=== PATIENT | male | born 1945 | race Caucasian/White ===

== ENCOUNTER 2023-01-08 10:28 | Outpatient (OUT) | payer MEDICARE, SELFPAY ==
--- NOTE | 2023-01-08 11:05 | P.CN_ITS ---
Consult Note: HPI Data of Consult Patient: known to practice within the last 3 years Requesting Physician: HUBERT LOPEZ NP Primary Care Provider: Shaikh Dotty MD Consult Narrative Narrative: Vasyl Broussard a pleasant 77 year old male presents for follow up on chronic low back pain, today pain is 2/10. Patient is following with [facility] Neurosurgery for back pain and is pending MRI. Patient has been taking lyrica 75mg q day, norco 5/325 2-3 times a day PRN for pain, and baclofen 10mg PRN HS. cc:: CC: HUBERT LOPEZ NP Review of Systems ROS Status of ROS 10 or more systems reviewed and unremarkable except as noted in history and below Exam Constitutional Common normals: no apparent distress, average body habitus, oriented x3, healthy appearing, alert and well nourished General appearance: cooperative HENHI Common normals: normocephalic Head and scalp: normocephalic Mouth: oral and palatal mucosa normal Eye Common normals: PERRL Pupil: PERRL Neck & C-Spine Common normals: full ROM General: normal visual inspection Chest Common normals: inspection of chest normal Respiratory Common normals: normal respiratory effort, no retractions and no use of accessory muscles Back & Pelvis Common normals: thoracic and lumbar spine normal to inspection Thoracic spine/upper back: normal to inspection and thoracic ROM normal Lumbar spine/lower back: normal to inspection, ROM limited, pain with ROM and straight leg raise negative bilaterally Other: diffuse low back pain without radiculopathy, facet loading bilaterally causes discomfort. no tenderness to PSIS or SIJ joints upon palpation. Extremity Common normals: normal to inspection, full ROM, normal capillary refill, no clubbing, cyanosis or edema, no calf tenderness and no pedal edema Other: patient reports intermittent claudication, known history Neuro Common normals: oriented x3, CN's II-XII intact bilaterally, moves all extremities, no focal motor deficits, no sensory deficits noted, deep tendon reflexes 2+ bilaterally and gait normal Sensorium/orientation: alert Motor exam: strength 5/5 throughout and no movement abnormalities noted Psych Common normals: mental status grossly normal, thought process normal, cooperative, affect normal, speech normal and activity/motor behavior normal Appearance: grossly normal Speech: normal speech Thought process: normal thought process Assessment and Plan Assessment and Plan (1) Lumbar spondylosis: (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 I feel these medications are improving the patient's quality of life and allow them to tolerate activities of daily living as well as participate in recreational activity.? The patient does not report intolerable side effects. The patient is NOT opioid naive and non-pharmacologic and non-opioid treatment has failed to significantly relieve the patient's pain and improve functionality. The patient has a diagnosis that is related to a somatic or visceral pain etiology. ? ?? I reviewed with the patient the potential risks and side effects with the use of? opioid medications including but not limited to respiratory depression,? sedation, and even . I verified the patient has access to naloxone should? these effects occur. I advised the patient to avoid the use of any other? sedation substances including alcohol, THC, and benzodiazepines while? taking opioid medications due to the risk of compounding side effects and? detrimental outcomes. I reviewed the PUBLIC HEALTH PROFESSOR, pain treatment agreement, urine? drug screen, and opioid start talking forms. The patient was advised to let? their family know they had Naloxone in case they would need to administer? the medication.? ?? A drug screen was completed within the last year, and no aberrancies were noted regarding their use of controlled substances. The patient understands they are subject to the terms and conditions of the pain contract that they have signed. ? ?? I have checked an OARRS report on this patient today and there are no aberrancies noted in the prescribing history.? (3) Medication management: (4) Muscle spasm: Plan continue follow up with [facility] change lyrica to 75mg BID, evaluate blood work and patient response to medication at next visit (has tried gabapentin with success in the past) continue norco 5/325 BID-TID PRN pain nalaxone discussed, previously prescribed continue baclofen 10mg prn HS f/u in one month
== END 2023-01-08 10:29 | disposition home or self-care (01) ==
PROVIDERS: PCP Internal Medicine; Visit Provider Nurse Practitioner
DX: M47.816 Spondylosis without myelopathy or radiculopathy, lumbar region (principal); Z79.891 Long term (current) use of opiate analgesic
CPT/HCPCS: G0463

== ENCOUNTER 2023-02-05 12:47 | Outpatient (OUT) | payer MEDICARE, SELFPAY ==
--- NOTE | 2023-02-05 13:15 | P.CN_ITS ---
Consult Note: HPI Data of Consult Patient: known to practice within the last 3 years Requesting Physician: Jennie Ferrera NP Primary Care Provider: Shaikh Dotty MD Consult Narrative Narrative: Vasyl Broussard a pleasant 77 year old male presents for follow up on chronic low back pain, today pain is 3/10. Patient is following with [facility] for back pain and is pending MRI. Patient did not do well with increase of lyrica 75mg BID, caused dizziness and fogginess. Patient continues to have moderate to severe intermittent pain, norco works well for this. cc:: CC: Jennie Ferrera NP Review of Systems ROS Status of ROS 10 or more systems reviewed and unremarkable except as noted in history and below Musculoskeletal Reports: back pain Exam Constitutional Documenting provider has reviewed patient's vital signs: yes Common normals: no apparent distress, oriented x3, healthy appearing, alert and well nourished General appearance: cooperative HENMT Common normals: normocephalic, hearing grossly normal bilaterally and moist oral mucous membranes Head and scalp: normocephalic Eye Common normals: PERRL Pupil: PERRL Neck & C-Spine Common normals: full ROM General: normal visual inspection Chest Common normals: inspection of chest normal Respiratory Common normals: normal respiratory effort, no retractions and no use of accessory muscles Back & Pelvis Lumbar spine/lower back: ROM limited, pain with ROM and straight leg raise negative bilaterally Extremity Common normals: normal to inspection and full ROM Neuro Common normals: oriented x3, CN's II-XII intact bilaterally, moves all extremities, no focal motor deficits, no sensory deficits noted and deep tendon reflexes 2+ bilaterally Sensorium/orientation: alert Gait (neuro): antalgic Motor exam: strength 5/5 throughout and no movement abnormalities noted Other: intermittent numbness burning to BLE. Psych Common normals: mental status grossly normal, thought process normal, cooperative, affect normal, speech normal and activity/motor behavior normal Speech: normal speech Thought process: normal thought process Results Additional Findings Additional findings: I have checked an OARRS report on this patient today and there are no aberrancies noted in the prescribing history.?? A drug screen was completed and reviewed within the last year, and if there has not been a drug screen completed we ordered one today to monitor higher risk, state monitored pain medication use. As part of providing excellent, safe, comprehensive care, the following was completed at our patient's visit: 1. A medication reconciliation and review to ensure accurate knowledge of current/active medications, including asking our patients to inform us about any [id number] medications or herbal remedies/nutritional supplements/alternative remedies. 2. A review to specifically ensure our patients have had annual screening for: elevated body mass index (BMI), tobacco use, screening for depression, and screening for unhealthy alcohol use. When screening is concerning, patients are provided with education and the specific recommendation to discuss the concerning health issue and treatment options with their primary care provider. 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
== END 2023-02-05 12:48 | disposition home or self-care (01) ==
PROVIDERS: PCP Internal Medicine; Visit Provider Nurse Practitioner
DX: M47.816 Spondylosis without myelopathy or radiculopathy, lumbar region (principal); M62.838 Other muscle spasm; Z79.891 Long term (current) use of opiate analgesic; N18.9 Chronic kidney disease, unspecified; M79.2 Neuralgia and neuritis, unspecified
CPT/HCPCS: G0463

== ENCOUNTER 2023-03-18 13:15 | Outpatient (OUT) | payer MEDICARE, SELFPAY ==
--- NOTE | 2023-03-18 14:13 | P.CN_ITS ---
Consult Note: HPI Data of Consult Patient: known to practice within the last 3 years Requesting Physician: Jennie Ferrera NP Primary Care Provider: Shaikh Dotty MD Consult Narrative Narrative: Vasyl Broussard a pleasant 77 year old male presents for follow up on chronic low back pain and bilateral hip, today pain is 3/10. Patient is following with [facility] for back pain. Patient has been tolerating gabapentin 100mg QD well without side effects, noticing mild improvement in pain. cc:: CC: Jennie Ferrera NP Review of Systems ROS Status of ROS 10 or more systems reviewed and unremarkable except as noted in history and below Musculoskeletal Reports: back pain and joint pain Meds Home Medications and Allergies Home Medications Medication Instructions Recorded Confirmed Type amlodipine 10 mg tablet 10 mg PO DAILY 02/05/23 02/05/23 History aspirin 81 mg capsule 81 mg PO DAILY 02/05/23 02/05/23 History atenolol 50 mg tablet 50 mg PO DAILY 02/05/23 02/05/23 History baclofen 10 mg tablet 10 mg PO DAILY 02/05/23 02/05/23 History ezetimibe 10 mg tablet 10 mg PO DAILY 02/05/23 02/05/23 History gabapentin 100 mg capsule 100 mg PO DAILY #30 caps 02/05/23 Rx hydrocodone 7.5 mg-acetaminophen 1 tab PO TID PRN pain #90 tabs 02/05/23 Rx 325 mg tablet pregabalin 75 mg capsule (Lyrica) 75 mg PO TID 02/05/23 02/05/23 History terazosin 10 mg capsule 10 mg PO DAILY 02/05/23 02/05/23 History hydrocodone 7.5 mg-acetaminophen 1 tab PO TID PRN pain #90 tabs 03/09/23 Rx 325 mg tablet Allergies Allergy/AdvReac Type Severity Reaction Status Date / Time No Known Drug Allergies Allergy Verified 02/05/23 13:58 Exam Constitutional Documenting provider has reviewed patient's vital signs: yes Common normals: no apparent distress, oriented x3, healthy appearing, alert and well nourished General appearance: cooperative HENMT Common normals: normocephalic, hearing grossly normal bilaterally and moist oral mucous membranes Head and scalp: normocephalic Eye Common normals: PERRL Pupil: PERRL Neck & C-Spine Common normals: full ROM General: normal visual inspection Chest Common normals: inspection of chest normal Respiratory Common normals: normal respiratory effort, no retractions and no use of accessory muscles Back & Pelvis Lumbar spine/lower back: ROM limited, pain with ROM and straight leg raise negative bilaterally Extremity Common normals: normal to inspection and full ROM Left lower extremity: hip joint (pain with external rotation) Neuro Common normals: oriented x3, CN's II-XII intact bilaterally, moves all extremities, no focal motor deficits, no sensory deficits noted and deep tendon reflexes 2+ bilaterally Sensorium/orientation: alert Gait (neuro): antalgic Motor exam: strength 5/5 throughout and no movement abnormalities noted Other: intermittent numbness burning to BLE. 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
== END 2023-03-18 13:16 | disposition home or self-care (01) ==
LOC: PM 13:24
PROVIDERS: PCP Internal Medicine; Visit Provider Nurse Practitioner
DX: M47.896 Other spondylosis, lumbar region (principal); R25.2 Cramp and spasm; Z79.891 Long term (current) use of opiate analgesic; M79.2 Neuralgia and neuritis, unspecified; N28.9 Disorder of kidney and ureter, unspecified
CPT/HCPCS: G0463

== ENCOUNTER 2023-04-22 13:17 | Outpatient (OUT) | payer MEDICARE, SELFPAY ==
--- NOTE | 2023-04-22 13:55 | P.CN_ITS ---
Consult Note: HPI Data of Consult Patient: known to practice within the last 3 years Requesting Physician: Jennie Ferrera NP Primary Care Provider: Shaikh Dotty MD Consult Narrative Narrative: Vasyl Broussard a pleasant 77 year old male presents for follow up on chronic low back pain and bilateral hip, today pain is 6/10. Patient is following with [facility] Neurosurgery for back pain. Patient has been tolerating gabapentin 100mg QD well without side effects, noticing mild improvement in pain, had dizziness with 200mg. cc:: CC: Jennie Ferrera NP Review of Systems ROS Status of ROS 10 or more systems reviewed and unremarkable except as noted in history and below Musculoskeletal Reports: back pain and joint pain Meds Home Medications and Allergies Home Medications Medication Instructions Recorded Confirmed Type amlodipine 10 mg tablet 10 mg PO DAILY 02/05/23 02/05/23 History aspirin 81 mg capsule 81 mg PO DAILY 02/05/23 02/05/23 History atenolol 50 mg tablet 50 mg PO DAILY 02/05/23 02/05/23 History baclofen 10 mg tablet 10 mg PO DAILY 02/05/23 02/05/23 History ezetimibe 10 mg tablet 10 mg PO DAILY 02/05/23 02/05/23 History gabapentin 100 mg capsule 100 mg PO DAILY #30 caps 02/05/23 Rx hydrocodone 7.5 mg-acetaminophen 1 tab PO TID PRN pain #90 tabs 02/05/23 Rx 325 mg tablet pregabalin 75 mg capsule (Lyrica) 75 mg PO TID 02/05/23 02/05/23 History terazosin 10 mg capsule 10 mg PO DAILY 02/05/23 02/05/23 History hydrocodone 7.5 mg-acetaminophen 1 tab PO TID PRN pain #90 tabs 03/09/23 Rx 325 mg tablet hydrocodone 7.5 mg-acetaminophen 1 tab PO TID PRN pain #90 tabs 04/07/23 Rx 325 mg tablet Allergies Allergy/AdvReac Type Severity Reaction Status Date / Time No Known Drug Allergies Allergy Verified 02/05/23 13:58 Exam Constitutional Documenting provider has reviewed patient's vital signs: yes Common normals: no apparent distress, oriented x3, healthy appearing, alert and well nourished General appearance: cooperative HENMT Common normals: normocephalic, hearing grossly normal bilaterally and moist oral mucous membranes Head and scalp: normocephalic Eye Common normals: PERRL Pupil: PERRL Neck & C-Spine Common normals: full ROM General: normal visual inspection Chest Common normals: inspection of chest normal Respiratory Common normals: normal respiratory effort, no retractions and no use of accessory muscles Back & Pelvis Lumbar spine/lower back: ROM limited, pain with ROM and straight leg raise negative bilaterally Extremity Common normals: normal to inspection and full ROM Left lower extremity: hip joint (pain with external rotation) Neuro Common normals: oriented x3, CN's II-XII intact bilaterally, moves all extremities, no focal motor deficits, no sensory deficits noted and deep tendon reflexes 2+ bilaterally Sensorium/orientation: alert Gait (neuro): antalgic Motor exam: strength 5/5 throughout and no movement abnormalities noted Other: intermittent numbness burning to BLE. Psych Common normals: mental status grossly normal, thought process normal, cooperative, affect normal, speech normal and activity/motor behavior normal Speech: normal speech Thought process: normal thought process Results Additional Findings Additional findings: I have checked an OARRS report on this patient today and there are no aberrancies noted in the prescribing history.?? A drug screen was completed and reviewed within the last year, and if there has not been a drug screen completed we ordered one today to monitor higher risk, state monitored pain medication use. As part of providing excellent, safe, comprehensive care, the following was completed at our patient's visit: 1. A medication reconciliation and review to ensure accurate knowledge of curr ent/active medications, including asking our patients to inform us about any [id number] medications or herbal remedies/nutritional supplements/alternative remedies. 2. A review to specifically ensure our patients have had annual screening for: elevated body mass index (BMI), tobacco use, screening for depression, and screening for unhealthy alcohol use. When screening is concerning, patients are provided with education and the specific recommendation to discuss the concerning health issue and treatment options with their primary care provider. 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 The patient does not report intolerable side effects. The patient is NOT opioid naive and non-pharmacologic and non-opioid treatment has failed to significantly relieve the patient's pain and improve functionality. The patient has a diagnosis that is related to a somatic or visceral pain etiology. ? ?? I reviewed with the patient the potential risks and side effects with the use of? opioid medications including but not limited to respiratory depression,? sedation, and even . I verified the patient has access to naloxone should? these effects occur. I advised the patient to avoid the use of any other? sedation substances including alcohol, THC, and benzodiazepines while? taking opioid medications due to the risk of compounding side effects and? detrimental outcomes. I reviewed the CORPORATE LAW SPECIALIST, pain treatment agreement, urine? drug screen, and opioid start talking forms. The patient was advised to let? their family know they had Naloxone in case they would need to administer? the medication.? ?? A drug screen was completed within the last year, and no aberrancies were noted regarding their use of controlled substances. The patient understands they are s ubject to the terms and conditions of the pain contract that they have signed. ? ?? I have checked an OARRS report on this patient today and there are no aberrancies noted in the prescribing history.? Plan continue current medications patient looking for NS for back surgery f/u 3 months for medication management
== END 2023-04-22 13:18 | disposition home or self-care (01) ==
LOC: PM 13:18
PROVIDERS: PCP Internal Medicine; Visit Provider Nurse Practitioner
DX: M48.061 Spinal stenosis, lumbar region without neurogenic claudication (principal); N18.9 Chronic kidney disease, unspecified; M47.816 Spondylosis without myelopathy or radiculopathy, lumbar region; Z79.891 Long term (current) use of opiate analgesic
CPT/HCPCS: G0463

== ENCOUNTER 2023-04-29 13:26 | Outpatient (OUT) | payer MEDICARE, SELFPAY | END 2023-04-29 14:00 | disposition home or self-care (01) | LOC: LAB 13:28 | PROVIDERS: PCP Internal Medicine; Visit Provider Physician Assistant | DX: R35.1 Nocturia (principal) | CPT/HCPCS: 36415; 80051 ==

== ENCOUNTER 2023-05-04 12:04 | Outpatient (OUT) | payer MEDICARE, SELFPAY ==
[2023-05-04 12:25] LABS: Anion Gap 14.9; Carbon Dioxide 23.6 mmol/L (21.0-32.0); Chloride 105 mmol/L (98-107); Potassium 4.5 mmol/L (3.5-5.1); Sodium 139 mmol/L (136-145)
== END 2023-05-04 12:05 | disposition home or self-care (01) ==
LOC: LAB 12:04
PROVIDERS: PCP Internal Medicine; Visit Provider Physician Assistant
DX: R35.1 Nocturia (principal)
CPT/HCPCS: 36415; 80051

== ENCOUNTER 2023-05-19 08:48 | Outpatient (OUT) | payer MEDICARE, SELFPAY ==
[2023-05-19 10:24] LABS: Cholesterol 158 mg/dL (<=200); HDL Cholesterol 40 mg/dL (40-60); LDL Cholesterol Calculated 96.4 mg/dL; Triglycerides 108 mg/dL (<=150); VLDL CHOLESTEROL 21.6 mg/dL
== END 2023-05-19 08:49 | disposition home or self-care (01) ==
LOC: LAB 08:48
PROVIDERS: PCP Internal Medicine; Visit Provider Internal Medicine
DX: R00.1 Bradycardia, unspecified (principal); E78.5 Hyperlipidemia, unspecified
CPT/HCPCS: 36415; 80061; 84443

== ENCOUNTER 2023-05-19 08:49 | Outpatient (OUT) | payer MEDICARE, SELFPAY ==
[2023-05-19 10:11] LABS: Anion Gap 16.8; Carbon Dioxide 21.9 mmol/L (21.0-32.0); Chloride 105 mmol/L (98-107); Potassium 4.7 mmol/L (3.5-5.1); Sodium 139 mmol/L (136-145)
== END 2023-05-19 08:50 | disposition home or self-care (01) ==
LOC: LAB 08:50
PROVIDERS: PCP Internal Medicine; Visit Provider Physician Assistant
DX: R35.1 Nocturia (principal)
CPT/HCPCS: 36415; 80051; 80061; 84443

== ENCOUNTER 2023-07-29 13:18 | Outpatient (OUT) | payer MEDICARE, SELFPAY ==
--- NOTE | 2023-07-29 13:52 | P.CN_ITS ---
Consult Note: HPI Data of Consult Patient: known to practice within the last 3 years Requesting Physician: Jennie Ferrera NP Primary Care Provider: Shaikh Dotty MD Consult Narrative Reason for consult: f/u Narrative: Dexter Broussard a pleasant 78 year old male presents for evaluation and management of chronic low back pain. Has noticed severe increase in pain over the last few weeks. Continues to f/u with NS, recent NS at [facility] Dr Reynolds. Patient reports he was not pleased with the care he received there and is following with Dr Watson next. I did review part of Dr Zavala note which suggests the patient should not have surgery as he is smoking, but may require lumbar fusion in the future, and that he has opioid induced hyperalgesia. Patient reporting pain today 10, does increase with activity, decreased with medications and sitting. Patient reports norco 7.5-325 TID PRN provides moderate pain relief without side effects, continues to find benefit from baclofen 10mg hs and gabapentin 100mg BID but cannot tolerate higher doses. Patient cannot take NSAIDs as he is on plavix, has failed to benefit from tylenol and PT in the past. cc:: CC: Jennie Ferrera NP Review of Systems ROS Status of ROS 10 or more systems reviewed and unremark able except as noted in history and below Musculoskeletal Reports: back pain Meds Home Medications and Allergies Home Medications Medication Instructions Recorded Confirmed Type amlodipine 10 mg tablet 10 mg PO DAILY 02/05/23 02/05/23 History aspirin 81 mg capsule 81 mg PO DAILY 02/05/23 02/05/23 History atenolol 50 mg tablet 50 mg PO DAILY 02/05/23 02/05/23 History baclofen 10 mg tablet 10 mg PO DAILY 02/05/23 02/05/23 History ezetimibe 10 mg tablet 10 mg PO DAILY 02/05/23 02/05/23 History gabapentin 100 mg capsule 100 mg PO DAILY #30 caps 02/05/23 Rx hydrocodone 7.5 mg-acetaminophen 1 tab PO TID PRN pain #90 tabs 02/05/23 Rx 325 mg tablet pregabalin 75 mg capsule (Lyrica) 75 mg PO TID 02/05/23 02/05/23 History terazosin 10 mg capsule 10 mg PO DAILY 02/05/23 02/05/23 History hydrocodone 7.5 mg-acetaminophen 1 tab PO TID PRN pain #90 tabs 03/09/23 Rx 325 mg tablet hydrocodone 7.5 mg-acetaminophen 1 tab PO TID PRN pain #90 tabs 04/07/23 Rx 325 mg tablet hydrocodone 7.5 mg-acetaminophen 1 tab PO TID PRN pain #90 tabs 05/07/23 Rx 325 mg tablet hydrocodone 7.5 mg-acetaminophen 1 tab PO TID PRN pain #90 tabs 06/04/23 Rx 325 mg tablet hydrocodone 7.5 mg-acetaminophen 1 tab PO TID PRN pain #90 tabs 07/08/23 Rx 325 mg tablet hydrocodone 7.5 mg-acetaminophen 1 tab PO TID PRN pain #90 tabs 07/09/23 Rx 325 mg tablet Allergies Allergy/AdvReac Type Severity Reaction Status Date / Time No Known Drug Allergies Allergy Verified 02/05/23 13:58 Exam Constitutional Documenting provider has reviewed patient's vital signs: yes Common normals: no apparent distress, oriented x3, healthy appearing, alert and well nourished General appearance: cooperative HENMT Common normals: normocephalic, hearing grossly normal bilaterally and moist oral mucous membranes Head and scalp: normocephalic Eye Common normals: PERRL Pupil: PERRL Neck & C-Spine Common normals: full ROM General: normal visual inspection Chest Common normals: inspection of chest normal Respiratory Common normals: normal respiratory effort, no retractions and no use of accessory muscles Back & Pelvis Lumbar spine/lower back: ROM limited, pain with ROM and straight leg raise positive right Extremity Common normals: normal to inspection and full ROM Left lower extremity: hip joint (pain with external rotation) Neuro Common normals: oriented x3, CN's II-XII intact bilaterally, moves all extremities, no focal motor deficits, no sensory deficits noted and deep tendon reflexes 2+ bilaterally Sensorium/orientation: alert Gait (neuro): antalgic Motor exam: strength 5/5 throughout and no movement abnormalities noted Other: intermittent numbness burning to BLE. Psych Common normals: mental status grossly normal, thought process normal, cooperative, affect normal, speech normal and activity/motor behavior normal Speech: normal speech Thought process: normal thought process Results Additional Findings Additional findings: I have checked an [place] report on this patient today and there are no aberrancies noted in the prescribing history.?? A drug screen was completed and reviewed within the last year, and if there has not been a drug screen completed we ordered one today to monitor higher risk, state monitored pain medication use. As part of providing excellent, safe, comprehensive care, the following was completed at our patient's visit: 1. A medication reconciliation and review to ensure accurate knowledge of current/active medications, including asking our patients to inform us about any [id number] medications or herbal remedies/nutritional supplements/alternative remedies. 2. A review to specifically ensure our patients have had annual screening for: elevated body mass index (BMI), tobacco use, screening for depression, and screening for unhealthy alcohol use. When screening is concerning, patients are provided with education and the specific recommendation to discuss the concerning health issue and treatment options with their primary care provider. 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 The patient does not report intolerable side effects. The patient is NOT opioid naive and non-pharmacologic and non-opioid treatment has failed to significantly relieve the patient's pain and improve functionality. The patient has a diagnosis that is related to a somatic or visceral pain etiology. ? ?? I reviewed with the patient the potential risks and side effects with the use of? opioid medications including but not limited to respiratory depression,? sedation, and even . I verified the patient has access to naloxone should? these effects occur. I advised the patient to avoid the use of any other? sedation substances including alcohol, THC, and benzodiazepines while? taking opioid medications due to the risk of compounding side effects and? detrimental outcomes. I reviewed the DENTISTRY TEACHER, pain treatment agreement, urine? drug screen, and opioid start talking forms. The patient was advised to let? their family know they had Naloxone in case they would need to administer? the medication.? ?? A drug screen was completed within the last year, and no aberrancies were noted regarding their use of controlled substances. The patient understands they are subject to the terms and conditions of the pain contract that they have signed. ? ?? I have checked an [place]AR[place] report on this patient today and there are no aberrancies noted in the prescribing history.? Plan Patient does not have opioid induced hyperalgesia, continues to find functional improvement and ability to complete housework, complete ADLs, walk and get out of the house with the aid of his medications. Prior to current dose of medications his fox was 60%, now he ranges between 50-54% and reports improvement in VAS. 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 Smoking cessation discussed.
== END 2023-07-29 13:19 | disposition home or self-care (01) ==
LOC: PM 13:19
PROVIDERS: PCP Internal Medicine; Visit Provider Nurse Practitioner
DX: M48.062 Spinal stenosis, lumbar region with neurogenic claudication (principal); N18.9 Chronic kidney disease, unspecified; M47.816 Spondylosis without myelopathy or radiculopathy, lumbar region; Z79.891 Long term (current) use of opiate analgesic
CPT/HCPCS: G0463

== ENCOUNTER 2023-08-10 10:43 | Day surgery (SDC) | payer MEDICARE, SELFPAY ==
--- OUTSIDE RECORDS SUMMARY | 2023-08-10 10:56 | XMS_ITS | CCD ---
Author Name Unknown Address [address] [place] [address] Organization [facility] Care Team Providers Care Beer Cooler Name Role Phone Sterling Vizcaino Primary Care Physician [phone] [place] Unavailable Dotty MAK, [facility] Primary Care Provider Barbara Johnston MD Unavailable DOTTY [facility] Primary Care Physician [phone] Dotty MAK [facility] Primary Care Provider Barbara Johnston MD Unavailable Constance Beverly Unavailable Unavailable Dotty MAK [facility] Primary Care Provider Barbara Johnston MD Unavailable [phone] Constance Beverly Unavailable Unavailable MD Dotty [facility] Primary Care Provider MD Zeinab Justice Attending Provider [phone] MD Lyla Nazario Attending Provider LAKSHMIPATHY ., NARENDRANATH Attending Kiera vailable LAKSHMIPATHY ., NARENDRANATH Admitting Kiera vailable JOHN .HUBERT Consulting Unavailable [facility] Primary Care Unavailable KRISTEN ., DR HOSEA Davison Admitting Unavailable LOPEZ MENJIVAR Consulting Unavailable KRISTEN ., DR HOSEA Davison Attending Unavailable [facility] Primary Care Unavailable KRISTEN ., DR HOSEA Davison Admitting Unavailable KRISTEN ., DR HOSEA Davison Consulting Unavailable [facility] Primary Care Unavailable OLIVA ., DR HOSEA Davison Attending Unavailable FAWDED, [facility] H Consulting Unavailable HOBBS ., LOPEZ Consulting Unavailable OLIVA ., DR HOSEA Davison Attending Unavailable OLIVA ., DR HOSEA Davison Admitting [facility] Primary Care Unavailable OLIVA ., DR HOSEA Davison Consulting Unavailable OLIVA ., DR HOSEA Davison Admitting Unavailable OLIVA ., DR HOSEA Davison Consulting [facility] Primary Care Unavailable OLIVA ., DR HOSEA Davison Attending Unavailable [facility]WD[facility], [facility] H Consulting Unavailable JUNGERMANN, JONATHAN Consulting Unavailable HOBBS ., LOPEZ Consulting Unavailable OLIVA ., DR HOSEA Davison Admitting [facility] Primary Care Unavailable OLIVA ., DR HOSEA Davison Attending Unavailable HOBBS ., LOPEZ Consulting Unavailable OLIVA ., DR HOSEA Davison Attending Unavailable OLIVA ., DR HOSEA Davison Admitting [facility] Primary Care Unavailable OLIVA ., DR HOSEA Davison Attending Unavailable OLIVA ., DR HOSEA Davison Admitting [facility] Primary Care Unavailable OLIVA ., DR HOSEA Davison Consulting Unavailable HOBBS ., LOPEZ Consulting Unavailable OLIVA ., DR HOSEA Davison Attending Unavailable OLIVA ., DR HOSEA Davison Admitting [facility] Primary Care Unavailable OLIVA ., DR HOSEA Davison Admitting [facility] Primary Care Unavailable OLIVA ., DR HOSEA Davison Attending Unavailable OLIVA ., DR HOSEA Davison Admitting Unavailable OLIVA ., DR HOSEA Davison Consulting [facility] Primary Care Unavailable OLIVA ., DR HOSEA Davison Attending Unavailable [facility], [facility] Primary Care Unavailable JOHNSTON ., DR JIMENEZ Consulting Unavailable JOHNSTON ., DR JIMENEZ Attending Unavailable JOHNSTON ., DR JIMENEZ Admitting Unavailable VIVIAN, THEO Consulting Unavailable VIVIAN, THEO Attending Unavailable VIVIAN, THEO Admitting Unavailable [facility], [facility] Primary Care Unavailable RUT KIRBY Attending Unavailable RUT KIRBY Admitting [facility]available [facility] H Primary Care Unavailable MD Justice Storm Primary Care Provider [phone] MD Justice Storm Other Provider ABE Ferrera Attending Provider [phone] Anesthesiologist, Temporary Attending Provider U prabhu GarciaBonnie groves Unavailable MD Lyla Nazario Attending Provider MD Jose Martin Mchugh Attending Provider MD Theo Park Attending Provider Jose Martin Mchugh Unavailable MD Dotty [facility] Primary Care Provider Anesthesiologist, Temporary Attending Provider U MD Lyla Carvalho Attending Provider MD Jose Martin Mchugh Attending Provider [phone] MD Theo Park Attending Provider MD Dotty [facility] Primary Care Provider [phone] MD Justice Storm Attending Provider FAWWAD, [facility] Primary Care Unavailable Hyun NAZARIO Attending [facility]available [facility] Primary Care Unavailable [facility] Primary Care Unavailable [facility] Primary Care Unavailable Hyun NAZARIO Attending Unavailable [facility] Primary Care Unavailable [facility] Primary Care Unavailable [facility] Primary Care Unavailable JOSE NICHOLS Attending Unavailable Hyun NAZARIO Referring Unavailable [facility], [facility] Primary Care Unavailable BHUMIKA BETTS Attending Unavailable Dotty MAK [facility] Primary Care Provider Theo Park Admitting Unavailable Theo Park Attending [facility]available [facility] Primary Care Unavailable Jose Martin Mchugh Admitting Unavailabl e Fawwad, Carreon Primary Care Unavailable Jose Martin Mchugh Attending Unavailabl e [place], [facility] Primary Care Unavailable FaShaikh almonte Attending Unavailable [facility] Admitting Unavailable [place], [facility] Primary Care Unavailable Ramirez Grayson Admitting Unavailable Ramirez Grayson Attending Unavailable Anesthesiologist, Temporary Admitting Unav ailable Anesthesiologist, Temporary Attending Unav ailable [facility] Unavailable Lyla Nazario Admitting Unavailable Lyla Nazario Attending Unavailable [facility] Unavailable [facility] Primary Care Unavailable Langenberg, Jose Martin T Admitting Unavailabl e Langenberg, Jose Martin T Attending Unavailabl e [facility] Consulting Unavailable [facility] Unavailable Iban, Jennie E Admitting Unavailable Iban, Jennie E Attending Unavailable [facility] Unavailable Langenberg, Jose Martin T Admitting Unavailabl e Langenberg, Jose Martin T Attending Unavailabl e [facility] Unavailable Langenberg, Jose Martin T Admitting Unavailabl e Langenberg, Jose Mratin T Attending Unavailabl JOSE Laws Referring Unavailable [facility] Care Unavailable KODI REYNOLDS Attending Unavailable [facility] MD [facility] Provider CHAIM GRAYSON Referring Unavailable [facility] Care Unavailable AYADCHAIM MENDEZ S Referring Unavailable [facility] Care Unavailable AYAD CHAIM S Referring Unavailable [facility] Care Unavailable [facility] Attending Unavailable [facility] Attending Unavailable [facility] Referring Unavailable AYAD CHAIM S Attending Unavailable [facility] Unavailable AYAD, CHAIM S Referring Unavailable AYAD, CHAIM S Referring Unavailable [facility] Unavailable BRITNICLAIRE SHRESTHA Admitting Unavailable BRITNICLAIRE SHRESTHA Attending Unavailable BRITNI, CLAIRE E Admitting Unavailable BRITNI, CLAIRE E Attending Unavailable BRITNI, CLAIRE E Attending Unavailable [facility] Unavailable Barbara JOHNSTON Attending Unavailable BRITNICLAIRE SHRESTHA Attending Unavailable [facility] Care Unavailable BRITNI, CLAIRE E Attending Unavailable [facility] Primary Care Unavailable BRITNI, CLAIRE E Attending Unavailable BRITNI, CLAIRE E Attending Unavailable Allergies Allergy Classification Reported Allergen(s) Allergy Type Date of Onset Reaction(s) Facility (9 sources) ezetimibe; Translations: [ezetimibe] Drug Allergy 3 GI intolerance, Nausea/vomiting [facility] (5 sources) HMG-CoA reductase inhibitor; Translations: [TIMVTOJ-DAN-ER A REDUCTASE INHIBITORS] Drug Intolerance 3 Other [facility] Work Phone: Medications Current Medications Medication Drug Class(es) Dates Sig (Normalized) Sig (Original) acetaminophen 325 mg / HYDROcodone bitartrate 7.5 mg oral tablet (20 sources) Opioid Agonist Start: 01-08-2023 End: 05-19-2023 take 1 tablet by mouth three times daily Hydrocodone-Aceta minophen Active 1 TAB PO Three times daily February 05, 2023 11:00pm Start: 11-09-2021 HYDROcodone-ac etaminophen (NORCO) 5-325 mg per tablet Start: 11-09-2021 End: 02-06-2023 take 1 tablet by mouth twice daily Hydrocodone-Acetaminophen Discontinued 1 TAB PO Twice daily November 21, 2021 11:00pm February 06, 2023 10:57am Start: 03-22-2021 [place] 5/325 Ta b Oral, q6hr, Refill(s) 0 Start Date: 03/22/21 Status: Ordered Start: 03-22-2021 [place] 5/325 Ta b Oral, q6hr, Refill(s) 0 Start Date: 03/22/21 Status: Ordered take 1 tablet by leslie th every six hours as needed [place] 5-325 MG 1 tablet as needed Orally every 6 hrs Active Comment on above: TAKE 1 TABLET BY LESLIE TH TWICE DAILY NEEDED FOR LUMBAR RADICULOPATHY TAKE 1 TABLET BY LESLIE TH THREE TIMES DAILY NEEDED MUST LAST 30 DAYS amLODIPine 10 mg oral tablet (20 sources) Dihydropyridine Calcium Channel Miroslava Start: 1 take 1 mg by mouth once daily amLODIPine 5 mg Tab mg tab(s), Oral, Daily, Refills(s) 0 Start Date: 03/22/21 Status: Ordered Start: 03-22-2021 End: 08-31-2023 take 1 tablet by mouth once daily amLODIPine (Norvasc) 10 mg tablet Take 1 tablet (10 mg) by mouth once daily. 0 06/02/2023 08/31/2023 Active Comment on above: amlodipine 10 mg tab let amoxicillin 500 mg oral capsule (2 sources) Penicillin-class Antibacterial Start: 3 take 1 capsule by mouth every eight hours Amoxicillin 500 MG 1 capsule Orally every 8 hrs for 5 day(s) Mar, Active aspirin 81 mg delayed release oral tablet (20 sources) Platelet Aggregation Inhibitor, Nonsteroidal Anti-inflammatory Drug Start: 3 take 1 tablet by mouth once daily Aspirin (Aspir-81) 81 mg Tablet,Delayed Release (Dr/Ec) Active 81 MG PO Daily February 05, 2023 11:00pm Start: 03-22-2021 take 1 mg by mouth e very four hours aspirin 81 mg oral capsule mg cap(s), Oral, q4hr, Refills(s) 0 Start Date: 03/22/21 Status: Ordered Start: 03-22-2021 aspirin 81 mg cap Take by mouth. 0 03/22/2021 Active take 1 tablet by leslie th once daily Aspirin 81 81 MG 1 tablet Orally Once a day Active Comment on above: Take by mouth. ciprofloxacin 500 mg oral tablet (1 source) Quinolone Antimicrobial Start: 05-13-20 End: 05-27-20 take 1 tablet by mouth twice daily ciprofloxacin HCl (CIPRO) 500 mg tablet Take 1 tablet by mouth twice daily for 14 days. 20 tablet 0 05/13/2022 05/27/2022 Active Comment on above: Take 1 tablet by leslie th twice daily for 14 days. clopidogrel 75 mg oral tablet (9 sources) P2Y12 Platelet Inhibitor Start: 03-23-20 take 1 tablet by mouth once daily clopidogrel (Plavix) 75 mg tablet Take 1 tablet (75 mg) by mouth once daily. 0 04/21/2023 Active Clopidogrel Bisu lfate Active desmopressin acetate 0.1 mg oral tablet (5 sources) Vasopressin Analog, Factor VIII Activator Start: 05-05-2023 take 1 tablet by mouth once daily at bedtime desmopressin (DDAVP) 0.1 mg tablet Take 1 tablet (100 mcg) by mouth once daily at bedtime. 0 05/05/2023 Active Start: 04-21-2023 End: 05-01-2023 take 0.5 tablet by mouth at bedtime desmopressin 0.1 mg oral tablet 0.05 mg = 0.5 tab(s), Oral, As Directed, take a half tab at bedtime, X 10 day(s), # 5 tab(s), Refills(s) 0, Pharmacy: [facility] [id number], 178, cm, 04/21/23 8:36:00 EST, Height/Length Dosing, 92, kg, 04/21/23 8:36:00 EST, Weight Dosing Start Date: 04/21/23 Stop Date: 05/01/23 Status: Ordered diazePAM 5 mg oral tablet (3 sources) Benzodiazepine Start: 03-03-2022 End: 03-15-2022 diazePAM (VALIUM) 5 mg tablet Indications: Malignant neoplasm of prostate (HCC) Take 1 tablet by mouth as directed for 12 days. Take 1 tablet by mouth one hour prior to procedure. 12 tablet 0 03/03/2022 03/15/2022 Active Comment on above: Take 1 tablet by leslie as directed for 12 days. Take 1 tablet by mouth one hour prior to procedure. ergocalciferol 1.25 mg oral capsule (6 sources) Provitamin D2 Compound Start: 03-10-2023 take 1 capsule by mouth every week Ergocalciferol 1.25 MG (27308 UT) 1 capsule Orally Q week for 90 days Mar, Active take 1 capsule by mouth every we ek ergocalciferol (Vitamin D-2) 1.25 MG (07429 UT) capsule Take 1 capsule (1,250 mcg) by mouth 1 (one) time per week. 0 Active ezetimibe 10 mg oral tablet (2 sources) Dietary Cholesterol Absorption Inhibitor Start: 03-25-2021 take 1 mg by mouth once daily ezetimibe 10 mg Tab mg tab(s), Oral, Daily, Refills(s) 0 Start Date: 03/25/21 Status: Ordered gabapentin 100 mg oral capsule (17 sources) Anti-epileptic Agent Start: 02-06-2023 take 1 capsule by mouth once daily at bedtime gabapentin (Neurontin) 100 mg capsule Take 1 capsule (100 mg) by mouth once daily at bedtime. 0 02/11/2023 Active Start: 02-06-2023 take 1 mg by mouth once daily Gabapentin Active MG PO Daily February 06, 2023 12:00am hydroCHLOROthiazide 12.5 mg / lisinopril 20 mg oral tablet (2 sources) Thiazide Diuretic, Angiotensin Converting Enzyme Inhibitor Start: 03-22-2021 take 1 tablet by mouth once daily hydrochlorothiazide-lisinopril 12.5 mg-20 mg Tab tab(s), Oral, Daily, Refill(s) 0 Start Date: 03/22/21 Status: Ordered iv contrast (will be provided with radiology test) (3 sources) Start: 01-06-2023 End: 01-07-2023 iv contrast (will be provide d with radiology test) Indications: Spinal stenosis of lumbar region, unspecified whether neurogenic claudication present MRI LSP Inject, intravenously, once for 1 dose. No IV access, insert saline lock prior to the beginning of sedation, infusion, injection of imaging exam. Discontinue saline lock post exam. If Pt. has a central line or IVAD, may access for administration according to line specific nursing protocol. Once exam is complete flush line and de-access according to line specific nursing protocol in the MR contrast administration guidelines link. 1 Each 0 01/06/2023 01/07/2023 Active Start: 11-21-2022 End: 11-22-2022 iv contrast (will be provide d with radiology test) MRI LSP Inject, intravenously, once for 1 dose. No IV access, insert saline lock prior to the beginning of sedation, infusion, injection of imaging exam. Discontinue saline lock post exam. If Pt. has a central line or IVAD, may access for administration according to line specific nursing protocol. Once exam is complete flush line and de-access according to line specific nursing protocol in the MR contrast administration guidelines link. 1 Each 0 11/21/2022 11/22/2022 Active Start: 11-19-2022 End: 11-20-2022 iv contrast (will be provide d with radiology test) MRI LSP Inject, intravenously, once for 1 dose. No IV access, insert saline lock prior to the beginning of sedation, infusion, injection of imaging exam. Discontinue saline lock post exam. If Pt. has a central line or IVAD, may access for administration according to line specific nursing protocol. Once exam is complete flush line and de-access according to line specific nursing protocol in the MR contrast administration guidelines link. 1 Each 0 11/19/2022 11/20/2022 Active Comment on above: MRI LSP Inject, intr avenously, once for 1 dose. No IV access, insert saline lock prior to the beginning of sedation, infusion, injection of imaging exam. Discontinue saline lock post exam. If Pt. has a central line or IVAD, may access for administration according to line specific nursing protocol. Once exam is complete flush line and de-access according to line specific nursing protocol in the MR contrast administration guidelines link. montelukast 10 mg oral tablet (2 sources) Leukotriene Receptor Antagonist Start: take 1 mg by mouth once daily montelukast 10 mg Tab mg tab(s), Oral, Daily, Refills(s) 0 Start Date: 03/25/21 Status: Ordered Oxybutinin XL 5mg (4 sources) Oxybutinin XL 5m g ONCE A DAY Active Oxybutinin XL 5m g Active oxybutynin chloride 5 mg oral tablet (9 sources) Cholinergic Muscarinic Antagonist Start: 02-11-2023 take 2 tablets by mouth at bedtime oxybutynin 5 mg Tab 10 mg = 2 tab(s), Oral, Bedtime, # 60 tab(s), Refills(s) 3, Pharmacy: [facility] [id number], 178, cm, 02/11/23 14:50:00 EDT, Height/Length Dosing, 92, kg, 02/11/23 14:50:00 EDT, Weight Dosing Start Date: 02/11/23 Status: Ordered Start: 02-06-2023 take 5 mg by mouth o nce daily at bedtime Oxybutynin Chloride Active 5 MG PO Daily at bedtime February 05, 2023 11:00pm Start: 12-03-2022 take 1 tablet by leslie th at bedtime oxybutynin 5 mg Tab 5 mg = 1 tab(s), Oral, Bedtime, # 30 tab(s), Refills(s) 2, Pharmacy: [facility] [id number], 178, cm, 12/03/22 15:00:00 EDT, Height/Length Dosing, 93, kg, 12/03/22 15:00:00 EDT, Weight Dosing Start Date: 12/03/22 Status: Ordered pravastatin sodium 40 mg oral tablet (20 sources) HMG-CoA Reductase Inhibitor Start: 03-23-2023 take 1 tablet by mouth once daily at bedtime pravastatin (Pravachol) 40 mg tablet Take 1 tablet (40 mg) by mouth once daily at bedtime. 0 04/21/2023 Active Start: 03-22-2021 End: 03-23-2023 pravastatin (PRAVACHOL) 10 m g tablet pravastatin 10 mg tablet 0 03/22/2021 Active Comment on above: pravastatin 10 mg ta blet sildenafil 50 mg oral tablet (5 sources) Phosphodiesterase 5 Inhibitor Start: 04-21-20 sildenafil (Viagra) 50 mg tablet Take 1 tablet (50 mg) by mouth if needed. 0 04/21/2023 Active valsartan 80 mg oral tablet (3 sources) Angiotensin 2 Receptor Miroslava Start: 06-04-19 End: 06-03-19 take 1 tablet by mouth once daily valsartan (Diovan) 80 mg tablet Indications: Hypertension, unspecified type Take 1 tablet (80 mg) by mouth once daily. 30 tablet 11 06/04/2023 06/03/2024 Active vitamin B12 (2 sources) Vitamin B12 Start: 03-22-20 Vitamin B12 Refills(s) 0 Start Date: 03/22/21 Status: Ordered Vitamin D2 50,000 intl units (1.25 mg) oral capsule (2 sources) Start: 04-21-20 take 1 capsule by mouth every week Vitamin D2 50,000 intl units (1.25 mg) oral capsule International_Unit cap(s), Oral, qWeek Start Date: 04/21/23 Status: Ordered Completed/Discontinued Medications Medication Drug Class(es) Dates Sig (Normalized) Sig (Original) atenolol 50 mg oral tablet (20 sources) beta-Adrenergic Miroslava Start: 03-22-2021 atenolol (TENORMIN) 50 mg tablet atenolol 50 mg tablet 0 03/22/2021 Active Comment on above: atenolol 50 mg table t baclofen 10 mg oral tablet (20 sources) gamma-Aminobutyric Acid-ergic Agonist Start: 11-04-2021 baclofen (LIORESAL) 10 mg tablet baclofen 10 mg tablet 0 11/04/2021 Active Start: 11-04-2021 take 1 mg by mouth t hree times daily baclofen 10 mg Tab mg tab(s), Oral, TID, Refills(s) 0 Start Date: 11/04/21 Status: Ordered Comment on above: baclofen 10 mg table t ergocalciferol, vitamin D2, (VITAMIN D2 ORAL) (2 sources) ergocalciferol, vitamin D2, (VITAMIN D2 ORAL) Take by mouth. 0 Active Comment on above: Take by mouth. lisinopril 20 mg oral tablet (20 sources) Angiotensin Converting Enzyme Inhibitor Start: 03-25-2021 lisinopril (ZESTRIL, PRINIVIL) 20 mg tablet q 24 HR. 0 03/25/2021 Active Start: 03-25-2021 End: 06-04-2023 take 1 tablet by mouth once daily lisinopril 20 mg tablet Take 1 tablet (20 mg) by mouth once daily. 0 12/03/2022 06/04/2023 Discontinued (Other) Comment on above: q 24 HR. pregabalin 75 mg oral capsule (20 sources) Start: 01-08-2023 take 1 capsule by mouth once daily at bedtime pregabalin (LYRICA) 75 mg capsule Take 1 capsule by mouth once daily. At bedtime. 0 01/08/2023 Active Start: 11-22-2021 End: 05-19-2023 take 50 mg by mouth twice daily Pregabalin Discontinue d 50 MG PO Twice daily November 21, 2021 11:00pm February 06, 2023 10:58am Start: 11-04-2021 take 1 capsule by mo ut twice daily Lyrica 25 mg Cap 25 mg = 1 cap(s), Oral, BID, # 60 cap(s), Refills(s) 0 Start Date: 11/04/21 Status: Ordered Comment on above: Take 50 mg by mouth twice daily. Take 1 capsule by mo uth once daily. At bedtime. Take 50 mg by mouth two times a day. regadenoson (Lexiscan) injection 0.4 mg (2 sources) Start: 06-18-2023 End: 06-18-2023 regadenoson (Lexiscan) injection 0.4 mg terazosin 10 mg oral capsule (20 sources) alpha-Adrenergic Miroslava Start: 10-04-2021 Terazosin HCl (HYTRIN) 10 mg capsule Start: 03-22-2021 take 1 mg by mouth o nce daily at bedtime terazosin 2 mg Cap mg cap(s), Oral, Once a day (at bedtime), Refills(s) 0 Start Date: 03/22/21 Status: Ordered Problems Active Problems Problem Classification Problem Date Documented Date Episodic/Chronic Abdominal hernia (9 sources) Umbilical hernia; Translations: [Umbilical hernia without obstruction or gangrene] Onset: 06-04-1903-25-2021 Episodic Acute cerebrovascular disease (3 sources) Cerebrovascular accident; Translations: [Cerebral infarction, unspecified] Onset: 06-04-1906-04-2023 Chronic Anxiety disorders (9 sources) Anxiety; Translations: [Anxiety disorder, unspecified] Onset: 06-04-1903-22-2021 Chronic Cancer of prostate (20 sources) Malignant neoplasm of prostate; Translations: [Malignant tumor of prostate] Onset: 11-05-19 Chronic Cancer of prostate (4 sources) History of malignant neoplasm of prostate; Translations: [Personal history of malignant neoplasm of prostate] Onset: 04-27-20 Episodic Cardiac dysrhythmias (3 sources) Bradycardia; Translations: [Bradycardia, unspecified] Onset: 04-27-2006-04-2023 Episodic Chronic kidney disease (19 sources) Chronic kidney disease stage 3; Translations: [Stage 3 chronic kidney disease] Onset: 11-20-19 23 11-19-2022 Chronic Chronic kidney disease (6 sources) Chronic kidney disease; Translations: [Chronic kidney disease, stage III (moderate)] Onset: 10-25-19 Resolved : 10-25-19 Coronary atherosclerosis and other heart disease (3 sources) History of myocardial infarction; Translations: [Old myocardial infarction] Onset: 06-04-19 24 06-04-2023 Chronic Coronary atherosclerosis and other heart disease (2 sources) Coronary atherosclerosis and other heart disease; Translations: [Atherosclerosis of [place] arteries of extremities with intermittent claudication, bilateral legs] Onset: 03-23-20 Disorders of lipid metabolism (20 sources) Hyperlipidemia; Translations: [Dyslipidemia] Onset: 10-25-19 Resolved : 10-25-1903-22-2021 Chronic Essential hypertension (15 sources) Hypertensive disorder; Translations: [Essential (primary) hypertension] Onset: 01-10-2003-22-2021 Chronic Genitourinary symptoms and ill-defined conditions (20 sources) Nocturia; Translations: [Nocturia] Onset: 11-05-19 Episodic Hyperplasia of prostate (20 sources) Benign prostatic hypertrophy with outflow obstruction; Translations: [Benign prostatic hyperplasia with lower urinary tract symptoms] Onset: 11-05-19 Chronic Hypertension with complications and secondary hypertension (11 sources) Chronic kidney disease due to hypertension; Translations: [Hypertensive chronic kidney disease with stage 1 through stage 4 chronic kidney disease, or unspecified chronic kidney disease] Onset: 10-25-19 Resolved : 10-25-19 Chronic Inflammatory conditions of male genital organs (9 sources) Chronic prostatitis; Translations: [Chronic prostatitis] Onset: 06-04-1905-13-2021 Chronic Inflammatory conditions of male genital organs (6 sources) Prostatitis 03-25-2021 Episodic Nephritis; nephrosis; renal sclerosis (3 sources) 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; Translations: [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] Onset: 06-04-1906-04-2023 Chronic Nonspecific chest pain (8 sources) Chest discomfort; Translations: [Other chest pain] Onset: 06-04-1906-04-2023 Episodic Other acquired deformities (1 source) Lumbar spondylolisthesis; Translations: [Spondylolisthesis, lumbar region] 06-12-2023 Episodic Other acquired deformities (1 source) Spondylolisthesis, lumbar region; Translations: [Spondylolisthesis of lumbar region] Onset: 06-12-19 Episodic Other aftercare (1 source) Encounter for surgical aftercare following surgery on the circulatory system Episodic Other and ill-defined heart disease (9 sources) Heart disease; Translations: [Heart disease, unspecified] Onset: 06-04-1903-22-2021 Chronic Other circulatory disease (4 sources) Disorder of carotid artery; Translations: [Disorder of arteries and arterioles, unspecified] Onset: 06-04-1906-04-2023 Chronic Other circulatory disease (4 sources) Disorder of arteries and arterioles, unspecified; Translations: [Disorder of arteries and arterioles, unspecified (CMS/HCC)] Onset: 06-04-19 Chronic Other diseases of kidney and ureters (4 sources) Secondary hyperparathyroidism; Translations: [Secondary hyperparathyroidism of renal origin] Chronic Other diseases of kidney and ureters (4 sources) Secondary hyperparathyroidism of renal origin; Translations: [SEC HYPERPARATHYROIDISM RENAL ORIGN] Onset: 10-25-19 Resolved : 10-25-19 Chronic Other diseases of kidney and ureters (1 source) Urinary tract obstruction; Translations: [Other obstructive and reflux uropathy] Onset: 11-05-19 Episodic Other diseases of kidney and ureters (9 sources) Kidney disease; Translations: [Disorder of kidney and ureter, unspecified] Onset: 06-04-1903-22-2021 Episodic Other male genital disorders (6 sources) Male erectile dysfunction, unspecified; Translations: [Erectile dysfunction] Onset: 04-21-20 Chronic Other nervous system disorders (9 sources) Chronic pain syndrome; Translations: [Chronic pain syndrome] Onset: 06-04-1903-22-2021 Chronic Other nervous system disorders (1 source) Other chronic pain; Translations: [OTHER CHRONIC PAIN] Onset: 02-15-20 Chronic Peripheral and visceral atherosclerosis (16 sources) Peripheral vascular disease, unspecified; Translations: [Peripheral vascular disease, unspecified] Onset: 06-04-1902-16-2023 Chronic Residual codes; unclassified (1 source) Other specified postprocedural states Episodic Residual codes; unclassified (1 source) Family history of ischemic heart disease and other diseases of the circulatory system Episodic Spondylosis; intervertebral disc disorders; other back problems (12 sources) Spondylosis without myelopathy or radiculopathy, lumbar region; Translations: [Other intervertebral disc degeneration, lumbar region] Onset: 01-24-20 Chronic Spondylosis; intervertebral disc disorders; other back problems (9 sources) Spinal stenosis, lumbar region without neurogenic claudication; Translations: [Intervertebral disc disorders with radiculopathy, lumbar region] Onset: 01-25-20 Episodic Substance-related disorders (12 sources) Smoker; Translations: [Nicotine dependence, unspecified, uncomplicated] Onset: 06-04-1903-22-2021 Chronic Comment on above: Added secondary to d ocumentation in Social History. Unclassified (6 sources) Finding of sensation of bladder 03-25-2021 Unclassified (4 sources) LOW BACK PAIN, UNSPECIFIED; Translations: [LOW BACK PAIN, UNSPECIFIED] Onset: 12-14-19 Unclassified (1 source) CONTACT W/AND (SUSP) EXPOS COVID-19; Translations: [CONTACT W/AND (SUSP) EXPOS COVID-19] Onset: 02-10-20 22 Unclassified (1 source) CHRN KIDNEY DISEASE STG 3 UNSP; Translations: [CHRN KIDNEY DISEASE STG 3 UNSP] Onset: 02-01-20 22 Unclassified (1 source) Bradycardia, unspecified; Translations: [Bradycardia, unspecified] Onset: 05-21-20 23 Unclassified (1 source) Occlusion and stenosis of bilateral carotid arteries; Translations: [Occlusion and stenosis of bilateral carotid arteries] Onset: 03-04-20 23 Unclassified (1 source) Spinal stenosis, lumbar region without neurogenic claudication; Translations: [Spinal stenosis, lumbar region without neurogenic claudication] Onset: 02-21-20 23 Urinary tract infections (12 sources) Urinary tract infectious disease; Translations: [Urinary tract infection, site not specified] Onset: 10-29-19 Episodic Past or Other Problems Problem Classification Problem Date Documented Da te Episodic/Chronic Other connective tissue disease (4 sources) Other muscle spasm; Translations: [OTHER MUSCLE SPASM] Onset: 03-13-2022 Episodic Unclassified (1 source) LOW BACK PAIN, UNSPECIFIED; Translations: [LOW BACK PAIN, UNSPECIFIED] Onset: 12-12-2021 Unclassified (3 sources) Onset: 06-04-2023 06-04-2023 Results Test Name Value Interpretation Reference Range Facility C Urineon 07-11-2023 Bacteria identified Cx Nom (U) Microbiology PROCEDURE: Urine Culture [R1] SOURCE: U Random BODY SITE: COLLECTED DATE/TIME: 07/07/2023 09:50 EST RECEIVED DATE/TIME: 07/07/2023 19:09 EST START DATE/TIME: 07/07/2023 19:09 EST FREE TEXT SOURCE: CLAIRE JAMES PA-C, PA-C, JENNIFER E FINAL REPORTS Final Report [] Verified Date/Time: 07/11/2023 11:11 EST 25,000 cfu/ml Staphylococcus aureus SUSCEPTIBILITY RESULTS _ LEGEND: S=Susceptible, N/R=Not Reported, Blank=Data not available, or drug not advisable or tested, I=Intermediate, ESBL=Extended spectrum beta-lactamase, R=Resistant, TFG=Thymidine-dependent strain, CATRINA=Beta-lactamase positive, ROSLYN=mcg/m;(mg/L), S*=Predicted susceptible interp, R*=Predicted resistant interp SA Antibiotic ROSLYN Dilutn ROSLYN Interp Amoxicillin/ <=4/2 S Clavulanate Ampicillin <=2 CATRINA Ampicillin/ <=8/4 S Sulbactam Cefazolin <=8 S Ceftaroline <=0.5 S Ciprofloxacin 2 I Daptomycin <=1 S Gentamicin <=4 S Levofloxacin <=1 S Linezolid <=2 S Nitrofurantoin <=32 S Oxacillin <=0.25 S Penicillin 0.12 CATRINA Rifampin <=1 S Tetracycline <=4 S Trimethoprim/ <=0.5/9.5 S Sulfa Vancomycin 1 S Performing Locations R1: This test was performed at: [facility], [address] [place] [address], [id number] , , [facility] Comment on above: Performed By: #### 2 [id number] ####[id number] [place] [address] Consultation Noteon 07-08-19 24 Consultation Note [id number] Normal [facility] Lab Reportson 07-08-2023 Lab Reports [id number] Normal [facility] Patient Educationon 07-07-19 24 Patient Education Urology Urinary Frequency, Adult Urinary frequency means urinating more often than usual. You may urinate every 1?2 hours even though you drink a normal amount of fluid and do not have a bladder infection or condition. Although you urinate more often than normal, the total amount of urine produced in a day is normal. With urinary frequency, you may have an urgent need to urinate often. The stress and anxiety of needing to find a bathroom quickly can make this urge worse. This condition may go away on its own, or you may need treatment at home. Home treatment may include bladder training, exercises, taking medicines, or making changes to your diet. Follow these instructions at home: Bladder health Your health care provider will tell you what to do to improve bladder health. You may be told to: ? Keep a bladder diary. Keep track of: ? What you eat and drink. ? How often you urinate. ? How much you urinate. ? Follow a bladder training program. This may include: ? Learning to delay going to the bathroom. ? Double urinating, also called voiding. This helps if you are not completely emptying your bladder. ? Scheduled voiding. ? Do Kegel exercises. Kegel exercises strengthen the muscles that help control urination, which may help the condition. Eating and drinking Follow instructions from your health care provider about eating or drinking restrictions. You may be told to: ? Avoid caffeine. ? Drink fewer fluids, especially alcohol. ? Avoid drinking in the evening. ? Avoid foods or drinks that may irritate the bladder. These include coffee, tea, soda, artificial sweeteners, citrus, tomato-based foods, and chocolate. ? Eat foods that help prevent or treat constipation. Constipation can make urinary frequency worse. You may need to take these actions to prevent or treat constipation: ? Drink enough fluid to keep your urine pale yellow. ? Take faqi-vic-zjlrvpr or prescription medicines. ? Eat foods that are high in fiber, such as beans, whole grains, and fresh fruits and vegetables. ? Limit foods that are high in fat and processed sugars, such as fried or sweet foods. General instructions ? Take tcqd-ate-qgtkoww and prescription medicines only as told by your health care provider. ? Keep all follow-up visits. This is important. Contact a health care provider if: ? You start urinating more often. ? You feel pain or irritation when you urinate. ? You notice blood in your urine. ? Your urine looks cloudy. ? You develop a fever. ? You begin vomiting. Get help right away if: ? You are unable to urinate. Summary ? Urinary frequency means urinating more often than usual. With urinary frequency, you may urinate every 1?2 hours even though you drink a normal amount of fluid and do not have a bladder infection or other bladder condition. ? Your health care provider may recommend that you keep a bladder diary, follow a bladder training program, or make dietary changes. ? If told by your health care provider, do Kegel exercises to strengthen the muscles that help control urination. ? Take krwy-dzh-jxpgfbc and prescription medicines only as told by your health care provider. ? Contact a health care provider if your symptoms do not improve or get worse. This information is not intended to replace advice given to you by your health care provider. Make sure you discuss any questions you have with your health care provider. Document Revised: 12/21/2020 Document Reviewed: 12/21/2020 [employer]acking Patient Education ? 2022 [employer]. [facility] Urology Office/Clinic Noteon 07-07-2023 Urology Office/Clinic Note Chief Complaint 2 month F/U HPI Staff PRW pt 2m to stopping Oxybutynin & beginning Desmopressin 0.05mg qhs for Nocturia. Additional DX: UTI Sx, ED, Prostate Cancer & BPH. Pt was also started on Sildenafil 50mg PRN for ED. S/P TRUS/BX done 04/23/21, TURP done 06/06/21, prostate MRI 11/26/21 and EBRT 03/18/22-04/23/22. PSA 0.43 done 05/12/23, Dr. Nazario checking PSA. Pt. last seen Dr. Nazario 05/20/23. Pt. states Sildenafil is not working. C&S at time of last encounter *15k Staphylococcus aureus Tx'd w/Keflex Electrolytes 05/04/23 Na WNL so desmopressin was increased to 0.1mg qhs Repeat electrolytes 05/19/23 (Na still WNL) Dysuria: Pt. states having some discomfort with urination Incomplete bladder emptying: no Hematuria: UA shows trace today Frequency: every 3 hours Urgency: yes Nocturia: 4-5x's Stream: good stream Post void dripping: no Wearing pads/ Depends: no Urge incontinence: very rarely Stress incontinence: no Incontinence without Sensory Awareness: no Abdominal pain: no Flank pain: occasionally flank pain, Pt. not sure if the pain is from his kidneys or just back pain. History of Present Illness staff HPI reviewed and agree. Review of Systems PHQ Score Initial Depression Screen Score: 0 SCORE no fever, chills, malaise, myalgia. no rash/lesions. no chest pain, palpitations, or SOB. no abdominal pain, nausea, vomiting. no unilateral calf swelling, redness, pain Physical Exam Vitals & Measurements HT: 70 in HT: 178 cm WT: 92 kg WT: 202.4 lb BMI: 29.04 General: nontoxic, NAD Mouth: moist mucosa Lungs: normal respiratory effort Cardio: regular rate, good distal perfusion Abdomen: nondistended, no suprapubic distention or tenderness, no CVA tenderness Neurologic: Grossly normal Skin: No rashes or suspicious lesions Assessment/Plan PRW pt 03/23/23 - BUN 35, Cr 2.03, eGFR 33.144 1. Nocturia (R35.1: Nocturia) PVR (cc): 04/21/23 - 17 S/p TURP 06/06/21. Had initial sx improvement but did not last. Hx of EBRT. No current sleep apnea sx, but does report hx snoring/waking gasping for air a few yrs ago but reports this has stopped. Avoids bladder irritants prior to bedtime. Stops fluids at 7-8pm. Denies leg edema during the day. Failed Terazosin and Oxybutynin. Pt was started on DDAVP 0.05mg qhs last visit. Na 139 (wnl) drawn 05/19/23 so DDAVP was increased to 0.1mg qhs. Repeat NA 05/19/23 wnl. Pt states he thinks he noticed improvement when he first starting taking med for maybe a few days. No longer noticing improvement. Pt states he has been limiting fluids prior to bedtime. Stops coffee late afternoon, has a small glass of juice w dinner and a small glass of water w meds before bed. States he is not getting any sleep. Still getting up 5x per night. Low volume voids. -D/c DDAVP -Begin Detrol IR 2mg, 2 tabs qhs, sent to pharm on file -Follow up with Dr. Johnston in 3 months. 2. Erectile dysfunction (N52.9: Male erectile dysfunction, unspecified) KAILYN 1 which is unchanged. States sxs have worsened over the last few years. Has tried Viagra in the past but d/c due to expense. Denies hx of MIs. Not on Nitro. Pt has not been told he isn't healthy enough for exercise/sex. Pt was started on Sildenafil 50mg prn last visit. Reports he tried 1 tab without improvement then another time tried 2 tabs (100mg) without improvement. Discussed alternative oral ED meds such as Cialis. Wishes to try. -D/c Sildenafil -Begin Cialis 20mg prn, sent to pharm on file -Do not exceed 20mg within 48 hours 3. History of prostate cancer (Z85.46: Personal history of malignant neoplasm of prostate) PSA: 04/17/21 - 9.95 11/04/21 - 3.73 05/09/22 - 2.81 11/17/22 - 0.50 05/11/23 - 0.43 Neg TRUS/bx done 04/23/21 due to hard nodule at R base to mid. S/p TURP 06/06/21 - G7 (3+4), GG2. Prostate MRI 11/26/21 - suggestive of developing extraprostatic extension EBRT 03/18/22 - 04/23/22. Last saw Dr. Nazario 05/2023 and continues to follow with rad onc every 6 months. 4. BPH with urinary obstruction (N40.1: Benign prostatic hyperplasia with lower urinary tract symptoms) S/p TURP 06/06/21. IPSS 14. Not currently taking any prostate meds. See #1. 5. History of UTI (Z87.440: Personal history of urinary (tract) infections) UCx: Mar 2023 - 100k staph tx'd by nephro w amox Apr 2023 - 15k Staphylococcus aureus, tx'd w/Keflex UA today shows trace blood and small leuks. States his urine is foul smelling and dark colored. Will send for culture due to pt being concerned of a UTI. However I'm not convinced this is contributing to his sx as he's had 2 rounds of abx w/o sx change. Follow-up With When Contact Information [facility], Barbara Warner, [address] [place] [address]- Additional Instructions: 3 mos Patient Education Urinary Frequency, Adult Documentation recorded by the scribe Tabitha Saenz accurately reflects the services(s) I performed and decisions made (more content not included)... Normal [facility] Comment on above: Result Comment: Elec tronically Signed By: CLAIRE JAMES PA-C\.br\Date and Time Signed: 07/07/23 10:08 EST\.br\Electronically Co-Signed By: Tabitha Saenz\.br\Date and Time Co-Signed: 07/07/23 09:50 EST NUCLEAR STRESS TESTon 2023 NUCLEAR STRESS TEST Interpreted By: Inge Dickerson and Beal Gina STUDY: MYOCARDIAL PERFUSION STRESS TEST WITH LEXISCAN Performing facility: [facility], [address] [place] [address], [address], [address] Provider: Sylvester Grayson DO, [facility] PCP: Dr. Agus STORM Supervising provider: Inge Dickerson MD INDICATION: HTN, Bilateral Carotid, Chest Pain HISTORY: Gender: M; Age: 77 y/o ; Height: HT 177.8 cm cm; Weight: WT 89.812 kg kg. CAD; High Cholesterol; Abnormal EKG; RBBB Previous OK; Family HX CAD; Chest Pain; COPD; PAD, CVA, Carotid Disease, CKD Currently smoking. Cardiac catheterization. PTCA 1990s RCA. COMPARISON: No comparison. ACCESSION NUMBER(S): [id number] ORDERING CLINICIAN: CHAIM GRAYSON TECHNIQUE: ONE DAY protocol. Stress injection: Date:06/18/23, 33.1 mCi of Myoview IV 20 seconds after rapid injection of Lexiscan. Rest injection: Date: 06/18/23, 10 mCi of Myoview IV at rest. The patient had a rapid injection of 0.4 mg of Lexiscan IV over 10 seconds. Imaging was performed by gated tomographic technique. Reason for Lexiscan: PVD? STRESS TEST DATA: Resting heart rate was 86 BPM. Resting blood pressure was 154/94 mmHg. Peak blood pressure was 144/82 mmHg. Peak heart rate was 111 BPM. TEST TERMINATED DUE TO: Protocol completed FINDINGS: STRESS TEST RESULTS: Resting electrocardiogram revealed normal sinus rhythm. There were no significant ischemic ECG changes or dysrhythmias. The patient did not have chest pains/symptoms during procedure. There was a normal recovery phase. IMAGING RESULTS: Image quality was good. Rest and stress tomographic images were reviewed and revealed normal perfusion without evidence of ischemia, myocardial infarction, or left ventricular dilatation with stress. Overall left ventricular systolic function appeared to be normal without regional wall motion abnormalities. Ejection fraction was 58%. TID is 1.01 and is normal. There were no evidence of attenuation artifact. IMPRESSION: Normal Lexiscan Myoview cardiac perfusion stress test. No evidence of ischemia or myocardial infarction by perfusion imaging. Normal left ventricular systolic function, ejection fraction 58%. No previous study available for comparison. Signed by: Inge Dickerson 06/19/2023 11:20 AM Dictation workstation: [id number] [facility] CNOVon 06-12-2023 CNOV Office Visit (SPSLUH ) -- YESENIA BROUSSARD ([id number]) 1945 M Date Time Provider Department 06/12/23 11:00 AM KODI REYNOLDS SPSLU During your visit today, we recorded the following information about you: Weight Height 88.9 kg 1.778 m eBrt Alvarado 06/14/2023 4:36 PM Signed Pt has been identified by name and birthdate: Yes Allergies reviewed: Yes Medication - prescribed and OTC reviewed and updated: Yes Latex allergy: no. Have you had a recent problem with pain? Yes LOCATION: Lower back Pain/ Bilateral hip PAIN SCALE: 6 on a scale of 0-10 PAIN CHARACTER: pressure DURATION: (How long have you had the pain?) 10 years FREQUENCY: (How often does the pain occur?) occurs constantly AGGRAVATING FACTORS: activity, standing, walking, and mornings ALLEVIATING FACTORS: resting and application of heat Medications: See medication reconciliation list in [facility] MEDICATIONS: Hydrocodone, Gabapentin 2017 back surgery with a 50-70% relieve PT done 2021 How is your appetite?: normal Do you feel safe in the home? Yes Do you have concerns about falling or have you fallen in the past year? No Do you have difficulty performing or completing routine daily living activities? No Kodi Desai MD 06/14/2023 4:36 PM Signed SPINE SURGERY NEW PATIENT This is an in-person visit. PCP: Shaikh Dotty MD REFERRING PROVIDER: Gerber ALBA SUBJECTIVE HISTORY OF PRESENT ILLNESS: Yesenia Broussard is a 77 year old male presenting with spouse. CHIEF COMPLAINT: Back and leg pain, no radicular leg pain, inability to ambulate far distances PRECIPITATING EVENT: None DURATION OF SYMPTOMS: Greater Than 1 Year Is a very pleasant 77-year-old male who recently moved from [place] to [place]. He reports longstanding history of back and leg pain. He currently is smoking multiple packs per day, he is on narcotics 3 times a day per pain management. He was evaluated via video visit by an outside hospital surgeon and offered an anterior lumbar interbody fusion followed by posterior instrumentation. He presents today for my surgical opinion. Of note patient did have a prior L4-5 decompression in 2018. He reports an inability to ambulate far distances before he needs to stop and sit down. He reports that he was diagnosed with vascular claudication and recently underwent femoral bypass with significant improvement in his bilateral lower extremity sensation and heaviness with ambulation. At today's encounter he currently denies any significant left leg pain at rest, with prolonged ambulation he continues to report bilateral gluteal heaviness. Back and leg pain, Back pain > leg pain, R>L DERMATOMAL DISTRIBUTION: L4, L5 AMBULATORY STATUS: Independent Community Distances ANTIPLATELET OR ANTICOAGULATION STATUS: No PREVIOUS CONSERVATIVE TREATMENTS: Nsaids Narcotics PT HEP PREVIOUS SPINAL SURGERY: L4/5 decompression, 2018 ACTIVE PROBLEM LIST Prostate Cancer (Hcc) Stage 3 Chronic Kidney Disease (Hcc) PAST MEDICAL HISTORY Diagnosis Date Claustrophobia HTN (hypertension) Hypercholesterolemia PAST SURGICAL HISTORY Procedure Laterality Date CAROTID ENDARTERECTOMY CC CORONARY STENT PAST SURGICAL HISTORY OF diverticulitis-colon resection PAST SURGICAL HISTORY OF L5 decompression REPAIR OF SHOULDER Bilateral TRANSURETHRAL ELEC-SURG PROSTATECTOM FAMILY HISTORY Problem Relation Age of Onset Ovarian cancer Sister Social History Tobacco Use Smoking status: Every Day Packs/day: 1.00 Years: 60.00 Additional pack years: 0.00 Total pack years: 60.00 Types: Cigarettes Smokeless tobacco: Never Tobacco comments: 2 ppd x 20 yrs, 1 ppd x 40 yrs Substance Use Topics Alcohol use: Not Currently Drug use: Never ALLERGIES No Known Allergies MEDICATIONS: ergocalciferol, vitamin D2, (VITAMIN D2 ORAL) Take by mouth. pregabalin (LYRICA) 75 mg capsule Take 1 capsule by mouth once daily. At bedtime. Terazosin HCl (HYTRIN) 10 mg capsule aspirin 81 mg cap Take by mouth. pravastatin (PRAVACHOL) 10 mg tablet pravastatin 10 mg tablet atenolol (TENORMIN) 50 mg tablet atenolol 50 mg tablet (Patient not taking: Reported on 05/19/2023) lisinopril (ZESTRIL, PRINIVIL) 20 mg tablet q 24 HR. HYDROcodone-acetaminophen (NORCO) 5-325 mg per tablet amLODIPine (NORVASC) 10 mg tablet amlodipine 10 mg tablet baclofen (LIORESAL) 10 mg tablet baclofen 10 mg tablet REVIEW OF SYSTEMS: All are negative except those stated in the History of Present illness. Patient Entered Questionnaires Spine Questions 01/17/2023 06/10/2023 Pain Location: Lower back Lower back Pain Duration: More than 5 years - Pain over last 6 months: Every day or nearly every day in the past 6 months - Symptoms from neck/cervical spine: No Yes Employment Status: Retired Retired Involved in law suit/legal clai (more content not included)... Normal [facility] Alanine Aminotransferaseon 0 06-10-2023 ALT [Catalytic activity/Vol] 15 U/L Normal 7-52 [facility] Comment on above: Performed By: #### L IPID, AST, BMP, ALT ####[id number] [facility] Aspartate Amino Transferaseo n 06-10-2023 AST [Catalytic activity/Vol] 15 U/L Normal 13-39 [facility] Comment on above: Performed By: #### L IPID, AST, BMP, ALT ####[address] Basic Metabolic Panelon 06-01 Anion gap [Moles/Vol] 11.2 mmol/L Normal 6.0-15.0 [facility] Comment on above: Performed By: #### L IPID, AST, BMP, ALT ####[address] Calcium [Mass/Vol] 9.3 mg/dL Normal 8.6-10.3 [facility] Comment on above: Performed By: #### L IPID, AST, BMP, ALT ####[address] Chloride [Moles/Vol] 108 mmol/L High 98-107 [facility] Comment on above: Performed By: #### L IPID, AST, BMP, ALT ####[address] CO2 [Moles/Vol] 25.4 mmol/L Normal 21.0-31.0 [facility] Comment on above: Performed By: #### L IPID, AST, BMP, ALT ####[address] Creatinine [Mass/Vol] 1.58 mg/dL High 0.70-1.30 [facility] Comment on above: Performed By: #### L IPID, AST, BMP, ALT ####[address] GFR/1.73 sq M.predicted MDRD (S/P/Bld) [Vol rate/Area] 44.772 mL/min/{1.73_m2} [facility] Comment on above: Performed By: #### L IPID, AST, BMP, ALT ####[address] [place] [address] [facility] Glucose [Mass/Vol] 109 mg/dL High 70-100 [facility] Comment on above: Result Comment: [facility] Glucose Reference Range is dependent on time and content of last meal. Glucose of more than 200 mg/dL in a nonstressed, ambulatory subject supports the diagnosis of Diabetes Mellitus. ADA recommended reference range Performed By: #### L IPID, AST, BMP, ALT ####[address] [place] [address] [facility] Potassium [Moles/Vol] 4.6 mmol/L Normal 3.5-5.1 [facility] Comment on above: Performed By: #### L IPID, AST, BMP, ALT ####[address] [address] [facility] Sodium [Moles/Vol] 140 mmol/L Normal 136-145 [facility] Comment on above: Performed By: #### L IPID, AST, BMP, ALT ####[address] [address] [facility] Urea nitrogen [Mass/Vol] 23 mg/dL Normal 7-25 [facility] Comment on above: Performed By: #### L IPID, AST, BMP, ALT ####[address] [address] [facility] Lipid Panelon 06-10-2023 Cholesterol [Mass/Vol] 139 mg/dL Low 140-200 [facility] Comment on above: Result Comment: Chol less than 200 mg/dl low risk Chol 201-239 mg/dl borderline risk Chol 240 mg/dl and greater high risk Performed By: #### L IPID, AST, BMP, ALT ####[id number] [facility] Cholesterol in HDL [Mass/Vol] 36 mg/dL Normal 23-92 [facility] Comment on above: Result Comment: HDL CHOL ATP-III CLASSIFICATION Cardiovascular Risk HDL > or equal to 60 mg/dL LOW HDL < 40 mg/dL HIGH Performed By: #### L IPID, AST, BMP, ALT ####[id number] [facility] Cholesterol.total/Chol esterol in HDL [Mass ratio] 3.9 {ratio} Normal <5.0 [facility] Comment on above: Result Comment: PERF ORMED BY: [facility] [address] [place] [address] PATHOLOGIST WIG COMBER ANA HURT M.D. Performed By: #### L IPID, AST, BMP, ALT ####[address] [id number] [facility] LDL Cholesterol,Calculated 76 mg/dL Normal 0-100 [facility] Comment on above: Result Comment: LDL ATP III CLASSIFICATION LDL less than 100 mg/dL Optimal LDL 100-129 mg/dL Near or above optimal LDL 130-159 mg/dL Borderline high LDL 160-189 mg/dL High LDL greater than 189 mg/dL Very high Performed By: #### L IPID, AST, BMP, ALT ####[id number] [facility] Triglyceride w/Reflex 134 mg/dL Normal 0-149 [facility] Comment on above: Result Comment: TRIG ATP III CLASSIFICATION TRIG less than 150 mg/dL Normal TRIG 150-199 mg/dL Borderline high TRIG 200-500 mg/dL High TRIG greater than 500 mg/dL Very high Standard traceable to the Center for Disease Conrtrol and Prevention (CDC) test method. Performed By: #### L IPID, AST, BMP, ALT ####[address] [id number] [facility] VLDL CHOLESTEROL 26 mg/dL Normal [facility] Comment on above: Performed By: #### L IPID, AST, BMP, ALT ####[address] [id number] [facility] ECG 12 Leadon 06-04-2023 Sinus rhythm, right bundle branch block, left axis deviation, abnormal ECG [facility] Work Phone: Lab Reportson 05-26-2023 Lab Reports [id number] Normal [facility] ECG 12 lead ECGon 05-21-2023 ECG 12 lead ECG [facility] [place] [address] Electrocardiograph Report Signed Patient: Yesenia Broussard MR#: [id number] : 1945 Acct:[id number] Age/Sex: 77 / M ADM Date: 05/21/23 Loc: Room: Type: [facility] Attending Dr: Shaikh Dotty MAK Ordering Provider: Shaikh Dotty MD Date of Service: 05/21/23/ ECG/ECG 12 lead ECG: see order Copies to: Test Reason : Blood Pressure : / mmHG Vent. Rate : 081 BPM Atrial Rate : 081 BPM P-R Int : 148 ms QRS Dur : 138 ms QT Int : 378 ms P-R-T Axes : 042 -62 055 degrees QTc Int : 439 ms Normal sinus rhythm Right bundle branch block Left anterior fascicular block Bifascicular block Septal infarct , age undetermined Abnormal ECG Confirmed by DEANN MAK [id number] on 05/21/2023 5:04:18 PM Referred By: Electronically Signed By:BARBARA CASTELLANOS MD [facility] Transcribed By: MUS Signed By Chaim Castellanos MD 05/21/23 1704 [facility] 05-20-2023 STEPH Telephone (HEMASA) -- YESENIA BROUSSARD ([id number]) 1945 M Date Time Provider Department 05/20/23 CONSTANCE DURAND During your visit today, we recorded the following information about you: Constance Durand LSW 05/20/2023 3:13 PM Signed Patient Declined Social Work Assessment SOCIAL WORK FOLLOW UP NOTE: [facility] Date of service:05/20/23 TOPICS ADDRESSED: [employer] report PLAN: Continue follow up as needed F/U APPOINTMENT: PRN Assigned SW listed in Care Team tab: Yes Patient appears on the [employer] PRO report for a PHQ-9 score of 11. Questionnaire was completed on 05/19/23. SW called and spoke with the Patient's Nena on the phone. Nena reports that the Patient has persistent pain that contributes to his depressive mood. Nena denied that the Patient is experiencing any SI/HI. Nena is hopeful that the spine physician Dr. Nichols will help to address the ongoing pain. SW encouraged Nena to have the Patient reach out if additional psychosocial support is needed. SW will remain available and will follow up as appropriate. ASHER Lange-S Allergies As of Date: 05/20/2023 (No Known Allergies) Date Reviewed: 05/19/2023 Reviewed by: Diane Parada LPN - Fully Assessed Prescriptions as of 05/20/2023 - ergocalciferol, vitamin D2, (VITAMIN D2 ORAL) Take by mouth. - pregabalin (LYRICA) 75 mg capsule Take 1 capsule by mouth once daily. At bedtime. - Terazosin HCl (HYTRIN) 10 mg capsule - aspirin 81 mg cap Take by mouth. - pravastatin (PRAVACHOL) 10 mg tablet pravastatin 10 mg tablet - atenolol (TENORMIN) 50 mg tablet atenolol 50 mg tablet - lisinopril (ZESTRIL, PRINIVIL) 20 mg tablet q 24 HR. - HYDROcodone-acetaminophen (NORCO) 5-325 mg per tablet - amLODIPine (NORVASC) 10 mg tablet amlodipine 10 mg tablet - baclofen (LIORESAL) 10 mg tablet baclofen 10 mg tablet Problem List As Of Date 05/20/2023 Noted Resolved Prostate cancer (HCC) [C61] 11/18/2022 Stage 3 chronic kidney disease (HCC) [N18.30] 11/19/2022 Encounter Status:Closed by CONSTANCE DURAND on 05/20/23 [facility] CNOVon 05-19-2023 CNOV Office Visit (RADTSA ) -- YESENIA BROUSSARD ([id number]) 1945 M Date Time Provider Department 05/19/23 1:45 PM Hyun NAZARIO During your visit today, we recorded the following information about you: Temperature Pulse Respiration Blood pressure 98.4 degrees 83/minute 16/minute 135/78 Weight 89.9 kg Diane Parada LPN 05/28/2023 3:05 PM Signed AUA= 12 Hyun Nazario MD 05/28/2023 3:05 PM Signed Radiation Oncology - Follow Up Note PATIENT NAME: Yesenia Broussard PATIENT DIAGNOSIS: Prostate adenocarcinoma, initial PSA 9.95, biopsy [place] score 3 + 4 = 7 (grade group 2), clinical stage T1b, N0, M0, stage IIB [T1-T2, N0, M0, PSA <20, GG 2] (AJCC 8th ed.), s/p TURP. Prostate cancer (C61), 2019 NCCN Risk Group: Unfavorable Intermediate Risk Group RADIATION SUMMARY: DATES OF TREATMENT: 03/18/2022- 04/23/2022 AREA TREATED: Pelvis and Prostate DELIVERED DOSE: Area: pelvis/ prostate 7000 cGy in 28 fractions, 2 Arcs, IMRT, 10 MV with daily CBCT TOTAL: 7000 cGy in 28 fractions ELAPSED TIME: 36 days. INTERVAL HISTORY: Doing well. Denies any new problems or concerns. Bladder function much improved. PSA HISTORY: PSA (ng/mL) Date Value 05/11/2023 0.43 11/17/2022 0.50 PSA. (no units) Date Value 05/09/2022 2.810 ALLERGIES No Known Allergies ergocalciferol, vitamin D2, (VITAMIN D2 ORAL) Take by mouth. pregabalin (LYRICA) 75 mg capsule Take 1 capsule by mouth once daily. At bedtime. HYDROcodone-Acetaminophen (NORCO) 7.5-325 mg per tablet TAKE 1 TABLET BY MOUTH THREE TIMES DAILY NEEDED MUST LAST 30 DAYS Terazosin HCl (HYTRIN) 10 mg capsule aspirin 81 mg cap Take by mouth. pravastatin (PRAVACHOL) 10 mg tablet pravastatin 10 mg tablet lisinopril (ZESTRIL, PRINIVIL) 20 mg tablet q 24 HR. HYDROcodone-acetaminophen (NORCO) 5-325 mg per tablet amLODIPine (NORVASC) 10 mg tablet amlodipine 10 mg tablet baclofen (LIORESAL) 10 mg tablet baclofen 10 mg tablet pregabalin (LYRICA) 50 mg capsule Take 50 mg by mouth two times a day. atenolol (TENORMIN) 50 mg tablet atenolol 50 mg tablet (Patient not taking: Reported on 05/19/2023) REVIEW OF SYSTEMS: D/N = 5-6/2-4 Hematuria: none Dysuria: none Incontinence: Yes Urgency: mild Catheter use: none Medications to aid urination: y - Total AUA Score: 12 Bowel movement frequency: 1/day Bowel movement quality: normal Blood per rectum: none PHYSICAL EXAM: BP 135/78 Pulse 83 Temp 36.9 ?C (98.4 ?F) Resp 16 Wt 89.9 kg (198 lb 3.1 oz) SpO2 97% BMI 29.06 kg/m? KPS: 90 General Appearance: Alert and oriented. No acute distress. Rectal exam is deferred. ASSESSMENT/PLAN: Prostate adenocarcinoma, initial PSA 9.95, biopsy [place] score 3 + 4 = 7 (grade group 2), clinical stage T1b, N0, M0, stage IIB [T1-T2, N0, M0, PSA <20, GG 2] (AJCC 8th ed.), s/p definitive radiation completed April 2022. 1. Prostate cancer. Patient is doing well with a durable PSA response. He has continued follow-up with urology. Otherwise plan to see patient back in 6 months repeat PSA. 2. Spinal stenosis, lumbar spine. Will help coordinate neurosurgical referral for patient. Signed by: Hyun Nazario MD cc: Shaikh Dotty [address] [place] [id number] Allergies As of Date: 05/19/2023 (No Known Allergies) Date Reviewed: 05/19/2023 Reviewed by: Diane Parada LPN - Fully Assessed Reason for Visit: Prostate Cancer [590] Primary Visit Diagnosis:History of prostate cancer [Z85.46] Other Visit Diagnoses:Back pain, unspecified back location, unspecified back pain laterality, unspecified chronicity [M54.9] Lumbar radiculopathy [M54.16] Order(s):PSA/PROSTSPECAG DIAG [SQPSA] Order #: [id number] FUTURE CONSULT TO NEUROSURGERY [19990607] Order #: [id number]: 1 FUTURE Prescriptions as of 05/28/2023 - ergocalciferol, vitamin D2, (VITAMIN D2 ORAL) Take by mouth. - pregabalin (LYRICA) 75 mg capsule Take 1 capsule by mouth once daily. At bedtime. - Terazosin HCl (HYTRIN) 10 mg capsule - aspirin 81 mg cap Take by mouth. - pravastatin (PRAVACHOL) 10 mg tablet pravastatin 10 mg tablet - atenolol (TENORMIN) 50 mg tablet atenolol 50 mg tablet - lisinopril (ZESTRIL, PRINIVIL) 20 mg tablet q 24 HR. - HYDROcodone-acetaminophen (NORCO) 5-325 mg per tablet - amLODIPine (NORVASC) 10 mg tablet amlodipine 10 mg tablet - baclofen (LIORESAL) 10 mg tablet baclofen 10 mg tablet Problem List As Of Date 05/19/2023 Noted Resolved Prostate cancer (HCC) [C61] 11/18/2022 Stage 3 chronic kidney disease (HCC) [N18.30] 11/19/2022 Visit Notes: >> Diane Parada LPN Tue May 19, 2023 1:44 PM Status: Signed AUA= 12 Medications Discontinued During This Encounter Prescriptions - pregabalin (LYRICA) 50 mg capsule (Discontinued) Take 50 mg by mouth two times a day. (more content not included)... Normal [facility] Rena 05-19-2023 STEPH Telephone ([facility]) -- YESENIA BROUSSARD ([id number]) 1945 M Date Time Provider Department 05/19/23 Hyun NAZARIO During your visit today, we recorded the following information about you: Criselda Castle 05/19/2023 2:11 PM Signed Neelam when order is signed can you please send records to Dr Marvin at [facility] thank you! Facesheet in your box Diane Parada LPN 05/20/2023 9:10 [address] Mrs[address] Broussard called stating they contacted one of Dexter's previous physicians at [facility] spine clinic and he will arrange for Dexter to see [facility] neurosurgeon. Please cancel the referral to [facility] neurosurgeon per patient request. MEHNAZ [facility] Center[facility] 05/20/2023 9:15 AM Signed Criselda- records were not sent, so we shouldn't have to call and cancel. Allergies As of Date: 05/19/2023 (No Known Allergies) Date Reviewed: 05/19/2023 Reviewed by: Diane Parada LPN - Fully Assessed Reason for Visit: Appointment Confirmation [0587] Prescriptions as of 05/20/2023 - ergocalciferol, vitamin D2, (VITAMIN D2 ORAL) Take by mouth. - pregabalin (LYRICA) 75 mg capsule Take 1 capsule by mouth once daily. At bedtime. - Terazosin HCl (HYTRIN) 10 mg capsule - aspirin 81 mg cap Take by mouth. - pravastatin (PRAVACHOL) 10 mg tablet pravastatin 10 mg tablet - atenolol (TENORMIN) 50 mg tablet atenolol 50 mg tablet - lisinopril (ZESTRIL, PRINIVIL) 20 mg tablet q 24 HR. - HYDROcodone-acetaminophen (NORCO) 5-325 mg per tablet - amLODIPine (NORVASC) 10 mg tablet amlodipine 10 mg tablet - baclofen (LIORESAL) 10 mg tablet baclofen 10 mg tablet Problem List As Of Date 05/19/2023 Noted Resolved Prostate cancer (HCC) [C61] 11/18/2022 Stage 3 chronic kidney disease (HCC) [N18.30] 11/19/2022 Encounter Status:Closed by CRISELDA CASTLE on 05/20/23 Normal [facility] Lab Reportson 05-18-2023 Lab Reports [id number]#1.00TIFF Normal [facility] Lab Reports [id number]#1.00TIFF Normal [facility] Lab Reports [id number]#1.00TIFF Normal [facility] PSA SerPl-mCncon 05-11-2023 Prostate specific Ag [Mass/Vol] 0.43 ng/mL Normal <2.60 [facility] Comment on above: Order Comment: Speci men Type: BLOOD SPECIMENOrdering Facility: [facility] Address: [address] [place] [address] Result Comment: Tota l PSA test methodology used is the Electrochemiluminescence Immunoassay by [employer]. Total PSA values by differing methodologies cannot be interchanged. Performed By: #### 2 [id number] ####[facility] LABCL[facility] [id number] [place] [address] [place] Physician Orderon 05-06-2023 Physician Order [id number]#1.00TIFF Normal [facility] C Urineon 04-25-2023 Bacteria identified Cx Nom (U) Microbiology PROCEDURE: Urine Culture [R1] SOURCE: U Random BODY SITE: COLLECTED DATE/TIME: 04/21/2023 09:29 EST RECEIVED DATE/TIME: 04/21/2023 17:59 EST START DATE/TIME: 04/21/2023 18:00 EST FREE TEXT SOURCE: CLAIRE JAMES PA-C, PA-C, JENNIFER E FINAL REPORTS Final Report [] Verified Date/Time: 04/25/2023 09:40 EST 15,000 cfu/ml Staphylococcus aureus 500 cfu/ml Mixed skin contaminants SUSCEPTIBILITY RESULTS _ LEGEND: S=Susceptible, N/R=Not Reported, Blank=Data not available, or drug not advisable or tested, I=Intermediate, ESBL=Extended spectrum beta-lactamase, R=Resistant, TFG=Thymidine-dependent strain, CATRINA=Beta-lactamase positive, ROSLYN=mcg/m;(mg/L), S*=Predicted susceptible interp, R*=Predicted resistant interp SA Antibiotic ROSLYN Dilutn ROSLYN Interp Amoxicillin/ <=4/2 S Clavulanate Ampicillin <=2 N/R Ampicillin/ <=8/4 S Sulbactam Cefazolin <=8 S Ceftaroline <=0.5 S Ciprofloxacin 2 I Daptomycin <=1 S Gentamicin <=4 S Levofloxacin <=1 S Linezolid <=2 S Nitrofurantoin <=32 S Oxacillin <=0.25 S Penicillin <=0.03 S Rifampin <=1 S Tetracycline <=4 S Trimethoprim/ <=0.5/9.5 S Sulfa Vancomycin 1 S Performing Locations R1: This test was performed at: [facility], [address] [place] [address], [address] , , [facility] Comment on above: Performed By: #### 2 [id number] ####[id number] [place] [address] Screens 04-22-2023 Screens [id number]#1.00TIFF [facility] Screens [id number]#1.00TIFF [facility] Ambulatory Visit Summaryon 1 06-21-2022 Ambulatory Visit Summary YESENIA BROUSSARD :1945 Visit Date:04/21/2023 Ambulatory Visit Instructions Your Diagnosis Nocturia UTI symptoms Erectile dysfunction Prostate cancer BPH with urinary obstruction Tests Performed Urnls Dip Stick Auto w/o Microscopy POC [id number] Your Care Team Attending Physician - CLAIRE JAMES PA-C Primary Care Physician - DOTTY MAK, CARREON This Is Your Medications List oxybutynin (oxybutynin 5 mg Tab) Contact prescribing physician if questions or concerns acetaminophen-hydrocodone ([place] 5/325 Tab) amlodipine (amLODIPine 5 mg Tab) aspirin (aspirin 81 mg oral capsule) atenolol (atenolol 50 mg Tab) baclofen (baclofen 10 mg Tab) clopidogrel (clopidogrel 75 mg Tab) ergocalciferol (Vitamin D2 50,000 intl units (1.25 mg) oral capsule) gabapentin (gabapentin 100 mg Cap) lisinopril (lisinopril 20 mg Tab) pravastatin (pravastatin 10 mg Tab) pravastatin (pravastatin 40 mg Tab) Procedures Performed Mixed beam EBRT (external beam radiation therapy) (04/23/2022), Transurethral resection of prostate (06/06/2021), Cataracts, Colonoscopy, Endarterectomy, Procedure on back. Discharge Vitals Heart Rate (Peripheral) 76 Respiratory Rate 16 Blood Pressure 151/86 Height 70 in Height 178 cm Weight 202.4 lb Weight 92 kg BMI 29.04 What to do next Scheduled Follow-Up Appointments Thursday 9:00 AM EST With: CLAIRE JAMES PA-C Where: [facility] Patient Educationon 04-21-20 Patient Education Urology Erectile Dysfunction Erectile dysfunction (ED) is the inability to get or keep an erection in order to have sexual intercourse. ED is considered a symptom of an underlying disorder and is not considered a disease. ED may include: ? Inability to get an erection. ? Lack of enough hardness of the erection to allow penetration. ? Loss of erection before sex is finished. What are the causes? This condition may be caused by: ? Physical causes, such as: ? Artery problems. This may include heart disease, high blood pressure, atherosclerosis, and diabetes. ? Hormonal problems, such as low testosterone. ? Obesity. ? Nerve problems. This may include back or pelvic injuries, multiple sclerosis, Parkinson's disease, spinal cord injury, and stroke. ? Certain medicines, such as: ? Pain relievers. ? Antidepressants. ? Blood pressure medicines and water pills (diuretics). ? Cancer medicines. ? Antihistamines. ? Muscle relaxants. ? Lifestyle factors, such as: ? Use of drugs such as marijuana, cocaine, or opioids. ? Excessive use of alcohol. ? Smoking. ? Lack of physical activity or exercise. ? Psychological causes, such as: ? Anxiety or stress. ? Sadness or depression. ? Exhaustion. ? Fear about sexual performance. ? Guilt. What are the signs or symptoms? Symptoms of this condition include: ? Inability to get an erection. ? Lack of enough hardness of the erection to allow penetration. ? Loss of the erection before sex is finished. ? Sometimes having normal erections, but with frequent unsatisfactory episodes. ? Low sexual satisfaction in either partner due to erection problems. ? A curved penis occurring with erection. The curve may cause pain, or the penis may be too curved to allow for intercourse. ? Never having nighttime or morning erections. How is this diagnosed? This condition is often diagnosed by: ? Performing a physical exam to find other diseases or specific problems with the penis. ? Asking you detailed questions about the problem. ? Doing tests, such as: ? Blood tests to check for diabetes mellitus or high cholesterol, or to measure hormone levels. ? Other tests to check for underlying health conditions. ? An ultrasound exam to check for scarring. ? A test to check blood flow to the penis. ? Doing a sleep study at home to measure nighttime erections. How is this treated? This condition may be treated by: ? Medicines, such as: ? Medicine taken by mouth to help you achieve an erection (oral medicine). ? Hormone replacement therapy to replace low testosterone levels. ? Medicine that is injected into the penis. Your health care provider may instruct you how to give yourself these injections at home. ? Medicine that is delivered with a short applicator tube. The tube is inserted into the opening at the tip of the penis, which is the opening of the urethra. A tiny pellet of medicine is put in the urethra. The pellet dissolves and enhances erectile function. This is also called MUSE (medicated urethral system for erections) therapy. ? Vacuum pump. This is a pump with a ring on it. The pump and ring are placed on the penis and used to create pressure that helps the penis become erect. ? Penile implant surgery. In this procedure, you may receive: ? An inflatable implant. This consists of cylinders, a pump, and a reservoir. The cylinders can be inflated with a fluid that helps to create an erection, and they can be deflated after intercourse. ? A semi-rigid implant. This consists of two silicone rubber rods. The rods provide some rigidity. They are also flexible, so the penis can both curve downward in its normal position and become straight for sexual intercourse. ? Blood vessel surgery to improve blood flow to the penis. During this procedure, a blood vessel from a different part of the body is placed into the penis to allow blood to flow around (bypass) damaged or blocked blood vessels. ? Lifestyle changes, such as exercising more, losing weight, and quitting smoking. Follow these instructions at home: Medicines ? Take lhdy-edh-vbvrlme and prescription medicines only as told by your health care provider. Do not increase the dosage without first discussing it with your health care provider. ? If you are using self-injections, do injections as directed by your health care provider. Make sure you avoid any veins that are on the surface of the penis. After giving an injection, apply pressure to the injection site for 5 minutes. ? Talk to your health care provider about how to prevent headaches while taking ED medicines. These medicines may cause a sudden headache due to the increase in blood flow in your body. General instructions ? Exercise regularly, as directed by your health care provider. Work with your health care provider to lose weight, if needed. ? Do not use any products that contain nicotine or tobacco. These products include cig (more content not included)... Normal [facility] Urology Office/Clinic Noteon 04-21-2023 Urology Office/Clinic Note Chief Complaint 2 month F/U178 HPI Staff Pt here for a 2 month F/U to stopping Terazosin therapy & possibly doubling Oxybutynin qhs. Pt. states no big changes since changing to Oxybutynin. Pt. states still getting up at night multiple times. PVR 17mL Last OV was 02/11/23 Previous DX; Nocturia* Taking Terazosin 10 mg per last encounter if no change in sx stay off this med but if sx worsen than restart it, *Oxybutynin 5 mg QHS Prostate cancer Pt. had a neg TRUS/bx in 04/21 due to a hard nodule at rt. base to mid. S/p TURP 06/06/21, G7 (3+4), grade group 2. 39/104 chips involved. 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 Saw Dr Nazario 12/16/21. Decided on EBRT. Pt received radiation 03/18/22 - 04/23/22. Continues to follow w their office.*No recent rad onc note found on Tink or Monogram BPH *No BPH meds at this time* Saw nephrology 03/09/23, had UA done which showed 100mg/dL protein, 5-9 RBC, and innumerable WBC, and UCx showed >100k Staph aureus. 03/23/23 - BUN 35, Cr 2.03, eGFR 33.144 Dysuria: Pt. states having just a little burning with urination Incomplete bladder emptying: no Hematuria: UA shows trace today Frequency: every 2 hours Urgency: at night Nocturia: at least 5x's Stream: good stream, Pt. states occasionally will have hesitancy. Post void dripping: no Wearing pads/ Depends: no Urge incontinence: no Stress incontinence: no Incontinence without Sensory Awareness: no Abdominal pain: no Flank pain: Pt. states he always has back pain History of Present Illness staff HPI reviewed and agree. Review of Systems PHQ Score Initial Depression Screen Score: 0 SCORE no fever, chills, malaise, myalgia. no rash/lesions. no chest pain, palpitations, or SOB. no abdominal pain, nausea, vomiting. no unilateral calf swelling, redness, pain Physical Exam Vitals & Measurements HR: 76(Peripheral) RR: 16 BP: 151/86 HT: 70 in HT: 178 cm WT: 92 kg WT: 202.4 lb BMI: 29.04 General: nontoxic, NAD Mouth: moist mucosa Lungs: normal respiratory effort Cardio: regular rate, good distal perfusion Abdomen: nondistended, no suprapubic distention or tenderness, no CVA tenderness Neurologic: Grossly normal Skin: No rashes or suspicious lesions Assessment/Plan Dr. Johnston pt 03/23/23 - BUN 35, Cr 2.03, eGFR 33.144 1. Nocturia (R35.1: Nocturia) S/p TURP 06/06/21. Had initial sx improvement but did not last. Hx of EBRT. No current sleep apnea sx, but does report hx snoring/waking gasping for air a few yrs ago but reports this has stopped. Avoids bladder irritants prior to bedtime. Stops fluids at 7-8pm. Denies leg edema during the day. Stopped Terazosin 10mg at prior OV, no worsening sx. Increased Oxybutynin to 10mg qhs at prior OV. PVR today 17cc. Still gets up 5x/night, with urge to void. States he has a fair voided volume. Admits he does perform double void maneuvers on occasion to empty at night. Discussed alternative medication option - DDAVP- and risks/benefits/SEs. Advised pt electrolytes would need to be checked after a week on the med. If levels are wnl, will increase dosage and follow up in 6-8wks. -Begin desmopressin 0.05mg qhs. Rx sent to [facility] in [place]. -Check electrolytes in 1 wk after starting med. If wnl, will increase dosage to 0.1mg qhs and recheck electrolytes 1 wk later. As long as ok will maintain this dose until f/u. 2. UTI symptoms (R39.9: Unspecified symptoms and signs involving the genitourinary system) UA 03/09/23 - 5-9 RBC, innumerable WBC. UCx 03/09/23 - >100k Staphylococcus aureus. UA today shows trace-intact blood and small leuks. Has burning with urination. Will send urine for culture. Advised pt to increase fluid intake. -Urine sample sent for C&S. Abx to be sent if cx is positive. 3. Erectile dysfunction (N52.9: Male erectile dysfunction, unspecified) KAILYN 1. States sxs have worsened over the last few years. Has tried Viagra in the past but d/c due to expense. Denies hx of MIs. Not on Nitro. Pt has not been told he isn't healthy enough for exercise/sex. Discussed options for ED, including oral medications, erection pumps, MUSE intraurethral pellet, intracorporal injection therapy, and surgical options. Pt would like to try another oral medication. Discussed the medication side effects, and the patient will monitor closely for these, as well as for symptom improvement. If severe side effects occur, the medication should be stopped and the office notified. -Begin Sildenafil 50mg prn. Rx sent to [facility] in [place]. 4. Prostate cancer (C61: Malignant neoplasm of prostate) Neg TRUS/bx done 04/23/21 due to hard nodule at R base to mid. S/p TURP 06/06/21 - G7 (3+4), GG2. Prostate MRI 11/26/21 - suggestive of developing extraprostatic extension EBRT 03/18/22 - 04/23/22. Last saw Dr. Nazario 11/18/22 and continues to follow with rad onc. PSA 04/17/21 - 9.95 11/04/21 - 3.73 05/09/22 - 2.81 11/17/22 - 0.50 5. BPH with urinary obstruction (N4 (more content not included)... Normal [facility] Comment on above: Result Comment: Elec tronically Signed By: CLAIRE JAMES PA-C\.br\Date and Time Signed: 04/21/23 09:33 EST\.br\Electronically Co-Signed By: Rosario Byrne\.br\Date and Time Co-Signed: 04/21/23 09:14 EST US ankle/arm indiceson 04-16 US ankle/arm indices [facility] [place] [address] [place] [address] Ultrasound Report Signed Patient: Yesenia Broussard MR#: [id number] : 1945 Acct:[id number] Age/Sex: 77 / M ADM Date: 04/16/23 Loc: [facility] Room: Type: [facility] Attending Dr: Jose Martin Mchugh MD Ordering Provider: Jose Martin Mcuhgh MD Date of Service: 04/16/23 US/US ankle/arm indices: I70.213 Copies to: Jose Martin Mchugh MD LOWER EXTREMITY SEGMENTAL ARTERIAL DOPSCAN (PVR) INDICATION: New post procedure baseline study for the left lower extremity after intervention. PROCEDURE: Right arm blood pressure is 149 , left is 160 . Pressures of the right leg are 171 at the ankle using the posterior tibial artery and 146 at the ankle using the dorsalis pedis artery with ankle-brachial index of 0.91 1.07 . Pressures of the left leg are 152 at the ankle using the posterior tibial artery and 131 at the ankle using the dorsalis pedis artery with ankle-brachial index of 0.82 0.95 . Wave forms by plethysmography are multiphasic, bilaterally. 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 A significant improvement was identified after intervention. Prior left lower extremity PERI was 0.56. Impression dictated by: Jose Martin Mchugh MD04/16/2023 1:28 PM Dictation Location: [place] [address] Tech: Torrie Enid Transcribed By: LUCY 04/16/23 1328 Dictated By: Jose Martin Mchugh MD 04/16/23 1327 Signed By: 04/16/23 1328 [facility] Blood Urea Nitrogenon 2022 Urea nitrogen [Mass/Vol] 35 mg/dL High 7-25 [facility] Comment on above: Performed By: #### B JUNE CREAT ####[facility] [place] [id number] [facility] Creatinineon 03-23-2023 Creatinine [Mass/Vol] 2.03 mg/dL High 0.70-1.30 [facility] Comment on above: Performed By: #### B JUNE CREAT ####[facility] [place] [address] [facility] Creatinine Clr Calc Pharmacy 34.29 [facility] Comment on above: Result Comment: PERF ORMED BY: [facility] [address] [place] [id number] PATHOLOGIST WIG COMBER ANA HURT M.D. Performed By: #### B UN, CREAT ####[facility] [address] [place] [id number] [place] GFR/1.73 sq M.predicted MDRD (S/P/Bld) [Vol rate/Area] 33.144 mL/min/{1.73_m2} Normal [facility] Comment on above: Performed By: #### B UN, CREAT ####[facility] [address] [place] [id number] [facility] Creatinine [Mass/volume] in Serum or PlasmaOrdered By: Jose Martin Mchugh on 03-23-2023 Creatinine [Mass/Vol] 2.03 mg/dL 0.70-1.30 [facility] No Panel InformationOrdered By: Jose Martin Mchugh on 03-23-2023 Estimated GFR (CKD-EPI) 33.144 mL/Min [facility] Creatinine Clearance (Chem 34.29 [facility] Urea nitrogen [Mass/volume] in Serum or PlasmaOrdered By: Jose Martin Mchugh on 03-23-2023 Urea nitrogen [Mass/Vol] 35 mg/dL 7- [facility] Albumin [Mass/volume] in Ser um or Plasma by Bromocresol green (BCG) dye binding methoOrdered By: Theo Park on 03-09-2023 Albumin BCG dye [Mass/Vol] 4.1 g/dL 3.5-5.7 [facility] Automated erythrocytes count in urine sediment (number/area)Ordered By: Theo Park on 03-09-2023 RBC Auto (Urine sed) [#/Area] 5-9 [HPF] 0-4 [facility] Automated leukocytes count i n urine sediment (number/area)Ordered By: Theo Park on 03-09-2023 WBC Auto (Urine sed) [#/Area] Innumerable [HPF] 0-4 [facility] Bilirubin Test strip Ql (U)O rdered By: Theo Park on 03-09-2023 Bilirubin Ql (U) Negative Negative [facility] Calcium [Mass/volume] in Ser um or PlasmaOrdered By: Theo Park on 03-09-2023 Calcium [Mass/Vol] 9.3 mg/dL 8.6-10.3 [facility] Carbon dioxide, total [Moles /volume] in Serum or PlasmaOrdered By: Theo Park on 03-09-2023 CO2 [Moles/Vol] 26.4 mmol/L 21.0-31.0 [facility] Chloride [Moles/volume] in S jaime or PlasmaOrdered By: Theo Park on 03-09-2023 Chloride [Moles/Vol] 104 mmol/L 98-107 [facility] Color Auto (U)Ordered By: Ab bola Park on 03-09-2023 Color (U) Yellow Yellow [facility] Creatinine [Mass/volume] in Serum or PlasmaOrdered By: Theo Park on 03-09-2023 Creatinine [Mass/Vol] 1.83 mg/dL 0.70-1.30 [facility] Creatinine [Mass/volume] in UrineOrdered By: Theo Park on 03-09-2023 Creatinine (U) [Mass/Vol] 162.0 mg/dL 14.0-26.0 [facility] Dipstick and Microscopicon 1 Appearance (U) Cloudy Critically abnormal Clear [facility] Comment on above: Order Comment: Reaso n for Exam Chronic kidney disease, stage III (moderate);Charly tyron sergio w cr Name Collection Type:: Clean-Voided Midstream Performed By: #### C UU, RENAL, PTH, ADDONUAPLUS, [id number], URIC, PROCRERAT, MG #### [facility] [address] [place] [address] [place] Bacteria,Urine None Seen Normal None Seen [facility] Comment on above: Order Comment: Reaso n for Exam Chronic kidney disease, stage III (moderate);Charly tyron kid w cr Name Collection Type:: Clean-Voided Midstream Performed By: #### C UU, RENAL, PTH, ADDONUAPLUS, [id number], URIC, PROCRERAT, MG #### [facility] [address] [place] [id number] [place] Bilirubin,Urine Negative Normal Negative [facility] Comment on above: Order Comment: Reaso n for Exam Chronic kidney disease, stage III (moderate);Charly palomo cr Name Collection Type:: Clean-Voided Midstream Performed By: #### C UU, RENAL, PTH, ADDONUAPLUS, [id number], URIC, PROCRERAT, MG #### [facility] [address] [place] [id number] [place] Color (U) Yellow Normal Yellow [facility] Comment on above: Order Comment: Reaso n for Exam Chronic kidney disease, stage III (moderate);Charly palomo cr Name Collection Type:: Clean-Voided Midstream Performed By: #### C UU, RENAL, PTH, ADDONUAPLUS, [id number], URIC, PROCRERAT, MG #### [facility] [address] Glucose Ql (U) Normal Normal Normal [facility] Comment on above: Order Comment: Reaso n for Exam Chronic kidney disease, stage III (moderate);Charly palomo cr Name Collection Type:: Clean-Voided Midstream Performed By: #### C UU, RENAL, PTH, ADDONUAPLUS, [id number], URIC, PROCRERAT, MG #### [facility] [address] [place] [address] [place] Hyaline Casts,Urine None Seen Normal 0-8 [facility] Comment on above: Order Comment: Reaso n for Exam Chronic kidney disease, stage III (moderate);Charly palomo cr Name Collection Type:: Clean-Voided Midstream Result Comment: PERF ORMED BY: [place] [address] PATHOLOGIST WIG COMBER ANA HURT M.D. Performed By: #### C UU, RENAL, PTH, ADDONUAPLUS, [id number], URIC, PROCRERAT, MG #### [facility] [address] [place] [address] [place] Ketones Ql (U) Negative Normal Negative [facility] Comment on above: Order Comment: Reaso n for Exam Chronic kidney disease, stage III (moderate);Charly palomo cr Name Collection Type:: Clean-Voided Midstream Performed By: #### C UU, RENAL, PTH, ADDONUAPLUS, [id number], URIC, PROCRERAT, MG #### [address] Leukocyte esterase Test strip Ql (U) 4+ High Negative [facility] Comment on above: Order Comment: Reaso n for Exam Chronic kidney disease, stage III (moderate);Charly palomo cr Name Collection Type:: Clean-Voided Midstream Performed By: #### C UU, RENAL, PTH, ADDONUAPLUS, [id number], URIC, PROCRERAT, MG #### [facility] [address] [place] [address] Nitrite,Urine Negative Normal Negative [facility] Comment on above: Order Comment: Reaso n for Exam Chronic kidney disease, stage III (moderate);Charly palomo cr Name Collection Type:: Clean-Voided Midstream Performed By: #### C UU, RENAL, PTH, ADDONUAPLUS, [id number], URIC, PROCRERAT, MG #### [address] Occult Blood,Urine 1+ High Negative [facility] Comment on above: Order Comment: Reaso n for Exam Chronic kidney disease, stage III (moderate);Charly plaomo cr Name Collection Type:: Clean-Voided Midstream Performed By: #### C UU, RENAL, PTH, ADDONUAPLUS, [id number], URIC, PROCRERAT, MG #### [address] pH (U) 5.5 [pH] Normal 5.0-9.0 [facility] Comment on above: Order Comment: Reaso n for Exam Chronic kidney disease, stage III (moderate);Charly palomo cr Name Collection Type:: Clean-Voided Midstream Performed By: #### C UU, RENAL, PTH, ADDONUAPLUS, [id number], URIC, PROCRERAT, MG #### [address] Protein (U) [Mass/Vol] 100 mg/dL High Negative [facility] Comment on above: Order Comment: Reaso n for Exam Chronic kidney disease, stage III (moderate);Charly palomo cr Name Collection Type:: Clean-Voided Midstream Performed By: #### C UU, RENAL, PTH, ADDONUAPLUS, [id number], URIC, PROCRERAT, MG #### [facility] [address] RBC,Urine 5-9 High 0-4 [facility] Comment on above: Order Comment: Reaso n for Exam Chronic kidney disease, stage III (moderate);Charly palomo cr Name Collection Type:: Clean-Voided Midstream Performed By: #### C UU, RENAL, PTH, ADDONUAPLUS, [id number], URIC, PROCRERAT, MG #### [facility] [address] [place] [address] Specificy [place],Urine 1.018 Normal 1.001-1.03 0 [facility] Comment on above: Order Comment: Reaso n for Exam Chronic kidney disease, stage III (moderate);Charly palomo cr Name Collection Type:: Clean-Voided Midstream Performed By: #### C UU, RENAL, PTH, ADDONUAPLUS, [id number], URIC, PROCRERAT, MG #### [facility] [address] [place] [address] Squamous Epithelial Cell,Urine None Seen Normal 0-2 [facility] Comment on above: Order Comment: Reaso n for Exam Chronic kidney disease, stage III (moderate);Charly palomo cr Name Collection Type:: Clean-Voided Midstream Performed By: #### C UU, RENAL, PTH, ADDONUAPLUS, [id number], URIC, PROCRERAT, MG #### [facility] [address] [place] [address] Urobilinogen,Urine Normal Normal Normal [facility] Comment on above: Order Comment: Reaso n for Exam Chronic kidney disease, stage III (moderate);Charly hill w cr Name Collection Type:: Clean-Voided Midstream Performed By: #### C UU, RENAL, PTH, ADDONUAPLUS, [id number], URIC, PROCRERAT, MG #### [facility] [address] [place] [id number] [place] WBC,Urine Innumerable High 0-4 [facility] Comment on above: Order Comment: Reaso n for Exam Chronic kidney disease, stage III (moderate);Charly hill w cr Name Collection Type:: Clean-Voided Midstream Performed By: #### C UU, RENAL, PTH, ADDONUAPLUS, [id number], URIC, PROCRERAT, MG #### [facility] [address] [place] [id number] [place] Glucose [Mass/volume] in Ser um or PlasmaOrdered By: Theo Park on 03-09-2023 Glucose [Mass/Vol] 126 mg/dL 70-100 [facility] Comment on above: ADA recommended refe rence rangeRandom Glucose Reference Range is dependent on time and content of last meal. Glucose of more than 200 mg/dL in a nonstressed, ambulatory subject supports the diagnosis of Diabetes Mellitus. Ketones Auto test strip (U) [Mass/Vol]Ordered By: Theo Park on 03-09-2023 Ketones (U) [Mass/Vol] Negative Negative [facility] - UrinalysisOrder ed By: Theo Park on 03-09-2023 Hyaline casts LM Ql (Urine sed) None seen [LPF] 0-8 [facility] Magnesiumon 03-09-2023 Magnesium [Mass/Vol] 2.2 mg/dL Normal 1.9-2.7 [facility] Comment on above: Order Comment: Reaso n for Exam Chronic kidney disease, stage III (moderate);Charly tyron kid w cr Performed By: #### C UU, RENAL, PTH, ADDONUAPLUS, [id number], URIC, PROCRERAT, MG #### [facility] [address] [place] [id number] [place] Magnesium [Mass/volume] in S jaime or PlasmaOrdered By: Theo Park on 03-09-2023 Magnesium [Mass/Vol] 2.2 mg/dL 1.9-2.7 [facility] Nitrite Test strip Ql (U)Ord ered By: Theo Park on 03-09-2023 Nitrite Ql (U) Negative Negative [facility] No Panel InformationOrdered By: Theo Park on 03-09-2023 Estimated GFR (CKD-EPI) 37.537 mL/Min [facility] Creatinine Clearance (Chem N/A [facility] Parathyrin.intact [Mass/volu me] in Serum or PlasmaOrdered By: Theo Park on 03-09-2023 Parathyrin.intact [Mass/Vol] 128.0 pg/mL [facility] Parathyroid Hormone Intacton 03-09-2023 Parathyroid Hormone Intact 128.0 pg/mL High [facility] Comment on above: Order Comment: Reaso n for Exam Chronic kidney disease, stage III (moderate);Charly hy kid w cr Result Comment: PERF ORMED BY: [place] [address] PATHOLOGIST WIG COMBER ANA HURT M.D. Performed By: #### C UU, RENAL, PTH, ADDONUAPLUS, [id number], URIC, PROCRERAT, MG #### [address] Phosphate [Mass/volume] in S jaime or PlasmaOrdered By: Theo Park on 03-09-2023 Phosphate [Mass/Vol] 4.1 mg/dL 3.7-7.2 [facility] Potassium [Moles/volume] in Serum or PlasmaOrdered By: Theo Park on 03-09-2023 Potassium [Moles/Vol] 4.7 mmol/L 3.5-5.1 [facility] Protein Auto test strip (U) [Mass/Vol]Ordered By: Theo Park on 03-09-2023 Protein (U) [Mass/Vol] 100 mg/dL Negative [facility] Protein Creat Ratio Ur [place] mon 03-09-2023 Creatinine, Urine (Random) 162.0 mg/dL High 14.0-26.0 [facility] Comment on above: Order Comment: Reaso n for Exam Chronic kidney disease, stage III (moderate);Charly hy kid w cr Performed By: #### C UU, RENAL, PTH, ADDONUAPLUS, [id number], URIC, PROCRERAT, MG #### [facility] [address] Protein (U) [Mass/Vol] 104 mg/dL High 0-9 [facility] Comment on above: Order Comment: Reaso n for Exam Chronic kidney disease, stage III (moderate);Charly hy kid w cr Performed By: #### C UU, RENAL, PTH, ADDONUAPLUS, [id number], URIC, PROCRERAT, MG #### [facility] [address] Urine Protein/Creatinine Ratio 642 mg/g{Cre} High 0-200 [facility] Comment on above: Order Comment: Reaso n for Exam Chronic kidney disease, stage III (moderate);Charly hy kid w cr Result Comment: PERF ORMED BY: [place] [address] PATHOLOGIST WIG COMBER ANA HURT M.D. Performed By: #### C UU, RENAL, PTH, ADDONUAPLUS, [id number], URIC, PROCRERAT, MG #### [facility] [address] [place] [address] Protein [Mass/volume] in Uri neOrdered By: Theo Park on 03-09-2023 Protein (U) [Mass/Vol] 104 mg/dL 0-9 [facility] Renal Function Panelon 03-09 Albumin [Mass/Vol] 4.1 g/dL Normal 3.5-5.7 [facility] Comment on above: Order Comment: Reaso n for Exam Chronic kidney disease, stage III (moderate);Charly hy kid w cr Performed By: #### C UU, RENAL, PTH, ADDONUAPLUS, [id number], URIC, PROCRERAT, MG #### [facility] [address] Anion gap [Moles/Vol] 10.3 mmol/L Normal 6.0-15.0 [facility] Comment on above: Order Comment: Reaso n for Exam Chronic kidney disease, stage III (moderate);Charly hy kid w cr Performed By: #### C UU, RENAL, PTH, ADDONUAPLUS, [id number], URIC, PROCRERAT, MG #### [facility] [address] [place] [id number] [facility] Calcium [Mass/Vol] 9.3 mg/dL Normal 8.6-10.3 [facility] Comment on above: Order Comment: Reaso n for Exam Chronic kidney disease, stage III (moderate);Charly hy kid w cr Performed By: #### C UU, RENAL, PTH, ADDONUAPLUS, [id number], URIC, PROCRERAT, MG #### [facility] [address] [place] [id number] [facility] Chloride [Moles/Vol] 104 mmol/L Normal 98-107 [facility] Comment on above: Order Comment: Reaso n for Exam Chronic kidney disease, stage III (moderate);Charly hy kid w cr Performed By: #### C UU, RENAL, PTH, ADDONUAPLUS, [id number], URIC, PROCRERAT, MG #### [facility] [address] [place], [place] [id number] [facility] CO2 [Moles/Vol] 26.4 mmol/L Normal 21.0-31.0 [facility] Comment on above: Order Comment: Reaso n for Exam Chronic kidney disease, stage III (moderate);Charly hy kid w cr Performed By: #### C UU, RENAL, PTH, ADDONUAPLUS, [id number], URIC, PROCRERAT, MG #### [facility] [address] [place] [id number] [place] Creatinine [Mass/Vol] 1.83 mg/dL High 0.70-1.30 [facility] Comment on above: Order Comment: Reaso n for Exam Chronic kidney disease, stage III (moderate);Charly hy kid w cr Performed By: #### C UU, RENAL, PTH, ADDONUAPLUS, [id number], URIC, PROCRERAT, MG #### [facility] [address] GFR/1.73 sq M.predicted MDRD (S/P/Bld) [Vol rate/Area] 37.537 mL/min/{1.73_m2} Normal [facility] Comment on above: Order Comment: Reaso n for Exam Chronic kidney disease, stage III (moderate);Charly hy kid w cr Performed By: #### C UU, RENAL, PTH, ADDONUAPLUS, [id number], URIC, PROCRERAT, MG #### [facility] [address] Glucose [Mass/Vol] 126 mg/dL High 70-100 [facility] Comment on above: Order Comment: Reaso n for Exam Chronic kidney disease, stage III (moderate);Charly tyron kid w cr Result Comment: [facility] Glucose Reference Range is dependent on time and content of last meal. Glucose of more than 200 mg/dL in a nonstressed, ambulatory subject supports the diagnosis of Diabetes Mellitus. ADA recommended reference range Performed By: #### C UU, RENAL, PTH, ADDONUAPLUS, [id number], URIC, PROCRERAT, MG #### [facility] [address] Phosphate [Mass/Vol] 4.1 mg/dL Normal 3.7-7.2 [facility] Comment on above: Order Comment: Reaso n for Exam Chronic kidney disease, stage III (moderate);Charly tyron kid w cr Performed By: #### C UU, RENAL, PTH, ADDONUAPLUS, [id number], URIC, PROCRERAT, MG #### [facility] [address] Potassium [Moles/Vol] 4.7 mmol/L Normal 3.5-5.1 [facility] Comment on above: Order Comment: Reaso n for Exam Chronic kidney disease, stage III (moderate);Charly hy kid w cr Performed By: #### C UU, RENAL, PTH, ADDONUAPLUS, [id number], URIC, PROCRERAT, MG #### [facility] [address] Sodium [Moles/Vol] 136 mmol/L Normal 136-145 [facility] Comment on above: Order Comment: Reaso n for Exam Chronic kidney disease, stage III (moderate);Charly hy kid w cr Performed By: #### C UU, RENAL, PTH, ADDONUAPLUS, [id number], URIC, PROCRERAT, MG #### [facility] [address] Urea nitrogen [Mass/Vol] 30 mg/dL High 7-25 [facility] Comment on above: Order Comment: Reaso n for Exam Chronic kidney disease, stage III (moderate);Charly hy kid w cr Performed By: #### C UU, RENAL, PTH, ADDONUAPLUS, [id number], URIC, PROCRERAT, MG #### [facility] [address] Serum or plasma anion gap de terminationOrdered By: Theo Park on 03-09-2023 Anion gap [Moles/Vol] 10.3 mmol/L 6.0-15.0 [facility] Sodium [Moles/volume] in Ser um or PlasmaOrdered By: Theo Park on 03-09-2023 Sodium [Moles/Vol] 136 mmol/L 136-145 [facility] Specific gravity Auto test s trip (U) [Rel density]Ordered By: Theo Park on 03-09-2023 Specific gravity (U) [Rel density] 1.018 1.001-1.03 0 [facility] Squamous epithelial cells de tection in urine sediment by light microscopyOrdered By: Theo Park on 03-09-2023 Epithelial cells.squamous LM Ql (Urine sed) None seen [HPF] 0-2 [facility] Urate [Mass/volume] in Serum or PlasmaOrdered By: Theo Park on 03-09-2023 Urate [Mass/Vol] 7.1 mg/dL 4.4-7.6 [facility] Urea nitrogen [Mass/volume] in Serum or PlasmaOrdered By: Theo Park on 03-09-2023 Urea nitrogen [Mass/Vol] 30 mg/dL 7-25 [facility] Uric Acidon 03-09-2023 Urate [Mass/Vol] 7.1 mg/dL Normal 4.4-7.6 [facility] Comment on above: Order Comment: Reaso n for Exam Chronic kidney disease, stage III (moderate);Charly hy kid w cr Performed By: #### C UU, RENAL, PTH, ADDONUAPLUS, [id number], URIC, PROCRERAT, MG #### [facility] [address] Urine Cultureon 03-09-2023 Bacteria identified Cx Nom (U) ORGANISM: Staphylococcus aureus (O:STAAUR) [place] Count >100,000 Aerobic ROSLYN Charge (PCMIC38) SUSCEPTIBILITY ORGANISM: O:STAAUR ANTIBIOTIC INTERPRETATION ROSLYN Ceftaroline S <0.5 Ciprofloxacin I 2 Daptomycin S <0.5 Levofloxacin S <1 Linezolid S 2 Nitrofurantoin S <32 Oxacillin S <0.25 Penicillin S <0.03 Tetracycline S <4 Trimethoprim/Sulfamethoxaz ole S <0.5 Vancomycin S 1 S = SUSCEPTIBLE I = INTERMEDIATE R = RESISTANT BLANK = DATA NOT AVAILABLE, OR DRUG NOT ADVISABLE OR TESTED R* = RESISTANCE DUE TO EXTENDED SPECTRUM BETA-LACTAMASES ESBL = EXTENDED SPECTRUM BETA-LACTAMASE TFG = THYMIDINE-DEPENDENT STRAIN CATRINA = BETA-LACTAMASE POSITIVE IB = INDUCIBLE BETA-LACTAMASE. APPEARS IN PLACE OF 'S' WITH SPECIES KNOWN TO POSSESS INDUCIBLE BETA-LACTAMASES. POTENTIALLY THEY MAY BECOME RESISTANT TO ALL B-LACTAM DRUGS. PERFORMED BY: [facility] [address] [place] [address] PATHOLOGIST WIG COMBER ANA HURT M.D. Normal [facility] Comment on above: Performed By: #### C UU, RENAL, PTH, ADDONUAPLUS, [id number], URIC, PROCRERAT, MG ####[facility] [id number] [place] [address] [facility] Urine bacteria detection by automated methodOrdered By: Theo Park on 03-09-2023 Bacteria Auto Ql (U) None seen None Seen [facility] Urine clarity by refractomet ry automatedOrdered By: Theo Park on 03-09-2023 Clarity Refractometry automated (U) Cloudy Clear [facility] Urine culture routineOrdered By: Theo Park on 03-09-2023 Bacteria identified Cx Nom (U) Staphylococcus aureus [facility] Bacteria identified Cx Nom (U) Staphylococcus aureus [facility] Urine glucose measurement by automated test strip (mass/volume)Ordered By: Theo Park on 03-09-2023 Glucose Auto test strip (U) [Mass/Vol] Normal mg/dL Normal [facility] Urine hemoglobin detection b y automated test stripOrdered By: Theo Park on 03-09-2023 Hemoglobin Auto test strip Ql (U) 1+ Negative [facility] Urine leukocyte esterase det ection by automated test stripOrdered By: Theo Park on 03-09-2023 Leukocyte esterase Auto test strip Ql (U) 4+ Negative [facility] Urine protein/creatinine rat ioOrdered By: Theo Park on 03-09-2023 Protein/Creatinine (U) [Ratio] 642 mg/g{Cre} 0-200 [facility] Urobilinogen Auto test strip (U) [Mass/Vol]Ordered By: Theo Park on 03-09-2023 Urobilinogen (U) [Mass/Vol] Normal mg/dL Normal [facility] Vitamin D 25 Hydroxy Totalon 03-09-2023 Vitamin D 25 Hydroxy Total 18.9 ng/mL Low 30-100 [facility] Comment on above: Order Comment: Reaso n for Exam Chronic kidney disease, stage III (moderate);Charly hy kid w cr Result Comment: [place] MIN D STATUS 25([place])VITAMIN D RANGE (ng/mL) Deficient <20 Insufficient 20 to <30 Sufficient 30 to 100 Reference: Grecia MF,Wayne NC, John RIVERS, et al. Evaluation,treatment, and prevention of vitamin D deficiency; an Endocrine Society clinical practice guideline. JCEM. 2010; 96(7):191-. PERFORMED BY: [place] [address] PATHOLOGIST WIG COMBER ANA HURT M.D. Performed By: #### C UU, RENAL, PTH, ADDONUAPLUS, [id number], URIC, PROCRERAT, MG ####[facility] [id number] Vitamin D+Metabolites [Mass/ volume] in Serum or PlasmaOrdered By: Theo Park on 03-09-2023 Vitamin D+Metabolites [Mass/Vol] 18.9 ng/mL 30-100 [facility] Comment on above: VITAMIN D STATUS 25( [place])VITAMIN D RANGE (ng/mL) Deficient <20 Insufficient 20 to <30Sufficient 30 to 100Reference: Grecia MF,Wayne PALMER, John RIVERS, et al. Evaluation,treatment, and prevention of vitamin D deficiency; an Endocrine Society clinical practice guideline. JCEM. 2010; 96(7):1911-30. pH Auto test strip (U)Ordere d By: Theo Park on 03-09-2023 pH (U) 5.5 [pH] 5.0-9.0 [facility] US art pvr/post Kaleb 023 US art pvr/post LE [facility] [place] [address] Ultrasound Report Signed Patient: Yesenia Broussard MR#: [id number] 238 : 1945 Acct:[id number] Age/Sex: 77 / M ADM Date: 03/05/23 Loc: Room: Type: [facility] Attending Dr: Jose Martin Mchugh MD Ordering Provider: Jose Martin Mchugh MD Date of Service: 03/05/23 US/US art pvr/post LE: I65.23, I70.213 Copies to: Jose Martin Mchugh MD LOWER EXTREMITY SEGMENTAL ARTERIAL DOPSCAN (PVR) INDICATION: Peripheral vascular disease with claudication PROCEDURE: Right arm blood pressure is 157 mmHg in the left arm blood pressure is 166 mmHg. Pressures throughout the right lower extremity are 194th the high thigh, 177 at the low thigh, 162 at the calf, 152 at the ankle in the posterior tibial 143 mmHg at the ankle in the dorsalis pedis giving an ankle-brachial index of 0.92. Pressures of the left lower extremity are 176 at the high thigh, 134th the low thigh, 114 at the calf, 93 mmHg at the ankle in the posterior tibial and 83 mmHg at the ankle in the dorsalis pedis. This gives a left ankle-brachial index of 0.56. There is mild blunting of the waveforms in the right lower extremity by plethysmography. There is moderate blunting of the left lower extremity waveforms by plethysmography. Patient was then walked on a treadmill was able to walk 7 minutes total. Symptoms in the left leg again at 3 minutes. At 6 minutes there was bilateral lower extremity discomfort. The right ankle- brachial index is diminished from 0.92, 0.76 after exercise. The left ankle-brachial index diminished from 0.56-0.34 after exercise. US/US art pvr/post LE IMPRESSION: Mild peripheral vascular occlusive disease in the right lower extremity at rest. The hemodynamic response after exercise suggests the likelihood of vasculogenic claudication. Moderately severe peripheral vascular occlusive disease in the left lower extremity at rest. There is also hemodynamic response with exercise suggesting the likelihood of vasculogenic claudication. Impression dictated by: Sean Vick M.D.03/06/2023 2:55 PM Dictation Location: [place] [address] Tech: Torrie Enid Transcribed By: LUCY 03/06/23 145 Dictated By: Sean Vick MD 03/06/231451 Signed By: 03/06/23 145 Normal [facility] US carotid doppler BIon 10-0 US carotid doppler [facility] [address] [place] [address] [place] [address] Ultrasound Report Signed Patient: Yesenia Broussard MR#: [id number] 238 : 1945 Acct:[id number] Age/Sex: 77 / M ADM Date: 03/04/23 Loc: Room: Type: [facility] Attending Dr: Jose Martin Mchugh MD Ordering Provider: Jose Martin Mchugh MD Date of Service: 03/04/23 US/US carotid doppler BI: I65.23,I70.213 Copies to: Jose Martin Mchugh MD CAROTID DUPLEX INDICATION: Known carotid occlusive disease status post bilateral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 to surgery then weaned off after surgery - helped, no s/e Therapies PT 2021 for 5-6 visits - made his pain worse, especially crab walk with band around his legs Prior spine interventions: -Lumbar procedures with Pain Management [facility] Dr. Oliva. -RFA ordered following MBB #2 01/07/22 BL L2, L3, L4, L5 MBB - 95% relief same day 12/17/21 BL L2, L3, L4, L5 MBB - 90% relief x 1 hour, then 50% for a few hours -Lumbar injections in [place] prior to surgery. Had at least a few injections, including RFA, LESI, SIJ, he remembers one of the injections helping. Prior spine surgery: L4-5 Previously treated by: -Pain Management at [facility] in [place], [place], Dr. Barbara Farias on 07/07/22 virtual visit. Noted MRI shows L4-5 spondylolisthesis with severe facet arthropathy, severe left subarticular and foraminal stenosis, s/p right sided decompression, there is also right sided disc collapse and severe foraminal stenosis at L5-S1. Offered L4-S1 ALIF with posterior L4-S1 robotic assisted fusion. PMH: CKD 3 PAD - has had testing outside including what sounds like PVR and US, sees outside Cardiology On ASA 81mg h/o cancer: Prostate cancer s/p definitive radiation, TURP, follows rad-onc, Onc, AND Urology, monitoring PSA. PSH: See below Social: Home life: Moved to [place] 2020. Litigation: No Workers' Compensation: No YELLOW AND BLUE FLAGS No-Neg Attitude; Back Pain is Disabling No-Avoiding Activity (f (more content not included)... Normal [facility] Auth for Release of Medical Recordson 01-15-2023 Auth for Release of Medical Records [id number] Normal [facility] Rena 01-15-2023 CNPN Telephone (4CQ) -- HELENAYESENIA R ([id number]) 1945 M Date Time Provider Department 01/15/23 JOSE NICHOLS 4CQ During your visit today, we recorded the following information about you: Paul Cat 01/15/2023 12:17 PM Signed Yesenia Broussard is calling Jose Nichols DO today Patient spouse called in stating they were unable to get Lumbar MRI done prior to Thursday appt. The facility they are going to scheduled them for 03/17/23. Spouse is asking if they should still come in on Thursday. Please advise and call patient back. No chief complaint on file. Patient has been identified by name and birthdate. Duration of symptoms: N/A Person calling: self Call patient at: at home [phone] (home) [phone] (cell) Was an appointment scheduled: No Closing statement: Results or non-symptom based questions: Thank you for calling [facility], your call will be returned within the next business day. Julianna Pozo, RN 01/15/2023 3:01 PM Signed Forwarding to provider for review. New NI patient. Julianna Yuan, MEHNAZ 01/16/2023 8:29 AM Signed Jose Nichols DO You 14 hours ago (5:29 PM) It looks like there is an MRI lumbar from last year, so I guess we could base our discussion off that for now, unless he had back surgery since then. Just let him know that we will likely need a follow up after the new MRI. Thanks Julianna Yuan, RN 01/16/2023 8:29 AM Signed Left message on [employer] for patient to call office back or to read [employer] message. Allergies As of Date: 01/15/2023 (No Known Allergies) Date Reviewed: 11/19/2022 Reviewed by: Bhumika Betts APRN.CELL GENETICIST - Fully Assessed Reason for Visit: Orders [681] Appointment [186] Prescriptions as of 01/19/2023 - Terazosin HCl (HYTRIN) 10 mg capsule - aspirin 81 mg cap Take by mouth. - pravastatin (PRAVACHOL) 10 mg tablet pravastatin 10 mg tablet - atenolol (TENORMIN) 50 mg tablet atenolol 50 mg tablet - lisinopril (ZESTRIL, PRINIVIL) 20 mg tablet q 24 HR. - HYDROcodone-acetaminophen (NORCO) 5-325 mg per tablet TAKE 1 TABLET BY MOUTH TWICE DAILY NEEDED FOR LUMBAR RADICULOPATHY - amLODIPine (NORVASC) 10 mg tablet amlodipine 10 mg tablet - baclofen (LIORESAL) 10 mg tablet baclofen 10 mg tablet - pregabalin (LYRICA) 50 mg capsule Take 50 mg by mouth twice daily. Problem List As Of Date 01/15/2023 Noted Resolved Prostate cancer (HCC) [C61] 11/18/2022 Stage 3 chronic kidney disease (HCC) [N18.30] 11/19/2022 Encounter Status:Closed by JULIANNA YUAN on 01/19/23 Normal [facility] Alanine aminotransferase [En zymatic activity/volume] in Serum or PlasmaOrdered By: Shaikh Dotty on 01-09-2023 ALT [Catalytic activity/Vol] 12 U/L 7-52 [facility] Albumin [Mass/volume] in Ser um or Plasma by Bromocresol green (BCG) dye binding methoOrdered By: Shaikh Dotty on 01-09-2023 Albumin BCG dye [Mass/Vol] 4.2 g/dL 3.5-5.7 [facility] Alkaline phosphatase [Enzyma tic activity/volume] in Serum or PlasmaOrdered By: Shaikh Dotty on 01-09-2023 ALP [Catalytic activity/Vol] 66 U/L 34-104 [facility] Aspartate aminotransferase [ Enzymatic activity/volume] in Serum or PlasmaOrdered By: Shaikh Dotty on 01-09-2023 AST [Catalytic activity/Vol] 13 U/L 13-39 [facility] Basophils Auto (Bld) [#/Vol] Ordered By: Shaikh Dotty on 01-09-2023 Basophils (Bld) [#/Vol] 0.0 10*3/uL 0.0-0.2 [facility] Basophils/100 WBC Auto (Bld) Ordered By: Shaikh Dotty on 01-09-2023 Basophils/100 WBC (Bld) 0.5 % . [facility] Bilirubin.total [Mass/volume ] in Serum or PlasmaOrdered By: Shaikh Dotty on 01-09-2023 Bilirubin [Mass/Vol] 0.3 mg/dL 0.3-1.0 [facility] Calcium [Mass/volume] in Ser um or PlasmaOrdered By: Shaikh Dotty on 01-09-2023 Calcium [Mass/Vol] 9.2 mg/dL 8.6-10.3 [facility] Carbon dioxide, total [Moles /volume] in Serum or PlasmaOrdered By: Shaikh Dotty on 01-09-2023 CO2 [Moles/Vol] 26.1 mmol/L 21.0-31.0 [facility] Chloride [Moles/volume] in S jaime or PlasmaOrdered By: Shaikh Dotty on 01-09-2023 Chloride [Moles/Vol] 109 mmol/L 98-107 [facility] Cholesterol [Mass/volume] in Serum or PlasmaOrdered By: Shaikh Dotty on 01-09-2023 Cholesterol [Mass/Vol] 178 mg/dL 140-200 [facility] Comment on above: Chol less than 200 m g/dl low riskChol 201-239 mg/dl borderline riskChol 240 mg/dl and greater high risk Cholesterol in LDL Calc [Mas s/Vol]Ordered By: Shaikh Dotty on 01-09-2023 Cholesterol in LDL [Mass/Vol] 115 mg/dL 0-100 [facility] Comment on above: LDL ATP III CLASSIFI CATIONLDL less than 100 mg/dL OptimalLDL 100-129 mg/dL Near or above optimalLDL 130-159 mg/dL Borderline highLDL 160-189 mg/dL HighLDL greater than 189 mg/dL Very high Cholesterol in VLDL Calc [Ma ss/Vol]Ordered By: Shaikh Dotty on 01-09-2023 Cholesterol in VLDL [Mass/Vol] 32 mg/dL [facility] Complete Blood Count Auto Di ffon 01-09-2023 Basophils (Bld) [#/Vol] 0.0 10*3/uL Normal 0.0-0.2 [facility] Comment on above: Result Comment: PERF ORMED BY: [facility] [address] [place] [address] PATHOLOGIST WIG COMBER ANA HURT M.D. Performed By: #### L IPID, CBC ####[place] [id number] [place] [id number] [facility] Basophils/100 WBC (Bld) 0.5 % Normal . [facility] Comment on above: Performed By: #### L IPID, CBC ####[place] [id number] [place] [id number] [facility] Eosinophils (Bld) [#/Vol] 0.2 10*3/uL Normal 0.0-0.45 [facility] Comment on above: Performed By: #### L IPID, CBC ####[place] [id number] [facility] Eosinophils/100 WBC (Bld) 3.9 % Normal . [facility] Comment on above: Performed By: #### L IPID, CBC ####[place] [id number] [facility] Erythrocyte distribution width (RBC) [Ratio] 14.6 % Normal 12.0-14.8 [facility] Comment on above: Performed By: #### L IPID, CBC ####[place] [id number] [facility] Hematocrit (Bld) [Volume fraction] 40.3 % Normal 38.8-50.0 [facility] Comment on above: Performed By: #### L IPID, CBC ####[place] [id number] [facility] Hemoglobin (Bld) [Mass/Vol] 13.3 g/dL Normal 13.0-17.0 [facility] Comment on above: Performed By: #### L IPID, CBC ####[address] Lymphocytes (Bld) [#/Vol] 1.1 10*3/uL Normal 1.00-4.8 [facility] Comment on above: Performed By: #### L IPID, CBC ####[address] Lymphocytes/100 WBC (Bld) 19.3 % Normal . [facility] Comment on above: Performed By: #### L IPID, CBC ####[address] MCH (RBC) [Entitic mass] 30.0 pg Normal 27.5-35.2 [facility] Comment on above: Performed By: #### L IPID, CBC ####[address] MCV (RBC) [Entitic vol] 91.2 fL Normal 83.5-101 [facility] Comment on above: Performed By: #### L IPID, CBC ####[address] Mean Corpuscular HGB Conc 32.9 g/dL Normal 32.5-35.6 [facility] Comment on above: Performed By: #### L IPID, CBC ####[address] Monocytes (Bld) [#/Vol] 0.5 10*3/uL Normal 0.0-0.8 [facility] Comment on above: Performed By: #### L IPID, CBC ####[address] Monocytes/100 WBC (Bld) 8.7 % Normal . [facility] Comment on above: Performed By: #### L IPID, CBC ####[address] Neutrophils (Bld) [#/Vol] 3.8 10*3/uL Normal 1.8-7.7 [facility] Comment on above: Performed By: #### L IPID, CBC ####[address] Neutrophils/100 WBC (Bld) 67.6 % Normal . [facility] Comment on above: Performed By: #### L IPID, CBC ####[address] NRBC% 0.1 /100{WBC} Normal 0-0.5 [facility] Comment on above: Performed By: #### L IPID, CBC ####[address] Platelet mean volume (Bld) [Entitic vol] 9.7 fL Normal 6.6-10.1 [facility] Comment on above: Performed By: #### L IPID, CBC ####[address] Platelets (Bld) [#/Vol] 173 10*3/uL Normal 150-450 [facility] Comment on above: Performed By: #### L IPID, CBC ####[address] RBC (Bld) [#/Vol] 4.42 10*6/uL Normal 3.90-5.60 [facility] Comment on above: Performed By: #### L IPID, CBC ####[address] WBC (Bld) [#/Vol] 5.6 10*3/uL Normal 4.1-10.5 [facility] Comment on above: Performed By: #### L IPID, CBC ####[address] Comprehensive Metabolic Pane ata 01-09-2023 Albumin [Mass/Vol] 4.2 g/dL Normal 3.5-5.7 [facility] Comment on above: Order Comment: PT FA STED 12 HOURS Performed By: #### C MP ####[place] [id number] [place] [address] [facility] Albumin/Globulin [Mass ratio] 1.6 {ratio} Normal [facility] Comment on above: Order Comment: PT FA STED 12 HOURS Performed By: #### C MP ####[place] [address] [place] [address] [facility] ALP [Catalytic activity/Vol] 66 U/L Normal 34-104 [facility] Comment on above: Order Comment: PT FA STED 12 HOURS Result Comment: PERF ORMED BY: [facility] [address] [place] [id number] PATHOLOGIST WIG COMBER ANA HURT M.D. Performed By: #### C MP ####[address] [address] [facility] ALT [Catalytic activity/Vol] 12 U/L Normal 7-52 [facility] Comment on above: Order Comment: PT FA STED 12 HOURS Performed By: #### C MP ####[place] [address] [place] [address] [facility] Anion gap [Moles/Vol] 9.8 mmol/L Normal 6.0-15.0 [facility] Comment on above: Order Comment: PT FA STED 12 HOURS Performed By: #### C MP ####[address] [address] [facility] AST [Catalytic activity/Vol] 13 U/L Normal 13-39 [facility] Comment on above: Order Comment: PT FA STED 12 HOURS Performed By: #### C MP ####[place] [address] [place] [address] [facility] Bilirubin [Mass/Vol] 0.3 mg/dL Normal 0.3-1.0 [facility] Comment on above: Order Comment: PT FA STED 12 HOURS Performed By: #### C MP ####[place] [address] [place] [address] [facility] Calcium [Mass/Vol] 9.2 mg/dL Normal 8.6-10.3 [facility] Comment on above: Order Comment: PT FA STED 12 HOURS Performed By: #### C MP ####[place] [address] [place] [address] [facility] Chloride [Moles/Vol] 109 mmol/L High 98-107 [facility] Comment on above: Order Comment: PT FA STED 12 HOURS Performed By: #### C MP ####[address] [address] [facility] CO2 [Moles/Vol] 26.1 mmol/L Normal 21.0-31.0 [facility] Comment on above: Order Comment: PT FA STED 12 HOURS Performed By: #### C MP ####[place] [id number] [facility] Creatinine [Mass/Vol] 1.80 mg/dL High 0.70-1.30 [facility] Comment on above: Order Comment: PT FA STED 12 HOURS Performed By: #### C MP ####[place] [id number] [facility] GFR/1.73 sq M.predicted MDRD (S/P/Bld) [Vol rate/Area] 38.289 mL/min/{1.73_m2} [facility] Comment on above: Order Comment: PT FA STED 12 HOURS Performed By: #### C MP ####[place] [id number] [facility] Globulin (S) [Mass/Vol] 2.7 g/dL [facility] Comment on above: Order Comment: PT FA STED 12 HOURS Performed By: #### C MP ####[place] [id number] [facility] Glucose [Mass/Vol] 114 mg/dL High 70-100 [facility] Comment on above: Order Comment: PT FA STED 12 HOURS Result Comment: [place] om Glucose Reference Range is dependent on time and content of last meal. Glucose of more than 200 mg/dL in a nonstressed, ambulatory subject supports the diagnosis of Diabetes Mellitus. ADA recommended reference range Performed By: #### C MP ####[place] [id number] [facility] Potassium [Moles/Vol] 4.9 mmol/L Normal 3.5-5.1 [facility] Comment on above: Order Comment: PT FA STED 12 HOURS Performed By: #### C MP ####[address] [address] [place] [address] [facility] Protein [Mass/Vol] 6.9 g/dL Normal 6.4-8.9 [facility] Comment on above: Order Comment: PT FA STED 12 HOURS Performed By: #### C MP ####[address] [address] [place] [address] [facility] Sodium [Moles/Vol] 140 mmol/L Normal 136-145 [facility] Comment on above: Order Comment: PT FA STED 12 HOURS Performed By: #### C MP ####[address] [address] [facility] Urea nitrogen [Mass/Vol] 34 mg/dL High 7-25 [facility] Comment on above: Order Comment: PT FA STED 12 HOURS Performed By: #### C MP ####[address] [address] [facility] Creatinine [Mass/volume] in Serum or PlasmaOrdered By: Shaikh Dotty on 01-09-2023 Creatinine [Mass/Vol] 1.80 mg/dL 0.70-1.30 [facility] Eosinophils Auto (Bld) [#/Vo l]Ordered By: Shaikh Dotty on 01-09-2023 Eosinophils (Bld) [#/Vol] 0.2 10*3/uL 0.0-0.45 [facility] Eosinophils/100 WBC Auto (Bl d)Ordered By: Shaikh Dotty on 01-09-2023 Eosinophils/100 WBC (Bld) 3.9 % . [facility] Erythrocyte distribution wid th Auto (RBC) [Ratio]Ordered By: Shaikh Dotty on 01-09-2023 Erythrocyte distribution width (RBC) [Ratio] 14.6 % 12.0-14.8 [facility] Globulin Calc (S) [Mass/Vol] Ordered By: Shaikh Dotty on 01-09-2023 Globulin (S) [Mass/Vol] 2.7 g/dL [facility] Glucose [Mass/volume] in Ser um or PlasmaOrdered By: Shaikh Dotty on 01-09-2023 Glucose [Mass/Vol] 114 mg/dL 70-100 [facility] Comment on above: ADA recommended refe rence rangeRandom Glucose Reference Range is dependent on time and content of last meal. Glucose of more than 200 mg/dL in a nonstressed, ambulatory subject supports the diagnosis of Diabetes Mellitus. Hematocrit Auto (Bld) [Volum e fraction]Ordered By: Shaikh Dotty on 01-09-2023 Hematocrit (Bld) [Volume fraction] 40.3 % 38.8-50.0 [facility] Hemoglobin [Mass/volume] in BloodOrdered By: Shaikh Dotty on 01-09-2023 Hemoglobin (Bld) [Mass/Vol] 13.3 g/dL 13.0-17.0 [facility] Leukocytes [#/volume] correc diana for nucleated erythrocytes in Blood by Automated counOrdered By: Shaikh Dotty on 01-09-2023 WBC corrected for nucl RBC Auto (Bld) [#/Vol] 5.6 10*3/uL 4.1-10.5 [facility] Lipid Panelon 01-09-2023 Cholesterol [Mass/Vol] 178 mg/dL Normal 140-200 [facility] Comment on above: Order Comment: PT FA STED 12 HOURS Result Comment: Chol less than 200 mg/dl low risk Chol 201-239 mg/dl borderline risk Chol 240 mg/dl and greater high risk Performed By: #### L IPID, CBC ####[facility] [id number] [id number] [facility] Cholesterol in HDL [Mass/Vol] 31 mg/dL Normal 23-92 [facility] Comment on above: Order Comment: PT FA STED 12 HOURS Result Comment: HDL CHOL ATP-III CLASSIFICATION Cardiovascular Risk HDL > or equal to 60 mg/dL LOW HDL < 40 mg/dL HIGH Performed By: #### L IPID, CBC ####[facility] Cholesterol.total/Chol esterol in HDL [Mass ratio] 5.7 {ratio} Normal <5.0 [facility] Comment on above: Order Comment: PT FA STED 12 HOURS Result Comment: PERF ORMED BY: [facility] [address] [place] [address] PATHOLOGIST WIG COMBER ANA HURT M.D. Performed By: #### L IPID, CBC ####[place] [address] LDL Cholesterol,Calculated 115 mg/dL High 0-100 [facility] Comment on above: Order Comment: PT FA STED 12 HOURS Result Comment: LDL ATP III CLASSIFICATION LDL less than 100 mg/dL Optimal LDL 100-129 mg/dL Near or above optimal LDL 130-159 mg/dL Borderline high LDL 160-189 mg/dL High LDL greater than 189 mg/dL Very high Performed By: #### L IPID, CBC ####[address] Triglyceride w/Reflex 162 mg/dL High 0-149 [facility] Comment on above: Order Comment: PT FA STED 12 HOURS Result Comment: TRIG ATP III CLASSIFICATION TRIG less than 150 mg/dL Normal TRIG 150-199 mg/dL Borderline high TRIG 200-500 mg/dL High TRIG greater than 500 mg/dL Very high Standard traceable to the Center for Disease Conrtrol and Prevention (CDC) test method. Performed By: #### L IPID, CBC ####[address] VLDL CHOLESTEROL 32 mg/dL Normal [facility] Comment on above: Order Comment: PT FA STED 12 HOURS Performed By: #### L IPID, CBC ####[address] Lymphocytes Auto (Bld) [#/Vo l]Ordered By: Shaikh Dotty on 01-09-2023 Lymphocytes (Bld) [#/Vol] 1.1 10*3/uL 1.00-4.8 [facility] Lymphocytes/100 WBC Auto (Bl d)Ordered By: Shaikh Dotty on 01-09-2023 Lymphocytes/100 WBC (Bld) 19.3 % . [facility] MCH Auto (RBC) [Entitic mass ]Ordered By: Shaikh Dotty on 01-09-2023 MCH (RBC) [Entitic mass] 30.0 pg 27.5-35.2 [facility] MCHC Auto (RBC) [Mass/Vol]Or dered By: Shaikh Dotty on 01-09-2023 MCHC (RBC) [Mass/Vol] 32.9 g/dL 32.5-35.6 [facility] MCV Auto (RBC) [Entitic vol] Ordered By: Shaikh Dotty on 01-09-2023 MCV (RBC) [Entitic vol] 91.2 fL 83.5-101 [facility] Monocytes Auto (Bld) [#/Vol] Ordered By: Shaikh Dotty on 01-09-2023 Monocytes (Bld) [#/Vol] 0.5 10*3/uL 0.0-0.8 [facility] Monocytes/100 WBC Auto (Bld) Ordered By: Shaikh Dotty on 01-09-2023 Monocytes/100 WBC (Bld) 8.7 % . [facility] Neutrophils Auto (Bld) [#/Vo l]Ordered By: Shaikh Dotty on 01-09-2023 Neutrophils (Bld) [#/Vol] 3.8 10*3/uL 1.8-7.7 [facility] Neutrophils/100 WBC Auto (Bl d)Ordered By: Shaikh Dotty on 01-09-2023 Neutrophils/100 WBC (Bld) 67.6 % . [facility] No Panel InformationOrdered By: Shaikh Dotty on 01-09-2023 Estimated GFR (CKD-EPI) 38.289 mL/Min [facility] Creatinine Clearance (Chem N/A [facility] Nucleated erythrocytes [Pres ence] in Blood by Automated countOrdered By: Shaikh Dotty on 01-09-2023 Nucleated RBC Auto Ql (Bld) 0.1 /100{WBC} 0-0.5 [facility] Platelet mean volume Auto (B ld) [Entitic vol]Ordered By: Shaikh Dotty on 01-09-2023 Platelet mean volume (Bld) [Entitic vol] 9.7 fL 6.6-10.1 [facility] Platelets Auto (Bld) [#/Vol] Ordered By: Shaikh Dotty on 01-09-2023 Platelets (Bld) [#/Vol] 173 10*3/uL 150-450 [facility] Potassium [Moles/volume] in Serum or PlasmaOrdered By: Shaikh Dotty on 01-09-2023 Potassium [Moles/Vol] 4.9 mmol/L 3.5-5.1 [facility] Protein [Mass/volume] in Ser um or PlasmaOrdered By: Shaikh Dotty on 01-09-2023 Protein [Mass/Vol] 6.9 g/dL 6.4-8.9 [facility] RBC Auto (Bld) [#/Vol]Ordere d By: Shaikh Dotty on 01-09-2023 RBC (Bld) [#/Vol] 4.42 10*6/uL 3.90-5.60 [facility] Serum or plasma albumin/glob ulin mass ratioOrdered By: Shaikh Dotty on 01-09-2023 Albumin/Globulin [Mass ratio] 1.6 {ratio} [facility] Serum or plasma anion gap de terminationOrdered By: Shaikh Dotty on 01-09-2023 Anion gap [Moles/Vol] 9.8 mmol/L 6.0-15.0 [facility] Serum or plasma high density lipoprotein (HDL) cholesterol measurementOrdered By: Shaikh Dotty on 01-09-2023 Cholesterol in HDL [Mass/Vol] 31 mg/dL 23-92 [facility] Comment on above: HDL CHOL ATP-III CLA SSIFICATION Cardiovascular RiskHDL > or equal to 60 mg/dL LOWHDL < 40 mg/dL HIGH Serum or plasma total choles terol/high density lipoprotein (HDL) cholesterol mass ratOrdered By: Shaikh Dotty on 01-09-2023 Cholesterol.total/Chol esterol in HDL [Mass ratio] 5.7 {ratio} <5.0 [facility] Sodium [Moles/volume] in Ser um or PlasmaOrdered By: Shaikh Dotty on 01-09-2023 Sodium [Moles/Vol] 140 mmol/L 136-145 [facility] Triglyceride [Mass/volume] i n Serum or PlasmaOrdered By: Shaikh Dotty on 01-09-2023 Triglyceride [Mass/Vol] 162 mg/dL 0-149 [facility] Comment on above: TRIG ATP III CLASSIF ICATIONTRIG less than 150 mg/dL NormalTRIG 150-199 mg/dL Borderline highTRIG 200-500 mg/dL High TRIG greater than 500 mg/dL Very highStandard traceable to the Center for Disease Conrtrol and Prevention (CDC) test method. Urea nitrogen [Mass/volume] in Serum or PlasmaOrdered By: Shaikh Dotty on 01-09-2023 Urea nitrogen [Mass/Vol] 34 mg/dL 7-25 [facility] WBC Auto (Bld) [#/Vol]Ordere d By: Shaikh Dotty on 01-09-2023 WBC (Bld) [#/Vol] 5.6 10*3/uL 4.1-10.5 [facility] CNPNon 01-06-2023 CNPN Telephone (RADTSA) -- YESENIA BROUSSARD ([id number]) 1945 M Date Time Provider Department 01/06/23 Hyun NAZARIO During your visit today, we recorded the following information about you: Livier Barrera RN 01/06/2023 8:17 AM Signed Please sign pended new order for Lumbar Spine MRI as it needs to state that it needs to be done with anesthesia. Thank you Livier Barrera RN Allergies As of Date: 01/06/2023 (No Known Allergies) Date Reviewed: 11/19/2022 Reviewed by: Bhumika Betts APRN.CELL GENETICIST - Fully Assessed Reason for Visit: Orders [681] Primary Visit Diagnosis:Spinal stenosis of lumbar region, unspecified whether neurogenic claudication present [M48.061] Order(s):MRI LUMBAR SPINE WO/W IVCON [[id number]] Order #: [id number] FUTURE iv contrast (will be provided with radiology test)MRI LSP Inject, intravenously, once for 1 dose. No IV access, insert saline lock prior to the beginning of sedation, infusion, injection of imaging exam. Discontinue saline lock post exam. If Pt. has a central line or IVAD, may access for administration according to line specific nursing protocol. Once exam is complete flush line and de-access according to line specific nursing protocol in the MR contrast administration guidelines link.Disp: 1 EachRfl: 0 Prescriptions as of 01/06/2023 - iv contrast (will be provided with radiology test) MRI LSP Inject, intravenously, once for 1 dose. No IV access, insert saline lock prior to the beginning of sedation, infusion, injection of imaging exam. Discontinue saline lock post exam. If Pt. has a central line or IVAD, may access for administration according to line specific nursing protocol. Once exam is complete flush line and de-access according to line specific nursing protocol in the MR contrast administration guidelines link. - Terazosin HCl (HYTRIN) 10 mg capsule - aspirin 81 mg cap Take by mouth. - pravastatin (PRAVACHOL) 10 mg tablet pravastatin 10 mg tablet - atenolol (TENORMIN) 50 mg tablet atenolol 50 mg tablet - lisinopril (ZESTRIL, PRINIVIL) 20 mg tablet q 24 HR. - HYDROcodone-acetaminophen (NORCO) 5-325 mg per tablet TAKE 1 TABLET BY MOUTH TWICE DAILY NEEDED FOR LUMBAR RADICULOPATHY - amLODIPine (NORVASC) 10 mg tablet amlodipine 10 mg tablet - baclofen (LIORESAL) 10 mg tablet baclofen 10 mg tablet - pregabalin (LYRICA) 50 mg capsule Take 50 mg by mouth twice daily. Problem List As Of Date 01/06/2023 Noted Resolved Prostate cancer (HCC) [C61] 11/18/2022 Stage 3 chronic kidney disease (HCC) [N18.30] 11/19/2022 Prescriptions ordered this encounter Disp Refills Start End IV CONTRAST (RADIOLOGY PROCEDURE) 1 Ea* 0 01/06/2023 01/07/2023 Class: In Office Sig: MRI LSP Inject, intravenously, once for 1 dose. No IV access, insert saline lock prior to the beginning of sedation, infusion, injection of imaging exam. Discontinue saline lock post exam. If Pt. has a central line or IVAD, may access for administration according to line specific nursing protocol. Once exam is complete flush line and de-access according to line specific nursing protocol in the MR contrast administration guidelines link. Encounter Status:Closed by Hyun NAZARIO on 01/06/23 [facility] Rena 01-05-2023 STEPH Telephone (IRRFV) -- YESENIA BROUSSARD ([id number]) 1945 M Date Time Provider Department 01/05/23 EVELYN CHAMBERLAIN IRRFV During your visit today, we recorded the following information about you: Evelyn Chamberlain RN 01/05/2023 5:05 PM Signed Spoke to patient's . Explained differences between anxiolysis and full anesthesia. Per patient's , patient needs full anesthesia-will not tolerate procedure with anxiolysis alone. Communicated to office that new order needs to be placed for MRI with anesthesia, and will need to be scheduled at [facility]. Allergies As of Date: 01/05/2023 (No Known Allergies) Date Reviewed: 11/19/2022 Reviewed by: Bhumika Betts APRN.CELL GENETICIST - Fully Assessed Reason for Visit: Patient Question [4154] Appointment [186] Prescriptions as of 01/05/2023 - Terazosin HCl (HYTRIN) 10 mg capsule - aspirin 81 mg cap Take by mouth. - pravastatin (PRAVACHOL) 10 mg tablet pravastatin 10 mg tablet - atenolol (TENORMIN) 50 mg tablet atenolol 50 mg tablet - lisinopril (ZESTRIL, PRINIVIL) 20 mg tablet q 24 HR. - HYDROcodone-acetaminophen (NORCO) 5-325 mg per tablet TAKE 1 TABLET BY MOUTH TWICE DAILY NEEDED FOR LUMBAR RADICULOPATHY - amLODIPine (NORVASC) 10 mg tablet amlodipine 10 mg tablet - baclofen (LIORESAL) 10 mg tablet baclofen 10 mg tablet - pregabalin (LYRICA) 50 mg capsule Take 50 mg by mouth twice daily. Problem List As Of Date 01/05/2023 Noted Resolved Prostate cancer (HCC) [C61] 11/18/2022 Stage 3 chronic kidney disease (HCC) [N18.30] 11/19/2022 Encounter Status:Closed by EVELYN CHAMBERLAIN on 01/05/23 [facility] Consultation Noteon 12-11-19 Consultation Note [id number]#[id number]:127 [facility] Lab Reportson 12-10-2022 Lab Reports [id number]#[id number]:127 [facility] Screenson 12-04-2022 Screens [id number]#[id number]:127 [facility] Screens [id number]:127 [facility] Ambulatory Visit Summaryon 0 12-03-2022 Ambulatory Visit Summary YESENIA BROUSSARD :1945 Visit Date:12/03/2022 Ambulatory Visit Instructions Your Diagnosis Recurrent UTI Prostate cancer BPH with urinary obstruction Nocturia Your Care Team Attending Physician - CLAIRE JAMES PA-C Primary Care Physician - SHAIKH STORM This Is Your Medications List Contact prescribing physician if questions or concerns acetaminophen-hydrocodone ([place] 5/325 Tab) amlodipine (amLODIPine 5 mg Tab) aspirin (aspirin 81 mg oral capsule) atenolol (atenolol 50 mg Tab) baclofen (baclofen 10 mg Tab) lisinopril (lisinopril 20 mg Tab) pravastatin (pravastatin 10 mg Tab) pregabalin (Lyrica 25 mg Cap) terazosin (terazosin 10 mg Cap) Procedures Performed Mixed beam EBRT (external beam radiation therapy) (04/23/2022), Transurethral resection of prostate (06/06/2021), Cataracts, Colonoscopy, Endarterectomy, Procedure on back. Discharge Vitals Heart Rate (Peripheral) 69 Respiratory Rate 16 Blood Pressure 138/76 Height 178 cm Height 70 in Weight 93 kg Weight 204.6 lb BMI 29.35 What to do next Scheduled Follow-Up Appointments Thursday 9:15 AM EDT With: CLAIRE JAMES PA-C Where: [facility] Patient Educationon 12-04-19 Patient Education Urology Urinary Frequency, Adult Urinary frequency means urinating more often than usual. You may urinate every 1?2 hours even though you drink a normal amount of fluid and do not have a bladder infection or condition. Although you urinate more often than normal, the total amount of urine produced in a day is normal. With urinary frequency, you may have an urgent need to urinate often. The stress and anxiety of needing to find a bathroom quickly can make this urge worse. This condition may go away on its own, or you may need treatment at home. Home treatment may include bladder training, exercises, taking medicines, or making changes to your diet. Follow these instructions at home: Bladder health Your health care provider will tell you what to do to improve bladder health. You may be told to: ? Keep a bladder diary. Keep track of: ? What you eat and drink. ? How often you urinate. ? How much you urinate. ? Follow a bladder training program. This may include: ? Learning to delay going to the bathroom. ? Double urinating, also called voiding. This helps if you are not completely emptying your bladder. ? Scheduled voiding. ? Do Kegel exercises. Kegel exercises strengthen the muscles that help control urination, which may help the condition. Eating and drinking Follow instructions from your health care provider about eating or drinking restrictions. You may be told to: ? Avoid caffeine. ? Drink fewer fluids, especially alcohol. ? Avoid drinking in the evening. ? Avoid foods or drinks that may irritate the bladder. These include coffee, tea, soda, artificial sweeteners, citrus, tomato-based foods, and chocolate. ? Eat foods that help prevent or treat constipation. Constipation can make urinary frequency worse. You may need to take these actions to prevent or treat constipation: ? Drink enough fluid to keep your urine pale yellow. ? Take mlkl-ovb-qlaqtsh or prescription medicines. ? Eat foods that are high in fiber, such as beans, whole grains, and fresh fruits and vegetables. ? Limit foods that are high in fat and processed sugars, such as fried or sweet foods. General instructions ? Take rkvd-pek-lrtvmfc and prescription medicines only as told by your health care provider. ? Keep all follow-up visits. This is important. Contact a health care provider if: ? You start urinating more often. ? You feel pain or irritation when you urinate. ? You notice blood in your urine. ? Your urine looks cloudy. ? You develop a fever. ? You begin vomiting. Get help right away if: ? You are unable to urinate. Summary ? Urinary frequency means urinating more often than usual. With urinary frequency, you may urinate every 1?2 hours even though you drink a normal amount of fluid and do not have a bladder infection or other bladder condition. ? Your health care provider may recommend that you keep a bladder diary, follow a bladder training program, or make dietary changes. ? If told by your health care provider, do Kegel exercises to strengthen the muscles that help control urination. ? Take wcxn-jdl-zxwwqsc and prescription medicines only as told by your health care provider. ? Contact a health care provider if your symptoms do not improve or get worse. This information is not intended to replace advice given to you by your health care provider. Make sure you discuss any questions you have with your health care provider. Document Revised: 12/21/2020 Document Reviewed: 12/21/2020 [employer] Patient Education ? 2022 [employer] [facility] Urology Office/Clinic Noteon 12-03-2022 Urology Office/Clinic Note Chief Complaint 1yr follow up HPI Staff PRW pt Last seen in our office 12/06/21 due to Prostate Cancer, BPH & Nocturia. Referred to Dr Nazario for Radiation consult. *Terazosin 10mg QD therapy. Per last encounter, 2mg QD, pt states one of his providers raised dosage to 10mg. Saw Dr Nazario 12/16/21. Decided on EBRT. EBRT completed 04/23/22 NEG C&S 10/28/22- ordered by PCP due to frequency PSA 11/17/22- 0.50 IPSS 15 KAILYN 0 Increased frequency. Day and night. Night time is more bothersome. 4-7x/night. For the past couple of yrs. 10mg Terazosin did help for the first 1-2wks. Then returned. Now taking 2mg & 10mg, Still getting up at least 4x/night. Occasional pain during urination. Only at the start of stream. Feels empty most of the time, occasional has double voids if he sits for a while. Denies loss of bladder control. Denies complications after radiation. Is concerned with getting up at night. PVR 61ml History of Present Illness staff HPI reviewed and agree. Review of Systems PHQ Score Initial Depression Screen Score: 0 no fever, chills, malaise, myalgia. no rash/lesions. no chest pain, palpitations, or SOB. no abdominal pain, nausea, vomiting. no unilateral calf swelling, redness, pain Physical Exam Vitals & Measurements HR: 69(Peripheral) RR: 16 BP: 138/76 HT: 70 in HT: 178 cm WT: 93 kg WT: 204.6 lb BMI: 29.35 General: nontoxic, NAD Mouth: moist mucosa Lungs: normal respiratory effort Cardio: regular rate, good distal perfusion Abdomen: nondistended, no suprapubic distention or tenderness, no CVA tenderness Neurologic: Grossly normal Skin: No rashes or suspicious lesions Assessment/Plan 1. Nocturia (R35.1: Nocturia) S/p TURP 06/06/21. S/p EBRT 03/22-04/22. IPSS 15, QoL 3. most bothersome sx is nocturia x4-7. chronic exhaustion. had initial improvement in sx following TURP. then seemed to not last. had initial improvement w Terazosin 10mg. then seemed to wear off. added 2mg Terazosin and same thing - initial improvement then seemed to wear off/not help any more. Will continue the alpha miroslava for now - Terazosin 10mg and 2mg QD - bc I don't want to change too many things at once. Discussed medication management including anticholinergics and Myrbetriq. Myrbetriq is often preferable due to lower side effect profile, but most insurances don't cover it without trying anticholinergics first. Therefore we will start with Oxybutynin. Pt will start with lowest daily dose and slowly titrate up as pt tolerates. I explained the most common side effects are dry mouth, dry eyes, and constipation. We discussed OTC options to help with these side effects. Pt will stop medication and call office if side effects become intolerable. We did discuss that there is a documented potential side effect of mental status changes/confusion in the elderly, but that this risk is quite low. Pt and I agree that potential benefit outweigh risk at this time. Sent to pharmacy on file. Discussed the medication side effects, and the patient will monitor closely for these, as well as for symptom improvement. If severe side effects occur, the medication should be stopped and the office notified. If does well on anticholinergic, we can try weaning down/off the alpha miroslava. -continue terazosin 10mg + 2mg daily -start oxybutynin 5mg IR qhs -return 4-6wks to reassess 2. Prostate cancer (C61: Malignant neoplasm of prostate) Pt. had a neg TRUS/bx in 04/21 due to a hard nodule at rt. base to mid. S/p TURP 06/06/21, G7 (3+4), grade group 2. 39/104 chips involved. 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 Saw Dr Nazario 12/16/21. Decided on EBRT. Pt received radiation 03/18/22 - 04/23/22. Continues to follow w their office. PSA 04/17/21 - 9.95 11/04/21 - 3.73 05/09/22 - 2.81 11/17/22 - 0.50 3. BPH with urinary obstruction (N40.1: Benign prostatic hyperplasia with lower urinary tract symptoms) s/p TURP TURP 06/06/21. see #1. Orders: oxybutynin, 5 mg = 1 tab(s), Oral, Bedtime, # 30 tab(s), Refills(s) 2, Pharmacy: [id number], 178, cm, 12/03/22 15:00:00 EDT, Height/Length Dosing, 93, kg, 12/03/22 15:00:00 EDT, Weight Dosing Measure Post Void residual urine and/or bladder capacity by US- non-imaging [id number] Follow-up With When Contact Information CLAIRE JAMES PA-C, URL In 5 weeks [address] [place] [address] Additional Instructions: Patient Education Urinary Frequency, Adult Documentation recorded by the scribelbert Lincoln accurately reflects the services(s) I performed and decisions made by me. Authenticated by Claire James PA-C on 12/03/2022 16:29:26. I, Ave [place], personally scribed for Claire James PA-C on 12/03/2022 15:37:14. . Problem List/Past Medical History Ongoing Anxiety BPH with urinary obstruction Chronic pain disorder Chronic prostatitis Feel (more content not included)... Normal [facility] Comment on above: Result Comment: Elec tronically Signed By: CLAIRE JAMES PA-C\.br\Date and Time Signed: 12/03/22 16:29 EDT\.br\Electronically Co-Signed By: Ave Lincoln\.br\Date and Time Co-Signed: 12/03/22 15:37 EDT CNOVon 11-18-2022 CNOV Office Visit (RADTSA ) -- YESENIA BROUSSARD ([id number]) 1945 Date Time Provider Department 11/18/22 1:15 PM Hyun NAZARIO During your visit today, we recorded the following information about you: Temperature Pulse Respiration Blood pressure 98.7 degrees 56/minute 18/minute 112/54 Weight 92.5 kg Hyun Jose Nazario MD 11/19/2022 9:23 AM Signed Radiation Oncology - Follow Up Note PATIENT NAME: Yesenia Broussard PATIENT DIAGNOSIS: Prostate adenocarcinoma, initial PSA 9.95, biopsy [place] score 3 + 4 = 7 (grade group 2), clinical stage T1b, N0, M0, stage IIB [T1-T2, N0, M0, PSA <20, GG 2] (AJCC 8th ed.), s/p TURP. Prostate cancer (C61), 2019 NCCN Risk Group: Unfavorable Intermediate Risk Group RADIATION SUMMARY: DATES OF TREATMENT: 03/18/2022- 04/23/2022 AREA TREATED: Pelvis and Prostate DELIVERED DOSE: Area: pelvis/ prostate 7000 cGy in 28 fractions, 2 Arcs, IMRT, 10 MV with daily CBCT TOTAL: 7000 cGy in 28 fractions ELAPSED TIME: 36 days. INTERVAL HISTORY: Overall doing fairly well. Is having some continued issues with nocturia. Denies any obstructive issues. Less frequency issues during the day. Also having continued lower back pain with radicular component to both legs. PSA HISTORY: PSA (ng/mL) Date Value 11/17/2022 0.50 PSA. (no units) Date Value 05/09/2022 2.810 ALLERGIES No Known Allergies Terazosin HCl (HYTRIN) 10 mg capsule aspirin 81 mg cap Take by mouth. pravastatin (PRAVACHOL) 10 mg tablet pravastatin 10 mg tablet atenolol (TENORMIN) 50 mg tablet atenolol 50 mg tablet lisinopril (ZESTRIL, PRINIVIL) 20 mg tablet q 24 HR. HYDROcodone-acetaminophen (NORCO) 5-325 mg per tablet TAKE 1 TABLET BY MOUTH TWICE DAILY NEEDED FOR LUMBAR RADICULOPATHY amLODIPine (NORVASC) 10 mg tablet amlodipine 10 mg tablet baclofen (LIORESAL) 10 mg tablet baclofen 10 mg tablet pregabalin (LYRICA) 50 mg capsule Take 50 mg by mouth twice daily. REVIEW OF SYSTEMS: D/N = 5-6/2-4 Hematuria: none Dysuria: none Incontinence: Yes Urgency: mild Catheter use: none Medications to aid urination: y - Total AUA Score: 27 Bowel movement frequency: 1/day Bowel movement quality: normal Blood per rectum: none PHYSICAL EXAM: BP 112/54 Pulse (!) 56 Temp 37.1 ?C (98.7 ?F) Resp 18 Wt 92.5 kg (204 lb) SpO2 96% BMI 29.91 kg/m? KPS: 90 General Appearance: Alert and oriented. No acute distress. Rectal exam is deferred. ASSESSMENT/PLAN: Prostate adenocarcinoma, initial PSA 9.95, biopsy [place] score 3 + 4 = 7 (grade group 2), clinical stage T1b, N0, M0, stage IIB [T1-T2, N0, M0, PSA <20, GG 2] (AJCC 8th ed.), s/p definitive radiation completed April 2022. 1. Prostate cancer doing well with excellent PSA response. He is having continued urgency related symptoms. He has continued follow-up with urology. Otherwise plan to see patient back in 6 months repeat PSA. 2. Spinal stenosis, lumbar spine. Patient told by family members physician that he needs to be evaluated by neurosurgery. Consult and repeat MRI order placed. Signed by: Hyun Nazario MD cc: Shaikh [address] [place] [address] Livier Barrera RN 11/19/2022 9:23 AM Signed AUA 21 Livier Barrera RN Allergies As of Date: 11/18/2022 (No Known Allergies) Date Reviewed: 05/13/2022 Reviewed by: Diane Parada LPN - Fully Assessed Reason for Visit: Prostate Cancer [590] Primary Visit Diagnosis:History of prostate cancer [Z85.46] Other Visit Diagnoses:Spinal arthritis [M47.819] Spinal stenosis of lumbar region, unspecified whether neurogenic claudication present [M48.061] Order(s):PSA/PROSTSPECAG DIAG [SQPSA] Order #: [id number] FUTURE CONSULT TO NEUROSURGERY [[id number]] Order #: [id number]: 1 FUTURE MRI LUMBAR SPINE WO/W IVCON [[id number]] Order #: [id number] FUTURE iv contrast (will be provided with radiology test)MRI LSP Inject, intravenously, once for 1 dose. No IV access, insert saline lock prior to the beginning of sedation, infusion, injection of imaging exam. Discontinue saline lock post exam. If Pt. has a central line or IVAD, may access for administration according to line specific nursing protocol. Once exam is complete flush line and de-access according to line specific nursing protocol in the MR contrast administration guidelines link.Disp: 1 EachRfl: 0 Prescriptions as of 11/19/2022 - iv contrast (will be provided with radiology test) MRI LSP Inject, intravenously, once for 1 dose. No IV access, insert saline lock prior to the beginning of sedation, infusion, injection of imaging exam. Discontinue saline lock post exam. If Pt. has a central line or IVAD, may access for administration according to line specific nursing protocol. Once exam is complete flush line and de-access according to line specific nu (more content not included)... Normal [facility] CNOVSPon 11-18-2022 CNOVSP Visit (SP) Office (H EMASA) -- YESENIA BROUSSARD ([id number]) 1945 M Date Time Provider Department 11/18/22 1:30 PM BHUMIKA BETTS During your visit today, we recorded the following information about you: Nadja Guardado 11/18/2022 2:34 PM Signed Clinical questionnaires incomplete due to Patient was roomed by provider Bhumika Betts APRN.CNP 11/19/2022 12:26 PM Signed Yesenia Broussard was seen and examined by Dr. Nazario. Overall, he is doing well. He complains of frequent urination mainly during the night. He plans to follow-up with his urologist regarding this concern. He denies any problems with his bowels. No diarrhea or constipation. He denies any unusual pain. Patient was given treatment summary and survivorship care plan for prostate cancer. Bhumika Tani, [employer]ER [employer]ETICIST Allergies As of Date: 11/18/2022 (No Known Allergies) Date Reviewed: 05/13/2022 Reviewed by: Diane Parada LPN - Fully Assessed Visit Diagnoses:Prostate cancer (HCC) [C61] Stage 3 chronic kidney disease, unspecified whether stage 3a or 3b CKD (HCC) [N18.30] Prescriptions as of 11/19/2022 - iv contrast (will be provided with radiology test) MRI LSP Inject, intravenously, once for 1 dose. No IV access, insert saline lock prior to the beginning of sedation, infusion, injection of imaging exam. Discontinue saline lock post exam. If Pt. has a central line or IVAD, may access for administration according to line specific nursing protocol. Once exam is complete flush line and de-access according to line specific nursing protocol in the MR contrast administration guidelines link. - Terazosin HCl (HYTRIN) 10 mg capsule - aspirin 81 mg cap Take by mouth. - pravastatin (PRAVACHOL) 10 mg tablet pravastatin 10 mg tablet - atenolol (TENORMIN) 50 mg tablet atenolol 50 mg tablet - lisinopril (ZESTRIL, PRINIVIL) 20 mg tablet q 24 HR. - HYDROcodone-acetaminophen (NORCO) 5-325 mg per tablet TAKE 1 TABLET BY MOUTH TWICE DAILY NEEDED FOR LUMBAR RADICULOPATHY - amLODIPine (NORVASC) 10 mg tablet amlodipine 10 mg tablet - baclofen (LIORESAL) 10 mg tablet baclofen 10 mg tablet - pregabalin (LYRICA) 50 mg capsule Take 50 mg by mouth twice daily. Problem List As Of Date 11/18/2022 Noted Resolved Prostate cancer (HCC) [C61] 11/18/2022 Visit Notes: >> Nadja Gonzalez Nov 18, 2022 2:34 PM Status: Signed Clinical questionnaires incomplete due to Patient was roomed by provider Encounter Status:Closed by BHUMIKA BETTS on 11/19/22 [facility] Rena 11-18-2022 CNPN Telephone (NCCAP) -- YESENIA BROUSSARD ([id number]) 1945 M Date Time Provider Department 11/18/22 Hyun NAZARIO During your visit today, we recorded the following information about you: Kadi Cotton 11/18/2022 2:21 PM Signed Per [facility] Neurosurgery, a more recent MRI is required before scheduling the patient to be seen. They are requesting new MRI orders to be placed before completing consult. Kadi Cotton 11/19/2022 9:38 AM Signed Contacted patient to schedule MRI AND was informed by that patient is extremely claustrophobic AND needs sedation in order for MRI to be completed. This can only be completed at [facility] Main AND orders must be revised to reflect such. Thanks, Kadi Cotton 11/21/2022 11:36 AM Signed Patient has been scheduled AND notified of appointment. Kadi Cotton Allergies As of Date: 11/18/2022 (No Known Allergies) Date Reviewed: 05/13/2022 Reviewed by: Diane Parada LPN - Fully Assessed Reason for Visit: Referral Information [4063] Primary Visit Diagnosis:Spinal stenosis of lumbar region without neurogenic claudication [M48.061] Order(s):MRI LUMBAR SPINE WO/W IVCON [[id number]] Order #: [id number] FUTURE iv contrast (will be provided with radiology test)MRI LSP Inject, intravenously, once for 1 dose. No IV access, insert saline lock prior to the beginning of sedation, infusion, injection of imaging exam. Discontinue saline lock post exam. If Pt. has a central line or IVAD, may access for administration according to line specific nursing protocol. Once exam is complete flush line and de-access according to line specific nursing protocol in the MR contrast administration guidelines link.Disp: 1 EachRfl: 0 Prescriptions as of 11/21/2022 - iv contrast (will be provided with radiology test) MRI LSP Inject, intravenously, once for 1 dose. No IV access, insert saline lock prior to the beginning of sedation, infusion, injection of imaging exam. Discontinue saline lock post exam. If Pt. has a central line or IVAD, may access for administration according to line specific nursing protocol. Once exam is complete flush line and de-access according to line specific nursing protocol in the MR contrast administration guidelines link. - Terazosin HCl (HYTRIN) 10 mg capsule - aspirin 81 mg cap Take by mouth. - pravastatin (PRAVACHOL) 10 mg tablet pravastatin 10 mg tablet - atenolol (TENORMIN) 50 mg tablet atenolol 50 mg tablet - lisinopril (ZESTRIL, PRINIVIL) 20 mg tablet q 24 HR. - HYDROcodone-acetaminophen (NORCO) 5-325 mg per tablet TAKE 1 TABLET BY MOUTH TWICE DAILY NEEDED FOR LUMBAR RADICULOPATHY - amLODIPine (NORVASC) 10 mg tablet amlodipine 10 mg tablet - baclofen (LIORESAL) 10 mg tablet baclofen 10 mg tablet - pregabalin (LYRICA) 50 mg capsule Take 50 mg by mouth twice daily. Problem List As Of Date 11/18/2022 Noted Resolved Prostate cancer (HCC) [C61] 11/18/2022 Prescriptions ordered this encounter Disp Refills Start End IV CONTRAST (RADIOLOGY PROCEDURE) 1 Ea* 0 11/21/2022 11/22/2022 Class: In Office Sig: MRI LSP Inject, intravenously, once for 1 dose. No IV access, insert saline lock prior to the beginning of sedation, infusion, injection of imaging exam. Discontinue saline lock post exam. If Pt. has a central line or IVAD, may access for administration according to line specific nursing protocol. Once exam is complete flush line and de-access according to line specific nursing protocol in the MR contrast administration guidelines link. Encounter Status:Closed by Hyun NAZARIO on 11/21/22 Normal [facility] PSA SerPl-mCncon 11-17-2022 Prostate specific Ag [Mass/Vol] 0.50 ng/mL Normal <2.60 [facility] Comment on above: Order Comment: Speci men Type: BLOOD SPECIMENOrdering Facility: [facility] Address: [address] [place] [id number] Result Comment: Tota l PSA test methodology used is the Electrochemiluminescence Immunoassay by [employer]. Total PSA values by differing methodologies cannot be interchanged. Performed By: #### 2 857-1 ####[facility] LABCLIA [id number] [place] [address] [place] Lab Reportson 10-29-2022 Lab Reports [id number]:127 Normal Kun [facility] CULTURE URINEon 10-28-2022 CULTURE URINE Culture Observations : LIGHT GROWTH OF MIXED SKIN DANIELLE. NO POTENTIAL PATHOGENS SEEN. Normal [facility] Comment on above: Performed By: #### U RCX #### [facility] Laboratory [address] [address] [address] Leighann Chase 06-10-2022 CNPN Telephone (HEMASA) -- YESENIA BROUSSARD ([id number]) 1945 M Date Time Provider Department 06/10/22 CONSTANCE DURAND During your visit today, we recorded the following information about you: STEPHANIE Lange 06/10/2022 3:33 PM Signed SOCIAL WORK FOLLOW UP NOTE: [facility] Date of service:06/10/22 Yesenia Broussard is being seen for a follow up social work visit. Today's visit includes: spouse TOPICS ADDRESSED: finances PLAN: Communicate pertinent medical/psychosocial information to Cancer Center team and Continue follow up as needed Assigned KAROLINE listed in Care Team tab: Yes Patient's Nena called in with questions about a bill received from [facility]. Nena called the Customer Service line, but waited on hold with no assistance. KAROLINE contacted ONELIA Bhandari with this request. KAROLINE will remain available and will follow up as appropriate. ASHER Lange-Laney Allergies As of Date: 06/10/2022 (No Known Allergies) Date Reviewed: 05/13/2022 Reviewed by: Diane Parada LPN - Fully Assessed Reason for Visit: Social Work Services [507] Prescriptions as of 06/10/2022 - Terazosin HCl (HYTRIN) 10 mg capsule - aspirin 81 mg cap Take by mouth. - pravastatin (PRAVACHOL) 10 mg tablet pravastatin 10 mg tablet - atenolol (TENORMIN) 50 mg tablet atenolol 50 mg tablet - lisinopril (ZESTRIL, PRINIVIL) 20 mg tablet q 24 HR. - HYDROcodone-acetaminophen (NORCO) 5-325 mg per tablet TAKE 1 TABLET BY MOUTH TWICE DAILY NEEDED FOR LUMBAR RADICULOPATHY - amLODIPine (NORVASC) 10 mg tablet amlodipine 10 mg tablet - baclofen (LIORESAL) 10 mg tablet baclofen 10 mg tablet - pregabalin (LYRICA) 50 mg capsule Take 50 mg by mouth twice daily. Problem List As Of Date: 06/10/2022 (None) Encounter Status:Closed by CONSTANCE DURAND on 06/10/22 [facility] Rena 06-06-2022 [facility] YESENIA BROUSSARD ([id number]) 1945 M Date Time Provider Department 06/06/22 CONSTANCE DURAND During your visit today, we recorded the following information about you: STEPHANIE Lange 06/09/2022 9:43 AM Addendum SOCIAL WORK FOLLOW UP NOTE: [facility] Date of service:06/06/22 Yesenia Broussard is being seen for a follow up social work visit. Today's visit includes: spouse TOPICS ADDRESSED: community resources PLAN: Continue follow up as needed Assigned SW listed in Care Team tab: Yes Patient's Nena called in and left a VM. SW returned the call and left her a VM. Awaiting a call back. ASHER Lange-Laney Allergies As of Date: 06/06/2022 (No Known Allergies) Date Reviewed: 05/13/2022 Reviewed by: Diane Parada LPN - Fully Assessed Reason for Visit: Social Work Services [507] Prescriptions as of 06/09/2022 - Terazosin HCl (HYTRIN) 10 mg capsule - aspirin 81 mg cap Take by mouth. - pravastatin (PRAVACHOL) 10 mg tablet pravastatin 10 mg tablet - atenolol (TENORMIN) 50 mg tablet atenolol 50 mg tablet - lisinopril (ZESTRIL, PRINIVIL) 20 mg tablet q 24 HR. - HYDROcodone-acetaminophen (NORCO) 5-325 mg per tablet TAKE 1 TABLET BY MOUTH TWICE DAILY NEEDED FOR LUMBAR RADICULOPATHY - amLODIPine (NORVASC) 10 mg tablet amlodipine 10 mg tablet - baclofen (LIORESAL) 10 mg tablet baclofen 10 mg tablet - pregabalin (LYRICA) 50 mg capsule Take 50 mg by mouth twice daily. Problem List As Of Date: 06/06/2022 (None) Encounter Status:Closed by CONSTANCE DURAND on 06/09/22 Normal [facility] Bacteria Ur Culton 3 Bacteria identified Cx Nom (U) ORGANISM ID: 1 <10,000 CFU/ml Mixed microbiota No further workup. Mixed microbiota can be due to???urine???contamination with skin bacteria at time of collection or presence of a long-term urinary catheter. If a new culture is needed, please consider re-education of the patient on proper midstream collection technique or straight catheterization for???urine???collection. Normal [facility] Comment on above: Performed By: #### 6 30-4 ####[facility] LABCLIA [id number] [address] [place] OF [facility] CNOVon 06-05-2022 CNOV Office Visit (RADTSA ) -- YESENIA BROUSSARD ([id number]) 1945 M Date Time Provider Department 06/05/22 1:00 PM LAB/PORT RADT EVITA PATTON During your visit today, we recorded the following information about you: Kelly Hector 06/05/2022 12:41 PM Signed Back office UA test performed. Results entered in [employer] and doctor notified. Kelly Hector MA Allergies As of Date: 06/05/2022 (No Known Allergies) Date Reviewed: 05/13/2022 Reviewed by: Diane Parada LPN - Fully Assessed Primary Visit Diagnosis:Urinary tract infection without hematuria, site unspecified [N39.0] Prescriptions as of 06/05/2022 - Terazosin HCl (HYTRIN) 10 mg capsule - aspirin 81 mg cap Take by mouth. - pravastatin (PRAVACHOL) 10 mg tablet pravastatin 10 mg tablet - atenolol (TENORMIN) 50 mg tablet atenolol 50 mg tablet - lisinopril (ZESTRIL, PRINIVIL) 20 mg tablet q 24 HR. - HYDROcodone-acetaminophen (NORCO) 5-325 mg per tablet TAKE 1 TABLET BY MOUTH TWICE DAILY NEEDED FOR LUMBAR RADICULOPATHY - amLODIPine (NORVASC) 10 mg tablet amlodipine 10 mg tablet - baclofen (LIORESAL) 10 mg tablet baclofen 10 mg tablet - pregabalin (LYRICA) 50 mg capsule Take 50 mg by mouth twice daily. Problem List As Of Date: 06/05/2022 (None) Visit Notes: >> Kelly Hector [facility] Jun 05, 2022 12:40 PM Status: Signed Back office UA test performed. Results entered in [employer] and doctor notified. Kelly Hector MA Encounter Status:Closed by KELLY HECTOR on 06/05/22 Normal [facility] No Panel InformationOrdered By: Hyun Nazario on 05-09-2022 Prostate Specific Antigen Total 2.810 ng/mL 0.000-4.00 0 [facility] Basophils Auto (Bld) [#/Vol] Ordered By: Zeinab Justice on 04-23-2022 Basophils (Bld) [#/Vol] 0.0 10*3/uL 0.0-0.2 [facility] Basophils/100 WBC Auto (Bld) Ordered By: Zeinab Justice on 04-23-2022 Basophils/100 WBC (Bld) 0.5 % . [facility] Body fluid albumin measureme nt (mass/volume)Ordered By: Zeinab Justice on 04-23-2022 Albumin (Body fld) [Mass/Vol] 3.6 g/dL 3.2-5.5 [facility] Creatinine and Glomerular fi ltration rate.predicted panel (S/P/Bld)Ordered By: Zeinab Justice on 04-23-2022 Creatinine [Mass/Vol] 1.65 mg/dL 0.64-1.27 [facility] Eosinophils Auto (Bld) [#/Vo l]Ordered By: Zeinab Justice on 04-23-2022 Eosinophils (Bld) [#/Vol] 0.2 10*3/uL 0.0-0.45 [facility] Eosinophils/100 WBC Auto (Bl d)Ordered By: Zeinab Justice on 04-23-2022 Eosinophils/100 WBC (Bld) 3.4 % . [facility] Erythrocyte distribution wid th Auto (RBC) [Ratio]Ordered By: Zeinab Justice on 04-23-2022 Erythrocyte distribution width (RBC) [Ratio] 15.0 % 12.0-14.8 [facility] Estimated glomerular filtrat ion rate (GFR) non- AmericanOrdered By: Zeinab Justice on 04-23-2022 GFR/1.73 sq M.predicted among non-blacks MDRD (S/P/Bld) [Vol rate/Area] 41 mL/Min [facility] Globulin Calc (S) [Mass/Vol] Ordered By: Zeinab Justice on 04-23-2022 Globulin (S) [Mass/Vol] 2.6 g/dL [facility] Hematocrit Auto (Bld) [Volum e fraction]Ordered By: Zeinab Justice on 04-23-2022 Hematocrit (Bld) [Volume fraction] 38.0 % 38.8-50.0 [facility] Hemoglobin [Mass/volume] in BloodOrdered By: Zeinab Justice on 04-23-2022 Hemoglobin (Bld) [Mass/Vol] 12.3 g/dL 13.0-17.0 [facility] Laboratory - Hematology and Cell countsOrdered By: Zeinab Justice on 04-23-2022 Nucleated RBC/100 WBC (Bld) [Ratio] 0.2 % 0-0.5 [facility] Leukocytes [#/volume] in Blo od by Automated countOrdered By: Zeinab Justice on 04-23-2022 WBC (Bld) [#/Vol] 5.3 10*3/uL 4.5-11.0 [facility] Lymphocytes Auto (Bld) [#/Vo l]Ordered By: Zeinab Justice on 04-23-2022 Lymphocytes (Bld) [#/Vol] 0.9 10*3/uL 1.00-4.8 [facility] Lymphocytes/100 WBC Auto (Bl d)Ordered By: Zeinab Justice on 04-23-2022 Lymphocytes/100 WBC (Bld) 17.1 % . [facility] MCH Auto (RBC) [Entitic mass ]Ordered By: Zeinab Justice on 04-23-2022 MCH (RBC) [Entitic mass] 30.6 pg 27.5-35.2 [facility] MCHC Auto (RBC) [Mass/Vol]Or dered By: Zeinab Justice on 04-23-2022 MCHC (RBC) [Mass/Vol] 32.4 g/dL 32.5-35.6 [facility] MCV Auto (RBC) [Entitic vol] Ordered By: Zeinab Justice on 04-23-2022 MCV (RBC) [Entitic vol] 94.4 fL 83.5-101 [facility] Monocytes Auto (Bld) [#/Vol] Ordered By: Zeinab Justice on 04-23-2022 Monocytes (Bld) [#/Vol] 0.6 10*3/uL 0.0-0.8 [facility] Monocytes/100 WBC Auto (Bld) Ordered By: Zeinab Justice on 04-23-2022 Monocytes/100 WBC (Bld) 10.5 % . [facility] Neutrophils Auto (Bld) [#/Vo l]Ordered By: Zeinab Justice on 04-23-2022 Neutrophils (Bld) [#/Vol] 3.6 10*3/uL 1.8-7.7 [facility] Neutrophils/100 WBC Auto (Bl d)Ordered By: Zeinab Justice on 04-23-2022 Neutrophils/100 WBC (Bld) 68.5 % . [facility] No Panel InformationOrdered By: Zeinab Justice on 04-23-2022 Estimated GFR () 49 mL/Min [facility] Comment on above: GFR estimated refere nce range: According to KDOQI guidelines, <60 ml/min/1.73m2 is sufficient to diagnose a patient with chronic kidney disease. Pharmacy Creatinine Clearance (Chem N/A [facility] Platelet mean volume Auto (B ld) [Entitic vol]Ordered By: Zeinab Justice on 04-23-2022 Platelet mean volume (Bld) [Entitic vol] 9.7 fL 6.6-10.1 [facility] Platelets Auto (Bld) [#/Vol] Ordered By: Zeinab Justice on 04-23-2022 Platelets (Bld) [#/Vol] 170 10*3/uL 150-450 [facility] Protein [Mass/volume] in Ser um or PlasmaOrdered By: Zeinab Justice on 04-23-2022 Protein [Mass/Vol] 6.2 g/dL 6.1-7.9 [facility] RBC Auto (Bld) [#/Vol]Ordere d By: Zeinab Justice on 04-23-2022 RBC (Bld) [#/Vol] 4.02 10*6/uL 3.90-5.60 [facility] Serum or plasma alanine cadet otransferase measurement without P-5'-P (enzymatic activiOrdered By: Zeinab Justice on 04-23-2022 ALT No additional P-5'-P [Catalytic activity/Vol] 19 U/L 10-60 [facility] Serum or plasma albumin/glob ulin mass ratioOrdered By: Zeinab Justice on 04-23-2022 Albumin/Globulin [Mass ratio] 1.4 {ratio} [facility] Serum or plasma alkaline crispin sphatase measurement (enzymatic activity/volume)Ordered By: Zeinab Justice on 04-23-2022 ALP [Catalytic activity/Vol] 51 U/L 32-92 [facility] Serum or plasma anion gap de terminationOrdered By: Zeinab Justice on 04-23-2022 Anion gap [Moles/Vol] 13.2 mmol/L 6.0-15.0 [facility] Serum or plasma aspartate am inotransferase measurement (enzymatic activity/volume)Ordered By: Zeinab Justice on 04-23-2022 AST [Catalytic activity/Vol] 18 U/L 10-42 [facility] Serum or plasma calcium jose antonio urement (mass/volume)Ordered By: Zeinab Justice on 04-23-2022 Calcium [Mass/Vol] 8.8 mg/dL 8.2-10.2 [facility] Serum or plasma chloride doreen surement (moles/volume)Ordered By: Zeinab Justice on 04-23-2022 Chloride [Moles/Vol] 104 mmol/L 95-114 [facility] Serum or plasma glucose jose antonio urement (mass/volume)Ordered By: Zeinab Justice on 04-23-2022 Glucose [Mass/Vol] 98 mg/dL 70-100 [facility] Comment on above: ADA recommended refe rence rangeRandom Glucose Reference Range is dependent on time and content of last meal. Glucose of more than 200 mg/dL in a nonstressed, ambulatory subject supports the diagnosis of Diabetes Mellitus. Serum or plasma potassium me asurement (moles/volume)Ordered By: Zeinab Justice on 04-23-2022 Potassium [Moles/Vol] 4.6 mmol/L 3.5-5.1 [facility] Serum or plasma sodium measu rement (moles/volume)Ordered By: Zeinab Justice on 04-23-2022 Sodium [Moles/Vol] 136 mmol/L 136-146 [facility] Serum or plasma total biliru bin measurement (mass/volume)Ordered By: Zeinab Justice on 04-23-2022 Bilirubin [Mass/Vol] 0.5 mg/dL 0.3-1.2 [facility] Serum or plasma total carbon dioxide measurement (moles/volume)Ordered By: Zeinab Justice on 04-23-2022 CO2 [Moles/Vol] 23.4 mmol/L 22.0-30.0 [facility] Serum or plasma urea nitroge n measurement (mass/volume)Ordered By: Zeinab Pao on 04-23-2022 Urea nitrogen [Mass/Vol] 22 mg/dL 02-21 [facility] CBC W Auto Differential pane l (Bld)on 03-27-2022 Basophils (Bld) [#/Vol] <0.11 k/uL [facility] Basophils/100 WBC (Bld) 0.3 % [facility] Differential cell count method Nom (Bld) Auto [facility] Eosinophils (Bld) [#/Vol] 0.25 10*3/uL <0.46 k/uL [facility] Eosinophils/100 WBC (Bld) 3.2 % [facility] Erythrocyte distribution width (RBC) [Ratio] 14.3 % 11.5 - 15.0 % [facility] Hematocrit (Bld) [Volume fraction] 39.3 % 39.0 - 51.0 % [facility] Hemoglobin (Bld) [Mass/Vol] 12.8 g/dL Low 13.0 - 17.0 g/dL [facility] Immature granulocytes (Bld) [#/Vol] 0.03 10*3/uL <0.10 k/uL [facility] Immature granulocytes/100 WBC (Bld) 0.4 % [facility] Lymphocytes (Bld) [#/Vol] 1.53 10*3/uL 1.00 - 4.00 k/uL [facility] Lymphocytes/100 WBC (Bld) 19.8 % [facility] MCH (RBC) [Entitic mass] 31.4 pg 26.0 - 34.0 pg [facility] MCHC (RBC) [Mass/Vol] 32.6 g/dL 30.5 - 36.0 g/dL [facility] MCV (RBC) [Entitic vol] 96.6 fL 80.0 - 100.0 fL [facility] Monocytes (Bld) [#/Vol] 0.67 10*3/uL <0.87 k/uL [facility] Monocytes/100 WBC (Bld) 8.7 % [facility] Neutrophils (Bld) [#/Vol] 5.21 10*3/uL 1.45 - 7.50 k/uL [facility] Neutrophils/100 WBC (Bld) 67.6 % [facility] Nucleated RBC (Bld) [#/Vol] <0.01 k/uL [facility] Nucleated RBC/100 WBC (Bld) [Ratio] 0.0 /100 WBC [facility] Platelet mean volume (Bld) [Entitic vol] 11.2 fL 9.0 - 12.7 fL [facility] Platelets (Bld) [#/Vol] 183 10*3/uL 150 - 400 k/uL [facility] RBC (Bld) [#/Vol] 4.07 10*6/uL Low 4.20 - 6.00 m/uL [facility] WBC (Bld) [#/Vol] 7.71 10*3/uL 3.70 - 11.00 k/uL [facility] CHEMISTRYOrdered By: SYSTEM SYSTEM on 02-13-2022 Albumin [Mass/Vol] 4.0 g/dL Normal 3.3 - 5.0 gm/dL [facility] Albumin/Globulin [Mass ratio] 1.2 {ratio} Normal 1.1 - 2.2 [facility] ALP [Catalytic activity/Vol] 52 [iU]/d Normal 21 - 98 Int._Unit/ L [facility] ALT No additional P-5'-P [Catalytic activity/Vol] 15 [iU]/d Normal 6 - 46 Int._Unit/ L [facility] Anion gap [Moles/Vol] 10 mmol/L Normal 6 - 16 mEq/L [facility] AST [Catalytic activity/Vol] 17 [iU]/d Normal 5 - 43 Int._Unit/ L [facility] Bilirubin [Mass/Vol] 0.3 mg/dL Normal 0.0 - 1 .1 mg/dL [facility] Calcium [Mass/Vol] 9.1 mg/dL Normal 8.9 - 11. 1 mg/dL [facility] Chloride [Moles/Vol] 107 mmol/L Normal 101 - 1 11 mmol/L [facility] CO2 [Moles/Vol] 25 mmol/L Normal 21 - 31 mmol/L [facility] Creatinine [Mass/Vol] 1.8 mg/dL High 0.5 - 1.3 mg/dL [facility] GFR/1.73 sq M.predicted among blacks MDRD (S/P/Bld) [Vol rate/Area] 45 mL/min/1.73 m2 Low >=59mL/min /1.73 m2 [facility] Chem S GFR/1.73 sq M.predicted among non-blacks MDRD (S/P/Bld) [Vol rate/Area] 37 mL/min/1.73 m2 Low >=59mL/min /1.73 m2 [facility] Chem S Globulin (S) [Mass/Vol] 3.3 g/dL Normal 1.4 - 4.0 gm/dL [facility] Glucose [Mass/Vol] 95 mg/dL Normal 55 - 199 mg/dL [facility] Potassium [Moles/Vol] 4.5 mmol/L Normal 3.5 - 5.3 mmol/L [facility] Protein [Mass/Vol] 7.3 g/dL Normal 6.0 - 7.8 gm/dL [facility] Sodium [Moles/Vol] 137 mmol/L Normal 135 - 145 mmol/L [facility] Urea nitrogen [Mass/Vol] 27 mg/dL High 5 - 21 mg/dL [facility] Remisol Urea nitrogen/Creatinine [Mass ratio] 15 mg/mg Normal 10 - 20 [facility] Remisol HEMATOLOGYOrdered By: SYSTEM SYSTEM on 02-13-2022 Basophils/100 WBC (Bld) 0.9 % Normal 0.0 - 2.0 % [facility] HemeAutoSS Basophils/Leukocytes Auto (Bld) [Pure # fraction] 0.1 E9/L Normal 0.0 - 0.2 E9/L [facility] HemeAutoSS Eosinophils/100 WBC (Bld) 2.9 % Normal 0.0 - 8.0 % [facility] HemeAutoSS Eosinophils/Leukocytes Auto (Bld) [Pure # fraction] 0.2 E9/L Normal 0.0 - 0.5 E9/L [facility]eAutoSS Lymphocytes/100 WBC (Bld) 23.0 % Normal 14.0 - 50.0 % [facility] HemeAutoSS Lymphocytes/Leukocytes Auto (Bld) [Pure # fraction] 1.6 E9/L Normal 1.0 - 4.0 E9/L [facility] HemeAutoSS Monocytes/100 WBC (Bld) 9.4 % Normal 4.0 - 14.0 % [facility] HemeAutoSS Monocytes/Leukocytes Auto (Bld) [Pure # fraction] 0.6 E9/L Normal 0.2 - 1.0 E9/L [facility] HemeAutoSS Neutrophils/100 WBC (Bld) 63.8 % Normal 36.0 - 75.0 % [facility] HemeAutoSS Neutrophils/Leukocytes Auto (Bld) [Pure # fraction] 4.4 E9/L Normal 2.0 - 7.5 E9/L [facility] HemeAutoSS HEMATOLOGYOrdered By: Makenzie Winchester on 02-13-2022 Erythrocyte distribution width (RBC) [Ratio] 15.0 % High 10.9 - 14.2 % [facility] HemeAutoSS Hematocrit (Bld) [Volume fraction] 40.2 % Normal 37.7 - 49.0 % [facility] HemeAutoSS Hemoglobin (Bld) [Mass/Vol] 13.2 g/dL Low 13.5 - 17.5 gm/dL [facility] HemeAutoSS MCH (RBC) [Entitic mass] 30.2 pg Normal 27.0 - 34.0 pg [facility] HemeAutoSS MCHC (RBC) [Mass/Vol] 32.9 g/dL Normal 31.4 - 36.0 gm/dL [facility] HemeAutoSS MCV (RBC) [Entitic vol] 91.6 fL Normal 80.0 - 100.0 fL [facility]eAutoSS Platelet mean volume (Bld) [Entitic vol] 9.8 fL Normal 6.4 - 10.8 fL [facility] HemeAutoSS Platelets (Bld) [#/Vol] 197.0 E9/L Normal 150.0 - 500.0 E9/L [facility]eAutoSS RBC (Bld) [#/Vol] 4.4 E12/L Normal 4.3 - 5.9 E12/L [facility] HemeAutoSS WBC corrected for nucl RBC Auto (Bld) [#/Vol] 6.9 E9/L Normal 4.0 - 11.0 E9/L [facility] HemeAutoSS Covid-19 PCR ([facility])on SARS-CoV-2 (COVID-19) RNA WENCESLAO+probe Ql (Unsp spec) Not detected Normal NOT DETECTED [facility] Comment on above: Result Comment: This test is not yet approved or cleared by the [place] FDA. When there are no FDA-approved or cleared tests available, and other criteria are met, FDA can make tests available under an emergency access mechanism called an Emergency Use Authorization (EUA). The EUA for this test is supported by the Manager Oncology of Health and Human Service's (HHS's) declaration that circumstances exist to justify the emergency use of in vitro diagnostics for the detection and/or diagnosis of the virus that causes COVID-19. This EUA will remain in effect (meaning this test can be used) for the duration of the COVID-19 declaration justifying emergency of IVDs, unless it is terminated or revoked by FDA (after which the test may no longer be used). When diagnostic testing is negative, the possibility of a false negative should be considered in the context of a patient's recent exposures and the presence of clinical signs and symptoms consistent with SARS-CoV-2. Performed By: #### C VDTBH #### [facility] [address] [place] [address] Dr. Leighann Santana PTH INTACTon 01-31-2022 PTH, Intact 35 pg/mL Normal 15-65 [facility] Comment on above: Performed By: #### P THINT #### [facility] [address] [address] [address] Leighann Santana VIT D 25-OH LABCORPon 2021 Vitamin D, 25-Hydroxy 26.2 ng/mL Critically low 30.0-100.0 [facility] Comment on above: Result Comment: [place] min D deficiency has been defined by the Mobile of Medicine and an Endocrine Society practice guideline as a level of serum 25-OH vitamin D less than 20 ng/mL (1,2). The Endocrine Society went on to further define vitamin D insufficiency as a level between 21 and 29 ng/mL (2). 1. IOM (Mobile of Medicine). 2010. Dietary reference intakes for calcium and D. [place]: The National Academies Press. 2. Grecia MF, Wayne PALMER, John RIVERS, et al. Evaluation, treatment, and prevention of vitamin D deficiency: an Endocrine Society clinical practice guideline. JCEM. 2010; 96(7):1911-30. Performed By: #### V ITADLC #### [facility] [address] [address] [address] Leighann Santana HEMOGRAM AND PLATELon 2021 Hematocrit (Bld) [Volume fraction] 39.3 % Critically low 42.0-54.0 [facility] Comment on above: Performed By: #### H H ####[facility] [address] [address]Dr. Leighann Santana Hemoglobin (Bld) [Mass/Vol] 12.5 g/dL Critically low 14.0-18.0 [facility] Comment on above: Performed By: #### H H ####[facility] [address] [address]DrSusan Santana MCH (RBC) [Entitic mass] 30.2 pg Normal 25.9-34.0 [facility] Comment on above: Performed By: #### H H ####[facility] [address] [place], [place] [address]DrSusan Santana MCHC (RBC) [Mass/Vol] 31.8 g/dL Normal 29.9-35.2 [facility] Comment on above: Performed By: #### H H ####[facility] [address] [place], [place] [address]Dr. Leighann Santana MCV (RBC) [Entitic vol] 94.9 fL Critically high 80.0-94.0 [facility] Comment on above: Performed By: #### H H ####[facility] [address] [place], [place] [address]DrSusan Santana PLT 191 103/ul Normal 150-450 [facility] Comment on above: Performed By: #### H H ####[facility] [address] [address]DrSusan Santana RBC 4.14 106/ul Critically low 4.70-6.10 [facility] Comment on above: Performed By: #### H H ####[facility] [address] [address]DrSusan Santana WBC 7.3 103/ul Normal 4.0-11.0 [facility] Comment on above: Performed By: #### H H ####[facility] [address] [address]Dr. Leighann Santana MAGNESIUMon 01-30-2022 Magnesium [Mass/Vol] 1.9 mg/dL Normal 1.8-2.4 [facility] Comment on above: Performed By: #### R ENAL, MG, URIC ####[facility] [address] [place], [place] [address]Dr. Leighann Santana RENAL FUNCTION PANELon 01-30 Albumin [Mass/Vol] 3.4 g/dL Normal 3.4-5.0 [facility] Comment on above: Performed By: #### R ENAL, MG, URIC ####[facility] [address] [place], [place] [address]Dr. Leighann Santana Calcium [Mass/Vol] 8.7 mg/dL Normal 8.5-10.1 [facility] Comment on above: Performed By: #### R ENAL, MG, URIC ####[facility] [address] [place], [place] [address]Dr. Leighann Santana Chloride [Moles/Vol] 105 mmol/L Normal 98-107 [facility] Comment on above: Performed By: #### R ENAL, MG, URIC ####[facility] [address] [place], [place] [address]Dr. Leighann Santana CO2 [Moles/Vol] 26.5 mmol/L Normal 21.0-32.0 [facility] Comment on above: Performed By: #### R ENAL, MG, URIC ####[facility] [address] [address]Dr. Leighann Santana Creatinine [Mass/Vol] 1.77 mg/dL Critically high 0.70-1.30 [facility] Comment on above: Performed By: #### R ENAL, MG, URIC ####[facility] [address] [address]Dr. Leighann Santana EGFR-AF TRISTANIAN 46 mL/min/1.73m2 Critically low >=60 [facility] Comment on above: Performed By: #### R ENAL, MG, URIC ####[facility] [address] [id number]. Leighann Santana EGFR-NON AF TRISTANIAN 38 mL/min/1.73m2 Critically low >=60 [facility] Comment on above: Performed By: #### R ENAL, MG, URIC ####[facility] [address] [id number]. Leighann Santana Glucose [Mass/Vol] 136 mg/dL Critically high 74-106 [facility] Comment on above: Performed By: #### R ENAL, MG, URIC ####[facility] [address] [address]Dr. Leighann Santana Phosphate [Mass/Vol] 3.6 mg/dL Normal 2.6-4.7 [facility] Comment on above: Performed By: #### R ENAL, MG, URIC ####[facility] [address] [address]Dr. Leighann Santana Potassium [Moles/Vol] 4.5 mmol/L Normal 3.5-5.1 [facility] Comment on above: Performed By: #### R ENAL, MG, URIC ####[facility] [address] [address]Dr. Leighann Santana Sodium [Moles/Vol] 140 mmol/L Normal 136-145 [facility] Comment on above: Performed By: #### R ENAL, MG, URIC ####[facility] [address] [address]Dr. Leighann Santana Urea nitrogen [Mass/Vol] 25.0 mg/dL Critically high 7.0-18.0 [facility] Comment on above: Performed By: #### R ENAL, MG, URIC ####[facility] [address] [address]Dr. Leighann Santana UA RANDOM W/MICROSCOPICon BACTERIA SMALL Abnormal NONE SEEN [facility] Comment on above: Performed By: #### U AMIC #### [facility] [address] [address] [address] Leighann Santana Bilirubin Ql (U) Negative Normal NEGATIVE [facility] Comment on above: Performed By: #### U AMIC #### [facility] [address] [address] [address] Leighann Santana CAST NONE SEEN Normal NONE SEEN [facility] Comment on above: Performed By: #### U AMIC #### [facility] [address] [address] [address] Leighann Santana Clarity (U) CLEAR Normal CLEAR [facility] Comment on above: Performed By: #### U AMIC #### [facility] [address] [address] [address] Leighann Santana Color (U) LT. YELLOW Normal YELLOW [facility] Comment on above: Performed By: #### U AMIC #### [facility] [address] [place] [address] Dr. Leighann Santana Crystals LM Nom (Urine sed) NONE SEEN Normal NONE SEEN [facility] Comment on above: Performed By: #### U AMIC #### [facility] [address] [address] [address] Leighann Santana Epithelial cells LM Ql (Urine sed) FEW Abnormal NONE SEEN /RARE [facility] Comment on above: Performed By: #### U AMIC #### [facility] [address] [address] [address] Leighann Santana Glucose Ql (U) Negative Normal NEGATIVE [facility] Comment on above: Performed By: #### U AMIC #### [facility] [address] [address] [address] Leighann Santana Hemoglobin Ql (U) TRACE-INTACT Abnormal NEGATIVE [facility] Comment on above: Performed By: #### U AMIC #### [facility] [address] [address] [address] Leighann Santana Ketones Ql (U) Negative Normal NEGATIVE [facility] Comment on above: Performed By: #### U AMIC #### [facility] [address] [address] [address] Leighann Santana LEUKOCYTES MODERATE Abnormal NEGATIVE [facility] Comment on above: Performed By: #### U AMIC #### [facility] [address] [address] [address] Leighann Santana MUCOUS NONE SEEN Normal NONE SEEN [facility] Comment on above: Performed By: #### U AMIC #### [facility] [address] [address] [address] Leighann Santana Nitrite Ql (U) Positive Abnormal NEGATIVE [facility] Comment on above: Performed By: #### U AMIC #### [facility] [address] [address] [address] Leighann Santana pH (U) 5.5 [pH] Normal 5-9 [facility] Comment on above: Performed By: #### U AMIC #### [facility] [address] [place] [address] Dr. Leighann Santana RBC 2-5 Abnormal 0-2 [facility] Comment on above: Performed By: #### U AMIC #### [facility] [address] [place] [address] Dr. Leighann Santana SPEC GRAVITY >=1.030 Abnormal 1.005-<=1. 025 [facility] Comment on above: Performed By: #### U AMIC #### [facility] [address] [address] [address] Leighann Santana UA PROTEIN 30 mg/dl Abnormal NEGATIVE/ TRACE [facility] Comment on above: Performed By: #### U AMIC #### [facility] [address] [place] [address] Dr. Leighann Santana Urobilinogen Qn (U) 0.2 {Jing'U}/dL Normal 0.2 - 1. 0 [facility] Comment on above: Performed By: #### U AMIC #### [facility] [address] [place] [address] Dr. Leighann Santana WBC 10-20 Abnormal NONE SEEN [facility] Comment on above: Performed By: #### U AMIC #### [facility] [address] [place] [address] Dr. Leighann Santana URIC ACID SERUMon 01-30-2022 Urate [Mass/Vol] 6.5 mg/dL Normal 3.5-7.2 [facility] Comment on above: Performed By: #### R ENAL, MG, URIC ####[facility] [address] [place], [place] [address]IxDr. Leighann Santana URINE T PROTEIN CREAT RATIOo n 01-30-2022 Protein (U) [Mass/Vol] 73.2 mg/dL Critically high <=12.0 [facility] Comment on above: Performed By: #### U RTPCR #### [facility] [address] [place], [place] [address] Dr. Leighann Santana UR PROT CREAT RAT 0.42 Normal [facility] Comment on above: Performed By: #### U RTPCR #### [facility] [address] [place], [place] [address] Dr. Leighann Santana URINE CREAT 175.21 mg/dL Normal 20.00-300. 00 [facility] Comment on above: Performed By: #### U RTPCR #### [facility] [address] [place], [place] [address] Dr. Leighann Santana SURGICAL PATH REPORTon 06-11 SURGICAL PATH REPORT [facility] Department of Pathology [address] [place], [place] [id number] Name: YESENIA BROUSSARD : 1945 [facility] [id number] Number: Gender: Male Location: 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 COMMENT: Intradepartmental consultation was obtained with diagnostic concurrence. CANCER CASE SUMMARY SPECIMEN Procedure Transurethral resection of the prostate (TURP) TUMOR Histologic Type Acinar adenocarcinoma Histologic Grade Grade Grade group 2 (Nicola Score 3 + 4 = 7) Percentage of Pattern 4 6 - 10% Intraductal Carcinoma (IDC) Not identified Cribriform Glands Not identified Print Date/ 06/11/2021 16:16 EST Number: Time: [facility] Department of Pathology [address] [place] [id number] Name: YESENIA BROUSSARD : 1945 [facility] [id number] Number: Gender: Male Location: [facility] Admit 75 years Attending BARBARA JOHNSTON Age: Provider: Ordering BARBARA JOHNSTON Provider: Consulting: Surgical Pathology Report ACCESSION: COLLECTED DATE/TIME: RECEIVED DATE/TIME: PATHOLOGIST: [id number] 06/06/2021 16:30 EST 06/07/2021 11:15 EST QUINN MAK, KATYA Final Diagnosis TUMOR QUANTITATION Tumor Quantitation For TURP Specimens Estimated Percentage of Prostate Involved by Tumor 21 - 30% Number of Positive Chips: Approximately 39 Total Number of Chips: Approximately 104 Periprostatic Fat Invasion Not identified Lymphovascular Invasion Not identified ADDITIONAL FINDINGS Additional Findings Nodular prostatic hyperplasia KATYA BALL PATHOLOGIST (Electronic Signature) Date Verified 06/11/2021 TS Clinical Data PRE-OP DIAGNOSIS: Not specified POST-OP DIAGNOSIS: Enlarged prostate with obstruction PROCEDURES: Cysto, TURP SPECIMEN: Prostate tissue / Surgical outpatient Print Date/ 06/11/2021 16:16 EST Number: Time: [facility] Department of Pathology [address] [place] [phone] Name: YESENIA BROUSSARD : 1945 [facility] [id number] Number: Gender: Male Location: [facility] Admit 75 years Attending BARBARA JOHNSTON Age: Provider: Ordering BARBARA JOHNSTON Provider: Consulting: Surgical Pathology Report ACCESSION: COLLECTED DATE/TIME: RECEIVED DATE/TIME: PATHOLOGIST: [id number] 06/06/2021 16:30 EST 06/07/2021 11:15 EST QUINN MAK, [facility] Gross Description Labeled prostate tissue. Received in formalin are multiple hemicylindrical segments of khan- pink firm, but pliable tissue. The segments have an aggregate weight of 12 grams and measure in aggregate 7.8 x 6.4 x 2.0 cm. There are calculi present amongst the tissue segment. The specimen is entirely submitted in twelve cassettes. MP/ww 06/07/2021 Tissue pathology report for: [facility], [address] [place] [address]; PATHOLOGY SERVICES PROVIDED BY [employer], Georgina Goodman (CLIA #[id number]) in cooperation with [facility] [place] at [address] [place] [address] (CLIA #[id number]) Codes CPT CODE: 30070 Print Date/ 06/11/2021 16:16 EST Number: Time: Normal [facility] [place] Comment on above: Performed By: #### [id number] #### [facility] Services [address] [place], [place] [id number] [employer]ensional Art Instructor: Gigi Peters MD Vital Signs Date Time Vital Sign Value Performing Clinician Facility 06-18-2023 13:11-0500 Diastolic blood pressure 94 mm[Hg] Tram 1 [facility] 06-18-2023 13:11-0500 Heart rate 86 /min Tram [address] [facility] 06-18-2023 13:11-0500 Systolic blood pressure 154 mm[Hg] Tram 1 [facility] 06-12-2023 11:11-0500 Body height 177.8 cm Kodi Reynolds MD Work Phone: [facility] 06-12-2023 [id number] Body weight 88.91 kg Kodi Reynolds MD Work Phone: [facility] 06-04-2023 10:19-0500 Diastolic blood pressure 84 mm[Hg] Chaim Grayson DO Work Phone: [facility] 06-04-2023 10:19-0500 Systolic blood pressure 154 mm[Hg] Chaim Grayson DO Work Phone: [facility] 06-04-2023 10:18-0500 Body height 177.8 cm Chaim Grayson DO Work Phone: [facility] 06-04-2023 10:18-0500 Body mass index (BMI) [Ratio] 28.41 kg/m2 Chaim Grayson DO Work Phone: [facility] 06-04-2023 10:18-0500 Body weight 89.81 kg Chaim Grayson DO Work Phone: [facility] 06-04-2023 10:18-0500 Heart rate 83 /min Chaim Grayson DO Work Phone: [facility] 04-21-2023 09:05-0500 Diastolic blood pressure 86 mm[Hg] CLAIRE JAMES [facility] 04-21-2023 09:05-0500 Heart rate 76 /min CLAIRE JAMES [facility] 04-21-2023 09:05-0500 Mean blood pressure 108 mm[Hg] CLAIRE BRITNI [facility] 04-21-2023 09:05-0500 Systolic blood pressure 151 mm[Hg] CLAIRE BRITNI [facility] 04-21-2023 08:20-0500 Blood Pressure Location CLAIRE BRITNI [facility] 04-21-2023 08:20-0500 Diastolic blood pressure 84 mm[Hg] CLAIRE BRITNI [facility] 04-21-2023 08:20-0500 Heart rate 79 /min CLAIRE BRITNI [facility] 04-21-2023 08:20-0500 Respiratory rate 16 /min CLAIRE BRITNI [facility] 04-21-2023 08:20-0500 Systolic blood pressure 153 mm[Hg] CLAIRE BRITNI [facility] 04-16-2023 11:30-0500 Body height 177.8 cm Jose Martin Mchugh Other [employer] Other 04-16-2023 11:30-0500 Body mass index (BMI) [Ratio] 28.26 kg/m2 Jose Martin Mchugh Other [employer] Other 04-16-2023 11:30-0500 Body temperature 97.8 [degF] Jose Martin Mchugh Other [employer] Other 04-16-2023 11:30-0500 Body weight 89.36 kg Jose Martin Jeison Other [employer] Other 04-16-2023 11:30-0500 Diastolic blood pressure 62 mm[Hg] Jose Martin Jeison Other [employer] Other 04-16-2023 11:30-0500 SaO2% (BldA) [Mass fraction] 97 % Jose Martin Rosariozaira Other [employer] Other 04-16-2023 11:30-0500 Systolic blood pressure 120 mm[Hg] Jose Martin Jeison Other [employer] Other 03-23-2023 12:55-0400 Diastolic blood pressure 78 mm[Hg] MD Shaikh Storm Work Phone: [facility] 03-23-2023 12:55-0400 Heart rate 54 /min MD Shaikh Storm Work Phone: [facility] 03-23-2023 12:55-0400 Respiratory rate 16 /min MD Shaikh Storm Work Phone: [facility] 03-23-2023 12:55-0400 SaO2% (BldA) [Mass fraction] 95 % MD Shaikh Storm Work Phone: [facility] 03-23-2023 12:55-0400 Systolic blood pressure 145 mm[Hg] MD Shaikh Storm Work Phone: [facility] 03-23-2023 09:48-0400 Inhaled oxygen flow rate 4 L/min MD Shaikh Storm Work Phone: [facility] 03-23-2023 07:22-0400 Body height 177.8 cm MD Shaikh Storm Work Phone: [facility] 03-23-2023 07:22-0400 Body weight 89.35 kg MD Shaikh Storm Work Phone: [facility] 03-12-2023 08:30-0400 Body height 177.8 cm Jose Martin Mchugh Other [employer] Other 03-12-2023 08:30-0400 Body mass index (BMI) [Ratio] 28.26 kg/m2 Jose Martin Mchugh Other [employer] Other 03-12-2023 08:30-0400 Body temperature 97.5 [degF] Jose Martin Mchugh Other [employer] Other 03-12-2023 08:30-0400 Body weight 89.36 kg Jose Martin Mchugh Other [employer] Other 03-12-2023 08:30-0400 Diastolic blood pressure 68 mm[Hg] Jose Martin Mchugh Other [employer] Other 03-12-2023 08:30-0400 SaO2% (BldA) [Mass fraction] 97 % Jose Martin Mchugh Other [employer] Other 03-12-2023 08:30-0400 Systolic blood pressure 128 mm[Hg] Jose Martin Mchugh Other [employer] Other 02-20-2023 11:15-0400 Diastolic blood pressure 63 mm[Hg] MD Shaikh Storm Work Phone: [facility] 02-20-2023 11:15-0400 Heart rate 45 /min MD Shaikh Storm Work Phone: [facility] 02-20-2023 11:15-0400 Respiratory rate 18 /min MD Shaikh Storm Work Phone: [facility] 02-20-2023 11:15-0400 SaO2% (BldA) [Mass fraction] 95 % MD Shaikh Storm Work Phone: [facility] 02-20-2023 11:15-0400 Systolic blood pressure 123 mm[Hg] MD Shaikh Storm Work Phone: [facility] 02-20-2023 11:07-0400 Body height 177.8 cm MD Shaikh Storm Work Phone: [facility] [facility] 11:07-0400 Body mass index (BMI) [Ratio] 29 kg/m2 MD Shaikh Storm Work Phone: [facility] 02-20-2023 11:07-0400 Body weight 92 kg MD Shaikh Storm Work Phone: [facility] 02-20-2023 07:53-0400 Body temperature 98 [degF] MD Shaikh Storm Work Phone: [facility] 02-18-2023 11:30-0400 Body height 177.8 cm Bonnie Tan Other [employer] Other 02-18-2023 11:30-0400 Body mass index (BMI) [Ratio] 29.12 kg/m2 Bonnie Tan Other [employer] Other 02-18-2023 11:30-0400 Body temperature 97.8 [degF] Bonnie Tan Other [employer] Other 02-18-2023 11:30-0400 Body weight 92.08 kg Bonnie Tan Other [employer] Other 02-18-2023 11:30-0400 Diastolic blood pressure 76 mm[Hg] Bonnie Tan Other [employer] Other 02-18-2023 11:30-0400 SaO2% (BldA) [Mass fraction] 97 % Bonnie Tan Other [employer] Other 02-18-2023 11:30-0400 Systolic blood pressure 126 mm[Hg] Bonnie Tan Other [employer] Other 02-11-2023 14:48-0400 Blood Pressure Location CLAIRE BRITNI [facility] 02-11-2023 14:48-0400 Diastolic blood pressure 74 mm[Hg] CLAIRE BRITNI [facility] 02-11-2023 14:48-0400 Heart rate 80 /min CLAIRE BRITNI [facility] 02-11-2023 14:48-0400 Respiratory rate 16 /min CLAIRE BRITNI [facility] 02-11-2023 14:48-0400 Systolic blood pressure 130 mm[Hg] CLAIRE BRITNI [facility] 01-19-2023 13:04-0400 Body weight 92.63 kg Jose Nichols DO Work Phone: [facility] 01-19-2023 13:04-0400 Diastolic blood pressure 58 mm[Hg] Jose Nichols DO Work Phone: [facility] 01-19-2023 13:04-0400 Heart rate 48 /min Jose Nichols DO Work Phone: [facility] 01-19-2023 13:04-0400 Systolic blood pressure 122 mm[Hg] Jose Nichols DO Work Phone: [facility] 12-03-2022 14:57-0400 Blood Pressure Location CLAIRE BRITNI [facility] 12-03-2022 14:57-0400 Diastolic blood pressure 76 mm[Hg] CLAIRE BRITNI [facility] 12-03-2022 14:57-0400 Heart rate 69 /min CLAIRE BRITNI [facility] 12-03-2022 14:57-0400 Respiratory rate 16 /min CLAIRE BRITNI [facility] 12-03-2022 14:57-0400 Systolic blood pressure 138 mm[Hg] CLAIRE BRITNI [facility] 11-18-2022 13:29-0400 Body temperature 98.71 [degF] SRAVANTHI Nazario MD Work Phone: [facility] 11-18-2022 13:29-0400 Body weight 92.53 kg SRAVANTHI Nazario MD Work Phone: [facility] 11-18-2022 13:29-0400 Diastolic blood pressure 54 mm[Hg] SRAVANTHI Nazario MD Work Phone: [facility] 11-18-2022 13:29-0400 Heart rate 56 /min SRAVANTHI Nazario MD Work Phone: [facility] 11-18-2022 13:29-0400 Respiratory rate 18 /min SRAVANTHI Nazario MD Work Phone: [facility] 11-18-2022 13:29-0400 SaO2% (BldA) [Mass fraction] 96 % SRAVANTHI Nazario MD Work Phone: [facility] 11-18-2022 13:29-0400 Systolic blood pressure 112 mm[Hg] SRAVANTHI Nazario MD Work Phone: [facility] 04-21-2022 15:30-0500 Body temperature 96.69 [degF] SRAVANTHI Nazario MD Work Phone: [facility] 04-21-2022 15:30-0500 Body weight 95.71 kg SRAVANTHI Nazario MD Work Phone: [facility] 04-21-2022 15:30-0500 Diastolic blood pressure 70 mm[Hg] SRAVANTHI Nazario MD Work Phone: [facility] 04-21-2022 15:30-0500 Heart rate 58 /min SRAVANTHI Nazario MD Work Phone: [facility] 04-21-2022 15:30-0500 Respiratory rate 18 /min SRAVANTHI Nazario MD Work Phone: [facility] 04-21-2022 15:30-0500 SaO2% (BldA) [Mass fraction] 98 % SRAVANTHI Nazario MD Work Phone: [facility] 04-21-2022 15:30-0500 Systolic blood pressure 154 mm[Hg] SRAVANTHI Nazario MD Work Phone: [facility] 04-14-2022 15:04-0500 Body temperature 97.59 [degF] SRAVANTHI Nazario MD Work Phone: [facility] 04-14-2022 15:04-0500 Body weight 93.44 kg SRAVANTHI Nazario MD Work Phone: [facility] 04-14-2022 15:04-0500 Diastolic blood pressure 68 mm[Hg] SRAVANTHI Nazario MD Work Phone: [facility] 04-14-2022 15:04-0500 Heart rate 64 /min SRAVANTHI Nazario MD Work Phone: [facility] 04-14-2022 15:04-0500 Respiratory rate 16 /min SRAVANTHI Nazario MD Work Phone: [facility] 04-14-2022 15:04-0500 SaO2% (BldA) [Mass fraction] 97 % SRAVANTHI Nazario MD Work Phone: [facility] 04-14-2022 15:04-0500 Systolic blood pressure 128 mm[Hg] SRAVANTHI Nazario MD Work Phone: [facility] 04-07-2022 11:01-0500 Body temperature 97.39 [degF] SRAVANTHI Nazario MD Work Phone: [facility] 04-07-2022 11:01-0500 Body weight 94.35 kg SRAVANTHI Nazario MD Work Phone: [facility] 04-07-2022 11:01-0500 Diastolic blood pressure 63 mm[Hg] SRAVANTHI Nazario MD Work Phone: [facility] 04-07-2022 11:01-0500 Heart rate 55 /min SRAVANTHI Nazario MD Work Phone: [facility] 04-07-2022 11:01-0500 Respiratory rate 18 /min SRAVANTHI Nazario MD Work Phone: [facility] 04-07-2022 11:01-0500 SaO2% (BldA) [Mass fraction] 98 % SRAVANTHI Nazario MD Work Phone: [facility] 04-07-2022 11:01-0500 Systolic blood pressure 138 mm[Hg] SRAVANTHI Nazario MD Work Phone: [facility] 03-31-2022 15:33-0400 Body temperature 96.69 [degF] SRAVANTHI Nazario MD Work Phone: [facility] 03-31-2022 15:33-0400 Body weight 94.8 kg SRAVANTHI Nazario MD Work Phone: [facility] 03-31-2022 15:33-0400 Diastolic blood pressure 72 mm[Hg] SRAVANTHI Nazario MD Work Phone: [facility] 03-31-2022 15:33-0400 Heart rate 54 /min SRAVANTHI Nazario MD Work Phone: [facility] 03-31-2022 15:33-0400 Respiratory rate 18 /min SRAVANTHI Nazario MD Work Phone: [facility] 03-31-2022 15:33-0400 SaO2% (BldA) [Mass fraction] 97 % SRAVANTHI Nazario MD Work Phone: [facility] 03-31-2022 15:33-0400 Systolic blood pressure 145 mm[Hg] SRAVANTHI Nazario MD Work Phone: [facility] 03-24-2022 16:03-0400 Body temperature 98.01 [degF] SRAVANTHI Nazario MD Work Phone: [facility] 03-24-2022 16:03-0400 Body weight 93.44 kg SRAVANTHI Nazario MD Work Phone: [facility] 03-24-2022 16:03-0400 Diastolic blood pressure 65 mm[Hg] SRAVANTHI Nazario MD Work Phone: [facility] 03-24-2022 16:03-0400 Heart rate 50 /min SRAVANTHI Nazario MD Work Phone: [facility] 03-24-2022 16:03-0400 Respiratory rate 16 /min SRAVANTHI Nazario MD Work Phone: [facility] 03-24-2022 16:03-0400 SaO2% (BldA) [Mass fraction] 100 % SRAVANTHI Nazario MD Work Phone: [facility] 03-24-2022 16:03-0400 Systolic blood pressure 141 mm[Hg] SRAVANTHI Nazario MD Work Phone: [facility] 03-18-2022 11:52-0400 Body temperature 97.9 [degF] SRAVANTHI Nazario MD Work Phone: [facility] 03-18-2022 11:52-0400 Body weight 93.44 kg SRAVANTHI Nazario MD Work Phone: [facility] 03-18-2022 11:52-0400 Diastolic blood pressure 71 mm[Hg] SRAVANTHI Nazario MD Work Phone: [facility] 03-18-2022 11:52-0400 Heart rate 56 /min SRAVANTHI Nazario MD Work Phone: [facility] 03-18-2022 11:52-0400 Respiratory rate 16 /min SRAVANTHI Nazario MD Work Phone: [facility] 03-18-2022 11:52-0400 SaO2% (BldA) [Mass fraction] 96 % SRAVANTHI Nazario MD Work Phone: [facility] 03-18-2022 11:52-0400 Systolic blood pressure 115 mm[Hg] SRAVANTHI Nazario MD Work Phone: [facility] 12-10-2021 09:19-0400 Body height 175.9 cm SRAVANTHI Nazario MD Work Phone: [facility] 12-10-2021 09:19-0400 Body temperature 98.71 [degF] SRAVANTHI Nazario MD Work Phone: [facility] 12-10-2021 09:19-0400 Body weight 94.35 kg SRAVANTHI Nazario MD Work Phone: [facility] 12-10-2021 09:19-0400 Diastolic blood pressure 68 mm[Hg] SRAVANTHI Nazario MD Work Phone: [facility] 12-10-2021 09:19-0400 Heart rate 51 /min SRAVANTHI Nazario MD Work Phone: [facility] 12-10-2021 09:19-0400 Respiratory rate 16 /min SRAVANTHI Nazario MD Work Phone: [facility] 12-10-2021 09:19-0400 SaO2% (BldA) [Mass fraction] 97 % SRAVANTHI Nazario MD Work Phone: [facility] 12-10-2021 09:19-0400 Systolic blood pressure 116 mm[Hg] SRAVANTHI Nazario MD Work Phone: [facility] 11-04-2021 09:48-0400 Blood Pressure Location Barbara JOHNSTON [facility] 11-04-2021 09:48-0400 Diastolic blood pressure 61 mm[Hg] Barbara JOHNSTON [facility] 11-04-2021 09:48-0400 Heart rate 52 /min Barbara JOHNSTON [facility] 11-04-2021 09:48-0400 Systolic blood pressure 123 mm[Hg] Barbara JOHNSTON [facility] 10-24-2021 16:40-0400 Body height 177.8 cm Theo Vivian Other [employer] Other 10-24-2021 16:40-0400 Body mass index (BMI) [Ratio] 29.01 kg/m2 Theo Vivian Other [employer] Other 10-24-2021 16:40-0400 Body temperature 98 [degF] Theo Vivian Other [employer] Other 10-24-2021 16:40-0400 Body weight 91.72 kg Theo Vivian Other [employer] Other 10-24-2021 16:40-0400 Diastolic blood pressure 72 mm[Hg] Theo Vivian Other [employer] Other 10-24-2021 16:40-0400 Respiratory rate 18 /min Theo Vivian Other [employer] Other 10-24-2021 16:40-0400 SaO2% (BldA) [Mass fraction] 96 % Theo Vivian Other [employer] Other 10-24-2021 16:40-0400 Systolic blood pressure 130 mm[Hg] Theo Vivian Other [employer] Other Encounters Encounter Date Encounter Type Care Provider Facility Start: 07-08-2023 End: 07-08-2023 ambulatory [facility] Ambulatory Start: 07-07-2023 End: 07-08-2023 ambulatory CLAIRE JAMES Facility:[facility] Start: 06-29-2023 End: 06-29-2023 ambulatory SHAIKH DOTTY Not Available Start: 06-18-2023 End: 06-19-2023 ambulatory [facility] Start: 06-18-2023 End: 06-18-2023 Subsequent hospital visit by physician Tram Jama Stress Room 1 [facility] Start: 06-12-2023 End: 06-13-2023 ambulatory JOSE NICHOLS Facility:[facility] Start: 06-12-2023 End: 06-12-2023 Office outpatient new 45 minutes Kodi Reynolds MD Work Phone: [employer] Comment on above: Spondylolisthesis of lumbar region (Primary Dx) Start: 06-10-2023 End: 06-10-2023 ambulatory Shaikh Dotty Facility:[facility] Start: 06-04-2023 End: 06-04-2023 ambulatory [facility] Ambulatory Start: 06-04-2023 End: 06-04-2023 Office consultation new/estab patient 80 min [facility] DO Work Phone: [facility] Comment on above: Hypertension, unspec ified type; Stage 3 chronic kidney disease, unspecified whether stage 3a or 3b CKD ([facility]/HCC); Mixed hyperlipidemia; Bilateral carotid artery disease, unspecified type ([facility]); Smoker; Chest pressure Start: 05-21-2023 End: 05-21-2023 ambulatory Shaikh Dotty Facility:[facility] Start: 05-21-2023 End: 05-21-2023 ambulatory MD Shaikh Storm Work Phone: [facility] Work Phone: Start: 05-21-2023 End: 05-21-2023 Patient encounter procedure MD Shaikh Storm Work Phone: [facility]-Electrodiagnostic s Work Phone: Start: 05-19-2023 End: 05-20-2023 ambulatory Hyun NAZARIO Facility:[facility] Start: 05-19-2023 Telephone encounter Hyun [facility] MD [facility] Comment on above: Appointment Confirma tion Start: 05-18-2023 ambulatory Jose Hyun Cuevas gentry DO Work Phone: [facility] Start: 05-18-2023 Patient encounter procedure Josefloyd Nichols DO Work Phone: [facility] Comment on above: Consultation with a surgeon Start: 05-11-2023 End: 05-11-2023 ambulatory SHAIKH DOTTY Facility:[facility] Start: 04-27-2023 End: 04-27-2023 ambulatory SHAIKH DOTTY Not Available Start: 04-21-2023 End: 04-22-2023 ambulatory CLAIRE JAMES Facility:[facility] Start: 04-21-2023 End: 04-22-2023 ambulatory CLAIRE JAMES Facility: [place] Start: 04-21-2023 End: 04-21-2023 Lab Drop off CLAIRE JAMES [facility] Start: 04-21-2023 End: 04-21-2023 Patient encounter procedure CLAIRE E BRITNI [facility] [place] Start: 04-16-2023 Office outpatient vi sit 15 minutes Jose Martin Mchugh [facility] Vascular Surgery Start: 04-16-2023 End: 04-16-2023 ambulatory MD Shaikh Storm Work Phone: [employer] Other Start: 04-16-2023 End: 04-16-2023 Patient encounter procedure MD Shaikh Storm Work Phone: [facility]-Ultrasound [facility] Vascular Start: 03-23-2023 End: 03-23-2023 ambulatory Shaikh Dotty Facility:[facility] Start: 03-23-2023 End: 03-23-2023 Admission to same day surgery center MD Shaikh Storm Work Phone: [facility]-Interventional Radiology Work Phone: Start: 03-23-2023 End: 03-23-2023 ambulatory MD Shaikh Storm Work Phone: [facility] Work Phone: Start: 03-12-2023 End: 03-12-2023 ambulatory Jose Martin Mchugh Other [employer] Other Start: 03-12-2023 Office outpatient vi sit 25 minutes Jose Martin Mchugh [facility] Vascular Surgery Start: 03-12-2023 Telephone encounter Theo Park [facility] Nephrology Start: 03-09-2023 End: 03-09-2023 ambulatory Theo Vivian Facility:[facility] Start: 03-09-2023 End: 03-09-2023 ambulatory MD Shaikh Storm Work Phone: [facility] Work Phone: Start: 03-09-2023 End: 03-09-2023 Patient encounter procedure MD Shaikh Storm Work Phone: [facility]-Lab [facility] [place] Work Phone: Start: 03-05-2023 End: 03-05-2023 ambulatory Shaikh Dotty Facility:[facility] Start: 03-05-2023 End: 03-05-2023 ambulatory MD Shaikh Storm Work Phone: [facility] Work Phone: Start: 03-05-2023 End: 03-05-2023 Patient encounter procedure MD Shaikh Storm Work Phone: [facility]-Ultrasound [facility] [place] Work Phone: Start: 03-04-2023 End: 03-04-2023 ambulatory Shaikh Dotty Facility:[facility] Start: 03-04-2023 End: 03-04-2023 ambulatory MD Shaikh Storm Work Phone: [facility] Work Phone: Start: 03-04-2023 End: 03-04-2023 Patient encounter procedure MD Shaikh Storm Work Phone: [facility]-Ultrasound [facility] [place] Work Phone: Start: 02-20-2023 End: 02-20-2023 ambulatory Lyla Nazario Facility:[facility] Start: 02-20-2023 End: 02-20-2023 Admission to same day surgery center MD Shaikh Storm Work Phone: [facility]-Surgery Center [facility] [place] Start: 02-18-2023 End: 02-18-2023 ambulatory Bonnie Tan Other [place] [employer] Other Start: 02-18-2023 Office outpatient ne w 60 minutes Bonnie Tan [facility] Vascular Surgery Start: 02-11-2023 End: 02-12-2023 ambulatory CLAIRE STEPHENSRY Facility:[facility] Start: 02-11-2023 End: 02-11-2023 Patient encounter procedure CLAIRE JAMES [facility] Start: 02-06-2023 End: 02-06-2023 ambulatory Temporary Anesthesiologist Facility:[facility] Start: 02-06-2023 End: 02-06-2023 ambulatory MD Shaikh Storm Work Phone: [facility] Work Phone: Start: 02-06-2023 End: 02-06-2023 Departed Referred MD Shaikh Storm Work Phone: [facility]-Ngc-Dytyavzl Testing Work Phone: Start: 02-06-2023 End: 02-06-2023 Patient encounter procedure MD Shaikh Storm Work Phone: [facility] Zss-Dtl-Odqwvvxq Testing Work Phone: Start: 01-20-2023 Telephone encounter Constance BROWN H ematology/Oncology Comment on above: Social Work Services Start: 01-19-2023 End: 01-19-2023 ambulatory SHAIKH DOTTY Facility:[facility] Start: 01-19-2023 End: 01-19-2023 Patient encounter procedure Jose Nichols DO Work Phone: [facility] Comment on above: Spinal stenosis, 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); Foraminal stenosis of lumbar region; Peripheral artery disease (HCC); Prostate cancer (HCC) Start: 01-15-2023 Telephone encounter Jose Nichols DO Work Phone: [address] [place] [address] Comment on above: Orders; Appointment Start: 01-09-2023 End: 01-09-2023 ambulatory Shaikh Dotty Facility:[facility] Start: 01-09-2023 End: 01-09-2023 ambulatory MD Shaikh Storm Work Phone: [facility] Work Phone: Start: 01-09-2023 End: 01-09-2023 Patient encounter procedure MD Shaikh Storm Work Phone: [facility]-Lab [facility] [place] Work Phone: Start: 01-06-2023 Telephone encounter Hyun Nazario MD Work Phone: Radiation Oncology Comment on above: Orders Start: 01-06-2023 ambulatory CLAIRE Elbert BRITNI Facili ty:[facility] Start: 01-05-2023 Telephone encounter Evelyn Chamberlain RN [facility] INTERVENTIONAL RADIOLOGY Comment on above: Patient Question; Ap pointment Start: 12-03-2022 End: 12-04-2022 ambulatory CLAIRE Elbert JAMES Facility:[facility] Start: 12-03-2022 End: 12-03-2022 Patient encounter procedure [facility] Start: 11-18-2022 End: 11-18-2022 ambulatory SHAIKH DOTTY Facility:[facility] Start: 11-18-2022 Telephone encounter Hyun Nazario MD Work Phone: [facility] Comment on above: Referral Information Start: 11-18-2022 End: 11-18-2022 ambulatory Bhumika Betts APRN.CNP Work Phone: Hematology/Oncology Comment on above: Prostate cancer (HCC ); Stage 3 chronic kidney disease, unspecified whether stage 3a or 3b CKD (HCC) Start: 11-18-2022 End: 11-18-2022 Patient encounter procedure Hyun Nazario MD Work Phone: Radiation Oncology Comment on above: History of prostate cancer (Primary Dx); Spinal arthritis; Spinal stenosis of lumbar region, unspecified whether neurogenic claudication present Start: 11-17-2022 End: 11-17-2022 ambulatory CARREON DOTTY Facility:[facility] Start: 10-28-2022 End: 10-29-2022 ambulatory CARREON H DOTTY Facility: Start: 10-09-2022 End: 10-10-2022 ambulatory ARTICHARLESJACEY WINSTONODILIAEDENILSON . Facility:[facility] Start: 07-15-2022 ambulatory RUT Gonzaleschilo ty:[facility] Start: 06-06-2022 Telephone encounter Constance BROWN H ematology/Oncology Comment on above: Social Work Services Start: 06-05-2022 End: 06-05-2022 ambulatory SHAIKH DOTTY Facility:[facility] Start: 06-05-2022 End: 06-05-2022 Patient encounter procedure Lab/Port Donnie Jama Work Phone: Radiation Oncology Comment on above: Urinary tract infect ion without hematuria, site unspecified (Primary Dx) Start: 05-15-2022 Telephone encounter Hyun Nazario MD Work Phone: Radiation Oncology Comment on above: Results; Appointment Start: 05-15-2022 End: 05-16-[address] HOSEA OLIVA . Facility: Start: 05-09-2022 End: 05-09-2022 ambulatory MD Shaikh Storm Work Phone: [facility] Work Phone: Start: 05-09-2022 End: 05-09-2022 Patient encounter procedure MD Shaikh Storm Work Phone: [facility]-Lab [facility] [place] Start: 04-30-2022 Social Work Constance BROWN Hematolo gy/Oncology Start: 04-23-2022 End: 04-23-2022 ambulatory MD Shaikh Storm Work Phone: [facility] Work Phone: Start: 04-23-2022 End: 04-23-2022 Patient encounter procedure MD Shaikh Storm Work Phone: [facility] [place] Start: 04-23-2022 Radiation Oncology Note G Mahamed Nazario MD Work Phone: Radiation Oncology Comment on above: Completion Note Start: 04-21-2022 End: 04-21-2022 Patient encounter procedure Hyun Nazario MD Work Phone: Radiation Oncology Comment on above: Malignant neoplasm o f prostate (HCC) (Primary Dx) Start: 04-14-2022 End: 04-14-2022 Patient encounter procedure Hyun Nazario MD Work Phone: Radiation Oncology Comment on above: Malignant neoplasm o f prostate (HCC) (Primary Dx) Start: 04-07-2022 End: 04-07-2022 Patient encounter procedure Hyun Nazario MD Work Phone: Radiation Oncology Comment on above: Malignant neoplasm o f prostate (HCC) (Primary Dx) Start: 03-31-2022 End: 03-31-2022 Social Work Constance Durand GRADUATE RN Hematology/Oncology Comment on above: Malignant neoplasm o f prostate (HCC) (Primary Dx) Start: 03-27-2022 End: 03-27-2022 Patient encounter procedure Lab/Port Donnie Jama Work Phone: Radiation Oncology Comment on above: Malignant neoplasm o f prostate (HCC) Start: 03-24-2022 End: 03-24-2022 Patient encounter procedure Hyun Nazario MD Work Phone: Radiation Oncology Comment on above: Malignant neoplasm o f prostate (HCC) (Primary Dx) Start: 03-18-2022 Telephone encounter Hyun Nazario MD Work Phone: Radiation Oncology Comment on above: Orders Start: 03-18-2022 End: 03-18-2022 Patient encounter procedure Hyun Nazario MD Work Phone: Radiation Oncology Comment on above: Malignant neoplasm o f prostate (HCC) (Primary Dx) Start: 03-13-2022 End: 03-14-[address] HOSEA OLIVA . Facility:[facility] Start: 03-12-2022 Patient encounter procedure Hyun Jose Nazario MD Work Phone: [facility] Start: 03-12-2022 Radiation Oncology Note G Mahamed Nazario MD Work Phone: Radiation Oncology Comment on above: Treatment Planning Start: 03-12-2022 Social Work Constance Durand GRADUATE RN Hematolo gy/Oncology Start: 03-04-2022 Telephone encounter Constance BROOKSW H ematology/Oncology Comment on above: Social Work Services Start: 03-03-2022 End: 03-03-2022 Patient encounter procedure Hyun Jose Nazario MD Work Phone: Radiation Oncology Comment on above: Malignant neoplasm o f prostate (HCC) (Primary Dx) Start: 02-25-2022 Telephone encounter Hyun Jose Nazario MD Work Phone: Radiation Oncology Comment on above: Patient Update; Appo intment Start: 02-13-2022 ambulatory Facility:[id number] Start: 02-13-2022 End: 02-13-2022 Patient encounter procedure Zeinab Justice [facility] Start: 02-11-2022 End: 02-11-[address] HOSEA OLIVA . Facility:[facility] Start: 02-09-2022 Encounter for preprocedural laboratory examination DR HOSEA OLIVA . [facility] Start: 02-07-2022 Telephone encounter Hyun Nazario MD Work Phone: Radiation Oncology Comment on above: Patient Update Start: 02-07-2022 End: 02-08-[address] HOSEA OLIVA . Facility:[facility] Start: 02-07-2022 End: 02-08-2022 Encounter for preprocedural laboratory examination DR HOSEA OLIVA . Facility:[facility] Start: 01-31-[address] HOSEA OLIVA . Faci lity:[facility] Start: 01-30-2022 End: 01-31-2022 ambulatory THEO PARK Facility:[facility] Start: 01-23-2022 End: 01-24-2022 ambulatory LOPEZ HOBBS . Facility:[facility] Start: 01-07-2022 End: 01-07-[address] HOSEA OLIVA . Facility:[facility] Start: 12-26-2021 End: 12-27-2021 ambulatory LOPEZ HOBBS . Facility:[facility] Start: 12-18-2021 Telephone encounter Huyn Nazario MD Work Phone: Radiation Oncology Comment on above: Patient Update Start: 12-17-2021 End: 12-17-[address] HOSEA OLIVA . Facility:[facility] Start: 12-12-2021 End: 12-13-2021 ambulatory LOPEZ HOBBS . Facility:[facility] Start: 12-10-2021 End: 12-10-2021 Patient encounter procedure Hyun Nazario MD Work Phone: Radiation Oncology Comment on above: Malignant neoplasm o f prostate (HCC) (Primary Dx) Start: 11-04-2021 End: 11-04-2021 Patient encounter procedure Barbara JOHNSTON [facility] Start: 10-24-2021 End: 10-24-2021 ambulatory Theo Vivian Other [employer] Other Start: 10-24-2021 Office outpatient ne w 45 minutes Theo Vivian [facility] Procedures Date Procedure Procedure Detail Performing Clinician Start: 07-08-2023 FOLLOW UP IN CARDIOLOGY CHAIM GRAYSON Start: 06-18-2023 NUCLEAR STRESS TEST NGOZI MARLOW AYAD Start: 06-18-2023 Cv strs tst xers&/or rx cont ecg trcg only Chaim Grayson DO Work Phone: Start: 06-04-2023 ECG 12-LEAD CHAIM REYES Start: 06-04-2023 Ecg routine ecg w/le ast 12 lds w/i&r Chaim Grayson DO Work Phone: Start: 04-16-2023 Ankle brachial press ure index MD Shaikh Storm Work Phone: Start: 03-23-2023 Lower limb angiography MD Shaikh Storm Work Phone: Start: 03-09-2023 Urine culture MD Shaikh Storm Work Phone: Start: 03-05-2023 Pulse volume recorde r plethysmography MD Shaikh Storm Work Phone: Start: 03-04-2023 Doppler ultrasonogra phy of bilateral carotid arteries MD Shaikh Storm Work Phone: Start: 02-20-2023 XR pre/post mri xray MD Shaikh Storm Work Phone: Start: 02-20-2023 OR CAT/MRI W/ IV SED ATION (Not Applicable) MD Shaikh Storm Work Phone: Start: 02-20-2023 MRI of lumbar spine with contrast MD Shaikh Storm Work Phone: Start: 04-23-2022 Mixed beam external beam radiation therapy CLAIRE JAMES Start: 03-27-2022 Blood count complete auto&auto difrntl wbc G Jose Nazario MD Work Phone: Start: 06-06-2021 Transurethral prostatectomy Barbara JOHNSTON Bilateral cataracts (disorder) CLAIRE JAMES Colonoscopy Barbara JOHNSTON Endarterectomy CLAIRE Robins Procedure on back Barbara ROWE Plan of Treatment Date Care Activity Detail Author Start: 06-10-2026 Diabetes Screening Diabetes Screening [facility] Start: 06-10-2024 Creatinine measurement Serum Creatinine [facility] Start: 09-18-2023 ambulatory Ambulatory Facility:[facility] Start: 08-18-2023 End: 08-18-2023 Patient encounter procedure 08/18/2023 11:10 AM EDT Office Visit [facility] [address] [place] [address] Chaim Grayson DO [address] [place] [address] [facility] Start: 07-08-2023 End: 07-08-2023 Clinical Support 07/08/2023 10:30 AM EST Clinical Support [facility] [address] [place] [id number] [facility] Start: 06-04-2023 End: 06-04-2024 Alanine aminotransferase [Enzymatic activity/volume] in Serum or Plasma by With P-5'-P Alanine Aminotransferase Lab Routine Hypertension, unspecified type Bilateral carotid artery disease, unspecified type (CMS/HCC) Expected: 06/04/2023 (Approximate), Expires: 06/04/2024 [facility] Work Phone: Comment on above: Expected: 06/04/2023 (Approximate), Expi res: 06/04/2024 Start: 06-04-2023 End: 06-04-2024 Aspartate aminotransferase [Enzymatic activity/volume] in Serum or Plasma by With P-5'-P Aspartate Aminotransferase Lab Routine Hypertension, unspecified type Bilateral carotid artery disease, unspecified type (CMS/HCC) Expected: 06/04/2023 (Approximate), Expires: 06/04/2024 [facility] Work Phone: Comment on above: Expected: 06/04/2023 (Approximate), Expi res: 06/04/2024 Start: 06-04-2023 End: 06-04-2024 Basic metabolic 2000 panel - Serum or Plasma Basic Metabolic Panel Lab Routine Hypertension, unspecified type Mixed hyperlipidemia Expected: 06/04/2023 (Approximate), Expires: 06/04/2024 [facility] Work Phone: Comment on above: Expected: 06/04/2023 (Approximate), Expi res: 06/04/2024 Start: 06-04-2023 End: 06-04-2024 Lipid 1996 panel - Serum or Plasma Lipid Panel Lab Routine Mixed hyperlipidemia Expected: 06/04/2023 (Approximate), Expires: 06/04/2024 [facility] Work Phone: Comment on above: Expected: 06/04/2023 (Approximate), Expi res: 06/04/2024 Start: 06-04-2023 End: 06-04-2025 NM Heart Perfusion W stress and W radionuclide IV Nuclear Stress Test Cardiac Nuclear Medicine Routine Hypertension, unspecified type Bilateral carotid artery disease, unspecified type (CMS/HCC) Chest pressure Expected: 06/04/2023 (Approximate), Expires: 06/04/2025 [facility] Service Area Work Phone: Comment on above: Expected: 06/04/2023 (Approximate), Expi res: 06/04/2025 Start: 06-01-2023 Advance Directive Discussion Advance Directive Discussion [facility] Start: 06-01-2023 Depression Assessment Depression Assessment [facility] Start: 05-20-2023 End: 07-20-2023 Prostate specific Ag [Mass/volume] in Serum or Plasma PSA/PROSTSPECAG DIAG Lab Routine History of prostate cancer Expected: 05/20/2023, Expires: 07/20/2023 [facility] Work Phone: Comment on above: Expected: 05/20/2023, Expires: Start: 03-27-2023 Complete blood count Hemoglobin/Hematocrit [facility] Start: 03-27-2023 HEMOGLOBIN/HEMATOCRIT HEMOGLOBIN/HEMATOCRIT [facility] Start: 03-23-2023 [facility] Start: 03-09-2023 Bacteria identified in Urine by Culture [facility] Start: 03-05-2023 Pulse volume recorder plethysmography [facility] Start: 02-20-2023 End: 02-20-2023 [facility] Start: 01-30-2023 Covid-19 Vaccine ( season) Covid-19 Vaccine () [facility] Start: 01-30-2023 Influenza vaccination [facility] Start: 06-03-2022 End: 08-03-2022 Bacteria identified in Urine by Culture URINE CULTURE Microbiology Routine Hematuria, unspecified type Malignant neoplasm of prostate (HCC) Expected: 06/03/2022 (Approximate), Expires: 08/03/2022 [facility] Work Phone: Comment on above: Expected: 06/03/2022 (Approximate), Expi res: 08/03/2022 Start: 06-03-2022 End: 08-03-2022 UA DIP B/O UA DIP B/O Lab Routine Hematuria, unspecified type Malignant neoplasm of prostate (HCC) Expected: 06/03/2022 (Approximate), Expires: 08/03/2022 [facility] Work Phone: Comment on above: Expected: 06/03/2022 (Approximate), Expi res: 08/03/2022 Start: 06-01-2022 ADVANCE DIRECTIVE DISCUSSION ADVANCE DIRECTIVE DISCUSSION [facility] Start: 06-01-2022 DEPRESSION ASSESSMENT DEPRESSION ASSESSMENT [facility] Start: 04-21-2022 End: 06-21-2022 Prostate specific Ag [Mass/volume] in Serum or Plasma PSA/PROSTSPECAG DIAG Lab Routine Malignant neoplasm of prostate (HCC) Expected: 04/21/2022, Expires: 06/21/2022 [facility] Work Phone: Comment on above: Expected: 04/21/2022, Expires: 3 Start: 03-27-2022 End: 03-18-2023 CBC W Auto Differential panel - Blood CBC + DIFF Lab Routine Malignant neoplasm of prostate (HCC) Expected: 03/27/2022, Expires: 03/18/2023 [facility] Work Phone: Comment on above: Expected: 03/27/2022, Expires: 3 Start: 01-30-2022 Influenza vaccination INFLUENZA (#1) [facility] Start: 06-01-2021 ADVANCE DIRECTIVE DISCUSSION ADVANCE DIRECTIVE DISCUSSION [facility] Start: 06-01-2021 DEPRESSION ASSESSMENT DEPRESSION ASSESSMENT [facility] Start: 12-23-2020 COVID-19 VACCINE (3 - Booster for Moderna series) COVID-19 VACCINE (3 - Booster for Moderna series) [facility] Start: 04-22-2021 COVID-19 VACCINE (3 - Booster for Moderna series) COVID-19 VACCINE (3 - Booster for Moderna series) [facility] Start: 09-20-2020 COVID-19 VACCINE (3 - Moderna series) COVID-19 VACCINE (3 - Moderna series) [facility] Start: 09-20-2020 COVID-19 VACCINE (4 - Booster) COVID-19 VACCINE (4 - Booster) [facility] Start: 09-20-2020 COVID-19 Vaccine (4 - Moderna series) COVID-19 Vaccine (4 - Moderna series) [facility] Start: 2005 RSV Vaccine (1 - 1-dose 60+ series) RSV Vaccine (1 - 1-dose 60+ series) [facility] Start: 1995 Influenza vaccination LUNG CANCER SCREENING [facility] Start: 1995 Screening for malignant neoplasm of lung Lung Cancer Screening [facility] Start: 1995 SHINGRIX VACCINE (1 of 2) SHINGRIX VACCINE (1 of 2) [facility] Start: 1995 Zoster Vaccines (1 of 2) Zoster Vaccines (1 of 2) [facility] Start: 1990 DIABETES SCREEN DIABETES SCREEN [facility] Start: 1990 Diabetes Screening Diabetes Screening [facility] Start: 1967 DTaP/Tdap/Td Vaccines (1 - Tdap) DTaP/Tdap/Td Vaccines (1 - Tdap) [facility] Start: 1964 Urine microalbumin profile [facility] Start: 1963 ANNUAL PCP TEAM CHRONIC DISEASE VISIT ANNUAL PCP TEAM CHRONIC DISEASE VISIT [facility] Start: 1963 Creatinine measurement Serum Creatinine [facility] Start: 1963 HEPATITIS C SCREENING HEPATITIS C SCREENING [facility] Start: 1963 Hepatitis C screening Hepatitis C Screening [facility] Start: 1963 SERUM CREATININE SERUM CREATININE [facility] Start: 1957 Adult depression screening assessment DEPRESSION SCREENING [facility] Start: 1951 Pneumococcal Vaccine: 65+ (1 - PCV) Pneumococcal Vaccine: 65+ (1 - PCV) [facility] Start: 1951 Pneumococcal Vaccine: 65+ (1 of 2 - PCV) Pneumococcal Vaccine: 65+ (1 of 2 - PCV) [facility] Start: 1951 Pneumococcal Vaccine: 65+ Years (1 - PCV) Pneumococcal Vaccine: 65+ Years (1 - PCV) [facility] Start: 1951 PNEUMOCOCCAL: 65+ (1 - PCV) PNEUMOCOCCAL: 65+ (1 - PCV) [facility] Start: 1945 Lipid panel Lipid Panel [facility] Start: 1945 Medicare Annual Wellness Visit Medicare Annual Wellness Visit (AWV) [facility] CT SIM PLANNING RADI ATION ONCOLOGY CT SIM PLANNING RADIATION ONCOLOGY Radiology Routine Malignant neoplasm of prostate (HCC) Ordered: 03/03/2022 [facility] Work Phone: Comment on above: Ordered: 03/03/2022 End: 12-19-2023 Mri spinal canal lumbar w/o & w/contr matrl MRI LUMBAR SPINE WO/W IVCON Radiology Routine Spinal stenosis of lumbar region, unspecified whether neurogenic claudication present 1 Occurrences starting 11/19/2022 until 12/19/2023 [facility] Work Phone: Comment on above: 1 Occurrences starting 11/19/2022 until 12/19/2023 End: 12-21-2023 Mri spinal canal lumbar w/o & w/contr matrl MRI LUMBAR SPINE WO/W IVCON Radiology Routine Spinal stenosis of lumbar region without neurogenic claudication 1 Occurrences starting 11/21/2022 until 12/21/2023 [facility] Work Phone: Comment on above: 1 Occurrences starting 11/21/2022 until 12/21/2023 End: 02-05-2024 Mri spinal canal lumbar w/o & w/contr matrl MRI LUMBAR SPINE WO/W IVCON Radiology Routine Spinal stenosis of lumbar region, unspecified whether neurogenic claudication present 1 Occurrences starting 01/06/2023 until 02/05/2024 [facility] Work Phone: Comment on above: 1 Occurrences starting 01/06/2023 until 02/05/2024 Patient Education [facility] Work Phone: Patient referral [facility] Work Phone: [facility] Immunizations Immunization Date Immunization Notes Care Provider Shubham adkins 07-26-2020 SARS-CoV-2 (COVID-19 ) mRNA-1273 vaccine Barbara JOHNSTON [facility] 06-28-2020 SARS-CoV-2 (COVID-19 ) mRNA-1273 vaccine Barbara JOHNSTON [facility] 06-25-2020 COVID-19 mRNA-1273 (Moderna) MD Shaikh Storm Work Phone: [facility] NEGATED: Highlighted row has not occurred!04-21-2023 influenza virus vaccine, unspecified formulation CLAIRE BRITNI [facility] Payers Date Payer Category Payer Unknown [id number] 2022 Private Health Insurance HUMANA HUMANA HMOX [id number] 2022-Present [address] [place], [place] [address] [id number] 2021 Medicare HUMANA MEDICARE HUMANA GOLD PLUS [id number] 2021-Present [phone] [place] [address] HMO [id number] 2021 Medicare [id number] 1959 Private Health Insurance [id number] 2.16.840.1.054357.19 1959 Self-pay [id number] 1945 Unknown [id number] 2.16.840.1.391528.3.579.2 .356 1945 Unknown [id number] 2.16.840.1.299101.3.579.2 .593 1945 Unknown [id number] 2.16.840.1.440311.3.579.2 .593 1945 Unknown [id number] 2.16.840.1.228840.3.579.2 .593 1945 Unknown [id number] 2.16.840.1.904162.3.579.2 .593 1945 Unknown [id number] 2.16.840.1.519374.3.579.2 .593 1945 Unknown [id number] 2.16.840.1.184260.3.579.2 .593 1945 Unknown [id number] 2.16.840.1.426625.3.579.2 .593 1945 Unknown [id number] 2.16.840.1.540538.3.579.2 .593 1945 Unknown [id number] 2.16.840.1.722011.3.579.2 .593 1945 Unknown [id number] 2.16.840.1.154690.3.579.2 .593 1945 Unknown [id number] 2.16.840.1.717001.3.579.2 .593 1945 Unknown [id number] 2.16.840.1.469201.3.579.2 .593 1945 Unknown [id number] 2.16.840.1.046076.3.579.2 .593 1945 Unknown [id number] 2.16.840.1.412901.3.579.2 .593 1945 Unknown [id number] 2.16.840.1.193270.3.579.2 .1246 1945 Unknown [id number] 2.16.840.1.713863.3.579.2 .1246 1945 Unknown [id number] 2.16.840.1.728896.3.579.2 .1246 1945 Unknown [id number] 2.16.840.1.946183.3.579.2 .1246 1945 Unknown [id number] 2.16.840.1.028585.3.579.2 .1246 1945 Unknown [id number] 2.16.840.1.300891.3.579.2 .1259 1945 Unknown [id number] 2.16.840.1.156094.3.579.2 .1259 1945 Unknown [id number] 2.16.840.1.493982.3.579.2 .1244 1945 Unknown [id number] 2.16.840.1.076618.3.579.2 .1244 1945 Unknown [id number] 2.16.840.1.087364.3.579.2 .727 1945 Unknown [id number] 2.16.840.1.365255.3.579.2 .727 1945 Unknown [id number] 2.16.840.1.655733.3.579.2 .727 1945 Unknown [id number] 2.16.840.1.487675.3.579.2 .727 1945 Unknown [id number] 2.16.840.1.922697.3.579.2 .727 1945 Unknown [id number] 2.16.840.1.289260.3.579.2 .727 1945 Unknown [id number] 2.16.840.1.622294.3.579.2 .727 1945 Unknown [id number] 2.16.840.1.859242.3.579.2 .727 Unknown [id number] 2.16.840.1.789577.3.579.2 .531 Unknown [id number] 2.16.840.1.931773.3.579.2 .531 Unknown [id number] 2.16.840.1.375485.3.579.2 .531 Unknown [id number] 2.16.840.1.401855.3.579.2 .531 Unknown [id number] 2.16.840.1.593785.3.579.2 .531 Unknown [id number] 2.16.840.1.015051.3.579.2 .531 Unknown [id number] 2.16.840.1.624218.3.579.2 .531 Unknown [id number] 2.16.840.1.898239.3.579.2 .531 Unknown [id number] 2.16.840.1.150773.3.579.2 .531 Unknown [id number] 2.16.840.1.345645.3.579.2 .531 Social History Date Type Detail Facility Start: 11-04-2021 End: 04-21-2023 Tobacco smoking status Heavy tobacco smoker (finding) [employer] Other Start: 11-26-2021 End: 03-23-2023 Tobacco smoking status Smoker (finding) [facility] Start: 05-13-2022 End: 06-04-2023 Sex Assigned At Male [employer] Other Start: 12-10-2021 End: 06-04-2023 Tobacco smoking status NHIS Smokes tobacco daily [facility] Start: 12-10-2021 End: 06-04-2023 Cigarettes smoked current (pack per day) - Reported 1 [facility] Start: 12-10-2021 End: 06-04-2023 Tobacco use and exposure Smokeless tobacco non-user [facility] Start: 12-10-2021 End: 06-04-2023 Alcohol intake Ex-drinker (finding) [facility] Start: 12-10-2021 End: 03-18-2022 Tobacco Comment 2 ppd x 20 yrs, 1 ppd x 40 yrs [facility] Start: 1945 Sex Assigned At Not on file [facility] Start: 11-30-2021 End: 06-18-2023 Exposure to SARS-CoV-2 (event) Not sure [facility] History of tobacco use Cigarette Smoker [facility] Start: 1945 Sex Assigned At Male [facility] Tobacco smoking status Never [facility] Start: 01-15-2023 Gender identity Identifies as male gender (finding) [facility] Start: 01-15-2023 Sexual orientation Heterosexual (finding) [facility] Start: 06-04-2023 Tobacco Comment Trying to quit [facility] Work Phone: Medical Equipment Procedure Code Equipment Code Equipment Origin al Text Equipment Identifier Dates Angiogram, lower extremity, left Multiple peripheral artery stent, bare-metal [id number] [facility] Start: 03-23-2023 Goals Date Patient Goal Desired Activity /State Functional Status Date Assessment Result Facility 04-21-2023 Functional Status N/A [facility] 02-11-2023 Functional Status N/A [facility] 12-03-2022 Functional Status N/A [facility] Clinical Notes 10-24-2021 to 06-14-2023 Kodi Reynolds MD - 06/14/2023 4:23 PM Reba HarperBert - 06/12/2023 11:03 AM Ever Grayson DO - 06/04/2023 9:50 AM ESTPatient Instructions Note Date & Type Note Facility 06-14-2023 Note HNO ID: [id number] Author: KODI REYNOLDS MD Service: ? Author Type: Physician Type: Progress Notes Filed: 06/14/2023 16:36 Note Text: SPINE SURGERY NEW PATIENT This is an in-person visit. PCP: Shaikh Dotty MD REFERRING PROVIDER: Gerber ALBA SUBJECTIVE HISTORY OF PRESENT ILLNESS: Yesenia Broussard is a 77 year old male presenting with spouse. CHIEF COMPLAINT: Back and leg pain, no radicular leg pain, inability to ambulate far distances PRECIPITATING EVENT: None DURATION OF SYMPTOMS: Greater Than 1 Year Is a very pleasant 77-year-old male who recently moved from [place] to [place]. He reports longstanding history of back and leg pain. He currently is smoking multiple packs per day, he is on narcotics 3 times a day per pain management. He was evaluated via video visit by an outside hospital surgeon and offered an anterior lumbar interbody fusion followed by posterior instrumentation. He presents today for my surgical opinion. Of note patient did have a prior L4-5 decompression in 2018. He reports an inability to ambulate far distances before he needs to stop and sit down. He reports that he was diagnosed with vascular claudication and recently underwent femoral bypass with significant improvement in his bilateral lower extremity sensation and heaviness with ambulation. At today's encounter he currently denies any significant left leg pain at rest, with prolonged ambulation he continues to report bilateral gluteal heaviness. Back and leg pain, Back pain > leg pain, R>L DERMATOMAL DISTRIBUTION: L4, L5 AMBULATORY STATUS: Independent Community Distances ANTIPLATELET OR ANTICOAGULATION STATUS: No PREVIOUS CONSERVATIVE TREATMENTS: Nsaids Narcotics PT HEP PREVIOUS SPINAL SURGERY: L4/5 decompression, 2018 ACTIVE PROBLEM LIST Prostate Cancer (Hcc) Stage 3 Chronic Kidney Disease (Hcc) PAST MEDICAL HISTORY Diagnosis Date Claustrophobia HTN (hypertension) Hypercholesterolemia PAST SURGICAL HISTORY Procedure Laterality Date CAROTID ENDARTERECTOMY CC CORONARY STENT PAST SURGICAL HISTORY OF diverticulitis-colon resection PAST SURGICAL HISTORY OF L5 decompression REPAIR OF SHOULDER Bilateral TRANSURETHRAL ELEC-SURG PROSTATECTOM FAMILY HISTORY Problem Relation Age of Onset Ovarian cancer Sister Social History Tobacco Use Smoking status: Every Day Packs/day: 1.00 Years: 60.00 Additional pack years: 0.00 Total pack years: 60.00 Types: Cigarettes Smokeless tobacco: Never Tobacco comments: 2 ppd x 20 yrs, 1 ppd x 40 yrs Substance Use Topics Alcohol use: Not Currently Drug use: Never ALLERGIES No Known Allergies MEDICATIONS: ergocalciferol, vitamin D2, (VITAMIN D2 ORAL) Take by mouth. pregabalin (LYRICA) 75 mg capsule Take 1 capsule by mouth once daily. At bedtime. Terazosin HCl (HYTRIN) 10 mg capsule aspirin 81 mg cap Take by mouth. pravastatin (PRAVACHOL) 10 mg tablet pravastatin 10 mg tablet atenolol (TENORMIN) 50 mg tablet atenolol 50 mg tablet (Patient not taking: Reported on 05/19/2023) lisinopril (ZESTRIL, PRINIVIL) 20 mg tablet q 24 HR. HYDROcodone-acetaminophen (NORCO) 5-325 mg per tablet amLODIPine (NORVASC) 10 mg tablet amlodipine 10 mg tablet baclofen (LIORESAL) 10 mg tablet baclofen 10 mg tablet REVIEW OF SYSTEMS: All are negative except those stated in the History of Present illness. Patient Entered Questionnaires Spine Questions 01/17/2023 06/10/2023 Pain Location: Lower back Lower back Pain Duration: More than 5 years - Pain over last 6 months: Every day or nearly every day in the past 6 months - Symptoms from neck/cervical spine: No Yes Employment Status: Retired Retired Involved in law suit/legal claim: No - Spine Red Flags 01/17/2023 Any type of cancer: Yes Unexplained fever: No Bowel or bladder disfunction: No Unintentional weight loss: No Osteoporosis: No Neck Questionnaires 06/10/2023 Benzel Modified ESTELA Score 15 (A lower score indicates increased pain and issues.) PROMIS Score Percentiles Physical Health 01/17/2023 06/10/2023 Physical Function Percentile 4 8 Sleep Percentile 34 14 Fatigue Percentile 2 12 Pain Interference Percentile 1 4 PROMIS SOCIAL ROLE SCORE 01/17/2023 06/10/2023 Social Role Satisfaction Percentile 3 14 PROMIS Global Health Scale 11/18/2022 11/18/2022 05/19/2023 Physical Health Percentile 66 66 41 Mental Health Percentile 43 43 13 Percentiles provide an indication of how the patient's score ranks in relation to the general population. Higher percentile rankings indicate better function/quality of life. 50th percentile is the average of the general population and indicates half of respondents had a worse score. Depression Screening: PHQ-9 01/17/2023 05/19/2023 06/10/2023 Score 15 11 7 PHQ-9 Self-harm Question 01/17/2023 05/19/2023 06/10/2023 Thoughts that you would be better off , or of hurting yourself in some way 0 0 0 PHQ- (more content not included)... [facility] 06-14-2023 History of Present illness Narrative SPINE SURGERY NEW PATIENT This is an in-person visit. PCP: Shaikh Dotty MD REFERRING PROVIDER: Gerber ALBA SUBJECTIVE HISTORY OF PRESENT ILLNESS: Yesenia Broussard is a 77 year old male presenting with spouse. CHIEF COMPLAINT: Back and leg pain, no radicular leg pain, inability to ambulate far distances PRECIPITATING EVENT: None DURATION OF SYMPTOMS: Greater Than 1 Year Is a very pleasant 77-year-old male who recently moved from [place] to [place]. He reports longstanding history of back and leg pain. He currently is smoking multiple packs per day, he is on narcotics 3 times a day per pain management. He was evaluated via video visit by an outside hospital surgeon and offered an anterior lumbar interbody fusion followed by posterior instrumentation. He presents today for my surgical opinion. Of note patient did have a prior L4-5 decompression in 2018. He reports an inability to ambulate far distances before he needs to stop and sit down. He reports that he was diagnosed with vascular claudication and recently underwent femoral bypass with significant improvement in his bilateral lower extremity sensation and heaviness with ambulation. At today's encounter he currently denies any significant left leg pain at rest, with prolonged ambulation he continues to report bilateral gluteal heaviness. Back and leg pain, Back pain > leg pain, R>L DERMATOMAL DISTRIBUTION: L4, L5 AMBULATORY STATUS: Independent Community Distances ANTIPLATELET OR ANTICOAGULATION STATUS: No PREVIOUS CONSERVATIVE TREATMENTS: Nsaids Narcotics PT HEP PREVIOUS SPINAL SURGERY: L4/5 decompression, 2018 ACTIVE PROBLEM LIST Prostate Cancer (Hcc) Stage 3 Chronic Kidney Disease (Hcc) PAST MEDICAL HISTORY Diagnosis Date Claustrophobia HTN (hypertension) Hypercholesterolemia PAST SURGICAL HISTORY Procedure Laterality Date CAROTID ENDARTERECTOMY CC CORONARY STENT PAST SURGICAL HISTORY OF diverticulitis-colon resection PAST SURGICAL HISTORY OF L5 decompression REPAIR OF SHOULDER Bilateral TRANSURETHRAL ELEC-SURG PROSTATECTOM FAMILY HISTORY Problem Relation Age of Onset Ovarian cancer Sister Social History Tobacco Use Smoking status: Every Day Packs/day: 1.00 Years: 60.00 Additional pack years: 0.00 Total pack years: 60.00 Types: Cigarettes Smokeless tobacco: Never Tobacco comments: 2 ppd x 20 yrs, 1 ppd x 40 yrs Substance Use Topics Alcohol use: Not Currently Drug use: Never ALLERGIES No Known Allergies MEDICATIONS: ergocalciferol, vitamin D2, (VITAMIN D2 ORAL) Take by mouth. pregabalin (LYRICA) 75 mg capsule Take 1 capsule by mouth once daily. At bedtime. Terazosin HCl (HYTRIN) 10 mg capsule aspirin 81 mg cap Take by mouth. pravastatin (PRAVACHOL) 10 mg tablet pravastatin 10 mg tablet atenolol (TENORMIN) 50 mg tablet atenolol 50 mg tablet (Patient not taking: Reported on 05/19/2023) lisinopril (ZESTRIL, PRINIVIL) 20 mg tablet q 24 HR. HYDROcodone-acetaminophen (NORCO) 5-325 mg per tablet amLODIPine (NORVASC) 10 mg tablet amlodipine 10 mg tablet baclofen (LIORESAL) 10 mg tablet baclofen 10 mg tablet REVIEW OF SYSTEMS: All are negative except those stated in the History of Present illness. Patient Entered Questionnaires Spine Questions 01/17/2023 06/10/2023 Pain Location: Lower back Lower back Pain Duration: More than 5 years - Pain over last 6 months: Every day or nearly every day in the past 6 months - Symptoms from neck/cervical spine: No Yes Employment Status: Retired Retired Involved in law suit/legal claim: No - Spine Red Flags 01/17/2023 Any type of cancer: Yes Unexplained fever: No Bowel or bladder disfunction: No Unintentional weight loss: No Osteoporosis: No Neck Questionnaires 06/10/2023 Benzel Modified ESTELA Score 15 (A lower score indicates increased pain and issues.) PROMIS Score Percentiles Physical Health 01/17/2023 06/10/2023 Physical Function Percentile 4 8 Sleep Percentile 34 14 Fatigue Percentile 2 12 Pain Interference Percentile 1 4 PROMIS SOCIAL ROLE SCORE 01/17/2023 06/10/2023 Social Role Satisfaction Percentile 3 14 PROMIS Global Health Scale 11/18/2022 11/18/2022 05/19/2023 Physical Health Percentile 66 66 41 Mental Health Percentile 43 43 13 Percentiles provide an indication of how the patient's score ranks in relation to the general population. Higher percentile rankings indicate better function/quality of life. 50th percentile is the average of the general population and indicates half of respondents had a worse score. Depression Screening: PHQ-9 01/17/2023 05/19/2023 06/10/2023 Score 15 11 7 PHQ-9 Self-harm Question 01/17/2023 05/19/2023 06/10/2023 Thoughts that you would be better off , or of hurting yourself in some way 0 0 0 PHQ-9 Self-Harm (Item 9) response options: 0 Not at all 1 Several days 2 More than half the days 3 Nearly every day PHQ-9 Levels: 0-4 No to mild depression 5-9 Mild depression 10-14 Moderate depression 15-19 Moderately severe depression 20-27 Severe depression OBJECTIVE: PHYSICAL EXAM Ht 177.8 cm (5' 10 ) Wt 88.9 kg (196 lb) BMI 28.12 kg/m Spine Exam Drain(s): none Incision: well healed Neck No obvious deformity, normal ROM Back No stepoffs/deformities. No tenderness or instability to palpation along spinous processes or paravertebral musculature Upper Extremities UE BICEPS TRICEPS DELTS Wrist Ext Wrist Flex Display Designer Outside HI R 5 5 5 5 5 5 5 L 5 5 5 5 5 5 5 Sensation to light touch intact to bilateral upper extremities +2 radial pulse Right: Triceps, Biceps, Brachial normoreflexic Left: Triceps, Biceps, Brachial normoreflexic Leon's: negative bilaterally Lower Extremities LE Hip Flex Knee Flex Knee Extend Plantarflex Dorsiflex EHL R 5 5 5 5 5 5 L 5 5 5 5 5 5 Sensation intact to light tough in bilateral lower extremities in spn, dpn, sural, saphenous, and tibial nerves. Right: Patellar, Ankle normoreflexic Left: Patellar, Ankle normoreflexic Clonus: 1 beat bilaterally Toe walk ABLE Heel Walk able Tandem able Ambulatory status: independent NEURO TESTS: DATA REVIEW [facility] records independently reviewed MRI with Grade 1 L4/5 spondy with L>R foraminal stenosis Moderate central canal stenosis at this level, L3/4 with Right sided facet cyst L5/S1 with Right sided L5 foraminal stenosis Xrays lumbar with preserved lumbar lordosis and disc space collapse at L4/5 and L5/S1 ASSESSMENT/PLAN (M43.16) Spondylolisthesis of lumbar region (primary encounter diagnosis) Yesenia Broussard will continue with medical management of his/her condition. 1. Long discussion was had with Dexter and his regarding his exam, imaging, and complaints. We discussed that at this point I do not feel that he is optimized for any potential surgery. We discussed that currently his smoking would need to be stopped completely as I believe he may require a lumbar fusion due to his current alignment. 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 Given his smoking in conjunction with his narcotic use, I will see him back in 3 months for repeat examination. In the meantime I encouraged Dexter to continue with a home exercise program to optimize him for a likely surgical intervention in the future. If we decide upon a surgery, he will need to undergo CT lumbar to evaluate for osseus structures given his prior decompression. 2. Follow up: Following above Imaging Ordered: None The majority of the visit was spent counseling and/or coordinating care for the patient. The patient was counseled regarding lumbar stenosis with neurogenic claudication. Total face to face time was 30 minutes. SIGNATURE: Kodi Reynolds MD PATIENT NAME: Yesenia Broussard DATE: June 14, 2023 TIME: 4:23 PM PAGER: Pt has been identified by name and birthdate: Yes Allergies reviewed: Yes Medication - prescribed and OTC reviewed and updated: Yes Latex allergy: no. Have you had a recent problem with pain? Yes LOCATION: Lower back Pain/ Bilateral hip PAIN SCALE: 6 on a scale of 0-10 PAIN CHARACTER: pressure DURATION: (How long have you had the pain?) 10 years FREQUENCY: (How often does the pain occur?) occurs constantly AGGRAVATING FACTORS: activity, standing, walking, and mornings ALLEVIATING FACTORS: resting and application of heat Medications: See medication reconciliation list in EpicCare MEDICATIONS: Hydrocodone, Gabapentin 2018 back surgery with a 50-70% relieve PT done 2021 How is your appetite?: normal Do you feel safe in the home? Yes Do you have concerns about falling or have you fallen in the past year? No Do you have difficulty performing or completing routine daily living activities? No Bert Harper documented in this encounter [facility] 06-12-2023 Note HNO ID: [id number] Author: ?, ?, ? Service: ? Author Type: ? Type: Progress Notes Filed: 06/14/2023 16:36 Note Text: Pt has been identified by name and birthdate: Yes Allergies reviewed: Yes Medication - prescribed and OTC reviewed and updated: Yes Latex allergy: no. Have you had a recent problem with pain? Yes LOCATION: Lower back Pain/ Bilateral hip PAIN SCALE: 6 on a scale of 0-10 PAIN CHARACTER: pressure DURATION: (How long have you had the pain?) 10 years FREQUENCY: (How often does the pain occur?) occurs constantly AGGRAVATING FACTORS: activity, standing, walking, and mornings ALLEVIATING FACTORS: resting and application of heat Medications: See medication reconciliation list in EpicCare MEDICATIONS: Hydrocodone, Gabapentin 2018 back surgery with a 50-70% relieve PT done 2021 How is your appetite?: normal Do you feel safe in the home? Yes Do you have concerns about falling or have you fallen in the past year? No Do you have difficulty performing or completing routine daily living activities? No Bert Harper [facility] 06-04-2023 History of Present illness Narrative Cardiology Consultation- New Consult Reason for referral: 77-year-old gentleman seen in cardiology consultation at the request of primary care physician Dr. Storm, for further evaluation regarding chest discomfort. Patient moved from [place] to the local area approximately 2 years ago. He has a history of previous inferior OK in the mid with revascularization of the RCA in [place] followed by stroke with subsequent bilateral carotid revascularizations. He also has peripheral vascular disease with recent left lower extremity revascularization with Dr. Mchugh with a overall clinically successful result. He now has resting and exertional chest discomfort however he notes that approximately 3-4 times in the last year, not routinely. Comorbidities noted for hypertension, ongoing tobacco use (he is actively trying to quit), hyperlipidemia, presumed COPD Today's ECG reveals sinus rhythm with right bundle branch block, left axis. We have counseled him today extensively on smoking cessation, maintaining appropriate GDMT as reviewed, we will proceed with Lexiscan stress imaging to further assess for ischemia given his risk factors and previous OK and revascularization on follow-up thereafterwards HPI: Yesenia Renteria is a 77 y.o. male Past Medical History: He has a past medical history of Abnormal ECG (05-20-2023), Cancer ([facility]) (07/07/2021), Chronic kidney disease, Coronary artery disease, Hypertension, Myocardial infarction ([facility]) (10/30/1996), and Stroke ([facility]) (01/31/12). Surgical History: He has a past surgical history that includes Coronary stent placement (1996); Carotid stent (Mar 2012); and Vein Surgery (Mar 2023). Family History: Family History Problem Relation Name Age of Onset Heart attack Mother Cynthia Elliott Social History: Social History Tobacco Use Smoking status: Every Day Packs/day: 0.50 Years: 60.00 Additional pack years: 0.00 Total pack years: 30.00 Types: Cigarettes Smokeless tobacco: Never Tobacco comments: Trying to quit Substance Use Topics Alcohol use: Not Currently Allergies: Ezetimibe and Tsmrlsn-iwe-dsg reductase inhibitors Current Medications: Current Outpatient Medications: amLODIPine (Norvasc) 10 mg tablet, Take 1 tablet (10 mg) by mouth once daily., Disp: , Rfl: clopidogrel (Plavix) 75 mg tablet, Take 1 tablet (75 mg) by mouth once daily., Disp: , Rfl: desmopressin (DDAVP) 0.1 mg tablet, Take 1 tablet (100 mcg) by mouth once daily at bedtime., Disp: , Rfl: gabapentin (Neurontin) 100 mg capsule, Take 1 capsule (100 mg) by mouth once daily at bedtime., Disp: , Rfl: lisinopril 20 mg tablet, Take 1 tablet (20 mg) by mouth once daily., Disp: , Rfl: pravastatin (Pravachol) 40 mg tablet, Take 1 tablet (40 mg) by mouth once daily at bedtime., Disp: , Rfl: sildenafil (Viagra) 50 mg tablet, Take 1 tablet (50 mg) by mouth if needed., Disp: , Rfl: aspirin 81 mg EC tablet, Take 1 tablet (81 mg) by mouth once daily., Disp: , Rfl: baclofen (Lioresal) 10 mg tablet, Take 1 tablet (10 mg) by mouth once daily at bedtime., Disp: , Rfl: ergocalciferol (Vitamin D-2) 1.25 MG (83444 UT) capsule, Take 1 capsule (1,250 mcg) by mouth 1 (one) time per week., Disp: , Rfl: HYDROcodone-acetaminophen ([place]) 7.5-325 mg tablet, Take 1 tablet by mouth 3 times a day as needed., Disp: , Rfl: Vitals: Visit Vitals BP 154/84 (BP Location: Left arm, Patient Position: Sitting) Pulse 83 Ht 1.778 m (5' 10 ) Wt 89.8 kg (198 lb) BMI 28.41 kg/m Smoking Status Every Day BSA 2.11 m EKG done in office today Review of Systems Cardiovascular: Positive for chest pain. All other systems reviewed and are negative. Objective Physical Exam Constitutional: Appearance: Normal appearance. He is normal weight. HENT: Nose: Nose normal. Neck: Vascular: No carotid bruit. Cardiovascular: Rate and Rhythm: Normal rate. Pulses: Normal pulses. Heart sounds: Normal heart sounds. Pulmonary: Effort: Pulmonary effort is normal. Abdominal: General: Bowel sounds are normal. Palpations: Abdomen is soft. Genitourinary: Rectum: Normal. Musculoskeletal: General: Normal range of motion. Cervical back: Normal range of motion. Right lower leg: No edema. Left lower leg: No edema. Skin: General: Skin is warm and dry. Neurological: General: No focal deficit present. Mental Status: He is alert. Psychiatric: Mood and Affect: Mood normal. Behavior: Behavior normal. Thought Content: Thought content normal. Judgment: Judgment normal. Assessment and Plan: No diagnosis found. Scribe Attestation By signing my name below, I, Martin Guadarrama LPN attest that this documentation has been prepared under the direction and in the presence of Chaim Grayson DO. documented in this encounter [facility] Work Phone: 06-04-2023 Instructions Yunier Mathur MA - 06/04/2023 9:50 AM EST Please bring all medicines, vitamins, and herbal supplements with you when you come to the office. Prescriptions will not be filled unless you are compliant with your follow up appointments or have a follow up appointment scheduled as per instruction of your physician. Refills should be requested at the time of your visit. documented in this encounter [facility] Work Phone: 06-04-2023 Evaluation note Diagnosis Hypertension, unspecified type Stage 3 chronic kidney disease, unspecified whether stage 3a or 3b CKD (CMS/HCC) Mixed hyperlipidemia Bilateral carotid artery disease, unspecified type (CMS/HCC) Smoker Tobacco use disorder Chest pressure Other chest pain documented in this encounter [facility] Work Phone: [phone]) 630-634612-20-2023 Miscellaneous Notes* Telephone Encounter - Claire Koroma - 05/20/2023 9:14 AM EST Criselda- records were not sent, so we shouldn't have to call and cancel. * Telephone Encounter - Diane Parada LPN - 05/20/2023 9:08 AM EST Mrs. Broussard called stating they contacted one of Dexter's previous physicians at [facility] spine clinic and he will arrange for Dexter to see [facility] neurosurgeon. Please cancel the referral to [facility] neurosurgeon perpatient request. Diane Parada RN * Telephone Encounter - Criselda Castle - 05/19/2023 2:11 PM EST Neelam when order is signed can you please send records to Dr Marvin at [facility] thank you! Facesheet in your box [facility] NoteHNO ID: [id number] Author: Hyun Nazario MD Service: ? Author Type: Physician Type: Progress Notes Filed: 05/28/2023 3:05 PM Note Text: Radiation Oncology - Follow Up Note PATIENT NAME: Yesenia Broussard PATIENT DIAGNOSIS: Prostate adenocarcinoma, initial PSA 9.95, biopsy Nicola score 3 + 4 = 7 (grade group 2), clinical stage T1b, N0, M0, stage IIB [T1-T2, N0, M0, PSA <20, GG 2] (AJCC 8th ed.), s/p TURP. Prostate cancer (C61), 2019 NCCN Risk Group: Unfavorable Intermediate Risk Group RADIATION SUMMARY: DATES OF TREATMENT: 03/18/2022- 04/23/2022 AREA TREATED: Pelvis and Prostate DELIVERED DOSE: Area: pelvis/ prostate 7000 cGy in 28 fractions, 2 Arcs, IMRT, 10 MV with daily CBCT TOTAL: 7000 cGy in 28 fractions ELAPSED TIME: 36 days. INTERVAL HISTORY: Doing well. Denies any new problems or concerns. Bladder function much improved. PSA HISTORY: PSA (ng/mL) Date Value 05/11/2023 0.43 11/17/2022 0.50 PSA. (no units) Date Value 05/09/2022 2.810 ALLERGIES No Known Allergies ergocalciferol, vitamin D2, (VITAMIN D2 ORAL) Take by mouth. pregabalin (LYRICA) 75 mg capsule Take 1 capsule by mouth once daily. At bedtime. HYDROcodone-Acetaminophen (NORCO) 7.5-325 mg per tablet TAKE 1 TABLET BY MOUTH THREE TIMES DAILY NEEDED MUST LAST 30 DAYS Terazosin HCl (HYTRIN) 10 mg capsule aspirin 81 mg cap Take by mouth. pravastatin (PRAVACHOL) 10 mg tablet pravastatin 10 mg tablet lisinopril (ZESTRIL, PRINIVIL) 20 mg tablet q 24 HR. HYDROcodone-acetaminophen (NORCO) 5-325 mg per tablet amLODIPine (NORVASC) 10 mg tablet amlodipine 10 mg tablet baclofen (LIORESAL) 10 mg tablet baclofen 10 mg tablet pregabalin (LYRICA) 50 mg capsule Take 50 mg by mouth two times a day. atenolol (TENORMIN) 50 mg tablet atenolol 50 mg tablet (Patient not taking: Reported on 05/19/2023) REVIEW OF SYSTEMS: D/N = 5-6/2-4 Hematuria: none Dysuria: none Incontinence: Yes Urgency: mild Catheter use: none Medications to aid urination: y - Total AUA Score: 12 Bowel movement frequency: 1/day Bowel movement quality: normal Blood per rectum: none PHYSICAL EXAM: BP 135/78 Pulse 83 Temp 36.9 ?C (98.4 ?F) Resp 16 Wt 89.9 kg (198 lb 3.1 oz) SpO2 97% BMI 29.06 kg/m? KPS: 90 General Appearance: Alert and oriented. No acute distress. Rectal exam is deferred. ASSESSMENT/PLAN: Prostate adenocarcinoma, initial PSA 9.95, biopsy [place] score 3 + 4 = 7 (grade group 2), clinical stage T1b, N0, M0, stage IIB [T1-T2, N0, M0, PSA <20, GG 2] (AJCC 8th ed.), s/p definitive radiation completed April 2022. 1. Prostate cancer. Patient is doing well with a durable PSA response. He has continued follow-up with urology. Otherwise plan to see patient back in 6 months repeat PSA. 2. Spinal stenosis, lumbar spine. Will help coordinate neurosurgical referral for patient. Signed by: Hyun Nazario MD cc: Shaikh Dotty [address] [place] [address] [facility] Miscellaneous Notes* Telephone Encounter - Julianna Yuan RN - 05/19/2023 10:45 AM EST Patient is requesting referral to Surgeon. He looks like had MRI of Lumbar spine on 02/20/2023 but no images in system. We do have report. [facility] Discharge instructions Patient Education 04/21/2023 09:12:49 Erectile Dysfunction Erectile Dysfunction Erectile dysfunction (ED) is the inability to get or keep an erection in order to have sexual intercourse. ED is considered a symptom of an underlying disorder and is not considered a disease. ED mayinclude: Inability to get an erection. Lack of enough hardness of the erection to allow penetration. Loss of erection before sex is finished. What are the causes? This condition may be caused by: Physical causes, such as: ?Artery problems. This may include heart disease, high blood pressure, atherosclerosis, and diabetes. ?Hormonal problems, such as low testosterone. ?Obesity. ?Nerve problems. This may include back or pelvic injuries, multiple sclerosis, Parkinson's disease,spinal cord injury, and stroke. Certain medicines, such as: ?Pain relievers. ?Antidepressants. ?Blood pressure medicines and water pills (diuretics). ?Cancer medicines. ?Antihistamines. ?Muscle relaxants. Lifestyle factors, such as: ?Use of drugs such as marijuana, cocaine, or opioids. ?Excessive use of alcohol. ?Smoking. ?Lack of physical activity or exercise. Psychological causes, such as: ?Anxiety or stress. ?Sadness or depression. ?Exhaustion. ?Fear about sexual performance. ?Guilt. What are the signs or symptoms? Symptoms of this condition include: Inability to get an erection. Lack of enough hardness of the erection to allow penetration. Loss of the erection before sex is finished. Sometimes having normal erections, but with frequent unsatisfactory episodes. Low sexual satisfaction in either partner due to erection problems. A curved penis occurring with erection. The curve may cause pain, or the penis may be too curved toallow for intercourse. Never having nighttime or morning erections. How is this diagnosed? This condition is often diagnosed by: Performing a physical exam to find other diseases or specific problems with the penis. Asking you detailed questions about the problem. Doing tests, such as: ?Blood tests to check for diabetes mellitus or high cholesterol, or to measure hormone levels. ?Other tests to check for underlying health conditions. ?An ultrasound exam to check for scarring. ?A test to check blood flow to the penis. Doing a sleep study at home to measure nighttime erections. How is this treated? This condition may be treated by: Medicines, such as: ?Medicine taken by mouth to help you achieve an erection (oral medicine). ?Hormone replacement therapy to replace low testosterone levels. ?Medicine that is injected into the penis. Your health care provider may instruct you how to give yourself these injections at home. ?Medicine that is delivered with a short applicator tube. The tube is inserted into the opening at the tip of the penis, which is the opening of the urethra. A tiny pellet of medicine is put in the urethra. The pellet dissolves and enhances erectile function. This is also called MUSE (medicated urethral system for erections) therapy. Vacuum pump. This is a pump with a ring on it. The pump and ring are placed on the penis and used to create pressure that helps the penis become erect. Penile implant surgery. In this procedure, you may receive: ?An inflatable implant. This consists of cylinders, a pump, and a reservoir. The cylinders can be inflated with a fluid that helps to create an erection, and they can be deflated after intercourse. ?A semi-rigid implant. This consists of two silicone rubber rods. The rods provide some rigidity. They are also flexible, so the penis can both curve downward in its normal position and become straight for sexual intercourse. Blood vessel surgery to improve blood flow to the penis. During this procedure, a blood vessel froma different part of the body is placed into the penis to allow blood to flow around (bypass) damaged or blocked blood vessels. Lifestyle changes, such as exercising more, losing weight, and quitting smoking. Follow these instructions at home: Medicines Take [id number]-[id number] and prescription medicines only as told by your health care provider. Do not increase the dosage without first discussing it with your health care provider. If you are using self-injections, do injections as directed by your health care provider. Make sureyou avoid any veins that are on the surface of the penis. After giving an injection, apply pressureto the injection site for 5 minutes. Talk to your health care provider about how to prevent headaches while taking ED medicines. These medicines may cause a sudden headache due to the increase in blood flow in your body. General instructions Exercise regularly, as directed by your health care provider. Work with your health care provider to lose weight, if needed. Do not use any products that contain nicotine or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 options: 0 Not at all 1 Several days 2 More than half the days 3 Nearly every day PHQ-9 Levels: 0-4 No - mild depression 5-9 Mild depression 10-14 Moderate depression 15-19 Moderately severe depression 20-27 Severe depression ACTIVE PROBLEM LIST Prostate Cancer (Hcc) Stage 3 Chronic Kidney Disease (Hcc) PAST MEDICAL HISTORY Diagnosis Date Claustrophobia HTN (hypertension) Hypercholesterolemia PAST SURGICAL HISTORY Procedure Laterality Date CAROTID ENDARTERECTOMY CC CORONARY STENT PAST SURGICAL HISTORY OF diverticulitis-colon resection PAST SURGICAL HISTORY OF L5 decompression REPAIR OF SHOULDER Bilateral TRANSURETHRAL ELEC-SURG PROSTATECTOM Social History Tobacco Use Smoking status: Every Day Packs/day: 1.00 Years: 60.00 Additional pack years: 0.00 Total pack years: 60.00 Types: Cigarettes Smokeless tobacco: Never Tobacco comments: 2 ppd x 20 yrs, 1 ppd x 40 yrs Substance Use Topics Alcohol use: Not Currently Drug use: Never FAMILY HISTORY Problem Relation Age of Onset Ovarian cancer Sister ALLERGIES No Known Allergies CURRENT MEDICATIONS: Terazosin HCl (HYTRIN) 10 mg capsule aspirin 81 mg cap Take by mouth. pravastatin (PRAVACHOL) 10 mg tablet pravastatin 10 mg tablet atenolol (TENORMIN) 50 mg tablet atenolol 50 mg tablet lisinopril (ZESTRIL, PRINIVIL) 20 mg tablet q 24 HR. HYDROcodone-acetaminophen (NORCO) 5-325 mg per tablet TAKE 1 TABLET BY MOUTH TWICE DAILY NEEDED FOR LUMBAR RADICULOPATHY amLODIPine (NORVASC) 10 mg tablet amlodipine 10 mg tablet baclofen (LIORESAL) 10 mg tablet baclofen 10 mg tablet pregabalin (LYRICA) 50 mg capsule Take 50 mg by mouth twice daily. REVIEW OF SYSTEMS: 14 systems reviewed and otherwise negative unless mentioned above. OBJECTIVE: PHYSICAL EXAM BP 122/58 Pulse (!) 48 Wt 92.6 kg (204 lb 3.2 oz) BMI 29.94 kg/m GENERAL APPEARANCE: Well nourished, well developed, and no apparent distress. NEURO PSYCH: Patient oriented to person, place, and time. Mood pleasant. Benign affect. CARDIOVASCULAR: Palpable pulses. No edema noted. RESPIRATORY: non-labored breathing, no grunting/flaring/retractions SKIN: Head, neck, trunk, and extremities dry, intact and without lesions. MUSCULOSKELETAL VISUAL INSPECTION Posture: normal posture and alignment PALPATION: tenderness to palpation midline lumbar around L3 to L4 region SPINE ROM: LUMBAR ROM: Flexion to lower legs without pain; Extension limited with pain; Rotation WFL without pain. MUSCLE BULK: Normal and symmetrical in the upper & lower extremities. MUSCLE TONE: Normal. MOTOR: 5/5 bilateral LE hip flexion, knee flexion, knee extension, ankle dorsiflexion, plantarflexion, EHL. SENSORY: sensation intact to light touch BLE REFLEXES: 3+ bilateral patella; 2+ left achilles, trace on right; 2+ right medial hamstring, trace on left. LONG TRACT SIGNS: No clonus. GAIT: Non-antalgic. Able to stand on toes and heels. Able to perform tandem gait. PERIPHERAL JOINT ROM: HIP ROM: Full ROM Without Pain STRAIGHT LEG TEST: negative bilateral Hip: Negative KAUSHIK, FADIR SI joint: Negative Barbara Data Review: All images/reports listed below were personally reviewed by me unless otherwise indicated. [facility] records independently reviewed Imaging and outside records independently reviewed 11/26/21 MRI lumbar spine wo [facility]: The bones of the lumbar spine are in anatomic alignment. There is preservation of vertebral body heights. There is mild disc height loss with disc desiccation at L3-4, L4-5, L5-S1. The marrow signal is within normal limits. The conus terminates at T12-L1. No epidural or paraspinous fluid collectionappreciated. T12-L1 and L1-L2: There is a normal disc, central canal and neural foramen. L2-3: Broad-based disc bulge with facet hypertrophy. There is mild spinal canal narrowing with mildbilateral neuroforaminal narrowing. L3-4: Circumferential disc bulge with facet hypertrophy and a left-sided facet effusion. There is moderate narrowing of the spinal canal with moderate bilateral neuroforaminal narrowing. L4-5: Circumferential disc bulge with left greater than right facet hypertrophy. There is moderate spinal canal stenosis. There is mild mass effect on the traversing left L5 nerve roots. There is severe left and moderate right neural foraminal narrowing with mass effect on the exiting left L4 nerveroot. L5-S1: There is a circumferential disc bulge with facet hypertrophy and small bilateral facet effusions. There is mild spinal canal narrowing with severe right and mild left neuroforaminal narrowing.There is mass effect on the exiting right L5 nerve root. 11/26/21 MRI prostate w/wo contrast, [facility]: Bones: No suspicious bony lesion. Normal appearing sacrum/coccyx per my review. ASSESSMENT/PLAN DIAGNOSIS: M48.062 Spinal stenosis, lumbar region with neurogenic claudication (primary encounter diagnosis) M48.061 Foraminal stenosis of lumbar region I73.9 Peripheral artery disease (HCC) C61 Prostate cancer (HCC) ASSESSMENT: Yesenia Broussard is a 77 year old male with PMH of L4-5 surgery, Prostate Cancer s/p TURP and radiation, PAD, CKD 3, presenting with chronic pain located midline and bilateral low back andradiates to bilateral buttocks and bilateral calves, but skips the thighs. Ambulation is severely limited by pain. MRI lumbar spine shows severe right L5-S1 foraminal stenosis, moderate L>R L4-5 foraminal stenosis with severe lateral recess narrowing on the right, L3-4 moderate canal stenosis, severe Left L4-5 facet hypertrophy. Patient's symptoms certainly seem claudicant and could be relatedto stenosis in the lumbar spine, however, he also has h/o PAD that could be contributing. Patient should f/u Cardiology/Vascular to determine if need for interventions on BLE in regard to PAD prior to pursuing any surgery on the lumbar spine. LESI could be considered when patient prefers. Follow upas needed. PLAN: 1) Imaging/Diagnostic Studies: -MRI lumbar images and findings reviewed with patient. -Imaging reviewed as above. 2) Therapy/Rehabilitation: -Activities and exercise as tolerated. 3) Pharmacological Management: -Patient is on Lyrica, but is following with his Pain Management provider and considering switch back to Gabapentin, which seems reasonable given prior success. 4) Spine/MSK Interventions: -Can consider lumbar epidural injection when patient is ready - would likely try Bilateral L4 TFESI, with another option being L3-4 or L5-S1 ILESI. 5) Consultations: -Recommend follow up Cardiology/Vascular regarding PAD and whether treatment is recommended for thelower extremities. 6) Follow -up: -As needed. -Patient instructed to call/seek urgent medical care with worsening of symptoms or change of neurological status. 7) Future treatment considerations: -Can refer patient to Spine Surgery when he is ready to seek consultation. He will need an updated MRI lumbar spine prior to consultation, but he also needs full sedation for the MRI d/t claustrophobia. Agree with MRI with contrast per Oncology order, to r/o metastasis. SIGNATURE: Jose Nichols DO PATIENT NAME: Yesenia Broussard DATE: January 19, 2023 TIME: 12:50 PM documented in this encounterAdena Health System08-18-2023 Miscellaneous Notes* Telephone Encounter - Julianna Yuan RN - 01/16/2023 8:13 AM EDT Left message on [employer] for patient to call office back or to read [employer] message. * Telephone Encounter - Julianna Yuan RN - 01/16/2023 8:13 AM EDT Images from the original note were not included. Jose Nichols DO You 14 hours ago (5:29 PM) It looks like there is an MRI lumbar from last year, so I guess we could base our discussion off that for now, unless he had back surgery since then. Just let him know that we will likely need a follow up after the new MRI. Thanks * Telephone Encounter - Julianna Yuan RN - 01/15/2023 3:01 PM EDT Forwarding to provider for review. New NI patient. * Telephone Encounter - Paul Cat - 01/15/2023 12:12 PM EDT Yesenia Broussard is calling Jose Nichols DO today Patient spouse called in stating they were unable to get Lumbar MRI done prior to Thursday appt. The facility they are going to scheduled them for 03/17/23. Spouse is asking if they should still come in on Thursday. Please advise and call patient back. No chief complaint on file. Patient has been identified by name and birthdate. Duration of symptoms: N/A Person calling: self Call patient at: at home [phone] (home) [phone] (cell) Was an appointment scheduled: No Closing statement: Results or non-symptom based questions: Thank you for calling [facility], your call will be returned within the next business day. Paul Cat documented in this encounterAdena Health System08-08-2023 Miscellaneous Notes* Telephone Encounter - Livier Barrera RN - 01/06/2023 8:13 AM EDT Please sign pended new order for Lumbar Spine MRI as it needs to state that it needs to be done with anesthesia. Thank you Livier Barrera RN documented in this encounterAdena Health System08-07-2023 Miscellaneous Notes* Telephone Encounter - Evelyn Chamberlain RN - 01/05/2023 4:52 PM EDT Spoke to patient's . Explained differences between anxiolysis and full anesthesia. Per patient's , patient needs full anesthesia-will not tolerate procedure with anxiolysis alone. Communicated to office that new order needs to be placed for MRI with anesthesia, and will need to be scheduled at [facility]. documented in this encounterAdena Health System07-05-2023 Hospital Discharge instructions Patient Education 12/03/2022 15:36:37 Urinary Frequency, Adult Urinary Frequency, Adult Urinary frequency means urinating more often than usual. You may urinate every 1 2 hours even though you drink a normal amount of fluid and do not have a bladder infection or condition. Although you urinate more often than normal, the total amount of urine produced in a day is normal. With urinary frequency, you may have an urgent need to urinate often. The stress and anxiety of needing to find a bathroom quickly can make this urge worse. This condition may go away on its own, or you may need treatment at home. Home treatment may include bladder training, exercises, taking medicines, or making changes to your diet. Follow these instructions at home: Bladder health Your health care provider will tell you what to do to improve bladder health. You may be told to: Keep a bladder diary. Keep track of: ?What you eat and drink. ?How often you urinate. ?How much you urinate. Follow a bladder training program. This may include: ?Learning to delay going to the bathroom. ?Double urinating, also called voiding. This helps if you are not completely emptying your bladder. ?Scheduled voiding. Do Kegel exercises. Kegel exercises strengthen the muscles that help control urination, which may help the condition. Eating and drinking Follow instructions from your health care provider about eating or drinking restrictions. You may be told to: Avoid caffeine. Drink fewer fluids, especially alcohol. Avoid drinking in the evening. Avoid foods or drinks that may irritate the bladder. These include coffee, tea, soda, artificial sweeteners, citrus, tomato-based foods, and chocolate. Eat foods that help prevent or treat constipation. Constipation can make urinary frequency worse. You may need to take these actions to prevent or treat constipation: ?Drink enough fluid to keep your urine pale yellow. ?Take sbvs-ign-voikihw or prescription medicines. ?Eat foods that are high in fiber, such as beans, whole grains, and fresh fruits and vegetables. ?Limit foods that are high in fat and processed sugars, such as fried or sweet foods. General instructions Take tsrf-fxh-fogjbub and prescription medicines only as told by your health care provider. Keep all follow-up visits. This is important. Contact a health care provider if: You start urinating more often. You feel pain or irritation when you urinate. You notice blood in your urine. Your urine looks cloudy. You develop a fever. You begin vomiting. Get help right away if: You are unable to urinate. Summary Urinary frequency means urinating more often than usual. With urinary frequency, you may urinate every 1 2 hours even though you drink a normal amount of fluid and do not have a bladder infection or other bladder condition. Your health care provider may recommend that you keep a bladder diary, follow a bladder training program, or make dietary changes. If told by your health care provider, do Kegel exercises to strengthen the muscles that help control urination. Take dkai-nmn-sradzlb and prescription medicines only as told by your health care provider. Contact a health care provider if your symptoms do not improve or get worse. This information is not intended to replace advice given to you by your health care provider. Make sure you discuss any questions you have with your health care provider. Document Revised: 12/21/2020 Document Reviewed: 12/21/2020 [employer] Patient Education 2022 [employer]. Follow Up Care 10/28/2022 10:11:31 With:BRITNI ENCINAS, CLAIRE Boswell, URL Address: [address] [place] [address] When:Within 5 Week(s) [facility] 06-23-2023 Miscellaneous Notes* Telephone Encounter - Kadi Cotton - 11/21/2022 11:36 AM EDT Patient has been scheduled & notified of appointment. Kadi Cotton * Telephone Encounter - Kadi Cotton - 11/19/2022 9:35 AM EDT Contacted patient to schedule MRI & was informed by that patient is extremely claustrophobic & needs sedation in order for MRI to be completed. This can only be completed at [facility] Main & orders must be revised to reflect such. Thanks, Kadi Cotton * Telephone Encounter - Kadi Cotton - 11/18/2022 2:17 PM EDT Per [facility] Neurosurgery, a more recent MRI is required before scheduling the patient to be seen. They are requesting new MRI orders to be placed before completing consult. Kadi Cotton documented in this encounterAdena Health System06-21-2023 NoteHNO ID: [id number] Author: Bhumika Betts APRN.CNP Service: ? Author Type: Nurse Practitioner Type: Progress Notes Filed: 11/19/2022 12:26 PM Note Text: Yesenia Broussard was seen and examined by Dr. Nazario. Overall, he is doing well. He complains of frequent urination mainly during the night. He plans to follow-up with his urologist regarding this concern. He denies any problems with his bowels. No diarrhea or constipation. He denies any unusual pain. Patient was given treatment summary and survivorship care plan for prostate cancer. Bhumika Betts APRN.CNPUniversity Hospitals Portage [facility]06-21-2023 History of Present illness Narrative* Bhumika Betts APRN.CNP - 11/19/2022 12:22 PM EDT Yesenia Broussard was seen and examined by Dr. Nazario. Overall, he is doing well. He complains of frequent urination mainly during the night. He plans to follow- up with his urologist regarding this concern. He denies any problems with his bowels. No diarrhea or constipation. He denies any unusual pain. Patient was given treatment summary and survivorship care plan for prostate cancer. Bhumika Betts APRN.CNP documented in this encounterAdena Health System06-21-2023 Evaluation note* Diagnosis Prostate cancer (HCC) Malignant neoplasm of prostate Stage 3 chronic kidney disease, unspecified whether stage 3a or 3b CKD (HCC) documented in this encounter [facility]23 NoteHNO ID: [id number] Author: Hyun Nazario MD Service: ? Author Type: Physician Type: Progress Notes Filed: 11/19/2022 9:23 AM Note Text: Radiation Oncology - Follow Up Note PATIENT NAME: Yesenia Broussard PATIENT DIAGNOSIS: Prostate adenocarcinoma, initial PSA 9.95, biopsy [place] score 3 + 4 = 7 (grade group 2), clinical stage T1b, N0, M0, stage IIB [T1-T2, N0, M0, PSA <20, GG 2] (AJCC 8th ed.), s/p TURP. Prostate cancer (C61), 2019 NCCN Risk Group: Unfavorable Intermediate Risk Group RADIATION SUMMARY: DATES OF TREATMENT: 03/18/2022- 04/23/2022 AREA TREATED: Pelvis and Prostate DELIVERED DOSE: Area: pelvis/ prostate 7000 cGy in 28 fractions, 2 Arcs, IMRT, 10 MV with daily CBCT TOTAL: 7000 cGy in 28 fractions ELAPSED TIME: 36 days. INTERVAL HISTORY: Overall doing fairly well. Is having some continued issues with nocturia. Denies any obstructive issues. Less frequency issues during the day. Also having continued lower back pain with radicular component to both legs. PSA HISTORY: PSA (ng/mL) Date Value 11/17/2022 0.50 PSA. (no units) Date Value 05/09/2022 2.810 ALLERGIES No Known Allergies Terazosin HCl (HYTRIN) 10 mg capsule aspirin 81 mg cap Take by mouth. pravastatin (PRAVACHOL) 10 mg tablet pravastatin 10 mg tablet atenolol (TENORMIN) 50 mg tablet atenolol 50 mg tablet lisinopril (ZESTRIL, PRINIVIL) 20 mg tablet q 24 HR. HYDROcodone-acetaminophen (NORCO) 5-325 mg per tablet TAKE 1 TABLET BY MOUTH TWICE DAILY NEEDED FOR LUMBAR RADICULOPATHY amLODIPine (NORVASC) 10 mg tablet amlodipine 10 mg tablet baclofen (LIORESAL) 10 mg tablet baclofen 10 mg tablet pregabalin (LYRICA) 50 mg capsule Take 50 mg by mouth twice daily. REVIEW OF SYSTEMS: D/N = 5-6/2-4 Hematuria: none Dysuria: none Incontinence: Yes Urgency: mild Catheter use: none Medications to aid urination: y - Total AUA Score: 27 Bowel movement frequency: 1/day Bowel movement quality: normal Blood per rectum: none PHYSICAL EXAM: BP 112/54 Pulse (!) 56 Temp 37.1 ?C (98.7 ?F) Resp 18 Wt 92.5 kg (204 lb) SpO2 96% BMI 29.91 kg/m? KPS: 90 General Appearance: Alert and oriented. No acute distress. Rectal exam is deferred. ASSESSMENT/PLAN: Prostate adenocarcinoma, initial PSA 9.95, biopsy [place] score 3 + 4 = 7 (grade group 2), clinical stage T1b, N0, M0, stage IIB [T1-T2, N0, M0, PSA <20, GG 2] (AJCC 8th ed.), s/p definitive radiation completed April 2022. 1. Prostate cancer doing well with excellent PSA response. He is having continued urgency related symptoms. He has continued follow-up with urology. Otherwise plan to see patient back in 6 months repeat PSA. 2. Spinal stenosis, lumbar spine. Patient told by family members physician that he needs to be evaluated by neurosurgery. Consult and repeat MRI order placed. Signed by: Hyun Nazario MD cc: Shaikh Dotty [address] [place] [address] XpidxlnozUniversity [facility]als [facility]06-20-2023 Nurse Note* Nadja Guardado - 11/18/2022 2:34 PM EDT Clinical questionnaires incomplete due to Patient was roomed by provider documented in this encounterAdena Health System06-20-2023 Nurse Note* Livier Barrera RN - 11/18/2022 1:32 PM EDT AUA 21 Livier Barrera RN documented in this encounterAdena Health System06-20-2023 History of Present illness Narrative* Hyun Nazario MD - 11/18/2022 1:15 PM EDT Radiation Oncology - Follow Up Note PATIENT NAME: Yesenia Broussard PATIENT DIAGNOSIS: Prostate adenocarcinoma, initial PSA 9.95, biopsy Nicola score 3 + 4 = 7 (grade group 2), clinical stage T1b, N0, M0, stage IIB [T1-T2, N0, M0, PSA <20, GG 2] (AJCC 8th ed.), s/p TURP. Prostate cancer (C61), 2019 NCCN Risk Group: Unfavorable Intermediate Risk Group RADIATION SUMMARY: DATES OF TREATMENT: 03/18/2022- 04/23/2022 AREA TREATED: Pelvis and Prostate DELIVERED DOSE: Area: pelvis/ prostate 7000 cGy in 28 fractions, 2 Arcs, IMRT, 10 MV with daily CBCT TOTAL: 7000 cGy in 28 fractions ELAPSED TIME: 36 days. INTERVAL HISTORY: Overall doing fairly well. Is having some continued issues with nocturia. Denies any obstructive issues. Less frequency issues during the day. Also having continued lower back pain with radicular component to both legs. PSA HISTORY: PSA (ng/mL) Date Value 11/17/2022 0.50 PSA. (no units) Date Value 05/09/2022 2.810 ALLERGIES No Known Allergies Terazosin HCl (HYTRIN) 10 mg capsule aspirin 81 mg cap Take by mouth. pravastatin (PRAVACHOL) 10 mg tablet pravastatin 10 mg tablet atenolol (TENORMIN) 50 mg tablet atenolol 50 mg tablet lisinopril (ZESTRIL, PRINIVIL) 20 mg tablet q 24 HR. HYDROcodone-acetaminophen (NORCO) 5-325 mg per tablet TAKE 1 TABLET BY MOUTH TWICE DAILY NEEDED FOR LUMBAR RADICULOPATHY amLODIPine (NORVASC) 10 mg tablet amlodipine 10 mg tablet baclofen (LIORESAL) 10 mg tablet baclofen 10 mg tablet pregabalin (LYRICA) 50 mg capsule Take 50 mg by mouth twice daily. REVIEW OF SYSTEMS: D/N = 5-6/2-4 Hematuria: none Dysuria: none Incontinence: Yes Urgency: mild Catheter use: none Medications to aid urination: y - Total AUA Score: 27 Bowel movement frequency: 1/day Bowel movement quality: normal Blood per rectum: none PHYSICAL EXAM: BP 112/54 Pulse (!) 56 Temp 37.1 C (98.7 F) Resp 18 Wt 92.5 kg (204 lb) SpO2 96% BMI 29.91 kg/m KPS: 90 General Appearance: Alert and oriented. No acute distress. Rectal exam is deferred. ASSESSMENT/PLAN: Prostate adenocarcinoma, initial PSA 9.95, biopsy Nicola score 3 + 4 = 7 (grade group 2), clinical stage T1b, N0, M0, stage IIB [T1-T2, N0, M0, PSA <20, GG 2] (AJCC 8th ed.), s/pdefinitive radiation completed April 2022. 1. Prostate cancer doing well with excellent PSA response. He is having continued urgency related symptoms. He has continued follow-up with urology. Otherwise plan to see patient back in 6 months repeat PSA. 2. Spinal stenosis, lumbar spine. Patient told by family members physician that he needs to be evaluated by neurosurgery. Consult and repeat MRI order placed. Signed by: Hyun Nazario MD cc: Shaikh Dotty [address] [address] documented in this encounterAdena Health System01-06-2023 Miscellaneous Notes* Telephone Encounter - STEPHANIE Lange - 06/06/2022 2:32 PM EST SOCIAL WORK FOLLOW UP NOTE: [facility] Date of service:06/06/22 Yesenia Broussard is being seen for a follow up social work visit. Today's visit includes: spouse TOPICS ADDRESSED: community resources PLAN: Continue follow up as needed Assigned SW listed in Care Team tab: Yes Patient's Nena called in and left a VM. SW returned the call and left her a VM. Awaiting a call back. JENNIE Lange documented in this encounterAdena Health System01-05-2023 Nurse Note* Kelly Hector - 06/05/2022 12:40 PM EST Back office UA test performed. Results entered in [employer] and doctor notified. Kelly Hector MA documented in this encounterAdena Health System12-15-2022 Miscellaneous Notes* Telephone Encounter - Diane Parada LPN - 05/15/2022 1:51 PM EST Nena, pt's , notified to have Dexter complete the Cipro prescription and have urine rechecked in 2-3 weeks. Call transferred to [facility] to schedule lab appt. Dr. Nazario, please sign pended lab orders. Diane Parada LPN documented in this encounterAdena Health System12-15-2022 NoteCONSULTATION CONSULTATION DATE: 05/15/2022 HISTORY OF PRESENT ILLNESS: This is a pleasant, 76-year-old gentleman who returns to the clinic for a three month follow up for chronic lower back pain. He rates his pain as 2/10 now at rest. Chronically, his pain is usually between 6 and 8. He has had lumbar radiofrequency ablation in January of this year, which he feels has been non-helpful. He has also received a lumbar epidural steroid injection approximately a year ago with minimal relief. The patient feels that the pain is a lot deeper. He states when he feels the need to have a bowel movement that his pain is greater. After he goes to the restroom, the pain dissipates. The patient states he has a son who lives in [place] with the same symptoms and gained relief after seeing a specialist and having surgery. Medications include Lyrica 75 mg t.i.d., [place] 5/325 t.i.d. and baclofen 10 mg q.h.s. He does have a history of prostate CA and just completed five weeks of radiation. His most recent PSA showed improvement. He does have a six month follow up with Oncology. Patient's REVIEW OF SYSTEMS / PAST MEDICAL HISTORY / ALLERGIES and IMAGES have been reviewed and noted in the chart. PHYSICAL EXAM: VITAL SIGNS: Blood pressure is 111/62. Heart rate is 65. Temperature is 97.8. He is 5'10 , weighs 96 kg. GENERAL APPEARANCE: Pleasant, appropriate, no acute distress. FOCUSED EXAM - BACK: Range of motion is functional in lateral rotation and flexion/extension. Bilateral paravertebral muscles are taut. No reproduction of spinal axial pain along the lower lumbar facet of L2, L3 and L4, L5. Jose's point is non-tender with negative FABERs and compression tests. MUSCULOSKELETAL: Motor is intact, 4/5 bilaterally. Patient walks unassisted with no vasomotor weakness. NEUROLOGICALLY: Diffuse polyneuropathy bilateral hands and feet diffusely. Patellar and Achilles reflexes are +1. DIAGNOSIS: Lumbar spondylosis, lumbar degenerative disc disease, lumbar spinal canal stenosis. PLAN: The patient and are going to spend three months in [place] with his son in early July and he wishes to see the specialist out there. I told him we would continue to medically manage him, which he does agree to. Patient will call the office for an appointment upon return from [place].[facility] [phone] History of Present illness Narrative* STEPHANIE Lange - 04/30/2022 3:01 PM EST SOCIAL WORK FOLLOW UP NOTE: [facility] Date of service:04/30/22 TOPICS ADDRESSED: community resources PLAN: Continue follow up as needed Assigned SW listed in Care Team tab: Yes SW completed and faxed a mileage reimbursement log to [facility] for the month of April 2022. JENNIE Lange documented in this encounterAdena Health System11-23-2022 History of Present illness Narrative* Hyun Nazario MD - 04/23/2022 12:00 AM EST [facility] Radiation Oncology Department RADIATION ONCOLOGY - COMPLETION NOTE PATIENT: YESENIA BROUSSARD: 1945 DATES OF TREATMENT: 03/18/2022- 04/23/2022 DIAGNOSIS: Prostate adenocarcinoma, initial PSA 9.95, biopsy [place] score 3 + 4 = 7 (grade group 2), clinical stage T1b, N0, M0, stage IIB [T1-T2, N0, M0, PSA <20, GG 2] (AJCC 8th ed.), s/p TURP. Prostate cancer (C61), 2019 NCCN Risk Group: Unfavorable Intermediate Risk Group AREA TREATED: Pelvis and Prostate DELIVERED DOSE: Area: pelvis/ prostate 7000 cGy in 28 fractions, 2 Arcs, IMRT, 10 MV with daily CBCT TOTAL: 7000cGy in 28 fractions ELAPSED TIME: 36 days. CLINICAL SUMMARY: The patient tolerated radiation with mild radiation related diarrhea, cystitis and fatigue. No other issues. The patient was able to complete treatment as intended without break interruption or modification of prescription plan. The disease response will be assessed in clinic. Thepatient will be seen again in 2 weeks for post radiation follow-up. Staff Physician Jose Nazario M.D. / LILIAT :35 PM documented in this encounterAdena Health System11-21-2022 History of Present illness Narrative* Hyun Nazario MD - 04/21/2022 3:23 PM EST g Radiation Oncology - On Treatment Review (OTR) Note PATIENT NAME: Yesenia Broussard PATIENT DIAGNOSIS: Prostate adenocarcinoma, initial PSA 9.95, biopsy [place] score 3 + 4 = 7 (grade group 2), clinical stage T1b, N0, M0, stage IIB [T1-T2, N0, M0, PSA <20, GG 2] (AJCC 8th ed.), s/p TURP. Prostate cancer (C61), 2019 NCCN Risk Group: Unfavorable Intermediate Risk Group COURSE: definitive Current dose: 6500 cGy in 26 fx Planned dose: 7000 cGy in 28 fx SUBJECTIVE: Doing well. PHYSICAL EXAM: 04/21/22 1530 BP: 154/70 Pulse: (!) 58 Resp: 18 Temp: (!) 35.9 C (96.7 F) SpO2: 98% Weight: 95.7 kg (211 lb) KPS: 100 General Appearance: Alert and oriented. No acute distress. IMAGING/LAB RESULTS: Hemoglobin (g/dL) Date Value 03/27/2022 12.8 Hematocrit (%) Date Value 03/27/2022 39.3 WBC (k/uL) Date Value 03/27/2022 7.71 Platelet Count (k/uL) Date Value 03/27/2022 183 TOXICITY ASSESSMENT (CTC v4.0): Fatigue:grade 0 - No symptoms Radiation Dermatitis: grade 0 - No symptoms Diarrhea:grade 0 - No symptoms Proctitis: grade 0 - No symptoms Urinary frequency: grade 1 Dysuria: grade 1 Urinary incontinence: grade 0 (No symptoms) Urinary retention: grade 0 - No symptoms Treatment chart checked: Yes Patient treatment site reviewed and verified:Yes Port films reviewed and current:Yes Medications started: None ASSESSMENT/PLAN: Chart and imaging reviewed. Continue radiation as outlined. He will finish this week. Follow up care discussed and arranged after completion of treatment. Hyun Nazario MD documented in this encounterAdena Health System11-14-2022 History of Present illness Narrative* Hyun Nazario MD - 04/14/2022 3:05 PM EST Radiation Oncology - On Treatment Review (OTR) Note PATIENT NAME: Yesenia Broussard PATIENT DIAGNOSIS: Prostate adenocarcinoma, initial PSA 9.95, biopsy Nicola score 3 + 4 = 7 (grade group 2), clinical stage T1b, N0, M0, stage IIB [T1-T2, N0, M0, PSA <20, GG 2] (AJCC 8th ed.), s/p TURP. Prostate cancer (C61), 2019 NCCN Risk Group: Unfavorable Intermediate Risk Group COURSE: definitive Current dose: 5000 cGy in 20 x Planned dose: 7000 cGy in 28 fx SUBJECTIVE: Doing well. Symptoms stable. PHYSICAL EXAM: 04/14/22 1504 BP: 128/68 Pulse: 64 Resp: 16 Temp: 36.4 C (97.6 F) SpO2: 97% Weight: 93.4 kg (206 lb) KPS: 100 General Appearance: Alert and oriented. No acute distress. IMAGING/LAB RESULTS: Hemoglobin (g/dL) Date Value 03/27/2022 12.8 Hematocrit (%) Date Value 03/27/2022 39.3 WBC (k/uL) Date Value 03/27/2022 7.71 Platelet Count (k/uL) Date Value 03/27/2022 183 TOXICITY ASSESSMENT (CTC v4.0): Fatigue:grade 0 - No symptoms Radiation Dermatitis: grade 0 - No symptoms Diarrhea:grade 0 - No symptoms Proctitis: grade 0 - No symptoms Urinary frequency: grade 1 Dysuria: grade 1 Urinary incontinence: grade 0 (No symptoms) Urinary retention: grade 0 - No symptoms Treatment chart checked: Yes Patient treatment site reviewed and verified:Yes Port films reviewed and current:Yes Medications started: None ASSESSMENT/PLAN: Chart and imaging reviewed. Continue radiation as outlined. Hyun Nazario MD documented in this encounterAdena Health System11-07-2022 History of Present illness Narrative* Hyun Nazario MD - 04/07/2022 11:03 AM EST Radiation Oncology - On Treatment Review (OTR) Note PATIENT NAME: Yesenia Broussard PATIENT DIAGNOSIS: Prostate adenocarcinoma, initial PSA 9.95, biopsy [place] score 3 + 4 = 7 (grade group 2), clinical stage T1b, N0, M0, stage IIB [T1-T2, N0, M0, PSA <20, GG 2] (AJCC 8th ed.), s/p TURP. Prostate cancer (C61), 2019 NCCN Risk Group: Unfavorable Intermediate Risk Group COURSE: definitive Current dose: 3750 cGy in 15 fx Planned dose: 7000 cGy in 28 fx SUBJECTIVE: Having some mild dysuria mostly in the morning both at the start and end of his voiding. No hematuria. No fever. PHYSICAL EXAM: 04/07/22 1101 BP: 138/63 Pulse: (!) 55 Resp: 18 Temp: 36.3 C (97.4 F) SpO2: 98% Weight: 94.3 kg (208 lb) KPS: 100 General Appearance: Alert and oriented. No acute distress. IMAGING/LAB RESULTS: Hemoglobin (g/dL) Date Value 03/27/2022 12.8 Hematocrit (%) Date Value 03/27/2022 39.3 WBC (k/uL) Date Value 03/27/2022 7.71 Platelet Count (k/uL) Date Value 03/27/2022 183 TOXICITY ASSESSMENT (CTC v4.0): Fatigue:grade 0 - No symptoms Radiation Dermatitis: grade 0 - No symptoms Diarrhea:grade 0 - No symptoms Proctitis: grade 0 - No symptoms Urinary frequency: grade 0 - No symptoms Dysuria: grade 1 Urinary incontinence: grade 0 (No symptoms) Urinary retention: grade 0 - No symptoms Treatment chart checked: Yes Patient treatment site reviewed and verified:Yes Port films reviewed and current:Yes Medications started: None ASSESSMENT/PLAN: Patient doing well. Chart and imaging reviewed. Continue radiation as outlined. Hyun Nazario MD documented in this encounterAdena Health System10-31-2022 History of Present illness Narrative* Hyun Nazario MD - 03/31/2022 3:29 PM EDT Radiation Oncology - On Treatment Review (OTR) Note PATIENT NAME: Yesenia Broussard PATIENT DIAGNOSIS: Prostate adenocarcinoma, initial PSA 9.95, biopsy Nicola score 3 + 4 = 7 (grade group 2), clinical stage T1b, N0, M0, stage IIB [T1-T2, N0, M0, PSA <20, GG 2] (AJCC 8th ed.), s/p TURP. Prostate cancer (C61), 2019 NCCN Risk Group: Unfavorable Intermediate Risk Group COURSE: definitive Current dose: 2500 cGy in 10 fx Planned dose: 7000 cGy in 28 fx SUBJECTIVE: Doing well no new issues. PHYSICAL EXAM: 03/31/22 1533 BP: 145/72 Pulse: (!) 54 Resp: 18 Temp: (!) 35.9 C (96.7 F) SpO2: 97% Weight: 94.8 kg (209 lb) KPS: 100 General Appearance: Alert and oriented. No acute distress. IMAGING/LAB RESULTS: Hemoglobin (g/dL) Date Value 03/27/2022 12.8 Hematocrit (%) Date Value 03/27/2022 39.3 WBC (k/uL) Date Value 03/27/2022 7.71 Platelet Count (k/uL) Date Value 03/27/2022 183 TOXICITY ASSESSMENT (CTC v4.0): Fatigue:grade 0 - No symptoms Radiation Dermatitis: grade 0 - No symptoms Diarrhea:grade 0 - No symptoms Proctitis: grade 0 - No symptoms Urinary frequency: grade 0 - No symptoms Dysuria: grade 1 Urinary incontinence: grade 0 (No symptoms) Urinary retention: grade 0 - No symptoms Treatment chart checked: Yes Patient treatment site reviewed and verified:Yes Port films reviewed and current:Yes Medications started: None ASSESSMENT/PLAN: Patient doing well. Chart and imaging reviewed. Continue radiation as outlined. Hyun Nazario MD documented in this encounterAdena Health System10-31-2022 History of Present illness Narrative* STEPHANIE Lange - 03/31/2022 9:35 AM EDT SOCIAL WORK FOLLOW UP NOTE: [facility]CER CENTER Date of service:03/21/22 TOPICS ADDRESSED: community resources PLAN: Continue follow up as needed Assigned SW listed in Care Team tab: Yes SW completed and faxed a mileage reimbursement form on the Patient's behalf to [facility] for the month of March 2022. ASHER Lange-Laney documented in this encounterAdena Health System10-27-2022 Nurse Note* Livier Barrera RN - 03/27/2022 3:10 PM EDT Yesenia Broussard presents in office today for: Lab Draw only . Ordering Provider: Jose Nazario M.D. Test (s) ordered: CBC Method for obtaining blood: Phlebotomy was performed, accessing right antecubital vein. Needle removed intact. Dressing secured. Patient denies discomfort, dizziness, light-headedness or weakness and left the department without assist. Livier Barrera RN documented in this encounterAdena Health System10-24-2022 History of Present illness Narrative* G Jose Nazario MD - 03/24/2022 4:00 PM EDT Radiation Oncology - On Treatment Review (OTR) Note PATIENT NAME: Yesenia Broussard PATIENT DIAGNOSIS: Prostate adenocarcinoma, initial PSA 9.95, biopsy Nicola score 3 + 4 = 7 (grade group 2), clinical stage T1b, N0, M0, stage IIB [T1-T2, N0, M0, PSA <20, GG 2] (AJCC 8th ed.), s/p TURP. Prostate cancer (C61), 2019 NCCN Risk Group: Unfavorable Intermediate Risk Group COURSE: definitive Current dose: 1250 cGy in 5 fx Planned dose: 7000 cGy in 28 fx SUBJECTIVE: Mild dysuria no other issues. PHYSICAL EXAM: 03/24/22 1603 BP: 141/65 Pulse: (!) 50 Resp: 16 Temp: 36.7 C (98 F) SpO2: 100% Weight: 93.4 kg (206 lb) KPS: 100 General Appearance: Alert and oriented. No acute distress. IMAGING/LAB RESULTS: None TOXICITY ASSESSMENT (CTC v4.0): Fatigue:grade 0 - No symptoms Radiation Dermatitis: grade 0 - No symptoms Diarrhea:grade 0 - No symptoms Proctitis: grade 0 - No symptoms Urinary frequency: grade 0 - No symptoms Dysuria: grade 1 Urinary incontinence: grade 0 (No symptoms) Urinary retention: grade 0 - No symptoms Treatment chart checked: Yes Patient treatment site reviewed and verified:Yes Port films reviewed and current:Yes Medications started: None ASSESSMENT/PLAN: Patient doing well. Chart and imaging reviewed. Continue radiation as outlined. Hyun Nazario MD documented in this encounterAdena Health System10-18-2022 History of Present illness Narrative* Hyun Nazario MD - 03/18/2022 3:58 PM EDT Radiation Oncology - On Treatment Review (OTR) Note PATIENT NAME: Yesenia Broussard PATIENT DIAGNOSIS: Prostate adenocarcinoma, initial PSA 9.95, biopsy [place] score 3 + 4 = 7 (grade group 2), clinical stage T1b, N0, M0, stage IIB [T1-T2, N0, M0, PSA <20, GG 2] (AJCC 8th ed.), s/p TURP. Prostate cancer (C61), 2019 NCCN Risk Group: Unfavorable Intermediate Risk Group COURSE: definitive Current dose: 250 cGy in 1 fx Planned dose: 7000 cGy in 28 fx SUBJECTIVE: RADIATION SUMMARY: PHYSICAL EXAM: KPS: 100 General Appearance: Alert and oriented. No acute distress. IMAGING/LAB RESULTS: None TOXICITY ASSESSMENT (CTC v4.0): Fatigue:grade 0 - No symptoms Radiation Dermatitis: grade 0 - No symptoms Diarrhea:grade 0 - No symptoms Proctitis: grade 0 - No symptoms Urinary frequency: grade 0 - No symptoms Dysuria: grade 0 - No symptoms Urinary incontinence: grade 0 (No symptoms) Urinary retention: grade 0 - No symptoms Treatment chart checked: Yes Patient treatment site reviewed and verified:Yes Port films reviewed and current:Yes Medications started: None ASSESSMENT/PLAN: Patient starting radiation today. Plan of care and expectations again reviewed. Plan, MU calculations and qa report reviewed. Initial imaging including cone beam ct and verification reviewed and approved. First treatment given. Continue radiation as prescribed. Hyun Nazario MD documented in this encounterAdena Health System10-18-2022 Miscellaneous Notes* Telephone Encounter - Diane Parada LPN - 03/18/2022 8:31 AM EDT CBC order the second week during radiation is pending your approval. Diane Parada LPN documented in this encounterAdena Health System10-13-2022 NoteCONSULTATION PROCEDURE DATE: 03/13/2022 PREOPERATIVE DIAGNOSIS: Bilateral lumbar spasms. POSTOPERATIVE DIAGNOSIS: Bilateral lumbar spasms. PROCEDURE: Bilateral lumbar trigger point injections. Subsequent to obtaining informed consent, the patient was placed in the upright standing, forward flexion position. Alcohol prep was used to sterilize the site in two locations. A 25 gauge needle with 0.125% Marcaine and 50 mg of Kenalog for a total dose of 2.5 cc in each location was injected. Needle was placed inside the trigger zone. Negative heme. Medication injected in a fan-like pattern. Patient tolerated the procedure well with no overt complications.[facility] [id number] NoteCONSULTATION CONSULTATION DATE: 03/13/2022 HISTORY OF PRESENT ILLNESS: This is a very pleasant, 76-year-old gentleman returning to the clinic status post bilateral RFA of L2, L3 and L4, L5 completed on 02/11/2022. The patient states he got minimal relief and is experiencing 6/10 pain today. He states prolonged standing, bending and physical activity aggravate his pain. He feels a diffuse tightness across his belt line. He is complaining of some allodynia to his mid buttock area. He does state that the pain to his lower back does improve after he has a bowel movement. His current medications include Lyrica 75 mg t.i.d., [place] 5/325 t.i. d., baclofen 10 mg q.h.s. The patient does have prostate CA and will be starting a radiation/chemo regimen very soon. He denies any vasomotor weakness at this time. Patient's REVIEW OF SYSTEMS / PAST MEDICAL HISTORY / ALLERGIES and IMAGES have been reviewed and they are noted on the chart. PHYSICAL EXAM: VITAL SIGNS: Blood pressure 133/77. Heart rate is 43. Temperature is 97.7. He is 5'10 and weighs 95 kg. GENERAL IMPRESSION: Pleasant, appropriate, no acute distress, but uncomfortable sitting in the chair. FOCUSED EXAM - BACK: Range of motion is guarded in lateral rotation and flexion/extension. Paravertebral muscles are spasmodic bilaterally with trigger points identified. Positive jump response upon compression of those trigger points. Jose's point mildly tender bilaterally with pain radiating to the left groin. FABERs mildly positive. MUSCULOSKELETAL: Motor is intact, 4/5 bilaterally. Does not use assistive device to ambulate. Muscle tone is good with minimal muscle atrophy noted. NEUROLOGICAL: Allodynia noted to mid buttock area. Radicular sensory is intact. DIAGNOSIS: Bilateral lumbar spasms, lumbar spondylosis, lumbar degenerative disc disease and prostate cancer. PLAN: The patient will receive bilateral trigger point injections in the office today, which he does consent to. I did recommend seated stretches which were demonstrated for him, in addition to a menthol heat rub and heat application. We will follow him up in six weeks' time to re-evaluate his symptomatology. He does describe a sacral type of pain that would most likely benefit from a pudendal nerve block or a caudal epidural steroid injection; however, we will hold off on these procedures due to his pending cancer treatments. Patient agrees with the plan of care and will return in six weeks' time.[facility] [id number] History of Present illness Narrative* STEPHANIE Lange - 03/12/2022 4:25 PM EDT SOCIAL WORK FOLLOW UP NOTE: CANCER CENTER Date of service:03/12 22 Yesenia Broussard is being seen for a follow up social work visit. Today's visit includes: spouse and patient TOPICS ADDRESSED: community resources and mileage reimbursement Assigned SW listed in Care Team tab: Yes SW met with Patient and to review services offered through [facility]. Patient completed an intake application. SW will help with the monthly mileage reimbursement logs. Patient and expressed concerns about future bills with [facility]. SW encouraged them to call this SW with questions or concerns and this SW will help direct their concerns to the appropriate departments. SW will remain available and will follow up as appropriate. JENNIE Lange documented in this encounterAdena Health System10-12-2022 History of Present illness Narrative* Hyun Nazario MD - 03/12/2022 12:00 AM EDT YESENIA BROUSSARD [id number] 03/12/2022 [facility] Department of Radiation Oncology Treatment Planning Note For reasons stated in the consult note, Yesenia Broussard is a candidate for radiation therapy. Based on review and interpretation of the relevant diagnostic studies together with the exam findings, Yesenia Broussard was simulated on 03/12/2022 at which time the target volume and/or requisite dunlap were de lineated, as indicated in the simulation note, to be treated according to the prescription. The treatment target and organs at risk were contoured on the simulation scan using the fused MRI. After reviewing multiple treatment plans with dosimetry, the best plan was approved to deliver the prescribed course of radiation to the target area using inverse planning to allow for the best isodose distribution, treating to the 97.5% isodose line with 10MV and 2 dunlap. Custom MLC asym jaws forIMRT were the treatment devices used to shape/modify the beams. Limiting dose to normal tissue was confirmed upon review of the calculated dose volume histogram. IMRT planning was used because it best met the dose/volume constraints for the organs at risk for this patient, better than what could be achieved using conventional or 3D planning. The specific doserequirements for the PTV, organs at risk and dose-volume histograms are contained in this treatmentplan and/or elsewhere in the medical record. A completed summary of this plan dated 03/17/22 incorporated herein by reference includes dose, beam arrangements, energy, blocking, isodose distribution, and/or ports and DVH. Electronically Signed Jose Nazario M.D. 21:57 PM documented in this encounterAdena Health System10-04-2022 Miscellaneous Notes* Telephone Encounter - STEPHANIE Lange - 03/04/2022 3:28 PM EDT SOCIAL WORK FOLLOW UP NOTE: CANCER CENTER Date of service:03/04/22 Yesenia Broussard is being seen for a follow up social work visit. Today's visit includes: spouse TOPICS ADDRESSED: finances PLAN: Continue follow up as needed and Referral to community resource Assigned SW listed in Care Team tab: Yes SW received a referral from MEHNAZ Arteaga to contact this Patient's regarding financial concerns with upcoming treatment. SW called and spoke with Nena (Patient's ). Nena mentioned that she and the Patient live on a fixed income. Primary concern is the cost of radiation treatments. SW shared that there are options for financial toxicity concerns. SW encouraged to maintain contact with this SW if/when F medical bills arrive. SW also talked about community services that offer financial support ([facility]) for mileage reimbursement. is agreeable to meet with this SW after the Patient's next appointment on 03/12/22. was appreciative of the call. SW will remain available and will follow up as appropriate. JENNIE Lange documented in this encounterAdena Health System10-03-2022 History of Present illness Narrative* Hyun Nazario MD - 03/03/2022 10:42 AM EDT Unable to complete simulation due to anxiety related to claustrophobia. Prescription for Valium given. We will reschedule. documented in this encounterAdena Health System09-27-2022 Miscellaneous Notes* Telephone Encounter - Criselda Mcpherson Sec - 02/25/2022 2:09 PM EDT Patient is scheduled for Thursday patient could not come any other day due to being out of town at the end of the week 8:00AM thursday * Telephone Encounter - Criselda Mcpherson Sec - 02/25/2022 9:23 AM EDT Called patient and left message to r's appointment * Telephone Encounter - Diane Parada LPN - 02/25/2022 9:17 AM EDT Nena, pt's , left a message stating Dexter isn't going to make it in for his SIM today. He had cataract surgery yesterday and isn't feeling well. She is planning to take him to the eye doctor this a.m. Criselda: Will you please call and reschedule SIM? Thanks Diane Parada LPN documented in this encounterAdena Health System09-12-2022 Miscellaneous Notes* Telephone Encounter - Livier Cook - 02/10/2022 1:25 PM EDT Patient is scheduled and aware of his appt on 02/25/22 for sim * Telephone Encounter - Maddy Waite - 02/07/2022 10:22 AM EDT Pt called with dates. He is having his ablation on Feb 11 and he is now scheduled for cataract surgery on 02/24 with the other eye 2 weeks later. She didn't know if having his cataract surgery would affect his treatment or not. I told her I would let you know the dates and give her a call back withwhen you would like to SIM him. Thanks Maddy Waite MA documented in this encounterAdena Health System08-25-2022 NoteCONSULTATION CONSULTATION DATE: 01/23/2022 HISTORY OF PRESENT ILLNESS: This is a very pleasant, 76-year-old gentleman returning to the clinic status post #2 bilateral MBB of L2, L3 and L4, L5 completed on 01/07/2022. This afforded him 95% relief for one day. This is the most relief the patient has had since the beginning of his chronic pain. He felt well enough that [place]. Sitting on the bleachers and walking that distance aggravated his pain, and the pain became very bad that he needed help getting out of the seat. His pain is shooting down both legs at this time. Activities that aggravate his pain are standing, walking, sitting, stairs, ADLs and physical activity. He currently does not use any heat or ice. Medications include baclofen 10 mg q.h.s., [place] 5/325 t.i.d., Lyrica 75 mg b.i.d. Patient's REVIEW OF SYSTEMS / PAST MEDICAL HISTORY / ALLERGIES and IMAGES have been reviewed and they are noted on the chart. PHYSICAL EXAM: VITAL SIGNS: Blood pressure 122/88, heart rate is 61. Temperature is 98. He is 5'10 , weighs 94.3 kg. GENERAL APPEARANCE: Pleasant, appropriate, in no acute distress sitting in the chair. is present. FOCUSED EXAM - BACK: Range of motion is guarded in lateral rotation and flexion/extension. Reproduction of spinal axial pain noted to direct compression along the posterior elements of the lumbar facets of L2, L3 and L4, L5. Fullness is felt at the facets, which is indicative of facet arthropathy, lumbar spondylosis. Paravertebral muscles are taut but non-spasmodic. Patient has radicular pain bilateral lower extremities to anterolateral aspect to the ankles. MUSCULOSKELETAL: Motor is intact, 4/5 bilaterally. Patient walks with a stable gait, does not use any assistive device. Muscle tone is adequate. NEUROLOGICAL: Blunted bilateral patellar and Achilles reflexes. Radicular along the L4-L5 dermatomes bilaterally to the level of the ankle. IMPRESSION: Lumbar spondylosis, lumbar degenerative disc disease, lumbar radiculitis and spinal axial lower back pain. PLAN: We will progress forward with bilateral radiofrequency ablation of L2, L3 and L4, L5 with sedation. A refill for his Lyrica 75 mg b.i.d. will be sent to the pharmacy. Education was given regarding the use of a menthol heat rub such as Icy Hot or Biofreeze, in addition to a heat pad. He was instructed to do this twice a day, morning and evening. We discussed stretches. Patient states unable to participate in stretching as it aggravates his pain and increases his pain level. Nutrition and vitamin importance was discussed as well. Patient agrees with the plan of care and would like to move forward. He will be followed up in the clinic post procedure.[facility] [id number] Miscellaneous Notes* Telephone Encounter - Diane Parada LPN - 12/30/2021 10:23 AM EDT Nena called back stating Dexter's procedure for his back is not scheduled at this time, they are waiting for insurance approval. She will call the office to schedule a SIM once the appt's for his back injection and ablation are scheduled. Diane Parada LPN * Telephone Encounter - Diane Parada LPN - 12/30/2021 9:10 AM EDT I left a message for Nena to call the office. Diane Parada LPN * Telephone Encounter - Hyun Nazario MD - 12/30/2021 7:36 AM EDT Ok to wait * Telephone Encounter - Diane Parada LPN - 12/26/2021 10:20 AM EDT I left a message for Mrs. Broussard stating Dr. Nazario is out of the office until Thursday and we haven't forgotten about her previous phone message. Diane Parada LPN * Telephone Encounter - Diane Parada LPN - 12/18/2021 11:59 AM EDT Nena, pt's , called to notify Dr. Nazario that Dexter is receiving steroid injections for his back. He received an injection 12/17/21 and is expected to receive one in about 2-3 weeks. He will then have an ablation. He should complete his treatments for his back end of December or early January. Dexter would like to wait until these treatments are complete to start radiation if Dr. Nazario is in agreement. Please advise. Diane Parada LPN documented in this encounterA[facility]07-28-2022 NoteCONSULTATION CONSULTATION DATE: 12/26/2021 HISTORY OF PRESENT ILLNESS: This is a very pleasant and active, 76-year-old gentleman, returning to the clinic status post #1 bilateral MBB of L2, L3 and L4, L5, completed on 12/17/2021. The patient received 90% relief for one hour and then 50% relief for a few hours following. The following day, after the procedure, he had worsening pain than before the procedure. That has since calmed down. His medications include baclofen 10 mg q.h.s., [place] 5/325 t.i.d. and Lyrica 50 mg b.i.d. The Lyrica was new as of his last appointment in October, and the patient has felt some relief. He does have a burning sensation behind his knees and radiating pain from mid lower back to hips and below the knee. Activities such as lifting, bending, stairs, ADLs, pushing and pulling aggravate his pain. Sitting, the use of heat and lying down decrease his pain. Patient's REVIEW OF SYSTEMS / PAST MEDICAL HISTORY / ALLERGIES and IMAGES have been reviewed and they are noted on the chart. PHYSICAL EXAM: VITAL SIGNS: Blood pressure is 112/64. Heart rate is 82. Temperature is 97.8. He is 5'10 and weighs 93.1 kg. GENERAL APPEARANCE: No acute distress, pleasant, appropriate. is present. FOCUSED EXAM - BACK: Range of motion is guarded in lateral rotation and flexion/extension. Paravertebral muscles are non-spasmodic. Reproduction of patient's spinal axial pain noted to direct compression along the posterior elements of the lumbar facets that does not radiate below the knee. Fullness is palpated through the facets which is concurrent with facet arthropathy, lumbar spondylosis. Jose's point is non-tender bilaterally. MUSCULOSKELETAL: Motor is intact, 4/5 bilaterally. There is some muscle atrophy to bilateral lower extremities. Patient walks with a stable gait. Does not use assistive device. NEUROLOGICAL: Diffuse neuropathic pathology down bilateral lower extremities. Blunted patellar and Achilles reflexes. IMPRESSION: Lumbar spondylosis, lumbar degenerative disc, lumbar radiculitis and spinal axial lower back pain. PLAN: We will proceed to gain authorization for #2 bilateral MBB of L2, L3 and L4, L5. The patient was encouraged to add magnesium glycinate 400 mg q.h.s. to his current vitamin regimen. Patient will be followed up in the office post procedure, and he is in agreement to this.[facility] [id number] Nurse Note* Diane Parada LPN - 12/10/2021 9:20 AM EDT AUA= 10 documented in this encounterAdena Health System07-12-2022 History of Present illness Narrative* Hyun Nazario MD - 12/10/2021 9:00 AM EDT Radiation Oncology - Prostate Cancer New Patient/Consult Note PATIENT NAME: Yesenia Broussard PATIENT REQUESTING PROVIDER: Dr. Johnston DIAGNOSIS: 76 year old male with prostate adenocarcinoma, initial PSA 9.95, biopsy Nicola score 3 + 4 = 7 (grade group 2), clinical stage T1b, N0, M0, stage IIB [T1-T2, N0, M0, PSA <20, GG 2] (AJCC 8th ed.), s/p TURP. HPI: 76 year old male with prostate adenocarcinoma who presents for an opinion regarding the role of radiation therapy in the management of the patient's disease. Final recommendations will be communicated back to the requesting physician by way of the shared medical record, or letter to requestingphysician via US mail. The patient was diagnosed with prostate cancer and comes in today to discuss treatment options. Patient presented with obstructive symptoms and suspicious area on exam within the right aspect of the prostate. PSA 04/17/2021 9.95. Transrectal ultrasound-guided biopsy in April 2021 without evidence of malignancy. Because of obstructive symptoms he underwent TURP on 06/06/2021. Pathology demonstrating adenocarcinoma, [place] 7 (3+4), involving 21 to 30% of submitted tissue. No evidence of intraductal component, or LVI. 6 to 10% percentage of [place] pattern 4 Repeat PSA 11/04/2021 3.73. MRI prostate as noted below. Patient otherwise doing well. He does describe ongoing moderate obstructive and frequency related symptoms. He is here today to discuss potential radiation options. Staging Studies: Multi parametric MRI 11/26/2021 : 43 cc gland, BPH changes status post TURP. In the area of the anterior fibromuscular stroma at the level of the prostate base focal area of T2 hypointensity with restricted diffusion and low ADC value measuring 1.8 x 0.8 cm. Bulging of the capsule in this region suggests developing extraprostatic extension. Seminal vesicles unremarkable. Neurovascular bundles unremarkable. No evidence of lymphadenopathy. No suspicious bony findings. The patient reports the following pertinent history: Urinary frequency (D/N): 4-5/3+ Dysuria: No Incontinence: 1- No pads Hematuria: No - Total AUA Score: 10 Bowel Movement Frequency: 1/day Bowel Movement Quality: Normal Blood per Rectum: No Last Colonoscopy: y, Androgen Deprivation: No Prior Radiation Therapy, Collagen Vascular Disease, or Inflammatory Bowel Disease: No Currently on Anticoagulation: No History of Hip Replacement: No History of Prior TURP: No ALLERGIES No Known Allergies Terazosin HCl (HYTRIN) 10 mg capsule aspirin 81 mg cap Take by mouth. pravastatin (PRAVACHOL) 10 mg tablet pravastatin 10 mg tablet atenolol (TENORMIN) 50 mg tablet atenolol 50 mg tablet lisinopril (ZESTRIL, PRINIVIL) 20 mg tablet q 24 HR. HYDROcodone-acetaminophen (NORCO) 5-325 mg per tablet TAKE 1 TABLET BY MOUTH TWICE DAILY NEEDED FOR LUMBAR RADICULOPATHY amLODIPine (NORVASC) 10 mg tablet amlodipine 10 mg tablet baclofen (LIORESAL) 10 mg tablet baclofen 10 mg tablet pregabalin (LYRICA) 50 mg capsule Take 50 mg by mouth twice daily. PAST MEDICAL HISTORY Diagnosis Date HTN (hypertension) Hypercholesterolemia PAST SURGICAL HISTORY Procedure Laterality Date CAROTID ENDARTERECTOMY CC CORONARY STENT PAST SURGICAL HISTORY OF diverticulitis-colon resection PAST SURGICAL HISTORY OF L5 decompression REPAIR OF SHOULDER Bilateral TRANSURETHRAL ELEC-SURG PROSTATECTOM FAMILY HISTORY Problem Relation Age of Onset Ovarian cancer Sister Social History Tobacco Use Smoking status: Current Every Day Smoker Packs/day: 1.00 Years: 60.00 Pack years: 60.00 Smokeless tobacco: Never Used Tobacco comment: 2 ppd x 20 yrs, 1 ppd x 40 yrs Substance Use Topics Alcohol use: Not Currently Drug use: Never REVIEW OF SYSTEMS: GENERAL: feeling well without fatigue, no recent change in weight NECK: denies swelling or pain in neck RESPIRATORY: no cough, no wheezing or shortness of breath CARDIOVASCULAR: no chest pain, no palpitations MUSCULOSKELETAL: Having back pain mainly surgical intervention has follow-up within the next several weeks. SKIN: no rash NEURO: no numbness or paresthesias and no weakness of the extremities As noted in HPI PHYSICAL EXAM: VS: BP 116/68 Pulse (!) 51 Temp 37.1 C (98.7 F) Resp 16 Ht 175.9 cm (5' 9.25 ) Wt 94.3 kg(208 lb) SpO2 97% BMI 30.49 kg/m KARNOFSKY PERFORMANCE STATUS: 100 General Appearance: Alert and oriented. No acute distress. HEENT: NCAT. Sclera anicteric. PERRL. EOMI. Neck: Normal ROM. No palpable cervical or supraclavicular adenopathy. Chest: No respiratory distress. Lungs clear to auscultation bilaterally. Heart: Regular rate and rhythm. Abdomen: Soft. Nontender. Nondistended. Musculoskeletal: No edema. Normal ROM in extremities. No bone or spine tenderness. Neuro: Speech fluent. Gait normal. No focal deficits. Skin: No rashes noted Lymphatics: No palpable lymphadenopathy. GENITOURINARY: Deferred exam RECTAL: Deferred exam RADIOLOGY/LABORATORY DATA: see HPI ASSESSMENT/PLAN: Prostate adenocarcinoma, initial PSA 9.95, biopsy [place] score 3 + 4 = 7 (grade group 2), clinical stage T1b, N0, M0, stage IIB [T1-T2, N0, M0, PSA <20, GG 2] (AJCC 8th ed.), s/pTURP. Prostate cancer (C61), 2019 NCCN Risk Group: Unfavorable Intermediate Risk Group Clinical State: Localized Cancer - New Diagnosis Patient has a localized adenocarcinoma prostate diagnosed after TURP. He does have evidence of a lesion on MRI with possible extracapsular extension. I do feel definitive treatment is warranted. Discussed with patient potential options of management. Patient is not interested in surgical approach. Patient is interested in definitive treatment and wants to pursue radiation approach. We discussed radiation options at length including brachytherapy, external beam therapy, combination external beamwith brachytherapy boost given his unfavorable intermediate risk presentation. In review of the MRII do have concerns regarding the TURP defect which may influence brachytherapy dosimetry especiallywith lesion seen on MRI which may be technically difficult to fully cover with seed since the lesion is such close proximity to the bladder and TURP defect. This can be further reviewed with volume study. After long discussion of options including potential acute and long-term risks of treatment patient wants to pursue external beam treatment. Treatment to include limited pelvic field followed by prostate boost using IMRT and cone beam CT image guidance. Patient does have ongoing significant back issues and may need surgery for this, will await further discussion pending neurosurgical evaluation. Signed by: Hyun Nazario MD cc: Shaikh Dotty [id number] [id number] Barbara Johnston [id number] [place] [id number] documented in this encounterAdena [facility] System06-06-2022 Evaluation + Plan note Diagnostic Tests Pending * PSA Total 11/04/21 [facility] 06-06-2022 Hospital Discharge instructions Patient Education 11/04/2021 10:40:41 Calorie Counting for Weight Loss Calorie Counting for Weight Loss Calories are units of energy. Your body needs a certain amount of calories from food to keep you going throughout the day. When you eat more calories than your body needs, your body stores the extra calories as fat. When you eat fewer calories than your body needs, your body berman fat to get the energy it needs. Calorie counting means keeping track of how many calories you eat and drink each day. Calorie counting can be helpful if you need to lose weight. If you make sure to eat fewer calories than your bodyneeds, you should lose weight. Ask your health care provider what a healthy weight is for you. For calorie counting to work, you will need to eat the right number of calories in a day in order to lose a healthy amount of weight per week. A dietitian can help you determine how many calories youneed in a day and will give you suggestions on how to reach your calorie goal. A healthy amount of weight to lose per week is usually 1 2 lb (0.5 0.9 kg). This usually means thatyour daily calorie intake should be reduced by 500 750 calories. Eating 1,200 1,500 calories per day can help most women lose weight. Eating 1,500 1,800 calories per day can help most men lose weight. What is my plan? My goal is to have calories per day. If I have this many calories per day, I should lose around pounds per week. What do I need to know about calorie counting? In order to meet your daily calorie goal, you will need to: Find out how many calories are in each food you would like to eat. Try to do this before you eat. Decide how much of the food you plan to eat. Write down what you ate and how many calories it had. Doing this is called keeping a food log. To successfully lose weight, it is important to balance calorie counting with a healthy lifestyle that includes regular activity. Aim for 150 minutes of moderate exercise (such as walking) or 75 minutes of vigorous exercise (such as running) each week. Where do I find calorie information? The number of calories in a food can be found on a Nutrition Facts label. If a food does not have aNutrition Facts label, try to look up the calories online or ask your dietitian for help. Remember that calories are listed per serving. If you choose to have more than one serving of a food, you will have to multiply the calories per serving by the amount of servings you plan to eat. Forexample, the label on a package of bread might say that a serving size is 1 slice and that there are 90 calories in a serving. If you eat 1 slice, you will have eaten 90 calories. If you eat 2 slices, you will have eaten 180 calories. How do I keep a food log? Immediately after each meal, record the following information in your food log: What you ate. Don't forget to include toppings, sauces, and other extras on the food. How much you ate. This can be measured in cups, ounces, or number of items. How many calories each food and drink had. The total number of calories in the meal. Keep your food log near you, such as in a small notebook in your pocket, or use a mobile saulo or website. Some programs will calculate calories for you and show you how many calories you have left forthe day to meet your goal. What are some calorie counting tips? Use your calories on foods and drinks that will fill you up and not leave you hungry: ?Some examples of foods that fill you up are nuts and nut butters, vegetables, lean proteins, and high-fiber foods like whole grains. High-fiber foods are foods with more than 5 g fiber per serving. ?Drinks such as sodas, specialty coffee drinks, alcohol, and juices have a lot of calories, yet do not fill you up. Eat nutritious foods and avoid empty calories. Empty calories are calories you get from foods or beverages that do not have many vitamins or protein, such as candy, sweets, and soda. It is better to have a nutritious high-calorie food (such as an avocado) than a food with few nutrients (such as a bag of chips). Know how many calories are in the foods you eat most often. This will help you calculate calorie counts faster. Pay attention to calories in drinks. Low-calorie drinks include water and unsweetened drinks. Pay attention to nutrition labels for low fat or fat free foods. These foods sometimes have thesame amount of calories or more calories than the full fat versions. They also often have added sugar, starch, or salt, to make up for flavor that was removed with the fat. Find a way of tracking calories that works for you. Get creative. Try different apps or programs ifwriting down calories does not work for you. What are some portion control tips? Know how many calories are in a serving. This will help you know how many servings of a certain food you can have. Use a measuring cup to measure serving sizes. You could also try weighing out portions on a kitchenscale. With time, you will be able to estimate serving sizes for some foods. Take some time to put servings of different foods on your favorite plates, bowls, and cups so you know what a serving looks like. Try not to eat straight from a bag or box. Doing this can lead to overeating. Put the amount you would like to eat in a cup or on a plate to make sure you are eating the right portion. Use smaller plates, glasses, and bowls to prevent overeating. Try not to multitask (for example, watch TV or use your computer) while eating. If it is time to eat, sit down at a table and enjoy your food. This will help you to know when you are full. It will also help you to be aware of what you are eating and how much you are eating. What are tips for following this plan? Reading food labels Check the calorie count compared to the serving size. The serving size may be smaller than what youare used to eating. Check the source of the calories. Make sure the food you are eating is high in vitamins and proteinand low in saturated and trans fats. Shopping Read nutrition labels while you shop. This will help you make healthy decisions before you decide to purchase your food. Make a grocery list and stick to it. Cooking Try to cook your favorite foods in a healthier way. For example, try baking instead of frying. Use low-fat dairy products. Meal planning Use more fruits and vegetables. Half of your plate should be fruits and vegetables. Include lean proteins like poultry and fish. How do I count calories when eating out? Ask for smaller portion sizes. Consider sharing an entree and sides instead of getting your own entree. If you get your own entree, eat only half. Ask for a box at the beginning of your meal and put the rest of your entree in it so you are not tempted to eat it. If calories are listed on the menu, choose the lower calorie options. Choose dishes that include vegetables, fruits, whole grains, low-fat dairy products, and lean protein. Choose items that are boiled, broiled, grilled, or steamed. Stay away from items that are buttered,battered, fried, or served with cream sauce. Items labeled crispy are usually fried, unless stated otherwise. Choose water, low-fat milk, unsweetened iced tea, or other drinks without added sugar. If you want an alcoholic beverage, choose a lower calorie option such as a glass of wine or light beer. Ask for dressings, sauces, and syrups on the side. These are usually high in calories, so you should limit the amount you eat. If you want a salad, choose a garden salad and ask for grilled meats. Avoid extra toppings like simon, cheese, or fried items. Ask for the dressing on the side, or ask for olive oil and vinegar or lemon to use as dressing. Estimate how many servings of a food you are given. For example, a serving of cooked rice is cup orabout the size of half a baseball. Knowing serving sizes will help you be aware of how much food you are eating at restaurants. The list below tells you how big or small some common portion sizes arebased on everyday objects: ?1 oz 4 stacked dice. ?3 oz 1 deck of cards. ?1 tsp 1 . ?1 Tbsp a ping-pong ball. ?2 Tbsp 1 ping-pong ball. ? cup baseball. ?1 cup 1 baseball. Summary Calorie counting means keeping track of how many calories you eat and drink each day. If you eat fewer calories than your body needs, you should lose weight. A healthy amount of weight to lose per week is usually 1 2 lb (0.5 0.9 kg). This usually means reducing your daily calorie intake by 500 750 calories. The number of calories in a food can be found on a Nutrition Facts label. If a food does not have aNutrition Facts label, try to look up the calories online or ask your dietitian for help. Use your calories on foods and drinks that will fill you up, and not on foods and drinks that will leave you hungry. Use smaller plates, glasses, and bowls to prevent overeating. This information is not intended to replace advice given to you by your health care provider. Make sure you discuss any questions you have with your health care provider. Document Released: 05/18/2006 Document Revised: 02/04/2019 Document Reviewed: 04/17/2017 [employer] Patient Education 2020 [employer] 11/04/2021 10:39:39 Benign Prostatic Hyperplasia Benign Prostatic Hyperplasia Benign prostatic hyperplasia (BPH) is an enlarged prostate gland that is caused by the normal agingprocess and not by cancer. The prostate is a walnut-sized gland that is involved in the production of semen. It is located in front of the rectum and below the bladder. The bladder stores urine and the urethra is the tube that carries the urine out of the body. The prostate may get bigger as a man gets older. An enlarged prostate can press on the urethra. This can make it harder to pass urine. The build-up of urine in the bladder can cause infection. Back pressure and infection may progress to bladder damage and kidney (renal) failure. What are the causes? This condition is part of a normal aging process. However, not all men develop problems from this condition. If the prostate enlarges away from the urethra, urine flow will not be blocked. If it enlarges toward the urethra and compresses it, there will be problems passing urine. What increases the risk? This condition is more likely to develop in men over the age of 50 years. What are the signs or symptoms? Symptoms of this condition include: Getting up often during the night to urinate. Needing to urinate frequently during the day. Difficulty starting urine flow. Decrease in size and strength of your urine stream. Leaking (dribbling) after urinating. Inability to pass urine. This needs immediate treatment. Inability to completely empty your bladder. Pain when you pass urine. This is more common if there is also an infection. Urinary tract infection (UTI). How is this diagnosed? This condition is diagnosed based on your medical history, a physical exam, and your symptoms. Tests will also be done, such as: A post-void bladder scan. This measures any amount of urine that may remain in your bladder after you finish urinating. A digital rectal exam. In a rectal exam, your health care provider checks your prostate by putting a lubricated, gloved finger into your rectum to feel the back of your prostate gland. This exam detects the size of your gland and any abnormal lumps or growths. An exam of your urine (urinalysis). A prostate specific antigen (PSA) screening. This is a blood test used to screen for prostate cancer. An ultrasound. This test uses sound waves to electronically produce a picture of your prostate gland. Your health care provider may refer you to a specialist in kidney and prostate diseases (urologist). How is this treated? Once symptoms begin, your health care provider will monitor your condition (active surveillance or watchful waiting). Treatment for this condition will depend on the severity of your condition. Treatment may include: Observation and yearly exams. This may be the only treatment needed if your condition and symptoms are mild. Medicines to relieve your symptoms, including: ?Medicines to shrink the prostate. ?Medicines to relax the muscle of the prostate. Surgery in severe cases. Surgery may include: ?Prostatectomy. In this procedure, the prostate tissue is removed completely through an open incision or with a laparoscope or robotics. ?Transurethral resection of the prostate (TURP). In this procedure, a tool is inserted through the opening at the tip of the penis (urethra). It is used to cut away tissue of the inner core of the prostate. The pieces are removed through the same opening of the penis. This removes the blockage. ?Transurethral incision (TUIP). In this procedure, small cuts are made in the prostate. This lessens the prostate's pressure on the urethra. ?Transurethral microwave thermotherapy (TUMT). This procedure uses microwaves to create heat. The heat destroys and removes a small amount of prostate tissue. ?Transurethral needle ablation (TUNA). This procedure uses radio frequencies to destroy and remove a small amount of prostate tissue. ?Interstitial laser coagulation (ILC). This procedure uses a laser to destroy and remove a small amount of prostate tissue. ?Transurethral electrovaporization (TUVP). This procedure uses electrodes to destroy and remove a small amount of prostate tissue. ?Prostatic urethral lift. This procedure inserts an implant to push the lobes of the prostate away from the urethra. Follow these instructions at home: Take [id number] and prescription medicines only as told by your health care provider. Monitor your symptoms for any changes. Contact your health care provider with any changes. Avoid drinking large amounts of liquid before going to bed or out in public. Avoid or reduce how much caffeine or alcohol you drink. Give yourself time when you urinate. Keep all follow-up visits as told by your health care provider. This is important. Contact a health care provider if: You have unexplained back pain. Your symptoms do not get better with treatment. You develop side effects from the medicine you are taking. Your urine becomes very dark or has a bad smell. Your lower abdomen becomes distended and you have trouble passing your urine. Get help right away if: You have a fever or chills. You suddenly cannot urinate. You feel lightheaded, or very dizzy, or you faint. There are large amounts of blood or clots in the urine. Your urinary problems become hard to manage. You develop moderate to severe low back or flank pain. The flank is the side of your body between the ribs and the hip. These symptoms may represent a serious problem that is an emergency. Do not wait to see if the symptoms will go away. Get medical help right away. Call your local emergency services (911 in the [place] Do not drive yourself to the hospital. Summary Benign prostatic hyperplasia (BPH) is an enlarged prostate that is caused by the normal aging process and not by cancer. An enlarged prostate can press on the urethra. This can make it hard to pass urine. This condition is part of a normal aging process and is more likely to develop in men over the age of 50 years. Get help right away if you suddenly cannot urinate. This information is not intended to replace advice given to you by your health care provider. Make sure you discuss any questions you have with your health care provider. Document Released: 05/18/2006 Document Revised: 04/12/2019 Document Reviewed: 06/22/2017 [employer] Patient Education 2020 [employer]. 11/04/2021 10:39:34 Prostate Cancer Prostate Cancer The prostate is a walnut-sized gland that is involved in the production of semen. It is located below a man's bladder, in front of the rectum. Prostate cancer is the abnormal growth of cells in the prostate gland. What are the causes? The exact cause of this condition is not known. What increases the risk? This condition is more likely to develop in men who: Are older than age 65. Are -[place]. Are obese. Have a family history of prostate cancer. Have a family history of breast cancer. What are the signs or symptoms? Symptoms of this condition include: A need to urinate often. Weak or interrupted flow of urine. Trouble starting or stopping urination. Inability to urinate. Pain or burning during urination. Painful ejaculation. Blood in urine or semen. Persistent pain or discomfort in the lower back, lower abdomen, hips, or upper thighs. Trouble getting an erection. Trouble emptying the bladder all the way. How is this diagnosed? This condition can be diagnosed with: A digital rectal exam. For this exam, a health care provider inserts a gloved finger into the rectum to feel the prostate gland. A blood test called a prostate-specific antigen (PSA) test. An imaging test called transrectal ultrasonography. A procedure in which a sample of tissue is taken from the prostate and examined under a microscope (prostate biopsy). Once the condition is diagnosed, tests will be done to determine how far the cancer has spread. This is called staging the cancer. Staging may involve imaging tests, such as: A bone scan. A CT scan. A PET scan. An MRI. The stages of prostate cancer are as follows: Stage I. At this stage, the cancer is found in the prostate only. The cancer is not visible on imaging tests and it is usually found by accident, such as during a prostate surgery. Stage II. At this stage, the cancer is more advanced than it is in stage I, but the cancer has not spread outside the prostate. Stage III. At this stage, the cancer has spread beyond the outer layer of the prostate to nearby tissues. The cancer may be found in the seminal vesicles, which are near the bladder and the prostate. Stage IV. At this stage, the cancer has spread other parts of the body, such as the lymph nodes, bones, bladder, rectum, liver, or lungs. How is this treated? Treatment for this condition depends on several factors, including the stage of the cancer, your age, personal preferences, and your overall health. Talk with your health care provider about treatment options that are recommended for you. Common treatments include: Observation for early stage prostate cancer (active surveillance). This involves having exams, blood tests, and in some cases, more biopsies. For some men, this is the only treatment needed. Surgery. Types of surgeries include: ?Open surgery. In this surgery, a larger incision is made to remove the prostate. ?A laparoscopic prostatectomy. This is a surgery to remove the prostate and lymph nodes through several, small incisions. It is often referred to as a minimally invasive surgery. ?A robotic prostatectomy. This is a surgery to remove the prostate and lymph nodes with the help ofa robotic arm that is controlled by a computer. ?Orchiectomy. This is a surgery to remove the testicles. ?Cryosurgery. This is a surgery to freeze and destroy cancer cells. Radiation treatment. Types of radiation treatment include: ?External beam radiation. This type aims beams of radiation from outside the body at the prostate to destroy cancerous cells. ?Brachytherapy. This type uses radioactive needles, seeds, wires, or tubes that are implanted into the prostate gland. Like external beam radiation, brachytherapy destroys cancerous cells. An advantage is that this type of radiation limits the damage to surrounding tissue and has fewer side effects. High-intensity, focused ultrasonography. This treatment destroys cancer cells by delivering high-energy ultrasound waves to the cancerous cells. Chemotherapy medicines. This treatment kills cancer cells or stops them from multiplying. Hormone treatment. This treatment involves taking medicines that act on one of the male hormones (testosterone): ?By stopping your body from producing testosterone. ?By blocking testosterone from reaching cancer cells. Follow these instructions at home: Take umil-amd-tuqcgod and prescription medicines only as told by your health care provider. Maintain a healthy diet. Get plenty of sleep. Consider joining a support group for men who have prostate cancer. Meeting with a support group mayhelp you learn to cope with the stress of having cancer. Keep all follow-up visits as told by your health care provider. This is important. If you have to go to the hospital, notify your cancer specialist (oncologist). Treatment for prostate cancer may affect sexual function. Continue to have intimate moments with your partner. This may include touching, holding, hugging, and caressing. Contact a health care provider if: You have trouble urinating. You have blood in your urine. You have pain in your hips, back, or chest. Get help right away if: You have weakness or numbness in your legs. You cannot control urination or your bowel movements (incontinence). You have trouble breathing. You have sudden chest pain. You have chills or a fever. Summary The prostate is a walnut-sized gland that is involved in the production of semen. It is located below a man's bladder, in front of the rectum. Prostate cancer is the abnormal growth of cells in the prostate gland. Treatment for this condition depends on several factors, including the stage of the cancer, your age, personal preferences, and your overall health. Talk with your health care provider about treatment options that are recommended for you. Consider joining a support group for men who have prostate cancer. Meeting with a support group mayhelp you learn to cope with the stress of having cancer. This information is not intended to replace advice given to you by your health care provider. Make sure you discuss any questions you have with your health care provider. Document Released: 05/18/2006 Document Revised: 04/30/2018 Document Reviewed: 01/26/2017 [employer] Patient Education 2020 [employer]. Follow Up Care 07/01/2021 09:43:21 With:PRESTON MAK, Barbara Warner, URL Address: [facility] [address] [place] [address]- [phone] When: Unknown Comments:Will schedule MRI of prostate w/wo and Perineal prostate biopsy. [facility] 05-26-2022 Evaluation note* Encounter Date Diagnosis Assessment Notes Treatment Notes Treatment Clinical Notes September, Chronic kidney disea se, stage III (moderate) (ICD-10 - N18.30) Thanks for referring Mr. Broussard to our office for an evaluation and management of CKD. As you know he has a longstanding hypertension and atherosclerotic disease including CAD and PAD. 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 His most recent serum creatinine is 1.5 mg/dL. I have ordered a UA and UPCR to evaluate for hematuria and proteinuria. I have ordered a renal ultrasound to evaluate for renal anatomy. I discussed with him the importance of good HTN control to slow down the progression of CKD. 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 He appears to be euvolemic. Continue current hypertensive medication. September, Secondary hyperparathyroidism (ICD-10 - N25.81) Calcium within normal limit. We will check PTH and vitamin D. September, Dyslipidemia (ICD-10 - E78.5) Continue statins. Monitor LFTs and lipid profile periodically. [employer] Other Evaluation + Plan note Future Appointments Appointment Date:01/06/2023 09:15:00 AM Scheduled Provider:CLAIRE JAMES PA-C Location:[facility] Appointment Type:URO Office Visit [facility] evaluation + Plan note Future Appointments Appointment Date:04/21/2023 08:30:00 AM Scheduled Provider:CLAIRE JAMES PA-C Location:[facility] Appointment Type:URO Office Visit [facility] evaluation + Plan note Future Appointments Appointment Date:07/07/2023 09:00:00 AM Scheduled Provider:CLAIRE JAMES PA-C Location:[facility] Appointment Type:URO Office Visit Diagnostic Tests Pending * Electrolyte Panel 04/21/23 [facility] evaluation + Plan note Future Appointments Appointment Date:07/07/2023 09:00:00 AM Scheduled Provider:CLAIRE JAMES PA-C Location:[facility] Appointment Type:URO Office Visit Diagnostic Tests Pending * Urine Culture 04/21/23 [facility] note* Diagnosis Malignant neoplasm of prostate (HCC)- Primary Malignant neoplasm of prostate [facility] Diagnosis Malignant neoplasm of prostate (HCC)- Primary Malignant neoplasm of prostate [facility]* Diagnosis Malignant neoplasm of prostate (HCC)- Primary Malignant neoplasm of prostate [facility]* Diagnosis Malignant neoplasm of prostate (HCC)- Primary Malignant neoplasm of prostate [facility]* Diagnosis Malignant neoplasm of prostate (HCC) Malignant neoplasm of prostate [facility]* Diagnosis Malignant neoplasm of prostate (HCC)- Primary Malignant neoplasm of prostate [facility]* Diagnosis Malignant neoplasm of prostate (HCC)- Primary Malignant neoplasm of prostate [facility]* Diagnosis Malignant neoplasm of prostate (HCC)- Primary Malignant neoplasm of prostate [facility] noteNo assessment information availableHenry [facility] Work Phone: Evaluation note* Diagnosis Hematuria, unspecified type- Primary Malignant neoplasm of prostate (HCC) Malignant neoplasm of prostate [facility]* Diagnosis Urinary tract infection without hematuria, site unspecified- Primary [facility]* Diagnosis History of prostate cancer- Primary Personal history of malignant neoplasm of prostate Spinal arthritis Spondylosis of unspecified site without mention of myelopathy Spinal stenosis of lumbar region, unspecified whether neurogenic claudication present [facility]* Diagnosis Spinal stenosis of lumbar region without neurogenic claudication- Primary Spinal stenosis, lumbar region, without neurogenic claudication documented in this encounter [facility] note* Diagnosis Spinal stenosis of lumbar region, unspecified whether neurogenic claudication present- Primary documented in this encounter [facility] note* Diagnosis Spinal stenosis, lumbar region with neurogenic claudication- Primary Foraminal stenosis of lumbar region Spinal stenosis, lumbar region, without neurogenic claudication Peripheral artery disease (HCC) Peripheral vascular disease, unspecified Prostate cancer (HCC) Malignant neoplasm of prostate documented in this encounter [facility] noteNo InformationNort [employer] Other Evaluation note* Diagnosis Spinal stenosis, lumbar region with neurogenic claudication- Primary Foraminal stenosis of lumbar region Spinal stenosis, lumbar region, without neurogenic claudication documented in this encounter [facility] note* Diagnosis Spondylolisthesis of lumbar region- Primary Acquired spondylolisthesis documented in this encounter [facility] general Narrative - Reported* Type Description Date Medical History CKD (CHRONIC KIDNEY DISEASE) STA GE III Medical History CLAUDICATION Medical History HYPERLIPIDEMIA Medical History BPH Medical History ANXIETY Medical History CORONARY ATHEROSCLEROSIS Medical History PERIPHERAL ARTERIAL DISEASE Medical History HYPERTENSION Medical History PROSTATE CANCER Surgical History BILATERAL CAROTID ENDARTERECTOM Y 2011 Surgical History CORONARY STENT IN [facility] Surgical History PROSTATE SURGERY Hospitalization History SEE ABOVE [employer] Other History general Narrative - Reported* Type Description Date Medical History CKD (CHRONIC KIDNEY DISEASE) STA GE III Medical History CLAUDICATION Medical History HYPERLIPIDEMIA Medical History BPH Medical History ANXIETY Medical History CORONARY ATHEROSCLEROSIS Medical History PERIPHERAL ARTERIAL DISEASE Medical History HYPERTENSION Medical History PROSTATE CANCER Surgical History BILATERAL CAROTID ENDARTERECTOM Y 2011 Surgical History CORONARY STENT IN [facility] Surgical History PROSTATE SURGERY Surgical History ANGIOPLASTY LT 03/2023 Hospitalization History SEE ABOVE [employer] Other Hospital course Narrative No data available for this section [facility] Discharge instructions No data available for this section [facility] No data available for this section [facility] ([facility]ative[facility] Consultation (Routine) - Authorized Specialty Diagnoses / Procedures Referred By Contac t Referred To Contact Cardiology Diagnoses Hypertension, unspecified type Mixed hyperlipidemia Bilateral carotid artery disease, unspecified type (CMS/HCC) Procedures Follow Up In Cardiology Chaim Grayson DO [address] [facility] [address], [address] [address] Chaim Grayson DO [address] [facility] [address], [address] [address] Referral ID Status Reason Start Date Expiration Date V isits Requested Visits Authorized [id number] Authorized 06/04/2023 06/03/2024 1 1 * Cardiovascular (Routine) - Pending Review Specialty Diagnoses / Procedures Referred By Contac t Referred To Contact Diagnoses Mixed hyperlipidemia Bilateral carotid artery disease, unspecified type (CMS/HCC) Procedures ECG 12 Lead Chaim Grayson DO [address] [place] [address] 2, [place] [id number] Referral ID Status Reason Start Date Expiration Date V isits Requested Visits Authorized [id number] Pending Review 06/04/2023 06/03/2024 1 1 * Consultation (Routine) - Authorized Specialty Diagnoses / Procedures Referred By Contac t Referred To Contact Cardiology Diagnoses Hypertension, unspecified type Bilateral carotid artery disease, unspecified type (CMS/HCC) Procedures Follow Up In Cardiology Chaim Grayson [address] [place] [address] 2, [address] [address] Referral ID Status Reason Start Date Expiration Date V isits Requested Visits Authorized [id number] Authorized 06/04/2023 06/03/2024 1 1 * Cardiac Stress Testing (Routine) - Pending Review Specialty Diagnoses / Procedures Referred By Contac t Referred To Contact Radiology Diagnoses Hypertension, unspecified type Bilateral carotid artery disease, unspecified type (CMS/HCC) Chest pressure Procedures Nuclear Stress Test CHG MYOCARDIAL SPECT MULTIPLE STUDIES CHG MYOCARDIAL SPECT SINGLE STUDY AT REST OR STRESS Chaim Grayson DO [address] [facility] [address], [address] [place] [address] Referral ID Status Reason Start Date Expiration Date V isits Requested Visits Authorized [id number] Pending Review 06/04/2023 06/03/2024 5 5 [facility] Work Phone: Summary Purpose Family History No Family History Records Found Relationship Condition Age at Onset Recorded Date/T ydui father Parkinson's disease Unknown Diabetes mellitus Unknown Not Specified Heart disease Unknown Advance Directives No Advanced Directives Records Found Advance Directive Response Recorded Date/ Time Advance Directives No April 12:23pm Advance Directive Response Recorded Date/ Time Advance Directives No April 1:23pm Chief Complaint and Reason for Visit Chief Complaint H25.12 Chief Complaint H25.12 C61 Chief Complaint medication monitorin g Chief Complaint medication monitorin g M48.061 Chief Complaint medication monitorin g M48.061 M48.061 i65.23 i70.213 Chief Complaint medication monitorin g M48.061 M48.061 i65.23 i70.213 i65.23 i70.213 Chief Complaint medication monitorin g M48.061 M48.061 i65.23 i70.213 i65.23 i70.213 N18.30 I12.9 N25.81 E78.5 Chief Complaint medication monitorin g M48.061 M48.061 i65.23 i70.213 i65.23 i70.213 N18.30 I12.9 N25.81 E78.5 PVD Chief Complaint M48.061 M48.061 i65.23 i70.213 i65.23 i70.213 N18.30 I12.9 N25.81 E78.5 PVD i70.213 Chief Complaint i65.23 i70.213 i65.23 i70.213 N18.30 I12.9 N25.81 E78.5 PVD i70.213 R00.1 Reason for Referral Specialty Diagnoses / Procedures Referred By Contac t Referred To Contact [employer] Diagnoses Spondylolisthesis of lumbar region Procedures CONSULT TO [facility] (CHRONIC PAIN) OFFICE/OUTPATIENT [facility] 60 MINUTES Kodi Reynolds MD [address] [place] [address] Referral ID Status Reason Start Date Expiration Date Visits Requested Visits Authorized [id number] Pending Review PCP Requested Referral 06/12/2023 06/11/2024 1 1 Specialty Diagnoses / Procedures Referred By Contac t Referred To Contact Diagnoses Spinal stenosis, lumbar region with neurogenic claudication Foraminal stenosis of lumbar region Procedures CONSULT TO SPINE SURGERY OFFICE/OUTPATIENT [facility] 60-74 MINUTES Jose Nichols DO [address] [place] [id number] Referral ID Status Reason Start Date Expiration Date Visits Requested Visits Authorized [id number] Pending Review PCP Requested Referral 05/18/2024 1 1 Specialty Diagnoses / Procedures Referred By Contac t Referred To Contact MR IMAGING Diagnoses Spinal stenosis of lumbar region, unspecified whether neurogenic claudication present Procedures MRI LUMBAR SPINE WO/W IVCON MRI SPINAL CANAL LUMBAR W/O & W/CONTR MATRL Hyun Nazario MD [address] [place] [address] [place] [address] Mr Imaging Referral ID Status Reason Start Date Expiration Date Visits Requested Visits Authorized [id number] Pending Review Auto-Generat ed Referral 11/19/2022 12/19/2023 1 1 Specialty Diagnoses / Procedures Referred By Contac t Referred To Contact Neurosurgery Diagnoses Spinal arthritis Procedures CONSULT TO NEUROSURGERY OFFICE/OUTPATIENT [facility] 60-74 MINUTES Hyun Nazario MD [address] [place] [address] Referral ID Status Reason Start Date Expiration Date Visits Requested Visits Authorized [id number] Pending Review PCP Requested Referral 11/18/2022 11/18/2023 1 1 Additional Source Comments (unrecognized sect ion and content) No Status Records FoundNo Status Records FoundNo Status Records FoundNo Status Records FoundNo Status Records FoundNo Status Records FoundNo Status Records FoundNo Status Records FoundNo Status Records FoundNo Status Records FoundNo Status Records Found INFORMATION SOURCE (unrecogn ized section and content) DATE CREATED AUTHOR 06/12/2021 [facility] DATE CREATED AUTHOR AUTHOR'S ORGANIZ ATION 03/27/2022 [facility] DATE CREATED AUTHOR AUTHOR'S ORGANIZ ATION 11/07/2022 [facility] DATE CREATED AUTHOR AUTHOR'S ORGANIZ ATION 01/06/2023 [facility] DATE CREATED AUTHOR AUTHOR'S ORGANIZ ATION 05/30/2023 [facility] DATE CREATED AUTHOR AUTHOR'S ORGANIZ ATION 06/15/2023 [facility] DATE CREATED AUTHOR AUTHOR'S ORGANIZ ATION 06/16/2023 [facility] DATE CREATED AUTHOR AUTHOR'S ORGANIZ ATION 06/29/2023 [facility] DATE CREATED AUTHOR AUTHOR'S ORGANIZ ATION 06/29/2023 [facility] DATE CREATED AUTHOR AUTHOR'S ORGANIZ ATION 07/13/2023 [facility] DATE CREATED AUTHOR AUTHOR'S ORGANIZ ATION 07/14/[address] [facility] REASON FOR VISIT (unrecogniz ed section and content) Reason Comments Consult Reason Comments Patient Update Reason Comments Patient Update Appointment Reason Onset Date Comments Simulation Request Form 03/03/2022 Reason Comments Social Work Services Reason Comments Orders Reason Comments Radiotherapy On-treatment Visit Reason Comments Phlebotomy Reason Comments Results Appointment Reason Comments Prostate Cancer Reason Comments Referral Information Reason Comments Patient Question Appointment Reason Comments Orders Reason Comments Orders Appointment Reason Comments New Patient Low Back Pain Specialty Diagnoses / Procedures Referred By Contac t Referred To Contact Neurosurgery Diagnoses Spinal arthritis Procedures CONSULT TO NEUROSURGERY OFFICE/OUTPATIENT NEW HIGH MDM 60-74 MINUTES Hyun Nazario MD [address] [place] [address] [place] [address] Referral ID Status Reason Start Date Expiration Date Visits Requested Visits Authorized [id number] Pending Review PCP Requested Referral 11/18/2022 11/18/2023 1 1 Reason Comments Appointment Confirmation Reason Comments Establish Care [facility] pvd HTN abn e kg Specialty Diagnoses / Procedures Referred By Contac t Referred To Contact Diagnoses Mixed hyperlipidemia Bilateral carotid artery disease, unspecified type (CMS/HCC) Procedures ECG 12 Lead Chaim Grayson, [address] [facility], [address] [place] [address] Referral ID Status Reason Start Date Expiration Date V isits Requested Visits Authorized [id number] Pending Review 06/04/2023 06/03/2024 1 1 Reason Comments Low Back Pain New Patient Evaluation New Patient Specialty Diagnoses / Procedures Referred By Contac t Referred To Contact Radiology Diagnoses Hypertension, unspecified type Bilateral carotid artery disease, unspecified type (CMS/HCC) Chest pressure Procedures Nuclear Stress Test CHG MYOCARDIAL SPECT MULTIPLE STUDIES CHG MYOCARDIAL SPECT SINGLE STUDY AT REST OR STRESS Chaim Grayson, [address] [facility], [address] [place] [address] Referral ID Status Reason Start Date Expiration Date V isits Requested Visits Authorized [id number] Authorized 06/04/2023 06/03/2024 5 5 Source Comments (unrecognize d section and content) In the event this informatio n is protected by the Federal Confidentiality of Alcohol and Drug Abuse Patient Records regulations: The Federal rules restrict any use of the information to criminally investigate or prosecute any alcohol or drug abuse patient.[facility] System[facility] the event this information is protected by the Federal Confidentiality of Alcohol and Drug Abuse Patient Records regulations: The Federal rules restrict any use of the information to criminally investigate or prosecute any alcohol or drug abuse patient.[facility] SystemIn the event this information is protected by the Federal Confidentiality of Alcohol and Drug Abuse Patient Records regulations: The Federal rules restrict any use of the information to criminally investigate or prosecute any alcohol or drug abuse patient.[facility] SystemIn the event this information is protected by the Federal Confidentiality of Alcohol and Drug Abuse Patient Records regulations: The Federal rules restrict any use of the information to criminally investigate or prosecute any alcohol or drug abuse patient.[facility] SystemIn the event this information is protected by the Federal Confidentiality of Alcohol and Drug Abuse Patient Records regulations: The Federal rules restrict any use of the information to criminally investigate or prosecute any alcohol or drug abuse patient.[facility] SystemIn the event this information is protected by the Federal Confidentiality of Alcohol and Drug Abuse Patient Records regulations: The Federal rules restrict any use of the information to criminally investigate or prosecute any alcohol or drug abuse patient.[facility] SystemIn the event this information is protected by the Federal Confidentiality of Alcohol and Drug Abuse Patient Records regulations: The Federal rules restrict any use of the information to criminally investigate or prosecute any alcohol or drug abuse patient.[facility] SystemIn the event this information is protected by the Federal Confidentiality of Alcohol and Drug Abuse Patient Records regulations: The Federal rules restrict any use of the information to criminally investigate or prosecute any alcohol or drug abuse patient.[facility] SystemIn the event this information is protected by the Federal Confidentiality of Alcohol and Drug Abuse Patient Records regulations: The Federal rules restrict any use of the information to criminally investigate or prosecute any alcohol or drug abuse patient.[facility] SystemIn the event this information is protected by the Federal Confidentiality of Alcohol and Drug Abuse Patient Records regulations: The Federal rules restrict any use of the information to criminally investigate or prosecute any alcohol or drug abuse patient.[facility] SystemIn the event this information is protected by the Federal Confidentiality of Alcohol and Drug Abuse Patient Records regulations: The Federal rules restrict any use of the information to criminally investigate or prosecute any alcohol or drug abuse patient.[facility] SystemIn the event this information is protected by the Federal Confidentiality of Alcohol and Drug Abuse Patient Records regulations: The Federal rules restrict any use of the information to criminally investigate or prosecute any alcohol or drug abuse patient.[facility] SystemIn the event this information is protected by the Federal Confidentiality of Alcohol and Drug Abuse Patient Records regulations: The Federal rules restrict any use of the information to criminally investigate or prosecute any alcohol or drug abuse patient.[facility] SystemIn the event this information is protected by the Federal Confidentiality of Alcohol and Drug Abuse Patient Records regulations: The Federal rules restrict any use of the information to criminally investigate or prosecute any alcohol or drug abuse patient.[facility] SystemIn the event this information is protected by the Federal Confidentiality of Alcohol and Drug Abuse Patient Records regulations: The Federal rules restrict any use of the information to criminally investigate or prosecute any alcohol or drug abuse patient.[facility] SystemIn the event this information is protected by the Federal Confidentiality of Alcohol and Drug Abuse Patient Records regulations: The Federal rules restrict any use of the information to criminally investigate or prosecute any alcohol or drug abuse patient.[facility] SystemIn the event this information is protected by the Federal Confidentiality of Alcohol and Drug Abuse Patient Records regulations: The Federal rules restrict any use of the information to criminally investigate or prosecute any alcohol or drug abuse patient.[facility] SystemIn the event this information is protected by the Federal Confidentiality of Alcohol and Drug Abuse Patient Records regulations: The Federal rules restrict any use of the information to criminally investigate or prosecute any alcohol or drug abuse patient.[facility] SystemIn the event this information is protected by the Federal Confidentiality of Alcohol and Drug Abuse Patient Records regulations: The Federal rules restrict any use of the information to criminally investigate or prosecute any alcohol or drug abuse patient.[facility] SystemIn the event this information is protected by the Federal Confidentiality of Alcohol and Drug Abuse Patient Records regulations: The Federal rules restrict any use of the information to criminally investigate or prosecute any alcohol or drug abuse patient.[facility] SystemIn the event this information is protected by the Federal Confidentiality of Alcohol and Drug Abuse Patient Records regulations: The Federal rules restrict any use of the information to criminally investigate or prosecute any alcohol or drug abuse patient.[facility] SystemIn the event this information is protected by the Federal Confidentiality of Alcohol and Drug Abuse Patient Records regulations: The Federal rules restrict any use of the information to criminally investigate or prosecute any alcohol or drug abuse patient.[facility] SystemIn the event this information is protected by the Federal Confidentiality of Alcohol and Drug Abuse Patient Records regulations: The Federal rules restrict any use of the information to criminally investigate or prosecute any alcohol or drug abuse patient.[facility] SystemIn the event this information is protected by the Federal Confidentiality of Alcohol and Drug Abuse Patient Records regulations: The Federal rules restrict any use of the information to criminally investigate or prosecute any alcohol or drug abuse patient.[facility] SystemIn the event this information is protected by the Federal Confidentiality of Alcohol and Drug Abuse Patient Records regulations: The Federal rules restrict any use of the information to criminally investigate or prosecute any alcohol or drug abuse patient.[facility] SystemIn the event this information is protected by the Federal Confidentiality of Alcohol and Drug Abuse Patient Records regulations: The Federal rules restrict any use of the information to criminally investigate or prosecute any alcohol or drug abuse patient.[facility] SystemIn the event this information is protected by the Federal Confidentiality of Alcohol and Drug Abuse Patient Records regulations: The Federal rules restrict any use of the information to criminally investigate or prosecute any alcohol or drug abuse patient.[facility] SystemIn the event this information is protected by the Federal Confidentiality of Alcohol and Drug Abuse Patient Records regulations: The Federal rules restrict any use of the information to criminally investigate or prosecute any alcohol or drug abuse patient.[facility] SystemIn the event this information is protected by the Federal Confidentiality of Alcohol and Drug Abuse Patient Records regulations: The Federal rules restrict any use of the information to criminally investigate or prosecute any alcohol or drug abuse patient.[facility] SystemIn the event this information is protected by the Federal Confidentiality of Alcohol and Drug Abuse Patient Records regulations: The Federal rules restrict any use of the information to criminally investigate or prosecute any alcohol or drug abuse patient.[facility] SystemIn the event this information is protected by the Federal Confidentiality of Alcohol and Drug Abuse Patient Records regulations: The Federal rules restrict any use of the information to criminally investigate or prosecute any alcohol or drug abuse patient.[facility] SystemIn the event this information is protected by the Federal Confidentiality of Alcohol and Drug Abuse Patient Records regulations: The Federal rules restrict any use of the information to criminally investigate or prosecute any alcohol or drug abuse patient.[facility] SystemIn the event this information is protected by the Federal Confidentiality of Alcohol and Drug Abuse Patient Records regulations: The Federal rules restrict any use of the information to criminally investigate or prosecute any alcohol or drug abuse patient.[facility] Care Teams (unrecognized sec tion and content) Team Status: Active Member Role Status Dates Shaikh Dotty MD Primary Care Provider Active Team Status: Inactive Member Role Status Dates Shaikh Dotty MD Primary Care Provider, Other Provid er Active Jennie Ferrera , VALENTIN-C Attending Provider Active Beer Cooler Relationship Specialty Start Date End Date Shaikh Storm MD [address] [place] [address] PCP - General Primary Care 12/06/21 Barbara Johnston MD [address] [place], [place] [id number] Referring Urology 12/06/21 Beer Cooler Relationship Specialty Start Date End Date Shaikh Storm MD [address] [address] PCP - General Primary Care 12/06/21 Barbara Johnston MD [address] [place] [address] Referring Urology 12/06/21 Beer Cooler Relationship Specialty Start Date End Date Shaikh Storm MD [address] [address] PCP - General Primary Care 12/06/21 Barbara Johnston MD [address] [place] [address] Referring Urology 12/06/21 Beer Cooler Relationship Specialty Start Date End Date Shaikh Storm MD [address] [address] PCP - General Primary Care 12/06/21 Barbara Johnston MD [address] [place] [address] Referring Urology 12/06/21 Beer Cooler Relationship Specialty Start Date End Date Shaikh Storm MD [address] [address] PCP - General Primary Care 12/06/21 Barbara Johnston MD [address] [place] [address] Referring Urology 12/06/21 Constance Durand LSW Truckload Owner Operator 03/04/22 Beer Cooler Relationship Specialty Start Date End Date Shaikh Storm MD [address] [address] PCP - General Primary Care 12/06/21 Barbara Johnston MD [address] [place] [address] Referring Urology 12/06/21 Constance Durand LSW Truckload Owner Operator 03/04/22 Beer Cooler Relationship Specialty Start Date End Date Shaikh Storm MD [address] [address] PCP - General Primary Care 12/06/21 Barbara Johnston MD [address] [place] [address] Referring Urology 12/06/21 Constance Durand LSW Truckload Owner Operator 03/04/22 Beer Cooler Relationship Specialty Start Date End Date Shaikh Storm MD [address] [address] PCP - General Primary Care 12/06/21 Barbara Johnston MD [address] [place] [address] Referring Urology 12/06/21 Constance Durand LSW Truckload Owner Operator 03/04/22 Beer Cooler Relationship Specialty Start Date End Date Shaikh Storm MD [address] [place] [address] PCP - General Primary Care 12/06/21 Barbara Johnston MD [address] [place] [address] Referring Urology 12/06/21 Constance Durand LSW Truckload Owner Operator 03/04/22 Beer Cooler Relationship Specialty Start Date End Date Shaikh Storm MD [address] [place] [address] PCP - General Primary Care 12/06/21 Barbara Johnston MD [address] [place] [address] Referring Urology 12/06/21 Constance Durand [facility] Truckload Owner Operator 03/04/22 Beer Cooler Relationship Specialty Start Date End Date Shaikh Storm MD [address] [address] PCP - General Primary Care 12/06/21 Barbara Johnston MD [address] [place] [address] Referring Urology 12/06/21 Constance Durand LSW Truckload Owner Operator 03/04/22 Beer Cooler Relationship Specialty Start Date End Date Shaikh Storm MD [address] [place] [address] PCP - General Primary Care 12/06/21 Barbara Johnston MD [address] [place] [address] Referring Urology 12/06/21 Constance Durand LSW Truckload Owner Operator 03/04/22 Beer Cooler Relationship Specialty Start Date End Date Shaikh Storm MD [address] [place] [address] PCP - General Primary Care 12/06/21 Barbara Johnston MD [address] [place] [address] Referring Urology 12/06/21 Constance Durand LSW Truckload Owner Operator 03/04/22 Beer Cooler Relationship Specialty Start Date End Date Shaikh Storm MD [address] [place] [address] PCP - General Primary Care 12/06/21 Barbara Johnston MD [address] [place] [address] Referring Urology 12/06/21 Constance Durand LSW Truckload Owner Operator 03/04/22 Beer Cooler Relationship Specialty Start Date End Date Shaikh Storm MD [address] [place] [address] PCP - General Primary Care 12/06/21 Barbara Johnston MD [address] [place] [address] Referring Urology 12/06/21 Constance Durand LSW Truckload Owner Operator 03/04/22 Team Status: Inactive Member Role Status Dates Shaikh Dotty MD Primary Care Provider Active Zeinab Justice MD Attending Provider Active Beer Cooler Relationship Specialty Start Date End Date Shaikh Storm MD [address] [address] PCP - General Primary Care 12/06/21 Barbara Johnston MD [address] [place], [place] [id number] Referring Urology 12/06/21 Constance Durand LSW Truckload Owner Operator 03/04/22 Team Status: Inactive Member Role Status Shaikh Dotty MD Primary Care Provider Active Lyla aNzario MD Attending Provider Active Beer Cooler Relationship Specialty Start Date End Date Shaikh Storm MD [address] [address] PCP - General Primary Care 12/06/21 Barbara Johnston MD [address] [place] [address] Referring Urology 12/06/21 Constance Durand LSW Truckload Owner Operator 03/04/22 Beer Cooler Relationship Specialty Start Date End Date Shaikh Storm MD [address] [address] PCP - General Primary Care 12/06/21 Barbara Johnston MD [address] [place] [address] Referring Urology 12/06/21 Constance Durand LSW Truckload Owner Operator 03/04/22 Beer Cooler Relationship Specialty Start Date End Date Shaikh Storm MD [address] [address] PCP - General Primary Care 12/06/21 Barbara Johnston MD [address] [place] [address] Referring Urology 12/06/21 Constance Durand LSW Truckload Owner Operator 03/04/22 Beer Cooler Relationship Specialty Start Date End Date Shaikh Storm MD [address] [address] PCP - General Primary Care 12/06/21 Barbara Johnston MD [address] [place] [address] Referring Urology 12/06/21 Constance Durand, [facility] Truckload Owner Operator 03/04/22 Beer Cooler Relationship Specialty Start Date End Date Shaikh Storm MD [address] [address] PCP - General Primary Care 12/06/21 Barbara Johnston MD [address] [place] [address] Referring Urology 12/06/21 Constance Durand, [facility] Truckload Owner Operator 03/04/22 Beer Cooler Relationship Specialty Start Date End Date Shaikh Storm MD [address] [address] PCP - General Primary Care 12/06/21 Barbara Johnston MD [address] [place] [address] Referring Urology 12/06/21 Con[facility]and[facility] Truck[facility] Owner Operator 03/04/22 Beer Cooler Relationship Specialty Start Date End Date Shaikh Storm MD [address] [address] PCP - General Primary Care 12/06/21 Barbara Johnston MD [address] [place], [place] [id number] Referring Urology 12/06/21 Constance Durand, GRADUATE RN Truckload Owner Operator 03/04/22 Beer Cooler Relationship Specialty Start Date End Date Shaikh Storm MD [address] [place] [place] [address] PCP - General Primary Care 12/06/21 Barbara Johnston MD [address] [place] [address] Referring Urology 12/06/21 Constance Durand LSW Truckload Owner Operator 03/04/22 Beer Cooler Relationship Specialty Start Date End Date Shaikh Storm MD [address] [place] [address] PCP - General Primary Care 12/06/21 Barbara Johnston MD [address] [place] [address] Referring Urology 12/06/21 Constance Durand, GRADUATE RN Truckload Owner Operator 03/04/22 Team Status: Inactive Member Role Status Dates Shaikh Dotty MD Primary Care Provider Active Temporary Anesthesiologist Attending Provider Active Beer Cooler Relationship Specialty Start Date End Date Shaikh Storm MD [address] [place] [address] PCP - General Primary Care 12/06/21 Barbara Johnston MD [address] [place] [address] Referring Urology 12/06/21 Constance Durand, GRADUATE RN Truckload Owner Operator 03/04/22 Team Status: Inactive Member Role Status Dates Shaikh Dotty MD Primary Care Provider Active Jose Martin Mchugh MD Attending Provider Active Team Status: Inactive Member Role Status Dates Shaikh Dotty MD Primary Care Provider Active Theo Park MD Attending Provider Active Beer Cooler Relationship Specialty Start Date End Date Shaikh Storm MD [address] [place] [place] [address] PCP - General Primary Care 12/06/21 Barbara Johnston MD [address] [place] [address] Referring Urology 12/06/21 Constance Durand LSW Truckload Owner Operator 03/04/22 Beer Cooler Relationship Specialty Start Date End Date Shaikh Storm MD [address] [place] [address] PCP - General Primary Care 12/06/21 Barbara Johnston MD [address] [place] [address] Referring Urology 12/06/21 Constance Durand LSW Truckload Owner Operator 03/04/22 Team Status: Inactive Member Role Status Dates Shaikh Dotty MD Primary Care Provider, Attending Pr ovider Active Beer Cooler Relationship Specialty Start Date End Date Shaikh Storm MD [address] [place] [address] PCP - General Internal Medicine 06/04/23 Beer Cooler Relationship Specialty Start Date End Date Shaikh Storm MD [address] [place] [address] PCP - General Primary Care 12/06/21 Barbara Johnston MD [address] [place] [address] Referring Urology 12/06/21 Constance Durand LSW Truckload Owner Operator 03/04/22 Beer Cooler Relationship Specialty Start Date End Date Shaikh Storm MD [address] [place] [address] PCP - General Internal Medicine 06/04/23 Beer Cooler Relationship Specialty Start Date End Date Shaikh Storm MD [address] [place] [address] PCP - General Internal Medicine 06/04/23 Goals (unrecognized section and content) Goals may be documented in a n alternate section FOR RECORDS PERTAINING TO PATIENTS WHO ARE OR HAVE BEEN ENROLLED IN A CHEMICAL DEPENDENCY/SUBSTANCEABUSE PROGRAM, SOME INFORMATION MAY BE OMITTED. This clinical summary was aggregated from multiple sources. Caution should be exercised in using it in the provision of clinical care. This summary normalizes information from multiple sources, and as a consequence, information in this document may materially change the coding, format and clinical context of patient data. In addition, data may be omitted in some cases. CLINICAL DECISIONS SHOULD BE BASED ON THE PRIMARY CLINICAL RECORDS. [facility]. provides no warranty or guarantee of the accuracy or completeness of information in this document.
[2023-08-10 11:16] VITALS: BP 155/87; PULSE 104; RESP 16; TEMP 37.3; O2SAT 97
[2023-08-10 11:36] VITALS: BP 170/84; PULSE 102; RESP 18; O2SAT 97
[2023-08-10 11:37] VITALS: BP 180/90; PULSE 108; RESP 18; O2SAT 97
--- NOTE | 2023-08-10 11:40 | P.ON_ITS ---
Date of procedure: 08/10/23 Pre-op diagnosis: Lumbar stenosis with neurogenic claudication Post-op diagnosis: same as pre-op Procedure: Procedure: Right L4-5, L5-S1 transforaminal epidural steroid injection Medications: Bupivacaine 0.25% 2cc, lidocaine 2% 1cc, kenalog 80mg The patient was seen and examined in the preoperative holding area.? Informed consent was obtained and placed on the chart.? Patient was brought to the medical procedure unit and placed in the prone position where a timeout was completed verifying the correct patient, procedure site, position, and planned special equipment using sterile aseptic technique.? Under direct fluoroscopic visualization a 25-gauge Quincke tipped spinal needle was advanced to the designated neural foramen where contrast dye was injected to show adequate spread.? The needle was inserted at level right L4-5. There was no evidence of vascular or adverse uptake.? Epidural spread was appreciated.? The above- mentioned injectate was then placed in a 1.5 mL aliquot preceded by negative aspiration.? The needle was removed. The needle was inserted and the procedure repeated at level right L5-S1.? The surgery site was covered.? Patient was taken to the postprocedural recovery area and monitored for an appropriate length of time before found suitable for discharge in the accompaniment of a responsible adult. Anesthesia: Local Surgeon: Adalid Will Pathology: none sent Condition: stable Disposition: no change
[2023-08-10] MEDS: 0.9 % SODIUM CHLORIDE 10 ML INJ (11:41)
[2023-08-10] MEDS: BUPIVACAINE HCL 0.25% PF 25 MG/10 ML VIAL INJ (11:41)
[2023-08-10] MEDS: IOHEXOL 240 MG/ML - 10 ML VIAL 24 MG INJ (11:42)
[2023-08-10] MEDS: TRIAMCINOLONE ACETONIDE 40 MG/ML VIAL 80 MG INJ (11:42)
[2023-08-10] MEDS: LIDOCAINE HCL 2% PF 100 MG/5 ML VIAL 3 ML INJ (11:42)
== END 2023-08-10 11:43 | disposition home or self-care (01) ==
PROVIDERS: PCP Internal Medicine; Visit Provider Anesthesiology
DX: M48.062 Spinal stenosis, lumbar region with neurogenic claudication (principal)
CPT/HCPCS: 64483; 64484; Q9966

== ENCOUNTER 2023-08-19 10:54 | Outpatient (OUT) | payer MEDICARE, SELFPAY ==
--- OUTSIDE RECORDS SUMMARY | 2023-08-19 11:07 | XMS_ITS | CCD ---
Author Organization [facility] Care Team Providers Care Oil Painter Name Role Phone Sterling Vizcaino Primary Care Physician [phone] Theo Thakkar Unavailable Dotty MAK [facility] Primary Care Provider Barbara Johnston MD Unavailable DOTTY [facility] Primary Care Physician [phone] Dotty MAK [facility] Primary Care Provider Barbara Johnston MD Unavailable [phone] Constance Beverly Unavailable Unavailable Dotty MAK [facility] Primary Care Provider Barbara Johnston MD Unavailable Constance Beverly Unavailable Unavailable MD Dotty [facility] Primary Care Provider MD Zeinab Justice Attending Provider MD Lyla Nazario Attending Provider LAKSHMIPATHY ., NARENDRANATH Attending Kiera vailable LAKSHMIPATHY ., NARENDRANATH Admitting Kiera vailable HALKER .HUBERT Consulting Unavailable [facility] Primary Care Unavailable OLIVA ., DR HOSEA Davison Admitting Unavailable HOBBS ., LOPEZ Consulting Unavailable OLIVA ., DR HOSEA Davison Attending Unavailable [facility] Primary Care Unavailable OLIVA ., DR HOSEA Davison Admitting Unavailable OLIVA ., DR HOSEA Davison Consulting Unavailable [facility] Primary Care Unavailable KRISTEN ., DR HOSEA Davison Attending Unavailable [facility] Consulting Unavailable HOBBS ., LOPEZ Consulting Unavailable OLIVA ., DR HOSEA Davison Attending Unavailable OLIVA ., DR HOSEA Davison Admitting Unavailable [facility] Primary Care Unavailable OLIVA ., DR HOSEA Davison Consulting Unavailable OLIVA ., DR HOSEA Davison Admitting Unavailable OLIVA ., DR HOSEA Davison Consulting Unavailable [facility], [facility] Primary Care Unavailable OLIVA ., DR HOSEA Davison Attending Unavailable [facility], [facility] Consulting Unavailable JONATHAN MARTIN Consulting Unavailable HOBBS ., LOPEZ Consulting Unavailable OLIVA ., DR HOSEA Davison Admitting Unavailable [facility], [facility] Primary Care Unavailable OLIVA ., DR HOSEA Davison Attending Unavailable HOBBS ., LOPEZ Consulting Unavailable OLIVA ., DR HOSEA aDvison Attending Unavailable OLIVA ., DR HOSEA Davison Admitting [facility]available [facility], [facility] Primary Care Unavailable OLIVA ., DR HOSEA Davison Attending Unavailable OLIVA ., DR HOSEA Davison Admitting Unavailable [facility], [facility] Primary Care Unavailable OLIVA ., DR HOSEA Davison Consulting Unavailable HOBBS ., LOPEZ Consulting Unavailable OLIVA ., DR HOSEA Davison Attending Unavailable OLIVA ., DR HOSEA Davison Admitting Unavailable [facility], [facility] Primary Care Unavailable OLIVA ., DR HOSEA Davison Admitting Unavailable [facility], [facility] Primary Care Unavailable OLIVA ., DR HOSEA Davison Attending Unavailable OLIVA ., DR HOSEA Davison Admitting Unavailable OLIVA ., DR HOSEA Davison Consulting [facility], [facility] Primary Care Unavailable OLIVA ., DR HOSEA Davison Attending Unavailable [facility], [facility] Primary Care Unavailable JOHNSTON ., DR JIMENEZ Consulting Unavailable JOHNSTON ., DR JIMENEZ Attending Unavailable JOHNSTON ., DR JIMENEZ Admitting Unavailable VIVIAN, THEO Consulting Unavailable VIVIANTHEO Attending Unavailable VIVIAN, THEO Admitting Unavailable [facility], [facility] Primary Care Unavailable RUT KIRBY Attending Unavailable RUT KIRBY Admitting Unavailable [facility], [facility] Primary Care Unavailable MD Justice Storm Primary Care Provider MD Justice Storm Other Provider ABE Ferrera Attending Provider [phone] Anesthesiologist, Temporary Attending Provider U prabhu Bonnie Tan Unavailable MD Lyla Nazario Attending Provider MD Jose Martin Mchugh Attending Provider MD Theo Thakkar Attending Provider Jose Martin Mchugh Unavailable MD Dotty [facility] Primary Care Provider Anesthesiologist, Temporary Attending Provider U MD Lyla Carvalho Attending Provider MD Jose Martin Mchugh Attending Provider [phone] MD Theo Thakkar Attending Provider [phone] MD Dotty [facility] Primary Care Provider [phone] MD Dotty [facility] Attending Provider [facility], [facility] Primary Care Unavailable Genoveva NAZARIO Attending Unavailable [facility], [facility] Primary Care Unavailable [facility], [facility] Primary Care Unavailable [facility], [facility] Primary Care Unavailable Genoveva NAZARIO Attending Unavailable [facility] Primary Care Unavailable [facility], [facility] Primary Care Unavailable [facility], [facility] Primary Care Unavailable JOSE NICHOLS Attending Unavailable Genoveva NAZARIO Referring Unavailable [facility], [facility] Primary Care Unavailable BHUMIKA BETTS Attending Unavailable Dotty MAK, [facility] Primary Care Provider Theo Thakkar Admitting Unavailable Theo Thakkar Attending Unavailable [facility], [facility] Primary Care Unavailable Jose Martin Mchugh Admitting Unavailabl e Fawad, [facility] Primary Care Unavailable Jose Martin Mchugh Attending Unavailabl e [place], [facility] Primary Care [facility]available [facility] Attending Unavailable [facility], [facility] Admitting Unavailable [facility], [facility] Primary Care Unavailable Stacia Grayson Admitting Unavailable Stacia Grayson Attending Unavailable Anesthesiologist, Temporary Admitting Unav ailable Anesthesiologist, Temporary Attending Unav ailable [facility] Primary Care Unavailable Lyla Nazario Admitting Unavailable Lyla Nazario Attending Unavailable [facility] Care Unavailable [facility] Care Unavailable Langenberg, Jose Martin T Admitting Unavailabl e Langenberg, Jose Martin T Attending Unavailabl e [facility] Consulting Unavailable [facility] Primary Care Unavailable Iban, Jennie E Admitting Unavailable Iban, Jennie E Attending Unavailable [facility] Primary Care Unavailable Langenberg, Jose Martin T Admitting Unavailabl e Langenberg, Jose Martin T Attending Unavailabl e [facility] Care Unavailable Langenberg, Jose Martin T Admitting Unavailabl e Langenberg, Jose Martin T Attending Unavailabl e JOSE NICHOLS Referring Unavailable [facility] Care Unavailable KODI REYNOLDS Attending Unavailable staciacabooker MAK, [facility] Provider [phone] CHAIM GRAYSON S Referring Unavailable [facility] Care Unavailable KENAN, CHAIM S Referring Unavailable [facility] Care Unavailable KENAN, CHAIM S Referring Unavailable [facility] Care Unavailable [facility] Attending Unavailable [facility] Attending Unavailable [facility] Referring Unavailable KENAN CHAIM S Attending Unavailable [facility] Care Unavailable KENAN, CHAIM S Referring Unavailable KENAN CHAIM S Referring Unavailable [facility] Care Unavailable BRITNIEARNEST SHRESTHAFER E Admitting Unavailable BRITNI CLAIRE E Attending Unavailable BRITNI, CLAIRE E Admitting Unavailable BRITNI, CLAIRE E Attending Unavailable BRITNICLAIRE SHRESTHA E Attending Unavailable [facility] Care Unavailable Barbara JOHNSTON Attending Unavailable BRITNICLAIRE SHRESTHA E Attending Unavailable [facility] Care Unavailable BRITNI, CLAIRE E Attending Unavailable [facility] Primary Care Unavailable BRITNI, CLAIRE E Attending Unavailable BRITNI, CLAIRE E Attending Unavailable Nicolette MAK, Adalid Powers Attending Unavailable Shaikh Storm MD Primary Care Provider [phone] Allergies Allergy Classification Reported Allergen(s) Allergy Type Date of Onset Reaction(s) Facility (10 sources) ezetimibe; Translations: [ezetimibe] Drug Allergy 3 GI intolerance, Nausea/vomiting [facility] (6 sources) HMG-CoA reductase inhibitor; Translations: [[id number] A REDUCTASE INHIBITORS] Drug Intolerance 3 Other [facility] Work Phone: Medications Current Medications Medication Drug [...] 11:00pm February 06, 2023 10:57am Start: 03-22-2021 [place] 5/325 Ta b Oral, q6hr, Refill(s) 0 Start Date: 03/22/21 Status: Ordered Start: 03-22-2021 [place] 5/325 Ta b Oral, q6hr, Refill(s) 0 Start Date: 03/22/21 Status: Ordered take 1 tablet by leslie th every six hours as needed [place] 5-325 MG 1 tablet as needed Orally [...] mg) by mouth once daily. 0 06/02/2023 08/18/2023 Discontinued (Therapy completed) Comment on above: amlodipine 10 mg tab let amoxicillin 500 mg oral capsule (2 sources) Penicillin-class Antibacterial Start: 3 take 1 capsule by mouth every eight hours Amoxicillin 500 MG 1 capsule Orally every 8 hrs for 5 day(s) Mar, Active aspirin 81 mg delayed release oral tablet (20 sources) Platelet Aggregation Inhibitor, Nonsteroidal Anti-inflammatory Drug Start: take 1 tablet by mouth once daily [...] 14 days. clopidogrel 75 mg oral tablet (11 sources) P2Y12 Platelet Inhibitor Start: 03-23-20 End: 08-18-19 take 1 tablet by mouth once daily clopidogrel (Plavix) 75 mg tablet Indications: Bilateral carotid artery disease, unspecified type (CMS/HCC) Take 1 tablet (75 mg) by mouth once daily. 90 tablet 3 08/18/2023 08/17/2024 Active Clopidogrel Bisu lfate Active desmopressin acetate 0.1 mg oral tablet (6 sources) Vasopressin Analog, Factor VIII Activator Start: [...] day(s), # 5 tab(s), Refills(s) 0, Pharmacy: [id number], 178, cm, 04/21/23 8:36:00 EST, Height/Length [...] to procedure. ergocalciferol 1.25 mg oral capsule (7 sources) Provitamin D2 Compound Start: 03-10-2023 take 1 capsule by mouth every week Ergocalciferol 1.25 MG (35785 UT) 1 capsule Orally Q week for 90 days Mar, Active take 1 capsule by mouth every we ek ergocalciferol (Vitamin D-2) 1.25 MG (99711 UT) capsule Take 1 capsule (1,250 mcg) by mouth 1 (one) time per week. 0 Active ezetimibe 10 mg oral tablet (2 sources) Dietary Cholesterol Absorption Inhibitor Start: 03-25-2021 take 1 mg by mouth once daily ezetimibe 10 mg Tab mg tab(s), Oral, Daily, Refills(s) 0 Start Date: 03/25/21 Status: Ordered gabapentin 100 mg oral capsule (18 sources) Anti-epileptic Agent Start: 02-11-2023 take 1 capsule by mouth twice daily gabapentin (Neurontin) 100 mg capsule Take 1 capsule (100 mg) by mouth 2 times a day. 0 02/11/2023 Active Start: 02-06-2023 take 1 capsule by [facility] once daily at bedtime gabapentin (Neurontin) 100 [...] tablet (2 sources) Leukotriene Receptor Antagonist Start: 03-25-20 take 1 mg by mouth once daily montelukast 10 mg Tab mg tab(s), Oral, Daily, Refills(s) 0 Start Date: 03/25/21 Status: Ordered nitroglycerin 0.4 mg sublingual tablet (1 source) Nitrate Vasodilator Start: 08-18-19 End: 08-18-19 nitroglycerin (Nitrostat) 0.4 mg SL tablet Indications: Chest pain, unspecified type Place 1 tablet (0.4 mg) under the tongue every 5 minutes if needed for chest pain. May repeat dose every 5 minutes for up to 3 doses total. 100 tablet 11 08/18/2023 08/17/2024 Active Oxybutinin XL 5mg (4 sources) Oxybutinin XL 5m g ONCE A DAY Active Oxybutinin XL 5m g Active oxybutynin chloride 5 mg oral tablet (9 sources) Cholinergic Muscarinic Antagonist Start: 02-11-2023 take 2 tablets by mouth at bedtime oxybutynin 5 mg Tab 10 mg = 2 tab(s), Oral, Bedtime, # 60 tab(s), Refills(s) 3, Pharmacy: [id number], 178, cm, 02/11/23 14:50:00 EDT, Height/Length [...] Bedtime, # 30 tab(s), Refills(s) 2, Pharmacy: [id number], 178, cm, 12/03/22 15:00:00 EDT, Height/Length Dosing, 93, kg, 12/03/22 15:00:00 EDT, Weight Dosing Start Date: 12/03/22 Status: Ordered pravastatin sodium 40 mg oral tablet (20 sources) HMG-CoA Reductase Inhibitor Start: 03-23-2023 End: 08-17-2024 take 1 tablet by mouth once daily at bedtime pravastatin (Pravachol) 40 mg tablet Indications: Mixed hyperlipidemia , Bilateral carotid artery disease, unspecified type (CMS/HCC) Take 1 tablet (40 mg) by mouth once daily at bedtime. 90 tablet 3 08/18/2023 08/17/2024 Active Start: 03-22-2021 End: 03-23-2023 pravastatin (PRAVACHOL) 10 m g tablet pravastatin 10 mg tablet 0 03/22/2021 Active Comment on above: pravastatin 10 mg ta blet sildenafil 50 mg oral tablet (6 sources) Phosphodiesterase 5 Inhibitor Start: 04-21-20 23 sildenafil (Viagra) 50 mg tablet Take 1 tablet (50 mg) by mouth if needed. 0 04/21/2023 Active valsartan 80 mg oral tablet (5 sources) Angiotensin 2 Receptor Miroslava Start: 06-04-19 End: 08-18-19 take 1 tablet by mouth once daily valsartan (Diovan) 80 mg tablet Indications: Hypertension, unspecified type Take 1 tablet (80 mg) by mouth once daily. 30 tablet 11 08/18/2023 08/17/2024 Active vitamin B12 (2 sources) Vitamin B12 [...] Start: 11-04-2021 take 1 capsule by mo uth twice daily Lyrica 25 mg Cap 25 [...] 10 mg oral capsule (20 sources) alpha-Adrenergic Miorslava Start: 10-04-2021 Terazosin HCl (HYTRIN) 10 mg capsule Start: 03-22-2021 take 1 mg by mouth o nce daily at bedtime terazosin 2 mg Cap mg cap(s), Oral, Once a day (at bedtime), Refills(s) 0 Start Date: 03/22/21 Status: Ordered Problems Active Problems Problem Classification Problem Date Documented Date Episodic/Chronic Abdominal hernia (10 sources) Umbilical hernia; Translations: [Umbilical hernia without obstruction or gangrene] Onset: 06-04-19 24 03-25-2021 Episodic Acute cerebrovascular disease (4 sources) Cerebrovascular accident; Translations: [Cerebral infarction, unspecified] Onset: 06-04-19 24 06-04-2023 Chronic Anxiety disorders (10 sources) Anxiety; Translations: [Anxiety disorder, unspecified] Onset: 06-04-19 24 03-22-2021 Chronic Cancer of prostate (20 sources) Malignant neoplasm of prostate; Translations: [Malignant tumor of prostate] Onset: 11-05-19 Chronic Chronic kidney disease (20 sources) Chronic kidney disease stage 3; Translations: [Stage 3 chronic kidney disease] Onset: 11-20-19 23 11-19-2022 Chronic Chronic kidney disease (6 sources) Chronic kidney disease; Translations: [Chronic kidney disease, stage III (moderate)] Onset: 10-25-19 Resolved : 10-25-19 Coronary atherosclerosis and other heart disease (7 sources) History of myocardial infarction; Translations: [Old myocardial infarction] Onset: 06-04-1906-04-2023 Chronic Coronary atherosclerosis and other heart disease (2 sources) Coronary atherosclerosis and other heart disease; Translations: [Atherosclerosis of hopi arteries of extremities with intermittent claudication, bilateral legs] Onset: 03-23-20 Disorders of lipid metabolism (20 sources) Hyperlipidemia; Translations: [Dyslipidemia] Onset: 10-25-19 Resolved : 10-25-1903-22-2021 Chronic Essential hypertension (17 sources) Hypertensive disorder; Translations: [Essential (primary) hypertension] [...] Chronic Inflammatory conditions of male genital organs (10 sources) Chronic prostatitis; Translations: [Chronic prostatitis] Onset: 06-04-1905-13-2021 Chronic Inflammatory conditions of male genital organs (6 sources) Prostatitis 03-25-2021 Episodic Nephritis; nephrosis; renal sclerosis (4 sources) 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; Translations: [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] Onset: 06-04-19 24 06-04-2023 Chronic Nonspecific chest pain (10 sources) Chest discomfort; Translations: [Other chest pain] Onset: 06-04-19 24 06-04-2023 Episodic Other acquired deformities (1 source) Lumbar spondylolisthesis; Translations: [Spondylolisthesis, lumbar region] 06-12-2023 Episodic Other acquired deformities (1 source) Spondylolisthesis, lumbar region; Translations: [Spondylolisthesis of lumbar region] Onset: 06-12-19 Episodic Other aftercare (1 source) Encounter for surgical aftercare following surgery on the circulatory system Episodic Other and ill-defined heart disease (10 sources) Heart disease; Translations: [Heart disease, unspecified] Onset: 06-04-1903-22-2021 Chronic Other circulatory disease (6 sources) Disorder of carotid artery; Translations: [Disorder of arteries and arterioles, unspecified] Onset: 06-04-1906-04-2023 Chronic Other circulatory disease (4 sources) Disorder of arteries and arterioles, unspecified; Translations: [Disorder of arteries and arterioles, unspecified ([facility])] Onset: 06-04-19 Chronic Other diseases of kidney [...] Episodic Other diseases of kidney and ureters (10 sources) Kidney disease; Translations: [Disorder of kidney and ureter, unspecified] Onset: 06-04-1903-22-2021 Episodic Other male genital disorders (7 sources) Male erectile dysfunction, unspecified; Translations: [Erectile dysfunction] Onset: 04-21-20 Chronic Other nervous system disorders (10 sources) Chronic pain syndrome; Translations: [Chronic pain syndrome] Onset: 06-04-1903-22-2021 Chronic Other nervous system disorders (1 source) Other chronic pain; Translations: [OTHER CHRONIC PAIN] Onset: 02-15-20 Chronic Other nutritional; endocrine; and metabolic disorders (2 sources) Overweight in adulthood with body mass index of 25 or more but less than 30; Translations: [Body mass index (BMI) 28.0-28.9, adult] Onset: 08-18-19 24 08-18-2023 Episodic Peripheral and visceral atherosclerosis (18 sources) Peripheral vascular disease, unspecified; Translations: [Peripheral [...] lumbar region] Onset: 01-25-20 Episodic Substance-related disorders (14 sources) Smoker; Translations: [Nicotine dependence, unspecified, uncomplicated] Onset: 06-04-1903-22-2021 Chronic Comment on above: Added secondary to d ocumentation in Social History. Unclassified (6 sources) Finding of sensation of bladder 03-25-2021 Unclassified (4 sources) LOW BACK PAIN, UNSPECIFIED; Translations: [LOW BACK PAIN, UNSPECIFIED] Onset: 12-14-19 Unclassified (1 source) CONTACT W/AND (SUSP) EXPOS COVID-19; Translations: [CONTACT W/AND (SUSP) EXPOS COVID-19] Onset: 02-10-20 Unclassified (1 source) CHRN KIDNEY DISEASE STG 3 UNSP; Translations: [CHRN KIDNEY DISEASE STG 3 UNSP] Onset: 02-01-20 Unclassified (1 source) Bradycardia, unspecified; Translations: [Bradycardia, unspecified] Onset: 05-21-20 23 Unclassified (1 source) Occlusion and stenosis of bilateral carotid arteries; Translations: [Occlusion and stenosis of bilateral carotid arteries] Onset: 03-04-20 Unclassified (1 source) Spinal stenosis, lumbar region without neurogenic claudication; Translations: [Spinal stenosis, lumbar region without neurogenic claudication] Onset: 02-21-20 Urinary tract infections (13 sources) Urinary tract infectious disease; Translations: [Urinary tract infection, site not specified] Onset: 10-29-19 Episodic Past or Other Problems Problem Classification Problem Date Documented Da te Episodic/Chronic Cancer of prostate (5 sources) History of malignant neoplasm of prostate; Translations: [Personal history of malignant neoplasm of prostate] Onset: 04-27-2023 Episodic Cardiac dysrhythmias (4 sources) Bradycardia; Translations: [Bradycardia, unspecified] Onset: 04-27-2023 06-04-2023 Episodic Other connective tissue disease (4 sources) Other muscle spasm; Translations: [OTHER MUSCLE SPASM] Onset: 03-13-2022 Episodic Unclassified (1 source) LOW BACK PAIN, UNSPECIFIED; Translations: [LOW BACK PAIN, UNSPECIFIED] Onset: 12-12-2021 Unclassified (4 sources) Onset: 06-04-2023 Resolved: 08-18-2023 06-04-2023 Results Test Name Value Interpretation Reference Range Facility ECG 12 Leadon 08-18-2023 Normal sinus rhythm, right bundle branch block and left anterior fascicular block consistent with bifascicular block, abnormal ECG [facility] Work Phone: S Urineon 07-11-2023 Bacteria identified Cx Nom (U) Microbiology PROCEDURE: Urine Culture [R1] SOURCE: U Random BODY SITE: COLLECTED DATE/TIME: 07/07/2023 09:50 EST RECEIVED DATE/TIME: 07/07/2023 19:09 EST START DATE/TIME: 07/07/2023 19:09 EST FREE TEXT SOURCE: CLAIRE JAMES PA-C, PA-C, CLAIRE Boswell FINAL REPORTS Final Report [] Verified Date/Time: [...] Locations R1: This test was performed at: [facility], [address] [place] [address], [facility]- , , [facility] Comment on above: Performed By: #### [id number] ####[facility] [address] [place] [address] Consultation Noteon 07-08-19 Consultation Note [id number] [facility] Lab Reportson 07-08-2023 Lab Reports [id number] [facility] Patient Educationon 07-07-19 24 Patient Education Urology [...] keep your urine pale yellow. ? Take wcbq-ndx-okducmc or prescription medicines. ? Eat foods that are high in fiber, such as beans, whole grains, and fresh fruits and vegetables. ? Limit foods that are high in fat and processed sugars, such as fried or sweet foods. General instructions ? Take qavk-wyy-qwlluuw and prescription medicines only as told by [...] muscles that help control urination. ? Take tann-lpx-xyyqncd and prescription medicines only as told by your health care provider. ? Contact a health care provider if your symptoms do not improve or get worse. This information is not intended to replace advice given to you by your health care provider. Make sure you discuss any questions you have with your health care provider. Document Revised: 12/21/2020 Document Reviewed: 12/21/2020 [employer] Patient Education ? 2022 [employer]. [facility] Urology Office/Clinic Noteon 07-07-2023 Urology Office/Clinic Note [...] Information PRESTON MAK, Barbara Warner, URL [address] [place] [address]- Additional Instructions: 3 mos Patient Education Urinary Frequency, Adult Documentation recorded by the martin Saenz accurately reflects the services(s) I performed and decisions made (more content not included)... Normal [facility] Comment on above: Result Comment: Elec tronically Signed By: CLAIRE JAMES PA-C\.br\Date and Time Signed: 07/07/23 10:08 EST\.br\Electronically Co-Signed By: Tabitha Saenz.br\Date and Time Co-Signed: 07/07/23 09:50 EST NUCLEAR STRESS TESTon 2023 NUCLEAR STRESS TEST Interpreted By: Inge Dickerson and Beal Gina STUDY: MYOCARDIAL PERFUSION STRESS TEST WITH LEXISCAN Performing facility: [facility], [address] [place] [address], [address] Provider: Sylvester Grayson DO, [facility] PCP: Dr. Agus STORM Supervising provider: Inge Dickerson MD INDICATION: HTN, Bilateral Carotid, Chest Pain HISTORY: Gender: M; Age: 77 y/o ; Height: HT 177.8 cm cm; Weight: WT 89.812 kg kg. 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 Cardiac catheterization. PTCA 1990s RCA. COMPARISON: No comparison. ACCESSION NUMBER(S): [id number] ORDERING CLINICIAN: CHAIM GRAYSON TECHNIQUE: ONE DAY [...] Inge Dickerson 06/19/2023 11:20 AM Dictation workstation: [id number] [facility] CNOVon 06-12-2023 CNOV Office Visit (SPSLU ) -- YESENIA BROUSSARD ([id number]) 1945 M Date Time Provider Department 06/12/23 11:00 AM KODI REYNOLDS [facility] During your visit today, we recorded the following information about you: Weight Height 88.9 kg 1.778 m Bert Alvarado 06/14/2023 4:36 PM Signed Pt has [...] heat Medications: See medication reconciliation list in [facility] MEDICATIONS: Hydrocodone, Gabapentin 2017 back surgery with [...] pleasant 77-year-old male who recently moved from [place] to [place]. He reports longstanding history of back and [...] suit/legal clai (more content not included)... Normal [facility] Alanine Aminotransferaseon 0 06-10-2023 ALT [Catalytic activity/Vol] 15 U/L Normal 7-52 [facility] Comment on above: Performed By: #### L IPID, AST, BMP, ALT ####[facility] [id number] [address] Aspartate Amino Transferaseo n 06-10-2023 AST [Catalytic activity/Vol] 15 U/L Normal 13-39 [facility] Comment on above: Performed By: #### L IPID, AST, BMP, ALT ####[facility] [id number] [address] Basic Metabolic Panelon 06-01 Anion gap [Moles/Vol] 11.2 mmol/L Normal 6.0-15.0 [facility] Comment on above: Performed By: #### L IPID, AST, BMP, ALT ####[place] [place] [address] [facility] Calcium [Mass/Vol] 9.3 mg/dL Normal 8.6-10.3 [facility] Comment on above: Performed By: #### L IPID, AST, BMP, ALT ####[address] [place] [address] [facility] Chloride [Moles/Vol] 108 mmol/L High 98-107 [facility] Comment on above: Performed By: #### L IPID, AST, BMP, ALT ####[place] [id number] [facility] CO2 [Moles/Vol] 25.4 mmol/L Normal 21.0-31.0 [facility] Comment on above: Performed By: #### L IPID, AST, BMP, ALT ####[place] [id number] [facility] Creatinine [Mass/Vol] 1.58 mg/dL High 0.70-1.30 [facility] Comment on above: Performed By: #### L IPID, AST, BMP, ALT ####[place] [address] [place] GFR/1.73 sq M.predicted MDRD (S/P/Bld) [Vol rate/Area] 44.772 mL/min/{1.73_m2} Normal [facility] Comment on above: Performed By: #### L IPID, AST, BMP, ALT ####[place] [id number] [facility] Glucose [Mass/Vol] 109 mg/dL High 70-100 [facility] Comment on above: Result Comment: [place] Glucose Reference Range is dependent on time and content of last meal. Glucose of more than 200 mg/dL in a nonstressed, ambulatory subject supports the diagnosis of Diabetes Mellitus. ADA recommended reference range Performed By: #### L IPID, AST, BMP, ALT ####[place] [id number] [place] Potassium [Moles/Vol] 4.6 mmol/L Normal 3.5-5.1 [facility] Comment on above: Performed By: #### L IPID, AST, BMP, ALT ####[address] Sodium [Moles/Vol] 140 mmol/L Normal 136-145 [facility] Comment on above: Performed By: #### L IPID, AST, BMP, ALT ####[address] Urea nitrogen [Mass/Vol] 23 mg/dL Normal 7-25 [facility] Comment on above: Performed By: #### L IPID, AST, BMP, ALT ####[address] Lipid Panelon 06-10-2023 Cholesterol [Mass/Vol] 139 mg/dL Low 140-200 [facility] Comment on above: Result Comment: Chol less than 200 mg/dl low risk Chol 201-239 mg/dl borderline risk Chol 240 mg/dl and greater high risk Performed By: #### L IPID, AST, BMP, ALT ####[address] Cholesterol in HDL [Mass/Vol] 36 mg/dL Normal 23-92 [facility] Comment on above: Result Comment: HDL CHOL ATP-III CLASSIFICATION Cardiovascular Risk HDL > or equal to 60 mg/dL LOW HDL < 40 mg/dL HIGH Performed By: #### L IPID, AST, BMP, ALT ####[address] Cholesterol.total/Chol esterol in HDL [Mass ratio] 3.9 {ratio} Normal <5.0 [facility] Comment on above: Result Comment: PERF ORMED BY: [facility] [address] [place] [address] PATHOLOGIST PLANNER CHIEF ANA HURT M.D. Performed By: #### L IPID, AST, BMP, ALT ####[address] LDL Cholesterol,Calculated 76 mg/dL Normal 0-100 [facility] Comment on above: Result Comment: LDL ATP III CLASSIFICATION LDL less than 100 mg/dL Optimal LDL 100-129 mg/dL Near or above optimal LDL 130-159 mg/dL Borderline high LDL 160-189 mg/dL High LDL greater than 189 mg/dL Very high Performed By: #### L IPID, AST, BMP, ALT ####[facility] [address] [place] [address] [facility] Triglyceride w/Reflex 134 mg/dL Normal 0-149 [facility] Comment on above: Result Comment: TRIG ATP III CLASSIFICATION TRIG less than 150 mg/dL Normal TRIG 150-199 mg/dL Borderline high TRIG 200-500 mg/dL High TRIG greater than 500 mg/dL Very high Standard traceable to the Center for Disease Conrtrol and Prevention (CDC) test method. Performed By: #### L IPID, AST, BMP, ALT ####[address] [place] [address] [facility] VLDL CHOLESTEROL 26 mg/dL Normal [facility] Comment on above: Performed By: #### L IPID, AST, BMP, ALT ####[facility] [place] [address] [facility] ECG 12 Leadon 06-04-2023 Sinus rhythm, right bundle branch block, left axis deviation, abnormal ECG [facility] Work Phone: Lab Reportson 05-26-2023 Lab Reports [id number]#1.00TIFF Normal [facility] ECG 12 lead ECGon 05-21-2023 ECG 12 lead ECG [facility] [address] [place] [address] [place] [address] Electrocardiograph Report Signed Patient: Yesenia Broussard MR#: [id number] : 1945 Acct:[id number] Age/Sex: 77 / M ADM Date: 05/21/23 Loc: Room: Type: [facility] Attending Dr: Shaikh Dotty MAK Ordering [...] undetermined Abnormal ECG Confirmed by DEANN MAK [id number] on 05/21/2023 5:04:18 PM Referred By: Electronically Signed By:BARBARA CASTELLANOS MD [facility] Transcribed By: MUS Signed By Chaim Castellanos MD 05/21/23 1704 [facility] 05-20-2023 CNPN Telephone (HEMASA) -- YESENIA BROUSSARD ([id number]) 1945 M Date Time Provider Department 05/20/23 CONSTANCE DURAND During your visit today, we recorded the following information about you: Constance Durand LSW 05/20/2023 3:13 PM Signed Patient Declined Social Work Assessment SOCIAL WORK FOLLOW UP NOTE: [facility] Date of service:05/20/23 TOPICS ADDRESSED: [employer] PRO report PLAN: Continue follow up as needed F/U APPOINTMENT: PRN Assigned SW listed in Care Team tab: Yes Patient appears on the [employer] PRO report for a PHQ-9 score of 11. Questionnaire was completed on 05/19/23. KAROLINE called and spoke with the Patient's Nena [...] Encounter Status:Closed by CONSTANCE DURAND on 05/20/23 [facility] CNOVon 05-19-2023 CNOV Office Visit (MIRELATSA ) -- YESENIA BROUSSARD ([id number]) 1945 M Date Time Provider Department 05/19/23 1:45 PM Genoveva NAZARIO During your visit today, we recorded the following information about you: Temperature Pulse Respiration Blood pressure 98.4 degrees 83/minute 16/minute 135/78 Weight 89.9 kg Diane Parada LPN 05/28/2023 3:05 PM Signed AUA= 12 Genoveva Nazario MD 05/28/2023 3:05 PM Signed Radiation Oncology - Follow Up Note PATIENT NAME: Yesenia Broussard PATIENT DIAGNOSIS: Prostate adenocarcinoma, initial PSA 9.95, biopsy Garrett score 3 + 4 = 7 (grade [...] ASSESSMENT/PLAN: Prostate adenocarcinoma, initial PSA 9.95, biopsy Garrett score 3 + 4 = 7 (grade [...] coordinate neurosurgical referral for patient. Signed by: Genoveva Nazario MD cc: Shaikh Dotty [facility] [place] [address] Allergies As of Date: 05/19/2023 (No Known Allergies) Date Reviewed: 05/19/2023 Reviewed by: Diane Parada LPN - Fully Assessed Reason for Visit: Prostate Cancer [590] Primary Visit Diagnosis:History of prostate cancer [Z85.46] Other Visit Diagnoses:Back pain, unspecified back location, unspecified back pain laterality, unspecified chronicity [M54.9] Lumbar radiculopathy [M54.16] Order(s):PSA/PROSTSPECAG DIAG [SQPSA] Order #: [id number] FUTURE CONSULT TO NEUROSURGERY [19990607] Order #: [id number]: 1 FUTURE Prescriptions as of 05/28/2023 - [...] a day. (more content not included)... Normal [facility] Rena 05-19-2023 [facility] YESENIA BROUSSARD ([id number]) 1945 M Date Time Provider Department 05/19/23 Genoveva NAZARIO During your visit today, we recorded the following information about you: Criselda Castle 05/19/2023 2:11 PM Signed Neelam when order is signed can you please send records to Dr Marvin at [facility] thank you! Facesheet in your box Diane Parada LPN 05/20/2023 9:10 [address] Mrs. Broussard called stating they contacted one of Dexter's previous physicians at [facility] spine clinic and he will arrange for Dexter to see [facility] neurosurgeon. Please cancel the referral to [facility] neurosurgeon per patient request. MEHNAZ Alexander Jennifer L 05/20/2023 9:15 AM Signed Criselda- records were not sent, so we shouldn't have to call and cancel. Allergies As of Date: 05/19/2023 (No Known Allergies) Date Reviewed: 05/19/2023 Reviewed by: Diane Parada LPN - Fully Assessed Reason for Visit: Appointment Confirmation [3505] Prescriptions as of 05/20/2023 - ergocalciferol, vitamin [...] Status:Closed by CRISELDA CASTLE on 05/20/23 Normal [facility] Lab Reportson 05-18-2023 Lab Reports [id number]#1.00TIFF Normal [facility] Lab Reports [id number]#1.00TIFF Normal [facility] Lab Reports [id number]#1.00TIFF Normal [facility] PSA Banneron 05-11-2023 Prostate specific Ag [Mass/Vol] 0.43 ng/mL Normal <2.60 [facility] Comment on above: Order Comment: Speci men Type: BLOOD SPECIMENOrdering Facility: [facility] Address: [address] [place] [address] Result Comment: Azael scott PSA test methodology used is the Electrochemiluminescence Immunoassay by [employer]. Total PSA values by differing methodologies cannot be interchanged. Performed By: #### 2 857-1 ####[facility] LABCLIA [id number] [address] [place] [address] [place] Physician Orderon 05-06-2023 Physician Order [id number]#1.00TIFF Normal [facility] C Urineon 04-25-2023 Bacteria identified Cx Nom (U) Microbiology PROCEDURE: Urine Culture [R1] SOURCE: U Random BODY SITE: COLLECTED DATE/TIME: 04/21/2023 09:29 EST RECEIVED DATE/TIME: 04/21/2023 17:59 EST START DATE/TIME: 04/21/2023 18:00 EST FREE TEXT SOURCE: CLAIRE JAMES PA-C, PA-C, CLAIRE Boswell FINAL REPORTS Final Report [] Verified Date/Time: [...] Locations R1: This test was performed at: [facility], [address] [place] [address], [facility]- , , [facility] Comment on above: Performed By: #### 2 [id number] ####[place] [address] [facility] 04-22-2023 Screens [id number]#1.00TIFF [facility] Screens [id number]#1.00TIFF [facility] Ambulatory Visit Summaryon 1 06-21-2022 Ambulatory Visit Summary YESENIA BROUSSARD :1945 Visit Date:04/21/2023 Ambulatory Visit Instructions Your Diagnosis Nocturia UTI symptoms Erectile dysfunction Prostate cancer BPH with urinary obstruction Tests Performed Urnls Dip Stick Auto w/o Microscopy POC 65086 Your Care Team Attending Physician - CLAIRE JAMES PA-C Primary Care Physician - DOTTY MAK, CARREON This Is Your Medications List oxybutynin (oxybutynin 5 mg Tab) Contact prescribing physician if questions or concerns acetaminophen-hydrocodone ([place] 5/325 Tab) amlodipine (amLODIPine 5 mg Tab) [...] CLAIRE JAMES PA-C Where: [facility] Patient Educationon 04-21-20 Patient Education Urology Erectile [...] these instructions at home: Medicines ? Take drdy-qnz-srjfmiz and prescription medicines only as told by [...] include cig (more content not included)... Normal [facility] Urology Office/Clinic Noteon 04-21-2023 Urology Office/Clinic Note [...] office.*No recent rad onc note found on [facility] or [facility] BPH *No BPH meds at this time* [...] -Begin desmopressin 0.05mg qhs. Rx sent to in [place]. -Check electrolytes in 1 wk after starting [...] -Begin Sildenafil 50mg prn. Rx sent to in [place]. 4. Prostate cancer (C61: Malignant neoplasm of [...] obstruction (N4 (more content not included)... Normal [facility] Comment on above: Result Comment: Elec tronically Signed By: CLAIRE JAMES PA-C\.br\Date and Time Signed: 04/21/23 09:33 EST\.br\Electronically Co-Signed By: Rosario Byrne\.br\Date and Time Co-Signed: 04/21/23 09:14 EST US ankle/arm indiceson 04-16 US ankle/arm indices [facility] [place] [address] Ultrasound Report Signed Patient: Yesenia Broussard MR#: [id number] : 1945 Acct:[id number] Age/Sex: 77 / M ADM Date: 04/16/23 Loc: [facility] Room: Type: [facility] Attending Dr: Jose Martin Mchugh MD Ordering Provider: Jose Martin Mchugh MD Date of Service: 04/16/23 US/US ankle/arm [...] Martin Mchugh MD04/16/2023 1:28 PM Dictation Location: [place] [address] Tech: Torrie Rossi Transcribed By: LUCY 04/16/231327 Dictated By: Jose Martin Mchugh MD 04/16/231326 Signed By: 04/16/231327 [facility] Blood Urea Nitrogenon 2022 Urea nitrogen [Mass/Vol] 35 mg/dL High 7-25 [facility] Comment on above: Performed By: #### B UN, CREAT ####[place] [place] [id number] [facility] Creatinineon 03-23-2023 Creatinine [Mass/Vol] 2.03 mg/dL High 0.70-1.30 [facility] Comment on above: Performed By: #### B UN, CREAT ####[address] [address] [facility] Creatinine Clr Calc Pharmacy 34.29 [facility] Comment on above: Result Comment: PERF ORMED BY: [facility] [address] [place] [id number] PATHOLOGIST PLANNER CHIEF ANA HURT M.D. Performed By: #### B UN, CREAT ####[address] [place] [address] [place] GFR/1.73 sq M.predicted MDRD (S/P/Bld) [Vol rate/Area] 33.144 mL/min/{1.73_m2} [facility] Comment on above: Performed By: #### B UN, CREAT ####[place] [id number] [place] Creatinine [Mass/volume] in Serum or PlasmaOrdered By: Jose Martin Mchugh on 03-23-2023 Creatinine [Mass/Vol] 2.03 mg/dL 0.70-1.30 [facility] No Panel InformationOrdered By: Jose Martin Mchugh on 03-23-2023 Estimated GFR (CKD-EPI) 33.144 mL/Min [facility] Creatinine Clearance (Chem 34.29 [facility] Urea nitrogen [Mass/volume] in Serum or PlasmaOrdered By: Jose Martin Mchugh on 03-23-2023 Urea nitrogen [Mass/Vol] 35 mg/dL 7 [facility] Albumin [Mass/volume] in Ser um or Plasma by Bromocresol green (BCG) dye binding methoOrdered By: Theo Thakkar on 03-09-2023 Albumin BCG dye [Mass/Vol] 4.1 g/dL 3.5-5.7 [facility] Automated erythrocytes count in urine sediment (number/area)Ordered By: Theo Thakkar on 03-09-2023 RBC Auto (Urine sed) [#/Area] 5-9 [HPF] 0-4 [facility] Automated leukocytes count i n urine sediment (number/area)Ordered By: Theo Thakkar on 03-09-2023 WBC Auto (Urine sed) [#/Area] Innumerable [HPF] 0-4 [facility] Bilirubin Test strip Ql (U)O rdered By: Theo Thakkar on 03-09-2023 Bilirubin Ql (U) Negative Negative [facility] Calcium [Mass/volume] in Ser um or PlasmaOrdered By: Theo Thakkar on 03-09-2023 Calcium [Mass/Vol] 9.3 mg/dL 8.6-10.3 [facility] Carbon dioxide, total [Moles /volume] in Serum or PlasmaOrdered By: Theo Thakkar on 03-09-2023 CO2 [Moles/Vol] 26.4 mmol/L 21.0-31.0 [facility] Chloride [Moles/volume] in S jaime or PlasmaOrdered By: Theo Thakkar on 03-09-2023 Chloride [Moles/Vol] 104 mmol/L 98-107 [facility] Color Auto (U)Ordered By: Ab bola Thakkar on 03-09-2023 Color (U) Yellow Yellow [facility] Creatinine [Mass/volume] in Serum or PlasmaOrdered By: Theo Thakkar on 03-09-2023 Creatinine [Mass/Vol] 1.83 mg/dL 0.70-1.30 [facility] Creatinine [Mass/volume] in UrineOrdered By: Theo Thakkar on 03-09-2023 Creatinine (U) [Mass/Vol] 162.0 mg/dL 14.0-26.0 [facility] Dipstick and Microscopicon 1 Appearance (U) Cloudy Critically abnormal Clear [facility] Comment on above: Order Comment: Reaso n for Exam Chronic kidney disease, stage III (moderate);Charly tyron hill w cr Name Collection Type:: Clean-Voided Midstream Performed By: #### C UU, RENAL, PTH, ADDONUAPLUS, [id number], URIC, PROCRERAT, MG #### [facility] [address] [place] [address] [place] Bacteria,Urine None Seen Normal None Seen [facility] Comment on above: Order Comment: Reaso n for Exam Chronic kidney disease, stage III (moderate);Charly hill w cr Name Collection Type:: Clean-Voided Midstream Performed By: #### C UU, RENAL, PTH, ADDONUAPLUS, [id number], URIC, PROCRERAT, MG #### [facility] [address] [place] [id number] [place] Bilirubin,Urine Negative Normal Negative [facility] Comment on above: Order Comment: Reaso n for Exam Chronic kidney disease, stage III (moderate);Charly tyron kid w cr Name Collection Type:: Clean-Voided Midstream Performed By: #### C UU, RENAL, PTH, ADDONUAPLUS, [id number], URIC, PROCRERAT, MG #### [facility] [address] [place] [id number] [place] Color (U) Yellow Normal Yellow [facility] Comment on above: Order Comment: Reaso n for Exam Chronic kidney disease, stage III (moderate);Charly tyron kid w cr Name Collection Type:: Clean-Voided Midstream Performed By: #### C UU, RENAL, PTH, ADDONUAPLUS, [id number], URIC, PROCRERAT, MG #### [facility] [address] [place] [address] Glucose Ql (U) Normal Normal Normal [facility] Comment on above: Order Comment: Reaso n for Exam Chronic kidney disease, stage III (moderate);Charly palma Name Collection Type:: Clean-Voided Midstream Performed By: #### C UU, RENAL, PTH, ADDONUAPLUS, [id number], URIC, PROCRERAT, MG #### [facility] [address] [place] [address] Hyaline Casts,Urine None Seen Normal 0-8 [facility] Comment on above: Order Comment: Reaso n for Exam Chronic kidney disease, stage III (moderate);Charly palma Name Collection Type:: Clean-Voided Midstream Result Comment: PERF ORMED BY: [place] [address] PATHOLOGIST PLANNER CHIEF ANA HURT M.D. Performed By: #### C UU, RENAL, PTH, ADDONUAPLUS, [id number], URIC, PROCRERAT, MG #### [facility] [address] [place] [address] Ketones Ql (U) Negative Normal Negative [facility] Comment on above: Order Comment: Reaso n for Exam Chronic kidney disease, stage III (moderate);Charly palomo cr Name Collection Type:: Clean-Voided Midstream Performed By: #### C UU, RENAL, PTH, ADDONUAPLUS, [id number], URIC, PROCRERAT, MG #### [facility] [address] [place] [address] Leukocyte esterase Test strip Ql (U) 4+ High Negative [facility] Comment on above: Order Comment: Reaso n for Exam Chronic kidney disease, stage III (moderate);Charly palomo cr Name Collection Type:: Clean-Voided Midstream Performed By: #### C UU, RENAL, PTH, ADDONUAPLUS, [id number], URIC, PROCRERAT, MG #### [facility] [address] Nitrite,Urine Negative Normal Negative [facility] Comment on above: Order Comment: Reaso n for Exam Chronic kidney disease, stage III (moderate);Charly palomo cr Name Collection Type:: Clean-Voided Midstream Performed By: #### C UU, RENAL, PTH, ADDONUAPLUS, [id number], URIC, PROCRERAT, MG #### [address] Occult Blood,Urine 1+ High Negative [facility] Comment on above: Order Comment: Reaso n for Exam Chronic kidney disease, stage III (moderate);Charly palomo cr Name Collection Type:: Clean-Voided Midstream Performed By: #### C UU, RENAL, PTH, ADDONUAPLUS, [id number], URIC, PROCRERAT, MG #### [address] pH (U) 5.5 [pH] Normal 5.0-9.0 [facility] Comment on above: Order Comment: Reaso n for Exam Chronic kidney disease, stage III (moderate);Charly palomo cr Name Collection Type:: Clean-Voided Midstream Performed By: #### C UU, RENAL, PTH, ADDONUAPLUS, [id number], URIC, PROCRERAT, MG #### [address] Protein (U) [Mass/Vol] 100 mg/dL High Negative [facility] Comment on above: Order Comment: Reaso n for Exam Chronic kidney disease, stage III (moderate);Charly palomo cr Name Collection Type:: Clean-Voided Midstream Performed By: #### C UU, RENAL, PTH, ADDONUAPLUS, [id number], URIC, PROCRERAT, MG #### [address] RBC,Urine 5-9 High 0-4 [facility] Comment on above: Order Comment: Reaso n for Exam Chronic kidney disease, stage III (moderate);Charly palomo cr Name Collection Type:: Clean-Voided Midstream Performed By: #### C UU, RENAL, PTH, ADDONUAPLUS, [id number], URIC, PROCRERAT, MG #### [facility] [address] [place] [address] Specificy [place],Urine 1.018 Normal 1.001-1.03 0 [facility] Comment on above: Order Comment: Reaso n for Exam Chronic kidney disease, stage III (moderate);Charly palomo cr Name Collection Type:: Clean-Voided Midstream Performed By: #### C UU, RENAL, PTH, ADDONUAPLUS, [id number], URIC, PROCRERAT, MG #### [facility] [address] [place] [address] Squamous Epithelial Cell,Urine None Seen Normal 0-2 [facility] Comment on above: Order Comment: Reaso n for Exam Chronic kidney disease, stage III (moderate);Charly palomo cr Name Collection Type:: Clean-Voided Midstream Performed By: #### C UU, RENAL, PTH, ADDONUAPLUS, [id number], URIC, PROCRERAT, MG #### [facility] [address] [place] [address] Urobilinogen,Urine Normal Normal Normal [facility] Comment on above: Order Comment: Reaso n for Exam Chronic kidney disease, stage III (moderate);Charly palomo cr Name Collection Type:: Clean-Voided Midstream Performed By: #### C UU, RENAL, PTH, ADDONUAPLUS, [id number], URIC, PROCRERAT, MG #### [facility] [address] [place] [address] WBC,Urine Innumerable High 0-4 [facility] Comment on above: Order Comment: Reaso n for Exam Chronic kidney disease, stage III (moderate);Charly palomo cr Name Collection Type:: Clean-Voided Midstream Performed By: #### C UU, RENAL, PTH, ADDONUAPLUS, [id number], URIC, PROCRERAT, MG #### [facility] [address] [place] [id number] [facility] Glucose [Mass/volume] in Ser um or PlasmaOrdered By: Theo Thakkar on 03-09-2023 Glucose [Mass/Vol] 126 mg/dL 70-100 [facility] Comment on above: ADA recommended refe rence rangeRandom Glucose Reference Range is dependent on time and content of last meal. Glucose of more than 200 mg/dL in a nonstressed, ambulatory subject supports the diagnosis of Diabetes Mellitus. Ketones Auto test strip (U) [Mass/Vol]Ordered By: Theo Thakkar on 03-09-2023 Ketones (U) [Mass/Vol] Negative Negative [facility] Laboratory - UrinalysisOrder ed By: Theo Thakkar on 03-09-2023 Hyaline casts LM Ql (Urine sed) None seen [LPF] 0-8 [facility] Magnesiumon 03-09-2023 Magnesium [Mass/Vol] 2.2 mg/dL Normal 1.9-2.7 [facility] Comment on above: Order Comment: Reaso n for Exam Chronic kidney disease, stage III (moderate);Charly hy kid w cr Performed By: #### C UU, RENAL, PTH, ADDONUAPLUS, [id number], URIC, PROCRERAT, MG #### [facility] [address] [id number] [facility] Magnesium [Mass/volume] in S jaime or PlasmaOrdered By: Theo Thakkar on 03-09-2023 Magnesium [Mass/Vol] 2.2 mg/dL 1.9-2.7 [facility] Nitrite Test strip Ql (U)Ord ered By: Theo Thakkar on 03-09-2023 Nitrite Ql (U) Negative Negative [facility] No Panel InformationOrdered By: Theo Thakkar on 03-09-2023 Estimated GFR (CKD-EPI) 37.537 mL/Min [facility] Creatinine Clearance (Chem N/A [facility] Parathyrin.intact [Mass/volu me] in Serum or PlasmaOrdered By: Theo Thakkar on 03-09-2023 Parathyrin.intact [Mass/Vol] 128.0 pg/mL [facility] Parathyroid Hormone Intacton 03-09-2023 Parathyroid Hormone Intact 128.0 pg/mL High [facility] Comment on above: Order Comment: Reaso n for Exam Chronic kidney disease, stage III (moderate);Charly hy kid w cr Result Comment: PERF ORMED BY: [place] [address] PATHOLOGIST PLANNER CHIEF ANA HURT M.D. Performed By: #### C UU, RENAL, PTH, ADDONUAPLUS, [id number], URIC, PROCRERAT, MG #### [facility] [address] [place] [address] [place] Phosphate [Mass/volume] in S jaime or PlasmaOrdered By: Theo Thakkar on 03-09-2023 Phosphate [Mass/Vol] 4.1 mg/dL 3.7-7.2 [facility] Potassium [Moles/volume] in Serum or PlasmaOrdered By: Theo Thakkar on 03-09-2023 Potassium [Moles/Vol] 4.7 mmol/L 3.5-5.1 [facility] Protein Auto test strip (U) [Mass/Vol]Ordered By: Theo Thakkar on 03-09-2023 Protein (U) [Mass/Vol] 100 mg/dL Negative [facility] Protein Creat Ratio Ur Rando mon 03-09-2023 Creatinine, Urine (Random) 162.0 mg/dL High 14.0-26.0 [facility] Comment on above: Order Comment: Reaso n for Exam Chronic kidney disease, stage III (moderate);Charly hy kid w cr Performed By: #### C UU, RENAL, PTH, ADDONUAPLUS, [id number], URIC, PROCRERAT, MG #### [facility] [address] [place] [address] [place] Protein (U) [Mass/Vol] 104 mg/dL High 0-9 [facility] Comment on above: Order Comment: Reaso n for Exam Chronic kidney disease, stage III (moderate);Charly hy kid w cr Performed By: #### C UU, RENAL, PTH, ADDONUAPLUS, [id number], URIC, PROCRERAT, MG #### [facility] [address] Urine Protein/Creatinine Ratio 642 mg/g{Cre} High 0-200 [facility] Comment on above: Order Comment: Reaso n for Exam Chronic kidney disease, stage III (moderate);Charly hy kid w cr Result Comment: PERF ORMED BY: [place] [address] PATHOLOGIST PLANNER CHIEF ANA HURT M.D. Performed By: #### C UU, RENAL, PTH, ADDONUAPLUS, [id number], URIC, PROCRERAT, MG #### [facility] [address] Protein [Mass/volume] in Uri neOrdered By: Theo Thakkar on 03-09-2023 Protein (U) [Mass/Vol] 104 mg/dL 0-9 [facility] Renal Function Panelon 03-09 Albumin [Mass/Vol] 4.1 g/dL Normal 3.5-5.7 [facility] Comment on above: Order Comment: Reaso n for Exam Chronic kidney disease, stage III (moderate);Charly hy kid w cr Performed By: #### C UU, RENAL, PTH, ADDONUAPLUS, [id number], URIC, PROCRERAT, MG #### [facility] [address] [place] [address] Anion gap [Moles/Vol] 10.3 mmol/L Normal 6.0-15.0 [facility] Comment on above: Order Comment: Reaso n for Exam Chronic kidney disease, stage III (moderate);Charly hy kid w cr Performed By: #### C UU, RENAL, PTH, ADDONUAPLUS, [id number], URIC, PROCRERAT, MG #### [facility] [address] [id number] [facility] Calcium [Mass/Vol] 9.3 mg/dL Normal 8.6-10.3 [facility] Comment on above: Order Comment: Reaso n for Exam Chronic kidney disease, stage III (moderate);Charly hy kid w cr Performed By: #### C UU, RENAL, PTH, ADDONUAPLUS, [id number], URIC, PROCRERAT, MG #### [facility] [address] [id number] [facility] Chloride [Moles/Vol] 104 mmol/L Normal 98-107 [facility] Comment on above: Order Comment: Reaso n for Exam Chronic kidney disease, stage III (moderate);Charly hy kid w cr Performed By: #### C UU, RENAL, PTH, ADDONUAPLUS, [id number], URIC, PROCRERAT, MG #### [facility] [address] [id number] [facility] CO2 [Moles/Vol] 26.4 mmol/L Normal 21.0-31.0 [facility] Comment on above: Order Comment: Reaso n for Exam Chronic kidney disease, stage III (moderate);Charly hy kid w cr Performed By: #### C UU, RENAL, PTH, ADDONUAPLUS, [id number], URIC, PROCRERAT, MG #### [facility] [address] [place] [address] Creatinine [Mass/Vol] 1.83 mg/dL High 0.70-1.30 [facility] Comment on above: Order Comment: Reaso n for Exam Chronic kidney disease, stage III (moderate);Charly hy kid w cr Performed By: #### C UU, RENAL, PTH, ADDONUAPLUS, [id number], URIC, PROCRERAT, MG #### [facility] [address] [place] [address] [place] GFR/1.73 sq M.predicted MDRD (S/P/Bld) [Vol rate/Area] 37.537 mL/min/{1.73_m2} Normal [facility] Comment on above: Order Comment: Reaso n for Exam Chronic kidney disease, stage III (moderate);Charly hy kid w cr Performed By: #### C UU, RENAL, PTH, ADDONUAPLUS, [id number], URIC, PROCRERAT, MG #### [facility] [address] [id number] [facility] Glucose [Mass/Vol] 126 mg/dL High 70-100 [facility] Comment on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 ####[facility] [address] [place] [address] [facility] LDL Cholesterol,Calculated 115 mg/dL High 0-100 [facility] Comment on above: Order Comment: PT FA STED 12 HOURS Result Comment: LDL ATP III CLASSIFICATION LDL less than 100 mg/dL Optimal LDL 100-129 mg/dL Near or above optimal LDL 130-159 mg/dL Borderline high LDL 160-189 mg/dL High LDL greater than 189 mg/dL Very high Performed By: #### L IPID, CBC ####[facility] [address] Triglyceride w/Reflex 162 mg/dL High 0-149 [facility] Comment on above: Order Comment: PT FA STED 12 HOURS Result Comment: TRIG ATP III CLASSIFICATION TRIG less than 150 mg/dL Normal TRIG 150-199 mg/dL Borderline high TRIG 200-500 mg/dL High TRIG greater than 500 mg/dL Very high Standard traceable to the Center for Disease Conrtrol and Prevention (CDC) test method. Performed By: #### L IPID, CBC ####[facility] [address] VLDL CHOLESTEROL 32 mg/dL Normal [facility] Comment on above: Order Comment: PT FA STED 12 HOURS Performed By: #### L IPID, CBC ####[facility] [address] Lymphocytes Auto (Bld) [#/Vo l]Ordered By: Shaikh Dotty on 01-09-2023 Lymphocytes (Bld) [#/Vol] 1.1 10*3/uL 1.00-4.8 [facility] Lymphocytes/100 WBC Auto (Bl d)Ordered By: Shaikh Dotty on 01-09-2023 Lymphocytes/100 WBC (Bld) 19.3 % . [facility] MCH Auto (RBC) [Entitic mass ]Ordered By: Shaikh Dotty on 01-09-2023 MCH (RBC) [Entitic mass] 30.0 pg 27.5-35.2 [facility] MCHC Auto (RBC) [Mass/Vol]Or dered By: Shaikh Dotty on 01-09-2023 MCHC (RBC) [Mass/Vol] 32.9 g/dL 32.5-35.6 [facility] MCV Auto (RBC) [Entitic vol] Ordered By: Shaikh Dotty on 01-09-2023 MCV (RBC) [Entitic vol] 91.2 fL 83.5-101 [facility] Monocytes Auto (Bld) [#/Vol] Ordered By: Shaikh Dotty on 01-09-2023 Monocytes (Bld) [#/Vol] 0.5 10*3/uL 0.0-0.8 [facility] Monocytes/100 WBC Auto (Bld) Ordered By: Shaikh Dotty on 01-09-2023 Monocytes/100 WBC (Bld) 8.7 % . [facility] Neutrophils Auto (Bld) [#/Vo l]Ordered By: Shaikh Dotty on 01-09-2023 Neutrophils (Bld) [#/Vol] 3.8 10*3/uL 1.8-7.7 [facility] Neutrophils/100 WBC Auto (Bl d)Ordered By: Shaikh Dotty on 01-09-2023 Neutrophils/100 WBC (Bld) 67.6 % . [facility] No Panel InformationOrdered By: Shaikh Dotty on 01-09-2023 Estimated GFR (CKD-EPI) 38.289 mL/Min [facility] Creatinine Clearance (Chem N/A [facility] Nucleated erythrocytes [Pres ence] in Blood by Automated countOrdered By: Shaikh Dotty on 01-09-2023 Nucleated RBC Auto Ql (Bld) 0.1 /100{WBC} 0-0.5 [facility] Platelet mean volume Auto (B ld) [Entitic vol]Ordered By: Shaikh Dotty on 01-09-2023 Platelet mean volume (Bld) [Entitic vol] 9.7 fL 6.6-10.1 [facility] Platelets Auto (Bld) [#/Vol] Ordered By: Shaikh Dotty on 01-09-2023 Platelets (Bld) [#/Vol] 173 10*3/uL 150-450 [facility] Potassium [Moles/volume] in Serum or PlasmaOrdered By: Shaikh Dotty on 01-09-2023 Potassium [Moles/Vol] 4.9 mmol/L 3.5-5.1 [facility] Protein [Mass/volume] in Ser um or PlasmaOrdered By: Shaikh Dotty on 01-09-2023 Protein [Mass/Vol] 6.9 g/dL 6.4-8.9 [facility] RBC Auto (Bld) [#/Vol]Ordere d By: Shaikh Dotty on 01-09-2023 RBC (Bld) [#/Vol] 4.42 10*6/uL 3.90-5.60 [facility] Serum or plasma albumin/glob ulin mass ratioOrdered By: Shaikh Dotty on 01-09-2023 Albumin/Globulin [Mass ratio] 1.6 {ratio} [facility] Serum or plasma anion gap de terminationOrdered By: Shaikh Dotty on 01-09-2023 Anion gap [Moles/Vol] 9.8 mmol/L 6.0-15.0 [facility] Serum or plasma high density lipoprotein (HDL) cholesterol measurementOrdered By: Shaikh Dotty on 01-09-2023 Cholesterol in HDL [Mass/Vol] 31 mg/dL 23-92 [facility] Comment on above: HDL CHOL ATP-III CLA SSIFICATION Cardiovascular RiskHDL > or equal to 60 mg/dL LOWHDL < 40 mg/dL HIGH Serum or plasma total choles terol/high density lipoprotein (HDL) cholesterol mass ratOrdered By: Shaikh Dotty on 01-09-2023 Cholesterol.total/Chol esterol in HDL [Mass ratio] 5.7 {ratio} <5.0 [facility] Sodium [Moles/volume] in Ser um or PlasmaOrdered By: Shaikh Dotty on 01-09-2023 Sodium [Moles/Vol] 140 mmol/L 136-145 [facility] Triglyceride [Mass/volume] i n Serum or PlasmaOrdered By: Shaikh Dotty on 01-09-2023 Triglyceride [Mass/Vol] 162 mg/dL 0-149 [facility] Comment on above: TRIG ATP III CLASSIF ICATIONTRIG less than 150 mg/dL NormalTRIG 150-199 mg/dL Borderline highTRIG 200-500 mg/dL High TRIG greater than 500 mg/dL Very highStandard traceable to the Center for Disease Conrtrol and Prevention (CDC) test method. Urea nitrogen [Mass/volume] in Serum or PlasmaOrdered By: Shaikh Dotty on 01-09-2023 Urea nitrogen [Mass/Vol] 34 mg/dL 7- [facility] WBC Auto (Bld) [#/Vol]Ordere d By: Shaikh Dotty on 01-09-2023 WBC (Bld) [#/Vol] 5.6 10*3/uL 4.1-10.5 [facility] CNPNon 01-06-2023 CNPN Telephone (RADTSA) -- YESENIA BROUSSARD ([id number]) 1945 M Date Time Provider Department 01/06/23 Genoveva NAZARIO During your visit today, we recorded the following information about you: Livier Barrera RN 01/06/2023 8:17 AM Signed Please sign pended new order for Lumbar Spine MRI as it needs to state that it needs to be done with anesthesia. Thank you Livier Barrera RN Allergies As of Date: 01/06/2023 (No Known Allergies) Date Reviewed: 11/19/2022 Reviewed by: Bhumika Betts, KEMI.CARE TECHNICIAN - Fully Assessed Reason for Visit: Orders [681] Primary Visit Diagnosis:Spinal stenosis of lumbar region, unspecified whether neurogenic claudication present [M48.061] Order(s):MRI LUMBAR SPINE WO/W IVCON [[id number]] Order #: [id number] FUTURE iv contrast (will be provided with [...] contrast administration guidelines link. Encounter Status:Closed by Genoveva [facility]23 [facility] (IRRFV[facility] -- BOBOYESENIA ([id number]) 1945 M Date Time Provider Department 01/05/23 EVELYN CHAMBERLAIN IRRFV During your visit today, we recorded the following information about you: Evelyn Chamberlain, RN 01/05/2023 5:05 PM Signed Spoke to patient's . Explained differences between anxiolysis and full anesthesia. Per patient's , patient needs full anesthesia-will not tolerate procedure with anxiolysis alone. Communicated to office that new order needs to be placed for MRI with anesthesia, and will need to be scheduled at [facility]. Allergies As of Date: 01/05/2023 (No Known Allergies) Date Reviewed: 11/19/2022 Reviewed by: Bhumika Betts APRN.CARE TECHNICIAN - Fully Assessed Reason for Visit: Patient Question [1487] Appointment [186] Prescriptions as of 01/05/2023 - [...] Encounter Status:Closed by EVELYN CHAMBERLAIN on 01/05/23 [facility] Consultation Noteon 12-11-19 Consultation Note [id number]#[id number]:127 [facility] Lab Reportson 12-10-2022 Lab Reports [id number]#1.00CD:127 [facility] Screenson 12-04-2022 Screens [id number]#1.00CD:127 [facility] Screens [id number]#1.00CD:127 [facility] Ambulatory Visit Summaryon 0 12-03-2022 Ambulatory Visit Summary YESENIA BROUSSARD :1945 Visit Date:12/03/2022 Ambulatory Visit Instructions Your Diagnosis Recurrent UTI Prostate cancer BPH with urinary obstruction Nocturia Your Care Team Attending Physician - CLAIRE JAMES PA-C Primary Care Physician - SHAIKH STORM This Is Your Medications List Contact prescribing physician if questions or concerns acetaminophen-hydrocodone ([place] 5/325 Tab) amlodipine (amLODIPine 5 mg Tab) [...] CLAIRE JAMES PA-C Where: [facility] [place] Normal [facility] Patient Educationon 12-04-19 23 Patient Education Urology Urinary Frequency, Adult Urinary [...] keep your urine pale yellow. ? Take dnzh-lsi-dhvfxwe or prescription medicines. ? Eat foods that are high in fiber, such as beans, whole grains, and fresh fruits and vegetables. ? Limit foods that are high in fat and processed sugars, such as fried or sweet foods. General instructions ? Take lzcp-wrv-eturytb and prescription medicines only as told by [...] muscles that help control urination. ? Take ltip-qbs-achwvnn and prescription medicines only as told by your health care provider. ? Contact a health care provider if your symptoms do not improve or get worse. This information is not intended to replace advice given to you by your health care provider. Make sure you discuss any questions you have with your health care provider. Document Revised: 12/21/2020 Document Reviewed: 12/21/2020 [employer] Patient Education ? 2022 [employer]. Normal [facility] Urology Office/Clinic Noteon 12-03-2022 Urology Office/Clinic Note [...] Bedtime, # 30 tab(s), Refills(s) 2, Pharmacy: [facility], 178, cm, 12/03/22 15:00:00 EDT, Height/Length Dosing, 93, kg, 12/03/22 15:00:00 EDT, Weight Dosing Measure Post Void residual urine and/or bladder capacity by US- non-imaging [id number] Follow-up With When Contact Information BRITNI ENCINAS, CLAIRE Boswell, URL In 5 weeks [address] [place] [address] Additional Instructions: Patient Education Urinary Frequency, Adult [...] prostatitis Feel (more content not included)... Normal [facility] Comment on above: Result Comment: Elec tronically Signed By: CLAIRE JAMES PA-C\.br\Date and Time Signed: 12/03/22 16:29 EDT\.br\Electronically Co-Signed By: [address].br\Date and Time Co-Signed: 12/03/22 15:37 EDT CNOVon 11-18-2022 CNOV Office Visit (RADTSA ) -- YESENIA BROUSSARD ([id number]) 1945 M Date Time Provider Department 11/18/22 1:15 PM Genoveva NAZARIO During your visit today, we recorded the following information about you: Temperature Pulse Respiration Blood pressure 98.7 degrees 56/minute 18/minute 112/54 Weight 92.5 kg Genoveva Nazario MD 11/19/2022 9:23 AM Signed Radiation [...] and repeat MRI order placed. 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 Normal [facility] CNOVSPon 11-18-2022 CNOVSP Visit (SP) Office (H EMASA) -- BOBOYESENIA Timmy ([id number]) 1945 M Date Time Provider Department 11/18/22 1:30 PM BHUMIKA BETTS During your visit today, we recorded the following information about you: Nadja Guardado 11/18/2022 2:34 PM Signed Clinical questionnaires incomplete due to Patient was roomed by provider Bhumika Betts APRN.CARE TECHNICIAN 11/19/2022 12:26 PM Signed Yesenia Broussard was [...] care plan for prostate cancer. Bhumika Betts APRN.CARE TECHNICIAN Allergies As of Date: 11/18/2022 (No Known [...] Encounter Status:Closed by BHUMIKA BETTS on 11/19/22 [facility] 11-18-2022 [facility] -- YESENIA BROUSSARD ([id number]) 1945 M Date Time Provider Department 11/18/22 Genoveva NAZARIO During your visit today, we recorded the following information about you: Kadi Cotton 11/18/2022 2:21 PM Signed Per [facility], a more recent MRI is required before scheduling the patient to be seen. They are requesting new MRI orders to be placed before completing consult. Kadi Cotton 11/19/2022 9:38 AM Signed Contacted patient to schedule MRI AND was informed by that patient is extremely claustrophobic AND needs sedation in order for MRI to be completed. This can only be completed at [facility] Main AND orders must be revised [...] claudication [M48.061] Order(s):MRI LUMBAR SPINE WO/W IVCON [[id number]] Order #: [id number] FUTURE iv contrast (will be provided with [...] contrast administration guidelines link. Encounter Status:Closed by Genoveva NAZARIO on 11/21/22 Normal [facility] PSA SerPl-mCncon 11-17-2022 Prostate specific Ag [Mass/Vol] 0.50 ng/mL Normal <2.60 [facility] Comment on above: Order Comment: Speci men Type: BLOOD SPECIMENOrdering Facility: [facility] Address: [address] [place] [address] Result Comment: Azael tyler PSA test methodology used is the Electrochemiluminescence Immunoassay by [employer]. Total PSA values by differing methodologies cannot be interchanged. Performed By: #### 2 857-1 ####[facility] LABCLIA [id number] [place] [address] [place] Lab Reportson 10-29-2022 Lab Reports [id number]#1.00CD:127 Normal [facility] CULTURE URINEon 10-28-2022 CULTURE URINE Culture Observations : LIGHT GROWTH OF MIXED SKIN DANIELLE. NO POTENTIAL PATHOGENS SEEN. Normal [facility] Comment on above: Performed By: #### U RCX #### [facility] [address] [place] [address] Dr. Leighann Chase 06-10-2022 [place] Telephone (HEMASA) -- YESENIA BROUSSARD ([id number]) 1945 M Date Time Provider Department 06/10/22 [...] and Continue follow up as needed Assigned SW listed in Care Team tab: Yes Patient's Nena called in with questions about a bill received from [facility]. Nena called the Customer Service line, but waited on hold with no assistance. KAROLINE contacted ONELIA Bhandari with this request. SW will remain available and will follow up as appropriate. ASHER Lange-S Allergies As of Date: 06/10/2022 (No Known [...] Encounter Status:Closed by CONSTANCE DURAND on 06/10/22 [facility] 06-06-2022 CNPN Telephone (HEMASA) -- YESENIA BROUSSARD ([id number]) 1945 M Date Time Provider Department 06/06/22 [...] Status:Closed by CONSTANCE DURAND on 06/09/22 Normal [facility] Bacteria Ur Culton 3 Bacteria identified Cx Nom (U) ORGANISM ID: 1 <10,000 CFU/ml Mixed microbiota No further workup. Mixed microbiota can be due to???urine???contamination with skin bacteria at time of collection or presence of a long-term urinary catheter. If a new culture is needed, please consider re-education of the patient on proper midstream collection technique or straight catheterization for???urine???collection. Normal [facility] Comment on above: Performed By: #### 6 30-4 ####[facility] LABCLIA [id number] [address] CNOVon 06-05-2022 CNOV Office Visit (RADTSA ) -- YESENIA BROUSSARD ([id number]) 1945 M Date Time Provider Department 06/05/22 1:00 PM LAB/PORT RADT EVITA RADTSA During your visit today, we recorded the following information about you: Kelly Hector 06/05/2022 12:41 PM Signed Back office UA test performed. Results entered in Ganos and doctor notified. Kelly Hector MA Allergies [...] 06/05/2022 (None) Visit Notes: >> Kelly Hector [facility] Jun 05, 2022 12:40 PM Status: Signed Back office UA test performed. Results entered in Ganos and doctor notified. Kelly Hector MA Encounter Status:Closed by KELLY HECTOR on 06/05/22 Normal [facility] No Panel InformationOrdered By: Genoveva Nazario on 05-09-2022 Prostate Specific Antigen Total 2.810 ng/mL 0.000-4.00 0 [facility] Basophils Auto (Bld) [#/Vol] Ordered By: Zeinab Justice on 04-23-2022 Basophils (Bld) [#/Vol] 0.0 10*3/uL 0.0-0.2 [facility] Basophils/100 WBC Auto (Bld) Ordered By: Zeinab Justice on 04-23-2022 Basophils/100 WBC (Bld) 0.5 % . [facility] Body fluid albumin measureme nt (mass/volume)Ordered By: Zeinab Justice on 04-23-2022 Albumin (Body fld) [Mass/Vol] 3.6 g/dL 3.2-5.5 [facility] Creatinine and Glomerular fi ltration rate.predicted panel (S/P/Bld)Ordered By: Zeinab Justice on 04-23-2022 Creatinine [Mass/Vol] 1.65 mg/dL 0.64-1.27 [facility] Eosinophils Auto (Bld) [#/Vo l]Ordered By: Zeinab Justice on 04-23-2022 Eosinophils (Bld) [#/Vol] 0.2 10*3/uL 0.0-0.45 [facility] Eosinophils/100 WBC Auto (Bl d)Ordered By: Zeinab Justice on 04-23-2022 Eosinophils/100 WBC (Bld) 3.4 % . [facility] Erythrocyte distribution wid th Auto (RBC) [Ratio]Ordered By: Zeinab Justice on 04-23-2022 Erythrocyte distribution width (RBC) [Ratio] 15.0 % 12.0-14.8 [facility] Estimated glomerular filtrat ion rate (GFR) non- AmericanOrdered By: Zeinab Justice on 04-23-2022 GFR/1.73 sq M.predicted among non-blacks MDRD (S/P/Bld) [Vol rate/Area] 41 mL/Min [facility] Globulin Calc (S) [Mass/Vol] Ordered By: Zeinab Justice on 04-23-2022 Globulin (S) [Mass/Vol] 2.6 g/dL [facility] Hematocrit Auto (Bld) [Volum e fraction]Ordered By: Zeinab Justice on 04-23-2022 Hematocrit (Bld) [Volume fraction] 38.0 % 38.8-50.0 [facility] Hemoglobin [Mass/volume] in BloodOrdered By: Zeinab Justice on 04-23-2022 Hemoglobin (Bld) [Mass/Vol] 12.3 g/dL 13.0-17.0 [facility] Laboratory - Hematology and Cell countsOrdered By: Zeinab Justice on 04-23-2022 Nucleated RBC/100 WBC (Bld) [Ratio] 0.2 % 0-0.5 [facility] Leukocytes [#/volume] in Blo od by Automated countOrdered By: Zeinab Justice on 04-23-2022 WBC (Bld) [#/Vol] 5.3 10*3/uL 4.5-11.0 [facility] Lymphocytes Auto (Bld) [#/Vo l]Ordered By: Zeinab Justice on 04-23-2022 Lymphocytes (Bld) [#/Vol] 0.9 10*3/uL 1.00-4.8 [facility] Lymphocytes/100 WBC Auto (Bl d)Ordered By: Zeinab Justice on 04-23-2022 Lymphocytes/100 WBC (Bld) 17.1 % . [facility] MCH Auto (RBC) [Entitic mass ]Ordered By: Zeinab Justice on 04-23-2022 MCH (RBC) [Entitic mass] 30.6 pg 27.5-35.2 [facility] MCHC Auto (RBC) [Mass/Vol]Or dered By: Zeinab Justice on 04-23-2022 MCHC (RBC) [Mass/Vol] 32.4 g/dL 32.5-35.6 [facility] MCV Auto (RBC) [Entitic vol] Ordered By: Zeinab Justice on 04-23-2022 MCV (RBC) [Entitic vol] 94.4 fL 83.5-101 [facility] Monocytes Auto (Bld) [#/Vol] Ordered By: Zeinab Justice on 04-23-2022 Monocytes (Bld) [#/Vol] 0.6 10*3/uL 0.0-0.8 [facility] Monocytes/100 WBC Auto (Bld) Ordered By: Zeinab Justice on 04-23-2022 Monocytes/100 WBC (Bld) 10.5 % . [facility] Neutrophils Auto (Bld) [#/Vo l]Ordered By: Zeinab Justice on 04-23-2022 Neutrophils (Bld) [#/Vol] 3.6 10*3/uL 1.8-7.7 [facility] Neutrophils/100 WBC Auto (Bl d)Ordered By: Zeinab Justice on 04-23-2022 Neutrophils/100 WBC (Bld) 68.5 % . [facility] No Panel InformationOrdered By: Zeinab Justice on 04-23-2022 Estimated GFR () 49 mL/Min [facility] Comment on above: GFR estimated refere nce range: According to KDOQI guidelines, <60 ml/min/1.73m2 is sufficient to diagnose a patient with chronic kidney disease. Pharmacy Creatinine Clearance (Chem N/A [facility] Platelet mean volume Auto (B ld) [Entitic vol]Ordered By: Zeinab Justice on 04-23-2022 Platelet mean volume (Bld) [Entitic vol] 9.7 fL 6.6-10.1 [facility] Platelets Auto (Bld) [#/Vol] Ordered By: Zeinab Justice on 04-23-2022 Platelets (Bld) [#/Vol] 170 10*3/uL 150-450 [facility] Protein [Mass/volume] in Ser um or PlasmaOrdered By: Zeinab Justice on 04-23-2022 Protein [Mass/Vol] 6.2 g/dL 6.1-7.9 [facility] RBC Auto (Bld) [#/Vol]Ordere d By: Zeinab Justice on 04-23-2022 RBC (Bld) [#/Vol] 4.02 10*6/uL 3.90-5.60 [facility] Serum or plasma alanine cadet otransferase measurement without P-5'-P (enzymatic activiOrdered By: Zeinab Justice on 04-23-2022 ALT No additional P-5'-P [Catalytic activity/Vol] 19 U/L 10-60 [facility] Serum or plasma albumin/glob ulin mass ratioOrdered By: Zeinab Justice on 04-23-2022 Albumin/Globulin [Mass ratio] 1.4 {ratio} [facility] Serum or plasma alkaline crispin sphatase measurement (enzymatic activity/volume)Ordered By: Zeinab Justice on 04-23-2022 ALP [Catalytic activity/Vol] 51 U/L 32-92 [facility] Serum or plasma anion gap de terminationOrdered By: Zeinab Justice on 04-23-2022 Anion gap [Moles/Vol] 13.2 mmol/L 6.0-15.0 [facility] Serum or plasma aspartate am inotransferase measurement (enzymatic activity/volume)Ordered By: Zeinab Justice on 04-23-2022 AST [Catalytic activity/Vol] 18 U/L 10-42 [facility] Serum or plasma calcium jose antonio urement (mass/volume)Ordered By: Zeinab Justice on 04-23-2022 Calcium [Mass/Vol] 8.8 mg/dL 8.2-10.2 [facility] Serum or plasma chloride doreen surement (moles/volume)Ordered By: Zeinab Justice on 04-23-2022 Chloride [Moles/Vol] 104 mmol/L 95-114 [facility] Serum or plasma glucose jose antonio urement (mass/volume)Ordered By: Zeinab Justice on 04-23-2022 Glucose [Mass/Vol] 98 mg/dL 70-100 [facility] Comment on above: ADA recommended refe rence rangeRandom Glucose Reference Range is dependent on time and content of last meal. Glucose of more than 200 mg/dL in a nonstressed, ambulatory subject supports the diagnosis of Diabetes Mellitus. Serum or plasma potassium me asurement (moles/volume)Ordered By: Zeinab Justice on 04-23-2022 Potassium [Moles/Vol] 4.6 mmol/L 3.5-5.1 [facility] Serum or plasma sodium measu rement (moles/volume)Ordered By: Zeinab Justice on 04-23-2022 Sodium [Moles/Vol] 136 mmol/L 136-146 [facility] Serum or plasma total biliru bin measurement (mass/volume)Ordered By: Zeinab Justice on 04-23-2022 Bilirubin [Mass/Vol] 0.5 mg/dL 0.3-1.2 [facility] Serum or plasma total carbon dioxide measurement (moles/volume)Ordered By: Zeinab Justice on 04-23-2022 CO2 [Moles/Vol] 23.4 mmol/L 22.0-30.0 [facility] Serum or plasma urea nitroge n measurement (mass/volume)Ordered By: Zeinab Justice on 04-23-2022 Urea nitrogen [Mass/Vol] 22 mg/dL 02-21 [facility] CBC W Auto Differential pane l (Bld)on 03-27-2022 Basophils (Bld) [#/Vol] <0.11 k/uL [facility] Basophils/100 WBC (Bld) 0.3 % [facility] Differential cell count method Nom (Bld) Auto [facility] Eosinophils (Bld) [#/Vol] 0.25 10*3/uL <0.46 k/uL [facility] Eosinophils/100 WBC (Bld) 3.2 % [facility] Erythrocyte distribution width (RBC) [Ratio] 14.3 % 11.5 - 15.0 % [facility] Hematocrit (Bld) [Volume fraction] 39.3 % 39.0 - 51.0 % [facility] Hemoglobin (Bld) [Mass/Vol] 12.8 g/dL Low 13.0 - 17.0 g/dL [facility] Immature granulocytes (Bld) [#/Vol] 0.03 10*3/uL <0.10 k/uL [facility] Immature granulocytes/100 WBC (Bld) 0.4 % [facility] Lymphocytes (Bld) [#/Vol] 1.53 10*3/uL 1.00 - 4.00 k/uL [facility] Lymphocytes/100 WBC (Bld) 19.8 % [facility] MCH (RBC) [Entitic mass] 31.4 pg 26.0 - 34.0 pg [facility] MCHC (RBC) [Mass/Vol] 32.6 g/dL 30.5 - 36.0 g/dL [facility] MCV (RBC) [Entitic vol] 96.6 fL 80.0 - 100.0 fL [facility] Monocytes (Bld) [#/Vol] 0.67 10*3/uL <0.87 k/uL [facility] Monocytes/100 WBC (Bld) 8.7 % [facility] Neutrophils (Bld) [#/Vol] 5.21 10*3/uL 1.45 - 7.50 k/uL [facility] Neutrophils/100 WBC (Bld) 67.6 % [facility] Nucleated RBC (Bld) [#/Vol] <0.01 k/uL [facility] Nucleated RBC/100 WBC (Bld) [Ratio] 0.0 /100 WBC [facility] Platelet mean volume (Bld) [Entitic vol] 11.2 fL 9.0 - 12.7 fL [facility] Platelets (Bld) [#/Vol] 183 10*3/uL 150 - 400 k/uL [facility] RBC (Bld) [#/Vol] 4.07 10*6/uL Low 4.20 - 6.00 m/uL [facility] WBC (Bld) [#/Vol] 7.71 10*3/uL 3.70 - 11.00 k/uL [facility] CHEMISTRYOrdered By: SYSTEM SYSTEM on 02-13-2022 Albumin [Mass/Vol] 4.0 g/dL Normal 3.3 - 5.0 gm/dL [facility] Remisol Albumin/Globulin [Mass ratio] 1.2 {ratio} Normal [...] 45 mL/min/1.73 m2 Low >=59mL/min /1.73 m2 [facility] Chem S GFR/1.73 sq M.predicted among non-blacks MDRD (S/P/Bld) [Vol rate/Area] 37 mL/min/1.73 m2 Low >=59mL/min /1.73 m2 [facility] Chem S Globulin (S) [Mass/Vol] 3.3 g/dL Normal 1.4 - 4.0 gm/dL [facility] Remisol Glucose [Mass/Vol] 95 mg/dL Normal 55 - 199 mg/dL [facility] Remisol Potassium [Moles/Vol] 4.5 mmol/L Normal 3.5 - 5.3 mmol/L [facility] Remisol Protein [Mass/Vol] 7.3 g/dL Normal 6.0 - 7.8 gm/dL [facility] Sodium [Moles/Vol] 137 mmol/L Normal 135 - 145 mmol/L [facility] Remisol Urea nitrogen [Mass/Vol] 27 mg/dL High [...] - 11.0 E9/L [facility] HemeAutoSS Cov[facility]-19 PCR [facility]on SARS-CoV-2 (COVID-19) RNA WENCESLAO+probe Ql (Unsp spec) Not detected Normal NOT DETECTED [facility] Comment on above: Result Comment: This test is not yet approved or cleared by the [place] FDA. When there are no FDA-approved or cleared tests available, and other criteria are met, FDA can make tests available under an emergency access mechanism called an Emergency Use Authorization (EUA). The EUA for this test is supported by the [place] of Health and Human Service's (HHS's) declaration [...] SARS-CoV-2. Performed By: #### C VDTBH #### [facility] [address] [address] [address] Leighann Santana PTH INTACTon 01-31-2022 PTH, Intact 35 pg/mL Normal 15-65 [facility] Comment on above: Performed By: #### P THINT #### [facility] [address] [address] [address] Leighann Santana VIT D 25-OH LABCORPon 2021 Vitamin D, 25-Hydroxy 26.2 ng/mL Critically low 30.0-100.0 [facility] Comment on above: Result Comment: [place] min D deficiency has been defined by the [place] of Medicine and an Endocrine Society practice guideline as a level of serum 25-OH vitamin D less than 20 ng/mL (1,2). The Endocrine Society went on to further define vitamin D insufficiency as a level between 21 and 29 ng/mL (2). 1. IOM ([place] of Medicine). 2010. Dietary reference intakes for calcium and D. [place]: The National Academies Press. 2. Grecia MF, [place], John RIVERS, et al. Evaluation, treatment, and prevention of vitamin D deficiency: an Endocrine Society clinical practice guideline. JCEM. 2010; 96(7):1911-30. Performed By: #### V ITADLC #### [facility] [address] [address] [address] Leighann Santana HEMOGRAM AND PLATELon 2021 Hematocrit (Bld) [Volume fraction] 39.3 % Critically low 42.0-54.0 [facility] Comment on above: Performed By: #### H H ####[facility] [address] [address]Dr. Leighann Santana Hemoglobin (Bld) [Mass/Vol] 12.5 g/dL Critically low 14.0-18.0 [facility] Comment on above: Performed By: #### H H ####[facility] [address] [address]Dr. Leighann Santana MCH (RBC) [Entitic mass] 30.2 pg Normal 25.9-34.0 [facility] Comment on above: Performed By: #### H H ####[facility] [address] [address]Dr. Leighann Santana MCHC (RBC) [Mass/Vol] 31.8 g/dL Normal 29.9-35.2 [facility] Comment on above: Performed By: #### H H ####[facility] [address] [address]Dr. Leighann Santana MCV (RBC) [Entitic vol] 94.9 fL Critically high 80.0-94.0 [facility] Comment on above: Performed By: #### H H ####[facility] [address] [address]Dr. Leighann Santana PLT 191 103/ul Normal 150-450 [facility] Comment on above: Performed By: #### H H ####[facility] [address] [address]Dr. Leighann Santana RBC 4.14 106/ul Critically low 4.70-6.10 [facility] Comment on above: Performed By: #### H H ####[facility] [address] [address]Dr. Leighann Santana WBC 7.3 103/ul Normal 4.0-11.0 [facility] Comment on above: Performed By: #### H H ####[facility] [address] [address]Dr. Leighann Santana MAGNESIUMon 01-30-2022 Magnesium [Mass/Vol] 1.9 mg/dL Normal 1.8-2.4 [facility] Comment on above: Performed By: #### R ENAL, MG, URIC ####[facility] [address] [address]Dr. Leighann Santana RENAL FUNCTION PANELon 01-30 Albumin [Mass/Vol] 3.4 g/dL Normal 3.4-5.0 [facility] Comment on above: Performed By: #### R ENAL, MG, URIC ####[facility] [address] [address]Dr. Leighann Santana Calcium [Mass/Vol] 8.7 mg/dL Normal 8.5-10.1 [facility] Comment on above: Performed By: #### R ENAL, MG, URIC ####[facility] [address] [address]Dr. Leighann Santana Chloride [Moles/Vol] 105 mmol/L Normal 98-107 [facility] Comment on above: Performed By: #### R ENAL, MG, URIC ####[facility] [address] [place], [place] [address]Dr. Leighann Santana CO2 [Moles/Vol] 26.5 mmol/L Normal 21.0-32.0 [facility] Comment on above: Performed By: #### R ENAL, MG, URIC ####[facility] [address] [place], [place] [address]Dr. Leighann Santana Creatinine [Mass/Vol] 1.77 mg/dL Critically high 0.70-1.30 [facility] Comment on above: Performed By: #### R ENAL, MG, URIC ####[facility] [address] [place], [place] [address]Dr. Leighann Santana EGFR-AF UKRAINIAN 46 mL/min/1.73m2 Critically low >=60 [facility] Comment on above: Performed By: #### R ENAL, MG, URIC ####[facility] [address] [place], [place] [address]Dr. Leighann Santana EGFR-NON AF UKRAINIAN 38 mL/min/1.73m2 Critically low >=60 [facility] Comment on above: Performed By: #### R ENAL, MG, URIC ####[facility] [address] [place], [place] [address]Dr. Leighann Santana Glucose [Mass/Vol] 136 mg/dL Critically high 74-106 [facility] Comment on above: Performed By: #### R ENAL, MG, URIC ####[facility] [address] [place], [place] [id number]. Leighann Santana Phosphate [Mass/Vol] 3.6 mg/dL Normal 2.6-4.7 [facility] Comment on above: Performed By: #### R ENAL, MG, URIC ####[facility] [address] [address]Dr. Leighann Santana Potassium [Moles/Vol] 4.5 mmol/L Normal 3.5-5.1 [facility] Comment on above: Performed By: #### R ENAL, MG, URIC ####[facility] [address] [address]Dr. Leighann Santana Sodium [Moles/Vol] 140 mmol/L Normal 136-145 [facility] Comment on above: Performed By: #### R ENAL, MG, URIC ####[facility] [address] [address]Dr. Leighann Santana Urea nitrogen [Mass/Vol] 25.0 mg/dL Critically high 7.0-18.0 [facility] Comment on above: Performed By: #### R ENAL, MG, URIC ####[facility] [address] [address]Dr. Leighann Santana UA RANDOM W/MICROSCOPICon BACTERIA SMALL Abnormal NONE SEEN [facility] Comment on above: Performed By: #### U AMIC #### [facility] [address] [place] [address] Dr. Leighann Santana Bilirubin Ql (U) Negative Normal NEGATIVE [facility] Comment on above: Performed By: #### U AMIC #### [facility] [address] [address] [address] Leighann Santana CAST NONE SEEN Normal NONE SEEN [facility] Comment on above: Performed By: #### U AMIC #### [facility] [address] [place] [address] Dr. Leighann Santana Clarity (U) CLEAR Normal CLEAR [facility] Comment on above: Performed By: #### U AMIC #### [facility] [address] [place] [address] Dr. Leighann Santana Color (U) LT. YELLOW Normal YELLOW [facility] Comment on above: Performed By: #### U AMIC #### [facility] [address] [address] [address] Leighann Santana Crystals LM Nom (Urine sed) NONE SEEN Normal NONE SEEN [facility] Comment on above: Performed By: #### U AMIC #### [facility] [address] [address] [address] Leighann Santana Epithelial cells LM Ql (Urine sed) FEW Abnormal NONE SEEN /RARE [facility] Comment on above: Performed By: #### U AMIC #### [facility] [address] [address] [address] Leighann Santana Glucose Ql (U) Negative Normal NEGATIVE [facility] Comment on above: Performed By: #### U AMIC #### [facility] [address] [place] [address] Dr. Leighann Santana Hemoglobin Ql (U) TRACE-INTACT Abnormal NEGATIVE [facility] Comment on above: Performed By: #### U AMIC #### [facility] [address] [address] [address] Leighann Santana Ketones Ql (U) Negative Normal NEGATIVE [facility] Comment on above: Performed By: #### U AMIC #### [facility] [address] [address] [address] Leighann Santana LEUKOCYTES MODERATE Abnormal NEGATIVE [facility] Comment on above: Performed By: #### U AMIC #### [facility] [address] [address] [address] Leighann Santana MUCOUS NONE SEEN Normal NONE SEEN [facility] Comment on above: Performed By: #### U AMIC #### [facility] [address] [address] [address] Leighann Santana Nitrite Ql (U) Positive Abnormal NEGATIVE [facility] Comment on above: Performed By: #### U AMIC #### [facility] [address] [address] [address] Leighann Santana pH (U) 5.5 [pH] Normal 5-9 [facility] Comment on above: Performed By: #### U AMIC #### [facility] [address] [address] [address] Leighann Santana RBC 2-5 Abnormal 0-2 [facility] Comment on above: Performed By: #### U AMIC #### [facility] [address] [address] [address] Leighann Santana SPEC GRAVITY >=1.030 Abnormal 1.005-<=1. 025 [facility] Comment on above: Performed By: #### U AMIC #### [facility] [address] [address] [address] Leighann Santana UA PROTEIN 30 mg/dl Abnormal NEGATIVE/ TRACE [facility] Comment on above: Performed By: #### U AMIC #### [facility] [address] [place] [address] Dr. Leighann Santana Urobilinogen Qn (U) 0.2 {Jing'U}/dL Normal 0.2 - 1. 0 [facility] Comment on above: Performed By: #### U AMIC #### [facility] [address] [place] [address] Dr. Leighann Santana WBC 10-20 Abnormal NONE SEEN [facility] Comment on above: Performed By: #### U AMIC #### [facility] [address] [place] [address] Dr. Leighann Santana URIC ACID SERUMon 01-30-2022 Urate [Mass/Vol] 6.5 mg/dL Normal 3.5-7.2 [facility] Comment on above: Performed By: #### R ENAL, MG, URIC ####[facility] [address] [address]Dr. Leighann Santana URINE T PROTEIN CREAT RATIOo n 01-30-2022 Protein (U) [Mass/Vol] 73.2 mg/dL Critically high <=12.0 [facility] Comment on above: Performed By: #### U RTPCR #### [facility] [address] [place] [address] Dr. Leighann Santana UR PROT CREAT RAT 0.42 Normal [facility] Comment on above: Performed By: #### U RTPCR #### [facility] [address] [address] [address] Leighann Santana URINE CREAT 175.21 mg/dL Normal 20.00-300. 00 [facility] Comment on above: Performed By: #### U RTPCR #### [facility] [address] [address] [address] Leighann Santana SURGICAL PATH REPORTon 06-11 SURGICAL PATH REPORT [facility] Department of Pathology [address] [place] [id number] Name: YESENIA BROUSSARD : 1945 [facility] [id number] Number: Gender: Male Location: [facility] Admit 75 years Attending BARBARA JOHNSTON Age: Provider: Ordering BARBARA JOHNSTON Provider: Consulting: Surgical Pathology Report ACCESSION: COLLECTED DATE/TIME: RECEIVED DATE/TIME: PATHOLOGIST: [id number] 06/06/2021 16:30 EST 06/07/2021 11:15 EST QUINN MAK, [facility] Final Diagnosis Report for THE WHITT, [place] PROSTATE TISSUE; TURP: - PROSTATIC ACINAR [...] Not identified Cribriform Glands Not identified Print Date06/11/2021 16:16 EST Number: Time: [facility] Department of Pathology [address] [place] [id number] Name: YESENIA BROUSSARD : 1945 [facility] [id number] Number: Gender: Male Location: [facility] Admit 75 years Attending BARBARA JOHNSTON Age: Provider: Ordering BARBARA JOHNSTON Provider: Consulting: Surgical Pathology Report ACCESSION: COLLECTED DATE/TIME: RECEIVED DATE/TIME: PATHOLOGIST: [id number] 06/06/2021 16:30 EST 06/07/2021 11:15 EST KATYA BALL MD Final Diagnosis TUMOR QUANTITATION Tumor Quantitation For [...] Print Date/ 06/11/2021 16:16 EST Number: Time: [facility] Department of Pathology [address] [place] [address] Name: YESENIA BROUSSARD : 1945 [facility] [id number] Number: Gender: Male Location: [facility] Admit 75 years Attending BARBARA JOHNSTON Age: Provider: Ordering BARBARA JOHNSTON Provider: Consulting: Surgical Pathology Report ACCESSION: COLLECTED DATE/TIME: RECEIVED DATE/TIME: PATHOLOGIST: [id number] 06/06/2021 16:30 EST 06/07/2021 11:15 EST QUINN MAK, [facility] Gross Description Labeled prostate tissue. Received in formalin are multiple hemicylindrical segments of khan- pink firm, but pliable tissue. The segments have an aggregate weight of 12 grams and measure in aggregate 7.8 x 6.4 x 2.0 cm. There are calculi present amongst the tissue segment. The specimen is entirely submitted in twelve cassettes. MP/ww 06/07/2021 Tissue pathology report for: [facility], [address] [place] [address]; PATHOLOGY SERVICES PROVIDED BY [employer] (CLIA #[id number]) in cooperation with [facility] at [address] [place] [address] (CLIA #[id number]) Codes CPT CODE: 19895 Print Date06/11/2021 16:16 EST Number: Time: Normal [facility] Comment on above: Performed By: #### [id number] #### [facility] [address] [place], [place] [id number] Astronautical Engineer: Gigi Peters MD Vital Signs Date Time Vital Sign Value Performing Clinician Facility 08-18-2023 12:12-0400 Diastolic blood pressure 60 mm[Hg] Chaim Grayson DO Work Phone: [facility] 08-18-2023 12:12-0400 Systolic blood pressure 138 mm[Hg] Chaim Grayson DO Work Phone: [facility] 08-18-2023 11:52-0400 Body height 177.8 cm Chaim Grayson DO Work Phone: [facility] 08-18-2023 11:52-0400 Body mass index (BMI) [Ratio] 28.12 kg/m2 Chaim Grayson DO Work Phone: [facility] 08-18-2023 11:52-0400 Body weight 88.91 kg Chaim Grayson DO Work Phone: [facility] 08-18-2023 11:52-0400 Heart rate 80 /min Chaim Grayson DO Work Phone: [facility] 06-18-2023 13:11-0500 Diastolic blood pressure 94 mm[Hg] [address] 06-18-2023 13:11-0500 Heart rate 86 /min [address] 06-18-2023 13:11-0500 Systolic blood pressure 154 mm[Hg] [address] 06-12-2023 11:11-0500 Body height 177.8 cm Kodi Reynolds MD Work Phone: [facility] 06-12-2023 11:11-0500 Body weight 88.91 kg Kodi Reynolds MD Work Phone: [facility] 06-04-2023 10:19-0500 Diastolic blood pressure 84 mm[Hg] Chaim Grayson DO Work Phone: [facility] 06-04-2023 10:19-0500 Systolic blood pressure 154 mm[Hg] Chaim Grayson DO Work Phone: [facility] 06-04-2023 10:18-0500 Body height 177.8 cm Chaim Grayson DO Work Phone: [facility] 06-04-2023 10:18-0500 Body mass index (BMI) [Ratio] 28.41 kg/m2 Chaim Grayson DO Work Phone: [facility] 06-04-2023 10:18-0500 Body weight 89.81 kg Chaim Grayson DO Work Phone: [facility] 06-04-2023 10:18-0500 Heart rate 83 /min Chaim Grayson DO Work Phone: [facility] 04-21-2023 09:05-0500 Diastolic blood pressure 86 mm[Hg] CLAIRE BRITNI [facility] 04-21-2023 09:05-0500 Heart rate 76 /min CLAIRE BRITNI [facility] 04-21-2023 09:05-0500 Mean blood pressure 108 mm[Hg] CLAIRE BRITNI [facility] 04-21-2023 09:05-0500 Systolic blood pressure 151 mm[Hg] CLAIRE BRITNI [facility] 04-21-2023 08:20-0500 Blood Pressure Location CLAIRE BRITNI [facility] 04-21-2023 08:20-0500 Diastolic blood pressure 84 mm[Hg] CLAIRE BRITNI [facility] 04-21-2023 08:20-0500 Heart rate 79 /min CLAIRE BRITNI [facility] 04-21-2023 08:20-0500 Respiratory rate 16 /min CLAIRE BRITNI [facility] 04-21-2023 08:20-0500 Systolic blood pressure 153 mm[Hg] CLAIRE BRITNI [facility] 04-16-2023 11:30-0500 Body height 177.8 cm Jose Martin Mchugh Other [employer] Other 04-16-2023 11:30-0500 Body mass index (BMI) [Ratio] 28.26 kg/m2 Jose Martin Jeison Other [employer] Other 04-16-2023 11:30-0500 Body temperature 97.8 [degF] Jose Martin Jeison Other [employer] Other 04-16-2023 11:30-0500 Body weight 89.36 kg Jose Martin Jeison Other [employer] Other 04-16-2023 11:30-0500 Diastolic blood pressure 62 mm[Hg] Jose Martin Jeison Other [employer] Other 04-16-2023 11:30-0500 SaO2% (BldA) [Mass fraction] 97 % Jose Martin Jeison Other [employer] Other 04-16-2023 11:30-0500 Systolic blood pressure 120 mm[Hg] Jose Martin Jeison Other [employer] Other 03-23-2023 12:55-0400 Diastolic blood pressure 78 mm[Hg] MD Shaikh Storm Work Phone: [facility] 03-23-2023 12:55-0400 Heart rate 54 /min MD Shaikh Storm Work Phone: [facility] 03-23-2023 12:55-0400 Respiratory rate 16 /min MD Shaikh Storm Work Phone: [facility] 03-23-2023 12:55-0400 SaO2% (BldA) [Mass fraction] 95 % MD Shaikh Storm Work Phone: [facility] 03-23-2023 12:55-0400 Systolic blood pressure 145 mm[Hg] MD Shaikh Storm Work Phone: [facility] 03-23-2023 09:48-0400 Inhaled oxygen flow rate 4 L/min MD Shaikh Storm Work Phone: [facility] 03-23-2023 07:22-0400 Body height 177.8 cm MD Shaikh Storm Work Phone: [facility] 03-23-2023 07:22-0400 Body weight 89.35 kg MD Shaikh Storm Work Phone: [facility] 03-12-2023 08:30-0400 Body height 177.8 cm Jose Martin Mchugh Other [employer] Other 03-12-2023 08:30-0400 Body mass index (BMI) [Ratio] 28.26 kg/m2 Jose Martin Mchugh Other [employer] Other 03-12-2023 08:30-0400 Body temperature 97.5 [degF] Jose Martin Mchugh Other [employer] Other 03-12-2023 08:30-0400 Body weight 89.36 kg Jose Martin Mchugh Other [employer] Other 03-12-2023 08:30-0400 Diastolic blood pressure 68 mm[Hg] Jose Martin Mchugh Other [employer] Other 03-12-2023 08:30-0400 SaO2% (BldA) [Mass fraction] 97 % Jose Martin Mchugh Other [employer] Other 03-12-2023 08:30-0400 Systolic blood pressure 128 mm[Hg] Jose Martin Mchugh Other [employer] Other 02-20-2023 11:15-0400 Diastolic blood pressure 63 mm[Hg] MD Shaikh Storm Work Phone: [facility] 02-20-2023 11:15-0400 Heart rate 45 /min MD Shaikh Storm Work Phone: [facility] 02-20-2023 11:15-0400 Respiratory rate 18 /min MD Shaikh Storm Work Phone: [facility] 02-20-2023 11:15-0400 SaO2% (BldA) [Mass fraction] 95 % MD Shaikh Storm Work Phone: [facility] 02-20-2023 11:15-0400 Systolic blood pressure 123 mm[Hg] MD Shaikh Storm Work Phone: [facility] 02-20-2023 11:07-0400 Body height 177.8 cm MD Shaikh Storm Work Phone: [facility] 02-20-2023 11:07-0400 Body mass index (BMI) [Ratio] 29 kg/m2 MD Shaikh Storm Work Phone: [facility] 02-20-2023 11:07-0400 Body weight 92 kg MD Shaikh Storm Work Phone: [facility] 02-20-2023 07:53-0400 Body temperature 98 [degF] MD Shaikh Storm Work Phone: [facility] 02-18-2023 11:30-0400 Body height 177.8 cm Bonnie Tan Other [employer] Other 02-18-2023 11:30-0400 Body mass index (BMI) [Ratio] 29.12 kg/m2 Bonnie Tan Other [employer] Other 02-18-2023 11:30-0400 Body temperature 97.8 [degF] Bonnie Tan Other [employer] Other 02-18-2023 11:30-0400 Body weight 92.08 kg Bonnie Tan Other [employer] Other 02-18-2023 11:30-0400 Diastolic blood pressure 76 mm[Hg] Bonnie Tan Other [employer] Other 02-18-2023 11:30-0400 SaO2% (BldA) [Mass fraction] 97 % Bonnie Tan Other [employer] Other 02-18-2023 11:30-0400 Systolic blood pressure 126 mm[Hg] Bonnie Tan Other [employer] Other 02-11-2023 14:48-0400 Blood Pressure Location CLAIRE BRITNI [facility] 02-11-2023 14:48-0400 Diastolic blood pressure 74 mm[Hg] CLAIRE BRITNI [facility] 02-11-2023 14:48-0400 Heart rate 80 /min CLAIRE BRITNI [facility] 02-11-2023 14:48-0400 Respiratory rate 16 /min CLAIRE BRITNI [facility] 02-11-2023 14:48-0400 Systolic blood pressure 130 mm[Hg] CLAIRE BRITNI [facility] 01-19-2023 13:04-0400 Body weight 92.63 kg Jose Nichols DO Work Phone: [facility] 01-19-2023 13:04-0400 Diastolic blood pressure 58 mm[Hg] Jose Nichols DO Work Phone: [facility] 01-19-2023 13:04-0400 Heart rate 48 /min Jose Nichols DO Work Phone: [facility] 01-19-2023 13:04-0400 Systolic blood pressure 122 mm[Hg] Jose Nichols DO Work Phone: [facility] 12-03-2022 14:57-0400 Blood Pressure Location CLAIRE BRITIN [facility] 12-03-2022 14:57-0400 Diastolic blood pressure 76 mm[Hg] CLAIRE BRITNI [facility] 12-03-2022 14:57-0400 Heart rate 69 /min CLAIRE BRITNI [facility] 12-03-2022 14:57-0400 Respiratory rate 16 /min CLAIRE BRITNI [facility] 12-03-2022 14:57-0400 Systolic blood pressure 138 mm[Hg] CLAIRE BRITNI [facility] 11-18-2022 13:29-0400 Body temperature 98.71 [degF] SRAVANTHI Nazario MD Work Phone: [facility] 11-18-2022 13:29-0400 Body weight 92.53 kg SRAVANTHI Nazario MD Work Phone: [facility] 11-18-2022 13:29-0400 Diastolic blood pressure 54 mm[Hg] SRAVANTHI Nazario MD Work Phone: [facility] 11-18-2022 13:29-0400 Heart rate 56 /min SRAVANTHI Nazario MD Work Phone: [facility] 11-18-2022 13:29-0400 Respiratory rate 18 /min SRAVANTHI Nazario MD Work Phone: [facility] 11-18-2022 13:29-0400 SaO2% (BldA) [Mass fraction] 96 % SRAVANTHI Nazario MD Work Phone: [facility] 11-18-2022 13:29-0400 Systolic blood pressure 112 mm[Hg] SRAVANTHI Nazario MD Work Phone: [facility] 04-21-2022 15:30-0500 Body temperature 96.69 [degF] SRAVANTHI Nazario MD Work Phone: [facility] 04-21-2022 15:30-0500 Body weight 95.71 kg SRAVANTHI Nazario MD Work Phone: [facility] 04-21-2022 15:30-0500 Diastolic blood pressure 70 mm[Hg] SRAVANTHI Nazario MD Work Phone: [facility] 04-21-2022 15:30-0500 Heart rate 58 /min SRAVANTHI Nazario MD Work Phone: [facility] 04-21-2022 15:30-0500 Respiratory rate 18 /min SRAVANTHI Nazario MD Work Phone: [facility] 04-21-2022 15:30-0500 SaO2% (BldA) [Mass fraction] 98 % SRAVANTHI Nazario MD Work Phone: [facility] 04-21-2022 15:30-0500 Systolic blood pressure 154 mm[Hg] SRAVANTHI Nazario MD Work Phone: [facility] 04-14-2022 15:04-0500 Body temperature 97.59 [degF] SRAVANTHI Nazario MD Work Phone: [facility] 04-14-2022 15:04-0500 Body weight 93.44 kg SRAVANTHI Nazario MD Work Phone: [facility] 04-14-2022 15:04-0500 Diastolic blood pressure 68 mm[Hg] SRAVANTHI Nazario MD Work Phone: [facility] 04-14-2022 15:04-0500 Heart rate 64 /min SRAVANTHI Nazario MD Work Phone: [facility] 04-14-2022 15:04-0500 Respiratory rate 16 /min SRAVANTHI Nazario MD Work Phone: [facility] 04-14-2022 15:04-0500 SaO2% (BldA) [Mass fraction] 97 % SRAVANTHI Nazario MD Work Phone: [facility] 04-14-2022 15:04-0500 Systolic blood pressure 128 mm[Hg] SRAVANTHI Nazario MD Work Phone: [facility] 04-07-2022 11:01-0500 Body temperature 97.39 [degF] SRAVANTHI Nazario MD Work Phone: [facility] 04-07-2022 11:01-0500 Body weight 94.35 kg SRAVANTHI Nazario MD Work Phone: [facility] 04-07-2022 11:01-0500 Diastolic blood pressure 63 mm[Hg] SRAVANTHI Nazario MD Work Phone: [facility] 04-07-2022 11:01-0500 Heart rate 55 /min SRAVANTHI Nazario MD Work Phone: [facility] 04-07-2022 11:01-0500 Respiratory rate 18 /min SRAVANTHI Nazario MD Work Phone: [facility] 04-07-2022 11:01-0500 SaO2% (BldA) [Mass fraction] 98 % SRAVANTHI Nazario MD Work Phone: [facility] 04-07-2022 11:01-0500 Systolic blood pressure 138 mm[Hg] SRAVANTHI Nazario MD Work Phone: [facility] 03-31-2022 15:33-0400 Body temperature 96.69 [degF] SRAVANTHI Nazario MD Work Phone: [facility] 03-31-2022 15:33-0400 Body weight 94.8 kg SRAVANTHI Nazario MD Work Phone: [facility] 03-31-2022 15:33-0400 Diastolic blood pressure 72 mm[Hg] SRAVANTHI Nazario MD Work Phone: [facility] 03-31-2022 15:33-0400 Heart rate 54 /min SRAVANTHI Nazario MD Work Phone: [facility] 03-31-2022 15:33-0400 Respiratory rate 18 /min SRAVANTHI Nazario MD Work Phone: [facility] 03-31-2022 15:33-0400 SaO2% (BldA) [Mass fraction] 97 % SRAVANTHI Nazario MD Work Phone: [facility] 03-31-2022 15:33-0400 Systolic blood pressure 145 mm[Hg] SRAVANTHI Nazario MD Work Phone: [facility] 03-24-2022 16:03-0400 Body temperature 98.01 [degF] SRAVANTHI Nazario MD Work Phone: [facility] 03-24-2022 16:03-0400 Body weight 93.44 kg SRAVANTHI Nazario MD Work Phone: [facility] 03-24-2022 16:03-0400 Diastolic blood pressure 65 mm[Hg] SRAVANTHI Nazario MD Work Phone: [facility] 03-24-2022 16:03-0400 Heart rate 50 /min SRAVANTHI Nazario MD Work Phone: [facility] 03-24-2022 16:03-0400 Respiratory rate 16 /min SRAVANTHI Nazario MD Work Phone: [facility] 03-24-2022 16:03-0400 SaO2% (BldA) [Mass fraction] 100 % SRAVANTHI Nazario MD Work Phone: [facility] 03-24-2022 16:03-0400 Systolic blood pressure 141 mm[Hg] SRAVANTHI Nazario MD Work Phone: [facility] 03-18-2022 11:52-0400 Body temperature 97.9 [degF] SRAVANTHI Nazario MD Work Phone: [facility] 03-18-2022 11:52-0400 Body weight 93.44 kg SRAVANTHI Nazario MD Work Phone: [facility] 03-18-2022 11:52-0400 Diastolic blood pressure 71 mm[Hg] SRAVANTHI Nazario MD Work Phone: [facility] 03-18-2022 11:52-0400 Heart rate 56 /min SRAVANTHI Nazario MD Work Phone: [facility] 03-18-2022 11:52-0400 Respiratory rate 16 /min SRAVANTHI Nazario MD Work Phone: [facility] 03-18-2022 11:52-0400 SaO2% (BldA) [Mass fraction] 96 % SRAVANTHI Nazario MD Work Phone: [facility] 03-18-2022 11:52-0400 Systolic blood pressure 115 mm[Hg] SRAVANTHI Nazario MD Work Phone: [facility] 12-10-2021 09:19-0400 Body height 175.9 cm SRAVANTHI Nazario MD Work Phone: [facility] 12-10-2021 09:19-0400 Body temperature 98.71 [degF] SRAVANTHI Nazario MD Work Phone: [facility] 12-10-2021 09:19-0400 Body weight 94.35 kg SRAVANTHI Nazario MD Work Phone: [facility] 12-10-2021 09:19-0400 Diastolic blood pressure 68 mm[Hg] SRAVANTHI Nazario MD Work Phone: [facility] 12-10-2021 09:19-0400 Heart rate 51 /min SRAVANTHI Nazario MD Work Phone: [facility] 12-10-2021 09:19-0400 Respiratory rate 16 /min SRAVANTHI Nazario MD Work Phone: [facility] 12-10-2021 09:19-0400 SaO2% (BldA) [Mass fraction] 97 % SRAVANTHI Nazario MD Work Phone: [facility] 12-10-2021 09:19-0400 Systolic blood pressure 116 mm[Hg] SRAVANTHI Nazario MD Work Phone: [facility] 11-04-2021 09:48-0400 Blood Pressure Location Barbaraterry JOHNSTON [facility] 11-04-2021 09:48-0400 Diastolic blood pressure 61 mm[Hg] Barbara JOHNSTON [facility] 11-04-2021 09:48-0400 Heart rate 52 /min Barbaraterry JOHNSTON [facility] 11-04-2021 09:48-0400 Systolic blood pressure 123 mm[Hg] Barbaraterry JOHNSTON [facility] 10-24-2021 16:40-0400 Body height 177.8 cm Theo Vivian Other [employer] Other 10-24-2021 16:40-0400 Body mass index (BMI) [Ratio] 29.01 kg/m2 Theo Vivian Other [employer] Other 10-24-2021 16:40-0400 Body temperature 98 [degF] Theo Vivian Other [employer] Other 10-24-2021 16:40-0400 Body weight 91.72 kg Theo Vivian Other [employer] Other 10-24-2021 16:40-0400 Diastolic blood pressure 72 mm[Hg] Theo Vivian Other [employer] Other 10-24-2021 16:40-0400 Respiratory rate 18 /min Theo Vivian Other [employer] Other 10-24-2021 16:40-0400 SaO2% (BldA) [Mass fraction] 96 % Theo Vivian Other [employer] Other 10-24-2021 16:40-0400 Systolic blood pressure 130 mm[Hg] Theo Vivian Other [employer] Other Encounters Encounter Date Encounter Type Care Provider Facility Start: 08-18-2023 End: 08-18-2023 Office outpatient visit 25 minutes Chaim Austindon DO Work Phone: [facility] Comment on above: Hypertension, unspec ified type; Mixed hyperlipidemia; Bilateral carotid artery disease, unspecified type (CMS/HCC); History of MA (myocardial infarction); BMI 28.0-28.9,adult; ASHD (arteriosclerotic heart disease); PVD (peripheral vascular disease) ([facility]); Smoker; Chest pain, unspecified type Start: 08-10-2023 End: 08-11-2023 ambulatory Adalid Will MD Facility: [facility] Start: 07-08-2023 End: 07-08-2023 ambulatory [facility] Ambulatory Start: 07-07-2023 End: 07-08-2023 ambulatory CLAIRE JAMES Facility:[facility] Start: 06-29-2023 End: 06-29-2023 ambulatory CARREON DOTTY Not Available Start: 06-18-2023 End: 06-19-2023 ambulatory [facility] Start: 06-18-2023 End: 06-18-2023 Subsequent hospital visit by physician Tram Jama Stress Room [facility] Start: 06-12-2023 End: 06-13-2023 ambulatory JOSE NICHOLS Facility:[facility] Start: 06-12-2023 End: 06-12-2023 Office outpatient new 45 minutes Kodi Reynolds MD Work Phone: [facility] Comment on above: Spondylolisthesis of lumbar region (Primary Dx) Start: 06-10-2023 End: 06-10-2023 ambulatory Shaikh Dotty Facility:[facility] Start: 06-04-2023 End: 06-04-2023 ambulatory [facility] Ambulatory Start: 06-04-2023 End: 06-04-2023 Office consultation new/estab patient 80 min [facility] DO Work Phone: [facility] Comment on above: Hypertension, unspec ified type; Stage 3 chronic kidney disease, unspecified whether stage 3a or 3b CKD (CMS/HCC); Mixed hyperlipidemia; Bilateral carotid artery disease, unspecified type (CMS/HCC); Smoker; Chest pressure Start: 05-21-2023 End: 05-21-2023 ambulatory Shaikh Dotty Facility:[facility] Start: 05-21-2023 End: 05-21-2023 ambulatory MD Shaikh Storm Work Phone: [facility] Work Phone: Start: 05-21-2023 End: 05-21-2023 Patient encounter procedure MD Shaikh Storm Work Phone: [facility]-Electrodiagnostic s Work Phone: Start: 05-19-2023 End: 05-20-2023 ambulatory Genoveva NAZARIO Facility:[facility] Start: 05-19-2023 Telephone encounter G Jose [facility] MD [facility] Comment on above: Appointment Confirma tion Start: 05-18-2023 ambulatory Jose rinaldi DO Work Phone: [facility] Start: 05-18-2023 Patient encounter procedure Jose Nichols DO Work Phone: [facility] Comment on above: Consultation with a surgeon Start: 05-11-2023 End: 05-11-2023 ambulatory SHAIKH DOTTY Facility:[facility] Start: 04-27-2023 End: 04-27-2023 ambulatory SHAIKH DOTTY Not Available Start: 04-21-2023 End: 04-22-2023 ambulatory CLAIRE JAMES Facility:[facility] Start: 04-21-2023 End: 04-22-2023 ambulatory CLAIRE JAMES Facility:[facility] Start: 04-21-2023 End: 04-21-2023 Lab Drop off CLAIRE JAMES [facility] Start: 04-21-2023 End: 04-21-2023 Patient encounter procedure CLAIRE JAMES [facility] Start: 04-16-2023 Office outpatient vi sit 15 minutes Jose Martin Mchugh [facility] Vascular Surgery Start: 04-16-2023 End: 04-16-2023 ambulatory MD Shaikh Storm Work Phone: [facility] [employer] Other Start: 04-16-2023 End: 04-16-2023 Patient encounter procedure MD Shaikh Storm Work Phone: [facility]Ultrasound [facility] Vascular Start: 03-23-2023 End: 03-23-2023 ambulatory Shaikh Dotty Facility:[facility] Start: 03-23-2023 End: 03-23-2023 Admission to same day surgery center MD Shaikh Storm Work Phone: [facility]-Interventional Radiology Work Phone: Start: 03-23-2023 End: 03-23-2023 ambulatory MD Shaikh Storm Work Phone: [facility] Work Phone: Start: 03-12-2023 End: 03-12-2023 ambulatory Jose Martin Mchugh Other [facility] [employer] Other Start: 03-12-2023 Office outpatient vi sit 25 minutes Jose Martin Mchugh [facility] Vascular Surgery Start: 03-12-2023 Telephone encounter Theo Thakkar [facility] Nephrology Start: 03-09-2023 End: 03-09-2023 ambulatory Theo Thakkar Facility:[facility] Start: 03-09-2023 End: 03-09-2023 ambulatory MD Shaikh Storm Work Phone: [facility] Work Phone: Start: 03-09-2023 End: 03-09-2023 Patient encounter procedure MD Shaikh Storm Work Phone: [facility] [place] Work Phone: Start: 03-05-2023 End: 03-05-2023 ambulatory Shaikh Dotty Facility:[facility] Start: 03-05-2023 End: 03-05-2023 ambulatory MD Shaikh Storm Work Phone: [facility] Work Phone: Start: 03-05-2023 End: 03-05-2023 Patient encounter procedure MD Shaikh Storm Work Phone: [facility]tras[facility] [place] Work Phone: Start: 03-04-2023 End: 03-04-2023 ambulatory Shaikh Dotty Facility:[facility] Start: 03-04-2023 End: 03-04-2023 ambulatory MD Shaikh Storm Work Phone: [facility] Work Phone: Start: 03-04-2023 End: 03-04-2023 Patient encounter procedure MD Shaikh Storm Work Phone: [facility] [place] Work Phone: Start: 02-20-2023 End: 02-20-2023 ambulatory Lyla Nazario Facility:[facility] Start: 02-20-2023 End: 02-20-2023 Admission to same day surgery center MD Shaikh Storm Work Phone: [facility]Surgery Center [place] Start: 02-18-2023 End: 02-18-2023 ambulatory Bonnie Tan Other [employer] Other Start: 02-18-2023 Office outpatient ne w 60 minutes Bonnie Tan [facility] Vascular Surgery Start: 02-11-2023 End: 02-12-2023 ambulatory CLAIRE JAMES Facility:[facility] Start: 02-11-2023 End: 02-11-2023 Patient encounter procedure CLAIRE JAMES [facility] Start: 02-06-2023 End: 02-06-2023 ambulatory Temporary Anesthesiologist Facility:[facility] Start: 02-06-2023 End: 02-06-2023 ambulatory MD Shaikh Storm Work Phone: [facility] Work Phone: Start: 02-06-2023 End: 02-06-2023 Departed Referred MD Shaikh Storm Work Phone: [facility] [facility] Work Phone: Start: 02-06-2023 End: 02-06-2023 Patient encounter procedure MD Shaikh Storm Work Phone: [facility] [facility] Work Phone: Start: 01-20-2023 Telephone encounter Constance Durand [employer] H ematology/Oncology Comment on above: Social Work Services Start: 01-19-2023 End: 01-19-2023 ambulatory SHAIKH DOTTY Facility:[facility] Start: 01-19-2023 End: 01-19-2023 Patient encounter procedure Jose Nichols DO Work Phone: [facility] Comment on above: Spinal stenosis, 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); Foraminal stenosis of lumbar region; Peripheral artery disease (HCC); Prostate cancer (HCC) Start: 01-15-2023 Telephone encounter Jose Nichols DO Work Phone: [address] [place] [address] Comment on above: Orders; Appointment Start: 01-09-2023 End: 01-09-2023 ambulatory Shaikh Fernandalolybooker Facility:[facility] Start: 01-09-2023 End: 01-09-2023 ambulatory MD Shaikh Storm Work Phone: [facility] Work Phone: Start: 01-09-2023 End: 01-09-2023 Patient encounter procedure MD Shaikh Storm Work Phone: [facility] [place] Work Phone: Start: 01-06-2023 Telephone encounter Genoveva Nazario MD Work Phone: Radiation Oncology Comment on above: Orders Start: 01-06-2023 ambulatory CLAIRE Gonzalesi ty:TRISTIN Arias Start: 01-05-2023 Telephone encounter Evelyn Chamberlain RN [facility] Comment on above: Patient Question; Ap pointment Start: 12-03-2022 End: 12-04-2022 ambulatory CLAIRE JAMES Facility:[facility] Start: 12-03-2022 End: 12-03-2022 Patient encounter procedure CLAIRE Elbert STEPHENSRY [facility] Start: 11-18-2022 End: 11-18-2022 ambulatory SHAIKH DOTTY Facility:[facility] Start: 11-18-2022 Telephone encounter Genoveva Nazario MD Work Phone: [facility] Comment on above: Referral Information Start: 11-18-2022 End: 11-18-2022 ambulatory Bhumika Betts APRN.CNP Work Phone: Hematology/Oncology Comment on above: Prostate cancer (HCC ); Stage 3 chronic kidney disease, unspecified whether stage 3a or 3b CKD (HCC) Start: 11-18-2022 End: 11-18-2022 Patient encounter procedure Genoveva Nazario MD Work Phone: Radiation Oncology Comment on above: History of prostate cancer (Primary Dx); Spinal arthritis; Spinal stenosis of lumbar region, unspecified whether neurogenic claudication present Start: 11-17-2022 End: 11-17-2022 ambulatory [facility] Start: 10-28-2022 End: 10-29-2022 ambulatory [facility] Facility: Start: 10-09-2022 End: 10-10-2022 ambulatory ALBERTO LAKALFMIPATHY . Facility: Start: 07-15-2022 ambulatory RUT Avila ty:H1 Start: 06-06-2022 [facility] Comment on above: Social Work Services Start: 06-05-2022 End: 06-05-2022 ambulatory [facility] Facility:[facility] Start: 06-05-2022 End: 06-05-2022 Patient encounter procedure Lab/[facility] Work Phone: Radiation Oncology Comment on above: Urinary tract infect ion without hematuria, site unspecified (Primary Dx) Start: 05-15-2022 Telephone encounter Genoveva Nazario MD Work Phone: Radiation Oncology Comment on above: Results; Appointment Start: 05-15-2022 End: 05-16-[address] HOSEA OLIVA . Facility: Start: 05-09-2022 End: 05-09-2022 ambulatory MD Shaikh Storm Work Phone: [facility] Work Phone: Start: 05-09-2022 End: 05-09-2022 Patient encounter procedure MD Shaikh Storm Work Phone: [facility] [place] Start: 04-30-2022 Social Work Constance BROWN Hematolo gy/Oncology Start: 04-23-2022 End: 04-23-2022 ambulatory MD Shaikh Storm Work Phone: [facility] Work Phone: Start: 04-23-2022 End: 04-23-2022 Patient encounter procedure MD Shaikh Storm Work Phone: [facility] [place] Start: 04-23-2022 Radiation Oncology Note G Mahamed Nazario MD Work Phone: Radiation Oncology Comment on above: Completion Note Start: 04-21-2022 End: 04-21-2022 Patient encounter procedure Genoveva Nazario MD Work Phone: Radiation Oncology Comment on above: Malignant neoplasm o f prostate (HCC) (Primary Dx) Start: 04-14-2022 End: 04-14-2022 Patient encounter procedure Genoveva Nazario MD Work Phone: Radiation Oncology Comment on above: Malignant neoplasm o f prostate (HCC) (Primary Dx) Start: 04-07-2022 End: 04-07-2022 Patient encounter procedure Genoveva Nazario MD Work Phone: Radiation Oncology Comment on above: Malignant neoplasm o f prostate (HCC) (Primary Dx) Start: 03-31-2022 End: 03-31-2022 Social Work Constance BROWN Hematology/Oncology Comment on above: Malignant neoplasm o f prostate (HCC) (Primary Dx) Start: 03-27-2022 End: 03-27-2022 Patient encounter procedure Lab/[facility] Work Phone: Radiation Oncology Comment on above: Malignant neoplasm o f prostate (HCC) Start: 03-24-2022 End: 03-24-2022 Patient encounter procedure Genoveva Nazario MD Work Phone: Radiation Oncology Comment on above: Malignant neoplasm o f prostate (HCC) (Primary Dx) Start: 03-18-2022 Telephone encounter Genoveva Nazario MD Work Phone: Radiation Oncology Comment on above: Orders Start: 03-18-2022 End: 03-18-2022 Patient encounter procedure Genoveva Nazario MD Work Phone: Radiation Oncology Comment on above: Malignant neoplasm o f prostate (HCC) (Primary Dx) Start: 03-13-2022 End: 03-14-[address] HOSEA OLIVA . Facility: Start: 03-12-2022 Patient encounter procedure Genoveva Nazario MD Work Phone: [employer] Start: 03-12-2022 Radiation Oncology Note Genoveva Nazario MD Work Phone: Radiation Oncology Comment on above: Treatment Planning Start: 03-12-2022 Social Work Constance BROOKSW Hematolo gy/Oncology Start: 03-04-2022 Telephone encounter Constance BROOKSW H ematology/Oncology Comment on above: Social Work Services Start: 03-03-2022 End: 03-03-2022 Patient encounter procedure Genoveva Nazario MD Work Phone: Radiation Oncology Comment on above: Malignant neoplasm o f prostate (HCC) (Primary Dx) Start: 02-25-2022 Telephone encounter Genoveva Nazario MD Work Phone: Radiation Oncology Comment on above: Patient Update; Appo intment Start: 02-13-2022 ambulatory Facility:1 [id number] Start: 02-13-2022 End: 02-13-2022 Patient encounter procedure Zeinab Justice [facility] Start: 02-11-2022 End: 02-11-[address] HOSEA OLIVA . Facility:[facility] Start: 02-09-2022 Encounter for preprocedural laboratory examination DR HOSEA OLIVA . [facility] Start: 02-07-2022 Telephone encounter Genoveva Nazario MD Work Phone: Radiation Oncology Comment on above: Patient Update Start: 02-07-2022 End: 02-08-[address] HOSEA OLIVA . Facility:[facility] Start: 02-07-2022 End: 02-08-2022 Encounter for preprocedural laboratory examination DR HOSEA OLIVA . Facility:[facility] Start: 01-31-[address] HOSEA OLIVA . Faci lity:[facility]1 Start: 01-30-2022 End: 01-31-2022 ambulatory THEO VIVIAN Facility:[facility] Start: 01-23-2022 End: 01-24-2022 ambulatory LOPEZ HOBBS . Facility:[facility] Start: 01-07-2022 End: 01-07-[address] HOSEA OLIVA . Facility:[facility] Start: 12-26-2021 End: 12-27-2021 ambulatory LOPEZ HOBBS . Facility:[facility] Start: 12-18-2021 Telephone encounter Genoveva Nazario MD Work Phone: Radiation Oncology Comment on above: Patient Update Start: 12-17-2021 End: 12-17-[address] HOSEA OLIVA . Facility:[facility] Start: 12-12-2021 End: 12-13-2021 ambulatory LOPEZ HOBBS . Facility:[facility] Start: 12-10-2021 End: 12-10-2021 Patient encounter procedure Genoveva Nazario MD Work Phone: Radiation Oncology Comment on above: Malignant neoplasm o f prostate (HCC) (Primary Dx) Start: 11-04-2021 End: 11-04-2021 Patient encounter procedure Barbara JOHNSTON [facility] Start: 10-24-2021 End: 10-24-2021 ambulatory Theo Vivian Other [facility] [employer] Other Start: 10-24-2021 Office outpatient ne w 45 minutes Theo Vivian [facility] Procedures Date Procedure Procedure Detail Performing Clinician Start: 08-18-2023 Ecg routine ecg w/le ast 12 lds w/i&r Chaim Grayson DO Work Phone: Start: 07-08-2023 FOLLOW UP IN CARDIOLOGY CHAIM GRAYSON Start: 06-18-2023 NUCLEAR STRESS TEST NGOZI GRAYSON Start: 06-18-2023 Cv strs tst xers&/or rx [...] Endarterectomy CLAIRE Robins Procedure on back Barbara DAVE ROWE Plan of Treatment Date Care Activity Detail Author Start: 06-10-2026 Diabetes Screening Diabetes Screening [facility] Start: 08-18-2024 End: 08-18-2024 Patient encounter procedure 08/18/2024 10:00 AM EDT Office Visit [facility] [address] [place] [phone] Chaim Garyson DO [address] [place] [address] [facility] Start: 06-10-2024 Creatinine measurement Serum Creatinine [facility] Start: 09-18-2023 ambulatory Ambulatory Facility:[facility] Start: 08-18-2023 End: 08-18-2023 Patient encounter procedure 08/18/2023 11:10 AM EDT Office Visit [facility] [address] [place] [phone] Chaim Grayson DO [address] [place] [address] [facility] Start: 07-08-2023 End: 07-08-2023 Clinical Support 07/08/2023 10:30 AM EST Clinical Support [facility] [address] [phone] [facility] Start: 06-04-2023 End: 06-04-2024 Alanine aminotransferase [Enzymatic activity/volume] in Serum or Plasma by With P-5'-P Alanine Aminotransferase Lab Routine Hypertension, unspecified type Bilateral carotid artery disease, unspecified type (CMS/HCC) Expected: 06/04/2023 (Approximate), Expires: 06/04/2024 [facility] Work Phone: Comment on above: Expected: 06/04/2023 (Approximate), Expi res: 06/04/2024 Start: 06-04-2023 End: 06-04-2024 Aspartate aminotransferase [Enzymatic activity/volume] in Serum or Plasma by With P-5'-P Aspartate Aminotransferase Lab Routine Hypertension, unspecified type Bilateral carotid artery disease, unspecified type (CMS/HCC) Expected: 06/04/2023 (Approximate), Expires: 06/04/2024 [facility] Work Phone: Comment on above: Expected: 06/04/2023 (Approximate), Expi res: 06/04/2024 Start: 06-04-2023 End: 06-04-2024 Basic metabolic 2000 panel - Serum or Plasma Basic Metabolic Panel Lab Routine Hypertension, unspecified type Mixed hyperlipidemia Expected: 06/04/2023 (Approximate), Expires: 06/04/2024 [facility] Work Phone: Comment on above: Expected: 06/04/2023 (Approximate), Expi res: 06/04/2024 Start: 06-04-2023 End: 06-04-2024 Lipid 1996 panel - Serum or Plasma Lipid Panel Lab Routine Mixed hyperlipidemia Expected: 06/04/2023 (Approximate), Expires: 06/04/2024 [facility] Work Phone: Comment on above: Expected: 06/04/2023 (Approximate), Expi res: 06/04/2024 Start: 06-04-2023 End: 06-04-2025 NM Heart Perfusion W stress and W radionuclide IV Nuclear Stress Test Cardiac Nuclear Medicine Routine Hypertension, unspecified type Bilateral carotid artery disease, unspecified type (CMS/HCC) Chest pressure Expected: 06/04/2023 (Approximate), Expires: 06/04/2025 [facility] Service Area Work Phone: Comment on above: Expected: 06/04/2023 (Approximate), Expi res: 06/04/2025 Start: 06-01-2023 Advance Directive Discussion Advance Directive Discussion [facility] Start: 06-01-2023 Depression Assessment Depression Assessment [facility] Start: 05-20-2023 End: 07-20-2023 Prostate specific Ag [Mass/volume] in Serum or Plasma PSA/PROSTSPECAG DIAG Lab Routine History of prostate cancer Expected: 05/20/2023, Expires: 07/20/2023 [facility] Work Phone: Comment on above: Expected: 05/20/2023, Expires: Start: 03-27-2023 Complete blood count Hemoglobin/Hematocrit [facility] Start: 03-27-2023 HEMOGLOBIN/HEMATOCRIT HEMOGLOBIN/HEMATOCRIT [facility] Start: 03-23-2023 [facility] Start: 03-09-2023 Bacteria identified in Urine by Culture [facility] Start: 03-05-2023 Pulse volume recorder plethysmography [facility] Start: 02-20-2023 End: 02-20-2023 [facility] Start: 01-30-2023 Covid-19 Vaccine ( season) Covid-19 Vaccine () [facility] Start: 01-30-2023 Influenza vaccination [facility] Start: 06-03-2022 End: 08-03-2022 Bacteria identified in Urine by Culture URINE CULTURE Microbiology Routine Hematuria, unspecified type Malignant neoplasm of prostate (HCC) Expected: 06/03/2022 (Approximate), Expires: 08/03/2022 [facility] Work Phone: Comment on above: Expected: 06/03/2022 (Approximate), Expi res: 08/03/2022 Start: 06-03-2022 End: 08-03-2022 UA DIP B/O UA DIP B/O Lab Routine Hematuria, unspecified type Malignant neoplasm of prostate (HCC) Expected: 06/03/2022 (Approximate), Expires: 08/03/2022 [facility] Work Phone: Comment on above: Expected: 06/03/2022 (Approximate), Expi res: 08/03/2022 Start: 06-01-2022 ADVANCE DIRECTIVE DISCUSSION ADVANCE DIRECTIVE DISCUSSION [facility] Start: 06-01-2022 DEPRESSION ASSESSMENT DEPRESSION ASSESSMENT [facility] Start: 04-21-2022 End: 06-21-2022 Prostate specific Ag [Mass/volume] in Serum or Plasma PSA/PROSTSPECAG DIAG Lab Routine Malignant neoplasm of prostate (HCC) Expected: 04/21/2022, Expires: 06/21/2022 [facility] Work Phone: Comment on above: Expected: 04/21/2022, Expires: 3 Start: 03-27-2022 End: 03-18-2023 CBC W Auto Differential panel - Blood CBC + DIFF Lab Routine Malignant neoplasm of prostate (HCC) Expected: 03/27/2022, Expires: 03/18/2023 [facility] Work Phone: Comment on above: Expected: 03/27/2022, Expires: 3 Start: 01-30-2022 Influenza vaccination INFLUENZA (#1) [facility] Start: 06-01-2021 ADVANCE DIRECTIVE DISCUSSION ADVANCE DIRECTIVE DISCUSSION [facility] Start: 06-01-2021 DEPRESSION ASSESSMENT DEPRESSION ASSESSMENT [facility] Start: 12-23-2020 COVID-19 VACCINE (3 - Booster for Moderna series) COVID-19 VACCINE (3 - Booster for Moderna series) [facility] Start: 09-20-2020 COVID-19 VACCINE (3 - Booster for Moderna series) COVID-19 VACCINE (3 - Booster for Moderna series) [facility] Start: 09-20-2020 COVID-19 VACCINE (3 - Moderna series) COVID-19 VACCINE (3 - Moderna series) [facility] Start: 09-20-2020 COVID-19 VACCINE (4 - Booster) COVID-19 VACCINE (4 - Booster) [facility] Start: 09-20-2020 COVID-19 Vaccine (4 - Moderna series) COVID-19 Vaccine (4 - Moderna series) [facility] Start: 2005 RSV Vaccine (1 - 1-dose 60+ series) RSV Vaccine (1 - 1-dose 60+ series) [facility] Start: 1995 Influenza vaccination LUNG CANCER SCREENING [facility] Start: 1995 Screening for malignant neoplasm of lung Lung Cancer Screening [facility] Start: 1995 SHINGRIX VACCINE (1 of 2) SHINGRIX VACCINE (1 of 2) [facility] Start: 1995 Zoster Vaccines (1 of 2) Zoster Vaccines (1 of 2) [facility] Start: 1990 DIABETES SCREEN DIABETES SCREEN [facility] Start: 1990 Diabetes Screening Diabetes Screening [facility] Start: 1967 DTaP/Tdap/Td Vaccines (1 - Tdap) DTaP/Tdap/Td Vaccines (1 - Tdap) [facility] Start: 1964 Urine microalbumin profile [facility] Start: 1963 ANNUAL PCP TEAM CHRONIC DISEASE VISIT ANNUAL PCP TEAM CHRONIC DISEASE VISIT [facility] Start: 1963 Creatinine measurement Serum Creatinine [facility] Start: 1963 HEPATITIS C SCREENING HEPATITIS C SCREENING [facility] Start: 1963 Hepatitis C screening Hepatitis C Screening [facility] Start: 1963 SERUM CREATININE SERUM CREATININE [facility] Start: 1957 Adult depression screening assessment DEPRESSION SCREENING [facility] Start: 1951 Pneumococcal Vaccine: 65+ (1 - PCV) Pneumococcal Vaccine: 65+ (1 - PCV) [facility] Start: 1951 Pneumococcal Vaccine: 65+ (1 of 2 - PCV) Pneumococcal Vaccine: 65+ (1 of 2 - PCV) [facility] Start: 1951 Pneumococcal Vaccine: 65+ Years (1 - PCV) Pneumococcal Vaccine: 65+ Years (1 - PCV) [facility] Start: 1951 PNEUMOCOCCAL: 65+ (1 - PCV) PNEUMOCOCCAL: 65+ (1 - PCV) [facility] Start: 1945 Lipid panel Lipid Panel [facility] Start: 1945 Medicare Annual Wellness Visit Medicare Annual Wellness Visit (AWV) [facility] CT SIM PLANNING RADI ATION ONCOLOGY CT SIM PLANNING RADIATION ONCOLOGY Radiology Routine Malignant neoplasm of prostate (HCC) Ordered: 03/03/2022 [facility] Work Phone: Comment on above: Ordered: 03/03/2022 End: 12-19-2023 Mri spinal canal lumbar w/o & w/contr matrl MRI LUMBAR SPINE WO/W IVCON Radiology Routine Spinal stenosis of lumbar region, unspecified whether neurogenic claudication present 1 Occurrences starting 11/19/2022 until 12/19/2023 [facility] Work Phone: Comment on above: 1 Occurrences starting 11/19/2022 until 12/19/2023 End: 12-21-2023 Mri spinal canal lumbar w/o & w/contr matrl MRI LUMBAR SPINE WO/W IVCON Radiology Routine Spinal stenosis of lumbar region without neurogenic claudication 1 Occurrences starting 11/21/2022 until 12/21/2023 [facility] Work Phone: Comment on above: 1 Occurrences starting 11/21/2022 until 12/21/2023 End: 02-05-2024 Mri spinal canal lumbar w/o & w/contr matrl MRI LUMBAR SPINE WO/W IVCON Radiology Routine Spinal stenosis of lumbar region, unspecified whether neurogenic claudication present 1 Occurrences starting 01/06/2023 until 02/05/2024 [facility] Work Phone: Comment on above: 1 Occurrences starting 01/06/2023 until 02/05/2024 Patient Education [facility] Work Phone: Patient referral [facility] Work Phone: [facility] Immunizations Immunization Date Immunization Notes Care Provider Fernanda adkins 07-26-2020 SARS-CoV-2 (COVID-19 ) [id number] vaccine Barbara JOHNSTON [facility] 06-28-2020 SARS-CoV-2 (COVID-19 ) mRNA-1273 vaccine Barbara JOHNSTON [facility] 06-25-2020 COVID-19 mRNA-1273 (Moderna) MD Shaikh Storm Work Phone: [facility] NEGATED: Highlighted row has not occurred!04-21-2023 influenza virus vaccine, unspecified formulation CLAIRE BRITNI [facility] Payers Date Payer Category Payer Unknown [id number] 2022 Private Health Insurance [id number] 2021 Medicare HUMANA MEDICARE HUMANA GOLD PLUS [id number] 2021-Present [id number] [place] [phone] O [id number] .[id number] 2021 Medicare [id number] 1959 Private Health Insurance [id number] 2.16.840.1.687034.19 1959 Self-pay [id number] 1945 Unknown [id number] 2.16.840.1.221078.3.579.2 .356 1945 Unknown [id number] 2.16.840.1.440624.3.579.2 .593 1945 Unknown [id number] 2.16.840.1.929425.3.579.2 .593 1945 Unknown [id number] 2.16.840.1.387117.3.579.2 .593 1945 Unknown [id number] 2.16.840.1.295916.3.579.2 .593 1945 Unknown [id number] 2.16.840.1.871801.3.579.2 .593 1945 Unknown [id number] 2.16.840.1.287547.3.579.2 .593 1945 Unknown [id number] 2.16.840.1.537117.3.579.2 .593 1945 Unknown [id number] 2.16.840.1.381533.3.579.2 .593 1945 Unknown [id number] 2.16.840.1.764488.3.579.2 .593 1945 Unknown [id number] 2.16.840.1.310875.3.579.2 .593 1945 Unknown [id number] 2.16.840.1.266574.3.579.2 .593 1945 Unknown [id number] 2.16.840.1.932112.3.579.2 .593 1945 Unknown [id number] 2.16.840.1.290463.3.579.2 .593 1945 Unknown [id number] 2.16.840.1.123478.3.579.2 .593 1945 Unknown [id number] 2.16.840.1.794715.3.579.2 .1246 1945 Unknown [id number] 2.16.840.1.601149.3.579.2 .1246 1945 Unknown [id number] 2.16.840.1.174427.3.579.2 .1246 1945 Unknown [id number] 2.16.840.1.764983.3.579.2 .1246 1945 Unknown [id number] 2.16.840.1.706448.3.579.2 .1246 1945 Unknown [id number] 2.16.840.1.444520.3.579.2 .1259 1945 Unknown [id number] 2.16.840.1.339278.3.579.2 .1259 1945 Unknown [id number] 2.16.840.1.664924.3.579.2 .124 1945 Unknown [id number] 2.16.840.1.235631.3.579.2 .124 1945 Unknown [id number] 2.16.840.1.032181.3.579.2 .1945 Unknown [id number] 2.16.840.1.590550.3.579.2 .1945 Unknown [id number] 2.16.840.1.386214.3.579.2 .1945 Unknown [id number] 2.16.840.1.222506.3.579.2 .1945 Unknown [id number] 2.16.840.1.785902.3.579.2 .1945 Unknown [id number] 2.16.840.1.924951.3.579.2 .72 1945 Unknown [id number]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 Nazario M.D. / DELIA :35 PM documented in this encounterHolzer Hospital11-21-2022 History of Present illness Narrative* Genoveva Nazario MD - 04/21/2022 3:23 PM EST genoveva Radiation Oncology - On Treatment Review (OTR) [...] discussed and arranged after completion of treatment. Genoveva Nazario MD documented in this encounterHolzer Hospital11-14-2022 History of Present illness Narrative* Genoveva Nazario MD - 04/14/2022 3:05 PM EST Radiation Oncology - On Treatment Review (OTR) Note PATIENT NAME: Yesenia Broussard PATIENT DIAGNOSIS: Prostate adenocarcinoma, initial PSA 9.95, biopsy Garrett score 3 + 4 = 7 (grade [...] and imaging reviewed. Continue radiation as outlined. Genoveva Nazario MD documented in this encounterHolzer Hospital11-07-2022 History of Present illness Narrative* Genoveva Nazario MD - 04/07/2022 11:03 AM EST [...] and imaging reviewed. Continue radiation as outlined. Genoveva Nazario MD documented in this encounterHolzer Hospital10-31-2022 History of Present illness Narrative* Genoveva Nazario MD - 03/31/2022 3:29 PM EDT [...] and imaging reviewed. Continue radiation as outlined. Genoveva Nazario MD documented in this [facility]10-31-2022 History of Present illness Narrative* STEPHANIE Lange - 03/31/2022 9:35 AM EDT SOCIAL WORK FOLLOW UP NOTE: [facility] Date of service:03/21/22 TOPICS ADDRESSED: community resources PLAN: Continue follow up as needed Assigned SW listed in Care Team tab: Yes SW completed and faxed a mileage reimbursement form on the Patient's behalf to [facility] for the month of March 2022. JENNIE Lange documented in this [facility]10-27-2022 Nurse Note* Livier Barrera RN - 03/27/2022 [...] assist. Livier Barrera RN documented in this [facility]10-24-2022 History of Present illness Narrative* Genoveva Nazario MD - 03/24/2022 4:00 PM EDT [...] and imaging reviewed. Continue radiation as outlined. Genoveva Nazario MD documented in this encounterHolzer Hospital10-18-2022 History of Present illness Narrative* Genoveva Nazario MD - 03/18/2022 3:58 PM EDT Radiation Oncology - On Treatment Review (OTR) Note PATIENT NAME: Yesenia Broussard PATIENT DIAGNOSIS: Prostate adenocarcinoma, initial PSA 9.95, biopsy Garrett score 3 + 4 = 7 (grade [...] First treatment given. Continue radiation as prescribed. Gneoveva Nazario MD documented in this encounterHolzer Hospital10-18-2022 Miscellaneous Notes* Telephone Encounter - Dinae Parada LPN - 03/18/2022 8:31 AM EDT CBC order the second week during radiation is pending your approval. Diane Parada LPN documented in this encounterHolzer Hospital10-13-2022 NoteCONSULTATION PROCEDURE DATE: 03/13/2022 PREOPERATIVE DIAGNOSIS: Bilateral [...] the procedure well with no overt complications.[facility] [id number] NoteCONSULTATION CONSULTATION DATE: 03/13/2022 HISTORY OF PRESENT [...] current medications include Lyrica 75 mg t.i.d., [place] 5/325 t.i. d., baclofen 10 mg q.h.s. [...] and will return in six weeks' time.[facility] [id number] History of Present illness Narrative* STEPHANIE Lange [...] as appropriate. JENNIE Lange documented in this encounterHolzer Hospital10-12-2022 History of Present illness Narrative* G Jose Nazario MD - 03/12/2022 12:00 AM EDT YESENIA BROUSSARD [id number] 03/12/2022 [facility] Department of Radiation Oncology Treatment Planning [...] Nazario M.D. 21:57 PM documented in this encounterHolzer Hospital10-04-2022 Miscellaneous Notes* Telephone Encounter - STEPHANIE Lange [...] to maintain contact with this SW if/when [facility] medical bills arrive. SW also talked about community services that offer financial support ([facility] [facility]) for mileage reimbursement. is agreeable to meet with this SW after the Patient's next appointment on 03/12/22. was appreciative of the call. SW will remain available and will follow up as appropriate. JENNIE Lange documented in this encounterHolzer Hospital10-03-2022 History of Present illness Narrative* Genoveva Nazario MD - 03/03/2022 10:42 AM EDT Unable to complete simulation due to anxiety related to claustrophobia. Prescription for Valium given. We will reschedule. documented in this encounterHolzer Hospital09-27-2022 Miscellaneous Notes* Telephone Encounter - Criselda Mcpherson Sec - 02/25/2022 2:09 PM EDT Patient is scheduled for Thursday patient could not come any other day due to being out of town at the end of the week 8:00AM sim thursday * Telephone Encounter - Criselda Haas - 02/25/2022 9:23 AM EDT Called patient and left message to r's appointment * Telephone Encounter - Diane Parada LPN - 02/25/2022 9:17 AM EDT Nena, pt's , left a message stating Dexter isn't going to make it in for his SIM today. He had cataract surgery yesterday and isn't feeling well. She is planning to take him to the eye doctor this a.mSusan Robles: Will you please call and reschedule SIM? Thanks Diane Parada LPN documented in this encounterHolzer Hospital09-12-2022 Miscellaneous Notes* Telephone Encounter - Livier Cook [...] Thanks Maddy Waite MA documented in this encounterHolzer Hospital08-25-2022 NoteCONSULTATION CONSULTATION DATE: 01/23/2022 HISTORY OF PRESENT [...] well enough that he went to the [employer] to watch a tractor pull. Sitting on [...] ice. Medications include baclofen 10 mg q.h.s., [place] 5/325 t.i.d., Lyrica 75 mg b.i.d. Patient's [...] followed up in the clinic post procedure.[facility] [id number] Miscellaneous Notes* Telephone Encounter - Diane Parada [...] Diane Parada LPN * Telephone Encounter - Genoveva Nazario MD - 12/30/2021 7:36 AM EDT [...] , called to notify Dr. Nazario that Dextre is receiving steroid injections for his back. [...] advise. Diane Parada LPN documented in this encounterHolzer Hospital07-28-2022 NoteCONSULTATION CONSULTATION DATE: 12/26/2021 HISTORY OF PRESENT [...] His medications include baclofen 10 mg q.h.s., [place] 5/325 t.i.d. and Lyrica 50 mg b.i.d. [...] and he is in agreement to this.[facility] [id number] Nurse Note* Diane Parada LPN - 12/10/2021 9:20 AM EDT AUA= 10 documented in this encounterHolzer Hospital07-12-2022 History of Present illness Narrative* Genoveva Nazario MD - 12/10/2021 9:00 AM EDT [...] underwent TURP on 06/06/2021. Pathology demonstrating adenocarcinoma, Nicola 7 (3+4), involving 21 to 30% of submitted tissue. No evidence of intraductal component, or LVI. 6 to 10% percentage of Garrett pattern 4 Repeat PSA 11/04/2021 3.73. MRI [...] ASSESSMENT/PLAN: Prostate adenocarcinoma, initial PSA 9.95, biopsy Garrett score 3 + 4 = 7 (grade [...] further discussion pending neurosurgical evaluation. Signed by: Genoveva Nazario MD cc: Shaikh Dotty [address] [address] Barbara Johnston [address] [facility] [address] documented in this encounterHolzer Hospital06-06-2022 Evaluation + Plan note Diagnostic Tests Pending * PSA Total 11/04/21 [facility] 06-06-2022 Hospital Discharge instructions Patient Education [...] 05/18/2006 Document Revised: 02/04/2019 Document Reviewed: 04/17/2017 [employer] Patient Education 2020 [employer]. 11/04/2021 10:39:39 Benign Prostatic Hyperplasia Benign Prostatic [...] urethra. Follow these instructions at home: Take zxon-vbc-iwhfbnt and prescription medicines only as told by [...] 05/18/2006 Document Revised: 04/12/2019 Document Reviewed: 06/22/2017 [employer] Patient Education 2020 [employer]. 11/04/2021 10:39:34 Prostate Cancer Prostate Cancer The [...] who: Are older than age 65. Are -Dominican. Are obese. Have a family history of [...] cells. Follow these instructions at home: Take hlgo-vso-tmtrocc and prescription medicines only as told by [...] 05/18/2006 Document Revised: 04/30/2018 Document Reviewed: 01/26/2017 [employer] Patient Education [employer]. Follow Up Care 07/01/2021 09:43:21 With:PRESTON MAK, Barbara Warner, URL Address: [facility] [address], [place] [address]- [phone] When: Unknown Comments:Will schedule MRI of prostate w/wo and Perineal prostate biopsy. [facility] 05-26-2022 Evaluation note* Encounter Date Diagnosis [...] statins. Monitor LFTs and lipid profile periodically. [employer] Other Evaluation + Plan note Future Appointments Appointment Date:01/06/2023 09:15:00 AM Scheduled Provider:CLAIRE JAMES PA-C Location:[facility] Appointment Type:URO Office Visit [facility] evaluation + Plan note Future Appointments Appointment Date:04/21/2023 08:30:00 AM Scheduled Provider:CLAIRE JAMES PA-C Location:[facility] Appointment Type:URO Office Visit [facility] evaluation + Plan note Future Appointments Appointment Date:07/07/2023 09:00:00 AM Scheduled Provider:CLAIRE JMAES PA-C Location:[facility] Appointment Type:URO Office Visit Diagnostic Tests Pending * Electrolyte Panel 04/21/23 [facility] evaluation + Plan note Future Appointments Appointment Date:07/07/2023 09:00:00 AM Scheduled Provider:CLAIRE JAMES PA-C Location:[facility] Appointment Type:URO Office Visit Diagnostic Tests Pending * Urine Culture 04/21/23 [facility] note* Diagnosis Malignant neoplasm of prostate (HCC)- Primary Malignant neoplasm of prostate [facility] Malignant neoplasm of prostate (HCC)- Primary Malignant neoplasm of prostate [facility] Diagnosis Malignant neoplasm of prostate (HCC)- Primary Malignant neoplasm of prostate [facility]* Diagnosis Malignant neoplasm of prostate (HCC)- Primary Malignant neoplasm of prostate [facility]* Diagnosis Malignant neoplasm of prostate (HCC) Malignant neoplasm of prostate [facility]* Diagnosis Malignant neoplasm of prostate (HCC)- Primary Malignant neoplasm of prostate [facility]* Diagnosis Malignant neoplasm of prostate (HCC)- Primary Malignant neoplasm of prostate [facility]* Diagnosis Malignant neoplasm of prostate (HCC)- Primary Malignant neoplasm of prostate [facility] noteNo assessment information availableAdams County Regional [facility] Work Phone: Evaluation note* Diagnosis Hematuria, unspecified type- Primary Malignant neoplasm of prostate (HCC) Malignant neoplasm of prostate documented in this encounter [facility] note* Diagnosis Urinary tract infection without hematuria, site unspecified- Primary documented in this encounter [facility] note* Diagnosis History of prostate cancer- Primary Personal history of malignant neoplasm of prostate Spinal arthritis Spondylosis of unspecified site without mention of myelopathy Spinal stenosis of lumbar region, unspecified whether neurogenic claudication present documented in this encounter [facility] note* Diagnosis Spinal stenosis of lumbar region without neurogenic claudication- Primary Spinal stenosis, lumbar region, without neurogenic claudication documented in this encounter [facility] note* Diagnosis Spinal stenosis of lumbar region, unspecified whether neurogenic claudication present- Primary documented in this encounter [facility] note* Diagnosis Spinal stenosis, lumbar region with neurogenic claudication- Primary Foraminal stenosis of lumbar region Spinal stenosis, lumbar region, without neurogenic claudication Peripheral artery disease (HCC) Peripheral vascular disease, unspecified Prostate cancer (HCC) Malignant neoplasm of prostate documented in this encounter [facility] noteNo InformationNort [employer] Other Evaluation note* Diagnosis Spinal stenosis, lumbar region with neurogenic claudication- Primary Foraminal stenosis of lumbar region Spinal stenosis, lumbar region, without neurogenic claudication documented in this encounter [facility] note* Diagnosis Spondylolisthesis of lumbar region- Primary Acquired spondylolisthesis documented in this encounter [facility] note* Diagnosis Hypertension, unspecified type Mixed hyperlipidemia Bilateral carotid artery disease, unspecified type (CMS/HCC) History of MA (myocardial infarction) Old myocardial infarction BMI 28.0-28.9,adult ASHD (arteriosclerotic heart disease) Coronary atherosclerosis of unspecified type of vessel, hopi or graft PVD (peripheral vascular disease) (CMS/HCC) Unspecified peripheral vascular disease Smoker Tobacco use disorder Chest pain, unspecified type documented in this encounter [facility] Work Phone: History general Narrative - Reported* Type Description Date Medical History CKD (CHRONIC KIDNEY DISEASE) STA GE III Medical History CLAUDICATION Medical History HYPERLIPIDEMIA Medical History BPH Medical History ANXIETY Medical History CORONARY ATHEROSCLEROSIS Medical History PERIPHERAL ARTERIAL DISEASE Medical History HYPERTENSION Medical History PROSTATE CANCER Surgical History BILATERAL CAROTID ENDARTERECTOM 2011 Surgical History CORONARY STENT IN [facility] Surgical History PROSTATE SURGERY Hospitalization History SEE ABOVE [employer] Other History general Narrative - Reported* Type [...] ANGIOPLASTY LT 03/2023 Hospitalization History SEE ABOVE [employer] Other Hospital course Narrative No data available for this section [facility] Discharge instructions No data available for this section [facility] No data available for this section [facility] CenterReason for referral (narrative)* Consultation (Routine) - Authorized Specialty Diagnoses / Procedures Referred By Contac t Referred To Contact Cardiology Diagnoses Hypertension, unspecified type Mixed hyperlipidemia Bilateral carotid artery disease, unspecified type (CMS/HCC) Procedures Follow Up In Cardiology Chaim Grasyon DO [address] [facility] [address], [address] [address] Chaim Grayson DO [address] [facility], [address] [place] [address] Referral ID Status Reason Start Date Expiration Date V isits Requested Visits Authorized [id number] Authorized 06/04/2023 06/03/2024 1 1 * Cardiovascular (Routine) - Pending Review Specialty Diagnoses / Procedures Referred By Contac t Referred To Contact Diagnoses Mixed hyperlipidemia Bilateral carotid artery disease, unspecified type (CMS/HCC) Procedures ECG 12 Lead Chaim Grayson DO [facility] [facility], [address] [address] Referral ID Status Reason Start Date Expiration Date V isits Requested Visits Authorized [id number] Pending Review 06/04/2023 06/03/2024 1 1 * Consultation (Routine) - Authorized Specialty Diagnoses / Procedures Referred By Contdemario staton Referred To Contact Cardiology Diagnoses Hypertension, unspecified type Bilateral carotid artery disease, unspecified type (CMS/HCC) Procedures Follow Up In Cardiology Chaim Grayson DO [address] [facility] [address], [address] [address] Referral ID Status Reason Start Date Expiration Date V isits Requested Visits Authorized [id number] Authorized 06/04/2023 06/03/2024 1 1 * Cardiac Stress Testing (Routine) - Pending Review Specialty Diagnoses / Procedures Referred By Renata staton Referred To Contact Radiology Diagnoses Hypertension, unspecified type Bilateral carotid artery disease, unspecified type (CMS/HCC) Chest pressure Procedures Nuclear Stress Test CHG MYOCARDIAL SPECT MULTIPLE STUDIES CHG MYOCARDIAL SPECT SINGLE STUDY AT REST OR STRESS Chaim Grayson DO [address] [facility] [address], [address] [address] Referral ID Status Reason Start Date Expiration Date V isits Requested Visits Authorized [id number] Pending Review 06/04/2023 06/03/2024 5 5 [facility] Work Phone: Summary Purpose Family History Relationship Condition Age at Onset Recorded Date/T yudi father Parkinson's disease Unknown Diabetes mellitus Unknown Not Specified Heart disease Unknown Advance Directives Advance Directive Response Recorded Date/ Time Advance [...] By Contac t Referred To Contact Diagnoses Bilateral carotid artery disease, unspecified type ([facility]) History of MA (myocardial infarction) ASHD (arteriosclerotic heart disease) PVD (peripheral vascular disease) ([facility]) Chest pain, unspecified type Procedures ECG 12 Lead Chaim Grayson, [place] [address], [address] [address] Referral ID Status Reason Start Date Expiration Date V isits Requested Visits Authorized [id number] Authorized 08/18/2023 08/17/2024 1 1 Specialty Diagnoses / Procedures Referred By Contac t Referred To Contact Cardiology Diagnoses Bilateral carotid artery disease, unspecified type ([facility]) Procedures Follow Up In Cardiology Chaim Grayson, [address], [address] [address] Chaim Grayson, [address], [address] [address] Referral ID Status Reason Start Date Expiration Date V isits Requested Visits Authorized [id number] Authorized 08/18/2023 08/17/2024 1 1 Specialty Diagnoses / Procedures Referred By Contac t Referred To Contact [facility] [place] Diagnoses Spondylolisthesis of lumbar region Procedures CONSULT TO [facility] ([facility]IC PAIN) OFFICE/OUTPATIENT [facility] 60 MINUTES Kodi Reynolds MD [address] [place] [address] Referral ID Status Reason Start Date Expiration Date Visits Requested Visits Authorized [id number] Pending Review PCP Requested Referral 06/12/2023 06/11/2024 1 1 Specialty Diagnoses / Procedures Referred By Contac t Referred To Contact Diagnoses Spinal stenosis, lumbar region with neurogenic claudication Foraminal stenosis of lumbar region Procedures CONSULT TO SPINE SURGERY OFFICE/OUTPATIENT [facility] 60-74 MINUTES Jose Nichols DO [address] [place] [address] Referral ID Status Reason Start Date Expiration Date Visits Requested Visits Authorized [id number] Pending Review PCP Requested Referral 05/18/2024 1 1 Specialty Diagnoses / Procedures Referred By Contac t Referred To Contact MR IMAGING Diagnoses Spinal stenosis of lumbar region, unspecified whether neurogenic claudication present Procedures MRI LUMBAR SPINE WO/W IVCON MRI SPINAL CANAL LUMBAR W/O & W/CONTR MATRL Genoveva Nazario MD [address] [place] [address] Mr Imaging Referral ID Status Reason Start Date Expiration Date Visits Requested Visits Authorized [id number] Pending Review Auto-Generat ed Referral 11/19/2022 12/19/2023 1 1 Specialty Diagnoses / Procedures Referred By Contac t Referred To Contact Neurosurgery Diagnoses Spinal arthritis Procedures CONSULT TO NEUROSURGERY OFFICE/OUTPATIENT [facility] 60-74 MINUTES Genoveva Nazario MD [address] [place] [address] Referral ID Status Reason Start Date Expiration Date Visits Requested Visits Authorized [id number] Pending Review PCP Requested Referral 11/18/2022 11/18/2023 [...] section and content) DATE CREATED AUTHOR 06/12/2021 [facility] DATE CREATED AUTHOR AUTHOR'S ORGANIZ ATION 03/27/2022 [facility] ical Center DATE CREATED AUTHOR AUTHOR'S ORGANIZ ATION 11/07/2022 [facility] DATE CREATED AUTHOR AUTHOR'S ORGANIZ ATION 01/06/2023 [facility] DATE CREATED AUTHOR AUTHOR'S ORGANIZ ATION 05/30/2023 [facility] DATE CREATED AUTHOR AUTHOR'S ORGANIZ ATION 06/15/2023 [facility] DATE CREATED AUTHOR AUTHOR'S ORGANIZ ATION 06/16/2023 [facility] DATE CREATED AUTHOR AUTHOR'S ORGANIZ ATION 06/29/2023 [facility] DATE CREATED AUTHOR AUTHOR'S ORGANIZ ATION 06/29/2023 [facility] EPIC DATE CREATED AUTHOR AUTHOR'S ORGANIZ ATION 07/13/2023 [facility] DATE CREATED AUTHOR AUTHOR'S ORGANIZ ATION 07/14/[address] [facility] DATE CREATED AUTHOR AUTHOR'S ORGANIZ ATION 08/17/2023 [facility] REASON FOR VISIT (unrecogniz ed section [...] Spinal arthritis Procedures CONSULT TO NEUROSURGERY OFFICE/OUTPATIENT [facility] 60-74 MINUTES Genoveva Nazario MD [address] [place] [address] [place] [address] Referral ID Status Reason Start Date Expiration Date Visits Requested Visits Authorized [id number] Pending Review PCP Requested Referral 11/18/2022 11/18/2023 1 1 Reason Comments Appointment Confirmation Reason Comments Establish Care [place] pvd HTN abn e kg Specialty Diagnoses / Procedures Referred By Contac t Referred To Contact Diagnoses Mixed hyperlipidemia Bilateral carotid artery disease, unspecified type (CMS/HCC) Procedures ECG 12 Lead Chaim Grayson, [address] [place] [address] [address], [place] [phone] Referral ID Status Reason Start Date Expiration Date V isits Requested Visits Authorized [id number] Pending Review 06/04/2023 06/03/2024 1 1 Reason Comments Low Back Pain New Patient Evaluation New Patient Specialty Diagnoses / Procedures Referred By Contac t Referred To Contact Radiology Diagnoses Hypertension, unspecified type Bilateral carotid artery disease, unspecified type (CMS/HCC) Chest pressure Procedures Nuclear Stress Test CHG MYOCARDIAL SPECT MULTIPLE STUDIES CHG MYOCARDIAL SPECT SINGLE STUDY AT REST OR STRESS Chaim Grayson, [address] [place] [address] 2, [place] [id number] Referral ID Status Reason Start Date Expiration Date V isits Requested Visits Authorized [id number] Authorized 06/04/2023 06/03/2024 5 5 Reason Comments Follow-up 1yr Specialty Diagnoses / Procedures Referred By Contac t Referred To Contact Cardiology Diagnoses Hypertension, unspecified type Mixed hyperlipidemia Bilateral carotid artery disease, unspecified type (CMS/HCC) Procedures Follow Up In Cardiology Chaim Grayson, [address] [place] [address] 2, [place] [phone] Chaim Grayson, [address], [place] [phone] Referral ID Status Reason Start Date Expiration Date V isits Requested Visits Authorized [id number] Authorized 06/04/2023 06/03/2024 1 1 Source Comments (unrecognize d section and content) In the event this informatio n is protected by the Federal Confidentiality of Alcohol and Drug Abuse Patient Records regulations: The Federal rules restrict any use of the information to criminally investigate or prosecute any alcohol or drug abuse patient.[facility] HospitalIn the event this information is protected by the Federal Confidentiality of Alcohol and Drug Abuse Patient Records regulations: The Federal rules restrict any use of the information to criminally investigate or prosecute any alcohol or drug abuse patient.[facility] HospitalIn the event this information is protected by the Federal Confidentiality of Alcohol and Drug Abuse Patient Records regulations: The Federal rules restrict any use of the information to criminally investigate or prosecute any alcohol or drug abuse patient.[facility] HospitalIn the event this information is protected by the Federal Confidentiality of Alcohol and Drug Abuse Patient Records regulations: The Federal rules restrict any use of the information to criminally investigate or prosecute any alcohol or drug abuse patient.[facility] HospitalIn the event this information is protected by the Federal Confidentiality of Alcohol and Drug Abuse Patient Records regulations: The Federal rules restrict any use of the information to criminally investigate or prosecute any alcohol or drug abuse patient.[facility] HospitalIn the event this information is protected by the Federal Confidentiality of Alcohol and Drug Abuse Patient Records regulations: The Federal rules restrict any use of the information to criminally investigate or prosecute any alcohol or drug abuse patient.[facility] HospitalIn the event this information is protected by the Federal Confidentiality of Alcohol and Drug Abuse Patient Records regulations: The Federal rules restrict any use of the information to criminally investigate or prosecute any alcohol or drug abuse patient.[facility] HospitalIn the event this information is protected by the Federal Confidentiality of Alcohol and Drug Abuse Patient Records regulations: The Federal rules restrict any use of the information to criminally investigate or prosecute any alcohol or drug abuse patient.[facility] HospitalIn the event this information is protected by the Federal Confidentiality of Alcohol and Drug Abuse Patient Records regulations: The Federal rules restrict any use of the information to criminally investigate or prosecute any alcohol or drug abuse patient.[facility] HospitalIn the event this information is protected by the Federal Confidentiality of Alcohol and Drug Abuse Patient Records regulations: The Federal rules restrict any use of the information to criminally investigate or prosecute any alcohol or drug abuse patient.[facility] HospitalIn the event this information is protected by the Federal Confidentiality of Alcohol and Drug Abuse Patient Records regulations: The Federal rules restrict any use of the information to criminally investigate or prosecute any alcohol or drug abuse patient.[facility] HospitalIn the event this information is protected by the Federal Confidentiality of Alcohol and Drug Abuse Patient Records regulations: The Federal rules restrict any use of the information to criminally investigate or prosecute any alcohol or drug abuse patient.[facility] HospitalIn the event this information is protected by the Federal Confidentiality of Alcohol and Drug Abuse Patient Records regulations: The Federal rules restrict any use of the information to criminally investigate or prosecute any alcohol or drug abuse patient.[facility] HospitalIn the event this information is protected by the Federal Confidentiality of Alcohol and Drug Abuse Patient Records regulations: The Federal rules restrict any use of the information to criminally investigate or prosecute any alcohol or drug abuse patient.[facility] HospitalIn the event this information is protected by the Federal Confidentiality of Alcohol and Drug Abuse Patient Records regulations: The Federal rules restrict any use of the information to criminally investigate or prosecute any alcohol or drug abuse patient.[facility] HospitalIn the event this information is protected by the Federal Confidentiality of Alcohol and Drug Abuse Patient Records regulations: The Federal rules restrict any use of the information to criminally investigate or prosecute any alcohol or drug abuse patient.[facility] HospitalIn the event this information is protected by the Federal Confidentiality of Alcohol and Drug Abuse Patient Records regulations: The Federal rules restrict any use of the information to criminally investigate or prosecute any alcohol or drug abuse patient.[facility] HospitalIn the event this information is protected by the Federal Confidentiality of Alcohol and Drug Abuse Patient Records regulations: The Federal rules restrict any use of the information to criminally investigate or prosecute any alcohol or drug abuse patient.[facility] HospitalIn the event this information is protected by the Federal Confidentiality of Alcohol and Drug Abuse Patient Records regulations: The Federal rules restrict any use of the information to criminally investigate or prosecute any alcohol or drug abuse patient.[facility] HospitalIn the event this information is protected by the Federal Confidentiality of Alcohol and Drug Abuse Patient Records regulations: The Federal rules restrict any use of the information to criminally investigate or prosecute any alcohol or drug abuse patient.[facility] HospitalIn the event this information is protected by the Federal Confidentiality of Alcohol and Drug Abuse Patient Records regulations: The Federal rules restrict any use of the information to criminally investigate or prosecute any alcohol or drug abuse patient.[facility] HospitalIn the event this information is protected by the Federal Confidentiality of Alcohol and Drug Abuse Patient Records regulations: The Federal rules restrict any use of the information to criminally investigate or prosecute any alcohol or drug abuse patient.[facility] HospitalIn the event this information is protected by the Federal Confidentiality of Alcohol and Drug Abuse Patient Records regulations: The Federal rules restrict any use of the information to criminally investigate or prosecute any alcohol or drug abuse patient.[facility] HospitalIn the event this information is protected by the Federal Confidentiality of Alcohol and Drug Abuse Patient Records regulations: The Federal rules restrict any use of the information to criminally investigate or prosecute any alcohol or drug abuse patient.[facility] HospitalIn the event this information is protected by the Federal Confidentiality of Alcohol and Drug Abuse Patient Records regulations: The Federal rules restrict any use of the information to criminally investigate or prosecute any alcohol or drug abuse patient.[facility] HospitalIn the event this information is protected by the Federal Confidentiality of Alcohol and Drug Abuse Patient Records regulations: The Federal rules restrict any use of the information to criminally investigate or prosecute any alcohol or drug abuse patient.[facility] HospitalIn the event this information is protected by the Federal Confidentiality of Alcohol and Drug Abuse Patient Records regulations: The Federal rules restrict any use of the information to criminally investigate or prosecute any alcohol or drug abuse patient.[facility] HospitalIn the event this information is protected by the Federal Confidentiality of Alcohol and Drug Abuse Patient Records regulations: The Federal rules restrict any use of the information to criminally investigate or prosecute any alcohol or drug abuse patient.[facility] HospitalIn the event this information is protected by the Federal Confidentiality of Alcohol and Drug Abuse Patient Records regulations: The Federal rules restrict any use of the information to criminally investigate or prosecute any alcohol or drug abuse patient.[facility] HospitalIn the event this information is protected by the Federal Confidentiality of Alcohol and Drug Abuse Patient Records regulations: The Federal rules restrict any use of the information to criminally investigate or prosecute any alcohol or drug abuse patient.[facility] HospitalIn the event this information is protected by the Federal Confidentiality of Alcohol and Drug Abuse Patient Records regulations: The Federal rules restrict any use of the information to criminally investigate or prosecute any alcohol or drug abuse patient.[facility] HospitalIn the event this information is protected by the Federal Confidentiality of Alcohol and Drug Abuse Patient Records regulations: The Federal rules restrict any use of the information to criminally investigate or prosecute any alcohol or drug abuse patient.[facility] HospitalIn the event this information is protected by the Federal Confidentiality of Alcohol and Drug Abuse Patient Records regulations: The Federal rules restrict any use of the information to criminally investigate or prosecute any alcohol or drug abuse patient.[facility] Care Teams (unrecognized sec tion and content) Team Status: Active Member Role Status Dates Shaikh Dotty MD Primary Care Provider Active Team Status: Inactive Member Role Status Dates Shaikh Dotty MD Primary Care Provider, Other Provid er Active Jennie Ferrera , VALENTIN-C Attending Provider Active Oil Painter Relationship Specialty Start Date End Date Shaikh Storm MD [address] [place] [address] PCP - General Primary Care 12/06/21 Barbara Johnston MD [address] [place] [address] Referring Urology 12/06/21 Oil Painter Relationship Specialty Start Date End Date Shaikh Storm MD [address] [place] [address] PCP - General Primary Care 12/06/21 Barbara Johnston MD [address] [place] [address] Referring Urology 12/06/21 Oil Painter Relationship Specialty Start Date End Date Shaikh Storm MD [address] [address] PCP - General Primary Care 12/06/21 Barbara Johnston MD [address] [place] [address] Referring Urology 12/06/21 Oil Painter Relationship Specialty Start Date End Date Shaikh Storm MD [address] [place] [address] PCP - General Primary Care 12/06/21 Barbara Johnston MD [address] [place] [address] Referring Urology 12/06/21 Oil Painter Relationship Specialty Start Date End Date Shaikh Storm MD [address] [address] PCP - General Primary Care 12/06/21 Barbara Johnston MD [address] [place] [address] Referring Urology 12/06/21 Constance Durand LSW [employer] 03/04/22 Oil Painter Relationship Specialty Start Date End Date Shaikh Storm MD [address] [address] PCP - General Primary Care 12/06/21 Barbara Johnston MD [address] [place] [address] Referring Urology 12/06/21 Constance Durand LSW [employer] 03/04/22 Oil Painter Relationship Specialty Start Date End Date Shaikh Storm MD [address] [place] [address] PCP - General Primary Care 12/06/21 Barbara Johnston MD [address] [place] [address] Referring Urology 12/06/21 Constance Durand LSW [employer] 03/04/22 Oil Painter Relationship Specialty Start Date End Date Shaikh Storm MD [address] [place] [address] PCP - General Primary Care 12/06/21 Barbara Johnston MD [address] [place] [address] Referring Urology 12/06/21 Constance Durand LSW [employer] 03/04/22 Oil Painter Relationship Specialty Start Date End Date Shaikh Storm MD [address] [address] PCP - General Primary Care 12/06/21 Barbara Johnston MD [address] [place] [address] Referring Urology 12/06/21 Constance Durand LSW [employer] 03/04/22 Oil Painter Relationship Specialty Start Date End Date Shaikh Storm MD [address] [place] [address] PCP - General Primary Care 12/06/21 Barbara Johnston MD [address] [place] [address] Referring Urology 12/06/21 Constance Durand LSW [employer] 03/04/22 Oil Painter Relationship Specialty Start Date End Date Shaikh Storm MD [address] [place] [address] PCP - General Primary Care 12/06/21 Barbara Johnston MD [address] [place] [address] Referring Urology 12/06/21 Constance Durand LSW [employer] 03/04/22 Oil Painter Relationship Specialty Start Date End Date Shaikh Storm MD [address] [place] [address] PCP - General Primary Care 12/06/21 Barbara Johnston MD [address] [place] [address] Referring Urology 12/06/21 Constance Druand LSW [employer] 03/04/22 Oil Painter Relationship Specialty Start Date End Date Shaikh Storm MD [address] [address] PCP - General Primary Care 12/06/21 Barbara Johnston MD [address] [place] [address] Referring Urology 12/06/21 Constance Durand LSW [employer] 03/04/22 Oil Painter Relationship Specialty Start Date End Date Shaikh Storm MD [address] [place] [address] PCP - General Primary Care 12/06/21 Barbara Johnston MD [address] [place] [address] Referring Urology 12/06/21 Constance Durand LSW [employer] 03/04/22 Oil Painter Relationship Specialty Start Date End Date Shaikh Storm MD [address] [address] PCP - General Primary Care 12/06/21 Barbara Johnston MD [address] [place] [address] Referring Urology 12/06/21 Constance Durand, [facility] [employer] 03/04/22 Team Status: Inactive Member Role Status Dates Shaikh Dotty MD Primary Care Provider Active Zeinab Justice MD Attending Provider Active Oil Painter Relationship Specialty Start Date End Date Shaikh Storm MD [address] [address] PCP - General Primary Care 12/06/21 Barbara Johnston MD [address] [place], [place] [address] Referring Urology 12/06/21 Constance Durand, [facility] [employer] 03/04/22 Team Status: Inactive Member Role Status Dates Shaikh Dotty MD Primary Care Provider Active Lyla Nazario MD Attending Provider Active Oil Painter Relationship Specialty Start Date End Date Shaikh Storm MD [address] [address] PCP - General Primary Care 12/06/21 Barbara Johnston MD [address] [place] [address] Referring Urology 12/06/21 Constance Durand [facility] [employer] 03/04/22 Oil Painter Relationship Specialty Start Date End Date Shaikh Storm MD [address] [address] PCP - General Primary Care 12/06/21 Barbara Johnston MD [address] [place] [address] Referring Urology 12/06/21 Constance Durand LSW [employer] 03/04/22 Oil Painter Relationship Specialty Start Date End Date Shaikh Storm MD [address] [address] PCP - General Primary Care 12/06/21 Barbara Johnston MD [address] [place] [address] Referring Urology 12/06/21 Constance Durand LSW [employer] 03/04/22 Oil Painter Relationship Specialty Start Date End Date Shaikh Storm MD [address] [place] [address] PCP - General Primary Care 12/06/21 Barbara Johnston MD [address] [place] [address] Referring Urology 12/06/21 Constance Durand LSW [employer] 03/04/22 Oil Painter Relationship Specialty Start Date End Date Shaikh Storm MD [address] [place] [address] PCP - General Primary Care 12/06/21 Barbara Johnston MD [address] [place] [address] Referring Urology 12/06/21 Constance Durand LSW [employer] 03/04/22 Oil Painter Relationship Specialty Start Date End Date Shaikh Storm MD [address] [address] PCP - General Primary Care 12/06/21 Barbara Johnston MD [address] [place] [address] Referring Urology 12/06/21 Constance Durand LSW [employer] 03/04/22 Oil Painter Relationship Specialty Start Date End Date Shaikh Storm MD [address] [address] PCP - General Primary Care 12/06/21 Barbara Johnston MD [address] [place] [address] Referring Urology 12/06/21 Constance Durand LSW [employer] 03/04/22 Oil Painter Relationship Specialty Start Date End Date Shaikh Storm MD [address] [address] PCP - General Primary Care 12/06/21 Barbara Johnston MD [address] [place] [address] Referring Urology 12/06/21 Constance Durand LSW [employer] 03/04/22 Oil Painter Relationship Specialty Start Date End Date Shaikh Storm MD [address] [place] [address] PCP - General Primary Care 12/06/21 Barbara Johnston MD [address] [place] [address] Referring Urology 12/06/21 Constance Durand LSW [employer] 03/04/22 Team Status: Inactive Member Role Status Steven Storm MD Primary Care Provider Active Temporary Anesthesiologist Attending Provider Active Oil Painter Relationship Specialty Start Date End Date Shaikh Storm MD [address] [place] [address] PCP - General Primary Care 12/06/21 Barbara Johnston MD [address] [place] [address] Referring Urology 12/06/21 Constance Durand LSW [employer] 03/04/22 Team Status: Inactive Member Role Status Dates Shaikh Dotty MD Primary Care Provider Active Jose Martin Mchugh MD Attending Provider Active Team Status: Inactive Member Role Status Dates Shaikh Dotty MD Primary Care Provider Active Theo Thakkar MD Attending Provider Active Oil Painter Relationship Specialty Start Date End Date Shaikh Storm MD [address] [place] [address] PCP - General Primary Care 12/06/21 Barbara Johnston MD [address] [place] [address] Referring Urology 12/06/21 Constance Durand LSW [employer] 03/04/22 Oil Painter Relationship Specialty Start Date End Date Shaikh Storm MD [address] [place] [address] PCP - General Primary Care 12/06/21 Barbara Johnston MD [address] [place] [address] Referring Urology 12/06/21 Constance Durand LSW [employer] 03/04/22 Team Status: Inactive Member Role Status Dates Shaikh Dotty MD Primary Care Provider, Attending Pr ovider Active Oil Painter Relationship Specialty Start Date End Date Shaikh Storm MD [address] [place] [address] PCP - General Internal Medicine 06/04/23 Oil Painter Relationship Specialty Start Date End Date Shaikh Storm MD [address] [place] [address] PCP - General Primary Care 12/06/21 Barbara Johnston MD [address] [place] [address] Referring Urology 12/06/21 Constance Durand LSW [employer] 03/04/22 Oil Painter Relationship Specialty Start Date End Date Shaikh Storm MD [address] [place] [address] PCP - General Internal Medicine 06/04/23 Oil Painter Relationship Specialty Start Date End Date Shaikh Storm MD [address] [place] [address] PCP - General Internal Medicine 06/04/23 Oil Painter Relationship Specialty Start Date End Date Shaikh Storm MD PCP - General Internal Medicine 06/04/23 Goals [...] BE BASED ON THE PRIMARY CLINICAL RECORDS. [facility]. provides no warranty or guarantee of the accuracy or completeness of information in this document.
--- NOTE | 2023-08-19 11:08 | PM.CN ---
Consult Note: HPI Data of Consult Patient: known to practice within the last 3 years Requesting Physician: Jennie Ferrera NP Primary Care Provider: Shaikh Dotty MD Consult Narrative Reason for consult: f/u Narrative: Dexter Broussard a pleasant 78 year old male presents for evaluation and management of chronic low back pain. Patient reporting pain today 2/10 up to 9/10, does increase with activity, decreased with medications and sitting. Patient reports norco 7.5-325 TID PRN provides moderate pain relief without side effects, continues to find benefit from baclofen 10mg hs and gabapentin 100mg HS but cannot tolerate higher doses. Patient cannot take NSAIDs as he is on plavix, has failed to benefit from tylenol and PT in the past. Patient recently underwent right L4-5 L5-S1 TFESI with 85% improvement in pain and functional ability. CUCA improved to 38% today. cc:: CC: Jennie Ferrera NP Review of Systems ROS Status of ROS 10 or more systems reviewed and unremarkable except as noted in history and below PFSH [facility] Medical History (Updated 08/19/23 @ 11:19 by Jennie Ferrera NP) History of stress test ?Z92.89 - Personal history of other medical treatment (ICD-10) Osteoarthritis ?M19.90 - Unspecified osteoarthritis, unspecified site (ICD-10) Hearing deficit ?H91.90 - Unspecified hearing loss, unspecified ear (ICD-10) Stroke ?I63.9 - Cerebral infarction, unspecified (ICD-10) Prostate cancer ?C61 - Malignant neoplasm of prostate (ICD-10) Enlarged prostate ?N40.0 - Benign prostatic hyperplasia without lower urinary tract symptoms (ICD-10) Kidney disease ?N28.9 - Disorder of kidney and ureter, unspecified (ICD-10) Surgical History (Updated 08/04/23 @ 13:34 by Krysta Yu RN) H/O endarterectomy ?Z98.890 - Other specified postprocedural states (ICD-10) History of bowel resection ?Z90.49 - Acquired absence of other specified parts of digestive tract (ICD-10) History of exploratory laparotomy ?Z98.890 - Other specified postprocedural states (ICD-10) History of lumbar discectomy ?Z98.890 - Other specified postprocedural states (ICD-10) History of heart artery stent ?Z95.5 - Presence of coronary angioplasty implant and graft (ICD-10) Meds Home Medications and Allergies Home Medications ?Medication ?Instructions ?Recorded ?Confirmed ?Type amlodipine 10 mg tablet 10 mg PO DAILY 02/05/23 08/10/23 History aspirin 81 mg capsule 81 mg PO DAILY 02/05/23 08/10/23 History baclofen 10 mg tablet 10 mg PO DAILY 02/05/23 08/10/23 History ezetimibe 10 mg tablet 10 mg PO DAILY 02/05/23 08/10/23 History gabapentin 100 mg capsule 100 mg PO DAILY #30 caps 02/05/23 08/10/23 Rx hydrocodone 7.5 mg-acetaminophen 1 tab PO TID PRN pain #90 tabs 03/09/23 08/10/23 Rx 325 mg tablet VITAMIN D 50,000U 07/30/23 History clopidogrel 75 mg tablet (Plavix) 75 mg PO DAILY 07/30/23 08/10/23 History desmopressin 0.1 mg tablet 0.1 mg PO QDAY 07/30/23 08/10/23 History lisinopril 20 mg tablet 20 mg PO DAILY 07/30/23 08/10/23 History pravastatin 40 mg tablet 40 mg PO DAILY 07/30/23 08/10/23 History hydrocodone 7.5 mg-acetaminophen 1 tab PO TID PRN pain #90 tabs 08/07/23 08/10/23 Rx 325 mg tablet Allergies Allergy/AdvReac Type Severity Reaction Status Date / Time No Known Drug Allergies Allergy Verified 08/10/23 11:17 Exam Constitutional Documenting provider has reviewed patient's vital signs: yes Common normals: no apparent distress, oriented x3, healthy appearing, alert and well nourished General appearance: cooperative [facility] Common normals: normocephalic, hearing grossly normal bilaterally and moist oral mucous membranes Head and scalp: normocephalic Eye Common normals: PERRL Pupil: PERRL Neck & C-Spine Common normals: full ROM General: normal visual inspection Chest Common normals: inspection of chest normal Respiratory Common normals: normal respiratory effort, no retractions and no use of accessory muscles Back & Pelvis Lumbar spine/lower back: ROM limited, pain with ROM and straight leg raise negative bilaterally Extremity Common normals: normal to inspection and full ROM Left lower extremity: hip joint (pain with external rotation) Neuro Common normals: oriented x3, CN's II-XII intact bilaterally, moves all extremities, no focal motor deficits, no sensory deficits noted and deep tendon reflexes 2+ bilaterally Sensorium/orientation: alert Gait (neuro): antalgic Motor exam: strength 5/5 throughout and no movement abnormalities noted Other: intermittent numbness burning to BLE. Psych Common normals: mental status grossly normal, thought process normal, cooperative, affect normal, speech normal and activity/motor behavior normal Speech: normal speech Thought process: normal thought process Results Additional Findings Additional findings: If on a controlled substance or opioids, I have checked an [place] report on this patient and there are no aberrancies noted in the prescribing history.??If on a controlled substance or opioid a drug screen was completed and reviewed within the last year, and if there has not been a drug screen completed we ordered one today to monitor higher risk, state monitored pain medication use. As part of providing excellent, safe, comprehensive care, the following was completed at our patient's visit: 1. A medication reconciliation and review to ensure accurate knowledge of current/active medications, including asking our patients to inform us about any [id number] medications or herbal remedies/nutritional supplements/alternative remedies. 2. A review to specifically ensure our patients have had annual screening for screening for depression, screening for tobacco use, and screening for unhealthy alcohol use. For concerning screenings had a discussion with the patient, provided patient education, and recommended follow-up with primary care provider when appropriate. If patient noted with a risk of falling, they received education on strength, gait, and balance training to prevent future risk of falling. 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 The patient does not report intolerable side effects. The patient is NOT opioid naive and non-pharmacologic and non-opioid treatment has failed to significantly relieve the patient's pain and improve functionality. The patient has a diagnosis that is related to a somatic or visceral pain etiology. ? ?? I reviewed with the patient the potential risks and side effects with the use of? opioid medications including but not limited to respiratory depression,? sedation, and even . I verified the patient has access to naloxone should? these effects occur. I advised the patient to avoid the use of any other? sedation substances including alcohol, THC, and benzodiazepines while? taking opioid medications due to the risk of compounding side effects and? detrimental outcomes. I reviewed the FACING CUTTING MACHINE OPERATOR, pain treatment agreement, urine? drug screen, and opioid start talking forms. The patient was advised to let? their family know they had Naloxone in case they would need to administer? the medication.? ?? A drug screen was completed within the last year, and no aberrancies were noted regarding their use of controlled substances. The patient understands they are subject to the terms and conditions of the pain contract that they have signed. ? ?? I have checked an [place] report on this patient today and there are no aberrancies noted in the prescribing history.? (5) Lumbar radiculopathy: Plan continue medications as tolerated, cannot tolerate higher dose of gabapentin due to drowsiness max dose 100mg HS. continues to utilize norco 7.5-325mg BID-TID PRN moderate to severe pain with great funcitonal improvement and moderate pain relief without side effects f/u with Dr Shirley NORMAN f/u 2 weeks after injection, consider SCS in the future if he does not have surgery or is not a candidate. Smoking cessation discussed.
== END 2023-08-19 10:55 | disposition home or self-care (01) ==
LOC: PM 10:55
PROVIDERS: PCP Internal Medicine; Visit Provider Nurse Practitioner
DX: M48.062 Spinal stenosis, lumbar region with neurogenic claudication (principal); N18.9 Chronic kidney disease, unspecified; M47.816 Spondylosis without myelopathy or radiculopathy, lumbar region; Z79.891 Long term (current) use of opiate analgesic; M54.16 Radiculopathy, lumbar region
CPT/HCPCS: G0463

== ENCOUNTER 2024-01-14 10:31 | Outpatient (OUT) | payer MEDICARE, SELFPAY ==
--- OUTSIDE RECORDS SUMMARY | 2024-01-14 10:42 | XMS_ITS | CCD ---
Author Organization [facility] Care Team Providers Care Proposal Editor Name Role Phone Sterling Vizcaino Primary Care Physician Theo Thakkar Unavailable Dotty MAK [facility] Primary Care Provider Barbara Johnston MD Unavailable [phone] YAHAIRA STORMIKH Primary Care Physician Dotty MAK [facility] Primary Care Provider Barbara Johnston MD Unavailable Constance Beverly Unavailable Unavailable Dotty MAK [facility] Primary Care Provider Barbara Johnston MD R Unavailable Constance Beverly Unavailable Unavailable MD Dotty [facility] Primary Care Provider MD Zeinab Justice Attending Provider MD Lyla Nazario Attending Provider LAKSHMIPATHY ., NARENDRANATH Attending Kiera vailable LAKSHMIPATHY ., NARENDRANATH Admitting Kiera vailable HALKER .HUBERT Consulting Unavailable [facility] Primary Care Unavailable OLIVA ., DR HOSEA Davison Admitting Unavailable HOBBS .BERNIE Consulting Unavailable OLIVA ., DR HOSEA Davison Attending Unavailable [facility] Primary Care Unavailable OLIVA ., DR HOSEA Davison Admitting Unavailable OLIVA ., DR HOSEA Davison Consulting Unavailable [facility] Primary Care Unavailable OLIVA ., DR HOSEA Davison Attending Unavailable [facility] Consulting Unavailable HOBBS ., BERNIE Consulting Unavailable OLIVA ., DR HOSEA Davison Attending Unavailable OLIVA ., DR HOSEA Davison Admitting [facility] Care Unavailable OLIVA ., DR HOSEA Davison Consulting Unavailable OLIVA ., DR HOSEA Davison Admitting Unavailable OLIVA ., DR HOSEA Davison Consulting [facility] Primary Care Unavailable OLIVA ., DR HOSEA Davison Attending Unavailable [facility], [facility] Consulting Unavailable JONATHAN MARTIN Consulting Unavailable HOBBS ., BERNIE Consulting Unavailable OLIVA ., DR HOSEA Davison Admitting [facility] Primary Care Unavailable OLIVA ., DR HOSEA Davison Attending Unavailable HOBBS ., BERNIE Consulting Unavailable OLIVA ., DR HOSEA Davison Attending Unavailable OLIVA ., DR HOSEA Davison Admitting [facility] Primary Care Unavailable OLIVA ., DR HOSEA Davison Attending Unavailable OLIVA ., DR HOSEA Davison Admitting [facility] Primary Care Unavailable OLIVA ., DR HOSEA Davison Consulting Unavailable HOBBS ., BERNIE Consulting Unavailable OLIVA ., DR HOSEA Davison Attending Unavailable OLIVA ., DR HOSEA Davison Admitting [facility] Primary Care Unavailable OLIVA ., DR HOSEA Davison Admitting [facility] Primary Care Unavailable OLIVA ., DR HOSEA Davison Attending Unavailable OLIVA ., DR HOSEA Davison Admitting Unavailable OLIVA ., DR HOSEA Davison Consulting [facility] Primary Care Unavailable OILVA ., DR HOSEA Davison Attending Unavailable [facility] Primary Care Unavailable JOHNSTON ., DR JIMENEZ Consulting Unavailable JOHNSTON ., DR JIMENEZ Attending Unavailable JOHNSTON ., DR JIMENEZ Admitting Unavailable VIVIANTHEO Consulting Unavailable VIVIANTHEO Attending Unavailable VIVIAN, THEO Admitting Unavailable [facility] Primary Care Unavailable RUT KIRBY Attending Unavailable RUT KIRBY Admitting [facility]available [facility] Primary Care Unavailable MD Justice Storm Primary Care Provider [phone] MD Justice Storm Other Provider ABE Ferrera Attending Provider Anesthesiologist, Temporary Attending Provider U Abdi Augustineie Unavailable MD Lyla Nazario Attending Provider MD Jose Martin Mchugh Attending Provider [phone] MD Theo Thakkar Attending Provider Jose Martin Mchugh Unavailable MD Dotty [facility] Primary Care Provider Anesthesiologist, Temporary Attending Provider U MD Lyla Carvalho Attending Provider MD Jose Martin Mchugh Attending Provider MD Theo Thakkar Attending Provider [phone] MD Dotty [facility] Primary Care Provider MD Justice Storm Attending Provider Dotty MAK [facility] Primary Care Provider JOSE NICHOLS Referring Unavailable [facility] Primary Care Unavailable KODI REYNOLDS Attending Unavailable Dotty MAK [facility] Primary Care Provider CHAIM GRAYSON Referring Unavailable [facility] Primary Care Unavailable CHAIM GRAYSON Referring Unavailable [facility] Primary Care Unavailable CHAIM GRAYSON Referring Unavailable [facility] Primary Care Unavailable Nicolette MAK, Adalid Powers Attending Unavailable Dotty MAK [facility] Primary Care Provider SHAIKH STORM Attending Unavailable FERNANDAMARIA ISABEL CARREON Attending Unavailable [facility] Referring Unavailable SHAIK STORMH Attending Unavailable CLAIRE JAMES Attending Unavailable CLAIRE JAMES Admitting Unavailable CLAIRE JAMES [facility]ending [facility] Primary Care Unavailable CLAIRE JAMES Attending Unavailable [facility], [facility] Primary Care Unavailable Barbara JOHNSTON Attending Unavailable CLAIRE JAMES Attending Unavailable CLAIRE JAMES Attending Unavailable CLAIRE JAMES Attending Unavailable [facility] Primary Care Unavailable Barbara JOHNSTON Attending Unavailable CLAIRE JAMES Attending Unavailable CLAIRE JAMES Admitting Unavailable MD Dotty [facility] Primary Care Provider MD Justice Storm Attending Provider MD Barbara Johnston Referring Provider CHAIM GRAYSON Attending Unavailable [facility] Primary Care Unavailable CHAIM GRAYSON Referring Unavailable CHAIM GRAYSON Referring Unavailable [facility] Primary Care Unavailable CHAIM GRAYSON Attending Unavailable CHAIM GRAYSON Referring Unavailable [facility] Care Unavailable Lyla Nazario Admitting Unavailable Lyla Nazario Attending Unavailable [facility] Primary Care Unavailable Theo Thakkar Admitting Unavailable Theo Thakkar Attending Unavailable [facility] Primary Care Unavailable Jose Martin Mchugh Attending Unavailabl e Jose Martin Mchugh Admitting [facility]abl e [facility] Unavailable Jennie Ferrera Admitting Unavailable Jennie Ferrera Attending Unavailable [facility] Consulting Unavailable [facility] Primary Care Unavailable [facility] Primary Care Unavailable [facility] Admitting Unavailable [facility] Attending Unavailable Ramirez Grayson Admitting Unavailable Ramirez Grayson Attending Unavailable [facility] Primary Care Unavailable Barbara Johnston Referring Unavailable [facility] Primary Care Unavailable [facility] Admitting Unavailable [facility] Attending Unavailable Jose Martin Mchugh Attending Unavailabl e LangJose Martin meneses Admitting [facility] Un[facility] Jose Martin Mchugh Admitting Unavailabl e LangJose Martin meneses Attending [facility]availabl e [facility] Unavailable Langzaira, Jose Martin T Admitting Unavailabl e Langzaira, Jose Martin Staton Attending [facility]availabl e [facility] Unavailable [facility] Primary Care Unavailable Anesthesiologist, Temporary Admitting Unav ailable Anesthesiologist, Temporary Attending Unav ailable Jose Martin Mchugh Attending UnavailJose Martin Siddiqui Admitting [facility]availabl e [facility] Un[facility] Dotty [facility]K [facility] Primary [facility] Provider [facility] Unavailable Genoveva NAZARIO Referring Unavailable JOSE NICHOLS Attending Unavailable Genoveva NAZARIO Attending Unavailable Genoveva NAZARIO Referring Unavailable [facility] Care [facility] Primary Care Unavailable Genoveva NAZARIO Attending [facility]available [facility] Unavailable MADERA, VASILE Admitting Unavailable MADERA, VASILE Attending Unavailable MADERA, VASILE Referring Unavailable MADERA, VASILE Referring Unavailable MADERA, VASILE Referring Unavailable MADERA, VASILE Referring Unavailable MADERA, VASILE Referring Unavailable MADERA, VASILE Referring Unavailable MADERA, VASILE Attending Unavailable OVITT, JOELLEN Attending Unavailable MADERA, VASILE Attending Unavailable OVITT, JOELLEN Attending Unavailable Allergies Allergy Classification Reported Allergen(s) Allergy Type Date of Onset Reaction(s) Facility (13 sources) ezetimibe; Translations: [EZETIMIBE] Drug Allergy 3 GI intolerance, Nausea/vomiting [facility] (7 sources) HMG-CoA reductase inhibitor; Translations: [[id number] REDUCTASE INHIBITORS] Drug Intolerance 3 Other [facility] Work Phone: (1 source) ALLERGIES NOT ON FILE; Translations: [ALLERGIES NOT ON FILE] Propensity to adverse reactions (disorder) [facility] Repository Medications Current Medications Medication Drug Class(es) Dates Sig (Normalized) Sig (Original) acetaminophen 325 mg / HYDROcodone bitartrate 7.5 mg oral tablet (20 sources) Opioid Agonist Start: 01-08-2023 End: 05-19-2023 take 1 tablet by mouth three times daily Hydrocodone-Aceta minophen Active 1 TAB PO Three times daily February 06, 2023 12:00am Start: 11-09-2021 End: 12-15-2023 HYDROcodone-acetaminophen (N ORCO) 5-325 mg per tablet Start: 11-09-2021 End: 02-06-2023 take 1 tablet by mouth twice daily Hydrocodone-Acetaminophen Discontinued 1 TAB PO Twice daily November 22, 2021 12:00am February 06, 2023 11:57am Start: 03-22-2021 [place] 5/325 Ta b Oral, q6hr, Refill(s) 0 Start Date: 03/22/21 Status: Ordered Start: 03-22-2021 [place] 5/325 Ta b Oral, q6hr, Refill(s) 0 Start Date: 03/22/21 Status: Ordered take 1 tablet by leslie th every six hours as needed [place] 5-325 MG 1 tablet as needed Orally [...] 03/22/21 Status: Ordered Start: 03-22-2021 End: 08-31-2023 amLODIPine (NORVASC) 10 mg t ablet amlodipine 10 mg tablet 0 03/22/2021 Active Comment on above: amlodipine 10 mg [...] (Dr/Ec) Active 81 MG PO Daily February 06, 2023 12:00am Start: 03-22-2021 take 1 mg by mouth [...] Active Comment on above: Take by mouth. baclofen 10 mg oral tablet (20 sources) gamma-Aminobutyric Acid-ergic Agonist Start: 11-04-2021 baclofen (LIORESAL) 10 mg tablet baclofen 10 mg tablet 0 11/04/2021 Active Start: 11-04-2021 take 1 mg by mouth t hree times daily baclofen 10 mg Tab mg tab(s), Oral, TID, Refills(s) 0 Start Date: 11/04/21 Status: Ordered Comment on above: baclofen 10 mg table t ciprofloxacin 500 mg oral tablet (1 source) Quinolone Antimicrobial Start: 05-13-20 End: 05-27-20 take 1 tablet by mouth twice daily ciprofloxacin HCl (CIPRO) 500 mg tablet Take 1 tablet by mouth twice daily for 14 days. 20 tablet 0 05/13/2022 05/27/2022 Active Comment on above: Take 1 tablet by leslie twice daily for 14 days. clopidogrel 75 mg oral tablet (14 sources) P2Y12 Platelet Inhibitor Start: 03-23-20 End: 08-18-19 take 75 mg by mouth once daily Clopidogrel Active 75 MG PO Daily 90 180 March 23, 2023 12:00am Clopidogrel Bisu lfate Active Cranberry preparation (1 source) Non-Standardized Food Allergenic Extract, Non-Standardized Plant Allergenic Extract Start: 09-18-2023 Azo cranberry Refill(s) 0 Start Date: 09/18/23 Status: Ordered desmopressin acetate 0.1 mg oral tablet (6 [...] day(s), # 5 tab(s), Refills(s) 0, Pharmacy: [id number], 178, cm, 04/21/23 8:36:00 EST, Height/Length [...] Comment on above: Take 1 tablet by [facility] as directed for 12 days. Take 1 tablet by mouth one hour prior to procedure. ergocalciferol 1.25 mg oral capsule (11 sources) Provitamin D2 Compound Start: 09-15-2023 End: 09-15-2023 take 84719 [IU] by mouth every week Ergocalciferol (Vitamin D2) Active 01979 UNIT PO Once a week September 15, 2023 5:43pm Start: 03-10-2023 take 1 capsule by mo ut every week Ergocalciferol 1.25 MG (61099 UT) 1 capsule Orally Q week for 90 days Mar, Active take 1 capsule by mo uth every week ergocalciferol (Vitamin D-2) 1.25 MG (93813 UT) capsule Take 1 capsule (1,250 mcg) by mouth 1 (one) time per week. 0 Active ergocalciferol, vitamin D2, (VITAMIN D2 ORAL) (3 sources) ergocalciferol, vitamin D2, (VITAMIN D2 ORAL) Take by mouth. 0 Active Comment on above: Take by mouth. ezetimibe 10 mg oral tablet (2 sources) Dietary Cholesterol Absorption Inhibitor Start: 03-25-20 take 1 mg by mouth once daily ezetimibe 10 mg Tab mg tab(s), Oral, Daily, Refills(s) 0 Start Date: 03/25/21 Status: Ordered gabapentin 100 mg oral capsule (20 sources) Anti-epileptic Agent Start: 02-12-20 gabapentin 100 mg Cap Refills(s) 0 Start Date: 02/11/23 Status: Ordered Start: 02-06-2023 take 100 mg by mouth once wilfrid y Gabapentin Active 100 MG PO Daily February 06, 2023 12:00am Start: 02-06-2023 take 1 mg by mouth [...] Status: Ordered nitroglycerin 0.4 mg sublingual tablet (2 sources) Nitrate Vasodilator Start: 09-18-19 nitroglycerin 0.4 mg sublingual Tab Refills(s) 0 Start Date: 09/18/23 Status: Ordered Start: 08-18-2023 End: 08-17-2024 nitroglycerin (Nitrostat) 0. 4 mg SL tablet Indications: Chest pain, unspecified type Place 1 tablet (0.4 mg) under the tongue every 5 minutes if needed for chest pain. May repeat dose every 5 minutes for up to 3 doses total. 100 tablet 08/18/2023 08/17/2024 Active omeprazole 40 mg delayed release oral capsule (1 source) Proton Pump Inhibitor Start: 10-15-2023 take 40 mg by mouth once daily Omeprazole Active 40 MG PO Daily October 15, 2023 12:00am Oxybutinin XL 5mg (4 sources) Oxybutinin XL 5m g ONCE A DAY Active Oxybutinin XL 5m g Active oxybutynin chloride 5 mg oral tablet (11 sources) Cholinergic Muscarinic Antagonist Start: 02-11-2023 take 2 tablets by mouth at bedtime oxybutynin 5 mg Tab 10 mg = 2 tab(s), Oral, Bedtime, # 60 tab(s), Refills(s) 3, Pharmacy: [id number], 178, cm, 02/11/23 14:50:00 EDT, Height/Length Dosing, 92, kg, 02/11/23 14:50:00 EDT, Weight Dosing Start Date: 02/11/23 Status: Ordered Start: 02-06-2023 End: 10-15-2023 take 5 mg by mouth once daily at bedtime Oxybutynin Chloride Discontinued 5 MG PO Daily at bedtime February 06, 2023 12:00am October 15, 2023 9:17am Start: 12-03-2022 take 1 tablet by leslie th at bedtime oxybutynin 5 mg Tab 5 mg = 1 tab(s), Oral, Bedtime, # 30 tab(s), Refills(s) 2, Pharmacy: [id number], 178, cm, 12/03/22 15:00:00 EDT, Height/Length Dosing, 93, kg, 12/03/22 15:00:00 EDT, Weight Dosing Start Date: 12/03/22 Status: Ordered oxyCODONE hydrochloride 5 mg oral tablet (1 source) Opioid Agonist Start: 12-02-2023 take 1 tablet by mouth every six hours as needed oxyCODONE IR (ROXICODONE) 5 mg immediate release tablet TAKE 1 TO 2 TABLETS BY MOUTH EVERY 6 HOURS NEEDED for up to 7 (SEVEN) days 0 12/02/2023 Active pravastatin sodium 40 mg oral tablet (20 sources) HMG-CoA Reductase Inhibitor Start: 03-23-2023 End: 08-17-2024 take 40 mg by mouth once daily in the evening Pravastatin Active 40 MG PO Every evening 90 180 March 23, 2023 12:00am Start: 03-22-2021 End: 03-23-2023 pravastatin (PRAVACHOL) 10 m g tablet pravastatin 10 mg tablet 0 03/22/2021 Active Comment on above: pravastatin 10 mg ta blet sildenafil 50 mg oral tablet (6 sources) Phosphodiesterase 5 Inhibitor Start: 04-21-20 sildenafil (Viagra) 50 mg tablet Take 1 tablet (50 mg) by mouth if needed. 0 04/21/2023 Active tadalafil 20 mg oral tablet (1 source) Phosphodiesterase 5 Inhibitor Start: 07-07-19 Cialis 20 mg Tab 20 mg = 1 tab(s), Oral, As Directed, Do not exceed 20mg within 48 hours., # 30 tab(s), Refills(s) 1, Pharmacy: [id number], 178, cm, 07/07/23 9:25:00 EST, Height/Length Dosing, 92, kg, 07/07/23 9:25:00 EST, Weight Dosing Start Date: 07/07/23 Status: Ordered valsartan 80 mg oral tablet (7 sources) Angiotensin 2 Receptor Miroslava Start: 06-04-19 End: 08-18-19 take 80 mg by mouth once daily Valsartan Active 80 MG PO Daily October 15, 2023 12:00am vitamin B12 (2 sources) Vitamin B12 Start: 03-22-20 Vitamin B12 Refills(s) 0 Start Date: 03/22/21 Status: Ordered Vitamin D2 50,000 intl units (1.25 mg) oral capsule (3 sources) Start: 04-21-20 take 1 capsule by mouth every week Vitamin D2 50,000 intl units (1.25 mg) oral capsule International_Unit cap(s), Oral, qWeek Start Date: 04/21/23 Status: Ordered Completed/Discontinued Medications Medication Drug Class(es) Dates Sig (Normalized) Sig (Original) atenolol 50 mg oral tablet (20 sources) beta-Adrenergic Miroslava Start: 03-22-2021 End: 12-15-2023 atenolol (TENORMIN) 50 mg tablet Comment on above: atenolol 50 mg table t lisinopril 20 mg oral tablet (20 sources) Angiotensin Converting Enzyme Inhibitor Start: 03-25-2021 End: 12-15-2023 lisinopril (ZESTRIL, PRINIVIL) 20 mg tablet q 24 HR. 0 03/25/2021 12/15/2023 Discontinued (Discontinued by another Health Care Provider) Start: 03-25-2021 End: 10-15-2023 take 20 mg by mouth once daily Lisinopril Discontinued 20 MG PO Daily November 22, 2021 12:00am October 15, 2023 9:17am Comment on above: q 24 HR. pregabalin 75 mg oral capsule (20 sources) Start: 01-08-2023 End: 12-15-2023 take 1 capsule by mouth once daily at bedtime pregabalin (LYRICA) 75 mg capsule Take 1 capsule by mouth once daily. At bedtime. 0 01/08/2023 12/15/2023 Discontinued (Discontinued by another Health Care Provider) Start: 11-22-2021 End: 05-19-2023 take 50 mg by mouth twice daily Pregabalin Discontinue d 50 MG PO Twice daily November 22, 2021 12:00am February 06, 2023 11:58am Start: 11-04-2021 take 1 capsule by mo [...] capsule (20 sources) alpha-Adrenergic Miroslava Start: 10-04-2021 End: 12-15-2023 Terazosin HCl (HYTRIN) 10 mg capsule Start: 03-22-2021 take 1 mg by mouth o nce daily at bedtime terazosin 2 mg Cap mg cap(s), Oral, Once a day (at bedtime), Refills(s) 0 Start Date: 03/22/21 Status: Ordered Problems Active Problems Problem Classification Problem Date Documented Date Episodic/Chronic Abdominal hernia (11 sources) Umbilical hernia; Translations: [Umbilical hernia without obstruction or gangrene] Onset: 06-04-19 24 03-25-2021 Episodic Acute cerebrovascular disease (4 sources) Cerebrovascular accident; Translations: [Cerebral infarction, unspecified] Onset: 06-04-19 24 06-04-2023 Chronic Anxiety disorders (11 sources) Anxiety; Translations: [Anxiety disorder, unspecified] Onset: 06-04-19 24 03-22-2021 Chronic Cancer of prostate (20 sources) Malignant neoplasm of prostate; Translations: [Malignant tumor of prostate] Onset: 11-05-19 Chronic Cancer of prostate (7 sources) History of malignant neoplasm of prostate; Translations: [Personal history of malignant neoplasm of prostate] Onset: 04-27-20 Episodic Chronic kidney disease (20 sources) Chronic kidney disease stage 3; Translations: [Stage 3 chronic kidney disease] Onset: 11-20-1911-19-2022 Chronic Chronic kidney disease (6 sources) Chronic kidney disease; Translations: [Chronic kidney disease, stage III (moderate)] Onset: 10-25-19 Resolved : 10-25-19 Coronary atherosclerosis and other heart disease (11 sources) History of myocardial infarction; Translations: [Old myocardial infarction] Onset: 06-04-1906-04-2023 Chronic Coronary atherosclerosis and other heart disease (2 sources) Coronary atherosclerosis and other heart disease; Translations: [Atherosclerosis of saxman arteries of extremities with intermittent claudication, bilateral legs] Onset: 03-23-20 Disorders of lipid metabolism (20 sources) Hyperlipidemia; Translations: [Dyslipidemia] Onset: 10-25-19 Resolved : 10-25-1903-22-2021 Chronic Essential hypertension (18 sources) Hypertensive disorder; Translations: [Essential (primary) hypertension] [...] Chronic Inflammatory conditions of male genital organs (11 sources) Chronic prostatitis; Translations: [Chronic prostatitis] Onset: 06-04-1905-13-2021 Chronic Inflammatory conditions of male genital organs (7 sources) Prostatitis 03-25-2021 Episodic Nephritis; nephrosis; renal sclerosis (4 sources) 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; Translations: [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] Onset: 06-04-1906-04-2023 Chronic Nonspecific chest pain (12 sources) Chest discomfort; Translations: [Other chest pain] Onset: 06-04-1906-04-2023 Episodic Occlusion or stenosis of precerebral arteries (2 sources) Occlusion and stenosis of unspecified carotid artery; Translations: [Occlusion and stenosis of unspecified carotid artery] Onset: 11-05-19 Chronic Other acquired deformities (1 source) Lumbar spondylolisthesis; Translations: [Spondylolisthesis, lumbar region] 06-12-2023 Episodic Other acquired deformities (1 source) Spondylolisthesis, lumbar region; Translations: [Spondylolisthesis of lumbar region] Onset: 06-12-19 Episodic Other aftercare (1 source) Encounter for surgical aftercare following surgery on the circulatory system Episodic Other aftercare (2 sources) senior living (current) use of anticoagulants; Translations: [intermediate project manager (current) use of anticoagulants] Onset: 11-05-19 Episodic Other and ill-defined heart disease (11 sources) Heart disease; Translations: [Heart disease, unspecified] Onset: 06-04-1903-22-2021 Chronic Other circulatory disease (6 sources) Disorder of carotid artery; Translations: [Disorder of arteries and arterioles, unspecified] Onset: 06-04-1906-04-2023 Chronic Other circulatory disease (4 sources) Disorder of arteries and arterioles, unspecified; Translations: [Disorder of arteries and arterioles, unspecified (CMS/HCC)] Onset: 06-04-19 Chronic Other connective tissue disease (6 sources) Other muscle spasm; Translations: [OTHER MUSCLE SPASM] Onset: 03-13-20 Episodic Other connective tissue disease (2 sources) Other bursal cyst, other site; Translations: [Other bursal cyst, other site] Onset: 11-17-19 Episodic Other diseases of kidney and ureters (4 [...] Episodic Other diseases of kidney and ureters (11 sources) Kidney disease; Translations: [Disorder of kidney and ureter, unspecified] Onset: 06-04-1903-22-2021 Episodic Other male genital disorders (9 sources) Male erectile dysfunction, unspecified; Translations: [Erectile dysfunction] Onset: 04-21-20 Chronic Other nervous system disorders (11 sources) Chronic pain syndrome; Translations: [Chronic pain syndrome] Onset: 06-04-1903-22-2021 Chronic Other nervous system disorders (1 source) Other chronic pain; Translations: [OTHER CHRONIC PAIN] Onset: 02-15-20 Chronic Other nervous system disorders (2 sources) Other acute postprocedural pain; Translations: [Other acute postprocedural pain] Onset: 11-17-19 Episodic Other nutritional; endocrine; and metabolic disorders (2 sources) Overweight in adulthood with body mass index of 25 or more but less than 30; Translations: [Body mass index (BMI) 28.0-28.9, adult] Onset: 08-18-1908-18-2023 Episodic Other nutritional; endocrine; and metabolic disorders (2 sources) Body mass index (BMI) 28.0-28.9, adult; Translations: [Body mass index (BMI) 28.0-28.9, adult] Onset: 08-18-19 Episodic Peripheral and visceral atherosclerosis (20 sources) Peripheral vascular disease, unspecified; Translations: [Peripheral vascular disease, unspecified] Onset: 06-04-1902-16-2023 Chronic Residual codes; unclassified (1 source) Other specified postprocedural states Episodic Residual codes; unclassified (1 source) Family history of ischemic heart disease and other diseases of the circulatory system Episodic Residual codes; unclassified (2 sources) Pain, unspecified; Translations: [Pain, unspecified] Onset: 11-17-19 Episodic Spondylosis; intervertebral disc disorders; other back problems (12 sources) Spondylosis without myelopathy or radiculopathy, lumbar region; Translations: [Other intervertebral disc degeneration, lumbar region] Onset: 01-24-20 Chronic Spondylosis; intervertebral disc disorders; other back problems (11 sources) Spinal stenosis, lumbar region without neurogenic claudication; Translations: [Intervertebral disc disorders with radiculopathy, lumbar region] Onset: 01-25-20 22 Episodic Substance-related disorders (17 sources) Smoker; Translations: [Nicotine dependence, unspecified, uncomplicated] Onset: 06-04-19 24 03-22-2021 Chronic Comment on above: Added secondary to d ocumentation in Social History. Unclassified (7 sources) Finding of sensation of bladder 03-25-2021 Unclassified (4 sources) LOW BACK PAIN, UNSPECIFIED; Translations: [LOW BACK PAIN, UNSPECIFIED] Onset: 12-14-19 22 Unclassified (1 source) CONTACT W/AND (SUSP) EXPOS [...] region without neurogenic claudication] Onset: 02-21-20 23 Unclassified (2 sources) Post-op; Translations: [Post-op] Onset: 01-12-20 24 Unclassified (2 sources) Pre-op Exam; Translations: [Pre-op Exam] Onset: 11-05-19 24 Unclassified (2 sources) Consult; Translations: [Consult] Onset: 09-02-19 24 Urinary tract infections (14 sources) Urinary tract infectious disease; Translations: [Urinary tract infection, site not specified] Onset: 10-29-19 Episodic Past or Other Problems Problem Classification Problem Date Documented Da te Episodic/Chronic Cardiac dysrhythmias (4 sources) Bradycardia; Translations: [Bradycardia, unspecified] Onset: 04-27-2023 06-04-2023 Episodic Unclassified (1 source) LOW BACK PAIN, UNSPECIFIED; Translations: [LOW BACK PAIN, UNSPECIFIED] Onset: 12-12-2021 Unclassified (4 sources) Onset: 06-04-2023 Resolved: 08-18-2023 06-04-2023 Results Test Name Value Interpretation Reference Range Facility Office Visiton 01-12-2024 Follow-up visit [id number] Dianne Broussard mandeep 1945 M Date Provider Department Center 01/12/2024 JOELLEN STANTON [facility] SURG Second Fl Family History Problem Relation Age of Onset Hypertension Mother Diabetes Father Family Status - Relation Status Age at Mother Father Level of Service:05764 [place] POSTOP FOLLOW UP VISIT RELATED TO ORIGINAL PX Reason for Visit and Comments: Post-op [483] - Patient is here for a 4-[address] madera [facility] CNOVon 12-15-2023 CNOV Office Visit (RADTSA ) -- YESENIA BROUSSARD ([id number]) 1945 M Date Time Provider Department 12/15/23 2:30 PM Genoveva NAZARIO During your visit today, we recorded the following information about you: Temperature Pulse Respiration Blood pressure 97.8 degrees 86/minute 16/minute 137/76 Weight 86.9 kg Genoveva Nazario MD 12/22/2023 8:57 AM Signed Radiation Oncology - Follow Up Note PATIENT NAME: Yesenia Broussard PATIENT DIAGNOSIS: Prostate adenocarcinoma, initial PSA 9.95, biopsy Bastrop score 3 + 4 = 7 (grade [...] well. Denies any new problems or concerns. PSA HISTORY: PSA (ng/mL) Date Value 12/10/2023 0.43 05/11/2023 0.43 11/17/2022 0.50 PSA. (no units) Date Value 05/09/2022 2.810 ALLERGIES No Known Allergies oxyCODONE IR (ROXICODONE) 5 mg immediate release tablet TAKE 1 TO 2 TABLETS BY MOUTH EVERY 6 HOURS NEEDED for up to 7 (SEVEN) days ergocalciferol, vitamin D2, (VITAMIN D2 ORAL) Take by mouth. aspirin 81 mg cap Take by mouth. pravastatin (PRAVACHOL) 10 mg tablet pravastatin 10 mg tablet amLODIPine (NORVASC) 10 mg tablet amlodipine 10 mg tablet baclofen (LIORESAL) 10 mg tablet baclofen 10 mg tablet REVIEW OF SYSTEMS: D/N = 5-6/2-4 Hematuria: none Dysuria: none Incontinence: Yes Urgency: mild Catheter use: none Medications to aid urination: y - Total AUA Score: 13 Bowel movement frequency: 1/day Bowel movement quality: normal Blood per rectum: none PHYSICAL EXAM: BP 137/76 Pulse 86 Temp 36.6 ?C (97.8 ?F) Resp 16 Wt 86.9 kg (191 lb 9.3 oz) SpO2 98% BMI 27.49 kg/m? KPS: 90 General Appearance: Alert and oriented. No acute distress. Rectal exam is deferred. ASSESSMENT/PLAN: Prostate adenocarcinoma, initial PSA 9.95, biopsy Bastrop score 3 + 4 = 7 (grade group 2), clinical stage T1b, N0, M0, stage IIB [T1-T2, N0, M0, PSA <20, GG 2] (AJCC 8th ed.), s/p definitive radiation completed April 2022. 1. Prostate cancer. Patient is doing well stable and low PSA plan to see patient back in 1 year with repeat PSA. 2. Spinal stenosis, lumbar spine. Follows with neurosurgery Signed by: Genoveva Nazario MD cc: Shaikh Dotty [address] [place] [place] [address] Diane Parada LPN 12/22/2023 8:57 AM Signed AUA= 13 Referring Provider: Genoveva NAZARIO [[id number]] Allergies As of Date: 12/15/2023 (No Known Allergies) Date Reviewed: 12/15/2023 Reviewed by: Diane Parada LPN - Fully Assessed Reason for Visit: Prostate Cancer [590] Primary Visit Diagnosis:Prostate cancer (HCC) [C61] Other Visit Diagnosis:Stage 3 chronic kidney disease, unspecified whether stage 3a or 3b CKD (HCC) [N18.30] Order(s):PROSTATE-SPECIFIC ANTIGEN DIAGNOSTIC [SQPSA] Order #: [id number] FUTURE Prescriptions as of 12/22/2023 - oxyCODONE IR (ROXICODONE) 5 mg immediate release tablet TAKE 1 TO 2 TABLETS BY MOUTH EVERY 6 HOURS NEEDED for up to 7 (SEVEN) days - ergocalciferol, vitamin D2, (VITAMIN D2 ORAL) Take by mouth. - aspirin 81 mg cap Take by mouth. - pravastatin (PRAVACHOL) 10 mg tablet pravastatin 10 mg tablet - amLODIPine (NORVASC) 10 mg tablet amlodipine 10 mg tablet - baclofen (LIORESAL) 10 mg tablet baclofen 10 mg tablet Problem List As Of Date 12/15/2023 Noted Resolved Prostate cancer (HCC) [C61] 11/18/2022 Stage 3 chronic kidney disease (HCC) [N18.30] 11/19/2022 Visit Notes: >> Diane Parada LPN Tue Dec 15, 2023 2:36 PM Status: Signed AUA= 13 Medications Discontinued During This Encounter Prescriptions - Terazosin HCl (HYTRIN) 10 mg capsule (Discontinued) - pregabalin (LYRICA) 75 mg capsule (Discontinued) Take 1 capsule by mouth once daily. At bedtime. - lisinopril (ZESTRIL, PRINIVIL) 20 mg tablet (Discontinued) q 24 HR. - HYDROcodone-acetaminophen (NORCO) 5-325 mg per tablet (Discontinued) - atenolol (TENORMIN) 50 mg tablet (Discontinued) Disposition: Return in about 1 year (around 12/14/2024). Follow-up and Disposition History for Encounter Date Provider Department Center 12/15/2023 [id number] NAZARIO RADTSNikunj Jama Encounter Status:Closed by Genoveva NAZARIO on 12/22/23 Normal [facility] PSA SerPl-mCncon 12-10-2023 Prostate specific Ag [Mass/Vol] 0.43 ng/mL Normal <2.60 [facility] Comment on above: Order Comment: Speci men Type: BLOOD SPECIMEN Ordering Facility: [facility] Address: [address] [place] [address] Result Comment: Tota l PSA test methodology used is the Electrochemiluminescence Immunoassay by [employer]. Total PSA values by differing methodologies cannot be interchanged. Performed By: #### 2 857-1 #### [facility] CLIA [id number] [address] [place], [place] [address]K [address] OF [facility] Office Visiton 12-02-2023 Follow-up visit [id number] BoboDianne 1945 M Date Provider Department Center 12/02/2023 VASILE DOMINGUEZ ONC DCC Family History Problem Relation Age of Onset Hypertension Mother Diabetes Father Family Status - Relation Status Age at Mother Father Level of Service:78660 [place] POSTOP FOLLOW UP VISIT RELATED TO ORIGINAL PX Reason for Visit and Comments: Post-op [483] Normal [facility] BASIC METABOLIC PANELon 10-30 Anion gap [Moles/Vol] 12 mmol/L Normal 7-20 [facility] Comment on above: Performed By: #### L AB15 #### [facility] (BEAKER) [address] [place] [address] Calcium [Mass/Vol] 9.3 mg/dL Normal 8.6-10.3 [facility] Comment on above: Performed By: #### L AB15 #### [facility] (BEInboundWriter) [address] [place] [address] Chloride [Moles/Vol] 104 mmol/L Normal 98-107 [facility] Comment on above: Performed By: #### L AB15 #### [facility] (BEAKER) [address] [place] [address] CO2 [Moles/Vol] 23 mmol/L Normal 21-[address] [facility] Comment on above: Performed By: #### L AB15 #### [facility] ([facility]) [address] [place] [address] Creatinine [Mass/Vol] 1.51 mg/dL High 0.70-1.30 [facility] Comment on above: Performed By: #### L AB15 #### [facility] ([facility]) [address] [place] [address] GLOMERULAR FILTRATION RATE ML/MIN/1.73 SQ M.PREDICTED 47.0 mL/min/1.73m*2 Low >60.0 [facility] Comment on above: Result Comment: The [facility]???s estimated glomerular filtration rate (eGFR) will no longer include consideration of race in its calculation. The National Kidney Foundation???s eGFR Task Force developed new recommendations for the estimation of the glomerular filtration rate in the [place] They recommend immediate implementation of the new equation refit without the race variable in all laboratories because the calculation does not include race. In addition to not including race in the calculation and reporting, it included diversity in its development, and has acceptable performance characteristics and potential consequences that do not disproportionately affect any one group of individuals. Performed By: #### L AB15 #### [facility] ([facility]) [address] [place] [address] Glucose [Mass/Vol] 128 mg/dL High 70-100 [facility] Comment on above: Performed By: #### L AB15 #### [facility] ([facility]) [address] [place] [address] Potassium [Moles/Vol] 4.6 mmol/L Normal 3.5-5.1 [facility] Comment on above: Performed By: #### L AB15 #### [facility] ([facility]) [address] [place] [address] Sodium [Moles/Vol] 134 mmol/L Low 136-145 [facility] Comment on above: Performed By: #### L AB15 #### [facility] (BEAKER) [address] [place] [address] Urea nitrogen [Mass/Vol] 25 mg/dL Normal 7-25 [facility] Comment on above: Performed By: #### L AB15 #### [facility] [address] [place] [address] UREA NITROGEN/CREATININE (MASS RATIO) IN SER/PLAS 16.6 Normal [facility] Comment on above: Performed By: #### L AB15 #### [facility] ([facility] [address] [place] [address] CBCon 11-18-2023 Erythrocyte distribution width (RBC) [Ratio] 13.4 % Normal 11.5-15.0 [facility] Comment on above: Performed By: #### L [id number] #### [facility] ([facility]) [address] [place] [address] ERYTHROCYTE MEAN CORPUSCULAR HEMOGLOBIN CONCENTRATION (G/DL) BY AUTOMATED 33.3 g/dL Normal 32.0-35.0 [facility] Comment on above: Performed By: #### L [id number] #### [facility] ([facility]) [address] [place] [address] Hematocrit (Bld) [Volume fraction] 35.1 % Low 39.0-55.0 [facility] Comment on above: Performed By: #### L [id number] #### [facility] [address] [place] [address] Hemoglobin (Bld) [Mass/Vol] 11.7 g/dL Low 13.0-17.0 [facility] Comment on above: Performed By: #### L [id number] #### [facility] [address] [place] [address] MCH (RBC) [Entitic mass] 30.5 pg Normal 27.0-33.0 [facility] Comment on above: Performed By: #### L [id number] #### [facility] [address] [place] [address] MCV (RBC) [Entitic vol] 91.6 fL Normal 82.0-98.0 [facility] Comment on above: Performed By: #### L [id number] #### [facility] ([facility]) [address] [place] [address] PLATELETS (10*3/UL) IN BLOOD AUTOMATED COUNT 270 10*3/uL Normal 150-400 [facility] Comment on above: Performed By: #### L [id number] #### [facility] ([facility]) [address] [place] [address] RBC (Bld) [#/Vol] 3.83 10*6/uL Low 4.20-5.70 [facility] Comment on above: Performed By: #### L [id number] #### [facility] ([facility]) [address] [place] [address] WBC (Bld) [#/Vol] 14.40 10*3/uL High 4.00-10.60 [facility] Comment on above: Performed By: #### L [id number] #### [facility] ([facility]) [address] [place] [address] DSon 11-18-2023 DS Admission Admitted 11/17/2023 for Synovial cyst of lumbar facet joint Discharge 11/18/2023 Discharge Diagnosis S/P lumbar laminectomy Principal diagnosis for admission: Lumbar stenosis, lumbar radiculopathy, lumbar synovial cyst Discharge Disposition Home or Self Care () Discharge Medications Your medication list START taking these medications Instructions Last Dose Given Next Dose Due acetaminophen 325 mg tablet Commonly known as: Tylenol Take 2 tablets (650 mg) by mouth every 8 (eight) hours. Use this three times a day for at least the first 2 weeks post-op to help with pain control - you can buy over the counter oxyCODONE 5 mg immediate release tablet Commonly known as: Roxicodone Take 1-2 tablets (5-10 mg) by mouth every 6 (six) hours if needed (for post-op pain (not controlled by tylenol or ibuprofen)) for up to 7 days. tiZANidine 2 mg tablet Commonly known as: Zanaflex Take 1 tablet (2 mg) by mouth every 6 (six) hours if needed for muscle spasms. CHANGE how you take these medications Instructions Last Dose Given Next Dose Due aspirin 81 mg capsule What changed: how much to take when to take this additional instructions Take 81 mg by mouth in the morning. Restart on Thursday11/22/2023 clopidogrel 75 mg tablet Commonly known as: Plavix What changed: additional instructions Take 1 tablet (75 mg) by mouth in the morning. Restart on Thursday11/22/2023 CONTINUE taking these medications Instructions Last Dose Given Next Dose Due amLODIPine 10 mg tablet Commonly known as: Norvasc baclofen 10 mg tablet Commonly known as: Lioresal ergocalciferol 1.25 MG (04732 Units) capsule Commonly known as: Vitamin D-2 gabapentin 100 mg capsule Commonly known as: Neurontin pravastatin 10 mg tablet Commonly known as: Pravachol valsartan 80 mg tablet Commonly known as: Diovan varenicline 0.5 mg tablet Commonly known as: Chantix STOP taking these medications HYDROcodone-acetaminophen 7.5-325 mg tablet Commonly known as: [place] Where to Get Your Medications These medications were sent to [id number] - [place], [place] - [address] [facility] [address] [place] [address] oxyCODONE 5 mg immediate release tablet tiZANidine 2 mg tablet Information about where to get these medications is not yet available Ask your nurse or doctor about these medications acetaminophen 325 mg tablet aspirin 81 mg capsule clopidogrel 75 mg tablet Activity Normal activity as tolerated, You should be up and walking - at least in the house - three times per day, You should avoid heavy lifting > 10 pounds for about a month , Try to limit bending, twisting and lifting, You can shower - it is OK for water to run over the wound, Do not take a tub bath, or get into hot tub/swimming pool for about a month post-op, You should not drive while taking post-op narcotics for pain, FU with either Joellen Benítez CNP or Dr. Madera in about 2 weeks, Call [phone] (Joellen) or [phone] (Dr. Madera) if not already scheduled, Vasile Madera MD Diet Continue on the same type of diet and foods as you were eating before your admission. Drink plenty of water. Allergies Ezetimibe and Kwnxwtr-puj-rlu reductase inhibitors Hospital Course Patient was admitted for routine post-op care after multi-level lumbar surgery. He had pain that was initially treated with IV and oral pain medication and transitioned to primarily oral pain medication. He was doing well on POD#1 and appropriate for discharge home. Pertinent Physical Exam At Time of Discharge Physical Exam Awake, alert Oriented CN intact Speech, cognition intact Motor intact Sensory intact Ambulated well with therapy Wound c/d/i Lab Results Labs Reviewed BASIC METABOLIC PANEL - Abnormal Result Value Sodium 134 (*) Potassium 4.6 Chloride 104 CO2 23 BUN 25 Creatinine 1.51 (*) Glucose 128 (*) Calcium 9.3 Anion Gap 12 eGFR 47.0 (*) BUN/Creatinine Ratio 16.6 CBC - Abnormal Auto WBC 14.40 (*) RBC 3.83 (*) Hemoglobin 11.7 (*) Hematocrit 35.1 (*) MCV 91.6 MCH 30.5 MCHC 33.3 RDW 13.4 Platelets 270 POCT GLUCOSE METER UNSOLICITED RESULTS - Normal Glucose POC 80 Narrative: Waived Testing in the ED is performed under the ED CLIA certificate #[id number]. Nutrition Screen Issues Requiring Follow-Up none Outpatient Follow-Up No future appointments. Test Results Pending At Discharge Vasile Madera MD [facility] 30on 11-17-2023 30 The patient is Moder ately Stable - Low risk of patient condition declining or worsening The patient's goals for the shift include pain control The clinical goals for the shift include comfort Problem: Pain - Adult Goal: Verbalizes/displays adequate comfort level or baseline comfort level Outcome: Progressing Problem: Safety - Adult Goal: Free from fall injury Outcome: Progressing Normal [facility] HPon 11-17-2023 HP H&P reviewed. The santiago contreras was examined and there are no changes to the H&P. Bilateral lumbar decompression - for synovial cyst and for lateral recess stenosis. Vasile Madera MD [facility] OPNOTEon 11-17-2023 OPNOTE Date: 11/17/2023 Loca tion: [facility] OR Name: Yesenia Broussard, : 1945, Diagnosis Pre-op Diagnosis * Synovial cyst of lumbar facet joint [M71.38] * Lumbar stenosis with neurogenic claudication [M48.062] Post-op Diagnosis * Synovial cyst of lumbar facet joint [M71.38] * Lumbar stenosis with neurogenic claudication [M48.062] Procedures L3-L4 Synovial Cyst Resection, Left L4-L5 Lateral Recess Decompression, and [address] - [place] [facility] FACETECTOMY & FORAMOTOMY 1 VRT SGM LUMBAR L5 Foraminal Decompression 22376 - [place] FACETECTOMY&FORAMOT 1 VRT SGM EA ADDL SGM [place] BX/EXC ISPI JUAN JOSE IDRL XMED LUMBAR [51007] Right side L3 hemilaminectomy and resection of epidural lesion other than neoplasm (synovial cyst) Left side L4 hemilaminotomy and partial resection of the medial and lateral facet with foraminotomy for decompression of lateral recess stenosis (compressing the L5 nerve) Right side L5 hemilaminotomy and partial resection of the medial and lateral facet for decompression of lateral recess stenosis (compressing the S1 nerve) Surgeons * Vasile Madera - Primary Procedure Summary Anesthesia: General ASA: III Estimated Blood Loss: Minimal Total IV Fluids: 1000 mL Drains: * None in log * Staff: Chandelier Maker: Kd Lagos RN Relief Scrub: Silke Henry CST Scrub Person: Breanne White CST Pbx Inspector: Bernie Jimenes RN Indications: Yesenia Broussard is an 78 y.o. male who is having surgery for lumbar synovial cyst, lumbar stenosis, neurogenic claudication. Findings: synovial cyst at the right L3-4 area Lateral recess stenosis on the left at L4-5 and right at L5-s1 - there was more severe facet hypertrophy on the left side at L4-5 Complications: None; patient tolerated the procedure well. Disposition: PACU - hemodynamically stable. Condition: stable Specimens Collected: No specimens collected during this procedure. Attending Attestation: I was present and scrubbed for the entire procedure. Vasile Madera [facility] OPNOTE L3-L4 Synovial Cyst Resection, Left L4-L5 Lateral Recess Decompression, and (B), L5 Foraminal Decompression (R) Operative Note Date: 11/17/2023 Location: [facility] OR Name: Yesenia Broussard, : 1945, Diagnosis Pre-op Diagnosis * Synovial cyst of lumbar facet joint [M71.38] * Lumbar stenosis with neurogenic claudication [M48.062] Post-op Diagnosis * Synovial cyst of lumbar facet joint [M71.38] * Lumbar stenosis with neurogenic claudication [M48.062] Procedures L3-L4 Synovial Cyst Resection, Left L4-L5 Lateral Recess Decompression, and [address]2870 - [place] [facility] FACETECTOMY & FORAMOTOMY 1 VRT SGM LUMBAR L5 Foraminal Decompression 59893 - [place] FACETECTOMY&FORAMOT 1 VRT SGM EA ADDL SGM [place] BX/EXC ISPI JUAN JOSE IDRL XMED LUMBAR [59038] Right side L3 hemilaminectomy and resection of epidural lesion other than neoplasm (synovial cyst) Left side L4 hemilaminotomy and partial resection of the medial and lateral facet with foraminotomy for decompression of lateral recess stenosis (compressing the L5 nerve) Right side L5 hemilaminotomy and partial resection of the medial and lateral facet for decompression of lateral recess stenosis (compressing the S1 nerve) Surgeons * Vasile Madera - Primary Procedure Summary Anesthesia: General ASA: III Estimated Blood Loss: Minimal Total IV Fluids: 1000 mL Drains: * None in log * Staff: Chandelier Maker: Kd Lagos RN Relief Scrub: Silke Henry CST Scrub Person: Breanne White CST Pbx Inspector: Bernie Jimenes RN Indications: Yesenia Broussard is an 78 y.o. male who is having surgery for lumbar synovial cyst, lumbar stenosis, neurogenic claudication. Procedure Details: The patient was seen in the preoperative area. The risks, benefits, complications, treatment options, non-operative alternatives, expected recovery and outcomes were discussed with the patient. The possibilities of reaction to medication, pulmonary aspiration, injury to surrounding structures, bleeding, recurrent infection, the need for additional procedures, failure to diagnose a condition, and creating a complication requiring transfusion or operation were discussed with the patient. The patient concurred with the proposed plan, giving informed consent. The site of surgery was properly noted/marked if necessary per policy. The patient has been actively warmed in preoperative area. Preoperative antibiotics have been ordered and given within 1 hours of incision. Venous thrombosis prophylaxis are not indicated. Findings: stenosis (lateral recess) at L4-5 (L) and L5-S1 (R) and synovial cyst (R side) at L3-4 Complications: None; patient tolerated the procedure well. Disposition: PACU - hemodynamically stable. Condition: stable Vasile Caryeder Service: Neurosurgery Attending: Vasile Madera MD Date: 11/17/2023 Preop diagnosis: Multi-level neural compression with bilateral radiculopathy - lateral recess stenosis on the left side at L4-5 (from severe facet hypertrophy) and right side at L5-S1 (from ligament hypertrophy and facet hypertrophy) and right side juxta-facet cyst (synovial cyst) at L3-4 with neural compression and radiculopathy Postop diagnosis: Same Procedure: Right side L3 hemilaminectomy and resection of epidural lesion other than neoplasm (synovial cyst) Left side L4 hemilaminotomy and partial resection of the medial and lateral facet with foraminotomy for decompression of lateral recess stenosis (compressing the L5 nerve) Right side L5 hemilaminotomy and partial resection of the medial and lateral facet for decompression of lateral recess stenosis (compressing the S1 nerve) Anesthesia: General tracheal Estimated blood loss: 40 ml Complications: none Condition: good Postop disposition: Recovery room Indication procedure: Patient has lumbar neural compression - multi-level and bilateral with bilateral radiculopathy. Failed conservative therapy. I counseled the patient about the risks and benefits of diskectomy and they voiced understanding wished to proceed. Operative report in detail: After obtaining written informed consent for the procedure the patient was brought to the operating room kept on the stretcher for induction of anesthesia. After induction general anesthesia intubation the patient was gently rolled in the prone position on the open Robert table. All bony prominences were padded. There was no pressure on the eyes nose or chin. Arms were on arm boards with padding. Feet were on pillows on top of the half table take tension off the back and legs. The patient's back was marked and then prepped and draped in usual sterile fashion. The preoperative time-out completed. Perioperative IV direct prophylactic therapy was instilled. Local anesthetic was instilled at the expected incision site. The midline skin incision was created with a 10 blade scalpel. The subcutaneous tissues divided with Bovie (more content not included)... [facility] POCT GLUCOSE METER UNSOLICIT ED RESULTSon 11-17-2023 Glucose [Mass/Vol] 80 mg/dL Normal 70-105 Poly mor[facility] Comment on above: Order Comment: Wadavion d Testing in the ED is performed under the ED CLIA certificate #[id number]. Result Comment: epaw low Performed By: #### L [id number] ####[facility] (BEAKER)[address] [place] [address] Orders Onlyon 11-13-2023 Orders Only [id number] Dianne Broussard ld 1945 M Date Provider Department Center 11/13/2023 IMAN BURNETTE [facility] Family History Problem Relation Age of Onset Hypertension Mother Diabetes Father Family Status - Relation Status Age at Mother Father Normal [facility] Orders Onlyon 11-10-2023 Orders Only [id number] Dianne Broussard ld 1945 M Date Provider Department Center 11/10/2023 TOM AGUIAR [facility] C Family History Problem Relation Age of Onset Hypertension Mother Diabetes Father Family Status - Relation Status Age at Mother Father Normal [facility] [id number] 11-06-2023 [id number] SURGERY DATE:11/16 Medications to take Morning of surgery:norco Medications to hold Morning of surgery: all am meds Hold plavix 7 days and asa 5 days prior to per Vascular. Medications to hold 5-7 days prior to surgery: NSAIDs: Vitamins and Supplements: IF YOU ARE GOING HOME AFTER YOUR SURGERY OR PROCEDURE, FOR YOUR SAFETY, YOUR SURGERY WILL BE CANCELLED IF BOTH OF THE FOLLOWING ARE NOT AVAILABLE: An adult medical delivery driver over the age of 18, that can receive information about your care after surgery, and drive you home. A responsible adult to stay with you for 24 hours in case of an emergency. Can be same as above. The highest risk of complications is within the first 24 hours after sedation/anesthesia. Nothing to eat or drink after midnight the night before surgery. This includes gum, candy, mints, and lozenges. No alcohol, marijuana, or tobacco products including vaping for 24 hours. Please brush your teeth; don't swallow the toothpaste or water. If you use dentures, wear them but do not use paste. Please leave any other removable dental hardware at home. Do not put in contact lenses. Do not wear perfume, make-up, nail iraqi, or lotions on the day of your surgery or procedure. Follow skin-prep/wipe instructions as below if required. Bring with you: *Insurance card *Photo ID *Medication list *Co-pay for visit/prescriptions If applicable: *Rescue inhalers *Green bracelet from lab *CPAP or BiPAP machine, if staying overnight *Any braces, splints, or equipment ordered preoperatively *Remote controls for implanted devices Leave at home: *Purse/Wallet/Bernal- unless needed for co-pay *Cell phone (can leave with family/friend or place in locker if needed) *Jewelry (including piercings and wedding bands) *If not possible, ask the person who is waiting with you to keep them Children under the age of 12 will not be allowed into patient care areas. We will call you between 3pm and 4pm the day before your surgery to give you an arrival time. If you do not receive this call, have any questions, or need to make any changes, please call [phone]. Notify your surgeon if you develop any illness such as a cold, cough, fever, sore throat or vomiting between now and your surgery. Thank you for entrusting us with your care. [facility] Surgical Services Team Normal [facility] APTTon 11-05-2023 ACTIVATED PARTIAL THROMBOPLASTIN TIME IN PPP BY COAGULATION ASSAY 24.3 Seconds Low 25.0-35.0 [facility] Comment on above: Result Comment: Clin ical significance of the APTT is questionable in the presence of heparin. Performed By: #### L [id number] ####[facility] LAB (BEAKER)[address] [place] [address] BASIC METABOLIC PANELon Anion gap [Moles/Vol] 14 mmol/L Normal 7-20 [facility] Comment on above: Performed By: #### L [id number] #### [facility] (BEAKER) [address] [place] [address] Calcium [Mass/Vol] 9.6 mg/dL Normal 8.6-10.3 [facility] Comment on above: Performed By: #### L [id number] #### [facility] [address] [place] [address] Chloride [Moles/Vol] 105 mmol/L Normal 98-107 [facility] Comment on above: Performed By: #### L [id number] #### [facility] ([facility]) [address] [place] [address] CO2 [Moles/Vol] 23 mmol/L Normal 21-[address] [facility] Comment on above: Performed By: #### L [id number] #### [facility] ([facility]) [address] [place] [address] Creatinine [Mass/Vol] 1.93 mg/dL High 0.70-1.30 [facility] Comment on above: Performed By: #### L [id number] #### [facility] ([facility]) [address] [place] [address] GLOMERULAR FILTRATION RATE ML/MIN/1.73 SQ M.PREDICTED 35.0 mL/min/1.73m*2 Low >60.0 [facility] Comment on above: Result Comment: The [facility]???s estimated glomerular filtration rate (eGFR) will no longer include consideration of race in its calculation. The National Kidney Foundation???s eGFR Task Force developed new recommendations for the estimation of the glomerular filtration rate in the [place] They recommend immediate implementation of the new equation refit without the race variable in all laboratories because the calculation does not include race. In addition to not including race in the calculation and reporting, it included diversity in its development, and has acceptable performance characteristics and potential consequences that do not disproportionately affect any one group of individuals. Performed By: #### L [id number] #### [facility] [address] [place] [address] Glucose [Mass/Vol] 102 mg/dL High 70-100 [facility] Comment on above: Performed By: #### L [id number] #### [facility] (BEAKER) [address] [place] [address] Potassium [Moles/Vol] 4.8 mmol/L Normal 3.5-5.1 [facility] Comment on above: Performed By: #### L [id number] #### [facility] ([facility]) [address] [place] [address] Sodium [Moles/Vol] 137 mmol/L Normal 136-145 [facility] Comment on above: Performed By: #### L [id number] #### [facility] ([facility]) [address] [place] [address] Urea nitrogen [Mass/Vol] 30 mg/dL High 7-25 [facility] Comment on above: Performed By: #### L [id number] #### [facility] ([facility]) [address] [place] [address] UREA NITROGEN/CREATININE (MASS RATIO) IN SER/PLAS 15.5 Normal [facility] Comment on above: Performed By: #### L [id number] #### [facility] ([facility]) [address] [place] [address] CBC WITH AUTO DIFFERENTIALon 11-05-2023 Basophils (Bld) [#/Vol] 0.03 10*3/uL Normal 0.00-0.20 [facility] Comment on above: Performed By: #### L [id number] #### [facility] ([facility]) [address] [place] [address] Basophils/100 WBC (Bld) 0.3 % Normal 0.0-1.0 [facility] Comment on above: Performed By: #### L [id number] #### [facility] ([facility]) [address] [place] [address] Eosinophils (Bld) [#/Vol] 0.13 10*3/uL Normal 0.00-0.50 [facility] Comment on above: Performed By: #### L [id number] #### [facility] ([facility]) [address] [place] [address] Eosinophils/100 WBC (Bld) 1.3 % Normal 0.0-6.0 [facility] Comment on above: Performed By: #### L [id number] #### [facility] ([facility]) [address] [place] [address] Erythrocyte distribution width (RBC) [Ratio] 13.7 % Normal 11.5-15.0 [facility] Comment on above: Performed By: #### L [id number] #### [facility] ([facility]) [address] [place] [address] ERYTHROCYTE MEAN CORPUSCULAR HEMOGLOBIN CONCENTRATION (G/DL) BY AUTOMATED 32.0 g/dL Normal 32.0-35.0 [facility] Comment on above: Performed By: #### L [id number] #### [facility] ([facility]) [address] [address] Hematocrit (Bld) [Volume fraction] 40.9 % Normal 39.0-55.0 [facility] Comment on above: Performed By: #### L [id number] #### [facility] ([facility]) [address] [place] [address] Hemoglobin (Bld) [Mass/Vol] 13.1 g/dL Normal 13.0-17.0 [facility] Comment on above: Performed By: #### L [id number] #### [facility] ([facility]) [address] [place] [address] Immature granulocytes (Bld) [#/Vol] 0.03 10*3/uL Normal 0.00-0.20 [facility] Comment on above: Performed By: #### L [id number] #### [facility] [address] [place] [address] Immature granulocytes/100 WBC (Bld) 0.3 % Normal 0.0-1.0 [facility] Comment on above: Performed By: #### L [id number] #### [facility] (BEAKER) [address] [place] [address] Lymphocytes (Bld) [#/Vol] 1.12 10*3/uL Low 1.20-4.00 [facility] Comment on above: Performed By: #### L [id number] #### [facility] [address] [place] [address] Lymphocytes/100 WBC (Bld) 11.2 % Low 20.0-45.0 [facility] Comment on above: Performed By: #### L [id number] #### [facility] ([facility]) [address] [place] [address] MCH (RBC) [Entitic mass] 29.8 pg Normal 27.0-33.0 [facility] Comment on above: Performed By: #### L [id number] #### [facility] ([facility]) [address] [place] [address] MCV (RBC) [Entitic vol] 93.2 fL Normal 82.0-98.0 [facility] Comment on above: Performed By: #### L [id number] #### [facility] [address] [place] [address] Monocytes (Bld) [#/Vol] 0.85 10*3/uL Normal 0.10-1.00 [facility] Comment on above: Performed By: #### L [id number] #### [facility] [address] [place] [address] Monocytes/100 WBC (Bld) 8.5 % Normal 5.0-12.0 [facility] Comment on above: Performed By: #### L [id number] #### [facility] [address] [place] [address] Neutrophils (Bld) [#/Vol] 7.85 10*3/uL High 1.60-7.60 [facility] Comment on above: Performed By: #### L [id number] #### [facility] (BEAKER) [address] [place] [address] Neutrophils/100 WBC (Bld) 78.4 % High 40.0-72.0 [facility] Comment on above: Performed By: #### L [id number] #### [facility] (BEAKER) [address] [place] [address] NRBC (PER 100 WBCS) BY AUTOMATED COUNT 0.0 % Normal 0 [facility] Comment on above: Performed By: #### L [id number] #### [facility] [address] [place] [address] PLATELETS (10*3/UL) IN BLOOD AUTOMATED COUNT 321 10*3/uL Normal 150-400 [facility] Comment on above: Performed By: #### L [id number] #### [facility] [address] [place] [address] RBC (Bld) [#/Vol] 4.39 10*6/uL Normal 4.20-5.70 [facility] Comment on above: Performed By: #### L [id number] #### [facility] ([facility]) [address] [place] [address] WBC (Bld) [#/Vol] 10.01 10*3/uL Normal 4.00-10.60 [facility] Comment on above: Performed By: #### L [id number] #### [facility] [address] [place] [address] Consulton 11-05-2023 Consult [id number] Dianne Broussard 1945 M Date Provider Department Center 11/05/2023 JOELLEN STANTON [facility] SURG Second Fl Family History Problem Relation Age of Onset Hypertension Mother Diabetes Father Family Status - Relation Status Age at Mother Father Level of Service:63781 [place] OFFICE/OUTPATIENT ESTABLISHED MOD MDM 30 MIN Reason for Visit and Comments: Pre-op Exam [[id number]] - pre op sugery 11/16 L3-4 synovial cyst resection, L4-5 left side lateral recess decompression and right side L5 foraminal decompression Normal [facility] HPon 11-05-2023 HP SUBJECTIVE: Chief complaint: Preoperative visit for resection of right L3-L4 synovial cyst, decompression of left L4-L5 lateral recess, right L5 foraminotomy scheduled for 11/17/[address] [place]. History of present illness: Reports chronic low back pain and bilateral hip pain for many years that does not vary with time of day. Worse with activity. Better with sitting and rest. He does have slight numbness and tingling in his right foot, though he largely denies leg pain. He does have chronic urinary urgency and nocturia due to previous prostate disease. He denies bowel incontinence. He has had previous back surgery in 2019. He saw pain management and is taking [place], which helps some. Did physical therapy in the past. reports they were given clearance to stop Plavix prior to surgery, though they were told they were to continue aspirin. Review of systems: Constitutional: Denies fever, chills. Head: Denies headaches. Eyes: Denies vision change. Reports occasional Ears: Denies change in hearing. Nose/throat: Denies dysphagia. Cardiovascular: Denies chest pain. Respiratory: Denies cough, shortness of breath. Extremities: Denies edema. Genitourinary: Denies incontinence or retention. Reports urinary urgency and nocturia. Gastrointestinal: Denies bowel incontinence. Neurologic: Denies weakness, reports numbness, tingling. Denies unsteady gait, falls. Musculoskeletal: Reports back pain. Skin: Denies rashes, wounds, open sores. Past Medical History: Diagnosis Date Adverse effect of anesthesia 2013 Trouble controlling PB - drops very low Coronary artery disease 2013 Dental disease partial denture Diverticulitis Diverticulitis of colon Diverticulosis Hypertension 1996 Kidney disease Myocardial infarction ([facility]) 1996 PONV (postoperative nausea and vomiting) Prostate cancer ([facility]) PVD (peripheral vascular disease) ([facility]) PVD (peripheral vascular disease) ([facility]) left leg stent Stroke ([facility]) 2012 Past Surgical History: Procedure Laterality Date ANGIOPLASTY 2022 BOWEL RESECTION 1985 CAROTID ENDARTERECTOMY 2013 COLON SURGERY 1985 CORONARY STENT PLACEMENT 1996 EYE SURGERY 2021 SHOULDER SURGERY Bilateral 1979 and 1989 SPINAL CORD DECOMPRESSION TRANSURETHRAL RESECTION OF PROSTATE 2021 Social History Tobacco Use Smoking status: Every Day Packs/day: 0.50 Years: 60.00 Additional pack years: 0.00 Total pack years: 30.00 Types: Cigarettes Passive exposure: Past Smokeless tobacco: Never Substance Use Topics Alcohol use: Not Currently Comment: Have not drank for years Drug use: Never Family History Problem Relation Name Age of Onset Hypertension Mother Cynthia Elliott Diabetes Father Javier Broussard OBJECTIVE: Medications: amLODIPine aspirin capsule baclofen clopidogrel ergocalciferol gabapentin HYDROcodone-acetaminophen pravastatin valsartan varenicline Current Outpatient Medications: amLODIPine (Norvasc) 10 mg tablet, Take 1 tablet by mouth in the morning., Disp: , Rfl: aspirin 81 mg capsule, Take by mouth., Disp: , Rfl: baclofen (Lioresal) 10 mg tablet, Take 10 mg by mouth at bedtime., Disp: , Rfl: clopidogrel (Plavix) 75 mg tablet, Take 75 mg by mouth in the morning., Disp: , Rfl: ergocalciferol (Vitamin D-2) 1.25 MG (20030 Units) capsule, Take 1,250 mcg by mouth 1 (one) time per week., Disp: , Rfl: gabapentin (Neurontin) 100 mg capsule, Take 100 mg by mouth at bedtime., Disp: , Rfl: HYDROcodone-acetaminophen ([place]ton) 7.5-325 mg tablet, TAKE 1 TABLET BY MOUTH THREE TIMES DAILY NEEDED FOR PAIN MUST LAST 30 DAYS, Disp: , Rfl: valsartan (Diovan) 80 mg tablet, Take 80 mg by mouth in the morning., Disp: , Rfl: varenicline (Chantix) 0.5 mg tablet, Take 0.5 mg by mouth in the morning and at bedtime. Take with full glass of water., Disp: , Rfl: pravastatin (Pravachol) 10 mg tablet, Take 10 mg by mouth at bedtime., Disp: , Rfl: Allergies: Allergies Allergen Reactions Ezetimibe GI intolerance Other reaction(s): Nausea/vomiting Mzromff-Vfq-Kjo Reductase Inhibitors Other Muscle/Joint Pain Other Reaction(s): lipitor Exam: Vitals reviewed: No intake/output data recorded. No intake/output data recorded. Accompanied by today. Constitutional: In no apparent distress. Cardiovascular: Heart sounds regular rate and rhythm without appreciable murmur. Chest: Lung sounds clear to auscultation bilaterally. Respirations regular and nonlabored. Abdomen: Soft, nontender, nondistended. Extremities without edema. Skin warm and dry without pallor. Neuro: GCS 15/15. Attention and memory intact. No dysarthria or aphasia. Sensation: Intact to light touch C5-T1 and L2-S1 dermatomes bilaterally. Musculoskeletal: Deltoid 5/5 bilaterally. Triceps 5/5 bilaterally. Biceps 5/5 bilaterally. Finger flexors 5/5 bilaterally. Finger extensors 5/5 bilaterally. Hip flexor (more content not included)... Normal [facility] Labon 11-05-2023 Lab [id number] Dianne Broussard 1945 M Date Provider Department [place] 11/05/20232244-[facility] OPD LAB RESOURCE [facility] OPD [facility] C Family History Problem Relation Age of Onset Hypertension Mother Diabetes Father Family Status - Relation Status Age at Mother Father Normal [facility] MRSA/MSSA DNA NASALon 2023 MRSA DNA Negative Normal Negative [facility] Comment on above: Order Comment: Testi ng methodology is an automated qualitative in vitro diagnostic test for the directdetection and differentiation of Staphylococcus aureus (SA) DNA and methicillin-resistant Staphylococcus aureus (MRSA) DNA from nasal swabs in patients at risk for nasal colonization. The test utilizes real-time polymerase chain reaction (PCR) for the amplification of MRSA/SA DNA and fluorogenic target-specific hybridization probes for the detection of the amplified DNA. A negative result does not preclude nasal colonization. Performed By: #### L [id number] ####[facility] (BEAKER)[address] [place] [address] MSSA DNA Negative Normal Negative [facility] Comment on above: Order Comment: Testi ng methodology is an automated qualitative in vitro diagnostic test for the directdetection and differentiation of Staphylococcus aureus (SA) DNA and methicillin-resistant Staphylococcus aureus (MRSA) DNA from nasal swabs in patients at risk for nasal colonization. The test utilizes real-time polymerase chain reaction (PCR) for the amplification of MRSA/SA DNA and fluorogenic target-specific hybridization probes for the detection of the amplified DNA. A negative result does not preclude nasal colonization. Performed By: #### L [id number] ####[facility] (BEAKER)[address] [place] [address] PROTIME-INRon 11-05-2023 INR IN PPP BY COAGULATION ASSAY 1.01 Normal 0.90-1.10 [facility] Comment on above: Result Comment: ACCC P RECOMMENDED INR FOR WARFARIN THERAPY CONDITION INR PROPHYLAXIS OF VENOUS THROMBOSIS 2-3 (HIGH-RISK SURGERY) TREATMENT OF VENOUS THROMBOSIS 2-3 TREATMENT OF PULMONARY EMBOLISM 2-3 PREVENTION OF SYSTEMIC EMBOLISM: 2-3 ACUTE MYOCARDIAL INFARCTION TISSUE HEART VALVES VALVULAR HEART DISEASE ATRIAL FIBRILLATION RECURRENT SYSTEMIC EMBOLISM MECHANICAL HEART VALVE 2.5-3.5 FROM: ORAL ANTICOAGULANTS. MECHANISM OF ACTION, CLINICAL EFFECTIVENESS, AND OPTIMAL THERAPEUTIC RANGE. CHEST 1995;108:231S-246S. Performed By: #### L [id number] #### [facility] (BEAKER) [address] [place] [address] PROTHROMBIN TIME (PT) IN PPP BY COAGULATION ASSAY 13.3 Seconds Normal 12.3-14.8 [facility] Comment on above: Performed By: #### L [id number] #### [facility] (BEAKER) [address] [place] [address] TYPE AND SCREENon 11-05-2023 AB SCREEN Negative Normal [facility] Comment on above: Performed By: #### L [id number] #### [facility] BLOOD BANK , ABO group Nom (Bld) A Normal [facility] Comment on above: Performed By: #### L [id number] #### [facility] BLOOD BANK , RH TYPE IN BLOOD Positive Normal [facility] Comment on above: Performed By: #### L [id number] #### [facility] BLOOD BANK , US ankle/arm indiceson 10-22 US ankle/[place] [address] Ultrasound Report Signed Patient: Yesenia Broussard MR#: [id number] : 1945 Acct:[id number] Age/Sex: 78 / M ADM Date: 10/15/23 Loc: [facility] Room: Type: [facility] CLI Attending Dr: Jose Martin Mchugh MD Ordering Provider: Jose Martin Mchugh MD Date of Service: 10/15/23 US/US ankle/arm indices: I70.213 Copies to: Jose Martin Mchugh MD LOWER EXTREMITY SEGMENTAL ARTERIAL DOPSCAN (PVR) INDICATION: Surveillance study after prior leg stents. PROCEDURE: Right arm blood pressure is 146 , left is 155 . Pressures at the right ankle are 161 using the posterior tibial artery, and 151 using the dorsalis pedis artery with ankle-brachial index of 1.04 0.97 . Pressures at the left ankle are 155 using the posterior tibial artery, and 141 with ankle-brachial index of 1.00 0.91 . Wave forms by plethysmography are normal. US/US ankle/arm indices IMPRESSION: NO HEMODYNAMICALLY SIGNIFICANT PERIPHERAL VASCULAR OCCLUSIVE DISEASE AT REST IN EITHER LOWER EXTREMITY. Impression dictated by: Jose Martin Mchugh MD10/23/2023 12:10 PM Dictation Location: [place] [address] Tech: Torrie Rossi Transcribed By: LUCY 10/23/23 1210 Dictated By: Jose Martin Mchugh MD 10/23/23 1210 Signed By: 10/23/23 1210 Normal [facility] Lab Reportson 10-05-2023 Lab Reports [id number] Normal [facility] A1C with Estimated Average G franklin 10-01-2023 Glucose [Mass/Vol] 128 mg/dL Normal [facility] Comment on above: Result Comment: PERF ORMED BY: [place] [address] PATHOLOGIST DIAPER MACHINE TENDER ANA HURT M.D. Performed By: #### L IPID, CBC #### [address] HbA1c (Bld) [Mass fraction] 6.1 % High 4.3-5.6 [facility] Comment on above: Result Comment: Incr eased risk for diabetes: 5.7 - 6.4 diabetes: >6.4 glycemic control for adults with diabetes: <7.0 Performed By: #### L IPID, CBC #### [facility] [address] Alanine aminotransferase [En zymatic activity/volume] in Serum or PlasmaOrdered By: Shaikh Dotty on 10-01-2023 ALT [Catalytic activity/Vol] 13 U/L 7-52 [facility] Albumin [Mass/volume] in Ser um or Plasma by Bromocresol green (BCG) dye binding methoOrdered By: Shaikh Dotty on 10-01-2023 Albumin BCG dye [Mass/Vol] 4.2 g/dL 3.5-5.7 [facility] Alkaline phosphatase [Enzyma tic activity/volume] in Serum or PlasmaOrdered By: Shaikh Dotty on 10-01-2023 ALP [Catalytic activity/Vol] 58 U/L 34-104 [facility] Aspartate aminotransferase [ Enzymatic activity/volume] in Serum or PlasmaOrdered By: Shaikh Dotty on 10-01-2023 AST [Catalytic activity/Vol] 13 U/L 13-39 [facility] Basophils Auto (Bld) [#/Vol] Ordered By: Shaikh Dotty on 10-01-2023 Basophils (Bld) [#/Vol] 0.0 10*3/uL 0.0-0.2 [facility] Basophils/100 WBC Auto (Bld) Ordered By: Shaikh Dotty on 10-01-2023 Basophils/100 WBC (Bld) 0.4 % . [facility] Bilirubin.total [Mass/volume ] in Serum or PlasmaOrdered By: Shaikh Dotty on 10-01-2023 Bilirubin [Mass/Vol] 0.3 mg/dL 0.3-1.0 [facility] Calcium [Mass/volume] in Ser um or PlasmaOrdered By: Shaikh Dotty on 10-01-2023 Calcium [Mass/Vol] 9.4 mg/dL 8.6-10.3 [facility] Carbon dioxide, total [Moles /volume] in Serum or PlasmaOrdered By: Shaikh Dotty on 10-01-2023 CO2 [Moles/Vol] 27.0 mmol/L 21.0-31.0 [facility] Chloride [Moles/volume] in S jaime or PlasmaOrdered By: Shaikh Dotty on 10-01-2023 Chloride [Moles/Vol] 108 mmol/L 98-107 [facility] Cholesterol [Mass/volume] in Serum or PlasmaOrdered By: Shaikh Dotty on 10-01-2023 Cholesterol [Mass/Vol] 135 mg/dL 140-200 [facility] Comment on above: Chol less than 200 m g/dl low riskChol 201-239 mg/dl borderline riskChol 240 mg/dl and greater high risk Cholesterol in LDL Calc [Mas s/Vol]Ordered By: Shaikh Dotty on 10-01-2023 Cholesterol in LDL [Mass/Vol] 81 mg/dL 0-100 [facility] Comment on above: LDL ATP III CLASSIFI CATIONLDL less than 100 mg/dL OptimalLDL 100-129 mg/dL Near or above optimalLDL 130-159 mg/dL Borderline highLDL 160-189 mg/dL HighLDL greater than 189 mg/dL Very high Cholesterol in VLDL Calc [Ma ss/Vol]Ordered By: Shaikh Dotty on 10-01-2023 Cholesterol in VLDL [Mass/Vol] 16 mg/dL [facility] Complete Blood Count Auto Di ffon 10-01-2023 Basophils (Bld) [#/Vol] 0.0 10*3/uL Normal 0.0-0.2 [facility] Comment on above: Result Comment: PERF ORMED BY: [place] [address] PATHOLOGIST DIAPER MACHINE TENDER ANA HURT M.D. Performed By: #### L IPID, CBC #### [address] Basophils/100 WBC (Bld) 0.4 % Normal . [facility] Comment on above: Performed By: #### L IPID, CBC #### [facility] [address] [place] [address] [place] Eosinophils (Bld) [#/Vol] 0.2 10*3/uL Normal 0.0-0.45 [facility] Comment on above: Performed By: #### L IPID, CBC #### [facility] [address] Eosinophils/100 WBC (Bld) 2.7 % Normal . [facility] Comment on above: Performed By: #### L IPID, CBC #### [address] Erythrocyte distribution width (RBC) [Ratio] 14.9 % High 12.0-14.8 [facility] Comment on above: Performed By: #### L IPID, CBC #### [address] Hematocrit (Bld) [Volume fraction] 37.2 % Low 38.8-50.0 [facility] Comment on above: Performed By: #### L IPID, CBC #### [address] Hemoglobin (Bld) [Mass/Vol] 12.3 g/dL Low 13.0-17.0 [facility] Comment on above: Performed By: #### L IPID, CBC #### [place] [address] [place] Lymphocytes (Bld) [#/Vol] 1.3 10*3/uL Normal 1.00-4.8 [facility] Comment on above: Performed By: #### L IPID, CBC #### [place] [address] [place] Lymphocytes/100 WBC (Bld) 16.1 % Normal . [facility] Comment on above: Performed By: #### L IPID, CBC #### [place] [address] [place] MCH (RBC) [Entitic mass] 30.5 pg Normal 27.5-35.2 [facility] Comment on above: Performed By: #### L IPID, CBC #### [address] MCV (RBC) [Entitic vol] 92.2 fL Normal 83.5-101 [facility] Comment on above: Performed By: #### L IPID, CBC #### [address] Mean Corpuscular HGB Conc 33.1 g/dL Normal 32.5-35.6 [facility] Comment on above: Performed By: #### L IPID, CBC #### [place] [address] [place] Monocytes (Bld) [#/Vol] 0.6 10*3/uL Normal 0.0-0.8 [facility] Comment on above: Performed By: #### L IPID, CBC #### [address] Monocytes/100 WBC (Bld) 7.6 % Normal . [facility] Comment on above: Performed By: #### L IPID, CBC #### [place] [address] [place] Neutrophils (Bld) [#/Vol] 6.1 10*3/uL Normal 1.8-7.7 [facility] Comment on above: Performed By: #### L IPID, CBC #### [address] Neutrophils/100 WBC (Bld) 73.2 % Normal . [facility] Comment on above: Performed By: #### L IPID, CBC #### [address] NRBC% 0.1 /100{WBC} Normal 0-0.5 [facility] Comment on above: Performed By: #### L IPID, CBC #### [address] Platelet mean volume (Bld) [Entitic vol] 8.7 fL Normal 6.6-10.1 [facility] Comment on above: Performed By: #### L IPID, CBC #### [address] Platelets (Bld) [#/Vol] 270 10*3/uL Normal 150-450 [facility] Comment on above: Performed By: #### L IPID, CBC #### [address] RBC (Bld) [#/Vol] 4.04 10*6/uL Normal 3.90-5.60 [facility] Comment on above: Performed By: #### L IPID, CBC #### [address] WBC (Bld) [#/Vol] 8.3 10*3/uL Normal 4.1-10.5 [facility] Comment on above: Performed By: #### L IPID, CBC #### [address] Comprehensive Metabolic Pane [facility] 10-01-2023 Albumin [Mass/Vol] 4.2 g/dL Normal 3.5-5.7 [facility] Comment on above: Performed By: #### L IPID, CBC #### [address] Albumin/Globulin [Mass ratio] 1.7 {ratio} Normal [facility] Comment on above: Performed By: #### L IPID, CBC #### [address] ALP [Catalytic activity/Vol] 58 U/L Normal 34-104 [facility] Comment on above: Performed By: #### L IPID, CBC #### [address] ALT [Catalytic activity/Vol] 13 U/L Normal 7-52 [facility] Comment on above: Performed By: #### L IPID, CBC #### [address] Anion gap [Moles/Vol] 9.9 mmol/L Normal 6.0-15.0 [facility] Comment on above: Performed By: #### L IPID, CBC #### [address] AST [Catalytic activity/Vol] 13 U/L Normal 13-39 [facility] Comment on above: Performed By: #### L IPID, CBC #### [facility] [address] Bilirubin [Mass/Vol] 0.3 mg/dL Normal 0.3-1.0 [facility] Comment on above: Performed By: #### L IPID, CBC #### [address] Calcium [Mass/Vol] 9.4 mg/dL Normal 8.6-10.3 [facility] Comment on above: Performed By: #### L IPID, CBC #### [address] Chloride [Moles/Vol] 108 mmol/L High 98-107 [facility] Comment on above: Performed By: #### L IPID, CBC #### [address] CO2 [Moles/Vol] 27.0 mmol/L Normal 21.0-31.0 [facility] Comment on above: Performed By: #### L IPID, CBC #### [address] Creatinine [Mass/Vol] 1.89 mg/dL High 0.70-1.30 [facility] Comment on above: Performed By: #### L IPID, CBC #### [place] [address] [place] GFR/1.73 sq M.predicted MDRD (S/P/Bld) [Vol rate/Area] 35.887 mL/min/{1.73_m2} Normal [facility] Comment on above: Performed By: #### L IPID, CBC #### [place] [address] [place] Globulin (S) [Mass/Vol] 2.5 g/dL Normal [facility] Comment on above: Performed By: #### L IPID, CBC #### [facility] [address] [place] [address] [place] Glucose [Mass/Vol] 115 mg/dL High 70-100 [facility] Comment on above: Result Comment: [place] Glucose Reference Range is dependent on time and content of last meal. Glucose of more than 200 mg/dL in a nonstressed, ambulatory subject supports the diagnosis of Diabetes Mellitus. ADA recommended reference range Performed By: #### L IPID, CBC #### [facility] [address] Potassium [Moles/Vol] 4.9 mmol/L Normal 3.5-5.1 [facility] Comment on above: Performed By: #### L IPID, CBC #### [address] Protein [Mass/Vol] 6.7 g/dL Normal 6.4-8.9 [facility] Comment on above: Performed By: #### L IPID, CBC #### [place] [address] [place] Sodium [Moles/Vol] 140 mmol/L Normal 136-145 [facility] Comment on above: Performed By: #### L IPID, CBC #### [facility] [address] Urea nitrogen [Mass/Vol] 33 mg/dL High 7-25 [facility] Comment on above: Performed By: #### L IPID, CBC #### [address] Creatinine [Mass/volume] in Serum or PlasmaOrdered By: Shaikh Dotty on 10-01-2023 Creatinine [Mass/Vol] 1.89 mg/dL 0.70-1.30 [facility] Creatinine [Mass/volume] in UrineOrdered By: Shaikh Dotty on 10-01-2023 Creatinine (U) [Mass/Vol] 164.0 mg/dL [facility] Comment on above: No reference range e stablished Creatinine, Urine (Random)on 10-01-2023 Creatinine, Urine (Random) 164.0 mg/dL Normal [facility] Comment on above: Result Comment: No r eference range established Performed By: #### L IPID, CBC #### [facility] [address] Eosinophils Auto (Bld) [#/Vo l]Ordered By: Shaikh Dotty on 10-01-2023 Eosinophils (Bld) [#/Vol] 0.2 10*3/uL 0.0-0.45 [facility] Eosinophils/100 WBC Auto (Bl d)Ordered By: Shaikh Dotty on 10-01-2023 Eosinophils/100 WBC (Bld) 2.7 % . [facility] Erythrocyte distribution wid th Auto (RBC) [Ratio]Ordered By: Shaikh Dotty on 10-01-2023 Erythrocyte distribution width (RBC) [Ratio] 14.9 % 12.0-14.8 [facility] Globulin Calc (S) [Mass/Vol] Ordered By: Shaikh Dotty on 10-01-2023 Globulin (S) [Mass/Vol] 2.5 g/dL [facility] Glucose [Mass/volume] in Ser um or PlasmaOrdered By: Shaikh Dotty on 10-01-2023 Glucose [Mass/Vol] 115 mg/dL 70-100 [facility] Comment on above: ADA recommended refe rence rangeRandom Glucose Reference Range is dependent on time and content of last meal. Glucose of more than 200 mg/dL in a nonstressed, ambulatory subject supports the diagnosis of Diabetes Mellitus. Glucose mean value [Mass/vol ume] in Blood Estimated from glycated hemoglobinOrdered By: Shaikh Dotty on 10-01-2023 Average glucose Estimated from glycated hemoglobin (Bld) [Mass/Vol] 128 mg/dL [facility] Hematocrit Auto (Bld) [Volum e fraction]Ordered By: Shaikh Dotty on 10-01-2023 Hematocrit (Bld) [Volume fraction] 37.2 % 38.8-50.0 [facility] Hemoglobin A1c percentageOrd ered By: Shaikh Dotty on 05-02-2024 HbA1c (Bld) [Mass fraction] 6.1 % 4.3-5.6 [facility] Comment on above: Increased risk for d iabetes: 5.7 - 6.4diabetes: >6.4glycemic control for adults with diabetes: <7.0 Hemoglobin [Mass/volume] in BloodOrdered By: Shaikh Dotty on 10-01-2023 Hemoglobin (Bld) [Mass/Vol] 12.3 g/dL 13.0-17.0 [facility] Leukocytes [#/volume] correc diana for nucleated erythrocytes in Blood by Automated counOrdered By: Shaikh Dotty on 10-01-2023 WBC corrected for nucl RBC Auto (Bld) [#/Vol] 8.3 10*3/uL 4.1-10.5 [facility] Lipid Panelon 10-01-2023 Cholesterol [Mass/Vol] 135 mg/dL Low 140-200 [facility] Comment on above: Result Comment: Chol less than 200 mg/dl low risk Chol 201-239 mg/dl borderline risk Chol 240 mg/dl and greater high risk Performed By: #### L IPID, CBC #### [facility] [address] [place] [id number] [place] Cholesterol in HDL [Mass/Vol] 38 mg/dL Normal 23-92 [facility] Comment on above: Result Comment: HDL CHOL ATP-III CLASSIFICATION Cardiovascular Risk HDL > or equal to 60 mg/dL LOW HDL < 40 mg/dL HIGH Performed By: #### L IPID, CBC #### [facility] [address] [place] [address] [place] Cholesterol.total/Chol esterol in HDL [Mass ratio] 3.6 {ratio} Normal <5.0 [facility] Comment on above: Performed By: #### L IPID, CBC #### [facility] [address] [place] [address] [place] LDL Cholesterol,Calculated 81 mg/dL Normal 0-100 [facility] Comment on above: Result Comment: LDL ATP III CLASSIFICATION LDL less than 100 mg/dL Optimal LDL 100-129 mg/dL Near or above optimal LDL 130-159 mg/dL Borderline high LDL 160-189 mg/dL High LDL greater than 189 mg/dL Very high Performed By: #### L IPID, CBC #### [facility] [address] Triglyceride w/Reflex 80 mg/dL Normal 0-149 [facility] Comment on above: Result Comment: TRIG ATP III CLASSIFICATION TRIG less than 150 mg/dL Normal TRIG 150-199 mg/dL Borderline high TRIG 200-500 mg/dL High TRIG greater than 500 mg/dL Very high Standard traceable to the Center for Disease Conrtrol and Prevention (CDC) test method. Performed By: #### L IPID, CBC #### [facility] [address] VLDL CHOLESTEROL 16 mg/dL Normal [facility] Comment on above: Performed By: #### L IPID, CBC #### [facility] [address] Lymphocytes Auto (Bld) [#/Vo l]Ordered By: Shaikh Dotty on 10-01-2023 Lymphocytes (Bld) [#/Vol] 1.3 10*3/uL 1.00-4.8 [facility] Lymphocytes/100 WBC Auto (Bl d)Ordered By: Shaikh Dotty on 10-01-2023 Lymphocytes/100 WBC (Bld) 16.1 % . [facility] MCH Auto (RBC) [Entitic mass ]Ordered By: Shaikh Dotty on 10-01-2023 MCH (RBC) [Entitic mass] 30.5 pg 27.5-35.2 [facility] MCHC Auto (RBC) [Mass/Vol]Or dered By: Shaikh Dotty on 10-01-2023 MCHC (RBC) [Mass/Vol] 33.1 g/dL 32.5-35.6 [facility] MCV Auto (RBC) [Entitic vol] Ordered By: Shaikh Dotty on 10-01-2023 MCV (RBC) [Entitic vol] 92.2 fL 83.5-101 [facility] Monocytes Auto (Bld) [#/Vol] Ordered By: Shaikh Dotty on 10-01-2023 Monocytes (Bld) [#/Vol] 0.6 10*3/uL 0.0-0.8 [facility] Monocytes/100 WBC Auto (Bld) Ordered By: Shaikh Dotty on 10-01-2023 Monocytes/100 WBC (Bld) 7.6 % . [facility] Neutrophils Auto (Bld) [#/Vo l]Ordered By: Shaikh Dotty on 10-01-2023 Neutrophils (Bld) [#/Vol] 6.1 10*3/uL 1.8-7.7 [facility] Neutrophils/100 WBC Auto (Bl d)Ordered By: Shaikh Dotty on 10-01-2023 Neutrophils/100 WBC (Bld) 73.2 % . [facility] No Panel InformationOrdered By: Shaikh Dotty on 10-01-2023 Estimated GFR (CKD-EPI) 35.887 mL/Min [facility] Creatinine Clearance (Chem N/A [facility] Nucleated erythrocytes [Pres ence] in Blood by Automated countOrdered By: Shaikh Dotty on 10-01-2023 Nucleated RBC Auto Ql (Bld) 0.1 /100{WBC} 0-0.5 [facility] Orders Onlyon 10-01-2023 Orders Only [id number] Dianne Broussard 1945 M Date Provider Department Center 10/01/2023 [facility] [place] ONC DCC Family History Problem Relation Age of Onset Hypertension Mother Diabetes Father Family Status - Relation Status Age at Mother Father Normal [facility] PSA Total (Not a Screen)on 0 10-01-2023 PSA Total (Not a Screen) 0.420 ng/mL Normal 0.000-4.00 0 [facility] Comment on above: Result Comment: Za benjamin tumor marker results determined by assays using different manufacturers or methods may not be comparable. [facility] retaining room cutter and method: [employer] DXI, CHEMILUMINESCENT IMMUNOASSAY. PERFORMED BY: [address] [address] PATHOLOGIST DIAPER MACHINE TENDER ANA HURT M.D. Performed By: #### L IPID, CBC #### [address] [place] [address] [facility] Platelet mean volume Auto (B ld) [Entitic vol]Ordered By: Shaikh Dotty on 10-01-2023 Platelet mean volume (Bld) [Entitic vol] 8.7 fL 6.6-10.1 [facility] Platelets Auto (Bld) [#/Vol] Ordered By: Shaikh Dotty on 10-01-2023 Platelets (Bld) [#/Vol] 270 10*3/uL 150-450 [facility] Potassium [Moles/volume] in Serum or PlasmaOrdered By: Shaikh Dotty on 10-01-2023 Potassium [Moles/Vol] 4.9 mmol/L 3.5-5.1 [facility] Prostate specific Ag [Mass/v olume] in Serum or PlasmaOrdered By: Barbara Johnston on 10-01-2023 Prostate specific Ag [Mass/Vol] 0.420 ng/mL 0.000-4.00 0 [facility] Comment on above: Serial tumor marker results determined by assays using different manufacturers or methods may not be comparable.[facility] retaining room cutter and method:[employer]ELY [employer] DXI, CHEMILUMINESCENT IMMUNOASSAY. Protein [Mass/volume] in Ser um or PlasmaOrdered By: Shaikh Dotty on 10-01-2023 Protein [Mass/Vol] 6.7 g/dL 6.4-8.9 [facility] Protein [Mass/volume] in Uri neOrdered By: Shaikh Dotty on 10-01-2023 Protein (U) [Mass/Vol] 124 mg/dL 0-9 [facility] RBC Auto (Bld) [#/Vol]Ordere d By: Shaikh Dotty on 10-01-2023 RBC (Bld) [#/Vol] 4.04 10*6/uL 3.90-5.60 [facility] Serum or plasma albumin/glob ulin mass ratioOrdered By: Shaikh Dotty on 10-01-2023 Albumin/Globulin [Mass ratio] 1.7 {ratio} [facility] Serum or plasma anion gap de terminationOrdered By: Shaikh Dotty on 10-01-2023 Anion gap [Moles/Vol] 9.9 mmol/L 6.0-15.0 [facility] Serum or plasma high density lipoprotein (HDL) cholesterol measurementOrdered By: Shaikh Dotty on 10-01-2023 Cholesterol in HDL [Mass/Vol] 38 mg/dL 23-92 [facility] Comment on above: HDL CHOL ATP-III CLA SSIFICATION Cardiovascular RiskHDL > or equal to 60 mg/dL LOWHDL < 40 mg/dL HIGH Serum or plasma total choles terol/high density lipoprotein (HDL) cholesterol mass ratOrdered By: Shaikh Dotty on 10-01-2023 Cholesterol.total/Chol esterol in HDL [Mass ratio] 3.6 {ratio} <5.0 [facility] Sodium [Moles/volume] in Ser um or PlasmaOrdered By: Shaikh Dotty on 10-01-2023 Sodium [Moles/Vol] 140 mmol/L 136-145 [facility] Thyroid Stim Hormone w/Rflxo n 10-01-2023 Thyroid Stim Hormone w/Rflx 1.61 u[iU]/mL Normal 0.45-5.33 [facility] Comment on above: Result Comment: PERF ORMED BY: [place] [address] PATHOLOGIST DIAPER MACHINE TENDER ANA HURT M.D. Performed By: #### L IPID, CBC #### [address] Thyrotropin [Units/volume] i n Serum or PlasmaOrdered By: Shaikh Dotty on 10-01-2023 TSH Qn 1.61 m[IU]/L 0.45-5.33 [facility] Total Protein, Urineon 09-30 Protein (U) [Mass/Vol] 124 mg/dL High 0-9 e [facility] Comment on above: Result Comment: PERF ORMED BY: [place] [address] PATHOLOGIST DIAPER MACHINE TENDER ANA HURT M.D. Performed By: #### L IPID, CBC #### [facility] [address] Triglyceride [Mass/volume] i n Serum or PlasmaOrdered By: Shaikh Dotty on 10-01-2023 Triglyceride [Mass/Vol] 80 mg/dL 0-149 [facility] Comment on above: TRIG ATP III CLASSIF ICATIONTRIG less than 150 mg/dL NormalTRIG 150-199 mg/dL Borderline highTRIG 200-500 mg/dL High TRIG greater than 500 mg/dL Very highStandard traceable to the Center for Disease Conrtrol and Prevention (CDC) test method. Urea nitrogen [Mass/volume] in Serum or PlasmaOrdered By: Shaikh Dotty on 10-01-2023 Urea nitrogen [Mass/Vol] 33 mg/dL 7-25 [facility] WBC Auto (Bld) [#/Vol]Ordere d By: Shaikh Dotty on 10-01-2023 WBC (Bld) [#/Vol] 8.3 10*3/uL 4.1-10.5 [facility] Ambulatory Visit Summaryon 0 09-18-2023 Ambulatory Visit Summary YESENIA BROUSSARD :1945 Visit Date:09/18/2023 Ambulatory Visit Instructions Your Diagnosis Nocturia Erectile dysfunction BPH with urinary obstruction History of prostate cancer History of UTI Your Care Team Attending Physician - Barbara JOHNSTON MD Primary Care Physician - DOTTY MAK, This Is Your Medications List tadalafil (Cialis 20 mg Tab) Contact prescribing physician if questions or concerns acetaminophen-hydrocodone ([place] 5/325 Tab) amlodipine (amLODIPine 5 mg Tab) aspirin (aspirin 81 mg oral capsule) baclofen (baclofen 10 mg Tab) clopidogrel (clopidogrel 75 mg Tab) cranberry (Azo cranberry) ergocalciferol (Vitamin D2 50,000 intl units (1.25 mg) oral capsule) gabapentin (gabapentin 100 mg Cap) nitroglycerin (nitroglycerin 0.4 mg sublingual Tab) pravastatin (pravastatin 10 mg Tab) pravastatin (pravastatin 40 mg Tab) valsartan (valsartan 80 mg Tab) [Image Removed: STOP]Stop taking these medications desmopressin (desmopressin 0.1 mg oral tablet) Procedures Performed Mixed beam EBRT (external beam radiation therapy) (04/23/2022), Transurethral resection of prostate (06/06/2021), Cystoscopy (04/23/2021), Transrectal biopsy of prostate using ultrasound guidance (04/23/2021), Cataracts, Colonoscopy, Endarterectomy, Procedure on back. Discharge Vitals Heart Rate (Peripheral) 76 Respiratory Rate 16 Blood Pressure 128/81 Height 178 cm Height 70 in Weight 92 kg Weight 202.4 lb BMI 29.04 What to do next You Need to Schedule the Following Appointments Follow Up with PRESTON MAK, GLO Ortega When: Where: [address] [place] [address]- Medications What How Much When Instructions Unchanged tadalafil (Cialis 20 mg Tab) 1 Tablets By Mouth As Directed Do not exceed 20mg within 48 hours. Unchanged acetaminophen-hydrocodone ([place] 5/ 325 Tab) By Mouth Every 6 hours Contact prescribing physician if questions or concerns Unchanged amlodipine (amLODIPine 5 mg Tab) By Mouth Every day Contact prescribing physician if questions or concerns Unchanged aspirin (aspirin 81 mg oral capsule) By Mouth Every 4 hours Contact prescribing physician if questions or concerns Unchanged baclofen (baclofen 10 mg Tab) By Mouth 3 times a day Contact prescribing physician if questions or concerns Unchanged clopidogrel (clopidogrel 75 mg Tab) 1 Tablets Contact prescribing physician if questions or concerns Unchanged cranberry (Azo cranberry) Contact prescribing physician if questions or concerns Unchanged ergocalciferol (Vitamin D2 50,000 intl units (1.25 mg) oral capsule) By Mouth Every week Contact prescribing physician if questions or concerns Unchanged gabapentin (gabapentin 100 mg Cap) Contact prescribing physician if questions or concerns Unchanged nitroglycerin (nitroglycerin 0.4 mg sublingual Tab) Contact prescribing physician if questions or concerns Unchanged pravastatin (pravastatin 10 mg Tab) By Mouth Every day Contact prescribing physician if questions or concerns Unchanged pravastatin (pravastatin 40 mg Tab) Contact prescribing physician if questions or concerns Unchanged valsartan (valsartan 80 mg Tab) Contact prescribing physician if questions or concerns What When Comments Stop Taking desmopressin (desmopressin 0.1 mg oral tablet) Allergies ezetimibe Problems Ongoing - Any problem that you are currently receiving treatment for. Anxiety BPH with urinary obstruction Chronic pain disorder Chronic prostatitis Erectile dysfunction Feeling of incomplete bladder emptying Gross hematuria Heart disease History of prostate cancer History of UTI HLD (hyperlipidemia) Hypertension Kidney disease Nocturia Prostate cancer Prostate nodule Prostatitis Recurrent UTI Smoker Umbilical hernia UTI symptoms Patient Survey You may receive a survey via text or e-mail asking about your office visit. Please share your experience with us by completing your survey. We appreciate your feedback and thank you for choosing us for your care. Education Materials Urinary Frequency, Adult Urinary frequency means urinating [...] be told to: ? Keep a bladder diary (more content not included)... Normal [facility] Patient Educationon 09-18-19 Patient Education Urology Urinary Frequency, Adult Urinary [...] keep your urine pale yellow. ? Take pigt-qbj-orzmvvb or prescription medicines. ? Eat foods that are high in fiber, such as beans, whole grains, and fresh fruits and vegetables. ? Limit foods that are high in fat and processed sugars, such as fried or sweet foods. General instructions ? Take npwi-joc-qseaehd and prescription medicines only as told by [...] muscles that help control urination. ? Take uppc-ppz-rdvhnym and prescription medicines only as told by your health care provider. ? Contact a health care provider if your symptoms do not improve or get worse. This information is not intended to replace advice given to you by your health care provider. Make sure you discuss any questions you have with your health care provider. Document Revised: 12/21/2020 Document Reviewed: 12/21/2020 [employer] Patient Education ? 2022 GREE. Lonny [facility] Urology Office/Clinic Noteon 09-18-2023 Urology Office/Clinic Note Chief Complaint 3m to med change HPI Staff 2 month f/u to med change by CHEN Dx: nocturia, ED, hx of prostate cancer (EBRT 03/08/22- 04/23/22), BPH with urinary obstruction (TURP 06/06/21) and hx of UTI D/c Sildenafil at last OV and began Cialis 20mg PRN and also d/c DDAVP at last OV and began Detrol IR 2mg 2 tabs qhs PT took Detrol for a few days, then experienced bone pain & nausea. Stopped the Detrol & went back to DDAVP. Taking 1 tab @ bedtime. Still getting up 4-6x/night due to urge to void. Occasional small voids at that time. Tried Cialis. States it does not work. Mostly concerned with getting up at night. Pt stated he was unable to provide urine specimen at this time. History of Present Illness Tests reviewed: reviewed UA I have reviewed the previous health record information and history for this patient from Dr. Johnston and Neelam James PA-C. I have reviewed and verified the staff HPI to be accurate for this encounter. There have been no associated fever, chills, flank pain, or blood in the urine. Denies any urinary infections since last encounter. Review of Systems PHQ Score Initial Depression Screen Score: 0 SCORE ROS - Provider Constitutional: denies weight loss, denies hot flashes. Eyes: denies eye problems. Gastrointestinal: denies nausea, denies vomiting. Cardiovascular: denies chest pain or angina. Integumentary: no dryness Musculoskeletal: denies musculoskeletal symptoms. ENMT: denies otolaryngeal symptoms. Respiratory: no shortness of breath. Heme/Lymph: denies easy bleeding tendency, denies easy bruising tendency. Psychiatric: no confusion, no anxiety. Genitourinary: See HPI. Physical Exam Vitals & Measurements HR: 76(Peripheral) RR: 16 BP: 128/81 HT: 70 in HT: 178 cm WT: 92 kg WT: 202.4 lb BMI: 29.04 General Appearance: alert, no distress, well nourished, well developed male. Assessment/Plan Last seen by CHEN 07/07/23. 1. Nocturia (R35.1: Nocturia) PVR (cc): 04/21/23 [...] during the day. Failed Terazosin and Oxybutynin. Experienced bone pain and nausea with Detrol. Started on Detrol IR 2mg, 2 tabs qhs. Pt took Detrol for a few days, then experienced SEs. Stopped the Detrol & went back to DDAVP. Taking 1 tab @ bedtime. Still getting up 4-6x per night. Not certain as to what is causing him to wake up. Reports he is not getting any sleep. Pt states he has not had a sleep study done to rule out sleep apnea. Also reports he is on the list to be scheduled for back surgery. Getting up during the night could be caused due to back pain or sleep apnea, not necessarily due to the urge to void. Advised pt to d/c DDAVP and to address other health problems first. -Follow up in 6 mos 2. Erectile dysfunction (N52.9: Male erectile dysfunction, unspecified) KAILYN 1 which is unchanged. Not filled out today. States sxs have worsened over the last few years. Has tried Viagra in the past but d/c due to expense. Denies hx of MIs. Not on Nitro. Pt has not been told he isn't healthy enough for exercise/sex. Failed Sildenafil. Started on Cialis 20mg prn last visit. Reports it is not helping. 3. BPH with urinary obstruction (N40.1: Benign prostatic hyperplasia with lower urinary tract symptoms) S/p TURP 06/06/21. Prior IPSS 14. Not currently taking any prostate meds. See #1. 4. History of prostate cancer (Z85.46: Personal history of malignant neoplasm of prostate) PSA: 04/17/21 - 9.95 11/04/21 - 3.73 12/09/22 - 2.81 11/17/22 - 0.50 05/11/23 - 0.43 Neg TRUS/bx done 04/23/21 due to hard nodule at R base to mid. TURP 06/06/21 - G7 (3+4), GG2. Prostate MRI 11/26/21 - suggestive of developing extraprostatic extension EBRT 03/18/22 - 04/23/22. Last saw Dr. Nazario 05/2023 and continues to follow with rad onc every 6 months. -PSA in 6 mos 5. History of UTI (Z87.440: Personal history of urinary (tract) infections) UCx: Mar 2023 - 100k staph tx'd by nephro w amox Apr 2023 - 15k Staphylococcus aureus, tx'd w/Keflex 07/07/23 - 25k Staphylococcus aureus, tx'd w/ Bactrim UA today shows small blood and large leuks. Follow-up With When Contact Information PRESTON MAK, Barbara Warner, [address] [place] [address]- Additional Instructions: 6 mos w/ PSA Patient Education Urinary Frequency, Adult I, Tabitha Saenz, personally scribed for Dr. Johnston on 09/18/2023 11:55:58. . Documentation recorded by the scribe, Tabitha Saenz, accurately reflects the services(s) I performed and decisions made by me. Authenticated by Dr. Johnston on 09/18/2023 11:59:13. Problem List/Past Medical History Ongoing Anxiety BPH with (more content not included)... Normal [facility] Comment on above: Result Comment: Elec tronically Signed By: Barbara JOHNSTON MD\.br\Date and Time Signed: 09/18/23 11:59 EDT\.br\Electronically Co-Signed By: Tabitha Saenz\.br\Date and Time Co-Signed: 09/18/23 11:56 EDT Orders Onlyon 09-03-2023 Orders Only [id number] Dianne Broussard ld 1945 M Date Provider Department Center 09/03/2023 [id number], HISTORICAL Renees DCC Family History Problem Relation Age of Onset Hypertension Mother Diabetes Father Family Status - Relation Status Age at Mother Father Normal [facility] Office Visiton 09-02-2023 Follow-up visit [id number] Dianne Broussard ld 1945 M Date Provider Department Center 09/02/2023 VASILE DOMINGUEZ ONC [facility] Family History Problem Relation Age of Onset Hypertension Mother Diabetes Father Family Status - Relation Status Age at Mother Father Level of Service:44157 [place] OFFICE/OUTPATIENT NEW MODERATE MDM 45 MINUTES Reason for Visit and Comments: Consult [484] - Low back pain consult Normal [facility] Orders Onlyon 08-28-2023 Orders Only [id number] Dianne Broussard ld 1945 M Date Provider Department Center 08/28/2023 VASILE DOMINGUEZ ONC [facility] No family history on file Normal [facility] ECG 12 Leadon 08-18-2023 Normal sinus rhythm, right bundle branch block and left anterior fascicular block consistent with bifascicular block, abnormal ECG [facility] Work Phone: T Urineon 07-11-2023 Bacteria identified Cx Nom (U) [...] Locations R1: This test was performed at: [facility], [address] [place] [address], [address]- , , [facility] Comment on above: Performed By: #### 2 [id number] ####[facility] [address] [place] [address] Consultation Noteon 07-08-19 Consultation Note [id number]#1.00TIFF [facility] Lab Reportson 07-08-2023 Lab Reports [id number]#1.00TIFF [facility] Patient Educationon 07-07-19 Patient Education Urology Urinary Frequency, Adult Urinary [...] keep your urine pale yellow. ? Take uucp-pae-ftlengh or prescription medicines. ? Eat foods that are high in fiber, such as beans, whole grains, and fresh fruits and vegetables. ? Limit foods that are high in fat and processed sugars, such as fried or sweet foods. General instructions ? Take hqmx-ywc-babdqfn and prescription medicines only as told by [...] muscles that help control urination. ? Take uekj-gmm-bzcsuaf and prescription medicines only as told by your health care provider. ? Contact a health care provider if your symptoms do not improve or get worse. This information is not intended to replace advice given to you by your health care provider. Make sure you discuss any questions you have with your health care provider. Document Revised: 12/21/2020 Document Reviewed: 12/21/2020 [employer] Patient Education ? 2022 GREE. Normal [facility] Urology Office/Clinic Noteon 07-07-2023 Urology Office/Clinic Note [...] Information PRESTON MAK, Barbara Warner, [address] [place] [address]- Additional Instructions: 3 mos Patient Education Urinary Frequency, Adult Documentation recorded by the scribe Tabitha Saenz accurately reflects the services(s) I performed and decisions made (more content not included)... Normal [facility] Comment on above: Result Comment: Elec tronically Signed By: CLAIRE JAMES PA-C\.br\Date and Time Signed: 07/07/23 10:08 EST\.br\Electronically Co-Signed By: Tabitha Saenz\.br\Date and Time Co-Signed: 07/07/23 09:50 EST NUCLEAR STRESS TESTon 2023 NUCLEAR STRESS TEST Interpreted By: Inge Dickerson and Beal Gina STUDY: MYOCARDIAL PERFUSION STRESS TEST WITH LEXISCAN Performing facility: [facility], [address] [place] [address], [address], [place] [id number] [facility] Provider: Sylvester Grayson DO, [facility] PCP: Dr. Agus STORM Supervising provider: Inge Dickerson MD INDICATION: HTN, Bilateral Carotid, Chest Pain HISTORY: Gender: M; Age: 77 y/o ; Height: HT 177.8 cm cm; Weight: WT 89.812 kg kg. CAD; High Cholesterol; Abnormal EKG; RBBB Previous OR; Family HX CAD; Chest Pain; COPD; PAD, CVA, Carotid Disease, CKD Currently smoking. Cardiac catheterization. PTCA 1990s RCA. COMPARISON: No comparison. ACCESSION NUMBER(S): [id number] ORDERING CLINICIAN: CHAIM GRAYSON TECHNIQUE: ONE DAY [...] Inge Dickerson 06/19/2023 11:20 AM Dictation workstation: [id number] [facility] CNOVon 06-12-2023 CNOV Office Visit (SPSLU ) -- YESENIA BROUSSARD ([id number]) 1945 M Date Time Provider Department 06/12/23 [...] heat Medications: See medication reconciliation list in [facility] MEDICATIONS: Hydrocodone, Gabapentin 2017 back surgery with [...] pleasant 77-year-old male who recently moved from [place] to [place]. He reports longstanding history of back and [...] suit/legal clai (more content not included)... Normal [facility] Alanine Aminotransferaseon 0 06-10-2023 ALT [Catalytic activity/Vol] 15 U/L Normal 7-52 [facility] Comment on above: Performed By: #### L IPID, CBC #### [facility] [address] Aspartate Amino Transferaseo n 06-10-2023 AST [Catalytic activity/Vol] 15 U/L Normal 13-39 [facility] Comment on above: Performed By: #### L IPID, CBC #### [facility] [address] [place] [id number] [facility] Basic Metabolic Panelon 06-01 Anion gap [Moles/Vol] 11.2 mmol/L Normal 6.0-15.0 [facility] Comment on above: Performed By: #### L IPID, CBC #### [facility] [address] [place] [address] [place] Calcium [Mass/Vol] 9.3 mg/dL Normal 8.6-10.3 [facility] Comment on above: Performed By: #### L IPID, CBC #### [place] [address] [place] Chloride [Moles/Vol] 108 mmol/L High 98-107 [facility] Comment on above: Performed By: #### L IPID, CBC #### [address] CO2 [Moles/Vol] 25.4 mmol/L Normal 21.0-31.0 [facility] Comment on above: Performed By: #### L IPID, CBC #### [place] [address] [place] Creatinine [Mass/Vol] 1.58 mg/dL High 0.70-1.30 [facility] Comment on above: Performed By: #### L IPID, CBC #### [place] [address] [place] GFR/1.73 sq M.predicted MDRD (S/P/Bld) [Vol rate/Area] 44.772 mL/min/{1.73_m2} Normal [facility] Comment on above: Performed By: #### L IPID, CBC #### [place] [address] [place] Glucose [Mass/Vol] 109 mg/dL High 70-100 [facility] Comment on above: Result Comment: [place] Glucose Reference Range is dependent on time and content of last meal. Glucose of more than 200 mg/dL in a nonstressed, ambulatory subject supports the diagnosis of Diabetes Mellitus. ADA recommended reference range Performed By: #### L IPID, CBC #### [place] [address] [place] Potassium [Moles/Vol] 4.6 mmol/L Normal 3.5-5.1 [facility] Comment on above: Performed By: #### L IPID, CBC #### [address] Sodium [Moles/Vol] 140 mmol/L Normal 136-145 [facility] Comment on above: Performed By: #### L IPID, CBC #### [address] Urea nitrogen [Mass/Vol] 23 mg/dL Normal 7-25 [facility] Comment on above: Performed By: #### L IPID, CBC #### [address] Lipid Panelon 06-10-2023 Cholesterol [Mass/Vol] 139 mg/dL Low 140-200 [facility] Comment on above: Result Comment: Chol less than 200 mg/dl low risk Chol 201-239 mg/dl borderline risk Chol 240 mg/dl and greater high risk Performed By: #### L IPID, CBC #### [address] Cholesterol in HDL [Mass/Vol] 36 mg/dL Normal 23-92 [facility] Comment on above: Result Comment: HDL CHOL ATP-III CLASSIFICATION Cardiovascular Risk HDL > or equal to 60 mg/dL LOW HDL < 40 mg/dL HIGH Performed By: #### L IPID, CBC #### [address] Cholesterol.total/Chol esterol in HDL [Mass ratio] 3.9 {ratio} Normal <5.0 [facility] Comment on above: Result Comment: PERF ORMED BY: [place] [address] PATHOLOGIST DIAPER MACHINE TENDER ANA HURT M.D. Performed By: #### L IPID, CBC #### [address] LDL Cholesterol,Calculated 76 mg/dL Normal 0-100 [facility] Comment on above: Result Comment: LDL ATP III CLASSIFICATION LDL less than 100 mg/dL Optimal LDL 100-129 mg/dL Near or above optimal LDL 130-159 mg/dL Borderline high LDL 160-189 mg/dL High LDL greater than 189 mg/dL Very high Performed By: #### L IPID, CBC #### [facility] [address] Triglyceride w/Reflex 134 mg/dL Normal 0-149 [facility] Comment on above: Result Comment: TRIG ATP III CLASSIFICATION TRIG less than 150 mg/dL Normal TRIG 150-199 mg/dL Borderline high TRIG 200-500 mg/dL High TRIG greater than 500 mg/dL Very high Standard traceable to the Center for Disease Conrtrol and Prevention (CDC) test method. Performed By: #### L IPID, CBC #### [facility] [address] VLDL CHOLESTEROL 26 mg/dL Normal [facility] Comment on above: Performed By: #### L IPID, CBC #### [address] ECG 12 Leadon 06-04-2023 Sinus rhythm, right bundle branch block, left axis deviation, abnormal ECG [facility] Work Phone: Lab Reportson 05-26-2023 Lab Reports [id number]#1.00TIFF Normal [facility] ECG 12 lead ECGon 05-21-2023 ECG 12 lead ECG [facility] [place] [address] [place] [address] Electrocardiograph Report Signed Patient: Yesenia Broussard MR#: [id number] 238 : 1945 Acct:[id number] Age/Sex: 77 / M ADM Date: 05/21/23 Loc: Room: Type: [facility] Attending Dr: Shaikh Dotty MAK Ordering Provider: [...] undetermined Abnormal ECG Confirmed by DEANN [facility]K [facility] ([id number]) on 05/21/2023 5:04:18 PM Referred By: Electronically Signed By:BARBARA CASTELLANOS MD [facility] Transcribed By: MUS Signed By Chaim Castellanos MD 05/21/23 1705 Normal [facility] 05-20-2023 CNPN Telephone (HEMASA) -- YESENIA BROUSSARD ([id number]) 1945 M Date Time Provider Department 05/20/23 CONSTANCE DURAND During your visit today, we recorded the following information about you: Constance Durand LSW 05/20/2023 3:13 PM Signed Patient Declined Social Work Assessment SOCIAL WORK FOLLOW UP NOTE: [facility] Date of service:05/20/23 TOPICS ADDRESSED: [place] PRO report PLAN: Continue follow up as [...] will help to address the ongoing pain. KAROLINE encouraged Nena to have the Patient reach out if additional psychosocial support is needed. SW will remain available and will follow up as appropriate. ASHER Lange-Laney Allergies As of Date: 05/20/2023 (No Known [...] Encounter Status:Closed by CONSTANCE DURAND on 05/20/23 [facility] 05-19-2023 CNOV Office Visit (RADTSA ) -- BOBOYESENIA Warner ([id number]) 1945 M Date Time Provider Department 05/19/23 [...] ASSESSMENT/PLAN: Prostate adenocarcinoma, initial PSA 9.95, biopsy Bastrop score 3 + 4 = 7 (grade [...] MD cc: Shaikh Dotty [address] [place] [address] Allergies As of Date: 05/19/2023 (No Known Allergies) Date Reviewed: 05/19/2023 Reviewed by: Diane Parada LPN - Fully Assessed Reason for Visit: Prostate Cancer [590] Primary Visit Diagnosis:History of prostate cancer [Z85.46] Other Visit Diagnoses:Back pain, unspecified back location, unspecified back pain laterality, unspecified chronicity [M54.9] Lumbar radiculopathy [M54.16] Order(s):PSA/PROSTSPECAG DIAG [SQPSA] Order #: [id number] FUTURE CONSULT TO NEUROSURGERY [19990607] Order #: [id number]: 1 FUTURE Prescriptions as of 05/28/2023 - [...] a day. (more content not included)... Normal [facility] 05-19-2023 [facility] -- YESENIA BROUSSARD ([id number]) 1945 M Date Time Provider Department 05/19/23 Genoveva NAZARIO During your visit today, we recorded the following information about you: Criselda Castle 05/19/2023 2:11 PM Signed Neelam when order is signed can you please send records to Dr Marvin at [facility] thank you! Facesheet in your box Diane Parada LPN 05/20/2023 9:10 [address] Mrs[address] Broussard called stating they contacted one of Dexter's previous physicians at [facility] spine clinic and he will arrange for Dexter to see [facility] neurosurgeon. Please cancel the referral to [facility] neurosurgeon per patient request. MEHNAZ Alexander Jennifer [...] Status:Closed by CRISELDA CASTLE on 05/20/23 Normal [facility] Lab Reportson 05-18-2023 Lab Reports [id number]#1.00TIFF Normal [facility] Lab Reports [id number]#1.00TIFF Normal [facility] Lab Reports [id number]#1.00TIFF Normal [facility] PSA [facility] Prostate specific Ag [Mass/Vol] 0.43 ng/mL Normal <2.60 [facility] Comment on above: Order Comment: Speci men Type: BLOOD SPECIMEN Ordering Facility: [facility] Address: [facility] [place] [address] Result Comment: Tota l PSA test methodology used is the Electrochemiluminescence Immunoassay by [employer]. Total PSA values by differing methodologies cannot be interchanged. Performed By: #### 2 [id number] #### [facility] CLIA [id number] [address] [facility] [place] [address] [place] Physician Orderon 05-06-2023 Physician Order [id number]#1.00TIFF [facility] C Urineon 04-25-2023 Bacteria identified Cx Nom (U) Microbiology PROCEDURE: Urine Culture [R1] SOURCE: U Random BODY SITE: COLLECTED DATE/TIME: 04/21/2023 09:29 EST RECEIVED DATE/TIME: 04/21/2023 17:59 EST START DATE/TIME: 04/21/2023 18:00 EST FREE TEXT SOURCE: CLARIE JAMES PA-C, PA-C, CLAIRE Boswell FINAL REPORTS [...] Locations R1: This test was performed at: [facility], [address] [place] [address], [facility]- , , [facility] Comment on above: Performed By: #### 2 [id number] ####[place] [address] [place] 04-22-2023 Screens [id number]#1.00TIFF [facility] Screens [id number]#1.00TIFF [facility] Ambulatory Visit Summaryon 1 06-21-2022 Ambulatory Visit Summary BOBO YESENIA R :1945 Visit Date:04/21/2023 Ambulatory Visit Instructions Your Diagnosis Nocturia UTI symptoms Erectile dysfunction Prostate cancer BPH with urinary obstruction Tests Performed Urnls Dip Stick Auto w/o Microscopy POC [id number] Your Care Team Attending Physician - BRITNI ENCINAS, CLAIRE Boswell Primary Care Physician - DOTTY MAK, CARREON This Is Your Medications List oxybutynin (oxybutynin 5 mg Tab) Contact prescribing physician if questions or concerns acetaminophen-hydrocodone ([place] 5/325 Tab) amlodipine (amLODIPine 5 mg Tab) [...] CLAIRE JAMES PA-C Where: [facility] Patient Educationon 04-21-20 Patient Education [...] these instructions at home: Medicines ? Take keuh-vcn-pwopmia and prescription medicines only as told by [...] include cig (more content not included)... Normal [facility] Urology Office/Clinic Noteon 04-21-2023 Urology Office/Clinic Note Chief Complaint 2 month F/U178 [facility] Staff Pt here for a 2 month [...] office.*No recent rad onc note found on [employer] or [employer] BPH *No BPH meds at this time* [...] 0.05mg qhs. Rx sent to [facility] in [place]. -Check electrolytes in 1 wk after starting [...] Sildenafil 50mg prn. Rx sent to in [place]. 4. Prostate cancer (C61: Malignant neoplasm of [...] obstruction (N4 (more content not included)... Normal [facility] Comment on above: Result Comment: Elec tronically Signed By: CLAIRE JAMES PA-C\.br\Date and Time Signed: 04/21/23 09:33 EST\.br\Electronically Co-Signed By: Rosario Byrne\.br\Date and Time Co-Signed: 04/21/23 09:14 EST US ankle/arm indiceson 04-16 US ankle/arm indices [facility] [place] [address] Ultrasound Report Signed Patient: Yesenia Broussard MR#: [id number] : 1945 Acct:[id number] Age/Sex: 77 / M ADM Date: 04/16/23 Loc: [facility] Room: Type: [facility] Attending Dr: Jose Martin Mchugh MD Ordering [...] Martin Mchugh MD04/16/2023 1:28 PM Dictation Location: [place] [address] Tech: Torrie Rossi Transcribed By: [facility] 04/16/23 132 Dictated By: Jose Martin Mchugh MD 04/16/231326 Signed By: 04/16/23 132 Normal [facility] Blood Urea Nitrogenon 2022 Urea nitrogen [Mass/Vol] 35 mg/dL High 7-25 [facility] Comment on above: Performed By: #### L IPID, CBC #### [place] [address] [place] Creatinineon 03-23-2023 Creatinine [Mass/Vol] 2.03 mg/dL High 0.70-1.30 [facility] Comment on above: Performed By: #### L IPID, CBC #### [place] [address] [place] Creatinine Clr Calc Pharmacy 34.29 Normal [facility] Comment on above: Result Comment: PERF ORMED BY: [place] [address] PATHOLOGIST DIAPER MACHINE TENDER ANA HURT M.D. Performed By: #### L IPID, CBC #### [place] [address] [place] GFR/1.73 sq M.predicted MDRD (S/P/Bld) [Vol rate/Area] 33.144 mL/min/{1.73_m2} Normal [facility] Comment on above: Performed By: #### L IPID, CBC #### [place] [address] [place] Creatinine [Mass/volume] in Serum or PlasmaOrdered By: Jose Martin Mchugh on 03-23-2023 Creatinine [Mass/Vol] 2.03 mg/dL 0.70-1.30 [facility] No Panel InformationOrdered By: Jose Martin Mchugh on 03-23-2023 Estimated GFR (CKD-EPI) 33.144 mL/Min [facility] Creatinine Clearance (Chem 34.29 [facility] Urea nitrogen [Mass/volume] in Serum or PlasmaOrdered By: Jose Martin Mchugh on 03-23-2023 Urea nitrogen [Mass/Vol] 35 mg/dL 7-25 [facility] Albumin [Mass/volume] in Ser um or Plasma by Bromocresol green (BCG) dye binding methoOrdered By: Theo Thakkar on 03-09-2023 Albumin BCG dye [Mass/Vol] 4.1 g/dL 3.5-5.7 [facility] Automated erythrocytes count in urine sediment (number/area)Ordered By: Theo Thakkar on 03-09-2023 RBC Auto (Urine sed) [#/Area] 5-9 [HPF] 0-4 [facility] Automated leukocytes count i n urine sediment (number/area)Ordered By: Theo Thakkar on 03-09-2023 WBC Auto (Urine sed) [#/Area] Innumerable [HPF] 0-4 [facility] Bilirubin Test strip Ql (U)O rdered By: Theo Thakkar on 03-09-2023 Bilirubin Ql (U) Negative Negative [facility] Calcium [Mass/volume] in Ser um or PlasmaOrdered By: Theo Thakkar on 03-09-2023 Calcium [Mass/Vol] 9.3 mg/dL 8.6-10.3 [facility] Carbon dioxide, total [Moles /volume] in Serum or PlasmaOrdered By: Theo Thakkar on 03-09-2023 CO2 [Moles/Vol] 26.4 mmol/L 21.0-31.0 [facility] Chloride [Moles/volume] in S jaime or PlasmaOrdered By: Theo Thakkar on 03-09-2023 Chloride [Moles/Vol] 104 mmol/L 98-107 [facility] Color Auto (U)Ordered By: Ab bola Thakkar on 03-09-2023 Color (U) Yellow Yellow [facility] Creatinine [Mass/volume] in Serum or PlasmaOrdered By: Theo Thakkar on 03-09-2023 Creatinine [Mass/Vol] 1.83 mg/dL 0.70-1.30 [facility] Creatinine [Mass/volume] in UrineOrdered By: Theo Thakkar on 03-09-2023 Creatinine (U) [Mass/Vol] 162.0 mg/dL 14.0-26.0 [facility] Dipstick and Microscopicon 1 Appearance (U) Cloudy Critically abnormal Clear [facility] Comment on above: Order Comment: Reaso n for Exam Chronic kidney disease, stage III (moderate);Charly hill w cr Name Collection Type:: Clean-Voided Midstream Performed By: #### P TH, RENAL, CUU, MG, PROCRERAT, URIC, [id number], ADDONUAPLUS #### [facility] [address] [place] [address] Bacteria,Urine None Seen Normal None Seen [facility] Comment on above: Order Comment: Reaso n for Exam Chronic kidney disease, stage III (moderate);Charly hill w cr Name Collection Type:: Clean-Voided Midstream Performed By: #### P TH, RENAL, CUU, MG, PROCRERAT, URIC, [id number], ADDONUAPLUS #### [facility] [address] [place] [address] Bilirubin,Urine Negative Normal Negative [facility] Comment on above: Order Comment: Reaso n for Exam Chronic kidney disease, stage III (moderate);Charly hill w cr Name Collection Type:: Clean-Voided Midstream Performed By: #### P TH, RENAL, CUU, MG, PROCRERAT, URIC, [id number], ADDONUAPLUS #### [facility] [address] [place], [place] [id number] [place] Color (U) Yellow Normal Yellow [facility] Comment on above: Order Comment: Reaso n for Exam Chronic kidney disease, stage III (moderate);Charly hill w cr Name Collection Type:: Clean-Voided Midstream Performed By: #### P TH, RENAL, CUU, MG, PROCRERAT, URIC, [id number], ADDONUAPLUS #### [facility] [address] Glucose Ql (U) Normal Normal Normal [facility] Comment on above: Order Comment: Reaso n for Exam Chronic kidney disease, stage III (moderate);Charly hill w cr Name Collection Type:: Clean-Voided Midstream Performed By: #### P TH, RENAL, CUU, MG, PROCRERAT, URIC, [id number], ADDONUAPLUS #### [address] Hyaline Casts,Urine None Seen Normal 0-8 [facility] Comment on above: Order Comment: Reaso n for Exam Chronic kidney disease, stage III (moderate);Charly hill w cr Name Collection Type:: Clean-Voided Midstream Result Comment: PERF ORMED BY: [place] [address] PATHOLOGIST DIAPER MACHINE TENDER ANA HURT M.D. Performed By: #### P TH, RENAL, CUU, MG, PROCRERAT, URIC, [id number], ADDONUAPLUS #### [address] Ketones Ql (U) Negative Normal Negative [facility] Comment on above: Order Comment: Reaso n for Exam Chronic kidney disease, stage III (moderate);Charly hill w cr Name Collection Type:: Clean-Voided Midstream Performed By: #### P TH, RENAL, CUU, MG, PROCRERAT, URIC, [id number], ADDONUAPLUS #### [address] Leukocyte esterase Test strip Ql (U) 4+ High Negative [facility] Comment on above: Order Comment: Reaso n for Exam Chronic kidney disease, stage III (moderate);Charly hill w cr Name Collection Type:: Clean-Voided Midstream Performed By: #### P TH, RENAL, CUU, MG, PROCRERAT, URIC, [id number], ADDONUAPLUS #### [address] Nitrite,Urine Negative Normal Negative [facility] Comment on above: Order Comment: Reaso n for Exam Chronic kidney disease, stage III (moderate);Charly tyron hill w cr Name Collection Type:: Clean-Voided Midstream Performed By: #### P TH, RENAL, CUU, MG, PROCRERAT, URIC, [id number], ADDONUAPLUS #### [address] Occult Blood,Urine 1+ High Negative [facility] Comment on above: Order Comment: Reaso n for Exam Chronic kidney disease, stage III (moderate);Charly tyron hill w cr Name Collection Type:: Clean-Voided Midstream Performed By: #### P TH, RENAL, CUU, MG, PROCRERAT, URIC, [id number], ADDONUAPLUS #### [address] pH (U) 5.5 [pH] Normal 5.0-9.0 [facility] Comment on above: Order Comment: Reaso n for Exam Chronic kidney disease, stage III (moderate);Charly hill w cr Name Collection Type:: Clean-Voided Midstream Performed By: #### P TH, RENAL, CUU, MG, PROCRERAT, URIC, [id number], ADDONUAPLUS #### [address] Protein (U) [Mass/Vol] 100 mg/dL High Negative e [facility] Comment on above: Order Comment: Reaso n for Exam Chronic kidney disease, stage III (moderate);Charly hill w cr Name Collection Type:: Clean-Voided Midstream Performed By: #### P TH, RENAL, CUU, MG, PROCRERAT, URIC, [id number], ADDONUAPLUS #### [address] RBC,Urine 5-9 High 0-4 [facility] Comment on above: Order Comment: Reaso n for Exam Chronic kidney disease, stage III (moderate);Charly tyron kid w cr Name Collection Type:: Clean-Voided Midstream Performed By: #### P TH, RENAL, CUU, MG, PROCRERAT, URIC, [id number], ADDONUAPLUS #### [address] Specificy [place],Urine 1.018 Normal 1.001-1.03 0 [facility] Comment on above: Order Comment: Reaso n for Exam Chronic kidney disease, stage III (moderate);Charly hy kid w cr Name Collection Type:: Clean-Voided Midstream Performed By: #### P TH, RENAL, CUU, MG, PROCRERAT, URIC, [id number], ADDONUAPLUS #### [address] Squamous Epithelial Cell,Urine None Seen Normal 0-2 [facility] Comment on above: Order Comment: Reaso n for Exam Chronic kidney disease, stage III (moderate);Charly hy kid w cr Name Collection Type:: Clean-Voided Midstream Performed By: #### P TH, RENAL, CUU, MG, PROCRERAT, URIC, [id number], ADDONUAPLUS #### [facility] [address] [place] [address] Urobilinogen,Urine Normal Normal Normal [facility] Comment on above: Order Comment: Reaso n for Exam Chronic kidney disease, stage III (moderate);Charly hy kid w cr Name Collection Type:: Clean-Voided Midstream Performed By: #### P TH, RENAL, CUU, MG, PROCRERAT, URIC, [id number], ADDONUAPLUS #### [address] WBC,Urine Innumerable High 0-4 [facility] Comment on above: Order Comment: Reaso n for Exam Chronic kidney disease, stage III (moderate);Charly hy kid w cr Name Collection Type:: Clean-Voided Midstream Performed By: #### P TH, RENAL, CUU, MG, PROCRERAT, URIC, [id number], ADDONUAPLUS #### [facility] [address] [place], [place] [id number] [facility] Glucose [Mass/volume] in Ser um or PlasmaOrdered By: Theo Thakkar on 03-09-2023 Glucose [Mass/Vol] 126 mg/dL 70-100 [facility] Comment on above: ADA recommended refe rence rangeRandom Glucose Reference Range is dependent on time and content of last meal. Glucose of more than 200 mg/dL in a nonstressed, ambulatory subject supports the diagnosis of Diabetes Mellitus. Ketones Auto test strip (U) [Mass/Vol]Ordered By: Theo Thakkar on 03-09-2023 Ketones (U) [Mass/Vol] Negative Negative [facility] - UrinalysisOrder ed By: Theo Thakkar on 03-09-2023 Hyaline casts LM Ql (Urine sed) None seen [LPF] 0-8 [facility] Magnesiumon 03-09-2023 Magnesium [Mass/Vol] 2.2 mg/dL Normal 1.9-2.7 [facility] Comment on above: Order Comment: Reaso n for Exam Chronic kidney disease, stage III (moderate);Charly palomo cr Performed By: #### P TH, RENAL, CUU, MG, PROCRERAT, URIC, [id number], ADDONUAPLUS #### [facility] [address] Magnesium [Mass/volume] in S jaime or PlasmaOrdered By: Theo Thakkar on 03-09-2023 Magnesium [Mass/Vol] 2.2 mg/dL 1.9-2.7 [facility] Nitrite Test strip Ql (U)Ord ered By: Theo Thakkar on 03-09-2023 Nitrite Ql (U) Negative Negative [facility] No Panel InformationOrdered By: Theo Thakkar on 03-09-2023 Estimated GFR (CKD-EPI) 37.537 mL/Min [facility] Creatinine Clearance (Chem N/A [facility] Parathyrin.intact [Mass/volu me] in Serum or PlasmaOrdered By: Theo Thakkar on 03-09-2023 Parathyrin.intact [Mass/Vol] 128.0 pg/mL [facility] Parathyroid Hormone Intacton 03-09-2023 Parathyroid Hormone Intact 128.0 pg/mL High [facility] Comment on above: Order Comment: Reaso n for Exam Chronic kidney disease, stage III (moderate);Charly palomo cr Result Comment: PERF ORMED BY: [place] [address] PATHOLOGIST DIAPER MACHINE TENDER ANA HURT M.D. Performed By: #### P TH, RENAL, CUU, MG, PROCRERAT, URIC, [id number], ADDONUAPLUS #### [facility] [address] Phosphate [Mass/volume] in S jaime or PlasmaOrdered By: Theo Thakkar on 03-09-2023 Phosphate [Mass/Vol] 4.1 mg/dL 3.7-7.2 [facility] Potassium [Moles/volume] in Serum or PlasmaOrdered By: Theo Thakkar on 03-09-2023 Potassium [Moles/Vol] 4.7 mmol/L 3.5-5.1 [facility] Protein Auto test strip (U) [Mass/Vol]Ordered By: Theo Thakkar on 03-09-2023 Protein (U) [Mass/Vol] 100 mg/dL Negative [facility] Protein Creat Ratio Ur Rando mon 03-09-2023 Creatinine, Urine (Random) 162.0 mg/dL High 14.0-26.0 [facility] Comment on above: Order Comment: Reaso n for Exam Chronic kidney disease, stage III (moderate);Charly hy kid w cr Performed By: #### P TH, RENAL, CUU, MG, PROCRERAT, URIC, [id number], ADDONUAPLUS #### [facility] [address] [place] [id number] [facility] Protein (U) [Mass/Vol] 104 mg/dL High 0-9 [facility] Comment on above: Order Comment: Reaso n for Exam Chronic kidney disease, stage III (moderate);Charly hy kid w cr Performed By: #### P TH, RENAL, CUU, MG, PROCRERAT, URIC, [id number], ADDONUAPLUS #### [facility] [address] [place] [address] [facility] Urine Protein/Creatinine Ratio 642 mg/g{Cre} High 0-200 [facility] Comment on above: Order Comment: Reaso n for Exam Chronic kidney disease, stage III (moderate);Charly hy kid w cr Result Comment: PERF ORMED BY: [place] [address] PATHOLOGIST DIAPER MACHINE TENDER ANA HURT M.D. Performed By: #### P TH, RENAL, CUU, MG, PROCRERAT, URIC, [id number], ADDONUAPLUS #### [facility] [address] [place] [address] Protein [Mass/volume] in Uri neOrdered By: Theo Thakkar on 03-09-2023 Protein (U) [Mass/Vol] 104 mg/dL 0-9 [facility] Renal Function Panelon 03-09 Albumin [Mass/Vol] 4.1 g/dL Normal 3.5-5.7 [facility] Comment on above: Order Comment: Reaso n for Exam Chronic kidney disease, stage III (moderate);Charly hy kid w cr Performed By: #### P TH, RENAL, CUU, MG, PROCRERAT, URIC, [id number], ADDONUAPLUS #### [facility] [address] [place] [address] Anion gap [Moles/Vol] 10.3 mmol/L Normal 6.0-15.0 [facility] Comment on above: Order Comment: Reaso n for Exam Chronic kidney disease, stage III (moderate);Charly hy kid w cr Performed By: #### P TH, RENAL, CUU, MG, PROCRERAT, URIC, [id number], ADDONUAPLUS #### [facility] [address] [place] [address] Calcium [Mass/Vol] 9.3 mg/dL Normal 8.6-10.3 [facility] Comment on above: Order Comment: Reaso n for Exam Chronic kidney disease, stage III (moderate);Charly hy kid w cr Performed By: #### P TH, RENAL, CUU, MG, PROCRERAT, URIC, [id number], ADDONUAPLUS #### [facility] [address] Chloride [Moles/Vol] 104 mmol/L Normal 98-107 [facility] Comment on above: Order Comment: Reaso n for Exam Chronic kidney disease, stage III (moderate);Charly hy kid w cr Performed By: #### P TH, RENAL, CUU, MG, PROCRERAT, URIC, [id number], ADDONUAPLUS #### [facility] [address] [place], [place] [id number] [facility] CO2 [Moles/Vol] 26.4 mmol/L Normal 21.0-31.0 [facility] Comment on above: Order Comment: Reaso n for Exam Chronic kidney disease, stage III (moderate);Charly hy kid w cr Performed By: #### P TH, RENAL, CUU, MG, PROCRERAT, URIC, [id number], ADDONUAPLUS #### [facility] [address] [place], [place] [id number] [facility] Creatinine [Mass/Vol] 1.83 mg/dL High 0.70-1.30 [facility] Comment on above: Order Comment: Reaso n for Exam Chronic kidney disease, stage III (moderate);Charly hy kid w cr Performed By: #### P TH, RENAL, CUU, MG, PROCRERAT, URIC, [id number], ADDONUAPLUS #### [facility] [address] [place] [address] GFR/1.73 sq M.predicted MDRD (S/P/Bld) [Vol rate/Area] 37.537 mL/min/{1.73_m2} Normal [facility] Comment on above: Order Comment: Reaso n for Exam Chronic kidney disease, stage III (moderate);Charly hy kid w cr Performed By: #### P TH, RENAL, CUU, MG, PROCRERAT, URIC, [id number], ADDONUAPLUS #### [facility] [address] [place], [place] [id number] [facility] Glucose [Mass/Vol] 126 mg/dL High 70-100 [facility] Comment on above: Order Comment: Reaso n for Exam Chronic kidney disease, stage III (moderate);Charly hy kid w cr Result Comment: [place] Glucose Reference Range is dependent on time and content of last meal. Glucose of more than 200 mg/dL in a nonstressed, ambulatory subject supports the diagnosis of Diabetes Mellitus. ADA recommended reference range Performed By: #### P TH, RENAL, CUU, MG, PROCRERAT, URIC, [id number], ADDONUAPLUS #### [facility] [address] Phosphate [Mass/Vol] 4.1 mg/dL Normal 3.7-7.2 [facility] Comment on above: Order Comment: Reaso n for Exam Chronic kidney disease, stage III (moderate);Charly hy kid w cr Performed By: #### P TH, RENAL, CUU, MG, PROCRERAT, URIC, [id number], ADDONUAPLUS #### [address] Potassium [Moles/Vol] 4.7 mmol/L Normal 3.5-5.1 [facility] Comment on above: Order Comment: Reaso n for Exam Chronic kidney disease, stage III (moderate);Charly hy kid w cr Performed By: #### P TH, RENAL, CUU, MG, PROCRERAT, URIC, [id number], ADDONUAPLUS #### [address] Sodium [Moles/Vol] 136 mmol/L Normal 136-145 [facility] Comment on above: Order Comment: Reaso n for Exam Chronic kidney disease, stage III (moderate);Charly hy kid w cr Performed By: #### P TH, RENAL, CUU, MG, PROCRERAT, URIC, [id number], ADDONUAPLUS #### [facility] [address] [place] [address] [place] Urea nitrogen [Mass/Vol] 30 mg/dL High 7-25 [facility] Comment on above: Order Comment: Reaso n for Exam Chronic kidney disease, stage III (moderate);Charly hy kid w cr Performed By: #### P TH, RENAL, CUU, MG, PROCRERAT, URIC, [id number], ADDONUAPLUS #### [address] [place] [address] [place] Serum or plasma anion gap de terminationOrdered By: Theo Joycer on 03-09-2023 Anion gap [Moles/Vol] 10.3 mmol/L 6.0-15.0 [facility] Sodium [Moles/volume] in Ser um or PlasmaOrdered By: Theo Vivian on 03-09-2023 Sodium [Moles/Vol] 136 mmol/L 136-145 [facility] Specific gravity Auto test s trip (U) [Rel density]Ordered By: Theo Joycer on 03-09-2023 Specific gravity (U) [Rel density] 1.018 1.001-1.03 0 [facility] Squamous epithelial cells de tection in urine sediment by light microscopyOrdered By: Theo Thakkar on 03-09-2023 Epithelial cells.squamous LM Ql (Urine sed) None seen [HPF] 0-2 [facility] Urate [Mass/volume] in Serum or PlasmaOrdered By: Theo Thakkar on 03-09-2023 Urate [Mass/Vol] 7.1 mg/dL 4.4-7.6 [facility] Urea nitrogen [Mass/volume] in Serum or PlasmaOrdered By: Theo Joycer on 03-09-2023 Urea nitrogen [Mass/Vol] 30 mg/dL 7-25 [facility] Uric Acidon 03-09-2023 Urate [Mass/Vol] 7.1 mg/dL Normal 4.4-7.6 [facility] Comment on above: Order Comment: Reaso n for Exam Chronic kidney disease, stage III (moderate);Charly hy kid w cr Performed By: #### P TH, RENAL, CUU, MG, PROCRERAT, URIC, [id number], ADDONUAPLUS #### [facility] [address] Urine Cultureon 03-09-2023 Bacteria identified Cx Nom (U) ORGANISM: Staphylococcus aureus (O:STAAUR) [place] Count >100,000 Aerobic ROSLYN Charge (PCMIC38) SUSCEPTIBILITY [...] RESISTANT TO ALL B-LACTAM DRUGS. PERFORMED BY: [place] [address] PATHOLOGIST DIAPER MACHINE TENDER ANA HURT M.D. Normal [facility] Comment on above: Performed By: #### L IPID, CBC #### [address] Urine bacteria detection by automated methodOrdered By: Theo Thakkar on 03-09-2023 Bacteria Auto Ql (U) None seen None Seen [facility] Urine clarity by refractomet ry automatedOrdered By: Theo Thakkar on 03-09-2023 Clarity Refractometry automated (U) Cloudy Clear [facility] Urine culture routineOrdered By: Theo Thakkar on 03-09-2023 Bacteria identified Cx Nom (U) Staphylococcus aureus [facility] Bacteria identified Cx Nom (U) Staphylococcus aureus [facility] Urine glucose measurement by automated test strip (mass/volume)Ordered By: Theo Thakkar on 03-09-2023 Glucose Auto test strip (U) [Mass/Vol] Normal mg/dL Normal [facility] Urine hemoglobin detection b y automated test stripOrdered By: Theo Thakkar on 03-09-2023 Hemoglobin Auto test strip Ql (U) 1+ Negative [facility] Urine leukocyte esterase det ection by automated test stripOrdered By: Theo Thakkar on 03-09-2023 Leukocyte esterase Auto test strip Ql (U) 4+ Negative [facility] Urine protein/creatinine rat ioOrdered By: Theo Thakkar on 03-09-2023 Protein/Creatinine (U) [Ratio] 642 mg/g{Cre} 0-200 [facility] Urobilinogen Auto test strip (U) [Mass/Vol]Ordered By: Theo Thakkar on 03-09-2023 Urobilinogen (U) [Mass/Vol] Normal mg/dL Normal [facility] Vitamin D 25 Hydroxy Totalon 03-09-2023 Vitamin D 25 Hydroxy Total 18.9 ng/mL Low 30-100 [facility] Comment on above: Order Comment: Reaso n for Exam Chronic kidney disease, stage III (moderate);Charly hy kid w cr Result Comment: [place] MIN D STATUS 25([place])VITAMIN D RANGE (ng/mL) Deficient <20 Insufficient 20 to <30 Sufficient 30 to 100 Reference: Wayne Patterson, John RIVERS, et al. Evaluation,treatment, and prevention of vitamin D deficiency; an Endocrine Society clinical practice guideline. JCEM. 2010; 96(7):1911-30. PERFORMED BY: [place] [address] PATHOLOGIST DIAPER MACHINE TENDER ANA HURT M.D. Performed By: #### P TH, RENAL, CUU, MG, PROCRERAT, URIC, [id number], ADDONUAPLUS #### [address] Vitamin D+Metabolites [Mass/ volume] in Serum or PlasmaOrdered By: Theo Thakkar on 03-09-2023 Vitamin D+Metabolites [Mass/Vol] 18.9 ng/mL 30-100 [facility] Comment on above: VITAMIN D STATUS 25( [place])VITAMIN D RANGE (ng/mL) Deficient <20 Insufficient 20 to <30Sufficient 30 to 100Reference: Wayne Patterson, John RIVERS, et al. Evaluation,treatment, and prevention of vitamin D deficiency; an Endocrine Society clinical practice guideline. JCEM. 2010; 96(7):1911-30. pH Auto test strip (U)Ordere d By: Theo Thakkar on 03-09-2023 pH (U) 5.5 [pH] 5.0-9.0 [facility] US art pvr/post Kaleb 023 US art pvr/post LE [facility] [place] [address] Ultrasound Report Signed Patient: Yesenia Broussard MR#: [id number] 238 : 1945 Acct:[id number] Age/Sex: 77 / M ADM Date: 03/05/23 Loc: Room: Type: [facility] Attending Dr: Jose Martin Mchugh MD Ordering [...] Sean Vick M.D.03/06/2023 2:55 PM Dictation Location: [place] [address] Tech: Torrie Enid Transcribed By: LUCY 03/06/231454 Dictated By: Sean Vick MD 03/06/231451 Signed By: 03/06/231454 Normal [facility] US carotid doppler BIon 10-0 US carotid doppler BI [facility] [place] [address] [place] [address] Ultrasound Report Signed Patient: Yesenia Broussard MR#: [id number] 238 : 1945 Acct:[id number] Age/Sex: 77 / M ADM Date: 03/04/23 Loc: Room: Type: [facility] Attending Dr: Jose Martin Mchugh MD Ordering [...] Sean Vick M.D.03/04/2023 1:55 PM Dictation Location: [place] [address] Tech: Joellen Brooks Transcribed By: LUCY 03/04/23 1355 Dictated By: Sean Vick MD 03/04/23 1352 Signed By: 03/04/23 1355 Normal [facility] XR pre/post mri xrayon 02-20 XR pre/post mri xray [facility] [place] [address] MRI Report Signed Patient: Yesenia Broussard MR#: [id number] 238 : 1945 Acct:[id number] Age/Sex: 77 / M ADM Date: 02/20/23 Loc: [place] Room: Type: [facility] Attending Dr: Lyla Nazario MD Copies to: Genoveva Nazario MD Ordering Provider: Genoveva Nazario MD Date of Service: 02/20/23 MR/MR lumbar spine wo/w con: [id number] ([id number]) XR/XR pre/post mri xray: LSP MR lumbar [...] Ty Womack M.D.02/20/2023 2:24 PM Dictation Location: [place] [id number] Transcribed By: [facility] 02/20/23 1424 Dictated By: Ty Womack II, MD 02/20/23 1414 Signed By: 02/20/23 1424 Normal [facility] Ambulatory Visit Summaryon 0 02-11-2023 Ambulatory Visit Summary BOBODEXTERYESENIA R :1945 Visit Date:02/11/2023 Ambulatory Visit Instructions Your Diagnosis Nocturia Prostate cancer BPH with urinary obstruction Your Care Team Attending Physician - CLAIRE JAMES PA-C Primary Care Physician - DOTTY MAK, This Is Your Medications List oxybutynin (oxybutynin 5 mg Tab) Contact prescribing physician if questions or concerns acetaminophen-hydrocodone ([place] 5/325 Tab) amlodipine (amLODIPine 5 mg Tab) [...] CLAIRE JAMES PA-C Where: [facility] Patient Educationon 02-12-20 Patient Education Urology Benign [...] Follow these instructions at home: ? Take shsd-lgm-eqakeii and prescription medicines only as told by [...] the medicine (more content not included)... Normal [facility] Urology Office/Clinic Noteon 02-11-2023 Urology Office/Clinic Note [...] ENCINAS, CLAIRE Boswell, URL In 8 weeks [address] [place] [address] Additional Instructions: Patient Education Benign Prostatic Hyperplasia [...] Cap lisinopril 20 mg Tab, Oral, Daily [place] 5/325 Tab, Oral, q6hr oxybutynin 5 mg [...] Not G (more content not included)... Normal [facility] Comment on above: Result Comment: Elec tronically Signed By: CLAIRE JAMES PA-C\.br\Date and Time Signed: 02/11/23 15:56 EDT\.br\Electronically Co-Signed By: Ave Lincoln\.br\Date and Time Co-Signed: 02/11/23 15:19 EDT CNPNon 01-20-2023 STEPH Telephone (HEMASA) -- YESENIA BROUSSARD ([id number]) 1945 M Date Time Provider Department 01/20/23 [...] NA External: N/A Follow up appointment with KAROLINE in: PRN Assigned SW listed in Care Team tab: Yes Patient appears on the PRO Taussig SW Report for a PHQ-9 score of [...] appropriate. ASHER Lange-Laney Allergies As of Date: 01/20/2023 (No Known [...] Encounter Status:Closed by CONSTANCE DURAND on 01/20/23 [facility] CNOVon 01-19-2023 CNOV [facility] -- YESENIA BROUSSARD ([id number]) 1945 M Date Time Provider Department 01/19/23 1:00 PM JOSE NICHOLS During your visit today, we recorded the following information about you: Pulse Blood pressure Weight 48/minute 122/58 92.6 kg Jose Nichols DO 02/16/2023 2:27 AM Signed [facility] - Medical Spine Initial [...] lumbar decompression and partial discectomy L4-5 at [facility] [place] . Now follows with Pain Management in [place], [place]. Received opinion from his son's spine surgeon Dr. Farias in [place]. After review of imaging he was offered L4-S1 ALIF with posterior L4-S1 robotic assisted fusion. Since they do not live in [place] he was recommended to seek consultation at [facility]. Pain is located midline and bilateral low [...] spine interventions: -Lumbar procedures with Pain Management [facility] Dr. Oliva. -RFA ordered following MBB #2 01/07/22 BL L2, L3, L4, L5 MBB - 95% relief same day 12/17/21 BL L2, L3, L4, L5 MBB - 90% relief x 1 hour, then 50% for a few hours -Lumbar injections in [place] prior to surgery. Had at least a few injections, including RFA, LESI, SIJ, he remembers one of the injections helping. Prior spine surgery: L4-5 Previously treated by: -Pain Management at [facility] in [place], [place], Dr. Barbara Farias on 07/07/22 virtual [...] See below Social: Home life: Moved to [place] 2020. Litigation: No Workers' Compensation: No YELLOW AND BLUE FLAGS No-Neg Attitude; Back Pain is Disabling No-Avoiding Activity (f (more content not included)... Normal [facility] Auth for Release of Medical Records 01-15-2023 Auth for Release of Medical Records [id number] Normal [facility] 01-15-2023 CNPN Telephone (4CQ) -- YESENIA BROUSSARD ([id number]) 1945 M Date Time Provider Department 01/15/23 [...] calling: self Call patient at: at home [phone] (home) [phone] (cell) Was an appointment scheduled: No Closing statement: Results or non-symptom based questions: Thank you for calling [facility], your call will be returned within the next business day. Julianna Pozo RN 01/15/2023 3:01 PM Signed Forwarding to provider for review. New NI patient. Julianna Yuan RN 01/16/2023 8:29 AM Signed Jose Nichols, DO You 14 hours ago (5:29 PM) It looks like there is an MRI lumbar from last year, so I guess we could base our discussion off that for now, unless he had back surgery since then. Just let him know that we will likely need a follow up after the new MRI. Thanks Julianna uYan RN 01/16/2023 8:29 AM Signed Left message on [employer] for patient to call office back or to read PLUQ message. Allergies As of Date: 01/15/2023 (No Known Allergies) Date Reviewed: 11/19/2022 Reviewed by: Elizabeth Freire APRN.EMISSION SPECIALIST - Fully Assessed Reason for Visit: Orders [...] Status:Closed by JULIANNA YUAN on 01/19/23 Normal [facility] Alanine aminotransferase [En zymatic activity/volume] in Serum or PlasmaOrdered By: Shaikh Dotty on 01-09-2023 ALT [Catalytic activity/Vol] 12 U/L 7-52 [facility] Albumin [Mass/volume] in Ser um or Plasma by Bromocresol green (BCG) dye binding methoOrdered By: Shaikh Dotty on 01-09-2023 Albumin BCG dye [Mass/Vol] 4.2 g/dL 3.5-5.7 [facility] Alkaline phosphatase [Enzyma tic activity/volume] in Serum or PlasmaOrdered By: Shaikh Dotty on 01-09-2023 ALP [Catalytic activity/Vol] 66 U/L 34-104 [facility] Aspartate aminotransferase [ Enzymatic activity/volume] in Serum or PlasmaOrdered By: Shaikh Dotty on 01-09-2023 AST [Catalytic activity/Vol] 13 U/L 13-39 [facility] Basophils Auto (Bld) [#/Vol] Ordered By: Shaikh Dotty on 01-09-2023 Basophils (Bld) [#/Vol] 0.0 10*3/uL 0.0-0.2 [facility] Basophils/100 WBC Auto (Bld) Ordered By: Shaikh Dotty on 01-09-2023 Basophils/100 WBC (Bld) 0.5 % . [facility] Bilirubin.total [Mass/volume ] in Serum or PlasmaOrdered By: Shaikh Dotty on 01-09-2023 Bilirubin [Mass/Vol] 0.3 mg/dL 0.3-1.0 [facility] Calcium [Mass/volume] in Ser um or PlasmaOrdered By: Shaikh Dotty on 01-09-2023 Calcium [Mass/Vol] 9.2 mg/dL 8.6-10.3 [facility] Carbon dioxide, total [Moles /volume] in Serum or PlasmaOrdered By: Shaikh Dotty on 01-09-2023 CO2 [Moles/Vol] 26.1 mmol/L 21.0-31.0 [facility] Chloride [Moles/volume] in S jaime or PlasmaOrdered By: Shaikh Dotty on 01-09-2023 Chloride [Moles/Vol] 109 mmol/L 98-107 [facility] Cholesterol [Mass/volume] in Serum or PlasmaOrdered By: Shaikh Dotty on 01-09-2023 Cholesterol [Mass/Vol] 178 mg/dL 140-200 [facility] Comment on above: Chol less than 200 m g/dl low riskChol 201-239 mg/dl borderline riskChol 240 mg/dl and greater high risk Cholesterol in LDL Calc [Mas s/Vol]Ordered By: Shaikh Dotty on 01-09-2023 Cholesterol in LDL [Mass/Vol] 115 mg/dL 0-100 [facility] Comment on above: LDL ATP III CLASSIFI CATIONLDL less than 100 mg/dL OptimalLDL 100-129 mg/dL Near or above optimalLDL 130-159 mg/dL Borderline highLDL 160-189 mg/dL HighLDL greater than 189 mg/dL Very high Cholesterol in VLDL Calc [Ma ss/Vol]Ordered By: Shaikh Dotty on 01-09-2023 Cholesterol in VLDL [Mass/Vol] 32 mg/dL [facility] Complete Blood Count Auto Di ffon 01-09-2023 Basophils (Bld) [#/Vol] 0.0 10*3/uL Normal 0.0-0.2 [facility] Comment on above: Result Comment: PERF ORMED BY: [place] [address] PATHOLOGIST DIAPER MACHINE TENDER ANA HURT M.D. Performed By: #### L IPID, CBC #### [facility] [address] [place] [address] [place] Basophils/100 WBC (Bld) 0.5 % Normal . [facility] Comment on above: Performed By: #### L IPID, CBC #### [facility] [address] [place] [address] [place] Eosinophils (Bld) [#/Vol] 0.2 10*3/uL Normal 0.0-0.45 [facility] Comment on above: Performed By: #### L IPID, CBC #### [address] Eosinophils/100 WBC (Bld) 3.9 % Normal . [facility] Comment on above: Performed By: #### L IPID, CBC #### [address] Erythrocyte distribution width (RBC) [Ratio] 14.6 % Normal 12.0-14.8 [facility] Comment on above: Performed By: #### L IPID, CBC #### [address] Hematocrit (Bld) [Volume fraction] 40.3 % Normal 38.8-50.0 [facility] Comment on above: Performed By: #### L IPID, CBC #### [address] Hemoglobin (Bld) [Mass/Vol] 13.3 g/dL Normal 13.0-17.0 [facility] Comment on above: Performed By: #### L IPID, CBC #### [address] Lymphocytes (Bld) [#/Vol] 1.1 10*3/uL Normal 1.00-4.8 [facility] Comment on above: Performed By: #### L IPID, CBC #### [place] [address] [place] Lymphocytes/100 WBC (Bld) 19.3 % Normal . [facility] Comment on above: Performed By: #### L IPID, CBC #### [address] MCH (RBC) [Entitic mass] 30.0 pg Normal 27.5-35.2 [facility] Comment on above: Performed By: #### L IPID, CBC #### [address] MCV (RBC) [Entitic vol] 91.2 fL Normal 83.5-101 [facility] Comment on above: Performed By: #### L IPID, CBC #### [facility] [address] Mean Corpuscular HGB Conc 32.9 g/dL Normal 32.5-35.6 [facility] Comment on above: Performed By: #### L IPID, CBC #### [facility] [address] [place] [address] [place] Monocytes (Bld) [#/Vol] 0.5 10*3/uL Normal 0.0-0.8 [facility] Comment on above: Performed By: #### L IPID, CBC #### [address] Monocytes/100 WBC (Bld) 8.7 % Normal . [facility] Comment on above: Performed By: #### L IPID, CBC #### [address] Neutrophils (Bld) [#/Vol] 3.8 10*3/uL Normal 1.8-7.7 [facility] Comment on above: Performed By: #### L IPID, CBC #### [place] [address] [place] Neutrophils/100 WBC (Bld) 67.6 % Normal . [facility] Comment on above: Performed By: #### L IPID, CBC #### [place] [address] [place] NRBC% 0.1 /100{WBC} Normal 0-0.5 [facility] Comment on above: Performed By: #### L IPID, CBC #### [place] [address] [place] Platelet mean volume (Bld) [Entitic vol] 9.7 fL Normal 6.6-10.1 [facility] Comment on above: Performed By: #### L IPID, CBC #### [place] [address] [place] Platelets (Bld) [#/Vol] 173 10*3/uL Normal 150-450 [facility] Comment on above: Performed By: #### L IPID, CBC #### [address] RBC (Bld) [#/Vol] 4.42 10*6/uL Normal 3.90-5.60 [facility] Comment on above: Performed By: #### L IPID, CBC #### [address] WBC (Bld) [#/Vol] 5.6 10*3/uL Normal 4.1-10.5 [facility] Comment on above: Performed By: #### L IPID, CBC #### [address] Comprehensive Metabolic Pane [facility] 01-09-2023 Albumin [Mass/Vol] 4.2 g/dL Normal 3.5-5.7 [facility] Comment on above: Order Comment: PT FA STED 12 HOURS Performed By: #### L IPID, CBC #### [address] Albumin/Globulin [Mass ratio] 1.6 {ratio} Normal [facility] Comment on above: Order Comment: PT FA STED 12 HOURS Performed By: #### L IPID, CBC #### [address] ALP [Catalytic activity/Vol] 66 U/L Normal 34-104 [facility] Comment on above: Order Comment: PT FA STED 12 HOURS Result Comment: PERF ORMED BY: [place] [address] PATHOLOGIST DIAPER MACHINE TENDER ANA HURT M.D. Performed By: #### L IPID, CBC #### [address] ALT [Catalytic activity/Vol] 12 U/L Normal 7-52 [facility] Comment on above: Order Comment: PT FA STED 12 HOURS Performed By: #### L IPID, CBC #### [address] Anion gap [Moles/Vol] 9.8 mmol/L Normal 6.0-15.0 [facility] Comment on above: Order Comment: PT FA STED 12 HOURS Performed By: #### L IPID, CBC #### [facility] [address] AST [Catalytic activity/Vol] 13 U/L Normal 13-39 [facility] Comment on above: Order Comment: PT FA STED 12 HOURS Performed By: #### L IPID, CBC #### [facility] [address] [place] [address] [place] Bilirubin [Mass/Vol] 0.3 mg/dL Normal 0.3-1.0 [facility] Comment on above: Order Comment: PT FA STED 12 HOURS Performed By: #### L IPID, CBC #### [facility] [address] [place] [address] [place] Calcium [Mass/Vol] 9.2 mg/dL Normal 8.6-10.3 [facility] Comment on above: Order Comment: PT FA STED 12 HOURS Performed By: #### L IPID, CBC #### [facility] [address] [place] [address] [place] Chloride [Moles/Vol] 109 mmol/L High 98-107 [facility] Comment on above: Order Comment: PT FA STED 12 HOURS Performed By: #### L IPID, CBC #### [facility] [address] [place] [address] [place] CO2 [Moles/Vol] 26.1 mmol/L Normal 21.0-31.0 [facility] Comment on above: Order Comment: PT FA STED 12 HOURS Performed By: #### L IPID, CBC #### [facility] [address] [place] [address] [place] Creatinine [Mass/Vol] 1.80 mg/dL High 0.70-1.30 [facility] Comment on above: Order Comment: PT FA STED 12 HOURS Performed By: #### L IPID, CBC #### [facility] [address] [place] [address] [place] GFR/1.73 sq M.predicted MDRD (S/P/Bld) [Vol rate/Area] 38.289 mL/min/{1.73_m2} Normal [facility] Comment on above: Order Comment: PT FA STED 12 HOURS Performed By: #### L IPID, CBC #### [facility] [address] [place] [address] [place] Globulin (S) [Mass/Vol] 2.7 g/dL Normal [facility] Comment on above: Order Comment: PT FA STED 12 HOURS Performed By: #### L IPID, CBC #### [facility] [address] [place] [address] [place] Glucose [Mass/Vol] 114 mg/dL High 70-100 [facility] Comment on above: Order Comment: PT FA STED 12 HOURS Result Comment: [place] om Glucose Reference Range is dependent on time and content of last meal. Glucose of more than 200 mg/dL in a nonstressed, ambulatory subject supports the diagnosis of Diabetes Mellitus. ADA recommended reference range Performed By: #### L IPID, CBC #### [facility] [address] [place] [address] [place] Potassium [Moles/Vol] 4.9 mmol/L Normal 3.5-5.1 [facility] Comment on above: Order Comment: PT FA STED 12 HOURS Performed By: #### L IPID, CBC #### [facility] [address] [place] [address] [place] Protein [Mass/Vol] 6.9 g/dL Normal 6.4-8.9 [facility] Comment on above: Order Comment: PT FA STED 12 HOURS Performed By: #### L IPID, CBC #### [facility] [address] [place] [address] [place] Sodium [Moles/Vol] 140 mmol/L Normal 136-145 [facility] Comment on above: Order Comment: PT FA STED 12 HOURS Performed By: #### L IPID, CBC #### [facility] [address] [place] [address] [place] Urea nitrogen [Mass/Vol] 34 mg/dL High 7-25 [facility] Comment on above: Order Comment: PT FA STED 12 HOURS Performed By: #### L IPID, CBC #### [facility] [address] Creatinine [Mass/volume] in Serum or PlasmaOrdered By: Shaikh Dotty on 01-09-2023 Creatinine [Mass/Vol] 1.80 mg/dL 0.70-1.30 [facility] Eosinophils Auto (Bld) [#/Vo l]Ordered By: Shaikh Dotty on 01-09-2023 Eosinophils (Bld) [#/Vol] 0.2 10*3/uL 0.0-0.45 [facility] Eosinophils/100 WBC Auto (Bl d)Ordered By: Shaikh Dotty on 01-09-2023 Eosinophils/100 WBC (Bld) 3.9 % . [facility] Erythrocyte distribution wid th Auto (RBC) [Ratio]Ordered By: Shaikh Dotty on 01-09-2023 Erythrocyte distribution width (RBC) [Ratio] 14.6 % 12.0-14.8 [facility] Globulin Calc (S) [Mass/Vol] Ordered By: Shaikh Dotty on 01-09-2023 Globulin (S) [Mass/Vol] 2.7 g/dL [facility] Glucose [Mass/volume] in Ser um or PlasmaOrdered By: Shaikh Dotty on 01-09-2023 Glucose [Mass/Vol] 114 mg/dL 70-100 [facility] Comment on above: ADA recommended refe rence rangeRandom Glucose Reference Range is dependent on time and content of last meal. Glucose of more than 200 mg/dL in a nonstressed, ambulatory subject supports the diagnosis of Diabetes Mellitus. Hematocrit Auto (Bld) [Volum e fraction]Ordered By: Shaikh Dotty on 01-09-2023 Hematocrit (Bld) [Volume fraction] 40.3 % 38.8-50.0 [facility] Hemoglobin [Mass/volume] in BloodOrdered By: Shaikh Dotty on 01-09-2023 Hemoglobin (Bld) [Mass/Vol] 13.3 g/dL 13.0-17.0 [facility] Leukocytes [#/volume] correc diana for nucleated erythrocytes in Blood by Automated counOrdered By: Shaikh Dotty on 01-09-2023 WBC corrected for nucl RBC Auto (Bld) [#/Vol] 5.6 10*3/uL 4.1-10.5 [facility] Lipid Panelon 01-09-2023 Cholesterol [Mass/Vol] 178 mg/dL Normal 140-200 [facility] Comment on above: Order Comment: PT FA STED 12 HOURS Result Comment: Chol less than 200 mg/dl low risk Chol 201-239 mg/dl borderline risk Chol 240 mg/dl and greater high risk Performed By: #### L IPID, CBC #### [facility] [address] [place] [id number] [place] Cholesterol in HDL [Mass/Vol] 31 mg/dL Normal 23-92 [facility] Comment on above: Order Comment: PT FA STED 12 HOURS Result Comment: HDL CHOL ATP-III CLASSIFICATION Cardiovascular Risk HDL > or equal to 60 mg/dL LOW HDL < 40 mg/dL HIGH Performed By: #### L IPID, CBC #### [facility] [address] [place] [address] [place] Cholesterol.total/Chol esterol in HDL [Mass ratio] 5.7 {ratio} Normal <5.0 [facility] Comment on above: Order Comment: PT FA STED 12 HOURS Result Comment: PERF ORMED BY: [place] [address] PATHOLOGIST DIAPER MACHINE TENDER ANA HURT M.D. Performed By: #### L IPID, CBC #### [facility] [address] [place] [id number] [place] LDL Cholesterol,Calculated 115 mg/dL High 0-100 [facility] Comment on above: Order Comment: PT FA STED 12 HOURS Result Comment: LDL ATP III CLASSIFICATION LDL less than 100 mg/dL Optimal LDL 100-129 mg/dL Near or above optimal LDL 130-159 mg/dL Borderline high LDL 160-189 mg/dL High LDL greater than 189 mg/dL Very high Performed By: #### L IPID, CBC #### [facility] [address] [place] [id number] [place] Triglyceride w/Reflex 162 mg/dL High 0-149 [facility] Comment on above: Order Comment: PT FA STED 12 HOURS Result Comment: TRIG ATP III CLASSIFICATION TRIG less than 150 mg/dL Normal TRIG 150-199 mg/dL Borderline high TRIG 200-500 mg/dL High TRIG greater than 500 mg/dL Very high Standard traceable to the Center for Disease Conrtrol and Prevention (CDC) test method. Performed By: #### L IPID, CBC #### [facility] [address] VLDL CHOLESTEROL 32 mg/dL Normal [facility] Comment on above: Order Comment: PT FA STED 12 HOURS Performed By: #### L IPID, CBC #### [facility] [address] Lymphocytes Auto (Bld) [#/Vo l]Ordered By: Shaikh Dotty on 01-09-2023 Lymphocytes (Bld) [#/Vol] 1.1 10*3/uL 1.00-4.8 [facility] Lymphocytes/100 WBC Auto (Bl d)Ordered By: Shaikh Dotty on 01-09-2023 Lymphocytes/100 WBC (Bld) 19.3 % . [facility] MCH Auto (RBC) [Entitic mass ]Ordered By: Shaikh Dotty on 01-09-2023 MCH (RBC) [Entitic mass] 30.0 pg 27.5-35.2 [facility] MCHC Auto (RBC) [Mass/Vol]Or dered By: Shaikh Dotty on 01-09-2023 MCHC (RBC) [Mass/Vol] 32.9 g/dL 32.5-35.6 [facility] MCV Auto (RBC) [Entitic vol] Ordered By: Shaikh Dotty on 01-09-2023 MCV (RBC) [Entitic vol] 91.2 fL 83.5-101 [facility] Monocytes Auto (Bld) [#/Vol] Ordered By: Shaikh Dotty on 01-09-2023 Monocytes (Bld) [#/Vol] 0.5 10*3/uL 0.0-0.8 [facility] Monocytes/100 WBC Auto (Bld) Ordered By: Shaikh Dotty on 01-09-2023 Monocytes/100 WBC (Bld) 8.7 % . [facility] Neutrophils Auto (Bld) [#/Vo l]Ordered By: Shaikh Dotty on 01-09-2023 Neutrophils (Bld) [#/Vol] 3.8 10*3/uL 1.8-7.7 [facility] Neutrophils/100 WBC Auto (Bl d)Ordered By: Shaikh Dotty on 01-09-2023 Neutrophils/100 WBC (Bld) 67.6 % . [facility] No Panel InformationOrdered By: Shaikh Dotty on 01-09-2023 Estimated GFR (CKD-EPI) 38.289 mL/Min [facility] Creatinine Clearance (Chem N/A [facility] Nucleated erythrocytes [Pres ence] in Blood by Automated countOrdered By: Shaikh Dotty on 01-09-2023 Nucleated RBC Auto Ql (Bld) 0.1 /100{WBC} 0-0.5 [facility] Platelet mean volume Auto (B ld) [Entitic vol]Ordered By: Shaikh Dotty on 01-09-2023 Platelet mean volume (Bld) [Entitic vol] 9.7 fL 6.6-10.1 [facility] Platelets Auto (Bld) [#/Vol] Ordered By: Shaikh Dotty on 01-09-2023 Platelets (Bld) [#/Vol] 173 10*3/uL 150-450 [facility] Potassium [Moles/volume] in Serum or PlasmaOrdered By: Shaikh Dotty on 01-09-2023 Potassium [Moles/Vol] 4.9 mmol/L 3.5-5.1 [facility] Protein [Mass/volume] in Ser um or PlasmaOrdered By: Shaikh Dotty on 01-09-2023 Protein [Mass/Vol] 6.9 g/dL 6.4-8.9 [facility] RBC Auto (Bld) [#/Vol]Ordere d By: Shaikh Dotty on 01-09-2023 RBC (Bld) [#/Vol] 4.42 10*6/uL 3.90-5.60 [facility] Serum or plasma albumin/glob ulin mass ratioOrdered By: Shaikh Dotty on 01-09-2023 Albumin/Globulin [Mass ratio] 1.6 {ratio} [facility] Serum or plasma anion gap de terminationOrdered By: Shaikh Dotty on 01-09-2023 Anion gap [Moles/Vol] 9.8 mmol/L 6.0-15.0 [facility] Serum or plasma high density lipoprotein (HDL) cholesterol measurementOrdered By: Shaikh Dotty on 01-09-2023 Cholesterol in HDL [Mass/Vol] 31 mg/dL 23- [facility] Comment on above: HDL CHOL ATP-III CLA SSIFICATION Cardiovascular RiskHDL > or equal to 60 mg/dL LOWHDL < 40 mg/dL HIGH Serum or plasma total choles terol/high density lipoprotein (HDL) cholesterol mass ratOrdered By: Shaikh Dotty on 01-09-2023 Cholesterol.total/Chol esterol in HDL [Mass ratio] 5.7 {ratio} <5.0 [facility] Sodium [Moles/volume] in Ser um or PlasmaOrdered By: Shaikh Dotty on 01-09-2023 Sodium [Moles/Vol] 140 mmol/L 136-145 [facility] Triglyceride [Mass/volume] i n Serum or PlasmaOrdered By: Shaikh Dotty on 01-09-2023 Triglyceride [Mass/Vol] 162 mg/dL 0-149 [facility] Comment on above: TRIG ATP III CLASSIF ICATIONTRIG less than 150 mg/dL NormalTRIG 150-199 mg/dL Borderline highTRIG 200-500 mg/dL High TRIG greater than 500 mg/dL Very highStandard traceable to the Center for Disease Conrtrol and Prevention (CDC) test method. Urea nitrogen [Mass/volume] in Serum or PlasmaOrdered By: Shaikh Dotty on 01-09-2023 Urea nitrogen [Mass/Vol] 34 mg/dL 7- [facility] WBC Auto (Bld) [#/Vol]Ordere d By: Dotty on 01-09-2023 WBC (Bld) [#/Vol] 5.6 10*3/uL 4.1-10.5 [facility] CNPJayne 01-06-2023 CNPN Telephone (RADTSA) -- BOBOYESENIA R ([id number]) 1945 M Date Time Provider Department 01/06/23 [...] Known Allergies) Date Reviewed: 11/19/2022 Reviewed by: Elizabeth Freire APRN.[facility] - Fully Assessed Reason for Visit: Orders [681] Primary Visit Diagnosis:Spinal stenosis of lumbar region, unspecified whether neurogenic claudication present [M48.061] Order(s):MRI LUMBAR SPINE WO/W IVCON [[id number]] Order #: [id number] FUTURE iv contrast (will be provided with [...] Encounter Status:Closed by Genoveva NAZARIO on 01/06/23 [facility] Rena 01-05-2023 STEPH Telephone (IRRFV) -- YESENIA BROUSSARD ([id number]) 1945 M Date Time Provider Department 01/05/23 [...] will need to be scheduled at [facility] [place]. Allergies As of Date: 01/05/2023 (No Known Allergies) Date Reviewed: 11/19/2022 Reviewed by: Elizabeth Freire APRN.[facility] - Fully Assessed Reason for Visit: Patient Question [2847] Appointment [186] Prescriptions as of 01/05/2023 - [...] Encounter Status:Closed by EVELYN CHAMBERLAIN on 01/05/23 [facility] Consultation Noteon 12-11-19 Consultation Note [id number]#[id number]:127 Normal [facility] Lab Reportson 12-10-2022 Lab Reports [id number]#[id number]:127 Normal [facility] Screenson 12-04-2022 Screens [id number]#[id number]:127 [facility] Screens [id number]#[id number]:127 [facility] Ambulatory Visit Summaryon 0 12-03-2022 Ambulatory Visit Summary YESENIA BROUSSARD :1945 Visit Date:12/03/2022 Ambulatory Visit Instructions Your Diagnosis Recurrent UTI Prostate cancer BPH with urinary obstruction Nocturia Your Care Team Attending Physician - CLAIRE JAMES PA-C Primary Care Physician - SHAIKH STORM This Is Your Medications List Contact prescribing physician if questions or concerns acetaminophen-hydrocodone ([place] 5/325 Tab) amlodipine (amLODIPine 5 mg Tab) [...] CLAIRE JAMES PA-C Where: [facility] Patient Educationon 12-04-19 23 Patient Education Urology [...] keep your urine pale yellow. ? Take vifs-uyx-shktity or prescription medicines. ? Eat foods that are high in fiber, such as beans, whole grains, and fresh fruits and vegetables. ? Limit foods that are high in fat and processed sugars, such as fried or sweet foods. General instructions ? Take bcih-bag-zfinums and prescription medicines only as told by [...] muscles that help control urination. ? Take fqor-gut-hwgcieg and prescription medicines only as told by your health care provider. ? Contact a health care provider if your symptoms do not improve or get worse. This information is not intended to replace advice given to you by your health care provider. Make sure you discuss any questions you have with your health care provider. Document Revised: 12/21/2020 Document Reviewed: 12/21/2020 [employer] Patient Education ? 2022 GREE. [facility] Office/Clinic Noteon 12-03-2022 Urology Office/Clinic Note [...] Bedtime, # 30 tab(s), Refills(s) 2, Pharmacy: [facility], 178, cm, 12/03/22 15:00:00 EDT, Height/Length Dosing, 93, kg, 12/03/22 15:00:00 EDT, Weight Dosing Measure Post Void residual urine and/or bladder capacity by US- non-imaging [id number] Follow-up With When Contact Information CLAIRE JAMES PA-C, URL In 5 weeks [address] [place] [address] Additional Instructions: Patient Education Urinary Frequency, Adult Documentation recorded by the scrlea Lincoln accurately reflects the services(s) I performed and decisions made by me. Authenticated by Claire James PA-C on 12/03/2022 16:29:26. Ave Yanez, personally scribed for Claire James PA-C on 12/03/2022 15:37:14. . Problem List/Past Medical History Ongoing Anxiety BPH with urinary obstruction Chronic pain disorder Chronic prostatitis Feel (more content not included)... Normal [facility] Comment on above: Result Comment: Elec tronically Signed By: CLAIRE JAMES PA-C\.br\Date and Time Signed: 12/03/22 16:29 EDT\.br\Electronically Co-Signed By: Ave Lincoln\.br\Date and Time Co-Signed: 12/03/22 15:37 EDT Lab Reportson 10-29-2022 Lab Reports [id number]#[id number]:127 Normal [facility] CULTURE URINEon 10-28-2022 CULTURE URINE Culture Observations : LIGHT GROWTH OF MIXED SKIN DANIELLE. NO POTENTIAL PATHOGENS SEEN. Normal [facility] Comment on above: Performed By: #### U RCX #### [facility] [address] [place] [address] Dr. Leighann Santana No Panel InformationOrdered By: Genoveva Nazario on 05-09-2022 Prostate Specific Antigen Total 2.810 ng/mL 0.000-4.00 0 [facility] Basophils Auto (Bld) [#/Vol] Ordered By: Zeinab Justice on 04-23-2022 Basophils (Bld) [#/Vol] 0.0 10*3/uL 0.0-0.2 [facility] Basophils/100 WBC Auto (Bld) Ordered By: Zeinab Justice on 04-23-2022 Basophils/100 WBC (Bld) 0.5 % . [facility] Body fluid albumin measureme nt (mass/volume)Ordered By: Zeinab Justice on 04-23-2022 Albumin (Body fld) [Mass/Vol] 3.6 g/dL 3.2-5.5 [facility] Creatinine and Glomerular fi ltration rate.predicted panel (S/P/Bld)Ordered By: Zeinab Justice on 04-23-2022 Creatinine [Mass/Vol] 1.65 mg/dL 0.64-1.27 [facility] Eosinophils Auto (Bld) [#/Vo l]Ordered By: Zeinab Justice on 04-23-2022 Eosinophils (Bld) [#/Vol] 0.2 10*3/uL 0.0-0.45 [facility] Eosinophils/100 WBC Auto (Bl d)Ordered By: Zeinab Justice on 04-23-2022 Eosinophils/100 WBC (Bld) 3.4 % . [facility] Erythrocyte distribution wid th Auto (RBC) [Ratio]Ordered By: Zeinab Justice on 04-23-2022 Erythrocyte distribution width (RBC) [Ratio] 15.0 % 12.0-14.8 [facility] Estimated glomerular filtrat ion rate (GFR) non- AmericanOrdered By: Zeinab Justice on 04-23-2022 GFR/1.73 sq M.predicted among non-blacks MDRD (S/P/Bld) [Vol rate/Area] 41 mL/Min [facility] Globulin Calc (S) [Mass/Vol] Ordered By: Zeinab Justice on 04-23-2022 Globulin (S) [Mass/Vol] 2.6 g/dL [facility] Hematocrit Auto (Bld) [Volum e fraction]Ordered By: Zeinab Justice on 04-23-2022 Hematocrit (Bld) [Volume fraction] 38.0 % 38.8-50.0 [facility] Hemoglobin [Mass/volume] in BloodOrdered By: Zeinab Justice on 04-23-2022 Hemoglobin (Bld) [Mass/Vol] 12.3 g/dL 13.0-17.0 [facility] Laboratory - Hematology and Cell countsOrdered By: Zeinab Justice on 04-23-2022 Nucleated RBC/100 WBC (Bld) [Ratio] 0.2 % 0-0.5 [facility] Leukocytes [#/volume] in Blo od by Automated countOrdered By: Zeinab Justice on 04-23-2022 WBC (Bld) [#/Vol] 5.3 10*3/uL 4.5-11.0 [facility] Lymphocytes Auto (Bld) [#/Vo l]Ordered By: Zeinab Justice on 04-23-2022 Lymphocytes (Bld) [#/Vol] 0.9 10*3/uL 1.00-4.8 [facility] Lymphocytes/100 WBC Auto (Bl d)Ordered By: Zeinab Justice on 04-23-2022 Lymphocytes/100 WBC (Bld) 17.1 % . [facility] MCH Auto (RBC) [Entitic mass ]Ordered By: Zeinab Justice on 04-23-2022 MCH (RBC) [Entitic mass] 30.6 pg 27.5-35.2 [facility] MCHC Auto (RBC) [Mass/Vol]Or dered By: Zeinab Justice on 04-23-2022 MCHC (RBC) [Mass/Vol] 32.4 g/dL 32.5-35.6 [facility] MCV Auto (RBC) [Entitic vol] Ordered By: Zeinab Justice on 04-23-2022 MCV (RBC) [Entitic vol] 94.4 fL 83.5-101 [facility] Monocytes Auto (Bld) [#/Vol] Ordered By: Zeinab Justice on 04-23-2022 Monocytes (Bld) [#/Vol] 0.6 10*3/uL 0.0-0.8 [facility] Monocytes/100 WBC Auto (Bld) Ordered By: Zeinab Justice on 04-23-2022 Monocytes/100 WBC (Bld) 10.5 % . [facility] Neutrophils Auto (Bld) [#/Vo l]Ordered By: Zeinab Justice on 04-23-2022 Neutrophils (Bld) [#/Vol] 3.6 10*3/uL 1.8-7.7 [facility] Neutrophils/100 WBC Auto (Bl d)Ordered By: Zeinab Justice on 04-23-2022 Neutrophils/100 WBC (Bld) 68.5 % . [facility] No Panel InformationOrdered By: Zeinab Justice on 04-23-2022 Estimated GFR () 49 mL/Min [facility] Comment on above: GFR estimated refere nce range: According to KDOQI guidelines, <60 ml/min/1.73m2 is sufficient to diagnose a patient with chronic kidney disease. Pharmacy Creatinine Clearance (Chem N/A [facility] Platelet mean volume Auto (B ld) [Entitic vol]Ordered By: Zeinab Justice on 04-23-2022 Platelet mean volume (Bld) [Entitic vol] 9.7 fL 6.6-10.1 [facility] Platelets Auto (Bld) [#/Vol] Ordered By: Zeinab Justice on 04-23-2022 Platelets (Bld) [#/Vol] 170 10*3/uL 150-450 [facility] Protein [Mass/volume] in Ser um or PlasmaOrdered By: Zeinab Justice on 04-23-2022 Protein [Mass/Vol] 6.2 g/dL 6.1-7.9 [facility] RBC Auto (Bld) [#/Vol]Ordere d By: Zeinab Justice on 04-23-2022 RBC (Bld) [#/Vol] 4.02 10*6/uL 3.90-5.60 [facility] Serum or plasma alanine cadet otransferase measurement without P-5'-P (enzymatic activiOrdered By: Zeinab Justice on 04-23-2022 ALT No additional P-5'-P [Catalytic activity/Vol] 19 U/L 10-60 [facility] Serum or plasma albumin/glob ulin mass ratioOrdered By: Zeinab Justice on 04-23-2022 Albumin/Globulin [Mass ratio] 1.4 {ratio} [facility] Serum or plasma alkaline crispin sphatase measurement (enzymatic activity/volume)Ordered By: Zeinab Justice on 04-23-2022 ALP [Catalytic activity/Vol] 51 U/L 32-92 [facility] Serum or plasma anion gap de terminationOrdered By: Zeinab Justice on 04-23-2022 Anion gap [Moles/Vol] 13.2 mmol/L 6.0-15.0 [facility] Serum or plasma aspartate am inotransferase measurement (enzymatic activity/volume)Ordered By: Zeinab Justice on 04-23-2022 AST [Catalytic activity/Vol] 18 U/L 10-42 [facility] Serum or plasma calcium jose antonio urement (mass/volume)Ordered By: Zeinab Justice on 04-23-2022 Calcium [Mass/Vol] 8.8 mg/dL 8.2-10.2 [facility] Serum or plasma chloride doreen surement (moles/volume)Ordered By: Zeinab Justice on 04-23-2022 Chloride [Moles/Vol] 104 mmol/L 95-114 [facility] Serum or plasma glucose jose antonio urement (mass/volume)Ordered By: Zeinab Justice on 04-23-2022 Glucose [Mass/Vol] 98 mg/dL 70-100 [facility] Comment on above: ADA recommended refe rence rangeRandom Glucose Reference Range is dependent on time and content of last meal. Glucose of more than 200 mg/dL in a nonstressed, ambulatory subject supports the diagnosis of Diabetes Mellitus. Serum or plasma potassium me asurement (moles/volume)Ordered By: Zeinab Justice on 04-23-2022 Potassium [Moles/Vol] 4.6 mmol/L 3.5-5.1 [facility] Serum or plasma sodium measu rement (moles/volume)Ordered By: Zeinab Justice on 04-23-2022 Sodium [Moles/Vol] 136 mmol/L 136-146 [facility] Serum or plasma total biliru bin measurement (mass/volume)Ordered By: Zeinab Justice on 04-23-2022 Bilirubin [Mass/Vol] 0.5 mg/dL 0.3-1.2 [facility] Serum or plasma total carbon dioxide measurement (moles/volume)Ordered By: Zeinab Justice on 04-23-2022 CO2 [Moles/Vol] 23.4 mmol/L 22.0-30.0 [facility] Serum or plasma urea nitroge n measurement (mass/volume)Ordered By: Zeinab Justice on 04-23-2022 Urea nitrogen [Mass/Vol] 22 mg/dL 02-21 [facility] CBC W Auto Differential pane l (Bld)on 03-27-2022 Basophils (Bld) [#/Vol] <0.11 k/uL [facility] Basophils/100 WBC (Bld) 0.3 % [facility] Differential cell count method Nom (Bld) Auto [facility] Eosinophils (Bld) [#/Vol] 0.25 10*3/uL <0.46 k/uL [facility] Eosinophils/100 WBC (Bld) 3.2 % [facility] Erythrocyte distribution width (RBC) [Ratio] 14.3 % 11.5 - 15.0 % [facility] Hematocrit (Bld) [Volume fraction] 39.3 % 39.0 - 51.0 % [facility] Hemoglobin (Bld) [Mass/Vol] 12.8 g/dL Low 13.0 - 17.0 g/dL [facility] Immature granulocytes (Bld) [#/Vol] 0.03 10*3/uL <0.10 k/uL [facility] Immature granulocytes/100 WBC (Bld) 0.4 % [facility] Lymphocytes (Bld) [#/Vol] 1.53 10*3/uL 1.00 - 4.00 k/uL [facility] Lymphocytes/100 WBC (Bld) 19.8 % [facility] MCH (RBC) [Entitic mass] 31.4 pg 26.0 - 34.0 pg [facility] MCHC (RBC) [Mass/Vol] 32.6 g/dL 30.5 - 36.0 g/dL [facility] MCV (RBC) [Entitic vol] 96.6 fL 80.0 - 100.0 fL [facility] Monocytes (Bld) [#/Vol] 0.67 10*3/uL <0.87 k/uL [facility] Monocytes/100 WBC (Bld) 8.7 % [facility] Neutrophils (Bld) [#/Vol] 5.21 10*3/uL 1.45 - 7.50 k/uL [facility] Neutrophils/100 WBC (Bld) 67.6 % [facility] Nucleated RBC (Bld) [#/Vol] <0.01 k/uL [facility] Nucleated RBC/100 WBC (Bld) [Ratio] 0.0 /100 WBC [facility] Platelet mean volume (Bld) [Entitic vol] 11.2 fL 9.0 - 12.7 fL [facility] Platelets (Bld) [#/Vol] 183 10*3/uL 150 - 400 k/uL [facility] RBC (Bld) [#/Vol] 4.07 10*6/uL Low 4.20 - 6.00 m/uL [facility] WBC (Bld) [#/Vol] 7.71 10*3/uL 3.70 - 11.00 k/uL [facility] CHEMISTRYOrdered By: SYSTEM SYSTEM on 02-13-2022 [...] - 11.0 E9/L [facility] HemeAutoSS [facility]on SARS-CoV-2 (COVID-19) RNA WENCESLAO+probe Ql (Unsp spec) Not detected Normal NOT DETECTED [facility] Comment on above: Result Comment: This test is not yet approved or cleared by the [place] FDA. When there are no FDA-approved or cleared tests available, and other criteria are met, FDA can make tests available under an emergency access mechanism called an Emergency Use Authorization (EUA). The EUA for this test is supported by the [employer] Professional of Health and Human Service's (HHS's) declaration [...] SARS-CoV-2. Performed By: #### C VDTBH #### [facility] [address] [address] [address] Leighann Santana PTH INTACTon 01-31-2022 PTH, Intact 35 pg/mL Normal 15-65 [facility] Comment on above: Performed By: #### P THINT #### [facility] [address] [address] [address] Leighann Santana VIT D 25-OH LABCORPon 2021 Vitamin D, 25-Hydroxy 26.2 ng/mL Critically low 30.0-100.0 [facility] Comment on above: Result Comment: [place] min D deficiency has been defined by the [place] of [employer] and an Endocrine Society practice guideline as a level of serum 25-OH vitamin D less than 20 ng/mL (1,2). The Endocrine Society went on to further define vitamin D insufficiency as a level between 21 and 29 ng/mL (2). 1. IOM ([place] of [employer]). 2010. Dietary reference intakes for calcium and D. [place]: The National Academies Press. 2. Grecia MF, [place], John RIVERS, et al. Evaluation, treatment, and prevention of vitamin D deficiency: an Endocrine Society clinical practice guideline. JCEM. 2010; 96(7):1911-30. Performed By: #### V ITADLC #### [facility] [address] [address] [address] Leighann Santana HEMOGRAM AND PLATELon 2021 Hematocrit (Bld) [Volume fraction] 39.3 % Critically low 42.0-54.0 [facility] Comment on above: Performed By: #### H H ####[facility] [address] [address]Dr. Leighann Santana Hemoglobin (Bld) [Mass/Vol] 12.5 g/dL Critically low 14.0-18.0 [facility] Comment on above: Performed By: #### H H ####[facility] [address] [address]Dr. Leighann Santana MCH (RBC) [Entitic mass] 30.2 pg Normal 25.9-34.0 [facility] Comment on above: Performed By: #### H H ####[facility] [address] [address]Dr. Leighann Santana MCHC (RBC) [Mass/Vol] 31.8 g/dL Normal 29.9-35.2 [facility] Comment on above: Performed By: #### H H ####[facility] [address] [address]Dr. Leighann Santana MCV (RBC) [Entitic vol] 94.9 fL Critically high 80.0-94.0 [facility] Comment on above: Performed By: #### H H ####[facility] [address] [address]Dr. Leighann Santana PLT 191 103/ul Normal 150-450 [facility] Comment on above: Performed By: #### H H ####[facility] [address] [address]Dr. Leighann Santana RBC 4.14 106/ul Critically low 4.70-6.10 [facility] Comment on above: Performed By: #### H H ####[facility] [address] [address]Dr. Leighann Santana WBC 7.3 103/ul Normal 4.0-11.0 [facility] Comment on above: Performed By: #### H H ####[facility] [address] [address]Dr. Leighann Santana MAGNESIUMon 01-30-2022 Magnesium [Mass/Vol] 1.9 mg/dL Normal 1.8-2.4 [facility] Comment on above: Performed By: #### R ENAL, MG, URIC ####[facility] [address] [address]Dr. Leighann Santana RENAL FUNCTION PANELon 01-30 Albumin [Mass/Vol] 3.4 g/dL Normal 3.4-5.0 [facility] Comment on above: Performed By: #### R ENAL, MG, URIC ####[facility] [address] [address]Dr. Leighann Santana Calcium [Mass/Vol] 8.7 mg/dL Normal 8.5-10.1 [facility] Comment on above: Performed By: #### R ENAL, MG, URIC ####[facility] [address] [address]Dr. Leighann Santana Chloride [Moles/Vol] 105 mmol/L Normal 98-107 [facility] Comment on above: Performed By: #### R ENAL, MG, URIC ####[facility] [address] [place], [place] [address]Dr. Leighann Santana CO2 [Moles/Vol] 26.5 mmol/L Normal 21.0-32.0 [facility] Comment on above: Performed By: #### R ENAL, MG, URIC ####[facility] [address] [place], [place] [address]Dr. Leighann Santana Creatinine [Mass/Vol] 1.77 mg/dL Critically high 0.70-1.30 [facility] Comment on above: Performed By: #### R ENAL, MG, URIC ####[facility] [address] [place], [place] [address]Dr. Leighann Santana EGFR-AF NEW ZEALANDER 46 mL/min/1.73m2 Critically low >=60 [facility] Comment on above: Performed By: #### R ENAL, MG, URIC ####[facility] [address] [place], [place] [address]Dr. Leighann Santana EGFR-NON AF [place]ANDER 38 mL/min/1.73m2 Critically low >=60 [facility] Comment on above: Performed By: #### R ENAL, MG, URIC ####[facility] [address] [place], [place] [address]Dr. Leighann Santana Glucose [Mass/Vol] 136 mg/dL Critically high 74-106 [facility] Comment on above: Performed By: #### R ENAL, MG, URIC ####[facility] [address] [place], [place] [id number]. Leighann Santana Phosphate [Mass/Vol] 3.6 mg/dL Normal 2.6-4.7 [facility] Comment on above: Performed By: #### R ENAL, MG, URIC ####[facility] [address] [address]Dr. Leighann Santana Potassium [Moles/Vol] 4.5 mmol/L Normal 3.5-5.1 [facility] Comment on above: Performed By: #### R ENAL, MG, URIC ####[facility] [address] [address]Dr. Leighann Santana Sodium [Moles/Vol] 140 mmol/L Normal 136-145 [facility] Comment on above: Performed By: #### R ENAL, MG, URIC ####[facility] [address] [address]Dr. Leighann Santana Urea nitrogen [Mass/Vol] 25.0 mg/dL Critically high 7.0-18.0 [facility] Comment on above: Performed By: #### R ENAL, MG, URIC ####[facility] [address] [address]Dr. Leighann Santana UA RANDOM W/MICROSCOPICon BACTERIA SMALL Abnormal NONE SEEN [facility] Comment on above: Performed By: #### U AMIC #### [facility] [address] [place] [address] Dr. Leighann Santana Bilirubin Ql (U) Negative Normal NEGATIVE [facility] Comment on above: Performed By: #### U AMIC #### [facility] [address] [address] [address] Leighann Santana CAST NONE SEEN Normal NONE SEEN [facility] Comment on above: Performed By: #### U AMIC #### [facility] [address] [place] [address] Dr. Leighann Santana Clarity (U) CLEAR Normal CLEAR [facility] Comment on above: Performed By: #### U AMIC #### [facility] [address] [place] [address] Dr. Leighann Santana Color (U) LT. YELLOW Normal YELLOW [facility] Comment on above: Performed By: #### U AMIC #### [facility] [address] [address] [address] Leighann Santana Crystals LM Nom (Urine sed) NONE SEEN Normal NONE SEEN [facility] Comment on above: Performed By: #### U AMIC #### [facility] [address] [address] [address] Leighann Santana Epithelial cells LM Ql (Urine sed) FEW Abnormal NONE SEEN /RARE [facility] Comment on above: Performed By: #### U AMIC #### [facility] [address] [address] [address] Leighann Santana Glucose Ql (U) Negative Normal NEGATIVE [facility] Comment on above: Performed By: #### U AMIC #### [facility] [address] [place] [address] Dr. Leighann Santana Hemoglobin Ql (U) TRACE-INTACT Abnormal NEGATIVE [facility] Comment on above: Performed By: #### U AMIC #### [facility] [address] [address] [address] Leighann Santana Ketones Ql (U) Negative Normal NEGATIVE [facility] Comment on above: Performed By: #### U AMIC #### [facility] [address] [address] [address] Leighann Santana LEUKOCYTES MODERATE Abnormal NEGATIVE [facility] Comment on above: Performed By: #### U AMIC #### [facility] [address] [address] [address] Leighann Santana MUCOUS NONE SEEN Normal NONE SEEN [facility] Comment on above: Performed By: #### U AMIC #### [facility] [address] [address] [address] Leighann Santana Nitrite Ql (U) Positive Abnormal NEGATIVE [facility] Comment on above: Performed By: #### U AMIC #### [facility] [address] [address] [address] Leighann Santana pH (U) 5.5 [pH] Normal 5-9 [facility] Comment on above: Performed By: #### U AMIC #### [facility] [address] [address] [address] Leighann Santana RBC 2-5 Abnormal 0-2 [facility] Comment on above: Performed By: #### U AMIC #### [facility] [address] [address] [address] Leighann Santana SPEC GRAVITY >=1.030 Abnormal 1.005-<=1. 025 [facility] Comment on above: Performed By: #### U AMIC #### [facility] [address] [address] [address] Leighann Santana UA PROTEIN 30 mg/dl Abnormal NEGATIVE/ TRACE [facility] Comment on above: Performed By: #### U AMIC #### [facility] [address] [place] [address] Dr. Leighann Santana Urobilinogen Qn (U) 0.2 {Jing'U}/dL Normal 0.2 - 1. 0 [facility] Comment on above: Performed By: #### U AMIC #### [facility] [address] [place] [address] Dr. Leighann Santana WBC 10-20 Abnormal NONE SEEN [facility] Comment on above: Performed By: #### U AMIC #### [facility] [address] [place] [address] Dr. Leighann Santana URIC ACID SERUMon 01-30-2022 Urate [Mass/Vol] 6.5 mg/dL Normal 3.5-7.2 [facility] Comment on above: Performed By: #### R ENAL, MG, URIC ####[facility] [address] [address]. Leighann Santana URINE T PROTEIN CREAT RATIOo n 01-30-2022 Protein (U) [Mass/Vol] 73.2 mg/dL Critically high <=12.0 [facility] Comment on above: Performed By: #### U RTPCR #### [facility] [address] [place] [address] Dr. Leighann Santana UR PROT CREAT RAT 0.42 Normal [facility] Comment on above: Performed By: #### U RTPCR #### [facility] [address] [address] [address] Leighann Santana URINE CREAT 175.21 mg/dL Normal 20.00-300. 00 [facility] Comment on above: Performed By: #### U RTPCR #### [facility] [address] [address] [address] Leighann Santana SURGICAL PATH REPORTon 06-11 SURGICAL PATH REPORT [facility] Department of Pathology [address] [place] [id number] Name: YESENIA BROUSSARD : 1945 Merged With [facility] [id number] Number: Gender: Male Location: [facility] Admit 75 years Attending BARBARA JOHNSTON Age: Provider: Ordering BARBARA JOHNSTON Provider: Consulting: Surgical Pathology Report ACCESSION: COLLECTED DATE/TIME: RECEIVED DATE/TIME: PATHOLOGIST: [id number] 06/06/2021 16:30 EST 06/07/2021 11:15 EST QUINN MAK, [facility] Final Diagnosis Report for THE [place], [place] PROSTATE TISSUE; TURP: - PROSTATIC ACINAR [...] identified Print Date06/11/2021 16:16 EST Number: Time: [facility] Department of Pathology [address] [place] [id number] Name: YESENIA BROUSSARD : 1945 Merged With [facility] [id number] Number: Gender: Male Location: [facility] Admit 75 years Attending BARBARA JOHNSTON Age: Provider: Ordering BARBARA JOHNSTON Provider: Consulting: Surgical Pathology Report ACCESSION: COLLECTED DATE/TIME: RECEIVED DATE/TIME: PATHOLOGIST: [id number] 06/06/2021 16:30 EST 06/07/2021 11:15 EST KATYA [...] Print Date/ 06/11/2021 16:16 EST Number: Time: [facility] Department of Pathology [address] [place] [address] Name: YESENIA BROUSSARD : 1945 Merged With [facility] [id number] Number: Gender: Male Location: [facility] Admit 75 years Attending BARBARA JOHNSTON Age: Provider: Ordering BARBARA JOHNSTON Provider: Consulting: Surgical Pathology Report ACCESSION: COLLECTED DATE/TIME: RECEIVED DATE/TIME: PATHOLOGIST: [id number] 06/06/2021 16:30 EST 06/07/2021 11:15 EST QUINN MAK, [facility] Gross Description Labeled prostate tissue. Received in formalin are multiple hemicylindrical segments of khan- pink firm, but pliable tissue. The segments have an aggregate weight of 12 grams and measure in aggregate 7.8 x 6.4 x 2.0 cm. There are calculi present amongst the tissue segment. The specimen is entirely submitted in twelve cassettes. MP/ww 06/07/2021 Tissue pathology report for: [facility], [address] [place] [address]; PATHOLOGY SERVICES PROVIDED BY [employer] (CLIA #[id number]) in cooperation with [facility] at [address] [place] [address] (CLIA #[id number]) Codes CPT CODE: 01943 Print Date06/11/2021 16:16 EST Number: Time: Normal [facility] Comment on above: Performed By: #### [id number] #### [facility] [address] [place], [place] [id number] Veneer Gluer: Gigi Peters MD Vital Signs Date Time Vital Sign Value Performing Clinician Facility 12-15-2023 14:33-0400 Body mass index (BMI) [Ratio] 27.49 kg/m2 SRAVANTHI Nazario MD Work Phone: [facility] 12-15-2023 14:33-0400 Body temperature 97.81 [degF] SRAVANTHI Nazario MD Work Phone: [facility] 12-15-2023 14:33-0400 Body weight 86.9 kg SRAVANTHI Nazario MD Work Phone: [facility] 12-15-2023 14:33-0400 Diastolic blood pressure 76 mm[Hg] SRAVANTHI Nazario MD Work Phone: [facility] 12-15-2023 14:33-0400 Heart rate 86 /min SRAVANTHI Nazario MD Work Phone: [facility] 12-15-2023 14:33-0400 Respiratory rate 16 /min SRAVANTHI Nazario MD Work Phone: [facility] 12-15-2023 14:33-0400 SaO2% (BldA) [Mass fraction] 98 % SRAVANTHI Nazario MD Work Phone: [facility] 12-15-2023 14:33-0400 Systolic blood pressure 137 mm[Hg] SRAVANTHI Nazario MD Work Phone: [facility] 10-15-2023 09:17-0400 Body height 177.8 cm MD Shaikh Storm Work Phone: [facility] 10-15-2023 09:17-0400 Body mass index (BMI) [Ratio] 28.1 kg/m2 MD Shaikh Storm Work Phone: [facility] 10-15-2023 09:17-0400 Body temperature 97.8 [degF] MD Shaikh Storm Work Phone: [facility] 10-15-2023 09:17-0400 Body weight 89 kg MD Shaikh Storm Work Phone: [facility] 10-15-2023 09:17-0400 Diastolic blood pressure 86 mm[Hg] MD Shaikh Storm Work Phone: [facility] 10-15-2023 09:17-0400 Heart rate 67 /min MD Shaikh Storm Work Phone: [facility] 10-15-2023 09:17-0400 Respiratory rate 16 /min MD Shaikh Storm Work Phone: [facility] 10-15-2023 09:17-0400 SaO2% (BldA) [Mass fraction] 94 % MD Shaikh Storm Work Phone: [facility] 10-15-2023 09:17-0400 Systolic blood pressure 128 mm[Hg] MD Shaikh Storm Work Phone: [facility] 09-18-2023 10:50-0400 Blood Pressure Location Barbara JOHNSTON [facility] 09-18-2023 10:50-0400 Diastolic blood pressure 81 mm[Hg] Barbaraterry JOHNSTON [facility] 09-18-2023 10:50-0400 Heart rate 76 /min Barbaraterry JOHNSTON [facility] 09-18-2023 10:50-0400 Respiratory rate 16 /min Barbaraterry JOHNSTON [facility] 09-18-2023 10:50-0400 Systolic blood pressure 128 mm[Hg] Barbara JOHNSTON [facility] 08-18-2023 12:12-0400 Diastolic blood pressure 60 mm[Hg] Chaim Grayson DO Work Phone: [facility] 08-18-2023 12:12-0400 Systolic blood pressure 138 mm[Hg] Chaim Grayson DO Work Phone: [facility] 08-18-2023 11:52-0400 Body height 177.8 cm Chaim Grayson DO Work Phone: [facility] 08-18-2023 11:52-0400 Body mass index (BMI) [Ratio] 28.12 kg/m2 Chaim Grayson DO Work Phone: [facility] 08-18-2023 11:52-0400 Body weight 88.91 kg Chaim Grayson DO Work Phone: [facility] 08-18-2023 11:52-0400 Heart rate 80 /min Chaim Grayson DO Work Phone: [facility] 06-18-2023 13:11-0500 Diastolic blood pressure 94 mm[Hg] Tram 1 [facility] 06-18-2023 13:11-0500 Heart rate 86 /min [address] 06-18-2023 13:11-0500 Systolic blood pressure 154 mm[Hg] [address] 06-12-2023 11:11-0500 Body height 177.8 cm Kodi Reynolds MD Work Phone: [facility] 06-12-2023 11:11-0500 Body weight 88.91 kg Kodi Reynolds MD Work Phone: [facility] 06-04-2023 10:19-0500 Diastolic blood pressure 84 mm[Hg] Chaim Grayson DO Work Phone: [facility] 06-04-2023 10:19-0500 Systolic blood pressure 154 mm[Hg] Chaim Grayson DO Work Phone: [facility] 06-04-2023 10:18-0500 Body height 177.8 cm Chaim Grayson DO Work Phone: [facility] 06-04-2023 10:18-0500 Body mass index (BMI) [Ratio] 28.41 kg/m2 Chaim Grayson DO Work Phone: [facility] 06-04-2023 10:18-0500 Body weight 89.81 kg Chaim Grayson DO Work Phone: [facility] 06-04-2023 10:18-0500 Heart rate 83 /min Chaim Grayson DO Work Phone: [facility] 04-21-2023 09:05-0500 Diastolic blood pressure 86 mm[Hg] CLAIRE JAMES [facility] 04-21-2023 09:05-0500 Heart rate 76 /min CLAIRE BRITNI [facility] 04-21-2023 09:05-0500 Mean blood pressure 108 mm[Hg] CLAIRE BRITNI [facility] 04-21-2023 09:05-0500 Systolic blood pressure 151 mm[Hg] CLAIRE BRITNI [facility] 04-21-2023 08:20-0500 Blood Pressure Location CLAIRE BRITNI [facility] 04-21-2023 08:20-0500 Diastolic blood pressure 84 mm[Hg] CLAIRE BRITNI [facility] 04-21-2023 08:20-0500 Heart rate 79 /min CLAIRE BRITNI [facility] 04-21-2023 08:20-0500 Respiratory rate 16 /min CLAIRE BRITNI [facility] 04-21-2023 08:20-0500 Systolic blood pressure 153 mm[Hg] CLAIRE BRITNI [facility] 04-16-2023 11:30-0500 Body height 177.8 cm Jose Martin Mchugh Other [employer] Other 04-16-2023 11:30-0500 Body mass index (BMI) [Ratio] 28.26 kg/m2 Jose Martin Mchugh Other [employer] Other 04-16-2023 11:30-0500 Body temperature 97.8 [degF] Jose Martin Rosariozaira Other [employer] Other 04-16-2023 11:30-0500 Body weight 89.36 kg Jose Martin Rosariozaira Other [employer] Other 04-16-2023 11:30-0500 Diastolic blood pressure 62 mm[Hg] Jose Martin Jeison Other [employer] Other 04-16-2023 11:30-0500 SaO2% (BldA) [Mass fraction] 97 % Jose Martin Rosariozaira Other [employer] Other 04-16-2023 11:30-0500 Systolic blood pressure 120 mm[Hg] Jose Martin Jeison Other [employer] Other 03-23-2023 12:55-0400 Diastolic blood pressure 78 mm[Hg] MD Shaikh Storm Work Phone: [facility] 03-23-2023 12:55-0400 Heart rate 54 /min MD Shaikh Storm Work Phone: [facility] 03-23-2023 12:55-0400 Respiratory rate 16 /min MD Shaikh Storm Work Phone: [facility] 03-23-2023 12:55-0400 SaO2% (BldA) [Mass fraction] 95 % MD Shaikh Storm Work Phone: [facility] 03-23-2023 12:55-0400 Systolic blood pressure 145 mm[Hg] MD Shaikh Storm Work Phone: [facility] 03-23-2023 09:48-0400 Inhaled oxygen flow rate 4 L/min MD Shaikh Storm Work Phone: [facility] 03-23-2023 07:22-0400 Body height 177.8 cm MD Shaikh Storm Work Phone: [facility] 03-23-2023 07:22-0400 Body weight 89.35 kg MD Shaikh Storm Work Phone: [facility] 03-12-2023 08:30-0400 Body height 177.8 cm Jose Martin Mchugh Other [employer] [facility] [employer] Other 03-12-2023 08:30-0400 Body mass index (BMI) [Ratio] 28.26 kg/m2 Jose Martin Mchugh Other [employer] Other 03-12-2023 08:30-0400 Body temperature 97.5 [degF] Jose Martin Mchugh Other [employer] Other 03-12-2023 08:30-0400 Body weight 89.36 kg Jose Martin Mchugh Other [employer] Other 03-12-2023 08:30-0400 Diastolic blood pressure 68 mm[Hg] Jose Martin Mchugh Other [employer] Other 03-12-2023 08:30-0400 SaO2% (BldA) [Mass fraction] 97 % Jose Martin Mchugh Other [employer] Other 03-12-2023 08:30-0400 Systolic blood pressure 128 mm[Hg] Jose Martin Mchugh Other [employer] Other 02-20-2023 11:15-0400 Diastolic blood pressure 63 mm[Hg] MD Shaikh Storm Work Phone: [facility] 02-20-2023 11:15-0400 Heart rate 45 /min MD Shaikh Storm Work Phone: [facility] 02-20-2023 11:15-0400 Respiratory rate 18 /min MD Shaikh Storm Work Phone: [facility] 02-20-2023 11:15-0400 SaO2% (BldA) [Mass fraction] 95 % MD Shaikh Storm Work Phone: [facility] 02-20-2023 11:15-0400 Systolic blood pressure 123 mm[Hg] MD Shaikh Storm Work Phone: [facility] 02-20-2023 11:07-0400 Body height 177.8 cm MD Shaikh Storm Work Phone: [facility] 02-20-2023 11:07-0400 Body mass index (BMI) [Ratio] 29 kg/m2 MD Shaikh Storm Work Phone: [facility] 02-20-2023 11:07-0400 Body weight 92 kg MD Shaikh Storm Work Phone: [facility] 02-20-2023 07:53-0400 Body temperature 98 [degF] MD Shaikh Storm Work Phone: [facility] 02-18-2023 11:30-0400 Body height 177.8 cm Bonnie Tan Other [employer] Other 02-18-2023 11:30-0400 Body mass index (BMI) [Ratio] 29.12 kg/m2 Bonnie Tan Other [employer] Other 02-18-2023 11:30-0400 Body temperature 97.8 [degF] Bonnie Tan Other [employer] Other 02-18-2023 11:30-0400 Body weight 92.08 kg Bonnie Tan Other [employer] Other 02-18-2023 11:30-0400 Diastolic blood pressure 76 mm[Hg] Bonnie Tan Other [employer] Other 02-18-2023 11:30-0400 SaO2% (BldA) [Mass fraction] 97 % Bonnie Tan Other [employer] Other 02-18-2023 11:30-0400 Systolic blood pressure 126 mm[Hg] Bonnie Tan Other [employer] Other 02-11-2023 14:48-0400 Blood Pressure Location CLAIRE BRITNI [facility] 02-11-2023 14:48-0400 Diastolic blood pressure 74 mm[Hg] CLAIRE BRITNI [facility] 02-11-2023 14:48-0400 Heart rate 80 /min CLAIRE BRITNI [facility] 02-11-2023 14:48-0400 Respiratory rate 16 /min CLAIRE BRITNI [facility] 02-11-2023 14:48-0400 Systolic blood pressure 130 mm[Hg] CLAIRE BRITNI [facility] 01-19-2023 13:04-0400 Body weight 92.63 kg Jose Nichols DO Work Phone: [facility] 01-19-2023 13:04-0400 Diastolic blood pressure 58 mm[Hg] Jose Nichols DO Work Phone: [facility] 01-19-2023 13:04-0400 Heart rate 48 /min Jose Nichols DO Work Phone: [facility] 01-19-2023 13:04-0400 Systolic blood pressure 122 mm[Hg] Jose Nichols DO Work Phone: [facility] 12-03-2022 14:57-0400 Blood Pressure Location CLAIRE STEPHENSRY [facility] 12-03-2022 14:57-0400 Diastolic blood pressure 76 mm[Hg] CLAIRE BRITNI [facility] 12-03-2022 14:57-0400 Heart rate 69 /min CLAIRE BRITNI [facility] 12-03-2022 14:57-0400 Respiratory rate 16 /min CLAIRE BRITNI [facility] 12-03-2022 14:57-0400 Systolic blood pressure 138 mm[Hg] CLAIRE BRITNI [facility] 11-18-2022 13:29-0400 Body temperature 98.71 [degF] SRAVANTHI Nazario MD Work Phone: [facility] 11-18-2022 13:29-0400 Body weight 92.53 kg SRAVANTHI Nazario MD Work Phone: [facility] 11-18-2022 13:29-0400 Diastolic blood pressure 54 mm[Hg] SRAVANTHI Nazario MD Work Phone: [facility] 11-18-2022 13:29-0400 Heart rate 56 /min SRAVANTHI Nazario MD Work Phone: [facility] 11-18-2022 13:29-0400 Respiratory rate 18 /min SRAVANTHI Nazario MD Work Phone: [facility] 11-18-2022 13:29-0400 SaO2% (BldA) [Mass fraction] 96 % SRAVANTHI Nazario MD Work Phone: [facility] 11-18-2022 13:29-0400 Systolic blood pressure 112 mm[Hg] SRAVANTHI Nazario MD Work Phone: [facility] 04-21-2022 15:30-0500 Body temperature 96.69 [degF] SRAVANTHI Nazario MD Work Phone: [facility] 04-21-2022 15:30-0500 Body weight 95.71 kg SRAVANTHI Nazario MD Work Phone: [facility] 04-21-2022 15:30-0500 Diastolic blood pressure 70 mm[Hg] SRAVANTHI Nazario MD Work Phone: [facility] 04-21-2022 15:30-0500 Heart rate 58 /min SRAVANTHI Nazario MD Work Phone: [facility] 04-21-2022 15:30-0500 Respiratory rate 18 /min SRAVANTHI Nazario MD Work Phone: [facility] 04-21-2022 15:30-0500 SaO2% (BldA) [Mass fraction] 98 % SRAVANTHI Nazario MD Work Phone: [facility] 04-21-2022 15:30-0500 Systolic blood pressure 154 mm[Hg] SRAVANTHI Nazario MD Work Phone: [facility] 04-14-2022 15:04-0500 Body temperature 97.59 [degF] SRAVANTHI Nazario MD Work Phone: [facility] 04-14-2022 15:04-0500 Body weight 93.44 kg SRAVANTHI Nazario MD Work Phone: [facility] 04-14-2022 15:04-0500 Diastolic blood pressure 68 mm[Hg] SRAVANTHI Nazario MD Work Phone: [facility] 04-14-2022 15:04-0500 Heart rate 64 /min SRAVANTHI Nazario MD Work Phone: [facility] 04-14-2022 15:04-0500 Respiratory rate 16 /min SRAVANTHI Nazario MD Work Phone: [facility] 04-14-2022 15:04-0500 SaO2% (BldA) [Mass fraction] 97 % SRAVANTHI Nazario MD Work Phone: [facility] 04-14-2022 15:04-0500 Systolic blood pressure 128 mm[Hg] SRAVANTHI Nazario MD Work Phone: [facility] 04-07-2022 11:01-0500 Body temperature 97.39 [degF] SRAVANTHI Nazario MD Work Phone: [facility] 04-07-2022 11:01-0500 Body weight 94.35 kg SRAVANTHI Nazario MD Work Phone: [facility] 04-07-2022 11:01-0500 Diastolic blood pressure 63 mm[Hg] SRAVANTHI Nazario MD Work Phone: [facility] 04-07-2022 11:01-0500 Heart rate 55 /min SRAVANTHI Nazario MD Work Phone: [facility] 04-07-2022 11:01-0500 Respiratory rate 18 /min SRAVANTHI Nazario MD Work Phone: [facility] 04-07-2022 11:01-0500 SaO2% (BldA) [Mass fraction] 98 % SRAVANTHI Nazario MD Work Phone: [facility] 04-07-2022 11:01-0500 Systolic blood pressure 138 mm[Hg] SRAVANTHI Nazario MD Work Phone: [facility] 03-31-2022 15:33-0400 Body temperature 96.69 [degF] SRAVANTHI Nazario MD Work Phone: [facility] 03-31-2022 15:33-0400 Body weight 94.8 kg SRAVANTHI Nazario MD Work Phone: [facility] 03-31-2022 15:33-0400 Diastolic blood pressure 72 mm[Hg] SRAVANTHI Nazario MD Work Phone: [facility] 03-31-2022 15:33-0400 Heart rate 54 /min SRAVANTHI Nazario MD Work Phone: [facility] 03-31-2022 15:33-0400 Respiratory rate 18 /min SRAVANTHI Nazario MD Work Phone: [facility] 03-31-2022 15:33-0400 SaO2% (BldA) [Mass fraction] 97 % SRAVANTHI Nazario MD Work Phone: [facility] 03-31-2022 15:33-0400 Systolic blood pressure 145 mm[Hg] SRAVANTHI Nazario MD Work Phone: [facility] 03-24-2022 16:03-0400 Body temperature 98.01 [degF] SRAVANTHI Nazario MD Work Phone: [facility] 03-24-2022 16:03-0400 Body weight 93.44 kg SRAVANTHI Nazario MD Work Phone: [facility] 03-24-2022 16:03-0400 Diastolic blood pressure 65 mm[Hg] SRAVANTHI Nazario MD Work Phone: [facility] 03-24-2022 16:03-0400 Heart rate 50 /min SRAVANTHI Nazario MD Work Phone: [facility] 03-24-2022 16:03-0400 Respiratory rate 16 /min SRAVANTHI Nazario MD Work Phone: [facility] 03-24-2022 16:03-0400 SaO2% (BldA) [Mass fraction] 100 % SRAVANTHI Nazario MD Work Phone: [facility] 03-24-2022 16:03-0400 Systolic blood pressure 141 mm[Hg] SRAVANTHI Nazario MD Work Phone: [facility] 03-18-2022 11:52-0400 Body temperature 97.9 [degF] SRAVANTHI Nazario MD Work Phone: [facility] 03-18-2022 11:52-0400 Body weight 93.44 kg SRAVANTHI Nazario MD Work Phone: [facility] 03-18-2022 11:52-0400 Diastolic blood pressure 71 mm[Hg] SRAVANTHI Nazario MD Work Phone: [facility] 03-18-2022 11:52-0400 Heart rate 56 /min SRAVANTHI Nazario MD Work Phone: [facility] 03-18-2022 11:52-0400 Respiratory rate 16 /min SRAVANTHI Nazario MD Work Phone: [facility] 03-18-2022 11:52-0400 SaO2% (BldA) [Mass fraction] 96 % SRAVANTHI Nazario MD Work Phone: [facility] 03-18-2022 11:52-0400 Systolic blood pressure 115 mm[Hg] SRAVANTHI Nazario MD Work Phone: [facility] 12-10-2021 09:19-0400 Body height 175.9 cm SRAVANTHI Nazario MD Work Phone: [facility] 12-10-2021 09:19-0400 Body temperature 98.71 [degF] SRAVANTHI Nazario MD Work Phone: [facility] 12-10-2021 09:19-0400 Body weight 94.35 kg SRAVANTHI Nazario MD Work Phone: [facility] 12-10-2021 09:19-0400 Diastolic blood pressure 68 mm[Hg] SRAVANTHI Nazario MD Work Phone: [facility] 12-10-2021 09:19-0400 Heart rate 51 /min SRAVANTHI Nazario MD Work Phone: [facility] 12-10-2021 09:19-0400 Respiratory rate 16 /min SRAVANTHI Nazario MD Work Phone: [facility] 12-10-2021 09:19-0400 SaO2% (BldA) [Mass fraction] 97 % SRAVANTHI Nazario MD Work Phone: [facility] 12-10-2021 09:19-0400 Systolic blood pressure 116 mm[Hg] SRAVANTHI Nazario MD Work Phone: [facility] 11-04-2021 09:48-0400 Blood Pressure Location Barbara JOHNSTON [facility] 11-04-2021 09:48-0400 Diastolic blood pressure 61 mm[Hg] Barbara JOHNSTON [facility] 11-04-2021 09:48-0400 Heart rate 52 /min Barbara JOHNSTON [facility] 11-04-2021 09:48-0400 Systolic blood pressure 123 mm[Hg] Barbara JOHNSTON [facility] 10-24-2021 16:40-0400 Body height 177.8 cm Theo Vivian Other [employer] Other 10-24-2021 16:40-0400 Body mass index (BMI) [Ratio] 29.01 kg/m2 Theo Vivian Other [employer] Other 10-24-2021 16:40-0400 Body temperature 98 [degF] Theo Vivian Other [employer] Other 10-24-2021 16:40-0400 Body weight 91.72 kg Theo Vivian Other [employer] Other 10-24-2021 16:40-0400 Diastolic blood pressure 72 mm[Hg] Theo Vivian Other [employer] Other 10-24-2021 16:40-0400 Respiratory rate 18 /min Theo Vivian Other [employer] Other 10-24-2021 16:40-0400 SaO2% (BldA) [Mass fraction] 96 % Theo Vivian Other [employer] Other 10-24-2021 16:40-0400 Systolic blood pressure 130 mm[Hg] Theo Vivian Other [employer] Other Encounters Encounter Date Encounter Type Care Provider Facility Start: 04-01-2024 ambulatory Barbara Avila ty:TRISTIN Arias Start: 01-12-2024 End: 01-12-2024 ambulatory JOELLEN BENÍTEZ [facility] Start: 12-15-2023 End: 12-15-2023 ambulatory Genoveva NAZARIO Facility:[facility] Start: 12-15-2023 End: 12-15-2023 Patient encounter procedure Genoveva Nazario MD Work Phone: [facility] Comment on above: Prostate cancer (HCC ) (Primary Dx); Stage 3 chronic kidney disease, unspecified whether stage 3a or 3b CKD (HCC) Start: 12-10-2023 End: 12-10-2023 ambulatory SHAIKH DOTTY Facility:[facility] Start: 12-02-2023 End: 12-02-2023 ambulatory VASILE [facility] Start: 11-17-2023 End: 11-17-2023 Evaluation and management of inpatient [facility] Start: 11-17-2023 End: 11-18-2023 Evaluation and management of inpatient [facility]ILE [facility] Start: 11-05-2023 End: 11-05-2023 Encounter for other preprocedural examination VASILE MADERA [facility] Start: 11-05-2023 End: 11-05-2023 ambulatory VASILE [facility] Start: 10-15-2023 End: 10-15-2023 ambulatory Jose Martin Mchugh Facility:[facility] Start: 10-15-2023 End: 10-15-2023 Patient encounter procedure MD Shaikh Storm Work Phone: [facility] Work Phone: Start: 10-01-2023 End: 10-01-2023 ambulatory Barbara Johnston Facility:[facility] Start: 10-01-2023 End: 10-01-2023 ambulatory MD Shaikh Storm Work Phone: [facility] Work Phone: Start: 10-01-2023 End: 10-01-2023 Patient encounter procedure MD Shaikh Storm Work Phone: [facility] [place] Work Phone: Start: 09-28-2023 End: 09-28-2023 ambulatory SHAIKH DOTTY Not Available Start: 09-18-2023 End: 09-19-2023 ambulatory Barbara JOHNSTON Facility:[facility] Start: 09-18-2023 End: 09-18-2023 Patient encounter procedure Barbara JOHNSTON [facility] Start: 09-15-2023 Non-patient / Non-visit MD Yahaira Storm Work Phone: [facility] Work Phone: Start: 09-03-2023 End: 09-03-2023 ambulatory VASILE [facility] Start: 09-03-2023 End: 09-03-2023 ambulatory [facility] Start: 09-02-2023 End: 09-02-2023 ambulatory [facility] Start: 08-18-2023 End: 08-18-2023 ambulatory [facility] Start: 08-18-2023 End: 08-18-2023 ambulatory [facility] Start: 08-18-2023 End: 08-18-2023 Office outpatient visit 25 minutes Chaim [facility] Work Phone: [facility] Comment on above: Hypertension, unspec ified type; Mixed hyperlipidemia; Bilateral carotid artery disease, unspecified type ([facility]/HCC); History of OR (myocardial infarction); BMI 28.0-28.9,adult; ASHD (arteriosclerotic heart disease); PVD (peripheral vascular disease) ([facility]); Smoker; Chest pain, unspecified type Start: 08-10-2023 End: 08-11-2023 ambulatory Adalid Will MD Facility:[facility] Start: 07-08-2023 End: 07-08-2023 ambulatory [facility] Ambulatory Start: 07-07-2023 End: 07-08-2023 ambulatory CLAIRE JAMES [facility] Start: 06-29-2023 End: 06-29-2023 ambulatory SHAIKH DOTTY Not Available Start: 06-18-2023 End: 06-19-2023 ambulatory [facility] Start: 06-18-2023 End: 06-18-2023 Subsequent hospital visit by physician Tram Jama Stress Room 1 [facility] Start: 06-12-2023 End: 06-13-2023 ambulatory JOSE NICHOLS Facility:[facility] Start: 06-12-2023 End: 06-12-2023 Office outpatient new 45 minutes Kodi Reynolds MD Work Phone: [facility] [place] Comment on above: Spondylolisthesis of lumbar region (Primary Dx) Start: 06-10-2023 End: 06-10-2023 ambulatory Ramirez Ladarius Grayson Facility:[facility] Start: 06-04-2023 End: 06-04-2023 ambulatory CHAIM GRAYSON [facility] Ambulatory Start: 06-04-2023 End: 06-04-2023 Office consultation new/estab patient 80 min Chaim Grayson DO Work Phone: [facility] Comment on above: Hypertension, unspec ified type; Stage 3 chronic kidney disease, unspecified whether stage 3a or 3b CKD (CMS/HCC); Mixed hyperlipidemia; Bilateral carotid artery disease, unspecified type ([facility]/HCC); Smoker; Chest pressure Start: 05-21-2023 End: 05-21-2023 ambulatory Shaikh Dotty Facility:[facility] Start: 05-21-2023 End: 05-21-2023 ambulatory MD Shaikh Storm Work Phone: [facility] Work Phone: Start: 05-21-2023 End: 05-21-2023 Patient encounter procedure MD Shaikh Storm Work Phone: [facility]-Electrodiagnostics Work Phone: Start: 05-19-2023 Telephone encounter Genoveva Nazario MD Work Phone: Cancer [facility] Comment on above: Appointment Confirma tion Start: 05-19-2023 End: 05-20-2023 ambulatory SHAIKH DOTTY Facility:[facility] Start: 05-18-2023 ambulatory Jose rinaldi DO Work Phone: [facility] Start: 05-18-2023 Patient encounter procedure Jose Nichols DO Work Phone: Spine Medicine Comment on above: Consultation with a surgeon Start: 05-11-2023 End: 05-11-2023 ambulatory CARREON DOTTY Facility:[facility] Start: 04-27-2023 End: 04-27-2023 ambulatory CARREON DOTTY Not Available Start: 04-21-2023 End: 04-22-2023 ambulatory CLAIRE JAMES Facility[facility] Start: 04-21-2023 End: 04-22-2023 ambulatory CLAIRE STEPHENSRY Facility:[facility] Start: 04-21-2023 End: 04-21-2023 Lab Drop off CLAIRE JAMES [facility] Start: 04-21-2023 End: 04-21-2023 Patient encounter procedure CLAIRE JAMES [facility] [place] Start: 04-16-2023 Office outpatient vi sit 15 minutes Jose Martin Mchugh [facility] Vascular Surgery Start: 04-16-2023 End: 04-16-2023 ambulatory MD Shaikh Storm Work Phone: [employer] Other Start: 04-16-2023 End: 04-16-2023 Patient encounter procedure MD Shaikh Storm Work Phone: [facility]-Ultrasound [facility] Vascular Start: 03-23-2023 End: 03-23-2023 ambulatory Jose Martin Mchugh Facility:[facility] Start: 03-23-2023 End: 03-23-2023 Admission to same day surgery center MD Shaikh Storm Work Phone: [facility]-Interventional Radiology Work Phone: Start: 03-23-2023 End: 03-23-2023 ambulatory MD Shaikh Storm Work Phone: [facility] Work Phone: Start: 03-12-2023 End: 03-12-2023 ambulatory Jose Martin Mchugh Other [employer] Other Start: 03-12-2023 Office outpatient vi sit 25 minutes Jose Martin Mchugh [facility] Vascular Surgery Start: 03-12-2023 Telephone encounter Theo Vivian [facility] Start: 03-09-2023 End: 03-09-2023 ambulatory Theo Vivian Facility:[facility] Start: 03-09-2023 End: 03-09-2023 ambulatory MD Shaikh Storm Work Phone: [facility] Work Phone: Start: 03-09-2023 End: 03-09-2023 Patient encounter procedure MD Shaikh Storm Work Phone: [facility] [place] Work Phone: Start: 03-05-2023 End: 03-05-2023 ambulatory Jose Martin Mchugh Facility:[facility] Start: 03-05-2023 End: 03-05-2023 ambulatory MD Shaikh Storm Work Phone: [facility] Work Phone: Start: 03-05-2023 End: 03-05-2023 Patient encounter procedure MD Shaikh Storm Work Phone: [facility] [place] Work Phone: Start: 03-04-2023 End: 03-04-2023 ambulatory Jose Martin Mchugh Facility:[facility] Start: 03-04-2023 End: 03-04-2023 ambulatory MD Shaikh Storm Work Phone: [facility] Work Phone: Start: 03-04-2023 End: 03-04-2023 Patient encounter procedure MD Shaikh Storm Work Phone: [facility] [place] Work Phone: Start: 02-20-2023 End: 02-20-2023 ambulatory Lyla Nazario Facility:[facility] Start: 02-20-2023 End: 02-20-2023 Admission to same day surgery center MD Shaikh Storm Work Phone: [facility]gery [facility] [place] Start: 02-18-2023 End: 02-18-2023 ambulatory Bonnie Tan Other [facility] Other Start: 02-18-2023 Office outpatient ne w 60 minutes Bonnie Johnbennett [facility] Vascular Surgery Start: 02-11-2023 End: 02-12-2023 ambulatory CLAIRE JAMES Facility:[facility] Start: 02-11-2023 End: 02-11-2023 Patient encounter procedure CLAIRE JAMES [facility] Start: 02-06-2023 End: 02-06-2023 ambulatory Shaikh Dotty Facility:[facility] Start: 02-06-2023 End: 02-06-2023 ambulatory MD Shaikh Storm Work Phone: [facility] Work Phone: Start: 02-06-2023 End: 02-06-2023 Departed Referred MD Shaikh Storm Work Phone: [facility] Loc-Yns-Uklnzv[facility] Testing Work Phone: Start: 02-06-2023 End: 02-06-2023 Patient encounter procedure MD Shaikh Storm Work Phone: [facility] Wtt-Wkn-Fzsqauos Testing Work Phone: Start: 01-20-2023 Telephone encounter Constance BROWN H ematology/Oncology Comment on above: Social Work Services Start: 01-19-2023 End: 01-19-2023 ambulatory SHAIKH DOTTY Facility:[facility] Start: 01-19-2023 End: 01-19-2023 Patient encounter procedure Jose Nichols DO Work Phone: Spine Medicine Comment on above: Spinal stenosis, 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); Foraminal stenosis of lumbar region; Peripheral artery disease (HCC); Prostate cancer (HCC) Start: 01-15-2023 Telephone encounter Jose Nichols DO Work Phone: [address] [place] [address] Comment on above: Orders; Appointment Start: 01-09-2023 End: 01-09-2023 ambulatory Jennie Ferrera Facility:[facility] Start: 01-09-2023 End: 01-09-2023 ambulatory MD Shaikh Storm Work Phone: [facility] Work Phone: Start: 01-09-2023 End: 01-09-2023 Patient encounter procedure MD Shaikh Storm Work Phone: [facility] [place] Work Phone: Start: 01-06-2023 Telephone encounter Genoveva Nazario MD Work Phone: Radiation Oncology Comment on above: Orders Start: 01-06-2023 ambulatory CLAIRE JAMES Facili ty:[facility] [place] Start: 01-05-2023 Telephone encounter Evelyn Chamberlain RN [facility] INTERVENTIONAL RADIOLOGY Comment on above: Patient Question; Ap pointment Start: 12-03-2022 End: 12-04-2022 ambulatory CLAIRE JAMES [facility] Start: 12-03-2022 End: 12-03-2022 Patient encounter procedure [facility] Start: 11-18-2022 Telephone encounter Genoveva Nazario MD Work Phone: Cancer [facility] Comment on above: Referral Information Start: 11-18-2022 End: 11-18-2022 ambulatory Elizabeth Freire APRN.CNP Work Phone: Hematology/Oncology Comment on above: Prostate cancer (HCC ); Stage 3 chronic kidney disease, unspecified whether stage 3a or 3b CKD (HCC) Start: 11-18-2022 End: 11-18-2022 Patient encounter procedure Genoveva Nazario MD Work Phone: Radiation Oncology Comment on above: History of prostate cancer (Primary Dx); Spinal arthritis; Spinal stenosis of lumbar region, unspecified whether neurogenic claudication present Start: 10-28-2022 End: 10-29-2022 ambulatory SHAIKH Geri STORM Facility:[facility] Start: 10-09-2022 End: 10-10-2022 ambulatory ALBERTO DE SANTIAGO . Facility:[facility] Start: 07-15-2022 ambulatory RUT SAUNDRAANISAKARINA Margarita ty:[facility] Start: 06-06-2022 Telephone encounter Constance BROWN H ematology/Oncology Comment on above: Social Work Services Start: 06-05-2022 End: 06-05-2022 Patient encounter procedure Lab/Port Donnie Jama Work Phone: Radiation Oncology Comment on above: Urinary tract infect ion without hematuria, site unspecified (Primary Dx) Start: 05-15-2022 Telephone encounter Genoveva Nazario MD Work Phone: Radiation Oncology Comment on above: Results; Appointment Start: 05-15-2022 End: 05-16-[address] HOSEA OLIVA . Facility: Start: 05-09-2022 End: 05-09-2022 ambulatory MD Shaikh Storm Work Phone: [facility] Work Phone: Start: 05-09-2022 End: 05-09-2022 Patient encounter procedure MD Shaikh tSorm Work Phone: [facility] [place] Start: 04-30-2022 Social Work Constance BROWN Hematolo gy/Oncology Start: 04-23-2022 End: 04-23-2022 ambulatory MD Shaikh Storm Work Phone: [facility] Work Phone: Start: 04-23-2022 End: 04-23-2022 Patient encounter procedure MD Shaikh Storm Work Phone: [facility] [place] Start: 04-23-2022 Radiation Oncology Note Genoveva Nazario MD Work [...] 03-31-2022 End: 03-31-2022 Social Work Constance Durand R&D ENGINEER Hematology/Oncology Comment on above: Malignant neoplasm o f prostate (HCC) (Primary Dx) Start: 03-27-2022 End: 03-27-2022 Patient encounter procedure Lab/[facility] Don[facility]i Jama Work Phone: Radiation Oncology Comment on [...] encounter procedure Genoveva Nazario MD Work Phone: [place] Start: 03-12-2022 Radiation Oncology Note G Mahamed Nazario MD Work Phone: Radiation Oncology Comment on above: Treatment Planning Start: 03-12-2022 Social Work Constance Ladarius R&D ENGINEER Hematolo gy/Oncology Start: 03-04-2022 Telephone encounter Constance BROOKSW H ematology/Oncology Comment on above: Social Work Services Start: 03-03-2022 End: 03-03-2022 Patient encounter procedure Genoveva Nazario MD Work Phone: Radiation Oncology Comment on above: Malignant neoplasm o f prostate (HCC) (Primary Dx) Start: 02-25-2022 Telephone encounter Genoveva Jose Nazario MD Work Phone: Radiation Oncology Comment on above: Patient Update; Appo intment Start: 02-13-2022 ambulatory Facility:1 [id number] Start: 02-13-2022 End: 02-13-2022 Patient encounter procedure Zeinab Y Reshma [facility] Start: 02-11-2022 End: 02-11-[address] HOSEA OLIVA . Facility:[facility] Start: 02-09-2022 Encounter for preprocedural laboratory examination DR HOSEA OLIVA . [facility] Start: 02-07-2022 Telephone encounter Genoveva Nazario MD Work Phone: Radiation Oncology Comment on above: Patient Update Start: 02-07-2022 End: 02-08-[address] HOSEA OLIVA . Facility:[facility] Start: 02-07-2022 End: 02-08-2022 Encounter for preprocedural laboratory examination DR HOSEA OLIVA . Facility:[facility] Start: 01-31-[address] HOSEA OLIVA . Faci lity:[facility] Start: 01-30-2022 End: 01-31-2022 ambulatory THEO VIVIAN Facility:[facility] Start: 01-23-2022 End: 01-24-2022 ambulatory BERNIE HOBBS . Facility:[facility] Start: 01-07-2022 End: 08-09-[address] HOSEA OLIVA . Facility:[facility] Start: 12-26-2021 End: 12-27-2021 ambulatory BERNIE HOBBS . Facility:[facility] Start: 12-18-2021 Telephone encounter Genoveva Jose Nazario MD Work Phone: Radiation Oncology Comment on above: Patient Update Start: 12-17-2021 End: 12-17-[address] HOSEA OLIVA . Facility:[facility] Start: 12-12-2021 End: 12-13-2021 ambulatory BERNIE HOBBS . Facility:[facility] Start: 12-10-2021 End: 12-10-2021 Patient encounter procedure Genoveva Nazario MD Work Phone: Radiation Oncology Comment on above: Malignant neoplasm o f prostate (HCC) (Primary Dx) Start: 11-04-2021 End: 11-04-2021 Patient encounter procedure Barbara JOHNSTON [facility] Start: 10-24-2021 End: 10-24-2021 ambulatory Theo Vivian Other [employer] Other Start: 10-24-2021 Office outpatient ne w 45 minutes Theo Vivian [facility] Nephrology Rene Procedures Date Procedure Procedure Detail Performing Clinician Start: 08-18-2023 ECG 12-LEAD CHAIM REYES Start: 08-18-2023 FOLLOW UP IN CARDIOLOGY CHAIM GRAYSON Start: 08-18-2023 Ecg routine ecg w/le ast [...] Phone: Start: 06-06-2021 Transurethral prostatectomy Barbara JOHNSTON Start: 04-23-2021 Transrectal biopsy o f prostate using ultrasound guidance Barbara JOHNSTON Start: 04-23-2021 Transurethral cystoscopy Barbara JOHNSTON Bilateral cataracts (disorder) CLAIRE JMAES Colonoscopy Barbara JOHNSTON Endarterectomy CLAIRE Robins Procedure on back Barbara ROWE Plan of Treatment Date Care Activity Detail Author Start: 11-17-2026 Diabetes Screening Diabetes Screening [facility] Start: 06-10-2026 Diabetes Screening Diabetes Screening [facility] Start: 12-14-2024 End: 03-15-2025 Prostate specific Ag [Mass/volume] in Serum or Plasma PROSTATE-SPECIFIC ANTIGEN DIAGNOSTIC Lab Routine Prostate cancer (HCC) Expected: 12/14/2024, Expires: 03/15/2025 [facility] Work Phone: Comment on above: Expected: 12/14/2024, Expires: Start: 12-13-2024 End: 12-13-2024 Patient encounter procedure 12/13/2024 1:15 PM EDT Office Visit Radiation Oncology [address] [place] [address] Genoveva Nazario MD [address] [place] [address] [place] [address] 1 yr rv Radiation Oncology Comment on above: 1 yr rv Start: 12-06-2024 End: 12-06-2024 Patient encounter procedure 12/06/2024 1:00 PM EDT Office Visit [facility] [address] [place] [address] Lab [facility] Comment on above: Lab Start: 11-17-2024 Complete blood count Hemoglobin/Hematocrit [facility] Start: 11-17-2024 Creatinine measurement Serum Creatinine [facility] Start: 08-18-2024 End: 08-18-2024 Patient encounter procedure 08/18/2024 10:00 AM EDT Office Visit [facility] [address] [place] [address] Chaim Grayson DO [address] [place] [address] [facility] Start: 06-10-2024 Creatinine measurement Serum Creatinine [facility] Start: 01-31-2024 Influenza vaccination Influenza Vaccine (#1) [facility] Start: 10-15-2023 Ankle brachial pressure index [facility] Start: 08-18-2023 End: 08-18-2023 Patient encounter procedure 08/18/2023 11:10 AM EDT Office Visit [facility] [address] [place] [id number] Chaim Grayson DO [address] [place] [address] [facility] Start: 07-08-2023 End: 07-08-2023 Clinical Support 07/08/2023 10:30 AM EST Clinical Support [facility] [address] [place] [address] [facility] Start: 06-04-2023 End: 06-04-2024 Alanine aminotransferase [Enzymatic activity/volume] in Serum or Plasma by With P-5'-P Alanine Aminotransferase Lab Routine Hypertension, unspecified type Bilateral carotid artery disease, unspecified type (CMS/HCC) Expected: 06/04/2023 (Approximate), Expires: 06/04/2024 [facility] Work Phone: Comment on above: Expected: 06/04/2023 (Approximate), Expi res: 06/04/2024 Start: 06-04-2023 End: 06-04-2024 Aspartate aminotransferase [Enzymatic activity/volume] in Serum or Plasma by With P-5'-P Aspartate Aminotransferase Lab Routine Hypertension, unspecified type Bilateral carotid artery disease, unspecified type (CMS/HCC) Expected: 06/04/2023 (Approximate), Expires: 06/04/2024 [facility] Work Phone: Comment on above: Expected: 06/04/2023 (Approximate), Expi res: 06/04/2024 Start: 06-04-2023 End: 06-04-2024 Basic metabolic 2000 panel - Serum or Plasma Basic Metabolic Panel Lab Routine Hypertension, unspecified type Mixed hyperlipidemia Expected: 06/04/2023 (Approximate), Expires: 06/04/2024 [facility] Work Phone: Comment on above: Expected: 06/04/2023 (Approximate), Expi res: 06/04/2024 Start: 06-04-2023 End: 06-04-2024 Lipid 1996 panel - Serum or Plasma Lipid Panel Lab Routine Mixed hyperlipidemia Expected: 06/04/2023 (Approximate), Expires: 06/04/2024 [facility] Work Phone: Comment on above: Expected: [...] 06-01-2023 Advance Directive Discussion Advance Directive Discussion [facility] Start: 06-01-2023 Behavioral Health Screening Behavioral Health Screening [facility] Start: 06-01-2023 Depression Assessment Depression Assessment [facility] Start: 05-20-2023 End: 07-20-2023 Prostate specific Ag [Mass/volume] in Serum or Plasma PSA/PROSTSPECAG DIAG Lab Routine History of prostate cancer Expected: 05/20/2023, Expires: 07/20/2023 [facility] Work Phone: Comment on above: Expected: 05/20/2023, Expires: Start: 03-27-2023 Complete blood count Hemoglobin/Hematocrit [facility] Start: 03-27-2023 HEMOGLOBIN/HEMATOCRIT HEMOGLOBIN/HEMATOCRIT [facility] Start: 03-23-2023 [facility] Start: 03-09-2023 Bacteria identified in Urine by Culture [facility] Start: 03-05-2023 Pulse volume recorder plethysmography [facility] Start: 02-20-2023 End: 02-20-2023 [facility] Start: 01-30-2023 Covid-19 Vaccine (3 - 2023-24 season) Covid-19 Vaccine () [facility] Start: 01-30-2023 Influenza vaccination [facility] Start: 06-03-2022 End: 08-03-2022 Bacteria identified in Urine by Culture URINE CULTURE Microbiology Routine Hematuria, unspecified type Malignant neoplasm of prostate (HCC) Expected: 06/03/2022 (Approximate), Expires: 08/03/2022 [facility] Work Phone: Comment on above: Expected: 06/03/2022 (Approximate), Expi res: 08/03/2022 Start: 06-03-2022 End: 08-03-2022 UA DIP B/O UA DIP B/O Lab Routine Hematuria, unspecified type Malignant neoplasm of prostate (HCC) Expected: 06/03/2022 (Approximate), Expires: 08/03/2022 [facility] Work Phone: Comment on above: Expected: 06/03/2022 (Approximate), Expi res: 08/03/2022 Start: 06-01-2022 ADVANCE DIRECTIVE DISCUSSION ADVANCE DIRECTIVE DISCUSSION [facility] Start: 06-01-2022 DEPRESSION ASSESSMENT DEPRESSION ASSESSMENT [facility] Start: 04-21-2022 End: 06-21-2022 Prostate specific Ag [Mass/volume] in Serum or Plasma PSA/PROSTSPECAG DIAG Lab Routine Malignant neoplasm of prostate (HCC) Expected: 04/21/2022, Expires: 06/21/2022 [facility] Work Phone: Comment on above: Expected: 04/21/2022, Expires: 3 Start: 03-27-2022 End: 03-18-2023 CBC W Auto Differential panel - Blood CBC + DIFF Lab Routine Malignant neoplasm of prostate (HCC) Expected: 03/27/2022, Expires: 03/18/2023 [facility] Work Phone: Comment on above: Expected: 03/27/2022, Expires: 3 Start: 01-30-2022 Influenza vaccination INFLUENZA (#1) [facility] Start: 06-01-2021 ADVANCE DIRECTIVE DISCUSSION ADVANCE DIRECTIVE DISCUSSION [facility] Start: 06-01-2021 DEPRESSION ASSESSMENT DEPRESSION ASSESSMENT [facility] Start: 12-23-2020 COVID-19 VACCINE (3 - Booster for Moderna series) COVID-19 VACCINE (3 - Booster for Moderna series) [facility] Start: 09-20-2020 COVID-19 VACCINE (3 - Booster for Moderna series) COVID-19 VACCINE (3 - Booster for Moderna series) [facility] Start: 09-20-2020 COVID-19 VACCINE (3 - Moderna series) COVID-19 VACCINE (3 - Moderna series) [facility] Start: 09-20-2020 COVID-19 VACCINE (4 - Booster) COVID-19 VACCINE (4 - Booster) [facility] Start: 09-20-2020 COVID-19 Vaccine (4 - Moderna series) COVID-19 Vaccine (4 - Moderna series) [facility] Start: 2005 RSV Vaccine (1 - 1-dose 60+ series) RSV Vaccine (1 - 1-dose 60+ series) [facility] Start: 1995 Influenza vaccination LUNG CANCER SCREENING [facility] Start: 1995 Screening for malignant neoplasm of lung Lung Cancer Screening [facility] Start: 1995 SHINGRIX VACCINE (1 of 2) SHINGRIX VACCINE (1 of 2) [facility] Start: 1995 Zoster Vaccines (1 of 2) Zoster Vaccines (1 of 2) [facility] Start: 1990 DIABETES SCREEN DIABETES SCREEN [facility] Start: 1990 Diabetes Screening Diabetes Screening [facility] Start: 1967 DTaP/Tdap/Td Vaccines (1 - Tdap) DTaP/Tdap/Td Vaccines (1 - Tdap) [facility] Start: 1964 Urine microalbumin profile [facility] Start: 1963 ANNUAL PCP TEAM CHRONIC DISEASE VISIT ANNUAL PCP TEAM CHRONIC DISEASE VISIT [facility] Start: 1963 Creatinine measurement Serum Creatinine [facility] Start: 1963 HEPATITIS C SCREENING HEPATITIS C SCREENING [facility] Start: 1963 Hepatitis C screening Hepatitis C Screening [facility] Start: 1963 SERUM CREATININE SERUM CREATININE [facility] Start: 1957 Adult depression screening assessment DEPRESSION SCREENING [facility] Start: 1951 Pneumococcal Vaccine: 65+ (1 - PCV) Pneumococcal Vaccine: 65+ (1 - PCV) [facility] Start: 1951 Pneumococcal Vaccine: 65+ (1 of 2 - PCV) Pneumococcal Vaccine: 65+ (1 of 2 - PCV) [facility] Start: 1951 Pneumococcal Vaccine: 65+ Years (1 - PCV) Pneumococcal Vaccine: 65+ Years (1 - PCV) [facility] Start: 1951 PNEUMOCOCCAL: 65+ (1 - PCV) PNEUMOCOCCAL: 65+ (1 - PCV) [facility] Start: 1945 Lipid panel Lipid Panel [facility] Start: 1945 Medicare Annual Wellness Visit Medicare Annual Wellness Visit (AWV) [facility] CT SIM PLANNING RADI ATION ONCOLOGY CT SIM PLANNING RADIATION ONCOLOGY Radiology Routine Malignant neoplasm of prostate (HCC) Ordered: 03/03/2022 [facility] Work Phone: Comment on above: Ordered: 03/03/2022 End: 12-19-2023 Mri spinal canal lumbar w/o & w/contr matrl MRI LUMBAR SPINE WO/W IVCON Radiology Routine Spinal stenosis of lumbar region, unspecified whether neurogenic claudication present 1 Occurrences starting 11/19/2022 until 12/19/2023 [facility] Work Phone: Comment on above: 1 Occurrences starting 11/19/2022 until 12/19/2023 End: 12-21-2023 Mri spinal canal lumbar w/o & w/contr matrl MRI LUMBAR SPINE WO/W IVCON Radiology Routine Spinal stenosis of lumbar region without neurogenic claudication 1 Occurrences starting 11/21/2022 until 12/21/2023 [facility] Work Phone: Comment on above: 1 Occurrences starting 11/21/2022 until 12/21/2023 End: 02-05-2024 Mri spinal canal lumbar w/o & w/contr matrl MRI LUMBAR SPINE WO/W IVCON Radiology Routine Spinal stenosis of lumbar region, unspecified whether neurogenic claudication present 1 Occurrences starting 01/06/2023 until 02/05/2024 [facility] Work Phone: Comment on above: 1 Occurrences starting 01/06/2023 until 02/05/2024 Patient Education [facility] Work Phone: Patient referral [facility] Work Phone: [facility] Immunizations Immunization Date Immunization Notes Care Provider Fa jed 07-26-2020 SARS-CoV-2 (COVID-19 ) mRNA-1273 vaccine Barbara JOHNSTON [facility] 06-28-2020 SARS-CoV-2 (COVID-19 ) mRNA-1273 vaccine Barbara JOHNSTON [facility] 06-25-2020 COVID-19 mRNA-1273 (Moderna) MD Shaikh Storm Work Phone: [facility] NEGATED: Highlighted row has not occurred!04-21-2023 influenza virus vaccine, unspecified formulation CLAIRE JAMES [facility] Payers Date Payer Category Payer Unknown [id number] 2022 Private Health Insurance [id number] 2021 Medicare HUMANA MEDICARE HUMANA GOLD PLUS [id number] 2021-[facility] [phone] [place] [id number] O [id number] .[id number] 2021 Medicare [id number]. [id number] .[id number] 1959 Private Health Insurance [id number] 2.16.840.1.023475.19 1959 Self-pay [id number] 1945 Unknown [id number] 2.16.840.1.778474.3.579.2 .356 1945 Unknown [id number] 2.16.840.1.202627.3.579.2 .593 1945 Unknown [id number] 2.16.840.1.144412.3.579.2 .593 1945 Unknown [id number] 2.16.840.1.845356.3.579.2 .593 1945 Unknown [id number] 2.16.840.1.192046.3.579.2 .593 1945 Unknown [id number] 2.16.840.1.355727.3.579.2 .593 1945 Unknown [id number] 2.16.840.1.522344.3.579.2 .593 1945 Unknown [id number] 2.16.840.1.500935.3.579.2 .593 1945 Unknown [id number] 2.16.840.1.028714.3.579.2 .593 1945 Unknown [id number] 2.16.840.1.928349.3.579.2 .593 1945 Unknown [id number] 2.16.840.1.920504.3.579.2 .593 1945 Unknown [id number] 2.16.840.1.591439.3.579.2 .593 1945 Unknown [id number] 2.16.840.1.824378.3.579.2 .593 1945 Unknown [id number] 2.16.840.1.674155.3.579.2 .593 1945 Unknown [id number] 2.16.840.1.187609.3.579.2 .593 1945 Unknown [id number] 2.16.840.1.151407.3.579.2 .1246 1945 Unknown [id number] 2.16.840.1.775482.3.579.2 .1246 1945 Unknown [id number] 2.16.840.1.791007.3.579.2 .1246 1945 Unknown [id number] 2.16.840.1.493240.3.579.2 .1246 1945 Unknown [id number] 2.16.840.1.582621.3.579.2 .1246 1945 Unknown [id number] 2.16.840.1.525013.3.579.2 .196 1945 Unknown [id number] 2.16.840.1.131041.3.579.2 .1259 1945 Unknown [id number] 2.16.840.1.517578.3.579.2 .1259 1945 Unknown [id number] 2.16.840.1.316716.3.579.2 .1259 1945 Unknown [id number] 2.16.840.1.155291.3.579.2 .727 1945 Unknown [id number] 2.16.840.1.956293.3.579.2 .727 1945 Unknown [id number] 2.16.840.1.752358.3.579.2 .727 1945 Unknown [id number] 2.16.840.1.834569.3.579.2 .727 1945 Unknown [id number] 2.16.840.1.105045.3.579.2 .727 1945 Unknown [id number] 2.16.840.1.319735.3.579.2 .727 1945 Unknown [id number] 2.16.840.1.658974.3.579.2 .72 1945 Unknown [id number] 2.16.840.1.141115.3.579.2 .72 1945 Unknown [id number] 2.16.840.1.215538.3.579.2 .1945 Unknown [id number] 2.16.840.1.779077.3.579.2 .1244 1945 Unknown [id number] 2.16.840.1.746643.3.579.2 .124 1945 Unknown [id number] 2.16.840.1.580059.3.579.2 .1244 Unknown [id number] 2.16.840.1.309394.3.579.2 .531 Unknown [id number] 2.16.840.1.157072.3.579.2 .531 Unknown [id number] 2.16.840.1.828572.3.579.2 .531 Unknown [id number] 2.16.840.1.302837.3.579.2 .531 Unknown [id number] 2.16.840.1.481783.3.579.2 .531 Unknown [id number] 2.16.840.1.328449.3.579.2 .531 Unknown [id number] 2.16.840.1.954444.3.579.2 .531 Unknown [id number] 2.16.840.1.180985.3.579.2 .531 Unknown [id number] 2.16.840.1.196072.3.579.2 .531 Unknown [id number] 2.16.840.1.592107.3.579.2 .531 Unknown [id number] 2.16.840.1.745132.3.579.2 .531 Unknown [id number] 2.16.840.1.348992.3.579.2 .531 Social History Date Type Detail Facility Start: 11-04-2021 End: 09-18-2023 Tobacco smoking status Heavy tobacco smoker (finding) [facility] Start: 11-26-2021 End: 03-23-2023 Tobacco smoking status Smoker (finding) [facility] Start: 05-13-2022 End: 11-18-2022 Sex Assigned At Male [facility] Other Start: 12-10-2021 End: 03-18-2022 Tobacco smoking status NHIS Smokes tobacco daily [facility] Start: 12-10-2021 End: 11-18-2022 Cigarettes smoked current (pack per day) - Reported 1 [facility] Start: 12-10-2021 End: 03-18-2022 Tobacco use and exposure Smokeless tobacco non-user [facility] Start: 12-10-2021 End: 12-15-2023 Alcohol intake Ex-drinker (finding) [facility] Start: 12-10-2021 End: 03-18-2022 Tobacco Comment 2 ppd x 20 yrs, 1 ppd x 40 yrs [facility] Start: 1945 Sex Assigned At Not on file [facility] Start: 11-30-2021 End: 08-18-2023 Exposure to SARS-CoV-2 (event) Not sure [facility] History of tobacco use Cigarette Smoker [facility] Start: 1945 Sex Assigned At Male [facility] Tobacco smoking status Never [facility] Start: 01-15-2023 Gender identity Identifies as male gender (finding) [facility] Start: 01-15-2023 Sexual orientation Heterosexual (finding) [facility] Start: 06-04-2023 Tobacco Comment Trying to quit [facility] Work Phone: Medical Equipment Procedure Code Equipment Code Equipment Origin al Text Equipment Identifier Dates Angiogram, lower extremity, left Multiple peripheral artery stent, bare-metal [id number] [facility] Start: 03-23-2023 Goals Date Patient Goal Desired Activity /State Functional Status Date Assessment Result Facility 09-18-2023 Functional Status N/A [facility] 04-21-2023 Functional Status N/A [facility] 02-11-2023 Functional Status N/A [facility] 12-03-2022 Functional Status N/A [facility] Clinical Notes 10-24-2021 to 01-12-2024 Note Date & Type Note Facility 01-12-2024 Note SUBJECTIVE: Chief complaint: Postoperative visit status post right L3 hemilaminectomy with resection of synovial cyst, left L4 hemilaminectomy and partial medial and lateral facetectomy with foraminotomy, right L5 hemilaminotomy and partial medial and lateral facetectomy on 11/17/[address] Madera.. History of present illness: Reports from a back standpoint, he has been doing very well. He denies back or leg pain, weakness, paresthesias. Denies falls or imbalance. He does have chronic urinary urgency and nocturia due to previous prostate disease; this is unchanged. He denies bowel incontinence or bowel changes. He does report that he would like to stop taking his [place] and his gabapentin. He was on [place] 5/325 for many years per pain management. Dose was increased to [place] 7.5 325 recently due to his increased back symptoms. Just taking gabapentin once per day. He does state that when he does not take his [place] often enough, he seems to have a weird sensation in his bilateral forearms, hands, calves, feet that abates once he takes the medication. He has recently had some poor sleep because of the symptoms. Has not addressed this with his pain management provider. Review of systems: As in HPI. Past Medical History: Diagnosis Date Adverse effect of anesthesia 2013 Trouble controlling PB - drops very low Coronary artery disease 2012 Dental disease partial denture Diverticulitis Diverticulitis of colon Diverticulosis Hypertension 1996 Kidney disease Myocardial infarction (CMS/HCC) 1996 PONV (postoperative nausea and vomiting) Prostate cancer (CMS/HCC) PVD (peripheral vascular disease) (CMS/HCC) PVD (peripheral vascular disease) (CMS/HCC) left leg stent Stroke (CMS/HCC) 2012 Past Surgical History: Procedure Laterality Date ANGIOPLASTY 2022 BOWEL RESECTION 1985 CAROTID ENDARTERECTOMY 2013 COLON SURGERY 1985 CORONARY STENT PLACEMENT 1996 EYE SURGERY 2021 LUMBAR LAMINECTOMY 11/17/2023 right L3 hemilaminectomy with resection of synovial cyst, left L4 hemilaminectomy and partial medial and lateral facetectomy with foraminotomy, right L5 hemilaminotomy and partial medial and lateral facetectomy on 11/17/[address] Madera. SHOULDER SURGERY Bilateral 1979 and 1989 SPINAL CORD DECOMPRESSION TRANSURETHRAL RESECTION OF PROSTATE 2021 Social History Tobacco Use Smoking status: Every Day Packs/day: 0.25 Years: 60.00 Additional pack years: 0.00 Total pack years: 15.00 Types: Cigarettes Passive exposure: Past Smokeless tobacco: Never Vaping Use Vaping Use: Never used Substance Use Topics Alcohol use: Not Currently Comment: Have not drank for years Drug use: Never Family History Problem Relation Name Age of Onset Hypertension Mother Cynthia Elliott Diabetes Father Javier Broussard OBJECTIVE: Medications: acetaminophen amLODIPine aspirin capsule baclofen ergocalciferol gabapentin HYDROcodone-acetaminophen nitroglycerin omeprazole pravastatin valsartan varenicline Current Outpatient Medications: acetaminophen (Tylenol) 325 mg tablet, Take 2 tablets (650 mg) by mouth every 8 (eight) hours. Use this three times a day for at least the first 2 weeks post-op to help with pain control - you can buy over the counter, Disp: 30 tablet, Rfl: 0 amLODIPine (Norvasc) 10 mg tablet, Take 1 tablet by mouth in the morning., Disp: , Rfl: aspirin 81 mg capsule, Take 81 mg by mouth in the morning. Restart on Thursday11/22/2023, Disp: 30 capsule, Rfl: 0 baclofen (Lioresal) 10 mg tablet, Take 10 mg by mouth at bedtime., Disp: , Rfl: ergocalciferol (Vitamin D-2) 1.25 MG (97031 Units) capsule, Take 1,250 mcg by mouth 1 (one) time per week., Disp: , Rfl: gabapentin (Neurontin) 100 mg capsule, Take 100 mg by mouth at bedtime., Disp: , Rfl: HYDROcodone-acetaminophen ([place]) 7.5-325 mg tablet, 1 tablet., Disp: , Rfl: nitroglycerin (Nitrostat) 0.4 mg SL tablet, Refills(s) 0, Disp: , Rfl: omeprazole (PriLOSEC) [address] capsule, TAKE 1 CAPSULE BY MOUTH IN THE MORNING BEFORE MEALS DO NOT CRUSH OR CHEW, Disp: , Rfl: pravastatin (Pravachol) 10 mg tablet, Take 10 mg by mouth at bedtime., Disp: , Rfl: valsartan (Diovan) 80 mg tablet, Take 80 mg by mouth in the morning., Disp: , Rfl: varenicline (Chantix) 0.5 mg tablet, Take 0.5 mg by mouth in the morning and at bedtime. Take with full glass of water., Disp: , Rfl: tiZANidine (Zanaflex) 2 mg tablet, Take 1 tablet (2 mg) by mouth every 6 (six) hours if needed for muscle spasms., Disp: 60 tablet, Rfl: 1 Allergies: Allergies Allergen Reactions Ezetimibe GI intolerance Other reaction(s): Nausea/vomiting Jeeapjg-Yej-Oks Reductase Inhibitors Other Muscle/Joint Pain Other Reaction(s): lipitor Exam: Vitals reviewed: Temp: [36.6 ???C (97.8 ???F)] 36.6 ???C (97.8 ???F) Heart Rate: [76] 76 BP: (146)/(73) 146/73 No intake/output data recorded. No intake/outpu (more content not included)... [facility] 12-22-2023 Evaluation note Diagnosis Prostate cancer (HCC)- Primary Malignant neoplasm of prostate Stage 3 chronic kidney disease, unspecified whether stage 3a or 3b CKD (HCC) documented in this encounter [facility]07-16-2024 Nurse Note* Diane Parada LPN - 12/15/2023 2:36 PM EDT AUA= 13 [facility]07-16-2024 Nurse Note* Diane Parada LPN - 12/15/2023 2:36 PM EDT AUA= 13 [facility] History of Present illness Narrative* Genoveva Nazario MD - 12/15/2023 2:30 PM EDT Radiation Oncology - Follow Up Note PATIENT NAME: Yesenia Broussard PATIENT DIAGNOSIS: Prostate adenocarcinoma, initial PSA 9.95, biopsy [place] score 3 + 4 = 7 (grade [...] well. Denies any new problems or concerns. PSA HISTORY: PSA (ng/mL) Date Value 12/10/2023 0.43 05/11/2023 0.43 11/17/2022 0.50 PSA. (no units) Date Value 05/09/2022 2.810 ALLERGIES No Known Allergies oxyCODONE IR (ROXICODONE) 5 mg immediate release tablet TAKE 1 TO 2 TABLETS BY MOUTH EVERY 6 HOURS NEEDED for up to 7 (SEVEN) days ergocalciferol, vitamin D2, (VITAMIN D2 ORAL) Take by mouth. aspirin 81 mg cap Take by mouth. pravastatin (PRAVACHOL) 10 mg tablet pravastatin 10 mg tablet amLODIPine (NORVASC) 10 mg tablet amlodipine 10 mg tablet baclofen (LIORESAL) 10 mg tablet baclofen 10 mg tablet REVIEW OF SYSTEMS: D/N = 5-6/2-4 Hematuria: none Dysuria: none Incontinence: Yes Urgency: mild Catheter use: none Medications to aid urination: y - Total AUA Score: 13 Bowel movement frequency: 1/day Bowel movement quality: normal Blood per rectum: none PHYSICAL EXAM: BP 137/76 Pulse 86 Temp 36.6 C (97.8 F) Resp 16 Wt 86.9 kg (191 lb 9.3 oz) SpO2 98% BMI27.49 kg/m KPS: 90 General Appearance: Alert and oriented. No acute distress. Rectal exam is deferred. ASSESSMENT/PLAN: Prostate adenocarcinoma, initial PSA 9.95, biopsy Nicola score 3 + 4 = 7 (grade group 2), clinical stage T1b, N0, M0, stage IIB [T1-T2, N0, M0, PSA <20, GG 2] (AJCC 8th ed.), s/pdefinitive radiation completed April 2022. 1. Prostate cancer. Patient is doing well stable and low PSA plan to see patient back in 1 year with repeat PSA. 2. Spinal stenosis, lumbar spine. Follows with neurosurgery Signed by: Genoveva Nazario MD cc: Shaikh Dotty [address] [place] [id number] [facility] NoteHNO ID: [id number] Author: Genoveva NAZARIO MD Service: ? Author Type: Physician Type: Progress Notes Filed: 12/22/2023 08:57 Note Text: Radiation Oncology - Follow Up Note PATIENT NAME: Yesenia Broussard PATIENT DIAGNOSIS: Prostate adenocarcinoma, initial PSA 9.95, biopsy [place] score 3 + 4 = 7 (grade [...] well. Denies any new problems or concerns. PSA HISTORY: PSA (ng/mL) Date Value 12/10/2023 0.43 05/11/2023 0.43 11/17/2022 0.50 PSA. (no units) Date Value 05/09/2022 2.810 ALLERGIES No Known Allergies oxyCODONE IR (ROXICODONE) 5 mg immediate release tablet TAKE 1 TO 2 TABLETS BY MOUTH EVERY 6 HOURS NEEDED for up to 7 (SEVEN) days ergocalciferol, vitamin D2, (VITAMIN D2 ORAL) Take by mouth. aspirin 81 mg cap Take by mouth. pravastatin (PRAVACHOL) 10 mg tablet pravastatin 10 mg tablet amLODIPine (NORVASC) 10 mg tablet amlodipine 10 mg tablet baclofen (LIORESAL) 10 mg tablet baclofen 10 mg tablet REVIEW OF SYSTEMS: D/N = 5-6/2-4 Hematuria: none Dysuria: none Incontinence: Yes Urgency: mild Catheter use: none Medications to aid urination: y - Total AUA Score: 13 Bowel movement frequency: 1/day Bowel movement quality: normal Blood per rectum: none PHYSICAL EXAM: BP 137/76 Pulse 86 Temp 36.6 ?C (97.8 ?F) Resp 16 Wt 86.9 kg (191 lb 9.3 oz) SpO2 98% BMI 27.49 kg/m? KPS: 90 General Appearance: Alert and oriented. No acute distress. Rectal exam is deferred. ASSESSMENT/PLAN: Prostate adenocarcinoma, initial PSA 9.95, biopsy Nicola score 3 + 4 = 7 (grade group 2), clinical stage T1b, N0, M0, stage IIB [T1-T2, N0, M0, PSA <20, GG 2] (AJCC 8th ed.), s/p definitive radiation completed April 2022. 1. Prostate cancer. Patient is doing well stable and low PSA plan to see patient back in 1 year with repeat PSA. 2. Spinal stenosis, lumbar spine. Follows with neurosurgery Signed by: Genoveva Nazario MD cc: Shaikh Dotty [address] [place] [address] [facility] NoteIn person visit Chief complaint: follow up from multi-level lumbar decompressive operations [place] 78 y/o male - had multi-level surgeries - for synovial cyst, subarticular stenosis, etc He had surgery L3-S1 - synovial cyst at one level and lateral recess/foraminal stenosis the other He thinks the surgery helped some thus far His hips feel better His surgery was 11/17/2023 Right side L3 hemilaminectomy and resection of epidural lesion other than neoplasm (synovial cyst) Left side L4 hemilaminotomy and partial resection of the medial and lateral facet with foraminotomy for decompression of lateral recess stenosis (compressing the L5 nerve) Right side L5 hemilaminotomy and partial resection of the medial and lateral facet for decompression of lateral recess stenosis (compressing the S1 nerve) He has had some constipation The pain can be worse with that He takes some hydrocodone He doesn't think it is helping that much He takes tylenol - he takes about 6 extra strength over the day No ibuprofen - he has kidney disease too He takes the tizanidine ROS: As above Past Medical History: Diagnosis Date Adverse effect of anesthesia 2013 Trouble controlling PB - drops very low Coronary artery disease 2012 Dental disease partial denture Diverticulitis Diverticulitis of colon Diverticulosis Hypertension 1996 Kidney disease Myocardial infarction (CMS/HCC) 1996 PONV (postoperative nausea and vomiting) Prostate cancer (CMS/HCC) PVD (peripheral vascular disease) (CMS/HCC) PVD (peripheral vascular disease) (CMS/HCC) left leg stent Stroke (CMS/HCC) 2012 Past Surgical History: Procedure Laterality Date ANGIOPLASTY 2022 BOWEL RESECTION 1985 CAROTID ENDARTERECTOMY 2013 COLON SURGERY 1985 CORONARY STENT PLACEMENT 1996 EYE SURGERY 2021 SHOULDER SURGERY Bilateral 1979 and 1989 SPINAL CORD DECOMPRESSION TRANSURETHRAL RESECTION OF PROSTATE 2021 Current Outpatient Medications on File Prior to Visit Medication Sig Dispense Refill acetaminophen (Tylenol) 325 mg tablet Take 2 tablets (650 mg) by mouth every 8 (eight) hours. Use this three times a day for at least the first 2 weeks post-op to help with pain control - you can buy over the counter 30 tablet 0 amLODIPine (Norvasc) 10 mg tablet Take 1 tablet by mouth in the morning. aspirin 81 mg capsule Take 81 mg by mouth in the morning. Restart on Thursday11/22/2023 30 capsule 0 baclofen (Lioresal) 10 mg tablet Take 10 mg by mouth at bedtime. clopidogrel (Plavix) 75 mg tablet Take 1 tablet (75 mg) by mouth in the morning. Restart on Thursday11/22/2023 30 tablet 0 ergocalciferol (Vitamin D-2) 1.25 MG (05320 Units) capsule Take 1,250 mcg by mouth 1 (one) time per week. gabapentin (Neurontin) 100 mg capsule Take 100 mg by mouth at bedtime. HYDROcodone-acetaminophen ([place]) 7.5-325 mg tablet 1 tablet. nitroglycerin (Nitrostat) 0.4 mg SL tablet Refills(s) 0 omeprazole (PriLOSEC) [address] capsule TAKE 1 CAPSULE BY MOUTH IN THE MORNING BEFORE MEALS DO NOT CRUSH OR CHEW pravastatin (Pravachol) 10 mg tablet Take 10 mg by mouth at bedtime. valsartan (Diovan) 80 mg tablet Take 80 mg by mouth in the morning. varenicline (Chantix) 0.5 mg tablet Take 0.5 mg by mouth in the morning and at bedtime. Take with full glass of water. No current facility-administered medications on file prior to visit. Allergies Allergen Reactions Ezetimibe GI intolerance Other reaction(s): Nausea/vomiting Sojagdc-Und-Uel Reductase Inhibitors Other Muscle/Joint Pain Other Reaction(s): lipitor Exam; Vss Cooperative Nc/at Well developed, well nourished Mood/affect Motor intact Sensory intact Ambulatory CN, speech, cognition intact Wound c/d/I No issue with healing Ambulatory No new films for review today. A/P: 78 y/o male - s/p multi-level lumbar decompressive surgery for stenosis and synovial cyst. He is making appropriate progress in the early post-op period. FU 4-6 with either me or [facility]ellen [facility] Note Occupational Therapy Occupational Therapy Evaluation Patient Name: Yesenia Broussard : 1945 Today's Date: 11/18/2023 Discharge Recommendation: Home with Assist 78 y/o M admitted s/p resection of right L3-L4 synovial cyst, decompression of bilateral L4-L5 lateral recess, and right L5 foraminal decompression on 11/17/23. Initiated session with pt supine in bed. Pt completed supine to sit, sit to stand, functional mobility to hallway, half the length of hallway, to room, to toilet, standing urination at toilet, toilet transfer, to chair, stand to sit, adjustment of socks, and ROM/MMT. Concluded session with pt seated in chair with call light in reach. RN approved pt for OOB activity this date and pt agreeable. Time In: 842 Time Out: 906 General Subjective: Pt pleasant and cooperative Family/Caregiver Present: No Patient Active Problem List Diagnosis Lumbar stenosis with neurogenic claudication Synovial cyst of lumbar facet joint Lumbar radiculopathy Age-related nuclear cataract of left eye Nuclear senile cataract Anxiety Atherosclerotic heart disease of [place] coronary artery without angina pectoris BPH with urinary obstruction Bradycardia BMI 28.0-28.9,adult Chest pressure Chronic low back pain Chronic pain disorder Chronic prostatitis Elevated random blood glucose level Gastroesophageal reflux disease without esophagitis Feeling of incomplete bladder emptying Erectile dysfunction Gross hematuria H/O prostate cancer Carotid artery disease (CMS/HCC) CVA (cerebral vascular accident) (CMS/HCC) Heart disease Hypertension PAD (peripheral artery disease) (CMS/HCC) Peripheral vascular disease (CMS/HCC) History of OR (myocardial infarction) HLD (hyperlipidemia) Intermittent claudication (CMS/HCC) Kidney disease 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) Prostate cancer (CMS/HCC) Nocturia Prostate nodule Recurrent UTI Stage 3 chronic kidney disease (CMS/HCC) Tobacco abuse Smoker Umbilical hernia Unintentional weight change UTI symptoms S/P lumbar laminectomy Past Medical History: Diagnosis Date Adverse effect of anesthesia 2013 Trouble controlling PB - drops very low Coronary artery disease 2012 Dental disease partial denture Diverticulitis Diverticulitis of colon Diverticulosis Hypertension 1996 Kidney disease Myocardial infarction (CMS/HCC) 1996 PONV (postoperative nausea and vomiting) Prostate cancer (CMS/HCC) PVD (peripheral vascular disease) (CMS/HCC) PVD (peripheral vascular disease) (CMS/HCC) left leg stent Stroke (CMS/HCC) 2012 Past Surgical History: Procedure Laterality Date ANGIOPLASTY 2022 BOWEL RESECTION 1986 CAROTID ENDARTERECTOMY 2013 COLON SURGERY 1986 CORONARY STENT PLACEMENT 1996 EYE SURGERY 2021 SHOULDER SURGERY Bilateral 1979 and 1989 SPINAL CORD DECOMPRESSION TRANSURETHRAL RESECTION OF PROSTATE 2021 Precautions Precautions Medical Precautions: IV, no bending lifting or twisting Pain Pain Assessment Pain Assessment: 0-10 Pain Score: 3 Pain Type: Surgical pain Pain Location: Back Pain Orientation: Lower Cognition Cognition Overall Cognitive Status: Within Functional Limits General Assessment General Assessment Hearing: EKWOK Home Living Home Living Type of Home: House Lives With: Spouse Home Adaptive Equipment: None Home Layout: Two level, Bed/bath upstairs (pt reports house is two story story, his entire living space is located on second floor but once he is up the stairs, he is able to stay on second floor) Home Access: Stairs to enter with rails Entrance Stairs-Number of Steps: f/f Bathroom Shower/Tub: Tub/shower unit (pt reports tub is shallow, indicates approximately 12 inch step over) Bathroom Toilet: Standard (pt reports that toilet actually appears lower than standard height) Bathroom Equipment: Grab bars in shower, Hand-held shower, Shower chair with back (pt initially denies having shower chair, later reports he does have one but does not use it - unsure if with back or no back) Prior Level of Function Prior Function Level of [place]: Independent with ADLs and functional transfers, Independent with homemaking with ambulation (drives) Prior Functional Mobility: Independent without device Receives Help From: Family Prior IADLs Static Sitting Balance Static Sitting Balance Static Sitting-Balance Support: No upper extremity supported, Feet supported Static Sitting-Level of Assistance: Independent Dynamic Sitting Balance Dynamic Sitting Balance Dynamic Sitting-Balance Support: No upper extremity supported, Feet supported Dynamic Sitting-Balance: Forward lean, Reaching for objects Dynamic Sitting Balance-Level of Assistance: Independent Static Standing Balance Static Standing Balance Static Standing-Balance Support: No upper extremity supporte (more content not included)...[facility] NotePhysical Therapy Evaluation Patient Name: Yesenia Broussard Today's Date: 11/18/2023 Admit Date: 11/17/2023 Time In: 0843 Time Out: 0910 Total Time: 27 minutes Discharge Recommendation: home History of present illness Yesenia Broussard is a 78 y.o. male referred to acute care PT for evaluation following lumbar laminectomy per Dr Madera om 11/17/2023. Activity: per RN, ok to see patient and advance as tolerated. Patient agreeable to therapy. At end of session patient with call light in reach and resting comfortably in chair. Co Al with OT completed this date to minimize pain and prevent duplication of questions Subjective: Mr Broussard is awake alert and oriented, he notes he had some pain issues over noight but is feeling better this am, he notes he just received a muscle relaxer and it seems to be helping. At the time of eval pt noted central LBP at 2-3/10 PMH/PSH per chart Patient Active Problem List Diagnosis Lumbar stenosis with neurogenic claudication Synovial cyst of lumbar facet joint Lumbar radiculopathy Age-related nuclear cataract of left eye Nuclear senile cataract Anxiety Atherosclerotic heart disease of saxman coronary artery without angina pectoris BPH with urinary obstruction Bradycardia BMI 28.0-28.9,adult Chest pressure Chronic low back pain Chronic pain disorder Chronic prostatitis Elevated random blood glucose level Gastroesophageal reflux disease without esophagitis Feeling of incomplete bladder emptying Erectile dysfunction Gross hematuria H/O prostate cancer Carotid artery disease (CMS/HCC) CVA (cerebral vascular accident) (CMS/HCC) Heart disease Hypertension PAD (peripheral artery disease) (CMS/HCC) Peripheral vascular disease (CMS/HCC) History of OR (myocardial infarction) HLD (hyperlipidemia) Intermittent claudication (CMS/HCC) Kidney disease 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) Prostate cancer (CMS/HCC) Nocturia Prostate nodule Recurrent UTI Stage 3 chronic kidney disease (CMS/HCC) Tobacco abuse Smoker Umbilical hernia Unintentional weight change UTI symptoms S/P lumbar laminectomy Past Medical History: Diagnosis Date Adverse effect of anesthesia 2013 Trouble controlling PB - drops very low Coronary artery disease 2013 Dental disease partial denture Diverticulitis Diverticulitis of colon Diverticulosis Hypertension 1996 Kidney disease Myocardial infarction (CMS/HCC) 1996 PONV (postoperative nausea and vomiting) Prostate cancer (CMS/HCC) PVD (peripheral vascular disease) (CMS/HCC) PVD (peripheral vascular disease) (CMS/HCC) left leg stent Stroke (CMS/HCC) 2012 Past Surgical History: Procedure Laterality Date ANGIOPLASTY 2022 BOWEL RESECTION 1985 CAROTID ENDARTERECTOMY 2013 COLON SURGERY 1985 CORONARY STENT PLACEMENT 1996 EYE SURGERY 2021 SHOULDER SURGERY Bilateral 1979 and 1989 SPINAL CORD DECOMPRESSION TRANSURETHRAL RESECTION OF PROSTATE 2021 Prior level of function Gait: ambulates independent without device. Vision: glasses. Hearing: hard of hearing. ADLs: independent with bathing, dressing, cooking, cleaning. Transportation: drives. Occupation: retired. Home set-up Patient lives with spouse in a 2 story home with FF of steps to enter with ángel handrail. Bedroom location: upstairs. Bathroom location: pt has full flight up to his entire living area, bathroom is on main level of living area Support system . Adaptive Equipment None needed Pain 2-3/10 pain central lbp, no c/o LE pain with mobility . Orientation Patient alert and oriented x4.. Precautions IV, no bending/lifting/twisting. Objective assessment Bed mobility Supine to sit: independent with head of bed flat and no use of bed rails.. Transfers Sit to stand: independent Stand to sit: independent Bed to chair: independent Gait Patient ambulates 500 feet with no assistive device with independent. Gait deviations include: slightly fwd flexed posture Stairs 4 steps with rail independent , step over step . Endurance No issues with household mobility . Balance Sitting static: good Sitting dynamic good Standing static: good Standing dynamic: good Posture Sitting: patient sits with normal posture. Standing:slightly fwd flexed posture in standing ROM UE ROM: nt. LE ROM: wfls noted with mobility , hips not taken to end rom this date due to lumbar surgery Strength Functional strength: see bed mobility and transfer comments above. Core strength: nt. UE strength: nt. LE strength: Good LE stability and function with walking and stairs Ángel ankle DF and eversion strength wnls Sensation nt. Skin Integrity Incision covered with dressing , no excessive drainage noted through dressing Treatment Today: Pt given education about no bending, lifting twisting , pt advised to a (more content not included)...[facility]06-18-2024 Note Patient: Yesenia Broussard Procedure Summary Date: 11/17/23 Room / Location: [facility] OPERATING ROOM 02 / [facility] Operating Room Anesthesia Start: 921 Anesthesia Stop: 1126 Procedures: L3-L4 Synovial Cyst Resection, Left L4-L5 Lateral Recess Decompression, and (Bilateral) L5 Foraminal Decompression (Right) Diagnosis: Synovial cyst of lumbar facet joint Lumbar stenosis with neurogenic claudication (lumbar synovial cyst, lumbar stenosis, neurogenic claudication) Surgeons: Vasile Madera MD Responsible Provider: Augusto Estrada MD Anesthesia Type: general ASA Status: 3 Anesthesia Type: general Vitals Value Taken Time BP 155/98 11/17/23 1202 Temp 36.2 ???C (97.2 ???F) 11/17/23 1125 Pulse 70 11/17/23 1212 Resp 19 11/17/23 1212 SpO2 99 % 11/17/23 1212 Vitals shown include unvalidated device data. Anesthesia Post Evaluation Patient location during evaluation: PACU Patient participation: complete - patient participated Level of consciousness: awake and alert Pain score: 6 Pain management: adequate Cardiovascular status: acceptable Respiratory status: acceptable Hydration status: acceptable Patient is hemodynamically stable and is able to be discharged from PACU per anesthesia protocol. No notable events documented.[facility]06-18-2024 Note Peripheral IV Date/Time: 11/17/2023 10:25 AM Inserted by: French Coffman MD Placement Needle size: 18 G Laterality: left Location: hand Local anesthetic: GA. Site prep: alcohol Technique: anatomical landmarks Attempts: 1[facility] NoteAirway Date/Time: 11/17/2023 9:33 AM Urgency: elective Airway not difficult General Information and Staff Patient location during procedure: OR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 [facility]: Bones: No suspicious bony lesion. Normal appearing [...] 2023 TIME: 12:50 PM documented in this encounterMercy Hospital08-18-2023 Miscellaneous Notes* Telephone Encounter - Julianna Yuan RN - 01/16/2023 8:13 AM EDT Left message on voicemail for patient to call office back or to read PLUQ message. * Telephone Encounter - Julianna Yuan RN - 01/16/2023 8:13 AM EDT Images from the original note were not included. Jose Nichols, DO You 14 hours ago (5:29 PM) [...] calling: self Call patient at: at home [phone] (home) [phone] (cell) Was an appointment scheduled: No Closing statement: Results or non-symptom based questions: [facility], your call will be returned within the next business day. Paul Cat documented in this encounterMercy Hospital08-08-2023 Miscellaneous Notes* Telephone Encounter - Livier Barrera RN - 01/06/2023 8:13 AM EDT Please sign pended new order for Lumbar Spine MRI as it needs to state that it needs to be done with anesthesia. Thank you Livier Barrera RN documented in this encounterMercy Hospital08-07-2023 Miscellaneous Notes* Telephone Encounter - Evelyn Chamberlain RN - 01/05/2023 4:52 PM EDT Spoke to patient's . Explained differences between anxiolysis and full anesthesia. Per patient's , patient needs full anesthesia-will not tolerate procedure with anxiolysis alone. Communicated to office that new order needs to be placed for MRI with anesthesia, and will need to be scheduled at [facility]. documented in this encounterMercy Hospital07-05-2023 Hospital Discharge instructions Patient Education 12/03/2022 [...] to keep your urine pale yellow. ?Take lswn-kjh-ohpjcmw or prescription medicines. ?Eat foods that are high in fiber, such as beans, whole grains, and fresh fruits and vegetables. ?Limit foods that are high in fat and processed sugars, such as fried or sweet foods. General instructions Take ixzl-fey-frxqyqz and prescription medicines only as told by [...] the muscles that help control urination. Take tjyz-awo-dthgtcw and prescription medicines only as told by your health care provider. Contact a health care provider if your symptoms do not improve or get worse. This information is not intended to replace advice given to you by your health care provider. Make sure you discuss any questions you have with your health care provider. Document Revised: 12/21/2020 Document Reviewed: 12/21/2020 [employer] Patient Education 2022 GREE. Follow Up Care 10/28/2022 10:11:31 With:BRITNI ENCINAS, CLAIRE Boswell, URL Address: [address] [place] [address] When:Within 5 Week(s) [facility] 06-23-2023 Miscellaneous Notes* Telephone Encounter - Kadi [...] completed. This can only be completed at [facility] Main & orders must be revised to reflect such. Thanks, Kadi Cotton * Telephone Encounter - Kadi Cotton - 11/18/2022 2:17 PM EDT Per [facility] Neurosurgery, a more recent MRI is required before scheduling the patient to be seen. They are requesting new MRI orders to be placed before completing consult. Kadi Cotton documented in this encounterMercy Hospital06-21-2023 History of Present illness Narrative* Elizabeth Freire APRN.CNP - 11/19/2022 12:22 PM EDT Yesenia [...] and survivorship care plan for prostate cancer. Elizabeth Freire APRN.CNP documented in this encounterMercy Hospital06-21-2023 Evaluation note* Diagnosis Prostate cancer (HCC) Malignant neoplasm of prostate Stage 3 chronic kidney disease, unspecified whether stage 3a or 3b CKD (HCC) documented in this encounter [facility] Note* Nadja Guardado - 11/18/2022 2:34 PM EDT Clinical questionnaires incomplete due to Patient was roomed by provider documented in this encounterMercy Hospital06-20-2023 Nurse Note* Livier Barrera RN - 11/18/2022 1:32 PM EDT AUA 21 Livier Barrera RN documented in this encounterMercy Hospital06-20-2023 History of Present illness Narrative* G Jose Nazario MD - 11/18/2022 1:15 PM EDT Radiation Oncology - Follow Up Note PATIENT NAME: Yesenia Broussard PATIENT DIAGNOSIS: Prostate adenocarcinoma, initial PSA 9.95, biopsy Bastrop score 3 + 4 = 7 (grade [...] ASSESSMENT/PLAN: Prostate adenocarcinoma, initial PSA 9.95, biopsy Bastrop score 3 + 4 = 7 (grade [...] by: Genoveva Nazario MD cc: Shaikh Dotty [address] [place] [address] documented in this encounterMercy Hospital01-06-2023 Miscellaneous Notes* Telephone Encounter - STEPHANIE [...] call back. JENNIE Lange documented in this encounterMercy Hospital01-05-2023 Nurse Note* Kelly Hector - 06/05/2022 12:40 PM EST Back office UA test performed. Results entered in [email or web address] and doctor notified. Kelly Hector MA documented in this encounterMercy Hospital12-15-2022 Miscellaneous Notes* Telephone Encounter - Diane Parada LPN - 05/15/2022 1:51 PM EST Nena, pt's , notified to have Dexter complete the Cipro prescription and have urine rechecked in 2-3 weeks. Call transferred to [facility] to schedule lab appt. Dr. Nazario, please sign pended lab orders. Diane Parada LPN documented in this encounterMercy Hospital12-15-2022 NoteCONSULTATION CONSULTATION DATE: 05/15/2022 HISTORY OF [...] he has a son who lives in [place] with the same symptoms and gained relief after seeing a specialist and having surgery. Medications include Lyrica 75 mg t.i.d., Covington 5/325 t.i.d. and baclofen 10 mg q.h.s. [...] are going to spend three months in [place] with his son in early July and he wishes to see the specialist out there. I told him we would continue to medically manage him, which he does agree to. Patient will call the office for an appointment upon return from [place].[facility] [id number] History of Present illness Narrative* STEPHANIE Lange - 04/30/2022 3:01 PM EST SOCIAL WORK FOLLOW UP NOTE: CANCER CENTER Date of service:04/30/22 TOPICS ADDRESSED: community resources PLAN: Continue follow up as needed Assigned SW listed in Care Team tab: Yes SW completed and faxed a mileage reimbursement log to [facility] for the month of April 2022. JENNIE Lange documented in this encounterMercy Hospital11-23-2022 History of Present illness Narrative* Genoveva Nazario MD - 04/23/2022 12:00 AM EST [facility] Radiation Oncology Department RADIATION ONCOLOGY - COMPLETION NOTE PATIENT: YESENIA BROUSSARD: 1945 DATES OF TREATMENT: 03/18/2022- 04/23/2022 DIAGNOSIS: Prostate adenocarcinoma, initial PSA 9.95, biopsy Bastrop score 3 + 4 = 7 (grade [...] Staff Physician Jose Nazario M.D. / DELIA 23:35 PM documented in this encounterMercy Hospital11-21-2022 History of Present illness Narrative* Genoveva Nazario MD - 04/21/2022 3:23 PM EST genoveva Radiation Oncology - On Treatment Review (OTR) Note PATIENT NAME: Yesenia Broussard PATIENT DIAGNOSIS: Prostate adenocarcinoma, initial PSA 9.95, biopsy Bastrop score 3 + 4 = 7 (grade [...] treatment. Genoveva Nazario MD documented in this encounterMercy Hospital11-14-2022 History of Present illness Narrative* Genoveva [...] outlined. Genoveva Nazario MD documented in this encounterMercy Hospital11-07-2022 History of Present illness Narrative* Genoveva [...] outlined. Genoveva Nazario MD documented in this encounterMercy Hospital10-31-2022 History of Present illness Narrative* Genoveva [...] outlined. Genoveva Nazario MD documented in this encounterMercy Hospital10-31-2022 History of Present illness Narrative* STEPHANIE [...] March 2022. JENNIE Lange documented in this encounterMercy Hospital10-27-2022 Nurse Note* Livier Barrera RN - 03/27/2022 3:10 PM EDT Yesenia Broussard presents in office today for: Lab Draw only . Ordering Provider: Jose Nazario M.D. Test (s) ordered: CBC Method for obtaining blood: Phlebotomy was performed, accessing right antecubital vein. Needle removed intact. Dressing secured. Patient denies discomfort, dizziness, light-headedness or weakness and left the department without assist. Livier Barrera, RN documented in this encounterMercy Hospital10-24-2022 History of Present illness Narrative* Genoveva [...] outlined. Genoveva Nazario MD documented in this encounterMercy Hospital10-18-2022 History of Present illness Narrative* Genoveva [...] First treatment given. Continue radiation as prescribed. Genoveva Nazario MD documented in this encounterMercy Hospital10-18-2022 Miscellaneous Notes* Telephone Encounter - Diane Parada LPN - 03/18/2022 8:31 AM EDT CBC order the second week during radiation is pending your approval. Diane Parada LPN documented in this encounterMercy Hospital10-13-2022 NoteCONSULTATION PROCEDURE DATE: 03/13/2022 PREOPERATIVE DIAGNOSIS: [...] the procedure well with no overt complications.[facility] [id number] NoteCONSULTATION CONSULTATION DATE: 03/13/2022 HISTORY OF PRESENT [...] current medications include Lyrica 75 mg t.i.d., Covington 5/325 t.i. d., baclofen 10 mg q.h.s. [...] and will return in six weeks' time.[facility] [id number] History of Present illness Narrative* STEPHANIE Lange [...] as appropriate. JENNIE Lange documented in this encounterMercy Hospital10-12-2022 History of Present illness Narrative* Genoveva Nazario MD - 03/12/2022 12:00 AM EDT YESENIA BROUSSARD [id number] 03/12/2022 [facility] Department of Radiation Oncology Treatment Planning [...] and [facility]. Electronically Signed Jose Nazario M.D. :57 PM documented in this encounterMercy Hospital10-04-2022 Miscellaneous Notes* Telephone Encounter - STEPHANIE Lange - 03/04/2022 3:28 PM EDT SOCIAL WORK FOLLOW UP NOTE: CANCER CENTER Date of service:03/04/22 Yesenia Warner Broussard is being seen for a follow up social work visit. Today's visit includes: spouse TOPICS ADDRESSED: finances PLAN: Continue follow up as needed and Referral to community resource Assigned KAROLINE listed in Care Team tab: Yes SW received a referral from MEHNAZ Arteaga to contact this Patient's regarding financial concerns with upcoming treatment. KAROLINE called and spoke with Nena (Patient's ). Nena mentioned that she and the Patient live on a fixed income. Primary concern is the cost of radiation treatments. KAROLINE shared that there are options for financial [...] as appropriate. JENNIE Lange documented in this encounterMercy Hospital10-03-2022 History of Present illness Narrative* Genoveva Nazario MD - 03/03/2022 10:42 AM EDT Unable to complete simulation due to anxiety related to claustrophobia. Prescription for Valium given. We will reschedule. documented in this encounterMercy Hospital09-27-2022 Miscellaneous Notes* Telephone Encounter - Criselda [...] Thanks Diane Parada LPN documented in this encounterMercy Hospital09-12-2022 Miscellaneous Notes* Telephone Encounter - Livier [...] Thanks Maddy Waite MA documented in this encounterMercy Hospital08-25-2022 NoteCONSULTATION CONSULTATION DATE: 01/23/2022 HISTORY OF [...] ice. Medications include baclofen 10 mg q.h.s., Covington 5/325 t.i.d., Lyrica 75 mg b.i.d. Patient's [...] followed up in the clinic post procedure.[facility] HospitalSlcwulld03-11-6984 Miscellaneous Notes* Telephone Encounter - Diane Parada [...] advise. Diane Parada LPN documented in this encounterMercy Hospital07-28-2022 NoteCONSULTATION CONSULTATION DATE: 12/26/2021 HISTORY OF [...] His medications include baclofen 10 mg q.h.s., C[place]ton 5/325 t.i.d. and Lyrica 50 mg b.i.d. [...] and he is in agreement to this.[facility] HospitalVqzooopo94-12-8621 Nurse Note* Diane Parada LPN - 12/10/2021 9:20 AM EDT AUA= 10 documented in this encounterMercy Hospital07-12-2022 History of Present illness Narrative* G Jose Nazario MD - 12/10/2021 9:00 AM EDT Radiation Oncology - Prostate Cancer New Patient/Consult Note PATIENT NAME: Yesenia Broussard PATIENT REQUESTING PROVIDER: Dr. Johnston DIAGNOSIS: 76 year old male with prostate adenocarcinoma, initial PSA 9.95, biopsy Bastrop score 3 + 4 = 7 (grade [...] underwent TURP on 06/06/2021. Pathology demonstrating adenocarcinoma, Bastrop 7 (3+4), involving 21 to 30% of submitted tissue. No evidence of intraductal component, or LVI. 6 to 10% percentage of Bastrop pattern 4 Repeat PSA 11/04/2021 3.73. MRI [...] ASSESSMENT/PLAN: Prostate adenocarcinoma, initial PSA 9.95, biopsy Bastrop score 3 + 4 = 7 (grade [...] MD cc: Shaikh Dotty [address] [place] [address] Barbara Warner Johnston [address] [place] [address] documented in this encounterMercy Hospital06-06-2022 Evaluation + Plan note Diagnostic Tests Pending * PSA Total 11/04/21 [facility] 06-06-2022 Hospital Discharge instructions Patient Education 11/04/2021 [...] 05/18/2006 Document Revised: 02/04/2019 Document Reviewed: 04/17/2017 [employer] Patient Education 2020 GREE. 11/04/2021 10:39:39 Benign Prostatic Hyperplasia Benign Prostatic [...] urethra. Follow these instructions at home: Take tbxh-iyk-zuybmbc and prescription medicines only as told by [...] 05/18/2006 Document Revised: 04/12/2019 Document Reviewed: 06/22/2017 [employer] Patient Education 2020 GREE. 11/04/2021 10:39:34 Prostate Cancer Prostate Cancer The [...] who: Are older than age 65. Are -Swazi. Are obese. Have a family history of [...] cells. Follow these instructions at home: Take pvvu-tyg-clrsldl and prescription medicines only as told by [...] 05/18/2006 Document Revised: 04/30/2018 Document Reviewed: 01/26/2017 [employer] Patient Education 2020 GREE. Follow Up Care 07/01/2021 09:43:21 With:PRESTON MAK, Barbara Warner, URL Address: [facility] [address] [place] [address] [phone] When: Unknown Comments:Will schedule MRI of prostate w/wo and Perineal prostate biopsy. [facility] 05-26-2022 Evaluation note* Encounter Date Diagnosis Assessment [...] statins. Monitor LFTs and lipid profile periodically. [facility] Other Evaluation + Plan note Future Appointments Appointment Date:01/06/2023 09:15:00 AM Scheduled Provider:CLAIRE JAMES PA-C Location:[facility] Appointment Type:URO Office Visit [facility] evaluation + Plan note Future Appointments Appointment Date:04/21/2023 08:30:00 AM Scheduled Provider:CLAIRE JAMES PA-C Location:[facility] Appointment Type:URO Office Visit [facility] evaluation + Plan note Future Appointments Appointment Date:07/07/2023 09:00:00 AM Scheduled Provider:CLAIRE JAMES PA-C Location:[facility] Appointment Type:URO Office Visit Diagnostic Tests Pending * Electrolyte Panel 04/21/23 [facility] evaluation + Plan note Future Appointments Appointment Date:07/07/2023 09:00:00 AM Scheduled Provider:CLAIRE JAMES PA-C Location:[facility] Appointment Type:URO Office Visit Diagnostic Tests Pending * [facility] Future Appointments Appointment Date:04/01/2024 10:45:00 AM Scheduled Provider:Barbara JOHNSTON MD Location:[facility] Appointment Type:URO Office Visit Diagnostic Tests Pending * PSA Total 12/31/23 [facility] evaluation note* Diagnosis Malignant neoplasm of prostate (HCC)- [...] [facility] noteNo assessment information availableRegency Hospital [facility] Work Phone: Evaluation note* Diagnosis Hematuria, unspecified type- Primary Malignant neoplasm of prostate (HCC) Malignant neoplasm of prostate documented [facility]* Diagnosis Urinary tract infection without hematuria, site unspecified- Primary documented in this encounter [facility]* Diagnosis History of prostate cancer- Primary Personal history of malignant neoplasm of prostate Spinal arthritis Spondylosis of unspecified site without mention of myelopathy Spinal stenosis of lumbar region, unspecified whether neurogenic claudication present documented [facility]* Diagnosis Spinal stenosis of lumbar region without neurogenic claudication- Primary Spinal stenosis, lumbar region, without neurogenic claudication [facility] Diagnosis Spinal stenosis of lumbar region, unspecified whether neurogenic claudication present- Primary documented [facility]* Diagnosis Spinal stenosis, lumbar region with neurogenic claudication- Primary Foraminal stenosis of lumbar region Spinal stenosis, lumbar region, without neurogenic claudication Peripheral artery disease (HCC) Peripheral vascular disease, unspecified Prostate cancer (HCC) Malignant neoplasm of prostate [facility] InformationNortEn[facility] Pre[facility] Other Evaluation note* Diagnosis Spinal stenosis, lumbar region with neurogenic claudication- Primary Foraminal stenosis of lumbar region Spinal stenosis, lumbar region, without neurogenic claudication documented in this encounter [facility] note* Diagnosis Spondylolisthesis of lumbar region- Primary Acquired spondylolisthesis documented in this encounter [facility] note* Diagnosis Hypertension, unspecified type Mixed hyperlipidemia Bilateral carotid artery disease, unspecified type ([facility]) History of OR (myocardial infarction) Old myocardial infarction BMI 28.0-28.9,adult ASHD (arteriosclerotic heart disease) Coronary atherosclerosis of unspecified type of vessel, saxman or graft PVD (peripheral vascular disease) ([facility]) Unspecified peripheral vascular disease Smoker Tobacco use disorder Chest pain, unspecified type documented in this encounter [facility] Work Phone: Evaluation note* Diagnosis Onset Date Resolution Status Current every day smoker acu te PAD (peripheral artery disease) [facility] Work Phone: Hisogby general Narrative - Reported* Type Description Date [...] History PROSTATE SURGERY Hospitalization History SEE ABOVE [facility]ociety Other Hisvzor general Narrative - Reported* Type Description Date [...] ANGIOPLASTY LT 03/2023 Hospitalization History SEE ABOVE [facility] Other Hospital course Narrative No data available for this section [facility] Discharge instructions No data available for this section [facility] No data available for this section [facility] HospitalReason for referral (narrative)* Consultation (Routine) - Authorized Specialty Diagnoses / Procedures Referred By Contac t Referred To Contact Cardiology Diagnoses Hypertension, unspecified type Mixed hyperlipidemia Bilateral carotid artery disease, unspecified type (CMS/HCC) Procedures Follow Up In Cardiology Chaim Grayson, DO [address] [facility] 2, [address] [address] Chaim Grayson, DO [address] [place] [address] Referral ID Status Reason Start Date Expiration Date V isits Requested Visits Authorized [id number] Authorized 06/04/2023 06/03/2024 1 1 * Cardiovascular (Routine) - Pending Review Specialty Diagnoses / Procedures Referred By Contac t Referred To Contact Diagnoses Mixed hyperlipidemia Bilateral carotid artery disease, unspecified type (CMS/HCC) Procedures ECG 12 Lead Chaim Grayson DO [address] [facility] 2, [address] [address] Referral ID Status Reason Start Date Expiration Date V isits Requested Visits Authorized [id number] Pending Review 06/04/2023 06/03/2024 1 1 * Consultation (Routine) - Authorized Specialty Diagnoses / Procedures Referred By Contac t Referred To Contact Cardiology Diagnoses Hypertension, unspecified type Bilateral carotid artery disease, unspecified type (CMS/HCC) Procedures Follow Up In Cardiology Chaim Grayson, [address] [facility] 2, [address] [address] Referral ID Status Reason Start Date Expiration Date V isits Requested Visits Authorized [id number] Authorized 06/04/2023 06/03/2024 1 1 * Cardiac Stress Testing (Routine) - Pending Review Specialty Diagnoses / Procedures Referred By Renata staton Referred To Contact Radiology Diagnoses Hypertension, unspecified type Bilateral carotid artery disease, unspecified type (CMS/HCC) Chest pressure Procedures Nuclear Stress Test CHG MYOCARDIAL SPECT MULTIPLE STUDIES CHG MYOCARDIAL SPECT SINGLE STUDY AT REST OR STRESS Chaim Grayson DO [address] [facility] [address], [address] [address] Referral ID Status Reason Start Date Expiration Date V isits Requested Visits Authorized [id number] Pending Review 06/04/2023 06/03/2024 5 5 [facility] Work Phone: Summary Purpose Family History No Family History Records Found Relationship Condition Age at Onset Recorded Date/T yudi father Parkinson's disease Unknown Diabetes mellitus Unknown Not Specified Heart disease Unknown Relationship Condition Age at Onset Recorded Date/T yudi father Parkinson's disease Unknown Diabetes mellitus Unknown Not Specified Heart disease Unknown father Unknown Parkinson's disease Unknown Not Specified Hypertension Unknown Heart disease Unknown Family history of mental disorder Unknown Unknown natural son Heart disease Unknown Advance Directives No Advanced [...] N18.30 I12.9 N25.81 E78.5 PVD i70.213 R00.1 Chief Complaint Amb Documentation I25.10 I10 N18.31 E78.2 R73.09 R68.89 Z85.46 Chief Complaint Amb Documentation I25.10 I10 N18.31 E78.2 R73.09 R68.89 Z85.46 6 MO F/U; PERI'S BOTH LEGS 11A Reason for Visit Current every day juliette riddle PAD (peripheral artery disease) Reason for Referral Specialty Diagnoses / Procedures Referred By Contac t Referred To Contact Diagnoses Bilateral carotid artery disease, unspecified type ([facility]) History of OR (myocardial infarction) ASHD (arteriosclerotic heart disease) PVD (peripheral vascular disease) ([facility]) Chest pain, unspecified type Procedures ECG 12 Lead Chaim Grayson [address], [place] [id number] Referral ID Status Reason Start Date Expiration Date V isits Requested Visits Authorized [id number] Authorized 08/18/2023 08/17/2024 1 1 Specialty Diagnoses / Procedures Referred By Contac t Referred To Contact Cardiology Diagnoses Bilateral carotid artery disease, unspecified type ([facility]) Procedures Follow Up In Cardiology Chaim Grayson DO [address] [place] [address] 2, [address] [address] Chaim Grayson, [address] [place] [address] 2, [address] [address] Referral ID Status Reason Start Date Expiration Date V isits Requested Visits Authorized [id number] Authorized 08/18/2023 08/17/2024 1 1 Specialty Diagnoses / Procedures Referred By Contac t Referred To Contact Spine Bad Axe Diagnoses Spondylolisthesis of lumbar region Procedures CONSULT TO [facility] ([facility]IN) OFFICE/OUTPATIENT [facility] 60 MINUTES Kodi Reynolds MD [address] [place] [address] Referral ID Status Reason Start Date Expiration Date Visits Requested Visits Authorized [id number] Pending Review PCP Requested Referral 06/12/2023 06/11/2024 1 1 Specialty Diagnoses / Procedures Referred By Contac t Referred To Contact Diagnoses Spinal stenosis, lumbar region with neurogenic claudication Foraminal stenosis of lumbar region Procedures CONSULT TO SPINE SURGERY OFFICE/OUTPATIENT [facility] 60-74 MINUTES Jose Nichols DO [address] [place] [address] Referral ID Status Reason Start Date Expiration Date Visits Requested Visits Authorized [id number] Pending Review PCP Requested Referral 05/18/2024 1 1 Specialty Diagnoses / Procedures Referred By Contac t Referred To Contact MR IMAGING Diagnoses Spinal stenosis of lumbar region, unspecified whether neurogenic claudication present Procedures MRI LUMBAR SPINE WO/W IVCON MRI SPINAL CANAL LUMBAR W/O & W/CONTR MATRL Genoveva Nazario MD [address] [place] [address] Mr Imaging Referral ID Status Reason Start Date Expiration Date Visits Requested Visits Authorized [id number] Pending Review Auto-Generat ed Referral 11/19/2022 12/19/2023 1 1 Specialty Diagnoses / Procedures Referred By Contac t Referred To Contact Neurosurgery Diagnoses Spinal arthritis Procedures CONSULT TO NEUROSURGERY OFFICE/OUTPATIENT [facility] 60-74 MINUTES Genoveva Nazario MD [address] [place] [address] Referral ID Status Reason Start Date Expiration Date Visits Requested Visits Authorized [id number] Pending Review PCP Requested Referral 11/18/2022 11/18/2023 [...] section and content) DATE CREATED AUTHOR 06/12/2021 [facility] DATE CREATED AUTHOR AUTHOR'S ORGANIZ ATION 03/27/2022 [facility] DATE CREATED AUTHOR AUTHOR'S ORGANIZ ATION 11/07/2022 [facility] DATE CREATED AUTHOR AUTHOR'S ORGANIZ ATION 01/06/2023 [facility] DATE CREATED AUTHOR AUTHOR'S ORGANIZ ATION 06/16/2023 [facility] DATE CREATED AUTHOR AUTHOR'S ORGANIZ ATION 06/29/2023 [facility] DATE CREATED AUTHOR AUTHOR'S ORGANIZ ATION 08/17/2023 [facility] DATE CREATED AUTHOR AUTHOR'S ORGANIZ ATION 09/28/2023 [facility] EPIC DATE CREATED AUTHOR AUTHOR'S ORGANIZ ATION 10/05/2023 [facility] DATE CREATED AUTHOR AUTHOR'S ORGANIZ ATION 10/21/2023 [facility] DATE CREATED AUTHOR AUTHOR'S ORGANIZ ATION 10/27/2023 [facility] DATE CREATED AUTHOR AUTHOR'S ORGANIZ ATION 12/24/2023 [facility] DATE CREATED AUTHOR AUTHOR'S ORGANIZ ATION 01/14/2024 [facility] REASON FOR VISIT (unrecogniz ed section and [...] Pain Specialty Diagnoses / Procedures Referred By Contdemario t Referred To Contact Neurosurgery Diagnoses Spinal arthritis Procedures CONSULT TO NEUROSURGERY OFFICE/OUTPATIENT NEW HIGH MDM 60-74 MINUTES Genoveva Nazario MD [address] [place] [address] [place] [address] Referral ID Status Reason Start Date Expiration Date Visits Requested Visits Authorized [id number] Pending Review PCP Requested Referral 11/18/2022 11/18/2023 1 1 Reason Comments Appointment Confirmation Reason Comments Establish Care Fawwad pvd HTN abn e kg Specialty Diagnoses / Procedures Referred By Contac t Referred To Contact Diagnoses Mixed hyperlipidemia Bilateral carotid artery disease, unspecified type (CMS/HCC) Procedures ECG 12 Lead Chaim Grayson, [address] [place] [address] 2, [address] [address] Referral ID Status Reason Start Date Expiration Date V isits Requested Visits Authorized [id number] Pending Review 06/04/2023 06/03/2024 1 1 Reason Comments Low Back Pain New Patient Evaluation New Patient Specialty Diagnoses / Procedures Referred By Contac t Referred To Contact Radiology Diagnoses Hypertension, unspecified type Bilateral carotid artery disease, unspecified type (CMS/HCC) Chest pressure Procedures Nuclear Stress Test CHG MYOCARDIAL SPECT MULTIPLE STUDIES CHG MYOCARDIAL SPECT SINGLE STUDY AT REST OR STRESS Chaim Grayson, [address], [place] [id number] Referral ID Status Reason Start Date Expiration Date V isits Requested Visits Authorized [id number] Authorized 06/04/2023 06/03/2024 5 5 Reason Comments Follow-up 1yr Specialty Diagnoses / Procedures Referred By Contac t Referred To Contact Cardiology Diagnoses Hypertension, unspecified type Mixed hyperlipidemia Bilateral carotid artery disease, unspecified type (CMS/HCC) Procedures Follow Up In Cardiology Chaim Grayson, [address] [place] [address] 2, [place] [id number] Chaim Grayson, [address], [address] [address] Referral ID Status Reason Start Date Expiration Date V isits Requested Visits Authorized [id number] Authorized 06/04/2023 06/03/2024 1 1 Reason Comments Prostate Cancer Source Comments (unrecognize d section and content) In the event this informatio n is protected by the Federal Confidentiality of Alcohol and Drug Abuse Patient Records regulations: The Federal rules restrict any use of the information to criminally investigate or prosecute any alcohol or drug abuse patient.[facility] the event this information is protected by the Federal Confidentiality of Alcohol and Drug Abuse Patient Records regulations: The Federal rules restrict any use of the information to criminally investigate or prosecute any alcohol or drug abuse patient.[facility] HospitalIn the event this information is protected by the Federal Confidentiality of Alcohol and Drug Abuse Patient Records regulations: The Federal rules restrict any use of the information to criminally investigate or prosecute any alcohol or drug abuse patient.[facility] HospitalIn the event this information is protected by the Federal Confidentiality of Alcohol and Drug Abuse Patient Records regulations: The Federal rules restrict any use of the information to criminally investigate or prosecute any alcohol or drug abuse patient.[facility] HospitalIn the event this information is protected by the Federal Confidentiality of Alcohol and Drug Abuse Patient Records regulations: The Federal rules restrict any use of the information to criminally investigate or prosecute any alcohol or drug abuse patient.[facility] HospitalIn the event this information is protected by the Federal Confidentiality of Alcohol and Drug Abuse Patient Records regulations: The Federal rules restrict any use of the information to criminally investigate or prosecute any alcohol or drug abuse patient.[facility] HospitalIn the event this information is protected by the Federal Confidentiality of Alcohol and Drug Abuse Patient Records regulations: The Federal rules restrict any use of the information to criminally investigate or prosecute any alcohol or drug abuse patient.[facility] HospitalIn the event this information is protected by the Federal Confidentiality of Alcohol and Drug Abuse Patient Records regulations: The Federal rules restrict any use of the information to criminally investigate or prosecute any alcohol or drug abuse patient.[facility] HospitalIn the event this information is protected by the Federal Confidentiality of Alcohol and Drug Abuse Patient Records regulations: The Federal rules restrict any use of the information to criminally investigate or prosecute any alcohol or drug abuse patient.[facility] HospitalIn the event this information is protected by the Federal Confidentiality of Alcohol and Drug Abuse Patient Records regulations: The Federal rules restrict any use of the information to criminally investigate or prosecute any alcohol or drug abuse patient.[facility] HospitalIn the event this information is protected by the Federal Confidentiality of Alcohol and Drug Abuse Patient Records regulations: The Federal rules restrict any use of the information to criminally investigate or prosecute any alcohol or drug abuse patient.[facility] HospitalIn the event this information is protected by the Federal Confidentiality of Alcohol and Drug Abuse Patient Records regulations: The Federal rules restrict any use of the information to criminally investigate or prosecute any alcohol or drug abuse patient.[facility] HospitalIn the event this information is protected by the Federal Confidentiality of Alcohol and Drug Abuse Patient Records regulations: The Federal rules restrict any use of the information to criminally investigate or prosecute any alcohol or drug abuse patient.[facility] HospitalIn the event this information is protected by the Federal Confidentiality of Alcohol and Drug Abuse Patient Records regulations: The Federal rules restrict any use of the information to criminally investigate or prosecute any alcohol or drug abuse patient.[facility] HospitalIn the event this information is protected by the Federal Confidentiality of Alcohol and Drug Abuse Patient Records regulations: The Federal rules restrict any use of the information to criminally investigate or prosecute any alcohol or drug abuse patient.[facility] HospitalIn the event this information is protected by the Federal Confidentiality of Alcohol and Drug Abuse Patient Records regulations: The Federal rules restrict any use of the information to criminally investigate or prosecute any alcohol or drug abuse patient.[facility] HospitalIn the event this information is protected by the Federal Confidentiality of Alcohol and Drug Abuse Patient Records regulations: The Federal rules restrict any use of the information to criminally investigate or prosecute any alcohol or drug abuse patient.[facility] HospitalIn the event this information is protected by the Federal Confidentiality of Alcohol and Drug Abuse Patient Records regulations: The Federal rules restrict any use of the information to criminally investigate or prosecute any alcohol or drug abuse patient.[facility] HospitalIn the event this information is protected by the Federal Confidentiality of Alcohol and Drug Abuse Patient Records regulations: The Federal rules restrict any use of the information to criminally investigate or prosecute any alcohol or drug abuse patient.[facility] HospitalIn the event this information is protected by the Federal Confidentiality of Alcohol and Drug Abuse Patient Records regulations: The Federal rules restrict any use of the information to criminally investigate or prosecute any alcohol or drug abuse patient.[facility] HospitalIn the event this information is protected by the Federal Confidentiality of Alcohol and Drug Abuse Patient Records regulations: The Federal rules restrict any use of the information to criminally investigate or prosecute any alcohol or drug abuse patient.[facility] HospitalIn the event this information is protected by the Federal Confidentiality of Alcohol and Drug Abuse Patient Records regulations: The Federal rules restrict any use of the information to criminally investigate or prosecute any alcohol or drug abuse patient.[facility] HospitalIn the event this information is protected by the Federal Confidentiality of Alcohol and Drug Abuse Patient Records regulations: The Federal rules restrict any use of the information to criminally investigate or prosecute any alcohol or drug abuse patient.[facility] HospitalIn the event this information is protected by the Federal Confidentiality of Alcohol and Drug Abuse Patient Records regulations: The Federal rules restrict any use of the information to criminally investigate or prosecute any alcohol or drug abuse patient.[facility] HospitalIn the event this information is protected by the Federal Confidentiality of Alcohol and Drug Abuse Patient Records regulations: The Federal rules restrict any use of the information to criminally investigate or prosecute any alcohol or drug abuse patient.[facility] HospitalIn the event this information is protected by the Federal Confidentiality of Alcohol and Drug Abuse Patient Records regulations: The Federal rules restrict any use of the information to criminally investigate or prosecute any alcohol or drug abuse patient.[facility] HospitalIn the event this information is protected by the Federal Confidentiality of Alcohol and Drug Abuse Patient Records regulations: The Federal rules restrict any use of the information to criminally investigate or prosecute any alcohol or drug abuse patient.[facility] HospitalIn the event this information is protected by the Federal Confidentiality of Alcohol and Drug Abuse Patient Records regulations: The Federal rules restrict any use of the information to criminally investigate or prosecute any alcohol or drug abuse patient.[facility] HospitalIn the event this information is protected by the Federal Confidentiality of Alcohol and Drug Abuse Patient Records regulations: The Federal rules restrict any use of the information to criminally investigate or prosecute any alcohol or drug abuse patient.[facility] HospitalIn the event this information is protected by the Federal Confidentiality of Alcohol and Drug Abuse Patient Records regulations: The Federal rules restrict any use of the information to criminally investigate or prosecute any alcohol or drug abuse patient.[facility] HospitalIn the event this information is protected by the Federal Confidentiality of Alcohol and Drug Abuse Patient Records regulations: The Federal rules restrict any use of the information to criminally investigate or prosecute any alcohol or drug abuse patient.[facility] HospitalIn the event this information is protected by the Federal Confidentiality of Alcohol and Drug Abuse Patient Records regulations: The Federal rules restrict any use of the information to criminally investigate or prosecute any alcohol or drug abuse patient.[facility] HospitalIn the event this information is protected by the Federal Confidentiality of Alcohol and Drug Abuse Patient Records regulations: The Federal rules restrict any use of the information to criminally investigate or prosecute any alcohol or drug abuse patient.[facility] HospitalIn the event this information is protected by the Federal Confidentiality of Alcohol and Drug Abuse Patient Records regulations: The Federal rules restrict any use of the information to criminally investigate or prosecute any alcohol or drug abuse patient.[facility] Care Teams (unrecognized sec tion and content) Team Status: Active Member Role Status Dates Shaikh Dotty MD Primary Care Provider Active Team Status: Active Member Role Status Dates Shaikh Dotty MD Primary Care Provider Active Start: September 15, 2023 Nicki Sierra CMA Attending Provider Active St art: September 15, 2023 Team Status: Inactive Member Role Status Dates Shaikh Dotty MD Primary Care Provide r, Attending Provider Active Start: October 01, 2023 End: October 01, 2023 Barbara Johnston MD Referring Provider Active St art: October 01, 2023 End: October 01, 2023 Team Status: Inactive Member Role Status Dates Shaikh Dotty MD Primary Care Provider, Other Provid er Active Jennie Ferrera NP-C Attending Provider Active Proposal Editor Relationship Specialty Start Date End Date Shaikh Storm MD [address] [place] [address] PCP - General Primary Care 12/06/21 Barbara Johnston MD [address] [place] [address] Referring Urology 12/06/21 Proposal Editor Relationship Specialty Start Date End Date Shaikh Storm MD [address] [place] [address] PCP - General Primary Care 12/06/21 Barbara Johnston MD [address] [place] [address] Referring Urology 12/06/21 Proposal Editor Relationship Specialty Start Date End Date Shaikh Storm MD [address] [place] [address] PCP - General Primary Care 12/06/21 Barbara Johnston MD [address] [place] [address] Referring Urology 12/06/21 Proposal Editor Relationship Specialty Start Date End Date Shaikh Storm MD [address] [place] [address] PCP - General Primary Care 12/06/21 Barbara Johnston MD [address] [place] [address] Referring Urology 12/06/21 Proposal Editor Relationship Specialty Start Date End Date Shaikh Storm MD [address] [place] [address] PCP - General Primary Care 12/06/21 Barbara Johnston MD [address] [place] [address] Referring Urology 12/06/21 Constance Durand, [facility] Procurement Officer 03/04/22 Proposal Editor Relationship Specialty Start Date End Date Shaikh Storm MD [address] [place] [place] [address] PCP - General Primary Care 12/06/21 Barbara Johnston MD [address] [place] [address] Referring Urology 12/06/21 Constance Durand, [facility] Procurement Officer 03/04/22 Proposal Editor Relationship Specialty Start Date End Date Shaikh Storm MD [address] [place] [address] PCP - General Primary Care 12/06/21 Barbara Johnston MD [address] [place] [address] Referring Urology 12/06/21 Constance Durand, [facility] Procurement Officer 03/04/22 Proposal Editor Relationship Specialty Start Date End Date Shaikh Storm MD [address] [place] [address] PCP - General Primary Care 12/06/21 Barbara Johnston MD [address] [place] [address] Referring Urology 12/06/21 Constance Durand, [facility] Procurement Officer 03/04/22 Proposal Editor Relationship Specialty Start Date End Date Shaikh Storm MD [address] [place] [place] [address] PCP - General Primary Care 12/06/21 Barbara Johnston MD [address] [place] [address] Referring Urology 12/06/21 Constance Durand, [facility] Procurement Officer 03/04/22 Proposal Editor Relationship Specialty Start Date End Date Shaikh Storm MD [address] [place] [address] PCP - General Primary Care 12/06/21 Barbara Johnston MD [address] [place] [address] Referring Urology 12/06/21 Constance Durand, [facility] Procurement Officer 03/04/22 Proposal Editor Relationship Specialty Start Date End Date Shaikh Storm MD [address] [place] [address] PCP - General Primary Care 12/06/21 Barbara Johnston MD [address] [place] [address] Referring Urology 12/06/21 Constance Durand, [facility] Procurement Officer 03/04/22 Proposal Editor Relationship Specialty Start Date End Date Shaikh Storm MD [address] [address] PCP - General Primary Care 12/06/21 Barbara Johnston MD [address] [place] [address] Referring Urology 12/06/21 Constance Durand, [facility] Procurement Officer 03/04/22 Proposal Editor Relationship Specialty Start Date End Date Shaikh Storm MD [address] [address] PCP - General Primary Care 12/06/21 Barbara Johnston MD [address] [place] [address] Referring Urology 12/06/21 Constance Durand, [facility] Procurement Officer 03/04/22 Proposal Editor Relationship Specialty Start Date End Date Shaikh Storm MD [address] [address] PCP - General Primary Care 12/06/21 Barbara Johnston MD [address] [place] [address] Referring Urology 12/06/21 Constance Durand, [facility] Procurement Officer 03/04/22 Proposal Editor Relationship Specialty Start Date End Date Shaikh Storm MD [address] [address] PCP - General Primary Care 12/06/21 Barbara Johnston MD [address] [place] [address] Referring Urology 12/06/21 Constance Durand [facility] Procurement Officer 03/04/22 Team Status: Inactive Member Role Status Dates Shaikh Dotty MD Primary Care Provider Active Zeinab Justice MD Attending Provider Active Proposal Editor Relationship Specialty Start Date End Date Shaikh Storm MD [address] [place] [address] PCP - General Primary Care 12/06/21 Barbara Johnston MD [address] [place] [address] Referring Urology 12/06/21 Constance Durand LSW Procurement Officer 03/04/22 Team Status: Inactive Member Role Status Dates Shaikh Dotty MD Primary Care Provider Active Lyla Nazario MD Attending Provider Active Proposal Editor Relationship Specialty Start Date End Date Shaikh Storm MD [address] [place] [address] PCP - General Primary Care 12/06/21 Barbara Johnston MD [address] [place] [address] Referring Urology 12/06/21 Constance Durand LSW Procurement Officer 03/04/22 Proposal Editor Relationship Specialty Start Date End Date Shaikh Storm MD [address] [place] [address] PCP - General Primary Care 12/06/21 Barbara Johnston MD [address] [place] [address] Referring Urology 12/06/21 Constance Durand LSW Procurement Officer 03/04/22 Proposal Editor Relationship Specialty Start Date End Date Shaikh Storm MD [address] [place] [address] PCP - General Primary Care 12/06/21 Barbara Johnston MD [address] [place] [address] Referring Urology 12/06/21 Constance Durand LSW Procurement Officer 03/04/22 Proposal Editor Relationship Specialty Start Date End Date Shaikh Storm MD [address] [place] [address] PCP - General Primary Care 12/06/21 Barbara Johnston MD [address] [place] [address] Referring Urology 12/06/21 Constance Durand, R[employer]D ENGINEER Procurement Officer 03/04/22 Proposal Editor Relationship Specialty Start Date End Date Shaikh Storm MD [address] [place] [address] PCP - General Primary Care 12/06/21 Barbara Johnston MD [address] [place] [address] Referring Urology 12/06/21 Constance Durand, R&D ENGINEER Procurement Officer 03/04/22 Proposal Editor Relationship Specialty Start Date End Date Shaikh Storm MD [address] [place] [address] PCP - General Primary Care 12/06/21 Barbara Johnston MD [address] [place] [address] Referring Urology 12/06/21 Constance Durand LSW Procurement Officer 03/04/22 Proposal Editor Relationship Specialty Start Date End Date Shaikh Storm MD [address] [address] PCP - General Primary Care 12/06/21 Barbara Johnston MD [address] [place] [address] Referring Urology 12/06/21 Constance Durand, R&D ENGINEER Procurement Officer 03/04/22 Proposal Editor Relationship Specialty Start Date End Date Shaikh Storm MD [address] [place] [address] PCP - General Primary Care 12/06/21 Barbara Johnston MD [address] [place] [address] Referring Urology 12/06/21 Constance Durand LSW Procurement Officer 03/04/22 Proposal Editor Relationship Specialty Start Date End Date Shaikh Storm MD [address] [place] [address] PCP - General Primary Care 12/06/21 Barbara Johnston MD [address] [place] [address] Referring Urology 12/06/21 Constance Durand LSW Procurement Officer 03/04/22 Team Status: Inactive Member Role Status Dates Shaikh Dotty MD Primary Care Provider Active Temporary Anesthesiologist Attending Provider Active Proposal Editor Relationship Specialty Start Date End Date Shaikh Storm MD [address] [place] [address] PCP - General Primary Care 12/06/21 Barbara Johnston MD [address] [place] [address] Referring Urology 12/06/21 Contsance Durand LSW Procurement Officer 03/04/22 Team Status: Inactive Member Role Status Dates Shaikh Dotty MD Primary Care Provider Active Jose Martin Mchugh MD Attending Provider Active Team Status: Inactive Member Role Status Dates Shaikh Dotty MD Primary Care Provider Active Theo Thakkar MD Attending Provider Active Proposal Editor Relationship Specialty Start Date End Date Shaikh Storm MD [address] [place] [address] PCP - General Primary Care 12/06/21 Barbara Johnston MD [address] [place] [address] Referring Urology 12/06/21 Constance Durand, R&D ENGINEER Procurement Officer 03/04/22 Proposal Editor Relationship Specialty Start Date End Date Shaikh Storm MD [address] [place] [address] PCP - General Primary Care 12/06/21 Barbara Johnston MD [address] [place] [address] Referring Urology 12/06/21 Constance Durand, R&D ENGINEER Procurement Officer 03/04/22 Team Status: Inactive Member Role Status Dates Shaikh Dotty MD Primary Care Provider, Attending Pr ovider Active Proposal Editor Relationship Specialty Start Date End Date Shaikh Storm MD [address] [place] [address] PCP - General Internal Medicine 06/04/23 Proposal Editor Relationship Specialty Start Date End Date Shaikh Storm MD [address] [place] [address] PCP - General Primary Care 12/06/21 Barbara Johnston MD [address] [place] [address] Referring Urology 12/06/21 Constance Durand, R&D ENGINEER Procurement Officer 03/04/22 Proposal Editor Relationship Specialty Start Date End Date Shaikh tSorm MD [address] [place] [address] PCP - General Internal Medicine 06/04/23 Proposal Editor Relationship Specialty Start Date End Date Shaikh Storm MD [address] [place] [address] PCP - General Internal Medicine 06/04/23 Proposal Editor Relationship Specialty Start Date End Date Shaikh Storm MD PCP - General Internal Medicine 06/04/23 Team Status: Inactive Member Role Status Dates Shaikh Dotty MD Primary Care Provider Active Start: October 15, 2023 End: October 15, 2023 Bonnie Tan NP-C Attending Provider Active Start: October 15, 2023 End: October 15, 2023 Proposal Editor Relationship Specialty Start Date End Date Shaikh Storm MD [address] [place] [address] PCP - General Primary Care 12/06/21 Barbara Johnston MD [address] [place] [address] Referring Urology 12/06/21 Constance Durand LSW Procurement Officer 03/04/22 Goals (unrecognized section and content) Goals may [...] BE BASED ON THE PRIMARY CLINICAL RECORDS. [facility]. provides no warranty or guarantee of the accuracy or completeness of information in this document.
--- NOTE | 2024-01-14 11:39 | P.CN_ITS ---
Consult Note: HPI Data of Consult Patient: known to practice within the last 3 years Requesting Physician: Jennie Ferrera NP Primary Care Provider: Shaikh Dotty MD Consult Narrative Reason for consult: f/u Narrative: Dexter Broussard a pleasant 78 year old male presents for evaluation and management of chronic low back pain. Patient reporting pain today 1/10 up to 5/10, does increase with activity, decreased with medications and sitting. Patient reports norco 7.5-325 TID PRN provides moderate pain relief without side effects he has been trying to wean down but is having side effects, continues to find benefit from baclofen 10mg hs and gabapentin 100mg . Patient cannot take NSAIDs as he is on plavix, has failed to benefit from tylenol and PT in the past. Patient underwent lumbar surgery 11/16 with significant improvement ongoing, will f/u with surgeon 6 months post op. Patient would like to discuss weaning off of norco. cc:: CC: Jennie Ferrera NP Review of Systems ROS Status of ROS 10 or more systems reviewed and unremark able except as noted in history and below Musculoskeletal Reports: back pain PFSH PFSH Medical History (Updated 08/19/23 @ 11:19 by Jennie Ferrera NP) History of stress test ?Z92.89 - Personal history of other medical treatment (ICD-10) Osteoarthritis ?M19.90 - Unspecified osteoarthritis, unspecified site (ICD-10) Hearing deficit ?H91.90 - Unspecified hearing loss, unspecified ear (ICD-10) Stroke ?I63.9 - Cerebral infarction, unspecified (ICD-10) Prostate cancer ?C61 - Malignant neoplasm of prostate (ICD-10) Enlarged prostate ?N40.0 - Benign prostatic hyperplasia without lower urinary tract symptoms (ICD-10) Kidney disease ?N28.9 - Disorder of kidney and ureter, unspecified (ICD-10) Surgical History H/O endarterectomy ?Z98.890 - Other specified postprocedural states (ICD-10) History of bowel resection ?Z90.49 - Acquired absence of other specified parts of digestive tract (ICD- 10) History of exploratory laparotomy ?Z98.890 - Other specified postprocedural states (ICD-10) History of lumbar discectomy ?Z98.890 - Other specified postprocedural states (ICD-10) History of heart artery stent ?Z95.5 - Presence of coronary angioplasty implant and graft (ICD-10) Meds Home Medications and Allergies Home Medications ?Medication ?Instructions ?Recorded ?Confirmed ?Type amlodipine 10 mg tablet 10 mg PO DAILY 02/05/23 08/10/23 History aspirin 81 mg capsule 81 mg PO DAILY 02/05/23 08/10/23 History baclofen 10 mg tablet 10 mg PO DAILY 02/05/23 08/10/23 History ezetimibe 10 mg tablet 10 mg PO DAILY 02/05/23 08/10/23 History gabapentin 100 mg capsule 100 mg PO DAILY #30 caps 02/05/23 08/10/23 Rx hydrocodone 7.5 mg-acetaminophen 1 tab PO TID PRN pain #90 tabs 03/09/23 08/10/23 Rx 325 mg tablet VITAMIN D 50,000U 07/30/23 History clopidogrel 75 mg tablet (Plavix) 75 mg PO DAILY 07/30/23 08/10/23 History desmopressin 0.1 mg tablet 0.1 mg PO QDAY 07/30/23 08/10/23 History lisinopril 20 mg tablet 20 mg PO DAILY 07/30/23 08/10/23 History pravastatin 40 mg tablet 40 mg PO DAILY 07/30/23 08/10/23 History hydrocodone 7.5 mg-acetaminophen 1 tab PO TID PRN pain #90 tabs 08/07/23 08/10/23 Rx 325 mg tablet hydrocodone 7.5 mg-acetaminophen 1 tab PO TID PRN pain #90 tabs 09/08/23 Rx 325 mg tablet hydrocodone 7.5 mg-acetaminophen 1 tab PO TID PRN pain #90 tabs 10/08/23 Rx 325 mg tablet hydrocodone 7.5 mg-acetaminophen 1 tab PO TID PRN pain #90 tabs 11/11/23 Rx 325 mg tablet Allergies Allergy/AdvReac Type Severity Reaction Status Date / Time No Known Drug Allergies Allergy Verified 08/10/23 11:17 Exam Constitutional Documenting provider has reviewed patient's vital signs: yes Common normals: no apparent distress, oriented x3, healthy appearing, alert and well nourished General appearance: cooperative HENMT Common normals: normocephalic, hearing grossly normal bilaterally and moist oral mucous membranes Head and scalp: normocephalic Eye Common normals: PERRL Pupil: PERRL Neck & C-Spine Common normals: full ROM General: normal visual inspection Chest Common normals: inspection of chest normal Respiratory Common normals: normal respiratory effort, no retractions and no use of accessory muscles Back & Pelvis Lumbar spine/lower back: lumbar ROM normal, ROM limited and straight leg raise negative bilaterally Sacroiliac joints: SI joints normal Extremity Common normals: full ROM and no joint enlargement Neuro Common normals: oriented x3, CN's II-XII intact bilaterally, moves all extremities, no focal motor deficits, no sensory deficits noted and deep tendon reflexes 2+ bilaterally Sensorium/orientation: alert Motor exam: strength 5/5 throughout and no movement abnormalities noted Psych Common normals: mental status grossly normal, thought process normal, cooperative, affect normal, speech normal and activity/motor behavior normal Speech: normal speech Thought process: normal thought process Results Additional Findings Additional findings: If on a controlled substance or opioids, I have checked an [place] report on this patient and there are no aberrancies noted in the prescribing history.??If on a controlled substance or opioid a drug screen was completed and reviewed within the last year, and if there has not been a drug screen completed we ordered one today to monitor higher risk, state monitored pain medication use. As part of providing excellent, safe, comprehensive care, the following was completed at our patient's visit: 1. A medication reconciliation and review to ensure accurate knowledge of current/active medications, including asking our patients to inform us about any [id number] medications or herbal remedies/nutritional supplements/alternative remedies. 2. A review to specifically ensure our patients have had annual screening for screening for depression, screening for tobacco use, and screening for unhealthy alcohol use. For concerning screenings had a discussion with the patient, provided patient education, and recommended follow-up with primary care provider when appropriate. If patient noted with a risk of falling, they received education on strength, gait, and balance training to prevent future risk of falling. 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 The patient does not report intolerable side effects. The patient is NOT opioid naive and non-pharmacologic and non-opioid treatment has failed to significantly relieve the patient's pain and improve functionality. The patient has a diagnosis that is related to a somatic or visceral pain etiology. ? ?? I reviewed with the patient the potential risks and side effects with the use of? opioid medications including but not limited to respiratory depression,? sedation, and even . I verified the patient has access to naloxone should? these effects occur. I advised the patient to avoid the use of any other? sedation substances including alcohol, THC, and benzodiazepines while? taking opioid medications due to the risk of compounding side effects and? detrimental outcomes. I reviewed the PSYCHOLOGIST EXPERIMENTAL, pain treatment agreement, urine? drug screen, and opioid start talking forms. The patient was advised to let? their family know they had Naloxone in case they would need to administer? the medication.? ?? A drug screen was completed within the last year, and no aberrancies were noted regarding their use of controlled substances. The patient understands they are subject to the terms and conditions of the pain contract that they have signed. ? ?? I have checked an [place] report on this patient today and there are no aberrancies noted in the prescribing history.? (5) Lumbar radiculopathy: Plan decrease norco 5-325mg TID PRN moderate to severe pain 65 tabs a month, at this time provide patient with a 2 week supply with 32 tabs as he will be leaving [place] early january to go to [place] for 3+ months. His goal is to wean off of the hydrocodone-acetaminophen. Patient to wean as tolerated encouraged to utilize gabapentin 100mg BID more frequently to assit in weaning continue HEP as tolerated f/u 3-4 months, sooner if needed
== END 2024-01-14 10:32 | disposition home or self-care (01) ==
PROVIDERS: PCP Internal Medicine; Visit Provider Nurse Practitioner
DX: M48.062 Spinal stenosis, lumbar region with neurogenic claudication (principal); N18.9 Chronic kidney disease, unspecified; M47.816 Spondylosis without myelopathy or radiculopathy, lumbar region; Z79.891 Long term (current) use of opiate analgesic; M54.16 Radiculopathy, lumbar region
CPT/HCPCS: G0463

== ENCOUNTER 2024-03-30 09:45 | Outpatient (OUT) | payer MEDICARE, SELFPAY ==
--- NOTE | 2024-03-30 10:39 | P.CN_ITS ---
Consult Note: HPI Data of Consult Patient: known to practice within the last 3 years Requesting Physician: Jennie Ferrera NP Primary Care Provider: Shaikh Dotty MD Consult Narrative Reason for consult: f/u Narrative: Dexter Broussard a pleasant 78 year old male presents for evaluation and management of chronic low back pain, new onset numbness tingling to BUE and BLE post-op. Patient reporting pain today 1/10 up to 5/10, does increase with activity, decreased with medications and sitting. Patient reports norco 5-325 QD-BID PRN provides moderate pain relief without side effects he has been trying to wean down. utilizing gabapentin 100mg hs, could not tolerate higher doses. Patient cannot take NSAIDs as he is on plavix, has failed to benefit from tylenol and PT in the past. Patient underwent lumbar surgery 11/16 with significant improvement ongoing, will f/u with surgeon in april. Patients biggest complaint is numbness and tingling to BUE and BLE post-op. The only thing that helps that pain is the hydrocodone-acetaminophen. cc:: CC: Jennie Ferrera NP Review of Systems ROS Status of ROS 10 or more systems reviewed and unremark able except as noted in history and below Musculoskeletal Reports: back pain and extremity pain PFSH PFSH Medical History (Updated 03/30/24 @ 10:43 by Jennie Ferrera NP) History of stress test ?Z92.89 - Personal history of other medical treatment (ICD-10) Osteoarthritis ?M19.90 - Unspecified osteoarthritis, unspecified site (ICD-10) Hearing deficit ?H91.90 - Unspecified hearing loss, unspecified ear (ICD-10) Stroke ?I63.9 - Cerebral infarction, unspecified (ICD-10) Prostate cancer ?C61 - Malignant neoplasm of prostate (ICD-10) Enlarged prostate ?N40.0 - Benign prostatic hyperplasia without lower urinary tract symptoms (ICD-10) Kidney disease ?N28.9 - Disorder of kidney and ureter, unspecified (ICD-10) Surgical History H/O endarterectomy ?Z98.890 - Other specified postprocedural states (ICD-10) History of bowel resection ?Z90.49 - Acquired absence of other specified parts of digestive tract (ICD- 10) History of exploratory laparotomy ?Z98.890 - Other specified postprocedural states (ICD-10) History of lumbar discectomy ?Z98.890 - Other specified postprocedural states (ICD-10) History of heart artery stent ?Z95.5 - Presence of coronary angioplasty implant and graft (ICD-10) Meds Home Medications and Allergies Home Medications ?Medication ?Instructions ?Recorded ?Confirmed ?Type amlodipine 10 mg tablet 10 mg PO DAILY 02/05/23 08/10/23 History aspirin 81 mg capsule 81 mg PO DAILY 02/05/23 08/10/23 History baclofen 10 mg tablet 10 mg PO DAILY 02/05/23 08/10/23 History ezetimibe 10 mg tablet 10 mg PO DAILY 02/05/23 08/10/23 History gabapentin 100 mg capsule 100 mg PO DAILY #30 caps 02/05/23 08/10/23 Rx hydrocodone 7.5 mg-acetaminophen 1 tab PO TID PRN pain #90 tabs 03/09/23 08/10/23 Rx 325 mg tablet VITAMIN D 50,000U 07/30/23 History clopidogrel 75 mg tablet (Plavix) 75 mg PO DAILY 07/30/23 08/10/23 History desmopressin 0.1 mg tablet 0.1 mg PO QDAY 07/30/23 08/10/23 History lisinopril 20 mg tablet 20 mg PO DAILY 07/30/23 08/10/23 History pravastatin 40 mg tablet 40 mg PO DAILY 07/30/23 08/10/23 History hydrocodone 7.5 mg-acetaminophen 1 tab PO TID PRN pain #90 tabs 08/07/23 08/10/23 Rx 325 mg tablet hydrocodone 7.5 mg-acetaminophen 1 tab PO TID PRN pain #90 tabs 09/08/23 Rx 325 mg tablet hydrocodone 7.5 mg-acetaminophen 1 tab PO TID PRN pain #90 tabs 10/08/23 Rx 325 mg tablet hydrocodone 7.5 mg-acetaminophen 1 tab PO TID PRN pain #90 tabs 11/11/23 Rx 325 mg tablet gabapentin 100 mg capsule 100 mg PO BID #180 caps 01/14/24 Rx hydrocodone 5 mg-acetaminophen 325 See Rx Instructions .Route 01/14/24 Rx mg tablet .COMPLEX PRN pain #32 tabs hydrocodone 5 mg-acetaminophen 325 See Rx Instructions .Route 01/28/24 Rx mg tablet .COMPLEX PRN pain #90 tabs hydrocodone 5 mg-acetaminophen 325 See Rx Instructions .Route 03/18/24 Rx mg tablet .COMPLEX PRN pain #90 tabs hydrocodone 5 mg-acetaminophen 325 See Rx Instructions .Route 03/21/24 Rx mg tablet .COMPLEX PRN pain #90 tabs Allergies Allergy/AdvReac Type Severity Reaction Status Date / Time No Known Drug Allergies Allergy Verified 08/10/23 11:17 Exam Constitutional Documenting provider has reviewed patient's vital signs: yes Common normals: no apparent distress, oriented x3, healthy appearing, alert and well nourished General appearance: cooperative HENMT Common normals: normocephalic, hearing grossly normal bilaterally and moist oral mucous membranes Head and scalp: normocephalic Eye Common normals: PERRL Pupil: PERRL Neck & C-Spine Common normals: full ROM General: normal visual inspection Cervical spine: cervical ROM normal; no pain with cervical ROM Other: negative spurlings sensation intact BUE Chest Common normals: inspection of chest normal Respiratory Common normals: normal respiratory effort, no retractions and no use of accessory muscles Back & Pelvis Lumbar spine/lower back: lumbar ROM normal and straight leg raise negative bilaterally; no pain with ROM Sacroiliac joints: SI joints normal Extremity Common normals: full ROM and no joint enlargement Neuro Common normals: oriented x3, CN's II-XII intact bilaterally, moves all extremities, no focal motor deficits, no sensory deficits noted and deep tendon reflexes 2+ bilaterally Sensorium/orientation: alert Motor exam: strength 5/5 throughout and no movement abnormalities noted Other: numbness and tingling to BUE from elbows to wrists, sensation intact numbness and tingling intermittent from below knee to ankles wrapping around the whole leg Psych Common normals: mental status grossly normal, thought process normal, cooperative, affect normal, speech normal and activity/motor behavior normal Speech: normal speech Thought process: normal thought process Results Additional Findings Additional findings: If on a controlled substance or opioids, I have checked an [place] report on this patient and there are no aberrancies noted in the prescribing history.??If on a controlled substance or opioid a drug screen was completed and reviewed within the last year, and if there has not been a drug screen completed we ordered one today to monitor higher risk, state monitored pain medication use. As part of providing excellent, safe, comprehensive care, the following was completed at our patient's visit: 1. A medication reconciliation and review to ensure accurate knowledge of current/active medications, including asking our patients to inform us about any [id number] medications or herbal remedies/nutritional supplements/alternative remedies. 2. A review to specifically ensure our patients have had annual screening for screening for depression, screening for tobacco use, and screening for unhealthy alcohol use. For concerning screenings had a discussion with the patient, provided patient education, and recommended follow-up with primary care provider when appropriate. If patient noted with a risk of falling, they received education on strength, gait, and balance training to prevent future risk of falling. 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
== END 2024-03-30 09:46 | disposition home or self-care (01) ==
LOC: PM 09:46
PROVIDERS: PCP Internal Medicine; Visit Provider Nurse Practitioner
DX: R20.2 Paresthesia of skin (principal); M47.816 Spondylosis without myelopathy or radiculopathy, lumbar region; Z79.891 Long term (current) use of opiate analgesic; M54.16 Radiculopathy, lumbar region
CPT/HCPCS: G0463

== ENCOUNTER 2024-06-29 10:04 | Outpatient (OUT) | payer MEDICARE, SELFPAY ==
--- NOTE | 2024-06-29 10:37 | PM.CN ---
Consult Note: HPI Data of Consult Patient: known to practice within the last 3 years Requesting Physician: Jennie Ferrera NP Primary Care Provider: Shaikh Dotty MD Consult Narrative Reason for consult: f/u Narrative: Dexter Broussard a pleasant 79 year old male presents for evaluation and management of chronic low back pain, new onset numbness tingling to BUE and BLE post-op. Patient reporting pain today 1/10 up to 6/10, does increase with activity, decreased with medications and sitting. Patient reports norco 5-325 QD-BID PRN provides moderate pain relief without side effects he has been trying to wean down. no longer utilizing gabapentin as it was not helping and he could not tolerate higher doses. Patient cannot take NSAIDs as he is on plavix, has failed to benefit from tylenol and PT in the past. pt reports hes doing well overall with the help of his current medication regimen. CUCA 36%. cc:: CC: Jennie Ferrera NP Review of Systems ROS Status of ROS 10 or more systems reviewed and unremarkable except as noted in history and below Musculoskeletal Reports: back pain and extremity pain PFSH PFSH Medical History (Updated 06/29/24 @ 10:38 by Jennie Ferrera NP) History of stress test ?Z92.89 - Personal history of other medical treatment (ICD-10) Osteoarthritis ?M19.90 - Unspecified osteoarthritis, unspecified site (ICD-10) Hearing deficit ?H91.90 - Unspecified hearing loss, unspecified ear (ICD-10) Stroke ?I63.9 - Cerebral infarction, unspecified (ICD-10) Prostate cancer ?C61 - Malignant neoplasm of prostate (ICD-10) Enlarged prostate ?N40.0 - Benign prostatic hyperplasia without lower urinary tract symptoms (ICD-10) Kidney disease ?N28.9 - Disorder of kidney and ureter, unspecified (ICD-10) Surgical History H/O endarterectomy ?Z98.890 - Other specified postprocedural states (ICD-10) History of bowel resection ?Z90.49 - Acquired absence of other specified parts of digestive tract (ICD-10) History of exploratory laparotomy ?Z98.890 - Other specified postprocedural states (ICD-10) History of lumbar discectomy ?Z98.890 - Other specified postprocedural states (ICD-10) History of heart artery stent ?Z95.5 - Presence of coronary angioplasty implant and graft (ICD-10) Meds Home Medications and Allergies Home Medications ?Medication ?Instructions ?Recorded ?Confirmed ?Type amlodipine 10 mg tablet 10 mg PO DAILY 02/05/23 08/10/23 History aspirin 81 mg capsule 81 mg PO DAILY 02/05/23 08/10/23 History baclofen 10 mg tablet 10 mg PO DAILY 02/05/23 08/10/23 History ezetimibe 10 mg tablet 10 mg PO DAILY 02/05/23 08/10/23 History gabapentin 100 mg capsule 100 mg PO DAILY #30 caps 02/05/23 08/10/23 Rx hydrocodone 7.5 mg-acetaminophen 1 tab PO TID PRN pain #90 tabs 03/09/23 08/10/23 Rx 325 mg tablet VITAMIN D 50,000U 07/30/23 History clopidogrel 75 mg tablet (Plavix) 75 mg PO DAILY 07/30/23 08/10/23 History desmopressin 0.1 mg tablet 0.1 mg PO QDAY 07/30/23 08/10/23 History lisinopril 20 mg tablet 20 mg PO DAILY 07/30/23 08/10/23 History pravastatin 40 mg tablet 40 mg PO DAILY 07/30/23 08/10/23 History hydrocodone 7.5 mg-acetaminophen 1 tab PO TID PRN pain #90 tabs 08/07/23 08/10/23 Rx 325 mg tablet hydrocodone 7.5 mg-acetaminophen 1 tab PO TID PRN pain #90 tabs 09/08/23 Rx 325 mg tablet hydrocodone 7.5 mg-acetaminophen 1 tab PO TID PRN pain #90 tabs 10/08/23 Rx 325 mg tablet hydrocodone 7.5 mg-acetaminophen 1 tab PO TID PRN pain #90 tabs 11/11/23 Rx 325 mg tablet gabapentin 100 mg capsule 100 mg PO BID #180 caps 01/14/24 Rx hydrocodone 5 mg-acetaminophen 325 See Rx Instructions .Route 01/14/24 Rx mg tablet .COMPLEX PRN pain #32 tabs hydrocodone 5 mg-acetaminophen 325 See Rx Instructions .Route 01/28/24 Rx mg tablet .COMPLEX PRN pain #90 tabs hydrocodone 5 mg-acetaminophen 325 See Rx Instructions .Route 03/18/24 Rx mg tablet .COMPLEX PRN pain #90 tabs hydrocodone 5 mg-acetaminophen 325 See Rx Instructions .Route 03/21/24 Rx mg tablet .COMPLEX PRN pain #90 tabs hydrocodone 5 mg-acetaminophen 325 1 tab PO BID PRN pain #60 tabs 04/22/24 Rx mg tablet hydrocodone 5 mg-acetaminophen 325 1 tab PO BID PRN pain #60 tabs 05/26/24 Rx mg tablet naloxone 4 mg/actuation nasal 4 mg intranasal Q2M PRN opioid 05/26/24 Rx spray (Narcan) overdose #2 ea hydrocodone 5 mg-acetaminophen 325 1 tab PO BID PRN pain #60 tabs 06/27/24 Rx mg tablet Allergies Allergy/AdvReac Type Severity Reaction Status Date / Time No Known Drug Allergies Allergy Verified 08/10/23 11:17 Exam Constitutional Documenting provider has reviewed patient's vital signs: yes Common normals: no apparent distress, oriented x3, healthy appearing, alert and well nourished General appearance: cooperative HENMT Common normals: normocephalic, hearing grossly normal bilaterally and moist oral mucous membranes Head and scalp: normocephalic Eye Common normals: PERRL Pupil: PERRL Neck & C-Spine Common normals: full ROM General: normal visual inspection Cervical spine: cervical ROM normal; no pain with cervical ROM Other: negative spurlings sensation intact BUE Chest Common normals: inspection of chest normal Respiratory Common normals: normal respiratory effort, no retractions and no use of accessory muscles Back & Pelvis Lumbar spine/lower back: lumbar ROM normal and straight leg raise negative bilaterally; no pain with ROM Sacroiliac joints: SI joints normal Extremity Common normals: full ROM and no joint enlargement Neuro Common normals: oriented x3, CN's II-XII intact bilaterally, moves all extremities, no focal motor deficits, no sensory deficits noted and deep tendon reflexes 2+ bilaterally Sensorium/orientation: alert Motor exam: strength 5/5 throughout and no movement abnormalities noted Other: numbness and tingling to BUE from elbows to wrists, sensation intact numbness and tingling intermittent from below knee to ankles wrapping around the whole leg Psych Common normals: mental status grossly normal, thought process normal, cooperative, affect normal, speech normal and activity/motor behavior normal Speech: normal speech Thought process: normal thought process Results Additional Findings Additional findings: If on a controlled substance or opioids, I have checked an [place] report on this patient and there are no aberrancies noted in the prescribing history.??If on a controlled substance or opioid a drug screen was completed and reviewed within the last year, and if there has not been a drug screen completed we ordered one today to monitor higher risk, state monitored pain medication use. As part of providing excellent, safe, comprehensive care, the following was completed at our patient's visit: 1. A medication reconciliation and review to ensure accurate knowledge of current/active medications, including asking our patients to inform us about any [id number] medications or herbal remedies/nutritional supplements/alternative remedies. 2. A review to specifically ensure our patients have had annual screening for screening for depression, screening for tobacco use, and screening for unhealthy alcohol use. For concerning screenings had a discussion with the patient, provided patient education, and recommended follow-up with primary care provider when appropriate. If patient noted with a risk of falling, they received education on strength, gait, and balance training to prevent future risk of falling. Portions of this note may have been carried over from the previous visit and updated as appropriate. Please note this office utilizes paper charting in addition to the electronic medical record. A list of current medications, vitals, and PMH is available there as the clinical staff outside of myself do not have access to [employer] charting during the clinic day operations. As part of providing quality comprehensive care the current medications, vitals, and PMH were reviewed in the paper chart. 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 The patient does not report intolerable side effects. The patient is NOT opioid naive and non-pharmacologic and non-opioid treatment has failed to significantly relieve the patient's pain and improve functionality. The patient has a diagnosis that is related to a somatic or visceral pain etiology. ? ?? I reviewed with the patient the potential risks and side effects with the use of? opioid medications including but not limited to respiratory depression,? sedation, and even . Within the last 12 months I have verified the patient has access to naloxone should? these effects occur. The patient was advised to let? their family know they had Naloxone in case they would need to administer? the medication. I advised the patient to avoid the use of any other? sedation substances including alcohol, THC, and benzodiazepines while? taking opioid medications due to the risk of compounding side effects and? detrimental outcomes. within the last 12 months I have reviewed the [employer] FINISH[employer]PER[employer], pain treatment agreement and urine drug screen.? ?? A drug screen was completed within the last year, and no aberrancies were noted regarding their use of controlled substances. The patient understands they are subject to the terms and conditions of the pain contract that they have signed. ? ?? I have checked an [place] report on this patient today and there are no aberrancies noted in the prescribing history.? Plan defer further medications or interventions at this time as pain is well controlled continue current medications, risks vs benefits reviewed continue HEP as tolerated f/u 3 months, sooner if needed
== END 2024-06-29 10:05 | disposition home or self-care (01) ==
LOC: PM 10:04
PROVIDERS: PCP Internal Medicine; Visit Provider Nurse Practitioner
DX: M96.1 Postlaminectomy syndrome, not elsewhere classified (principal); Z79.891 Long term (current) use of opiate analgesic
CPT/HCPCS: G0463

== ENCOUNTER 2024-09-21 10:21 | Outpatient (OUT) | payer MEDICARE, SELFPAY ==
--- NOTE | 2024-09-21 11:13 | P.CN_ITS ---
Consult Note: HPI Data of Consult Patient: known to practice within the last 3 years Requesting Physician: Jennie Ferrera NP Primary Care Provider: Shaikh Dotty MD Consult Narrative Reason for consult: f/u Narrative: Dexter Broussard a pleasant 79 year old male presents for evaluation and management of chronic low back pain, new onset numbness tingling to BUE and BLE post-op. Patient reporting pain today 2/10 up to 6/10, does increase with activity, decreased with medications and sitting. Patient reports norco 5-325mg BID with moderate relief without side effects. no longer utilizing gabapentin as it was not helping and he could not tolerate higher doses. Patient cannot take NSAIDs as he is on plavix, has failed to benefit from tylenol and PT in the past. pt reports hes doing well overall with the help of his current medication regimen. CUCA 36%. cc:: CC: Jennie Ferrera NP Review of Systems ROS Status of ROS 10 or more systems reviewed and unremark able except as noted in history and below Musculoskeletal Reports: back pain and extremity pain PFSH PFSH Medical History (Updated 06/29/24 @ 10:38 by Jennie Ferrera NP) History of stress test ?Z92.89 - Personal history of other medical treatment (ICD-10) Osteoarthritis ?M19.90 - Unspecified osteoarthritis, unspecified site (ICD-10) Hearing deficit ?H91.90 - Unspecified hearing loss, unspecified ear (ICD-10) Stroke ?I63.9 - Cerebral infarction, unspecified (ICD-10) Prostate cancer ?C61 - Malignant neoplasm of prostate (ICD-10) Enlarged prostate ?N40.0 - Benign prostatic hyperplasia without lower urinary tract symptoms (ICD-10) Kidney disease ?N28.9 - Disorder of kidney and ureter, unspecified (ICD-10) Surgical History H/O endarterectomy ?Z98.890 - Other specified postprocedural states (ICD-10) History of bowel resection ?Z90.49 - Acquired absence of other specified parts of digestive tract (ICD- 10) History of exploratory laparotomy ?Z98.890 - Other specified postprocedural states (ICD-10) History of lumbar discectomy ?Z98.890 - Other specified postprocedural states (ICD-10) History of heart artery stent ?Z95.5 - Presence of coronary angioplasty implant and graft (ICD-10) Meds Home Medications and Allergies Home Medications ?Medication ?Instructions ?Recorded ?Confirmed ?Type amlodipine 10 mg tablet 10 mg PO DAILY 02/05/23 09/21/24 History aspirin 81 mg capsule 81 mg PO DAILY 02/05/23 09/21/24 History VITAMIN D 50,000U 07/30/23 History clopidogrel 75 mg tablet (Plavix) 75 mg PO DAILY 07/30/23 09/21/24 History pravastatin 40 mg tablet 40 mg PO DAILY 07/30/23 09/21/24 History hydrocodone 5 mg-acetaminophen 325 See Rx Instructions .Route 01/14/24 Rx mg tablet .COMPLEX PRN pain #32 tabs hydrocodone 5 mg-acetaminophen 325 See Rx Instructions .Route 01/28/24 Rx mg tablet .COMPLEX PRN pain #90 tabs hydrocodone 5 mg-acetaminophen 325 See Rx Instructions .Route 03/18/24 Rx mg tablet .COMPLEX PRN pain #90 tabs hydrocodone 5 mg-acetaminophen 325 See Rx Instructions .Route 03/21/24 Rx mg tablet .COMPLEX PRN pain #90 tabs hydrocodone 5 mg-acetaminophen 325 1 tab PO BID PRN pain #60 tabs 04/22/24 Rx mg tablet hydrocodone 5 mg-acetaminophen 325 1 tab PO BID PRN pain #60 tabs 05/26/24 09/21/24 Rx mg tablet naloxone 4 mg/actuation nasal 4 mg intranasal Q2M PRN opioid 05/26/24 Rx spray (Narcan) overdose #2 ea hydrocodone 5 mg-acetaminophen 325 1 tab PO BID PRN pain #60 tabs 06/27/24 Rx mg tablet hydrocodone 5 mg-acetaminophen 325 1 tab PO BID PRN pain #60 tabs 07/25/24 Rx mg tablet hydrocodone 5 mg-acetaminophen 325 1 tab PO BID PRN pain #60 tabs 08/25/24 Rx mg tablet valsartan 80 mg tablet 80 mg PO DAILY 09/21/24 09/21/24 History Allergies Allergy/AdvReac Type Severity Reaction Status Date / Time No Known Drug Allergies Allergy Verified 08/10/23 11:17 Exam Constitutional Documenting provider has reviewed patient's vital signs: yes Common normals: no apparent distress, oriented x3, healthy appearing, alert and well nourished General appearance: cooperative [facility] Common normals: normocephalic, hearing grossly normal bilaterally and moist oral mucous membranes Head and scalp: normocephalic Eye Common normals: PERRL Pupil: PERRL Neck & C-Spine Common normals: full ROM General: normal visual inspection Cervical spine: cervical ROM normal; no pain with cervical ROM Other: negative spurlings sensation intact BUE Chest Common normals: inspection of chest normal Respiratory Common normals: normal respiratory effort, no retractions and no use of ac cessory muscles Back & Pelvis Lumbar spine/lower back: lumbar ROM normal and straight leg raise negative bilaterally; no pain with ROM Sacroiliac joints: SI joints normal Extremity Common normals: full ROM and no joint enlargement Neuro Common normals: oriented x3, CN's II-XII intact bilaterally, moves all extremities, no focal motor deficits, no sensory deficits noted and deep tendon reflexes 2+ bilaterally Sensorium/orientation: alert Motor exam: strength 5/5 throughout and no movement abnormalities noted Other: numbness and tingling to BUE from elbows to wrists, sensation intact numbness and tingling intermittent from below knee to ankles wrapping around the whole leg Psych Common normals: mental status grossly normal, thought process normal, cooperative, affect normal, speech normal and activity/motor behavior normal Speech: normal speech Thought process: normal thought process Results Additional Findings Additional findings: If on a controlled substance or opioids, I have checked an OARRS report on this patient and there are no aberrancies noted in the prescribing history.??If on a controlled substance or opioid a drug screen was completed and reviewed within the last year, and if there has not been a drug screen completed we ordered one today to monitor higher risk, state monitored pain medication use. As part of providing excellent, safe, comprehensive care, the following was completed at our patient's visit: 1. A medication reconciliation and review to ensure accurate knowledge of current/active medications, including asking our patients to inform us about any [id number] medications or herbal remedies/nutritional supplements/alternative remedies. 2. A review to specifically ensure our patients have had annual screening for screening for depression, screening for tobacco use, and screening for unhealthy alcohol use. For concerning screenings had a discussion with the patient, provided patient education, and recommended follow-up with primary care provider when appropriate. If patient noted with a risk of falling, they received education on strength, gait, and balance training to prevent future risk of falling. Portions of this note may have been carried over from the previous visit and updated as appropriate. Please note this office utilizes paper charting in addition to the electronic medical record. A list of current medications, vitals, and PMH is available there as the clinical staff outside of myself do not have access to [employer] charting during the clinic day operations. As part of providing quality comprehensive care the current medications, vitals, and PMH were reviewed in the paper chart. 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 The patient does not report intolerable side effects. The patient is NOT opioid naive and non-pharmacologic and non-opioid treatment has failed to significantly relieve the patient's pain and improve functionalit y. The patient has a diagnosis that is related to a somatic or visceral pain etiology. ? ?? I reviewed with the patient the potential risks and side effects with the use of? opioid medications including but not limited to respiratory depression,? sedation, and even . Within the last 12 months I have verified the patient has access to naloxone should? these effects occur. The patient was advised to let? their family know they had Naloxone in case they would need to administer? the medication. I advised the patient to avoid the use of any other? sedation substances including alcohol, THC, and benzodiazepines while? taking opioid medications due to the risk of compounding side effects and? detrimental outcomes. within the last 12 months I have reviewed the SENIOR VICE PRESIDENT AND CHIEF INFORMATION OFFICER, pain treatment agreement and urine drug screen.? ?? A drug screen was completed within the last year, and no aberrancies were noted regarding their use of controlled substances. The patient understands they are subject to the terms and conditions of the pain contract that they have signed. ? ?? I have checked an OARRS report on this patient today and there are no aberrancies noted in the prescribing history.? Plan defer further medications or interventions at this time as pain is well controlled pt is traveling to [place] for 6 weeks will be gone 10/05-october, as discussed today will increase hydrocodone-acetaminophen 5-325mg BID-TID PRN moderate to severe pain 90 tabs to last at least 30 days. will decrease to BID PRN moderate to severe pain 60 tabs end of october/beginning of November continue HEP as tolerated f/u 3 months, sooner if needed
== END 2024-09-21 10:22 ==
LOC: PM 10:24
PROVIDERS: PCP Internal Medicine; Visit Provider Nurse Practitioner
DX: M96.1 Postlaminectomy syndrome, not elsewhere classified (principal); Z79.891 Long term (current) use of opiate analgesic
CPT/HCPCS: G0463

== ENCOUNTER 2025-01-04 13:41 | Outpatient (OUT) | payer MEDICARE, SELFPAY ==
--- OUTSIDE RECORDS SUMMARY | 2025-01-04 13:43 | XMS_ITS ---
Author Organization [facility] Address [address] [place], [place] [id number] Care Team Providers Care Lodge Officer Name Role Phone Shaikh AUBREE Storm Primary Care Provider [phone] Ronaldo Alaniz MD Unavailable [phone] Constance Durand Unavailable Unavailable Active Problems Problem Noted Date Diagnosed Date Stage 3 chronic kidney disease 11/19/2022 Prostate cancer 11/18/2022 Current Treatment and Therapy Plans No current plan information found. Past Treatment and Therapy Plans No past plan information found. Treatment Summaries Prostate cancer (HCC)* Treatment Summary and Survivorship Care Plan for Prostate Cancer Provided by: Elizabeth Freire APRN.CNP General Information Patient Name: Vasyl Broussard Patient : 1945 Patient phone: Email: No e-mail address on record Health Care Providers Primary Care Provider: Dr. Shaikh Storm Urologic Surgeon: Dr. Ronaldo Alaniz Radiation Oncologist: Dr. Lyla Raza Other Providers: Elizabeth Freire APRN.CNP Treatment Summary Diagnosis Cancer Type: Adenocarcinoma of the Prostate Location: See Handout Diagnosis Date (year): June 06, 2021 Histology Subtype: Prostate Cancer Stage:IIB; Clinical stage T1b, N0, M0 Barling Score: 3+4=7 PSA at Diagnosis: 9.95 Clinical Trial: No Treatment Completed Surgery: Yes Surgery Date(s) (year): June 06, 2021 Surgical procedure/location/findings: Transrectal ultrasound guided biopsy; See pathology report; Adenocarcinoma of the Prostate External beam radiation: Yes Prostate and Pelvis: Yes: End Date (year): April 23, 2022 (March 18, 2022 through April) RADIATION SUMMARY: DATES OF TREATMENT: 03/18/2022- 04/23/2022 AREA TREATED: Pelvis and Prostate DELIVERED DOSE: Area: pelvis/ prostate 7000 cGy in 28 fractions, 2 Arcs, IMRT, 10 MV with daily CBCT TOTAL: 7000 cGy in 28 fractions ELAPSED TIME: 36 days. Brachytherapy to prostate: No Systemic Therapy (chemotherapy, hormonal therapy, other): No Presistent symptoms or side effects at completion of treatment: Yes: Frequent urination - Worse at night Follow-up Care Plan Schedule of clinical visits Coordinating Provider When/How often Dr. Lyla Raza Every 6 months x2 years, then once yearly. Dr. Ronaldo Alaniz Per Dr. Alaniz Cancer surveillance or other recommended related tests Coordinating Provider Test How Often Dr. Lyla Raza PSA (Prostate Specific Antigen) Every 6 months x2 years, then once yearly. Dr. Ronaldo Alaniz PSA (Prostate Specific Antigen) Per Dr. Corbin Storm Per Dr. Storm Per Dr. Storm Please continue to see your primary care provider for all general health care recommended for a (man) (women) your age, including cancer screening tests. Any symptoms should be brought to the attention of your provider: 1. Anything that represents a brand new symptom; 2. Anything that represents a persistent symptom; 3. Anything you are worried about that might be related to the cancer coming back. Possible late- and long-term effects that someone with this type of cancer and treatment may experience: Erectile dysfunction, Incontinence, Painful urination, Rectal pain, Shortening of the penis, Skin irritation or darkening, Sterility, Tirdness, Trouble voiding or passing uring (urinary retention), and Urinary frequency Cancer survivors may experience issues with the areas listed below. If you have any concerns in these or other areas, please speak with your doctors or nurses to find out how you can get help with them: anxiety or depression , emotional or mental health, fatigue, fertility, financial advice or assistance, insurance, memory or concentration loss, parenting, physicial functioning, school/work, and sexual functioning A number of lifestyle/behaviors can affect your ongoing health, including the risk for the cancer coming back or developing another cancer. Discuss these recommendations with your doctor or nurse: alcohol use, diet, management of medications, management of other illnesses, physical activity, sun screen use, tobacco use/cessation, and weight management (loss/gain) Resources you may be interested in: www.cancer.net [employer].com Rn Lpn Cna Circular Knife Cutter Machine Art Therapy Support Groups- Contact Rn Lpn Cna for dates and times. Prepared by: Elizabeth Freire APRN.MARKETING OPERATIONS CONSULTANT Delivered on: November 18, 2022 - This Survivorship Care Plan is a cancer treatment summary and follow-up plan is provided to you to keep with your health care records and to share with your primary care provider. - This summary is a brief record of major aspects of your cancer treatment. You can share your copywith any of your doctors or nurses. However, this is not a detailed or comprehensive record of yourcare.
--- OUTSIDE RECORDS SUMMARY | 2025-01-04 13:43 | XMS_ITS | Encounter Summary ---
Author Organization [facility] Address [address] [place] [address] Care Team Providers Care Dinker Name Role Phone Brian Avalos MD Primary Care Provider [phone] Kayley Ward MANAGER MOTOR Unavailable [phone] Reason for Visit * Reason Comments Med Refill Encounter Details Date Type Department Care Team (Late st Contact Info) Description 12/09/2024 Refill [facility] [address] [place] [address] Qian Son NP [address] [place] [id number] Primary hypertension Social History Tobacco Use Types Packs/Day Years Used Date Smoking Tobacco: Every Day Cigarettes 0.3 65 Passive Smoke Exposure: Current Smokeless Tobacco: Never Comments:Pt down to 4 per da y, required to quit smoking before back surgery could be done. Alcohol Use Standard Drinks/Week Comments Not Currently 0 (1 standard drink = 0.6 oz pur e alcohol) former B1300 Health Literacy Answer Date Recor ded How often do you need to hav e someone help you when you read instructions, pamphlets, or other written material from your doctor or pharmacy? Never 01/20/2024 Social Connection and Isolation Panel [NHANES] A nswer Date Recorded In a typical week, how many times do you talk on the phone with family, friends, or neighbors? Patient declined 01/20/2024 How often do you get togethe r with friends or relatives? Patient declined 01/20/2024 How often do you attend latter-day or gnosticism serv ices? Patient declined 01/20/2024 Do you belong to any clubs o r organizations such as latter-day groups, unions, fraternal or athletic groups, or school groups? Patient declined 01/20/2024 How often do you attend meet ings of the clubs or organizations you belong to? Patient declined 01/20/2024 Are you , , di vorced, , never , or living with a partner? Patient declined 01/20/2024 AUDIT-C Answer Date Recorded Q1: How often do you have a drink containing alcohol? Never 01/20/2024 Q2: How many drinks containi ng alcohol do you have on a typical day when you are drinking? Patient does not drink Q3: How often do you have si x or more drinks on one occasion? Never 01/20/2024 Overall Financial Resource Strain (CARDIA) Answe r Date Recorded How hard is it for you to pa y for the very basics like food, housing, medical care, and heating? Patient declined 01/20/2024 PHQ-2 Answer Date Recorded Patient Health Questionnaire-2 Score 0 01/20/2024 Exercise Vital Sign Answer Date Recorde d On average, how many days pe r week do you engage in moderate to strenuous exercise (like a brisk walk)? Patient declined On average, how many minutes do you engage in exercise at this level? Patient declined 01/20/2024 Hunger Vital Sign Answer Date Recorded Within the past 12 months, y ou worried that your food would run out before you got the money to buy more. Patient declined Within the past 12 months, t he food you bought just didn't last and you didn't have money to get more. Patient declined PRAPARE - Transportation Answer Date Re corded In the past 12 months, has l ack of transportation kept you from medical appointments or from getting medications? No 12/31 In the past 12 months, has l ack of transportation kept you from meetings, work, or from getting things needed for daily living? No 01/20/2024 Housing Stability Vital Sign Answer Reginald e Recorded In the last 12 months, was t here a time when you were not able to pay the mortgage or rent on time? No 01/20/2024 Number of Times Moved in the Last Year Not on fi le 01/20/2024 At [facility] time [facility] the [facility] were you homeless or living in a senior living (including now)? No 01/20/2024 Sex and Gender Information Value Date Recorded Sex Assigned at Not on file Legal Sex Male 11:33 PM EDT Gender Identity Not on file Sexual Orientation Not on file documented as of this encounter Miscellaneous Notes * Telephone Encounter - Qian Son NP - 12/09/2024 12:33 PM EDT Please schedule the patient an appt [place] documented in this encounter Plan of Treatment Not on file documented as of this encounter Visit Diagnoses Diagnosis Primary hypertension Unspecified essential hypertension documented in this encounter Additional Health Concerns Assessment Noted Time PHQ-9 Depression Total Score: 5 12/08/19 24 11:00 AM EDT documented as of this encounter Care Teams Dinker Relationship Specialty Start Date End Date Brian Avalos MD [address] [place] [address] PCP - General Family Medicine 01/12/24 Kayley Ward NP [address] [place] [address] Nurse Practitioner Family Medicine 01/12/24 documented as of this encounter
--- OUTSIDE RECORDS SUMMARY | 2025-01-04 13:43 | XMS_ITS | Encounter Summary ---
Author Organization [facility] Address [address] [place] [address] Care Team Providers Care Bone Drier Operator Name Role Phone Shaikh AUBREE Storm Primary Care Provider [phone] Brian Avalos MD Primary Care Provider [phone] Kayley Ward NP Unavailable [phone] Encounter Details Date Type Department Care Team (Late st Contact Info) Description 12/09/2023 Orders Only [facility] [address] [place] [address] Cornel Ravi MD [address] [place] [address] Social History Tobacco Use Types Packs/Day Years Used Date Smoking Tobacco: Every Day Cigarettes 0.3 65 Passive Smoke Exposure: Current Smokeless Tobacco: Never Comments:Pt down to 4 per da y, required to quit smoking before back surgery could be done. Alcohol Use Standard Drinks/Week Comments Not Currently 0 (1 standard drink = 0.6 oz pur e alcohol) former PHQ-2 Answer Date Recorded Patient Health Questionnaire-2 Score 2 12/08/2023 Sex and Gender Information Value Date Recorded Sex Assigned at Not on file Legal Sex Male 11:33 PM EDT Gender Identity Not on file Sexual Orientation Not on file documented as of this encounter Plan of Treatment Not on file documented as of this encounter Visit Diagnoses Not on filedocumented in this encounter Additional Health Concerns Assessment Noted Time PHQ-9 Depression Total Score: 5 12/08/19 24 11:00 AM EDT documented as of this encounter Care Teams Bone Drier Operator Relationship Specialty Start Date End Date Shaikh Storm MD [address] [place] [phone] PCP - General Internal Medicine 09/28/23 01/11/24 Brian Avalos MD [address] [place] [phone] PCP - General Family Medicine 01/12/24 Kayley Ward NP [address] [place] [phone] Nurse Practitioner Family Medicine 01/12/24 documented as of this encounter
--- OUTSIDE RECORDS SUMMARY | 2025-01-04 13:43 | XMS_ITS | Encounter Summary ---
Author Organization [facility] Address [address] [place] [address] Care Team Providers Care Facility Supervisor Name Role Phone Brian Avalos MD Primary Care Provider [phone] Kayley Ward PRINT PRESS OPERATOR Unavailable [phone] Encounter Details Date Type Department Care Team (Late st Contact Info) Description 04/11/2024 Orders Only [facility] [address] [place] [phone] Kayley Ward NP Social History Tobacco Use Types Packs/Day Years [...] declined 01/20/2024 How often do you attend sabianism or taoism serv ices? Patient declined 01/20/2024 Do you belong to any clubs o r organizations such as sabianism groups, unions, fraternal or athletic groups, or [...] any time in the past 12 m onths, were you homeless or living in a long-term (including now)? No 01/20/2024 Sex and Gender Information Value Date Recorded Sex Assigned at Not on file Legal Sex Male 11:33 PM EDT Gender Identity Not on file Sexual Orientation Not on file documented as of this encounter Plan of Treatment Not on file documented as of this encounter Procedures Procedure Name Priority Date/Time Associated Diagnosis Comments SCANNED LABS Routine 04/11/2024 3:25 PM EST SCANNED LABS Routine 04/11/2024 9:23 AM EST documented in this encounter Results * SCANNED LABS (04/11/2024 3:25 PM EST) Kayley Ward PRINT PRESS OPERATOR LAB CHG PERFORMABLES Fin al Result * SCANNED LABS (04/11/2024 9:23 AM EST) Kayley Ward PRINT PRESS OPERATOR LAB CHG PERFORMABLES Fin al Result documented in this encounter Visit Diagnoses Not on filedocumented in this encounter Additional Health Concerns Assessment Noted Time PHQ-9 Depression Total Score: 5 12/08/19 24 11:00 AM EDT documented as of this encounter Care Teams Facility Supervisor Relationship Specialty Start Date End Date Brian Avalos MD [address] [place] [address] PCP - General Family Medicine 01/12/24 Kayley Ward NP [address] [place] [address] Nurse Practitioner Family Medicine 01/12/24 documented as of this encounter
--- OUTSIDE RECORDS SUMMARY | 2025-01-04 13:43 | XMS_ITS | Encounter Summary ---
Author Organization [facility] Address [address] [place] [address] Care Team Providers Care Water Plumber Name Role Phone Brian Avalos MD Primary Care Provider [phone] Kayley Ward BOTTOM PRECIPITATOR OPERATOR Unavailable [phone] Encounter Details Date Type Department Care Team (Late st Contact Info) Description 08/10/2024 Orders Only [facility] [address] [place] [phone] Claire James MD [address] [place] [address] Social History Tobacco Use Types Packs/Day Years [...] declined 01/20/2024 How often do you attend uatsdin or latter day serv ices? Patient declined 01/20/2024 Do you belong to any clubs o r organizations such as uatsdin groups, unions, fraternal or athletic groups, or [...] any time in the past 12 m [facility], were you homeless or living in a retirement (including now)? No 01/20/2024 Sex and Gender Information Value Date Recorded Sex Assigned at Not on file Legal Sex Male 11:33 PM EDT Gender Identity Not on file Sexual Orientation Not on file documented as of this encounter Plan of Treatment Not on file documented as of this encounter Procedures Procedure Name Priority Date/Time Associated Diagnosis Comments SCANNED LABS Routine 08/10/2024 9:36 AM EDT documented in this encounter Results * SCANNED LABS (08/10/2024 9:36 AM EDT) us Claire James MD LAB CHG PERFORMABLES Final Res ult documented in this encounter Visit Diagnoses Not on filedocumented in this encounter Additional Health Concerns Assessment Noted Time PHQ-9 Depression Total Score: 5 12/08/19 24 11:00 AM EDT documented as of this encounter Care Teams Water Plumber Relationship Specialty Start Date End Date Brian Avalos MD [address] [place] [address] PCP - General Family Medicine 01/12/24 Kayley Ward NP [address] [place] [address] Nurse Practitioner Family Medicine 01/12/24 documented as of this encounter
--- OUTSIDE RECORDS SUMMARY | 2025-01-04 13:43 | XMS_ITS | Encounter Summary ---
Author Organization [facility] Address [address] [place] [address] Care Team Providers Care Museum Educator Name Role Phone Brian Avalos MD Primary Care Provider [phone] Kayley Ward CARPENTER WOODEN TANK ERECTING Unavailable [phone] Encounter Details Date Type Department Care Team (Late st Contact Info) Description 08/25/2024 Orders Only [facility] [address] [place] [phone] Cherie William NP [address] [place] [address] Social History Tobacco Use Types Packs/Day Years [...] declined 01/20/2024 How often do you attend confucianism or shinto serv ices? Patient declined 01/20/2024 Do you belong to any clubs o r organizations such as confucianism groups, unions, fraternal or athletic groups, or [...] any time in the past 12 m [facility], were you homeless or living in a mcc (including now)? No 01/20/2024 Sex and Gender Information Value Date Recorded Sex Assigned at Not on file Legal Sex Male 11:33 PM EDT Gender Identity Not on file Sexual Orientation Not on file documented as of this encounter Plan of Treatment Not on file documented as of this encounter Procedures Procedure Name Priority Date/Time Associated Diagnosis Comments SCANNED LABS Routine 08/25/2024 9:23 AM EDT documented in this encounter Results * SCANNED LABS (08/25/2024 9:23 AM EDT) Cherie William NP LAB CHG PERFORMABLES Final Resu lt documented in this encounter Visit Diagnoses Not on filedocumented in this encounter Additional Health Concerns Assessment Noted Time PHQ-9 Depression Total Score: 5 12/08/19 24 11:00 AM EDT documented as of this encounter Care Teams Museum Educator Relationship Specialty Start Date End Date Brian Avalos MD [address] [place] [address] PCP - General Family Medicine 01/12/24 Kayley Ward NP [address] [place] [address] Nurse Practitioner Family Medicine 01/12/24 documented as of this encounter
--- OUTSIDE RECORDS SUMMARY | 2025-01-04 13:43 | XMS_ITS | Encounter Summary ---
Author Organization [facility] Address [address] [place] [address] Care Team Providers Care Ribbon Blockmaker Name Role Phone Brian Avalos MD Primary Care Provider [phone] Kayley Ward CAR RENTAL MANAGER Unavailable [phone] Encounter Details Date Type Department Care Team (Late st Contact Info) Description 08/15/2024 Orders Only [facility] [address] [place] [phone] Claire James MD [address] [place] [address] Social History Tobacco Use Types Packs/Day Years [...] declined 01/20/2024 How often do you attend gnosticism or baptist serv ices? Patient declined 01/20/2024 Do you belong to any clubs o r organizations such as gnosticism groups, unions, fraternal or athletic groups, or [...] any time in the past [address] [facility], were you homeless or living in a longterm (including now)? No 01/20/2024 Sex and Gender Information Value Date Recorded Sex Assigned at Not on file Legal Sex Male 11:33 PM EDT Gender Identity Not on file Sexual Orientation Not on file documented as of this encounter Plan of Treatment Not on file documented as of this encounter Procedures Procedure Name Priority Date/Time Associated Diagnosis Comments SCANNED LABS Routine 08/15/2024 1:54 PM EDT documented in this encounter Results * SCANNED LABS (08/15/2024 1:54 PM EDT) us Claire James MD LAB CHG PERFORMABLES Final Res ult documented in this encounter Visit Diagnoses Not on filedocumented in this encounter Additional Health Concerns Assessment Noted Time PHQ-9 Depression Total Score: 5 12/08/19 24 11:00 AM EDT documented as of this encounter Care Teams Ribbon Blockmaker Relationship Specialty Start Date End Date Brian Avalos MD [address] [place] [address] PCP - General Family Medicine 01/12/24 Kayley Ward NP [address] [place] [address] Nurse Practitioner Family Medicine 01/12/24 documented as of this encounter
--- OUTSIDE RECORDS SUMMARY | 2025-01-04 13:43 | XMS_ITS | Clinical Summary ---
Author Organization [facility] Address [address] [place] [address] Care Team Providers Care Die Maker Bench Stamping Name Role Phone Brian Avalos MD Primary Care Provider [phone] Kayley Ward UNDERGROUND SUPERVISOR Unavailable [phone] Allergies Active Allergy Reactions Criticality Noted Date Comments Ezetimibe GI intolerance 04/27/2023 Statins Other Medium 03/30/2023 Muscle/Joint Pain Other Reaction(s): Other Muscle/Joint Pain Other Reaction(s): lipitor Medications pravastatin (Pravachol) 40 MG tablet Take 40 mg by mouth at bedtime. Active ergocalciferol (Vitamin D-2) 1.25 MG (03270 UT) capsule Take 1.25 mg by mouth 1 (one) time per week. Active ASPIRIN 81 MG chewable tablet Chew 81 mg in the morning. Active clopidogrel (Plavix) 75 MG tablet Take 75 mg by mouth in the morning. 3 Active valsartan (Diovan) 80 MG tablet Take 80 mg by mouth in the morning. 4 Active acetaminophen (Tylenol) 325 MG tablet Take 650 mg by mouth every 8 (eight) hours 4 Active amLODIPine (Norvasc) 10 MG tabletIndication s:Primary hypertension Take 1 tablet (10 mg) by mouth in the morning. 90 tablet 5 025 Active amLODIPine (Norvasc) 10 MG tabletIndication s:Primary hypertension Take 1 tablet (10 mg) by mouth in the morning. 90 tablet 04/14 025 Discontinued Active Problems Problem Noted Date Diagnosed Date Age-related nuclear cataract of left eye 024 Nuclear senile cataract 09/28/2023 Elevated random blood glucose level 09/28/2023 Assessment & Plan (09/28/2023 9:46 AM EDT): Elevated random blood glucose levels when he had labs earlier this year. Check A1C. Unintentional weight change 09/28/2023 Assessment & Plan (09/28/2023 9:45 AM EDT): Weight loss of 7 lbs in 3 months. Reports feeling tired. Check TSH. Gastroesophageal reflux disease without esophagi tis 09/28/2023 Assessment & Plan (01/20/2024 6:53 PM EDT): Taking Omeprazole 40mg Reports he is doing very well. Denies complaints. Assessment & Plan (09/28/2023 9:47 AM EDT): Reports metallic taste in mouth, early satiety and mild abdominal discomfort. Trial of Omerpazole. Follow up in 2 months. Lumbar radiculopathy 09/02/2023 Lumbar stenosis with neurogenic claudication 07/2023 Assessment & Plan (07/13/2024 1:50 PM EST): Following with Pain Management for Lumbar Stenosis. Recently reduced dosage of Jefferson. Feels symptoms are well controlled. Continue current regimen as directed by PM. Assessment & Plan (12/08/2023 11:52 AM EDT): S/p lumbar surgery. Well healed surgical scars. Pain is well controlled Assessment & Plan (09/28/2023 9:45 AM EDT): Recommended surgery by NS. He is planning to go ahead with it. Pain is persistent, unchanged. Synovial cyst of lumbar facet joint 09/02/2023 Coronary artery disease invo lving [place] coronary artery of [place] heart without angina pectoris 06/29/2023 Assessment & Plan (01/20/2024 6:42 PM EDT): Follows Cardiology Lipid panel done in 09/2023- looked great. Continue Pravastatin as ordered. Assessment & Plan (12/08/2023 11:50 AM EDT): S/p PCI years ago. Nuclear stress 2022 - normal C/w ASA, plavix and statin Assessment & Plan (09/28/2023 9:44 AM EDT): S/p PCI years ago. Nuclear stress 2022 - normal C/w ASA, plavix and statin Assessment & Plan (06/29/2023 7:03 PM EST): S/p PCI in 1989. Normal nuclear stress test. No CP, SOB, palpitations. On ASA, plavix and statin. Atenolol discontinued due to bradycardia. 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 Is down to 0.5ppd currently. Patient counseled on smoking/tobacco cessation. Patient educated on harmful effects of smoking cigarettes/tobacco including increased risk of cardiovascular diseases, chronic lung disease and multiple cancers. Patient was educated and informed of different behavioral and therapeutic interventions that can help with smoking/tobacco use. Patient's questions/concerns were addressed and answered related to therapeutic options. Patient was offered help and encouraged to reach out to provider if/when they are ready to quit. Assessment & Plan (06/29/2023 7:05 PM EST): He is using Nicotine patches currently. Trying to quite smoking. Will call in Chantix for the patient. Patient counseled on smoking/tobacco cessation. Patient educated on harmful effects of smoking cigarettes/tobacco including increased risk of cardiovascular diseases, chronic lung disease and multiple cancers. Patient was educated and informed of different behavioral and therapeutic interventions that can help with smoking/tobacco use. Patient's questions/concerns were addressed and answered related to therapeutic options. Patient was offered help and encouraged to reach out to provider if/when they are ready to quit. A total of over 3 minutes and up to 10 minutes were spent on Smoking/Tobacco use counseling. Chronic bilateral low back pain with bilateral s ciatica 06/29/2023 Assessment & Plan (06/29/2023 7:14 PM EST): Chronic LBP with claudication on ambulation. His symptoms were presumed to be multifactorial and claudication resulting from vascular insufficiency along with neurological claudication. His left LE pain has sig improved since vascular surgery in 03/23. He continues to exp pain in low back, with radiation to b/l hips on prolonged ambulation. Patient is on Jefferson for chronic pain. He was evaluated by NS at [facility] and it seemed like they were concerned about possible opioid induced hyperalgesia. Patient has been trying to wean himself off of Jefferson but if he does not use it atleast 2 times a day, he is very uncomfortable. Patient has given us no reason to suspect abuse, overuse or misuse of narcotics and never asks for early refills. He is trying to quit smoking and down to half pack a day of cigarettes daily. MRI with Grade 1 L4/5 spondy with L>R foraminal stenosis Moderate central canal stenosis at this level, L3/4 with Right sided facet cyst L5/S1 with Right sided L5 foraminal stenosis Will refer to NS at [facility]. CVA (cerebral vascular accident) 06/04/2023 Assessment & Plan (06/29/2023 6:57 PM EST): Prior hx of ischemic CVA. No residual deficit. On ASA, statin. Carotid artery disease 06/04/2023 PAD (peripheral artery disease) 06/04/2023 Assessment & Plan (09/28/2023 9:43 AM EDT): On ASA, Plavix and statin. [place] [facility] [place] Leg pain has improved and is doing well Heart disease 06/04/2023 BPH (benign prostatic hyperplasia) 06/04/2023 History of MA (myocardial infarction) 06/04/2023 HLD (hyperlipidemia) 04/27/2023 Assessment & Plan (07/13/2024 1:50 PM EST): Currently taking Prvastatin 40mg Denies any myalgias. Continue current regimen. Assessment & Plan (04/21/2024 11:42 AM EST): Currently taking Prvastatin 40mg Denies any myalgias. Continue current regimen. Assessment & Plan (09/28/2023 9:46 AM EDT): On pravastatin Check lipid panel . Assessment & Plan (06/29/2023 7:07 PM EST): Lipid panel 05/23 - LDL at goal. C/w pravastatin Assessment & Plan (04/27/2023 12:01 PM EST): Recently started on Pravastatin by Vascular surgery. Check Lipid Panel in one month. Hypertension 04/27/2023 Assessment & Plan (07/13/2024 1:50 PM EST): Currently taking amlodipine, valsartan. Follows with Cardiology Does not check BP at home; Denies orthostatic changes, dizziness, cough, shortness of breath, swelling in extremities. Continue current regimen. Given BP log, advised pt to record BP and bring log back with them to next visit. Assessment & Plan (04/21/2024 11:42 AM EST): Currently taking amlodipine, valsartan. Follows with Cardiology Does not check BP at home; Denies orthostatic changes, dizziness, cough, shortness of breath, swelling in extremities. Continue current regimen. Given BP log, advised pt to record BP and bring log back with them to next visit. Assessment & Plan (01/20/2024 6:38 PM EDT): Taking Amlodipine and Valsartan Denies orthostatic changes Continue amlodipine and valsartan Assessment & Plan (09/28/2023 9:44 AM EDT): C/w amlodipine. At goal. Monitor. Assessment & Plan (06/29/2023 7:02 PM EST): BP well controlled. On average less than 130/90. Tolerating Anti hypertensive w/o adverse effects. Denies lightheadedness, dizziness, syncope, presyncope. Patient encouraged to continue with home BP monitoring and call office if he experiences orthostatic symptoms or persistently elevated BP. On amlodipine and valsartan. Assessment & Plan (04/27/2023 11:59 AM EST): Well controlled on current regimen. Has noted lately that his HR is sometimes in the low 40,50 range while on atenolol. At the same he has noticed fatigue too. Discontinue Atenolol. Monitor BP at home w.o it. Will order an EKG to r/o heart block, TSH. Peripheral vascular disease 04/27/2023 Assessment & Plan (06/29/2023 7:01 PM EST): Recent revascularization 03/23 - with excellent results and improved LLE pain. On ASA, plavix and statin. No ulcers/rest pain Assessment & Plan (04/27/2023 12:00 PM EST): S/p revascularization, percutaneous and stent placed last month in March. Doing well. No active complaints to offer Follows up with Dr Justin. H/O prostate cancer 04/27/2023 Assessment & Plan (06/29/2023 7:06 PM EST): S/p radiation for it. PSA Normal 04/[address] Alaniz and Oncology. Bradycardia 04/27/2023 Assessment & Plan (04/27/2023 12:03 PM EST): Reports bradycardia with fatigue and HR in low 40s sometimes. He has been skipping atenolol every now and then because of it. Will discontinue Atenolol Check TSH, EKG Prostate cancer 04/27/2023 Stage 3 chronic kidney disease 11/19/2022 Assessment & Plan (07/13/2024 1:50 PM EST): Follows with Nephrology- Dr. Thakkar Most Recent eGFR: 47 Creatinine: 1.51 Avoid nephrotoxic agents. Monitor closely. Assessment & Plan (04/21/2024 11:43 AM EST): Follows with Nephrology. Avoid nephrotoxic agents. Monitor closely. Assessment & Plan (01/20/2024 6:45 PM EDT): Follows Nephrology Dr. Thakkar CKD stage 3. Continue to monitor and avoid nephrotoxic agents. Assessment & Plan (12/08/2023 11:50 AM EDT): Stable. Monitor. Assessment & Plan (09/28/2023 9:44 AM EDT): Stable. Check labs Assessment & Plan (06/29/2023 7:03 PM EST): Stable. Due to HTN. Monitor. Assessment & Plan (04/27/2023 12:01 PM EST): CKD 3, due to HTN. Monitor. Cr stable, no change C.w treatment for HTN. Follows Dr Thakkar for CKD. Resolved Problems Problem Noted Date Diagnosed Date Resolved Date Peripheral arterial disease 04/27/2023 04/27/2023 Encounters Date Type Department Care Team Description 12/09/2024 Refill [facility] [address] [place] [address] Qian Son NP Primary hypertension from Last 3 Months Immunizations Immunization Administration Dates Next Due Moderna SARS-CoV-2 Vaccination 06/25/2020 Family History Medical History Relation Name Comments Diabetes Father Heart disease Mother Relation Name Status Comments Father Mother cataract surger y Social History Tobacco Use Types Packs/Day Years Used Date Smoking Tobacco: Every Day Cigarettes 0.3 65 Passive Smoke Exposure: Current Smokeless Tobacco: Never Tobacco Cessation:Ready to Q uit: Not Asked; Counseling Given: Not Answered Comments:Pt down to 4 per day, required to quit smoking before back surgery [...] declined 01/20/2024 How often do you attend taoist or adventist serv ices? Patient declined 01/20/2024 Do you belong to any clubs o r organizations such as taoist groups, unions, fraThermoCeramix or athletic groups, or school groups? Patient [...] any time in the past 12 m [facility], were you homeless or living in a penitentiary (including now)? No 01/20/2024 Sex and Gender Information Value Date Recorded Sex Assigned at Not on file Legal Sex Male 11:33 PM EDT Gender Identity Not on file Sexual Orientation Not on file Last Filed Vital Signs Vital Sign Reading Time Taken Comments Blood Pressure 136/70 07/13/2024 1:16 PM EST Pulse 94 07/13/2024 1:16 PM EST Temperature 36.5 C (97.7 F) 07/13/2024 1:16 PM EST Respiratory Rate 16 07/13/2024 1:16 PM EST Oxygen Saturation 94% 07/13/2024 1:16 PM EST Inhaled Oxygen Concentration - - Weight 91.2 kg (201 lb) 07/13/2024 1:16 PM EST Height 177.8 cm (5' 10 ) 07/13/2024 1:16 PM EST Body Mass Index 28.84 07/13/2024 1:16 PM EST Plan of Treatment Health Maintenance Due Date Last Done Comments Pneumococcal Vaccine: 65+ Ye ars (1 of 2 - PCV) 1964 Medicare Annual Wellness (AWV) 12/07/2024 12/08/2023 , 12/08/2023 Influenza Vaccine (#1) 2025 Insurance [employer] Care Teams Die Maker Bench Stamping Relationship Specialty Start Date End Date Brian Avalos MD [address] [place] [address] PCP - General Family Medicine 01/12/24 Kayley Ward NP [address] [place] [address] Nurse Practitioner Family Medicine 01/12/24
--- OUTSIDE RECORDS SUMMARY | 2025-01-04 13:43 | XMS_ITS | Clinical Summary ---
Author Organization [facility] Address [facility] [id number] [address] [place] [address] Care Team Providers Care Police Magistrate Name Role Phone Unavailable Primary Care Provider Unavailabl e Social History Tobacco Use Types Packs/Day Years Used Date Smoking Tobacco: Never Assessed Comments Unknown Sex and Gender Information Value Date Recorded Sex Assigned at Not on file Legal Sex Female 2:14 PM EST Gender Identity Not on file Sexual Orientation Not on file Plan of Treatment Health Maintenance Due Date Last Done Comments Depression Screening 1957 Tobacco Screening 1957 DTaP,Tdap and Td Vaccines (1 - Tdap) 1964 Zoster (Shingles) Vaccine (1 of 2) 1995 Fall Risk Screening 2010 Influenza Vaccine 01/30/2025 Medical Devices Not on file Insurance [facility] MEDICARE
--- OUTSIDE RECORDS SUMMARY | 2025-01-04 13:43 | XMS_ITS | Encounter Summary ---
Author Organization [facility] Address [address] [place] [address] Care Team Providers Care Bumper Machine Operator Name Role Phone Brian Avalos MD Primary Care Provider [phone] Kayley Ward ORE WASHER Unavailable [phone] Encounter Details Date Type Department Care Team (Late st Contact Info) Description 08/09/2024 Orders Only [facility] [address] [place] [phone] Claire James MD [address] [place] [address] Social History Tobacco Use Types Packs/Day Years [...] How often do you attend uatsdin or yazidism serv ices? Patient declined 01/20/2024 Do you [...] any time in the past 12 m [facility], were you homeless or living in a residential (including now)? No 01/20/2024 Sex and Gender Information Value Date Recorded Sex Assigned at Not on file Legal Sex Male 11:33 PM EDT Gender Identity Not on file Sexual Orientation Not on file documented as of this encounter Plan of Treatment Not on file documented as of this encounter Procedures Procedure Name Priority Date/Time Associated Diagnosis Comments SCANNED LABS Routine 08/09/2024 1:41 PM EDT documented in this encounter Results * SCANNED LABS (08/09/2024 1:41 PM EDT) us Claire James MD LAB CHG PERFORMABLES Final Res ult documented in this encounter Visit Diagnoses Not on filedocumented in this encounter Additional Health Concerns Assessment Noted Time PHQ-9 Depression Total Score: 5 12/08/19 24 11:00 AM EDT documented as of this encounter Care Teams Bumper Machine Operator Relationship Specialty Start Date End Date Brian Avalos MD [address] [place] [address] PCP - General Family Medicine 01/12/24 Kayley Ward NP [address] [place] [address] Nurse Practitioner Family Medicine 01/12/24 documented as of this encounter
--- OUTSIDE RECORDS SUMMARY | 2025-01-04 13:43 | XMS_ITS | Encounter Summary ---
Author Organization [facility] Address [address] [place] [address] Care Team Providers Care Child Care Sitter Name Role Phone Brian Avalos MD Primary Care Provider [phone] Kayley Ward FOSTER PARENT Unavailable [phone] Encounter Details Date Type Department Care Team (Late st Contact Info) Description 09/05/2024 Orders Only [facility] [address] [place] [phone] Claire James MD [address] [place] [address] Social History Tobacco Use Types Packs/Day Years [...] declined 01/20/2024 How often do you attend caodaism or religion serv ices? Patient declined 01/20/2024 Do you belong to any clubs o r organizations such as caodaism groups, unions, fraternal or athletic groups, or [...] any time in the past 12 m [facility], were you homeless or living in [...] Date/Time Associated Diagnosis Comments SCANNED LABS Routine 09/05/2024 2:35 PM EDT documented in this encounter Results * SCANNED LABS (09/05/2024 2:35 PM EDT) us Claire James MD LAB CHG PERFORMABLES Final Res ult documented in this encounter Visit Diagnoses Not on filedocumented in this encounter Additional Health Concerns Assessment Noted Time PHQ-9 Depression Total Score: 5 12/08/19 24 11:00 AM EDT documented as of this encounter Care Teams Child Care Sitter Relationship Specialty Start Date End Date Brian Avalos MD [address] [place] [address] PCP - General Family Medicine 01/12/24 Kayley Ward NP [address] [place] [address] Nurse Practitioner Family Medicine 01/12/24 documented as of this encounter
--- OUTSIDE RECORDS SUMMARY | 2025-01-04 13:44 | XMS_ITS | Clinical Summary ---
Author Organization [facility] Address [address] [place] [address] Phone Care Team Providers Care Coke Handling Supervisor Name Role Phone Shaikh AUBREE Storm Primary Care Provider [phone] Allergies Active Allergy Reactions Criticality Noted Date Comments Ezetimibe GI intolerance,Nausea/vo miting High 04/27/2023 Fgebazc-Eop-Emy Reductase Inhibitors Other Medium 03/30/2023 Muscle/Joint Pain Medications aspirin 81 mg EC tablet Take 1 tablet (81 mg) by mouth once daily. Active ergocalciferol (Vitamin D-2) 1.25 MG (90247 UT) capsule Take 1 capsule (1,250 mcg) by mouth 1 (one) time per week. Active HYDROcodone-acet aminophen ([place]) 7.5-325 mg tablet Take 1 tablet by mouth 3 times a day as needed. Active nitroglycerin (Nitrostat) 0.4 mg SL tabletIndication s:Chest pain, unspecified type Place 1 tablet (0.4 mg) under the tongue every 5 minutes if needed for chest pain. May repeat dose every 5 minutes for up to 3 doses total. 100 tablet 11 08/18/2023 Active amLODIPine (Norvasc) 10 mg tablet Take 1 tablet (10 mg) by mouth once daily in the morning. Take before meals. 05/31/2024 Active clopidogrel (Plavix) 75 mg tablet Take 1 tablet (75 mg) by mouth once daily. 07/09/2024 Active pravastatin (Pravachol) 40 mg tabletIndication s:Mixed hyperlipidemia,B ilateral carotid artery disease, unspecified type Take 1 tablet (40 mg) by mouth once daily at bedtime. 90 tablet 3 09/23/2024 09/24/19 26 Active valsartan (Diovan) 80 mg tabletIndication s:Hypertension, unspecified type Take 1 tablet (80 mg) by mouth once daily. 90 tablet 3 10/06/2024 10/07/19 26 Active Active Problems Problem Noted Date Diagnosed Date BMI 28.0-28.9,adult 08/18/2023 Assessment & Plan (08/30/2024 1:10 PM EDT): Reviewed the merits of healthy lifestyle choices on overall cardiovascular health. 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 Nocturia 06/04/2023 Prostate nodule 06/04/2023 Recurrent UTI 06/04/2023 Umbilical hernia 06/04/2023 UTI symptoms 06/04/2023 Carotid artery disease 06/04/2023 Assessment & Plan (08/30/2024 1:10 PM EDT): Bilateral carotid endarterectomy Managed by local vascular team Chest pressure 06/04/2023 PVD (peripheral vascular disease) 06/04/2023 Assessment & Plan (08/30/2024 1:10 PM EDT): 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 Continued every day tobacco use. Have reviewed the negative cardiovascular impact of nicotine. Continues to decline pharmacological assistance. Bradycardia 04/27/2023 Overview (06/04/2023): Last Assessment & Plan: Reports bradycardia with fatigue and HR in low 40s sometimes. He has been skipping atenolol every now and then because of it. Will discontinue Atenolol Check TSH, EKG H/O prostate cancer 04/27/2023 HLD (hyperlipidemia) 04/27/2023 Overview (06/04/2023): Last Assessment & Plan: Recently started on Pravastatin by Vascular surgery. Check Lipid Panel in one month. Assessment & Plan (08/30/2024 1:09 PM EDT): Moderate intensity statin September 2023 LDL 81, HDL 38 Hypertension 04/27/2023 Overview (06/04/2023): Last Assessment & Plan: Well controlled on current regimen. Has noted lately that his HR is sometimes in the low 40,50 range while on atenolol. At the same he has noticed fatigue too. Discontinue Atenolol. Monitor BP at home w.o it. Will order an EKG to r/o heart block, TSH. Assessment & Plan (08/30/2024 1:09 PM EDT): Optimal in office Prostate cancer (Multi) 04/27/2023 Chronic kidney disease, stage 3b (Multi) 023 Overview (06/04/2023): Last Assessment & Plan: CKD 3, due to HTN. Monitor. Cr stable, no change C.w treatment for HTN. Follows Dr Thakkar for CKD. Assessment & Plan (08/30/2024 1:10 PM EDT): Follows routinely with nephrology September 2024 creatinine 1.7 Resolved Problems Problem Noted Date Diagnosed Date Resolved Date Heart disease 06/04/2023 08/30/2024 Encounters Date Type Department Care Team Description 10/05/2024 Refill [facility] [address] [facility] [address] [place] [address] Chaim Grayson DO Hypertension, unspecified type from Last 3 Months Immunizations Immunization Administration Dates Next Due Moderna SARS-CoV-2 Vaccination 06/25/2020 Family History Medical History Relation Name Comments No Known Problems Father Heart attack Mother Cynthia Elliott Relation Name Status Comments Father Mother Cynthia Elliott Social History Tobacco Use Types Packs/Day Years Used Date Smoking Tobacco: Every Day Cigarettes 0.5 60 Smokeless Tobacco: Never Tobacco Cessation:Ready to Q uit: No; Counseling Given: Yes Comments:Trying to quit Alcohol Use Standard Drinks/Week Comments Never 0 (1 standard drink = 0.6 oz pur e alcohol) Sex and Gender Information Value Date Recorded Sex Assigned at Male 06/09/2023 3:20 PM EST Legal Sex Male 4:46 PM EST Gender Identity Male 06/09/2023 3:20 PM EST Sexual Orientation Straight 06/09/2023 3: 20 PM EST Last Filed Vital Signs Vital Sign Reading Time Taken Comments Blood Pressure 136/68 08/30/2024 11:30 AM EDT Pulse 84 08/30/2024 11:16 AM EDT Temperature - - Respiratory Rate - - Oxygen Saturation - - Inhaled Oxygen Concentration - - Weight 90.3 kg (199 lb) 08/30/2024 11:16 AM EDT Height 177.8 cm (5' 10 ) 08/30/2024 11:16 AM EDT Body Mass Index 28.55 08/30/2024 11:16 AM EDT Plan of Treatment Upcoming Encounters Date Type Department Care Team (Late st Contact Info) Description 08/30/2025 10:00 AM EDT Office Visit [facility] [address] [facility] [address] [place] [address] Chaim Grayson DO [address] [facility] [address] [place] [address] Health Maintenance Due Date Last Done Comments Lipid Panel 1945 Medicare Annual Wellness Vis it (AWV) 1945 Hepatitis C Screening 1963 CKD: Urine Protein Screening 1964 Pneumococcal Vaccine (1 of 2 - PCV) 1964 DTaP/Tdap/Td Vaccines (1 - Tdap) 1967 Lung Cancer Screening 1995 Zoster Vaccines (1 of 2) 1995 RSV High Risk: (Elderly (60+ ) or Population) (1 - 1-dose 75+ series) 2020 COVID-19 Vaccine (3 - 2023-2 5 season) 2024 07/26/2020, 06/25/2020 Influenza Vaccine (#1) 2025 HIB Vaccines Aged Out No longer eligi ble based on patient's age to complete this topic HPV Vaccines Aged Out No longer eligi ble based on patient's age to complete this topic Hepatitis A Vaccines Aged Out No long er eligible based on patient's age to complete this topic Hepatitis B Vaccines Aged Out No long er eligible based on patient's age to complete this topic IPV Vaccines Aged Out No longer eligi ble based on patient's age to complete this topic Meningococcal Vaccine Aged Out No ata sumanth eligible based on patient's age to complete this topic Rotavirus Vaccines Aged Out No longer eligible based on patient's age to complete this topic Insurance [employer] Care Teams Coke Handling Supervisor Relationship Specialty Start Date End Date Shaikh Storm MD PCP - General Internal Medicine 06/04/23
--- OUTSIDE RECORDS SUMMARY | 2025-01-04 13:44 | XMS_ITS | Encounter Summary ---
Author Organization [facility] Address [address] [place] [address] Care Team Providers Care Grain Distributor Name Role Phone Shaikh AURBEE Storm Primary Care Provider Brian Avalos MD Primary Care Provider [phone] Kayley Ward NP Unavailable [phone] Encounter Details Date Type Department Care Team (Late st Contact Info) Description 10/02/2023 Orders Only [facility] [address] [place] [id number] Shaikh Storm MD [address] [place] [address] Social History Tobacco Use Types Packs/Day Years [...] Answer Date Recorded Patient Health Questionnaire-2 Score 6 09/28/2023 Sex and Gender Information Value Date Recorded Sex Assigned at Not on file Legal Sex Male 11:33 PM EDT Gender Identity Not on file Sexual Orientation Not on file documented as of this encounter Plan of Treatment Not on file documented as of this encounter Procedures Procedure Name Priority Date/Time Associated Diagnosis Comments HEMOGLOBIN A1C Routine 10/01/2023 9:43 AM EDT documented in this encounter Results * Hemoglobin A1c (10/01/2023 9:43 AM EDT) Blood Venous blood specimen / Unknown Shaikh Dotty MAK LAB BLOOD ORDERABLES Final Resu lt documented in this encounter Visit Diagnoses Not on filedocumented in this encounter Additional Health Concerns Assessment Noted Time PHQ-9 Depression Total Score: 13 024 9:17 AM EDT documented as of this encounter Care Teams Grain Distributor Relationship Specialty Start Date End Date Shaikh Storm MD [address] [place] [address] PCP - General Internal Medicine 09/28/23 01/11/24 Brian Avalos MD [address] [place] [address] PCP - General Family Medicine 01/12/24 Kayley Ward NP [address] [place] [address] Nurse Practitioner Family Medicine 01/12/24 documented as of this encounter
--- OUTSIDE RECORDS SUMMARY | 2025-01-04 13:44 | XMS_ITS | Encounter Summary ---
Author Organization [facility] Address [address] [place] [address] Care Team Providers Care Ed Case Manager Name Role Phone Shaikh AUBREE Storm Primary Care Provider Shaikh AUBREE Storm Primary Care Provider [phone] Brian Avalos MD Primary Care Provider Kayley Ward NP Unavailable [phone] Encounter Details Date Type Department Care Team (Late st Contact Info) Description 05/12/2023 Orders Only [facility] [address] [place] [address] Claire James MD [address] [place], [place] [address] Social History Tobacco Use Types Packs/Day Years Used Date Smoking Tobacco: Every Day Cigarettes 0.3 65 Smokeless Tobacco: Never Comments:Thinking about quit ting Alcohol Use Standard Drinks/Week Comments Not Currently 0 (1 standard drink = 0.6 oz pur e alcohol) former Sex and Gender Information Value Date Recorded Sex Assigned at Not on file Legal Sex Male 11:33 PM EDT Gender Identity Not on file Sexual Orientation Not on file documented as of this encounter Plan of Treatment Not on file documented as of this encounter Procedures Procedure Name Priority Date/Time Associated Diagnosis Comments MISCELLANEOUS LAB TEST Routine 04/21/2023 2:31 PM EST documented in this encounter Results * - Miscellaneous Test (04/21/2023 2:31 PM EST) us Claire James MD LAB BLOOD ORDERABLES Final Res ult documented in this encounter Visit Diagnoses Not on filedocumented in this encounter Care Teams Ed Case Manager Relationship Specialty Start Date End Date Shaikh Storm MD PCP - General Internal Medicine 06/01/22 09/27/23 Shaikh Storm MD [address] [place] [address] PCP - General Internal Medicine 09/28/23 01/11/24 Brian Avalos MD [address] [place] [address] PCP - General Family Medicine 01/12/24 Kayley Ward NP [address] [place] [address] Nurse Practitioner Family Medicine 01/12/24 documented as of this encounter
--- OUTSIDE RECORDS SUMMARY | 2025-01-04 13:44 | XMS_ITS | Encounter Summary ---
Author Organization [facility] Address [address] [place] [address] Phone Care Team Providers Care Dice Table Person Name Role Phone Shaikh AUBREE Storm Primary Care Provider [phone] Encounter Details Date Type Department Care Team (Late st Contact Info) Description 03/09/2023 Scanned Document [facility] [address] [place] [phone] Scanning, Generic Provider Social History Tobacco Use Types Packs/Day Years Used Date Smoking Tobacco: Never Assessed Sex and Gender Information Value Date Recorded Sex Assigned at Male 06/09/2023 3:20 PM EST Legal Sex Male 4:46 PM EST Gender Identity Male 06/09/2023 3:20 PM EST Sexual Orientation Straight 06/09/2023 3: 20 PM EST documented as of this encounter Plan of Treatment Upcoming Encounters Date Type Department Care Team (Late st Contact Info) Description 08/30/2025 10:00 AM EDT Office Visit [facility] [address] [facility] [address] [place] [address] Chaim Grayson DO [address] [facility] [address] [place], [place] [phone] documented as of this encounter Visit Diagnoses Not on filedocumented in this encounter Care Teams Dice Table Person Relationship Specialty Start Date End Date Shaikh Storm MD PCP - General Internal Medicine 06/04/23 documented as of this encounter
--- OUTSIDE RECORDS SUMMARY | 2025-01-04 13:44 | XMS_ITS | Encounter Summary ---
Author Organization [facility] Address [address] [place] [address] Phone Care Team Providers Care Chief Port Director Name Role Phone Shaikh AUBREE Storm Primary Care Provider [phone] Encounter Details Date Type Department Care Team (Late st Contact Info) Description 04/16/2023 Scanned Document [facility] [address] [place] [phone] Scanning, Generic Provider Social History Tobacco Use [...] Description 08/30/2025 10:00 AM EDT Office Visit [facility] [address] [facility] [address] [place] [address] Chaim Grayson DO [address] [facility] [address] [place], [place] [phone] Scheduled Orders Name Type Priority Associated Diagnoses Orde r Schedule ULTRASOUND - ONBASE SCAN Imaging Ordered: 04/16/2023 documented as of this encounter Visit Diagnoses Not on filedocumented in this encounter Care Teams Chief Port Director Relationship Specialty Start Date End Date Shaikh Storm MD PCP - General Internal Medicine 06/04/23 documented as of this encounter
--- OUTSIDE RECORDS SUMMARY | 2025-01-04 13:44 | XMS_ITS | Encounter Summary ---
Author Organization [facility] Address [address] [place] [address] Phone Care Team Providers Care Instrument Sterilizer Name Role Phone Shaikh AUBREE Storm Primary Care Provider [phone] Encounter Details Date Type Department Care Team (Late st Contact Info) Description 08/10/2024 Scanned Document [facility] [address] [place] [phone] Scanning, Generic Provider Social History Tobacco Use Types Packs/Day Years Used Date Smoking Tobacco: Every Day Cigarettes 0.5 60 Smokeless Tobacco: Never Comments:Trying to quit Alcohol Use Standard Drinks/Week Comments Not Currently [...] Description 08/30/2025 10:00 AM EDT Office Visit [facility] [address] [facility] [address] [place] [address] Chaim Grayson DO [address] [facility] [address] [place] [address] documented as of this encounter Visit Diagnoses Not on filedocumented in this encounter Additional Health Concerns Assessment Noted Time A fall risk assessment has been complete d for the patient 08/18/2023 11:52 AM EDT documented as of this encounter Care Teams Instrument Sterilizer Relationship Specialty Start Date End Date Shaikh Storm MD PCP - General Internal Medicine 06/04/23 documented as of this encounter
--- OUTSIDE RECORDS SUMMARY | 2025-01-04 13:44 | XMS_ITS | Encounter Summary ---
Author Organization [facility] Address [address] [place] [address] Phone Care Team Providers Care Upsetter Helper Name Role Phone Shaikh AUBREE Storm Primary Care Provider [phone] Encounter Details Date Type Department Care Team (Late st Contact Info) Description 05/27/2023 Scanned Document [facility] [address] [place] [address] Scanning, Generic Provider Social History Tobacco Use [...] Description 08/30/2025 10:00 AM EDT Office Visit [facility] [address] [facility] [address] [place] [address] Chaim Grayson DO [address] [facility] [address] [place], [place] [address] documented as of this encounter Visit Diagnoses Not on filedocumented in this encounter Care Teams Upsetter Helper Relationship Specialty Start Date End Date Shaikh Storm MD PCP - General Internal Medicine 06/04/23 documented as of this encounter
--- OUTSIDE RECORDS SUMMARY | 2025-01-04 13:44 | XMS_ITS | Encounter Summary ---
Author Organization [facility] Address [address] [place] [address] Care Team Providers Care Curing Press Operator Name Role Phone Shaikh AUBREE Storm Primary Care Provider [phone] Ronaldo Alaniz MD Unavailable [phone] Constance Durand Unavailable Unavailable Source Comments In the event this information is protected by the Federal Confidentiality of Alcohol and Drug AbusePatient Records regulations: The Federal rules restrict any use of the information to criminally investigate or prosecute any alcohol or drug abuse patient.[facility] Encounter Details Date Type Department Care Team (Late st Contact Info) Description 11/29/2024 Patient Msg Radiation Oncology [address] [place] [address] Hyun Raza MD [address] [place] [address] Appointment Cancellation Request Social History Tobacco Use Types Packs/Day Years Used Date Smoking Tobacco: Every Day Cigarettes 1 60 Smokeless Tobacco: Never Comments:2 ppd x 20 yrs, 1 p pd x 40 yrs Alcohol Use Standard Drinks/Week Comments Not Currently 0 (1 standard drink = 0.6 oz pur e alcohol) PHQ-2 Answer Date Recorded PHQ-2 score 2 12/14/2023 Area Deprivation Index Answer Date Emigdio rded National Score (1-100), lower number is lower ri sk 61 11/18/2022 State Score (1-10), lower number is lower risk 4 11/18/2022 Data from: https://www.neighborhoodatlas.medicine.[facility]/. Last address used for calculation [address] 11/18/2022 Sex and Gender Information Value Date Recorded Sex Assigned at Male 01/15/2023 11:44 AM EDT Legal Sex Male 11:51 AM EDT Gender Identity Male 01/15/2023 11:44 AM EDT Sexual Orientation Straight 01/15/2023 11 :44 AM EDT documented as of this encounter Plan of Treatment Upcoming Encounters Date Type Department Care Team (Late st Contact Info) Description 01/18/2025 9:45 AM EDT Office Visit Radiation Oncology [address] [place] [address] [place] [address] Hyun Raza MD [address] [place] [address] [place] [address] 1 yr rv documented as of this encounter Visit Diagnoses Not on filedocumented in this encounter Care Teams Curing Press Operator Relationship Specialty Start Date End Date Shaikh Storm MD [address] [place] [address] PCP - General Primary Care 12/06/21 Ronaldo Alaniz MD [address] [place] [address] Referring Urology 12/06/21 Constance Durand LSW Mobile Practice Lead 03/04/22 documented as of this encounter
--- OUTSIDE RECORDS SUMMARY | 2025-01-04 13:44 | XMS_ITS | Encounter Summary ---
Author Organization [facility] Address [address] [place] [address] Care Team Providers Care Used Car Salesperson Name Role Phone Shaikh AUBREE Storm Primary Care Provider [phone] Ronaldo Alaniz MD Unavailable [phone] Constance Durand Unavailable Unavailable Source Comments In the event this information is protected by the Federal Confidentiality of Alcohol and Drug AbusePatient Records regulations: The Federal rules restrict any use of the information to criminally investigate or prosecute any alcohol or drug abuse patient.[facility] Encounter Details Date Type Department Care Team (Late st Contact Info) Description 11/29/2024 Patient Msg Radiation Oncology [address] [facility] [address] Hyun Raza MD [address] [place] [address] Appointment Cancellation Request Social History Tobacco [...] is lower risk 4 11/18/2022 Data from: https://www.neighborhoodatlas.medicine.[facility]/. Last address used for calculation [address] [...] 9:45 AM EDT Office Visit Radiation Oncology [address] [place] [address] [place] [address] Hyun Raza MD [address] [place] [address] [place] [address] 1 yr rv documented as of this encounter Visit Diagnoses Not on filedocumented in this encounter Care Teams Used Car Salesperson Relationship Specialty Start Date End Date Shaikh Storm MD [address] [place] [address] PCP - General Primary Care 12/06/21 Ronaldo Alaniz MD [address] [place] [address] Referring Urology 12/06/21 Constance Durand LSW Commercial Sheet Metal Foreman 03/04/22 documented as of this encounter
--- OUTSIDE RECORDS SUMMARY | 2025-01-04 13:44 | XMS_ITS | Encounter Summary ---
Author Organization [facility] Address [address] [place] [address] Care Team Providers Care Magnetic Prospector Name Role Phone Shaikh AUBREE Storm Primary Care Provider [phone] Shaikh AUBREE Storm Primary Care Provider Brian Avalos MD Primary Care Provider [phone] Kayley Ward NP Unavailable Encounter Details Date Type Department Care Team (Late st Contact Info) Description 05/21/2023 External Result Encounter [facility] External Department Unsolicited Shaikh Storm MD [address] [place] [address] Social History Tobacco Use Types Packs/Day Years [...] Procedure Name Priority Date/Time Associated Diagnosis Comments ECG 12-LEAD 05/21/2023 11:42 AM EST documented in this encounter Results * ECG 12 lead (05/21/2023 11:42 AM EST) 05/21/2023 11:4 2 AM [facility] - 05/22/2023 11:09 AM [place] [id number] Electrocardiograph Report Signed Patient: Vasyl Broussard MR#: [id number] : 1945 Acct:[id number] Age/Sex: 77 / M ADM Date: 05/21/23 Loc: EL Room: Type: REG CLI Attending Dr: Shaikh Dotty MAK Ordering Provider: [...] undetermined Abnormal ECG Confirmed by DEANN [facility] ([id number] on 05/21/2023 5:04:18 PM Referred By: Electronically Signed By:BARBARA ZACARIAS MD [facility] Transcribed By: MUS Signed By Chaim Zacarias MD 05/21/23 1704 Procedure Note Gabrielle Zacarias MD - 05/22/2023 [place] [id number] Electrocardiograph Report Signed Patient: Vasyl Broussard RMR#: [id number] : 6Acct:[id number] Age/Sex: 77 / MADM Date: 05/21/23 Loc: EL Room:Type: REG CLI Attending Dr: Shaikh Dotty MAK Ordering Provider: [...] undetermined Abnormal ECG Confirmed by DEANN MAK FACBARBARA Newman ([id number]) on 05/21/2023 5:04:18 PM Referred By: Electronically Signed By:BARBARA ZACARIAS MD, FACC Transcribed By: MUS Signed By Chaim Zacarias MD 05/21/23 0019 us Shaikh Dotty MAK ECG ORDERABLES Final Result [facility] [address] [place] [address], documented in this encounter Visit Diagnoses Not on filedocumented in this encounter Care Teams Magnetic Prospector Relationship Specialty Start Date End Date Shaikh Storm MD PCP - General Internal Medicine 06/01/22 09/27/23 Shaikh Storm MD [address] [place] [address] PCP - General Internal Medicine 09/28/23 01/11/24 Brian Avalos MD [address] [place] [address] PCP - General Family Medicine 01/12/24 Kayley Ward NP [address] [place] [address] Nurse Practitioner Family Medicine 01/12/24 documented as of this encounter
--- OUTSIDE RECORDS SUMMARY | 2025-01-04 13:44 | XMS_ITS | Encounter Summary ---
Author Organization [facility] Address [address] [place] [address] Care Team Providers Care Odd Job Worker Name Role Phone Shaikh AUBREE Storm Primary Care Provider [phone] Brian Avalos MD Primary Care Provider [phone] Kayley Ward NP Unavailable [phone] Encounter Details Date Type Department Care Team (Late st Contact Info) Description 10/01/2023 Orders Only [facility] [address] [place] [address] Shaikh Storm MD [address] [place] [address] Social History Tobacco Use Types Packs/Day Years [...] Date/Time Associated Diagnosis Comments SCANNED LABS Routine 10/01/2023 2:21 PM EDT SCANNED LABS Routine 10/01/2023 2:06 PM EDT documented in this encounter Results * SCANNED LABS (10/01/2023 2:21 PM EDT) us Shaikh Dotty [facility] CHG PERFORMABLES Final Resu lt * SCANNED LABS (10/01/2023 2:06 PM EDT) us Shaikh Dotty [facility] CHG PERFORMABLES Final Resu lt documented in this encounter Visit Diagnoses Not on filedocumented in this encounter Additional Health Concerns Assessment Noted Time PHQ-9 Depression Total Score: 13 024 9:17 AM EDT documented as of this encounter Care Teams Odd Job Worker Relationship Specialty Start Date End Date Shaikh Storm MD [address] [place] [address] PCP - General Internal Medicine 09/28/23 01/11/24 Brian Avalos MD [address] [place] [address] PCP - General Family Medicine 01/12/24 Kayley Ward NP [address] [place] [address] Nurse Practitioner Family Medicine 01/12/24 documented as of this encounter
--- OUTSIDE RECORDS SUMMARY | 2025-01-04 13:44 | XMS_ITS | Encounter Summary ---
Author Organization [facility] Address [address] [place] [address] Phone Care Team Providers Care Pressure Testing Technician Name Role Phone Shaikh AUBREE Storm Primary Care Provider [phone] Encounter Details Date Type Department Care Team (Late st Contact Info) Description 03/23/2023 Scanned Document [facility] [address] [place] [phone] Scanning, Generic Provider Social History Tobacco Use [...] Description 08/30/2025 10:00 AM EDT Office Visit [facility] [address] [facility] [address] [place] [address] Chaim Grayson DO [address] [place], [place] [id number] documented as of this encounter Visit Diagnoses Not on filedocumented in this encounter Care Teams Pressure Testing Technician Relationship Specialty Start Date End Date Shaikh Storm MD PCP - General Internal Medicine 06/04/23 documented as of this encounter
--- OUTSIDE RECORDS SUMMARY | 2025-01-04 13:44 | XMS_ITS | Encounter Summary ---
Author Organization [facility] Address [address] [place] [address] Care Team Providers Care Group Director Experience Name Role Phone Shaikh AUBREE Storm Primary Care Provider Shaikh AUBREE Storm Primary Care Provider Brian Avalos MD Primary Care Provider Kayley Ward NP Unavailable [phone] Encounter Details Date Type Department Care Team (Late st Contact Info) Description 08/03/2023 Orders Only [facility] [address] [place] [address] Shaikh Storm MD [address] [place] [address] Social History Tobacco Use Types Packs/Day Years [...] Date Recorded Patient Health Questionnaire-2 Score 0 06/29/2023 Sex and Gender Information Value Date Recorded Sex Assigned at Not on file Legal Sex Male 11:33 PM EDT Gender Identity Not on file Sexual Orientation Not on file documented as of this encounter Plan of Treatment Not on file documented as of this encounter Procedures Procedure Name Priority Date/Time Associated Diagnosis Comments CULTURE, URINE, ROUTINE Routine 07/07/2023 1:09 PM EST documented in this encounter Results * Urine culture (07/07/2023 1:09 PM EST) Urine Urine specimen obtained by clean catch procedure / Unknown Shaikh Dotty [facility]Y [facility] Final Result documented in this encounter Visit Diagnoses Not on filedocumented in this encounter Care Teams Group Director Experience Relationship Specialty Start Date End Date Shaikh Storm MD PCP - General Internal Medicine 06/01/22 09/27/23 Shaikh Storm MD [address] [place] [address] PCP - General Internal Medicine 09/28/23 01/11/24 Brian Avalos MD [address] [place] [address] PCP - General Family Medicine 01/12/24 Kayley Ward NP [address] [place] [address] Nurse Practitioner Family Medicine 01/12/24 documented as of this encounter
--- OUTSIDE RECORDS SUMMARY | 2025-01-04 13:44 | XMS_ITS | Encounter Summary ---
Author Organization [facility] Address [address] [place] [id number] Phone Care Team Providers Care Hand Heel Seat Fitter Name Role Phone Shaikh AUBREE Storm Primary Care Provider [phone] Encounter Details Date Type Department Care Team (Late st Contact Info) Description 01/14/2023 Scanned Document [facility] [address] [place] [address] Conversion, Onbase Social History Tobacco Use Types Packs/Day Years [...] Office Visit [facility] [address] [facility] [address] [place] [address] Chaim Grayson DO [address] [facility] [address] [place] [address] documented as of this encounter Visit Diagnoses Not on filedocumented in this encounter Care Teams Hand Heel Seat Fitter Relationship Specialty Start Date End Date Shaikh Storm MD PCP - General Internal Medicine 06/04/23 documented as of this encounter
--- OUTSIDE RECORDS SUMMARY | 2025-01-04 13:44 | XMS_ITS | Clinical Summary ---
Author Organization [facility] Address [address] [place], [place] [address] Care Team Providers Care Insurance Claims Specialist Name Role Phone Shaikh AUBREE Storm Primary Care Provider [phone] Ronaldo Alaniz MD Unavailable [phone] Constance Durand Unavailable Unavailable Allergies No known active allergies Medications aspirin 81 mg cap Take by mouth. 1 Active pravastatin (PRAVACHOL) 10 mg tablet pravastatin 10 mg tablet 1 Active amLODIPine (NORVASC) 10 mg tablet amlodipine 10 mg tablet 1 Active baclofen (LIORESAL) 10 mg tablet baclofen 10 mg tablet 2 Active ergocalciferol, vitamin D2, (VITAMIN D2 ORAL) Take by mouth. Activ e oxyCODONE IR (ROXICODONE) 5 mg immediate release tablet TAKE 1 TO 2 TABLETS BY MOUTH EVERY 6 HOURS NEEDED for up to 7 (SEVEN) days 4 Active Active Problems Problem Noted Date Diagnosed Date Stage 3 chronic kidney disease 11/19/2022 Prostate cancer 11/18/2022 Encounters Date Type Department Care Team Description 11/29/2024 Patient Msg Radiation Oncology [address] [place] [address] Hyun Raza MD Appointment Cancellation Request 11/29/2024 Patient Msg Radiation Oncology [address] [place] [address] [phone] Hyun Raza MD Appointment Cancellation Request 11/29/2024 Patient Msg Radiation Oncology [address] [facility] [place] [address] Hyun Raza MD Appointment Cancellation Request from Last 3 Months Immunizations Immunization Administration Dates Next Due COVID-19 original vaccine, f ull dose, monovalent (MODERNA) 07/26/2020,06/28/2020 Family History Medical History Relation Comments Ovarian cancer Sister Relation Status Comments Sister Social History Tobacco Use Types Packs/Day Years Used Date Smoking Tobacco: Every Day Cigarettes 1 60 Smokeless Tobacco: Never Tobacco Cessation:Ready to Q uit: Not Asked; Counseling Given: Not Answered Comments:2 ppd x 20 yrs, 1 ppd x 40 yrs Alcohol Use Standard Drinks/Week Comments Not Currently 0 (1 standard drink = 0.6 oz pur e alcohol) PHQ-2 Answer Date Recorded PHQ-2 score 2 12/14/2023 Area Deprivation Index Answer Date Emigdio rded National Score (1-100), lower number is lower ri sk 61 11/18/2022 State Score (1-10), lower number is lower risk 4 11/18/2022 Data from: https://www.neighborhoodatlas.medicine[facility]/. Last address used for calculation [address] 11/18/2022 Sex and Gender Information Value Date Recorded Sex Assigned at Male 01/15/2023 11:44 AM EDT Legal Sex Male 11:51 AM EDT Gender Identity Male 01/15/2023 11:44 AM EDT Sexual Orientation Straight 01/15/2023 11 :44 AM EDT Last Filed Vital Signs Vital Sign Reading Time Taken Comments Blood Pressure 137/76 12/15/2023 2:33 PM EDT Pulse 86 12/15/2023 2:33 PM EDT Temperature 36.6 C (97.8 F) 12/15/2023 2:33 PM EDT Respiratory Rate 16 12/15/2023 2:33 PM EDT Oxygen Saturation 98% 12/15/2023 2:33 PM EDT Inhaled Oxygen Concentration - - Weight 86.9 kg (191 lb 9.3 oz) 12/15/2023 2:33 P M EDT Height 177.8 cm (5' 10 ) 06/12/2023 11:11 AM EST Body Mass Index 27.49 06/12/2023 11:11 AM EST Plan of Treatment Upcoming Encounters Date Type Department Care Team (Late st Contact Info) Description 01/18/2025 9:45 AM EDT Office Visit Radiation Oncology [address] [place] [address] Hyun Raza MD [address] [place] [address] 1 yr rv Health Maintenance Due Date Last Done Comments Annual PCP Team Chronic Dise ase Visit 1963 Anxiety Screening 1963 Depression Screening 1963 DTaP,Tdap,Td Vaccine (1 - Tdap) 1964 Pneumococcal Vaccine: 50+ (1 of 2 - PCV) 1964 Shingrix Vaccine (1 of 2) 1995 RSV Vaccine (1 - 1-dose 75+ series) 2020 Advance Directive Discussion 06/01/2024 Medicare Advantage Annual We llness Visit 06/01/2024 Serum Creatinine 11/17/2024 11/18/2023, 10/2023, 10/01/2023, Additional history exists Influenza Vaccine (#1) 2025 Diabetes Screening 11/17/2026 11/18/2023, 0 11/05/2023, 10/01/2023, Additional history exists Insurance [employer] Care Teams Insurance Claims Specialist Relationship Specialty Start Date End Date Shaikh Storm MD [address] [place] [address] PCP - General Primary Care 12/06/21 Ronaldo Alaniz MD [address] [place] [address] Referring Urology 12/06/21 Constance Durand LSW Mid Teacher 03/04/22
--- OUTSIDE RECORDS SUMMARY | 2025-01-04 13:44 | XMS_ITS | Encounter Summary ---
Author Organization [facility] Address [address] [place] [address] Care Team Providers Care Flight Superintendent Name Role Phone Shaikh AUBREE Storm Primary Care Provider [phone] Ronaldo Alaniz MD Unavailable [phone] Constance Durand Unavailable Unavailable Source Comments In the event this information is protected by the Federal Confidentiality of Alcohol and Drug AbusePatient Records regulations: The Federal rules restrict any use of the information to criminally investigate or prosecute any alcohol or drug abuse patient.[facility] Encounter Details Date Type Department Care Team (Late st Contact Info) Description 11/29/2024 Patient Msg Radiation Oncology [address] [facility] [place] [address] Hyun Raza MD [address] [place] [address] Appointment Cancellation Request Social History Tobacco [...] is lower risk 4 11/18/2022 Data from: https://www.neighborhoodatlas.medicine.[facility]/. Last address used for calculation [address] [...] 9:45 AM EDT Office Visit Radiation Oncology [address] [place] [address] [place] [address] Hyun Raza MD [address] [place] [address] [place] [address] 1 yr rv documented as of this encounter Visit Diagnoses Not on filedocumented in this encounter Care Teams Flight Superintendent Relationship Specialty Start Date End Date Shaikh Storm MD [address] [place] [address] PCP - General Primary Care 12/06/21 Ronaldo Alaniz MD [address] [place] [address] Referring Urology 12/06/21 Constance Durand LSW Residential Supervisor 03/04/22 documented as of this encounter
--- OUTSIDE RECORDS SUMMARY | 2025-01-04 13:44 | XMS_ITS | Encounter Summary ---
Author Organization [facility] Address [address] [place] [address] Phone Care Team Providers Care Anode Worker Name Role Phone Shaikh AUBREE Storm Primary Care Provider [phone] Encounter Details Date Type Department Care Team (Late st Contact Info) Description 05/21/2023 Scanned Document [facility] [address] [place] [phone] Scanning, Generic Provider Social History Tobacco Use [...] Description 08/30/2025 10:00 AM EDT Office Visit [facility] [address] [facility] [address] [place] [address] Chaim Grayson DO [address] [facility] [address] [place], [place] [phone] documented as of this encounter Visit Diagnoses Not on filedocumented in this encounter Care Teams Anode Worker Relationship Specialty Start Date End Date Shaikh Storm MD PCP - General Internal Medicine 06/04/23 documented as of this encounter
--- OUTSIDE RECORDS SUMMARY | 2025-01-04 13:44 | XMS_ITS | Clinical Summary ---
Author Organization [facility] Address [address] [place] [place] [address] Care Team Providers Care Stratigraphy Teacher Name Role Phone Shaikh AUBREE Storm Primary Care Provider [phone] Allergies Active Allergy Reactions Criticality Noted Date Comments Ezetimibe GI intolerance High 04/27/2023 Other reaction(s): Nausea/vomiting Phsibls-Anf-Vrg Reductase Inhibitors Other Medium 03/30/2023 Muscle/Joint Pain Other Reaction(s): lipitor Medications valsartan (Diovan) 80 mg tablet Take 80 mg by mouth in the morning. 06/04/2023 Active pravastatin (Pravachol) 10 mg tablet Take 10 mg by mouth at bedtime. 06/27/2023 Active amLODIPine (Norvasc) 10 mg tablet Take 1 tablet by mouth in the morning. 03/22/2021 Active baclofen (Lioresal) 10 mg tablet Take 10 mg by mouth at bedtime. 08/17/2023 Active ergocalciferol (Vitamin D-2) 1.25 MG (80433 Units) capsule Take 1,250 mcg by mouth 1 (one) time per week. Active varenicline (Chantix) 0.5 mg tablet Take 0.5 mg by mouth in the morning and at bedtime. Take with full glass of water. Active aspirin 81 mg capsuleIndicati ons:PAD (peripheral artery disease) Take 81 mg by mouth in the morning. Restart on Thursday11/22/2023 30 capsule 11/18/2023 Active nitroglycerin (Nitrostat) 0.4 mg SL tablet Refills(s) 0 09/18/2023 Active HYDROcodone-nat taminophen (Ganado) 7.5-325 mg tablet 1 tablet. 02/06/2023 Active omeprazole (PriLOSEC) [address] capsule TAKE 1 CAPSULE BY MOUTH IN THE MORNING BEFORE MEALS DO NOT CRUSH OR CHEW 11/26/2023 Active clopidogrel (Plavix) 75 mg tablet Take 1 tablet by mouth in the morning. 07/09/2024 Active Active Problems Problem Noted Date Diagnosed Date S/P lumbar laminectomy 11/17/2023 Age-related nuclear cataract of left eye 024 Nuclear senile cataract 09/28/2023 Elevated random blood glucose level 09/28/2023 Overview (11/05/2023): Last Assessment & Plan: Elevated random blood glucose levels when he had labs earlier this year. Check A1C. Gastroesophageal reflux disease without esophagi tis 09/28/2023 Overview (11/05/2023): Last Assessment & Plan: Reports metallic taste in mouth, early satiety and mild abdominal discomfort. Trial of Omerpazole. Follow up in 2 months. Unintentional weight change 09/28/2023 Overview (11/05/2023): Last Assessment & Plan: Weight loss of 7 lbs in 3 months. Reports feeling tired. Check TSH. Lumbar stenosis with neurogenic claudication 07/2023 Overview (11/05/2023): Last Assessment & Plan: Recommended surgery by NS. He is planning to go ahead with it. Pain is persistent, unchanged. 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 Nuclear stress 2022 - normal C/w ASA, plavix and statin Chronic low back pain 06/29/2023 Overview (11/05/2023): Last Assessment & Plan: Chronic LBP with claudication on ambulation. His symptoms were presumed to be multifactorial and claudication resulting from vascular insufficiency along with neurological claudication. His left LE pain has sig improved since vascular surgery in 03/23. He continues to exp pain in low back, with radiation to b/l hips on prolonged ambulation. Patient is on Ganado for chronic pain. He was evaluated by NS at [facility] and it seemed like they were concerned about possible opioid induced hyperalgesia. Patient has been trying to wean himself off of Ganado but if he does not use it [...] foraminal stenosis Will refer to NS at [facility]. Tobacco abuse 06/29/2023 Overview (11/05/2023): Last Assessment & Plan: He is using Nicotine patches currently. Trying to quite smoking. Will call in [email or web address] for the patient. Patient counseled on smoking/tobacco [...] minutes were spent on Smoking/Tobacco use counseling. Anxiety 06/04/2023 BPH with urinary obstruction 06/04/2023 Chest pressure 06/04/2023 Chronic pain disorder 06/04/2023 Chronic prostatitis 06/04/2023 Feeling of incomplete bladder emptying Erectile dysfunction 06/04/2023 Gross hematuria 06/04/2023 Carotid artery disease 06/04/2023 CVA (cerebral vascular accident) 06/04/2023 Overview (11/05/2023): Last Assessment & Plan: Prior hx of ischemic CVA. No residual deficit. On ASA, statin. Heart disease 06/04/2023 PAD (peripheral artery disease) 06/04/2023 Overview (11/05/2023): Last Assessment & Plan: On ASA, Plavix and statin. Left leg revascularization 2022 at [facility]. 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 He has been skipping atenolol every now and then because of it. Will discontinue Atenolol Check TSH, EKG Last Assessment & Plan: Reports bradycardia with fatigue and HR in low 40s sometimes. He has been skipping atenolol every now and then because of it. Will discontinue Atenolol Check TSH, EKG H/O prostate cancer 04/27/2023 Overview (11/05/2023): Last Assessment & Plan: S/p radiation for it. PSA Normal 04/[address] Alaniz and Oncology. Hypertension 04/27/2023 Overview (11/05/2023): Last Assessment & Plan: Well controlled on current regimen. Has noted lately that his HR is sometimes in the low 40,50 range while on atenolol. At the same he has noticed fatigue too. Discontinue Atenolol. Monitor BP at home w.o it. Will order an EKG to r/o heart block, TSH. Last Assessment & Plan: C/w amlodipine. At goal. Monitor. Peripheral vascular disease 04/27/2023 Overview (11/05/2023): Last Assessment & Plan: Recent revascularization 03/23 - with excellent results and improved LLE pain. On ASA, plavix and statin. No ulcers/rest pain HLD (hyperlipidemia) 04/27/2023 Overview (11/05/2023): Last Assessment & Plan: Recently started on Pravastatin by Vascular surgery. Check Lipid Panel in one month. Last Assessment & Plan: On pravastatin Check lipid panel . Stage 3 chronic kidney disease 11/19/2022 Overview (11/05/2023): Last Assessment & Plan: CKD 3, due to HTN. Monitor. Cr stable, no change C.w treatment for HTN. Follows Dr Thakkar for CKD. Last Assessment & Plan: Stable. Check labs Prostate cancer 11/18/2022 Intermittent claudication 03/04/2021 Family History Medical History Relation Name Comments Diabetes Father Javier Broussard Hypertension Mother Cynthia Elliott Relation Name Status Comments Father Javier Broussard Mother Cynthia Elliott Social History Tobacco Use Types Packs/Day Years Used Date Smoking Tobacco: Every Day Cigarettes 0.3 60 Passive Smoke Exposure: Past Smokeless Tobacco: Never Alcohol Use Standard Drinks/Week Comments Not Currently 0 (1 standard drink = 0.6 oz pur e alcohol) Have not drank for years [facility] Utilities Answer Date Recorded In the past 12 months has th e [employer], gas, oil, or water [employer] threatened to shut off services in your home? No 01/12/2024 Humiliation, Afraid, Rape, and Kick questionnair e Answer Date Recorded Within the last year, have y ou been afraid of your partner or ex-partner? No 01/12/2024 Emotionally Abused Not on file 01/12/2024 Physically Abused Not on file 01/12/2024 Sexually Abused Not on file 01/12/2024 Overall Financial Resource Strain (CARDIA) Answe r Date Recorded How hard is it for you to pa y for the very basics like food, housing, medical care, and heating? Not hard at all 01/12/2024 PHQ-2 Answer Date Recorded Patient Health Questionnaire-2 Score 0 08/18/2024 Transportation Answer Date Recorded In the past 12 months, has l ack of transportation kept you from medical appointments or from getting medications? No 01/12/2024 Lack of Transportation (Non-Medical) Not on file 01/12/2024 Housing Stability Vital Sign Answer Reginald e Recorded Unable to Pay for Housing in the Last Year Not o n file 01/12/2024 Number of Places Lived in the Last Year Not on f ile 01/12/2024 In the last 12 months, was t here a time when you did not have a steady place to sleep or slept in a fpc (including now)? No 01/12/2024 Hunger Vital Sign Answer Date Recorded Within the past 12 months, y ou worried that your food would run out before you got the money to buy more. Never true 01/12/20 24 Ran Out of Food in the Last Year Not on file 01/12/2024 Sex and Gender Information Value Date Recorded Sex Assigned at Male 09/02/2023 10:58 AM EDT Legal Sex Male 12:39 AM EDT Gender Identity Male 09/02/2023 10:58 AM EDT Sexual Orientation Heterosexual or Straight 07/2023 10:58 AM EDT Last Filed Vital Signs Vital Sign Reading Time Taken Comments Blood Pressure 132/73 08/18/2024 2:10 PM EDT Pulse 79 08/18/2024 2:10 PM EDT Temperature 36.6 C (97.8 F) 01/12/2024 1:09 PM EDT Respiratory Rate 18 11/18/2023 7:01 AM EDT Oxygen Saturation 97% 08/18/2024 2:10 PM EDT Inhaled Oxygen Concentration - - Weight 90.7 kg (200 lb) 08/18/2024 2:10 PM EDT Height 177.8 cm (5' 10 ) 08/18/2024 2:10 PM EDT Body Mass Index 28.7 08/18/2024 2:10 PM EDT Plan of Treatment Health Maintenance Due Date Last Done Comments Medicare Annual Wellness (AWV) 1945 Pneumococcal Vaccine: 50+ Years (1 of 2 - PCV) 1964 Adult Tetanus 1967 Zoster Vaccines (1 of 2) 1995 COVID-19 Vaccine (2023-2 5 season) 2024 07/26/2020, 06/28/2020 Influenza Vaccine (#1) 2025 Depression Screening 08/18/2025 08/18/2024 Fall Risk Screening 08/18/2025 08/18/2024 HIB Vaccines Aged Out No longer eligi ble based on patient's age to complete this topic HPV Vaccines Aged Out No longer eligi ble based on patient's age to complete this topic IPV Vaccines Aged Out No longer eligi ble based on patient's age to complete this topic Meningococcal B Vaccine Aged Out No l onger eligible based on patient's age to complete this topic Meningococcal Vaccine Aged Out No ata sumanth eligible based on patient's age to complete this topic Rotavirus Vaccines Aged Out No longer eligible based on patient's age to complete this topic Insurance [employer] Advance Directives * Full Code (Latest Code Status on File) Date Activated Date Inactivated Comments 11/17/2023 12:45 PM 11/18/2023 2:28 PM Care Teams Stratigraphy Teacher Relationship Specialty Start Date End Date Shaikh Storm MD PCP - General Family Medicine 09/02/23
--- OUTSIDE RECORDS SUMMARY | 2025-01-04 13:44 | XMS_ITS | Encounter Summary ---
Author Organization [facility] Address [address] [place] [address] Care Team Providers Care Ivory Carver Name Role Phone Shaikh AUBREE Malik Primary Care Provider Shaikh AUBREE Malik Primary Care Provider [phone] Brian Avalos MD Primary Care Provider [phone] Kayley Ward NP Unavailable Encounter Details Date Type Department Care Team (Late st Contact Info) Description 06/18/2023 Clinisync Result Encounter [facility] External Department Unsolicited Provider, Generic External Data Social History Tobacco Use Types Packs/Day Years [...] Procedure Name Priority Date/Time Associated Diagnosis Comments NUCLEAR STRESS TEST EXERCISE (CARD) 06/18/2023 12:00 PM EST documented in this encounter Results * NUCLEAR STRESS TEST EXERCISE (CARD) (06/18/2023 12:00 PM EST) Anatomical Region Laterality Modality Radiographic Evangelina ging 06/18/2023 12:0 0 PM EST Narrative 06/19/2023 11:20 AM EST Interpreted By: Inge Dickerson and Beal Gina STUDY: MYOCARDIAL PERFUSION STRESS TEST WITH LEXISCAN Performing facility: [facility], [address] [place] [address], [address], [place] [address] [facility] Provider: Sylvester Grayson DO, [facility] PCP: Dr. Agus MALIK Supervising provider: Inge Dickerson MD INDICATION: HTN, Bilateral Carotid, Chest Pain HISTORY: Gender: M; Age: 77 y/o ; Height: HT 177.8 cm cm; Weight: WT 89.812 kg kg. CAD; High Cholesterol; Abnormal EKG; RBBB Previous PA; Family HX CAD; Chest Pain; COPD; PAD, CVA, Carotid Disease, CKD Currently smoking. Cardiac catheterization. PTCA 1990s RCA. COMPARISON: No comparison. ACCESSION NUMBER(S): [id number] ORDERING CLINICIAN: VANDANA GRAYSON TECHNIQUE: ONE DAY protocol. Stress injection: [...] Inge Dickerson 06/19/2023 11:20 AM Dictation workstation: [id number] Procedure Note Radiology, Radiologist, - 06/19/2023 Interpreted By: Inge Dickerson and Beal Gina STUDY: MYOCARDIAL PERFUSION STRESS TEST WITH LEXISCAN Performing facility: [facility], [address] [place] [address], [address], [address] Provider: Sylvester Grayson DO, [facility] PCP: Dr. Agus MALIK Supervising provider: Inge Dickerson MD INDICATION: HTN, Bilateral Carotid, Chest Pain HISTORY: Gender: M; Age: 77 y/o ; Height: HT 177.8 cm cm; Weight: WT 89.812 kg kg. CAD; High Cholesterol; Abnormal EKG; RBBB Previous PA; Family HX CAD; Chest Pain; COPD; PAD, CVA, Carotid Disease, CKD Currently smoking. Cardiac catheterization. PTCA 1990s RCA. COMPARISON: No comparison. ACCESSION NUMBER(S): [id number] ORDERING CLINICIAN: VANDANA GRAYSON TECHNIQUE: ONE DAY protocol. Stress injection: [...] Inge Dickerson 06/19/2023 11:20 AM Dictation workstation: [id number] us Generic External Data Provider IMG XR PROCEDURES Final Result documented in this encounter Visit Diagnoses Not on filedocumented in this encounter Care Teams Ivory Carver Relationship Specialty Start Date End Date Shaikh Malik MD PCP - General Internal Medicine 06/01/22 09/27/23 Shaikh Malik MD [address] [place] [address] PCP - General Internal Medicine 09/28/23 01/11/24 Brian Avalos MD [address] [place] [address] PCP - General Family Medicine 01/12/24 Kayley Ward NP [address] [place] [address] Nurse Practitioner Family Medicine 01/12/24 documented as of this encounter
--- OUTSIDE RECORDS SUMMARY | 2025-01-04 13:44 | XMS_ITS | Encounter Summary ---
Author Organization [facility] Address [address] [place] [address] Care Team Providers Care Director Of Manufacturing Name Role Phone Shaikh AUBREE Storm Primary Care Provider Shaikh AUBREE Storm Primary Care Provider Brian Avalos MD Primary Care Provider [phone] Kayley Ward NP Unavailable [phone] Encounter Details Date Type Department Care Team (Late st Contact Info) Description 07/29/2023 Orders Only [facility] [address] [place] [address] Shaikh Storm MD [address] [place] [address] Social History Tobacco Use Types Packs/Day Years [...] Diagnosis Comments CULTURE, URINE, ROUTINE Routine 07/07/2023 10:04 AM EST documented in this encounter Results * Urine culture (07/07/2023 10:04 AM EST) Urine Urine specimen obtained by clean catch procedure / Unknown Shaikh Dotty [facility] Final Result documented in this encounter Visit Diagnoses Not on filedocumented in this encounter Care Teams Director Of Manufacturing Relationship Specialty Start Date End Date Shaikh Storm MD PCP - General Internal Medicine 06/01/22 09/27/23 Shaikh Storm MD [address] [place] [address] PCP - General Internal Medicine 09/28/23 01/11/24 Brian Avalos MD [address] [place] [address] PCP - General Family Medicine 01/12/24 Kayley Ward NP [address] [place] [address] Nurse Practitioner Family Medicine 01/12/24 documented as of this encounter
--- OUTSIDE RECORDS SUMMARY | 2025-01-04 13:44 | XMS_ITS | Encounter Summary ---
Author Organization [facility] Address [address] [place] [address] Phone Care Team Providers Care Technical Agronomist Name Role Phone Shaikh AUBREE Storm Primary Care Provider [phone] Encounter Details Date Type Department Care Team (Late st Contact Info) Description 10/15/2023 Scanned Document [facility] [address] [place] [phone] Scanning, Generic Provider Social History Tobacco Use [...] Description 08/30/2025 10:00 AM EDT Office Visit [facility] [address] [place] [address] Chaim Grayson DO [address] [place] [address] Scheduled Orders Name Type Priority Associated Diagnoses Orde r Schedule Ultrasound- OnBase Scan Imaging O rdered: 10/15/2023 documented as of this encounter Visit Diagnoses Not on filedocumented in this encounter Additional Health Concerns Assessment Noted Time A fall risk assessment has been complete d for the patient 08/18/2023 11:52 AM EDT documented as of this encounter Care Teams Technical Agronomist Relationship Specialty Start Date End Date Shaikh Storm MD PCP - General Internal Medicine 06/04/23 documented as of this encounter
--- NOTE | 2025-01-04 14:21 | PM.CN ---
Consult Note: HPI Data of Consult Patient: known to practice within the last 3 years Requesting Physician: Jennie Ferrera NP Primary Care Provider: Shaikh Dotty MD Consult Narrative Reason for consult: f/u Narrative: Dexter Broussard a pleasant 79 year old male presents for evaluation and management of chronic low back pain, new onset numbness tingling to BUE and BLE post-op. Patient reporting pain today 3/10 up to 6/10, does increase with activity, decreased with medications and sitting. Patient reports norco 5-325mg BID with moderate relief without side effects. no longer utilizing gabapentin as it was not helping and he could not tolerate higher doses. Patient cannot take NSAIDs as he is on plavix, has failed to benefit from tylenol and PT in the past. p cc:: CC: Jennie Ferrera NP Review of Systems ROS Status of ROS 10 or more systems reviewed and unremarkable except as noted in history and below Musculoskeletal Reports: back pain and extremity pain PFSH PFSH Medical History (Updated 01/04/25 @ 14:22 by Jennie Ferrera NP) History of stress test ?Z92.89 - Personal history of other medical treatment (ICD-10) Osteoarthritis ?M19.90 - Unspecified osteoarthritis, unspecified site (ICD-10) Hearing deficit ?H91.90 - Unspecified hearing loss, unspecified ear (ICD-10) Stroke ?I63.9 - Cerebral infarction, unspecified (ICD-10) Prostate cancer ?C61 - Malignant neoplasm of prostate (ICD-10) Enlarged prostate ?N40.0 - Benign prostatic hyperplasia without lower urinary tract symptoms (ICD-10) Kidney disease ?N28.9 - Disorder of kidney and ureter, unspecified (ICD-10) Surgical History H/O endarterectomy ?Z98.890 - Other specified postprocedural states (ICD-10) History of bowel resection ?Z90.49 - Acquired absence of other specified parts of digestive tract (ICD-10) History of exploratory laparotomy ?Z98.890 - Other specified postprocedural states (ICD-10) History of lumbar discectomy ?Z98.890 - Other specified postprocedural states (ICD-10) History of heart artery stent ?Z95.5 - Presence of coronary angioplasty implant and graft (ICD-10) Meds Home Medications and Allergies Home Medications ?Medication ?Instructions ?Recorded ?Confirmed ?Type amlodipine 10 mg tablet 10 mg PO DAILY 02/05/23 09/21/24 History aspirin 81 mg capsule 81 mg PO DAILY 02/05/23 09/21/24 History VITAMIN D 50,000U 07/30/23 History clopidogrel 75 mg tablet (Plavix) 75 mg PO DAILY 07/30/23 09/21/24 History pravastatin 40 mg tablet 40 mg PO DAILY 07/30/23 09/21/24 History hydrocodone 5 mg-acetaminophen 325 1 tab PO BID PRN pain #60 tabs 05/26/24 09/21/24 Rx mg tablet naloxone 4 mg/actuation nasal 4 mg intranasal Q2M PRN opioid 05/26/24 Rx spray (Narcan) overdose #2 ea hydrocodone 5 mg-acetaminophen 325 1 tab PO BID PRN pain #18 tabs 09/21/24 Rx mg tablet valsartan 80 mg tablet 80 mg PO DAILY 09/21/24 09/21/24 History hydrocodone 5 mg-acetaminophen 325 1 tab PO TID PRN pain #90 tabs 09/27/24 Rx mg tablet Allergies Allergy/AdvReac Type Severity Reaction Status Date / Time No Known Drug Allergies Allergy Verified 08/10/23 11:17 Exam Constitutional Documenting provider has reviewed patient's vital signs: yes Common normals: no apparent distress, oriented x3, healthy appearing, alert and well nourished General appearance: cooperative HENWY Common normals: normocephalic, hearing grossly normal bilaterally and moist oral mucous membranes Head and scalp: normocephalic Eye Common normals: PERRL Pupil: PERRL Neck & C-Spine Common normals: full ROM General: normal visual inspection Cervical spine: cervical ROM normal; no pain with cervical ROM Other: negative spurlings sensation intact BUE Chest Common normals: inspection of chest normal Respiratory Common normals: normal respiratory effort, no retractions and no use of accessory muscles Back & Pelvis Lumbar spine/lower back: lumbar ROM normal and straight leg raise negative bilaterally; no pain with ROM Sacroiliac joints: SI joints normal Other: increased pain with standing and walking, improves significantly with forward flexion and upon sitting Extremity Common normals: full ROM and no joint enlargement Neuro Common normals: oriented x3 Sensorium/orientation: alert Motor exam: strength 5/5 throughout and no movement abnormalities noted Other: numbness and tingling to BUE from elbows to wrists, sensation intact numbness and tingling intermittent from below knee to ankles wrapping around the whole leg Psych Common normals: mental status grossly normal, thought process normal, cooperative, affect normal, speech normal and activity/motor behavior normal Speech: normal speech Thought process: normal thought process Results Additional Findings Additional findings: If on a controlled substance or opioids, I have checked an OARRS report on this patient and there are no aberrancies noted in the prescribing history.??If on a controlled substance or opioid a drug screen was completed and reviewed within the last year, and if there has not been a drug screen completed we ordered one today to monitor higher risk, state monitored pain medication use. As part of providing excellent, safe, comprehensive care, the following was completed at our patient's visit: 1. A medication reconciliation and review to ensure accurate knowledge of current/active medications, including asking our patients to inform us about any [id number] medications or herbal remedies/nutritional supplements/alternative remedies. 2. A review to specifically ensure our patients have had annual screening for screening for depression, screening for tobacco use, and screening for unhealthy alcohol use. For concerning screenings had a discussion with the patient, provided patient education, and recommended follow-up with primary care provider when appropriate. If patient noted with a risk of falling, they received education on strength, gait, and balance training to prevent future risk of falling. Portions of this note may have been carried over from the previous visit and updated as appropriate. Please note this office utilizes paper charting in addition to the electronic medical record. A list of current medications, vitals, and PMH is available there as the clinical staff outside of myself do not have access to [employer] charting during the clinic day operations. As part of providing quality comprehensive care the current medications, vitals, and PMH were reviewed in the paper chart. 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 The patient does not report intolerable side effects. The patient is NOT opioid naive and non-pharmacologic and non-opioid treatment has failed to significantly relieve the patient's pain and improve functionality. The patient has a diagnosis that is related to a somatic or visceral pain etiology. ? ?? I reviewed with the patient the potential risks and side effects with the use of? opioid medications including but not limited to respiratory depression,? sedation, and even . Within the last 12 months I have verified the patient has access to naloxone should? these effects occur. The patient was advised to let? their family know they had Naloxone in case they would need to administer? the medication. I advised the patient to avoid the use of any other? sedation substances including alcohol, THC, and benzodiazepines while? taking opioid medications due to the risk of compounding side effects and? detrimental outcomes. within the last 12 months I have reviewed the STREET SWEEPER, pain treatment agreement and urine drug screen.? ?? A drug screen was completed within the last year, and no aberrancies were noted regarding their use of controlled substances. The patient understands they are subject to the terms and conditions of the pain contract that they have signed. ? ?? I have checked an OARRS report on this patient today and there are no aberrancies noted in the prescribing history.? Plan briefly discussed spinal cord stim trial/implant, handout provided refill/continue hydorocone acetaminophen 5-325mg BID PRN moderate to severe pain continue HEP as tolerated f/u 1 month to evaluate medication response
== END 2025-01-04 13:42 | disposition home or self-care (01) ==
LOC: PM 13:42
PROVIDERS: PCP Internal Medicine; Visit Provider Nurse Practitioner
DX: M48.062 Spinal stenosis, lumbar region with neurogenic claudication (principal); M96.1 Postlaminectomy syndrome, not elsewhere classified; Z79.891 Long term (current) use of opiate analgesic
CPT/HCPCS: G0463

== ENCOUNTER 2025-02-08 12:55 | Outpatient (OUT) | payer MEDICARE, SELFPAY ==
--- OUTSIDE RECORDS SUMMARY | 2025-02-08 12:57 | XMS_ITS | Encounter Summary ---
Author Organization [facility] Address [address] [place] [address] Phone Care Team Providers Care Tool Chaser Name Role Phone Shaikh AUBREE Storm Primary Care Provider [phone] Encounter Details Date Type Department Care Team (Late st Contact Info) Description 05/21/2023 Scanned Document [facility] [address] [place] [phone] Scanning, Generic Provider Social History Tobacco Use [...] Office Visit [facility] [address] [place] [address] Chaim Grayson DO [address] [place], [place] [phone] documented as of this encounter Visit Diagnoses Not on filedocumented in this encounter Care Teams Tool Chaser Relationship Specialty Start Date End Date Shaikh Storm MD PCP - General Internal Medicine 06/04/23 documented as of this encounter
--- OUTSIDE RECORDS SUMMARY | 2025-02-08 12:57 | XMS_ITS | Encounter Summary ---
Author Organization [facility] Address [address] [place] [address] Care Team Providers Care Air Transportation Provider Name Role Phone Shaikh AUBREE Storm Primary Care Provider [phone] Ronaldo Alaniz MD Unavailable [phone] Constance Durand Unavailable Unavailable Source Comments In the event this information is protected by the Federal Confidentiality of Alcohol and Drug AbusePatient Records regulations: The Federal rules restrict any use of the information to criminally investigate or prosecute any alcohol or drug abuse patient.[facility] Encounter Details Date Type Department Care Team (Late st Contact Info) Description 11/29/2024 Patient Msg Radiation Oncology [address] [place] [address] Hyun Raza MD [address] [address] Appointment Cancellation Request Social History Tobacco [...] is lower risk 4 11/18/2022 Data from: https://www.neighborhoodatlas.medicine.[facility]/. Last address used for calculation [...] Care Team (Late st Contact Info) Description 04/20/2025 9:45 AM EST Office Visit Radiation Oncology [address] [facility] [facility] [place] [address] Hyun Raza MD [address] [place] [address] [place] [address] 3 month follow up documented as of this encounter Visit Diagnoses Not on filedocumented in this encounter Care Teams Air Transportation Provider Relationship Specialty Start Date End Date Shaikh Storm MD [address] [place] [address] PCP - General Primary Care 12/06/21 Ronaldo Alaniz MD [address] [place] [address] Referring Urology 12/06/21 Constance Durand LSW Cotton Feeder 03/04/22 documented as of this encounter
--- OUTSIDE RECORDS SUMMARY | 2025-02-08 12:57 | XMS_ITS | Encounter Summary ---
Author Organization [facility] Address [address] [place] [address] Care Team Providers Care Senior Developer Name Role Phone Shaikh AUBREE Storm Primary Care Provider Shaikh AUBREE Storm Primary Care Provider Brian Avalos MD Primary Care Provider [phone] Kayley Ward NP Unavailable Encounter Details Date Type Department Care Team (Late st Contact Info) Description 05/21/2023 External Result Encounter [facility] External Department Unsolicited Shaikh Storm MD [address] [place] [address] Social History Tobacco Use Types Packs/Day Years [...] 11:42 AM EST) 05/21/2023 11:4 2 AM [facility] - 05/22/2023 11:09 AM [place] [id number] Electrocardiograph Report Signed Patient: Vasyl Broussard MR#: [id number] : 1945 Acct:[id number] Age/Sex: 77 / M ADM Date: 05/21/23 [...] undetermined Abnormal ECG Confirmed by DEANN MAK [facility] ([id number]) on 05/21/2023 5:04:18 PM Referred By: Electronically Signed By:BARBARA ZACARIAS MD [facility] Transcribed By: MUS Signed By Chaim Zacarias MD 05/21/23 1704 Procedure Note Gabrielle Zacarias MD - 05/22/2023 [place] [id number] Electrocardiograph Report Signed Patient: Vasyl Broussard RMR#: [id number] : 6Acct:[id number] Age/Sex: 77 / MADM Date: 05/21/23 Loc: [...] [facility]ACC Transcribed By: MUS Signed By Chaim Zacarais MD 05/21/23 1687 us Shaikh Dotty MAK ECG ORDERABLES Final Result [facility] [address] [place] [address], documented in this encounter Visit Diagnoses Not on filedocumented in this encounter Care Teams Senior Developer Relationship Specialty Start Date End Date Shaikh Storm MD PCP - General Internal Medicine 06/01/22 09/27/23 Shaikh Storm MD [address] [place] [address] PCP - General Internal Medicine 09/28/23 01/11/24 Brian Avalos MD [address] [place] [address] PCP - General Family Medicine 01/12/24 Kayley Ward NP [address] [place] [address] Nurse Practitioner Family Medicine 01/12/24 documented as of this encounter
--- OUTSIDE RECORDS SUMMARY | 2025-02-08 12:57 | XMS_ITS | Encounter Summary ---
Author Organization [facility] Address [address] [place] [address] Phone Care Team Providers Care Chainstitch Zipper Setter Name Role Phone Shaikh AUBREE Storm Primary Care Provider [phone] Encounter Details Date Type Department Care Team (Late st Contact Info) Description 10/15/2023 Scanned Document [facility] [address] [place] [address] [place] [phone] Scanning, Generic Provider Social History Tobacco Use [...] Description 08/30/2025 10:00 AM EDT Office Visit [facility] [address] [facility] [address] [facility] [address] [place] [address] Chaim Grayson DO [address] [facility] [address] [place] [address] Scheduled Orders Name Type Priority Associated Diagnoses Orde r Schedule Ultrasound- OnBase Scan Imaging O rdered: 10/15/2023 documented as of this encounter Visit Diagnoses Not on filedocumented in this encounter Additional Health Concerns Assessment Noted Time A fall risk assessment has been complete d for the patient 08/18/2023 11:52 AM EDT documented as of this encounter Care Teams Chainstitch Zipper Setter Relationship Specialty Start Date End Date Shaikh Storm MD PCP - General Internal Medicine 06/04/23 documented as of this encounter
--- OUTSIDE RECORDS SUMMARY | 2025-02-08 12:57 | XMS_ITS | Encounter Summary ---
Author Organization [facility] Address [address] [place] [address] Care Team Providers Care Foreclosure Home Inspector Name Role Phone Brian Avalos MD Primary Care Provider Kayley Ward DATA MANAGER Unavailable Encounter Details Date Type Department Care Team (Late st Contact Info) Description 08/09/2024 Orders Only [facility] [address] [place] [address] Claire James MD [address] [place] [address] Social History Tobacco Use Types Packs/Day Years [...] declined 01/20/2024 How often do you attend rastafarian or taoist serv ices? Patient declined 01/20/2024 Do you belong to any clubs o r organizations such as rastafarian groups, unions, fraternal or athletic groups, or [...] any time in the past 12 m [facility], were you homeless or living in a [...] documented as of this encounter Care Teams Foreclosure Home Inspector Relationship Specialty Start Date End Date Brian Avalos MD PCP - General Family Medicine 01/12/24 Kayley Ward NP Nurse Practitioner Family Medicine 01/12/24 documented as of this encounter
--- OUTSIDE RECORDS SUMMARY | 2025-02-08 12:57 | XMS_ITS | Encounter Summary ---
Author Organization [facility] Address [address] [place] [address] Care Team Providers Care Manager Bar Name Role Phone Brian Avalos MD Primary Care Provider Kayley Ward NP Unavailable Encounter Details Date Type Department Care Team (Late st Contact Info) Description 04/11/2024 Orders Only [facility] [address] [facility] [address] Kalyey Ward NP Social History Tobacco Use Types [...] declined 01/20/2024 How often do you attend presybeterian or buddhism serv ices? Patient declined 01/20/2024 Do you belong to any clubs o r organizations such as presybeterian groups, unions, fraternal or athletic groups, or [...] any time in the past 12 m [facility], were you homeless or living in a halfway (including now)? No 01/20/2024 Sex and Gender [...] LABS (04/11/2024 3:25 PM EST) Kayley Ward CABLE PULLER LAB CHG PERFORMABLES Fin al Result * SCANNED LABS (04/11/2024 9:23 AM EST) Kayley Ward CABLE PULLER LAB CHG PERFORMABLES Fin al Result documented in this encounter Visit Diagnoses Not on filedocumented in this encounter Additional Health Concerns Assessment Noted Time PHQ-9 Depression Total Score: 5 12/08/19 24 11:00 AM EDT documented as of this encounter Care Teams Manager Bar Relationship Specialty Start Date End Date Brian Avalos MD PCP - General Family Medicine 01/12/24 Kayley Ward NP Nurse Practitioner Family Medicine 01/12/24 documented as of this encounter
--- OUTSIDE RECORDS SUMMARY | 2025-02-08 12:57 | XMS_ITS ---
Author Organization [facility] Address [address] [place], [place] [address] Care Team Providers Care Assembler Finger Buffs Name Role Phone Shaikh AUBREE Storm Primary Care Provider [phone] Ronaldo Alaniz MD Unavailable [phone] Constance Durand Unavailable Unavailable Active Problems Problem [...] Cancer Stage:IIB; Clinical stage T1b, N0, M0 Nicola Score: 3+4=7 PSA at Diagnosis: 9.95 Clinical [...] you may be interested in: [email or web address] [employer] Ceiling Cleaner Art Therapy Support Groups- Contact [employer] for dates and times. Prepared by: Elizabeth Freire APRN.PRISON KEEPER Delivered on: November 18, 2022 - This [...]
--- OUTSIDE RECORDS SUMMARY | 2025-02-08 12:57 | XMS_ITS | Encounter Summary ---
Author Organization [facility] Address [address] [place] [address] Care Team Providers Care Carpet Measurer Name Role Phone Brian Avalos MD Primary Care Provider [phone] Kayley Ward ROOFING SUPERVISOR Unavailable Reason for Visit * Reason Comments Med Refill Encounter Details Date Type Department Care Team (Late st Contact Info) Description 12/09/2024 Refill [facility] [address] [facility] [address] Qian Son NP [address] [place] [address] Primary hypertension Social History Tobacco Use Types [...] declined 01/20/2024 How often do you attend alevism or restorationism serv ices? Patient declined 01/20/2024 Do you belong to any clubs o r organizations such as alevism groups, unions, fraternal or athletic groups, or [...] any time in the past 12 m [facility], were you homeless or living [...] documented as of this encounter Care Teams Carpet Measurer Relationship Specialty Start Date End Date Brian Avalos MD PCP - General Family Medicine 01/12/24 Kayley Ward NP Nurse Practitioner Family Medicine 01/12/24 documented as of this encounter
--- OUTSIDE RECORDS SUMMARY | 2025-02-08 12:57 | XMS_ITS | Encounter Summary ---
Author Organization [facility] Address [address] [place] [address] Care Team Providers Care Community Service Representative Name Role Phone Brian Avalos MD Primary Care Provider [phone] Kayley Ward LOCKSTITCH LINING SETTER Unavailable Encounter Details Date Type Department Care Team (Late st Contact Info) Description 08/24/2024 Orders Only [facility] [address] [facility] [place] [address] Cherie William NP [address] [place] [address] Social History Tobacco Use Types [...] declined 01/20/2024 How often do you attend bahai or holiness serv ices? Patient declined 01/20/2024 Do you belong to any clubs o r organizations such as bahai groups, unions, fraternal or athletic groups, or [...] any time in the past 12 m [facility], were you homeless or living in a fpc (including now)? No 01/20/2024 Sex and Gender Information Value Date Recorded Sex Assigned at Not on file Legal Sex Male 11:33 PM EDT Gender Identity Not on file Sexual Orientation Not on file documented as of this encounter Plan of Treatment Not on file documented as of this encounter Procedures Procedure Name Priority Date/Time Associated Diagnosis Comments SCANNED LABS Routine 08/24/2024 10:52 AM EDT documented in this encounter Results * SCANNED LABS (08/24/2024 10:52 AM EDT) Cherie William NP LAB CHG PERFORMABLES Final Resu lt documented in this encounter Visit Diagnoses Not on filedocumented in this encounter Additional Health Concerns Assessment Noted Time PHQ-9 Depression Total Score: 5 12/08/19 24 11:00 AM EDT documented as of this encounter Care Teams Community Service Representative Relationship Specialty Start Date End Date Brian Avalos MD PCP - General Family Medicine 01/12/24 Kayley Ward NP Nurse Practitioner Family Medicine 01/12/24 documented as of this encounter
--- OUTSIDE RECORDS SUMMARY | 2025-02-08 12:57 | XMS_ITS | Clinical Summary ---
Author Organization [facility] Address [id number] [address] [place] [address] Care Team Providers Care Medical Numerical Control Operator Name Role Phone Unavailable Primary Care Provider [...] 01/30/2025 Medical Devices Not on file Insurance [facility]IC[facility]
--- OUTSIDE RECORDS SUMMARY | 2025-02-08 12:57 | XMS_ITS | Encounter Summary ---
Author Organization [facility] Address [address] [place] [address] Phone Care Team Providers Care Tactical Response Group Officer Name Role Phone Shaikh AUBREE Storm Primary Care Provider [phone] Encounter Details Date Type Department Care Team (Late st Contact Info) Description 04/16/2023 Scanned Document [facility] [address] [place] [address] Scanning, Generic Provider Social History Tobacco Use [...] Description 08/30/2025 10:00 AM EDT Office Visit [facility] [address] [place] [address] Chaim Grayson DO [address] [place], [place] [id number] Scheduled Orders Name Type Priority Associated Diagnoses Orde r Schedule ULTRASOUND - ONBASE SCAN Imaging Ordered: 04/16/2023 documented as of this encounter Visit Diagnoses Not on filedocumented in this encounter Care Teams Tactical Response Group Officer Relationship Specialty Start Date End Date Shaikh Storm MD PCP - General Internal Medicine 06/04/23 documented as of this encounter
--- OUTSIDE RECORDS SUMMARY | 2025-02-08 12:57 | XMS_ITS | Clinical Summary ---
Author Organization [facility] Address [address] [place] [address] Care Team Providers Care Supervisor Rice Milling Name Role Phone Brian Avalos MD Primary Care Provider [phone] Kayley Ward LACROSSE COACH Unavailable [phone] Allergies Active Allergy Reactions Criticality Noted Date Comments Ezetimibe GI intolerance 04/27/2023 Statins Other Medium 03/30/2023 Muscle/Joint Pain Other Reaction(s): Other Muscle/Joint Pain Other Reaction(s): lipitor Medications pravastatin (Pravachol) 40 MG tablet Take 40 mg by mouth at bedtime. Active ergocalciferol (Vitamin D-2) 1.25 MG (10133 UT) capsule Take 1.25 mg by mouth 1 (one) time per week. Active ASPIRIN 81 MG chewable tablet Chew 81 mg in the morning. Active clopidogrel (Plavix) 75 MG tablet Take 75 mg by mouth in the morning. 04/21/2023 Active valsartan (Diovan) 80 MG tablet Take 80 mg by mouth in the morning. 06/04/2023 Active acetaminophen (Tylenol) 325 MG tablet Take 650 mg by mouth every 8 (eight) hours 11/18/2023 Active amLODIPine (Norvasc) 10 MG tabletIndications :Primary hypertension Take 1 tablet (10 mg) by mouth in the morning. 90 tablet 12/09/2024 03/09/20 25 Active Active Problems Problem Noted Date Diagnosed [...] for Lumbar Stenosis. Recently reduced dosage of [place]. Feels symptoms are well controlled. Continue current [...] joint 09/02/2023 Coronary artery disease invo lving grayling coronary artery of grayling heart without angina pectoris 06/29/2023 Assessment & [...] hips on prolonged ambulation. Patient is on [place] for chronic pain. He was evaluated by NS at [facility] and it seemed like they were concerned about possible opioid induced hyperalgesia. Patient has been trying to wean himself off of [place] but if he does not use it [...] foraminal stenosis Will refer to NS at [facility]. CVA (cerebral vascular accident) 06/04/2023 Assessment & Plan (06/29/2023 6:57 PM EST): Prior hx of ischemic CVA. No residual deficit. On ASA, statin. Carotid artery disease 06/04/2023 PAD (peripheral artery disease) 06/04/2023 Assessment & Plan (09/28/2023 9:43 AM EDT): On ASA, Plavix and statin. Left leg revascularization 2022 at [facility]. Leg pain has improved and is doing well Heart disease 06/04/2023 BPH (benign prostatic hyperplasia) 06/04/2023 History of AK (myocardial infarction) 06/04/2023 HLD (hyperlipidemia) 04/27/2023 Assessment [...] Encounters Date Type Department Care Team Description 01/12/2025 Clinisync Result Encounter [facility] External Department Unsolicited Provider, Generic External Data 12/09/2024 Refill [facility] [address] [place] [address] Qian Son NP Primary hypertension from Last [...] declined 01/20/2024 How often do you attend congregation or pentecostal serv ices? Patient declined 01/20/2024 Do you belong to any clubs o r organizations such as congregation groups, unions, fraternal or athletic groups, or [...] any time in the past 12 m [facility], were you homeless or [...] 12/08/2023 , 12/08/2023 Influenza Vaccine (#1) 2025 Procedures Procedure Name Priority Date/Time Associated Diagnosis Comments [facility] PSA SERPL-MCNC Routine 01/12/2025 11 :43 AM EDT from Last 3 Months Results * [facility] PSA SERPL-MCNC (01/12/2025 11:43 AM EDT) [facility] PSA SERPL-MCNC 1.56 <2.60 ng/mL [facility] Comment:Total PSA test metho dology used is the Electrochemiluminescence Immunoassay by [facility]. Total PSA values by differing methodologies cannot be interchanged. 01/12/2025 11:4 3 AM EDT 01/12/2025 2:35 PM EDT Narrative DOLORES - 01/12/2025 10:52 PM EDT Specimen Type: BLOOD SPECIMEN Ordering Facility: [facility] Address: [address] [place] [address] Original Ordering Provider: Hyun NAZARIO us Generic External Data Provider DOLORES F inal Result DOLORES [facility] [address] [facility] [address] [place] [address] from Last 3 Months Insurance [address] [id number] [place] [employer] Care Teams Supervisor Rice Milling Relationship Specialty Start Date End Date Brian Avalos MD PCP - General Family Medicine 01/12/24 Kayley Ward NP Nurse Practitioner Family Medicine 01/12/24
--- OUTSIDE RECORDS SUMMARY | 2025-02-08 12:57 | XMS_ITS | Encounter Summary ---
Author Organization [facility] Address [address] [place] [address] Care Team Providers Care Rubber Production Machine Operator Name Role Phone Shaikh AUBREE Storm Primary Care Provider [phone] Brian Avalos MD Primary Care Provider [phone] Kayley Ward NP Unavailable [phone] Encounter Details Date Type Department Care Team (Late st Contact Info) Description 12/09/2023 Orders Only [facility] [address] [place] [address] Cornel Ravi MD [address] [place] [address] Social History Tobacco Use Types [...] Time PHQ-9 Depression Total Score: 5 12/08/19 11:00 AM EDT documented as of this encounter Care Teams Rubber Production Machine Operator Relationship Specialty Start Date End Date Shaikh Storm MD [address] [place] [address] PCP - General Internal Medicine 09/28/23 01/11/24 Brian Avalos MD [address] [place] [address] PCP - General Family Medicine 01/12/24 Kayley Ward NP [address] [place] [address] Nurse Practitioner Family Medicine 01/12/24 documented as of this encounter
--- OUTSIDE RECORDS SUMMARY | 2025-02-08 12:57 | XMS_ITS | Encounter Summary ---
Author Organization [facility] Address [address] [place] [id number] Phone Care Team Providers Care Gun Stock Checker Name Role Phone Shaikh AUBREE Storm Primary Care Provider [phone] Encounter Details Date Type Department Care Team (Late st Contact Info) Description 01/14/2023 Scanned Document [facility] [address] [place] [address] Conversion, Onbase Social History Tobacco Use Types [...] Description 08/30/2025 10:00 AM EDT Office Visit [place] [address] [place] [address] Chaim Grayson DO [address] [place] [address] documented as of this encounter Visit Diagnoses Not on filedocumented in this encounter Care Teams Gun Stock Checker Relationship Specialty Start Date End Date Shaikh Storm MD PCP - General Internal Medicine 06/04/23 documented as of this encounter
--- OUTSIDE RECORDS SUMMARY | 2025-02-08 12:57 | XMS_ITS | Encounter Summary ---
Author Organization [facility] Address [address] [place] [address] Phone Care Team Providers Care Mother Repairer Name Role Phone Shaikh AUBREE Storm Primary Care Provider [phone] Encounter Details Date Type Department Care Team (Late st Contact Info) Description 08/10/2024 Scanned Document [facility] [address] [place] [address] Scanning, Generic Provider Social History Tobacco Use [...] Description 08/30/2025 10:00 AM EDT Office Visit [facility] [address] [place] [address] Chaim Grayson DO [address] [place] [address] documented as of this encounter Visit Diagnoses Not on filedocumented in this encounter Additional Health Concerns Assessment Noted Time A fall risk assessment has been complete d for the patient 08/18/2023 11:52 AM EDT documented as of this encounter Care Teams Mother Repairer Relationship Specialty Start Date End Date Shaikh Storm MD PCP - General Internal Medicine 06/04/23 documented as of this encounter
--- OUTSIDE RECORDS SUMMARY | 2025-02-08 12:57 | XMS_ITS | Encounter Summary ---
Author Organization [facility] Address [address] [place] [address] Care Team Providers Care Ophthalmic Dispenser Name Role Phone Brian Avalos MD Primary Care Provider [phone] Kayley Ward CLAIMS PROCESSOR Unavailable [phone] Encounter Details Date Type Department Care Team (Late st Contact Info) Description 08/25/2024 Orders Only [facility] [address] [facility] [place] [address] Cherie William NP [address] [place] [address] Social History Tobacco Use Types [...] declined 01/20/2024 How often do you attend religious or islam serv ices? Patient declined 01/20/2024 Do you belong to any clubs o r organizations such as religious groups, unions, fraternal or athletic groups, or [...] any time in the past 12 m [facility], were you homeless or living in a custodial (including now)? No 01/20/2024 Sex and Gender [...] documented as of this encounter Care Teams Ophthalmic Dispenser Relationship Specialty Start Date End Date Brian Avalos MD PCP - General Family Medicine 01/12/24 Kayley Ward NP Nurse Practitioner Family Medicine 01/12/24 documented as of this encounter
--- OUTSIDE RECORDS SUMMARY | 2025-02-08 12:57 | XMS_ITS | Encounter Summary ---
Author Organization [facility] Address [address] [place] [address] Care Team Providers Care Tooling Supervisor Name Role Phone Shaikh AUBREE Storm Primary Care Provider [phone] Ronaldo Alaniz MD Unavailable [phone] Constance Durand Unavailable Unavailable Source Comments In the event this information is protected by the Federal Confidentiality of Alcohol and Drug AbusePatient Records regulations: The Federal rules restrict any use of the information to criminally investigate or prosecute any alcohol or drug abuse patient.[facility] Encounter Details Date Type Department Care Team (Late st Contact Info) Description 11/29/2024 Patient Msg Radiation Oncology [address] [place] [address] Hyun Raza MD [address] [place] [address] Appointment Cancellation Request Social History Tobacco [...] is lower risk 4 11/18/2022 Data from: https://www.neighborhoodatlas.medicine.[facility]/. Last address used for calculation [address] [...] AM EST Office Visit Radiation Oncology [address] [facility] [place] [address] Hyun Raza MD [address] [place] [address] [place] [address] 3 month follow up documented as of this encounter Visit Diagnoses Not on filedocumented in this encounter Care Teams Tooling Supervisor Relationship Specialty Start Date End Date Shaikh Storm MD [address] [place] [address] PCP - General Primary Care 12/06/21 Ronaldo Alaniz MD [address] [place] [address] Referring Urology 12/06/21 Constance Durand LSW Analytical Consultant 03/04/22 documented as of this encounter
--- OUTSIDE RECORDS SUMMARY | 2025-02-08 12:57 | XMS_ITS | Clinical Summary ---
Author Organization [facility] Address [address] [place] [address] Phone Care Team Providers Care Skin Care Technician Name Role Phone Shaikh AUBREE Storm Primary Care Provider [phone] Allergies Active Allergy Reactions Criticality Noted Date Comments Ezetimibe GI intolerance,Nausea/vo miting High 04/27/2023 Vyruhgt-Qyn-Gxl Reductase Inhibitors Other Medium 03/30/2023 Muscle/Joint Pain Medications aspirin 81 mg EC tablet Take 1 tablet (81 mg) by mouth once daily. Active ergocalciferol (Vitamin D-2) 1.25 MG (60071 UT) capsule Take 1 capsule (1,250 mcg) by mouth 1 (one) time per week. 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 Follows routinely with vascular Denies claudication History of [place] (myocardial infarction) 06/04/2023 CVA (cerebral vascular accident) [...] Date Resolved Date Heart disease 06/04/2023 08/30/2024 Immunizations Immunization Administration Dates Next Due Moderna [...] Description 08/30/2025 10:00 AM EDT Office Visit [facility] [address] [place] [address] Chaim Grayson DO [address] [facility] [address] [place] [address] Health Maintenance Due Date Last Done Comments [...] 75+ series) 2020 COVID-19 Vaccine (3 - 2024-2 6 season) 2025 07/26/2020, 06/25/2020 Influenza Vaccine (#1) 2025 HIB [...] patient's age to complete this topic Insurance [place] [employer] [place] [employer] Care Teams Skin Care Technician Relationship Specialty Start Date End Date Shaikh Storm MD PCP - General Internal Medicine 06/04/23
--- OUTSIDE RECORDS SUMMARY | 2025-02-08 12:57 | XMS_ITS | Encounter Summary ---
Author Organization [facility] Address [address] [place] [address] Care Team Providers Care Control Clerk Auditing Name Role Phone Shaikh AUBREE Storm Primary Care Provider Brian Avalos MD Primary Care Provider [phone] Kayley Ward NP Unavailable [phone] Encounter Details Date Type Department Care Team (Late st Contact Info) Description 10/02/2023 Orders Only [facility] [address] [place] [address] Shaikh Storm MD [address] [place] [address] Social History Tobacco Use Types Packs/Day Years [...] documented as of this encounter Care Teams Control Clerk Auditing Relationship Specialty Start Date End Date Shaikh Storm MD [address] [place] [address] PCP - General Internal Medicine 09/28/23 01/11/24 Brian Avalos MD [address] [place] [address] PCP - General Family Medicine 01/12/24 Kayley Ward NP [address] [place] [address] Nurse Practitioner Family Medicine 01/12/24 documented as of this encounter
--- OUTSIDE RECORDS SUMMARY | 2025-02-08 12:57 | XMS_ITS | Encounter Summary ---
Author Organization [facility] Address [address] [place] [address] Care Team Providers Care Necktie Turner Name Role Phone Shaikh AUBREE Storm Primary Care Provider Shaikh AUBREE Storm Primary Care Provider Brian Avalos MD Primary Care Provider [phone] Kayley Ward NP Unavailable [phone] Encounter Details Date Type Department Care Team (Late st Contact Info) Description 05/12/2023 Orders Only [facility] [address] [address] Claire James MD [address] [place] [address] Social History Tobacco Use Types Packs/Day Years [...] on filedocumented in this encounter Care Teams Necktie Turner Relationship Specialty Start Date End Date Shaikh Storm MD PCP - General Internal Medicine 06/01/22 09/27/23 Shaikh Storm MD [address] [place] [address] PCP - General Internal Medicine 09/28/23 01/11/24 Brian Avalos MD [address] [place] [address] PCP - General Family Medicine 01/12/24 Kayley Ward NP [address] [place] [address] Nurse Practitioner Family Medicine 01/12/24 documented as of this encounter
--- OUTSIDE RECORDS SUMMARY | 2025-02-08 12:57 | XMS_ITS | Encounter Summary ---
Author Organization [facility] Address [address] [place] [address] Phone Care Team Providers Care Spragger Name Role Phone Shaikh AUBREE Storm Primary Care Provider [phone] Encounter Details Date Type Department Care Team (Late st Contact Info) Description 05/27/2023 Scanned Document [facility] [address] [place] [address] Scanning, Generic Provider Social History Tobacco Use [...] Description 08/30/2025 10:00 AM EDT Office Visit [facility] [address] [facility] [address] [place] [address] Chaim Grayson DO [address] [place], [place] [address] documented as of this encounter Visit Diagnoses Not on filedocumented in this encounter Care Teams Spragger Relationship Specialty Start Date End Date Shaikh Storm MD PCP - General Internal Medicine 06/04/23 documented as of this encounter
--- OUTSIDE RECORDS SUMMARY | 2025-02-08 12:57 | XMS_ITS | Encounter Summary ---
Author Organization [facility] Address [address] [place] [address] [place] [address] Care Team Providers Care Motor Tester Name Role Phone Brian Avalos MD Primary Care Provider [phone] Kayley Ward EXPLOSIVE MAN Unavailable [phone] Encounter Details Date Type Department Care Team (Late st Contact Info) Description 08/15/2024 Orders Only [facility] [address] [address] Claire James MD [address] [place] [address] Social History Tobacco Use Types Packs/Day Years [...] declined 01/20/2024 How often do you attend protestant or jew serv ices? Patient declined 01/20/2024 Do you belong to any clubs o r organizations such as protestant groups, unions, fraternal or athletic groups, or [...] any time in the past 12 m [facility], were you homeless or living in a care home (including now)? No 01/20/2024 Sex and Gender [...] documented as of this encounter Care Teams Motor Tester Relationship Specialty Start Date End Date Brian Avalos MD PCP - General Family Medicine 01/12/24 Kayley Ward NP Nurse Practitioner Family Medicine 01/12/24 documented as of this encounter
--- OUTSIDE RECORDS SUMMARY | 2025-02-08 12:57 | XMS_ITS | Encounter Summary ---
Author Organization [facility] Address [address] [place] [address] Care Team Providers Care Veterinary Laboratory Diagnostician Name Role Phone Shaikh AUBREE Storm Primary Care Provider [phone] Brian Avalos MD Primary Care Provider [phone] Kayley Ward NP Unavailable [phone] Encounter Details Date Type Department Care Team (Late st Contact Info) Description 10/01/2023 Orders Only [facility] [address] [place] [address] Shaikh Storm MD [address] [place] [address] Social History Tobacco Use Types Packs/Day Years [...] documented as of this encounter Care Teams Veterinary Laboratory Diagnostician Relationship Specialty Start Date End Date Shaikh Storm MD [address] [place] [address] PCP - General Internal Medicine 09/28/23 01/11/24 Brian Avalos MD [address] [place] [address] PCP - General Family Medicine 01/12/24 Kayley Ward NP [address] [place] [address] Nurse Practitioner Family Medicine 01/12/24 documented as of this encounter
--- OUTSIDE RECORDS SUMMARY | 2025-02-08 12:57 | XMS_ITS | Clinical Summary ---
Author Organization [facility] Address [address] [place], [place] [id number] Care Team Providers Care Advisory Services Associate Name Role Phone Shaikh AUBREE Storm Primary Care Provider [phone] Ronaldo Alaniz MD Unavailable [phone] Constance Durand Unavailable Unavailable Allergies No known active allergies Medications aspirin 81 mg cap Take by mouth. 1 Active pravastatin (PRAVACHOL) 10 mg tablet pravastatin 10 mg tablet 1 Active amLODIPine (NORVASC) 10 mg tablet amlodipine 10 mg tablet 1 Active ergocalciferol , vitamin D2, (VITAMIN D2 ORAL) Take by mouth. Activ e HYDROcodone-ac etaminophen (NORCO) 5-325 mg per tablet Take 1 tablet by mouth two times a day as needed for pain. Active clopidogrel (PLAVIX) 75 mg tablet Take 75 mg by mouth once daily. Active lisinopril (ZESTRIL) 20 mg tablet Take 1 tablet by mouth once daily. 1 Active pregabalin (LYRICA) 50 mg capsule Take 1 capsule by mouth two times a day. Active baclofen (LIORESAL) 10 mg tablet baclofen 10 mg tablet 2 01/19/20 25 Discontin ued(Disco ntinued by Patient) oxyCODONE IR (ROXICODONE) 5 mg immediate release tablet TAKE 1 TO 2 TABLETS BY MOUTH EVERY 6 HOURS NEEDED for up to 7 (SEVEN) days 4 01/19/20 Discontin ued(Disco ntinued by Patient) Active Problems Problem Noted Date Diagnosed Date Stage 3 chronic kidney disease 11/19/2022 Prostate cancer 11/18/2022 Encounters Date Type Department Care Team Description 01/18/2025 9:45 AM EDT Office Visit Radiation Oncology [address] [place] [address] [place] [address] Hyun Raza MD Cancer of prostate w/med recur risk (T2b-c or [place] 7 or PSA 10-20) (HCC) (Primary Dx) 01/18/2025 Travel 01/11/2025 Travel 11/29/2024 Patient Msg Radiation Oncology [address] [place] [place] [address] Hyun Raza MD Appointment Cancellation Request 11/29/2024 Patient Msg Radiation Oncology [address] [place] [place] [address] Hyun Raza MD Appointment Cancellation Request 11/29/2024 Patient Msg Radiation Oncology [address] [place] [place] [address] Hyun Raza MD Appointment Cancellation Request from [...] PHQ-2 Answer Date Recorded PHQ-2 score 2 01/16/2025 Area Deprivation Index Answer Date Emigdio rded National Score (1-100), lower number is lower ri sk 61 11/18/2022 State Score (1-10), lower number is lower risk 4 11/18/2022 Data from: https://www.neighborhoodatlas.medicine.[facility]/. Last address used for calculation [address] 11/18/2022 Sex and Gender Information Value Date Recorded Sex Assigned at Male 01/15/2023 11:44 AM EDT Legal Sex Male 11:51 AM EDT Gender Identity Male 01/15/2023 11:44 AM EDT Sexual Orientation Straight 01/15/2023 11 :44 AM EDT Last Filed Vital Signs Vital Sign Reading Time Taken Comments Blood Pressure 150/75 01/18/2025 9:27 AM EDT Pulse 92 01/18/2025 9:27 AM EDT Temperature 37 C (98.6 F) 01/18/2025 9:27 AM EDT Respiratory Rate 16 01/18/2025 9:27 AM EDT Oxygen Saturation 96% 01/18/2025 9:27 AM EDT Inhaled Oxygen Concentration - - Weight 88.5 kg (195 lb 1.7 oz) 01/18/2025 9:27 A M EDT Height 177.8 cm (5' 10 ) 01/18/2025 9:27 AM EDT Body Mass Index 27.99 01/18/2025 9:27 AM EDT Plan of Treatment Upcoming Encounters Date Type Department Care Team (Late st Contact Info) Description 04/20/2025 9:45 AM EST Office Visit Radiation Oncology [address] [place] [place] [address] Hyun Raza MD [address] [place] [address] 3 month follow up Health Maintenance Due Date Last Done Comments [...] 11/18/2023, 0 11/05/2023, 10/01/2023, Additional history exists Procedures Procedure Name Priority Date/Time Associated Diagnosis Comments PSA/PROSTSPECAG DIAG Routine 01/12/2025 11:43 AM EDT Prostate cancer (HCC) from Last 3 Months Results * PROSTATE-SPECIFIC ANTIGEN DIAGNOSTIC (01/12/2025 11:43 AM EDT) PSA 1.56 <2.60 ng/mL 01/12/2025 10:52 PM EDT [facility] Comment:Total PSA test metho dology used is the Electrochemiluminescence Immunoassay by [employer]. Total PSA values by differing methodologies cannot be interchanged. Blood BLOOD SPECIMEN / Unknown Venipuncture / Unknown 01/12/2025 11:43 AM EDT 01/12/2025 11:43 AM EDT us G Jose Raza MD LABORATORY Final Resul t [facility] [address] [address], from Last 3 Months Insurance [employer] Care Teams Advisory Services Associate Relationship Specialty Start Date End Date Shaikh Storm MD [facility] [address] [place] [address] PCP - General Primary Care 12/06/21 Ronaldo Alaniz MD [address] [place] [address] Referring Urology 12/06/21 Constance Durand LSW Pet Store Merchandiser 03/04/22
--- OUTSIDE RECORDS SUMMARY | 2025-02-08 12:57 | XMS_ITS | Encounter Summary ---
Author Organization [facility] Address [address] [place] [address] Care Team Providers Care Assisted Living Manager Name Role Phone Brian Avalos MD Primary Care Provider [phone] Kayley Ward AUTOMOTIVE PAINTER Unavailable [phone] Encounter Details Date Type Department Care Team (Late st Contact Info) Description 08/10/2024 Orders Only [facility] [address] [facility] [place] [address] Claire James MD [address] [place] [address] Social History Tobacco Use Types Packs/Day Years [...] declined 01/20/2024 How often do you attend restoration or scientology serv ices? Patient declined 01/20/2024 Do you belong to any clubs o r organizations such as restoration groups, unions, fraternal or athletic groups, or [...] any time in the past 12 m [facility], were you homeless or living in a group home (including now)? No 01/20/2024 Sex and [...] documented as of this encounter Care Teams Assisted Living Manager Relationship Specialty Start Date End Date Brian Avalos MD PCP - General Family Medicine 01/12/24 Kayley Ward NP Nurse Practitioner Family Medicine 01/12/24 documented as of this encounter
--- OUTSIDE RECORDS SUMMARY | 2025-02-08 12:57 | XMS_ITS | Encounter Summary ---
Author Organization [facility] Address [address] [place] [address] Care Team Providers Care Medical Record Specialist Name Role Phone Shaikh AUBREE Mailk Primary Care Provider [phone] Shaikh AUBREE Malik Primary Care Provider rBian Avalos MD Primary Care Provider [phone] Kayley Ward NP Unavailable [phone] Encounter Details Date Type Department Care Team [...] PERFUSION STRESS TEST WITH LEXISCAN Performing facility: [facility], [address] [place] [address], [address], [place] [address] [facility] Provider: Sylvester Grayson DO, [facility] PCP: Dr. Agus MALIK Supervising provider: Inge Dickerson MD INDICATION: HTN, Bilateral Carotid, Chest Pain HISTORY: Gender: M; Age: 77 y/o ; Height: HT 177.8 cm cm; Weight: WT 89.812 kg kg. CAD; High Cholesterol; Abnormal EKG; RBBB Previous TX; Family HX CAD; Chest Pain; COPD; PAD, CVA, Carotid Disease, CKD Currently smoking. Cardiac catheterization. PTCA 1990s RCA. COMPARISON: No comparison. ACCESSION NUMBER(S): [id number] ORDERING CLINICIAN: VANDANA GRAYSON TECHNIQUE: ONE DAY [...] Inge Dickerson 06/19/2023 11:20 AM Dictation workstation: [id number] Procedure Note Radiology, Radiologist, - 06/19/2023 Interpreted By: Inge Dickerson and Beal Gina STUDY: MYOCARDIAL PERFUSION STRESS TEST WITH LEXISCAN Performing facility: [facility], [address] [place] [address], [address], [address] Provider: Sylvester Grayson DO, [facility] PCP: Dr. Agus MALIK Supervising provider: Inge Dickreson MD INDICATION: HTN, Bilateral Carotid, Chest Pain HISTORY: Gender: M; Age: 77 y/o ; Height: HT 177.8 cm cm; Weight: WT 89.812 kg kg. CAD; High Cholesterol; Abnormal EKG; RBBB Previous [place]; Family HX CAD; Chest Pain; COPD; PAD, CVA, Carotid Disease, CKD Currently smoking. Cardiac catheterization. PTCA 1990s RCA. COMPARISON: No comparison. ACCESSION NUMBER(S): [id number] ORDERING CLINICIAN: VANDANA GRAYSON TECHNIQUE: ONE DAY [...] Inge Dickerson 06/19/2023 11:20 AM Dictation workstation: [id number] us Generic External Data Provider IMG XR PROCEDURES Final Result documented in this encounter Visit Diagnoses Not on filedocumented in this encounter Care Teams Medical Record Specialist Relationship Specialty Start Date End Date Shaikh Malik MD PCP - General Internal Medicine 06/01/22 09/27/23 Shaikh Malik MD [address] [place] [address] PCP - General Internal Medicine 09/28/23 01/11/24 Brian Avalos MD [address] [place] [address] PCP - General Family Medicine 01/12/24 Kayley Ward NP [address] [place] [address] Nurse Practitioner Family Medicine 01/12/24 documented as of this encounter
--- OUTSIDE RECORDS SUMMARY | 2025-02-08 12:57 | XMS_ITS | Encounter Summary ---
Author Organization [facility] Address [address] [place] [address] Care Team Providers Care Curriculum And Assessment Coordinator Name Role Phone Shaikh AUBREE Storm Primary Care Provider [phone] Ronaldo Alaniz MD Unavailable [phone] Constance Durand Unavailable Unavailable Source Comments In the event this information is protected by the Federal Confidentiality of Alcohol and Drug AbusePatient Records regulations: The Federal rules restrict any use of the information to criminally investigate or prosecute any alcohol or drug abuse patient.[facility] Encounter Details Date Type Department Care Team (Late st Contact Info) Description 11/29/2024 Patient Msg Radiation Oncology [address] [place] [address] Hyun Raza MD [address] [place] [address] Appointment Cancellation Request Social History Tobacco [...] is lower risk 4 11/18/2022 Data from: https://www.neighborhoodatlas.medicine.[facility] [place]/. Last address used for calculation [address] [...] AM EST Office Visit Radiation Oncology [address] [facility] [place] [address] Hyun Raza MD [address] [place] [address] [place] [address] 3 month follow up documented as of this encounter Visit Diagnoses Not on filedocumented in this encounter Care Teams Curriculum And Assessment Coordinator Relationship Specialty Start Date End Date Shaikh Storm MD [address] [place] [address] PCP - General Primary Care 12/06/21 Ronaldo Alaniz MD [address] [place] [address] Referring Urology 12/06/21 Constance Durand LSW Cv Rn 03/04/22 documented as of this encounter
--- OUTSIDE RECORDS SUMMARY | 2025-02-08 12:57 | XMS_ITS | Encounter Summary ---
Author Organization [facility] Address [address] [place] [address] Phone Care Team Providers Care Trust Mail Clerk Name Role Phone Shaikh AUBREE Storm Primary Care Provider [phone] Encounter Details Date Type Department Care Team (Late st Contact Info) Description 03/23/2023 Scanned Document [facility] [address] [place] [address] Scanning, Generic Provider Social History Tobacco Use [...] Description 08/30/2025 10:00 AM EDT Office Visit [facility] [address] [place] [address] Chaim Grayson DO [address] [place], [place] [address] documented as of this encounter Visit Diagnoses Not on filedocumented in this encounter Care Teams Trust Mail Clerk Relationship Specialty Start Date End Date Shaikh Storm MD PCP - General Internal Medicine 06/04/23 documented as of this encounter
--- OUTSIDE RECORDS SUMMARY | 2025-02-08 12:57 | XMS_ITS | Encounter Summary ---
Author Organization [facility] Address [address] [facility] [place] [address] Care Team Providers Care Personal Care Aide Name Role Phone Shaikh AUBREE Storm Primary Care Provider [phone] Shaikh AUBREE Storm Primary Care Provider [phone] Brian Avalos MD Primary Care Provider Kayley Ward NP Unavailable [phone] Encounter Details Date Type Department Care Team (Late st Contact Info) Description 08/03/2023 Orders Only [facility] [address] [place] [address] Shaikh Storm MD [address] [place] [address] Social History Tobacco Use Types Packs/Day Years [...] Unknown Shaikh Dotty MAK LAB MICROBIOLOGY - [facility] Final Result documented in this encounter Visit Diagnoses Not on filedocumented in this encounter Care Teams Personal Care Aide Relationship Specialty Start Date End Date Shaikh Storm MD PCP - General Internal Medicine 06/01/22 09/27/23 Shaikh Storm MD [address] [place] [address] PCP - General Internal Medicine 09/28/23 01/11/24 Brian Avalos MD [address] [place] [address] PCP - General Family Medicine 01/12/24 Kayley Ward NP [address] [place] [address] Nurse Practitioner Family Medicine 01/12/24 documented as of this encounter
--- OUTSIDE RECORDS SUMMARY | 2025-02-08 12:57 | XMS_ITS | Clinical Summary ---
Author Organization [facility] Address [address] [place] [address] Care Team Providers Care Wool Dyer Name Role Phone Shaikh AUBREE Storm Primary Care Provider [phone] Allergies Active Allergy Reactions Criticality Noted Date Comments Ezetimibe GI intolerance High 04/27/2023 Other reaction(s): Nausea/vomiting Nflbwjn-Zuw-Lzq Reductase Inhibitors Other Medium 03/30/2023 Muscle/Joint Pain [...] 08/17/2023 Active ergocalciferol (Vitamin D-2) 1.25 MG (37795 Units) capsule Take 1,250 mcg by mouth [...] tablet Refills(s) 0 09/18/2023 Active HYDROcodone-nat taminophen ([place]) 7.5-325 mg tablet 1 tablet. 02/06/2023 Active [...] 28.0-28.9,adult 08/18/2023 Atherosclerotic heart diseas e of [place] coronary artery without angina pectoris 06/29/2023 Overview [...] hips on prolonged ambulation. Patient is on [place] for chronic pain. He was evaluated by NS at [facility] and it seemed like they were concerned about possible opioid induced hyperalgesia. Patient has been trying to wean himself off of [place] but if he does not use it [...] foraminal stenosis Will refer to NS at [facility]. Tobacco abuse 06/29/2023 Overview (11/05/2023): Last Assessment & Plan: He is using Nicotine patches currently. Trying to quite smoking. Will call in [employer] for the patient. Patient counseled on smoking/tobacco [...] and statin. Left leg revascularization 2022 at [facility]. Leg pain has improved and is doing well History of PA (myocardial infarction) 06/04/2023 Kidney disease 06/04/2023 Kidney [...] e alcohol) Have not drank for years [facility] Utilities Answer Date Recorded In the past 12 months has th e [employer], gas, oil, or water Learnerator threatened to shut off services in your [...] place to sleep or slept in a long term (including now)? No 01/12/2024 Hunger Vital Sign [...] Vaccines (1 of 2) 1995 COVID-19 Vaccine (3 - 2024-2 6 season) 2025 07/26/2020, 06/28/2020 Influenza Vaccine (#1) 2025 Depression [...] 12:45 PM 11/18/2023 2:28 PM Care Teams Wool Dyer Relationship Specialty Start Date End Date Shaikh Storm MD PCP - General Family Medicine 09/02/23
--- OUTSIDE RECORDS SUMMARY | 2025-02-08 12:57 | XMS_ITS | Encounter Summary ---
Author Organization [facility] Address [address] [facility] [place] [address] Care Team Providers Care Wire Tinner Name Role Phone Shaikh AUBREE Storm Primary Care Provider Shaikh AUBREE Storm Primary Care Provider Brian Avalos MD Primary Care Provider Kayley Ward NP Unavailable Encounter Details Date Type Department Care Team (Late st Contact Info) Description 07/29/2023 Orders Only [facility] [address] [place] [address] Shaikh Storm MD [address] [place] [address] Social History Tobacco Use Types Packs/Day Years [...] Unknown Shaikh Dotty MAK LAB MICROBIOLOGY - [facility] Final Result documented in this encounter Visit Diagnoses Not on filedocumented in this encounter Care Teams Wire Tinner Relationship Specialty Start Date End Date Shaikh Storm MD PCP - General Internal Medicine 06/01/22 09/27/23 Shaikh Storm MD [address] [place] [address] PCP - General Internal Medicine 09/28/23 01/11/24 Brian Avalos MD [address] [place] [address] PCP - General Family Medicine 01/12/24 Kayley Ward NP [address] [place] [address] Nurse Practitioner Family Medicine 01/12/24 documented as of this encounter
--- OUTSIDE RECORDS SUMMARY | 2025-02-08 12:57 | XMS_ITS | Encounter Summary ---
Author Organization [facility] Address [address] [place] [address] Care Team Providers Care Data Virtualization Consultant Name Role Phone Brian Avalos MD Primary Care Provider [phone] Kayley Ward MARINE ENGINEERING PROFESSOR Unavailable [phone] Encounter Details Date Type Department Care Team (Late st Contact Info) Description 09/05/2024 Orders Only [facility] [address] [facility] [place] [address] lCaire James MD [address] [place] [address] Social History Tobacco Use Types Packs/Day Years [...] declined 01/20/2024 How often do you attend jain or presybeterian serv ices? Patient declined 01/20/2024 Do you belong to any clubs o r organizations such as jain groups, unions, fraternal or athletic groups, or [...] in the past 12 m [facility], were you homeless or living in a chcf (including now)? No 01/20/2024 Sex and Gender [...] documented as of this encounter Care Teams Data Virtualization Consultant Relationship Specialty Start Date End Date Brian Avalos MD PCP - General Family Medicine 01/12/24 Kayley Ward NP Nurse Practitioner Family Medicine 01/12/24 documented as of this encounter
--- OUTSIDE RECORDS SUMMARY | 2025-02-08 12:57 | XMS_ITS | Encounter Summary ---
Author Organization [facility] Address [address] [place] [address] Phone Care Team Providers Care Pump Service Supervisor Name Role Phone Shaikh AUBREE Storm Primary Care Provider [phone] Encounter Details Date Type Department Care Team (Late st Contact Info) Description 03/09/2023 Scanned Document [facility] [address] [place] [address] Scanning, Generic Provider Social History Tobacco Use [...] Description 08/30/2025 10:00 AM EDT Office Visit [facility] [address] [place] [address] Chaim Grayson DO [address] [place], [place] [address] documented as of this encounter Visit Diagnoses Not on filedocumented in this encounter Care Teams Pump Service Supervisor Relationship Specialty Start Date End Date Shaikh Storm MD PCP - General Internal Medicine 06/04/23 documented as of this encounter
--- OUTSIDE RECORDS SUMMARY | 2025-02-08 13:20 | XMS_ITS | CCD ---
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 Name Role Phone Sterling Vizcaino Primary Care Physician Theo Thakkar Unavailable Dotty MAK [facility] Primary Care Provider Barbara Johnston MD Unavailable [phone] YAHAIRA STORMIKH Primary Care Physician Dotty MAK [facility] Primary Care Provider Barbara Johnston MD Unavailable Constance Beverly Unavailable Unavailable Dotty MAK [facility] Primary Care Provider Barbara Johnston MD Unavailable Constance Beverly Unavailable Unavailable MD Dotty [facility] Primary Care Provider MD Zeinab Justice Attending Provider [phone] MD Lyla Nazario Attending Provider LAKSHMIPATHY ., NARENDRANATH Attending Kiera vailable LAKSHMIPATHY ., NARENDRANATH Admitting Kiera vailable JOHN .HUBERT Consulting [facility] Primary Care Unavailable KRISTEN ., DR HOSEA Davison Admitting Unavailable ANJEL .BERNIE Consulting Unavailable KRISTEN ., DR HOSEA Davison Attending Unavailable [facility] Primary Care Unavailable OLIVA ., DR HOSEA Davison Admitting Unavailable OLIVA ., DR HOSEA Davison Consulting Unavailable [facility] Primary Care Unavailable KRISTEN ., DR HOSEA Davison Attending Unavailable [facility] Consulting Unavailable HOBBS ., BERNIE Consulting Unavailable OLIVA ., DR HOSEA Davison Attending Unavailable OLIVA ., DR HOSEA Davison Admitting [facility] Primary Care Unavailable OLIVA ., DR HOSEA Davison Consulting Unavailable OLIVA ., DR HOSEA Davison Admitting Unavailable OLIVA ., DR HOSEA Davison Consulting Un[facility] Primary Care Unavailable OLIVA ., DR HOSEA Davison Attending Unavailable [facility], [facility] Consulting Unavailable JONATHAN MARTIN Consulting Unavailable HOBBS ., BERNIE Consulting Unavailable OLIVA ., DR HOSEA Davison Admitting Unavailable [facility], [facility] Primary Care Unavailable OLIVA ., DR HOSEA Davison Attending Unavailable HOBBS ., BERNIE Consulting Unavailable OLIVA ., DR HOSEA Davison Attending Unavailable OLIVA ., DR HOSEA Davison Admitting [facility] Primary Care Unavailable OLIVA ., DR HOSEA Davison Attending Unavailable OLIVA ., DR HOSEA Davison Admitting [facility] Primary Care Unavailable OLIVA ., DR HOSEA Davison Consulting Unavailable HOBBS ., BERNIE Consulting Unavailable OLIVA ., DR HOSEA Davison Attending Unavailable OLIVA ., DR HOSEA Davison Admitting [facility] Primary Care Unavailable OLIVA ., DR HOSEA Davison Admitting Unavailable [facility] Primary Care Unavailable OLIVA ., DR HOSEA Davison Attending Unavailable OLIVA ., DR HOSEA Davison Admitting Unavailable OLIVA ., DR HOSEA Davison Consulting Un[facility] Primary Care Unavailable OLIVA ., DR HOSEA Davison Attending Unavailable [facility], [facility] Primary Care Unavailable JOHNSTON ., DR JIMENEZ Consulting Unavailable JOHNSTON ., DR JIMENEZ Attending Unavailable JOHNSTON ., DR JIMENEZ Admitting Unavailable VIVIAN, THEO Consulting Unavailable VIVIANNIXONUL Attending Unavailable VIVIAN, THEO Admitting Unavailable [facility] Primary Care Unavailable RUT KIRBY Attending Unavailable RUT KIRBY Admitting Unavailable [facility] Primary Care Unavailable MD Justice Storm Primary Care Provider MD Justice Storm Other Provider ABE Ferrera Attending Provider Anesthesiologist, Temporary Attending Provider U prabhu Bonnie Tan Unavailable MD Lyla Nazario Attending Provider MD Jose Martin Mchugh Attending Provider MD Theo Thakkar Attending Provider Jose Martin Mchugh Unavailable [phone] MD Dotty [facility] Primary Care Provider Anesthesiologist, Temporary Attending Provider U MD Lyla Carvalho Attending Provider MD Jose Martin Mchugh Attending Provider MD Theo Thakkar Attending Provider [phone] MD Yahaira Stormikh Primary Care Provider MD Justice Storm Attending Provider Dotty MAK [facility] Primary Care Provider JOSE NICHOLS Referring Unavailable [facility] Primary Care Unavailable KODI REYNOLDS Attending Unavailable [facility] Provider CHAIM GRAYSON Referring Unavailable [facility] Care Unavailable CHAIM GRAYSON Referring Unavailable [facility] Primary Care Unavailable CHAIM GRAYSON Referring Unavailable [facility] Primary Care Unavailable Nicolette MAK, Adalid Powers Attending Unavailable Dotty MAK [facility] Primary Care Provider MD Yahaira Stormikh Primary Care Provider MD Justiec Storm Attending Provider MD Barbara Johnston Referring Provider Yahaira Storm MDikh Primary Care Provider NO FAMILY, PHYSICIAN Primary Care Provider Unava ilMD Theo Grigsby Attending Provider [phone] [facility] Primary Care P hysician Barbraa JOHNSTON Attending Unavailable [facility] Unavailabl e BRITNI, CLAIRE E Admitting Unavailable BRITNI, CLAIRE E Attending Unavailable BRITNI, CLAIRE E Admitting Unavailable BRITNI, CLAIRE E Attending Unavailable Galthao, Karime Stone Admitting Unavailable Galthao, Karime Stone Attending Unavailable [facility] Unavailabl e Barbara JOHNSTON Attending Unavailable BRITNI, CLAIRE E Attending Unavailable Galthao, Karime Stone Attending Unavailable [facility] Unavailabl elbert Avalos MD, Brian Primary Care Provider [phone] Ed VP RHEUMATOLOGY, Nasir Unavailable [phone] Brian Avalos MD Primary Care Provider [phone] Farooq Quezada PA-C Emergency Provider NASIR WARD Attending Unavailabl SHAIKH Schmidt Attending Unavailable SHAIKH STORM Attending Unavailable NASIR WARD Attending Unavailabl e NASIR WARD Attending Unavailabl AMBROSIO Galvan Primary Care Physician [phone] Brian Avalos MD Primary Care Provider Farooq Quezada PA-C Emergency Provider Theo Thakkar MD Attending Provider [phone] Barbara JOHNSTON Attending Unavailable [facility] Unavailabl e BRITNI, CLAIRE E Attending Unavailable [facility] BRITNI, CLAIRE E Admitting Unavailable BRITNI, CLAIRE E Attending Unavailable VASILE MADERA Attending Unavailable MADERA, VASILE Referring Unavailable MADERA, VASILE Referring Unavailable MADERA, VASILE Referring Unavailable MADERA, VASILE Referring Unavailable MADERA, VASILE Referring Unavailable OVITT, JOELLEN Attending Unavailable MADERA, VASILE Admitting Unavailable MADERA, VASILE Attending Unavailable OVITT, JOELLEN Attending Unavailable MADERA, VASILE Attending Unavailable JOELLEN BENÍTEZ Attending Unavailable Cherie William Attending Unavailable Cherie William Admitting Unavailable Barbara JOHNSTON Attending Unavailable Dotty MAK, [facility] Primary Care Provider CLAIRE JAMES Attending Unavailable CLAIRE JAMES Admitting Unavailable JOSE HECTOR Attending Unavailable CHAIM GRAYSON Referring Unavailable FER[facility]NDAMARIA ISABEL [facility] Primary Care Unavailable Ed HANSON, Nasir Unavailable [phone] HUANG JAMES Attending Unavailab Barbara Lynn MD Unavailable Hyun NAZARIO Attending Unavailable DOTTY [facility] Primary Care Unavailable Hyun NAZARIO Referring Unavailable DOTTY CARREON Primary Care Unavailable Farooq Quezada Admitting Unavailable NadshahzadrBrian Primary Care Unavailable Farooq Quezada Attending Unavailable Brian Avalos Primary Care Unavailable Vivian Theo Admitting Unavailable VivianTheo Attending Unavailable NO FAMILY, PHYSICIAN Primary Care Unavailable Vivian Theo Attending Unavailable Vivian, Theo Admitting Unavailable Allergies Allergy Classification Reported Allergen(s) Allergy Type Date of Onset Reaction(s) Facility (20 sources) ezetimibe; Translations: [EZETIMIBE] Drug Allergy 3 GI intolerance, Nausea/vomiting [facility] (8 sources) HMG-CoA reductase inhibitor; Translations: [[id number] A REDUCTASE INHIBITORS] Drug Intolerance 3 Other [facility] Work Phone: (13 sources) HMG-CoA reductase inhibitor Drug Intolerance 3 Other [facility] Healthcare Medications Current Medications Medication Drug Class(es) Dates Sig (Normalized) Sig (Original) acetaminophen 325 mg oral tablet (12 sources) Start: 11-18-2023 take 2 tablets by mouth every eight hours acetaminophen (Tylenol) 325 MG tablet Take 650 mg by mouth every 8 (eight) hours 11/18/2023 Active acetaminophen 325 mg / HYDROcodone bitartrate 5 mg oral tablet (20 sources) Opioid Agonist Start: 02-29-2024 take 1 tablet by mouth once daily as needed Hydrocodone-Acetami nophen 5-325 mg tablet Active 1 TAB PO Daily as needed February 29, 2024 12:00am Start: 01-14-2024 End: 07-13-2024 HYDROcodone-acetaminophen (N orco) 5-325 MG tablet TAKE 1 TABLET BY MOUTH 2 TO 3 TIMES A DAY FOR 14 DAYS 01/14/2024 07/13/2024 Discontinued Start: 01-08-2023 End: 02-29-2024 take 1 tablet by mouth three times daily as needed for pain Hydrocodone-Acetaminophen 7.5-325 mg tab let Discontinued 1 TAB PO Three times daily as needed for Pain February 06, 2023 12:00am February 29, 2024 11:39am Start: 11-09-2021 End: 02-06-2023 take 1 tablet by mouth twice daily as needed for pain Hydrocodone-Acetaminophen 5-325 mg table t Discontinued 1 TAB PO Twice daily as needed for Pain November 22, 2021 12:00am February 06, 2023 11:57am Start: 11-09-2021 End: 12-15-2023 HYDROcodone-acetaminophen (N ORCO) 5-325 mg per tablet 11/09/2021 12/15/2023 Discontinued (Discontinued by another Health Care Provider) Start: 03-22-2021 take 1 tablet by leslie th every six hours [place] 5/325 Tab Oral, q6hr, Refill(s) 0 Start Date: 03/22/21 Status: Ordered Repeat number: 1 Start: 03-22-2021 [place] 5/325 Ta b Oral, q6hr, Refill(s) 0 Start Date: 03/22/21 Status: Ordered Start: 03-22-2021 [place] 5/325 Ta b Oral, q6hr, Refill(s) 0 Start Date: 03/22/21 Status: Ordered take 1 tablet by leslie th every six hours as needed [place] 5-325 MG 1 tablet as needed Orally every 6 hrs Active Comment on above: TAKE 1 TABLET BY LESLIE TH TWICE DAILY NEEDED FOR LUMBAR RADICULOPATHY TAKE 1 TABLET BY LESLIE TH THREE TIMES DAILY NEEDED MUST LAST 30 DAYS amLODIPine 10 mg oral tablet (20 sources) Dihydropyridine Calcium Channel Jimy Start: take 1 mg by mouth once daily amLODIPine 5 mg Tab mg tab(s), Oral, Daily, Refills(s) 0 Start Date: 03/22/21 Status: Ordered Start: 03-22-2021 End: 03-09-2025 amLODIPine (NORVASC) 10 mg t ablet amlodipine 10 mg tablet 03/22/2021 Active Comment on above: amlodipine 10 [...] Refills(s) 0 Start Date: 03/22/21 Status: Ordered Repeat number: 1 Start: 03-22-2021 aspirin 81 mg cap Take by mouth. 03/22/2021 Active ASPIRIN 81 MG ch ewable tablet Chew 81 mg in the morning. Active take 1 tablet by leslie th once daily Aspirin 81 81 MG 1 tablet Orally Once a day Active Comment on above: Take by mouth. cephalexin 500 mg oral capsule (1 source) Cephalosporin Antibacterial Start: 08-09-19 End: 08-16-19 take 1 capsule by mouth every twelve hours Keflex 500 mg Cap 500 mg = 1 cap(s), Oral, q12hr, X 7 day(s), # 14 cap(s), Refills(s) 0, Pharmacy: [facility]/pharmacy #[id number], 178, cm, 08/08/24 12:38:00 EDT, Height/Length Dosing, 90.4, kg, 08/08/24 12:38:00 EDT, Weight Dosing Start Date: 08/08/24 Stop Date: 08/15/24 Status: Ordered ciprofloxacin 500 mg oral tablet (1 source) Quinolone Antimicrobial Start: 05-13-20 End: 05-27-20 take 1 tablet by mouth twice daily ciprofloxacin HCl (CIPRO) 500 mg tablet Take 1 tablet by mouth twice daily for 14 days. 20 tablet 0 05/13/2022 05/27/2022 Active Comment on above: Take 1 tablet by leslie th twice daily for 14 days. clopidogrel 75 mg oral tablet (20 sources) P2Y12 Platelet Inhibitor Start: 03-23-20 End: 08-18-19 take 1 tablet by mouth in the morning clopidogrel (Plavix) 75 MG tablet Take 75 mg by mouth in the morning. 04/21/2023 Active Clopidogrel Bisu lfate Active Cranberry preparation (4 sources) Non-Standardized Food Allergenic Extract, Non-Standardized Plant Allergenic Extract Start: 09-18-2023 Azo cranberry Refill(s) 0 Start Date: 09/18/23 Status: Ordered desmopressin acetate 0.1 mg oral tablet (7 sources) Vasopressin Analog, Factor VIII Activator Start: 05-05-2023 End: 08-30-2024 take 1 tablet by mouth once daily at bedtime desmopressin (DDAVP) 0.1 mg tablet Take 1 tablet (100 mcg) by mouth once daily at bedtime. 05/05/2023 08/30/2024 Discontinued (Therapy completed) Start: 04-21-2023 End: 05-01-2023 take 0.5 tablet by mouth at bedtime desmopressin 0.1 mg oral tablet 0.05 mg = 0.5 tab(s), Oral, As Directed, take a half tab at bedtime, X 10 day(s), # 5 tab(s), Refills(s) 0, Pharmacy: [facility] #[id number], 178, cm, 04/21/23 8:36:00 EST, Height/Length [...] by mouth one hour prior to procedure. doxycycline hyclate 100 mg oral capsule (6 sources) Tetracycline-class Drug Start: 04-07-2024 End: 04-14-2024 take 1 capsule by mouth twice daily doxycycline hyclate 100 mg Cap 100 mg = 1 cap(s), Oral, BID, X 7 day(s), # 14 cap(s), Refills(s) 0, Pharmacy: [facility] #[id number], 178, cm, 09/18/23 10:55:00 EDT, Height/Length Dosing, 92, kg, 09/18/23 10:55:00 EDT, Weight Dosing Start Date: 04/07/24 Stop Date: 04/14/24 Status: Ordered Start: 02-29-2024 End: 08-15-2024 take 1 tablet by mouth twice daily Doxycycline Hyclate 100 mg tablet Discontinued 100 MG PO Twice daily February 29, 2024 12:00am August 15, 2024 10:38am Ergocalciferol (20 sources) Provitamin D2 Compound Start: 03-11-2024 take 1 capsule by mouth every week Ergocalciferol (Vitamin D2) 1,250 mcg (50,000 unit) capsule Active 0 .ROUTE .COMPLEX March 11, 2024 10:14am TAKE 1 CAPSULE BY MOUTH ONCE A WEEK Start: 03-11-2024 take 1 capsule by [facility] every week Ergocalciferol (Vitamin D2) 1,250 mcg (50,000 unit) capsule Active 0 .ROUTE .COMPLEX March 11, 2024 9:14am TAKE 1 CAPSULE BY MOUTH ONCE A WEEK Start: 09-15-2023 End: 03-11-2024 Ergocalciferol (Vitamin D2) 1,250 mcg (50,000 unit) capsule Discontinued [id number] UNIT PO Once a week September 15, 2023 5:43pm March 11, 2024 10:15am Start: 09-15-2023 End: 09-15-2023 take 01945 [IU] by mouth every week Ergocalciferol (Vitamin D2) Active [id number] UNIT PO Once a week September 15, 2023 5:43pm Start: 03-10-2023 take 1 capsule by mo [facility] every week Ergocalciferol 1.25 MG (54452 UT) 1 capsule Orally Q week for 90 days Mar, Active take 1 capsule by mo uth every week ergocalciferol (Vitamin D-2) 1.25 MG (00862 UT) capsule Take 1 capsule (1,250 mcg) by mouth 1 (one) time per week. Active ergocalciferol, vitamin D2, (VITAMIN D2 ORAL) (4 sources) ergocalciferol, vitamin D2, (VITAMIN D2 ORAL) Take by mouth. Active ergocalciferol, vitamin D2, (VITAMIN D2 ORAL) Take by mouth. 0 Active Comment on above: Take by mouth. ezetimibe 10 mg oral tablet (2 sources) Dietary Cholesterol Absorption Inhibitor Start: 1 take 1 mg by mouth once daily ezetimibe 10 mg Tab mg tab(s), Oral, Daily, Refills(s) 0 Start Date: 03/25/21 Status: Ordered gabapentin 100 mg oral capsule (20 sources) Anti-epileptic Agent Start: 3 End: 5 take 1 capsule by mouth twice daily gabapentin (Neurontin) 100 mg capsule Take 1 capsule (100 mg) by mouth 2 times a day. 02/11/2023 08/30/2024 Discontinued (Therapy completed) Start: 02-06-2023 End: 08-15-2024 take 1 capsule by mouth once daily Gabapentin 100 mg Capsule Discontinued 100 MG PO Daily February 06, 2023 12:00am August 15, 2024 10:38am Start: 02-06-2023 take 1 mg by mouth [...] in the MR contrast administration guidelines link. lisinopril 20 mg oral tablet (20 sources) Angiotensin Converting Enzyme Inhibitor Start: 03-25-2021 End: 12-15-2023 lisinopril (ZESTRIL, PRINIVIL) 20 mg tablet q 24 HR. 03/25/2021 12/15/2023 Discontinued (Discontinued by another Health Care Provider) Start: 03-25-2021 End: 10-15-2023 take 1 tablet by mouth once daily lisinopril (ZESTRIL) 20 mg tablet Take 1 tablet by mouth once daily. 03/25/2021 Active Comment on above: q 24 HR. montelukast 10 mg oral tablet (2 sources) Leukotriene Receptor Antagonist Start: take 1 mg by mouth once daily montelukast 10 mg Tab mg tab(s), Oral, Daily, Refills(s) 0 Start Date: 03/25/21 Status: Ordered nitroglycerin 0.4 mg sublingual tablet (10 sources) Nitrate Vasodilator Start: nitroglycerin 0.4 mg sublingual Tab Refills(s) 0 Start Date: 09/18/23 Status: Ordered Repeat number: 1 Start: 08-18-2023 End: 08-17-2024 nitroglycerin (Nitrostat) 0. 4 mg SL tablet Indications: Chest pain, unspecified type Place 1 tablet (0.4 mg) under the tongue every 5 minutes if needed for chest pain. May repeat dose every 5 minutes for up to 3 doses total. 100 tablet 11 08/18/2023 Active Oxybutinin XL 5mg (4 sources) Oxybutinin XL 5m g ONCE A DAY Active Oxybutinin XL 5m g Active oxybutynin chloride 5 mg oral tablet (16 sources) Cholinergic Muscarinic Antagonist Start: 02-11-2023 take 2 tablets by mouth at bedtime oxybutynin 5 mg Tab 10 mg = 2 tab(s), Oral, Bedtime, # 60 tab(s), Refills(s) 3, Pharmacy: [facility] #[id number], 178, cm, 02/11/23 14:50:00 EDT, Height/Length Dosing, 92, kg, 02/11/23 14:50:00 EDT, Weight Dosing Start Date: 02/11/23 Status: Ordered Start: 02-06-2023 End: 10-15-2023 take 1 tablet by mouth once daily at bedtime Oxybutynin Chloride 5 mg Tablet Discontinued 5 MG PO Daily at bedtime February 06, 2023 12:00am October 15, 2023 9:17am Start: 12-03-2022 take 1 tablet by leslie th at bedtime oxybutynin 5 mg Tab 5 mg = 1 tab(s), Oral, Bedtime, # 30 tab(s), Refills(s) 2, Pharmacy: [facility] #[id number], 178, cm, 12/03/22 15:00:00 EDT, Height/Length Dosing, 93, kg, 12/03/22 15:00:00 EDT, Weight Dosing Start Date: 12/03/22 Status: Ordered pravastatin sodium 40 mg oral tablet (20 sources) HMG-CoA Reductase Inhibitor Start: 03-23-2023 End: 08-17-2024 pravastatin 40 mg Tab Refills(s) 0 Start Date: 04/21/23 Status: Ordered Repeat number: 1 Start: 03-22-2021 End: 03-23-2023 pravastatin (PRAVACHOL) 10 m g tablet pravastatin 10 mg tablet 03/22/2021 Active Comment on above: pravastatin 10 mg ta blet sildenafil 50 mg oral tablet (7 sources) Phosphodiesterase 5 Inhibitor Start: 04-21-20 End: 08-31-19 sildenafil (Viagra) 50 mg tablet Take 1 tablet (50 mg) by mouth if needed. 04/21/2023 08/30/2024 Discontinued (Therapy completed) tadalafil 20 mg oral tablet (4 sources) Phosphodiesterase 5 Inhibitor Start: 07-07-19 Cialis 20 mg Tab 20 mg = 1 tab(s), Oral, As Directed, Do not exceed 20mg within 48 hours., # 30 tab(s), Refills(s) 1, Pharmacy: [facility] #[id number], 178, cm, 07/07/23 9:25:00 EST, Height/Length Dosing, 92, kg, 07/07/23 9:25:00 EST, Weight Dosing Start Date: 07/07/23 Status: Ordered valsartan 80 mg oral tablet (20 sources) Angiotensin 2 Receptor Jimy Start: 06-04-19 End: 08-18-19 take 1 tablet by mouth in the morning valsartan (Diovan) 80 MG tablet Take 80 mg by mouth in the morning. 06/04/2023 Active varenicline 1 mg oral tablet (10 sources) Partial Cholinergic Nicotinic Agonist Start: 10-22-19 End: 04-21-20 take 1 tablet by mouth once daily Varenicline Tartrate, Starter, (Chantix Starting Mickey) 0.5 MG X 11 & 1 MG X 42 tablet therapy pack Indications: Tobacco abuse Take 1 tablet by mouth Daily 53 each 01/20/2024 02/19/2024 Active Varenicline (Chantix Starting Month Box) 0.5 mg (11)- 1 mg (42) tablets,dose pack (1 source) Start: 02-29-20 take 1 tablet by mouth once Varenicline (Chantix Starting Month Box) 0.5 mg (11)- 1 mg (42) tablets,dose pack Active 0 PO per package directions February 29, 2024 12:00am PO PER PKG DIR vitamin B12 (2 sources) Vitamin B12 Start: 03-22-20 Vitamin B12 Refills(s) 0 Start Date: 03/22/21 Status: Ordered Vitamin D2 50,000 intl units (1.25 mg) oral capsule (9 sources) Start: 04-21-20 take 1 capsule by mouth every week Vitamin D2 50,000 intl units (1.25 mg) oral capsule International_Unit cap(s), Oral, qWeek Start Date: 04/21/23 Status: Ordered Repeat number: 1 Start: 04-21-2023 take 1 capsule by [facility] every week Vitamin D2 50,000 intl units (1.25 mg) oral capsule International_Unit cap(s), Oral, qWeek Start Date: 04/21/23 Status: Ordered Completed/Discontinued Medications Medication Drug Class(es) Dates Sig (Normalized) Sig (Original) atenolol 50 mg oral tablet (20 sources) beta-Adrenergic Jimy Start: 03-22-2021 End: 12-15-2023 take 1 tablet by mouth once daily Atenolol 50 mg tablet Discontinued 50 MG PO Daily November 22, 2021 12:00am October 15, 2023 9:17am Comment on above: atenolol 50 mg table t baclofen 10 mg oral tablet (20 sources) gamma-Aminobutyri c Acid-ergic Agonist Start: 11-04-2021 End: 01-18-2025 baclofen (LIORESAL) 10 mg tablet baclofen 10 mg tablet 11/04/2021 01/18/2025 Discontinued (Discontinued by Patient) Start: 11-04-2021 End: 07-13-2024 take 1 mg by mouth three times daily baclofen 10 mg Tab mg tab(s), Oral, TID, Refills(s) 0 Start Date: 11/04/21 Status: Ordered Comment on above: baclofen 10 mg table t ofloxacin 3 mg/ml ophthalmic solution (3 sources) Quinolone Antimicrobial Start: 07-14-19 End: 08-16-19 take 0.3 drop(s) into the eye(s) every six hours Ofloxacin 0.3 % drops Discontinued 2 DROPS EYE-LEFT Every 6 hours July 14, 2024 1:00am August 15, 2024 10:38am 2 drps Left Eye; omeprazole 40 mg delayed release oral capsule (14 sources) Proton Pump Inhibitor Start: 09-28-19 End: 04-21-20 take 1 capsule by mouth once daily Omeprazole 40 mg capsule,delayed release(DR/EC) Discontinued 40 MG PO Daily October 15, 2023 12:00am February 29, 2024 11:41am oxyCODONE hydrochloride 5 mg oral tablet (9 sources) Opioid Agonist Start: 12-02-19 End: 01-19-20 take 1 tablet by mouth every six hours as needed oxyCODONE IR (ROXICODONE) 5 mg immediate release tablet TAKE 1 TO 2 TABLETS BY MOUTH EVERY 6 HOURS NEEDED for up to 7 (SEVEN) days 12/02/2023 01/18/2025 Discontinued (Discontinued by Patient) pregabalin 75 mg oral capsule (20 sources) Start: 01-09-20 End: 12-15-19 take 1 capsule by mouth once daily at bedtime pregabalin (LYRICA) 75 mg capsule Take 1 capsule by mouth once daily. At bedtime. 0 01/08/2023 12/15/2023 Discontinued (Discontinued by another Health Care Provider) Start: 11-22-2021 End: 05-19-2023 take 1 capsule by mouth twice daily Pregabalin 50 mg capsule Discontinued 50 MG PO Twice daily November 22, 2021 12:00am February 06, 2023 11:58am Start: 11-04-2021 take 1 capsule by mo [facility] twice daily Lyrica 25 mg Cap 25 mg = 1 cap(s), Oral, BID, # 60 cap(s), Refills(s) 0 Start Date: 11/04/21 Status: Ordered Comment on above: Take 50 mg by mouth twice daily. Take 1 capsule by mo [facility] once daily. At bedtime. Take 50 mg by mouth two times a day. regadenoson (Lexiscan) injection 0.4 mg (2 sources) Start: 06-18-2023 End: 06-18-2023 regadenoson (Lexiscan) injection 0.4 mg terazosin 10 mg oral capsule (20 sources) alpha-Adrenergic Jimy Start: 10-04-2021 End: 12-15-2023 take 1 capsule by mouth once daily at bedtime Terazosin 10 mg capsule Discontinued 10 MG PO Daily at bedtime November 22, 2021 12:00am October 15, 2023 9:17am Start: 03-22-2021 take 1 mg by mouth o nce daily at bedtime terazosin 2 mg Cap mg cap(s), Oral, Once a day (at bedtime), Refills(s) 0 Start Date: 03/22/21 Status: Ordered Varenicline Tartrate (Chantix Starting Month Box) 0.5 mg (11)- 1 mg (42) tablets,dose pack (3 sources) Start: 02-29-2024 End: 08-15-2024 take 1 tablet by mouth once Varenicline Tartrate (Chantix Starting Box) 0.5 mg (11)- 1 mg (42) tablets,dose pack Discontinued 0 PO per package directions February 29, 2024 12:00am August 15, 2024 10:38am PO PER PKG DIR Start: 02-29-2024 take 1 tablet by mouth once Va renicline Tartrate (Chantix Starting Box) 0.5 mg (11)- 1 mg (42) tablets,dose pack Active 0 PO per package directions February 29, 2024 12:00am PO PER PKG DIR Start: 02-29-2024 take 1 tablet by mouth once Va renicline Tartrate (Chantix Starting Month Box) 0.5 mg (11)- 1 mg (42) tablets,dose pack Active 0 PO per package directions February 28, 2024 11:00pm PO PER PKG DIR Problems Active Problems Problem Classification Problem Date Documented Date Episodic/Chronic Abdominal hernia (18 sources) Umbilical hernia; Translations: [Umbilical hernia without obstruction or gangrene] Onset: 06-04-1903-25-2021 Episodic Acute cerebrovascular disease (18 sources) Cerebrovascular accident; Translations: [Cerebral infarction, unspecified] Onset: 06-04-1906-04-2023 Chronic Anxiety disorders (18 sources) Anxiety; Translations: [Anxiety disorder, unspecified] Onset: 06-04-1903-22-2021 Chronic Cancer of prostate (20 sources) Malignant neoplasm of prostate; Translations: [Malignant tumor of prostate] Onset: 11-05-19 Chronic Cataract (20 sources) Age-related nuclear cataract of left eye; Translations: [Age-related nuclear cataract, left eye] Onset: 09-28-1909-28-2023 Chronic Chronic kidney disease (20 sources) Chronic kidney disease stage 3; Translations: [Stage 3 chronic kidney disease] Onset: 11-20-19 23 11-19-2022 Chronic Chronic kidney disease (6 sources) Chronic kidney disease; Translations: [Chronic kidney disease, stage III (moderate)] Onset: 10-25-19 Resolved : 10-25-19 Coronary atherosclerosis and other heart disease (20 sources) History of myocardial infarction; Translations: [Old myocardial infarction] Onset: 06-04-1906-04-2023 Chronic Deficiency and other anemia (1 source) Anemia in chronic kidney disease; Translations: [Anemia in chronic kidney disease] Onset: 08-11-19 Chronic Disorders of lipid metabolism (20 sources) Hyperlipidemia; Translations: [Dyslipidemia] Onset: 10-25-19 Resolved : 10-25-1903-22-2021 Chronic Esophageal disorders (15 sources) Gastroesophageal reflux disease without esophagitis; Translations: [Gastro-esophageal reflux disease without esophagitis] Onset: 09-28-19 24 09-28-2023 Chronic Essential hypertension (20 sources) Hypertensive disorder; Translations: [Essential (primary) hypertension] Onset: 04-27-20 23 03-22-2021 Chronic Genitourinary symptoms and ill-defined conditions (20 sources) Nocturia; Translations: [Nocturia] Onset: 11-05-19 Episodic Hyperplasia of prostate (20 sources) Benign prostatic hypertrophy with outflow obstruction; Translations: [Benign prostatic hyperplasia with lower urinary tract symptoms] Onset: 11-05-19 Chronic Hypertension with complications and secondary hypertension (17 sources) Chronic kidney disease due to hypertension; Translations: [Hypertensive chronic kidney disease with stage 1 through stage 4 chronic kidney disease, or unspecified chronic kidney disease] Onset: 10-25-19 Resolved : 10-25-19 Chronic Inflammatory conditions of male genital organs (18 sources) Chronic prostatitis; Translations: [Chronic prostatitis] Onset: 06-04-1905-13-2021 Chronic Inflammatory conditions of male genital organs (13 sources) Prostatitis 03-25-2021 Episodic Nephritis; nephrosis; renal sclerosis (5 sources) 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; Translations: [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] Onset: 06-04-1906-04-2023 Chronic Occlusion or stenosis of precerebral arteries (2 sources) Occlusion and stenosis of unspecified carotid artery; Translations: [Occlusion and stenosis of unspecified carotid artery] Onset: 11-05-19 Chronic Open wounds of head; neck; and trunk (3 sources) Laceration of left cornea; Translations: [Ocular laceration without prolapse or loss of intraocular tissue, left eye, initial encounter] 07-14-2024 Episodic Other acquired deformities (1 source) Lumbar spondylolisthesis; Translations: [Spondylolisthesis, lumbar region] 06-12-2023 Episodic Other acquired deformities (1 source) Spondylolisthesis, lumbar region; Translations: [Spondylolisthesis of lumbar region] Onset: 06-12-19 Episodic Other aftercare (1 source) Encounter for surgical aftercare following surgery on the circulatory system Episodic Other and ill-defined heart disease (20 sources) Heart disease; Translations: [Heart disease, unspecified] Onset: 06-04-19 Resolved : 08-31-1903-22-2021 Chronic Other circulatory disease (20 sources) Disorder of carotid artery; Translations: [Disorder of arteries and arterioles, unspecified] Onset: 06-04-1906-04-2023 Chronic Other circulatory disease (4 sources) Disorder of arteries and arterioles, unspecified; Translations: [Disorder of arteries and arterioles, unspecified (CMS/HCC)] Onset: 06-04-19 Chronic Other diseases of kidney and ureters (8 sources) Secondary hyperparathyroidism; Translations: [Secondary hyperparathyroidism of renal origin] 02-29-2024 Chronic Other diseases of kidney and ureters (6 sources) Secondary hyperparathyroidism of renal origin; Translations: [Secondary hyperparathyroidism (of renal origin)] Onset: 10-25-19 Resolved : 10-25-19 Chronic Other diseases of kidney and ureters (1 source) Urinary tract obstruction; Translations: [Other obstructive and reflux uropathy] Onset: 11-05-19 Episodic Other diseases of kidney and ureters (18 sources) Kidney disease; Translations: [Disorder of kidney and ureter, unspecified] Onset: 06-04-1903-22-2021 Episodic Other male genital disorders (17 sources) Male erectile dysfunction, unspecified; Translations: [Erectile dysfunction] Onset: 04-21-20 Chronic Other nervous system disorders (18 sources) Chronic pain syndrome; Translations: [Chronic pain syndrome] Onset: 06-04-1903-22-2021 Chronic Other nervous system disorders (1 source) Other chronic pain; Translations: [OTHER CHRONIC PAIN] Onset: 02-15-20 Chronic Other nutritional; endocrine; and metabolic disorders (4 sources) Overweight in adulthood with body mass [...] unspecified; Translations: [Peripheral vascular disease, unspecified] Onset: 04-27-20 Resolved : 04-27-2002-16-2023 Chronic Residual codes; unclassified (1 source) Other specified postprocedural states Episodic Residual codes; unclassified (1 source) Family history of ischemic heart disease and other diseases of the circulatory system Episodic Spondylosis; intervertebral disc disorders; other back problems (11 sources) Spondylosis without myelopathy or radiculopathy, lumbar region; Translations: [Other intervertebral disc degeneration, lumbar region] Onset: 01-24-20 22 Chronic Substance-related disorders (20 sources) Smoker; Translations: [Nicotine dependence, unspecified, uncomplicated] Onset: 06-04-1903-22-2021 Chronic Comment on above: Added secondary to d ocumentation in Social History. Unclassified (13 sources) Finding of sensation of bladder 03-25-2021 Unclassified (4 sources) LOW BACK PAIN, UNSPECIFIED; Translations: [LOW BACK PAIN, UNSPECIFIED] Onset: 12-14-19 Unclassified (1 source) CONTACT W/AND (SUSP) EXPOS COVID-19; Translations: [CONTACT W/AND (SUSP) EXPOS COVID-19] Onset: 02-10-20 Unclassified (1 source) CHRN KIDNEY DISEASE STG 3 UNSP; Translations: [CHRN KIDNEY DISEASE STG 3 UNSP] Onset: 02-01-20 22 Unclassified (2 sources) Post-op; Translations: [Post-op] Onset: 01-12-20 24 Unclassified (2 sources) Pre-op Exam; Translations: [Pre-op Exam] Onset: 11-05-19 24 Unclassified (2 sources) Consult; Translations: [Consult] Onset: 09-02-19 24 Unclassified (1 source) Foreign body sensation, unspecified; Translations: [Foreign body sensation, unspecified] Onset: 07-14-19 25 Urinary tract infections (20 sources) Urinary tract infectious disease; Translations: [Urinary tract infection, site not specified] Onset: 10-29-19 Episodic Past or Other Problems Problem Classification Problem Date Documented Date Episodic/Chronic Cancer of prostate (20 sources) History of malignant neoplasm of prostate; Translations: [Personal history of malignant neoplasm of prostate] Onset: 04-27-2023 Episodic Cardiac dysrhythmias (18 sources) Bradycardia; Translations: [Bradycardia, unspecified] Onset: 04-27-2023 06-04-2023 Episodic Diabetes mellitus without complication (13 sources) High glucose level in blood; Translations: [Hyperglycemia, unspecified] Onset: 09-28-2023 09-28-2023 Episodic Mood disorders (13 sources) Mood disorders Onset: 12-08-2023 12-08-2023 Nonspecific chest pain (9 sources) Chest discomfort; Translations: [Other chest pain] Onset: 06-04-2023 06-04-2023 Episodic Other aftercare (2 sources) rn long term care (current) use of anticoagulants; Translations: [shelter (current) use of anticoagulants] Onset: 11-05-2023 Episodic Other connective tissue disease (6 sources) Other muscle spasm; Translations: [OTHER MUSCLE SPASM] Onset: 03-13-2022 Episodic Other connective tissue disease (13 sources) Synovial cyst of lumbar spine; Translations: [Other bursal cyst, other site] Onset: 09-02-2023 09-28-2023 Episodic Other connective tissue disease (2 sources) Other bursal cyst, other site; Translations: [Other bursal cyst, other site] Onset: 11-17-2023 Episodic Other nervous system disorders (2 sources) Other acute postprocedural pain; Translations: [Other acute postprocedural pain] Onset: 11-17-2023 Episodic Residual codes; unclassified (15 sources) Tobacco user; Translations: [Tobacco use] Onset: 06-29-2023 06-29-2023 Episodic Residual codes; unclassified (13 sources) Weight change finding; Translations: [Other general symptoms and signs] Onset: 09-28-2023 09-28-2023 Episodic Residual codes; unclassified (2 sources) Pain, unspecified; Translations: [Pain, unspecified] Onset: 11-17-2023 Episodic Spondylosis; intervertebral disc disorders; other back problems (20 sources) Spinal stenosis, lumbar region without neurogenic claudication; Translations: [Intervertebral disc disorders with radiculopathy, lumbar region] Onset: 01-24-2022 Episodic Unclassified (1 source) LOW BACK PAIN, UNSPECIFIED; Translations: [LOW BACK PAIN, UNSPECIFIED] Onset: 12-12-2021 Unclassified (5 sources) Onset: 06-04-2023 Resolved: 08-30-2024 06-04-2023 Results Test Name Value Interpretation Reference Range Facility [facility] 01-18-2025 OV Office Visit ([facility] ) -- YESENIA BROUSSARD ([id number]) 1945 M Date Time Provider Department 01/18/25 9:45 AM Hyun NAZARIO During your visit today, we recorded the following information about you: Temperature Pulse Respiration Blood pressure 98.6 degrees 92/minute 16/minute 150/75 Weight Height 88.5 kg 1.778 m Kelly Hector MA 01/18/2025 9:49 AM Signed AUA=6 Hyun Nazario MD 01/18/2025 9:49 AM Signed Radiation Oncology - Follow Up Note PATIENT NAME: Yesenia Broussard PATIENT DIAGNOSIS: Prostate adenocarcinoma, initial PSA 9.95, biopsy [place] score 3 + 4 = 7 (grade [...] TIME: 36 days. INTERVAL HISTORY: Doing well. Started taking Azo for increased nocturia, currently without significant with notable improvement. He denies dysuria. Denies fever. Denies abdominal pain. No bowel related issues. PSA HISTORY: PSA (ng/mL) Date Value 01/12/2025 1.56 12/10/2023 0.43 05/11/2023 0.43 11/17/2022 0.50 PSA. (no units) Date Value 05/09/2022 2.810 ALLERGIES No Known Allergies HYDROcodone-acetaminophen (NORCO) 5-325 mg per tablet Take 1 tablet by mouth two times a day as needed for pain. clopidogrel (PLAVIX) 75 mg tablet Take 75 mg by mouth once daily. lisinopril (ZESTRIL) 20 mg tablet Take 1 tablet by mouth once daily. pregabalin (LYRICA) 50 mg capsule Take 1 capsule by mouth two times a day. ergocalciferol, vitamin D2, (VITAMIN D2 ORAL) Take by mouth. aspirin 81 mg cap Take by mouth. pravastatin (PRAVACHOL) 10 mg tablet pravastatin 10 mg tablet amLODIPine (NORVASC) 10 mg tablet amlodipine 10 mg tablet REVIEW OF SYSTEMS: D/N = 5-6/2-4 Hematuria: none Dysuria: none Incontinence: Yes Urgency: mild Catheter use: none Medications to aid urination: y - Total AUA Score: 6 Bowel movement frequency: 1/day Bowel movement quality: normal Blood per rectum: none PHYSICAL EXAM: BP 150/75 (BP Site: Left Arm, BP Position: Sitting, BP Cuff Size: Regular Adult) Pulse 92 Temp 37 ?C (98.6 ?F) (Temporal) Resp 16 Ht 177.8 cm (5' 10 ) Wt 88.5 kg (195 lb 1.7 oz) SpO2 96% BMI 27.99 kg/m? KPS: 90 General Appearance: Alert and oriented. No acute distress. Rectal exam is deferred. ASSESSMENT/PLAN: Prostate adenocarcinoma, initial PSA 9.95, biopsy [place] score 3 + 4 = 7 (grade group 2), clinical stage T1b, N0, M0, stage IIB [T1-T2, N0, M0, PSA <20, GG 2] (AJCC 8th ed.), s/p definitive radiation completed April 2022. 1. Prostate cancer. Clinically doing well. He has had a slight rise in PSA. Unclear significance. Recommend rechecking in 1 to 3 months. Should it continue to climb consider repeat imaging. 2. Spinal stenosis, lumbar spine. Follows with neurosurgery Signed by: Hyun Nazario MD cc: Shaikh Dotty [address] [place] [address] Allergies As of Date: 01/18/2025 (No Known Allergies) Date Reviewed: 01/18/2025 Reviewed by: Kelly Hector MA - Fully Assessed Reason for Visit: Prostate Cancer [590] Cmt: Follow up Primary Visit Diagnosis:Cancer of prostate w/med recur risk (T2b-c or Nicola 7 or PSA 10-20) (HCC) [C61] Order(s):PROSTATE-SPECIFIC ANTIGEN DIAGNOSTIC [SQPSA] Order #: [id number] FUTURE Prescriptions as of 01/18/2025 - HYDROcodone-acetaminophen (NORCO) 5-325 mg per tablet Take 1 tablet by mouth two times a day as needed for pain. - clopidogrel (PLAVIX) 75 mg tablet Take 75 mg by mouth once daily. - lisinopril (ZESTRIL) 20 mg tablet Take 1 tablet by mouth once daily. - pregabalin (LYRICA) 50 mg capsule Take 1 capsule by mouth two times a day. - ergocalciferol, vitamin D2, (VITAMIN D2 ORAL) Take by mouth. - aspirin 81 mg cap Take by mouth. - pravastatin (PRAVACHOL) 10 mg tablet pravastatin 10 mg tablet - amLODIPine (NORVASC) 10 mg tablet amlodipine 10 mg tablet Problem List As Of Date 01/18/2025 Noted Resolved Prostate cancer (HCC) [C61] 11/18/2022 Stage 3 chronic kidney disease (HCC) [N18.30] 11/19/2022 Medications Discontinued During This Encounter Prescriptions - baclofen (LIORESAL) 10 mg tablet (Discontinued) baclofen 10 mg tablet - oxyCODONE IR (ROXICODONE) 5 mg immediate release tablet (Discontinued) TAKE 1 TO 2 TABLETS BY MOUTH EVERY 6 HOURS NEEDED for up to 7 (SEVEN) days Level of Service: OFFICE/OUTPATIENT ESTABLISHED LOW MDM 20 MIN [88969] Additional E/M codes: VISIT CPLX INHERENT EANDM ASSOC WITH MED * (more content not included)... Normal [facility] PSA SERPL-MCNCon 025 [facility] PSA SERPL-MCNC 1.56 ng/mL NINF - 2.60 ng/mL [facility] Comment on above: Total PSA test metho dology used is the Electrochemiluminescence Immunoassay by [employer]. Total PSA values by differing methodologies cannot be interchanged. Specimen Type: BLOOD SPECIMEN Ordering Facility: [facility] Address: [address] [place] [id number] Original [facility]ing [facility]: [facility]con 01-12-2025 Prostate specific Ag [Mass/Vol] 1.56 ng/mL Normal <2.60 [facility] Comment on above: Order Comment: Speci men Type: BLOOD SPECIMEN Ordering Facility: [facility] Address: [address] [place] [address] Result Comment: Azael l PSA test methodology used is the Electrochemiluminescence Immunoassay by [employer]. Total PSA values by differing methodologies cannot be interchanged. Performed By: #### 2 [id number] #### [facility] CLIA [id number] [address] [place] [address] [place] [address] [place] Reminderson 11-08-2024 Reminders Reminders From: Bhavana Banks To: EU - Recalls [place]; Sent: 08/29/2024 16:30:35 EDT Show up: 09/29/2024 16:30:00 EDT Subject: Ct scan/ Cysto Reminder/Recall Patient needs Ct scan and Cysto in October/November 2024 (CHEN) Pt office visit scheduled 04/2025 Normal [facility] Urine Cytology ([facility])on 0 09-02-2024 Microscopic exam Cytology (U) [Interp] Diagnosis Info Invalid Interpretation Code [facility] Comment on above: Result Comment: A:Ur ine,Urine:Voided Interpretation - Adequate cellularity for evaluation. CPT 45680 MicroScopic Description - Adequacy - Gross Description Site ID:A color Yellow fixative Alcohol Specimen designated Urine received in alcohol preservative and labeled with the patient???s name, consists of 70ml clear yellow fluid. Electronically signed by : on: 09/02/2024 13:57:41 Performed By: #### 1 [id number] #### [facility] [address] [place] [address] Ambulatory Visit Summaryon 0 08-29-2024 Ambulatory Visit Summary Ambulatory Visit Summary BOBO YESENIA R :1945 Visit Date:08/29/2024 Ambulatory Visit Instructions Your Diagnosis Gross hematuria Your Care Team Attending Physician - CLAIRE JAMES PA-C Primary Care Physician - AMBROSIO SCALES CNP This Is Your Medications List acetaminophen-hydrocodone ([place] 5/325 Tab) amlodipine (amLODIPine 10 mg Tab) aspirin (aspirin 81 mg oral capsule) clopidogrel (clopidogrel 75 mg Tab) ergocalciferol (Vitamin D2 50,000 intl units (1.25 mg) oral capsule) nitroglycerin (nitroglycerin 0.4 mg sublingual Tab) pravastatin (pravastatin 40 mg Tab) valsartan (valsartan 80 mg Tab) Procedures Performed Procedure on back (10/2023), Mixed beam EBRT (external beam radiation therapy) (04/23/2022), Transurethral resection of prostate (06/06/2021), Cystoscopy (04/23/2021), Transrectal biopsy of prostate using ultrasound guidance (04/23/2021), Cataracts, Colonoscopy, Endarterectomy. Discharge Vitals Temperature (Temporal Artery) 37 ???C Heart Rate (Peripheral) 71 Respiratory Rate 18 Blood Pressure 137/86 Height 178 cm Height 70 in Weight 90 kg Weight 198.416 lb BMI 28.41 What to do next Scheduled Follow-Up Appointments Thursday 10:15 AM EST With: PRESTON MAK, Barbara Warner Where: [facility] [address] You Need to Schedule the Following Appointments Follow Up with [facility] [place] When: Comments: For procedure as scheduled. Where: Medications What How Much When Instructions Unchanged acetaminophen-hydrocodone ([place] 5/ 325 Tab) By Mouth Every 6 hours Unchanged amlodipine (amLODIPine 10 mg Tab) 1 Tablets Unchanged aspirin (aspirin 81 mg oral capsule) By Mouth Every 4 hours Unchanged clopidogrel (clopidogrel 75 mg Tab) 1 Tablets Unchanged ergocalciferol (Vitamin D2 50,000 intl units (1.25 mg) oral capsule) By Mouth Every week Unchanged nitroglycerin (nitroglycerin 0.4 mg sublingual Tab) Unchanged pravastatin (pravastatin 40 mg Tab) Unchanged valsartan (valsartan 80 mg Tab) Allergies ezetimibe Problems Ongoing - Any problem that you are currently receiving treatment for. Anxiety BPH with urinary obstruction Chronic pain disorder Chronic prostatitis Erectile dysfunction Feeling of incomplete bladder emptying Gross hematuria Heart disease History of prostate cancer History of UTI HLD (hyperlipidemia) Hypertension Kidney disease Nocturia Prostate cancer Prostate nodule Prostatitis Recurrent UTI Smoker Umbilical hernia UTI (urinary tract infection) UTI symptoms Patient Survey You may receive a survey via text or e-mail asking about your office visit. Please share your experience with us by completing your survey. We appreciate your feedback and thank you for choosing us for your care. Education Materials Hematuria, Adult Hematuria is blood in the urine. Blood may be visible in the urine, or it may be identified with a test. This condition can be caused by infections of the bladder, urethra, kidney, or prostate. Other possible causes include: ??? Kidney stones. ??? Cancer of the urinary tract. ??? Too much calcium in the urine. ??? Conditions that are passed from parent to child (inherited conditions). ??? Exercise that requires a lot of energy. Infections can usually be treated with medicine, and a kidney stone usually will pass through your urine. If neither of these is the cause of your hematuria, more tests may be needed to identify the cause of your symptoms. It is very important to tell your health care provider about any blood in your urine, even if it is painless or the blood stops without treatment. Blood in the urine, when it happens and then stops and then happens again, can be a symptom of a very serious condition, including cancer. There is no pain in the initial stages of many urinary cancers. Follow these instructions at home: Medicines ??? Take uovx-hbr-oohghlf and prescription medicines only as told by your health care provider. ??? If you were prescribed an antibiotic medicine, take it as told by your health care provider. Do not stop taking the antibiotic even if you start to feel better. Eating and drinking ??? Drink enough fluid to keep your urine pale yellow. It is recommended that you drink 3???4 quarts (2.8???3.8 L) a day. If you have been diagnosed with an infection, drinking cranberry juice in addition to large amounts of water is recommended. ??? Avoid caffeine, tea, and carbonated beverages. These tend to irritate the bladder. ??? Avoid alcohol because it may irritate the prostate (in males). General instructions ??? If you have been diagnosed with a kidney stone, follow your health care provider's instructions about straining your urine to (more content not included)... Normal [facility] Urine Cytology ([facility])on 0 08-29-2024 Method of Extraction Voided Normal [facility] Comment on above: Performed By: #### 1 [id number] #### [facility] [address] [place] [address] Number of Jars 1 Invalid Interpretation Code [facility] Comment on above: Performed By: #### 1 [id number] #### [facility] [address] [place] [address] Specimen Urine Normal [facility] Comment on above: Performed By: #### 1 [id number] #### [facility] [address] [place] [address] Type of Service Technical Only Normal [facility] Comment on above: Performed By: #### 1 [id number] #### [facility] [address] [place] [address] Urology Office/Clinic Noteon 08-29-2024 Urology Office/Clinic Note Urology Office/Clinic Note Chief Complaint gross hematuria HPI Staff Pt states that he has been much better since taking the Keflex 500 BID for 7 days after last OV. Dx: Gross hematuria Positive culture on 08/08/24 for 10,000 cfu/ml Staphylococcus species Pt denies any more gross hematuria since the antibiotics. He has no urinary complaints at this time. Review of Systems PHQ Score Initial Depression Screen Score: 0 SCORE no fever, chills, malaise, myalgia. no abdominal pain, nausea, vomiting. Physical Exam Vitals & Measurements T: 37 ???C(Temporal Artery) HR: 71(Peripheral) RR: 18 BP: 137/86 HT: 70 in HT: 178 cm WT: 198.416 lb WT: 90 kg BMI: 28.41 General: nontoxic, NAD Assessment/Plan hx of prostate cancer (EBRT 2021), BPH with urinary obstruction (TURP 06/06/21) 1. Gross hematuria (R31.0: Gross hematuria) 08/08/24: He says about 2 weeks ago, he saw small amounts of blood on and off, but it was not constantly. He says he has been having a light burning sensation x2 weeks. This morning, pt felt as if he could not urinate, like he had a blockage . When he tried to push urine out, he passed something , thinks it may have been a blood clot. He then began urinating bright red blood. Sample IO is strawberry red. Able to see through it. Small clots noted. PVR - 149mL IPSS 14 QOL 6. Likely secondary to UTI. Will send urine for C&S. Start empiric Keflex x 7d. CKD stage 3 so will avoid Cipro/Bactrim. If Cx neg, will need hematuria eval. TODAY: Cx did not show infection to explain the gross hematuria. Therefore we will need to complete hematuria eval. Discussed options. The patient is aware that a distinct etiology of the hematuria may not be clear upon conclusion of the workup. Will initiate hematuria workup to include upper urinary tract imaging (CTU if renal function allows, otherwise CT w/o con), as well as evaluation of the urinary cells with urine cytology and possible a FISH test. A cystoscopy will be scheduled to rule out lower urinary tract pathology. The rationale for this workup has been discussed, and all questions have been answered. The risks and benefits for cystoscopy have been discussed. The risks include bleeding, infection, and irritation of the bladder and urinary channel, among others. The patient, after being informed of procedural details and after questions have been answered, wishes to proceed. Full informed consent has been obtained. Will order Local anesthesia. *Pt willing to proceed but would like to hold off x 3 mos. I explained if cytology comes back abnl or he develops recurrent hematuria then would strongly recommend sooner. Ordered: E&M of Est. Patient Moderate 30-39 Min 19172 Urine Cytology ([facility]) Urnls Dip Stick Auto w/o Microscopy POC [id number] Follow-up With When Contact Information [facility] Additional Instructions: For procedure as scheduled. Patient Education Hematuria, Adult Problem List/Past Medical History Ongoing Anxiety BPH with urinary obstruction Chronic pain disorder Chronic prostatitis Erectile dysfunction Feeling of incomplete bladder emptying Gross hematuria Heart disease History of prostate cancer History of UTI HLD (hyperlipidemia) Hypertension Kidney disease Nocturia Prostate cancer Prostate nodule Prostatitis Recurrent UTI Smoker Umbilical hernia UTI (urinary tract infection) UTI symptoms Historical No qualifying data Procedure/Surgical History Procedure on back (10/2023), Mixed beam EBRT (external beam radiation therapy) (04/23/2022), Transurethral resection of prostate (06/06/2021), Cystoscopy (04/23/2021), Transrectal biopsy of prostate using ultrasound guidance (04/23/2021), Cataracts, Colonoscopy, Endarterectomy. Medications amLODIPine 10 mg Tab, 10 mg= 1 tab(s) aspirin 81 mg oral capsule, Oral, q4hr clopidogrel 75 mg Tab, 75 mg= 1 tab(s) nitroglycerin 0.4 mg sublingual Tab [place] 5/325 Tab, Oral, q6hr pravastatin 40 mg Tab valsartan 80 mg Tab Vitamin D2 50,000 intl units (1.25 mg) oral capsule, Oral, qWeek Allergies ezetimibe Social History Alcohol Past. Beer. 1-2 times per week., 04/15/2024 Substance Abuse Never., 04/15/2024 Tobacco 10 or more cigarettes (1/2 pack or more)/day in last 30 days Tobacco Use:. Never Smokeless Tobacco Use:. Cigarettes, Ready to change: No. Yes, 08/29/2024 Family History Alcoholism: Mother. Heart disease: Mother. Immunizations Vaccine Date Status Comments influenza virus vaccine, inactivated - Not Given Patient Refuses influenza virus vaccine, inactivated - Not Given Temporary contraindication - reschedule SARS-CoV-2 (COVID-19) mRNA-1273 vaccine 07/26/2020 Recorded SARS-CoV-2 (COVID-19) mRNA-1273 vaccine 06/28/2020 Recorded SARS-CoV-2 (COVID-19) mRNA-1273 vaccine 06/25/2020 Recorded Lab Results Ambulatory Point of Care Results Bilirubin Urine Dipstick: Negative (08/29/24 11:52:00) Blood U (more content not included)... Normal [facility] Comment on above: Result Comment: Elec tronically Signed By: CLAIRE JAMES PA-C\.da\Date and Time Signed: 08/29/24 14:09 EDT C Urineon 08-25-2024 Bacteria identified Cx Nom (U) Microbiology PROCEDURE: Urine Culture [R1] SOURCE: U CleanCatch BODY SITE: COLLECTED DATE/TIME: 08/22/2024 16:34 EDT RECEIVED DATE/TIME: 08/23/2024 17:54 EDT START DATE/TIME: 08/23/2024 17:54 EDT FREE TEXT SOURCE: Stewart CLINICAL APPLICATION SPECIALIST, CONTRACT IMPLEMENTATION ANALYST-C, Orfabienne CLINICAL APPLICATION SPECIALIST, CONTRACT IMPLEMENTATION ANALYST-C, Cherie X Cherie X FINAL REPORTS Final Report [] Verified Date/Time: 08/25/2024 07:02 EDT 100 cfu/ml Mixed skin contaminants Performing Locations R1: This test was performed at: [facility], [address] [place] [address], [id number] , , [facility] Comment on above: Performed By: #### 2 [id number] #### [facility] [address] [place] [id number] Ambulatory Visit Summaryon 0 08-22-2024 Ambulatory Visit Summary Ambulatory Visit Summary BOBO YESENIA R :1945 Visit Date:08/22/2024 Ambulatory Visit Instructions Your Care Team Attending Physician - Barbara JOHNSTON MD Primary Care Physician - AMBROSIO SCALES CNP This Is Your Medications List acetaminophen-hydrocodone ([place] 5/325 Tab) amlodipine (amLODIPine 10 mg Tab) aspirin (aspirin 81 mg oral capsule) clopidogrel (clopidogrel 75 mg Tab) ergocalciferol (Vitamin D2 50,000 intl units (1.25 mg) oral capsule) nitroglycerin (nitroglycerin 0.4 mg sublingual Tab) pravastatin (pravastatin 40 mg Tab) valsartan (valsartan 80 mg Tab) Procedures Performed Procedure on back (10/2023), Mixed beam EBRT (external beam radiation therapy) (04/23/2022), Transurethral resection of prostate (06/06/2021), Cystoscopy (04/23/2021), Transrectal biopsy of prostate using ultrasound guidance (04/23/2021), Cataracts, Colonoscopy, Endarterectomy. What to do next Scheduled Follow-Up Appointments Thursday 10:15 AM EST With: Barbara JOHNSTON MD Where: [facility] [address] [place] [address]- Medications What How Much When Instructions Unchanged acetaminophen-hydrocodone ([place] 5/ 325 Tab) By Mouth Every 6 hours Unchanged amlodipine (amLODIPine 10 mg Tab) 1 Tablets Unchanged aspirin (aspirin 81 mg oral capsule) By Mouth Every 4 hours Unchanged clopidogrel (clopidogrel 75 mg Tab) 1 Tablets Unchanged ergocalciferol (Vitamin D2 50,000 intl units (1.25 mg) oral capsule) By Mouth Every week Unchanged nitroglycerin (nitroglycerin 0.4 mg sublingual Tab) Unchanged pravastatin (pravastatin 40 mg Tab) Unchanged valsartan (valsartan 80 mg Tab) Allergies ezetimibe Problems Ongoing - Any problem that you are currently receiving treatment for. Anxiety BPH with urinary obstruction Chronic pain disorder Chronic prostatitis Erectile dysfunction Feeling of incomplete bladder emptying Gross hematuria Heart disease History of prostate cancer History of UTI HLD (hyperlipidemia) Hypertension Kidney disease Nocturia Prostate cancer Prostate nodule Prostatitis Recurrent UTI Smoker Umbilical hernia UTI (urinary tract infection) UTI symptoms Patient Survey You may receive a survey via text or e-mail asking about your office visit. Please share your experience with us by completing your survey. We appreciate your feedback and thank you for choosing us for your care. Normal [facility] Follow-Upon 08-18-2024 Follow-Up [id number] Dianne Broussard 1945 M Date Provider Department Center 08/18/2024 JOELLEN STANTON [facility] Second Fl Family History Problem Relation Age of Onset Hypertension Mother Diabetes Father Family Status - Relation Status Age at Mother Father Level of Service:[id number] ID OFFICE/OUTPATIENT ESTABLISHED LOW MDM 20 MIN Reason for Visit and Comments: Follow-up [[id number]] Normal [facility] C Urineon 08-12-2024 Bacteria identified Cx Nom (U) Microbiology PROCEDURE: Urine Culture [R1] SOURCE: U Random BODY SITE: COLLECTED DATE/TIME: 08/08/2024 13:00 EDT RECEIVED DATE/TIME: 08/08/2024 17:47 EDT START DATE/TIME: 08/08/2024 17:47 EDT FREE TEXT SOURCE: CLAIRE JAMES PA-C, PA-C, JENNIFER E FINAL REPORTS Final Report [] Verified Date/Time: 08/12/2024 11:28 EDT 10,000 cfu/ml Staphylococcus aureus SUSCEPTIBILITY RESULTS _ LEGEND: S=Susceptible, N/R=Not Reported, Blank=Data not available, or drug not advisable or tested, I=Intermediate, ESBL=Extended spectrum beta-lactamase, R=Resistant, TFG=Thymidine-dependent strain, CATRINA=Beta-lactamase positive, ROSLYN=mcg/m;(mg/L), S*=Predicted susceptible interp, R*=Predicted resistant interp SA Antibiotic ROSLYN Dilutn ROSLYN Interp Amoxicillin/ <=4/2 S Clavulanate Ampicillin/ <=8/4 S Sulbactam Cefazolin <=8 S Ceftaroline <=0.5 S Ciprofloxacin 2 I Daptomycin <=1 S Gentamicin <=4 S Levofloxacin <=1 S Linezolid <=2 S Nitrofurantoin <=32 S Oxacillin 1 S Penicillin <=0.03 S Rifampin <=1 S Tetracycline <=4 S Trimethoprim/ <=0.5/9.5 S Sulfa Vancomycin 1 S Performing Locations R1: This test was performed at: [facility], [address] [place] [address], [id number]- , [place], [facility] Comment on above: Performed By: #### 2 [id number] #### [facility] [address] [place] [address], [place] [address] Albumin [Mass/volume] in Ser um or Plasma by Bromocresol green (BCG) dye binding methoOrdered By: Theo Thakkar on 08-10-2024 Albumin BCG dye [Mass/Vol] Albumin [Mass/volume] in Serum or Plasma by Bromocresol green (BCG) dye binding metho 3.5-5.7 [facility] Appearance of UrineOrdered B y: Theo Thakkar on 08-10-2024 Appearance (U) Urine appearance Clear [facility] Bacteria [Presence] in Urine by AutomatedOrdered By: Theo Thakkar on 08-10-2024 Bacteria Auto Ql (U) Bacteria [Presence] in Urine by Automated None Seen [facility] Bilirubin Test strip Ql (U)O rdered By: Theo Thakkar on 08-10-2024 Bilirubin Ql (U) Bilirubin.total [Pre sence] in Urine by Test strip Negative [facility] Calcium [Mass/volume] in Ser um or PlasmaOrdered By: Theo Thakkar on 08-10-2024 Calcium [Mass/Vol] Calcium [Mass/volume ] in Serum or Plasma 8.6-10.3 [facility] Carbon dioxide, total [Moles /volume] in Serum or PlasmaOrdered By: Theo Thakkar on 08-10-2024 CO2 [Moles/Vol] Carbon dioxide, tota l [Moles/volume] in Serum or Plasma 21.0-31.0 [facility] Chloride [Moles/volume] in S jaime or PlasmaOrdered By: Theo Thakkar on 08-10-2024 Chloride [Moles/Vol] Chloride [Moles/vol ume] in Serum or Plasma 98-107 [facility] Color Auto (U)Ordered By: Ab bola Thakkar on 08-10-2024 Color (U) Color of Urine by Auto Yellow [facility] Creatinine [Mass/volume] in Serum or PlasmaOrdered By: Theo Thakkar on 08-10-2024 Creatinine [Mass/Vol] Creatinine [Mass/v olume] in Serum or Plasma High 0.70-1.30 [facility] Creatinine [Mass/volume] in UrineOrdered By: Theo Thakkar on 08-10-2024 Creatinine (U) [Mass/Vol] Creatinine [Mass/volume] in Urine [facility] Comment on above: No reference range e stablished Dipstick and Microscopicon 0 08-10-2024 Appearance (U) Clear Normal Clear [facility] Comment on above: Order Comment: Name Collection Type:: Clean-Voided Midstream Performed By: #### P TH, RENAL, MG, [id number], URIC, CBCNO, JAVIER, FE and TIBC #### [facility] [address] Bacteria,Urine None Seen Normal None Seen [facility] Comment on above: Order Comment: Name Collection Type:: Clean-Voided Midstream Performed By: #### P TH, RENAL, MG, [id number], URIC, CBCNO, JAVIER, FE and TIBC #### [address] Bilirubin,Urine Negative Normal Negative [facility] Comment on above: Order Comment: Name Collection Type:: Clean-Voided Midstream Performed By: #### P TH, RENAL, MG, [id number], URIC, CBCNO, JAVIER, FE and TIBC #### [facility] [address] [place] [address] Color (U) Light-Yellow Normal Yellow [facility] Comment on above: Order Comment: Name Collection Type:: Clean-Voided Midstream Performed By: #### P TH, RENAL, MG, [id number], URIC, CBCNO, JAVIER, FE and TIBC #### [address] Glucose Ql (U) Normal Normal Normal [facility] Comment on above: Order Comment: Name Collection Type:: Clean-Voided Midstream Performed By: #### P TH, RENAL, MG, [id number], URIC, CBCNO, JAVIER, FE and TIBC #### [address] Hyaline Casts,Urine 0-8 Normal 0-8 [facility] Comment on above: Order Comment: Name Collection Type:: Clean-Voided Midstream Performed By: #### P TH, RENAL, MG, [id number], URIC, CBCNO, JAVIER, FE and TIBC #### [address] Ketones Ql (U) Negative Normal Negative [facility] Comment on above: Order Comment: Name Collection Type:: Clean-Voided Midstream Performed By: #### P TH, RENAL, MG, [id number], URIC, CBCNO, JAVIER, FE and TIBC #### [address] Leukocyte esterase Test strip Ql (U) 2+ High Negative [facility] Comment on above: Order Comment: Name Collection Type:: Clean-Voided Midstream Performed By: #### P TH, RENAL, MG, [id number], URIC, CBCNO, JAVIER, FE and TIBC #### [address] Mucus,Urine Rare Normal [facility] Comment on above: Order Comment: Name Collection Type:: Clean-Voided Midstream Result Comment: PERF ORMED BY: [place] [address] PATHOLOGIST PROFILER OPERATOR ROS GUNDERSON M.D. Performed By: #### P TH, RENAL, MG, [id number], URIC, CBCNO, JAVIER, FE and TIBC #### [address] Nitrite,Urine Negative Normal Negative [facility] Comment on above: Order Comment: Name Collection Type:: Clean-Voided Midstream Performed By: #### P TH, RENAL, MG, [id number], URIC, CBCNO, JAVIER, FE and TIBC #### [address] Occult Blood,Urine 1+ High Negative [facility] Comment on above: Order Comment: Name Collection Type:: Clean-Voided Midstream Performed By: #### P TH, RENAL, MG, [id number], URIC, CBCNO, JAVIER, FE and TIBC #### [facility] [address] pH (U) 6.0 [pH] Normal 5.0-9.0 [facility] Comment on above: Order Comment: Name Collection Type:: Clean-Voided Midstream Performed By: #### P TH, RENAL, MG, [id number], URIC, CBCNO, JAVIER, FE and TIBC #### [address] Protein (U) [Mass/Vol] 50 mg/dL High Negative [facility] Comment on above: Order Comment: Name Collection Type:: Clean-Voided Midstream Performed By: #### P TH, RENAL, MG, [id number], URIC, CBCNO, JAVIER, FE and TIBC #### [address] RBC,Urine 5-9 High 0-4 [facility] Comment on above: Order Comment: Name Collection Type:: Clean-Voided Midstream Performed By: #### P TH, RENAL, MG, [id number], URIC, CBCNO, JAVIER, FE and TIBC #### [address] Specificy [place],Urine 1.016 Normal 1.001-1.03 0 [facility] Comment on above: Order Comment: Name Collection Type:: Clean-Voided Midstream Performed By: #### P TH, RENAL, MG, [id number], URIC, CBCNO, JAVIER, FE and TIBC #### [address] Urobilinogen,Urine Normal Normal Normal [facility] Comment on above: Order Comment: Name Collection Type:: Clean-Voided Midstream Performed By: #### P TH, RENAL, MG, [id number], URIC, CBCNO, JAVIER, FE and TIBC #### [address] WBC CL[place], Urine Occasional High None Seen [facility] Comment on above: Order Comment: Name Collection Type:: Clean-Voided Midstream Performed By: #### P TH, RENAL, MG, [id number], URIC, CBCNO, JAVIER, FE and TIBC #### [facility] [address] WBC,Urine 20-49 High 0-4 [facility] Comment on above: Order Comment: Name Collection Type:: Clean-Voided Midstream Performed By: #### P TH, RENAL, MG, [id number], URIC, CBCNO, JAVIER, FE and TIBC #### [facility] [address] Epithelial cells.squamous [# /area] in Urine sediment by Automated countOrdered By: Theo Vivian on 08-10-2024 Epithelial cells.squamous Auto (Urine sed) [#/Area] Epithelial cells.squamous [#/area] in Urine sediment by Automated count [facility] Erythrocyte distribution wid th Auto (RBC) [Ratio]Ordered By: Theo Vivian on 08-10-2024 Erythrocyte distribution width (RBC) [Ratio] Erythrocyte distribution width [Ratio] by Automated count High 12.0-14.8 [facility] Erythrocytes [#/area] in Uri ne sediment by Automated countOrdered By: Theo Vivian on 08-10-2024 RBC Auto (Urine sed) [#/Area] Erythrocytes [#/area] in Urine sediment by Automated count High 0-4 [facility] Ferritinon 08-10-2024 Ferritin [Mass/Vol] 14.0 ng/mL Low 23.9-336.2 [facility] Comment on above: Performed By: #### P TH, RENAL, MG, [id number], URIC, CBCNO, JAVIER, FE and TIBC #### [facility] [address] [place] [address] Ferritin [Mass/volume] in Se rum or PlasmaOrdered By: Theo Vivian on 08-10-2024 Ferritin [Mass/Vol] Ferritin [Mass/volum e] in Serum or Plasma Low 23.9-336.2 [facility] Glucose [Mass/volume] in Ser um or PlasmaOrdered By: Theo Vivian on 08-10-2024 Glucose [Mass/Vol] Glucose [Mass/volume ] in Serum or Plasma High 70-100 [facility] Comment on above: ADA recommended refe rence rangeRandom Glucose Reference Range is dependent on time and content of last meal. Glucose of more than 200 mg/dL in a nonstressed, ambulatory subject supports the diagnosis of Diabetes Mellitus. Glucose [Mass/volume] in Uri ne by Test stripOrdered By: Theo Thakkar on 08-10-2024 Glucose Test strip (U) [Mass/Vol] Glucose [Mass/volume] in Urine by Test strip Normal [facility] Hematocrit Auto (Bld) [Volum e fraction]Ordered By: Theo Thakkar on 08-10-2024 Hematocrit (Bld) [Volume fraction] Hematocrit [Volume Fraction] of Blood by Automated count 38.8-50.0 [facility] Hemoglobin Test strip Ql (U) Ordered By: Theo Thakkar on 08-10-2024 Hemoglobin Ql (U) Hemoglobin [Presence ] in Urine by Test strip High Negative [facility] Hemoglobin [Mass/volume] in BloodOrdered By: Theo Thakkar on 08-10-2024 Hemoglobin (Bld) [Mass/Vol] Hemoglobin [Mass/volume] in Blood 13.0-17.0 [facility] Hemogram CBC Without Diffon 08-10-2024 Erythrocyte distribution width (RBC) [Ratio] 15.8 % High 12.0-14.8 [facility] Comment on above: Performed By: #### P TH, RENAL, MG, [id number], URIC, CBCNO, JAVIER, FE and TIBC #### [facility] [address] Hematocrit (Bld) [Volume fraction] 39.2 % Normal 38.8-50.0 [facility] Comment on above: Performed By: #### P TH, RENAL, MG, [id number], URIC, CBCNO, JAVIER, FE and TIBC #### [facility] [address] Hemoglobin (Bld) [Mass/Vol] 13.0 g/dL Normal 13.0-17.0 [facility] Comment on above: Performed By: #### P TH, RENAL, MG, [id number], URIC, CBCNO, JAVIER, FE and TIBC #### [address] MCH (RBC) [Entitic mass] 29.9 pg Normal 27.5-35.2 [facility] Comment on above: Performed By: #### P TH, RENAL, MG, [id number], URIC, CBCNO, JAVIER, FE and TIBC #### [address] MCV (RBC) [Entitic vol] 90.3 fL Normal 83.5-101 [facility] Comment on above: Performed By: #### P TH, RENAL, MG, [id number], URIC, CBCNO, JAVIER, FE and TIBC #### [address] Mean Corpuscular HGB Conc 33.1 g/dL Normal 32.5-35.6 [facility] Comment on above: Performed By: #### P TH, RENAL, MG, [id number], URIC, CBCNO, JAVIER, FE and TIBC #### [address] Platelet mean volume (Bld) [Entitic vol] 8.9 fL Normal 6.6-10.1 [facility] Comment on above: Result Comment: PERF ORMED BY: [place] [address] PATHOLOGIST PROFILER OPERATOR ROS GUNDERSON M.D. Performed By: #### P TH, RENAL, MG, [id number], URIC, CBCNO, JAVIER, FE and TIBC #### [address] Platelets (Bld) [#/Vol] 293 10*3/uL Normal 150-450 [facility] Comment on above: Performed By: #### P TH, RENAL, MG, [id number], URIC, CBCNO, JAVIER, FE and TIBC #### [address] RBC (Bld) [#/Vol] 4.34 10*6/uL Normal 3.90-5.60 [facility] Comment on above: Performed By: #### P TH, RENAL, MG, [id number], URIC, CBCNO, JAVIER, FE and TIBC #### [facility] [address] WBC (Bld) [#/Vol] 6.9 10*3/uL Normal 4.1-10.5 [facility] Comment on above: Performed By: #### P TH, RENAL, MG, [id number], URIC, CBCNO, JAVIER, FE and TIBC #### [facility] [address] Hyaline casts [#/area] in Ur ine sediment by Automated countOrdered By: Theo Thakkar on 08-10-2024 Hyaline casts Auto (Urine sed) [#/Area] Hyaline casts [#/area] in Urine sediment by Automated count 0-8 [facility] Iron [Mass/volume] in Serum or PlasmaOrdered By: Theo Thakkar on 08-10-2024 Iron [Mass/Vol] Iron [Mass/volume] i n Serum or Plasma 50-212 [facility] Iron and TIBC Profileon 07-30 % Iron Saturation 19.9 % Low 20-50 [facility] Comment on above: Performed By: #### P TH, RENAL, MG, [id number], URIC, CBCNO, JAVIER, FE and TIBC #### [facility] [address] Iron [Mass/Vol] 87 ug/dL Normal 50-212 [facility] Comment on above: Performed By: #### P TH, RENAL, MG, [id number], URIC, CBCNO, JAVIER, FE and TIBC #### [facility] [address] Total Iron Binding Capacity 438 ug/dL Normal 255-450 [facility] Comment on above: Performed By: #### P TH, RENAL, MG, [id number], URIC, CBCNO, JAVIER, FE and TIBC #### [address] Transferrin [Mass/Vol] 313 mg/dL Normal 203-362 [facility] Comment on above: Performed By: #### P TH, RENAL, MG, [id number], URIC, CBCNO, JAVIER, FE and TIBC #### [facility] [address] Ketones Test strip Ql (U)Ord ered By: Theo Thakkar on 08-10-2024 Ketones Ql (U) Ketones [Presence] i n Urine by Test strip Negative [facility] Leukocyte clumps [Presence] in Urine by AutomatedOrdered By: Theo Thakkar on 08-10-2024 Leukocyte clumps Auto Ql (U) Leukocyte clumps [Presence] in Urine by Automated High None Seen [facility] Leukocyte esterase [Presence ] in Urine by Test stripOrdered By: Theo Thakkar on 08-10-2024 Leukocyte esterase Test strip Ql (U) Leukocyte esterase [Presence] in Urine by Test strip High Negative [facility] Leukocytes [#/area] in Urine sediment by Automated countOrdered By: Theo Thakkar on 08-10-2024 WBC Auto (Urine sed) [#/Area] Leukocytes [#/area] in Urine sediment by Automated count High 0-4 [facility] Leukocytes [#/volume] correc diana for nucleated erythrocytes in Blood by Automated counOrdered By: Theo Thakkar on 08-10-2024 WBC corrected for nucl RBC Auto (Bld) [#/Vol] Leukocytes [#/volume] corrected for nucleated erythrocytes in Blood by Automated coun 4.1-10.5 [facility] MCH Auto (RBC) [Entitic mass ]Ordered By: Theo Thakkar on 08-10-2024 MCH (RBC) [Entitic mass] MCH [Entitic mass] by Automated count 27.5-35.2 [facility] MCHC Auto (RBC) [Mass/Vol]Or dered By: Theo Thakkar on 08-10-2024 MCHC (RBC) [Mass/Vol] MCHC [Mass/volume] by Automated count 32.5-35.6 [facility] MCV Auto (RBC) [Entitic vol] Ordered By: Theo Thakkar on 08-10-2024 MCV (RBC) [Entitic vol] MCV [Entitic volume] by Automated count 83.5-101 [facility] Magnesiumon 08-10-2024 Magnesium [Mass/Vol] 2.1 mg/dL Normal 1.9-2.7 [facility] Comment on above: Performed By: #### P TH, RENAL, MG, [id number], URIC, CBCNO, JAVIER, FE and TIBC #### [facility] [address] Magnesium [Mass/volume] in S jaime or PlasmaOrdered By: Theo Thakkar on 08-10-2024 Magnesium [Mass/Vol] Magnesium [Mass/vol ume] in Serum or Plasma 1.9-2.7 [facility] Mucus [Presence] in Urine by AutomatedOrdered By: Theo Thakkar on 08-10-2024 Mucus Auto Ql (U) Mucus [Presence] in Urine by Automated [facility] Nitrite Test strip Ql (U)Ord ered By: Theo Thakkar on 08-10-2024 Nitrite Ql (U) Nitrite [Presence] i n Urine by Test strip Negative [facility] No Panel InformationOrdered By: Theo Thakkar on 08-10-2024 Estimated GFR (CKD-EPI) 39.659 mL/Min [facility] Creatinine Clearance (Chem N/A [facility] Parathyrin.intact [Mass/volu me] in Serum or PlasmaOrdered By: Theo Thakkar on 08-10-2024 Parathyrin.intact [Mass/Vol] Parathyrin.intact [Mass/volume] in Serum or Plasma High [facility] Parathyroid Hormone Int[place]on 08-10-2024 Parathyroid Hormone Intact 96.1 pg/mL High [facility] Comment on above: Result Comment: PERF ORMED BY: [facility] [address] [facility] [place] [id number] PATHOLOGIST PROFILER OPERATOR ROS GUNDERSON M.D. Performed By: #### P TH, RENAL, MG, [id number], URIC, CBCNO, JAVIER, FE and TIBC #### [facility] [address] [place] [id number] [facility] Phosphate [Mass/volume] in S jaime or PlasmaOrdered By: Theo Thakkar on 08-10-2024 Phosphate [Mass/Vol] Phosphate [Mass/vol ume] in Serum or Plasma 2.5-4.5 [facility] Platelet mean volume Auto (B ld) [Entitic vol]Ordered By: Theo Thakkar on 08-10-2024 Platelet mean volume (Bld) [Entitic vol] Platelet mean volume [Entitic volume] in Blood by Automated count 6.6-10.1 [facility] Platelets Auto (Bld) [#/Vol] Ordered By: Theo Thakkar on 08-10-2024 Platelets (Bld) [#/Vol] Platelets [#/volume] in Blood by Automated count 150-450 [facility] Potassium [Moles/volume] in Serum or PlasmaOrdered By: Theo Thakkar on 08-10-2024 Potassium [Moles/Vol] Potassium [Moles/v olume] in Serum or Plasma 3.5-5.1 [facility] Protein Creat Ratio Ur Rando mon 08-10-2024 Creatinine, Urine (Random) 114.00 mg/dL Normal [facility] Comment on above: Result Comment: No r eference range established Performed By: #### P TH, RENAL, MG, [id number], URIC, CBCNO, JAVIER, FE and TIBC #### [facility] [address] [place] [id number] [facility] Protein (U) [Mass/Vol] 81 mg/dL High 0-9 [facility] Comment on above: Performed By: #### P TH, RENAL, MG, [id number], URIC, CBCNO, JAVIER, FE and TIBC #### [facility] [address] [place] [id number] [facility] Urine Protein/Creatinine Ratio 711 mg/g{Cre} High 0-200 [facility] Comment on above: Result Comment: PERF ORMED BY: [place] [address] PATHOLOGIST PROFILER OPERATOR ROS GUNDERSON M.D. Performed By: #### P TH, RENAL, MG, [id number], URIC, CBCNO, JAVIER, FE and TIBC #### [facility] [address] Protein Test strip (U) [Mass /Vol]Ordered By: Theo Thakkar on 08-10-2024 Protein (U) [Mass/Vol] Protein [Mass/vol ume] in Urine by Test strip High Negative [facility] Protein [Mass/volume] in Uri neOrdered By: Theo Thakkar on 08-10-2024 Protein (U) [Mass/Vol] Protein [Mass/vol ume] in Urine High 0-9 [facility] RBC Auto (Bld) [#/Vol]Ordere d By: Theo Thakkar on 08-10-2024 RBC (Bld) [#/Vol] Erythrocytes [#/volu me] in Blood by Automated count 3.90-5.60 [facility] Renal Function Panelon 08-10 Albumin [Mass/Vol] 4.3 g/dL Normal 3.5-5.7 [facility] Comment on above: Performed By: #### P TH, RENAL, MG, [id number], URIC, CBCNO, JAVIER, FE and TIBC #### [facility] [address] Anion gap [Moles/Vol] 9.2 mmol/L Normal 6.0-15.0 [facility] Comment on above: Performed By: #### P TH, RENAL, MG, [id number], URIC, CBCNO, JAVIER, FE and TIBC #### [facility] [address] Calcium [Mass/Vol] 9.2 mg/dL Normal 8.6-10.3 [facility] Comment on above: Performed By: #### P TH, RENAL, MG, [id number], URIC, CBCNO, JAVIER, FE and TIBC #### [facility] [address] Chloride [Moles/Vol] 106 mmol/L Normal 98-107 [facility] Comment on above: Performed By: #### P TH, RENAL, MG, [id number], URIC, CBCNO, JAVIER, FE and TIBC #### [address] CO2 [Moles/Vol] 27.7 mmol/L Normal 21.0-31.0 [facility] Comment on above: Performed By: #### P TH, RENAL, MG, [id number], URIC, CBCNO, JAVIER, FE and TIBC #### [address] Creatinine [Mass/Vol] 1.73 mg/dL High 0.70-1.30 [facility] Comment on above: Performed By: #### P TH, RENAL, MG, [id number], URIC, CBCNO, JAVIER, FE and TIBC #### [address] Estimated GFR 39.659 mL/Min Normal [facility] Comment on above: Performed By: #### P TH, RENAL, MG, [id number], URIC, CBCNO, JAVIER, FE and TIBC #### [address] Glucose [Mass/Vol] 119 mg/dL High 70-100 [facility] Comment on above: Result Comment: [facility] Glucose Reference Range is dependent on time and content of last meal. Glucose of more than 200 mg/dL in a nonstressed, ambulatory subject supports the diagnosis of Diabetes Mellitus. ADA recommended reference range Performed By: #### P TH, RENAL, MG, [id number], URIC, CBCNO, JAVIER, FE and TIBC #### [address] Phosphate [Mass/Vol] 3.4 mg/dL Normal 2.5-4.5 [facility] Comment on above: Performed By: #### P TH, RENAL, MG, [id number], URIC, CBCNO, JAVIER, FE and TIBC #### [address] Potassium [Moles/Vol] 4.9 mmol/L Normal 3.5-5.1 [facility] Comment on above: Performed By: #### P TH, RENAL, MG, [id number], URIC, CBCNO, JAVIER, FE and TIBC #### [facility] [address] Sodium [Moles/Vol] 138 mmol/L Normal 136-145 [facility] Comment on above: Performed By: #### P TH, RENAL, MG, [id number], URIC, CBCNO, JAVIER, FE and TIBC #### [facility] [address] Urea nitrogen [Mass/Vol] 24 mg/dL Normal 7-25 [facility] Comment on above: Performed By: #### P TH, RENAL, MG, [id number], URIC, CBCNO, JAVIER, FE and TIBC #### [facility] [address] Serum or plasma anion gap de terminationOrdered By: Theo Thakkar on 08-10-2024 Anion gap [Moles/Vol] Serum or plasma an ion gap determination 6.0-15.0 [facility] Serum or plasma iron binding capacity measurement (mass/volume)Ordered By: Theo Thakkar on 08-10-2024 Iron binding capacity [Mass/Vol] Iron binding capacity [Mass/volume] in Serum or Plasma 255-450 [facility] Serum or plasma iron saturat ion measurement (mass fraction)Ordered By: Theo Thakkar on 08-10-2024 Iron saturation [Mass fraction] Iron saturation [Mass Fraction] in Serum or Plasma Low 20-50 [facility] Sodium [Moles/volume] in Ser um or PlasmaOrdered By: Theo Vivian on 08-10-2024 Sodium [Moles/Vol] Sodium [Moles/volume ] in Serum or Plasma 136-145 [facility] Specific gravity Test strip (U) [Rel density]Ordered By: Theo Thakkar on 08-10-2024 Specific gravity (U) [Rel density] Specific gravity of Urine by Test strip 1.001-1.03 0 [facility] Transferrin [Mass/volume] in Serum or PlasmaOrdered By: Theo Thakkar on 08-10-2024 Transferrin [Mass/Vol] Transferrin [Mass /volume] in Serum or Plasma 203-362 [facility] Urate [Mass/volume] in Serum or PlasmaOrdered By: Theo Vivian on 08-10-2024 Urate [Mass/Vol] Urate [Mass/volume] in Serum or Plasma 4.4-7.6 [facility] Urea nitrogen [Mass/volume] in Serum or PlasmaOrdered By: Theo Vivian on 08-10-2024 Urea nitrogen [Mass/Vol] Urea nitrogen [Mass/volume] in Serum or Plasma 7-25 [facility] Uric Acidon 08-10-2024 Urate [Mass/Vol] 6.2 mg/dL Normal 4.4-7.6 [facility] Comment on above: Performed By: #### P TH, RENAL, MG, [id number], URIC, CBCNO, JAVIER, FE and TIBC #### [facility] [address] Urine Cultureon 08-10-2024 Bacteria identified Cx Nom (U) No Growth 2 Days PERFORMED BY: [place] [address] PATHOLOGIST PROFILER OPERATOR ROS GUNDERSON M.D. Normal [facility] Comment on above: Performed By: #### P TH, RENAL, MG, [id number], URIC, CBCNO, JAVIER, FE and TIBC #### [facility] [address] [place] [address] Urine cultureOrdered By: Abd ul Vivian on 08-10-2024 Bacteria identified Cx Nom (U) Urine culture [facility] Urine protein/creatinine rat ioOrdered By: Theo Vivian on 08-10-2024 Protein/Creatinine (U) [Ratio] Urine protein/creatinine ratio High 0-200 [facility] Urobilinogen Test strip (U) [Mass/Vol]Ordered By: Theo Vivian on 08-10-2024 Urobilinogen (U) [Mass/Vol] Urobilinogen [Mass/volume] in Urine by Test strip Normal [facility] Vitamin D 25 Hydroxy Totalon 08-10-2024 Vitamin D 25 Hydroxy Total 51.2 ng/mL Normal 30-100 [facility] Comment on above: Result Comment: [place] MIN D STATUS 25([place])VITAMIN D RANGE (ng/mL) Deficient <20 Insufficient 20 to <30 Sufficient 30 to 100 Reference: Wayne Patterson, John VILLEGAS et al. Evaluation,treatment, and prevention of vitamin D deficiency; an Endocrine Society clinical practice guideline. JCEM. 2010; 96(7):1911-30. PERFORMED BY: [facility] [address] [place] [address] PATHOLOGIST PROFILER OPERATOR ROS GUNDERSON M.D. Performed By: #### P TH, RENAL, MG, [id number], URIC, CBCNO, JAVIER, FE and TIBC #### [facility] [address] Vitamin D+Metabolites [Mass/ volume] in Serum or PlasmaOrdered By: Theo Thakkar on 08-10-2024 Vitamin D+Metabolites [Mass/Vol] Vitamin D+Metabolites [Mass/volume] in Serum or Plasma 30-100 [facility] Comment on above: VITAMIN D STATUS 25( [place])VITAMIN D RANGE (ng/mL) Deficient <20 Insufficient 20 to <30Sufficient 30 to 100Reference: Wayne Patterson, John VILLEGAS, et al. Evaluation,treatment, and prevention of vitamin D deficiency; an Endocrine Society clinical practice guideline. JCEM. 2010; 96(7):1911-30. pH Test strip (U)Ordered By: Theo Thakkar on 08-10-2024 pH (U) pH of Urine by Test strip 5.0-9.0 [facility] Urology Office/Clinic Noteon 08-08-2024 Urology Office/Clinic Note Urology Office/Clinic Note Chief Complaint gross hematuria HPI Staff 79 year old male patient here for gross hematuria. He says about 2 weeks ago, he saw small amounts of blood on and off, but it was not constantly. He says he has been having a light burning sensation x2 weeks. Denies abdominal pain, does say he has pain on either side of his back, unsure if it is around his flank area. This morning, pt felt as if he could not urinate, like he had a blockage . When he tried to push urine out, he passed something , thinks it may have been a blood clot. He then began urinating bright red blood. Sample IO is strawberry red. Able to see through it. Small clots noted. PVR - 149mL IPSS 14 QOL 6. 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 No pain w/ BM. No blood in stool. No discharge, odor. No perineal pain/pressure, scrotal pain, or suprapubic pain. Physical Exam Vitals & Measurements HR: 94(Peripheral) RR: 18 BP: 126/56 HT: 70 in HT: 178 cm WT: 90.4 kg WT: 199.298 lb BMI: 28.53 General: nontoxic, NAD Mouth: moist mucosa Lungs: normal respiratory effort Cardio: regular rate, good distal perfusion Abdomen: nondistended, no suprapubic distention or tenderness, no CVA tenderness Neurologic: Grossly normal Skin: No rashes or suspicious lesions Assessment/Plan 1. Gross hematuria (R31.0: Gross hematuria) Likely secondary to UTI. Will send urine for C&S. Start empiric Keflex x 7d. CKD stage 3 so will avoid Cipro/Bactrim. Risks/benefits/side effects discussed. Call if sx do not resolve as expected. ER for fever, myalgia, vomiting, flank pain. Ok to continue anticoags for now but if bleeding worsens will need to consider holding. Markedly increase fluids. If develops sx of clot retention can call office during day and I can try to irrigate him. Otherwise if overnight, ER. If Cx neg, will need hematuria eval. Ordered: cephalexin, 500 mg = 1 cap(s), Oral, q12hr, X 7 day(s), # 14 cap(s), Refills(s) 0, Pharmacy: [facility]/pharmacy #[id number], 178, cm, 08/08/24 12:38:00 EDT, Height/Length Dosing, 90.4, kg, 08/08/24 12:38:00 EDT, Weight Dosing 40599 Measure Post Void residual urine and/or bladder capacity by US- non-imaging Body Mass Index (BMI) documented 3008F Current tobacco smoker 1034F Depression Screening Negative 3352F E&M of Est. Patient Moderate 30-39 Min 28936 Influenza immunization status assessed 1030F Medication list documented in medical record 1159F Most recent diastolic blood pressure <80 mm Hg 3078F Patient screen for fall risk: no falls in last year or 1 fall with no injury in last year 1101F Review of all meds by a prescribing practitioner or clinical pharmacist documented in EHR 1160F Systolic BP <130 mm Hg (Most Recent) 3074F Urine Culture Urnls Dip Stick Auto w/o Microscopy POC 93253 Orders: tadalafil, 20 mg = 1 tab(s), Oral, As Directed, Do not exceed 20mg within 48 hours., # 30 tab(s), Refills(s) 1, Pharmacy: [facility] #[id number], 178, cm, 07/07/23 9:25:00 EST, Height/Length Dosing, 92, kg, 07/07/23 9:25:00 EST, Weight Dosing Follow-up With When Contact Information [facility] Additional Instructions: Only if needed/new problems arise. No scheduled appointment indicated at this time. Patient Education Hematuria, Adult Problem List/Past Medical History Ongoing Anxiety BPH with urinary obstruction Chronic pain disorder Chronic prostatitis Erectile dysfunction Feeling of incomplete bladder emptying Gross hematuria Heart disease History of prostate cancer History of UTI HLD (hyperlipidemia) Hypertension Kidney disease Nocturia Prostate cancer Prostate nodule Prostatitis Recurrent UTI Smoker Umbilical hernia UTI (urinary tract infection) UTI symptoms Historical No qualifying data Procedure/Surgical History Procedure on back (10/2023), Mixed beam EBRT (external beam radiation therapy) (04/23/2022), Transurethral resection of prostate (06/06/2021), Cystoscopy (04/23/2021), Transrectal biopsy of prostate using ultrasound guidance (04/23/2021), Cataracts, Colonoscopy, Endarterectomy. Medications amLODIPine 10 mg Tab, 10 mg= 1 tab(s) aspirin 81 mg oral capsule, Oral, q4hr clopidogrel 75 mg Tab, 75 mg= 1 tab(s) Keflex 500 mg Cap, 500 mg= 1 cap(s), Oral, q12hr nitroglycerin 0.4 mg sublingual Tab [place] 5/325 Tab, Oral, q6hr pravastatin 40 mg Tab valsartan 80 mg Tab Vitamin D2 50,000 intl units (1.25 mg) oral capsule, Oral, qWeek Allergies ezetimibe Social History Alcohol Past. Beer. 1-2 times per week., 04/15/2024 Substance Abuse Never., 04/15/2024 Tobacco 10 or more cigarettes (1/2 pack or more)/day in last 30 days Tobacco Use:. Never Smokeless Tobacco Use:. Cigarettes, Yes, 08/08/2024 F (more content not included)... [facility] Comment on above: Result Comment: Elec tronically Signed By: CLAIRE JAMES PA-C\.br\Date and Time Signed: 08/08/24 13:51 EDT Ambulatory Visit Summaryon 1 06-18-2023 Ambulatory Visit Summary Ambulatory Visit Summary BOBOYESENIA Timmy :1945 Visit Date:04/18/2024 Ambulatory Visit Instructions Your Diagnosis History of prostate cancer Recurrent UTI BPH with urinary obstruction Nocturia Erectile dysfunction Your Care Team Attending Physician - PRESTON MAK, Barbara Warner Primary Care Physician - ED, MS. NASIR MAHONEY This Is Your Medications List tadalafil (Cialis 20 mg Tab) Contact prescribing physician if questions or concerns acetaminophen-hydrocodone ([place] 5/325 Tab) amlodipine (amLODIPine 10 mg Tab) aspirin (aspirin 81 mg oral capsule) clopidogrel (clopidogrel 75 mg Tab) cranberry (Azo cranberry) ergocalciferol (Vitamin D2 50,000 intl units (1.25 mg) oral capsule) nitroglycerin (nitroglycerin 0.4 mg sublingual Tab) pravastatin (pravastatin 40 mg Tab) valsartan (valsartan 80 mg Tab) Procedures Performed Procedure on back (10/2023), Mixed beam EBRT (external beam radiation therapy) (04/23/2022), Transurethral resection of prostate (06/06/2021), Cystoscopy (04/23/2021), Transrectal biopsy of prostate using ultrasound guidance (04/23/2021), Cataracts, Colonoscopy, Endarterectomy. Discharge Vitals Temperature (Temporal Artery) 37 ???C Heart Rate (Peripheral) 95 Respiratory Rate 16 Blood Pressure 122/85 Height 178 cm Height 70 in Weight 91.1 kg Weight 200.841 lb BMI 28.75 What to do next Scheduled Follow-Up Appointments Thursday 10:15 AM EST With: Barbara JOHNSTON MD Where: [facility] [address] [place] [address]- You Need to Schedule the Following Appointments Follow Up with Barbara JOHNSTON MD, URL When: Comments: 1 yr w/ PSA Where: [facility] [address], [place] [address]- [phone] Medications What How Much When Instructions Unchanged tadalafil (Cialis 20 mg Tab) 1 Tablets By Mouth As Directed Do not exceed 20mg within 48 hours. Unchanged acetaminophen-hydrocodone ([place] 5/ 325 Tab) By Mouth Every 6 hours Contact prescribing physician if questions or concerns Unchanged amlodipine (amLODIPine 10 mg Tab) 1 Tablets Contact prescribing physician [...] Contact prescribing physician if questions or concerns Allergies ezetimibe Problems Ongoing - Any problem that you are currently receiving treatment for. Anxiety BPH with urinary obstruction Chronic pain disorder Chronic prostatitis Erectile dysfunction Feeling of incomplete bladder emptying Gross hematuria Heart disease History of prostate cancer History of UTI HLD (hyperlipidemia) Hypertension Kidney disease Nocturia Prostate cancer Prostate nodule Prostatitis Recurrent UTI Smoker Umbilical hernia UTI (urinary tract infection) UTI symptoms Patient Survey You may receive a survey via text or e-mail asking about your office visit. Please share your experience with us by completing your survey. We appreciate your feedback and thank you for choosing us for your care. Education Materials Urinary Tract Infection, Adult A urinary tract infection (UTI) is an infection of any part of the urinary tract. The urinary tract includes the kidneys, ureters, bladder, and urethra. These organs make, store, and get rid of urine in the body. An upper UTI affects the ureters and kidneys. A lower UTI affects the bladder and urethra. What are the causes? Most urinary tract infections are caused by bacteria in your genital area around your urethra, where urine leaves your body. These bacteria grow and cause inflammation of your urinary tract. What increases the risk? You are more likely to develop this condition if: ??? You have a urinary catheter that stays in place. ??? You are not able to control when you urinate or have a bowel movement (incontinence). ??? You are female and you: ? Use a spermicide or diaphragm for control. ? Have low estrogen levels. ? Are . ??? You have certain genes that increase your risk. ??? You are sexually active. ??? You take antibiotic medicines. ??? You villegas (more content not included)... 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), nocturia and ED PSA: 04/17/21 - 9.95 11/04/21 - 3.73 05/09/22 - 2.81 11/17/22 - 0.50 05/11/23 - 0.43 10/01/23 - 0.42 12/10/23 - 0.43 Dysuria: denies Incomplete bladder emptying: denies Hematuria: denies Frequency: 3-4 hours Urgency: denies Nocturia: 1-2x Stream: good steady Leaking: if he holds it too long but very little Post void dripping: denies Wearing pads/ Depends: denies Urge incontinence: denies Stress incontinence: denies Incontinence without Sensory Awareness: denies Abdominal pain: denies Flank pain: denies Sexual complaints: denies History of Present Illness Tests reviewed: reviewed UA, ucx I have reviewed the previous health record information and history for this patient from Dr. Johnston. I have reviewed and verified the staff HPI to be accurate for this encounter. Review of Systems PHQ Score Initial Depression Screen Score: 2 SCORE ROS - Provider Constitutional: denies weight [...] See HPI. Physical Exam Vitals & Measurements T: 37 ???C(Temporal Artery) HR: 95(Peripheral) RR: 16 BP: 122/85 HT: 70 in HT: 178 cm WT: 91.1 kg WT: 200.841 lb BMI: 28.75 General Appearance: alert, no distress, well nourished, well developed male. Assessment/Plan 1. History of prostate cancer (Z85.46: Personal history of malignant neoplasm of prostate) PSA: 04/17/21 - 9.95 11/04/21 - 3.73 05/09/22 - 2.81 11/17/22 - 0.50 05/11/23 - 0.43 10/01/23 - 0.42 12/10/23 - 0.43 Neg TRUS/bx done 04/23/21 due to hard nodule at R base to mid. TURP 06/06/21 - G7 (3+4), GG2. Prostate MRI 11/26/21 - suggestive of developing extraprostatic extension EBRT 03/18/22 - 04/23/22. Last saw rad onc 11/2023 and now follows annually vs q6mos. PSA remains stable. Will continue to monitor. -F/u in 1 yr w/ PSA 2. Recurrent UTI (N39.0: Urinary tract infection, site not specified) UCx Mar 2023 - 100k staph tx'd by nephro w amox Apr 2023 - 15k Staphylococcus aureus, tx'd w/Keflex 07/07/23 - 25k Staphylococcus aureus, tx'd w/ Bactrim 04/07/24 - 30k Staph aureus, tx'd w/ doxycycline bid x7 days. UA today shows trace leuks. Finished recent abx course. No longer experiencing odorous urine. Also drank baking soda with water and had sx relief. Takes cranberry pills daily. Admits he has limited fluid intake. Recommended pt to increase fluid intake to improve urination and thus prevent infections. -Increase fluid intake -Cont taking cranberry pills 3. BPH with urinary obstruction (N40.1: Benign prostatic hyperplasia with lower urinary tract symptoms) S/p TURP 06/06/21. Not currently taking any prostate meds. Good stream. Not voicing any urinary habit complaints. 4. Nocturia (R35.1: Nocturia) PVR (cc): 04/21/23 - 17 S/p TURP 06/06/21. Had initial sx improvement but did not last. Hx of EBRT. Failed Terazosin and Oxybutynin. Experienced bone pain and nausea with Detrol. Stopped DDAVP at prior OV due to nocturia being related to back or sleep apnea vs urge to void. Getting up 1-2x/night (was 4-6x). Not very bothersome. 5. Erectile dysfunction (N52.9: Male erectile dysfunction, unspecified) Has tried Viagra in the past but d/c due to expense. Denies hx of MIs. Not on Nitro. Pt has not been told he isn't healthy enough for exercise/sex. Taking Cialis 20mg prn. No concerns. Follow-up With When Contact Information PRESTON MAK, Barbara Warner, URL [facility] [address], [place] [address]- [phone] Additional Instructions: 1 yr w/ PSA Patient Education Urinary Tract Infection, Adult I, Rosario Byrne, personally scribed for Dr. Johnston on 04/18/2024 12:09:55. . Documentation recorded by the scribe, Rosario Byrne, accurately reflects the services(s) I performed and decisions made by me. Authenticated by Dr. Johnston on 04/18/2024 12:11:29. Problem List/Past Medical History Ongoing Anxiety BPH with urinary obstruction Chronic pain disorder Chronic prostatitis Erectile dysfunction Feeling of incomplete bladder emptying Gross hematuria Heart disease History of prostate cancer History of UTI HLD (hyperlipidemia) Hypertension Kidney disease Nocturia Prostate cancer Prostate nodule Prostatitis Recurrent UTI Smoker Umbilical hernia UTI (urinary tract infection) UTI (more content not included)... Normal [facility] Comment on above: Result Comment: Elec tronically Signed By: Barbara JOHNSTON MD\.br\Date and Time Signed: 04/18/24 12:11 EST\.br\Electronically Co-Signed By: Rosario Byrne\.br\Date and Time Co-Signed: 04/18/24 12:10 EST C Urineon 04-10-2024 Bacteria identified Cx Nom (U) Microbiology PROCEDURE: Urine Culture [R1] SOURCE: U Random BODY SITE: COLLECTED DATE/TIME: 04/07/2024 14:25 EST RECEIVED DATE/TIME: 04/07/2024 19:36 EST START DATE/TIME: 04/07/2024 19:36 EST FREE TEXT SOURCE: Karime Bee, Karime Stone FINAL REPORTS Final Report [] Verified Date/Time: 04/10/2024 15:11 EST 30,000 cfu/ml Staphylococcus aureus SUSCEPTIBILITY RESULTS _ LEGEND: S=Susceptible, N/R=Not Reported, Blank=Data not available, or drug not advisable or tested, I=Intermediate, ESBL=Extended spectrum beta-lactamase, R=Resistant, TFG=Thymidine-dependent strain, CATRINA=Beta-lactamase positive, ROSLNY=mcg/m;(mg/L), S*=Predicted susceptible interp, R*=Predicted resistant interp SA Antibiotic ROSLYN Dilutn ROSLYN Interp Amoxicillin/ <=4/2 S Clavulanate Ampicillin/ <=8/4 S Sulbactam Cefazolin <=8 S Ceftaroline <=0.5 S Ciprofloxacin 2 I Daptomycin <=1 S Gentamicin <=4 S Levofloxacin <=1 S Linezolid <=2 S Nitrofurantoin <=32 S Oxacillin <=0.25 S Penicillin <=0.03 S Rifampin <=1 S Tetracycline <=4 S Trimethoprim/ <=0.5/9.5 S Sulfa Vancomycin 1 S Performing Locations R1: This test was performed at: [facility], [address] [place] [address], [id number] , , Normal [facility] Comment on above: Performed By: #### 2 [id number] #### [facility] [address] [place] [id number] Albumin [Mass/volume] in Ser um or Plasma by Bromocresol green (BCG) dye binding methoOrdered By: Theo Thakkar on 02-25-2024 Albumin BCG dye [Mass/Vol] 4.2 g/dL 3.5-5.7 [facility] Bacteria [Presence] in Urine by AutomatedOrdered By: Theo Thakkar on 02-25-2024 Bacteria Auto Ql (U) None seen [HPF] None Seen [facility] Bilirubin Test strip Ql (U)O rdered By: Theo Thakkar on 02-25-2024 Bilirubin Ql (U) Negative Negative [facility] Calcium [Mass/volume] in Ser um or PlasmaOrdered By: Theo Thakkar on 02-25-2024 Calcium [Mass/Vol] 9.4 mg/dL Normal 8.6-10.3 [facility] Comment on above: Order Comment: Reaso n for Exam Chronic kidney disease, stage III (moderate);Charly hy kid w cr Performed By: #### P TH, RENAL, MG, [id number], URIC, CBCNO, JAVIER, FE and TIBC #### [facility] [address] Carbon dioxide, total [Moles /volume] in Serum or PlasmaOrdered By: Theo Vivian on 02-25-2024 CO2 [Moles/Vol] 24.9 mmol/L Normal 21.0-31.0 [facility] Comment on above: Order Comment: Reaso n for Exam Chronic kidney disease, stage III (moderate);Charly hy kid w cr Performed By: #### P TH, RENAL, MG, [id number], URIC, CBCNO, JAVIER, FE and TIBC #### [facility] [address] [place] [address] [place] Chloride [Moles/volume] in S jaime or PlasmaOrdered By: Theo Vivian on 02-25-2024 Chloride [Moles/Vol] 105 mmol/L Normal 98-107 [facility] Comment on above: Order Comment: Reaso n for Exam Chronic kidney disease, stage III (moderate);Charly hy kid w cr Performed By: #### P TH, RENAL, MG, [id number], URIC, CBCNO, JAVIER, FE and TIBC #### [facility] [address] [place] [address] Color of Urine by AutoOrdere d By: Theo Joycer on 02-25-2024 Color (U) Yellow Normal Yellow [facility] Comment on above: Order Comment: Reaso n for Exam Chronic kidney disease, stage III (moderate);Charly hy kid w cr Name Collection Type:: Clean-Voided Midstream Performed By: #### P TH, RENAL, MG, [id number], URIC, CBCNO, JAVIER, FE and TIBC #### [facility] [address] [place], [place] [id number] [place] Creatinine [Mass/volume] in Serum or PlasmaOrdered By: Theo Vivian on 02-25-2024 Creatinine [Mass/Vol] 1.67 mg/dL High 0.70-1.30 [facility] Comment on above: Order Comment: Reaso n for Exam Chronic kidney disease, stage III (moderate);Charly hy kid w cr Performed By: #### P TH, RENAL, MG, [id number], URIC, CBCNO, JAVIER, FE and TIBC #### [facility] [address] Creatinine [Mass/volume] in UrineOrdered By: Theo Thakkar on 02-25-2024 Creatinine (U) [Mass/Vol] 173.00 mg/dL [facility] Comment on above: No reference range e stablished Dipstick and Microscopicon 0 02-25-2024 Bacteria,Urine None Seen Normal None Seen [facility] Comment on above: Order Comment: Reaso n for Exam Chronic kidney disease, stage III (moderate);Charly hy kid w cr Name Collection Type:: Clean-Voided Midstream Performed By: #### P TH, RENAL, MG, [id number], URIC, CBCNO, JAVIER, FE and TIBC #### [facility] [address] Bilirubin,Urine Negative Normal Negative [facility] Comment on above: Order Comment: Reaso n for Exam Chronic kidney disease, stage III (moderate);Charly hy kid w cr Name Collection Type:: Clean-Voided Midstream Performed By: #### P TH, RENAL, MG, [id number], URIC, CBCNO, JAVIER, FE and TIBC #### [facility] [address] Glucose Ql (U) Normal Normal Normal [facility] Comment on above: Order Comment: Reaso n for Exam Chronic kidney disease, stage III (moderate);Charly hy kid w cr Name Collection Type:: Clean-Voided Midstream Performed By: #### P TH, RENAL, MG, [id number], URIC, CBCNO, JAVIER, FE and TIBC #### [facility] [address] [place] [id number] [facility] Granular Casts, Urine 5-9 High None Seen [facility] Comment on above: Order Comment: Reaso n for Exam Chronic kidney disease, stage III (moderate);Charly hy kid w cr Name Collection Type:: Clean-Voided Midstream Performed By: #### P TH, RENAL, MG, [id number], URIC, CBCNO, JAVIER, FE and TIBC #### [address] Hyaline Casts,Urine 20-49 High 0-8 [facility] Comment on above: Order Comment: Reaso n for Exam Chronic kidney disease, stage III (moderate);Charly palomo cr Name Collection Type:: Clean-Voided Midstream Performed By: #### P TH, RENAL, MG, [id number], URIC, CBCNO, JAVIER, FE and TIBC #### [address] Mucus,Urine Rare Normal [facility] Comment on above: Order Comment: Reaso n for Exam Chronic kidney disease, stage III (moderate);Charly palomo cr Name Collection Type:: Clean-Voided Midstream Result Comment: PERF ORMED BY: [place] [address] PATHOLOGIST PROFILER OPERATOR ANA HURT M.D. Performed By: #### P TH, RENAL, MG, [id number], URIC, CBCNO, JAVIER, FE and TIBC #### [address] Nitrite,Urine Negative Normal Negative [facility] Comment on above: Order Comment: Reaso n for Exam Chronic kidney disease, stage III (moderate);Charly palomo cr Name Collection Type:: Clean-Voided Midstream Performed By: #### P TH, RENAL, MG, [id number], URIC, CBCNO, JAVIER, FE and TIBC #### [address] Occult Blood,Urine 1+ High Negative [facility] Comment on above: Order Comment: Reaso n for Exam Chronic kidney disease, stage III (moderate);Charly hill w cr Name Collection Type:: Clean-Voided Midstream Performed By: #### P TH, RENAL, MG, [id number], URIC, CBCNO, JAVIER, FE and TIBC #### [address] [address] [place] RBC,Urine 10-19 High 0-4 [facility] Comment on above: Order Comment: Reaso n for Exam Chronic kidney disease, stage III (moderate);Charly hill w cr Name Collection Type:: Clean-Voided Midstream Performed By: #### P TH, RENAL, MG, [id number], URIC, CBCNO, JAVIER, FE and TIBC #### [facility] [address] [place] [address] Specificy [place],Urine 1.018 Normal 1.001-1.03 0 [facility] Comment on above: Order Comment: Reaso n for Exam Chronic kidney disease, stage III (moderate);Charly tyron hill w cr Name Collection Type:: Clean-Voided Midstream Performed By: #### P TH, RENAL, MG, [id number], URIC, CBCNO, JAVIER, FE and TIBC #### [facility] [address] [place] [address] Squamous Epithelial Cell,Urine 1-2 Normal 0-2 [facility] Comment on above: Order Comment: Reaso n for Exam Chronic kidney disease, stage III (moderate);Charly hill w cr Name Collection Type:: Clean-Voided Midstream Performed By: #### P TH, RENAL, MG, [id number], URIC, CBCNO, JAVIER, FE and TIBC #### [facility] [address] [place] [address] Urobilinogen,Urine Normal Normal Normal [facility] Comment on above: Order Comment: Reaso n for Exam Chronic kidney disease, stage III (moderate);Charly hill w cr Name Collection Type:: Clean-Voided Midstream Performed By: #### P TH, RENAL, MG, [id number], URIC, CBCNO, JAVIER, FE and TIBC #### [facility] [address] [place] [address] WBC CLUMP, Urine Many High None Seen [facility] Comment on above: Order Comment: Reaso n for Exam Chronic kidney disease, stage III (moderate);Charly tyron kid w cr Name Collection Type:: Clean-Voided Midstream Performed By: #### P TH, RENAL, MG, [id number], URIC, CBCNO, JAVIER, FE and TIBC #### [facility] [address] WBC,Urine Innumerable High 0-4 [facility] Comment on above: Order Comment: Reaso n for Exam Chronic kidney disease, stage III (moderate);Charly hy kid w cr Name Collection Type:: Clean-Voided Midstream Performed By: #### P TH, RENAL, MG, [id number], URIC, CBCNO, JAVIER, FE and TIBC #### [facility] [address] Epithelial cells.squamous [# /area] in Urine sediment by Automated countOrdered By: Theo Vivian on 02-25-2024 Epithelial cells.squamous Auto (Urine sed) [#/Area] 1-2 [HPF] 0-2 [facility] Erythrocyte distribution wid th [Ratio] by Automated countOrdered By: Theo Vivian on 02-25-2024 Erythrocyte distribution width (RBC) [Ratio] 15.0 % High 12.0-14.8 [facility] Comment on above: Order Comment: Reaso n for Exam Chronic kidney disease, stage III (moderate);Charly hy kid w cr Performed By: #### C BCNO #### [address] Erythrocytes [#/area] in Uri ne sediment by Automated countOrdered By: Theo Vivian on 02-25-2024 RBC Auto (Urine sed) [#/Area] 10-19 [HPF] High 0-4 [facility] Erythrocytes [#/volume] in B lood by Automated countOrdered By: Theo Vivian on 02-25-2024 RBC (Bld) [#/Vol] 4.02 10*6/uL Normal 3.90-5.60 [facility] Comment on above: Order Comment: Reaso n for Exam Chronic kidney disease, stage III (moderate);Charly hy kid w cr Performed By: #### C BCNO #### [facility] [address] [place] [address] [place] Glucose [Mass/volume] in Ser um or PlasmaOrdered By: Theo Vivian on 02-25-2024 Glucose [Mass/Vol] 95 mg/dL Normal 70-100 [facility] Comment on above: ADA recommended refe rence rangeRandom Glucose Reference Range is dependent on time and content of last meal. Glucose of more than 200 mg/dL in a nonstressed, ambulatory subject supports the diagnosis of Diabetes Mellitus. Order Comment: Reaso n for Exam Chronic kidney disease, stage III (moderate);Charly hill w cr Result Comment: [place] om Glucose Reference Range is dependent on time and content of last meal. Glucose of more than 200 mg/dL in a nonstressed, ambulatory subject supports the diagnosis of Diabetes Mellitus. ADA recommended reference range Performed By: #### P TH, RENAL, MG, [id number], URIC, CBCNO, JAVIER, FE and TIBC #### [facility] [address] Glucose [Mass/volume] in Uri ne by Test stripOrdered By: Theo Thakkar on 02-25-2024 Glucose Test strip (U) [Mass/Vol] Normal mg/dL Normal [facility] Granular casts [#/area] in U rine by Computer assisted methodOrdered By: Theo Thakkar on 02-25-2024 Granular casts Computer assisted (U) [#/Area] 5-9 [LPF] High None Seen [facility] Hematocrit [Volume Fraction] of Blood by Automated countOrdered By: Theo Thakkar on 02-25-2024 Hematocrit (Bld) [Volume fraction] 34.7 % Low 38.8-50.0 [facility] Comment on above: Order Comment: Reaso n for Exam Chronic kidney disease, stage III (moderate);Charly hill w cr Performed By: #### C BCNO #### [facility] [address] Hemoglobin Test strip Ql (U) Ordered By: Theo Thakkar on 02-25-2024 Hemoglobin Ql (U) 1+ High Negative [facility] Hemoglobin [Mass/volume] in BloodOrdered By: Theo Thakkar on 02-25-2024 Hemoglobin (Bld) [Mass/Vol] 11.4 g/dL Low 13.0-17.0 [facility] Comment on above: Order Comment: Reaso n for Exam Chronic kidney disease, stage III (moderate);Charly hill w cr Performed By: #### C BCNO #### [address] Hemogram CBC Without Diffon 02-25-2024 Mean Corpuscular HGB Conc 32.9 g/dL Normal 32.5-35.6 [facility] Comment on above: Order Comment: Reaso n for Exam Chronic kidney disease, stage III (moderate);Charly palomo cr Performed By: #### C BCNO #### [address] WBC (Bld) [#/Vol] 6.9 10*3/uL Normal 4.1-10.5 [facility] Comment on above: Order Comment: Reaso n for Exam Chronic kidney disease, stage III (moderate);Charly palomo cr Performed By: #### C BCNO #### [address] Hyaline casts [#/area] in Ur ine sediment by Automated countOrdered By: Theo Thakkar on 02-25-2024 Hyaline casts Auto (Urine sed) [#/Area] 20-49 [LPF] High 0-8 [facility] Ketones [Presence] in Urine by Test stripOrdered By: Theo Thakkar on 02-25-2024 Ketones Ql (U) Negative Normal Negative [facility] Comment on above: Order Comment: Reaso n for Exam Chronic kidney disease, stage III (moderate);Charly palomo cr Name Collection Type:: Clean-Voided Midstream Performed By: #### P TH, RENAL, MG, [id number], URIC, CBCNO, JAVIER, FE and TIBC #### [facility] [address] [place] [address] Leukocyte clumps [Presence] in Urine by AutomatedOrdered By: Theo Thakkar on 02-25-2024 Leukocyte clumps Auto Ql (U) Many [LPF] High None Seen [facility] Leukocyte esterase [Presence ] in Urine by Test stripOrdered By: Theo Thakkar on 02-25-2024 Leukocyte esterase Test strip Ql (U) 4+ High Negative [facility] Comment on above: Order Comment: Reaso n for Exam Chronic kidney disease, stage III (moderate);Charly hy kid w cr Name Collection Type:: Clean-Voided Midstream Performed By: #### P TH, RENAL, MG, [id number], URIC, CBCNO, JAVIER, FE and TIBC #### [facility] [address] Leukocytes [#/area] in Urine sediment by Automated countOrdered By: Theo Thakkar on 02-25-2024 WBC Auto (Urine sed) [#/Area] Innumerable [HPF] High 0-4 [facility] Leukocytes [#/volume] correc diana for nucleated erythrocytes in Blood by Automated counOrdered By: Theo Thakkar on 02-25-2024 WBC corrected for nucl RBC Auto (Bld) [#/Vol] 6.9 10*3/uL 4.1-10.5 [facility] MCH [Entitic mass] by Automa diana countOrdered By: Theo Thakkar on 02-25-2024 MCH (RBC) [Entitic mass] 28.4 pg Normal 27.5-35.2 [facility] Comment on above: Order Comment: Reaso n for Exam Chronic kidney disease, stage III (moderate);Charly hy kid w cr Performed By: #### C BCNO #### [facility] [address] MCHC Auto (RBC) [Mass/Vol]Or dered By: Theo Thakkar on 02-25-2024 MCHC (RBC) [Mass/Vol] 32.9 g/dL 32.5-35.6 [facility] MCV [Entitic volume] by Auto mated countOrdered By: Theo Thakkar on 02-25-2024 MCV (RBC) [Entitic vol] 86.3 fL Normal 83.5-101 [facility] Comment on above: Order Comment: Reaso n for Exam Chronic kidney disease, stage III (moderate);Charly hy kid w cr Performed By: #### C BCNO #### [facility] [address] [place] [address] [place] Magnesium [Mass/volume] in S jaime or PlasmaOrdered By: Theo Thakkar on 02-25-2024 Magnesium [Mass/Vol] 2.2 mg/dL Normal 1.9-2.7 [facility] Comment on above: Order Comment: Reaso n for Exam Chronic kidney disease, stage III (moderate);Charly hy kid w cr Performed By: #### P TH, RENAL, MG, [id number], URIC, CBCNO, JAVIER, FE and TIBC #### [facility] [address] [place] [id number] [facility] Mucus [Presence] in Urine by AutomatedOrdered By: Theo Thakkar on 02-25-2024 Mucus Auto Ql (U) Rare [LPF] [facility] Nitrite Test strip Ql (U)Ord ered By: Theo Thakkar on 02-25-2024 Nitrite Ql (U) Negative Negative [facility] No Panel InformationOrdered By: Theo Thakkar on 02-25-2024 Estimated GFR (CKD-EPI) 41.634 mL/Min [facility] Creatinine Clearance (Chem N/A [facility] Parathyrin.intact [Mass/volu me] in Serum or PlasmaOrdered By: Theo Thakkar on 02-25-2024 Parathyrin.intact [Mass/Vol] 97.8 pg/mL High 12-88 [facility] Parathyroid Hormone Intacton 02-25-2024 Parathyroid Hormone Intact 97.8 pg/mL High 12 [facility] Comment on above: Order Comment: Reaso n for Exam Chronic kidney disease, stage III (moderate);Charly tyron kid w cr Result Comment: PERF ORMED BY: [facility] [address] [facility] [address] PATHOLOGIST PROFILER OPERATOR ANA HURT M.D. Performed By: #### P TH, RENAL, MG, [id number], URIC, CBCNO, JAVIER, FE and TIBC #### [facility] [address] [place] [id number] [place] Phosphate [Mass/volume] in S jaime or PlasmaOrdered By: Theo Thakkar on 02-25-2024 Phosphate [Mass/Vol] 3.6 mg/dL Normal 2.5-4.5 [facility] Comment on above: Order Comment: Reaso n for Exam Chronic kidney disease, stage III (moderate);Charly hy kid w cr Performed By: #### P TH, RENAL, MG, [id number], URIC, CBCNO, JAVIER, FE and TIBC #### [facility] [address] [place] [address] [place] Platelet mean volume [Entiti c volume] in Blood by Automated countOrdered By: Theo Thakkar on 02-25-2024 Platelet mean volume (Bld) [Entitic vol] 8.9 fL Normal 6.6-10.1 [facility] Comment on above: Order Comment: Reaso n for Exam Chronic kidney disease, stage III (moderate);Charly hy kid w cr Result Comment: PERF ORMED BY: [place] [address] PATHOLOGIST PROFILER OPERATOR ANA HURT M.D. Performed By: #### C BCNO #### [facility] [address] [place] [address] [place] Platelets [#/volume] in Bloo d by Automated countOrdered By: Theo Thakkar on 02-25-2024 Platelets (Bld) [#/Vol] 305 10*3/uL Normal 150-450 [facility] Comment on above: Order Comment: Reaso n for Exam Chronic kidney disease, stage III (moderate);Charly hy kid w cr Performed By: #### C BCNO #### [facility] [address] [place] [address] [place] Potassium [Moles/volume] in Serum or PlasmaOrdered By: Theo Thakkar on 02-25-2024 Potassium [Moles/Vol] 4.8 mmol/L Normal 3.5-5.1 [facility] Comment on above: Order Comment: Reaso n for Exam Chronic kidney disease, stage III (moderate);Charly hy kid w cr Performed By: #### P TH, RENAL, MG, [id number], URIC, CBCNO, JAVIER, FE and TIBC #### [address] Protein Creat Ratio Ur Rando mon 02-25-2024 Creatinine, Urine (Random) 173.00 mg/dL Normal [facility] Comment on above: Order Comment: Reaso n for Exam Chronic kidney disease, stage III (moderate);Charly hy kid w cr Result Comment: No r eference range established Performed By: #### P ROCRERAT #### [address] Urine Protein/Creatinine Ratio 786 mg/g{Cre} High 0-200 [facility] Comment on above: Order Comment: Reaso n for Exam Chronic kidney disease, stage III (moderate);Charly hy kid w cr Result Comment: PERF ORMED BY: [place] [address] PATHOLOGIST PROFILER OPERATOR ANA HURT M.D. Performed By: #### P ROCRERAT #### [address] Protein [Mass/volume] in Uri neOrdered By: Theo Vivian on 02-25-2024 Protein (U) [Mass/Vol] 136 mg/dL High 0-9 [facility] Comment on above: Order Comment: Reaso n for Exam Chronic kidney disease, stage III (moderate);Charly hy kid w cr Performed By: #### P ROCRERAT #### [place] [address] [place] Protein [Mass/volume] in Uri ne by Test stripOrdered By: Theo Vivian on 02-25-2024 Protein (U) [Mass/Vol] 100 mg/dL High Negative [facility] Comment on above: Order Comment: Reaso n for Exam Chronic kidney disease, stage III (moderate);Charly hy kid w cr Name Collection Type:: Clean-Voided Midstream Performed By: #### P TH, RENAL, MG, [id number], URIC, CBCNO, JAVIER, FE and TIBC #### [address] Renal Function Panelon 02-24 Albumin [Mass/Vol] 4.2 g/dL Normal 3.5-5.7 [facility] Comment on above: Order Comment: Reaso n for Exam Chronic kidney disease, stage III (moderate);Charly hy kid w cr Performed By: #### P TH, RENAL, MG, [id number], URIC, CBCNO, JAVIER, FE and TIBC #### [facility] [address] [place] [id number] [facility] GFR/1.73 sq M.predicted MDRD (S/P/Bld) [Vol rate/Area] 41.634 mL/min/{1.73_m2} Normal [facility] Comment on above: Order Comment: Reaso n for Exam Chronic kidney disease, stage III (moderate);Charly hy kid w cr Performed By: #### P TH, RENAL, MG, [id number], URIC, CBCNO, JAVIER, FE and TIBC #### [facility] [address] [place] [id number] [facility] Serum or plasma anion gap de terminationOrdered By: Theo Thakkar on 02-25-2024 Anion gap [Moles/Vol] 11.9 mmol/L Normal 6.0-15.0 [facility] Comment on above: Order Comment: Reaso n for Exam Chronic kidney disease, stage III (moderate);Charly hy kid w cr Performed By: #### P TH, RENAL, MG, [id number], URIC, CBCNO, JAVIER, FE and TIBC #### [facility] [address] [place] [address] [place] Sodium [Moles/volume] in Ser um or PlasmaOrdered By: Theo Joycer on 02-25-2024 Sodium [Moles/Vol] 137 mmol/L Normal 136-145 [facility] Comment on above: Order Comment: Reaso n for Exam Chronic kidney disease, stage III (moderate);Charly hy kid w cr Performed By: #### P TH, RENAL, MG, [id number], URIC, CBCNO, JAVIER, FE and TIBC #### [facility] [address] [place] [id number] [place] Specific gravity Test strip (U) [Rel density]Ordered By: Theo Thakkar on 02-25-2024 Specific gravity (U) [Rel density] 1.018 1.001-1.03 0 [facility] Urate [Mass/volume] in Serum or PlasmaOrdered By: Theo Thakkar on 02-25-2024 Urate [Mass/Vol] 5.7 mg/dL Normal 4.4-7.6 [facility] Comment on above: Order Comment: Reaso n for Exam Chronic kidney disease, stage III (moderate);Charly w cr Performed By: #### P TH, RENAL, MG, [id number], URIC, CBCNO, JAVIER, FE and TIBC #### [facility] [address] [place] [address] [place] Urea nitrogen [Mass/volume] in Serum or PlasmaOrdered By: Theo Thakkar on 02-25-2024 Urea nitrogen [Mass/Vol] 23 mg/dL Normal 7-25 [facility] Comment on above: Order Comment: Reaso n for Exam Chronic kidney disease, stage III (moderate); kid w cr Performed By: #### P TH, RENAL, MG, [id number], URIC, CBCNO, JAVIER, FE and TIBC #### [facility] [address] [place] [address] [place] Urine Cultureon 02-25-2024 Bacteria identified Cx Nom (U) ORGANISM: Staphylococcus aureus (O:STAAUR) [place] Count >100,000 Aerobic ROSLYN Charge (PCMIC38) SUSCEPTIBILITY [...] RESISTANT TO ALL B-LACTAM DRUGS. PERFORMED BY: [place] [address] PATHOLOGIST PROFILER OPERATOR ANA HURT M.D. Normal [facility] Comment on above: Performed By: #### P TH, RENAL, MG, [id number], URIC, CBCNO, JAVIER, FE and TIBC #### [facility] [address] Urine appearanceOrdered By: Theo Thakkar on 02-25-2024 Appearance (U) Cloudy Critically abnormal Clear [facility] Comment on above: Order Comment: Reaso n for Exam Chronic kidney disease, stage III (moderate);Charly palma Name Collection Type:: Clean-Voided Midstream Performed By: #### P TH, RENAL, MG, [id number], URIC, CBCNO, JAVIER, FE and TIBC #### [facility] [address] Urine culture routineOrdered By: Theo Thakkar on 02-25-2024 Bacteria identified Cx Nom (U) Staphylococcus aureus Abnormal [facility] Urine protein/creatinine rat ioOrdered By: Theo Thakkar on 02-25-2024 Protein/Creatinine (U) [Ratio] 786 mg/g{Cre} High 0-200 [facility] Urobilinogen Test strip (U) [Mass/Vol]Ordered By: Theo Thakkar on 02-25-2024 Urobilinogen (U) [Mass/Vol] Normal mg/dL Normal [facility] Vitamin D 25 Hydroxy Totalon 02-25-2024 Vitamin D 25 Hydroxy Total 60.3 ng/mL Normal 30-100 [facility] Comment on above: Order Comment: Reaso n for Exam Chronic kidney disease, stage III (moderate);Charly palomo cr Result Comment: [place] MIN D STATUS 25([place])VITAMIN D RANGE (ng/mL) Deficient <20 Insufficient 20 to <30 Sufficient 30 to 100 Reference: Wayne Patterson, John VILLEGAS, et al. Evaluation,treatment, and prevention of vitamin D deficiency; an Endocrine Society clinical practice guideline. JCEM. 2010; 96(7):191-. PERFORMED BY: [place] [address] PATHOLOGIST PROFILER OPERATOR ANA HURT M.D. Performed By: #### P TH, RENAL, MG, [id number], URIC, CBCNO, JAVIER, FE and TIBC #### [facility] [address] [place] [id number] [facility] Vitamin D+Metabolites [Mass/ volume] in Serum or PlasmaOrdered By: Theo Thakkar on 02-25-2024 Vitamin D+Metabolites [Mass/Vol] 60.3 ng/mL 30-100 [facility] Comment on above: VITAMIN D STATUS 25( [place])VITAMIN D RANGE (ng/mL) Deficient <20 Insufficient 20 to <30Sufficient 30 to 100Reference: Wayne Patterson, John VILLEGAS, et al. Evaluation,treatment, and prevention of vitamin D deficiency; an Endocrine Society clinical practice guideline. JCEM. 2010; 96(7):1911-. pH of Urine by Test stripOrd ered By: Theo Thakkar on 02-25-2024 pH (U) 6.0 [pH] Normal 5.0-9.0 [facility] Comment on above: Order Comment: Neftalio n for Exam Chronic kidney disease, stage III (moderate);Charly tyron kid w cr Name Collection Type:: Clean-Voided Midstream Performed By: #### P TH, RENAL, MG, [id number], URIC, CBCNO, JAVIER, FE and TIBC #### [facility] [address] [place] [id number] [facility] Office Visiton 01-12-2024 Follow-up visit [id number] Dianne Broussard 1945 M Date Provider Department Center 01/12/2024 JOELLEN STANTON [facility] Second Fl Family History Problem Relation Age of Onset Hypertension Mother Diabetes Father Family Status - Relation Status Age at Mother Father Level of Service:08227 ID POSTOP FOLLOW UP VISIT RELATED TO ORIGINAL PX Reason for Visit and Comments: Post-op [483] - Patient is here for a 4-[address] madera [facility] Office Visiton 12-02-2023 Follow-up visit [id number] Dianne Broussard ld 1945 M Date Provider Department Center 12/02/2023 426-VASILE MADERA ONC DCC Family History Problem Relation Age of Onset Hypertension Mother Diabetes Father Family Status - Relation Status Age at Mother Father Level of Service:02430 ID POSTOP FOLLOW UP VISIT RELATED TO ORIGINAL PX Reason for Visit and Comments: Post-op [483] Normal [facility] BASIC METABOLIC PANELon 10-30 Anion gap [Moles/Vol] 12 mmol/L Normal 7-20 [facility] Comment on above: Performed By: #### L [id number] #### [facility] ([facility]) [address] [place] [address] Calcium [Mass/Vol] 9.3 mg/dL Normal 8.6-10.3 [facility] Comment on above: Performed By: #### L [id number] #### [facility] ([facility]) [address] [place] [address] Chloride [Moles/Vol] 104 mmol/L Normal 98-107 [facility] Comment on above: Performed By: #### L [id number] #### [facility] ([facility]) [address] [place] [address] CO2 [Moles/Vol] 23 mmol/L Normal 21-31 [facility] Comment on above: Performed By: #### L [id number] #### [facility] ([facility]) [address] [place] [address] Creatinine [Mass/Vol] 1.51 mg/dL High 0.70-1.30 [facility] Comment on above: Performed By: #### L [id number] #### [facility] ([facility]) [address] [place] [address] GLOMERULAR FILTRATION RATE ML/MIN/1.73 SQ M.PREDICTED 47.0 mL/min/1.73m*2 Low >60.0 [facility] Comment on above: Result Comment: [facility]???s estimated glomerular filtration rate (eGFR) will [...] group of individuals. Performed By: #### L [id number] #### [facility] ([facility]) [address] [place] [address] Glucose [Mass/Vol] 128 mg/dL High 70-100 [facility] Comment on above: Performed By: #### L [id number] #### [facility] ([facility]) [address] [place] [address] Potassium [Moles/Vol] 4.6 mmol/L Normal 3.5-5.1 [facility] Comment on above: Performed By: #### L [id number] #### [facility] ([facility]) [address] [place] [address] Sodium [Moles/Vol] 134 mmol/L Low 136-145 [facility] Comment on above: Performed By: #### L [id number] #### [facility] ([facility]) [address] [place] [address] Urea nitrogen [Mass/Vol] 25 mg/dL Normal 7-25 [facility] Comment on above: Performed By: #### L [id number] #### [facility] ([facility]) [address] [place] [address] UREA NITROGEN/CREATININE (MASS RATIO) IN SER/PLAS 16.6 Normal [facility] Comment on above: Performed By: #### L [id number] #### [facility] ([facility]) [address] [place] [address] CBCon 11-18-2023 Erythrocyte distribution width (RBC) [Ratio] 13.4 % Normal 11.5-15.0 [facility] Comment on above: Performed By: #### L [id number] #### [facility] ([facility]) [address] [place] [address] ERYTHROCYTE MEAN CORPUSCULAR HEMOGLOBIN CONCENTRATION (G/DL) BY AUTOMATED 33.3 g/dL Normal 32.0-35.0 [facility] Comment on above: Performed By: #### L [id number] #### [facility] ([facility]) [address] [place] [address] Hematocrit (Bld) [Volume fraction] 35.1 % Low 39.0-55.0 [facility] Comment on above: Performed By: #### L [id number] #### [facility] ([facility]) [address] [place] [address] Hemoglobin (Bld) [Mass/Vol] 11.7 g/dL Low 13.0-17.0 [facility] Comment on above: Performed By: #### L [id number] #### [facility] ([facility]) [address] [place] [address] MCH (RBC) [Entitic mass] 30.5 pg Normal 27.0-33.0 [facility] Comment on above: Performed By: #### L [id number] #### [facility] ([facility]) [address] [place] [address] MCV (RBC) [Entitic vol] 91.6 fL Normal 82.0-98.0 [facility] Comment on above: Performed By: #### L [id number] #### [facility] ([facility]) [address] [place] [address] PLATELETS (10*3/UL) IN BLOOD AUTOMATED COUNT 270 10*3/uL Normal 150-400 [facility] Comment on above: Performed By: #### L [id number] #### [facility] ([facility]) [address] [place] [address] RBC (Bld) [#/Vol] 3.83 10*6/uL Low 4.20-5.70 [facility] Comment on above: Performed By: #### L [id number] #### [facility] ([facility]) [address] [place] [address] WBC (Bld) [#/Vol] 14.40 10*3/uL High 4.00-10.60 [facility] Comment on above: Performed By: #### L [id number] #### [facility] ([facility]) [address] [place] [address] DSon 11-18-2023 DS Admission Admitted 11/17/2023 for [...] Commonly known as: Lioresal ergocalciferol 1.25 MG (17602 Units) capsule Commonly known as: Vitamin D-2 gabapentin 100 mg capsule Commonly known as: Neurontin pravastatin 10 mg tablet Commonly known as: Pravachol valsartan 80 mg tablet Commonly known as: Diovan varenicline 0.5 mg tablet Commonly known as: Chantix STOP taking these medications HYDROcodone-acetaminophen 7.5-325 mg tablet Commonly known as: [place] Where to Get Your Medications These medications were sent to [facility] - [place], [place] - [address] [place] [address] oxyCODONE 5 mg immediate release tablet tiZANidine [...] Dr. Madera in about 2 weeks, Call [phone] (Joellen) or [phone] (Dr. Madera) if not already scheduled, Vasile Madera MD Diet Continue on the same type of diet and foods as you were eating before your admission. Drink plenty of water. Allergies Ezetimibe and Ffbicvi-agp-mkh reductase inhibitors Hospital Course Patient was admitted [...] is performed under the ED CLIA certificate #[id number]. Nutrition Screen Issues Requiring Follow-Up none Outpatient Follow-Up No future appointments. Test Results Pending At Discharge Vasile Madera MD [facility] 30on 11-17-2023 30 The patient is Moder ately Stable - Low risk of patient condition declining or worsening The patient's goals for the shift include pain control The clinical goals for the shift include comfort Problem: Pain - Adult Goal: Verbalizes/displays adequate comfort level or baseline comfort level Outcome: Progressing Problem: Safety - Adult Goal: Free from fall injury Outcome: Progressing Normal [facility] HPon 11-17-2023 HP H&P reviewed. The santiago contreras was examined and there are no changes to the H&P. Bilateral lumbar decompression - for synovial cyst and for lateral recess stenosis. Vasile Madera MD [facility] OPNOTEon 11-17-2023 OPNOTE Date: 11/17/2023 Loca tion: [facility] Name: Yesenia Broussard, : 1945, Diagnosis Pre-op Diagnosis * Synovial cyst of lumbar facet joint [M71.38] * Lumbar stenosis with neurogenic claudication [M48.062] Post-op Diagnosis * Synovial cyst of lumbar facet joint [M71.38] * Lumbar stenosis with neurogenic claudication [M48.062] Procedures L3-L4 Synovial Cyst Resection, Left L4-L5 Lateral Recess Decompression, and 88709 - ID LANDEROS FACETECTOMY & FORAMOTOMY 1 VRT SGM LUMBAR L5 Foraminal Decompression 30936 - ID LANDEROS FACETECTOMY&FORAMOT 1 VRT SGM EA ADDL SGM ID LANDEROS BX/EXC ISPI JUAN JOSE IDRL XMED LUMBAR [92108] Right side L3 hemilaminectomy and resection of [...] Drains: * None in log * Staff: Academic Support Director: Kd Lagos RN Relief Scrub: Silke Henry CST Scrub Person: Breanne White CST Box Order Person: Bernie Jimenes RN Indications: Yesenia Broussard is [...] scrubbed for the entire procedure. Vasile Madera [facility] OPNOTE L3-L4 Synovial Cyst Resection, Left L4-L5 Lateral Recess Decompression, and (B), L5 Foraminal Decompression (R) Operative Note Date: 11/17/2023 Location: [facility] Name: Yesenia Broussard, : 1945, Diagnosis Pre-op Diagnosis * Synovial cyst of lumbar facet joint [M71.38] * Lumbar stenosis with neurogenic claudication [M48.062] Post-op Diagnosis * Synovial cyst of lumbar facet joint [M71.38] * Lumbar stenosis with neurogenic claudication [M48.062] Procedures L3-L4 Synovial Cyst Resection, Left L4-L5 Lateral Recess Decompression, and 77735 - ID LANDEROS FACETECTOMY & FORAMOTOMY 1 VRT SGM LUMBAR L5 Foraminal Decompression 07357 - ID LANDEROS FACETECTOMY&FORAMOT 1 VRT SGM EA ADDL SGM ID LANDEROS BX/EXC ISPI JUAN JOSE IDRL XMED LUMBAR [49479] Right side L3 hemilaminectomy and resection of [...] Drains: * None in log * Staff: Academic Support Director: Kd Lagos RN Relief Scrub: Silke Henry CST Scrub Person: Breanne White BILLING CHECKER Box Order Person: Bernie Jimenes RN Indications: Yesenia Broussard is [...] PACU - hemodynamically stable. Condition: stable Vasile Madera Service: Neurosurgery Attending: Vasile Madera MD Date: [...] divided with Bovie (more content not included)... Normal [facility] POCT GLUCOSE METER UNSOLICIT ED RESULTSon 11-17-2023 Glucose [Mass/Vol] 80 mg/dL Normal 70-105 [facility] Comment on above: Order Comment: Waive d Testing in the ED is performed under the ED CLIA certificate #[id number]. Result Comment: epaw low Performed By: #### L [id number] #### [facility] ([facility]) [address] [place] [address] Orders Onlyon 11-13-2023 Orders Only [id number] Dianne Broussard ld 1945 M Date Provider Department Center 11/13/2023 ErnaCarminaIMAN SANDERS [facility] Family History Problem Relation Age of Onset Hypertension Mother Diabetes Father Family Status - Relation Status Age at Mother Father Normal [facility] Orders Onlyon 11-10-2023 Orders Only [id number] Dianne Broussard ld 1945 M Date Provider Department Center 11/10/2023 TOM AGUIAR [facility] Family History Problem Relation Age of Onset Hypertension Mother Diabetes Father Family Status - Relation Status Age at Mother Father Normal [facility] [id number] 11-06-2023 [id number] SURGERY DATE:11/16 Medications to take Morning of [...] THE FOLLOWING ARE NOT AVAILABLE: An adult limo driver over the age of 18, that [...] lenses. Do not wear perfume, make-up, nail yemeni, or lotions on the day of your [...] need to make any changes, please call [phone]. Notify your surgeon if you develop any illness such as a cold, cough, fever, sore throat or vomiting between now and your surgery. Thank you for entrusting us with your care. [facility] Surgical Services Team Normal [facility] APTTon 11-05-2023 ACTIVATED PARTIAL THROMBOPLASTIN TIME IN PPP BY COAGULATION ASSAY 24.3 Seconds Low 25.0-35.0 [facility] Comment on above: Result Comment: Clin ical significance of the APTT is questionable in the presence of heparin. Performed By: #### L [id number] #### [facility] ([facility]) [address] [place] [address] BASIC METABOLIC PANELon 06 Anion gap [Moles/Vol] 14 mmol/L Normal 7-20 [facility] Comment on above: Performed By: #### L [id number] #### [facility] ([facility]) [address] [place] [address] Calcium [Mass/Vol] 9.6 mg/dL Normal 8.6-10.3 [facility] Comment on above: Performed By: #### L [id number] #### [facility] ([facility]) [address] [place] [address] Chloride [Moles/Vol] 105 mmol/L Normal 98-107 [facility] Comment on above: Performed By: #### L [id number] #### [facility] ([facility]) [address] [place] [address] CO2 [Moles/Vol] 23 mmol/L Normal 21-31 [facility] Comment on above: Performed By: #### L [id number] #### [facility] ([facility]) [address] [place] [address] Creatinine [Mass/Vol] 1.93 mg/dL High 0.70-1.30 [facility] Comment on above: Performed By: #### L [id number] #### [facility] ([facility]) [address] [place] [address] GLOMERULAR FILTRATION RATE ML/MIN/1.73 SQ M.PREDICTED 35.0 mL/min/1.73m*2 Low >60.0 [facility] Comment on above: Result Comment: [facility]???s estimated glomerular filtration rate (eGFR) will [...] group of individuals. Performed By: #### L [id number] #### [facility] ([facility]) [address] [place] [address] Glucose [Mass/Vol] 102 mg/dL High 70-100 [facility] Comment on above: Performed By: #### L [id number] #### [facility] ([facility]) [address] [place] [address] Potassium [Moles/Vol] 4.8 mmol/L Normal 3.5-5.1 [facility] Comment on above: Performed By: #### L [id number] #### [facility] ([facility]) [address] [place] [address] Sodium [Moles/Vol] 137 mmol/L Normal 136-145 [facility] Comment on above: Performed By: #### L [id number] #### [facility] ([facility]) [address] [place] [address] Urea nitrogen [Mass/Vol] 30 mg/dL High 7-25 [facility] Comment on above: Performed By: #### L [id number] #### [facility] ([facility]) [address] [place] [address] UREA NITROGEN/CREATININE (MASS RATIO) IN SER/PLAS 15.5 Normal [facility] Comment on above: Performed By: #### L [id number] #### [facility] ([facility]) [address] [place] [address] CBC WITH AUTO DIFFERENTIALon 11-05-2023 Basophils (Bld) [#/Vol] 0.03 10*3/uL Normal 0.00-0.20 [facility] Comment on above: Performed By: #### L [id number] #### [facility] ([facility]) [address] [place] [address] Basophils/100 WBC (Bld) 0.3 % Normal 0.0-1.0 [facility] Comment on above: Performed By: #### L [id number] #### [facility] ([facility]) [address] [place] [address] Eosinophils (Bld) [#/Vol] 0.13 10*3/uL Normal 0.00-0.50 [facility] Comment on above: Performed By: #### L [id number] #### [facility] ([facility]) [address] [place] [address] Eosinophils/100 WBC (Bld) 1.3 % Normal 0.0-6.0 [facility] Comment on above: Performed By: #### L [id number] #### [facility] ([facility]) [address] [place] [address] Erythrocyte distribution width (RBC) [Ratio] 13.7 % Normal 11.5-15.0 [facility] Comment on above: Performed By: #### L [id number] #### [facility] ([facility]) [address] [place] [address] ERYTHROCYTE MEAN CORPUSCULAR HEMOGLOBIN CONCENTRATION (G/DL) BY AUTOMATED 32.0 g/dL Normal 32.0-35.0 [facility] Comment on above: Performed By: #### L [id number] #### [facility] ([facility]) [address] [place] [address] Hematocrit (Bld) [Volume fraction] 40.9 % Normal 39.0-55.0 [facility] Comment on above: Performed By: #### L [id number] #### [facility] ([facility]) [address] [place] [address] Hemoglobin (Bld) [Mass/Vol] 13.1 g/dL Normal 13.0-17.0 [facility] Comment on above: Performed By: #### L [id number] #### [facility] ([facility]) [address] [address] Immature granulocytes (Bld) [#/Vol] 0.03 10*3/uL Normal 0.00-0.20 [facility] Comment on above: Performed By: #### L [id number] #### [facility] ([facility]) [address] [place] [address] Immature granulocytes/100 WBC (Bld) 0.3 % Normal 0.0-1.0 [facility] Comment on above: Performed By: #### L [id number] #### [facility] ([facility]) [address] [place] [address] Lymphocytes (Bld) [#/Vol] 1.12 10*3/uL Low 1.20-4.00 [facility] Comment on above: Performed By: #### L [id number] #### [facility] ([facility]) [address] [place] [address] Lymphocytes/100 WBC (Bld) 11.2 % Low 20.0-45.0 [facility] Comment on above: Performed By: #### L [id number] #### [facility] ([facility]) [address] [place] [address] MCH (RBC) [Entitic mass] 29.8 pg Normal 27.0-33.0 [facility] Comment on above: Performed By: #### L [id number] #### [facility] ([facility]) [address] [place] [address] MCV (RBC) [Entitic vol] 93.2 fL Normal 82.0-98.0 [facility] Comment on above: Performed By: #### L [id number] #### [facility] ([facility]) [address] [place] [address] Monocytes (Bld) [#/Vol] 0.85 10*3/uL Normal 0.10-1.00 [facility] Comment on above: Performed By: #### L [id number] #### [facility] ([facility]) [address] [place] [address] Monocytes/100 WBC (Bld) 8.5 % Normal 5.0-12.0 [facility] Comment on above: Performed By: #### L [id number] #### [facility] ([facility]) [address] [place] [address] Neutrophils (Bld) [#/Vol] 7.85 10*3/uL High 1.60-7.60 [facility] Comment on above: Performed By: #### L [id number] #### [facility] ([facility]) [address] [place] [address] Neutrophils/100 WBC (Bld) 78.4 % High 40.0-72.0 [facility] Comment on above: Performed By: #### L [id number] #### [facility] ([facility]) [address] [place] [address] NRBC (PER 100 WBCS) BY AUTOMATED COUNT 0.0 % Normal 0 [facility] Comment on above: Performed By: #### L [id number] #### [facility] ([facility]) [address] [place] [address] PLATELETS (10*3/UL) IN BLOOD AUTOMATED COUNT 321 10*3/uL Normal 150-400 [facility] Comment on above: Performed By: #### L [id number] #### [facility] ([facility]) [address] [place] [address] RBC (Bld) [#/Vol] 4.39 10*6/uL Normal 4.20-5.70 [facility] Comment on above: Performed By: #### L [id number] #### [facility] ([facility]) [address] [place] [address] WBC (Bld) [#/Vol] 10.01 10*3/uL Normal 4.00-10.60 [facility] Comment on above: Performed By: #### L [id number] #### [facility] ([facility]) [address] [place] [address] Consulton 11-05-2023 Consult [id number] Dianne Broussard 1945 M Date Provider Department Center 11/05/2023 JOELLEN STANTON [facility] Second Fl Family History Problem Relation Age of Onset Hypertension Mother Diabetes Father Family Status - Relation Status Age at Mother Father Level of Service:67013 ID OFFICE/OUTPATIENT ESTABLISHED MOD MDM 30 MIN Reason for Visit and Comments: Pre-op Exam [[id number]] - pre op sugery 11/16 L3-4 synovial cyst resection, L4-5 left side lateral recess decompression and right side L5 foraminal decompression Normal [facility] HPon 11-05-2023 HP SUBJECTIVE: Chief complaint: [...] He saw pain management and is taking [place], which helps some. Did physical therapy in [...] vascular disease) (CMS/HCC) left leg stent Stroke ([facility]) 2012 Past Surgical History: Procedure Laterality Date [...] , Rfl: ergocalciferol (Vitamin D-2) 1.25 MG (93465 Units) capsule, Take 1,250 mcg by mouth 1 (one) time per week., Disp: , Rfl: gabapentin (Neurontin) 100 mg capsule, Take 100 mg by mouth at bedtime., Disp: , Rfl: HYDROcodone-acetaminophen (Alexandria) 7.5-325 mg tablet, TAKE 1 TABLET BY [...] Reactions Ezetimibe GI intolerance Other reaction(s): Nausea/vomiting Ngyyrdj-Uws-Voy Reductase Inhibitors Other Muscle/Joint Pain Other Reaction(s): [...] Hip flexor (more content not included)... [facility] Labon 11-05-2023 Lab [id number] Dianne Broussard 1945 Date Provider Department [place] 11/05/20232244-[facility] OPD LAB RESOURCE [facility]PD [facility] C Family History Problem Relation Age of Onset Hypertension Mother Diabetes Father Family Status - Relation Status Age at Mother Father [facility] MRSA/MSSA DNA NASALon 2023 MRSA DNA Negative Normal Negative [facility] Comment on above: Order Comment: Testi [...] preclude nasal colonization. Performed By: #### L [id number] #### [facility] (BEAKER) [address] [place] [address] MSSA DNA Negative Normal Negative [facility] Comment on above: Order Comment: Testi [...] preclude nasal colonization. Performed By: #### L [id number] #### [facility] ([facility]) [address] [place] [address] PROTIME-INRon 11-05-2023 INR IN PPP BY COAGULATION ASSAY 1.01 Normal 0.90-1.10 [facility] Comment on above: Result Comment: ACCC [...] 1995;108:[id number]-246S. Performed By: #### L [id number] #### [facility] ([facility]) [address] [place] [address] PROTHROMBIN TIME (PT) IN PPP BY COAGULATION ASSAY 13.3 Seconds Normal 12.3-14.8 [facility] Comment on above: Performed By: #### L [id number] #### [facility] ([facility]) [address] [place] [address] TYPE AND SCREENon 11-05-2023 AB SCREEN Negative Normal [facility] Comment on above: Performed By: #### L [id number] #### [facility] ([facility]) [address] [place] [address] ABO group Nom (Bld) A Normal [facility] Comment on above: Performed By: #### L [id number] #### [facility] ([facility]) [address] [place] [address] RH TYPE IN BLOOD Positive Normal [facility] Comment on above: Performed By: #### L [id number] #### [facility] ([facility]) [address] [place] [address] Lab Reportson 10-04-2023 Lab Reports [id number] [facility] Alanine aminotransferase [En zymatic activity/volume] in Serum or PlasmaOrdered By: Shaikh Dotty on 10-01-2023 ALT [Catalytic activity/Vol] 13 U/L 7-52 [facility] Albumin [Mass/volume] in Ser um or Plasma by Bromocresol green (BCG) dye binding methoOrdered By: Shaikh Dotty on 10-01-2023 Albumin BCG dye [Mass/Vol] 4.2 g/dL 3.5-5.7 [facility] Alkaline phosphatase [Enzyma tic activity/volume] in Serum or PlasmaOrdered By: Shaikh Dotty on 10-01-2023 ALP [Catalytic activity/Vol] 58 U/L 34-104 [facility] Aspartate aminotransferase [ Enzymatic activity/volume] in Serum or PlasmaOrdered By: Shaikh Dotty on 10-01-2023 AST [Catalytic activity/Vol] 13 U/L 13-39 [facility] Basophils Auto (Bld) [#/Vol] Ordered By: Shaikh Dotty on 10-01-2023 Basophils (Bld) [#/Vol] 0.0 10*3/uL 0.0-0.2 [facility] Basophils/100 WBC Auto (Bld) Ordered By: Shaikh Dotty on 10-01-2023 Basophils/100 WBC (Bld) 0.4 % . [facility] Bilirubin.total [Mass/volume ] in Serum or PlasmaOrdered By: Shaikh Dotty on 10-01-2023 Bilirubin [Mass/Vol] 0.3 mg/dL 0.3-1.0 [facility] Calcium [Mass/volume] in Ser um or PlasmaOrdered By: Shaikh Dotty on 10-01-2023 Calcium [Mass/Vol] 9.4 mg/dL 8.6-10.3 [facility] Carbon dioxide, total [Moles /volume] in Serum or PlasmaOrdered By: Shaikh Dotty on 10-01-2023 CO2 [Moles/Vol] 27.0 mmol/L 21.0-31.0 [facility] Chloride [Moles/volume] in S jaime or PlasmaOrdered By: Shaikh Dotty on 10-01-2023 Chloride [Moles/Vol] 108 mmol/L 98-107 [facility] Cholesterol [Mass/volume] in Serum or PlasmaOrdered By: Shaikh Dotty on 10-01-2023 Cholesterol [Mass/Vol] 135 mg/dL 140-200 [facility] Comment on above: Chol less than 200 m g/dl low riskChol 201-239 mg/dl borderline riskChol 240 mg/dl and greater high risk Cholesterol in LDL Calc [Mas s/Vol]Ordered By: Shaikh Dotty on 10-01-2023 Cholesterol in LDL [Mass/Vol] 81 mg/dL 0-100 [facility] Comment on above: LDL ATP III CLASSIFI CATIONLDL less than 100 mg/dL OptimalLDL 100-129 mg/dL Near or above optimalLDL 130-159 mg/dL Borderline highLDL 160-189 mg/dL HighLDL greater than 189 mg/dL Very high Cholesterol in VLDL Calc [Ma ss/Vol]Ordered By: Shaikh Dotty on 10-01-2023 Cholesterol in VLDL [Mass/Vol] 16 mg/dL [facility] Creatinine [Mass/volume] in Serum or PlasmaOrdered By: Shaikh Dotty on 10-01-2023 Creatinine [Mass/Vol] 1.89 mg/dL 0.70-1.30 [facility] Creatinine [Mass/volume] in UrineOrdered By: Shaikh Dotty on 10-01-2023 Creatinine (U) [Mass/Vol] 164.0 mg/dL [facility] Comment on above: No reference range e stablished Eosinophils Auto (Bld) [#/Vo l]Ordered By: Shaikh Dotty on 10-01-2023 Eosinophils (Bld) [#/Vol] 0.2 10*3/uL 0.0-0.45 [facility] Eosinophils/100 WBC Auto (Bl d)Ordered By: Shaikh Dotty on 10-01-2023 Eosinophils/100 WBC (Bld) 2.7 % . [facility] Erythrocyte distribution wid th Auto (RBC) [Ratio]Ordered By: Shaikh Dotty on 10-01-2023 Erythrocyte distribution width (RBC) [Ratio] 14.9 % 12.0-14.8 [facility] Globulin Calc (S) [Mass/Vol] Ordered By: Shaikh Dotty on 10-01-2023 Globulin (S) [Mass/Vol] 2.5 g/dL [facility] Glucose [Mass/volume] in Ser um or PlasmaOrdered By: Shaikh Dotty on 10-01-2023 Glucose [Mass/Vol] 115 mg/dL 70-100 [facility] Comment on above: ADA recommended refe rence rangeRandom Glucose Reference Range is dependent on time and content of last meal. Glucose of more than 200 mg/dL in a nonstressed, ambulatory subject supports the diagnosis of Diabetes Mellitus. Glucose mean value [Mass/vol ume] in Blood Estimated from glycated hemoglobinOrdered By: Shaikh Dotty on 10-01-2023 Average glucose Estimated from glycated hemoglobin (Bld) [Mass/Vol] 128 mg/dL [facility] Hematocrit Auto (Bld) [Volum e fraction]Ordered By: Shaikh Dotty on 10-01-2023 Hematocrit (Bld) [Volume fraction] 37.2 % 38.8-50.0 [facility] Hemoglobin A1c percentageOrd ered By: Shaikh Dotty on 10-01-2023 HbA1c (Bld) [Mass fraction] 6.1 % 4.3-5.6 [facility] Comment on above: Increased risk for d iabetes: 5.7 - 6.4diabetes: >6.4glycemic control for adults with diabetes: <7.0 Hemoglobin [Mass/volume] in BloodOrdered By: Shaikh Dotty on 10-01-2023 Hemoglobin (Bld) [Mass/Vol] 12.3 g/dL 13.0-17.0 [facility] Leukocytes [#/volume] correc diana for nucleated erythrocytes in Blood by Automated counOrdered By: Shaikh Dotty on 10-01-2023 WBC corrected for nucl RBC Auto (Bld) [#/Vol] 8.3 10*3/uL 4.1-10.5 [facility] Lymphocytes Auto (Bld) [#/Vo l]Ordered By: Shaikh oDtty on 10-01-2023 Lymphocytes (Bld) [#/Vol] 1.3 10*3/uL 1.00-4.8 [facility] Lymphocytes/100 WBC Auto (Bl d)Ordered By: Shaikh Dotty on 10-01-2023 Lymphocytes/100 WBC (Bld) 16.1 % . [facility] MCH Auto (RBC) [Entitic mass ]Ordered By: Shaikh Dotty on 10-01-2023 MCH (RBC) [Entitic mass] 30.5 pg 27.5-35.2 [facility] MCHC Auto (RBC) [Mass/Vol]Or dered By: Shaikh Dotty on 10-01-2023 MCHC (RBC) [Mass/Vol] 33.1 g/dL 32.5-35.6 [facility] MCV Auto (RBC) [Entitic vol] Ordered By: Shaikh Dotty on 10-01-2023 MCV (RBC) [Entitic vol] 92.2 fL 83.5-101 [facility] Monocytes Auto (Bld) [#/Vol] Ordered By: Shaikh Dotty on 10-01-2023 Monocytes (Bld) [#/Vol] 0.6 10*3/uL 0.0-0.8 [facility] Monocytes/100 WBC Auto (Bld) Ordered By: Shaikh Dotty on 10-01-2023 Monocytes/100 WBC (Bld) 7.6 % . [facility] Neutrophils Auto (Bld) [#/Vo l]Ordered By: Shaikh Dotty on 10-01-2023 Neutrophils (Bld) [#/Vol] 6.1 10*3/uL 1.8-7.7 [facility] Neutrophils/100 WBC Auto (Bl d)Ordered By: Shaikh Dotty on 10-01-2023 Neutrophils/100 WBC (Bld) 73.2 % . [facility] No Panel InformationOrdered By: Shaikh Dotty on 10-01-2023 Estimated GFR (CKD-EPI) 35.887 mL/Min [facility] Creatinine Clearance (Chem N/A [facility] Nucleated erythrocytes [Pres ence] in Blood by Automated countOrdered By: Shaikh Dotty on 10-01-2023 Nucleated RBC Auto Ql (Bld) 0.1 /100{WBC} 0-0.5 [facility] Orders Onlyon 10-01-2023 Orders Only [id number] Dianne Broussard ld 1945 M Date Provider Department Center 10/01/2023 DONOVAN M[place] ONC DCC Family History Problem Relation Age of Onset Hypertension Mother Diabetes Father Family Status - Relation Status Age at Mother Father [facility] Platelet mean volume Auto (B ld) [Entitic vol]Ordered By: Shaikh Dotty on 10-01-2023 Platelet mean volume (Bld) [Entitic vol] 8.7 fL 6.6-10.1 [facility] Platelets Auto (Bld) [#/Vol] Ordered By: Shaikh Dotty on 10-01-2023 Platelets (Bld) [#/Vol] 270 10*3/uL 150-450 [facility] Potassium [Moles/volume] in Serum or PlasmaOrdered By: Shaikh Dotty on 10-01-2023 Potassium [Moles/Vol] 4.9 mmol/L 3.5-5.1 [facility] Prostate specific Ag [Mass/v olume] in Serum or PlasmaOrdered By: Barbara Johnston on 10-01-2023 Prostate specific Ag [Mass/Vol] 0.420 ng/mL 0.000-4.00 0 [facility] Comment on above: Serial tumor marker results determined by assays using different manufacturers or methods may not be comparable.[facility] 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 Protein [Mass/volume] in Ser um or PlasmaOrdered By: Shaikh Dotty on 10-01-2023 Protein [Mass/Vol] 6.7 g/dL 6.4-8.9 [facility] Protein [Mass/volume] in Uri neOrdered By: Shaikh Dotty on 10-01-2023 Protein (U) [Mass/Vol] 124 mg/dL 0-9 [facility] RBC Auto (Bld) [#/Vol]Ordere d By: Shaikh Dotty on 10-01-2023 RBC (Bld) [#/Vol] 4.04 10*6/uL 3.90-5.60 [facility] Serum or plasma albumin/glob ulin mass ratioOrdered By: Shaikh Dotty on 10-01-2023 Albumin/Globulin [Mass ratio] 1.7 {ratio} [facility] Serum or plasma anion gap de terminationOrdered By: Shaikh Dotty on 10-01-2023 Anion gap [Moles/Vol] 9.9 mmol/L 6.0-15.0 [facility] Serum or plasma high density lipoprotein (HDL) cholesterol measurementOrdered By: Shaikh Dotty on 10-01-2023 Cholesterol in HDL [Mass/Vol] 38 mg/dL 23-92 [facility] Comment on above: HDL CHOL ATP-III CLA SSIFICATION Cardiovascular RiskHDL > or equal to 60 mg/dL LOWHDL < 40 mg/dL HIGH Serum or plasma total choles terol/high density lipoprotein (HDL) cholesterol mass ratOrdered By: Shaikh Dotty on 10-01-2023 Cholesterol.total/Chol esterol in HDL [Mass ratio] 3.6 {ratio} <5.0 [facility] Sodium [Moles/volume] in Ser um or PlasmaOrdered By: Shaikh Dotty on 10-01-2023 Sodium [Moles/Vol] 140 mmol/L 136-145 [facility] Thyrotropin [Units/volume] i n Serum or PlasmaOrdered By: Shaikh Dotty on 10-01-2023 TSH Qn 1.61 m[IU]/L 0.45-5.33 [facility] Triglyceride [Mass/volume] i n Serum or PlasmaOrdered By: Shaikh Dotty on 10-01-2023 Triglyceride [Mass/Vol] 80 mg/dL 0-149 [facility] Comment on above: TRIG ATP III CLASSIF ICATIONTRIG less than 150 mg/dL NormalTRIG 150-199 mg/dL Borderline highTRIG 200-500 mg/dL High TRIG greater than 500 mg/dL Very highStandard traceable to the Center for Disease Conrtrol and Prevention (CDC) test method. Urea nitrogen [Mass/volume] in Serum or PlasmaOrdered By: Shaikh Dotty on 10-01-2023 Urea nitrogen [Mass/Vol] 33 mg/dL 7-25 [facility] WBC Auto (Bld) [#/Vol]Ordere d By: Shaikh Dotty on 10-01-2023 WBC (Bld) [#/Vol] 8.3 10*3/uL 4.1-10.5 [facility] Ambulatory Visit Summaryon 0 09-18-2023 Ambulatory Visit [...] prescribing physician if questions or concerns acetaminophen-hydrocodone (Alexand[place] 5/325 Tab) amlodipine (amLODIPine 5 mg Tab) [...] Following Appointments Follow Up with PRESTON MAK, Barbara Warner, URL When: Where: [address] [place] [address]- Medications What How Much When Instructions Unchanged tadalafil (Cialis 20 mg Tab) 1 Tablets By Mouth As Directed Do not exceed 20mg within 48 hours. Unchanged acetaminophen-hydrocodone (Alexandria 5/ 325 Tab) By Mouth Every 6 [...] bladder diary (more content not included)... [facility] Patient Educationon 09-18-19 Patient Education Urology Urinary [...] keep your urine pale yellow. ? Take mtgn-akq-toesljl or prescription medicines. ? Eat foods that are high in fiber, such as beans, whole grains, and fresh fruits and vegetables. ? Limit foods that are high in fat and processed sugars, such as fried or sweet foods. General instructions ? Take gvou-ndy-sxwrcsl and prescription medicines only as told by [...] muscles that help control urination. ? Take xjzl-clg-gxpbjfx and prescription medicines only as told by your health care provider. ? Contact a health care provider if your symptoms do not improve or get worse. This information is not intended to replace advice given to you by your health care provider. Make sure you discuss any questions you have with your health care provider. Document Revised: 12/21/2020 Document Reviewed: 12/21/2020 [employer] Patient Education ? 2022 [employer]. [facility] Urology Office/Clinic Noteon 09-18-2023 Urology Office/Clinic Note [...] Information PRESTON MAK, Barbara Warner, URL [address] [place] [address]- Additional Instructions: 6 mos w/ PSA Patient Education Urinary Frequency, Adult I, Tabitha Saenz, personally scribed for Dr. Johnston on 09/18/2023 11:55:58. . Documentation recorded by the scribeTabitha, accurately reflects the services(s) I performed and decisions made by me. Authenticated by Dr. Johnston on 09/18/2023 11:59:13. Problem List/Past Medical History Ongoing Anxiety BPH with (more content not included)... [facility] Comment on above: Result Comment: Elec tronically Signed By: Barbara JOHNSTON MD\.br\Date and Time Signed: 09/18/23 11:59 EDT\.br\Electronically Co-Signed By: Tabitha Saenz\.br\Date and Time Co-Signed: 09/18/23 11:56 EDT Orders Onlyon 09-03-2023 Orders Only [id number] BroussardDianne mandeep 1945 M Date Provider Department Center 09/03/2023 [id number], HISTORICAL Renees [facility] Family History Problem Relation Age of Onset Hypertension Mother Diabetes Father Family Status - Relation Status Age at Mother Father [facility] Office Visiton 09-02-2023 Follow-up visit [id number] BoboDexterlonny kaufman 1945 M Date Provider Department Center 09/02/2023 426-VASILE MADERA [facility] ONC [facility] Family History Problem Relation Age of Onset Hypertension Mother Diabetes Father Family Status - Relation Status Age at Mother Father Level of Service:[id number] ID OFFICE/OUTPATIENT NEW MODERATE MDM 45 MINUTES Reason for Visit and Comments: Consult [484] - Low back pain consult [facility] Orders Onlyon 08-28-2023 Orders Only [id number] BoboDianne ld 1945 M Date Provider Department Center 08/28/2023 VASILE DOMINGUEZ [facility] ONC DCC No family history on file [facility] ECG 12 Leadon 08-18-2023 Normal sinus rhythm, right bundle branch block and left anterior fascicular block consistent with bifascicular block, abnormal ECG [facility] Work Phone: N Urineon 07-11-2023 Bacteria identified Cx Nom (U) [...] Locations R1: This test was performed at: [facility], [address] [place] [address], [facility]- , , [facility] Comment on above: Performed By: #### 2 [id number] ####[facility] [address] [place] [address] Consultation Noteon 07-08-19 Consultation Note [id number]#1.00TIFF [facility] Lab Reportson 07-08-2023 Lab Reports [id number]#1.00TIFF [facility] Patient Educationon 07-07-19 24 Patient Education [...] keep your urine pale yellow. ? Take nslq-ggz-enrwffw or prescription medicines. ? Eat foods that are high in fiber, such as beans, whole grains, and fresh fruits and vegetables. ? Limit foods that are high in fat and processed sugars, such as fried or sweet foods. General instructions ? Take pfpo-zke-vqftlyk and prescription medicines only as told by [...] muscles that help control urination. ? Take tjhi-aft-wkydnfi and prescription medicines only as told by your health care provider. ? Contact a health care provider if your symptoms do not improve or get worse. This information is not intended to replace advice given to you by your health care provider. Make sure you discuss any questions you have with your health care provider. Document Revised: 12/21/2020 Document Reviewed: 12/21/2020 [employer] Patient Education ? 2022 [employer]. Lonny Tristan [facility] Urology Office/Clinic Noteon 07-07-2023 Urology Office/Clinic [...] Contact Information PRESTON MAK, Barbara Warner, URL [address] [place] [address]- Additional Instructions: 3 mos Patient Education Urinary Frequency, Adult Documentation recorded by the scribe Tabitha Saenz accurately reflects the services(s) I performed and decisions made (more content not included)... [facility] Comment on above: Result Comment: Elec tronically Signed By: CLAIRE JAMES PA-C\.br\Date and Time Signed: 07/07/23 10:08 EST\.br\Electronically Co-Signed By: Tabitha Saenz.br\Date and Time Co-Signed: 07/07/23 09:50 EST NUCLEAR STRESS TESTon 2023 NUCLEAR STRESS TEST Interpreted By: Inge Dickerson and Beal Gina STUDY: MYOCARDIAL PERFUSION STRESS TEST WITH LEXISCAN Performing facility: [facility], [address] [place] [address], [address], [place] [address] [facility] Provider: Syl[facility] Grayson DO[facility] PCP: Dr. Agus STORM Supervising provider: Inge Dickerson MD INDICATION: HTN, Bilateral Carotid, Chest Pain HISTORY: Gender: M; Age: 77 y/o ; Height: HT 177.8 cm cm; Weight: WT 89.812 kg kg. CAD; High Cholesterol; Abnormal EKG; RBBB Previous SC; Family HX CAD; Chest Pain; COPD; PAD, CVA, Carotid Disease, CKD Currently smoking. Cardiac catheterization. PTCA 1990s RCA. COMPARISON: No comparison. ACCESSION NUMBER(S): [id number] ORDERING CLINICIAN: CHAIM GRAYSON TECHNIQUE: ONE DAY [...] Inge Dickerson 06/19/2023 11:20 AM Dictation workstation: [id number] [facility] CNOVon 06-12-2023 CNOV Office Visit (SPSLUH ) -- YESENIA BROUSSARD ([id number]) 1945 M Date Time Provider Department 06/12/23 11:00 AM [facility] During your visit today, we recorded the [...] heat Medications: See medication reconciliation list in [facility] MEDICATIONS: Hydrocodone, Gabapentin 2018 back surgery with [...] pleasant 77-year-old male who recently moved from [place] to [place]. He reports longstanding history of back and [...] law suit/legal clai (more content not included)... [facility] ECG 12 Leadon 06-04-2023 Sinus rhythm, right bundle branch block, left axis deviation, abnormal ECG [facility] Work Phone: Lab Reportson 05-26-2023 Lab Reports [id number]#1.00TIFF [facility] Lab Reportson 05-18-2023 Lab Reports [id number]#1.00TIFF [facility] Physician Orderon 05-06-2023 Physician Order [id number]#1.00TIFF [facility] C Urineon 04-25-2023 Bacteria identified Cx [...] Locations R1: This test was performed at: [facility], [address] [place] [address], [address] , , [facility] Comment on above: Performed By: #### 2 [id number] ####[facility] [address] [place] [address] [place] 04-22-2023 Screens [id number]#1.00TIFF [facility] Screens [id number]#1.00TIFF [facility] Ambulatory Visit Summaryon 1 06-21-2022 Ambulatory Visit Summary YESENIA BROUSSARD :1945 Visit Date:04/21/2023 Ambulatory Visit Instructions Your Diagnosis Nocturia UTI symptoms Erectile dysfunction Prostate cancer BPH with urinary obstruction Tests Performed Urnls Dip Stick Auto w/o Microscopy POC [id number] Your Care Team Attending Physician - CLAIRE JAMES PA-C Primary Care Physician - SHAIK STORM MDH This Is Your Medications List oxybutynin (oxybutynin 5 mg Tab) Contact prescribing physician if questions or concerns acetaminophen-hydrocodone ([place]and[place] 5/325 Tab) amlodipine (amLODIPine 5 mg Tab) [...] CLAIRE JAMES PA-C Where: [facility] Patient Educationon 04-21-20 Patient Education [...] these instructions at home: Medicines ? Take zdwb-obi-lomtvyq and prescription medicines only as told by [...] include cig (more content not included)... Normal Tristan [facility] Urology Office/Clinic Noteon 04-21-2023 Urology Office/Clinic Note [...] office.*No recent rad onc note found on [employer] or [employer] BPH *No BPH meds at this time* [...] 0.05mg qhs. Rx sent to [facility] [place]. -Check electrolytes in 1 wk after starting [...] 50mg prn. Rx sent to [facility] [place]. 4. Prostate cancer (C61: Malignant neoplasm of [...] obstruction (N4 (more content not included)... [facility] Comment on above: Result Comment: Elec tronically Signed By: CLAIRE JAMES PA-C\.br\Date and Time Signed: 04/21/23 09:33 EST\.br\Electronically Co-Signed By: Rosario Byrne\.br\Date and Time Co-Signed: 04/21/23 09:14 EST Creatinine [Mass/volume] in Serum or PlasmaOrdered By: Jose Martin Mchugh on 03-23-2023 Creatinine [Mass/Vol] 2.03 mg/dL 0.70-1.30 [facility] No Panel InformationOrdered By: Jose Martin Mchugh on 03-23-2023 Estimated GFR (CKD-EPI) 33.144 mL/Min [facility] Creatinine Clearance (Chem 34.29 [facility] Urea nitrogen [Mass/volume] in Serum or PlasmaOrdered By: Jose Martin Mchugh on 03-23-2023 Urea nitrogen [Mass/Vol] 35 mg/dL 7 [facility] Albumin [Mass/volume] in Ser um or Plasma by Bromocresol green (BCG) dye binding methoOrdered By: Theo Thakkar on 03-09-2023 Albumin BCG dye [Mass/Vol] 4.1 g/dL 3.5-5.7 [facility] Automated erythrocytes count in urine sediment (number/area)Ordered By: Theo Thakkar on 03-09-2023 RBC Auto (Urine sed) [#/Area] 5-9 [HPF] 0-4 [facility] Automated leukocytes count i n urine sediment (number/area)Ordered By: Theo Thakkar on 03-09-2023 WBC Auto (Urine sed) [#/Area] Innumerable [HPF] 0-4 [facility] Bilirubin Test strip Ql (U)O rdered By: Theo Thakkar on 03-09-2023 Bilirubin Ql (U) Negative Negative [facility] Calcium [Mass/volume] in Ser um or PlasmaOrdered By: Theo Thakkar on 03-09-2023 Calcium [Mass/Vol] 9.3 mg/dL 8.6-10.3 [facility] Carbon dioxide, total [Moles /volume] in Serum or PlasmaOrdered By: Theo Thakkar on 03-09-2023 CO2 [Moles/Vol] 26.4 mmol/L 21.0-31.0 [facility] Chloride [Moles/volume] in S jaime or PlasmaOrdered By: Theo Thakkar on 03-09-2023 Chloride [Moles/Vol] 104 mmol/L 98-107 [facility] Color Auto (U)Ordered By: Ab bola Thakkar on 03-09-2023 Color (U) Yellow Yellow [facility] Creatinine [Mass/volume] in Serum or PlasmaOrdered By: Theo Thakkar on 03-09-2023 Creatinine [Mass/Vol] 1.83 mg/dL 0.70-1.30 [facility] Creatinine [Mass/volume] in UrineOrdered By: Theo Thakkar on 03-09-2023 Creatinine (U) [Mass/Vol] 162.0 mg/dL 14.0-26.0 [facility] Glucose [Mass/volume] in Ser um or PlasmaOrdered By: Theo Thakkar on 03-09-2023 Glucose [Mass/Vol] 126 mg/dL 70-100 [facility] Comment on above: ADA recommended refe rence rangeRandom Glucose Reference Range is dependent on time and content of last meal. Glucose of more than 200 mg/dL in a nonstressed, ambulatory subject supports the diagnosis of Diabetes Mellitus. Ketones Auto test strip (U) [Mass/Vol]Ordered By: Theo Thakkar on 03-09-2023 Ketones (U) [Mass/Vol] Negative Negative [facility] Laboratory - UrinalysisOrder ed By: Theo Thakkar on 03-09-2023 Hyaline casts LM Ql (Urine sed) None seen [LPF] 0-8 [facility] Magnesium [Mass/volume] in S jaime or PlasmaOrdered By: Theo Thakkar on 03-09-2023 Magnesium [Mass/Vol] 2.2 mg/dL 1.9-2.7 [facility] Nitrite Test strip Ql (U)Ord ered By: Theo Thakkar on 03-09-2023 Nitrite Ql (U) Negative Negative [facility] No Panel InformationOrdered By: Theo Thakkar on 03-09-2023 Estimated GFR (CKD-EPI) 37.537 mL/Min [facility] Creatinine Clearance (Chem N/A [facility] Parathyrin.intact [Mass/volu me] in Serum or PlasmaOrdered By: Theo Thakkar on 03-09-2023 Parathyrin.intact [Mass/Vol] 128.0 pg/mL 12-88 [facility] Phosphate [Mass/volume] in S jaime or PlasmaOrdered By: Theo Thakkar on 03-09-2023 Phosphate [Mass/Vol] 4.1 mg/dL 3.7-7.2 [facility] Potassium [Moles/volume] in Serum or PlasmaOrdered By: Theo Thakkar on 03-09-2023 Potassium [Moles/Vol] 4.7 mmol/L 3.5-5.1 [facility] Protein Auto test strip (U) [Mass/Vol]Ordered By: Theo Thakkar on 03-09-2023 Protein (U) [Mass/Vol] 100 mg/dL Negative Fi [facility] Protein [Mass/volume] in Uri neOrdered By: Theo Thakkar on 03-09-2023 Protein (U) [Mass/Vol] 104 mg/dL 0-9 [facility] Serum or plasma anion gap de terminationOrdered By: Theo Thakkar on 03-09-2023 Anion gap [Moles/Vol] 10.3 mmol/L 6.0-15.0 [facility] Sodium [Moles/volume] in Ser um or PlasmaOrdered By: Theo Thakkar on 03-09-2023 Sodium [Moles/Vol] 136 mmol/L 136-145 [facility] Specific gravity Auto test s trip (U) [Rel density]Ordered By: Theo Thakkar on 03-09-2023 Specific gravity (U) [Rel density] 1.018 1.001-1.03 0 [facility] Squamous epithelial cells de tection in urine sediment by light microscopyOrdered By: Theo Thakkar on 03-09-2023 Epithelial cells.squamous LM Ql (Urine sed) None seen [HPF] 0-2 [facility] Urate [Mass/volume] in Serum or PlasmaOrdered By: Theo Thakkar on 03-09-2023 Urate [Mass/Vol] 7.1 mg/dL 4.4-7.6 [facility] [place] [facility] Urea nitrogen [Mass/volume] in Serum or PlasmaOrdered By: Theo Thakkar on 03-09-2023 Urea nitrogen [Mass/Vol] 30 mg/dL 7-25 [facility] Urine bacteria detection by automated methodOrdered By: Theo Thakkar on 03-09-2023 Bacteria Auto Ql (U) None seen None Seen [facility] Urine clarity by refractomet ry automatedOrdered By: Theo Thakkar on 03-09-2023 Clarity Refractometry automated (U) Cloudy Clear [facility] Urine culture routineOrdered By: Theo Thakkar on 03-09-2023 Bacteria identified Cx Nom (U) Staphylococcus aureus [facility] Bacteria identified Cx Nom (U) Staphylococcus aureus [facility] Urine glucose measurement by automated test strip (mass/volume)Ordered By: Theo Thakkar on 03-09-2023 Glucose Auto test strip (U) [Mass/Vol] Normal mg/dL Normal [facility] Urine hemoglobin detection b y automated test stripOrdered By: Theo Thakkra on 03-09-2023 Hemoglobin Auto test strip Ql (U) 1+ Negative [facility] Urine leukocyte esterase det ection by automated test stripOrdered By: Theo Thakkar on 03-09-2023 Leukocyte esterase Auto test strip Ql (U) 4+ Negative [facility] Urine protein/creatinine rat ioOrdered By: Theo Thakkar on 03-09-2023 Protein/Creatinine (U) [Ratio] 642 mg/g{Cre} 0-200 [facility] Urobilinogen Auto test strip (U) [Mass/Vol]Ordered By: Theo Thakkar on 03-09-2023 Urobilinogen (U) [Mass/Vol] Normal mg/dL Normal [facility] Vitamin D+Metabolites [Mass/ volume] in Serum or PlasmaOrdered By: Theo Thakkar on 03-09-2023 Vitamin D+Metabolites [Mass/Vol] 18.9 ng/mL 30-100 [facility] Comment on above: VITAMIN D STATUS 25( [place])VITAMIN D RANGE (ng/mL) Deficient <20 Insufficient 20 to <30Sufficient 30 to 100Reference: Grecia MF,Wayne NC, John VILLEGAS, et al. Evaluation,treatment, and prevention of vitamin D deficiency; an Endocrine Society clinical practice guideline. JCEM. 2010; 96(7):1911-30. pH Auto test strip (U)Ordere d By: Theo Thakkar on 03-09-2023 pH (U) 5.5 [pH] 5.0-9.0 [facility] Alanine aminotransferase [En zymatic activity/volume] in Serum or PlasmaOrdered By: Shaikh Dotty on 01-09-2023 ALT [Catalytic activity/Vol] 12 U/L 7-52 [facility] Albumin [Mass/volume] in Ser um or Plasma by Bromocresol green (BCG) dye binding methoOrdered By: Shaikh Dotty on 01-09-2023 Albumin BCG dye [Mass/Vol] 4.2 g/dL 3.5-5.7 [facility] Alkaline phosphatase [Enzyma tic activity/volume] in Serum or PlasmaOrdered By: Shaikh Dotty on 01-09-2023 ALP [Catalytic activity/Vol] 66 U/L 34-104 [facility] Aspartate aminotransferase [ Enzymatic activity/volume] in Serum or PlasmaOrdered By: Shaikh Dotty on 01-09-2023 AST [Catalytic activity/Vol] 13 U/L 13-39 [facility] Basophils Auto (Bld) [#/Vol] Ordered By: Shaikh Dotty on 01-09-2023 Basophils (Bld) [#/Vol] 0.0 10*3/uL 0.0-0.2 [facility] Basophils/100 WBC Auto (Bld) Ordered By: Shaikh Dotty on 01-09-2023 Basophils/100 WBC (Bld) 0.5 % . [facility] Bilirubin.total [Mass/volume ] in Serum or PlasmaOrdered By: Shaikh Dotty on 01-09-2023 Bilirubin [Mass/Vol] 0.3 mg/dL 0.3-1.0 [facility] Calcium [Mass/volume] in Ser um or PlasmaOrdered By: Shaikh Dotty on 01-09-2023 Calcium [Mass/Vol] 9.2 mg/dL 8.6-10.3 [facility] Carbon dioxide, total [Moles /volume] in Serum or PlasmaOrdered By: Shaikh Dotty on 01-09-2023 CO2 [Moles/Vol] 26.1 mmol/L 21.0-31.0 [facility] [place] [facility] Chloride [Moles/volume] in S jaime or PlasmaOrdered By: Shaikh Dotty on 01-09-2023 Chloride [Moles/Vol] 109 mmol/L 98-107 [facility] Cholesterol [Mass/volume] in Serum or PlasmaOrdered By: Shaikh Dotty on 01-09-2023 Cholesterol [Mass/Vol] 178 mg/dL 140-200 [facility] Comment on above: Chol less than 200 m g/dl low riskChol 201-239 mg/dl borderline riskChol 240 mg/dl and greater high risk Cholesterol in LDL Calc [Mas s/Vol]Ordered By: Shaikh Dotty on 01-09-2023 Cholesterol in LDL [Mass/Vol] 115 mg/dL 0-100 [facility] Comment on above: LDL ATP III CLASSIFI CATIONLDL less than 100 mg/dL OptimalLDL 100-129 mg/dL Near or above optimalLDL 130-159 mg/dL Borderline highLDL 160-189 mg/dL HighLDL greater than 189 mg/dL Very high Cholesterol in VLDL Calc [Ma ss/Vol]Ordered By: Shaikh Dotty on 01-09-2023 Cholesterol in VLDL [Mass/Vol] 32 mg/dL [facility] Creatinine [Mass/volume] in Serum or PlasmaOrdered By: Shaikh Dotty on 01-09-2023 Creatinine [Mass/Vol] 1.80 mg/dL 0.70-1.30 [facility] Eosinophils Auto (Bld) [#/Vo l]Ordered By: Shaikh Dotty on 01-09-2023 Eosinophils (Bld) [#/Vol] 0.2 10*3/uL 0.0-0.45 [facility] Eosinophils/100 WBC Auto (Bl d)Ordered By: Shaikh Dotty on 01-09-2023 Eosinophils/100 WBC (Bld) 3.9 % . [facility] Erythrocyte distribution wid th Auto (RBC) [Ratio]Ordered By: Shaikh Dotty on 01-09-2023 Erythrocyte distribution width (RBC) [Ratio] 14.6 % 12.0-14.8 [facility] Globulin Calc (S) [Mass/Vol] Ordered By: Shaikh Dotty on 01-09-2023 Globulin (S) [Mass/Vol] 2.7 g/dL [facility] Glucose [Mass/volume] in Ser um or PlasmaOrdered By: Shaikh Dotty on 01-09-2023 Glucose [Mass/Vol] 114 mg/dL 70-100 [facility] Comment on above: ADA recommended refe rence rangeRandom Glucose Reference Range is dependent on time and content of last meal. Glucose of more than 200 mg/dL in a nonstressed, ambulatory subject supports the diagnosis of Diabetes Mellitus. Hematocrit Auto (Bld) [Volum e fraction]Ordered By: Shaikh Dotty on 01-09-2023 Hematocrit (Bld) [Volume fraction] 40.3 % 38.8-50.0 [facility] Hemoglobin [Mass/volume] in BloodOrdered By: Shaikh Dotty on 01-09-2023 Hemoglobin (Bld) [Mass/Vol] 13.3 g/dL 13.0-17.0 [facility] Leukocytes [#/volume] correc diana for nucleated erythrocytes in Blood by Automated counOrdered By: Shaikh Dotty on 01-09-2023 WBC corrected for nucl RBC Auto (Bld) [#/Vol] 5.6 10*3/uL 4.1-10.5 [facility] Lymphocytes Auto (Bld) [#/Vo l]Ordered By: Shaikh Dotty on 01-09-2023 Lymphocytes (Bld) [#/Vol] 1.1 10*3/uL 1.00-4.8 [facility] Lymphocytes/100 WBC Auto (Bl d)Ordered By: Shaikh Dotty on 01-09-2023 Lymphocytes/100 WBC (Bld) 19.3 % . [facility] MCH Auto (RBC) [Entitic mass ]Ordered By: Shaikh Dotty on 01-09-2023 MCH (RBC) [Entitic mass] 30.0 pg 27.5-35.2 [facility] MCHC Auto (RBC) [Mass/Vol]Or dered By: Shaikh Dotyt on 01-09-2023 MCHC (RBC) [Mass/Vol] 32.9 g/dL 32.5-35.6 [facility] MCV Auto (RBC) [Entitic vol] Ordered By: Shaikh Dotty on 01-09-2023 MCV (RBC) [Entitic vol] 91.2 fL 83.5-101 [facility] Monocytes Auto (Bld) [#/Vol] Ordered By: Shaikh Dotty on 01-09-2023 Monocytes (Bld) [#/Vol] 0.5 10*3/uL 0.0-0.8 [facility] Monocytes/100 WBC Auto (Bld) Ordered By: Shaikh Dotty on 01-09-2023 Monocytes/100 WBC (Bld) 8.7 % . [facility] Neutrophils Auto (Bld) [#/Vo l]Ordered By: Shaikh Dotty on 01-09-2023 Neutrophils (Bld) [#/Vol] 3.8 10*3/uL 1.8-7.7 [facility] Neutrophils/100 WBC Auto (Bl d)Ordered By: Shaikh Dotty on 01-09-2023 Neutrophils/100 WBC (Bld) 67.6 % . [facility] No Panel InformationOrdered By: Shaikh Dotty on 01-09-2023 Estimated GFR (CKD-EPI) 38.289 mL/Min [facility] Creatinine Clearance (Chem N/A [facility] Nucleated erythrocytes [Pres ence] in Blood by Automated countOrdered By: Shaikh Dotty on 01-09-2023 Nucleated RBC Auto Ql (Bld) 0.1 /100{WBC} 0-0.5 [facility] Platelet mean volume Auto (B ld) [Entitic vol]Ordered By: Shaikh Dotty on 01-09-2023 Platelet mean volume (Bld) [Entitic vol] 9.7 fL 6.6-10.1 [facility] Platelets Auto (Bld) [#/Vol] Ordered By: Shaikh Dotty on 01-09-2023 Platelets (Bld) [#/Vol] 173 10*3/uL 150-450 [facility] Potassium [Moles/volume] in Serum or PlasmaOrdered By: Shaikh Dotty on 01-09-2023 Potassium [Moles/Vol] 4.9 mmol/L 3.5-5.1 [facility] Protein [Mass/volume] in Ser um or PlasmaOrdered By: Shaikh Dotty on 01-09-2023 Protein [Mass/Vol] 6.9 g/dL 6.4-8.9 [facility] RBC Auto (Bld) [#/Vol]Ordere d By: Shaikh Dotty on 01-09-2023 RBC (Bld) [#/Vol] 4.42 10*6/uL 3.90-5.60 [facility] Serum or plasma albumin/glob ulin mass ratioOrdered By: Shaikh Dotty on 01-09-2023 Albumin/Globulin [Mass ratio] 1.6 {ratio} [facility] Serum or plasma anion gap de terminationOrdered By: Shaikh Dotty on 01-09-2023 Anion gap [Moles/Vol] 9.8 mmol/L 6.0-15.0 [facility] Serum or plasma high density lipoprotein (HDL) cholesterol measurementOrdered By: Shaikh Dotty on 01-09-2023 Cholesterol in HDL [Mass/Vol] 31 mg/dL 23-92 [facility] Comment on above: HDL CHOL ATP-III CLA SSIFICATION Cardiovascular RiskHDL > or equal to 60 mg/dL LOWHDL < 40 mg/dL HIGH Serum or plasma total choles terol/high density lipoprotein (HDL) cholesterol mass ratOrdered By: Shaikh Dotty on 01-09-2023 Cholesterol.total/Chol esterol in HDL [Mass ratio] 5.7 {ratio} <5.0 [facility] Sodium [Moles/volume] in Ser um or PlasmaOrdered By: Shaikh Dotty on 01-09-2023 Sodium [Moles/Vol] 140 mmol/L 136-145 [facility] Triglyceride [Mass/volume] i n Serum or PlasmaOrdered By: Shaikh Dotty on 01-09-2023 Triglyceride [Mass/Vol] 162 mg/dL 0-149 [facility] Comment on above: TRIG ATP III CLASSIF ICATIONTRIG less than 150 mg/dL NormalTRIG 150-199 mg/dL Borderline highTRIG 200-500 mg/dL High TRIG greater than 500 mg/dL Very highStandard traceable to the Center for Disease Conrtrol and Prevention (CDC) test method. Urea nitrogen [Mass/volume] in Serum or PlasmaOrdered By: Shaikh Dotty on 01-09-2023 Urea nitrogen [Mass/Vol] 34 mg/dL 7 [facility] WBC Auto (Bld) [#/Vol]Ordere d By: Shaikh Dotty on 01-09-2023 WBC (Bld) [#/Vol] 5.6 10*3/uL 4.1-10.5 [facility] CNPJayne 01-05-2023 CNPN Telephone (IRRFV) -- YESENIA BROUSSARD ([id number]) 1945 M Date Time Provider Department 01/05/23 EVELYN CHAMBERLAIN IRR During your visit today, we recorded the [...] will need to be scheduled at [facility]. Allergies As of Date: 01/05/2023 (No Known Allergies) Date Reviewed: 11/19/2022 Reviewed by: Elizabeth Freire APRN.PHP PROGRAMMER - Fully Assessed Reason for Visit: Patient Question [3137] Appointment [186] Prescriptions as of 01/05/2023 - [...] Encounter Status:Closed by EVELYN CHAMBERLAIN on 01/05/23 Normal [facility] CULTURE URINEon 10-28-2022 CULTURE URINE Culture Observations : LIGHT GROWTH OF MIXED SKIN DANIELLE. NO POTENTIAL PATHOGENS SEEN. Normal [facility] Comment on above: Performed By: #### U RCX #### [facility] [address] [address] [address] Leighann Santnaa No Panel InformationOrdered By: Hyun Nazario on 05-09-2022 Prostate Specific Antigen Total 2.810 ng/mL 0.000-4.00 0 [facility] Basophils Auto (Bld) [#/Vol] Ordered By: Zeinab Justice on 04-23-2022 Basophils (Bld) [#/Vol] 0.0 10*3/uL 0.0-0.2 [facility] Basophils/100 WBC Auto (Bld) Ordered By: Zeinab Justice on 04-23-2022 Basophils/100 WBC (Bld) 0.5 % . [facility] Body fluid albumin measureme nt (mass/volume)Ordered By: Zeinab Justice on 04-23-2022 Albumin (Body fld) [Mass/Vol] 3.6 g/dL 3.2-5.5 [facility] Creatinine and Glomerular fi ltration rate.predicted panel (S/P/Bld)Ordered By: Zeinab Justice on 04-23-2022 Creatinine [Mass/Vol] 1.65 mg/dL 0.64-1.27 [facility] Eosinophils Auto (Bld) [#/Vo l]Ordered By: Zeinab Justice on 04-23-2022 Eosinophils (Bld) [#/Vol] 0.2 10*3/uL 0.0-0.45 [facility] Eosinophils/100 WBC Auto (Bl d)Ordered By: Zeinab Justice on 04-23-2022 Eosinophils/100 WBC (Bld) 3.4 % . [facility] Erythrocyte distribution wid th Auto (RBC) [Ratio]Ordered By: Zeinab Justice on 04-23-2022 Erythrocyte distribution width (RBC) [Ratio] 15.0 % 12.0-14.8 [facility] Estimated glomerular filtrat ion rate (GFR) non- AmericanOrdered By: Zeinab Justice on 04-23-2022 GFR/1.73 sq M.predicted among non-blacks MDRD (S/P/Bld) [Vol rate/Area] 41 mL/Min [facility] Globulin Calc (S) [Mass/Vol] Ordered By: Zeinab Justice on 04-23-2022 Globulin (S) [Mass/Vol] 2.6 g/dL [facility] Hematocrit Auto (Bld) [Volum e fraction]Ordered By: Zeinab Justice on 04-23-2022 Hematocrit (Bld) [Volume fraction] 38.0 % 38.8-50.0 [facility] Hemoglobin [Mass/volume] in BloodOrdered By: Zeinab Justice on 04-23-2022 Hemoglobin (Bld) [Mass/Vol] 12.3 g/dL 13.0-17.0 [facility] Laboratory - Hematology and Cell countsOrdered By: Zeinab Justice on 04-23-2022 Nucleated RBC/100 WBC (Bld) [Ratio] 0.2 % 0-0.5 [facility] Leukocytes [#/volume] in Blo od by Automated countOrdered By: Zeinab Justice on 04-23-2022 WBC (Bld) [#/Vol] 5.3 10*3/uL 4.5-11.0 [facility] Lymphocytes Auto (Bld) [#/Vo l]Ordered By: Zeinab Justice on 04-23-2022 Lymphocytes (Bld) [#/Vol] 0.9 10*3/uL 1.00-4.8 [facility] Lymphocytes/100 WBC Auto (Bl d)Ordered By: Zeinab Justice on 04-23-2022 Lymphocytes/100 WBC (Bld) 17.1 % . [facility] MCH Auto (RBC) [Entitic mass ]Ordered By: Zeinab Justice on 04-23-2022 MCH (RBC) [Entitic mass] 30.6 pg 27.5-35.2 [facility] MCHC Auto (RBC) [Mass/Vol]Or dered By: Zeinab Justice on 04-23-2022 MCHC (RBC) [Mass/Vol] 32.4 g/dL 32.5-35.6 [facility] MCV Auto (RBC) [Entitic vol] Ordered By: Zeinab Justice on 04-23-2022 MCV (RBC) [Entitic vol] 94.4 fL 83.5-101 [facility] Monocytes Auto (Bld) [#/Vol] Ordered By: Zeinab Justice on 04-23-2022 Monocytes (Bld) [#/Vol] 0.6 10*3/uL 0.0-0.8 [facility] Monocytes/100 WBC Auto (Bld) Ordered By: Zeinab Justice on 04-23-2022 Monocytes/100 WBC (Bld) 10.5 % . [facility] Neutrophils Auto (Bld) [#/Vo l]Ordered By: Zeinab Justice on 04-23-2022 Neutrophils (Bld) [#/Vol] 3.6 10*3/uL 1.8-7.7 [facility] Neutrophils/100 WBC Auto (Bl d)Ordered By: Zeinab Justice on 04-23-2022 Neutrophils/100 WBC (Bld) 68.5 % . [facility] No Panel InformationOrdered By: Zeinab Justice on 04-23-2022 Estimated GFR () 49 mL/Min [facility] Comment on above: GFR estimated refere nce range: According to KDOQI guidelines, <60 ml/min/1.73m2 is sufficient to diagnose a patient with chronic kidney disease. Pharmacy Creatinine Clearance (Chem N/A [facility] Platelet mean volume Auto (B ld) [Entitic vol]Ordered By: Zeinab Justice on 04-23-2022 Platelet mean volume (Bld) [Entitic vol] 9.7 fL 6.6-10.1 [facility] Platelets Auto (Bld) [#/Vol] Ordered By: Zeinab Justice on 04-23-2022 Platelets (Bld) [#/Vol] 170 10*3/uL 150-450 [facility] Protein [Mass/volume] in Ser um or PlasmaOrdered By: Zeinab Justice on 04-23-2022 Protein [Mass/Vol] 6.2 g/dL 6.1-7.9 [facility] RBC Auto (Bld) [#/Vol]Ordere d By: Zeinab Justice on 04-23-2022 RBC (Bld) [#/Vol] 4.02 10*6/uL 3.90-5.60 [facility] Serum or plasma alanine cadet otransferase measurement without P-5'-P (enzymatic activiOrdered By: Zeinab Justice on 04-23-2022 ALT No additional P-5'-P [Catalytic activity/Vol] 19 U/L [facility] Serum or plasma albumin/glob ulin mass ratioOrdered By: Zeinab Justice on 04-23-2022 Albumin/Globulin [Mass ratio] 1.4 {ratio} [facility] Serum or plasma alkaline crispin sphatase measurement (enzymatic activity/volume)Ordered By: Zeinab Justice on 04-23-2022 ALP [Catalytic activity/Vol] 51 U/L 32-92 [facility] Serum or plasma anion gap de terminationOrdered By: Zeinab Justice on 04-23-2022 Anion gap [Moles/Vol] 13.2 mmol/L 6.0-15.0 [facility] Serum or plasma aspartate am inotransferase measurement (enzymatic activity/volume)Ordered By: Zeinab Justice on 04-23-2022 AST [Catalytic activity/Vol] 18 U/L 1042 [facility] Serum or plasma calcium jose antonio urement (mass/volume)Ordered By: Zeinab Justice on 04-23-2022 Calcium [Mass/Vol] 8.8 mg/dL 8.2-10.2 [facility] Serum or plasma chloride doreen surement (moles/volume)Ordered By: Zeinab Justice on 04-23-2022 Chloride [Moles/Vol] 104 mmol/L 95-114 [facility] Serum or plasma glucose jose antonio urement (mass/volume)Ordered By: Zeinab Justice on 04-23-2022 Glucose [Mass/Vol] 98 mg/dL 70-100 [facility] Comment on above: ADA recommended refe rence rangeRandom Glucose Reference Range is dependent on time and content of last meal. Glucose of more than 200 mg/dL in a nonstressed, ambulatory subject supports the diagnosis of Diabetes Mellitus. Serum or plasma potassium me asurement (moles/volume)Ordered By: Zeinab Justice on 04-23-2022 Potassium [Moles/Vol] 4.6 mmol/L 3.5-5.1 [facility] Serum or plasma sodium measu rement (moles/volume)Ordered By: Zeinab Justice on 04-23-2022 Sodium [Moles/Vol] 136 mmol/L 136-146 [facility] Serum or plasma total biliru bin measurement (mass/volume)Ordered By: Zeinab Justice on 04-23-2022 Bilirubin [Mass/Vol] 0.5 mg/dL 0.3-1.2 [facility] Serum or plasma total carbon dioxide measurement (moles/volume)Ordered By: Zeinab Justice on 04-23-2022 CO2 [Moles/Vol] 23.4 mmol/L 22.0-30.0 [facility] [place] [facility] Serum or plasma urea nitroge n measurement (mass/volume)Ordered By: Zeinab Justice on 04-23-2022 Urea nitrogen [Mass/Vol] 22 mg/dL 02-21 [facility] CBC W Auto Differential pane l (Bld)on 03-27-2022 Basophils (Bld) [#/Vol] <0.11 k/uL [facility] Basophils/100 WBC (Bld) 0.3 % [facility] Differential cell count method Nom (Bld) Auto [facility] Eosinophils (Bld) [#/Vol] 0.25 10*3/uL <0.46 k/uL [facility] Eosinophils/100 WBC (Bld) 3.2 % [facility] Erythrocyte distribution width (RBC) [Ratio] 14.3 % 11.5 - 15.0 % [facility] Hematocrit (Bld) [Volume fraction] 39.3 % 39.0 - 51.0 % [facility] Hemoglobin (Bld) [Mass/Vol] 12.8 g/dL Low 13.0 - 17.0 g/dL [facility] Immature granulocytes (Bld) [#/Vol] 0.03 10*3/uL <0.10 k/uL [facility] Immature granulocytes/100 WBC (Bld) 0.4 % [facility] Lymphocytes (Bld) [#/Vol] 1.53 10*3/uL 1.00 - 4.00 k/uL [facility] Lymphocytes/100 WBC (Bld) 19.8 % [facility] MCH (RBC) [Entitic mass] 31.4 pg 26.0 - 34.0 pg [facility] MCHC (RBC) [Mass/Vol] 32.6 g/dL 30.5 - 36.0 g/dL [facility] MCV (RBC) [Entitic vol] 96.6 fL 80.0 - 100.0 fL [facility] Monocytes (Bld) [#/Vol] 0.67 10*3/uL <0.87 k/uL [facility] Monocytes/100 WBC (Bld) 8.7 % [facility] Neutrophils (Bld) [#/Vol] 5.21 10*3/uL 1.45 - 7.50 k/uL [facility] Neutrophils/100 WBC (Bld) 67.6 % [facility] Nucleated RBC (Bld) [#/Vol] <0.01 k/uL [facility] Nucleated RBC/100 WBC (Bld) [Ratio] 0.0 /100 WBC [facility] Platelet mean volume (Bld) [Entitic vol] 11.2 fL 9.0 - 12.7 fL [facility] Platelets (Bld) [#/Vol] 183 10*3/uL 150 - 400 k/uL [facility] RBC (Bld) [#/Vol] 4.07 10*6/uL Low 4.20 - 6.00 m/uL [facility] WBC (Bld) [#/Vol] 7.71 10*3/uL 3.70 - 11.00 k/uL [facility] CHEMISTRYOrdered By: SYSTEM SYSTEM on 02-13-2022 Albumin [...] 37 mL/min/1.73 m2 Low >=59mL/min /1.73 m2 FT Chem S Globulin (S) [Mass/Vol] 3.3 g/dL [...] - 11.0 E9/L [facility] HemeAutoSS Covid-19 PCR ([facility])on SARS-CoV-2 (COVID-19) RNA WENCESLAO+probe Ql (Unsp spec) Not detected Normal NOT DETECTED [facility] Comment on above: Result Comment: This test is not yet approved or cleared by the [place] FDA. When there are no FDA-approved or cleared tests available, and other criteria are met, FDA can make tests available under an emergency access mechanism called an Emergency Use Authorization (EUA). The EUA for this test is supported by the [place] of Health and Human Service's (HHS's) declaration [...] SARS-CoV-2. Performed By: #### C VDTBH #### [facility] [address], [place] [address] Dr. Leighann Santana PTH INTACTon 01-31-2022 PTH, Intact 35 pg/mL Normal 15-65 [facility] Comment on above: Performed By: #### P THINT #### [facility] [id number] Leighann Santana VIT D 25-[place] [facility] 2021 Vitamin D, 25-Hydroxy 26.2 ng/mL Critically low 30.0-100.0 [facility] Comment on above: Result Comment: [place] min D deficiency has been defined by the [place] of [employer] and an Endocrine Society practice guideline as a level of serum 25-OH vitamin D less than 20 ng/mL (1,2). The Endocrine Society went on to further define vitamin D insufficiency as a level between 21 and 29 ng/mL (2). 1. IOM ([place] of [employer]). 2010. Dietary reference intakes for calcium and D. [place]: The National Academies Press. 2. Grecia KAM, Wayne PALMER, John VILLEGAS, et al. Evaluation, treatment, and prevention of vitamin D deficiency: an Endocrine Society clinical practice guideline. JCEM. 2010; 96(7):1911-30. Performed By: #### V ITADLC #### [facility] [id number] Leighann Santana HEMOGRAM AND PLATELon 2021 Hematocrit (Bld) [Volume fraction] 39.3 % Critically low 42.0-54.0 [facility] Comment on above: Performed By: #### H H ####[facility] [address] [place], [place] [address]Dr. Leighann Santana Hemoglobin (Bld) [Mass/Vol] 12.5 g/dL Critically low 14.0-18.0 [facility] Comment on above: Performed By: #### H H ####[facility] [address] [address]Dr. Leighann Santana MCH (RBC) [Entitic mass] 30.2 pg Normal 25.9-34.0 [facility] Comment on above: Performed By: #### H H ####[facility] [address] [address]Dr. Leighann Santana MCHC (RBC) [Mass/Vol] 31.8 g/dL Normal 29.9-35.2 [facility] Comment on above: Performed By: #### H H ####[facility] [address] [address]Dr. Leighann Santana MCV (RBC) [Entitic vol] 94.9 fL Critically high 80.0-94.0 [facility] Comment on above: Performed By: #### H H ####[facility] [address] [address]Dr. Leighann Santana PLT 191 103/ul Normal 150-450 [facility] Comment on above: Performed By: #### H H ####[facility] [address] [place], [place] [address]Dr. Leighann Santana RBC 4.14 106/ul Critically low 4.70-6.10 [facility] Comment on above: Performed By: #### H H ####[facility] [address] [address]Dr. Leighann Santana WBC 7.3 103/ul Normal 4.0-11.0 [facility] Comment on above: Performed By: #### H H ####[facility] [address] [address]Dr. Leighann Santana MAGNESIUMon 01-30-2022 Magnesium [Mass/Vol] 1.9 mg/dL Normal 1.8-2.4 [facility] Comment on above: Performed By: #### R ENAL, MG, URIC ####[facility] [address] [address]Dr. Leighann Max RENAL FUNCTION PANELon 01-30 Albumin [Mass/Vol] 3.4 g/dL Normal 3.4-5.0 [facility] Comment on above: Performed By: #### R ENAL, MG, URIC ####[facility] [address] [address]Dr. Leighann Santana Calcium [Mass/Vol] 8.7 mg/dL Normal 8.5-10.1 [facility] Comment on above: Performed By: #### R ENAL, MG, URIC ####[facility] [address] [address]Dr. Leighann Santana Chloride [Moles/Vol] 105 mmol/L Normal 98-107 [facility] Comment on above: Performed By: #### R ENAL, MG, URIC ####[facility] [address] [place], [place] [address]Dr. Leighann Santana CO2 [Moles/Vol] 26.5 mmol/L Normal 21.0-32.0 [facility] Comment on above: Performed By: #### R ENAL, MG, URIC ####[facility] [address] [place], [place] [address]Dr. Leighann Santana Creatinine [Mass/Vol] 1.77 mg/dL Critically high 0.70-1.30 [facility] Comment on above: Performed By: #### R ENAL, MG, URIC ####[facility] [address] [place], [place] [address]Dr. Leighann Santana EGFR-AF GUYANESE 46 mL/min/1.73m2 Critically low >=60 [facility] Comment on above: Performed By: #### R ENAL, MG, URIC ####[facility] [address] [place], [place] [address]Dr. Leighann Santana EGFR-NON AF GUYANESE 38 mL/min/1.73m2 Critically low >=60 [facility] Comment on above: Performed By: #### R ENAL, MG, URIC ####[facility] [address] [address]Dr. Leighann Santana Glucose [Mass/Vol] 136 mg/dL Critically high 74-106 [facility] Comment on above: Performed By: #### R ENAL, MG, URIC ####[facility] [address] [address]Dr. Leighann Santana Phosphate [Mass/Vol] 3.6 mg/dL Normal 2.6-4.7 [facility] Comment on above: Performed By: #### R ENAL, MG, URIC ####[facility] [address] [address]Dr. Leighann Santana Potassium [Moles/Vol] 4.5 mmol/L Normal 3.5-5.1 [facility] Comment on above: Performed By: #### R ENAL, MG, URIC ####[facility] [address] [address]Dr. Leighann Santana Sodium [Moles/Vol] 140 mmol/L Normal 136-145 [facility] Comment on above: Performed By: #### R ENAL, MG, URIC ####[facility] [address] [address]DrSusan Santana Urea nitrogen [Mass/Vol] 25.0 mg/dL Critically high 7.0-18.0 [facility] Comment on above: Performed By: #### R ENAL, MG, URIC ####[facility] [address] [address]DrSusan Santana UA RANDOM W/MICROSCOPICon BACTERIA SMALL Abnormal NONE SEEN [facility] Comment on above: Performed By: #### U AMIC #### [facility] [address] [place] [address] Dr. Leighann Santana Bilirubin Ql (U) Negative Normal NEGATIVE [facility] Comment on above: Performed By: #### U AMIC #### [facility] [address] [address] [address] Leighann Santana CAST NONE SEEN Normal NONE SEEN [facility] Comment on above: Performed By: #### U AMIC #### [facility] [address] [place] [address] Dr. Leighann Santana Clarity (U) CLEAR Normal CLEAR [facility] Comment on above: Performed By: #### U AMIC #### [facility] [address] [address] [address] Leighann Santana Color (U) LT. YELLOW Normal YELLOW [facility] Comment on above: Performed By: #### U AMIC #### [facility] [address] [address] [address] Leighann Santana Crystals LM Nom (Urine sed) NONE SEEN Normal NONE SEEN [facility] Comment on above: Performed By: #### U AMIC #### [facility] [address] [address] [address] Leighann Santana Epithelial cells LM Ql (Urine sed) FEW Abnormal NONE SEEN /RARE [facility] Comment on above: Performed By: #### U AMIC #### [facility] [address] [place] [address] Dr. Leighann Santana Glucose Ql (U) Negative Normal NEGATIVE [facility] Comment on above: Performed By: #### U AMIC #### [facility] [address] [address] [address] Leighann Santana Hemoglobin Ql (U) TRACE-INTACT Abnormal NEGATIVE [facility] Comment on above: Performed By: #### U AMIC #### [facility] [address] [place] [address] Dr. Leighann Santana Ketones Ql (U) Negative Normal NEGATIVE [facility] Comment on above: Performed By: #### U AMIC #### [facility] [address] [address] [address] Leighann Santana LEUKOCYTES MODERATE Abnormal NEGATIVE [facility] Comment on above: Performed By: #### U AMIC #### [facility] [address] [address] [address] Leighann Santana MUCOUS NONE SEEN Normal NONE SEEN [facility] Comment on above: Performed By: #### U AMIC #### [facility] [address] [place] [address] Dr. Leighann Santana Nitrite Ql (U) Positive Abnormal NEGATIVE [facility] Comment on above: Performed By: #### U AMIC #### [facility] [address] [place] [address] Dr. Leighann Santana pH (U) 5.5 [pH] Normal 5-9 [facility] Comment on above: Performed By: #### U AMIC #### [facility] [address] [place] [address] Dr. Leighann Santana RBC 2-5 Abnormal 0-2 [facility] Comment on above: Performed By: #### U AMIC #### [facility] [address] [place] [address] Dr. Leighann Santana SPEC GRAVITY >=1.030 Abnormal 1.005-<=1. 025 [facility] Comment on above: Performed By: #### U AMIC #### [facility] [address] [place] [address] Dr. Leighann Santana UA PROTEIN 30 mg/dl Abnormal NEGATIVE/ TRACE [facility] Comment on above: Performed By: #### U AMIC #### [facility] [address] [place] [address] Dr. Leighann Santana Urobilinogen Qn (U) 0.2 {Jing'U}/dL Normal 0.2 - 1. 0 [facility] Comment on above: Performed By: #### U AMIC #### [facility] [address] [place] [address] Dr. Leighann Santana WBC 10-20 Abnormal NONE SEEN [facility] Comment on above: Performed By: #### U AMIC #### [facility] [address] [place] [address] Dr. Leighann Santana URIC ACID SERUMon 01-30-2022 Urate [Mass/Vol] 6.5 mg/dL Normal 3.5-7.2 [facility] Comment on above: Performed By: #### R ENAL, MG, URIC ####[facility] [address] [address]Dr. Leighann Santana URINE T PROTEIN CREAT RATIOo n 01-30-2022 Protein (U) [Mass/Vol] 73.2 mg/dL Critically high <=12.0 [facility] Comment on above: Performed By: #### U RTPCR #### [facility] [address] [address] [address] Leighann Santana UR PROT CREAT RAT 0.42 Normal [facility] Comment on above: Performed By: #### U RTPCR #### [facility] [address] [address] [address] Leighann Santana URINE CREAT 175.21 mg/dL Normal 20.00-300. 00 [facility] Comment on above: Performed By: #### U RTPCR #### [facility] [address] [address] [address] Leighann Santana SURGICAL PATH REPORTon 06-11 SURGICAL PATH REPORT [facility] Department of Pathology [address] [place] [id number] Name: YESENIA BROUSSARD : 1945 [facility] [id number] Number: Gender: Male Location: [facility] Admit 75 years Attending BARBARA JOHNSTON Age: Provider: Ordering BARBARA JOHNSTON Provider: Consulting: Surgical Pathology Report ACCESSION: COLLECTED DATE/TIME: RECEIVED DATE/TIME: PATHOLOGIST: [id number] 06/06/2021 16:30 EST 06/07/2021 11:15 EST QUINN MAK, [facility] Final Diagnosis Report for [facility], [place] PROSTATE TISSUE; TURP: - PROSTATIC ACINAR ADENOCARCINOMA, 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 COMMENT: Intradepartmental consultation was obtained with diagnostic concurrence. CANCER CASE SUMMARY SPECIMEN Procedure Transurethral resection of the prostate (TURP) TUMOR Histologic Type Acinar adenocarcinoma Histologic Grade Grade Grade group 2 ([place] Score 3 + 4 = 7) Percentage of Pattern 4 6 - 10% Intraductal Carcinoma (IDC) Not identified Cribriform Glands Not identified Print Date/ 06/11/2021 16:16 EST Number: Time: [facility] Department of Pathology [address] [place] [address] Name: YESENIA BROUSSARD : 1945 [employer] [id number] Number: Gender: Male Location: [facility] Admit 75 years Attending BARBARA JOHNSTON Age: Provider: Ordering BARBARA JOHNSTON Provider: Consulting: Surgical Pathology Report ACCESSION: COLLECTED DATE/TIME: RECEIVED DATE/TIME: PATHOLOGIST: [id number] 06/06/2021 16:30 EST 06/07/2021 11:15 EST QUINN [...] Print Date/ 06/11/2021 16:16 EST Number: Time: [facility] Department of Pathology [address] [place] [address] Name: YESENIA BROUSSARD : 1945 [employer] [id number] Number: Gender: Male Location: [facility] Admit 75 years Attending BARBARA JOHNSTON Age: Provider: Ordering BARBARA JOHNSTON Provider: Consulting: Surgical Pathology Report ACCESSION: COLLECTED DATE/TIME: RECEIVED DATE/TIME: PATHOLOGIST: [id number] 06/06/2021 16:30 EST 06/07/2021 11:15 EST QUINN MAK, [facility] Gross Description Labeled prostate tissue. Received in formalin are multiple hemicylindrical segments of khan- pink firm, but pliable tissue. The segments have an aggregate weight of 12 grams and measure in aggregate 7.8 x 6.4 x 2.0 cm. There are calculi present amongst the tissue segment. The specimen is entirely submitted in twelve cassettes. MP/ww 06/07/2021 Tissue pathology report for: [facility], [address] [place] [address]; PATHOLOGY SERVICES PROVIDED BY [employer] (CLIA #[id number]) in cooperation with [facility] at [address] [place] [address] (CLIA #[id number]) Codes CPT CODE: 28721 Print Date/ 06/11/2021 16:16 EST Number: Time: Normal [facility] Comment on above: Performed By: #### [id number] #### [facility] [address] [place] [address] [employer]: Gigi Peters MD Vital Signs Date Time Vital Sign Value Performing Clinician Facility 01-18-2025 09:270400 Body height 177.8 cm SRAVANTHI Nazario MD Work Phone: [facility] 01-18-2025 09:27-0400 Body mass index (BMI) [Ratio] 27.99 kg/m2 SRAVANTHI Nazario MD Work Phone: [facility] 01-18-2025 09:27-0400 Body temperature 98.6 [degF] SRAVANTHI Nazario MD Work Phone: [facility] 01-18-2025 09:27-0400 Body weight 88.5 kg SRAVANTHI Nazario MD Work Phone: [facility] 01-18-2025 09:27-0400 Diastolic blood pressure 75 mm[Hg] SRAVANTHI Nazario MD Work Phone: [facility] 01-18-2025 09:27-0400 Heart rate 92 /min SRAVANTHI Nazario MD Work Phone: [facility] 01-18-2025 09:27-0400 Respiratory rate 16 /min SRAVANTHI Nazario MD Work Phone: [facility] 01-18-2025 09:27-0400 SaO2% (BldA) [Mass fraction] 96 % SRAVANTHI Nazario MD Work Phone: [facility] 01-18-2025 09:27-0400 Systolic blood pressure 150 mm[Hg] SRAVANTHI Nazario MD Work Phone: [facility] 08-30-2024 11:30-0400 Diastolic blood pressure 68 mm[Hg] Jose Hector CLINICAL APPLICATION SPECIALIST-PHP PROGRAMMER Work Phone: [facility] 08-30-2024 11:30-0400 Systolic blood pressure 136 mm[Hg] Jose Hector CLINICAL APPLICATION SPECIALIST-PHP PROGRAMMER Work Phone: [facility] 08-30-2024 11:16-0400 Body height 177.8 cm Jose Hector CLINICAL APPLICATION SPECIALIST-PHP PROGRAMMER Work Phone: [facility] 08-30-2024 11:16-0400 Body mass index (BMI) [Ratio] 28.55 kg/m2 Jose Hector CLINICAL APPLICATION SPECIALIST-PHP PROGRAMMER Work Phone: [facility] 08-30-2024 11:16-0400 Body weight 90.27 kg Jose Hector CLINICAL APPLICATION SPECIALIST-PHP PROGRAMMER Work Phone: [facility] 08-30-2024 11:16-0400 Heart rate 84 /min Jose Hector CLINICAL APPLICATION SPECIALIST-PHP PROGRAMMER Work Phone: [facility] 08-15-2024 10:39-0400 Body height 177.8 cm Brian Avalos MD Work Phone: [facility] 08-15-2024 10:39-0400 Body mass index (BMI) [Ratio] 28.4 kg/m2 Brian Avalos MD Work Phone: [facility] 08-15-2024 10:39-0400 Body temperature 97.8 [degF] Brian Avalos MD Work Phone: [facility] 08-15-2024 10:39-0400 Body weight 89.92 kg Brian Avalos MD Work Phone: [facility] 08-15-2024 10:39-0400 Diastolic blood pressure 74 mm[Hg] Brian Avalos MD Work Phone: [facility] 08-15-2024 10:39-0400 Heart rate 85 /min Brian Avalos MD Work Phone: [facility] 08-15-2024 10:39-0400 Respiratory rate 16 /min Brian Avalos MD Work Phone: [facility] 08-15-2024 10:39-0400 SaO2% (BldA) [Mass fraction] 98 % Brian Avalos MD Work Phone: [facility] 08-15-2024 10:39-0400 Systolic blood pressure 123 mm[Hg] Brian Avalos MD Work Phone: [facility] 07-14-2024 11:14-0500 Body height 177.8 cm Brian Avalos MD Work Phone: [facility] 07-14-2024 11:14-0500 Body temperature 98 [degF] Brian Avalos MD Work Phone: [facility] 07-14-2024 11:14-0500 Body weight 89 kg Brian Avalos MD Work Phone: [facility] 07-14-2024 11:14-0500 Diastolic blood pressure 90 mm[Hg] Brian Avalos MD Work Phone: [facility] 07-14-2024 11:14-0500 Heart rate 101 /min Brian Avalos MD Work Phone: [facility] 07-14-2024 11:14-0500 Respiratory rate 18 /min Brian Avalos MD Work Phone: [facility] 07-14-2024 11:14-0500 SaO2% (BldA) [Mass fraction] 96 % Brian Avalos MD Work Phone: [facility] 07-14-2024 11:14-0500 Systolic blood pressure 178 mm[Hg] Brian Avalos MD Work Phone: [facility] 07-13-2024 13:16-0500 Body height 177.8 cm Nasir Ward VP RHEUMATOLOGY Work Phone: [facility] 07-13-2024 13:16-0500 Body mass index (BMI) [Ratio] 28.84 kg/m2 Nasir Ward VP RHEUMATOLOGY Work Phone: [facility] 07-13-2024 13:16-0500 Body temperature 97.7 [degF] Nasir Ward VP RHEUMATOLOGY Work Phone: [facility] 07-13-2024 13:16-0500 Body weight 91.17 kg Nasir Ward VP RHEUMATOLOGY Work Phone: [facility] 07-13-2024 13:16-0500 Diastolic blood pressure 70 mm[Hg] Nasir Ward VP RHEUMATOLOGY Work Phone: [facility] 07-13-2024 13:16-0500 Heart rate 94 /min Nasir Ward VP RHEUMATOLOGY Work Phone: [facility] 07-13-2024 13:16-0500 Respiratory rate 16 /min Nasir Ward VP RHEUMATOLOGY Work Phone: [facility] 07-13-2024 13:16-0500 SaO2% (BldA) [Mass fraction] 94 % Nasir Ward VP RHEUMATOLOGY Work Phone: [facility] 07-13-2024 13:16-0500 Systolic blood pressure 136 mm[Hg] Nasir Ward VP RHEUMATOLOGY Work Phone: [facility] 04-21-2024 11:12-0500 Body height 177.8 cm Nasir Ward VP RHEUMATOLOGY Work Phone: [facility] 04-21-2024 11:12-0500 Body mass index (BMI) [Ratio] 27.86 kg/m2 Nasir Ward VP RHEUMATOLOGY Work Phone: [facility] 04-21-2024 11:12-0500 Body temperature 96.3 [degF] Nasir Ward VP RHEUMATOLOGY Work Phone: [facility] 04-21-2024 11:12-0500 Body weight 88.09 kg Nasir Ward VP RHEUMATOLOGY Work Phone: [facility] 04-21-2024 11:12-0500 Diastolic blood pressure 68 mm[Hg] Nasir Ward VP RHEUMATOLOGY Work Phone: [facility] 04-21-2024 11:12-0500 Heart rate 93 /min Nasir Ward VP RHEUMATOLOGY Work Phone: [facility] 04-21-2024 11:12-0500 Respiratory rate 16 /min Nasir Ward VP RHEUMATOLOGY Work Phone: [facility] 04-21-2024 11:12-0500 SaO2% (BldA) [Mass fraction] 93 % Nasir Ward VP RHEUMATOLOGY Work Phone: [facility] 04-21-2024 11:12-0500 Systolic blood pressure 128 mm[Hg] Nasir Ward VP RHEUMATOLOGY Work Phone: [facility] 04-18-2024 11:31-0500 Blood Pressure Location Barbara JOHNSTON [facility] 04-18-2024 11:31-0500 Body temperature 98.6 [degF] Barbara JOHNSTON [facility] 04-18-2024 11:31-0500 Diastolic blood pressure 85 mm[Hg] Barbara JOHNSTON [facility] 04-18-2024 11:31-0500 Heart rate 95 /min Barbara JOHNSTON [facility] 04-18-2024 11:31-0500 Respiratory rate 16 /min Barbara JOHNSTON [facility] 04-18-2024 11:31-0500 Systolic blood pressure 122 mm[Hg] Barbara JOHNSTON [facility] 02-29-2024 08:28-0400 Body height 177.8 cm PHYSICIAN NO [facility] 02-29-2024 08:28-0400 Body mass index (BMI) [Ratio] 27.4 kg/m2 PHYSICIAN NO [facility] 02-29-2024 08:28-0400 Body temperature 97.8 [degF] PHYSICIAN NO [facility] 02-29-2024 08:28-0400 Body weight 86.86 kg PHYSICIAN NO [facility] 02-29-2024 08:28-0400 Diastolic blood pressure 84 mm[Hg] PHYSICIAN NO [facility] 02-29-2024 08:28-0400 Heart rate 98 /min PHYSICIAN NO [facility] 02-29-2024 08:28-0400 Respiratory rate 16 /min PHYSICIAN NO [facility] 02-29-2024 08:28-0400 SaO2% (BldA) [Mass fraction] 99 % PHYSICIAN NO [facility] 02-29-2024 08:28-0400 Systolic blood pressure 129 mm[Hg] PHYSICIAN NO [facility] 01-20-2024 17:46-0400 Body height 177.8 cm Nasir Ward VP RHEUMATOLOGY Work Phone: [facility] 01-20-2024 17:46-0400 Body mass index (BMI) [Ratio] 27.55 kg/m2 Nasir Ward VP RHEUMATOLOGY Work Phone: [facility] 01-20-2024 17:46-0400 Body temperature 98.49 [degF] Nasir Ward VP RHEUMATOLOGY Work Phone: [facility] 01-20-2024 17:46-0400 Body weight 87.09 kg Nasir Ward VP RHEUMATOLOGY Work Phone: [facility] 01-20-2024 17:46-0400 Diastolic blood pressure 70 mm[Hg] Nasir Ward VP RHEUMATOLOGY Work Phone: [facility] 01-20-2024 17:46-0400 Heart rate 76 /min Nasir Ward VP RHEUMATOLOGY Work Phone: [facility] Comment on above: 97% O2 01-20-2024 17:46-0400 Systolic blood pressure 130 mm[Hg] Nasir Ward VP RHEUMATOLOGY Work Phone: [facility] 12-15-2023 14:33-0400 Body mass index (BMI) [Ratio] 27.49 kg/m2 SRAVANTHI Nazario MD Work Phone: [facility] 12-15-2023 14:33-0400 Body temperature 97.81 [degF] SRAVANTHI Nazario MD Work Phone: [facility] 12-15-2023 14:33-0400 Body weight 86.9 kg SRAVANTHI Nazario MD Work Phone: [place] [address]-16-2024 14:33-0400 Diastolic blood pressure 76 mm[Hg] SRAVANTHI Nazario MD Work Phone: [facility] 12-15-2023 14:33-0400 Heart rate 86 /min SRAVANTHI Nazario MD Work Phone: [facility] 12-15-2023 14:33-0400 Respiratory rate 16 /min SRAVANTHI Nazario MD Work Phone: [facility] 12-15-2023 14:33-0400 SaO2% (BldA) [Mass fraction] 98 % SRAVANTHI Nazario MD Work Phone: [facility] 12-15-2023 14:33-0400 Systolic blood pressure 137 mm[Hg] SRAVANTHI Nazario MD Work Phone: [facility] 10-15-2023 09:17-0400 Body height 177.8 cm MD Shaikh Storm Work Phone: [facility] 10-15-2023 09:17-0400 Body mass index (BMI) [Ratio] 28.1 kg/m2 MD Shaikh Storm Work Phone: [facility] 10-15-2023 09:17-0400 Body temperature 97.8 [degF] MD Shaikh Storm Work Phone: [facility] 10-15-2023 09:17-0400 Body weight 89 kg MD Shaikh Storm Work Phone: [facility] 10-15-2023 09:17-0400 Diastolic blood pressure 86 mm[Hg] MD Shaikh Storm Work Phone: [facility] 10-15-2023 09:17-0400 Heart rate 67 /min MD Shaikh Storm Work Phone: [facility] 10-15-2023 09:17-0400 Respiratory rate 16 /min MD Shaikh Storm Work Phone: [facility] 10-15-2023 09:17-0400 SaO2% (BldA) [Mass fraction] 94 % MD Shaikh Storm Work Phone: [facility] 10-15-2023 09:17-0400 Systolic blood pressure 128 mm[Hg] MD Shaikh Storm Work Phone: [facility] 09-18-2023 10:50-0400 Blood Pressure Location Barbara JOHNSTON [facility] 09-18-2023 10:50-0400 Diastolic blood pressure 81 mm[Hg] Barbaraterry JOHNSTON [facility] 09-18-2023 10:50-0400 Heart rate 76 /min Barbaraterry JOHNSTON [facility] 09-18-2023 10:50-0400 Respiratory rate 16 /min Barbaraterry JOHNSTON [facility] 09-18-2023 10:50-0400 Systolic blood pressure 128 mm[Hg] Barbara JOHNSTON [facility] 08-18-2023 12:12-0400 Diastolic blood pressure 60 mm[Hg] Chaim Grayson DO Work Phone: [facility] 08-18-2023 12:12-0400 Systolic blood pressure 138 mm[Hg] Chaim Grayson DO Work Phone: [facility] 08-18-2023 11:52-0400 Body height 177.8 cm Chaim Grayson DO Work Phone: [facility] 08-18-2023 11:52-0400 Body mass index (BMI) [Ratio] 28.12 kg/m2 Chaim Grayson DO Work Phone: [facility] 08-18-2023 11:52-0400 Body weight 88.91 kg Chaim Grayson DO Work Phone: [facility] 08-18-2023 11:52-0400 Heart rate 80 /min Chaim Grayson DO Work Phone: [facility] 06-18-2023 13:11-0500 Diastolic blood pressure 94 mm[Hg] Tram 1 [facility] 06-18-2023 13:11-0500 Heart rate 86 /min Tram 1 [facility] 06-18-2023 13:11-0500 Systolic blood pressure 154 mm[Hg] Tram 1 [facility] 06-12-2023 11:11-0500 Body height 177.8 cm Kodi Reynolds MD Work Phone: [facility] 06-12-2023 11:11-0500 Body weight 88.91 kg Kodi Reynolds MD Work Phone: [facility] 06-04-2023 10:19-0500 Diastolic blood pressure 84 mm[Hg] Chaim Grayson DO Work Phone: [facility] 06-04-2023 10:19-0500 Systolic blood pressure 154 mm[Hg] Chaim Grayson DO Work Phone: [facility] 06-04-2023 10:18-0500 Body height 177.8 cm Chaim Grayson DO Work Phone: [facility] 06-04-2023 10:18-0500 Body mass index (BMI) [Ratio] 28.41 kg/m2 Chaim Grayson DO Work Phone: [facility] 06-04-2023 10:18-0500 Body weight 89.81 kg Chaim Grayson DO Work Phone: [facility] 06-04-2023 10:18-0500 Heart rate 83 /min Chaim Grayson DO Work Phone: [facility] 04-21-2023 09:05-0500 Diastolic blood pressure 86 mm[Hg] CLAIRE JAMES [facility] 04-21-2023 09:05-0500 Heart rate 76 /min CLAIRE BRITNI [facility] 04-21-2023 09:05-0500 Mean blood pressure 108 mm[Hg] CLAIRE BRITNI [facility] 04-21-2023 09:05-0500 Systolic blood pressure 151 mm[Hg] CLAIRE BRITNI [facility] 04-21-2023 08:20-0500 Blood Pressure Location CLAIRE BRITNI [facility] 04-21-2023 08:20-0500 Diastolic blood pressure 84 mm[Hg] CLAIRE BRITNI [facility] 04-21-2023 08:20-0500 Heart rate 79 /min CLAIRE BRITNI [facility] 04-21-2023 08:20-0500 Respiratory rate 16 /min CLAIRE BRITNI [facility] 04-21-2023 08:20-0500 Systolic blood pressure 153 mm[Hg] CLAIRE BRITNI [facility] 04-16-2023 11:30-0500 Body height 177.8 cm Jose Martin Mchugh Other [employer] Other 04-16-2023 11:30-0500 Body mass index (BMI) [Ratio] 28.26 kg/m2 Jose Martin Mchugh Other [employer] Other 04-16-2023 11:30-0500 Body temperature 97.8 [degF] Jose Martin Rosariozaira Other [employer] Other 04-16-2023 11:30-0500 Body weight 89.36 kg Jose Martin Rosariozaira Other [employer] Other 04-16-2023 11:30-0500 Diastolic blood pressure 62 mm[Hg] Jose Martin Jeison Other [employer] Other 04-16-2023 11:30-0500 SaO2% (BldA) [Mass fraction] 97 % Jose Martin Jeison Other [employer] Other 04-16-2023 11:30-0500 Systolic blood pressure 120 mm[Hg] Jose Martin Jeison Other [employer] Other 03-23-2023 12:55-0400 Diastolic blood pressure 78 mm[Hg] MD Shaikh Storm Work Phone: [facility] 03-23-2023 12:55-0400 Heart rate 54 /min MD Shaikh Storm Work Phone: [facility] 03-23-2023 12:55-0400 Respiratory rate 16 /min MD Shaikh Storm Work Phone: [facility] 03-23-2023 12:55-0400 SaO2% (BldA) [Mass fraction] 95 % MD Shaikh Storm Work Phone: [facility] 03-23-2023 12:55-0400 Systolic blood pressure 145 mm[Hg] MD Shaikh Storm Work Phone: [facility] 03-23-2023 09:48-0400 Inhaled oxygen flow rate 4 L/min MD Shaikh Storm Work Phone: [facility] 03-23-2023 07:22-0400 Body height 177.8 cm MD Shaikh Storm Work Phone: [facility] 03-23-2023 07:22-0400 Body weight 89.35 kg MD Shaikh Storm Work Phone: [facility] 03-12-2023 08:30-0400 Body height 177.8 cm Jose Martin Mchugh Other [facility] [employer] Other 03-12-2023 08:30-0400 Body mass index (BMI) [Ratio] 28.26 kg/m2 Jose Martin Mchugh Other [employer] Other 03-12-2023 08:30-0400 Body temperature 97.5 [degF] Jose Martin Mchugh Other [employer] Other 03-12-2023 08:30-0400 Body weight 89.36 kg Jose Martin Mchugh Other [employer] Other 03-12-2023 08:30-0400 Diastolic blood pressure 68 mm[Hg] Jose Martin Mchugh Other [employer] Other 03-12-2023 08:30-0400 SaO2% (BldA) [Mass fraction] 97 % Jose Martin Mchugh Other [employer] Other 03-12-2023 08:30-0400 Systolic blood pressure 128 mm[Hg] Jose Martin Mchugh Other [employer] Other 02-20-2023 11:15-0400 Diastolic blood pressure 63 mm[Hg] MD Shaikh Storm Work Phone: [facility] 02-20-2023 11:15-0400 Heart rate 45 /min MD Shaikh Storm Work Phone: [facility] 02-20-2023 11:15-0400 Respiratory rate 18 /min MD Shaikh Storm Work Phone: [facility] 02-20-2023 11:15-0400 SaO2% (BldA) [Mass fraction] 95 % MD Shaikh Storm Work Phone: [facility] 02-20-2023 11:15-0400 Systolic blood pressure 123 mm[Hg] MD Shaikh Storm Work Phone: [facility] 02-20-2023 11:07-0400 Body height 177.8 cm MD Shaikh Storm Work Phone: [facility] 02-20-2023 11:07-0400 Body mass index (BMI) [Ratio] 29 kg/m2 MD Shaikh Storm Work Phone: [facility] 02-20-2023 11:07-0400 Body weight 92 kg MD Shaikh Storm Work Phone: [facility] 02-20-2023 07:53-0400 Body temperature 98 [degF] MD Shaikh Storm Work Phone: [facility] 02-18-2023 11:30-0400 Body height 177.8 cm Bonnie Tan Other [employer] Other 02-18-2023 11:30-0400 Body mass index (BMI) [Ratio] 29.12 kg/m2 Bonnie Tan Other [employer] Other 02-18-2023 11:30-0400 Body temperature 97.8 [degF] Bonnie Tan Other [employer] Other 02-18-2023 11:30-0400 Body weight 92.08 kg Bonnie Tan Other [employer] Other 02-18-2023 11:30-0400 Diastolic blood pressure 76 mm[Hg] Bonnie Tan Other [employer] Other 02-18-2023 11:30-0400 SaO2% (BldA) [Mass fraction] 97 % Bonnie Tan Other [employer] Other 02-18-2023 11:30-0400 Systolic blood pressure 126 mm[Hg] Bonnie Tan Other [employer] Other 02-11-2023 14:48-0400 Blood Pressure Location CLAIRE BRITNI [facility] 02-11-2023 14:48-0400 Diastolic blood pressure 74 mm[Hg] CLAIRE BRITNI [facility] 02-11-2023 14:48-0400 Heart rate 80 /min CLAIRE BRITNI [facility] 02-11-2023 14:48-0400 Respiratory rate 16 /min CLAIRE BRITNI [facility] 02-11-2023 14:48-0400 Systolic blood pressure 130 mm[Hg] CLAIRE BRITNI [facility] 01-19-2023 13:04-0400 Body weight 92.63 kg Jose Nichols DO Work Phone: [facility] 01-19-2023 13:04-0400 Diastolic blood pressure 58 mm[Hg] Jose Nichols DO Work Phone: [facility] 01-19-2023 13:04-0400 Heart rate 48 /min Jose Nichols DO Work Phone: [facility] 01-19-2023 13:04-0400 Systolic blood pressure 122 mm[Hg] Jose Nichols DO Work Phone: [facility] 12-03-2022 14:57-0400 Blood Pressure Location CLAIREPRABHAKAR STEPHENSRY [facility] 12-03-2022 14:57-0400 Diastolic blood pressure 76 mm[Hg] CLAIRE BRITNI [facility] 12-03-2022 14:57-0400 Heart rate 69 /min CLAIRE BRITNI [facility] 12-03-2022 14:57-0400 Respiratory rate 16 /min CLAIRE BRITNI [facility] 12-03-2022 14:57-0400 Systolic blood pressure 138 mm[Hg] CLAIRE BRITNI [facility] 11-18-2022 13:29-0400 Body temperature 98.71 [degF] SRAVANTHI Nazario MD Work Phone: [facility] 11-18-2022 13:29-0400 Body weight 92.53 kg SRAVANTHI Nazario MD Work Phone: [facility] 11-18-2022 13:29-0400 Diastolic blood pressure 54 mm[Hg] SRAVANTHI Nazario MD Work Phone: [facility] 11-18-2022 13:29-0400 Heart rate 56 /min SRAVANTHI Nazario MD Work Phone: [facility] 11-18-2022 13:29-0400 Respiratory rate 18 /min SRAVANTHI Nazario MD Work Phone: [facility] 11-18-2022 13:29-0400 SaO2% (BldA) [Mass fraction] 96 % SRAVANTHI Nazario MD Work Phone: [facility] 11-18-2022 13:29-0400 Systolic blood pressure 112 mm[Hg] SRAVANTHI Nazario MD Work Phone: [facility] 04-21-2022 15:30-0500 Body temperature 96.69 [degF] SRAVANTHI Nazario MD Work Phone: [facility] 04-21-2022 15:30-0500 Body weight 95.71 kg SRAVANTHI Nazario MD Work Phone: [facility] 04-21-2022 15:30-0500 Diastolic blood pressure 70 mm[Hg] SRAVANTHI Nazario MD Work Phone: [facility] 04-21-2022 15:30-0500 Heart rate 58 /min SRAVANTHI Nazario MD Work Phone: [facility] 04-21-2022 15:30-0500 Respiratory rate 18 /min SRAVANTHI Nazario MD Work Phone: [facility] 04-21-2022 15:30-0500 SaO2% (BldA) [Mass fraction] 98 % SRAVANTHI Nazario MD Work Phone: [facility] 04-21-2022 15:30-0500 Systolic blood pressure 154 mm[Hg] SRAVANTHI Nazario MD Work Phone: [facility] 04-14-2022 15:04-0500 Body temperature 97.59 [degF] SRAVANTHI Nazario MD Work Phone: [facility] 04-14-2022 15:04-0500 Body weight 93.44 kg SRAVANTHI Nazario MD Work Phone: [facility] 04-14-2022 15:04-0500 Diastolic blood pressure 68 mm[Hg] SRAVANTHI Nazario MD Work Phone: [facility] 04-14-2022 15:04-0500 Heart rate 64 /min SRAVANTHI Nazario MD Work Phone: [facility] 04-14-2022 15:04-0500 Respiratory rate 16 /min SRAVANTHI Nazario MD Work Phone: [facility] 04-14-2022 15:04-0500 SaO2% (BldA) [Mass fraction] 97 % SRAVANTHI Nazario MD Work Phone: [facility] 04-14-2022 15:04-0500 Systolic blood pressure 128 mm[Hg] SRAVANTHI Nazario MD Work Phone: [facility] 04-07-2022 11:01-0500 Body temperature 97.39 [degF] SRAVANTHI Nazario MD Work Phone: [facility] 04-07-2022 11:01-0500 Body weight 94.35 kg SRAVANTHI Nazario MD Work Phone: [facility] 04-07-2022 11:01-0500 Diastolic blood pressure 63 mm[Hg] SRAVANTHI Nazario MD Work Phone: [facility] 04-07-2022 11:01-0500 Heart rate 55 /min SRAVANTHI Nazario MD Work Phone: [facility] 04-07-2022 11:01-0500 Respiratory rate 18 /min SRAVANTHI Nazario MD Work Phone: [facility] 04-07-2022 11:01-0500 SaO2% (BldA) [Mass fraction] 98 % SRAVANTHI Nazario MD Work Phone: [facility] 04-07-2022 11:01-0500 Systolic blood pressure 138 mm[Hg] SRAVANTHI Nazario MD Work Phone: [facility] 03-31-2022 15:33-0400 Body temperature 96.69 [degF] SRAVANTHI Nazario MD Work Phone: [facility] 03-31-2022 15:33-0400 Body weight 94.8 kg SRAVANTHI Nazario MD Work Phone: [facility] 03-31-2022 15:33-0400 Diastolic blood pressure 72 mm[Hg] SRAVANTHI Nazario MD Work Phone: [facility] 03-31-2022 15:33-0400 Heart rate 54 /min SRAVANTHI Nazario MD Work Phone: [facility] 03-31-2022 15:33-0400 Respiratory rate 18 /min SRAVANTHI Nazario MD Work Phone: [facility] 03-31-2022 15:33-0400 SaO2% (BldA) [Mass fraction] 97 % SRAVANTHI Nazario MD Work Phone: [facility] 03-31-2022 15:33-0400 Systolic blood pressure 145 mm[Hg] SRAVANTHI Nazario MD Work Phone: [facility] 03-24-2022 16:03-0400 Body temperature 98.01 [degF] SRAVANTHI Nazario MD Work Phone: [facility] 03-24-2022 16:03-0400 Body weight 93.44 kg SRAVANTHI Nazario MD Work Phone: [facility] 03-24-2022 16:03-0400 Diastolic blood pressure 65 mm[Hg] SRAVANTHI Nazario MD Work Phone: [facility] 03-24-2022 16:03-0400 Heart rate 50 /min SRAVANTHI Nazario MD Work Phone: [facility] 03-24-2022 16:03-0400 Respiratory rate 16 /min SRAVANTHI Nazario MD Work Phone: [facility] 03-24-2022 16:03-0400 SaO2% (BldA) [Mass fraction] 100 % SRAVANTHI Nazario MD Work Phone: [facility] 03-24-2022 16:03-0400 Systolic blood pressure 141 mm[Hg] SRAVANTHI Nazario MD Work Phone: [facility] 03-18-2022 11:52-0400 Body temperature 97.9 [degF] SRAVANTHI Nazario MD Work Phone: [facility] 03-18-2022 11:52-0400 Body weight 93.44 kg SRAVANTHI Nazario MD Work Phone: [facility] 03-18-2022 11:52-0400 Diastolic blood pressure 71 mm[Hg] SRAVANTHI Nazario MD Work Phone: [facility] 03-18-2022 11:52-0400 Heart rate 56 /min SRAVANTHI Nazario MD Work Phone: [facility] 03-18-2022 11:52-0400 Respiratory rate 16 /min SRAVANTHI Nazario MD Work Phone: [facility] 03-18-2022 11:52-0400 SaO2% (BldA) [Mass fraction] 96 % SRAVANTHI Nazario MD Work Phone: [facility] 03-18-2022 11:52-0400 Systolic blood pressure 115 mm[Hg] SRAVANTHI Nazario MD Work Phone: [facility] 12-10-2021 09:19-0400 Body height 175.9 cm SRAVANTHI Nazario MD Work Phone: [facility] 12-10-2021 09:19-0400 Body temperature 98.71 [degF] SRAVANTHI Nazario MD Work Phone: [facility] 12-10-2021 09:19-0400 Body weight 94.35 kg SRAVANTHI Nazario MD Work Phone: [facility] 12-10-2021 09:19-0400 Diastolic blood pressure 68 mm[Hg] SRAVANTHI Nazario MD Work Phone: [facility] 12-10-2021 09:19-0400 Heart rate 51 /min SRAVANTHI Nazario MD Work Phone: [facility] 12-10-2021 09:19-0400 Respiratory rate 16 /min SRAVANTHI Nazario MD Work Phone: [facility] 12-10-2021 09:19-0400 SaO2% (BldA) [Mass fraction] 97 % NA Luz Marina MAK Work Phone: [facility] 12-10-2021 09:19-0400 Systolic blood pressure 116 mm[Hg] NA Luz Marina MAK Work Phone: [facility] 11-04-2021 09:48-0400 Blood Pressure Location Barbara JOHNSTON [facility] 11-04-2021 09:48-0400 Diastolic blood pressure 61 mm[Hg] Barbara JOHNSTON [facility] 11-04-2021 09:48-0400 Heart rate 52 /min Barbara JOHNSTON [facility] 11-04-2021 09:48-0400 Systolic blood pressure 123 mm[Hg] Barbara JOHNSTON [facility] 10-24-2021 16:40-0400 Body height 177.8 cm Theo Vivian Other [employer] Other 10-24-2021 16:40-0400 Body mass index (BMI) [Ratio] 29.01 kg/m2 Theo Vivian Other [employer] Other 10-24-2021 16:40-0400 Body temperature 98 [degF] Theo Vivian Other [employer] Other 05-26-2022 16:40-0400 Body weight 91.72 kg Theo Vivian Other [employer] Other 10-24-2021 16:40-0400 Diastolic blood pressure 72 mm[Hg] Theo Vivian Other [employer] Other 10-24-2021 16:40-0400 Respiratory rate 18 /min Theo Vivian Other [employer] Other 10-24-2021 16:40-0400 SaO2% (BldA) [Mass fraction] 96 % Theo Vivian Other [employer] Other 10-24-2021 16:40-0400 Systolic blood pressure 130 mm[Hg] Theo Vivian Other [employer] Other Encounters Encounter Date Encounter Type Care Provider Facility Start: 01-18-2025 End: 01-18-2025 Office outpatient visit 15 minutes Hyun Nazario MD Work Phone: [facility] Comment on above: Cancer of prostate w /med recur risk (T2b-c or [place] 7 or PSA 10-20) (HCC) (Primary Dx) Start: 01-18-2025 End: 01-18-2025 ambulatory Hyun NAZARIO Facility:[facility] Start: 01-12-2025 End: 01-12-2025 Clinisync Result Encounter Generic External Data Provider [facility] External Department Unsolicited Start: 01-12-2025 End: 01-12-2025 Clinisync Result Encounter Generic External Data Provider [facility] External Department Unsolicited Start: 01-12-2025 End: 01-12-2025 ambulatory Hyun NAZARIO Facility:[facility] Start: 09-12-2024 End: 09-12-2024 Eliseo Avalos MD Work Phone: [facility] Comment on above: Primary hypertension (CMS/HCC) Start: 08-30-2024 End: 08-30-2024 ambulatory JOES Wood [facility] Start: 08-30-2024 End: 08-30-2024 Office outpatient visit 15 minutes Jose Wood Hector CLINICAL APPLICATION SPECIALIST-PHP PROGRAMMER Work Phone: [facility] Comment on above: Mixed hyperlipidemia (Primary Dx); Bilateral carotid artery disease, unspecified type; Hypertension, unspecified type; BMI 28.0-28.9,adult; Smoker; Prostate cancer (Multi); Chronic kidney disease, stage 3b (Multi); ASHD (arteriosclerotic heart disease); PVD (peripheral vascular disease) ([facility]-HCC) Start: 08-29-2024 End: 08-30-2024 ambulatory CLAIRE JAMES Facility[facility] Start: 08-29-2024 End: 08-30-2024 Lab Drop off CLAIRE JAMES [facility] Start: 08-29-2024 End: 08-29-2024 ambulatory PAPat JAMES Facility: [facility] Start: 08-22-2024 End: 08-23-2024 ambulatory Cherie X Orzech Facility:[facility] Start: 08-22-2024 End: 08-23-2024 Lab Drop off Cherie X Orzech [facility] Start: 08-22-2024 End: 08-22-2024 ambulatory Barbara JOHNSTON Facility:[facility] Start: 08-18-2024 End: 08-18-2024 ambulatory JOELLEN TY [facility] Start: 08-15-2024 End: 08-15-2024 ambulatory Brian Avalos MD Work Phone: [facility] Work Phone: Start: 08-15-2024 End: 08-15-2024 Patient encounter procedure Brian Avalos MD Work Phone: [facility] Work Phone: Start: 08-10-2024 End: 08-10-2024 Patient encounter procedure Brian Avalos MD Work Phone: [facility] [place] Work Phone: Start: 08-10-2024 End: 08-10-2024 ambulatory Brian Avalos MD Work Phone: [facility] Work Phone: Start: 08-08-2024 End: 08-08-2024 Lab Drop off CLAIRE JAMES [facility] Start: 08-08-2024 End: 08-08-2024 ambulatory CLAIRE JAMES Facility:[facility] Start: 07-14-2024 End: 07-14-2024 Emergency department patient visit Brian Avalos MD Work Phone: [facility]-Emergency Room Work Phone: Start: 07-13-2024 End: 07-13-2024 Bamboo flowsheet Nasir Ward VP RHEUMATOLOGY Work Phone: [facility] Start: 07-13-2024 End: 07-13-2024 Bamboo flowsheet Nasir Ward VP RHEUMATOLOGY Work Phone: [facility] Start: 07-13-2024 End: 07-13-2024 Office outpatient visit 15 minutes Nasir Ward VP RHEUMATOLOGY Work Phone: [facility] Comment on above: Stage 3a chronic kid joe disease (HCC) (CMS/HCC) (Primary Dx); Lumbar stenosis with neurogenic claudication; Mixed hyperlipidemia (CMS/HCC); Primary hypertension (CMS/HCC) Start: 07-13-2024 End: 07-13-2024 ambulatory NASIR WARD Not Available Start: 04-21-2024 End: 04-21-2024 Bamboo flowsheet Nasir Ward VP RHEUMATOLOGY Work Phone: [facility] Start: 04-21-2024 End: 04-21-2024 Bamboo flowsheet Nasir Ward VP RHEUMATOLOGY Work Phone: [facility] Start: 04-21-2024 End: 04-21-2024 Office outpatient visit 15 minutes Nasir Ward VP RHEUMATOLOGY Work Phone: [facility] Comment on above: Mixed hyperlipidemia (CMS/HCC) (Primary Dx); Primary hypertension (CMS/HCC); Stage 3a chronic kidney disease (HCC) (CMS/HCC) Start: 04-21-2024 End: 04-21-2024 ambulatory NASIR WARD Not Available Start: 04-18-2024 End: 04-18-2024 ambulatory Barbara JOHNSTON Facility:[facility] Start: 04-18-2024 End: 04-18-2024 Patient encounter procedure Barbara JOHNSTON [facility] Start: 04-07-2024 End: 04-07-2024 Lab Drop off Karime Gunderson [facility] Start: 04-07-2024 End: 04-07-2024 ambulatory Karime J Galea Facility:[facility] Start: 04-07-2024 End: 04-07-2024 Patient encounter procedure Karime J Galea [facility] Start: 02-29-2024 End: 02-29-2024 ambulatory PHYSICIAN NO [facility] Work Phone: Start: 02-29-2024 End: 02-29-2024 Patient encounter procedure PHYSICIAN NO [facility] Work Phone: Start: 02-25-2024 End: 02-25-2024 Patient encounter procedure PHYSICIAN NO [facility] [place] Work Phone: Start: 02-25-2024 End: 02-25-2024 ambulatory PHYSICIAN AKIRA WHATLEY [facility] Work Phone: Start: 02-18-2024 End: 02-18-2024 Refill Sugar Wellington MA [facility] Comment on above: Primary hypertension (CMS/HCC) Start: 02-02-2024 End: 02-02-2024 Refill Sugar Wellington MA [facility] Comment on above: Primary hypertension (CMS/HCC) Start: 01-20-2024 End: 01-20-2024 Office outpatient visit 25 minutes Nasir Ward VP RHEUMATOLOGY Work Phone: [facility] Comment on above: Primary hypertension (CMS/HCC) (Primary Dx); Coronary artery disease involving [place] coronary artery of [place] heart without angina pectoris (CMS/HCC); Stage 3a chronic kidney disease (HCC) (CMS/HCC); Gastroesophageal reflux disease without esophagitis; Tobacco abuse; Prostate cancer (CMS/HCC); Benign prostatic hyperplasia with lower urinary tract symptoms, symptom details unspecified Start: 01-20-2024 End: 01-20-2024 ambulatory NASIR WARD Not Available Start: 01-20-2024 End: 01-20-2024 Bamboo flowsheet Nasir Ward VP RHEUMATOLOGY Work Phone: [facility] Start: 01-20-2024 End: 01-20-2024 Bamboo flowsheet Nasir Ward VP RHEUMATOLOGY Work Phone: [facility] Start: 01-12-2024 End: 01-12-2024 ambulatory [facility] Start: 12-15-2023 End: 12-15-2023 Patient encounter procedure Hyun Nazario MD Work Phone: Radiation Oncology Comment on above: Prostate cancer (HCC ) (Primary Dx); Stage 3 chronic kidney disease, unspecified whether stage 3a or 3b CKD (HCC) Start: 12-08-2023 End: 12-08-2023 ambulatory SHAIKH DOTTY Not Available Start: 12-02-2023 End: 12-02-2023 ambulatory [facility] Start: 11-17-2023 End: 11-17-2023 Evaluation and management of inpatient [facility] Start: 11-17-2023 End: 11-18-2023 Evaluation and management of inpatient [facility] Start: 11-05-2023 End: 11-05-2023 Encounter for other preprocedural examination [facility] Start: 11-05-2023 End: 11-05-2023 ambulatory [facility] Start: 10-15-2023 End: 10-15-2023 Patient encounter procedure MD Shaikh Storm Work Phone: [facility] Vascular Surgery Work Phone: Start: 10-01-2023 End: 10-01-2023 ambulatory MD Shaikh Storm Work Phone: [facility] Work Phone: Start: 10-01-2023 End: 10-01-2023 Patient encounter procedure MD Shaikh Storm Work Phone: [facility] [place] Work Phone: Start: 09-28-2023 End: 09-28-2023 ambulatory SHAIKH DOTTY Not Available Start: 09-18-2023 End: 09-18-2023 ambulatory Barbara JOHNSTON Facility:[facility] Start: 09-18-2023 End: 09-18-2023 Patient encounter procedure Barbara JOHNSTON [facility] Start: 09-15-2023 Non-patient / Non-visit MD Yahaira Storm Work Phone: [facility] Work Phone: Start: 09-03-2023 End: 09-03-2023 ambulatory [facility] Start: 09-03-2023 End: 09-03-2023 ambulatory [facility] Start: 09-02-2023 End: 09-02-2023 ambulatory [facility] Start: 08-18-2023 End: 08-18-2023 Office outpatient visit 25 minutes Chaim Grayson DO Work Phone: [facility] Comment on above: Hypertension, unspec ified type; Mixed hyperlipidemia; Bilateral carotid artery disease, unspecified type (CMS/HCC); History of SC (myocardial infarction); BMI 28.0-28.9,adult; ASHD (arteriosclerotic heart disease); PVD (peripheral vascular disease) (CMS/HCC); Smoker; Chest pain, unspecified type Start: 08-10-2023 End: 08-11-2023 ambulatory Adalid Will MD Facility: [facility] Start: 07-07-2023 End: 07-07-2023 ambulatory CLAIRE JAMES Facility[facility] Start: 06-18-2023 End: 06-19-2023 ambulatory [facility] Start: 06-18-2023 End: 06-18-2023 Subsequent hospital visit by physician Tram Jama Stress Room 1 [facility] Start: 06-12-2023 End: 06-13-2023 ambulatory JOSE NICHOLS Facility:[facility] Start: 06-12-2023 End: 06-12-2023 Office outpatient new 45 minutes Kodi Reynolds MD Work Phone: [facility] [place] Comment on above: Spondylolisthesis of lumbar region (Primary Dx) Start: 06-04-2023 End: 06-04-2023 Office consultation new/estab patient 80 min Chaim Grayson DO Work Phone: [facility] Comment on above: Hypertension, unspec ified type; Stage 3 chronic kidney disease, unspecified whether stage 3a or 3b CKD (CMS/HCC); Mixed hyperlipidemia; Bilateral carotid artery disease, unspecified type (CMS/HCC); Smoker; Chest pressure Start: 05-21-2023 End: 05-21-2023 ambulatory MD Shaikh Storm Work Phone: [facility] Work Phone: Start: 05-21-2023 End: 05-21-2023 Patient encounter procedure MD Shaikh Storm Work Phone: [facility]-Electrodiagnostics Work Phone: Start: 05-19-2023 Telephone encounter G Jose Nazario MD [facility] Phone[facility] Comment on above: Appointment Confirma tion Start: 05-18-2023 ambulatory Jose rinaldi DO Work Phone: [facility] Start: 05-18-2023 Patient encounter procedure Jose Nichols DO Work Phone: Spine Medicine Comment on above: Consultation with a surgeon Start: 04-21-2023 End: 04-21-2023 ambulatory CLAIRE JAMES Facility:[facility] Start: 04-21-2023 End: 04-21-2023 Lab Drop off CLAIRE JAMES [facility] Start: 04-21-2023 End: 04-21-2023 Patient encounter procedure CLAIRE JAMES [facility] Start: 04-16-2023 Office outpatient vi sit 15 minutes Jose Martin Mchugh [facility] Vascular Surgery Start: 04-16-2023 End: 04-16-2023 ambulatory MD Shaikh Storm Work Phone: [facility] [employer] Other Start: 04-16-2023 End: 04-16-2023 Patient encounter procedure MD Shaikh Storm Work Phone: [facility]-Ultrasound [facility] Start: 03-23-2023 End: 03-23-2023 Admission to same day surgery center MD Shaikh Storm Work Phone: [facility]-Interventional Radiology Work Phone: Start: 03-23-2023 End: 03-23-2023 ambulatory MD Shaikh Storm Work Phone: [facility] Work Phone: Start: 03-12-2023 End: 03-12-2023 ambulatory Jose Martin Mchugh Other [facility] [employer] Other Start: 03-12-2023 Office outpatient vi sit 25 minutes Jose Martin Mchugh [facility] Vascular Surgery Start: 03-12-2023 Telephone encounter Theo Thakkar [facility] Nephrology Start: 03-09-2023 End: 03-09-2023 ambulatory MD Shaikh Storm Work Phone: [facility] Work Phone: Start: 03-09-2023 End: 03-09-2023 Patient encounter procedure MD Shaikh Storm Work Phone: [facility]-Lab [facility] [place] Work Phone: Start: 03-05-2023 End: 03-05-2023 ambulatory MD Shaikh Storm Work Phone: [facility] Work Phone: Start: 03-05-2023 End: 03-05-2023 Patient encounter procedure MD Shaikh Storm Work Phone: [facility]-Ultrasound [facility] [place] Work Phone: Start: 03-04-2023 End: 03-04-2023 ambulatory MD Shaikh Storm Work Phone: [facility] Work Phone: Start: 03-04-2023 End: 03-04-2023 Patient encounter procedure MD Shaikh Storm Work Phone: [facility]-Ultrasound [facility] [place] Work Phone: Start: 02-20-2023 End: 02-20-2023 Admission to same day surgery center MD Shaikh Storm Work Phone: [facility]Surgery Center [facility] [place] Start: 02-18-2023 End: 02-18-2023 ambulatory Bonnie Tan Other [facility] [employer] Other Start: 02-18-2023 Office outpatient ne w 60 minutes Bonnie Tan [facility] Vascular Surgery Start: 02-11-2023 End: 02-11-2023 Patient encounter procedure CLAIRE JAMES [facility] Start: 02-06-2023 End: 02-06-2023 ambulatory MD Shaikh Storm Work Phone: [facility] Work Phone: Start: 02-06-2023 End: 02-06-2023 Departed Referred MD Shaikh Storm Work Phone: [facility] Dfq-Fdc-Etruzyep Testing Work Phone: Start: 02-06-2023 End: 02-06-2023 Patient encounter procedure MD Shaikh Storm Work Phone: [facility] Cpv-Tpv-Zgaoqyjn Testing Work Phone: Start: 01-20-2023 Telephone encounter Constance BROWN H ematology/Oncology Comment on above: Social Work Services Start: 01-19-2023 End: 01-19-2023 Patient encounter procedure Jose Nichols DO Work Phone: Spine Medicine Comment on above: Spinal stenosis, 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); Foraminal stenosis of lumbar region; Peripheral artery disease (HCC); Prostate cancer (HCC) Start: 01-15-2023 Telephone encounter Jose Nichols DO Work Phone: [address] [place] [address] Comment on above: Orders; Appointment Start: 01-09-2023 End: 01-09-2023 ambulatory MD Shaikh Storm Work Phone: [facility] Work Phone: Start: 01-09-2023 End: 01-09-2023 Patient encounter procedure MD Shaikh Storm Work Phone: [facility]-Lab [facility] [place] Work Phone: Start: 01-06-2023 Telephone encounter Hyun Nazario MD Work Phone: Radiation Oncology Comment on above: Orders Start: 01-05-2023 Telephone encounter Evelyn Chamberlain RN [facility] INTERVENTIONAL RADIOLOGY Comment on above: Patient Question; Ap pointment Start: 12-03-2022 End: 12-03-2022 Patient encounter procedure CLAIRE JAMES [facility] Start: 11-18-2022 Telephone encounter Hyun Nazario MD Work Phone: [facility] Comment on above: Referral Information [...] SHAIKH Geri STORM Facility:[facility] Start: 10-09-2022 End: 05-12-2023 ambulatory ALBERTO VALLEY . Facility:[facility] Start: 07-15-2022 ambulatory RUT Avila ty:[facility] Start: 06-06-2022 Telephone encounter Constance BROWN [...] End: 05-16-[address] HOSEA OLIVA . Facility:[facility] Start: 05-09-2022 End: 05-09-2022 ambulatory MD Shaikh Storm Work Phone: [facility] Work Phone: Start: 05-09-2022 End: 05-09-2022 Patient encounter procedure MD Shaikh Storm Work Phone: [facility]-Lab [facility] [place] Start: 04-30-2022 Social Work Constance BROWN Hematolo gy/Oncology Start: 04-23-2022 End: 04-23-2022 ambulatory MD Shaikh Storm Work Phone: [facility] Work Phone: Start: 04-23-2022 End: 04-23-2022 Patient encounter procedure MD Shaikh Storm Work Phone: [facility]-Lab [facility] [place] Start: 04-23-2022 Radiation Oncology Note G Mahamed [...] 03-31-2022 End: 03-31-2022 Social Work Constance Durand [facility] Hematology/Oncology Comment on above: Malignant neoplasm o f prostate (HCC) (Primary Dx) Start: 03-27-2022 End: 03-27-2022 Patient encounter procedure Lab/[facility] [place] Work Phone: Radiation Oncology Comment on above: [...] . Facility: Start: 03-12-2022 Patient encounter procedure Hyun Nazario MD Work Phone: [facility] Start: 03-12-2022 Radiation Oncology Note Hyun Nazario MD Work Phone: Radiation Oncology Comment on above: Treatment Planning Start: 03-12-2022 End: 03-12-2022 Social Work Constance BROOKSW Hematology/Oncology Start: 03-04-2022 Telephone encounter Constance BROOKSW H ematology/Oncology Comment on above: Social Work Services Start: 03-03-2022 End: 03-03-2022 Patient encounter procedure Hyun Nazario MD Work Phone: Radiation Oncology Comment on above: Malignant neoplasm o f prostate (HCC) (Primary Dx) Start: 02-25-2022 Telephone encounter Hyun Jose Nazario MD Work Phone: Radiation Oncology Comment on above: Patient Update; Appo intment Start: 02-13-2022 ambulatory Facility:1 [id number] Start: 02-13-2022 End: 02-13-2022 Patient encounter procedure Zeinab Justice [facility] Start: 02-11-2022 End: 02-11-[address] HOSEA OLIVA . Facility:[facility] Start: 02-09-2022 Encounter for preprocedural laboratory examination DR HOSEA OLIVA . [facility] Start: 02-07-2022 Telephone encounter Hyun Nazario MD [...] BERNIE HOBBS . Facility:[facility] Start: 01-07-2022 End: 01-07-[address] HOSEA OLIVA . Facility:[facility] Start: 12-26-2021 End: 12-27-2021 ambulatory BERNIE HOBBS . Facility:[facility] Start: 12-18-2021 Telephone encounter Hyun Nazario MD Work Phone: Radiation Oncology Comment on above: Patient Update Start: 12-17-2021 End: 12-17-[address] HOSEA OLIVA . Facility:[facility] Start: 12-12-2021 End: 12-13-2021 ambulatory BERNIE HOBBS . Facility:[facility] Start: 12-10-2021 End: 12-10-2021 Patient encounter procedure Hyun Jose Nazario MD Work Phone: Radiation Oncology Comment on above: Malignant neoplasm o f prostate (HCC) (Primary Dx) Start: 11-04-2021 End: 11-04-2021 Patient encounter procedure Barbaraterry JOHNSTON [facility] Start: 10-24-2021 End: 10-24-2021 ambulatory Theo Thakkar Other [employer] Other Start: 10-24-2021 Office outpatient ne w 45 minutes Theo Vivian [facility] Procedures Date Procedure Procedure Detail Performing Clinician Start: 01-12-2025 [facility] PSA SERPL[facility] Gene alvin External Data Provider Start: 08-18-2024 Follow-up visit Follow-up JOELLEN BENÍTEZ Start: 08-10-2024 Urine culture Brian doyle MD Work Phone: Start: 02-25-2024 Urine culture PHYSICIAN NO FAMILY Start: 10-31-2023 Procedure on back Wilner JOHNSTON Start: 08-18-2023 Ecg routine ecg w/le ast 12 lds w/i&r Chaim Grayson DO Work Phone: Start: 06-18-2023 NUCLEAR STRESS TEST NGOZI GRAYSON Start: 06-18-2023 Cv strs tst xers&/or rx cont ecg trcg only Chaim Grayson DO Work Phone: Start: 06-04-2023 Ecg routine ecg w/le ast [...] cystoscopy Barbara JOHNSTON Bilateral cataracts (disorder) CLAIRE JAMES Colonoscopy Barbara JOHNSTON Endarterectomy CLAIRE Robins Procedure on back Barbara ROWE Plan of Treatment Date Care Activity Detail Author Start: 11-17-2026 Diabetes Screening Diabetes Screening [facility] Start: 06-10-2026 Diabetes Screening Diabetes Screening [facility] Start: 08-30-2025 End: 08-30-2025 Patient encounter procedure 08/30/2025 10:00 AM EDT Office Visit [facility] [address] [place] [phone] Chaim Grayson DO [address] [place] [address] [facility] Start: 04-21-2025 ambulatory Ambulatory Facility:[facility] Start: 04-20-2025 End: 07-20-2025 Prostate specific Ag [Mass/volume] in Serum or Plasma PROSTATE-SPECIFIC ANTIGEN DIAGNOSTIC Lab Routine Cancer of prostate w/med recur risk (T2b-c or Nicola 7 or PSA 10-20) (HCC) Expected: 04/20/2025, Expires: 07/20/2025 [facility] Work Phone: Comment on above: Expected: 04/20/2025, Expires: Start: 04-20-2025 End: 04-20-2025 Patient encounter procedure 04/20/2025 9:45 AM EST Office Visit Radiation Oncology [address] [address] Hyun Nazario MD [address] [place] [address] 3 month follow up Radiation Oncology Comment on above: 3 month follow up Start: 01-30-2025 Influenza vaccination [facility] Start: 12-14-2024 End: 03-15-2025 Prostate specific Ag [Mass/volume] in Serum or Plasma PROSTATE-SPECIFIC ANTIGEN DIAGNOSTIC Lab Routine Prostate cancer (HCC) Expected: 12/14/2024, Expires: 03/15/2025 [facility] Work Phone: Comment on above: Expected: 12/14/2024, Expires: Start: 12-13-2024 End: 12-13-2024 Patient encounter procedure 12/13/2024 1:15 PM EDT Office Visit Radiation Oncology [address] [place] [address] Hyun Nazario MD [address] [place] [address] 1 yr rv Radiation Oncology Comment on above: 1 yr rv Start: 12-07-2024 Medicare Annual Wellness (AWV) Medicare Annual Wellness (AWV) [facility] Start: 12-06-2024 End: 12-06-2024 Patient encounter procedure 12/06/2024 1:00 PM EDT Office Visit [facility] [address] [place] [address] Lab [facility] Comment on above: Lab Start: 11-17-2024 Complete blood count Hemoglobin/Hematocrit [facility] Start: 11-17-2024 Creatinine measurement Serum Creatinine [facility] Start: 09-29-2024 End: 09-29-2024 Patient encounter procedure 09/29/2024 10:00 AM EDT Office Visit [facility] [address] [place] [phone] Nasir Ward NP [address] [place] [address] [facility] Start: 08-18-2024 End: 08-18-2024 Patient encounter procedure 08/18/2024 10:00 AM EDT Office Visit [facility] [address] [place] [phone] Chaim Grayson DO [address] [place] [address] [facility] Start: 08-10-2024 Bacteria identified in Urine by Culture Urine Culture [facility] Start: 08-10-2024 Urine culture [facility] Start: 07-13-2024 End: 07-13-2024 Patient encounter procedure [facility] Comment on above: Arrived Start: 06-10-2024 Creatinine measurement Serum Creatinine [facility] Start: 06-01-2024 Advance Directive Discussion Advance Directive Discussion [facility] Start: 06-01-2024 Medicare Advantage Annual Wellness Visit Medicare Advantage Annual Wellness Visit [facility] Start: 04-21-2024 End: 04-21-2024 Patient encounter procedure [facility] Comment on above: Arrived Start: 02-25-2024 Bacteria identified in Urine by Culture [facility] Start: 01-31-2024 Covid-19 Vaccine () Covid-19 Vaccine () [facility] Start: 01-31-2024 Influenza vaccination Influenza Vaccine (#1) 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 (CMS/HCC); Stage 3a chronic kidney disease (HCC) (CMS/HCC); Gastroesophageal reflux disease without esophagitis [facility] Comment on above: Primary hypertension (CMS/HCC) (Primary Dx); Coronary artery disease involving tazlina coronary artery of tazlina heart without angina pectoris (CMS/HCC); Stage 3a chronic kidney disease (HCC) (CMS/HCC); Gastroesophageal reflux disease without esophagitis Start: 10-15-2023 Ankle brachial pressure index [facility] Start: 08-18-2023 End: 08-18-2023 Patient encounter procedure 08/18/2023 11:10 AM EDT Office Visit [facility] [address] [place] [phone] Chaim Grayson DO [address] [place] [address] [facility] Start: 07-08-2023 End: 07-08-2023 Clinical Support 07/08/2023 10:30 AM EST Clinical Support [facility] [address] [facility] [place] [address] [facility] Start: 06-04-2023 End: 06-04-2024 Alanine aminotransferase [Enzymatic activity/volume] in Serum or Plasma by With P-5'-P Alanine Aminotransferase Lab Routine Hypertension, unspecified type Bilateral carotid artery disease, unspecified type (CMS/HCC) Expected: 06/04/2023 (Approximate), Expires: 06/04/2024 [facility] Work Phone: Comment on above: Expected: 06/04/2023 (Approximate), Expi res: 06/04/2024 Start: 06-04-2023 End: 06-04-2024 Aspartate aminotransferase [Enzymatic activity/volume] in Serum or Plasma by With P-5'-P Aspartate Aminotransferase Lab Routine Hypertension, unspecified type Bilateral carotid artery disease, unspecified type (CMS/HCC) Expected: 06/04/2023 (Approximate), Expires: 06/04/2024 [facility] Work Phone: Comment on above: Expected: 06/04/2023 (Approximate), Expi res: 06/04/2024 Start: 06-04-2023 End: 06-04-2024 Basic metabolic 2000 panel - Serum or Plasma Basic Metabolic Panel Lab Routine Hypertension, unspecified type Mixed hyperlipidemia Expected: 06/04/2023 (Approximate), Expires: 06/04/2024 [facility] Work Phone: Comment on above: Expected: 06/04/2023 (Approximate), Expi res: 06/04/2024 Start: 06-04-2023 End: 06-04-2024 Lipid 1996 panel - Serum or Plasma Lipid Panel Lab Routine Mixed hyperlipidemia Expected: 06/04/2023 (Approximate), Expires: 06/04/2024 [facility] Work Phone: Comment on above: Expected: 06/04/2023 (Approximate), Expi res: 06/04/2024 Start: 06-04-2023 End: 06-04-2025 NM Heart Perfusion W stress and W radionuclide IV Nuclear Stress Test Cardiac Nuclear Medicine Routine Hypertension, unspecified type Bilateral carotid artery disease, unspecified type (CMS/HCC) Chest pressure Expected: 06/04/2023 (Approximate), Expires: 06/04/[address] [facility] Service Area Work Phone: Comment on above: Expected: 06/04/2023 (Approximate), Expi res: 06/04/2025 Start: 06-01-2023 Advance Directive Discussion Advance Directive Discussion [facility] Start: 06-01-2023 Behavioral Health Screening Behavioral Health Screening [facility] Start: 06-01-2023 Depression Assessment Depression Assessment [facility] Start: 05-20-2023 End: 07-20-2023 Prostate specific Ag [Mass/volume] in Serum or Plasma PSA/PROSTSPECAG DIAG Lab Routine History of prostate cancer Expected: 05/20/2023, Expires: 07/20/2023 [facility] Work Phone: Comment on above: Expected: 05/20/2023, Expires: Start: 03-27-2023 Complete blood count Hemoglobin/Hematocrit [facility] Start: 03-27-2023 HEMOGLOBIN/HEMATOCRIT HEMOGLOBIN/HEMATOCRIT [facility] Start: 03-23-2023 [facility] Start: 03-09-2023 Bacteria identified in Urine by Culture [facility] Start: 03-05-2023 Pulse volume recorder plethysmography [facility] Start: 02-20-2023 End: 02-20-2023 [facility] Start: 01-30-2023 Covid-19 Vaccine ( season) Covid-19 Vaccine () [facility] Start: 01-30-2023 Influenza vaccination [facility] Start: 06-03-2022 End: 08-03-2022 Bacteria identified in Urine by Culture URINE CULTURE Microbiology Routine Hematuria, unspecified type Malignant neoplasm of prostate (HCC) Expected: 06/03/2022 (Approximate), Expires: 08/03/2022 [facility] Work Phone: Comment on above: Expected: 06/03/2022 (Approximate), Expi res: 08/03/2022 Start: 06-03-2022 End: 08-03-2022 UA DIP B/O UA DIP B/O Lab Routine Hematuria, unspecified type Malignant neoplasm of prostate (HCC) Expected: 06/03/2022 (Approximate), Expires: 08/03/2022 [facility] Work Phone: Comment on above: Expected: 06/03/2022 (Approximate), Expi res: 08/03/2022 Start: 06-01-2022 ADVANCE DIRECTIVE DISCUSSION ADVANCE DIRECTIVE DISCUSSION [facility] Start: 06-01-2022 DEPRESSION ASSESSMENT DEPRESSION ASSESSMENT [facility] Start: 04-21-2022 End: 06-21-2022 Prostate specific Ag [Mass/volume] in Serum or Plasma PSA/PROSTSPECAG DIAG Lab Routine Malignant neoplasm of prostate (HCC) Expected: 04/21/2022, Expires: 06/21/2022 [facility] Work Phone: Comment on above: Expected: 04/21/2022, Expires: 3 Start: 03-27-2022 End: 03-18-2023 CBC W Auto Differential panel - Blood CBC + DIFF Lab Routine Malignant neoplasm of prostate (HCC) Expected: 03/27/2022, Expires: 03/18/2023 [facility] Work Phone: Comment on above: Expected: 03/27/2022, Expires: 3 Start: 01-30-2022 Influenza vaccination INFLUENZA (#1) [facility] Start: 06-01-2021 ADVANCE DIRECTIVE DISCUSSION ADVANCE DIRECTIVE DISCUSSION [facility] Start: 06-01-2021 DEPRESSION ASSESSMENT DEPRESSION ASSESSMENT [facility] Start: 12-23-2020 COVID-19 VACCINE (3 - Booster for Moderna series) COVID-19 VACCINE (3 - Booster for Moderna series) [facility] Start: 09-20-2020 COVID-19 VACCINE (3 - Booster for Moderna series) COVID-19 VACCINE (3 - Booster for Moderna series) [facility] Start: 09-20-2020 COVID-19 VACCINE (3 - Moderna series) COVID-19 VACCINE (3 - Moderna series) [facility] Start: 09-20-2020 COVID-19 VACCINE (4 - Booster) COVID-19 VACCINE (4 - Booster) [facility] Start: 09-20-2020 COVID-19 Vaccine (4 - Moderna series) COVID-19 Vaccine (4 - Moderna series) [facility] Start: 2020 RSV High Risk: (Elderly (60+) or Population) (1 - 1-dose 75+ series) RSV High Risk: (Elderly (60+) or Population) (1 - 1-dose 75+ series) [facility] Start: 2020 RSV Vaccine (1 - 1-dose 75+ series) RSV Vaccine (1 - 1-dose 75+ series) [facility] Start: 2005 RSV Vaccine (1 - 1-dose 60+ series) RSV Vaccine (1 - 1-dose 60+ series) [facility] Start: 1995 Influenza vaccination LUNG CANCER SCREENING [facility] Start: 1995 Screening for malignant neoplasm of lung Lung Cancer Screening [facility] Start: 1995 SHINGRIX VACCINE (1 of 2) SHINGRIX VACCINE (1 of 2) [facility] Start: 1995 Zoster Vaccines (1 of 2) Zoster Vaccines (1 of 2) [facility] Start: 1990 DIABETES SCREEN DIABETES SCREEN [facility] Start: 1990 Diabetes Screening Diabetes Screening [facility] Start: 1967 DTaP/Tdap/Td Vaccines (1 - Tdap) DTaP/Tdap/Td Vaccines (1 - Tdap) [facility] Start: 1964 Pneumococcal vaccination Pneumococcal Vaccine (1 of 2 - PCV) [facility] Start: 1964 Pneumococcal Vaccine: 50+ (1 of 2 - PCV) Pneumococcal Vaccine: 50+ (1 of 2 - PCV) [facility] Start: 1964 Pneumococcal Vaccine: 65+ Years (1 of 2 - PCV) Pneumococcal Vaccine: 65+ Years (1 of 2 - PCV) [facility] Start: 1964 Urine microalbumin profile [facility] Start: 1964 Urine screening for protein CKD: Urine Protein Screening [facility] Start: 1963 ANNUAL PCP TEAM CHRONIC DISEASE VISIT ANNUAL PCP TEAM CHRONIC DISEASE VISIT [facility] Start: 1963 Anxiety Screening Anxiety Screening [facility] Start: 1963 Creatinine measurement Serum Creatinine [facility] Start: 1963 Depression Screening Depression Screening [facility] Start: 1963 HEPATITIS C SCREENING HEPATITIS C SCREENING [facility] Start: 1963 Hepatitis C screening Hepatitis C Screening [facility] Start: 1963 SERUM CREATININE SERUM CREATININE [facility] Start: 1957 Adult depression screening assessment DEPRESSION SCREENING [facility] Start: 1951 Pneumococcal Vaccine: 65+ (1 - PCV) Pneumococcal Vaccine: 65+ (1 - PCV) [facility] Start: 1951 Pneumococcal Vaccine: 65+ (1 of 2 - PCV) Pneumococcal Vaccine: 65+ (1 of 2 - PCV) [facility] Start: 1951 Pneumococcal Vaccine: 65+ Years (1 - PCV) Pneumococcal Vaccine: 65+ Years (1 - PCV) [facility] Start: 1951 Pneumococcal Vaccine: 65+ Years (1 of 2 - PCV) Pneumococcal Vaccine: 65+ Years (1 of 2 - PCV) [facility] Start: 1951 PNEUMOCOCCAL: 65+ (1 - PCV) PNEUMOCOCCAL: 65+ (1 - PCV) [facility] Start: 1945 Lipid panel Lipid Panel [facility] Start: 1945 Medicare Annual Wellness Visit Medicare Annual Wellness Visit (AWV) [facility] CBC W Auto Different ial panel - Blood CBC and differential Lab Routine Stage 3a chronic kidney disease (HCC) (CMS/HCC) Ordered: 07/13/2024 [facility] Work Phone: Comment on above: Ordered: 07/13/2024 Comprehensive metabo lic 2000 panel - Serum or Plasma Comprehensive metabolic panel Lab Routine Stage 3a chronic kidney disease (HCC) (CMS/HCC) Ordered: 07/13/2024 [facility] Comment on above: Ordered: 07/13/2024 CT SIM PLANNING RADI ATION ONCOLOGY CT SIM PLANNING RADIATION ONCOLOGY Radiology Routine Malignant neoplasm of prostate (HCC) Ordered: 03/03/2022 [facility] Work Phone: Comment on above: Ordered: 03/03/2022 End: 12-19-2023 Mri spinal canal lumbar w/o & w/contr matrl MRI LUMBAR SPINE WO/W IVCON Radiology Routine Spinal stenosis of lumbar region, unspecified whether neurogenic claudication present 1 Occurrences starting 11/19/2022 until 12/19/2023 [facility] Work Phone: Comment on above: 1 Occurrences starting 11/19/2022 until 12/19/2023 End: 12-21-2023 Mri spinal canal lumbar w/o & w/contr matrl MRI LUMBAR SPINE WO/W IVCON Radiology Routine Spinal stenosis of lumbar region without neurogenic claudication 1 Occurrences starting 11/21/2022 until 12/21/2023 [facility] Work Phone: Comment on above: 1 Occurrences starting 11/21/2022 until 12/21/2023 End: 02-05-2024 Mri spinal canal lumbar w/o & w/contr matrl MRI LUMBAR SPINE WO/W IVCON Radiology Routine Spinal stenosis of lumbar region, unspecified whether neurogenic claudication present 1 Occurrences starting 01/06/2023 until 02/05/2024 [facility] Work Phone: Comment on above: 1 Occurrences starting 01/06/2023 until 02/05/2024 Patient Education [facility] Work Phone: Patient referral [facility] Work Phone: Renal function 1999 panel - Serum or Plasma [facility] Renal function 1999 panel - Serum or Plasma [facility] [place] Immunizations Immunization Date Immunization Notes Care Provider Fernanda adkins 07-26-2020 SARS-CoV-2 (COVID-19 ) [id number] vaccine Barbara JOHNSTON [facility] 06-28-2020 SARS-CoV-2 (COVID-19 ) mRNA-1273 vaccine Barbara JOHNSTON [facility] 06-25-2020 COVID-19 mRNA-1273 (Moderna) MD Shaikh Storm Work Phone: [facility] NEGATED: Highlighted row has not occurred!04-21-2023 influenza virus vaccine, unspecified formulation CLAIRE JAMES [facility] Payers Date Payer Category Payer Unknown [id number] 2024 Unknown [id number] 2024 Unknown [id number] 2022 Medicare (Managed Care) 1.2. [id number]. [id number] 2022 Private Health Insurance [id number] .[id number]. [id number] 2021 Medicare HUMANA MEDICARE HUMANA GOLD PLUS [id number] 2021-Present [phone] [address] [address] [place] [address] O [id number] 1.2.840.396634.1.13.159.2. 7.3.728129.315 2021 Medicare [id number]. 1.13.159.2. [id number] 1959 Private Health Insurance [id number] 2.16.840.1.410468.19 1959 Self-pay [id number] 1945 Unknown [id number] 2.16.840.1.200611.3.579.2. 356 1945 Unknown [id number] 2.16.840.1.166854.3.579.2. 593 1945 Unknown [id number] 2.16.840.1.516251.3.579.2. 593 1945 Unknown [id number] 2.16.840.1.688426.3.579.2. 593 1945 Unknown [id number] 2.16.840.1.263278.3.579.2. 593 1945 Unknown [id number] 2.16.840.1.251185.3.579.2. 593 1945 Unknown [id number] 2.16.840.1.345601.3.579.2. 593 1945 Unknown [id number] 2.16.840.1.867420.3.579.2. 593 1945 Unknown [id number] 2.16.840.1.623772.3.579.2. 593 1945 Unknown [id number] 2.16.840.1.727083.3.579.2. 593 1945 Unknown [id number] 2.16.840.1.329173.3.579.2. 593 1945 Unknown [id number] 2.16.840.1.721912.3.579.2. 593 1945 Unknown [id number] 2.16.840.1.846392.3.579.2. 593 1945 Unknown [id number] 2.16.840.1.008333.3.579.2. 593 1945 Unknown [id number] 2.16.840.1.615169.3.579.2. 593 1945 Unknown [id number] 2.16.840.1.785048.3.579.2. 1246 1945 Unknown [id number] 2.16.840.1.611698.3.579.2. 1246 1945 Unknown [id number] 2.16.840.1.360511.3.579.2. 1246 1945 Unknown [id number] 2.16.840.1.699091.3.579.2. 1246 1945 Unknown [id number] 2.16.840.1.884064.3.579.2. 1246 1945 Unknown [id number] 2.16.840.1.466257.3.579.2. 196 1945 Unknown [id number] 2.16.840.1.429369.3.579.2. 727 1945 Unknown [id number] 2.16.840.1.415345.3.579.2. 727 1945 Unknown [id number] 2.16.840.1.201670.3.579.2. 727 1945 Unknown [id number] 2.16.840.1.383024.3.579.2. 727 1945 Unknown [id number] 2.16.840.1.696319.3.579.2. 727 1945 Unknown [id number] 2.16.840.1.235753.3.579.2. 727 1945 Unknown [id number] 2.16.840.1.802984.3.579.2. 727 1945 Unknown [id number] 2.16.840.1.550635.3.579.2. 1259 1945 Unknown [id number] 2.16.840.1.399009.3.579.2. 1259 1945 Unknown [id number] 2.16.840.1.121262.3.579.2. 1259 1945 Unknown [id number] 2.16.840.1.753566.3.579.2. 1259 1945 Unknown [id number] 2.16.840.1.338434.3.579.2. 1259 1945 Unknown [id number] 2.16.840.1.462298.3.579.2. 727 1945 Unknown [id number] 2.16.840.1.661567.3.579.2. 727 1945 Unknown [id number] 2.16.840.1.777240.3.579.2. 727 1945 Unknown [id number] 2.16.840.1.257424.3.579.2. 727 1945 Unknown [id number] 2.16.840.1.051373.3.579.2. 72 1945 Unknown [id number] 2.16.840.1.707342.3.579.2. 727 1945 Unknown [id number] 2.16.840.1.170601.3.579.2. 727 1945 Unknown [id number] 2.16.840.1.315105.3.579.2. 1244 1945 Unknown [id number] 2.16.840.1.723279.3.579.2. 727 Unknown HCAP/HFA/FAP Active [id number] Unknown [id number] 2.16.840.1.649241.3.579.2. 531 Unknown [id number] 2.16.840.1.010805.3.579.2. 531 Unknown [id number] 2.16.840.1.639039.3.579.2. 531 Social History Date Type Detail Facility Start: 11-04-2021 End: 08-29-2024 Tobacco smoking status Heavy tobacco smoker (finding) [facility] Other Start: 11-26-2021 End: 07-14-2024 Tobacco smoking status Smoker (finding) [facility] Start: 05-13-2022 End: 11-18-2022 Sex Assigned At Male ic[facility] [employer] [facility] Other Start: 12-10-2021 End: 03-18-2022 Tobacco smoking status NHIS Smokes tobacco daily [facility] Start: 12-10-2021 End: 11-18-2022 Cigarettes smoked current (pack per day) - Reported 1 [facility] Start: 12-10-2021 End: 03-18-2022 Tobacco use and exposure Smokeless tobacco non-user [facility] Start: 12-10-2021 End: 12-15-2023 Alcohol intake Ex-drinker (finding) [facility] Start: 12-10-2021 End: 03-18-2022 Tobacco Comment 2 ppd x 20 yrs, 1 ppd x 40 yrs [facility] Start: 1945 Sex Assigned At Not on file [facility] Start: 11-30-2021 End: 08-30-2024 Exposure to SARS-CoV-2 (event) Not sure [facility] History of tobacco use Cigarette Smoker [facility] Start: 1945 Sex Assigned At Male [facility] Start: 12-06-2021 Tobacco smoking status Never [facility] Start: 01-15-2023 Gender identity Identifies as male gender (finding) [facility] Start: 01-15-2023 Sexual orientation Heterosexual (finding) [facility] Start: 06-04-2023 Tobacco Comment Trying to quit [facility] Work Phone: History of tobacco use Passive smoker [facility] How often to you hav e a drink containing alcohol? Never [facility] In the past 12 month s, was there a time when you were not able to pay the mortgage or rent on time? No [facility] Start: 01-29-2024 Tobacco Comment Pt down to 4 per day, required to quit smoking before back surgery could be done. [facility] Start: 04-27-2023 Alcohol Comment former [facility] Start: 07-14-2024 End: 08-15-2024 Sex Male (finding) [facility] Sexual Orientation [facility] Start: 08-30-2024 Alcoholic beverage intake Lifetime non-drinker (finding) [facility] Work Phone: Medical Equipment Procedure Code Equipment Code Equipment Origin al Text Equipment Identifier Dates Angiogram, lower extremity, left Multiple peripheral artery stent, bare-metal [id number] [facility] Start: 03-23-2023 Goals Date Patient Goal Desired Activity /State Functional Status Date Assessment Result Facility 04-18-2024 Functional Status N/A [facility] 09-18-2023 Functional Status N/A [facility] 04-21-2023 Functional Status N/A [facility] 02-11-2023 Functional Status N/A [facility] 12-03-2022 Functional Status N/A [facility] Clinical Notes 10-24-2021 to 01-18-2025 Note Date & Type Note Facility 01-18-2025 Evaluation note Diagnosis Cancer of prostate w/med recur risk (T2b-c or Nicola 7 or PSA 10-20) (HCC)- Primary Malignant neoplasm of prostate documented in this encounter [facility]08-20-2025 History of Present illness Narrative* Hyun Nazario MD - 01/18/2025 9:45 AM EDT Radiation Oncology - Follow Up Note [...] TIME: 36 days. INTERVAL HISTORY: Doing well. Started taking Azo for increased nocturia, currently without significant with notable improvement. He denies dysuria. Denies fever. Denies abdominal pain. No bowel related issues. PSA HISTORY: PSA (ng/mL) Date Value 01/12/2025 1.56 12/10/2023 0.43 05/11/2023 0.43 11/17/2022 0.50 PSA. (no units) Date Value 05/09/2022 2.810 ALLERGIES No Known Allergies HYDROcodone-acetaminophen (NORCO) 5-325 mg per tablet Take 1 tablet by mouth two times a day as needed for pain. clopidogrel (PLAVIX) 75 mg tablet Take 75 mg by mouth once daily. lisinopril (ZESTRIL) 20 mg tablet Take 1 tablet by mouth once daily. pregabalin (LYRICA) 50 mg capsule Take 1 capsule by mouth two times a day. ergocalciferol, vitamin D2, (VITAMIN D2 ORAL) Take by mouth. aspirin 81 mg cap Take by mouth. pravastatin (PRAVACHOL) 10 mg tablet pravastatin 10 mg tablet amLODIPine (NORVASC) 10 mg tablet amlodipine 10 mg tablet REVIEW OF SYSTEMS: D/N = 5-6/2-4 Hematuria: none Dysuria: none Incontinence: Yes Urgency: mild Catheter use: none Medications to aid urination: y - Total AUA Score: 6 Bowel movement frequency: 1/day Bowel movement quality: normal Blood per rectum: none PHYSICAL EXAM: BP 150/75 (BP Site: Left Arm, BP Position: Sitting, BP Cuff Size: Regular Adult) Pulse 92 Temp 37 C (98.6 F) (Temporal) Resp 16 Ht 177.8 cm (5' 10 ) Wt 88.5 kg (195 lb 1.7 oz) SpO2 96% BMI 27.99 kg/m KPS: 90 General Appearance: Alert and oriented. No acute distress. Rectal exam is deferred. ASSESSMENT/PLAN: Prostate adenocarcinoma, initial PSA 9.95, biopsy [place] score 3 + 4 = 7 (grade group 2), clinical stage T1b, N0, M0, stage IIB [T1-T2, N0, M0, PSA <20, GG 2] (AJCC 8th ed.), s/pdefinitive radiation completed April 2022. 1. Prostate cancer. Clinically doing well. He has had a slight rise in PSA. Unclear significance. Recommend rechecking in 1 to 3 months. Should it continue to climb consider repeat imaging. 2. Spinal stenosis, lumbar spine. Follows with neurosurgery Signed by: Huyn Nazario MD cc: Shaikh Dotty [phone] [place] [address] * Kelly Hector MA - 01/18/2025 9:32 AM EDT AUA=6 [facility] NoteHNO ID: [id number] Author: Hyun NAZARIO MD Service: ? Author Type: Physician Type: Progress Notes Filed: 01/18/2025 09:49 Note Text: Radiation Oncology - Follow Up [...] TIME: 36 days. INTERVAL HISTORY: Doing well. Started taking Azo for increased nocturia, currently without significant with notable improvement. He denies dysuria. Denies fever. Denies abdominal pain. No bowel related issues. PSA HISTORY: PSA (ng/mL) Date Value 01/12/2025 1.56 12/10/2023 0.43 05/11/2023 0.43 11/17/2022 0.50 PSA. (no units) Date Value 05/09/2022 2.810 ALLERGIES No Known Allergies HYDROcodone-acetaminophen (NORCO) 5-325 mg per tablet Take 1 tablet by mouth two times a day as needed for pain. clopidogrel (PLAVIX) 75 mg tablet Take 75 mg by mouth once daily. lisinopril (ZESTRIL) 20 mg tablet Take 1 tablet by mouth once daily. pregabalin (LYRICA) 50 mg capsule Take 1 capsule by mouth two times a day. ergocalciferol, vitamin D2, (VITAMIN D2 ORAL) Take by mouth. aspirin 81 mg cap Take by mouth. pravastatin (PRAVACHOL) 10 mg tablet pravastatin 10 mg tablet amLODIPine (NORVASC) 10 mg tablet amlodipine 10 mg tablet REVIEW OF SYSTEMS: D/N = 5-6/2-4 Hematuria: none Dysuria: none Incontinence: Yes Urgency: mild Catheter use: none Medications to aid urination: y - Total AUA Score: 6 Bowel movement frequency: 1/day Bowel movement quality: normal Blood per rectum: none PHYSICAL EXAM: BP 150/75 (BP Site: Left Arm, BP Position: Sitting, BP Cuff Size: Regular Adult) Pulse 92 Temp 37 ?C (98.6 ?F) (Temporal) Resp 16 Ht 177.8 cm (5' 10 ) Wt 88.5 kg (195 lb 1.7 oz) SpO2 96% BMI 27.99 kg/m? KPS: 90 General Appearance: Alert and oriented. No acute distress. Rectal exam is deferred. ASSESSMENT/PLAN: Prostate adenocarcinoma, initial PSA 9.95, biopsy [place] score 3 + 4 = 7 (grade group 2), clinical stage T1b, N0, M0, stage IIB [T1-T2, N0, M0, PSA <20, GG 2] (AJCC 8th ed.), s/p definitive radiation completed April 2022. 1. Prostate cancer. Clinically doing well. He has had a slight rise in PSA. Unclear significance. Recommend rechecking in 1 to 3 months. Should it continue to climb consider repeat imaging. 2. Spinal stenosis, lumbar spine. Follows with neurosurgery Signed by: Hyun Nazario MD cc: Shaikh Dotty [phone] [place] [address] [facility] NoteHNO ID: [id number] Author: KELLY HECTOR MA Service: ? Author Type: Assistive Technology Trainer Type: Progress Notes Filed: 01/18/2025 09:49 Note Text: AUA=[address] [place], [place] 4221404-14-2025 Evaluation note* Diagnosis Primary hypertension (CMS/HCC)- Primary Unspecified essential hypertension Stage 3a chronic kidney disease (HCC) (CMS/HCC) Mixed hyperlipidemia (CMS/HCC) Mixed hyperlipidemia Claudication (CMS/HCC) Unspecified peripheral vascular disease Peripheral vascular disease (CMS/HCC) Unspecified peripheral vascular disease Bradycardia Other specified cardiac dysrhythmias Prostate cancer (CMS/HCC) Malignant neoplasm of prostate Peripheral vascular disease (CMS/HCC)- Primary Unspecified peripheral vascular disease Stage 3a chronic kidney disease (HCC) (CMS/HCC) Primary hypertension (CMS/HCC) Unspecified essential hypertension Cerebrovascular accident (CVA), unspecified mechanism (CMS/HCC) Tobacco abuse Tobacco use disorder Chronic kidney disease, stage 3b (N18.32) Peripheral vascular disease, unspecified (I73.9) Peripheral vascular disease, unspecified Malignant neoplasm of prostate (C61) Malignant neoplasm of prostate Coronary artery disease involving [place] coronary artery of [place] heart without angina pectoris (CMS/HCC) H/O prostate cancer Mixed hyperlipidemia (CMS/HCC) Mixed hyperlipidemia Chronic bilateral low back pain with bilateral sciatica Coronary artery disease involving [place] coronary artery of [place] heart without angina pectoris (CMS/HCC)- Primary PAD (peripheral artery disease) (CMS/HCC) Unspecified peripheral vascular disease Primary hypertension (CMS/HCC) Unspecified essential hypertension Stage 3a chronic kidney disease (HCC) (CMS/HCC) Lumbar stenosis with neurogenic claudication Mixed hyperlipidemia (CMS/HCC) Mixed hyperlipidemia Elevated random blood glucose level Unintentional weight change Gastroesophageal reflux disease without esophagitis Esophageal reflux Coronary artery disease involving [place] coronary artery of [place] heart without angina pectoris (CMS/HCC)- Primary Stage 3a chronic kidney disease (HCC) (CMS/HCC) Lumbar stenosis with neurogenic claudication Primary hypertension (CMS/HCC)- Primary Unspecified essential hypertension Coronary artery disease involving [place] coronary artery of [place] heart without angina pectoris (CMS/HCC) Stage 3a chronic kidney disease (HCC) (CMS/HCC) Gastroesophageal reflux disease without esophagitis Esophageal reflux Tobacco abuse Tobacco use disorder Prostate cancer (CMS/HCC) Malignant neoplasm of prostate Benign prostatic hyperplasia with lower urinary tract symptoms, symptom details unspecified Mixed hyperlipidemia (CMS/HCC)- Primary Mixed hyperlipidemia Primary hypertension (CMS/HCC) Unspecified essential hypertension Stage 3a chronic kidney disease (HCC) (CMS/HCC) Stage 3a chronic kidney disease (HCC) (CMS/HCC)- Primary Lumbar stenosis with neurogenic claudication Mixed hyperlipidemia (CMS/HCC) Mixed hyperlipidemia Primary hypertension (CMS/HCC) Unspecified essential hypertension Primary hypertension (CMS/HCC) Unspecified essential hypertension [id number] Evaluation + Plan note* Assessment & Plan Note - MIKKI Montejo - 08/30/2024 1:10 PM EDTAssociated Problem(s): Chronic kidney disease, stage 3b (Multi) Follows routinely with nephrology September 2024 creatinine 1.7 [facility] Work Phone: [phone]) 417-531504-01-2025 Evaluation + Plan note* Assessment & Plan Note - MIKKI Montejo - 08/30/2024 1:10 PM EDTAssociated Problem(s): BMI 28.0-28.9,adult Reviewed the merits of healthy lifestyle choices on overall cardiovascular health. 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) Follows routinely with nephrology September 2024 creatinine 1.7 * Assessment & Plan Note - MIKKI Montejo - 08/30/2024 1:10 PM EDT Associated Problem(s): BMI 28.0-28.9,adult Reviewed the merits of healthy lifestyle choices on overall cardiovascular health. 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 Follows routinely with vascular Denies claudication * Assessment & Plan Note - MIKKI Montejo - 08/30/2024 1:10 PM EDT Associated Problem(s): Carotid artery disease Bilateral carotid endarterectomy Managed by local vascular team * Assessment & Plan Note - MIKKI Montejo - 08/30/2024 1:09 PM EDT Associated Problem(s): Hypertension Optimal in office * Assessment & Plan Note - MIKKI Montejo - 08/30/2024 1:09 PM EDT Associated Problem(s): HLD (hyperlipidemia) Moderate intensity statin September 2023 LDL 81, HDL 38 * Assessment & Plan Note - MIKKI Montejo - 08/30/2024 1:09 PM EDT Associated Problem(s): ASHD (arteriosclerotic heart disease) Mid 90s Inferior STEMI in [place] Jun 2023 MPI No ischemia/no infarct TID ration 1.10 EF 58% Current daily activity > 4 METs without concerning symptoms * Assessment & Plan Note - MIKKI Montejo - 08/30/2024 11:27 AM EDT Associated Problem(s): Smoker Down to less than a pack per day In past: did have benefit nicoderm patches and chantix. Continued every day tobacco use. Have reviewed the negative cardiovascular impact of nicotine. Continues to decline pharmacological assistance. documented in this [facility] Work Phone: [phone]) 733-605204-01-2025 Evaluation + Plan note* Assessment & Plan Note - MIKKI Montejo - 08/30/2024 1:09 PM EDTAssociated Problem(s): Hypertension Optimal in office [facility] Work Phone: 1([phone]) 592-316004-01-2025 Evaluation + Plan note* Assessment & Plan Note - MIKKI Montejo - 08/30/2024 1:09 PM EDTAssociated Problem(s): HLD (hyperlipidemia) Moderate intensity statin September 2023 LDL 81, HDL 38 [facility] Work Phone: [phone]) 610-355104-01-2025 Evaluation + Plan note* Assessment & Plan Note - MIKKI Montejo - 08/30/2024 1:09 PM EDTAssociated Problem(s): ASHD (arteriosclerotic heart disease) Mid 90 Inferior STEMI in [place] Jun 2023 MPI No ischemia/no infarct TID ration 1.10 EF 58% Current daily activity > 4 METs without concerning symptoms [facility] Work Phone: [phone] 308-843104-01-2025 Evaluation + Plan note* Assessment & Plan Note - MIKKI Montejo - 08/30/2024 11:27 AM EDTAssociated Problem(s): Smoker Down to less than a pack per day In past: did have benefit nicoderm patches and chantix. Continued every day tobacco use. Have reviewed the negative cardiovascular impact of nicotine. Continues to decline pharmacological assistance. [facility] Work Phone: [phone]) 196-117204-01-2025 History of Present illness Narrative* Jose Hector CLINICAL APPLICATION SPECIALIST-PHP PROGRAMMER - 08/30/2024 11:00 AM EDT Chief Complaint I think I am doing pretty good Reason for Visit Annual follow-up Patient presents to the office today for outpatient follow-up for coronary artery disease and secondary prevention. Last evaluated in clinic by Dr. Grayson July 2023. Presents today ambulatory with steady gait. Accompanied by patient Patient denies any hospitalizations or significant changes to interval medical history since last office follow-up. He follows routinely with PCP and will be due for annual labs in spring 2024. He also sees urology,nephrology and vascular. Since last office visit he reports an uneventful back surgery without MACE. History of Present Illness Extremely pleasant 79-year-old gentleman who presents to the office with no voiced cardiovascular complaints. His activity is mostly limited due to back discomfort and trying to baby my back becauseof surgery -he is able to complete ADLs, he lives on the second floor and goes up and down stairs on a regular basis. He ambulated in from the parking lot without concerns. Is able to go to the grocery store. He is unable to recall his angina symptom but denies any exertional chest pain, has very minimal dyspnea when he goes up the stairs but feels this is how I been for a long time . No orthopnea or PND. Denies palpitations. Patient reports that overall has no complaint(s) of chest pain, chest pressure/discomfort, claudication, dyspnea, exertional chest pressure/discomfort, fatigue, irregular heart beat, and lower extremity edema Daily activity: > 4 METs Denies any change in exercise capacity or functional tolerance since last office visit. The importance of secondary prevention reviewed: HTN: Optimal HLD: Optimal DM: Denies Smoker: Unfortunately, continues to smoke and is not ready to quit. He has significantly reduced from 3 packs daily down to less than 1 pack daily. BMI: Reviewed the merits of healthy lifestyle choices on overall cardiovascular health. Discussed the dynamic nature of coronary artery disease and the importance of seeking medical attention if new symptoms arise. Review of Systems Cardiovascular: Negative for chest pain, dyspnea on exertion, irregular heartbeat, leg swelling, near-syncope, orthopnea, palpitations, paroxysmal nocturnal dyspnea and syncope. Visit Vitals BP 136/68 (BP Location: Right arm, Patient Position: Sitting) Pulse 84 Ht 1.778 m (5' 10 ) Wt 90.3 kg (199 lb) BMI 28.55 kg/m Smoking Status Every Day BSA 2.11 m Physical Exam Vitals and nursing note reviewed. Constitutional: Appearance: Normal appearance. Cardiovascular: Rate and Rhythm: Normal rate and regular rhythm. Heart sounds: Normal heart sounds. Pulmonary: Effort: Pulmonary effort is normal. Breath sounds: Normal breath sounds. Musculoskeletal: Cervical back: Full passive range of motion without pain. Right lower leg: No edema. Left lower leg: No edema. Skin: General: Skin is cool. Neurological: Mental Status: He is alert and oriented to person, place, and time. Psychiatric: Attention and Perception: Attention normal. Mood and Affect: Mood normal. Behavior: Behavior is cooperative. Allergies Allergen Reactions Ezetimibe GI intolerance and Nausea/vomiting Urgrnck-Vzd-Daj Reductase Inhibitors Other Muscle/Joint Pain Current Outpatient Medications Medication Instructions amLODIPine (NORVASC) 10 mg, Daily before breakfast aspirin 81 mg, Daily RT clopidogrel (Plavix) 75 mg tablet 1 tablet, Daily RT ergocalciferol (Vitamin D-2) 1.25 MG (19919 UT) capsule 1 capsule, Once Weekly HYDROcodone-acetaminophen (Alexandria) 7.5-325 mg tablet 1 tablet, 3 times daily PRN nitroglycerin (NITROSTAT) 0.4 mg, sublingual, Every 5 min PRN, May repeat dose every 5 minutes for up to 3 doses total. pravastatin (PRAVACHOL) 40 mg, oral, Nightly valsartan (DIOVAN) 80 mg, oral, Daily Assessment: Smoker Down to less than a pack per day In past: did have benefit nicoderm patches and chantix. Continued every day tobacco use. Have reviewed the negative cardiovascular impact of nicotine. Continues to decline pharmacological assistance. 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 Chronic kidney disease, stage 3b (Multi) Follows routinely with nephrology September 2024 creatinine 1.7 Plan: Through informed decision making process incorporating patients unique circumstances, the followingtreatment plan will be initiated: 1. Prescription drug management of cardiovascular medication for efficacy, adherence to treatment, side effect assessment and polypharmacy. Current treatment clinically warranted and to continue without modifications. 2. Return for follow-up; in the interim, contact the office if new symptoms arise. Dr. Grayson annual Discussed the dynamic nature of coronary artery disease and the importance of seeking medical attention if new symptoms arise. Jose Hector MSN, CLINICAL APPLICATION SPECIALIST-PHP PROGRAMMER, PMHNP-[facility] [place], [place] Please excuse any errors in grammar or translation related to this dictation. Voice recognition software was utilized to prepare this document. documented in this [facility] Work Phone: [phone] Instructions* Patient Instructions* MIKKI Montejo - 08/30/2024 11:00 AM EDT Please bring all medicines, vitamins, and herbal supplements with you when you come to the office. Prescriptions will not be filled unless you are compliant with your follow up appointments or have a follow up appointment scheduled as per instruction of your physician. Refills should be requested at the time of your visit. PLAN: Through informed decision making process incorporating patients unique circumstances, the followingtreatment plan will be initiated: 1. Prescription drug management of cardiovascular medication for efficacy, adherence to treatment, side effect assessment and polypharmacy. Current treatment clinically warranted and to continue without modifications. 2. Return for follow-up; in the interim, contact the office if new symptoms arise. Dr. Kenan wiggins You need to stop smoking. Though it is not easy, more than half of all adults smokers have quit. Weencourage you to write down all the reasons you should quit smoking and set a quit date for yourself. Ask us how we can help. You may also call 3-190-DEAL-NOW for free resources and assistance. documented in this [facility] Work Phone: [phone] NotePatient Education Urology Hematuria, Adult Hematuria is blood in the urine. Blood may be visible in the urine, or it may be identified with a test. This condition can be caused by infections of the bladder, urethra, kidney, or prostate. Otherpossible causes include: ??? Kidney stones. ??? Cancer of the urinary tract. ??? Too much calcium in the urine. ??? Conditions that are passed from parent to child (inherited conditions). ??? Exercise that requires a lot of energy. Infections can usually be treated with medicine, and a kidney stone usually will pass through your urine. If neither of these is the cause of your hematuria, more tests may be needed to identify the cause of your symptoms. It is very important to tell your health care provider about any blood in your urine, even if it ispainless or the blood stops without treatment. Blood in the urine, when it happens and then stops and then happens again, can be a symptom of a very serious condition, including cancer. There is no pain in the initial stages of many urinary cancers. Follow these instructions at home: Medicines ??? Take rcrc-gjg-djlvswa and prescription medicines only as told by your health care provider. ??? If you were prescribed an antibiotic medicine, take it as told by your health care provider. Donot stop taking the antibiotic even if you start to feel better. Eating and drinking ??? Drink enough fluid to keep your urine pale yellow. It is recommended that you drink 3?4 quarts (2.8?3.8 L) a day. If you have been diagnosed with an infection, drinking cranberry juice in addition to large amounts of water is recommended. ??? Avoid caffeine, tea, and carbonated beverages. These tend to irritate the bladder. ??? Avoid alcohol because it may irritate the prostate (in males). General instructions ??? If you have been diagnosed with a kidney stone, follow your health care provider's instructionsabout straining your urine to catch the stone. ??? Empty your bladder often. Avoid holding urine for long periods of time. ??? If you are female: ? After a bowel movement, wipe from front to back and use each piece of toilet paper only once. ? Empty your bladder before and after sex. ??? Pay attention to any changes in your symptoms. Tell your health care provider about any changesor any new symptoms. ??? It is up to you to get the results of any tests. Ask your health care provider, or the department that is doing the test, when your results will be ready. ??? Keep all follow-up visits. This is important. Contact a health care provider if: ??? You develop back pain. ??? You have a fever or chills. ??? You have nausea or vomiting. ??? Your symptoms do not improve after 3 days. ??? Your symptoms get worse. Get help right away if: ??? You develop severe vomiting and are unable to take medicine without vomiting. ??? You develop severe pain in your back or abdomen even though you are taking medicine. ??? You pass a large amount of blood in your urine. ??? You pass blood clots in your urine. ??? You feel very weak or like you might faint. ??? You faint. Summary ??? Hematuria is blood in the urine. It has many possible causes. ??? It is very important that you tell your health care provider about any blood in your urine, even if it is painless or the blood stops without treatment. ??? Take vakq-png-ocurxpb and prescription medicines only as told by your health care provider. ??? Drink enough fluid to keep your urine pale yellow. This information is not intended to replace advice given to you by your health care provider. Make sure you discuss any questions you have with your health care provider. Document Revised: 01/16/2021 Document Reviewed: 01/16/2021 [employer] Patient Education ? 2023 [employer] 08-18-2024 NoteSUBJECTIVE: Chief complaint: Return visit status post right L3 hemilaminectomy with resection of synovial cyst, left L4 hemilaminectomy and partial medial and lateral facetectomy with foraminotomy, right L5 hemilaminotomy and partial medial and lateral facetectomy on 11/17/[address] Madera.. History of present illness: Reports from a back standpoint, he has been doing very well. His back sometimes gets achy if he has been standing for too long, though is alleviated by rest. He denies leg pain, weakness, paresthesias. Denies falls or imbalance. He does have chronic urinary urgency and nocturia due to previous prostate disease; this is unchanged. He denies bowel incontinence or bowel changes. He has been able to decrease his dose of Alexandria, which he has been on for many years. He notes that when he tries to stop the Alexandria completely, he experiences increased pain in his bilateral hands and wrists as well as bilateral feet and ankles. He was able to stop his gabapentin. Continues to follow with pain management. Review of systems: As in HPI. Past Medical History: Diagnosis Date Adverse effect of anesthesia 2013 Trouble controlling PB - drops very low Coronary artery disease 2012 Dental disease partial denture Diverticulitis Diverticulitis of colon Diverticulosis Hypertension 1996 Kidney disease Myocardial infarction (CMS/HCC) 1996 PONV (postoperative nausea and vomiting) Prostate cancer (CMS/HCC) PVD (peripheral vascular disease) PVD (peripheral vascular disease) left leg stent Stroke (CMS/HCC) 2012 Past [...] History Tobacco Use Smoking status: Every Day Current packs/day: 0.25 Average packs/day: 0.3 packs/day for 60.0 years (15.0 ttl pk-yrs) Types: Cigarettes Passive exposure: Past Smokeless tobacco: Never Vaping Use Vaping status: Never Used Substance Use Topics Alcohol use: Not Currently Comment: Have not drank for years Drug use: Never Family History Problem Relation Name Age of Onset Hypertension Mother Cynthia Elliott Diabetes Father Javier Broussard OBJECTIVE: Medications: amLODIPine aspirin capsule baclofen clopidogrel ergocalciferol HYDROcodone-acetaminophen nitroglycerin omeprazole pravastatin valsartan varenicline tartrate Current Outpatient Medications: amLODIPine (Norvasc) 10 mg tablet, Take 1 tablet by mouth in the morning., Disp: , Rfl: aspirin 81 mg capsule, Take 81 mg by mouth in the morning. Restart on Thursday11/22/2023, Disp: 30 capsule, Rfl: 0 clopidogrel (Plavix) 75 mg tablet, Take 1 tablet by mouth in the morning., Disp: , Rfl: ergocalciferol (Vitamin D-2) 1.25 MG (72142 Units) capsule, Take 1,250 mcg by mouth 1 (one) time per week., Disp: , Rfl: HYDROcodone-acetaminophen (Alexandria) 7.5-325 mg tablet, 1 tablet., Disp: , Rfl: nitroglycerin (Nitrostat) 0.4 mg SL tablet, Refills(s) 0, Disp: , Rfl: pravastatin (Pravachol) 10 mg tablet, Take 10 mg by mouth at bedtime., Disp: , Rfl: valsartan (Diovan) 80 mg tablet, Take 80 mg by mouth in the morning., Disp: , Rfl: baclofen (Lioresal) 10 mg tablet, Take 10 mg by mouth at bedtime., Disp: , Rfl: omeprazole (PriLOSEC) [address] capsule, TAKE 1 CAPSULE BY MOUTH IN THE MORNING BEFORE MEALS DO NOT CRUSH OR CHEW, Disp: , Rfl: varenicline (Chantix) 0.5 mg tablet, Take 0.5 mg by mouth in the morning and at bedtime. Take with full glass of water., Disp: , Rfl: Allergies: Allergies Allergen Reactions Ezetimibe GI intolerance Other reaction(s): Nausea/vomiting Tcgwnsh-Dvq-Gyd Reductase Inhibitors Other Muscle/Joint Pain Other Reaction(s): lipitor Exam: Vitals reviewed: Heart Rate: [79] 79 BP: (132)/(73) 132/73 No intake/output data recorded. No intake/output data recorded. Exam reviewed and updated. Constitutional: In no apparent distress. Chest: Chest expansion symmetrical. Respirations regular and nonlabored. Extremities without edema. Skin warm and dry without pallor. Neuro: GCS 15/15. Attention and memory intact. No dysarthria or aphasia. Sensation: Intact to light touch C5-T1 and L2-S1 dermatomes bilaterally. Musculoskeletal: Hip flexors 5/5 bilaterally. Knee flexors and extensors 5/5 bilaterally. Ankle dorsal flexors 5/5 bilaterally. Ankle plantar flexors 5/5 bilaterally. Muscle tone without hyper or hypotonicity. Muscle bulk appropriate for age (more content not included)...[facility] 08-08-2024 NotePatient Education Urology Hematuria, Adult Hematuria is blood in the urine. Blood may be visible in the urine, or it may be identified with a test. This condition can be caused by infections of the bladder, urethra, kidney, or prostate. Otherpossible causes include: ??? Kidney stones. ??? Cancer of the urinary tract. ??? Too much calcium in the urine. ??? Conditions that are passed from parent to child (inherited conditions). ??? Exercise that requires a lot of energy. Infections can usually be treated with medicine, and a kidney stone usually will pass through your urine. If neither of these is the cause of your hematuria, more tests may be needed to identify the cause of your symptoms. It is very important to tell your health care provider about any blood in your urine, even if it ispainless or the blood stops without treatment. Blood in the urine, when it happens and then stops and then happens again, can be a symptom of a very serious condition, including cancer. There is no pain in the initial stages of many urinary cancers. Follow these instructions at home: Medicines ??? Take bdrm-ete-amjdvke and prescription medicines only as told by your health care provider. ??? If you were prescribed an antibiotic medicine, take it as told by your health care provider. Donot stop taking the antibiotic even if you start to feel better. Eating and drinking ??? Drink enough fluid to keep your urine pale yellow. It is recommended that you drink 3?4 quarts (2.8?3.8 L) a day. If you have been diagnosed with an infection, drinking cranberry juice in addition to large amounts of water is recommended. ??? Avoid caffeine, tea, and carbonated beverages. These tend to irritate the bladder. ??? Avoid alcohol because it may irritate the prostate (in males). General instructions ??? If you have been diagnosed with a kidney stone, follow your health care provider's instructionsabout straining your urine to catch the stone. ??? Empty your bladder often. Avoid holding urine for long periods of time. ??? If you are female: ? After a bowel movement, wipe from front to back and use each piece of toilet paper only once. ? Empty your bladder before and after sex. ??? Pay attention to any changes in your symptoms. Tell your health care provider about any changesor any new symptoms. ??? It is up to you to get the results of any tests. Ask your health care provider, or the department that is doing the test, when your results will be ready. ??? Keep all follow-up visits. This is important. Contact a health care provider if: ??? You develop back pain. ??? You have a fever or chills. ??? You have nausea or vomiting. ??? Your symptoms do not improve after 3 days. ??? Your symptoms get worse. Get help right away if: ??? You develop severe vomiting and are unable to take medicine without vomiting. ??? You develop severe pain in your back or abdomen even though you are taking medicine. ??? You pass a large amount of blood in your urine. ??? You pass blood clots in your urine. ??? You feel very weak or like you might faint. ??? You faint. Summary ??? Hematuria is blood in the urine. It has many possible causes. ??? It is very important that you tell your health care provider about any blood in your urine, even if it is painless or the blood stops without treatment. ??? Take pbfs-ymr-wabfxho and prescription medicines only as told by your health care provider. ??? Drink enough fluid to keep your urine pale yellow. This information is not intended to replace advice given to you by your health care provider. Make sure you discuss any questions you have with your health care provider. Document Revised: 01/16/2021 Document Reviewed: 01/16/2021 [employer] Patient Education ? 2023 [employer] 07-14-2024 Hospital Discharge instructions Additional Instructions Begin taking topical antibiotic as prescribed. Encourage you follow-up with your cook mess within 24 to 48 hours to ensure proper healing. It is very important that you follow up with your primary care provider in the next 2-3 days unless instructed to do otherwise. If you do not have a primary care provider, you can contact [facility] and ask about being established for primary care services. If you require specialist follow up, such as with an orthopedic physician, chief librarian work with blind, urologist, or other medical specialty, you should contact the specialty clinic as soon as possible to schedule a follow up appointment. If you are established with a specialist, you can contact your preferred physician for follow up. If you are not already established with the specialist you need, you may have contact information provided to you with these discharge instructions. If you are being prescribed medications, take exactly as prescribed. Antibiotics, if prescribed, should be taken until the entire course is completed. You should not have left over antibiotics. Continue to take any previously prescribed home medications unless instructed otherwise. If you are experiencing fever or mild to moderate pain, you should first take Tylenol or ibuprofen available psym-xtx-mayivgz. Medications, if prescribed to treat pain from the emergency department, are intended to provide relief for severe pain that is not relieved by other methods of pain relief, you should use these medications cautiously as many are known to cause sedation/sleepiness, increased risk for falls, and other effects such as constipation. If your symptoms worsen please return to the ED or if you have any other [facility] Phone: [phone] History of Present illness Narrative* Nasir Ward NP - 07/13/2024 1:50 PM ESTAssociated Problem(s): Hypertension (CMS/HCC) Currently taking amlodipine, valsartan. Follows with Cardiology Does not check BP at home; Denies orthostatic changes, dizziness, cough, shortness of breath, swelling in extremities. Continue current regimen. Given BP log, advised pt to record BP and bring log back with them to next visit. * Nasir Ward NP - 07/13/2024 1:50 PM ESTAssociated Problem(s): HLD (hyperlipidemia) (CMS/HCC) Currently taking Prvastatin 40mg Denies any myalgias. Continue current regimen. * Nasir Ward NP - 07/13/2024 1:50 PM ESTAssociated Problem(s): Stage 3 chronic kidney disease (HCC) (CMS/HCC) Follows with Nephrology- Dr. Thakkar Most Recent eGFR: 47 Creatinine: 1.51 Avoid nephrotoxic agents. Monitor closely. * Nasir Ward NP - 07/13/2024 1:50 PM ESTAssociated Problem(s): Lumbar stenosis with neurogenic claudication Following with Pain Management for Lumbar Stenosis. Recently reduced dosage of Alexandria. Feels symptoms are well controlled. Continue current regimen as directed by PM. * Nasir Ward NP - 07/13/2024 1:30 PM EST Images from the original note were not included. Subjective Patient ID: Yesenia Broussard is a 79 y.o. male who presents for Follow-up. HPI Specialists: Cardiology- Dr. Grayson Urology- Dr. Jhonston Nephrology- Dr. Thakkar Vascular- Dr. Mchugh HTN: Currently taking amlodipine, valsartan. Follows with Cardiology Does not check BP at home; Denies orthostatic changes, dizziness, cough, shortness of breath, swelling in extremities. Continue current regimen. Given BP log, advised pt to record BP and bring log back with them to next visit. HLD: Currently taking Prvastatin 40mg Denies any myalgias. Continue current regimen. Component Ref Range & Units 9 mo ago CHOLESTEROL 140 - 200 mg/dL 135 Low Comment: Chol less than 200 mg/dl low risk Chol 201-239 mg/dl borderline risk Chol 240 mg/dl and greater high risk HDL CHOLESTEROL 23 - 92 mg/dL 38 Comment: HDL CHOL ATP-III CLASSIFICATION Cardiovascular Risk HDL > or equal to 60 mg/dL LOW HDL < 40 mg/dL HIGH TRIGLYCERIDE W/REFLEX 0 - 149 mg/dL 80 Comment: TRIG ATP III CLASSIFICATION TRIG less than 150 mg/dL Normal TRIG 150-199 mg/dL Borderline high TRIG 200-500 mg/dL High TRIG greater than 500 mg/dL Very high Standard traceable to the Center for Disease Conrtrol and Prevention (CDC) test method. LDL CHOLESTEROL,CALCULATED 0 - 100 mg/dL 81 Comment: LDL ATP III CLASSIFICATION LDL less than 100 mg/dL Optimal LDL 100-129 mg/dL Near or above optimal LDL 130-159 mg/dL Borderline high LDL 160-189 mg/dL High LDL greater than 189 mg/dL Very high VLDL CHOLESTEROL mg/dL 16 CHOL/HDL RATIO <5.0 3.6 [facility] CKD: Follows with Nephrology- Dr. Thakkar Most Recent eGFR: 47 Creatinine: 1.51 Avoid nephrotoxic agents. Monitor closely. Following with Pain Management for Lumbar Stenosis. Recently reduced dosage of Alexandria. Feels symptoms are well controlled. Continue current regimen as directed by PM. Review of Systems Constitutional: Negative for activity change, appetite change, chills, diaphoresis, fatigue, fever and unexpected weight change. HENT: Negative for congestion, ear pain, rhinorrhea, sinus pressure, sinus pain, sneezing, sore throat, trouble swallowing and voice change. Eyes: Negative for visual disturbance. Respiratory: Negative for cough, chest tightness, shortness of breath and wheezing. Cardiovascular: Negative for chest pain, palpitations and leg swelling. Gastrointestinal: Negative for abdominal distention, abdominal pain, blood in stool, constipation, diarrhea and vomiting. Genitourinary: Negative for decreased urine volume, dysuria, flank pain, frequency, hematuria and urgency. Musculoskeletal: Negative for arthralgias, gait problem, joint swelling and myalgias. Skin: Negative for rash. Neurological: Negative for dizziness, tremors, syncope, weakness, light- headedness and headaches. Psychiatric/Behavioral: Negative for decreased concentration and suicidal ideas. The patient is notnervous/anxious. Hematological: Does not bruise/bleed easily. Endocrine: Negative for cold intolerance, heat intolerance, polydipsia, polyphagia and polyuria. Objective Physical Exam Vitals reviewed. Constitutional: Appearance: Normal appearance. HENT: Right Ear: Tympanic membrane normal. Left Ear: Tympanic membrane normal. Nose: Nose normal. Mouth/Throat: Mouth: Mucous membranes are moist. Pharynx: Oropharynx is clear. Eyes: Pupils: Pupils are equal, round, and reactive to light. Cardiovascular: Rate and Rhythm: Normal rate and regular rhythm. Pulses: Normal pulses. Heart sounds: Normal heart sounds. Pulmonary: Effort: Pulmonary effort is normal. Breath sounds: Normal breath sounds. Abdominal: General: Abdomen is flat. Bowel sounds are normal. Palpations: Abdomen is soft. Musculoskeletal: General: Normal range of motion. Skin: General: Skin is warm and dry. Capillary Refill: Capillary refill takes less than 2 seconds. Neurological: Mental Status: He is alert and oriented to person, place, and time. Assessment/Plan Problem List Items Addressed This Visit HLD (hyperlipidemia) (CMS/HCC) Currently taking Prvastatin 40mg Denies any myalgias. Continue current regimen. Hypertension (CMS/HCC) Currently taking amlodipine, valsartan. Follows with Cardiology Does not check BP at home; Denies orthostatic changes, dizziness, cough, shortness of breath, swelling in extremities. Continue current regimen. Given BP log, advised pt to record BP and bring log back with them to next visit. Stage 3 chronic kidney disease (HCC) (CMS/HCC) - Primary Follows with Nephrology- Dr. Thakkar Most Recent eGFR: 47 Creatinine: 1.51 Avoid nephrotoxic agents. Monitor closely. Relevant Orders CBC and differential Comprehensive metabolic panel Lumbar stenosis with neurogenic claudication Following with Pain Management for Lumbar Stenosis. Recently reduced dosage of [place]. Feels symptoms are well controlled. Continue current regimen as directed by PM. documented in this encounterCass Medical [id number] Evaluation note* Diagnosis Primary hypertension (CMS/HCC)- Primary Unspecified essential hypertension Stage 3a chronic kidney disease (HCC) (CMS/HCC) Mixed hyperlipidemia (CMS/HCC) Mixed hyperlipidemia Claudication (CMS/HCC) Unspecified peripheral vascular disease Peripheral vascular disease (CMS/HCC) Unspecified peripheral vascular disease Bradycardia Other specified cardiac dysrhythmias Prostate cancer (CMS/HCC) Malignant neoplasm of prostate Peripheral vascular disease (CMS/HCC)- Primary Unspecified peripheral vascular disease Stage 3a chronic kidney disease (HCC) (CMS/HCC) Primary hypertension (CMS/HCC) Unspecified essential hypertension Cerebrovascular accident (CVA), unspecified mechanism (CMS/HCC) Tobacco abuse Tobacco use disorder Chronic kidney disease, stage 3b (N18.32) Peripheral vascular disease, unspecified (I73.9) Peripheral vascular disease, unspecified Malignant neoplasm of prostate (C61) Malignant neoplasm of prostate Coronary artery disease involving tazlina coronary artery of tazlina heart without angina pectoris (CMS/HCC) H/O prostate cancer Mixed hyperlipidemia (CMS/HCC) Mixed hyperlipidemia Chronic bilateral low back pain with bilateral sciatica Coronary artery disease involving tazlina coronary artery of tazlina heart without angina pectoris (CMS/HCC)- Primary PAD (peripheral artery disease) (CMS/HCC) Unspecified peripheral vascular disease Primary hypertension (CMS/HCC) Unspecified essential hypertension Stage 3a chronic kidney disease (HCC) (CMS/HCC) Lumbar stenosis with neurogenic claudication Mixed hyperlipidemia (CMS/HCC) Mixed hyperlipidemia Elevated random blood glucose level Unintentional weight change Gastroesophageal reflux disease without esophagitis Esophageal reflux Coronary artery disease involving tazl[place] coronary artery of tazl[place] heart without angina pectoris (CMS/HCC)- Primary Stage 3a chronic kidney disease (HCC) (CMS/HCC) Lumbar stenosis with neurogenic claudication Primary hypertension (CMS/HCC)- Primary Unspecified essential hypertension Coronary artery disease involving tazlina coronary artery of tazlina heart without angina pectoris (CMS/HCC) Stage 3a chronic kidney disease (HCC) (CMS/HCC) Gastroesophageal reflux disease without esophagitis Esophageal reflux Tobacco abuse Tobacco use disorder Prostate cancer (CMS/HCC) Malignant neoplasm of prostate Benign prostatic hyperplasia with lower urinary tract symptoms, symptom details unspecified Mixed hyperlipidemia (CMS/HCC)- Primary Mixed hyperlipidemia Primary hypertension (CMS/HCC) Unspecified essential hypertension Stage 3a chronic kidney disease (HCC) (CMS/HCC) Stage 3a chronic kidney disease (HCC) (CMS/HCC)- Primary Lumbar stenosis with neurogenic claudication Mixed hyperlipidemia (CMS/HCC) Mixed hyperlipidemia Primary hypertension (CMS/HCC) Unspecified essential hypertension documented in this encounter [facility] [id number] History of Present illness Narrative* Nasir Ward NP - 04/21/2024 11:43 AM ESTAssociated Problem(s): Stage 3 chronic kidney disease (HCC) (CMS/HCC) Follows with Nephrology. Avoid nephrotoxic agents. Monitor closely. * Nasir Ward NP - 04/21/2024 11:42 AM ESTAssociated Problem(s): Hypertension (CMS/HCC) Currently taking amlodipine, valsartan. Follows with Cardiology Does not check BP at home; Denies orthostatic changes, dizziness, cough, shortness of breath, swelling in extremities. Continue current regimen. Given BP log, advised pt to record BP and bring log back with them to next visit. * Nasir Ward NP - 04/21/2024 11:42 AM ESTAssociated Problem(s): HLD (hyperlipidemia) (CMS/HCC) Currently taking Prvastatin 40mg Denies any myalgias. Continue current regimen. * Nasir Ward NP - 04/21/2024 11:30 AM EST Images from the original note were not included. Subjective Patient ID: Yesenia Broussard is a 78 y.o. male who presents for No chief complaint on file.. HPI Specialists: Cardiology- Dr. Grayson Urology- Dr. Johnston Nephrology- Dr. Thakkar Vascular- Dr. Mchugh HTN: Currently taking amlodipine, valsartan. Follows with Cardiology Does not check BP at home; Denies orthostatic changes, dizziness, cough, shortness of breath, swelling in extremities. Continue current regimen. Given BP log, advised pt to record BP and bring log back with them to next visit. HLD: Currently taking Prvastatin 40mg Denies any myalgias. Continue current regimen. Component Ref Range & Units 6 mo ago CHOLESTEROL 140 - 200 mg/dL 135 Low Comment: Chol less than 200 mg/dl low risk Chol 201-239 mg/dl borderline risk Chol 240 mg/dl and greater high risk HDL CHOLESTEROL 23 - 92 mg/dL 38 Comment: HDL CHOL ATP-III CLASSIFICATION Cardiovascular Risk HDL > or equal to 60 mg/dL LOW HDL < 40 mg/dL HIGH TRIGLYCERIDE W/REFLEX 0 - 149 mg/dL 80 Comment: TRIG ATP III CLASSIFICATION TRIG less than 150 mg/dL Normal TRIG 150-199 mg/dL Borderline high TRIG 200-500 mg/dL High TRIG greater than 500 mg/dL Very high Standard traceable to the Center for Disease Conrtrol and Prevention (CDC) test method. LDL CHOLESTEROL,CALCULATED 0 - 100 mg/dL 81 Comment: LDL ATP III CLASSIFICATION LDL less than 100 mg/dL Optimal LDL 100-129 mg/dL Near or above optimal LDL 130-159 mg/dL Borderline high LDL 160-189 mg/dL High LDL greater than 189 mg/dL Very high VLDL CHOLESTEROL mg/dL 16 CHOL/HDL RATIO <5.0 3.6 [facility] CKD: Follows with Nephrology. Avoid nephrotoxic agents. Monitor closely. Following with Pain Management for Lumbar Stenosis. Recently had surgery. Pt reports he recently had blood work done in January- nothing new in [place]. Will request labs from Dr. Thakkar. Review of Systems Constitutional: Negative for activity change, appetite change, chills, diaphoresis, fatigue, fever and unexpected weight change. HENT: Negative for congestion, ear pain, rhinorrhea, sinus pressure, sinus pain, sneezing, sore throat, trouble swallowing and voice change. Eyes: Negative for visual disturbance. Respiratory: Negative for cough, chest tightness, shortness of breath and wheezing. Cardiovascular: Negative for chest pain, palpitations and leg swelling. Gastrointestinal: Negative for abdominal distention, abdominal pain, blood in stool, constipation, diarrhea and vomiting. Genitourinary: Negative for decreased urine volume, dysuria, flank pain, frequency, hematuria and urgency. Musculoskeletal: Negative for arthralgias, gait problem, joint swelling and myalgias. Skin: Negative for rash. Neurological: Negative for dizziness, tremors, syncope, weakness, light- headedness and headaches. Psychiatric/Behavioral: Negative for decreased concentration and suicidal ideas. The patient is notnervous/anxious. Hematological: Does not bruise/bleed easily. Endocrine: Negative for cold intolerance, heat intolerance, polydipsia, polyphagia and polyuria. Objective Physical Exam Vitals reviewed. Constitutional: Appearance: Normal appearance. HENT: Head: Normocephalic and atraumatic. Right Ear: Tympanic membrane normal. Left Ear: Tympanic membrane normal. Nose: Nose normal. Mouth/Throat: Mouth: Mucous membranes are moist. Pharynx: Oropharynx is clear. Eyes: Pupils: Pupils are equal, round, and reactive to light. Cardiovascular: Rate and Rhythm: Normal rate and regular rhythm. Pulses: Normal pulses. Heart sounds: Normal heart sounds. Pulmonary: Effort: Pulmonary effort is normal. Breath sounds: Normal breath sounds. Abdominal: General: Abdomen is flat. Bowel sounds are normal. Palpations: Abdomen is soft. Musculoskeletal: General: Normal range of motion. Cervical back: Normal range of motion. Skin: General: Skin is warm and dry. Capillary Refill: Capillary refill takes less than 2 seconds. Neurological: General: No focal deficit present. Mental Status: He is alert and oriented to person, place, and time. Psychiatric: Mood and Affect: Mood normal. Behavior: Behavior normal. Assessment/Plan Problem List Items Addressed This Visit HLD (hyperlipidemia) ([facility]) - Primary Currently taking Prvastatin 40mg Denies any myalgias. Continue current regimen. Hypertension ([facility]) Currently taking amlodipine, valsartan. Follows with Cardiology Does not check BP at home; Denies orthostatic changes, dizziness, cough, shortness of breath, swelling in extremities. Continue current regimen. Given BP log, advised pt to record BP and bring log back with them to next visit. Stage 3 chronic kidney disease (HCC) ([facility]) Follows with Nephrology. Avoid nephrotoxic agents. Monitor closely. documented in this encounterCass Medical [id number] Hospital Discharge instructions Patient Education 04/18/2024 12:09:27 Urinary Tract Infection, Adult Urinary Tract Infection, Adult A urinary tract infection (UTI) is an infection of any part of the urinary tract. The urinary tractincludes the kidneys, ureters, bladder, and urethra. These organs make, store, and get rid of urinein the body. An upper UTI affects the ureters and kidneys. A lower UTI affects the bladder and urethra. What are the causes? Most urinary tract infections are caused by bacteria in your genital area around your urethra, where urine leaves your body. These bacteria grow and cause inflammation of your urinary tract. What increases the risk? You are more likely to develop this condition if: You have a urinary catheter that stays in place. You are not able to control when you urinate or have a bowel movement (incontinence). You are female and you: ?Use a spermicide or diaphragm for control. ?Have low estrogen levels. ?Are . You have certain genes that increase your risk. You are sexually active. You take antibiotic medicines. You have a condition that causes your flow of urine to slow down, such as: ?An enlarged prostate, if you are male. ?Blockage in your urethra. ?A kidney stone. ?A nerve condition that affects your bladder control (neurogenic bladder). ?Not getting enough to drink, or not urinating often. You have certain medical conditions, such as: ?Diabetes. ?A weak disease-fighting system (immunesystem). ?Sickle cell disease. ?Gout. ?Spinal cord injury. What are the signs or symptoms? Symptoms of this condition include: Needing to urinate right away (urgency). Frequent urination. This may include small amounts of urine each time you urinate. Pain or burning with urination. Blood in the urine. Urine that smells bad or unusual. Trouble urinating. Cloudy urine. Vaginal discharge, if you are female. Pain in the abdomen or the lower back. You may also have: Vomiting or a decreased appetite. Confusion. Irritability or tiredness. A fever or chills. Diarrhea. The first symptom in older adults may be confusion. In some cases, they may not have any symptoms until the infection has worsened. How is this diagnosed? This condition is diagnosed based on your medical history and a physical exam. You may also have other tests, including: Urine tests. Blood tests. Tests for STIs (sexually transmitted infections). If you have had more than one UTI, a cystoscopy or imaging studies may be done to determine the cause of the infections. How is this treated? Treatment for this condition includes: Antibiotic medicine. Rjsz-gxy-vcgunch medicines to treat discomfort. Drinking enough water to stay hydrated. If you have frequent infections or have other conditions such as a kidney stone, you may need to see a health care provider who specializes in the urinary tract (urologist). In rare cases, urinary tract infections can cause sepsis. Sepsis is a life- threatening condition that occurs when the body responds to an infection. Sepsis is treated in the hospital with IV antibiotics, fluids, and other medicines. Follow these instructions at home: Medicines Take usgp-bep-dorsptx and prescription medicines only as told by your health care provider. If you were prescribed an antibiotic medicine, take it as told by your health care provider. Do notstop using the antibiotic even if you start to feel better. General instructions Make sure you: ?Empty your bladder often and completely. Do not hold urine for long periods of time. ?Empty your bladder after sex. ?Wipe from front to back after urinating or having a bowel movement if you are female. Use each tissue only one time when you wipe. Drink enough fluid to keep your urine pale yellow. Keep all follow-up visits. This is important. Contact a health care provider if: Your symptoms do not get better after 1 2 days. Your symptoms go away and then return. Get help right away if: You have severe pain in your back or your lower abdomen. You have a fever or chills. You have nausea or vomiting. Summary A urinary tract infection (UTI) is an infection of any part of the urinary tract, which includes the kidneys, ureters, bladder, and urethra. Most urinary tract infections are caused by bacteria in your genital area. Treatment for this condition often includes antibiotic medicines. If you were prescribed an antibiotic medicine, take it as told by your health care provider. Do notstop using the antibiotic even if you start to feel better. Keep all follow-up visits. This is important. This information is not intended to replace advice given to you by your health care provider. Make sure you discuss any questions you have with your health care provider. Document Revised: 12/23/2020 Document Reviewed: 12/28/2020 [employer] Patient Education 2023 [employer]. Follow Up Care 09/18/2023 12:00:10 With:PRESTON MAK, Barbara Warner, URL Address: [facility] [address] [place] [address]- [phone] When: Unknown Comments:1 yr w/ GIA [facility] 11-18-2024 NotePatient Education Obstetrics and Gynecology Urinary Tract Infection, Adult A urinary tract infection (UTI) is an infection of any part of the urinary tract. The urinary tractincludes the kidneys, ureters, bladder, and urethra. These organs make, store, and get rid of urinein the body. An upper UTI affects the ureters and kidneys. A lower UTI affects the bladder and urethra. What are the causes? Most urinary tract infections are caused by bacteria in your genital area around your urethra, where urine leaves your body. These bacteria grow and cause inflammation of your urinary tract. What increases the risk? You are more likely to develop this condition if: ??? You have a urinary catheter that stays in place. ??? You are not able to control when you urinate or have a bowel movement (incontinence). ??? You are female and you: ? Use a spermicide or diaphragm for control. ? Have low estrogen levels. ? Are . ??? You have certain genes that increase your risk. ??? You are sexually active. ??? You take antibiotic medicines. ??? You have a condition that causes your flow of urine to slow down, such as: ? An enlarged prostate, if you are male. ? Blockage in your urethra. ? A kidney stone. ? A nerve condition that affects your bladder control (neurogenic bladder). ? Not getting enough to drink, or not urinating often. ??? You have certain medical conditions, such as: ? Diabetes. ? A weak disease-fighting system (immunesystem). ? Sickle cell disease. ? Gout. ? Spinal cord injury. What are the signs or symptoms? Symptoms of this condition include: ??? Needing to urinate right away (urgency). ??? Frequent urination. This may include small amounts of urine each time you urinate. ??? Pain or burning with urination. ??? Blood in the urine. ??? Urine that smells bad or unusual. ??? Trouble urinating. ??? Cloudy urine. ??? Vaginal discharge, if you are female. ??? Pain in the abdomen or the lower back. You may also have: ??? Vomiting or a decreased appetite. ??? Confusion. ??? Irritability or tiredness. ??? A fever or chills. ??? Diarrhea. The first symptom in older adults may be confusion. In some cases, they may not have any symptoms until the infection has worsened. How is this diagnosed? This condition is diagnosed based on your medical history and a physical exam. You may also have other tests, including: ??? Urine tests. ??? Blood tests. ??? Tests for STIs (sexually transmitted infections). If you have had more than one UTI, a cystoscopy or imaging studies may be done to determine the cause of the infections. How is this treated? Treatment for this condition includes: ??? Antibiotic medicine. ??? Tlzx-nwy-arehsyq medicines to treat discomfort. ??? Drinking enough water to stay hydrated. If you have frequent infections or have other conditions such as a kidney stone, you may need to see a health care provider who specializes in the urinary tract (urologist). In rare cases, urinary tract infections can cause sepsis. Sepsis is a life- threatening condition that occurs when the body responds to an infection. Sepsis is treated in the hospital with IV antibiotics, fluids, and other medicines. Follow these instructions at home: Medicines ??? Take ncxq-dmb-iulmqgv and prescription medicines only as told by your health care provider. ??? If you were prescribed an antibiotic medicine, take it as told by your health care provider. Donot stop using the antibiotic even if you start to feel better. General instructions ??? Make sure you: ? Empty your bladder often and completely. Do not hold urine for long periods of time. ? Empty your bladder after sex. ? Wipe from front to back after urinating or having a bowel movement if you are female. Use each tissue only one time when you wipe. ??? Drink enough fluid to keep your urine pale yellow. ??? Keep all follow-up visits. This is important. Contact a health care provider if: ??? Your symptoms do not get better after 1?2 days. ??? Your symptoms go away and then return. Get help right away if: ??? You have severe pain in your back or your lower abdomen. ??? You have a fever or chills. ??? You have nausea or vomiting. Summary ??? A urinary tract infection (UTI) is an infection of any part of the urinary tract, which includes the kidneys, ureters, bladder, and urethra. ??? Most urinary tract infections are caused by bacteria in your genital area. ??? Treatment for this condition often includes antibiotic medicines. ??? If you were prescribed an antibiotic medicine, take it as told by your health care provider. Donot stop using the antibiotic even if you start to feel better. ??? Keep all follow-up visits. This is important. This information is not intended to replace advice given to you by your health care provider. Make sure you di (more content not included)...[facility]09-19-2024 Telephone encounter Note* Telephone Encounter - Sugar Wellington MA - 02/18/2024 9:49 AM EDT [facility] [id number] Miscellaneous Notes* Telephone Encounter - Sugar Wellington MA - 02/18/2024 9:49 AM EDT Refill request from [facility] - documented in this encounterCass Medical [id number] Telephone encounter Note* Telephone Encounter - Sugar Wellington MA - 02/02/2024 11:29 AM EDT PT INTO OFFICE AND SAID ALL OTHER RXS WERE SENT IN FOR 90 DAY SUPPLIES BUT AMLODIPINE WASN'T SENT IN? CAN YOU SEND IN A 90 BEFORE THURSDAY THEY ARE LEAVING OUT OF STATE FOR THREE MONTHS. -SCR [facility] [id number] Miscellaneous Notes* Telephone Encounter - Sugar Wellington MA - 02/02/2024 11:29 AM EDT PT INTO OFFICE AND SAID ALL OTHER RXS WERE SENT IN FOR 90 DAY SUPPLIES BUT AMLODIPINE WASN'T SENT IN? CAN YOU SEND IN A 90DAY BEFORE THURSDAY THEY ARE LEAVING OUT OF STATE FOR THREE MONTHS. -SCR documented in this [facility]08-21-2024 History of Present illness Narrative* Nasir Ward NP - 01/20/2024 6:54 PM EDTAssociated Problem(s): Tobacco abuse Will Re-order Chantix for the patient. Is [...] provider if/when they are ready to quit. * Nasir Ward NP - 01/20/2024 6:53 PM EDTAssociated Problem(s): Gastroesophageal reflux disease without esophagitis Taking Omeprazole 40mg Reports he is doing very well. Denies complaints. * Nasir Ward NP - 01/20/2024 6:43 PM EDTAssociated Problem(s): Stage 3 chronic kidney disease (HCC) (CMS/HCC) Follows Nephrology Dr. Thakkar CKD stage 3. Continue to monitor and avoid nephrotoxic agents. * Nasir Ward NP - 01/20/2024 6:42 PM EDTAssociated Problem(s): Coronary artery disease involving tazl[place] coronary artery of t[place] heart with out angina pectoris (CMS/HCC) Follows Cardiology Lipid panel done in 09/2023- looked great. Continue Pravastatin as ordered. * Nasir Ward NP - 01/20/2024 6:38 PM EDTAssociated Problem(s): Hypertension (CMS/HCC) Taking Amlodipine and Valsartan Denies orthostatic changes Continue amlodipine and valsartan * Nsair Ward NP - 01/20/2024 6:00 PM EDT Images from the original note were not included. Subjective Patient ID: Yesenia Broussard is a 78 y.o. male who presents for Med Refill. HPI Labs done in October HTN: Amlodipine and Valsartan Denies orthostatic changes HLD: Taking 40mg Pravastatin Lipid panel below: Component Ref Range & Units 3 mo ago CHOLESTEROL 140 - 200 mg/dL 135 Low Comment: Chol less than 200 mg/dl low risk Chol 201-239 mg/dl borderline risk Chol 240 mg/dl and greater high risk HDL CHOLESTEROL 23 - 92 mg/dL 38 Comment: HDL CHOL ATP-III CLASSIFICATION Cardiovascular Risk HDL > or equal to 60 mg/dL LOW HDL < 40 mg/dL HIGH TRIGLYCERIDE W/REFLEX 0 - 149 mg/dL 80 Comment: TRIG ATP III CLASSIFICATION TRIG less than 150 mg/dL Normal TRIG 150-199 mg/dL Borderline high TRIG 200-500 mg/dL High TRIG greater than 500 mg/dL Very high Standard traceable to the Center for Disease Conrtrol and Prevention (CDC) test method. LDL CHOLESTEROL,CALCULATED 0 - 100 mg/dL 81 Comment: LDL ATP III CLASSIFICATION LDL less than 100 mg/dL Optimal LDL 100-129 mg/dL Near or above optimal LDL 130-159 mg/dL Borderline high LDL 160-189 mg/dL High LDL greater than 189 mg/dL Very high VLDL CHOLESTEROL mg/dL 16 CHOL/HDL RATIO <5.0 3.6 CAD: CKD: Follows Nephrology Sees pain management; Stopped oxycodone and hydrocodone; started on Gabapentin Bid Complains of waking frequently and not getting good sleep. Mostly due to the urge to urinate. Review of Systems Constitutional: Negative for activity change, appetite change, chills, diaphoresis, fatigue, fever and unexpected weight change. HENT: Negative for congestion, ear pain, rhinorrhea, sinus pressure, sinus pain, sneezing, sore throat, trouble swallowing and voice change. Eyes: Negative for visual disturbance. Respiratory: Negative for cough, chest tightness, shortness of breath and wheezing. Cardiovascular: Negative for chest pain, palpitations and leg swelling. Gastrointestinal: Negative for abdominal distention, abdominal pain, blood in stool, constipation, diarrhea and vomiting. Genitourinary: Positive for frequency. Negative for decreased urine volume, dysuria, flank pain, hematuria and urgency. Musculoskeletal: Positive for back pain. Negative for arthralgias, gait problem, joint swelling andmyalgias. Skin: Negative for rash. Neurological: Negative for dizziness, tremors, syncope, weakness, light- headedness and headaches. Psychiatric/Behavioral: Negative for decreased concentration and suicidal ideas. The patient is notnervous/anxious. Hematological: Does not bruise/bleed easily. Endocrine: Negative for cold intolerance, heat intolerance, polydipsia, polyphagia and polyuria. Objective Physical Exam Vitals reviewed. Constitutional: Appearance: Normal appearance. HENT: Head: Normocephalic and atraumatic. Right Ear: Tympanic membrane normal. Left Ear: Tympanic membrane normal. Nose: Nose normal. Mouth/Throat: Mouth: Mucous membranes are moist. Pharynx: Oropharynx is clear. Eyes: Pupils: Pupils are equal, round, and reactive to light. Cardiovascular: Rate and Rhythm: Normal rate and regular rhythm. Pulses: Normal pulses. Heart sounds: Normal heart sounds. Pulmonary: Effort: Pulmonary effort is normal. Breath sounds: Normal breath sounds. Abdominal: General: Abdomen is flat. Bowel sounds are normal. Palpations: Abdomen is soft. Musculoskeletal: General: Normal range of motion. Cervical back: Normal range of motion. Skin: General: Skin is warm and dry. Capillary Refill: Capillary refill takes less than 2 seconds. Neurological: General: No focal deficit present. Mental Status: He is alert and oriented to person, place, and time. Psychiatric: Mood and Affect: Mood normal. Behavior: Behavior normal. Assessment/Plan Problem List Items Addressed This Visit Hypertension ([facility]/HCC) - Primary Taking Amlodipine and Valsartan Denies orthostatic changes Continue amlodipine and valsartan Stage 3 chronic kidney disease (HCC) ([facility]/HCC) Follows Nephrology Dr. Thakkar CKD stage 3. Continue to monitor and avoid nephrotoxic agents. Coronary artery disease involving tazlina coronary artery of tazlina heart without angina pectoris ([facility]) Follows Cardiology Lipid panel done in 09/2023- looked great. Continue Pravastatin as ordered. Tobacco abuse Will Re-order Chantix for the patient. Is [...] provider if/when they are ready to quit. Gastroesophageal reflux disease without esophagitis Taking Omeprazole 40mg Reports he is doing very well. Denies complaints. documented in this [facility]08-21-2024 Instructions* Patient Instructions* Nasir Ward NP - 01/20/2024 6:00 PM EDT Referral sent to Dr. Bryant- Urology; They will call you! Call if you need anything! documented in this [facility]08-13-2024 NoteSUBJECTIVE: Chief complaint: Postoperative visit status post right [...] he would like to stop taking his Alexandria and his gabapentin. He was on Alexandria 5/325 for many years per pain management. Dose was increased to Alexandria 7.5 325 recently due to his increased back symptoms. Just taking gabapentin once per day. He does state that when he does not take his Alexandria often enough, he seems to have a [...] vascular disease) (CMS/HCC) left leg stent Stroke (CMS/[facility]) 2012 Past Surgical History: Procedure Laterality Date [...] , Rfl: ergocalciferol (Vitamin D-2) 1.25 MG (73994 Units) capsule, Take 1,250 mcg by mouth 1 (one) time per week., Disp: , Rfl: gabapentin (Neurontin) 100 mg capsule, Take 100 mg by mouth at bedtime., Disp: , Rfl: HYDROcodone-acetaminophen (Alexandria) 7.5-325 mg tablet, 1 tablet., Disp: , [...] Reactions Ezetimibe GI intolerance Other reaction(s): Nausea/vomiting Mgiasdp-Vlp-Php Reductase Inhibitors Other Muscle/Joint Pain Other Reaction(s): lipitor Exam: Vitals reviewed: Temp: [36.6 ???C (97.8 ???F)] 36.6 ???C (97.8 ???F) Heart Rate: [76] 76 BP: (146)/(73) 146/73 No intake/output data recorded. No intake/outpu (more content not included)...[facility]07-23-[facility] Evaluation note* Diagnosis Prostate cancer (HCC)- Primary Malignant neoplasm of prostate Stage 3 chronic kidney disease, unspecified whether stage 3a or 3b CKD (HCC) documented in this encounter [facility]07-16-2024 Nurse Note* Diane Parada LPN - 12/15/2023 2:36 PM EDT AUA= 13 [facility]07-16-2024 Nurse Note* Diane Parada LPN - 12/15/2023 2:36 PM EDT AUA= 13 documented in this encounterCleveland Clinic [facility]07-16-2024 History of Present illness Narrative* Hyun Nazario MD - 12/15/2023 2:30 PM EDT Radiation Oncology - Follow Up Note PATIENT NAME: Yesenia Broussard PATIENT DIAGNOSIS: Prostate adenocarcinoma, initial PSA 9.95, biopsy [place] score 3 + 4 = 7 (grade [...] ASSESSMENT/PLAN: Prostate adenocarcinoma, initial PSA 9.95, biopsy [place] score 3 + 4 = 7 (grade group 2), clinical stage T1b, N0, M0, stage IIB [T1-T2, N0, M0, PSA <20, GG 2] (AJCC 8th ed.), s/pdefinitive radiation completed April 2022. 1. Prostate cancer. Patient is doing well stable and low PSA plan to see patient back in 1 year with repeat PSA. 2. Spinal stenosis, lumbar spine. Follows with neurosurgery Signed by: Hyun Nazario MD cc: Shaikh Dotty [address] [place] [address] documented in this encounterCleveland Clinic Foundation07-03-2024 NoteIn person visit Chief complaint: follow up from multi-level lumbar decompressive operations TULUKSAK 78 y/o male - had multi-level surgeries [...] tablet 0 ergocalciferol (Vitamin D-2) 1.25 MG (11752 Units) capsule Take 1,250 mcg by mouth 1 (one) time per week. gabapentin (Neurontin) 100 mg capsule Take 100 mg by mouth at bedtime. HYDROcodone-acetaminophen (Alexandria) 7.5-325 mg tablet 1 tablet. nitroglycerin (Nitrostat) [...] Reactions Ezetimibe GI intolerance Other reaction(s): Nausea/vomiting Itzrbut-Bwq-Hme Reductase Inhibitors Other Muscle/Joint Pain Other Reaction(s): [...] 4-6 with either me or Joellen Madera MDGrant [facility]06-[facility] Note Occupational Therapy Occupational Therapy Evaluation [...] senile cataract Anxiety Atherosclerotic heart disease of tazlina coronary artery without angina pectoris BPH with urinary obstruction Bradycardia BMI 28.0-28.9,adult Chest pressure Chronic low back pain Chronic pain disorder Chronic prostatitis Elevated random blood glucose level Gastroesophageal reflux disease without esophagitis Feeling of incomplete bladder emptying Erectile dysfunction Gross hematuria H/O prostate cancer Carotid artery disease ([facility]/HCC) CVA (cerebral vascular accident) ([facility]/HCC) Heart disease Hypertension PAD (peripheral artery disease) ([facility]/HCC) Peripheral vascular disease ([facility]/HCC) History of SC (myocardial infarction) HLD (hyperlipidemia) Intermittent claudication ([facility]) Kidney disease 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) Prostate cancer ([facility]/HCC) Nocturia Prostate nodule Recurrent UTI Stage 3 chronic kidney disease ([facility]) Tobacco abuse Smoker Umbilical hernia Unintentional weight change UTI symptoms S/P lumbar laminectomy Past Medical History: Diagnosis Date Adverse effect of anesthesia 2013 Trouble controlling PB - drops very low Coronary artery disease 2013 Dental disease partial denture Diverticulitis Diverticulitis of colon Diverticulosis Hypertension 1996 Kidney disease Myocardial infarction ([facility]/HCC) 1996 PONV (postoperative nausea and vomiting) Prostate cancer ([facility]/HCC) PVD (peripheral vascular disease) ([facility]) PVD (peripheral vascular disease) ([facility]) left leg stent Stroke ([facility]) 2012 Past Surgical History: Procedure Laterality Date [...] Functional Limits General Assessment General Assessment Hearing: [place] [place] Home Living Home Living Type of Home: [...] Level of Function Prior Function Level of [place]: Independent with ADLs and functional transfers, Independent [...] No upper extremity supporte (more content not included)...[facility]-19-20[facility] NotePhysical Therapy Evaluation Patient Name: Yesenia rBoussard Today's Date: 11/18/2023 Admit Date: 11/17/2023 Time [...] reach and resting comfortably in chair. Co Eval with OT completed this date to minimize [...] senile cataract Anxiety Atherosclerotic heart disease of tazlina coronary artery without angina pectoris BPH with urinary obstruction Bradycardia BMI 28.0-28.9,adult Chest pressure Chronic low back pain Chronic pain disorder Chronic prostatitis Elevated random blood glucose level Gastroesophageal reflux disease without esophagitis Feeling of incomplete bladder emptying Erectile dysfunction Gross hematuria H/O prostate cancer Carotid artery disease ([facility]/HCC) CVA (cerebral vascular accident) ([facility]/HCC) Heart disease Hypertension PAD (peripheral artery disease) ([facility]/HCC) Peripheral vascular disease ([facility]) History of SC (myocardial infarction) HLD (hyperlipidemia) Intermittent claudication ([facility]/HCC) Kidney disease 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) Prostate cancer ([facility]/HCC) Nocturia Prostate nodule Recurrent UTI Stage 3 chronic kidney disease ([facility]) Tobacco abuse Smoker Umbilical hernia Unintentional weight change UTI symptoms S/P lumbar laminectomy Past Medical History: Diagnosis Date Adverse effect of anesthesia 2013 Trouble controlling PB - drops very low Coronary artery disease 2012 Dental disease partial denture Diverticulitis Diverticulitis of colon Diverticulosis Hypertension 1996 Kidney disease Myocardial infarction ([facility]/HCC) 1996 PONV (postoperative nausea and vomiting) Prostate cancer ([facility]/HCC) PVD (peripheral vascular disease) ([facility]) PVD (peripheral vascular disease) ([facility]) left leg stent Stroke ([facility]) 2012 Past Surgical History: Procedure Laterality Date [...] pt advised to a (more content not included)...[facility]06-18-2024 Note Patient: Yesenia Broussard Procedure Summary Date: 11/17/23 Room / Location: [facility] OPERATING [facility] 02 / [facility] Operating [facility] Anesthesia Start: 921 Anesthesia [...] PACU per anesthesia protocol. No notable events documented.[facility]06-18-2024 Note Peripheral IV Date/Time: 11/17/2023 10:25 AM Inserted by: French Coffman MD Placement Needle size: 18 G Laterality: left Location: hand Local anesthetic: GA. Site prep: alcohol Technique: anatomical landmarks [facility]s: 1Un[facility]24 NoteAirway Date/Time: 11/17/2023 9:33 AM Urgency: elective Airway not difficult General Information and Staff Patient location during procedure: OR Resident/FILTER PRESS TENDER HEAD/CAA: French Coffman MD Performed: resident/FILTER PRESS TENDER HEAD/CAA Indications and Patient Condition Indications for airway [...] (cm): 22 Number of attempts at approach: 1Un[facility]06-18-2024 NotePatient: Yesenia Broussard Procedure Information Date/Time: 11/17/23 0935 Procedures: L3-L4 Synovial Cyst Resection, Left L4-L5 Lateral Recess Decompression, and (Bilateral) Right L5 Foraminal Decompression (Bilateral) - C-arm, Prone on Robert Table Location: [facility] 02 / [facility] Operating Room Surgeons: Vasile Madera MD Relevant Problems Anesthesia (within normal limits) Cardio SC 10 years ago, one stent (+) 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 (+) CVA (cerebral vascular accident) ([facility]) Pulmonary Long standing tobacco use, COPD Clinical [...] patient. Plan discussed with resident. Additional Equipment RequestsGrant Hospital06-06-2024 Note SUBJECTIVE: Chief complaint: Preoperative visit [...] He saw pain management and is taking Alexandria, which helps some. Did physical therapy in [...] , Rfl: ergocalciferol (Vitamin D-2) 1.25 MG (73381 Units) capsule, Take 1,250 mcg by mouth 1 (one) time per week., Disp: , Rfl: gabapentin (Neurontin) 100 mg capsule, Take 100 mg by mouth at bedtime., Disp: , Rfl: HYDROcodone-acetaminophen (Alexandria) 7.5-325 mg tablet, TAKE 1 TABLET BY [...] Reactions Ezetimibe GI intolerance Other reaction(s): Nausea/vomiting Trwhvkz-Qbt-Ibb Reductase Inhibitors Other Muscle/Joint Pain Other Reaction(s): [...] 5/5 bilaterally. Hip flexor (more content not included)...[facility] 09-18-2023 Hospital Discharge instructions Patient Education [...] to keep your urine pale yellow. ?Take jkmc-mog-dgncyga or prescription medicines. ?Eat foods that are high in fiber, such as beans, whole grains, and fresh fruits and vegetables. ?Limit foods that are high in fat and processed sugars, such as fried or sweet foods. General instructions Take rmqz-shr-xsbcowy and prescription medicines only as told by [...] the muscles that help control urination. Take zmms-vvd-luerfzv and prescription medicines only as told by your health care provider. Contact a health care provider if your symptoms do not improve or get worse. This information is not intended to replace advice given to you by your health care provider. Make sure you discuss any questions you have with your health care provider. Document Revised: 12/21/2020 Document Reviewed: 12/21/2020 [employer] Patient Education 2022 [employer]. Follow Up Care 07/07/2023 09:49:12 With:PRESTON MAK, Barbara Warner, URL Address: [address] [place] [address] [place] [address]- When: Unknown [facility] 04-03-2024 NoteIn person visit Chief complaint: had stent put in his left leg - was having some pain in the right leg TULUKSAK: 78 y/o male He had some pain in the right leg His primary complaint is his back and hips He did have to have a stent in th left leg - for a vascular blockage The stent was done at [facility] His left leg was about 6 months [...] 2021 That was treated out by [facility] in [place] - Dr. Hernandez ROS: As above Past [...] - from about 2 packs per day. NOHEMY PRN MD Vasile Castro MDGrant Hospital 08-18-2023 History of Present illness Narrative* [...] his history are noted for prior inferior SC with revascularization of the RCA in [place] followed by bilateral carotid endarterectomies. More recently [...] normal. Judgment: Judgment normal. Allergies Ezetimibe and Owhqosr-nen-uki reductase inhibitors Current Medications Current Outpatient Medications: [...] , Rfl: ergocalciferol (Vitamin D-2) 1.25 MG (52425 UT) capsule, Take 1 capsule (1,250 mcg) by mouth 1 (one) time per week., Disp: , Rfl: gabapentin (Neurontin) 100 mg capsule, Take 1 capsule (100 mg) by mouth 2 times a day., Disp: , Rfl: HYDROcodone-acetaminophen (Alexandria) 7.5-325 mg tablet, Take 1 tablet by [...] Follow Up In Cardiology 4. History of SC (myocardial infarction) 5. BMI 28.0-28.9,adult 6. ASHD (arteriosclerotic heart disease) 7. PVD (peripheral vascular disease) (CMS/HCC) 8. Smoker 9. Chest pain, unspecified type Scribe Attestation By signing my name below, IJaky LPN, Scribelbert attest that this documentation has been [...] exam, discussion and plan. [facility] Work Phone: 1(799) 781-691903-19-2024 Instructions* Patient Instructions* Shahla Foster MA - [...] time of your visit. documented in this encounterS[facility] Work Phone: 1(663) 457-143501-14-2024 NoteHNO ID: [id number] Author: KODI REYNOLDS MD Service: ? Author [...] pleasant 77-year-old male who recently moved from [place] to [place]. He reports longstanding history of back and [...] 0 0 0 PHQ- (more content not included)...[facility] [id number] History of Present illness Narrative* Kodi Reynolds [...] pleasant 77-year-old male who recently moved from [place] to [place]. He reports longstanding history of back and [...] PT HEP PREVIOUS SPINAL SURGERY: L4/5 decompression, 2017 ACTIVE PROBLEM LIST Prostate Cancer (Hcc) Stage [...] BICEPS TRICEPS DELTS Wrist Ext Wrist Flex Outpatient Coder HI R 5 5 5 5 5 [...] activities? No Bert Harper documented in this encounterC[facility] Foundation01-12-2024 NoteHNO ID: [id number] Author: ?, ?, ? Service: ? Author [...] completing routine daily living activities? No Bert HarperWvumedicine [facility] Community [id number] History of Present illness Narrative * Chaim Grayson, DO - 06/04/2023 9:50 AM EST Cardiology Consultation- New Consult Reason for referral: 77-year-old gentleman seen in cardiology consultation at the request of primary care physician Dr. Storm, for further evaluation regarding chest discomfort. Patient moved from [place] to the local area approximately 2 years ago. He has a history of previous inferior SC in the mid with revascularization of the RCA in [place] followed by stroke with subsequent bilateral carotid [...] ischemia given his risk factors and previous SC and revascularization on follow-up thereafterwards HPI: Yesenia Renteria is a 77 y.o. male Past Medical History: He has a past medical history of Abnormal ECG (05-20-2023), Cancer ([facility]) (07/07/2021), Chronic kidney disease, Coronary artery disease, Hypertension, Myocardial infarction ([facility]) (10/30/1996), and Stroke ([facility]) (01/31/12). Surgical History: He has a past [...] Alcohol use: Not Currently Allergies: Ezetimibe and Gisdieg-wql-xmo reductase inhibitors Current Medications: Current Outpatient Medications: [...] , Rfl: ergocalciferol (Vitamin D-2) 1.25 MG (33766 UT) capsule, Take 1 capsule (1,250 mcg) by mouth 1 (one) time per week., Disp: , Rfl: HYDROcodone-acetaminophen (Alexandria) 7.5-325 mg tablet, Take 1 tablet by [...] of Kaya Grayson DO. documented in this encounterUnUniversity [facility] Work Phone: 1(226) 660-302901-04-2024 Instructions* Patient Instructions* Yunier Mathur MA - [...] time of your visit. documented in this encounterUnUniversity Hospitals [facility] Work Phone: 1(909) 567-154801-04-2024 Evaluation note* Diagnosis Hypertension, unspecified type Stage 3 chronic kidney disease, unspecified whether stage 3a or 3b CKD (CMS/HCC) Mixed hyperlipidemia Bilateral carotid artery disease, unspecified type (CMS/HCC) Smoker Tobacco use disorder Chest pressure Other chest pain documented in this encounter [facility] Work Phone: 1(560) 951-880312-20-2023 Miscellaneous Notes* Telephone Encounter - Claire Koroma - 05/20/2023 9:14 AM EST Margaret- records were not sent, so we shouldn't have to call and cancel. * Telephone Encounter - Diane Parada LPN - 05/20/2023 9:08 AM EST Mrs. Broussard called stating they contacted one of Dexter's previous physicians at [facility] spine clinic and he will arrange for Dexter to see [facility] neurosurgeon. Please cancel the referral to [facility] neuro[facility]geon perpatient request. Diane Parada RN * Telephone Encounter - Margaret Castle - 05/19/2023 2:11 PM EST Neelam when order is signed can you please send records to Dr Marvin at [facility] thank you! Facesheet in your box documented in this encounterCleveland Clinic Foundation12-19-2023 Miscellaneous Notes* Telephone Encounter - Julianna Yuan RN - 05/19/2023 10:45 AM EST Patient is requesting referral to Surgeon. He looks like had MRI of Lumbar spine on 02/20/2023 but no images in system. We do have report. documented in this encounterCleveland Clinic Foundation11-21-2023 Hospital Discharge instructions Patient Education 04/21/2023 09:12:49 [...] Follow these instructions at home: Medicines Take bmxx-jhg-yssyazx and prescription medicines only as told by [...] provider. Document Revised: 08/14/2021 Document Reviewed: 08/14/2021 [employer] Patient Education 2022 [employer]. Follow Up Care 02/11/2023 15:24:55 With:CLAIRE JAMES PA-C, URL Address: [address] [facility] [place] [address] [phone] When: Unknown [facility] 11-16-2023 Evaluation note* Encounter Date Diagnosis [...] in 6 months with repeat surveillance ABIs. [employer] Other 10-23-2023 [facility]* Encounter Date Diagnosis Assessment [...] will schedule this in the near future. [employer] Other 09-20-2023 Evaluation note* Encounter Date Diagnosis [...] once again all his questions were addressed. [employer] Other 09-13-2023 Hospital Discharge instructions Patient Education [...] urethra. Follow these instructions at home: Take fbmn-xwf-dbuekkx and prescription medicines only as told by [...] provider. Document Revised: 12/04/2021 Document Reviewed: 12/04/2021 [employer] Patient Education 2022 [employer]. Follow Up Care 01/05/2023 13:14:43 With:CLAIRE JAMES PA-C, URL Address: [address] [place] [place] [address] When:Within 8 Week(s) [facility] 08-22-2023 Miscellaneous Notes* Telephone Encounter - [...] Team tab: Yes Patient appears on the [employer] SW Report for a PHQ-9 score of [...] as appropriate. JENNIE Lange documented in this encounterCleveland Clinic Foundation08-21-2023 History of Present illness Narrative* Jose Nichols DO - 01/19/2023 12:49 PM EDT Images from the original note were not included. [facility] [...] lumbar decompression and partial discectomy L4-5 at [place] . Now follows with Pain Management in [place], [place]. Received opinion from his son's spine surgeon Dr. Farias in [place]. After review of imaging he was offered L4-S1 ALIF with posterior L4-S1 robotic assisted fusion. Since they do not live in [place] he was recommended to seek consultation at [facility]. Pain is located midline and bilateral low [...] spine interventions: -Lumbar procedures with Pain Management [facility] Dr. Oliva. -RFA ordered following MBB #2 01/07/22 BL L2, L3, L4, L5 MBB - 95% relief same day 12/17/21 BL L2, L3, L4, L5 MBB - 90% relief x 1 hour, then 50% for a few hours -Lumbar injections in [place] prior to surgery. Had at least a few injections, including RFA, LESI, SIJ, he remembers one of the injections helping. Prior spine surgery: L4-5 Previously treated by: -Pain Management at [facility] in [place], [place], Dr. Barbara Farias on 07/07/22 virtual [...] See below Social: Home life: Moved to [place] 2020. Litigation: No Workers' Compensation: No YELLOW [...] STRAIGHT LEG TEST: negative bilateral Hip: Negative KAUSIHK, CAREYIR SI joint: Negative Barbara Data Review: All images/reports listed below were personally reviewed by me unless otherwise indicated. [facility] records independently reviewed Imaging and outside records independently reviewed 11/26/21 MRI lumbar spine wo [facility]: The bones of the lumbar spine are [...] nerve root. 11/26/21 MRI prostate w/wo contrast, [facility]: Bones: No suspicious bony lesion. Normal [...] 2023 TIME: 12:50 PM documented in this encounterCleveland Clinic Foundation08-18-2023 Miscellaneous Notes* Telephone Encounter - Julianna Yuan RN - 01/16/2023 8:13 AM EDT Left message on voicemail for patient to call office back or to read [employer] message. * Telephone Encounter - Julianna Yuan [...] calling: self Call patient at: at home [phone] (home) [phone] (cell) Was an appointment scheduled: No Closing statement: Results or non-symptom based questions: Thank you for calling [facility], your call will be returned within the next business day. Paul Cat documented in this encounterCleveland Clinic Foundation08-08-2023 Miscellaneous Notes* Telephone Encounter - Lviier Barrera, MEHNAZ - 01/06/2023 8:13 AM EDT Please sign pended new order for Lumbar Spine MRI as it needs to state that it needs to be done with anesthesia. Thank you Livier Barrera RN documented in this encounterCleveland Clinic Foundation08-07-2023 Miscellaneous Notes* Telephone Encounter - Evelyn Chamberlain RN - 01/05/2023 4:52 PM EDT Spoke to patient's . Explained differences between anxiolysis and full anesthesia. Per patient's , patient needs full anesthesia-will not tolerate procedure with anxiolysis alone. Communicated to office that new order needs to be placed for MRI with anesthesia, and will need to be scheduled at [facility]. documented in this encounterCleveland Clinic Foundation07-05-2023 Hospital Discharge instructions Patient Education 12/03/2022 15:36:37 [...] to keep your urine pale yellow. ?Take idro-zve-dxeilaw or prescription medicines. ?Eat foods that are high in fiber, such as beans, whole grains, and fresh fruits and vegetables. ?Limit foods that are high in fat and processed sugars, such as fried or sweet foods. General instructions Take cnhx-frp-qdpvkae and prescription medicines only as told by [...] the muscles that help control urination. Take kgkc-yfn-jvmqlwz and prescription medicines only as told by your health care provider. Contact a health care provider if your symptoms do not improve or get worse. This information is not intended to replace advice given to you by your health care provider. Make sure you discuss any questions you have with your health care provider. Document Revised: 12/21/2020 Document Reviewed: 12/21/2020 [employer] Patient Education 2022 [employer]. Follow Up Care 10/28/2022 10:11:31 With:BRITNI ENCINAS, CLAIRE Boswell, URL Address: [address] [place] [address] When:Within 5 Week(s) [facility] 06-23-2023 Miscellaneous Notes* Telephone Encounter - [...] completed. This can only be completed at [facility] Main & orders must be revised to reflect such. Thanks, Kadi Cotton * Telephone Encounter - Kadi Cotton - 11/18/2022 2:17 PM EDT Per [facility] Neurosurgery, a more recent MRI is required before scheduling the patient to be seen. They are requesting new MRI orders to be placed before completing consult. Kadi Cotton documented in this encounterCleveland Clinic Foundation06-21-2023 History of Present illness Narrative* Elizabeth Freire [...] care plan for prostate cancer. Elizabeth Freire APRN.GILBERTO documented in this encounterCleveland Clinic Foundation06-21-2023 Evaluation note* Diagnosis Prostate cancer (HCC) Malignant neoplasm of prostate Stage 3 chronic kidney disease, unspecified whether stage 3a or 3b CKD (HCC) documented in this encounter [facility]06-20-2023 Nurse Note* Nadja Guardado - 11/18/2022 2:34 PM EDT Clinical questionnaires incomplete due to Patient was roomed by provider documented in this encounterCleveland Clinic Foundation06-20-2023 Nurse Note* Livier Barrera RN - 11/18/2022 1:32 PM EDT AUA 21 Livier Barrera RN documented in this encounterCleveland Clinic Foundation06-20-2023 History of Present illness Narrative* G Jose Nazario MD - 11/18/2022 1:15 PM EDT Radiation Oncology - Follow Up Note PATIENT NAME: Yesenia Broussard PATIENT DIAGNOSIS: Prostate adenocarcinoma, initial PSA 9.95, biopsy [place] score 3 + 4 = 7 (grade [...] ASSESSMENT/PLAN: Prostate adenocarcinoma, initial PSA 9.95, biopsy [place] score 3 + 4 = 7 (grade [...] by: Hyun Nazario MD cc: Shaikh Dotty [facility] [place] [address] documented in this encounterCleveland Clinic Foundation01-06-2023 Miscellaneous Notes* Telephone Encounter - STEPHANIE Lange [...] call back. JENNIE Lange documented in this encounterCleveland Clinic Foundation01-05-2023 Nurse Note* Kelly Hector - 06/05/2022 12:40 PM EST Back office UA test performed. Results entered in Quizrr and doctor notified. Kelly Hector MA documented in this encounterCleveland Clinic Foundation12-15-2022 Miscellaneous Notes* Telephone Encounter - Diane Parada LPN - 05/15/2022 1:51 PM EST Nena, pt's , notified to have Dexter complete the Cipro prescription and have urine rechecked in 2-3 weeks. Call transferred to [facility] to schedule lab appt. Dr. Nazario, please sign pended lab orders. Diane Parada LPN documented in this encounterCleveland Clinic Foundation12-15-2022 NoteCONSULTATION CONSULTATION DATE: 05/15/2022 HISTORY OF PRESENT [...] he has a son who lives in [place] with the same symptoms and gained relief after seeing a specialist and having surgery. Medications include Lyrica 75 mg t.i.d., [place] 5/325 t.i.d. and baclofen 10 mg q.h.s. [...] are going to spend three months in [place] with his son in early July and he wishes to see the specialist out there. I told him we would continue to medically manage him, which he does agree to. Patient will call the office for an appointment upon return from [place].[facility] [id number] History of Present illness Narrative* STEPHANIE Lange - 04/30/2022 3:01 PM EST SOCIAL WORK FOLLOW UP NOTE: [facility] Date of service:04/30/22 TOPICS ADDRESSED: community resources PLAN: Continue follow up as needed Assigned SW listed in Care Team tab: Yes SW completed and faxed a mileage reimbursement log to [facility] for the month of April 2022. JENNIE Lange documented in this encounterCleveland Clinic Foundation11-23-2022 History of Present illness Narrative* Hyun Nazario MD - 04/23/2022 12:00 AM EST [facility] Radiation Oncology Department RADIATION ONCOLOGY - COMPLETION NOTE PATIENT: YESENIA BROUSSARD: 1945 DATES OF TREATMENT: 03/18/2022- 04/23/2022 DIAGNOSIS: Prostate adenocarcinoma, initial PSA 9.95, biopsy [place] score 3 + 4 = 7 (grade [...] / DELIA :35 PM documented in this encounterCleveland Clinic Foundation11-21-2022 History of Present illness Narrative* Hyun Nazario MD - 04/21/2022 3:23 PM EST g Radiation Oncology - On Treatment Review (OTR) Note PATIENT NAME: Yesenia Broussard PATIENT DIAGNOSIS: Prostate adenocarcinoma, initial PSA 9.95, biopsy [place] score 3 + 4 = 7 (grade [...] treatment. Hyun Nazario MD documented in this encounterCleveland Clinic Foundation11-14-2022 History of Present illness Narrative* Hyun Nazario MD - 04/14/2022 3:05 PM EST Radiation Oncology - On Treatment Review (OTR) Note PATIENT NAME: Yesenia Broussard PATIENT DIAGNOSIS: Prostate adenocarcinoma, initial PSA 9.95, biopsy [place] score 3 + 4 = 7 (grade [...] outlined. Hyun Nazario MD documented in this encounterCleveland Clinic Foundation11-07-2022 History of Present illness Narrative* Hyun Nazario MD - 04/07/2022 11:03 AM EST Radiation Oncology - On Treatment Review (OTR) Note PATIENT NAME: Yesenia Broussard PATIENT DIAGNOSIS: Prostate adenocarcinoma, initial PSA 9.95, biopsy [place] score 3 + 4 = 7 (grade [...] outlined. Hyun Nazario MD documented in this encounterCleveland Clinic Foundation10-31-2022 History of Present illness Narrative* Hyun Nazario [...] outlined. Hyun Nazario MD documented in this encounterCleveland Clinic Foundation10-31-2022 History of Present illness Narrative* STEPHANIE Lange [...] March 2022. JENNIE Lange documented in this encounterCleveland Clinic Foundation10-27-2022 Nurse Note* Livier Barrera RN - 03/27/2022 [...] assist. Livier Barrera RN documented in this encounterCleveland Clinic Foundation10-24-2022 History of Present illness Narrative* Hyun Nazario MD - 03/24/2022 4:00 PM EDT Radiation Oncology - On Treatment Review (OTR) Note PATIENT NAME: Yesenia Broussard PATIENT DIAGNOSIS: Prostate adenocarcinoma, initial PSA 9.95, biopsy Nicola score 3 + 4 = 7 (grade group 2), clinical stage T1b, N0, M0, stage IIB [T1-T2, N0, M0, PSA <20, GG 2] (AJCC 8th ed.), s/p TURP. Prostate cancer (C61), 2018 NCCN Risk Group: Unfavorable Intermediate Risk Group [...] outlined. Hyun Nazario MD documented in this encounterCleveland Clinic Foundation10-18-2022 History of Present illness Narrative* Hyun Nazario [...] 8th ed.), s/p TURP. Prostate cancer (C61), 2018 NCCN Risk Group: Unfavorable Intermediate Risk Group [...] prescribed. Hyun Nazario MD documented in this encounterCleveland Clinic Foundation10-18-2022 Miscellaneous Notes* Telephone Encounter - Diane Parada LPN - 03/18/2022 8:31 AM EDT CBC order the second week during radiation is pending your approval. Diane Parada LPN documented in this encounterCleveland Clinic Foundation10-13-2022 NoteCONSULTATION PROCEDURE DATE: 03/13/2022 PREOPERATIVE DIAGNOSIS: Bilateral [...] the procedure well with no overt complications.[facility] [id number] NoteCONSULTATION CONSULTATION DATE: 03/13/2022 HISTORY OF PRESENT [...] current medications include Lyrica 75 mg t.i.d., [place] 5/325 t.i. d., baclofen 10 mg q.h.s. [...] and will return in six weeks' time.[facility] [id number] History of Present illness Narrative* STEPHANIE Lange [...] as appropriate. JENNIE Lange documented in this encounterCleveland Clinic Foundation10-12-2022 History of Present illness Narrative* Hyun Nazario MD - 03/12/2022 12:00 AM EDT YESENIA BROUSSARD [id number] 03/12/2022 [facility] Department of Radiation Oncology Treatment Planning [...] Nazario M.D. 21:57 PM documented in this encounterCleveland Clinic Foundation10-04-2022 Miscellaneous Notes* Telephone Encounter - STEPHANIE Lange [...] as appropriate. JENNIE Lange documented in this encounterCleveland Clinic Foundation10-03-2022 History of Present illness Narrative* Hyun Nazario MD - 03/03/2022 10:42 AM EDT Unable to complete simulation due to anxiety related to claustrophobia. Prescription for Valium given. We will reschedule. documented in this encounterCleveland Clinic Foundation09-27-2022 Miscellaneous Notes* Telephone Encounter - Margaret Haas - 02/25/2022 2:09 PM EDT Patient is scheduled for Thursday patient could not come any other day due to being out of town at the end of the week 8:00AM sim thursday * Telephone Encounter - Margaret Haas - 02/25/2022 9:23 AM EDT Called [...] him to the eye doctor this a.m. Margaret: Will you please call and reschedule SIM? Thanks Diane Parada LPN documented in this encounterCleveland Clinic Foundation09-12-2022 Miscellaneous Notes* Telephone Encounter - Livier Cook [...] Thanks Maddy Waite MA documented in this encounterCleveland Clinic Foundation08-25-2022 NoteCONSULTATION CONSULTATION DATE: 01/23/2022 HISTORY OF PRESENT [...] well enough [facility] [employer] [facility] [place]. Sitting on [...] ice. Medications include baclofen 10 mg q.h.s., [place] 5/325 t.i.d., Lyrica 75 mg b.i.d. Patient's [...] followed up in the clinic post procedure.[facility] [id number] Miscellaneous Notes* Telephone Encounter - Diane Parada [...] advise. Diane Parada LPN documented in this encounterCleveland Clinic Foundation07-28-2022 NoteCONSULTATION CONSULTATION DATE: 12/26/2021 HISTORY OF PRESENT [...] His medications include baclofen 10 mg q.h.s., [place] 5/325 t.i.d. and Lyrica 50 mg b.i.d. [...] and he is in agreement to this.[facility] [id number] Nurse Note* Diane Parada LPN - 12/10/2021 9:20 AM EDT AUA= 10 documented in this encounterCleveland Clinic Foundation07-12-2022 History of Present illness Narrative* Hyun Nazario MD - 12/10/2021 9:00 AM EDT Radiation Oncology - Prostate Cancer New Patient/Consult Note PATIENT NAME: Yesenia Broussard PATIENT REQUESTING PROVIDER: Dr. Johnston DIAGNOSIS: 76 year old male with prostate adenocarcinoma, initial PSA 9.95, biopsy [place] score 3 + 4 = 7 (grade [...] or LVI. 6 to 10% percentage of Nicola pattern 4 Repeat PSA 11/04/2021 3.73. MRI [...] MD cc: Shaikh Dotty [address] [place] [address] Barbara Johnston [address] [facility] [address] documented in this encounterCleveland Clinic Foundation06-06-2022 Evaluation + Plan note Diagnostic Tests Pending * PSA Total 11/04/[address] [facility] Hospital Discharge instructions Patient Education 11/04/2021 [...] 05/18/2006 Document Revised: 02/04/2019 Document Reviewed: 04/17/2017 [employer] Patient Education 2020 [employer]. 11/04/2021 10:39:39 Benign Prostatic Hyperplasia Benign Prostatic [...] urethra. Follow these instructions at home: Take ieql-goi-eoiyjpl and prescription medicines only as told by [...] 05/18/2006 Document Revised: 04/12/2019 Document Reviewed: 06/22/2017 [employer] Patient Education 2020 [employer] 11/04/2021 10:39:34 Prostate Cancer Prostate Cancer The [...] who: Are older than age 65. Are -Indonesian. Are obese. Have a family history of [...] cells. Follow these instructions at home: Take fiby-fbk-zimdpaa and prescription medicines only as told by [...] 05/18/2006 Document Revised: 04/30/2018 Document Reviewed: 01/26/2017 [employer] Patient Education [employer]. Follow Up Care 07/01/2021 09:43:21 With:PRESTON MAK, Barbara Warner, URL Address: [facility] [address] [place] [phone] When: Unknown Comments:Will schedule MRI of prostate w/wo and Perineal prostate biopsy. [facility] 05-26-2022 Evaluation note* Encounter Date Diagnosis [...] statins. Monitor LFTs and lipid profile periodically. [employer] Other Evaluation + Plan note Future Appointments Appointment Date:01/06/2023 09:15:00 AM Scheduled Provider:CLAIRE JAMES PA-C Location:[facility] Appointment Type:URO Office Visit [facility] evaluation + Plan note Future Appointments Appointment Date:04/21/2023 08:30:00 AM Scheduled Provider:CLAIRE JAMES PA-C Location:[facility] Appointment Type:URO Office Visit [facility] evaluation + Plan note Future Appointments Appointment Date:07/07/2023 09:00:00 AM Scheduled Provider:CLAIRE JAMES PA-C Location:[facility] Appointment Type:URO Office Visit Diagnostic Tests Pending * Electrolyte Panel 04/21/23 [facility] evaluation + Plan note Future Appointments Appointment Date:07/07/2023 09:00:00 AM Scheduled Provider:CLAIRE JAMES PA-C Location:[facility] Appointment Type:URO Office Visit Diagnostic Tests Pending * Urine Culture [facility]ments Appointment Date:04/01/2024 10:45:00 AM Scheduled Provider:Barbara JOHNSTON MD Location:[facility] Appointment Type:URO Office Visit Diagnostic Tests Pending * PSA Total 12/31/23 [facility] evaluation + Plan note Future Appointments Appointment Date:04/18/2024 12:45:00 PM Scheduled Provider:Barbara JOHNSTON MD Location:[facility] Appointment Type:URO Office Visit Diagnostic Tests Pending * Urine Culture 04/07/24 [facility] evaluation + Plan note Future Appointments Appointment Date:04/18/2024 12:45:00 PM Scheduled Provider:Barbara JOHNSTON MD Location:[facility] Appointment Type:URO Office Visit [facility] evaluation + Plan note Future Appointments Appointment Date:04/21/2025 10:15:00 AM Scheduled Provider:Barbara JOHNSTON MD Location:[facility] Appointment Type:URO Office Visit Diagnostic Tests Pending * PSA Total 04/18/24 [facility] evaluation + Plan note Future Appointments Appointment Date:04/21/2025 10:15:00 AM Scheduled Provider:Barbara JOHNSTON MD Location:[facility] Appointment Type:URO Office Visit Diagnostic Tests Pending * Urine Culture 08/08/24 [facility] evaluation + Plan note Future Appointments Appointment Date:04/21/2025 10:15:00 AM Scheduled Provider:Barbara JOHNSTON MD Location:[facility] Appointment Type:URO Office Visit Diagnostic Tests Pending * Urine Culture 08/22/24 [facility] evaluation + Plan note Future Appointments Appointment Date:04/21/2025 10:15:00 AM Scheduled Provider:Barbara JOHNSTON MD Location:[facility] Appointment Type:URO Office Visit Diagnostic Tests Pending * Urine Cytology ([facility]) 08/29/24 [facility] evaluation note* Diagnosis Malignant neoplasm of prostate (HCC)- Primary Malignant neoplasm of prostate documented in this encounter [facility]* Diagnosis Malignant neoplasm of prostate (HCC)- Primary Malignant neoplasm of prostate [facility] encounter [facility]* Diagnosis Malignant neoplasm of prostate (HCC)- Primary Malignant neoplasm of prostate [facility] encounter [facility]* Diagnosis Malignant neoplasm of prostate (HCC)- Primary Malignant neoplasm of prostate documented in this encounter [facility]* Diagnosis Malignant neoplasm of prostate (HCC) Malignant neoplasm of prostate documented in this encounter [facility] note* Diagnosis Malignant neoplasm of prostate (HCC)- Primary Malignant neoplasm of prostate documented in this encounter [facility] note* Diagnosis Malignant neoplasm of prostate (HCC)- Primary Malignant neoplasm of prostate documented in this encounter [facility] note* Diagnosis Malignant neoplasm of prostate (HCC)- Primary Malignant neoplasm of prostate documented in this encounter [facility] noteNo assessment information [facility] Work Phone: Evaluation note* Diagnosis Hematuria, unspecified type- Primary Malignant neoplasm of prostate (HCC) Malignant neoplasm of prostate documented in this encounter [facility] note* Diagnosis Urinary tract infection without hematuria, site unspecified- Primary documented in this encounter [facility] note* Diagnosis History of prostate cancer- Primary Personal history of malignant neoplasm of prostate Spinal arthritis Spondylosis of unspecified site without mention of myelopathy Spinal stenosis of lumbar region, unspecified whether neurogenic claudication present documented in this encounter [facility] note* Diagnosis Spinal stenosis of lumbar region without neurogenic claudication- Primary Spinal stenosis, lumbar region, without neurogenic claudication documented in this encounter [facility] note* Diagnosis Spinal stenosis of lumbar region, unspecified whether neurogenic claudication present- Primary documented in this encounter [facility] note* Diagnosis Spinal stenosis, lumbar region with neurogenic claudication- Primary [place]am[place] stenosis of lumbar region Spinal stenosis, lumbar region, without neurogenic claudication Peripheral artery disease (HCC) Peripheral vascular disease, unspecified Prostate cancer (HCC) Malignant neoplasm of prostate documented in this encounter [facility] noteNo InformationNomissouri baptist medical center [employer] Other Evaluation note* Diagnosis Spinal stenosis, lumbar region with neurogenic claudication- Primary [place] stenosis of lumbar region Spinal stenosis, lumbar region, without neurogenic claudication documented in this encounter [facility] note* Diagnosis Spondylolisthesis of lumbar region- Primary Acquired spondylolisthesis documented in this encounter [facility] note* Diagnosis Hypertension, unspecified type Mixed hyperlipidemia Bilateral carotid artery disease, unspecified type (CMS/HCC) History of SC (myocardial infarction) Old myocardial infarction BMI 28.0-28.9,adult ASHD (arteriosclerotic heart disease) Coronary atherosclerosis of unspecified type of vessel, [place] or graft PVD (peripheral vascular disease) (CMS/HCC) Unspecified peripheral vascular disease Smoker Tobacco use disorder Chest pain, unspecified type documented in this encounter [facility] Work Phone: Evaluation note* Diagnosis Onset Date Resolution Status Current every day smoker acu te PAD (peripheral artery disease) acute [facility] Work Phone: Evaluation note* Diagnosis Onset Date Resolution Status Anemia of renal disease acut e CKD (chronic kidney disease) stage 3, GFR 30-59 ml/min acute [id number] acute Secondary hyperparathyroidism acute UTI (urinary tract infection) [facility] Work Phone: Evaluation note* Diagnosis Primary hypertension (CMS/HCC)- Primary Unspecified essential hypertension Stage 3a chronic kidney disease (HCC) (CMS/HCC) Mixed hyperlipidemia (CMS/HCC) Mixed hyperlipidemia Claudication (CMS/[facility]) Unspecified peripheral vascular disease Peripheral vascular disease (CMS/HCC) Unspecified peripheral vascular disease Bradycardia Other specified cardiac dysrhythmias Prostate cancer (CMS/HCC) Malignant neoplasm of prostate Peripheral vascular disease (CMS/HCC)- Primary Unspecified peripheral vascular disease Stage 3a chronic kidney disease (HCC) (CMS/HCC) Primary hypertension (CMS/HCC) Unspecified essential hypertension Cerebrovascular accident (CVA), unspecified mechanism (CMS/HCC) Tobacco abuse Tobacco use disorder Chronic kidney disease, stage 3b (N18.32) Peripheral vascular disease, unspecified (I73.9) Peripheral vascular disease, unspecified Malignant neoplasm of prostate (C61) Malignant neoplasm of prostate Coronary artery disease involving t[place] coronary artery of t[place]ina heart without angina pectoris (CMS/HCC) H/O prostate cancer Mixed hyperlipidemia (CMS/HCC) Mixed hyperlipidemia Chronic bilateral low back pain with bilateral sciatica Coronary artery disease involving [place] coronary artery of t[place] heart without angina pectoris (CMS/HCC)- Primary PAD (peripheral artery disease) (CMS/HCC) Unspecified peripheral vascular disease Primary hypertension (CMS/HCC) Unspecified essential hypertension Stage 3a chronic kidney disease (HCC) (CMS/HCC) Lumbar stenosis with neurogenic claudication Mixed hyperlipidemia (CMS/HCC) Mixed hyperlipidemia Elevated random blood glucose level Unintentional weight change Gastroesophageal reflux disease without esophagitis Esophageal reflux Coronary artery disease involving t[place] coronary artery of t[place] heart without angina pectoris (CMS/HCC)- Primary Stage 3a chronic kidney disease (HCC) (CMS/HCC) Lumbar stenosis with neurogenic claudication Primary hypertension (CMS/HCC)- Primary Unspecified essential hypertension Coronary artery disease involving t[place] coronary artery of t[place] heart without angina pectoris (CMS/HCC) Stage 3a chronic kidney disease (HCC) (CMS/HCC) Gastroesophageal reflux disease without esophagitis Esophageal reflux Tobacco abuse Tobacco use disorder Prostate cancer (CMS/HCC) Malignant neoplasm of prostate Benign prostatic hyperplasia with lower urinary tract symptoms, symptom details unspecified Mixed hyperlipidemia (CMS/HCC)- Primary Mixed hyperlipidemia Primary hypertension (CMS/HCC) Unspecified essential hypertension Stage 3a chronic kidney disease (HCC) (CMS/HCC) documented in this encounter [facility] HealthcareEvaluation note* Diagnosis Primary hypertension (CMS/HCC)- Primary Unspecified essential hypertension Coronary artery disease involving t[place] coronary artery of t[place] heart without angina pectoris (CMS/HCC) Stage 3a chronic kidney disease (HCC) (CMS/HCC) Gastroesophageal reflux disease without esophagitis Esophageal reflux Tobacco abuse Tobacco use disorder Prostate cancer (CMS/HCC) Malignant neoplasm of prostate Benign prostatic hyperplasia with lower urinary tract symptoms, symptom details unspecified documented in this encounter [facility] HealthcareEvaluation note* Diagnosis Primary hypertension (CMS/HCC) Unspecified essential hypertension documented in this encounter [facility] HealthcareEvaluation note* Diagnosis Onset Date Resolution Status Admit Date Anemia of renal disease acute M 2024 10:35am CKD (chronic kidney disease) stage 3, GFR 30-59 ml/min acute August 15, 2024 10:35am Hypertensive chronic kidney disease with stage 1 through stage 4 chronic ki acute August 15, 2024 10:35am Microscopic hematuria acute Jul 10:35am Secondary hyperparathyroidism acute August 15, 2024 10:35am [facility] Work Phone: Evaluation note* Diagnosis Mixed hyperlipidemia- Primary Bilateral carotid artery disease, unspecified type Hypertension, unspecified type BMI 28.0-28.9,adult Smoker Tobacco use disorder Prostate cancer (Multi) Malignant neoplasm of prostate Chronic kidney disease, stage 3b (Multi) ASHD (arteriosclerotic heart disease) Coronary atherosclerosis of unspecified type of vessel, [place] or graft PVD (peripheral vascular disease) ([facility]) Unspecified peripheral vascular disease documented in this encounter [facility] Work Phone: Hisnxtc general Narrative - Reported* Type Description Date [...] History PROSTATE SURGERY Hospitalization History SEE ABOVE [facility] Other Hisrbpy general Narrative - Reported* Type Description Date [...] ANGIOPLASTY LT 03/2023 Hospitalization History SEE ABOVE [facility] Other Hospital course Narrative No data available for this section [facility] Hospital Discharge instructions No data available for this section [facility] data available for this section [facility] (narrative)* Consultation (Routine) - Authorized Specialty Diagnoses / Procedures Referred By Renata staton Referred To Contact Cardiology Diagnoses Hypertension, unspecified type Mixed hyperlipidemia Bilateral carotid artery disease, unspecified type (CMS/HCC) Procedures Follow Up In Cardiology Chaim Grayson DO [address] [address], [address] [address] Chaim Grayson DO [address] [facility] 2, [address] [address] Referral ID Status Reason Start Date Expiration Date V isits Requested Visits Authorized [id number] Authorized 06/04/2023 06/03/2024 1 1 * Cardiovascular (Routine) - Pending Review Specialty Diagnoses / Procedures Referred By Renata staton Referred To Contact Diagnoses Mixed hyperlipidemia Bilateral carotid artery disease, unspecified type (CMS/HCC) Procedures ECG 12 Lead Chaim Grayson [address] [facility] 2, [address] [place] [address] Referral ID Status Reason Start Date Expiration Date V isits Requested Visits Authorized [id number] Pending Review 06/04/2023 06/03/2024 1 1 * Consultation (Routine) - Authorized Specialty Diagnoses / Procedures Referred By Contac t Referred To Contact Cardiology Diagnoses Hypertension, unspecified type Bilateral carotid artery disease, unspecified type (CMS/HCC) Procedures Follow Up In Cardiology Chaim Grayson [address] [facility] 2, [address] [place] [address] Referral ID Status Reason Start Date Expiration Date V isits Requested Visits Authorized [id number] Authorized 06/04/2023 06/03/2024 1 1 * Cardiac Stress Testing (Routine) - Pending Review Specialty Diagnoses / Procedures Referred By Contac t Referred To Contact Radiology Diagnoses Hypertension, unspecified type Bilateral carotid artery disease, unspecified type (CMS/HCC) Chest pressure Procedures Nuclear Stress Test CHG MYOCARDIAL SPECT MULTIPLE STUDIES CHG MYOCARDIAL SPECT SINGLE STUDY AT REST OR STRESS Chaim GraysonDO [address] [facility] 2, [address] [place] [address] Referral ID Status Reason Start Date Expiration Date V isits Requested Visits Authorized [id number] Pending Review 06/04/2023 06/03/2024 5 5 [facility] Work Phone: Reason for referral (narrative)* Consultation (Routine) - Pending Review Specialty Diagnoses / Procedures Referred By Contac t Referred To Contact Urology Diagnoses Prostate cancer (CMS/HCC) Benign prostatic hyperplasia with lower urinary tract symptoms, symptom details unspecified Procedures ID OFFICE/OUTPATIENT NEW HIGH MDM 60 MINUTES Nasir Ward, VALENTIN [address] [place] [id number] Travis Bryant MD [address] [place] [address] Referral ID Status Reason Start Date Expiration Date Visits Requested Visits Authorized [id number] Pending Review Specialty Services Required 01/20/2024 07/18/2024 1 1 Scheduling Instructions Please include OV note from today and from Dr. Johnston office [facility] Summary Purpose Family History No Family History [...] Unknown Unknown natural son Heart disease Unknown Relationship Condition Age at Onset Recorded Date/T yudi father Parkinson's disease Unknown Diabetes mellitus Unknown mother Heart disease Unknown father Unknown Parkinson's disease Unknown mother Hypertension Unknown Heart disease Unknown Family history of mental disorder Unknown Unknown son Heart disease Unknown Advance Directives No [...] 11A Reason for Visit Current every day sm oker PAD (peripheral artery disease) Chief Complaint N18.30 I12.9 N25.81 E78.5 Chief Complaint N18.30 I12.9 N25.81 E78.5 RENAL 1 year follow up Reason for Visit Anemia of renal dise ase CKD (chronic kidney disease) stage 3, GFR 30-59 ml/min [id number] Secondary hyperparathyroidism UTI (urinary tract infection) Chief Complaint Admit Date L eye irritation July 14, 2024 10:56am Chief Complaint Admit Date L eye irritation July 14, 2024 10:56am N18.30 N18.9 D63.1 N25.81 I12.9 August 102024 10:28am Chief Complaint Admit Date L eye irritation July 14, 2024 10:56am N18.30 N18.9 D63.1 N25.81 I12.9 August 102024 10:28am RENAL 6 MONTH F/U August 15, 2024 10: 35am Reason for Visit Admit Date Anemia of renal disease August 15, 2024 10:35am CKD (chronic kidney disease) stage 3, GF R 30-59 ml/min August 15, 2024 10:35am Hypertensive chronic kidney disease with stage 1 through stage 4 chronic ki August 15, 2024 10:35am Microscopic hematuria March 17th, 2025 1 0:35am Secondary hyperparathyroidism July 10:35am Reason for Referral Specialty Diagnoses / Procedures Referred By Contac t Referred To Contact Diagnoses Bilateral carotid artery disease, unspecified type ([facility]) History of SC (myocardial infarction) ASHD (arteriosclerotic heart disease) PVD (peripheral vascular disease) ([facility]) Chest pain, unspecified type Procedures ECG 12 Lead Chaim Grayson, [address] [place] [address] 2, [address] [address] Referral ID Status Reason Start Date Expiration Date V isits Requested Visits Authorized [id number] Authorized 08/18/2023 08/17/2024 1 1 Specialty Diagnoses / Procedures Referred By Contac t Referred To Contact Cardiology Diagnoses Bilateral carotid artery disease, unspecified type ([facility]) Procedures Follow Up In Cardiology KenanChaim aguirre, [address] [place] [address] 2, [address] [address] Chaim Grayson, [address] [place] [address] 2, [address] [address] Referral ID Status Reason Start Date Expiration Date V isits Requested Visits Authorized [id number] Authorized 08/18/2023 08/17/2024 1 1 Specialty Diagnoses / Procedures Referred By Contac t Referred To Contact [facility] [place] Diagnoses Spondylolisthesis of lumbar region Procedures CONSULT TO [facility] (CHRONIC PAIN) OFFICE/OUTPATIENT [facility] 60 MINUTES Kodi Reynolds MD [address] [place], [place] [id number] Referral ID Status Reason Start Date Expiration Date Visits Requested Visits Authorized [id number] Pending Review PCP Requested Referral 06/12/2023 06/11/2024 1 1 Specialty Diagnoses / Procedures Referred By Contac t Referred To Contact Diagnoses Spinal stenosis, lumbar region with neurogenic claudication Foraminal stenosis of lumbar region Procedures CONSULT TO SPINE SURGERY OFFICE/OUTPATIENT [facility] 60-74 MINUTES Jose Nichols DO [address] [place] [address] Referral ID Status Reason Start Date Expiration Date Visits Requested Visits Authorized [id number] Pending Review PCP Requested Referral 05/18/2024 1 1 Specialty Diagnoses / Procedures Referred By Contac t Referred To Contact MR IMAGING Diagnoses Spinal stenosis of lumbar region, unspecified whether neurogenic claudication present Procedures MRI LUMBAR SPINE WO/W IVCON MRI SPINAL CANAL LUMBAR W/O & W/CONTR MATRL Hyun Nazario MD [address] [place] [address] [place] [address] Mr Imaging Referral ID Status Reason Start Date Expiration Date Visits Requested Visits Authorized [id number] Pending Review Auto-Generat ed Referral 11/19/2022 12/19/2023 1 1 Specialty Diagnoses / Procedures Referred By Contac t Referred To Contact Neurosurgery Diagnoses Spinal arthritis Procedures CONSULT TO NEUROSURGERY OFFICE/OUTPATIENT [facility] 60-74 MINUTES Hyun Nazario MD [address] [place] [address] [place] [address] Referral ID Status Reason Start Date Expiration Date Visits Requested Visits Authorized [id number] Pending Review PCP Requested Referral 11/18/2022 11/18/2023 [...] section and content) DATE CREATED AUTHOR 06/12/2021 [facility] DATE CREATED AUTHOR AUTHOR'S ORGANIZ ATION 03/27/2022 [facility] DATE CREATED AUTHOR AUTHOR'S ORGANIZ ATION 11/07/2022 [facility] DATE CREATED AUTHOR AUTHOR'S ORGANIZ ATION 01/06/2023 [facility] DATE CREATED AUTHOR AUTHOR'S ORGANIZ ATION 06/16/2023 [facility] DATE CREATED AUTHOR AUTHOR'S ORGANIZ ATION 06/29/2023 [facility] DATE CREATED AUTHOR AUTHOR'S ORGANIZ ATION 08/17/2023 [facility] DATE CREATED AUTHOR AUTHOR'S ORGANIZ ATION 04/11/2024 [facility] DATE CREATED AUTHOR AUTHOR'S ORGANIZ ATION 04/21/2024 [facility] DATE CREATED AUTHOR AUTHOR'S ORGANIZ ATION 07/15/2024 [facility] DATE CREATED AUTHOR AUTHOR'S ORGANIZ ATION 08/14/2024 [facility] DATE CREATED AUTHOR AUTHOR'S ORGANIZ ATION 08/15/2024 [facility] DATE CREATED AUTHOR AUTHOR'S ORGANIZ ATION 08/20/2024 [facility] DATE CREATED AUTHOR AUTHOR'S ORGANIZ ATION 08/26/2024 [facility] DATE CREATED AUTHOR AUTHOR'S ORGANIZ ATION 08/30/2024 [facility] DATE CREATED AUTHOR AUTHOR'S ORGANIZ ATION 09/02/2024 [facility] DATE CREATED AUTHOR AUTHOR'S ORGANIZ ATION 09/10/2024 [facility] DATE CREATED AUTHOR AUTHOR'S ORGANIZ ATION 11/09/2024 [facility] DATE CREATED AUTHOR AUTHOR'S ORGANIZ ATION 01/19/2025 [facility] DATE CREATED AUTHOR AUTHOR'S ORGANIZ ATION 02/05/2025 [facility] REASON FOR VISIT (unrecogniz ed section and [...] HIGH MDM 60-74 MINUTES Hyun Nazario MD [address] [place] [address] [place] [address] Referral ID Status Reason Start Date Expiration Date Visits Requested Visits Authorized [id number] Pending Review PCP Requested Referral 11/18/2022 11/18/2023 1 1 Reason Comments Appointment Confirmation Reason Comments Establish Care [place] pvd HTN abn e kg Specialty Diagnoses / Procedures Referred By Contac t Referred To Contact Diagnoses Mixed hyperlipidemia Bilateral carotid artery disease, unspecified type (CMS/HCC) Procedures ECG 12 Lead Chaim Grayson [address] [place] [address] [address], [address] [id number] Referral ID Status Reason Start Date Expiration Date V isits Requested Visits Authorized [id number] Pending Review 06/04/2023 06/03/2024 1 1 Reason Comments Low Back Pain New Patient Evaluation New Patient Specialty Diagnoses / Procedures Referred By Contac t Referred To Contact Radiology Diagnoses Hypertension, unspecified type Bilateral carotid artery disease, unspecified type (CMS/HCC) Chest pressure Procedures Nuclear Stress Test CHG MYOCARDIAL SPECT MULTIPLE STUDIES CHG MYOCARDIAL SPECT SINGLE STUDY AT REST OR STRESS Chaim Grayson, [address] [place] [address] 2, [address] [phone] Referral ID Status Reason Start Date Expiration Date V isits Requested Visits Authorized [id number] Authorized 06/04/2023 06/03/2024 5 5 Reason Comments Follow-up 1yr Specialty Diagnoses / Procedures Referred By Contac t Referred To Contact Cardiology Diagnoses Hypertension, unspecified type Mixed hyperlipidemia Bilateral carotid artery disease, unspecified type (CMS/HCC) Procedures Follow Up In Cardiology Chaim Grayson, [address] [place] [address] 2, [address] [id number] Chaim Grayson, [address] [place] [address] 2, [address] [address] Referral ID Status Reason Start Date Expiration Date V isits Requested Visits Authorized [id number] Authorized 06/04/2023 06/03/2024 1 1 Reason Comments Prostate Cancer Specialty Diagnoses / Procedures Referred By Contac t Referred To Contact Radiation Oncology / RADIATION ONCOLOGY Diagnoses Malignant neoplasm of prostate jeovany treating prostate Procedures SIMULATION EVITA IMRT 28fractions Hyun Nazario MD [address] [facility] [place] [address] Hyun Nazario MD [address] [facility] [place] [place] [address] Referral ID Status Reason Start Date Expiration Date Visits Re quested Visits Authorized [id number] Closed 02/25/2022 06/20/2022 29 29 Reason Comments Med Refill Reason Onset Date Comments Med Refill 02/02/2024 Reason Onset Date Comments Med Refill 02/18/2024 Reason Comments Follow-up Reason Comments Annual Exam 1y Follow up for Cor onary Artery Disease Specialty Diagnoses / Procedures Referred By Renata staton Referred To Contact Cardiology Diagnoses Bilateral carotid artery disease, unspecified type Procedures Follow Up In Cardiology Chaim Grayson, DO [address] [place] [address] [address], [address] [address] Phone: tel: fax: Chaim Grayson, DO [address] [facility] 2, [facility] [address] [place] [address] Phone: tel: fax: Referral ID Status Reason Start Date Expiration Date V isits Requested Visits Authorized [id number] Authorized 08/18/2023 08/17/2024 1 1 Reason Onset Date Comments Med Refill 09/12/2024 Reason Comments Prostate Cancer Follow up Source Comments (unrecognize d section and content) In the event this informatio n is protected by the Federal Confidentiality of Alcohol and Drug Abuse Patient Records regulations: The Federal rules restrict any use of the information to criminally investigate or prosecute any alcohol or drug abuse patient.[facility] FoundationIn the event this information is protected by the Federal Confidentiality of Alcohol and Drug Abuse Patient Records regulations: The Federal rules restrict any use of the information to criminally investigate or prosecute any alcohol or drug abuse patient.[facility] FoundationIn the event this information is protected by the Federal Confidentiality of Alcohol and Drug Abuse Patient Records regulations: The Federal rules restrict any use of the information to criminally investigate or prosecute any alcohol or drug abuse patient.[facility] FoundationIn the event this information is protected by the Federal Confidentiality of Alcohol and Drug Abuse Patient Records regulations: The Federal rules restrict any use of the information to criminally investigate or prosecute any alcohol or drug abuse patient.[facility] FoundationIn the event this information is protected by the Federal Confidentiality of Alcohol and Drug Abuse Patient Records regulations: The Federal rules restrict any use of the information to criminally investigate or prosecute any alcohol or drug abuse patient.[facility] FoundationIn the event this information is protected by the Federal Confidentiality of Alcohol and Drug Abuse Patient Records regulations: The Federal rules restrict any use of the information to criminally investigate or prosecute any alcohol or drug abuse patient.[facility] FoundationIn the event this information is protected by the Federal Confidentiality of Alcohol and Drug Abuse Patient Records regulations: The Federal rules restrict any use of the information to criminally investigate or prosecute any alcohol or drug abuse patient.[facility] FoundationIn the event this information is protected by the Federal Confidentiality of Alcohol and Drug Abuse Patient Records regulations: The Federal rules restrict any use of the information to criminally investigate or prosecute any alcohol or drug abuse patient.[facility] FoundationIn the event this information is protected by the Federal Confidentiality of Alcohol and Drug Abuse Patient Records regulations: The Federal rules restrict any use of the information to criminally investigate or prosecute any alcohol or drug abuse patient.[facility] FoundationIn the event this information is protected by the Federal Confidentiality of Alcohol and Drug Abuse Patient Records regulations: The Federal rules restrict any use of the information to criminally investigate or prosecute any alcohol or drug abuse patient.[facility] FoundationIn the event this information is protected by the Federal Confidentiality of Alcohol and Drug Abuse Patient Records regulations: The Federal rules restrict any use of the information to criminally investigate or prosecute any alcohol or drug abuse patient.[facility] FoundationIn the event this information is protected by the Federal Confidentiality of Alcohol and Drug Abuse Patient Records regulations: The Federal rules restrict any use of the information to criminally investigate or prosecute any alcohol or drug abuse patient.[facility] FoundationIn the event this information is protected by the Federal Confidentiality of Alcohol and Drug Abuse Patient Records regulations: The Federal rules restrict any use of the information to criminally investigate or prosecute any alcohol or drug abuse patient.[facility] FoundationIn the event this information is protected by the Federal Confidentiality of Alcohol and Drug Abuse Patient Records regulations: The Federal rules restrict any use of the information to criminally investigate or prosecute any alcohol or drug abuse patient.[facility] FoundationIn the event this information is protected by the Federal Confidentiality of Alcohol and Drug Abuse Patient Records regulations: The Federal rules restrict any use of the information to criminally investigate or prosecute any alcohol or drug abuse patient.[facility] FoundationIn the event this information is protected by the Federal Confidentiality of Alcohol and Drug Abuse Patient Records regulations: The Federal rules restrict any use of the information to criminally investigate or prosecute any alcohol or drug abuse patient.[facility] FoundationIn the event this information is protected by the Federal Confidentiality of Alcohol and Drug Abuse Patient Records regulations: The Federal rules restrict any use of the information to criminally investigate or prosecute any alcohol or drug abuse patient.[facility] FoundationIn the event this information is protected by the Federal Confidentiality of Alcohol and Drug Abuse Patient Records regulations: The Federal rules restrict any use of the information to criminally investigate or prosecute any alcohol or drug abuse patient.[facility] FoundationIn the event this information is protected by the Federal Confidentiality of Alcohol and Drug Abuse Patient Records regulations: The Federal rules restrict any use of the information to criminally investigate or prosecute any alcohol or drug abuse patient.[facility] FoundationIn the event this information is protected by the Federal Confidentiality of Alcohol and Drug Abuse Patient Records regulations: The Federal rules restrict any use of the information to criminally investigate or prosecute any alcohol or drug abuse patient.[facility] FoundationIn the event this information is protected by the Federal Confidentiality of Alcohol and Drug Abuse Patient Records regulations: The Federal rules restrict any use of the information to criminally investigate or prosecute any alcohol or drug abuse patient.[facility] the event this information is protected by the Federal Confidentiality of Alcohol and Drug Abuse Patient Records regulations: The Federal rules restrict any use of the information to criminally investigate or prosecute any alcohol or drug abuse patient.[facility] FoundationIn the event this information is protected by the Federal Confidentiality of Alcohol and Drug Abuse Patient Records regulations: The Federal rules restrict any use of the information to criminally investigate or prosecute any alcohol or drug abuse patient.[facility] FoundationIn the event this information is protected by the Federal Confidentiality of Alcohol and Drug Abuse Patient Records regulations: The Federal rules restrict any use of the information to criminally investigate or prosecute any alcohol or drug abuse patient.[facility] FoundationIn the event this information is protected by the Federal Confidentiality of Alcohol and Drug Abuse Patient Records regulations: The Federal rules restrict any use of the information to criminally investigate or prosecute any alcohol or drug abuse patient.[facility] FoundationIn the event this information is protected by the Federal Confidentiality of Alcohol and Drug Abuse Patient Records regulations: The Federal rules restrict any use of the information to criminally investigate or prosecute any alcohol or drug abuse patient.[facility] FoundationIn the event this information is protected by the Federal Confidentiality of Alcohol and Drug Abuse Patient Records regulations: The Federal rules restrict any use of the information to criminally investigate or prosecute any alcohol or drug abuse patient.[facility] FoundationIn the event this information is protected by the Federal Confidentiality of Alcohol and Drug Abuse Patient Records regulations: The Federal rules restrict any use of the information to criminally investigate or prosecute any alcohol or drug abuse patient.[facility] FoundationIn the event this information is protected by the Federal Confidentiality of Alcohol and Drug Abuse Patient Records regulations: The Federal rules restrict any use of the information to criminally investigate or prosecute any alcohol or drug abuse patient.[facility] FoundationIn the event this information is protected by the Federal Confidentiality of Alcohol and Drug Abuse Patient Records regulations: The Federal rules restrict any use of the information to criminally investigate or prosecute any alcohol or drug abuse patient.[facility] FoundationIn the event this information is protected by the Federal Confidentiality of Alcohol and Drug Abuse Patient Records regulations: The Federal rules restrict any use of the information to criminally investigate or prosecute any alcohol or drug abuse patient.[facility] FoundationIn the event this information is protected by the Federal Confidentiality of Alcohol and Drug Abuse Patient Records regulations: The Federal rules restrict any use of the information to criminally investigate or prosecute any alcohol or drug abuse patient.[facility] FoundationIn the event this information is protected by the Federal Confidentiality of Alcohol and Drug Abuse Patient Records regulations: The Federal rules restrict any use of the information to criminally investigate or prosecute any alcohol or drug abuse patient.[facility] FoundationIn the event this information is protected by the Federal Confidentiality of Alcohol and Drug Abuse Patient Records regulations: The Federal rules restrict any use of the information to criminally investigate or prosecute any alcohol or drug abuse patient.[facility] FoundationIn the event this information is protected by the Federal Confidentiality of Alcohol and Drug Abuse Patient Records regulations: The Federal rules restrict any use of the information to criminally investigate or prosecute any alcohol or drug abuse patient.[facility] FoundationIn the event this information is protected by the Federal Confidentiality of Alcohol and Drug Abuse Patient Records regulations: The Federal rules restrict any use of the information to criminally investigate or prosecute any alcohol or drug abuse patient.[facility] Care Teams (unrecognized sec tion and content) [...] Other Provid er Active Jennie Ferrera , VP RHEUMATOLOGY-C Attending Provider Active Crane Rigger Relationship Specialty Start Date End Date Shaikh Storm MD [address] [place] [address] PCP - General Primary Care 12/06/21 Barbara Johnston MD [address] [place], [place] [id number] Referring Urology 12/06/21 Crane Rigger Relationship Specialty Start Date End Date Shaikh Storm MD [address] [place] [address] PCP - General Primary Care 12/06/21 Barbara Johnston MD [address] [place] [address] Referring Urology 12/06/21 Crane Rigger Relationship Specialty Start Date End Date Shaikh Storm MD [address] [place] [address] PCP - General Primary Care 12/06/21 Barbara Johnston MD [address] [place] [address] Referring Urology 12/06/21 Crane Rigger Relationship Specialty Start Date End Date Shaikh Storm MD [address] [place] [address] PCP - General Primary Care 12/06/21 Barbara Johnston MD [address] [place] [address] Referring Urology 12/06/21 Crane Rigger Relationship Specialty Start Date End Date Shaikh Storm MD [address] [place] [address] PCP - General Primary Care 12/06/21 Barbara Johnston MD [address] [place] [address] Referring Urology 12/06/21 Constance Durand LSW Case Management Director 03/04/22 Crane Rigger Relationship Specialty Start Date End Date Shaikh Storm MD [address] [place] [address] PCP - General Primary Care 12/06/21 Barbara Johnston MD [address] [place] [address] Referring Urology 12/06/21 Constance Durand LSW Case Management Director 03/04/22 Crane Rigger Relationship Specialty Start Date End Date Shaikh Storm MD [address] [place] [address] PCP - General Primary Care 12/06/21 Barbara Johnston MD [address] [place] [address] Referring Urology 12/06/21 Constance Durand LSW Case Management Director 03/04/22 Crane Rigger Relationship Specialty Start Date End Date Shaikh Storm MD [address] [place] [address] PCP - General Primary Care 12/06/21 Barbara Johnston MD [address] [place] [address] Referring Urology 12/06/21 Constance Durand LSW Case Management Director 03/04/22 Crane Rigger Relationship Specialty Start Date End Date Shaikh Storm MD [address] [place] [address] PCP - General Primary Care 12/06/21 Barbara Johnston MD [address] [place] [address] Referring Urology 12/06/21 Constance Durand LSW Case Management Director 03/04/22 Crane Rigger Relationship Specialty Start Date End Date Shaikh Storm MD [address] [place] [address] PCP - General Primary Care 12/06/21 Barbara Johnston MD [address] [place] [address] Referring Urology 12/06/21 Constance Durand LSW Case Management Director 03/04/22 Crane Rigger Relationship Specialty Start Date End Date Shaikh Storm MD [address] [place] [address] PCP - General Primary Care 12/06/21 Barbara Johnston MD [address] [place] [address] Referring Urology 12/06/21 Constance Durand LSW Case Management Director 03/04/22 Crane Rigger Relationship Specialty Start Date End Date Shaikh Storm MD [address] [place] [address] PCP - General Primary Care 12/06/21 Barbara Johnston MD [address] [place] [address] Referring Urology 12/06/21 Constance Durand LSW Case Management Director 03/04/22 Crane Rigger Relationship Specialty Start Date End Date Shaikh Storm MD [address] [place] [address] PCP - General Primary Care 12/06/21 Barbara Johnston MD [address] [place] [address] Referring Urology 12/06/21 Constance Durnad LSW Case Management Director 03/04/22 Crane Rigger Relationship Specialty Start Date End Date Shaikh Storm MD [address] [place] [address] PCP - General Primary Care 12/06/21 Barbara Johnston MD [address] [place] [address] Referring Urology 12/06/21 Constance Durand LSW Case Management Director 03/04/22 Crane Rigger Relationship Specialty Start Date End Date Shaikh Storm MD [address] [place] [address] PCP - General Primary Care 12/06/21 Barbara Johnston MD [address] [place] [address] Referring Urology 12/06/21 Constance Durand LSW Case Management Director 03/04/22 Team Status: Inactive Member Role Status Dates Shaikh Dotty MD Primary Care Provider Active Zeinab Justice MD Attending Provider Active Crane Rigger Relationship Specialty Start Date End Date Shaikh Storm MD [address] [place] [address] PCP - General Primary Care 12/06/21 Barbara Johnston MD [address] [place], [place] [address] Referring Urology 12/06/21 Constance Durand LSW Case Management Director 03/04/22 Team Status: Inactive Member Role Status Dates Shaikh Dotty MD Primary Care Provider Active Lyla Nazario MD Attending Provider Active Crane Rigger Relationship Specialty Start Date End Date Shaikh Storm MD [address] [place] [address] PCP - General Primary Care 12/06/21 Barbara Johnston MD [address] [place] [address] Referring Urology 12/06/21 Constance Durand LSW Case Management Director 03/04/22 Crane Rigger Relationship Specialty Start Date End Date Shaikh Storm MD [address] [place] [address] PCP - General Primary Care 12/06/21 Barbara Johnston MD [address] [place] [address] Referring Urology 12/06/21 Constance Durand LSW Case Management Director 03/04/22 Crane Rigger Relationship Specialty Start Date End Date Shaikh Storm MD [address] [place] [address] PCP - General Primary Care 12/06/21 Barbara Johnston MD [address] [place] [address] Referring Urology 12/06/21 Constance Durand LSW Case Management Director 03/04/22 Crane Rigger Relationship Specialty Start Date End Date Shaikh Storm MD [address] [place] [address] PCP - General Primary Care 12/06/21 Barbara Johnston MD [address] [place] [address] Referring Urology 12/06/21 Constance Durand LSW Case Management Director 03/04/22 Crane Rigger Relationship Specialty Start Date End Date Shaikh Storm MD [address] [place] [address] PCP - General Primary Care 12/06/21 Barbara Johnston MD [address] [place] [address] Referring Urology 12/06/21 Constance Durand LSW Case Management Director 03/04/22 Crane Rigger Relationship Specialty Start Date End Date Shaikh Storm MD [address] [place] [address] PCP - General Primary Care 12/06/21 Barbara Johnston MD [address] [place] [address] Referring Urology 12/06/21 Constance Durand MIME ARTIST Case Management Director 03/04/22 Crane Rigger Relationship Specialty Start Date End Date Shaikh Storm MD [address] [place] [address] PCP - General Primary Care 12/06/21 Barbara Johnston MD [address] [place] [address] Referring Urology 12/06/21 Constance Durand, MIME ARTIST Case Management Director 03/04/22 Crane Rigger Relationship Specialty Start Date End Date Shaikh Storm MD [address] [place] [address] PCP - General Primary Care 12/06/21 Barbara Johnston MD [address] [place] [address] Referring Urology 12/06/21 Constance Durand, MIME ARTIST Case Management Director 03/04/22 Crane Rigger Relationship Specialty Start Date End Date Shaikh Storm MD [address] [place] [address] PCP - General Primary Care 12/06/21 Barbara Johnston MD [address] [place] [address] Referring Urology 12/06/21 Constance Durand, MIME ARTIST Case Management Director 03/04/22 Team Status: Inactive Member Role Status Dates Shaikh Dotty MD Primary Care Provider Active Temporary Anesthesiologist Attending Provider Active Crane Rigger Relationship Specialty Start Date End Date Shaikh Storm MD [address] [place] [address] PCP - General Primary Care 12/06/21 Barbara Johnston MD [address] [place] [address] Referring Urology 12/06/21 Constance Durand LSW Case Management Director 03/04/22 Team Status: Inactive Member Role Status Dates Shaikh Dotty MD Primary Care Provider Active Jose Martin Mchugh MD Attending Provider Active Team Status: Inactive Member Role Status Dates Shaikh Dotty MD Primary Care Provider Active Theo Thakkar MD Attending Provider Active Crane Rigger Relationship Specialty Start Date End Date Shaikh Storm MD [address] [place] [address] PCP - General Primary Care 12/06/21 Barbara Johnston MD [address] [place] [address] Referring Urology 12/06/21 Constance Durand LSW Case Management Director 03/04/22 Crane Rigger Relationship Specialty Start Date End Date Shaikh Storm MD [address] [place] [address] PCP - General Primary Care 12/06/21 Barbara Johnston MD [address] [place] [address] Referring Urology 12/06/21 Constance Durand LSW Case Management Director 03/04/22 Team Status: Inactive Member Role Status Dates Shaikh Dotty MD Primary Care Provider, Attending Pr ovider Active Crane Rigger Relationship Specialty Start Date End Date Shaikh Storm MD [address] [place] [address] PCP - General Internal Medicine 06/04/23 Crane Rigger Relationship Specialty Start Date End Date Shaikh Storm MD [address] [place] [address] PCP - General Primary Care 12/06/21 Barbara Johnston MD [address] [place] [address] Referring Urology 12/06/21 Constance Durand LSW Case Management Director 03/04/22 Crane Rigger Relationship Specialty Start Date End Date Shaikh Storm MD [address] [place] [address] PCP - General Internal Medicine 06/04/23 Crane Rigger Relationship Specialty Start Date End Date Shaikh Storm MD [address] [place] [address] PCP - General Internal Medicine 06/04/23 Crane Rigger Relationship Specialty Start Date End Date Shaikh Storm MD PCP - General Internal Medicine 06/04/23 Team Status: Inactive Member Role Status Dates Shaikh Dotty MD Primary Care Provider Active Start: October 15, 2023 End: October 15, 2023 Bonnie Tan NP-C Attending Provider Active Start: October 15, 2023 End: October 15, 2023 Crane Rigger Relationship Specialty Start Date End Date Shaikh Storm MD [address] [place] [address] PCP - General Primary Care 12/06/21 Barbara Johnston MD [address] [place] [address] Referring Urology 12/06/21 Constance Durand LSW Case Management Director 03/04/22 Crane Rigger Relationship Specialty Start Date End Date Shaikh Storm MD [address] [place] [address] PCP - General Primary Care 12/06/21 Barbara Johnston MD [address] [place] [address] Referring Urology 12/06/21 Constance Durand LSW Case Management Director 03/04/22 Team Status: Active Member Role Status Dates PHYSICIAN NO FAMILY Primary Care Provider Active Team Status: Inactive Member Role Status Dates PHYSICIAN NO FAMILY Primary Care Provider Active Start: February 25, 2024 End: February 25, 2024 Theo Thakkar MD Attending Provider Active Start : February 25, 2024 End: February 25, 2024 Team Status: Inactive Member Role Status Dates Theo Thakkar MD Attending Provider Active Start : February 29, 2024 End: February 29, 2024 PHYSICIAN NO FAMILY Primary Care Provider Active Start: February 29, 2024 End: February 29, 2024 Crane Rigger Relationship Specialty Start Date End Date Brian Avalos MD [address] [place] [address] PCP - General Family Medicine 01/12/24 Nasir Ward NP [address] [place] [address] Nurse Practitioner Family Medicine 01/12/24 Crane Rigger Relationship Specialty Start Date End Date Brian Avalos MD [address] [place], [place] [phone] PCP - General Family Medicine 01/12/24 Nasir Ward NP [address] [place], [place] [address] Nurse Practitioner Family Medicine 01/12/24 Crane Rigger Relationship Specialty Start Date End Date Brian Avalos MD [address] [place] [address] PCP - General Family Medicine 01/12/24 Nasir Ward NP [address] [place], [place] [address] Nurse Practitioner Family Medicine 01/12/24 Crane Rigger Relationship Specialty Start Date End Date Brian Avalos MD [address] [place] [address] PCP - General Family Medicine 01/12/24 Nasir Ward NP [address] [place], [place] [address] Nurse Practitioner Family Medicine 01/12/24 Crane Rigger Relationship Specialty Start Date End Date Brian Avalos MD [address] [place] [address] PCP - General Family Medicine 01/12/24 Nasir Ward NP [address] [place], [place] [address] Nurse Practitioner Family Medicine 01/12/24 Crane Rigger Relationship Specialty Start Date End Date Brian Avalos MD [address] [place] [address] PCP - General Family Medicine 01/12/24 Nasir Ward NP [address] [place] [address] Nurse Practitioner Family Medicine 01/12/24 Crane Rigger Relationship Specialty Start Date End Date Brian Avalos MD [address] [place] [address] PCP - General Family Medicine 01/12/24 Nasir Ward NP [address] [place] [address] Nurse Practitioner Family Medicine 01/12/24 Team Status: Active Member Role Status Dates Brian Avalos MD Primary Care Provider Active Team Status: Inactive Member Role Status Dates Brian Avalos MD Primary Care Provider Active S tart: July 14, 2024 End: July 14, 2024 Farooq Quezada PA-C Emergency Provider Active Start: July 14, 2024 End: July 14, 2024 Team Status: Inactive Member Role Status Dates Brian Avalos MD Primary Care Provider Active S tart: August 10, 2024 End: August 10, 2024 Theo Thakkar MD Attending Provider Active Start : August 10, 2024 End: August 10, 2024 Team Status: Inactive Member Role Status Dates Theo Thakkar MD Attending Provider Active Start : August 15, 2024 End: August 15, 2024 Brian Avalos MD Primary Care Provider Active S tart: August 15, 2024 End: August 15, 2024 Crane Rigger Relationship Specialty Start Date End Date Shaikh Storm MD PCP - General Internal Medicine 06/04/23 Crane Rigger Relationship Specialty Start Date End Date Brian Avalos MD [address] [place] [address] PCP - General Family Medicine 01/12/24 Nsair Ward NP [address] [place] [address] Nurse Practitioner Family Medicine 01/12/24 Crane Rigger Relationship Specialty Start Date End Date Brian Avalos MD [address] [place] [address] PCP - General Family Medicine 01/12/24 Nasir Ward NP [address] [place] [address] Nurse Practitioner Family Medicine 01/12/24 Crane Rigger Relationship Specialty Start Date End Date Shaikh Storm MD [address] [place] [address] PCP - General Primary Care 12/06/21 Barbara Johnston MD [address] [place] [address] Referring Urology 12/06/21 Constance Durand LSW Case Management Director 03/04/22 Goals (unrecognized section and content) Goals [...] BE BASED ON THE PRIMARY CLINICAL RECORDS. [facility]. provides no warranty or guarantee of the accuracy or completeness of information in this document.
--- NOTE | 2025-02-08 13:28 | PM.CN ---
Consult Note: HPI Data of Consult Patient: known to practice within the last 3 years Requesting Physician: Jennie Ferrera NP Primary Care Provider: Shaikh Dotty MD Consult Narrative Reason for consult: back pain Narrative: Vasyl Broussard a pleasant 79 year old male with chronic low back pain post L4/5 discectomy/laminectomy continues to endorse moderate to severe low back pain. Pt has failed to benefit from > 6 weeks of HEP, heat, ice, tylenol, and cannot take NSAIDs on plavix. Pain today 2/10 increasing to 10/10 with standing, walking, bending, weather changes, and activity. notes improvement with sleep, lying, and sitting. utilizing norco 5-325mg bid prn pain with benefit without side effects. did trial a flexeril from his the other night due to inability to sleep due to pain. cc:: CC: Jennie Ferrera NP Review of Systems ROS Musculoskeletal Reports: back pain, extremity pain and joint pain PFSH PFSH Medical History (Updated 01/04/25 @ 14:22 by Jennie Ferrera NP) History of stress test ?Z92.89 - Personal history of other medical treatment (ICD-10) Osteoarthritis ?M19.90 - Unspecified osteoarthritis, unspecified site (ICD-10) Hearing deficit ?H91.90 - Unspecified hearing loss, unspecified ear (ICD-10) Stroke ?I63.9 - Cerebral infarction, unspecified (ICD-10) Prostate cancer ?C61 - Malignant neoplasm of prostate (ICD-10) Enlarged prostate ?N40.0 - Benign prostatic hyperplasia without lower urinary tract symptoms (ICD-10) Kidney disease ?N28.9 - Disorder of kidney and ureter, unspecified (ICD-10) Surgical History H/O endarterectomy ?Z98.890 - Other specified postprocedural states (ICD-10) History of bowel resection ?Z90.49 - Acquired absence of other specified parts of digestive tract (ICD-10) History of exploratory laparotomy ?Z98.890 - Other specified postprocedural states (ICD-10) History of lumbar discectomy ?Z98.890 - Other specified postprocedural states (ICD-10) History of heart artery stent ?Z95.5 - Presence of coronary angioplasty implant and graft (ICD-10) Meds Home Medications and Allergies Home Medications ?Medication ?Instructions ?Recorded ?Confirmed ?Type amlodipine 10 mg tablet 10 mg PO DAILY 02/05/23 09/21/24 History aspirin 81 mg capsule 81 mg PO DAILY 02/05/23 09/21/24 History VITAMIN D 50,000U 07/30/23 History clopidogrel 75 mg tablet (Plavix) 75 mg PO DAILY 07/30/23 09/21/24 History pravastatin 40 mg tablet 40 mg PO DAILY 07/30/23 09/21/24 History hydrocodone 5 mg-acetaminophen 325 1 tab PO BID PRN pain #60 tabs 05/26/24 09/21/24 Rx mg tablet naloxone 4 mg/actuation nasal 4 mg intranasal Q2M PRN opioid 05/26/24 Rx spray (Narcan) overdose #2 ea hydrocodone 5 mg-acetaminophen 325 1 tab PO BID PRN pain #18 tabs 09/21/24 Rx mg tablet valsartan 80 mg tablet 80 mg PO DAILY 09/21/24 09/21/24 History hydrocodone 5 mg-acetaminophen 325 1 tab PO TID PRN pain #90 tabs 09/27/24 Rx mg tablet hydrocodone 5 mg-acetaminophen 325 1 tab PO BID PRN pain #60 tabs 01/04/25 Rx mg tablet hydrocodone 5 mg-acetaminophen 325 1 tab PO BID PRN pain #60 tabs 02/02/25 Rx mg tablet Allergies Allergy/AdvReac Type Severity Reaction Status Date / Time No Known Drug Allergies Allergy Verified 08/10/23 11:17 Exam Constitutional Documenting provider has reviewed patient's vital signs: yes Common normals: no apparent distress, oriented x3, healthy appearing, alert and well nourished General appearance: cooperative [facility] Common normals: normocephalic, hearing grossly normal bilaterally and moist oral mucous membranes Head and scalp: normocephalic Eye Common normals: PERRL Pupil: PERRL Neck & C-Spine Common normals: full ROM General: normal visual inspection Chest Common normals: inspection of chest normal Respiratory Common normals: normal respiratory effort, no retractions and no use of accessory muscles Back & Pelvis Lumbar spine/lower back: ROM limited, pain with ROM, straight leg raise positive right and straight leg raise positive left Other: strength 4/5 in BLE sensation intact BLE notes significant pain with standing and walking, as well as forward flexion. pain does improve significantly with sitting and lying Neuro Common normals: oriented x3 Sensorium/orientation: alert Psych Common normals: mental status grossly normal, thought process normal, cooperative, affect normal, speech normal and activity/motor behavior normal Speech: normal speech Thought process: normal thought process Results Additional Findings Additional findings: If on a controlled substance or opioids, I have checked an [place] report on this patient and there are no aberrancies noted in the prescribing history.??If on a controlled substance or opioid a drug screen was completed and reviewed within the last year, and if there has not been a drug screen completed we ordered one today to monitor higher risk, state monitored pain medication use. As part of providing excellent, safe, comprehensive care, the following was completed at our patient's visit: 1. A medication reconciliation and review to ensure accurate knowledge of current/active medications, including asking our patients to inform us about any [id number] medications or herbal remedies/nutritional supplements/alternative remedies. 2. A review to specifically ensure our patients have had annual screening for screening for depression, screening for tobacco use, and screening for unhealthy alcohol use. For concerning screenings had a discussion with the patient, provided patient education, and recommended follow-up with primary care provider when appropriate. If patient noted with a risk of falling, they received education on strength, gait, and balance training to prevent future risk of falling. Portions of this note may have been carried over from the previous visit and updated as appropriate. Please note this office utilizes paper charting in addition to the electronic medical record. A list of current medications, vitals, and PMH is available there as the clinical staff outside of myself do not have access to [employer] charting during the clinic day operations. As part of providing quality comprehensive care the current medications, vitals, and PMH were reviewed in the paper chart. 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 Patient has completed >6 weeks of guided home exercise program and/or formal physical therapy program without relief of their symptoms.? The Oswestry Disability Index was completed, and the patient scored a 46%.? update lumbar CT without contrast in consideration of NS consultation prior to scs trial for failed back syndrome, lumbar spondylosis, and lumbar stenosis with NC unresponsive to lumbar TFESIs and RFAs as well as conservative measures. pt will need 10mg po valium for CT due to severe PTSD and claustrophobia, defer lumbar MRI due to this risks vs benefits reviewed, start flexeril 10mg hs prn pain/spasms continue hydrocodone-acetaminophen 5-325mg bid prn moderate to severe pain update UDS today refer to NS for evaluation once lumbar CT complete f/u 3 months for medication management or once evaluated by NS
== END 2025-02-08 12:56 | disposition home or self-care (01) ==
LOC: PM 12:55
PROVIDERS: PCP Internal Medicine; Visit Provider Nurse Practitioner
DX: M96.1 Postlaminectomy syndrome, not elsewhere classified (principal); M48.062 Spinal stenosis, lumbar region with neurogenic claudication; M47.816 Spondylosis without myelopathy or radiculopathy, lumbar region; M62.838 Other muscle spasm; Z79.891 Long term (current) use of opiate analgesic
CPT/HCPCS: G0463

== ENCOUNTER 2025-02-13 10:41 | Outpatient (OUT) | payer MEDICARE, SELFPAY ==
--- OUTSIDE RECORDS SUMMARY | 2025-02-13 10:45 | XMS_ITS | Encounter Summary ---
Author Organization [facility] Address [address] [place] [address] Care Team Providers Care Transit Planner Name Role Phone Brian Avalos MD Primary Care Provider [phone] Kayley Ward POT LINER Unavailable Encounter Details Date Type Department Care Team (Late st Contact Info) Description 08/09/2024 Orders Only [facility] [address] [facility] [place] [address] Claire James MD [address] [place] [address] Social History Tobacco Use Types Packs/Day Years [...] declined 01/20/2024 How often do you attend jehovah's witness or taoism serv ices? Patient declined 01/20/2024 Do you belong to any clubs o r organizations such as jehovah's witness groups, unions, fraternal or athletic groups, or [...] any time in the past 12 m [facility], were you homeless or living in a assisted (including now)? No 01/20/2024 Sex and Gender [...] documented as of this encounter Care Teams Transit Planner Relationship Specialty Start Date End Date Brian Avalos MD PCP - General Family Medicine 01/12/24 Kayley Ward NP Nurse Practitioner Family Medicine 01/12/24 documented as of this encounter
--- OUTSIDE RECORDS SUMMARY | 2025-02-13 10:45 | XMS_ITS | Encounter Summary ---
Author Organization [facility] Address [address] [place] [address] Care Team Providers Care Instructional Writer Name Role Phone Brian Avalos MD Primary Care Provider [phone] Kayley Ward SHUTTLE VAN DRIVER Unavailable [phone] Encounter Details Date Type Department Care Team (Late st Contact Info) Description 08/15/2024 Orders Only [facility] [address] [place] [address] Claire James MD [address] [place] [address] Social History Tobacco Use Types Packs/Day Years [...] declined 01/20/2024 How often do you attend moravian or baptism serv ices? Patient declined 01/20/2024 Do you belong to any clubs o r organizations such as moravian groups, unions, fraternal or athletic groups, or [...] any time in the past 12 m [facility], were you homeless or living in a skilled nursing (including now)? No 01/20/2024 Sex and Gender [...] documented as of this encounter Care Teams Instructional Writer Relationship Specialty Start Date End Date Brian Avalos MD PCP - General Family Medicine 01/12/24 Kayley Ward NP Nurse Practitioner Family Medicine 01/12/24 documented as of this encounter
--- OUTSIDE RECORDS SUMMARY | 2025-02-13 10:45 | XMS_ITS | Encounter Summary ---
Author Organization [facility] Address [address] [place] [address] Care Team Providers Care Diamond Sizer And Grader Name Role Phone Brian Avalos MD Primary Care Provider [phone] Kayley Ward ICT SUPPORT ENGINEER Unavailable [phone] Encounter Details Date Type Department Care Team (Late st Contact Info) Description 09/05/2024 Orders Only [facility] [address] [facility] [place] [address] Claire James MD [address] [place] [address] Social History Tobacco Use Types Packs/Day Years [...] often do you attend jehovah's witness or yazidi serv ices? Patient declined 01/20/2024 Do you [...] time in the past 12 m [facility], were you homeless or living in a fdc (including now)? No 01/20/2024 Sex and Gender [...] documented as of this encounter Care Teams Diamond Sizer And Grader Relationship Specialty Start Date End Date Brian Avalos MD PCP - General Family Medicine 01/12/24 Kayley Ward NP Nurse Practitioner Family Medicine 01/12/24 documented as of this encounter
--- OUTSIDE RECORDS SUMMARY | 2025-02-13 10:45 | XMS_ITS ---
Author Organization [facility] Address [address] [place], [place] [address] Care Team Providers Care Director Marketing Name Role Phone Shaikh AUBREE Storm Primary Care Provider [phone] Ronaldo Alaniz MD Unavailable [phone] Constance Durand Unavailable Unavailable Active Problems Problem [...] you may be interested in: [email or web address] Clam Dredge Boat Captain Team Leader Surgery Art Therapy Support Groups- Contact Clam Dredge Boat Captain for dates and times. Prepared by: Elizabeth Freire APRN.OFFENSIVE COORDINATOR Delivered on: November 18, 2022 - This [...]
--- OUTSIDE RECORDS SUMMARY | 2025-02-13 10:45 | XMS_ITS | Encounter Summary ---
Author Organization [facility] Address [address] [place] [address] [place] [address] Care Team Providers Care Jewel Hole Finish Opener Name Role Phone Brian Avalos MD Primary Care Provider [phone] Kayley Ward [address] SQL DEVELOPER Unavailable [phone] Reason for Visit * Reason Comments Med Refill Encounter Details Date Type Department Care Team (Late st Contact Info) Description 12/09/2024 Refill [facility] [address] [place] [address] Qian Son NP [address] [place] [address] Primary hypertension Social History Tobacco Use Types [...] declined 01/20/2024 How often do you attend quaker or sabianist serv ices? Patient declined 01/20/2024 Do you belong to any clubs o r organizations such as quaker groups, unions, fraternal or athletic groups, or [...] were you homeless or living in a usp (including now)? No 01/20/2024 Sex and Gender [...] documented as of this encounter Care Teams Jewel Hole Finish Opener Relationship Specialty Start Date End Date Brian Avalos MD PCP - General Family Medicine 01/12/24 Kayley Ward NP Nurse Practitioner Family Medicine 01/12/24 documented as of this encounter
--- OUTSIDE RECORDS SUMMARY | 2025-02-13 10:45 | XMS_ITS | Encounter Summary ---
Author Organization [facility] Address [address] [facility] [place] [address] Care Team Providers Care Roller Skate Assembler Name Role Phone Shaikh AUBREE Storm Primary Care Provider [phone] Shaikh AUBREE Storm Primary Care Provider Brian Avalos MD Primary Care Provider [phone] Kayley Ward NP Unavailable [phone] Encounter Details Date Type Department Care Team (Late st Contact Info) Description 08/03/2023 Orders Only [facility] [address] [place] [address] Shaikh Storm MD [address] [place] [address] Social History Tobacco Use Types Packs/Day Years [...] Unknown Shaikh Dotty MAK LAB MICROBIOLOGY - [facility] Final Result documented in this encounter Visit Diagnoses Not on filedocumented in this encounter Care Teams Roller Skate Assembler Relationship Specialty Start Date End Date Shaikh Storm MD PCP - General Internal Medicine 06/01/22 09/27/23 Shaikh Storm MD [address] [place] [address] PCP - General Internal Medicine 09/28/23 01/11/24 Brian Avalos MD [address] [place] [address] PCP - General Family Medicine 01/12/24 Kayley Ward NP [address] [place] [address] Nurse Practitioner Family Medicine 01/12/24 documented as of this encounter
--- OUTSIDE RECORDS SUMMARY | 2025-02-13 10:45 | XMS_ITS | Clinical Summary ---
Author Organization [facility] Address [address] [place] [address] Care Team Providers Care Vertical Lathe Operator Name Role Phone Brian Avalos MD Primary Care Provider [phone] Kayley Ward BUSINESS CONTROLLER Unavailable [phone] Allergies Active Allergy Reactions Criticality Noted Date Comments Ezetimibe GI intolerance 04/27/2023 Statins Other Medium 03/30/2023 Muscle/Joint Pain Other Reaction(s): Other Muscle/Joint Pain Other Reaction(s): lipitor Medications pravastatin (Pravachol) 40 MG tablet Take 40 mg by mouth at bedtime. Active ergocalciferol (Vitamin D-2) 1.25 MG (58229 UT) capsule Take 1.25 mg by mouth [...] for Lumbar Stenosis. Recently reduced dosage of [place]. Feels symptoms are well controlled. Continue current [...] joint 09/02/2023 Coronary artery disease invo lving [place] coronary artery of [place] heart without angina pectoris 06/29/2023 Assessment & [...] hips on prolonged ambulation. Patient is on [place] for chronic pain. He was evaluated by NS at [facility] and it seemed like they were concerned about possible opioid induced hyperalgesia. Patient has been trying to wean himself off of [place] but if he does not use it [...] foraminal stenosis Will refer to NS at [facility]. CVA (cerebral vascular accident) 06/04/2023 Assessment & Plan (06/29/2023 6:57 PM EST): Prior hx of ischemic CVA. No residual deficit. On ASA, statin. Carotid artery disease 06/04/2023 PAD (peripheral artery disease) 06/04/2023 Assessment & Plan (09/28/2023 9:43 AM EDT): On ASA, Plavix and statin. Left leg revascularization 2022 at [facility]. Leg pain has improved and is doing well Heart disease 06/04/2023 BPH (benign prostatic hyperplasia) 06/04/2023 History of NV (myocardial infarction) 06/04/2023 HLD (hyperlipidemia) 04/27/2023 Assessment [...] Data 12/09/2024 Refill [facility] [address] [place] [address] Qian Son NP Primary hypertension from Last [...] declined 01/20/2024 How often do you attend mandaeism or sabianist serv ices? Patient declined 01/20/2024 Do you belong to any clubs o r organizations such as mandaeism groups, unions, fraternal or athletic groups, or [...] were you homeless or living in a long term (including now)? No 01/20/2024 Sex and Gender [...] EDT Specimen Type: BLOOD SPECIMEN Ordering Facility: [facility] Address: [address] [place] [address] Original Ordering Provider: Hyun NAZARIO us Generic External Data Provider DOLORES F inal Result DOLORES [facility] [address] [facility] [address] [place] [phone] from Last 3 Months Insurance [address] [id number] [employer] Care Teams Vertical Lathe Operator Relationship Specialty Start Date End Date Brian Avalos MD PCP - General Family Medicine 01/12/24 Kayley Ward NP Nurse Practitioner Family Medicine 01/12/24
--- OUTSIDE RECORDS SUMMARY | 2025-02-13 10:45 | XMS_ITS | Encounter Summary ---
Author Organization [facility] Address [address] [place] [address] Care Team Providers Care Wealth Management Manager Name Role Phone Brian Avalos MD Primary Care Provider [phone] Kayley Ward HAND POTTER Unavailable [phone] Encounter Details Date Type Department Care Team (Late st Contact Info) Description 08/25/2024 Orders Only [facility] [address] [facility] [place] [address] Cherie William NP [address] [place] [address] Social History Tobacco Use Types [...] declined 01/20/2024 How often do you attend sabianist or faith serv ices? Patient declined 01/20/2024 Do you belong to any clubs o r organizations such as sabianist groups, unions, fraternal or athletic groups, or [...] any time in the past 12 m [facility], were you homeless or living in a prison (including now)? No 01/20/2024 Sex and Gender [...] documented as of this encounter Care Teams Wealth Management Manager Relationship Specialty Start Date End Date Brian Avalos MD PCP - General Family Medicine 01/12/24 Kayley Ward NP Nurse Practitioner Family Medicine 01/12/24 documented as of this encounter
--- OUTSIDE RECORDS SUMMARY | 2025-02-13 10:45 | XMS_ITS | Encounter Summary ---
Author Organization [facility] Address [address] [place] [address] Care Team Providers Care Locomotive Crane Engineer Name Role Phone Brian Avalos MD Primary Care Provider [phone] Kayley Ward NP Unavailable [phone] Encounter Details Date Type Department Care Team (Late st Contact Info) Description 04/11/2024 Orders Only [facility] [address] [facility] [place] [address] Kayley Ward NP Social History Tobacco Use [...] declined 01/20/2024 How often do you attend zoroastrian or church serv ices? Patient declined 01/20/2024 Do you belong to any clubs o r organizations such as zoroastrian groups, unions, fraternal or athletic groups, or [...] any time in the past 12 m [facility], were you homeless or living in [...] LABS (04/11/2024 3:25 PM EST) Kayley Ward CHECK OUT CLERK LAB CHG PERFORMABLES Fin al Result * SCANNED LABS (04/11/2024 9:23 AM EST) Kayley Ward CHECK OUT CLERK LAB CHG PERFORMABLES Fin al Result documented in this encounter Visit Diagnoses Not on filedocumented in this encounter Additional Health Concerns Assessment Noted Time PHQ-9 Depression Total Score: 5 12/08/19 24 11:00 AM EDT documented as of this encounter Care Teams Locomotive Crane Engineer Relationship Specialty Start Date End Date Brian Avalos MD PCP - General Family Medicine 01/12/24 Kayley Ward NP Nurse Practitioner Family Medicine 01/12/24 documented as of this encounter
--- OUTSIDE RECORDS SUMMARY | 2025-02-13 10:45 | XMS_ITS | Encounter Summary ---
Author Organization [facility] Address [address] [place] [address] Care Team Providers Care Music Artist Name Role Phone Brian Avalos MD Primary Care Provider [phone] Kayley Ward CERTIFIED HISTOLOGIC TECHNICIAN Unavailable [phone] Encounter Details Date Type Department Care Team (Late st Contact Info) Description 08/24/2024 Orders Only [facility] [address] [facility] [address] [place] [address] Cherie William NP [address] [place] [address] Social History Tobacco Use Types [...] declined 01/20/2024 How often do you attend advent or sikhism serv ices? Patient declined 01/20/2024 Do you belong to any clubs o r organizations such as advent groups, unions, fraternal or athletic groups, or [...] any time in the past 12 m [facility], were you homeless or [...] documented as of this encounter Care Teams Music Artist Relationship Specialty Start Date End Date Brian Avalos MD PCP - General Family Medicine 01/12/24 Kayley Ward NP Nurse Practitioner Family Medicine 01/12/24 documented as of this encounter
--- OUTSIDE RECORDS SUMMARY | 2025-02-13 10:45 | XMS_ITS | Encounter Summary ---
Author Organization [facility] Address [address] [place] [address] Care Team Providers Care Sand Mixer Machine Name Role Phone Shaikh AUBREE Malik Primary Care Provider Shaikh AUBREE Malik Primary Care Provider Brian Avalos MD Primary Care Provider [phone] Kayley Ward NP Unavailable [phone] Encounter Details Date Type Department Care Team [...] PERFUSION STRESS TEST WITH LEXISCAN Performing facility: [facility], [address] [place] [address], [address], [place] [address] [facility] Provider: Sylvester Grayson DO, [facility] PCP: Dr. Agus MALIK Supervising provider: Inge Dickerson MD INDICATION: HTN, Bilateral Carotid, Chest Pain HISTORY: Gender: M; Age: 77 y/o ; Height: HT 177.8 cm cm; Weight: WT 89.812 kg kg. CAD; High Cholesterol; Abnormal EKG; RBBB Previous [place]; Family HX CAD; Chest Pain; COPD; PAD, CVA, Carotid Disease, CKD Currently smoking. Cardiac catheterization. PTCA 1990s RCA. COMPARISON: No comparison. ACCESSION NUMBER(S): [id number] ORDERING CLINICIAN: VANDANA GRAYSON TECHNIQUE: ONE DAY [...] Inge Dickerson 06/19/2023 11:20 AM Dictation workstation: [id number] Procedure Note Radiology, Radiologist, - 06/19/2023 Interpreted By: Inge Dickerson and Beal Gina STUDY: MYOCARDIAL PERFUSION STRESS TEST WITH LEXISCAN Performing facility: [facility], [address] [place] [address], [address], [address] Provider: Sylvester Grayson DO, [facility] PCP: Dr. Agus MALIK Supervising provider: Inge Dickerson MD INDICATION: HTN, Bilateral Carotid, Chest Pain HISTORY: Gender: M; Age: 77 y/o ; Height: HT 177.8 cm cm; Weight: WT 89.812 kg kg. CAD; High Cholesterol; Abnormal EKG; RBBB Previous [place]; Family HX CAD; Chest Pain; COPD; PAD, CVA, Carotid Disease, CKD Currently smoking. Cardiac catheterization. PTCA 1990s RCA. COMPARISON: No comparison. ACCESSION NUMBER(S): [id number] ORDERING CLINICIAN: VANDANA GRAYSON TECHNIQUE: ONE DAY [...] Inge Dickerson 06/19/2023 11:20 AM Dictation workstation: [id number] us Generic External Data Provider IMG XR PROCEDURES Final Result documented in this encounter Visit Diagnoses Not on filedocumented in this encounter Care Teams Sand Mixer Machine Relationship Specialty Start Date End Date Shaikh Malik MD PCP - General Internal Medicine 06/01/22 09/27/23 Shaikh Malik MD [address] [place] [address] PCP - General Internal Medicine 09/28/23 01/11/24 Brian Avalos MD [address] [place] [address] PCP - General Family Medicine 01/12/24 Kayley Ward NP [address] [place] [address] Nurse Practitioner Family Medicine 01/12/24 documented as of this encounter
--- OUTSIDE RECORDS SUMMARY | 2025-02-13 10:45 | XMS_ITS | Encounter Summary ---
Author Organization [facility] Address [address] [place] [address] Care Team Providers Care Rn Baby Name Role Phone Brian Avalos MD Primary Care Provider [phone] Kayley Ward ENVIRONMENTAL MAINTENANCE WORKER Unavailable [phone] Encounter Details Date Type Department Care Team (Late st Contact Info) Description 08/10/2024 Orders Only [facility] [address] [facility] [address] Claire James MD [address] [place] [address] Social History Tobacco Use Types Packs/Day Years [...] declined 01/20/2024 How often do you attend yazidi or amish serv ices? Patient declined 01/20/2024 Do you belong to any clubs o r organizations such as yazidi groups, unions, fraternal or athletic groups, or [...] time in the past 12 m [facility], were you homeless or living in [...] documented as of this encounter Care Teams Rn Baby Relationship Specialty Start Date End Date Brian Avalos MD PCP - General Family Medicine 01/12/24 Kayley Ward NP Nurse Practitioner Family Medicine 01/12/24 documented as of this encounter
--- OUTSIDE RECORDS SUMMARY | 2025-02-13 10:45 | XMS_ITS | Encounter Summary ---
Author Organization [facility] Address [address] [place] [address] Care Team Providers Care Aeronautical Engineering Technologist Name Role Phone Shaikh AUBREE Storm Primary Care Provider [phone] Brian Avalos MD Primary Care Provider [phone] Kayley Ward NP Unavailable [phone] Encounter Details Date Type Department Care Team (Late st Contact Info) Description 12/09/2023 Orders Only [facility] [address] [place] [address] Cornel Ravi MD [address] [place] [address] Social History Tobacco Use Types [...] documented as of this encounter Care Teams Aeronautical Engineering Technologist Relationship Specialty Start Date End Date Shaikh Storm MD [address] [place] [address] PCP - General Internal Medicine 09/28/23 01/11/24 Brian Avalos MD [address] [place] [address] PCP - General Family Medicine 01/12/24 Kayley Ward NP [address] [place] [address] Nurse Practitioner Family Medicine 01/12/24 documented as of this encounter
--- OUTSIDE RECORDS SUMMARY | 2025-02-13 10:45 | XMS_ITS | Clinical Summary ---
Author Organization [facility] Address [id number] [address] [place] [address] Care Team Providers Care Peat Shredder Tender Name Role Phone Unavailable Primary Care Provider [...] 01/30/2025 Medical Devices Not on file Insurance [facility]
--- OUTSIDE RECORDS SUMMARY | 2025-02-13 10:46 | XMS_ITS | Encounter Summary ---
Author Organization [facility] Address [address] [place] [address] Phone Care Team Providers Care Laborer Laboratory Name Role Phone Shaikh AUBREE Storm Primary Care Provider [phone] Encounter Details Date Type Department Care Team (Late st Contact Info) Description 05/27/2023 Scanned Document [facility] [address] [place] [id number] Scanning, Generic Provider Social History Tobacco Use [...] Description 08/30/2025 10:00 AM EDT Office Visit [facility] [address] [place] [address] Chaim Grayson DO [address] [place], [place] [id number] documented as of this encounter Visit Diagnoses Not on filedocumented in this encounter Care Teams Laborer Laboratory Relationship Specialty Start Date End Date Shaikh Storm MD PCP - General Internal Medicine 06/04/23 documented as of this encounter
--- OUTSIDE RECORDS SUMMARY | 2025-02-13 10:46 | XMS_ITS | Encounter Summary ---
Author Organization [facility] Address [address] [place] [address] Care Team Providers Care Commercial Development Manager Name Role Phone Shaikh AUBREE Storm Primary Care Provider [phone] Ronaldo Alaniz MD Unavailable [phone] Constance Durand Unavailable Unavailable Source Comments In the event this information is protected by the Federal Confidentiality of Alcohol and Drug AbusePatient Records regulations: The Federal rules restrict any use of the information to criminally investigate or prosecute any alcohol or drug abuse patient.[facility] Encounter Details Date Type Department Care Team (Late st Contact Info) Description 11/29/2024 Patient Msg Radiation Oncology [address] [place] [address] Hyun Raza MD [address] [place] [address] Appointment Cancellation Request Social History Tobacco [...] is lower risk 4 11/18/2022 Data from: https://www.neighborhoodatlas.medicine.[facility]/. Last address used for calculation [address] [...] AM EST Office Visit Radiation Oncology [address] [facility] [facility] [place] [address] Hyun Raza MD [address] [place] [address] [place] [address] 3 month follow up documented as of this encounter Visit Diagnoses Not on filedocumented in this encounter Care Teams Commercial Development Manager Relationship Specialty Start Date End Date Shaikh Storm MD [address] [place] [address] PCP - General Primary Care 12/06/21 Ronaldo Alaniz MD [address] [place] [address] Referring Urology 12/06/21 Constance Durand LSW Electrical Tester Battery 03/04/22 documented as of this encounter
--- OUTSIDE RECORDS SUMMARY | 2025-02-13 10:46 | XMS_ITS | Encounter Summary ---
Author Organization [facility] Address [address] [place] [address] Phone Care Team Providers Care Chicken Raiser Name Role Phone Shaikh AUBREE Storm Primary Care Provider [phone] Encounter Details Date Type Department Care Team (Late st Contact Info) Description 03/23/2023 Scanned Document [facility] [address] [place] [phone] Scanning, Generic Provider Social History Tobacco Use [...] 10:00 AM EDT Office Visit [facility] [address] [facility] [address] [place] [address] Chaim Grayson DO [address] [facility] [address] [place], [place] [phone] documented as of this encounter Visit Diagnoses Not on filedocumented in this encounter Care Teams Chicken Raiser Relationship Specialty Start Date End Date Shaikh Storm MD PCP - General Internal Medicine 06/04/23 documented as of this encounter
--- OUTSIDE RECORDS SUMMARY | 2025-02-13 10:46 | XMS_ITS | Encounter Summary ---
Author Organization [facility] Address [address] [place] [address] Care Team Providers Care Esthetics Instructor Name Role Phone Shaikh AUBREE Storm Primary Care Provider Shaikh AUBREE Storm Primary Care Provider Brian Avalos MD Primary Care Provider [phone] Kayley Ward NP Unavailable Encounter Details Date Type Department Care Team (Late st Contact Info) Description 05/12/2023 Orders Only [facility] [address] [place] [address] Claire James MD [address] [place] [address] Social History Tobacco Use Types Packs/Day Years [...] on filedocumented in this encounter Care Teams Esthetics Instructor Relationship Specialty Start Date End Date Shaikh Storm MD PCP - General Internal Medicine 06/01/22 09/27/23 Shaikh Storm MD [address] [place] [address] PCP - General Internal Medicine 09/28/23 01/11/24 Brian Avalos MD [address] [place] [address] PCP - General Family Medicine 01/12/24 Kayley Ward NP [address] [place] [address] Nurse Practitioner Family Medicine 01/12/24 documented as of this encounter
--- OUTSIDE RECORDS SUMMARY | 2025-02-13 10:46 | XMS_ITS | Encounter Summary ---
Author Organization [facility] Address [address] [place] [address] Care Team Providers Care Emerging Solutions Executive Name Role Phone Shaikh AUBREE Storm Primary Care Provider [phone] Ronaldo Alaniz MD Unavailable [phone] Constance Durand Unavailable Unavailable Source Comments In the event this information is protected by the Federal Confidentiality of Alcohol and Drug AbusePatient Records regulations: The Federal rules restrict any use of the information to criminally investigate or prosecute any alcohol or drug abuse patient.[facility] Encounter Details Date Type Department Care Team (Late st Contact Info) Description 11/29/2024 Patient Msg Radiation Oncology [address] [facility] [place] [address] Hyun Raza MD [address] [place] [address] Appointment Cancellation Request [...] is lower risk 4 11/18/2022 Data from: https://www.neighborhoodatlas.medicine.[facility]/. Last address used for calculation [address] [...] AM EST Office Visit Radiation Oncology [address] [facility] [place] [address] Hyun Raza MD [address] [place] [address] [place] [address] 3 month follow up documented as of this encounter Visit Diagnoses Not on filedocumented in this encounter Care Teams Emerging Solutions Executive Relationship Specialty Start Date End Date Shaikh Storm MD [address] [place] [address] PCP - General Primary Care 12/06/21 Ronaldo Alaniz MD [address] [place] [address] Referring Urology 12/06/21 Constance Durand LSW Manager Stars 03/04/22 documented as of this encounter
--- OUTSIDE RECORDS SUMMARY | 2025-02-13 10:46 | XMS_ITS | Encounter Summary ---
Author Organization [facility] Address [address] [place] [address] Care Team Providers Care Finance Admin Name Role Phone Shaikh AUBREE Storm Primary Care Provider [phone] Brian Avalos MD Primary Care Provider [phone] Kayley Ward NP Unavailable [phone] Encounter Details Date Type Department Care Team (Late st Contact Info) Description 10/01/2023 Orders Only [facility] [address] [place] [address] Shaikh Storm MD [address] [place] [address] Social History Tobacco Use Types Packs/Day Years [...] documented as of this encounter Care Teams Finance Admin Relationship Specialty Start Date End Date Shaikh Storm MD [address] [place] [address] PCP - General Internal Medicine 09/28/23 01/11/24 Brian Avalos MD [address] [place] [address] PCP - General Family Medicine 01/12/24 Kayley Ward NP [address] [place] [address] Nurse Practitioner Family Medicine 01/12/24 documented as of this encounter
--- OUTSIDE RECORDS SUMMARY | 2025-02-13 10:46 | XMS_ITS | Encounter Summary ---
Author Organization [facility] Address [address] [place] [address] Care Team Providers Care Exceptional Student Education Aide Name Role Phone Shaikh AUBREE Storm Primary Care Provider [phone] Ronaldo Alaniz MD Unavailable [phone] Constance Durand Unavailable Unavailable Source Comments In the event this information is protected by the Federal Confidentiality of Alcohol and Drug AbusePatient Records regulations: The Federal rules restrict any use of the information to criminally investigate or prosecute any alcohol or drug abuse patient.[facility] Encounter Details Date Type Department Care Team (Late st Contact Info) Description 11/29/2024 Patient Msg Radiation Oncology [address] [facility] [place] [address] Hyun Raza MD [address] [place] [address] Appointment Cancellation Request Social History Tobacco [...] is lower risk 4 11/18/2022 Data from: https://www.neighborhoodatlas.medicine.[facility]/. Last address used for calculation [...] AM EST Office Visit Radiation Oncology [address] [facility] [place] [address] Hyun Raza MD [address] [place] [address] [place] [address] 3 month follow up documented as of this encounter Visit Diagnoses Not on filedocumented in this encounter Care Teams Exceptional Student Education Aide Relationship Specialty Start Date End Date Shaikh Storm MD [address] [place] [address] PCP - General Primary Care 12/06/21 Ronaldo Alaniz MD [address] [place] [address] Referring Urology 12/06/21 Constance Durand LSW Police Lieutenant 03/04/22 documented as of this encounter
--- OUTSIDE RECORDS SUMMARY | 2025-02-13 10:46 | XMS_ITS | Encounter Summary ---
Author Organization [facility] Address [address] [facility] [place] [address] Care Team Providers Care Toll Test Worker Name Role Phone Shaikh AUBREE Storm Primary Care Provider [phone] Shaikh AUBREE Storm Primary Care Provider Brian Avalos MD Primary Care Provider Kayley Ward NP Unavailable [phone] Encounter Details Date Type Department Care Team (Late st Contact Info) Description 07/29/2023 Orders Only [facility] [address] [place] [address] Shaikh Storm MD [address] [place] [address] Social History Tobacco Use Types Packs/Day Years [...] Unknown Shaikh Dotty [facility] Final Result documented in this encounter Visit Diagnoses Not on filedocumented in this encounter Care Teams Toll Test Worker Relationship Specialty Start Date End Date Shaikh Storm MD PCP - General Internal Medicine 06/01/22 09/27/23 Shaikh Storm MD [address] [place] [address] PCP - General Internal Medicine 09/28/23 01/11/24 Brian Avalos MD [address] [place] [address] PCP - General Family Medicine 01/12/24 Kayley Ward NP [address] [place] [address] Nurse Practitioner Family Medicine 01/12/24 documented as of this encounter
--- OUTSIDE RECORDS SUMMARY | 2025-02-13 10:46 | XMS_ITS | Encounter Summary ---
Author Organization [facility] Address [address] [place] [address] Phone Care Team Providers Care Armed Security Officer Name Role Phone Shaikh AUBREE Storm Primary Care Provider [phone] Encounter Details Date Type Department Care Team (Late st Contact Info) Description 03/09/2023 Scanned Document [facility] [address] [place] [address] Scanning, Generic Provider Social History Tobacco Use [...] Description 08/30/2025 10:00 AM EDT Office Visit [facility] [address] [facility] [address] [place] [address] Chaim Grayson DO [address] [facility] [address] [place], [place] [address] documented as of this encounter Visit Diagnoses Not on filedocumented in this encounter Care Teams Armed Security Officer Relationship Specialty Start Date End Date Shaikh Storm MD PCP - General Internal Medicine 06/04/23 documented as of this encounter
--- OUTSIDE RECORDS SUMMARY | 2025-02-13 10:46 | XMS_ITS | Encounter Summary ---
Author Organization [facility] Address [address] [place] [address] Phone Care Team Providers Care Clay Products Glazer Name Role Phone Shaikh AUBREE Storm Primary Care Provider [phone] Encounter Details Date Type Department Care Team (Late st Contact Info) Description 08/10/2024 Scanned Document [facility] [address] [place] [address] Scanning, Generic Provider Social History Tobacco Use [...] Description 08/30/2025 10:00 AM EDT Office Visit [facility] [address] [facility] [address] [place] [address] Chaim Grayson DO [address] [facility] [address] [place] [address] documented as of this encounter Visit Diagnoses Not on filedocumented in this encounter Additional Health Concerns Assessment Noted Time A fall risk assessment has been complete d for the patient 08/18/2023 11:52 AM EDT documented as of this encounter Care Teams Clay Products Glazer Relationship Specialty Start Date End Date Shaikh Storm MD PCP - General Internal Medicine 06/04/23 documented as of this encounter
--- OUTSIDE RECORDS SUMMARY | 2025-02-13 10:46 | XMS_ITS | Clinical Summary ---
Author Organization [facility] Address [address] [place] [address] Care Team Providers Care Medical Sociologist Name Role Phone Shaikh AUBREE Storm Primary Care Provider [phone] Allergies Active Allergy Reactions Criticality Noted Date Comments Ezetimibe GI intolerance High 04/27/2023 Other reaction(s): Nausea/vomiting Ntxnwew-Ucr-Xuv Reductase Inhibitors Other Medium 03/30/2023 Muscle/Joint Pain [...] 08/17/2023 Active ergocalciferol (Vitamin D-2) 1.25 MG (20900 Units) capsule Take 1,250 mcg by mouth [...] tablet Refills(s) 0 09/18/2023 Active HYDROcodone-nat taminophen ([place]) 7.5-325 mg tablet 1 tablet. 02/06/2023 Active [...] 28.0-28.9,adult 08/18/2023 Atherosclerotic heart diseas e of [place] coronary artery without angina pectoris 06/29/2023 Overview [...] hips on prolonged ambulation. Patient is on [place] for chronic pain. He was evaluated by NS at [facility] and it seemed like they were concerned about possible opioid induced hyperalgesia. Patient has been trying to wean himself off of [place]ford but if he does not use it [...] foraminal stenosis Will refer to NS at [facility]. Tobacco abuse 06/29/2023 Overview (11/05/2023): Last Assessment & Plan: He is using Nicotine patches currently. Trying to quite smoking. Will call in [employer] for the patient. Patient counseled on smoking/tobacco [...] [place] [facility] Leg pain has improved and is doing well History of [place] (myocardial infarction) 06/04/2023 Kidney disease 06/04/2023 Kidney [...] e alcohol) Have not drank for years [facility] Utilities Answer Date Recorded In the past 12 months has th e [employer], gas, oil, or water [employer] threatened to shut off services in your [...] place to sleep or slept in a detention (including now)? No 01/12/2024 Hunger Vital Sign [...] 12:45 PM 11/18/2023 2:28 PM Care Teams Medical Sociologist Relationship Specialty Start Date End Date Shaikh Storm MD PCP - General Family Medicine 09/02/23
--- OUTSIDE RECORDS SUMMARY | 2025-02-13 10:46 | XMS_ITS | Clinical Summary ---
Author Organization [facility] Address [address] [place] [address] Phone Care Team Providers Care Thermal Cutting Machine Operator Name Role Phone Shaikh AUBREE Storm Primary Care Provider [phone] Allergies Active Allergy Reactions Criticality Noted Date Comments Ezetimibe GI intolerance,Nausea/vo miting High 04/27/2023 Doqygsf-Ioz-Nbh Reductase Inhibitors Other Medium 03/30/2023 Muscle/Joint Pain Medications aspirin 81 mg EC tablet Take 1 tablet (81 mg) by mouth once daily. Active ergocalciferol (Vitamin D-2) 1.25 MG (10040 UT) capsule Take 1 capsule (1,250 mcg) by mouth 1 (one) time per week. 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 MPI No ischemia/no infarct TID [...] (08/30/2024 1:10 PM EDT): Right lower extremity SUPERVISOR PLEATING/stenting Follows routinely with vascular Denies claudication History of [place] (myocardial infarction) 06/04/2023 CVA (cerebral vascular accident) [...] Description 08/30/2025 10:00 AM EDT Office Visit [facility] [address] [facility] [address] [place] [address] Chaim Grayson DO [address] [facility] [address] [place] [address] Health Maintenance Due Date Last Done Comments [...] patient's age to complete this topic Insurance [employer] Care Teams Thermal Cutting Machine Operator Relationship Specialty Start Date End Date Shaikh Storm MD PCP - General Internal Medicine 06/04/23
--- OUTSIDE RECORDS SUMMARY | 2025-02-13 10:46 | XMS_ITS | Encounter Summary ---
Author Organization [facility] Address [address] [place] [address] Care Team Providers Care Pilot Highway Patrol Name Role Phone Shaikh AUBREE Storm Primary Care Provider Brian Avalos MD Primary Care Provider [phone] Kayley Ward NP Unavailable [phone] Encounter Details Date Type Department Care Team (Late st Contact Info) Description 10/02/2023 Orders Only [facility] [address] [place] [address] Shaikh Storm MD [address] [place] [address] Social History Tobacco Use Types Packs/Day Years [...] documented as of this encounter Care Teams Pilot Highway Patrol Relationship Specialty Start Date End Date Shaikh Storm MD [address] [place] [address] PCP - General Internal Medicine 09/28/23 01/11/24 Brian Avalos MD [address] [place] [address] PCP - General Family Medicine 01/12/24 Kayley Ward NP [address] [place] [address] Nurse Practitioner Family Medicine 01/12/24 documented as of this encounter
--- OUTSIDE RECORDS SUMMARY | 2025-02-13 10:46 | XMS_ITS | Encounter Summary ---
Author Organization [facility] Address [address] [place] [phone] Phone Care Team Providers Care Volumetric Weigher Name Role Phone Shaikh AUBREE Storm Primary Care Provider [phone] Encounter Details Date Type Department Care Team (Late st Contact Info) Description 01/14/2023 Scanned Document [facility] [address] [place] [address] Conversion, Onbase Social History Tobacco Use Types [...] Description 08/30/2025 10:00 AM EDT Office Visit [place] [address] [facility] [address] [place] [address] Chaim Grayson DO [address] [facility] [address] [place] [address] documented as of this encounter Visit Diagnoses Not on filedocumented in this encounter Care Teams Volumetric Weigher Relationship Specialty Start Date End Date Shaikh Storm MD PCP - General Internal Medicine 06/04/23 documented as of this encounter
--- OUTSIDE RECORDS SUMMARY | 2025-02-13 10:46 | XMS_ITS | Encounter Summary ---
Author Organization [facility] Address [address] [place] [address] Phone Care Team Providers Care Clam Dredger Name Role Phone Shaikh AUBREE Storm Primary Care Provider [phone] Encounter Details Date Type Department Care Team (Late st Contact Info) Description 10/15/2023 Scanned Document [facility] [address] [place] [address] Scanning, Generic Provider Social History Tobacco Use [...] Description 08/30/2025 10:00 AM EDT Office Visit [facility] [address] [facility] [address] [place] [address] Chaim Grayson DO [address] [facility] [address] [place] [address] Scheduled Orders Name Type Priority Associated Diagnoses Orde r Schedule Ultrasound- OnBase Scan Imaging O rdered: 10/15/2023 documented as of this encounter Visit Diagnoses Not on filedocumented in this encounter Additional Health Concerns Assessment Noted Time A fall risk assessment has been complete d for the patient 08/18/2023 11:52 AM EDT documented as of this encounter Care Teams Clam Dredger Relationship Specialty Start Date End Date Shaikh Storm MD PCP - General Internal Medicine 06/04/23 documented as of this encounter
--- OUTSIDE RECORDS SUMMARY | 2025-02-13 10:46 | XMS_ITS | Encounter Summary ---
Author Organization [facility] Address [address] [place] [address] Care Team Providers Care Culinary Instructor Name Role Phone Shaikh AUBREE Storm Primary Care Provider Shaikh AUBREE Storm Primary Care Provider Brian Avalos MD Primary Care Provider Kayley Ward NP Unavailable [phone] Encounter Details Date Type Department Care Team (Late st Contact Info) Description 05/21/2023 External Result Encounter [facility] External Department Unsolicited Shaikh Storm MD [address] [place] [address] Social History Tobacco Use Types Packs/Day Years [...] 11:42 AM EST) 05/21/2023 11:4 2 AM [facility] - 05/22/2023 11:09 AM [place] [id number] Electrocardiograph Report Signed Patient: Vasyl Broussard MR#: [id number] : [id number] Acct:[id number] Age/Sex: 77 / M ADM Date: 05/21/23 [...] undetermined Abnormal ECG Confirmed by [facility] ([id number] on 05/21/2023 5:04:18 PM Referred By: Electronically Signed By:BARBARA ZACARIAS MD [facility] Transcribed By: MUS Signed By Chaim Zacarias MD 05/21/23 1704 Procedure Note Gabrielle Zacarias MD - 05/22/2023 [place] [id number] Electrocardiograph Report Signed Patient: Vasyl Broussard RMR#: [id number] : 6Acct:[id number] Age/Sex: 77 / MADM Date: 05/21/23 Loc: [...] MUS Signed By Chaim Zacarias MD 05/21/23 9221 us Shaikh Dotty MAK ECG ORDERABLES Final Result [facility] [address] [address], documented in this encounter Visit Diagnoses Not on filedocumented in this encounter Care Teams Culinary Instructor Relationship Specialty Start Date End Date Shaikh Storm MD PCP - General Internal Medicine 06/01/22 09/27/23 Shaikh Storm MD [address] [place] [address] PCP - General Internal Medicine 09/28/23 01/11/24 Brian Avalos MD [address] [place] [address] PCP - General Family Medicine 01/12/24 Kayley Ward NP [address] [place] [address] Nurse Practitioner Family Medicine 01/12/24 documented as of this encounter
--- OUTSIDE RECORDS SUMMARY | 2025-02-13 10:46 | XMS_ITS | Encounter Summary ---
Author Organization [facility] Address [address] [place] [address] Phone Care Team Providers Care Courtroom Deputy Name Role Phone Shaikh AUBREE Storm Primary Care Provider [phone] Encounter Details Date Type Department Care Team (Late st Contact Info) Description 05/21/2023 Scanned Document [facility] [address] [place] [address] Scanning, Generic Provider Social History Tobacco Use [...] EDT Office Visit [facility] [address] [facility] [address] [place] [address] Chaim Grayson DO [address] [facility] [address] [place], [place] [phone] documented as of this encounter Visit Diagnoses Not on filedocumented in this encounter Care Teams Courtroom Deputy Relationship Specialty Start Date End Date Shaikh Storm MD PCP - General Internal Medicine 06/04/23 documented as of this encounter
--- OUTSIDE RECORDS SUMMARY | 2025-02-13 10:46 | XMS_ITS | Encounter Summary ---
Author Organization [facility] Address [address] [place] [address] Phone Care Team Providers Care Technical Service Engineer Name Role Phone Shaikh AUBREE Storm Primary Care Provider [phone] Encounter Details Date Type Department Care Team (Late st Contact Info) Description 04/16/2023 Scanned Document [facility] [address] [place] [address] Scanning, Generic Provider Social History Tobacco Use [...] Description 08/30/2025 10:00 AM EDT Office Visit [facility] [address] [facility] [address] [place] [address] Chaim Grayson DO [address] [facility] [address] [place], [place] [address] Scheduled Orders Name Type Priority Associated Diagnoses Orde r Schedule ULTRASOUND - ONBASE SCAN Imaging Ordered: 04/16/2023 documented as of this encounter Visit Diagnoses Not on filedocumented in this encounter Care Teams Technical Service Engineer Relationship Specialty Start Date End Date Shaikh Storm MD PCP - General Internal Medicine 06/04/23 documented as of this encounter
--- OUTSIDE RECORDS SUMMARY | 2025-02-13 10:46 | XMS_ITS | Clinical Summary ---
Author Organization [facility] Address [address] [place], [place] [address] Care Team Providers Care Pastoral Worker Name Role Phone Shaikh AUBREE Storm Primary Care Provider [phone] Ronaldo Alaniz MD Unavailable [phone] Constance Durand Unavailable Unavailable Allergies No known [...] 9:45 AM EDT Office Visit Radiation Oncology [address] [place] [address] [place] [address] Hyun Raza MD Cancer of prostate w/med recur risk (T2b-c or [place] 7 or PSA 10-20) (HCC) (Primary Dx) 01/18/2025 Travel 01/11/2025 Travel 11/29/2024 Patient Msg Radiation Oncology [address] [place] [address] Hyun Raza MD Appointment Cancellation Request 11/29/2024 Patient Msg Radiation Oncology [address] [place] [address] Hyun Raza MD Appointment Cancellation Request 11/29/2024 Patient Msg Radiation Oncology [address] [place] [address] Hyun Raza MD Appointment Cancellation Request from [...] is lower risk 4 11/18/2022 Data from: https://www.[email or web address].medicine.[email or web address] Last address used for calculation 17[address] [...] AM EST Office Visit Radiation Oncology [address] [place] [address] Hyun Raza MD [address] [place] [address] 3 month follow up Health Maintenance Due [...] 1.56 <2.60 ng/mL 01/12/2025 10:52 PM EDT [facility] Comment:Total PSA test metho dology used is the Electrochemiluminescence Immunoassay by [employer]. Total PSA values by differing methodologies cannot be interchanged. Blood BLOOD SPECIMEN / Unknown Venipuncture / Unknown 01/12/2025 11:43 AM EDT 01/12/2025 11:43 AM EDT us G Jose Raza MD LABORATORY Final Resul t [facility] [address] [address], from Last 3 Months Insurance [employer] Care Teams Pastoral Worker Relationship Specialty Start Date End Date Shaikh Storm MD [facility] [place] [address] PCP - General Primary Care 12/06/21 Ronaldo Alaniz MD [address] [place] [address] Referring Urology 12/06/21 Constance Durand LSW [employer] 03/04/22
[2025-02-13 11:09] LABS: Hematocrit 39.3 % (42.0-54.0); Hemoglobin 12.9 g/dL (14.0-18.0); Mean Corpuscular HGB Conc 32.8 g/dL (29.9-35.2); Mean Corpuscular Hemoglobin 30.9 pg (25.9-34.0); Mean Corpuscular Volume 94.0 fL (80.0-94.0); Platelet Count 271 10^3/uL (150-450); Red Blood Count 4.18 10^6/uL (4.70-6.10); White Blood Count 8.0 10^3/uL (4.0-11.0)
[2025-02-13 11:32] LABS: Albumin Level 3.8 g/dL (3.4-5.0); Anion Gap 14.6; Blood Urea Nitrogen 28.0 mg/dL (7.0-18.0); Calcium 9.2 mg/dL (8.5-10.1); Carbon Dioxide 23.6 mmol/L (21.0-32.0); Chloride 106 mmol/L (98-107); Estimated GFR (African America 41 (>=60 mL/min/1.73m^2); Estimated GFR (Non-African Ame 34 (>=60 mL/min/1.73m^2); Glucose 105 mg/dL (74-106); Magnesium 2.0 mg/dL (1.8-2.4); Potassium 5.2 mmol/L (3.5-5.1); Sodium 139 mmol/L (136-145); Uric Acid 6.6 mg/dL (3.5-7.2)
[2025-02-13 12:10] LABS: Iron 80.0 ug/dL (65.0-175.0); Percent Iron Saturation 22.6 %; Total Iron Binding Capacity 354.0 ug/dL (250.0-450.0)
[2025-02-13 13:10] LABS: Ferritin 45.0 ng/mL (26.0-388.0)
[2025-02-13 13:20] LABS: Glucose Urine UA NEGATIVE (NEGATIVE)
[2025-02-13 13:32] LABS: Cast Seen? NONE SEEN #/LPF (NONE SEEN); Crystals Seen? None Seen #/HPF (None Seen)
[2025-02-13 14:46] LABS: Protein Creatinine Ratio Urine 0.69; Total Protein Urine Random 147.8 mg/dL (<=11.9)
== END 2025-02-13 10:42 | disposition home or self-care (01) ==
LOC: LAB 10:43
PROVIDERS: PCP Internal Medicine; Visit Provider Internal Medicine
DX: R31.29 Other microscopic hematuria (principal); N25.81 Secondary hyperparathyroidism of renal origin; I12.9 Hypertensive chronic kidney disease with stage 1 through stage 4 chronic kidney disease, or unspecified chronic kidney disease; N18.9 Chronic kidney disease, unspecified; D63.1 Anemia in chronic kidney disease; N18.30 Chronic kidney disease, stage 3 unspecified
CPT/HCPCS: 36415; 80069; 81001; 82306; 82570; 82728; 83540; 83550; 83735; 83970; 84156; 84550; 85027

== ENCOUNTER 2025-02-21 09:49 | Outpatient (OUT) | payer MEDICARE, SELFPAY ==
--- OUTSIDE RECORDS SUMMARY | 2025-02-21 09:52 | XMS_ITS | Encounter Summary ---
Author Organization [facility] Address [address] [place] [address] Care Team Providers Care Senior Director Finance Name Role Phone Brian Avalos MD Primary Care Provider Kayley Ward NP Unavailable Encounter Details Date Type Department Care Team (Late st Contact Info) Description 04/11/2024 Orders Only [facility] [address] [address] Kayley Ward NP Social History Tobacco Use [...] declined 01/20/2024 How often do you attend hoahaoism or shinto serv ices? Patient declined 01/20/2024 Do you belong to any clubs o r organizations such as hoahaoism groups, unions, fraternal or athletic groups, or [...] LABS (04/11/2024 3:25 PM EST) Kayley Ward IT APPLICATION DEVELOPMENT MANAGER LAB CHG PERFORMABLES Fin al Result * SCANNED LABS (04/11/2024 9:23 AM EST) Kayley Ward IT APPLICATION DEVELOPMENT MANAGER LAB CHG PERFORMABLES Fin al Result documented in this encounter Visit Diagnoses Not on filedocumented in this encounter Additional Health Concerns Assessment Noted Time PHQ-9 Depression Total Score: 5 12/08/19 24 11:00 AM EDT documented as of this encounter Care Teams Senior Director Finance Relationship Specialty Start Date End Date Brian Avalos MD PCP - General Family Medicine 01/12/24 Kayley Ward NP Nurse Practitioner Family Medicine 01/12/24 documented as of this encounter
--- OUTSIDE RECORDS SUMMARY | 2025-02-21 09:52 | XMS_ITS | Encounter Summary ---
Author Organization [facility] Address [address] [place] [address] Care Team Providers Care Electrical Maintenance Supervisor Name Role Phone Brian Avalos MD Primary Care Provider [phone] Kayley Ward DIVORCE ATTORNEY Unavailable [phone] Encounter Details Date Type Department Care Team (Late st Contact Info) Description 08/15/2024 Orders Only [facility] [address] [place] [address] Claire James MD [address] [place] [address] Social History Tobacco Use Types Packs/Day Years [...] declined 01/20/2024 How often do you attend shinto or synagogue serv ices? Patient declined 01/20/2024 Do you belong to any clubs o r organizations such as shinto groups, unions, fraternal or athletic groups, or [...] you homeless or living in a senior care (including now)? No 01/20/2024 Sex and Gender [...] documented as of this encounter Care Teams Electrical Maintenance Supervisor Relationship Specialty Start Date End Date Brian Avalos MD PCP - General Family Medicine 01/12/24 Kayley Ward NP Nurse Practitioner Family Medicine 01/12/24 documented as of this encounter
--- OUTSIDE RECORDS SUMMARY | 2025-02-21 09:52 | XMS_ITS | Clinical Summary ---
Author Organization [facility] Address [address] [place] [address] Care Team Providers Care Social Services Name Role Phone Shaikh AUBREE Storm Primary Care Provider [phone] Ronaldo Alaniz MD Unavailable [phone] Constance Durand Unavailable Unavailable Allergies No known active allergies Medications aspirin 81 mg cap Take by mouth. 1 Active pravastatin (PRAVACHOL) 10 mg tablet pravastatin 10 mg tablet 1 Active amLODIPine (NORVASC) 10 mg tablet amlodipine 10 mg tablet 1 Active ergocalciferol, vitamin D2, (VITAMIN D2 ORAL) Take by mouth. Activ e HYDROcodone-nat taminophen (NORCO) 5-325 mg per tablet Take 1 tablet by mouth two times a day as needed for pain. Active clopidogrel (PLAVIX) 75 mg tablet Take 75 mg by mouth once daily. Active lisinopril (ZESTRIL) 20 mg tablet Take 1 tablet by mouth once daily. 1 Active pregabalin (LYRICA) 50 mg capsule Take 1 capsule by mouth two times a day. Active Active Problems Problem Noted Date Diagnosed Date Stage 3 chronic kidney disease 11/19/2022 Prostate cancer 11/18/2022 Encounters Date Type Department Care Team Description 01/18/2025 9:45 AM EDT Office Visit Radiation Oncology [address] [place] [address] [place] [address] Hyun Raza MD Cancer of prostate w/med recur risk (T2b-c or [place] 7 or PSA 10-20) (HCC) (Primary Dx) 01/18/2025 Travel 01/11/2025 Travel 11/29/2024 Patient Msg Radiation Oncology [address] [place] [address] Hyun Raza MD Appointment Cancellation Request 11/29/2024 Patient Msg Radiation Oncology [address] [place] [address] Hyun Raza MD Appointment Cancellation Request 11/29/2024 Patient Msg Radiation Oncology [address] [place] [address] [place] [address] Hyun Raza MD Appointment Cancellation Request from [...] is lower risk 4 11/18/2022 Data from: https://www.neighborhoodatlas.medicine.[facility].edu/. Last address used for calculation [address] [...] AM EST Office Visit Radiation Oncology [address] [place] [address] Hyun Raza MD [address] [place] [address] 3 month follow up Health Maintenance Due [...] 1.56 <2.60 ng/mL 01/12/2025 10:52 PM EDT [facility] Comment:Total PSA test metho dology used is the Electrochemiluminescence Immunoassay by [employer]. Total PSA values by differing methodologies cannot be interchanged. Blood BLOOD SPECIMEN / Unknown Venipuncture / Unknown 01/12/2025 11:43 AM EDT 01/12/2025 11:43 AM EDT us G Jose Raza MD LABORATORY Final Resul t [facility] [address] [place] [address], [place] from Last 3 Months Insurance [employer] Care Teams Social Services Relationship Specialty Start Date End Date Shaikh Storm MD [address] [place] [address] PCP - General Primary Care 12/06/21 Ronaldo Alaniz MD [address] [address] Referring Urology 12/06/21 Constance Durand LSW Architectural Engineer 03/04/22
--- OUTSIDE RECORDS SUMMARY | 2025-02-21 09:52 | XMS_ITS | Encounter Summary ---
Author Organization [facility] Address [address] [place] [address] Care Team Providers Care Rear Admiral Name Role Phone Brian Avalos MD Primary Care Provider [phone] Kayley Ward ENVIRONMENTAL SERVICE AIDE Unavailable [phone] Reason for Visit * Reason Comments Med Refill Encounter Details Date Type Department Care Team (Late st Contact Info) Description 12/09/2024 Refill [facility] [address] [address] Qian Son NP [address] [place] [address] Primary hypertension Social History Tobacco Use Types [...] declined 01/20/2024 How often do you attend sikhism or confucianism serv ices? Patient declined 01/20/2024 Do you belong to any clubs o r organizations such as sikhism groups, unions, fraternal or athletic groups, or [...] No 01/20/2024 Housing Stability Vital Sign Answer Erginald e Recorded In the last 12 months, was t here a time when you were not able to pay the mortgage or rent on time? No 01/20/2024 Number of Times Moved in the Last Year Not on fi le 01/20/2024 At any time in the past 12 m [facility], were you homeless or living in a [...] documented as of this encounter Care Teams Rear Admiral Relationship Specialty Start Date End Date Brian Avalos MD PCP - General Family Medicine 01/12/24 Kayley Ward NP Nurse Practitioner Family Medicine 01/12/24 documented as of this encounter
--- OUTSIDE RECORDS SUMMARY | 2025-02-21 09:52 | XMS_ITS | Encounter Summary ---
Author Organization [facility] Address [address] [place] [address] Care Team Providers Care Blood Coordinator Name Role Phone Shaikh AUBREE Storm Primary Care Provider Shaikh AUBREE Storm Primary Care Provider Brian Avalos MD Primary Care Provider Kayley Ward NP Unavailable [phone] Encounter Details Date Type Department Care Team (Late st Contact Info) Description 05/12/2023 Orders Only [facility] [address] [address] Claire James MD [address] [place] [address] Social History Tobacco Use Types Packs/Day Years [...] on filedocumented in this encounter Care Teams Blood Coordinator Relationship Specialty Start Date End Date Shaikh Storm MD PCP - General Internal Medicine 06/01/22 09/27/23 Shaikh Storm MD [address] [place] [address] PCP - General Internal Medicine 09/28/23 01/11/24 Brian Avalos MD [address] [place] [address] PCP - General Family Medicine 01/12/24 Kayley Ward NP [address] [place] [address] Nurse Practitioner Family Medicine 01/12/24 documented as of this encounter
--- OUTSIDE RECORDS SUMMARY | 2025-02-21 09:52 | XMS_ITS | Encounter Summary ---
Author Organization [facility] Address [address] [place] [address] Care Team Providers Care Shirt Sewer Name Role Phone Brian Avalos MD Primary Care Provider [phone] Kayley Ward HOT WORT SETTLER Unavailable [phone] Encounter Details Date Type Department Care Team (Late st Contact Info) Description 08/09/2024 Orders Only [facility] [address] [place] [address] Claire James MD [address] [place] [address] Social History Tobacco Use Types Packs/Day Years [...] declined 01/20/2024 How often do you attend worship or yazidi serv ices? Patient declined 01/20/2024 Do you belong to any clubs o r organizations such as worship groups, unions, fraternal or athletic groups, or [...] time in the past [address] [facility], were you homeless or living in a nursing home (including now)? No 01/20/2024 Sex and [...] documented as of this encounter Care Teams Shirt Sewer Relationship Specialty Start Date End Date Brian Avalos MD PCP - General Family Medicine 01/12/24 Kayley Ward NP Nurse Practitioner Family Medicine 01/12/24 documented as of this encounter
--- OUTSIDE RECORDS SUMMARY | 2025-02-21 09:52 | XMS_ITS | Encounter Summary ---
Author Organization [facility] Address [address] [facility] [place] [address] Care Team Providers Care Plumbing Inspector Name Role Phone Shaikh AUBREE Storm Primary Care Provider Shaikh AUBREE Storm Primary Care Provider Brian Avalos MD Primary Care Provider [phone] Kayley Ward NP Unavailable [phone] Encounter Details Date Type Department Care Team (Late st Contact Info) Description 07/29/2023 Orders Only [facility] [address] [place] [address] Shaikh Storm MD [address] [place] [address] Social History Tobacco Use Types Packs/Day Years [...] on filedocumented in this encounter Care Teams Plumbing Inspector Relationship Specialty Start Date End Date Shaikh Storm MD PCP - General Internal Medicine 06/01/22 09/27/23 Shaikh Storm MD [address] [place] [address] PCP - General Internal Medicine 09/28/23 01/11/24 Brian Avalos MD [address] [place] [address] PCP - General Family Medicine 01/12/24 Kayley Ward NP [address] [place] [address] Nurse Practitioner Family Medicine 01/12/24 documented as of this encounter
--- OUTSIDE RECORDS SUMMARY | 2025-02-21 09:52 | XMS_ITS | Encounter Summary ---
Author Organization [facility] Address [address] [place] [address] Care Team Providers Care Steam Trap Worker Name Role Phone Brian Avalos MD Primary Care Provider Kayley Ward PLASTER FORM MAKER Unavailable [phone] Encounter Details Date Type Department Care Team (Late st Contact Info) Description 09/05/2024 Orders Only [facility] [address] [facility] [address] Claire James MD [address] [place] [address] Social History Tobacco Use Types Packs/Day Years [...] How often do you attend gnosticism or cheondoism serv ices? Patient declined 01/20/2024 Do you [...] any time in the past 12 m [facility], were you homeless or living in a detention (including now)? No 01/20/2024 Sex and Gender [...] documented as of this encounter Care Teams Steam Trap Worker Relationship Specialty Start Date End Date Brian Avalos MD PCP - General Family Medicine 01/12/24 Kayley Ward NP Nurse Practitioner Family Medicine 01/12/24 documented as of this encounter
--- OUTSIDE RECORDS SUMMARY | 2025-02-21 09:52 | XMS_ITS | Encounter Summary ---
Author Organization [facility] Address [address] [place] [address] Care Team Providers Care Home Care Consultant Name Role Phone Shaikh AUBREE Storm Primary Care Provider [phone] Brian Avalos MD Primary Care Provider [phone] Kayley Ward NP Unavailable [phone] Encounter Details Date Type Department Care Team (Late st Contact Info) Description 10/01/2023 Orders Only [facility] [address] [place] [address] Shaikh Storm MD [address] [place] [address] Social History Tobacco Use Types Packs/Day Years [...] documented as of this encounter Care Teams Home Care Consultant Relationship Specialty Start Date End Date Shaikh Storm MD [address] [place] [address] PCP - General Internal Medicine 09/28/23 01/11/24 Brian Avalos MD [address] [place] [address] PCP - General Family Medicine 01/12/24 Kayley Ward NP [address] [place] [address] Nurse Practitioner Family Medicine 01/12/24 documented as of this encounter
--- OUTSIDE RECORDS SUMMARY | 2025-02-21 09:52 | XMS_ITS | Encounter Summary ---
Author Organization [facility] Address [address] [place] [address] Care Team Providers Care Ski Molder Name Role Phone Brian Avalos MD Primary Care Provider [phone] Kayley Ward ENGINEERING ILLUSTRATOR Unavailable [phone] Encounter Details Date Type Department Care Team (Late st Contact Info) Description 08/25/2024 Orders Only [facility] [address] [facility] [address] Cherie William NP [address] [place] [address] Social History Tobacco Use Types [...] declined 01/20/2024 How often do you attend sikh or methodist serv ices? Patient declined 01/20/2024 Do you belong to any clubs o r organizations such as sikh groups, unions, fraternal or athletic groups, or [...] any time in the past 12 m [facility], were you homeless or [...] documented as of this encounter Care Teams Ski Molder Relationship Specialty Start Date End Date Brian Avalos MD PCP - General Family Medicine 01/12/24 Kayley Ward NP Nurse Practitioner Family Medicine 01/12/24 documented as of this encounter
--- OUTSIDE RECORDS SUMMARY | 2025-02-21 09:52 | XMS_ITS | Encounter Summary ---
Author Organization [facility] Address [address] [place] [address] Care Team Providers Care Regulatory Process Manager Name Role Phone Brian Avalos MD Primary Care Provider [phone] Kayley Ward EEG TECH Unavailable Encounter Details Date Type Department Care Team (Late st Contact Info) Description 08/10/2024 Orders Only [facility] [address] [facility] [address] Claire James MD [address] [place] [address] Social History Tobacco Use Types Packs/Day Years [...] declined 01/20/2024 How often do you attend restorationist or roman catholic serv ices? Patient declined 01/20/2024 Do you belong to any clubs o r organizations such as restorationist groups, unions, fraternal or athletic groups, or [...] any time in the past 12 m [facility], were you homeless or living [...] documented as of this encounter Care Teams Regulatory Process Manager Relationship Specialty Start Date End Date Brian Avalos MD PCP - General Family Medicine 01/12/24 Kayley Ward NP Nurse Practitioner Family Medicine 01/12/24 documented as of this encounter
--- OUTSIDE RECORDS SUMMARY | 2025-02-21 09:52 | XMS_ITS | Encounter Summary ---
Author Organization [facility] Address [address] [place] [address] Care Team Providers Care Revenue Investigator Name Role Phone Shaikh AUBREE Storm Primary Care Provider [phone] Brian Avalos MD Primary Care Provider [phone] Kayley Ward NP Unavailable [phone] Encounter Details Date Type Department Care Team (Late st Contact Info) Description 12/09/2023 Orders Only [facility] [address] [place] [address] Cornel Ravi MD [address] [place] [address] Social History Tobacco Use Types [...] documented as of this encounter Care Teams Revenue Investigator Relationship Specialty Start Date End Date Shaikh Storm MD [address] [place] [address] PCP - General Internal Medicine 09/28/23 01/11/24 Brian Avalos MD [address] [place] [address] PCP - General Family Medicine 01/12/24 Kayley Ward NP [address] [place] [address] Nurse Practitioner Family Medicine 01/12/24 documented as of this encounter
--- OUTSIDE RECORDS SUMMARY | 2025-02-21 09:52 | XMS_ITS | Clinical Summary ---
Author Organization [facility] Address [address] [facility] [place] [address] Care Team Providers Care Pet Caretaker Name Role Phone Brian Avalos MD Primary Care Provider [phone] Kayley Ward CAR CLEANING SUPERVISOR Unavailable Allergies Active Allergy Reactions Criticality Noted Date Comments Ezetimibe GI intolerance 04/27/2023 Statins Other Medium 03/30/2023 Muscle/Joint Pain Other Reaction(s): Other Muscle/Joint Pain Other Reaction(s): lipitor Medications pravastatin (Pravachol) 40 MG tablet Take 40 mg by mouth at bedtime. Active ergocalciferol (Vitamin D-2) 1.25 MG (77267 UT) capsule Take 1.25 mg by mouth [...] for Lumbar Stenosis. Recently reduced dosage of Ubly. Feels symptoms are well controlled. Continue current [...] joint 09/02/2023 Coronary artery disease invo lving [place] coronary artery of [place] heart without angina pectoris 06/29/2023 Assessment & [...] hips on prolonged ambulation. Patient is on Ubly for chronic pain. He was evaluated by NS at [facility] and it seemed like they were concerned about possible opioid induced hyperalgesia. Patient has been trying to wean himself off of Ubly but if he does not use it [...] foraminal stenosis Will refer to NS at [facility]. CVA (cerebral vascular accident) 06/04/2023 Assessment & Plan (06/29/2023 6:57 PM EST): Prior hx of ischemic CVA. No residual deficit. On ASA, statin. Carotid artery disease 06/04/2023 PAD (peripheral artery disease) 06/04/2023 Assessment & Plan (09/28/2023 9:43 AM EDT): On ASA, Plavix and statin. Left leg revascularization 2022 at [facility]. Leg pain has improved and is doing well Heart disease 06/04/2023 BPH (benign prostatic hyperplasia) 06/04/2023 History of AR (myocardial infarction) 06/04/2023 HLD (hyperlipidemia) 04/27/2023 Assessment [...] complaints to offer Follows up with Dr Jsutin. H/O prostate cancer 04/27/2023 Assessment & Plan [...] Encounters Date Type Department Care Team Description 02/13/2025 Clinisync Result Encounter NOMS External Department Unsolicited Provider, Generic External Data 01/12/2025 Clinisync Result Encounter NOMS External Department Unsolicited Provider, Generic External Data 12/09/2024 Refill [facility] [address] [place] [address] Qian Son NP Primary hypertension from Last [...] declined 01/20/2024 How often do you attend yarsanism or methodist serv ices? Patient declined 01/20/2024 Do you belong to any clubs o r organizations such as yarsanism groups, unions, fraternal or athletic groups, or [...] any time in the past 12 m [facility], were you homeless or living in [...] Procedure Name Priority Date/Time Associated Diagnosis Comments TBH URINE T PROTEIN CREAT RATIO Routine 02/13/2025 12:30 PM EDT [facility] URINALYSIS, WITH MICROSCOPIC Routine 02/13/2025 12:30 PM EDT [facility] PTH, INTRAOPERATIVE Routine 02/13/2025 10:59 AM EDT TBH VITAMIN D 25 [place] Routine 02/13/2025 1 0:59 AM EDT [facility] FERRITIN Routine 02/13/2025 10:59 AM EDT METRO IRON AND TIBC Routine 02/13/2025 1 0:59 AM EDT ALL MAGNESIUM Routine 02/13/2025 10:59 AM EDT ALL URIC ACID Routine 02/13/2025 10:59 AM EDT ALL RENAL FUNCTION PANEL Routine 02/13/2025 10:59 AM EDT [facility] CBC WITH PLATELET NO DIFFERENTIAL Routine 02/13/2025 10:59 AM EDT [facility] PSA SERPL-MCNC Routine 01/12/2025 11 :43 AM EDT from Last 3 Months Results * (ABNORMAL) TBH URINE T PROTEIN CREAT RATIO (02/13/2025 12:30 PM EDT) TOTAL PROTEIN URINE RANDOM 147.8(H) <=11.9 mg/dL TBH CREATININE URINE RANDOM 214.61 20.00 - 300.00 mg/dL TBH PROTEIN CREATININE RATIO URINE 0.69 TBH 02/13/2025 12:3 0 PM EDT 02/13/2025 12:45 PM EDT Narrative CLINISYNC - 02/13/2025 2:58 PM EDT us Generic External Data Provider CLINISYNC F inal Result CLINISYNC TB * (ABNORMAL) [facility] URINALYSIS, WITH MICROSCOPIC (02/13/2025 12:30 PM EDT) COLOR URINE LT. YELLOW YELLOW TBH CLARITY URINE SL CLOUDY CLEAR TBH SPECIFIC GRAVITY URINE 1.025 1.005 - 1.025 TBH PH URINE 5.5 5.0 - 9.0 TBH PROTEIN URINE 100(A) NEG/TRACE mg/dL TBH GLUCOSE URINE UA NEGATIVE NEGATIVE mg/dL TBH BILIRUBIN URINE SMALL(A) NEGATIVE TBH KETONES URINE TRACE(A) NEGATIVE mg/dL TBH BLOOD URINE TRACE-I NEGATIVE TBH NITRITE URINE NEGATIVE NEGATIVE TBH UROBILINOGEN URINE 0.2 0.2 - 1.0 EU/dL TBH LEUKOCYTE ESTERASE URINE LARGE(A) NEGATIVE TBH TBH WBC 50-75(A) NONE SEEN #/HPF TBH TBH RBC 0-2 0 - 2 #/HPF TBH BACTERIA URINE SMALL(A) NONE SEEN #/HPF TBH MUCUS URINE NONE SEEN NONE SEEN TBH SQUAMOUS EPITHELIAL CELL URINE RARE NONE/RARE #/LPF TBH CRYSTALS SEEN? None Seen None Seen #/HPF TBH CAST SEEN? NONE SEEN NONE SEEN #/LPF TBH 02/13/2025 12:3 0 PM EDT 02/13/2025 12:45 PM EDT Narrative CLINISYNC - 02/13/2025 1:32 PM EDT Generic External Data Provider DOLORES gonzalez Result Performing Organization Address [facility] de Phone Number DOLORES [facility] * TBH VITAMIN D 25 [place] (02/13/2025 10:59 AM EDT) VITAMIN D 43.3 ng/mL [facility] Comment: <20 ng/mL Vit D deficient 20-<30 ng/mL Vit D insufficient 30-100 ng/mL Vit D sufficient >100 ng/mL Potential Toxicity 02/13/2025 10:5 9 AM EDT 02/13/2025 11:03 AM EDT Narrative CLINISYNC - 02/13/2025 1:10 PM EDT Generic External Data Provider KEEGANISYNC F inal Result [facility] * METRO IRON AND TIBC (02/13/2025 10:59 AM EDT) TBH IRON 80.0 65.0 - 175.0 ug/dL TBH TBH TOTAL IRON BINDING CAPACITY 354.0 250.0 - 450.0 ug/dL TBH TBH PERCENT IRON SATURATION 22.6 % TBH 02/13/2025 10:5 9 AM EDT 02/13/2025 11:03 AM EDT Narrative CLINISYNC - 02/13/2025 12:10 PM EDT Generic External Data Provider CLINISYNC F inal Result Performing Organization Address City/[facility]/ZIP Co de Phone Number CLINISYNC TB * (ABNORMAL) [facility] PTH, INTRAOPERATIVE (02/13/2025 10:59 AM EDT) Pathologist [facility] PTH, INTACT 81(A) 15 - 65 pg/mL TBH Comment: Performed at: [address] [id number] Conveyor Man: Rojelio Nelson PhD, Phone: [phone] 02/13/2025 10:5 9 AM EDT 02/13/2025 11:03 AM EDT Narrative CLINISYNC - 02/14/2025 10:09 AM EDT Generic External Data Provider CLINISYNC F inal Result Performing Organization Address City/[facility]/ZIP Co de Phone Number CLINISYNC TBH * (ABNORMAL) [facility] CBC WITH PLATELET NO DIFFERENTIAL (02/13/2025 10:59 AM EDT) Pathologist [facility] TB WBC 8.0 4.0 - 11.0 10 3/uL TBH TBH RBC 4.18(L) 4.70 - 6.10 10 6/uL TBH TBH HGB 12.9(L) 14.0 - 18.0 g/dL TBH TBH HCT 39.3(L) 42.0 - 54.0 % TBH TBH MCV 94.0 80.0 - 94.0 fL TBH TBH MCH 30.9 25.9 - 34.0 pg TBH TBH MCHC 32.8 29.9 - 35.2 g/dL TBH TBH RDW 13.6 11.0 - 15.0 % TBH TBH PLT 271 150 - 450 10 3/uL TBH TBH MPV 10.3 9.5 - 13.5 fL TBH 02/13/2025 10:5 9 AM EDT 02/13/2025 11:03 AM EDT Narrative CLINISYNC - 02/13/2025 11:10 AM EDT Generic External Data Provider CLINISYNC F inal Result CLINISYNC TB * [facility] FERRITIN (02/13/2025 10:59 AM EDT) FERRITIN 45.0 26.0 - 388.0 ng/mL TBH 02/13/2025 10:5 9 AM EDT 02/13/2025 11:03 AM EDT Narrative CLINISYNC - 02/13/2025 1:10 PM EDT Generic External Data Provider CLINISYNC F inal Result Performing Organization Address [facility] Co de Phone Number CLINISYNC TB * ALL URIC ACID (02/13/2025 10:59 AM EDT) URIC ACID 6.6 3.5 - 7.2 mg/dL TBH 02/13/2025 10:5 9 AM EDT 02/13/2025 11:03 AM EDT Narrative CLINISYNC - 02/13/2025 11:39 AM EDT Generic External Data Provider CLINISYNC F inal Result Performing Organization Address City/[facility] Co de Phone Number CLINISYNC TB * (ABNORMAL) ALL RENAL FUNCTION PANEL (02/13/2025 10:59 AM EDT) SODIUM 139 136 - 145 mmol/L TBH POTASSIUM 5.2(H) 3.5 - 5.1 mmol/L TBH CHLORIDE 106 98 - 107 mmol/L TBH CARBON DIOXIDE 23.6 21.0 - 32.0 mmol/L TBH ANION GAP 14.6 TBH GLUCOSE 105 74 - 106 mg/dL TBH BLOOD UREA NITROGEN 28.0(H) 7.0 - 18.0 mg/dL TBH CREATININE 1.93(H) 0.70 - 1.30 mg/dL TBH TBH EGFR-AF BHUTANESE 41(L) >=60 mL/min/1.7 3m 2 TBH TBH EGFR-NON AF BHUTANESE 34(L) >=60 mL/min/1.7 3m 2 TBH BUN CREATININE RATIO 14.5 TBH CALCIUM 9.2 8.5 - 10.1 mg/dL TBH PHOSPHORUS 3.9 2.6 - 4.7 mg/dL TBH ALBUMIN LEVEL 3.8 3.4 - 5.0 g/dL TBH 02/13/2025 10:5 9 AM EDT 02/13/2025 11:03 AM EDT Narrative CLINISYNC - 02/13/2025 11:39 AM EDT Generic External Data Provider CLINISYNC F inal Result [facility] * ALL MAGNESIUM (02/13/2025 10:59 AM EDT) MAGNESIUM 2.0 1.8 - 2.4 mg/dL TB 02/13/2025 10:5 9 AM EDT 02/13/2025 11:03 AM EDT Narrative CLINISYNC - 02/13/2025 11:39 AM EDT Generic External Data Provider CLINISYNC F inal Result [facility] * [facility] PSA SERPL-MCNC (01/12/2025 11:43 AM EDT) [facility] PSA SERPL-MCNC 1.56 <2.60 ng/mL CCF Comment:Total PSA test metho dology used is the Electrochemiluminescence Immunoassay by [facility] [employer]. Total PSA values by differing methodologies cannot be interchanged. 01/12/2025 11:4 3 AM EDT 01/12/2025 2:35 PM EDT Narrative DOLORES - 01/12/2025 10:52 PM EDT Specimen Type: BLOOD SPECIMEN Ordering Facility: [facility] Address: [address] [place] [address] Original Ordering Provider: Hyun NAZARIO us Generic External Data Provider DOLORES F inal Result CLINISYNC [facility] [address] [facility] [address] [address] from Last 3 Months Insurance MEDICARE ADVANTAGE Care Teams Pet Caretaker Relationship Specialty Start Date End Date Brian Avalos MD PCP - General Family Medicine 01/12/24 Kayley Ward NP Nurse Practitioner Family Medicine 01/12/24
--- OUTSIDE RECORDS SUMMARY | 2025-02-21 09:52 | XMS_ITS | Encounter Summary ---
Author Organization [facility] Address [address] [place] [address] Phone Care Team Providers Care Business Supervisor Name Role Phone Shaikh AUBREE Storm Primary Care Provider [phone] Encounter Details Date Type Department Care Team (Late st Contact Info) Description 10/15/2023 Scanned Document [facility] [address] [place] [phone] Scanning, Generic Provider Social History Tobacco Use [...] Description 08/30/2025 10:00 AM EDT Office Visit [facility] [address] [facility] [address] [place] [phone] Chaim Grayson DO [address] [facility] [address] [place] [address] Scheduled Orders Name Type Priority Associated Diagnoses Orde r Schedule Ultrasound- OnBase Scan Imaging O rdered: 10/15/2023 documented as of this encounter Visit Diagnoses Not on filedocumented in this encounter Additional Health Concerns Assessment Noted Time A fall risk assessment has been complete d for the patient 08/18/2023 11:52 AM EDT documented as of this encounter Care Teams Business Supervisor Relationship Specialty Start Date End Date Shaikh Storm MD PCP - General Internal Medicine 06/04/23 documented as of this encounter
--- OUTSIDE RECORDS SUMMARY | 2025-02-21 09:52 | XMS_ITS | Encounter Summary ---
Author Organization [facility] Address [address] [place] [address] Care Team Providers Care Residential Sales Consultant Name Role Phone Brian Avalos MD Primary Care Provider [phone] Kayley Ward HELPDESK MANAGER Unavailable [phone] Encounter Details Date Type Department Care Team (Late st Contact Info) Description 08/24/2024 Orders Only [facility] [address] [place] [address] Cherie William NP [address] [place] [address] Social History Tobacco Use Types [...] declined 01/20/2024 How often do you attend synagogue or mandaeism serv ices? Patient declined 01/20/2024 Do you belong to any clubs o r organizations such as synagogue groups, unions, fraternal or athletic groups, or [...] time in the past 12 m [facility], were you homeless or living [...] documented as of this encounter Care Teams Residential Sales Consultant Relationship Specialty Start Date End Date Brian Avalos MD PCP - General Family Medicine 01/12/24 Kayley Ward NP Nurse Practitioner Family Medicine 01/12/24 documented as of this encounter
--- OUTSIDE RECORDS SUMMARY | 2025-02-21 09:52 | XMS_ITS | Encounter Summary ---
Author Organization [facility] Address [address] [place] [address] Care Team Providers Care Hog Driver Name Role Phone Shaikh AUBREE Storm Primary Care Provider Brian Avalos MD Primary Care Provider [phone] Kayley Ward NP Unavailable [phone] Encounter Details Date Type Department Care Team (Late st Contact Info) Description 10/02/2023 Orders Only [facility] [address] [place] [phone] Shaikh Storm MD [address] [place] [address] Social History Tobacco Use Types Packs/Day Years [...] documented as of this encounter Care Teams Hog Driver Relationship Specialty Start Date End Date Shaikh Storm MD [address] [place] [address] PCP - General Internal Medicine 09/28/23 01/11/24 Brian Avalos MD [address] [place] [address] PCP - General Family Medicine 01/12/24 Kayley Ward NP [address] [place] [address] Nurse Practitioner Family Medicine 01/12/24 documented as of this encounter
--- OUTSIDE RECORDS SUMMARY | 2025-02-21 09:52 | XMS_ITS | Encounter Summary ---
Author Organization [facility] Address [address] [place] [address] Care Team Providers Care Sixth Grade Teacher Name Role Phone Shaikh AUBREE Malik Primary Care Provider [phone] Shaikh AUBREE Malik Primary Care Provider Brian Avalos MD Primary Care Provider [phone] Kayley Ward NP Unavailable [phone] Encounter Details Date Type Department Care Team [...] PERFUSION STRESS TEST WITH LEXISCAN Performing facility: [facility], [address] [place] [address], [address], [place] [address] [facility] Provider: Sylvester Grayson DO, [facility] PCP: Dr. Agus MALIK Supervising provider: Inge Dickerson MD INDICATION: HTN, Bilateral Carotid, Chest Pain HISTORY: Gender: M; Age: 77 y/o ; Height: HT 177.8 cm cm; Weight: WT 89.812 kg kg. CAD; High Cholesterol; Abnormal EKG; RBBB Previous PR; Family HX CAD; Chest Pain; COPD; PAD, CVA, Carotid Disease, CKD Currently smoking. Cardiac catheterization. PTCA 1990s RCA. COMPARISON: No comparison. ACCESSION NUMBER(S): [id number] ORDERING CLINICIAN: VANDANA GRAYSON TECHNIQUE: ONE DAY [...] Inge Dickerson 06/19/2023 11:20 AM Dictation workstation: [id number] Procedure Note Radiology, Radiologist, - 06/19/2023 Interpreted By: Inge Dickerson and Beal Gina STUDY: MYOCARDIAL PERFUSION STRESS TEST WITH LEXISCAN Performing facility: [facility], [address] [place] [address], [address], [address] Provider: Sylvester Grayson DO, [facility] PCP: Dr. Agus MALIK Supervising provider: Inge Dickerson MD INDICATION: HTN, Bilateral Carotid, Chest Pain HISTORY: Gender: M; Age: 77 y/o ; Height: HT 177.8 cm cm; Weight: WT 89.812 kg kg. CAD; High Cholesterol; Abnormal EKG; RBBB Previous PR; Family HX CAD; Chest Pain; COPD; PAD, CVA, Carotid Disease, CKD Currently smoking. Cardiac catheterization. PTCA 1990s RCA. COMPARISON: No comparison. ACCESSION NUMBER(S): [id number] ORDERING CLINICIAN: VANDANA GRAYSON TECHNIQUE: ONE DAY [...] Inge Dickerson 06/19/2023 11:20 AM Dictation workstation: [id number] us Generic External Data Provider IMG XR PROCEDURES Final Result documented in this encounter Visit Diagnoses Not on filedocumented in this encounter Care Teams Sixth Grade Teacher Relationship Specialty Start Date End Date Shaikh Malik MD PCP - General Internal Medicine 06/01/22 09/27/23 Shaikh Malik MD [address] [place] [address] PCP - General Internal Medicine 09/28/23 01/11/24 Brian Avalos MD [address] [place] [address] PCP - General Family Medicine 01/12/24 Kayley Ward NP [address] [place] [address] Nurse Practitioner Family Medicine 01/12/24 documented as of this encounter
--- OUTSIDE RECORDS SUMMARY | 2025-02-21 09:52 | XMS_ITS | Clinical Summary ---
Author Organization [facility] Address [id number] [place] [address] Care Team Providers Care Wheel Inspector Name Role Phone Unavailable Primary Care Provider [...] 01/30/2025 Medical Devices Not on file Insurance [facility] MEDIC[facility]
--- OUTSIDE RECORDS SUMMARY | 2025-02-21 09:52 | XMS_ITS | Encounter Summary ---
Author Organization [facility] Address [address] [place] [address] Phone Care Team Providers Care Senior Engineering Associate Name Role Phone Shaikh AUBREE Storm Primary Care Provider [phone] Encounter Details Date Type Department Care Team (Late st Contact Info) Description 08/10/2024 Scanned Document [facility] [address] [place] [address] Scanning, Generic Provider Social History Tobacco Use [...] Description 08/30/2025 10:00 AM EDT Office Visit [facility] [address] [facility] [address] [place] [phone] Chaim Grayson DO [address] [facility] [address] [place] [address] documented as of this encounter Visit Diagnoses Not on filedocumented in this encounter Additional Health Concerns Assessment Noted Time A fall risk assessment has been complete d for the patient 08/18/2023 11:52 AM EDT documented as of this encounter Care Teams Senior Engineering Associate Relationship Specialty Start Date End Date Shaikh Storm MD PCP - General Internal Medicine 06/04/23 documented as of this encounter
--- OUTSIDE RECORDS SUMMARY | 2025-02-21 09:52 | XMS_ITS | Encounter Summary ---
Author Organization [facility] Address [address] [facility] [place] [address] Care Team Providers Care Senior Controls Technician Name Role Phone Shaikh AUBREE Storm Primary Care Provider Shaikh AUBREE Storm Primary Care Provider [phone] Brian Avalos MD Primary Care Provider Kayley Ward NP Unavailable [phone] Encounter Details Date Type Department Care Team (Late st Contact Info) Description 08/03/2023 Orders Only [facility] [address] [place] [address] Shaikh Storm MD [address] [place] [address] Social History Tobacco Use Types Packs/Day Years [...] Unknown Shaikh Dotty MAK LAB MICROBIOLOGY - [facility] Final Result documented in this encounter Visit Diagnoses Not on filedocumented in this encounter Care Teams Senior Controls Technician Relationship Specialty Start Date End Date Shaikh Storm MD PCP - General Internal Medicine 06/01/22 09/27/23 Shaikh Storm MD [address] [place] [address] PCP - General Internal Medicine 09/28/23 01/11/24 Brian Avalos MD [address] [place] [address] PCP - General Family Medicine 01/12/24 Kayley Ward NP [address] [place] [address] Nurse Practitioner Family Medicine 01/12/24 documented as of this encounter
--- OUTSIDE RECORDS SUMMARY | 2025-02-21 09:52 | XMS_ITS | Encounter Summary ---
Author Organization [facility] Address [address] [place] [address] Care Team Providers Care Traffic Control Technician Name Role Phone Shaikh AUBREE Storm Primary Care Provider [phone] Shaikh AUBREE Storm Primary Care Provider Brian Avalos MD Primary Care Provider Kayley Ward NP Unavailable [phone] Encounter Details Date Type Department Care Team (Late st Contact Info) Description 05/21/2023 External Result Encounter [facility] External Department Unsolicited Shaikh Storm MD [address] [place] [address] Social History Tobacco Use Types Packs/Day Years [...] 11:42 AM EST) 05/21/2023 11:4 2 AM [facility] - 05/22/2023 11:09 AM [place] [id number] Electrocardiograph Report Signed Patient: Vasyl Broussard MR#: [id number] : 1945 Acct:[id number] Age/Sex: 77 / M ADM Date: 05/21/23 [...] undetermined Abnormal ECG Confirmed by DEANN MAK [facility] ([id number]) on 05/21/2023 5:04:18 PM Referred By: Electronically Signed By:BARBARA ZACARIAS MD [facility] Transcribed By: MUS Signed By Chaim Zacarias MD 05/21/23 1704 Procedure Note Gabrielle Zacarias MD - 05/22/2023 [place] [id number] Electrocardiograph Report Signed Patient: Vasyl Broussard RMR#: [id number] : 6Acct:[id number] Age/Sex: 77 / MADM Date: 05/21/23 Loc: [...] MUS Signed By Chaim Zacarias MD 05/21/23 8207 us Shaikh Dotty MAK ECG ORDERABLES Final Result [facility] [address] [place] [address], documented in this encounter Visit Diagnoses Not on filedocumented in this encounter Care Teams Traffic Control Technician Relationship Specialty Start Date End Date Shaikh Storm MD PCP - General Internal Medicine 06/01/22 09/27/23 Shaikh Storm MD [address] [place] [address] PCP - General Internal Medicine 09/28/23 01/11/24 Brian Avalos MD [address] [place] [address] PCP - General Family Medicine 01/12/24 Kayley Ward NP [address] [place] [address] Nurse Practitioner Family Medicine 01/12/24 documented as of this encounter
--- OUTSIDE RECORDS SUMMARY | 2025-02-21 09:52 | XMS_ITS ---
Author Organization [facility] Address [address] [place], [place] [address] Care Team Providers Care Glass Forming Engineer Name Role Phone Shaikh AUBREE Storm Primary Care Provider [phone] Ronaldo Alaniz MD Unavailable [phone] Constance Durand Unavailable Unavailable Active Problems Problem [...] you may be interested in: [email or web address] Wedding Designer Lead Pl Sql Developer Art Therapy Support Groups- Contact Wedding Designer for dates and times. Prepared by: Elizabeth Freire APRN.CORD SPLICER Delivered on: November 18, 2022 - This [...]
--- NOTE | 2025-02-21 09:53 | CT_ITS ---
The [address] [address] Patient Name: YESENIA MALIK MRN: [id number] date: 1945 Sex: M Assigned Patient Location: CT Current Patient Location: CT Accession/Order Number: [id number] Exam Date: 02/21/2025 10:02 Report Date: 02/21/2025 11:31 At the request of: LOCO FARIAS NP Procedure: CT lumbar spine wo con CT LUMBAR SPINE WITHOUT CONTRAST WITH 3-D RECONSTRUCTIONS COMPARISON: MRI 02/20/2023 CLINICAL DATA: Chronic low back pain radiating to the right buttock. Previous surgery. Spiral axial unenhanced images were obtained through the lumbar spine. Sagittal, coronal and 3-D volume rendered reconstructions were reviewed. This CT exam was performed using one or more following dose reduction techniques: Automated exposure control, adjustment of the mA and/or kV according to patient size, or use of iterative reconstruction technique. There is slight dextroscoliotic curvature. Structures are osteopenic. No acute compression fractures are identified. There is still slight anterolisthesis of L3 on L4 and L4 and L5. There is mild disc space narrowing at L3-4, L4-5 and at the lumbosacral junction. Mild endplate spurring and moderate bilateral facet hypertrophy are present. There is a suspected right hemilaminotomy defect at L4 and possibly on the left at L5. Degenerative changes are seen SI joints, right greater than left. At L2-3, there is minor disco-osteophytic bulging toward the neural foramen where mild inferior foraminal encroachment is noted. At L3-4, there is disco-osteophytic bulging, greater through the neural foramen. There is mild thickening of ligamentum flavum along with facet hypertrophy. There is still at least moderate thecal sac effacement and moderate to severe narrowing of the neural foramen, right worse than left. At L4-5, disco-osteophytic bulging is present. There is ligamentous as well as facet hypertrophy. There is mild to moderate thecal sac effacement. There is moderate to severe bilateral foraminal encroachment, greater on the left. At the lumbosacral junction, there is disco-osteophytic bulging, greater at the neural foramen. There is no significant thecal sac effacement. There is moderate left and severe right foraminal impingement. No paraspinal soft tissue abnormalities are present. There is no contributory finding at the lower imaged lungs. There is moderate atherosclerotic disease as well as an ectatic aorta with maximum AP diameter of 3.1 cm. There are small cortical hypodensities at both kidneys that may be cysts. There is an exophytic slightly hyperdense nodule at the inferior pole of the left kidney that might be a hemorrhagic cyst. Sigmoid diverticular disease is visualized. There is also suggestion of a sigmoid anastomosis. Urinary bladder is poorly distended and the wall appears thickened. No ascites is seen. CT/CT lumbar spine wo con IMPRESSION: SLIGHT DEXTROSCOLIOTIC CURVATURE, POSTOPERATIVE AND DISCOVERTEBRAL DEGENERATIVE CHANGES WITH ASSOCIATED STENOSIS, DISCUSSED ABOVE. Impression dictated by: Lorelei Waite M.D. 02/21/2025 11:31 AM Dictation Location: [place] [address] Electronically authenticated by: [id number] Y Date: 02/21/2025 11:31
--- OUTSIDE RECORDS SUMMARY | 2025-02-21 09:53 | XMS_ITS | Encounter Summary ---
Author Organization [facility] Address [address] [place] [phone] Phone Care Team Providers Care Biological Science Technician Fish Name Role Phone Shaikh AUBREE Storm Primary Care Provider [phone] Encounter Details Date Type Department Care Team (Late st Contact Info) Description 01/14/2023 Scanned Document [facility] [address] [place] [address] Conversion, Onbase Social History Tobacco Use Types [...] Description 08/30/2025 10:00 AM EDT Office Visit [place] [id number] [facility] [address] [place] [address] Chaim Grayson DO [address] [place] [address] documented as of this encounter Visit Diagnoses Not on filedocumented in this encounter Care Teams Biological Science Technician Fish Relationship Specialty Start Date End Date Shaikh Storm MD PCP - General Internal Medicine 06/04/23 documented as of this encounter
--- OUTSIDE RECORDS SUMMARY | 2025-02-21 09:53 | XMS_ITS | Encounter Summary ---
Author Organization [facility] Address [address] [place] [address] Phone Care Team Providers Care Analog Ic Design Architect Name Role Phone Shaikh AUBREE Storm Primary Care Provider [phone] Encounter Details Date Type Department Care Team (Late st Contact Info) Description 04/16/2023 Scanned Document [facility] [address] [place] [phone] Scanning, Generic Provider Social History Tobacco Use [...] Description 08/30/2025 10:00 AM EDT Office Visit [facility] [address] [facility] [address] [place] [address] Chaim Grayson DO [address] [facility] [address] [place], [place] [id number] Scheduled Orders Name Type Priority Associated Diagnoses Orde r Schedule ULTRASOUND - ONBASE SCAN Imaging Ordered: 04/16/2023 documented as of this encounter Visit Diagnoses Not on filedocumented in this encounter Care Teams Analog Ic Design Architect Relationship Specialty Start Date End Date Shaikh Storm MD PCP - General Internal Medicine 06/04/23 documented as of this encounter
--- OUTSIDE RECORDS SUMMARY | 2025-02-21 09:53 | XMS_ITS | Encounter Summary ---
Author Organization [facility] Address [address] [place] [address] Phone Care Team Providers Care Resident Intern Name Role Phone Shaikh AUBREE Storm Primary Care Provider [phone] Encounter Details Date Type Department Care Team (Late st Contact Info) Description 03/09/2023 Scanned Document [facility] [address] [place] [phone] Scanning, Generic Provider Social History Tobacco Use [...] Description 08/30/2025 10:00 AM EDT Office Visit [facility] [address] [facility] [address] [place] [address] Chaim Grayson DO [address] [facility] [address] [place], [place] [phone] documented as of this encounter Visit Diagnoses Not on filedocumented in this encounter Care Teams Resident Intern Relationship Specialty Start Date End Date Shaikh Storm MD PCP - General Internal Medicine 06/04/23 documented as of this encounter
--- OUTSIDE RECORDS SUMMARY | 2025-02-21 09:53 | XMS_ITS | Encounter Summary ---
Author Organization [facility] Address [address] [place] [address] Care Team Providers Care Trial Management Associate Name Role Phone Shaikh AUBREE Storm Primary Care Provider Ronaldo Alaniz MD Unavailable [phone] Constance Durand Unavailable Unavailable Source Comments In the event this information is protected by the Federal Confidentiality of Alcohol and Drug AbusePatient Records regulations: The Federal rules restrict any use of the information to criminally investigate or prosecute any alcohol or drug abuse patient.[facility] Encounter Details Date Type Department Care Team (Late st Contact Info) Description 11/29/2024 Patient Msg Radiation Oncology [address] [facility] [place] [address] Hyun Raza MD [address] [place] [address] Appointment Cancellation Request Social History Tobacco [...] is lower risk 4 11/18/2022 Data from: https://www.neighborhoodatlas.medicine.[facility]/. Last address used for calculation [address] [...] AM EST Office Visit Radiation Oncology [address] [facility] [place] [address] Hyun Raza MD [address] [place] [address] [place] [address] 3 month follow up documented as of this encounter Visit Diagnoses Not on filedocumented in this encounter Care Teams Trial Management Associate Relationship Specialty Start Date End Date Shaikh Storm MD [address] [place] [address] PCP - General Primary Care 12/06/21 Ronaldo Alaniz MD [address] [place] [address] Referring Urology 12/06/21 Constance Durand LSW Knit Goods Mender 03/04/22 documented as of this encounter
--- OUTSIDE RECORDS SUMMARY | 2025-02-21 09:53 | XMS_ITS | Encounter Summary ---
Author Organization [facility] Address [address] [place] [address] Care Team Providers Care Business Unit Leader Name Role Phone Shaikh AUBREE Storm Primary Care Provider [phone] Ronaldo Alaniz MD Unavailable [phone] Constance Durand Unavailable Unavailable Source Comments In the event this information is protected by the Federal Confidentiality of Alcohol and Drug AbusePatient Records regulations: The Federal rules restrict any use of the information to criminally investigate or prosecute any alcohol or drug abuse patient.[facility] Encounter Details Date Type Department Care Team (Late st Contact Info) Description 11/29/2024 Patient Msg Radiation Oncology [address] [place] [address] Hyun Raza MD [address] [facility] [place] [address] Appointment Cancellation Request Social History Tobacco [...] is lower risk 4 11/18/2022 Data from: https://www.neighborhoodatlas.medicine.[facility]/. Last address used for calculation [...] EST Office Visit Radiation Oncology [address] [facility] [place] [address] Hyun Raza MD [address] [place] [address] [place] [address] 3 month follow up documented as of this encounter Visit Diagnoses Not on filedocumented in this encounter Care Teams Business Unit Leader Relationship Specialty Start Date End Date Shaikh Storm MD [address] [place] [address] PCP - General Primary Care 12/06/21 Ronaldo Alaniz MD [address] [place] [address] Referring Urology 12/06/21 Constance Durand LSW Synthetic Cloth Binding Cutter 03/04/22 documented as of this encounter
--- OUTSIDE RECORDS SUMMARY | 2025-02-21 09:53 | XMS_ITS | Encounter Summary ---
Author Organization [facility] Address [address] [place] [address] Phone Care Team Providers Care Auto Haulaway Driver Name Role Phone Shaikh AUBREE Storm Primary Care Provider [phone] Encounter Details Date Type Department Care Team (Late st Contact Info) Description 05/27/2023 Scanned Document [facility] [address] [place] [phone] Scanning, Generic Provider Social History Tobacco Use [...] Description 08/30/2025 10:00 AM EDT Office Visit [facility] [address] [facility] [address] [place] [address] Chaim Grayson DO [address] [facility] [address] [place], [place] [phone] documented as of this encounter Visit Diagnoses Not on filedocumented in this encounter Care Teams Auto Haulaway Driver Relationship Specialty Start Date End Date Shaikh Storm MD PCP - General Internal Medicine 06/04/23 documented as of this encounter
--- OUTSIDE RECORDS SUMMARY | 2025-02-21 09:53 | XMS_ITS | Encounter Summary ---
Author Organization [facility] Address [address] [place] [address] Care Team Providers Care Rotating Equipment Engineer Name Role Phone Brian Avalos MD Primary Care Provider [phone] Kayley Ward NECK BAND MAKER Unavailable [phone] Encounter Details Date Type Department Care Team (Late st Contact Info) Description 02/13/2025 Clinisync Result Encounter [facility] External [...] How often do you attend latter-day or sikhism serv ices? Patient declined 01/20/2024 [...] any time in the past 12 m [facility], were you homeless or living in a jail (including now)? No 01/20/2024 Sex and Gender [...] WITH MICROSCOPIC Routine 02/13/2025 12:30 PM EDT TBH VITAMIN D 25 [place] Routine 02/13/2025 1 0:59 AM EDT METRO IRON AND TIBC Routine 02/13/2025 1 0:59 AM EDT [facility] PTH, INTRAOPERATIVE Routine 02/13/2025 10:59 AM EDT [facility] CBC WITH PLATELET NO DIFFERENTIAL Routine 02/13/2025 10:59 AM EDT [facility] FERRITIN Routine 02/13/2025 10:59 AM EDT ALL URIC ACID Routine 02/13/2025 10:59 AM EDT ALL RENAL FUNCTION PANEL Routine 02/13/2025 10:59 AM EDT ALL MAGNESIUM Routine 02/13/2025 10:59 AM EDT documented in this encounter Results * (ABNORMAL) TB[facility] URINE T PROTEIN CREAT RATIO (02/13/2025 12:30 PM EDT) TOTAL PROTEIN URINE RANDOM 147.8(H) <=11.9 mg/dL TBH CREATININE URINE RANDOM 214.61 20.00 - 300.00 mg/dL TBH PROTEIN CREATININE RATIO URINE 0.69 TBH 02/13/2025 12:3 0 PM EDT 02/13/2025 12:45 PM EDT Narrative CLINISYNC - 02/13/2025 2:58 PM EDT Generic External Data Provider CLINISYNC F inal Result Performing Organization Address [facility] Co de Phone Number CLINMASOODNC TBH * (ABNORMAL) [facility] URINALYSIS, WITH MICROSCOPIC (02/13/2025 [...] 1:32 PM EDT Generic External Data Provider CLINISYNC F inal Result Performing Organization Address [facility]/ZIP Co de Phone Number CLINISYNC TB[facility] * (ABNORMAL) HP PTH, INTRAOPERATIVE (02/13/2025 10:59 AM EDT) PTH, INTACT 81(A) 15 - 65 pg/mL TBH Comment: Performed at: [address] [id number] Strip Polisher: Rojelio Nelson PhD, Phone: [phone] 02/13/2025 10:5 9 AM EDT 02/13/2025 11:03 AM EDT Narrative CLINISYNC - 02/14/2025 10:09 AM EDT Generic External Data Provider CLINISYNC F inal Result Performing Organization Address [facility] Co de Phone Number CLINISYNC TB[facility] * TBH VITAMIN D 25 [place] (02/13/2025 10:59 AM EDT) VITAMIN D 43.3 ng/mL TBH Comment: <20 ng/mL Vit D deficient 20-<30 ng/mL Vit D insufficient 30-100 ng/mL Vit D sufficient >100 ng/mL Potential Toxicity 02/13/2025 10:5 9 AM EDT 02/13/2025 11:03 AM EDT Narrative CLINISYNC - 02/13/2025 1:10 PM EDT Generic External Data Provider CLINISYNC F inal Result Performing Organization Address [facility] de Phone Number CLINISYNC TB * [facility] FERRITIN (02/13/2025 10:59 AM EDT) FERRITIN 45.0 26.0 - 388.0 ng/mL TBH 02/13/2025 10:5 9 AM EDT 02/13/2025 11:03 AM EDT Narrative CLINISYNC - 02/13/2025 1:10 PM EDT Generic External Data Provider CLINISYNC F inal Result Performing Organization Address [facility] de Phone Number CLINISYNC TB * METRO IRON AND TIBC (02/13/2025 10:59 AM EDT) TBH IRON 80.0 65.0 - 175.0 ug/dL TBH TBH TOTAL IRON BINDING CAPACITY 354.0 250.0 - 450.0 ug/dL TBH TBH PERCENT IRON SATURATION 22.6 % TBH 02/13/2025 10:5 9 AM EDT 02/13/2025 11:03 AM EDT Narrative CLINISYNC - 02/13/2025 12:10 PM EDT Generic External Data Provider CLINISYNC F inal Result Performing Organization Address [facility]/ZIP Co de Phone Number CLINISYNC [facility] * ALL MAGNESIUM (02/13/2025 10:59 AM EDT) MAGNESIUM 2.0 1.8 - 2.4 mg/dL TB 02/13/2025 10:5 9 AM EDT 02/13/2025 11:03 AM EDT Narrative CLINISYNC - 02/13/2025 11:39 AM EDT Generic External Data Provider CLINISYNC F inal Result Performing Organization Address [facility] de Phone Number CLINISYNC [facility] * ALL URIC ACID (02/13/2025 10:59 AM EDT) URIC ACID 6.6 3.5 - 7.2 mg/dL TB 02/13/2025 10:5 9 AM EDT 02/13/2025 11:03 AM EDT Narrative CLINISYNC - 02/13/2025 11:39 AM EDT Generic External Data Provider CLINISYNC F inal Result Performing Organization Address [facility] Co de Phone Number CLINISYNC [facility] * (ABNORMAL) ALL RENAL FUNCTION PANEL (02/13/2025 [...] 0.70 - 1.30 mg/dL TBH TBH EGFR-AF [place] 41(L) >=60 mL/min/1.7 3m 2 TBH TBH EGFR-NON AF [place] 34(L) >=60 mL/min/1.7 3m 2 TBH BUN CREATININE RATIO 14.5 TBH CALCIUM 9.2 8.5 - 10.1 mg/dL TBH PHOSPHORUS 3.9 2.6 - 4.7 mg/dL TBH ALBUMIN LEVEL 3.8 3.4 - 5.0 g/dL TBH 02/13/2025 10:5 9 AM EDT 02/13/2025 11:03 AM EDT Narrative CLINISYNC - 02/13/2025 11:39 AM EDT Generic External Data Provider DOLORES F lisa Result * (ABNORMAL) [facility] CBC WITH PLATELET NO DIFFERENTIAL (02/13/2025 10:59 AM EDT) TB WBC 8.0 4.0 - 11.0 10 3/uL TBH TBH RBC 4.18(L) 4.70 - 6.10 10 6/uL TBH TBH HGB 12.9(L) 14.0 - 18.0 g/dL TBH TBH HCT 39.3(L) 42.0 - 54.0 % TBH TBH MCV 94.0 80.0 - 94.0 fL TBH TB MCH 30.9 25.9 - 34.0 pg TBH TB MCHC 32.8 29.9 - 35.2 g/dL TBH TBH RDW 13.6 11.0 - 15.0 % TBH TBH PLT 271 150 - 450 10 3/uL TBH TBH MPV 10.3 9.5 - 13.5 fL TB 02/13/2025 10:5 9 AM EDT 02/13/2025 11:03 AM EDT Narrative CLINISYNC - 02/13/2025 11:10 AM EDT Generic External Data Provider CLINISYNC F inal Result CLINISYNC TBH documented in this encounter Visit Diagnoses Not on filedocumented in this encounter Additional Health Concerns Assessment Noted Time PHQ-9 Depression Total Score: 5 12/08/19 24 11:00 AM EDT documented as of this encounter Care Teams Rotating Equipment Engineer Relationship Specialty Start Date End Date Brian Avalos MD PCP - General Family Medicine 01/12/24 Kayley Ward NP Nurse Practitioner Family Medicine 01/12/24 documented as of this encounter
--- OUTSIDE RECORDS SUMMARY | 2025-02-21 09:53 | XMS_ITS | Encounter Summary ---
Author Organization [facility] Address [address] [place] [address] Phone Care Team Providers Care Channel Development Director Name Role Phone Shaikh AUBREE Storm Primary Care Provider [phone] Encounter Details Date Type Department Care Team (Late st Contact Info) Description 03/23/2023 Scanned Document [facility] [address] [place] [phone] Scanning, Generic Provider Social History Tobacco Use [...] Description 08/30/2025 10:00 AM EDT Office Visit [facility] [address] [facility] [address] [place] [address] Chaim Grayson DO [address] [facility] [address] [place], [place] [phone] documented as of this encounter Visit Diagnoses Not on filedocumented in this encounter Care Teams Channel Development Director Relationship Specialty Start Date End Date Shaikh Storm MD PCP - General Internal Medicine 06/04/23 documented as of this encounter
--- OUTSIDE RECORDS SUMMARY | 2025-02-21 09:53 | XMS_ITS | Encounter Summary ---
Author Organization [facility] Address [address] [place] [address] Phone Care Team Providers Care Rn Pain Management Name Role Phone Shaikh AUBREE Storm Primary Care Provider [phone] Encounter Details Date Type Department Care Team (Late st Contact Info) Description 05/21/2023 Scanned Document [facility] [address] [place] [phone] Scanning, Generic Provider Social History Tobacco Use [...] 08/30/2025 10:00 AM EDT Office Visit [facility] [address] [facility] [address] [place] [address] Chaim Grayson DO [address] [facility] [address] [place], [place] [phone] documented as of this encounter Visit Diagnoses Not on filedocumented in this encounter Care Teams Rn Pain Management Relationship Specialty Start Date End Date Shaikh Storm MD PCP - General Internal Medicine 06/04/23 documented as of this encounter
--- OUTSIDE RECORDS SUMMARY | 2025-02-21 09:53 | XMS_ITS | Encounter Summary ---
Author Organization [facility] Address [address] [place] [address] Care Team Providers Care Brim Pouncing Machine Operator Name Role Phone Shaikh AUBREE Storm Primary Care Provider [phone] Ronaldo Alaniz MD Unavailable [phone] Constance Durand Unavailable Unavailable Source Comments In the event this information is protected by the Federal Confidentiality of Alcohol and Drug AbusePatient Records regulations: The Federal rules restrict any use of the information to criminally investigate or prosecute any alcohol or drug abuse patient.[facility] Encounter Details Date Type Department Care Team (Late st Contact Info) Description 11/29/2024 Patient Msg Radiation Oncology [address] [facility] [place] [address] Hyun Raza MD [address] [place] [address] Appointment Cancellation Request Social History Tobacco [...] is lower risk 4 11/18/2022 Data from: https://www.neighborhoodatlas.medicine.[facility]/. Last address used for calculation [...] AM EST Office Visit Radiation Oncology [address] [facility] [place] [address] Hyun Raza MD [address] [place] [address] [place] [address] 3 month follow up documented as of this encounter Visit Diagnoses Not on filedocumented in this encounter Care Teams Brim Pouncing Machine Operator Relationship Specialty Start Date End Date Shaikh Storm MD [address] [place] [address] PCP - General Primary Care 12/06/21 Ronaldo Alaniz MD [address] [place] [address] Referring Urology 12/06/21 Constance Durand LSW Corner Former 03/04/22 documented as of this encounter
--- OUTSIDE RECORDS SUMMARY | 2025-02-21 09:53 | XMS_ITS | Clinical Summary ---
Author Organization [facility] Address [address] [place] [address] Phone Care Team Providers Care Glass Furnace Operator Name Role Phone Shaikh AUBREE Storm Primary Care Provider [phone] Allergies Active Allergy Reactions Criticality Noted Date Comments Ezetimibe GI intolerance,Nausea/vo miting High 04/27/2023 Aaxsaml-Fxw-Qbz Reductase Inhibitors Other Medium 03/30/2023 Muscle/Joint Pain Medications aspirin 81 mg EC tablet Take 1 tablet (81 mg) by mouth once daily. Active ergocalciferol (Vitamin D-2) 1.25 MG (31187 UT) capsule Take 1 capsule (1,250 mcg) by mouth 1 (one) time per week. 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 with vascular Denies claudication History of [place] (myocardial infarction) 06/04/2023 CVA (cerebral vascular accident) [...] Description 08/30/2025 10:00 AM EDT Office Visit [facility] [address] [facility] [address] [place] [address] Chaim Grayson DO [address] [facility] [address] [place] [address] Health Maintenance Due Date Last Done Comments [...] patient's age to complete this topic Insurance [employer] Care Teams Glass Furnace Operator Relationship Specialty Start Date End Date Shaikh Storm MD PCP - General Internal Medicine 06/04/23
--- OUTSIDE RECORDS SUMMARY | 2025-02-21 09:55 | XMS_ITS | CCD ---
Author Organization [facility] Care Team Providers Care Supervisor [place] Name Role Phone Sterling Vizcaino Primary Care Physician Theo Thakkar Unavailable Dotty MAK [facility] Primary Care Provider Barbara Johnston MD Unavailable [phone] DOTTY [facility] Primary Care Physician Dotty MAK [facility] Primary Care Provider Barbara Johnston MD Unavailable Constance Beverly Unavailable Unavailable Dotty MAK [facility] Primary Care Provider Barbara Johnston MD Unavailable Constance Beverly Unavailable Unavailable MD Dotty [facility] Primary Care Provider MD Zeinab Justice Attending Provider MD Lyla Nazario Attending Provider LAKSHMIPATHY ., NARENDRANATH Attending Kiera vailable LAKSHMIPATHY ., NARENDRANATH Admitting Kiera vailable HALKER ., HUBERT Consulting Unavailable [facility] Primary Care Unavailable OLIVA ., DR HOSEA Davison Admitting Unavailable HOBBS .BERNIE Consulting Unavailable OLIVA ., DR HOSEA Davison Attending Unavailable [facility] Primary Care Unavailable OLIVA ., DR HOSEA Davison Admitting Unavailable OLIVA ., DR HOSEA Davison Consulting Unavailable [facility] Primary Care Unavailable KRISTEN ., DR HOSEA Davison Attending Unavailable [facility] Consulting Unavailable HOBBS ., BERNIE Consulting Unavailable OLIVA ., DR HOSEA Davison Attending Unavailable OLIVA ., DR HOSEA Davison Admitting [facility]available [facility] Primary Care Unavailable OLIVA ., DR HOSEA Davison Consulting Unavailable OLIVA ., DR HOSEA Davison Admitting Unavailable OLIVA ., DR HOSEA Davison Consulting Unavailable [facility] Primary Care Unavailable OLIVA ., DR HOSEA Davison Attending Unavailable [facility], [facility] H Consulting Unavailable JONATHAN MARTIN Consulting Unavailable HOBBS ., BERNIE Consulting Unavailable OLIVA ., DR HOSEA Davison Admitting Unavailable [facility] Primary Care Unavailable OLIVA ., DR HOSEA Davison Attending Unavailable HOBBS ., BERNIE Consulting Unavailable OLIVA ., DR HOSEA Davison Attending Unavailable OLIVA ., DR HOSEA Davison Admitting Unavailable [facility] Primary Care Unavailable OLIVA ., DR HOSEA Davison Attending Unavailable OILVA ., DR HOSEA Davison Admitting Unavailable [facility] Primary Care Unavailable OLIVA ., DR HOSEA Davison Consulting Unavailable HOBBS ., BERNIE Consulting Unavailable OLIVA ., DR HOSEA Dvaison Attending Unavailable OLIVA ., DR HOSEA Davison Admitting Unavailable [facility] Primary Care Unavailable OLIVA ., DR HOSEA Davison Admitting Unavailable [facility] Primary Care Unavailable OLIVA ., DR HOSEA Davison Attending Unavailable OLIVA ., DR HOSEA Davison Admitting Unavailable OLIVA ., DR HOSEA Davison Consulting Unavailable [facility] Primary Care Unavailable OLIVA ., DR HOSEA Davison Attending Unavailable [facility] Primary Care Unavailable JOHNSTON ., DR JIMENEZ Consulting Unavailable JOHNSTON ., DR JIMENEZ Attending Unavailable JOHNSTON ., DR JIMENEZ Admitting Unavailable VIVIAN, THEO Consulting Unavailable VIVIANTHEO Attending Unavailable VIVIAN, THEO Admitting Unavailable [facility] Primary Care Unavailable RUT KIRBY Attending Unavailable RUT KIRBY Admitting Unavailable [facility] H Primary Care Unavailable MD Justice Storm Primary Care Provider MD Justice Storm Other Provider ABE Ferrera Attending Provider [phone] Anesthesiologist, Temporary Attending Provider U prabhu Tan, Bonnie Unavailable MD Lyla Nazario Attending Provider MD Jose Martin Mchugh Attending Provider MD Theo Thakkar Attending Provider Jose Martin Mchugh Unavailable MD Dotty [facility] Primary Care Provider Anesthesiologist, Temporary Attending Provider U MD Lyla Carvalho Attending Provider MD Jose Martin Mchugh Attending Provider MD Theo Thakkar Attending Provider MD Dotty [facility] Primary Care Provider MD Justice Storm Attending Provider Dotty MAK [facility] Primary Care Provider JOSE NICHOLS [facility] Primary Care Unavailable KODI REYNOLDS Attending Unavailable Dotty MAK [facility] Primary Care Provider CHAIM GRAYSON Referring [facility] Primary Care Unavailable CHAIM GRAYSON Referring [facility] Primary Care Unavailable CHAIM GRAYSON Referring Unavailable [facility] Primary Care Unavailable Nicolette MAK, Adalid Powers Attending Unavailable Yariel Storm MDikh Primary Care Provider MD Yariel Stormikh Primary Care Provider MD Justice Storm Attending Provider MD Barbara Johnston Referring Provider Yariel Storm MDikh Primary Care Provider NO FAMILY, PHYSICIAN Primary Care Provider Unava MD Theo Dill Attending Provider [phone] MS. NASIR WARD Primary Care P hysician Barbara JOHNSTON Attending Unavailable [facility] [place] Unavail[facility] e BRITNI, CLAIRE E Admitting Unavailable BRITNI, CLAIRE E Attending Unavailable BRITNI, CLAIRE E Admitting Unavailable BRITNI, CLAIRE E Attending Unavailable Galea, Karime Stone Admitting Unavailable Galea, Karime Stone Attending Unavailable [facility] [place] Unavailabl e Barbara JOHNSTON Attending Unavailable BRITNI, CLAIRE E Attending Unavailable Galea, Karime Stone Attending Unavailable [facility] [place] Unavailabl e Bailey MAK, Brian Primary Care Provider Ed INFORMATICS ANALYST, Nasir Unavailable Brian Avalos MD Primary Care Provider Farooq Quezada PA-C Emergency Provider [phone] NASIR WARD Attending Unavailabl SHAIKH Schmidt Attending Unavailable SHAIKH STORM Attending Unavailable NASIR WARD Attending Unavailabl e NASIR WARD Attending Unavailabl AMBROSIO Galvan Primary Care Physician [phone] Brian Avalos MD Primary Care Provider [phone] Farooq Quezada PA-C Emergency Provider Theo Thakkar MD Attending Provider Barbara JOHNSTON Attending Unavailable [facility] [place] Unavailabl e BRITNI, CLAIRE E Attending Unavailable [facility] [place] Unavailabl e BRITNI, CLAIRE E Admitting Unavailable BRITNI, CLAIRE E Attending Unavailable MADERA, VASILE Attending Unavailable MADERA, VASILE Referring Unavailable MADERA, VASILE Referring Unavailable MADERA, VASILE Referring Unavailable MADERA, VASILE Referring Unavailable MADERA, VASILE Referring Unavailable OVITT, JOELLEN Attending Unavailable MADERA, VASILE Admitting Unavailable MADERA, VASILE Attending Unavailable OVITT, JOELLEN Attending Unavailable MADERA, VASILE Attending Unavailable OVITT, JOELLEN Attending Unavailable Orfabienne Cherie X Attending Unavailable Stewart Cherie X Admitting Unavailable Barbara JOHNSTON Attending Unavailable Shaikh Storm MD Primary Care Provider CLAIRE JAMES Attending Unavailable CLAIRE JAMES Admitting Unavailable JOSE HECTOR Attending Unavailable CHAIM GRAYSON Referring [facility]available [facility] Primary Care Unavailable Ed INFORMATICS ANALYST, Nasir Unavailable HUANG JAMES Attending Unavailab Barbara Lynn MD Unavailable Hyun NAZARIO Attending Unavailable DOTTY CARREON Primary Care Unavailable Hyun NAZARIO Referring Unavailable DOTTY [facility] Primary Care Unavailable Farooq Quezada Admitting Unavailable Brian Avalos Primary Care Unavailable Farooq Quezada Attending Unavailable Brian Avalos Primary Care Unavailable Theo Thakkar Admitting Unavailable Theo Thakkar Attending Unavailable NO FAMILY, PHYSICIAN Primary Care Unavailable Theo Thakkar Attending Unavailable Theo Thakkar Admitting Unavailable Brian Avalos MD Primary Care Provider [phone] Ed INFORMATICS ANALYST, Nasir Unavailable [phone] Brian Avalos MD Primary Care Provider [phone] Theo Thakkar MD Attending Provider Allergies Allergy Classification Reported Allergen(s) Allergy Type Date of Onset Reaction(s) Facility (20 sources) ezetimibe; Translations: [EZETIMIBE] Drug Allergy 3 GI intolerance, Nausea/vomiting [facility] (8 sources) HMG-CoA reductase inhibitor; Translations: [[id number] A REDUCTASE INHIBITORS] Drug Intolerance 3 Other [facility] Work Phone: (14 sources) HMG-CoA reductase inhibitor Drug Intolerance 3 Other [facility] Healthcare Medications Current Medications Medication Drug Class(es) Dates Sig (Normalized) Sig (Original) acetaminophen 325 mg oral tablet (13 sources) Start: 11-18-2023 take 2 tablets by [...] Daily as needed February 29, 2024 12:00am Complies with drug therapy Start: 01-14-2024 End: 07-13-2024 HYDROcodone-acetaminophen (N orco) [...] tablet by leslie th every six hours Marion 5/325 Tab Oral, q6hr, Refill(s) 0 Start Date: 03/22/21 Status: Ordered Repeat number: 1 Start: 03-22-2021 Marion 5/325 Ta b Oral, q6hr, Refill(s) 0 Start Date: 03/22/21 Status: Ordered Start: 03-22-2021 Marion 5/325 Ta b Oral, q6hr, Refill(s) 0 Start Date: 03/22/21 Status: Ordered take 1 tablet by leslie th every six hours as needed Marion 5-325 MG 1 tablet as needed Orally every 6 hrs Active Comment on above: TAKE 1 TABLET BY LESLIE TH TWICE DAILY NEEDED FOR LUMBAR RADICULOPATHY TAKE 1 TABLET BY LESLIE TH THREE TIMES DAILY NEEDED MUST LAST 30 DAYS amLODIPine 10 mg oral tablet (20 sources) Dihydropyridine Calcium Channel Jimy Start: 1 take 1 mg by mouth once daily amLODIPine 5 mg Tab mg tab(s), Oral, Daily, Refills(s) 0 Start Date: 03/22/21 Status: Ordered Start: 03-22-2021 End: 03-09-2025 take 1 tablet by mouth once daily Amlodipine 10 mg tablet Active 10 MG PO Daily November 22, 2021 12:00am Complies with drug therapy Comment on above: amlodipine 10 mg tab [...] MG PO Daily February 06, 2023 12:00am Complies with drug therapy Start: 03-22-2021 take 1 mg by mouth [...] day(s), # 14 cap(s), Refills(s) 0, Pharmacy: [facility]/pharmacy #[id number], 178, cm, 08/08/24 12:38:00 [...] take 1 tablet by mouth once daily Clopidogrel 75 mg tablet Active 75 MG PO Daily 90 180 April 11, 2024 3:46pm Complies with drug therapy Clopidogrel Bisu lfate Active Cranberry preparation (4 [...] day(s), # 5 tab(s), Refills(s) 0, Pharmacy: [id number], 178, cm, 04/21/23 8:36:00 EST, Height/Length [...] Comment on above: [facility]. Take 1 tablet by mouth one hour prior to procedure. doxycycline hyclate 100 mg oral capsule (7 sources) Tetracycline-class Drug Start: 04-07-2024 End: 04-14-2024 take 1 capsule by mouth twice daily doxycycline hyclate 100 mg Cap 100 mg = 1 cap(s), Oral, BID, X 7 day(s), # 14 cap(s), Refills(s) 0, Pharmacy: [id number], 178, cm, 09/18/23 10:55:00 EDT, Height/Length Dosing, 92, kg, 09/18/23 10:55:00 EDT, Weight Dosing Start Date: 04/07/24 Stop Date: 04/14/24 Status: Ordered Start: 02-29-2024 End: 08-15-2024 take 1 tablet by mouth twice daily Doxycycline Hyclate 100 mg tablet Discontinued 100 MG PO Twice daily February 29, 2024 12:00am August 15, 2024 10:38am ergocalciferol 1.25 mg oral capsule (20 sources) Provitamin D2 Compound Start: 03-11-2024 End: 10-03-2024 take 1 capsule by mouth every week Ergocalciferol (Vitamin D2) 1,250 mcg (50,000 unit) capsule Active 0 .ROUTE .COMPLEX October 03, 2024 2:51pm TAKE 1 CAPSULE BY MOUTH ONCE A WEEK Complies with drug therapy Start: 03-11-2024 take 1 capsule by mo [facility] every week Ergocalciferol (Vitamin D2) 1,250 mcg (50,000 unit) capsule Active 0 .ROUTE .COMPLEX March 11, 2024 10:14am TAKE 1 CAPSULE BY MOUTH ONCE A WEEK Start: 03-11-2024 take 1 capsule by mo [facility] every week Ergocalciferol (Vitamin D2) 1,250 mcg (50,000 unit) capsule Active 0 .ROUTE .COMPLEX March 11, 2024 9:14am TAKE 1 CAPSULE BY MOUTH ONCE A WEEK Start: 09-15-2023 End: 03-11-2024 Ergocalciferol (Vitamin D2) 1,250 mcg (50,000 unit) capsule Discontinued 34155 UNIT PO Once a week September 15, 2023 5:43pm March 11, 2024 10:15am Start: 09-15-2023 End: 09-15-2023 take 07183 [IU] by mouth every week Ergocalciferol (Vitamin D2) Active 58509 UNIT PO Once a week September 15, 2023 5:43pm Start: 03-10-2023 take 1 capsule by mo uth every week Ergocalciferol 1.25 MG (45034 UT) 1 capsule Orally Q week for 90 days Mar, Active take 1 capsule by mo uth every week ergocalciferol (Vitamin D-2) 1.25 MG (68608 UT) capsule Take 1 capsule (1,250 mcg) by mouth 1 (one) time per week. Active ergocalciferol, vitamin D2, (VITAMIN D2 ORAL) (4 sources) ergocalciferol, vitamin D2, (VITAMIN D2 ORAL) Take by mouth. Active ergocalciferol, vitamin D2, (VITAMIN D2 ORAL) Take by mouth. 0 Active Comment on above: Take by mouth. ezetimibe 10 mg oral tablet (2 sources) Dietary Cholesterol Absorption Inhibitor Start: take 1 mg by mouth once daily ezetimibe 10 mg Tab mg tab(s), Oral, Daily, Refills(s) 0 Start Date: 03/25/21 Status: Ordered gabapentin 100 mg oral capsule (20 sources) Anti-epileptic Agent Start: End: take 1 capsule by mouth twice daily [...] Status: Ordered nitroglycerin 0.4 mg sublingual tablet (11 sources) Nitrate Vasodilator Start: 09-18-19 nitroglycerin 0.4 mg sublingual Tab Refills(s) 0 Start Date: 09/18/23 Status: Ordered Repeat number: 1 Start: 08-18-2023 End: 08-17-2024 Nitroglycerin 0.4 mg tablet, sublingual Active 0.4 MG SUBLINGUAL Q5M August 15, 2024 12:00am do not exceed 3 doses per episode Complies with drug therapy Oxybutinin XL 5mg (4 sources) Oxybutinin XL 5m g ONCE A DAY Active Oxybutinin XL 5m g Active oxybutynin chloride 5 mg oral tablet (17 sources) Cholinergic Muscarinic Antagonist Start: 02-11-2023 take 2 tablets by mouth at bedtime oxybutynin 5 mg Tab 10 mg = 2 tab(s), Oral, Bedtime, # 60 tab(s), Refills(s) 3, Pharmacy: [id number], 178, cm, 02/11/23 14:50:00 EDT, Height/Length [...] Bedtime, # 30 tab(s), Refills(s) 2, Pharmacy: [id number], 178, cm, 12/03/22 15:00:00 EDT, Height/Length Dosing, 93, kg, 12/03/22 15:00:00 EDT, Weight Dosing Start Date: 12/03/22 Status: Ordered pravastatin sodium 40 mg oral tablet (20 sources) HMG-CoA Reductase Inhibitor Start: 03-23-2023 End: 08-17-2024 take 1 tablet by mouth once daily in the evening Pravastatin 40 mg Tablet Active 40 MG PO Every evening 90 180 March 23, 2023 12:00am Complies with drug therapy Start: 03-22-2021 End: 03-23-2023 take 1 tablet by mouth once daily Pravastatin 10 mg tablet Discontinued 10 MG PO Daily November 22, 2021 12:00am March 23, 2023 10:03am Comment on above: pravastatin 10 mg ta [...] hours., # 30 tab(s), Refills(s) 1, Pharmacy: [id number], 178, cm, 07/07/23 9:25:00 EST, Height/Length Dosing, 92, kg, 07/07/23 9:25:00 EST, Weight Dosing Start Date: 07/07/23 Status: Ordered valsartan 80 mg oral tablet (20 sources) Angiotensin 2 Receptor Jimy Start: 06-04-19 End: 08-18-19 take 1 tablet by mouth once daily Valsartan 80 mg tablet Active 80 MG PO Daily October 15, 2023 12:00am Complies with drug therapy Varenicline (Chantix Starting Month Box) 0.5 mg [...] 1 Start: 04-21-2023 take 1 capsule by [facility] every week Vitamin D2 50,000 intl [...] c Acid-ergic Agonist Start: 11-04-2021 End: 01-18-2025 take 1 tablet by mouth once daily at bedtime Baclofen 10 mg tablet Discontinued 10 MG PO Daily at bedtime November 22, 2021 12:00am August 15, 2024 10:38am Start: 11-04-2021 End: 07-13-2024 take 1 mg by mouth three times daily baclofen 10 mg Tab mg tab(s), Oral, TID, Refills(s) 0 Start Date: 11/04/21 Status: Ordered Comment on above: baclofen 10 mg table t lisinopril 20 mg oral tablet (20 sources) Angiotensin Converting Enzyme Inhibitor Start: 03-25-2021 End: 12-15-2023 lisinopril (ZESTRIL, PRINIVIL) 20 mg tablet q 24 HR. 03/25/2021 12/15/2023 Discontinued (Discontinued by another Health Care Provider) Start: 03-25-2021 End: 10-15-2023 take 1 tablet by mouth once daily Lisinopril 20 mg tablet Discontinued 20 MG PO Daily November 22, 2021 12:00am October 15, 2023 9:17am Comment on above: q 24 HR. ofloxacin 3 mg/ml ophthalmic solution (4 sources) Quinolone Antimicrobial Start: End: take 0.3 drop(s) into the eye(s) every six hours Ofloxacin 0.3 % drops Discontinued 2 DROPS EYE-LEFT Every 6 hours July 14, 2024 1:00am August 15, 2024 10:38am 2 drps Left Eye; Start: 07-14-2024 End: 08-15-2024 take 0.3 drop(s) into the eye(s) every six hours Ofloxacin 0.3 % drops Discontinued 2 DROPS EYE-LEFT Every 6 hours July 14, 2024 1:00am August 15, 2024 10:38am 2 drps Left Eye; omeprazole 40 mg delayed release oral capsule (15 sources) Proton Pump Inhibitor Start: 09-28-2023 End: 04-21-2024 take 1 capsule by mouth once daily Omeprazole 40 mg capsule,delayed release(DR/EC) Discontinued 40 MG PO Daily October 15, 2023 12:00am February 29, 2024 11:41am oxyCODONE hydrochloride 5 mg oral tablet (9 sources) Opioid Agonist Start: 12-02-2023 End: 01-18-2025 take 1 tablet by mouth every six [...] twice daily. Take 1 capsule by mo ut once daily. At bedtime. Take 50 mg [...] Refills(s) 0 Start Date: 03/22/21 Status: Ordered varenicline 1 mg oral tablet (11 sources) Partial Cholinergic Nicotinic Agonist Start: 10-22-2023 End: 08-15-2024 take 1 tablet by mouth once Varenicline Tartrate (Chantix Starting Month Box) 0.5 mg (11)- 1 mg (42) tablets,dose pack Discontinued 0 PO per package directions February 29, 2024 12:00am August 15, 2024 10:38am PO PER PKG DIR Varenicline Tartrate (Chantix Starting Month Box) 0.5 [...] 06-04-19 24 03-25-2021 Episodic Acute cerebrovascular disease (19 sources) Cerebrovascular accident; Translations: [Cerebral infarction, unspecified] Onset: 06-04-19 24 06-04-2023 Chronic Anxiety disorders (18 sources) Anxiety; Translations: [Anxiety disorder, unspecified] Onset: 06-04-19 24 03-22-2021 Chronic Cancer of prostate (20 sources) Malignant neoplasm of prostate; Translations: [Malignant tumor of prostate] Onset: 11-05-19 Chronic Cataract (20 sources) Age-related nuclear cataract of left eye; Translations: [Age-related nuclear cataract, left eye] Onset: 09-28-19 24 09-28-2023 Chronic Chronic kidney disease (20 sources) Chronic kidney disease stage 3; Translations: [Stage 3 chronic kidney disease] Onset: 06-21-11-19-2022 Chronic Chronic kidney disease (6 sources) Chronic [...] 10-25-19 Resolved : 10-25-1903-22-2021 Chronic Esophageal disorders (16 sources) Gastroesophageal reflux disease without esophagitis; Translations: [Gastro-esophageal reflux disease without esophagitis] Onset: 09-28-1909-28-2023 Chronic Essential hypertension (20 sources) Hypertensive disorder; Translations: [Essential (primary) hypertension] Onset: 04-27-2003-22-2021 Chronic Genitourinary symptoms and ill-defined conditions (20 sources) Nocturia; Translations: [Nocturia] Onset: 11-05-19 Episodic Hyperplasia of prostate (20 sources) Benign prostatic hypertrophy with outflow obstruction; Translations: [Benign prostatic hyperplasia with lower urinary tract symptoms] Onset: 11-05-19 Chronic Hypertension with complications and secondary hypertension (19 sources) Chronic kidney disease due to hypertension; [...] Open wounds of head; neck; and trunk (4 sources) Laceration of left cornea; Translations: [Ocular [...] Chronic Other diseases of kidney and ureters (10 sources) Secondary hyperparathyroidism; Translations: [Secondary hyperparathyroidism of [...] 28.0-28.9, adult] Onset: 08-18-19 24 08-18-2023 Episodic Other nutritional; endocrine; and metabolic disorders (2 sources) Body mass index (BMI) 28.0-28.9, adult; Translations: [Body mass index (BMI) 28.0-28.9, adult] Onset: 08-18-19 Episodic Peripheral and visceral atherosclerosis (20 sources) Peripheral vascular disease, unspecified; Translations: [Peripheral vascular disease, unspecified] Onset: 04-27-20 Resolved : 04-27-20 23 02-16-2023 Chronic Residual codes; unclassified (1 source) Other specified postprocedural states Episodic Residual codes; unclassified (1 source) Family history of ischemic heart disease and other diseases of the circulatory system Episodic Spondylosis; intervertebral disc disorders; other back problems (11 sources) Spondylosis without myelopathy or radiculopathy, lumbar region; Translations: [Other intervertebral disc degeneration, lumbar region] Onset: 01-24-20 Chronic Substance-related disorders (20 sources) Smoker; Translations: [...] DISEASE STG 3 UNSP] Onset: 02-01-20 Unclassified (2 sources) Post-op; Translations: [Post-op] Onset: 01-12-20 24 Unclassified (2 sources) Pre-op Exam; Translations: [Pre-op Exam] Onset: 11-05-19 24 Unclassified (2 sources) Consult; Translations: [Consult] Onset: 09-02-19 24 Unclassified (1 source) Foreign body sensation, unspecified; Translations: [Foreign body sensation, unspecified] Onset: 07-14-19 Urinary tract infections (20 sources) Urinary tract infectious disease; Translations: [Urinary tract infection, site not specified] Onset: 10-29-19 Episodic Past or Other Problems Problem Classification Problem Date Documented Date Episodic/Chronic Cancer of prostate (20 sources) History of malignant neoplasm of prostate; Translations: [Personal history of malignant neoplasm of prostate] Onset: 04-27-2023 Episodic Cardiac dysrhythmias (19 sources) Bradycardia; Translations: [Bradycardia, unspecified] Onset: 04-27-2023 06-04-2023 Episodic Diabetes mellitus without complication (14 sources) High glucose level in blood; Translations: [Hyperglycemia, unspecified] Onset: 09-28-2023 09-28-2023 Episodic Mood disorders (14 sources) Mood disorders Onset: 12-08-2023 12-08-2023 Nonspecific chest pain (9 sources) Chest discomfort; Translations: [Other chest pain] Onset: 06-04-2023 06-04-2023 Episodic Other aftercare (2 sources) rn long term care (current) use of anticoagulants; Translations: [snf (current) use of anticoagulants] Onset: 11-05-2023 Episodic Other connective tissue disease (6 sources) Other muscle spasm; Translations: [OTHER MUSCLE SPASM] Onset: 03-13-2022 Episodic Other connective tissue disease (14 sources) Synovial cyst of lumbar spine; Translations: [Other bursal cyst, other site] Onset: 09-02-2023 09-28-2023 Episodic Other connective tissue disease (2 sources) Other bursal cyst, other site; Translations: [Other bursal cyst, other site] Onset: 11-17-2023 Episodic Other nervous system disorders (2 sources) Other acute postprocedural pain; Translations: [Other acute postprocedural pain] Onset: 11-17-2023 Episodic Residual codes; unclassified (16 sources) Tobacco user; Translations: [Tobacco use] Onset: 06-29-2023 06-29-2023 Episodic Residual codes; unclassified (14 sources) Weight change finding; Translations: [Other general [...] Test Name Value Interpretation Reference Range Facility Erythrocyte distribution wid th Auto (RBC) [Ratio]Ordered By: Theo Thakkar on 02-13-2025 Erythrocyte distribution width (RBC) [Ratio] 13.6 % 11.0-15.0 [facility] Glomerular filtration rate ( GFR) estimation in non- AmericanOrdered By: Theo Thakkar on 02-13-2025 GFR/1.73 sq M.predicted among non-blacks MDRD (S/P/Bld) [Vol rate/Area] 34 mL/min/{1.73_m2} Low >=60 mL/min/1.7 3m 2 [facility] CBC WITH PLATELET NO DI FFERENTIALon 02-13-2025 Erythrocyte distribution width (RBC) [Ratio] 13.6 % 11.0 - 15.0 % [facility] [facility] Hematocrit (Bld) [Volume fraction] 39.3 % Low 42.0 - 54.0 % [facility] Hemoglobin (Bld) [Mass/Vol] 12.9 g/dL Low 14.0 - 18.0 g/dL [facility] Interpretation and review of laboratory results Abnormal [facility] MCH (RBC) [Entitic mass] 30.9 pg 25.9 - 34.[address] [facility] MCHC (RBC) [Mass/Vol] 32.8 g/dL 29.9 - 35.2 g/dL [facility] MCV (RBC) [Entitic vol] 94 fL 80.0 - 94.[address] [facility] Platelet mean volume (Bld) [Entitic vol] 10.3 fL 9.5 - 13.[address] [facility] PLT [address] [facility] RBC 4.[address] [facility] WBC [address] [facility] CLINISYNC [facility] Hematocrit Auto (Bld) [Volum e fraction]Ordered By: Theo Thakkar on 02-13-2025 Hematocrit (Bld) [Volume fraction] 39.3 % Low 42.0-54.0 [facility] Hemoglobin [Mass/volume] in BloodOrdered By: Theo Thakkar on 02-13-2025 Hemoglobin (Bld) [Mass/Vol] 12.9 g/dL Low 14.0-18.0 [facility] Iron binding capacity [Mass/ volume] in Serum or PlasmaOrdered By: Theo Thakkar on 02-13-2025 Iron binding capacity [Mass/Vol] 354.0 ug/dL 250.0-450. 0 [facility] Iron saturation [Mass Fracti on] in Serum or PlasmaOrdered By: Theo Thakkar on 02-13-2025 Iron saturation [Mass fraction] 22.6 % [facility] Laboratory - Chemistry and C hemistry - challengeOrdered By: Theo Thakkar on 02-13-2025 Bilirubin Ql (U) SMALL Abnormal NEGATIVE [facility] Glucose (U) [Mass/Vol] Negative NEGATIVE [facility] Ketones Ql (U) TRACE mg/dL Abnormal NEGATIVE [facility] pH (U) 5.5 [pH] 5.0-9.0 [facility] Specific gravity (U) [Rel density] 1.025 1.005-1.02 5 [facility] Urobilinogen Qn (U) 0.2 {Jing'U}/dL 0.2-1.0 [facility] Albumin [Mass/Vol] 3.8 g/dL 3.4-5.0 [facility] Calcium [Mass/Vol] 9.2 mg/dL 8.5-10.1 [facility] Chloride [Moles/Vol] 106 mmol/L 98-107 [facility] CO2 [Moles/Vol] 23.6 mmol/L 21.0-32.0 [facility] Creatinine [Mass/Vol] 1.93 mg/dL High 0.70-1.30 [facility] Ferritin [Mass/Vol] 45.0 ng/mL 26.0-388.0 [facility] GFR/1.73 sq M.predicted MDRD (S/P/Bld) [Vol rate/Area] 41 mL/min/{1.73_m2} Low >=60 mL/min/1.7 3m 2 [facility] Glucose [Mass/Vol] 105 mg/dL 74-106 [facility] Iron [Mass/Vol] 80.0 ug/dL 65.0-175.0 [facility] Magnesium [Mass/Vol] 2.0 mg/dL 1.8-2.4 [facility] Potassium [Moles/Vol] 5.2 mmol/L High 3.5-5.1 [facility] Sodium [Moles/Vol] 139 mmol/L 136-145 [facility] Urate [Mass/Vol] 6.6 mg/dL 3.5-7.2 [facility] Urea nitrogen [Mass/Vol] 28.0 mg/dL High 7.0-18.0 [facility] Urea nitrogen/Creatinine [Mass ratio] 14.5 mg/mg [facility] - Specimen inform ationOrdered By: Theo Thakkar on 02-13-2025 Appearance (U) SL CLOUDY CLEAR [facility] Color (U) LT. YELLOW YELLOW [facility] - UrinalysisOrder ed By: Theo Thakkar on 02-13-2025 Leukocyte esterase Test strip Ql (U) LARGE Abnormal NEGATIVE [facility] Mucus Ql (Urine sed) NONE SEEN NONE SEEN [facility] Nitrite Ql (U) Negative NEGATIVE [facility] Protein (U) [Mass/Vol] 147.8 mg/dL High <=11.9 [facility] Protein Ql (U) 100 mg/dL Abnormal NEG/TRACE [facility] Leukocytes [#/volume] correc diana for nucleated erythrocytes in Blood by Automated counOrdered By: Theo Thakkar on 02-13-2025 WBC corrected for nucl RBC Auto (Bld) [#/Vol] 8.0 10 3/uL 4.0-11.0 [facility] MCH Auto (RBC) [Entitic mass ]Ordered By: Theo Thakkar on 02-13-2025 MCH (RBC) [Entitic mass] 30.9 pg 25.9-34.0 [facility] MCHC Auto (RBC) [Mass/Vol]Or dered By: Theo Thakkar on 02-13-2025 MCHC (RBC) [Mass/Vol] 32.8 g/dL 29.9-35.2 [facility] MCV Auto (RBC) [Entitic vol] Ordered By: Theo Thakkar on 02-13-2025 MCV (RBC) [Entitic vol] 94.0 fL 80.0-94.0 [facility] No Panel InformationOrdered By: Theo Thakkar on 02-13-2025 Urine Bacteria SMALL #/HPF Abnormal NONE SEEN [facility] Urine Occult Blood TRACE-I NEGATIVE [facility] Urine Other Casts NONE SEEN #/LPF NONE SEEN [facility] Urine Other Crystals None Seen #/HPF None Seen [facility] Urine Random Creatinine 214.61 mg/dL 20.00-300. 00 [facility] Urine RBC 0-2 #/HPF 0-2 [facility] Urine Squamous Epithelial Cells RARE #/LPF NONE/RARE [facility] Urine WBC 50-75 #/HPF Abnormal NONE SEEN [facility] 25-Hydroxy Vitamin D Total 43.3 ng/mL [facility] Comment on above: <20 ng/mL Vit D defi cient20-<30 ng/mL Vit D sjvsiazprcle18-731 ng/mL Vit D sufficient>100 ng/mL Potential Toxicity Parathyroid Hormone (Intact) 81 pg/mL Abnormal [facility] Comment on above: Performed at: [address] [id number] Director: Rojelio Nelson PhD, Phone: [phone] Phosphorus Level 3.9 mg/dL 2.6-4.7 [facility] Platelet mean volume Auto (B ld) [Entitic vol]Ordered By: Theo Thakkar on 02-13-2025 Platelet mean volume (Bld) [Entitic vol] 10.3 fL 9.5-13.5 [facility] Platelets Auto (Bld) [#/Vol] Ordered By: Theo Thakkar on 02-13-2025 Platelets (Bld) [#/Vol] 271 10 3/uL 150-450 [facility] RBC Auto (Bld) [#/Vol]Ordere d By: Theo Thakkar on 02-13-2025 RBC (Bld) [#/Vol] 4.18 10 6/uL Low 4.70-6.10 [facility] Serum or plasma anion gap de terminationOrdered By: Theo Thakkar on 02-13-2025 Anion gap [Moles/Vol] 14.6 mmol/L [facility] Urine protein/creatinine rat ioOrdered By: Theo Thakkar on 02-13-2025 Protein/Creatinine (U) [Ratio] 0.69 [facility] CNOVon 01-18-2025 CNOV Office Visit (RADTSA ) -- YESENIA BROUSSARD ([id number]) 1945 M Date Time Provider Department 01/18/25 [...] Hyun Nazario MD cc: Shaikh Dotty [address] [place] [address] Allergies As of Date: 01/18/2025 (No Known Allergies) Date Reviewed: 01/18/2025 Reviewed by: Kelly Hector MA - Fully Assessed Reason for Visit: Prostate Cancer [590] Cmt: Follow up Primary Visit Diagnosis:Cancer of prostate w/med recur risk (T2b-c or Nicola 7 or PSA 10-20) (HCC) [C61] Order(s):PROSTATE-SPECIFIC ANTIGEN DIAGNOSTIC [SQPSA] Order #: [id number] FUTURE Prescriptions as of 01/18/2025 - HYDROcodone-acetaminophen [...] Service: OFFICE/OUTPATIENT ESTABLISHED LOW MDM 20 MIN [59141] Additional E/M codes: VISIT CPLX INHERENT EANDM ASSOC WITH MED * (more content not included)... Normal [facility] PSA SERPL-MCNCon 025 [facility] PSA SERPL-MCNC 1.56 ng/mL NINF - 2.60 ng/mL [facility] Comment on above: Total PSA test metho dology used is the Electrochemiluminescence Immunoassay by [employer]. Total PSA values by differing methodologies cannot be interchanged. Specimen Type: BLOOD SPECIMEN Ordering Facility: [facility] Address: [address] [place] [address] Original Ordering Provider: Hyun NAZARIO [facility] PSA SerPl-mCncon 01-12-2025 Prostate specific Ag [Mass/Vol] 1.56 ng/mL Normal <2.60 [facility] Comment on above: Order Comment: Speci men Type: BLOOD SPECIMEN Ordering Facility: [facility] Address: [address] [place] [address] Result Comment: Tota l PSA test methodology used is the Electrochemiluminescence Immunoassay by [employer]. Total PSA values by differing methodologies cannot be interchanged. Performed By: #### 2 [id number] #### [facility] CLIA [id number] [address] [place] [address] [place] Reminderson 11-08-2024 Reminders Reminders From: Bhavana Banks To: EU - Recalls Johnston; Sent: 08/29/2024 16:30:35 EDT Show up: 09/29/2024 16:30:00 EDT Subject: Ct scan/ Cysto Reminder/Recall Patient needs Ct scan and Cysto in October/November 2024 (CHEN) Pt office visit scheduled 04/2025 Normal [facility] Urine Cytology ([facility])on 0 09-02-2024 Microscopic exam Cytology (U) [Interp] Diagnosis Info Invalid Interpretation Code [facility] Comment on above: Result Comment: A:Ur ine,Urine:Voided Interpretation - Adequate cellularity for evaluation. CPT 27483 MicroScopic Description - Adequacy - Gross Description Site ID:A color Yellow fixative Alcohol Specimen designated Urine received in alcohol preservative and labeled with the patient???s name, consists of 70ml clear yellow fluid. Electronically signed by : on: 09/02/2024 13:57:41 Performed By: #### 1 [id number] #### [facility] [address] [place] [address] Ambulatory Visit Summaryon 0 08-29-2024 Ambulatory Visit Summary Ambulatory Visit Summary BROUSSARDYESENIA Timmy :1945 Visit Date:08/29/2024 Ambulatory Visit Instructions Your Diagnosis Gross hematuria Your Care Team Attending Physician - CLAIRE JAMES PA-C Primary Care Physician - AMBROSIO SCALES CNP This Is Your Medications List acetaminophen-hydrocodone (Marion 5/325 Tab) amlodipine (amLODIPine 10 mg Tab) [...] Barbara JOHNSTON MD Where: [facility] [address] [place] [id number]- You Need to Schedule the Following Appointments Follow Up with [facility] Xenia When: Comments: For procedure as scheduled. Where: Medications What How Much When Instructions Unchanged acetaminophen-hydrocodone (Marion 5/ 325 Tab) By Mouth Every 6 [...] these instructions at home: Medicines ??? Take itxk-aow-gspkkeo and prescription medicines only as told by [...] urine to (more content not included)... Normal [facility] Urine Cytology ([facility])on 0 08-29-2024 Method of Extraction Voided Normal [facility] Comment on above: Performed By: #### 1 [id number] #### [facility] [address] [place] [id number] Number of Jars 1 Invalid Interpretation Code [facility] Comment on above: Performed By: #### 1 [id number] #### [facility] [address] [place] [id number] Specimen Urine Normal [facility] Comment on above: Performed By: #### 1 [id number] #### [facility] [address] [place] [address] Type of Service Technical Only Normal [facility] Comment on above: Performed By: #### 1 [id number] #### [facility] [address] [place] [address] Urology Office/Clinic Noteon 08-29-2024 Urology Office/Clinic Note [...] E&M of Est. Patient Moderate 30-39 Min 56970 Urine Cytology ([facility]) Urnls Dip Stick Auto w/o Microscopy POC [id number] Follow-up With When Contact Information [facility] Additional Instructions: For procedure as scheduled. Patient [...] 1 tab(s) nitroglycerin 0.4 mg sublingual Tab Marion 5/325 Tab, Oral, q6hr pravastatin 40 mg [...] 11:52:00) Blood U (more content not included)... [facility] Comment on above: Result Comment: Elec tronically Signed By: BRITNI ENCINAS, CLAIRE Boswell\.br\Date and Time Signed: 08/29/24 14:09 EDT C Urineon 08-25-2024 Bacteria identified Cx Nom (U) Microbiology PROCEDURE: Urine Culture [R1] SOURCE: U CleanCatch BODY SITE: COLLECTED DATE/TIME: 08/22/2024 16:34 EDT RECEIVED DATE/TIME: 08/23/2024 17:54 EDT START DATE/TIME: 08/23/2024 17:54 EDT FREE TEXT SOURCE: Stewart MCMULLEN, INTERACTIVE PROJECT MANAGER-C, Stewart MCMULLEN, INTERACTIVE PROJECT MANAGER-C, Cherie X Cherie X FINAL REPORTS Final Report [] Verified Date/Time: 08/25/2024 07:02 EDT 100 cfu/ml Mixed skin contaminants Performing Locations R1: This test was performed at: [facility], [address] [place] [address], [address] , [place], [facility] Comment on above: Performed By: #### 2 [id number] #### [facility] [address] [place] [id number] Ambulatory Visit Summaryon 0 08-22-2024 Ambulatory Visit Summary Ambulatory Visit Summary YESENIA BROUSSARD DOB:1945 Visit Date:08/22/2024 Ambulatory Visit Instructions Your Care Team Attending Physician - Barbara JOHNSTON MD Primary Care Physician - AMBROSIO SCALES CNP This Is Your Medications List acetaminophen-hydrocodone (Marion 5/325 Tab) amlodipine (amLODIPine 10 mg Tab) [...] MAK, Barbara Warner Where: [facility] [address] Medications What How Much When Instructions Unchanged acetaminophen-hydrocodone (Marion 5/ 325 Tab) By Mouth Every 6 [...] for choosing us for your care. Normal [facility] Follow-Upon 08-18-2024 Follow-Up [id number] Dianne Broussard ld 1945 M Date Provider Department Center 08/18/2024 JOELLEN STANTON [facility] SURG Second Fl Family History Problem Relation Age of Onset Hypertension Mother Diabetes Father Family Status - Relation Status Age at Mother Father Level of Service:89761 [place] OFFICE/OUTPATIENT ESTABLISHED LOW MDM 20 MIN Reason for Visit and Comments: Follow-up [296585] Normal [facility] C Urineon 08-12-2024 Bacteria identified Cx [...] This test was performed at: [facility], [address] [place] [address], [facility]- , [place], [facility] Comment on above: Performed By: #### 2 [id number] #### [facility] [address] [place] [address] Albumin [Mass/volume] in Ser um or Plasma by Bromocresol green (BCG) dye binding methoOrdered By: Theo Thakkar on 08-10-2024 Albumin BCG dye [Mass/Vol] Albumin [Mass/volume] in Serum or Plasma by Bromocresol green (BCG) dye binding metho 3.5-5.7 [facility] Appearance of UrineOrdered B y: Theo Thakkar on 08-10-2024 Appearance (U) Urine appearance Clear [facility] Bacteria [Presence] in Urine by AutomatedOrdered By: Theo Thakkar on 08-10-2024 Bacteria Auto Ql (U) Bacteria [Presence] in Urine by Automated None Seen [facility] Bilirubin Test strip Ql (U)O rdered By: Theo Thakkar on 08-10-2024 Bilirubin Ql (U) Bilirubin.total [Pre sence] in Urine by Test strip Negative [facility] Calcium [Mass/volume] in Ser um or PlasmaOrdered By: Theo Thakkar on 08-10-2024 Calcium [Mass/Vol] Calcium [Mass/volume ] in Serum or Plasma 8.6-10.3 [facility] Carbon dioxide, total [Moles /volume] in Serum or PlasmaOrdered By: Theo Thakkar on 08-10-2024 CO2 [Moles/Vol] Carbon dioxide, tota l [Moles/volume] in Serum or Plasma 21.0-31.0 [facility] Chloride [Moles/volume] in S jaime or PlasmaOrdered By: Theo Thakkar on 08-10-2024 Chloride [Moles/Vol] Chloride [Moles/vol ume] in Serum or Plasma 98-107 [facility] Color Auto (U)Ordered By: Ab bola Thakkar on 08-10-2024 Color (U) Color of Urine by [facility] Creatinine [Mass/volume] in Serum or PlasmaOrdered By: hTeo Thakkar on 08-10-2024 Creatinine [Mass/Vol] Creatinine [Mass/v olume] in Serum or Plasma High 0.70-1.30 [facility] Creatinine [Mass/volume] in UrineOrdered By: Theo Thakkar on 08-10-2024 Creatinine (U) [Mass/Vol] Creatinine [Mass/volume] in Urine [facility] Comment on above: No reference range e stablished Dipstick and Microscopicon 0 08-10-2024 Appearance (U) Clear Normal Clear [facility] Comment on above: Order Comment: Name Collection Type:: Clean-Voided Midstream Performed By: #### P TH, RENAL, MG, [id number], URIC, CBCNO, JAVIER, FE and TIBC #### [facility] [address] Bacteria,Urine None Seen Normal None Seen [facility] Comment on above: Order Comment: Name Collection Type:: Clean-Voided Midstream Performed By: #### P TH, RENAL, MG, [id number], URIC, CBCNO, JAVIER, FE and TIBC #### [address] Bilirubin,Urine Negative Normal Negative [facility] Comment on above: Order Comment: Name Collection Type:: Clean-Voided Midstream Performed By: #### P TH, RENAL, MG, [id number], URIC, CBCNO, JAVIER, FE and TIBC #### [address] Color (U) Light-Yellow Normal Yellow [facility] Comment on above: Order Comment: Name Collection Type:: Clean-Voided Midstream Performed By: #### P TH, RENAL, MG, [id number], URIC, CBCNO, JAVIER, FE and TIBC #### [address] Glucose Ql (U) Normal Normal Normal [facility] Comment on above: Order Comment: Name Collection Type:: Clean-Voided Midstream Performed By: #### P TH, RENAL, MG, [id number], URIC, CBCNO, JAVIER, FE and TIBC #### [address] Hyaline Casts,Urine 0-8 Normal 0-8 [facility] Comment on above: Order Comment: Name Collection Type:: Clean-Voided Midstream Performed By: #### P TH, RENAL, MG, [id number], URIC, CBCNO, JAVIER, FE and TIBC #### [address] Ketones Ql (U) Negative Normal Negative [facility] Comment on above: Order Comment: Name Collection Type:: Clean-Voided Midstream Performed By: #### P TH, RENAL, MG, [id number], URIC, CBCNO, JAVIER, FE and TIBC #### [address] Leukocyte esterase Test strip Ql (U) 2+ High Negative [facility] Comment on above: Order Comment: Name Collection Type:: Clean-Voided Midstream Performed By: #### P TH, RENAL, MG, [id number], URIC, CBCNO, JAVIER, FE and TIBC #### [address] Mucus,Urine Rare Normal [facility] Comment on above: Order Comment: Name Collection Type:: Clean-Voided Midstream Result Comment: PERF ORMED BY: [place] [address] PATHOLOGIST [employer] ROS GUNDERSON M.D. Performed By: #### P TH, RENAL, MG, [id number], URIC, CBCNO, JAVIER, FE and TIBC #### [address] Nitrite,Urine Negative Normal Negative [facility] Comment on above: Order Comment: Name Collection Type:: Clean-Voided Midstream Performed By: #### P TH, RENAL, MG, [id number], URIC, CBCNO, JAVIER, FE and TIBC #### [address] Occult Blood,Urine 1+ High Negative [facility] Comment on above: Order Comment: Name Collection Type:: Clean-Voided Midstream Performed By: #### P TH, RENAL, MG, [id number], URIC, CBCNO, JAVIER, FE and TIBC #### [address] pH (U) 6.0 [pH] Normal 5.0-9.0 [facility] Comment on above: Order Comment: Name Collection Type:: Clean-Voided Midstream Performed By: #### P TH, RENAL, MG, [id number], URIC, CBCNO, JAVIER, FE and TIBC #### [address] Protein (U) [Mass/Vol] 50 mg/dL High Negative e [facility] Comment on above: Order Comment: Name Collection Type:: Clean-Voided Midstream Performed By: #### P TH, RENAL, MG, [id number], URIC, CBCNO, JAVIER, FE and TIBC #### [address] RBC,Urine 5-9 High 0-4 [facility] Comment on above: Order Comment: Name Collection Type:: Clean-Voided Midstream Performed By: #### P TH, RENAL, MG, [id number], URIC, CBCNO, JAVIER, FE and TIBC #### [address] Specificy [place],Urine 1.016 Normal 1.001-1.03 0 [facility] Comment on above: Order Comment: Name Collection Type:: Clean-Voided Midstream Performed By: #### P TH, RENAL, MG, [id number], URIC, CBCNO, JAVIER, FE and TIBC #### [address] Urobilinogen,Urine Normal Normal Normal [facility] Comment on above: Order Comment: Name Collection Type:: Clean-Voided Midstream Performed By: #### P TH, RENAL, MG, [id number], URIC, CBCNO, JAVIER, FE and TIBC #### [address] WBC CLUMP, Urine Occasional High None Seen [facility] Comment on above: Order Comment: Name Collection Type:: Clean-Voided Midstream Performed By: #### P TH, RENAL, MG, [id number], URIC, CBCNO, JAVIER, FE and TIBC #### [address] WBC,Urine 20-49 High 0-4 [facility] Comment on above: Order Comment: Name Collection Type:: Clean-Voided Midstream Performed By: #### P TH, RENAL, MG, [id number], URIC, CBCNO, JAVIER, FE and TIBC #### [address] Epithelial cells.squamous [# /area] in Urine sediment by Automated countOrdered By: Theo Thakkar on 08-10-2024 Epithelial cells.squamous Auto (Urine sed) [#/Area] Epithelial cells.squamous [#/area] in Urine sediment by Automated count [facility] Erythrocyte distribution wid th Auto (RBC) [Ratio]Ordered By: Theo Thakkar on 08-10-2024 Erythrocyte distribution width (RBC) [Ratio] Erythrocyte distribution width [Ratio] by Automated count High 12.0-14.8 [facility] Erythrocytes [#/area] in Uri ne sediment by Automated countOrdered By: Theo Thakkar on 08-10-2024 RBC Auto (Urine sed) [#/Area] Erythrocytes [#/area] in Urine sediment by Automated count High 0-4 [facility] Ferritinon 08-10-2024 Ferritin [Mass/Vol] 14.0 ng/mL Low 23.9-336.2 [facility] Comment on above: Performed By: #### P TH, RENAL, MG, [id number], URIC, CBCNO, JAVIER, FE and TIBC #### [facility] [address] Ferritin [Mass/volume] in Se rum or PlasmaOrdered By: Theo Thakkar on 08-10-2024 Ferritin [Mass/Vol] Ferritin [Mass/volum e] in Serum or Plasma Low 23.9-336.2 [facility] Glucose [Mass/volume] in Ser um or PlasmaOrdered By: Theo Thakkar on 08-10-2024 Glucose [Mass/Vol] Glucose [Mass/volume ] in Serum or Plasma High 70-100 [facility] Comment on above: ADA recommended [...] [Mass/volume] in Urine by Test strip Normal [facility] Hematocrit Auto (Bld) [Volum e fraction]Ordered By: Theo Thakkar on 08-10-2024 Hematocrit (Bld) [Volume fraction] Hematocrit [Volume Fraction] of Blood by Automated count 38.8-50.0 [facility] Hemoglobin Test strip Ql (U) Ordered By: Theo Thakkar on 08-10-2024 Hemoglobin Ql (U) Hemoglobin [Presence ] in Urine by Test strip High Negative [facility] Hemoglobin [Mass/volume] in BloodOrdered By: Theo Thakkar on 08-10-2024 Hemoglobin (Bld) [Mass/Vol] Hemoglobin [Mass/volume] in Blood 13.0-17.0 [facility] Hemogram CBC Without Diffon 08-10-2024 Erythrocyte distribution width (RBC) [Ratio] 15.8 % High 12.0-14.8 [facility] Comment on above: Performed By: #### P TH, RENAL, MG, [id number], URIC, CBCNO, JAVIER, FE and TIBC #### [address] Hematocrit (Bld) [Volume fraction] 39.2 % Normal 38.8-50.0 [facility] Comment on above: Performed By: #### P TH, RENAL, MG, [id number], URIC, CBCNO, JAVIER, FE and TIBC #### [address] Hemoglobin (Bld) [Mass/Vol] 13.0 g/dL Normal 13.0-17.0 [facility] Comment on above: Performed By: #### P TH, RENAL, MG, [id number], URIC, CBCNO, JAVIER, FE and TIBC #### [address] MCH (RBC) [Entitic mass] 29.9 pg Normal 27.5-35.2 [facility] Comment on above: Performed By: #### P TH, RENAL, MG, [id number], URIC, CBCNO, JAVIER, FE and TIBC #### [address] MCV (RBC) [Entitic vol] 90.3 fL Normal 83.5-101 [facility] Comment on above: Performed By: #### P TH, RENAL, MG, [id number], URIC, CBCNO, JAVIER, FE and TIBC #### [address] Mean Corpuscular HGB Conc 33.1 g/dL Normal 32.5-35.6 [facility] Comment on above: Performed By: #### P TH, RENAL, MG, [id number], URIC, CBCNO, JAVIER, FE and TIBC #### [address] Platelet mean volume (Bld) [Entitic vol] 8.9 fL Normal 6.6-10.1 [facility] Comment on above: Result Comment: PERF ORMED BY: [place] [address] PATHOLOGIST [employer] ROS GUNDERSON M.D. Performed By: #### P TH, RENAL, MG, [id number], URIC, CBCNO, JAVIER, FE and TIBC #### [address] Platelets (Bld) [#/Vol] 293 10*3/uL Normal 150-450 [facility] Comment on above: Performed By: #### P TH, RENAL, MG, [id number], URIC, CBCNO, JAVIER, FE and TIBC #### [address] RBC (Bld) [#/Vol] 4.34 10*6/uL Normal 3.90-5.60 [facility] Comment on above: Performed By: #### P TH, RENAL, MG, [id number], URIC, CBCNO, JAVIER, FE and TIBC #### [address] WBC (Bld) [#/Vol] 6.9 10*3/uL Normal 4.1-10.5 [facility] Comment on above: Performed By: #### P TH, RENAL, MG, [id number], URIC, CBCNO, JAVIER, FE and TIBC #### [address] Hyaline casts [#/area] in Ur ine sediment by Automated countOrdered By: Theo Thakkar on 08-10-2024 Hyaline casts Auto (Urine sed) [#/Area] Hyaline casts [#/area] in Urine sediment by Automated count 0-8 [facility] Iron [Mass/volume] in Serum or PlasmaOrdered By: Theo Thakkar on 08-10-2024 Iron [Mass/Vol] Iron [Mass/volume] i n Serum or Plasma 50-212 [facility] Iron and TIBC Profileon 07-30 % Iron Saturation 19.9 % Low 20-50 [facility] Comment on above: Performed By: #### P TH, RENAL, MG, [id number], URIC, CBCNO, JAVIER, FE and TIBC #### [facility] [address] Iron [Mass/Vol] 87 ug/dL Normal 50-212 [facility] Comment on above: Performed By: #### P TH, RENAL, MG, [id number], URIC, CBCNO, JAVIER, FE and TIBC #### [facility] [address] Total Iron Binding Capacity 438 ug/dL Normal 255-450 [facility] Comment on above: Performed By: #### P TH, RENAL, MG, [id number], URIC, CBCNO, JAVIER, FE and TIBC #### [facility] [address] Transferrin [Mass/Vol] 313 mg/dL Normal 203-362 [facility] Comment on above: Performed By: #### P TH, RENAL, MG, [id number], URIC, CBCNO, JAVIER, FE and TIBC #### [facility] [address] Ketones Test strip Ql (U)Ord ered By: Theo Thakkar on 08-10-2024 Ketones Ql (U) Ketones [Presence] i n Urine by Test strip Negative [facility] Leukocyte clumps [Presence] in Urine by AutomatedOrdered By: Theo Thakkar on 08-10-2024 Leukocyte clumps Auto Ql (U) Leukocyte clumps [Presence] in Urine by Automated High None Seen [facility] Leukocyte esterase [Presence ] in Urine by Test stripOrdered By: Theo Thakkar on 08-10-2024 Leukocyte esterase Test strip Ql (U) Leukocyte esterase [Presence] in Urine by Test strip High Negative [facility] Leukocytes [#/area] in Urine sediment by Automated countOrdered By: Theo Thakkar on 08-10-2024 WBC Auto (Urine sed) [#/Area] Leukocytes [#/area] in Urine sediment by Automated count High 0-4 [facility] Leukocytes [#/volume] correc diana for nucleated erythrocytes in Blood by Automated counOrdered By: Theo Thakkar on 08-10-2024 WBC corrected for nucl RBC Auto (Bld) [#/Vol] Leukocytes [#/volume] corrected for nucleated erythrocytes in Blood by Automated coun 4.1-10.5 [facility] MCH Auto (RBC) [Entitic mass ]Ordered By: Theo Thakkar on 08-10-2024 MCH (RBC) [Entitic mass] MCH [Entitic mass] by Automated count 27.5-35.2 [facility] MCHC Auto (RBC) [Mass/Vol]Or dered By: Theo Thakkar on 08-10-2024 MCHC (RBC) [Mass/Vol] MCHC [Mass/volume] by Automated count 32.5-35.6 [facility] MCV Auto (RBC) [Entitic vol] Ordered By: Theo Thakkar on 08-10-2024 MCV (RBC) [Entitic vol] MCV [Entitic volume] by Automated count 83.5-101 [facility] Magnesiumon 08-10-2024 Magnesium [Mass/Vol] 2.1 mg/dL Normal 1.9-2.7 [facility] Comment on above: Performed By: #### P TH, RENAL, MG, [id number], URIC, CBCNO, JAVIER, FE and TIBC #### [facility] [address] Magnesium [Mass/volume] in S jaime or PlasmaOrdered By: Theo Thakkar on 08-10-2024 Magnesium [Mass/Vol] Magnesium [Mass/vol ume] in Serum or Plasma 1.9-2.7 [facility] Mucus [Presence] in Urine by AutomatedOrdered By: Theo Thakkar on 08-10-2024 Mucus Auto Ql (U) Mucus [Presence] in Urine by Automated [facility] Nitrite Test strip Ql (U)Ord ered By: Theo Thakkar on 08-10-2024 Nitrite Ql (U) Nitrite [Presence] i n Urine by Test strip Negative [facility] No Panel InformationOrdered By: Theo Thakkar on 08-10-2024 Estimated GFR (CKD-EPI) 39.659 mL/Min [facility] Creatinine Clearance (Chem N/A [facility] Parathyrin.intact [Mass/volu me] in Serum or PlasmaOrdered By: Theo Thakkar on 08-10-2024 Parathyrin.intact [Mass/Vol] Parathyrin.intact [Mass/volume] in Serum or Plasma High [facility] Parathyroid Hormone Intacton 08-10-2024 Parathyroid Hormone Intact 96.1 pg/mL High [facility] Comment on above: Result Comment: PERF ORMED BY: [place] [address] PATHOLOGIST [employer] ROS GUNDERSON M.D. Performed By: #### P TH, RENAL, MG, [id number], URIC, CBCNO, JAVIER, FE and TIBC #### [facility] [address] Phosphate [Mass/volume] in S jaime or PlasmaOrdered By: Theo Thakkar on 08-10-2024 Phosphate [Mass/Vol] Phosphate [Mass/vol ume] in Serum or Plasma 2.5-4.5 [facility] Platelet mean volume Auto (B ld) [Entitic vol]Ordered By: Theo Thakkar on 08-10-2024 Platelet mean volume (Bld) [Entitic vol] Platelet mean volume [Entitic volume] in Blood by Automated count 6.6-10.1 [facility] Platelets Auto (Bld) [#/Vol] Ordered By: Theo Thakkar on 08-10-2024 Platelets (Bld) [#/Vol] Platelets [#/volume] in Blood by Automated count 150-450 [facility] Potassium [Moles/volume] in Serum or PlasmaOrdered By: Theo Thakkar on 08-10-2024 Potassium [Moles/Vol] Potassium [Moles/v olume] in Serum or Plasma 3.5-5.1 [facility] Protein Creat Ratio Ur Rando mon 08-10-2024 Creatinine, Urine (Random) 114.00 mg/dL Normal [facility] Comment on above: Result Comment: No r eference range established Performed By: #### P TH, RENAL, MG, [id number], URIC, CBCNO, JAVIER, FE and TIBC #### [facility] [address] Protein (U) [Mass/Vol] 81 mg/dL High 0-9 Th e [facility] Comment on above: Performed By: #### P TH, RENAL, MG, [id number], URIC, CBCNO, JAVIER, FE and TIBC #### [facility] [address] Urine Protein/Creatinine Ratio 711 mg/g{Cre} High 0-200 [facility] Comment on above: Result Comment: PERF ORMED BY: [place] [address] PATHOLOGIST [employer] ROS GUNDERSON M.D. Performed By: #### P TH, RENAL, MG, [id number], URIC, CBCNO, JAVIER, FE and TIBC #### [facility] [address] [place] [address] Protein Test strip (U) [Mass /Vol]Ordered By: Theo Thakkar on 08-10-2024 Protein (U) [Mass/Vol] Protein [Mass/vol ume] in Urine by Test strip High Negative [facility] Protein [Mass/volume] in Uri neOrdered By: Theo Thakkar on 08-10-2024 Protein (U) [Mass/Vol] Protein [Mass/vol ume] in Urine High 0-9 [facility] RBC Auto (Bld) [#/Vol]Ordere d By: Theo Thakkar on 08-10-2024 RBC (Bld) [#/Vol] Erythrocytes [#/volu me] in Blood by Automated count 3.90-5.60 [facility] Renal Function Panelon 08-10 Albumin [Mass/Vol] 4.3 g/dL Normal 3.5-5.7 [facility] Comment on above: Performed By: #### P TH, RENAL, MG, [id number], URIC, CBCNO, JAVIER, FE and TIBC #### [address] Anion gap [Moles/Vol] 9.2 mmol/L Normal 6.0-15.0 [facility] Comment on above: Performed By: #### P TH, RENAL, MG, [id number], URIC, CBCNO, JAVIER, FE and TIBC #### [address] Calcium [Mass/Vol] 9.2 mg/dL Normal 8.6-10.3 [facility] Comment on above: Performed By: #### P TH, RENAL, MG, [id number], URIC, CBCNO, JAVIER, FE and TIBC #### [address] Chloride [Moles/Vol] 106 mmol/L Normal 98-107 [facility] Comment on above: Performed By: #### P TH, RENAL, MG, [id number], URIC, CBCNO, JAVIER, FE and TIBC #### [address] CO2 [Moles/Vol] 27.7 mmol/L Normal 21.0-31.0 [facility] Comment on above: Performed By: #### P TH, RENAL, MG, [id number], URIC, CBCNO, JAVIER, FE and TIBC #### [address] Creatinine [Mass/Vol] 1.73 mg/dL High 0.70-1.30 [facility] Comment on above: Performed By: #### P TH, RENAL, MG, [id number], URIC, CBCNO, JAVIER, FE and TIBC #### [address] Estimated GFR 39.659 mL/Min Normal [facility] Comment on above: Performed By: #### P TH, RENAL, MG, [id number], URIC, CBCNO, JAVIER, FE and TIBC #### [address] Glucose [Mass/Vol] 119 mg/dL High 70-100 [facility] Comment on above: Result Comment: [place] Glucose Reference Range is dependent on time and content of last meal. Glucose of more than 200 mg/dL in a nonstressed, ambulatory subject supports the diagnosis of Diabetes Mellitus. ADA recommended reference range Performed By: #### P TH, RENAL, MG, [id number], URIC, CBCNO, JAVIER, FE and TIBC #### [address] Phosphate [Mass/Vol] 3.4 mg/dL Normal 2.5-4.5 [facility] Comment on above: Performed By: #### P TH, RENAL, MG, [id number], URIC, CBCNO, JAVIER, FE and TIBC #### [address] Potassium [Moles/Vol] 4.9 mmol/L Normal 3.5-5.1 [facility] Comment on above: Performed By: #### P TH, RENAL, MG, [id number], URIC, CBCNO, JAVIER, FE and TIBC #### [address] Sodium [Moles/Vol] 138 mmol/L Normal 136-145 [facility] Comment on above: Performed By: #### P TH, RENAL, MG, [id number], URIC, CBCNO, JAVIER, FE and TIBC #### [address] Urea nitrogen [Mass/Vol] 24 mg/dL Normal 7-25 [facility] Comment on above: Performed By: #### P TH, RENAL, MG, [id number], URIC, CBCNO, JAVIER, FE and TIBC #### [place] [address] [facility] Serum or plasma anion gap de terminationOrdered By: Theo Thakkar on 08-10-2024 Anion gap [Moles/Vol] Serum or plasma an ion gap determination 6.0-15.0 [facility] Serum or plasma iron binding capacity measurement (mass/volume)Ordered By: Theo Thakkar on 08-10-2024 Iron binding capacity [Mass/Vol] Iron binding capacity [Mass/volume] in Serum or Plasma 255-450 [facility] Serum or plasma iron saturat ion measurement (mass fraction)Ordered By: Theo Thakkar on 08-10-2024 Iron saturation [Mass fraction] Iron saturation [Mass Fraction] in Serum or Plasma Low 20-50 [facility] Sodium [Moles/volume] in Ser um or PlasmaOrdered By: Theo Thakkar on 08-10-2024 Sodium [Moles/Vol] Sodium [Moles/volume ] in Serum or Plasma 136-145 [facility] Specific gravity Test strip (U) [Rel density]Ordered By: Theo Thakkar on 08-10-2024 Specific gravity (U) [Rel density] Specific gravity of Urine by Test strip 1.001-1.03 0 [facility] Transferrin [Mass/volume] in Serum or PlasmaOrdered By: Theo Thakkar on 08-10-2024 Transferrin [Mass/Vol] Transferrin [Mass /volume] in Serum or Plasma 203-362 [facility] Urate [Mass/volume] in Serum or PlasmaOrdered By: Theo Thakkar on 08-10-2024 Urate [Mass/Vol] Urate [Mass/volume] in Serum or Plasma 4.4-7.6 [facility] Urea nitrogen [Mass/volume] in Serum or PlasmaOrdered By: Theo Thakkar on 08-10-2024 Urea nitrogen [Mass/Vol] Urea nitrogen [Mass/volume] in Serum or Plasma 7-25 [facility] Uric Acidon 08-10-2024 Urate [Mass/Vol] 6.2 mg/dL Normal 4.4-7.6 [facility] Comment on above: Performed By: #### P TH, RENAL, MG, [id number], URIC, CBCNO, JAVIER, FE and TIBC #### [facility] [address] [place] [address] Urine Cultureon 08-10-2024 Bacteria identified Cx Nom (U) No Growth 2 Days PERFORMED BY: [place] [address] PATHOLOGIST [employer] ROS GUNDERSON M.D. Normal [facility] Comment on above: Performed By: #### P TH, RENAL, MG, [id number], URIC, CBCNO, JAVIER, FE and TIBC #### [address] Urine cultureOrdered By: Abd ul Vivian on 08-10-2024 Bacteria identified Cx Nom (U) Urine culture [facility] Urine protein/creatinine rat ioOrdered By: Theo Vivian on 08-10-2024 Protein/Creatinine (U) [Ratio] Urine protein/creatinine ratio High 0-200 [facility] Urobilinogen Test strip (U) [Mass/Vol]Ordered By: Theo Vivian on 08-10-2024 Urobilinogen (U) [Mass/Vol] Urobilinogen [Mass/volume] in Urine by Test strip Normal [facility] Vitamin D 25 Hydroxy Totalon 08-10-2024 Vitamin D 25 Hydroxy Total 51.2 ng/mL Normal 30-100 [facility] Comment on above: Result Comment: [place] MIN D STATUS 25(OH)VITAMIN D RANGE (ng/mL) Deficient <20 Insufficient 20 to <30 Sufficient 30 to 100 Reference: Grecia MF,Wayne NC, John VILLEGAS, et al. Evaluation,treatment, and prevention of vitamin D deficiency; an Endocrine Society clinical practice guideline. JCEM. 2010; 96(7):1911-30. PERFORMED BY: [place] [address] PATHOLOGIST [employer] ROS GUNDERSON M.D. Performed By: #### P TH, RENAL, MG, [id number], URIC, CBCNO, JAVIER, FE and TIBC #### [address] Vitamin D+Metabolites [Mass/ volume] in Serum or PlasmaOrdered By: Theo Thakkar on 08-10-2024 Vitamin D+Metabolites [Mass/Vol] Vitamin D+Metabolites [Mass/volume] in Serum or Plasma 30-100 [facility] Comment on above: VITAMIN D STATUS 25( [place])VITAMIN D RANGE (ng/mL) Deficient <20 Insufficient 20 to <30Sufficient 30 to 100Reference: Grecia MF,Wayne PALMER, John VILLEGAS, et al. Evaluation,treatment, and prevention of vitamin D deficiency; an Endocrine Society clinical practice guideline. JCEM. 2010; 96(7):1911-30. pH Test strip (U)Ordered By: Theo Thakkar on 08-10-2024 pH (U) pH of Urine by Test strip 5.0-9.0 [facility] Urology Office/Clinic Noteon 08-08-2024 Urology Office/Clinic [...] day(s), # 14 cap(s), Refills(s) 0, Pharmacy: [facility]/pharmacy #[id number], 178, cm, 08/08/24 12:38:00 EDT, Height/Length Dosing, 90.4, kg, 08/08/24 12:38:00 EDT, Weight Dosing 11186 Measure Post Void residual urine and/or bladder capacity by US- non-imaging Body Mass Index (BMI) documented 3008F Current tobacco smoker 1034F Depression Screening Negative 3352F E&M of Est. Patient Moderate 30-39 Min 45505 Influenza immunization status assessed 1030F Medication list [...] Urnls Dip Stick Auto w/o Microscopy POC [id number] Orders: tadalafil, 20 mg = 1 tab(s), Oral, As Directed, Do not exceed 20mg within 48 hours., # 30 tab(s), Refills(s) 1, Pharmacy: [facility] #[id number], 178, cm, 07/07/23 9:25:00 EST, Height/Length Dosing, 92, kg, 07/07/23 9:25:00 EST, Weight Dosing Follow-up With When Contact Information [facility] [place] Additional Instructions: Only if needed/new problems arise. [...] Oral, q12hr nitroglycerin 0.4 mg sublingual Tab Marion 5/325 Tab, Oral, q6hr pravastatin 40 mg [...] 08/08/2024 F (more content not included)... Normal [facility] Comment on above: Result Comment: Elec tronically Signed By: BRITNI ENCINAS, CLAIRE Kulkarni.br\Date and Time Signed: 08/08/24 13:51 EDT Ambulatory Visit Summaryon 1 06-18-2023 Ambulatory Visit Summary Ambulatory Visit Summary YESENIA BROUSSARD :1945 Visit Date:04/18/2024 Ambulatory Visit Instructions Your Diagnosis History of prostate cancer Recurrent UTI BPH with urinary obstruction Nocturia Erectile dysfunction Your Care Team Attending Physician - Barbara JOHNSTON MD Primary Care Physician - ED, MS. NASIR MAHONEY This Is Your Medications List tadalafil (Cialis 20 mg Tab) Contact prescribing physician if questions or concerns acetaminophen-hydrocodone (Marion 5/325 Tab) amlodipine (amLODIPine 10 mg Tab) [...] Barbara JOHNSTON MD Where: [facility] [address] [place] [address]- You Need to Schedule the Following Appointments Follow Up with Barbara JOHNSTON MD, URL When: Comments: 1 yr w/ PSA Where: [facility] [address] , [place] [address]- [phone] Medications What How Much When Instructions Unchanged tadalafil (Cialis 20 mg Tab) 1 Tablets By Mouth As Directed Do not exceed 20mg within 48 hours. Unchanged acetaminophen-hydrocodone (Marion 5/ 325 Tab) By Mouth Every 6 [...] You villegas (more content not included)... Normal [facility] Urology Office/Clinic Noteon 04-18-2024 Urology Office/Clinic Note [...] [facility] [address], [place] [address] [phone] Additional Instructions: 1 yr w/ PSA Patient [...] infection) UTI (more content not included)... Normal [facility] Comment on above: Result Comment: [...] DATE/TIME: 04/07/2024 19:36 EST FREE TEXT SOURCE: Jalyn BELTRAN, Karime BELTRAN, Karime Stone FINAL REPORTS Final Report [] [...] This test was performed at: [facility], [address] [place] [address], [id number]- , [place], Normal [facility] Comment on above: Performed By: #### 2 [id number] #### [facility] [address] [place] [id number] Albumin [Mass/volume] in Ser um or Plasma by Bromocresol green (BCG) dye binding methoOrdered By: Theo Thakkar on 02-25-2024 Albumin BCG dye [Mass/Vol] 4.2 g/dL 3.5-5.7 [facility] Bacteria [Presence] in Urine by AutomatedOrdered By: Theo Thakkar on 02-25-2024 Bacteria Auto Ql (U) None seen [HPF] None Seen [facility] Bilirubin Test strip Ql (U)O rdered By: Theo Thakkar on 02-25-2024 Bilirubin Ql (U) Negative Negative [facility] Calcium [Mass/volume] in Ser um or PlasmaOrdered By: Theo Thakkar on 02-25-2024 Calcium [Mass/Vol] 9.4 mg/dL Normal 8.6-10.3 [facility] Comment on above: Order Comment: Reaso n for Exam Chronic kidney disease, stage III (moderate);Charly hy kid w cr Performed By: #### P TH, RENAL, MG, [id number], URIC, CBCNO, JAVIER, FE and TIBC #### [facility] [address] [place] [address] [facility] Carbon dioxide, total [Moles /volume] in Serum or PlasmaOrdered By: Theo Thakkar on 02-25-2024 CO2 [Moles/Vol] 24.9 mmol/L Normal 21.0-31.0 [facility] Comment on above: Order Comment: Reaso n for Exam Chronic kidney disease, stage III (moderate);Charly kid w cr Performed By: #### P TH, RENAL, MG, [id number], URIC, CBCNO, JAVIER, FE and TIBC #### [facility] [address] [place] [id number] [place] Chloride [Moles/volume] in S jaime or PlasmaOrdered By: Theo Thakkar on 02-25-2024 Chloride [Moles/Vol] 105 mmol/L Normal 98-107 [facility] Comment on above: Order Comment: Reaso n for Exam Chronic kidney disease, stage III (moderate);Charly hy kid w cr Performed By: #### P TH, RENAL, MG, [id number], URIC, CBCNO, JAVIER, FE and TIBC #### [facility] [address] [place] [id number] [facility] Color of Urine by AutoOrdere d By: Theo Thakkar on 02-25-2024 Color (U) Yellow Normal Yellow [facility] Comment on above: Order Comment: Reaso n for Exam Chronic kidney disease, stage III (moderate);Charly hy kid w cr Name Collection Type:: Clean-Voided Midstream Performed By: #### P TH, RENAL, MG, [id number], URIC, CBCNO, JAVIER, FE and TIBC #### [facility] [address] [place] [id number] [place] Creatinine [Mass/volume] in Serum or PlasmaOrdered By: Theo Thakkar on 02-25-2024 Creatinine [Mass/Vol] 1.67 mg/dL High 0.70-1.30 [facility] Comment on above: Order Comment: Reaso n for Exam Chronic kidney disease, stage III (moderate);Charly hy kid w cr Performed By: #### P TH, RENAL, MG, [id number], URIC, CBCNO, JAVIER, FE and TIBC #### [facility] [address] [place] [phone] [facility] Creatinine [Mass/volume] in UrineOrdered By: Theo Thakkar on 02-25-2024 Creatinine (U) [Mass/Vol] 173.00 mg/dL [facility] Comment on above: No reference range e stablished Dipstick and Microscopicon 0 02-25-2024 Bacteria,Urine None Seen Normal None Seen [facility] Comment on above: Order Comment: Reaso n for Exam Chronic kidney disease, stage III (moderate);Charly hy kid w cr Name Collection Type:: Clean-Voided Midstream Performed By: #### P TH, RENAL, MG, [id number], URIC, CBCNO, JAVIER, FE and TIBC #### [facility] [address] Bilirubin,Urine Negative Normal Negative [facility] Comment on above: Order Comment: Reaso n for Exam Chronic kidney disease, stage III (moderate);Charly palomo cr Name Collection Type:: Clean-Voided Midstream Performed By: #### P TH, RENAL, MG, [id number], URIC, CBCNO, JAVIER, FE and TIBC #### [facility] [address] Glucose Ql (U) Normal Normal Normal [facility] Comment on above: Order Comment: Reaso n for Exam Chronic kidney disease, stage III (moderate);Charly palomo cr Name Collection Type:: Clean-Voided Midstream Performed By: #### P TH, RENAL, MG, [id number], URIC, CBCNO, JAVIER, FE and TIBC #### [facility] [address] [place] [address] Granular Casts, Urine 5-9 High None Seen [facility] Comment on above: Order Comment: Reaso n for Exam Chronic kidney disease, stage III (moderate);Charly palomo cr Name Collection Type:: Clean-Voided Midstream Performed By: #### P TH, RENAL, MG, [id number], URIC, CBCNO, JAVIER, FE and TIBC #### [facility] [address] [place] [address] Hyaline Casts,Urine 20-49 High 0-8 [facility] Comment on above: Order Comment: Reaso n for Exam Chronic kidney disease, stage III (moderate);Charly hill w cr Name Collection Type:: Clean-Voided Midstream Performed By: #### P TH, RENAL, MG, [id number], URIC, CBCNO, JAVIER, FE and TIBC #### [facility] [address] [place] [phone] [facility] Mucus,Urine Rare Normal [facility] Comment on above: Order Comment: Reaso n for Exam Chronic kidney disease, stage III (moderate);Charly palomo cr Name Collection Type:: Clean-Voided Midstream Result Comment: PERF ORMED BY: [place] [address] PATHOLOGIST [employer] ANA HURT M.D. Performed By: #### P TH, RENAL, MG, [id number], URIC, CBCNO, JAVIER, FE and TIBC #### [address] Nitrite,Urine Negative Normal Negative [facility] Comment on above: Order Comment: Reaso n for Exam Chronic kidney disease, stage III (moderate);Charly hill w cr Name Collection Type:: Clean-Voided Midstream Performed By: #### P TH, RENAL, MG, [id number], URIC, CBCNO, JAVIER, FE and TIBC #### [address] Occult Blood,Urine 1+ High Negative [facility] Comment on above: Order Comment: Reaso n for Exam Chronic kidney disease, stage III (moderate);Charly palomo cr Name Collection Type:: Clean-Voided Midstream Performed By: #### P TH, RENAL, MG, [id number], URIC, CBCNO, JAVIER, FE and TIBC #### [address] RBC,Urine 10-19 High 0-4 [facility] Comment on above: Order Comment: Reaso n for Exam Chronic kidney disease, stage III (moderate);Charly palomo cr Name Collection Type:: Clean-Voided Midstream Performed By: #### P TH, RENAL, MG, [id number], URIC, CBCNO, JAVIER, FE and TIBC #### [address] Specificy [place],Urine 1.018 Normal 1.001-1.03 0 [facility] Comment on above: Order Comment: Reaso n for Exam Chronic kidney disease, stage III (moderate);Charly hill w cr Name Collection Type:: Clean-Voided Midstream Performed By: #### P TH, RENAL, MG, [id number], URIC, CBCNO, JAVIER, FE and TIBC #### [facility] [address] Squamous Epithelial Cell,Urine 1-2 Normal 0-2 [facility] Comment on above: Order Comment: Reaso n for Exam Chronic kidney disease, stage III (moderate);Charly hill w cr Name Collection Type:: Clean-Voided Midstream Performed By: #### P TH, RENAL, MG, [id number], URIC, CBCNO, JAVIER, FE and TIBC #### [facility] [address] Urobilinogen,Urine Normal Normal Normal [facility] Comment on above: Order Comment: Reaso n for Exam Chronic kidney disease, stage III (moderate);Charly hill w cr Name Collection Type:: Clean-Voided Midstream Performed By: #### P TH, RENAL, MG, [id number], URIC, CBCNO, JAVIER, FE and TIBC #### [address] WBC CLUMP, Urine Many High None Seen [facility] Comment on above: Order Comment: Reaso n for Exam Chronic kidney disease, stage III (moderate);Charly hill w cr Name Collection Type:: Clean-Voided Midstream Performed By: #### P TH, RENAL, MG, [id number], URIC, CBCNO, JAVIER, FE and TIBC #### [address] WBC,Urine Innumerable High 0-4 [facility] Comment on above: Order Comment: Reaso n for Exam Chronic kidney disease, stage III (moderate);Charly hill w cr Name Collection Type:: Clean-Voided Midstream Performed By: #### P TH, RENAL, MG, [id number], URIC, CBCNO, JAVIER, FE and TIBC #### [address] Epithelial cells.squamous [# /area] in Urine sediment by Automated countOrdered By: Theo Thakkar on 02-25-2024 Epithelial cells.squamous Auto (Urine sed) [#/Area] 1-2 [HPF] 0-2 [facility] Erythrocyte distribution wid th [Ratio] by Automated countOrdered By: Theo Thakkar on 02-25-2024 Erythrocyte distribution width (RBC) [Ratio] 15.0 % High 12.0-14.8 [facility] Comment on above: Order Comment: Reaso n for Exam Chronic kidney disease, stage III (moderate);Charly hy kid w cr Performed By: #### C BCNO #### [facility] [address] Erythrocytes [#/area] in Uri ne sediment by Automated countOrdered By: Theo Thakkar on 02-25-2024 RBC Auto (Urine sed) [#/Area] 10-19 [HPF] High 0-4 [facility] Erythrocytes [#/volume] in B lood by Automated countOrdered By: Theo Thakkar on 02-25-2024 RBC (Bld) [#/Vol] 4.02 10*6/uL Normal 3.90-5.60 [facility] Comment on above: Order Comment: Reaso n for Exam Chronic kidney disease, stage III (moderate);Charly hy kid w cr Performed By: #### C BCNO #### [facility] [address] [place] [address] Glucose [Mass/volume] in Ser um or PlasmaOrdered By: Theo Thakkar on 02-25-2024 Glucose [Mass/Vol] 95 mg/dL Normal 70-100 [facility] Comment on above: ADA recommended refe rence rangeRandom Glucose Reference Range is dependent on time and content of last meal. Glucose of more than 200 mg/dL in a nonstressed, ambulatory subject supports the diagnosis of Diabetes Mellitus. Order Comment: Reaso n for Exam Chronic kidney disease, stage III (moderate);Charly hy kid w cr Result Comment: [place] om Glucose Reference Range is dependent on time and content of last meal. Glucose of more than 200 mg/dL in a nonstressed, ambulatory subject supports the diagnosis of Diabetes Mellitus. ADA recommended reference range Performed By: #### P TH, RENAL, MG, [id number], URIC, CBCNO, JAVIER, FE and TIBC #### [address] Glucose [Mass/volume] in Uri ne by Test stripOrdered By: Theo Thakkar on 02-25-2024 Glucose Test strip (U) [Mass/Vol] Normal mg/dL Normal [facility] Granular casts [#/area] in U rine by Computer assisted methodOrdered By: Theo Thakkar on 02-25-2024 Granular casts Computer assisted (U) [#/Area] 5-9 [LPF] High None Seen [facility] Hematocrit [Volume Fraction] of Blood by Automated countOrdered By: Theo Thakkar on 02-25-2024 Hematocrit (Bld) [Volume fraction] 34.7 % Low 38.8-50.0 [facility] Comment on above: Order Comment: Reaso n for Exam Chronic kidney disease, stage III (moderate);Charly hy kid w cr Performed By: #### C BCNO #### [address] Hemoglobin Test strip Ql (U) Ordered By: Theo Thakkar on 02-25-2024 Hemoglobin Ql (U) 1+ High Negative [facility] Hemoglobin [Mass/volume] in BloodOrdered By: Theo Thakkar on 02-25-2024 Hemoglobin (Bld) [Mass/Vol] 11.4 g/dL Low 13.0-17.0 [facility] Comment on above: Order Comment: Reaso n for Exam Chronic kidney disease, stage III (moderate);Charly hy kid w cr Performed By: #### C BCNO #### [address] Hemogram CBC Without Diffon 02-25-2024 Mean Corpuscular HGB Conc 32.9 g/dL Normal 32.5-35.6 [facility] Comment on above: Order Comment: Reaso n for Exam Chronic kidney disease, stage III (moderate);Charly hy kid w cr Performed By: #### C BCNO #### [address] WBC (Bld) [#/Vol] 6.9 10*3/uL Normal 4.1-10.5 [facility] Comment on above: Order Comment: Reaso n for Exam Chronic kidney disease, stage III (moderate);Charly palomo cr Performed By: #### C BCNO #### [facility] [address] [place] [address] [place] Hyaline casts [#/area] in Ur ine sediment by Automated countOrdered By: Theo Vivian on 02-25-2024 Hyaline casts Auto (Urine sed) [#/Area] 20-49 [LPF] High 0-8 [facility] Ketones [Presence] in Urine by Test stripOrdered By: Theo Vivian on 02-25-2024 Ketones Ql (U) Negative Normal Negative [facility] Comment on above: Order Comment: Reaso n for Exam Chronic kidney disease, stage III (moderate);Charly palomo cr Name Collection Type:: Clean-Voided Midstream Performed By: #### P TH, RENAL, MG, [id number], URIC, CBCNO, JAVIER, FE and TIBC #### [facility] [address] [place] [address] [place] Leukocyte clumps [Presence] in Urine by AutomatedOrdered By: Theo Vivian on 02-25-2024 Leukocyte clumps Auto Ql (U) Many [LPF] High None Seen [facility] Leukocyte esterase [Presence ] in Urine by Test stripOrdered By: Theo Vivian on 02-25-2024 Leukocyte esterase Test strip Ql (U) 4+ High Negative [facility] Comment on above: Order Comment: Reaso n for Exam Chronic kidney disease, stage III (moderate);Charly palomo cr Name Collection Type:: Clean-Voided Midstream Performed By: #### P TH, RENAL, MG, [id number], URIC, CBCNO, JAVIER, FE and TIBC #### [facility] [address] [place] [address] [place] Leukocytes [#/area] in Urine sediment by Automated countOrdered By: Theo Vivian on 02-25-2024 WBC Auto (Urine sed) [#/Area] Innumerable [HPF] High 0-4 [facility] Leukocytes [#/volume] correc diana for nucleated erythrocytes in Blood by Automated counOrdered By: Theo Thakkar on 02-25-2024 WBC corrected for nucl RBC Auto (Bld) [#/Vol] 6.9 10*3/uL 4.1-10.5 [facility] MCH [Entitic mass] by Automa diana countOrdered By: Theo Thakkar on 02-25-2024 MCH (RBC) [Entitic mass] 28.4 pg Normal 27.5-35.2 [facility] Comment on above: Order Comment: Reaso n for Exam Chronic kidney disease, stage III (moderate);Charly hy kid w cr Performed By: #### C BCNO #### [facility] [address] [place] [address] MCHC Auto (RBC) [Mass/Vol]Or dered By: Theo Thakkar on 02-25-2024 MCHC (RBC) [Mass/Vol] 32.9 g/dL 32.5-35.6 [facility] MCV [Entitic volume] by Auto mated countOrdered By: Theo Thakkar on 02-25-2024 MCV (RBC) [Entitic vol] 86.3 fL Normal 83.5-101 [facility] Comment on above: Order Comment: Reaso n for Exam Chronic kidney disease, stage III (moderate);Charly hy kid w cr Performed By: #### C BCNO #### [facility] [address] [place] [address] Magnesium [Mass/volume] in S jaime or PlasmaOrdered By: Theo Thakkar on 02-25-2024 Magnesium [Mass/Vol] 2.2 mg/dL Normal 1.9-2.7 [facility] Comment on above: Order Comment: Reaso n for Exam Chronic kidney disease, stage III (moderate);Charly hy kid w cr Performed By: #### P TH, RENAL, MG, [id number], URIC, CBCNO, JAVIER, FE and TIBC #### [facility] [address] [place] [address] Mucus [Presence] in Urine by AutomatedOrdered By: Theo Thakkar on 02-25-2024 Mucus Auto Ql (U) Rare [LPF] [facility] Nitrite Test strip Ql (U)Ord ered By: Theo Thakkar on 02-25-2024 Nitrite Ql (U) Negative Negative [facility] No Panel InformationOrdered By: Theo Thakkar on 02-25-2024 Estimated GFR (CKD-EPI) 41.634 mL/Min [facility] Creatinine Clearance (Chem N/A [facility] Parathyrin.intact [Mass/volu me] in Serum or PlasmaOrdered By: Theo Thakkar on 02-25-2024 Parathyrin.intact [Mass/Vol] 97.8 pg/mL High [facility] Parathyroid Hormone Intacton 02-25-2024 Parathyroid Hormone Intact 97.8 pg/mL High [facility] Comment on above: Order Comment: Reaso n for Exam Chronic kidney disease, stage III (moderate);Charly hill w cr Result Comment: PERF ORMED BY: [place] [address] PATHOLOGIST [employer] ANA HURT M.D. Performed By: #### P TH, RENAL, MG, [id number], URIC, CBCNO, JAVIER, FE and TIBC #### [facility] [address] Phosphate [Mass/volume] in S jaime or PlasmaOrdered By: Theo Thakkar on 02-25-2024 Phosphate [Mass/Vol] 3.6 mg/dL Normal 2.5-4.5 [facility] Comment on above: Order Comment: Reaso n for Exam Chronic kidney disease, stage III (moderate);Charly hy kid w cr Performed By: #### P TH, RENAL, MG, [id number], URIC, CBCNO, JAVIER, FE and TIBC #### [facility] [address] [place] [address] [place] Platelet mean volume [Entiti c volume] in Blood by Automated countOrdered By: Theo Thakkar on 02-25-2024 Platelet mean volume (Bld) [Entitic vol] 8.9 fL Normal 6.6-10.1 [facility] Comment on above: Order Comment: Reaso n for Exam Chronic kidney disease, stage III (moderate);Charly hy kid w cr Result Comment: PERF ORMED BY: [place] [address] PATHOLOGIST [employer] ANA HURT M.D. Performed By: #### C BCNO #### [facility] [address] [place] [address] Platelets [#/volume] in Bloo d by Automated countOrdered By: Theo Thakkar on 02-25-2024 Platelets (Bld) [#/Vol] 305 10*3/uL Normal 150-450 [facility] Comment on above: Order Comment: Reaso n for Exam Chronic kidney disease, stage III (moderate);Charly tyron kid w cr Performed By: #### C BCNO #### [address] Potassium [Moles/volume] in Serum or PlasmaOrdered By: Theo Thakkar on 02-25-2024 Potassium [Moles/Vol] 4.8 mmol/L Normal 3.5-5.1 [facility] Comment on above: Order Comment: Reaso n for Exam Chronic kidney disease, stage III (moderate);Charly hy kid w cr Performed By: #### P TH, RENAL, MG, [id number], URIC, CBCNO, JAVIER, FE and TIBC #### [address] Protein Creat Ratio Ur Rando mon 02-25-2024 Creatinine, Urine (Random) 173.00 mg/dL Normal [facility] Comment on above: Order Comment: Reaso n for Exam Chronic kidney disease, stage III (moderate);Charly hy kid w cr Result Comment: No r eference range established Performed By: #### P ROCRERAT #### [facility] [address] [place] [address] Urine Protein/Creatinine Ratio 786 mg/g{Cre} High 0-200 [facility] Comment on above: Order Comment: Reaso n for Exam Chronic kidney disease, stage III (moderate);Charly hy kid w cr Result Comment: PERF ORMED BY: [address] [place] [address] PATHOLOGIST [employer] ANA HURT M.D. Performed By: #### P ROCRERAT #### [place] [address] [place] Protein [Mass/volume] in Uri neOrdered By: Theo Vivian on 02-25-2024 Protein (U) [Mass/Vol] 136 mg/dL High 0-9 [facility] Comment on above: Order Comment: Reaso n for Exam Chronic kidney disease, stage III (moderate);Charly hy kid w cr Performed By: #### P ROCRERAT #### [place] [address] [place] Protein [Mass/volume] in Uri ne by Test stripOrdered By: Theo Vivian on 02-25-2024 Protein (U) [Mass/Vol] 100 mg/dL High Negative [facility] Comment on above: Order Comment: Reaso n for Exam Chronic kidney disease, stage III (moderate);Charly hy kid w cr Name Collection Type:: Clean-Voided Midstream Performed By: #### P TH, RENAL, MG, [id number], URIC, CBCNO, JAVIER, FE and TIBC #### [address] Renal Function Panelon 02-24 Albumin [Mass/Vol] 4.2 g/dL Normal 3.5-5.7 [facility] Comment on above: Order Comment: Reaso n for Exam Chronic kidney disease, stage III (moderate);Charly hy kid w cr Performed By: #### P TH, RENAL, MG, [id number], URIC, CBCNO, JAVIER, FE and TIBC #### [facility] [address] [place] [address] [place] GFR/1.73 sq M.predicted MDRD (S/P/Bld) [Vol rate/Area] 41.634 mL/min/{1.73_m2} Normal [facility] Comment on above: Order Comment: Reaso n for Exam Chronic kidney disease, stage III (moderate);Charly hy kid w cr Performed By: #### P TH, RENAL, MG, [id number], URIC, CBCNO, JAVIER, FE and TIBC #### [facility] [address] [place] [address] [place] Serum or plasma anion gap de terminationOrdered By: Theo Vivian on 02-25-2024 Anion gap [Moles/Vol] 11.9 mmol/L Normal 6.0-15.0 [facility] Comment on above: Order Comment: Reaso n for Exam Chronic kidney disease, stage III (moderate);Charly hy kid w cr Performed By: #### P TH, RENAL, MG, [id number], URIC, CBCNO, JAVIER, FE and TIBC #### [facility] [address] Sodium [Moles/volume] in Ser um or PlasmaOrdered By: Theo Vivian on 02-25-2024 Sodium [Moles/Vol] 137 mmol/L Normal 136-145 [facility] Comment on above: Order Comment: Reaso n for Exam Chronic kidney disease, stage III (moderate);Charly hy kid w cr Performed By: #### P TH, RENAL, MG, [id number], URIC, CBCNO, JAVIER, FE and TIBC #### [facility] [address] Specific gravity Test strip (U) [Rel density]Ordered By: Theo Joycer on 02-25-2024 Specific gravity (U) [Rel density] 1.018 1.001-1.03 0 [facility] Urate [Mass/volume] in Serum or PlasmaOrdered By: Theo Vivian on 02-25-2024 Urate [Mass/Vol] 5.7 mg/dL Normal 4.4-7.6 [facility] Comment on above: Order Comment: Reaso n for Exam Chronic kidney disease, stage III (moderate);Charly hy kid w cr Performed By: #### P TH, RENAL, MG, [id number], URIC, CBCNO, JAVIER, FE and TIBC #### [facility] [address] Urea nitrogen [Mass/volume] in Serum or PlasmaOrdered By: Theo Vivian on 02-25-2024 Urea nitrogen [Mass/Vol] 23 mg/dL Normal 7-25 [facility] Comment on above: Order Comment: Neftalio n for Exam Chronic kidney disease, stage III (moderate);Charly hill w cr Performed By: #### P TH, RENAL, MG, [id number], URIC, CBCNO, JAVIER, FE and TIBC #### [facility] [address] Urine Cultureon 02-25-2024 Bacteria identified Cx Nom (U) ORGANISM: Staphylococcus aureus (O:STAAUR) [place] Count >100,000 Aerobic ROSLYN Charge (PCMIC38) SUSCEPTIBILITY [...] RESISTANT TO ALL B-LACTAM DRUGS. PERFORMED BY: [place] [address] PATHOLOGIST [employer] ANA HURT M.D. Normal [facility] Comment on above: Performed By: #### P TH, RENAL, MG, [id number], URIC, CBCNO, JAVIER, FE and TIBC #### [facility] [address] [place] [id number] [facility] Urine appearanceOrdered By: Theo Thakkar on 02-25-2024 Appearance (U) Cloudy Critically abnormal Clear [facility] Comment on above: Order Comment: Reaso n for Exam Chronic kidney disease, stage III (moderate);Charly tyron kid w cr Name Collection Type:: Clean-Voided Midstream Performed By: #### P TH, RENAL, MG, [id number], URIC, CBCNO, JAVIER, FE and TIBC #### [facility] [address] [place] [id number] [facility] Urine culture routineOrdered By: Theo Vivian on 02-25-2024 Bacteria identified Cx Nom (U) Staphylococcus aureus Abnormal [facility] Urine protein/creatinine rat ioOrdered By: Theo Vivian on 02-25-2024 Protein/Creatinine (U) [Ratio] 786 mg/g{Cre} High 0-200 [facility] Urobilinogen Test strip (U) [Mass/Vol]Ordered By: Theo Herrmanndir on 02-25-2024 Urobilinogen (U) [Mass/Vol] Normal mg/dL Normal [facility] Vitamin D 25 Hydroxy Totalon 02-25-2024 Vitamin D 25 Hydroxy Total 60.3 ng/mL Normal 30-100 [facility] Comment on above: Order Comment: Reaso n for Exam Chronic kidney disease, stage III (moderate);Charly tyron kid w cr Result Comment: [place] MIN D STATUS 25([place])VITAMIN D RANGE (ng/mL) Deficient <20 Insufficient 20 to <30 Sufficient 30 to 100 Reference: Grecia MF,Wayne NC, John VILLEGAS, et al. Evaluation,treatment, and prevention of vitamin D deficiency; an Endocrine Society clinical practice guideline. JCEM. 2010; 96(7):1911-30. PERFORMED BY: [facility] [address] [place] [address] PATHOLOGIST [employer] ANA HURT M.D. Performed By: #### P TH, RENAL, MG, [id number], URIC, CBCNO, JAVIER, FE and TIBC #### [facility] [address] [place] [id number] [facility] Vitamin D+Metabolites [Mass/ volume] in Serum or PlasmaOrdered By: Theo Vivian on 02-25-2024 Vitamin D+Metabolites [Mass/Vol] 60.3 ng/mL 30-100 [facility] Comment on above: VITAMIN D STATUS 25( [place])VITAMIN D RANGE (ng/mL) Deficient <20 Insufficient 20 to <30Sufficient 30 to 100Reference: Grecia MF,Wayne PALMER, John VILLEGAS, et al. Evaluation,treatment, and prevention of vitamin D deficiency; an Endocrine Society clinical practice guideline. JCEM. 2010; 96(7):1911-30. pH of Urine by Test stripOrd ered By: Theo Thakkar on 02-25-2024 pH (U) 6.0 [pH] Normal 5.0-9.0 [facility] Comment on above: Order Comment: Theodore n for Exam Chronic kidney disease, stage III (moderate);Charly hill w cr Name Collection Type:: Clean-Voided Midstream Performed By: #### P TH, RENAL, MG, [id number], URIC, CBCNO, JAVIER, FE and TIBC #### [facility] [address] Office Visiton 01-12-2024 Follow-up visit [id number] BroussardDexterlonny kaufman 1945 M Date Provider Department Center 01/12/2024 JOELLEN STANTON [facility] SURG Second Ca Family History Problem Relation Age of Onset Hypertension Mother Diabetes Father Family Status - Relation Status Age at Mother Father Level of Service:91828 [place] POSTOP FOLLOW UP VISIT RELATED TO ORIGINAL PX Reason for Visit and Comments: Post-op [483] - Patient is here for a 4-[address] madera [facility] Office Visiton 12-02-2023 Follow-up visit [id number] BoboDianne ld 1945 M Date Provider Department Center 12/02/2023 426-VASILE MADERA DCC ONC DCC Family History Problem Relation Age of Onset Hypertension Mother Diabetes Father Family Status - Relation Status Age at Mother Father Level of Service:45900 [place] POSTOP FOLLOW UP VISIT RELATED TO ORIGINAL PX Reason for Visit and Comments: Post-op [483] Normal [facility] BASIC METABOLIC PANELon 06- Anion gap [Moles/Vol] 12 mmol/L Normal 7-20 [facility] Comment on above: Performed By: #### L [id number] #### [facility] ([facility]) [address] [place] [address] Calcium [Mass/Vol] 9.3 mg/dL Normal 8.6-10.3 [facility] Comment on above: Performed By: #### L [id number] #### [facility] ([facility]) [address] [place] [address] Chloride [Moles/Vol] 104 mmol/L Normal 98-107 [facility] Comment on above: Performed By: #### L [id number] #### [facility] ([facility]) [address] [place] [address] CO2 [Moles/Vol] 23 mmol/L Normal 21-31 [facility] Comment on above: Performed By: #### L [id number] #### [facility] ([facility]) [address] [place] [address] Creatinine [Mass/Vol] 1.51 mg/dL High 0.70-1.30 [facility] Comment on above: Performed By: #### L [id number] #### [facility] ([facility]) [address] [place] [address] GLOMERULAR FILTRATION RATE ML/MIN/1.73 SQ M.PREDICTED 47.0 mL/min/1.73m*2 Low >60.0 [facility] Comment on above: Result Comment: [facility]???s estimated glomerular filtration rate (eGFR) will [...] group of individuals. Performed By: #### L [id number] #### [facility]) [address] [place] [address] Glucose [Mass/Vol] 128 mg/dL High 70-100 [facility] Comment on above: Performed By: #### L [id number] #### [facility] [address] [place] [address] Potassium [Moles/Vol] 4.6 mmol/L Normal 3.5-5.1 [facility] Comment on above: Performed By: #### L [id number] #### [facility] [address] [place] [address] Sodium [Moles/Vol] 134 mmol/L Low 136-145 [facility] Comment on above: Performed By: #### L [id number] #### [facility] [address] [place] [address] Urea nitrogen [Mass/Vol] 25 mg/dL Normal 7-25 [facility] Comment on above: Performed By: #### L [id number] #### [facility] ([facility]) [address] [place] [address] UREA NITROGEN/CREATININE (MASS RATIO) IN SER/PLAS 16.6 Normal [facility] Comment on above: Performed By: #### L [id number] #### [facility] [address] [place] [address] CBCon 11-18-2023 Erythrocyte distribution width (RBC) [Ratio] 13.4 % Normal 11.5-15.0 [facility] Comment on above: Performed By: #### L [id number] #### [facility] [address] [place] [address] ERYTHROCYTE MEAN CORPUSCULAR HEMOGLOBIN CONCENTRATION (G/DL) BY AUTOMATED 33.3 g/dL Normal 32.0-35.0 [facility] Comment on above: Performed By: #### L [id number] #### [facility] ([facility]) [address] [place] [address] Hematocrit (Bld) [Volume fraction] 35.1 % Low 39.0-55.0 [facility] Comment on above: Performed By: #### L [id number] #### [facility] ([facility]) [address] [place] [address] Hemoglobin (Bld) [Mass/Vol] 11.7 g/dL Low 13.0-17.0 [facility] Comment on above: Performed By: #### L [id number] #### [facility] ([facility]) [address] [place] [address] MCH (RBC) [Entitic mass] 30.5 pg Normal 27.0-33.0 [facility] Comment on above: Performed By: #### L [id number] #### [facility] ([facility]) [address] [place] [address] MCV (RBC) [Entitic vol] 91.6 fL Normal 82.0-98.0 [facility] Comment on above: Performed By: #### L [id number] #### [facility] ([facility]) [address] [place] [address] PLATELETS (10*3/UL) IN BLOOD AUTOMATED COUNT 270 10*3/uL Normal 150-400 [facility] Comment on above: Performed By: #### L [id number] #### [facility] ([facility]) [address] [place] [address] RBC (Bld) [#/Vol] 3.83 10*6/uL Low 4.20-5.70 [facility] Comment on above: Performed By: #### L [id number] #### [facility] ([facility]) [address] [place] [address] WBC (Bld) [#/Vol] 14.40 10*3/uL High 4.00-10.60 [facility] Comment on above: Performed By: #### L [id number] #### [facility] [address] [place] [address] DSon 11-18-2023 DS Admission Admitted 11/17/2023 for [...] Commonly known as: Lioresal ergocalciferol 1.25 MG (25098 Units) capsule Commonly known as: Vitamin D-2 gabapentin 100 mg capsule Commonly known as: Neurontin pravastatin 10 mg tablet Commonly known as: Pravachol valsartan 80 mg tablet Commonly known as: Diovan varenicline 0.5 mg tablet Commonly known as: Chantix STOP taking these medications HYDROcodone-acetaminophen 7.5-325 mg tablet Commonly known as: Marion Where to Get Your Medications These medications were sent to [id number] - [place], [place] - [address] [place] [address] oxyCODONE 5 mg immediate release tablet tiZANidine [...] Dr. Madera in about 2 weeks, Call [phone] (Joellen) or [phone] (Dr. Madera) if not already scheduled, Vasile Madera MD Diet Continue on the same type of diet and foods as you were eating before your admission. Drink plenty of water. Allergies Ezetimibe and Wdprqpc-jak-kad reductase inhibitors Hospital Course Patient was admitted [...] is performed under the ED CLIA certificate #[id number]. Nutrition Screen Issues Requiring Follow-Up none Outpatient Follow-Up No future appointments. Test Results Pending At Discharge Vasile Madera MD [facility] 30on 11-17-2023 30 The patient is Moder ately Stable - Low risk of patient condition declining or worsening The patient's goals for the shift include pain control The clinical goals for the shift include comfort Problem: Pain - Adult Goal: Verbalizes/displays adequate comfort level or baseline comfort level Outcome: Progressing Problem: Safety - Adult Goal: Free from fall injury Outcome: Progressing Normal [facility] HPon 11-17-2023 HP H&P reviewed. The santiago contreras was examined and there are no changes to the H&P. Bilateral lumbar decompression - for synovial cyst and for lateral recess stenosis. 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] * Lumbar stenosis with neurogenic claudication [M48.062] Procedures L3-L4 Synovial Cyst Resection, Left L4-L5 Lateral Recess Decompression, and 22760 - NC LANDEROS FACETECTOMY & FORAMOTOMY 1 VRT SGM LUMBAR L5 Foraminal Decompression 76206 - NC LANDEROS FACETECTOMY&FORAMOT 1 VRT SGM EA ADDL SGM NC LANDEROS BX/EXC ISPI JUAN JOSE IDRL XMED LUMBAR [68345] Right side L3 hemilaminectomy and resection of [...] Drains: * None in log * Staff: Minibus Driver: Kd Lagos RN Relief Scrub: Silke Henry CST Scrub Person: Breanne Dahm, MAKE UP OPERATOR HELPER Supervisor Painting Department: Bernie Jimenes RN Indications: Yesenia Broussard is [...] scrubbed for the entire procedure. 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] * Lumbar stenosis with neurogenic claudication [M48.062] Procedures L3-L4 Synovial Cyst Resection, Left L4-L5 Lateral Recess Decompression, and 75325 - NC LANDEROS FACETECTOMY & FORAMOTOMY 1 VRT SGM LUMBAR L5 Foraminal Decompression 35217 - NC LANDEROS FACETECTOMY&FORAMOT 1 VRT SGM EA ADDL SGM NC LANDEROS BX/EXC ISPI JUAN JOSE IDRL XMED LUMBAR [87350] Right side L3 hemilaminectomy and resection of [...] Drains: * None in log * Staff: Minibus Driver: Kd Lagos RN Relief Scrub: Silke Henry CST Scrub Person: Breanne White CST Supervisor Painting Department: Bernie Jimenes RN Indications: Yesenia Broussard is [...] with Bovie (more content not included)... Normal [facility] POCT GLUCOSE METER UNSOLICIT ED RESULTSon 11-17-2023 Glucose [Mass/Vol] 80 mg/dL Normal 70-105 [facility] Comment on above: Order Comment: Waive d Testing in the ED is performed under the ED CLIA certificate #[id number]. Result Comment: epaw low Performed By: #### L [id number] #### [facility] ([facility]) [address] [place] [address] Orders Onlyon 11-13-2023 Orders Only [id number] Dianne Broussard ld 1945 M Date Provider Department Center 11/13/2023 IMAN BURNETTE [facility] Family History Problem Relation Age of Onset Hypertension Mother Diabetes Father Family Status - Relation Status Age at Mother Father Normal [facility] Orders Onlyon 11-10-2023 Orders Only [id number] Dianne Broussard ld 1945 M Date Provider Department Center 11/10/2023 TOM AGUIAR [facility] C Family History Problem Relation Age of Onset Hypertension Mother Diabetes Father Family Status - Relation Status Age at Mother Father Normal [facility] [id number] 11-06-2023 [id number] SURGERY DATE:11/16 Medications to take Morning of [...] THE FOLLOWING ARE NOT AVAILABLE: An adult tanker driver over the age of 18, that [...] lenses. Do not wear perfume, make-up, nail belarusian, or lotions on the day of your [...] need to make any changes, please call [phone]. Notify your surgeon if you develop any illness such as a cold, cough, fever, sore throat or vomiting between now and your surgery. Thank you for entrusting us with your care. [facility] Surgical Services Team Normal [facility] APTTon 11-05-2023 ACTIVATED PARTIAL THROMBOPLASTIN TIME IN PPP BY COAGULATION ASSAY 24.3 Seconds Low 25.0-35.0 [facility] Comment on above: Result Comment: Clin ical significance of the APTT is questionable in the presence of heparin. Performed By: #### L [id number] #### [facility] ([facility]) [address] [place] [address] BASIC METABOLIC PANELon Anion gap [Moles/Vol] 14 mmol/L Normal 7-20 [facility] Comment on above: Performed By: #### L [id number] #### [facility] ([facility]) [address] [place] [address] Calcium [Mass/Vol] 9.6 mg/dL Normal 8.6-10.3 [facility] Comment on above: Performed By: #### L [id number] #### [facility] ([facility]) [address] [place] [address] Chloride [Moles/Vol] 105 mmol/L Normal 98-107 [facility] Comment on above: Performed By: #### L [id number] #### [facility] ([facility]) [address] [place] [address] CO2 [Moles/Vol] 23 mmol/L Normal 21-31 [facility] Comment on above: Performed By: #### L [id number] #### [facility] ([facility]) [address] [place] [address] Creatinine [Mass/Vol] 1.93 mg/dL High 0.70-1.30 [facility] Comment on above: Performed By: #### L [id number] #### [facility] ([facility]) [address] [place] [address] GLOMERULAR FILTRATION RATE ML/MIN/1.73 SQ M.PREDICTED 35.0 mL/min/1.73m*2 Low >60.0 [facility] Comment on above: Result Comment: The [facility]???s estimated glomerular filtration rate (eGFR) will [...] group of individuals. Performed By: #### L [id number] #### [facility] ([facility]) [address] [place] [address] Glucose [Mass/Vol] 102 mg/dL High 70-100 [facility] Comment on above: Performed By: #### L [id number] #### [facility] ([facility]) [address] [place] [address] Potassium [Moles/Vol] 4.8 mmol/L Normal 3.5-5.1 [facility] Comment on above: Performed By: #### L [id number] #### [facility] ([facility]) [address] [place] [address] Sodium [Moles/Vol] 137 mmol/L Normal 136-145 [facility] Comment on above: Performed By: #### L [id number] #### [facility] ([facility]) [address] [place] [address] Urea nitrogen [Mass/Vol] 30 mg/dL High 7-25 [facility] Comment on above: Performed By: #### L [id number] #### [facility] ([facility]) [address] [place] [address] UREA NITROGEN/CREATININE (MASS RATIO) IN SER/PLAS 15.5 Normal [facility] Comment on above: Performed By: #### L [id number] #### [facility] ([facility]) [address] [place] [address] CBC WITH AUTO DIFFERENTIALon 11-05-2023 Basophils (Bld) [#/Vol] 0.03 10*3/uL Normal 0.00-0.20 [facility] Comment on above: Performed By: #### L [id number] #### [facility] ([facility]) [address] [place] [address] Basophils/100 WBC (Bld) 0.3 % Normal 0.0-1.0 [facility] Comment on above: Performed By: #### L [id number] #### [facility] ([facility]) [address] [place] [address] Eosinophils (Bld) [#/Vol] 0.13 10*3/uL Normal 0.00-0.50 [facility] Comment on above: Performed By: #### L [id number] #### [facility] [address] [place] [address] Eosinophils/100 WBC (Bld) 1.3 % Normal 0.0-6.0 [facility] Comment on above: Performed By: #### L [id number] #### [facility] [address] [place] [address] Erythrocyte distribution width (RBC) [Ratio] 13.7 % Normal 11.5-15.0 [facility] Comment on above: Performed By: #### L [id number] #### [facility] ([facility]) [address] [place] [address] ERYTHROCYTE MEAN CORPUSCULAR HEMOGLOBIN CONCENTRATION (G/DL) BY AUTOMATED 32.0 g/dL Normal 32.0-35.0 [facility] Comment on above: Performed By: #### L [id number] #### [facility] [address] [place] [address] Hematocrit (Bld) [Volume fraction] 40.9 % Normal 39.0-55.0 [facility] Comment on above: Performed By: #### L [id number] #### [facility] ([facility]) [address] [place] [address] Hemoglobin (Bld) [Mass/Vol] 13.1 g/dL Normal 13.0-17.0 [facility] Comment on above: Performed By: #### L [id number] #### [facility] [address] [place] [address] Immature granulocytes (Bld) [#/Vol] 0.03 10*3/uL Normal 0.00-0.20 [facility] Comment on above: Performed By: #### L [id number] #### [facility] ([facility]) [address] [place] [address] Immature granulocytes/100 WBC (Bld) 0.3 % Normal 0.0-1.0 [facility] Comment on above: Performed By: #### L [id number] #### [facility] ([facility]) [address] [place] [address] Lymphocytes (Bld) [#/Vol] 1.12 10*3/uL Low 1.20-4.00 [facility] Comment on above: Performed By: #### L [id number] #### [facility] ([facility]) [address] [place] [address] Lymphocytes/100 WBC (Bld) 11.2 % Low 20.0-45.0 [facility] Comment on above: Performed By: #### L [id number] #### [facility] ([facility]) [address] [place] [address] MCH (RBC) [Entitic mass] 29.8 pg Normal 27.0-33.0 [facility] Comment on above: Performed By: #### L [id number] #### [facility] [address] [place] [address] MCV (RBC) [Entitic vol] 93.2 fL Normal 82.0-98.0 [facility] Comment on above: Performed By: #### L [id number] #### [facility] [address] [place] [address] Monocytes (Bld) [#/Vol] 0.85 10*3/uL Normal 0.10-1.00 [facility] Comment on above: Performed By: #### L [id number] #### [facility] ([facility]) [address] [address] Monocytes/100 WBC (Bld) 8.5 % Normal 5.0-12.0 [facility] Comment on above: Performed By: #### L [id number] #### [facility] ([facility]) [address] [place] [address] Neutrophils (Bld) [#/Vol] 7.85 10*3/uL High 1.60-7.60 [facility] Comment on above: Performed By: #### L [id number] #### [facility] ([facility]) [address] [address] Neutrophils/100 WBC (Bld) 78.4 % High 40.0-72.0 [facility] Comment on above: Performed By: #### L [id number] #### [facility] ([facility]) [address] [address] NRBC (PER 100 WBCS) BY AUTOMATED COUNT 0.0 % Normal 0 [facility] Comment on above: Performed By: #### L [id number] #### [facility] ([facility]) [address] [address] PLATELETS (10*3/UL) IN BLOOD AUTOMATED COUNT 321 10*3/uL Normal 150-400 [facility] Comment on above: Performed By: #### L [id number] #### [facility] ([facility]) [address] [address] RBC (Bld) [#/Vol] 4.39 10*6/uL Normal 4.20-5.70 [facility] Comment on above: Performed By: #### L [id number] #### [facility] ([facility]) [address] [place] [address] WBC (Bld) [#/Vol] 10.01 10*3/uL Normal 4.00-10.60 [facility] Comment on above: Performed By: #### L [id number] #### [facility] ([facility]) [address] [place] [address] Consulton 11-05-2023 Consult [id number] Dianne Broussard 1945 M Date Provider Department Center 11/05/2023 JOELLEN STANTON [facility] SURG Second Fl Family History Problem Relation Age of Onset Hypertension Mother Diabetes Father Family Status - Relation Status Age at Mother Father Level of Service:18744 NC OFFICE/OUTPATIENT ESTABLISHED MOD MDM 30 MIN Reason for Visit and Comments: Pre-op Exam [[id number]] - pre op sugery 11/16 L3-4 synovial cyst resection, L4-5 left side lateral recess decompression and right side L5 foraminal decompression Normal [facility] HPon 11-05-2023 HP SUBJECTIVE: Chief complaint: [...] He saw pain management and is taking Marion, which helps some. Did physical therapy in [...] vascular disease) (CMS/HCC) left leg stent Stroke ([facility] 2012 Past Surgical History: Procedure [...] , Rfl: ergocalciferol (Vitamin D-2) 1.25 MG (77952 Units) capsule, Take 1,250 mcg by mouth 1 (one) time per week., Disp: , Rfl: gabapentin (Neurontin) 100 mg capsule, Take 100 mg by mouth at bedtime., Disp: , Rfl: HYDROcodone-acetaminophen (Marion) 7.5-325 mg tablet, TAKE 1 TABLET BY [...] Reactions Ezetimibe GI intolerance Other reaction(s): Nausea/vomiting Azsueck-Fat-Wzg Reductase Inhibitors Other Muscle/Joint Pain Other Reaction(s): [...] Hip flexor (more content not included)... Normal [facility] Labon 11-05-2023 Lab [id number] Dianne Broussard 1945 Date Provider Department Center 11/05/20235-[facility] OPD LAB RESOURCE [facility] OPD AL Medical C Family History Problem Relation Age of Onset Hypertension Mother Diabetes Father Family Status - Relation Status Age at Mother Father Normal [facility] MRSA/MSSA DNA NASALon 2023 MRSA DNA Negative Normal Negative [facility] Comment on above: Order Comment: Testi [...] preclude nasal colonization. Performed By: #### L [id number] #### [facility] ([facility]) [address] [place] [address] MSSA DNA Negative Normal Negative [facility] Comment on above: Order Comment: Amelia silva methodology is an automated qualitative in vitro [...] preclude nasal colonization. Performed By: #### L [id number] #### [facility] ([facility]) [address] [place] [address] PROTIME-INRon 11-05-2023 INR IN PPP BY COAGULATION ASSAY 1.01 Normal 0.90-1.10 [facility] Comment on above: Result Comment: ACCC [...] 1995;108:[id number]. Performed By: #### L [id number] #### [facility] ([facility]) [address] [place] [address] PROTHROMBIN TIME (PT) IN PPP BY COAGULATION ASSAY 13.3 Seconds Normal 12.3-14.8 [facility] Comment on above: Performed By: #### L [id number] #### [facility] ([facility]) [address] [place] [address] TYPE AND SCREENon 11-05-2023 AB SCREEN Negative Normal [facility] Comment on above: Performed By: #### L [id number] #### [facility] ([facility]) [address] [place] [address] ABO group Nom (Bld) A Normal [facility] Comment on above: Performed By: #### L [id number] #### [facility] ([facility]) [address] [place] [address] RH TYPE IN BLOOD Positive Normal [facility] Comment on above: Performed By: #### L [id number] #### [facility] ([facility]) [address] [place] [address] Lab Reportson 10-04-2023 Lab Reports [id number] Normal [facility] Alanine aminotransferase [En zymatic activity/volume] in Serum or PlasmaOrdered By: Shaikh Dotty on 10-01-2023 ALT [Catalytic activity/Vol] 13 U/L 7-52 [facility] Albumin [Mass/volume] in Ser um or Plasma by Bromocresol green (BCG) dye binding methoOrdered By: Shaikh Dotty on 10-01-2023 Albumin BCG dye [Mass/Vol] 4.2 g/dL 3.5-5.7 [facility] Alkaline phosphatase [Enzyma tic activity/volume] in Serum or PlasmaOrdered By: Shaikh Dotty on 10-01-2023 ALP [Catalytic activity/Vol] 58 U/L 34-104 [facility] Aspartate aminotransferase [ Enzymatic activity/volume] in Serum or PlasmaOrdered By: Shaikh Dotty on 10-01-2023 AST [Catalytic activity/Vol] 13 U/L 13-39 [facility] Basophils Auto (Bld) [#/Vol] Ordered By: Shaikh Dotty on 10-01-2023 Basophils (Bld) [#/Vol] 0.0 10*3/uL 0.0-0.2 [facility] Basophils/100 WBC Auto (Bld) Ordered By: Shaikh Dotty on 10-01-2023 Basophils/100 WBC (Bld) 0.4 % . [facility] Bilirubin.total [Mass/volume ] in Serum or PlasmaOrdered By: Shaikh Dotty on 10-01-2023 Bilirubin [Mass/Vol] 0.3 mg/dL 0.3-1.0 [facility] Calcium [Mass/volume] in Ser um or PlasmaOrdered By: Shaikh Dotty on 10-01-2023 Calcium [Mass/Vol] 9.4 mg/dL 8.6-10.3 [facility] Carbon dioxide, total [Moles /volume] in Serum or PlasmaOrdered By: Shaikh Dotty on 10-01-2023 CO2 [Moles/Vol] 27.0 mmol/L 21.0-31.0 [facility] Chloride [Moles/volume] in S jaime or PlasmaOrdered By: Shaikh Dotty on 10-01-2023 Chloride [Moles/Vol] 108 mmol/L 98-107 [facility] Cholesterol [Mass/volume] in Serum or PlasmaOrdered By: Shaikh Dotty on 10-01-2023 Cholesterol [Mass/Vol] 135 mg/dL 140-200 [facility] Comment on above: Chol less than 200 m g/dl low riskChol 201-239 mg/dl borderline riskChol 240 mg/dl and greater high risk Cholesterol in LDL Calc [Mas s/Vol]Ordered By: Shaikh Dotty on 10-01-2023 Cholesterol in LDL [Mass/Vol] 81 mg/dL 0-100 [facility] Comment on above: LDL ATP III CLASSIFI CATIONLDL less than 100 mg/dL OptimalLDL 100-129 mg/dL Near or above optimalLDL 130-159 mg/dL Borderline highLDL 160-189 mg/dL HighLDL greater than 189 mg/dL Very high Cholesterol in VLDL Calc [Ma ss/Vol]Ordered By: Shaikh Dotty on 10-01-2023 Cholesterol in VLDL [Mass/Vol] 16 mg/dL [facility] Creatinine [Mass/volume] in Serum or PlasmaOrdered By: Shaikh Dotty on 10-01-2023 Creatinine [Mass/Vol] 1.89 mg/dL 0.70-1.30 [facility] Creatinine [Mass/volume] in UrineOrdered By: Shaikh Dotty on 10-01-2023 Creatinine (U) [Mass/Vol] 164.0 mg/dL [facility] Comment on above: No reference range e stablished Eosinophils Auto (Bld) [#/Vo l]Ordered By: Shaikh Dotty on 10-01-2023 Eosinophils (Bld) [#/Vol] 0.2 10*3/uL 0.0-0.45 [facility] Eosinophils/100 WBC Auto (Bl d)Ordered By: Shaikh Dotty on 10-01-2023 Eosinophils/100 WBC (Bld) 2.7 % . [facility] Erythrocyte distribution wid th Auto (RBC) [Ratio]Ordered By: Shaikh Dotty on 10-01-2023 Erythrocyte distribution width (RBC) [Ratio] 14.9 % 12.0-14.8 [facility] Globulin Calc (S) [Mass/Vol] Ordered By: Shaikh Dotty on 10-01-2023 Globulin (S) [Mass/Vol] 2.5 g/dL [facility] Glucose [Mass/volume] in Ser um or PlasmaOrdered By: Shaikh Dotty on 10-01-2023 Glucose [Mass/Vol] 115 mg/dL 70-100 [facility] Comment on above: ADA recommended refe [...] from glycated hemoglobin (Bld) [Mass/Vol] 128 mg/dL [facility] Hematocrit Auto (Bld) [Volum e fraction]Ordered By: Shaikh Dotty on 10-01-2023 Hematocrit (Bld) [Volume fraction] 37.2 % 38.8-50.0 [facility] Hemoglobin A1c percentageOrd ered By: Shaikh Dotty on 10-01-2023 HbA1c (Bld) [Mass fraction] 6.1 % 4.3-5.6 [facility] Comment on above: Increased risk for d iabetes: 5.7 - 6.4diabetes: >6.4glycemic control for adults with diabetes: <7.0 Hemoglobin [Mass/volume] in BloodOrdered By: Shaikh Dotty on 10-01-2023 Hemoglobin (Bld) [Mass/Vol] 12.3 g/dL 13.0-17.0 [facility] Leukocytes [#/volume] correc diana for nucleated erythrocytes in Blood by Automated counOrdered By: Shaikh Dotty on 10-01-2023 WBC corrected for nucl RBC Auto (Bld) [#/Vol] 8.3 10*3/uL 4.1-10.5 [facility] Lymphocytes Auto (Bld) [#/Vo l]Ordered By: Shaikh Dotty on 10-01-2023 Lymphocytes (Bld) [#/Vol] 1.3 10*3/uL 1.00-4.8 [facility] Lymphocytes/100 WBC Auto (Bl d)Ordered By: Shaikh Dotty on 10-01-2023 Lymphocytes/100 WBC (Bld) 16.1 % . [facility] MCH Auto (RBC) [Entitic mass ]Ordered By: Shaikh Dotty on 10-01-2023 MCH (RBC) [Entitic mass] 30.5 pg 27.5-35.2 [facility] MCHC Auto (RBC) [Mass/Vol]Or dered By: Shaikh Dotty on 10-01-2023 MCHC (RBC) [Mass/Vol] 33.1 g/dL 32.5-35.6 [facility] MCV Auto (RBC) [Entitic vol] Ordered By: Shaikh Dotty on 10-01-2023 MCV (RBC) [Entitic vol] 92.2 fL 83.5-101 [facility] Monocytes Auto (Bld) [#/Vol] Ordered By: Shaikh Dotty on 10-01-2023 Monocytes (Bld) [#/Vol] 0.6 10*3/uL 0.0-0.8 [facility] Monocytes/100 WBC Auto (Bld) Ordered By: Shaikh Dotty on 10-01-2023 Monocytes/100 WBC (Bld) 7.6 % . [facility] Neutrophils Auto (Bld) [#/Vo l]Ordered By: Shaikh Dotty on 10-01-2023 Neutrophils (Bld) [#/Vol] 6.1 10*3/uL 1.8-7.7 [facility] Neutrophils/100 WBC Auto (Bl d)Ordered By: Shaikh Dotty on 10-01-2023 Neutrophils/100 WBC (Bld) 73.2 % . [facility] No Panel InformationOrdered By: Shaikh Dotty on 10-01-2023 Estimated GFR (CKD-EPI) 35.887 mL/Min [facility] Creatinine Clearance (Chem N/A [facility] Nucleated erythrocytes [Pres ence] in Blood by Automated countOrdered By: Shaikh Dotty on 10-01-2023 Nucleated RBC Auto Ql (Bld) 0.1 /100{WBC} 0-0.5 [facility] Orders Onlyon 10-01-2023 Orders Only [id number] Dianne Broussard ld 1945 M Date Provider Department Center 10/01/2023 DONOVAN MONTAGUE ONC DCC Family History Problem Relation Age of Onset Hypertension Mother Diabetes Father Family Status - Relation Status Age at Mother Father Normal [facility] Platelet mean volume Auto (B ld) [Entitic vol]Ordered By: Shaikh Dotty on 10-01-2023 Platelet mean volume (Bld) [Entitic vol] 8.7 fL 6.6-10.1 [facility] Platelets Auto (Bld) [#/Vol] Ordered By: Shaikh Dotty on 10-01-2023 Platelets (Bld) [#/Vol] 270 10*3/uL 150-450 [facility] Potassium [Moles/volume] in Serum or PlasmaOrdered By: Shaikh Dotty on 10-01-2023 Potassium [Moles/Vol] 4.9 mmol/L 3.5-5.1 [facility] Prostate specific Ag [Mass/v olume] in Serum or PlasmaOrdered By: Barbara Johnston on 10-01-2023 Prostate specific Ag [Mass/Vol] 0.420 ng/mL 0.000-4.00 0 [facility] Comment on above: Serial tumor marker results determined by assays using different manufacturers or methods may not be comparable.[facility] 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 Protein [Mass/volume] in Ser um or PlasmaOrdered By: Shaikh Dotty on 10-01-2023 Protein [Mass/Vol] 6.7 g/dL 6.4-8.9 [facility] Protein [Mass/volume] in Uri neOrdered By: Shaikh Dotty on 10-01-2023 Protein (U) [Mass/Vol] 124 mg/dL 0-9 [facility] RBC Auto (Bld) [#/Vol]Ordere d By: Shaikh Dotty on 10-01-2023 RBC (Bld) [#/Vol] 4.04 10*6/uL 3.90-5.60 [facility] Serum or plasma albumin/glob ulin mass ratioOrdered By: Shaikh Dotty on 10-01-2023 Albumin/Globulin [Mass ratio] 1.7 {ratio} [facility] Serum or plasma anion gap de terminationOrdered By: Shaikh Dotty on 10-01-2023 Anion gap [Moles/Vol] 9.9 mmol/L 6.0-15.0 [facility] Serum or plasma high density lipoprotein (HDL) cholesterol measurementOrdered By: Shaikh Dotty on 10-01-2023 Cholesterol in HDL [Mass/Vol] 38 mg/dL 23-92 [facility] Comment on above: HDL CHOL ATP-III CLA SSIFICATION Cardiovascular RiskHDL > or equal to 60 mg/dL LOWHDL < 40 mg/dL HIGH Serum or plasma total choles terol/high density lipoprotein (HDL) cholesterol mass ratOrdered By: Shaikh Dotty on 10-01-2023 Cholesterol.total/Chol esterol in HDL [Mass ratio] 3.6 {ratio} <5.0 [facility] Sodium [Moles/volume] in Ser um or PlasmaOrdered By: Shaikh Dotty on 10-01-2023 Sodium [Moles/Vol] 140 mmol/L 136-145 [facility] Thyrotropin [Units/volume] i n Serum or PlasmaOrdered By: Shaikh Dotty on 10-01-2023 TSH Qn 1.61 m[IU]/L 0.45-5.33 [facility] Triglyceride [Mass/volume] i n Serum or PlasmaOrdered By: Shaikh Dotty on 10-01-2023 Triglyceride [Mass/Vol] 80 mg/dL 0-149 [facility] Comment on above: TRIG ATP III CLASSIF ICATIONTRIG less than 150 mg/dL NormalTRIG 150-199 mg/dL Borderline highTRIG 200-500 mg/dL High TRIG greater than 500 mg/dL Very highStandard traceable to the Center for Disease Conrtrol and Prevention (CDC) test method. Urea nitrogen [Mass/volume] in Serum or PlasmaOrdered By: Shaikh Dotty on 10-01-2023 Urea nitrogen [Mass/Vol] 33 mg/dL 7-25 [facility] WBC Auto (Bld) [#/Vol]Ordere d By: Shaikh Dotty on 10-01-2023 WBC (Bld) [#/Vol] 8.3 10*3/uL 4.1-10.5 [facility] Ambulatory Visit Summaryon 0 09-18-2023 Ambulatory Visit Summary YESENIA BROUSSARD :1945 Visit Date:09/18/2023 Ambulatory Visit Instructions Your Diagnosis Nocturia Erectile dysfunction BPH with urinary obstruction History of prostate cancer History of UTI Your Care Team Attending Physician - PRESTON MAK, Barbara Warner Primary Care Physician - DOTTY MAK, CARREON This Is Your Medications List tadalafil (Cialis 20 mg Tab) Contact prescribing physician if questions or concerns acetaminophen-hydrocodone (Marion 5/325 Tab) amlodipine (amLODIPine 5 mg Tab) [...] with PRESTON MAK, GLO Ortega When: Where: [address] [place] [address]- Medications What How Much When Instructions Unchanged tadalafil (Cialis 20 mg Tab) 1 Tablets By Mouth As Directed Do not exceed 20mg within 48 hours. Unchanged acetaminophen-hydrocodone (Marion 5/ 325 Tab) By Mouth Every 6 [...] bladder diary (more content not included)... Normal [facility] Patient Educationon 09-18-19 24 Patient Education Urology Urinary Frequency, Adult [...] keep your urine pale yellow. ? Take inii-miz-ptkikkm or prescription medicines. ? Eat foods that are high in fiber, such as beans, whole grains, and fresh fruits and vegetables. ? Limit foods that are high in fat and processed sugars, such as fried or sweet foods. General instructions ? Take lpgs-zoc-inmabny and prescription medicines only as told by [...] muscles that help control urination. ? Take vbmf-oeo-hbwnckz and prescription medicines only as told by your health care provider. ? Contact a health care provider if your symptoms do not improve or get worse. This information is not intended to replace advice given to you by your health care provider. Make sure you discuss any questions you have with your health care provider. Document Revised: 12/21/2020 Document Reviewed: 12/21/2020 [employer] Patient Education ? 2022 [employer] [facility] Urology Office/Clinic Noteon 09-18-2023 Urology Office/Clinic [...] Contact Information PRESTON MAK, Barbara Warner, [address] [place] [address]- Additional Instructions: 6 mos w/ PSA Patient Education Urinary Frequency, Adult I, Tabitha Saenz, personally scribed for Dr. Johnston on 09/18/2023 11:55:58. . Documentation recorded by the scribe, Tabitha Saenz, accurately reflects the services(s) I performed and decisions made by me. Authenticated by Dr. Johnston on 09/18/2023 11:59:13. Problem List/Past Medical History Ongoing Anxiety BPH with (more content not included)... Normal [facility] Comment on above: Result Comment: Elec tronically Signed By: Barbara JOHNSTON MD\.br\Date and Time Signed: 09/18/23 11:59 EDT\.br\Electronically Co-Signed By: Tabitha Saenz\.br\Date and Time Co-Signed: 09/18/23 11:56 EDT Orders Onlyon 09-03-2023 Orders Only [id number] Dianne Broussard ld 1945 M Date Provider Department Center 09/03/2023 [id number], HISTORICAL Renees DCC Family History Problem Relation Age of Onset Hypertension Mother Diabetes Father Family Status - Relation Status Age at Mother Father Normal [facility] Office Visiton 09-02-2023 Follow-up visit [id number] Dianne Broussard mandeep 1945 M Date Provider Department Center 09/02/2023 VASILE DOMINGUEZ ONC MARVIN Family History Problem Relation Age of Onset Hypertension Mother Diabetes Father Family Status - Relation Status Age at Mother Father Level of Service:80951 NC OFFICE/OUTPATIENT NEW MODERATE MDM 45 MINUTES Reason for Visit and Comments: Consult [484] - Low back pain consult Normal [facility] Orders Onlyon 08-28-2023 Orders Only [id number] Dianne Broussard ld 1945 M Date Provider Department Center 08/28/2023 VASILE DOMINGUEZ ONC DCC No family history on file Normal [facility] ECG 12 Leadon 08-18-2023 Normal sinus rhythm, right bundle branch block and left anterior fascicular block consistent with bifascicular block, abnormal ECG [facility] Work Phone: S Urineon 07-11-2023 Bacteria identified Cx Nom (U) Microbiology PROCEDURE: Urine Culture [R1] SOURCE: U Random BODY SITE: COLLECTED DATE/TIME: 07/07/2023 09:50 EST RECEIVED DATE/TIME: 07/07/2023 19:09 EST START DATE/TIME: 07/07/2023 19:09 EST FREE TEXT SOURCE: BRITNI ENCINAS, CLAIRE RODRIGUEZ PA-C FINAL REPORTS Final Report [] Verified Date/Time: [...] Locations R1: This test was performed at: [facility], [address] [place] [address], [id number] , , Normal [facility] Comment on above: Performed By: #### [id number] ####[facility] [address] [facility] [facility] [place] [address] Consultation Noteon 07-08-19 Consultation Note [id number]#1.00TIFF [facility] Lab Reportson 07-08-2023 Lab Reports [id number]#[id number] [facility] Patient Educationon 07-07-19 Patient Education Urology [...] keep your urine pale yellow. ? Take xham-fvb-snxvfbs or prescription medicines. ? Eat foods that are high in fiber, such as beans, whole grains, and fresh fruits and vegetables. ? Limit foods that are high in fat and processed sugars, such as fried or sweet foods. General instructions ? Take sepe-rvm-ycndiie and prescription medicines only as told by [...] muscles that help control urination. ? Take pyxw-qtb-yhbrlxr and prescription medicines only as told by your health care provider. ? Contact a health care provider if your symptoms do not improve or get worse. This information is not intended to replace advice given to you by your health care provider. Make sure you discuss any questions you have with your health care provider. Document Revised: 12/21/2020 Document Reviewed: 12/21/2020 [employer] Patient Education ? 2022 [employer]. Normal [facility] Urology Office/Clinic Noteon 07-07-2023 Urology [...] Information PRESTON MAK, Barbara Warner, [address] [place] [address]- Additional Instructions: 3 mos Patient Education Urinary Frequency, Adult Documentation recorded by the scribe Tabitha Saenz accurately reflects the services(s) I performed and decisions made (more content not included)... Normal [facility] Comment on above: Result Comment: Elec tronically Signed By: CLAIRE JAMES PA-C\.br\Date and Time Signed: 07/07/23 10:08 EST\.br\Electronically Co-Signed By: Tabitha Saenz\.br\Date and Time Co-Signed: 07/07/23 09:50 EST NUCLEAR STRESS TESTon 2023 NUCLEAR STRESS TEST Interpreted By: Inge Dickerson and Beal Gina STUDY: MYOCARDIAL PERFUSION STRESS TEST WITH LEXISCAN Performing facility: [facility], [address] [place] [address], [address], [place] [address] [facility] Provider: Sylvester Grayson DO, [facility] PCP: Dr. Agus STORM Supervising provider: Inge Dickerson MD INDICATION: HTN, Bilateral Carotid, Chest Pain HISTORY: Gender: M; Age: 77 y/o ; Height: HT 177.8 cm cm; Weight: WT 89.812 kg kg. CAD; High Cholesterol; Abnormal EKG; RBBB Previous NE; Family HX CAD; Chest Pain; COPD; PAD, CVA, Carotid Disease, CKD Currently smoking. Cardiac catheterization. PTCA 1990s RCA. COMPARISON: No comparison. ACCESSION NUMBER(S): [id number] ORDERING CLINICIAN: CHAIM GRAYSON TECHNIQUE: ONE DAY [...] Inge Dickerson 06/19/2023 11:20 AM Dictation workstation: [id number] [facility] CNOVon 06-12-2023 CNOV Office Visit (SPSLUH ) -- YESENIA BROUSSARD ([id number]) 1945 Date Time Provider Department 06/12/23 11:00 AM [...] heat Medications: See medication reconciliation list in [facility] MEDICATIONS: Hydrocodone, Gabapentin 2017 back surgery [...] pleasant 77-year-old male who recently moved from [place] to [place]. He reports longstanding history of back and [...] suit/legal clai (more content not included)... Normal [facility] ECG 12 Leadon 06-04-2023 Sinus rhythm, right bundle branch block, left axis deviation, abnormal ECG [facility] Work Phone: Lab Reportson 05-26-2023 Lab Reports [id number]#1.00TIFF Normal [facility] Lab Reportson 05-18-2023 Lab Reports [id number]#1.00TIFF Normal [facility] Physician Orderon 05-06-2023 Physician Order [id number]#1.00TIFF [facility] C Urineon 04-25-2023 Bacteria identified Cx [...] Locations R1: This test was performed at: [facility], [address] [place] [address], [facility]- , , [facility] Comment on above: Performed By: #### [id number] ####[facility] [address] [place] [address] [facility] 04-22-2023 Screens [id number]#1.00TIFF [facility] Screens [id number]#1.00TIFF [facility] Ambulatory Visit Summaryon 1 06-21-2022 Ambulatory Visit Summary YESENIA BROUSSARD :1945 Visit Date:04/21/2023 Ambulatory Visit Instructions Your Diagnosis Nocturia UTI symptoms Erectile dysfunction Prostate cancer BPH with urinary obstruction Tests Performed Urnls Dip Stick Auto w/o Microscopy POC 70144 Your Care Team Attending Physician - CLAIRE JAMES PA-C Primary Care Physician - DOTTY MAK, [facility] This Is Your Medications List oxybutynin (oxybutynin 5 mg Tab) Contact prescribing physician if questions or concerns acetaminophen-hydrocodone (Marion 5/325 Tab) amlodipine (amLODIPine 5 mg Tab) [...] CLAIRE JAMES PA-C Where: [facility] Patient Educationon 04-21-20 Patient Education Urology [...] these instructions at home: Medicines ? Take bols-zhx-qzspnps and prescription medicines only as told by [...] include cig (more content not included)... Normal [facility] Urology Office/Clinic Noteon 04-21-2023 Urology [...] at rt. base to mid. S/p TURP 01/06/22, G7 (3+4), grade group 2. 39/104 chips involved. 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 Saw Dr Nazario 12/16/21. Decided on EBRT. Pt received radiation 03/18/22 - 04/23/22. Continues to follow w their office.*No recent rad onc note found on [employer] or [employer] BPH *No BPH meds at this time* [...] -Begin desmopressin 0.05mg qhs. Rx sent to [facility] in [place]. -Check electrolytes in 1 wk after starting [...] -Begin Sildenafil 50mg prn. Rx sent to [facility] in [place]. 4. Prostate cancer (C61: Malignant neoplasm of [...] obstruction (N4 (more content not included)... Normal [facility] Comment on above: Result Comment: Elec tronically Signed By: CLAIRE JAMES PA-C\.br\Date and Time Signed: 04/21/23 09:33 EST\.br\Electronically Co-Signed By: Rosario Byrne\.br\Date and Time Co-Signed: 04/21/23 09:14 EST Creatinine [Mass/volume] in Serum or PlasmaOrdered By: Jose Martin Mchugh on 03-23-2023 Creatinine [Mass/Vol] 2.03 mg/dL 0.70-1.30 [facility] No Panel InformationOrdered By: Jose Martin Mchugh on 03-23-2023 Estimated GFR (CKD-EPI) 33.144 mL/Min [facility] Creatinine Clearance (Chem 34.29 [facility] Urea nitrogen [Mass/volume] in Serum or PlasmaOrdered By: Jose Martin Mchugh on 03-23-2023 Urea nitrogen [Mass/Vol] 35 mg/dL 7-25 [facility] Albumin [Mass/volume] in Ser um or Plasma by Bromocresol green (BCG) dye binding methoOrdered By: Theo Thakkar on 03-09-2023 Albumin BCG dye [Mass/Vol] 4.1 g/dL 3.5-5.7 [facility] Automated erythrocytes count in urine sediment (number/area)Ordered By: Theo Thakkar on 03-09-2023 RBC Auto (Urine sed) [#/Area] 5-9 [HPF] 0-4 [facility] Automated leukocytes count i n urine sediment (number/area)Ordered By: Theo Thakkar on 03-09-2023 WBC Auto (Urine sed) [#/Area] Innumerable [HPF] 0-4 [facility] Bilirubin Test strip Ql (U)O rdered By: Theo Thakkar on 03-09-2023 Bilirubin Ql (U) Negative Negative [facility] Calcium [Mass/volume] in Ser um or PlasmaOrdered By: Theo Thakkar on 03-09-2023 Calcium [Mass/Vol] 9.3 mg/dL 8.6-10.3 [facility] Carbon dioxide, total [Moles /volume] in Serum or PlasmaOrdered By: Theo Thakkar on 03-09-2023 CO2 [Moles/Vol] 26.4 mmol/L 21.0-31.0 [facility] Chloride [Moles/volume] in S jaime or PlasmaOrdered By: Theo Thakkar on 03-09-2023 Chloride [Moles/Vol] 104 mmol/L 98-107 [facility] Color Auto (U)Ordered By: Ab bola Thakkar on 03-09-2023 Color (U) Yellow Yellow [facility] Creatinine [Mass/volume] in Serum or PlasmaOrdered By: Theo Thakkar on 03-09-2023 Creatinine [Mass/Vol] 1.83 mg/dL 0.70-1.30 [facility] Creatinine [Mass/volume] in UrineOrdered By: Theo Thakkar on 03-09-2023 Creatinine (U) [Mass/Vol] 162.0 mg/dL 14.0-26.0 [facility] Glucose [Mass/volume] in Ser um or PlasmaOrdered By: Theo Thakkar on 03-09-2023 Glucose [Mass/Vol] 126 mg/dL 70-100 [facility] Comment on above: ADA recommended refe rence rangeRandom Glucose Reference Range is dependent on time and content of last meal. Glucose of more than 200 mg/dL in a nonstressed, ambulatory subject supports the diagnosis of Diabetes Mellitus. Ketones Auto test strip (U) [Mass/Vol]Ordered By: Theo Thakkar on 03-09-2023 Ketones (U) [Mass/Vol] Negative Negative Fi [facility] - UrinalysisOrder ed By: Theo Thakkar on 03-09-2023 Hyaline casts LM Ql (Urine sed) None seen [LPF] 0-8 [facility] Magnesium [Mass/volume] in S jaime or PlasmaOrdered By: Theo Thakkar on 03-09-2023 Magnesium [Mass/Vol] 2.2 mg/dL 1.9-2.7 [facility] Nitrite Test strip Ql (U)Ord ered By: Theo Thakkar on 03-09-2023 Nitrite Ql (U) Negative Negative [facility] No Panel InformationOrdered By: Theo Thakkar on 03-09-2023 Estimated GFR (CKD-EPI) 37.537 mL/Min [facility] Creatinine Clearance (Chem N/A [facility] Parathyrin.intact [Mass/volu me] in Serum or PlasmaOrdered By: Theo Thakkar on 03-09-2023 Parathyrin.intact [Mass/Vol] 128.0 pg/mL 12-88 [facility] Phosphate [Mass/volume] in S jaime or PlasmaOrdered By: Theo Tahkkar on 03-09-2023 Phosphate [Mass/Vol] 4.1 mg/dL 3.7-7.2 [facility] Potassium [Moles/volume] in Serum or PlasmaOrdered By: Theo Thakkar on 03-09-2023 Potassium [Moles/Vol] 4.7 mmol/L 3.5-5.1 [facility] Protein Auto test strip (U) [Mass/Vol]Ordered By: Theo Thakkar on 03-09-2023 Protein (U) [Mass/Vol] 100 mg/dL Negative Fi [facility] Protein [Mass/volume] in Uri neOrdered By: Theo Thakkar on 03-09-2023 Protein (U) [Mass/Vol] 104 mg/dL 0-9 Fi [facility] Serum or plasma anion gap de terminationOrdered By: Theo Thakkar on 03-09-2023 Anion gap [Moles/Vol] 10.3 mmol/L 6.0-15.0 [facility] Sodium [Moles/volume] in Ser um or PlasmaOrdered By: Theo Thakkar on 03-09-2023 Sodium [Moles/Vol] 136 mmol/L 136-145 [facility] Specific gravity Auto test s trip (U) [Rel density]Ordered By: Theo Thakkar on 03-09-2023 Specific gravity (U) [Rel density] 1.018 1.001-1.03 0 [facility] Squamous epithelial cells de tection in urine sediment by light microscopyOrdered By: Theo Thakkar on 03-09-2023 Epithelial cells.squamous LM Ql (Urine sed) None seen [HPF] 0-2 [facility] Urate [Mass/volume] in Serum or PlasmaOrdered By: Theo Thakkar on 03-09-2023 Urate [Mass/Vol] 7.1 mg/dL 4.4-7.6 [facility] Urea nitrogen [Mass/volume] in Serum or PlasmaOrdered By: Theo Thakkar on 03-09-2023 Urea nitrogen [Mass/Vol] 30 mg/dL 7-25 [facility] Urine bacteria detection by automated methodOrdered By: Theo Thakkar on 03-09-2023 Bacteria Auto Ql (U) None seen None Seen [facility] Urine clarity by refractomet ry automatedOrdered By: Theo Thakkar on 03-09-2023 Clarity Refractometry automated (U) Cloudy Clear [facility] Urine culture routineOrdered By: Theo Thakkar on 03-09-2023 Bacteria identified Cx Nom (U) Staphylococcus aureus [facility] Bacteria identified Cx Nom (U) Staphylococcus aureus [facility] Urine glucose measurement by automated test strip (mass/volume)Ordered By: Theo Thakkar on 03-09-2023 Glucose Auto test strip (U) [Mass/Vol] Normal mg/dL Normal [facility] Urine hemoglobin detection b y automated test stripOrdered By: Theo Thakkar on 03-09-2023 Hemoglobin Auto test strip Ql (U) 1+ Negative [facility] Urine leukocyte esterase det ection by automated test stripOrdered By: Theo Thakkar on 03-09-2023 Leukocyte esterase Auto test strip Ql (U) 4+ Negative [facility] Urine protein/creatinine rat ioOrdered By: Theo Thakkar on 03-09-2023 Protein/Creatinine (U) [Ratio] 642 mg/g{Cre} 0-200 [facility] Urobilinogen Auto test strip (U) [Mass/Vol]Ordered By: Theo Thakkar on 03-09-2023 Urobilinogen (U) [Mass/Vol] Normal mg/dL Normal [facility] Vitamin D+Metabolites [Mass/ volume] in Serum or PlasmaOrdered By: Theo Thakkar on 03-09-2023 Vitamin D+Metabolites [Mass/Vol] 18.9 ng/mL 30-100 [facility] Comment on above: VITAMIN D STATUS 25( [place])VITAMIN D RANGE (ng/mL) Deficient <20 Insufficient 20 to <30Sufficient 30 to 100Reference: Grecia MF,Wayne PALMER, John VILLEGAS, et al. Evaluation,treatment, and prevention of vitamin D deficiency; an Endocrine Society clinical practice guideline. JCEM. 2010; 96(7):1911-30. pH Auto test strip (U)Ordere d By: Theo Thakkar on 03-09-2023 pH (U) 5.5 [pH] 5.0-9.0 [facility] Alanine aminotransferase [En zymatic activity/volume] in Serum or PlasmaOrdered By: Shaikh Dotty on 01-09-2023 ALT [Catalytic activity/Vol] 12 U/L 7-52 [facility] Albumin [Mass/volume] in Ser um or Plasma by Bromocresol green (BCG) dye binding methoOrdered By: Shaikh Dotty on 01-09-2023 Albumin BCG dye [Mass/Vol] 4.2 g/dL 3.5-5.7 [facility] Alkaline phosphatase [Enzyma tic activity/volume] in Serum or PlasmaOrdered By: Shaikh Dotty on 01-09-2023 ALP [Catalytic activity/Vol] 66 U/L 34-104 [facility] Aspartate aminotransferase [ Enzymatic activity/volume] in Serum or PlasmaOrdered By: Shaikh Dotty on 01-09-2023 AST [Catalytic activity/Vol] 13 U/L 13-39 [facility] Basophils Auto (Bld) [#/Vol] Ordered By: Shaikh Dotty on 01-09-2023 Basophils (Bld) [#/Vol] 0.0 10*3/uL 0.0-0.2 [facility] Basophils/100 WBC Auto (Bld) Ordered By: Shaikh Dotty on 01-09-2023 Basophils/100 WBC (Bld) 0.5 % . [facility] Bilirubin.total [Mass/volume ] in Serum or PlasmaOrdered By: Shaikh Dotty on 01-09-2023 Bilirubin [Mass/Vol] 0.3 mg/dL 0.3-1.0 [facility] Calcium [Mass/volume] in Ser um or PlasmaOrdered By: Shaikh Dotty on 01-09-2023 Calcium [Mass/Vol] 9.2 mg/dL 8.6-10.3 [facility] [facility] Carbon dioxide, total [Moles /volume] in Serum or PlasmaOrdered By: Shaikh Dotty on 01-09-2023 CO2 [Moles/Vol] 26.1 mmol/L 21.0-31.0 [facility] Chloride [Moles/volume] in S jaime or PlasmaOrdered By: Shaikh Dotty on 01-09-2023 Chloride [Moles/Vol] 109 mmol/L 98-107 [facility] Cholesterol [Mass/volume] in Serum or PlasmaOrdered By: Shaikh Dotty on 01-09-2023 Cholesterol [Mass/Vol] 178 mg/dL 140-200 [facility] Comment on above: Chol less than 200 m g/dl low riskChol 201-239 mg/dl borderline riskChol 240 mg/dl and greater high risk Cholesterol in LDL Calc [Mas s/Vol]Ordered By: Shaikh Dotty on 01-09-2023 Cholesterol in LDL [Mass/Vol] 115 mg/dL 0-100 [facility] Comment on above: LDL ATP III CLASSIFI CATIONLDL less than 100 mg/dL OptimalLDL 100-129 mg/dL Near or above optimalLDL 130-159 mg/dL Borderline highLDL 160-189 mg/dL HighLDL greater than 189 mg/dL Very high Cholesterol in VLDL Calc [Ma ss/Vol]Ordered By: Shaikh Dotty on 01-09-2023 Cholesterol in VLDL [Mass/Vol] 32 mg/dL [facility] Creatinine [Mass/volume] in Serum or PlasmaOrdered By: Shaikh Dotty on 01-09-2023 Creatinine [Mass/Vol] 1.80 mg/dL 0.70-1.30 [facility] Eosinophils Auto (Bld) [#/Vo l]Ordered By: Shaikh Dotty on 01-09-2023 Eosinophils (Bld) [#/Vol] 0.2 10*3/uL 0.0-0.45 [facility] Eosinophils/100 WBC Auto (Bl d)Ordered By: Shaikh Dotty on 01-09-2023 Eosinophils/100 WBC (Bld) 3.9 % . [facility] Erythrocyte distribution wid th Auto (RBC) [Ratio]Ordered By: Shaikh Dotty on 01-09-2023 Erythrocyte distribution width (RBC) [Ratio] 14.6 % 12.0-14.8 [facility] Globulin Calc (S) [Mass/Vol] Ordered By: Shaikh Dotty 01-09-2023 Globulin (S) [Mass/Vol] 2.7 g/dL [facility] Glucose [Mass/volume] in Ser um or PlasmaOrdered By: Shaikh Dotty on 01-09-2023 Glucose [Mass/Vol] 114 mg/dL 70-100 [facility] Comment on above: ADA recommended refe rence rangeRandom Glucose Reference Range is dependent on time and content of last meal. Glucose of more than 200 mg/dL in a nonstressed, ambulatory subject supports the diagnosis of Diabetes Mellitus. Hematocrit Auto (Bld) [Volum e fraction]Ordered By: Shaikh Dotty on 01-09-2023 Hematocrit (Bld) [Volume fraction] 40.3 % 38.8-50.0 [facility] Hemoglobin [Mass/volume] in BloodOrdered By: Shaikh Dotty 01-09-2023 Hemoglobin (Bld) [Mass/Vol] 13.3 g/dL 13.0-17.0 [facility] Leukocytes [#/volume] correc diana for nucleated erythrocytes in Blood by Automated counOrdered By: Shaikh Dotty on 01-09-2023 WBC corrected for nucl RBC Auto (Bld) [#/Vol] 5.6 10*3/uL 4.1-10.5 [facility] Lymphocytes Auto (Bld) [#/Vo l]Ordered By: Shaikh Dotty on 01-09-2023 Lymphocytes (Bld) [#/Vol] 1.1 10*3/uL 1.00-4.8 [facility] Lymphocytes/100 WBC Auto (Bl d)Ordered By: Shaikh Dotty on 01-09-2023 Lymphocytes/100 WBC (Bld) 19.3 % . [facility] MCH Auto (RBC) [Entitic mass ]Ordered By: Shaikh Dotty on 01-09-2023 MCH (RBC) [Entitic mass] 30.0 pg 27.5-35.2 [facility] MCHC Auto (RBC) [Mass/Vol]Or dered By: Shaikh Dotty on 01-09-2023 MCHC (RBC) [Mass/Vol] 32.9 g/dL 32.5-35.6 [facility] MCV Auto (RBC) [Entitic vol] Ordered By: Shaikh Dotty on 01-09-2023 MCV (RBC) [Entitic vol] 91.2 fL 83.5-101 [facility] Monocytes Auto (Bld) [#/Vol] Ordered By: Shaikh Dotty on 01-09-2023 Monocytes (Bld) [#/Vol] 0.5 10*3/uL 0.0-0.8 [facility] Monocytes/100 WBC Auto (Bld) Ordered By: Shaikh Dotty on 01-09-2023 Monocytes/100 WBC (Bld) 8.7 % . [facility] Neutrophils Auto (Bld) [#/Vo l]Ordered By: Shaikh Dotty on 01-09-2023 Neutrophils (Bld) [#/Vol] 3.8 10*3/uL 1.8-7.7 [facility] Neutrophils/100 WBC Auto (Bl d)Ordered By: Shaikh Dotty on 01-09-2023 Neutrophils/100 WBC (Bld) 67.6 % . [facility] No Panel InformationOrdered By: Shaikh Dotty on 01-09-2023 Estimated GFR (CKD-EPI) 38.289 mL/Min [facility] Creatinine Clearance (Chem N/A [facility] Nucleated erythrocytes [Pres ence] in Blood by Automated countOrdered By: Shaikh Dotty on 01-09-2023 Nucleated RBC Auto Ql (Bld) 0.1 /100{WBC} 0-0.5 [facility] Platelet mean volume Auto (B ld) [Entitic vol]Ordered By: Shaikh Dotty on 01-09-2023 Platelet mean volume (Bld) [Entitic vol] 9.7 fL 6.6-10.1 [facility] Platelets Auto (Bld) [#/Vol] Ordered By: Shaikh Dotty on 01-09-2023 Platelets (Bld) [#/Vol] 173 10*3/uL 150-450 [facility] Potassium [Moles/volume] in Serum or PlasmaOrdered By: Shaikh Dotty on 01-09-2023 Potassium [Moles/Vol] 4.9 mmol/L 3.5-5.1 [facility] Protein [Mass/volume] in Ser um or PlasmaOrdered By: Shaikh Dotty on 01-09-2023 Protein [Mass/Vol] 6.9 g/dL 6.4-8.9 [facility] RBC Auto (Bld) [#/Vol]Ordere d By: Shaikh Dotty on 01-09-2023 RBC (Bld) [#/Vol] 4.42 10*6/uL 3.90-5.60 [facility] Serum or plasma albumin/glob ulin mass ratioOrdered By: Shaikh Dotty on 01-09-2023 Albumin/Globulin [Mass ratio] 1.6 {ratio} [facility] Serum or plasma anion gap de terminationOrdered By: Shaikh Dotty on 01-09-2023 Anion gap [Moles/Vol] 9.8 mmol/L 6.0-15.0 [facility] Serum or plasma high density lipoprotein (HDL) cholesterol measurementOrdered By: Shaikh Dotty on 01-09-2023 Cholesterol in HDL [Mass/Vol] 31 mg/dL 23-92 [facility] Comment on above: HDL CHOL ATP-III CLA SSIFICATION Cardiovascular RiskHDL > or equal to 60 mg/dL LOWHDL < 40 mg/dL HIGH Serum or plasma total choles terol/high density lipoprotein (HDL) cholesterol mass ratOrdered By: Shaikh Dotty on 01-09-2023 Cholesterol.total/Chol esterol in HDL [Mass ratio] 5.7 {ratio} <5.0 [facility] Sodium [Moles/volume] in Ser um or PlasmaOrdered By: Shaikh Dotty on 01-09-2023 Sodium [Moles/Vol] 140 mmol/L 136-145 [facility] Triglyceride [Mass/volume] i n Serum or PlasmaOrdered By: Shaikh Dotty on 01-09-2023 Triglyceride [Mass/Vol] 162 mg/dL 0-149 [facility] Comment on above: TRIG ATP III CLASSIF ICATIONTRIG less than 150 mg/dL NormalTRIG 150-199 mg/dL Borderline highTRIG 200-500 mg/dL High TRIG greater than 500 mg/dL Very highStandard traceable to the Center for Disease Conrtrol and Prevention (CDC) test method. Urea nitrogen [Mass/volume] in Serum or PlasmaOrdered By: Shaikh Dotty on 01-09-2023 Urea nitrogen [Mass/Vol] 34 mg/dL 7-25 [facility] WBC Auto (Bld) [#/Vol]Ordere d By: Shaikh Dotty on 01-09-2023 WBC (Bld) [#/Vol] 5.6 10*3/uL 4.1-10.5 [facility] CNPNon 01-05-2023 CNPN Telephone (IRRFV) -- YESENIA BROUSSARD ([id number]) 1945 M Date Time Provider Department 01/05/23 [...] will need to be scheduled at [facility] [place]. Allergies As of Date: 01/05/2023 (No Known Allergies) Date Reviewed: 11/19/2022 Reviewed by: Elizabeth Freire APRN.[employer]ACHINE [employer]TER - Fully Assessed Reason for Visit: Patient Question [2967] Appointment [[id number]] Prescriptions as of 01/05/2023 - [...] Encounter Status:Closed by EVELYN CHAMBERLAIN on 01/05/23 [facility] URINEon 10-28-2022 CULTURE URINE Culture Observations : LIGHT GROWTH OF MIXED SKIN DANIELLE. NO POTENTIAL PATHOGENS SEEN. Normal [facility] Comment on above: Performed By: #### U RCX #### [facility] [address] [address] [address] Leighann Santana No Panel InformationOrdered By: Hyun Nazario on 05-09-2022 Prostate Specific Antigen Total 2.810 ng/mL 0.000-4.00 0 [facility] Basophils Auto (Bld) [#/Vol] Ordered By: Zeinab Justice on 04-23-2022 Basophils (Bld) [#/Vol] 0.0 10*3/uL 0.0-0.2 [facility] Basophils/100 WBC Auto (Bld) Ordered By: Zeinab Justice on 04-23-2022 Basophils/100 WBC (Bld) 0.5 % . [facility] Body fluid albumin measureme nt (mass/volume)Ordered By: Zeinab uJstice on 04-23-2022 Albumin (Body fld) [Mass/Vol] 3.6 g/dL 3.2-5.5 [facility] Creatinine and Glomerular fi ltration rate.predicted panel (S/P/Bld)Ordered By: Zeinab Justice on 04-23-2022 Creatinine [Mass/Vol] 1.65 mg/dL 0.64-1.27 [facility] Eosinophils Auto (Bld) [#/Vo l]Ordered By: Zeinab Justice on 04-23-2022 Eosinophils (Bld) [#/Vol] 0.2 10*3/uL 0.0-0.45 [facility] Eosinophils/100 WBC Auto (Bl d)Ordered By: Zeinab Justice on 04-23-2022 Eosinophils/100 WBC (Bld) 3.4 % . [facility] Erythrocyte distribution wid th Auto (RBC) [Ratio]Ordered By: Zeinab Justice on 04-23-2022 Erythrocyte distribution width (RBC) [Ratio] 15.0 % 12.0-14.8 [facility] Estimated glomerular filtrat ion rate (GFR) non- AmericanOrdered By: Zeinab Justice on 04-23-2022 GFR/1.73 sq M.predicted among non-blacks MDRD (S/P/Bld) [Vol rate/Area] 41 mL/Min [facility] Globulin Calc (S) [Mass/Vol] Ordered By: Zeinab Justice on 04-23-2022 Globulin (S) [Mass/Vol] 2.6 g/dL [facility] Hematocrit Auto (Bld) [Volum e fraction]Ordered By: Zeinab Justice on 04-23-2022 Hematocrit (Bld) [Volume fraction] 38.0 % 38.8-50.0 [facility] Hemoglobin [Mass/volume] in BloodOrdered By: Zeinab Justice on 04-23-2022 Hemoglobin (Bld) [Mass/Vol] 12.3 g/dL 13.0-17.0 [facility] - Hematology and Cell countsOrdered By: Zeinab Justice on 04-23-2022 Nucleated RBC/100 WBC (Bld) [Ratio] 0.2 % 0-0.5 [facility] Leukocytes [#/volume] in Blo od by Automated countOrdered By: Zeinab Justice on 04-23-2022 WBC (Bld) [#/Vol] 5.3 10*3/uL 4.5-11.0 [facility] Lymphocytes Auto (Bld) [#/Vo l]Ordered By: Zeinab Justice on 04-23-2022 Lymphocytes (Bld) [#/Vol] 0.9 10*3/uL 1.00-4.8 [facility] Lymphocytes/100 WBC Auto (Bl d)Ordered By: Zeinab Justice on 04-23-2022 Lymphocytes/100 WBC (Bld) 17.1 % . [facility] MCH Auto (RBC) [Entitic mass ]Ordered By: Zeinab Justice on 04-23-2022 MCH (RBC) [Entitic mass] 30.6 pg 27.5-35.2 [facility] MCHC Auto (RBC) [Mass/Vol]Or dered By: Zeinab Justice on 04-23-2022 MCHC (RBC) [Mass/Vol] 32.4 g/dL 32.5-35.6 [facility] MCV Auto (RBC) [Entitic vol] Ordered By: Zeinab Justice on 04-23-2022 MCV (RBC) [Entitic vol] 94.4 fL 83.5-101 [facility] Monocytes Auto (Bld) [#/Vol] Ordered By: Zeinab Justice on 04-23-2022 Monocytes (Bld) [#/Vol] 0.6 10*3/uL 0.0-0.8 [facility] Monocytes/100 WBC Auto (Bld) Ordered By: Zeinab Justice on 04-23-2022 Monocytes/100 WBC (Bld) 10.5 % . [facility] Neutrophils Auto (Bld) [#/Vo l]Ordered By: Zeinab Justice on 04-23-2022 Neutrophils (Bld) [#/Vol] 3.6 10*3/uL 1.8-7.7 [facility] Neutrophils/100 WBC Auto (Bl d)Ordered By: Zeinab Justice on 04-23-2022 Neutrophils/100 WBC (Bld) 68.5 % . [facility] No Panel InformationOrdered By: Zeinab Justice on 04-23-2022 Estimated GFR () 49 mL/Min [facility] Comment on above: GFR estimated refere nce range: According to KDOQI guidelines, <60 ml/min/1.73m2 is sufficient to diagnose a patient with chronic kidney disease. Pharmacy Creatinine Clearance (Chem N/A [facility] Platelet mean volume Auto (B ld) [Entitic vol]Ordered By: Zeinab Justice on 04-23-2022 Platelet mean volume (Bld) [Entitic vol] 9.7 fL 6.6-10.1 [facility] Platelets Auto (Bld) [#/Vol] Ordered By: Zeinab Justice on 04-23-2022 Platelets (Bld) [#/Vol] 170 10*3/uL 150-450 [facility] Protein [Mass/volume] in Ser um or PlasmaOrdered By: Zeinab Justice on 04-23-2022 Protein [Mass/Vol] 6.2 g/dL 6.1-7.9 [facility] RBC Auto (Bld) [#/Vol]Ordere d By: Zeinab Justice on 04-23-2022 RBC (Bld) [#/Vol] 4.02 10*6/uL 3.90-5.60 [facility] Serum or plasma alanine cadet otransferase measurement without P-5'-P (enzymatic activiOrdered By: Zeinab Justice on 04-23-2022 ALT No additional P-5'-P [Catalytic activity/Vol] 19 U/L 10-60 [facility] Serum or plasma albumin/glob ulin mass ratioOrdered By: Zeinab Justice on 04-23-2022 Albumin/Globulin [Mass ratio] 1.4 {ratio} [facility] Serum or plasma alkaline crispin sphatase measurement (enzymatic activity/volume)Ordered By: Zeinab Justice on 04-23-2022 ALP [Catalytic activity/Vol] 51 U/L 32-92 [facility] Serum or plasma anion gap de terminationOrdered By: Zeinab Justice on 04-23-2022 Anion gap [Moles/Vol] 13.2 mmol/L 6.0-15.0 [facility] Serum or plasma aspartate am inotransferase measurement (enzymatic activity/volume)Ordered By: Zeinab Justice on 04-23-2022 AST [Catalytic activity/Vol] 18 U/L 10-42 [facility] Serum or plasma calcium jose antonio urement (mass/volume)Ordered By: Zeinab Justice on 04-23-2022 Calcium [Mass/Vol] 8.8 mg/dL 8.2-10.2 [facility] Serum or plasma chloride doreen surement (moles/volume)Ordered By: Zeinab Justice on 04-23-2022 Chloride [Moles/Vol] 104 mmol/L 95-114 [facility] Serum or plasma glucose jose antonio urement (mass/volume)Ordered By: Zeinab Justice on 04-23-2022 Glucose [Mass/Vol] 98 mg/dL 70-100 [facility] Comment on above: ADA recommended refe rence rangeRandom Glucose Reference Range is dependent on time and content of last meal. Glucose of more than 200 mg/dL in a nonstressed, ambulatory subject supports the diagnosis of Diabetes Mellitus. Serum or plasma potassium me asurement (moles/volume)Ordered By: Zeinab Justice on 04-23-2022 Potassium [Moles/Vol] 4.6 mmol/L 3.5-5.1 [facility] Serum or plasma sodium measu rement (moles/volume)Ordered By: Zeinab Justice on 04-23-2022 Sodium [Moles/Vol] 136 mmol/L 136-146 [facility] Serum or plasma total biliru bin measurement (mass/volume)Ordered By: Zeinab Justice on 04-23-2022 Bilirubin [Mass/Vol] 0.5 mg/dL 0.3-1.2 [facility] Serum or plasma total carbon dioxide measurement (moles/volume)Ordered By: Zeinab Justice on 04-23-2022 CO2 [Moles/Vol] 23.4 mmol/L 22.0-30.0 [facility] Serum or plasma urea nitroge n measurement (mass/volume)Ordered By: Zeinab Justice on 04-23-2022 Urea nitrogen [Mass/Vol] 22 mg/dL 02-21 [facility] CBC W Auto Differential pane l (Bld)on 03-27-2022 Basophils (Bld) [#/Vol] <0.11 k/uL [facility] Basophils/100 WBC (Bld) 0.3 % [facility] Differential cell count method Nom (Bld) Auto [facility] Eosinophils (Bld) [#/Vol] 0.25 10*3/uL <0.46 k/uL [facility] Eosinophils/100 WBC (Bld) 3.2 % [facility] Erythrocyte distribution width (RBC) [Ratio] 14.3 % 11.5 - 15.0 % [facility] Hematocrit (Bld) [Volume fraction] 39.3 % 39.0 - 51.0 % [facility] Hemoglobin (Bld) [Mass/Vol] 12.8 g/dL Low 13.0 - 17.0 g/dL [facility] Immature granulocytes (Bld) [#/Vol] 0.03 10*3/uL <0.10 k/uL [facility] Immature granulocytes/100 WBC (Bld) 0.4 % [facility] Lymphocytes (Bld) [#/Vol] 1.53 10*3/uL 1.00 - 4.00 k/uL [facility] Lymphocytes/100 WBC (Bld) 19.8 % [facility] MCH (RBC) [Entitic mass] 31.4 pg 26.0 - 34.0 pg [facility] MCHC (RBC) [Mass/Vol] 32.6 g/dL 30.5 - 36.0 g/dL [facility] MCV (RBC) [Entitic vol] 96.6 fL 80.0 - 100.0 fL [facility] Monocytes (Bld) [#/Vol] 0.67 10*3/uL <0.87 k/uL [facility] Monocytes/100 WBC (Bld) 8.7 % [facility] Neutrophils (Bld) [#/Vol] 5.21 10*3/uL 1.45 - 7.50 k/uL [facility] Neutrophils/100 WBC (Bld) 67.6 % [facility] Nucleated RBC (Bld) [#/Vol] <0.01 k/uL [facility] Nucleated RBC/100 WBC (Bld) [Ratio] 0.0 /100 WBC [facility] Platelet mean volume (Bld) [Entitic vol] 11.2 fL 9.0 - 12.7 fL [facility] Platelets (Bld) [#/Vol] 183 10*3/uL 150 - 400 k/uL [facility] RBC (Bld) [#/Vol] 4.07 10*6/uL Low 4.20 - 6.00 m/uL [facility] WBC (Bld) [#/Vol] 7.71 10*3/uL 3.70 - 11.00 k/uL [facility] CHEMISTRYOrdered By: SYSTEM SYSTEM on 02-13-2022 Albumin [...] 10 mmol/L Normal 6 - 16 mEq/L [facility] AST [Catalytic activity/Vol] 17 [iU]/d Normal 5 - 43 Int._Unit/ L [facility] Bilirubin [Mass/Vol] 0.3 mg/dL Normal 0.0 - 1 .1 mg/dL [facility] Calcium [Mass/Vol] 9.1 mg/dL Normal 8.9 - 11. 1 mg/dL [facility] Chloride [Moles/Vol] 107 mmol/L Normal 101 - 1 11 mmol/L [facility] CO2 [Moles/Vol] 25 mmol/L Normal 21 - 31 mmol/L [facility] Creatinine [Mass/Vol] 1.8 mg/dL High 0.5 - 1.3 mg/dL [facility] GFR/1.73 sq M.predicted among blacks MDRD (S/P/Bld) [Vol rate/Area] 45 mL/min/1.73 m2 Low >=59mL/min /1.73 m2 [facility] Chem S GFR/1.73 sq M.predicted among non-blacks MDRD (S/P/Bld) [Vol rate/Area] 37 mL/min/1.73 m2 Low >=59mL/min /1.73 m2 [facility] Chem S Globulin (S) [Mass/Vol] 3.3 g/dL Normal 1.4 - 4.0 gm/dL [facility] Glucose [Mass/Vol] 95 mg/dL Normal 55 - 199 mg/dL [facility] Potassium [Moles/Vol] 4.5 mmol/L Normal 3.5 - 5.3 mmol/L [facility] Protein [Mass/Vol] 7.3 g/dL Normal 6.0 - 7.8 gm/dL [facility] Sodium [Moles/Vol] 137 mmol/L Normal 135 - 145 mmol/L [facility] Urea nitrogen [Mass/Vol] 27 mg/dL High 5 - 21 mg/dL [facility] Urea nitrogen/Creatinine [Mass ratio] 15 mg/mg [...] 197.0 E9/L Normal 150.0 - 500.0 E9/L [facility]eAutoSS RBC (Bld) [#/Vol] 4.4 E12/L Normal 4.3 - 5.9 E12/L [facility]eAuto[facility] WBC corrected for nucl RBC Auto (Bld) [#/Vol] 6.9 E9/L Normal 4.0 - 11.0 E9/L [facility] HemeAutoSS Covid-19 PCR (CVDTBH)on SARS-CoV-2 (COVID-19) RNA WENCESLAO+probe Ql (Unsp spec) Not detected Normal NOT DETECTED [facility] Comment on above: Result Comment: This test is not yet approved or cleared by the [place] FDA. When there are no FDA-approved or cleared tests available, and other criteria are met, FDA can make tests available under an emergency access mechanism called an Emergency Use Authorization (EUA). The EUA for this test is supported by the [place] W[place] of Health and Human Service's (HHS's) declaration [...] SARS-CoV-2. Performed By: #### C VDTBH #### [facility] [address] [place] [address] Dr. Leighann Santana PTH INTACTon 01-31-2022 PTH, Intact 35 pg/mL Normal 15-[address] [facility] Comment on above: Performed By: #### P THINT #### [facility] [address] [address] [address] Leighann Santana VIT D 25-OH LABCORPon 2021 Vitamin D, 25-Hydroxy 26.2 ng/mL Critically low 30.0-100.[address] [facility] Comment on above: Result Comment: [place] min D deficiency has been defined by the [place] of Medicine and an Endocrine Society practice guideline as a level of serum 25-OH vitamin D less than 20 ng/mL (1,2). The Endocrine Society went on to further define vitamin D insufficiency as a level between 21 and 29 ng/mL (2). 1. IOM ([place] of Medicine). 2010. Dietary reference intakes for calcium and D. [place]: The National Academies Press. 2. Grecia MF, Wayne PALMER, John VILLEGAS, et al. Evaluation, treatment, and prevention of vitamin D deficiency: an Endocrine Society clinical practice guideline. JCEM. 2010; 96(7):1911-30. Performed By: #### V ITADLC #### [facility] [address] [place], [place] [address] Dr. Leighann Santana HEMOGRAM AND PLATELon 2021 Hematocrit (Bld) [Volume fraction] 39.3 % Critically low 42.0-54.0 [facility] Comment on above: Performed By: #### H H ####[facility] [address] [id number] Santana Hemoglobin (Bld) [Mass/Vol] 12.5 g/dL Critically low 14.0-18.[address] [facility] Comment on above: Performed By: #### H H ####[facility] [address] [place], [place] [address]VxSusan Santana MCH (RBC) [Entitic mass] 30.2 pg Normal 25.9-34.[address] [facility] Comment on above: Performed By: #### H H ####[facility] [address] [place], [place] [address]KqSusan Santana MCHC (RBC) [Mass/Vol] 31.8 g/dL Normal 29.9-35.[address] [facility] Comment on above: Performed By: #### H H ####[facility] [address] [id number] Santana MCV (RBC) [Entitic vol] 94.9 fL Critically high 80.0-94.[address] [facility] Comment on above: Performed By: #### H H ####[facility] [address] [address]Dr. Leighann Santana PLT 191 103/ul Normal 150-[address] [facility] Comment on above: Performed By: #### H H ####[facility] [address] [address]Dr. Leighann Santana RBC 4.14 106/ul Critically low 4.70-6.[address] [facility] Comment on above: Performed By: #### H H ####[facility] [address] [address]Dr. Leighann Santana WBC 7.3 103/ul Normal 4.0-11.[address] [facility] Comment on above: Performed By: #### H H ####[facility] [address] [place], [place] [address]Dr. Leighann Santana MAGNESIUMon 01-30-2022 Magnesium [Mass/Vol] 1.9 mg/dL Normal 1.8-2.[address] [facility] Comment on above: Performed By: #### R ENAL, MG, URIC ####[facility] [address] [place], [place] [address]Dr. Leighann Santana RENAL FUNCTION PANELon 01-30 Albumin [Mass/Vol] 3.4 g/dL Normal 3.4-5.[address] [facility] Comment on above: Performed By: #### R ENAL, MG, URIC ####[facility] [address] [place], [place] [address]Dr. Leighann Santana Calcium [Mass/Vol] 8.7 mg/dL Normal 8.5-10.[address] [facility] Comment on above: Performed By: #### R ENAL, MG, URIC ####[facility] [address] [place], [place] [address]Dr. Leighann Santana Chloride [Moles/Vol] 105 mmol/L Normal 98-[address] [facility] Comment on above: Performed By: #### R ENAL, MG, URIC ####[facility] [address] [place], [place] [address]Dr. Leighann Santana CO2 [Moles/Vol] 26.5 mmol/L Normal 21.0-32.[address] [facility] Comment on above: Performed By: #### R ENAL, MG, URIC ####[facility] [address] [address]Dr. Leighann Santana Creatinine [Mass/Vol] 1.77 mg/dL Critically high 0.70-1.[address] [facility] Comment on above: Performed By: #### R ENAL, MG, URIC ####[facility] [address] [address]Dr. Leighann Max EGFR-AF HUNGARIAN 46 mL/min/1.73m2 Critically low >=[address] [facility] Comment on above: Performed By: #### R ENAL, MG, URIC ####[facility] [address] [address]Dr. Leighann Santana EGFR-NON AF HUNGARIAN 38 mL/min/1.73m2 Critically low >=[address] [facility] Comment on above: Performed By: #### R ENAL, MG, URIC ####[facility] [address] [address]Dr. Ghadaleon Santana Glucose [Mass/Vol] 136 mg/dL Critically high 74-106 [facility] Comment on above: Performed By: #### R ENAL, MG, URIC ####[facility] [address] [address]Dr. Leighann Max Phosphate [Mass/Vol] 3.6 mg/dL Normal 2.6-4.[address] [facility] Comment on above: Performed By: #### R ENAL, MG, URIC ####[facility] [address] [address]Dr. Leighann Santana Potassium [Moles/Vol] 4.5 mmol/L Normal 3.5-5.[address] [facility] Comment on above: Performed By: #### R ENAL, MG, URIC ####[facility] [address] [address]Dr. Ghadaleon Santana Sodium [Moles/Vol] 140 mmol/L Normal 136-[address] [facility] Comment on above: Performed By: #### R ENAL, MG, URIC ####[facility] [id number] [place] [id number]. Leighann Santana Urea nitrogen [Mass/Vol] 25.0 mg/dL Critically high 7.0-18.0 [facility] Comment on above: Performed By: #### R ENAL, MG, URIC ####[facility] [id number] [place] [id number]. Legihann Santana UA RANDOM W/MICROSCOPICon BACTERIA SMALL Abnormal NONE SEEN [facility] Center Comment on above: Performed By: #### U AMIC #### [facility] [address] [place] [address] Dr. Leighann Santana Bilirubin Ql (U) Negative Normal NEGATIVE [facility] Comment on above: Performed By: #### U AMIC #### [facility] [address] [place] [address] Dr. Leighann Santana CAST NONE SEEN Normal NONE SEEN [facility] Comment on above: Performed By: #### U AMIC #### [facility] [address] [place] [address] Dr. Leighann Santana Clarity (U) CLEAR Normal CLEAR [facility] Comment on above: Performed By: #### U AMIC #### [facility] [address] [place] [address] Dr. Leighann Santana Color (U) LT. YELLOW Normal YELLOW [facility] Comment on above: Performed By: #### U AMIC #### [facility] [address] [place] [address] Dr. Leighann Santana Crystals LM Nom (Urine sed) NONE SEEN Normal NONE SEEN [facility] Comment on above: Performed By: #### U AMIC #### [facility] [address] [place] [address] Dr. Leighann Santana Epithelial cells LM Ql (Urine sed) FEW Abnormal NONE SEEN /RARE [facility] Comment on above: Performed By: #### U AMIC #### [facility] [address] [place] [address] Dr. Leighann Santana Glucose Ql (U) Negative Normal NEGATIVE [facility] Comment on above: Performed By: #### U AMIC #### [facility] [address] [place] [address] Dr. Leighann Santana Hemoglobin Ql (U) TRACE-INTACT Abnormal NEGATIVE [facility] Comment on above: Performed By: #### U AMIC #### [facility] [address] [place] [address] Dr. Leighann Santana Ketones Ql (U) Negative Normal NEGATIVE [facility] Comment on above: Performed By: #### U AMIC #### [facility] [address] [address] [address] Leighann Santana LEUKOCYTES MODERATE Abnormal NEGATIVE [facility] Comment on above: Performed By: #### U AMIC #### [facility] [address] [place] [address] Dr. Leighann Santana MUCOUS NONE SEEN Normal NONE SEEN [facility] Comment on above: Performed By: #### U AMIC #### [facility] [address] [place] [address] Dr. Leighann Santana Nitrite Ql (U) Positive Abnormal NEGATIVE [facility] Comment on above: Performed By: #### U AMIC #### [facility] [address] [place] [address] Dr. Leighann Santana pH (U) 5.5 [pH] Normal 5-9 [facility] Comment on above: Performed By: #### U AMIC #### [facility] [address] [place] [address] Dr. Leighann Santana RBC 2-5 Abnormal 0-[address] [facility] Comment on above: Performed By: #### U AMIC #### [facility] [address] [place] [address] Dr. Leighann Santana SPEC GRAVITY >=1.030 Abnormal 1.005-<=1. 025 [facility] Comment on above: Performed By: #### U AMIC #### [facility] [address] [place] [address] Dr. Leighann Santana UA PROTEIN 30 mg/dl Abnormal NEGATIVE/ TRACE [facility] Comment on above: Performed By: #### U AMIC #### [facility] [address] [address] [address] Leighann Santana Urobilinogen Qn (U) 0.2 {Jing'U}/dL Normal 0.2 - 1. [address] [facility] Comment on above: Performed By: #### U AMIC #### [facility] [address] [address] [address] Leighann Santana WBC 10-20 Abnormal NONE SEEN [facility] Comment on above: Performed By: #### U AMIC #### [facility] [address] [address] [address] Leighann Santana URIC ACID SERUMon 01-30-2022 Urate [Mass/Vol] 6.5 mg/dL Normal 3.5-7.2 [facility] Comment on above: Performed By: #### R ENAL, MG, URIC ####[facility] [address] [address]Dr. Leighann Santana URINE T PROTEIN CREAT RATIOo n 01-30-2022 Protein (U) [Mass/Vol] 73.2 mg/dL Critically high <=12.0 [facility] Comment on above: Performed By: #### U RTPCR #### [facility] [address] [place] [address] Dr. Leighann Santana UR PROT CREAT RAT 0.[address] [facility] Comment on above: Performed By: #### U RTPCR #### [facility] [address] [address] [address] Leighann Santana URINE CREAT 175.21 mg/dL Normal 20.00-300. 00 [facility] Comment on above: Performed By: #### U RTPCR #### [facility] [address] [address] [address] Leighann Santana SURGICAL PATH REPORTon 06-11 SURGICAL PATH REPORT [facility] Department of Pathology [address] [id number] Name: BOBO YESENIA R : 1945 [facility] [id number] Number: Gender: Male Location: [facility] Admit 75 years Attending BARBARA JOHNSTON Age: Provider: Ordering BARBARA JOHNSTON Provider: Consulting: Surgical Pathology Report ACCESSION: COLLECTED DATE/TIME: RECEIVED DATE/TIME: PATHOLOGIST: [id number] 06/06/2021 16:30 EST 06/07/2021 11:15 EST KATYA BALL MD Final Diagnosis Report for [facility] [place] PROSTATE TISSUE; TURP: - PROSTATIC ACINAR [...] Print Date/ 06/11/2021 16:16 EST Number: Time: [facility] Department of Pathology [address] [place] [id number] Name: YESENIA BROUSSARD : 1945 [facility] [id number] Number: Gender: Male Location: [facility] Admit 75 years Attending BARBARA JOHNSTON Age: Provider: Ordering BARBARA JOHNSTON Provider: Consulting: Surgical Pathology Report ACCESSION: COLLECTED DATE/TIME: RECEIVED DATE/TIME: PATHOLOGIST: [id number] 06/06/2021 16:30 EST 06/07/2021 11:15 EST KATYA [...] Print Date/ 06/11/2021 16:16 EST Number: Time: [facility] Department of Pathology [address] [place] [id number] Name: YESENIA BROUSSARD : 1945 [facility] [id number] Number: Gender: Male Location: [facility] Admit 75 years Attending BARBARA JOHNSTON Age: Provider: Ordering BARBARA JOHNSTON Provider: Consulting: Surgical Pathology Report ACCESSION: COLLECTED DATE/TIME: RECEIVED DATE/TIME: PATHOLOGIST: [id number] 06/06/2021 16:30 EST 06/07/2021 11:15 EST QUINN MAK, KATYA Gross Description Labeled prostate tissue. Received in formalin are multiple hemicylindrical segments of khan- pink firm, but pliable tissue. The segments have an aggregate weight of 12 grams and measure in aggregate 7.8 x 6.4 x 2.0 cm. There are calculi present amongst the tissue segment. The specimen is entirely submitted in twelve cassettes. PJ/dakotah 06/07/2021 Tissue pathology report for: [facility], [address] [place] [address]; PATHOLOGY SERVICES PROVIDED BY [employer] (CLIA #[id number]) in cooperation with [facility] at [address] [place] [address] (CLIA #[id number]) Codes CPT CODE: 41128 Print Date06/11/2021 16:16 EST Number: Time: Normal [facility] Comment on above: Performed By: #### [id number] #### [facility] [id number] [id number] Medical Physics Researcher: Gigi Peters MD Vital Signs Date Time Vital Sign Value Performing Clinician Facility 02-20-2025 11:37-0400 Body height 177.8 cm Brian Avalos MD Work Phone: [facility] 02-20-2025 11:37-0400 Body mass index (BMI) [Ratio] 28.1 kg/m2 Brian Avalos MD Work Phone: [facility] 02-20-2025 11:37-0400 Body weight 89.01 kg Brian Avalos MD Work Phone: [facility] 02-20-2025 11:37-0400 Diastolic blood pressure 78 mm[Hg] Brian Avalos MD Work Phone: [facility] 02-20-2025 11:37-0400 Heart rate 75 /min Brian Avalos MD Work Phone: [facility] 02-20-2025 11:37-0400 Respiratory rate 18 /min Brian Avalos MD Work Phone: [facility] 02-20-2025 11:37-0400 SaO2% (BldA) [Mass fraction] 97 % Brian Avalos MD Work Phone: [facility] 02-20-2025 11:37-0400 Systolic blood pressure 138 mm[Hg] Brian Avalos MD Work Phone: [facility] 01-18-2025 09:27-0400 Body height 177.8 cm SRAVANTHI Nazario MD Work Phone: [facility] 01-18-2025 09:27-0400 Body mass index (BMI) [Ratio] 27.99 kg/m2 SRAVANTHI Nazario MD Work Phone: [facility] 01-18-2025 09:27-0400 Body temperature 98.6 [degF] SRAVANTHI Nazario MD Work Phone: [facility] 01-18-2025 09:27-0400 Body weight 88.5 kg SRAVANTHI Nazario MD Work Phone: [facility] 01-18-2025 09:27-0400 Diastolic blood pressure 75 mm[Hg] SRAVANTHI Nazario MD Work Phone: [facility] 01-18-2025 09:27-0400 Heart rate 92 /min SRAVANTHI Nazario MD Work Phone: [facility] 01-18-2025 09:27-0400 Respiratory rate 16 /min SRAVANTHI Nazario MD Work Phone: [facility] 01-18-2025 09:27-0400 SaO2% (BldA) [Mass fraction] 96 % SRAVANTHI Nazario MD Work Phone: [facility] 01-18-2025 09:27-0400 Systolic blood pressure 150 mm[Hg] SRAVANTHI Nazario MD Work Phone: [facility] 08-30-2024 11:30-0400 Diastolic blood pressure 68 mm[Hg] Jose Hector SPOTLIGHT OPERATOR-GRINDER MACHINE SETTER Work Phone: [facility] 08-30-2024 11:30-0400 Systolic blood pressure 136 mm[Hg] Jose Hector APRN-GRINDER MACHINE SETTER Work Phone: [facility] 08-30-2024 11:16-0400 Body height 177.8 cm Jose Hector SPOTLIGHT OPERATOR-GRINDER MACHINE SETTER Work Phone: [facility] 08-30-2024 11:16-0400 Body mass index (BMI) [Ratio] 28.55 kg/m2 Jose Hector SPOTLIGHT OPERATOR-GRINDER MACHINE SETTER Work Phone: [facility] 08-30-2024 11:16-0400 Body weight 90.27 kg Jose Hector SPOTLIGHT OPERATOR-GRINDER MACHINE SETTER Work Phone: [facility] 08-30-2024 11:16-0400 Heart rate 84 /min Jose Hector SPOTLIGHT OPERATOR-GRINDER MACHINE SETTER Work Phone: [facility] 08-15-2024 10:39-0400 Body height 177.8 cm Brian Avalos MD Work Phone: [facility] 08-15-2024 10:39-0400 Body mass index (BMI) [Ratio] 28.4 kg/m2 Brian Avalos MD Work Phone: [facility] 08-15-2024 10:39-0400 Body temperature 97.8 [degF] Brian Avalos MD Work Phone: [facility] 08-15-2024 10:39-0400 Body weight 89.92 kg Brian Avalos MD Work Phone: [facility] 08-15-2024 10:39-0400 Diastolic blood pressure 74 mm[Hg] Brian Avalos MD Work Phone: [facility] 08-15-2024 10:39-0400 Heart rate 85 /min Brian Avalos MD Work Phone: [facility] 08-15-2024 10:39-0400 Respiratory rate 16 /min Brian Avalos MD Work Phone: [facility] 08-15-2024 10:39-0400 SaO2% (BldA) [Mass fraction] 98 % Brian Avalos MD Work Phone: [facility] 08-15-2024 10:39-0400 Systolic blood pressure 123 mm[Hg] Brian Avalos MD Work Phone: [facility] 07-14-2024 11:14-0500 Body height 177.8 cm Brian Avalos MD Work Phone: [facility] 07-14-2024 11:14-0500 Body temperature 98 [degF] Brian Avalos MD Work Phone: [facility] 07-14-2024 11:14-0500 Body weight 89 kg Brian Avalos MD Work Phone: [facility] 07-14-2024 11:14-0500 Diastolic blood pressure 90 mm[Hg] Brian Avalos MD Work Phone: [facility] 07-14-2024 11:14-0500 Heart rate 101 /min Brian Avalos MD Work Phone: [facility] 07-14-2024 11:14-0500 Respiratory rate 18 /min Brian Avalos MD Work Phone: [facility] 07-14-2024 11:14-0500 SaO2% (BldA) [Mass fraction] 96 % Brian Avalos MD Work Phone: [facility] 07-14-2024 11:14-0500 Systolic blood pressure 178 mm[Hg] Brian Avalos MD Work Phone: [facility] 07-13-2024 13:16-0500 Body height 177.8 cm Nasir Gascapatrick INFORMATICS ANALYST Work Phone: [facility] 07-13-2024 13:16-0500 Body mass index (BMI) [Ratio] 28.84 kg/m2 Nasir Ward INFORMATICS ANALYST Work Phone: [facility] 07-13-2024 13:16-0500 Body temperature 97.7 [degF] Nasir Carterzpatrick INFORMATICS ANALYST Work Phone: [facility] 07-13-2024 13:16-0500 Body weight 91.17 kg Nasir Ward INFORMATICS ANALYST Work Phone: [facility] 07-13-2024 13:16-0500 Diastolic blood pressure 70 mm[Hg] Nasir Ward INFORMATICS ANALYST Work Phone: [facility] 07-13-2024 13:16-0500 Heart rate 94 /min Nasir Ward INFORMATICS ANALYST Work Phone: [facility] 07-13-2024 13:16-0500 Respiratory rate 16 /min Nasir Ward INFORMATICS ANALYST Work Phone: [facility] 07-13-2024 13:16-0500 SaO2% (BldA) [Mass fraction] 94 % Nasir Ward INFORMATICS ANALYST Work Phone: [facility] 07-13-2024 13:16-0500 Systolic blood pressure 136 mm[Hg] Nasir Ward INFORMATICS ANALYST Work Phone: [facility] 04-21-2024 11:12-0500 Body height 177.8 cm Nasir Ward INFORMATICS ANALYST Work Phone: [facility] 04-21-2024 11:12-0500 Body mass index (BMI) [Ratio] 27.86 kg/m2 Nasir Ward INFORMATICS ANALYST Work Phone: [facility] 04-21-2024 11:12-0500 Body temperature 96.3 [degF] Nasir Ward INFORMATICS ANALYST Work Phone: [facility] 04-21-2024 11:12-0500 Body weight 88.09 kg Nasir Ward INFORMATICS ANALYST Work Phone: [facility] 04-21-2024 11:12-0500 Diastolic blood pressure 68 mm[Hg] Nasir Ward INFORMATICS ANALYST Work Phone: [facility] 04-21-2024 11:12-0500 Heart rate 93 /min Nasir Ward INFORMATICS ANALYST Work Phone: [facility] 04-21-2024 11:12-0500 Respiratory rate 16 /min Nasir Ward INFORMATICS ANALYST Work Phone: [facility] 04-21-2024 11:12-0500 SaO2% (BldA) [Mass fraction] 93 % Nasir Ward INFORMATICS ANALYST Work Phone: [facility] 04-21-2024 11:12-0500 Systolic blood pressure 128 mm[Hg] Nasir Ward INFORMATICS ANALYST Work Phone: [facility] 04-18-2024 11:31-0500 Blood Pressure Location Barbara JOHNSTON [facility] 04-18-2024 11:31-0500 Body temperature 98.6 [degF] Barbara JOHNSTON [facility] 04-18-2024 11:31-0500 Diastolic blood pressure 85 mm[Hg] Barbara JOHNSTON [facility] 04-18-2024 11:31-0500 Heart rate 95 /min Barbara JOHNSTON [facility] 04-18-2024 11:31-0500 Respiratory rate 16 /min Barbara JOHNSTON [facility] 04-18-2024 11:31-0500 Systolic blood pressure 122 mm[Hg] Barbara JOHNSTON [facility] 02-29-2024 08:28-0400 Body height 177.8 cm PHYSICIAN [facility] 02-29-2024 08:28-0400 Body mass index (BMI) [Ratio] 27.4 kg/m2 PHYSICIAN NO [facility] 02-29-2024 08:28-0400 Body temperature 97.8 [degF] PHYSICIAN NO [facility] 02-29-2024 08:28-0400 Body weight 86.86 kg PHYSICIAN NO [facility] 02-29-2024 08:28-0400 Diastolic blood pressure 84 mm[Hg] PHYSICIAN NO [facility] 02-29-2024 08:28-0400 Heart rate 98 /min PHYSICIAN NO [facility] 02-29-2024 08:28-0400 Respiratory rate 16 /min PHYSICIAN NO [facility] 02-29-2024 08:28-0400 SaO2% (BldA) [Mass fraction] 99 % PHYSICIAN NO [facility] 02-29-2024 08:28-0400 Systolic blood pressure 129 mm[Hg] PHYSICIAN NO [facility] 01-20-2024 17:46-0400 Body height 177.8 cm Nasir Ward INFORMATICS ANALYST Work Phone: [facility] 01-20-2024 17:46-0400 Body mass index (BMI) [Ratio] 27.55 kg/m2 Nasir Ward INFORMATICS ANALYST Work Phone: [facility] 01-20-2024 17:46-0400 Body temperature 98.49 [degF] Nasir Ward INFORMATICS ANALYST Work Phone: [facility] 01-20-2024 17:46-0400 Body weight 87.09 kg Nasir Ward INFORMATICS ANALYST Work Phone: [facility] 01-20-2024 17:46-0400 Diastolic blood pressure 70 mm[Hg] Nasir Ward INFORMATICS ANALYST Work Phone: [facility] 01-20-2024 17:46-0400 Heart rate 76 /min Nasir Ward INFORMATICS ANALYST Work Phone: [facility] Comment on above: 97% O2 01-20-2024 17:46-0400 Systolic blood pressure 130 mm[Hg] Nasir Ward NP Work Phone: [facility] 12-15-2023 14:33-0400 Body mass index (BMI) [Ratio] 27.49 kg/m2 SRAVANTHI Nzaario MD Work Phone: [facility] 12-15-2023 14:33-0400 Body temperature 97.81 [degF] SRAVANTHI Nazario MD Work Phone: [facility] 12-15-2023 14:33-0400 Body weight 86.9 kg SRAVANTHI Nazario MD Work Phone: [facility] 12-15-2023 14:33-0400 Diastolic blood pressure 76 mm[Hg] SRAVANTHI Nazario MD Work Phone: [facility] 12-15-2023 14:33-0400 Heart rate 86 /min SRAVANTHI Nazario MD Work Phone: [facility] 12-15-2023 14:33-0400 Respiratory rate 16 /min SRAVANTHI Nazario MD Work Phone: [facility] 12-15-2023 14:33-0400 SaO2% (BldA) [Mass fraction] 98 % SRAVANTHI Nazario MD Work Phone: [facility] 12-15-2023 14:33-0400 Systolic blood pressure 137 mm[Hg] SRAVANTHI Nazario MD Work Phone: [facility] 10-15-2023 09:17-0400 Body height 177.8 cm MD Shaikh Storm Work Phone: [facility] 10-15-2023 09:17-0400 Body mass index (BMI) [Ratio] 28.1 kg/m2 MD Shaikh Storm Work Phone: [facility] 10-15-2023 09:17-0400 Body temperature 97.8 [degF] MD Shaikh Storm Work Phone: [facility] 10-15-2023 09:17-0400 Body weight 89 kg MD Shaikh Storm Work Phone: [facility] 10-15-2023 09:17-0400 Diastolic blood pressure 86 mm[Hg] MD Shaikh Storm Work Phone: [facility] 10-15-2023 09:17-0400 Heart rate 67 /min MD Shaikh Storm Work Phone: [facility] 10-15-2023 09:17-0400 Respiratory rate 16 /min MD Shaikh Storm Work Phone: [facility] 10-15-2023 09:17-0400 SaO2% (BldA) [Mass fraction] 94 % MD Shaikh Storm Work Phone: [facility] 10-15-2023 09:17-0400 Systolic blood pressure 128 mm[Hg] MD Shaikh Storm Work Phone: [facility] 09-18-2023 10:50-0400 Blood Pressure Location Barbara JOHNSTON [facility] 09-18-2023 10:50-0400 Diastolic blood pressure 81 mm[Hg] Barbara JOHNSTON [facility] 09-18-2023 10:50-0400 Heart rate 76 /min Barbara JOHNSTON [facility] 09-18-2023 10:50-0400 Respiratory rate 16 /min Barbara JOHNSTON [facility] 09-18-2023 10:50-0400 Systolic blood pressure 128 mm[Hg] Barbara JOHNSTON [facility] 08-18-2023 12:12-0400 Diastolic blood pressure 60 mm[Hg] Chaim Grayson DO Work Phone: [facility] 08-18-2023 12:12-0400 Systolic blood pressure 138 mm[Hg] Chaim Grayson DO Work Phone: [facility] 08-18-2023 11:52-0400 Body height 177.8 cm Chaim Grayson DO Work Phone: [facility] 08-18-2023 11:52-0400 Body mass index (BMI) [Ratio] 28.12 kg/m2 Chaim Grayson DO Work Phone: [facility] 08-18-2023 11:52-0400 Body weight 88.91 kg Chaim Kenan DO Work Phone: [facility] 08-18-2023 11:52-0400 Heart rate 80 /min Chaim Grayson DO Work Phone: [facility] 06-18-2023 13:11-0500 Diastolic blood pressure 94 mm[Hg] [address] 06-18-2023 13:11-0500 Heart rate 86 /min [address] 06-18-2023 13:11-0500 Systolic blood pressure 154 mm[Hg] [address] 06-12-2023 11:11-0500 Body height 177.8 cm Kodi Reynolds MD Work Phone: [facility] 06-12-2023 11:11-0500 Body weight 88.91 kg Kodi Reynolds MD Work Phone: [facility] 06-04-2023 10:19-0500 Diastolic blood pressure 84 mm[Hg] Chaim Grayson DO Work Phone: [facility] 06-04-2023 10:19-0500 Systolic blood pressure 154 mm[Hg] Chaim Grayson DO Work Phone: [facility] 06-04-2023 10:18-0500 Body height 177.8 cm Chaim Grayson DO Work Phone: [facility] 06-04-2023 10:18-0500 Body mass index (BMI) [Ratio] 28.41 kg/m2 Chaim Grayson DO Work Phone: [facility] 06-04-2023 10:18-0500 Body weight 89.81 kg Chaim Grayson DO Work Phone: [facility] 06-04-2023 10:18-0500 Heart rate 83 /min Chaim Grayson DO Work Phone: [facility] 04-21-2023 09:05-0500 Diastolic blood pressure 86 mm[Hg] CLAIRE BRITNI [facility] 04-21-2023 09:05-0500 Heart rate 76 /min CLAIRE BRITNI [facility] 04-21-2023 09:05-0500 Mean blood pressure 108 mm[Hg] CLAIRE BRITNI [facility] 04-21-2023 09:05-0500 Systolic blood pressure 151 mm[Hg] CLAIRE BRITNI [facility] 04-21-2023 08:20-0500 Blood Pressure Location CLAIRE BRITNI [facility] 04-21-2023 08:20-0500 Diastolic blood pressure 84 mm[Hg] CLAIRE BRITNI [facility] 04-21-2023 08:20-0500 Heart rate 79 /min CLAIRE BRITNI [facility] 04-21-2023 08:20-0500 Respiratory rate 16 /min CLAIRE BRITNI [facility] 04-21-2023 08:20-0500 Systolic blood pressure 153 mm[Hg] CLAIRE JAMES [facility] 04-16-2023 11:30-0500 Body height 177.8 cm Jose Martin Mchugh Other [employer] Other 04-16-2023 11:30-0500 Body mass index (BMI) [Ratio] 28.26 kg/m2 Jose Martin Mchugh Other [employer] Other 04-16-2023 11:30-0500 Body temperature 97.8 [degF] Jose Martin Mchugh Other [employer] Other 04-16-2023 11:30-0500 Body weight 89.36 kg Jose Martin Mchugh Other [employer] Other 04-16-2023 11:30-0500 Diastolic blood pressure 62 mm[Hg] Jose Martin Mchugh Other [employer] Other 04-16-2023 11:30-0500 SaO2% (BldA) [Mass fraction] 97 % Jose Martin Mchugh Other [employer] Other 04-16-2023 11:30-0500 Systolic blood pressure 120 mm[Hg] Jose Martin Mchugh Other [employer] Other 03-23-2023 12:55-0400 Diastolic blood pressure 78 mm[Hg] MD Shaikh Storm Work Phone: [facility] 03-23-2023 12:55-0400 Heart rate 54 /min MD Shaikh Storm Work Phone: [facility] 03-23-2023 12:55-0400 Respiratory rate 16 /min MD Shaikh Storm Work Phone: [facility] 03-23-2023 12:55-0400 SaO2% (BldA) [Mass fraction] 95 % MD Shaikh Storm Work Phone: [facility] 03-23-2023 12:55-0400 Systolic blood pressure 145 mm[Hg] MD Shaikh Storm Work Phone: [facility] 03-23-2023 09:48-0400 Inhaled oxygen flow rate 4 L/min MD Shaikh Storm Work Phone: [facility] 03-23-2023 07:22-0400 Body height 177.8 cm MD Shaikh Storm Work Phone: [facility] 03-23-2023 07:22-0400 Body weight 89.35 kg MD Shaikh Storm Work Phone: [facility] 03-12-2023 08:30-0400 Body height 177.8 cm Jose Martin Mchugh Other [employer] Other 03-12-2023 08:30-0400 Body mass index (BMI) [Ratio] 28.26 kg/m2 Jose Martin Mchugh Other [employer] Other 03-12-2023 08:30-0400 Body temperature 97.5 [degF] Jose Martin Mchugh Other [employer] Other 03-12-2023 08:30-0400 Body weight 89.36 kg Jose Martin Mchugh Other [employer] Other 03-12-2023 08:30-0400 Diastolic blood pressure 68 mm[Hg] Jose Martin Mchugh Other [employer] Other 03-12-2023 08:30-0400 SaO2% (BldA) [Mass fraction] 97 % Jose Martin Mchugh Other [facility] [employer] Other 03-12-2023 08:30-0400 Systolic blood pressure 128 mm[Hg] Jose Martin Mchugh Other [facility] [employer] Other 02-20-2023 11:15-0400 Diastolic blood pressure 63 mm[Hg] MD Shaikh Storm Work Phone: [facility] 02-20-2023 11:15-0400 Heart rate 45 /min MD Shaikh Storm Work Phone: [facility] 02-20-2023 11:15-0400 Respiratory rate 18 /min MD Shaikh Storm Work Phone: [facility] 02-20-2023 11:15-0400 SaO2% (BldA) [Mass fraction] 95 % MD Shaikh Storm Work Phone: [facility] 02-20-2023 11:15-0400 Systolic blood pressure 123 mm[Hg] MD Shaikh Storm Work Phone: [facility] 02-20-2023 11:07-0400 Body height 177.8 cm MD Shaikh Storm Work Phone: [facility] 02-20-2023 11:07-0400 Body mass index (BMI) [Ratio] 29 kg/m2 MD Shaikh Storm Work Phone: [facility] 02-20-2023 11:07-0400 Body weight 92 kg MD Shaikh Storm Work Phone: [facility] 02-20-2023 07:53-0400 Body temperature 98 [degF] MD Shaikh Storm Work Phone: [facility] 02-18-2023 11:30-0400 Body height 177.8 cm Bonnie Tan Other [facility] Other 02-18-2023 11:30-0400 Body mass index (BMI) [Ratio] 29.12 kg/m2 Bonnie Tan Other [facility] Other 02-18-2023 11:30-0400 Body temperature 97.8 [degF] Bonnie Tan Other [facility] Other 02-18-2023 11:30-0400 Body weight 92.08 kg Bonnie Tan Other [facility] Other 02-18-2023 11:30-0400 Diastolic blood pressure 76 mm[Hg] Bonnie Tan Other [facility] Other 02-18-2023 11:30-0400 SaO2% (BldA) [Mass fraction] 97 % Bonnie Tan Other [facility] Other 02-18-2023 11:30-0400 Systolic blood pressure 126 mm[Hg] Bonnie Johnbennett Other [facility] Other 02-11-2023 14:48-0400 Blood Pressure Location CLAIRE BRITNI [facility] 02-11-2023 14:48-0400 Diastolic blood pressure 74 mm[Hg] CLAIRE BRITNI [facility] 02-11-2023 14:48-0400 Heart rate 80 /min CLAIRE BRITNI [facility] 02-11-2023 14:48-0400 Respiratory rate 16 /min CLAIRE BRITNI [facility] 02-11-2023 14:48-0400 Systolic blood pressure 130 mm[Hg] CLAIRE BRITNI [facility] 01-19-2023 13:04-0400 Body weight 92.63 kg Jose Nichols DO Work Phone: [facility] 01-19-2023 13:04-0400 Diastolic blood pressure 58 mm[Hg] Jose Cuevasis DO Work Phone: [facility] 01-19-2023 13:04-0400 Heart rate 48 /min Jose Cuevasis DO Work Phone: [facility] 01-19-2023 13:04-0400 Systolic blood pressure 122 mm[Hg] Jose Cuevasis DO Work Phone: [facility] 12-03-2022 14:57-0400 Blood Pressure Location CLAIRE BRITNI [facility] 12-03-2022 14:57-0400 Diastolic blood pressure 76 mm[Hg] CLAIRE BRITNI [facility] 12-03-2022 14:57-0400 Heart rate 69 /min CLAIRE BRITNI [facility] 12-03-2022 14:57-0400 Respiratory rate 16 /min CLAIRE BRITNI [facility] 12-03-2022 14:57-0400 Systolic blood pressure 138 mm[Hg] CLAIRE BRITNI [facility] 11-18-2022 13:29-0400 Body temperature 98.71 [degF] SRAVANTHI Nazario MD Work Phone: [facility] 11-18-2022 13:29-0400 Body weight 92.53 kg SRAVANTHI Nazario MD Work Phone: [facility] 11-18-2022 13:29-0400 Diastolic blood pressure 54 mm[Hg] SRAVANTHI Nazario MD Work Phone: [facility] 11-18-2022 13:29-0400 Heart rate 56 /min SRAVANTHI Nazario MD Work Phone: [facility] 11-18-2022 13:29-0400 Respiratory rate 18 /min SRAVANTHI Nazario MD Work Phone: [facility] 11-18-2022 13:29-0400 SaO2% (BldA) [Mass fraction] 96 % SRAVANTHI Nazario MD Work Phone: [facility] 11-18-2022 13:29-0400 Systolic blood pressure 112 mm[Hg] SRAVANTHI Nazario MD Work Phone: [facility] 04-21-2022 15:30-0500 Body temperature 96.69 [degF] SRAVANTHI Nazario MD Work Phone: [facility] 04-21-2022 15:30-0500 Body weight 95.71 kg SRAVANTHI Nazario MD Work Phone: [facility] 04-21-2022 15:30-0500 Diastolic blood pressure 70 mm[Hg] SRAVANTHI Nazario MD Work Phone: [facility] 04-21-2022 15:30-0500 Heart rate 58 /min SRAVANTHI Nazario MD Work Phone: [facility] 04-21-2022 15:30-0500 Respiratory rate 18 /min SRAVANTHI Nazario MD Work Phone: [facility] 04-21-2022 15:30-0500 SaO2% (BldA) [Mass fraction] 98 % SRAVANTHI Nazario MD Work Phone: [facility] 04-21-2022 15:30-0500 Systolic blood pressure 154 mm[Hg] SRAVANTHI Nazario MD Work Phone: [facility] 04-14-2022 15:04-0500 Body temperature 97.59 [degF] SRAVANTHI Nazario MD Work Phone: [facility] 04-14-2022 15:04-0500 Body weight 93.44 kg SRAVANTHI Nazario MD Work Phone: [facility] 04-14-2022 15:04-0500 Diastolic blood pressure 68 mm[Hg] SRAVANTHI Nazario MD Work Phone: [facility] 04-14-2022 15:04-0500 Heart rate 64 /min SRAVANTHI Nazario MD Work Phone: [facility] 04-14-2022 15:04-0500 Respiratory rate 16 /min SRAVANTHI Nazario MD Work Phone: [facility] 04-14-2022 15:04-0500 SaO2% (BldA) [Mass fraction] 97 % SRAVANTHI Nazario MD Work Phone: [facility] 04-14-2022 15:04-0500 Systolic blood pressure 128 mm[Hg] SRAVANTHI Nazario MD Work Phone: [facility] 04-07-2022 11:01-0500 Body temperature 97.39 [degF] SRAVANTHI Nazario MD Work Phone: [facility] 04-07-2022 11:01-0500 Body weight 94.35 kg SRAVANTHI Nazario MD Work Phone: [facility] 04-07-2022 11:01-0500 Diastolic blood pressure 63 mm[Hg] SRAVANTHI Nazario MD Work Phone: [facility] 04-07-2022 11:01-0500 Heart rate 55 /min SRAVANTHI Nazario MD Work Phone: [facility] 04-07-2022 11:01-0500 Respiratory rate 18 /min SRAVANTHI Nazario MD Work Phone: [facility] 04-07-2022 11:01-0500 SaO2% (BldA) [Mass fraction] 98 % SRAVANTHI Nazario MD Work Phone: [facility] 04-07-2022 11:01-0500 Systolic blood pressure 138 mm[Hg] SRAVANTHI Nazario MD Work Phone: [facility] 03-31-2022 15:33-0400 Body temperature 96.69 [degF] SRAVANTHI Nazario MD Work Phone: [facility] 03-31-2022 15:33-0400 Body weight 94.8 kg SRAVANTHI Nazario MD Work Phone: [facility] 03-31-2022 15:33-0400 Diastolic blood pressure 72 mm[Hg] SRAVANTHI Nazario MD Work Phone: [facility] 03-31-2022 15:33-0400 Heart rate 54 /min SRAVANTHI Nazario MD Work Phone: [facility] 03-31-2022 15:33-0400 Respiratory rate 18 /min SRAVANTHI Nazario MD Work Phone: [facility] 03-31-2022 15:33-0400 SaO2% (BldA) [Mass fraction] 97 % SRAVANTHI Nazario MD Work Phone: [facility] 03-31-2022 15:33-0400 Systolic blood pressure 145 mm[Hg] SRAVANTHI Nazario MD Work Phone: [facility] 03-24-2022 16:03-0400 Body temperature 98.01 [degF] SRAVANTHI Nazario MD Work Phone: [facility] 03-24-2022 16:03-0400 Body weight 93.44 kg SRAVANTHI Nazario MD Work Phone: [facility] 03-24-2022 16:03-0400 Diastolic blood pressure 65 mm[Hg] SRAVANTHI Nazario MD Work Phone: [facility] 03-24-2022 16:03-0400 Heart rate 50 /min SRAVANTHI Nazario MD Work Phone: [facility] 03-24-2022 16:03-0400 Respiratory rate 16 /min SRAVANTHI Nazario MD Work Phone: [facility] 03-24-2022 16:03-0400 SaO2% (BldA) [Mass fraction] 100 % SRAVANTHI Nazario MD Work Phone: [facility] 03-24-2022 16:03-0400 Systolic blood pressure 141 mm[Hg] SRAVANTHI Nazario MD Work Phone: [facility] 03-18-2022 11:52-0400 Body temperature 97.9 [degF] SRAVANTHI Nazario MD Work Phone: [facility] 03-18-2022 11:52-0400 Body weight 93.44 kg SRAVANTHI Nazario MD Work Phone: [facility] 03-18-2022 11:52-0400 Diastolic blood pressure 71 mm[Hg] SRAVANTHI Nazario MD Work Phone: [facility] 03-18-2022 11:52-0400 Heart rate 56 /min SRAVANTHI Nazario MD Work Phone: [facility] 03-18-2022 11:52-0400 Respiratory rate 16 /min SRAVANTHI Nazario MD Work Phone: [facility] 03-18-2022 11:52-0400 SaO2% (BldA) [Mass fraction] 96 % SRAVANTHI Nazario MD Work Phone: [facility] 03-18-2022 11:52-0400 Systolic blood pressure 115 mm[Hg] SRAVANTHI Nazario MD Work Phone: [facility] 12-10-2021 09:19-0400 Body height 175.9 cm SRAVANTHI Nazario MD Work Phone: [facility] 12-10-2021 09:19-0400 Body temperature 98.71 [degF] SRAVANTHI Nazario MD Work Phone: [facility] 12-10-2021 09:19-0400 Body weight 94.35 kg SRAVANTHI Nazario MD Work Phone: [facility] 12-10-2021 09:19-0400 Diastolic blood pressure 68 mm[Hg] SRAVANTHI Nazario MD Work Phone: [facility] 12-10-2021 09:19-0400 Heart rate 51 /min SRAVANTHI Nazario MD Work Phone: [facility] 12-10-2021 09:19-0400 Respiratory rate 16 /min SRAVANTHI Nazario MD Work Phone: [facility] 12-10-2021 09:19-0400 SaO2% (BldA) [Mass fraction] 97 % SRAVANTHI Nazario MD Work Phone: [facility] 12-10-2021 09:19-0400 Systolic blood pressure 116 mm[Hg] SRAVANTHI Nazario MD Work Phone: [facility] 11-04-2021 09:48-0400 Blood Pressure Location Barbara JOHNSTON [facility] 11-04-2021 09:48-0400 Diastolic blood pressure 61 mm[Hg] Barbara JOHNSTON [facility] 11-04-2021 09:48-0400 Heart rate 52 /min Barbara JOHNSTON [facility] 11-04-2021 09:48-0400 Systolic blood pressure 123 mm[Hg] Barbara JOHNSTON [facility] 10-24-2021 16:40-0400 Body height 177.8 cm Theo Vivian Other [facility] Other 10-24-2021 16:40-0400 Body mass index (BMI) [Ratio] 29.01 kg/m2 Theo Vivian Other [facility] Other 10-24-2021 16:40-0400 Body temperature 98 [degF] Theo Vivian Other [facility] Other 10-24-2021 16:40-0400 Body weight 91.72 kg Theo Vivian Other [facility] Other 10-24-2021 16:40-0400 Diastolic blood pressure 72 mm[Hg] Theo Vivian Other [facility] Other 10-24-2021 16:40-0400 Respiratory rate 18 /min Theo Vivian Other [facility] Other 10-24-2021 16:40-0400 SaO2% (BldA) [Mass fraction] 96 % Theo Vivian Other [facility] Other 10-24-2021 16:40-0400 Systolic blood pressure 130 mm[Hg] Theo Vivian Other [facility] Other Encounters Encounter Date Encounter Type Care Provider Facility Start: 02-20-2025 End: 02-20-2025 ambulatory Brian Avalos MD Work Phone: [facility] Work Phone: Start: 02-20-2025 End: 02-20-2025 Patient encounter procedure Theo Thakkar MD -[facility] Work Phone: Start: 02-13-2025 End: 02-13-2025 Clinisync Result Encounter Generic External Data Provider [facility] External Department Unsolicited Start: 02-13-2025 End: 02-13-2025 Clinisync Result Encounter Generic External Data Provider [facility] External Department Unsolicited Start: 02-13-2025 Non-patient / Non-visit Theo Thakkar MD -[facility] Work Phone: Start: 01-18-2025 End: 01-18-2025 Office outpatient visit 15 minutes Hyun Nazario MD Work Phone: Radiation Oncology Comment on above: Cancer of prostate w /med recur risk (T2b-c or Nicola 7 or PSA 10-20) (HCC) (Primary Dx) Start: 01-18-2025 End: 01-18-2025 ambulatory Hyun NAAZRIO Facility:[facility] Start: 01-12-2025 End: 01-12-2025 Clinisync Result Encounter Generic External Data Provider [facility] External Department Unsolicited Start: 01-12-2025 End: 01-12-2025 Clinisync Result Encounter Generic External Data Provider [facility] External Department Unsolicited Start: 01-12-2025 End: 01-12-2025 ambulatory Hyun NAZARIO Facility:[facility] Start: 09-12-2024 End: 09-12-2024 Eliseo Avalos MD Work Phone: 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: [facility] Comment on above: Mixed hyperlipidemia (Primary Dx); Bilateral carotid artery disease, unspecified type; Hypertension, unspecified type; BMI 28.0-28.9,adult; Smoker; Prostate cancer (Multi); Chronic kidney disease, stage 3b (Multi); ASHD (arteriosclerotic heart disease); PVD (peripheral vascular disease) (CMS-HCC) Start: 08-29-2024 End: 08-30-2024 ambulatory CLAIRE JAMES Facility:[facility] Start: 08-29-2024 End: 08-30-2024 Lab Drop off CLAIRE JAMES [facility] Start: 08-29-2024 End: 08-29-2024 ambulatory PA-C CLAIRE JAMES Facility:[facility] Start: 08-22-2024 End: 08-23-2024 ambulatory Cherie X Orzech Facility:[facility] Start: 08-22-2024 End: 08-23-2024 Lab Drop off Cherie X Orzech [facility] Start: 08-22-2024 End: 08-22-2024 ambulatory Barbara R PRESTON Facility:[facility] Start: 08-18-2024 End: 08-18-20[facility] Start: 08-15-2024 End: 08-15-2024 ambulatory Brian Avalos MD Work Phone: [facility] Work Phone: Start: 08-15-2024 End: 08-15-2024 Patient encounter procedure Brian Avalos MD Work Phone: [facility] Work Phone: Start: 08-10-2024 End: 08-10-2024 Patient encounter procedure Brian Avalos MD Work Phone: [facility] [place] Work Phone: Start: 08-10-2024 End: 08-10-2024 ambulatory Brian Avalos MD Work Phone: [facility] Work Phone: Start: 08-08-2024 End: 08-08-2024 Lab Drop off CLAIRE JAMES [facility] Start: 08-08-2024 End: 08-08-2024 ambulatory CLAIRE Elbert BRITNI Facility:[facility] Start: 07-14-2024 End: 07-14-2024 Emergency department patient visit Brian Avalos MD Work Phone: [facility]-Emergency Room Work Phone: Start: 07-13-2024 End: 07-13-2024 Bamboo flowsheet Nasir Ward INFORMATICS ANALYST Work Phone: [facility] Start: 07-13-2024 End: 07-13-2024 Bamboo flowsheet Nasir Ward INFORMATICS ANALYST Work Phone: [facility] Start: 07-13-2024 End: 07-13-2024 Office outpatient visit 15 minutes Nasir Ward INFORMATICS ANALYST Work Phone: [facility] Comment on above: Stage 3a chronic kid joe disease (HCC) (CMS/HCC) (Primary Dx); Lumbar stenosis with neurogenic claudication; Mixed hyperlipidemia (CMS/HCC); Primary hypertension (CMS/HCC) Start: 07-13-2024 End: 07-13-2024 ambulatory NASIR WARD Not Available Start: 04-21-2024 End: 04-21-2024 Bamboo flowsheet Nasir Ward INFORMATICS ANALYST Work Phone: [facility] Start: 04-21-2024 End: 04-21-2024 Bamboo flowsheet Nasir Ward INFORMATICS ANALYST Work Phone: [facility] Start: 04-21-2024 End: 04-21-2024 Office outpatient visit 15 minutes Nasir Ward INFORMATICS ANALYST Work Phone: [facility] Comment on above: Mixed hyperlipidemia (CMS/HCC) (Primary Dx); Primary hypertension (CMS/HCC); Stage 3a chronic kidney disease (HCC) (CMS/HCC) Start: 04-21-2024 End: 04-21-2024 ambulatory NASIR WARD Not Available Start: 04-18-2024 End: 04-18-2024 ambulatory Barbara JOHNSTON Facility:[facility] Start: 04-18-2024 End: 04-18-2024 Patient encounter procedure Barbara Warner PRESTON [facility] Start: 04-07-2024 End: 04-07-2024 Lab Drop off Karime J Galea [facility] Start: 04-07-2024 End: 04-07-2024 ambulatory Karime J Galea Facility:[facility] Start: 04-07-2024 End: 04-07-2024 Patient encounter procedure Karime J Galea [facility] Start: 02-29-2024 End: 02-29-2024 ambulatory PHYSICIAN NO [facility] Work Phone: Start: 02-29-2024 End: 02-29-2024 Patient encounter procedure PHYSICIAN NO [facility] Nephrology [place] Work Phone: Start: 02-25-2024 End: 02-25-2024 Patient encounter procedure PHYSICIAN NO [facility] [place] Work Phone: Start: 02-25-2024 End: 02-25-2024 ambulatory PHYSICIAN NO [facility] Work Phone: Start: 02-18-2024 End: 02-18-2024 Refill Sugar ROSAS [facility] Comment on above: Primary hypertension (CMS/HCC) Start: 02-02-2024 End: 02-02-2024 Refill Sugar GILBERT [facility] Comment on above: Primary hypertension (CMS/HCC) Start: 01-20-2024 End: 01-20-2024 Office outpatient visit 25 minutes Nasir Ward INFORMATICS ANALYST Work Phone: [facility] Comment on above: Primary hypertension (CMS/HCC) (Primary Dx); Coronary artery disease involving greenville coronary artery of greenville heart without angina pectoris (CMS/HCC); Stage 3a chronic kidney disease (HCC) (CMS/HCC); Gastroesophageal reflux disease without esophagitis; Tobacco abuse; Prostate cancer (CMS/HCC); Benign prostatic hyperplasia with lower urinary tract symptoms, symptom details unspecified Start: 01-20-2024 End: 01-20-2024 ambulatory NASIR DOUGLASSTRICK Not Available Start: 01-20-2024 End: 01-20-2024 Bamboo flowsheet Nasir Duttonk INFORMATICS ANALYST Work Phone: [facility] Start: 01-20-2024 End: 01-20-2024 Bamboo flowsheet Nasir Douglasstrick INFORMATICS ANALYST Work Phone: [facility] Start: 01-12-2024 End: 01-12-2024 [facility] Start: 12-15-2023 End: 12-15-2023 Patient encounter procedure G oJse Nazario MD Work Phone: Radiation Oncology Comment on above: Prostate cancer (HCC ) (Primary Dx); Stage 3 chronic kidney disease, unspecified whether stage 3a or 3b CKD (HCC) Start: 12-08-2023 End: 12-08-2023 ambulatory SHAIKH DOTTY Not Available Start: 12-02-2023 End: 12-02-2023 ambulatory [facility] Start: 11-17-2023 End: 11-17-2023 Evaluation and management of inpatient [facility] Start: 11-17-2023 End: 11-18-2023 Evaluation and management of inpatient [facility] Start: 11-05-2023 End: 11-05-2023 Encounter for other preprocedural examination [facility] Start: 11-05-2023 End: 11-05-2023 ambulatory [facility] Start: 10-15-2023 End: 10-15-2023 Patient encounter procedure MD Shaikh Storm Work Phone: [facility] Physician [facility] Vascular Surgery Work Phone: Start: 10-01-2023 End: 10-01-2023 ambulatory MD Shaikh Storm Work Phone: [facility] Work Phone: Start: 10-01-2023 End: 10-01-2023 Patient encounter procedure MD Shaikh Storm Work Phone: [facility] [place] Work Phone: Start: 09-28-2023 End: 09-28-2023 ambulatory SHAIKH DOTTY Not Available Start: 09-18-2023 End: 09-18-2023 ambulatory Barbara JOHNSTON Facility:[facility] Start: 09-18-2023 End: 09-18-2023 Patient encounter procedure Barbara JOHNSTON [facility] Start: 09-15-2023 Non-patient / Non-visit MD Yariel Storm Work Phone: [facility] Physician [facility] Work Phone: Start: 09-03-2023 End: 09-03-2023 ambulatory [facility] Start: 09-03-2023 End: 09-03-2023 ambulatory [facility] Start: 09-02-2023 End: 09-02-2023 ambulatory [facility] Start: 08-18-2023 End: 08-18-2023 Office outpatient visit 25 minutes Chaim Grayson DO Work Phone: [facility] Comment on above: Hypertension, unspec ified type; Mixed hyperlipidemia; Bilateral carotid artery disease, unspecified type (CMS/HCC); History of NE (myocardial infarction); BMI 28.0-28.9,adult; ASHD (arteriosclerotic heart disease); PVD (peripheral vascular disease) (CMS/HCC); Smoker; Chest pain, unspecified type Start: 08-10-2023 End: 08-11-2023 ambulatory Adalid Will MD Facility:[facility] Start: 07-07-2023 End: 07-07-2023 ambulatory CLAIRE JAMES Facility:[facility] Start: 06-18-2023 End: 06-19-2023 ambulatory CHAIM GRAYSON [facility] Start: 06-18-2023 End: 06-18-2023 Subsequent hospital visit by physician Tram [facility] Start: 06-12-2023 End: 06-13-2023 ambulatory JOSE NICHOLS Facility:[facility] Start: 06-12-2023 End: 06-12-2023 Office outpatient new 45 minutes Kodi Reynolds MD Work Phone: [facility] [place] Comment on above: Spondylolisthesis of lumbar region (Primary Dx) Start: 06-04-2023 End: 06-04-2023 Office consultation new/estab patient 80 min [facility] Kenan DO Work Phone: [facility] Comment on above: Hypertension, unspec ified type; Stage 3 chronic kidney disease, unspecified whether stage 3a or 3b CKD ([facility]/HCC); Mixed hyperlipidemia; Bilateral carotid artery disease, unspecified type ([facility]); Smoker; Chest pressure Start: 05-21-2023 End: 05-21-2023 ambulatory MD Shaikh Storm Work Phone: [facility] Work Phone: Start: 05-21-2023 End: 05-21-2023 Patient encounter procedure MD Shaikh Storm Work Phone: [facility]-Electrodiagnostics Work Phone: Start: 05-19-2023 Telephone encounter Hyun Nazario MD Work Phone: [facility] Comment on above: Appointment Confirma tion Start: 05-18-2023 ambulatory Jose rinaldi DO Work Phone: [facility] Start: 05-18-2023 Patient encounter procedure Jose Nichols DO Work Phone: Spine Medicine Comment on above: Consultation with a surgeon Start: 04-21-2023 End: 04-21-2023 ambulatory CLAIREJAVIER JAMES Facility:[facility] Start: 04-21-2023 End: 04-21-2023 Lab Drop off CLAIRE JAMES [facility] Start: 04-21-2023 End: 04-21-2023 Patient encounter procedure CLAIRE JAMES [facility] Start: 04-16-2023 Office outpatient vi sit 15 minutes Jose Martin Mchugh [facility] Vascular Surgery Start: 04-16-2023 End: 04-16-2023 ambulatory MD Shaikh Storm Work Phone: [employer] Other Start: 04-16-2023 End: 04-16-2023 Patient encounter procedure MD Shaikh Storm Work Phone: [facility]-Ultrasound [facility] Start: 03-23-2023 End: 03-23-2023 Admission to same day surgery center MD Shaikh Storm Work Phone: [facility]-Interventional Radiology Work Phone: Start: 03-23-2023 End: 03-23-2023 ambulatory MD Shaikh Storm Work Phone: [facility] Work Phone: Start: 03-12-2023 End: 03-12-2023 ambulatory Jose Martin Mchugh Other [facility] Other Start: 03-12-2023 Office outpatient vi sit 25 minutes Jose Martin Mchugh [facility] Vascular Surgery Start: 03-12-2023 Telephone encounter Theo Thakkar [facility] Nephrology Start: 03-09-2023 End: 03-09-2023 ambulatory MD Shaikh Storm Work Phone: [facility] Work Phone: Start: 03-09-2023 End: 03-09-2023 Patient encounter procedure MD Shaikh Storm Work Phone: [facility] [place] Work Phone: Start: 03-05-2023 End: 03-05-2023 ambulatory MD Shaikh Storm Work Phone: [facility] Work Phone: Start: 03-05-2023 End: 03-05-2023 Patient encounter procedure MD Shaikh Storm Work Phone: [facility] [place] Work Phone: Start: 03-04-2023 End: 03-04-2023 ambulatory MD Shaikh Storm Work Phone: [facility] Work Phone: Start: 03-04-2023 End: 03-04-2023 Patient encounter procedure MD Shaikh Storm Work Phone: [facility] [place] Work Phone: Start: 02-20-2023 End: 02-20-2023 Admission to same day surgery center MD Shaikh Storm Work Phone: [facility]Surgery Center [facility] [place] Start: 02-18-2023 End: 02-18-2023 ambulatory Bonnie Tan Other [employer] Other Start: 02-18-2023 Office outpatient ne w 60 minutes Bonnie Tan [facility] Vascular Surgery Start: 02-11-2023 End: 02-11-2023 Patient encounter procedure CALIRE JAMES [facility] Start: 02-06-2023 End: 02-06-2023 ambulatory MD Shaikh Storm Work Phone: [facility] Work Phone: Start: 02-06-2023 End: 02-06-2023 Departed Referred MD Shaikh Storm Work Phone: [facility] [employer] Work Phone: Start: 02-06-2023 End: 02-06-2023 Patient encounter procedure MD Shaikh Storm Work Phone: [facility]Bqx[facility]Oqgkxkvn Testing Work Phone: Start: 01-20-2023 Telephone encounter Constance Durand WORKFORCE ADVISOR H ematology/Oncology Comment on above: Social Work Services Start: 01-19-2023 End: 01-19-2023 Patient encounter procedure Jose Nichols DO Work Phone: Spine Medicine Comment on above: Spinal stenosis, 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); Foraminal stenosis of lumbar region; Peripheral artery disease (HCC); Prostate cancer (HCC) Start: 01-15-2023 Telephone encounter Jose Nichols DO Work Phone: [address] [place] [address] Comment on above: Orders; Appointment Start: 01-09-2023 End: 01-09-2023 ambulatory MD Shaikh Storm Work Phone: [facility] Work Phone: Start: 01-09-2023 End: 01-09-2023 Patient encounter procedure MD Shaikh Storm Work Phone: [facility] [place] Work Phone: Start: 01-06-2023 Telephone encounter Hyun Nazario MD Work Phone: Radiation Oncology Comment on above: Orders Start: 01-05-2023 Telephone encounter Evelyn Chamberlain RN [facility]VENT[facility] RADIOLOG[facility] Comment on above: Patient Question; Ap pointment Start: 12-03-2022 End: 12-03-2022 Patient encounter procedure CLAIRE JAMES [facility] Start: 11-18-2022 Telephone encounter Hyun Nazario MD Work Phone: Cancer Appts Comment [...] claudication present Start: 10-28-2022 End: 10-29-2022 ambulatory Geri DOTTY Facility: Start: 10-09-2022 End: 10-10-2022 ambulatory ALBERTO MONTEROMIEDENILSON . Facility:H1 Start: 07-15-2022 ambulatory RUT Avila ty:H1 Start: 06-06-2022 Telephone encounter Constance Durand [facility] ematology/Oncology Comment on above: Social Work Services Start: 06-05-2022 End: 06-05-2022 Patient encounter procedure Lab/Port Donnie Jama Work Phone: Radiation Oncology Comment on above: Urinary tract infect ion without hematuria, site unspecified (Primary Dx) Start: 05-15-2022 Telephone encounter Hyun Nazario MD Work Phone: Radiation Oncology Comment on above: Results; Appointment Start: 05-15-2022 End: 05-16-[address] HOESA OLIVA . Facility: Start: 05-09-2022 End: 05-09-2022 ambulatory MD Shaikh Storm Work Phone: [facility] Work Phone: Start: 05-09-2022 End: 05-09-2022 Patient encounter procedure MD Shaikh Storm Work Phone: [facility] [place] Start: 04-30-2022 Social Work Constance BROWN Hematolo gy/Oncology Start: 04-23-2022 End: 04-23-2022 ambulatory MD Shaikh Storm Work Phone: [facility] Work Phone: Start: 04-23-2022 End: 04-23-2022 Patient encounter procedure MD Shaikh Storm Work Phone: [facility] [place] Start: 04-23-2022 Radiation Oncology Note G Mahamed [...] 03-27-2022 End: 03-27-2022 Patient encounter procedure Lab/Port Milest Xenia Work Phone: Radiation Oncology Comment on above: [...] encounter procedure Hyun Nazario MD Work Phone: [employer] Start: 03-12-2022 Radiation Oncology Note Hyun Nazario MD Work Phone: Radiation Oncology Comment on above: Treatment Planning Start: 03-12-2022 End: 03-12-2022 Social Work Constance BROWN Hematology/Oncology Start: 03-04-2022 Telephone encounter Constance BROWN H ematology/Oncology Comment on above: Social Work Services Start: 03-03-2022 End: 03-03-2022 Patient encounter procedure Huyn Nazario MD Work Phone: Radiation Oncology Comment on above: Malignant neoplasm o f prostate (HCC) (Primary Dx) Start: 02-25-2022 Telephone encounter Hyun Nazario MD Work Phone: Radiation Oncology Comment on above: Patient Update; Appo intment Start: 02-13-2022 ambulatory Facility:1 [id number] Start: 02-13-2022 End: 02-13-2022 Patient encounter procedure Zeinab Justice [facility] Start: 02-11-2022 End: 02-11-[address] HOSEA OLIVA . Facility:H1 Start: 02-09-2022 Encounter for preprocedural laboratory examination DR HOSEA OLIVA . [facility] Start: 02-07-2022 Telephone encounter Hyun [...] encounter procedure Barbara JOHNSTON [facility] Start: 10-24-2021 End: 10-24-2021 ambulatory Theo Vivian Other [facility] [employer] Other Start: 10-24-2021 Office outpatient ne w 45 minutes Theo Vivian [facility] Procedures Date Procedure Procedure Detail Performing Clinician Start: 02-13-2025 [facility] CBC WITH PLATEL ET NO DIFFERENTIAL Generic External Data Provider Start: 01-12-2025 [facility] PSA SERPL-[facility] Gene alvin External Data Provider Start: 08-18-2024 Follow-up visit Follow-up JOELLEN BENÍTEZ Start: 08-10-2024 Urine culture Brian doyle MD Work Phone: Start: 02-25-2024 Urine culture PHYSICIAN NO FAMILY Start: 10-31-2023 Procedure on back Patri cheryl JOHNSTON Start: 08-18-2023 Ecg routine ecg w/le ast 12 lds w/i&r Chaim Grayson DO Work Phone: Start: 06-18-2023 NUCLEAR STRESS TEST NGOZI GRAYSON Start: 06-18-2023 Cv strs tst xers&/or rx cont ecg trcg only Chaim Grayson [employer] Work Phone: Start: 06-04-2023 Ecg routine ecg w/le ast 12 lds w/i&r Chaim Garyson DO Work Phone: Start: 04-16-2023 Ankle brachial [...] Author Start: 11-17-2026 Diabetes Screening Diabetes Screening [facility] Start: 06-10-2026 Diabetes Screening Diabetes Screening [facility] Start: 08-30-2025 End: 08-30-2025 Patient encounter procedure 08/30/2025 10:00 AM EDT Office Visit [facility] [address] [place] [address] Chaim Grayson DO [address] [facility] [address] [place] [address] [facility] Start: 04-21-2025 ambulatory Ambulatory Facility:[facility] Start: 04-20-2025 End: 07-20-2025 Prostate specific Ag [Mass/volume] in Serum or Plasma PROSTATE-SPECIFIC ANTIGEN DIAGNOSTIC Lab Routine Cancer of prostate w/med recur risk (T2b-c or Nicola 7 or PSA 10-20) (HCC) Expected: 04/20/2025, Expires: 07/20/2025 [facility] Work Phone: Comment on above: Expected: 04/20/2025, Expires: Start: 04-20-2025 End: 04-20-2025 Patient encounter procedure 04/20/2025 9:45 AM EST Office Visit Radiation Oncology [address] [place] [address] [place] [address] Hyun Nazario MD [address] [place] [address] [place] [address] 3 month follow up Radiation Oncology Comment on above: 3 month follow up Start: 01-30-2025 Influenza vaccination [facility] Start: 12-14-2024 End: 03-15-2025 Prostate specific Ag [Mass/volume] in Serum or Plasma PROSTATE-SPECIFIC ANTIGEN DIAGNOSTIC Lab Routine Prostate cancer (HCC) Expected: 12/14/2024, Expires: 03/15/2025 [facility] Work Phone: Comment on above: Expected: 12/14/2024, Expires: Start: 12-13-2024 End: 12-13-2024 Patient encounter procedure 12/13/2024 1:15 PM EDT Office Visit Radiation Oncology [address] [facility] [place] [address] Hyun Nazario MD [address] [place] [address] [place] [address] 1 yr rv Radiation Oncology Comment on above: 1 yr rv Start: 12-07-2024 Medicare Annual Wellness (AWV) Medicare Annual Wellness (AWV) [facility] Start: 12-06-2024 End: 12-06-2024 Patient encounter procedure 12/06/2024 1:00 PM EDT Office Visit [facility] [address] [place] [address] [place] [address] [address] [facility] Comment on above: Lab Start: 11-17-2024 Complete blood count Hemoglobin/Hematocrit [facility] Start: 11-17-2024 Creatinine measurement Serum Creatinine [facility] Start: 09-29-2024 End: 09-29-2024 Patient encounter procedure 09/29/2024 10:00 AM EDT Office Visit [facility] [address] [place] [phone] Nasir Ward, VALENTIN [address] [place] [address] [facility] Start: 08-18-2024 End: 08-18-2024 Patient encounter procedure 08/18/2024 10:00 AM EDT Office Visit [facility] [address] [place] [id number] Chaim Grayson DO [address] [place] [address] [facility] Start: 08-10-2024 Bacteria identified in Urine by Culture Urine Culture [facility] Start: 08-10-2024 Urine culture [facility] Start: 07-13-2024 End: 07-13-2024 [facility] Comment on above: Arrived Start: 06-10-2024 Creatinine measurement Serum Creatinine [facility] Start: 06-01-2024 Advance Directive Discussion Advance Directive Discussion [facility] Start: 06-01-2024 Medicare Advantage Annual Wellness Visit Medicare Advantage Annual Wellness Visit [facility] Start: 04-21-2024 End: 04-21-2024 Patient encounter procedure [facility] Comment on above: Arrived Start: 02-25-2024 Bacteria identified in Urine by Culture [facility] Start: 01-31-2024 Covid-19 Vaccine () Covid-19 Vaccine () [facility] Start: 01-31-2024 Influenza vaccination Influ[facility] Start: 01-20-2024 End: 01-20-2024 Patient encounter procedure 01/20/2024 6:00 PM EDT Office Visit [facility] [address] [place] [address] Nasir Ward NP [address] [place] [address] Primary hypertension (CMS/HCC) (Primary Dx); Coronary artery disease involving greenville coronary artery of greenville heart without angina pectoris (CMS/HCC); Stage 3a chronic kidney disease (HCC) (CMS/HCC); Gastroesophageal reflux disease without esophagitis [facility] Comment on above: Primary hypertension (CMS/HCC) (Primary Dx); Coronary artery disease involving greenville coronary artery of greenville heart without angina pectoris (CMS/HCC); Stage 3a chronic kidney disease (HCC) (CMS/HCC); Gastroesophageal reflux disease without esophagitis Start: 10-15-2023 Ankle brachial pressure index [facility] Start: 08-18-2023 End: 08-18-2023 Patient encounter procedure 08/18/2023 11:10 AM EDT Office Visit [address] [place] [phone] Chaim Grayson DO [address] [facility] [address] [place] [address] [facility] Start: 07-08-2023 End: 07-08-2023 Clinical Support 07/08/2023 10:30 AM EST Clinical Support [address] [place] [id number] [facility] Start: 06-04-2023 End: 06-04-2024 Alanine aminotransferase [Enzymatic activity/volume] in Serum or Plasma by With P-5'-P Alanine Aminotransferase Lab Routine Hypertension, unspecified type Bilateral carotid artery disease, unspecified type (CMS/HCC) Expected: 06/04/2023 (Approximate), Expires: 06/04/2024 [facility] Work Phone: Comment on above: Expected: 06/04/2023 (Approximate), Expi res: 06/04/2024 Start: 06-04-2023 End: 06-04-2024 Aspartate aminotransferase [Enzymatic activity/volume] in Serum or Plasma by With P-5'-P Aspartate Aminotransferase Lab Routine Hypertension, unspecified type Bilateral carotid artery disease, unspecified type (CMS/HCC) Expected: 06/04/2023 (Approximate), Expires: 06/04/2024 [facility] Work Phone: Comment on above: Expected: 06/04/2023 (Approximate), Expi res: 06/04/2024 Start: 06-04-2023 End: 06-04-2024 Basic metabolic 2000 panel - Serum or Plasma Basic Metabolic Panel Lab Routine Hypertension, unspecified type Mixed hyperlipidemia Expected: 06/04/2023 (Approximate), Expires: 06/04/2024 [facility] Work Phone: Comment on above: Expected: 06/04/2023 (Approximate), Expi res: 06/04/2024 Start: 06-04-2023 End: 06-04-2024 Lipid 1996 panel - Serum or Plasma Lipid Panel Lab Routine Mixed hyperlipidemia Expected: 06/04/2023 (Approximate), Expires: 06/04/2024 [facility] Work Phone: Comment on above: Expected: 06/04/2023 (Approximate), Expi res: 06/04/2024 Start: 06-04-2023 End: 06-04-2025 NM Heart Perfusion W stress and W radionuclide IV Nuclear Stress Test Cardiac Nuclear Medicine Routine Hypertension, unspecified type Bilateral carotid artery disease, unspecified type (CMS/HCC) Chest pressure Expected: 06/04/2023 (Approximate), Expires: 06/04/2025 [facility] Service Area Work Phone: Comment on above: Expected: 06/04/2023 (Approximate), Expi res: 06/04/2025 Start: 06-01-2023 Advance Directive Discussion Advance Directive Discussion [facility] Start: 06-01-2023 Behavioral Health Screening Behavioral Health Screening [facility] Start: 06-01-2023 Depression Assessment Depression Assessment [facility] Start: 05-20-2023 End: 07-20-2023 Prostate specific Ag [Mass/volume] in Serum or Plasma PSA/PROSTSPECAG DIAG Lab Routine History of prostate cancer Expected: 05/20/2023, Expires: 07/20/2023 [facility] Work Phone: Comment on above: Expected: 05/20/2023, Expires: Start: 03-27-2023 Complete blood count Hemoglobin/Hematocrit [facility] Start: 03-27-2023 HEMOGLOBIN/HEMATOCRIT HEMOGLOBIN/HEMATOCRIT [facility] Start: 03-23-2023 [facility] Start: 03-09-2023 Bacteria identified in Urine by Culture [facility] Start: 03-05-2023 Pulse volume recorder plethysmography [facility] Start: 02-20-2023 End: 02-20-2023 [facility] Start: 01-30-2023 Covid-19 Vaccine (2022- season) Covid-19 Vaccine ( season) [facility] Start: 01-30-2023 Influenza vaccination [facility] Start: 06-03-2022 End: 08-03-2022 Bacteria identified in Urine by Culture URINE CULTURE Microbiology Routine Hematuria, unspecified type Malignant neoplasm of prostate (HCC) Expected: 06/03/2022 (Approximate), Expires: 08/03/2022 [facility] Work Phone: Comment on above: Expected: 06/03/2022 (Approximate), Expi res: 08/03/2022 Start: 06-03-2022 End: 08-03-2022 UA DIP B/O UA DIP B/O Lab Routine Hematuria, unspecified type Malignant neoplasm of prostate (HCC) Expected: 06/03/2022 (Approximate), Expires: 08/03/2022 [facility] Work Phone: Comment on above: Expected: 06/03/2022 (Approximate), Expi res: 08/03/2022 Start: 06-01-2022 ADVANCE DIRECTIVE DISCUSSION ADVANCE DIRECTIVE DISCUSSION [facility] Start: 06-01-2022 DEPRESSION ASSESSMENT DEPRESSION ASSESSMENT [facility] Start: 04-21-2022 End: 06-21-2022 Prostate specific Ag [Mass/volume] in Serum or Plasma PSA/PROSTSPECAG DIAG Lab Routine Malignant neoplasm of prostate (HCC) Expected: 04/21/2022, Expires: 06/21/2022 [facility] Work Phone: Comment on above: Expected: 04/21/2022, Expires: 3 Start: 03-27-2022 End: 03-18-2023 CBC W Auto Differential panel - Blood CBC + DIFF Lab Routine Malignant neoplasm of prostate (HCC) Expected: 03/27/2022, Expires: 03/18/2023 [facility] Work Phone: Comment on above: Expected: 03/27/2022, Expires: 3 Start: 01-30-2022 Influenza vaccination INFLUENZA (#1) [facility] Start: 06-01-2021 ADVANCE DIRECTIVE DISCUSSION ADVANCE DIRECTIVE DISCUSSION [facility] Start: 06-01-2021 DEPRESSION ASSESSMENT DEPRESSION ASSESSMENT [facility] Start: 12-23-2020 COVID-19 VACCINE (3 - Booster for Moderna series) COVID-19 VACCINE (3 - Booster for Moderna series) [facility] Start: 09-20-2020 COVID-19 VACCINE (3 - Booster for Moderna series) COVID-19 VACCINE (3 - Booster for Moderna series) [facility] Start: 09-20-2020 COVID-19 VACCINE (3 - Moderna series) COVID-19 VACCINE (3 - Moderna series) [facility] Start: 09-20-2020 COVID-19 VACCINE (4 - Booster) COVID-19 VACCINE (4 - Booster) [facility] Start: 09-20-2020 COVID-19 Vaccine (4 - Moderna series) COVID-19 Vaccine (4 - Moderna series) [facility] Start: 2020 RSV High Risk: (Elderly (60+) or Population) (1 - 1-dose 75+ series) RSV High Risk: (Elderly (60+) or Population) (1 - 1-dose 75+ series) [facility] Start: 2020 RSV Vaccine (1 - 1-dose 75+ series) RSV Vaccine (1 - 1-dose 75+ series) [facility] Start: 2005 RSV Vaccine (1 - 1-dose 60+ series) RSV Vaccine (1 - 1-dose 60+ series) [facility] Start: 1995 Influenza vaccination LUNG CANCER SCREENING [facility] Start: 1995 Screening for malignant neoplasm of lung Lung Cancer Screening [facility] Start: 1995 SHINGRIX VACCINE (1 of 2) SHINGRIX VACCINE (1 of 2) [facility] Start: 1995 Zoster Vaccines (1 of 2) Zoster Vaccines (1 of 2) [facility] Start: 1990 DIABETES SCREEN DIABETES SCREEN [facility] Start: 1990 Diabetes Screening Diabetes Screening [facility] Start: 1967 DTaP/Tdap/Td Vaccines (1 - Tdap) DTaP/Tdap/Td Vaccines (1 - Tdap) [facility] Start: 1964 Pneumococcal vaccination Pneumococcal Vaccine (1 of 2 - PCV) [facility] Start: 1964 Pneumococcal Vaccine: 50+ (1 of 2 - PCV) Pneumococcal Vaccine: 50+ (1 of 2 - PCV) [facility] Start: 1964 Pneumococcal Vaccine: 65+ Years (1 of 2 - PCV) Pneumococcal Vaccine: 65+ Years (1 of 2 - PCV) [facility] Start: 1964 Urine microalbumin profile [facility] Start: 1964 Urine screening for protein CKD: Urine Protein Screening [facility] Start: 1963 ANNUAL PCP TEAM CHRONIC DISEASE VISIT ANNUAL PCP TEAM CHRONIC DISEASE VISIT [facility] Start: 1963 Anxiety Screening Anxiety Screening [facility] Start: 1963 Creatinine measurement Serum Creatinine [facility] Start: 1963 Depression Screening Depression Screening [facility] Start: 1963 HEPATITIS C SCREENING HEPATITIS C SCREENING [facility] Start: 1963 Hepatitis C screening Hepatitis C Screening [facility] Start: 1963 SERUM CREATININE SERUM CREATININE [facility] Start: 1957 Adult depression screening assessment DEPRESSION SCREENING [facility] Start: 1951 Pneumococcal Vaccine: 65+ (1 - PCV) Pneumococcal Vaccine: 65+ (1 - PCV) [facility] Start: 1951 Pneumococcal Vaccine: 65+ (1 of 2 - PCV) Pneumococcal Vaccine: 65+ (1 of 2 - PCV) [facility] Start: 1951 Pneumococcal Vaccine: 65+ Years (1 - PCV) Pneumococcal Vaccine: 65+ Years (1 - PCV) [facility] Start: 1951 Pneumococcal Vaccine: 65+ Years (1 of 2 - PCV) Pneumococcal Vaccine: 65+ Years (1 of 2 - PCV) [facility] Start: 1951 PNEUMOCOCCAL: 65+ (1 - PCV) PNEUMOCOCCAL: 65+ (1 - PCV) [facility] Start: 1945 Lipid panel Lipid Panel [facility] Start: 1945 Medicare Annual Wellness Visit Medicare Annual Wellness Visit (AWV) [facility] CBC W Auto Different ial panel - Blood CBC and differential Lab Routine Stage 3a chronic kidney disease (HCC) (CMS/HCC) Ordered: 07/13/[address] [facility] Work Phone: Comment on above: Ordered: 07/13/2024 Comprehensive metabo lic 2000 panel - Serum or Plasma Comprehensive metabolic panel Lab Routine Stage 3a chronic kidney disease (HCC) (CMS/HCC) Ordered: 07/13/[address] [facility] Comment on above: Ordered: 07/13/2024 CT SIM PLANNING RADI ATION ONCOLOGY CT SIM PLANNING RADIATION ONCOLOGY Radiology Routine Malignant neoplasm of prostate (HCC) Ordered: 03/03/2022 [facility] Work Phone: Comment on above: Ordered: 03/03/2022 End: 12-19-2023 Mri spinal canal lumbar w/o & w/contr matrl MRI LUMBAR SPINE WO/W IVCON Radiology Routine Spinal stenosis of lumbar region, unspecified whether neurogenic claudication present 1 Occurrences starting 11/19/2022 until 12/19/2023 [facility] Work Phone: Comment on above: 1 Occurrences starting 11/19/2022 until 12/19/2023 End: 12-21-2023 Mri spinal canal lumbar w/o & w/contr matrl MRI LUMBAR SPINE WO/W IVCON Radiology Routine Spinal stenosis of lumbar region without neurogenic claudication 1 Occurrences starting 11/21/2022 until 12/21/2023 [facility] Work Phone: Comment on above: 1 Occurrences starting 11/21/2022 until 12/21/2023 End: 02-05-2024 Mri spinal canal lumbar w/o & w/contr matrl MRI LUMBAR SPINE WO/W IVCON Radiology Routine Spinal stenosis of lumbar region, unspecified whether neurogenic claudication present 1 Occurrences starting 01/06/2023 until 02/05/2024 [facility] Work Phone: Comment on above: 1 Occurrences starting 01/06/2023 until 02/05/2024 Patient Education [facility] Work Phone: Patient referral [facility] Work Phone: Renal function 2000 panel - Serum or Plasma [facility] Renal function 1999 panel - Serum or Plasma [facility] Renal function 1999 panel - Serum or Plasma [facility] Immunizations Immunization Date Immunization Notes Care Provider Fa jed 07-26-2020 SARS-CoV-2 (COVID-19 ) mRNA-1273 vaccine Barbara JOHNSTON [facility] 06-28-2020 SARS-CoV-2 (COVID-19 ) mRNA-1273 vaccine Barbara JOHNSTON [facility] 06-25-2020 COVID-19 mRNA-1273 (Moderna) MD Shaikh Storm Work Phone: [facility] NEGATED: Highlighted row has not occurred!04-21-2023 influenza virus vaccine, unspecified formulation CLAIRE JAMES [facility] Payers Date Payer Category Payer Unknown [id number] 2024 Unknown [id number] 2024 Unknown [id number] 2022 Medicare (Managed Care) 1.2. [id number] 2022 Private Health Insurance [id number] 2021 Medicare HUMANA MEDICARE HUMANA GOLD PLUS [id number] 2021-Present [phone] [address] [address] [place] [address] O [id number]. [id number] 2021 Medicare [id number]. [id number] 1959 Private Health Insurance [id number] 2.16.840.1.000925.19 1959 Self-pay [id number] 1945 Unknown [id number] 2.16.840.1.637290.3.579.2. 356 1945 Unknown [id number] 2.16.840.1.456887.3.579.2. 593 1945 Unknown [id number] 2.16.840.1.603294.3.579.2. 593 1945 Unknown [id number] 2.16.840.1.203226.3.579.2. 593 1945 Unknown [id number] 2.16.840.1.986567.3.579.2. 593 1945 Unknown [id number] 2.16.840.1.847142.3.579.2. 593 1945 Unknown [id number] 2.16.840.1.127391.3.579.2. 593 1945 Unknown [id number] 2.16.840.1.669081.3.579.2. 593 1945 Unknown [id number] 2.16.840.1.314911.3.579.2. 593 1945 Unknown [id number] 2.16.840.1.327949.3.579.2. 593 1945 Unknown [id number] 2.16.840.1.304280.3.579.2. 593 1945 Unknown [id number] 2.16.840.1.442365.3.579.2. 593 1945 Unknown [id number] 2.16.840.1.946865.3.579.2. 593 1945 Unknown [id number] 2.16.840.1.162239.3.579.2. 593 1945 Unknown [id number] 2.16.840.1.484997.3.579.2. 593 1945 Unknown [id number] 2.16.840.1.762779.3.579.2. 1246 1945 Unknown [id number] 2.16.840.1.442270.3.579.2. 1246 1945 Unknown [id number] 2.16.840.1.233474.3.579.2. 1246 1945 Unknown [id number] 2.16.840.1.241010.3.579.2. 1246 1945 Unknown [id number] 2.16.840.1.877985.3.579.2. 1246 1945 Unknown [id number] 2.16.840.1.889073.3.579.2. 196 1945 Unknown [id number] 2.16.840.1.495272.3.579.2. 727 1945 Unknown [id number] 2.16.840.1.253758.3.579.2. 727 1945 Unknown [id number] 2.16.840.1.244781.3.579.2. 727 1945 Unknown [id number] 2.16.840.1.620884.3.579.2. 727 1945 Unknown [id number] 2.16.840.1.559842.3.579.2. 72 1945 Unknown [id number] 2.16.840.1.964810.3.579.2. 727 1945 Unknown [id number] 2.16.840.1.345923.3.579.2. 727 1945 Unknown [id number] 2.16.840.1.704633.3.579.2. 1259 1945 Unknown [id number] 2.16.840.1.975793.3.579.2. 125 1945 Unknown [id number] 2.16.840.1.914317.3.579.2. 1259 1945 Unknown [id number] 2.16.840.1.706258.3.579.2. 1259 1945 Unknown [id number] 2.16.840.1.734462.3.579.2. 1259 1945 Unknown [id number] 2.16.840.1.259781.3.579.2. 72 1945 Unknown [id number] 2.16.840.1.840962.3.579.2. 727 1945 Unknown [id number] 2.16.840.1.868625.3.579.2. 727 1945 Unknown [id number] 2.16.840.1.195027.3.579.2. 727 1945 Unknown [id number] 2.16.840.1.889076.3.579.2. 727 1945 Unknown [id number] 2.16.840.1.283795.3.579.2. 727 1945 Unknown [id number] 2.16.840.1.498958.3.579.2. 727 1945 Unknown [id number] 2.16.840.1.494128.3.579.2. 1244 1945 Unknown [id number] 2.16.840.1.924753.3.579.2. 727 Unknown HCAP/HFA/FAP Active [id number] Unknown [id number] 2.16.840.1.683699.3.579.2. 531 Unknown [id number] 2.16.840.1.017361.3.579.2. 531 Unknown [id number] 2.16.840.1.606941.3.579.2. 531 Social History Date Type Detail Facility Start: 11-04-2021 End: 08-29-2024 Tobacco smoking status Heavy tobacco smoker (finding) [facility] Start: 11-26-2021 End: 07-14-2024 Tobacco smoking status Smoker (finding) [facility] Start: 05-13-2022 End: 01-20-2024 Sex Assigned At Male [facility] Start: 12-10-2021 End: 02-20-2025 Tobacco smoking status NHIS Smokes tobacco daily [facility] Start: 12-10-2021 End: 01-20-2024 Cigarettes smoked current (pack per day) - Reported 1 [facility] Start: 12-10-2021 End: 12-08-2023 Tobacco use and exposure Smokeless tobacco non-user [facility] Start: 12-10-2021 End: 07-13-2024 Alcohol intake Ex-drinker (finding) [facility] Start: 12-10-2021 End: 03-18-2022 Tobacco Comment 2 ppd x 20 yrs, 1 ppd x 40 yrs [facility] Start: 1945 Sex Assigned At Not on file [facility] Start: 11-30-2021 End: 08-30-2024 Exposure to SARS-CoV-2 (event) Not sure [facility] History of tobacco use Cigarette Smoker [facility] Start: 1945 Sex Assigned At Male [facility] Start: 12-06-2021 Tobacco smoking status Never [facility] Start: 01-15-2023 Gender identity Identifies as male gender (finding) [facility] Start: 01-15-2023 Sexual orientation Heterosexual (finding) [facility] Start: 06-04-2023 Tobacco Comment Trying to quit [facility] Work Phone: History of tobacco use Passive smoker [facility] How often to you hav e a drink containing alcohol? Never [facility] In the past 12 month s, was there a time when you were not able to pay the mortgage or rent on time? No [facility] Start: 06-29-2023 Tobacco Comment Pt down to 4 per day, required to quit smoking before back surgery could be done. [facility] Start: 04-27-2023 Alcohol Comment former [facility] Start: 07-14-2024 End: 08-15-2024 Sex Male (finding) [facility] Sexual Orientation [facility] Start: 08-30-2024 Alcoholic beverage intake Lifetime non-drinker (finding) [facility] Work Phone: Medical Equipment Procedure Code Equipment Code Equipment Origin al Text Equipment Identifier Dates Angiogram, lower extremity, left Multiple peripheral artery stent, bare-metal ([id number] [facility] Start: 03-23-2023 Goals Date Patient Goal Desired Activity /State Functional Status Date Assessment Result Facility 04-18-2024 Functional Status N/A [facility] 09-18-2023 Functional Status N/A [facility] 04-21-2023 Functional Status N/A [facility] 02-11-2023 Functional Status N/A [facility] 12-03-2022 Functional Status N/A [facility] Clinical Notes 10-24-2021 to 01-18-2025 Note Date & Type Note Facility 01-18-2025 Evaluation note Diagnosis Cancer of prostate w/med recur risk (T2b-c or Nicola 7 or PSA 10-20) (HCC)- Primary Malignant neoplasm of prostate documented in this encounter [facility]08-20-2025 History of Present illness Narrative* Hyun Nazario MD - 01/18/2025 9:45 AM EDT Radiation Oncology - Follow Up Note PATIENT NAME: Yesenia Broussard PATIENT DIAGNOSIS: Prostate adenocarcinoma, initial PSA 9.95, biopsy Oak [place] score 3 + 4 = 7 (grade [...] by: Hyun Nazario MD cc: Shaikh Dotty [facility] [place] [address] * Kelly Hector MA - 01/18/2025 9:32 AM EDT AUA=6 [facility]25 NoteHNO ID: [id number] Author: Hyun NAZARIO MD Service: ? Author [...] ASSESSMENT/PLAN: Prostate adenocarcinoma, initial PSA 9.95, biopsy [place] score 3 + 4 = 7 (grade [...] by: Hyun Nazario MD cc: Shaikh Dotty [address] [place] [address] [facility] NoteHNO ID: [id number] Author: KELLY HECTOR MA Service: ? Author Type: Knifeman Type: Progress Notes Filed: 01/18/2025 09:49 Note Text: AUA=[address] [place], [place] [address]2304-14-2025 Evaluation note* Diagnosis Primary hypertension (CMS/HCC)- Primary [...] neoplasm of prostate Coronary artery disease involving greenville coronary artery of greenville heart without angina pectoris (CMS/HCC) H/O prostate cancer Mixed hyperlipidemia (CMS/HCC) Mixed hyperlipidemia Chronic bilateral low back pain with bilateral sciatica Coronary artery disease involving greenville coronary artery of greenville heart without angina pectoris (CMS/HCC)- Primary PAD (peripheral artery disease) (CMS/HCC) Unspecified peripheral vascular disease Primary hypertension (CMS/HCC) Unspecified essential hypertension Stage 3a chronic kidney disease (HCC) (CMS/HCC) Lumbar stenosis with neurogenic claudication Mixed hyperlipidemia (CMS/HCC) Mixed hyperlipidemia Elevated random blood glucose level Unintentional weight change Gastroesophageal reflux disease without esophagitis Esophageal reflux Coronary artery disease involving greenville coronary artery of greenville heart without angina pectoris (CMS/HCC)- Primary Stage 3a chronic kidney disease (HCC) (CMS/HCC) Lumbar stenosis with neurogenic claudication Primary hypertension (CMS/HCC)- Primary Unspecified essential hypertension Coronary artery disease involving greenville coronary artery of greenville heart without angina pectoris (CMS/HCC) Stage 3a [...] Unspecified essential hypertension documented in this encounter [facility] LouisZwiergtbul41-19-8611 Evaluation + Plan note* Assessment & Plan Note - MIKKI Montejo - 08/30/2024 1:10 PM EDTAssociated Problem(s): Chronic kidney disease, stage 3b (Multi) Follows routinely with nephrology September 2024 creatinine 1.7 [facility] Work Phone: [phone]) 476-446904-01-2025 Evaluation + Plan note* Assessment & Plan Note - MIKKI Montejo - 08/30/2024 1:10 PM EDTAssociated Problem(s): BMI 28.0-28.9,adult Reviewed the merits of healthy lifestyle choices on overall cardiovascular health. 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 Follows routinely with vascular Denies claudication [facility] Work Phone: 1([phone]) 444-334004-01-2025 Evaluation + Plan note* Assessment & Plan Note - MIKKI Montejo - 08/30/2024 1:10 PM EDTAssociated Problem(s): Carotid artery disease Bilateral carotid endarterectomy Managed by local vascular team [facility] Work Phone: [phone]) 803-829304-01-2025 Miscellaneous Notes* Assessment & Plan Note - [...] EDT Associated Problem(s): PVD (peripheral vascular disease) ([facility]) 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 [facility]: [phone]) 506-867304-01-2025 Evaluation + Plan note* Assessment & Plan Note - MIKKI Montejo - 08/30/2024 1:09 PM EDTAssociated Problem(s): Hypertension Optimal in office [facility] Work Phone: [phone] Evaluation + Plan note* Assessment & Plan Note - MIKKI Montejo - 08/30/2024 1:09 PM EDTAssociated Problem(s): HLD (hyperlipidemia) Moderate intensity statin September 2023 LDL 81, HDL 38 [facility] Work Phone: [phone] Evaluation + Plan note* Assessment & Plan Note - MIKKI Montejo - 08/30/2024 1:09 PM EDTAssociated Problem(s): ASHD (arteriosclerotic heart disease) Mid 90 Inferior STEMI in [place] Jun 2023 MPI No ischemia/no infarct TID ration 1.10 EF 58% Current daily activity > 4 METs without concerning symptoms [facility] Work Phone: [phone] Evaluation + Plan note* Assessment & Plan Note - MIKKI Montejo - 08/30/2024 11:27 AM EDTAssociated Problem(s): Smoker Down to less than a pack per day In past: did have benefit nicoderm patches and chantix. Continued every day tobacco use. Have reviewed the negative cardiovascular impact of nicotine. Continues to decline pharmacological assistance. [facility] Work Phone: [phone] History of Present illness Narrative* MIKKI Montejo - 08/30/2024 11:00 AM EDT Chief Complaint [...] Allergen Reactions Ezetimibe GI intolerance and Nausea/vomiting Cxzwsal-Rjc-Cdk Reductase Inhibitors Other Muscle/Joint Pain Current Outpatient Medications Medication Instructions amLODIPine (NORVASC) 10 mg, Daily before breakfast aspirin 81 mg, Daily RT clopidogrel (Plavix) 75 mg tablet 1 tablet, Daily RT ergocalciferol (Vitamin D-2) 1.25 MG (80798 UT) capsule 1 capsule, Once Weekly HYDROcodone-acetaminophen (Marion) 7.5-325 mg tablet 1 tablet, 3 times [...] (arteriosclerotic heart disease) Mid Inferior STEMI in [place] Jun 2023 MPI No ischemia/no infarct TID ration 1.10 EF 58% Current daily activity > 4 METs without concerning symptoms HLD (hyperlipidemia) Moderate intensity statin September 2023 LDL 81, HDL 38 Hypertension Optimal in office Carotid artery disease Bilateral carotid endarterectomy Managed by local vascular team PVD (peripheral vascular disease) ([facility]) 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 Jose Hector MSN, SPOTLIGHT OPERATOR-GRINDER MACHINE SETTER, PMHNP-[facility] [place], [place] Please excuse any errors in grammar or translation related to this dictation. Voice recognition software was utilized to prepare this document. [facility]: [phone] Instructions* Patient Instructions* MIKKI Montejo - 08/30/2024 [...] if new symptoms arise. Dr. Grayson annual You need to stop smoking. Though it is not easy, more than half of all adults smokers have quit. Weencourage you to write down all the reasons you should quit smoking and set a quit date for yourself. Ask us how we can help. You may also call 6-747-JMDR-NOW for free resources and assistance. [facility] Work Phone: [phone]) 384-817503-31-2025 NotePatient Education Urology Hematuria, Adult Hematuria is [...] these instructions at home: Medicines ??? Take cqeu-kql-diluxpw and prescription medicines only as told by [...] the blood stops without treatment. ??? Take lzic-cjn-lehxxrj and prescription medicines only as told by your health care provider. ??? Drink enough fluid to keep your urine pale yellow. This information is not intended to replace advice given to you by your health care provider. Make sure you discuss any questions you have with your health care provider. Document Revised: 01/16/2021 Document Reviewed: 01/16/2021 [employer] Patient Education ? 2023 [employer] 08-18-2024 NoteSUBJECTIVE: Chief complaint: Return visit [...] been able to decrease his dose of Marion, which he has been on for many years. He notes that when he tries to stop the Marion completely, he experiences increased pain in his [...] , Rfl: ergocalciferol (Vitamin D-2) 1.25 MG (24126 Units) capsule, Take 1,250 mcg by mouth 1 (one) time per week., Disp: , Rfl: HYDROcodone-acetaminophen (Marion) 7.5-325 mg tablet, 1 tablet., Disp: , [...] Reactions Ezetimibe GI intolerance Other reaction(s): Nausea/vomiting Eqezziw-Iyd-Atn Reductase Inhibitors Other Muscle/Joint Pain Other Reaction(s): [...] bulk appropriate for age (more content not included)...[facility] 08-08-2024 NotePatient Education Urology Hematuria, Adult [...] these instructions at home: Medicines ??? Take zdaf-eig-swygzhs and prescription medicines only as told by [...] the blood stops without treatment. ??? Take veri-zth-zlhjvqx and prescription medicines only as told by your health care provider. ??? Drink enough fluid to keep your urine pale yellow. This information is not intended to replace advice given to you by your health care provider. Make sure you discuss any questions you have with your health care provider. Document Revised: 01/16/2021 Document Reviewed: 01/16/2021 [employer] Patient Education ? 2023 [employer] 07-14-2024 Hospital Discharge instructions Additional Instructions Begin taking topical antibiotic as prescribed. Encourage you follow-up with your mixing and molding machine operator within 24 to 48 hours to ensure proper healing. It is very important that you follow up with your primary care provider in the next 2-3 days unless instructed to do otherwise. If you do not have a primary care provider, you can contact [facility] and ask about being established for primary care services. If you require specialist follow up, such as with an orthopedic physician, wheel polisher, urologist, or other medical specialty, you should [...] should first take Tylenol or ibuprofen available mjan-vff-ycehxhn. Medications, if prescribed to treat pain from [...] ED or if you have any other [facility] Work Phone: [phone]) [phone] History of Present illness Narrative* Nasir Ward [...] for Lumbar Stenosis. Recently reduced dosage of Marion. Feels symptoms are well controlled. Continue current [...] CHOLESTEROL mg/dL 16 CHOL/HDL RATIO <5.0 3.6 [facility] CKD: Follows with Nephrology- Dr. Thakkar Most Recent eGFR: 47 Creatinine: 1.51 Avoid nephrotoxic agents. Monitor closely. Following with Pain Management for Lumbar Stenosis. Recently reduced dosage of Marion. Feels symptoms are well controlled. Continue current [...] for Lumbar Stenosis. Recently reduced dosage of Marion. Feels symptoms are well controlled. Continue current regimen as directed by PM. documented in this encounterTen[facility] LouisNjyqfscwhp98-37-1933 Evaluation note* Diagnosis Primary hypertension (CMS/HCC)- Primary [...] neoplasm of prostate Coronary artery disease involving greenville coronary artery of greenville heart without angina pectoris (CMS/HCC) H/O prostate cancer Mixed hyperlipidemia (CMS/HCC) Mixed hyperlipidemia Chronic bilateral low back pain with bilateral sciatica Coronary artery disease involving greenville coronary artery of greenville heart without angina pectoris (CMS/HCC)- Primary PAD (peripheral artery disease) (CMS/HCC) Unspecified peripheral vascular disease Primary hypertension (CMS/HCC) Unspecified essential hypertension Stage 3a chronic kidney disease (HCC) (CMS/HCC) Lumbar stenosis with neurogenic claudication Mixed hyperlipidemia (CMS/HCC) Mixed hyperlipidemia Elevated random blood glucose level Unintentional weight change Gastroesophageal reflux disease without esophagitis Esophageal reflux Coronary artery disease involving greenville coronary artery of greenville heart without angina pectoris (CMS/HCC)- Primary Stage 3a chronic kidney disease (HCC) (CMS/HCC) Lumbar stenosis with neurogenic claudication Primary hypertension (CMS/HCC)- Primary Unspecified essential hypertension Coronary artery disease involving greenville coronary artery of greenville heart without angina pectoris (CMS/HCC) Stage 3a [...] Unspecified essential hypertension documented in this encounter [facility] [id number] History of Present illness Narrative* Nasir Ward [...] note were not included. Subjective Patient ID: Yseenia Broussard is a 78 y.o. male who [...] CHOLESTEROL mg/dL 16 CHOL/HDL RATIO <5.0 3.6 [facility] CKD: Follows with Nephrology. Avoid nephrotoxic agents. Monitor closely. Following with Pain Management for Lumbar Stenosis. Recently had surgery. Pt reports he recently had blood work done in January- nothing new in [facility]. Will request labs from Dr. Thakkar. Review [...] List Items Addressed This Visit HLD (hyperlipidemia) ([facility]) - Primary Currently taking Prvastatin 40mg Denies any myalgias. Continue current regimen. Hypertension ([facility]) Currently taking amlodipine, valsartan. Follows with Cardiology Does not check BP at home; Denies orthostatic changes, dizziness, cough, shortness of breath, swelling in extremities. Continue current regimen. Given BP log, advised pt to record BP and bring log back with them to next visit. Stage 3 chronic kidney disease (HCC) ([facility]) Follows with Nephrology. Avoid nephrotoxic agents. Monitor closely. documented in this encounterTen[facility]. LouisIqhbstcvcx15-06-9002 Hospital Discharge instructions Patient Education 04/18/2024 12:09:27 [...] Treatment for this condition includes: Antibiotic medicine. Dklv-vck-bllmxvi medicines to treat discomfort. Drinking enough water [...] Follow these instructions at home: Medicines Take xfpx-xfy-miuciqz and prescription medicines only as told by [...] provider. Document Revised: 12/23/2020 Document Reviewed: 12/28/2020 [employer] Patient Education 2023 [employer]. Follow Up Care 09/18/2023 12:00:10 With:PRESTON MAK, Barbara Warner, URL Address: [facility] [address] [place] [address]- [phone] When: Unknown Comments:1 yr w/ GIA [facility] 11-18-2024 NotePatient Education Obstetrics and [...] this condition includes: ??? Antibiotic medicine. ??? Nvea-njh-uqrzztr medicines to treat discomfort. ??? Drinking enough [...] these instructions at home: Medicines ??? Take hogo-zgf-fslzixc and prescription medicines only as told by [...] Make sure you di (more content not included)...[facility]09-19-2024 Telephone encounter Note* Telephone Encounter - Sugar Wellington MA - 02/18/2024 9:49 AM EDT Refill request from [id number] Miscellaneous Notes* Telephone Encounter - Sugar Wellington MA - 02/18/2024 9:49 AM EDT Refill request from [facility] - documented in this encounterTen[address] [facility] LouisUttwjevokt86-71-6035 Telephone encounter Note* Telephone Encounter - Sugar Wellington MA - 02/02/2024 11:29 AM EDT PT INTO OFFICE AND SAID ALL OTHER RXS WERE SENT IN FOR 90 DAY SUPPLIES BUT AMLODIPINE WASN'T SENT IN? CAN YOU SEND IN A BEFORE THURSDAY THEY ARE LEAVING OUT OF STATE FOR THREE MONTHS. -SCR [facility] LouisXzcchisore16-90-8371 Miscellaneous Notes* Telephone Encounter - Sugar Wellington MA - 02/02/2024 11:29 AM EDT PT INTO OFFICE AND SAID ALL OTHER RXS WERE SENT IN FOR 90 DAY SUPPLIES BUT AMLODIPINE WASN'T SENT IN? CAN YOU SEND IN A BEFORE THURSDAY THEY ARE LEAVING OUT OF STATE FOR THREE MONTHS. -SCR documented in this encounterTen[facility]. LouisVsluspxmry27-07-5988 History of Present illness Narrative* Nasir Ward [...] PM EDTAssociated Problem(s): Coronary artery disease involving greenville coronary artery of greenville heart with out angina pectoris (CMS/HCC) Follows Cardiology Lipid panel done in 09/2023- looked great. Continue Pravastatin as ordered. * Nasir Ward NP - 01/20/2024 6:38 PM EDTAssociated Problem(s): Hypertension (CMS/HCC) Taking Amlodipine and Valsartan Denies orthostatic changes Continue amlodipine and valsartan * Nasir Ward NP - 01/20/2024 6:00 PM [...] Problem List Items Addressed This Visit Hypertension (CMS/HCC) - Primary Taking Amlodipine and Valsartan Denies orthostatic changes Continue amlodipine and valsartan Stage 3 chronic kidney disease (HCC) (CMS/HCC) Follows Nephrology Dr. Thakkar CKD stage 3. Continue to monitor and avoid nephrotoxic agents. Coronary artery disease involving greenville coronary artery of greenville heart without angina pectoris (CMS/HCC) Follows Cardiology Lipid panel [...] very well. Denies complaints. documented in this encounterTen[facility] St. LouisIrbzeolwkk97-30-3929 Instructions* Patient Instructions* Nasir Ward NP - 01/20/2024 6:00 PM EDT Referral sent to Dr. Bryant- Urology; They will call you! Call if you need anything! documented in this encounterTen[facility] St. LouisPivbclxyfd88-29-6880 NoteSUBJECTIVE: Chief complaint: Postoperative visit status post [...] he would like to stop taking his Marion and his gabapentin. He was on Marion 5/325 for many years per pain management. Dose was increased to Marion 7.5 325 recently due to his increased back symptoms. Just taking gabapentin once per day. He does state that when he does not take his Marion often enough, he seems to have a [...] Diverticulosis Hypertension 1996 Kidney disease Myocardial infarction ([facility]) 1996 PONV (postoperative nausea and [...] , Rfl: ergocalciferol (Vitamin D-2) 1.25 MG (85208 Units) capsule, Take 1,250 mcg by mouth 1 (one) time per week., Disp: , Rfl: gabapentin (Neurontin) 100 mg capsule, Take 100 mg by mouth at bedtime., Disp: , Rfl: HYDROcodone-acetaminophen (Marion) 7.5-325 mg tablet, 1 tablet., Disp: , [...] Reactions Ezetimibe GI intolerance Other reaction(s): Nausea/vomiting Mlrqtpb-Aob-Fav Reductase Inhibitors Other Muscle/Joint Pain Other Reaction(s): lipitor Exam: Vitals reviewed: Temp: [36.6 ???C (97.8 ???F)] 36.6 ???C (97.8 ???F) Heart Rate: [76] 76 BP: (146)/(73) 146/73 No intake/output data recorded. No intake/outpu (more content not included)...[facility]07-23-2024 Evaluation note* Diagnosis Prostate cancer (HCC)- Primary Malignant neoplasm of prostate Stage 3 chronic kidney disease, unspecified whether stage 3a or 3b CKD (HCC) documented in this encounter [facility]07-16-2024 Nurse Note* Diane Parada LPN - 12/15/2023 2:36 PM EDT AUA= 13 [facility]07-16-2024 Nurse Note* Diane Parada LPN - 12/15/2023 2:36 PM EDT AUA= 13 documented in [facility] encounter[facility] History of Present illness Narrative* Hyun Nazario MD - 12/15/2023 2:30 PM EDT Radiation Oncology - Follow Up Note PATIENT NAME: Yesenia Broussard PATIENT DIAGNOSIS: Prostate adenocarcinoma, initial PSA 9.95, biopsy Oak Ridge score 3 + 4 = 7 (grade [...] ASSESSMENT/PLAN: Prostate adenocarcinoma, initial PSA 9.95, biopsy Oak Ridge score 3 + 4 = 7 (grade [...] by: Hyun Nazario MD cc: Shaikh Dotty [facility] [place] [address] documented in this encounterUc Medical Center07-03-2024 NoteIn person visit Chief complaint: follow up from multi-level lumbar decompressive operations AKUTAN 78 y/o male - had multi-level surgeries [...] denture Diverticulitis Diverticulitis of colon Diverticulosis Hypertension 1997 Kidney disease Myocardial infarction (CMS/HCC) 1996 PONV [...] tablet 0 ergocalciferol (Vitamin D-2) 1.25 MG (67262 Units) capsule Take 1,250 mcg by mouth 1 (one) time per week. gabapentin (Neurontin) 100 mg capsule Take 100 mg by mouth at bedtime. HYDROcodone-acetaminophen (Marion) 7.5-325 mg tablet 1 tablet. nitroglycerin (Nitrostat) [...] Reactions Ezetimibe GI intolerance Other reaction(s): Nausea/vomiting Tjnvixw-Vkj-Agx Reductase Inhibitors Other Muscle/Joint Pain Other Reaction(s): [...] 4-6 with either me or Joellen [place] MDOhioHealth [facility]06-19-2024 Note Occupational Therapy Occupational Therapy Evaluation Patient Name: Yeesnia Broussard : 1945 Today's Date: 11/18/2023 Discharge [...] senile cataract Anxiety Atherosclerotic heart disease of [place] coronary artery without angina pectoris BPH with urinary obstruction Bradycardia BMI 28.0-28.9,adult Chest pressure Chronic low back pain Chronic pain disorder Chronic prostatitis Elevated random blood glucose level Gastroesophageal reflux disease without esophagitis Feeling of incomplete bladder emptying Erectile dysfunction Gross hematuria H/O prostate cancer Carotid artery disease (CMS/HCC) CVA (cerebral vascular accident) ([facility]/HCC) Heart disease Hypertension PAD (peripheral artery disease) ([facility]/HCC) Peripheral vascular disease ([facility]/HCC) History of NE (myocardial infarction) HLD (hyperlipidemia) Intermittent claudication ([facility]/HCC) Kidney disease 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) Prostate cancer ([facility]/HCC) Nocturia Prostate nodule Recurrent UTI Stage 3 chronic kidney disease ([facility]/HCC) Tobacco abuse Smoker Umbilical hernia Unintentional weight change UTI symptoms S/P lumbar laminectomy Past Medical History: Diagnosis Date Adverse effect of anesthesia 2013 Trouble controlling PB - drops very low Coronary artery disease 2012 Dental disease partial denture Diverticulitis Diverticulitis of colon Diverticulosis Hypertension 1996 Kidney disease Myocardial infarction ([facility]/HCC) 1996 PONV (postoperative nausea and vomiting) Prostate cancer ([facility]/HCC) PVD (peripheral vascular disease) ([facility]) PVD (peripheral vascular disease) ([facility]) left leg stent Stroke ([facility]) 2012 Past Surgical History: Procedure [...] Functional Limits General Assessment General Assessment Hearing: [facility] Home Living Home Living Type of Home: [...] Level of Function Prior Function Level of [place]: Independent with ADLs and functional transfers, Independent [...] No upper extremity supporte (more content not included)...[facility]06-19-2024 NotePhysical Therapy Evaluation Patient Name: Yesenia [...] senile cataract Anxiety Atherosclerotic heart disease of [place] coronary artery without angina pectoris BPH with [...] (CMS/HCC) Peripheral vascular disease (CMS/HCC) History of NE (myocardial infarction) HLD (hyperlipidemia) Intermittent claudication (CMS/HCC) [...] Prostate cancer (CMS/HCC) PVD (peripheral vascular disease) ([facility]/HCC) PVD (peripheral vascular disease) (CMS/HCC) left leg stent Stroke ([facility]/HCC) 2012 Past Surgical History: Procedure Laterality Date [...] pt advised to a (more content not included)...[facility]06-18-2024 Note Patient: Yesenia Broussard Procedure Summary Date: 11/17/23 Room / Location: [facility] OPERATING ROOM 02 / [facility] Operating Room Anesthesia Start: 921 Anesthesia [...] PACU per anesthesia protocol. No notable events documented.[facility]06-18-2024 Note Peripheral IV Date/Time: 11/17/2023 10:25 AM Inserted by: French Coffman MD Placement Needle size: 18 G Laterality: left Location: hand Local anesthetic: GA. Site prep: alcohol Technique: anatomical landmarks [facility]s: [facility]24 NoteAirway Date/Time: 11/17/2023 9:33 AM Urgency: elective Airway not difficult General Information and Staff Patient location during procedure: OR Resident/BUSINESS COMMUNICATIONS INSTRUCTOR/CAA: French Coffman MD Performed: resident/BUSINESS COMMUNICATIONS INSTRUCTOR/CAA Indications and Patient Condition Indications for airway [...] (cm): 22 Number of attempts at approach: 1[facility]06-18-2024 NotePatient: Yesenia Broussard Procedure Information Date/Time: 11/17/23 0935 Procedures: L3-L4 Synovial Cyst Resection, Left L4-L5 Lateral Recess Decompression, and (Bilateral) Right L5 Foraminal Decompression (Bilateral) - C-arm, Prone on Robert Table Location: [facility] OPERATING ROOM 02 / [facility] Operating [facility] Surgeons: Vasile [place] MD Relevant Problems Anesthesia (within normal limits) Cardio NE 10 years ago, one stent (+) Atherosclerotic heart disease of [place] coronary artery without angina pectoris (+) Carotid artery disease (CMS/HCC) (+) Hypertension (+) PAD (peripheral artery disease) ([facility]) Endo FBS 80 mg/dl GI (+) Gastroesophageal reflux disease without esophagitis /Renal (+) Kidney disease (+) 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 (+) CVA (cerebral vascular accident) ([facility]) Pulmonary Long standing tobacco use, [...] patient. Plan discussed with resident. Additional Equipment RequestsOhioHealth Grove City Methodist Hospital06-06-2024 Note SUBJECTIVE: Chief complaint: Preoperative visit [...] He saw pain management and is taking Marion, which helps some. Did physical therapy in [...] , Rfl: ergocalciferol (Vitamin D-2) 1.25 MG (61412 Units) capsule, Take 1,250 mcg by mouth 1 (one) time per week., Disp: , Rfl: gabapentin (Neurontin) 100 mg capsule, Take 100 mg by mouth at bedtime., Disp: , Rfl: HYDROcodone-acetaminophen (Marion) 7.5-325 mg tablet, TAKE 1 TABLET BY [...] Reactions Ezetimibe GI intolerance Other reaction(s): Nausea/vomiting Txtomab-Lzh-Zsh Reductase Inhibitors Other Muscle/Joint Pain Other Reaction(s): [...] 5/5 bilaterally. Hip flexor (more content not included)...[facility] 09-18-2023 Hospital Discharge instructions Patient Education [...] to keep your urine pale yellow. ?Take xvim-xqg-zjaesgr or prescription medicines. ?Eat foods that are high in fiber, such as beans, whole grains, and fresh fruits and vegetables. ?Limit foods that are high in fat and processed sugars, such as fried or sweet foods. General instructions Take vmpz-tmp-tautlqe and prescription medicines only as told by [...] the muscles that help control urination. Take ygsl-cqu-tedsfso and prescription medicines only as told by your health care provider. Contact a health care provider if your symptoms do not improve or get worse. This information is not intended to replace advice given to you by your health care provider. Make sure you discuss any questions you have with your health care provider. Document Revised: 12/21/2020 Document Reviewed: 12/21/2020 [employer] Patient Education 2022 unbound technologies. Follow Up Care 07/07/2023 09:49:12 With:PRESTON MAK, Barbara Warner, URL Address: [address] [place] [address]- When: Unknown [facility] 04-03-2024 NoteIn person visit Chief complaint: had stent put in his left leg - was having some pain in the right leg AKUTAN: 78 y/o male He had some pain in the right leg His primary complaint is his back and hips He did have to have a stent in th left leg - for a vascular blockage The stent was done at [facility] His left leg was about 6 [...] about 2021 That was treated out by [facility] in [place] - Dr. Hernandez ROS: As above Past Medical History: Diagnosis Date Kidney disease Prostate cancer ([facility]) PVD (peripheral vascular disease) ([facility]) No past surgical history on file. No [...] - from about 2 packs per day. MD Vasile Lao MDOhioHealth Grove City [facility] Hospital 08-18-2023 History of Present illness Narrative* [...] his history are noted for prior inferior NE with revascularization of the RCA in [place] followed by bilateral carotid endarterectomies. More recently [...] normal. Judgment: Judgment normal. Allergies Ezetimibe and Vwhdyne-rrp-ond reductase inhibitors Current Medications Current Outpatient Medications: [...] , Rfl: ergocalciferol (Vitamin D-2) 1.25 MG (02965 UT) capsule, Take 1 capsule (1,250 mcg) by mouth 1 (one) time per week., Disp: , Rfl: gabapentin (Neurontin) 100 mg capsule, Take 1 capsule (100 mg) by mouth 2 times a day., Disp: , Rfl: HYDROcodone-acetaminophen (Marion) 7.5-325 mg tablet, Take 1 tablet by [...] Follow Up In Cardiology 4. History of NE (myocardial infarction) 5. BMI 28.0-28.9,adult 6. ASHD [...] exam, discussion and plan. documented in this encounterSelect [facility] Work Phone: 1(310) 104-222703-19-2024 Instructions* Patient Instructions* Shahla Foster MA - [...] time of your visit. documented in this encounterSelect Medical Specialty [facility] Work Phone: 1(129) 285-760301-14-2024 NoteHNO ID: [id number] Author: KODI REYNOLDS MD Service: ? Author [...] pleasant 77-year-old male who recently moved from [place] to [place]. He reports longstanding history of back and [...] 0 0 0 PHQ- (more content not included)...[facility] [id number] History of Present illness Narrative* Kodi Reynolds [...] pleasant 77-year-old male who recently moved from [place] to [place]. 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 No Bert Harper documented in this encounterUc Medical Center01-12-2024 NoteHNO ID: [id number] Author: ?, ?, ? Service: ? Author [...] completing routine daily living activities? No Bert HarperOhiohealth Grady Memorial HospitalWyqrvdpb26-89-1378 History of Present illness Narrative * Chaim Grayson, DO - 06/04/2023 9:50 AM EST Cardiology Consultation- New Consult Reason for referral: 77-year-old gentleman seen in cardiology consultation at the request of primary care physician Dr. Storm, for further evaluation regarding chest discomfort. Patient moved from [place] to the local area approximately 2 years ago. He has a history of previous inferior NE in the mid with revascularization of the RCA in [place] followed by stroke with subsequent bilateral carotid [...] ischemia given his risk factors and previous NE and revascularization on follow-up thereafterwards HPI: Yesenia Renteria is a 77 y.o. male Past Medical History: He has a past medical history of Abnormal ECG (05-20-2023), Cancer ([facility]) (07/07/2021), Chronic kidney disease, Coronary artery disease, Hypertension, Myocardial infarction ([facility]) (10/30/1996), and Stroke ([facility]) (01/31/12). Surgical History: He has [...] Alcohol use: Not Currently Allergies: Ezetimibe and Dmirmeg-sdg-cgd reductase inhibitors Current Medications: Current Outpatient Medications: [...] , Rfl: ergocalciferol (Vitamin D-2) 1.25 MG (76141 UT) capsule, Take 1 capsule (1,250 mcg) by mouth 1 (one) time per week., Disp: , Rfl: HYDROcodone-acetaminophen (Marion) 7.5-325 mg tablet, Take 1 tablet by [...] By signing my name below, Mary Ellen Yanez LPN , Scribe attest that this documentation has been prepared under the direction and in the presence of Kaya Grayson DO. documented in this encounterSelect Medical [facility] Work Phone: 1(281) 555-717001-04-2024 Instructions* Patient Instructions* Yunier Mathur MA - [...] time of your visit. documented in this encounterSelect Medical [facility] Work Phone: 1(620) 236-750101-04-2024 Evaluation note* Diagnosis Hypertension, unspecified type Stage 3 chronic kidney disease, unspecified whether stage 3a or 3b CKD (CMS/HCC) Mixed hyperlipidemia Bilateral carotid artery disease, unspecified type (CMS/HCC) Smoker Tobacco use disorder Chest pressure Other chest pain documented in this encounter [facility] Work Phone: 1(942) 124-658012-20-2023 Miscellaneous Notes* Telephone Encounter - Claire Koroma - 05/20/2023 9:14 AM EST Margaret- records were not sent, so we shouldn't have to call and cancel. * Telephone Encounter - Diane Parada LPN - 05/20/2023 9:08 AM EST Mrs. Broussard called stating they contacted one of Dexter's previous physicians at [facility] spine clinic and he will arrange for Dexter to see [facility] neurosurgeon. Please cancel the referral to [facility] neurosurgeon perpatient request. Diane Parada RN * Telephone Encounter - Ky Haas, Margaret - 05/19/2023 2:11 PM EST Neelam when order is signed can you please send records to Dr Marvin at [facility] thank you! Facesheet in your box documented in this encounterUc Medical Center12-19-2023 Miscellaneous Notes* Telephone Encounter - Julianna Yuan RN - 05/19/2023 10:45 AM EST Patient is requesting referral to Surgeon. He looks like had MRI of Lumbar spine on 02/20/2023 but no images in system. We do have report. documented in this encounterUc Medical Center11-21-2023 Hospital Discharge instructions Patient Education 04/21/2023 09:12:49 [...] Follow these instructions at home: Medicines Take dgsf-sao-mvhhqrg and prescription medicines only as told by [...] provider. Document Revised: 08/14/2021 Document Reviewed: 08/14/2021 [employer] Patient Education 2022 unbound technologies. Follow Up Care 02/11/2023 15:24:55 With:BRITNI ENCINAS, CLAIRE Boswell, URL Address: [address] [facility] [place] [phone] When: Unknown [facility] Evaluation note* Encounter Date Diagnosis Assessment [...] in 6 months with repeat surveillance ABIs. [employer] Other 10-23-2023 [facility]* Encounter Date Diagnosis Assessment [...] will schedule this in the near future. [employer] Other 09-20-2023 Evaluation note* Encounter Date Diagnosis [...] once again all his questions were addressed. [employer] Other 09-13-2023 Hospital Discharge instructions Patient Education [...] urethra. Follow these instructions at home: Take ieoo-bmw-ynxahkg and prescription medicines only as told by [...] provider. Document Revised: 12/04/2021 Document Reviewed: 12/04/2021 [employer] Patient Education 2022 unbound technologies. Follow Up Care 01/05/2023 13:14:43 With:CLAIRE JAMES PA-C, URL Address: [address] [facility] [place] [address] When:Within 8 Week(s) [facility] 08-22-2023 Miscellaneous Notes* Telephone Encounter [...] as appropriate. JENNIE Lange documented in this encounterUc Medical Center08-21-2023 History of Present illness Narrative* Jose Nichols DO - 01/19/2023 12:49 PM EDT Images from the original note were not included. [facility] [place] [facility] [...] lumbar decompression and partial discectomy L4-5 at [facility] [place] . Now follows with Pain Management in [place], [place]. Received opinion from his son's spine surgeon Dr. Farias in [place]. After review of imaging he was offered L4-S1 ALIF with posterior L4-S1 robotic assisted fusion. Since they do not live in [place] he was recommended to seek consultation at [facility]. Pain is located midline and bilateral low [...] spine interventions: -Lumbar procedures with Pain Management [facility] Dr. Oliva. -RFA ordered following MBB #2 01/07/22 BL L2, L3, L4, L5 MBB - 95% relief same day 12/17/21 BL L2, L3, L4, L5 MBB - 90% relief x 1 hour, then 50% for a few hours -Lumbar injections in [place] prior to surgery. Had at least a few injections, including RFA, LESI, SIJ, he remembers one of the injections helping. Prior spine surgery: L4-5 Previously treated by: -Pain Management at [facility] in [place], [place], Dr. Barbara Farias on 07/07/22 virtual [...] See below Social: Home life: Moved to [place] 2020. Litigation: No Workers' Compensation: No YELLOW [...] independently reviewed 11/26/21 MRI lumbar spine wo [facility]: The bones of the lumbar spine [...] nerve root. 11/26/21 MRI prostate w/wo contrast, [facility]: Bones: No suspicious bony lesion. Normal appearing sacrum/coccyx per my review. ASSESSMENT/PLAN DIAGNOSIS: M48.062 Spinal stenosis, lumbar region with neurogenic claudication (primary encounter diagnosis) M48.061 Foraminal stenosis of lumbar region I73.9 Peripheral artery disease (HCC) C61 Prostate cancer (HCC) ASSESSMENT: Yesenia rBoussard is a 77 year old male with [...] 2023 TIME: 12:50 PM documented in this encounterUc Medical Center08-18-2023 Miscellaneous Notes* Telephone Encounter - Julianna Yuan RN - 01/16/2023 8:13 AM EDT Left message on [employer] for patient to call office back or to read [employer] message. * Telephone Encounter - Julianna Yuan [...] calling: self Call patient at: at home [phone] (home) [phone] (cell) Was an appointment scheduled: No Closing statement: Results or non-symptom based questions: Thank you for calling [facility], your call will be returned within the next business day. Paul Cat documented in this encounterUc Medical Center08-08-2023 Miscellaneous Notes* Telephone Encounter - Livier Barrera RN - 01/06/2023 8:13 AM EDT Please sign pended new order for Lumbar Spine MRI as it needs to state that it needs to be done with anesthesia. Thank you Livier Barrera RN documented in this encounterUc Medical Center08-07-2023 Miscellaneous Notes* Telephone Encounter - Evelyn Chamberlain RN - 01/05/2023 4:52 PM EDT Spoke to patient's . Explained differences between anxiolysis and full anesthesia. Per patient's , patient needs full anesthesia-will not tolerate procedure with anxiolysis alone. Communicated to office that new order needs to be placed for MRI with anesthesia, and will need to be scheduled at [facility]. documented in this encounterUc Medical Center07-05-2023 Hospital Discharge instructions Patient Education 12/03/2022 15:36:37 [...] to keep your urine pale yellow. ?Take nwfq-ptz-lyqxipf or prescription medicines. ?Eat foods that are high in fiber, such as beans, whole grains, and fresh fruits and vegetables. ?Limit foods that are high in fat and processed sugars, such as fried or sweet foods. General instructions Take reca-eyv-sxhmyvl and prescription medicines only as told by [...] the muscles that help control urination. Take tvkw-uqk-tiignsi and prescription medicines only as told by your health care provider. Contact a health care provider if your symptoms do not improve or get worse. This information is not intended to replace advice given to you by your health care provider. Make sure you discuss any questions you have with your health care provider. Document Revised: 12/21/2020 Document Reviewed: 12/21/2020 [employer] Patient Education 2022 unbound technologies. Follow Up Care 10/28/2022 10:11:31 With:BRITNI ENCINAS, CLAIRE Boswell, URL Address: [address] [place] [address] When:Within 5 Week(s) [facility] 06-23-2023 Miscellaneous Notes* Telephone Encounter [...] completed. This can only be completed at [facility] Main & orders must be revised to reflect such. Thanks, Kadi Cotton * Telephone Encounter - Kadi Cotton - 11/18/2022 2:17 PM EDT Per [facility] Neurosurgery, a more recent MRI is required before scheduling the patient to be seen. They are requesting new MRI orders to be placed before completing consult. Kadi Cotton documented in this encounterUc Medical Center06-21-2023 History of Present illness Narrative* Elizabeth Freire [...] cancer. Elizabeth Freire APRN.GILBERTO documented in this encounterUc Medical Center06-21-2023 Evaluation note* Diagnosis Prostate cancer (HCC) Malignant neoplasm of prostate Stage 3 chronic kidney disease, unspecified whether stage 3a or 3b CKD (HCC) documented in this encounter [facility] Nurse Note* Nadja Guardado - 11/18/2022 2:34 PM EDT Clinical questionnaires incomplete due to Patient was roomed by provider documented in this encounterUc Medical Center06-20-2023 Nurse Note* Livier Barrera RN - 11/18/2022 1:32 PM EDT AUA 21 Livier Barrera RN documented in this encounterUc Medical Center06-20-2023 History of Present illness Narrative* Hyun Nazario [...] ASSESSMENT/PLAN: Prostate adenocarcinoma, initial PSA 9.95, biopsy [place] score 3 + 4 = 7 (grade [...] Hyun Nazario MD cc: Shaikh Dot[address] [place] [address] documented in this encounterUc Medical Center01-06-2023 Miscellaneous Notes* Telephone Encounter - STEPHANIE Lange [...] call back. JENNIE Lange documented in this encounterUc Medical Center01-05-2023 Nurse Note* Kelly Hector - 06/05/2022 12:40 PM EST Back office UA test performed. Results entered in [employer] and doctor notified. Kelly Hector MA documented in this encounterUc Medical Center12-15-2022 Miscellaneous Notes* Telephone Encounter - Diane Parada LPN - 05/15/2022 1:51 PM EST Nena, pt's , notified to have Dexter complete the Cipro prescription and have urine rechecked in 2-3 weeks. Call transferred to [facility] to schedule lab appt. Dr. Nazario, please sign pended lab orders. Diane Parada LPN documented in this encounterUc Medical Center12-15-2022 NoteCONSULTATION CONSULTATION DATE: 05/15/2022 HISTORY OF PRESENT [...] he has a son who lives in [place] with the same symptoms and gained relief after seeing a specialist and having surgery. Medications include Lyrica 75 mg t.i.d., Marion 5/325 t.i.d. and baclofen 10 mg q.h.s. [...] are going to spend three months in [place] with his son in early July and he wishes to see the specialist out there. I told him we would continue to medically manage him, which he does agree to. Patient will call the office for an appointment upon return from [place].[facility] [id number] History of Present illness Narrative* STEPHANIE Lange - 04/30/2022 3:01 PM EST SOCIAL WORK FOLLOW UP NOTE: [facility] Date of service:04/30/22 TOPICS ADDRESSED: community resources PLAN: Continue follow up as needed Assigned SW listed in Care Team tab: Yes SW completed and faxed a mileage reimbursement log to [facility] for the month of April 2022. JENNIE Lange documented in this encounterUc Medical [facility] History of Present illness Narrative* Hyun Nazario MD - 04/23/2022 12:00 AM EST [facility] Radiation Oncology Department RADIATION ONCOLOGY - COMPLETION NOTE PATIENT: YESENIA BROUSSARD: 1945 DATES OF TREATMENT: 03/18/2022- 04/23/2022 DIAGNOSIS: Prostate adenocarcinoma, initial PSA 9.95, biopsy [place] score 3 + 4 = 7 (grade [...] / DELIA :35 PM documented [facility] History of Present illness Narrative* Hyun Nazario [...] treatment. Hyun Nazario MD documented in this encounterU[facility]11-14-2022 History of Present illness Narrative* Hyun Nazario MD - 04/14/2022 3:05 PM EST Radiation Oncology - On Treatment Review (OTR) Note PATIENT NAME: Yesenia Broussard PATIENT DIAGNOSIS: Prostate adenocarcinoma, initial PSA 9.95, biopsy [place] score 3 + 4 = 7 (grade [...] outlined. Hyun Nazario MD documented in this encounterUc [facility] Center11-07-2022 History of Present illness Narrative* Hyun Nazario [...] outlined. Hyun Nazario MD documented in this encounterU[facility] Center10-31-2022 History of Present illness Narrative* Hyun Nazario MD - 03/31/2022 3:29 PM EDT Radiation Oncology - On Treatment Review (OTR) Note PATIENT NAME: Yesenia Broussard PATIENT DIAGNOSIS: Prostate adenocarcinoma, initial PSA 9.95, biopsy [place] score 3 + 4 = 7 (grade [...] outlined. Hyun Nazario MD documented in this encounterUc [facility] Center10-31-2022 History of Present illness Narrative* STEPHANIE Lange [...] March 2022. JENNIE Lange documented in this encounterUc [facility] Center10-27-2022 Nurse Note* Livier Barrera RN - 03/27/2022 [...] assist. Livier Barrera RN documented in this encounterUc [facility] Center10-24-2022 History of Present illness Narrative* Hyun Nazario [...] outlined. Hyun Nazario MD documented in this encounterUc [facility] Center10-18-2022 History of Present illness Narrative* Hyun Nazario MD - 03/18/2022 3:58 PM EDT Radiation Oncology - On Treatment Review (OTR) Note PATIENT NAME: Yesenia Broussard PATIENT DIAGNOSIS: Prostate adenocarcinoma, initial PSA 9.95, biopsy [place] score 3 + 4 = 7 (grade [...] prescribed. Hyun Nazario MD documented in this encounterUc Medical Center10-18-2022 Miscellaneous Notes* Telephone Encounter - Diane Parada LPN - 03/18/2022 8:31 AM EDT CBC order the second week during radiation is pending your approval. Diane Parada LPN documented in this encounterUc Medical Center10-13-2022 NoteCONSULTATION PROCEDURE DATE: 03/13/2022 PREOPERATIVE DIAGNOSIS: Bilateral [...] the procedure well with no overt complications.[facility] [id number] NoteCONSULTATION CONSULTATION DATE: 03/13/2022 HISTORY OF PRESENT [...] current medications include Lyrica 75 mg t.i.d., Marion 5/325 t.i. d., baclofen 10 mg q.h.s. [...] and will return in six weeks' time.[facility] [id number] History of Present illness Narrative* STEPHANIE Lange - 03/12/2022 4:25 PM EDT SOCIAL WORK FOLLOW UP NOTE: [facility]ER CENTER Date of service:03/12 22 Yesenia Warner Bobo is being seen for a follow up [...] as appropriate. JENNIE Lange documented in this encounterUc Medical Center10-12-2022 History of Present illness Narrative* G Jose Nazario MD - 03/12/2022 12:00 AM EDT YESENIA BROUSSARD [id number] 03/12/2022 [facility] Department of Radiation Oncology Treatment Planning [...] Nazario M.D. 21:57 PM documented in this encounterUc Medical Center10-04-2022 Miscellaneous Notes* Telephone Encounter - STEPHANIE Lange [...] as appropriate. JENNIE Lange documented in this encounterUc Medical Center10-03-2022 History of Present illness Narrative* Hyun Nazario MD - 03/03/2022 10:42 AM EDT Unable to complete simulation due to anxiety related to claustrophobia. Prescription for Valium given. We will reschedule. documented in this encounterUc Medical Center09-27-2022 Miscellaneous Notes* Telephone Encounter - Margaret Mcpherson Sec - 02/25/2022 2:09 PM EDT [...] Thanks Diane Parada LPN documented in this encounterUc Medical Center09-12-2022 Miscellaneous Notes* Telephone Encounter - Livier Cook [...] Maddy Waite MA documented in this encounterCleveland [id number] NoteCONSULTATION CONSULTATION DATE: 01/23/2022 HISTORY OF PRESENT [...] well enough that he went to the [employer] to watch a tractor pull. Sitting on [...] ice. Medications include baclofen 10 mg q.h.s., Marion 5/325 t.i.d., Lyrica 75 mg b.i.d. Patient's [...] followed up in the clinic post procedure.[facility] [id number] Miscellaneous Notes* Telephone Encounter - Diane Parada [...] advise. Diane Parada LPN documented in this encounterUc Medical Center07-28-2022 NoteCONSULTATION CONSULTATION DATE: 12/26/2021 HISTORY OF PRESENT [...] His medications include baclofen 10 mg q.h.s., Marion 5/325 t.i.d. and Lyrica 50 mg b.i.d. [...] and he is in agreement to this.[facility] [id number] Nurse Note* Diane Parada LPN - 12/10/2021 9:20 AM EDT AUA= 10 documented in this encounterUc Medical Center07-12-2022 History of Present illness Narrative* Hyun Nazario MD - 12/10/2021 9:00 AM EDT Radiation Oncology - Prostate Cancer New Patient/Consult Note PATIENT NAME: Yesenia Broussard PATIENT REQUESTING PROVIDER: Dr. Johnston DIAGNOSIS: 76 year old male with prostate adenocarcinoma, initial PSA 9.95, biopsy [place] score 3 + 4 = 7 (grade [...] cc: Shaikh Dotty [address] [place] [address] Barbara Johnston [address] [facility] [address] documented in this encounterUc Medical Center06-06-2022 Evaluation + Plan note Diagnostic Tests Pending * PSA Total [facility]/04/21 [facility] Hospital Discharge instructions Patient Education 11/04/2021 [...] 05/18/2006 Document Revised: 02/04/2019 Document Reviewed: 04/17/2017 [employer] Patient Education 2020 [employer]. 11/04/2021 10:39:39 Benign Prostatic Hyperplasia Benign Prostatic [...] urethra. Follow these instructions at home: Take kmnh-isv-kxnwltq and prescription medicines only as told by [...] 05/18/2006 Document Revised: 04/12/2019 Document Reviewed: 06/22/2017 [employer] Patient Education 2020 [employer]. 11/04/2021 10:39:34 Prostate Cancer Prostate Cancer The [...] who: Are older than age 65. Are -[place]. Are obese. Have a family history of [...] cells. Follow these instructions at home: Take opfo-ayn-eefmkjt and prescription medicines only as told by [...] 05/18/2006 Document Revised: 04/30/2018 Document Reviewed: 01/26/2017 [employer] Patient Education [employer] - [employer]. [employer].. Follow Up Care 07/01/2021 09:43:21 With:PRESTON MAK, Barbara Warner, URL Address: [facility] [address], [place] [address]- [phone] When: Unknown Comments:Will schedule MRI of prostate w/wo and Perineal prostate biopsy. [facility] 05-26-2022 Evaluation note* Encounter Date [...] statins. Monitor LFTs and lipid profile periodically. [employer] Other Evaluation + Plan note Future Appointments Appointment Date:01/06/2023 09:15:00 AM Scheduled Provider:CLAIRE JAMES PA-C Location:[facility] Appointment Type:URO Office Visit [facility] evaluation + Plan note Future Appointments Appointment Date:04/21/2023 08:30:00 AM Scheduled Provider:CLAIRE JAMES PA-C Location:[facility] Appointment Type:URO Office Visit [facility] evaluation + Plan note Future Appointments Appointment Date:07/07/2023 09:00:00 AM Scheduled Provider:CLAIRE JAMES PA-C Location:[facility] Appointment Type:URO Office Visit Diagnostic Tests Pending * Electrolyte Panel 04/21/23 [facility] evaluation + Plan note Future Appointments Appointment Date:07/07/2023 09:00:00 AM Scheduled Provider:CLAIRE JAMES PA-C Location:[facility] Appointment Type:URO Office Visit Diagnostic Tests Pending * [facility]rine [facility] App[facility]ments Appointment Date:04/01/2024 10:45:00 AM Scheduled Provider:Barbara JOHNSTON MD Location:[facility] Appointment Type:URO Office Visit Diagnostic Tests Pending * PSA Total 12/31/23 [facility] evaluation + Plan note Future Appointments Appointment Date:04/18/2024 12:45:00 PM Scheduled Provider:Barbara JOHNSTON MD Location:[facility] Appointment Type:URO Office Visit Diagnostic Tests Pending * Urine Culture 04/07/24 [facility] Evaluation + Plan note Future Appointments Appointment Date:04/18/2024 12:45:00 PM Scheduled Provider:Barbara JOHNSTON MD Location:[facility] Appointment Type:URO Office Visit [facility] evaluation + Plan note Future Appointments Appointment Date:04/21/2025 10:15:00 AM Scheduled Provider:Barbara JOHNSTON MD Location:[facility] Appointment Type:URO Office Visit Diagnostic Tests Pending * PSA Total 04/18/24 [facility] evaluation + Plan note Future Appointments Appointment Date:04/21/2025 10:15:00 AM Scheduled Provider:Barbara JOHNSTON MD Location:[facility] Appointment Type:URO Office Visit Diagnostic Tests Pending * Urine Culture 08/08/24 [facility] evaluation + Plan note Future Appointments Appointment Date:04/21/2025 10:15:00 AM Scheduled Provider:Barbara JOHNSTON MD Location:[facility] Appointment Type:URO Office Visit Diagnostic Tests Pending * Urine Culture 08/22/24 [facility] evaluation + Plan note Future Appointments Appointment Date:04/21/2025 10:15:00 AM Scheduled Provider:Barbara JOHNSTON MD Location:[facility] Appointment Type:URO Office Visit Diagnostic Tests Pending * Urine Cytology ([facility]) 08/29/24 [facility] evaluation note* Diagnosis Malignant neoplasm of prostate [...] this encounter [facility] noteNo assessment information availableWadsworth-[facility] Work Phone: Evaluation note* Diagnosis Hematuria, unspecified type- Primary Malignant neoplasm of prostate (HCC) Malignant neoplasm of prostate documented in this encounter [facility] note* Diagnosis Urinary tract infection without hematuria, site unspecified- Primary documented in this encounter [facility] note* Diagnosis History of prostate cancer- Primary Personal history of malignant neoplasm of prostate Spinal arthritis Spondylosis of unspecified site without mention of myelopathy Spinal stenosis of lumbar region, unspecified whether neurogenic claudication present documented in this encounter [facility] note* Diagnosis Spinal stenosis of lumbar region without neurogenic claudication- Primary Spinal stenosis, lumbar region, without neurogenic claudication documented in this encounter [facility] note* Diagnosis Spinal stenosis of lumbar region, unspecified whether neurogenic claudication present- Primary documented in this encounter [facility] note* Diagnosis Spinal stenosis, lumbar region with neurogenic claudication- Primary Foraminal stenosis of lumbar region Spinal stenosis, lumbar region, without neurogenic claudication Peripheral artery disease (HCC) Peripheral vascular disease, unspecified Prostate cancer (HCC) Malignant neoplasm of prostate documented in this encounter [facility] noteNo [employer] [employer] Other Evaluation note* Diagnosis Spinal stenosis, lumbar region with neurogenic claudication- Primary Foraminal stenosis of lumbar region Spinal stenosis, lumbar region, without neurogenic claudication documented in this encounter [facility] note* Diagnosis Spondylolisthesis of lumbar region- Primary Acquired spondylolisthesis documented in this encounter [facility] note* Diagnosis Hypertension, unspecified type Mixed hyperlipidemia Bilateral carotid artery disease, unspecified type (CMS/HCC) History of NE (myocardial infarction) Old myocardial infarction BMI 28.0-28.9,adult ASHD (arteriosclerotic heart disease) Coronary atherosclerosis of unspecified type of vessel, green[place] or graft PVD (peripheral vascular disease) ([facility]/HCC) Unspecified peripheral vascular disease Smoker Tobacco use disorder Chest pain, unspecified type documented in this encounter [facility] Work Phone: Evaluation note* Diagnosis Onset Date Resolution Status Current every day smoker acu te PAD (peripheral artery disease) [facility] Work Phone: Evaluation note* Diagnosis Onset Date Resolution Status Anemia of renal disease acut e CKD (chronic kidney disease) stage 3, GFR 30-59 ml/min acute [id number] acute Secondary hyperparathyroidism acute UTI (urinary tract infection) acute [facility] Work Phone: Evaluation note* Diagnosis Primary hypertension [...] neoplasm of prostate Coronary artery disease involving greenville coronary artery of greenville heart without angina pectoris (CMS/HCC) H/O prostate cancer Mixed hyperlipidemia (CMS/HCC) Mixed hyperlipidemia Chronic bilateral low back pain with bilateral sciatica Coronary artery disease involving greenville coronary artery of greenville heart without angina pectoris (CMS/HCC)- Primary PAD (peripheral artery disease) (CMS/HCC) Unspecified peripheral vascular disease Primary hypertension (CMS/HCC) Unspecified essential hypertension Stage 3a chronic kidney disease (HCC) (CMS/HCC) Lumbar stenosis with neurogenic claudication Mixed hyperlipidemia ([facility]/HCC) Mixed hyperlipidemia Elevated random blood glucose level Unintentional weight change Gastroesophageal reflux disease without esophagitis Esophageal reflux Coronary artery disease involving greenville coronary artery of greenville heart without angina pectoris (CMS/HCC)- Primary Stage 3a chronic kidney disease (HCC) (CMS/HCC) Lumbar stenosis with neurogenic claudication Primary hypertension ([facility]/HCC)- Primary Unspecified essential hypertension Coronary artery disease involving greenville coronary artery of greenville heart without angina pectoris (CMS/HCC) Stage 3a [...] disease (HCC) (CMS/HCC) documented in this encounter [facility]* Diagnosis Primary hypertension (CMS/HCC)- Primary Unspecified essential hypertension Coronary artery disease involving greenville coronary artery of greenville heart without angina pectoris (CMS/HCC) Stage 3a chronic kidney disease (HCC) (CMS/HCC) Gastroesophageal reflux disease without esophagitis Esophageal reflux Tobacco abuse Tobacco use disorder Prostate cancer (CMS/HCC) Malignant neoplasm of prostate Benign prostatic hyperplasia with lower urinary tract symptoms, symptom details unspecified documented in this encounter [facility] HealthcareEvaluation note* Diagnosis Primary hypertension (CMS/HCC) Unspecified essential hypertension documented in this encounter [facility] HealthcareEvaluation note* Diagnosis Onset Date Resolution Status Admit Date Anemia of renal disease acute M arch 2024 10:35am CKD (chronic kidney disease) stage 3, GFR 30-59 ml/min acute August 15, 2024 10:35am Hypertensive chronic kidney disease with stage 1 through stage 4 chronic ki acute August 15, 2024 10:35am Microscopic hematuria acute Mar 2024 10:35am Secondary hyperparathyroidism acute August 15, 2024 10:35am [facility] Work Phone: Evaluation note* Diagnosis Mixed hyperlipidemia- Primary Bilateral carotid artery disease, unspecified type Hypertension, unspecified type BMI 28.0-28.9,adult Smoker Tobacco use disorder Prostate cancer (Multi) Malignant neoplasm of prostate Chronic kidney disease, stage 3b (Multi) ASHD (arteriosclerotic heart disease) Coronary atherosclerosis of unspecified type of vessel, [place] or graft PVD (peripheral vascular disease) ([facility]-HCC) Unspecified peripheral vascular disease documented in this encounter [facility] Work Phone: Evaluation note* Diagnosis Onset Date Resolution Status Admit Date Anemia of renal disease acute S eptember 2024 11:31am CKD (chronic kidney disease) stage 3, GFR 30-59 ml/min acute Septem 2024 11:31am Hypertensive chronic kidney disease with stage 1 through stage 4 chronic ki acute January 11:31am Microscopic hematuria acute Sep tember 2024 11:31am Secondary hyperparathyroidism acute February 20, 2025 11:31am [facility] Work Phone: [place] general Narrative - Reported* Type Description Date [...] History PROSTATE SURGERY Hospitalization History SEE ABOVE [employer] Other [facility] general Narrative - Reported* Type Description Date [...] ANGIOPLASTY LT 03/2023 Hospitalization History SEE ABOVE [employer] Other Hospital course Narrative No data available for this section [facility] Hospital Discharge instructions No data available for this section [facility] No data available for this section [facility] CenterReason for referral (narrative)* Consultation (Routine) - Authorized Specialty Diagnoses / Procedures Referred By Renata staton Referred To Contact Cardiology Diagnoses Hypertension, unspecified type Mixed hyperlipidemia Bilateral carotid artery disease, unspecified type (CMS/HCC) Procedures Follow Up In Cardiology Chaim Grayson DO [address] [place] [address], [address] [address] Chaim Grayson DO [address] [facility] [address], [address] [address] Referral ID Status Reason Start Date Expiration Date V isits Requested Visits Authorized [id number] Authorized 06/04/2023 06/03/2024 1 1 * Cardiovascular (Routine) - Pending Review Specialty Diagnoses / Procedures Referred By Renata staton Referred To Contact Diagnoses Mixed hyperlipidemia Bilateral carotid artery disease, unspecified type (CMS/HCC) Procedures ECG 12 Lead KenanChaim DO [place] [address] [facility] [address], [address] [place] [id number] Referral ID Status Reason Start Date Expiration Date V isits Requested Visits Authorized [id number] Pending Review 06/04/2023 06/03/2024 1 1 * Consultation (Routine) - Authorized Specialty Diagnoses / Procedures Referred By Contac t Referred To Contact Cardiology Diagnoses Hypertension, unspecified type Bilateral carotid artery disease, unspecified type (CMS/HCC) Procedures Follow Up In Cardiology Kenan Chaim Davison DO [address] [facility] [address], [address] [address] Referral ID Status Reason Start Date Expiration Date V isits Requested Visits Authorized [id number] Authorized 06/04/2023 06/03/2024 1 1 * Cardiac Stress Testing (Routine) - Pending Review Specialty Diagnoses / Procedures Referred By Contac t Referred To Contact Radiology Diagnoses Hypertension, unspecified type Bilateral carotid artery disease, unspecified type (CMS/HCC) Chest pressure Procedures Nuclear Stress Test CHG MYOCARDIAL SPECT MULTIPLE STUDIES CHG MYOCARDIAL SPECT SINGLE STUDY AT REST OR STRESS Chaim Grayson DO [address] [facility] [address], [address] [address] Referral ID Status Reason Start Date Expiration Date V isits Requested Visits Authorized [id number] Pending Review 06/04/2023 06/03/2024 5 5 [facility] Work Phone: Reason for referral (narrative)* Consultation (Routine) - Pending Review Specialty Diagnoses / Procedures Referred By Contac t Referred To Contact Urology Diagnoses Prostate cancer (CMS/HCC) Benign prostatic hyperplasia with lower urinary tract symptoms, symptom details unspecified Procedures NC OFFICE/OUTPATIENT NEW HIGH MDM 60 MINUTES Nasir Ward, VALENTIN [address] [facility] [place] [address] Travis Bryant MD [address] [place] [address] Referral ID Status Reason Start Date Expiration Date Visits Requested Visits Authorized [id number] Pending Review Specialty Services Required 01/20/2024 07/18/2024 1 1 Scheduling Instructions Please include OV note from today and from Dr. Johnston office VLADIMIR Allen for referral (narrative)No reason for referral information availableBl[facility] Work Phone: Summary Purpose Family History [...] Unknown son Heart disease Unknown Advance Directives Advance Directive [...] day juliette riddle PAD (peripheral artery disease) Chief Complaint N18.30 I12.9 N25.81 E78.5 Chief Complaint N18.30 I12.9 N25.81 E78.5 RENAL 1 year follow up Reason for Visit Anemia of renal dise ase CKD (chronic kidney disease) stage 3, GFR 30-59 ml/min [id number] Secondary hyperparathyroidism UTI (urinary tract infection) Chief [...] disease) stage 3, GF R 30-59 ml/min March 17th, 2025 10:35am Hypertensive chronic kidney disease with stage 1 through stage 4 chronic ki August 15, 2024 10:35am Microscopic hematuria August 15, 2024 1 0:35am Secondary hyperparathyroidism July 10:35am Chief Complaint Admit Date renal 6 month [...] 11:31am Secondary hyperparathyroidism February 20, 2025 11:31am Reason for Referral Specialty Diagnoses / Procedures Referred By Contac t Referred To Contact Diagnoses Bilateral carotid artery disease, unspecified type (CMS/HCC) History of NE (myocardial infarction) ASHD (arteriosclerotic heart disease) PVD (peripheral vascular disease) (CMS/HCC) Chest pain, unspecified type Procedures ECG 12 Lead Chaim Grayson DO [address] [place] [address] 2, [place] [id number] Referral ID Status Reason Start Date Expiration Date V isits Requested Visits Authorized [id number] Authorized 08/18/2023 08/17/2024 1 1 Specialty Diagnoses / Procedures Referred By Contac t Referred To Contact Cardiology Diagnoses Bilateral carotid artery disease, unspecified type (CMS/HCC) Procedures Follow Up In Cardiology Chaim Grayson DO [address] [place] [address] 2, [place] [id number] Chaim Grayson, DO [address] [place] [address] [address], [address] [address] Referral ID Status Reason Start Date Expiration Date V isits Requested Visits Authorized [id number] Authorized 08/18/2023 08/17/2024 1 1 Specialty Diagnoses / Procedures Referred By Contac t Referred To Contact Spine [place] Diagnoses Spondylolisthesis of lumbar region Procedures CONSULT TO [facility] (CHRON[facility] PAIN) OFFICE/OUTPATIENT [facility] 60 MINUTES Kodi Reynolds MD [address] [place] [id number] Referral ID Status Reason Start Date Expiration Date Visits Requested Visits Authorized [id number] Pending Review PCP Requested Referral 06/12/2023 06/11/2024 1 1 Specialty Diagnoses / Procedures Referred By Contac t Referred To Contact Diagnoses Spinal stenosis, lumbar region with neurogenic claudication Foraminal stenosis of lumbar region Procedures CONSULT TO SPINE SURGERY OFFICE/OUTPATIENT [facility] 60-74 MINUTES Jose Nichols DO [address] [place] [id number] Referral ID Status Reason Start Date Expiration Date Visits Requested Visits Authorized [id number] Pending Review PCP Requested Referral 05/18/2024 1 1 Specialty Diagnoses / Procedures Referred By Contac t Referred To Contact MR IMAGING Diagnoses Spinal stenosis of lumbar region, unspecified whether neurogenic claudication present Procedures MRI LUMBAR SPINE WO/W IVCON MRI SPINAL CANAL LUMBAR W/O & W/CONTR MATRL Hyun Nazario MD [address] [place] [address] Mr Imaging Referral ID Status Reason Start Date Expiration Date Visits Requested Visits Authorized [id number] Pending Review Auto-Generat ed Referral 11/19/2022 12/19/2023 1 1 Specialty Diagnoses / Procedures Referred By Contac t Referred To Contact Neurosurgery Diagnoses Spinal arthritis Procedures CONSULT TO NEUROSURGERY OFFICE/OUTPATIENT [facility] 60-74 MINUTES Hyun Nazario MD [address] [address] Referral ID Status Reason Start Date Expiration Date Visits Requested Visits Authorized [id number] Pending Review PCP Requested Referral 11/18/2022 11/18/2023 [...] section and content) DATE CREATED AUTHOR 06/12/2021 [facility] DATE CREATED AUTHOR AUTHOR'S ORGANIZ ATION 03/27/2022 [facility] DATE CREATED AUTHOR AUTHOR'S ORGANIZ ATION 11/07/2022 [facility] DATE CREATED AUTHOR AUTHOR'S ORGANIZ ATION 01/06/2023 [facility] DATE CREATED AUTHOR AUTHOR'S ORGANIZ ATION 06/16/2023 [facility] DATE CREATED AUTHOR AUTHOR'S ORGANIZ ATION 06/29/2023 [facility] DATE CREATED AUTHOR AUTHOR'S ORGANIZ ATION 08/17/2023 [facility] DATE CREATED AUTHOR AUTHOR'S ORGANIZ ATION 04/11/2024 [place] [facility] DATE CREATED AUTHOR AUTHOR'S ORGANIZ ATION 04/21/2024 Tristan [place] [facility] DATE CREATED AUTHOR AUTHOR'S ORGANIZ ATION 07/15/2024 [facility] DATE CREATED AUTHOR AUTHOR'S ORGANIZ ATION 08/14/2024 [place] [facility] DATE CREATED AUTHOR AUTHOR'S ORGANIZ ATION 08/15/2024 [place] [facility] DATE CREATED AUTHOR AUTHOR'S ORGANIZ ATION 08/20/2024 [facility] DATE CREATED AUTHOR AUTHOR'S ORGANIZ ATION 08/26/2024 Tristan [place] [facility] DATE CREATED AUTHOR AUTHOR'S ORGANIZ ATION 08/30/2024 Tristan [place] [facility] DATE CREATED AUTHOR AUTHOR'S ORGANIZ ATION 09/02/2024 [facility] DATE CREATED AUTHOR AUTHOR'S ORGANIZ ATION 09/10/2024 Tristan [place] [facility] DATE CREATED AUTHOR AUTHOR'S ORGANIZ ATION 11/09/2024 Tristan [place] [facility] DATE CREATED AUTHOR AUTHOR'S ORGANIZ ATION 01/19/2025 [facility] DATE CREATED AUTHOR AUTHOR'S ORGANIZ ATION 02/05/2025 [facility] REASON FOR VISIT (unrecogniz [...] HIGH MDM 60-74 MINUTES Hyun Nazario MD [address] [place] [address] [address] [place] [id number] Referral ID Status Reason Start Date Expiration Date Visits Requested Visits Authorized [id number] Pending Review PCP Requested Referral 11/18/2022 11/18/2023 1 1 Reason Comments Appointment Confirmation Reason Comments Establish Care Fawwad pvd HTN abn e kg Specialty Diagnoses / Procedures Referred By Contac t Referred To Contact Diagnoses Mixed hyperlipidemia Bilateral carotid artery disease, unspecified type (CMS/HCC) Procedures ECG 12 Lead Chaim Grayson DO [address] [facility] [address], [address] [address] Referral ID Status Reason Start Date Expiration Date V isits Requested Visits Authorized [id number] Pending Review 06/04/2023 06/03/2024 1 1 Reason Comments Low Back Pain New Patient Evaluation New Patient Specialty Diagnoses / Procedures Referred By Contac t Referred To Contact Radiology Diagnoses Hypertension, unspecified type Bilateral carotid artery disease, unspecified type (CMS/HCC) Chest pressure Procedures Nuclear Stress Test CHG MYOCARDIAL SPECT MULTIPLE STUDIES CHG MYOCARDIAL SPECT SINGLE STUDY AT REST OR STRESS Chaim Grayson DO [address] [facility] [address], [address] [place] [id number] Referral ID Status Reason Start Date Expiration Date V isits Requested Visits Authorized [id number] Authorized 06/04/2023 06/03/2024 5 5 Reason Comments Follow-up 1yr Specialty Diagnoses / Procedures Referred By Contac t Referred To Contact Cardiology Diagnoses Hypertension, unspecified type Mixed hyperlipidemia Bilateral carotid artery disease, unspecified type (CMS/HCC) Procedures Follow Up In Cardiology Chaim Grayson DO [address] [facility] [address], [address] [address] Chaim Grayson, [address] [place] [address] 2, [place] [id number] Referral ID Status Reason Start Date Expiration Date V isits Requested Visits Authorized [id number] Authorized 06/04/2023 06/03/2024 1 1 Reason Comments Prostate Cancer Specialty Diagnoses / Procedures Referred By [facility] Referred To Contact Radiation Oncology / RADIATION ONCOLOGY Diagnoses Malignant neoplasm of prostate jeovany treating prostate Procedures SIMULATION SACO IMRT 28fractions Hyun Nazario MD [address] [place] [address] Hyun Nazario MD [address] [place] [address] [address] [place] [id number] Referral ID Status Reason Start Date Expiration Date Visits Re quested Visits Authorized [id number] Closed 02/25/2022 06/20/2022 29 29 Reason Comments Med Refill Reason Onset Date Comments Med Refill 02/02/2024 Reason Onset Date Comments Med Refill 02/18/2024 Reason Comments Follow-up Reason Comments Annual Exam 1y Follow up for Cor onary Artery Disease Specialty Diagnoses / Procedures Referred By [facility] Referred To Contact Cardiology Diagnoses Bilateral carotid artery disease, unspecified type Procedures Follow Up In Cardiology Chaim Grayson, [address] [place] [address], [address] [address] Phone: tel: fax: Chaim Grayson, [address] [place] [address] 2, [address] [address] Phone: tel: fax: Referral ID Status Reason Start Date Expiration Date V isits Requested Visits Authorized [id number] Authorized 08/18/2023 08/17/2024 1 1 Reason Onset [...] or prosecute any alcohol or drug abuse patient.[facility] Center[facility] the event this information is protected by the Federal Confidentiality of Alcohol and Drug Abuse Patient Records regulations: The Federal rules restrict any use of the information to criminally investigate or prosecute any alcohol or drug abuse patient.[facility] CenterIn the event this information is protected by the Federal Confidentiality of Alcohol and Drug Abuse Patient Records regulations: The Federal rules restrict any use of the information to criminally investigate or prosecute any alcohol or drug abuse patient.[facility] CenterIn the event this information is protected by the Federal Confidentiality of Alcohol and Drug Abuse Patient Records regulations: The Federal rules restrict any use of the information to criminally investigate or prosecute any alcohol or drug abuse patient.[facility] CenterIn the event this information is protected by the Federal Confidentiality of Alcohol and Drug Abuse Patient Records regulations: The Federal rules restrict any use of the information to criminally investigate or prosecute any alcohol or drug abuse patient.[facility] CenterIn the event this information is protected by the Federal Confidentiality of Alcohol and Drug Abuse Patient Records regulations: The Federal rules restrict any use of the information to criminally investigate or prosecute any alcohol or drug abuse patient.[facility] CenterIn the event this information is protected by the Federal Confidentiality of Alcohol and Drug Abuse Patient Records regulations: The Federal rules restrict any use of the information to criminally investigate or prosecute any alcohol or drug abuse patient.[facility] CenterIn the event this information is protected by the Federal Confidentiality of Alcohol and Drug Abuse Patient Records regulations: The Federal rules restrict any use of the information to criminally investigate or prosecute any alcohol or drug abuse patient.[facility] CenterIn the event this information is protected by the Federal Confidentiality of Alcohol and Drug Abuse Patient Records regulations: The Federal rules restrict any use of the information to criminally investigate or prosecute any alcohol or drug abuse patient.[facility] CenterIn the event this information is protected by the Federal Confidentiality of Alcohol and Drug Abuse Patient Records regulations: The Federal rules restrict any use of the information to criminally investigate or prosecute any alcohol or drug abuse patient.[facility] CenterIn the event this information is protected by the Federal Confidentiality of Alcohol and Drug Abuse Patient Records regulations: The Federal rules restrict any use of the information to criminally investigate or prosecute any alcohol or drug abuse patient.[facility] CenterIn the event this information is protected by the Federal Confidentiality of Alcohol and Drug Abuse Patient Records regulations: The Federal rules restrict any use of the information to criminally investigate or prosecute any alcohol or drug abuse patient.[facility] CenterIn the event this information is protected by the Federal Confidentiality of Alcohol and Drug Abuse Patient Records regulations: The Federal rules restrict any use of the information to criminally investigate or prosecute any alcohol or drug abuse patient.[facility] CenterIn the event this information is protected by the Federal Confidentiality of Alcohol and Drug Abuse Patient Records regulations: The Federal rules restrict any use of the information to criminally investigate or prosecute any alcohol or drug abuse patient.[facility] CenterIn the event this information is protected by the Federal Confidentiality of Alcohol and Drug Abuse Patient Records regulations: The Federal rules restrict any use of the information to criminally investigate or prosecute any alcohol or drug abuse patient.[facility] CenterIn the event this information is protected by the Federal Confidentiality of Alcohol and Drug Abuse Patient Records regulations: The Federal rules restrict any use of the information to criminally investigate or prosecute any alcohol or drug abuse patient.[facility] CenterIn the event this information is protected by the Federal Confidentiality of Alcohol and Drug Abuse Patient Records regulations: The Federal rules restrict any use of the information to criminally investigate or prosecute any alcohol or drug abuse patient.[facility] CenterIn the event this information is protected by the Federal Confidentiality of Alcohol and Drug Abuse Patient Records regulations: The Federal rules restrict any use of the information to criminally investigate or prosecute any alcohol or drug abuse patient.[facility] CenterIn the event this information is protected by the Federal Confidentiality of Alcohol and Drug Abuse Patient Records regulations: The Federal rules restrict any use of the information to criminally investigate or prosecute any alcohol or drug abuse patient.[facility] CenterIn the event this information is protected by the Federal Confidentiality of Alcohol and Drug Abuse Patient Records regulations: The Federal rules restrict any use of the information to criminally investigate or prosecute any alcohol or drug abuse patient.[facility] CenterIn the event this information is protected by the Federal Confidentiality of Alcohol and Drug Abuse Patient Records regulations: The Federal rules restrict any use of the information to criminally investigate or prosecute any alcohol or drug abuse patient.[facility] CenterIn the event this information is protected by the Federal Confidentiality of Alcohol and Drug Abuse Patient Records regulations: The Federal rules restrict any use of the information to criminally investigate or prosecute any alcohol or drug abuse patient.[facility] CenterIn the event this information is protected by the Federal Confidentiality of Alcohol and Drug Abuse Patient Records regulations: The Federal rules restrict any use of the information to criminally investigate or prosecute any alcohol or drug abuse patient.[facility] CenterIn the event this information is protected by the Federal Confidentiality of Alcohol and Drug Abuse Patient Records regulations: The Federal rules restrict any use of the information to criminally investigate or prosecute any alcohol or drug abuse patient.[facility] CenterIn the event this information is protected by the Federal Confidentiality of Alcohol and Drug Abuse Patient Records regulations: The Federal rules restrict any use of the information to criminally investigate or prosecute any alcohol or drug abuse patient.[facility] CenterIn the event this information is protected by the Federal Confidentiality of Alcohol and Drug Abuse Patient Records regulations: The Federal rules restrict any use of the information to criminally investigate or prosecute any alcohol or drug abuse patient.[facility] CenterIn the event this information is protected by the Federal Confidentiality of Alcohol and Drug Abuse Patient Records regulations: The Federal rules restrict any use of the information to criminally investigate or prosecute any alcohol or drug abuse patient.[facility] CenterIn the event this information is protected by the Federal Confidentiality of Alcohol and Drug Abuse Patient Records regulations: The Federal rules restrict any use of the information to criminally investigate or prosecute any alcohol or drug abuse patient.[facility] CenterIn the event this information is protected by the Federal Confidentiality of Alcohol and Drug Abuse Patient Records regulations: The Federal rules restrict any use of the information to criminally investigate or prosecute any alcohol or drug abuse patient.[facility] CenterIn the event this information is protected by the Federal Confidentiality of Alcohol and Drug Abuse Patient Records regulations: The Federal rules restrict any use of the information to criminally investigate or prosecute any alcohol or drug abuse patient.[facility] CenterIn the event this information is protected by the Federal Confidentiality of Alcohol and Drug Abuse Patient Records regulations: The Federal rules restrict any use of the information to criminally investigate or prosecute any alcohol or drug abuse patient.[facility] CenterIn the event this information is protected by the Federal Confidentiality of Alcohol and Drug Abuse Patient Records regulations: The Federal rules restrict any use of the information to criminally investigate or prosecute any alcohol or drug abuse patient.[facility] CenterIn the event this information is protected by the Federal Confidentiality of Alcohol and Drug Abuse Patient Records regulations: The Federal rules restrict any use of the information to criminally investigate or prosecute any alcohol or drug abuse patient.[facility] CenterIn the event this information is protected by the Federal Confidentiality of Alcohol and Drug Abuse Patient Records regulations: The Federal rules restrict any use of the information to criminally investigate or prosecute any alcohol or drug abuse patient.[facility] CenterIn the event this information is protected by the Federal Confidentiality of Alcohol and Drug Abuse Patient Records regulations: The Federal rules restrict any use of the information to criminally investigate or prosecute any alcohol or drug abuse patient.[facility] CenterIn the event this information is protected by the Federal Confidentiality of Alcohol and Drug Abuse Patient Records regulations: The Federal rules restrict any use of the information to criminally investigate or prosecute any alcohol or drug abuse patient.[facility] Care Teams (unrecognized sec tion and content) Team Status: Active Member Role Status Dates Brian Avalos MD Primary Care Provider Active Team Status: Active Member Role Status Dates Brian Avalos MD Primary Care Provider Active S tart: February 13, 2025 Theo Thakkar MD Attending Provider Active Start : February 13, 2025 Team Status: Inactive Member Role Status Dates Brian Avalos MD Primary Care Provider Active S tart: February 20, 2025 End: February 20, 2025 Theo Thakkar MD Attending Provider Active Start : February 20, 2025 End: February 20, 2025 Team Status: Active Member Role Status Dates [...] Primary Care Provider, Other Provid er Active ABE Barnard Attending Provider Active Supervisor [employer] Relationship Specialty Start Date End Date Shaikh Storm MD [address] [place] [address] PCP - General Primary Care 12/06/21 Barbara Johnston MD [address] [place] [address] Referring Urology 12/06/21 Supervisor [employer] Relationship Specialty Start Date End Date Shaikh Storm MD [address] [place] [address] PCP - General Primary Care 12/06/21 Barbara Johnston MD [address] [place] [address] Referring Urology 12/06/21 Supervisor [employer] [place] Relationship Specialty Start Date End Date Shaikh Storm MD [address] [place] [address] PCP - General Primary Care 12/06/21 Barbara Johnston MD [address] [place] [address] Referring Urology 12/06/21 Supervisor [employer] Relationship Specialty Start Date End Date Shaikh Storm MD [address] [place] [address] PCP - General Primary Care 12/06/21 Barbara Johnston MD [address] [place] [address] Referring Urology 12/06/21 Supervisor [employer] Relationship Specialty Start Date End Date Shaikh Storm MD [address] [place] [address] PCP - General Primary Care 12/06/21 Barbara Johnston MD [address] [place] [address] Referring Urology 12/06/21 Constance Durand LSW Help Desk Assistant 03/04/22 Supervisor [employer] Relationship Specialty Start Date End Date Shaikh Storm MD [address] [place] [address] PCP - General Primary Care 12/06/21 Barbara Johnston MD [address] [place] [address] Referring Urology 12/06/21 Constance Durand LSW Help Desk Assistant 03/04/22 Supervisor [employer] Relationship Specialty Start Date End Date Shaikh Storm MD [address] [place] [address] PCP - General Primary Care 12/06/21 Barbara Johnston MD [address] [place] [address] Referring Urology 12/06/21 Constance Durand WORKFORCE ADVISOR Help Desk Assistant 03/04/22 Supervisor [employer] [place] Relationship Specialty Start Date End Date Shaikh Storm MD [address] [place] [address] PCP - General Primary Care 12/06/21 Barbara Johnston MD [address] [place] [address] Referring Urology 12/06/21 Constance Durand LSW Help Desk Assistant 03/04/22 Supervisor [employer] Relationship Specialty Start Date End Date Shaikh Storm MD [address] [place] [address] PCP - General Primary Care 12/06/21 Barbara Johnston MD [address] [place] [address] Referring Urology 12/06/21 Constance Durand LSW Help Desk Assistant 03/04/22 Supervisor [employer] Relationship Specialty Start Date End Date Shaikh Storm MD [address] [place] [address] PCP - General Primary Care 12/06/21 Barbara Johnston MD [address] [place] [address] Referring Urology 12/06/21 Constance Durand LSW Help Desk Assistant 03/04/22 Supervisor [employer] Relationship Specialty Start Date End Date Shaikh Storm MD [address] [place] [address] PCP - General Primary Care 12/06/21 Barbara Johnston MD [address] [place] [address] Referring Urology 12/06/21 Constance Durand WORKFORCE ADVISOR Help Desk Assistant 03/04/22 Supervisor [employer] Relationship Specialty Start Date End Date Shaikh Storm MD [address] [place] [address] PCP - General Primary Care 12/06/21 Barbara Johnston MD [address] [place] [address] Referring Urology 12/06/21 Constance Durand LSW Help Desk Assistant 03/04/22 Supervisor [employer] Relationship Specialty Start Date End Date Shaikh Storm MD [address] [place] [address] PCP - General Primary Care 12/06/21 Barbara Johnston MD [address] [place] [address] Referring Urology 12/06/21 Constance Durand LSW Help Desk Assistant 03/04/22 Supervisor [employer] Relationship Specialty Start Date End Date Shaikh Storm MD [address] [place] [address] PCP - General Primary Care 12/06/21 Barbara Johnston MD [address] [place] [address] Referring Urology 12/06/21 Constance Durand LSW Help Desk Assistant 03/04/22 Supervisor [employer] Relationship Specialty Start Date End Date Shaikh Storm MD [address] [place] [address] PCP - General Primary Care 12/06/21 Barbara Johnston MD [address] [place] [address] Referring Urology 12/06/21 Constance Durand LSW Help Desk Assistant 03/04/22 Team Status: Inactive Member Role Status Dates Shaikh Dotty MD Primary Care Provider Active Zeinab Justice MD Attending Provider Active Supervisor [employer] Relationship Specialty Start Date End Date Shaikh Storm MD [address] [place] [address] PCP - General Primary Care 12/06/21 Barbara Johnston MD [address] [place] [address] Referring Urology 12/06/21 Constance Durand LSW Help Desk Assistant 03/04/22 Team Status: Inactive Member Role Status Dates Shaikh Dotty MD Primary Care Provider Active Lyla Nazario MD Attending Provider Active Supervisor [employer] Relationship Specialty Start Date End Date Shaikh Storm MD [address] [place] [address] PCP - General Primary Care 12/06/21 Barbara Johnston MD [address] [place] [address] Referring Urology 12/06/21 Constance Durand, [facility] Help Desk Assistant 03/04/22 Supervisor [employer] Relationship Specialty Start Date End Date Shaikh Storm MD [address] [place] [address] PCP - General Primary Care 12/06/21 Barbara Johnston MD [address] [place] [address] Referring Urology 12/06/21 Constance Durand, [facility] Help Desk Assistant 03/04/22 Supervisor [employer] Relationship Specialty Start Date End Date Shaikh Storm MD [address] [place] [address] PCP - General Primary Care 12/06/21 Barbara Johnston MD [address] [place] [address] Referring Urology 12/06/21 Constance Durand, [facility] Help Desk Assistant 03/04/22 Supervisor [employer] Relationship Specialty Start Date End Date Shaikh Storm MD [address] [place] [address] PCP - General Primary Care 12/06/21 Barbara Johnston MD [address] [place] [address] Referring Urology 12/06/21 Constance Durand, [facility] Help Desk Assistant 03/04/22 Supervisor [employer] Relationship Specialty Start Date End Date Shaikh Storm MD [address] [place] [address] PCP - General Primary Care 12/06/21 Barbara Johnston MD [address] [place] [address] Referring Urology 12/06/21 Constance Durand, [facility] Help Desk Assistant 03/04/22 Supervisor [employer] Relationship Specialty Start Date End Date Shaikh Storm MD [address] [place] [address] PCP - General Primary Care 12/06/21 Barbara Johnston MD [address] [place] [address] Referring Urology 12/06/21 Constance Durand, [facility] Help Desk Assistant 03/04/22 Supervisor [employer] Relationship Specialty Start Date End Date Shaikh Storm MD [address] [place] [address] PCP - General Primary Care 12/06/21 Barbara Johnston MD [address] [place] [address] Referring Urology 12/06/21 Constance Durand, [facility] Help Desk Assistant 03/04/22 Supervisor [employer] Relationship Specialty Start Date End Date Shaikh Storm MD [address] [place] [address] PCP - General Primary Care 12/06/21 Barbara Johnston MD [address] [place] [address] Referring Urology 12/06/21 Constance Durand LSW Help Desk Assistant 03/04/22 Supervisor [employer] Relationship Specialty Start Date End Date Shaikh Storm MD [address] [place] [address] PCP - General Primary Care 12/06/21 Barbara Johnston MD [address] [place] [address] Referring Urology 12/06/21 Constance Durand LSW Help Desk Assistant 03/04/22 Team Status: Inactive Member Role Status Dates Shaikh Dotty MD Primary Care Provider Active Temporary Anesthesiologist Attending Provider Active Supervisor [employer] Relationship Specialty Start Date End Date Shaikh Storm MD [address] [place] [address] PCP - General Primary Care 12/06/21 Barbara Johnston MD [address] [place] [address] Referring Urology 12/06/21 Constance Durand LSW Help Desk Assistant 03/04/22 Team Status: Inactive Member Role Status Dates Shaikh Dotty MD Primary Care Provider Active Jose Martin Mchugh MD Attending Provider Active Team Status: Inactive Member Role Status Dates Shaikh Dotty MD Primary Care Provider Active Theo Thakkar MD Attending Provider Active Supervisor [employer] Relationship Specialty Start Date End Date Shaikh Storm MD [address] [place] [address] PCP - General Primary Care 12/06/21 Barbara Johnston MD [address] [place] [address] Referring Urology 12/06/21 Constance Durand LSW Help Desk Assistant 03/04/22 Supervisor [employer] Relationship Specialty Start Date End Date Shaikh Storm MD [address] [place] [address] PCP - General Primary Care 12/06/21 Barbara Johnston MD [address] [place] [address] Referring Urology 12/06/21 Constance Durand LSW Help Desk Assistant 03/04/22 Team Status: Inactive Member Role Status Steven Storm MD Primary Care Provider, Attending Pr ovider Active Supervisor [employer] Relationship Specialty Start Date End Date Shaikh Storm MD [address] [address] PCP - General Internal Medicine 06/04/23 Supervisor [employer] Relationship Specialty Start Date End Date Shaikh Storm MD [address] [address] PCP - General Primary Care 12/06/21 Barbara Johnston MD [address] [place] [address] Referring Urology 12/06/21 Constance Durand LSW Help Desk Assistant 03/04/22 Supervisor [employer] Relationship Specialty Start Date End Date Shaikh Storm MD [address] [address] PCP - General Internal Medicine 06/04/23 Supervisor [employer] Relationship Specialty Start Date End Date Shaikh Storm MD [address] [place] [address] PCP - General Internal Medicine 06/04/23 Supervisor [employer] Relationship Specialty Start Date End Date Shaikh Storm MD PCP - General Internal Medicine 06/04/23 Team Status: Inactive Member Role Status Dates Shaikh Dotty MD Primary Care Provider Active Start: October 15, 2023 End: October 15, 2023 Bonnie Tan NP-C Attending Provider Active Start: October 15, 2023 End: October 15, 2023 Supervisor [employer] Relationship Specialty Start Date End Date Shaikh Storm MD [address] [place] [address] PCP - General Primary Care 12/06/21 Barbara Johnston MD [address] [place] [address] Referring Urology 12/06/21 Constance Durand LSW Help Desk Assistant 03/04/22 Supervisor [employer] Relationship Specialty Start Date End Date Shaikh Storm MD [address] [place] [address] PCP - General Primary Care 12/06/21 Barbara Johnston MD [address] [place] [address] Referring Urology 12/06/21 Constance Durand LSW Help Desk Assistant 03/04/22 Team Status: Active Member Role Status [...] February 29, 2024 End: February 29, 2024 Supervisor [employer] Relationship Specialty Start Date End Date Brian Avalos MD [address] [place] [address] PCP - General Family Medicine 01/12/24 Nasir Ward NP [address] [place] [address] Nurse Practitioner Family Medicine 01/12/24 Supervisor [employer] Relationship Specialty Start Date End Date Brian Avalos MD [address] [place] [address] PCP - General Family Medicine 01/12/24 Nasir Ward NP [address] [place] [address] Nurse Practitioner Family Medicine 01/12/24 Supervisor [place] Relationship Specialty Start Date End Date Brian Avalos MD [address] [place] [address] PCP - General Family Medicine 01/12/24 Nasir Ward NP [address] [place] [place] [address] Nurse Practitioner Family Medicine 01/12/24 Supervisor [place] [place] Relationship Specialty Start Date End Date Brian Avalos MD [address] [place] [address] PCP - General Family Medicine 01/12/24 Nasir Ward NP [address] [place] [address] Nurse Practitioner Family Medicine 01/12/24 Supervisor [employer] Relationship Specialty Start Date End Date Brian Avalos MD [address] [place] [address] PCP - General Family Medicine 01/12/24 Nasir Ward NP [address] [place] [address] Nurse Practitioner Family Medicine 01/12/24 Supervisor [place] Relationship Specialty Start Date End Date Brian Avalos MD [address] [place] [address] PCP - General Family Medicine 01/12/24 Nasir Ward NP [address] [place] [address] Nurse Practitioner Family Medicine 01/12/24 Supervisor [place] [place] Relationship Specialty Start Date End Date Brian Avalos MD [address] [place], [place] [address] PCP - General Family Medicine 01/12/24 Nasir Ward NP [address] [place] [address] Nurse Practitioner Family Medicine 01/12/24 Team Status: [...] August 15, 2024 End: August 15, 2024 Supervisor [employer] Relationship Specialty Start Date End Date Shaikh Storm MD PCP - General Internal Medicine 06/04/23 Supervisor [place] Relationship Specialty Start Date End Date Brian Avalos MD [address] [place] [address] PCP - General Family Medicine 01/12/24 Nasir Ward NP [address] [place] [address] Nurse Practitioner Family Medicine 01/12/24 Supervisor [place] Relationship Specialty Start Date End Date Brian Avalos MD [address] [place] [address] PCP - General Family Medicine 01/12/24 Nasir Ward NP [address] [place] [address] Nurse Practitioner Family Medicine 01/12/24 Supervisor [place] Relationship Specialty Start Date End Date Shaikh Storm MD [address] [address] PCP - General Primary Care 12/06/21 Barbara Johnston MD [address] [address] Referring Urology 12/06/21 Constance Durand LSW Help Desk Assistant 03/04/22 Supervisor [place] Relationship Specialty Start Date End Date Brian Avalos MD PCP - General Family Medicine 01/12/24 Nasir Ward NP Nurse Practitioner Family Medicine 01/12/24 Team Status: Active Member Role Status Dates Brian Avalos MD Primary Care Provider Active S tart: February 13, 2025 Theo Thakkar MD Attending Provider Active Start : February 13, 2025 Team Status: Inactive Member Role Status Dates Brian Avalos MD Primary Care Provider Active S tart: February 20, 2025 End: February 20, 2025 Theo Thakkar MD Attending Provider Active Start : February 20, 2025 End: February 20, 2025 Goals (unrecognized section and content) Goals may [...] BE BASED ON THE PRIMARY CLINICAL RECORDS. [facility]. provides no warranty or guarantee of the accuracy or completeness of information in this document.
== END 2025-02-21 09:50 | disposition home or self-care (01) ==
LOC: CT 09:49
PROVIDERS: PCP Internal Medicine; Visit Provider Nurse Practitioner
DX: M48.062 Spinal stenosis, lumbar region with neurogenic claudication (principal); M51.369 Other intervertebral disc degeneration, lumbar region without mention of lumbar back pain or lower extremity pain
CPT/HCPCS: 72131; 76376

== ENCOUNTER 2025-03-02 13:17 | Outpatient (OUT) | payer MEDICARE, SELFPAY ==
--- OUTSIDE RECORDS SUMMARY | 2025-02-20 07:56 | XMS_ITS | Continuity of Care Document ---
Author Organization [facility] Address [address] [place] [address] Phone Care Team Providers Care Baker Helper Name Role Phone Brian Avalos MD Primary Care Provider [phone] Andre Thakkar Attending Provider [phone] Care Teams Patient Care Team Team Status: Active Member Role Status Dates Brian Avalos MD Primary Care Provider Active Patient Care Team Team Status: Active Member Role Status Dates Brian Avalos MD Primary Care Provider Active S tart: February 13, 2025 Theo Thakkar MD Attending Provider Active Start : February 13, 2025 Patient Care Team Team Status: Inactive Member Role Status Dates Brian Avalos MD Primary Care Provider Active S tart: February 20, 2025 End: February 20, 2025 Theo Thakkar MD Attending Provider Active Start : February 20, 2025 End: February 20, 2025 Chief Complaint and Reason for Visit Chief Complaint Admit Date renal 6 month f/u February 20, 2025 11:31am Reason for Visit Admit Date Anemia of renal disease February 20, 2025 11:31am CKD (chronic kidney disease) stage 3, GF R 30-59 ml/min February 20, 2025 11:31am Hypertensive chronic kidney disease with stage 1 through stage 4 chronic ki February 20, 2025 11:31am Microscopic hematuria February 20 11:31am Secondary hyperparathyroidism February 20, 2025 11:31am Allergies, Adverse Reactions, Alerts Allergen Type Severity Reaction Last Updated Verified Status ezetimibe Adverse Reaction Unknown Muscle Pain Septemb er 2024 8:35am Yes Active Social History Smoking Status Status Start Date End Date Date of Observa tion Smokes tobacco daily (finding) February 20, 2025 11:39am Observation Status Observation Response Date of Response Legal Sex Male (finding) Sex Assigned At Male [birth year] Family History Relationship Condition Age at Onset Recorded Date/T yudi father Parkinson's disease Unknown Diabetes mellitus Unknown mother Heart disease Unknown father Unknown Diabetes mellitus Unknown Parkinson's disease Unknown mother Hypertension Unknown Heart disease Unknown Family history of mental disorder Unknown Unknown son Heart disease Unknown Problems Active Problems Medical Problem Onset Date Status UTI (urinary tract infection) Unknown Ac tive Current every day smoker Unknown Active Secondary hyperparathyroidism Unknown Ac tive CKD (chronic kidney disease) stage 3, GFR 30-59 ml/min Unknown Active Hypertensive chronic kidney disease with stage 1 through stage 4 chronic kidney disease, or unspecified chronic kidney disease Unknown Active Microscopic hematuria Unknown Active PAD (peripheral artery disease) Unknown Active Anemia of renal disease Unknown Active Inactive/Resolved Problems Medical Problem Onset Date Status Corneal laceration of left eye Unknown R esolved Medications Medication Status Dose Units Route Directions Qty Days St art Date Stop Date End Date Instructions Adherence Ergocalcife rol (Vitamin D2) 1,250 mcg (50,000 unit) capsule Discont inued 0 .ROUTE .COMPLEX 14 Octobe r 2023 10:14a m October 03, 2024 2:51p m TAKE 1 CAPSULE BY MOUTH ONCE A WEEK Clopidogrel 75 mg tablet Active 75 MG PO Daily 90 180 Novemb er 2023 3:46pm Complies with drug therapy Ergocalcife rol (Vitamin D2) 1,250 mcg (50,000 unit) capsule Active 0 .ROUTE .COMPLEX October 03, 2024 2:51pm TAKE 1 CAPSULE BY MOUTH ONCE A WEEK Complies with drug therapy Hydrocodone -Acetaminop hen 5-325 mg tablet Discont inued 1 TAB PO Twice daily as needed for Pain November 22, 2021 12:00a m [facility] 2022 11:57 am Lisinopril 20 mg tablet Discont inued 20 MG PO Daily November 22, 2021 12:00a m October 15, 2023 9:17a m Pravastatin 10 mg tablet Discont inued 10 MG PO Daily November 22, 2021 12:00a m Octob er 2022 10:03 am Baclofen 10 mg tablet Discont inued 10 MG PO Daily at bedtime November 22, 2021 12:00a m August 15, 2024 10:38 am Amlodipine 10 mg tablet Active 10 MG PO Daily November 22, 2021 12:00a m Complies with drug therapy Terazosin 10 mg capsule Discont inued 10 MG PO Daily at bedtime November 22, 2021 12:00a m October 15, 2023 9:17a m Atenolol 50 mg tablet Discont inued 50 MG PO Daily November 22, 2021 12:00a m October 15, 2023 9:17a m Pregabalin 50 mg capsule Discont inued 50 MG PO Twice daily November 22, 2021 12:00a m Septe mber 2022 11:58 am Pravastatin 40 mg Tablet Active 40 MG PO Every evening 90 180 Octobe r 2022 12:00a m Complies with drug therapy Clopidogrel 75 mg Tablet Discont inued 75 MG PO Daily 90 180 Octobe r 2022 12:00a m [facility] 2023 3:46p m Hydrocodone -Acetaminop hen 7.5-325 mg tablet Discont inued 1 TAB PO Three times daily as needed for Pain 2022 12:00a m [facility] 2023 11:39 am Aspirin (Aspir-81) 81 mg Tablet,Radha yed Release (Dr/Ec) Active 81 MG PO Daily 2022 12:00a m Complies with drug therapy Gabapentin 100 mg Capsule Discont inued 100 MG PO Daily 2022 12:00a m August 15, 2024 10:38 am Oxybutynin Chloride 5 mg Tablet Discont inued 5 MG PO Daily at bedtime 2022 12:00a m October 15, 2023 9:17a m Ofloxacin 0.3 % drops Discont inued 2 DROPS EYE-LE FT Every 6 hours 2024 1:00am August 15, 2024 10:38 am 2 drps Left Eye; Hydrocodone -Acetaminop hen 5-325 mg tablet Active 1 TAB PO Daily as needed 2023 12:00a m Complies with drug therapy Varenicline Tartrate (Chantix Starting Month Box) 0.5 mg (11)- 1 mg (42) tablets,dos e pack Discont inued 0 PO per package directions 2023 12:00a m August 15, 2024 10:38 am PO PER PKG DIR Doxycycline Hyclate 100 mg tablet Discont inued 100 MG PO Twice daily 14 2023 12:00a m August 15, 2024 10:38 am Valsartan 80 mg tablet Active 80 MG PO Daily October 15, 2023 12:00a m Complies with drug therapy Omeprazole 40 mg capsule,del ayed release(DR/ EC) Discont inued 40 MG PO Daily October 15, 2023 12:00a m 2023 11:41 am Ergocalcife rol (Vitamin D2) 1,250 mcg (50,000 unit) capsule Discont inued 35569 UNIT PO Once a week September 15, 2023 12:00a m September 15, 2023 5:44p m Ergocalcife rol (Vitamin D2) 1,250 mcg (50,000 unit) capsule Discont inued 06886 UNIT PO Once a week September 15, 2023 5:43pm Octob er 2023 10:15 am Nitroglycer in 0.4 mg tablet, sublingual Active 0.4 MG SUBLIN GUAL Q5M August 15, 2024 12:00a m do not exceed 3 doses per episode Complies with drug therapy Immunizations Immunization Event Date Not Given Reason Dose Number 2Nd Pressman Lot Number Vaccine Information Statement (VIS) Detail Administration Location COVID-19 mRNA-1273 (Moderna) June 25, 2020 COVID-19 mRNA-1273 (Moderna) July 26, 2020 Medical Equipment Device Date Implanted Device Details Multiple peripheral artery stent, bare-metal March 23, 2023 GAURANG: [id number] Issuing Agency: [employer] Device Id: [id number] Expiration Date: 2025-08-23 Serial Number: [id number] Relevant Diagnostic Tests and/or Laboratory Data Laboratory Results Test Collection Date/Time Result Date/Time Result Interpretation Reference Range Result Comment Performing Site Parathyr oid Hormone (Intact) February 13, 2025 10:59am February 13, 2025 10:59am 81 pg/mL Abnormal (applies to non-numeric results) Performed at: - [facility] [id number] Director: Rojelio Nelson PhD, Phone: [phone] 25-[place] xy Vitamin D Total February 13, 2025 10:59am February 13, 2025 10:59am 43.3 ng/mL <20 ng/mL Vit D [id number] -<30 ng/mL Vit D insufficien t30-100 ng/mL Vit D sufficient> 100 ng/mL Potential Toxicity Ferritin February 13, 2025 10:59am February 13, 2025 10:59am 45.0 ng/mL 26.0-388.0 Iron Saturati on February 13, 2025 10:59am February 13, 2025 10:59am 22.6 % Magnesiu m Level February 13, 2025 10:59am February 13, 2025 10:59am 2.0 mg/dL 1.8-2.4 Uric Acid February 13, 2025 10:59am February 13, 2025 10:59am 6.6 mg/dL 3.5-7.2 Anion Gap February 13, 2025 10:59am February 13, 2025 10:59am 14.6 Hematocr it February 13, 2025 10:59am February 13, 2025 10:59am 39.3 % Below low normal 42.0-54.0 Urine Random Creatini ne February 13, 2025 12:30pm February 13, 2025 12:30pm 214.61 mg/dL 20.00-300. 00 Urine Other Casts February 13, 2025 12:30pm NONE SEEN #/LPF NONE SEEN Iron Level February 13, 2025 10:59am February 13, 2025 10:59am 80.0 ug/dL 65.0-175.0 Albumin February 13, 2025 10:59am February 13, 2025 10:59am 3.8 g/dL 3.4-5.0 Hemoglob in February 13, 2025 10:59am February 13, 2025 10:59am 12.9 g/dL Below low normal 14.0-18.0 Urine Protein/ Creatini ne Ratio February 13, 2025 12:30pm February 13, 2025 12:30pm 0.69 Urine Other Crystals February 13, 2025 12:30pm None Seen #/HPF None Seen Total Iron Binding Capacity February 13, 2025 10:59am February 13, 2025 10:59am 354.0 ug/dL 250.0-450. 0 BUN/Crea tinine Ratio February 13, 2025 10:59am February 13, 2025 10:59am 14.5 Mean Corpuscu lar Hemoglob in February 13, 2025 10:59am February 13, 2025 10:59am 30.9 pg 25.9-34.0 Urine Random Total Protein February 13, 2025 12:30pm February 13, 2025 12:30pm 147.8 mg/dL Above high normal <=11.9 Urine Bacteria February 13, 2025 12:30pm SMALL #/HPF Abnormal (applies to non-numeric results) NONE SEEN Blood Urea Nitrogen February 13, 2025 10:59am February 13, 2025 10:59am 28.0 mg/dL Above high normal 7.0-18.0 Mean Corpuscu lar Hemoglob in Concent February 13, 2025 10:59am February 13, 2025 10:59am 32.8 g/dL 29.9-35.2 Urine Bilirubi n February 13, 2025 12:30pm SMALL Abnormal (applies to non-numeric results) NEGATIVE Calcium Level February 13, 2025 10:59am February 13, 2025 10:59am 9.2 mg/dL 8.5-10.1 Mean Corpuscu lar Volume February 13, 2025 10:59am February 13, 2025 10:59am 94.0 fL 80.0-94.0 Urine Occult Blood February 13, 2025 12:30pm TRACE-I NEGATIVE Chloride Level February 13, 2025 10:59am February 13, 2025 10:59am 106 mmol/L 98-107 Mean Platelet Volume February 13, 2025 10:59am February 13, 2025 10:59am 10.3 fL 9.5-13.5 Urine Appearan ce February 13, 2025 12:30pm SL CLOUDY CLEAR Carbon Dioxide Level February 13, 2025 10:59am February 13, 2025 10:59am 23.6 mmol/L 21.0-32.0 Platelet Count February 13, 2025 10:59am February 13, 2025 10:59am 271 10 3/uL 150-450 Urine Color February 13, 2025 12:30pm LT. YELLOW YELLOW Creatini ne February 13, 2025 10:59am February 13, 2025 10:59am 1.93 mg/dL Above high normal 0.70-1.30 Red Blood Count February 13, 2025 10:59am February 13, 2025 10:59am 4.18 10 6/uL Below low normal 4.70-6.10 Urine Glucose (UA) February 13, 2025 12:30pm NEGATIVE mg/dL NEGATIVE Estimate d GFR ( ) February 13, 2025 10:59am February 13, 2025 10:59am 41 Below low normal >=60 mL/min/1.7 3m 2 Red Cell Distribu tion Width February 13, 2025 10:59am February 13, 2025 10:59am 13.6 % 11.0-15.0 Urine Ketones February 13, 2025 12:30pm TRACE mg/dL Abnormal (applies to non-numeric results) NEGATIVE Estimate d GFR (Non-Afr ican Nigerien February 13, 2025 10:59am February 13, 2025 10:59am 34 Below low normal >=60 mL/min/1.7 3m 2 Correcte d White Blood Count February 13, 2025 10:59am February 13, 2025 10:59am 8.0 10 3/uL 4.0-11.0 Urine Leukocyt e Esterase February 13, 2025 12:30pm LARGE Abnormal (applies to non-numeric results) NEGATIVE Glucose Level February 13, 2025 10:59am February 13, 2025 10:59am 105 mg/dL 74-106 Urine Mucus February 13, 2025 12:30pm NONE SEEN NONE SEEN [place]ass[place] m Level February 13, 2025 10:59am February 13, 2025 10:59am 5.2 mmol/L Above high normal 3.5-5.1 Urine Nitrite February 13, 2025 12:30pm NEGATIVE NEGATIVE Sodium Level February 13, 2025 10:59am February 13, 2025 10:59am 139 mmol/L 136-145 Urine pH February 13, 2025 12:30pm 5.5 5.0-9.0 Phosphor us Level February 13, 2025 10:59am February 13, 2025 10:59am 3.9 mg/dL 2.6-4.7 Urine Protein February 13, 2025 12:30pm 100 mg/dL Abnormal (applies to non-numeric results) NEG/TRACE Urine RBC February 13, 2025 12:30pm 0-2 #/HPF 0-2 Urine Specific [place] February 13, 2025 12:30pm 1.025 1.005-1.02 5 Urine Squamous Epitheli al Cells February 13, 2025 12:30pm RARE #/LPF NONE/RARE Urine Urobilin ogen February 13, 2025 12:30pm 0.2 EU/dL 0.2-1.0 Urine WBC February 13, 2025 12:30pm 50-75 #/HPF Abnormal (applies to non-numeric results) NONE SEEN Vital Signs Vital Reading Result Reference Range Collection Date/Time Height 70 [in_i] February 20, 2025 11:37am Weight 89.01 kg February 20, 2025 11:37am Heart Rate 75 /min 60-100 February 20, 2025 11:37am Respiratory rate 18 /min 12-24 January 312024 11:37am Oxygen saturation by Pulse oximetry 97 % 95-100 February 20, 2025 11:37am BP Systolic 138 mm[Hg] 100-140 February 20, 2025 11:37am BP Diastolic 78 mm[Hg] 60-100 February 20, 2025 11:37am BMI (Body Mass Index) 28.1 kg/m2 2024 11:37am Advance Directives Advance Directive Response Recorded Date/ Time Advance Directives No April 1:23pm Insurance Providers Guarantor Vasyl Broussard Address [address] [place] [phone] Contact Info. Home Phone: Payer Policy Id Subscriber's Name Subscriber Id Effectiv e Date Expiration Date [employer] DUANE DEGROOT [id number] Vasyl Broussard [id number] Encounters Encounter Location(s) Arrival/Admit Date Discharge/Depart Date Provider(s) Non-patient / Non-visit -[facility] February 13, 2025 10:59am Theo Thakkar MD Departed Physician/Prov ider Office Visit -[facility] February 20, 2025 11:31am February 20, 2025 11:55am Theo Thakkar MD Recent Diagnosis Onset Date Admit Date Anemia of renal disease Unknown Septembe r 2024 11:31am CKD (chronic kidney disease) stage 3, GFR 30-59 ml/min Unknown February 20, 2025 11:31am Hypertensive chronic kidney disease with stage 1 through stage 4 chronic ki Unknown February 20 11:31am Microscopic hematuria Unknown February 20, 2025 11:31am Secondary hyperparathyroidism Unknown Se ptember 2024 11:31am Assessments Diagnosis Onset Date Resolution Status Admit Date Anemia of renal disease acute S eptember 2024 11:31am CKD (chronic kidney disease) stage 3, GFR 30-59 ml/min acute Septem tawnya 2024 11:31am Hypertensive chronic kidney disease with stage 1 through stage 4 chronic ki acute January 11:31am Microscopic hematuria acute Sep tember 2024 11:31am Secondary hyperparathyroidism acute February 20, 2025 11:31am Plan of Treatment Author Theo Thakkar [facility] Authored February 20, 2025 8:34am He has a longstanding hypertension and atherosclerotic disease including CAD and PAD. 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 His baseline serum creatinine is 1.7 mg/dL. I discussed with him the importance of good HTN control to slow down the progression of CKD. His renal ultrasound showed left renal cysts and nephrolithiasis but no evidence of obstruction. Blood pressure is controlled and he appears to be euvolemic. Continue current dose of the antihypertensive medications. Advised him to monitor blood pressure at home and call office if stays above 140 over 90 mmHg. Hemoglobin is within the goal but has low iron. I have advised him to take oral Iron every other day. He has a second hyperparathyroidism due to the CKD but his calcium phosphorus and vitamin D are within the goal. Continue oral vitamin D. He has a prostate cancer and follows with the urology for surveillance. Future Tests Future scheduled test information is unavailable Pending Tests Test Name Ordered Date Scheduled Date Renal Function Panel February 20, 2025 11:48a m 6 Months Future Visits Future appointment information is unavailable Referrals to Other Providers Referral information is unavailable Future Procedures Procedure Name Ordered Date Scheduled Date Dipstick and Microscopic February 20, 2025 11 :48am 6 Months Hemogram CBC Without Diff February 20, 2025 1 1:48am 6 Months Iron and TIBC Profile February 20, 2025 11:48 am 6 Months Ferritin February 20, 2025 11:48am 6 M onths Magnesium February 20, 2025 11:48am 6 M onths Protein Creat Ratio Ur Random February 20 25 11:48am 6 Months Parathyroid Hormone Intact February 20, 2025 11:48am 6 Months Uric Acid February 20, 2025 11:48am 6 M onths Vitamin D 25 Hydroxy Total February 20, 2025 11:48am 6 Months Future Medications Future medication information is unavailable Patient Instructions Patient instructions are unavailable
--- OUTSIDE RECORDS SUMMARY | 2025-03-01 | XMS_ITS | Encounter Summary ---
Author Organization [facility] Address [address] [place] [address] Care Team Providers Care Batch Operator Name Role Phone Shaikh AUBREE Storm Primary Care Provider [phone] Encounter Details Date Type Department Care Team (Latest Contact Info) Description 03/01/2025 - 03/01/2025 11:59 PM EDT Hospital Encounter [facility] Radiology External Films [address] [place] [phone] Arrived Discharge Disposition: Home or Self Care () Social History Tobacco Use Types Packs/Day Years Used Date Smoking Tobacco: Every Day Cigarettes 0.3 60 Passive Smoke Exposure: Past Smokeless Tobacco: Never Alcohol Use Standard Drinks/Week Comments Not Currently 0 (1 standard drink = 0.6 oz pur e alcohol) Have not drank for years [facility] Utilities Answer Date Recorded In the past 12 months has [employer], gas, oil, or water [employer] threatened to shut off services in your [...] place to sleep or slept in a usp (including now)? No 01/12/2024 Hunger Vital Sign [...] Heterosexual or Straight 07/2023 10:58 AM EDT documented as of this encounter Medications at Time of Discharge amLODIPine (Norvasc) 10 mg tablet Take 1 tablet by mouth in the morning. 03/22/2021 aspirin 81 mg capsuleIndication s:PAD (peripheral artery disease) Take 81 mg by mouth in the morning. Restart on Thursday11/22/2023 30 capsule 11/18/2023 baclofen (Lioresal) 10 mg tablet Take 10 mg by mouth at bedtime. 08/17/2023 clopidogrel (Plavix) 75 mg tablet Take 1 tablet by mouth in the morning. 07/09/2024 ergocalciferol (Vitamin D-2) 1.25 MG (69477 Units) capsule Take 1,250 mcg by mouth 1 (one) time per week. HYDROcodone-aceta minophen ([place]) 7.5-325 mg tablet 1 tablet. 02/06/2023 nitroglycerin (Nitrostat) 0.4 mg SL tablet Refills(s) 0 09/18/2023 omeprazole (PriLOSEC) [address] capsule TAKE 1 CAPSULE BY MOUTH IN THE MORNING BEFORE MEALS DO NOT CRUSH OR CHEW 11/26/2023 pravastatin (Pravachol) 10 mg tablet Take 10 mg by mouth at bedtime. 06/27/2023 varenicline (Chantix) 0.5 mg tablet Take 0.5 mg by mouth in the morning and at bedtime. Take with full glass of water. documented as of this encounter Plan of Treatment Upcoming Encounters Date Type Department Care Team (Late st Contact Info) Description 03/15/2025 12:40 PM EDT Follow-Up Karon He [facility] [address] [place] [address] Vasile Watson MD [address] [facility] [place] [address] documented as of this encounter Procedures Procedure Name Priority Date/Time Associated Diagnosis Comments CT TRANSFER OF OUTSIDE FILMS Routine 03/01/2025 12:00 AM EDT documented in this encounter Results * CT transfer of outside films (03/01/2025 12:00 AM EDT) Narrative IMAGING - 03/01/2025 11:41 AM EDT This order has been auto-finalized and does not contain a result. Vasile Watson MD IMG CT PROCEDURES Final Resul t IMAGING documented in this encounter Visit Diagnoses Not on filedocumented in this encounter Care Teams Batch Operator Relationship Specialty Start Date End Date Shaikh Storm MD PCP - General Family Medicine 09/02/23 documented as of this encounter
--- OUTSIDE RECORDS SUMMARY | 2025-03-02 13:19 | XMS_ITS | Encounter Summary ---
Author Organization [facility] Address [address] [place] [address] [place] [address] Care Team Providers Care Clinical Orthoptist Name Role Phone Brian Avalos MD Primary Care Provider [phone] Kayley Ward PRODUCTION METAL SPRAYER Unavailable [phone] Encounter Details Date Type Department Care Team (Late st Contact Info) Description 08/24/2024 Orders Only [facility] [address] [facility] [place] [address] Cherie William NP [address] [place] [address] Social History Tobacco Use Types [...] How often do you attend mandaeism or taoist serv ices? Patient declined 01/20/2024 [...] documented as of this encounter Care Teams Clinical Orthoptist Relationship Specialty Start Date End Date Brian Avalos MD PCP - General Family Medicine 01/12/24 Kayley Ward NP Nurse Practitioner Family Medicine 01/12/24 documented as of this encounter
--- OUTSIDE RECORDS SUMMARY | 2025-03-02 13:19 | XMS_ITS | Encounter Summary ---
Author Organization [facility] Address [address] [place] [address] [place] [address] Care Team Providers Care Mine Engineering Manager Name Role Phone Brian Avalos MD Primary Care Provider [phone] Kayley Ward SENIOR NET WEB DEVELOPER Unavailable [phone] Reason for Visit * Reason Comments Med Refill Encounter Details Date Type Department Care Team (Late st Contact Info) Description 12/09/2024 Refill [facility] [address] [place] [address] Qian Son NP [address] [place] [address] Primary hypertension Social History Tobacco Use Types [...] declined 01/20/2024 How often do you attend anabaptist or tenriism serv ices? Patient declined 01/20/2024 Do you belong to any clubs o r organizations such as anabaptist groups, unions, fraternal or athletic groups, or [...] any time in the past 12 m [facility], were you homeless or living [...] documented as of this encounter Care Teams Mine Engineering Manager Relationship Specialty Start Date End Date Brian Avalos MD PCP - General Family Medicine 01/12/24 Kayley Ward NP Nurse Practitioner Family Medicine 01/12/24 documented as of this encounter
--- OUTSIDE RECORDS SUMMARY | 2025-03-02 13:19 | XMS_ITS | Encounter Summary ---
Author Organization [facility] Address [address] [place] [address] Care Team Providers Care Class B Truck Driver Name Role Phone Brian Avalos MD Primary Care Provider [phone] Kayley Ward TRANSFORMER BUILDER Unavailable [phone] Encounter Details Date Type Department Care Team (Late st Contact Info) Description 08/25/2024 Orders Only [facility] [address] [facility] [place] [address] Cherie William NP [address] [place] [address] Social History Tobacco Use Types [...] declined 01/20/2024 How often do you attend buddhism or jainism serv ices? Patient declined 01/20/2024 Do you belong to any clubs o r organizations such as buddhism groups, unions, fraternal or athletic groups, or [...] any time in the past 12 m [facility], were you homeless or living in a half-way (including now)? No 01/20/2024 Sex and Gender [...] documented as of this encounter Care Teams Class B Truck Driver Relationship Specialty Start Date End Date Brian Avalos MD PCP - General Family Medicine 01/12/24 Kayley Ward NP Nurse Practitioner Family Medicine 01/12/24 documented as of this encounter
--- OUTSIDE RECORDS SUMMARY | 2025-03-02 13:19 | XMS_ITS | Encounter Summary ---
Author Organization [facility] Address [address] [place] [address] Care Team Providers Care Weatherization Operations Manager Name Role Phone Brian Avalos MD Primary Care Provider [phone] Kayley Ward ART CONSULTANT Unavailable [phone] Encounter Details Date Type Department Care Team (Late st Contact Info) Description 09/05/2024 Orders Only [facility] [address] [place] [address] Claire James MD [address] [place] [address] Social History Tobacco Use Types Packs/Day Years [...] time in the past [address] [facility], were you homeless or living in [...] documented as of this encounter Care Teams Weatherization Operations Manager Relationship Specialty Start Date End Date Brian Avalos MD PCP - General Family Medicine 01/12/24 Kayley Ward NP Nurse Practitioner Family Medicine 01/12/24 documented as of this encounter
--- OUTSIDE RECORDS SUMMARY | 2025-03-02 13:19 | XMS_ITS | Encounter Summary ---
Author Organization [facility] Address [address] [place] [address] Phone Care Team Providers Care Engravings Polisher Name Role Phone Shaikh AUBREE Storm Primary Care Provider [phone] Encounter Details Date Type Department Care Team (Late st Contact Info) Description 10/15/2023 Scanned Document [facility] [address] [place] [phone] Scanning, Generic Provider Social History Tobacco Use [...] 08/30/2025 10:00 AM EDT Office Visit [facility] [address] [facility] [address] [place] [phone] Chaim Grayson DO [address] [facility] [address] [place] [address] Scheduled Orders Name Type Priority Associated Diagnoses Orde r Schedule Ultrasound- OnBase Scan Imaging O rdered: 10/15/2023 documented as of this encounter Visit Diagnoses Not on filedocumented in this encounter Additional Health Concerns Assessment Noted Time A fall risk assessment has been complete d for the patient 08/18/2023 11:52 AM EDT documented as of this encounter Care Teams Engravings Polisher Relationship Specialty Start Date End Date Shaikh Storm MD PCP - General Internal Medicine 06/04/23 documented as of this encounter
--- OUTSIDE RECORDS SUMMARY | 2025-03-02 13:19 | XMS_ITS | Clinical Summary ---
Author Organization [facility] Address [address] [place] [address] Care Team Providers Care Enamel Machine Operator Name Role Phone Brian Avalos MD Primary Care Provider [phone] Kayley Ward MARBLE WORKER Unavailable [phone] Allergies Active Allergy Reactions Criticality Noted Date Comments Ezetimibe GI intolerance 04/27/2023 Statins Other Medium 03/30/2023 Muscle/Joint Pain Other Reaction(s): Other Muscle/Joint Pain Other Reaction(s): lipitor Medications pravastatin (Pravachol) 40 MG tablet Take 40 mg by mouth at bedtime. Active ergocalciferol (Vitamin D-2) 1.25 MG (26879 UT) capsule Take 1.25 mg by mouth [...] for Lumbar Stenosis. Recently reduced dosage of [place]. Feels symptoms are well controlled. Continue current [...] joint 09/02/2023 Coronary artery disease invo lving nulato coronary artery of nulato heart without angina pectoris 06/29/2023 Assessment & [...] hips on prolonged ambulation. Patient is on [place] for chronic pain. He was evaluated by NS at [facility] and it seemed like they were concerned about possible opioid induced hyperalgesia. Patient has been trying to wean himself off of [place] but if he does not use it [...] foraminal stenosis Will refer to NS at [facility]. CVA (cerebral vascular accident) 06/04/2023 Assessment & Plan (06/29/2023 6:57 PM EST): Prior hx of ischemic CVA. No residual deficit. On ASA, statin. Carotid artery disease 06/04/2023 PAD (peripheral artery disease) 06/04/2023 Assessment & Plan (09/28/2023 9:43 AM EDT): On ASA, Plavix and statin. Left leg revascularization 2022 at [facility]. Leg pain has improved and is doing well Heart disease 06/04/2023 BPH (benign prostatic hyperplasia) 06/04/2023 History of ND (myocardial infarction) 06/04/2023 HLD (hyperlipidemia) 04/27/2023 Assessment [...] Encounters Date Type Department Care Team Description 02/21/2025 Clinisync Result Encounter NOMS External Department Unsolicited Provider, Generic External Data 02/13/2025 Clinisync Result Encounter NOMS External Department Unsolicited Provider, Generic External Data 01/12/2025 Clinisync Result Encounter [facility]OMS External Department Unsolicited Provider, Generic External Data 12/09/2024 Refill [facility] [address] [facility] [facility] [place] [address] Qian Son NP Primary hypertension from Last [...] How often do you attend quaker or hindu serv ices? Patient declined 01/20/2024 Do you [...] any time in the past 12 m [facility], were you homeless or living in [...] Date Last Done Comments Pneumococcal Vaccine: 65+ Years (1 of 2 - PCV) 965 Influenza Vaccine (#1) 2025 Procedures Procedure Name Priority Date/Time Associated Diagnosis Comments CT LUMBAR SPINE WO IV CONTRAST 02/21/2025 11:31 AM EDT [facility] URINE T PROTEIN CREAT RATIO Routine [...] EDT from Last 3 Months Results * CT lumbar spine wo IV contrast (02/21/2025 11:31 AM EDT) Anatomical Region Laterality Modality Spine, L-spine Computed Tomogra phy 02/21/2025 11:3 1 AM EDT Narrative 02/21/2025 11:34 [place] [address] CT Scan Report Signed Patient: YESENIA BROUSSARD MR#: [id number] : 1945 Acct:[id number] Age/Sex: 79 / M ADM Date: 02/21/25 Loc: CT Attending Dr: Loco Farias NP Ordering Physician: Loco Farias NP Date of Service: 02/21/25 Procedure(s): CT lumbar spine wo con Accession Number(s): [id number] cc: Shaikh Joanna Storm [address] [address] Patient Name: YESENIA BROUSSARD MRN: [facility]:[id number] date: 1945 Sex: M Assigned Patient Location: CT Current Patient Location: CT Accession/Order Number: [id number] Exam Date: 02/21/2025 10:02 Report Date: 02/21/2025 11:31 At the request of: LOCO FARIAS NP Procedure: CT lumbar spine wo con CT LUMBAR SPINE WITHOUT CONTRAST WITH 3-D RECONSTRUCTIONS COMPARISON: MRI 02/20/2023 CLINICAL DATA: Chronic low back pain radiating to the right buttock. Previous surgery. Spiral axial unenhanced images were obtained through the lumbar spine. Sagittal, coronal and 3-D volume rendered reconstructions were reviewed. This CT exam was performed using one or more following dose reduction techniques: Automated exposure control, adjustment of the mA and/or kV according to patient size, or use of iterative reconstruction technique. There is slight dextroscoliotic curvature. Structures are osteopenic. No acute compression fractures are identified. There is still slight anterolisthesis of L3 on L4 and L4 and L5. There is mild disc space narrowing at L3-4, L4-5 and at the lumbosacral junction. Mild endplate spurring and moderate bilateral facet hypertrophy are present. There is a suspected right hemilaminotomy defect at L4 and possibly on the left at L5. Degenerative changes are seen SI joints, right greater than left. At L2-3, there is minor disco-osteophytic bulging toward the neural foramen where mild inferior foraminal encroachment is noted. At L3-4, there is disco-osteophytic bulging, greater through the neural foramen. There is mild thickening of ligamentum flavum along with facet hypertrophy. There is still at least moderate thecal sac effacement and moderate to severe narrowing of the neural foramen, right worse than left. At L4-5, disco-osteophytic bulging is present. There is ligamentous as well as facet hypertrophy. There is mild to moderate thecal sac effacement. There is moderate to severe bilateral foraminal encroachment, greater on the left. At the lumbosacral junction, there is disco-osteophytic bulging, greater at the neural foramen. There is no significant thecal sac effacement. There is moderate left and severe right foraminal impingement. No paraspinal soft tissue abnormalities are present. There is no contributory finding at the lower imaged lungs. There is moderate atherosclerotic disease as well as an ectatic aorta with maximum AP diameter of 3.1 cm. There are small cortical hypodensities at both kidneys that may be cysts. There is an exophytic slightly hyperdense nodule at the inferior pole of the left kidney that might be a hemorrhagic cyst. Sigmoid diverticular disease is visualized. There is also suggestion of a sigmoid anastomosis. Urinary bladder is poorly distended and the wall appears thickened. No ascites is seen. CT/CT lumbar spine wo con IMPRESSION: SLIGHT DEXTROSCOLIOTIC CURVATURE, POSTOPERATIVE AND DISCOVERTEBRAL DEGENERATIVE CHANGES WITH ASSOCIATED STENOSIS, DISCUSSED ABOVE. Impression dictated by: Lorelei Waite M.D. 02/21/2025 11:31 AM Dictation Location: [place] [address] Electronically authenticated by: [id number] Y Date: 02/21/2025 11:31 Dictated By: Lorelei Waite M.D. Signed By: 02/21/25 1134 DD/ 1131 TD/TT: Transfer Clerk: Procedure Note Radiology, Radiologist, MD - 02/21/[address] [address] [address] Scan Report Signed Patient: YESENIA BROUSSARD R#: [id number] : 1945cct:[id number] Age/Sex: 79 / MADM Date: 02/21/25 Loc: CT Attending Dr: Loco Farias NP Ordering Physician: Loco Farias NP Date of Service: 02/21/25 Procedure(s): CT lumbar spine wo con Accession Number(s): [id number] cc: Shaikh Joanna Storm The [address] [address] Patient Name: YESENIA BROUSSARD MRN: [facility]:[id number] date: 1945 Sex: M Assigned Patient Location: CT Current Patient Location: CT Accession/Order Number: [id number] Exam Date: 02/21/2025 10:02 Report Date: 02/21/2025 11:31 At the request of: LOCO FARIAS NP Procedure: CT lumbar spine wo con CT LUMBAR SPINE WITHOUT CONTRAST WITH 3-D RECONSTRUCTIONS COMPARISON: MRI 02/20/2023 CLINICAL DATA: Chronic low back pain radiating to the right buttock.Previous surgery. Spiral axial unenhanced images were obtained through the lumbar spine. Sagittal, coronal and 3-D volume rendered reconstructions were reviewed.This CT exam was performed using one or more following dose reductiontechniques: Automated exposure control, adjustment of the mA and/or kV according to patient size, or use of iterative reconstruction technique. There is slight dextroscoliotic curvature. Structures are osteopenic. No acute compression fractures are identified. There is still slight anterolisthesis of L3 on L4 and L4 and L5. There is mild disc spacenarrowing at L3-4, L4-5 and at the lumbosacral junction. Mild endplate spurring and moderate bilateral facet hypertrophy are present. There is a suspectedright hemilaminotomy defect at L4 and possibly on the left at L5. Degenerative changes are seen SI joints, right greater than left. At L2-3, there is minor disco-osteophytic bulging toward the neuralforamen where mild inferior foraminal encroachment is noted. At L3-4, there is disco-osteophytic bulging, greater through the neural foramen. There is mild thickening of ligamentum flavum along with facet hypertrophy. There is still at least moderate thecal sac effacement and moderate to severe narrowing of the neural foramen, right worse than left. At L4-5, disco-osteophytic bulging is present. There is ligamentous aswell as facet hypertrophy. There is mild to moderate thecal sac effacement.There is moderate to severe bilateral foraminal encroachment, greater on theleft. At the lumbosacral junction, there is disco-osteophytic bulging, greaterat the neural foramen. There is no significant thecal sac effacement. Thereis moderate left and severe right foraminal impingement. No paraspinal soft tissue abnormalities are present. There is nocontributory finding at the lower imaged lungs. There is moderate atheroscleroticdisease as well as an ectatic aorta with maximum AP diameter of 3.1 cm. There are small cortical hypodensities at both kidneys that may be cysts. There isan exophytic slightly hyperdense nodule at the inferior pole of the leftkidney that might be a hemorrhagic cyst. Sigmoid diverticular disease isvisualized. There is also suggestion of a sigmoid anastomosis. Urinary bladder ispoorly distended and the wall appears thickened. No ascites is seen. CT/CT lumbar spine wo con IMPRESSION: SLIGHT DEXTROSCOLIOTIC CURVATURE, POSTOPERATIVE AND DISCOVERTEBRAL DEGENERATIVE CHANGES WITH ASSOCIATED STENOSIS, DISCUSSED ABOVE. Impression dictated by: Lorelei Waite M.D. 02/21/2025 11:31 AM Dictation Location: [place] [address] Electronically authenticated by: [id number] Y Date: 1:31 Dictated By: Lorelei Waite M.D. Signed By:02/21/25 1134 DD/ 1131 TD/TT: Transfer Clerk: Generic External Data Provider IMG CT PROCEDURES Final Result * (ABNORMAL) [facility] URINE T PROTEIN CREAT RATIO (02/13/2025 12:30 PM EDT) Pathologist [facility] TOTAL PROTEIN URINE RANDOM 147.8(H) <=11.9 mg/dL [facility] CREATININE URINE RANDOM 214.61 20.00 - 300.00 mg/dL [facility] PROTEIN CREATININE RATIO URINE 0.69 TBH 02/13/2025 12:3 0 PM EDT 02/13/2025 12:45 PM EDT Narrative CLINISYNC - 02/13/2025 2:58 PM EDT Generic External Data Provider DOLORES F inatyler Result CLINJESSICA TB * (ABNORMAL) [facility] URINALYSIS, WITH MICROSCOPIC [...] CLINISYNC F inal Result Performing Organization Address [facility]/ZIP Co de Phone Number DOLORES [facility] * [facility] VITAMIN D 25 [place] (02/13/2025 10:59 AM EDT) [facility] VITAMIN D 43.3 ng/mL [facility] Comment: <20 ng/mL Vit D deficient 20-<30 ng/mL Vit D insufficient 30-100 ng/mL Vit D sufficient >100 ng/mL Potential Toxicity 02/13/2025 10:5 9 AM EDT 02/13/2025 11:03 AM EDT Narrative CLINISYNC - 02/13/2025 1:10 PM EDT Generic External Data Provider [facility]NC F [facility]al [facility] METRO IRON AND TIBC (02/13/2025 10:59 AM EDT) [facility] TB IRON 80.0 65.0 - 175.0 ug/dL TBH TBH TOTAL IRON BINDING CAPACITY 354.0 250.0 - 450.0 ug/dL TBH TBH PERCENT IRON SATURATION 22.6 % [facility] 02/13/2025 10:5 9 AM EDT 02/13/2025 11:03 AM EDT Narrative CLINISYNC - 02/13/2025 12:10 PM EDT Generic External Data Provider CLINISYNC F inal Result Performing Organization Address City/[facility]/ZIP Co de Phone Number CLINISYNC TB * (ABNORMAL) [facility] PTH, INTRAOPERATIVE (02/13/2025 10:59 AM EDT) [facility] PTH, INTACT 81(A) 15 - 65 pg/mL [facility]H Comment: Performed at: [address] [id number] Optometric Coordinator: Rojelio Nelson PhD, Phone: [phone] 02/13/2025 10:5 9 AM EDT 02/13/2025 11:03 AM EDT Narrative CLINISYNC - 02/14/2025 10:09 AM EDT Generic External Data Provider CLINISYNC F inal Result Performing Organization Address City/[facility] Co de Phone Number CLINISYNC TBH * (ABNORMAL) [facility] CBC WITH PLATELET NO DIFFERENTIAL (02/13/2025 10:59 AM EDT) [facility] TB WBC 8.0 4.0 - 11.0 10 [...] CLINISYNC F inal Result Performing Organization Address [facility] Co de Phone Number CLINISYNC TB * ALL URIC ACID (02/13/2025 10:59 AM EDT) URIC ACID 6.6 3.5 - 7.2 mg/dL TBH 02/13/2025 10:5 9 AM EDT 02/13/2025 11:03 AM EDT Narrative CLINISYNC - 02/13/2025 11:39 AM EDT Generic External Data Provider CLINISYNC F inal Result Performing Organization Address City/[facility] Co de Phone Number CLINISYNC TB * [...] 0.70 - 1.30 mg/dL [facility] TBH EGFR-AF GUATEMALAN 41(L) >=60 mL/min/1.7 3m 2 TBH TBH EGFR-NON AF GUATEMALAN 34(L) >=60 mL/min/1.7 3m 2 TBH BUN CREATININE RATIO 14.5 TBH CALCIUM 9.2 8.5 - 10.1 mg/dL [facility] PHOSPHORUS 3.9 2.6 - 4.7 mg/dL [facility]H ALBUMIN LEVEL 3.8 3.4 - 5.0 g/dL [facility] 02/13/2025 10:5 9 AM EDT 02/13/2025 11:03 AM EDT Narrative CLINISYNC - 02/13/2025 11:39 AM EDT Generic External Data Provider CLINISYNC F inal Result CLINISYNC [facility] * ALL MAGNESIUM (02/13/2025 10:59 AM EDT) Pathologist [facility] MAGNESIUM 2.0 1.8 - 2.4 mg/dL TB 02/13/2025 10:5 9 AM EDT 02/13/2025 11:03 AM EDT Narrative CLINISYNC - 02/13/2025 11:39 AM EDT Generic External Data Provider CLINISYNC F inal Result CLINISYNC [facility] * [facility] PSA SERPL-[facility] (01/12/2025 11:43 AM EDT) [facility] PSA SERPL-[facility] 1.56 <2.60 ng/mL [facility] Comment:Total PSA test metho dology used is the Electrochemiluminescence Immunoassay by [employer] [facility] [employer]. Total PSA values by differing methodologies cannot be interchanged. 01/12/2025 11:4 3 AM EDT 01/12/2025 2:35 PM EDT Narrative DOLORES - 01/12/2025 10:52 PM EDT Specimen Type: BLOOD SPECIMEN Ordering Facility: [facility] Address: [address] [place], [place] [id number] Original Ordering Provider: Hyun NAZARIO us Generic External Data Provider DOLORES F inal Result CLINISYNC [facility] [address] [facility] [address] [place] [phone] from Last 3 Months Insurance [employer] Care Teams Enamel Machine Operator Relationship Specialty Start Date End Date Brian Avalos MD PCP - General Family Medicine 01/12/24 Kayley Ward NP Nurse Practitioner Family Medicine 01/12/24
--- OUTSIDE RECORDS SUMMARY | 2025-03-02 13:19 | XMS_ITS | Encounter Summary ---
Author Organization [facility] Address [address] [place] [address] Phone Care Team Providers Care Loan Counselor Name Role Phone Shaikh AUBREE Storm Primary Care Provider Encounter Details Date Type Department Care Team (Late st Contact Info) Description 08/10/2024 Scanned Document [facility] [address] [place] [id number] Scanning, Generic Provider Social History Tobacco Use [...] EDT Office Visit [facility] [address] [facility] [address] [place] [address] Chaim Grayson DO [address] [facility] [address] [place] [address] documented as of this encounter Visit Diagnoses Not on filedocumented in this encounter Additional Health Concerns Assessment Noted Time A fall risk assessment has been complete d for the patient 08/18/2023 11:52 AM EDT documented as of this encounter Care Teams Loan Counselor Relationship Specialty Start Date End Date Shaikh Storm MD PCP - General Internal Medicine 06/04/23 documented as of this encounter
--- OUTSIDE RECORDS SUMMARY | 2025-03-02 13:20 | XMS_ITS | Encounter Summary ---
Author Organization [facility] Address [address] [place] [address] Care Team Providers Care Platen Builder Up Name Role Phone Shaikh AUBREE Storm Primary Care Provider Shaikh AUBREE Storm Primary Care Provider Brian Avalos MD Primary Care Provider Kayley Ward NP Unavailable [phone] Encounter Details Date Type Department Care Team (Late st Contact Info) Description 05/21/2023 External Result Encounter [facility] External Department Unsolicited Shaikh Storm MD [address] [place] [address] Social History Tobacco Use Types Packs/Day Years [...] 11:42 AM EST) 05/21/2023 11:[address] [facility] - 05/22/2023 11:09 AM [place] [id number] Electrocardiograph Report Signed Patient: Vasyl Broussard MR#: [id number] : 1945 Acct:[id number] Age/Sex: 77 / M ADM Date: 05/21/23 [...] undetermined Abnormal ECG Confirmed by DEANN MAK [facility] ([id number]) on 05/21/2023 5:04:18 PM Referred By: Electronically Signed By:BARBARA ZACARIAS MD [facility] Transcribed By: MUS Signed By Chaim Zacarias MD 05/21/23 1704 Procedure Note Gabrielle Zacarias MD - 05/22/2023 [place] [id number] Electrocardiograph Report Signed Patient: Vasyl Broussard RMR#: [id number] : 6Acct:[id number] Age/Sex: 77 / MADM Date: 05/21/23 Loc: [...] , age undetermined Abnormal ECG Confirmed by BARBARA ZACARIAS MD, FACC ([id number]) on 05/21/2023 5:04:18 PM Referred By: Electronically Signed By:BARBARA ZACARIAS MD, FACC Transcribed By: MUS Signed By Chaim Zacarias MD 05/21/23 7863 us Shaikh Dotty MAK ECG ORDERABLES Final Result COUNTS INCLUDE 234 BEDS AT THE [facility] [address] [place] [address], documented in this encounter Visit Diagnoses Not on filedocumented in this encounter Care Teams Platen Builder Up Relationship Specialty Start Date End Date Shaikh Storm MD PCP - General Internal Medicine 06/01/22 09/27/23 Shaikh Storm MD PCP - General Internal Medicine 09/28/23 01/11/24 Brian Avalos MD PCP - General Family Medicine 01/12/24 Kayley Ward NP Nurse Practitioner Family Medicine 01/12/24 documented as of this encounter
--- OUTSIDE RECORDS SUMMARY | 2025-03-02 13:20 | XMS_ITS | Encounter Summary ---
Author Organization [facility] Address [address] [place] [address] Phone Care Team Providers Care Hospice Superintendent Name Role Phone Shaikh AUBREE Storm Primary Care Provider [phone] Encounter Details Date Type Department Care Team (Late st Contact Info) Description 05/27/2023 Scanned Document [facility] [address] [place] [phone] Scanning, Generic Provider Social History Tobacco Use [...] Description 08/30/2025 10:00 AM EDT Office Visit [facility] [address] [facility] [address] [place] [address] Chaim Grayson DO [address] [facility] [address] [place], [place] [id number] documented as of this encounter Visit Diagnoses Not on filedocumented in this encounter Care Teams Hospice Superintendent Relationship Specialty Start Date End Date Shaikh Storm MD PCP - General Internal Medicine 06/04/23 documented as of this encounter
--- OUTSIDE RECORDS SUMMARY | 2025-03-02 13:20 | XMS_ITS | Encounter Summary ---
Author Organization [facility] Address [address] [place] [address] Care Team Providers Care Chauffeur Name Role Phone Brian Avalos MD Primary Care Provider Kayley Ward NP Unavailable [phone] Encounter Details Date Type Department Care Team (Late st Contact Info) Description 04/11/2024 Orders Only [facility] [address] [facility] [address] Kayley Ward NP Social History Tobacco Use [...] declined 01/20/2024 How often do you attend muslim or faith serv ices? Patient declined 01/20/2024 Do you belong to any clubs o r organizations such as muslim groups, unions, fraternal or athletic groups, or [...] any time in the past 12 m [facility], were you homeless or living [...] LABS (04/11/2024 3:25 PM EST) Kayley Ward VACUUM CLOSING MACHINE OPERATOR LAB CHG PERFORMABLES Fin al Result * SCANNED LABS (04/11/2024 9:23 AM EST) Kayley Ward VACUUM CLOSING MACHINE OPERATOR LAB CHG PERFORMABLES Fin al Result documented in this encounter Visit Diagnoses Not on filedocumented in this encounter Additional Health Concerns Assessment Noted Time PHQ-9 Depression Total Score: 5 12/08/19 24 11:00 AM EDT documented as of this encounter Care Teams Chauffeur Relationship Specialty Start Date End Date Brian Avalos MD PCP - General Family Medicine 01/12/24 Kayley Ward NP Nurse Practitioner Family Medicine 01/12/24 documented as of this encounter
--- OUTSIDE RECORDS SUMMARY | 2025-03-02 13:20 | XMS_ITS | Encounter Summary ---
Author Organization [facility] Address [address] [place] [address] [place] [address] Care Team Providers Care Director Construction Services Name Role Phone Shaikh AUBREE Storm Primary Care Provider [phone] Brian Avalos MD Primary Care Provider [phone] Kayley Ward NP Unavailable [phone] Encounter Details Date Type Department Care Team (Late st Contact Info) Description 10/02/2023 Orders Only [facility] [address] [place] [address] Shaikh Storm MD [address] [place] [address] Social History Tobacco Use Types Packs/Day Years [...] documented as of this encounter Care Teams Director Construction Services Relationship Specialty Start Date End Date Shaikh Storm MD PCP - General Internal Medicine 09/28/23 01/11/24 Brian Avalos MD PCP - General Family Medicine 01/12/24 Kayley Ward NP Nurse Practitioner Family Medicine 01/12/24 documented as of this encounter
--- OUTSIDE RECORDS SUMMARY | 2025-03-02 13:20 | XMS_ITS | Encounter Summary ---
Author Organization [facility] Address [address] [facility] [place] [address] Care Team Providers Care Seed Core Operator Name Role Phone Shaikh AUBREE Storm Primary Care Provider [phone] Shaikh AUBREE Storm Primary Care Provider Brian Avalos MD Primary Care Provider Kayley Ward NP Unavailable [phone] Encounter Details Date Type Department Care Team (Late st Contact Info) Description 05/12/2023 Orders Only [facility] [address] [place] [address] Claire James MD [address] [place] [address] Social History Tobacco Use Types Packs/Day Years [...] on filedocumented in this encounter Care Teams Seed Core Operator Relationship Specialty Start Date End Date Shaikh Storm MD PCP - General Internal Medicine 06/01/22 09/27/23 Shaikh Storm MD PCP - General Internal Medicine 09/28/23 01/11/24 Brian Avalos MD PCP - General Family Medicine 01/12/24 Kayley Ward NP Nurse Practitioner Family Medicine 01/12/24 documented as of this encounter
--- OUTSIDE RECORDS SUMMARY | 2025-03-02 13:20 | XMS_ITS | Encounter Summary ---
Author Organization [facility] Address [address] [place] [address] Phone Care Team Providers Care Senior Hr Business Partner Name Role Phone Shaikh AUBREE Storm Primary Care Provider [phone] Encounter Details Date Type Department Care Team (Late st Contact Info) Description 04/16/2023 Scanned Document [facility] [address] [place] [address] Scanning, Generic Provider Social History Tobacco Use [...] Description 08/30/2025 10:00 AM EDT Office Visit [facility] [address] [place] [address] Chaim Grayson DO [address] [place], [place] [id number] Scheduled Orders Name Type Priority Associated Diagnoses Orde r Schedule ULTRASOUND - ONBASE SCAN Imaging Ordered: 04/16/2023 documented as of this encounter Visit Diagnoses Not on filedocumented in this encounter Care Teams Senior Hr Business Partner Relationship Specialty Start Date End Date Shaikh Storm MD PCP - General Internal Medicine 06/04/23 documented as of this encounter
--- OUTSIDE RECORDS SUMMARY | 2025-03-02 13:20 | XMS_ITS | Clinical Summary ---
Author Organization [facility] Address [id number] [address] [place] [address] Care Team Providers Care Customer Development Manager Name Role Phone Unavailable Primary Care Provider [...]
--- OUTSIDE RECORDS SUMMARY | 2025-03-02 13:20 | XMS_ITS | Encounter Summary ---
Author Organization [facility] Address [address] [place] [address] [place] [address] Care Team Providers Care Narrow Gauge Brakeman Name Role Phone Brian Avalos MD Primary Care Provider [phone] Kayley Ward MONITORING COORDINATOR Unavailable [phone] Encounter Details Date Type Department Care Team (Late st Contact Info) Description 08/09/2024 Orders Only [facility] [address] [place] [address] Claire James MD [address] [place] [address] Social History Tobacco Use Types Packs/Day Years [...] How often do you attend caodaism or yazidi serv ices? Patient declined 01/20/2024 [...] time in the past 12 m [facility], were you homeless or living in a [...] documented as of this encounter Care Teams Narrow Gauge Brakeman Relationship Specialty Start Date End Date Brian Avalos MD PCP - General Family Medicine 01/12/24 Kayley Ward NP Nurse Practitioner Family Medicine 01/12/24 documented as of this encounter
--- OUTSIDE RECORDS SUMMARY | 2025-03-02 13:20 | XMS_ITS | Encounter Summary ---
Author Organization [facility] Address [address] [facility] [place] [address] Care Team Providers Care Terminal Gauger Name Role Phone Shaikh AUBREE Storm Primary Care Provider [phone] Brian Avalos MD Primary Care Provider [phone] Kayley Ward NP Unavailable [phone] Encounter Details Date Type Department Care Team (Late st Contact Info) Description 10/01/2023 Orders Only [facility] [address] [place] [address] Shaikh Storm MD [address] [place] [address] Social History Tobacco Use Types Packs/Day Years [...] documented as of this encounter Care Teams Terminal Gauger Relationship Specialty Start Date End Date Shaikh Storm MD PCP - General Internal Medicine 09/28/23 01/11/24 Brian Avalos MD PCP - General Family Medicine 01/12/24 Kayley Ward NP Nurse Practitioner Family Medicine 01/12/24 documented as of this encounter
--- OUTSIDE RECORDS SUMMARY | 2025-03-02 13:20 | XMS_ITS | Clinical Summary ---
Author Organization [facility] Address [address] [place] [address] Phone Care Team Providers Care Terrazzo Mechanic Name Role Phone Shaikh AUBREE Storm Primary Care Provider [phone] Allergies Active Allergy Reactions Criticality Noted Date Comments Ezetimibe GI intolerance,Nausea/vo miting High 04/27/2023 Iyjaowa-Ujn-Mmw Reductase Inhibitors Other Medium 03/30/2023 Muscle/Joint Pain Medications aspirin 81 mg EC tablet Take 1 tablet (81 mg) by mouth once daily. Active ergocalciferol (Vitamin D-2) 1.25 MG (09212 UT) capsule Take 1 capsule (1,250 mcg) by mouth 1 (one) time per week. 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 MPI No ischemia/no infarct TID [...] (08/30/2024 1:10 PM EDT): Right lower extremity SPORTS BROADCASTER/stenting Follows routinely with vascular Denies claudication History of [place] (myocardial infarction) 06/04/2023 CVA (cerebral vascular accident) [...] Description 08/30/2025 10:00 AM EDT Office Visit [facility] [address] [place] [address] Chaim Grayson DO [address] [facility] [address] [place] [address] Health Maintenance Due Date Last Done Comments [...] patient's age to complete this topic Insurance [employer] Care Teams Terrazzo Mechanic Relationship Specialty Start Date End Date Shaikh Storm MD PCP - General Internal Medicine 06/04/23
--- OUTSIDE RECORDS SUMMARY | 2025-03-02 13:20 | XMS_ITS | Encounter Summary ---
Author Organization [facility] Address [address] [place] [address] Phone Care Team Providers Care Speech And Hearing Clinic Director Name Role Phone Shaikh AUBREE Storm Primary Care Provider [phone] Encounter Details Date Type Department Care Team (Late st Contact Info) Description 03/09/2023 Scanned Document [facility] [address] [place] [phone] Scanning, Generic Provider Social History Tobacco Use [...] Description 08/30/2025 10:00 AM EDT Office Visit [facility] [address] [facility] [address] [facility] [address] [place] [address] Chaim Grayson DO [address] [place], [place] [id number] documented as of this encounter Visit Diagnoses Not on filedocumented in this encounter Care Teams Speech And Hearing Clinic Director Relationship Specialty Start Date End Date Shaikh Storm MD PCP - General Internal Medicine 06/04/23 documented as of this encounter
--- OUTSIDE RECORDS SUMMARY | 2025-03-02 13:20 | XMS_ITS | Encounter Summary ---
Author Organization [facility] Address [address] [place] [address] Care Team Providers Care Risk Management Specialist Name Role Phone Brian Avalos MD Primary Care Provider [phone] Kayley Ward PULP DRIER Unavailable [phone] Encounter Details Date Type Department Care Team (Late st Contact Info) Description 08/10/2024 Orders Only [facility] [address] [place] [address] Claire James MD [address] [place] [address] Social History Tobacco Use Types Packs/Day Years [...] declined 01/20/2024 How often do you attend pentecostal or yazidism serv ices? Patient declined 01/20/2024 Do you belong to any clubs o r organizations such as pentecostal groups, unions, fraternal or athletic groups, or [...] documented as of this encounter Care Teams Risk Management Specialist Relationship Specialty Start Date End Date Brian Avalos MD PCP - General Family Medicine 01/12/24 Kayley Ward NP Nurse Practitioner Family Medicine 01/12/24 documented as of this encounter
--- OUTSIDE RECORDS SUMMARY | 2025-03-02 13:20 | XMS_ITS | Encounter Summary ---
Author Organization [facility] Address [address] [place] [address] Care Team Providers Care Animal Keeper Name Role Phone Brian Avalos MD Primary Care Provider [phone] Kayley Ward NAIL EXPERT Unavailable [phone] Encounter Details Date Type Department Care Team (Late st Contact Info) Description 02/21/2025 Clinisync Result Encounter [facility] External [...] declined 01/20/2024 How often do you attend orthodoxy or mandaeism serv ices? Patient declined 01/20/2024 Do you belong to any clubs o r organizations such as orthodoxy groups, unions, fraternal or athletic groups, or [...] any time in the past 12 m [facility], were you homeless or living in a intermediate (including now)? No 01/20/2024 Sex and Gender [...] WO IV CONTRAST 02/21/2025 11:31 AM EDT documented in this encounter Results * CT lumbar spine wo IV contrast (02/21/2025 11:31 AM EDT) Anatomical Region Laterality Modality Spine, L-spine Computed Tomogra phy 02/21/2025 11:3 1 AM EDT Narrative 02/21/2025 11:34 [place] [address] CT Scan Report Signed Patient: YESENIA BROUSSARD MR#: [id number] : 1945 Acct:[id number] Age/Sex: 79 / M ADM Date: 02/21/25 Loc: CT Attending Dr: Loco Farias NP Ordering Physician: Loco Farias NP Date of Service: 02/21/25 Procedure(s): CT lumbar spine wo con Accession Number(s): [id number] cc: Shaikh Joanna Storm [place] [address] Patient Name: YESENIA BROUSSARD MRN: [id number] date: 1945 Sex: M Assigned Patient Location: CT Current Patient Location: CT Accession/Order Number: [id number] Exam Date: 02/21/2025 10:02 Report Date: 02/21/2025 [...] Waite M.D. 02/21/2025 11:31 AM Dictation Location: [place] [address] Electronically authenticated by: [id number] Y Date: 02/21/2025 11:31 Dictated By: Lorelei Waite M.D. Signed By: 02/21/25 1134 DD/ 1131 TD/TT: Set Up Person: Procedure Note Radiology, Radiologist, MD - 02/21/2025 [place] [address] CT Scan Report Signed Patient: YESENIA BROUSSARD RMR#: [id number] : 1945cct:[id number] Age/Sex: 79 / MADM Date: 02/21/25 Loc: CT Attending Dr: Loco Farias NP Ordering Physician: Loco Farias NP Date of Service: 02/21/25 Procedure(s): CT lumbar spine wo con Accession Number(s): [id number] cc: Shaikh Joanna Storm [place] [address] Patient Name: YESENIA BROUSSARD MRN: [facility]:[id number] date: 1945 Sex: M Assigned Patient Location: CT Current Patient Location: CT Accession/Order Number: [id number] Exam Date: 02/21/2025 10:02 Report Date: 02/21/2025 [...] Waite M.D. 02/21/2025 11:31 AM Dictation Location: [place] [address] Electronically authenticated by: [id number] Y Date: 1:31 Dictated By: Lorelei Waite M.D. Signed By:02/21/25 1134 DD/ 1131 TD/TT: Set Up Person: us Generic External Data Provider IMG CT PROCEDURES Final Result documented in this encounter Visit Diagnoses Not on filedocumented in this encounter Additional Health Concerns Assessment Noted Time PHQ-9 Depression Total Score: 5 12/08/19 24 11:00 AM EDT documented as of this encounter Care Teams Animal Keeper Relationship Specialty Start Date End Date Brian Avalos MD PCP - General Family Medicine 01/12/24 Kayley Ward NP Nurse Practitioner Family Medicine 01/12/24 documented as of this encounter
--- OUTSIDE RECORDS SUMMARY | 2025-03-02 13:20 | XMS_ITS | Encounter Summary ---
Author Organization [facility] Address [address] [place] [address] Phone Care Team Providers Care Senior Wind Turbine Technician Name Role Phone Shaikh AUBREE Storm Primary Care Provider [phone] Encounter Details Date Type Department Care Team (Late st Contact Info) Description 05/21/2023 Scanned Document [facility] [address] [place] [phone] Scanning, Generic Provider Social History Tobacco Use [...] Office Visit [facility] [address] [place] [address] Chaim Grayson DO [address] [place], [place] [address] documented as of this encounter Visit Diagnoses Not on filedocumented in this encounter Care Teams Senior Wind Turbine Technician Relationship Specialty Start Date End Date Shaikh Storm MD PCP - General Internal Medicine 06/04/23 documented as of this encounter
--- OUTSIDE RECORDS SUMMARY | 2025-03-02 13:20 | XMS_ITS | Encounter Summary ---
Author Organization [facility] Address [address] [place] [address] Care Team Providers Care Manager Manufacturing Name Role Phone Brian Avalos MD Primary Care Provider [phone] Kayley Ward SOFT SUGAR SUPERVISOR Unavailable [phone] Encounter Details Date Type Department Care Team (Late st Contact Info) Description 08/15/2024 Orders Only [facility] [address] [facility] [place] [address] Claire James MD [address] [place] [address] Social History Tobacco Use Types Packs/Day Years [...] declined 01/20/2024 How often do you attend mu-ism or sabianism serv ices? Patient declined 01/20/2024 Do you belong to any clubs o r organizations such as mu-ism groups, unions, fraternal or athletic groups, or [...] any time in the past 12 m [facility], were you homeless or [...] as of this encounter Care Teams Manager Manufacturing Relationship Specialty Start Date End Date Brian Avalos MD PCP - General Family Medicine 01/12/24 Kayley Ward NP Nurse Practitioner Family Medicine 01/12/24 documented as of this encounter
--- OUTSIDE RECORDS SUMMARY | 2025-03-02 13:20 | XMS_ITS | Encounter Summary ---
Author Organization [facility] Address [address] [place] [address] Care Team Providers Care Spin Instructor Name Role Phone Shaikh AUBREE Storm Primary Care Provider [phone] Brian Avalos MD Primary Care Provider [phone] Kayley Ward NP Unavailable [phone] Encounter Details Date Type Department Care Team (Late st Contact Info) Description 12/09/2023 Orders Only [facility] [address] [place] [address] Cornel Ravi MD [address] [place] [address] Social History Tobacco Use Types [...] documented as of this encounter Care Teams Spin Instructor Relationship Specialty Start Date End Date Shaikh Storm MD PCP - General Internal Medicine 09/28/23 01/11/24 Brian Avalos MD PCP - General Family Medicine 01/12/24 Kayley Ward NP Nurse Practitioner Family Medicine 01/12/24 documented as of this encounter
--- OUTSIDE RECORDS SUMMARY | 2025-03-02 13:20 | XMS_ITS | Encounter Summary ---
Author Organization [facility] Address [address] [place] [address] Phone Care Team Providers Care Director Of Optimization Name Role Phone Shaikh AUBREE Storm Primary Care Provider [phone] Encounter Details Date Type Department Care Team (Late st Contact Info) Description 03/23/2023 Scanned Document [facility] [address] [place] [address] Scanning, Generic Provider Social History Tobacco Use [...] EDT Office Visit [facility] [address] [address] [place] [address] Chaim Grayson DO [address] [place], [place] [address] documented as of this encounter Visit Diagnoses Not on filedocumented in this encounter Care Teams Director Of Optimization Relationship Specialty Start Date End Date Shaikh Storm MD PCP - General Internal Medicine 06/04/23 documented as of this encounter
--- OUTSIDE RECORDS SUMMARY | 2025-03-02 13:20 | XMS_ITS | Clinical Summary ---
Author Organization [facility] Address [address] [place] [address] Care Team Providers Care Gas Welding Machine Operator Name Role Phone Shaikh AUBREE Storm Primary Care Provider [phone] Allergies Active Allergy Reactions Criticality Noted Date Comments Ezetimibe GI intolerance High 04/27/2023 Other reaction(s): Nausea/vomiting Uyippcz-Lma-Opw Reductase Inhibitors Other Medium 03/30/2023 Muscle/Joint Pain [...] 08/17/2023 Active ergocalciferol (Vitamin D-2) 1.25 MG (70429 Units) capsule Take 1,250 mcg by mouth [...] tablet Refills(s) 0 09/18/2023 Active HYDROcodone-nat taminophen ([place]) 7.5-325 mg tablet 1 tablet. 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 Patient is on [place] for chronic pain. He was evaluated by NS at [facility] and it seemed like they were concerned about possible opioid induced hyperalgesia. Patient has been trying to wean himself off of [place] but if he does not use [...] foraminal stenosis Will refer to NS at [facility]. Tobacco abuse 06/29/2023 Overview (11/05/2023): Last Assessment & Plan: He is using Nicotine patches currently. Trying to quite smoking. Will call in [employer] for the patient. Patient counseled on smoking/tobacco [...] [place] 20[place] [facility] Leg pain has improved and is doing well History of [place] (myocardial infarction) 06/04/2023 Kidney disease 06/04/2023 Kidney [...] labs Prostate cancer 11/18/2022 Intermittent claudication 03/04/2021 Encounters Date Type Department Care Team Description 03/01/2025 - 03/01/2025 11:59 PM EDT Hospital Encounter [facility] Radiology External Films [address] [place] [address] Arrived Discharge Disposition: Home or Self Care () from Last 3 Months Family History Medical History Relation Name Comments [...] e alcohol) Have not drank for years [facility] Utilities Answer Date Recorded In the past 12 months has th e electric, gas, oil, or water company threatened to shut off services in your [...] place to sleep or slept in a residential (including now)? No 01/12/2024 Hunger Vital Sign [...] 08/18/2024 2:10 PM EDT Plan of Treatment Upcoming Encounters Date Type Department Care Team (Late st Contact Info) Description 03/15/2025 12:40 PM EDT Follow-Up [facility] [address] [place] [address] Vasile Watson MD [address] [place] [address] Health Maintenance Due Date Last Done Comments [...] on patient's age to complete this topic Procedures Procedure Name Priority Date/Time Associated Diagnosis Comments CT TRANSFER OF OUTSIDE FILMS Routine 03/01/2025 12:00 AM EDT from Last 3 Months Results * CT transfer of outside films (03/01/2025 12:00 AM EDT) Narrative IMAGING - 03/01/2025 11:41 AM EDT This order has been auto-finalized and does not contain a result. us Vasile Watson MD IMG CT PROCEDURES Final Resul t IMAGING from Last 3 Months Insurance [employer] Advance Directives * Full Code (Latest Code Status on File) Date Activated Date Inactivated Comments 11/17/2023 12:45 PM 11/18/2023 2:28 PM Care Teams Gas Welding Machine Operator Relationship Specialty Start Date End Date Shaikh Storm MD PCP - General Family Medicine 09/02/23
--- OUTSIDE RECORDS SUMMARY | 2025-03-02 13:20 | XMS_ITS | Encounter Summary ---
Author Organization [facility] Address [address] [place] [address] Care Team Providers Care Hot Wort Settler Name Role Phone Shaikh AUBREE Storm Primary Care Provider Shaikh AUBREE Storm Primary Care Provider Brian Avalos MD Primary Care Provider Kayley Ward NP Unavailable Encounter Details Date Type Department Care Team (Late st Contact Info) Description 07/29/2023 Orders Only [facility] [address] [place] [address] Shaikh Storm MD [address] [place] [address] Social History Tobacco Use Types Packs/Day Years [...] Shaikh Dotty [facility]BIOLOGY - [facility] Final Result documented in this encounter Visit Diagnoses Not on filedocumented in this encounter Care Teams Hot Wort Settler Relationship Specialty Start Date End Date Shaikh Storm MD PCP - General Internal Medicine 06/01/22 09/27/23 Shaikh Storm MD PCP - General Internal Medicine 09/28/23 01/11/24 Brain Avalos MD PCP - General Family Medicine 01/12/24 Kayley Ward NP Nurse Practitioner Family Medicine 01/12/24 documented as of this encounter
--- OUTSIDE RECORDS SUMMARY | 2025-03-02 13:20 | XMS_ITS | Encounter Summary ---
Author Organization [facility] Address [address] [place] [address] Care Team Providers Care Enterprise Cloud Architect Name Role Phone Shaikh AUBREE Storm Primary Care Provider Shaikh AUBREE Storm Primary Care Provider Brian Avalos MD Primary Care Provider Kayley Ward NP Unavailable Encounter Details Date Type Department Care Team (Late st Contact Info) Description 08/03/2023 Orders Only [facility] [address] [place] [address] Shaikh Storm MD [address] [place] [address] Social History Tobacco Use Types Packs/Day Years [...] Unknown Shaikh Dotty MAK LAB MICROBIOLOGY - [facility] Final Result documented in this encounter Visit Diagnoses Not on filedocumented in this encounter Care Teams Enterprise Cloud Architect Relationship Specialty Start Date End Date Shaikh Storm MD PCP - General Internal Medicine 06/01/22 09/27/23 Shaikh Storm MD PCP - General Internal Medicine 09/28/23 01/11/24 Brian Avalos MD PCP - General Family Medicine 01/12/24 Kayley Ward NP Nurse Practitioner Family Medicine 01/12/24 documented as of this encounter
--- OUTSIDE RECORDS SUMMARY | 2025-03-02 13:20 | XMS_ITS | Encounter Summary ---
Author Organization [facility] Address [address] [place] [address] Phone Care Team Providers Care Senior Brand Manager Name Role Phone Shaikh AUBREE Storm Primary Care Provider [phone] Encounter Details Date Type Department Care Team (Late st Contact Info) Description 01/14/2023 Scanned Document [facility] [address] [place] [address] Conversion, Onbase Social History Tobacco Use Types [...] EDT Office Visit [facility] [address] [place] [address] Chaim Grayson DO [address] [place] [address] documented as of this encounter Visit Diagnoses Not on filedocumented in this encounter Care Teams Senior Brand Manager Relationship Specialty Start Date End Date Shaikh Storm MD PCP - General Internal Medicine 06/04/23 documented as of this encounter
--- OUTSIDE RECORDS SUMMARY | 2025-03-02 13:20 | XMS_ITS | Encounter Summary ---
Author Organization [facility] Address [address] [place] [address] Care Team Providers Care Counseling Aide Name Role Phone Shaikh AUBREE Malik Primary Care Provider Shaikh AUBREE Malik Primary Care Provider Brian Avalos MD Primary Care Provider [phone] Kayley Ward NP Unavailable [phone] Encounter Details Date Type Department Care Team [...] PERFUSION STRESS TEST WITH LEXISCAN Performing facility: [facility], [address] [place] [address], [address], [place] [address] [facility] Provider: Sylvester Grayson DO, [facility] PCP: Dr. Agus MALIK Supervising provider: Inge Dickerson MD INDICATION: HTN, Bilateral Carotid, Chest Pain HISTORY: Gender: M; Age: 77 y/o ; Height: HT 177.8 cm cm; Weight: WT 89.812 kg kg. CAD; High Cholesterol; Abnormal EKG; RBBB Previous [place]; Family HX CAD; Chest Pain; COPD; PAD, CVA, Carotid Disease, CKD Currently smoking. Cardiac catheterization. PTCA 1990s RCA. COMPARISON: No comparison. ACCESSION NUMBER(S): [id number] ORDERING CLINICIAN: VANDANA GRAYSON TECHNIQUE: ONE DAY [...] Inge Dickerson 06/19/2023 11:20 AM Dictation workstation: [id number] Procedure Note Radiology, Radiologist, - 06/19/2023 Interpreted By: Inge Dickerson and Beal Gina STUDY: MYOCARDIAL PERFUSION STRESS TEST WITH LEXISCAN Performing facility: [facility], [address] [place] [address], [address], [address] Provider: Sylvester Grayson DO, [facility] PCP: Dr. Agus MALIK Supervising provider: Inge Dickerson MD INDICATION: HTN, Bilateral Carotid, Chest Pain HISTORY: Gender: M; Age: 77 y/o ; Height: HT 177.8 cm cm; Weight: WT 89.812 kg kg. CAD; High Cholesterol; Abnormal EKG; RBBB Previous [place]; Family HX CAD; Chest Pain; COPD; PAD, CVA, Carotid Disease, CKD Currently smoking. Cardiac catheterization. PTCA 1990s RCA. COMPARISON: No comparison. ACCESSION NUMBER(S): [id number] ORDERING CLINICIAN: VANDANA GRAYSON TECHNIQUE: ONE DAY [...] Inge Dickerson 06/19/2023 11:20 AM Dictation workstation: [id number] us Generic External Data Provider IMG XR PROCEDURES Final Result documented in this encounter Visit Diagnoses Not on filedocumented in this encounter Care Teams Counseling Aide Relationship Specialty Start Date End Date Shaikh Malik MD PCP - General Internal Medicine 06/01/22 09/27/23 Shaikh Malik MD PCP - General Internal Medicine 09/28/23 01/11/24 Brian Avalos MD PCP - General Family Medicine 01/12/24 Kayley Ward NP Nurse Practitioner Family Medicine 01/12/24 documented as of this encounter
[2025-03-02 13:32] LABS: Estimated GFR (African America 36 (>=60 mL/min/1.73m^2); Estimated GFR (Non-African Ame 30 (>=60 mL/min/1.73m^2)
--- NOTE | 2025-03-02 14:08 | CT_ITS ---
The [address] [address] Patient Name: YESENIA MALIK MRN: [id number] date: 1945 Sex: M Assigned Patient Location: LAB Current Patient Location: CT Accession/Order Number: [id number] Exam Date: 03/02/2025 13:45 Report Date: 03/03/2025 13:48 At the request of: BARBARA JOHNSTON MD Procedure: CT abdomen pelvis wo/w con CT ABDOMEN AND PELVIS WITH AND WITHOUT INTRAVENOUS CONTRAST: CLINICAL HISTORY: Gross Hematuria, History Prostate Cancer COMPARISON: None TECHNIQUE: Spiral images were obtained through the abdomen and pelvis before and after the administration of intravenous contrast. This CT exam was performed using one or more following dose reduction techniques: Automated exposure control, adjustment of the mA and/or kV according to patient size, or use of iterative reconstruction technique. FINDINGS: Lung Bases: [No acute process.] Organs:Noncontrast images demonstrates no urinary tract calculus. Postcontrast images demonstrate multiple subcentimeter low attenuating lesions within both kidneys too small fracture characterization. Renal cysts are noted one of which demonstrates a likely hemorrhagic/proteinaceous component. No enhancing renal or collecting system mass. Opacified ureters appear unremarkable. Urinary bladder demonstrates asymmetrical wall thickening involving the left lateral wall. Prostate gland is normal in size. Liver images no enhancing mass. Gallbladder portal vein pancreas spleen and adrenal glands all appear unremarkable. Aorta appears normal in caliber.[ GI: Stomach is grossly unremarkable. Small bowel appears nondilated. Colonic diverticulosis. Postsurgical changes involving the sigmoid colon.[ Pelvis:[No lymphadenopathy is seen.] Peritoneum/Retroperitoneum:No free air or free fluid. Soft tissue nodule involving the right pararenal fat measuring 1.2 x 0.9 cm in greatest axial dimensions. No lymphadenopathy.[ Abd wall/Bones:Umbilical hernia containing uncomplicated colon. Osseous structures demonstrate degenerative change.[ CT/CT abdomen pelvis wo/w con IMPRESSION: No upper collecting system abnormalities seen to explain the patient's hematuria. Asymmetrical wall thickening involving the left lateral wall of the urinary bladder. Underlying malignancy cannot BE excluded and further evaluation with cystoscopy is suggested. Soft tissue nodule is seen involving the right retroperitoneum involving the right perirenal fat measuring 1.2 x 0.9 cm in greatest axial dimensions. CT follow-up is recommended in 3-6 months as this finding is nonspecific and developing sarcoma cannot BE excluded. Impression dictated by: Trever Felix Jr., D.O. 03/03/2025 1:48 PM Dictation Location: [place] [address] Electronically authenticated by: [id number] Y Date: 03/03/2025 13:48
--- OUTSIDE RECORDS SUMMARY | 2025-03-02 19:23 | XMS_ITS | CCD ---
Author Organization [facility] Care Team Providers Care Medical Staff Services Manager Name Role Phone Sterling Vizcaino Primary Care Physician [phone] Theo Thakkar Unavailable Dotty [facility] Primary Care Provider [phone] Barbara Johnston MD Unavailable [phone] YAHAIRA STORMIKH Primary Care Physician [phone] [facility] Primary Care Provider Barbara Johnston MD Unavailable Constance Beverly Unavailable Unavailable Dotty [facility] Primary Care Provider Barbara Johnston MD Unavailable Constance Beverly Unavailable Unavailable MD Dotty [facility] Primary Care Provider MD Zeinab Justice Attending Provider [phone] MD Lyla Nazario Attending Provider LAKSHMIPATHY ., NARENDRANATH Attending Kiera vailable LAKSHMIPATHY ., NARENDRANATH Admitting Kiera vailable HALKER .HUBERT Consulting Unavailable [facility] Primary Care Unavailable OLIVA ., DR HOSEA Davison Admitting Unavailable HOBBS .BERNIE Consulting Unavailable OLIVA ., DR HOSEA Davison Attending Unavailable [facility] Primary Care Unavailable OLIVA ., DR HOSEA Davison Admitting Unavailable OLIVA ., DR HOSEA Davison Consulting Unavailable [facility] Primary Care Unavailable OLIVA ., DR HOSEA Davison Attending Unavailable [facility] Consulting Unavailable HOBBS ., BERNIE Consulting Unavailable OLIVA ., DR HOSEA Davison Attending Unavailable OLIVA ., DR HOSEA Davison Admitting [facility]available [facility] Primary Care Unavailable OLIVA ., DR HOSEA Davison Consulting Unavailable OLIVA ., DR HOSEA Davison Admitting Unavailable OLIVA ., DR HOSEA Davison Consulting Unavailable [facility] Primary Care Unavailable OLIVA ., DR HOSEA Davison Attending Unavailable [facility] Consulting Unavailable JONATHAN MARTIN Consulting Unavailable HOBBS ., BERNIE Consulting Unavailable OLIVA ., DR HOSEA Davison Admitting [facility] Primary Care Unavailable OLIVA ., DR HOSEA Davison Attending Unavailable HOBBS ., BERNIE Consulting Unavailable OLIVA ., DR HOSEA Davison Attending Unavailable OLIVA ., DR HOSEA Davison Admitting Unavailable [facility] Primary Care Unavailable OLIVA ., DR HOSEA Davison Attending Unavailable OLIVA ., DR HOSEA Davison Admitting Unavailable [facility] Primary Care Unavailable OLIVA ., DR HOSEA Davison Consulting Unavailable HOBBS ., BERNIE Consulting Unavailable OLIVA ., DR HOSEA Davison Attending Unavailable OLIVA ., DR HOSEA Davison Admitting Unavailable [facility] Primary Care Unavailable OLIVA ., DR HOSEA Davison Admitting Unavailable [facility] Primary Care Unavailable OLIVA ., DR HOSEA Davison Attending Unavailable OLIVA ., DR HOSEA Davison Admitting Unavailable OLIVA ., DR HOSEA Davison Consulting Unavailable [facility] Primary Care Unavailable OLIVA ., DR HOSEA Davison Attending Unavailable [facility] Primary Care Unavailable JOHNSTON ., DR JIMENEZ Consulting Unavailable JOHNSTON ., DR JIMENEZ Attending Unavailable JOHNSTON ., DR JIMENEZ Admitting Unavailable VIVIANTHEO Consulting Unavailable VIVIANTHEO Attending Unavailable VIVIAN, THEO Admitting Unavailable [facility] Primary Care Unavailable RUT KIRBY Attending Unavailable RUT KIRBY Admitting Unavailable [facility] Primary Care Unavailable MD Justice Storm Primary Care Provider [phone] MD Justice Storm Other Provider ABE Ferrera Attending Provider Anesthesiologist, Temporary Attending Provider U Abdi Augustineie Unavailable MD Lyla Nazario Attending Provider MD Jose Martin Mchugh Attending Provider MD Theo Thakkar Attending Provider [phone] Jose Martin Mchugh Unavailable MD Yahaira Stormikh Primary Care Provider Anesthesiologist, Temporary Attending Provider U MD Lyla Carvalho Attending Provider MD Jose Martin Mchugh Attending Provider MD Theo Thakkar Attending Provider MD Dotty [facility] Primary Care Provider MD Justice Storm Attending Provider Dotty [facility] Primary Care Provider JOSE NICHOLS Referring [facility] Primary Care Unavailable KODI REYNOLDS Attending Unavailable Dotty [facility] Primary Care Provider CHAIM GRAYSON Referring Unavailable [facility] Primary Care Unavailable CHAIM GRAYSON Referring Unavailable [facility] Primary Care Unavailable CHAIM GRAYSON Referring Unavailable [facility] Primary Care Unavailable Nicolette MAK, Adalid Powers Attending Unavailable Dotty [facility] Primary Care Provider MD Yahaira Stormikh Primary Care Provider MD Justice Storm Attending Provider MD Barbara Johnston Referring Provider [phone] Yahaira Storm MDikh Primary Care Provider NO FAMILY, PHYSICIAN Primary Care Provider Unava MD Theo Dill Attending Provider MS. NASIR WARD Primary Care P hysician Barbara JOHNSTON Attending Unavailable [facility] Unavailabl e BRITNI, CLAIRE E Admitting Unavailable BRITNI, CLAIRE E Attending Unavailable BRITNI, CLAIRE E Admitting Unavailable BRITNI, CLAIRE E Attending Unavailable Galea, Karime J Admitting Unavailable Galea, Karime J Attending Unavailable [facility] Unavailabl e Barbara JOHNSTON Attending Unavailable BRITNI, CLAIRE E Attending Unavailable Galea, Karime J Attending Unavailable [facility]av[facility] e Bailey MAK, Brian Primary Care Provider [phone] Ed BOWLING FLOOR MANAGER, Nasir Unavailable Brian Avalos MD Primary Care Provider Farooq Quezada PA-C Emergency Provider NASIR WARD Attending Unavailabl SHAIKH Schmidt Attending Unavailable SHAIKH STORM Attending Unavailable NASIR WARD Attending Unavailabl e ED, NASIR Attending Unavailabl AMBROSIO Galvan Primary Care Physician Brian Avalos MD Primary Care Provider [phone] Farooq Quezada PA-C Emergency Provider Theo Thakkar MD Attending Provider MADERA, VASILE Attending Unavailable MADERA, VASILE Referring Unavailable MADERA, VASILE Referring Unavailable MADERA, VASILE Referring Unavailable MADERA, VASILE Referring Unavailable MADERA, VASILE Referring Unavailable OVITT, JOELLEN Attending Unavailable MADERA, VASILE Admitting Unavailable MADERA, VASILE Attending Unavailable OVITT, JOELLEN Attending Unavailable MADERA, VASILE Attending Unavailable OVITT, JOELLEN Attending Unavailable Orzech, Cherie X Attending Unavailable Orzech, Cherie X Admitting Unavailable BRITNI, CLAIRE E Attending Unavailable BRITNI, CLAIRE E Admitting Unavailable Barbara JOHNSTON Attending Unavailable Shaikh Storm MD Primary Care Provider CLAIRE JAMES Attending Unavailable CLAIRE JAMES Admitting Unavailable JOSE HECTOR Attending Unavailable CHAIM GRAYSON Referring Unavailable [facility] Unavailable Ed BOWLING FLOOR MANAGER, [facility] Unavailable Barbara Johnston MD Unavailable Hyun NAZARIO Attending Unavailable DOT[facility] Primary Care Unavailable Hyun NAZARIO Referring Unavailable YAHAIRA STORMIKH Primary Care Unavailable Farooq Quezada Admitting Unavailable Brian Avalos Primary Care Unavailable Farooq Quezada Attending Unavailable Bailey, Brian Primary Care Unavailable Vivian, Theo Admitting Unavailable Vivian, Theo Attending Unavailable NO FAMILY, PHYSICIAN Primary Care Unavailable Vivian, Theo Attending Unavailable Vivian, Theo Admitting Unavailable Brian Avalos MD Primary Care Provider Ed BOWLING FLOOR MANAGER, [facility] Unavailable Brian Avalos MD Primary Care Provider Vivian MAK, Theo Attending Provider [phone] Barbara JOHNSTON Attending Unavailable [facility] UnavailCLAIRE Powers Attending Unavailable [facility] UnavailCLAIRE Powers Attending Unavailable Allergies Allergy Classification Reported Allergen(s) Allergy Type Date of Onset Reaction(s) Facility (20 sources) ezetimibe; Translations: [EZETIMIBE] Drug Allergy 3 GI intolerance, Nausea/vomiting [facility] (8 sources) HMG-CoA reductase inhibitor; Translations: [[id number] A REDUCTASE INHIBITORS] Drug Intolerance 3 Other [facility] Work Phone: (15 sources) HMG-CoA reductase inhibitor Drug Intolerance 3 Other [facility] Healthcare Medications Current Medications Medication Drug Class(es) Dates Sig (Normalized) Sig (Original) acetaminophen 325 mg oral tablet (14 sources) Start: 11-18-2023 take 2 tablets by [...] tablet by leslie th every six hours Nicolaus 5/325 Tab Oral, q6hr, Refill(s) 0 Start Date: 03/22/21 Status: Ordered Repeat number: 1 Start: 03-22-2021 Nicolaus 5/325 Ta b Oral, q6hr, Refill(s) 0 Start Date: 03/22/21 Status: Ordered Start: 03-22-2021 Nicolaus 5/325 Ta b Oral, q6hr, Refill(s) 0 Start Date: 03/22/21 Status: Ordered take 1 tablet by leslie th every six hours as needed Nicolaus 5-325 MG 1 tablet as needed Orally [...] End: 03-09-2025 take 1 tablet by mouth in the morning amLODIPine (Norvasc) 10 MG tablet Indications: Primary hypertension Take 1 tablet (10 mg) by mouth in the morning. 90 tablet 12/09/2024 03/09/2025 Active Comment on above: amlodipine 10 mg [...] day(s), # 14 cap(s), Refills(s) 0, Pharmacy: [facility]/pharmacy #[id number], 178, cm, 08/08/24 12:38:00 EDT, Height/Length [...] day(s), # 5 tab(s), Refills(s) 0, Pharmacy: [facility] #72, 178, cm, 04/21/23 8:36:00 EST, Height/Length [...] on above: Take 1 tablet by [facility] directed for 12 days. Take 1 tablet by mouth one hour prior to procedure. doxycycline hyclate 100 mg oral capsule (7 sources) Tetracycline-class Drug Start: 04-07-2024 End: 04-14-2024 take 1 capsule by mouth twice daily doxycycline hyclate 100 mg Cap 100 mg = 1 cap(s), Oral, BID, X 7 day(s), # 14 cap(s), Refills(s) 0, Pharmacy: [facility] #72, 178, cm, 09/18/23 10:55:00 EDT, Height/Length [...] therapy Start: 03-11-2024 take 1 capsule by [facility] every week Ergocalciferol (Vitamin D2) 1,250 mcg (50,000 unit) capsule Active 0 .ROUTE .COMPLEX March 11, 2024 10:14am TAKE 1 CAPSULE BY MOUTH ONCE A WEEK Start: 03-11-2024 take 1 capsule by [facility] every week Ergocalciferol (Vitamin D2) 1,250 mcg (50,000 unit) capsule Active 0 .ROUTE .COMPLEX March 11, 2024 9:14am TAKE 1 CAPSULE BY MOUTH ONCE A WEEK Start: 09-15-2023 End: 03-11-2024 Ergocalciferol (Vitamin D2) 1,250 mcg (50,000 unit) capsule Discontinued 81255 UNIT PO Once a week September 15, 2023 5:43pm March 11, 2024 10:15am Start: 09-15-2023 End: 09-15-2023 take 94374 [IU] by mouth every week Ergocalciferol (Vitamin D2) Active 94936 UNIT PO Once a week September 15, 2023 5:43pm Start: 03-10-2023 take 1 capsule by mo uth every week Ergocalciferol 1.25 MG (95468 UT) 1 capsule Orally Q week for 90 days Mar, Active take 1 capsule by mo uth every week ergocalciferol (Vitamin D-2) 1.25 MG (44397 UT) capsule Take 1 capsule (1,250 mcg) [...] (20 sources) Anti-epileptic Agent Start: 3 End: take 1 capsule by mouth twice [...] Bedtime, # 60 tab(s), Refills(s) 3, Pharmacy: [facility] #[facility], 178, cm, 02/11/23 14:50:00 EDT, Height/Length [...] Bedtime, # 30 tab(s), Refills(s) 2, Pharmacy: [facility] #[facility], 178, cm, 12/03/22 15:00:00 EDT, Height/Length [...] hours., # 30 tab(s), Refills(s) 1, Pharmacy: [facility] #72, 178, cm, 07/07/23 9:25:00 EST, Height/Length Dosing, 92, kg, 07/07/23 9:25:00 EST, Weight Dosing Start Date: 07/07/23 Status: Ordered valsartan 80 mg oral tablet (20 sources) Angiotensin 2 Receptor Jimy Start: 06-04-19 End: 08-18-19 take 1 tablet by mouth in the morning valsartan (Diovan) 80 MG tablet Take 80 mg by mouth in the morning. 06/04/2023 Active Varenicline (Chantix Starting Month Box) 0.5 [...] 1 Start: 04-21-2023 take 1 capsule by [facility] week Vitamin D2 50,000 intl units [...] gangrene] Onset: 06-04-1903-25-2021 Episodic Acute cerebrovascular disease (20 sources) Cerebrovascular accident; Translations: [Cerebral infarction, unspecified] [...] 10-25-19 Resolved : 10-25-1903-22-2021 Chronic Esophageal disorders (17 sources) Gastroesophageal reflux disease without esophagitis; Translations: [...] tract infection, site not specified] Onset: 10-29-19 23 Episodic Past or Other Problems Problem Classification Problem Date Documented Date Episodic/Chronic Cancer of prostate (20 sources) History of malignant neoplasm of prostate; Translations: [Personal history of malignant neoplasm of prostate] Onset: 04-27-2023 Episodic Cardiac dysrhythmias (20 sources) Bradycardia; Translations: [Bradycardia, unspecified] Onset: 04-27-2023 06-04-2023 Episodic Diabetes mellitus without complication (15 sources) High glucose level in blood; Translations: [Hyperglycemia, unspecified] Onset: 09-28-2023 09-28-2023 Episodic Mood disorders (15 sources) Mood disorders Onset: 12-08-2023 12-08-2023 Nonspecific chest pain (9 sources) Chest discomfort; Translations: [Other chest pain] Onset: 06-04-2023 06-04-2023 Episodic Other aftercare (2 sources) 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; Translations: [half-way (current) use of anticoagulants] Onset: 11-05-2023 Episodic Other connective tissue disease (6 sources) Other muscle spasm; Translations: [OTHER MUSCLE SPASM] Onset: 03-13-2022 Episodic Other connective tissue disease (15 sources) Synovial cyst of lumbar spine; Translations: [Other bursal cyst, other site] Onset: 09-02-2023 09-28-2023 Episodic Other connective tissue disease (2 sources) Other bursal cyst, other site; Translations: [Other bursal cyst, other site] Onset: 11-17-2023 Episodic Other nervous system disorders (2 sources) Other acute postprocedural pain; Translations: [Other acute postprocedural pain] Onset: 11-17-2023 Episodic Residual codes; unclassified (17 sources) Tobacco user; Translations: [Tobacco use] Onset: 06-29-2023 06-29-2023 Episodic Residual codes; unclassified (15 sources) Weight change finding; Translations: [Other general [...] Test Name Value Interpretation Reference Range Facility CT Lumbar spine WO contrasto n 02-21-2025 [place] [address] CT Scan Report Signed Patient: YESENIA BROUSSARD MR#: [id number] : 1945 Acct:[id number] Age/Sex: 79 / M ADM Date: 02/21/25 Loc: CT Attending Dr: Loco Ferrera BOWLING FLOOR MANAGER Ordering Physician: Loco Ferrera NP Date of Service: 02/21/25 Procedure(s): CT lumbar spine wo con Accession Number(s): [id number] cc: Shaikh Joanna Storm [place] [id number] Patient Name: YEESNIA BROUSSARD MRN: [id number] date: 1945 Sex: M Assigned Patient Location: CT Current Patient Location: CT Accession/Order Number: [id number] Exam Date: 02/21/2025 10:02 Report Date: 02/21/2025 11:31 At the request of: LOCO FERRERA NP Procedure: CT lumbar spine wo con [...] Waite M.D. 02/21/2025 11:31 AM Dictation Location: [place] [address] Electronically authenticated by: [id number] Y Date: 02/21/2025 11:31 Dictated By: Lorelei Waite M.D. Signed By: 02/21/25 1134 DD/ 1131 (more content not included)... [facility] Radiology, Radiologi MD [place] - 02/21/2025 [place] [address] CT Scan Report Signed Patient: YESENIA BROUSSARD MR#: [id number] : 1945 Acct:[id number] Age/Sex: 79 / M ADM Date: 02/21/25 Loc: CT Attending Dr: Loco Ferrera NP Ordering Physician: Loco Ferrera NP Date of Service: 02/21/25 Procedure(s): CT lumbar spine wo con Accession Number(s): [id number] cc: Shaikh Joanna Storm [place] [id number] Patient Name: YESENIA BROUSSARD MRN: [facility]:[id number] date: 1945 Sex: M Assigned Patient Location: CT Current Patient Location: CT Accession/Order Number: [id number] Exam Date: 02/21/2025 10:02 Report Date: 02/21/2025 11:31 At the request of: LOCO FERRERA NP Procedure: CT lumbar spine wo con [...] Waite M.D. 02/21/2025 11:31 AM Dictation Location: [facility] Electronically authenticated by: [id number] Y Date: 02/21/2025 11:31 Dictated By: Lorelei Waite M.D. Signed By: 02/21/25 1134 DD/ 1131 TD/TT: English Instructor: VLADIMIR [facility] Radiology Study observation (narrative) [facility] CT Lumbar spine WO contrastO rdered By: Radiologist Radiology on 02-21-2025 [facility] Work Phone: [employer]erson 02-21-2025 Reminders Reminders From: Bhavana Banks To: EU - Recalls Johnston; Sent: 08/29/2024 16:30:35 EDT Show up: 09/29/2024 16:30:00 EDT Subject: Ct scan/ Cysto Reminder/Recall Patient needs Ct scan and Cysto in October/November 2024 ([facility]) Pt office visit scheduled 04/2025 Spoke to pts , he did not tell her that he was supposed to have a cysto. She stated she will schedule it and make sure he is there. He saw Dr. Nazario recently and PSA had gone up some. He had to go back in 6 months w psa. Pt had Ct [facility] done today [place] [facility] [place]. Not sure what was ordered. Report not available yet. Pt sched for 03/07/25 at [facility] for cysto Normal [facility] Erythrocyte distribution wid th Auto (RBC) [Ratio]Ordered By: Theo Thakkar on 02-13-2025 Erythrocyte distribution width (RBC) [Ratio] 13.6 % 11.0-15.0 [facility] Glomerular filtration rate ( GFR) estimation in non- AmericanOrdered By: Theo Thakkar on 02-13-2025 GFR/1.73 sq M.predicted among non-blacks MDRD (S/P/Bld) [Vol rate/Area] 34 mL/min/{1.73_m2} Low >=60 mL/min/1.7 3m 2 [facility] HMHP CBC WITH PLATELET NO DI FFERENTIALon 02-13-2025 Erythrocyte distribution width (RBC) [Ratio] 13.6 % 11.0 - 15.0 % [facility] Hematocrit (Bld) [Volume fraction] 39.3 % Low 42.0 - 54.0 % [facility] Hemoglobin (Bld) [Mass/Vol] 12.9 g/dL Low 14.0 - 18.0 g/dL [facility] Interpretation and review of laboratory results Abnormal [facility] MCH (RBC) [Entitic mass] 30.9 pg 25.9 - 34.0 pg [facility] MCHC (RBC) [Mass/Vol] 32.8 g/dL 29.9 - 35.2 g/dL [facility] MCV (RBC) [Entitic vol] 94 fL 80.0 - 94.0 fL [facility] Platelet mean volume (Bld) [Entitic vol] 10.3 fL 9.5 - 13.5 fL [facility] TBH PLT 271 [facility] TBH RBC 4.18 Low [facility] WBC 8 [facility] Hematocrit Auto (Bld) [Volum e fraction]Ordered By: Theo Thakkar on 02-13-2025 Hematocrit (Bld) [Volume fraction] 39.3 % Low 42.0-54.0 [facility] Hemoglobin [Mass/volume] in BloodOrdered By: Theo Thakkar on 02-13-2025 Hemoglobin (Bld) [Mass/Vol] 12.9 g/dL Low 14.0-18.0 [facility] Iron binding capacity [Mass/ volume] in Serum or PlasmaOrdered By: Theo Thakkar on 02-13-2025 Iron binding capacity [Mass/Vol] 354.0 ug/dL 250.0-450. 0 [facility] Iron saturation [Mass Fracti on] in Serum or PlasmaOrdered By: Theo Thakkar on 02-13-2025 Iron saturation [Mass fraction] 22.6 % [facility] Laboratory - Chemistry and C hemistry - challengeOrdered By: Theo Thakkar on 02-13-2025 Bilirubin Ql (U) SMALL Abnormal NEGATIVE [facility] Glucose (U) [Mass/Vol] Negative NEGATIVE [facility] Ketones Ql (U) TRACE mg/dL Abnormal NEGATIVE [facility] pH (U) 5.5 [pH] 5.0-9.0 [facility] Specific gravity (U) [Rel density] 1.025 1.005-1.02 5 [facility] Urobilinogen Qn (U) 0.2 {Jing'U}/dL 0.2-1.0 [facility] Albumin [Mass/Vol] 3.8 g/dL 3.4-5.0 [facility] Calcium [Mass/Vol] 9.2 mg/dL 8.5-10.1 [facility] Chloride [Moles/Vol] 106 mmol/L 98-107 [facility] CO2 [Moles/Vol] 23.6 mmol/L 21.0-32.[address] [facility] Creatinine [Mass/Vol] 1.93 mg/dL High 0.70-1.30 [facility] Ferritin [Mass/Vol] 45.0 ng/mL 26.0-388.0 [facility] GFR/1.73 sq M.predicted MDRD (S/P/Bld) [Vol rate/Area] 41 mL/min/{1.73_m2} Low >=60 mL/min/1.7 3m 2 [facility] Glucose [Mass/Vol] 105 mg/dL 74-106 [facility] Iron [Mass/Vol] 80.0 ug/dL 65.0-175.0 [facility] Magnesium [Mass/Vol] 2.0 mg/dL 1.8-2.4 [facility] Potassium [Moles/Vol] 5.2 mmol/L High 3.5-5.1 [facility] Sodium [Moles/Vol] 139 mmol/L 136-145 [facility] Urate [Mass/Vol] 6.6 mg/dL 3.5-7.[address] [facility] Urea nitrogen [Mass/Vol] 28.0 mg/dL High 7.0-18.0 [facility] Urea nitrogen/Creatinine [Mass ratio] 14.5 mg/mg [facility] Laboratory - Specimen inform ationOrdered By: Theo Thakkar on 02-13-2025 Appearance (U) SL CLOUDY CLEAR [facility] Color (U) LT. YELLOW YELLOW [facility] Laboratory - UrinalysisOrder ed By: Theo Thakkar on 02-13-2025 Leukocyte esterase Test strip Ql (U) LARGE Abnormal NEGATIVE [facility] Mucus Ql (Urine sed) NONE SEEN NONE SEEN [facility] Nitrite Ql (U) Negative NEGATIVE [facility] Protein (U) [Mass/Vol] 147.8 mg/dL High <=11.9 [facility] Protein Ql (U) 100 mg/dL Abnormal NEG/TRACE [facility] Leukocytes [#/volume] correc diana for nucleated erythrocytes in Blood by Automated counOrdered By: Theo Thakkar on 02-13-2025 WBC corrected for nucl RBC Auto (Bld) [#/Vol] 8.0 10 3/uL 4.0-11.0 [facility] MCH Auto (RBC) [Entitic mass ]Ordered By: Theo Thakkar on 02-13-2025 MCH (RBC) [Entitic mass] 30.9 pg 25.9-34.0 [facility] MCHC Auto (RBC) [Mass/Vol]Or dered By: Theo Thakkar on 02-13-2025 MCHC (RBC) [Mass/Vol] 32.8 g/dL 29.9-35.2 [facility] MCV Auto (RBC) [Entitic vol] Ordered By: Theo Thakkar on 02-13-2025 MCV (RBC) [Entitic vol] 94.0 fL 80.0-94.0 [facility] No Panel InformationOrdered By: Theo Thakkar on 02-13-2025 Urine Bacteria SMALL #/HPF Abnormal NONE SEEN [facility] Urine Occult Blood TRACE-I NEGATIVE [facility] Urine Other Casts NONE SEEN #/LPF NONE SEEN [facility] Urine Other Crystals None Seen #/HPF None Seen [facility] Urine Random Creatinine 214.61 mg/dL 20.00-300. 00 [facility] Urine RBC 0-2 #/HPF 0-2 [facility] Urine Squamous Epithelial Cells RARE #/LPF NONE/RARE [facility] Urine WBC 50-75 #/HPF Abnormal NONE SEEN [facility] 25-Hydroxy Vitamin D Total 43.3 ng/mL [facility] Comment on above: <20 ng/mL Vit D defi cient20-<30 ng/mL Vit D [id number] ng/mL Vit D sufficient>100 ng/mL Potential Toxicity Parathyroid Hormone (Intact) 81 pg/mL Abnormal [facility] Comment on above: Performed at: - L [employer] [address] [id number] Director: Rojelio Nelson PhD, Phone: [phone] Phosphorus Level 3.9 mg/dL 2.6-4.[address] [facility] Platelet mean volume Auto (B ld) [Entitic vol]Ordered By: Theo Thakkar on 02-13-2025 Platelet mean volume (Bld) [Entitic vol] 10.3 fL 9.5-13.5 [facility] Platelets Auto (Bld) [#/Vol] Ordered By: Theo Thakkar on 02-13-2025 Platelets (Bld) [#/Vol] 271 10 3/uL 150-450 [facility] RBC Auto (Bld) [#/Vol]Ordere d By: Theo Thakkar on 02-13-2025 RBC (Bld) [#/Vol] 4.18 10 6/uL Low 4.70-6.10 [facility] Serum or plasma anion gap de terminationOrdered By: Teho Thakkar on 02-13-2025 Anion gap [Moles/Vol] 14.6 mmol/L [facility] Urine protein/creatinine rat ioOrdered By: Theo Thakkar on 02-13-2025 Protein/Creatinine (U) [Ratio] 0.69 [facility] CNOVon 01-18-2025 CNOV Office Visit (RADTSA ) -- YESENIA [id number]) 1945 M Date Time Provider Department 01/18/25 9:45 AM Hyun NAZARIO During your visit today, we recorded the following information about you: Temperature Pulse Respiration Blood pressure 98.6 degrees 92/minute 16/minute 150/75 Weight Height 88.5 kg 1.778 m KrunalKelly MA 01/18/2025 9:49 AM Signed AUA=6 Hyun [...] ASSESSMENT/PLAN: Prostate adenocarcinoma, initial PSA 9.95, biopsy [place] score 3 + 4 = 7 (grade [...] Nazario MD cc: Shaikh Dotty [address] [place] [address] Allergies As of Date: 01/18/2025 (No Known Allergies) Date Reviewed: 01/18/2025 Reviewed by: Kelly Hector, TERESO - Fully Assessed Reason for Visit: Prostate Cancer [590] Cmt: Follow up Primary Visit Diagnosis:Cancer of prostate w/med recur risk (T2b-c or Nicola 7 or PSA 10-20) (HCC) [C61] Order(s):PROSTATE-SPECIFIC ANTIGEN DIAGNOSTIC [SQPSA] Order #: [id number] FUTURE Prescriptions as of 01/18/2025 - HYDROcodone-acetaminophen [...] days Level of Service: OFFICE/OUTPATIENT ESTABLISHED LOW [facility] 20 MIN [41333] Additional E/M codes: VISIT CPLX INHERENT EANDM ASSOC WITH MED * (more content not included)... Normal [facility] PSA SERPL-MCNCon 025 [facility] PSA SERPL-MCNC 1.56 ng/mL NINF - 2.60 ng/mL [facility] Comment on above: Total PSA test metho dology used is the Electrochemiluminescence Immunoassay by [employer]. Total PSA values by differing methodologies cannot be interchanged. Specimen Type: BLOOD SPECIMEN Ordering Facility: [facility] Address: [address] [place] [address] Original Ordering Provider: Hyun NAZARIO [facility] PSA SerPl-mCncon 01-12-2025 Prostate specific Ag [Mass/Vol] 1.56 ng/mL Normal <2.60 [facility] Comment on above: Order Comment: Speci men Type: BLOOD SPECIMEN Ordering Facility: [facility] Address: [address] [place], [place] [id number] Result Comment: Tota l PSA test methodology used is the Electrochemiluminescence Immunoassay by [employer]. Total PSA values by differing methodologies cannot be interchanged. Performed By: #### 2 [id number] #### [facility] CLIA [id number] [address] [place] [address] [place] Urine Cytology ([facility])on 0 09-02-2024 Microscopic exam Cytology (U) [Interp] Diagnosis Info Invalid Interpretation Code [facility] Comment on above: Result Comment: A:Ur ine,Urine:Voided Interpretation - Adequate cellularity for evaluation. CPT 24635 MicroScopic Description - Adequacy - Gross Description Site ID:A color Yellow fixative Alcohol Specimen designated Urine received in alcohol preservative and labeled with the patient???s name, consists of 70ml clear yellow fluid. Electronically signed by : on: 09/02/2024 13:57:41 Performed By: #### 1 [id number] #### [facility] [address] [place] [address] Ambulatory Visit Summaryon 0 08-29-2024 Ambulatory Visit Summary Ambulatory Visit Summary YESENIA BROUSSARD :1945 Visit Date:08/29/2024 Ambulatory Visit Instructions Your Diagnosis Gross hematuria Your Care Team Attending Physician - CLAIRE JAMES PA-C Primary Care Physician - AMBROSIO SCALES CNP This Is Your Medications List acetaminophen-hydrocodone (Nicolaus 5/325 Tab) amlodipine (amLODIPine 10 mg Tab) [...] Barbara JOHNSTON MD Where: [facility] [address] [place] [address]- You Need to Schedule the Following Appointments Follow Up with [facility] Xenia When: Comments: For procedure as scheduled. Where: Medications What How Much When Instructions Unchanged acetaminophen-hydrocodone (Nicolaus 5/ 325 Tab) By Mouth Every 6 [...] these instructions at home: Medicines ??? Take ijip-ikl-castwod and prescription medicines only as told by [...] urine to (more content not included)... Normal [facility] Urine Cytology ([facility])on 0 08-29-2024 Method of Extraction Voided Normal [facility] Comment on above: Performed By: #### 1 [id number] #### [facility] [address] [place] [address] Number of Jars 1 Invalid Interpretation Code [facility] Comment on above: Performed By: #### 1 [id number] #### [facility] [address] [place] [address] Specimen Urine Normal [facility] Comment on above: Performed By: #### 1 [id number] #### [facility] [address] [place] [address] Type of Service Technical Only Normal [facility] Comment on above: Performed By: #### 1 [id number] #### [facility] [address] [place] [address] Urology Office/Clinic Noteon 08-29-2024 Urology Office/Clinic Note [...] E&M of Est. Patient Moderate 30-39 Min 65079 Urine Cytology ([facility]) Urnls Dip Stick Auto w/o Microscopy POC [id number] Follow-up With When Contact Information [facility] Additional Instructions: For procedure as scheduled. Patient [...] 1 tab(s) nitroglycerin 0.4 mg sublingual Tab Nicolaus 5/325 Tab, Oral, q6hr pravastatin 40 mg [...] 11:52:00) Blood U (more content not included)... [facility] Comment on above: Result Comment: Elec tronically Signed By: CLAIRE JAMES PA-C\.br\Date and Time Signed: 08/29/24 14:09 EDT C Urineon 08-25-2024 Bacteria identified Cx Nom (U) Microbiology PROCEDURE: Urine Culture [R1] SOURCE: U CleanCatch BODY SITE: COLLECTED DATE/TIME: 08/22/2024 16:34 EDT RECEIVED DATE/TIME: 08/23/2024 17:54 EDT START DATE/TIME: 08/23/2024 17:54 EDT FREE TEXT SOURCE: NITESH William APRN-Trent, Stewart MCMULLEN, NITESH-C, Cherie X Cherie X FINAL REPORTS Final Report [] Verified Date/Time: 08/25/2024 07:02 EDT 100 cfu/ml Mixed skin contaminants Performing Locations R1: This test was performed at: [facility], [address] [place] [address], [phone] , [place], [facility] Comment on above: Performed By: #### 2 [id number] #### [facility] [address] [place] [id number] Ambulatory Visit Summaryon 0 08-22-2024 Ambulatory Visit Summary Ambulatory Visit Summary YESENIA BROUSSARD :1945 Visit Date:08/22/2024 Ambulatory Visit Instructions Your Care Team Attending Physician - Barbara JOHNSTON MD Primary Care Physician - AMBROSIO SCALES CNP This Is Your Medications List acetaminophen-hydrocodone (Nicolaus 5/325 Tab) amlodipine (amLODIPine 10 mg Tab) [...] Barbara JOHNSTON MD Where: [facility] [address] [address] Medications What How Much When Instructions Unchanged acetaminophen-hydrocodone (Nicolaus 5/ 325 Tab) By Mouth Every 6 [...] for choosing us for your care. Normal [facility] Follow-Upon 08-18-2024 Follow-Up [id number] Dianne Broussard mandeep 1945 M Date Provider Department Center 08/18/[address] [facility] SURG [place] Family History Problem Relation Age of Onset Hypertension Mother Diabetes Father Family Status - Relation Status Age at Mother Father Level of Service:69664 [place] OFFICE/OUTPATIENT ESTABLISHED LOW MDM 20 MIN Reason for Visit and Comments: Follow-up [834210] Normal [facility] C Urineon 08-12-2024 Bacteria identified Cx Nom (U) Microbiology PROCEDURE: Urine Culture [R1] SOURCE: U Random BODY SITE: COLLECTED DATE/TIME: 08/08/2024 13:00 EDT RECEIVED DATE/TIME: 08/08/2024 17:47 EDT START DATE/TIME: 08/08/2024 17:47 EDT FREE TEXT SOURCE: BRITNI ENCINAS, CLAIRE JAMES PA-C, CLAIRE Boswell FINAL REPORTS Final Report [...] Locations R1: This test was performed at: [facility], [address] [place] [address], [phone] , , [facility] Comment on above: Performed By: #### 2 [id number] #### [facility] [address] [place] [id number] Albumin [Mass/volume] in Ser um or Plasma by Bromocresol green (BCG) dye binding methoOrdered By: Theo Thakkar on 08-10-2024 Albumin BCG dye [Mass/Vol] Albumin [Mass/volume] in Serum or Plasma by Bromocresol green (BCG) dye binding metho 3.5-5.7 [facility] Appearance of UrineOrdered B y: Theo Thakkar on 08-10-2024 Appearance (U) Urine appearance Clear [facility] Bacteria [Presence] in Urine by AutomatedOrdered By: Theo Thakkar on 08-10-2024 Bacteria Auto Ql (U) Bacteria [Presence] in Urine by Automated None Seen [facility] Bilirubin Test strip Ql (U)O rdered By: Theo Thakkar on 08-10-2024 Bilirubin Ql (U) Bilirubin.total [Pre sence] in Urine by Test strip Negative [facility] Calcium [Mass/volume] in Ser um or PlasmaOrdered By: Theo Thakkar on 08-10-2024 Calcium [Mass/Vol] Calcium [Mass/volume ] in Serum or Plasma 8.6-10.3 [facility] Carbon dioxide, total [Moles /volume] in Serum or PlasmaOrdered By: Theo Thakkar on 08-10-2024 CO2 [Moles/Vol] Carbon dioxide, tota l [Moles/volume] in Serum or Plasma 21.0-31.0 [facility] Chloride [Moles/volume] in S jaime or PlasmaOrdered By: Theo Thakkar on 08-10-2024 Chloride [Moles/Vol] Chloride [Moles/vol ume] in Serum or Plasma 98-107 [facility] Color Auto (U)Ordered By: Ab bola Thakkar on 08-10-2024 Color (U) Color of Urine by Auto [facility] Creatinine [Mass/volume] in Serum or PlasmaOrdered By: Theo Thakkar on 08-10-2024 Creatinine [Mass/Vol] Creatinine [Mass/v olume] in Serum or Plasma High 0.70-1.30 [facility] Creatinine [Mass/volume] in UrineOrdered By: Theo Thakkar on 08-10-2024 Creatinine (U) [Mass/Vol] Creatinine [Mass/volume] in Urine [facility] Comment on above: No reference range e stablished Dipstick and Microscopicon 0 08-10-2024 Appearance (U) Clear Normal Clear [facility] Comment on above: Order Comment: Name Collection Type:: Clean-Voided Midstream Performed By: #### P TH, RENAL, MG, [id number], URIC, CBCNO, JAVIER, FE and TIBC #### [address] Bacteria,Urine None Seen Normal None Seen [facility] Comment on above: Order Comment: Name Collection Type:: Clean-Voided Midstream Performed By: #### P TH, RENAL, MG, [id number], URIC, CBCNO, JAVIER, FE and TIBC #### [address] Bilirubin,Urine Negative Normal Negative [facility] Comment on above: Order Comment: Name Collection Type:: Clean-Voided Midstream Performed By: #### P TH, RENAL, MG, [id number], URIC, CBCNO, JAVIER, FE and TIBC #### [address] Color (U) Light-Yellow Normal Yellow [facility] Comment on above: Order Comment: Name Collection Type:: Clean-Voided Midstream Performed By: #### P TH, RENAL, MG, [id number], URIC, CBCNO, JAVIER, FE and TIBC #### [address] Glucose Ql (U) Normal Normal Normal [facility] Comment on above: Order Comment: Name Collection Type:: Clean-Voided Midstream Performed By: #### P TH, RENAL, MG, [id number], URIC, CBCNO, JAVIER, FE and TIBC #### [address] Hyaline Casts,Urine 0-8 Normal 0-8 [facility] Comment on above: Order Comment: Name Collection Type:: Clean-Voided Midstream Performed By: #### P TH, RENAL, MG, [id number], URIC, CBCNO, JAVIER, FE and TIBC #### [address] Ketones Ql (U) Negative Normal Negative [facility] Comment on above: Order Comment: Name Collection Type:: Clean-Voided Midstream Performed By: #### P TH, RENAL, MG, [id number], URIC, CBCNO, JAVIER, FE and TIBC #### [address] Leukocyte esterase Test strip Ql (U) 2+ High Negative [facility] Comment on above: Order Comment: Name Collection Type:: Clean-Voided Midstream Performed By: #### P TH, RENAL, MG, [id number], URIC, CBCNO, JAVIER, FE and TIBC #### [address] Mucus,Urine Rare Normal [facility] Comment on above: Order Comment: Name Collection Type:: Clean-Voided Midstream Result Comment: PERF ORMED BY: [place] [id number] PATHOLOGIST PLASTIC STRAIGHTENING ROLL OPERATOR ROS GUNDERSON M.D. Performed By: #### P TH, RENAL, MG, [id number], URIC, CBCNO, JAVIER, FE and TIBC #### [address] Nitrite,Urine Negative Normal Negative [facility] Comment on above: Order Comment: Name Collection Type:: Clean-Voided Midstream Performed By: #### P TH, RENAL, MG, [id number], URIC, CBCNO, JAVIER, FE and TIBC #### [address] Occult Blood,Urine 1+ High Negative [facility] Comment on above: Order Comment: Name Collection Type:: Clean-Voided Midstream Performed By: #### P TH, RENAL, MG, [id number], URIC, CBCNO, JAVIER, FE and TIBC #### [address] pH (U) 6.0 [pH] Normal 5.0-9.0 [facility] Comment on above: Order Comment: Name Collection Type:: Clean-Voided Midstream Performed By: #### P TH, RENAL, MG, [id number], URIC, CBCNO, JAVIER, FE and TIBC #### [address] Protein (U) [Mass/Vol] 50 mg/dL High Negative e [facility] Comment on above: Order Comment: Name Collection Type:: Clean-Voided Midstream Performed By: #### P TH, RENAL, MG, [id number], URIC, CBCNO, JAVIER, FE and TIBC #### [address] RBC,Urine 5-9 High 0-4 [facility] Comment on above: Order Comment: Name Collection Type:: Clean-Voided Midstream Performed By: #### P TH, RENAL, MG, [id number], URIC, CBCNO, JAVIER, FE and TIBC #### [address] Specificy [place],Urine 1.016 Normal 1.001-1.03 0 [facility] Comment on above: Order Comment: Name Collection Type:: Clean-Voided Midstream Performed By: #### P TH, RENAL, MG, [id number], URIC, CBCNO, JAVIER, FE and TIBC #### [address] Urobilinogen,Urine Normal Normal Normal [facility] Comment on above: Order Comment: Name Collection Type:: Clean-Voided Midstream Performed By: #### P TH, RENAL, MG, [id number], URIC, CBCNO, JAVIER, FE and TIBC #### [address] WBC CLUMP, Urine Occasional High None Seen [facility] Comment on above: Order Comment: Name Collection Type:: Clean-Voided Midstream Performed By: #### P TH, RENAL, MG, [id number], URIC, CBCNO, JAVIER, FE and TIBC #### [address] WBC,Urine 20-49 High 0-4 [facility] Comment on above: Order Comment: Name Collection Type:: Clean-Voided Midstream Performed By: #### P TH, RENAL, MG, [id number], URIC, CBCNO, JAVIER, FE and TIBC #### [address] Epithelial cells.squamous [# /area] in Urine sediment by Automated countOrdered By: Theo Thakkar on 08-10-2024 Epithelial cells.squamous Auto (Urine sed) [#/Area] Epithelial cells.squamous [#/area] in Urine sediment by Automated count [facility] Erythrocyte distribution wid th Auto (RBC) [Ratio]Ordered By: Theo Thakkar on 08-10-2024 Erythrocyte distribution width (RBC) [Ratio] Erythrocyte distribution width [Ratio] by Automated count High 12.0-14.8 [facility] Erythrocytes [#/area] in Uri ne sediment by Automated countOrdered By: Theo Thakkar on 08-10-2024 RBC Auto (Urine sed) [#/Area] Erythrocytes [#/area] in Urine sediment by Automated count High 0-4 [facility] Ferritinon 08-10-2024 Ferritin [Mass/Vol] 14.0 ng/mL Low 23.9-336.2 [facility] Comment on above: Performed By: #### P TH, RENAL, MG, [id number], URIC, CBCNO, JAVIER, FE and TIBC #### [facility] [address] Ferritin [Mass/volume] in Se rum or PlasmaOrdered By: Theo Thakkar on 08-10-2024 Ferritin [Mass/Vol] Ferritin [Mass/volum e] in Serum or Plasma Low 23.9-336.2 [facility] Glucose [Mass/volume] in Ser um or PlasmaOrdered By: Theo Thakkar on 08-10-2024 Glucose [Mass/Vol] Glucose [Mass/volume ] in Serum or Plasma High 70-100 [facility] Comment on above: ADA recommended refe rence rangeRandom Glucose Reference Range is dependent on time and content of last meal. Glucose of more than 200 mg/dL in a nonstressed, ambulatory subject supports the diagnosis of Diabetes Mellitus. Glucose [Mass/volume] in Uri ne by Test stripOrdered By: Theo Thakkar on 08-10-2024 Glucose Test strip (U) [Mass/Vol] Glucose [Mass/volume] in Urine by Test strip Normal [facility] Hematocrit Auto (Bld) [Volum e fraction]Ordered By: Theo Thakkar on 08-10-2024 Hematocrit (Bld) [Volume fraction] Hematocrit [Volume Fraction] of Blood by Automated count 38.8-50.0 [facility] Hemoglobin Test strip Ql (U) Ordered By: Theo Thakkar on 08-10-2024 Hemoglobin Ql (U) Hemoglobin [Presence ] in Urine by Test strip High Negative [facility] Hemoglobin [Mass/volume] in BloodOrdered By: Theo Thakkar on 08-10-2024 Hemoglobin (Bld) [Mass/Vol] Hemoglobin [Mass/volume] in Blood 13.0-17.0 [facility] Hemogram CBC Without Diffon 08-10-2024 Erythrocyte distribution width (RBC) [Ratio] 15.8 % High 12.0-14.8 [facility] Comment on above: Performed By: #### P TH, RENAL, MG, [id number], URIC, CBCNO, JAVIER, FE and TIBC #### [address] Hematocrit (Bld) [Volume fraction] 39.2 % Normal 38.8-50.0 [facility] Comment on above: Performed By: #### P TH, RENAL, MG, [id number], URIC, CBCNO, JAIVER, FE and TIBC #### [address] Hemoglobin (Bld) [Mass/Vol] 13.0 g/dL Normal 13.0-17.0 [facility] Comment on above: Performed By: #### P TH, RENAL, MG, [id number], URIC, CBCNO, JAVIER, FE and TIBC #### [address] MCH (RBC) [Entitic mass] 29.9 pg Normal 27.5-35.2 [facility] Comment on above: Performed By: #### P TH, RENAL, MG, [id number], URIC, CBCNO, JAVIER, FE and TIBC #### [address] MCV (RBC) [Entitic vol] 90.3 fL Normal 83.5-101 [facility] Comment on above: Performed By: #### P TH, RENAL, MG, [id number], URIC, CBCNO, JAVIER, FE and TIBC #### [address] Mean Corpuscular HGB Conc 33.1 g/dL Normal 32.5-35.6 [facility] Comment on above: Performed By: #### P TH, RENAL, MG, [id number], URIC, CBCNO, JAVIER, FE and TIBC #### [address] Platelet mean volume (Bld) [Entitic vol] 8.9 fL Normal 6.6-10.1 [facility] Comment on above: Result Comment: PERF ORMED BY: [place] [id number] PATHOLOGIST PLASTIC STRAIGHTENING ROLL OPERATOR ROS GUNDERSON M.D. Performed By: #### P TH, RENAL, MG, [id number], URIC, CBCNO, JAVIER, FE and TIBC #### [address] Platelets (Bld) [#/Vol] 293 10*3/uL Normal 150-450 [facility] Comment on above: Performed By: #### P TH, RENAL, MG, [id number], URIC, CBCNO, JAVIER, FE and TIBC #### [address] RBC (Bld) [#/Vol] 4.34 10*6/uL Normal 3.90-5.60 [facility] Comment on above: Performed By: #### P TH, RENAL, MG, [id number], URIC, CBCNO, JAVIER, FE and TIBC #### [address] WBC (Bld) [#/Vol] 6.9 10*3/uL Normal 4.1-10.5 [facility] Comment on above: Performed By: #### P TH, RENAL, MG, [id number], URIC, CBCNO, JAVIER, FE and TIBC #### [address] Hyaline casts [#/area] in Ur ine sediment by Automated countOrdered By: Theo Thakkar on 08-10-2024 Hyaline casts Auto (Urine sed) [#/Area] Hyaline casts [#/area] in Urine sediment by Automated count 0-8 [facility] Iron [Mass/volume] in Serum or PlasmaOrdered By: Theo Thakkar on 08-10-2024 Iron [Mass/Vol] Iron [Mass/volume] i n Serum or Plasma 50-212 [facility] Iron and TIBC Profileon 07-30 % Iron Saturation 19.9 % Low 20-50 [facility] Comment on above: Performed By: #### P TH, RENAL, MG, [id number], URIC, CBCNO, JAVIER, FE and TIBC #### [facility] [address] Iron [Mass/Vol] 87 ug/dL Normal 50-212 [facility] Comment on above: Performed By: #### P TH, RENAL, MG, [id number], URIC, CBCNO, JAVIER, FE and TIBC #### [facility] [address] Total Iron Binding Capacity 438 ug/dL Normal 255-450 [facility] Comment on above: Performed By: #### P TH, RENAL, MG, [id number], URIC, CBCNO, JAVIER, FE and TIBC #### [facility] [address] Transferrin [Mass/Vol] 313 mg/dL Normal 203-362 [facility] Comment on above: Performed By: #### P TH, RENAL, MG, [id number], URIC, CBCNO, JAVIER, FE and TIBC #### [facility] [address] Ketones Test strip Ql (U)Ord ered By: Theo Thakkar on 08-10-2024 Ketones Ql (U) Ketones [Presence] i n Urine by Test strip Negative [facility] Leukocyte clumps [Presence] in Urine by AutomatedOrdered By: Theo Thakkar on 08-10-2024 Leukocyte clumps Auto Ql (U) Leukocyte clumps [Presence] in Urine by Automated High None Seen [facility] Leukocyte esterase [Presence ] in Urine by Test stripOrdered By: Theo Thakkar on 08-10-2024 Leukocyte esterase Test strip Ql (U) Leukocyte esterase [Presence] in Urine by Test strip High Negative [facility] Leukocytes [#/area] in Urine sediment by Automated countOrdered By: Theo Thakkar on 08-10-2024 WBC Auto (Urine sed) [#/Area] Leukocytes [#/area] in Urine sediment by Automated count High 0-4 [facility] Leukocytes [#/volume] correc diana for nucleated erythrocytes in Blood by Automated counOrdered By: Theo Thakkar on 08-10-2024 WBC corrected for nucl RBC Auto (Bld) [#/Vol] Leukocytes [#/volume] corrected for nucleated erythrocytes in Blood by Automated coun 4.1-10.5 [facility] MCH Auto (RBC) [Entitic mass ]Ordered By: Theo Thakkar on 08-10-2024 MCH (RBC) [Entitic mass] MCH [Entitic mass] by Automated count 27.5-35.2 [facility] MCHC Auto (RBC) [Mass/Vol]Or dered By: Theo Thakkar on 08-10-2024 MCHC (RBC) [Mass/Vol] MCHC [Mass/volume] by Automated count 32.5-35.6 [facility] MCV Auto (RBC) [Entitic vol] Ordered By: Theo Thakkar on 08-10-2024 MCV (RBC) [Entitic vol] MCV [Entitic volume] by Automated count 83.5-101 [facility] Magnesiumon 08-10-2024 Magnesium [Mass/Vol] 2.1 mg/dL Normal 1.9-2.7 [facility] Comment on above: Performed By: #### P TH, RENAL, MG, [id number], URIC, CBCNO, JAVIER, FE and TIBC #### [facility] [address] Magnesium [Mass/volume] in S jaime or PlasmaOrdered By: Theo Thakkar on 08-10-2024 Magnesium [Mass/Vol] Magnesium [Mass/vol ume] in Serum or Plasma 1.9-2.7 [facility] Mucus [Presence] in Urine by AutomatedOrdered By: Theo Thakkar on 08-10-2024 Mucus Auto Ql (U) Mucus [Presence] in Urine by Automated [facility] Nitrite Test strip Ql (U)Ord ered By: Theo Thakkar on 08-10-2024 Nitrite Ql (U) Nitrite [Presence] i n Urine by Test strip Negative [facility] No Panel InformationOrdered By: Theo Thakkar on 08-10-2024 Estimated GFR (CKD-EPI) 39.659 mL/Min [facility] Creatinine Clearance (Chem N/A [facility] Parathyrin.intact [Mass/volu me] in Serum or PlasmaOrdered By: Theo Thakkar on 08-10-2024 Parathyrin.intact [Mass/Vol] Parathyrin.intact [Mass/volume] in Serum or Plasma High 12- [facility] Parathyroid Hormone Intacton 08-10-2024 Parathyroid Hormone Intact 96.1 pg/mL High [facility] Comment on above: Result Comment: PERF ORMED BY: [place] [id number] PATHOLOGIST PLASTIC STRAIGHTENING ROLL OPERATOR ROS GUNDERSON M.D. Performed By: #### P TH, RENAL, MG, [id number], URIC, CBCNO, JAVIER, FE and TIBC #### [address] Phosphate [Mass/volume] in S jaime or PlasmaOrdered By: Theo Thakkar on 08-10-2024 Phosphate [Mass/Vol] Phosphate [Mass/vol ume] in Serum or Plasma 2.5-4.5 [facility] Platelet mean volume Auto (B ld) [Entitic vol]Ordered By: Theo Thakkar on 08-10-2024 Platelet mean volume (Bld) [Entitic vol] Platelet mean volume [Entitic volume] in Blood by Automated count 6.6-10.1 [facility] Platelets Auto (Bld) [#/Vol] Ordered By: Theo Thakkar on 08-10-2024 Platelets (Bld) [#/Vol] Platelets [#/volume] in Blood by Automated count 150-450 [facility] Potassium [Moles/volume] in Serum or PlasmaOrdered By: Theo Thakkar on 08-10-2024 Potassium [Moles/Vol] Potassium [Moles/v olume] in Serum or Plasma 3.5-5.1 [facility] Protein Creat Ratio Ur Rando mon 08-10-2024 Creatinine, Urine (Random) 114.00 mg/dL Normal [facility] Comment on above: Result Comment: No r eference range established Performed By: #### P TH, RENAL, MG, [id number], URIC, CBCNO, JAVIER, FE and TIBC #### [facility] [address] Protein (U) [Mass/Vol] 81 mg/dL High 0-9 [facility] Comment on above: Performed By: #### P TH, RENAL, MG, [id number], URIC, CBCNO, JAVIER, FE and TIBC #### [facility] [address] Urine Protein/Creatinine Ratio 711 mg/g{Cre} High 0-200 [facility] Comment on above: Result Comment: PERF ORMED BY: [place] [id number] PATHOLOGIST PLASTIC STRAIGHTENING ROLL OPERATOR ROS GUNDERSON M.D. Performed By: #### P TH, RENAL, MG, [id number], URIC, CBCNO, JAVIER, FE and TIBC #### [facility] [address] [place] [address] Protein Test strip (U) [Mass /Vol]Ordered By: Theo Thakkar on 08-10-2024 Protein (U) [Mass/Vol] Protein [Mass/vol ume] in Urine by Test strip High Negative [facility] Protein [Mass/volume] in Uri neOrdered By: Theo Thakkar on 08-10-2024 Protein (U) [Mass/Vol] Protein [Mass/vol ume] in Urine High 0-9 [facility] RBC Auto (Bld) [#/Vol]Ordere d By: Theo Thakkar on 08-10-2024 RBC (Bld) [#/Vol] Erythrocytes [#/volu me] in Blood by Automated count 3.90-5.60 [facility] Renal Function Panelon 08-10 Albumin [Mass/Vol] 4.3 g/dL Normal 3.5-5.7 [facility] Comment on above: Performed By: #### P TH, RENAL, MG, [id number], URIC, CBCNO, JAVIER, FE and TIBC #### [address] Anion gap [Moles/Vol] 9.2 mmol/L Normal 6.0-15.0 [facility] Comment on above: Performed By: #### P TH, RENAL, MG, [id number], URIC, CBCNO, JAVIER, FE and TIBC #### [address] Calcium [Mass/Vol] 9.2 mg/dL Normal 8.6-10.3 [facility] Comment on above: Performed By: #### P TH, RENAL, MG, [id number], URIC, CBCNO, JAVIER, FE and TIBC #### [address] Chloride [Moles/Vol] 106 mmol/L Normal 98-107 [facility] Comment on above: Performed By: #### P TH, RENAL, MG, [id number], URIC, CBCNO, JAVIER, FE and TIBC #### [address] CO2 [Moles/Vol] 27.7 mmol/L Normal 21.0-31.0 [facility] Comment on above: Performed By: #### P TH, RENAL, MG, [id number], URIC, CBCNO, JAVIER, FE and TIBC #### [address] Creatinine [Mass/Vol] 1.73 mg/dL High 0.70-1.30 [facility] Comment on above: Performed By: #### P TH, RENAL, MG, [id number], URIC, CBCNO, JAVIER, FE and TIBC #### [address] Estimated GFR 39.659 mL/Min Normal [facility] Comment on above: Performed By: #### P TH, RENAL, MG, [id number], URIC, CBCNO, JAVIER, FE and TIBC #### [address] Glucose [Mass/Vol] 119 mg/dL High 70-100 [facility] Comment on above: Result Comment: [facility] Glucose Reference Range is dependent on time and content of last meal. Glucose of more than 200 mg/dL in a nonstressed, ambulatory subject supports the diagnosis of Diabetes Mellitus. ADA recommended reference range Performed By: #### P TH, RENAL, MG, [id number], URIC, CBCNO, JAVIER, FE and TIBC #### [address] Phosphate [Mass/Vol] 3.4 mg/dL Normal 2.5-4.5 [facility] Comment on above: Performed By: #### P TH, RENAL, MG, [id number], URIC, CBCNO, JAVIER, FE and TIBC #### [address] Potassium [Moles/Vol] 4.9 mmol/L Normal 3.5-5.1 [facility] Comment on above: Performed By: #### P TH, RENAL, MG, [id number], URIC, CBCNO, JAVIER, FE and TIBC #### [address] Sodium [Moles/Vol] 138 mmol/L Normal 136-145 [facility] Comment on above: Performed By: #### P TH, RENAL, MG, [id number], URIC, CBCNO, JAVIER, FE and TIBC #### [address] Urea nitrogen [Mass/Vol] 24 mg/dL Normal 7-25 [facility] Comment on above: Performed By: #### P TH, RENAL, MG, [id number], URIC, CBCNO, JAVIER, FE and TIBC #### [facility] [address] Serum or plasma anion gap de terminationOrdered By: Theo Thakkar on 08-10-2024 Anion gap [Moles/Vol] Serum or plasma an ion gap determination 6.0-15.0 [facility] Serum or plasma iron binding capacity measurement (mass/volume)Ordered By: Theo Thakkar on 08-10-2024 Iron binding capacity [Mass/Vol] Iron binding capacity [Mass/volume] in Serum or Plasma 255-450 [facility] Serum or plasma iron saturat ion measurement (mass fraction)Ordered By: Theo Joycer on 08-10-2024 Iron saturation [Mass fraction] Iron saturation [Mass Fraction] in Serum or Plasma Low 20-50 [facility] Sodium [Moles/volume] in Ser um or PlasmaOrdered By: Theo Vivian on 08-10-2024 Sodium [Moles/Vol] Sodium [Moles/volume ] in Serum or Plasma 136-145 [facility] Specific gravity Test strip (U) [Rel density]Ordered By: Theo Thakkar on 08-10-2024 Specific gravity (U) [Rel density] Specific gravity of Urine by Test strip 1.001-1.03 0 [facility] Transferrin [Mass/volume] in Serum or PlasmaOrdered By: Theo Vivian on 08-10-2024 Transferrin [Mass/Vol] Transferrin [Mass /volume] in Serum or Plasma 203-362 [facility] Urate [Mass/volume] in Serum or PlasmaOrdered By: Theo Vivian on 08-10-2024 Urate [Mass/Vol] Urate [Mass/volume] in Serum or Plasma 4.4-7.6 [facility] Urea nitrogen [Mass/volume] in Serum or PlasmaOrdered By: Theo Vivian on 08-10-2024 Urea nitrogen [Mass/Vol] Urea nitrogen [Mass/volume] in Serum or Plasma 7-25 [facility] Uric Acidon 08-10-2024 Urate [Mass/Vol] 6.2 mg/dL Normal 4.4-7.6 [facility] Comment on above: Performed By: #### P TH, RENAL, MG, [id number], URIC, CBCNO, JAVIER, FE and TIBC #### [facility] [address] Urine Cultureon 08-10-2024 Bacteria identified Cx Nom (U) No Growth 2 Days PERFORMED BY: [place] [id number] PATHOLOGIST PLASTIC STRAIGHTENING ROLL OPERATOR ROS GUNDERSON M.D. Normal [facility] Comment on above: Performed By: #### P TH, RENAL, MG, [id number], URIC, CBCNO, JAVIER, FE and TIBC #### [facility] [address] Urine cultureOrdered By: Abd ul Vivian on 08-10-2024 Bacteria identified Cx Nom (U) Urine culture [facility] Urine protein/creatinine rat ioOrdered By: Theo Vivian on 08-10-2024 Protein/Creatinine (U) [Ratio] Urine protein/creatinine ratio High 0-200 [facility] Urobilinogen Test strip (U) [Mass/Vol]Ordered By: Theo Vivian on 08-10-2024 Urobilinogen (U) [Mass/Vol] Urobilinogen [Mass/volume] in Urine by Test strip Normal [facility] Vitamin D 25 Hydroxy Totalon 08-10-2024 Vitamin D 25 Hydroxy Total 51.2 ng/mL Normal 30-100 [facility] Comment on above: Result Comment: [place] MIN D STATUS 25(OH)VITAMIN D RANGE (ng/mL) Deficient <20 Insufficient 20 to <30 Sufficient 30 to 100 Reference: Grecia MF,Wayne NC, John VILLEGAS, et al. Evaluation,treatment, and prevention of vitamin D deficiency; an Endocrine Society clinical practice guideline. JCEM. 2010; 96(7):1911-30. PERFORMED BY: [place] [id number] PATHOLOGIST PLASTIC STRAIGHTENING ROLL OPERATOR ROS GUNDERSON M.D. Performed By: #### P TH, RENAL, MG, [id number], URIC, CBCNO, JAVIER, FE and TIBC #### [facility] [address] Vitamin D+Metabolites [Mass/ volume] in Serum or PlasmaOrdered By: Theo Thakkar on 08-10-2024 Vitamin D+Metabolites [Mass/Vol] Vitamin D+Metabolites [Mass/volume] in Serum or Plasma 30-100 [facility] Comment on above: VITAMIN D STATUS 25( [place])VITAMIN D RANGE (ng/mL) Deficient <20 Insufficient 20 to <30Sufficient 30 to 100Reference: Grecia MF,Wayne PALMER, John VILLEGAS, et al. Evaluation,treatment, and prevention of vitamin D deficiency; an Endocrine Society clinical practice guideline. JCEM. 2010; 96(7):1911-30. pH Test strip (U)Ordered By: Theo Thakkar on 08-10-2024 pH (U) pH of Urine by Test strip 5.0-9.0 [facility] Urology Office/Clinic Noteon 08-08-2024 Urology Office/Clinic Note [...] day(s), # 14 cap(s), Refills(s) 0, Pharmacy: [facility]/pharmacy #[id number], 178, cm, 08/08/24 12:38:00 EDT, Height/Length Dosing, 90.4, kg, 08/08/24 12:38:00 EDT, Weight Dosing 68333 Measure Post Void residual urine and/or bladder capacity by US- non-imaging Body Mass Index (BMI) documented 3008F Current tobacco smoker 1034F Depression Screening Negative 3352F E&M of Est. Patient Moderate 30-39 Min 10333 Influenza immunization status assessed 1030F Medication list [...] Urnls Dip Stick Auto w/o Microscopy POC 39838 Orders: tadalafil, 20 mg = 1 tab(s), Oral, As Directed, Do not exceed 20mg within 48 hours., # 30 tab(s), Refills(s) 1, Pharmacy: [facility] #[id number], 178, cm, 07/07/23 9:25:00 EST, Height/Length Dosing, 92, kg, 07/07/23 9:25:00 EST, Weight Dosing Follow-up With When Contact Information [facility] [place] Additional Instructions: Only if needed/new problems [...] Oral, q12hr nitroglycerin 0.4 mg sublingual Tab Nicolaus 5/325 Tab, Oral, q6hr pravastatin 40 mg [...] 08/08/2024 F (more content not included)... Normal [facility] Comment on above: Result Comment: Elec tronically Signed By: CLAIRE JAMES PA-C\Date and Time Signed: 08/08/24 13:51 EDT Ambulatory [...] prescribing physician if questions or concerns acetaminophen-hydrocodone (Nicolaus 5/325 Tab) amlodipine (amLODIPine 10 mg Tab) [...] Barbara JOHNSTON MD Where: [facility] [address] [place] [address]- You Need to Schedule the Following Appointments Follow Up with Barbara JOHNSTON MD, URL When: Comments: 1 yr w/ PSA Where: [facility] [address] , [place] [address]- [phone] Medications What How Much When Instructions Unchanged tadalafil (Cialis 20 mg Tab) 1 Tablets By Mouth As Directed Do not exceed 20mg within 48 hours. Unchanged acetaminophen-hydrocodone (Nicolaus 5/ 325 Tab) By Mouth Every 6 [...] villegas (more content not included)... Normal [facility] Urology Office/Clinic Noteon 04-18-2024 Urology Office/Clinic Note [...] No concerns. Follow-up With When Contact Information Barbara JOHNSTON MD, URL [facility] [address], [place] [phone] Additional Instructions: 1 yr w/ PSA Patient Education Urinary Tract Infection, Adult I, Rosario Byrne, personally scribed for Dr. Johnston on 04/18/2024 12:09:55. . Documentation recorded by the scribeRosario, accurately reflects the services(s) I performed and [...] infection) UTI (more content not included)... Normal [facility] Comment on above: Result Comment: Elec [...] Locations R1: This test was performed at: [facility], [address] [place] [address], [id number] , [place], Normal [facility] Comment on above: Performed By: #### [id number] #### [facility] [address] [place] [id number] Albumin [Mass/volume] in Ser um or Plasma by Bromocresol green (BCG) dye binding methoOrdered By: Theo Thakkar on 02-25-2024 Albumin BCG dye [Mass/Vol] 4.2 g/dL 3.5-5.7 [facility] Bacteria [Presence] in Urine by AutomatedOrdered By: Theo Thakkar on 02-25-2024 Bacteria Auto Ql (U) None seen [HPF] None Seen [facility] Bilirubin Test strip Ql (U)O rdered By: Theo Thakkar on 02-25-2024 Bilirubin Ql (U) Negative Negative [facility] Calcium [Mass/volume] in Ser um or PlasmaOrdered By: Theo Thakkar on 02-25-2024 Calcium [Mass/Vol] 9.4 mg/dL Normal 8.6-10.3 [facility] Comment on above: Order Comment: Reaso n for Exam Chronic kidney disease, stage III (moderate);Charly tyron kid w cr Performed By: #### P TH, RENAL, MG, [id number], URIC, CBCNO, JAVIER, FE and TIBC #### [facility] [address] Carbon dioxide, total [Moles /volume] in Serum or PlasmaOrdered By: Theo Thakkar on 02-25-2024 CO2 [Moles/Vol] 24.9 mmol/L Normal 21.0-31.[address] [facility] Comment on above: Order Comment: Reaso n for Exam Chronic kidney disease, stage III (moderate);Charly tyron kid w cr Performed By: #### P TH, RENAL, MG, [id number], URIC, CBCNO, JAVIER, FE and TIBC #### [facility] [address] [place] [id number] [place] Chloride [Moles/volume] in S jaime or PlasmaOrdered By: Theo Thakkar on 02-25-2024 Chloride [Moles/Vol] 105 mmol/L Normal 98-107 [facility] Comment on above: Order Comment: Reaso n for Exam Chronic kidney disease, stage III (moderate);Charly hy kid w cr Performed By: #### P TH, RENAL, MG, [id number], URIC, CBCNO, JAVIER, FE and TIBC #### [facility] [address] [place] [id number] [place] Color of Urine by AutoOrdere d By: Theo Thakkar on 02-25-2024 Color (U) Yellow Normal Yellow [facility] Comment on above: Order Comment: Reaso n for Exam Chronic kidney disease, stage III (moderate);Charly tyron kid w cr Name Collection Type:: Clean-Voided Midstream Performed By: #### P TH, RENAL, MG, [id number], URIC, CBCNO, JAVIER, FE and TIBC #### [facility] [address] [place] [id number] [place] Creatinine [Mass/volume] in Serum or PlasmaOrdered By: Theo Thakkar on 02-25-2024 Creatinine [Mass/Vol] 1.67 mg/dL High 0.70-1.30 [facility] Comment on above: Order Comment: Theodore n for Exam Chronic kidney disease, stage III (moderate);Charly hy kid w cr Performed By: #### P TH, RENAL, MG, [id number], URIC, CBCNO, JAVIER, FE and TIBC #### [facility] [address] [place] [id number] [place] Creatinine [Mass/volume] in UrineOrdered By: Theo Thakkar on 02-25-2024 Creatinine (U) [Mass/Vol] 173.00 mg/dL [facility] Comment on above: No reference range e stablished Dipstick and Microscopicon 0 02-25-2024 Bacteria,Urine None Seen Normal None Seen [facility] Comment on above: Order Comment: Reaso n for Exam Chronic kidney disease, stage III (moderate);Charly hill w cr Name Collection Type:: Clean-Voided Midstream Performed By: #### P TH, RENAL, MG, [id number], URIC, CBCNO, JAVIER, FE and TIBC #### [facility] [address] Bilirubin,Urine Negative Normal Negative [facility] Comment on above: Order Comment: Reaso n for Exam Chronic kidney disease, stage III (moderate);Charly hill w cr Name Collection Type:: Clean-Voided Midstream Performed By: #### P TH, RENAL, MG, [id number], URIC, CBCNO, JAVIER, FE and TIBC #### [facility] [address] Glucose Ql (U) Normal Normal Normal [facility] Comment on above: Order Comment: Reaso n for Exam Chronic kidney disease, stage III (moderate);Charly hill w cr Name Collection Type:: Clean-Voided Midstream Performed By: #### P TH, RENAL, MG, [id number], URIC, CBCNO, JAVIER, FE and TIBC #### [address] Granular Casts, Urine 5-9 High None Seen [facility] Comment on above: Order Comment: Reaso n for Exam Chronic kidney disease, stage III (moderate);Charly palomo cr Name Collection Type:: Clean-Voided Midstream Performed By: #### P TH, RENAL, MG, [id number], URIC, CBCNO, JAVIER, FE and TIBC #### [facility] [address] Hyaline Casts,Urine 20-49 High 0-8 [facility] Comment on above: Order Comment: Reaso n for Exam Chronic kidney disease, stage III (moderate);Charly hill w cr Name Collection Type:: Clean-Voided Midstream Performed By: #### P TH, RENAL, MG, [id number], URIC, CBCNO, JAVIER, FE and TIBC #### [facility] [address] Mucus,Urine Rare Normal [facility] Comment on above: Order Comment: Reaso n for Exam Chronic kidney disease, stage III (moderate);Charly hill w cr Name Collection Type:: Clean-Voided Midstream Result Comment: PERF ORMED BY: [place] [id number] PATHOLOGIST PLASTIC STRAIGHTENING ROLL OPERATOR ANA HURT M.D. Performed By: #### P TH, RENAL, MG, [id number], URIC, CBCNO, JAVIER, FE and TIBC #### [address] Nitrite,Urine Negative Normal Negative [facility] Comment on above: Order Comment: Reaso n for Exam Chronic kidney disease, stage III (moderate);Charly tyron kid w cr Name Collection Type:: Clean-Voided Midstream Performed By: #### P TH, RENAL, MG, [id number], URIC, CBCNO, JAVIER, FE and TIBC #### [address] Occult Blood,Urine 1+ High Negative [facility] Comment on above: Order Comment: Reaso n for Exam Chronic kidney disease, stage III (moderate);Charly hill w cr Name Collection Type:: Clean-Voided Midstream Performed By: #### P TH, RENAL, MG, [id number], URIC, CBCNO, JAVIER, FE and TIBC #### [address] RBC,Urine 10-19 High 0-4 [facility] Comment on above: Order Comment: Reaso n for Exam Chronic kidney disease, stage III (moderate);Charly tyron hill w cr Name Collection Type:: Clean-Voided Midstream Performed By: #### P TH, RENAL, MG, [id number], URIC, CBCNO, JAVIER, FE and TIBC #### [address] Specificy [place],Urine 1.018 Normal 1.001-1.03 0 [facility] Comment on above: Order Comment: Reaso n for Exam Chronic kidney disease, stage III (moderate);Charly hy kid w cr Name Collection Type:: Clean-Voided Midstream Performed By: #### P TH, RENAL, MG, [id number], URIC, CBCNO, JAVIER, FE and TIBC #### [facility] [address] Squamous Epithelial Cell,Urine 1-2 Normal 0-2 [facility] Comment on above: Order Comment: Reaso n for Exam Chronic kidney disease, stage III (moderate);Charly hill w cr Name Collection Type:: Clean-Voided Midstream Performed By: #### P TH, RENAL, MG, [id number], URIC, CBCNO, JAVIER, FE and TIBC #### [facility] [address] Urobilinogen,Urine Normal Normal Normal [facility] Comment on above: Order Comment: Reaso n for Exam Chronic kidney disease, stage III (moderate);Charly hill w cr Name Collection Type:: Clean-Voided Midstream Performed By: #### P TH, RENAL, MG, [id number], URIC, CBCNO, JAVIER, FE and TIBC #### [facility] [address] WBC CLUMP, Urine Many High None Seen [facility] Comment on above: Order Comment: Reaso n for Exam Chronic kidney disease, stage III (moderate);Charly hill w cr Name Collection Type:: Clean-Voided Midstream Performed By: #### P TH, RENAL, MG, [id number], URIC, CBCNO, JAVIER, FE and TIBC #### [facility] [address] [place] [address] [place] WBC,Urine Innumerable High 0-4 [facility] Comment on above: Order Comment: Reaso n for Exam Chronic kidney disease, stage III (moderate);Charly hill w cr Name Collection Type:: Clean-Voided Midstream Performed By: #### P TH, RENAL, MG, [id number], URIC, CBCNO, JAVIER, FE and TIBC #### [facility] [address] [place] [id number] [facility] Epithelial cells.squamous [# /area] in Urine sediment by Automated countOrdered By: Theo Thakkar on 02-25-2024 Epithelial cells.squamous Auto (Urine sed) [#/Area] 1-2 [HPF] 0-2 [facility] Erythrocyte distribution wid th [Ratio] by Automated countOrdered By: Theo Thakkar on 02-25-2024 Erythrocyte distribution width (RBC) [Ratio] 15.0 % High 12.0-14.8 [facility] Comment on above: Order Comment: Reaso n for Exam Chronic kidney disease, stage III (moderate);Charly ackerman sergio w cr Performed By: #### C BCNO #### [facility] [address] [place] [address] Erythrocytes [#/area] in Uri ne sediment by Automated countOrdered By: Theo Thakkar on 02-25-2024 RBC Auto (Urine sed) [#/Area] 10-19 [HPF] High 0-4 [facility] Erythrocytes [#/volume] in B lood by Automated countOrdered By: Theo Thakkar on 02-25-2024 RBC (Bld) [#/Vol] 4.02 10*6/uL Normal 3.90-5.60 [facility] Comment on above: Order Comment: Reaso n for Exam Chronic kidney disease, stage III (moderate);Charly hill w cr Performed By: #### C BCNO #### [facility] [address] [place] [address] Glucose [Mass/volume] in Ser um or PlasmaOrdered By: Theo Thakkar on 02-25-2024 Glucose [Mass/Vol] 95 mg/dL Normal 70-100 [facility] Comment on above: ADA recommended refe rence rangeRandom Glucose Reference Range is dependent on time and content of last meal. Glucose of more than 200 mg/dL in a nonstressed, ambulatory subject supports the diagnosis of Diabetes Mellitus. Order Comment: Reaso n for Exam Chronic kidney disease, stage III (moderate);Charly hill w cr Result Comment: [place] [facility] Glucose Reference Range is dependent on time and content of last meal. Glucose of more than 200 mg/dL in a nonstressed, ambulatory subject supports the diagnosis of Diabetes Mellitus. ADA recommended reference range Performed By: #### P TH, RENAL, MG, [id number], URIC, CBCNO, JAVIER, FE and TIBC #### [address] Glucose [Mass/volume] in Uri ne by Test stripOrdered By: Theo Thakkar on 02-25-2024 Glucose Test strip (U) [Mass/Vol] Normal mg/dL Normal [facility] Granular casts [#/area] in U rine by Computer assisted methodOrdered By: Theo Thakkar on 02-25-2024 Granular casts Computer assisted (U) [#/Area] 5-9 [LPF] High None Seen [facility] Hematocrit [Volume Fraction] of Blood by Automated countOrdered By: Theo Thakkar on 02-25-2024 Hematocrit (Bld) [Volume fraction] 34.7 % Low 38.8-50.0 [facility] Comment on above: Order Comment: Reaso n for Exam Chronic kidney disease, stage III (moderate);Charly hy kid w cr Performed By: #### C BCNO #### [address] Hemoglobin Test strip Ql (U) Ordered By: Theo Thakkar on 02-25-2024 Hemoglobin Ql (U) 1+ High Negative [facility] Hemoglobin [Mass/volume] in BloodOrdered By: Theo Thakkar on 02-25-2024 Hemoglobin (Bld) [Mass/Vol] 11.4 g/dL Low 13.0-17.0 [facility] Comment on above: Order Comment: Reaso n for Exam Chronic kidney disease, stage III (moderate);Charly hy kid w cr Performed By: #### C BCNO #### [address] Hemogram CBC Without Diffon 02-25-2024 Mean Corpuscular HGB Conc 32.9 g/dL Normal 32.5-35.6 [facility] Comment on above: Order Comment: Reaso n for Exam Chronic kidney disease, stage III (moderate);Charly hy kid w cr Performed By: #### C BCNO #### [address] WBC (Bld) [#/Vol] 6.9 10*3/uL Normal 4.1-10.5 [facility] Comment on above: Order Comment: Reaso n for Exam Chronic kidney disease, stage III (moderate);Charly palomo cr Performed By: #### C BCNO #### [facility] [address] [place] [address] [place] Hyaline casts [#/area] in Ur ine sediment by Automated countOrdered By: Theo Vivian on 02-25-2024 Hyaline casts Auto (Urine sed) [#/Area] 20-49 [LPF] High 0-8 [facility] Ketones [Presence] in Urine by Test stripOrdered By: Theo Vivian on 02-25-2024 Ketones Ql (U) Negative Normal Negative [facility] Comment on above: Order Comment: Reaso n for Exam Chronic kidney disease, stage III (moderate);Charly palomo cr Name Collection Type:: Clean-Voided Midstream Performed By: #### P TH, RENAL, MG, [id number], URIC, CBCNO, JAVIER, FE and TIBC #### [facility] [address] [place] [address] [place] Leukocyte clumps [Presence] in Urine by AutomatedOrdered By: Theo Vivian on 02-25-2024 Leukocyte clumps Auto Ql (U) Many [LPF] High None Seen [facility] Leukocyte esterase [Presence ] in Urine by Test stripOrdered By: Theo Vivian on 02-25-2024 Leukocyte esterase Test strip Ql (U) 4+ High Negative [facility] Comment on above: Order Comment: Reaso n for Exam Chronic kidney disease, stage III (moderate);Charly palomo cr Name Collection Type:: Clean-Voided Midstream Performed By: #### P TH, RENAL, MG, [id number], URIC, CBCNO, JAVIER, FE and TIBC #### [facility] [address] [id number] [place] Leukocytes [#/area] in Urine sediment by Automated countOrdered By: Theo Vivian on 02-25-2024 WBC Auto (Urine sed) [#/Area] Innumerable [HPF] High 0-4 [facility] Leukocytes [#/volume] correc diana for nucleated erythrocytes in Blood by Automated counOrdered By: Theo Thakkar on 02-25-2024 WBC corrected for nucl RBC Auto (Bld) [#/Vol] 6.9 10*3/uL 4.1-10.5 [facility] MCH [Entitic mass] by Automa diana countOrdered By: Theo Thakkar on 02-25-2024 MCH (RBC) [Entitic mass] 28.4 pg Normal 27.5-35.2 [facility] Comment on above: Order Comment: Reaso n for Exam Chronic kidney disease, stage III (moderate);Charly hy kid w cr Performed By: #### C BCNO #### [facility] [address] [place] [address] MCHC Auto (RBC) [Mass/Vol]Or dered By: Theo Thakkar on 02-25-2024 MCHC (RBC) [Mass/Vol] 32.9 g/dL 32.5-35.6 [facility] MCV [Entitic volume] by Auto mated countOrdered By: Theo Thakkar on 02-25-2024 MCV (RBC) [Entitic vol] 86.3 fL Normal 83.5-101 [facility] Comment on above: Order Comment: Reaso n for Exam Chronic kidney disease, stage III (moderate);Charly hy kid w cr Performed By: #### C BCNO #### [facility] [address] Magnesium [Mass/volume] in S jaime or PlasmaOrdered By: Theo Thakkar on 02-25-2024 Magnesium [Mass/Vol] 2.2 mg/dL Normal 1.9-2.7 [facility] Comment on above: Order Comment: Reaso n for Exam Chronic kidney disease, stage III (moderate);Charly hy kid w cr Performed By: #### P TH, RENAL, MG, [id number], URIC, CBCNO, JAVIER, FE and TIBC #### [facility] [address] Mucus [Presence] in Urine by AutomatedOrdered By: Theo Thakkar on 02-25-2024 Mucus Auto Ql (U) Rare [LPF] [facility] Nitrite Test strip Ql (U)Ord ered By: Theo Thakkar on 02-25-2024 Nitrite Ql (U) Negative Negative [facility] No Panel InformationOrdered By: Theo Thakkar on 02-25-2024 Estimated GFR (CKD-EPI) 41.634 mL/Min [facility] Creatinine Clearance (Chem N/A [facility] Parathyrin.intact [Mass/volu me] in Serum or PlasmaOrdered By: Theo Thakkar on 02-25-2024 Parathyrin.intact [Mass/Vol] 97.8 pg/mL High 12 [facility] Parathyroid Hormone Intacton 02-25-2024 Parathyroid Hormone Intact 97.8 pg/mL High [facility] Comment on above: Order Comment: Reaso n for Exam Chronic kidney disease, stage III (moderate);Charly [place] w cr Result Comment: PERF ORMED BY: [place] [id number] PATHOLOGIST PLASTIC STRAIGHTENING ROLL OPERATOR ANA HURT M.D. Performed By: #### P TH, RENAL, MG, [id number], URIC, CBCNO, JAVIER, FE and TIBC #### [facility] [address] [place] [address] Phosphate [Mass/volume] in S jaime or PlasmaOrdered By: Theo Thakkar on 02-25-2024 Phosphate [Mass/Vol] 3.6 mg/dL Normal 2.5-4.5 [facility] Comment on above: Order Comment: Reaso n for Exam Chronic kidney disease, stage III (moderate);Charly hy kid w cr Performed By: #### P TH, RENAL, MG, [id number], URIC, CBCNO, JAVIER, FE and TIBC #### [facility] [address] [place] [address] [place] Platelet mean volume [Entiti c volume] in Blood by Automated countOrdered By: Theo Thakkar on 02-25-2024 Platelet mean volume (Bld) [Entitic vol] 8.9 fL Normal 6.6-10.1 [facility] Comment on above: Order Comment: Reaso n for Exam Chronic kidney disease, stage III (moderate);Charly hy kid w cr Result Comment: PERF ORMED BY: [place] [address] PATHOLOGIST PLASTIC STRAIGHTENING ROLL OPERATOR ANA HURT M.D. Performed By: #### C BCNO #### [facility] [address] [place] [address] [place] Platelets [#/volume] in Bloo d by Automated countOrdered By: Theo Thakkar on 02-25-2024 Platelets (Bld) [#/Vol] 305 10*3/uL Normal 150-450 [facility] Comment on above: Order Comment: Reaso n for Exam Chronic kidney disease, stage III (moderate);Charly hy kid w cr Performed By: #### C BCNO #### [address] Potassium [Moles/volume] in Serum or PlasmaOrdered By: Theo Thakkar on 02-25-2024 Potassium [Moles/Vol] 4.8 mmol/L Normal 3.5-5.1 [facility] Comment on above: Order Comment: Reaso n for Exam Chronic kidney disease, stage III (moderate);Charly hy kid w cr Performed By: #### P TH, RENAL, MG, [id number], URIC, CBCNO, JAVIER, FE and TIBC #### [facility] [address] [place] [address] Protein Creat Ratio Ur Rando mon 02-25-2024 Creatinine, Urine (Random) 173.00 mg/dL Normal [facility] Comment on above: Order Comment: Reaso n for Exam Chronic kidney disease, stage III (moderate);Charly hy kid w cr Result Comment: No r eference range established Performed By: #### P ROCRERAT #### [address] Urine Protein/Creatinine Ratio 786 mg/g{Cre} High 0-200 [facility] Comment on above: Order Comment: Reaso n for Exam Chronic kidney disease, stage III (moderate);Charly hy kid w cr Result Comment: PERF ORMED BY: [place] [address] PATHOLOGIST PLASTIC STRAIGHTENING ROLL OPERATOR ANA HURT M.D. Performed By: #### P ROCRERAT #### [place] [address] [place] Protein [Mass/volume] in Uri neOrdered By: Theo Vivian on 02-25-2024 Protein (U) [Mass/Vol] 136 mg/dL High 0-9 [facility] Comment on above: Order Comment: Reaso n for Exam Chronic kidney disease, stage III (moderate);Charly hy kid w cr Performed By: #### P ROCRERAT #### [place] [address] [place] Protein [Mass/volume] in Uri ne by Test stripOrdered By: Theo Thakkar on 02-25-2024 Protein (U) [Mass/Vol] 100 mg/dL High Negative [facility] Comment on above: Order Comment: Reaso n for Exam Chronic kidney disease, stage III (moderate);Charly hy kid w cr Name Collection Type:: Clean-Voided Midstream Performed By: #### P TH, RENAL, MG, [id number], URIC, CBCNO, JAVIER, FE and TIBC #### [address] Renal Function Panelon 02-24 Albumin [Mass/Vol] 4.2 g/dL Normal 3.5-5.7 [facility] Comment on above: Order Comment: Reaso n for Exam Chronic kidney disease, stage III (moderate);Charly hy kid w cr Performed By: #### P TH, RENAL, MG, [id number], URIC, CBCNO, JAVIER, FE and TIBC #### [place] [address] [place] GFR/1.73 sq M.predicted MDRD (S/P/Bld) [Vol rate/Area] 41.634 mL/min/{1.73_m2} Normal [facility] Comment on above: Order Comment: Reaso n for Exam Chronic kidney disease, stage III (moderate);Charly hy kid w cr Performed By: #### P TH, RENAL, MG, [id number], URIC, CBCNO, JAVIER, FE and TIBC #### [facility] [address] Serum or plasma anion gap de terminationOrdered By: Theo Vivian on 02-25-2024 Anion gap [Moles/Vol] 11.9 mmol/L Normal 6.0-15.0 [facility] Comment on above: Order Comment: Reaso n for Exam Chronic kidney disease, stage III (moderate);Charly hy kid w cr Performed By: #### P TH, RENAL, MG, [id number], URIC, CBCNO, JAVIER, FE and TIBC #### [address] Sodium [Moles/volume] in Ser um or PlasmaOrdered By: Theo Vivian on 02-25-2024 Sodium [Moles/Vol] 137 mmol/L Normal 136-145 [facility] Comment on above: Order Comment: Reaso n for Exam Chronic kidney disease, stage III (moderate);Charly hy kid w cr Performed By: #### P TH, RENAL, MG, [id number], URIC, CBCNO, JAVIER, FE and TIBC #### [address] Specific gravity Test strip (U) [Rel density]Ordered By: Theo Vivian on 02-25-2024 Specific gravity (U) [Rel density] 1.018 1.001-1.03 0 [facility] Urate [Mass/volume] in Serum or PlasmaOrdered By: Theo Vivian on 02-25-2024 Urate [Mass/Vol] 5.7 mg/dL Normal 4.4-7.[address] [facility] Comment on above: Order Comment: Reaso n for Exam Chronic kidney disease, stage III (moderate);Charly hy kid w cr Performed By: #### P TH, RENAL, MG, [id number], URIC, CBCNO, JAVIER, FE and TIBC #### [facility] [address] Urea nitrogen [Mass/volume] in Serum or PlasmaOrdered By: Theo Thakkar on 02-25-2024 Urea nitrogen [Mass/Vol] 23 mg/dL Normal 12-23 [facility] Comment on above: Order Comment: Reaso n for Exam Chronic kidney disease, stage III (moderate);Charly hy kid w cr Performed By: #### P TH, RENAL, MG, [id number], URIC, CBCNO, JAVIER, FE and TIBC #### [facility] [address] Urine Cultureon 02-25-2024 Bacteria identified Cx Nom (U) ORGANISM: Staphylococcus aureus (O:STAAUR) [place] Count >100,000 Aerobic ROSLYN Charge (PCMIC38) SUSCEPTIBILITY [...] RESISTANT TO ALL B-LACTAM DRUGS. PERFORMED BY: [place] [address] PATHOLOGIST PLASTIC STRAIGHTENING ROLL OPERATOR ANA HURT M.D. Normal [facility] Comment on above: Performed By: #### P TH, RENAL, MG, [id number], URIC, CBCNO, JAVIER, FE and TIBC #### [facility] [address] Urine appearanceOrdered By: Theo Thakkar on 02-25-2024 Appearance (U) Cloudy Critically abnormal Clear [facility] Comment on above: Order Comment: Reaso n for Exam Chronic kidney disease, stage III (moderate);Charly [place] w cr Name Collection Type:: Clean-Voided Midstream Performed By: #### P TH, RENAL, MG, [id number], URIC, CBCNO, JAVIER, FE and TIBC #### [facility] [address] [place] [address] [facility] Urine culture routineOrdered By: Theo Thakkar on 02-25-2024 Bacteria identified Cx Nom (U) Staphylococcus aureus Abnormal [facility] Urine protein/creatinine rat ioOrdered By: Theo Thakkar on 02-25-2024 Protein/Creatinine (U) [Ratio] 786 mg/g{Cre} High 0-200 [facility] Urobilinogen Test strip (U) [Mass/Vol]Ordered By: Theo Thakkar on 02-25-2024 Urobilinogen (U) [Mass/Vol] Normal mg/dL Normal [facility] Vitamin D 25 Hydroxy Totalon 02-25-2024 Vitamin D 25 Hydroxy Total 60.3 ng/mL Normal 30-100 [facility] Comment on above: Order Comment: [...] practice guideline. JCEM. 2010; 96(7):1911-30. PERFORMED BY: [facility] [address] [place] [address] PATHOLOGIST PLASTIC STRAIGHTENING ROLL OPERATOR ANA HURT M.D. Performed By: #### P TH, RENAL, MG, [id number], URIC, CBCNO, JAVIER, FE and TIBC #### [facility] [address] [place] [address] [facility] Vitamin D+Metabolites [Mass/ volume] in Serum or PlasmaOrdered By: Theo Thakkar on 02-25-2024 Vitamin D+Metabolites [Mass/Vol] 60.3 ng/mL 30-100 [facility] Comment on above: VITAMIN D STATUS 25( [place])VITAMIN D RANGE (ng/mL) Deficient <20 Insufficient 20 to <30Sufficient 30 to 100Reference: Grecia MF,Wayne NC, John VILLEGAS, et al. Evaluation,treatment, and prevention of vitamin D deficiency; an Endocrine Society clinical practice guideline. JCEM. 2010; 96(7):1911-30. pH of Urine by Test stripOrd ered By: Theo Thakkar on 02-25-2024 pH (U) 6.0 [pH] Normal 5.0-9.0 [facility] Comment on above: Order Comment: Reaso n for Exam Chronic kidney disease, stage III (moderate);Charly hy kid w cr Name Collection Type:: Clean-Voided Midstream Performed By: #### P TH, RENAL, MG, [id number], URIC, CBCNO, JAVIER, FE and TIBC #### [facility] [address] Office Visiton 01-12-2024 Follow-up visit [id number] Dianne Broussard 1945 Date Provider Department Center 01/12/[address] [facility] SURG Second Fl Family History Problem Relation Age of Onset Hypertension Mother Diabetes Father Family Status - Relation Status Age at Mother Father Level of Service:17531 [place] POSTOP FOLLOW UP VISIT RELATED TO ORIGINAL PX Reason for Visit and Comments: Post-op [483] - Patient is here for a 4-[address] madera Normal [facility] Office Visiton 12-02-2023 Follow-up visit [id number] Dianne Broussard 1945 Date Provider Department Center 12/02/2023 Fabio-VASILE MADERA [facility] ONC DCC Family History Problem Relation Age of Onset Hypertension Mother Diabetes Father Family Status - Relation Status Age at Mother Father Level of Service:15474 [place] POSTOP FOLLOW UP VISIT RELATED TO ORIGINAL PX Reason for Visit and Comments: Post-op [483] Normal [facility] BASIC METABOLIC PANELon 06- Anion gap [Moles/Vol] 12 mmol/L Normal 7-20 [facility] Comment on above: Performed By: #### L [id number] #### [facility] [address] [place] [address] Calcium [Mass/Vol] 9.3 mg/dL Normal 8.6-10.3 [facility] Comment on above: Performed By: #### L [id number] #### [facility] ([facility]) [address] [place] [address] Chloride [Moles/Vol] 104 mmol/L Normal 98-107 [facility] Comment on above: Performed By: #### L [id number] #### [facility] [address] [place] [address] CO2 [Moles/Vol] 23 mmol/L Normal 21-31 [facility] Comment on above: Performed By: #### L [id number] #### [facility] ([facility]) [address] [place] [address] Creatinine [Mass/Vol] 1.51 mg/dL High 0.70-1.30 [facility] Comment on above: Performed By: #### L [id number] #### [facility] ([facility]) [address] [place] [address] GLOMERULAR FILTRATION RATE ML/MIN/1.73 SQ M.PREDICTED 47.0 mL/min/1.73m*2 Low >60.0 [facility] Comment on above: Result Comment: [facility]???s estimated glomerular filtration rate (eGFR) will no [...] group of individuals. Performed By: #### L [id number] #### [facility] ([facility]) [address] [place] [address] Glucose [Mass/Vol] 128 mg/dL High 70-100 [facility] Comment on above: Performed By: #### L [id number] #### [facility] ([facility]) [address] [place] [address] Potassium [Moles/Vol] 4.6 mmol/L Normal 3.5-5.1 [facility] Comment on above: Performed By: #### L [id number] #### [facility] ([facility]) [address] [place] [address] Sodium [Moles/Vol] 134 mmol/L Low 136-145 [facility] Comment on above: Performed By: #### L [id number] #### [facility] ([facility]) [address] [place] [address] Urea nitrogen [Mass/Vol] 25 mg/dL Normal 7-25 [facility] Comment on above: Performed By: #### L [id number] #### [facility] ([facility]) [address] [place] [address] UREA NITROGEN/CREATININE (MASS RATIO) IN SER/PLAS 16.6 Normal [facility] Comment on above: Performed By: #### L [id number] #### [facility] ([facility]) [address] [place] [address] CBCon 11-18-2023 Erythrocyte distribution width (RBC) [Ratio] 13.4 % Normal 11.5-15.0 [facility] Comment on above: Performed By: #### L [id number] #### [facility] ([facility]) [address] [place] [address] ERYTHROCYTE MEAN CORPUSCULAR HEMOGLOBIN CONCENTRATION (G/DL) BY AUTOMATED 33.3 g/dL Normal 32.0-35.0 [facility] Comment on above: Performed By: #### L [id number] #### [facility] ([facility]) [address] [place] [address] Hematocrit (Bld) [Volume fraction] 35.1 % Low 39.0-55.0 [facility] Comment on above: Performed By: #### L [id number] #### [facility] [address] [place] [address] Hemoglobin (Bld) [Mass/Vol] 11.7 g/dL Low 13.0-17.0 [facility] Comment on above: Performed By: #### L [id number] #### [facility] [address] [place] [address] MCH (RBC) [Entitic mass] 30.5 pg Normal 27.0-33.0 [facility] Comment on above: Performed By: #### L [id number] #### [facility] ([facility]) [address] [place] [address] MCV (RBC) [Entitic vol] 91.6 fL Normal 82.0-98.0 [facility] Comment on above: Performed By: #### L [id number] #### [facility] ([facility]) [address] [place] [address] PLATELETS (10*3/UL) IN BLOOD AUTOMATED COUNT 270 10*3/uL Normal 150-400 [facility] Comment on above: Performed By: #### L [id number] #### [facility] ([facility]) [address] [place] [address] RBC (Bld) [#/Vol] 3.83 10*6/uL Low 4.20-5.[address] [facility] Comment on above: Performed By: #### L [id number] #### [facility] ([facility]) [address] [place] [address] WBC (Bld) [#/Vol] 14.40 10*3/uL High 4.00-10.60 [facility] Comment on above: Performed By: #### L [id number] #### [facility] ([facility]) [address] [place] [address] DSon 11-18-2023 DS Admission Admitted 11/17/2023 for [...] Commonly known as: Lioresal ergocalciferol 1.25 MG (57678 Units) capsule Commonly known as: Vitamin D-2 gabapentin 100 mg capsule Commonly known as: Neurontin pravastatin 10 mg tablet Commonly known as: Pravachol valsartan 80 mg tablet Commonly known as: Diovan varenicline 0.5 mg tablet Commonly known as: Chantix STOP taking these medications HYDROcodone-acetaminophen 7.5-325 mg tablet Commonly known as: Nicolaus Where to Get Your Medications These medications were sent to [facility] - [place], [place] - [address] [place] [address] oxyCODONE 5 mg immediate release tablet tiZANidine [...] Dr. Madera in about 2 weeks, Call [phone] (Joellen) or [phone] (Dr. Madera) if not already scheduled, Vasile Madera MD Diet Continue on the same type of diet and foods as you were eating before your admission. Drink plenty of water. Allergies Ezetimibe and Szbicuc-njl-pxn reductase inhibitors Hospital Course Patient was admitted [...] is performed under the ED CLIA certificate #[id number]. Nutrition Screen Issues Requiring Follow-Up none Outpatient Follow-Up No future appointments. Test Results Pending At Discharge Vasile Madera MD [facility] 30on 11-17-2023 30 The patient is Moder ately Stable - Low risk of patient condition declining or worsening The patient's goals for the shift include pain control The clinical goals for the shift include comfort Problem: Pain - Adult Goal: Verbalizes/displays adequate comfort level or baseline comfort level Outcome: Progressing Problem: Safety - Adult Goal: Free from fall injury Outcome: Progressing Normal [facility] HPon 11-17-2023 HP H&P reviewed. The pa diane was examined and there are no changes to the H&P. Bilateral lumbar decompression - for synovial cyst and for lateral recess stenosis. Vasile Madera MD [facility] OPNOTEon 11-17-2023 OPNOTE Date: 11/17/2023 Loca tion: 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] * Lumbar stenosis with neurogenic claudication [M48.062] Procedures L3-L4 Synovial Cyst Resection, Left L4-L5 Lateral Recess Decompression, and 13279 - [place] L[place]ER[place] FACETECTOMY & FORAMOTOMY 1 VRT SGM LUMBAR L5 Foraminal Decompression 77035 - [place] FACETECTOMY&FORAMOT 1 VRT SGM EA ADDL SGM [place] BX/EXC ISPI JUAN JOSE IDRL XMED LUMBAR [79286] Right side L3 hemilaminectomy and resection of [...] Drains: * None in log * Staff: Rotary Rock Drilling Machine Operator: Kd Lagos RN Relief Scrub: Silke Henry, FELIX Scrub Person: Breanne White CST Public Relations Writer: Bernie Jimenes RN Indications: Yesenia Broussard is [...] scrubbed for the entire procedure. Vasile Madera [facility] OPNOTE L3-L4 Synovial Cyst Resection, Left L4-L5 Lateral Recess Decompression, and (B), L5 Foraminal Decompression (R) Operative Note Date: 11/17/2023 Location: 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] * Lumbar stenosis with neurogenic claudication [M48.062] Procedures L3-L4 Synovial Cyst Resection, Left L4-L5 Lateral Recess Decompression, and 56629 - [place] FACETECTOMY & FORAMOTOMY 1 VRT SGM LUMBAR L5 Foraminal Decompression 31828 - [place] FACETECTOMY&FORAMOT 1 VRT SGM EA ADDL SGM [place] BX/EXC ISPI JUAN JOSE IDRL XMED LUMBAR [23620] Right side L3 hemilaminectomy and resection of [...] Drains: * None in log * Staff: [employer] Rock Drilling Machine Operator: Kd Lagos RN Relief Scrub: Silke Henry CST Scrub Person: Breanne White CST Public Relations Writer: Bernie Jimenes RN Indications: Yesenia Broussard is [...] with Bovie (more content not included)... Normal [facility] POCT GLUCOSE METER UNSOLICIT ED RESULTSon 11-17-2023 Glucose [Mass/Vol] 80 mg/dL Normal 70-105 [facility] Comment on above: Order Comment: Waive d Testing in the ED is performed under the ED CLIA certificate #[id number]. Result Comment: epaw low Performed By: #### L [id number] #### [facility] ([facility]) [address] [place] [address] Orders Onlyon 11-13-2023 Orders Only [id number] Dianne Broussard ld 1945 M Date Provider Department Center 11/13/2023 IMAN BURNETTE [facility] Family History Problem Relation Age of Onset Hypertension Mother Diabetes Father Family Status - Relation Status Age at Mother Father [facility] Orders Onlyon 11-10-2023 Orders Only [id number] Dianne Broussard ld 1945 M Date Provider Department Center 11/10/2023 TOM AGUIAR [facility] C Family History Problem Relation Age of Onset Hypertension Mother Diabetes Father Family Status - Relation Status Age at Mother Father [facility] [id number] 11-06-2023 [id number] SURGERY DATE:11/16 Medications to take Morning of [...] THE FOLLOWING ARE NOT AVAILABLE: An adult commercial relief driver over the age of 18, that [...] lenses. Do not wear perfume, make-up, nail palestinian, or lotions on the day of your [...] need to make any changes, please call [phone]. Notify your surgeon if you develop any illness such as a cold, cough, fever, sore throat or vomiting between now and your surgery. Thank you for entrusting us with your care. [facility] Surgical Services Team Normal [facility] APTTon 11-05-2023 ACTIVATED PARTIAL THROMBOPLASTIN TIME IN PPP BY COAGULATION ASSAY 24.3 Seconds Low 25.0-35.0 [facility] Comment on above: Result Comment: Clin ical significance of the APTT is questionable in the presence of heparin. Performed By: #### L [id number] #### [facility] [address] [place] [address] BASIC METABOLIC PANELon Anion gap [Moles/Vol] 14 mmol/L Normal 7-20 [facility] Comment on above: Performed By: #### L [id number] #### [facility] ([facility]) [address] [place] [address] Calcium [Mass/Vol] 9.6 mg/dL Normal 8.6-10.3 [facility] Comment on above: Performed By: #### L [id number] #### [facility] ([facility]) [address] [place] [address] Chloride [Moles/Vol] 105 mmol/L Normal 98-107 [facility] Comment on above: Performed By: #### L [id number] #### [facility] ([facility]) [address] [place] [address] CO2 [Moles/Vol] 23 mmol/L Normal 21-31 [facility] Comment on above: Performed By: #### L [id number] #### [facility] ([facility]) [address] [place] [address] Creatinine [Mass/Vol] 1.93 mg/dL High 0.70-1.30 [facility] Comment on above: Performed By: #### L [id number] #### [facility] (BEAKER) [address] [place] [address] GLOMERULAR FILTRATION RATE ML/MIN/1.73 SQ M.PREDICTED 35.0 mL/min/1.73m*2 Low >60.0 [facility] Comment on above: Result Comment: The [facility]???s estimated glomerular filtration rate (eGFR) will no [...] group of individuals. Performed By: #### L [id number] #### [facility] ([facility]) [address] [place] [address] Glucose [Mass/Vol] 102 mg/dL High 70-100 [facility] Comment on above: Performed By: #### L [id number] #### [facility] ([facility]) [address] [place] [address] Potassium [Moles/Vol] 4.8 mmol/L Normal 3.5-5.1 [facility] Comment on above: Performed By: #### L [id number] #### [facility] ([facility]) [address] [place] [address] Sodium [Moles/Vol] 137 mmol/L Normal 136-145 [facility] Comment on above: Performed By: #### L [id number] #### [facility] ([facility]) [address] [place] [address] Urea nitrogen [Mass/Vol] 30 mg/dL High 7-25 [facility] Comment on above: Performed By: #### L [id number] #### [facility] ([facility]) [address] [place] [address] UREA NITROGEN/CREATININE (MASS RATIO) IN SER/PLAS 15.5 Normal [facility] Comment on above: Performed By: #### L [id number] #### [facility] ([facility]) [address] [place] [address] CBC WITH AUTO DIFFERENTIALon 11-05-2023 Basophils (Bld) [#/Vol] 0.03 10*3/uL Normal 0.00-0.20 [facility] Comment on above: Performed By: #### L [id number] #### [facility] (BEAKER) [address] [place] [address] Basophils/100 WBC (Bld) 0.3 % Normal 0.0-1.0 [facility] Comment on above: Performed By: #### L [id number] #### [facility] [address] [place] [address] Eosinophils (Bld) [#/Vol] 0.13 10*3/uL Normal 0.00-0.50 [facility] Comment on above: Performed By: #### L [id number] #### [facility] ([facility]) [address] [place] [address] Eosinophils/100 WBC (Bld) 1.3 % Normal 0.0-6.0 [facility] Comment on above: Performed By: #### L [id number] #### [facility] ([facility]) [address] [place] [address] Erythrocyte distribution width (RBC) [Ratio] 13.7 % Normal 11.5-15.0 [facility] Comment on above: Performed By: #### L [id number] #### [facility] ([facility]) [address] [place] [address] ERYTHROCYTE MEAN CORPUSCULAR HEMOGLOBIN CONCENTRATION (G/DL) BY AUTOMATED 32.0 g/dL Normal 32.0-35.0 [facility] Comment on above: Performed By: #### L [id number] #### [facility] [address] [place] [address] Hematocrit (Bld) [Volume fraction] 40.9 % Normal 39.0-55.0 [facility] Comment on above: Performed By: #### L [id number] #### [facility] [address] [place] [address] Hemoglobin (Bld) [Mass/Vol] 13.1 g/dL Normal 13.0-17.0 [facility] Comment on above: Performed By: #### L [id number] #### [facility] (BEAKER) [address] [place] [address] Immature granulocytes (Bld) [#/Vol] 0.03 10*3/uL Normal 0.00-0.20 [facility] Comment on above: Performed By: #### L [id number] #### [facility] (BEAKER) [address] [place] [address] Immature granulocytes/100 WBC (Bld) 0.3 % Normal 0.0-1.0 [facility] Comment on above: Performed By: #### L [id number] #### [facility] [address] [place] [address] Lymphocytes (Bld) [#/Vol] 1.12 10*3/uL Low 1.20-4.00 [facility] Comment on above: Performed By: #### L [id number] #### [facility] (BEAKER) [address] [place] [address] Lymphocytes/100 WBC (Bld) 11.2 % Low 20.0-45.0 [facility] Comment on above: Performed By: #### L [id number] #### [facility] (BEAKER) [address] [place] [address] MCH (RBC) [Entitic mass] 29.8 pg Normal 27.0-33.0 [facility] Comment on above: Performed By: #### L [id number] #### [facility] (BEAKER) [address] [place] [address] MCV (RBC) [Entitic vol] 93.2 fL Normal 82.0-98.0 [facility] Comment on above: Performed By: #### L [id number] #### [facility] (BEAKER) [address] [place] [address] Monocytes (Bld) [#/Vol] 0.85 10*3/uL Normal 0.10-1.00 [facility] Comment on above: Performed By: #### L [id number] #### [facility] ([facility]) [address] [place] [address] Monocytes/100 WBC (Bld) 8.5 % Normal 5.0-12.0 [facility] Comment on above: Performed By: #### L [id number] #### [facility] ([facility]) [address] [place] [address] Neutrophils (Bld) [#/Vol] 7.85 10*3/uL High 1.60-7.60 [facility] Comment on above: Performed By: #### L [id number] #### [facility] ([facility]) [address] [place] [address] Neutrophils/100 WBC (Bld) 78.4 % High 40.0-72.0 [facility] Comment on above: Performed By: #### L [id number] #### [facility] ([facility]) [address] [place] [address] NRBC (PER 100 WBCS) BY AUTOMATED COUNT 0.0 % Normal 0 [facility] Comment on above: Performed By: #### L [id number] #### [facility] ([facility]) [address] [place] [address] PLATELETS (10*3/UL) IN BLOOD AUTOMATED COUNT 321 10*3/uL Normal 150-400 [facility] Comment on above: Performed By: #### L [id number] #### [facility] ([facility]) [address] [place] [address] RBC (Bld) [#/Vol] 4.39 10*6/uL Normal 4.20-5.[address] [facility] Comment on above: Performed By: #### L [id number] #### [facility] [address] [place] [address] WBC (Bld) [#/Vol] 10.01 10*3/uL Normal 4.00-10.60 [facility] Comment on above: Performed By: #### L [id number] #### [facility] ([facility]) [address] [place] [address] Consulton 11-05-2023 Consult [id number] Dianne Broussard 1945 M Date Provider Department Center 11/05/2023 Cassia-JOELLEN BENÍTEZ [facility] SURG Second Fl Family History Problem Relation Age of Onset Hypertension Mother Diabetes Father Family Status - Relation Status Age at Mother Father Level of Service:39018 [place] OFFICE/OUTPATIENT ESTABLISHED MOD MDM 30 MIN Reason for Visit and Comments: Pre-op Exam [[id number]] - pre op sugery 11/16 L3-4 synovial cyst resection, L4-5 left side lateral recess decompression and right side L5 foraminal decompression Normal [facility] HPon 11-05-2023 HP SUBJECTIVE: Chief complaint: Preoperative [...] He saw pain management and is taking Nicolaus, which helps some. Did physical therapy in [...] , Rfl: ergocalciferol (Vitamin D-2) 1.25 MG (10804 Units) capsule, Take 1,250 mcg by mouth 1 (one) time per week., Disp: , Rfl: gabapentin (Neurontin) 100 mg capsule, Take 100 mg by mouth at bedtime., Disp: , Rfl: HYDROcodone-acetaminophen (Nicolaus) 7.5-325 mg tablet, TAKE 1 TABLET BY [...] Reactions Ezetimibe GI intolerance Other reaction(s): Nausea/vomiting Nkciamj-Adh-Huc Reductase Inhibitors Other Muscle/Joint Pain Other Reaction(s): [...] Hip flexor (more content not included)... Normal [facility] Labon 11-05-2023 Lab [id number] Dianne Broussard 1945 M Date Provider Department Center 11/05/2023 [address]-[facility] OPD LAB RESOURCE [facility] OPD NE Medical C Family History Problem Relation Age of Onset Hypertension Mother Diabetes Father Family Status - Relation Status Age at Mother Father Normal [facility] MRSA/MSSA DNA NASALon 2023 MRSA DNA Negative Normal Negative [facility] Comment on above: Order Comment: Testi ng [...] preclude nasal colonization. Performed By: #### L [id number] #### [facility] ([employer]) [address] [place] [address] MSSA DNA Negative Normal Negative [facility] Comment on above: Order Comment: Amelia ng methodology is an automated qualitative in [...] preclude nasal colonization. Performed By: #### L [id number] #### [facility] ([facility]) [address] [place] [address] PROTIME-INRon 11-05-2023 INR IN PPP BY COAGULATION ASSAY 1.01 Normal 0.90-1.10 [facility] Comment on above: Result Comment: ACCC P [...] 1995;108:[id number]. Performed By: #### L [id number] #### [facility] ([employer]) [address] [place] [address] PROTHROMBIN TIME (PT) IN PPP BY COAGULATION ASSAY 13.3 Seconds Normal 12.3-14.8 [facility] Comment on above: Performed By: #### L [id number] #### [facility] ([facility]) [address] [place] [address] TYPE AND SCREENon 11-05-2023 AB SCREEN Negative Normal [facility] Comment on above: Performed By: #### L [id number] #### [facility] [address] [place] [address] ABO group Nom (Bld) A Normal [facility] Comment on above: Performed By: #### L [id number] #### [facility] ([facility]) [address] [place] [address] RH TYPE IN BLOOD Positive Normal [facility] Comment on above: Performed By: #### L [id number] #### [facility] ([facility]) [address] [place] [address] Lab Reportson 10-04-2023 Lab Reports [id number] Normal [facility] Alanine aminotransferase [En zymatic activity/volume] in Serum or PlasmaOrdered By: Shaikh Dotty on 10-01-2023 ALT [Catalytic activity/Vol] 13 U/L 7-52 [facility] Albumin [Mass/volume] in Ser um or Plasma by Bromocresol green (BCG) dye binding methoOrdered By: Shaikh Dotty on 10-01-2023 Albumin BCG dye [Mass/Vol] 4.2 g/dL 3.5-5.7 [facility] Alkaline phosphatase [Enzyma tic activity/volume] in Serum or PlasmaOrdered By: Shaikh Dotty on 10-01-2023 ALP [Catalytic activity/Vol] 58 U/L 34-104 [facility] Aspartate aminotransferase [ Enzymatic activity/volume] in Serum or PlasmaOrdered By: Shaikh Dotty on 10-01-2023 AST [Catalytic activity/Vol] 13 U/L 13-39 [facility] Basophils Auto (Bld) [#/Vol] Ordered By: Shaikh Dotty on 10-01-2023 Basophils (Bld) [#/Vol] 0.0 10*3/uL 0.0-0.2 [facility] Basophils/100 WBC Auto (Bld) Ordered By: Shaikh Dotty on 10-01-2023 Basophils/100 WBC (Bld) 0.4 % . [facility] Bilirubin.total [Mass/volume ] in Serum or PlasmaOrdered By: Shaikh Dotty on 10-01-2023 Bilirubin [Mass/Vol] 0.3 mg/dL 0.3-1.0 [facility] Calcium [Mass/volume] in Ser um or PlasmaOrdered By: Shaikh Dotty on 10-01-2023 Calcium [Mass/Vol] 9.4 mg/dL 8.6-10.3 [facility] Carbon dioxide, total [Moles /volume] in Serum or PlasmaOrdered By: Shaikh Dotty on 10-01-2023 CO2 [Moles/Vol] 27.0 mmol/L 21.0-31.[address] [facility] Chloride [Moles/volume] in S jaime or PlasmaOrdered By: Shaikh Dotty on 10-01-2023 Chloride [Moles/Vol] 108 mmol/L 98-107 [facility] Cholesterol [Mass/volume] in Serum or PlasmaOrdered By: Shaikh Dotty on 10-01-2023 Cholesterol [Mass/Vol] 135 mg/dL 140-200 [facility] Comment on above: Chol less than 200 m g/dl low riskChol 201-239 mg/dl borderline riskChol 240 mg/dl and greater high risk Cholesterol in LDL Calc [Mas s/Vol]Ordered By: Shaikh Dotty on 10-01-2023 Cholesterol in LDL [Mass/Vol] 81 mg/dL 0-100 [facility] Comment on above: LDL ATP III CLASSIFI CATIONLDL less than 100 mg/dL OptimalLDL 100-129 mg/dL Near or above optimalLDL 130-159 mg/dL Borderline highLDL 160-189 mg/dL HighLDL greater than 189 mg/dL Very high Cholesterol in VLDL Calc [Ma ss/Vol]Ordered By: Shaikh Dotty on 10-01-2023 Cholesterol in VLDL [Mass/Vol] 16 mg/dL [facility] Creatinine [Mass/volume] in Serum or PlasmaOrdered By: Shaikh Dotty on 10-01-2023 Creatinine [Mass/Vol] 1.89 mg/dL 0.70-1.30 [facility] Creatinine [Mass/volume] in UrineOrdered By: Shaikh Dotty on 10-01-2023 Creatinine (U) [Mass/Vol] 164.0 mg/dL [facility] Comment on above: No reference range e stablished Eosinophils Auto (Bld) [#/Vo l]Ordered By: Shaikh Dotty on 10-01-2023 Eosinophils (Bld) [#/Vol] 0.2 10*3/uL 0.0-0.45 [facility] Eosinophils/100 WBC Auto (Bl d)Ordered By: Shaikh Dotty on 10-01-2023 Eosinophils/100 WBC (Bld) 2.7 % . [facility] Erythrocyte distribution wid th Auto (RBC) [Ratio]Ordered By: Shaikh Dotty on 10-01-2023 Erythrocyte distribution width (RBC) [Ratio] 14.9 % 12.0-14.8 [facility] Globulin Calc (S) [Mass/Vol] Ordered By: Shaikh Dotty on 10-01-2023 Globulin (S) [Mass/Vol] 2.5 g/dL [facility] Glucose [Mass/volume] in Ser um or PlasmaOrdered By: Shaikh Dotty on 10-01-2023 Glucose [Mass/Vol] 115 mg/dL 70-100 [facility] Comment on above: ADA recommended refe rence rangeRandom Glucose Reference Range is dependent on time and content of last meal. Glucose of more than 200 mg/dL in a nonstressed, ambulatory subject supports the diagnosis of Diabetes Mellitus. Glucose mean value [Mass/vol ume] in Blood Estimated from glycated hemoglobinOrdered By: Shaikh Dotty on 10-01-2023 Average glucose Estimated from glycated hemoglobin (Bld) [Mass/Vol] 128 mg/dL [facility] Hematocrit Auto (Bld) [Volum e fraction]Ordered By: Shaikh Dotty on 10-01-2023 Hematocrit (Bld) [Volume fraction] 37.2 % 38.8-50.0 [facility] Hemoglobin A1c percentageOrd ered By: Shaikh Dotty on 10-01-2023 HbA1c (Bld) [Mass fraction] 6.1 % 4.3-5.6 [facility] Comment on above: Increased risk for d iabetes: 5.7 - 6.4diabetes: >6.4glycemic control for adults with diabetes: <7.0 Hemoglobin [Mass/volume] in BloodOrdered By: Shaikh Dotty on 10-01-2023 Hemoglobin (Bld) [Mass/Vol] 12.3 g/dL 13.0-17.0 [facility] Leukocytes [#/volume] correc diana for nucleated erythrocytes in Blood by Automated counOrdered By: Shaikh Dotty on 10-01-2023 WBC corrected for nucl RBC Auto (Bld) [#/Vol] 8.3 10*3/uL 4.1-10.5 [facility] Lymphocytes Auto (Bld) [#/Vo l]Ordered By: Shaikh Dotty on 10-01-2023 Lymphocytes (Bld) [#/Vol] 1.3 10*3/uL 1.00-4.8 [facility] Lymphocytes/100 WBC Auto (Bl d)Ordered By: Shaikh Dotty on 10-01-2023 Lymphocytes/100 WBC (Bld) 16.1 % . [facility] MCH Auto (RBC) [Entitic mass ]Ordered By: Shaikh Dotty on 10-01-2023 MCH (RBC) [Entitic mass] 30.5 pg 27.5-35.2 [facility] MCHC Auto (RBC) [Mass/Vol]Or dered By: Shaikh Dotty on 10-01-2023 MCHC (RBC) [Mass/Vol] 33.1 g/dL 32.5-35.6 [facility] MCV Auto (RBC) [Entitic vol] Ordered By: Shaikh Dotty on 10-01-2023 MCV (RBC) [Entitic vol] 92.2 fL 83.5-101 [facility] Monocytes Auto (Bld) [#/Vol] Ordered By: Shaikh Dotty on 10-01-2023 Monocytes (Bld) [#/Vol] 0.6 10*3/uL 0.0-0.8 [facility] Monocytes/100 WBC Auto (Bld) Ordered By: Shaikh Dotty on 10-01-2023 Monocytes/100 WBC (Bld) 7.6 % . [facility] Neutrophils Auto (Bld) [#/Vo l]Ordered By: Shaikh Dotty on 10-01-2023 Neutrophils (Bld) [#/Vol] 6.1 10*3/uL 1.8-7.7 [facility] Neutrophils/100 WBC Auto (Bl d)Ordered By: Shaikh Dotty on 10-01-2023 Neutrophils/100 WBC (Bld) 73.2 % . [facility] No Panel InformationOrdered By: Shaikh Dotty on 10-01-2023 Estimated GFR (CKD-EPI) 35.887 mL/Min [facility] Creatinine Clearance (Chem N/A [facility] Nucleated erythrocytes [Pres ence] in Blood by Automated countOrdered By: Shaikh Dotty on 10-01-2023 Nucleated RBC Auto Ql (Bld) 0.1 /100{WBC} 0-0.5 [facility] Orders Onlyon 10-01-2023 Orders Only [id number] Dianne Broussard ld 1945 M Date Provider Department Center 10/01/2023 DONOVAN MONTAGUE ONC DCC Family History Problem Relation Age of Onset Hypertension Mother Diabetes Father Family Status - Relation Status Age at Mother Father Normal [facility] Platelet mean volume Auto (B ld) [Entitic vol]Ordered By: Shaikh Dotty on 10-01-2023 Platelet mean volume (Bld) [Entitic vol] 8.7 fL 6.6-10.1 [facility] Platelets Auto (Bld) [#/Vol] Ordered By: Shaikh Dotty on 10-01-2023 Platelets (Bld) [#/Vol] 270 10*3/uL 150-450 [facility] Potassium [Moles/volume] in Serum or PlasmaOrdered By: Shaikh Dotty on 10-01-2023 Potassium [Moles/Vol] 4.9 mmol/L 3.5-5.1 [facility] Prostate specific Ag [Mass/v olume] in Serum or PlasmaOrdered By: Barbara Johnston on 10-01-2023 Prostate specific Ag [Mass/Vol] 0.420 ng/mL 0.000-4.00 0 [facility] Comment on above: Serial tumor marker results determined by assays using different manufacturers or methods may not be comparable.[facility] book cleaner and method:compareit4me DXI, CHEMILUMINESCENT IMMUNOASSAY. Protein [Mass/volume] in Ser um or PlasmaOrdered By: Shaikh Dotty on 10-01-2023 Protein [Mass/Vol] 6.7 g/dL 6.4-8.9 [facility] Protein [Mass/volume] in Uri neOrdered By: Shaikh Dotty on 10-01-2023 Protein (U) [Mass/Vol] 124 mg/dL 0-9 [facility] RBC Auto (Bld) [#/Vol]Ordere d By: Shaikh Dotty on 10-01-2023 RBC (Bld) [#/Vol] 4.04 10*6/uL 3.90-5.60 [facility] Serum or plasma albumin/glob ulin mass ratioOrdered By: Shaikh Dotty on 10-01-2023 Albumin/Globulin [Mass ratio] 1.7 {ratio} [facility] Serum or plasma anion gap de terminationOrdered By: Shaikh Dotty on 10-01-2023 Anion gap [Moles/Vol] 9.9 mmol/L 6.0-15.0 [facility] Serum or plasma high density lipoprotein (HDL) cholesterol measurementOrdered By: Shaikh Dotty on 10-01-2023 Cholesterol in HDL [Mass/Vol] 38 mg/dL 23-92 [facility] Comment on above: HDL CHOL ATP-III CLA SSIFICATION Cardiovascular RiskHDL > or equal to 60 mg/dL LOWHDL < 40 mg/dL HIGH Serum or plasma total choles terol/high density lipoprotein (HDL) cholesterol mass ratOrdered By: Shaikh Dotty on 10-01-2023 Cholesterol.total/Chol esterol in HDL [Mass ratio] 3.6 {ratio} <5.0 [facility] Sodium [Moles/volume] in Ser um or PlasmaOrdered By: Shaikh Dotty on 10-01-2023 Sodium [Moles/Vol] 140 mmol/L 136-145 [facility] Thyrotropin [Units/volume] i n Serum or PlasmaOrdered By: Shaikh Dotty on 10-01-2023 TSH Qn 1.61 m[IU]/L 0.45-5.33 [facility] Triglyceride [Mass/volume] i n Serum or PlasmaOrdered By: Shaikh Dotty on 10-01-2023 Triglyceride [Mass/Vol] 80 mg/dL 0-149 [facility] Comment on above: TRIG ATP III CLASSIF ICATIONTRIG less than 150 mg/dL NormalTRIG 150-199 mg/dL Borderline highTRIG 200-500 mg/dL High TRIG greater than 500 mg/dL Very highStandard traceable to the Center for Disease Conrtrol and Prevention (CDC) test method. Urea nitrogen [Mass/volume] in Serum or PlasmaOrdered By: Shaikh Dotty on 10-01-2023 Urea nitrogen [Mass/Vol] 33 mg/dL 7-25 [facility] WBC Auto (Bld) [#/Vol]Ordere d By: Shaikh Dotty on 10-01-2023 WBC (Bld) [#/Vol] 8.3 10*3/uL 4.1-10.5 [facility] Ambulatory Visit Summaryon 0 09-18-2023 Ambulatory Visit Summary HELENA YESENIA R :1945 Visit Date:09/18/2023 Ambulatory Visit Instructions Your Diagnosis Nocturia Erectile dysfunction BPH with urinary obstruction History of prostate cancer History of UTI Your Care Team Attending Physician - Barbara JOHNSTON MD Primary Care Physician - DOTTY MAK, This Is Your Medications List tadalafil (Cialis 20 mg Tab) Contact prescribing physician if questions or concerns acetaminophen-hydrocodone (Nicolaus 5/325 Tab) amlodipine (amLODIPine 5 mg Tab) [...] PRESTON MAK, Barbara Warner, URL When: Where: [address] [place] [address]- Medications What How Much When Instructions Unchanged tadalafil (Cialis 20 mg Tab) 1 Tablets By Mouth As Directed Do not exceed 20mg within 48 hours. Unchanged acetaminophen-hydrocodone (Nicolaus 5/ 325 Tab) By Mouth Every 6 [...] bladder diary (more content not included)... Normal [facility] Patient Educationon 09-18-19 Patient Education Urology [...] keep your urine pale yellow. ? Take kwey-fmp-jmrwlze or prescription medicines. ? Eat foods that are high in fiber, such as beans, whole grains, and fresh fruits and vegetables. ? Limit foods that are high in fat and processed sugars, such as fried or sweet foods. General instructions ? Take fsfy-bjs-znwrmsf and prescription medicines only as told by [...] muscles that help control urination. ? Take mpna-edq-mivrdke and prescription medicines only as told by your health care provider. ? Contact a health care provider if your symptoms do not improve or get worse. This information is not intended to replace advice given to you by your health care provider. Make sure you discuss any questions you have with your health care provider. Document Revised: 12/21/2020 Document Reviewed: 12/21/2020 [employer] Patient Education ? 2022 [employer] [facility] Urology Office/Clinic Noteon 09-18-2023 Urology Office/Clinic Note [...] Contact Information PRESTON MAK, Barbara Warner, URL [address] [place] [address]- Additional Instructions: 6 mos w/ PSA Patient Education Urinary Frequency, Adult I, Tabitha Saenz, personally scribed for Dr. Johnston on 09/18/2023 11:55:58. . Documentation recorded by the scribe, Tabitha Saenz, accurately reflects the services(s) I performed and decisions made by me. Authenticated by Dr. Johnston on 09/18/2023 11:59:13. Problem List/Past Medical History Ongoing Anxiety BPH with (more content not included)... Normal [facility] Comment on above: Result Comment: Elec tronically Signed By: Barbara JOHNSTON MD\.br\Date and Time Signed: 09/18/23 11:59 EDT\.br\Electronically Co-Signed By: Tabitha Saenz.br\Date and Time Co-Signed: 09/18/23 11:56 EDT Orders Onlyon 09-03-2023 Orders Only [id number] Dianne Broussard ld 1945 M Date Provider Department Center 09/03/2023 [id number], HISTORICAL Renees DCC Family History Problem Relation Age of Onset Hypertension Mother Diabetes Father Family Status - Relation Status Age at Mother Father Normal [facility] Office Visiton 09-02-2023 Follow-up visit [id number] Dianne Broussard mandeep 1945 M Date Provider Department Center 09/02/2023 VASILE DOMINGUEZ ONC MARVIN Family History Problem Relation Age of Onset Hypertension Mother Diabetes Father Family Status - Relation Status Age at Mother Father Level of Service:36932 LA OFFICE/OUTPATIENT NEW MODERATE MDM 45 MINUTES Reason for Visit and Comments: Consult [[id number]] - Low back pain consult Normal [facility] Orders Onlyon 08-28-2023 Orders Only [id number] Dianne Broussard ld 1945 M Date Provider Department Center 08/28/2023 VASILE DOMINGUEZ ONC DCC No family history on file Normal [facility] ECG 12 Leadon 08-18-2023 Normal sinus rhythm, right bundle branch block and left anterior fascicular block consistent with bifascicular block, abnormal ECG [facility] Work Phone: M Urineon 07-11-2023 Bacteria identified Cx Nom (U) [...] ROSLYN=mcg/m;(mg/L), S*=Predicted susceptible interp, R*=Predicted resistant interp Antibiotic ROSLYN Dilutn ROSLYN Interp Amoxicillin/ <=4/2 S Clavulanate Ampicillin <=2 CATRINA Ampicillin/ <=8/4 S Sulbactam Cefazolin <=8 S Ceftaroline <=0.5 S Ciprofloxacin 2 I Daptomycin <=1 S Gentamicin <=4 S Levofloxacin <=1 S Linezolid <=2 S Nitrofurantoin <=32 S Oxacillin <=0.25 S Penicillin 0.12 CATRNIA Rifampin <=1 S Tetracycline <=4 S Trimethoprim/ <=0.5/9.5 S Sulfa Vancomycin 1 S Performing Locations R1: This test was performed at: [facility] [address] [place] [address], [address]- , [place], [facility] Comment on above: Performed By: #### 2 [id number] ####[facility] [id number] [place] [address] Consultation Noteon 07-08-19 Consultation Note [id number]#[id number] [facility] Lab Reportson 07-08-2023 Lab Reports [id number]#[id number] [facility] Patient Educationon 07-07-19 Patient Education Urology [...] keep your urine pale yellow. ? Take dcdq-hpw-xpswqgx or prescription medicines. ? Eat foods that are high in fiber, such as beans, whole grains, and fresh fruits and vegetables. ? Limit foods that are high in fat and processed sugars, such as fried or sweet foods. General instructions ? Take dhbn-oqu-esrvali and prescription medicines only as told by [...] muscles that help control urination. ? Take zsdy-roa-bpmrbgy and prescription medicines only as told by your health care provider. ? Contact a health care provider if your symptoms do not improve or get worse. This information is not intended to replace advice given to you by your health care provider. Make sure you discuss any questions you have with your health care provider. Document Revised: 12/21/2020 Document Reviewed: 12/21/2020 [employer] Patient Education ? 2022 [employer]. [facility] Urology Office/Clinic Noteon 07-07-2023 Urology Office/Clinic Note [...] Information PRESTON MAK, Barbara Warner, URL [address] [place] [address]- Additional Instructions: 3 mos Patient Education Urinary Frequency, Adult Documentation recorded by the scribe Tabitha Saenz accurately reflects the services(s) I performed and decisions made (more content not included)... [facility] Comment on above: Result Comment: Elec tronically Signed By: CLAIRE JAMES PA-C\.br\Date and Time Signed: 07/07/23 10:08 EST\.br\Electronically Co-Signed By: Tabitha Saenz\.br\Date and Time Co-Signed: 07/07/23 09:50 EST NUCLEAR STRESS TESTon 2023 NUCLEAR STRESS TEST Interpreted By: Inge Dickerson and Beal Gina STUDY: MYOCARDIAL PERFUSION STRESS TEST WITH LEXISCAN Performing facility: [facility], [address] [place] [address], [address], [place] [id number] [facility] Provider: Sylvester Grayson DO, [facility] PCP: Dr. Agus STORM Supervising provider: Inge Dickerson MD INDICATION: HTN, Bilateral Carotid, Chest Pain HISTORY: Gender: M; Age: 77 y/o ; Height: HT 177.8 cm cm; Weight: WT 89.812 kg kg. CAD; High Cholesterol; Abnormal EKG; RBBB Previous AL; Family HX CAD; Chest Pain; COPD; PAD, CVA, Carotid Disease, CKD Currently smoking. Cardiac catheterization. PTCA 1990s RCA. COMPARISON: No comparison. ACCESSION NUMBER(S): [id number] ORDERING CLINICIAN: CHAIM GRAYSON TECHNIQUE: ONE DAY [...] Inge Dickerson 06/19/2023 11:20 AM Dictation workstation: [id number] [facility] CNOVon 06-12-2023 CNOV Office Visit (SPSLUH ) -- YESENIA BROUSSARD ([id number]) 1945 M Date Time Provider Department 06/12/23 11:00 AM KODI REYNOLDS During your visit today, we recorded the [...] heat Medications: See medication reconciliation list in [facility] MEDICATIONS: Hydrocodone, Gabapentin 2017 back surgery [...] 77-year-old male who recently moved from [place] to [place]. He reports longstanding history of back and [...] law suit/legal clai (more content not included)... [facility] ECG 12 Leadon 06-04-2023 Sinus rhythm, right bundle branch block, left axis deviation, abnormal ECG [facility] Work Phone: Lab Reportson 05-26-2023 Lab Reports [id number]#[id number] [facility] Lab Reportson 05-18-2023 Lab Reports [id number]#[id number] [facility] Physician Orderon 05-06-2023 Physician Order [id number]#[id number] [facility] C Urineon 04-25-2023 Bacteria identified Cx Nom [...] Locations R1: This test was performed at: [facility], [address] [place] [address], [facility] , , [facility] Comment on above: Performed By: #### 2 [id number] ####[place] [address] [facility] 04-22-2023 Screens [id number]#[id number] [facility] Screens [id number]#[id number] [facility] Ambulatory Visit Summaryon 1 06-21-2022 Ambulatory Visit Summary YESENIA BROUSSARD :1945 Visit Date:04/21/2023 Ambulatory Visit Instructions Your Diagnosis Nocturia UTI symptoms Erectile dysfunction Prostate cancer BPH with urinary obstruction Tests Performed Urnls Dip Stick Auto w/o Microscopy POC [id number] Your Care Team Attending Physician - CLAIRE JAMES PA-C Primary Care Physician - SHAIKH STORM MD This Is Your Medications List oxybutynin (oxybutynin 5 mg Tab) Contact prescribing physician if questions or concerns acetaminophen-hydrocodone (Nicolaus 5/325 Tab) amlodipine (amLODIPine 5 mg Tab) [...] CLAIRE JAMES PA-C Where: [facility] Patient Educationon 04-21-20 Patient Education Urology [...] these instructions at home: Medicines ? Take wpbv-yux-oouyszh and prescription medicines only as told by [...] include cig (more content not included)... [facility] Urology Office/Clinic Noteon 04-21-2023 Urology Office/Clinic [...] office.*No recent rad onc [facility] BPH *No BPH meds at this time* [...] 0.05mg qhs. Rx sent to [facility] in [place]. -Check electrolytes in 1 wk after starting [...] 50mg prn. Rx sent to [facility] in [place]. 4. Prostate cancer (C61: Malignant neoplasm of [...] obstruction (N4 (more content not included)... [facility] Comment on above: Result Comment: Elec tronically Signed By: CLAIRE JAMES PA-C\.br\Date and Time Signed: 04/21/23 09:33 EST\.br\Electronically Co-Signed By: Rosario Byrne\.br\Date and Time Co-Signed: 04/21/23 09:14 EST Creatinine [Mass/volume] in Serum or PlasmaOrdered By: Jose Martin Mchugh on 03-23-2023 Creatinine [Mass/Vol] 2.03 mg/dL 0.70-1.30 [facility] No Panel InformationOrdered By: Jose Martin Mchugh on 03-23-2023 Estimated GFR (CKD-EPI) 33.144 mL/Min [facility] Creatinine Clearance (Chem 34.29 [facility] Urea nitrogen [Mass/volume] in Serum or PlasmaOrdered By: Jose Martin Mchugh on 03-23-2023 Urea nitrogen [Mass/Vol] 35 mg/dL 7-25 [facility] Albumin [Mass/volume] in Ser um or Plasma by Bromocresol green (BCG) dye binding methoOrdered By: Teho Thakkar on 03-09-2023 Albumin BCG dye [Mass/Vol] 4.1 g/dL 3.5-5.7 [facility] Automated erythrocytes count in urine sediment (number/area)Ordered By: Theo Thakkar on 03-09-2023 RBC Auto (Urine sed) [#/Area] 5-9 [HPF] 0-4 [facility] Automated leukocytes count i n urine sediment (number/area)Ordered By: Theo Thakkar on 03-09-2023 WBC Auto (Urine sed) [#/Area] Innumerable [HPF] 0-4 [facility] Bilirubin Test strip Ql (U)O rdered By: Theo Thakkar on 03-09-2023 Bilirubin Ql (U) Negative Negative [facility] Calcium [Mass/volume] in Ser um or PlasmaOrdered By: Theo Thakkar on 03-09-2023 Calcium [Mass/Vol] 9.3 mg/dL 8.6-10.3 [facility] Carbon dioxide, total [Moles /volume] in Serum or PlasmaOrdered By: Theo Thakkar on 03-09-2023 CO2 [Moles/Vol] 26.4 mmol/L 21.0-31.[address] [facility] Chloride [Moles/volume] in S jaime or PlasmaOrdered By: Theo Thakkar on 03-09-2023 Chloride [Moles/Vol] 104 mmol/L 98-107 [facility] Color Auto (U)Ordered By: Ab bola Thakkar on 03-09-2023 Color (U) Yellow Yellow [facility] Creatinine [Mass/volume] in Serum or PlasmaOrdered By: Theo Thakkar on 03-09-2023 Creatinine [Mass/Vol] 1.83 mg/dL 0.70-1.30 [facility] Creatinine [Mass/volume] in UrineOrdered By: Thoe Thakkar on 03-09-2023 Creatinine (U) [Mass/Vol] 162.0 mg/dL 14.0-26.0 [facility] Glucose [Mass/volume] in Ser um or PlasmaOrdered By: Theo Thakkar on 03-09-2023 Glucose [Mass/Vol] 126 mg/dL 70-100 [facility] Comment on above: ADA recommended refe rence rangeRandom Glucose Reference Range is dependent on time and content of last meal. Glucose of more than 200 mg/dL in a nonstressed, ambulatory subject supports the diagnosis of Diabetes Mellitus. Ketones Auto test strip (U) [Mass/Vol]Ordered By: Theo Thakkar on 03-09-2023 Ketones (U) [Mass/Vol] Negative Negative Fi [facility] - UrinalysisOrder ed By: Theo Thakkar on 03-09-2023 Hyaline casts LM Ql (Urine sed) None seen [LPF] 0-8 [facility] Magnesium [Mass/volume] in S jaime or PlasmaOrdered By: Theo Thakkar on 03-09-2023 Magnesium [Mass/Vol] 2.2 mg/dL 1.9-2.7 [facility] Nitrite Test strip Ql (U)Ord ered By: Theo Thakkar on 03-09-2023 Nitrite Ql (U) Negative Negative [facility] No Panel InformationOrdered By: Theo Thakkar on 03-09-2023 Estimated GFR (CKD-EPI) 37.537 mL/Min [facility] Creatinine Clearance (Chem N/A [facility] Parathyrin.intact [Mass/volu me] in Serum or PlasmaOrdered By: Theo Thakkar on 03-09-2023 Parathyrin.intact [Mass/Vol] 128.0 pg/mL 12-88 [facility] Phosphate [Mass/volume] in S jaime or PlasmaOrdered By: Theo Thakkar on 03-09-2023 Phosphate [Mass/Vol] 4.1 mg/dL 3.7-7.2 [facility] Potassium [Moles/volume] in Serum or PlasmaOrdered By: Thoe Thakkar on 03-09-2023 Potassium [Moles/Vol] 4.7 mmol/L 3.5-5.1 [facility] Protein Auto test strip (U) [Mass/Vol]Ordered By: Theo Thakkar on 03-09-2023 Protein (U) [Mass/Vol] 100 mg/dL Negative [facility] Protein [Mass/volume] in Uri neOrdered By: Theo Thakkar on 03-09-2023 Protein (U) [Mass/Vol] 104 mg/dL 0-9 [facility] Serum or plasma anion gap de terminationOrdered By: Theo Thakkar on 03-09-2023 Anion gap [Moles/Vol] 10.3 mmol/L 6.0-15.0 [facility] Sodium [Moles/volume] in Ser um or PlasmaOrdered By: Theo Thakkar on 03-09-2023 Sodium [Moles/Vol] 136 mmol/L 136-145 [facility] Specific gravity Auto test s trip (U) [Rel density]Ordered By: Theo Thakkar on 03-09-2023 Specific gravity (U) [Rel density] 1.018 1.001-1.03 0 [facility] Squamous epithelial cells de tection in urine sediment by light microscopyOrdered By: Theo Thakkar on 03-09-2023 Epithelial cells.squamous LM Ql (Urine sed) None seen [HPF] 0-2 [facility] Urate [Mass/volume] in Serum or PlasmaOrdered By: Theo Thakkar on 03-09-2023 Urate [Mass/Vol] 7.1 mg/dL 4.4-7.[address] [facility] Urea nitrogen [Mass/volume] in Serum or PlasmaOrdered By: Theo Thakkar on 03-09-2023 Urea nitrogen [Mass/Vol] 30 mg/dL 7-25 [facility] Urine bacteria detection by automated methodOrdered By: Theo Thakkar on 03-09-2023 Bacteria Auto Ql (U) None seen None Seen [facility] Urine clarity by refractomet ry automatedOrdered By: Theo Thakkar on 03-09-2023 Clarity Refractometry automated (U) Cloudy Clear [facility] Urine culture routineOrdered By: Theo Thakkar on 03-09-2023 Bacteria identified Cx Nom (U) Staphylococcus aureus [facility] Bacteria identified Cx Nom (U) Staphylococcus aureus [facility] Urine glucose measurement by automated test strip (mass/volume)Ordered By: Theo Thakkar on 03-09-2023 Glucose Auto test strip (U) [Mass/Vol] Normal mg/dL Normal [facility] Urine hemoglobin detection b y automated test stripOrdered By: Theo Thakkar on 03-09-2023 Hemoglobin Auto test strip Ql (U) 1+ Negative [facility] Urine leukocyte esterase det ection by automated test stripOrdered By: Theo Thakkar on 03-09-2023 Leukocyte esterase Auto test strip Ql (U) 4+ Negative [facility] Urine protein/creatinine rat ioOrdered By: Theo Thakkar on 03-09-2023 Protein/Creatinine (U) [Ratio] 642 mg/g{Cre} 0-200 [facility] Urobilinogen Auto test strip (U) [Mass/Vol]Ordered By: Theo Thakkar on 03-09-2023 Urobilinogen (U) [Mass/Vol] Normal mg/dL Normal [facility] Vitamin D+Metabolites [Mass/ volume] in Serum or PlasmaOrdered By: Theo Thakkar on 03-09-2023 Vitamin D+Metabolites [Mass/Vol] 18.9 ng/mL 30-100 [facility] Comment on above: VITAMIN D STATUS 25( [place])VITAMIN D RANGE (ng/mL) Deficient <20 Insufficient 20 to <30Sufficient 30 to 100Reference: Grecia MF,Wayne PALMER, John VILLEGAS, et al. Evaluation,treatment, and prevention of vitamin D deficiency; an Endocrine Society clinical practice guideline. JCEM. 2010; 96(7):1911-30. pH Auto test strip (U)Ordere d By: Theo Thakkar on 03-09-2023 pH (U) 5.5 [pH] 5.0-9.0 [facility] Alanine aminotransferase [En zymatic activity/volume] in Serum or PlasmaOrdered By: Shaikh Dotty on 01-09-2023 ALT [Catalytic activity/Vol] 12 U/L 7-52 [facility] Albumin [Mass/volume] in Ser um or Plasma by Bromocresol green (BCG) dye binding methoOrdered By: Shaikh Dotty on 01-09-2023 Albumin BCG dye [Mass/Vol] 4.2 g/dL 3.5-5.7 [facility] Alkaline phosphatase [Enzyma tic activity/volume] in Serum or PlasmaOrdered By: Shaikh Dotty on 01-09-2023 ALP [Catalytic activity/Vol] 66 U/L 34-104 [facility] Aspartate aminotransferase [ Enzymatic activity/volume] in Serum or PlasmaOrdered By: Shaikh Dotty on 01-09-2023 AST [Catalytic activity/Vol] 13 U/L 13-39 [facility] Basophils Auto (Bld) [#/Vol] Ordered By: Shaikh Dotty on 01-09-2023 Basophils (Bld) [#/Vol] 0.0 10*3/uL 0.0-0.2 [facility] Basophils/100 WBC Auto (Bld) Ordered By: Shaikh Dotty on 01-09-2023 Basophils/100 WBC (Bld) 0.5 % . [facility] Bilirubin.total [Mass/volume ] in Serum or PlasmaOrdered By: Shaikh Dotty on 01-09-2023 Bilirubin [Mass/Vol] 0.3 mg/dL 0.3-1.0 [facility] Calcium [Mass/volume] in Ser um or PlasmaOrdered By: Shaikh Dotty on 01-09-2023 Calcium [Mass/Vol] 9.2 mg/dL 8.6-10.3 [facility] Carbon dioxide, total [Moles /volume] in Serum or PlasmaOrdered By: Shaikh Dotty on 01-09-2023 CO2 [Moles/Vol] 26.1 mmol/L 21.0-31.[address] [facility] Chloride [Moles/volume] in S jaime or PlasmaOrdered By: Shaikh Dotty on 01-09-2023 Chloride [Moles/Vol] 109 mmol/L 98-107 [facility] Cholesterol [Mass/volume] in Serum or PlasmaOrdered By: Shaikh Dotty on 01-09-2023 Cholesterol [Mass/Vol] 178 mg/dL 140-200 [facility] Comment on above: Chol less than 200 m g/dl low riskChol 201-239 mg/dl borderline riskChol 240 mg/dl and greater high risk Cholesterol in LDL Calc [Mas s/Vol]Ordered By: Shaikh Dotty on 01-09-2023 Cholesterol in LDL [Mass/Vol] 115 mg/dL 0-100 [facility] Comment on above: LDL ATP III CLASSIFI CATIONLDL less than 100 mg/dL OptimalLDL 100-129 mg/dL Near or above optimalLDL 130-159 mg/dL Borderline highLDL 160-189 mg/dL HighLDL greater than 189 mg/dL Very high Cholesterol in VLDL Calc [Ma ss/Vol]Ordered By: Shaikh Dotty on 01-09-2023 Cholesterol in VLDL [Mass/Vol] 32 mg/dL [facility] Creatinine [Mass/volume] in Serum or PlasmaOrdered By: Shaikh Dotty on 01-09-2023 Creatinine [Mass/Vol] 1.80 mg/dL 0.70-1.30 [facility] Eosinophils Auto (Bld) [#/Vo l]Ordered By: Shaikh Dotty on 01-09-2023 Eosinophils (Bld) [#/Vol] 0.2 10*3/uL 0.0-0.45 [facility] Eosinophils/100 WBC Auto (Bl d)Ordered By: Shaikh Dotty on 01-09-2023 Eosinophils/100 WBC (Bld) 3.9 % . [facility] Erythrocyte distribution wid th Auto (RBC) [Ratio]Ordered By: Shaikh Dotty on 01-09-2023 Erythrocyte distribution width (RBC) [Ratio] 14.6 % 12.0-14.8 [facility] Globulin Calc (S) [Mass/Vol] Ordered By: Shaikh Dotty on 01-09-2023 Globulin (S) [Mass/Vol] 2.7 g/dL [facility] Glucose [Mass/volume] in Ser um or PlasmaOrdered By: Shaikh Dotty on 01-09-2023 Glucose [Mass/Vol] 114 mg/dL 70-100 [facility] Comment on above: ADA recommended refe rence rangeRandom Glucose Reference Range is dependent on time and content of last meal. Glucose of more than 200 mg/dL in a nonstressed, ambulatory subject supports the diagnosis of Diabetes Mellitus. Hematocrit Auto (Bld) [Volum e fraction]Ordered By: Shaikh Dotty on 01-09-2023 Hematocrit (Bld) [Volume fraction] 40.3 % 38.8-50.0 [facility] Hemoglobin [Mass/volume] in BloodOrdered By: Shaikh Dotty on 01-09-2023 Hemoglobin (Bld) [Mass/Vol] 13.3 g/dL 13.0-17.0 [facility] Leukocytes [#/volume] correc diana for nucleated erythrocytes in Blood by Automated counOrdered By: Shaikh Dotty on 01-09-2023 WBC corrected for nucl RBC Auto (Bld) [#/Vol] 5.6 10*3/uL 4.1-10.5 [facility] Lymphocytes Auto (Bld) [#/Vo l]Ordered By: Shaikh Dotty on 01-09-2023 Lymphocytes (Bld) [#/Vol] 1.1 10*3/uL 1.00-4.8 [facility] Lymphocytes/100 WBC Auto (Bl d)Ordered By: Shaikh Dotty on 01-09-2023 Lymphocytes/100 WBC (Bld) 19.3 % . [facility] MCH Auto (RBC) [Entitic mass ]Ordered By: Shaikh Dotty on 01-09-2023 MCH (RBC) [Entitic mass] 30.0 pg 27.5-35.2 [facility] MCHC Auto (RBC) [Mass/Vol]Or dered By: Shaikh Dotty on 01-09-2023 MCHC (RBC) [Mass/Vol] 32.9 g/dL 32.5-35.6 [facility] MCV Auto (RBC) [Entitic vol] Ordered By: Shaikh Dotty on 01-09-2023 MCV (RBC) [Entitic vol] 91.2 fL 83.5-101 [facility] Monocytes Auto (Bld) [#/Vol] Ordered By: Shaikh Dotty on 01-09-2023 Monocytes (Bld) [#/Vol] 0.5 10*3/uL 0.0-0.8 [facility] Monocytes/100 WBC Auto (Bld) Ordered By: Shaikh Dotty on 01-09-2023 Monocytes/100 WBC (Bld) 8.7 % . [facility] Neutrophils Auto (Bld) [#/Vo l]Ordered By: Shaikh Dotty on 01-09-2023 Neutrophils (Bld) [#/Vol] 3.8 10*3/uL 1.8-7.7 [facility] Neutrophils/100 WBC Auto (Bl d)Ordered By: Shaikh Dotty on 01-09-2023 Neutrophils/100 WBC (Bld) 67.6 % . [facility] No Panel InformationOrdered By: Shaikh Dotty on 01-09-2023 Estimated GFR (CKD-EPI) 38.289 mL/Min [facility] Creatinine Clearance (Chem N/A [facility] Nucleated erythrocytes [Pres ence] in Blood by Automated countOrdered By: Shaikh Dotty on 01-09-2023 Nucleated RBC Auto Ql (Bld) 0.1 /100{WBC} 0-0.5 [facility] Platelet mean volume Auto (B ld) [Entitic vol]Ordered By: Shaikh Dotty on 01-09-2023 Platelet mean volume (Bld) [Entitic vol] 9.7 fL 6.6-10.1 [facility] Platelets Auto (Bld) [#/Vol] Ordered By: Shaikh Dotty on 01-09-2023 Platelets (Bld) [#/Vol] 173 10*3/uL 150-450 [facility] Potassium [Moles/volume] in Serum or PlasmaOrdered By: Shaikh Dotty on 01-09-2023 Potassium [Moles/Vol] 4.9 mmol/L 3.5-5.1 [facility] Protein [Mass/volume] in Ser um or PlasmaOrdered By: Shaikh Dotty on 01-09-2023 Protein [Mass/Vol] 6.9 g/dL 6.4-8.9 [facility] RBC Auto (Bld) [#/Vol]Ordere d By: Shaikh Dotty on 01-09-2023 RBC (Bld) [#/Vol] 4.42 10*6/uL 3.90-5.60 [facility] Serum or plasma albumin/glob ulin mass ratioOrdered By: Shaikh Dotty on 01-09-2023 Albumin/Globulin [Mass ratio] 1.6 {ratio} [facility] Serum or plasma anion gap de terminationOrdered By: Shaikh Dotty on 01-09-2023 Anion gap [Moles/Vol] 9.8 mmol/L 6.0-15.0 [facility] Serum or plasma high density lipoprotein (HDL) cholesterol measurementOrdered By: Shaikh Dotty on 01-09-2023 Cholesterol in HDL [Mass/Vol] 31 mg/dL 23- [facility] Comment on above: HDL CHOL ATP-III CLA SSIFICATION Cardiovascular RiskHDL > or equal to 60 mg/dL LOWHDL < 40 mg/dL HIGH Serum or plasma total choles terol/high density lipoprotein (HDL) cholesterol mass ratOrdered By: Shaikh Dotty on 01-09-2023 Cholesterol.total/Chol esterol in HDL [Mass ratio] 5.7 {ratio} <5.0 [facility] Sodium [Moles/volume] in Ser um or PlasmaOrdered By: Shaikh Dotty on 01-09-2023 Sodium [Moles/Vol] 140 mmol/L 136-145 [facility] Triglyceride [Mass/volume] i n Serum or PlasmaOrdered By: Shaikh Dotty on 01-09-2023 Triglyceride [Mass/Vol] 162 mg/dL 0-149 [facility] Comment on above: TRIG ATP III CLASSIF ICATIONTRIG less than 150 mg/dL NormalTRIG 150-199 mg/dL Borderline highTRIG 200-500 mg/dL High TRIG greater than 500 mg/dL Very highStandard traceable to the Center for Disease Conrtrol and Prevention (CDC) test method. Urea nitrogen [Mass/volume] in Serum or PlasmaOrdered By: Shaikh Dotty on 01-09-2023 Urea nitrogen [Mass/Vol] 34 mg/dL 12-23 [facility] WBC Auto (Bld) [#/Vol]Ordere d By: Shaikh Dotty on 01-09-2023 WBC (Bld) [#/Vol] 5.6 10*3/uL 4.1-10.5 [facility] Rena 01-05-2023 CNPN Telephone (IRRFV) -- HELENAYESENIA ([id number]) 1945 M Date Time Provider Department 01/05/23 [...] will need to be scheduled at [facility]. Allergies As of Date: 01/05/2023 (No Known Allergies) Date Reviewed: 11/19/2022 Reviewed by: Elizabeth Freire APRN.POWERHOUSE ATTENDANT - Fully Assessed Reason for Visit: Patient Question [4517] Appointment [186] Prescriptions as of 01/05/2023 - [...] Status:Closed by EVELYN CHAMBERLAIN on 01/05/23 Normal [facility] CULTURE URINEon 10-28-2022 CULTURE URINE Culture Observations : LIGHT GROWTH OF MIXED SKIN DANIELLE. NO POTENTIAL PATHOGENS SEEN. Normal [facility] Comment on above: Performed By: #### U RCX #### [facility] [address] [place] [address] [address] Leighann Santana No Panel InformationOrdered By: Hyun Nazario on 05-09-2022 Prostate Specific Antigen Total 2.810 ng/mL 0.000-4.00 0 [facility] Basophils Auto (Bld) [#/Vol] Ordered By: Zeinab Justice on 04-23-2022 Basophils (Bld) [#/Vol] 0.0 10*3/uL 0.0-0.2 [facility] Basophils/100 WBC Auto (Bld) Ordered By: Zeinab Justice on 04-23-2022 Basophils/100 WBC (Bld) 0.5 % . [facility] Body fluid albumin measureme nt (mass/volume)Ordered By: Zeinab Justice on 04-23-2022 Albumin (Body fld) [Mass/Vol] 3.6 g/dL 3.2-5.5 [facility] Creatinine and Glomerular fi ltration rate.predicted panel (S/P/Bld)Ordered By: Zeinab Justice on 04-23-2022 Creatinine [Mass/Vol] 1.65 mg/dL 0.64-1.27 [facility] Eosinophils Auto (Bld) [#/Vo l]Ordered By: Zeinab Justice on 04-23-2022 Eosinophils (Bld) [#/Vol] 0.2 10*3/uL 0.0-0.45 [facility] Eosinophils/100 WBC Auto (Bl d)Ordered By: Zeinab Justice on 04-23-2022 Eosinophils/100 WBC (Bld) 3.4 % . [facility] Erythrocyte distribution wid th Auto (RBC) [Ratio]Ordered By: Zeinab Justice on 04-23-2022 Erythrocyte distribution width (RBC) [Ratio] 15.0 % 12.0-14.8 [facility] Estimated glomerular filtrat ion rate (GFR) non- AmericanOrdered By: Zeinab Justice on 04-23-2022 GFR/1.73 sq M.predicted among non-blacks MDRD (S/P/Bld) [Vol rate/Area] 41 mL/Min [facility] Globulin Calc (S) [Mass/Vol] Ordered By: Zeinab Justice on 04-23-2022 Globulin (S) [Mass/Vol] 2.6 g/dL [facility] Hematocrit Auto (Bld) [Volum e fraction]Ordered By: Zeinab Justice on 04-23-2022 Hematocrit (Bld) [Volume fraction] 38.0 % 38.8-50.0 [facility] Hemoglobin [Mass/volume] in BloodOrdered By: Zeinab Justice on 04-23-2022 Hemoglobin (Bld) [Mass/Vol] 12.3 g/dL 13.0-17.0 [facility] Laboratory - Hematology and Cell countsOrdered By: Zeinab Justice on 04-23-2022 Nucleated RBC/100 WBC (Bld) [Ratio] 0.2 % 0-0.5 [facility] Leukocytes [#/volume] in Blo od by Automated countOrdered By: Zeinab Justice on 04-23-2022 WBC (Bld) [#/Vol] 5.3 10*3/uL 4.5-11.0 [facility] Lymphocytes Auto (Bld) [#/Vo l]Ordered By: Zeinab Justice on 04-23-2022 Lymphocytes (Bld) [#/Vol] 0.9 10*3/uL 1.00-4.8 [facility] Lymphocytes/100 WBC Auto (Bl d)Ordered By: Zeinab Justice on 04-23-2022 Lymphocytes/100 WBC (Bld) 17.1 % . [facility] MCH Auto (RBC) [Entitic mass ]Ordered By: Zeinab Justice on 04-23-2022 MCH (RBC) [Entitic mass] 30.6 pg 27.5-35.2 [facility] MCHC Auto (RBC) [Mass/Vol]Or dered By: Zeinab Justice on 04-23-2022 MCHC (RBC) [Mass/Vol] 32.4 g/dL 32.5-35.6 [facility] MCV Auto (RBC) [Entitic vol] Ordered By: Zeinab Justice on 04-23-2022 MCV (RBC) [Entitic vol] 94.4 fL 83.5-101 [facility] Monocytes Auto (Bld) [#/Vol] Ordered By: Zeinab Justice on 04-23-2022 Monocytes (Bld) [#/Vol] 0.6 10*3/uL 0.0-0.8 [facility] Monocytes/100 WBC Auto (Bld) Ordered By: Zeinab Justice on 04-23-2022 Monocytes/100 WBC (Bld) 10.5 % . [facility] Neutrophils Auto (Bld) [#/Vo l]Ordered By: Zeinab Justice on 04-23-2022 Neutrophils (Bld) [#/Vol] 3.6 10*3/uL 1.8-7.7 [facility] Neutrophils/100 WBC Auto (Bl d)Ordered By: Zeinab Justice on 04-23-2022 Neutrophils/100 WBC (Bld) 68.5 % . [facility] No Panel InformationOrdered By: Zeinab Justice on 04-23-2022 Estimated GFR () 49 mL/Min [facility] Comment on above: GFR estimated refere nce range: According to KDOQI guidelines, <60 ml/min/1.73m2 is sufficient to diagnose a patient with chronic kidney disease. Pharmacy Creatinine Clearance (Chem N/A [facility] Platelet mean volume Auto (B ld) [Entitic vol]Ordered By: Zeinab Justice on 04-23-2022 Platelet mean volume (Bld) [Entitic vol] 9.7 fL 6.6-10.1 [facility] Platelets Auto (Bld) [#/Vol] Ordered By: Zeinab Justice on 04-23-2022 Platelets (Bld) [#/Vol] 170 10*3/uL 150-450 [facility] Protein [Mass/volume] in Ser um or PlasmaOrdered By: Zeinab Justice on 04-23-2022 Protein [Mass/Vol] 6.2 g/dL 6.1-7.9 [facility] RBC Auto (Bld) [#/Vol]Ordere d By: Zeinab Justice on 04-23-2022 RBC (Bld) [#/Vol] 4.02 10*6/uL 3.90-5.60 [facility] Serum or plasma alanine cadet otransferase measurement without P-5'-P (enzymatic activiOrdered By: Zeinab Justice on 04-23-2022 ALT No additional P-5'-P [Catalytic activity/Vol] 19 U/L 10-60 [facility] Serum or plasma albumin/glob ulin mass ratioOrdered By: Zeinab Justice on 04-23-2022 Albumin/Globulin [Mass ratio] 1.4 {ratio} [facility] Serum or plasma alkaline crispin sphatase measurement (enzymatic activity/volume)Ordered By: Zeinab Justice on 04-23-2022 ALP [Catalytic activity/Vol] 51 U/L 32-92 [facility] Serum or plasma anion gap de terminationOrdered By: Zeinab Justice on 04-23-2022 Anion gap [Moles/Vol] 13.2 mmol/L 6.0-15.0 [facility] Serum or plasma aspartate am inotransferase measurement (enzymatic activity/volume)Ordered By: Zeinab Justice on 04-23-2022 AST [Catalytic activity/Vol] 18 U/L 10-42 [facility] Serum or plasma calcium jose antonio urement (mass/volume)Ordered By: Zeinab Justice on 04-23-2022 Calcium [Mass/Vol] 8.8 mg/dL 8.2-10.2 [facility] Serum or plasma chloride doreen surement (moles/volume)Ordered By: Zeinab Justice on 04-23-2022 Chloride [Moles/Vol] 104 mmol/L 95-114 [facility] Serum or plasma glucose jose antonio urement (mass/volume)Ordered By: Zeinab Justice on 04-23-2022 Glucose [Mass/Vol] 98 mg/dL 70-100 [facility] Comment on above: ADA recommended refe rence rangeRandom Glucose Reference Range is dependent on time and content of last meal. Glucose of more than 200 mg/dL in a nonstressed, ambulatory subject supports the diagnosis of Diabetes Mellitus. Serum or plasma potassium me asurement (moles/volume)Ordered By: Zeinab Justice on 04-23-2022 Potassium [Moles/Vol] 4.6 mmol/L 3.5-5.1 [facility] Serum or plasma sodium measu rement (moles/volume)Ordered By: Zeinab Justice on 04-23-2022 Sodium [Moles/Vol] 136 mmol/L 136-146 [facility] Serum or plasma total biliru bin measurement (mass/volume)Ordered By: Zeinab Justice on 04-23-2022 Bilirubin [Mass/Vol] 0.5 mg/dL 0.3-1.2 [facility] Serum or plasma total carbon dioxide measurement (moles/volume)Ordered By: Zeinab Justice on 04-23-2022 CO2 [Moles/Vol] 23.4 mmol/L 22.0-30.[address] [facility] Serum or plasma urea nitroge n measurement (mass/volume)Ordered By: Zeinab Justice on 04-23-2022 Urea nitrogen [Mass/Vol] 22 mg/dL 02-21 [facility] CBC W Auto Differential pane l (Bld)on 03-27-2022 Basophils (Bld) [#/Vol] <0.11 k/uL [facility] Basophils/100 WBC (Bld) 0.3 % [facility] Differential cell count method Nom (Bld) Auto [facility] Eosinophils (Bld) [#/Vol] 0.25 10*3/uL <0.46 k/uL [facility] Eosinophils/100 WBC (Bld) 3.2 % [facility] Erythrocyte distribution width (RBC) [Ratio] 14.3 % 11.5 - 15.0 % [facility] Hematocrit (Bld) [Volume fraction] 39.3 % 39.0 - 51.0 % [facility] Hemoglobin (Bld) [Mass/Vol] 12.8 g/dL Low 13.0 - 17.0 g/dL [facility] Immature granulocytes (Bld) [#/Vol] 0.03 10*3/uL <0.10 k/uL [facility] Immature granulocytes/100 WBC (Bld) 0.4 % [facility] Lymphocytes (Bld) [#/Vol] 1.53 10*3/uL 1.00 - 4.00 k/uL [facility] Lymphocytes/100 WBC (Bld) 19.8 % [facility] MCH (RBC) [Entitic mass] 31.4 pg 26.0 - 34.0 pg [facility] MCHC (RBC) [Mass/Vol] 32.6 g/dL 30.5 - 36.0 g/dL [facility] MCV (RBC) [Entitic vol] 96.6 fL 80.0 - 100.0 fL [facility] Monocytes (Bld) [#/Vol] 0.67 10*3/uL <0.87 k/uL [facility] Monocytes/100 WBC (Bld) 8.7 % [facility] Neutrophils (Bld) [#/Vol] 5.21 10*3/uL 1.45 - 7.50 k/uL [facility] Neutrophils/100 WBC (Bld) 67.6 % [facility] Nucleated RBC (Bld) [#/Vol] <0.01 k/uL [facility] Nucleated RBC/100 WBC (Bld) [Ratio] 0.0 /100 WBC [facility] Platelet mean volume (Bld) [Entitic vol] 11.2 fL 9.0 - 12.7 fL [facility] Platelets (Bld) [#/Vol] 183 10*3/uL 150 - 400 k/uL [facility] RBC (Bld) [#/Vol] 4.07 10*6/uL Low 4.20 - 6.00 m/uL [facility] WBC (Bld) [#/Vol] 7.71 10*3/uL 3.70 - 11.00 k/uL [facility] CHEMISTRYOrdered By: SYSTEM SYSTEM on 02-13-2022 Albumin [Mass/Vol] 4.0 g/dL Normal 3.3 - 5.0 gm/dL [facility] Albumin/Globulin [Mass ratio] 1.2 {ratio} Normal 1.1 - 2.2 [facility] Remisol ALP [Catalytic activity/Vol] 52 [iU]/d Normal 21 - 98 Int._Unit/ L [facility] ALT No additional P-5'-P [Catalytic activity/Vol] [...] 45 mL/min/1.73 m2 Low >=59mL/min /1.73 m2 [facility] Chem S GFR/1.73 sq M.predicted among non-blacks MDRD (S/P/Bld) [Vol rate/Area] 37 mL/min/1.73 m2 Low >=59mL/min /1.73 m2 [facility] Chem S Globulin (S) [Mass/Vol] 3.3 g/dL [...] - 11.0 E9/L [facility] HemeAutoSS Covid-19 PCR (CVDTBH)on SARS-CoV-2 (COVID-19) RNA WENCESLAO+probe Ql (Unsp spec) Not detected Normal NOT DETECTED [facility] Comment on above: Result Comment: This test is not yet approved or cleared by the [place] FDA. When there are no FDA-approved or cleared tests available, and other criteria are met, FDA can make tests available under an emergency access mechanism called an Emergency Use Authorization (EUA). The EUA for this test is supported by the Data Modeling Specialist of Health and Human Service's (HHS's) declaration [...] SARS-CoV-2. Performed By: #### C VDTBH #### [facility] [address] [place] [address] Dr. Leighann Santana PTH INTACTon 01-31-2022 PTH, Intact 35 pg/mL Normal 15-65 [facility] Comment on above: Performed By: #### P THINT #### [facility] [id number] Leighann Santana VIT D 25-OH LABCORPon 2021 Vitamin D, 25-Hydroxy 26.2 ng/mL Critically low 30.0-100.0 [facility] Comment on above: Result Comment: [place] min D deficiency has been defined by the [place] of [employer] and an Endocrine Society practice guideline as a level of serum 25-OH vitamin D less than 20 ng/mL (1,2). The Endocrine Society went on to further define vitamin D insufficiency as a level between 21 and 29 ng/mL (2). 1. IOM ([place] of [employer]). 2010. Dietary reference intakes for calcium and D. [place]: The National Academies Press. 2. Grecia MF, [place], John VILLEGAS, et al. Evaluation, treatment, and prevention of vitamin D deficiency: an Endocrine Society clinical practice guideline. JCEM. 2010; 96(7):1911-30. Performed By: #### V ITADLC #### [facility] [address] [address] [address] Leighann Santana HEMOGRAM AND PLATELon 2021 Hematocrit (Bld) [Volume fraction] 39.3 % Critically low 42.0-54.0 [facility] Comment on above: Performed By: #### H H ####[facility] [address] [address]Dr. Leighann Santana Hemoglobin (Bld) [Mass/Vol] 12.5 g/dL Critically low 14.0-18.0 [facility] Comment on above: Performed By: #### H H ####[facility] [address] [id number]. Leighann Santana MCH (RBC) [Entitic mass] 30.2 pg Normal 25.9-34.0 [facility] Comment on above: Performed By: #### H H ####[facility] [address] [id number]. Leighann Santana MCHC (RBC) [Mass/Vol] 31.8 g/dL Normal 29.9-35.2 [facility] Comment on above: Performed By: #### H H ####[facility] [address] [id number]. Leighann Santana MCV (RBC) [Entitic vol] 94.9 fL Critically high 80.0-94.0 [facility] Comment on above: Performed By: #### H H ####[facility] [address] [address]Dr. Leighann Santana PLT 191 103/ul Normal 150-450 [facility] Comment on above: Performed By: #### H H ####[facility] [address] [address]Dr. Leighann Santana RBC 4.14 106/ul Critically low 4.70-6.10 [facility] Comment on above: Performed By: #### H H ####[facility] [address] [place], [place] [address]Dr. Leighann Santana WBC 7.3 103/ul Normal 4.0-11.0 [facility] Comment on above: Performed By: #### H H ####[facility] [address] [place], [place] [address]Dr. Leighann Santana MAGNESIUMon 01-30-2022 Magnesium [Mass/Vol] 1.9 mg/dL Normal 1.8-2.4 [facility] Comment on above: Performed By: #### R ENAL, MG, URIC ####[facility] [address] [address]Dr. Leighann Santana RENAL FUNCTION PANELon 01-30 Albumin [Mass/Vol] 3.4 g/dL Normal 3.4-5.0 [facility] Comment on above: Performed By: #### R ENAL, MG, URIC ####[facility] [address] [address]Dr. Leighann Santana Calcium [Mass/Vol] 8.7 mg/dL Normal 8.5-10.1 [facility] Comment on above: Performed By: #### R ENAL, MG, URIC ####[facility] [address] [address]Dr. Leighann Santana Chloride [Moles/Vol] 105 mmol/L Normal 98-107 [facility] Comment on above: Performed By: #### R ENAL, MG, URIC ####[facility] [address] [address]Dr. Leighann Santana CO2 [Moles/Vol] 26.5 mmol/L Normal 21.0-32.0 [facility] Comment on above: Performed By: #### R ENAL, MG, URIC ####[facility] [address] [place], [place] [address]Dr. Leighann Santana Creatinine [Mass/Vol] 1.77 mg/dL Critically high 0.70-1.30 [facility] Comment on above: Performed By: #### R ENAL, MG, URIC ####[facility] [address] [place], [place] [address]Dr. Leighann Santana EGFR-AF LAO 46 mL/min/1.73m2 Critically low >=60 [facility] Comment on above: Performed By: #### R ENAL, MG, URIC ####[facility] [address] [place], [place] [address]Dr. Leighann Santana EGFR-NON AF LAO 38 mL/min/1.73m2 Critically low >=60 [facility] Comment on above: Performed By: #### R ENAL, MG, URIC ####[facility] [address] [place], [place] [address]Dr. Leighann Santana Glucose [Mass/Vol] 136 mg/dL Critically high 74-106 [facility] Comment on above: Performed By: #### R ENAL, MG, URIC ####[facility] [address] [place], [place] [address]Dr. Leighann Santana Phosphate [Mass/Vol] 3.6 mg/dL Normal 2.6-4.7 [facility] Comment on above: Performed By: #### R ENAL, MG, URIC ####[facility] [address] [place], [place] [address]Dr. Leighann Santana Potassium [Moles/Vol] 4.5 mmol/L Normal 3.5-5.1 [facility] Comment on above: Performed By: #### R ENAL, MG, URIC ####[facility] [address] [address]Dr. Leighann Santana Sodium [Moles/Vol] 140 mmol/L Normal 136-145 [facility] Comment on above: Performed By: #### R ENAL, MG, URIC ####[facility] [address] [address]Dr. Leighann Santana Urea nitrogen [Mass/Vol] 25.0 mg/dL Critically high 7.0-18.0 [facility] Comment on above: Performed By: #### R ENAL, MG, URIC ####[facility] [address] [address]Dr. Leighann Santana UA RANDOM W/MICROSCOPICon BACTERIA SMALL Abnormal NONE SEEN [facility] Comment on above: Performed By: #### U AMIC #### [facility] [address] [place] [address] Dr. Leighann Santana Bilirubin Ql (U) Negative Normal NEGATIVE [facility] Comment on above: Performed By: #### U AMIC #### [facility] [address] [place] [address] Dr. Leighann Santana CAST NONE SEEN Normal NONE SEEN [facility] Comment on above: Performed By: #### U AMIC #### [facility] [address] [place] [address] Dr. Leighann Santana Clarity (U) CLEAR Normal CLEAR [facility] Comment on above: Performed By: #### U AMIC #### [facility] [address] [place] [address] Dr. Leighann Santana Color (U) LT. YELLOW Normal YELLOW [facility] Comment on above: Performed By: #### U AMIC #### [facility] [address] [address] [address] Leighann Santana Crystals LM Nom (Urine sed) NONE SEEN Normal NONE SEEN [facility] Comment on above: Performed By: #### U AMIC #### [facility] [address] [place] [address] Dr. Leighann Santana Epithelial cells LM Ql (Urine sed) FEW Abnormal NONE SEEN /RARE [facility] Comment on above: Performed By: #### U AMIC #### [facility] [address] [address] [address] Leighann Santana Glucose Ql (U) Negative Normal NEGATIVE [facility] Comment on above: Performed By: #### U AMIC #### [facility] [address] [address] [address] Leighann Santana Hemoglobin Ql (U) TRACE-INTACT Abnormal NEGATIVE [facility] Comment on above: Performed By: #### U AMIC #### [facility] [address] [address] [address] Leighann Santana Ketones Ql (U) Negative Normal NEGATIVE [facility] Comment on above: Performed By: #### U AMIC #### [facility] [address] [address] [address] Leighann Santana LEUKOCYTES MODERATE Abnormal NEGATIVE [facility] Comment on above: Performed By: #### U AMIC #### [facility] [address] [address] [address] Leighann Santana MUCOUS NONE SEEN Normal NONE SEEN [facility] Comment on above: Performed By: #### U AMIC #### [facility] [address] [address] [address] Leighann Santana Nitrite Ql (U) Positive Abnormal NEGATIVE [facility] Comment on above: Performed By: #### U AMIC #### [facility] [address] [place] [address] Dr. Leighann Santana pH (U) 5.5 [pH] Normal 5-9 [facility] Comment on above: Performed By: #### U AMIC #### [facility] [address] [address] [address] Leighann Santana RBC 2-5 Abnormal 0-2 [facility] Comment on above: Performed By: #### U AMIC #### [facility] [address] [place] [address] Dr. Leighann Santana SPEC GRAVITY >=1.030 Abnormal 1.005-<=1. 025 [facility] Comment on above: Performed By: #### U AMIC #### [facility] [address] [address] [address] Leighann Santana UA PROTEIN 30 mg/dl Abnormal NEGATIVE/ TRACE [facility] Comment on above: Performed By: #### U AMIC #### [facility] [address] [address] [address] Leighann Santana Urobilinogen Qn (U) 0.2 {Jing'U}/dL Normal 0.2 - 1. 0 [facility] Comment on above: Performed By: #### U AMIC #### [facility] [address] [address] [address] Leighann Santana WBC 10-20 Abnormal NONE SEEN [facility] Comment on above: Performed By: #### U AMIC #### [facility] [address] [address] [address] Leighann Santana URIC ACID SERUMon 01-30-2022 Urate [Mass/Vol] 6.5 mg/dL Normal 3.5-7.2 [facility] Comment on above: Performed By: #### R ENAL, MG, URIC ####[facility] [address] [address]Dr. Leighann Santana URINE T PROTEIN CREAT RATIOo n 01-30-2022 Protein (U) [Mass/Vol] 73.2 mg/dL Critically high <=12.0 [facility] Comment on above: Performed By: #### U RTPCR #### [facility] [address] [place] [address] Dr. Leighann Santana UR PROT CREAT RAT 0.42 Normal [facility] Comment on above: Performed By: #### U RTPCR #### [facility] [address] [place] [address] Dr. Leighann Santana URINE CREAT 175.21 mg/dL Normal 20.00-300. 00 [facility] Comment on above: Performed By: #### U RTPCR #### [facility] [address] [address] [address] Leighann Santana SURGICAL PATH REPORTon 06-11 SURGICAL PATH REPORT [facility] Department of Pathology [address] [place] [id number] Name: YESENIA BROUSSARD : 1945 [facility] [id number] Number: Gender: Male Location: [facility] Admit 75 years Attending BARBARA JOHNSTON Age: Provider: Ordering BARBARA JOHNSTON Provider: Consulting: Surgical Pathology Report ACCESSION: COLLECTED DATE/TIME: RECEIVED DATE/TIME: PATHOLOGIST: [id number] 06/06/2021 16:30 EST 06/07/2021 11:15 EST KATYA BALL MD Final Diagnosis Report for THE [place], [place] PROSTATE TISSUE; TURP: - PROSTATIC ACINAR ADENOCARCINOMA, 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 COMMENT: Intradepartmental consultation was obtained with diagnostic concurrence. CANCER CASE SUMMARY SPECIMEN Procedure Transurethral resection of the prostate (TURP) TUMOR Histologic Type Acinar adenocarcinoma Histologic Grade Grade Grade group 2 ([place] Score 3 + 4 = 7) Percentage of Pattern 4 6 - 10% Intraductal Carcinoma (IDC) Not identified Cribriform Glands Not identified Print Date06/11/2021 16:16 EST Number: Time: [facility] Department of Pathology [address] [place] [id number] Name: YESENIA BROUSSARD : 1945 [facility] [id number] Number: Gender: Male Location: [facility] Admit 75 years Attending BARBARA JOHNSTON Age: Provider: Ordering BARBARA JOHNSTON Provider: Consulting: Surgical Pathology Report ACCESSION: COLLECTED DATE/TIME: RECEIVED DATE/TIME: PATHOLOGIST: [id number] 06/06/2021 16:30 EST 06/07/2021 11:15 EST KATYA [...] 06/11/2021 16:16 EST Number: Time: [facility] Department of Pathology [address] [place], [place] [id number] Name: YESENIA BROUSSARD : 1945 [facility] [id number] Number: Gender: Male Location: [facility] Admit 75 years Attending BARBARA JOHNSTON Age: Provider: Ordering BARBARA JOHNSTON Provider: Consulting: Surgical Pathology Report ACCESSION: COLLECTED DATE/TIME: RECEIVED DATE/TIME: PATHOLOGIST: [id number] 06/06/2021 16:30 EST 06/07/2021 11:15 EST QUINN MAK, KATYA Gross Description Labeled prostate tissue. Received in formalin are multiple hemicylindrical segments of khan- pink firm, but pliable tissue. The segments have an aggregate weight of 12 grams and measure in aggregate 7.8 x 6.4 x 2.0 cm. There are calculi present amongst the tissue segment. The specimen is entirely submitted in twelve cassettes. MP/dakotah 06/07/2021 Tissue pathology report for: [facility], [address] [place] [address]; PATHOLOGY SERVICES PROVIDED BY [employer], [employer] (CLIA #[id number]) in cooperation with [facility] at [id number] [place] [id number] (CLIA #[id number]) Codes CPT CODE: 07573 Print Date06/11/2021 16:16 EST Number: Time: Normal [facility] Comment on above: Performed By: #### [id number] #### [facility] Services [address] [place] [address] Rn Surgical: Gigi Peters MD Vital Signs Date Time Vital Sign Value Performing Clinician Facility 02-20-2025 11:37-0400 Body height 177.8 cm Brian Avalos MD Work Phone: [facility] 02-20-2025 11:37-0400 Body mass index (BMI) [Ratio] 28.1 kg/m2 Brian Avalos MD Work Phone: [facility] 02-20-2025 11:37-0400 Body weight 89.01 kg Brian Avalos MD Work Phone: [facility] 02-20-2025 11:37-0400 Diastolic blood pressure 78 mm[Hg] Brian Avalos MD Work Phone: [facility] 02-20-2025 11:37-0400 Heart rate 75 /min Brian Avalos MD Work Phone: [facility] 02-20-2025 11:37-0400 Respiratory rate 18 /min Brian Avalos MD Work Phone: [facility] 02-20-2025 11:37-0400 SaO2% (BldA) [Mass fraction] 97 % Brian Avalos MD Work Phone: [facility] 02-20-2025 11:37-0400 Systolic blood pressure 138 mm[Hg] Brian Avalos MD Work Phone: [facility] 01-18-2025 09:27-0400 Body height 177.8 cm SRAVANTHI Nazario MD Work Phone: [facility] 01-18-2025 09:27-0400 Body mass index (BMI) [Ratio] 27.99 kg/m2 SRAVANTHI Nazario MD Work Phone: [facility] 01-18-2025 09:27-0400 Body temperature 98.6 [degF] SRAVANTHI Nazario MD Work Phone: [facility] 01-18-2025 09:27-0400 Body weight 88.5 kg SRAVANTHI Nazario MD Work Phone: [facility] 01-18-2025 09:27-0400 Diastolic blood pressure 75 mm[Hg] SRAVANTHI Nazario MD Work Phone: [facility] 01-18-2025 09:27-0400 Heart rate 92 /min SRAVANTHI Nazario MD Work Phone: [facility] 01-18-2025 09:27-0400 Respiratory rate 16 /min SRAVANTHI Nazario MD Work Phone: [facility] 01-18-2025 09:27-0400 SaO2% (BldA) [Mass fraction] 96 % SRAVANTHI Nazario MD Work Phone: [facility] 01-18-2025 09:27-0400 Systolic blood pressure 150 mm[Hg] SRAVANTHI Nazario MD Work Phone: [facility] 08-30-2024 11:30-0400 Diastolic blood pressure 68 mm[Hg] Jose Hector 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 Work Phone: [facility] 08-30-2024 11:30-0400 Systolic blood pressure 136 mm[Hg] Jose Hector 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 Work Phone: [facility] 08-30-2024 11:16-0400 Body height 177.8 cm Jose Hector 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 Work Phone: [facility] 08-30-2024 11:16-0400 Body mass index (BMI) [Ratio] 28.55 kg/m2 Jose Hector 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 Work Phone: [facility] 08-30-2024 11:16-0400 Body weight 90.27 kg Jose Hector 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 Work Phone: [facility] 08-30-2024 11:16-0400 Heart rate 84 /min Jose Hector 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 Work Phone: [facility] 08-15-2024 10:39-0400 Body height 177.8 cm Brian Avalos MD Work Phone: [facility] 08-15-2024 10:39-0400 Body mass index (BMI) [Ratio] 28.4 kg/m2 Brian Avalos MD Work Phone: [facility] 08-15-2024 10:39-0400 Body temperature 97.8 [degF] Brian Avalos MD Work Phone: [facility] 08-15-2024 10:39-0400 Body weight 89.92 kg Brian Avalos MD Work Phone: [facility] 08-15-2024 10:39-0400 Diastolic blood pressure 74 mm[Hg] Brian Avalos MD Work Phone: [facility] 08-15-2024 10:39-0400 Heart rate 85 /min Brian Avalos MD Work Phone: [facility] 08-15-2024 10:39-0400 Respiratory rate 16 /min Brian Avalos MD Work Phone: [facility] 08-15-2024 10:39-0400 SaO2% (BldA) [Mass fraction] 98 % Brian Avalos MD Work Phone: [facility] 08-15-2024 10:39-0400 Systolic blood pressure 123 mm[Hg] Brian Avalos MD Work Phone: [facility] 07-14-2024 11:14-0500 Body height 177.8 cm Brian Avalos MD Work Phone: [facility] 07-14-2024 11:14-0500 Body temperature 98 [degF] Brian Avalos MD Work Phone: [facility] 07-14-2024 11:14-0500 Body weight 89 kg Brian Avalos MD Work Phone: [facility] 07-14-2024 11:14-0500 Diastolic blood pressure 90 mm[Hg] Brian Avalos MD Work Phone: [facility] 07-14-2024 11:14-0500 Heart rate 101 /min Brian Avalos MD Work Phone: [facility] 07-14-2024 11:14-0500 Respiratory rate 18 /min Brian Avalos MD Work Phone: [facility] 07-14-2024 11:14-0500 SaO2% (BldA) [Mass fraction] 96 % Brian Avalos MD Work Phone: [facility] 07-14-2024 11:14-0500 Systolic blood pressure 178 mm[Hg] Brian Avalos MD Work Phone: [facility] 07-13-2024 13:16-0500 Body height 177.8 cm Nasir Ward NP Work Phone: [facility] 07-13-2024 13:16-0500 Body mass index (BMI) [Ratio] 28.84 kg/m2 Nasir Ward BOWLING FLOOR MANAGER Work Phone: [facility] 07-13-2024 13:16-0500 Body temperature 97.7 [degF] Nasir Ward BOWLING FLOOR MANAGER Work Phone: [facility] 07-13-2024 13:16-0500 Body weight 91.17 kg Nasir Ward BOWLING FLOOR MANAGER Work Phone: [facility] 07-13-2024 13:16-0500 Diastolic blood pressure 70 mm[Hg] Nasir Ward BOWLING FLOOR MANAGER Work Phone: [facility] 07-13-2024 13:16-0500 Heart rate 94 /min Nasir Ward BOWLING FLOOR MANAGER Work Phone: [facility] 07-13-2024 13:16-0500 Respiratory rate 16 /min Nasir Ward BOWLING FLOOR MANAGER Work Phone: [facility] 07-13-2024 13:16-0500 SaO2% (BldA) [Mass fraction] 94 % Nasir Ward BOWLING FLOOR MANAGER Work Phone: [facility] 07-13-2024 13:16-0500 Systolic blood pressure 136 mm[Hg] Nasir Ward BOWLING FLOOR MANAGER Work Phone: [facility] 04-21-2024 11:12-0500 Body height 177.8 cm Nasir Ward BOWLING FLOOR MANAGER Work Phone: [facility] 04-21-2024 11:12-0500 Body mass index (BMI) [Ratio] 27.86 kg/m2 Nasir Ward BOWLING FLOOR MANAGER Work Phone: [facility] 04-21-2024 11:12-0500 Body temperature 96.3 [degF] Nasir Ward BOWLING FLOOR MANAGER Work Phone: [facility] 04-21-2024 11:12-0500 Body weight 88.09 kg Nasir Ward BOWLING FLOOR MANAGER Work Phone: [facility] 04-21-2024 11:12-0500 Diastolic blood pressure 68 mm[Hg] Nasir Ward BOWLING FLOOR MANAGER Work Phone: [facility] 04-21-2024 11:12-0500 Heart rate 93 /min Nasir Ward BOWLING FLOOR MANAGER Work Phone: [facility] 04-21-2024 11:12-0500 Respiratory rate 16 /min Nasir Ward BOWLING FLOOR MANAGER Work Phone: [facility] 04-21-2024 11:12-0500 SaO2% (BldA) [Mass fraction] 93 % Nasir Ward BOWLING FLOOR MANAGER Work Phone: [facility] 04-21-2024 11:12-0500 Systolic blood pressure 128 mm[Hg] Nasir Ward BOWLING FLOOR MANAGER Work Phone: [facility] 04-18-2024 11:31-0500 Blood Pressure Location Barbara JOHNSTON [facility] 04-18-2024 11:31-0500 Body temperature 98.6 [degF] Barbara JOHNSTON [facility] 04-18-2024 11:31-0500 Diastolic blood pressure 85 mm[Hg] Barbara JOHNSTON [facility] 04-18-2024 11:31-0500 Heart rate 95 /min Barbara JOHNSTON [facility] 04-18-2024 11:31-0500 Respiratory rate 16 /min Barbara JOHNSTON [facility] 04-18-2024 11:31-0500 Systolic blood pressure 122 mm[Hg] Barbara JOHNSTON [facility] 02-29-2024 08:28-0400 Body height 177.8 cm [facility] 02-29-2024 08:28-0400 Body mass index (BMI) [Ratio] 27.4 kg/m2 PHYSICIAN NO [facility] 02-29-2024 08:28-0400 Body temperature 97.8 [degF] PHYSICIAN NO [facility] 02-29-2024 08:28-0400 Body weight 86.86 kg PHYSICIAN NO [facility] 02-29-2024 08:28-0400 Diastolic blood pressure 84 mm[Hg] PHYSICIAN NO [facility] 02-29-2024 08:28-0400 Heart rate 98 /min PHYSICIAN NO [facility] 02-29-2024 08:28-0400 Respiratory rate 16 /min PHYSICIAN NO [facility] 02-29-2024 08:28-0400 SaO2% (BldA) [Mass fraction] 99 % PHYSICIAN NO [facility] 02-29-2024 08:28-0400 Systolic blood pressure 129 mm[Hg] PHYSICIAN NO [facility] 01-20-2024 17:46-0400 Body height 177.8 cm Nasir Ward BOWLING FLOOR MANAGER Work Phone: [facility] 01-20-2024 17:46-0400 Body mass index (BMI) [Ratio] 27.55 kg/m2 Nasir Ward BOWLING FLOOR MANAGER Work Phone: [facility] 01-20-2024 17:46-0400 Body temperature 98.49 [degF] Nasir Ward BOWLING FLOOR MANAGER Work Phone: [facility] 01-20-2024 17:46-0400 Body weight 87.09 kg Nasir Ward BOWLING FLOOR MANAGER Work Phone: [facility] 01-20-2024 17:46-0400 Diastolic blood pressure 70 mm[Hg] Nasir Ward BOWLING FLOOR MANAGER Work Phone: [facility] 01-20-2024 17:46-0400 Heart rate 76 /min Nasir Ward BOWLING FLOOR MANAGER Work Phone: [facility] Comment on above: 97% O2 01-20-2024 17:46-0400 Systolic blood pressure 130 mm[Hg] Nasir Gascabarbara HANSON Work Phone: [facility] 12-15-2023 14:33-0400 Body mass index (BMI) [Ratio] 27.49 kg/m2 SRAVANTHI Nazario MD Work Phone: [facility] 12-15-2023 14:33-0400 Body temperature 97.81 [degF] SRAVANTHI Nazario MD Work Phone: [facility] 12-15-2023 14:33-0400 Body weight 86.9 kg SRAVANTHI Nazario MD Work Phone: [facility] 12-15-2023 14:33-0400 Diastolic blood pressure 76 mm[Hg] SRAVANTHI Nazario MD Work Phone: [facility] 12-15-2023 14:33-0400 Heart rate 86 /min SRAVANTHI Nazario MD Work Phone: [facility] 12-15-2023 14:33-0400 Respiratory rate 16 /min SRAVANTHI Nazario MD Work Phone: [facility] 12-15-2023 14:33-0400 SaO2% (BldA) [Mass fraction] 98 % SRAVANTHI Nazario MD Work Phone: [facility] 12-15-2023 14:33-0400 Systolic blood pressure 137 mm[Hg] SRAVANTHI Nazario MD Work Phone: [facility] 10-15-2023 09:17-0400 Body height 177.8 cm MD Shaikh Storm Work Phone: [facility] 10-15-2023 09:17-0400 Body mass index (BMI) [Ratio] 28.1 kg/m2 MD Shaikh Storm Work Phone: [facility] 10-15-2023 09:17-0400 Body temperature 97.8 [degF] MD Shaikh Storm Work Phone: [facility] 10-15-2023 09:17-0400 Body weight 89 kg MD Shaikh Storm Work Phone: [facility] 10-15-2023 09:17-0400 Diastolic blood pressure 86 mm[Hg] MD Shaikh Storm Work Phone: [facility] 10-15-2023 09:17-0400 Heart rate 67 /min MD Shaikh Storm Work Phone: [facility] 10-15-2023 09:17-0400 Respiratory rate 16 /min MD Shaikh Storm Work Phone: [facility] 10-15-2023 09:17-0400 SaO2% (BldA) [Mass fraction] 94 % MD Shaikh Storm Work Phone: [facility] 10-15-2023 09:17-0400 Systolic blood pressure 128 mm[Hg] MD Shaikh Storm Work Phone: [facility] 09-18-2023 10:50-0400 Blood Pressure Location Barbara JOHNSTON [facility] 09-18-2023 10:50-0400 Diastolic blood pressure 81 mm[Hg] Barbara JOHNSTON [facility] 09-18-2023 10:50-0400 Heart rate 76 /min Barbara JOHNSTON [facility] 09-18-2023 10:50-0400 Respiratory rate 16 /min Barbara JOHNSTON [facility] 09-18-2023 10:50-0400 Systolic blood pressure 128 mm[Hg] Barbara JOHNSTON [facility] 08-18-2023 12:12-0400 Diastolic blood pressure 60 mm[Hg] Chaim Grayson DO Work Phone: [facility] 08-18-2023 12:12-0400 Systolic blood pressure 138 mm[Hg] Chaim Grayson DO Work Phone: [facility] 08-18-2023 11:52-0400 Body height 177.8 cm Chaim Grayson DO Work Phone: [facility] 08-18-2023 11:52-0400 Body mass index (BMI) [Ratio] 28.12 kg/m2 Chaim Grayson DO Work Phone: [facility] 08-18-2023 11:52-0400 Body weight 88.91 kg Chaim Grayson DO Work Phone: [facility] 08-18-2023 11:52-0400 Heart rate 80 /min Chaim Grayson DO Work Phone: [facility] 06-18-2023 13:11-0500 Diastolic blood pressure 94 mm[Hg] [address] 06-18-2023 13:11-0500 Heart rate 86 /min [address] 06-18-2023 13:11-0500 Systolic blood pressure 154 mm[Hg] [address] 06-12-2023 11:11-0500 Body height 177.8 cm Kodi Reynolds MD Work Phone: [facility] 06-12-2023 11:11-0500 Body weight 88.91 kg Kodi Reynolds MD Work Phone: [facility] 06-04-2023 10:19-0500 Diastolic blood pressure 84 mm[Hg] Chaim Grayson DO Work Phone: [facility] 06-04-2023 10:19-0500 Systolic blood pressure 154 mm[Hg] Chaim Grayson DO Work Phone: [facility] 06-04-2023 10:18-0500 Body height 177.8 cm Chaim Grayson DO Work Phone: [facility] 06-04-2023 10:18-0500 Body mass index (BMI) [Ratio] 28.41 kg/m2 Chaim Grayson DO Work Phone: [facility] 06-04-2023 10:18-0500 Body weight 89.81 kg Chaim Grayson DO Work Phone: [facility] 06-04-2023 10:18-0500 Heart rate 83 /min Chaim Grayson DO Work Phone: [facility] 04-21-2023 09:05-0500 Diastolic blood pressure 86 mm[Hg] CLAIRE BRITNI [facility] 04-21-2023 09:05-0500 Heart rate 76 /min CLAIRE BRITNI [facility] 04-21-2023 09:05-0500 Mean blood pressure 108 mm[Hg] CLAIRE BRITNI [facility] 04-21-2023 09:05-0500 Systolic blood pressure 151 mm[Hg] CLAIRE BRITNI [facility] 04-21-2023 08:20-0500 Blood Pressure Location CLAIRE BRITNI [facility] 04-21-2023 08:20-0500 Diastolic blood pressure 84 mm[Hg] CLAIRE BRITNI [facility] 04-21-2023 08:20-0500 Heart rate 79 /min CLAIRE BRITNI [facility] 04-21-2023 08:20-0500 Respiratory rate 16 /min CLAIRE BRITNI [facility] 04-21-2023 08:20-0500 Systolic blood pressure 153 mm[Hg] CLAIRE JAMES [facility] 04-16-2023 11:30-0500 Body height 177.8 cm Jose Martin Mchugh Other [email or web address] Other 04-16-2023 11:30-0500 Body mass index (BMI) [Ratio] 28.26 kg/m2 Jose Martin Mchugh Other [email or web address] Other 04-16-2023 11:30-0500 Body temperature 97.8 [degF] Jose Martin Mchugh Other [email or web address] Other 04-16-2023 11:30-0500 Body weight 89.36 kg Jose Martin Mchugh Other [email or web address] Other 04-16-2023 11:30-0500 Diastolic blood pressure 62 mm[Hg] Jose Martin Mchugh Other [email or web address] Other 04-16-2023 11:30-0500 SaO2% (BldA) [Mass fraction] 97 % Jose Martin Mchugh Other [email or web address] Other 04-16-2023 11:30-0500 Systolic blood pressure 120 mm[Hg] Jose Martin Mchugh Other [email or web address] Other 03-23-2023 12:55-0400 Diastolic blood pressure 78 mm[Hg] MD Shaikh Storm Work Phone: [facility] 03-23-2023 12:55-0400 Heart rate 54 /min MD Shaikh Storm Work Phone: [facility] 03-23-2023 12:55-0400 Respiratory rate 16 /min MD Shaikh Storm Work Phone: [facility] 03-23-2023 12:55-0400 SaO2% (BldA) [Mass fraction] 95 % MD Shaikh Storm Work Phone: [facility] 03-23-2023 12:55-0400 Systolic blood pressure 145 mm[Hg] MD Shaikh Storm Work Phone: [facility] 03-23-2023 09:48-0400 Inhaled oxygen flow rate 4 L/min MD Shaikh Storm Work Phone: [facility] 03-23-2023 07:22-0400 Body height 177.8 cm MD Shaikh Storm Work Phone: [facility] 03-23-2023 07:22-0400 Body weight 89.35 kg MD Shaikh Storm Work Phone: [facility] 03-12-2023 08:30-0400 Body height 177.8 cm Jose Martin Mchugh Other [email or web address] Other 03-12-2023 08:30-0400 Body mass index (BMI) [Ratio] 28.26 kg/m2 Jose Martin Mchugh Other [email or web address] Other 03-12-2023 08:30-0400 Body temperature 97.5 [degF] Jose Martin Mchugh Other [email or web address] Other 03-12-2023 08:30-0400 Body weight 89.36 kg Jose Martin Mchugh Other [email or web address] Other 03-12-2023 08:30-0400 Diastolic blood pressure 68 mm[Hg] Jose Martin Rosariozaira Other [email or web address] Other 03-12-2023 08:30-0400 SaO2% (BldA) [Mass fraction] 97 % Jose Martin Rosariozaira Other [email or web address] Other 03-12-2023 08:30-0400 Systolic blood pressure 128 mm[Hg] Jose Martin Rosariozaira Other [email or web address] Other 02-20-2023 11:15-0400 Diastolic blood pressure 63 mm[Hg] MD Shaikh Storm Work Phone: [facility] 02-20-2023 11:15-0400 Heart rate 45 /min MD Shaikh Storm Work Phone: [facility] 02-20-2023 11:15-0400 Respiratory rate 18 /min MD Shaikh Storm Work Phone: [facility] 02-20-2023 11:15-0400 SaO2% (BldA) [Mass fraction] 95 % MD Shaikh Storm Work Phone: [facility] 02-20-2023 11:15-0400 Systolic blood pressure 123 mm[Hg] MD Shaikh Storm Work Phone: [facility] 02-20-2023 11:07-0400 Body height 177.8 cm MD Shaikh Storm Work Phone: [facility] 02-20-2023 11:07-0400 Body mass index (BMI) [Ratio] 29 kg/m2 MD Shaikh Storm Work Phone: [facility] 02-20-2023 11:07-0400 Body weight 92 kg MD Shaikh Storm Work Phone: [facility] 02-20-2023 07:53-0400 Body temperature 98 [degF] MD Shaikh Storm Work Phone: [facility] 02-18-2023 11:30-0400 Body height 177.8 cm Bonnie Johnbennett Other [email or web address] Other 02-18-2023 11:30-0400 Body mass index (BMI) [Ratio] 29.12 kg/m2 Bonnie Johnbennett Other [email or web address] Other 02-18-2023 11:30-0400 Body temperature 97.8 [degF] Bonnie Johnbennett Other [email or web address] Other 02-18-2023 11:30-0400 Body weight 92.08 kg Bonnie Johnbennett Other [email or web address] Other 02-18-2023 11:30-0400 Diastolic blood pressure 76 mm[Hg] Bonnie Johnbennett Other [email or web address] Other 02-18-2023 11:30-0400 SaO2% (BldA) [Mass fraction] 97 % Bonnie Johnbennett Other [email or web address] Other 02-18-2023 11:30-0400 Systolic blood pressure 126 mm[Hg] Bonniemaddie Tan Other [email or web address] Other 02-11-2023 14:48-0400 Blood Pressure Location CLAIRE JAMES [facility] 02-11-2023 14:48-0400 Diastolic blood pressure 74 mm[Hg] CLAIRE JAMES [facility] 02-11-2023 14:48-0400 Heart rate 80 /min CLAIRE BRITNI [facility] 02-11-2023 14:48-0400 Respiratory rate 16 /min CLAIRE BRITNI [facility] 02-11-2023 14:48-0400 Systolic blood pressure 130 mm[Hg] CLAIRE BRITNI [facility] 01-19-2023 13:04-0400 Body weight 92.63 kg Jose Mendis DO Work Phone: [facility] 01-19-2023 13:04-0400 Diastolic blood pressure 58 mm[Hg] Jose Mendis DO Work Phone: [facility] 01-19-2023 13:04-0400 Heart rate 48 /min Jose Mendis DO Work Phone: [facility] 01-19-2023 13:04-0400 Systolic blood pressure 122 mm[Hg] Jose Mendis DO Work Phone: [facility] 12-03-2022 14:57-0400 Blood Pressure Location CLAIRE BRITNI [facility] 12-03-2022 14:57-0400 Diastolic blood pressure 76 mm[Hg] CLAIRE BRITNI [facility] 12-03-2022 14:57-0400 Heart rate 69 /min CLAIRE BRITNI [facility] 12-03-2022 14:57-0400 Respiratory rate 16 /min CLAIRE BRITNI [facility] 12-03-2022 14:57-0400 Systolic blood pressure 138 mm[Hg] CLAIRE BRITNI [facility] 11-18-2022 13:29-0400 Body temperature 98.71 [degF] SRAVANTHI Nazario MD Work Phone: [facility] 11-18-2022 13:29-0400 Body weight 92.53 kg SRAVANTHI Nazario MD Work Phone: [facility] 11-18-2022 13:29-0400 Diastolic blood pressure 54 mm[Hg] SRAVANTHI Nazario MD Work Phone: [facility] 11-18-2022 13:29-0400 Heart rate 56 /min SRAVANTHI Nazario MD Work Phone: [facility] 11-18-2022 13:29-0400 Respiratory rate 18 /min SRAVANTHI Nazario MD Work Phone: [facility] 11-18-2022 13:29-0400 SaO2% (BldA) [Mass fraction] 96 % SRAVANTHI Nazario MD Work Phone: [facility] 11-18-2022 13:29-0400 Systolic blood pressure 112 mm[Hg] SRAVANTHI Nazario MD Work Phone: [facility] 04-21-2022 15:30-0500 Body temperature 96.69 [degF] SRAVANTHI Nazario MD Work Phone: [facility] 04-21-2022 15:30-0500 Body weight 95.71 kg SRAVANTHI Nazario MD Work Phone: [facility] 04-21-2022 15:30-0500 Diastolic blood pressure 70 mm[Hg] SRAVANTHI Nazario MD Work Phone: [facility] 04-21-2022 15:30-0500 Heart rate 58 /min SRAVANTHI Nazario MD Work Phone: [facility] 04-21-2022 15:30-0500 Respiratory rate 18 /min SRAVANTHI Nazario MD Work Phone: [facility] 04-21-2022 15:30-0500 SaO2% (BldA) [Mass fraction] 98 % SRAVANTHI Nazario MD Work Phone: [facility] 04-21-2022 15:30-0500 Systolic blood pressure 154 mm[Hg] SRAVANTHI Nazario MD Work Phone: [facility] 04-14-2022 15:04-0500 Body temperature 97.59 [degF] SRAVANTHI Nazario MD Work Phone: [facility] 04-14-2022 15:04-0500 Body weight 93.44 kg SRAVANTHI Nazario MD Work Phone: [facility] 04-14-2022 15:04-0500 Diastolic blood pressure 68 mm[Hg] SRAVANTHI Nazario MD Work Phone: [facility] 04-14-2022 15:04-0500 Heart rate 64 /min SRAVANTHI Nazario MD Work Phone: [facility] 04-14-2022 15:04-0500 Respiratory rate 16 /min SRAVANTHI Nazario MD Work Phone: [facility] 04-14-2022 15:04-0500 SaO2% (BldA) [Mass fraction] 97 % SRAVANTHI Nazario MD Work Phone: [facility] 04-14-2022 15:04-0500 Systolic blood pressure 128 mm[Hg] SRAVANTHI Nazario MD Work Phone: [facility] 04-07-2022 11:01-0500 Body temperature 97.39 [degF] SRAVANTHI Nazario MD Work Phone: [facility] 04-07-2022 11:01-0500 Body weight 94.35 kg SRAVANTHI Nazario MD Work Phone: [facility] 04-07-2022 11:01-0500 Diastolic blood pressure 63 mm[Hg] SRAVANTHI Nazario MD Work Phone: [facility] 04-07-2022 11:01-0500 Heart rate 55 /min SRAVANTHI Nazario MD Work Phone: [facility] 04-07-2022 11:01-0500 Respiratory rate 18 /min SRAVANTHI Nazario MD Work Phone: [facility] 04-07-2022 11:01-0500 SaO2% (BldA) [Mass fraction] 98 % SRAVANTHI Nazario MD Work Phone: [facility] 04-07-2022 11:01-0500 Systolic blood pressure 138 mm[Hg] SRAVANTHI Nazario MD Work Phone: [facility] 03-31-2022 15:33-0400 Body temperature 96.69 [degF] SRAVANTHI Nazario MD Work Phone: [facility] 03-31-2022 15:33-0400 Body weight 94.8 kg SRAVANTHI Nazario MD Work Phone: [facility] 03-31-2022 15:33-0400 Diastolic blood pressure 72 mm[Hg] SRAVANTHI Nazario MD Work Phone: [facility] 03-31-2022 15:33-0400 Heart rate 54 /min SRAVANTHI Nazario MD Work Phone: [facility] 03-31-2022 15:33-0400 Respiratory rate 18 /min SRAVANTHI Nazario MD Work Phone: [facility] 03-31-2022 15:33-0400 SaO2% (BldA) [Mass fraction] 97 % SRAVANTHI Nazario MD Work Phone: [facility] 03-31-2022 15:33-0400 Systolic blood pressure 145 mm[Hg] SRAVANTHI Nazario MD Work Phone: [facility] 03-24-2022 16:03-0400 Body temperature 98.01 [degF] SRAVANTHI Nazario MD Work Phone: [facility] 03-24-2022 16:03-0400 Body weight 93.44 kg SRAVANTHI Nazario MD Work Phone: [facility] 03-24-2022 16:03-0400 Diastolic blood pressure 65 mm[Hg] SRAVANTHI Nazario MD Work Phone: [facility] 03-24-2022 16:03-0400 Heart rate 50 /min SRAVANTHI Nazario MD Work Phone: [facility] 03-24-2022 16:03-0400 Respiratory rate 16 /min SRAVANTHI Nazario MD Work Phone: [facility] 03-24-2022 16:03-0400 SaO2% (BldA) [Mass fraction] 100 % SRAVANTHI Nazario MD Work Phone: [facility] 03-24-2022 16:03-0400 Systolic blood pressure 141 mm[Hg] SRAVANTHI Nazario MD Work Phone: [facility] 03-18-2022 11:52-0400 Body temperature 97.9 [degF] SRAVANTHI Nazario MD Work Phone: [facility] 03-18-2022 11:52-0400 Body weight 93.44 kg SRAVANTHI Nazario MD Work Phone: [facility] 03-18-2022 11:52-0400 Diastolic blood pressure 71 mm[Hg] SRAVANTHI Nazario MD Work Phone: [facility] 03-18-2022 11:52-0400 Heart rate 56 /min SRAVANTHI Nazario MD Work Phone: [facility] 03-18-2022 11:52-0400 Respiratory rate 16 /min SRAVANTHI Nazario MD Work Phone: [facility] 03-18-2022 11:52-0400 SaO2% (BldA) [Mass fraction] 96 % SRAVANTHI Nazario MD Work Phone: [facility] 03-18-2022 11:52-0400 Systolic blood pressure 115 mm[Hg] SRAVANTHI Nazario MD Work Phone: [facility] 12-10-2021 09:19-0400 Body height 175.9 cm SRAVANTHI Nazario MD Work Phone: [facility] 12-10-2021 09:19-0400 Body temperature 98.71 [degF] SRAVANTHI Nazario MD Work Phone: [facility] 12-10-2021 09:19-0400 Body weight 94.35 kg SRAVANTHI Nazario MD Work Phone: [facility] 12-10-2021 09:19-0400 Diastolic blood pressure 68 mm[Hg] SRAVANTHI Nazario MD Work Phone: [facility] 12-10-2021 09:19-0400 Heart rate 51 /min SRAVANTHI Nazario MD Work Phone: [facility] 12-10-2021 09:19-0400 Respiratory rate 16 /min SRAVANTHI Nazario MD Work Phone: [facility] 12-10-2021 09:19-0400 SaO2% (BldA) [Mass fraction] 97 % SRAVANTHI Nazario MD Work Phone: [facility] 12-10-2021 09:19-0400 Systolic blood pressure 116 mm[Hg] SRAVANTHI Nazario MD Work Phone: [facility] 11-04-2021 09:48-0400 Blood Pressure Location Barbara JOHNSTON [facility] 11-04-2021 09:48-0400 Diastolic blood pressure 61 mm[Hg] Barbara JOHNSTON [facility] 11-04-2021 09:48-0400 Heart rate 52 /min Barbara JOHNSTON [facility] 11-04-2021 09:48-0400 Systolic blood pressure 123 mm[Hg] Barbara JOHNSTON [facility] 10-24-2021 16:40-0400 Body height 177.8 cm Theo Vivian Other [email or web address] Other 10-24-2021 16:40-0400 Body mass index (BMI) [Ratio] 29.01 kg/m2 Theo Vivian Other [email or web address] Other 10-24-2021 16:40-0400 Body temperature 98 [degF] Theo Vivian Other [email or web address] Other 10-24-2021 16:40-0400 Body weight 91.72 kg Theo Vivian Other [email or web address] Other 10-24-2021 16:40-0400 Diastolic blood pressure 72 mm[Hg] Theo Vivian Other [email or web address] Other 10-24-2021 16:40-0400 Respiratory rate 18 /min Theo Vivian Other [employer] Other 10-24-2021 16:40-0400 SaO2% (BldA) [Mass fraction] 96 % Theo Vivian Other [employer] Other 10-24-2021 16:40-0400 Systolic blood pressure 130 mm[Hg] Theo Vivian Other [email or web address] Other Encounters Encounter Date Encounter Type Care Provider Facility Start: 02-21-2025 End: 02-21-2025 Clinisync Result Encounter Generic External Data Provider [facility] External Department Unsolicited Start: 02-21-2025 End: 02-21-2025 Clinisync Result Encounter Generic External Data Provider [facility] External Department Unsolicited Start: 02-20-2025 End: 02-20-2025 ambulatory Brian Avalos MD Work Phone: [facility] Work Phone: Start: 02-20-2025 End: 02-20-2025 Patient encounter procedure Theo Thakkar MD -[facility] Work Phone: Start: 02-13-2025 End: 02-13-2025 Clinisync Result Encounter Generic External Data Provider [facility] External Department Unsolicited Start: 02-13-2025 End: 02-13-2025 Clinisync Result Encounter Generic External Data Provider [facility] External Department Unsolicited Start: 02-13-2025 Non-patient / Non-visit Theo Thakkar MD -[facility] Work Phone: Start: 01-18-2025 End: 01-18-2025 Office outpatient visit 15 minutes G Jose Nazario MD Work Phone: Radiation Oncology Comment on above: Cancer of prostate w /med recur risk (T2b-c or [place] 7 or PSA 10-20) (HCC) (Primary Dx) Start: 01-18-2025 End: 01-18-2025 ambulatory Hyun NAZARIO Facility:[facility] Start: 01-12-2025 End: 01-12-2025 Clinisync Result Encounter Generic External Data Provider [facility] External Department Unsolicited Start: 01-12-2025 End: 01-12-2025 Clinisync Result Encounter Generic External Data Provider [facility] External Department Unsolicited Start: 01-12-2025 End: 01-12-2025 ambulatory Hyun NAZARIO Facility:[facility] Start: 09-12-2024 End: 09-12-2024 Refill Brian Avalos MD Work Phone: [facility] Comment on above: Primary hypertension (CMS/HCC) Start: 08-30-2024 End: 08-30-2024 ambulatory JOSE [facility] Amb[facility] Start: 08-30-2024 End: 08-30-2024 Office outpatient visit 15 minutes Jose [place] 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 Work Phone: [facility] Comment on above: Mixed hyperlipidemia (Primary Dx); Bilateral carotid artery disease, unspecified type; Hypertension, unspecified type; BMI 28.0-28.9,adult; Smoker; Prostate cancer (Multi); Chronic kidney disease, stage 3b (Multi); ASHD (arteriosclerotic heart disease); PVD (peripheral vascular disease) ([facility] Start: 08-29-2024 End: 08-30-2024 ambulatory CLAIRE JAMES Facility:[facility] Start: 08-29-2024 End: 08-30-2024 Lab Drop off CLAIRE JAMES [facility] Start: 08-29-2024 End: 08-29-2024 ambulatory CLAIRE JAMES Facility:[facility] Start: 08-22-2024 End: 08-23-2024 ambulatory Cherie X Orzech Facility:[facility] Start: 08-22-2024 End: 08-23-2024 Lab Drop off Cherie X Orzech [facility] Start: 08-22-2024 End: 08-22-2024 ambulatory Barbara JOHNSTON Facility:[facility] Start: 08-18-2024 End: 08-18-2024 ambulatory JOELLEN TY [facility] Start: 08-15-2024 End: 08-15-2024 ambulatory Brian Avalos MD Work Phone: [facility] Work Phone: Start: 08-15-2024 End: 08-15-2024 Patient encounter procedure Brian Avalos MD Work Phone: [facility] Work Phone: Start: 08-10-2024 End: 08-10-2024 Patient encounter procedure Brian Avalos MD Work Phone: [facility] [place] Work Phone: Start: 08-10-2024 End: 08-10-2024 ambulatory Brian Avalos MD Work Phone: [facility] Work Phone: Start: 08-08-2024 End: 08-08-2024 Lab Drop off CLAIRE JAMES [facility] Start: 08-08-2024 End: 08-08-2024 ambulatory CLAIRE JAMES Facility:[facility] Start: 07-14-2024 End: 07-14-2024 Emergency department patient visit Brian Avalos MD Work Phone: [facility] Work Phone: Start: 07-13-2024 End: 07-13-2024 Bamboo flowsheet Nasir Ward BOWLING FLOOR MANAGER Work Phone: [facility] Start: 07-13-2024 End: 07-13-2024 Bamboo flowsheet Nasir Ward BOWLING FLOOR MANAGER Work Phone: [facility] Start: 07-13-2024 End: 07-13-2024 Office outpatient visit 15 minutes Nasir Ward BOWLING FLOOR MANAGER Work Phone: [facility] Comment on above: Stage 3a chronic kid joe disease (HCC) ([facility]) (Primary Dx); Lumbar stenosis with neurogenic claudication; Mixed hyperlipidemia ([facility]); Primary hypertension ([facility]) Start: 07-13-2024 End: 07-13-2024 ambulatory NASIR WARD Not Available Start: 04-21-2024 End: 04-21-2024 Bamboo flowsheet Nasir Ward BOWLING FLOOR MANAGER Work Phone: [facility] Start: 04-21-2024 End: 04-21-2024 Bamboo flowsheet Nasir Ward BOWLING FLOOR MANAGER Work Phone: [facility] Start: 04-21-2024 End: 04-21-2024 Office outpatient visit 15 minutes Nasir Ward BOWLING FLOOR MANAGER Work Phone: [facility] Comment on above: Mixed hyperlipidemia (CMS/HCC) (Primary Dx); Primary hypertension (CMS/HCC); Stage 3a chronic kidney disease (HCC) (CMS/HCC) Start: 04-21-2024 End: 04-21-2024 ambulatory NASIR WARD Not Available Start: 04-18-2024 End: 04-18-2024 ambulatory Barbara JOHNSTON Facility:[facility] Start: 04-18-2024 End: 04-18-2024 Patient encounter procedure Barbara JOHNSTON [facility] Start: 04-07-2024 End: 04-07-2024 Lab Drop off Karime Gunderson [facility] Start: 04-07-2024 End: 04-07-2024 ambulatory Karime J Galea Facility:[facility] Start: 04-07-2024 End: 04-07-2024 Patient encounter procedure Karime J Galea [facility] Start: 02-29-2024 End: 02-29-2024 ambulatory PHYSICIAN NO [facility] Work Phone: Start: 02-29-2024 End: 02-29-2024 Patient encounter procedure PHYSICIAN NO [facility] Nephrology [place] Work Phone: Start: 02-25-2024 End: 02-25-2024 Patient encounter procedure PHYSICIAN NO [facility] [place] Work Phone: Start: 02-25-2024 End: 02-25-2024 ambulatory PHYSICIAN NO [facility] Work Phone: Start: 02-18-2024 End: 02-18-2024 Refill Saebel Wellington MA [facility] Comment on above: Primary hypertension (CMS/HCC) Start: 02-02-2024 End: 02-02-2024 Refill Sugar Wellington MA [facility] Comment on above: Primary hypertension (CMS/HCC) Start: 01-20-2024 End: 01-20-2024 Office outpatient visit 25 minutes Nasir Ward BOWLING FLOOR MANAGER Work Phone: [facility] Comment on above: Primary hypertension (CMS/HCC) (Primary Dx); Coronary artery disease involving [place] coronary artery of [place] heart without angina pectoris (CMS/HCC); Stage 3a chronic kidney disease (HCC) (CMS/HCC); Gastroesophageal reflux disease without esophagitis; Tobacco abuse; Prostate cancer (CMS/HCC); Benign prostatic hyperplasia with lower urinary tract symptoms, symptom details unspecified Start: 01-20-2024 End: 01-20-2024 ambulatory NASIR WARD Not Available Start: 01-20-2024 End: 01-20-2024 Bamboo flowsheet Nasir Lopeztrick BOWLING FLOOR MANAGER Work Phone: [facility] Start: 01-20-2024 End: 01-20-2024 Bamboo flowsheet Nasir Ward BOWLING FLOOR MANAGER Work Phone: [facility] Start: 01-12-2024 End: 01-12-2024 ambulatory JOELLEN [facility] Start: 12-15-2023 End: 12-15-2023 Patient encounter procedure G Jose Nazario MD Work Phone: Radiation Oncology Comment on above: Prostate cancer (HCC ) (Primary Dx); Stage 3 chronic kidney disease, unspecified whether stage 3a or 3b CKD (HCC) Start: 12-08-2023 End: 12-08-2023 ambulatory SHAIKH DOTTY Not Available Start: 12-02-2023 End: 12-02-2023 ambulatory [facility] Start: 11-17-2023 End: 11-17-2023 Evaluation and management of inpatient [facility] Start: 11-17-2023 End: 11-18-2023 [facility] Start: 11-05-2023 End: 11-05-2023 Encounter for other preprocedural examination VASILE MADERA [facility] Start: 11-05-2023 End: 11-05-2023 ambulatory VASILE [facility] Start: 10-15-2023 End: 10-15-2023 Patient encounter procedure MD Shaikh Storm Work Phone: [facility] V[facility] Surgery Work Phone: Start: 10-01-2023 End: 10-01-2023 ambulatory MD Shaikh Storm Work Phone: [facility] Work Phone: Start: 10-01-2023 End: 10-01-2023 Patient encounter procedure MD Shaikh Storm Work Phone: [facility] [place] Work Phone: Start: 09-28-2023 End: 09-28-2023 ambulatory SHAIKH DOTTY Not Available Start: 09-18-2023 End: 09-18-2023 ambulatory Barbara JOHNSTON Facility:[facility] Start: 09-18-2023 End: 09-18-2023 Patient encounter procedure Barbara JOHNSTON [facility] Start: 09-15-2023 Non-patient / Non-visit MD Yahaira Storm Work Phone: [facility] Work Phone: Start: 09-03-2023 End: 09-03-2023 ambulatory VASILE [facility] Start: 09-03-2023 End: 09-03-2023 ambulatory VASILE [facility] Start: 09-02-2023 End: 09-02-2023 ambulatory VASILE MADERA [facility] Start: 08-18-2023 End: 08-18-2023 Office outpatient visit 25 minutes Chaim Grayson DO Work Phone: [facility] Comment on above: Hypertension, unspec ified type; Mixed hyperlipidemia; Bilateral carotid artery disease, unspecified type (CMS/HCC); History of AL (myocardial infarction); BMI 28.0-28.9,adult; ASHD (arteriosclerotic heart disease); PVD (peripheral vascular disease) (CMS/HCC); Smoker; Chest pain, unspecified type Start: 08-10-2023 End: 08-11-2023 ambulatory Adalid Will MD Facility:[facility] Start: 07-07-2023 End: 07-07-2023 ambulatory CLAIRE JAMES Facility:[facility] Start: 06-18-2023 End: 06-19-2023 ambulatory [facility] Start: 06-18-2023 End: 06-18-2023 Subsequent hospital visit by physician Tram Jama Stress Room 1 [facility] Start: 06-12-2023 End: 06-13-2023 ambulatory JOSE NICHOLS Facility:[facility] Start: 06-12-2023 End: 06-12-2023 Office outpatient new 45 minutes Kodi Reynolds MD Work Phone: [facility] [place] Comment on above: Spondylolisthesis of lumbar region (Primary Dx) Start: 06-04-2023 End: 06-04-2023 Office consultation new/estab patient 80 min Chaim Grayson DO Work Phone: [facility] Comment on above: Hypertension, unspec ified type; Stage 3 chronic kidney disease, unspecified whether stage 3a or 3b CKD (CMS/HCC); Mixed hyperlipidemia; Bilateral carotid artery disease, unspecified type (CMS/HCC); Smoker; Chest pressure Start: 05-21-2023 End: 05-21-2023 ambulatory MD Shaikh Storm Work Phone: [facility] Work Phone: Start: 05-21-2023 End: 05-21-2023 Patient encounter procedure MD Shaikh Storm Work Phone: [facility]Electro[facility]ostics Work Phone: Start: 05-19-2023 Telephone encounter G Jose Nazario MD Work Phone: [facility] Comment on above: Appointment Confirma tion Start: 05-18-2023 ambulatory Jose rinaldi DO Work Phone: [facility] Start: 05-18-2023 Patient encounter procedure Jose Nichols DO Work Phone: Spine Medicine Comment on above: Consultation with a surgeon Start: 04-21-2023 End: 04-21-2023 ambulatory CLAIRE JAMES Facility:[facility] Start: 04-21-2023 End: 04-21-2023 Lab Drop off CLAIRE JAMES [facility] Start: 04-21-2023 End: 04-21-2023 Patient encounter procedure CLAIRE JAMES [facility] Start: 04-16-2023 Office outpatient vi sit 15 minutes Jose Martin [facility] Vascular Surgery Start: 04-16-2023 End: 04-16-2023 ambulatory MD Shaikh Storm Work Phone: [facility] Other Start: 04-16-2023 End: 04-16-2023 Patient encounter procedure MD Shaikh Storm Work Phone: [facility]Ultrasound [facility] Start: 03-23-2023 End: 03-23-2023 Admission to same day surgery center MD Shaikh Storm Work Phone: [facility]Interventional Radiology Work Phone: Start: 03-23-2023 End: 03-23-2023 ambulatory MD Shaikh Storm Work Phone: [facility] Work Phone: Start: 03-12-2023 End: 03-12-2023 ambulatory Jose Martin Mchugh Other [facility] Other Start: 03-12-2023 Office outpatient vi sit 25 minutes Jose Martin Mchugh [facility] Vascular Surgery Start: 03-12-2023 Telephone encounter Theo Thakkar [facility] Nephrology Start: 03-09-2023 End: 03-09-2023 ambulatory MD Shaikh Storm Work Phone: [facility] Work Phone: Start: 03-09-2023 End: 03-09-2023 Patient encounter procedure MD Shaikh Storm Work Phone: [facility] [place] Work Phone: Start: 03-05-2023 End: 03-05-2023 ambulatory MD Shaikh Storm Work Phone: [facility] Work Phone: Start: 03-05-2023 End: 03-05-2023 Patient encounter procedure MD Shaikh Storm Work Phone: [facility] [place] Work Phone: Start: 03-04-2023 End: 03-04-2023 ambulatory MD Shaikh Storm Work Phone: [facility] Work Phone: Start: 03-04-2023 End: 03-04-2023 Patient encounter procedure MD Shaikh Storm Work Phone: [facility] [place] Work Phone: Start: 02-20-2023 End: 02-20-2023 Admission to same day surgery center MD Shaikh Storm Work Phone: [facility]gery Center [place] Start: 02-18-2023 End: 02-18-2023 ambulatory Bonnie Tan Other [facility] Other Start: 02-18-2023 Office outpatient ne w 60 minutes Bonnie Rutbennett [facility] Vascular Surgery Start: 02-11-2023 End: 02-11-2023 Patient encounter procedure CLAIRE JAMES [facility] Start: 02-06-2023 End: 02-06-2023 ambulatory MD Shaikh Storm Work Phone: [facility] Work Phone: Start: 02-06-2023 End: 02-06-2023 Departed Referred MD Shaikh Storm Work Phone: [facility]-Pre-Surgical Testing Work Phone: Start: 02-06-2023 End: 02-06-2023 Patient encounter procedure MD Shaikh Stomr Work Phone: [facility] Pu[facility]-Hqr-Weudtlce Testing Work Phone: Start: 01-20-2023 Telephone encounter Constance Durand [facility] ematology/Oncology Comment on above: Social Work Services Start: 01-19-2023 End: 01-19-2023 Patient encounter procedure Jose Nichols DO Work Phone: Spine Medicine Comment on above: Spinal stenosis, 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); Foraminal stenosis of lumbar region; Peripheral artery disease (HCC); Prostate cancer (HCC) Start: 01-15-2023 Telephone encounter Jose Nichols DO Work Phone: [address] [place] [address] Comment on above: Orders; Appointment Start: 01-09-2023 End: 01-09-2023 ambulatory MD Shaikh Storm Work Phone: [facility] Work Phone: Start: 01-09-2023 End: 01-09-2023 Patient encounter procedure MD Shaikh Storm Work Phone: [facility] [place] Work Phone: Start: 01-06-2023 Telephone encounter Hyun Nazario MD Work Phone: Radiation Oncology Comment on above: Orders Start: 01-05-2023 Telephone encounter Evelyn Chamberlain RN [facility] INTERVENTIONAL RADIOLOGY Comment on above: Patient Question; Ap pointment Start: 12-03-2022 End: 12-03-2022 Patient encounter procedure CLAIRE JAMES [facility] Start: 11-18-2022 Telephone encounter Hyun Nazario MD Work Phone: [facility] Comment on above: Referral Information [...] SANTIAGO . Facility:[facility] Start: 07-15-2022 ambulatory RUT Avila [...] MD Shaikh Storm Work Phone: [facility] Work Phone: Start: 05-09-2022 End: 05-09-2022 Patient encounter procedure MD Shaikh Storm Work Phone: [facility] [place] Start: 04-30-2022 Social Work Constance Durand [facility] II [facility]ERM[facility] Hematolo gy/Oncology Start: 04-23-2022 End: 04-23-2022 ambulatory MD Shaikh Storm Work Phone: [facility] Work Phone: Start: 04-23-2022 End: 04-23-2022 Patient encounter procedure MD Shaikh Storm Work Phone: [facility] [place] Start: 04-23-2022 Radiation Oncology Note G Mahamed [...] Start: 03-31-2022 End: 03-31-2022 Social Work Constance BROOKSW Hematology/Oncology Comment on above: Malignant neoplasm o [...] encounter procedure Hyun Nazario MD Work Phone: [employer] Start: 03-12-2022 Radiation Oncology Note Hyun Nazario MD Work Phone: Radiation Oncology Comment on above: Treatment Planning Start: 03-12-2022 End: 03-12-2022 Social Work Constance Durand [employer] II [employer]ERM[employer] Hematology/Oncology Start: 03-04-2022 Telephone encounter Constance BROWN [...] End: 02-13-2022 Patient encounter procedure Zeinab Justice [facility] Start: 02-11-2022 End: 02-11-[address] HOSEA OLIVA . Facility:[facility] Start: 02-09-2022 Encounter for preprocedural laboratory examination DR HOSEA OLIVA . [facility] Start: 02-07-2022 Telephone encounter [...] encounter procedure Barbara JOHNSTON [facility] Start: 10-24-2021 End: 10-24-2021 ambulatory Theo Vivian Other [email or web address] Other Start: 10-24-2021 Office outpatient ne w 45 minutes Theo Vivian [facility] Procedures Date Procedure Procedure Detail Performing Clinician Start: 02-21-2025 Ct lumbar spine w/o contrast material Generic External Data Provider Start: 02-13-2025 [facility] CBC WITH PLATEL ET [...] Phone: Start: 06-18-2023 NUCLEAR STRESS TEST NGOZI LENTZNancy ASCENCIOKENAN Start: 06-18-2023 Cv strs tst xers&/or rx [...] Author Start: 11-17-2026 Diabetes Screening Diabetes Screening [facility] Start: 06-10-2026 Diabetes Screening Diabetes Screening [facility] Start: 08-30-2025 End: 08-30-2025 Patient encounter procedure 08/30/2025 10:00 AM EDT Office Visit [facility] [address] [place] [phone] Chaim Grayson DO [address] [place] [address] [facility] Start: 05-15-2025 ambulatory Ambulatory Facility:[facility] Start: 04-20-2025 End: 07-20-2025 Prostate specific Ag [Mass/volume] in Serum or Plasma PROSTATE-SPECIFIC ANTIGEN DIAGNOSTIC Lab Routine Cancer of prostate w/med recur risk (T2b-c or [place] 7 or PSA 10-20) (HCC) Expected: 04/20/2025, Expires: 07/20/2025 [facility] Work Phone: Comment on above: Expected: 04/20/2025, Expires: Start: 04-20-2025 End: 04-20-2025 Patient encounter procedure 04/20/2025 9:45 AM EST Office Visit Radiation Oncology [address] [facility] [place] [address] Hyun Nazario MD [address] [place] [address] [place] [address] 3 month follow up Radiation Oncology Comment on above: 3 month follow up Start: 01-30-2025 Influenza vaccination [facility] Start: 12-14-2024 End: 03-15-2025 Prostate specific Ag [Mass/volume] in Serum or Plasma PROSTATE-SPECIFIC ANTIGEN DIAGNOSTIC Lab Routine Prostate cancer (HCC) Expected: 12/14/2024, Expires: 03/15/2025 [facility] Work Phone: Comment on above: Expected: 12/14/2024, Expires: Start: 12-13-2024 End: 12-13-2024 Patient encounter procedure 12/13/2024 1:15 PM EDT Office Visit Radiation Oncology [address] [facility] [place] [address] Hyun Nazario MD [address] [place] [address] 1 yr rv Radiation Oncology Comment on above: 1 yr rv Start: 12-07-2024 Medicare Annual Wellness (AWV) Medicare Annual Wellness (AWV) [facility] Start: 12-06-2024 End: 12-06-2024 Patient encounter procedure 12/06/2024 1:00 PM EDT Office Visit [facility] [address] [place] [address] Lab [facility] Comment on above: Lab Start: 11-17-2024 Complete blood count Hemoglobin/Hematocrit [facility] Start: 11-17-2024 Creatinine measurement Serum Creatinine [facility] Start: 09-29-2024 End: 09-29-2024 Patient encounter procedure 09/29/2024 10:00 AM EDT Office Visit [facility] [address] [place] [phone] Nasir Ward NP [address] [place] [phone] [facility] Start: 08-18-2024 End: 08-18-2024 Patient encounter procedure 08/18/2024 10:00 AM EDT Office Visit [facility] [address] [place] [phone] Chaim Grayson DO [address] [place] [address] [facility] Start: 08-10-2024 Bacteria identified in Urine by Culture Urine Culture [facility] Start: 08-10-2024 Urine culture [facility] Start: 07-13-2024 End: 07-13-2024 Patient encounter procedure [facility] Comment on above: Arrived Start: 06-10-2024 Creatinine measurement Serum Creatinine [facility] Start: 06-01-2024 Advance Directive Discussion Advance Directive Discussion [facility] Start: 06-01-2024 Medicare Advantage Annual Wellness Visit Medicare Advantage Annual Wellness Visit [facility] Start: 04-21-2024 End: 04-21-2024 Patient encounter [facility] Comment on above: Arrived Start: 02-25-2024 Bacteria identified in Urine by Culture [facility] Start: 01-31-2024 Covid-19 Vaccine ( season) Covid-19 Vaccine () [facility] Start: 01-31-2024 Influenza vaccination [facility] Start: 01-20-2024 End: 01-20-2024 Patient encounter procedure 01/20/2024 6:00 PM EDT Office Visit VLADIMIR ROSAS [address] [place] [address] Nasir Ward NP [address] [place] [address] Primary hypertension (CMS/HCC) (Primary Dx); Coronary artery disease involving [place] coronary artery of [place] heart without angina pectoris (CMS/HCC); Stage 3a chronic kidney disease (HCC) (CMS/HCC); Gastroesophageal reflux disease without esophagitis [facility] Comment on above: Primary hypertension (CMS/HCC) (Primary Dx); Coronary artery disease involving [place] coronary artery of [place] heart without angina pectoris (CMS/HCC); Stage 3a chronic kidney disease (HCC) (CMS/HCC); Gastroesophageal reflux disease without esophagitis Start: 10-15-2023 Ankle brachial pressure index [facility] Start: 08-18-2023 End: 08-18-2023 Patient encounter procedure 08/18/2023 11:10 AM EDT Office Visit [facility] [address] [place] [address] Chaim Grayson DO [address] [place] [address] [facility] Start: 07-08-2023 End: 07-08-2023 Clinical Support 07/08/2023 10:30 AM EST Clinical Support [facility] [address] [place] [address] [place] [phone] [facility] Start: 06-04-2023 End: 06-04-2024 Alanine aminotransferase [Enzymatic activity/volume] in Serum or Plasma by With P-5'-P Alanine Aminotransferase Lab Routine Hypertension, unspecified type Bilateral carotid artery disease, unspecified type (CMS/HCC) Expected: 06/04/2023 (Approximate), Expires: 06/04/2024 [facility] Work Phone: Comment on above: Expected: 06/04/2023 (Approximate), Expi res: 06/04/2024 Start: 06-04-2023 End: 06-04-2024 Aspartate aminotransferase [Enzymatic activity/volume] in Serum or Plasma by With P-5'-P Aspartate Aminotransferase Lab Routine Hypertension, unspecified type Bilateral carotid artery disease, unspecified type (CMS/HCC) Expected: 06/04/2023 (Approximate), Expires: 06/04/2024 [facility] Work Phone: Comment on above: Expected: 06/04/2023 (Approximate), Expi res: 06/04/2024 Start: 06-04-2023 End: 06-04-2024 Basic metabolic 2000 panel - Serum or Plasma Basic Metabolic Panel Lab Routine Hypertension, unspecified type Mixed hyperlipidemia Expected: 06/04/2023 (Approximate), Expires: 06/04/2024 [facility] Work Phone: Comment on above: Expected: 06/04/2023 (Approximate), Expi res: 06/04/2024 Start: 06-04-2023 End: 06-04-2024 Lipid 1996 panel - Serum or Plasma Lipid Panel Lab Routine Mixed hyperlipidemia Expected: 06/04/2023 (Approximate), Expires: 06/04/2024 [facility] Work Phone: Comment on above: Expected: 06/04/2023 (Approximate), Expi res: 06/04/2024 Start: 06-04-2023 End: 06-04-2025 NM Heart Perfusion W stress and W radionuclide IV Nuclear Stress Test Cardiac Nuclear Medicine Routine Hypertension, unspecified type Bilateral carotid artery disease, unspecified type (CMS/HCC) Chest pressure Expected: 06/04/2023 (Approximate), Expires: 06/04/2025 [facility] Service Area Work Phone: Comment on above: Expected: 06/04/2023 (Approximate), Expi res: 06/04/2025 Start: 06-01-2023 Advance Directive Discussion Advance Directive Discussion [facility] Start: 06-01-2023 Behavioral Health Screening Behavioral Health Screening [facility] Start: 06-01-2023 Depression Assessment Depression Assessment [facility] Start: 05-20-2023 End: 07-20-2023 Prostate specific Ag [Mass/volume] in Serum or Plasma PSA/PROSTSPECAG DIAG Lab Routine History of prostate cancer Expected: 05/20/2023, Expires: 07/20/2023 [facility] Work Phone: Comment on above: Expected: 05/20/2023, Expires: Start: 03-27-2023 Complete blood count Hemoglobin/Hematocrit [facility] Start: 03-27-2023 HEMOGLOBIN/HEMATOCRIT HEMOGLOBIN/HEMATOCRIT [facility] Start: 03-23-2023 [facility] Start: 03-09-2023 Bacteria identified in Urine by Culture [facility] Start: 03-05-2023 Pulse volume recorder plethysmography [facility] Start: 02-20-2023 End: 02-20-2023 [facility] Start: 01-30-2023 Covid-19 Vaccine () Covid-19 Vaccine () [facility] Start: 01-30-2023 Influenza vaccination [facility] Start: 06-03-2022 End: 08-03-2022 Bacteria identified in Urine by Culture URINE CULTURE Microbiology Routine Hematuria, unspecified type Malignant neoplasm of prostate (HCC) Expected: 06/03/2022 (Approximate), Expires: 08/03/2022 [facility] Work Phone: Comment on above: Expected: 06/03/2022 (Approximate), Expi res: 08/03/2022 Start: 06-03-2022 End: 08-03-2022 UA DIP B/O UA DIP B/O Lab Routine Hematuria, unspecified type Malignant neoplasm of prostate (HCC) Expected: 06/03/2022 (Approximate), Expires: 08/03/2022 [facility] Work Phone: Comment on above: Expected: 06/03/2022 (Approximate), Expi res: 08/03/2022 Start: 06-01-2022 ADVANCE DIRECTIVE DISCUSSION ADVANCE DIRECTIVE DISCUSSION [facility] Start: 06-01-2022 DEPRESSION ASSESSMENT DEPRESSION ASSESSMENT [facility] Start: 04-21-2022 End: 06-21-2022 Prostate specific Ag [Mass/volume] in Serum or Plasma PSA/PROSTSPECAG DIAG Lab Routine Malignant neoplasm of prostate (HCC) Expected: 04/21/2022, Expires: 06/21/2022 [facility] Work Phone: Comment on above: Expected: 04/21/2022, Expires: 3 Start: 03-27-2022 End: 03-18-2023 CBC W Auto Differential panel - Blood CBC + DIFF Lab Routine Malignant neoplasm of prostate (HCC) Expected: 03/27/2022, Expires: 03/18/2023 [facility] Work Phone: Comment on above: Expected: 03/27/2022, Expires: 3 Start: 01-30-2022 Influenza vaccination INFLUENZA (#1) [facility] Start: 06-01-2021 ADVANCE DIRECTIVE DISCUSSION ADVANCE DIRECTIVE DISCUSSION [facility] Start: 06-01-2021 DEPRESSION ASSESSMENT DEPRESSION ASSESSMENT [facility] Start: 12-23-2020 COVID-19 VACCINE (3 - Booster for Moderna series) COVID-19 VACCINE (3 - Booster for Moderna series) [facility] Start: 09-20-2020 COVID-19 VACCINE (3 - Booster for Moderna series) COVID-19 VACCINE (3 - Booster for Moderna series) [facility] Start: 09-20-2020 COVID-19 VACCINE (3 - Moderna series) COVID-19 VACCINE (3 - Moderna series) [facility] Start: 09-20-2020 COVID-19 VACCINE (4 - Booster) COVID-19 VACCINE (4 - Booster) [facility] Start: 09-20-2020 COVID-19 Vaccine (4 - Moderna series) COVID-19 Vaccine (4 - Moderna series) [facility] Start: 2020 RSV High Risk: (Elderly (60+) or Population) (1 - 1-dose 75+ series) RSV High Risk: (Elderly (60+) or Population) (1 - 1-dose 75+ series) [facility] Start: 2020 RSV Vaccine (1 - 1-dose 75+ series) RSV Vaccine (1 - 1-dose 75+ series) [facility] Start: 2005 RSV Vaccine (1 - 1-dose 60+ series) RSV Vaccine (1 - 1-dose 60+ series) [facility] Start: 1995 Influenza vaccination LUNG CANCER SCREENING [facility] Start: 1995 Screening for malignant neoplasm of lung Lung Cancer Screening [facility] Start: 1995 SHINGRIX VACCINE (1 of 2) SHINGRIX VACCINE (1 of 2) [facility] Start: 1995 Zoster Vaccines (1 of 2) Zoster Vaccines (1 of 2) [facility] Start: 1990 DIABETES SCREEN DIABETES SCREEN [facility] Start: 1990 Diabetes Screening Diabetes Screening [facility] Start: 1967 DTaP/Tdap/Td Vaccines (1 - Tdap) DTaP/Tdap/Td Vaccines (1 - Tdap) [facility] Start: 1964 Pneumococcal vaccination Pneumococcal Vaccine (1 of 2 - PCV) [facility] Start: 1964 Pneumococcal Vaccine: 50+ (1 of 2 - PCV) Pneumococcal Vaccine: 50+ (1 of 2 - PCV) [facility] Start: 1964 Pneumococcal Vaccine: 65+ Years (1 of 2 - PCV) Pneumococcal Vaccine: 65+ Years (1 of 2 - PCV) [facility] Start: 1964 Urine microalbumin profile [facility] Start: 1964 Urine screening for protein CKD: Urine Protein Screening [facility] Start: 1963 ANNUAL PCP TEAM CHRONIC DISEASE VISIT ANNUAL PCP TEAM CHRONIC DISEASE VISIT [facility] Start: 1963 Anxiety Screening Anxiety Screening [facility] Start: 1963 Creatinine measurement Serum Creatinine [facility] Start: 1963 Depression Screening Depression Screening [facility] Start: 1963 HEPATITIS C SCREENING HEPATITIS C SCREENING [facility] Start: 1963 Hepatitis C screening Hepatitis C Screening [facility] Start: 1963 SERUM CREATININE SERUM CREATININE [facility] Start: 1957 Adult depression screening assessment DEPRESSION SCREENING [facility] Start: 1951 Pneumococcal Vaccine: 65+ (1 - PCV) Pneumococcal Vaccine: 65+ (1 - PCV) [facility] Start: 1951 Pneumococcal Vaccine: 65+ (1 of 2 - PCV) Pneumococcal Vaccine: 65+ (1 of 2 - PCV) [facility] Start: 1951 Pneumococcal Vaccine: 65+ Years (1 - PCV) Pneumococcal Vaccine: 65+ Years (1 - PCV) [facility] Start: 1951 Pneumococcal Vaccine: 65+ Years (1 of 2 - PCV) Pneumococcal Vaccine: 65+ Years (1 of 2 - PCV) [facility] Start: 1951 PNEUMOCOCCAL: 65+ (1 - PCV) PNEUMOCOCCAL: 65+ (1 - PCV) [facility] Start: 1945 Lipid panel Lipid Panel [facility] Start: 1945 Medicare Annual Wellness Visit Medicare Annual Wellness Visit (AWV) [facility] CBC W Auto Different ial panel - Blood CBC and differential Lab Routine Stage 3a chronic kidney disease (HCC) (CMS/HCC) Ordered: 07/13/2024 [facility] [place] Work Phone: Comment on above: Ordered: 07/13/2024 Comprehensive metabo lic 2000 panel - Serum or Plasma Comprehensive metabolic panel Lab Routine Stage 3a chronic kidney disease (HCC) (CMS/HCC) Ordered: 07/13/2024 [facility] Comment on above: Ordered: 07/13/2024 CT SIM PLANNING RADI ATION ONCOLOGY CT SIM PLANNING RADIATION ONCOLOGY Radiology Routine Malignant neoplasm of prostate (HCC) Ordered: 03/03/2022 [facility] Work Phone: Comment on above: Ordered: 03/03/2022 End: 12-19-2023 Mri spinal canal lumbar w/o & w/contr matrl MRI LUMBAR SPINE WO/W IVCON Radiology Routine Spinal stenosis of lumbar region, unspecified whether neurogenic claudication present 1 Occurrences starting 11/19/2022 until 12/19/2023 [facility] Work Phone: Comment on above: 1 Occurrences starting 11/19/2022 until 12/19/2023 End: 12-21-2023 Mri spinal canal lumbar w/o & w/contr matrl MRI LUMBAR SPINE WO/W IVCON Radiology Routine Spinal stenosis of lumbar region without neurogenic claudication 1 Occurrences starting 11/21/2022 until 12/21/2023 [facility] Work Phone: Comment on above: 1 Occurrences starting 11/21/2022 until 12/21/2023 End: 02-05-2024 Mri spinal canal lumbar w/o & w/contr matrl MRI LUMBAR SPINE WO/W IVCON Radiology Routine Spinal stenosis of lumbar region, unspecified whether neurogenic claudication present 1 Occurrences starting 01/06/2023 until 02/05/2024 [facility] Work Phone: Comment on above: 1 Occurrences starting 01/06/2023 until 02/05/2024 Patient Education [facility] Work Phone: Patient referral [facility] Work Phone: Renal function 1999 panel - Serum or Plasma [facility] Renal function 1999 panel - Serum or Plasma [facility] Renal function 1999 panel - Serum or Plasma [facility] [place] [facility] Immunizations Immunization Date Immunization Notes Care Provider Shubham adkins 07-26-2020 SARS-CoV-2 (COVID-19 ) [id number] vaccine Barbara PRESTON [facility] 06-28-2020 SARS-CoV-2 (COVID-19 ) mRNA-1273 vaccine Barbara JOHNSTON [facility] 06-25-2020 COVID-19 mRNA-1273 (Moderna) MD Shaikh Storm Work Phone: [facility] NEGATED: Highlighted row has not occurred!04-21-2023 influenza virus vaccine, unspecified formulation CLAIRE JAMES [facility] Payers Date Payer Category Payer Unknown [id number] 2024 Unknown [id number] 2024 Unknown [id number] 2022 Medicare (Managed Care) 1.2. [id number] 2022 Private Health Insurance [id number]. [id number] 2021 Medicare HUMANA MEDICARE HUMANA GOLD PLUS [id number] 2021-Present [phone] [address] [address] [place] [address] [facility] [id number]. [id number] 2021 Medicare [id number]. 1.13.159.2. [id number] 1959 Private Health Insurance [id number] 2.16.840.1.519007.19 1959 Self-pay [id number] 1945 Unknown [id number] 2.16.840.1.805524.3.579.2. 356 1945 Unknown [id number] 2.16.840.1.608105.3.579.2. 593 1945 Unknown [id number] 2.16.840.1.627514.3.579.2. 593 1945 Unknown [id number] 2.16.840.1.384283.3.579.2. 593 1945 Unknown [id number] 2.16.840.1.963111.3.579.2. 593 1945 Unknown [id number] 2.16.840.1.289922.3.579.2. 593 1945 Unknown [id number] 2.16.840.1.615370.3.579.2. 593 1945 Unknown [id number] 2.16.840.1.652500.3.579.2. 593 1945 Unknown [id number] 2.16.840.1.376205.3.579.2. 593 1945 Unknown [id number] 2.16.840.1.613780.3.579.2. 593 1945 Unknown [id number] 2.16.840.1.508465.3.579.2. 593 1945 Unknown [id number] 2.16.840.1.045340.3.579.2. 593 1945 Unknown [id number] 2.16.840.1.354826.3.579.2. 593 1945 Unknown [id number] 2.16.840.1.129982.3.579.2. 593 1945 Unknown [id number] 2.16.840.1.677426.3.579.2. 593 1945 Unknown [id number] 2.16.840.1.405750.3.579.2. 1246 1945 Unknown [id number] 2.16.840.1.460914.3.579.2. 1246 1945 Unknown [id number] 2.16.840.1.311105.3.579.2. 1246 1945 Unknown [id number] 2.16.840.1.638466.3.579.2. 1246 1945 Unknown [id number] 2.16.840.1.493400.3.579.2. 1246 1945 Unknown [id number] 2.16.840.1.034292.3.579.2. 196 1945 Unknown [id number] 2.16.840.1.844442.3.579.2. 727 1945 Unknown [id number] 2.16.840.1.258381.3.579.2. 727 1945 Unknown [id number] 2.16.840.1.076371.3.579.2. 727 1945 Unknown [id number] 2.16.840.1.445979.3.579.2. 727 1945 Unknown [id number] 2.16.840.1.545372.3.579.2. 727 1945 Unknown [id number] 2.16.840.1.211693.3.579.2. 727 1945 Unknown [id number] 2.16.840.1.680044.3.579.2. 727 1945 Unknown [id number] 2.16.840.1.243451.3.579.2. 1259 1945 Unknown [id number] 2.16.840.1.436400.3.579.2. 1259 1945 Unknown [id number] 2.16.840.1.625520.3.579.2. 1259 1945 Unknown [id number] 2.16.840.1.025595.3.579.2. 1259 1945 Unknown [id number] 2.16.840.1.670230.3.579.2. 9 1945 Unknown [id number] 2.16.840.1.256427.3.579.2. 72 1945 Unknown [id number] 2.16.840.1.734498.3.579.2. 1945 Unknown [id number] 2.16.840.1.421253.3.579.2. 72 1945 Unknown [id number] 2.16.840.1.565261.3.579.2. 72 1945 Unknown [id number] 2.16.840.1.439926.3.579.2. 1244 1945 Unknown [id number] 2.16.840.1.259341.3.579.2. 1945 Unknown [id number] 2.16.840.1.918490.3.579.2. 1945 Unknown [id number] 2.16.840.1.306349.3.579.2. 72 1945 Unknown [id number] 2.16.840.1.178593.3.579.2. Unknown HCAP/HFA/FAP Active [id number] Unknown [id number] 2.16.840.1.886114.3.579.2. 531 Unknown [id number] 2.16.840.1.723694.3.579.2. 531 Unknown [id number] 2.16.840.1.917965.3.579.2. 531 Social History Date Type Detail Facility Start: 11-04-2021 End: 08-29-2024 Tobacco smoking status Heavy tobacco smoker (finding) [facility] Other Start: 11-26-2021 End: 07-14-2024 Tobacco smoking status Smoker (finding) [facility] Start: 05-13-2022 End: 01-20-2024 Sex Assigned At Male [facility] Other Start: 12-10-2021 End: 12-08-2023 Tobacco smoking status NHIS Smokes tobacco daily [facility] Start: 12-10-2021 End: 01-20-2024 Cigarettes smoked current (pack per day) - Reported 1 [facility] Start: 12-10-2021 End: 12-08-2023 Tobacco use and exposure Smokeless tobacco non-user [facility] Start: 12-10-2021 End: 07-13-2024 Alcohol intake Ex-drinker (finding) [facility] Start: 12-10-2021 End: 03-18-2022 Tobacco Comment 2 ppd x 20 yrs, 1 ppd x 40 yrs [facility] Start: 1945 Sex Assigned At Not on file [facility] Start: 11-30-2021 End: 08-30-2024 Exposure to SARS-CoV-2 (event) Not sure [facility] History of tobacco use Cigarette Smoker C [facility] Start: 1945 Sex Assigned At Male [facility] Start: 12-06-2021 Tobacco smoking status Never [facility] Start: 01-15-2023 Gender identity Identifies as male gender (finding) [facility] Start: 01-15-2023 Sexual orientation Heterosexual (finding) [facility] Start: 06-04-2023 Tobacco Comment Trying to quit [facility] Work Phone: History of tobacco use [...] smoking before back surgery could be done. [facility] Start: 04-27-2023 Alcohol Comment former [facility] Start: 07-14-2024 End: 08-15-2024 Sex Male (finding) [facility] Sexual Orientation [facility] Start: 08-30-2024 Alcoholic beverage intake Lifetime non-drinker (finding) [facility] Work Phone: Medical Equipment Procedure Code Equipment Code Equipment Origin al Text Equipment Identifier Dates Angiogram, lower extremity, left Multiple peripheral artery stent, bare-metal [id number] [facility] Start: 03-23-2023 Goals Date Patient Goal Desired Activity /State Functional Status Date Assessment Result Facility 04-18-2024 Functional Status N/A [facility] 09-18-2023 Functional Status N/A [facility] 04-21-2023 Functional Status N/A [facility] 02-11-2023 Functional Status N/A [facility] 12-03-2022 Functional Status N/A [facility] Clinical Notes 10-24-2021 to 01-18-2025 Note Date & Type Note Facility 01-18-2025 Evaluation note Diagnosis Cancer of prostate w/med recur risk (T2b-c or [place] 7 or PSA 10-20) (HCC)- Primary Malignant neoplasm of prostate documented in this encounter [facility]08-20-2025 History of Present illness Narrative* Hyun Nazario MD - 01/18/2025 9:45 AM EDT Radiation Oncology - Follow Up Note PATIENT NAME: Yesenia Broussard PATIENT DIAGNOSIS: Prostate adenocarcinoma, initial PSA 9.95, biopsy [place] score 3 + 4 = 7 (grade [...] Nazario MD cc: Shaikh Dotty [address] [place] [address] * Kelly Hector MA - 01/18/2025 9:32 AM EDT AUA=6 [facility] NoteHNO ID: [id number] Author: Hyun NAZARIO MD Service: ? Author Type: Physician Type: Progress Notes Filed: 01/18/2025 09:49 Note Text: Radiation Oncology - Follow Up Note PATIENT NAME: Yesenia Broussard PATIENT DIAGNOSIS: Prostate adenocarcinoma, initial PSA 9.95, biopsy [place] score 3 + 4 = 7 (grade [...] ASSESSMENT/PLAN: Prostate adenocarcinoma, initial PSA 9.95, biopsy [place] score 3 + 4 = 7 (grade [...] by: Hyun Nazario MD cc: Shaikh Dotty [address] [place] [address] [facility] NoteHNO ID: [id number] Author: KELLY HECTOR MA Service: ? Author Type: Painter Interior Finish Type: Progress Notes Filed: 01/18/2025 09:49 Note Text: [facility] note* Diagnosis Primary hypertension (CMS/HCC)- Primary [...] neoplasm of prostate Coronary artery disease involving spokane coronary artery of spokane heart without angina pectoris (CMS/HCC) H/O prostate cancer Mixed hyperlipidemia (CMS/HCC) Mixed hyperlipidemia Chronic bilateral low back pain with bilateral sciatica Coronary artery disease involving sp[place]ane coronary artery of sp[place]ane heart without angina pectoris (CMS/HCC)- Primary PAD (peripheral artery disease) (CMS/HCC) Unspecified peripheral vascular disease Primary hypertension (CMS/HCC) Unspecified essential hypertension Stage 3a chronic kidney disease (HCC) (CMS/HCC) Lumbar stenosis with neurogenic claudication Mixed hyperlipidemia (CMS/HCC) Mixed hyperlipidemia Elevated random blood glucose level Unintentional weight change Gastroesophageal reflux disease without esophagitis Esophageal reflux Coronary artery disease involving spokane coronary artery of sp[place] heart without angina pectoris (CMS/HCC)- Primary Stage 3a chronic kidney disease (HCC) (CMS/HCC) Lumbar stenosis with neurogenic claudication Primary hypertension (CMS/HCC)- Primary Unspecified essential hypertension Coronary artery disease involving spokane coronary artery of sp[place] heart without angina pectoris (CMS/HCC) Stage 3a [...] Unspecified essential hypertension [id number] + Plan note* Assessment & Plan Note - MIKKI Montejo - 08/30/2024 1:10 PM EDTAssociated Problem(s): Chronic kidney disease, stage 3b (Multi) Follows routinely with nephrology September 2024 creatinine 1.7 [facility] Work Phone: 1(786) 544-516404-01-2025 Evaluation + Plan note* Assessment & Plan Note - MIKKI Montejo - 08/30/2024 1:10 PM EDTAssociated Problem(s): BMI 28.0-28.9,adult Reviewed the merits of healthy lifestyle choices on overall cardiovascular health. 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 Follows routinely with vascular Denies claudication [facility] Work Phone: 1(883) 983-704204-01-2025 Evaluation + Plan note* Assessment & Plan Note - MIKKI Montejo - 08/30/2024 1:10 PM EDTAssociated Problem(s): Carotid artery disease Bilateral carotid endarterectomy Managed by local vascular team [facility] Work Phone: 1(485) 315-708104-01-2025 Miscellaneous Notes* Assessment & Plan Note - [...] EDT Associated Problem(s): PVD (peripheral vascular disease) ([facility]) 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 documented in this [facility] Work Phone: 1(906) 368-948604-01-2025 Evaluation + Plan note* Assessment & Plan Note - MIKKI Montejo - 08/30/2024 1:09 PM EDTAssociated Problem(s): Hypertension Optimal in office [facility] Work Phone: 1(116) 685-347604-01-2025 Evaluation + Plan note* Assessment & Plan Note - MIKKI Montejo - 08/30/2024 1:09 PM EDTAssociated Problem(s): HLD (hyperlipidemia) Moderate intensity statin September 2023 LDL 81, HDL 38 [facility] Work Phone: 1(820) 966-610604-01-2025 Evaluation + Plan note* Assessment & Plan Note - MIKKI Montejo - 08/30/2024 1:09 PM EDTAssociated Problem(s): ASHD (arteriosclerotic heart disease) Mid 90s Inferior STEMI in [place] Jun 2023 MPI No ischemia/no infarct TID ration 1.10 EF 58% Current daily activity > 4 METs without concerning symptoms [facility] Work Phone: 1(130) 810-145904-01-2025 Evaluation + Plan note* Assessment & Plan Note - MIKKI Montejo - 08/30/2024 11:27 AM EDTAssociated Problem(s): Smoker Down to less than a pack per day In past: did have benefit nicoderm patches and chantix. Continued every day tobacco use. Have reviewed the negative cardiovascular impact of nicotine. Continues to decline pharmacological assistance. [facility] Work Phone: [phone]) [phone] History of Present illness Narrative* MIKKI Montejo [...] Allergen Reactions Ezetimibe GI intolerance and Nausea/vomiting Xriednm-Syq-Qkq Reductase Inhibitors Other Muscle/Joint Pain Current Outpatient Medications Medication Instructions amLODIPine (NORVASC) 10 mg, Daily before breakfast aspirin 81 mg, Daily RT clopidogrel (Plavix) 75 mg tablet 1 tablet, Daily RT ergocalciferol (Vitamin D-2) 1.25 MG (02452 UT) capsule 1 capsule, Once Weekly HYDROcodone-acetaminophen (Nicolaus) 7.5-325 mg tablet 1 tablet, 3 times [...] heart disease) Mid Inferior STEMI in [place] Jun 2023 MPI No ischemia/no infarct TID ration 1.10 EF 58% Current daily activity > 4 METs without concerning symptoms HLD (hyperlipidemia) Moderate intensity statin September 2023 LDL 81, HDL 38 Hypertension Optimal in office Carotid artery disease Bilateral carotid endarterectomy Managed by local vascular team PVD (peripheral vascular disease) ([facility]) 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 Jose Hector MSN, 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, PMHNP-[facility] [place], [place] Please excuse any errors in grammar or translation related to this dictation. Voice recognition software was utilized to prepare this document. documented in this [facility] Work Phone: 1(793) 850-114204-01-2025 Instructions* Patient Instructions* MIKKI Montejo - 08/30/2024 [...] we can help. You may also call [phone]-NOW for free resources and assistance. documented in this [facility] Work Phone: 1([phone]) 453-682103-31-2025 NotePatient Education Urology Hematuria, Adult Hematuria is [...] these instructions at home: Medicines ??? Take isdc-hdx-ocaxnff and prescription medicines only as told by [...] the blood stops without treatment. ??? Take ezcp-bti-qcetdbx and prescription medicines only as told by your health care provider. ??? Drink enough fluid to keep your urine pale yellow. This information is not intended to replace advice given to you by your health care provider. Make sure you discuss any questions you have with your health care provider. Document Revised: 01/16/2021 Document Reviewed: 01/16/2021 [employer] Patient Education ? 2023 [employer] 08-18-2024 NoteSUBJECTIVE: Chief complaint: Return visit [...] been able to decrease his dose of Nicolaus, which he has been on for many years. He notes that when he tries to stop the Nicolaus completely, he experiences increased pain in his [...] , Rfl: ergocalciferol (Vitamin D-2) 1.25 MG (56203 Units) capsule, Take 1,250 mcg by mouth 1 (one) time per week., Disp: , Rfl: HYDROcodone-acetaminophen (Nicolaus) 7.5-325 mg tablet, 1 tablet., Disp: , [...] Reactions Ezetimibe GI intolerance Other reaction(s): Nausea/vomiting Abnwnec-Kyn-Pxg Reductase Inhibitors Other Muscle/Joint Pain Other Reaction(s): [...] bulk appropriate for age (more content not included)...[facility] 08-08-2024 NotePatient Education Urology Hematuria, Adult Hematuria [...] these instructions at home: Medicines ??? Take ifax-ehv-ekdczgt and prescription medicines only as told by [...] the blood stops without treatment. ??? Take udbx-kxu-kozlkbp and prescription medicines only as told by your health care provider. ??? Drink enough fluid to keep your urine pale yellow. This information is not intended to replace advice given to you by your health care provider. Make sure you discuss any questions you have with your health care provider. Document Revised: 01/16/2021 Document Reviewed: 01/16/2021 [employer] Patient Education ? 2023 [employer] 07-14-2024 Hospital Discharge instructions Additional Instructions Begin taking topical antibiotic as prescribed. Encourage you follow-up with your air conditioning unit tester within 24 to 48 hours to ensure proper healing. It is very important that you follow up with your primary care provider in the next 2-3 days unless instructed to do otherwise. If you do not have a primary care provider, you can contact [facility] and ask about being established for primary care services. If you require specialist follow up, such as with an orthopedic physician, yarn bleaching machine operator, urologist, or other medical specialty, you should [...] should first take Tylenol or ibuprofen available kztn-hyc-etedlrx. Medications, if prescribed to treat pain from [...] if you have any other [facility] Work Phone: [phone] History of Present illness Narrative* Nasir Ward [...] for Lumbar Stenosis. Recently reduced dosage of Nicolaus. Feels symptoms are well controlled. Continue current [...] CHOLESTEROL mg/dL 16 CHOL/HDL RATIO <5.0 3.6 Resulting Agency [facility] CKD: Follows with Nephrology- Dr. Thakkar Most Recent eGFR: 47 Creatinine: 1.51 Avoid nephrotoxic agents. Monitor closely. Following with Pain Management for Lumbar Stenosis. Recently reduced dosage of Nicolaus. Feels symptoms are well controlled. Continue current [...] for Lumbar Stenosis. Recently reduced dosage of Nicolaus. Feels symptoms are well controlled. Continue current regimen as directed by PM. documented in this encounterNorthwest Medical [id number] Evaluation note* Diagnosis Primary hypertension (CMS/HCC)- Primary [...] neoplasm of prostate Coronary artery disease involving [place] coronary artery of [place] heart without angina pectoris (CMS/HCC) H/O prostate cancer Mixed hyperlipidemia (CMS/HCC) Mixed hyperlipidemia Chronic bilateral low back pain with bilateral sciatica Coronary artery disease involving [place] coronary artery of [place] heart without angina pectoris (CMS/HCC)- Primary PAD (peripheral artery disease) (CMS/HCC) Unspecified peripheral vascular disease Primary hypertension (CMS/HCC) Unspecified essential hypertension Stage 3a chronic kidney disease (HCC) (CMS/HCC) Lumbar stenosis with neurogenic claudication Mixed hyperlipidemia (CMS/HCC) Mixed hyperlipidemia Elevated random blood glucose level Unintentional weight change Gastroesophageal reflux disease without esophagitis Esophageal reflux Coronary artery disease involving [place] coronary artery of [place] heart without angina pectoris (CMS/HCC)- Primary Stage 3a chronic kidney disease (HCC) (CMS/HCC) Lumbar stenosis with neurogenic claudication Primary hypertension (CMS/HCC)- Primary Unspecified essential hypertension Coronary artery disease involving [place] coronary artery of [place] heart without angina pectoris (CMS/HCC) Stage 3a [...] Unspecified essential hypertension documented in this encounter [facility] [id number] History of Present illness Narrative* Nasir Ward [...] CHOLESTEROL mg/dL 16 CHOL/HDL RATIO <5.0 3.6 Resulting Agency [facility] CKD: Follows with Nephrology. Avoid nephrotoxic agents. Monitor closely. Following with Pain Management for Lumbar Stenosis. Recently had surgery. Pt reports he recently had blood work done in January- nothing new in [employer]. Will request labs from Dr. Thakkar. Review [...] Items Addressed This Visit HLD (hyperlipidemia) (CMS/HCC) - Primary Currently taking Prvastatin 40mg Denies [...] nephrotoxic agents. Monitor closely. documented in this encounterNorthwest Medical [id number] Hospital Discharge instructions Patient Education 04/18/2024 12:09:27 [...] Treatment for this condition includes: Antibiotic medicine. Swlg-qsm-omxgmxd medicines to treat discomfort. Drinking enough water [...] Follow these instructions at home: Medicines Take yrqz-wlk-seashoc and prescription medicines only as told by [...] provider. Document Revised: 12/23/2020 Document Reviewed: 12/28/2020 [employer] Patient Education 2023 [employer]. Follow Up Care 09/18/2023 12:00:10 With:PRESTON MAK, Barbara Warner, URL Address: [facility] [address] [place] [address]- [phone] When: Unknown Comments:1 yr w/ PSA [facility] 11-18-2024 NotePatient Education Obstetrics and Gynecology [...] this condition includes: ??? Antibiotic medicine. ??? Dgyr-wgw-qviklmm medicines to treat discomfort. ??? Drinking enough [...] these instructions at home: Medicines ??? Take peqj-ymj-puqabjg and prescription medicines only as told by [...] Make sure you di (more content not included)...[facility]09-19-2024 Telephone encounter Note* Telephone Encounter - Sugar Wellington MA - 02/18/2024 9:49 AM EDT [facility]ill [facility] from [facility] [id number] Miscellaneous Notes* Telephone Encounter - Sugar Wellington MA - 02/18/2024 9:49 AM EDT Refill request from [facility] - documented in this encounterNorthwest Medical CenterOmdnqlxduw02-03-6779 Telephone encounter Note* Telephone Encounter - Sugar Wellington MA - 02/02/2024 11:29 AM EDT PT INTO OFFICE AND SAID ALL OTHER RXS WERE SENT IN FOR 90 DAY SUPPLIES BUT AMLODIPINE WASN'T SENT IN? CAN YOU SEND IN A BEFORE THURSDAY THEY ARE LEAVING OUT OF STATE FOR THREE MONTHS. -SCR [facility] [id number] Miscellaneous Notes* Telephone Encounter - Sugar Wellington MA - 02/02/2024 11:29 AM EDT PT INTO OFFICE AND SAID ALL OTHER RXS WERE SENT IN FOR 90 DAY SUPPLIES BUT AMLODIPINE WASN'T SENT IN? CAN YOU SEND IN A 90DAY BEFORE THURSDAY THEY ARE LEAVING OUT OF STATE FOR THREE MONTHS. -SCR documented in this [facility]08-21-2024 History of Present illness Narrative* Nasir Ward [...] PM EDTAssociated Problem(s): Coronary artery disease involving spokane coronary artery of [place] heart with out angina pectoris (CMS/HCC) Follows [...] Problem List Items Addressed This Visit Hypertension ([facility]) - Primary Taking Amlodipine and Valsartan Denies orthostatic changes Continue amlodipine and valsartan Stage 3 chronic kidney disease (HCC) (CMS/HCC) Follows Nephrology Dr. Thakkar CKD stage 3. Continue to monitor and avoid nephrotoxic agents. Coronary artery disease involving sp[place] coronary artery of [place] heart without angina pectoris ([facility]) Follows Cardiology Lipid panel done in 09/2023- [...] very well. Denies complaints. documented in this [facility]08-21-2024 Instructions* Patient Instructions* Nasir Ward NP - 01/20/2024 6:00 PM EDT Referral sent to Dr. Bryant- Urology; They will call you! Call if you need anything! documented in this encounterNorthwest Medical [id number] NoteSUBJECTIVE: Chief complaint: Postoperative visit status post [...] he would like to stop taking his Nicolaus and his gabapentin. He was on Nicolaus 5/325 for many years per pain management. Dose was increased to Nicolaus 7.5 325 recently due to his increased back symptoms. Just taking gabapentin once per day. He does state that when he does not take his Nicolaus often enough, he seems to have a [...] , Rfl: ergocalciferol (Vitamin D-2) 1.25 MG (44482 Units) capsule, Take 1,250 mcg by mouth 1 (one) time per week., Disp: , Rfl: gabapentin (Neurontin) 100 mg capsule, Take 100 mg by mouth at bedtime., Disp: , Rfl: HYDROcodone-acetaminophen (Nicolaus) 7.5-325 mg tablet, 1 tablet., Disp: , [...] Reactions Ezetimibe GI intolerance Other reaction(s): Nausea/vomiting Jvrhqyz-Gsf-Rwx Reductase Inhibitors Other Muscle/Joint Pain Other Reaction(s): lipitor Exam: Vitals reviewed: Temp: [36.6 ???C (97.8 ???F)] 36.6 ???C (97.8 ???F) Heart Rate: [76] 76 BP: (146)/(73) 146/73 No intake/output data recorded. No intake/outpu (more content not included)...[facility]07-23-2024 Evaluation note* Diagnosis Prostate cancer (HCC)- Primary Malignant neoplasm of prostate Stage 3 chronic kidney disease, unspecified whether stage 3a or 3b CKD (HCC) documented in this encounter [facility]07-16-2024 Nurse Note* Diane Parada LPN - 12/15/2023 2:36 PM EDT AUA= 13 [facility]07-16-2024 Nurse Note* Diane Parada LPN - 12/15/2023 2:36 PM EDT AUA= 13 documented in this encounterMarymount Hospital07-16-2024 History of Present illness Narrative* Hyun Nazario MD - 12/15/2023 2:30 PM EDT Radiation Oncology - Follow Up Note PATIENT NAME: Yesenia Broussard PATIENT DIAGNOSIS: Prostate adenocarcinoma, initial PSA 9.95, biopsy [place] score 3 + 4 = 7 (grade [...] Nazario MD cc: Shaikh Dotty [address] [place] [address] documented in this encounterMarymount Hospital07-03-2024 NoteIn person visit Chief complaint: follow up from multi-level lumbar decompressive operations ATKA 78 y/o male - had multi-level surgeries [...] tablet 0 ergocalciferol (Vitamin D-2) 1.25 MG (33395 Units) capsule Take 1,250 mcg by mouth 1 (one) time per week. gabapentin (Neurontin) 100 mg capsule Take 100 mg by mouth at bedtime. HYDROcodone-acetaminophen (Nicolaus) 7.5-325 mg tablet 1 tablet. nitroglycerin (Nitrostat) [...] Reactions Ezetimibe GI intolerance Other reaction(s): Nausea/vomiting Vtlnmcv-Yew-Mok Reductase Inhibitors Other Muscle/Joint Pain Other Reaction(s): [...] 4-6 with either me or Joellen Madera MDReg[facility] Note Occupational Therapy Occupational Therapy Evaluation Patient [...] senile cataract Anxiety Atherosclerotic heart disease of sp[place] coronary artery without angina pectoris BPH with urinary obstruction Bradycardia BMI 28.0-28.9,adult Chest pressure Chronic low back pain Chronic pain disorder Chronic prostatitis Elevated random blood glucose level Gastroesophageal reflux disease without esophagitis Feeling of incomplete bladder emptying Erectile dysfunction Gross hematuria H/O prostate cancer Carotid artery disease ([facility]) CVA (cere[facility] vascular [facility]) ([facility]) Heart disease Hypertension PAD (peripheral artery disease) ([facility]) Peripheral vascular disease ([facility]) History of AL (myocardial infarction) HLD (hyperlipidemia) Intermittent claudication ([facility]) Kidney disease 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) Prostate cancer ([facility]) Nocturia Prostate nodule Recurrent UTI Stage 3 chronic kidney disease ([facility]) Tobacco abuse Smoker Umbilical hernia Unintentional weight change UTI symptoms S/P lumbar laminectomy Past Medical History: Diagnosis Date Adverse effect of anesthesia 2013 Trouble controlling PB - drops very low Coronary artery disease 2013 Dental disease partial denture Diverticulitis Diverticulitis of colon Diverticulosis Hypertension 1996 Kidney disease Myocardial infarction ([facility]) 1996 PONV (postoperative nausea and vomiting) Prostate cancer ([facility]) PVD (peripheral vascular disease) ([facility]) PVD (peripheral vascular disease) ([facility]) left leg stent Stroke ([facility]) 2012 Past Surgical History: Procedure Laterality Date [...] Functional Limits General Assessment General Assessment Hearing: [place] Home Living Home Living Type of Home: [...] Level of Function Prior Function Level of [place]: Independent with ADLs and functional transfers, Independent [...] No upper extremity supporte (more content not included)...[facility]06-19-2024 NotePhysical Therapy Evaluation Patient Name: Yesenia Broussard [...] senile cataract Anxiety Atherosclerotic heart disease of [place] coronary artery without angina pectoris BPH with urinary obstruction Bradycardia BMI 28.0-28.9,adult Chest pressure Chronic low back pain Chronic pain disorder Chronic prostatitis Elevated random blood glucose level Gastroesophageal reflux disease without esophagitis Feeling of incomplete bladder emptying Erectile dysfunction Gross hematuria H/O prostate cancer Carotid artery disease (CMS/HCC) CVA (cerebral vascular accident) ([facility]) Heart disease Hypertension PAD (peripheral artery disease) ([facility]) Peripheral vascular disease ([facility]) History of AL (myocardial infarction) HLD (hyperlipidemia) Intermittent claudication ([facility]) Kidney disease 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) Prostate cancer ([facility]) Nocturia Prostate nodule Recurrent UTI Stage 3 chronic kidney disease ([facility]) Tobacco abuse Smoker Umbilical hernia Unintentional weight change UTI symptoms S/P lumbar laminectomy Past Medical History: Diagnosis Date Adverse effect of anesthesia 2013 Trouble controlling PB - drops very low Coronary artery disease 2012 Dental disease partial denture Diverticulitis Diverticulitis of colon Diverticulosis Hypertension 1996 Kidney disease Myocardial infarction ([facility]) 1996 PONV (postoperative nausea and vomiting) Prostate cancer ([facility]) PVD (peripheral vascular disease) ([facility]) PVD (peripheral vascular disease) ([facility]) left leg stent Stroke ([facility]) 2012 Past Surgical History: Procedure Laterality Date [...] pt advised to a (more content not included)...[facility]06-18-2024 Note Patient: Yesenia Broussard Procedure Summary Date: 11/17/23 Room / Location: [facility] OPERATING ROOM 02 / [facility] Operating Room Anesthesia Start: 921 Anesthesia Stop: [...] PACU per anesthesia protocol. No notable events documented.[facility]06-18-2024 Note Peripheral IV Date/Time: 11/17/2023 10:25 AM Inserted by: French Coffman MD Placement Needle size: 18 G Laterality: left Location: hand Local anesthetic: GA. Site prep: alcohol Technique: anatomical landmarks Attempts: 1Un[facility]06-[facility]-2024 NoteAirway Date/Time: 11/17/2023 9:33 AM Urgency: elective Airway not difficult General Information and Staff Patient location during procedure: OR Resident/MULTICULTURAL INTERNSHIP/CAA: French Coffman MD Performed: resident/[employer]IC[employer] INTERNSHIP/CAA Indications and Patient Condition Indications for airway [...] (cm): 22 Number of attempts at approach: 1[facility]06-18-2024 NotePatient: Yesenia Broussard Procedure Information Date/Time: 11/17/23 0935 Procedures: L3-L4 Synovial Cyst Resection, Left L4-L5 Lateral Recess Decompression, and (Bilateral) Right L5 Foraminal Decompression (Bilateral) - C-arm, Prone on Robert Table Location: 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 (+) CVA (cerebral vascular accident) ([facility]) Pulmonary Long standing tobacco use, COPD Clinical [...] patient. Plan discussed with resident. Additional Equipment RequestsReg[facility]06-06-2024 Note SUBJECTIVE: Chief complaint: Preoperative visit for [...] He saw pain management and is taking Nicolaus, which helps some. Did physical therapy in [...] , Rfl: ergocalciferol (Vitamin D-2) 1.25 MG (70945 Units) capsule, Take 1,250 mcg by mouth 1 (one) time per week., Disp: , Rfl: gabapentin (Neurontin) 100 mg capsule, Take 100 mg by mouth at bedtime., Disp: , Rfl: HYDROcodone-acetaminophen (Nicolaus) 7.5-325 mg tablet, TAKE 1 TABLET BY [...] Reactions Ezetimibe GI intolerance Other reaction(s): Nausea/vomiting Keuxexx-Ive-Irk Reductase Inhibitors Other Muscle/Joint Pain Other Reaction(s): [...] 5/5 bilaterally. Hip flexor (more content not included)...[facility] 09-18-2023 Hospital Discharge instructions Patient Education 09/18/2023 [...] to keep your urine pale yellow. ?Take adkb-cdr-kadhvlo or prescription medicines. ?Eat foods that are high in fiber, such as beans, whole grains, and fresh fruits and vegetables. ?Limit foods that are high in fat and processed sugars, such as fried or sweet foods. General instructions Take efjh-war-kkxtdxz and prescription medicines only as told by [...] the muscles that help control urination. Take pupo-ybf-dothffe and prescription medicines only as told by your health care provider. Contact a health care provider if your symptoms do not improve or get worse. This information is not intended to replace advice given to you by your health care provider. Make sure you discuss any questions you have with your health care provider. Document Revised: 12/21/2020 Document Reviewed: 12/21/2020 [employer] Patient Education 2022 [employer]. Follow Up Care 07/07/2023 09:49:12 With:PRESTON MAK, Barbara Warner, URL Address: [address] [place] [address]- When: Unknown [facility] 04-03-2024 NoteIn person visit Chief complaint: had stent put in his left leg - was having some pain in the right leg ATKA: 78 y/o male He had some pain in the right leg His primary complaint is his back and hips He did have to have a stent in th left leg - for a vascular blockage The stent was done at [facility] His left leg was about 6 [...] about 2021 That was treated out by [facility] in [place] - Dr. Hernandez ROS: As above Past [...] about 2 packs per day. FU PRN MD Vasile Castro MDUnLouis Stokes [facility] 08-18-2023 History of Present illness Narrative* Chaim [...] his history are noted for prior inferior AL with revascularization of the RCA in [place] followed by bilateral carotid endarterectomies. More recently [...] normal. Judgment: Judgment normal. Allergies Ezetimibe and Tlwqfdl-fhv-hco reductase inhibitors Current Medications Current Outpatient Medications: [...] , Rfl: ergocalciferol (Vitamin D-2) 1.25 MG (87954 UT) capsule, Take 1 capsule (1,250 mcg) by mouth 1 (one) time per week., Disp: , Rfl: gabapentin (Neurontin) 100 mg capsule, Take 1 capsule (100 mg) by mouth 2 times a day., Disp: , Rfl: HYDROcodone-acetaminophen (Nicolaus) 7.5-325 mg tablet, Take 1 tablet by [...] Follow Up In Cardiology 4. History of AL (myocardial infarction) 5. BMI 28.0-28.9,adult 6. ASHD [...] exam, discussion and plan. documented in this [facility] Work Phone: 1(608) 662-192503-19-2024 Instructions* Patient Instructions* Shahla Foster MA - [...] time of your visit. documented in this [facility]Prem[facility] Work Phone: 1([phone]) 155-202301-14-2024 NoteHNO ID: [id number] Author: KODI REYNOLDS MD Service: ? Author [...] 77-year-old male who recently moved from [place] to [place]. He reports longstanding history of back and [...] 0 0 0 PHQ- (more content not included)...[facility] [id number] History of Present illness Narrative* Kodi Reynolds [...] 77-year-old male who recently moved from [place] to [place]. He reports longstanding history of back and [...] BICEPS TRICEPS DELTS Wrist Ext Wrist Flex Spinner Frame HI R 5 5 5 5 5 [...] activities? No Bert Harper documented in this encounterMarymount Hospital01-12-2024 NoteHNO ID: [id number] Author: ?, ?, ? Service: ? Author [...] completing routine daily living activities? No Bert HarperRiverview Health [id number] History of Present illness Narrative * Chaim Grayson DO - 06/04/2023 9:50 AM EST Cardiology Consultation- New Consult Reason for referral: 77-year-old gentleman seen in cardiology consultation at the request of primary care physician Dr. Storm, for further evaluation regarding chest discomfort. Patient moved from [place] to the local area approximately 2 years ago. He has a history of previous inferior AL in the mid with revascularization of the RCA in [place] followed by stroke with subsequent bilateral carotid [...] ischemia given his risk factors and previous AL and revascularization on follow-up thereafterwards HPI: Yesenia Renteria is a 77 y.o. male Past Medical History: He has a past medical history of Abnormal ECG (05-20-2023), Cancer ([facility]) (07/07/2021), Chronic kidney disease, Coronary artery disease, Hypertension, Myocardial infarction ([facility]) (10/30/1996), and Stroke ([facility]) (01/31/12). Surgical History: He has a past [...] Alcohol use: Not Currently Allergies: Ezetimibe and Grtvozs-hpe-qys reductase inhibitors Current Medications: Current Outpatient Medications: [...] , Rfl: ergocalciferol (Vitamin D-2) 1.25 MG (42110 UT) capsule, Take 1 capsule (1,250 mcg) by mouth 1 (one) time per week., Disp: , Rfl: HYDROcodone-acetaminophen (Nicolaus) 7.5-325 mg tablet, Take 1 tablet by [...] signing my name below, Mary Ellen Yanez Agus TYSON , Scribe attest that this documentation has been prepared under the direction and in the presence of Kaya Grayson DO. documented in this encounterPrem[facility] Work Phone: 1(618) 755-636101-04-2024 Instructions* Patient Instructions* Yunier Mathur MA - [...] time of your visit. documented in this encounterPrem[facility] Work Phone: [phone] 120-185101-04-2024 Evaluation note* Diagnosis Hypertension, unspecified type Stage 3 chronic kidney disease, unspecified whether stage 3a or 3b CKD (CMS/HCC) Mixed hyperlipidemia Bilateral carotid artery disease, unspecified type (CMS/HCC) Smoker Tobacco use disorder Chest pressure Other chest pain documented in this encounter [facility] Work Phone: 1(718) 517-587012-20-2023 Miscellaneous Notes* Telephone Encounter - Claire Koroma [...] HOSPITAL neurosurgeon. Please cancel the referral to [facility] neuro[facility]geon perpatient request. Diane Parada RN * Telephone Encounter - Margaret Castle - 05/19/2023 2:11 PM EST Neelam when order is signed can you please send records to Dr Marvin at [facility] thank you! Facesheet in your box documented in this encounterMarymount Hospital12-19-2023 Miscellaneous Notes* Telephone Encounter - Julianna Yuan RN - 05/19/2023 10:45 AM EST Patient is requesting referral to Surgeon. He looks like had MRI of Lumbar spine on 02/20/2023 but no images in system. We do have report. documented in this encounterMarymount Hospital11-21-2023 Hospital Discharge instructions Patient Education 04/21/2023 [...] Follow these instructions at home: Medicines Take cabh-uao-vtfayqx and prescription medicines only as told by [...] provider. Document Revised: 08/14/2021 Document Reviewed: 08/14/2021 [employer] Patient Education 2022 [employer]. Follow Up Care 02/11/2023 15:24:55 With:BRITNI ENCINAS, CLAIRE Boswell, URL Address: [address] [facility] [place] [address] [phone] When: Unknown [facility] 11-16-2023 Evaluation note* Encounter Date Diagnosis [...] in 6 months with repeat surveillance ABIs. [email or web address] Other [facility]* Encounter Date Diagnosis Assessment Notes [...] will schedule this in the near future. [email or web address] Other 09-20-2023 Evaluation note* Encounter Date Diagnosis [...] once again all his questions were addressed. [email or web address] Other 09-13-2023 Hospital Discharge instructions Patient Education [...] urethra. Follow these instructions at home: Take ntmc-tbm-hkmqwzs and prescription medicines only as told by [...] provider. Document Revised: 12/04/2021 Document Reviewed: 12/04/2021 [employer] Patient Education 2022 [employer]. Follow Up Care 01/05/2023 13:14:43 With:BRITNI ENCINAS, CLAIRE Boswell, URL Address: [address] [place] [address] When:Within 8 Week(s) [facility] 08-22-2023 Miscellaneous Notes* Telephone Encounter - [...] Team tab: Yes Patient appears on the [facility] SW Report for a PHQ-9 score of [...] as appropriate. JENNIE Lange documented in this encounterMarymount Hospital08-21-2023 History of Present illness Narrative* Jose Nichols DO - 01/19/2023 12:49 PM EDT Images from the original note were not included. [facility] - Medical [...] lumbar decompression and partial disce[place] L4-5 at [place] . Now follows with Pain Management in [place], [place]. Received opinion from his son's spine surgeon Dr. Farias in [place]. After review of imaging he was offered L4-S1 ALIF with posterior L4-S1 robotic assisted fusion. Since they do not live in [place] he was recommended to seek consultation at [...] spine interventions: -Lumbar procedures with Pain Management [facility] Dr. Oliva. -RFA ordered following MBB #2 01/07/22 BL L2, L3, L4, L5 MBB - 95% relief same day 12/17/21 BL L2, L3, L4, L5 MBB - 90% relief x 1 hour, then 50% for a few hours -Lumbar injections in [place] prior to surgery. Had at least a few injections, including RFA, LESI, SIJ, he remembers one of the injections helping. Prior spine surgery: L4-5 Previously treated by: -Pain Management at [facility] in [place], [place], Dr. Barbara Farias on 07/07/22 virtual [...] See below Social: Home life: Moved to [place] 2020. Litigation: No Workers' Compensation: No YELLOW [...] independently reviewed 11/26/21 MRI lumbar spine wo [facility]: The bones of the lumbar spine [...] nerve root. 11/26/21 MRI prostate w/wo contrast, [facility]: Bones: No suspicious bony lesion. Normal appearing [...] 2023 TIME: 12:50 PM documented in this encounterMarymount Hospital08-18-2023 Miscellaneous Notes* Telephone Encounter - Julianna Yuan RN - 01/16/2023 8:13 AM EDT Left message on voicemail for patient to call office back or to read Raise message. * Telephone Encounter - Julianna Yuan [...] PM EDT Yesenia Broussard is calling Jose G DO Gerber today Patient spouse called in stating they [...] calling: self Call patient at: at home [phone] (home) [phone] (cell) Was an appointment scheduled: No Closing statement: Results or non-symptom based questions: Thank you for calling [facility], your call will be returned within the next business day. Paul Cat documented in this encounterMarymount Hospital08-08-2023 Miscellaneous Notes* Telephone Encounter - Livier Barrera RN - 01/06/2023 8:13 AM EDT Please sign pended new order for Lumbar Spine MRI as it needs to state that it needs to be done with anesthesia. Thank you Livier Barrera RN documented in this encounterMarymount Hospital08-07-2023 Miscellaneous Notes* Telephone Encounter - Evelyn Chamberlain RN - 01/05/2023 4:52 PM EDT Spoke to patient's . Explained differences between anxiolysis and full anesthesia. Per patient's , patient needs full anesthesia-will not tolerate procedure with anxiolysis alone. Communicated to office that new order needs to be placed for MRI with anesthesia, and will need to be scheduled at [facility]. documented in this encounterMarymount Hospital07-05-2023 Hospital Discharge instructions Patient Education 12/03/2022 [...] to keep your urine pale yellow. ?Take wzvx-bzj-cmpxcad or prescription medicines. ?Eat foods that are high in fiber, such as beans, whole grains, and fresh fruits and vegetables. ?Limit foods that are high in fat and processed sugars, such as fried or sweet foods. General instructions Take hcff-wqn-pcnzzgp and prescription medicines only as told by [...] the muscles that help control urination. Take mort-ouz-tbzstel and prescription medicines only as told by your health care provider. Contact a health care provider if your symptoms do not improve or get worse. This information is not intended to replace advice given to you by your health care provider. Make sure you discuss any questions you have with your health care provider. Document Revised: 12/21/2020 Document Reviewed: 12/21/2020 [employer] Patient Education 2022 [employer]. Follow Up Care 10/28/2022 10:11:31 With:BRITNI ENCINAS, CLAIRE Boswell, URL Address: [address] [facility] [place] [address] When:Within 5 Week(s) [facility] 06-23-2023 Miscellaneous Notes* Telephone Encounter - Kadi Cotton - 11/21/2022 11:36 AM EDT Patient has been scheduled & notified of appointment. Kadi Cotton * Telephone Encounter - Kadi Cototn - 11/19/2022 9:35 AM EDT Contacted patient [...] completing consult. Kadi Cotton documented in this encounterMarymount Hospital06-21-2023 History of Present illness Narrative* Elizabeth [...] cancer. Elizabeth Freire APRN.GILBERTO documented in this encounterMarymount Hospital06-21-2023 Evaluation note* Diagnosis Prostate cancer (HCC) Malignant neoplasm of prostate Stage 3 chronic kidney disease, unspecified whether stage 3a or 3b CKD (HCC) documented in this encounter [facility]06-20-[facility] Nurse Note* Nadja Guardado - 11/18/2022 2:34 PM EDT Clinical questionnaires incomplete due to Patient was roomed by provider documented in this encounterMarymount Hospital06-20-2023 Nurse Note* Livier Barrera RN - 11/18/2022 1:32 PM EDT AUA 21 Livier Barrera RN documented in this encounterMarymount Hospital06-20-2023 History of Present illness Narrative* G [...] Nazario MD cc: Shaikh Dotty [address] [place] [address] documented in this encounterMarymount Hospital01-06-2023 Miscellaneous Notes* Telephone Encounter - STEPHANIE [...] call back. JENNIE Lange documented in this encounterMarymount Hospital01-05-2023 Nurse Note* Kelly Hector - 06/05/2022 12:40 PM EST Back office UA test performed. Results entered in [employer] and doctor notified. Kelly Hector MA documented in this encounterMarymount Hospital12-15-2022 Miscellaneous Notes* Telephone Encounter - Diane Parada LPN - 05/15/2022 1:51 PM EST Nena, pt's , notified to have Dexter complete the Cipro prescription and have urine rechecked in 2-3 weeks. Call transferred to [facility] to schedule lab appt. Dr. Nazario, please sign pended lab orders. Diane Parada LPN documented in this encounterMarymount Hospital12-15-2022 NoteCONSULTATION CONSULTATION DATE: 05/15/2022 HISTORY OF [...] has a son who lives in [place] with the same symptoms and gained relief after seeing a specialist and having surgery. Medications include Lyrica 75 mg t.i.d., Nicolaus 5/325 t.i.d. and baclofen 10 mg q.h.s. [...] going to spend three months in [place] with his son in early July and he wishes to see the specialist out there. I told him we would continue to medically manage him, which he does agree to. Patient will call the office for an appointment upon return from [place].[facility] [id number] History of Present illness Narrative* STEPHANIE Lange - 04/30/2022 3:01 PM EST SOCIAL WORK FOLLOW UP NOTE: [facility] Date of service:04/30/22 TOPICS ADDRESSED: community resources PLAN: Continue follow up as needed Assigned SW listed in Care Team tab: Yes SW completed and faxed a mileage reimbursement log to [facility] for the month of April 2022. JENNIE Lange documented in this encounterMarymount Hospital11-23-2022 History of Present illness Narrative* Hyun Nazario MD - 04/23/2022 12:00 AM EST [facility] Radiation Oncology Department RADIATION ONCOLOGY - [...] / DELIA :35 PM documented in this encounterMarymount Hospital11-21-2022 History of Present illness Narrative* Hyun Nazario [...] treatment. Hyun Nazario MD documented in this encounterMarymount Hospital11-14-2022 History of Present illness Narrative* Hyun Nazario MD - 04/14/2022 3:05 PM EST Radiation Oncology - On Treatment Review (OTR) Note PATIENT NAME: Yesenia Broussard PATIENT DIAGNOSIS: Prostate adenocarcinoma, initial PSA 9.95, biopsy Rainsville score 3 + 4 = 7 (grade [...] outlined. Hyun Nazario MD documented in this encounterMarymount Hospital11-07-2022 History of Present illness Narrative* Hyun Nazario MD - 04/07/2022 11:03 AM EST Radiation Oncology - On Treatment Review (OTR) Note PATIENT NAME: Yesenia Broussard PATIENT DIAGNOSIS: Prostate adenocarcinoma, initial PSA 9.95, biopsy Rainsville score 3 + 4 = 7 (grade [...] outlined. Hyun Nazario MD documented in this encounterMarymount Hospital10-31-2022 History of Present illness Narrative* Hyun Nazario [...] outlined. Hyun Nazario MD documented in this encounterMarymount Hospital10-31-2022 History of Present illness Narrative* STEPHANIE [...] March 2022. JENNIE Lange documented in this encounterMarymount Hospital10-27-2022 Nurse Note* Livier Barrera RN - [...] assist. Livier Barrera RN documented in this encounterMarymount Hospital10-24-2022 History of Present illness Narrative* Hyun Nazario [...] outlined. Hyun Nazario MD documented in this encounterMarymount Hospital10-18-2022 History of Present illness Narrative* Hyun Nazario MD - 03/18/2022 3:58 PM EDT Radiation Oncology - On Treatment Review (OTR) Note PATIENT NAME: Yesenia Broussard PATIENT DIAGNOSIS: Prostate adenocarcinoma, initial PSA 9.95, biopsy Rainsville score 3 + 4 = 7 (grade [...] prescribed. Hyun Nazario MD documented in this encounterMarymount Hospital10-18-2022 Miscellaneous Notes* Telephone Encounter - Diane Parada LPN - 03/18/2022 8:31 AM EDT CBC order the second week during radiation is pending your approval. Diane Parada LPN documented in this encounterMarymount Hospital10-13-2022 NoteCONSULTATION PROCEDURE DATE: 03/13/2022 PREOPERATIVE DIAGNOSIS: [...] the procedure well with no overt complications.[facility] [id number] NoteCONSULTATION CONSULTATION DATE: 03/13/2022 HISTORY OF PRESENT [...] current medications include Lyrica 75 mg t.i.d., Nicolaus 5/325 t.i. d., baclofen 10 mg q.h.s. [...] and will return in six weeks' time.[facility] [id number] History of Present illness Narrative* STEPHANIE Lange [...] as appropriate. JENNIE Lange documented in this encounterMarymount Hospital10-12-2022 History of Present illness Narrative* Hyun Nazario MD - 03/12/2022 12:00 AM EDT YESENIA BROUSSARD [id number] 03/12/2022 [facility] Department of Radiation Oncology Treatment Planning [...] Nazario M.D. 21:57 PM documented in this encounterMarymount Hospital10-04-2022 Miscellaneous Notes* Telephone Encounter - STEPHANIE [...] as appropriate. JENNIE Lange documented in this encounterMarymount Hospital10-03-2022 History of Present illness Narrative* Hyun Nazario MD - 03/03/2022 10:42 AM EDT Unable to complete simulation due to anxiety related to claustrophobia. Prescription for Valium given. We will reschedule. documented in this encounterMarymount Hospital09-27-2022 Miscellaneous Notes* Telephone Encounter - Margaret Haas [...] Thanks Diane Parada LPN documented in this encounterMarymount Hospital09-12-2022 Miscellaneous Notes* Telephone Encounter - Livier [...] Thanks Maddy Waite MA documented in this encounterMarymount Hospital08-25-2022 NoteCONSULTATION CONSULTATION DATE: 01/23/2022 HISTORY OF [...] ice. Medications include baclofen 10 mg q.h.s., Nicolaus 5/325 t.i.d., Lyrica 75 mg b.i.d. Patient's [...] followed up in the clinic post procedure.[facility] [id number] Miscellaneous Notes* Telephone Encounter - Diane Parada [...] advise. Diane Parada LPN documented in this encounterMarymount Hospital07-28-2022 NoteCONSULTATION CONSULTATION DATE: 12/26/2021 HISTORY OF [...] His medications include baclofen 10 mg q.h.s., Nicolaus 5/325 t.i.d. and Lyrica 50 mg b.i.d. [...] and he is in agreement to this.[facility] [id number] Nurse Note* Diane Parada LPN - 12/10/2021 9:20 AM EDT AUA= 10 documented in this encounterMarymount Hospital07-12-2022 History of Present illness Narrative* Hyun Nazario [...] underwent TURP on 06/06/2021. Pathology demonstrating adenocarcinoma, Rainsville 7 (3+4), involving 21 to 30% of submitted tissue. No evidence of intraductal component, or LVI. 6 to 10% percentage of Rainsville pattern 4 Repeat PSA 11/04/2021 3.73. MRI [...] ASSESSMENT/PLAN: Prostate adenocarcinoma, initial PSA 9.95, biopsy Rainsville score 3 + 4 = 7 (grade [...] cc: Shaikh Dotty [address] [place] [address] Barbara Johnston [address] [place] [address] documented in this encounterMarymount Hospital06-06-2022 Evaluation + Plan note Diagnostic Tests Pending * PSA Total 11/04/21 [facility] 06-06-2022 Hospital Discharge instructions Patient Education [...] 05/18/2006 Document Revised: 02/04/2019 Document Reviewed: 04/17/2017 [employer] Patient Education 2020 [employer]. 11/04/2021 10:39:39 Benign Prostatic Hyperplasia Benign Prostatic [...] urethra. Follow these instructions at home: Take mwwl-qsb-mwxbudx and prescription medicines only as told by [...] 05/18/2006 Document Revised: 04/12/2019 Document Reviewed: 06/22/2017 [employer] Patient Education 2020 [employer] 11/04/2021 10:39:34 Prostate Cancer Prostate Cancer [...] who: Are older than age 65. Are -[place]. Are obese. Have a family history of [...] cells. Follow these instructions at home: Take rneb-bhj-rwgkmxu and prescription medicines only as told by [...] 05/18/2006 Document Revised: 04/30/2018 Document Reviewed: 01/26/2017 [employer] Patient Education [employer]. Follow Up Care 07/01/2021 09:43:21 With:PRESTON MAK, Barbara Warner, URL Address: [facility] [address] [place] [address]- [phone] When: Unknown Comments:Will schedule MRI of prostate w/wo and Perineal prostate biopsy. [facility] 05-26-2022 Evaluation note* Encounter Date Diagnosis [...] statins. Monitor LFTs and lipid profile periodically. [email or web address] Other Evaluation + Plan note Future Appointments Appointment Date:01/06/2023 09:15:00 AM Scheduled Provider:CLAIRE JAMES PA-C Location:[facility] Appointment Type:URO Office Visit [facility] evaluation + Plan note Future Appointments Appointment Date:04/21/2023 08:30:00 AM Scheduled Provider:CLAIRE JAMES PA-C Location:[facility] Appointment Type:URO Office Visit [facility] evaluation + Plan note Future Appointments Appointment Date:07/07/2023 09:00:00 AM Scheduled Provider:CLAIRE JAMES PA-C Location:[facility] Appointment Type:URO Office Visit Diagnostic Tests Pending * Electrolyte Panel 04/21/23 [facility] evaluation + Plan note Future Appointments Appointment Date:07/07/2023 09:00:00 AM Scheduled Provider:CLAIRE JAMES PA-C Location:[facility] Appointment Type:URO Office Visit Diagnostic Tests Pending * [facility]ments Appointment Date:04/01/2024 10:45:00 AM Scheduled Provider:Barbara JOHNSTON MD Location:[facility] Appointment Type:URO Office Visit Diagnostic Tests Pending * PSA Total 12/31/23 [facility] evaluation + Plan note Future Appointments Appointment Date:04/18/2024 12:45:00 PM Scheduled Provider:Barbara JOHNSTON MD Location:[facility] Appointment Type:URO Office Visit Diagnostic Tests Pending * Urine Culture 04/07/24 [facility] Evaluation + Plan note Future Appointments Appointment Date:04/18/2024 12:45:00 PM Scheduled Provider:Barbara JOHNSTON MD Location:[facility] Appointment Type:URO Office Visit [facility] evaluation + Plan note Future Appointments Appointment Date:04/21/2025 10:15:00 AM Scheduled Provider:Barbara JOHNSTON MD Location:[facility] Appointment Type:URO Office Visit Diagnostic Tests Pending * PSA Total 04/18/24 [facility] evaluation + Plan note Future Appointments Appointment Date:04/21/2025 10:15:00 AM Scheduled Provider:Barbara JOHNSTON MD Location:[facility] Appointment Type:URO Office Visit Diagnostic Tests Pending * Urine Culture 08/08/24 [facility] evaluation + Plan note Future Appointments Appointment Date:04/21/2025 10:15:00 AM Scheduled Provider:Barbara JOHNSTON MD Location:[facility] Appointment Type:URO Office Visit Diagnostic Tests Pending * Urine Culture 08/22/24 [facility] evaluation + Plan note Future Appointments Appointment Date:04/21/2025 10:15:00 AM Scheduled Provider:Barbara JOHNSTON MD Location:[facility] Appointment Type:URO Office Visit Diagnostic Tests Pending * Urine Cytology ([facility]) 08/29/24 [facility] evaluation note* Diagnosis Malignant neoplasm of prostate (HCC)- Primary Malignant neoplasm of prostate documented [facility]* Diagnosis Malignant neoplasm of prostate (HCC)- Primary Malignant neoplasm of prostate documented [facility] this encounter [facility]* Diagnosis Malignant neoplasm of prostate (HCC)- Primary Malignant neoplasm of prostate [facility]* Diagnosis Malignant neoplasm of prostate (HCC)- Primary Malignant neoplasm of prostate [facility] encounter [facility]* Diagnosis Malignant neoplasm of prostate (HCC) Malignant neoplasm of prostate documented in this encounter [facility] note* Diagnosis Malignant neoplasm of prostate (HCC)- Primary Malignant neoplasm of prostate documented in this encounter [facility] note* Diagnosis Malignant neoplasm of prostate (HCC)- Primary Malignant neoplasm of prostate documented in this encounter [facility] note* Diagnosis Malignant neoplasm of prostate (HCC)- Primary Malignant neoplasm of prostate documented in this encounter [facility] noteNo assessment information [facility] Work Phone: Evaluation note* Diagnosis Hematuria, unspecified type- Primary Malignant neoplasm of prostate (HCC) Malignant neoplasm of prostate documented in this encounter [facility] note* Diagnosis Urinary tract infection without hematuria, site unspecified- Primary documented in this encounter [facility] note* Diagnosis History of prostate cancer- Primary Personal history of malignant neoplasm of prostate Spinal arthritis Spondylosis of unspecified site without mention of myelopathy Spinal stenosis of lumbar region, unspecified whether neurogenic claudication present documented in this encounter [facility] note* Diagnosis Spinal stenosis of lumbar region without neurogenic claudication- Primary Spinal stenosis, lumbar region, without neurogenic claudication documented in this encounter [facility] note* Diagnosis Spinal stenosis of lumbar region, unspecified whether neurogenic claudication present- Primary documented in this encounter [facility] note* Diagnosis Spinal stenosis, lumbar region with neurogenic claudication- Primary Foraminal stenosis of lumbar region Spinal stenosis, lumbar region, without neurogenic claudication Peripheral artery disease (HCC) Peripheral vascular disease, unspecified Prostate cancer (HCC) Malignant neoplasm of prostate documented in this encounter [facility] noteNo InformationNost. [facility] [employer] Other Evaluation note* Diagnosis Spinal stenosis, lumbar region with neurogenic claudication- Primary Foraminal stenosis of lumbar region Spinal stenosis, lumbar region, without neurogenic claudication documented in this encounter [facility] note* Diagnosis Spondylolisthesis of lumbar region- Primary Acquired spondylolisthesis documented in this encounter [facility] note* Diagnosis Hypertension, unspecified type Mixed hyperlipidemia Bilateral carotid artery disease, unspecified type (CMS/HCC) History of AL (myocardial infarction) Old myocardial infarction BMI 28.0-28.9,adult ASHD (arteriosclerotic heart disease) Coronary atherosclerosis of unspecified type of vessel, [place] or graft PVD (peripheral vascular disease) (CMS/HCC) Unspecified peripheral vascular disease Smoker Tobacco use disorder Chest pain, unspecified type documented in this encounter [facility] Work Phone: Evaluation note* Diagnosis Onset Date Resolution Status Current every day smoker acu te PAD (peripheral artery disease) acute [facility] Work Phone: Evaluation note* Diagnosis Onset Date Resolution Status Anemia of renal disease acut e CKD (chronic kidney disease) stage 3, GFR 30-59 ml/min acute [id number] acute Secondary hyperparathyroidism acute UTI (urinary tract infection) [facility] Work Phone: Evaluation note* Diagnosis Primary [...] neoplasm of prostate Coronary artery disease involving [place] coronary artery of [place] heart without angina pectoris (CMS/HCC) H/O prostate cancer Mixed hyperlipidemia (CMS/HCC) Mixed hyperlipidemia Chronic bilateral low back pain with bilateral sciatica Coronary artery disease involving [place] coronary artery of [place] heart without angina pectoris (CMS/HCC)- Primary PAD (peripheral artery disease) (CMS/HCC) Unspecified peripheral vascular disease Primary hypertension (CMS/HCC) Unspecified essential hypertension Stage 3a chronic kidney disease (HCC) (CMS/HCC) Lumbar stenosis with neurogenic claudication Mixed hyperlipidemia (CMS/HCC) Mixed hyperlipidemia Elevated random blood glucose level Unintentional weight change Gastroesophageal reflux disease without esophagitis Esophageal reflux Coronary artery disease involving [place] coronary artery of [place] heart without angina pectoris (CMS/HCC)- Primary Stage 3a chronic kidney disease (HCC) (CMS/HCC) Lumbar stenosis with neurogenic claudication Primary hypertension (CMS/HCC)- Primary Unspecified essential hypertension Coronary artery disease involving [place] coronary artery of [place] heart without angina pectoris (CMS/HCC) Stage 3a [...] disease (HCC) (CMS/HCC) documented in this encounter [facility] HealthcareEvaluation note* Diagnosis Primary hypertension (CMS/HCC)- Primary Unspecified essential hypertension Coronary artery disease involving [place] coronary artery of [place] heart without angina pectoris (CMS/HCC) Stage 3a chronic kidney disease (HCC) (CMS/HCC) Gastroesophageal reflux disease without esophagitis Esophageal reflux Tobacco abuse Tobacco use disorder Prostate cancer (CMS/HCC) Malignant neoplasm of prostate Benign prostatic hyperplasia with lower urinary tract symptoms, symptom details unspecified documented in this encounter [facility] HealthcareEvaluation note* Diagnosis Primary hypertension (CMS/HCC) Unspecified essential hypertension documented in this encounter [facility] HealthcareEvaluation note* Diagnosis Onset Date Resolution Status Admit Date Anemia of renal disease acute M 2024 10:35am CKD (chronic kidney disease) stage 3, GFR 30-59 ml/min acute August 15, 2024 10:35am Hypertensive chronic kidney disease with stage 1 through stage 4 chronic ki acute August 15, 2024 10:35am Microscopic hematuria acute Jul 10:35am Secondary hyperparathyroidism acute August 15, 2024 10:35am [facility] Work Phone: Evaluation note* Diagnosis Mixed hyperlipidemia- Primary Bilateral carotid artery disease, unspecified type Hypertension, unspecified type BMI 28.0-28.9,adult Smoker Tobacco use disorder Prostate cancer (Multi) Malignant neoplasm of prostate Chronic kidney disease, stage 3b (Multi) ASHD (arteriosclerotic heart disease) Coronary atherosclerosis of unspecified type of vessel, [place] or graft PVD (peripheral vascular disease) ([facility]) Unspecified peripheral vascular disease documented in this encounter [facility] Work Phone: Evaluation note* Diagnosis Onset [...] Secondary hyperparathyroidism acute February 20, 2025 11:31am [facility] Work Phone: History general Narrative - Reported* [...] History PROSTATE SURGERY Hospitalization History SEE ABOVE [email or web address] Other [facility] general Narrative - Reported* Type Description Date [...] ANGIOPLASTY LT 03/2023 Hospitalization History SEE ABOVE [email or web address] Other Hospital course Narrative No data available for this section [facility] Hospital Discharge instructions No data available for this section [facility] No data available for this section [facility] Consultation (Routine) - Authorized Specialty Diagnoses / Procedures Referred By Renata t Referred To Contact Cardiology Diagnoses Hypertension, unspecified type Mixed hyperlipidemia Bilateral carotid artery disease, unspecified type (CMS/HCC) Procedures Follow Up In Cardiology Chaim Grayson DO [address] [facility] [address], [address] [place] [address] Chaim Grayson DO [address] [facility] [address], [address] [address] Referral ID Status Reason Start Date Expiration Date V isits Requested Visits Authorized [id number] Authorized 06/04/2023 06/03/2024 1 1 * Cardiovascular (Routine) - Pending Review Specialty Diagnoses / Procedures Referred By Contac t Referred To Contact Diagnoses Mixed hyperlipidemia Bilateral carotid artery disease, unspecified type (CMS/HCC) Procedures ECG 12 Lead Chaim Grayson DO [address] [facility] [address], [address] [address] Referral ID Status Reason Start Date Expiration Date V isits Requested Visits Authorized [id number] Pending Review 06/04/2023 06/03/2024 1 1 * Consultation (Routine) - Authorized Specialty Diagnoses / Procedures Referred By Contac t Referred To Contact Cardiology Diagnoses Hypertension, unspecified type Bilateral carotid artery disease, unspecified type (CMS/HCC) Procedures Follow Up In Cardiology Chaim Grayson DO [address] [facility] [address], [address] [address] Referral ID Status Reason Start Date Expiration Date V isits Requested Visits Authorized [id number] Authorized 06/04/2023 06/03/2024 1 1 * Cardiac Stress Testing (Routine) - Pending Review Specialty Diagnoses / Procedures Referred By Contac t Referred To Contact Radiology Diagnoses Hypertension, unspecified type Bilateral carotid artery disease, unspecified type (CMS/HCC) Chest pressure Procedures Nuclear Stress Test CHG MYOCARDIAL SPECT MULTIPLE STUDIES CHG MYOCARDIAL SPECT SINGLE STUDY AT REST OR STRESS Chaim Grayson DO [address] [facility] [address], [address] [address] Referral ID Status Reason Start Date Expiration Date V isits Requested Visits Authorized [id number] Pending Review 06/04/2023 06/03/2024 5 5 [facility] Work Phone: Reason for referral (narrative)* Consultation (Routine) - Pending Review Specialty Diagnoses / Procedures Referred By Renata t Referred To Contact Urology Diagnoses Prostate cancer (CMS/HCC) Benign prostatic hyperplasia with lower urinary tract symptoms, symptom details unspecified Procedures LA OFFICE/OUTPATIENT NEW HIGH MDM 60 MINUTES Nasir Ward NP [address] [place] [address] Travis Bryant MD [address] [place] [address] Referral ID Status Reason Start Date Expiration Date Visits Requested Visits Authorized [id number] Pending Review Specialty Services Required 01/20/2024 07/18/2024 1 1 Scheduling Instructions Please include OV note from today and from Dr. Johnston office VLADIMIR Allen for referral (narrative)No reason for [facility] Summary Purpose Family History No [...] kidney disease) stage 3, GFR 30-59 ml/min [id number] Secondary hyperparathyroidism UTI (urinary tract infection) Chief [...] Referral Specialty Diagnoses / Procedures Referred By Renata staton Referred To Contact Diagnoses Bilateral carotid artery disease, unspecified type (CMS/HCC) History of AL (myocardial infarction) ASHD (arteriosclerotic heart disease) PVD (peripheral vascular disease) (CMS/HCC) Chest pain, unspecified type Procedures ECG 12 Lead Chaim Grayson DO [address] [place] [address], [address] [address] Referral ID Status Reason Start Date Expiration Date V isits Requested Visits Authorized [id number] Authorized 08/18/2023 08/17/2024 1 1 Specialty Diagnoses / Procedures Referred By Renata staton Referred To Contact Cardiology Diagnoses Bilateral carotid artery disease, unspecified type (CMS/HCC) Procedures Follow Up In Cardiology Chaim Grayson DO [address] [place] [address] 2, [address] [address] Chaim Grayson DO [address] [facility] [address], [address] [place] [address] Referral ID Status Reason Start Date Expiration Date V isits Requested Visits Authorized [id number] Authorized 08/18/2023 08/17/2024 1 1 Specialty Diagnoses / Procedures Referred By Contac t Referred To Contact [facility] [place] Diagnoses Spondylolisthesis of lumbar region Procedures CONSULT TO [facility] ([facility]) OFFICE/OUTPATIENT [facility] 60 MINUTES Kodi Reynolds MD [address] [place], [place] [id number] Referral ID Status Reason Start Date Expiration Date Visits Requested Visits Authorized [id number] Pending Review PCP Requested Referral 06/12/2023 06/11/2024 1 1 Specialty Diagnoses / Procedures Referred By Contac t Referred To Contact Diagnoses Spinal stenosis, lumbar region with neurogenic claudication Foraminal stenosis of lumbar region Procedures CONSULT TO SPINE SURGERY OFFICE/OUTPATIENT [facility] 60-74 MINUTES Jose Nichosl DO [address] [id number] Referral ID Status Reason Start Date Expiration Date Visits Requested Visits Authorized [id number] Pending Review PCP Requested Referral 3 05/18/2024 1 1 Specialty Diagnoses / Procedures Referred By Contac t Referred To Contact MR IMAGING Diagnoses Spinal stenosis of lumbar region, unspecified whether neurogenic claudication present Procedures MRI LUMBAR SPINE WO/W IVCON MRI SPINAL CANAL LUMBAR W/O & W/CONTR MATRL Hyun Nazario MD [facility] [place] [address] Mr Imaging Referral ID Status Reason Start Date Expiration Date Visits Requested Visits Authorized [id number] Pending Review Auto-Generat ed Referral 11/19/2022 12/19/2023 1 1 Specialty Diagnoses / Procedures Referred By Contac t Referred To Contact Neurosurgery Diagnoses Spinal arthritis Procedures CONSULT TO NEUROSURGERY OFFICE/OUTPATIENT [facility] 60-74 MINUTES Hyun Nazario MD [address] [place] [address] Referral ID Status Reason Start Date Expiration Date Visits Requested Visits Authorized [id number] Pending Review PCP Requested Referral 11/18/2022 11/18/2023 [...] section and content) DATE CREATED AUTHOR 06/12/2021 [facility] DATE CREATED AUTHOR AUTHOR'S ORGANIZ ATION 03/27/2022 [facility] DATE CREATED AUTHOR AUTHOR'S ORGANIZ ATION 11/07/2022 [facility] DATE CREATED AUTHOR AUTHOR'S ORGANIZ ATION 01/06/2023 [facility] DATE CREATED AUTHOR AUTHOR'S ORGANIZ ATION 06/16/2023 [facility] DATE CREATED AUTHOR AUTHOR'S ORGANIZ ATION 06/29/2023 [facility] DATE CREATED AUTHOR AUTHOR'S ORGANIZ ATION 08/17/2023 [facility] DATE CREATED AUTHOR AUTHOR'S ORGANIZ ATION 04/11/2024 [facility] DATE CREATED AUTHOR AUTHOR'S ORGANIZ ATION 04/21/2024 [facility] DATE CREATED AUTHOR AUTHOR'S ORGANIZ ATION 07/15/2024 [facility] DATE CREATED AUTHOR AUTHOR'S ORGANIZ ATION 08/15/2024 [facility] DATE CREATED AUTHOR AUTHOR'S ORGANIZ ATION 08/20/2024 [facility] DATE CREATED AUTHOR AUTHOR'S ORGANIZ ATION 08/26/2024 [facility] DATE CREATED AUTHOR AUTHOR'S ORGANIZ ATION 08/30/2024 [facility] DATE CREATED AUTHOR AUTHOR'S ORGANIZ ATION 09/02/2024 [facility] DATE CREATED AUTHOR AUTHOR'S ORGANIZ ATION 09/10/2024 [facility] DATE CREATED AUTHOR AUTHOR'S ORGANIZ ATION 01/19/2025 [facility] DATE CREATED AUTHOR AUTHOR'S ORGANIZ ATION 02/05/2025 [facility] DATE CREATED AUTHOR AUTHOR'S ORGANIZ ATION 02/21/2025 [facility] DATE CREATED AUTHOR AUTHOR'S ORGANIZ ATION 02/22/2025 [facility] REASON FOR VISIT (unrecogniz ed section [...] HIGH MDM 60-74 MINUTES Hyun Nazario MD [address] [place] [address] [place] [address] Referral ID Status Reason Start Date Expiration Date Visits Requested Visits Authorized [id number] Pending Review PCP Requested Referral 11/18/2022 11/18/2023 1 1 Reason Comments Appointment Confirmation Reason Comments Establish Care [place] pvd HTN abn e kg Specialty Diagnoses / Procedures Referred By Contac t Referred To Contact Diagnoses Mixed hyperlipidemia Bilateral carotid artery disease, unspecified type (CMS/HCC) Procedures ECG 12 Lead Chaim Grayson DO [address] [place] [address] Referral ID Status Reason Start Date Expiration Date V isits Requested Visits Authorized [id number] Pending Review 06/04/2023 06/03/2024 1 1 Reason Comments Low Back Pain New Patient Evaluation New Patient Specialty Diagnoses / Procedures Referred By Contac t Referred To Contact Radiology Diagnoses Hypertension, unspecified type Bilateral carotid artery disease, unspecified type (CMS/HCC) Chest pressure Procedures Nuclear Stress Test CHG MYOCARDIAL SPECT MULTIPLE STUDIES CHG MYOCARDIAL SPECT SINGLE STUDY AT REST OR STRESS Chaim Grayson DO [address], [address] [address] Referral ID Status Reason Start Date Expiration Date V isits Requested Visits Authorized [id number] Authorized 06/04/2023 06/03/2024 5 5 Reason Comments Follow-up 1yr Specialty Diagnoses / Procedures Referred By Contac t Referred To Contact Cardiology Diagnoses Hypertension, unspecified type Mixed hyperlipidemia Bilateral carotid artery disease, unspecified type (CMS/HCC) Procedures Follow Up In Cardiology Chaim Grayson, [place] [address], [place] [phone] Chaim Grayson, [place] [address], [place] [phone] Referral ID Status Reason Start Date Expiration Date V isits Requested Visits Authorized [id number] Authorized 06/04/2023 06/03/2024 1 1 Reason Comments Prostate Cancer Specialty Diagnoses / Procedures Referred By Contac t Referred To Contact Radiation Oncology / RADIATION ONCOLOGY Diagnoses Malignant neoplasm of prostate jeovany treating prostate Procedures SIMULATION STAMFORD IMRT 28fractions Hyun Nazario MD [address] [address] Hyun Nazario MD [address] [place] [address] [address] [place] [phone] Referral ID Status Reason Start Date Expiration Date Visits Re quested Visits Authorized [id number] Closed 02/25/2022 06/20/2022 29 29 Reason Comments Med Refill Reason Onset Date Comments Med Refill 02/02/2024 Reason Onset Date Comments Med Refill 02/18/2024 Reason Comments Follow-up Reason Comments Annual Exam 1y Follow up for Cor onary Artery Disease Specialty Diagnoses / Procedures Referred By Contac t Referred To Contact Cardiology Diagnoses Bilateral carotid artery disease, unspecified type Procedures Follow Up In Cardiology Chaim Grayson, [address], [place] [phone] Phone: tel: fax: Chaim Grayson, DO [address] [facility] [address], [address] [address] Phone: tel: fax: Referral ID Status Reason Start Date Expiration Date V isits Requested Visits Authorized [id number] Authorized 08/18/2023 08/17/2024 1 1 Reason Onset [...] or prosecute any alcohol or drug abuse patient.[facility] HospitalIn the event this information is protected by the Federal Confidentiality of Alcohol and Drug Abuse Patient Records regulations: The Federal rules restrict any use of the information to criminally investigate or prosecute any alcohol or drug abuse patient.[facility] HospitalIn the event this information is protected by the Federal Confidentiality of Alcohol and Drug Abuse Patient Records regulations: The Federal rules restrict any use of the information to criminally investigate or prosecute any alcohol or drug abuse patient.[facility] HospitalIn the event this information is protected by the Federal Confidentiality of Alcohol and Drug Abuse Patient Records regulations: The Federal rules restrict any use of the information to criminally investigate or prosecute any alcohol or drug abuse patient.[facility] HospitalIn the event this information is protected by the Federal Confidentiality of Alcohol and Drug Abuse Patient Records regulations: The Federal rules restrict any use of the information to criminally investigate or prosecute any alcohol or drug abuse patient.[facility] HospitalIn the event this information is protected by the Federal Confidentiality of Alcohol and Drug Abuse Patient Records regulations: The Federal rules restrict any use of the information to criminally investigate or prosecute any alcohol or drug abuse patient.[facility] HospitalIn the event this information is protected by the Federal Confidentiality of Alcohol and Drug Abuse Patient Records regulations: The Federal rules restrict any use of the information to criminally investigate or prosecute any alcohol or drug abuse patient.[facility] HospitalIn the event this information is protected by the Federal Confidentiality of Alcohol and Drug Abuse Patient Records regulations: The Federal rules restrict any use of the information to criminally investigate or prosecute any alcohol or drug abuse patient.[facility] HospitalIn the event this information is protected by the Federal Confidentiality of Alcohol and Drug Abuse Patient Records regulations: The Federal rules restrict any use of the information to criminally investigate or prosecute any alcohol or drug abuse patient.[facility] HospitalIn the event this information is protected by the Federal Confidentiality of Alcohol and Drug Abuse Patient Records regulations: The Federal rules restrict any use of the information to criminally investigate or prosecute any alcohol or drug abuse patient.[facility] HospitalIn the event this information is protected by the Federal Confidentiality of Alcohol and Drug Abuse Patient Records regulations: The Federal rules restrict any use of the information to criminally investigate or prosecute any alcohol or drug abuse patient.[facility] HospitalIn the event this information is protected by the Federal Confidentiality of Alcohol and Drug Abuse Patient Records regulations: The Federal rules restrict any use of the information to criminally investigate or prosecute any alcohol or drug abuse patient.[facility] HospitalIn the event this information is protected by the Federal Confidentiality of Alcohol and Drug Abuse Patient Records regulations: The Federal rules restrict any use of the information to criminally investigate or prosecute any alcohol or drug abuse patient.[facility] HospitalIn the event this information is protected by the Federal Confidentiality of Alcohol and Drug Abuse Patient Records regulations: The Federal rules restrict any use of the information to criminally investigate or prosecute any alcohol or drug abuse patient.[facility] HospitalIn the event this information is protected by the Federal Confidentiality of Alcohol and Drug Abuse Patient Records regulations: The Federal rules restrict any use of the information to criminally investigate or prosecute any alcohol or drug abuse patient.[facility] HospitalIn the event this information is protected by the Federal Confidentiality of Alcohol and Drug Abuse Patient Records regulations: The Federal rules restrict any use of the information to criminally investigate or prosecute any alcohol or drug abuse patient.[facility] HospitalIn the event this information is protected by the Federal Confidentiality of Alcohol and Drug Abuse Patient Records regulations: The Federal rules restrict any use of the information to criminally investigate or prosecute any alcohol or drug abuse patient.[facility] HospitalIn the event this information is protected by the Federal Confidentiality of Alcohol and Drug Abuse Patient Records regulations: The Federal rules restrict any use of the information to criminally investigate or prosecute any alcohol or drug abuse patient.[facility] HospitalIn the event this information is protected by the Federal Confidentiality of Alcohol and Drug Abuse Patient Records regulations: The Federal rules restrict any use of the information to criminally investigate or prosecute any alcohol or drug abuse patient.[facility] HospitalIn the event this information is protected by the Federal Confidentiality of Alcohol and Drug Abuse Patient Records regulations: The Federal rules restrict any use of the information to criminally investigate or prosecute any alcohol or drug abuse patient.[facility] HospitalIn the event this information is protected by the Federal Confidentiality of Alcohol and Drug Abuse Patient Records regulations: The Federal rules restrict any use of the information to criminally investigate or prosecute any alcohol or drug abuse patient.[facility] HospitalIn the event this information is protected by the Federal Confidentiality of Alcohol and Drug Abuse Patient Records regulations: The Federal rules restrict any use of the information to criminally investigate or prosecute any alcohol or drug abuse patient.[facility] HospitalIn the event this information is protected by the Federal Confidentiality of Alcohol and Drug Abuse Patient Records regulations: The Federal rules restrict any use of the information to criminally investigate or prosecute any alcohol or drug abuse patient.[facility] HospitalIn the event this information is protected by the Federal Confidentiality of Alcohol and Drug Abuse Patient Records regulations: The Federal rules restrict any use of the information to criminally investigate or prosecute any alcohol or drug abuse patient.[facility] HospitalIn the event this information is protected by the Federal Confidentiality of Alcohol and Drug Abuse Patient Records regulations: The Federal rules restrict any use of the information to criminally investigate or prosecute any alcohol or drug abuse patient.[facility] HospitalIn the event this information is protected by the Federal Confidentiality of Alcohol and Drug Abuse Patient Records regulations: The Federal rules restrict any use of the information to criminally investigate or prosecute any alcohol or drug abuse patient.[facility] HospitalIn the event this information is protected by the Federal Confidentiality of Alcohol and Drug Abuse Patient Records regulations: The Federal rules restrict any use of the information to criminally investigate or prosecute any alcohol or drug abuse patient.[facility] HospitalIn the event this information is protected by the Federal Confidentiality of Alcohol and Drug Abuse Patient Records regulations: The Federal rules restrict any use of the information to criminally investigate or prosecute any alcohol or drug abuse patient.[facility] HospitalIn the event this information is protected by the Federal Confidentiality of Alcohol and Drug Abuse Patient Records regulations: The Federal rules restrict any use of the information to criminally investigate or prosecute any alcohol or drug abuse patient.[facility] HospitalIn the event this information is protected by the Federal Confidentiality of Alcohol and Drug Abuse Patient Records regulations: The Federal rules restrict any use of the information to criminally investigate or prosecute any alcohol or drug abuse patient.[facility] HospitalIn the event this information is protected by the Federal Confidentiality of Alcohol and Drug Abuse Patient Records regulations: The Federal rules restrict any use of the information to criminally investigate or prosecute any alcohol or drug abuse patient.[facility] HospitalIn the event this information is protected by the Federal Confidentiality of Alcohol and Drug Abuse Patient Records regulations: The Federal rules restrict any use of the information to criminally investigate or prosecute any alcohol or drug abuse patient.[facility] HospitalIn the event this information is protected by the Federal Confidentiality of Alcohol and Drug Abuse Patient Records regulations: The Federal rules restrict any use of the information to criminally investigate or prosecute any alcohol or drug abuse patient.[facility] HospitalIn the event this information is protected by the Federal Confidentiality of Alcohol and Drug Abuse Patient Records regulations: The Federal rules restrict any use of the information to criminally investigate or prosecute any alcohol or drug abuse patient.[facility] HospitalIn the event this information is protected by the Federal Confidentiality of Alcohol and Drug Abuse Patient Records regulations: The Federal rules restrict any use of the information to criminally investigate or prosecute any alcohol or drug abuse patient.[facility] HospitalIn the event this information is protected by the Federal Confidentiality of Alcohol and Drug Abuse Patient Records regulations: The Federal rules restrict any use of the information to criminally investigate or prosecute any alcohol or drug abuse patient.[facility] Care Teams (unrecognized sec tion and [...] Primary Care Provider, Other Provid er Active Loco Ferrera NP-C Attending Provider Active Medical Staff Services Manager Relationship Specialty Start Date End Date Shaikh Storm MD [address] [place] [address] PCP - General Primary Care 12/06/21 Barbara Johnston MD [address] [place] [address] Referring Urology 12/06/21 Medical Staff Services Manager Relationship Specialty Start Date End Date Shaikh Storm MD [address] [place] [address] PCP - General Primary Care 12/06/21 Barbara Johnston MD [address] [place] [address] Referring Urology 12/06/21 Medical Staff Services Manager Relationship Specialty Start Date End Date Shaikh Storm MD [address] [place] [address] PCP - General Primary Care 12/06/21 Barbara Johnston MD [address] [place] [address] Referring Urology 12/06/21 Medical Staff Services Manager Relationship Specialty Start Date End Date Shaikh Storm MD [address] [place] [address] PCP - General Primary Care 12/06/21 Barbara Johnston MD [address] [place] [address] Referring Urology 12/06/21 Medical Staff Services Manager Relationship Specialty Start Date End Date Shaikh Storm MD [address] [place] [address] PCP - General Primary Care 12/06/21 Barbara Johnston MD [address] [place] [address] Referring Urology 12/06/21 Constance Durand LSW Public Health Professor 03/04/22 Medical Staff Services Manager Relationship Specialty Start Date End Date Shaikh Storm MD [address] [place] [address] PCP - General Primary Care 12/06/21 Barbara Johnston MD [address] [place] [address] Referring Urology 12/06/21 Constance Durand LSW Public Health Professor 03/04/22 Medical Staff Services Manager Relationship Specialty Start Date End Date Shaikh Storm MD [address] [place] [address] PCP - General Primary Care 12/06/21 Barbara Johnston MD [address] [place] [address] Referring Urology 12/06/21 Constance Durand LSW Public Health Professor 03/04/22 Medical Staff Services Manager Relationship Specialty Start Date End Date Shaikh Storm MD [address] [place] [address] PCP - General Primary Care 12/06/21 Barbara Johnston MD [address] [place] [address] Referring Urology 12/06/21 Constance Durand LSW Public Health Professor 03/04/22 Medical Staff Services Manager Relationship Specialty Start Date End Date Shaikh Storm MD [address] [place] [address] PCP - General Primary Care 12/06/21 Barbara Johnston MD [address] [place] [address] Referring Urology 12/06/21 Constance Durand LSW Public Health Professor 03/04/22 Medical Staff Services Manager Relationship Specialty Start Date End Date Shaikh Storm MD [address] [place] [address] PCP - General Primary Care 12/06/21 Barbara Johnston MD [address] [place] [address] Referring Urology 12/06/21 Constance Durand HAND II [employer] Public Health Professor 03/04/22 Medical Staff Services Manager Relationship Specialty Start Date End Date Shaikh Storm MD [address] [place] [address] PCP - General Primary Care 12/06/21 Barbara Johnston MD [address] [place] [address] Referring Urology 12/06/21 Constance Durand LSW Public Health Professor 03/04/22 Medical Staff Services Manager Relationship Specialty Start Date End Date Shaikh Storm MD [address] [place] [address] PCP - General Primary Care 12/06/21 Barbara Johnston MD [address] [place] [address] Referring Urology 12/06/21 Constance Durand LSW Public Health Professor 03/04/22 Medical Staff Services Manager Relationship Specialty Start Date End Date Shaikh Storm MD [address] [place] [address] PCP - General Primary Care 12/06/21 Barbara Johnston MD [address] [place] [address] Referring Urology 12/06/21 Constance Durand LSW Public Health Professor 03/04/22 Medical Staff Services Manager Relationship Specialty Start Date End Date Shaikh Storm MD [address] [place] [address] PCP - General Primary Care 12/06/21 Barbara Johnston MD [address] [place] [address] Referring Urology 12/06/21 Constance Durand LSW Public Health Professor 03/04/22 Medical Staff Services Manager Relationship Specialty Start Date End Date Shaikh Storm MD [address] [place] [address] PCP - General Primary Care 12/06/21 Barbara Johnston MD [address] [place] [address] Referring Urology 12/06/21 Constance Durand LSW Public Health Professor 03/04/22 Team Status: Inactive Member Role Status Dates Shaikh Dotty MD Primary Care Provider Active Zeinab Justice MD Attending Provider Active Medical Staff Services Manager Relationship Specialty Start Date End Date Shaikh Storm MD [address] [place] [address] PCP - General Primary Care 12/06/21 Barbara Johnston MD [address] [place], [place] [address] Referring Urology 12/06/21 Constance Durand LSW Public Health Professor 03/04/22 Team Status: Inactive Member Role Status Shaikh Dotty MD Primary Care Provider Active Lyla Nazario MD Attending Provider Active Medical Staff Services Manager Relationship Specialty Start Date End Date Shaikh Storm MD [address] [place] [address] PCP - General Primary Care 12/06/21 Barbraa Johnston MD [address] [place] [address] Referring Urology 12/06/21 Constance Durand LSW Public Health Professor 03/04/22 Medical Staff Services Manager Relationship Specialty Start Date End Date Shaikh Storm MD [address] [place] [address] PCP - General Primary Care 12/06/21 Barbara Johnston MD [address] [place] [address] Referring Urology 12/06/21 Constance Durand LSW Public Health Professor 03/04/22 Medical Staff Services Manager Relationship Specialty Start Date End Date Shaikh Storm MD [address] [place] [address] PCP - General Primary Care 12/06/21 Barbara Johnston MD [address] [place] [address] Referring Urology 12/06/21 Constance Durand LSW Public Health Professor 03/04/22 Medical Staff Services Manager Relationship Specialty Start Date End Date Shaikh Storm MD [address] [place] [address] PCP - General Primary Care 12/06/21 Barbara Johnston MD [address] [place] [address] Referring Urology 12/06/21 Constance Durand, [facility] Public Health Professor 03/04/22 Medical Staff Services Manager Relationship Specialty Start Date End Date Shaikh Storm MD [address] [place] [address] PCP - General Primary Care 12/06/21 Barbara Johnston MD [address] [place] [address] Referring Urology 12/06/21 Constance Durand, [facility] Public Health Professor 03/04/22 Medical Staff Services Manager Relationship Specialty Start Date End Date Shaikh Storm MD [address] [place] [address] PCP - General Primary Care 12/06/21 Barbara Johnston MD [address] [place] [address] Referring Urology 12/06/21 [facility] Professor 03/04/22 Medical Staff Services Manager Relationship Specialty Start Date End Date Shaikh Storm MD [address] [place] [address] PCP - General Primary Care 12/06/21 Barbara Johnston MD [address] [place] [address] Referring Urology 12/06/21 Constance Durand, [employer] Public Health Professor 03/04/22 Medical Staff Services Manager Relationship Specialty Start Date End Date Shaikh Storm MD [address] [place] [address] PCP - General Primary Care 12/06/21 Barbara Johnston MD [address] [place] [address] Referring Urology 12/06/21 Constance Durand LSW Public Health Professor 03/04/22 Medical Staff Services Manager Relationship Specialty Start Date End Date Shaikh Storm MD [address] [place] [address] PCP - General Primary Care 12/06/21 Barbara Johnston MD [address] [place] [address] Referring Urology 12/06/21 Constance Durand, [employer] Public Health Professor 03/04/22 Team Status: Inactive Member Role Status Dates Shaikh Dotty MD Primary Care Provider Active Temporary Anesthesiologist Attending Provider Active Medical Staff Services Manager Relationship Specialty Start Date End Date Shaikh Storm MD [address] [place] [address] PCP - General Primary Care 12/06/21 Barbara Johnston MD [address] [place] [address] Referring Urology 12/06/21 Constance Durand, [employer] Public Health Professor 03/04/22 Team Status: Inactive Member Role Status Dates Shaikh Dotty MD Primary Care Provider Active Jose Martin Mchugh MD Attending Provider Active Team Status: Inactive Member Role Status Dates Shaikh Dotty MD Primary Care Provider Active Theo Thakkar MD Attending Provider Active Medical Staff Services Manager Relationship Specialty Start Date End Date Shaikh Storm MD [address] [place] [address] PCP - General Primary Care 12/06/21 Barbara Johnston MD [address] [place] [address] Referring Urology 12/06/21 Constance Durand LSW Public Health Professor 03/04/22 Medical Staff Services Manager Relationship Specialty Start Date End Date Shaikh Storm MD [address] [place] [address] PCP - General Primary Care 12/06/21 Barbara Johnston MD [address] [place] [address] Referring Urology 12/06/21 Constance Durand LSW Public Health Professor 03/04/22 Team Status: Inactive Member Role Status Dates Shaikh Dotty MD Primary Care Provider, Attending Pr ovider Active Medical Staff Services Manager Relationship Specialty Start Date End Date Shaikh Storm MD [address] [place] [address] PCP - General Internal Medicine 06/04/23 Medical Staff Services Manager Relationship Specialty Start Date End Date Shaikh Storm MD [address] [place] [address] PCP - General Primary Care 12/06/21 Barbara Johnston MD [address] [place] [address] Referring Urology 12/06/21 Constance Durand LSW Public Health Professor 03/04/22 Medical Staff Services Manager Relationship Specialty Start Date End Date Shaikh Storm MD [address] [place] [address] PCP - General Internal Medicine 06/04/23 Medical Staff Services Manager Relationship Specialty Start Date End Date Shaikh Storm MD [address] [place] [address] PCP - General Internal Medicine 06/04/23 Medical Staff Services Manager Relationship Specialty Start Date End Date Shaikh Storm MD PCP - General Internal Medicine 06/04/23 Team Status: Inactive Member Role Status Dates Shaikh Dotty MD Primary Care Provider Active Start: October 15, 2023 End: October 15, 2023 Bonnie Tan NP-C Attending Provider Active Start: October 15, 2023 End: October 15, 2023 Medical Staff Services Manager Relationship Specialty Start Date End Date Shaikh Storm MD [address] [place] [address] PCP - General Primary Care 12/06/21 Barbara Johnston MD [address] [place] [address] Referring Urology 12/06/21 Constance Druand LSW Public Health Professor 03/04/22 Medical Staff Services Manager Relationship Specialty Start Date End Date Shaikh Storm MD [address] [place] [address] PCP - General Primary Care 12/06/21 Barbara Johnston MD [address] [place] [address] Referring Urology 12/06/21 Constance Durand LSW Public Health Professor 03/04/22 Team Status: Active Member Role Status [...] February 29, 2024 End: February 29, 2024 Medical Staff Services Manager Relationship Specialty Start Date End Date Brian Avalos MD [address] [place] [address] PCP - General Family Medicine 01/12/24 Nasir Ward NP [address] [place] [address] Nurse Practitioner Family Medicine 01/12/24 Medical Staff Services Manager Relationship Specialty Start Date End Date Brian Avalos MD [address] [place] [address] PCP - General Family Medicine 01/12/24 Nasir Ward NP [address] [place] [address] Nurse Practitioner Family Medicine 01/12/24 Medical Staff Services Manager Relationship Specialty Start Date End Date Brian Avalos MD [address] [place] [address] PCP - General Family Medicine 01/12/24 Nasir Ward NP [address] [place] [address] Nurse Practitioner Family Medicine 01/12/24 Medical Staff Services Manager Relationship Specialty Start Date End Date Brian Avalos MD [address] [place] [address] PCP - General Family Medicine 01/12/24 Nasir Ward NP [address] [place] [address] Nurse Practitioner Family Medicine 01/12/24 Medical Staff Services Manager Relationship Specialty Start Date End Date Brian Avalos MD [address] [place] [address] PCP - General Family Medicine 01/12/24 Nasir Ward NP [address] [place] [address] Nurse Practitioner Family Medicine 01/12/24 Medical Staff Services Manager Relationship Specialty Start Date End Date Brian Avalos MD [address] [place] [address] PCP - General Family Medicine 01/12/24 Nasir Ward NP [address] [place] [address] Nurse Practitioner Family Medicine 01/12/24 Medical Staff Services Manager Relationship Specialty Start Date End Date Brian Avalos MD [address] [place] [address] PCP - General Family Medicine 01/12/24 Nasir Ward NP [address] [place] [address] Nurse Practitioner Family Medicine 01/12/24 Team Status: Inactive Member Role Status Dates [...] August 15, 2024 End: August 15, 2024 Medical Staff Services Manager Relationship Specialty Start Date End Date Shaikh Storm MD PCP - General Internal Medicine 06/04/23 Medical Staff Services Manager Relationship Specialty Start Date End Date Brian Avalos MD [address] [place] [address] PCP - General Family Medicine 01/12/24 Nasir Ward NP [address] [place] [address] Nurse Practitioner Family Medicine 01/12/24 Medical Staff Services Manager Relationship Specialty Start Date End Date Brian Avalos MD [address] [place] [address] PCP - General Family Medicine 01/12/24 Nasir Ward NP [address] [place] [address] Nurse Practitioner Family Medicine 01/12/24 Medical Staff Services Manager Relationship Specialty Start Date End Date Shaikh Storm MD [address] [place] [address] PCP - General Primary Care 12/06/21 Barbara Johnston MD [address] [place] [address] Referring Urology 12/06/21 Constance Durand LSW Public Health Professor 03/04/22 Medical Staff Services Manager Relationship Specialty Start Date End Date Brian Avalos MD PCP - General Family Medicine 01/12/24 Nasir Ward NP Nurse Practitioner Family Medicine 01/12/24 Goals (unrecognized section and content) Goals may [...] BE BASED ON THE PRIMARY CLINICAL RECORDS. [facility]. provides no warranty or guarantee of the accuracy or completeness of information in this document.
== END 2025-03-02 13:18 | disposition home or self-care (01) ==
LOC: LAB 13:17
PROVIDERS: PCP Nurse Practitioner; Visit Provider Urology
DX: R31.0 Gross hematuria (principal); Z85.46 Personal history of malignant neoplasm of prostate; R94.8 Abnormal results of function studies of other organs and systems
CPT/HCPCS: 36415; 74178; 82565; Q9966

== ENCOUNTER 2025-03-13 13:19 | Outpatient (OUT) | payer MEDICARE, SELFPAY ==
--- OUTSIDE RECORDS SUMMARY | 2025-03-13 13:25 | XMS_ITS | CCD ---
Author Organization [facility] Care Team Providers Care Junior Estimator Name Role Phone Sterling Vizcaino Primary Care Physician [phone] Theo Thakkar Unavailable Dotty MA[facility] Primary Care Provider Barbara Johnston MD Unavailable YAHAIRA STORMIKH Primary Care Physician Dotty [facility] Primary Care Provider Barbara Johnston MD Unavailable [phone] Constance Beverly Unavailable Unavailable Dotty [facility] Primary Care Provider Barbara Johnston MD Unavailable [phone] Constance Beverly Unavailable Unavailable MD Dotty [facility] Primary Care Provider MD Zeinab Justice Attending Provider [phone] MD Lyla Nazario Attending Provider LAKSHMIPATHY ., NARENDRANATH Attending Kiera vailable LAKSHMIPATHY ., NARENDRANATH Admitting Kiera vailable HALKER .HUBERT Consulting Unavailable [facility] Primary Care Unavailable OLIVA ., DR HOSEA Davison Admitting Unavailable HOBBS .LOPEZ Consulting Unavailable OLIVA ., DR HOSEA Davison Attending Unavailable [facility] Primary Care Unavailable OLIVA ., DR HOSEA Davison Admitting Unavailable OLIVA ., DR HOSEA Davison Consulting Unavailable [facility] Primary Care Unavailable KRISTEN ., DR HOSEA Davison Attending Unavailable [facility] Consulting Unavailable HOBBS ., LOPEZ Consulting Unavailable OLIVA ., DR HOSEA Davison Attending Unavailable OLIVA ., DR HOSEA Davison Admitting Unavailable [facility] Primary Care Unavailable OLIVA ., DR OHSEA Davison Consulting Unavailable OLIVA ., DR HOSEA Davison Admitting Unavailable OLIVA ., DR HOSEA Davison Consulting Unavailable [facility] Primary Care Unavailable OLIVA ., DR HOSEA Davison Attending Unavailable FAWALD, [facility] Consulting Unavailable JONATHAN MARTIN Consulting Unavailable HOBBS ., LOPEZ Consulting Unavailable OLIVA ., DR HOSEA Davison Admitting Unavailable [facility] Primary Care Unavailable OLIVA ., DR HOSEA Davison Attending Unavailable HOBBS ., LOPEZ Consulting Unavailable OLIVA ., DR HOSEA Davison Attending Unavailable OLIVA ., DR HOSEA Davison Admitting Unavailable [facility] Primary Care Unavailable OLIVA ., DR HOSEA Davison Attending Unavailable OLIVA ., DR HOSEA Davison Admitting Unavailable [facility] Primary Care Unavailable OLIVA ., DR HOSEA Davison Consulting Unavailable HOBBS ., LOPEZ Consulting Unavailable OLIVA ., DR HOSEA Davison Attending Unavailable OLIVA ., DR HOSEA Davison Admitting Unavailable [facility] Primary Care Unavailable OLIVA ., DR HOSEA Davison Admitting Unavailable [facility] Primary Care Unavailable OLIVA ., DR HOSEA Davison Attending Unavailable OLIVA ., DR HOSEA Davison Admitting Unavailable OLIVA ., DR HOSEA Davison Consulting [facility] Primary Care Unavailable OLIVA ., DR HOSEA Davison Attending Unavailable [facility], [facility] Primary Care Unavailable JOHNSTON ., DR JIMENEZ Consulting Unavailable JOHNSTON ., DR JIMENEZ Attending Unavailable JOHNSTON ., DR JIMENEZ Admitting Unavailable VIVIAN, THEO Consulting Unavailable VIVIANTHEO Attending Unavailable VIVIAN, THEO Admitting Unavailable [facility] Primary Care Unavailable RUT KIRBY Attending Unavailable RUT KIRBY Admitting Unavailable [facility] Primary Care Unavailable MD Justice Storm Primary Care Provider MD Justice Storm Other Provider ABE Ferrera Attending Provider Anesthesiologist, Alex Attending Provider U prabhu Tan Bonnie Unavailable MD Lyla Nazario Attending Provider MD Jose Martin Mchugh Attending Provider MD Theo Thakkar Attending Provider Jose Martin Mchugh Unavailable MD Yahaira Stormikh Primary Care Provider Anesthesiologist, Temporary Attending Provider U MD Lyla Carvalho Attending Provider MD Jose Martin Mchugh Attending Provider MD Theo Thakkar Attending Provider MD Dotty [facility] Primary Care Provider MD Justice Storm Attending Provider Dotty [facility] Primary Care Provider JOSE NICHOLS [facility] Primary Care Unavailable KODI REYNOLDS Attending Unavailable Dotty [facility] Primary Care Provider CHAIM GRAYSON Referring [facility] Primary Care Unavailable CHAIM GRAYSON Referring [facility] Primary Care Unavailable CHAIM GRAYSON Referring Unavailable [facility] Primary Care Unavailable Nicolette MAK, Adalid Powers Attending Unavailable Yahaira Storm MDikh Primary Care Provider MD Yahaira Stormikh Primary Care Provider MD Justice Storm Attending Provider MD Barbara Johnston Referring Provider Yahaira Storm MDikh Primary Care Provider NO FAMILY, PHYSICIAN Primary Care Provider Unava MD Theo Dill Attending Provider MS. NASIR WARD Primary Care P hysician Barbara JOHNSTON Attending Unavailable [facility] Care Unavailabl e BRITNI, CLAIRE E Admitting Unavailable BRITNI, CLAIRE E Attending Unavailable BRITNI, CLAIRE E Admitting Unavailable BRITNI, CLAIRE E Attending Unavailable Galthao, Karime Stone Admitting Unavailable Galthao, Karime Stone Attending [facility] e Barbara JOHNSTON Attending Unavailable BRITNI, CLAIRE E Attending Unavailable Galthao, Karime Stone Attending Unavailable [facility] Unavailaudie Avalos MD, Brian Primary Care Provider Ed DEBEADER, [facility] Unavailable [phone] Brian Avalos MD Primary Care Provider Farooq Quezada PA-C Emergency Provider NASIR WARD Attending Unavailabl e SHAIKH STORM Attending Unavailable SHAIKH STORM Attending Unavailable ED, NASIR Attending Unavailabl e ED, NASIR Attending Unavailabl e AMBROSIO SCALES Primary Care Physician Brian Avalos MD Primary Care Provider Farooq Quezada PA-C Emergency Provider [phone] Theo Thakkar MD Attending Provider Cherie William Attending Unavailable OrCherie loving Admitting Unavailable BRITNI, CLAIRE E Attending Unavailable BRITNI, CLAIRE E Admitting Unavailable Barbara JOHNSTON Attending Unavailable Shaikh Storm MD Primary Care Provider [phone] BRITNICLAIRE SHRESTHA Attending Unavailable BRITNI, CLAIRE E Admitting Unavailable Ward DEBEADER, [facility] Unavailable Barbara Johnston MD Unavailable Genoveva NAZARIO Attending Unavailable SHAIKH STORM Primary Care Unavailable Genoveva NAZARIO Referring Unavailable [facility] Primary Care Unavailable Bailey MAK, Brian Primary Care Provider Ed DEBEADER, Nasir Unavailable Brian Avalos MD Primary Care Provider Vivian MAK, Theo Attending Provider Barbara JOHNSTON Attending Unavailable NASIR WARD [facility] UnavailCLAIRE Powers Attending Unavailable LUCINA WARDTANY [facility] UnavailCLAIRE Powers Attending Unavailable NICKOLAS BENÍTEZ Attending Unavailable RAY MADERA Referring Unavailable Farooq Quezada Attending Unavailable Farooq Quezada Admitting Unavailable Brian Avalos Primary Care Unavailable Brian Avalos Primary Care Unavailable Theo Thakkar Attending Unavailable Theo Thakkar Admitting Unavailable Barbara JOHNSTON Attending Unavailable Barbara JOHNSTON Attending Unavailable Barbara JOHNSTON Attending Unavailable Barbara JOHNSTON Referring Unavailable Barbara JOHNSTON Admitting Unavailable Barbara JOHNSTON Attending Unavailable JOSE HECTOR Attending Unavailable CHAIM GRAYSON Referring Unavailable ELAINEALBooker, [facility] Primary Care Unavailable Allergies Allergy Classification Reported Allergen(s) Allergy Type Date of Onset Reaction(s) Facility (20 sources) ezetimibe; Translations: [EZETIMIBE] Drug Allergy 3 GI intolerance, Nausea/vomiting [facility] (8 sources) HMG-CoA reductase inhibitor; Translations: [[id number]-[id number]-ID A REDUCTASE INHIBITORS] Drug Intolerance 3 Other [facility] Work Phone: (15 sources) HMG-CoA reductase inhibitor Drug Intolerance 3 Other [facility] Medications Current Medications Medication Drug Class(es) [...] tablet by leslie th every six hours [place] 5/325 Tab Oral, q6hr, Refill(s) 0 Start Date: 03/22/21 Status: Ordered Repeat number: 1 Start: 03-22-2021 [place] 5/325 Ta b Oral, q6hr, Refill(s) 0 Start Date: 03/22/21 Status: Ordered Start: 03-22-2021 [place] 5/325 Ta b Oral, q6hr, Refill(s) 0 Start Date: 03/22/21 Status: Ordered take 1 tablet by leslie th every six hours as needed [place] 5-325 MG 1 tablet as needed Orally every 6 hrs Active Comment on above: TAKE 1 TABLET BY LESLIE TH TWICE DAILY NEEDED FOR LUMBAR RADICULOPATHY TAKE 1 TABLET BY LESLIE TH THREE TIMES DAILY NEEDED MUST LAST 30 DAYS amLODIPine 10 mg oral tablet (20 sources) Dihydropyridine Calcium Channel Jimy Start: 10-22-202 1 take 1 mg by mouth once [...] day(s), # 5 tab(s), Refills(s) 0, Pharmacy: [id number], 178, cm, 04/21/23 8:36:00 EST, [...] Comment on above: Take 1 tablet by [facility] as directed for 12 days. Take 1 tablet by mouth one hour prior to procedure. doxycycline hyclate 100 mg oral capsule (7 sources) Tetracycline-class Drug Start: 04-07-2024 End: 04-14-2024 take 1 capsule by mouth twice daily doxycycline hyclate 100 mg Cap 100 mg = 1 cap(s), Oral, BID, X 7 day(s), # 14 cap(s), Refills(s) 0, Pharmacy: [facility], 178, cm, 09/18/23 10:55:00 EDT, Height/Length [...] therapy Start: 03-11-2024 take 1 capsule by [facility] every week Ergocalciferol (Vitamin D2) 1,250 mcg (50,000 unit) capsule Active 0 .ROUTE .COMPLEX March 11, 2024 10:14am TAKE 1 CAPSULE BY MOUTH ONCE A WEEK Start: 03-11-2024 take 1 capsule by [facility] every week Ergocalciferol (Vitamin D2) 1,250 mcg (50,000 unit) capsule Active 0 .ROUTE .COMPLEX March 11, 2024 9:14am TAKE 1 CAPSULE BY MOUTH ONCE A WEEK Start: 09-15-2023 End: 03-11-2024 Ergocalciferol (Vitamin D2) 1,250 mcg (50,000 unit) capsule Discontinued [id number] UNIT PO Once a week September 15, 2023 5:43pm March 11, 2024 10:15am Start: 09-15-2023 End: 09-15-2023 take 01213 [IU] by mouth every week Ergocalciferol (Vitamin D2) Active 54822 UNIT PO Once a week September 15, 2023 5:43pm Start: 03-10-2023 take 1 capsule by mo [facility] every week Ergocalciferol 1.25 MG (07721 UT) 1 capsule Orally Q week for 90 days Mar, Active take 1 capsule by mo uth every week ergocalciferol (Vitamin D-2) 1.25 MG (38486 UT) capsule Take 1 capsule (1,250 mcg) [...] Bedtime, # 60 tab(s), Refills(s) 3, Pharmacy: [facility], 178, cm, 02/11/23 14:50:00 EDT, Height/Length [...] Bedtime, # 30 tab(s), Refills(s) 2, Pharmacy: [facility], 178, cm, 12/03/22 15:00:00 EDT, Height/Length [...] hours., # 30 tab(s), Refills(s) 1, Pharmacy: [facility], 178, cm, 07/07/23 9:25:00 EST, Height/Length [...] 1 Start: 04-21-2023 take 1 capsule by [facility] every week Vitamin D2 50,000 [...] 06-04-19 24 03-25-2021 Episodic Acute cerebrovascular disease (20 sources) Cerebrovascular [...] sources) Chronic prostatitis; Translations: [Chronic prostatitis] Onset: 06-04-19 24 05-13-2021 Chronic Inflammatory conditions of male genital organs (13 sources) Prostatitis 03-25-2021 Episodic Nephritis; nephrosis; renal sclerosis (5 sources) 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; Translations: [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] Onset: 06-04-19 24 06-04-2023 Chronic Open wounds of head; neck; and [...] 24 08-18-2023 Episodic Peripheral and visceral atherosclerosis (20 sources) [...] 3 UNSP] Onset: 02-01-20 Unclassified (1 source) Foreign body sensation, unspecified; Translations: [Foreign body sensation, unspecified] Onset: 07-14-19 Urinary tract infections (20 sources) Urinary tract infectious disease; Translations: [Urinary tract infection, site not specified] Onset: 10-29-19 Episodic Past or Other Problems Problem Classification Problem Date Documented Da te Episodic/Chronic Cancer of prostate (20 sources) History [...] chest pain] Onset: 06-04-2023 06-04-2023 Episodic Other connective tissue disease (4 sources) Other muscle spasm; Translations: [OTHER MUSCLE SPASM] Onset: 03-13-2022 Episodic Other connective tissue disease (15 sources) Synovial cyst of lumbar spine; Translations: [Other bursal cyst, other site] Onset: 09-02-2023 09-28-2023 Episodic Other nutritional; endocrine; and metabolic disorders (2 sources) Body mass index (BMI) 28.0-28.9, adult; Translations: [Body mass index (BMI) 28.0-28.9, adult] Onset: 08-18-2023 Episodic Residual codes; unclassified (17 sources) Tobacco user; Translations: [Tobacco use] Onset: 06-29-2023 06-29-2023 Episodic Residual codes; unclassified (15 sources) Weight change finding; Translations: [Other general symptoms and signs] Onset: 09-28-2023 09-28-2023 Episodic Spondylosis; intervertebral disc disorders; other back problems (20 sources) Spinal stenosis, lumbar region without neurogenic claudication; Translations: [Intervertebral disc disorders with radiculopathy, lumbar region] Onset: 01-24-2022 Episodic Unclassified (1 source) LOW BACK PAIN, UNSPECIFIED; Translations: [LOW BACK PAIN, UNSPECIFIED] Onset: 12-12-2021 Unclassified (5 sources) Onset: 06-04-2023 Resolved: 08-30-2024 06-04-2023 Results Test Name Value Interpretation Reference Range Facility Main OR Intraoperative Recor don 03-07-2025 Main OR Intraoperative Record Main OR Intraoperative Record IntraOp Document Type FTURO Summary Primary Physician: Barbara JOHNSTON MD Finalized Date/Time: 03/07/25 14:17:54 Pt. Name: YESENIA BROUSSARD/Sex: 1945 Male Med Rec #: [id number] Physician: Barbara JOHNSTON MD Financial #: [id number] Pt. Type: O Room/Bed: / Admit/Disch: 03/07/25 13:01:32 - Institution: Case Times FTURO Entry 1 Patient Times In Room 03/07/25 14:07:00 Out Room 03/07/25 14:17:00 Procedure Times Start 03/07/25 14:10:00 Stop 03/07/25 14:15:00 Anesthesia Times Last Modified By: Ethan Bundy 03/07/25 14:17:48 Case Attendance FTURO Entry 1 Entry 2 Entry 3 Case Attendee Barbara JOHNSTON MD, Terry T Troike, Kendall R Role Performed Surgeon - Primary Dairy Equipment Repairer - Primary Scrub - Primary Time In 03/07/25 14:10:00 03/07/25 14:07:00 03/07/25 14:07:00 Time Out 03/07/25 14:15:00 03/07/25 14:17:00 03/07/25 14:17:00 Procedure CYSTOSCOPY LOCAL(.) CYSTOSCOPY LOCAL(.) CYSTOSCOPY LOCAL(.) Comments Last Modified By: Ethan Bundy Terry T Sweene, Terry T 03/07/25 14:17:49 03/07/25 14:17:49 03/07/25 14:17:49 Surgical Procedures FTURO Entry 1 Procedure Description Procedure CYSTOSCOPY LOCAL Modifiers . Surgeon Description CYSTOSCOPY Primary Procedure Yes Primary Surgeon Barbara JOHNSTON MD Start 03/07/25 14:10:00 Stop 03/07/25 14:15:00 Anesthesia Type Local Surgical Service Urology Wound Class 2 - Clean-Contaminated Last Modified By: Ethan Bundy 03/07/25 14:17:51 General Case Data FTURO Pre-Care Text: Classifies surgical wound, implements aseptic technique, initiates traffic control Entry 1 Case Information OR URO 1 FT Case Level None Wound Class 2 - Clean-Contaminated Specialty Urology Preop Diagnosis GROSS HEMATURIA, Postop Same As Preop Yes HISTORY OF PROSTATE CANCER Postop Diagnosis GROSS HEMATURIA, Outcomes Met? Yes HISTORY OF PROSTATE CANCER Last Modified By: Ethan Bundy 03/07/25 14:08:04 Post-Care Text: The patient is free from signs and symptoms of infection EU IntraOp - FTURO Pre-Care Text: Implements protective measures prior to operative or invasive procedure, confirms identity before the operative or invasive procedure, verifies operative procedure, surgical site, and laterality Entry 1 EU Perioperative Protocols Procedure(s) CYSTOSCOPY LOCAL(.) Patient Identity Birthday, ID Band Verified (select at Check, Patient least 2): Participation Consents / H and P H&P, Surgery/Procedure Operative Site N/A Verified Consent Marking Verified Surgical Site Yes Laterality Verified n/a Verified Procedure Verified Yes Correct Patient Yes Position Verified Availability Equipment, Medication Time Out Barbara JOHNSTON MD, Verified (If Participants Ethan Bundy, Applicable) Abdifatah Fierro Time Out Complete 03/07/25 14:10:00 Allergies Reviewed? Yes Allergies Reviewed Self/Patient With Body Position Supine Prep Area PENIS AND SCROTUM Prep Agents Betadine Scrub Skin. Condition Intact, Brule, Warm, & Dry Additional None Specimens Collected Vitals - EU Blood Pressure 154/78 Pulse 83 bpm Respirations 18 br/min SPO2 96 % EBL 0 I&O - EU Total Intake 0 mL Total Output 0 mL Outcomes Met? Yes Last Modified By: Ethan Bundy 03/07/25 14:11:13 Post-Care Text: The patient is free from signs and symptoms of injury caused by extraneous objects Sign Out FTURO Entry 1 Before Patient Leaves OR Nurse verbally Yes Nurse verbally n/a confirms with the confirms with the team the name of team that the procedure(s) instrument, sponge, recorded and needle counts are correct (or N/A) Nurse verbally n/a Nurse verbally Yes confirms with the confirms with the team how the team whether there specimen is labeled are any equipment (including patient problems to be name), if applicable addressed Sign Out Complete 03/07/25 14:15:00 Last Modified By: Ethan Bundy 03/07/25 14:15:10 Case Comments Finalized By: Ethan Bundy Document Signatures Signed By: Ethan Bundy 03/07/25 14:17 Normal [facility] Main OR Preoperative Recordo n 03-07-2025 Main OR Preoperative Record Main OR Preoperative Record Holding Area Document Type FTURO Summary Primary Physician: Barbara JOHNSTON MD Finalized Date/Time: 03/07/25 13:56:28 Pt. Name: YESENIA BROUSSARD/Sex: 1945 Male Med Rec #: [id number] Physician: Barbara JOHNSTON MD Financial #: [id number] Pt. Type: O Room/Bed: / Admit/Disch: 03/07/25 13:01:32 - Institution: Case Times Holding FTURO Pre-Care Text: Verifies consent for planned procedure, identifies individual values and wishes concerning care, includes family members in perioperative teaching Secures patient's records' belongings, and valuables, maintains patient's dignity and privacy, and maintains patient confidentiality Entry 1 In Holding 03/07/25 13:55:00 Outcomes Met? Yes Last Modified By: Zakiya Dumas 03/07/25 13:55:35 Post-Care Text: The patient participates in decisions affecting his or her perioperative plan of care The patient's right to privacy is maintained Surgery Checklist FTURO Entry 1 Patient Birthday, ID Band Procedure History and Physical, Identification: Check, Patient Verification: Surgical Consent, With Participation Patient NPO after Midnight: n/a Date/Time: 03/07/25 13:55:00 Personal Items: Glasses Personal Items clothes and shoes Comment: Limitations: n/a Complaints of Pain: No Pain Comment: none Skin Integrity Unable to Visualize Vitals - EU Blood Pressure 154/78 Pulse 83 bpm Respirations 18 br/min SPO2 96 % Additional None Specimens Comment n/a Specimens Collected Residual Amount - 0 RN Reviewed Yes Post Void Last Modified By: Zakiya Dumas 03/07/25 13:56:26 Finalized By: Zakiya Dumas Document Signatures Signed By: Zakiya Dumas 03/07/25 13:56 Normal [facility] Operative Reporton Operative Report Operative Report Patient: YESENIA BROUSSARD Age: 79 years Sex: Male : 1945 Associated Diagnoses: None Author: Barbara JOHNSTON MD Procedure Operative Information Details: Date/ Time: 03/07/2025 14:20:00. Pre-Op Dx: Gross Hematuria - R31.0, Hx of Prostate CA - Z85.46. Post-Op Dx: Same. Anesthesia Type: Local. Procedure: Local Cystoscopy. Complications: None. Risks/Benefits/Informed Consent: Surgical risks, benefits, details of the procedure have been explained to the patient, Full informed consent has been obtained. Intraoperative Information Prepped: Patient is brought back to the endoscopy suite, Patient is placed in supine position, Patient prepped in the usual fashion with Betadine solution, 2% Xylocaine Jelly is placed per Urethra, After waiting several minutes the Cystoscope is introduced. The Urethra is: Normal. The Prostatic Urethra is: Unobstructed. The Bladder is: Abnormal, Trabeculated (Severe (3), Open diverticuli diffusely. On the left lateral wall there is a 3 cm raised red area that appears ulcerated and is a site of bleeding. No classic bladder tumors are noted.). The ureteral orifices: Show efflux of clear urine. Devices Implanted: None. Removal: Cystoscope is removed, The patient tolerated it well. Postoperative Information Discharge: Patient is discharged home with antibiotic coverage, Follow up arranged. He will need cystoscopy and transurethral resection of bladder lesions under anesthesia.. Normal [facility] Comment on above: Result Comment: Elec tronically Signed By: PRESTON MAK, Barbara Coy.br\Date and Time Signed: 03/07/25 14:22 EDT Reminderson 02-24-2025 Reminders Reminders From: Bhavana Banks To: TRISTIN - Recalls [place]; Sent: 08/29/2024 16:30:35 EDT Show up: 09/29/2024 16:30:00 EDT Subject: Ct scan/ Cysto Reminder/Recall Patient needs Ct scan and Cysto in November 2024 (CHEN) Pt office visit scheduled 04/2025 [...] Pt had Ct scan done today at [facility] for his back. Not sure what was ordered. Report not available yet. Pt sched for 03/07/25 at [facility] for cysto Order faxed to [facility] for Ct urogram.LG Normal [facility] CT Lumbar spine WO contrasto n 02-21-[address] [address] [address] Scan Report Signed Patient: YESENIA BROUSSARD MR#: [id number] : 1945 Acct:[id number] Age/Sex: 79 / M ADM Date: 02/21/25 Loc: CT Attending Dr: Loco Ferrera NP Ordering Physician: Loco Ferrera NP Date of Service: 02/21/25 Procedure(s): CT lumbar spine wo con Accession Number(s): [id number] cc: Shaikh Joanna Storm [address] [address] Patient Name: YESENIA BROUSSARD MRN: [id number] date: 1945 Sex: M Assigned Patient Location: CT Current Patient Location: CT Accession/Order Number: [id number] Exam Date: 02/21/2025 10:02 Report Date: 02/21/2025 [...] Waite M.D. 02/21/2025 11:31 AM Dictation Location: [place] [address] Electronically authenticated by: [id number] Y Date: 02/21/2025 11:31 Dictated By: Lorelei Waite M.D. Signed By: 02/21/25 1134 DD/ 1131 (more content not included)... [facility] Radiology, Radiologi MD merced - 02/21/[address] [address] [address] Scan Report Signed Patient: YESENIA BROUSSARD MR#: [id number] : 1945 Acct:[id number] Age/Sex: 79 / M ADM Date: 02/21/25 Loc: CT Attending Dr: Loco Ferrera NP Ordering Physician: Loco Ferrera NP Date of Service: 02/21/25 Procedure(s): CT lumbar spine wo con Accession Number(s): [id number] cc: Shaikh Joanna Storm [place] [address] Patient Name: YESENIA BROUSSARD MRN: [facility]:[id number] date: 1945 Sex: M Assigned Patient Location: CT Current Patient Location: CT Accession/Order Number: [id number] Exam Date: 02/21/2025 10:02 Report Date: 02/21/2025 [...] Waite M.D. 02/21/2025 11:31 AM Dictation Location: [place] [address] Electronically authenticated by: [id number] Y Date: 02/21/2025 11:31 Dictated By: Lorelei Waite M.D. Signed By: 02/21/25 1134 DD/ 1131 TD/TT: Rn Procedures: [facility] Radiology Study observation (narrative) [facility] CT Lumbar spine WO contrastO rdered By: Radiologist Radiology on 02-21-2025 [facility] Work Phone: Erythrocyte distribution wid th Auto (RBC) [Ratio]Ordered By: Theo Thakkar on 02-13-2025 Erythrocyte distribution width (RBC) [Ratio] 13.6 % 11.0-15.0 [facility] Glomerular filtration rate ( GFR) estimation in non- AmericanOrdered By: Theo Thakkar on 02-13-2025 GFR/1.73 sq M.predicted among non-blacks MDRD (S/P/Bld) [Vol rate/Area] 34 mL/min/{1.73_m2} Low >=60 mL/min/1.7 3m 2 [facility] CBC WITH PLATELET NO DI FFERENTIALon 02-13-2025 Erythrocyte distribution width (RBC) [Ratio] 13.6 % 11.0 - 15.0 % [facility] Hematocrit (Bld) [Volume fraction] 39.3 % Low 42.0 - 54.0 % [facility] Hemoglobin (Bld) [Mass/Vol] 12.9 g/dL Low 14.0 - 18.0 g/dL [facility] Interpretation and review of laboratory results Abnormal [facility] MCH (RBC) [Entitic mass] 30.9 pg 25.9 - 34.0 pg [facility] MCHC (RBC) [Mass/Vol] 32.8 g/dL 29.9 - 35.2 g/dL [facility] MCV (RBC) [Entitic vol] 94 fL 80.0 - 94.0 fL [facility] Platelet mean volume (Bld) [Entitic vol] 10.3 fL 9.5 - 13.5 fL [facility] TBH PLT 271 [facility] TB RBC 4.18 Low [facility] TBH WBC 8 [facility] CLINISYNC [facility] Hematocrit Auto (Bld) [Volum e fraction]Ordered By: Theo Thakkar on 02-13-2025 Hematocrit (Bld) [Volume fraction] 39.3 % Low 42.0-54.0 [facility] Hemoglobin [Mass/volume] in BloodOrdered By: Theo Thakkar on 02-13-2025 Hemoglobin (Bld) [Mass/Vol] 12.9 g/dL Low 14.0-18.0 [facility] Iron binding capacity [Mass/ volume] in Serum or PlasmaOrdered By: Theo Thakkar on 02-13-2025 Iron binding capacity [Mass/Vol] 354.0 ug/dL 250.0-450. 0 [facility] Iron saturation [Mass Fracti on] in Serum or PlasmaOrdered By: Theo Thakkar on 02-13-2025 Iron saturation [Mass fraction] 22.6 % [facility] Laboratory - Chemistry and C hemistry - challengeOrdered By: Theo Thakkar on 02-13-2025 Bilirubin Ql (U) SMALL Abnormal NEGATIVE [facility] Glucose (U) [Mass/Vol] Negative NEGATIVE [facility] Ketones Ql (U) TRACE mg/dL Abnormal NEGATIVE [facility] pH (U) 5.5 [pH] 5.0-9.0 [facility] Specific gravity (U) [Rel density] 1.025 1.005-1.02 5 [facility] Urobilinogen Qn (U) 0.2 {Jing'U}/dL 0.2-1.0 [facility] Albumin [Mass/Vol] 3.8 g/dL 3.4-5.0 [facility] Calcium [Mass/Vol] 9.2 mg/dL 8.5-10.1 [facility] Chloride [Moles/Vol] 106 mmol/L 98-107 [facility] CO2 [Moles/Vol] 23.6 mmol/L 21.0-32.0 [facility] Creatinine [Mass/Vol] 1.93 mg/dL High 0.70-1.30 [facility] Ferritin [Mass/Vol] 45.0 ng/mL 26.0-388.0 [facility] GFR/1.73 sq M.predicted MDRD (S/P/Bld) [Vol rate/Area] 41 mL/min/{1.73_m2} Low >=60 mL/min/1.7 3m 2 [facility] Glucose [Mass/Vol] 105 mg/dL 74-106 [facility] Iron [Mass/Vol] 80.0 ug/dL 65.0-175.0 [facility] Magnesium [Mass/Vol] 2.0 mg/dL 1.8-2.4 [facility] Potassium [Moles/Vol] 5.2 mmol/L High 3.5-5.1 [facility] Sodium [Moles/Vol] 139 mmol/L 136-145 [facility] Urate [Mass/Vol] 6.6 mg/dL 3.5-7.2 [facility] Urea nitrogen [Mass/Vol] 28.0 mg/dL High 7.0-18.0 [facility] Urea nitrogen/Creatinine [Mass ratio] 14.5 mg/mg [facility] Laboratory - Specimen inform ationOrdered By: Theo Thakkar on 02-13-2025 Appearance (U) SL CLOUDY CLEAR [facility] Color (U) LT. YELLOW YELLOW [facility] Laboratory - UrinalysisOrder ed By: Theo Thakkar on 02-13-2025 Leukocyte esterase Test strip Ql (U) LARGE Abnormal NEGATIVE [facility] Mucus Ql (Urine sed) NONE SEEN NONE SEEN [facility] Nitrite Ql (U) Negative NEGATIVE [facility] Protein (U) [Mass/Vol] 147.8 mg/dL High <=11.9 [facility] Protein Ql (U) 100 mg/dL Abnormal NEG/TRACE [facility] Leukocytes [#/volume] correc diana for nucleated erythrocytes in Blood by Automated counOrdered By: Theo Thakkar on 02-13-2025 WBC corrected for nucl RBC Auto (Bld) [#/Vol] 8.0 10 3/uL 4.0-11.0 [facility] MCH Auto (RBC) [Entitic mass ]Ordered By: Theo Thakkar on 02-13-2025 MCH (RBC) [Entitic mass] 30.9 pg 25.9-34.0 [facility] MCHC Auto (RBC) [Mass/Vol]Or dered By: Teho Thakkar on 02-13-2025 MCHC (RBC) [Mass/Vol] 32.8 g/dL 29.9-35.2 [facility] MCV Auto (RBC) [Entitic vol] Ordered By: Theo Thakkar on 02-13-2025 MCV (RBC) [Entitic vol] 94.0 fL 80.0-94.0 [facility] No Panel InformationOrdered By: Theo Thakkar on 02-13-2025 Urine Bacteria SMALL #/HPF Abnormal NONE SEEN [facility] Urine Occult Blood TRACE-I NEGATIVE [facility] Urine Other Casts NONE SEEN #/LPF NONE SEEN [facility] Urine Other Crystals None Seen #/HPF None Seen [facility] Urine Random Creatinine 214.61 mg/dL 20.00-300. 00 [facility] Urine RBC 0-2 #/HPF 0-2 [facility] Urine Squamous Epithelial Cells RARE #/LPF NONE/RARE [facility] Urine WBC 50-75 #/HPF Abnormal NONE SEEN [facility] 25-Hydroxy Vitamin D Total 43.3 ng/mL [facility] Comment on above: <20 ng/mL Vit D defi cient20-<30 ng/mL Vit D ikitevrszwbt72-547 ng/mL Vit D sufficient>100 ng/mL Potential Toxicity Parathyroid Hormone (Intact) 81 pg/mL Abnormal [facility] Comment on above: Performed at: [facility] [facility] [employer] [place] [id number] Director: Rojelio Nelson PhD, Phone: [phone] Phosphorus Level 3.9 mg/dL 2.6-4.7 [facility] Platelet mean volume Auto (B ld) [Entitic vol]Ordered By: Theo Thakkar on 02-13-2025 Platelet mean volume (Bld) [Entitic vol] 10.3 fL 9.5-13.5 [facility] Platelets Auto (Bld) [#/Vol] Ordered By: Theo Thakkar on 02-13-2025 Platelets (Bld) [#/Vol] 271 10 3/uL 150-450 [facility] RBC Auto (Bld) [#/Vol]Ordere d By: Theo Thakkar on 02-13-2025 RBC (Bld) [#/Vol] 4.18 10 6/uL Low 4.70-6.10 [facility] Serum or plasma anion gap de terminationOrdered By: Theo Thakkar on 02-13-2025 Anion gap [Moles/Vol] 14.6 mmol/L [facility] Urine protein/creatinine rat ioOrdered By: Theo Thakkar on 02-13-2025 Protein/Creatinine (U) [Ratio] 0.69 [facility] CNOVon 01-18-2025 CNOV Office Visit (RADTSA ) -- YESENIA BROUSSARD ([id number]) 1945 M Date Time Provider Department 01/18/25 9:45 AM Genoveva NAZARIO During your visit today, we recorded the following information about you: Temperature Pulse Respiration Blood pressure 98.6 degrees 92/minute 16/minute 150/75 Weight Height 88.5 kg 1.778 m [place] 01/18/2025 9:49 AM Signed AUA=6 Genoveva Nazario MD 01/18/2025 9:49 AM Signed Radiation [...] ASSESSMENT/PLAN: Prostate adenocarcinoma, initial PSA 9.95, biopsy [place] score 3 + 4 = 7 (grade [...] Nazario MD cc: Shaikh Dotty [address] [place] [address] Allergies As of Date: 01/18/2025 (No Known Allergies) Date Reviewed: 01/18/2025 Reviewed by: Kelly Hector MA - Fully Assessed Reason for Visit: Prostate Cancer [590] Cmt: Follow up Primary Visit Diagnosis:Cancer of prostate w/med recur risk (T2b-c or [place] 7 or PSA 10-20) (HCC) [C61] Order(s):PROSTATE-SPECIFIC ANTIGEN DIAGNOSTIC [SQPSA] Order #: [id number] FUTURE Prescriptions as of 01/18/2025 - HYDROcodone-acetaminophen [...] Service: OFFICE/OUTPATIENT ESTABLISHED LOW MDM 20 MIN [35098] Additional E/M codes: VISIT CPLX INHERENT EANDM ASSOC WITH MED * (more content not included)... Normal [facility] PSA SERPL-MCNCon 025 [facility] PSA SERPL-MCNC 1.56 ng/mL [facility] 2.[facility] ng/mL [facility] Comment on above: Total PSA test metho dology used is the Electrochemiluminescence Immunoassay by [employer]. Total PSA values by differing methodologies cannot be interchanged. Specimen Type: BLOOD SPECIMEN Ordering Facility: [facility] Address: [address] [place] [address] Original Ordering Provider: [facility]con 01-12-2025 Prostate specific Ag [Mass/Vol] 1.56 ng/mL Normal <2.60 [facility] Comment on above: Order Comment: Speci men Type: BLOOD SPECIMEN Ordering Facility: [facility] Address: [address] [place] [address] Result Comment: Azael scott PSA test methodology used is the Electrochemiluminescence Immunoassay by [employer]. Total PSA values by differing methodologies cannot be interchanged. Performed By: #### 2 [id number] #### [facility] CLIA [id number] [address] [place], [place] [address] [address] [place] Urine Cytology ([facility])on 0 09-02-2024 Microscopic exam Cytology (U) [Interp] Diagnosis Info Invalid Interpretation Code [facility] Comment on above: Result Comment: A:Ur ine,Urine:Voided Interpretation - Adequate cellularity for evaluation. CPT 12267 MicroScopic Description - Adequacy - Gross Description Site ID:A color Yellow fixative Alcohol Specimen designated Urine received in alcohol preservative and labeled with the patient???s name, consists of 70ml clear yellow fluid. Electronically signed by : on: 09/02/2024 13:57:41 Performed By: #### 1 [id number] #### [facility] [address] [place] [address] Ambulatory Visit Summaryon 0 08-29-2024 Ambulatory Visit Summary Ambulatory Visit Summary YESENIA BROUSSARD :1945 Visit Date:08/29/2024 Ambulatory Visit Instructions Your Diagnosis Gross hematuria Your Care Team Attending Physician - CLAIRE JAMES PA-C Primary Care Physician - AMBROSIO SCALES CNP This Is Your Medications List acetaminophen-hydrocodone ([place] 5/325 Tab) amlodipine (amLODIPine 10 mg Tab) [...] MAK, Barbara Warner Where: [facility] [address] [place] [phone] You Need to Schedule the Following Appointments Follow Up with [facility] Evita When: Comments: For procedure as scheduled. Where: Medications What How Much When Instructions Unchanged acetaminophen-hydrocodone ([place] 5/ 325 Tab) By Mouth Every 6 [...] these instructions at home: Medicines ??? Take nnon-anb-uamgedw and prescription medicines only as told by [...] urine to (more content not included)... Normal [facility] Urine Cytology ([facility])on 0 08-29-2024 Method of Extraction Voided Normal [facility] Comment on above: Performed By: #### 1 [id number] #### [facility] [address] [place] [address] Number of Jars 1 Invalid Interpretation Code [facility] Comment on above: Performed By: #### 1 [id number] #### [facility] [address] [place] [address] Specimen Urine Normal [facility] Comment on above: Performed By: #### 1 [id number] #### [facility] [address] [place] [address] Type of Service Technical Only Normal [facility] Comment on above: Performed By: #### 1 [id number] #### [facility] [address] [place] [address] Urology Office/Clinic Noteon 08-29-2024 Urology Office/Clinic Note [...] E&M of Est. Patient Moderate 30-39 Min [address] Urine Cytology ([facility]) Urnls Dip Stick Auto w/o Microscopy POC 26041 Follow-up With When Contact Information [facility] Additional Instructions: For procedure as scheduled. [...] 1 tab(s) nitroglycerin 0.4 mg sublingual Tab [place] 5/325 Tab, Oral, q6hr pravastatin 40 mg [...] Blood U (more content not included)... Normal [facility] Comment on above: Result Comment: Elec tronically Signed By: CLAIRE JAMES PA-C\.br\Date and Time Signed: 08/29/24 14:09 EDT C Urineon 08-25-2024 Bacteria identified Cx Nom (U) Microbiology PROCEDURE: Urine Culture [R1] SOURCE: U CleanCatch BODY SITE: COLLECTED DATE/TIME: 08/22/2024 16:34 EDT RECEIVED DATE/TIME: 08/23/2024 17:54 EDT START DATE/TIME: 08/23/2024 17:54 EDT FREE TEXT SOURCE: DEVIN William APRN, Stewart MCMULLEN, DEVIN, Cherie X Cherie X FINAL REPORTS Final Report [] Verified Date/Time: 08/25/2024 07:02 EDT 100 cfu/ml Mixed skin contaminants Performing Locations R1: This test was performed at: [facility], [address] [place] [address], [phone] , [place], Normal [facility] Comment on above: Performed By: #### 2 [id number] #### [facility] [address] [place] [address] Ambulatory Visit Summaryon 0 08-22-2024 Ambulatory Visit Summary Ambulatory Visit Summary YESENIA BROUSSARD :1945 Visit Date:08/22/2024 Ambulatory Visit Instructions Your Care Team Attending Physician - Barbara JOHNSTON MD Primary Care Physician - AMBROSIO SCALES CNP This Is Your Medications List acetaminophen-hydrocodone ([place] 5/325 Tab) amlodipine (amLODIPine 10 mg Tab) [...] Barbara JOHNSTON MD Where: [facility] [address] [place] [address]- Medications What How Much When Instructions Unchanged acetaminophen-hydrocodone ([place] 5/ 325 Tab) By Mouth Every 6 [...] for choosing us for your care. Normal [facility] Follow-Upon 08-18-2024 Follow-Up [id number] Dianne Broussard ld 1945 M Date Provider Department Center 08/18/2024 [facility] SURG [place] Fl Family History Problem Relation Age of Onset Hypertension Mother Diabetes Father Family Status - Relation Status Age at Mother Father Level of Service:[address] [place] OFFICE/OUTPATIENT ESTABLISHED LOW MDM 20 MIN Reason for Visit and Comments: Follow-up [799651] Normal [facility] C Urineon 08-12-2024 Bacteria identified Cx Nom [...] Locations R1: This test was performed at: [facility], [address] [place] [address], [phone] , , [facility] Comment on above: Performed By: #### 2 [id number] #### [facility] [address] [place] [address] Albumin [Mass/volume] in Ser um or Plasma by Bromocresol green (BCG) dye binding methoOrdered By: Theo Thakkar on 08-10-2024 Albumin BCG dye [Mass/Vol] Albumin [Mass/volume] in Serum or Plasma by Bromocresol green (BCG) dye binding metho 3.5-5.7 [facility] Appearance of UrineOrdered B y: Theo Thakkar on 08-10-2024 Appearance (U) Urine appearance Clear [facility] Bacteria [Presence] in Urine by AutomatedOrdered By: Theo Thakkar on 08-10-2024 Bacteria Auto Ql (U) Bacteria [Presence] in Urine by Automated None Seen [facility] Bilirubin Test strip Ql (U)O rdered By: Theo Thakkar on 08-10-2024 Bilirubin Ql (U) Bilirubin.total [Pre sence] in Urine by Test strip Negative [facility] Calcium [Mass/volume] in Ser um or PlasmaOrdered By: Theo Thakkar on 08-10-2024 Calcium [Mass/Vol] Calcium [Mass/volume ] in Serum or Plasma 8.6-10.3 [facility] Carbon dioxide, total [Moles /volume] in Serum or PlasmaOrdered By: Theo Thakkar on 08-10-2024 CO2 [Moles/Vol] Carbon dioxide, tota l [Moles/volume] in Serum or Plasma 21.0-31.0 [facility] Chloride [Moles/volume] in S jaime or PlasmaOrdered By: Theo Thakkar on 08-10-2024 Chloride [Moles/Vol] Chloride [Moles/vol ume] in Serum or Plasma 98-107 [facility] Color Auto (U)Ordered By: Ab bola Thakkar on 08-10-2024 Color (U) Color of Urine by Auto Yellow [facility] Creatinine [Mass/volume] in Serum or PlasmaOrdered By: Theo Thakkar on 08-10-2024 Creatinine [Mass/Vol] Creatinine [Mass/v olume] in Serum or Plasma High 0.70-1.30 [facility] Creatinine [Mass/volume] in UrineOrdered By: Theo Thakkar on 08-10-2024 Creatinine (U) [Mass/Vol] Creatinine [Mass/volume] in Urine [facility] Comment on above: No reference range e stablished Dipstick and Microscopicon 0 08-10-2024 Appearance (U) Clear Normal Clear [facility] Comment on above: Order Comment: Name Collection Type:: Clean-Voided Midstream Performed By: #### A DDONUAPLUS, PROCRERAT, CUU #### [facility] [address] [place] [address] [place] Bacteria,Urine None Seen Normal None Seen [facility] Comment on above: Order Comment: Name Collection Type:: Clean-Voided Midstream Performed By: #### A DDONUAPLUS, PROCRERAT, CUU #### [place] [address] [place] Bilirubin,Urine Negative Normal Negative [facility] Comment on above: Order Comment: Name Collection Type:: Clean-Voided Midstream Performed By: #### A DDONUAPLUS, PROCRERAT, CUU #### [place] [address] [place] Color (U) Light-Yellow Normal Yellow [facility] Comment on above: Order Comment: Name Collection Type:: Clean-Voided Midstream Performed By: #### A DDONUAPLUS, PROCRERAT, CUU #### [address] Glucose Ql (U) Normal Normal Normal [facility] Comment on above: Order Comment: Name Collection Type:: Clean-Voided Midstream Performed By: #### A DDONUAPLUS, PROCRERAT, CUU #### [place] [address] [place] Hyaline Casts,Urine 0-8 Normal 0-8 [facility] Comment on above: Order Comment: Name Collection Type:: Clean-Voided Midstream Performed By: #### A DDONUAPLUS, PROCRERAT, CUU #### [place] [address] [place] Ketones Ql (U) Negative Normal Negative [facility] Comment on above: Order Comment: Name Collection Type:: Clean-Voided Midstream Performed By: #### A DDONUAPLUS, PROCRERAT, CUU #### [address] Leukocyte esterase Test strip Ql (U) 2+ High Negative [facility] Comment on above: Order Comment: Name Collection Type:: Clean-Voided Midstream Performed By: #### A DDONUAPLUS, PROCRERAT, CUU #### [place] [address] [place] Mucus,Urine Rare Normal [facility] Comment on above: Order Comment: Name Collection Type:: Clean-Voided Midstream Result Comment: PERF ORMED BY: [place] [address] PATHOLOGIST PLANNING CONSULTANT ROS GUNDERSON M.D. Performed By: #### A DDONUAPLUS, PROCRERAT, CUU #### [place] [address] [place] Nitrite,Urine Negative Normal Negative [facility] Comment on above: Order Comment: Name Collection Type:: Clean-Voided Midstream Performed By: #### A DDONUAPLUS, PROCRERAT, CUU #### [address] Occult Blood,Urine 1+ High Negative [facility] Comment on above: Order Comment: Name Collection Type:: Clean-Voided Midstream Performed By: #### A DDONUAPLUS, PROCRERAT, CUU #### [address] pH (U) 6.0 [pH] Normal 5.0-9.0 [facility] Comment on above: Order Comment: Name Collection Type:: Clean-Voided Midstream Performed By: #### A DDONUAPLUS, PROCRERAT, CUU #### [place] [address] [place] Protein (U) [Mass/Vol] 50 mg/dL High Negative [facility] Comment on above: Order Comment: Name Collection Type:: Clean-Voided Midstream Performed By: #### A DDONUAPLUS, PROCRERAT, CUU #### [address] RBC,Urine 5-9 High 0-4 [facility] Comment on above: Order Comment: Name Collection Type:: Clean-Voided Midstream Performed By: #### A DDONUAPLUS, PROCRERAT, CUU #### [address] Specificy [place],Urine 1.016 Normal 1.001-1.03 0 [facility] Comment on above: Order Comment: Name Collection Type:: Clean-Voided Midstream Performed By: #### A DDONUAPLUS, PROCRERAT, CUU #### [address] Urobilinogen,Urine Normal Normal Normal [facility] Comment on above: Order Comment: Name Collection Type:: Clean-Voided Midstream Performed By: #### A DDONUAPLUS, PROCRERAT, CUU #### [address] WBC CLUMP, Urine Occasional High None Seen [facility] Comment on above: Order Comment: Name Collection Type:: Clean-Voided Midstream Performed By: #### A DDONUAPLUS, PROCRERAT, CUU #### [address] WBC,Urine 20-49 High 0-4 [facility] Comment on above: Order Comment: Name Collection Type:: Clean-Voided Midstream Performed By: #### A DDONUAPLUS, PROCRERAT, CUU #### [address] Epithelial cells.squamous [# /area] in Urine sediment by Automated countOrdered By: Theo Thakkar on 08-10-2024 Epithelial cells.squamous Auto (Urine sed) [#/Area] Epithelial cells.squamous [#/area] in Urine sediment by Automated count [facility] Erythrocyte distribution wid th Auto (RBC) [Ratio]Ordered By: Theo Thakkar on 08-10-2024 Erythrocyte distribution width (RBC) [Ratio] Erythrocyte distribution width [Ratio] by Automated count High 12.0-14.8 [facility] Erythrocytes [#/area] in Uri ne sediment by Automated countOrdered By: Theo Thakkar on 08-10-2024 RBC Auto (Urine sed) [#/Area] Erythrocytes [#/area] in Urine sediment by Automated count High 0-4 [facility] Ferritinon 08-10-2024 Ferritin [Mass/Vol] 14.0 ng/mL Low 23.9-336.2 [facility] Comment on above: Performed By: #### M G, [id number], URIC, CBCNO, JAVIER, FE and TIBC, PTH, RENAL #### [facility] [address] Ferritin [Mass/volume] in Se rum or PlasmaOrdered By: Theo Thakkar on 08-10-2024 Ferritin [Mass/Vol] Ferritin [Mass/volum e] in Serum or Plasma Low 23.9-336.2 [facility] Glucose [Mass/volume] in Ser um or PlasmaOrdered By: Theo Thakkra on 08-10-2024 Glucose [Mass/Vol] Glucose [Mass/volume ] in Serum or Plasma High 70-100 [facility] Comment on above: ADA recommended [...] [Mass/volume] in Urine by Test strip Normal [facility] Hematocrit Auto (Bld) [Volum e fraction]Ordered By: Theo Thakkar on 08-10-2024 Hematocrit (Bld) [Volume fraction] Hematocrit [Volume Fraction] of Blood by Automated count 38.8-50.0 [facility] Hemoglobin Test strip Ql (U) Ordered By: Theo Thakkar on 08-10-2024 Hemoglobin Ql (U) Hemoglobin [Presence ] in Urine by Test strip High Negative [facility] Hemoglobin [Mass/volume] in BloodOrdered By: Theo Thakkar on 08-10-2024 Hemoglobin (Bld) [Mass/Vol] Hemoglobin [Mass/volume] in Blood 13.0-17.0 [facility] Hemogram CBC Without Diffon 08-10-2024 Erythrocyte distribution width (RBC) [Ratio] 15.8 % High 12.0-14.8 [facility] Comment on above: Performed By: #### M G, [id number], URIC, CBCNO, JAVIER, FE and TIBC, PTH, RENAL #### [address] Hematocrit (Bld) [Volume fraction] 39.2 % Normal 38.8-50.0 [facility] Comment on above: Performed By: #### M G, [id number], URIC, CBCNO, JAVIER, FE and TIBC, PTH, RENAL #### [address] Hemoglobin (Bld) [Mass/Vol] 13.0 g/dL Normal 13.0-17.0 [facility] Comment on above: Performed By: #### M G, [id number], URIC, CBCNO, JAVIER, FE and TIBC, PTH, RENAL #### [address] MCH (RBC) [Entitic mass] 29.9 pg Normal 27.5-35.2 [facility] Comment on above: Performed By: #### M G, [id number], URIC, CBCNO, JAVIER, FE and TIBC, PTH, RENAL #### [address] MCV (RBC) [Entitic vol] 90.3 fL Normal 83.5-101 [facility] Comment on above: Performed By: #### M G, [id number], URIC, CBCNO, JAVIER, FE and TIBC, PTH, RENAL #### [address] Mean Corpuscular HGB Conc 33.1 g/dL Normal 32.5-35.6 [facility] Comment on above: Performed By: #### M G, [id number], URIC, CBCNO, JAVIER, FE and TIBC, PTH, RENAL #### [address] Platelet mean volume (Bld) [Entitic vol] 8.9 fL Normal 6.6-10.1 [facility] Comment on above: Result Comment: PERF ORMED BY: [place] [address] PATHOLOGIST PLANNING CONSULTANT ROS GUNDERSON M.D. Performed By: #### M G, [id number], URIC, CBCNO, JAVIER, FE and TIBC, PTH, RENAL #### [address] Platelets (Bld) [#/Vol] 293 10*3/uL Normal 150-450 [facility] Comment on above: Performed By: #### M G, [id number], URIC, CBCNO, JAVIER, FE and TIBC, PTH, RENAL #### [address] RBC (Bld) [#/Vol] 4.34 10*6/uL Normal 3.90-5.60 [facility] Comment on above: Performed By: #### M G, [id number], URIC, CBCNO, JAVIER, FE and TIBC, PTH, RENAL #### [address] WBC (Bld) [#/Vol] 6.9 10*3/uL Normal 4.1-10.5 [facility] Comment on above: Performed By: #### M G, [id number], URIC, CBCNO, JAVIER, FE and TIBC, PTH, RENAL #### [address] Hyaline casts [#/area] in Ur ine sediment by Automated countOrdered By: Theo Thakkar on 08-10-2024 Hyaline casts Auto (Urine sed) [#/Area] Hyaline casts [#/area] in Urine sediment by Automated count 0-8 [facility] Iron [Mass/volume] in Serum or PlasmaOrdered By: Theo Thakkar on 08-10-2024 Iron [Mass/Vol] Iron [Mass/volume] i n Serum or Plasma 50-212 [facility] Iron and TIBC Profileon 07-30 % Iron Saturation 19.9 % Low 20-50 [facility] Comment on above: Performed By: #### M G, [id number], URIC, CBCNO, JAVIER, FE and TIBC, PTH, RENAL #### [facility] [address] Iron [Mass/Vol] 87 ug/dL Normal 50-212 [facility] Comment on above: Performed By: #### M G, [id number], URIC, CBCNO, JAVIER, FE and TIBC, PTH, RENAL #### [facility] [address] Total Iron Binding Capacity 438 ug/dL Normal 255-450 [facility] Comment on above: Performed By: #### M G, [id number], URIC, CBCNO, JAVIER, FE and TIBC, PTH, RENAL #### [facility] [address] Transferrin [Mass/Vol] 313 mg/dL Normal 203-362 [facility] Comment on above: Performed By: #### M G, [id number], URIC, CBCNO, JAVIER, FE and TIBC, PTH, RENAL #### [facility] [address] Ketones Test strip Ql (U)Ord ered By: Theo Thakkar on 08-10-2024 Ketones Ql (U) Ketones [Presence] i n Urine by Test strip Negative [facility] Leukocyte clumps [Presence] in Urine by AutomatedOrdered By: Theo Thakkar on 08-10-2024 Leukocyte clumps Auto Ql (U) Leukocyte clumps [Presence] in Urine by Automated High None Seen [facility] Leukocyte esterase [Presence ] in Urine by Test stripOrdered By: Theo Thakkar on 08-10-2024 Leukocyte esterase Test strip Ql (U) Leukocyte esterase [Presence] in Urine by Test strip High Negative [facility] Leukocytes [#/area] in Urine sediment by Automated countOrdered By: Theo Thakkar on 08-10-2024 WBC Auto (Urine sed) [#/Area] Leukocytes [#/area] in Urine sediment by Automated count High 0-4 [facility] Leukocytes [#/volume] correc diana for nucleated erythrocytes in Blood by Automated counOrdered By: Theo Thakkar on 08-10-2024 WBC corrected for nucl RBC Auto (Bld) [#/Vol] Leukocytes [#/volume] corrected for nucleated erythrocytes in Blood by Automated coun 4.1-10.5 [facility] MCH Auto (RBC) [Entitic mass ]Ordered By: Theo Thakkar on 08-10-2024 MCH (RBC) [Entitic mass] MCH [Entitic mass] by Automated count 27.5-35.2 [facility] MCHC Auto (RBC) [Mass/Vol]Or dered By: Theo Thakkar on 08-10-2024 MCHC (RBC) [Mass/Vol] MCHC [Mass/volume] by Automated count 32.5-35.6 [facility] MCV Auto (RBC) [Entitic vol] Ordered By: Theo Thakkar on 08-10-2024 MCV (RBC) [Entitic vol] MCV [Entitic volume] by Automated count 83.5-101 [facility] Magnesiumon 08-10-2024 Magnesium [Mass/Vol] 2.1 mg/dL Normal 1.9-2.7 [facility] Comment on above: Performed By: #### M G, [id number], URIC, CBCNO, JAVIER, FE and TIBC, PTH, RENAL #### [address] Magnesium [Mass/volume] in S jaime or PlasmaOrdered By: Theo Thakkar on 08-10-2024 Magnesium [Mass/Vol] Magnesium [Mass/vol ume] in Serum or Plasma 1.9-2.7 [facility] Mucus [Presence] in Urine by AutomatedOrdered By: Theo Thakkar on 08-10-2024 Mucus Auto Ql (U) Mucus [Presence] in Urine by Automated [facility] Nitrite Test strip Ql (U)Ord ered By: Theo Thakkar on 08-10-2024 Nitrite Ql (U) Nitrite [Presence] i n Urine by Test strip Negative [facility] No Panel InformationOrdered By: Theo Thakkar on 08-10-2024 Estimated GFR (CKD-EPI) 39.659 mL/Min [facility] Pharmacy Creatinine Clearance (Chem N/A [facility] Parathyrin.intact [Mass/volu me] in Serum or PlasmaOrdered By: Theo Thakkar on 08-10-2024 Parathyrin.intact [Mass/Vol] Parathyrin.intact [Mass/volume] in Serum or Plasma High [facility] Parathyroid Hormone Intacton 08-10-2024 Parathyroid Hormone Intact 96.1 pg/mL High [facility] Comment on above: Result Comment: PERF ORMED BY: [place] [address] PATHOLOGIST PLANNING CONSULTANT ROS GUNDERSON M.D. Performed By: #### M G, [id number], URIC, CBCNO, JAVIER, FE and TIBC, PTH, RENAL #### [address] Phosphate [Mass/volume] in S jaime or PlasmaOrdered By: Theo Thakkar on 08-10-2024 Phosphate [Mass/Vol] Phosphate [Mass/vol ume] in Serum or Plasma 2.5-4.5 [facility] Platelet mean volume Auto (B ld) [Entitic vol]Ordered By: Theo Thakkar on 08-10-2024 Platelet mean volume (Bld) [Entitic vol] Platelet mean volume [Entitic volume] in Blood by Automated count 6.6-10.1 [facility] Platelets Auto (Bld) [#/Vol] Ordered By: Theo Thakkar on 08-10-2024 Platelets (Bld) [#/Vol] Platelets [#/volume] in Blood by Automated count 150-450 [facility] Potassium [Moles/volume] in Serum or PlasmaOrdered By: Theo Thakkar on 08-10-2024 Potassium [Moles/Vol] Potassium [Moles/v olume] in Serum or Plasma 3.5-5.1 [facility] Protein Creat Ratio Ur Rando mon 08-10-2024 Creatinine, Urine (Random) 114.00 mg/dL Normal [facility] Comment on above: Result Comment: No r eference range established Performed By: #### A DDONUAPLUS, PROCRERAT, CUU #### [facility] [address] Protein (U) [Mass/Vol] 81 mg/dL High 0-9 [facility] Comment on above: Performed By: #### A DDONUAPLUS, PROCRERAT, CUU #### [address] Urine Protein/Creatinine Ratio 711 mg/g{Cre} High 0-200 [facility] Comment on above: Result Comment: PERF ORMED BY: [place] [address] PATHOLOGIST PLANNING CONSULTANT ROS GUNDERSON M.D. Performed By: #### A DDONUAPLUS, PROCRERAT, CUU #### [address] Protein Test strip (U) [Mass /Vol]Ordered By: Theo Thakkar on 08-10-2024 Protein (U) [Mass/Vol] Protein [Mass/vol ume] in Urine by Test strip High Negative [facility] Protein [Mass/volume] in Uri neOrdered By: Theo Herrmanndir on 08-10-2024 Protein (U) [Mass/Vol] Protein [Mass/vol ume] in Urine High 0-9 [facility] RBC Auto (Bld) [#/Vol]Ordere d By: Theo Thakkar on 08-10-2024 RBC (Bld) [#/Vol] Erythrocytes [#/volu me] in Blood by Automated count 3.90-5.60 [facility] Renal Function Panelon 08-10 Albumin [Mass/Vol] 4.3 g/dL Normal 3.5-5.7 [facility] Comment on above: Performed By: #### M G, [id number], URIC, CBCNO, JAVIER, FE and TIBC, PTH, RENAL #### [facility] [address] [place] [address] Anion gap [Moles/Vol] 9.2 mmol/L Normal 6.0-15.0 [facility] Comment on above: Performed By: #### M G, [id number], URIC, CBCNO, JAVIER, FE and TIBC, PTH, RENAL #### [facility] [address] Calcium [Mass/Vol] 9.2 mg/dL Normal 8.6-10.3 [facility] Comment on above: Performed By: #### M G, [id number], URIC, CBCNO, JAVIER, FE and TIBC, PTH, RENAL #### [address] Chloride [Moles/Vol] 106 mmol/L Normal 98-107 [facility] Comment on above: Performed By: #### M G, [id number], URIC, CBCNO, JAVIER, FE and TIBC, PTH, RENAL #### [address] CO2 [Moles/Vol] 27.7 mmol/L Normal 21.0-31.0 [facility] Comment on above: Performed By: #### M G, [id number], URIC, CBCNO, JAVIER, FE and TIBC, PTH, RENAL #### [address] Creatinine [Mass/Vol] 1.73 mg/dL High 0.70-1.30 [facility] Comment on above: Performed By: #### M G, [id number], URIC, CBCNO, JAVIER, FE and TIBC, PTH, RENAL #### [address] Estimated GFR 39.659 mL/Min Normal [facility] Comment on above: Performed By: #### M G, [id number], URIC, CBCNO, JAVIER, FE and TIBC, PTH, RENAL #### [address] Glucose [Mass/Vol] 119 mg/dL High 70-100 [facility] Comment on above: Result Comment: [place] Glucose Reference Range is dependent on time and content of last meal. Glucose of more than 200 mg/dL in a nonstressed, ambulatory subject supports the diagnosis of Diabetes Mellitus. ADA recommended reference range Performed By: #### M G, [id number], URIC, CBCNO, JAVIER, FE and TIBC, PTH, RENAL #### [facility] [address] Phosphate [Mass/Vol] 3.4 mg/dL Normal 2.5-4.5 [facility] Comment on above: Performed By: #### M G, [id number], URIC, CBCNO, JAVIER, FE and TIBC, PTH, RENAL #### [facility] [address] Potassium [Moles/Vol] 4.9 mmol/L Normal 3.5-5.1 [facility] Comment on above: Performed By: #### M G, [id number], URIC, CBCNO, JAVIER, FE and TIBC, PTH, RENAL #### [facility] [address] Sodium [Moles/Vol] 138 mmol/L Normal 136-145 [facility] Comment on above: Performed By: #### M G, [id number], URIC, CBCNO, JAVIER, FE and TIBC, PTH, RENAL #### [facility] [address] Urea nitrogen [Mass/Vol] 24 mg/dL Normal 7-25 [facility] Comment on above: Performed By: #### M G, [id number], URIC, CBCNO, JAVIER, FE and TIBC, PTH, RENAL #### [address] Serum or plasma anion gap de terminationOrdered By: Theo Thakkar on 08-10-2024 Anion gap [Moles/Vol] Serum or plasma an ion gap determination 6.0-15.0 [facility] Serum or plasma iron binding capacity measurement (mass/volume)Ordered By: Theo Thakkar on 08-10-2024 Iron binding capacity [Mass/Vol] Iron binding capacity [Mass/volume] in Serum or Plasma 255-450 [facility] Serum or plasma iron saturat ion measurement (mass fraction)Ordered By: Theo Thakkar on 08-10-2024 Iron saturation [Mass fraction] Iron saturation [Mass Fraction] in Serum or Plasma Low 20-50 [facility] Sodium [Moles/volume] in Ser um or PlasmaOrdered By: Theo Thakkar on 08-10-2024 Sodium [Moles/Vol] Sodium [Moles/volume ] in Serum or Plasma 136-145 [facility] Specific gravity Test strip (U) [Rel density]Ordered By: Theo Thakkar on 08-10-2024 Specific gravity (U) [Rel density] Specific gravity of Urine by Test strip 1.001-1.03 0 [facility] Transferrin [Mass/volume] in Serum or PlasmaOrdered By: Theo Thakkar on 08-10-2024 Transferrin [Mass/Vol] Transferrin [Mass /volume] in Serum or Plasma 203-362 [facility] Urate [Mass/volume] in Serum or PlasmaOrdered By: Theo Thakkar on 08-10-2024 Urate [Mass/Vol] Urate [Mass/volume] in Serum or Plasma 4.4-7.6 [facility] Urea nitrogen [Mass/volume] in Serum or PlasmaOrdered By: Theo Thakkar on 08-10-2024 Urea nitrogen [Mass/Vol] Urea nitrogen [Mass/volume] in Serum or Plasma 7-25 [facility] Uric Acidon 08-10-2024 Urate [Mass/Vol] 6.2 mg/dL Normal 4.4-7.6 [facility] Comment on above: Performed By: #### M G, [id number], URIC, CBCNO, JAVIER, FE and TIBC, PTH, RENAL #### [facility] [address] Urine Cultureon 08-10-2024 Bacteria identified Cx Nom (U) No Growth 2 Days PERFORMED BY: [place] [address] PATHOLOGIST PLANNING CONSULTANT ROS GUNDERSON M.D. Normal [facility] Comment on above: Performed By: #### M G, [id number], URIC, CBCNO, JAVIER, FE and TIBC, PTH, RENAL #### [facility] [address] [place] [id number] [facility] Urine cultureOrdered By: Amanda Thakkar on 08-10-2024 Bacteria identified Cx Nom (U) Urine culture [facility] Urine protein/creatinine rat ioOrdered By: Theo Vivian on 08-10-2024 Protein/Creatinine (U) [Ratio] Urine protein/creatinine ratio High 0-200 [facility] Urobilinogen Test strip (U) [Mass/Vol]Ordered By: Theo Vivian on 08-10-2024 Urobilinogen (U) [Mass/Vol] Urobilinogen [Mass/volume] in Urine by Test strip Normal [facility] Vitamin D 25 Hydroxy Totalon 08-10-2024 Vitamin D 25 Hydroxy Total 51.2 ng/mL Normal 30-100 [facility] Comment on above: Result Comment: [place] MIN D STATUS 25(OH)VITAMIN D RANGE (ng/mL) Deficient <20 Insufficient 20 to <30 Sufficient 30 to 100 Reference: Wayne Patterson, John VILLEGAS, et al. Evaluation,treatment, and prevention of vitamin D deficiency; an Endocrine Society clinical practice guideline. JCEM. 2010; 96(7):1911-30. PERFORMED BY: [place] [address] PATHOLOGIST PLANNING CONSULTANT ROS GUNDERSON M.D. Performed By: #### M G, [id number], URIC, CBCNO, JAVIER, FE and TIBC, PTH, RENAL #### [facility] [address] [place] [id number] [facility] Vitamin D+Metabolites [Mass/ volume] in Serum or PlasmaOrdered By: Theo Vivian on 08-10-2024 Vitamin D+Metabolites [Mass/Vol] Vitamin D+Metabolites [Mass/volume] in Serum or Plasma 30-100 [facility] Comment on above: VITAMIN D STATUS 25( [place])VITAMIN D RANGE (ng/mL) Deficient <20 Insufficient 20 to <30Sufficient 30 to 100Reference: Wayne Patterson, John VILLEGAS, et al. Evaluation,treatment, and prevention of vitamin D deficiency; an Endocrine Society clinical practice guideline. JCEM. 2010; 96(7):1911-30. pH Test strip (U)Ordered By: Theo Thakkar on 08-10-2024 pH (U) pH of Urine by Test strip 5.0-9.0 [facility] Urology Office/Clinic Noteon 08-08-2024 Urology Office/Clinic Note [...] day(s), # 14 cap(s), Refills(s) 0, [id number], 178, cm, 08/08/24 12:38:00 EDT, Height/Length Dosing, 90.4, kg, 08/08/24 12:38:00 EDT, Weight Dosing 32676 Measure Post Void residual urine and/or bladder capacity by US- non-imaging Body Mass Index (BMI) documented 3008F Current tobacco smoker 1034F Depression Screening Negative 3352F E&M of Est. Patient Moderate 30-39 Min 41187 Influenza immunization status assessed 1030F Medication list [...] Urnls Dip Stick Auto w/o Microscopy POC 63428 Orders: tadalafil, 20 mg = 1 tab(s), Oral, As Directed, Do not exceed 20mg within 48 hours., # 30 tab(s), Refills(s) 1, Pharmacy: [id number], 178, cm, 07/07/23 9:25:00 EST, Height/Length Dosing, 92, kg, 07/07/23 9:25:00 EST, Weight Dosing Follow-up With When Contact Information [facility] Additional Instructions: Only if needed/new problems [...] Oral, q12hr nitroglycerin 0.4 mg sublingual Tab [place] 5/325 Tab, Oral, q6hr pravastatin 40 mg [...] 08/08/2024 F (more content not included)... Normal [facility] Comment on above: Result Comment: Elec tronically Signed By: CLAIRE JAMES PA-C\.da\Date and Time Signed: 08/08/24 13:51 EDT Ambulatory Visit Summaryon 1 06-18-2023 Ambulatory Visit Summary Ambulatory Visit Summary BROUSSARDYESENIA Timmy :1945 Visit Date:04/18/2024 Ambulatory Visit Instructions Your Diagnosis History of prostate cancer Recurrent UTI BPH with urinary obstruction Nocturia Erectile dysfunction Your Care Team Attending Physician - PRESTON MAK, Barbara Warner Primary Care Physician - ED, MS. NASIR MAHONEY This Is Your Medications List tadalafil (Cialis 20 mg Tab) Contact prescribing physician if questions or concerns acetaminophen-hydrocodone ([place] 5/325 Tab) amlodipine (amLODIPine 10 mg Tab) [...] Barbara JOHNSTON MD Where: [facility] [address] [place] [address] You Need to Schedule the Following Appointments Follow Up with Barbara JOHNSTON MD, URL When: Comments: 1 yr w/ PSA Where: [facility] [address], [place] [address]- [phone] Medications What How Much When Instructions Unchanged tadalafil (Cialis 20 mg Tab) 1 Tablets By Mouth As Directed Do not exceed 20mg within 48 hours. Unchanged acetaminophen-hydrocodone ([place] 5/ 325 Tab) By Mouth Every 6 [...] villegas (more content not included)... Normal [facility] Urology Office/Clinic Noteon 04-18-2024 Urology Office/Clinic [...] [facility] [address], [place] [address]- [phone] Additional Instructions: 1 yr w/ PSA Patient [...] infection) UTI (more content not included)... Normal [facility] Comment on above: Result Comment: Elec [...] Locations R1: This test was performed at: [facility], [address] [place] [address], [phone] , , [facility] Comment on above: Performed By: #### 2 [id number] #### [facility] [address] [place] [id number] Albumin [Mass/volume] in Ser um or Plasma by Bromocresol green (BCG) dye binding methoOrdered By: Theo Thakkar on 02-25-2024 Albumin BCG dye [Mass/Vol] 4.2 g/dL 3.5-5.7 [facility] Bacteria [Presence] in Urine by AutomatedOrdered By: Theo Thakkar on 02-25-2024 Bacteria Auto Ql (U) None seen [HPF] None Seen [facility] Bilirubin Test strip Ql (U)O rdered By: Theo Thakkar on 02-25-2024 Bilirubin Ql (U) Negative Negative [facility] Calcium [Mass/volume] in Ser um or PlasmaOrdered By: Theo Thakkar on 02-25-2024 Calcium [Mass/Vol] 9.4 mg/dL 8.6-10.3 [facility] Carbon dioxide, total [Moles /volume] in Serum or PlasmaOrdered By: Theo Thakkar on 02-25-2024 CO2 [Moles/Vol] 24.9 mmol/L 21.0-31.0 [facility] Chloride [Moles/volume] in S jaime or PlasmaOrdered By: Theo Thakkar on 02-25-2024 Chloride [Moles/Vol] 105 mmol/L 98-107 [facility] Color Auto (U)Ordered By: Ab bola Thakkar on 02-25-2024 Color (U) Yellow Yellow [facility] Creatinine [Mass/volume] in Serum or PlasmaOrdered By: Theo Thakkar on 02-25-2024 Creatinine [Mass/Vol] 1.67 mg/dL High 0.70-1.30 [facility] Creatinine [Mass/volume] in UrineOrdered By: Theo Thakkar on 02-25-2024 Creatinine (U) [Mass/Vol] 173.00 mg/dL [facility] Comment on above: No reference range e stablished Epithelial cells.squamous [# /area] in Urine sediment by Automated countOrdered By: Theo Thakkar on 02-25-2024 Epithelial cells.squamous Auto (Urine sed) [#/Area] 1-2 [HPF] 0-2 [facility] Erythrocyte distribution wid th Auto (RBC) [Ratio]Ordered By: Theo Thakkar on 02-25-2024 Erythrocyte distribution width (RBC) [Ratio] 15.0 % High 12.0-14.8 [facility] Erythrocytes [#/area] in Uri ne sediment by Automated countOrdered By: Theo Thakkar on 02-25-2024 RBC Auto (Urine sed) [#/Area] 10-19 [HPF] High 0-4 [facility] Glucose [Mass/volume] in Ser um or PlasmaOrdered By: Theo Thakkar on 02-25-2024 Glucose [Mass/Vol] 95 mg/dL 70-100 [facility] Comment on above: ADA recommended refe rence rangeRandom Glucose Reference Range is dependent on time and content of last meal. Glucose of more than 200 mg/dL in a nonstressed, ambulatory subject supports the diagnosis of Diabetes Mellitus. Glucose [Mass/volume] in Uri ne by Test stripOrdered By: Theo Thakkar on 02-25-2024 Glucose Test strip (U) [Mass/Vol] Normal mg/dL Normal [facility] Granular casts [#/area] in U rine by Computer assisted methodOrdered By: Theo Thakkar on 02-25-2024 Granular casts Computer assisted (U) [#/Area] 5-9 [LPF] High None Seen [facility] Hematocrit Auto (Bld) [Volum e fraction]Ordered By: Theo Thakkar on 02-25-2024 Hematocrit (Bld) [Volume fraction] 34.7 % Low 38.8-50.0 [facility] Hemoglobin Test strip Ql (U) Ordered By: Theo Thakkar on 02-25-2024 Hemoglobin Ql (U) 1+ High Negative [facility] Hemoglobin [Mass/volume] in BloodOrdered By: Theo Thakkar on 02-25-2024 Hemoglobin (Bld) [Mass/Vol] 11.4 g/dL Low 13.0-17.0 [facility] Hyaline casts [#/area] in Ur ine sediment by Automated countOrdered By: Theo Thakkar on 02-25-2024 Hyaline casts Auto (Urine sed) [#/Area] 20-49 [LPF] High 0-8 [facility] Ketones Test strip Ql (U)Ord ered By: Theo Thakkar on 02-25-2024 Ketones Ql (U) Negative Negative [facility] Leukocyte clumps [Presence] in Urine by AutomatedOrdered By: Theo Thakkar on 02-25-2024 Leukocyte clumps Auto Ql (U) Many [LPF] High None Seen [facility] Leukocyte esterase [Presence ] in Urine by Test stripOrdered By: Theo Thakkar on 02-25-2024 Leukocyte esterase Test strip Ql (U) 4+ High Negative [facility] Leukocytes [#/area] in Urine sediment by Automated countOrdered By: Theo Thakkar on 02-25-2024 WBC Auto (Urine sed) [#/Area] Innumerable [HPF] High 0-4 [facility] Leukocytes [#/volume] correc diana for nucleated erythrocytes in Blood by Automated counOrdered By: Theo Thakkar on 02-25-2024 WBC corrected for nucl RBC Auto (Bld) [#/Vol] 6.9 10*3/uL 4.1-10.5 [facility] MCH Auto (RBC) [Entitic mass ]Ordered By: Theo Thakkar on 02-25-2024 MCH (RBC) [Entitic mass] 28.4 pg 27.5-35.2 [facility] MCHC Auto (RBC) [Mass/Vol]Or dered By: Theo Thakkar on 02-25-2024 MCHC (RBC) [Mass/Vol] 32.9 g/dL 32.5-35.6 [facility] MCV Auto (RBC) [Entitic vol] Ordered By: Theo Thakkar on 02-25-2024 MCV (RBC) [Entitic vol] 86.3 fL 83.5-101 [facility] Magnesium [Mass/volume] in S jaime or PlasmaOrdered By: Theo Thakkar on 02-25-2024 Magnesium [Mass/Vol] 2.2 mg/dL 1.9-2.7 [facility] Mucus [Presence] in Urine by AutomatedOrdered By: Theo Thakkar on 02-25-2024 Mucus Auto Ql (U) Rare [LPF] [facility] Nitrite Test strip Ql (U)Ord ered By: Theo Thakkar on 02-25-2024 Nitrite Ql (U) Negative Negative [facility] No Panel InformationOrdered By: Theo Thakkar on 02-25-2024 Estimated GFR (CKD-EPI) 41.634 mL/Min [facility] Creatinine Clearance (Chem N/A [facility] Parathyrin.intact [Mass/volu me] in Serum or PlasmaOrdered By: Theo Thakkar on 02-25-2024 Parathyrin.intact [Mass/Vol] 97.8 pg/mL High 12-88 [facility] Phosphate [Mass/volume] in S jaime or PlasmaOrdered By: Theo Thakkar on 02-25-2024 Phosphate [Mass/Vol] 3.6 mg/dL 2.5-4.5 [facility] Platelet mean volume Auto (B ld) [Entitic vol]Ordered By: Theo Thakkar on 02-25-2024 Platelet mean volume (Bld) [Entitic vol] 8.9 fL 6.6-10.1 [facility] Platelets Auto (Bld) [#/Vol] Ordered By: Theo Thakkar on 02-25-2024 Platelets (Bld) [#/Vol] 305 10*3/uL 150-450 [facility] Potassium [Moles/volume] in Serum or PlasmaOrdered By: Theo Thakkar on 02-25-2024 Potassium [Moles/Vol] 4.8 mmol/L 3.5-5.1 [facility] Protein Test strip (U) [Mass /Vol]Ordered By: Theo Thakkar on 02-25-2024 Protein (U) [Mass/Vol] 100 mg/dL High Negative [facility] Protein [Mass/volume] in Uri neOrdered By: Theo Thakkar on 02-25-2024 Protein (U) [Mass/Vol] 136 mg/dL High 0-9 [facility] RBC Auto (Bld) [#/Vol]Ordere d By: Theo Thakkar on 02-25-2024 RBC (Bld) [#/Vol] 4.02 10*6/uL 3.90-5.60 [facility] Serum or plasma anion gap de terminationOrdered By: Theo Thakkar on 02-25-2024 Anion gap [Moles/Vol] 11.9 mmol/L 6.0-15.0 [facility] Sodium [Moles/volume] in Ser um or PlasmaOrdered By: Theo Thakkar on 02-25-2024 Sodium [Moles/Vol] 137 mmol/L 136-145 [facility] Specific gravity Test strip (U) [Rel density]Ordered By: Theo Thakkar on 02-25-2024 Specific gravity (U) [Rel density] 1.018 1.001-1.03 0 [facility] Urate [Mass/volume] in Serum or PlasmaOrdered By: Theo Thakkar on 02-25-2024 Urate [Mass/Vol] 5.7 mg/dL 4.4-7.6 [facility] Urea nitrogen [Mass/volume] in Serum or PlasmaOrdered By: Theo Thakkar on 02-25-2024 Urea nitrogen [Mass/Vol] 23 mg/dL 7-25 [facility] Urine appearanceOrdered By: Theo Thakkar on 02-25-2024 Appearance (U) Cloudy Abnormal Clear [facility] Urine culture routineOrdered By: Theo Thakkar on 02-25-2024 Bacteria identified Cx Nom (U) Staphylococcus aureus Abnormal [facility] Urine protein/creatinine rat ioOrdered By: Theo Thakkar on 02-25-2024 Protein/Creatinine (U) [Ratio] 786 mg/g{Cre} High 0-200 [facility] Urobilinogen Test strip (U) [Mass/Vol]Ordered By: Theo Thakkar on 02-25-2024 Urobilinogen (U) [Mass/Vol] Normal mg/dL Normal [facility] Vitamin D+Metabolites [Mass/ volume] in Serum or PlasmaOrdered By: Theo Thakkar on 02-25-2024 Vitamin D+Metabolites [Mass/Vol] 60.3 ng/mL 30-100 [facility] Comment on above: VITAMIN D STATUS 25( [place])VITAMIN D RANGE (ng/mL) Deficient <20 Insufficient 20 to <30Sufficient 30 to 100Reference: Grecia MF,Wayne NC, John VILLEGAS, et al. Evaluation,treatment, and prevention of vitamin D deficiency; an Endocrine Society clinical practice guideline. JCEM. 2010; 96(7):1911-30. pH Test strip (U)Ordered By: Theo Thakkar on 02-25-2024 pH (U) 6.0 [pH] 5.0-9.0 [facility] Lab Reportson 10-04-2023 Lab Reports [id number]#[id number] Normal [facility] Alanine aminotransferase [En zymatic activity/volume] in Serum or PlasmaOrdered By: Shaikh Dotty on 10-01-2023 ALT [Catalytic activity/Vol] 13 U/L 7-52 [facility] Albumin [Mass/volume] in Ser um or Plasma by Bromocresol green (BCG) dye binding methoOrdered By: Shaikh Dotty on 10-01-2023 Albumin BCG dye [Mass/Vol] 4.2 g/dL 3.5-5.7 [facility] Alkaline phosphatase [Enzyma tic activity/volume] in Serum or PlasmaOrdered By: Shaikh Dotty on 10-01-2023 ALP [Catalytic activity/Vol] 58 U/L 34-104 [facility] Aspartate aminotransferase [ Enzymatic activity/volume] in Serum or PlasmaOrdered By: Shaikh Dotty on 10-01-2023 AST [Catalytic activity/Vol] 13 U/L 13-39 [facility] Basophils Auto (Bld) [#/Vol] Ordered By: Shaikh Dotty on 10-01-2023 Basophils (Bld) [#/Vol] 0.0 10*3/uL 0.0-0.2 [facility] Basophils/100 WBC Auto (Bld) Ordered By: Shaikh Dotty on 10-01-2023 Basophils/100 WBC (Bld) 0.4 % . [facility] Bilirubin.total [Mass/volume ] in Serum or PlasmaOrdered By: Shaikh Dotty on 10-01-2023 Bilirubin [Mass/Vol] 0.3 mg/dL 0.3-1.0 [facility] Calcium [Mass/volume] in Ser um or PlasmaOrdered By: Shaikh Dotty on 10-01-2023 Calcium [Mass/Vol] 9.4 mg/dL 8.6-10.3 [facility] Carbon dioxide, total [Moles /volume] in Serum or PlasmaOrdered By: Shaikh Dotty on 10-01-2023 CO2 [Moles/Vol] 27.0 mmol/L 21.0-31.0 [facility] Chloride [Moles/volume] in S jaime or PlasmaOrdered By: Shaikh Dotty on 10-01-2023 Chloride [Moles/Vol] 108 mmol/L 98-107 [facility] Cholesterol [Mass/volume] in Serum or PlasmaOrdered By: Shaikh Dotty on 10-01-2023 Cholesterol [Mass/Vol] 135 mg/dL 140-200 [facility] Comment on above: Chol less than 200 m g/dl low riskChol 201-239 mg/dl borderline riskChol 240 mg/dl and greater high risk Cholesterol in LDL Calc [Mas s/Vol]Ordered By: Shaikh Dotty on 10-01-2023 Cholesterol in LDL [Mass/Vol] 81 mg/dL 0-100 [facility] Comment on above: LDL ATP III CLASSIFI CATIONLDL less than 100 mg/dL OptimalLDL 100-129 mg/dL Near or above optimalLDL 130-159 mg/dL Borderline highLDL 160-189 mg/dL HighLDL greater than 189 mg/dL Very high Cholesterol in VLDL Calc [Ma ss/Vol]Ordered By: Shaikh Dotty on 10-01-2023 Cholesterol in VLDL [Mass/Vol] 16 mg/dL [facility] Creatinine [Mass/volume] in Serum or PlasmaOrdered By: Shaikh Dotty on 10-01-2023 Creatinine [Mass/Vol] 1.89 mg/dL 0.70-1.30 [facility] Creatinine [Mass/volume] in UrineOrdered By: Shaikh Dotty on 10-01-2023 Creatinine (U) [Mass/Vol] 164.0 mg/dL [facility] Comment on above: No reference range e stablished Eosinophils Auto (Bld) [#/Vo l]Ordered By: Shaikh Dotty on 10-01-2023 Eosinophils (Bld) [#/Vol] 0.2 10*3/uL 0.0-0.45 [facility] Eosinophils/100 WBC Auto (Bl d)Ordered By: Shaikh Dotty on 10-01-2023 Eosinophils/100 WBC (Bld) 2.7 % . [facility] Erythrocyte distribution wid th Auto (RBC) [Ratio]Ordered By: Shaikh Dotty on 10-01-2023 Erythrocyte distribution width (RBC) [Ratio] 14.9 % 12.0-14.8 [facility] Globulin Calc (S) [Mass/Vol] Ordered By: Shaikh Dotty on 10-01-2023 Globulin (S) [Mass/Vol] 2.5 g/dL [facility] Glucose [Mass/volume] in Ser um or PlasmaOrdered By: Shaikh Dotty on 10-01-2023 Glucose [Mass/Vol] 115 mg/dL 70-100 [facility] Comment on above: ADA recommended refe rence rangeRandom Glucose Reference Range is dependent on time and content of last meal. Glucose of more than 200 mg/dL in a nonstressed, ambulatory subject supports the diagnosis of Diabetes Mellitus. Glucose mean value [Mass/vol ume] in Blood Estimated from glycated hemoglobinOrdered By: Shaikh Dotty on 10-01-2023 Average glucose Estimated from glycated hemoglobin (Bld) [Mass/Vol] 128 mg/dL [facility] Hematocrit Auto (Bld) [Volum e fraction]Ordered By: Shaikh Dotty on 10-01-2023 Hematocrit (Bld) [Volume fraction] 37.2 % 38.8-50.0 [facility] Hemoglobin A1c percentageOrd ered By: Shaikh Dotty on 10-01-2023 HbA1c (Bld) [Mass fraction] 6.1 % 4.3-5.6 [facility] Comment on above: Increased risk for d iabetes: 5.7 - 6.4diabetes: >6.4glycemic control for adults with diabetes: <7.0 Hemoglobin [Mass/volume] in BloodOrdered By: Shaikh Dotty on 10-01-2023 Hemoglobin (Bld) [Mass/Vol] 12.3 g/dL 13.0-17.0 [facility] Leukocytes [#/volume] correc diana for nucleated erythrocytes in Blood by Automated counOrdered By: Shaikh Dotty on 10-01-2023 WBC corrected for nucl RBC Auto (Bld) [#/Vol] 8.3 10*3/uL 4.1-10.5 [facility] Lymphocytes Auto (Bld) [#/Vo l]Ordered By: Shaikh Dotty on 10-01-2023 Lymphocytes (Bld) [#/Vol] 1.3 10*3/uL 1.00-4.8 [facility] Lymphocytes/100 WBC Auto (Bl d)Ordered By: Shaikh Dotty on 10-01-2023 Lymphocytes/100 WBC (Bld) 16.1 % . [facility] MCH Auto (RBC) [Entitic mass ]Ordered By: Shaikh Dotty on 10-01-2023 MCH (RBC) [Entitic mass] 30.5 pg 27.5-35.2 [facility] MCHC Auto (RBC) [Mass/Vol]Or dered By: Shaikh Dotty on 10-01-2023 MCHC (RBC) [Mass/Vol] 33.1 g/dL 32.5-35.6 [facility] MCV Auto (RBC) [Entitic vol] Ordered By: Shaikh Dotty on 10-01-2023 MCV (RBC) [Entitic vol] 92.2 fL 83.5-101 [facility] Monocytes Auto (Bld) [#/Vol] Ordered By: Shaikh Dotty on 10-01-2023 Monocytes (Bld) [#/Vol] 0.6 10*3/uL 0.0-0.8 [facility] Monocytes/100 WBC Auto (Bld) Ordered By: Shaikh Dotty on 10-01-2023 Monocytes/100 WBC (Bld) 7.6 % . [facility] Neutrophils Auto (Bld) [#/Vo l]Ordered By: Shaikh Dotty on 10-01-2023 Neutrophils (Bld) [#/Vol] 6.1 10*3/uL 1.8-7.7 [facility] Neutrophils/100 WBC Auto (Bl d)Ordered By: Shaikh Dotty on 10-01-2023 Neutrophils/100 WBC (Bld) 73.2 % . [facility] No Panel InformationOrdered By: Shaikh Dotty on 10-01-2023 Estimated GFR (CKD-EPI) 35.887 mL/Min [facility] Creatinine Clearance (Chem N/A [facility] Nucleated erythrocytes [Pres ence] in Blood by Automated countOrdered By: Shaikh Dotty on 10-01-2023 Nucleated RBC Auto Ql (Bld) 0.1 /100{WBC} 0-0.5 [facility] Platelet mean volume Auto (B ld) [Entitic vol]Ordered By: Shaikh Dotty on 10-01-2023 Platelet mean volume (Bld) [Entitic vol] 8.7 fL 6.6-10.1 [facility] Platelets Auto (Bld) [#/Vol] Ordered By: Shaikh Dotty on 10-01-2023 Platelets (Bld) [#/Vol] 270 10*3/uL 150-450 [facility] Potassium [Moles/volume] in Serum or PlasmaOrdered By: Shaikh Dotty on 10-01-2023 Potassium [Moles/Vol] 4.9 mmol/L 3.5-5.1 [facility] Prostate specific Ag [Mass/v olume] in Serum or PlasmaOrdered By: Barbara Johnston on 10-01-2023 Prostate specific Ag [Mass/Vol] 0.420 ng/mL 0.000-4.00 0 [facility] Comment on above: Serial tumor marker results determined by assays using different manufacturers or methods may not be comparable.[facility] hr leader and method:MELY GoGoPinEL DXI, CHEMILUMINESCENT IMMUNOASSAY. Protein [Mass/volume] in Ser um or PlasmaOrdered By: Shaikh Dotty on 10-01-2023 Protein [Mass/Vol] 6.7 g/dL 6.4-8.9 [facility] Protein [Mass/volume] in Uri neOrdered By: Shaikh Dotty on 10-01-2023 Protein (U) [Mass/Vol] 124 mg/dL 0-9 [facility] RBC Auto (Bld) [#/Vol]Ordere d By: Shaikh Dotty on 10-01-2023 RBC (Bld) [#/Vol] 4.04 10*6/uL 3.90-5.60 [facility] Serum or plasma albumin/glob ulin mass ratioOrdered By: Shaikh Dotty on 10-01-2023 Albumin/Globulin [Mass ratio] 1.7 {ratio} [facility] Serum or plasma anion gap de terminationOrdered By: Shaikh Dotty on 10-01-2023 Anion gap [Moles/Vol] 9.9 mmol/L 6.0-15.0 [facility] Serum or plasma high density lipoprotein (HDL) cholesterol measurementOrdered By: Shaikh Dotty on 10-01-2023 Cholesterol in HDL [Mass/Vol] 38 mg/dL 23-92 [facility] Comment on above: HDL CHOL ATP-III CLA SSIFICATION Cardiovascular RiskHDL > or equal to 60 mg/dL LOWHDL < 40 mg/dL HIGH Serum or plasma total choles terol/high density lipoprotein (HDL) cholesterol mass ratOrdered By: Shaikh Dotty on 10-01-2023 Cholesterol.total/Chol esterol in HDL [Mass ratio] 3.6 {ratio} <5.0 [facility] Sodium [Moles/volume] in Ser um or PlasmaOrdered By: Shaikh Dotty on 10-01-2023 Sodium [Moles/Vol] 140 mmol/L 136-145 [facility] Thyrotropin [Units/volume] i n Serum or PlasmaOrdered By: Shaikh Dotty on 10-01-2023 TSH Qn 1.61 m[IU]/L 0.45-5.33 [facility] Triglyceride [Mass/volume] i n Serum or PlasmaOrdered By: Shaikh Dotty on 10-01-2023 Triglyceride [Mass/Vol] 80 mg/dL 0-149 [facility] Comment on above: TRIG ATP III CLASSIF ICATIONTRIG less than 150 mg/dL NormalTRIG 150-199 mg/dL Borderline highTRIG 200-500 mg/dL High TRIG greater than 500 mg/dL Very highStandard traceable to the Center for Disease Conrtrol and Prevention (CDC) test method. Urea nitrogen [Mass/volume] in Serum or PlasmaOrdered By: Shaikh Dotty on 10-01-2023 Urea nitrogen [Mass/Vol] 33 mg/dL 7-25 [facility] WBC Auto (Bld) [#/Vol]Ordere d By: Shaikh Dotty on 10-01-2023 WBC (Bld) [#/Vol] 8.3 10*3/uL 4.1-10.5 [facility] Ambulatory Visit Summaryon 0 09-18-2023 Ambulatory Visit [...] prescribing physician if questions or concerns acetaminophen-hydrocodone ([place] 5/325 Tab) amlodipine (amLODIPine 5 mg Tab) [...] with PRESTON MAK, GLO Ortega When: Where: [address] [place] [address]- Medications What How Much When Instructions Unchanged tadalafil (Cialis 20 mg Tab) 1 Tablets By Mouth As Directed Do not exceed 20mg within 48 hours. Unchanged acetaminophen-hydrocodone ([place] 5/ 325 Tab) By Mouth Every 6 [...] bladder diary (more content not included)... Normal [facility] Patient Educationon 09-18-19 24 Patient Education Urology [...] keep your urine pale yellow. ? Take qrdf-vsd-qpbhcyr or prescription medicines. ? Eat foods that are high in fiber, such as beans, whole grains, and fresh fruits and vegetables. ? Limit foods that are high in fat and processed sugars, such as fried or sweet foods. General instructions ? Take ocas-imu-yncyssj and prescription medicines only as told by [...] muscles that help control urination. ? Take yygb-izn-eoswtln and prescription medicines only as told by your health care provider. ? Contact a health care provider if your symptoms do not improve or get worse. This information is not intended to replace advice given to you by your health care provider. Make sure you discuss any questions you have with your health care provider. Document Revised: 12/21/2020 Document Reviewed: 12/21/2020 [email or web address] Patient Education ? [address] [facility] Urology Office/Clinic Noteon 09-18-2023 Urology Office/Clinic [...] Contact Information PRESTON MAK, Barbara Warner, URL [address] [place] [address]- Additional Instructions: 6 mos w/ PSA Patient Education Urinary Frequency, Adult I, Tabitha Saenz, personally scribed for Dr. Johnston on 09/18/2023 11:55:58. . Documentation recorded by the scribe, Tabitha Saenz, accurately reflects the services(s) I performed and decisions made by me. Authenticated by Dr. Johnston on 09/18/2023 11:59:13. Problem List/Past Medical History Ongoing Anxiety BPH with (more content not included)... Normal [facility] Comment on above: Result Comment: Elec tronically Signed By: Barbara JOHNSTON MD\.br\Date and Time Signed: 09/18/23 11:59 EDT\.br\Electronically Co-Signed By: Tabitha Saenz\.br\Date and Time Co-Signed: 09/18/23 11:56 EDT ECG 12 Leadon 08-18-2023 Normal sinus rhythm, right bundle branch block and left anterior fascicular block consistent with bifascicular block, abnormal ECG [facility] Work Phone: C Urineon 07-11-2023 Bacteria identified Cx Nom (U) Microbiology PROCEDURE: Urine Culture [R1] SOURCE: U Random BODY SITE: COLLECTED DATE/TIME: 07/07/2023 09:50 EST RECEIVED DATE/TIME: 07/07/2023 19:09 EST START DATE/TIME: 07/07/2023 19:09 EST FREE TEXT SOURCE: BRITNI ENCINAS, CLAIRE JAMES [...] Locations R1: This test was performed at: [facility], [address] [place] [address], [id number] , [place], Normal [facility] Comment on above: Performed By: #### [id number] ####[facility] [address] [place] [address] Consultation Noteon 07-08-19 Consultation Note [id number]#1.00TIFF Normal [facility] Lab Reportson 07-08-2023 Lab Reports [id number]#1.00TIFF Normal [facility] Patient Educationon 07-07-19 Patient Education Urology Urinary [...] keep your urine pale yellow. ? Take nlbb-asj-shshxsx or prescription medicines. ? Eat foods that are high in fiber, such as beans, whole grains, and fresh fruits and vegetables. ? Limit foods that are high in fat and processed sugars, such as fried or sweet foods. General instructions ? Take jyzd-gja-rlsahtp and prescription medicines only as told by [...] muscles that help control urination. ? Take wxfq-gxf-jvomwnx and prescription medicines only as told by your health care provider. ? Contact a health care provider if your symptoms do not improve or get worse. This information is not intended to replace advice given to you by your health care provider. Make sure you discuss any questions you have with your health care provider. Document Revised: 12/21/2020 Document Reviewed: 12/21/2020 [email or web address] Patient Education ? 2022 [email or web address] [facility] Urology Office/Clinic Noteon 07-07-2023 Urology Office/Clinic [...] Information PRESTON MAK, Barbara Warner, URL [address] [place] [address]- Additional Instructions: 3 mos Patient Education Urinary Frequency, Adult Documentation recorded by the scribe Tabitha Saenz accurately reflects the services(s) I performed and decisions made (more content not included)... Normal [facility] Comment on above: Result Comment: Elec tronically Signed By: CLAIRE JAMES PA-C\.br\Date and Time Signed: 07/07/23 10:08 EST\.br\Electronically Co-Signed By: Tabitha Saenz\.br\Date and Time Co-Signed: 07/07/23 09:50 EST NUCLEAR STRESS TESTon 2023 NUCLEAR STRESS TEST Interpreted By: Inge Dickerson and Beal Gina STUDY: MYOCARDIAL PERFUSION STRESS TEST WITH LEXISCAN Performing facility: [facility], [address] [place] [address], [address], [place] [address] [facility] Provider: Sylvester Grayson DO, FACC PCP: Dr. S. FAWWAD Supervising provider: Inge Dickerson MD INDICATION: HTN, Bilateral Carotid, Chest Pain HISTORY: Gender: M; Age: 77 y/o ; Height: HT 177.8 cm cm; Weight: WT 89.812 kg kg. CAD; High Cholesterol; Abnormal EKG; RBBB Previous [place]; Family HX CAD; Chest Pain; COPD; PAD, CVA, Carotid Disease, CKD Currently smoking. Cardiac catheterization. PTCA 1990s RCA. COMPARISON: No comparison. ACCESSION NUMBER(S): [id number] ORDERING CLINICIAN: CHAIM GRAYSON TECHNIQUE: ONE DAY [...] Inge Dickerson 06/19/2023 11:20 AM Dictation workstation: [id number] [facility] CNOVon 06-12-2023 CNOV Office Visit (SPSLUH ) -- YESENIA BROUSSARD ([id number]) 1945 M Date Time Provider Department 06/12/23 [...] heat Medications: [facility] MEDICATIONS: Hydrocodone, Gabapentin 2018 back surgery [...] pleasant 77-year-old male who recently moved from [place] to [place]. He reports longstanding history of back and [...] law suit/legal clai (more content not included)... [facility] ECG 12 Leadon 06-04-2023 Sinus rhythm, right bundle branch block, left axis deviation, abnormal ECG [facility] Work Phone: Lab Reportson 05-26-2023 Lab Reports [id number]#1.00TIFF [facility] Lab Reportson 05-18-2023 Lab Reports [id number]#1.00TIFF [facility] Physician Orderon 05-06-2023 Physician Order [id number]#1.00TIFF [facility] C Urineon 04-25-2023 Bacteria identified Cx [...] Locations R1: This test was performed at: [facility], [address] [place] [address], [id number]- , , [facility] Comment on above: Performed By: #### [id number] ####[address] [place] [address] [place] 04-22-2023 Screens [id number]#1.00TIFF [facility] Screens [id number]#1.00TIFF [facility] Ambulatory Visit Summaryon 1 06-21-2022 Ambulatory Visit Summary YESENIA BROUSSARD :1945 Visit Date:04/21/2023 Ambulatory Visit Instructions Your Diagnosis Nocturia UTI symptoms Erectile dysfunction Prostate cancer BPH with urinary obstruction Tests Performed Urnls Dip Stick Auto w/o Microscopy POC 30118 Your Care Team Attending Physician - CLAIRE JAMES PA-C Primary Care Physician - SHAIKH STORM MD This Is Your Medications List oxybutynin (oxybutynin 5 mg Tab) Contact prescribing physician if questions or concerns acetaminophen-hydrocodone ([place] 5/325 Tab) amlodipine (amLODIPine 5 mg Tab) [...] these instructions at home: Medicines ? Take egao-vbo-oqcflft and prescription medicines only as told by [...] include cig (more content not included)... Normal [facility] Urology Office/Clinic Noteon 04-21-2023 Urology Office/Clinic [...] office.*No recent rad onc note found on [employer] or [employer] BPH *No BPH meds at this time* [...] 0.05mg qhs. Rx sent to [facility] [place]. -Check electrolytes in 1 wk after starting [...] 50mg prn. Rx sent to [facility] [place]. 4. Prostate cancer (C61: Malignant neoplasm of [...] obstruction (N4 (more content not included)... Normal [facility] Comment on above: Result Comment: Elec tronically Signed By: CLAIRE JAMES PA-C\.br\Date and Time Signed: 04/21/23 09:33 EST\.br\Electronically Co-Signed By: Rosario Byrne\.br\Date and Time Co-Signed: 04/21/23 09:14 EST Creatinine [Mass/volume] in Serum or PlasmaOrdered By: Jose Martin Mchugh on 03-23-2023 Creatinine [Mass/Vol] 2.03 mg/dL 0.70-1.30 [facility] No Panel InformationOrdered By: Jose Martin Mchugh on 03-23-2023 Estimated GFR (CKD-EPI) 33.144 mL/Min [facility] Creatinine Clearance (Chem 34.29 [facility] Urea nitrogen [Mass/volume] in Serum or PlasmaOrdered By: Jose Martin Mchugh on 03-23-2023 Urea nitrogen [Mass/Vol] 35 mg/dL 12-23 [facility] Albumin [Mass/volume] in Ser um or Plasma by Bromocresol green (BCG) dye binding methoOrdered By: Theo Thakkar on 03-09-2023 Albumin BCG dye [Mass/Vol] 4.1 g/dL 3.5-5.7 [facility] Automated erythrocytes count in urine sediment (number/area)Ordered By: Theo Thakkar on 03-09-2023 RBC Auto (Urine sed) [#/Area] 5-9 [HPF] 0-4 [facility] Automated leukocytes count i n urine sediment (number/area)Ordered By: Theo Thakkar on 03-09-2023 WBC Auto (Urine sed) [#/Area] Innumerable [HPF] 0-4 [facility] Bilirubin Test strip Ql (U)O rdered By: Theo Thakkar on 03-09-2023 Bilirubin Ql (U) Negative Negative [facility] Calcium [Mass/volume] in Ser um or PlasmaOrdered By: Theo Thakkar on 03-09-2023 Calcium [Mass/Vol] 9.3 mg/dL 8.6-10.3 [facility] Carbon dioxide, total [Moles /volume] in Serum or PlasmaOrdered By: Theo Thakkar on 03-09-2023 CO2 [Moles/Vol] 26.4 mmol/L 21.0-31.0 [facility] Chloride [Moles/volume] in S jaime or PlasmaOrdered By: Theo Thakkar on 03-09-2023 Chloride [Moles/Vol] 104 mmol/L 98-107 [facility] Color Auto (U)Ordered By: Ab bola Thakkar on 03-09-2023 Color (U) Yellow Yellow [facility] Creatinine [Mass/volume] in Serum or PlasmaOrdered By: Theo Thakkar on 03-09-2023 Creatinine [Mass/Vol] 1.83 mg/dL 0.70-1.30 [facility] Creatinine [Mass/volume] in UrineOrdered By: Theo Thakkar on 03-09-2023 Creatinine (U) [Mass/Vol] 162.0 mg/dL 14.0-26.0 [facility] Glucose [Mass/volume] in Ser um or PlasmaOrdered By: Theo Thakkar on 03-09-2023 Glucose [Mass/Vol] 126 mg/dL 70-100 [facility] Comment on above: ADA recommended refe rence rangeRandom Glucose Reference Range is dependent on time and content of last meal. Glucose of more than 200 mg/dL in a nonstressed, ambulatory subject supports the diagnosis of Diabetes Mellitus. Ketones Auto test strip (U) [Mass/Vol]Ordered By: Theo Thakkar on 03-09-2023 Ketones (U) [Mass/Vol] Negative Negative [facility] - UrinalysisOrder ed By: Theo Thakkar on 03-09-2023 Hyaline casts LM Ql (Urine sed) None seen [LPF] 0-8 [facility] Magnesium [Mass/volume] in S jaime or PlasmaOrdered By: Theo Thakkar on 03-09-2023 Magnesium [Mass/Vol] 2.2 mg/dL 1.9-2.7 [facility] Nitrite Test strip Ql (U)Ord ered By: Theo Thakkar on 03-09-2023 Nitrite Ql (U) Negative Negative [facility] No Panel InformationOrdered By: Theo Thakkar on 03-09-2023 Estimated GFR (CKD-EPI) 37.537 mL/Min [facility] Creatinine Clearance (Chem N/A [facility] Parathyrin.intact [Mass/volu me] in Serum or PlasmaOrdered By: Teho Thakkar on 03-09-2023 Parathyrin.intact [Mass/Vol] 128.0 pg/mL 12-88 [facility] Phosphate [Mass/volume] in S jaime or PlasmaOrdered By: Theo Thakkar on 03-09-2023 Phosphate [Mass/Vol] 4.1 mg/dL 3.7-7.2 [facility] Potassium [Moles/volume] in Serum or PlasmaOrdered By: Theo Thakkar on 03-09-2023 Potassium [Moles/Vol] 4.7 mmol/L 3.5-5.1 [facility] Protein Auto test strip (U) [Mass/Vol]Ordered By: Theo Thakkar on 03-09-2023 Protein (U) [Mass/Vol] 100 mg/dL Negative [facility] Protein [Mass/volume] in Uri neOrdered By: Theo Thakkar on 03-09-2023 Protein (U) [Mass/Vol] 104 mg/dL 0-9 [facility] Serum or plasma anion gap de terminationOrdered By: Theo Thakkar on 03-09-2023 Anion gap [Moles/Vol] 10.3 mmol/L 6.0-15.0 [facility] Sodium [Moles/volume] in Ser um or PlasmaOrdered By: Theo Thakkar on 03-09-2023 Sodium [Moles/Vol] 136 mmol/L 136-145 [facility] Specific gravity Auto test s trip (U) [Rel density]Ordered By: Theo Thakkar on 03-09-2023 Specific gravity (U) [Rel density] 1.018 1.001-1.03 0 [facility] Squamous epithelial cells de tection in urine sediment by light microscopyOrdered By: Theo Thakkar on 03-09-2023 Epithelial cells.squamous LM Ql (Urine sed) None seen [HPF] 0-2 [facility] Urate [Mass/volume] in Serum or PlasmaOrdered By: Theo Thakkar on 03-09-2023 Urate [Mass/Vol] 7.1 mg/dL 4.4-7.6 [facility] Urea nitrogen [Mass/volume] in Serum or PlasmaOrdered By: Theo Thakkar on 03-09-2023 Urea nitrogen [Mass/Vol] 30 mg/dL 7-25 [facility] Urine bacteria detection by automated methodOrdered By: Theo Thakkar on 03-09-2023 Bacteria Auto Ql (U) None seen None Seen [facility] Urine clarity by refractomet ry automatedOrdered By: Theo Thakkar on 03-09-2023 Clarity Refractometry automated (U) Cloudy Clear [facility] Urine culture routineOrdered By: Theo Thakkar on 03-09-2023 Bacteria identified Cx Nom (U) Staphylococcus aureus [facility] Bacteria identified Cx Nom (U) Staphylococcus aureus [facility] Urine glucose measurement by automated test strip (mass/volume)Ordered By: Theo Thakkar on 03-09-2023 Glucose Auto test strip (U) [Mass/Vol] Normal mg/dL Normal [facility] Urine hemoglobin detection b y automated test stripOrdered By: Theo Thakkar on 03-09-2023 Hemoglobin Auto test strip Ql (U) 1+ Negative [facility] Urine leukocyte esterase det ection by automated test stripOrdered By: Theo Thakkar on 03-09-2023 Leukocyte esterase Auto test strip Ql (U) 4+ Negative [facility] Urine protein/creatinine rat ioOrdered By: Theo Thakkar on 03-09-2023 Protein/Creatinine (U) [Ratio] 642 mg/g{Cre} 0-200 [facility] Urobilinogen Auto test strip (U) [Mass/Vol]Ordered By: Theo Thakkar on 03-09-2023 Urobilinogen (U) [Mass/Vol] Normal mg/dL Normal [facility] Vitamin D+Metabolites [Mass/ volume] in Serum or PlasmaOrdered By: Theo Thakkar on 03-09-2023 Vitamin D+Metabolites [Mass/Vol] 18.9 ng/mL 30-100 [facility] Comment on above: VITAMIN D STATUS 25( [place])VITAMIN D RANGE (ng/mL) Deficient <20 Insufficient 20 to <30Sufficient 30 to 100Reference: Grecia MF,Wayne PALMER, John VILLEGAS, et al. Evaluation,treatment, and prevention of vitamin D deficiency; an Endocrine Society clinical practice guideline. JCEM. 2010; 96(7):1911-30. pH Auto test strip (U)Ordere d By: Theo Thakkar on 03-09-2023 pH (U) 5.5 [pH] 5.0-9.0 [facility] Alanine aminotransferase [En zymatic activity/volume] in Serum or PlasmaOrdered By: Shaikh Dotty on 01-09-2023 ALT [Catalytic activity/Vol] 12 U/L 7-52 [facility] Albumin [Mass/volume] in Ser um or Plasma by Bromocresol green (BCG) dye binding methoOrdered By: Shaikh Dotty on 01-09-2023 Albumin BCG dye [Mass/Vol] 4.2 g/dL 3.5-5.7 [facility] Alkaline phosphatase [Enzyma tic activity/volume] in Serum or PlasmaOrdered By: Shaikh Dotty on 01-09-2023 ALP [Catalytic activity/Vol] 66 U/L 34-104 [facility] Aspartate aminotransferase [ Enzymatic activity/volume] in Serum or PlasmaOrdered By: Shaikh Dotty on 01-09-2023 AST [Catalytic activity/Vol] 13 U/L 13-39 [facility] Basophils Auto (Bld) [#/Vol] Ordered By: Shaikh Dotty on 01-09-2023 Basophils (Bld) [#/Vol] 0.0 10*3/uL 0.0-0.2 [facility] Basophils/100 WBC Auto (Bld) Ordered By: Shaikh Dotty on 01-09-2023 Basophils/100 WBC (Bld) 0.5 % . [facility] Bilirubin.total [Mass/volume ] in Serum or PlasmaOrdered By: Shaikh Dotty on 01-09-2023 Bilirubin [Mass/Vol] 0.3 mg/dL 0.3-1.0 [facility] Calcium [Mass/volume] in Ser um or PlasmaOrdered By: Shaikh Dotty on 01-09-2023 Calcium [Mass/Vol] 9.2 mg/dL 8.6-10.3 [facility] Carbon dioxide, total [Moles /volume] in Serum or PlasmaOrdered By: Shaikh Dotty on 01-09-2023 CO2 [Moles/Vol] 26.1 mmol/L 21.0-31.0 [facility] Chloride [Moles/volume] in S jaime or PlasmaOrdered By: Shaikh Dotty on 01-09-2023 Chloride [Moles/Vol] 109 mmol/L 98-107 [facility] Cholesterol [Mass/volume] in Serum or PlasmaOrdered By: Shaikh Dotty on 01-09-2023 Cholesterol [Mass/Vol] 178 mg/dL 140-200 [facility] Comment on above: Chol less than 200 m g/dl low riskChol 201-239 mg/dl borderline riskChol 240 mg/dl and greater high risk Cholesterol in LDL Calc [Mas s/Vol]Ordered By: Shaikh Dotty on 01-09-2023 Cholesterol in LDL [Mass/Vol] 115 mg/dL 0-100 [facility] Comment on above: LDL ATP III CLASSIFI CATIONLDL less than 100 mg/dL OptimalLDL 100-129 mg/dL Near or above optimalLDL 130-159 mg/dL Borderline highLDL 160-189 mg/dL HighLDL greater than 189 mg/dL Very high Cholesterol in VLDL Calc [Ma ss/Vol]Ordered By: Shaikh Dotty on 01-09-2023 Cholesterol in VLDL [Mass/Vol] 32 mg/dL [facility] Creatinine [Mass/volume] in Serum or PlasmaOrdered By: Shaikh Dotty on 01-09-2023 Creatinine [Mass/Vol] 1.80 mg/dL 0.70-1.30 [facility] Eosinophils Auto (Bld) [#/Vo l]Ordered By: Shaikh Dotty on 01-09-2023 Eosinophils (Bld) [#/Vol] 0.2 10*3/uL 0.0-0.45 [facility] Eosinophils/100 WBC Auto (Bl d)Ordered By: Shaikh Dotty on 01-09-2023 Eosinophils/100 WBC (Bld) 3.9 % . [facility] Erythrocyte distribution wid th Auto (RBC) [Ratio]Ordered By: Shaikh Dotty on 01-09-2023 Erythrocyte distribution width (RBC) [Ratio] 14.6 % 12.0-14.8 [facility] Globulin Calc (S) [Mass/Vol] Ordered By: Shaikh Dotty on 01-09-2023 Globulin (S) [Mass/Vol] 2.7 g/dL [facility] Glucose [Mass/volume] in Ser um or PlasmaOrdered By: Shaikh Dotty on 01-09-2023 Glucose [Mass/Vol] 114 mg/dL 70-100 [facility] Comment on above: ADA recommended refe rence rangeRandom Glucose Reference Range is dependent on time and content of last meal. Glucose of more than 200 mg/dL in a nonstressed, ambulatory subject supports the diagnosis of Diabetes Mellitus. Hematocrit Auto (Bld) [Volum e fraction]Ordered By: Shaikh Dotty on 01-09-2023 Hematocrit (Bld) [Volume fraction] 40.3 % 38.8-50.0 [facility] Hemoglobin [Mass/volume] in BloodOrdered By: Shaikh Dotty on 01-09-2023 Hemoglobin (Bld) [Mass/Vol] 13.3 g/dL 13.0-17.0 [facility] Leukocytes [#/volume] correc diana for nucleated erythrocytes in Blood by Automated counOrdered By: Shaikh Dotty on 01-09-2023 WBC corrected for nucl RBC Auto (Bld) [#/Vol] 5.6 10*3/uL 4.1-10.5 [facility] Lymphocytes Auto (Bld) [#/Vo l]Ordered By: Shaikh Dotty on 01-09-2023 Lymphocytes (Bld) [#/Vol] 1.1 10*3/uL 1.00-4.8 [facility] Lymphocytes/100 WBC Auto (Bl d)Ordered By: Shaikh Dotty on 01-09-2023 Lymphocytes/100 WBC (Bld) 19.3 % . [facility] MCH Auto (RBC) [Entitic mass ]Ordered By: Shaikh Dotty on 01-09-2023 MCH (RBC) [Entitic mass] 30.0 pg 27.5-35.2 [facility] MCHC Auto (RBC) [Mass/Vol]Or dered By: Shaikh Dotty on 01-09-2023 MCHC (RBC) [Mass/Vol] 32.9 g/dL 32.5-35.6 [facility] MCV Auto (RBC) [Entitic vol] Ordered By: Shaikh Dotty on 01-09-2023 MCV (RBC) [Entitic vol] 91.2 fL 83.5-101 [facility] Monocytes Auto (Bld) [#/Vol] Ordered By: Shaikh Dotty on 01-09-2023 Monocytes (Bld) [#/Vol] 0.5 10*3/uL 0.0-0.8 [facility] Monocytes/100 WBC Auto (Bld) Ordered By: Shaikh Dotty on 01-09-2023 Monocytes/100 WBC (Bld) 8.7 % . [facility] Neutrophils Auto (Bld) [#/Vo l]Ordered By: Shaikh Dotty on 01-09-2023 Neutrophils (Bld) [#/Vol] 3.8 10*3/uL 1.8-7.7 [facility] Neutrophils/100 WBC Auto (Bl d)Ordered By: Shaikh Dotty on 01-09-2023 Neutrophils/100 WBC (Bld) 67.6 % . [facility] No Panel InformationOrdered By: Shaikh Dotty on 01-09-2023 Estimated GFR (CKD-EPI) 38.289 mL/Min [facility] Creatinine Clearance (Chem N/A [facility] Nucleated erythrocytes [Pres ence] in Blood by Automated countOrdered By: Shaikh Dotty on 01-09-2023 Nucleated RBC Auto Ql (Bld) 0.1 /100{WBC} 0-0.5 [facility] Platelet mean volume Auto (B ld) [Entitic vol]Ordered By: Shaikh Dotty on 01-09-2023 Platelet mean volume (Bld) [Entitic vol] 9.7 fL 6.6-10.1 [facility] Platelets Auto (Bld) [#/Vol] Ordered By: Shaikh Dotty on 01-09-2023 Platelets (Bld) [#/Vol] 173 10*3/uL 150-450 [facility] Potassium [Moles/volume] in Serum or PlasmaOrdered By: Shaikh Dotty on 01-09-2023 Potassium [Moles/Vol] 4.9 mmol/L 3.5-5.1 [facility] Protein [Mass/volume] in Ser um or PlasmaOrdered By: Shaikh Dotty on 01-09-2023 Protein [Mass/Vol] 6.9 g/dL 6.4-8.9 [facility] RBC Auto (Bld) [#/Vol]Ordere d By: Shaikh Dotty on 01-09-2023 RBC (Bld) [#/Vol] 4.42 10*6/uL 3.90-5.60 [facility] Serum or plasma albumin/glob ulin mass ratioOrdered By: Shaikh Dotty on 01-09-2023 Albumin/Globulin [Mass ratio] 1.6 {ratio} [facility] Serum or plasma anion gap de terminationOrdered By: Shaikh Dotty on 01-09-2023 Anion gap [Moles/Vol] 9.8 mmol/L 6.0-15.0 [facility] Serum or plasma high density lipoprotein (HDL) cholesterol measurementOrdered By: Shaikh Dotty on 01-09-2023 Cholesterol in HDL [Mass/Vol] 31 mg/dL 23 [facility] Comment on above: HDL CHOL ATP-III CLA SSIFICATION Cardiovascular RiskHDL > or equal to 60 mg/dL LOWHDL < 40 mg/dL HIGH Serum or plasma total choles terol/high density lipoprotein (HDL) cholesterol mass ratOrdered By: Shaikh Dotty on 01-09-2023 Cholesterol.total/Chol esterol in HDL [Mass ratio] 5.7 {ratio} <5.0 [facility] Sodium [Moles/volume] in Ser um or PlasmaOrdered By: Shaikh Dotty on 01-09-2023 Sodium [Moles/Vol] 140 mmol/L 136-145 [facility] Triglyceride [Mass/volume] i n Serum or PlasmaOrdered By: Shaikh Dotty on 01-09-2023 Triglyceride [Mass/Vol] 162 mg/dL 0-149 [facility] Comment on above: TRIG ATP III CLASSIF ICATIONTRIG less than 150 mg/dL NormalTRIG 150-199 mg/dL Borderline highTRIG 200-500 mg/dL High TRIG greater than 500 mg/dL Very highStandard traceable to the Center for Disease Conrtrol and Prevention (CDC) test method. Urea nitrogen [Mass/volume] in Serum or PlasmaOrdered By: Shaikh Dotty on 01-09-2023 Urea nitrogen [Mass/Vol] 34 mg/dL 7- [facility] WBC Auto (Bld) [#/Vol]Ordere d By: Dotyt on 01-09-2023 WBC (Bld) [#/Vol] 5.6 10*3/uL 4.1-10.5 [facility] CNPNon 01-05-2023 CNPN Telephone (IRRFV) -- YESENIA BROUSSARD ([id number]) 1945 M Date Time Provider Department 01/05/23 [...] will need to be scheduled at [facility] [place]. Allergies As of Date: 01/05/2023 (No Known Allergies) Date Reviewed: 11/19/2022 Reviewed by: Elizabeth Freire APRN.LOSS PREVENTION LEADER - Fully Assessed Reason for Visit: Patient Question [9418] Appointment [[id number]] Prescriptions as of 01/05/2023 - [...] Status:Closed by EVELYN CHAMBERLAIN on 01/05/23 Normal [facility] CULTURE URINEon 10-28-2022 CULTURE URINE Culture Observations : LIGHT GROWTH OF MIXED SKIN DANIELLE. NO POTENTIAL PATHOGENS SEEN. Normal [facility] Comment on above: Performed By: #### U RCX #### [facility] [address] [id number] [address] Leighann Santana No Panel InformationOrdered By: Genoveva Nazario on 05-09-2022 Prostate Specific Antigen Total 2.810 ng/mL 0.000-4.00 0 [facility] Basophils Auto (Bld) [#/Vol] Ordered By: Zeinab Justice on 04-23-2022 Basophils (Bld) [#/Vol] 0.0 10*3/uL 0.0-0.2 [facility] Basophils/100 WBC Auto (Bld) Ordered By: Zeinab Justice on 04-23-2022 Basophils/100 WBC (Bld) 0.5 % . [facility] Body fluid albumin measureme nt (mass/volume)Ordered By: Zeinab Justice on 04-23-2022 Albumin (Body fld) [Mass/Vol] 3.6 g/dL 3.2-5.5 [facility] Creatinine and Glomerular fi ltration rate.predicted panel (S/P/Bld)Ordered By: Zeinab Justice on 04-23-2022 Creatinine [Mass/Vol] 1.65 mg/dL 0.64-1.27 [facility] Eosinophils Auto (Bld) [#/Vo l]Ordered By: Zeinab Justice on 04-23-2022 Eosinophils (Bld) [#/Vol] 0.2 10*3/uL 0.0-0.45 [facility] Eosinophils/100 WBC Auto (Bl d)Ordered By: Zeinab Justice on 04-23-2022 Eosinophils/100 WBC (Bld) 3.4 % . [facility] Erythrocyte distribution wid th Auto (RBC) [Ratio]Ordered By: Zeinab Justice on 04-23-2022 Erythrocyte distribution width (RBC) [Ratio] 15.0 % 12.0-14.8 [facility] Estimated glomerular filtrat ion rate (GFR) non- AmericanOrdered By: Zeinab Justice on 04-23-2022 GFR/1.73 sq M.predicted among non-blacks MDRD (S/P/Bld) [Vol rate/Area] 41 mL/Min [facility] Globulin Calc (S) [Mass/Vol] Ordered By: Zeinab Justice on 04-23-2022 Globulin (S) [Mass/Vol] 2.6 g/dL [facility] Hematocrit Auto (Bld) [Volum e fraction]Ordered By: Zeinab Justice on 04-23-2022 Hematocrit (Bld) [Volume fraction] 38.0 % 38.8-50.0 [facility] Hemoglobin [Mass/volume] in BloodOrdered By: Zeinab Justice on 04-23-2022 Hemoglobin (Bld) [Mass/Vol] 12.3 g/dL 13.0-17.0 [facility] Laboratory - Hematology and Cell countsOrdered By: Zeinab Justice on 04-23-2022 Nucleated RBC/100 WBC (Bld) [Ratio] 0.2 % 0-0.5 [facility] Leukocytes [#/volume] in Blo od by Automated countOrdered By: Zeinab Justice on 04-23-2022 WBC (Bld) [#/Vol] 5.3 10*3/uL 4.5-11.0 [facility] Lymphocytes Auto (Bld) [#/Vo l]Ordered By: Zeinab Justice on 04-23-2022 Lymphocytes (Bld) [#/Vol] 0.9 10*3/uL 1.00-4.8 [facility] Lymphocytes/100 WBC Auto (Bl d)Ordered By: Zeinab Justice on 04-23-2022 Lymphocytes/100 WBC (Bld) 17.1 % . [facility] MCH Auto (RBC) [Entitic mass ]Ordered By: Zeinab Justice on 04-23-2022 MCH (RBC) [Entitic mass] 30.6 pg 27.5-35.2 [facility] MCHC Auto (RBC) [Mass/Vol]Or dered By: Zeinab Justice on 04-23-2022 MCHC (RBC) [Mass/Vol] 32.4 g/dL 32.5-35.6 [facility] MCV Auto (RBC) [Entitic vol] Ordered By: Zeinab Justice on 04-23-2022 MCV (RBC) [Entitic vol] 94.4 fL 83.5-101 [facility] Monocytes Auto (Bld) [#/Vol] Ordered By: Zeinab Justice on 04-23-2022 Monocytes (Bld) [#/Vol] 0.6 10*3/uL 0.0-0.8 [facility] Monocytes/100 WBC Auto (Bld) Ordered By: Zeinab Justice on 04-23-2022 Monocytes/100 WBC (Bld) 10.5 % . [facility] Neutrophils Auto (Bld) [#/Vo l]Ordered By: Zeinab Justice on 04-23-2022 Neutrophils (Bld) [#/Vol] 3.6 10*3/uL 1.8-7.7 [facility] Neutrophils/100 WBC Auto (Bl d)Ordered By: Zeinab Justice on 04-23-2022 Neutrophils/100 WBC (Bld) 68.5 % . [facility] No Panel InformationOrdered By: Zeinab Justice on 04-23-2022 Estimated GFR () 49 mL/Min [facility] Comment on above: GFR estimated refere nce range: According to KDOQI guidelines, <60 ml/min/1.73m2 is sufficient to diagnose a patient with chronic kidney disease. Pharmacy Creatinine Clearance (Chem N/A [facility] Platelet mean volume Auto (B ld) [Entitic vol]Ordered By: Zeinab Justice on 04-23-2022 Platelet mean volume (Bld) [Entitic vol] 9.7 fL 6.6-10.1 [facility] Platelets Auto (Bld) [#/Vol] Ordered By: Zeinab Justice on 04-23-2022 Platelets (Bld) [#/Vol] 170 10*3/uL 150-450 [facility] Protein [Mass/volume] in Ser um or PlasmaOrdered By: Zeinab Justice on 04-23-2022 Protein [Mass/Vol] 6.2 g/dL 6.1-7.9 [facility] RBC Auto (Bld) [#/Vol]Ordere d By: Zeinab Justice on 04-23-2022 RBC (Bld) [#/Vol] 4.02 10*6/uL 3.90-5.60 [facility] Serum or plasma alanine cadet otransferase measurement without P-5'-P (enzymatic activiOrdered By: Zeinab Justice on 04-23-2022 ALT No additional P-5'-P [Catalytic activity/Vol] 19 U/L 10-60 [facility] Serum or plasma albumin/glob ulin mass ratioOrdered By: Zeinab Justice on 04-23-2022 Albumin/Globulin [Mass ratio] 1.4 {ratio} [facility] Serum or plasma alkaline crispin sphatase measurement (enzymatic activity/volume)Ordered By: Zeinab Justice on 04-23-2022 ALP [Catalytic activity/Vol] 51 U/L 32-92 [facility] Serum or plasma anion gap de terminationOrdered By: Zeinab Justice on 04-23-2022 Anion gap [Moles/Vol] 13.2 mmol/L 6.0-15.0 [facility] Serum or plasma aspartate am inotransferase measurement (enzymatic activity/volume)Ordered By: Zeinab Justice on 04-23-2022 AST [Catalytic activity/Vol] 18 U/L 10-42 [facility] Serum or plasma calcium jose antonio urement (mass/volume)Ordered By: Zeinab Justice on 04-23-2022 Calcium [Mass/Vol] 8.8 mg/dL 8.2-10.2 [facility] Serum or plasma chloride doreen surement (moles/volume)Ordered By: Zeinab Justice on 04-23-2022 Chloride [Moles/Vol] 104 mmol/L 95-114 [facility] Serum or plasma glucose jose antonio urement (mass/volume)Ordered By: Zeinab Justice on 04-23-2022 Glucose [Mass/Vol] 98 mg/dL 70-100 [facility] Comment on above: ADA recommended refe rence rangeRandom Glucose Reference Range is dependent on time and content of last meal. Glucose of more than 200 mg/dL in a nonstressed, ambulatory subject supports the diagnosis of Diabetes Mellitus. Serum or plasma potassium me asurement (moles/volume)Ordered By: Zeinab Justice on 04-23-2022 Potassium [Moles/Vol] 4.6 mmol/L 3.5-5.1 [facility] Serum or plasma sodium measu rement (moles/volume)Ordered By: Zeinab Justice on 04-23-2022 Sodium [Moles/Vol] 136 mmol/L 136-146 [facility] Serum or plasma total biliru bin measurement (mass/volume)Ordered By: Zeinab Justice on 04-23-2022 Bilirubin [Mass/Vol] 0.5 mg/dL 0.3-1.2 [facility] Serum or plasma total carbon dioxide measurement (moles/volume)Ordered By: Zeinab Justice on 04-23-2022 CO2 [Moles/Vol] 23.4 mmol/L 22.0-30.0 [facility] Serum or plasma urea nitroge n measurement (mass/volume)Ordered By: Zeinab Justice on 04-23-2022 Urea nitrogen [Mass/Vol] 22 mg/dL 02-21 [facility] CBC W Auto Differential pane l (Bld)on 03-27-2022 Basophils (Bld) [#/Vol] <0.11 k/uL [facility] Basophils/100 WBC (Bld) 0.3 % [facility] Differential cell count method Nom (Bld) Auto [facility] Eosinophils (Bld) [#/Vol] 0.25 10*3/uL <0.46 k/uL [facility] Eosinophils/100 WBC (Bld) 3.2 % [facility] Erythrocyte distribution width (RBC) [Ratio] 14.3 % 11.5 - 15.0 % [facility] Hematocrit (Bld) [Volume fraction] 39.3 % 39.0 - 51.0 % [facility] Hemoglobin (Bld) [Mass/Vol] 12.8 g/dL Low 13.0 - 17.0 g/dL [facility] Immature granulocytes (Bld) [#/Vol] 0.03 10*3/uL <0.10 k/uL [facility] Immature granulocytes/100 WBC (Bld) 0.4 % [facility] Lymphocytes (Bld) [#/Vol] 1.53 10*3/uL 1.00 - 4.00 k/uL [facility] Lymphocytes/100 WBC (Bld) 19.8 % [facility] [facility] MCH (RBC) [Entitic mass] 31.4 pg 26.0 - 34.0 pg [facility] MCHC (RBC) [Mass/Vol] 32.6 g/dL 30.5 - 36.0 g/dL [facility] MCV (RBC) [Entitic vol] 96.6 fL 80.0 - 100.0 fL [facility] Monocytes (Bld) [#/Vol] 0.67 10*3/uL <0.87 k/uL [facility] Monocytes/100 WBC (Bld) 8.7 % [facility] Neutrophils (Bld) [#/Vol] 5.21 10*3/uL 1.45 - 7.50 k/uL [facility] Neutrophils/100 WBC (Bld) 67.6 % [facility] Nucleated RBC (Bld) [#/Vol] <0.01 k/uL [facility] Nucleated RBC/100 WBC (Bld) [Ratio] 0.0 /100 WBC [facility] Platelet mean volume (Bld) [Entitic vol] 11.2 fL 9.0 - 12.7 fL [facility] Platelets (Bld) [#/Vol] 183 10*3/uL 150 - 400 k/uL [facility] RBC (Bld) [#/Vol] 4.07 10*6/uL Low 4.20 - 6.00 m/uL [facility] WBC (Bld) [#/Vol] 7.71 10*3/uL 3.70 - 11.00 k/uL [facility] CHEMISTRYOrdered By: SYSTEM SYSTEM on 02-13-2022 Albumin [Mass/Vol] 4.0 g/dL Normal 3.3 - 5.0 gm/dL [facility] Remisol Albumin/Globulin [Mass ratio] 1.2 {ratio} Normal [...] 37 mL/min/1.73 m2 Low >=59mL/min /1.73 m2 [facility] Chem S Globulin [...] - 11.0 E9/L [facility] HemeAutoSS Covid-19 PCR (CVDTB)on SARS-CoV-2 (COVID-19) RNA WENCESLAO+probe Ql (Unsp spec) Not detected Normal NOT DETECTED [facility] Comment on above: Result Comment: This test is not yet approved or cleared by the [place] FDA. When there are no FDA-approved or cleared tests available, and other criteria are met, FDA can make tests available under an emergency access mechanism called an Emergency Use Authorization (EUA). The EUA for this test is supported by the [place] of Health and Human Service's (HHS's) declaration [...] consistent with SARS-CoV-2. Performed By: #### C VDTB #### [facility] [address] [place] [address] Dr. Leighann Santana PTH INTACTon 01-31-2022 PTH, Intact 35 pg/mL Normal 15-65 [facility] Comment on above: Performed By: #### P THINT #### [facility] [address], [place] [address] Dr. Leighann Santana VIT D 25-[place] LABCORPon 2021 Vitamin D, 25-Hydroxy 26.2 ng/mL Critically low 30.0-100.0 [facility] Comment on above: Result Comment: [place] min D deficiency has been defined by the [place] of Medicine and an Endocrine Society practice guideline as a level of serum 25-OH vitamin D less than 20 ng/mL (1,2). The Endocrine Society went on to further define vitamin D insufficiency as a level between 21 and 29 ng/mL (2). 1. IOM ([place] of Medicine). 2010. Dietary reference intakes for calcium and D. [place]: The National Academies Press. 2. Grecia MF, Wayne PALMER, John VILLEGAS, et al. Evaluation, treatment, and prevention of vitamin D deficiency: an Endocrine Society clinical practice guideline. JCEM. 2010; 96(7):1911-30. Performed By: #### V ITADLC #### [facility] [address] [place] [address] [address] Leighann Santana HEMOGRAM AND PLATELon 2021 Hematocrit (Bld) [Volume fraction] 39.3 % Critically low 42.0-54.0 [facility] Comment on above: Performed By: #### H H ####[facility] [address] [place] [id number]. Leighann Santana Hemoglobin (Bld) [Mass/Vol] 12.5 g/dL Critically low 14.0-18.0 [facility] Comment on above: Performed By: #### H H ####[facility] [address] [place] [id number]. Leighann Santana MCH (RBC) [Entitic mass] 30.2 pg Normal 25.9-34.0 [facility] Comment on above: Performed By: #### H H ####[facility] [address] [place] [id number]. Leighann Santana MCHC (RBC) [Mass/Vol] 31.8 g/dL Normal 29.9-35.2 [facility] Comment on above: Performed By: #### H H ####[facility] [address] [place] [address]Dr. Leighann Santana MCV (RBC) [Entitic vol] 94.9 fL Critically high 80.0-94.0 [facility] Comment on above: Performed By: #### H H ####[facility] [address] [place] [address]Dr. Leighann Santana PLT 191 103/ul Normal 150-450 [facility] Comment on above: Performed By: #### H H ####[facility] [address] [place], [place] [address]Dr. Leighann Santana RBC 4.14 106/ul Critically low 4.70-6.10 [facility] Comment on above: Performed By: #### H H ####[facility] [address] [place], [place] [address]Dr. Leighann Santana WBC 7.3 103/ul Normal 4.0-11.0 [facility] Comment on above: Performed By: #### H H ####[facility] [address] [place], [place] [address]Dr. Leighann Santana MAGNESIUMon 01-30-2022 Magnesium [Mass/Vol] 1.9 mg/dL Normal 1.8-2.4 [facility] Comment on above: Performed By: #### R ENAL, MG, URIC ####[facility] [address] [place] [address]Dr. Leighann Santana RENAL FUNCTION PANELon 01-30 Albumin [Mass/Vol] 3.4 g/dL Normal 3.4-5.0 [facility] Comment on above: Performed By: #### R ENAL, MG, URIC ####[facility] [address] [place] [address]Dr. Leighann Santana Calcium [Mass/Vol] 8.7 mg/dL Normal 8.5-10.1 [facility] Comment on above: Performed By: #### R ENAL, MG, URIC ####[facility] [address] [place] [address]Dr. Leighann Santana Chloride [Moles/Vol] 105 mmol/L Normal 98-107 [facility] Comment on above: Performed By: #### R ENAL, MG, URIC ####[facility] [address] [place] [address]Dr. Leighann Santana CO2 [Moles/Vol] 26.5 mmol/L Normal 21.0-32.0 [facility] Comment on above: Performed By: #### R ENAL, MG, URIC ####[facility] [address] [place] [address]Dr. Leighann Santana Creatinine [Mass/Vol] 1.77 mg/dL Critically high 0.70-1.30 [facility] Comment on above: Performed By: #### R ENAL, MG, URIC ####[facility] [address] [place], [place] [address]Dr. Ghadaleon Santana EGFR-AF HUNGARIAN 46 mL/min/1.73m2 Critically low >=60 [facility] Comment on above: Performed By: #### R ENAL, MG, URIC ####[facility] [address] [place], [place] [address]Dr. Leighann Santana EGFR-NON AF HUNGARIAN 38 mL/min/1.73m2 Critically low >=60 [facility] Comment on above: Performed By: #### R ENAL, MG, URIC ####[facility] [address] [place], [place] [address]Dr. Leighann Santana Glucose [Mass/Vol] 136 mg/dL Critically high 74-106 [facility] Comment on above: Performed By: #### R ENAL, MG, URIC ####[facility] [address] [place], [place] [address]Dr. Leighann Santana Phosphate [Mass/Vol] 3.6 mg/dL Normal 2.6-4.7 [facility] Comment on above: Performed By: #### R ENAL, MG, URIC ####[facility] [address] [place], [place] [address]Dr. Leighann Santana Potassium [Moles/Vol] 4.5 mmol/L Normal 3.5-5.1 [facility] Comment on above: Performed By: #### R ENAL, MG, URIC ####[facility] [address] [place] [address]DrSusan Santana Sodium [Moles/Vol] 140 mmol/L Normal 136-145 [facility] Comment on above: Performed By: #### R ENAL, MG, URIC ####[facility] [address] [place] [address]DrSusan Santana Urea nitrogen [Mass/Vol] 25.0 mg/dL Critically high 7.0-18.0 [facility] Comment on above: Performed By: #### R ENAL, MG, URIC ####[facility] [address] [place] [address]Dr. Leighann Santana UA RANDOM W/MICROSCOPICon BACTERIA SMALL Abnormal NONE SEEN [facility] Comment on above: Performed By: #### U AMIC #### [facility] [address] [place] [address] Dr. Leighann Santana Bilirubin Ql (U) Negative Normal NEGATIVE [facility] Comment on above: Performed By: #### U AMIC #### [facility] [address] [place] [address] Dr. Leighann Santana CAST NONE SEEN Normal NONE SEEN [facility] Comment on above: Performed By: #### U AMIC #### [facility] [address] [place] [address] Dr. Leighann Santana Clarity (U) CLEAR Normal CLEAR [facility] Comment on above: Performed By: #### U AMIC #### [facility] [address] [place] [address] [address] Leighann Santana Color (U) LT. YELLOW Normal YELLOW [facility] Comment on above: Performed By: #### U AMIC #### [facility] [address] [place] [address] Dr. Leighann Santana Crystals LM Nom (Urine sed) NONE SEEN Normal NONE SEEN [facility] Comment on above: Performed By: #### U AMIC #### [facility] [address] [place] [address] [address] Leighann Santana Epithelial cells LM Ql (Urine sed) FEW Abnormal NONE SEEN /RARE [facility] Comment on above: Performed By: #### U AMIC #### [facility] [address] [address] [address] Leighann Santana Glucose Ql (U) Negative Normal NEGATIVE [facility] Comment on above: Performed By: #### U AMIC #### [facility] [address] [address] [address] Leighann Santana Hemoglobin Ql (U) TRACE-INTACT Abnormal NEGATIVE [facility] Comment on above: Performed By: #### U AMIC #### [facility] [address] [address] [address] Leighann Santana Ketones Ql (U) Negative Normal NEGATIVE [facility] Comment on above: Performed By: #### U AMIC #### [facility] [address] [place] [address] [address] Leighann Santana LEUKOCYTES MODERATE Abnormal NEGATIVE [facility] Comment on above: Performed By: #### U AMIC #### [facility] [address] [place] [address] [address] Leighann Santana MUCOUS NONE SEEN Normal NONE SEEN [facility] Comment on above: Performed By: #### U AMIC #### [facility] [address] [place] [address] Dr. Leighann Santana Nitrite Ql (U) Positive Abnormal NEGATIVE [facility] Comment on above: Performed By: #### U AMIC #### [facility] [address] [place] [address] Dr. Leighann Santana pH (U) 5.5 [pH] Normal 5-9 [facility] Comment on above: Performed By: #### U AMIC #### [facility] [address] [place] [address] Dr. Leighann Santana RBC 2-5 Abnormal 0-2 [facility] Comment on above: Performed By: #### U AMIC #### [facility] [address] [place] [address] Dr. Leighann Santana SPEC GRAVITY >=1.030 Abnormal 1.005-<=1. 025 [facility] Comment on above: Performed By: #### U AMIC #### [facility] [address] [address] [address] Leighann Santana UA PROTEIN 30 mg/dl Abnormal NEGATIVE/ TRACE [facility] Comment on above: Performed By: #### U AMIC #### [facility] [address] [address] [address] Leighann Santana Urobilinogen Qn (U) 0.2 {Jing'U}/dL Normal 0.2 - 1. 0 [facility] Comment on above: Performed By: #### U AMIC #### [facility] [address] [place] [address] Dr. Leighann Santana WBC 10-20 Abnormal NONE SEEN [facility] Comment on above: Performed By: #### U AMIC #### [facility] [address] [place] [address] Dr. Leighann Santana URIC ACID SERUMon 01-30-2022 Urate [Mass/Vol] 6.5 mg/dL Normal 3.5-7.2 [facility] Comment on above: Performed By: #### R ENAL, MG, URIC ####[facility] [address] [place], [place] [address]Dr. Leighann Santana URINE T PROTEIN CREAT RATIOo n 01-30-2022 Protein (U) [Mass/Vol] 73.2 mg/dL Critically high <=12.0 [facility] Comment on above: Performed By: #### U RTPCR #### [facility] [address] [place] [address] Dr. Leighann Santana UR PROT CREAT RAT 0.42 Normal [facility] Comment on above: Performed By: #### U RTPCR #### [facility] [address] [place] [address] Dr. Leighann Santana URINE CREAT 175.21 mg/dL Normal 20.00-300. 00 [facility] Comment on above: Performed By: #### U RTPCR #### [facility] [address], [place] [address] Dr. Leighann Santana SURGICAL PATH REPORTon 06-11 SURGICAL PATH REPORT [facility] Department of Pathology [address] [place] [address] Name: YESENIA BROUSSARD : 1945 [employer] [id number] Number: Gender: Male Location: [facility] Admit 75 years Attending BARBARA JOHNSTON Age: Provider: Ordering BARBARA JOHNSTON Provider: Consulting: Surgical Pathology Report ACCESSION: COLLECTED DATE/TIME: RECEIVED DATE/TIME: PATHOLOGIST: [id number] 06/06/2021 16:30 EST 06/07/2021 11:15 EST QUINN MAK, [facility] Final Diagnosis Report for THE [place], [place] PROSTATE TISSUE; TURP: - PROSTATIC ACINAR [...] Print Date/ 06/11/2021 16:16 EST Number: Time: [facility] Department of Pathology [address] [place] [address] Name: YESENIA BROUSSARD : 1945 [employer] [id number] Number: Gender: Male Location: [facility] Admit 75 years Attending BARBARA JOHNSTON Age: Provider: Ordering BARBARA JOHNSTON Provider: Consulting: Surgical Pathology Report ACCESSION: COLLECTED DATE/TIME: RECEIVED DATE/TIME: PATHOLOGIST: [id number] 06/06/2021 16:30 EST 06/07/2021 11:15 KATYA CELIS MD Final Diagnosis TUMOR QUANTITATION Tumor Quantitation [...] Print Date/ 06/11/2021 16:16 EST Number: Time: [facility] Department of Pathology [address] [place] [id number] Name: YESENIA BROUSSARD : 1945 [facility] [id number] Number: Gender: Male Location: [facility] Admit 75 years Attending BARBARA JOHNSTON Age: Provider: Ordering BARBARA JOHNSTON Provider: Consulting: Surgical Pathology Report ACCESSION: COLLECTED DATE/TIME: RECEIVED DATE/TIME: PATHOLOGIST: [id number] 06/06/2021 16:30 EST 06/07/2021 11:15 EST KATYA BALL MD Gross Description Labeled prostate tissue. Received in formalin are multiple hemicylindrical segments of khan- pink firm, but pliable tissue. The segments have an aggregate weight of 12 grams and measure in aggregate 7.8 x 6.4 x 2.0 cm. There are calculi present amongst the tissue segment. The specimen is entirely submitted in twelve cassettes. MP/ww 06/07/2021 Tissue pathology report for: [facility], [address] [place] [address], [place] [address]; PATHOLOGY SERVICES PROVIDED BY [email or web address], [employer] (CLIA #[id number]) in cooperation with [facility] at [address] [place] [address] (CLIA #[id number]) Codes CPT CODE: 58455 Print Date06/11/2021 16:16 EST Number: Time: Normal [facility] Comment on above: Performed By: #### [id number] #### [facility] [address] [place] [address] Electrician Bus: Gigi Peters MD Vital Signs Date Time Vital Sign Value Performing Clinician Facility 02-20-2025 11:37-0400 Body height 177.8 cm Brian Avalos MD Work Phone: [facility] 02-20-2025 11:37-0400 Body mass index (BMI) [Ratio] 28.1 kg/m2 Brian Avalos MD Work Phone: [facility] 02-20-2025 11:37-0400 Body weight 89.01 kg Brian Avalos MD Work Phone: [facility] 02-20-2025 11:37-0400 Diastolic blood pressure 78 mm[Hg] Brian Avalos MD Work Phone: [facility] 02-20-2025 11:37-0400 Heart rate 75 /min Brian Avalos MD Work Phone: [facility] 02-20-2025 11:37-0400 Respiratory rate 18 /min Brian Avalos MD Work Phone: [facility] 02-20-2025 11:37-0400 SaO2% (BldA) [Mass fraction] 97 % Brian Avalos MD Work Phone: [facility] 02-20-2025 11:37-0400 Systolic blood pressure 138 mm[Hg] Brian Avalos MD Work Phone: [facility] 01-18-2025 09:27-0400 Body height 177.8 cm SRAVANTHI Nazario MD Work Phone: [facility] 01-18-2025 09:27-0400 Body mass index (BMI) [Ratio] 27.99 kg/m2 SRAVANTHI Nazario MD Work Phone: [facility] 01-18-2025 09:27-0400 Body temperature 98.6 [degF] SRAVANTHI Nazario MD Work Phone: [facility] 01-18-2025 09:27-0400 Body weight 88.5 kg SRAVANTHI Nazario MD Work Phone: [facility] 01-18-2025 09:27-0400 Diastolic blood pressure 75 mm[Hg] SRAVANTHI Nazario MD Work Phone: [facility] 01-18-2025 09:27-0400 Heart rate 92 /min SRAVANTHI Nazario MD Work Phone: [facility] 01-18-2025 09:27-0400 Respiratory rate 16 /min SRAVANTHI Nazario MD Work Phone: [facility] 01-18-2025 09:27-0400 SaO2% (BldA) [Mass fraction] 96 % SRAVANTHI Nazario MD Work Phone: [facility] 01-18-2025 09:27-0400 Systolic blood pressure 150 mm[Hg] SRAVANTHI Nazario MD Work Phone: [facility] 08-30-2024 11:30-0400 Diastolic blood pressure 68 mm[Hg] Jose Hector CARTOON ANIMATOR-LOSS PREVENTION LEADER Work Phone: [facility] 08-30-2024 11:30-0400 Systolic blood pressure 136 mm[Hg] Jose Hector CARTOON ANIMATOR-LOSS PREVENTION LEADER Work Phone: [facility] 08-30-2024 11:16-0400 Body height 177.8 cm Jose Hector CARTOON ANIMATOR-LOSS PREVENTION LEADER Work Phone: [facility] 08-30-2024 11:16-0400 Body mass index (BMI) [Ratio] 28.55 kg/m2 Jose Hector CARTOON ANIMATOR-LOSS PREVENTION LEADER Work Phone: [facility] 08-30-2024 11:16-0400 Body weight 90.27 kg Jose Hector CARTOON ANIMATOR-LOSS PREVENTION LEADER Work Phone: [facility] 08-30-2024 11:16-0400 Heart rate 84 /min Jose Hector CARTOON ANIMATOR-LOSS PREVENTION LEADER Work Phone: [facility] 08-15-2024 10:39-0400 Body height 177.8 cm Brian Avalos MD Work Phone: [facility] 08-15-2024 10:39-0400 Body mass index (BMI) [Ratio] 28.4 kg/m2 Brian Avalos MD Work Phone: [facility] 08-15-2024 10:39-0400 Body temperature 97.8 [degF] Brian Avalos MD Work Phone: [facility] 08-15-2024 10:39-0400 Body weight 89.92 kg Brian Avalos MD Work Phone: [facility] 08-15-2024 10:39-0400 Diastolic blood pressure 74 mm[Hg] Brian Avalos MD Work Phone: [facility] 08-15-2024 10:39-0400 Heart rate 85 /min Brian Avalos MD Work Phone: [facility] 08-15-2024 10:39-0400 Respiratory rate 16 /min Brian Avalos MD Work Phone: [facility] 08-15-2024 10:39-0400 SaO2% (BldA) [Mass fraction] 98 % Brian Avalos MD Work Phone: [facility] 08-15-2024 10:39-0400 Systolic blood pressure 123 mm[Hg] Brian Avalos MD Work Phone: [facility] 07-14-2024 11:14-0500 Body height 177.8 cm Brian Avalos MD Work Phone: [facility] 07-14-2024 11:14-0500 Body temperature 98 [degF] Brian Avalos MD Work Phone: [facility] 07-14-2024 11:14-0500 Body weight 89 kg Brian Avalos MD Work Phone: [facility] 07-14-2024 11:14-0500 Diastolic blood pressure 90 mm[Hg] Brian Avalos MD Work Phone: [facility] 07-14-2024 11:14-0500 Heart rate 101 /min Brian Avalos MD Work Phone: [facility] 07-14-2024 11:14-0500 Respiratory rate 18 /min Brian Avalos MD Work Phone: [facility] 07-14-2024 11:14-0500 SaO2% (BldA) [Mass fraction] 96 % Brian Avalos MD Work Phone: [facility] 07-14-2024 11:14-0500 Systolic blood pressure 178 mm[Hg] Brian Avalos MD Work Phone: [facility] 07-13-2024 13:16-0500 Body height 177.8 cm Nasir Ward NP Work Phone: [facility] 07-13-2024 13:16-0500 Body mass index (BMI) [Ratio] 28.84 kg/m2 Nasir Ward DEBEADER Work Phone: [facility] 07-13-2024 13:16-0500 Body temperature 97.7 [degF] Nasir Ward DEBEADER Work Phone: [facility] 07-13-2024 13:16-0500 Body weight 91.17 kg Nasir Ward DEBEADER Work Phone: [facility] 07-13-2024 13:16-0500 Diastolic blood pressure 70 mm[Hg] Nasir Ward DEBEADER Work Phone: [facility] 07-13-2024 13:16-0500 Heart rate 94 /min Nasir Ward DEBEADER Work Phone: [facility] 07-13-2024 13:16-0500 Respiratory rate 16 /min Nasir Ward DEBEADER Work Phone: [facility] 07-13-2024 13:16-0500 SaO2% (BldA) [Mass fraction] 94 % Nasir Ward DEBEADER Work Phone: [facility] 07-13-2024 13:16-0500 Systolic blood pressure 136 mm[Hg] Nasir Ward DEBEADER Work Phone: [facility] 04-21-2024 11:12-0500 Body height 177.8 cm Nasir Ward DEBEADER Work Phone: [facility] 04-21-2024 11:12-0500 Body mass index (BMI) [Ratio] 27.86 kg/m2 Nasir Ward DEBEADER Work Phone: [facility] 04-21-2024 11:12-0500 Body temperature 96.3 [degF] Nasir Ward DEBEADER Work Phone: [facility] 04-21-2024 11:12-0500 Body weight 88.09 kg Nasir Ward DEBEADER Work Phone: [facility] 04-21-2024 11:12-0500 Diastolic blood pressure 68 mm[Hg] Nasir Ward DEBEADER Work Phone: [facility] 04-21-2024 11:12-0500 Heart rate 93 /min Nasri Ward DEBEADER Work Phone: [facility] 04-21-2024 11:12-0500 Respiratory rate 16 /min Nasir Ward DEBEADER Work Phone: [facility] 04-21-2024 11:12-0500 SaO2% (BldA) [Mass fraction] 93 % Nasir Ward DEBEADER Work Phone: [facility] 04-21-2024 11:12-0500 Systolic blood pressure 128 mm[Hg] Nasir Ward DEBEADER Work Phone: [facility] 04-18-2024 11:31-0500 Blood Pressure Location Barbara JOHNSTON [facility] 04-18-2024 11:31-0500 Body temperature 98.6 [degF] Barbara JOHNSTON [facility] 04-18-2024 11:31-0500 Diastolic blood pressure 85 mm[Hg] Barbara JOHNSTON [facility] 04-18-2024 11:31-0500 Heart rate 95 /min Barbaraterry JOHNSTON [facility] 04-18-2024 11:31-0500 Respiratory rate 16 /min Barbara JOHNSTON [facility] 04-18-2024 11:31-0500 Systolic blood pressure 122 mm[Hg] Barbara JOHNSTON [facility] 02-29-2024 08:28-0400 Body height 177.8 cm PHYSICIAN NO [facility] 02-29-2024 08:28-0400 Body mass index (BMI) [Ratio] 27.4 kg/m2 PHYSICIAN NO [facility] 02-29-2024 08:28-0400 Body temperature 97.8 [degF] PHYSICIAN NO [facility] 02-29-2024 08:28-0400 Body weight 86.86 kg PHYSICIAN NO [facility] 02-29-2024 08:28-0400 Diastolic blood pressure 84 mm[Hg] PHYSICIAN NO [facility] 02-29-2024 08:28-0400 Heart rate 98 /min PHYSICIAN NO [facility] 02-29-2024 08:28-0400 Respiratory rate 16 /min PHYSICIAN NO [facility] 02-29-2024 08:28-0400 SaO2% (BldA) [Mass fraction] 99 % PHYSICIAN NO [facility] 02-29-2024 08:28-0400 Systolic blood pressure 129 mm[Hg] PHYSICIAN NO [facility] 01-20-2024 17:46-0400 Body height 177.8 cm Nasir Gascapatrick DEBEADER Work Phone: [facility] 01-20-2024 17:46-0400 Body mass index (BMI) [Ratio] 27.55 kg/m2 Nasir Ward DEBEADER Work Phone: [facility] 01-20-2024 17:46-0400 Body temperature 98.49 [degF] Nasir Ward DEBEADER Work Phone: [facility] 01-20-2024 17:46-0400 Body weight 87.09 kg Nasir Ward DEBEADER Work Phone: [facility] 01-20-2024 17:46-0400 Diastolic blood pressure 70 mm[Hg] Nasir Ward DEBEADER Work Phone: [facility] 01-20-2024 17:46-0400 Heart rate 76 /min Nasir Duttonk DEBEADER Work Phone: [facility] Comment on above: 97% O2 01-20-2024 17:46-0400 Systolic blood pressure 130 mm[Hg] Nasir Lopeztrick DEBEADER Work Phone: [facility] 12-15-2023 14:33-0400 Body mass index (BMI) [Ratio] 27.49 kg/m2 SRAVANTHI Nazario MD Work Phone: [facility] 12-15-2023 14:33-0400 Body temperature 97.81 [degF] SRAVANTHI Nazario MD Work Phone: [facility] 12-15-2023 14:33-0400 Body weight 86.9 kg SRAVANTHI Nazario MD Work Phone: [facility] 12-15-2023 14:33-0400 Diastolic blood pressure 76 mm[Hg] SRAVANTHI Nazario MD Work Phone: [facility] 12-15-2023 14:33-0400 Heart rate 86 /min SRAVANTHI Nazario MD Work Phone: [facility] 12-15-2023 14:33-0400 Respiratory rate 16 /min SRAVANTHI Nazario MD Work Phone: [facility] 12-15-2023 14:33-0400 SaO2% (BldA) [Mass fraction] 98 % SRAVANTHI Nazario MD Work Phone: [facility] 12-15-2023 14:33-0400 Systolic blood pressure 137 mm[Hg] SRAVANTHI Nazario MD Work Phone: [facility] 10-15-2023 09:17-0400 Body height 177.8 cm MD Shaikh Storm Work Phone: [facility] 10-15-2023 09:17-0400 Body mass index (BMI) [Ratio] 28.1 kg/m2 MD Shaikh Storm Work Phone: [facility] 10-15-2023 09:17-0400 Body temperature 97.8 [degF] MD Shaikh Storm Work Phone: [facility] 10-15-2023 09:17-0400 Body weight 89 kg MD Shaikh Storm Work Phone: [facility] 10-15-2023 09:17-0400 Diastolic blood pressure 86 mm[Hg] MD Shaikh Storm Work Phone: [facility] 10-15-2023 09:17-0400 Heart rate 67 /min MD Shaikh Storm Work Phone: [facility] 10-15-2023 09:17-0400 Respiratory rate 16 /min MD Shaikh Storm Work Phone: [facility] 10-15-2023 09:17-0400 SaO2% (BldA) [Mass fraction] 94 % MD Shaikh Storm Work Phone: [facility] 10-15-2023 09:17-0400 Systolic blood pressure 128 mm[Hg] MD Shaikh Storm Work Phone: [facility] 09-18-2023 10:50-0400 Blood Pressure Location Barbara JOHNSTON [facility] 09-18-2023 10:50-0400 Diastolic blood pressure 81 mm[Hg] Barbara JOHNSTON [facility] 09-18-2023 10:50-0400 Heart rate 76 /min Barbara JOHNSTON [facility] 09-18-2023 10:50-0400 Respiratory rate 16 /min Barbara JOHNSTON [facility] 09-18-2023 10:50-0400 Systolic blood pressure 128 mm[Hg] Barbara JOHNSTON [facility] 08-18-2023 12:12-0400 Diastolic blood pressure 60 mm[Hg] Chaim Grayson DO Work Phone: [facility] 08-18-2023 12:12-0400 Systolic blood pressure 138 mm[Hg] Chaim Grayson DO Work Phone: [facility] 08-18-2023 11:52-0400 Body height 177.8 cm Chaim Grayson DO Work Phone: [facility] 08-18-2023 11:52-0400 Body mass index (BMI) [Ratio] 28.12 kg/m2 Chaim Grayson DO Work Phone: [facility] 08-18-2023 11:52-0400 Body weight 88.91 kg Chaim Grayson DO Work Phone: [facility] 08-18-2023 11:52-0400 Heart rate 80 /min Chaim Grayson DO Work Phone: [facility] 06-18-2023 13:11-0500 Diastolic blood pressure 94 mm[Hg] [address] 06-18-2023 13:11-0500 Heart rate 86 /min [address] 06-18-2023 13:11-0500 Systolic blood pressure 154 mm[Hg] [address] 06-12-2023 11:11-0500 Body height 177.8 cm Kodi Reynolds MD Work Phone: [facility] 06-12-2023 11:11-0500 Body weight 88.91 kg Kodi Reynolds MD Work Phone: [facility] 06-04-2023 10:19-0500 Diastolic blood pressure 84 mm[Hg] Chaim Grayson DO Work Phone: [facility] 06-04-2023 10:19-0500 Systolic blood pressure 154 mm[Hg] Chaim Grayson DO Work Phone: [facility] 06-04-2023 10:18-0500 Body height 177.8 cm Chaim Grayson DO Work Phone: [facility] 06-04-2023 10:18-0500 Body mass index (BMI) [Ratio] 28.41 kg/m2 Chaim Grayson DO Work Phone: [facility] 06-04-2023 10:18-0500 Body weight 89.81 kg Chaim Grayson DO Work Phone: [facility] 06-04-2023 10:18-0500 Heart rate 83 /min Chaim Grayson DO Work Phone: [facility] 04-21-2023 09:05-0500 Diastolic blood pressure 86 mm[Hg] CLAIRE BRITNI [facility] 04-21-2023 09:05-0500 Heart rate 76 /min CLAIRE BRITNI [facility] 04-21-2023 09:05-0500 Mean blood pressure 108 mm[Hg] CLAIRE BRITNI [facility] 04-21-2023 09:05-0500 Systolic blood pressure 151 mm[Hg] CLAIRE BRITNI [facility] 04-21-2023 08:20-0500 Blood Pressure Location CLAIRE BRITNI [facility] 04-21-2023 08:20-0500 Diastolic blood pressure 84 mm[Hg] CLAIRE RBITNI [facility] 04-21-2023 08:20-0500 Heart rate 79 /min CLAIRE BRITNI [facility] 04-21-2023 08:20-0500 Respiratory rate 16 /min CLAIRE JAMES [facility] 04-21-2023 08:20-0500 Systolic blood pressure 153 mm[Hg] CLAIRE JAMES [facility] 04-16-2023 11:30-0500 Body height 177.8 cm Jose Martin Mchugh Other [facility] Other 04-16-2023 11:30-0500 Body mass index (BMI) [Ratio] 28.26 kg/m2 Jose Martin Mchugh Other [facility] Other 04-16-2023 11:30-0500 Body temperature 97.8 [degF] Jose Martin Mchugh Other [facility] Other 04-16-2023 11:30-0500 Body weight 89.36 kg Jose Martin Mchugh Other [facility] Other 04-16-2023 11:30-0500 Diastolic blood pressure 62 mm[Hg] Jose Martin Mchugh Other [facility] Other 04-16-2023 11:30-0500 SaO2% (BldA) [Mass fraction] 97 % Jose Martin Mchugh Other [facility] Other 04-16-2023 11:30-0500 Systolic blood pressure 120 mm[Hg] Jose Martin Mchugh Other [facility] Other 03-23-2023 12:55-0400 Diastolic blood pressure 78 mm[Hg] MD Shaikh Storm Work Phone: [facility] 03-23-2023 12:55-0400 Heart rate 54 /min MD Shaikh Storm Work Phone: [facility] 03-23-2023 12:55-0400 Respiratory rate 16 /min MD Shaikh Storm Work Phone: [facility] 03-23-2023 12:55-0400 SaO2% (BldA) [Mass fraction] 95 % MD Shaikh Storm Work Phone: [facility] 03-23-2023 12:55-0400 Systolic blood pressure 145 mm[Hg] MD Shaikh Storm Work Phone: [facility] 03-23-2023 09:48-0400 Inhaled oxygen flow rate 4 L/min MD Shaikh Storm Work Phone: [facility] 03-23-2023 07:22-0400 Body height 177.8 cm MD Shaikh Storm Work Phone: [facility] 03-23-2023 07:22-0400 Body weight 89.35 kg MD Shaikh Storm Work Phone: [facility] 03-12-2023 08:30-0400 Body height 177.8 cm Jose Martin Mchugh Other [facility] Other 03-12-2023 08:30-0400 Body mass index (BMI) [Ratio] 28.26 kg/m2 Jose Martin Mchugh Other [facility] Other 03-12-2023 08:30-0400 Body temperature 97.5 [degF] Jose Martin Mchugh Other [facility] Other 03-12-2023 08:30-0400 Body weight 89.36 kg Jose Martin Rosariozaria Other [facility] Other 03-12-2023 08:30-0400 Diastolic blood pressure 68 mm[Hg] Jose Martin Rosariozaira Other [facility] Other 03-12-2023 08:30-0400 SaO2% (BldA) [Mass fraction] 97 % Jose Martin Rosariozaira Other [facility] Other 03-12-2023 08:30-0400 Systolic blood pressure 128 mm[Hg] Jose Martin Jeison Other [facility] Other 02-20-2023 11:15-0400 Diastolic blood pressure 63 mm[Hg] MD Shaikh Storm Work Phone: [facility] 02-20-2023 11:15-0400 Heart rate 45 /min MD Shaikh Storm Work Phone: [facility] 02-20-2023 11:15-0400 Respiratory rate 18 /min MD Shaikh Storm Work Phone: [facility] 02-20-2023 11:15-0400 SaO2% (BldA) [Mass fraction] 95 % MD Shaikh Storm Work Phone: [facility] 02-20-2023 11:15-0400 Systolic blood pressure 123 mm[Hg] MD Shaikh Storm Work Phone: [facility] 02-20-2023 11:07-0400 Body height 177.8 cm MD Shaikh Storm Work Phone: [facility] 02-20-2023 11:07-0400 Body mass index (BMI) [Ratio] 29 kg/m2 MD Shaikh Storm Work Phone: [facility] 02-20-2023 11:07-0400 Body weight 92 kg MD Shaikh Storm Work Phone: [facility] 02-20-2023 07:53-0400 Body temperature 98 [degF] MD Shaikh Storm Work Phone: [facility] 02-18-2023 11:30-0400 Body height 177.8 cm Bonnie Tan Other [facility] Other 02-18-2023 11:30-0400 Body mass index (BMI) [Ratio] 29.12 kg/m2 Bonnie Tan Other [facility] Other 02-18-2023 11:30-0400 Body temperature 97.8 [degF] Bonnie Tan Other [facility] Other 02-18-2023 11:30-0400 Body weight 92.08 kg Bonnie Tan Other [facility] Other 02-18-2023 11:30-0400 Diastolic blood pressure 76 mm[Hg] Bonnie Tan Other [facility] Other 02-18-2023 11:30-0400 SaO2% (BldA) [Mass fraction] 97 % Bonnie Tan Other [facility] Other 02-18-2023 11:30-0400 Systolic blood pressure 126 mm[Hg] Bonnie Tan Other [facility] Other 02-11-2023 14:48-0400 Blood Pressure Location CLAIRE JAMES [facility] 02-11-2023 14:48-0400 Diastolic blood pressure 74 mm[Hg] CLAIRE BRITNI [facility] 02-11-2023 14:48-0400 Heart rate 80 /min CLAIRE BRITNI [facility] 02-11-2023 14:48-0400 Respiratory rate 16 /min CLAIRE BRITNI [facility] 02-11-2023 14:48-0400 Systolic blood pressure 130 mm[Hg] CLAIRE BRITNI [facility] 01-19-2023 13:04-0400 Body weight 92.63 kg Jose Mendis DO Work Phone: [facility] 01-19-2023 13:04-0400 Diastolic blood pressure 58 mm[Hg] Jose Mendis DO Work Phone: [facility] 01-19-2023 13:04-0400 Heart rate 48 /min Jose Mendis DO Work Phone: [facility] 01-19-2023 13:04-0400 Systolic blood pressure 122 mm[Hg] Jose Mendis DO Work Phone: [facility] 12-03-2022 14:57-0400 Blood Pressure Location CLAIRE BRITNI [facility] 12-03-2022 14:57-0400 Diastolic blood pressure 76 mm[Hg] CLAIRE BRITNI [facility] 12-03-2022 14:57-0400 Heart rate 69 /min CLAIRE BRITNI [facility] 12-03-2022 14:57-0400 Respiratory rate 16 /min CLAIRE BRITNI [facility] 12-03-2022 14:57-0400 Systolic blood pressure 138 mm[Hg] CLAIRE STEPHENSRY [facility] 11-18-2022 13:29-0400 Body temperature 98.71 [degF] SRAVANTHI Nazario MD Work Phone: [facility] 11-18-2022 13:29-0400 Body weight 92.53 kg SRAVANTHI Nazario MD Work Phone: [facility] 11-18-2022 13:29-0400 Diastolic blood pressure 54 mm[Hg] SRAVANTHI Nazario MD Work Phone: [facility] 11-18-2022 13:29-0400 Heart rate 56 /min SRAVANTHI Nazario MD Work Phone: [facility] 11-18-2022 13:29-0400 Respiratory rate 18 /min SRAVANTHI Nazario MD Work Phone: [facility] 11-18-2022 13:29-0400 SaO2% (BldA) [Mass fraction] 96 % SRAVANTHI Nazario MD Work Phone: [facility] 11-18-2022 13:29-0400 Systolic blood pressure 112 mm[Hg] SRAVANTHI Nazario MD Work Phone: [facility] 04-21-2022 15:30-0500 Body temperature 96.69 [degF] SRAVANTHI Nazario MD Work Phone: [facility] 04-21-2022 15:30-0500 Body weight 95.71 kg SRAVANTHI Nazario MD Work Phone: [facility] 04-21-2022 15:30-0500 Diastolic blood pressure 70 mm[Hg] SRAVANTHI Nazario MD Work Phone: [facility] 04-21-2022 15:30-0500 Heart rate 58 /min SRAVANTHI Nazario MD Work Phone: [facility] 04-21-2022 15:30-0500 Respiratory rate 18 /min SRAVANTHI Nazario MD Work Phone: [facility] 04-21-2022 15:30-0500 SaO2% (BldA) [Mass fraction] 98 % SRAVANTHI Nazario MD Work Phone: [facility] 04-21-2022 15:30-0500 Systolic blood pressure 154 mm[Hg] SRAVANTHI Nazario MD Work Phone: [facility] 04-14-2022 15:04-0500 Body temperature 97.59 [degF] SRAVANTHI Nazario MD Work Phone: [facility] 04-14-2022 15:04-0500 Body weight 93.44 kg SRAVANTHI Nazario MD Work Phone: [facility] 04-14-2022 15:04-0500 Diastolic blood pressure 68 mm[Hg] SRAVANTHI Nazario MD Work Phone: [facility] 04-14-2022 15:04-0500 Heart rate 64 /min SRAVANTHI Nazario MD Work Phone: [facility] 04-14-2022 15:04-0500 Respiratory rate 16 /min SRAVANTHI Nazario MD Work Phone: [facility] 04-14-2022 15:04-0500 SaO2% (BldA) [Mass fraction] 97 % SRAVANTHI Nazario MD Work Phone: [facility] 04-14-2022 15:04-0500 Systolic blood pressure 128 mm[Hg] SRAVANTHI Nazario MD Work Phone: [facility] 04-07-2022 11:01-0500 Body temperature 97.39 [degF] SRAVANTHI Nazario MD Work Phone: [facility] 04-07-2022 11:01-0500 Body weight 94.35 kg SRAVANTHI Nazario MD Work Phone: [facility] 04-07-2022 11:01-0500 Diastolic blood pressure 63 mm[Hg] SRAVANTHI Nazario MD Work Phone: [facility] 04-07-2022 11:01-0500 Heart rate 55 /min SRAVANTHI Nazario MD Work Phone: [facility] 04-07-2022 11:01-0500 Respiratory rate 18 /min SRAVANTHI Nazario MD Work Phone: [facility] 04-07-2022 11:01-0500 SaO2% (BldA) [Mass fraction] 98 % SRAVANTHI Nazario MD Work Phone: [facility] 04-07-2022 11:01-0500 Systolic blood pressure 138 mm[Hg] SRAVANTHI Nazario MD Work Phone: [facility] 03-31-2022 15:33-0400 Body temperature 96.69 [degF] SRAVANTHI Nazario MD Work Phone: [facility] 03-31-2022 15:33-0400 Body weight 94.8 kg SRAVANTHI Nazario MD Work Phone: [facility] 03-31-2022 15:33-0400 Diastolic blood pressure 72 mm[Hg] SRAVANTHI Nazario MD Work Phone: [facility] 03-31-2022 15:33-0400 Heart rate 54 /min SRAVANTHI Nazario MD Work Phone: [facility] 03-31-2022 15:33-0400 Respiratory rate 18 /min SRAVANTHI Nazario MD Work Phone: [facility] 03-31-2022 15:33-0400 SaO2% (BldA) [Mass fraction] 97 % SRAVANTHI Nazario MD Work Phone: [facility] 03-31-2022 15:33-0400 Systolic blood pressure 145 mm[Hg] SRAVANTHI Nazario MD Work Phone: [facility] 03-24-2022 16:03-0400 Body temperature 98.01 [degF] SRAVANTHI Nazario MD Work Phone: [facility] 03-24-2022 16:03-0400 Body weight 93.44 kg SRAVANTHI Nazario MD Work Phone: [facility] 03-24-2022 16:03-0400 Diastolic blood pressure 65 mm[Hg] SRAVANTHI Nazario MD Work Phone: [facility] 03-24-2022 16:03-0400 Heart rate 50 /min SRAVANTHI Nazario MD Work Phone: [facility] 03-24-2022 16:03-0400 Respiratory rate 16 /min SRAVANTHI Nazario MD Work Phone: [facility] 03-24-2022 16:03-0400 SaO2% (BldA) [Mass fraction] 100 % SRAVANTHI Nazario MD Work Phone: [facility] 03-24-2022 16:03-0400 Systolic blood pressure 141 mm[Hg] SRAVANTHI Nazario MD Work Phone: [facility] 03-18-2022 11:52-0400 Body temperature 97.9 [degF] SRAVANTHI Nazario MD Work Phone: [facility] 03-18-2022 11:52-0400 Body weight 93.44 kg SRAVANTHI Nazario MD Work Phone: [facility] 03-18-2022 11:52-0400 Diastolic blood pressure 71 mm[Hg] SRAVANTHI Nazario MD Work Phone: [facility] 03-18-2022 11:52-0400 Heart rate 56 /min SRAVANTHI Nazario MD Work Phone: [facility] 03-18-2022 11:52-0400 Respiratory rate 16 /min SRAVANTHI Nazario MD Work Phone: [facility] 03-18-2022 11:52-0400 SaO2% (BldA) [Mass fraction] 96 % SRAVANTHI Nazario MD Work Phone: [facility] 03-18-2022 11:52-0400 Systolic blood pressure 115 mm[Hg] SRAVANTHI Nazario MD Work Phone: [facility] 12-10-2021 09:19-0400 Body height 175.9 cm SRAVANTHI Nazario MD Work Phone: [facility] 12-10-2021 09:19-0400 Body temperature 98.71 [degF] SRAVANTHI Nazario MD Work Phone: [facility] 12-10-2021 09:19-0400 Body weight 94.35 kg SRAVANTHI Nazario MD Work Phone: [facility] 12-10-2021 09:19-0400 Diastolic blood pressure 68 mm[Hg] SRAVANTHI Nazario MD Work Phone: [facility] 12-10-2021 09:19-0400 Heart rate 51 /min SRAVANTHI Nazario MD Work Phone: [facility] 12-10-2021 09:19-0400 Respiratory rate 16 /min SRAVANTHI Nazario MD Work Phone: [facility] 12-10-2021 09:19-0400 SaO2% (BldA) [Mass fraction] 97 % SRAVANTHI Nazario MD Work Phone: [facility] 12-10-2021 09:19-0400 Systolic blood pressure 116 mm[Hg] SRAVANTHI Nazario MD Work Phone: [facility] 11-04-2021 09:48-0400 Blood Pressure Location Barbara JOHNSTON [facility] 11-04-2021 09:48-0400 Diastolic blood pressure 61 mm[Hg] Barbara JOHNSTON [facility] 11-04-2021 09:48-0400 Heart rate 52 /min Barbara JOHNSTON [facility] 11-04-2021 09:48-0400 Systolic blood pressure 123 mm[Hg] Barbara JOHNSTON [facility] 10-24-2021 16:40-0400 Body height 177.8 cm Theo Vivian Other [facility] Other 10-24-2021 16:40-0400 Body mass index (BMI) [Ratio] 29.01 kg/m2 Theo Vivian Other [facility] Other 10-24-2021 16:40-0400 Body temperature 98 [degF] Theo Vivian Other [facility] Other 10-24-2021 16:40-0400 Body weight 91.72 kg Theo Vivian Other [facility] Other 10-24-2021 16:40-0400 Diastolic blood pressure 72 mm[Hg] Theo Vivian Other [facility] Other 10-24-2021 16:40-0400 Respiratory rate 18 /min Theo Vivian Other [facility] Other 10-24-2021 16:40-0400 SaO2% (BldA) [Mass fraction] 96 % Theo Vivian Other [facility] Other 10-24-2021 16:40-0400 Systolic blood pressure 130 mm[Hg] Theo Vivian Other [facility] Other Encounters Encounter Date Encounter Type Care Provider Facility Start: 04-03-2025 ambulatory Barbara Avila ty:TRISTNI Arias Start: 03-29-2025 ambulatory Barbara Gonzalesi ty:[facility] Start: 03-23-2025 ambulatory Barbara Avila ty:[id number] Start: 03-07-2025 End: 03-07-2025 ambulatory Barbara JOHNSTON Facility:[facility] Start: 03-01-2025 End: 03-01-2025 ambulatory RAY [facility] Start: 02-21-2025 End: 02-21-2025 Clinisync Result Encounter Generic External Data Provider [facility] External Department Unsolicited Start: 02-21-2025 End: 02-21-2025 Clinisync Result Encounter Generic External Data Provider [facility] External Department Unsolicited Start: 02-20-2025 End: 02-20-2025 ambulatory Brian Avalos MD Work Phone: [facility] Work Phone: Start: 02-20-2025 End: 02-20-2025 Patient encounter procedure Theo Thakkar MD -[facility] Work Phone: Start: 02-13-2025 End: 02-13-2025 Clinisync Result Encounter Generic External Data Provider [facility] External Department Unsolicited Start: 02-13-2025 End: 02-13-2025 Clinisync Result Encounter Generic External Data Provider [facility] External Department Unsolicited Start: 02-13-2025 Non-patient / Non-visit Theo Thakkar MD -[facility] Work Phone: Start: 01-18-2025 End: 01-18-2025 Office outpatient visit 15 minutes Genoveva Nazario MD Work Phone: Radiation Oncology Comment on above: Cancer of prostate w /med recur risk (T2b-c or Nicola 7 or PSA 10-20) (HCC) (Primary Dx) Start: 01-18-2025 End: 01-18-2025 ambulatory Genoveva NAZARIO Facility:[facility] Start: 01-12-2025 End: 01-12-2025 Clinisync Result Encounter Generic External Data Provider [facility] External Department Unsolicited Start: 01-12-2025 End: 01-12-2025 Clinisync Result Encounter Generic External Data Provider [facility] External Department Unsolicited Start: 01-12-2025 End: 01-12-2025 ambulatory Genoveva NAZARIO Facility:[facility] Start: 09-12-2024 End: 09-12-2024 Eliseo Avalos MD Work Phone: [facility] Comment on above: Primary hypertension ([facility]/HCC) Start: 08-30-2024 End: 08-30-2024 ambulatory [facility] Amb[facility] Start: 08-30-2024 End: 08-30-2024 Office outpatient visit 15 minutes [facility] [employer]IMATOR[employer] PREVENTION LEADER Work Phone: [facility] Comment on above: Mixed hyperlipidemia (Primary Dx); Bilateral carotid artery disease, unspecified type; Hypertension, unspecified type; BMI 28.0-28.9,adult; Smoker; Prostate cancer (Multi); Chronic kidney disease, stage 3b (Multi); ASHD (arteriosclerotic heart disease); PVD (peripheral vascular disease) ([facility]-HCC) Start: 08-29-2024 End: 08-30-2024 ambulatory CLAIRE JAMES Facility:[facility] Start: 08-29-2024 End: 08-30-2024 Lab Drop off CLAIRE JAMES [facility] Start: 08-29-2024 End: 08-29-2024 ambulatory CLAIRE JAMES Facility:[facility] Start: 08-22-2024 End: 08-23-2024 ambulatory Cherie X Orzech Facility:[facility] Start: 08-22-2024 End: 08-23-2024 Lab Drop off Cherie X Orzech [facility] Start: 08-22-2024 End: 08-22-2024 ambulatory Barbara JOHNSTON Facility:[facility] Start: 08-18-2024 End: 08-18-2024 ambulatory NICKOLAS TY [facility] Start: 08-15-2024 End: 08-15-2024 ambulatory Brian Avalos MD Work Phone: [facility] Work Phone: Start: 08-15-2024 End: 08-15-2024 Patient encounter procedure Brian Avalos MD Work Phone: [facility] [place] Work Phone: Start: 08-10-2024 End: 08-10-2024 Patient encounter procedure Brian Avalos MD Work Phone: [facility] [place] Work Phone: Start: 08-10-2024 End: 08-10-2024 ambulatory Brian Avalos MD Work Phone: [facility] Work Phone: Start: 08-08-2024 End: 08-08-2024 Lab Drop off CLAIRE JAMES [facility] Start: 08-08-2024 End: 08-08-2024 ambulatory CLAIRE JAMES Facility:[facility] Start: 07-14-2024 End: 07-14-2024 Emergency department patient visit Brian Avalos MD Work Phone: [facility] Work Phone: Start: 07-13-2024 End: 07-13-2024 Bamboo flowsheet Nasir Ward DEBEADER Work Phone: [facility] Start: 07-13-2024 End: 07-13-2024 Bamboo flowsheet Nasir Ward DEBEADER Work Phone: [facility] Start: 07-13-2024 End: 07-13-2024 Office outpatient visit 15 minutes Nasir Lopeztrick DEBEADER Work Phone: [facility] Comment on above: Stage 3a chronic kid joe disease (HCC) (CMS/HCC) (Primary Dx); Lumbar stenosis with neurogenic claudication; Mixed hyperlipidemia (CMS/HCC); Primary hypertension (CMS/HCC) Start: 07-13-2024 End: 07-13-2024 ambulatory NASIR WARD Not Available Start: 04-21-2024 End: 04-21-2024 Bamboo flowsheet Nasir Ward DEBEADER Work Phone: [facility] Start: 04-21-2024 End: 04-21-2024 Bamboo flowsheet Nasir Ward DEBEADER Work Phone: [facility] Start: 04-21-2024 End: 04-21-2024 Office outpatient visit 15 minutes Nasir Carterzpatrick DEBEADER Work Phone: [facility] Comment on above: Mixed hyperlipidemia (CMS/HCC) (Primary Dx); Primary hypertension (CMS/HCC); Stage 3a chronic kidney disease (HCC) (CMS/HCC) Start: 04-21-2024 End: 04-21-2024 ambulatory NASIR WARD Not Available Start: 04-18-2024 End: 04-18-2024 ambulatory Barbara JOHNSTON Facility:[facility] Start: 04-18-2024 End: 04-18-2024 Patient encounter procedure Barbara JOHNSTON [facility] Start: 04-07-2024 End: 04-07-2024 Lab Drop off Karime Gunderson [facility] Start: 04-07-2024 End: 04-07-2024 ambulatory Karime Gunderosn Facility:[facility] Start: 04-07-2024 End: 04-07-2024 Patient encounter procedure Karime Arzateea [facility] Start: 02-29-2024 End: 02-29-2024 ambulatory PHYSICIAN NO [facility] Work Phone: Start: 02-29-2024 End: 02-29-2024 Patient encounter procedure PHYSICIAN NO [facility] Ne[facility] [place] Work Phone: Start: 02-25-2024 End: 02-25-2024 ambulatory PHYSICIAN NO [facility] Work Phone: Start: 02-25-2024 End: 02-25-2024 Patient encounter procedure PHYSICIAN NO [facility] [place] Work Phone: Start: 02-18-2024 End: 02-18-2024 Refill Sugar Wellington MA [facility] Comment on above: Primary hypertension (CMS/HCC) Start: 02-02-2024 End: 02-02-2024 Refill Sugar Wellington MA [facility] Comment on above: Primary hypertension (CMS/HCC) Start: 01-20-2024 End: 01-20-2024 Office outpatient visit 25 minutes Nasir Ward DEBEADER Work Phone: [facility] Comment on above: Primary hypertension (CMS/HCC) (Primary Dx); Coronary artery disease involving chalkyitsik coronary artery of chalkyitsik heart without angina pectoris (CMS/HCC); Stage 3a chronic kidney disease (HCC) (CMS/HCC); Gastroesophageal reflux disease without esophagitis; Tobacco abuse; Prostate cancer (CMS/HCC); Benign prostatic hyperplasia with lower urinary tract symptoms, symptom details unspecified Start: 01-20-2024 End: 01-20-2024 ambulatory NASIR WARD Not Available Start: 01-20-2024 End: 01-20-2024 Bamboo flowsheet Nasir Duttonk DEBEADER Work Phone: [facility] Start: 01-20-2024 End: 01-20-2024 Bamboo flowsheet Nasir Carterzpatrick DEBEADER Work Phone: [facility] Start: 12-15-2023 End: 12-15-2023 Patient encounter procedure Genoveva Nazario MD Work Phone: Radiation Oncology Comment on above: Prostate cancer (HCC ) (Primary Dx); Stage 3 chronic kidney disease, unspecified whether stage 3a or 3b CKD (HCC) Start: 12-08-2023 End: 12-08-2023 ambulatory SHAIKH DOTTY Not Available Start: 10-15-2023 End: 10-15-2023 Patient encounter procedure MD Shaikh Storm Work Phone: [facility] Vascular Surgery Work Phone: Start: 10-01-2023 End: 10-01-2023 ambulatory MD Shaikh Storm Work Phone: [facility] Work Phone: Start: 10-01-2023 End: 10-01-2023 Patient encounter procedure MD Shaikh Storm Work Phone: [facility] [place] Work Phone: Start: 09-28-2023 End: 09-28-2023 ambulatory SHAIKH DOTTY Not Available Start: 09-18-2023 End: 09-18-2023 ambulatory Barbara JOHNSTON Facility:[facility] Start: 09-18-2023 End: 09-18-2023 Patient encounter procedure Barbara JOHNSTON [facility] Start: 09-15-2023 Non-patient / Non-visit MD Yahaira Storm Work Phone: [facility] Work Phone: Start: 08-18-2023 End: 08-18-2023 Office outpatient visit 25 minutes Chaim Grayson DO Work Phone: [facility] Comment on above: Hypertension, unspec ified type; Mixed hyperlipidemia; Bilateral carotid artery disease, unspecified type (CMS/HCC); History of [place] (myocardial infarction); BMI 28.0-28.9,adult; ASHD (arteriosclerotic heart disease); PVD (peripheral vascular disease) ([facility]/HCC); Smoker; Chest pain, unspecified type Start: 08-10-2023 End: 08-11-2023 ambulatory Adalid Will MD Facility: [place] Start: 07-07-2023 End: 07-07-2023 ambulatory CLAIRE JAMES Facility:[facility] Start: 06-18-2023 End: 06-19-2023 ambulatory CHAIM Davison KENAN [facility] Start: 06-18-2023 End: 06-18-2023 Subsequent hospital visit by physician Tram [facility] Stress Room 1 [facility] Start: 06-12-2023 End: 06-13-2023 ambulatory JOSE NICHOLS Facility:[facility] Start: 06-12-2023 End: 06-12-2023 Office outpatient new 45 minutes Kodi Reynolds MD Work Phone: [facility] [place] Comment on above: Spondylolisthesis of lumbar region (Primary Dx) Start: 06-04-2023 End: 06-04-2023 Office consultation new/estab patient 80 min [facility] Work Phone: [facility] Comment on above: Hypertension, unspec ified type; Stage 3 chronic kidney disease, unspecified whether stage 3a or 3b CKD ([facility]); Mixed hyperlipidemia; Bilateral carotid artery disease, unspecified type ([facility]); Smoker; Chest pressure Start: 05-21-2023 End: 05-21-2023 ambulatory MD Shaikh Storm Work Phone: [facility] Work Phone: Start: 05-21-2023 End: 05-21-2023 Patient encounter procedure MD Shaikh Storm Work Phone: [facility]Electrodiagnostics Work Phone: Start: 05-19-2023 Telephone encounter Genoveva Nazario MD Work Phone: [facility] Comment on above: Appointment Confirma tion Start: 05-18-2023 ambulatory Jose rinaldi DO Work Phone: [facility] Start: 05-18-2023 Patient encounter procedure Jose Nichols DO Work Phone: Spine Medicine Comment on above: Consultation with a surgeon Start: 04-21-2023 End: 04-21-2023 ambulatory CLAIRE Boswell BRITNI Facility:[facility] Start: 04-21-2023 End: 04-21-2023 Lab Drop off CLAIRE JAMES [facility] Start: 04-21-2023 End: 04-21-2023 Patient encounter procedure CLAIRE JAMES [facility] Start: 04-16-2023 Office outpatient vi sit 15 minutes Jose Martin Mchugh [facility] Vascular Surgery Start: 04-16-2023 End: 04-16-2023 ambulatory MD Shaikh Storm Work Phone: [facility] [employer] Other Start: 04-16-2023 End: 04-16-2023 Patient encounter procedure MD Shaikh Storm Work Phone: [facility]Ultrasound [facility] Start: 03-23-2023 End: 03-23-2023 Admission to same day surgery center MD Shaikh Storm Work Phone: [facility]-Interventional Radiology Work Phone: Start: 03-23-2023 End: 03-23-2023 ambulatory MD Shaikh Storm Work Phone: [facility] Work Phone: Start: 03-12-2023 End: 03-12-2023 ambulatory Jose Martin Mchugh Other [facility] [employer] Other Start: 03-12-2023 Office outpatient vi sit 25 minutes Jose Martin Mchugh [facility] Vascular Surgery Start: 03-12-2023 Telephone encounter Theo Thakkar [facility] Nephrology Start: 03-09-2023 End: 03-09-2023 ambulatory MD Shaikh Storm Work Phone: [facility] Work Phone: Start: 03-09-2023 End: 03-09-2023 Patient encounter procedure MD Shaikh Storm Work Phone: [facility] [place] Work Phone: Start: 03-05-2023 End: 03-05-2023 ambulatory MD Shaikh Storm Work Phone: [facility] Work Phone: Start: 03-05-2023 End: 03-05-2023 Patient encounter procedure MD Shaikh Storm Work Phone: [facility]Ultrasound [facility] [place] Work Phone: Start: 03-04-2023 End: 03-04-2023 ambulatory MD Shaikh Storm Work Phone: [facility] Work Phone: Start: 03-04-2023 End: 03-04-2023 Patient encounter procedure MD Shaikh Storm Work Phone: [facility]Ultrasound [facility] [place] Work Phone: Start: 02-20-2023 End: 02-20-2023 Admission to same day surgery center MD Shaikh Storm Work Phone: [facility]Surgery Center [facility] [place] Start: 02-18-2023 End: 02-18-2023 ambulatory Bonnie Tan Other [facility] Other Start: 02-18-2023 Office outpatient ne w 60 minutes Bonnie Tan [facility] Start: 02-11-2023 End: 02-11-2023 Patient encounter procedure CLAIRE JAMES [facility] Start: 02-06-2023 End: 02-06-2023 ambulatory MD Shaikh Storm Work Phone: [facility] Work Phone: Start: 02-06-2023 End: 02-06-2023 Departed Referred MD Shaikh Storm Work Phone: [facility] Work Phone: Start: 02-06-2023 End: 02-06-2023 Patient encounter procedure MD Shaikh Storm Work Phone: [facility] Dxq-Udv-Hfzdhzni Testing Work Phone: Start: 01-20-2023 Telephone encounter Constance Durand [facility] ematology/Oncology Comment on above: Social Work Services Start: 01-19-2023 End: 01-19-2023 Patient encounter procedure Jose Nichols DO Work Phone: Spine Medicine Comment on above: Spinal stenosis, 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); Foraminal stenosis of lumbar region; Peripheral artery disease (HCC); Prostate cancer (HCC) Start: 01-15-2023 Telephone encounter Jose Nichols DO Work Phone: [address] [place] [address] Comment on above: Orders; Appointment Start: 01-09-2023 End: 01-09-2023 ambulatory MD Shaikh Storm Work Phone: [facility] Work Phone: Start: 01-09-2023 End: 01-09-2023 Patient encounter procedure MD Shaikh Storm Work Phone: [facility] [place] Work Phone: Start: 01-06-2023 Telephone encounter Genoveva Nazario MD Work Phone: Radiation Oncology Comment on above: Orders Start: 01-05-2023 Telephone encounter Evelyn Chamberlain RN [facility] INTERVENTIONAL RADI[facility] Comment on above: Patient Question; Ap pointment Start: 12-03-2022 End: 12-03-2022 Patient encounter procedure CLAIRE JAMES [facility] Start: 11-18-2022 Telephone encounter Genoveva Nazario [...] Facility: Start: 10-09-2022 End: 10-10-2022 ambulatory ALBERTO DE SANTIAGO . Facility:[facility] Start: 07-15-2022 ambulatory RUT Avila ty:[facility] Start: 06-06-2022 Telephone encounter Constance Durand [facility] ematology/Oncology Comment on above: Social Work Services [...] 05-09-2022 ambulatory MD Shaikh Storm Work Phone: [facility] Work Phone: Start: 05-09-2022 End: 05-09-2022 Patient encounter procedure MD Shaikh Storm Work Phone: [facility] [place] Start: 04-30-2022 Social Work Constance BROWN Hematolo gy/Oncology Start: 04-23-2022 End: 04-23-2022 ambulatory MD Shaikh Storm Work Phone: [facility] Work Phone: Start: 04-23-2022 End: 04-23-2022 Patient encounter procedure MD Shaikh Storm Work Phone: [facility] [place] Start: 04-23-2022 Radiation Oncology Note G Mahamed [...] End: 03-27-2022 Patient encounter procedure Lab/[place] [facility] Work Phone: Radiation Oncology Comment on [...] Phone: [facility] Start: 03-12-2022 Radiation Oncology Note Genoveva Nazario [...] 02-13-2022 Patient encounter procedure Zeinab Justice [facility] Start: 02-11-2022 End: 02-11-[address] HOSEA OLIVA . Facility:[facility] Start: 02-09-2022 Encounter for preprocedural laboratory examination DR HOSEA OLIVA . [facility] Start: 02-07-2022 Telephone encounter Genoveva Nazario [...] . Facility:[facility] Start: 12-12-2021 End: 12-13-2021 ambulatory LOPEZGALI HOBBS . Facility:[facility] Start: 12-10-2021 End: 12-10-2021 Patient encounter procedure Genoveva Nazario MD Work Phone: Radiation Oncology Comment on above: Malignant neoplasm o f prostate (HCC) (Primary Dx) Start: 11-04-2021 End: 11-04-2021 Patient encounter procedure Barbara JOHNSTON [facility] Start: 10-24-2021 End: 05-26-2022 ambulatory Theo Vivian Other [facility] Other Start: 10-24-2021 Office outpatient ne w 45 minutes Theo Thakkar [facility] Procedures Date Procedure Procedure Detail Performing Clinician Start: 02-21-2025 Ct lumbar spine w/o contrast material Generic External Data Provider Start: 02-13-2025 [facility] CBC WITH PLATEL ET NO DIFFERENTIAL Generic External Data Provider Start: 01-12-2025 [facility] PSA SERPL-[facility] Gene alvin External Data Provider Start: 08-18-2024 Follow-up visit Follow-up NICKOLAS BENÍTEZ Start: 08-10-2024 Urine culture Brian doyle [...] Author Start: 11-17-2026 Diabetes Screening Diabetes Screening [facility] Start: 06-10-2026 Diabetes Screening Diabetes Screening [facility] Start: 08-30-2025 End: 08-30-2025 Patient encounter procedure 08/30/2025 10:00 AM EDT Office Visit [facility] [address] [place] [address] Chaim Grayson DO [address] [place] [address] [facility] Start: 05-15-2025 ambulatory Ambulatory Facility:[facility] Start: 04-20-2025 End: 07-20-2025 Prostate specific Ag [Mass/volume] in Serum or Plasma PROSTATE-SPECIFIC ANTIGEN DIAGNOSTIC Lab Routine Cancer of prostate w/med recur risk (T2b-c or Nicola 7 or PSA 10-20) (HCC) Expected: 04/20/2025, Expires: 07/20/2025 [facility] Work Phone: Comment on above: Expected: 04/20/2025, Expires: Start: 04-20-2025 End: 04-20-2025 Patient encounter procedure 04/20/2025 9:45 AM EST Office Visit Radiation Oncology [address] [place] [address] Genoveva Nazario MD [address] [place] [address] 3 month follow up Radiation Oncology Comment on above: 3 month follow up Start: 01-30-2025 Influenza vaccination [facility] Start: 12-14-2024 End: 03-15-2025 Prostate specific Ag [Mass/volume] in Serum or Plasma PROSTATE-SPECIFIC ANTIGEN DIAGNOSTIC Lab Routine Prostate cancer (HCC) Expected: 12/14/2024, Expires: 03/15/2025 [facility] Work Phone: Comment on above: Expected: 12/14/2024, Expires: Start: 12-13-2024 End: 12-13-2024 Patient encounter procedure 12/13/2024 1:15 PM EDT Office Visit Radiation Oncology [address] [facility] [place] [address] Genoveva Nazario MD [address] [place] [address] 1 yr rv Radiation Oncology Comment on above: 1 yr rv Start: 12-07-2024 Medicare Annual Wellness (AWV) Medicare Annual Wellness (AWV) [facility] Start: 12-06-2024 End: 12-06-2024 Patient encounter procedure 12/06/2024 1:00 PM EDT Office Visit [facility] [address] [place] [address] Lab [facility] Comment on above: Lab Start: 11-17-2024 Complete blood count Hemoglobin/Hematocrit [facility] Start: 11-17-2024 Creatinine measurement Serum Creatinine [facility] Start: 09-29-2024 End: 09-29-2024 Patient encounter procedure 09/29/2024 10:00 AM EDT Office Visit [facility] [address] [place] [phone] Nasir Ward, VALENTIN [address] [place] [address] [facility] Start: 08-18-2024 End: 08-18-2024 Patient encounter procedure 08/18/2024 10:00 AM EDT Office Visit [facility] [address] [place] [address] Chaim Grayson, [address] [place] [address] [facility] Start: 08-10-2024 Bacteria identified in Urine by Culture Urine Culture [facility] Start: 08-10-2024 Urine culture [facility] Start: 07-13-2024 End: 07-13-2024 Patient encounter procedure [facility] Comment on above: Arrived Start: 06-10-2024 Creatinine measurement Serum Creatinine [facility] Start: 06-01-2024 Advance Directive Discussion Advance Directive Discussion [facility] Start: 06-01-2024 Medicare Advantage Annual Wellness Visit Medicare Advantage Annual Wellness Visit [facility] Start: 04-21-2024 End: 04-21-2024 Patient encounter procedure [facility] Comment on above: Arrived Start: 02-25-2024 Bacteria identified in Urine by Culture [facility] Start: 01-31-2024 Covid-19 Vaccine ( season) Covid-19 Vaccine ( season) [facility] Start: 01-31-2024 Influenza vaccination Influenza Vaccine (#1) [facility] Start: 01-20-2024 End: 01-20-2024 Patient encounter procedure 01/20/2024 6:00 PM EDT [facility] [address] [place] [address] Nasir Ward NP [address] [place] [address] Primary hypertension (CMS/HCC) (Primary Dx); Coronary artery disease involving chalkyitsik coronary artery of chalkyitsik heart without angina pectoris (CMS/HCC); Stage 3a chronic kidney disease (HCC) (CMS/HCC); Gastroesophageal reflux disease without esophagitis [facility] Comment on above: Primary hypertension (CMS/HCC) (Primary Dx); Coronary artery disease involving chalkyitsik coronary artery of chalkyitsik heart without angina pectoris (CMS/HCC); Stage 3a chronic kidney disease (HCC) (CMS/HCC); Gastroesophageal reflux disease without esophagitis Start: 10-15-2023 Ankle brachial pressure index [facility] Start: 08-18-2023 End: 08-18-2023 Patient encounter procedure 08/18/2023 11:10 AM EDT Office Visit [address] [phone] Chaim Grayson DO [address] [facility] [address] [place] [address] [facility] Start: 07-08-2023 End: 07-08-2023 Clinical Support 07/08/2023 10:30 AM EST Clinical Support [address] [phone] [facility] Start: 06-04-2023 End: 06-04-2024 Alanine aminotransferase [Enzymatic activity/volume] in Serum or Plasma by With P-5'-P Alanine Aminotransferase Lab Routine Hypertension, unspecified type Bilateral carotid artery disease, unspecified type (CMS/HCC) Expected: 06/04/2023 (Approximate), Expires: 06/04/2024 [facility] Work Phone: Comment on above: Expected: 06/04/2023 (Approximate), Expi res: 06/04/2024 Start: 06-04-2023 End: 06-04-2024 Aspartate aminotransferase [Enzymatic activity/volume] in Serum or Plasma by With P-5'-P Aspartate Aminotransferase Lab Routine Hypertension, unspecified type Bilateral carotid artery disease, unspecified type (CMS/HCC) Expected: 06/04/2023 (Approximate), Expires: 06/04/2024 [facility] Work Phone: Comment on above: Expected: 06/04/2023 (Approximate), Expi res: 06/04/2024 Start: 06-04-2023 End: 06-04-2024 Basic metabolic 2000 panel - Serum or Plasma Basic Metabolic Panel Lab Routine Hypertension, unspecified type Mixed hyperlipidemia Expected: 06/04/2023 (Approximate), Expires: 06/04/2024 [facility] Work Phone: Comment on above: Expected: 06/04/2023 (Approximate), Expi res: 06/04/2024 Start: 06-04-2023 End: 06-04-2024 Lipid 1996 panel - Serum or Plasma Lipid Panel Lab Routine Mixed hyperlipidemia Expected: 06/04/2023 (Approximate), Expires: 06/04/2024 [facility] Work Phone: Comment on above: Expected: 06/04/2023 (Approximate), Expi res: 06/04/2024 Start: 06-04-2023 End: 06-04-2025 NM Heart Perfusion W stress and W radionuclide IV Nuclear Stress Test Cardiac Nuclear Medicine Routine Hypertension, unspecified type Bilateral carotid artery disease, unspecified type (CMS/HCC) Chest pressure Expected: 06/04/2023 (Approximate), Expires: 06/04/2025 [facility] Service Area Work Phone: Comment on above: Expected: 06/04/2023 (Approximate), Expi res: 06/04/2025 Start: 06-01-2023 Advance Directive Discussion Advance Directive Discussion [facility] Start: 06-01-2023 Behavioral Health Screening Behavioral Health Screening [facility] Start: 06-01-2023 Depression Assessment Depression Assessment [facility] Start: 05-20-2023 End: 07-20-2023 Prostate specific Ag [Mass/volume] in Serum or Plasma PSA/PROSTSPECAG DIAG Lab Routine History of prostate cancer Expected: 05/20/2023, Expires: 07/20/2023 [facility] Work Phone: Comment on above: Expected: 05/20/2023, Expires: Start: 03-27-2023 Complete blood count Hemoglobin/Hematocrit [facility] Start: 03-27-2023 HEMOGLOBIN/HEMATOCRIT HEMOGLOBIN/HEMATOCRIT [facility] Start: 03-23-2023 [facility] Start: 03-09-2023 Bacteria identified in Urine by Culture [facility] Start: 03-05-2023 Pulse volume recorder plethysmography [facility] Start: 02-20-2023 End: 02-20-2023 [facility] Start: 01-30-2023 Covid-19 Vaccine ( season) Covid-19 Vaccine () [facility] Start: 01-30-2023 Influenza vaccination [facility] Start: 06-03-2022 End: 08-03-2022 Bacteria identified in Urine by Culture URINE CULTURE Microbiology Routine Hematuria, unspecified type Malignant neoplasm of prostate (HCC) Expected: 06/03/2022 (Approximate), Expires: 08/03/2022 [facility] Work Phone: Comment on above: Expected: 06/03/2022 (Approximate), Expi res: 08/03/2022 Start: 06-03-2022 End: 08-03-2022 UA DIP B/O UA DIP B/O Lab Routine Hematuria, unspecified type Malignant neoplasm of prostate (HCC) Expected: 06/03/2022 (Approximate), Expires: 08/03/2022 [facility] Work Phone: Comment on above: Expected: 06/03/2022 (Approximate), Expi res: 08/03/2022 Start: 06-01-2022 ADVANCE DIRECTIVE DISCUSSION ADVANCE DIRECTIVE DISCUSSION [facility] Start: 06-01-2022 DEPRESSION ASSESSMENT DEPRESSION ASSESSMENT [facility] Start: 04-21-2022 End: 06-21-2022 Prostate specific Ag [Mass/volume] in Serum or Plasma PSA/PROSTSPECAG DIAG Lab Routine Malignant neoplasm of prostate (HCC) Expected: 04/21/2022, Expires: 06/21/2022 [facility] Work Phone: Comment on above: Expected: 04/21/2022, Expires: 3 Start: 03-27-2022 End: 03-18-2023 CBC W Auto Differential panel - Blood CBC + DIFF Lab Routine Malignant neoplasm of prostate (HCC) Expected: 03/27/2022, Expires: 03/18/2023 [facility] Work Phone: Comment on above: Expected: 03/27/2022, Expires: 3 Start: 01-30-2022 Influenza vaccination INFLUENZA (#1) [facility] Start: 06-01-2021 ADVANCE DIRECTIVE DISCUSSION ADVANCE DIRECTIVE DISCUSSION [facility] Start: 06-01-2021 DEPRESSION ASSESSMENT DEPRESSION ASSESSMENT [facility] Start: 12-23-2020 COVID-19 VACCINE (3 - Booster for Moderna series) COVID-19 VACCINE (3 - Booster for Moderna series) [facility] Start: 09-20-2020 COVID-19 VACCINE (3 - Booster for Moderna series) COVID-19 VACCINE (3 - Booster for Moderna series) [facility] Start: 09-20-2020 COVID-19 VACCINE (3 - Moderna series) COVID-19 VACCINE (3 - Moderna series) [facility] Start: 09-20-2020 COVID-19 VACCINE (4 - Booster) COVID-19 VACCINE (4 - Booster) [facility] Start: 09-20-2020 COVID-19 Vaccine (4 - Moderna series) COVID-19 Vaccine (4 - Moderna series) [facility] Start: 2020 RSV High Risk: (Elderly (60+) or Population) (1 - 1-dose 75+ series) RSV High Risk: (Elderly (60+) or Population) (1 - 1-dose 75+ series) [facility] Start: 2020 RSV Vaccine (1 - 1-dose 75+ series) RSV Vaccine (1 - 1-dose 75+ series) [facility] Start: 2005 RSV Vaccine (1 - 1-dose 60+ series) RSV Vaccine (1 - 1-dose 60+ series) [facility] Start: 1995 Influenza vaccination LUNG CANCER SCREENING [facility] Start: 1995 Screening for malignant neoplasm of lung Lung Cancer Screening [facility] Start: 1995 SHINGRIX VACCINE (1 of 2) SHINGRIX VACCINE (1 of 2) [facility] Start: 1995 Zoster Vaccines (1 of 2) Zoster Vaccines (1 of 2) [facility] Start: 1990 DIABETES SCREEN DIABETES SCREEN [facility] Start: 1990 Diabetes Screening Diabetes Screening [facility] Start: 1967 DTaP/Tdap/Td Vaccines (1 - Tdap) DTaP/Tdap/Td Vaccines (1 - Tdap) [facility] Start: 1964 Pneumococcal vaccination Pneumococcal Vaccine (1 of 2 - PCV) [facility] Start: 1964 Pneumococcal Vaccine: 50+ (1 of 2 - PCV) Pneumococcal Vaccine: 50+ (1 of 2 - PCV) [facility] Start: 1964 Pneumococcal Vaccine: 65+ Years (1 of 2 - PCV) Pneumococcal Vaccine: 65+ Years (1 of 2 - PCV) [facility] Start: 1964 Urine microalbumin profile [facility] Start: 1964 Urine screening for protein CKD: Urine Protein Screening [facility] Start: 1963 ANNUAL PCP TEAM CHRONIC DISEASE VISIT ANNUAL PCP TEAM CHRONIC DISEASE VISIT [facility] Start: 1963 Anxiety Screening Anxiety Screening [facility] Start: 1963 Creatinine measurement Serum Creatinine [facility] Start: 1963 Depression Screening Depression Screening [facility] Start: 1963 HEPATITIS C SCREENING HEPATITIS C SCREENING [facility] Start: 1963 Hepatitis C screening Hepatitis C Screening [facility] Start: 1963 SERUM CREATININE SERUM CREATININE [facility] Start: 1957 Adult depression screening assessment DEPRESSION SCREENING [facility] Start: 1951 Pneumococcal Vaccine: 65+ (1 - PCV) Pneumococcal Vaccine: 65+ (1 - PCV) [facility] Start: 1951 Pneumococcal Vaccine: 65+ (1 of 2 - PCV) Pneumococcal Vaccine: 65+ (1 of 2 - PCV) [facility] Start: 1951 Pneumococcal Vaccine: 65+ Years (1 - PCV) Pneumococcal Vaccine: 65+ Years (1 - PCV) [facility] Start: 1951 Pneumococcal Vaccine: 65+ Years (1 of 2 - PCV) Pneumococcal Vaccine: 65+ Years (1 of 2 - PCV) [facility] Start: 1951 PNEUMOCOCCAL: 65+ (1 - PCV) PNEUMOCOCCAL: 65+ (1 - PCV) [facility] Start: 1945 Lipid panel Lipid Panel [facility] Start: 1945 Medicare Annual Wellness Visit Medicare Annual Wellness Visit (AWV) [facility] CBC W Auto Different ial panel - Blood CBC and differential Lab Routine Stage 3a chronic kidney disease (HCC) (CMS/HCC) Ordered: 07/13/2024 [facility] Work Phone: Comment on above: Ordered: 07/13/2024 Comprehensive metabo lic 2000 panel - Serum or Plasma Comprehensive metabolic panel Lab Routine Stage 3a chronic kidney disease (HCC) (CMS/HCC) Ordered: 07/13/2024 [facility] Comment on above: Ordered: 07/13/2024 CT SIM PLANNING RADI ATION ONCOLOGY CT SIM PLANNING RADIATION ONCOLOGY Radiology Routine Malignant neoplasm of prostate (HCC) Ordered: 03/03/2022 [facility] Work Phone: Comment on above: Ordered: 03/03/2022 End: 12-19-2023 Mri spinal canal lumbar w/o & w/contr matrl MRI LUMBAR SPINE WO/W IVCON Radiology Routine Spinal stenosis of lumbar region, unspecified whether neurogenic claudication present 1 Occurrences starting 11/19/2022 until 12/19/2023 [facility] Work Phone: Comment on above: 1 Occurrences starting 11/19/2022 until 12/19/2023 End: 12-21-2023 Mri spinal canal lumbar w/o & w/contr matrl MRI LUMBAR SPINE WO/W IVCON Radiology Routine Spinal stenosis of lumbar region without neurogenic claudication 1 Occurrences starting 11/21/2022 until 12/21/2023 [facility] Work Phone: Comment on above: 1 Occurrences starting 11/21/2022 until 12/21/2023 End: 02-05-2024 Mri spinal canal lumbar w/o & w/contr matrl MRI LUMBAR SPINE WO/W IVCON Radiology Routine Spinal stenosis of lumbar region, unspecified whether neurogenic claudication present 1 Occurrences starting 01/06/2023 until 02/05/2024 [facility] Work Phone: Comment on above: 1 Occurrences starting 01/06/2023 until 02/05/2024 Patient Education [facility] Work Phone: Patient referral [facility] Work Phone: Renal function 1999 panel - Serum or Plasma [facility] Renal function 1999 panel - Serum or Plasma [facility] Renal function 1999 panel - Serum or Plasma [facility] Immunizations Immunization Date Immunization Notes Care Provider Fa cilijavier 07-26-2020 SARS-CoV-2 (COVID-19 ) mRNA-1273 vaccine Barbara JOHNSTON [facility] 06-28-2020 SARS-CoV-2 (COVID-19 ) mRNA-1273 vaccine Barbara JOHNSTON [facility] 06-25-2020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 treat pain from [...] ED or if you have any other [facility] Work Phone: [phone]) 249-644202-12-2025 History of Present illness Narrative* Nasir Ward NP - 07/13/2024 1:50 PM ESTAssociated Problem(s): Hypertension ([facility]) Currently taking amlodipine, valsartan. Follows with Cardiology Does not check BP at home; Denies orthostatic changes, dizziness, cough, shortness of breath, swelling in extremities. Continue current regimen. Given BP log, advised pt to record BP and bring log back with them to next visit. * Nasir Ward NP - 07/13/2024 1:50 PM ESTAssociated Problem(s): HLD (hyperlipidemia) ([facility]/HCC) Currently taking Prvastatin 40mg Denies any myalgias. [...] for Lumbar Stenosis. Recently reduced dosage of [place]. Feels symptoms are well controlled. Continue current [...] CHOLESTEROL mg/dL 16 CHOL/HDL RATIO <5.0 3.6 [facility] CKD: Follows with Nephrology- Dr. Thakkar Most Recent eGFR: 47 Creatinine: 1.51 Avoid nephrotoxic agents. Monitor closely. Following with Pain Management for Lumbar Stenosis. Recently reduced dosage of [place]. Feels symptoms are well controlled. Continue current [...] for Lumbar Stenosis. Recently reduced dosage of [place]. Feels symptoms are well controlled. Continue current regimen as directed by PM. documented in this encounterOzarks Medical [id number] Evaluation note* Diagnosis Primary hypertension (CMS/HCC)- Primary [...] neoplasm of prostate Coronary artery disease involving [place] coronary artery of [place] heart without angina pectoris (CMS/HCC) H/O prostate cancer Mixed hyperlipidemia (CMS/HCC) Mixed hyperlipidemia Chronic bilateral low back pain with bilateral sciatica Coronary artery disease involving [place] coronary artery of [place] heart without angina pectoris (CMS/HCC)- Primary PAD (peripheral artery disease) (CMS/HCC) Unspecified peripheral vascular disease Primary hypertension (CMS/HCC) Unspecified essential hypertension Stage 3a chronic kidney disease (HCC) (CMS/HCC) Lumbar stenosis with neurogenic claudication Mixed hyperlipidemia (CMS/HCC) Mixed hyperlipidemia Elevated random blood glucose level Unintentional weight change Gastroesophageal reflux disease without esophagitis Esophageal reflux Coronary artery disease involving [place] coronary artery of [place] heart without angina pectoris (CMS/HCC)- Primary Stage 3a chronic kidney disease (HCC) (CMS/HCC) Lumbar stenosis with neurogenic claudication Primary hypertension (CMS/HCC)- Primary Unspecified essential hypertension Coronary artery disease involving [place] coronary artery of [place] heart without angina pectoris (CMS/HCC) Stage 3a [...] Unspecified essential hypertension documented in this encounter [facility] [id number] History of Present illness Narrative* Nasir Ward, VALENTIN - 04/21/2024 11:43 AM ESTAssociated Problem(s): Stage [...] CHOLESTEROL mg/dL 16 CHOL/HDL RATIO <5.0 3.6 [facility] CKD: Follows with Nephrology. Avoid nephrotoxic agents. Monitor closely. Following with Pain Management for Lumbar Stenosis. Recently had surgery. Pt reports he recently had blood work done in January- nothing new in [employer]. Will request labs from Dr. Thakkar. Review [...] nephrotoxic agents. Monitor closely. documented in this encounterOzarks Medical CenterOkkdyhhbdg94-22-2633 Hospital Discharge instructions Patient Education 04/18/2024 12:09:27 [...] Treatment for this condition includes: Antibiotic medicine. Veqe-qfx-vhskbgq medicines to treat discomfort. Drinking enough water [...] Follow these instructions at home: Medicines Take gvph-pvp-hcdykqs and prescription medicines only as told by [...] provider. Document Revised: 12/23/2020 Document Reviewed: 12/28/2020 [email or web address] Patient Education 2023 [employer]. Follow Up Care 09/18/2023 12:00:10 With:PRESTON MAK, Barbara Warner, URL Address: [facility] [address] [place] [address]- [phone] When: Unknown Comments:1 yr w/ PSA [facility] 11-18-2024 NotePatient Education Obstetrics and Gynecology Urinary [...] this condition includes: ??? Antibiotic medicine. ??? Guqd-vus-molodss medicines to treat discomfort. ??? Drinking enough [...] these instructions at home: Medicines ??? Take xgoq-hyk-chaujgz and prescription medicines only as told by [...] Make sure you di (more content not included)...[facility]09-19-2024 Telephone encounter Note* Telephone Encounter - Sugar Wellington MA - 02/18/2024 9:49 AM EDT Refill [facility] from [facility] - [facility] [id number] Miscellaneous Notes* Telephone Encounter - Sugar Wellington MA - 02/18/2024 9:49 AM EDT Refill request from [facility] - documented in this [facility]09-03-2024 Telephone encounter Note* Telephone Encounter - Sugar Wellington MA - 02/02/2024 11:29 AM EDT PT INTO OFFICE AND SAID ALL OTHER RXS WERE SENT IN FOR 90 DAY SUPPLIES BUT AMLODIPINE WASN'T SENT IN? CAN YOU SEND IN A 90 BEFORE THURSDAY THEY ARE LEAVING OUT OF STATE FOR THREE MONTHS. -SCR [facility] [id number] Miscellaneous Notes* Telephone Encounter - Sugar Wellington MA - 02/02/2024 11:29 AM EDT PT INTO OFFICE AND SAID ALL OTHER RXS WERE SENT IN FOR 90 DAY SUPPLIES BUT AMLODIPINE WASN'T SENT IN? CAN YOU SEND IN A 90DAY BEFORE THURSDAY THEY ARE LEAVING OUT OF STATE FOR THREE MONTHS. -SCR documented in this [facility]08-21-2024 History of Present illness Narrative* Nasir [...] Problem(s): Stage 3 chronic kidney disease (HCC) ([facility]/HCC) Follows Nephrology Dr. Thakkar CKD stage 3. Continue to monitor and avoid nephrotoxic agents. * Nasir Ward NP - 01/20/2024 6:42 PM EDTAssociated Problem(s): Coronary artery disease involving [place] coronary artery of [place] heart with out angina pectoris (CMS/HCC) Follows [...] avoid nephrotoxic agents. Coronary artery disease involving [place] coronary artery of [place] heart without angina pectoris (CMS/HCC) Follows Cardiology [...] very well. Denies complaints. documented in this [facility]08-21-2024 Instructions* Patient Instructions* Nasir Ward NP - 01/20/2024 6:00 PM EDT Referral sent to Dr. Bryant- Urology; They will call you! Call if you need anything! documented in this [facility]07-23-2024 Evaluation note* Diagnosis Prostate cancer (HCC)- Primary Malignant neoplasm of prostate Stage 3 chronic kidney disease, unspecified whether stage 3a or 3b CKD (HCC) documented in this encounter [facility]07[facility]16[facility] Nurse Note* Diane Parada LPN - 12/15/2023 2:36 PM EDT AUA= 13 [facility]07-16-2024 Nurse Note* Diane Parada LPN - 12/15/2023 2:36 PM EDT AUA= 13 documented in this encounterUniversity [facility]als [facility]07-[facility]-2024 History of Present illness Narrative* Genoveva Nazario [...] Nazario MD cc: Shaikh Dotty [address] [place] [address] documented in this encounterUniversity Hospitals [facility]04-19-2024 Hospital Discharge instructions Patient Education 09/18/2023 11:40:21 [...] to keep your urine pale yellow. ?Take bycv-fcx-afsemnb or prescription medicines. ?Eat foods that are high in fiber, such as beans, whole grains, and fresh fruits and vegetables. ?Limit foods that are high in fat and processed sugars, such as fried or sweet foods. General instructions Take htxf-ojn-jrysldg and prescription medicines only as told by [...] the muscles that help control urination. Take lztc-xwv-kjcbcdc and prescription medicines only as told by your health care provider. Contact a health care provider if your symptoms do not improve or get worse. This information is not intended to replace advice given to you by your health care provider. Make sure you discuss any questions you have with your health care provider. Document Revised: 12/21/2020 Document Reviewed: 12/21/2020 [email or web address] Patient Education 2022 [employer]. Follow Up Care 07/07/2023 09:49:12 With:PRESTON MAK, Barbara Warner, URL Address: [address] [place] [address]- When: Unknown [facility] 03-19-2024 History of Present illness Narrative* Chaim Grayson, - 08/18/2023 11:10 AM EDT Subjective Yesenia Broussard is a 78 y.o. male Chief Complaint Follow-up 78-year-old gentleman returns for follow-up following recent imaging, stress perfusion imaging is reviewed and revealed normal left ventricular function and normal perfusion exam without evidence forischemia or infarction and preserved ejection fraction Details of his history are noted for prior inferior FL with revascularization of the RCA in [place] followed by bilateral carotid endarterectomies. More recently [...] normal. Judgment: Judgment normal. Allergies Ezetimibe and Siosgji-yxl-vbz reductase inhibitors Current Medications Current Outpatient Medications: [...] , Rfl: ergocalciferol (Vitamin D-2) 1.25 MG (26230 UT) capsule, Take 1 capsule (1,250 mcg) by mouth 1 (one) time per week., Disp: , Rfl: gabapentin (Neurontin) 100 mg capsule, Take 1 capsule (100 mg) by mouth 2 times a day., Disp: , Rfl: HYDROcodone-acetaminophen ([place]) 7.5-325 mg tablet, Take 1 tablet by [...] Follow Up In Cardiology 4. History of FL (myocardial infarction) 5. BMI 28.0-28.9,adult 6. ASHD (arteriosclerotic heart disease) 7. PVD (peripheral vascular disease) (CMS/HCC) 8. Smoker 9. Chest pain, unspecified type Scribe Attestation By signing my name below, I, Mukund Starkey LPNibteresa attest that this documentation has been prepared [...] exam, discussion and plan. [facility] Work Phone: 1(563) 934-855403-19-2024 Instructions* Patient Instructions* Shahla Foster MA - [...] time of your visit. documented in [facility] Work Phone: 1(315) 534-575001-14-2024 NoteHNO ID: [id number] Author: KODI REYNOLDS MD Service: ? Author [...] pleasant 77-year-old male who recently moved from [place] to [place]. He reports longstanding history of back and [...] 0 0 0 PHQ- (more content not included)...[facility] [id number] History of Present illness Narrative* Kodi Reynolds [...] pleasant 77-year-old male who recently moved from [place] to [place]. He reports longstanding history of back and [...] BICEPS TRICEPS DELTS Wrist Ext Wrist Flex Field Rep HI R 5 5 5 5 5 [...] heat Medications: See medication reconciliation list in [facility] MEDICATIONS: Hydrocodone, Gabapentin 2017 back surgery with a 50-70% relieve PT done 2021 How is your appetite?: normal Do you feel safe in the home? Yes Do you have concerns about falling or have you fallen in the past year? No Do you have difficulty performing or completing routine daily living activities? No Bert Harper documented in this encounterUniversity [facility]als [facility]01-12-2024 NoteHNO ID: [id number] Author: ?, ?, ? Service: ? Author [...] heat Medications: See medication reconciliation list in [facility] MEDICATIONS: Hydrocodone, Gabapentin 2017 back surgery with a 50-70% relieve PT done 2021 How is your appetite?: normal Do you feel safe in the home? Yes Do you have concerns about falling or have you fallen in the past year? No Do you have difficulty performing or completing routine daily living activities? No Bert [facility]01-04-2024 History of Present illness Narrative * Chaim Grayson, DO - 06/04/2023 9:50 AM EST Cardiology Consultation- New Consult Reason for referral: 77-year-old gentleman seen in cardiology consultation at the request of primary care physician Dr. Storm, for further evaluation regarding chest discomfort. Patient moved [place] [facility] [place] approximately 2 years ago. He has a history of previous inferior FL in the mid with revascularization of the RCA in [place] followed by stroke with subsequent bilateral carotid [...] ischemia given his risk factors and previous FL and revascularization on follow-up thereafterwards HPI: Yesenia Renteria is a 77 y.o. male Past Medical History: He has a past medical history of Abnormal ECG (05-20-2023), Cancer ([facility]) (07/07/2021), Chronic kidney disease, Coronary artery disease, Hypertension, Myocardial infarction ([facility]) (10/30/1996), and Stroke ([facility]) (01/31/12). Surgical History: He has a past [...] Alcohol use: Not Currently Allergies: Ezetimibe and Kmzzqvl-kms-cqj reductase inhibitors Current Medications: Current Outpatient Medications: [...] , Rfl: ergocalciferol (Vitamin D-2) 1.25 MG (83160 UT) capsule, Take 1 capsule (1,250 mcg) by mouth 1 (one) time per week., Disp: , Rfl: HYDROcodone-acetaminophen ([place]) 7.5-325 mg tablet, Take 1 tablet by [...] of Kaya Grayson DO. documented in [facility] Work Phone: 1(325) 925-454301-04-2024 Instructions* Patient Instructions* Yunier Mathur MA - [...] time of your visit. documented in this encounterAk[facility] Work Phone: 1(223) 734-275601-04-2024 Evaluation note* Diagnosis Hypertension, unspecified type Stage 3 chronic kidney disease, unspecified whether stage 3a or 3b CKD (CMS/HCC) Mixed hyperlipidemia Bilateral carotid artery disease, unspecified type (CMS/HCC) Smoker Tobacco use disorder Chest pressure Other chest pain documented in this encounter [facility] Work Phone: 1(199) 105-760912-20-2023 Miscellaneous Notes* Telephone Encounter - Claire Koroma - 05/20/2023 9:14 AM EST Margaret- records were not sent, so we shouldn't have to call and cancel. * Telephone Encounter - Diane Parada LPN - 05/20/2023 9:08 AM EST Mrs. Broussard called stating they contacted one of Dexter's previous physicians at [facility] spine clinic and he will arrange for Dexter to see [facility] neurosurgeon. Please cancel the referral to [facility] neurosurgeon perpatient request. Diane Parada RN * Telephone Encounter - Margaret Castle - 05/19/2023 2:11 PM EST Neelam when order is signed can you please send records to Dr Marvin at [facility] thank you! Facesheet in your box documented in this encounterUniversity Hospitals [facility]12-19-2023 Miscellaneous Notes* Telephone Encounter - Julianna Yuan RN - 05/19/2023 10:45 AM EST Patient is requesting referral to Surgeon. He looks like had MRI of Lumbar spine on 02/20/2023 but no images in system. We do have report. documented in this encounterUniversity Hospitals [facility]11-21-2023 Hospital Discharge instructions Patient Education [...] Follow these instructions at home: Medicines Take hqyq-wpx-iywzivq and prescription medicines only as told by [...] provider. Document Revised: 08/14/2021 Document Reviewed: 08/14/2021 [email or web address] Patient Education 2022 [email or web address] Follow Up Care 02/11/2023 15:24:55 With:CLAIRE JAMES PA-C, URL Address: [address] [place] [place] [address] [phone] When: Unknown [facility] 11-16-2023 Evaluation note* Encounter Date Diagnosis [...] in 6 months with repeat surveillance ABIs. [employer] Other 10-23-2023 [facility] Evaluation note* Encounter Date Diagnosis [...] will schedule this in the near future. [facility] [employer] Other 09-20-2023 Evaluation note* Encounter Date Diagnosis [...] once again all his questions were addressed. [facility] [employer] Other 09-13-2023 Hospital Discharge instructions Patient Education [...] urethra. Follow these instructions at home: Take mvui-rpi-gtoewzg and prescription medicines only as told by [...] provider. Document Revised: 12/04/2021 Document Reviewed: 12/04/2021 Elsevier Patient Education 2022 [employer]. Follow Up Care 01/05/2023 13:14:43 With:BRITNI ENCINAS, CLAIRE Boswell, URL Address: [address] [place] [address] When:Within 8 Week(s) [facility] [employer] 08-22-2023 Miscellaneous Notes* Telephone Encounter - Constance [...] Team tab: Yes Patient appears on the [facility] SW Report for a PHQ-9 score of [...] as appropriate. JENNIE Lange documented in this encounterUniversity Hospitals Geauga Medical Center08-21-2023 History of Present illness Narrative* Jose Nichols DO - 01/19/2023 12:49 PM EDT Images from the original note were not included. [facility] Neurological [facility] - Medical Spine Initial [...] lumbar decompression and partial discectomy L4-5 at [facility] in [place] . Now follows with Pain Management in [place], [place]. Received opinion from his son's spine surgeon Dr. Farias in [place]. After review of imaging he was offered L4-S1 ALIF with posterior L4-S1 robotic assisted fusion. Since they do not live in [place] he was recommended to seek consultation at [facility]. Pain is located midline and bilateral low [...] spine interventions: -Lumbar procedures with [facility] Dr. Oliva. -RFA ordered following MBB #2 01/07/22 BL L2, L3, L4, L5 MBB - 95% relief same day 12/17/21 BL L2, L3, L4, L5 MBB - 90% relief x 1 hour, then 50% for a few hours -Lumbar injections in [place] prior to surgery. Had at least a few injections, including RFA, LESI, SIJ, he remembers one of the injections helping. Prior spine surgery: L4-5 Previously treated by: -Pain Management at [facility] in [place], [place], Dr. Barbara Farias on 07/07/22 virtual [...] See below Social: Home life: Moved to [place] 2020. Litigation: No Workers' Compensation: No YELLOW [...] reviewed 11/26/21 [facility] lumbar spine wo contrast[facility]: The bones of the lumbar [...] nerve root. 11/26/21 MRI prostate w/wo contrast, [facility]: Bones: No suspicious bony lesion. [...] 2023 TIME: 12:50 PM documented in this encounterUniversity Hospitals Geauga Medical Center08-18-2023 Miscellaneous Notes* Telephone Encounter - Julianna Yuan RN - 01/16/2023 8:13 AM EDT Left message on voicemail for patient to call office back or to read [employer] message. * Telephone Encounter - Julianna Yuan [...] calling: self Call patient at: at home [phone] (home) [phone] (cell) Was an appointment scheduled: No Closing statement: Results or non-symptom based questions: Thank you for calling [facility], your call will be returned within the next business day. Paul Cat documented in this encounterUniversity Hospitals Geauga Medical Center08-08-2023 Miscellaneous Notes* Telephone Encounter - Livier Barrera RN - 01/06/2023 8:13 AM EDT Please sign pended new order for Lumbar Spine MRI as it needs to state that it needs to be done with anesthesia. Thank you Livier Barrera RN documented in this encounterUniversity Hospitals Geauga Medical Center08-07-2023 Miscellaneous Notes* Telephone Encounter - Evelyn Chamberlain RN - 01/05/2023 4:52 PM EDT Spoke to patient's . Explained differences between anxiolysis and full anesthesia. Per patient's , patient needs full anesthesia-will not tolerate procedure with anxiolysis alone. Communicated to office that new order needs to be placed for MRI with anesthesia, and will need to be scheduled at [facility]. documented in this encounterUniversity Hospitals Geauga Medical Center07-05-2023 Hospital Discharge instructions Patient Education [...] to keep your urine pale yellow. ?Take umaj-hiq-vpjjdet or prescription medicines. ?Eat foods that are high in fiber, such as beans, whole grains, and fresh fruits and vegetables. ?Limit foods that are high in fat and processed sugars, such as fried or sweet foods. General instructions Take orbs-zkv-ejtcfyn and prescription medicines only as told by [...] the muscles that help control urination. Take vveb-yrp-pihuhie and prescription medicines only as told by your health care provider. Contact a health care provider if your symptoms do not improve or get worse. This information is not intended to replace advice given to you by your health care provider. Make sure you discuss any questions you have with your health care provider. Document Revised: 12/21/2020 Document Reviewed: 12/21/2020 [email or web address] Patient Education 2022 [email or web address] Follow Up Care 10/28/2022 10:11:31 With:CLAIRE JAMES PA-C, URL [address] [place] [address] When:Within 5 Week(s) [facility] 06-23-2023 Miscellaneous Notes* Telephone Encounter - [...] completed. This can only be completed at [facility] Main & orders must be revised to reflect such. Thanks, Kadi Cotton * Telephone Encounter - Kadi Cotton - 11/18/2022 2:17 PM EDT Per [facility] Neurosurgery, a more recent MRI is required before scheduling the patient to be seen. They are requesting new MRI orders to be placed before completing consult. Kadi Cotton documented in this encounterUniversity Hospitals Geauga Medical Center06-21-2023 History of Present illness Narrative* Elizabeth Freire APRN.CNP - 11/19/2022 12:22 PM EDT Yeseina Broussard was seen and examined by Dr. [...] cancer. Elizabeth Freire APRN.CNP documented in this encounterUniversity Hospitals Geauga Medical Center06-21-2023 Evaluation note* Diagnosis Prostate cancer (HCC) Malignant neoplasm of prostate Stage 3 chronic kidney disease, unspecified whether stage 3a or 3b CKD (HCC) documented in this encounter [facility]06-20-2023 Nurse Note* Nadja Guardado - 11/18/2022 2:34 PM EDT Clinical questionnaires incomplete due to Patient was roomed by provider documented in this encounterUniversity Hospitals Geauga Medical Center06-20-2023 Nurse Note* Livier Barrera RN - 11/18/2022 1:32 PM EDT AUA 21 Livier Barrera RN documented in this encounterUniversity Hospitals Geauga Medical Center06-20-2023 History of Present illness Narrative* Genoveva Nazario MD - 11/18/2022 1:15 PM EDT Radiation Oncology - Follow Up Note PATIENT NAME: Yesenia Broussard PATIENT DIAGNOSIS: Prostate adenocarcinoma, initial PSA 9.95, biopsy [place] score 3 + 4 = 7 (grade [...] ASSESSMENT/PLAN: Prostate adenocarcinoma, initial PSA 9.95, biopsy [place] score 3 + 4 = 7 (grade [...] Nazario MD cc: Shaikh Dotty [address] [place] [address] documented in this encounterMicheal Ville [address]-06-2023 Miscellaneous Notes* Telephone Encounter - STEPHANIE Lange [...] call back. JENNIE Lange documented in this encounterUniversity Hospitals Geauga Medical Center01-05-2023 Nurse Note* Kelly Hector - 06/05/2022 12:40 PM EST Back office UA test performed. Results entered in [employer] and doctor notified. Kelly Hector MA documented in this encounterUniversity Hospitals Geauga Medical Center12-15-2022 Miscellaneous Notes* Telephone Encounter - Diane Parada LPN - 05/15/2022 1:51 PM EST Nena, pt's , notified to have Dexter complete the Cipro prescription and have urine rechecked in 2-3 weeks. Call transferred to [facility] to schedule lab appt. Dr. Nazario, please sign pended lab orders. Diane Parada LPN documented in this encounterUniversity Hospitals Geauga Medical Center12-15-2022 NoteCONSULTATION CONSULTATION DATE: 05/15/2022 HISTORY [...] he has a son who lives in [place] with the same symptoms and gained relief after seeing a specialist and having surgery. Medications include Lyrica 75 mg t.i.d., [place] 5/325 t.i.d. and baclofen 10 mg q.h.s. [...] are going to spend three months in [place] with his son in early July and he wishes to see the specialist out there. I told him we would continue to medically manage him, which he does agree to. Patient will call the office for an appointment upon return from [place].[facility] [id number] History of Present illness Narrative* STEPHANIE Lange - 04/30/2022 3:01 PM EST SOCIAL WORK FOLLOW UP NOTE: [facility] Date of service:04/30/22 TOPICS ADDRESSED: community resources PLAN: Continue follow up as needed Assigned SW listed in Care Team tab: Yes SW completed and faxed a mileage reimbursement log to [facility] for the month of April 2022. JENNIE Lange documented in this encounterUniversity Hospitals Geauga Medical Center11-23-2022 History of Present illness Narrative* Genoveva Nazario MD - 04/23/2022 12:00 AM EST [facility] Radiation Oncology Department RADIATION ONCOLOGY - COMPLETION NOTE PATIENT: YESENIA BROUSSARD: 1945 DATES OF TREATMENT: 03/18/2022- 04/23/2022 DIAGNOSIS: Prostate adenocarcinoma, initial PSA 9.95, biopsy [place] score 3 + 4 = 7 (grade [...] follow-up. Staff Physician Jose Nazario M.D. / WST 23:35 PM documented in this encounterUniversity Hospitals Geauga Medical Center11-21-2022 History of Present illness Narrative* Genoveva Nazario MD - 04/21/2022 3:23 PM EST genoveva Radiation Oncology - On Treatment Review (OTR) Note PATIENT NAME: Yesenia Broussard PATIENT DIAGNOSIS: Prostate adenocarcinoma, initial PSA 9.95, biopsy [place] score 3 + 4 = 7 (grade [...] treatment. Genoveva Nazario MD documented in this encounterUniversity Hospitals Geauga Medical Center11-14-2022 History of Present illness Narrative* Genoveva Nazario [...] outlined. Genoveva Nazario MD documented in this encounterUniversity Hospitals Geauga Medical Center11-07-2022 History of Present illness Narrative* Genoveva Nazario [...] outlined. Genoveva Nazario MD documented in this encounterUniversity Hospitals Geauga Medical Center10-31-2022 History of Present illness Narrative* Genoveva Nazario MD - 03/31/2022 3:29 PM EDT Radiation Oncology - On Treatment Review (OTR) Note PATIENT NAME: Yesenia Broussard PATIENT DIAGNOSIS: Prostate adenocarcinoma, initial PSA 9.95, biopsy [place] score 3 + 4 = 7 (grade [...] outlined. Genoveva Nazario MD documented in this encounterUniversity Hospitals Geauga Medical Center10-31-2022 History of Present illness Narrative* [...] March 2022. JENNIE Lange documented in this encounterUniversity Hospitals Geauga Medical Center10-27-2022 Nurse Note* Livier Barrera RN [...] assist. Livier Barrera RN documented in this encounterUniversity Hospitals Geauga Medical Center10-24-2022 History of Present illness Narrative* Genoveva Naazrio MD - 03/24/2022 4:00 PM EDT Radiation [...] outlined. Genoveva Nazario MD documented in this encounterUniversity Hospitals Geauga Medical Center10-18-2022 History of Present illness Narrative* Genoveva Nazario [...] prescribed. Genoveva Nazario MD documented in this encounterUniversity Hospitals Geauga Medical Center10-18-2022 Miscellaneous Notes* Telephone Encounter - Diane Parada LPN - 03/18/2022 8:31 AM EDT CBC order the second week during radiation is pending your approval. Diane Parada LPN documented in this encounterUniversity Hospitals Geauga Medical Center10-13-2022 NoteCONSULTATION PROCEDURE DATE: 03/13/2022 PREOPERATIVE [...] the procedure well with no overt complications.[facility] [id number] NoteCONSULTATION CONSULTATION DATE: 03/13/2022 HISTORY OF PRESENT [...] current medications include Lyrica 75 mg t.i.d., [place] 5/325 t.i. d., baclofen 10 mg q.h.s. [...] and will return in six weeks' time.[facility] [id number] History of Present illness Narrative* STEPHANIE Lange [...] as appropriate. JENNIE Lange documented in this encounterUniversity Hospitals Geauga Medical Center10-12-2022 History of Present illness Narrative* Genoveva Nazario MD - 03/12/2022 12:00 AM EDT YESENIA BROUSSARD [id number] 03/12/2022 [facility] Department of Radiation Oncology Treatment Planning Note [...] Nazario M.D. 21:57 PM documented in this encounterUniversity Hospitals Geauga Medical Center10-04-2022 Miscellaneous Notes* Telephone Encounter - [...] as appropriate. JENNIE Lange documented in this encounterUniversity Hospitals Geauga Medical Center10-03-2022 History of Present illness Narrative* Genoveva Nazario MD - 03/03/2022 10:42 AM EDT Unable to complete simulation due to anxiety related to claustrophobia. Prescription for Valium given. We will reschedule. documented in this encounterUniversity Hospitals Geauga Medical Center09-27-2022 Miscellaneous Notes* Telephone Encounter - Margaret Mcpherson Sec - 02/25/2022 2:09 PM EDT Patient is scheduled for Thursday patient could not come any other day due to being out of town at the end of the week 8:00AM thursday * Telephone Encounter - Margaret Mcpherson Sec - 02/25/2022 9:23 AM EDT [...] take him to the eye doctor this aargentina Robles: Will you please call and reschedule SIM? Thanks Diane Parada LPN documented in this encounterUniversity Hospitals Geauga Medical Center09-12-2022 Miscellaneous Notes* Telephone Encounter - [...] Thanks Maddy Waite MA documented in this encounterUniversity Hospitals Geauga Medical Center08-25-2022 NoteCONSULTATION CONSULTATION DATE: 01/23/2022 HISTORY OF PRESENT [...] ice. Medications include baclofen 10 mg q.h.s., [place] 5/325 t.i.d., Lyrica 75 mg b.i.d. Patient's [...] followed up in the clinic post procedure.[facility] [id number] Miscellaneous Notes* Telephone Encounter - Diane JAH Parada - 12/30/2021 10:23 AM EDT Nena called [...] AM EDT I left a message for Nean to call the office. Diane Parada LPN [...] advise. Diane Parada LPN documented in this encounterUniversity Hospitals Geauga Medical Center07-28-2022 NoteCONSULTATION CONSULTATION DATE: 12/26/2021 HISTORY [...] His medications include baclofen 10 mg q.h.s., [place] 5/325 t.i.d. and Lyrica 50 mg b.i.d. [...] and he is in agreement to this.The [place] [address]-12-2022 Nurse Note* Diane Parada LPN - 12/10/2021 9:20 AM EDT AUA= 10 documented in this encounterUniversity Hospitals Geauga Medical Center07-12-2022 History of Present illness Narrative* Genoveva Nazario MD - 12/10/2021 9:00 AM EDT Radiation Oncology - Prostate Cancer New Patient/Consult Note PATIENT NAME: Yesenia Broussard PATIENT REQUESTING PROVIDER: Dr. Johnston DIAGNOSIS: 76 year old male with prostate adenocarcinoma, initial PSA 9.95, biopsy [place] score 3 + 4 = 7 (grade [...] underwent TURP on 06/06/2021. Pathology demonstrating adenocarcinoma, [place] 7 (3+4), involving 21 to 30% of [...] MD cc: Shaikh Dotty [address] [place] [address] Barbara Johnston [address] [place] [address] documented in this encounterUniversity Hospitals Geauga Medical Center06-06-2022 Evaluation + Plan note Diagnostic Tests Pending * PSA Total 11/04/21 [facility] 06-06-2022 Hospital Discharge instructions Patient Education [...] 05/18/2006 Document Revised: 02/04/2019 Document Reviewed: 04/17/2017 [email or web address] Patient Education 2020 [employer]. 11/04/2021 10:39:39 Benign Prostatic Hyperplasia Benign Prostatic [...] urethra. Follow these instructions at home: Take fhsl-ppy-brnxagi and prescription medicines only as told by [...] 05/18/2006 Document Revised: 04/12/2019 Document Reviewed: 06/22/2017 [email or web address] Patient Education 2020 [employer]. 11/04/2021 10:39:34 Prostate Cancer Prostate Cancer The [...] who: Are older than age 65. Are -Kitt[place]. Are obese. Have a family history of [...] cells. Follow these instructions at home: Take zicw-nkz-wrnybnk and prescription medicines only as told by [...] 05/18/2006 Document Revised: 04/30/2018 Document Reviewed: 01/26/2017 [email or web address] Patient Education 2020 [employer]. Follow Up Care 07/01/2021 09:43:21 With:PRESTON MAK, Barbara Warner, URL Address: [facility] [address], [place] [phone] When: Unknown Comments:Will schedule MRI of prostate w/wo and Perineal prostate biopsy. [facility] 05-26-2022 Evaluation note* Encounter Date Diagnosis Assessment [...] statins. Monitor LFTs and lipid profile periodically. [employer] Other Evaluation + Plan note Future Appointments Appointment Date:01/06/2023 09:15:00 AM Scheduled Provider:CLAIRE JAMES PA-C Location:[facility] Appointment Type:URO Office Visit [facility] evaluation + Plan note Future Appointments Appointment Date:04/21/2023 08:30:00 AM Scheduled Provider:CLAIRE JAMES PA-C Location:[facility] Appointment Type:URO Office Visit [facility] evaluation + Plan note Future Appointments Appointment Date:07/07/2023 09:00:00 AM Scheduled Provider:CLAIRE JAMES PA-C Location:[facility] Appointment Type:URO Office Visit Diagnostic Tests Pending * Electrolyte Panel 04/21/23 [facility] evaluation + Plan note Future Appointments Appointment Date:07/07/2023 09:00:00 AM Scheduled Provider:CLAIRE JAMES PA-C Location:[facility] Appointment Type:URO Office Visit Diagnostic Tests Pending * [facility] Appointment Date:04/01/2024 10:45:00 AM Scheduled Provider:Barbara JOHNSTON MD Location:[facility] Appointment Type:URO Office Visit Diagnostic Tests Pending * PSA Total 12/31/23 [facility] evaluation + Plan note Future Appointments Appointment Date:04/18/2024 12:45:00 PM Scheduled Provider:Barbara JOHNSTON MD Location:[facility] Appointment Type:URO Office Visit Diagnostic Tests Pending * Urine Culture 04/07/24 [facility] evaluation + Plan note Future Appointments Appointment Date:04/18/2024 12:45:00 PM Scheduled Provider:Barbara JOHNSTON MD Location:[facility] Appointment Type:URO Office Visit [facility] evaluation + Plan note Future Appointments Appointment Date:04/21/2025 10:15:00 AM Scheduled Provider:Barbara JOHNSTON MD Location:[facility] Appointment Type:URO Office Visit Diagnostic Tests Pending * PSA Total 04/18/24 [facility] evaluation + Plan note Future Appointments Appointment Date:04/21/2025 10:15:00 AM Scheduled Provider:Barbara JOHNSTON MD Location:[facility] Appointment Type:URO Office Visit Diagnostic Tests Pending * Urine Culture 08/08/24 [facility] evaluation + Plan note Future Appointments Appointment Date:04/21/2025 10:15:00 AM Scheduled Provider:Barbara JOHNSTON MD Location:[facility] Appointment Type:URO Office Visit Diagnostic Tests Pending * Urine Culture 08/22/24 [facility] evaluation + Plan note Future Appointments Appointment Date:04/21/2025 10:15:00 AM Scheduled Provider:Barbara JOHNSTON MD Location:[facility] Appointment Type:URO Office Visit Diagnostic Tests Pending * Urine Cytology ([facility]) 08/29/24 [facility] Evaluation note* Diagnosis Malignant neoplasm of prostate (HCC)- Primary Malignant neoplasm of prostate documented in this encounter [facility]* Diagnosis Malignant neoplasm of prostate (HCC)- Primary Malignant neoplasm of prostate documented in this encounter [facility]* Diagnosis Malignant neoplasm of prostate (HCC)- Primary Malignant neoplasm of prostate documented in this [facility]* Diagnosis Malignant neoplasm of prostate (HCC)- Primary Malignant neoplasm of prostate documented in this encounter [facility]* Diagnosis Malignant neoplasm of prostate (HCC) Malignant neoplasm of prostate documented in this encounter [facility]* Diagnosis Malignant neoplasm of prostate (HCC)- Primary Malignant neoplasm of prostate documented in this encounter [facility]* Diagnosis Malignant neoplasm of prostate (HCC)- Primary Malignant neoplasm of prostate documented in this encounter [facility]Eval[facility]* Diagnosis Malignant neoplasm of prostate (HCC)- Primary Malignant neoplasm of prostate documented in this encounter [facility] CenterEvaludel[facility] noteNo assessment information availableMedina Hospital Work Phone: Evaluation note* Diagnosis Hematuria, unspecified type- Primary Malignant neoplasm of prostate (HCC) Malignant neoplasm of prostate documented in this encounter [facility]Eval[facility]* Diagnosis Urinary tract infection without hematuria, site unspecified- Primary documented in this encounter [facility]Eval[facility] note* Diagnosis History of prostate cancer- Primary Personal history of malignant neoplasm of prostate Spinal arthritis Spondylosis of unspecified site without mention of myelopathy Spinal stenosis of lumbar region, unspecified whether neurogenic claudication present documented in this encounter [facility] CenterEval[facility] note* Diagnosis Spinal stenosis of lumbar region without neurogenic claudication- Primary Spinal stenosis, lumbar region, without neurogenic claudication documented in this encounter [facility]Eval[facility]el[facility] note* Diagnosis Spinal stenosis of lumbar region, unspecified whether neurogenic claudication present- Primary documented in this encounter [facility] CenterEvaludelaware [facility] chron[facility] note* Diagnosis Spinal stenosis, lumbar region with neurogenic claudication- Primary [place]aminal stenosis of lumbar region Spinal stenosis, lumbar region, without neurogenic claudication Peripheral artery disease (HCC) Peripheral vascular disease, unspecified Prostate cancer (HCC) Malignant neoplasm of prostate documented in this encounter [facility] noteNo Mission Bicycle CompanyCleveland [employer] Other Evaluation note* Diagnosis Spinal stenosis, lumbar region with neurogenic claudication- Primary [place] stenosis of lumbar region Spinal stenosis, lumbar region, without neurogenic claudication documented in this encounter [facility]* Diagnosis Spondylolisthesis of lumbar region- Primary Acquired spondylolisthesis documented in this encounter [facility] note* Diagnosis Hypertension, unspecified type Mixed hyperlipidemia Bilateral carotid artery disease, unspecified type ([facility]/HCC) History of [place] (myocardial infarction) Old myocardial infarction BMI 28.0-28.9,adult ASHD (arteriosclerotic heart disease) Coronary atherosclerosis of unspecified type of vessel, [place] or graft PVD (peripheral vascular disease) ([facility]/FORM[facility]LY [facility]) Unspecified peripheral vascular disease Smoker Tobacco use disorder Chest pain, unspecified type documented in this encounter [facility] Work Phone: Evaluation note* Diagnosis Onset Date Resolution Status Current every day smoker acu te PAD (peripheral artery disease) [facility] Work Phone: Evaluation note* Diagnosis Onset Date Resolution Status Anemia of renal disease acut e CKD (chronic kidney disease) stage 3, GFR 30-59 ml/min acute [id number] acute Secondary hyperparathyroidism acute UTI (urinary tract infection) [facility] Work Phone: Evaluation note* Diagnosis Primary [...] neoplasm of prostate Coronary artery disease involving [place] coronary artery of [place] heart without angina pectoris (CMS/HCC) H/O prostate cancer Mixed hyperlipidemia (CMS/HCC) Mixed hyperlipidemia Chronic bilateral low back pain with bilateral sciatica Coronary artery disease involving [place] coronary artery of [place] heart without angina pectoris (CMS/HCC)- Primary PAD (peripheral artery disease) (CMS/HCC) Unspecified peripheral vascular disease Primary hypertension (CMS/HCC) Unspecified essential hypertension Stage 3a chronic kidney disease (HCC) (CMS/HCC) Lumbar stenosis with neurogenic claudication Mixed hyperlipidemia (CMS/HCC) Mixed hyperlipidemia Elevated random blood glucose level Unintentional weight change Gastroesophageal reflux disease without esophagitis Esophageal reflux Coronary artery disease involving [place] coronary artery of [place] heart without angina pectoris (CMS/HCC)- Primary Stage 3a chronic kidney disease (HCC) (CMS/HCC) Lumbar stenosis with neurogenic claudication Primary hypertension (CMS/HCC)- Primary Unspecified essential hypertension Coronary artery disease involving [place] coronary artery of [place] heart without angina pectoris (CMS/HCC) Stage 3a [...] disease (HCC) (CMS/HCC) [facility] Diagnosis Primary hypertension (CMS/HCC)- Primary Unspecified essential hypertension Coronary artery disease involving [place] coronary artery of [place] heart without angina pectoris (CMS/HCC) Stage 3a chronic kidney disease (HCC) (CMS/HCC) Gastroesophageal reflux disease without esophagitis Esophageal reflux Tobacco abuse Tobacco use disorder Prostate cancer (CMS/HCC) Malignant neoplasm of prostate Benign prostatic hyperplasia with lower urinary tract symptoms, symptom details unspecified [facility] Diagnosis Primary hypertension ([facility]/HCC) Unspecified essential hypertension [facility] Diagnosis Onset Date Resolution Status Admit Date Anemia of renal disease acute M 2024 10:35am CKD (chronic kidney disease) stage 3, GFR 30-59 ml/min acute August 15, 2024 10:35am Hypertensive chronic kidney disease with stage 1 through stage 4 chronic ki acute August 15, 2024 10:35am Microscopic hematuria acute Jul 10:35am Secondary hyperparathyroidism acute August 15, 2024 10:35am [facility] Work Phone: Evaluation note* Diagnosis Mixed hyperlipidemia- Primary Bilateral carotid artery disease, unspecified type Hypertension, unspecified type BMI 28.0-28.9,adult Smoker Tobacco use disorder Prostate cancer (Multi) Malignant neoplasm of prostate Chronic kidney disease, stage 3b (Multi) ASHD (arteriosclerotic heart disease) Coronary atherosclerosis of unspecified type of vessel, [place] or graft PVD (peripheral vascular disease) ([facility]-HCC) Unspecified peripheral vascular disease documented in this encounter [facility] Work Phone: Evaluation note* Diagnosis Onset Date Resolution Status Admit Date Anemia of renal disease acute S eptemb2024 11:31am CKD (chronic kidney disease) stage 3, GFR 30-59 ml/min acute Sept2024 11:31am Hypertensive chronic kidney disease with stage 1 through stage 4 chronic ki acute January 11:31am Microscopic hematuria acute Jan 11:31am Secondary hyperparathyroidism acute February 20, 2025 11:31am [facility] Work Phone: History general Narrative - [...] History PROSTATE SURGERY Hospitalization History SEE ABOVE [facility] Other History general Narrative - Reported* Type [...] ANGIOPLASTY LT 03/2023 Hospitalization History SEE ABOVE [facility] Other Hospital course Narrative No data available for this section [facility] Discharge instructions No data available for this section [facility] No data available for this section [facility] (narrative)* Consultation (Routine) - Authorized Specialty Diagnoses / Procedures Referred By Contac t Referred To Contact Cardiology Diagnoses Hypertension, unspecified type Mixed hyperlipidemia Bilateral carotid artery disease, unspecified type (CMS/HCC) Procedures Follow Up In Cardiology Chaim Grayson, [address] [facility] [address], [address] [place], [place] [id number] Chaim Grayson, [address] [facility] [address], [address] [place], [place] [id number] Referral ID Status Reason Start Date Expiration Date V isits Requested Visits Authorized [id number] Authorized 06/04/2023 06/03/2024 1 1 * Cardiovascular (Routine) - Pending Review Specialty Diagnoses / Procedures Referred By Contac t Referred To Contact Diagnoses Mixed hyperlipidemia Bilateral carotid artery disease, unspecified type (CMS/HCC) Procedures ECG 12 Lead Chaim Grayson DO [address] [facility] [address], [place] [id number] Referral ID Status Reason Start Date Expiration Date V isits Requested Visits Authorized [id number] Pending Review 06/04/2023 06/03/2024 1 1 * Consultation (Routine) - Authorized Specialty Diagnoses / Procedures Referred By Contac t Referred To Contact Cardiology Diagnoses Hypertension, unspecified type Bilateral carotid artery disease, unspecified type (CMS/HCC) Procedures Follow Up In Cardiology Chaim Grayson DO [address] [facility] [address], [address] [address] Referral ID Status Reason Start Date Expiration Date V isits Requested Visits Authorized [id number] Authorized 06/04/2023 06/03/2024 1 1 * Cardiac Stress Testing (Routine) - Pending Review Specialty Diagnoses / Procedures Referred By Renata t Referred To Contact Radiology Diagnoses Hypertension, unspecified type Bilateral carotid artery disease, unspecified type (CMS/HCC) Chest pressure Procedures Nuclear Stress Test CHG MYOCARDIAL SPECT MULTIPLE STUDIES CHG MYOCARDIAL SPECT SINGLE STUDY AT REST OR STRESS Chaim Grayson DO [address] [facility] [address], [address] [place] [address] Referral ID Status Reason Start Date Expiration Date V isits Requested Visits Authorized [id number] Pending Review 06/04/2023 06/03/2024 5 5 [facility] Work Phone: Reason for referral (narrative)* Consultation (Routine) - Pending Review Specialty Diagnoses / Procedures Referred By Renata staton Referred To Contact Urology Diagnoses Prostate cancer (CMS/HCC) Benign prostatic hyperplasia with lower urinary tract symptoms, symptom details unspecified Procedures MO OFFICE/OUTPATIENT NEW HIGH MDM 60 MINUTES Nasir Ward NP [address] [place] [address] Travis Bryant MD [address] [place] [address] Referral ID Status Reason Start Date Expiration Date Visits Requested Visits Authorized [id number] Pending Review Specialty Services Required 01/20/2024 07/18/2024 1 1 Scheduling Instructions Please include OV note from today and from Dr. Johnston office [facility] for referral (narrative)No reason for referral information [facility] Work Phone: Summary Purpose Family History [...] kidney disease) stage 3, GFR 30-59 ml/min [id number] Secondary hyperparathyroidism UTI (urinary tract infection) Chief [...] artery disease, unspecified type (CMS/HCC) History of [place] (myocardial infarction) ASHD (arteriosclerotic heart disease) PVD (peripheral vascular disease) ([facility]) Chest pain, unspecified type Procedures ECG 12 Lead Chaim Grayson, DO [address] [facility] [address], [address] [place] [id number] Referral ID Status Reason Start Date Expiration Date V isits Requested Visits Authorized [id number] Authorized 08/18/2023 08/17/2024 1 1 Specialty Diagnoses / Procedures Referred By Contac t Referred To Contact Cardiology Diagnoses Bilateral carotid artery disease, unspecified type ([facility]) Procedures Follow Up In Cardiology Chaim Grayson, DO [address] [facility] [address], [address] [place] [address] Chaim Grayson, DO [address] [facility] [address], [facility] [address] [place] [address] Referral ID Status Reason Start Date Expiration Date V isits Requested Visits Authorized [id number] Authorized 08/18/2023 08/17/2024 1 1 Specialty Diagnoses / Procedures Referred By Contac t Referred To Contact [facility] [place] Diagnoses Spondylolisthesis of lumbar region Procedures CONSULT TO [facility] ([facility]IN) OFFICE/OUTPATIENT [facility] 60 MINUTES Kodi Reynolds MD [address] [place], [place] [id number] Referral ID Status Reason Start Date Expiration Date Visits Requested Visits Authorized [id number] Pending Review PCP Requested Referral 06/12/2023 06/11/2024 1 1 Specialty Diagnoses / Procedures Referred By Contac t Referred To Contact Diagnoses Spinal stenosis, lumbar region with neurogenic claudication Foraminal stenosis of lumbar region Procedures CONSULT TO SPINE SURGERY OFFICE/OUTPATIENT [facility] MDM 60-74 MINUTES Jose Nichols DO [address] [place] [address] Referral ID Status Reason Start Date Expiration Date Visits Requested Visits Authorized [id number] Pending Review PCP Requested Referral 05/18/2024 1 1 Specialty Diagnoses / Procedures Referred By Contac t Referred To Contact MR IMAGING Diagnoses Spinal stenosis of lumbar region, unspecified whether neurogenic claudication present Procedures MRI LUMBAR SPINE WO/W IVCON MRI SPINAL CANAL LUMBAR W/O & W/CONTR MATRL Genoveva Nazario MD [address] [place] [address] [place] [address] Mr Imaging Referral ID Status Reason Start Date Expiration Date Visits Requested Visits Authorized [id number] Pending Review Auto-Generat ed Referral 11/19/2022 12/19/2023 1 1 Specialty Diagnoses / Procedures Referred By Contac t Referred To Contact Neurosurgery Diagnoses Spinal arthritis Procedures CONSULT TO NEUROSURGERY OFFICE/OUTPATIENT [facility] 60-74 MINUTES Genoveva Nazario MD [address] [place] [address] [place] [address] Referral ID Status Reason Start Date Expiration Date Visits Requested Visits Authorized [id number] Pending Review PCP Requested Referral 11/18/2022 11/18/2023 [...] section and content) DATE CREATED AUTHOR 06/12/2021 [facility] DATE CREATED AUTHOR AUTHOR'S ORGANIZ ATION 03/27/2022 [facility] DATE CREATED AUTHOR AUTHOR'S ORGANIZ ATION 11/07/2022 [facility] DATE CREATED AUTHOR AUTHOR'S ORGANIZ ATION 01/06/2023 [facility] DATE CREATED AUTHOR AUTHOR'S ORGANIZ ATION 06/16/2023 [facility] DATE CREATED AUTHOR AUTHOR'S ORGANIZ ATION 06/29/2023 [facility] DATE CREATED AUTHOR AUTHOR'S ORGANIZ ATION 08/17/2023 [facility] DATE CREATED AUTHOR AUTHOR'S ORGANIZ ATION 04/11/2024 [facility] DATE CREATED AUTHOR AUTHOR'S ORGANIZ ATION 04/21/2024 [facility] DATE CREATED AUTHOR AUTHOR'S ORGANIZ ATION 07/15/2024 [facility] DATE CREATED AUTHOR AUTHOR'S ORGANIZ ATION 08/15/2024 [facility] DATE CREATED AUTHOR AUTHOR'S ORGANIZ ATION 08/26/2024 [facility] DATE CREATED AUTHOR AUTHOR'S ORGANIZ ATION 08/30/2024 [facility] DATE CREATED AUTHOR AUTHOR'S ORGANIZ ATION 01/19/2025 [facility] DATE CREATED AUTHOR AUTHOR'S ORGANIZ ATION 02/21/2025 [facility] DATE CREATED AUTHOR AUTHOR'S ORGANIZ ATION 03/04/2025 [facility] DATE CREATED AUTHOR AUTHOR'S ORGANIZ ATION 03/06/2025 [facility] DATE CREATED AUTHOR AUTHOR'S ORGANIZ ATION 03/06/2025 [facility] DATE CREATED AUTHOR AUTHOR'S ORGANIZ ATION 03/09/2025 [facility] DATE CREATED AUTHOR AUTHOR'S ORGANIZ ATION 03/11/2025 [facility] Ambulatory REASON FOR VISIT (unrecogniz ed section and [...] Pain Specialty Diagnoses / Procedures Referred By Renata t Referred To Contact Neurosurgery Diagnoses Spinal arthritis Procedures CONSULT TO NEUROSURGERY OFFICE/OUTPATIENT NEW HIGH MDM 60-74 MINUTES Genoveva Nazario MD [address] [place] [address] [place] [address] Referral ID Status Reason Start Date Expiration Date Visits Requested Visits Authorized [id number] Pending Review PCP Requested Referral 11/18/2022 11/18/2023 1 1 Reason Comments Appointment Confirmation Reason Comments Establish Care Fawwad pvd HTN abn e kg Specialty Diagnoses / Procedures Referred By Contac t Referred To Contact Diagnoses Mixed hyperlipidemia Bilateral carotid artery disease, unspecified type (CMS/HCC) Procedures ECG 12 Lead Chaim Grayson, [address] [place] [address] [address], [address] [address] Referral ID Status Reason Start Date Expiration Date V isits Requested Visits Authorized [id number] Pending Review 06/04/2023 06/03/2024 1 1 Reason Comments Low Back Pain New Patient Evaluation New Patient Specialty Diagnoses / Procedures Referred By Contac t Referred To Contact Radiology Diagnoses Hypertension, unspecified type Bilateral carotid artery disease, unspecified type (CMS/HCC) Chest pressure Procedures Nuclear Stress Test CHG MYOCARDIAL SPECT MULTIPLE STUDIES CHG MYOCARDIAL SPECT SINGLE STUDY AT REST OR STRESS Chaim Grayson, [address], [address] [address] Referral ID Status Reason Start Date Expiration Date V isits Requested Visits Authorized [id number] Authorized 06/04/2023 06/03/2024 5 5 Reason Comments Follow-up 1yr Specialty Diagnoses / Procedures Referred By Contac t Referred To Contact Cardiology Diagnoses Hypertension, unspecified type Mixed hyperlipidemia Bilateral carotid artery disease, unspecified type (CMS/HCC) Procedures Follow Up In Cardiology Chaim Grayson, [address] [place] [address] 2, [address] [address] Chaim Grayson, [address] [place] [address] 2, [address] [address] Referral ID Status Reason Start Date Expiration Date V isits Requested Visits Authorized [id number] Authorized 06/04/2023 06/03/2024 1 1 Reason Comments Prostate Cancer Specialty Diagnoses / Procedures Referred By Contac t Referred To Contact Radiation Oncology / RADIATION ONCOLOGY Diagnoses Malignant neoplasm of prostate jeovany treating prostate Procedures SIMULATION [place] IMRT 28fractions Genoveva Nazario MD [address] [place] [address] [place] [address] Genoveva Nazario MD [address] [place] [address] [place] [address] Referral ID Status Reason Start Date Expiration Date Visits Re quested Visits Authorized [id number] Closed 02/25/2022 06/20/2022 29 29 Reason Comments Med Refill Reason Onset Date Comments Med Refill 02/02/2024 Reason Onset Date Comments Med Refill 02/18/2024 Reason Comments Follow-up Reason Comments Annual Exam 1y Follow up for Cor onary Artery Disease Specialty Diagnoses / Procedures Referred By Renata t Referred To Contact Cardiology Diagnoses Bilateral carotid artery disease, unspecified type Procedures Follow Up In Cardiology Chaim Grayson, DO [address] [facility] [address], [address] [place] [address] Phone: tel: fax: Chaim Grayson, DO [address] [facility] [address], [address] [address] Phone: tel: fax: Referral ID Status Reason Start Date Expiration Date V isits Requested Visits Authorized [id number] Authorized 08/18/2023 08/17/2024 1 1 Reason Onset [...] or prosecute any alcohol or drug abuse patient.[facility] Center[facility] the event this information is protected by the Federal Confidentiality of Alcohol and Drug Abuse Patient Records regulations: The Federal rules restrict any use of the information to criminally investigate or prosecute any alcohol or drug abuse patient.[facility] CenterIn the event this information is protected by the Federal Confidentiality of Alcohol and Drug Abuse Patient Records regulations: The Federal rules restrict any use of the information to criminally investigate or prosecute any alcohol or drug abuse patient.[facility] CenterIn the event this information is protected by the Federal Confidentiality of Alcohol and Drug Abuse Patient Records regulations: The Federal rules restrict any use of the information to criminally investigate or prosecute any alcohol or drug abuse patient.[facility] CenterIn the event this information is protected by the Federal Confidentiality of Alcohol and Drug Abuse Patient Records regulations: The Federal rules restrict any use of the information to criminally investigate or prosecute any alcohol or drug abuse patient.[facility] CenterIn the event this information is protected by the Federal Confidentiality of Alcohol and Drug Abuse Patient Records regulations: The Federal rules restrict any use of the information to criminally investigate or prosecute any alcohol or drug abuse patient.[facility] CenterIn the event this information is protected by the Federal Confidentiality of Alcohol and Drug Abuse Patient Records regulations: The Federal rules restrict any use of the information to criminally investigate or prosecute any alcohol or drug abuse patient.[facility] CenterIn the event this information is protected by the Federal Confidentiality of Alcohol and Drug Abuse Patient Records regulations: The Federal rules restrict any use of the information to criminally investigate or prosecute any alcohol or drug abuse patient.[facility] CenterIn the event this information is protected by the Federal Confidentiality of Alcohol and Drug Abuse Patient Records regulations: The Federal rules restrict any use of the information to criminally investigate or prosecute any alcohol or drug abuse patient.[facility] CenterIn the event this information is protected by the Federal Confidentiality of Alcohol and Drug Abuse Patient Records regulations: The Federal rules restrict any use of the information to criminally investigate or prosecute any alcohol or drug abuse patient.[facility] CenterIn the event this information is protected by the Federal Confidentiality of Alcohol and Drug Abuse Patient Records regulations: The Federal rules restrict any use of the information to criminally investigate or prosecute any alcohol or drug abuse patient.[facility] CenterIn the event this information is protected by the Federal Confidentiality of Alcohol and Drug Abuse Patient Records regulations: The Federal rules restrict any use of the information to criminally investigate or prosecute any alcohol or drug abuse patient.[facility] CenterIn the event this information is protected by the Federal Confidentiality of Alcohol and Drug Abuse Patient Records regulations: The Federal rules restrict any use of the information to criminally investigate or prosecute any alcohol or drug abuse patient.[facility] CenterIn the event this information is protected by the Federal Confidentiality of Alcohol and Drug Abuse Patient Records regulations: The Federal rules restrict any use of the information to criminally investigate or prosecute any alcohol or drug abuse patient.[facility] CenterIn the event this information is protected by the Federal Confidentiality of Alcohol and Drug Abuse Patient Records regulations: The Federal rules restrict any use of the information to criminally investigate or prosecute any alcohol or drug abuse patient.[facility] CenterIn the event this information is protected by the Federal Confidentiality of Alcohol and Drug Abuse Patient Records regulations: The Federal rules restrict any use of the information to criminally investigate or prosecute any alcohol or drug abuse patient.[facility] CenterIn the event this information is protected by the Federal Confidentiality of Alcohol and Drug Abuse Patient Records regulations: The Federal rules restrict any use of the information to criminally investigate or prosecute any alcohol or drug abuse patient.[facility] CenterIn the event this information is protected by the Federal Confidentiality of Alcohol and Drug Abuse Patient Records regulations: The Federal rules restrict any use of the information to criminally investigate or prosecute any alcohol or drug abuse patient.[facility] CenterIn the event this information is protected by the Federal Confidentiality of Alcohol and Drug Abuse Patient Records regulations: The Federal rules restrict any use of the information to criminally investigate or prosecute any alcohol or drug abuse patient.[facility] CenterIn the event this information is protected by the Federal Confidentiality of Alcohol and Drug Abuse Patient Records regulations: The Federal rules restrict any use of the information to criminally investigate or prosecute any alcohol or drug abuse patient.[facility] CenterIn the event this information is protected by the Federal Confidentiality of Alcohol and Drug Abuse Patient Records regulations: The Federal rules restrict any use of the information to criminally investigate or prosecute any alcohol or drug abuse patient.[facility] CenterIn the event this information is protected by the Federal Confidentiality of Alcohol and Drug Abuse Patient Records regulations: The Federal rules restrict any use of the information to criminally investigate or prosecute any alcohol or drug abuse patient.[facility] CenterIn the event this information is protected by the Federal Confidentiality of Alcohol and Drug Abuse Patient Records regulations: The Federal rules restrict any use of the information to criminally investigate or prosecute any alcohol or drug abuse patient.[facility] CenterIn the event this information is protected by the Federal Confidentiality of Alcohol and Drug Abuse Patient Records regulations: The Federal rules restrict any use of the information to criminally investigate or prosecute any alcohol or drug abuse patient.[facility] CenterIn the event this information is protected by the Federal Confidentiality of Alcohol and Drug Abuse Patient Records regulations: The Federal rules restrict any use of the information to criminally investigate or prosecute any alcohol or drug abuse patient.[facility] CenterIn the event this information is protected by the Federal Confidentiality of Alcohol and Drug Abuse Patient Records regulations: The Federal rules restrict any use of the information to criminally investigate or prosecute any alcohol or drug abuse patient.[facility] CenterIn the event this information is protected by the Federal Confidentiality of Alcohol and Drug Abuse Patient Records regulations: The Federal rules restrict any use of the information to criminally investigate or prosecute any alcohol or drug abuse patient.[facility] CenterIn the event this information is protected by the Federal Confidentiality of Alcohol and Drug Abuse Patient Records regulations: The Federal rules restrict any use of the information to criminally investigate or prosecute any alcohol or drug abuse patient.[facility] CenterIn the event this information is protected by the Federal Confidentiality of Alcohol and Drug Abuse Patient Records regulations: The Federal rules restrict any use of the information to criminally investigate or prosecute any alcohol or drug abuse patient.[facility] CenterIn the event this information is protected by the Federal Confidentiality of Alcohol and Drug Abuse Patient Records regulations: The Federal rules restrict any use of the information to criminally investigate or prosecute any alcohol or drug abuse patient.[facility] CenterIn the event this information is protected by the Federal Confidentiality of Alcohol and Drug Abuse Patient Records regulations: The Federal rules restrict any use of the information to criminally investigate or prosecute any alcohol or drug abuse patient.[facility] CenterIn the event this information is protected by the Federal Confidentiality of Alcohol and Drug Abuse Patient Records regulations: The Federal rules restrict any use of the information to criminally investigate or prosecute any alcohol or drug abuse patient.[facility] CenterIn the event this information is protected by the Federal Confidentiality of Alcohol and Drug Abuse Patient Records regulations: The Federal rules restrict any use of the information to criminally investigate or prosecute any alcohol or drug abuse patient.[facility] CenterIn the event this information is protected by the Federal Confidentiality of Alcohol and Drug Abuse Patient Records regulations: The Federal rules restrict any use of the information to criminally investigate or prosecute any alcohol or drug abuse patient.[facility] CenterIn the event this information is protected by the Federal Confidentiality of Alcohol and Drug Abuse Patient Records regulations: The Federal rules restrict any use of the information to criminally investigate or prosecute any alcohol or drug abuse patient.[facility] CenterIn the event this information is protected by the Federal Confidentiality of Alcohol and Drug Abuse Patient Records regulations: The Federal rules restrict any use of the information to criminally investigate or prosecute any alcohol or drug abuse patient.[facility] Care Teams (unrecognized sec tion [...] Provider, Other Provid er Active Loco Ferrera , DEBEADER-C Attending Provider Active Junior Estimator Relationship Specialty Start Date End Date Shaikh Storm MD [address] [place] [address] PCP - General Primary Care 12/06/21 Barbara Johnston MD [address] [place], [id number] Referring Urology 12/06/21 Junior Estimator Relationship Specialty Start Date End Date Shaikh Storm MD [address] [place] [address] PCP - General Primary Care 12/06/21 Barbara Johnston MD [address] [place] [address] Referring Urology 12/06/21 Junior Estimator Relationship Specialty Start Date End Date Shaikh Storm MD [address] [address] PCP - General Primary Care 12/06/21 Barbara Johnston MD [address] [place] [address] Referring Urology 12/06/21 Junior Estimator Relationship Specialty Start Date End Date Shaikh Storm MD [address] [place] [address] PCP - General Primary Care 12/06/21 Barbara Johnston MD [address] [place] [address] Referring Urology 12/06/21 Junior Estimator Relationship Specialty Start Date End Date Shaikh Storm MD [address] [address] PCP - General Primary Care 12/06/21 Barbara Johnston MD [address] [place] [address] Referring Urology 12/06/21 Constance Durand LSW [employer] 03/04/22 Junior Estimator Relationship Specialty Start Date End Date Shaikh Storm MD [address] [address] PCP - General Primary Care 12/06/21 Barbara Johnston MD [address] [place] [address] Referring Urology 12/06/21 Constance Durand LSW [employer] 03/04/22 Junior Estimator Relationship Specialty Start Date End Date Shaikh Storm MD [address] [place] [address] PCP - General Primary Care 12/06/21 Barbara Johnston MD [address] [place] [address] Referring Urology 12/06/21 Constance Durand LSW [employer] 03/04/22 Junior Estimator Relationship Specialty Start Date End Date Shaikh Storm MD [address] [place] [address] PCP - General Primary Care 12/06/21 Barbara Johnston MD [address] [place] [address] Referring Urology 12/06/21 Constance Durand LSW [employer] 03/04/22 Junior Estimator Relationship Specialty Start Date End Date Shaikh Storm MD [address] [address] PCP - General Primary Care 12/06/21 Barbara Johnston MD [address] [place] [address] Referring Urology 12/06/21 Constance Durand LSW [employer] 03/04/22 Junior Estimator Relationship Specialty Start Date End Date Shaikh Storm MD [address] [address] PCP - General Primary Care 12/06/21 Barbara Johnston MD [address] [place] [address] Referring Urology 12/06/21 Constance Durand, CEO [employer] 03/04/22 Junior Estimator Relationship Specialty Start Date End Date Shaikh Storm MD [address] [place] [address] PCP - General Primary Care 12/06/21 Barbara Johnston MD [address] [place] [address] Referring Urology 12/06/21 Constance Durand LSW [employer] 03/04/22 Junior Estimator Relationship Specialty Start Date End Date Shaikh Storm MD [address] [place] [address] PCP - General Primary Care 12/06/21 Barbara Johnston MD [address] [place] [address] Referring Urology 12/06/21 Constance Durand LSW [employer] 03/04/22 Junior Estimator Relationship Specialty Start Date End Date Shaikh Storm MD [address] [address] PCP - General Primary Care 12/06/21 Barbara Johnston MD [address] [place] [address] Referring Urology 12/06/21 Constance Durand LSW [employer] 03/04/22 Junior Estimator Relationship Specialty Start Date End Date Shaikh Storm MD [address] [address] PCP - General Primary Care 12/06/21 Barbara Johnston MD [address] [place] [address] Referring Urology 12/06/21 Constance Durand, CEO [employer] 03/04/22 Junior Estimator Relationship Specialty Start Date End Date Shaikh Storm MD [address] [address] PCP - General Primary Care 12/06/21 Barbara Johnston MD [address] [place], [place] [address] Referring Urology 12/06/21 Constance Durand, [facility] [employer] 03/04/22 Team Status: Inactive Member Role Status Dates Shaikh Dotty MD Primary Care Provider Active Zeinab Justice MD Attending Provider Active Junior Estimator Relationship Specialty Start Date End Date Shaikh Storm MD [address] [address] PCP - General Primary Care 12/06/21 Barbara Johnston MD [address] [place], [place] [address] Referring Urology 12/06/21 Constance Durand, [facility] [employer] 03/04/22 Team Status: Inactive Member Role Status Dates Shaikh Dotty MD Primary Care Provider Active Lyla Nazario MD Attending Provider Active Junior Estimator Relationship Specialty Start Date End Date Shaikh Storm MD [address] [address] PCP - General Primary Care 12/06/21 Barbara Johnston MD [address] [place], [place] [address] Referring Urology 12/06/21 Constance Durand [facility] [employer] 03/04/22 Junior Estimator Relationship Specialty Start Date End Date Shaikh Storm MD [address] [address] PCP - General Primary Care 12/06/21 Barbara Johnston MD [address] [place] [address] Referring Urology 12/06/21 Constance Durand LSW [employer] 03/04/22 Junior Estimator Relationship Specialty Start Date End Date Shaikh Storm MD [address] [address] PCP - General Primary Care 12/06/21 Barbara Johnston MD [address] [place] [address] Referring Urology 12/06/21 Constance Durand LSW [employer] 03/04/22 Junior Estimator Relationship Specialty Start Date End Date Shaikh Storm MD [address] [address] PCP - General Primary Care 12/06/21 Barbara Johnston MD [address] [place] [address] Referring Urology 12/06/21 Constance Durand LSW [employer] 03/04/22 Junior Estimator Relationship Specialty Start Date End Date Shaikh Storm MD [address] [address] PCP - General Primary Care 12/06/21 Barbara Johnston MD [address] [place] [address] Referring Urology 12/06/21 Constance Duarnd LSW [employer] 03/04/22 Junior Estimator Relationship Specialty Start Date End Date Shaikh Storm MD [address] [place] [address] PCP - General Primary Care 12/06/21 Barbara Johnston MD [address] [place] [address] Referring Urology 12/06/21 Constance Durand LSW [employer] 03/04/22 Junior Estimator Relationship Specialty Start Date End Date Shaikh Storm MD [address] [place] [address] PCP - General Primary Care 12/06/21 Barbara Johnston MD [address] [place] [address] Referring Urology 12/06/21 Constance Durand LSW [employer] 03/04/22 Junior Estimator Relationship Specialty Start Date End Date Shaikh Storm MD [address] [place] [address] PCP - General Primary Care 12/06/21 Barbara Johnston MD [address] [place] [address] Referring Urology 12/06/21 Constance Durand LSW [employer] 03/04/22 Junior Estimator Relationship Specialty Start Date End Date Shaikh Storm MD [address] [place] [address] PCP - General Primary Care 12/06/21 Barbara Johnston MD [address] [place] [address] Referring Urology 12/06/21 Constance Durand LSW [employer] 03/04/22 Team Status: Inactive Member Role Status Steven Storm MD Primary Care Provider Active Temporary Anesthesiologist Attending Provider Active Junior Estimator Relationship Specialty Start Date End Date Shaikh Storm MD [address] [place] [address] PCP - General Primary Care 12/06/21 Barbara Johnston MD [address] [place] [address] Referring Urology 12/06/21 Constance Durand, STEPHANIE [employer] 03/04/22 Team Status: Inactive Member Role Status Dates Shaikh Dotty MD Primary Care Provider Active Jose Martin Mchugh MD Attending Provider Active Team Status: Inactive Member Role Status Dates Shaikh Dotty MD Primary Care Provider Active Theo Thakkar MD Attending Provider Active Junior Estimator Relationship Specialty Start Date End Date Shaikh Storm MD [address] [place] [address] PCP - General Primary Care 12/06/21 Barbara Johnston MD [address] [place] [address] Referring Urology 12/06/21 Constance Durand LSW [employer] 03/04/22 Junior Estimator Relationship Specialty Start Date End Date Shaikh Storm MD [address] [place] [address] PCP - General Primary Care 12/06/21 Barbara Johnston MD [address] [place] [address] Referring Urology 12/06/21 Constance Durand, STEPHANIE [employer] 03/04/22 Team Status: Inactive Member Role Status Dates Shaikh Dotty MD Primary Care Provider, Attending Pr ovider Active Junior Estimator Relationship Specialty Start Date End Date Shaikh Storm MD [address] [address] PCP - General Internal Medicine 06/04/23 Junior Estimator Relationship Specialty Start Date End Date Shaikh Storm MD [address] [address] PCP - General Primary Care 12/06/21 Barbara Johnston MD [address] [place] [address] Referring Urology 12/06/21 Constance Durand LSW [employer] 03/04/22 Junior Estimator Relationship Specialty Start Date End Date Shaikh Storm MD [address] [place] [address] PCP - General Internal Medicine 06/04/23 Junior Estimator Relationship Specialty Start Date End Date Shaikh Storm MD [address] [place] [address] PCP - General Internal Medicine 06/04/23 Junior Estimator Relationship Specialty Start Date End Date Shaikh Storm MD PCP - General Internal Medicine 06/04/23 Team Status: Inactive Member Role Status Dates Shaikh Dotty MD Primary Care Provider Active Start: October 15, 2023 End: October 15, 2023 Bonnie Tan , DEBEADER-C Attending Provider Active Start: October 15, 2023 End: October 15, 2023 Junior Estimator Relationship Specialty Start Date End Date Shaikh Storm MD [address] [place] [address] PCP - General Primary Care 12/06/21 Barbara Johnston MD [address] [place] [address] Referring Urology 12/06/21 Constance Durand, CEO [employer] 03/04/22 Junior Estimator Relationship Specialty Start Date End Date Shaikh Storm MD [address] [address] PCP - General Primary Care 12/06/21 Barbara Johnston MD [address] [place] [address] Referring Urology 12/06/21 Constance Durand, CEO [employer] 03/04/22 Team Status: Active Member Role Status [...] February 29, 2024 End: February 29, 2024 Junior Estimator Relationship Specialty Start Date End Date Brian Avalos MD [address] [place] [address] PCP - General Family Medicine 01/12/24 Nasir Ward NP [address] [place] [address] Nurse Practitioner Family Medicine 01/12/24 Junior Estimator Relationship Specialty Start Date End Date Brian Avalos MD [address] [place] [address] PCP - General Family Medicine 01/12/24 Nasir Ward NP [address] [place], [place] [address] Nurse Practitioner Family Medicine 01/12/24 Junior Estimator Relationship Specialty Start Date End Date Brian Avalos MD [address] [place] [address] PCP - General Family Medicine 01/12/24 Nasir Ward NP [address] [place], [place] [address] Nurse Practitioner Family Medicine 01/12/24 Junior Estimator Relationship Specialty Start Date End Date Brian Avalos MD [address] [place] [address] PCP - General Family Medicine 01/12/24 Nasir Ward NP [address] [place], [place] [address] Nurse Practitioner Family Medicine 01/12/24 Junior Estimator Relationship Specialty Start Date End Date Brian Avalos MD [address] [place] [address] PCP - General Family Medicine 01/12/24 Nasir Ward NP [address] [place] [address] Nurse Practitioner Family Medicine 01/12/24 Junior Estimator Relationship Specialty Start Date End Date Brian Avalos MD [address] [place] [address] PCP - General Family Medicine 01/12/24 Nasir Ward NP [address] [place] [address] Nurse Practitioner [facility] Medicine 01/12/24 Junior Estimator Relationship Specialty Start Date End Date Brian Avalos MD [address] [place] [address] PCP - General Family Medicine 01/12/24 Nasir Ward NP [address] [place] [address] Nurse Practitioner [facility] Medicine 01/12/24 Team Status: Inactive Member Role [...] August 15, 2024 End: August 15, 2024 Junior Estimator Relationship Specialty Start Date End Date Shaikh Storm MD PCP - General Internal Medicine 06/04/23 Junior Estimator Relationship Specialty Start Date End Date Brian Avalos MD [address] [place] [address] PCP - General Family Medicine 01/12/24 Nasir Ward NP [address] [place] [address] Nurse Practitioner Family Medicine 01/12/24 Junior Estimator Relationship Specialty Start Date End Date Brian Avalos MD [address] [place] [address] PCP - General Family Medicine 01/12/24 Nasir Ward NP [address] [place] [address] Nurse Practitioner Family Medicine 01/12/24 Junior Estimator Relationship Specialty Start Date End Date Shaikh Storm MD [address] [place] [address] PCP - General Primary Care 12/06/21 Barbara Johnston MD [address] [address] Referring Urology 12/06/21 Constance Durand LSW [employer] 03/04/22 Junior Estimator Relationship Specialty Start Date End Date Brian [...] BE BASED ON THE PRIMARY CLINICAL RECORDS. [employer] provides no warranty or guarantee of the accuracy or completeness of information in this document.
--- NOTE | 2025-03-13 13:28 | ECG_ITS ---
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 Measurements Intervals [place] Rate: 67 P: 29 MS: 162 QRS: -40 QRSD: 154 T: 26 QT: 415 QTc: 439 Interpretive Statements SINUS RHYTHM RIGHT BUNDLE BRANCH BLOCK MARKED LEFT AXIS DEVIATION [QRS AXIS < -30] Abnormal ECG Compared to ECG 05/29/2021 08:31:54 Sinus bradycardia no longer present Electronically Signed On 03-13-2025 18:47:37 EDT by RUT KIRBY M.D.
--- NOTE | 2025-03-13 13:28 | XR_ITS ---
The [address] [address] Patient Name: YESENIA MALIK MRN: [id number] date: 1945 Sex: M Assigned Patient Location: [facility] Current Patient Location: [facility] Accession/Order Number: [id number] Exam Date: 03/13/2025 14:24 Report Date: 03/13/2025 20:39 At the request of: BARBARA JOHNSTON MD Procedure: XR chest 2V XR chest 2V 03/13/2025 2:29 PM SIGNS AND SYMPTOMS: ^Preop exam ^N PROTOCOL: Frontal and lateral graphs of the chest COMPARISON: None FINDINGS: The trachea is midline. Atherosclerotic changes are noted in the aortic arch. The heart and mediastinal structures are within normal limits. The lung parenchyma is clear. The bony thorax is intact. Degenerative changes are noted in the thoracic spine and shoulders. Healed posterior right fifth and sixth rib fractures are noted. XR/XR chest 2V IMPRESSION: No acute cardiopulmonary pathology. Impression dictated by: Ty Womack M.D. 03/13/2025 8:39 PM Dictation Location: [place] [address] Electronically authenticated by: [id number] Y Date: 03/13/2025 20:39
[2025-03-13 14:36] LABS: Hematocrit 36.4 % (42.0-54.0); Hemoglobin 12.0 g/dL (14.0-18.0); Immature Granulocytes Abs Auto 0.03 10^3/uL (0.00-0.03); Immature Granulocytes Pct Auto 0.4 % (0.0-0.5); Lymphocytes Absolute Auto 1.2 10^3/uL (1.2-3.8); Mean Corpuscular HGB Conc 33.0 g/dL (29.9-35.2); Mean Corpuscular Hemoglobin 31.3 pg (25.9-34.0); Mean Corpuscular Volume 95.0 fL (80.0-94.0); Platelet Count 266 10^3/uL (150-450); Red Blood Count 3.83 10^6/uL (4.70-6.10); White Blood Count 7.4 10^3/uL (4.0-11.0)
[2025-03-13 14:49] LABS: INR 0.97; Partial Thromboplastin Time 24.5 sec (22.3-36.2); Prothrombin Time 10.3 sec (9.0-11.6)
--- NOTE | 2025-03-13 15:02 | PM.PRESUREVA ---
History of Present Illness History of Present Illness Chief complaint: bladder tumor Narrative: Patient presents for presurgical testing. Please see HPI from Dr. Alaniz dated March 07, 2025. Review of Systems ROS Narrative Please see ROS from Dr. Alaniz dated March 07, 2025. PFSH PFS Medical History (Updated 03/13/25 @ 14:28 by Livier Saldivar NP) Arthritis ?M19.90 - Unspecified osteoarthritis, unspecified site (ICD-10) Transient ischemic attack ?G45.9 - Transient cerebral ischemic attack, unspecified (ICD-10) Myocardial infarction ?I21.9 - Acute myocardial infarction, unspecified (ICD-10) High cholesterol ?E78.00 - Pure hypercholesterolemia, unspecified (ICD-10) Hypotension after procedure ?I95.81 - Postprocedural hypotension (ICD-10) Peripheral vascular disease ?I73.9 - Peripheral vascular disease, unspecified (ICD-10) Carotid artery disease ?I77.9 - Disorder of arteries and arterioles, unspecified (ICD-10) Back pain ?M54.9 - Dorsalgia, unspecified (ICD-10) CAD (coronary artery disease) ?I25.10 - Atherosclerotic heart disease of [place] coronary artery without angina pectoris (ICD-10) Bladder tumor ?D49.4 - Neoplasm of unspecified behavior of bladder (ICD-10) History of stress test ?Z92.89 - Personal history of other medical treatment (ICD-10) Osteoarthritis ?M19.90 - Unspecified osteoarthritis, unspecified site (ICD-10) Hearing deficit ?H91.90 - Unspecified hearing loss, unspecified ear (ICD-10) Prostate cancer ?C61 - Malignant neoplasm of prostate (ICD-10) Enlarged prostate ?N40.0 - Benign prostatic hyperplasia without lower urinary tract symptoms (ICD-10) Kidney disease ?N28.9 - Disorder of kidney and ureter, unspecified (ICD-10) Surgical History (Updated 03/13/25 @ 15:00 by Livier Saldivar NP) H/O angioplasty ?Z98.62 - Peripheral vascular angioplasty status (ICD-10) History of cardiac catheterization ?Z98.890 - Other specified postprocedural states (ICD-10) History of colonoscopy ?Z98.890 - Other specified postprocedural states (ICD-10) History of spinal surgery ?Z98.890 - Other specified postprocedural states (ICD-10) S/P cataract extraction and insertion of intraocular lens ?Z98.49 - Cataract extraction status, unspecified eye (ICD-10) ?Z96.1 - Presence of intraocular lens (ICD-10) H/O endarterectomy ?Z98.890 - Other specified postprocedural states (ICD-10) History of bowel resection ?Z90.49 - Acquired absence of other specified parts of digestive tract (ICD-10) History of exploratory laparotomy ?Z98.890 - Other specified postprocedural states (ICD-10) History of lumbar discectomy ?Z98.890 - Other specified postprocedural states (ICD-10) History of heart artery stent ?Z95.5 - Presence of coronary angioplasty implant and graft (ICD-10) Family History (Updated 03/13/25 @ 14:06 by Livier Saldivar NP) Other Family history of Parkinson disease Family history of diabetes mellitus Family history of heart disease Social History (Updated 03/13/25 @ 13:52 by Livier Saldivar NP) Within the past year, how often did you have a drink containing alcohol: never Score interpretation: A score less than 4 is consistent with normal alcohol consumption. Smoking status: Current every day smoker What tobacco products do you use: cigarettes Cigarettes per day: 22 Years smoked: 68 Smoking pack-years: 74.80 Non-prescribed substance use: denies use Highest level of school completed/degree received: high school graduate Meds Home Medications and Allergies Home Medications ?Medication ?Instructions ?Recorded ?Confirmed ?Type amlodipine 10 mg tablet 10 mg PO DAILY 02/05/23 03/13/25 History aspirin 81 mg capsule 81 mg PO DAILY 02/05/23 03/13/25 History clopidogrel 75 mg tablet (Plavix) 75 mg PO DAILY 07/30/23 03/13/25 History pravastatin 40 mg tablet 40 mg PO DAILY 07/30/23 03/13/25 History naloxone 4 mg/actuation nasal 4 mg intranasal Q2M PRN opioid 05/26/24 03/13/25 Rx spray (Narcan) overdose #2 ea valsartan 80 mg tablet 80 mg PO DAILY 09/21/24 03/13/25 History cyclobenzaprine 10 mg tablet 10 mg PO HS PRN muscle spasm #30 02/08/25 03/13/25 Rx tabs hydrocodone 5 mg-acetaminophen 325 1 tab PO BID PRN pain #60 tabs 03/02/25 03/13/25 Rx mg tablet ergocalciferol (vitamin D2) 1,250 50,000 unit PO QWEEK 03/13/25 03/13/25 History mcg (50,000 unit) capsule ferrous sulfate 325 mg (65 mg 325 mg PO DAILY 03/13/25 03/13/25 History iron) tablet,delayed release nitroglycerin 0.4 mg sublingual 0.4 mg sublingual Q5M 03/13/25 03/13/25 History tablet Allergies Allergy/AdvReac Type Severity Reaction Status Date / Time ezetimibe Allergy myalgia Verified 03/13/25 13:44 Exam Narrative Exam Narrative: Constitutional: Awake, alert, comfortable, well-appearing, nontoxic, interactive, vital signs as charted Head: Normocephalic, atraumatic Neck: Supple, normal appearance, normal range of motion, no meningeal signs, no lymphadenopathy Respiratory: No respiratory distress, breath sounds clear Cardiovascular: Regular rate and rhythm, strong and regular heart tones Abdomen: Nontender, normal bowel sounds, soft, no CVA tenderness Musculoskeletal: Normal gait, no swelling or edema Skin: No rashes or induration, no lesions, only visible skin inspected Neuro: No neurological deficits, normal sensation Psychiatric: Oriented ?3, normal affect Assessment and Plan Assessment and Plan (1) Bladder tumor: Plan Cystoscopy, TURBT scheduled with Dr. Alaniz March 23, 2025.
[2025-03-13 15:09] LABS: Anion Gap 14.3; Blood Urea Nitrogen 25.0 mg/dL (7.0-18.0); Calcium 8.5 mg/dL (8.5-10.1); Carbon Dioxide 23.3 mmol/L (21.0-32.0); Chloride 109 mmol/L (98-107); Estimated GFR (African America 35 (>=60 mL/min/1.73m^2); Estimated GFR (Non-African Ame 29 (>=60 mL/min/1.73m^2); Glucose 148 mg/dL (74-106); Potassium 4.6 mmol/L (3.5-5.1); Sodium 142 mmol/L (136-145)
== END 2025-03-13 13:20 | disposition home or self-care (01) ==
LOC: PST 13:20
PROVIDERS: PCP Family Medicine; Visit Provider Urology
DX: Z01.810 Encounter for preprocedural cardiovascular examination (principal); Z01.812 Encounter for preprocedural laboratory examination; Z01.818 Encounter for other preprocedural examination; D49.4 Neoplasm of unspecified behavior of bladder
CPT/HCPCS: 71046; 80048; 85025; 85610; 85730; 93005; G0463

== ENCOUNTER 2025-03-23 06:54 | Day surgery (SDC) | payer MEDICARE, SELFPAY ==
[2025-03-13 14:20] VITALS: BP 132/76; PULSE 85; TEMP 36.6; O2SAT 97; BMI 28.3
--- OUTSIDE RECORDS SUMMARY | 2025-03-14 08:03 | XMS_ITS | Continuity of Care Document ---
Author Organization [facility] Address [address] [place] [address] Phone Care Team Providers Care Plant Chief Name Role Phone Brian Avalos MD Primary Care Provider Andre Thakkar Attending Provider Ronaldo Alaniz MD Attending Provider Lucinda Nuñez DO Primary Care Provider Lucinda Nuñez DO Attending Provider [phone] Care Teams Patient Care Team Team Status: Active Member Role Status Dates Lucinda Nuñez DO Primary Care Provider Active Visit Care Team Team Status: Active Member Role Status Dates Brian Avalos MD Primary Care Provider Active S tart: February 13, 2025 Qasim Cueva ProviderActiveStart: February 13, 2025 Visit Care Team Team Status: Inactive Member Role Status Dates Brian Avalos MD Primary Care Provider Active S tart: February 20, 2025 End: February 20Qasim Kyle ProviderActiveStart: February 20, 2025 End: February 20, 2025 Visit Care Team Team Status: Active Member Role Status Dates Brian Avalos MD Primary Care Provider Active S tart: March 02, 2025 Qasim Saavedra ProviderActiveStart: March 02, 2025 Patient Care Team Team Status: Active Member Role Status Dates Brian Avalos MD Primary Care Provider Active S tart: March 13, 2025 Ronaldo Alaniz MDAttcharly ProviderActiveStart: March 13, 2025 Patient Care Team Team Status: Inactive Member Role Status Dates Lucinda Nuñez DO Primary Care Provider Active S tart: March 14, 2025 End: March 14, 2025Lucinda Nuñez DOAttending ProviderActiveStart: March 14, 2025 End: March 14, 2025 Chief Complaint and Reason for Visit Chief Complaint Admit Date renal 6 month f/u February 20, 2025 11:31am 6M and medication refills March 14, 2025 10:51am Reason for Visit Admit Date Anemia of renal disease February 20, 2025 11:31am CKD (chronic kidney disease) stage 3, GF R 30-59 ml/min February 20, 2025 11:31am Hyperlipidemia February 20, 2025 11:31am Hypertensive chronic kidney disease with stage 1 through stage 4 chronic ki February 20, 2025 11:31am Microscopic hematuria February 20 11:31am Secondary hyperparathyroidism February 20, 2025 11:31am Anemia of renal disease March 14 10:51am Back pain associated with peripheral num bness March 14, 2025 10:51am CAD (coronary artery disease) March 142024 10:51am CKD (chronic kidney disease) stage 3, GF R 30-59 ml/min March 14, 2025 10:51am Current every day smoker March 14, 2 025 10:51am Essential hypertension March 14 10:51am Hyperlipidemia March 14, 2025 1 0:51am PAD (peripheral artery disease) March 14, 2025 10:51am Prostate cancer March 14, 2025 1 0:51am PVD (peripheral vascular disease) with c laudication March 14, 2025 10:51am Secondary hyperparathyroidism March 142024 10:51am Allergies, Adverse Reactions, Alerts Allergen Type Severity Reaction Last Updated Verified Status ezetimibe Adverse Reaction Unknown Muscle Pain March 14, 2025 11:03am Yes Active Social History Smoking Status Status Start Date End Date Date of Observa tion Smokes tobacco daily (finding) February 20, 2025 11:39am Observation Status Observation Response Date of Response Legal Sex Male (finding) Sex Assigned At [facility] 1945 Family History Relationship Condition Age at Onset Recorded Date/T yudi father Parkinson's disease Unknown Diabetes mellitusUnknownmotherHeart diseaseUnknownfatherDeceasedUnknownDiabetes mellitusUnknownParkinson's diseaseUnknownmotherHypertensionUnknownHeart disease UnknownDeceasedUnknownsonHeart diseaseUnknown Problems Active Problems Medical Problem Onset Date Status Comments UTI (urinary tract infection) Unknown Active Current every day smokerUnknownActiveSecondary hyperparathyroidismUnknownActive MyalgiaUnknownActiveProstate cancerUnknownActivehx radiation treatmentsCKD (chronic kidney disease) stage 3, GFR 30-59 ml/minUnknownActiveCAD (coronary artery disease)UnknownActiveHypertensive chronic kidney disease with stage 1 through stage 4 chronic kidney disease, or unspecified chronic kidney disease UnknownActiveHyperlipidemiaUnknownActiveMicroscopic hematuriaUnknownActiveBack pain associated with peripheral numbnessUnknownActiveEssential hypertension UnknownActivePVD (peripheral vascular disease) with claudicationUnknownActive legsPAD (peripheral artery disease)UnknownActiveAnemia of renal diseaseUnknown ActiveInactive/Resolved Problems Medical Problem Onset Date Status Comments Corneal laceration of left eye Unknown Resolved Medications Medication Status Dose Units Route Directions Qty Days St art Date Stop Date End Date Instructions Adherence Ergocalciferol (Vitamin D2) 1,250 mcg (50,000 unit) ca psule Discontinued 0 .ROUTE.TPRRHJE15Brarjuh 2023 10:14amMay 2024 2:51pmTAKE 1 CAPSULE BY MOUTH ONCE A WEEKClopidogrel 75 mg nprhpvIunhhv64FPSUFeoqz72858Dlxwfmkj 2023 3:46pmComplies with drug therapyErgocalciferol (Vitamin D2) 1,250 mcg (50,000 unit) capsuleActive0.ROUTE.GDCNUUV78Ojn 2024 2:51pmTAKE 1 CAPSULE BY MOUTH ONCE A WEEKComplies with drug therapyAmlodipine 10 mg tcwnsmVztmyk16ST XGVqknb39Eenvhiz 2024 8:07amComplies with drug therapyHydrocodone- Acetaminophen 5-325 mg rgktpfUemjuidahbif8KJYSRYmdap daily as needed for Pain November 22, 2021 12:00amSeptember 2022 11:57amLisinopril 20 mg tablet Vxrojavhabmr68FOVVEttjcThxs 2021 12:00amMay 2023 9:17amPravastatin 10 mg jkhhzaAowpmryhoazj54DYDRUgklpUzfb 2021 12:00amOctober 2022 10:03amBaclofen 10 mg ulxpvcZbwewksodlet19VCSTWssja at bedtimeJune 2021 12:00amMarch 2024 10:38amAmlodipine 10 mg njvyyoUtjxhijmygwa47RZEPXcdsx November 22, 2021 12:00amOct[facility] 2024 8:08amTerazosin 10 mg capsule Sumwfyzyaqor01BLVCRcnfu at bedtimeJun2021 12:00amMay 2023 9:17am Atenolol 50 mg uncvsuRehztbnsepan27DKRLSvrhzPfge 24th, 2022 12:00amMay 2023 9:17amPregabalin 50 mg muvfawdXtarwodwdmnw19GCUHKowrz dailyJun2021 12:00amSeptember 2022 11:58amPravastatin 40 mg HltpgrZwgmiv76RWBOIawvq uenkpvr51010Rsvbjxw 2022 12:00amComplies with drug therapyClopidogrel 75 mg DmzbvoCwrbhgivkwwb10IJJZKrenl16981Pxzpzhw 2022 12:00amNovember 2023 3:46pmHydrocodone-Acetaminophen 7.5-325 mg cejeetTcjkujhzvhlg3TEZZENrcza times daily as needed for PainSept2022 12:00amSeptember 2023 11:39amAspirin (Aspir-81) 81 mg Tablet,Delayed Release (Dr/Ec)Gnomib32FTTFXyxiw February 06, 2023 12:00amComplies with drug therapyGabapentin 100 mg Capsule Xfyrlbikxjtq285CQLDUpejrYvmywwtbo 8th, 2023 12:[facility]am[facility] 2024 10:38am Oxybutynin Chloride 5 mg ZzrglpFtrbkxjhvbge6UVDOIyfyl at bedtimeSeptember 2022 12:00amMay 2023 9:17amOfloxacin 0.3 % uoddqWigdtreapotd9ORKPZQKV-YUUA Every 6 xxmtd3Ycvrobmp 2024 1:00amMarch 2024 10:38am2 drps Left Eye; Hydrocodone-Acetaminophen 5-325 mg hymbasRjohwj2VMDRZMowdq as neededSeptember 2023 12:00amComplies with drug therapyVarenicline Tartrate (Chantix Starting Month Box) 0.5 mg (11)- 1 mg (42) tablets,dose wenaCbqncmlffepi5LOxzb package directionsSept2023 12:00amMarch 2024 10:38amPO PER PKG DIRDoxycycline Hyclate 100 mg anrvpiKskutkvehnez491JPYKZlhmi scsis22Lgvrdhlvz 30th, 2024 12:00amMarc2024 10:38amValsartan 80 mg liroojDwoklswtuzxi08RD PODailyMay 2023 12:00amOctober 2024 3:24pmOmeprazole 40 mg capsule,delayed release(DR/EC)Oefaqstnpauk50HRRSYfnrmRpj 2023 12:00am February 29, 2024 11:41amErgocalciferol (Vitamin D2) 1,250 mcg (50,000 unit) scmkchhPkxocahijfpg73443HJLRAESrxt a weekApril 2023 12:00amApril 2023 5:44pmErgocalciferol (Vitamin D2) 1,250 mcg (50,000 unit) capsule Cuhqtovibzcm12487IWOASSNuuw a eqtz24Xzuea 2023 5:43pmOctober 2023 10:15amNitroglycerin 0.4 mg tablet, sublingualActive0.3OUWAHAMBRFLMJ9TPqaet 2024 12:00amdo not exceed 3 doses per episodeComplies with drug therapy Lisinopril 20 mg xoiwbwPdrykcwtgiga57RINQAxexfSenfnaa 2024 12:00amOctober 2024 11:06amPregabalin (Lyrica) 50 mg cnidpuyHuninyzbyifq84CPHTTvdjf daily March 13, 2025 12:00amOct2024 11:06amCyclobenzaprine 10 mg tablet Zevdrj06IRESCkshh at bedtimeMarch 14, 2025 12:00amComplies with drug therapy Valsartan 80 mg fepxcfOgldyy67AWEEMujgwZamzrvw 14th, 2025 12:00amComplies with drug therapyFerrous Sulfate (Feosol) 325 mg (65 mg iron) jchjepRdotkc663VPLG.QOD March 14, 2025 12:00amComplies with drug therapy Immunizations Immunization Event Date Not Given Reason Dose Number Prepress Manager Lot Number Vaccine Information Statement (VIS) Detail Administration Location COVID-19 mRNA-1273 (Moderna) June 25, 2020 COVID-19 mRNA-1273 (Moderna)July 26, 2020 Medical Equipment Device Date Implanted Device Details Multiple peripheral artery s tent, bare-metal March 23, 2023 GAURANG: [id number] Issuing Agency: [employer] Device Id: [id number] Expiration Date: 2025-08-23 Serial Number: [id number] Relevant Diagnostic Tests and/or Laboratory Data Laboratory Results Test Collection Date/Time Result Date/Time Result Interpretation Reference Range Result Comment Performing Site Parathyroi d Hormone (Intact) February 13, 2025 10:59am February 13, 2025 10:59am 81 pg/mL Abnormal (applies to non-numeric results) - Performed at: [address] [id number] b Director: Rojelio Nelson PhD, Phone: [phone] 25-Hydroxy Vitamin D TotalSeptember 2024 10:59amSeptember 2024 10:59am43.3 ng/mL<20 ng/mL Vit D sevjbzkss11-<30 ng/mL Vit D ijaarggteujh53-999 ng/mL Vit D sufficient>100 ng/mL Potential ToxicityFerritinSeptember 2024 10:59amSeptember 2024 10:59am45.0 ng/mL26.0-388.0Iron SaturationSeptember 2024 10:59amSeptember 2024 10:59am22.6 %Magnesium LevelSeptember 2024 10:59amSeptember 2024 10:59am2.0 mg/dL1.8-2.4Uric AcidSeptarizona spine and [facility] 2024 10:59amSeptember 2024 10:59am6.6 mg/dL3.5-7.2Anion GapSeptarizona spine and joint hospital 2024 10:59amSeptember 2024 10:59am14.6HematocritSeptember 2024 10:59amSeptember 2024 10:59am39.3 %Below low cilbsu48.0-54.0Urine Random CreatinineSeptarizona spine and joint hospital 2024 12:30pmSeptarizona spine and joint hospital 2024 12:26wn457.61 mg/dL 20.00-300.00Urine Other CastsSeptarizona spine and joint hospital 2024 12:30pmNONE SEEN #/LPFNONE SEENCreatinineOcttristar [facility] 2024 1:22pmOctober 2024 1:22pm2.14 mg/dLAbove high normal0.70-1.30Anion GapOsf [facility] 2:20pmOcttr[facility] 2024 2:20pm 14.3Activated Partial Thromboplast TimeOcttristar [facility] 2024 2:20pmOcttristar [facility] 2024 2:20pm24.5 sec22.3-36.2Prothromb Time International RatioOcttristar [facility] 2024 2:20pmOcttristar [facility] 2024 2:20pm0.97DESIRED INR:2.0-3.0 CONDITIONS NOT LISTED BELOW2.5-3.5 FOR PROSTHETIC HEART VALVE REPLACEMENT2.5-3.5 RECURRENT THROMBOSIS Basophils # (Auto)March 13, 2025 2:20pmOcttristar [facility] 2024 2:20pm0.0 10 3/uL 0.0-0.1Iron LevelSeptarizona spine and joint hospital 2024 10:59amSeptarizona spine and joint hospital 2024 10:59am80.0 ug/dL65.0-175.0AlbuminSeptarizona spine and joint hospital 2024 10:59amSeptember 2024 10:59am 3.8 g/dL3.4-5.0HemoglobinSeptember 2024 10:59amSeptember 2024 10:59am12.9 g/dLBelow low .0-18.0Urine Protein/Creatinine RatioSeptember 2024 12:30pmSeptember 2024 12:30pm0.69Urine Other CrystalsSeptember 2024 12:30pmNone Seen #/HPFNone SeenEstimated GFR () March 02, 2025 1:22pmOctober 2024 1:69ig38Vbiks low normal>=60 mL/min/1.73m 2BUN/Creatinine RatioOctober 2024 2:20pmOctober 2024 2:20pm11.4Prothrombin TimeOctober 2024 2:20pmOctober 2024 2:20pm10.3 sec9.0-11.6Basophils (%) (Auto)March 13, 2025 2:20pmOctober 2024 2:20pm0.3 %0.2-2.0Total Iron Binding CapacitySept2024 10:59am February 13, 2025 10:05xn379.0 ug/dL250.0-450.0BUN/Creatinine RatioSept2024 10:59amSeptember 2024 10:59am14.5Mean Corpuscular Hemoglobin February 13, 2025 10:59amSept2024 10:59am30.9 pg25.9-34.0Urine Random Total ProteinSept2024 12:30pmSeptember 2024 12:30pm 147.8 mg/dLAbove high normal<=11.9Urine BacteriaSept2024 12:30pm SMALL #/HPFAbnormal (applies to non-numeric results)NONE SEENEstimated GFR (Non- AmericanOct2024 1:22pmOct2024 1:00gf05Gwmhw low normal>=60 mL/min/1.73m 2Blood Urea NitrogenOctober th, 2025 2:20pmOct2024 2:20pm25.0 mg/dLAbove high normal7.0-18.0Eosinophils # (Auto)March 13, 2025 2:20pmOct2024 2:20pm0.2 10 3/uL0.0-0.7Blood Urea Nitrogen February 13, 2025 10:59amSept2024 10:59am28.0 mg/dLAbove high normal7.0-18.0Mean Corpuscular Hemoglobin ConcentSeptember 2024 10:59am February 13, 2025 10:59am32.8 g/dL29.9-35.2Urine BilirubinSeptember 2024 12:30pmSMALLAbnormal (applies to non-numeric results)NEGATIVECalcium Level March 13, 2025 2:20pmOct2024 2:20pm8.5 mg/dL8.5-10.1Eosinophils (%) (Auto)March 13, 2025 2:20pmOct2024 2:20pm3.2 %0.9-7.0Calcium LevelSept2024 10:59amSept2024 10:59am9.2 mg/dL8.5-10.1 Mean Corpuscular VolumeSeptember 2024 10:59amSept2024 10:59am 94.0 fL80.0-94.0Urine Occult BloodSeptember 2024 12:30pmTRACE-INEGATIVE Chloride LevelOct2024 2:20pmOct2024 2:08ez017 mmol/LAbove high agwpco10-493TqnqksbczcTbfcfrc 13th, 2025 2:20pmOct2024 2:20pm 36.4 %Below low .0-54.0Chloride LevelSeptember 2024 10:59am February 13, 2025 10:74mz680 mmol/S06-781Bvio Platelet VolumeSeptember 2024 10:59amSept2024 10:59am10.3 fL9.5-13.5Urine AppearanceSept2024 12:30pmSL CLOUDYCLEARCarbon Dioxide LevelOct2024 2:20pm March 13, 2025 2:20pm23.3 mmol/L21.0-32.0HemoglobinOct2024 2:20pm March 13, 2025 2:20pm12.0 g/dLBelow low erkoxa09.0-18.0Carbon Dioxide Level February 13, 2025 10:59amSeptember 2024 10:59am23.6 mmol/L21.0-32.0 Platelet CountSept2024 10:59amSeptember 2024 10:03fr692 10 3/nZ410-240Fclfa ColorSept2024 12:30pmLT. YELLOWYELLOWCreatinine March 13, 2025 2:20pmOctober 2024 2:20pm2.20 mg/dLAbove high normal 0.70-1.30Immature Granulocyte # (Auto)March 13, 2025 2:20pmOctober 2024 2:20pm0.03 10 3/uL0.00-0.03CreatinineSept2024 10:59amSeptember 2024 10:59am1.93 mg/dLAbove high normal0.70-1.30Red Blood CountSept2024 10:59amSept2024 10:59am4.18 10 6/uLBelow low normal 4.70-6.10Urine Glucose (UA)February 13, 2025 12:30pmNEGATIVE mg/dLNEGATIVE Estimated GFR ()March 13, 2025 2:20pmOct2024 2:53sr46Mtdke low normal>=60 mL/min/1.73m 2Immature Granulocyte % (Auto)March 13, 2025 2:20pmOctober 2024 2:20pm0.4 %0.0-0.5Estimated GFR ()February 13, 2025 10:59amSeptember 2024 10:01aq99Eradt low normal>=60 mL/min/1.73m 2Red Cell Distribution WidthSeptember 2024 10:59am February 13, 2025 10:59am13.6 %11.0-15.0Urine KetonesSeptember 2024 12:30pmTRACE mg/dLAbnormal (applies to non-numeric results)NEGATIVEEstimated GFR (Non- AmericanOct2024 2:20pmOctober 2024 2:71yv83Uxgfv low normal>=60 mL/min/1.73m 2Lymphocytes # (Auto)March 13, 2025 2:20pm March 13, 2025 2:20pm1.2 10 3/uL1.2-3.8Estimated GFR (Non- February 13, 2025 10:59amSept2024 10:55ai95Rfkgd low normal>=60 mL/min/1.73m 2Corrected White Blood CountSept2024 10:59amSeptember 2024 10:59am8.0 10 3/uL4.0-11.0Urine Leukocyte EsteraseSeptember 2024 12:30pmLARGEAbnormal (applies to non-numeric results)NEGATIVEGlucose Level March 13, 2025 2:20pmOctober 2024 2:76lp818 mg/dLAbove high normal 74-106Lymphocytes (%) (Auto)March 13, 2025 2:20pmOctober 2024 2:20pm 16.2 %Below low .5-60.0Glucose LevelSeptember 2024 10:59am February 13, 2025 10:94bm894 mg/vN44-408Jorsi MucusSeptember 2024 12:30pmNONE SEENNONE SEENPotassium LevelOctober 2024 2:20pmOctober 2024 2:20pm4.6 mmol/L3.5-5.1Mean Corpuscular HemoglobinOctober 2024 2:20pm March 13, 2025 2:20pm31.3 pg25.9-34.0Potassium LevelSeptember 2024 10:59amSeptember 2024 10:59am5.2 mmol/LAbove high normal3.5-5.1Urine NitriteSeptember 2024 12:30pmNEGATIVENEGATIVESodium LevelOctober 2024 2:20pmOctober 2024 2:16kf221 mmol/C087-228Nzey Corpuscular Hemoglobin ConcentOct2024 2:20pmOctober 2024 2:20pm33.0 g/dL29.9-35.2 Sodium LevelSeptember 2024 10:59amSept2024 10:04cl777 mmol/L 136-145Urine pHSeptember 2024 12:30pm5.55.0-9.0Mean Corpuscular Volume March 13, 2025 2:20pmOct2024 2:20pm95.0 fLAbove high normal 80.0-94.0Phosphorus LevelSeptember 2024 10:59amSeptember 2024 10:59am3.9 mg/dL2.6-4.7Urine ProteinSeptember 2024 12:37so818 mg/dL Abnormal (applies to non-numeric results)NEG/TRACEMonocytes # (Auto)March 13, 2025 2:20pmOctober 2024 2:20pm0.6 10 3/uL0.3-0.8Urine RBCSeptember 2024 12:05ke6-0 #/HPF0-2Monocytes (%) (Auto)March 13, 2025 2:20pm March 13, 2025 2:20pm8.1 %1.7-12.0Urine Specific GravitySept2024 12:30pm1.0251.005-1.025Mean Platelet VolumeOct2024 2:20pmOctober 2024 2:20pm10.6 fL9.5-13.5Urine Squamous Epithelial CellsSeptember 2024 12:30pmRARE #/LPFNONE/RARENeutrophils # (Auto)March 13, 2025 2:20pm March 13, 2025 2:20pm5.3 10 3/uL1.4-6.5Urine UrobilinogenSeptember 2024 12:30pm0.2 EU/dL0.2-1.0Neutrophils (%) (Auto)March 13, 2025 2:20pm March 13, 2025 2:20pm71.8 %43.0-75.0Urine WBCSeptember 2024 12:30pm50- 75 #/HPFAbnormal (applies to non-numeric results)NONE SEENPlatelet CountOct2024 2:20pmOct2024 2:72rd675 10 3/eG349-961Mho Blood Count March 13, 2025 2:20pmOctober 2024 2:20pm3.83 10 6/uLBelow low normal 4.70-6.10Red Cell Distribution WidthOct2024 2:20pmOctober 2024 2:20pm13.5 %11.0-15.0Corrected White Blood CountOct2024 2:20pmOctober 2024 2:20pm7.4 10 3/uL4.0-11.0 Vital Signs Vital Reading Result Reference Range Collection Date/Time Height 70 [in_i] February 20, 2025 11:59usKvxhak07.01 kgSeptember 2024 11:37amHeart Rate 75 /huq71-227Txyhxpqbd 2024 11:37amRespiratory rate18 /xaf05-26Farwcjezm 2024 11:37amOxygen saturation by Pulse cuutpnma51 %95-100September 2024 11:37amBP Vfdaltay235 mm[Hg]100-140September 2024 11:37amBP Diastolic 78 mm[Hg]60-100September 2024 11:37amBMI (Body Mass Index)28.1 kg/m2 February 20, 2025 11:51yaVaohrb30 [in_i]March 14, 2025 11:09mjZhzyhi72.35 kgOctober 2024 11:02amHeart Rate71 /rgn73-954Azciwos 2024 11:02am Respiratory rate20 /bmo46-16Kfnbvda 2024 11:02amOxygen saturation by Pulse arqfwabs70 %95-100[facility] 2024 11:02amBP Kxcgevjf631 mm[Hg]100-140[facility] 2024 11:02amBP Dlrlvvuno42 mm[Hg]60-100[facility] 2024 11:02amBMI (Body Mass Index)28.3 kg/r4Rqtwqgb 2024 11:02am Advance Directives Advance Directive Response Recorded Date/ Time Advance Directives No April 1:23pm Insurance Providers Guarantor Vasyl Broussard Address [address] [place] [id number] Info.Home Phone: Payer Policy Id Subscriber's Name Subscriber Id Effectiv e Date Expiration Date [employer] [facility] [id number] Vasyl Broussard [id number] Encounters Encounter Location(s) Arrival/Admit Date Discharge/Depart Date Provider(s) Non-patient / Non-visit -[facility] February 13, 2025 10:59am CONTREARS Cuevaeparted Physician/Provider Office Visit-[facility] [place] 2024 11:31amSeptember 2024 11:55amAIrasema Kyle- patient / Ivq-ixnpl-[facility] [employer]October 2024 1:22pmIrasema Lyons-patient / Lsd-juyys-[facility]October 2024 2:20pmCONTRERAS Lyonseparted Physician/Provider Office Visit-[facility] 2024 10:51amOct[facility] 2024 12:02pmJebradley Nuñez DO Recent Diagnosis Onset Date Admit Date Anemia of renal disease Unknown [facility] [place] 2024 11:31am CKD (chronic kidney disease) stage 3, GFR 30-59 ml/min Unknown February 20, 2025 11:31am Hyperlipidemia Unknown February 20, 2025 11:31am Hypertensive chronic kidney disease with stage 1 through stage 4 chronic ki Unknown February 20 11:31am Microscopic hematuria Unknown February 20, 2025 11:31am Secondary hyperparathyroidism Unknown Se ptember 2024 11:31am Anemia of renal disease Unknown March 14, 2025 10:51am Back pain associated with peripheral numbness Un known March 14, 2025 10:51am CAD (coronary artery disease) Unknown [facility] 2024 10:51am CKD (chronic kidney disease) stage 3, GFR 30-59 ml/min Unknown March 14, 2025 10:51am Current every day smoker Unknown March 14, 2025 10:51am Essential hypertension Unknown March 012024 10:51am Hyperlipidemia Unknown March 14 10:51am PAD (peripheral artery disease) Unknown March 14, 2025 10:51am Prostate cancer Unknown March 14 10:51am PVD (peripheral vascular dis ease) with claudication Unknown March 14, 2025 10:51am Secondary hyperparathyroidism Unknown Oc to[facility] 2024 10:51am Assessments Diagnosis Onset Date Resolution Status Admit Date Anemia of renal disease acuteSeptember 2024 11:31amCKD (chronic kidney disease) stage 3, GFR 30-59 ml/minacuteSeptember 2024 11:31amHyperlipidemiaacuteSeptember 2024 11:31amHypertensive chronic kidney disease with stage 1 through stage 4 chronic kiacuteSeptember 2024 11:31amMicroscopic hematuriaacuteSeptember 2024 11:31amSecondary hyperparathyroidismacuteSeptember 2024 11:31amAnemia of renal diseaseacuteOctober 2024 10:51amBack pain associated with peripheral numbnessacuteOctober 2024 10:51amCAD (coronary artery disease) acuteOctober 2024 10:51amCKD (chronic kidney disease) stage 3, GFR 30-59 ml/minacuteOctober 2024 10:51amCurrent every day smokeracuteOctober 2024 10:51amEssential hypertensionacuteOctober 2024 10:51amHyperlipidemia acuteOctober 2024 10:51amPAD (peripheral artery disease)acuteOctober 2024 10:51amProstate canceracuteOctober 2024 10:51amPVD (peripheral vascular disease) with claudicationacuteOctober 2024 10:51amSecondary hyperparathyroidismacuteOctober 2024 10:51am Plan of Treatment Author Theo Thakkar [facility] HospitalAuthoredSeptember 2024 12:13pm??He has a longstanding hypertension and atherosclerotic disease including CAD and PAD. 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 His serum creatinine is 1.79mg/dL. His renal function has declined either due to the progression of CKD or hemodynamic changes. I discussed with him the importance of good HTN control to slow down the progression of CKD. His renal ultrasound showed left renal cysts and nephrolithiasis but no evidence of obstruction. Blood pressure is controlled and he appears to be euvolemic. Will Continue current dose of the antihypertensive medications. [...] and vitamin D are within the goal. Will continue oral vitamin D. He has a prostate cancer and follows with the urology for surveillance. Will continue statins. I have advised him to continue to follow-up with PCP for monitoring of LFTs and lipid profile. Future Tests Future scheduled test information is [...] Protein Creat Ratio Ur Random February 20 11:48am 6 Months Parathyroid Hormone Intact February 20, 2025 11:48am 6 Months Uric Acid February 20, 2025 11:48am 6 M onths Vitamin D 25 Hydroxy Total February 20, 2025 11:48am 6 Months Creatine Kinase March 14, 2025 11:54am CMP with reflex to U7VEpdabps2024 11:34amC-Reactive ProteinOct2024 11:54amErythrocyte Sedimentation RateOct2024 11:54amLipid Panel March 14, 2025 11:34am Future Medications Future medication information is unavailable Patient Instructions Patient instructions are unavailable
--- OUTSIDE RECORDS SUMMARY | 2025-03-15 12:40 | XMS_ITS | Encounter Summary ---
Author Organization [facility] Address [address] [place] [address] Care Team Providers Care Fly Raiser Lockstitch Name Role Phone Shaikh AUBREE Storm Primary Care Provider [phone] Encounter Details DateTypeDepartmentCare Team (Latest Contact Info)Uztjxaydjqi21/15/2025 12:40 PM EDTFollow-Up Karon He [facility] [address] [place] [address] Vasile Watson MD [address] [place] [address] Lumbar spondylosis (Primary Dx); Chronic bilateral low back pain without sciatica Social History Tobacco UseTypesPacks/DayYears UsedDateSmoking Tobacco: Every DayCigarettes0.390 Passive Smoke Exposure: PastSmokeless Tobacco: Never Comments:I am in the process of quitting Alcohol UseStandard Drinks/WeekCommentsNot Currently0 (1 standard drink = 0.6 oz pure alcohol)Have not drank for yearsAH UtilitiesAnswerDate RecordedIn the past 12 months has the electric, gas, oil, or water [employer] threatened to shut off services in your home?No01/12/2024Humiliation, Afraid, Rape, and Kick questionnaireAnswerDate RecordedWithin the last year, have you been afraid of your partner or ex-partner?01/12/2024Emotionally AbusedNot on file01/12/2024 Physically AbusedNot on file01/12/2024Sexually AbusedNot on file01/12/2024 Overall Financial Resource Strain (CARDIA)AnswerDate RecordedHow hard is it for you to pay for the very basics like food, housing, medical care, and heating?Not hard at all01/12/2024HQ-2AnswerDate RecordedPatient Health Questionnaire-2 [id number] RecordedIn the past 12 months, has lack of transportation kept you from medical appointments or from getting medications?No01/12/2024Lack of Transportation (Non-Medical)Not on file 01/12/2024Housing Stability Vital SignAnswerDate RecordedUnable to Pay for Housing in the Last YearNot on file01/12/2024Number of Places Lived in the Last YearNot on file01/12/2024In the last 12 months, was there a time when you did not have a steady place to sleep or slept in ashelter (including now)?No 01/12/2024Hunger Vital SignAnswerDate RecordedWithin the past 12 months, you worried that your food would run out before you got the money to buymore.Never true01/12/2024an Out of Food in the Last YearNot on file01/12/2024Sex and Gender InformationValueDate RecordedSex Assigned at MokfzSvjn07/03/2024 10:58 AM EDTLegal ZrvKwaj7511/28/2021 12:39 AM EDTGender NpzudgddSdly41/03/2024 10:58 AM EDTSexual OrientationHeterosexual or Zmzivbjo72/03/2024 10:58 AM EDTdocumented as of this encounter Last Filed Vital Signs Vital SignReadingTime TakenCommentsBlood Xcppvinj442/8803/15/2025 12:56 PM EDT Whctl062603/15/2025 12:56 PM EDTTemperature--Respiratory Rate--Oxygen Saturation-- Inhaled Oxygen Concentration--Ebngdm82.8 kg (198 lb)03/15/2025 12:56 PM EDT Height--Body Mass Index28.41008/18/2024 2:10 PM EDTdocumented in this encounter Functional Status * BPAnswerDate of WvuvcmmvcmYegowy137/88/ 12:56 PM EDAdalgisa Lipscomb MA * PulseAnswerDate of BixkpluyucXjdxhn5313/15/2025 12:56 PM EDAdalgisa Lipscomb MA * Patient PositionAnswerDate of CojnocxsgfAtoixeVacenja65/15/2025 12:56 PM EDT Adalgisa Washington MA * BPAnswerDate of QpipfcjcmuLpttyw690/8803/15/2025 12:56 PM EDAdalgisa Lipscomb MA * PulseAnswerDate of LcvpvdagxwVqjzza9863/15/2025 12:56 PM EDAdalgisa Lipscomb MA * BP LocationAnswerDate of AssessmentAuthorLeft arm03/15/2025 12:56 PM EDT Adalgisa Washington MA * Patient PositionAnswerDate of JwsxrpyshnSdjkhfWthqthu91/15/2025 12:56 PM EDT Adalgisa Washington MA documented as of this encounter Progress Notes * Vasile Watson MD - 03/15/2025 12:40 PM EDT In person visit Chief complaint: follow up - had prior back surgery for synovial cyst - 2023 [place]: 79 y/o male - He had back surgery before - by [facility] 10/2023 Was left L4-5 for synovial cyst and also L5-S1 B He had one other one about - in [place] when they lived out there He says now he has a variety of probems He said that pain management offered him an electronic stimulator - spinal cord stimulator The problems he is having are - pain in the back and pain in the buttocks He said that since the surgery I did he is for sure about 80% better than before If he is trying to do things he gets some pain int eh buttocks area and then it can travel up to the lower back and the lower thoracic spine He tried ot have his pain doctor lower his hydrocodone - he is trying to get off it He said he realized her probably cannot get all the way off He still takes 1 pill BID (5/325 mg ) - used to be on 7.5 mg hydrocodone pills He can get some issues in the shoulder areas The lower back is the bigger problem He can urinate OK and pass his bowels OK ROS: As above Medical History[1] Surgical History[2] Medications Ordered Prior to Encounter[3] Allergies[4] Exam; BP 146/88 (BP Location: Left arm, Patient Position: Sitting, BP Cuff Size: Adult) Pulse 73 Wt 89.8 kg (198 lb) BMI 28.41 kg/m?? Age appropriate yes family present - his NC/AT Well developed, well nourished Mood/affect normal Awake, alert, oriented CN intact Speech intact Cognition intact Motor/sensory stable Ambulatory Station intact Coordination intact Reflexes: Review of films; I reviewed his CT There eis right side L3 pars defect - no spondylolisthesis There is foraminal stenosis at L4 and L5 A/P: 79 y/o male - still having some back problems- had prior lumbar surgery for synovial cyst - I reviewed his new imaging - I do not see any clear compressive pathology that I would recommend surgery for - and SCS may be an appropriate treatment choice - however he noted that his pain has been better since stopping his statin - it is also reasonable for him to just try to stay off the statin for a month or two to see if his pain stays away - prior to considering an invassive procedure. He was here about whether he should get a spinal cord stimulator - to see if there are other surgical options It isn't clear to me that he should have more lower back surgery Of note he did stop his statin and some of his pain has improved since then I told him to stay off the statin for a month or two and see how his pain is - if it is improved enough perhaps he doesn't need surgery or a SCS - if the pain worsens then I think a SCS is a reasonable option Vasile Watson MD Answers submitted by the patient for this visit: Back Pain Questionnaire (Submitted on 03/09/2025) Chief Complaint: Back pain Chronicity: chronic Onset: more than 1 year ago Frequency: constantly Progression since onset: waxing and waning Pain location: sacro-iliac Pain quality: aching, burning Pain - numeric: 6/10 Pain is: the same all the time Aggravated by: bending, position, lying down, standing, twisting Stiffness is present: in the morning, at night abdominal pain: No bladder incontinence: No bowel incontinence: No chest pain: Yes fever: No headaches: No leg pain: Yes numbness: Yes perianal numbness: No dysuria: No paresis: No pelvic pain: No paresthesias: No tingling: Yes weakness: No weight loss: No Risk factors: history of cancer [1] Past Medical History: Diagnosis Date Adverse effect of anesthesia 2013 Trouble controlling PB - drops very low Coronary artery disease 2012 Dental disease partial denture Diverticulitis Diverticulitis of colon Diverticulosis Hypertension 1996 Kidney disease Myocardial infarction (CMS/HCC) 1996 PONV (postoperative nausea and vomiting) Prostate cancer (CMS/HCC) PVD (peripheral vascular disease) PVD (peripheral vascular disease) left leg stent Stroke ([facility]) 2012 [2] Past Surgical History: Procedure Laterality Date ANGIOPLASTY 2022 BOWEL RESECTION 1985 CAROTID ENDARTERECTOMY 2013 COLON SURGERY 1985 CORONARY STENT PLACEMENT 1996 EYE SURGERY 2021 LUMBAR LAMINECTOMY 11/17/2023 right L3 hemilaminectomy with resection of synovial cyst, left L4 hemilaminectomy and partial medial and lateral facetectomy with foraminotomy, right L5 hemilaminotomy and partial medial and lateral facetectomy on 11/17/[address] Watson. SHOULDER SURGERY Bilateral 1979 and 1989 SPINAL CORD DECOMPRESSION TRANSURETHRAL RESECTION OF PROSTATE 2021 [3] Current Outpatient Medications on File Prior to Visit Medication Sig Dispense Refill amLODIPine (Norvasc) 10 mg tablet Take 1 tablet by mouth in the morning. aspirin 81 mg capsule Take 81 mg by mouth in the morning. Restart on Thursday11/22/2023 30 capsule 0 clopidogrel (Plavix) 75 mg tablet Take 1 tablet by mouth in the morning. cyclobenzaprine (Flexeril) 10 mg tablet 10 mg if needed at bedtime for muscle spasms. ergocalciferol (Vitamin D-2) 1.25 MG (21112 Units) capsule Take 1,250 mcg by mouth 1 (one) time perweek. HYDROcodone-acetaminophen ([place]) 7.5-325 mg tablet 1 tablet. nitroglycerin (Nitrostat) 0.4 mg SL tablet Refills(s) 0 baclofen (Lioresal) 10 mg tablet Take 10 mg by mouth at bedtime. (Patient not taking: Reported on 03/15/2025) valsartan (Diovan) 80 mg tablet Take 80 mg by mouth in the morning. [DISCONTINUED] omeprazole (PriLOSEC) [address] capsule TAKE 1 CAPSULE BY MOUTH IN THE MORNING BEFOREMEALS DO NOT CRUSH OR CHEW (Patient not taking: Reported on 03/15/2025) [DISCONTINUED] pravastatin (Pravachol) 10 mg tablet Take 10 mg by mouth at bedtime. (Patient not taking: Reported on 03/15/2025) [DISCONTINUED] varenicline (Chantix) 0.5 mg tablet Take 0.5 mg by mouth in the morning and at bedtime. Take with full glass of water. (Patient not taking: Reported on 03/15/2025) No current facility-administered medications on file prior to visit. [4] Allergies Allergen Reactions Ezetimibe GI intolerance Other reaction(s): Nausea/vomiting Gtacieg-Ajr-Xnq Reductase Inhibitors Other Muscle/Joint Pain Other Reaction(s): lipitor documented in this encounter Plan of Treatment Not on file documented as of this encounter Visit Diagnoses Diagnosis Lumbar spondylosis- Primary Lumbosacral spondylosis without myelopathy Chronic bilateral low back pain without sciatica documented in this encounter Care Teams Team MemberRelationshipSpecialtyStart DateEnd Date Shaikh Storm MD PCP - GeneralFamily Medicine09/02/23documented as of this encounter
[2025-03-23] VITALS (12 sets, daily range): BP systolic 135–152; BP diastolic 74–96; PULSE 66–88; TEMP 36.4–36.6; O2SAT 94–98; BMI 28.0
--- OUTSIDE RECORDS SUMMARY | 2025-03-23 06:58 | XMS_ITS | CCD ---
Author Organization [facility] Care Team Providers Care Process Inspector Name Role Phone Sterling Vizcaino Primary Care Physician [phone] Theo Thakkar Unavailable Dotty MAK [facility] Primary Care Provider Barbara Johnston MD Unavailable YAHAIRA STORMIKH Primary Care Physician Dotty MAK [facility] Primary Care Provider [phone] Barbara Johnston MD Unavailable Constance Beverly Unavailable Unavailable Dotty MAK [facility] Primary Care Provider Barbara Johnston MD R Unavailable Constance Beverly Unavailable Unavailable MD Dotty [facility] Primary Care Provider MD Zeinab Justice Attending Provider MD Lyla Nazario Attending Provider LAKSHMIPATHY ., NARENDRANATH Attending Kiera vailable LAKSHMIPATHY ., NARENDRANATH Admitting Kiera vailable HALKER .HUBERT Consulting Unavailable [facility] Primary Care Unavailable OLIVA ., DR HOSEA Davison Admitting Unavailable HOBBS .LOPEZ Consulting Unavailable OLIVA ., DR HOSEA Davison Attending Unavailable [facility] Primary Care Unavailable OLIVA ., DR HOSEA Davison Admitting Unavailable OLIVA ., DR HOSEA Davison Consulting Unavailable [facility] Primary Care Unavailable OLIVA ., DR HOSEA Davison Attending Unavailable [facility] Consulting Unavailable HOBBS ., LOPEZ Consulting Unavailable OLIVA ., DR HOSEA Davison Attending Unavailable OLIVA ., DR HOSEA Davison Admitting [facility] Primary Care Unavailable OLIVA ., DR HOSEA Davison Consulting Unavailable OLIVA ., DR HOSEA Davison Admitting Unavailable OLIVA ., DR HOSEA Davison Consulting [facility] Primary Care Unavailable OLIVA ., DR HOSEA Davison Attending Unavailable [facility], [facility] H Consulting Unavailable JONATHAN MARTIN Consulting Unavailable HOBBS ., LOPEZ Consulting Unavailable OLIVA ., DR HOSEA Davison Admitting [facility] Primary Care Unavailable OLIVA ., DR HOSEA Davison Attending Unavailable HOBBS ., LOPEZ Consulting Unavailable OLIVA ., DR HOSEA Davison Attending Unavailable OLIVA ., DR HOSEA Davison Admitting [facility] Primary Care Unavailable OLIVA ., DR HOSEA Davison Attending Unavailable OLIVA ., DR HOSEA Davison Admitting [facility] Primary Care Unavailable OLIVA ., DR HOSEA Davison Consulting Unavailable HOBBS ., LOPEZ Consulting Unavailable OLIVA ., DR HOSEA Davison Attending Unavailable OLIVA ., DR HOSEA Davison Admitting [facility] Primary Care Unavailable OLIVA ., DR HOSEA Davison Admitting Unavailable [facility] Primary Care Unavailable OLIVA ., DR HOSEA Davison Attending Unavailable OLIVA ., DR HOSEA Davison Admitting Unavailable OLIVA ., DR HOSEA Davison Consulting Un[facility] Primary Care Unavailable OLIVA ., DR HOSEA Davison Attending Unavailable [facility], [facility] Primary Care Unavailable JOHNSTON ., DR JIMENEZ Consulting Unavailable JOHNSTON ., DR JIMENEZ Attending Unavailable JOHNSTON ., DR JIMENEZ Admitting Unavailable VIVIANTHEO Consulting Unavailable VIVIANTHEO Attending Unavailable VIVIAN, THEO Admitting Unavailable [facility] Primary Care Unavailable RUT KIRBY Attending Unavailable RUT KIRBY Admitting Unavailable [facility], [facility] Primary Care Unavailable MD Justice Storm Primary Care Provider MD Justice Storm Other Provider ABE Ferrera Attending Provider [phone] Anesthesiologist, Temporary Attending Provider U Abdi Augustineie Unavailable MD Lyla Nazario Attending Provider MD Jose Martin Mchugh Attending Provider MD Theo Thakkar Attending Provider Jose Martin Mchugh Unavailable MD Yahaira Stormikh Primary Care Provider Anesthesiologist, Temporary Attending Provider U MD Lyla Carvalho Attending Provider MD Jose Martin Mchugh Attending Provider MD Theo Thakkar Attending Provider MD Dotty [facility] Primary Care Provider MD Justice Storm Attending Provider Dotty MAK [facility] Primary Care Provider JOSE NICHOLS [facility]erring [facility] Unavailable KODI REYNOLDS Attending Unavailable Dotty MAK [facility] Primary Care Provider CHAIM GRAYSON Referring Unavailable [facility] Primary Care Unavailable CHAIM GRAYSON Referring [facility] Primary Care Unavailable CHAIM GRAYSON Referring Unavailable [facility] Primary Care Unavailable Nicolette MAK, Adalid Powers Attending Unavailable Dotty MAK [facility] Primary Care Provider MD Yahaira Stormikh Primary Care Provider MD Justice Storm Attending Provider MD Barbara Johnston Referring Provider Yahaira Storm MDikh Primary Care Provider NO FAMILY, PHYSICIAN Primary Care Provider Unava MD Theo Dill Attending Provider MS. NASIR WARD Primary Care P hysician Barbara JOHNSTON Attending Un[facility]av[facility] e BRITNI, CLAIRE E Admitting Unavailable BRITNI, CLAIRE E Attending Unavailable BRITNI, CLAIRE E Admitting Unavailable BRITNI, CLAIRE E Attending Unavailable Galthao, Karime Stone Admitting Unavailable Galea, Karime Stone Attending Unavailable [facility] Unavailabl e Barbara JOHNSTON Attending Unavailable BRITNI, CLAIRE E Attending Unavailable Galea, Karime Stone Attending Unavailable [facility] Unavailabl teresa Avalos MD, Brian Primary Care Provider Ed FINANCIAL LEGAL ASSISTANT, [facility] Unavailable Brian Avalos MD Primary Care Provider [phone] Farooq Quezada PA-C Emergency Provider NASIR WARD Attending Unavailabl e SHAIKH STORM Attending Unavailable SHAIKH STORM Attending Unavailable ED, NASIR Attending Unavailabl e ED, NASIR Attending Unavailabl e AMBROSIO SCALES Primary Care Physician [phone] Brian Avalos MD Primary Care Provider Farooq Quezada PA-C Emergency Provider Theo Thakkar MD Attending Provider Cherie William Attending Unavailable OrCherie loving Admitting Unavailable BRITNI, CLAIRE E Attending Unavailable BRITNI, CLAIRE E Admitting Unavailable Barbara JOHNSTON Attending Unavailable Shaikh Storm MD Primary Care Provider BRITNICLAIRE SHRESTHA Attending Unavailable BRITNI, CLAIRE E Admitting Unavailable Ward FINANCIAL LEGAL ASSISTANT, [facility] Unavailable [phone] Barbara Johnston MD Unavailable [phone] Hyun NAZARIO Attending Unavailable SHAIKH STORM Primary Care Unavailable Hyun NAZARIO Referring Unavailable [facility] Primary Care Unavailable Brian Avalos MD Primary Care Provider Ed FINANCIAL LEGAL ASSISTANT, Nasir Unavailable Bailey MAK, Brian Primary Care Provider Theo Thakkar MD Attending Provider [phone] Barbara JOHNSTON Attending Unavailable NASIR WARD [facility] UnavailCLAIRE Powers Attending Unavailable ED, [facility] UnavailCLAIRE Powers Attending Unavailable Farooq Quezada Attending Unavailable Farooq Quezada Admitting Unavailable Brian Avalos Primary Care Unavailable Brian Avalos Primary Care Unavailable Theo Thakkar Attending Unavailable Vivian, Theo Admitting Unavailable Barbara JOHNSTON Attending Unavailable Barbara JOHNSTON Attending Unavailable Barbara JOHNSTON Attending Unavailable Barbara JOHNSTON Referring Unavailable Barbara JOHNSTON Admitting Unavailable Barbara JOHNSTON Attending Unavailable Barbara Johnston MD Attending Provider [phone] Savannah DOLucinda Primary Care Provider [facility] DO Lucinda Attending Provider JOSE HECTOR Attending Unavailable CHAIM GRAYSON Referring Unavailable SHAIKH STORM Primary Care Unavailable VASILE MADERA Referring Unavailable VASILE MADERA Attending Unavailable NICKOLAS BENÍTEZ Attending Unavailable Allergies Allergy ClassificationReported Allergen(s)Allergy TypeDate of OnsetReaction(s) Facility (20 sources)ezetimibe; Translations: [EZETIMIBE]Drug Psflclb20-94-6966KZ intolerance, Nausea/vomitingS[facility] (8 sources)HMG-CoA reductase inhibitor; Translations: [LQYTFDA-TWF-PHC REDUCTASE INHIBITORS]Drug Kyzzubutmda02-73-1235RfqfuGqwdumcvit [facility] Work Phone: (15 sources)HMG-CoA reductase inhibitorDrug Ycrdqccvryz05-88-6242UopsvJLJF Healthcare Medications Current Medications MedicationDrug Class(es)DatesSig (Normalized)Sig (Original)acetaminophen 325 mg oral tablet (14 sources)Start: 91-22-0779gzeh 2 tablets by mouth every eight hours acetaminophen (Tylenol) 325 MG tablet Take 650 mg by mouth every 8 (eight) hours 11/18/2023 Activeacetaminophen 325 mg / HYDROcodone bitartrate 5 mg oral tablet (20 sources)Opioid AgonistStart: 00-33-0079xumh 1 tablet by mouth once daily as neededHydrocodone-Acetaminophen 5-325 mg tablet Active 1 TAB PO Daily as needed February 29, 2024 12:00am Complies with drug therapyStart: 01-14-2024 End: 59-56-7280PSKRPpwqtwz-acetaminophen (Bricelyn) 5-325 MG tablet TAKE 1 TABLET BY MOUTH 2 TO 3 TIMES A DAY FOR 14 DAYS 01/14/2024 07/13/2024 DiscontinuedStart: 01-08-2023 End: 97-97-9161whxm 1 tablet by mouth three times daily as needed for pain Hydrocodone-Acetaminophen 7.5-325 mg tablet Discontinued 1 TAB PO Three times daily as needed for Pain February 06, 2023 12:00am February 29, 2024 11:39amStart: 11-09-2021 End: 14-30-9414qxxj 1 tablet by mouth twice daily as needed for painHydrocodone- Acetaminophen 5-325 mg tablet Discontinued 1 TAB PO Twice daily as needed for Pain 2021 12:00am February 06, 2023 11:57amStart: 11-09-2021 End: 53-19-4288RVATVvzvtpo-acetaminophen (NORCO) 5-325 mg per tablet 11/09/2021 12/15/2023 Discontinued (Discontinued by another Health Care Provider)Start: 05-65-5580pdrx 1 tablet by mouth every six hoursNorco 5/325 Tab Oral, q6hr, Refill(s) 0 Start Date: 03/22/21 Status: Ordered Repeat number: 1Start: 47-26-1081Yfcpa 5/325 Tab Oral, q6hr, Refill(s) 0 Start Date: 03/22/21 Status: OrderedStart: 40-44-8677Tkyls 5/325 Tab Oral, q6hr, Refill(s) 0 Start Date: 03/22/21 Status: Orderedtake 1 tablet by mouth every six hours as neededNorco 5- 325 MG 1 tablet as needed Orally every 6 hrs ActiveComment on above:TAKE 1 TABLET BY MOUTH TWICE DAILY NEEDED FOR LUMBAR RADICULOPATHYTAKE 1 TABLET BY MOUTH THREE TIMES DAILY NEEDED MUST LAST 30 DAYSamoxicillin 500 mg oral capsule (2 sources)Penicillin-class AntibacterialStart: 16-06-0617pejw 1 capsule by mouth every eight hoursAmoxicillin 500 MG 1 capsule Orally every 8 hrs for 5 day(s) Mar, Activeaspirin 81 mg delayed release oral tablet (20 sources)Platelet Aggregation Inhibitor, Nonsteroidal Anti-inflammatory Drug Start: 59-19-0154ttxm 1 tablet by mouth once dailyAspirin (Aspir-81) 81 mg Tablet,Delayed Release (Dr/Ec) Active 81 MG PO Daily February 06, 2023 12:00am Complies with drug therapyStart: 45-22-6646plbs 1 mg by mouth every four hours aspirin 81 mg oral capsule mg cap(s), Oral, q4hr, Refills(s) 0 Start Date: 03/22/21 Status: OrderedRepeat number: 1Start: 50-10-4704dmwdjrb 81 mg cap Take by mouth. 03/22/2021 ActiveASPIRIN 81 MG chewable tablet Chew 81 mg in the morning. Activetake 1 tablet by mouth once dailyAspirin 81 81 MG 1 tablet Orally Once a day ActiveComment on above:Take by mouth.cephalexin 500 mg oral capsule (1 source)Cephalosporin AntibacterialStart: 08-08-2024 End: 63-51-7025wgvv 1 capsule by mouth every twelve hoursKeflex 500 mg Cap 500 mg = 1 cap(s), Oral, q12hr, X 7 day(s), # 14 cap(s), Refills(s) 0, Pharmacy: [id number], 178, cm, 08/08/24 12:38:00 EDT, Height/Length Dosing, 90.4, kg, 08/08/24 12:38:00 EDT, Weight Dosing Start Date: 08/08/24 Stop Date: 08/15/24 Status: Orderedciprofloxacin 500 mg oral tablet (1 source)Quinolone AntimicrobialStart: 05-13-2022 End: 48-15-9691dhzo 1 tablet by mouth twice dailyciprofloxacin HCl (CIPRO) 500 mg tablet Take 1 tablet by mouth twice daily for 14 days. 20 tablet 05/27/2022 ActiveComment on above:Take 1 tablet by mouth twice daily for 14 days.clopidogrel 75 mg oral tablet (20 sources)P2Y12 Platelet InhibitorStart: 03-23-2023 End: 31-31-9661ihei 1 tablet by mouth once dailyClopidogrel 75 mg tablet Active 75 MG PO Daily 90 180 April 11, 2024 3:46pm Complies with drugtherapy Clopidogrel Bisulfate ActiveCranberry preparation (4 sources)Non-Standardized Food Allergenic Extract, Non-Standardized Plant Allergenic ExtractStart: 32-82-2206Dhm cranberry Refill(s) 0 Start Date: 09/18/23 Status: Orderedcyclobenzaprine hydrochloride 10 mg oral tablet (1 source)Muscle RelaxantStart: 30-62-8345zreu 1 tablet by mouth once daily at bedtimeCyclobenzaprine 10 mg tablet Active 10 MG PO Daily at bedtime March 14, 2025 12:00am Complies with drug therapydesmopressin acetate 0.1 mg oral tablet (7 sources)Vasopressin Analog, Factor VIII ActivatorStart: 05-05-2023 End: 71-37-7722ccno 1 tablet by mouth once daily at bedtimedesmopressin (DDAVP) 0.1 mg tablet Take 1 tablet (100 mcg) by mouth once daily at bedtime. 05/05/2023 08/30/2024 Discontinued (Therapy completed)Start: 04-21-2023 End: 98-61-6886recu 0.5 tablet by mouth at bedtimedesmopressin 0.1 mg oral tablet 0.05 mg = 0.5 tab(s), Oral, As Directed, take a half tab at bedtime, X 10 day(s), # 5 tab(s), Refills(s) 0, Pharmacy: [id number], 178, cm, 04/21/23 8:36:00 EST, Height/Length Dosing, 92, kg, 04/21/23 8:36:00 EST, Weight Dosing Start Date: 04/21/23 Stop Date: 05/01/23 Status: OrdereddiazePAM 5 mg oral tablet (3 sources)BenzodiazepineStart: 03-03-2022 End: 71-52-0209dsflgIGG (VALIUM) 5 mg tablet Indications: Malignant neoplasm of prostate (HCC) Take 1 tablet by mouth as directed for 12 days. Take 1 tablet by mouth one hour prior to procedure. 12 tablet 0 03/03/2022 03/15/2022 Active Comment on above:Take 1 tablet by mouth as directed for 12 days. Take 1 tablet by mouth one hour prior to procedure.doxycycline hyclate 100 mg oral capsule (8 sources)Tetracycline-class DrugStart: 04-07-2024 End: 54-67-0496mpro 1 capsule by mouth twice dailydoxycycline hyclate 100 mg Cap 100 mg = 1 cap(s), Oral, BID, X 7 day(s), # 14 cap(s), Refills(s) 0,Pharmacy: [id number], 178, cm, 09/18/23 10:55:00 EDT, Height/Length Dosing, 92, kg,09/18/23 10:55:00 EDT, Weight Dosing Start Date: 04/07/24 Stop Date: 04/14/24 Status: OrderedStart: 02-29-2024 End: 57-90-3651fkrl 1 tablet by mouth twice dailyDoxycycline Hyclate 100 mg tablet Discontinued 100 MG PO Twice daily February 29, 2024 12:00am August 15, 2024 10:38amergocalciferol 1.25 mg oral capsule (20 sources)Provitamin D2 CompoundStart: 03-11-2024 End: 55-58-5681iocu 1 capsule by mouth every weekErgocalciferol (Vitamin D2) 1,250 mcg (50,000 unit) capsule Active 0 .ROUTE .COMPLEX October 03, 2024 2:51pm TAKE 1 CAPSULE BY MOUTH ONCE A WEEK Complies with drug therapyStart: 03-11-2024 take 1 capsule by mouth every weekErgocalciferol (Vitamin D2) 1,250 mcg (50,000 unit) capsule Active 0 .ROUTE .COMPLEX March 11, 2024 10:14am TAKE 1 CAPSULE BY MOUTH ONCE A WEEKStart: 02-90-9286twmy 1 capsule by mouth every week Ergocalciferol (Vitamin D2) 1,250 mcg (50,000 unit) capsule Active 0 .ROUTE .COMPLEX March 11, 2024 9:14am TAKE 1 CAPSULE BY MOUTH ONCE A WEEKStart: 09-15-2023 End: 80-27-6483Dicztnuynqwxit (Vitamin D2) 1,250 mcg (50,000 unit) capsule Discontinued 85297 UNIT PO Once a week September 15, 2023 5:43pm March 11, 2024 10:15amStart: 09-15-2023 End: 73-45-1305hxfd 21014 [IU] by mouth every weekErgocalciferol (Vitamin D2) Active 17647 UNIT PO Once a week September 15, 2023 5:43pmStart: 44-89-4441sdhi 1 capsule by mouth every weekErgocalciferol 1.25 MG (51631 UT) 1 capsule Orally Q week for 90 days Mar, Activetake 1 capsule by mouth every week ergocalciferol (Vitamin D-2) 1.25 MG (27452 UT) capsule Take 1 capsule (1,250 mcg) by mouth 1 (one)time per week. Activeergocalciferol, vitamin D2, (VITAMIN D2 ORAL) (4 sources)ergocalciferol, vitamin D2, (VITAMIN D2 ORAL) Take by mouth. Active ergocalciferol, vitamin D2, (VITAMIN D2 ORAL) Take by mouth. 0 ActiveComment on above:Take by mouth.ezetimibe 10 mg oral tablet (2 sources)Dietary Cholesterol Absorption InhibitorStart: 77-03-8433dehj 1 mg by mouth once dailyezetimibe 10 mg Tab mg tab(s), Oral, Daily, Refills(s) 0 Start Date: 03/25/21 Status: Orderedferrous sulfate 325 mg oral tablet (1 source)Start: 84-68-2272wrdr 1 tablet by mouth every other dayFerrous Sulfate (Feosol) 325 mg (65 mg iron) tablet Active 325 MG PO .QOD March 14, 2025 12:00am Complies with drug therapygabapentin 100 mg oral capsule (20 sources)Anti-epileptic AgentStart: 02-11-2023 End: 83-76-1862cluf 1 capsule by mouth twice dailygabapentin (Neurontin) 100 mg capsule Take 1 capsule (100 mg) by mouth 2 times a day. 02/11/2023 08/30/2024 Discontinued (Therapy completed)Start: 02-06-2023 End: 21-02-7903gtpe 1 capsule by mouth once dailyGabapentin 100 mg Capsule Discontinued 100 MG PO Daily February 06, 2023 12:00am August [id number] Start: 61-17-8273urjv 1 mg by mouth once dailyGabapentin Active MG PO Daily February 06, 2023 12:00amhydroCHLOROthiazide 12.5 mg / lisinopril 20 mg oral tablet (2 sources)Thiazide Diuretic, Angiotensin Converting Enzyme InhibitorStart: 94-10-3216nigz 1 tablet by mouth once dailyhydrochlorothiazide-lisinopril 12.5 mg-20 mg Tab tab(s), Oral, Daily, Refill(s) 0 Start Date: 03/22/21 Status: Orderediv contrast (will be provided with radiology test) (3 sources)Start: 01-06-2023 End: 94-18-5685vs contrast (will be provided with radiology test) Indications: Spinal stenosis of [...] MR contrast administration guidelines link. 1 Each 01/07/2023 ActiveStart: 11-21-2022 End: 46-93-0099pc contrast (will be provided with radiology test) [...] guidelines link. 1 Each 0 11/21/2022 11/22/2022 ActiveStart: 11-19-2022 End: 42-26-2228dg contrast (will be provided with radiology test) [...] guidelines link. 1 Each 0 11/19/2022 11/20/2022 ActiveComment on above:MRI LSP Inject, intravenously, once for 1 dose. No IV access, insert saline lock prior to the beginning of sedation, infusion, injection of imaging exam. Discontinue saline lock post exam. If Pt. hasa central line or IVAD, may access for administration according to line specific nursing protocol. Once exam is complete flush line and de-access according to line specific nursing protocol in the MRcontrast administration guidelines link. montelukast 10 mg oral tablet (2 sources)Leukotriene Receptor AntagonistStart: 34-79-3846dxso 1 mg by mouth once dailymontelukast 10 mg Tab mg tab(s), Oral, Daily, Refills(s) 0 Start Date: 03/25/21 Status: Orderednitroglycerin 0.4 mg sublingual tablet (12 sources)Nitrate VasodilatorStart: 76-05-6541xkoglujzccibd 0.4 mg sublingual Tab Refills(s) 0 Start Date: 09/18/23 Status: Ordered Repeat number:1Start: 08-18-2023 End: 15-17-4730Qynmvefkafaee 0.4 mg tablet, sublingual Active 0.4 MG SUBLINGUAL Q5M August 15, 2024 12:00am do not exceed 3 doses per episode Complies with drug therapyOxybutinin XL 5mg (4 sources)Oxybutinin XL 5mg ONCE A DAY ActiveOxybutinin XL 5mg Activeoxybutynin chloride 5 mg oral tablet (18 sources)Cholinergic Muscarinic AntagonistStart: 47-01-8626iebz 2 tablets by mouth at bedtimeoxybutynin 5 mg Tab 10 mg = 2 tab(s), Oral, Bedtime, # 60 tab(s), Refills(s) 3, Pharmacy: [id number], 178, cm, 02/11/23 14:50:00 EDT, Height/Length Dosing, 92, kg, 02/11/23 14:50:00 EDT, Weight Dosing Start Date: 02/11/23 Status: OrderedStart: 02-06-2023 End: 54-46-1518chze 1 tablet by mouth once daily at bedtimeOxybutynin Chloride 5 mg Tablet Discontinued 5 MG PO Daily at bedtime February 06, 2023 12:00am October 15, 2023 9:17amStart: 06-17-2781ahvl 1 tablet by mouth at bedtimeoxybutynin 5 mg Tab 5 mg = 1 tab(s), Oral, Bedtime, # 30 tab(s), Refills(s) 2, Pharmacy: [id number], 178, cm, 12/03/22 15:00:00 EDT, Height/Length Dosing, 93, kg, 12/03/22 15:00:00 EDT, Weight Dosing Start Date: 12/03/22 Status: Orderedpravastatin sodium 40 mg oral tablet (20 sources)HMG-CoA Reductase InhibitorStart: 03-23-2023 End: 87-12-1801ymij 1 tablet by mouth once daily in the eveningPravastatin 40 mg Tablet Active 40 MG PO Every evening 90 180 March 23, 2023 12:00am Complies with drug therapyStart: 03-22-2021 End: 82-67-2782bfqp 1 tablet by mouth once dailyPravastatin 10 mg tablet Discontinued 10 MG PO Daily November 22, 2021 12:00am March 23, 2023 10:03am Comment on above:pravastatin 10 mg tabletsildenafil 50 mg oral tablet (7 sources)Phosphodiesterase 5 InhibitorStart: 04-21-2023 End: 27-05-0468xeppwgvxhn (Viagra) 50 mg tablet Take 1 tablet (50 mg) by mouth if needed. 04/21/2023 08/30/2024 Discontinued (Therapy completed)tadalafil 20 mg oral tablet (4 sources)Phosphodiesterase 5 InhibitorStart: 24-36-7352Swebvc 20 mg Tab 20 mg = 1 tab(s), Oral, As Directed, Do not exceed 20mg within 48 hours., # 30 tab(s), Refills(s) 1, Pharmacy: [id number], 178, cm, 07/07/23 9:25:00 EST, Height/Length Dosing, 92, kg, 07/07/23 9:25:00 EST, Weight Dosing Start Date: 07/07/23 Status: Orderedvalsartan 80 mg oral tablet (20 sources)Angiotensin 2 Receptor BlockerStart: 06-04-2023 End: 71-46-1648bsbw 1 tablet by mouth once dailyValsartan 80 mg tablet Active 80 MG PO Daily March 14, 2025 12:00am Complies with drug therapyVarenicline (Chantix Starting Month Box) 0.5 mg (11)- 1 mg (42) tablets,dose pack (1 source)Start: 39-96-2452msbn 1 tablet by mouth onceVarenicline (Chantix Starting Month Box) 0.5 mg (11)- 1 mg (42) tablets,dose pack Active 0 PO per pa ckage directions February 29, 2024 12:00am PO PER PKG DIRvitamin B12 (2 sources)Vitamin R12Yrygw: 07-98-0848Dkgbmta B12 Refills(s) 0 Start Date: 03/22/21 Status: OrderedVitamin D2 50,000 intl units (1.25 mg) oral capsule (9 sources)Start: 25-85-3996bixl 1 capsule by mouth every weekVitamin D2 50,000 intl units (1.25 mg) oral capsule International_Unit cap(s), Oral, qWeek Start Date: 04/21/23 Status: Ordered Repeat number: 1Start: 94-95-5934cnfh 1 capsule by mouth every weekVitamin D2 50,000 intl units (1.25 mg) oral capsule International_Unit cap(s), Oral, qWeek Start Date: 04/21/23 Status: Ordered Completed/Discontinued Medications MedicationDrug Class(es)DatesSig (Normalized)Sig (Original)amLODIPine 10 mg oral tablet (20 sources)Dihydropyridine Calcium Channel BlockerStart: 91-45-8998cpxf 1 mg by mouth once dailyamLODIPine 5 mg Tab mg tab(s), Oral, Daily, Refills(s) 0 Start Date: 03/22/21 Status: OrderedStart: 03-22-2021 End: 35-66-3763hnck 1 tablet by mouth once dailyAmlodipine 10 mg tablet Discontinued 10 MG PO Daily November 22, 2021 12:00am March 09, 2025 8:08am Comment on above:amlodipine 10 mg tabletatenolol 50 mg oral tablet (20 sources)beta-Adrenergic BlockerStart: 03-22-2021 End: 35-46-3648qkph 1 tablet by mouth once dailyAtenolol 50 mg tablet Discontinued 50 MG PO Daily November 22, 2021 12:00am October 15, 2023 9:17amComment on above:atenolol 50 mg tabletbaclofen 10 mg oral tablet (20 sources)gamma-Aminobutyric Acid-ergic AgonistStart: 11-04-2021 End: 87-62-6279ueki 1 tablet by mouth once daily at bedtimeBaclofen 10 mg tablet Discontinued 10 MG PO Daily at bedtime November 22, 2021 12:00am August 15, 2024 10:38amStart: 11-04-2021 End: 18-01-3068eflg 1 mg by mouth three times dailybaclofen 10 mg Tab mg tab(s), Oral, TID, Refills(s) 0 Start Date: 11/04/21 Status: OrderedComment on above: baclofen 10 mg tabletlisinopril 20 mg oral tablet (20 sources)Angiotensin Converting Enzyme InhibitorStart: 03-13-2025 End: 78-96-9574pvdu 1 tablet by mouth once dailyLisinopril 20 mg tablet Discontinued 20 MG PO Daily March 13, 2025 12:00am March 14, 2025 11 :06amStart: 03-25-2021 End: 47-56-7454rscntkvowa (ZESTRIL, PRINIVIL) 20 mg tablet q 24 HR. 03/25/2021 12/15/2023 Discontinued (Discontinued by another Health Care Provider)Start: 03-25-2021 End: 06-17-1830ezoo 1 tablet by mouth once dailyLisinopril 20 mg tablet Discontinued 20 MG PO Daily November 22, 2021 12:00am October 15, 2023 9:17amComment on above:q 24 HR.ofloxacin 3 mg/ml ophthalmic solution (5 sources)Quinolone AntimicrobialStart: 07-14-2024 End: 62-38-4315ddzm 0.3 drop(s) into the eye(s) every six hoursOfloxacin 0.3 % drops Discontinued 2 DROPS EYE-LEFT Every 6 hours July 14, 2024 1:00am August 15, 2024 10:38am 2 drps Left Eye;Start: 07-14-2024 End: 12-59-6125akgy 0.3 drop(s) into the eye(s) every six hoursOfloxacin 0.3 % drops Discontinued 2 DROPS EYE-LEFT Every 6 hours July 14, 2024 1:00am August 15, 2024 10:38am 2 drps Left Eye;omeprazole 40 mg delayed release oral capsule (16 sources)Proton Pump InhibitorStart: 09-28-2023 End: 45-81-0666uips 1 capsule by mouth once dailyOmeprazole 40 mg capsule,delayed release(DR/EC) Discontinued 40 MG PO Daily October 15, 2023 12:00am February 29, 2024 11:41amoxyCODONE hydrochloride 5 mg oral tablet (9 sources)Opioid AgonistStart: 12-02-2023 End: 28-99-2650mlio 1 tablet by mouth every six hours as neededoxyCODONE IR (ROXICODONE) 5 mg immediate release tablet TAKE 1 TO 2 TABLETS BY MOUTH EVERY 6 HOURS NEEDED for up to 7 (SEVEN) days 12/02/2023 01/18/2025 Discontinued (Discontinued by Patient)pregabalin 50 mg oral capsule (20 sources)Start: 03-13-2025 End: 99-78-7142ghwt 1 capsule by mouth twice dailyPregabalin (Lyrica) 50 mg capsule Discontinued 50 MG PO Twice daily March 13, 2025 12:00am March 14, 2025 11:06amStart: 01-08-2023 End: 51-41-3790ijye 1 capsule by mouth once daily at bedtimepregabalin (LYRICA) 75 mg capsule Take 1 capsule by mouth once daily. At bedtime. 0 01/08/202312/14 Discontinued (Discontinued by another Health Care Provider)Start: 11-22-2021 End: 60-45-4007xynl 1 capsule by mouth twice dailyPregabalin 50 mg capsule Discontinued 50 MG PO Twice daily November 22, 2021 12:00am February 06, 2023 11:58amStart: 60-69-0480hjxs 1 capsule by mouth twice dailyLyrica 25 mg Cap 25 mg = 1 cap(s), Oral, BID, # 60 cap(s), Refills(s) 0 Start Date: 11/04/21 Status: O rderedComment on above:Take 50 mg by mouth twice daily.Take 1 capsule by mouth once daily. At bedtime.Take 50 mg by mouth two times a day.regadenoson (Lexiscan) injection 0.4 mg (2 sources)Start: 06-18-2023 End: 30-16-2238vsaxsmyfmly (Lexiscan) injection 0.4 mgterazosin 10 mg oral capsule (20 sources)alpha-Adrenergic BlockerStart: 10-04-2021 End: 54-05-5546baoq 1 capsule by mouth once daily at bedtimeTerazosin 10 mg capsule Discontinued 10 MG PO Daily at bedtime November 22, 2021 12:00am October 15, 2023 9:17amStart: 01-55-9473hwre 1 mg by mouth once daily at bedtimeterazosin 2 mg Cap mg cap(s), Oral, Once a day (at bedtime), Refills(s) 0 Start Date: 03/22/21 Status: Orderedvarenicline 1 mg oral tablet (12 sources)Partial Cholinergic Nicotinic AgonistStart: 10-22-2023 End: 34-89-7982kzfy 1 tablet by mouth onceVarenicline Tartrate (Chantix Starting Box) 0.5 mg (11)- 1 mg (42) tablets,dose pack Discontinued 0 PO per package directions February 29, 2024 12:00am August 15, 2024 10:38am PO PER PKG DIRVarenicline Tartrate (Chantix Starting Month Box) 0.5 mg (11)- 1 mg (42) tablets,dose pack (3 sources)Start: 02-29-2024 End: 14-01-8435jusw 1 tablet by mouth onceVarenicline Tartrate (Chantix Starting Box) 0.5 mg (11)- 1 mg (42) tablets,dose pack Discontinued 0 PO per package directions February 29, 2024 12:00am August 15, 2024 10:38am PO PER PKG DIRStart: 00-49-4646gsgv 1 tablet by mouth onceVarenicline Tartrate (Chantix Starting Month Box) 0.5 mg (11)- 1 mg (42) tablets,dose pack Active 0PO per package directions February 29, 2024 12:00am PO PER PKG DIRStart: 02-29-2024 take 1 tablet by mouth onceVarenicline Tartrate (Chantix Starting Month Box) 0.5 mg (11)- 1 mg (42) tablets,dose pack Active 0PO per package directions February 28, 2024 11:00pm PO PER PKG DIR Problems Active Problems Problem ClassificationProblemDateDocumented DateEpisodic/ChronicAbdominal hernia (18 sources)Umbilical hernia; Translations: [Umbilical hernia without obstruction or gangrene]Onset: 054167-53-4344GahousftJxfqa cerebrovascular disease (20 sources)Cerebrovascular accident; Translations: [Cerebral infarction, unspecified]Onset: 534900-87-5964DpnqpaaIwgihvi disorders (18 sources)Anxiety; Translations: [Anxiety disorder, unspecified]Onset: 507034-23-1816NxlwszfIlehji of prostate (20 sources)Malignant neoplasm of prostate; Translations: [Malignant tumor of prostate]Onset: 17-92-5293NfhdlkdRhfrpkw on above:hx radiation treatments Cataract (20 sources)Age-related nuclear cataract of left eye; Translations: [Age-related nuclear cataract, left eye]Onset: 186452-82-0092JnhjzppRkvvvse kidney disease (20 sources)Chronic kidney disease stage 3; Translations: [Stage 3 chronic kidney disease]Onset: 481375-17-8770DysgpidZjjwdyy kidney disease (6 sources)Chronic kidney disease; Translations: [Chronic kidney disease, stage III (moderate)]Onset: 10-24-2021 Resolved: 63-56-1394Wbakcnoo atherosclerosis and other heart disease (20 sources)History of myocardial infarction; Translations: [Old myocardial infarction]Onset: 294189-60-7714CbrxdgvWrdeckfnfm and other anemia (1 source)Anemia in chronic kidney disease; Translations: [Anemia in chronic kidney disease]Onset: 51-56-0144XqtmzvaLeawtcvax of lipid metabolism (20 sources)Hyperlipidemia; Translations: [Dyslipidemia]Onset: 10-24-2021 Resolved: 985509-37-1901NxwwwivIpkuepfymo disorders (17 sources)Gastroesophageal reflux disease without esophagitis; Translations: [Gastro-esophageal reflux disease without esophagitis]Onset: 09-28-2023 68-80-2813FnkbpwuKleqcfrdm hypertension (20 sources)Hypertensive disorder; Translations: [Essential (primary) hypertension]Onset: 089294-63-0472LkltdinVhuhmuwqqattc symptoms and ill- defined conditions (20 sources)Nocturia; Translations: [Nocturia]Onset: 99-57-8612Rwsdlrjz Hyperplasia of prostate (20 sources)Benign prostatic hypertrophy with outflow obstruction; Translations: [Benign prostatic hyperplasia with lower urinary tract symptoms]Onset: 12-20-6399PlvpozxBpzmzxcsntvr with complications and secondary hypertension (20 sources)Chronic kidney disease due to hypertension; Translations: [Hypertensive chronic kidney disease withstage 1 through stage 4 chronic kidney disease, or unspecified chronic kidney disease]Onset: 10-24-2021 Resolved: 42-57-5165FbebalyGgjpnvpinvxy conditions of male genital organs (18 sources)Chronic prostatitis; Translations: [Chronic prostatitis]Onset: 671587-60-2750VfbqoceXufqrffhngrc conditions of male genital organs (13 sources)Npogrfydmvn63-34-3800LcfqxestXqvhxpsgj; nephrosis; renal sclerosis (5 sources)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; Translations: [Nephrotic syndromewith diffuse mesangiocapillary glomerulonephritis]Onset: 423786-07-9336BsdrridEisp wounds of head; neck; and trunk (5 sources)Laceration of left cornea; Translations: [Ocular laceration without prolapse or loss of intraoculartissue, left eye, initial encounter]07-14-2024 EpisodicOther acquired deformities (1 source)Lumbar spondylolisthesis; Translations: [Spondylolisthesis, lumbar region]66-82-7559KfiydfdgBjiuq acquired deformities (1 source)Spondylolisthesis, lumbar region; Translations: [Spondylolisthesis of lumbar region]Onset: 46-67-2277KyqkpglxMhrru aftercare (1 source)Encounter for surgical aftercare following surgery on the circulatory systemEpisodicOther and ill-defined heart disease (20 sources)Heart disease; Translations: [Heart disease, unspecified]Onset: 06-04-2023 Resolved: 754009-22-0755ZleiouaHygfy circulatory disease (20 sources)Disorder of carotid artery; Translations: [Disorder of arteries and arterioles, unspecified]Onset: 132508-16-0022LoysauaYbuin circulatory disease (4 sources)Disorder of arteries and arterioles, unspecified; Translations: [Disorder of arteries and arterioles, unspecified (CMS/HCC)]Onset: 06-04-2023 ChronicOther connective tissue disease (1 source)Muscle pain; Translations: [Myalgia, unspecified site]03-14-2025 EpisodicOther diseases of kidney and ureters (13 sources)Secondary hyperparathyroidism; Translations: [Secondary hyperparathyroidism of renal origin]24-39-8171HwdqmkgQiegn diseases of kidney and ureters (6 sources)Secondary hyperparathyroidism of renal origin; Translations: [Secondary hyperparathyroidism (of renal origin)]Onset: 10-24-2021 Resolved: 91-28-8955DwfacdlNvnfc diseases of kidney and ureters (1 source)Urinary tract obstruction; Translations: [Other obstructive and reflux uropathy]Onset: 38-50-2188CjaxvbydJsrvc diseases of kidney and ureters (18 sources)Kidney disease; Translations: [Disorder of kidney and ureter, unspecified]Onset: 977339-00-7310EkhvpwwuBwkxi male genital disorders (17 sources)Male erectile dysfunction, unspecified; Translations: [Erectile dysfunction]Onset: 56-56-5716UitgdwdBuogv nervous system disorders (18 sources)Chronic pain syndrome; Translations: [Chronic pain syndrome]Onset: 335988-14-1503AuldzdqBoxjp nervous system disorders (1 source)Other chronic pain; Translations: [OTHER CHRONIC PAIN]Onset: 33-61-4628YauwfyhTnrgz nutritional; endocrine; and metabolic disorders (4 sources)Overweight in adulthood with body mass index of 25 or more but less than 30; Translations: [Body mass index (BMI) 28.0-28.9, adult]Onset: 08-18-2023 63-68-1130IgtureqhVoyxdpjdaa and visceral atherosclerosis (20 sources)Peripheral vascular disease, unspecified; Translations: [Peripheral vascular disease, unspecified]Onset: 04-27-2023 Resolved: 734704-05-8838RbtycuoSogykuc on above:legsResidual codes; unclassified (1 source)Other specified postprocedural statesEpisodicResidual codes; unclassified (1 source)Family history of ischemic heart disease and other diseases of the circulatory systemEpisodicSpondylosis; intervertebral disc disorders; other back problems (11 sources)Spondylosis without myelopathy or radiculopathy, lumbar region; Translations: [Other intervertebraldisc degeneration, lumbar region]Onset: 41-26-7676YfkcuunAfhsyabhquh; intervertebral disc disorders; other back problems (20 sources)Spinal stenosis, lumbar region without neurogenic claudication; Translations: [Intervertebral disc disorders with radiculopathy, lumbar region] Onset: 44-15-6873ZugtxamrJgsjrprnl-related disorders (20 sources)Smoker; Translations: [Nicotine dependence, unspecified, uncomplicated]Onset: 640553-99-4938FqecxslWhpfwdg on above:Added secondary to documentation in Social History.Unclassified (13 sources)Finding of sensation of elwfasn12-52-9888Anmvdjimycmb (4 sources)LOW BACK PAIN, UNSPECIFIED; Translations: [LOW BACK PAIN, UNSPECIFIED]Onset: 76-37-0351Cqeikmrklgju (1 source)CONTACT W/AND (SUSP) EXPOS COVID-19; Translations: [CONTACT W/AND (SUSP) EXPOS COVID-19]Onset: 99-71-3147Skcidtutmypr (1 source)CHRN KIDNEY DISEASE STG 3 UNSP; Translations: [CHRN KIDNEY DISEASE STG 3 UNSP]Onset: 85-30-2561Jfbkxfinoffi (1 source)Foreign body sensation, unspecified; Translations: [Foreign body sensation, unspecified]Onset: 85-74-1954Xouqepx tract infections (20 sources)Urinary tract infectious disease; Translations: [Urinary tract infection, site not specified]Onset: 50-70-1078Pwyjsvwg Past or Other Problems Problem ClassificationProblemDateDocumented DateEpisodic/ChronicCancer of prostate (20 sources)History of malignant neoplasm of prostate; Translations: [Personal history of malignant neoplasm ofprostate]Onset: 66-80-8720TqmzoxoiTghflts dysrhythmias (20 sources)Bradycardia; Translations: [Bradycardia, unspecified]Onset: 555419-68-5273CguclpgvPmxfpeel mellitus without complication (15 sources)High glucose level in blood; Translations: [Hyperglycemia, unspecified]Onset: 953557-80-7036TmnbsxscJkqv disorders (15 sources)Mood disordersOnset: 767786-42-5600Nzhwjuvylnz chest pain (9 sources)Chest discomfort; Translations: [Other chest pain]Onset: 06-04-2023 77-40-7892MyaegaueDfnwq connective tissue disease (4 sources)Other muscle spasm; Translations: [OTHER MUSCLE SPASM]Onset: 20-43-0350AnydohvtSkrui connective tissue disease (15 sources)Synovial cyst of lumbar spine; Translations: [Other bursal cyst, other site]Onset: 451244-03-5150DijxbbjoIhrni nutritional; endocrine; and metabolic disorders (2 sources)Body mass index (BMI) 28.0-28.9, adult; Translations: [Body mass index (BMI) 28.0-28.9, adult]Onset: 31-29-1514AfinqlgaQlafurzy codes; unclassified (17 sources)Tobacco user; Translations: [Tobacco use]Onset: EpisodicResidual codes; unclassified (15 sources)Weight change finding; Translations: [Other general symptoms and signs]Onset: 167715-53-0316MeljolnaHnanecrewqaf (1 source)LOW BACK PAIN, UNSPECIFIED; Translations: [LOW BACK PAIN, UNSPECIFIED] Onset: 31-44-8884Erhjhbobceom (5 sources)Onset: 06-04-2023 Resolved: Results Test NameValueInterpretationReference RangeFacilityFollow-Upon 03-15-2025 Follow-[id number] Yesenia Broussard 1945 M Date Provider Department Center 03/15/2025 VASILE DOMINGUEZ ONC DCC Family History Problem Relation Age of Onset Hypertension Mother Diabetes Father Family Status - Relation Status Age at Mother Father Level of Service:44626 PA OFFICE/OUTPATIENT ESTABLISHED LOW MDM 20 [facility]Act[facility] partial thromboplastin time (aPTT) in platelet poor plasma by coagulation aOrdered By: Barbara Johnston on 03-13-2025 aPTT Coag (PPP) [Time]24.5 s22.3-36.2FMount Carmel Health SystemBasophils Auto (Bld) [#/Vol]Ordered By: Barbara Johnston on 44-05-1020Jokpgwuxg (Bld) [#/Vol]0.0 10 3/uL0.0-0.1FMount Carmel Health SystemBasophils/100 WBC Auto (Bld)Ordered By: Barbara Johnston on 26-45-3173Jxobkyyiq/100 WBC (Bld)0.3 % 0.2-2.0[facility] LimaEosinophils/100 WBC Auto (Bld)Ordered By: Barbara Johnston on 37-50-0587Xobiemlvbse/100 WBC (Bld)3.2 %0.9-7.0[facility] LimaErythrocyte distribution width Auto (RBC) [Ratio]Ordered By: Barbara Johnston on 68-29-4260Vhpjpgvtrja distribution width (RBC) [Ratio]13.5 %11.0-15.0[facility] LimaGlomerular filtration rate (GFR) estimation in non- AmericanOrdered By: Barbara Johnston on 03-13-2025 GFR/1.73 sq M.predicted among non-blacks MDRD (S/P/Bld) [Vol rate/Area]29 mL/min/{1.73_m2}Low>=60 mL/min/1.73m 2FMount Carmel Health System Hematocrit Auto (Bld) [Volume fraction]Ordered By: Barbara Johnston on 03-13-2025 Hematocrit (Bld) [Volume fraction]36.4 %Low42.0-54.0[facility] LimaHemoglobin [Mass/volume] in BloodOrdered By: Barbara Johnston on 03-13-2025 Hemoglobin (Bld) [Mass/Vol]12.0 g/dLLow14.0-18.0[facility] LimaINR in Platelet poor plasma by Coagulation assayOrdered By: Barbara Johnston on 29-08-9931PUX Coag (PPP) [Relative time]0.97 {INR}[facility] LimaComment on above:DESIRED INR:2.0-3.0 CONDITIONS NOT LISTED BELOW2.5-3.5 FOR PROSTHETIC HEART VALVE REPLACEMENT2.5-3.5 RECURRENT THROMBOSISLaboratory - Chemistry and Chemistry - challengeOrdered By: Barbara Johnston on 03-13-2025 Calcium [Mass/Vol]8.5 mg/dL8.5-10.1FMount Carmel Health SystemChloride [Moles/Vol]109 mmol/YYymf72-941GqyhhsnigScci Hospital LimaCO2 [Moles/Vol] 23.3 mmol/L21.0-32.0[facility] LimaCreatinine [Mass/Vol]2.20 mg/dLHigh0.70-1.30[facility] LimaGFR/1.73 sq M.predicted MDRD (S/P/Bld) [Vol rate/Area]35 mL/min/{1.73_m2}Low>=60 mL/min/1.73m 2FMount Carmel Health SystemGlucose [Mass/Vol]148 mg/pUBhfw38-541WmonxjugsScci Hospital LimaPotassium [Moles/Vol]4.6 mmol/L3.5-5.1FGlenbeigh Hospitalodium [Moles/Vol]142 mmol/R122-455RdiozlptfScci Hospital LimaUrea nitrogen [Mass/Vol]25.0 mg/dLHigh7.0-18.0[facility] LimaUrea nitrogen/Creatinine [Mass ratio]11.4 mg/mgScci Hospital Lima Laboratory - Hematology and Cell countsOrdered By: Barbara Johnston on 03-13-2025 Immature granulocytes/100 WBC (Bld)0.4 %0.0-0.5FMount Carmel Health System Leukocytes [#/volume] corrected for nucleated erythrocytes in Blood by Automated counOrdered By: Barbara Johnston on 95-16-5766BFB corrected for nucl RBC Auto (Bld) [#/Vol]7.4 10 3/uL4.0-11.0[facility] LimaLymphocytes Auto (Bld) [#/Vol]Ordered By: Barbara Johnston on 53-62-6262Elgleopjovh (Bld) [#/Vol]1.2 10 3/uL1.2-3.8[facility] LimaLymphocytes/100 WBC Auto (Bld)Ordered By: Barbara Johnston on 44-79-3603Yfqhinfcgqt/100 WBC (Bld)16.2 %Low20.5-60.0[facility] SystemH Auto (RBC) [Entitic mass] Ordered By: Barbara Johnston on 59-61-7069HTL (RBC) [Entitic mass]31.3 pg25.9-34.0 [facility] LimaMCHC Auto (RBC) [Mass/Vol]Ordered By: Barbara Johnston on 41-39-2066COUL (RBC) [Mass/Vol]33.0 g/dL29.9-35.2FMount Carmel Health SystemMCV Auto (RBC) [Entitic vol]Ordered By: Barbara Johnston on 35-22-3121HEW (RBC) [Entitic vol]95.0 fGYpie31.0-94.0[facility] LimaMonocytes Auto (Bld) [#/Vol]Ordered By: Barbara Johnston on 03-13-2025 Monocytes (Bld) [#/Vol]0.6 10 3/uL0.3-0.8[facility] Monocytes/100 WBC Auto (Bld)Ordered By: Barbara Johnston on 03-13-2025 Monocytes/100 WBC (Bld)8.1 %1.7-12.0[facility] LimaNeutrophils Auto (Bld) [#/Vol]Ordered By: Barbara Johnston on 38-45-7902Eyudjcoquhk (Bld) [#/Vol]5.3 10 3/uL1.4-6.5FMount Carmel Health SystemNeutrophils/100 WBC Auto (Bld)Ordered By: Barbara Johnston on 15-36-2815Kxrpbeflcqm/100 WBC (Bld)71.8 %43.0-75.0[facility] LimaNo Panel InformationOrdered By: Barbara Johnston on 86-56-5161Juxgfsinzqw # (Auto)0.2 10 3/uL0.0-0.7FMount Carmel Health SystemImmature Granulocyte # (Auto)0.03 10 3/uL0.00-0.03 [facility] LimaPlatelet mean volume Auto (Bld) [Entitic vol] Ordered By: Barbara Johnston on 57-49-6270Kwsayagh mean volume (Bld) [Entitic vol] 10.6 fL9.5-13.5FMount Carmel Health SystemPlatelets Auto (Bld) [#/Vol] Ordered By: Barbara Johnston on 54-88-5412Kqbaonwlb (Bld) [#/Vol]266 10 3/uL 150-450[facility] LimaProthrombin time (PT)Ordered By: Barbara Johnston on 48-25-5013CM Coag (PPP) [Time]10.3 s9.0-11.6FMount Carmel Health SystemRBC Auto (Bld) [#/Vol]Ordered By: Barbara Johnston on 41-04-8800UKT (Bld) [#/Vol]3.83 10 6/uLLow4.70-6.10Miami Valley Hospitalerum or plasma anion gap determinationOrdered By: Barbara Johnston on 54-78-7833Reyhr gap [Moles/Vol]14.3 mmol/LFMount Carmel Health SystemMain OR Intraoperative Recordon 31-57-9917Ftoj OR Intraoperative RecordMain OR Intraoperative Record IntraOp Document Type FTURO Summary Primary Physician: Barbara JOHNSTON MD Finalized Date/Time: 03/07/25 14:17:54 Pt. Name: YESENIA BROUSSARD/Sex: 1945 Male Med Rec #: [id number] Physician: Barbara JOHNSTON MD Financial #: [id number] Pt. Type: O Room/Bed: / Admit/Disch: 03/07/25 [...] Kendall R Role Performed Surgeon - Primary Project Safety Manager - Primary Scrub - Primary Time In [...] Prep Agents Betadine Scrub Skin. Condition Intact, Navarro, Warm, & Dry Additional None Specimens Collected [...] Document Signatures Signed By: Ethan Bundy 03/07/25 14:17[facility]Main OR Preoperative Recordon 41-41-6256Ikyq OR Preoperative RecordMain OR Preoperative Record Holding Area Document Type FTURO Summary Primary Physician: Barbara JOHNSTON MD Finalized Date/Time: 03/07/25 13:56:28 Pt. Name: YESENIA BROUSSARD/Sex: 1945 Male Med Rec #: [id number] Physician: Barbara JOHNSTON MD Financial #: [id number] Pt. Type: O Room/Bed: / Admit/Disch: 03/07/25 [...] or her perioperative plan of care The patient'sright to privacy is maintained Surgery Checklist FTURO [...] Document Signatures Signed By: Zakiya Dumas 03/07/25 13:56NoBrown Memorial HospitalOperative Reporton 76-59-7485Jpqmzlrtl ReportOperative Report Patient: YESENIA BROUSSARD Age: 79 years [...] (3), Open diverticuli diffusely. On the left lateralwall there is a 3 cm raised red [...] and transurethral resection of bladder lesions under anesthesia..Wilson HealthComment on above:Result Comment: Electronically Signed By: PRESTON MAK, Barbara Coy.br\Date and Time Signed: 03/07/25 14:22 EDTGlomerular filtration rate (GFR) estimation in non- AmericanOrdered By: Barbara Johnston on 72-38-3049KAL/1.73 sq M.predicted among non-blacks MDRD (S/P/Bld) [Vol rate/Area]30 mL/min/{1.73_m2}Low>=60 mL/min/1.73m [address] [place] [address]Laboratory - Chemistry and Chemistry - challengeOrdered By: Barbara Johnston on 70-56-0776Lpsgolbler [Mass/Vol]2.14 mg/dL High0.70-1.30[facility] LimaGFR/1.73 sq M.predicted MDRD (S/P/Bld) [Vol rate/Area]36 mL/min/{1.73_m2}Low>=60 mL/min/1.73m [address] [place], [place] [address]inderst. jose[facility] 49-20-4204NzjdjhnljGbdderzcu From: Bhavana Banks To: TRISTIN Johnston; Sent: 08/29/2024 16:30:35 EDT Show up: [...] PSA had gone up some. He had togo back in 6 months w psa. Pt had Ct scan done today at [facility] for his back. Not sure what was ordered. Report not available yet. Pt sched for 03/07/25 at [facility] for cysto Order faxed to [facility] for Ct urogram.[facility] SystemCT Lumbar spine WO contraston 15-67-1881[place]rt[place] [address] [place] Scan Report Signed Patient: YESENIA BROUSSARD MR#: [id number] : 1945 Acct:[id number] Age/Sex: 79 / M ADM Date: 02/21/25 Loc: CT Attending Dr: Loco Ferrera NP Ordering Physician: Loco Ferrera NP Date of Service: 02/21/25 Procedure(s): CT lumbar spine wo con Accession Number(s): [id number] cc: Shaikh Joanna Storm [place] [address] Patient Name: YESENIA BROUSSARD MRN: [id number] date: 1945 Sex: M Assigned Patient Location: CT Current Patient Location: CT Accession/Order Number: [id number] Exam Date: 02/21/2025 10:02 Report Date: 02/21/2025 [...] Waite M.D. 02/21/2025 11:31 AM Dictation Location: [place] [address] Electronically authenticated by: [id number] Y Date: 02/21/2025 11:31 Dictated By: Lorelei Waite M.D. Signed By: 02/21/25 1134 DD/ 1131 (more content not included)...TBHRadiology, Radiologist, - 02/21/[address] [address] [address] Scan Report Signed Patient: YESENIA BROUSSARD MR#: [id number] : 1945 Acct:[id number] Age/Sex: 79 / M ADM Date: 02/21/25 Loc: CT Attending Dr: Loco Ferrera NP Ordering Physician: Loco Ferrera NP Date of Service: 02/21/25 Procedure(s): CT lumbar spine wo con Accession Number(s): [id number] cc: Shaikh Joanna Storm [place] [address] Patient Name: YESENIA BROUSSARD MRN: [id number] date: 1945 Sex: M Assigned Patient Location: CT Current Patient Location: CT Accession/Order Number: [id number] Exam Date: 02/21/2025 10:02 Report Date: 02/21/2025 [...] Waite M.D. 02/21/2025 11:31 AM Dictation Location: [place] [address] Electronically authenticated by: [id number] Y Date: 02/21/2025 11:31 Dictated By: Lorelei Waite M.D. Signed By: 02/21/25 1134 DD/ 1131 TD/TT: Customer Resource Specialist: [facility] HealthcareRadiology Study observation (narrative)[facility] Lumbar spine WO contrastOrdered By: Radiologist Radiology on 33-83-9754JKGFSt. Louis VA Medical Center Work Phone: Erythrocyte distribution width Auto (RBC) [Ratio] Ordered By: Theo Thakkar on 28-62-8008Xsdfhucpxpe distribution width (RBC) [Ratio]13.6 %11.0-15.0[facility] Hospital LimaGlomerular filtration rate (GFR) estimation in non- AmericanOrdered By: Theo Thakkar on 99-98-0415UCV/1.73 sq M.predicted among non-blacks MDRD (S/P/Bld) [Vol rate/Area]34 mL/min/{1.73_m2}Low>=60 mL/min/1.73m [address] [place] [address] CBC WITH PLATELET NO DIFFERENTIALon 47-56-0917Nlvsulscauu distribution width (RBC) [Ratio]13.6 %11.0 - 15.0 %[facility] HealthcareHematocrit (Bld) [Volume fraction]39.3 %Low42.0 - 54.0 %[facility] HealthcareHemoglobin (Bld) [Mass/Vol]12.9 g/dLLow14.0 - 18.0 g/dLSt. Louis VA Medical CenterInterpretation and review of laboratory resultsAbnormalSelect Specialty HospitalH (RBC) [Entitic mass]30.9 pg25.9 - 34.0 pgSelect Specialty HospitalHC (RBC) [Mass/Vol]32.8 g/dL29.9 - 35.2 g/dLSelect Specialty HospitalV (RBC) [Entitic vol]94 fL80.0 - 94.0 fLSt. Louis VA Medical CenterPlatelet mean volume (Bld) [Entitic vol]10.3 fL9.5 - 13.5 fLSt. Louis Children's Hospital [id number] hospital springfield RBC4.18LowSt. Louis Children's Hospital GKZ5JGZLSt. Louis VA Medical CenterCLINISYNCNOMS HealthcareHematocrit Auto (Bld) [Volume fraction]Ordered By: Theo Thakkar on 81-55-6424Dxbomqfpvz (Bld) [Volume fraction]39.3 %Low42.0-54.0[facility]cci Hospital LimaHemoglobin [Mass/volume] in BloodOrdered By: Theo Thakkar on 33-85-3188Azuqlzgest (Bld) [Mass/Vol]12.9 g/dLLow14.0-18.0[facility] LimaIron binding capacity [Mass/volume] in Serum or PlasmaOrdered By: Theo Thakkar on 75-04-4974Laax binding capacity [Mass/Vol]354.0 ug/dL250.0-450.0 [facility] LimaIron saturation [Mass Fraction] in Serum or PlasmaOrdered By: Theo Thakkar on 90-46-2448Opfi saturation [Mass fraction]22.6 % [facility] LimaLaboratory - Chemistry and Chemistry - challengeOrdered By: Theo Thakkar on 87-52-6615Fjiffunyw Ql (U)SMALLAbnormal NEGATIVEScci Hospital LimaGlucose (U) [Mass/Vol]NegativeNEGATIVE [facility] LimaKetones Ql (U)TRACE mg/dLAbnormalNEGATIVE [facility] LimapH (U)5.5 [pH]5.0-9.0[facility]ami Valley Hospitalpecific gravity (U) [Rel density]1.0251.005-1.025[facility] LimaUrobilinogen Qn (U)0.2 {Jing'U}/dL0.2-1.0[facility] LimaAlbumin [Mass/Vol]3.8 g/dL3.4-5.0[facility] Calcium [Mass/Vol]9.2 mg/dL8.5-10.1FMount Carmel Health SystemChloride [Moles/Vol]106 mmol/N57-637OhvpefonsScci Hospital LimaCO2 [Moles/Vol]23.6 mmol/L21.0-32.0[facility] LimaCreatinine [Mass/Vol]1.93 mg/dL High0.70-1.30[facility] LimaFerritin [Mass/Vol]45.0 ng/mL 26.0-388.0[facility] LimaGFR/1.73 sq M.predicted MDRD (S/P/Bld) [Vol rate/Area]41 mL/min/{1.73_m2}Low>=60 mL/min/1.73m 2FMount Carmel Health SystemGlucose [Mass/Vol]105 mg/vI36-513SvbjovmyoScci Hospital LimaIron [Mass/Vol]80.0 ug/dL65.0-175.0[facility] LimaMagnesium [Mass/Vol]2.0 mg/dL1.8-2.4FMount Carmel Health System Potassium [Moles/Vol]5.2 mmol/LHigh3.5-5.1FMount Carmel Health System Sodium [Moles/Vol]139 mmol/D070-722XlcqtmzdxScci Hospital LimaUrate [Mass/Vol]6.6 mg/dL3.5-7.2FMount Carmel Health SystemUrea nitrogen [Mass/Vol]28.0 mg/dLHigh7.0-18.0[facility] LimaUrea nitrogen/Creatinine [Mass ratio]14.5 mg/mgScci Hospital Lima Laboratory - Specimen informationOrdered By: Theo Thakkar on 22-16-5919Hhczbpaddc (U)SL CLOUDYCLEWVUMedicine Harrison Community HospitalColor (U)LT. YELLOWYELKindred HealthcareLaboratory - UrinalysisOrdered By: Theo Thakkar on 06-53-3693Tsxynzeyu esterase Test strip Ql (U)LARGEAbnormalNEGATIVEScci Hospital LimaMucus Ql (Urine sed)NONE SEENNONE SEENScci Hospital LimaNitrite Ql (U)NegativeNEGATIVEScci Hospital Lima Protein (U) [Mass/Vol]147.8 mg/dLHigh<=11.9[facility] Protein Ql (U)100 mg/dLAbnormalNEG/TRACEScci Hospital Lima Leukocytes [#/volume] corrected for nucleated erythrocytes in Blood by Automated counOrdered By: Theo Thakkar on 46-45-6455KYJ corrected for nucl RBC Auto (Bld) [#/Vol]8.0 10 3/uL4.0-11.0[facility] Auto (RBC) [Entitic mass]Ordered By: Theo Thakkar on 56-39-9505ENB (RBC) [Entitic mass]30.9 pg25.9-34.0[facility] Health SystemHC Auto (RBC) [Mass/Vol]Ordered By: Theo Thakkar on 52-07-9383JVTS (RBC) [Mass/Vol]32.8 g/dL29.9-35.2FMount Carmel Health SystemMCV Auto (RBC) [Entitic vol]Ordered By: Theo Thakkar on 05-06-0023ACM (RBC) [Entitic vol]94.0 fL80.0-94.0[facility] Hospital LimaNo Panel InformationOrdered By: Theo Thakkar on 20-19-7064Baahz Bacteria SMALL #/HPFAbnormalNONE [facility] SouthUrine Occult Blood TRACE-INEGATIVEScci Hospital LimaUrine Other CastsNONE SEEN #/LPF NONE [facility] SouthUrine Other CrystalsNone Seen #/HPF None [facility] HospitalUrine Random Onewnrfwso697.61 mg/dL 20.00-300.00[facility] Hospital LimaUrine RBC0-2 #/HPF0-[address] [place] [address]Urine Squamous Epithelial CellsRARE #/LPFNONE/RARE [facility] LimaUrine VFT83-96 #/HPFAbnormalNONE [facility]25-Hydroxy Vitamin D Total43.3 ng/mLScci Hospital LimaComment on above:<20 ng/mL Vit D pypxlsxck13-<30 ng/mL Vit D vnmoqasaxwvi91-631 ng/mL Vit D sufficient>100 ng/mL Potential Toxicity Parathyroid Hormone (Intact)81 pg/dCRdriorfy82-51RkdicbspkScci Hospital LimaComment on above:Performed at: - Lab[address] [id number] Director: Rojelio Nelson PhD, Phone: [phone] Phosphorus Level3.9 mg/dL2.6-4.7FMount Carmel Health SystemPlatelet mean volume Auto (Bld) [Entitic vol]Ordered By: Theo Thakkar on 63-69-0537Ugqlafcb mean volume (Bld) [Entitic vol]10.3 fL9.5-13.5FMount Carmel Health System Platelets Auto (Bld) [#/Vol]Ordered By: Theo Thakkar on 07-29-8919Wifitikgb (Bld) [#/Vol]271 10 3/cA924-700HjcposhpnScci Hospital LimaRBC Auto (Bld) [#/Vol]Ordered By: Theo Thakkar on 72-34-5098PBX (Bld) [#/Vol]4.18 10 6/uLLow 4.70-6.10Miami Valley Hospitalerum or plasma anion gap determinationOrdered By: Theo Thakkar on 13-09-2269Uezhf gap [Moles/Vol]14.6 mmol/LFMount Carmel Health SystemUrine protein/creatinine ratioOrdered By: Theo Thakkar on 61-13-4630Hufdwnp/Creatinine (U) [Ratio]0.69S[facility] Hospital LimaCNOVon 44-09-9085RLZBUjqswc Visit (MINDYA) YESENIA BROUSSARD ([id number]) 1945 M Date Time Provider Department 01/18/25 [...] DIAGNOSIS: Prostate adenocarcinoma, initial PSA 9.95, biopsy [place] score 3 + 4 = 7 (grade [...] by: Hyun Nazario MD cc: Shaikh Dotty [address] [place] [address] Allergies As of Date: 01/18/2025 (No Known Allergies) Date Reviewed: 01/18/2025 Reviewed by: Kelly Hector MA - Fully Assessed Reason for Visit: Prostate Cancer [590] Cmt: Follow up Primary Visit Diagnosis:Cancer of prostate w/med recur risk (T2b-c or Nicola 7 or PSA 10-20) (HCC) [C61] Order(s):PROSTATE-SPECIFIC ANTIGEN DIAGNOSTIC [SQPSA] Order #: [id number] FUTURE Prescriptions as of 01/18/2025 - HYDROcodone-acetaminophen [...] Service: OFFICE/OUTPATIENT ESTABLISHED LOW MDM 20 MIN [20580] Additional E/M codes: VISIT CPLX INHERENT EANDM ASSOC WITH MED * (more content not included)...NormalJoint Township District Memorial Hospital PSA SERPL-MCNC on 28-41-8644VXS PSA SERPL-MCNC1.56 ng/mLNINF - 2.60 ng/mLNELKVIEW GENERAL H[facility]PITAL – HOBART HealthcareComment on above:Total PSA test methodology used is the Electrochemiluminescence Immunoassay by [employer]. Total PSA values by differing methodologies cannot be interchanged.Specimen Type: BLOOD SPECIMEN Ordering Facility: [facility] Address: [address] [place] [address] Original Ordering Provider: Hyun MontenegroA SerPl-mCncon 94-78-5255Dffjszkp specific Ag [Mass/Vol]1.56 ng/mLNormal<2.60 [facility] GeneralComment on above:Order Comment: Specimen Type: BLOOD SPECIMEN Ordering Facility: [facility] Address: [address] [place], [place] [address]Result Comment: Total PSA test methodology used is the Electrochemiluminescence Immunoassay by [employer]. Total PSA values by differing methodologies cannot be interchanged. Performed By: #### [id number] #### [facility] CLIA [id number] [address] [place], [place] [address] [address] [place] STATES OF AMERICAUrine Cytology ( Labs)on 12-70-2272Kwxlyqpiipj exam Cytology (U) [Interp]Diagnosis InfoInvalid Interpretation CodeFishMedStar Union Memorial HospitalComment on above:Result Comment: A:Urine,Urine:Voided Interpretation - Adequate cellularity for evaluation. CPT 62392 MicroScopic Description - Adequacy - Gross Description Site ID:A color Yellow fixative Alcohol Specimen designated Urine received in alcohol preservative and labeled with the patient???s name, consists of 70ml clear yellow fluid. Electronically signed by : on: 09/02/2024 13:57:41Performed By: #### [id number] #### [facility] [address] [place], [place] [address]Ambulatory Visit Summaryon 00-54-8757Rkizhemtdf Visit Summary Ambulatory Visit Summary YESENIA BROUSSARD :1945 Visit Date:08/29/2024 Ambulatory Visit Instructions Your Diagnosis Gross hematuria Your Care Team Attending Physician - CLAIRE JAMES PA-C Primary Care Physician - AMBROSIO SCALES CNP This Is Your Medications List acetaminophen-hydrocodone (Bricelyn 5/325 Tab) amlodipine (amLODIPine 10 mg Tab) [...] MAK, Barbara Warner Where: [facility] [address] [id number] You Need to Schedule the Following Appointments [facility] with [facility] Xenia When: Comments: For procedure as scheduled. Where: Medications What How Much When Instructions Unchanged acetaminophen-hydrocodone (Bricelyn 5/ 325 Tab) By Mouth Every 6 [...] these instructions at home: Medicines ??? Take znsy-rvx-jpopqlf and prescription medicines only as told by your health care provider. ??? If you were prescribed an antibiotic medicine, take it as told by your health care provider. Do notstop taking the antibiotic even if you start [...] straining your urine to (more content not included)...NormalUniversity Hospitals Beachwood Medical CenterUrine Cytology ([facility])on 88-14-1817VS Method of ExtractionVoidedWilson HealthComment on above:Performed By: #### [id number] #### [facility] [address] [place], [place] [address]SQ Number of Incb4Zdccxsr Interpretation [facility] Valley HospitalComment on above:Performed By: #### [id number] #### [facility] [address] [place], [place] [address]NQ SpecimenUrineNoBrown Memorial HospitalComment on above:Performed By: #### [id number] #### [facility] [address] [place], [place] [address]YC Type of ServiceTechnical OnlyWilson HealthComment on above:Performed By: #### [id number] #### [facility] [address] [place], [place] [address]Ivntibc Office/Clinic Noteon 17-11-8418Dxxlvrz Office/Clinic NoteUrology Office/Clinic Note Chief Complaint gross hematuria HPI [...] gross hematuria. Therefore we will need to completehematuria eval. Discussed options. The patient is aware that a distinct etiology of the hematuria may not be clear upon conclusion of the workup. Will initiate hematuria workup to include upper urinary tract imaging(CTU if renal function allows, otherwise CT w/o con), as well as evaluation of the urinary cells with urine cytology and possible a FISH test. A cystoscopy will be scheduled to rule out lower urinarytract pathology. The rationale for this workup has been discussed, and all questions have been answered. The risks and benefits for cystoscopy have been discussed. The risks include bleeding, infection, and irritation of the bladder and urinary channel, among others. The patient, after being informed ofprocedural details and after questions have been answered, wishes to proceed. Full informed consenthas been obtained. Will order Local anesthesia. *Pt willing to proceed but would like to hold off x 3 mos. I explained if cytology comes back abnl or he develops recurrent hematuria then would strongly recommend sooner. Ordered: E&M of Est. Patient Moderate 30-39 Min 82022 Urine Cytology ([facility]) Urnls Dip Stick Auto w/o Microscopy POC 57778 Follow-up With When Contact Information [facility] [place] Additional Instructions: For procedure as scheduled. Patient [...] 1 tab(s) nitroglycerin 0.4 mg sublingual Tab Bricelyn 5/325 Tab, Oral, q6hr pravastatin 40 mg [...] (08/29/24 11:52:00) Blood U (more content not included)...Wilson HealthComment on above:Result Comment: Electronically Signed By: CLAIRE JAMES PA-C\dominic\Date and Time Signed: 08/29/2513:09 EDTC Urineon 11-31-2740Avkkhlhu identified Cx Nom (U)Microbiology PROCEDURE: Urine Culture [R1] SOURCE: U CleanCatch BODY SITE: COLLECTED DATE/TIME: 08/22/2024 16:34 EDT RECEIVED DATE/TIME: 08/23/2024 17:54 EDT START DATE/TIME: 08/23/2024 17:54 EDT FREE TEXT SOURCE: Stewart SUAREZN, INK BLENDER-C, Orfabienne PARTS SPECIALIST, INK BLENDER-C, Cherie X Cherie X FINAL REPORTS Final Report [] Verified Date/Time: 08/25/2024 07:02 EDT 100 cfu/ml Mixed skin contaminants Performing Locations R1: This test was performed at: [facility], [address] [place] [address], [address] [place] [address], ZhrmksZxnzgkBrown Memorial HospitalComment on above:Performed By: #### [id number] #### [facility] [address] [place], [place] [address]Ambulatory Visit Summaryon 74-97-6435Ixusiaqnxl Visit Summary Ambulatory Visit Summary YESENIA BROUSSARD Timmy :1945 Visit Date:08/22/2024 Ambulatory Visit Instructions Your Care Team Attending Physician - PRESTON MAK, Barbara Warner Primary Care Physician - AMBROSIO SCALES CNP This Is Your Medications List acetaminophen-hydrocodone (Bricelyn 5/325 Tab) amlodipine (amLODIPine 10 mg Tab) [...] MAK, Barbara Warner Where: [facility] [address] [facility] [place] [address]- Medications What How Much When Instructions Unchanged acetaminophen-hydrocodone (Bricelyn 5/ 325 Tab) By Mouth Every 6 [...] you for choosing us for your care. Wilson HealthFollow-Upon 31-22-3658Aeisvg-Up [id number] Yesenia Broussard 1945 M Date Provider Department Center 08/18/2024 [facility] SURG Second Fl Family History Problem Relation Age of Onset Hypertension Mother Diabetes Father Family Status - Relation Status Age at Mother Father Level of Service:17909 PA OFFICE/OUTPATIENT ESTABLISHED LOW MDM 20 MIN Reason for Visit and Comments: Follow-up [920212][facility] Urineon 08-12-2024 Bacteria identified Cx Nom (U)Microbiology PROCEDURE: Urine Culture [R1] SOURCE: U Random BODY SITE: COLLECTED DATE/TIME: 08/08/2024 13:00 EDT RECEIVED DATE/TIME: 08/08/2024 17:47 EDT START DATE/TIME: 08/08/2024 17:47 EDT FREE TEXT SOURCE: CLAIRE JAMES PA-C, PA-C, CLAIRE Boswell FINAL REPORTS Final Report [] Verified Date/Time: 08/12/2024 11:28 EDT 10,000 cfu/ml Staphylococcus aureus SUSCEPTIBILITY RESULTS LEGEND: S=Susceptible, N/R=Not Reported, Blank=Data not available, [...] This test was performed at: [facility], [address] [place] [address], [address] , [place], MyqfycZzogjuBrown Memorial HospitalComment on above:Performed By: #### [id number] #### [facility] [address] [place] [address]Nckmxon [Mass/volume] in Serum or Plasma by Bromocresol green (BCG) dye binding methoOrdered By: Theo Thakkar on 35-03-1347Onzfcat BCG dye [Mass/Vol]Albumin [Mass/volume] in Serum or Plasma by Bromocresol green (BCG) dye binding metho3.5-5.7FMount Carmel Health SystemAppearance of Urine Ordered By: Theo Thakkar on 27-47-9951Uivyzlzucu (U)Urine appearanceClear [facility] Hospital LimaBacteria [Presence] in Urine by Automated Ordered By: Theo Thakkar on 60-80-9474Ngkqdszt Auto Ql (U)Bacteria [Presence] in Urine by AutomatedNone SeenScci Hospital LimaBilirubin Test strip Ql (U)Ordered By: Theo Thakkar on 03-03-9708Aarlpgxqh Ql (U)Bilirubin.total [Presence] in Urine by Test stripNegativeScci Hospital Lima Calcium [Mass/volume] in Serum or PlasmaOrdered By: Theo Thakkar on 08-10-2024 Calcium [Mass/Vol]Calcium [Mass/volume] in Serum or Plasma8.6-10.3FMount Carmel Health SystemCarbon dioxide, total [Moles/volume] in Serum or Plasma Ordered By: Theo Thakkar on 59-41-7154YJ0 [Moles/Vol]Carbon dioxide, total [Moles/volume] in Serum or Yjdtev11.0-31.0[facility] Chloride [Moles/volume] in Serum or PlasmaOrdered By: Theo Thakkar on 08-10-2024 Chloride [Moles/Vol]Chloride [Moles/volume] in Serum or Juzapr67-606CufmpewjqScci Hospital LimaColor Auto (U)Ordered By: Theo Vivian on 45-13-9617Vzglh (U)Color of Urine by AutoYellowScci Hospital LimaCreatinine [Mass/volume] in Serum or PlasmaOrdered By: Theo Vivian on 35-91-7831Fnxuawoart [Mass/Vol]Creatinine [Mass/volume] in Serum or PlasmaHigh0.70-1.30[facility] Hospital LimaCreatinine [Mass/volume] in UrineOrdered By: Theo Vivian on 49-45-9085Rexmkwisrq (U) [Mass/Vol]Creatinine [Mass/volume] in UrineScci Hospital LimaComment on above:No reference range establishedDipstick and Microscopicon 86-41-4443Ohwleaugie (U)ClearNormalClearThe [facility] Hospital Physician GroupComment on above:Order Comment: Name Collection Type:: Clean- Voided MidstreamPerformed By: #### ADDONUAPLUS, PROCRERAT, CUU #### [facility] [address] [place] [address] USABacteria,UrineNone SeenNormalNone SeenThe [facility] Hospital Physician GroupComment on above:Order Comment: Name Collection Type:: Clean- Voided MidstreamPerformed By: #### ADDONUAPLUS, PROCRERAT, CUU #### [facility] [address] [place] [address] USABilirubin,UrineNegativeNormalNegativeThe [facility] Hospital Physician GroupComment on above:Order Comment: Name Collection Type:: Clean- Voided MidstreamPerformed By: #### ADDONUAPLUS, PROCRERAT, CUU #### [facility] [address] [id number] USAColor (U)Light-YellowNormalYellowThe [facility] Hospital Physician GroupComment on above:Order Comment: Name Collection Type:: Clean-Voided MidstreamPerformed By: #### ADDONUAPLUS, PROCRERAT, CUU #### [place] [address] USAGlucose Ql (U)NormalNormalNormalThe [facility] Hospital Physician GroupComment on above:Order Comment: Name Collection Type:: Clean-Voided MidstreamPerformed By: #### ADDONUAPLUS, PROCRERAT, CUU #### [place] [address] USAHyaline Casts,Tkwyv8-9Upvviz1-0Jfd [facility] Physician GroupComment on above:Order Comment: Name Collection Type:: Clean-Voided MidstreamPerformed By: #### ADDONUAPLUS, PROCRERAT, CUU #### [place] [address] USAKetones Ql (U)NegativeNormalNegativeHca [facility] Hospital Physician GroupComment on above:Order Comment: Name Collection Type:: Clean- Voided MidstreamPerformed By: #### ADDONUAPLUS, PROCRERAT, CUU #### [place] [address] USALeukocyte esterase Test strip Ql (U)2+HighNegativeThe [facility] Hospital Physician GroupComment on above:Order Comment: Name Collection Type:: Clean-Voided MidstreamPerformed By: #### ADDONUAPLUS, PROCRERAT, CUU #### [place] [address] USAMucus,UrineRareNormalThe [facility] Hospital Physician GroupComment on above:Order Comment: Name Collection Type:: Clean-Voided MidstreamResult Comment: PERFORMED BY: [place] [address] PATHOLOGIST WILD ANIMAL CARETAKER ROS GUNDERSON M.D.Performed By: #### ADDONUAPLUS, PROCRERAT, CUU #### [place] [address] USANitrite,UrineNegativeNormalNegativeThe [facility] Physician GroupComment on above:Order Comment: Name Collection Type:: Clean-Voided MidstreamPerformed By: #### ADDONUAPLUS, PROCRERAT, CUU #### [place] [address] USAOccult Blood,Urine1+HighNegativeThe [facility] Physician GroupComment on above:Order Comment: Name Collection Type:: Clean-Voided MidstreamPerformed By: #### ADDONUAPLUS, PROCRERAT, CUU #### [place] [address] USApH (U)6.0 [pH]Normal5.0-9.0The [facility] Comment on above:Order Comment: Name Collection Type:: Clean-Voided Midstream Performed By: #### ADDONUAPLUS, PROCRERAT, CUU #### [place] [address] USAProtein (U) [Mass/Vol]50 mg/dLHighNegativeThe [facility] Hospital Physician GroupComment on above:Order Comment: Name Collection Type:: Clean- Voided MidstreamPerformed By: #### ADDONUAPLUS, PROCRERAT, CUU #### [place] [address] USARBC,Sivkc4-1Srfj4-6Arz [facility] Physician GroupComment on above:Order Comment: Name Collection Type:: Clean-Voided MidstreamPerformed By: #### ADDONUAPLUS, PROCRERAT, CUU #### [place] [address] USASpecificy Success,Urine1.374Rmvzsq4.001-1.030The [facility] Hospital Physician GroupComment on above:Order Comment: Name Collection Type:: Clean- Voided MidstreamPerformed By: #### ADDONUAPLUS, PROCRERAT, CUU #### [place] [address] USAUrobilinogen,UrineNormalNormalNormalThe [facility] Physician GroupComment on above:Order Comment: Name Collection Type:: Clean- Voided MidstreamPerformed By: #### ADDONUAPLUS, PROCRERAT, CUU #### [place] [address] USAWBC CLUMP, UrineOccasionalHighNone SeenThe [facility] Physician GroupComment on above:Order Comment: Name Collection Type:: Clean- Voided MidstreamPerformed By: #### ADDONUAPLUS, PROCRERAT, CUU #### [facility] [address] [place] [address] USAWBC,Xdiwu40-78Xysx3-7Kbg [facility] Physician GroupComment on above:Order Comment: Name Collection Type:: Clean-Voided MidstreamPerformed By: #### ADDONUAPLUS, PROCRERAT, CUU #### [facility] [address] [place] [address] USAEpithelial cells.squamous [#/area] in Urine sediment by Automated countOrdered By: Theo Thakkar on 75-48-9545Kmlksvynrd cells.squamous Auto (Urine sed) [#/Area]Epithelial cells.squamous [#/area] in Urine sediment by Automated countScci Hospital LimaErythrocyte distribution width Auto (RBC) [Ratio]Ordered By: Theo Thakkar on 13-07-1653Ashhroteqfy distribution width (RBC) [Ratio]Erythrocyte distribution width [Ratio] by Automated countHigh 12.0-14.8Scci Hospital LimaErythrocytes [#/area] in Urine sediment by Automated countOrdered By: Theo Thakkar on 11-91-1510SRN Auto (Urine sed) [#/Area]Erythrocytes [#/area] in Urine sediment by Automated countHigh0-4 [facility] Hospital LimaFerritinon 53-95-7747Mwwqtgix [Mass/Vol]14.0 ng/mLLow23.9-336.2The [facility] Hospital Physician GroupComment on above:Performed By: #### MG, AQRM58VR, URIC, CBCNO, JAVIER, FE and TIBC, PTH, RENAL #### [facility] [address] [place] [address] USAFerritin [Mass/volume] in Serum or PlasmaOrdered By: Theo Thakkar on 89-52-7567Jkxluqal [Mass/Vol]Ferritin [Mass/volume] in Serum or Plasma Low23.9-336.2FMount Carmel Health SystemGlucose [Mass/volume] in Serum or PlasmaOrdered By: Theo Thakkar on 55-81-3886Grjlzti [Mass/Vol]Glucose [Mass/volume] in Serum or WbwkzsKyxj14-712EmxevrzsiScci Hospital Lima Comment on above:ADA recommended reference rangeRandom Glucose Reference Range is dependent on time and content of last meal. Glucose of more than 200 mg/dL in a nonstressed, ambulatory subject supports the diagnosisof Diabetes Mellitus. Glucose [Mass/volume] in Urine by Test stripOrdered By: Theo Thakkar on 97-23-2225Imtjhcz Test strip (U) [Mass/Vol]Glucose [Mass/volume] in Urine by Test stripNormalScci Hospital LimaHematocrit Auto (Bld) [Volume fraction]Ordered By: Theo Thakkar on 49-25-4963Czuwrodzmz (Bld) [Volume fraction] Hematocrit [Volume Fraction] of Blood by Automated count38.8-50.0S[facility] Hospital LimaHemoglobin Test strip Ql (U)Ordered By: Theo Thakkar on 91-90-3537Zxqimyxngb Ql (U)Hemoglobin [Presence] in Urine by Test stripHigh NegativeScci Hospital LimaHemoglobin [Mass/volume] in Blood Ordered By: Theo Thakkar on 21-79-3890Edttamwljs (Bld) [Mass/Vol]Hemoglobin [Mass/volume] in Blood13.0-17.0S[facility] Hospital LimaHemogram CBC Without Diffon 93-20-5363Uhuglsdqxhn distribution width (RBC) [Ratio]15.8 %High 12.0-14.8The [facility] Hospital Physician GroupComment on above:Performed By: #### MG, MTQR46YL, URIC, CBCNO, JAVIER, FE and TIBC, PTH, RENAL #### [facility] [address] [id number] USAHematocrit (Bld) [Volume fraction]39.2 %Ckmzwk57.8-50.0The [facility] Hospital Physician GroupComment on above:Performed By: #### MG, FASE77LY, URIC, CBCNO, JAVIER, FE and TIBC, PTH, RENAL #### [facility] [address] [id number] USAHemoglobin (Bld) [Mass/Vol]13.0 g/bWFzgjfw41.0-17.0The [facility] Hospital Physician GroupComment on above:Performed By: #### MG, SDOH44SG, URIC, CBCNO, JAVIER, FE and TIBC, PTH, RENAL #### [facility] [address]H (RBC) [Entitic mass]29.9 inKirjot74.5-35.2The [facility] Hospital Physician GroupComment on above:Performed By: #### MG, JKGV10GS, URIC, CBCNO, JAVIER, FE and TIBC, PTH, RENAL #### [address] (RBC) [Entitic vol]90.3 iABrethi86.5-101The [facility] Hospital Physician GroupComment on above:Performed By: #### MG, FIRA18MS, URIC, CBCNO, JAVIER, FE and TIBC, PTH, RENAL #### [place] [address] USAMean Corpuscular HGB Conc33.1 g/nQZgkdbm80.5-35.6The [facility] Physician GroupComment on above:Performed By: #### MG, [id number], URIC, CBCNO, JAVIER, FE and TIBC, PTH, RENAL #### [place] [address] USAPlatelet mean volume (Bld) [Entitic vol]8.9 fLNormal 6.6-10.1The [facility] Physician GroupComment on above:Result Comment: PERFORMED BY: [place] [address] PATHOLOGIST WILD ANIMAL CARETAKER ROS GUNDERSON M.D.Performed By: #### MG, [id number], URIC, CBCNO, JAVIER, FE and TIBC, PTH, RENAL #### [place] [address] USAPlatelets (Bld) [#/Vol]293 10*3/nJEsehtc805-786Dzg [facility] Physician GroupComment on above:Performed By: #### MG, [id number], URIC, CBCNO, JAVIER, FE and TIBC, PTH, RENAL #### [facility] [address] [place] [address] USARBC (Bld) [#/Vol]4.34 10*6/uLNormal3.90-5.60The [facility] Physician GroupComment on above:Performed By: #### MG, [id number], URIC, CBCNO, JAVIER, FE and TIBC, PTH, RENAL #### [facility] [address] [place] [address] USAWBC (Bld) [#/Vol]6.9 10*3/uLNormal4.1-10.5The [facility] Physician GroupComment on above:Performed By: #### MG, [id number], URIC, CBCNO, JAVIER, FE and TIBC, PTH, RENAL #### [facility] [address] [place] [address] USAHyaline casts [#/area] in Urine sediment by Automated countOrdered By: Theo Thakkar on 69-71-0537Ykowzed casts Auto (Urine sed) [#/Area]Hyaline casts [#/area] in Urine sediment by Automated count0-8Scci Hospital LimaIron [Mass/volume] in Serum or PlasmaOrdered By: Theo Thakkar on 31-80-8453Vhuc [Mass/Vol]Iron [Mass/volume] in Serum or Xmecci41-590 [facility] Hospital LimaIron and TIBC Profileon 08-10-2024% Iron Qqnxlraidx10.9 %Dkn71-23Gke [facility] Physician GroupComment on above:Performed By: #### MG, [id number], URIC, CBCNO, JAVIER, FE and TIBC, PTH, RENAL #### [facility] [address] [place] [address] USAIron [Mass/Vol]87 ug/aLGhofxg28-499Wqr [facility] Physician GroupComment on above:Performed By: #### MG, [id number], URIC, CBCNO, JAVIER, FE and TIBC, PTH, RENAL #### [facility] [address] [place] [id number] USATotal Iron Binding Tkohhmky036 ug/dDOktezy309-808Ikr [facility] Physician GroupComment on above:Performed By: #### MG, [id number], URIC, CBCNO, JAVIER, FE and TIBC, PTH, RENAL #### [facility] [address] [place] [id number] USATransferrin [Mass/Vol]313 mg/gOVclema029-202Lfc [facility] Physician GroupComment on above:Performed By: #### MG, [id number], URIC, CBCNO, JAVIER, FE and TIBC, PTH, RENAL #### [facility] [address] [place] [address] USAKetones Test strip Ql (U)Ordered By: Theo Thakkar on 29-04-9765Ktsgold Ql (U)Ketones [Presence] in Urine by Test stripTogus Va Medical CenterLeukocyte clumps [Presence] in Urine by AutomatedOrdered By: Theo Thakkar on 54-52-7452Wjlnnicih clumps Auto Ql (U) Leukocyte clumps [Presence] in Urine by AutomatedAshtabula County Medical CenterLeukocyte esterase [Presence] in Urine by Test stripOrdered By: Theo Thakkar on 84-08-5334Wdtiuxsrf esterase Test strip Ql (U)Leukocyte esterase [Presence] in Urine by Test stripACMC Healthcare System Leukocytes [#/area] in Urine sediment by Automated countOrdered By: Theo Thakkar on 36-29-5774VPW Auto (Urine sed) [#/Area]Leukocytes [#/area] in Urine sediment by Automated countWest Virginia University Health System04FMount Carmel Health SystemLeukocytes [#/volume] corrected for nucleated erythrocytes in Blood by Automated counOrdered By: Theo Thakkar on 44-73-8335PYD corrected for nucl RBC Auto (Bld) [#/Vol]Leukocytes [#/volume] corrected for nucleated erythrocytes in Blood by Automated coun 4.1-10.5FSamaritan HospitalH Auto (RBC) [Entitic mass]Ordered By: Theo Thakkar on 85-88-4923IQK (RBC) [Entitic mass]MCH [Entitic mass] by Automated count27.5-35.2FMount Carmel Health SystemMCHC Auto (RBC) [Mass/Vol]Ordered By: Theo Thakkar on 45-48-8796MGOB (RBC) [Mass/Vol]MCHC [Mass/volume] by Automated count32.5-35.6FMount Carmel Health SystemMCV Auto (RBC) [Entitic vol]Ordered By: Theo Thakkar on 82-71-6174HYX (RBC) [Entitic vol]MCV [Entitic volume] by Automated count83.5-101Scci Hospital LimaMagnesiumon 82-15-5488Babqgsdvf [Mass/Vol]2.1 mg/dLNormal1.9-2.7The [facility] Physician GroupComment on above:Performed By: #### MG, [id number], URIC, CBCNO, JAVIER, FE and TIBC, PTH, RENAL #### [facility] [address] [place] [address] USAMagnesium [Mass/volume] in Serum or PlasmaOrdered By: Theo Thakkar on 92-15-0819Xxtlnbmmk [Mass/Vol]Magnesium [Mass/volume] in Serum or Plasma1.9-2.7FMount Carmel Health SystemMucus [Presence] in Urine by AutomatedOrdered By: Theo Thakkar on 23-17-8657Culcl Auto Ql (U)Mucus [Presence] in Urine by AutomatedScci Hospital LimaNitrite Test strip Ql (U) Ordered By: Theo Thakkar on 31-92-3797Hfpuquy Ql (U)Nitrite [Presence] in Urine by Test stripNegativeScci Hospital LimaNo Panel Information Ordered By: Theo Thakkar on 64-02-9021Wmoyayizv GFR (CKD-EPI)39.659 mL/Min [facility] Hospital LimaPharmacy Creatinine Clearance (ChemN/AFMount Carmel Health SystemParathyrin.intact [Mass/volume] in Serum or Plasma Ordered By: Theo Thakkar on 38-46-9614Opijxrpxql.intact [Mass/Vol] Parathyrin.intact [Mass/volume] in Serum or XuezkzXfkg89-67SwpgurfhiScci Hospital LimaParathyroid Hormone Intacton 09-20-1845Frtkthenofv Hormone Intact 96.1 pg/nOFmcv86-70Nht [place] Physician GroupComment on above:Result Comment: PERFORMED BY: [place] [address] PATHOLOGIST WILD ANIMAL CARETAKER ROS GUNDERSON M.D.Performed By: #### MG, [id number], URIC, CBCNO, JAVIER, FE and TIBC, PTH, RENAL #### [facility] [address] [place] [address] USAPhosphate [Mass/volume] in Serum or PlasmaOrdered By: Theo Vivian on 26-53-3634Biasmglwe [Mass/Vol]Phosphate [Mass/volume] in Serum or Plasma2.5-4.5FMount Carmel Health SystemPlatelet mean volume Auto (Bld) [Entitic vol]Ordered By: Theo Vivian on 96-31-6063Kvnughtu mean volume (Bld) [Entitic vol]Platelet mean volume [Entitic volume] in Blood by Automated count 6.6-10.1FMount Carmel Health SystemPlatelets Auto (Bld) [#/Vol]Ordered By: Theo Vivian on 44-41-6464Qboltfigj (Bld) [#/Vol]Platelets [#/volume] in Blood by Automated jebrg965-812WoplrfepgScci Hospital LimaPotassium [Moles/volume] in Serum or PlasmaOrdered By: Theo Vivian on 37-04-1950Piefciret [Moles/Vol]Potassium [Moles/volume] in Serum or Plasma3.5-5.1FMount Carmel Health SystemProtein Creat Ratio Ur Randomon 81-42-3615Aucgrtmxdp, Urine (Random)114.00 mg/dLNormalThe [facility] Physician GroupComment on above:Result Comment: No reference range establishedPerformed By: #### EM CHO, CUU #### [facility] [address] [place], [place] [address] USAProtein (U) [Mass/Vol]81 mg/dLHigh0-9[facility] Physician [facility] HospitalComment on above:Performed By: #### BELEM CHOREOWEN, CUU #### [place] [address] USAUrine Protein/Creatinine Qcqwd860 mg/g{Cre}High0-200The [facility] Physician GroupComment on above:Result Comment: PERFORMED BY: [place] [address] PATHOLOGIST WILD ANIMAL CARETAKER ROS GUNDERSON M.D.Performed By: #### EM CHO CUU #### [place] [address] USAProtein Test strip (U) [Mass/Vol]Ordered By: Theo Herrmanndir on 02-72-3370Ylnmerg (U) [Mass/Vol]Protein [Mass/volume] in Urine by Test strip HighNegativeScci Hospital LimaProtein [Mass/volume] in Urine Ordered By: Theo Vivian on 50-21-9394Tubotai (U) [Mass/Vol]Protein [Mass/volume] in UrineHigh0-9Scci Hospital LimaRBC Auto (Bld) [#/Vol]Ordered By: Theo Vivian on 87-40-9527NUZ (Bld) [#/Vol]Erythrocytes [#/volume] in Blood by Automated count3.90-5.60Scci Hospital LimaRenal Function Panel on 77-27-8614Nzfjndi [Mass/Vol]4.3 g/dLNormal3.5-5.7The [facility] Physician GroupComment on above:Performed By: #### MG, [id number], URIC, CBCNO, JAVIER, FE and TIBC, PTH, RENAL #### [place] [address] USAAnion gap [Moles/Vol]9.2 mmol/LNormal6.0-15.0The [facility] Physician GroupComment on above:Performed By: #### MG, [id number], URIC, CBCNO, JAVIER, FE and TIBC, PTH, RENAL #### [place] [address] USACalcium [Mass/Vol]9.2 mg/dLNormal8.6-10.3The [facility] Physician GroupComment on above:Performed By: #### MG, [id number], URIC, CBCNO, JAVIER, FE and TIBC, PTH, RENAL #### [facility] [address] [place] [address] USAChloride [Moles/Vol]106 mmol/ZCdcfzl13-437Ukk [facility] Physician GroupComment on above:Performed By: #### MG, [id number], URIC, CBCNO, JAVIER, FE and TIBC, PTH, RENAL #### [place] [address] USACO2 [Moles/Vol]27.7 mmol/OQrxtws49.0-31.0The [facility] Physician GroupComment on above:Performed By: #### MG, [id number], URIC, CBCNO, JAVIER, FE and TIBC, PTH, RENAL #### [place] [address] USACreatinine [Mass/Vol]1.73 mg/dLHigh0.70-1.30The [facility] Physician GroupComment on above:Performed By: #### MG, [id number], URIC, CBCNO, JAVIER, FE and TIBC, PTH, RENAL #### [place] [address] USAEstimated GFR39.659 mL/MinNormalThe [facility] Physician GroupComment on above:Performed By: #### MG, [id number], URIC, CBCNO, JAVIER, FE and TIBC, PTH, RENAL #### [place] [address] USAGlucose [Mass/Vol]119 mg/tHBjzc81-979Krs [facility] Physician GroupComment on above:Result Comment: Random Glucose Reference Range is dependent on time and content of last meal. Glucose of more than 200 mg/dL in a nonstressed, ambulatory subject supports the diagnosis of Diabetes Mellitus. ADA recommended reference rangePerformed By: #### MG, [id number], URIC, CBCNO, JAVIER, FE and TIBC, PTH, RENAL #### [place] [address] USAPhosphate [Mass/Vol]3.4 mg/dLNormal2.5-4.5The [facility] Physician GroupComment on above:Performed By: #### MG, [id number], URIC, CBCNO, JAVIER, FE and TIBC, PTH, RENAL #### [facility] [address] [place] [address] USAPotassium [Moles/Vol]4.9 mmol/LNormal3.5-5.1The [facility] Physician GroupComment on above:Performed By: #### MG, [id number], URIC, CBCNO, JAVIER, FE and TIBC, PTH, RENAL #### [facility] [address] [place] [address] USASodium [Moles/Vol]138 mmol/AEspbyy034-275Bta [facility] Physician GroupComment on above:Performed By: #### MG, [id number], URIC, CBCNO, JAVIER, FE and TIBC, PTH, RENAL #### [facility] [address] [place] [address] USAUrea nitrogen [Mass/Vol]24 mg/dLNormal7-25The [facility] Physician GroupComment on above:Performed By: #### MG, [id number], URIC, CBCNO, JAVIER, FE and TIBC, PTH, RENAL #### [facility] [address] [place] [address] USASerum or plasma anion gap determinationOrdered By: Theo Thakkar on 50-24-2431Pthuo gap [Moles/Vol]Serum or plasma anion gap determination 6.0-15.0Miami Valley Hospitalerum or plasma iron binding capacity measurement (mass/volume)Ordered By: Theo Thakkar on 95-48-5181Cxxw binding capacity [Mass/Vol]Iron binding capacity [Mass/volume] in Serum or Udfmqd961-250 [facility] Valley Hospitalerum or plasma iron saturation measurement (mass fraction)Ordered By: Theo Thakkar on 29-25-4092Hfpg saturation [Mass fraction]Iron saturation [Mass Fraction] in Serum or YoerqxXww96-44VicusjdayMiami Valley Hospitalodium [Moles/volume] in Serum or PlasmaOrdered By: Theo Thakkar on 52-01-5017Aothsw [Moles/Vol]Sodium [Moles/volume] in Serum or Plasma 136-145Miami Valley Hospitalpecific gravity Test strip (U) [Rel density]Ordered By: Theo Thakkar on 70-97-5677Ygnwbrgg gravity (U) [Rel density] Specific gravity of Urine by Test strip1.001-1.030Scci Hospital LimaTransferrin [Mass/volume] in Serum or PlasmaOrdered By: Theo Herrmanndir on 80-65-7630Kzbaqeguyke [Mass/Vol]Transferrin [Mass/volume] in Serum or Plasma 203-362Scci Hospital LimaUrate [Mass/volume] in Serum or Plasma Ordered By: Theo Herrmanndir on 94-40-6858Dzdeu [Mass/Vol]Urate [Mass/volume] in Serum or Plasma4.4-7.6FMount Carmel Health SystemUrea nitrogen [Mass/volume] in Serum or PlasmaOrdered By: Theo Thkakar on 73-75-8165Qaew nitrogen [Mass/Vol]Urea nitrogen [Mass/volume] in Serum or Plasma7-25Scci Hospital LimaUric Acidon 47-18-8991Fvscf [Mass/Vol]6.2 mg/dLNormal 4.4-7.6The [facility] Physician GroupComment on above:Performed By: #### MG, [id number], URIC, CBCNO, JAVIER, FE and TIBC, PTH, RENAL #### [facility] [address] [place] [address] USAUrine Cultureon 04-45-5187Hhxzuayb identified Cx Nom (U)No Growth 2 Days PERFORMED BY: [place] [address] PATHOLOGIST WILD ANIMAL CARETAKER ROS GUNDERSON M.D.NormalThe [facility] Physician GroupComment on above: Performed By: #### MG, [id number], URIC, CBCNO, JAVIER, FE and TIBC, PTH, RENAL #### [facility] [address] [place] [address] USAUrine cultureOrdered By: Theo Thakkar on 42-23-8997Rlapqjsr identified Cx Nom (U)Urine cultureScci Hospital LimaUrine protein/creatinine ratioOrdered By: Theo Thakkar on 01-66-4617Xlihddt/Creatinine (U) [Ratio]Urine protein/creatinine ratioHigh0-200Scci Hospital LimaUrobilinogen Test strip (U) [Mass/Vol]Ordered By: Theo Thakkar on 14-99-3761Scxltruadkmg (U) [Mass/Vol]Urobilinogen [Mass/volume] in Urine by Test stripNormalScci Hospital LimaVitamin D 25 Hydroxy Totalon 97-86-4958Pduycrx D 25 Hydroxy Total51.2 ng/mKEjooua58-875Fsk [facility] Physician GroupComment on above:Result Comment: VITAMIN D STATUS 25(OH)VITAMIN D RANGE (ng/mL) Deficient <20 Insufficient 20 to <30 Sufficient 30 to 100 Reference: Wayen Patterson, John VILLEGAS, et al. Evaluation,treatment, and prevention of vitamin D deficiency; an Endocrine Society clinical practice guideline. JCEM. 2010; 96(7):1911-30. PERFORMED BY: [place] [address] PATHOLOGIST WILD ANIMAL CARETAKER ROS GUNDERSON M.D.Performed By: #### MG, [id number], URIC, CBCNO, JAVIER, FE and TIBC, PTH, RENAL #### [place] [address] USAVitamin D+Metabolites [Mass/volume] in Serum or Plasma Ordered By: Theo Thakkar on 58-33-4361Ygmkaih D+Metabolites [Mass/Vol]Vitamin D+Metabolites [Mass/volume] in Serum or Caketu71-783GujajmhjwScci Hospital LimaComment on above:VITAMIN D STATUS 25(OH)VITAMIN D RANGE (ng/mL) Deficient <20 Insufficient 20 to <56Ycfhowrvgc97 to 100Reference: Wayne Patterson, John VILLEGAS, et al. Evaluation,treatment, and prevention of vitamin D deficiency; an Endocrine Society clinical practice guideline. JCEM. 2010; 96 (7):1911-30.pH Test strip (U)Ordered By: Theo Thakkar on 92-76-2925hT (U)pH of Urine by Test strip5.0-9.0S[facility] Hospital LimaUrology Office/Clinic Noteon 23-30-9573Clsldpn Office/Clinic NoteUrology Office/Clinic Note Chief Complaint gross hematuria HPI Staff 79 year old male patient here for gross hematuria. He says about 2 weeks ago, he saw small amounts of blood on and off, but it was not constantly. He says he has been having a light burning sensationx2 weeks. Denies abdominal pain, does say he [...] call office during day and I can tryto irrigate him. Otherwise if overnight, ER. If Cx neg, will need hematuria eval. Ordered: cephalexin, 500 mg = 1 cap(s), Oral, q12hr, X 7 day(s), # 14 cap(s), Refills(s) 0, Pharmacy: [facility]/pharmacy #[id number], 178, cm, 08/08/24 12:38:00 EDT, Height/Length Dosing, 90.4, kg, 08/08/24 12:38:00 EDT,Weight Dosing 76707 Measure Post Void residual urine and/or bladder capacity by US- non-imaging Body Mass Index (BMI) documented 3008F Current tobacco smoker 1034F Depression Screening Negative 3352F E&M of Est. Patient Moderate 30-39 Min 09592 Influenza immunization status assessed 1030F Medication list [...] Urnls Dip Stick Auto w/o Microscopy POC 54424 Orders: tadalafil, 20 mg = 1 tab(s), Oral, As Directed, Do not exceed 20mg within 48 hours., # 30 tab(s), Refills(s) 1, Pharmacy: [id number], 178, cm, 07/07/23 9:25:00 EST, Height/Length Dosing, 92, kg, 07/07/23 9:25:00 EST, Weight Dosing Follow-up With When Contact Information [facility] Additional Instructions: Only if needed/new problems [...] Oral, q12hr nitroglycerin 0.4 mg sublingual Tab Bricelyn 5/325 Tab, Oral, q6hr pravastatin 40 mg [...] Cigarettes, Yes, 08/08/2024 F (more content not included)...Wilson HealthComment on above:Result Comment: Electronically Signed By: CLAIRE JAMES PA-C\.daniel\Date and Time Signed: 08/08/2512:51 EDTAmbulatory Visit Summaryon 04-18-2024 Ambulatory Visit SummaryAmbulatory Visit Summary YESENIA BROUSSARD :1945 Visit Date:04/18/2024 Ambulatory Visit Instructions Your Diagnosis History of prostate cancer Recurrent UTI BPH with urinary obstruction Nocturia Erectile dysfunction Your Care Team Attending Physician - PRESTON MAK, Barbara Warner Primary Care Physician - MS. NASIR WARD This Is Your Medications List tadalafil (Cialis 20 mg Tab) Contact prescribing physician if questions or concerns acetaminophen-hydrocodone (Bricelyn 5/325 Tab) amlodipine (amLODIPine 10 mg Tab) [...] Barbara JOHNSTON MD Where: [facility] [address] [place] [address]- You Need to Schedule the Following Appointments Follow Up with Barbara JOHNSTON MD, URL When: Comments: 1 yr w/ PSA Where: [facility] [address], [place] [address] [phone] Medications What How Much When Instructions Unchanged tadalafil (Cialis 20 mg Tab) 1 Tablets By Mouth As Directed Do not exceed 20mg within 48 hours. Unchanged acetaminophen-hydrocodone (Bricelyn 5/ 325 Tab) By Mouth Every 6 hours Contact prescribing physician if questions or concerns Unchanged amlodipine (amLODIPine 10 mg Tab) 1 Tablets Contact prescribing physician if questions orconcerns Unchanged aspirin (aspirin 81 mg oral capsule) By Mouth Every 4 hours Contact prescribing physicianif questions or concerns Unchanged clopidogrel (clopidogrel 75 [...] medicines. ??? You villegas (more content not included)...[facility] HealthUrology Office/Clinic Noteon 52-82-6015Mdvqvyn Office/Clinic NoteUrology Office/Clinic Note Chief Complaint hx of prostate [...] [facility] [address], [place] [phone] Additional Instructions: 1 yr w/ PSA Patient [...] (urinary tract infection) UTI (more content not included)...Wilson HealthComment on above:Result Comment: Electronically Signed By: Barbara JOHNSTON MD\.br\Date and Time Signed: 04/18/24 12:11 EST\.br\Electronically Co-Signed By: Rosario Byrne.br\Date and Time Co-Signed: 04/18/24 12:10 ESTC Urineon 47-44-5922Ngbjwtmu identified Cx Nom (U)Microbiology PROCEDURE: Urine Culture [R1] SOURCE: U Random BODY SITE: COLLECTED DATE/TIME: 04/07/2024 14:25 EST RECEIVED DATE/TIME: 04/07/2024 19:36 EST START DATE/TIME: 04/07/2024 19:36 EST FREE TEXT SOURCE: Karime Bee Alysha J FINAL REPORTS Final Report [] Verified Date/Time: 04/10/2024 15:11 EST 30,000 cfu/ml Staphylococcus aureus SUSCEPTIBILITY RESULTS LEGEND: S=Susceptible, N/R=Not Reported, Blank=Data not available, [...] This test was performed at: [facility], [address] [place] [address], [phone] , , AqspeuZdvdazWilson HealthComment on above:Performed By: #### [id number] #### [facility] [address] [place] [address]Bhogpdb [Mass/volume] in Serum or Plasma by Bromocresol green (BCG) dye binding methoOrdered By: Theo Thakkar on 09-01-4762Alyfxim BCG dye [Mass/Vol]4.2 g/dL3.5-5.7FMount Carmel Health SystemBacteria [Presence] in Urine by AutomatedOrdered By: Theo Thakkar on 17-85-8456Xveurrdb Auto Ql (U)None seen [HPF]None SeenScci Hospital LimaBilirubin Test strip Ql (U) Ordered By: Theo Thakkar on 63-27-1027Qmeghthqv Ql (U)NegativeNegativeScci Hospital LimaCalcium [Mass/volume] in Serum or PlasmaOrdered By: Theo Herrmanndir on 09-23-4516Wvtbloo [Mass/Vol]9.4 mg/dL8.6-10.3FMount Carmel Health SystemCarbon dioxide, total [Moles/volume] in Serum or PlasmaOrdered By: Theo Thakkar on 78-16-3120IU7 [Moles/Vol]24.9 mmol/L21.0-31.0S[facility] Hospital LimaChloride [Moles/volume] in Serum or PlasmaOrdered By: Theo Thakkar on 31-91-4656Npvqcmck [Moles/Vol]105 mmol/C76-789RsdswiyoaScci Hospital LimaColor Auto (U)Ordered By: Theo Thakkar on 59-50-5750Bywnz (U)YellowYellow [facility] LimaCreatinine [Mass/volume] in Serum or Plasma Ordered By: Theo Thakkar on 04-69-3507Kfdzmthxjy [Mass/Vol]1.67 mg/dLHigh 0.70-1.30S[facility] Hospital LimaCreatinine [Mass/volume] in Urine Ordered By: Theo Thakkar on 32-36-4173Btqmshqdji (U) [Mass/Vol]173.00 mg/dL [facility] Hospital LimaComment on above:No reference range established Epithelial cells.squamous [#/area] in Urine sediment by Automated countOrdered By: Theo Thakkar on 33-09-8517Jydkgefhiv cells.squamous Auto (Urine sed) [#/Area] 1-2 [HPF]0-2FMount Carmel Health SystemErythrocyte distribution width Auto (RBC) [Ratio]Ordered By: Theo Thakkar on 61-57-2489Hpwqecqghju distribution width (RBC) [Ratio]15.0 %High12.0-14.8[facility] Erythrocytes [#/area] in Urine sediment by Automated countOrdered By: Theo Thakkar on 47-88-4024HOB Auto (Urine sed) [#/Area]10-19 [HPF]High04FMount Carmel Health SystemGlucose [Mass/volume] in Serum or PlasmaOrdered By: Theo Thakkar on 10-75-6899Pblbnrs [Mass/Vol]95 mg/yD42-191RnmgdrioiScci Hospital LimaComment on above:ADA recommended reference rangeRandom Glucose Reference Range is dependent on time and content of last meal. Glucose of more than 200 mg/dL in a nonstressed, ambulatory subject supports the diagnosisof Diabetes Mellitus.Glucose [Mass/volume] in Urine by Test stripOrdered By: Theo Thakkar on 24-73-3735Yissamt Test strip (U) [Mass/Vol]Normal mg/dLNormalScci Hospital LimaGranular casts [#/area] in Urine by Computer assisted method Ordered By: Theo Thakkar on 63-86-8040Hfaqqkjs casts Computer assisted (U) [#/Area]5-9 [LPF]HighNone SeenScci Hospital LimaHematocrit Auto (Bld) [Volume fraction]Ordered By: Theo Thakkar on 84-26-5972Gwegdkcjiw (Bld) [Volume fraction]34.7 %Low38.8-50.0Scci Hospital LimaHemoglobin Test strip Ql (U)Ordered By: Theo Thakkar on 22-27-7647Inayqmhklq Ql (U)1+High NegativeScci Hospital LimaHemoglobin [Mass/volume] in Blood Ordered By: Theo Thakkar on 66-49-2921Swtzuchqas (Bld) [Mass/Vol]11.4 g/dLLow 13.0-17.0Scci Hospital LimaHyaline casts [#/area] in Urine sediment by Automated countOrdered By: Theo Thakkar on 30-61-4614Qpsphhn casts Auto (Urine sed) [#/Area]20-49 [LPF]High0-8[facility] Ketones Test strip Ql (U)Ordered By: Theo Thakkar on 43-17-7852Atwqeje Ql (U) NegativeNegativeScci Hospital LimaLeukocyte clumps [Presence] in Urine by AutomatedOrdered By: Theo Thakkar on 25-32-8938Xptucfype clumps Auto Ql (U)Many [LPF]HighNone SeenScci Hospital LimaLeukocyte esterase [Presence] in Urine by Test stripOrdered By: Theo Thakkar on 80-29-7780Grmbnnksa esterase Test strip Ql (U)4+HighNegativeScci Hospital Lima Leukocytes [#/area] in Urine sediment by Automated countOrdered By: Theo Thakkar on 61-35-8296TUX Auto (Urine sed) [#/Area]Innumerable [HPF]High0-4FMount Carmel Health SystemLeukocytes [#/volume] corrected for nucleated erythrocytes in Blood by Automated counOrdered By: Theo Thakkar on 50-97-9024WWS corrected for nucl RBC Auto (Bld) [#/Vol]6.9 10*3/uL4.1-10.5FSamaritan HospitalH Auto (RBC) [Entitic mass]Ordered By: Theo Thakkar on 02-25-2024 MCH (RBC) [Entitic mass]28.4 pg27.5-35.2FMount Carmel Health SystemMCHC Auto (RBC) [Mass/Vol]Ordered By: Theo Thakkar on 29-38-3171RNFD (RBC) [Mass/Vol] 32.9 g/dL32.5-35.6FMount Carmel Health SystemMCV Auto (RBC) [Entitic vol] Ordered By: Theo Thakkar on 74-75-8192UWC (RBC) [Entitic vol]86.3 fL83.5-101 [facility] Hospital LimaMagnesium [Mass/volume] in Serum or Plasma Ordered By: Theo Thakkar on 47-00-0452Ydrdnpbsh [Mass/Vol]2.2 mg/dL1.9-2.7 [facility] Hospital LimaMucus [Presence] in Urine by AutomatedOrdered By: Theo Thakkar on 41-51-0995Ckwim Auto Ql (U)Rare [LPF]Scci Hospital LimaNitrite Test strip Ql (U)Ordered By: Theo Thakkar on 02-25-2024 Nitrite Ql (U)NegativeNegativeScci Hospital LimaNo Panel InformationOrdered By: Theo Thakkar on 68-54-8498Gbyvsbwyt GFR (CKD-EPI)41.634 mL/MinScci Hospital LimaPharmacy Creatinine Clearance (ChemN/A [facility] LimaParathyrin.intact [Mass/volume] in Serum or PlasmaOrdered By: Theo Thakkar on 40-44-1650Ycfzgtjfue.intact [Mass/Vol]97.8 pg/bIErzu74-12ZtfoageubScci Hospital LimaPhosphate [Mass/volume] in Serum or PlasmaOrdered By: Theo Thakkar on 89-95-1546Dmmeduotj [Mass/Vol]3.6 mg/dL 2.5-4.5FMount Carmel Health SystemPlatelet mean volume Auto (Bld) [Entitic vol]Ordered By: Theo Thakkar on 46-38-0382Rrukwfgp mean volume (Bld) [Entitic vol]8.9 fL6.6-10.1FMount Carmel Health SystemPlatelets Auto (Bld) [#/Vol] Ordered By: Theo Thakkar on 00-52-0569Cjmjislou (Bld) [#/Vol]305 10*3/nB998-340 [facility] LimaPotassium [Moles/volume] in Serum or Plasma Ordered By: Theo Thakkar on 09-50-1084Mtnnrvsph [Moles/Vol]4.8 mmol/L3.5-5.1 [facility] LimaProtein Test strip (U) [Mass/Vol]Ordered By: Theo Thakkar on 77-31-5715Wbxahyu (U) [Mass/Vol]100 mg/dLHighNegativeScci Hospital LimaProtein [Mass/volume] in UrineOrdered By: Theo Thakkar on 69-79-6972Hvamvbt (U) [Mass/Vol]136 mg/dLHigh0-9[facility] Hospital LimaRBC Auto (Bld) [#/Vol]Ordered By: Theo Thakkar on 56-73-7336AAT (Bld) [#/Vol]4.02 10*6/uL3.90-5.60Miami Valley Hospitalerum or plasma anion gap determinationOrdered By: Theo Thakkar on 01-48-8545Dolug gap [Moles/Vol]11.9 mmol/L6.0-15.0Mi[facility] Valley Hospitalodium [Moles/volume] in Serum or PlasmaOrdered By: Theo Thakkar on 94-69-3299Pzjixi [Moles/Vol]137 mmol/W772-964JpkdyqbkuMiami Valley Hospitalpecific gravity Test strip (U) [Rel density]Ordered By: Theo Thakkar on 46-33-4657Kifrtrzl gravity (U) [Rel density]1.0181.001-1.030S[facility] Hospital LimaUrate [Mass/volume] in Serum or PlasmaOrdered By: Theo Thakkar on 34-31-1299Bthnm [Mass/Vol]5.7 mg/dL4.4-7.6FMount Carmel Health SystemUrea nitrogen [Mass/volume] in Serum or PlasmaOrdered By: Theo Thakkar on 82-70-4227Ptgc nitrogen [Mass/Vol]23 mg/dL7-25S[facility] Hospital LimaUrine appearance Ordered By: Theo Thakkar on 77-33-9248Qbvmomkbcc (U)CloudyAbnormalClearFMount Carmel Health SystemUrine culture routineOrdered By: Theo Thakkar on 40-87-3476Ztwkaila identified Cx Nom (U)Staphylococcus aureusAbParkview Health Bryan HospitalUrine protein/creatinine ratioOrdered By: Theo Thakkar on 91-84-2163Cdjuwsu/Creatinine (U) [Ratio]786 mg/g{Cre}High0-200S[facility] Hospital LimaUrobilinogen Test strip (U) [Mass/Vol]Ordered By: Theo Thakkar on 47-66-5764Caahtofiqhgk (U) [Mass/Vol]Normal mg/dLNoOhioHealth Van Wert HospitalVitamin D+Metabolites [Mass/volume] in Serum or PlasmaOrdered By: Theo Thakkar on 71-89-5066Jcdswga D+Metabolites [Mass/Vol]60.3 ng/aC03-924 [facility] LimaComment on above:VITAMIN D STATUS 25(OH)VITAMIN D RANGE (ng/mL) Deficient <20 Insufficient 20 to <24Qmcwndfgfp73 to 100Reference: Holick MF,Wayne NC, John VILLEGAS, et al. Evaluation,treatment, and prevention of vitamin D deficiency; an Endocrine Society clinical practice guideline. JCEM. 2010; 96(7):1911-30.pH Test strip (U)Ordered By: Theo Thakkar on 09-05-3180qS (U)6.0 [pH]5.0-9.0[facility] Hospital LimaLab Reportson 03-82-0611Qib Reports [id number]#1.00TIFPaulding County HospitalAlanine aminotransferase [Enzymatic activity/volume] in Serum or Plasma Ordered By: Shaikh Dotty on 01-22-5994XGB [Catalytic activity/Vol]13 U/L7-52 [facility] LimaAlbumin [Mass/volume] in Serum or Plasma by Bromocresol green (BCG) dye binding methoOrdered By: Shaikh Dotty on 10-01-2023 Albumin BCG dye [Mass/Vol]4.2 g/dL3.5-5.7FMount Carmel Health System Alkaline phosphatase [Enzymatic activity/volume] in Serum or PlasmaOrdered By: Shaikh Dotty on 67-11-9480DNP [Catalytic activity/Vol]58 U/Y47-816NgpnsuxnaScci Hospital LimaAspartate aminotransferase [Enzymatic activity/volume] in Serum or PlasmaOrdered By: Shaikh Dotty on 18-22-0003WTJ [Catalytic activity/Vol]13 U/G40-88EbpmtefzvScci Hospital LimaBasophils Auto (Bld) [#/Vol]Ordered By: Shaikh Dotty on 07-20-7969Qdxtnfblp (Bld) [#/Vol]0.0 10*3/uL 0.0-0.2FMount Carmel Health SystemBasophils/100 WBC Auto (Bld)Ordered By: Shaikh Dotty on 92-83-7029Zzfnowvqo/100 WBC (Bld)0.4 %.[facility] Hospital LimaBilirubin.total [Mass/volume] in Serum or PlasmaOrdered By: Shaikh Dotty on 44-50-8939Vngnwbfvt [Mass/Vol]0.3 mg/dL0.3-1.0[facility] LimaCalcium [Mass/volume] in Serum or PlasmaOrdered By: Shaikh Dotty on 02-23-0150Fopumsu [Mass/Vol]9.4 mg/dL8.6-10.3FMount Carmel Health SystemCarbon dioxide, total [Moles/volume] in Serum or PlasmaOrdered By: Shaikh Dotty on 56-61-1726AQ8 [Moles/Vol]27.0 mmol/L21.0-31.0[facility] LimaChloride [Moles/volume] in Serum or PlasmaOrdered By: Shaikh Dotty on 00-11-1905Ggimnxtj [Moles/Vol]108 mmol/A60-284EzsqvzookScci Hospital LimaCholesterol [Mass/volume] in Serum or PlasmaOrdered By: Shaikh Dotty on 56-05-3881Karyvonbsej [Mass/Vol]135 mg/aU359-543XafmpiwwvScci Hospital LimaComment on above:Chol less than 200 mg/dl low riskChol 201-239 mg/dl borderline riskChol 240 mg/dl and greater high riskCholesterol in LDL Calc [Mass/Vol]Ordered By: Shaikh Dotty on 39-02-9992Ieszirwpxxg in LDL [Mass/Vol] 81 mg/dL0-100S[facility] Hospital LimaComment on above:LDL ATP III CLASSIFICATIONLDL less than 100 mg/dL OptimalLDL 100-129 mg/dL Near or above xtklzldQMP896-186 mg/dL Borderline highLDL 160-189 mg/dL HighLDL greater than 189 mg/dL Very highCholesterol in VLDL Calc [Mass/Vol]Ordered By: Shaikh Dotty on 81-22-6955Hctsuqirgak in VLDL [Mass/Vol]16 mg/dLScci Hospital LimaCreatinine [Mass/volume] in Serum or PlasmaOrdered By: Shaikh Dotty on 13-31-0105Sccwxqqcqo [Mass/Vol]1.89 mg/dL0.70-1.30[facility] LimaCreatinine [Mass/volume] in UrineOrdered By: Shaikh Dotty on 10-01-2023 Creatinine (U) [Mass/Vol]164.0 mg/dLScci Hospital LimaComment on above:No reference range establishedEosinophils Auto (Bld) [#/Vol]Ordered By: Shaikh Dotty on 34-49-7665Oteexesmkls (Bld) [#/Vol]0.2 10*3/uL0.0-0.45Scci Hospital LimaEosinophils/100 WBC Auto (Bld)Ordered By: Shaikh Dotty on 01-56-5248Bnpuqymkbkq/100 WBC (Bld)2.7 %.[facility] Erythrocyte distribution width Auto (RBC) [Ratio]Ordered By: Shaikh Dotty on 59-95-7418Odsrtrzbfgn distribution width (RBC) [Ratio]14.9 %12.0-14.8S[facility] Hospital LimaGlobulin Calc (S) [Mass/Vol]Ordered By: Shaikh Dotty on 84-21-7689Pikyjqgd (S) [Mass/Vol]2.5 g/dLScci Hospital Lima Glucose [Mass/volume] in Serum or PlasmaOrdered By: Shaikh Dotty on 10-01-2023 Glucose [Mass/Vol]115 mg/wB52-057XrxjmwfltScci Hospital LimaComment on above:ADA recommended reference rangeRandom Glucose Reference Range is dependent on time and content of last meal. Glucose of more than 200 mg/dL in a nonstressed, ambulatory subject supports the diagnosisof Diabetes Mellitus. Glucose mean value [Mass/volume] in Blood Estimated from glycated hemoglobin Ordered By: Shaikh Dotty on 65-04-6100Gaeyymc glucose Estimated from glycated hemoglobin (Bld) [Mass/Vol]128 mg/dLScci Hospital LimaHematocrit Auto (Bld) [Volume fraction]Ordered By: Shaikh Dotty on 21-47-6621Amdwvlnrvq (Bld) [Volume fraction]37.2 %38.8-50.0[facility] Hemoglobin A1c percentageOrdered By: Shaikh Dotty on 04-70-0372EmO0w (Bld) [Mass fraction]6.1 %4.3-5.6FMount Carmel Health SystemComment on above: Increased risk for diabetes: 5.7 - 6.4diabetes: >6.4glycemic control for adults with diabetes: <7.0Hemoglobin [Mass/volume] in BloodOrdered By: Shaikh Dotty on 11-23-8537Yusoobekgt (Bld) [Mass/Vol]12.3 g/dL13.0-17.0[facility] Hospital LimaLeukocytes [#/volume] corrected for nucleated erythrocytes in Blood by Automated counOrdered By: Shaikh Dotty on 84-94-9698LPW corrected for nucl RBC Auto (Bld) [#/Vol]8.3 10*3/uL4.1-10.5FMount Carmel Health System Lymphocytes Auto (Bld) [#/Vol]Ordered By: Shaikh Dotty on 67-31-2399Fdolvaqgrtp (Bld) [#/Vol]1.3 10*3/uL1.00-4.8[facility] Lymphocytes/100 WBC Auto (Bld)Ordered By: Shaikh Dotty on 10-01-2023 Lymphocytes/100 WBC (Bld)16.1 %.[facility] Auto (RBC) [Entitic mass]Ordered By: Shaikh Dotty on 59-03-4277EJL (RBC) [Entitic mass] 30.5 pg27.5-35.2FMount Carmel Health SystemMCHC Auto (RBC) [Mass/Vol] Ordered By: Shaikh Dotty on 69-20-8632GABB (RBC) [Mass/Vol]33.1 g/dL32.5-35.6 [facility] Hospital LimaMCV Auto (RBC) [Entitic vol]Ordered By: Shaikh Dotty on 04-94-6628FGX (RBC) [Entitic vol]92.2 fL83.5-101S[facility] Hospital LimaMonocytes Auto (Bld) [#/Vol]Ordered By: Shaikh Dotty on 61-46-1863Fueidrpkf (Bld) [#/Vol]0.6 10*3/uL0.0-0.8[facility] Hospital LimaMonocytes/100 WBC Auto (Bld)Ordered By: Shaikh Dotty on 10-01-2023 Monocytes/100 WBC (Bld)7.6 %.[facility] Hospital LimaNeutrophils Auto (Bld) [#/Vol]Ordered By: Shaikh Dotty on 32-74-3811Jxtrcgsuota (Bld) [#/Vol]6.1 10*3/uL1.8-7.7FMount Carmel Health SystemNeutrophils/100 WBC Auto (Bld) Ordered By: Shaikh Dotty on 56-70-8229Vhobamsyzix/100 WBC (Bld)73.2 %.[facility] LimaNo Panel InformationOrdered By: Shaikh Dotty on 88-13-6000Ufisethlg GFR (CKD-EPI)35.887 mL/MinScci Hospital Lima Pharmacy Creatinine Clearance (ChemN/AFMount Carmel Health SystemNucleated erythrocytes [Presence] in Blood by Automated countOrdered By: Shaikh Dotty on 27-84-3906Fiurnrmmz RBC Auto Ql (Bld)0.1 /100{WBC}0-0.5FMount Carmel Health SystemPlatelet mean volume Auto (Bld) [Entitic vol]Ordered By: Shaikh Dotty on 69-89-6516Njqkagjv mean volume (Bld) [Entitic vol]8.7 fL6.6-10.1 [facility] LimaPlatelets Auto (Bld) [#/Vol]Ordered By: Shaikh Dotty on 49-80-6105Anerwubsg (Bld) [#/Vol]270 10*3/wA899-855UinymgoovScci Hospital LimaPotassium [Moles/volume] in Serum or PlasmaOrdered By: Shaikh Dotty on 37-26-5273Tyormsjex [Moles/Vol]4.9 mmol/L3.5-5.1FMount Carmel Health SystemProstate specific Ag [Mass/volume] in Serum or PlasmaOrdered By: Barbara Johnston on 02-98-0381Yhghramm specific Ag [Mass/Vol]0.420 ng/mL 0.000-4.000S[facility] Hospital LimaComment on above:Serial tumor marker results determined by assays using different manufacturers or methods may not be comparable.[facility] 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:[employer] DXI, CHEMILUMINESCENT IMMUNOASSAY.Protein [Mass/volume] in Serum or PlasmaOrdered By: Shaikh Dotty on 11-26-1559Quwsioz [Mass/Vol]6.7 g/dL6.4-8.9[facility] Hospital LimaProtein [Mass/volume] in UrineOrdered By: Shaikh Dotty on 49-40-7118Oyeqhwg (U) [Mass/Vol]124 mg/dL0-9S[facility] Hospital LimaRBC Auto (Bld) [#/Vol]Ordered By: Shaikh Dotty on 70-18-1883TAV (Bld) [#/Vol]4.04 10*6/uL3.90-5.60Mi[facility] Valley Hospitalerum or plasma albumin/globulin mass ratioOrdered By: Shaikh Dotty on 10-01-2023 Albumin/Globulin [Mass ratio]1.7 {ratio}[facility] Hospitalerum or plasma anion gap determinationOrdered By: Shaikh Dotty on 81-02-5175Pzgff gap [Moles/Vol]9.9 mmol/L6.0-15.0Mi[facility] Valley Hospitalerum or plasma high density lipoprotein (HDL) cholesterol measurementOrdered By: Shaikh Dotty on 55-62-2692Bhfkyzgjaei in HDL [Mass/Vol]38 mg/jR56-14FpgazeocuScci Hospital LimaComment on above:HDL CHOL ATP-III CLASSIFICATION Cardiovascular RiskHDL > or equal to 60 mg/dL LOWHDL < 40 mg/dL HIGHSerum or plasma total cholesterol/high density lipoprotein (HDL) cholesterol mass ratOrdered By: Shaikh Dotty on 53-18-3565Rttpbhmvnuc.total/Cholesterol in HDL [Mass ratio]3.6 {ratio}<5.0Mi[facility] Valley Hospitalodium [Moles/volume] in Serum or PlasmaOrdered By: Shaikh Dotty on 03-00-0700Emfsjw [Moles/Vol]140 mmol/D356-295 [facility] Hospital LimaThyrotropin [Units/volume] in Serum or Plasma Ordered By: Shaikh Dotty on 17-48-2881EUR Qn1.61 m[IU]/L0.45-5.33Scci Hospital LimaTriglyceride [Mass/volume] in Serum or PlasmaOrdered By: Shaikh Dotty on 85-36-8818Sclvoyloebum [Mass/Vol]80 mg/dL0-149S[facility] Hospital LimaComment on above:TRIG ATP III CLASSIFICATIONTRIG less than 150 mg/dL NormalTRIG 150-199 mg/dL Borderline highTRIG 200-500 mg/dL High TRIG greater than 500 mg/dL Very highStandard traceable to the Center for Disease Conrtrol and Prevention (CDC) test method.Urea nitrogen [Mass/volume] in Serum or PlasmaOrdered By: Shaikh Dotty on 36-40-2892Vjec nitrogen [Mass/Vol] 33 mg/dL7-25S[facility] Hospital LimaWBC Auto (Bld) [#/Vol]Ordered By: Shaikh Dotty on 77-85-1783NAB (Bld) [#/Vol]8.3 10*3/uL4.1-10.5FMount Carmel Health SystemAmbulatory Visit Summaryon 45-40-1419Rpueouvjwt Visit Summary YESENIA BROUSSARD :1945 Visit Date:09/18/2023 Ambulatory Visit Instructions Your Diagnosis Nocturia Erectile dysfunction BPH with urinary obstruction History of prostate cancer History of UTI Your Care Team Attending Physician - Barbara JOHNSTON MD Primary Care Physician - DOTTY MAK, This Is Your Medications List tadalafil (Cialis 20 mg Tab) Contact prescribing physician if questions or concerns acetaminophen-hydrocodone (Bricelyn 5/325 Tab) amlodipine (amLODIPine 5 mg Tab) [...] beam radiation therapy) (04/23/2022), Transurethral resection of prostate(06/06/2021), Cystoscopy (04/23/2021), Transrectal biopsy of prostate using ultrasound guidance (04/23/2021), Cataracts, Colonoscopy, Endarterectomy, Procedure on back. Discharge Vitals Heart Rate (Peripheral) 76 Respiratory Rate 16 Blood Pressure 128/81 Height 178 cm Height 70 in Weight 92 kg Weight 202.4 lb BMI 29.04 What to do next You Need to Schedule the Following Appointments Follow Up with PRESTON MAK, GLO Ortega When: Where: [address] [place] [address]- Medications What How Much When Instructions Unchanged tadalafil (Cialis 20 mg Tab) 1 Tablets By Mouth As Directed Do not exceed 20mg within 48 hours. Unchanged acetaminophen-hydrocodone (Bricelyn 5/ 325 Tab) By Mouth Every 6 hours Contact prescribing physician if questions or concerns Unchanged amlodipine (amLODIPine 5 mg Tab) By Mouth Every day Contact prescribing physician if questions or concerns Unchanged aspirin (aspirin 81 mg oral capsule) By Mouth Every 4 hours Contact prescribing physicianif questions or concerns Unchanged baclofen (baclofen 10 [...] Keep a bladder diary (more content not included)...Wilson HealthPatient Educationon 02-19-1291Wjpewtj EducationUrology Urinary Frequency, Adult Urinary frequency means urinating [...] the muscles that help control urination, which mayhelp the condition. Eating and drinking Follow instructions [...] treat constipation. Constipation can make urinary frequency worse.You may need to take these actions to prevent or treat constipation: ? Drink enough fluid to keep your urine pale yellow. ? Take cewb-cny-bnkpify or prescription medicines. ? Eat foods that are high in fiber, such as beans, whole grains, and fresh fruits and vegetables. ? Limit foods that are high in fat and processed sugars, such as fried or sweet foods. General instructions ? Take majc-oga-zptukdu and prescription medicines only as told by [...] muscles that help control urination. ? Take yehu-xau-tkvlgnz and prescription medicines only as told by your health care provider. ? Contact a health care provider if your symptoms do not improve or get worse. This information is not intended to replace advice given to you by your health care provider. Make sure you discuss any questions you have with your health care provider. Document Revised: 12/21/2020 Document Reviewed: 12/21/2020 [employer]byJackpot Patient Education ? 2022 [facility] Urology Office/Clinic Noteon 76-79-5242Hdlrlrw Office/Clinic NoteChief Complaint 3m to med change HPI Staff [...] and history for this patient from Dr. Babar James PA-C. I have reviewed and verified [...] pain or sleep apnea, not necessarily due tothe urge to void. Advised pt to d/c [...] Information PRESTON MAK, Barbara Warner, [address] [place] [address]- Additional Instructions: 6 mos w/ PSA Patient Education Urinary Frequency, Adult I, Tabitha Saenz, personally scribed for Dr. Johnston on 09/18/2023 11:55:58. . Documentation recorded by the scribe, Tabitha Saenz, accurately reflects the services(s) I performed and decisions made by me. Authenticated by Dr. Johnston on 09/18/2023 11:59:13. Problem List/Past Medical History Ongoing Anxiety BPH with (more content not included)...Wilson HealthComment on above:Result Comment: Electronically Signed By: Barbara JOHNSTON MD\.br\Date and Time Signed: 09/18/23 11:59 EDT\.br\Electronically Co-Signed By: Tabitha Saenzbr\Date and Time Co-Signed: 09/17/2410:56 EDTECG 12 Leadon 39-24-5066Agqeur sinus rhythm, right bundle branch block and left anterior fascicular block consistent with bifascicular block, abnormal ECGCPHolzer Medical Center – Jackson Work Phone: c Urineon 52-23-2819Xyrgwtrs identified Cx Nom (U) Microbiology PROCEDURE: Urine Culture [R1] SOURCE: U Random BODY SITE: COLLECTED DATE/TIME: 07/07/2023 09:50 EST RECEIVED DATE/TIME: 07/07/2023 19:09 EST START DATE/TIME: 07/07/2023 19:09 EST FREE TEXT SOURCE: BRITNI ENCINAS, CLAIRE JAMES PA-C, CLAIRE Boswell FINAL REPORTS Final Report [] Verified Date/Time: 07/11/2023 11:11 EST 25,000 cfu/ml Staphylococcus aureus SUSCEPTIBILITY RESULTS LEGEND: S=Susceptible, N/R=Not Reported, Blank=Data not available, [...] This test was performed at: [facility], [address] [place] [address], [address]- , , NrumpqXrpaclWilson HealthComment on above:Performed By: #### [id number] ####[facility] [address] [place], [place] [address]Consultation Noteon 58-21-1145Essfcrhisuwb Note [id number]#1.00TIFPaulding County HospitalLab Reportson 70-74-6700Gmk Reports [id number]#1.00[facility]lap Memorial HospitalPatient Educationon 63-64-3327Jxddnuq EducationUrology Urinary Frequency, Adult Urinary frequency means urinating [...] the muscles that help control urination, which mayhelp the condition. Eating and drinking Follow instructions [...] treat constipation. Constipation can make urinary frequency worse.You may need to take these actions to prevent or treat constipation: ? Drink enough fluid to keep your urine pale yellow. ? Take odwp-uak-epnhqvx or prescription medicines. ? Eat foods that are high in fiber, such as beans, whole grains, and fresh fruits and vegetables. ? Limit foods that are high in fat and processed sugars, such as fried or sweet foods. General instructions ? Take svld-bhu-pccviwy and prescription medicines only as told by [...] muscles that help control urination. ? Take iryj-egt-vjcvoqa and prescription medicines only as told by your health care provider. ? Contact a health care provider if your symptoms do not improve or get worse. This information is not intended to replace advice given to you by your health care provider. Make sure you discuss any questions you have with your health care provider. Document Revised: 12/21/2020 Document Reviewed: 12/21/2020 [employer] Patient Education ? 2022 [facility] Office/Clinic Noteon 87-87-3036Xbnopnf Office/Clinic NoteChief Complaint 2 month F/U HPI Staff PRW pt 2m to stopping Oxybutynin & beginning Desmopressin 0.05mg qhs for Nocturia. Additional DX: UTI Sx, ED, Prostate Cancer & BPH. Pt was also started on Sildenafil 50mg PRN for ED. S/P TRUS/BX done 04/23/21, TURP done 06/06/21, prostate MRI 11/26/21 and EBRT 03/18/22-04/23/22. PSA 0.43 done05/12/23, Dr. Nazario checking PSA. Pt. last seen [...] send for culture due to pt being concernedof a UTI. However I'm not convinced this is contributing to his sx as he's had 2 rounds of abx w/o sx change. Follow-up With When Contact Information PRESTON MAK, Barbara Warner, [address] [place] [address]- Additional Instructions: 3 mos Patient Education Urinary Frequency, Adult Documentation recorded by the scribe Tabitha Saenz accurately reflects the services(s) I performed and decisions made (more content not included)...Normal [facility] Medical CenterComment on above:Result Comment: Electronically Signed By: CLAIRE JAMES PA-C\.br\Date and Time Signed: 07/07/2409:08 EST\.br\Electronically Co-Signed By: Tabitha Saenz\Date and Time Co- Signed: 07/07/23 09:50 ESTNUCLEAR STRESS TESTon 11-14-6618YGWVDCO STRESS TEST Interpreted By: Inge Dickerson and Beal Gina STUDY: MYOCARDIAL PERFUSION STRESS TEST WITH LEXISCAN Performing facility: [facility], [address] [place] [address], [address], [place] [address] [facility] Provider: Sylvester Grayson DO, [facility] PCP: Dr. Agus STORM Supervising provider: Inge Dickerson MD INDICATION: HTN, Bilateral Carotid, Chest Pain HISTORY: Gender: M; Age: 77 y/o ; Height: HT 177.8 cm cm; Weight: WT 89.812 kg kg. CAD; High Cholesterol; Abnormal EKG; RBBB Previous IL; Family HX CAD; Chest Pain; COPD; PAD, CVA, Carotid Disease, CKD Currently smoking. Cardiac catheterization. PTCA 1990s RCA. COMPARISON: No comparison. ACCESSION NUMBER(S): [id number] ORDERING CLINICIAN: CHAIM GRAYSON TECHNIQUE: ONE DAY [...] Inge Dickerson 06/19/2023 11:20 AM Dictation workstation: [id number] District Hospital [place] 24-77-9746SJACOttlmz Visit (SPSLUH) YESENIA BROUSSARD ([id number]) 1945 M Date Time Provider Department 06/12/23 11:00 AM KODI [facility] During your visit today, we recorded the [...] heat Medications: See medication reconciliation list in [facility] MEDICATIONS: Hydrocodone, Gabapentin 2018 back surgery with [...] pleasant 77-year-old male who recently moved from [place] to [place]. He reports longstanding history of back and [...] in law suit/legal clai (more content not included)...NormalLutheran HospitalECG 12 Leadon 14-70-8495Hwgdh rhythm, right bundle branch block, left axis deviation, abnormal ECGCPACSParkview Health Bryan Hospital Work Phone: Lab Reportson 35-14-7408Tso Reports [id number]#1.00TIFPaulding County HospitalLab Reportson 02-39-6816Zvs Reports [id number]#1.00Dunlap Memorial HospitalPhysician Orderon 09-05-0626Mjisveivc Order [id number]#1.00TIFKindred Healthcare Urineon 18-16-4501Tbnofjtn identified Cx Nom (U)Microbiology PROCEDURE: Urine Culture [R1] SOURCE: U Random BODY SITE: COLLECTED DATE/TIME: 04/21/2023 09:29 EST RECEIVED DATE/TIME: 04/21/2023 17:59 EST START DATE/TIME: 04/21/2023 18:00 EST FREE TEXT SOURCE: CLAIRE JAMES PA-C, PA-C, JENNIFER E FINAL REPORTS Final Report [] Verified Date/Time: 04/25/2023 09:40 EST 15,000 cfu/ml Staphylococcus aureus 500 cfu/ml Mixed skin contaminants SUSCEPTIBILITY RESULTS LEGEND: S=Susceptible, N/R=Not Reported, Blank=Data not available, [...] Locations R1: This test was performed at: [facility], [address] [place] [address], [address] , , CqalpbYrrnszWilson HealthComment on above:Performed By: #### [id number] ####[facility] [address] [place], [place] [address]Frcfgoglx 83-32-9401Nktkorn [id number]#1.00TIFAultman [id number]#1.00TIFPaulding County HospitalAmbulatory Visit Summaryon 55-00-9996Ycnmatywkl Visit Summary YESENIA BROUSSARD :1945 Visit Date:04/21/2023 Ambulatory Visit Instructions Your Diagnosis Nocturia UTI symptoms Erectile dysfunction Prostate cancer BPH with urinary obstruction Tests Performed Urnls Dip Stick Auto w/o Microscopy POC 99[address] Your Care Team Attending Physician - CLAIRE JAMES PA-C Primary Care Physician - DOTTY MAK [facility] This Is Your Medications List oxybutynin (oxybutynin 5 mg Tab) Contact prescribing physician if questions or concerns acetaminophen-hydrocodone (Bricelyn 5/325 Tab) amlodipine (amLODIPine 5 mg Tab) [...] beam radiation therapy) (04/23/2022), Transurethral resection of prostate(06/06/2021), Cataracts, Colonoscopy, Endarterectomy, Procedure on back. Discharge Vitals Heart Rate (Peripheral) 76 Respiratory Rate 16 Blood Pressure 151/86 Height 70 in Height 178 cm Weight 202.4 lb Weight 92 kg BMI 29.04 What to do next Scheduled Follow-Up Appointments Thursday 9:00 AM EST With: CLAIRE JAMES PA-C [facility]on 37-34-1417Nkarpdn EducationUrology Erectile Dysfunction Erectile dysfunction (ED) is the inability to get or keep an erection in order to have sexual intercourse. ED is considered a symptom of an underlying disorder and is not considered a disease. ED mayinclude: ? Inability to get an erection. ? [...] The tube is inserted into the opening atthe tip of the penis, which is the opening of the urethra. A tiny pellet of medicine is put in the urethra. The pellet dissolves and enhances erectile function. This is also called MUSE (medicated urethral system for erections) therapy. ? Vacuum pump. This is a pump with a ring on it. The pump and ring are placed on the penis and usedto create pressure that helps the penis become [...] these instructions at home: Medicines ? Take spwm-irs-wjuwqnj and prescription medicines only as told by [...] to prevent headaches while taking ED medicines. Thesemedicines may cause a sudden headache due to the increase in blood flow in your body. General instructions ? Exercise regularly, as directed by your health care provider. Work with your health care providerto lose weight, if needed. ? Do not use any products that contain nicotine or tobacco. These products include cig (more content not included)...[facility] Office/Clinic Noteon 38-50-4023Fuvgezh Office/Clinic NoteChief Complaint 2 month F/U178 HPI Staff Pt here for a 2 month F/U to stopping Terazosin therapy & possibly doubling Oxybutynin qhs. Pt.states no big changes since changing to Oxybutynin. [...] rad onc note found on [employer] or ClinTooth Banknc BPH *No BPH meds at this time* [...] 0.05mg qhs. Rx sent to [facility] in [place]. -Check electrolytes in 1 wk after starting [...] monitor closely for these, as well as forsymptom improvement. If severe side effects occur, the medication should be stopped and the office notified. -Begin Sildenafil 50mg prn. Rx sent to [facility] in [place]. 4. Prostate cancer (C61: Malignant neoplasm of [...] with urinary obstruction (N4 (more content not included)...[facility] HealthComment on above:Result Comment: Electronically Signed By: CLAIRE JAMES PA-C\.br\Date and Time Signed: 04/21/2309:33 EST\.br\Electronically Co-Signed By: Rosario Byrne.br\Date and Time Co-Signed: 04/21/23 09:14 ESTCreatinine [Mass/volume] in Serum or PlasmaOrdered By: Jose Martin Mchugh on 48-87-2670Vvgrijzusl [Mass/Vol]2.03 mg/dL0.70-1.30[facility]imaNo Panel InformationOrdered By: Jose Martin Mchugh on 88-93-3972Sjepcuoeu GFR (CKD-EPI)33.144 mL/MinS[facility]ima [facility] Creatinine Clearance (Chem34.29[facility] LimaUrea nitrogen [Mass/volume] in Serum or PlasmaOrdered By: Jose Martin Mchugh on 09-49-9036Rvgh nitrogen [Mass/Vol]35 mg/dL7-25[facility] Albumin [Mass/volume] in Serum or Plasma by Bromocresol green (BCG) dye binding methoOrdered By: Theo Thakkar on 21-61-0175Zskzyem BCG dye [Mass/Vol]4.1 g/dL 3.5-5.7FMount Carmel Health SystemAutomated erythrocytes count in urine sediment (number/area)Ordered By: Theo Thakkar on 95-29-2905YQC Auto (Urine sed) [#/Area]5-9 [HPF]0-4FMount Carmel Health SystemAutomated leukocytes count in urine sediment (number/area)Ordered By: Theo Thakkar on 19-25-7187IFY Auto (Urine sed) [#/Area]Innumerable [HPF]0-4FMount Carmel Health System Bilirubin Test strip Ql (U)Ordered By: Theo Thakkar on 92-77-5088Rmasrbblw Ql (U) NegativeNegativeScci Hospital LimaCalcium [Mass/volume] in Serum or PlasmaOrdered By: Theo Thakkar on 61-90-9633Benzptq [Mass/Vol]9.3 mg/dL 8.6-10.3FMount Carmel Health SystemCarbon dioxide, total [Moles/volume] in Serum or PlasmaOrdered By: Theo Thakkar on 45-31-5165ZV4 [Moles/Vol]26.4 mmol/L 21.0-31.0[facility] LimaChloride [Moles/volume] in Serum or PlasmaOrdered By: Theo Thakkar on 09-99-3489Qahiehhf [Moles/Vol]104 mmol/L98-107 [facility] LimaColor Auto (U)Ordered By: Theo Thakkar on 60-77-0435Frbic (U)YellowYellowScci Hospital LimaCreatinine [Mass/volume] in Serum or PlasmaOrdered By: Theo Thakkar on 48-25-2937Yhixspzlsg [Mass/Vol]1.83 mg/dL0.70-1.30[facility] LimaCreatinine [Mass/volume] in UrineOrdered By: Theo Thakkar on 02-54-9823Ppnxyakwaj (U) [Mass/Vol]162.0 mg/dL14.0-26.0[facility] LimaGlucose [Mass/volume] in Serum or PlasmaOrdered By: Theo Thakkar on 14-59-0103Akoyodd [Mass/Vol]126 mg/bS86-124HzxlkcoloScci Hospital LimaComment on above:ADA recommended reference rangeRandom Glucose Reference Range is dependent on time and content of last meal. Glucose of more than 200 mg/dL in a nonstressed, ambulatory subject supports the diagnosisof Diabetes Mellitus.Ketones Auto test strip (U) [Mass/Vol]Ordered By: Theo Thakkar on 32-68-0899Joiipvu (U) [Mass/Vol] NegativeNegativeScci Hospital LimaLaboratory - UrinalysisOrdered By: Theo Thakkar on 28-35-6677Rprnkzi casts LM Ql (Urine sed)None seen [LPF]0-8 [facility] LimaMagnesium [Mass/volume] in Serum or Plasma Ordered By: Theo Thakkar on 63-96-5916Upwotnioz [Mass/Vol]2.2 mg/dL1.9-2.7 [facility] LimaNitrite Test strip Ql (U)Ordered By: Theo Thakkar on 33-62-8857Joyrobu Ql (U)NegativeNegativeScci Hospital LimaNo Panel InformationOrdered By: Theo Thakkar on 30-35-5694Wtmkfaqda GFR (CKD-EPI)37.537 mL/MinScci Hospital LimaPharmacy Creatinine Clearance (ChemN/AFMount Carmel Health SystemParathyrin.intact [Mass/volume] in Serum or PlasmaOrdered By: Theo Thakkar on 03-09-2023 Parathyrin.intact [Mass/Vol]128.0 pg/dF06-51TdfdsrkhrScci Hospital Lima Phosphate [Mass/volume] in Serum or PlasmaOrdered By: Theo Thakkar on 03-09-2023 Phosphate [Mass/Vol]4.1 mg/dL3.7-7.2FMount Carmel Health SystemPotassium [Moles/volume] in Serum or PlasmaOrdered By: Theo Thakkar on 24-05-0201Lsshmbufk [Moles/Vol]4.7 mmol/L3.5-5.1FMount Carmel Health SystemProtein Auto test strip (U) [Mass/Vol]Ordered By: Theo Thakkar on 17-54-1836Ybkjuiz (U) [Mass/Vol] 100 mg/dLNegativeScci Hospital LimaProtein [Mass/volume] in Urine Ordered By: Theo Thakkar on 13-04-5953Bixkrqo (U) [Mass/Vol]104 mg/dL0-9Mi[facility] Valley Hospitalerum or plasma anion gap determinationOrdered By: Theo Thakkar on 29-71-1127Prpnx gap [Moles/Vol]10.3 mmol/L6.0-15.0[facility] Hospitalodium [Moles/volume] in Serum or PlasmaOrdered By: Theo Thakkar on 19-36-6350Jnuwkx [Moles/Vol]136 mmol/E444-087LlztlafnxScci Hospital Lima Specific gravity Auto test strip (U) [Rel density]Ordered By: Theo Thakkar on 41-48-5269Rgbwbizi gravity (U) [Rel density]1.0181.001-1.030[facility] Hospitalquamous epithelial cells detection in urine sediment by light microscopyOrdered By: Theo Thakkar on 71-04-8291Fzzgxuxmct cells.squamous LM Ql (Urine sed)None seen [HPF]0-2FMount Carmel Health SystemUrate [Mass/volume] in Serum or PlasmaOrdered By: Theo Thakkar on 89-90-9546Xktuf [Mass/Vol]7.1 mg/dL4.4-7.6FMount Carmel Health SystemUrea nitrogen [Mass/volume] in Serum or PlasmaOrdered By: Theo Thakkar on 34-75-7757Gjxu nitrogen [Mass/Vol]30 mg/dL7-25[facility] LimaUrine bacteria detection by automated methodOrdered By: Theo Thakkar on 70-48-5986Kjdaknus Auto Ql (U)None seenNone SeenScci Hospital LimaUrine clarity by refractometry automatedOrdered By: Theo Thakkar on 48-95-6819Wzgtcag Refractometry automated (U)CloudyClearFMount Carmel Health SystemUrine culture routineOrdered By: Theo Thakkar on 57-68-1137Pmljdbyh identified Cx Nom (U)Staphylococcus aureusScci Hospital LimaBacteria identified Cx Nom (U)Staphylococcus aureusScci Hospital LimaUrine glucose measurement by automated test strip (mass/volume)Ordered By: Theo Thakkar on 68-55-6156Cudqozs Auto test strip (U) [Mass/Vol]Normal mg/dLAvita Health System Galion HospitalUrine hemoglobin detection by automated test stripOrdered By: Theo Thakkar on 10-26-2299Tijmiijyql Auto test strip Ql (U)1+Negative [facility] LimaUrine leukocyte esterase detection by automated test stripOrdered By: Theo Thakkar on 20-16-9186Sztmrbtec esterase Auto test strip Ql (U)4+NegativeScci Hospital LimaUrine protein/creatinine ratioOrdered By: Theo Thakkar on 68-05-8243Ilmpqmw/Creatinine (U) [Ratio]642 mg/g{Cre}0-200[facility] LimaUrobilinogen Auto test strip (U) [Mass/Vol]Ordered By: Theo Thakkar on 63-92-5592Cqvkjxglityy (U) [Mass/Vol]Normal mg/dLNoOhioHealth Van Wert HospitalVitamin D+Metabolites [Mass/volume] in Serum or PlasmaOrdered By: Theo Thakkar on 27-45-6936Zpfkqjc D+Metabolites [Mass/Vol]18.9 ng/dR60-160OyiwdmxpyScci Hospital LimaComment on above: VITAMIN D STATUS 25(OH)VITAMIN D RANGE (ng/mL) Deficient <20 Insufficient 20 to <02Vaeefutymt48 to 100Reference: Grecia MF,Wayne PALMER, John VILLEGAS, et al. Evaluation,treatment, and prevention of vitamin D deficiency; an Endocrine Society clinical practice guideline. JCEM. 2010; 96(7):1911-30.pH Auto test strip (U)Ordered By: Theo Thakkar on 85-49-4934tY (U)5.5 [pH]5.0-9.0[facility] LimaAlanine aminotransferase [Enzymatic activity/volume] in Serum or PlasmaOrdered By: Shaikh Dotty on 99-89-5099YIL [Catalytic activity/Vol]12 U/L7-52[facility] LimaAlbumin [Mass/volume] in Serum or Plasma by Bromocresol green (BCG) dye binding methoOrdered By: Shaikh Dotty on 65-17-0930Zdfqloi BCG dye [Mass/Vol]4.2 g/dL3.5-5.7FMount Carmel Health SystemAlkaline phosphatase [Enzymatic activity/volume] in Serum or PlasmaOrdered By: Shaikh Dotty on 16-74-2881AXP [Catalytic activity/Vol]66 U/L 34-104[facility] LimaAspartate aminotransferase [Enzymatic activity/volume] in Serum or PlasmaOrdered By: Shaikh Dotty on 46-12-5588WQQ [Catalytic activity/Vol]13 U/T17-87CqfrnhewoScci Hospital LimaBasophils Auto (Bld) [#/Vol]Ordered By: Shaikh Dotty on 76-79-1247Zhkxhfwks (Bld) [#/Vol] 0.0 10*3/uL0.0-0.2FMount Carmel Health SystemBasophils/100 WBC Auto (Bld) Ordered By: Shaikh Dotty on 49-30-1923Xfiopguep/100 WBC (Bld)0.5 %.[facility] LimaBilirubin.total [Mass/volume] in Serum or PlasmaOrdered By: Shaikh Dotty on 02-46-9373Woeqlrdte [Mass/Vol]0.3 mg/dL0.3-1.0[facility] LimaCalcium [Mass/volume] in Serum or PlasmaOrdered By: Shaikh Dotty on 79-13-1831Fsqrtss [Mass/Vol]9.2 mg/dL8.6-10.3FMount Carmel Health SystemCarbon dioxide, total [Moles/volume] in Serum or PlasmaOrdered By: Shaikh Dotty on 76-99-6618GU8 [Moles/Vol]26.1 mmol/L21.0-31.0[facility] LimaChloride [Moles/volume] in Serum or PlasmaOrdered By: Shaikh Dotty on 08-66-0745Hsqgmkry [Moles/Vol]109 mmol/S31-971MoongectyScci Hospital LimaCholesterol [Mass/volume] in Serum or PlasmaOrdered By: Shaikh Dotty on 44-84-0594Koijugiisbc [Mass/Vol]178 mg/bS230-305SxdytrcvgScci Hospital LimaComment on above:Chol less than 200 mg/dl low riskChol 201-239 mg/dl borderline riskChol 240 mg/dl and greater high riskCholesterol in LDL Calc [Mass/Vol]Ordered By: Shaikh Dotty on 82-34-8392Uivwqgnjytg in LDL [Mass/Vol]115 mg/dL0-100[facility] LimaComment on above:LDL ATP III CLASSIFICATIONLDL less than 100 mg/dL OptimalLDL 100-129 mg/dL Near or above cyosoylNYJ459-679 mg/dL Borderline highLDL 160-189 mg/dL HighLDL greater than 189 mg/dL Very highCholesterol in VLDL Calc [Mass/Vol]Ordered By: Shaikh Dotty on 91-19-2386Iqmmqmbevrw in VLDL [Mass/Vol]32 mg/dLScci Hospital LimaCreatinine [Mass/volume] in Serum or PlasmaOrdered By: Shaikh Dotty on 44-97-2259Slsjuchmjw [Mass/Vol]1.80 mg/dL0.70-1.30[facility] LimaEosinophils Auto (Bld) [#/Vol]Ordered By: Shaikh Dotty on 55-87-1460Zyewcpuznfq (Bld) [#/Vol]0.2 10*3/uL0.0-0.45[facility] LimaEosinophils/100 WBC Auto (Bld)Ordered By: Shaikh Dotty on 01-09-2023 Eosinophils/100 WBC (Bld)3.9 %.[facility] Hospital LimaErythrocyte distribution width Auto (RBC) [Ratio]Ordered By: Shaikh Dotty on 01-09-2023 Erythrocyte distribution width (RBC) [Ratio]14.6 %12.0-14.8[facility] LimaGlobulin Calc (S) [Mass/Vol]Ordered By: Shaikh Dotty on 19-72-4673Lrjguzkw (S) [Mass/Vol]2.7 g/dLScci Hospital Lima Glucose [Mass/volume] in Serum or PlasmaOrdered By: Shaikh Dotty on 01-09-2023 Glucose [Mass/Vol]114 mg/yL52-840VnrsyeyxhScci Hospital LimaComment on above:ADA recommended reference rangeRandom Glucose Reference Range is dependent on time and content of last meal. Glucose of more than 200 mg/dL in a nonstressed, ambulatory subject supports the diagnosisof Diabetes Mellitus. Hematocrit Auto (Bld) [Volume fraction]Ordered By: Shaikh Dotty on 01-09-2023 Hematocrit (Bld) [Volume fraction]40.3 %38.8-50.0[facility] LimaHemoglobin [Mass/volume] in BloodOrdered By: Shaikh Dotty on 01-09-2023 Hemoglobin (Bld) [Mass/Vol]13.3 g/dL13.0-17.0[facility] Leukocytes [#/volume] corrected for nucleated erythrocytes in Blood by Automated counOrdered By: Shaikh Dotty on 53-85-3907PIH corrected for nucl RBC Auto (Bld) [#/Vol]5.6 10*3/uL4.1-10.5FMount Carmel Health SystemLymphocytes Auto (Bld) [#/Vol]Ordered By: Shaikh Dotty on 98-14-4362Rebxuqspmem (Bld) [#/Vol]1.1 10*3/uL1.00-4.8[facility] LimaLymphocytes/100 WBC Auto (Bld)Ordered By: Shaikh Dotty on 16-92-1168Jxkrokyzjgz/100 WBC (Bld)19.3 % .[facility] LimaMCH Auto (RBC) [Entitic mass]Ordered By: Shaikh Dotty on 58-00-2027ULL (RBC) [Entitic mass]30.0 pg27.5-35.2FMount Carmel Health SystemMCHC Auto (RBC) [Mass/Vol]Ordered By: Shaikh Dotty on 68-02-5907OZGL (RBC) [Mass/Vol]32.9 g/dL32.5-35.6FMount Carmel Health SystemMCV Auto (RBC) [Entitic vol]Ordered By: Shaikh Dotty on 25-44-4987HQK (RBC) [Entitic vol]91.2 fL83.5-101[facility] LimaMonocytes Auto (Bld) [#/Vol]Ordered By: Shaikh Dotty on 54-17-1502Ohsufysmg (Bld) [#/Vol] 0.5 10*3/uL0.0-0.8[facility] LimaMonocytes/100 WBC Auto (Bld) Ordered By: Shaikh Dotty on 69-09-9428Dcobgnljg/100 WBC (Bld)8.7 %.[facility] LimaNeutrophils Auto (Bld) [#/Vol]Ordered By: Shaikh Dotty on 67-30-2030Hstirwxouof (Bld) [#/Vol]3.8 10*3/uL1.8-7.7FMount Carmel Health SystemNeutrophils/100 WBC Auto (Bld)Ordered By: Shaikh Dotty on 45-75-0883Pmfncbzgcav/100 WBC (Bld)67.6 %.[facility]imaNo Panel InformationOrdered By: Shaikh Dotty on 73-99-8380Jegqzfmzu GFR (CKD-EPI) 38.289 mL/MinScci Hospital LimaPharmacy Creatinine Clearance (ChemN/[facility]lenbeigh HospitalNucleated erythrocytes [Presence] in Blood by Automated countOrdered By: Shaikh Dotty on 10-03-2716Ldvgikumy RBC Auto Ql (Bld)0.1 /100{WBC}0-0.5FMount Carmel Health SystemPlatelet mean volume Auto (Bld) [Entitic vol]Ordered By: Shaikh Dotty on 45-97-1392Ncjsueua mean volume (Bld) [Entitic vol]9.7 fL6.6-10.1FMount Carmel Health System Platelets Auto (Bld) [#/Vol]Ordered By: Shaikh Dotty on 14-34-6932Pqxjawtze (Bld) [#/Vol]173 10*3/uI850-373DlpjvcyiuScci Hospital LimaPotassium [Moles/volume] in Serum or PlasmaOrdered By: Shaikh Dotty on 01-09-2023 Potassium [Moles/Vol]4.9 mmol/L3.5-5.1FMount Carmel Health SystemProtein [Mass/volume] in Serum or PlasmaOrdered By: Shaikh Dotty on 48-17-2029Giwnwnc [Mass/Vol]6.9 g/dL6.4-8.9[facility] LimaRBC Auto (Bld) [#/Vol] Ordered By: Shaikh Dotty on 33-02-4429GJI (Bld) [#/Vol]4.42 10*6/uL3.90-5.60 [facility] Hospitalerum or plasma albumin/globulin mass ratio Ordered By: Shaikh Dotty on 83-07-5729Jfonckn/Globulin [Mass ratio]1.6 {ratio} [facility] Hospitalerum or plasma anion gap determinationOrdered By: Shaikh Dotty on 80-70-3210Zxyaq gap [Moles/Vol]9.8 mmol/L6.0-15.0[facility] Hospitalerum or plasma high density lipoprotein (HDL) cholesterol measurementOrdered By: Shaikh Dotty on 93-80-9083Qbxkvwxrgkw in HDL [Mass/Vol]31 mg/aB71-51VvmnzffwhScci Hospital LimaComment on above:HDL CHOL ATP-III CLASSIFICATION Cardiovascular RiskHDL > or equal to 60 mg/dL LOWHDL < 40 mg/dL HIGHSerum or plasma total cholesterol/high density lipoprotein (HDL) cholesterol mass ratOrdered By: Shaikh Dotty on 01-09-2023 Cholesterol.total/Cholesterol in HDL [Mass ratio]5.7 {ratio}<5.0[facility] Hospitalodium [Moles/volume] in Serum or PlasmaOrdered By: Shaikh Dotty on 28-30-3898Ealqvc [Moles/Vol]140 mmol/P005-424WgefaetxvScci Hospital LimaTriglyceride [Mass/volume] in Serum or PlasmaOrdered By: Shaikh Dotty on 60-03-9225Pfupadtypapq [Mass/Vol]162 mg/dL0-149[facility] LimaComment on above:TRIG ATP III CLASSIFICATIONTRIG less than 150 mg/dL NormalTRIG 150-199 mg/dL Borderline highTRIG 200-500 mg/dL High TRIG greater than 500 mg/dL Very highStandard traceable to the Center for Disease Co nrtrol and Prevention (CDC) test method.Urea nitrogen [Mass/volume] in Serum or PlasmaOrdered By: Shaikh Dotty on 10-89-5965Ktqp nitrogen [Mass/Vol]34 mg/dL 7-25S[facility] LimaWBC Auto (Bld) [#/Vol]Ordered By: Shaikh Dotty on 90-99-1889KCZ (Bld) [#/Vol]5.6 10*3/uL4.1-10.5FMount Carmel Health SystemCNPNon 86-36-4922DVUOMnkupszoo (IRRFV) YESENIA BROUSSARD ([id number]) 1945 M Date Time Provider Department 01/05/23 EVELYN CHAMBERLAINFV During your visit today, we recorded the following information about you: Evelyn Chamberlain RN 01/05/2023 5:05 PM Signed Spoke to patient's . Explained differences between anxiolysis and full anesthesia. Per patient's , patient needs full anesthesia-will not tolerate procedure with anxiolysis alone. Communicated to office that new order needs to be placed for MRI with anesthesia, and will need to be scheduled at [facility]. Allergies As of Date: 01/05/2023 (No Known Allergies) Date Reviewed: 11/19/2022 Reviewed by: Elizabeth Freire APRN.[employer]ANG[employer] CREWMEMBER - Fully Assessed Reason for Visit: Patient Question [1477] Appointment [186] Prescriptions as of 01/05/2023 - [...] 11/19/2022 Encounter Status:Closed by EVELYN CHAMBERLAIN on 01/05/23NoC[facility] HospitalCULTURE URINEon [id number] URINECulture Observations: LIGHT GROWTH OF MIXED SKIN DANIELLE. NO POTENTIAL PATHOGENS SEEN.NormalThe Martins Ferry HospitalComment on above:Performed By: #### URCX #### [facility] [address] [place] [address] Dr. Leighann Garcia Panel InformationOrdered By: Hyun Nazario on 29-73-6533Sgsdwzbi Specific Antigen Total2.810 ng/mL0.000-4.000[facility] Basophils Auto (Bld) [#/Vol]Ordered By: Zeinab Justice on 42-68-1471Aoqjsaups (Bld) [#/Vol]0.0 10*3/uL0.0-0.2FMount Carmel Health SystemBasophils/100 WBC Auto (Bld)Ordered By: Zeinab Justice on 36-31-1021Lycbmahhu/100 WBC (Bld)0.5 % .[facility] LimaBody fluid albumin measurement (mass/volume) Ordered By: Zeinab Justice on 77-97-6148Nmchkni (Body fld) [Mass/Vol]3.6 g/dL 3.2-5.5FMount Carmel Health SystemCreatinine and Glomerular filtration rate.predicted panel (S/P/Bld)Ordered By: Zeinab Justice on 85-79-8137Uvsmdmmruv [Mass/Vol]1.65 mg/dL0.64-1.27[facility] LimaEosinophils Auto (Bld) [#/Vol]Ordered By: Zeinab Justice on 27-60-3309Hpafpjmtlaf (Bld) [#/Vol]0.2 10*3/uL0.0-0.45[facility] LimaEosinophils/100 WBC Auto (Bld) Ordered By: Zeinab Justice on 17-31-5176Rsmfqgijllg/100 WBC (Bld)3.4 %.[facility] LimaErythrocyte distribution width Auto (RBC) [Ratio]Ordered By: Zeinab Justice on 31-81-1111Ukzagcqrslf distribution width (RBC) [Ratio]15.0 % 12.0-14.8[facility] LimaEstimated glomerular filtration rate (GFR) non- AmericanOrdered By: Zeinab Justice on 81-58-5517GSU/1.73 sq M.predicted among non-blacks MDRD (S/P/Bld) [Vol rate/Area]41 mL/MinScci Hospital LimaGlobulin Calc (S) [Mass/Vol]Ordered By: Zeinab Justice on 02-89-5203Diendhev (S) [Mass/Vol]2.6 g/dLScci Hospital Lima Hematocrit Auto (Bld) [Volume fraction]Ordered By: Zeinab Justice on 04-23-2022 Hematocrit (Bld) [Volume fraction]38.0 %38.8-50.0[facility] LimaHemoglobin [Mass/volume] in BloodOrdered By: Zeinab Justice on 04-23-2022 Hemoglobin (Bld) [Mass/Vol]12.3 g/dL13.0-17.0[facility] - Hematology and Cell countsOrdered By: Zeinab Justice on 04-23-2022 Nucleated RBC/100 WBC (Bld) [Ratio]0.2 %0-0.5FMount Carmel Health System Leukocytes [#/volume] in Blood by Automated countOrdered By: Zeinab Justice on 33-36-9444QKP (Bld) [#/Vol]5.3 10*3/uL4.5-11.0[facility] Lymphocytes Auto (Bld) [#/Vol]Ordered By: Zeinab Justice on 92-74-9758Aqccxjdzogw (Bld) [#/Vol]0.9 10*3/uL1.00-4.8[facility] Hospital LimaLymphocytes/100 WBC Auto (Bld)Ordered By: Zeinab Justice on 18-89-5487Duwtkuzdsbo/100 WBC (Bld) 17.1 %.[facility] Auto (RBC) [Entitic mass]Ordered By: Zeinab Justice on 27-77-1197AMN (RBC) [Entitic mass]30.6 pg27.5-35.2FMount Carmel Health SystemMCHC Auto (RBC) [Mass/Vol]Ordered By: Zeinab Justice on 88-85-8189AFUZ (RBC) [Mass/Vol]32.4 g/dL32.5-35.6FMount Carmel Health SystemMCV Auto (RBC) [Entitic vol]Ordered By: Zeinab Justice on 04-95-8477AJB (RBC) [Entitic vol]94.4 fL83.5-101[facility] LimaMonocytes Auto (Bld) [#/Vol]Ordered By: Zeinab Justice on 73-96-8523Xmkpkrkel (Bld) [#/Vol] 0.6 10*3/uL0.0-0.8[facility] LimaMonocytes/100 WBC Auto (Bld) Ordered By: Zeinab Justice on 91-89-5135Yqtvdvtyh/100 WBC (Bld)10.5 %.[facility] Hospital LimaNeutrophils Auto (Bld) [#/Vol]Ordered By: Zeinab Justice on 83-07-1462Xztmtlrjlwb (Bld) [#/Vol]3.6 10*3/uL1.8-7.7FMount Carmel Health SystemNeutrophils/100 WBC Auto (Bld)Ordered By: Zeinab Justice on 04-23-2022 Neutrophils/100 WBC (Bld)68.5 %.[facility] LimaNo Panel InformationOrdered By: Zeinab Justice on 15-80-1840Fzaibdacu GFR ()49 mL/MinScci Hospital LimaComment on above:GFR estimated reference range: According to KDOQI guidelines, <60 ml/min/1.73m2 is sufficient todiagnose a patient with chronic kidney disease.Pharmacy Creatinine Clearance (ChemN/[facility]beigh HospitalPlatelet mean volume Auto (Bld) [Entitic vol]Ordered By: Zeinab Justice on 18-14-4478Lmcxxwrw mean volume (Bld) [Entitic vol]9.7 fL6.6-10.1FMount Carmel Health SystemPlatelets Auto (Bld) [#/Vol]Ordered By: Zeinab Justice on 40-28-6139Ajljrkrtc (Bld) [#/Vol]170 10*3/bD034-897OibewgyqnScci Hospital LimaProtein [Mass/volume] in Serum or PlasmaOrdered By: Zeinab Justice on 09-33-2024Xcliweb [Mass/Vol]6.2 g/dL6.1-7.9 [facility] LimaRBC Auto (Bld) [#/Vol]Ordered By: Zeinab Justice on 12-64-2851VRF (Bld) [#/Vol]4.02 10*6/uL3.90-5.60[facility] Hospitalerum or plasma alanine aminotransferase measurement without P-5'-P (enzymatic activiOrdered By: Zeinab Justice on 99-91-1860XEL No additional P-5'-P [Catalytic activity/Vol]19 U/L78-80NufzqemgmMiami Valley Hospitalerum or plasma albumin/globulin mass ratioOrdered By: Zeinab Justice on 04-23-2022 Albumin/Globulin [Mass ratio]1.4 {ratio}[facility] Hospitalerum or plasma alkaline phosphatase measurement (enzymatic activity/volume)Ordered By: Zeinab Justice on 57-67-5118KEB [Catalytic activity/Vol]51 U/P15-55OeafmtqmdMiami Valley Hospitalerum or plasma anion gap determinationOrdered By: Zeinab Justice on 62-24-5505Nplps gap [Moles/Vol]13.2 mmol/L6.0-15.0[facility] Hospitalerum or plasma aspartate aminotransferase measurement (enzymatic activity/volume)Ordered By: Zeinab Justice on 76-95-5191HIE [Catalytic activity/Vol]18 U/Z22-50VbkbhaggvMiami Valley Hospitalerum or plasma calcium measurement (mass/volume)Ordered By: Zeinab Justice on 82-94-4626Oeltkpn [Mass/Vol]8.8 mg/dL8.2-10.2FGlenbeigh Hospitalerum or plasma chloride measurement (moles/volume)Ordered By: Zeinab Justice on 04-23-2022 Chloride [Moles/Vol]104 mmol/Z72-979TsiztiaazMiami Valley Hospitalerum or plasma glucose measurement (mass/volume)Ordered By: Zeinab Justice on 04-23-2022 Glucose [Mass/Vol]98 mg/hP08-505AppprjjodScci Hospital LimaComment on above:ADA recommended reference rangeRandom Glucose Reference Range is dependent on time and content of last meal. Glucose of more than 200 mg/dL in a nonstressed, ambulatory subject supports the diagnosisof Diabetes Mellitus.Serum or plasma potassium measurement (moles/volume)Ordered By: Zeinab Justice on 47-34-9105Asnpnbxyf [Moles/Vol]4.6 mmol/L3.5-5.1FGlenbeigh Hospitalerum or plasma sodium measurement (moles/volume)Ordered By: Zeinab Justice on 84-98-0727Cpkgyz [Moles/Vol]136 mmol/N040-948UsfejiqchMiami Valley Hospitalerum or plasma total bilirubin measurement (mass/volume)Ordered By: Zeinab Justice on 07-30-5866Ydhiykthh [Mass/Vol]0.5 mg/dL0.3-1.2FGlenbeigh Hospitalerum or plasma total carbon dioxide measurement (moles/volume) Ordered By: Zeinab Justice on 68-08-5401VN9 [Moles/Vol]23.4 mmol/L22.0-30.0 [facility] Hospitalerum or plasma urea nitrogen measurement (mass/volume)Ordered By: Zeinab Justice on 58-29-2108Lpuq nitrogen [Mass/Vol]22 mg/dL02-21Scci Hospital LimaCBC W Auto Differential panel (Bld)on 67-55-7212Lvczxxima (Bld) [#/Vol]<0.11 k/uLMemorial Health SystemBasophils/100 WBC (Bld)0.3 %[facility] SystemDifferential cell count method Nom (Bld)AutoCleveland ClinicEosinophils (Bld) [#/Vol]0.25 10*3/uL<0.46 k/uLMemorial Health System Eosinophils/100 WBC (Bld)3.2 %[facility] Health SystemErythrocyte distribution width (RBC) [Ratio]14.3 %11.5 - 15.0 %[facility] SystemHematocrit (Bld) [Volume fraction]39.3 %39.0 - 51.0 %[facility] SystemHemoglobin (Bld) [Mass/Vol]12.8 g/dL Low13.0 - 17.0 g/dLMemorial Health SystemImmature granulocytes (Bld) [#/Vol]0.03 10*3/uL<0.10 k/uLMemorial Health SystemImmature granulocytes/100 WBC (Bld)0.4 % [facility] SystemLymphocytes (Bld) [#/Vol]1.53 10*3/uL1.00 - 4.00 k/uLMemorial Health SystemLymphocytes/100 WBC (Bld)19.8 %[facility] HospitalH (RBC) [Entitic mass] 31.4 pg26.0 - 34.0 pgClevelBemidji Medical CenterHC (RBC) [Mass/Vol]32.6 g/dL30.5 - 36.0 g/dLMemorial Health SystemMCV (RBC) [Entitic vol]96.6 fL80.0 - 100.0 fLCleveland ClinicMonocytes (Bld) [#/Vol]0.67 10*3/uL<0.87 k/uLMemorial Health SystemMonocytes/100 WBC (Bld)8.7 %[facility] ClinicNeutrophils (Bld) [#/Vol]5.21 10*3/uL1.45 - 7.50 k/uLMemorial Health SystemNeutrophils/100 WBC (Bld)67.6 %[facility] SystemNucleated RBC (Bld) [#/Vol]<0.01 k/uLMemorial Health SystemNucleated RBC/100 WBC (Bld) [Ratio]0.0 /100 WBCMemorial Health SystemPlatelet mean volume (Bld) [Entitic vol]11.2 fL9.0 - 12.7 fLCleveland ClinicPlatelets (Bld) [#/Vol]183 10*3/uL150 - 400 k/uLMemorial Health SystemRBC (Bld) [#/Vol]4.07 10*6/uLLow4.20 - 6.00 m/[facility] HospitalWBC (Bld) [#/Vol]7.71 10*3/uL3.70 - 11.00 k/[facility] HospitalCHEMISTRYOrdered By: SYSTEM SYSTEM on 43-25-8836Fdxzkst [Mass/Vol]4.0 g/dLNormal3.3 - 5.0 gm/dLJIM [facility]ALIAFERR[facility] Remisol Albumin/Globulin [Mass ratio]1.2 {ratio}Normal1.1 - 2.2[facility] RemisolALP [Catalytic activity/Vol]52 [iU]/gZgvezj78 - 98 Int._Unit/LFTMC RemisolALT No additional P-5'-P [Catalytic activity/Vol]15 [iU]/dNormal6 - 46 Int._Unit/LFTMC RemisolAnion gap [Moles/Vol]10 mmol/LNormal6 - 16 mEq/LFTMC RemisolAST [Catalytic activity/Vol]17 [iU]/dNormal5 - 43 Int._Unit/LFTMC RemisolBilirubin [Mass/Vol]0.3 mg/dLNormal0.0 - 1.1 mg/dLFT RemisolCalcium [Mass/Vol]9.1 mg/dL Normal8.9 - 11.1 mg/dLFT RemisolChloride [Moles/Vol]107 mmol/HJslcpx953 - 111 mmol/LFTMC RemisolCO2 [Moles/Vol]25 mmol/DYkiuyk81 - 31 mmol/LFTMC Remisol Creatinine [Mass/Vol]1.8 mg/dLHigh0.5 - 1.3 mg/dLFT RemisolGFR/1.73 sq M.predicted among blacks MDRD (S/P/Bld) [Vol rate/Area]45 mL/min/1.73 m2Low >=59mL/min/1.73 m2[facility] Chem SGFR/1.73 sq M.predicted among non-blacks MDRD (S/P/Bld) [Vol rate/Area]37 mL/min/1.73 m2Low>=59mL/min/1.73 m2[facility] Chem S Globulin (S) [Mass/Vol]3.3 g/dLNormal1.4 - 4.0 gm/dLFT RemisolGlucose [Mass/Vol]95 mg/bCLtlbhb28 - 199 mg/dLFTMC RemisolPotassium [Moles/Vol]4.5 mmol/LNormal3.5 - 5.3 mmol/LFTMC RemisolProtein [Mass/Vol]7.3 g/dLNormal6.0 - 7.8 gm/dLFT RemisolSodium [Moles/Vol]137 mmol/CQejikn404 - 145 mmol/LFTMC RemisolUrea nitrogen [Mass/Vol]27 mg/dLHigh5 - 21 mg/dLFTMC RemisolUrea nitrogen/Creatinine [Mass ratio]15 mg/bhRkjhra88 - 20[facility] RemisolHEMATOLOGY Ordered By: SYSTEM SYSTEM on 79-09-6224Hieguufgp/100 WBC (Bld)0.9 %Normal0.0 - 2.0 %[facility] HemeAutoSSBasophils/Leukocytes Auto (Bld) [Pure # fraction]0.1 E9/L Normal0.0 - 0.2 E9/LFTMC HemeAutoSSEosinophils/100 WBC (Bld)2.9 %Normal0.0 - 8.0 %[facility] HemeAutoSSEosinophils/Leukocytes Auto (Bld) [Pure # fraction]0.2 E9/L Normal0.0 - 0.5 E9/LFTMC HemeAutoSSLymphocytes/100 WBC (Bld)23.0 %Sxbrkm96.0 - 50.0 %[facility] HemeAutoSSLymphocytes/Leukocytes Auto (Bld) [Pure # fraction]1.6 E9/L Normal1.0 - 4.0 E9/LFTMC HemeAutoSSMonocytes/100 WBC (Bld)9.4 %Normal4.0 - 14.0 %[facility] HemeAutoSSMonocytes/Leukocytes Auto (Bld) [Pure # fraction]0.6 E9/LNormal 0.2 - 1.0 E9/LFTMC HemeAutoSSNeutrophils/100 WBC (Bld)63.8 %Gmlbdc43.0 - 75.0 % [facility] HemeAutoSSNeutrophils/Leukocytes Auto (Bld) [Pure # fraction]4.4 E9/LNormal 2.0 - 7.5 E9/LFTMC HemeAutoSSHEMATOLOGYOrdered By: Tyshawn Winchester on 15-27-6609Jxtxdlhjmus distribution width (RBC) [Ratio]15.0 %High10.9 - 14.2 % [facility] HemeAutoSSHematocrit (Bld) [Volume fraction]40.2 %Xrzcfo99.7 - 49.0 %[facility] HemeAutoSSHemoglobin (Bld) [Mass/Vol]13.2 g/dLLow13.5 - 17.5 gm/dLFTMC HemeAutoSSMCH (RBC) [Entitic mass]30.2 xlDofyzr63.0 - 34.0 pgFTMC HemeAutoSSMCHC (RBC) [Mass/Vol]32.9 g/jXGolcjc22.4 - 36.0 gm/dLFTMC HemeAutoSSMCV (RBC) [Entitic vol]91.6 lKAvftlo01.0 - 100.0 fLFTMC HemeAutoSSPlatelet mean volume (Bld) [Entitic vol]9.8 fLNormal6.4 - 10.8 fLFTMC HemeAutoSSPlatelets (Bld) [#/Vol]197.0 E9/SDbfziu824.0 - 500.0 E9/LFTMC HemeAutoSSRBC (Bld) [#/Vol]4.4 E12/LNormal4.3 - 5.9 E12/LFTMC HemeAutoSSWBC corrected for nucl RBC Auto (Bld) [#/Vol]6.9 E9/LNormal4.0 - 11.0 E9/LFTMC HemeAutoSSCovid-19 PCR (CVDTBH)on 35-40-8688ILHJ-CoV-2 (COVID-19) RNA WENCESLAO+probe Ql (Unsp spec)Not detectedNormal NOT DETECTEDThe [facility] on above:Result Comment: This test is not yet approved or cleared by the [place] FDA. When there are no FDA- approved or cleared tests available, and other criteria are met, FDA can make tests available under an emergency access mechanism called an Emergency Use Authorization (EUA). The EUA for this test is supported by the [place] of Health and Human Service's (HHS's) declaration [...] of clinical signs and symptoms consistent with SARS-CoV-2.Performed By: #### CVDTBH #### [facility] [address] [place] [address] Dr. Leighann SantanaPTH INTACTon 48-13-8015VVO, Kvknzk26 pg/gOZlrvdl03-46Pwf [facility] on above:Performed By: #### PTHINT #### [facility] [address] [place], [place] [id number] Dr. Leighann Celeste 25-[place] LABCORPon 42-77-5180Bqbuxns D, 25-Brimwjw82.2 ng/mL Critically low30.0-100.0The [facility] HospitalComment on above:Result Comment: Vitamin D deficiency has been defined by the [place] and an Endocrine Society practice guideline as a level of serum 25-OH vitamin D less than 20 ng/mL (1,2). The Endocrine Society went on to further define vitamin D insufficiency as a level between 21 and 29 ng/mL (2). 1. IOM ([place]). 2010. Dietary reference intakes for calcium and D. [place]: The National Academies Press. 2. Grecia MF, Wayne PALMER, John VILLEGAS, et al. Evaluation, treatment, and prevention of vitamin D deficiency: an Endocrine Society clinical practice guideline. JCEM. 2010; 96(7):1911-30.Performed By: #### VITADLC #### [facility] [address] [place], [place] [address] Dr. Leighann SantanaHEMOGRAM AND PLATELon 62-72-9351Ylqbqdtlww (Bld) [Volume fraction]39.3 %Critically low42.0-54.0The [facility] HospitalComment on above: Performed By: #### HH ####[facility] [address] [place] [id number] SantanaHemoglobin (Bld) [Mass/Vol]12.5 g/dL Critically low14.0-18.0The [facility] HospitalComment on above:Performed By: #### HH ####[facility] [address] [place], [place] [address]JxDr. Leighann SaucedaH (RBC) [Entitic mass]30.2 lqBabtuz62.9-34.0The [facility] Comment on above:Performed By: #### HH ####[facility] [address] [place], [place] [address]SqSusan SantanaMCHC (RBC) [Mass/Vol]31.8 g/dL Ymrvjv74.9-35.2The [facility] HospitalComment on above:Performed By: #### HH ####[facility] [address] [place] [id number] SantanaMCV (RBC) [Entitic vol]94.9 fLCritically high80.0-94.0The [facility] HospitalComment on above:Performed By: #### HH ####[facility] [address] [place] [address]Dr. Leighann AyiryXWK616 103/ul Aaennx722-788Nvh [facility] HospitalComment on above:Performed By: #### HH ####[facility] Cs[address] [place], [place] [address]Dr. Y ronnell SantanaRBC4.14 106/ulCritically low4.70-6.10The [facility] HospitalComment on above:Performed By: #### HH ####[facility] C[address]ou[address] [place], [place] [address]Dr. Leighann ChangWBC7.3 103/ulNormal4.0-11.0The [facility] HospitalComment on above:Performed By: #### HH ####[facility] U[address] [place], [place] [address]Dr. Ghadalan ChangMAGNESIUMon 96-67-0701Xgpjovaom [Mass/Vol]1.9 mg/dLNormal1.8-2.4The [facility] HospitalComment on above:Performed By: #### RENAL, MG, URIC ####[facility] [address] [place], [place] [address]Dr. Ghadalan ChangRENAL FUNCTION PANELon 04-58-1223Oweejpl [Mass/Vol]3.4 g/dLNormal3.4-5.0The [facility] Comment on above:Performed By: #### RENAL, MG, URIC ####[facility] [address] [place], [place] [address]Dr. Ghadalan ChangCalcium [Mass/Vol]8.7 mg/dLNormal8.5-10.1The [facility] HospitalComment on above:Performed By: #### RENAL, MG, URIC ####[facility] Giwe[address] [place], [place] [address]Dr. Yilan ChangChloride [Moles/Vol]105 mmol/LNormal 98-107The [facility] HospitalComment on above:Performed By: #### RENAL, MG, URIC ####[facility] [address] [place] [address]Dr. Yilan ChangCO2 [Moles/Vol]26.5 mmol/ZWruyes55.0-32.0The [facility] HospitalComment on above:Performed By: #### RENAL, MG, URIC ####[facility] [address] [place] [address]Dr. Yilan ChangCreatinine [Mass/Vol]1.77 mg/dLCritically high0.70-1.30The [facility] HospitalComment on above:Performed By: #### RENAL, MG, URIC ####[facility] [address] [place] [address]Dr. Yilan ChangEGFR-AF ZWOAGBFQ22 mL/min/1.10x8Frmgrqtfsd low>=60The [facility] HospitalComment on above:Performed By: #### RENAL, MG, URIC ####[facility] [address] [place], [place] [address]Dr. Yilan ChangEGFR-NON AF QUNIKVMZ69 mL/min/1.73m2 Critically low>=60The [facility] HospitalComment on above:Performed By: #### RENAL, MG, URIC ####[facility] [address] [place], [place] [address]Dr. Yilan ChangGlucose [Mass/Vol]136 mg/dLCritically ffde13-095Mnx [facility] HospitalComment on above:Performed By: #### RENAL, MG, URIC ####[facility] [address] [place] [address]Dr. Yilan ChangPhosphate [Mass/Vol]3.6 mg/dLNormal2.6-4.7The [facility] Comment on above:Performed By: #### RENAL, MG, URIC ####[facility] [address] [place], [place] [address]Dr. Yilan ChangPotassium [Moles/Vol]4.5 mmol/LNormal3.5-5.1The [facility] HospitalComment on above: Performed By: #### RENAL, MG, URIC ####[facility] [address] [place], [place] [address]Dr. Yilan ChangSodium [Moles/Vol]140 mmol/LNormal 136-145The [facility] HospitalComment on above:Performed By: #### RENAL, MG, URIC ####[facility] [address] [place] [address]DrSusan SantanaUrea nitrogen [Mass/Vol]25.0 mg/dLCritically high7.0-18.0The [facility] HospitalComment on above:Performed By: #### RENAL, MG, URIC ####[facility] [address] [place] [address]DrSusan SantanaUA RANDOM W/MICROSCOPICon 00-56-6193HWIVKBFTQEUSWBtrhpbynLLRI SEENProtestant Deaconess HospitalComment on above:Performed By: #### UAMIC #### [facility] [address] [place] [address] [address] Leighann Francisco Ql (U)NegativeNormalNEGATIVEThe [facility] Comment on above:Performed By: #### UAMIC #### [facility] [address] [place] [address] [address] Leighann SantanaCASTNONE SEENNormalNONE SEENProtestant Deaconess HospitalComment on above:Performed By: #### UAMIC #### [facility] [address] [place] [address] [address] Leighann Faria (U)CLEARNormalCLEARThe [facility] HospitalComment on above: Performed By: #### UAMIC #### [facility] [address] [place] [address] [address] Leighann Meza (U)LT. YELLOWNormalYELLOWProtestant Deaconess HospitalComment on above:Performed By: #### UAMIC #### [facility] [address] [place] [address] [address] Leighann Motleyystals LM Nom (Urine sed)NONE SEENNormalNONE SEENProtestant Deaconess HospitalComment on above:Performed By: #### UAMIC #### [facility] [address] [place] [address] [address] Lawton ChangEpithelial cells LM Ql (Urine sed)FEWAbnormalNONE SEEN /RAREThe [facility] HospitalComment on above:Performed By: #### UAMIC #### [facility] [address] [place] [address] [address] Leighann SantanaGlucose Ql (U)NegativeNormalNEGATIVEProtestant Deaconess HospitalComment on above:Performed By: #### UAMIC #### [facility] [address] [place] [address] [address] Leighann SantanaHemoglobin Ql (U)TRACE-INTACTAbnormalNEGATIVECenterville HospitalComment on above:Performed By: #### UAMIC #### [facility] [address] [place] [address] [address] Leighann SantanaKetones Ql (U)NegativeNormalNEGATIVEProtestant Deaconess HospitalComment on above:Performed By: #### UAMIC #### [facility] [address] [place] [address] Dr. Leighann SantanaLEUKOCYTESMODERATEAbnormalNEGATIVEProtestant Deaconess HospitalComment on above:Performed By: #### UAMIC #### [facility] [address] [place] [address] [address] Leighann SantanaMUCOUSNONE SEENNormalNONE SEENProtestant Deaconess HospitalComment on above:Performed By: #### UAMIC #### [facility] [address] [place] [address] [address] Leighann SantanaNitrite Ql (U)PositiveAbnormalNEGATIVEPeoples Hospital on above:Performed By: #### UAMIC #### [facility] [address] [place] [address] [address] Leighann SantanapH (U)5.5 [pH]Normal5-9Pro[facility] Deaconess HospitalComment on above: Performed By: #### UAMIC #### [facility] [address] [place] [address] [address] Leighann SantanaGmeuzAEY4-9Junlkvht8-6Qsa [facility] HospitalComment on above:Performed By: #### UAMIC #### [facility] [address] [place] [address] Dr. Leighann SantanaSPEC GRAVITY>=1.087Kmnxesen0.005-<=1.025The [facility] Comment on above:Performed By: #### UAMIC #### [facility] [address] [place] [address] Dr. Leighann Enciso NKZOYEB00 mg/dlAbnormalNEGATIVE/ TRACEThe [facility] Comment on above:Performed By: #### UAMIC #### [facility] [address] [place] [address] Dr. Leighann Mallorybilinogen Qn (U)0.2 {Jing'U}/dLNormal0.2 - 1.0The [facility] HospitalComment on above:Performed By: #### UAMIC #### [facility] [address] [place] [address] Dr. Leighann SantanaSpwhzTVA91-57IfmfwujqLOVZ SEENThe [facility] HospitalComment on above: Performed By: #### UAMIC #### [facility] [address] [place] [address] Dr. Leighann Robin ACID SERUMon 03-80-8157Mlvwx [Mass/Vol]6.5 mg/dLNormal 3.5-7.2The [facility] HospitalComment on above:Performed By: #### RENAL, MG, URIC ####[facility] [address] [place] [address]Dr. Leighann Troy T PROTEIN CREAT RATIOon 34-89-0153Kjqzlby (U) [Mass/Vol]73.2 mg/dLCritically high<=12.0The [facility] HospitalComment on above:Performed By: #### URTPCR #### [facility] [address] [place] [address] Dr. Leighann Guzman PROT CREAT RAT0.42NormalThe [facility] HospitalComment on above: Performed By: #### URTPCR #### [facility] [address] [place] [address] Dr. Leighann Troy VKFLE074.21 mg/zVIvvbhz96.00-300.00The [facility] Comment on above:Performed By: #### URTPCR #### [facility] [address] [place], [place] [address] Dr. Leighann SantanaSURGICAL PATH REPORTon 27-09-1011KFTDOLAX PATH REPORTSLakeHealth TriPoint [facility] Department of Pathology [address] [place] [id number] Name: YESENIA BROUSSARD : 1945 [employer] [id number] Number: Gender: Male Location: [facility] Admit 75 years Attending BARBARA JOHNSTON Age: Provider: Ordering BARBARA JOHNSTON Provider: Consulting: Surgical Pathology Report ACCESSION: COLLECTED DATE/TIME: RECEIVED DATE/TIME: PATHOLOGIST: [id number] 06/06/2021 16:30 EST 06/07/2021 11:15 EST [facility] Final Diagnosis Report for THE [place] PROSTATE TISSUE; TURP: - PROSTATIC ACINAR ADENOCARCINOMA, 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 COMMENT: Intradepartmental consultation was obtained with diagnostic concurrence. CANCER CASE SUMMARY SPECIMEN Procedure Transurethral resection of the prostate (TURP) TUMOR Histologic Type Acinar adenocarcinoma Histologic Grade Grade Grade group 2 ([place] Score 3 + 4 = 7) Percentage of Pattern 4 6 - 10% Intraductal Carcinoma (IDC) Not identified Cribriform Glands Not identified Print Date/ 06/11/2021 16:16 EST Number: Time: [facility] Department of Pathology [address] [place] [id number] Name: YESENIA BROUSSARD : 1945 [employer] [id number] Number: Gender: Male Location: [facility] Admit 75 years Attending BARBARA JOHNSTON Age: Provider: Ordering BARBARA JOHNSTON Provider: Consulting: Surgical Pathology Report ACCESSION: COLLECTED DATE/TIME: RECEIVED DATE/TIME: PATHOLOGIST: [id number] 06/06/2021 16:30 EST 06/07/2021 11:15 EST KATYA [...] Print Date/ 06/11/2021 16:16 EST Number: Time: [facility] Department of Pathology [address] [place], [place] [id number] Name: YESENIA BROUSSARD : 1945 [facility] [id number] Number: Gender: Male Location: [facility] Admit 75 years Attending BARBARA JOHNSTON Age: Provider: Ordering BARBARA JOHNSTON Provider: Consulting: Surgical Pathology Report ACCESSION: COLLECTED DATE/TIME: RECEIVED DATE/TIME: PATHOLOGIST: [id number] 06/06/2021 16:30 EST 06/07/2021 11:15 EST KATYA [...] MP/ww 06/07/2021 Tissue pathology report for: [facility], [address] [place] [address], [place] [address]; PATHOLOGY SERVICES PROVIDED BY [employer] (CLIA #[id number]) in cooperation with [facility] at [address] [place] [address] (CLIA #[id number]) Codes CPT CODE: 85451 Print Date06/11/2021 16:16 EST Number: Time: [facility] HospitalComment on above:Performed By: #### [id number] #### [facility] Services [address] [place], [place] [id number] Can Stacker: Gigi Peters MD Vital Signs Date TimeVital SignValuePerforming PjbcjsowxDtynmiei02-35-5981 11:02040Body vzoulk568.8 cmBrian Avalos MD Work Phone: [facility]10-14-2025 11:02-0400 Body mass index (BMI) [Ratio]28.3 kg/m2Brian Avalos MD Work Phone: [phone] [place], [place] [address]10-14-2025 11:02-040 Body nqmela70.35 kgBrian Avalos MD Work Phone: [facility]10-14-2025 11:02-0400 Diastolic blood mm[Hg]Brian Avalos MD Work Phone: [facility]10-14-2025 11:02-0400 Heart rate71 /minBrian Avalos MD Work Phone: [phone])[address]10-14-2025 11:02-0400 Respiratory rate20 /minBrian Avalos MD Work Phone: [phone])43527 [address]10-14-2025 11:02-0400 SaO2% (BldA) [Mass fraction]97 %Brian Avalos MD Work Phone: [phone])44627 [address]10-14-2025 11:02-0400 Systolic blood jtminckj798 mm[Hg]Brian Avalos MD Work Phone: [phone] [place], [place] [address]9-22-2025 11:37-0400 Body mejbsd976.8 cmBrian Avalos MD Work Phone: [phone] [place], [place] [address]109-22-2025 11:37-0400 Body mass index (BMI) [Ratio]28.1 kg/m2Brian Avalos MD Work Phone: [phone])[address] [place], [place] [address]-22-2025 11:37-0400 Body vslbef83.01 kgBrian Avalos MD Work Phone: [phone] [place], [place] [address]9-22-2025 11:37-0400 Diastolic blood vbyzhlmw06 mm[Hg]Brian Avalos MD Work Phone: [phone])22927 [address]09-22-2025 11:37-0400 Heart rate75 /Naty Avalos MD Work Phone: [phone])[address] [place], [place] [address]9-22-2025 11:37-0400 Respiratory rate18 /minBrian Avalos MD Work Phone: [phone])70927 [address]09-22-2025 11:37-0400 SaO2% (BldA) [Mass fraction]97 %Brian Avalos MD Work Phone: [phone])[address]09-22-2025 11:37-0400 Systolic blood ousediwn634 mm[Hg]Brian Avalos MD Work Phone: [facility]08-20-2025 09:27-0400 Body kkwlix796.8 cmSRAVANTHI Nazario MD Work Phone: [facility]08-20-2025 09:27-0400Body mass index (BMI) [Ratio]27.99 kg/m2SRAVANTHI Nazario MD Work Phone: [facility]08-20-2025 09:27-0400Body temperature 98.6 [degF]SRAVANTHI Nazario MD Work Phone: [facility]08-20-2025 09:27-0400Body .5 kgSRAVANTHI Nazario MD Work Phone: [facility]08-20-2025 09:27-0400Diastolic blood mlecrlkt82 mm[Hg]SRAVANTHI Nazario MD Work Phone: [facility]08-20-2025 09:27-0400Heart rate92 /min SRAVANTHI Nazario MD Work Phone: [facility]08-20-2025 09:27-0400Respiratory rate 16 /AmberSRAVANTHI Nazario MD Work Phone: [facility]08-20-2025 09:27-2241TsG8% (BldA) [Mass fraction]96 %SRAVANTHI Nazario MD Work Phone: [facility]08-20-2025 09:27-0400Systolic blood mm[Hg]SRAVANTHI Nazario MD Work Phone: [facility]04-01-2025 11:30-0400Diastolic blood mm[Hg]Jose Hector APRN-SOUND RANGING CREWMEMBER Work Phone: [facility]04-01-2025 11:30-0400 Systolic blood dkwqkoui224 mm[Hg]Jose Hector APRN-SOUND RANGING CREWMEMBER Work Phone: [facility]04-01-2025 11:16-0400 Body wvfyeq182.8 cmDonna Hector PARTS SPECIALIST-SOUND RANGING CREWMEMBER Work Phone: [facility]04-01-2025 11:16-0400 Body mass index (BMI) [Ratio]28.55 kg/n6VhlgqJose Hector PARTS SPECIALIST-[employer] RANGING [employer]WMEMBER Work Phone: [facility]04-01-2025 11:16-0400 Body enzasz44.27 kgJose Hector PARTS SPECIALIST-[employer]ANGING [employer]WMEMBER Work Phone: [facility]04-01-2025 11:16-0400 Heart rate84 /minDconsuelo Hector PARTS SPECIALIST-S[employer] RANGING CREWMEMBER Work Phone: [facility]03-17-2025 10:39-0400 Body lculqg034.8 cmBrian Avalos MD Work Phone: [phone])[address]27 [address]03-17-2025 10:39-0400 Body mass index (BMI) [Ratio]28.4 kg/m2Brian Avalos MD Work Phone: [phone] [address]03-17-2025 10:39-0400 Body jnjuxkhcmok03.8 [degF]Brian Avalos MD Work Phone: [phone]03-17-2025 10:39-0400 Body .92 kgBrian Avalos MD Work Phone: [phone])[address]03-17-2025 10:39-0400 Diastolic blood gtdqjmzu54 mm[Hg]Brian Avalos MD Work Phone: [phone])411-[address] [place], [place] [address]273103-17-2025 10:39-0400 Heart rate85 /minBrian Avalos MD Work Phone: [phone] [place], [place] 2273103-17-2025 10:39-0400 Respiratory rate16 /minBrian Avalos MD Work Phone: [phone] [place], [place] 2273103-17-2025 10:39-0400 SaO2% (BldA) [Mass fraction]98 %Brian Avalos MD Work Phone: [phone] [place], [place] [address]3-17-2025 10:39-0400 Systolic blood mm[Hg]Brian Avalos MD Work Phone: [phone])[address]02-13-2025 11:14-0500 Body kwoysj036.8 cmBrian Avalos MD Work Phone: [phone])[address] [place], [place] [address]102-13-2025 11:14-0500 Body aaveoqysfjr30 [degF]Brian Avalos MD Work Phone: 1([phone])[address] [place], [place] 4101102-13-2025 11:14-0500 Body byttmc14 kgBrian Avalos MD Work Phone: [phone] [place], [place] 4101102-13-2025 11:14-0500 Diastolic blood ybjzytif02 mm[Hg]Brian Avalos MD Work Phone: 1(861)[address] [place], [place] 4101102-13-2025 11:14-0500 Heart flws987 /minBrian Avalos MD Work Phone: 1(049)[address]02-13-2025 11:14-0500 Respiratory rate18 /minBrian Avalos MD Work Phone: 1(613)[address]02-13-2025 11:14-0500 SaO2% (BldA) [Mass fraction]96 %Brian Avalos MD Work Phone: 1(793)[address]02-13-2025 11:14-0500 Systolic blood mm[Hg]Brian Avalos MD Work Phone: [phone])[address]02-12-2025 13:16-0500 Body .8 cmNasir Ward FINANCIAL LEGAL ASSISTANT Work Phone: [phone] [place], [place] [id number] 13:16-0500Body mass index (BMI) [Ratio]28.84 kg/a6VlnusiffNasir Lopeztrick FINANCIAL LEGAL ASSISTANT [facility] Phone[id number] 13:16-0500Body temperature 97.7 [degF]Nasir Ward FINANCIAL LEGAL ASSISTANT Work Phone: [facility] [id number] 13:16-0500Body ptijal58.17 kgBrtariq Ward FINANCIAL LEGAL ASSISTANT Work Phone: [facility] [id number] 13:16-0500Diastolic blood uhwdfrwl45 mm[Hg]Nasir Ward FINANCIAL LEGAL ASSISTANT Work Phone: [facility] CenterUlhdigfmdr44-81-0670 13:16-0500Heart rate94 /min Nasir Ward FINANCIAL LEGAL ASSISTANT Work Phone: [facility] CenterPhvakmlujb43-92-9170 13:16-0500Respiratory rate16 /minBrittjustin Ward FINANCIAL LEGAL ASSISTANT Work Phone: [facility] CenterQkgatddkwz53-93-3693 13:16-2103RpM5% (BldA) [Mass fraction]94 %Nasir Ward FINANCIAL LEGAL ASSISTANT Work Phone: [facility] CenterZdylatjnfx51-51-7243 13:16-0500Systolic blood tcyxiawg707 mm[Hg]Nasir Ward FINANCIAL LEGAL ASSISTANT Work Phone: [facility] CenterCgptrizgmt13-53-2263 11:12-0500Body rdoplq239.8 cmNasir Ward FINANCIAL LEGAL ASSISTANT Work Phone: [facility] CenterOeuiqlixfq68-90-1837 11:12-0500Body mass index (BMI) [Ratio]27.86 kg/y5Neiaxmow Ward FINANCIAL LEGAL ASSISTANT Work Phone: [facility] CenterVxusdocluc62-51-1172 11:12-0500Body temperature 96.3 [degF]Nasir Ward FINANCIAL LEGAL ASSISTANT Work Phone: [facility] CenterEidhsqendr47-21-1065 11:12-0500Body onxnpd40.09 kgBrittany Ward FINANCIAL LEGAL ASSISTANT Work Phone: [facility] CenterPzlhkhfvwq96-68-5903 11:12-0500Diastolic blood mm[Hg]Nasir Ward FINANCIAL LEGAL ASSISTANT Work Phone: [facility] CenterHreogabczp90-00-1666 11:12-0500Heart rate93 /min Nasir Gascapatrick FINANCIAL LEGAL ASSISTANT Work Phone: [facility] CenterKcrkyanmfz39-25-2077 11:12-0500Respiratory rate16 /minDanieltariq Gascapatrick FINANCIAL LEGAL ASSISTANT Work Phone: [facility] CenterXautcdxqgj95-07-1486 11:12-9722PlM9% (BldA) [Mass fraction]93 %Nasir Gascapatrick FINANCIAL LEGAL ASSISTANT Work Phone: [facility] CenterEpvdtwlrew49-58-1015 11:12-0500Systolic blood vwjuggoy325 mm[Hg]Nasir Gascapatrick FINANCIAL LEGAL ASSISTANT Work Phone: [facility] CenterUyduimcorz88-56-8568 11:31-0500Blood Pressure LocationPabeckak JOHNSTON [facility]11-18-2024 11:31-0500Body eaowddkrsvh21.6 [degF]Barbaraterry JOHNSTON [facility]11-18-2024 11:31-0500Diastolic blood mm[Hg]Barbara JOHNSTON [facility]11-18-2024 11:31-0500Heart rate95 /minMehrdadtrick JOHNSTON [facility]11-18-2024 11:31-0500Respiratory rate16 /minPatrick JOHNSTON [facility]11-18-2024 11:31-0500Systolic blood nvomnxbd925 mm[Hg]Barbara JOHNSTON [facility]09-30-2024 08:28-0400Body mggecu225.8 cmPHYSICIAN [facility]09-30-20[facility] 08:28-0400Body mass index (BMI) [Ratio]27.4 kg/a4YCGXAHLWE [facility]09-30-2024 08:28-0400 Body ierekqfmrls34.8 [degF]PHYSICIAN [facility] 02-29-2024 08:28-0400Body .86 kgPHYSICIAN [facility]09-30-2024 08:28-0400Diastolic blood yklqzxcr57 mm[Hg]PHYSICIAN [facility]09-30-2024 08:28-0400Heart rate98 /min PHYSICIAN [facility]09-30-2024 08:28-0400 Respiratory rate16 /minPHYSICIAN [facility] 02-29-2024 08:28-6008JdB7% (BldA) [Mass fraction]99 %PHYSICIAN [facility]09-30-2024 08:280400Systolic blood mm[Hg]PHYSICIAN [facility]08-21-2024 17:46-0400 Body yieatp927.8 cmNasir Carterzpatrick FINANCIAL LEGAL ASSISTANT Work Phone: [facility] CenterJlxmmorjfn39-89-6856 17:46-0400Body mass index (BMI) [Ratio]27.55 kg/h1Obrfvlzw Ward FINANCIAL LEGAL ASSISTANT Work Phone: [facility] CenterLrjwcjniph46-41-8403 17:46-0400Body temperature 98.49 [degF]Nasir Ward FINANCIAL LEGAL ASSISTANT Work Phone: [facility] CenterPnypzjwxjq29-32-1883 17:46-0400Body qxzfbe20.09 kgBrtariq Ward FINANCIAL LEGAL ASSISTANT Work Phone: [facility] CenterInjyqfquwi15-50-4167 17:46-0400Diastolic blood ylngquuq35 mm[Hg]Nasir Ward FINANCIAL LEGAL ASSISTANT Work Phone: [facility] CenterXirznnfqgx49-69-3677 17:46-0400Heart rate76 /min Nasir Gascapatrick FINANCIAL LEGAL ASSISTANT Work Phone: [facility] HealthcareComment on above:97% [id number] 17:46-0400Systolic blood xkvwekto877 mm[Hg]Nasir Ward FINANCIAL LEGAL ASSISTANT Work Phone: [facility] HospitalWqcaeuqkib24-10-0988 14:33-0400Body mass index (BMI) [Ratio]27.49 kg/m2SRAVANTHI Nazario MD Work Phone: [facility]07-16-2024 14:33-0400Body temperature 97.81 [degF]SRAVANTHI Nazario MD Work Phone: [facility]07-16-2024 14:33-0400Body ejdoao03.9 kgSRAVANTHI Nazario MD Work Phone: [facility]07-16-2024 14:33-0400Diastolic blood aqowoqzp74 mm[Hg]SRAVANTHI Nazario MD Work Phone: [facility]07-16-2024 14:33-0400Heart rate86 /min SRAVANTHI Nazario MD Work Phone: [facility]07-16-2024 14:33-0400Respiratory rate 16 /AmberSRAVANTHI Nazario MD Work Phone: [facility]07-16-2024 14:33-8391LaJ4% (BldA) [Mass fraction]98 %SRAVANTHI Nazario MD Work Phone: [facility]07-16-2024 14:33-0400Systolic blood gmkqdoin284 mm[Hg]SRAVANTHI Nazario MD Work Phone: [facility]05-16-2024 09:17-0400Body .8 cmMD Shaikh Storm Work Phone: [facility]05-16-2024 09:17-0400 Body mass index (BMI) [Ratio]28.1 kg/m2MD Shaikh Storm Work Phone: [facility]05-16-2024 09:17-0400 Body tubdtzsayia90.8 [degF]MD Shaikh Storm Work Phone: 1(487)907-[address] [place], [place] 2273105-16-2024 09:17-0400 Body ycnnyt95 kg Shaikh Dotty Work Phone: 1(994)389-[address] [place], [place] 2273105-16-2024 09:17-0400 Diastolic blood mm[Hg]MD Shaikh Storm Work Phone: 1(759)233-[address] [place], [place] 2273105-16-2024 09:17-0400 Heart rate67 /minMD Shaikh Storm Work Phone: 1(376)733-[address] [place], [place] 2273105-16-2024 09:17-0400 Respiratory rate16 /minMD Shaikh Storm Work Phone: 1(947)579-[address] [place], [place] 2273105-16-2024 09:17-0400 SaO2% (BldA) [Mass fraction]94 %MD Shaikh Storm Work Phone: [facility]05-16-2024 09:17-0400 Systolic blood lhxemcfm626 mm[Hg]MD Shaikh Storm Work Phone: 1(956)241-[facility]04-19-2024 10:50-0400 Blood Pressure LocationPatricbaldemar JOHNSTON [facility]04-19-2024 10:50-0400Diastolic blood hahjktwg56 mm[Hg]Barbara JOHNSTON [facility]04-19-2024 10:50-0400Heart rate76 /minPatrick JOHNSTON [facility]04-19-2024 10:50-0400Respiratory rate16 /minPatrick JOHNSTON [facility]04-19-2024 10:50-0400Systolic blood fcgzuemn225 mm[Hg]Barbara JOHNSTON [facility]03-19-2024 12:12-0400Diastolic blood tcfkqqxe44 mm[Hg]Chaim Grayson DO Work Phone: [facility]03-19-2024 12:12-0400 Systolic blood zbpgwtdy813 mm[Hg]Chaim Austindon Work Phone: 9(685)057-[address] [place], [place] 3007603-19-2024 11:52-0400 Body uujjeh063.8 cmPratimajamila Grayson DO Work Phone: [address] [place], [place] 9586403-19-2024 11:52-0400 Body mass index (BMI) [Ratio]28.12 kg/j2Ijghvnxmarkie Grayson DO Work Phone: 9(127)005-[address] [place], [place] 3007603-19-2024 11:52-0400 Body zmquol48.91 kgChaim Grayson DO Work Phone: 0(938)106-[address] [place], [place] 3007603-19-2024 11:52-0400 Heart rate80 /minWijamila Grayson DO Work Phone: [facility]01-18-2024 13:11-0500 Diastolic blood bhxodidq08 mm[Hg]Tram [address] [place] [address] 06-18-2023 13:11-0500Heart rate86 /minEly [address] [place] [address] 06-18-2023 13:11-0500Systolic blood feunolic479 mm[Hg]Tram [address] [place], [place] 3001901-12-2024 11:11-0500Body .8 cmKodi Reynolds MD Work Phone: [facility]01-12-2024 11:11-0500Body hzwkoj60.91 kgKodi Reynolds MD Work Phone: [facility]01-04-2024 10:19-0500Diastolic blood mm[Hg]Chaim Grayson DO Work Phone: [facility]01-04-2024 10:19-0500 Systolic blood mm[Hg]Chaim Grayson DO Work Phone: [phone]01-04-2024 10:18-0500 Body ujnphh955.8 cmChaim Grayson DO Work Phone: [phone]01-04-2024 10:18-0500 Body mass index (BMI) [Ratio]28.41 kg/v6AtiawfkChaim Grayson DO Work Phone: [facility]01-04-2024 10:18-0500 Body bygdap84.81 kgWijamila Grayson DO Work Phone: [facility]01-04-2024 10:18-0500 Heart rate83 /minChaim Grayson DO Work Phone: [facility]11-21-2023 09:05-0500 Diastolic blood scksepkq44 mm[Hg]CLAIRE BRITNI [facility]11-21-2023 09:05-0500Heart rate76 /minJENNIFER BRITNI [facility]11-21-2023 09:05-0500Mean blood mm[Hg]CLAIRE BRITNI [facility]11-21-2023 09:05-0500Systolic blood vftjifok262 mm[Hg]CLAIRE BRITNI [facility]11-21-2023 08:20-0500Blood Pressure LocationJENNIFER BRITNI [facility]11-21-2023 08:20-0500Diastolic blood ehdgkohg59 mm[Hg]CLAIRE JAMES [facility]11-21-2023 08:20-0500Heart rate79 /minJENNIFER BRITNI [facility]11-21-2023 08:20-0500Respiratory rate16 /minJENNIFER BRITNI [facility]11-21-2023 08:20-0500Systolic blood owrgkntb168 mm[Hg]CLAIRE JAMES [facility]11-16-2023 11:30-0500Body exessj701.8 cmMattblanquita Mchugh Other [employer] Other [phone] 11:30-0500Body mass index (BMI) [Ratio] 28.26 kg/u1NzoamavJose Martin Mchugh Other [employer] Other 11-16-2023 11:30-0500Body .8 [degF] Jose Martin Mchugh Other [employer] Other 11-16-2023 11:30-0500Body .36 kgMattblanquita Mchugh Other [facility] Other 11-16-2023 11:30-0500Diastolic blood puwxepvp69 mm[Hg] Jose Martin Mchugh Other [employer] Other 11-16-2023 11:30-4884BlN7% (BldA) [Mass fraction]97 % Jose Martin Mchugh Other [employer] Other 11-16-2023 11:30-0500Systolic blood usuaagul210 mm[Hg] Jose Martin Mchugh Other [employer] Other 10-23-2023 12:55-0400Diastolic blood aqafjrqy09 mm[Hg] MD Shaikh Storm Work Phone: [phone]10-23-2023 12:55-0400 Heart rate54 /min Carreonantonio Storm Work Phone: [phone])[address] [place], [place] 4101110-23-2023 12:55-0400 Respiratory rate16 /minMD Shaikh Storm Work Phone: [phone])[address] [place], [place] 4101110-23-2023 12:55-0400 SaO2% (BldA) [Mass fraction]95 %MD Shaikh Storm Work Phone: [phone])[address]10-23-2023 12:55-0400 Systolic blood ebbchehe323 mm[Hg]MD Shaikh Storm Work Phone: 1(434)[address] [place], [place] 4101110-23-2023 09:48-0400 Inhaled oxygen flow rate4 L/minMD Shaikh Storm Work Phone: 1(060)3-[address] [place], [place] 2273110-23-2023 07:22-0400 Body muewya002.8 cm Shubhamkaushik Work Phone: [phone])[address]10-23-2023 07:22-0400 Body .35 kg Shaikh Dotty Work Phone: [phone])[address] [place], [place] 4101110-12-2023 08:30-0400 Body .8 cmJose Martin Mchugh Other [employer] Other 10-12-2023 08:30-0400Body mass index (BMI) [Ratio] 28.26 kg/e7WsrlcnvJose Martin Mchugh Other [employer] Other 10-12-2023 08:30-0400Body cmaxwdnfxrq60.5 [degF] Jose Martin Jeison Other [employer] Other 10-12-2023 08:30-0400Body olrlja24.36 kgMagermania Mchugh Other [employer] Other 10-12-2023 08:30-0400Diastolic blood npnqhfuh54 mm[Hg] Jose Martin Mchugh Other [employer] Other 10-12-2023 08:30-2245OmE9% (BldA) [Mass fraction]97 % Jose Martin Mchugh Other [employer] Other 10-12-2023 08:30-0400Systolic blood rugcohjx364 mm[Hg] Jose Martin Mchugh Other [employer] Other 09-22-2023 11:15-0400Diastolic blood xjtzsehx12 mm[Hg] MD Shaikh Storm Work Phone: [facility]09-22-2023 11:15-0400 Heart rate45 /minMD Shaikh Storm Work Phone: [facility]09-22-2023 11:15-0400 Respiratory rate18 /minMD Shaikh Storm Work Phone: [facility]09-22-2023 11:15-0400 SaO2% (BldA) [Mass fraction]95 %MD Shaikh Storm Work Phone: [facility]09-22-2023 11:15-0400 Systolic blood cyymdveh582 mm[Hg]MD Shaikh Storm Work Phone: [facility]09-22-2023 11:07-0400 Body .8 cmMD Shaikh Dotty Work Phone: [facility]09-22-2023 11:07-0400 Body mass index (BMI) [Ratio]29 kg/m2MD Carreon Dotty Work Phone: [facility]09-22-2023 11:07-0400 Body yfbhpw73 kgMD Shaikh Dotty Work Phone: [facility]09-22-2023 07:53-0400 Body vudpwtzytbm17 [degF]MD Shaikh Storm Work Phone: [facility]09-20-2023 11:30-0400 Body tuhahm966.8 cmBonnie Tan Other [employer] [facility] [employer] Other 09-20-2023 11:30-0400Body mass index (BMI) [Ratio] 29.12 kg/a9EmkqiwBonnie Tan Other [employer] [facility] [employer] Other 09-20-2023 11:30-0400Body vgasqctexeg90.8 [degF]Bonnie Tan Other [employer] [facility] [employer] Other 09-20-2023 11:30-0400Body brxtuf80.08 kgBonnie Tan Other [employer] Other 09-20-2023 11:30-0400Diastolic blood mm[Hg] Bonnie Tan Other [employer] Other 09-20-2023 11:30-5728XjS4% (BldA) [Mass fraction]97 % Bonnie Tan Other [employer] Other 09-20-2023 11:30-0400Systolic blood fwyjwxcu854 mm[Hg] Bonnie Tan Other [employer] Other 09-13-2023 14:48-0400Blood Pressure LocationJENNIFER BRITNI [facility]09-13-2023 14:48-0400Diastolic blood jtufmfch42 mm[Hg]CLAIRE BRITNI [facility]09-13-2023 14:48-0400Heart rate80 /minJENNIFER BRITNI [facility]09-13-2023 14:48-0400Respiratory rate16 /minJENNIFER BRITNI [facility]09-13-2023 14:48-0400Systolic blood esyzlvrv625 mm[Hg]CLAIRE BRITNI [facility]08-21-2023 13:04-0400Body hmqzog22.63 kgPhillip Mendis DO Work Phone: [facility]08-21-2023 13:04-0400Diastolic blood xazykcdx09 mm[Hg]Jose Mendis DO Work Phone: [facility]08-21-2023 13:04-0400Heart rate48 /min Jose Mendis DO Work Phone: [facility]08-21-2023 13:04-0400Systolic blood gdcfjlni442 mm[Hg]Jose Nichols DO Work Phone: [facility]07-05-2023 14:57-0400Blood Pressure LocationJENNIFER BRITNI [facility]07-05-2023 14:57-0400Diastolic blood mm[Hg]CLAIRE JAMES [facility]07-05-2023 14:57-0400Heart rate69 /minJENNIFER BRITNI [facility]07-05-2023 14:57-0400Respiratory rate16 /minJENNIFER BRITNI [facility]07-05-2023 14:57-0400Systolic blood ajwjbwef931 mm[Hg]CLAIRE JAMES [facility]06-20-2023 13:29-0400Body ynyakuylysr72.71 [degF]SRAVANTHI Nazario MD Work Phone: [facility]06-20-2023 13:29-0400Body xzyzby39.53 kgSRAVANTHI Nazario MD Work Phone: [facility]06-20-2023 13:29-0400Diastolic blood mgzaqted73 mm[Hg]SRAVANTHI Nazario MD Work Phone: [facility]06-20-2023 13:29-0400Heart rate56 /min SRAVANTHI Nazario MD Work Phone: [facility]06-20-2023 13:29-0400Respiratory rate 18 /AmberSRAVANTHI Nazario MD Work Phone: [facility]06-20-2023 13:29-2283AeH5% (BldA) [Mass fraction]96 %SRAVANTHI Nazario MD Work Phone: [facility]06-20-2023 13:29-0400Systolic blood ftlpgyms365 mm[Hg]SRAVANTHI Nazario MD Work Phone: [facility]11-21-2022 15:30-0500Body temperature 96.69 [degF]SRAVANTHI Nazario MD Work Phone: [facility]11-21-2022 15:30-0500Body acfdcl03.71 kgSRAVANTHI Nazario MD Work Phone: [facility]11-21-2022 15:30-0500Diastolic blood luyifodf18 mm[Hg]SRAVANTHI Nazario MD Work Phone: [facility]11-21-2022 15:30-0500Heart rate58 /min SRAVANTHI Nazario MD Work Phone: [facility]11-21-2022 15:30-0500Respiratory rate 18 /AmberSRAVANTHI Nazario MD Work Phone: [facility]11-21-2022 15:30-2435EkM9% (BldA) [Mass fraction]98 %SRAVANTHI Nazario MD Work Phone: [facility]11-21-2022 15:30-0500Systolic blood vowgcbge217 mm[Hg]SRAVANTHI Nazario MD Work Phone: [facility]11-14-2022 15:04-0500Body temperature 97.59 [degF]SRAVANTHI Nazario MD Work Phone: [facility]11-14-2022 15:04-0500Body .44 kgSRAVANTHI Nazario MD Work Phone: [facility]11-14-2022 15:04-0500Diastolic blood vudolqjg99 mm[Hg]SRAVANTHI Nazario MD Work Phone: [facility]11-14-2022 15:04-0500Heart rate64 /min SRAVANTHI Nazario MD Work Phone: [address] [place], [place] 6874111-14-2022 15:04-0500Respiratory rate 16 /AmberSRAVANTHI Nazario MD Work Phone: [facility]11-14-2022 15:04-2514CgV0% (BldA) [Mass fraction]97 %SRAVANTHI Nazario MD Work Phone: [facility]11-14-2022 15:04-0500Systolic blood tuyqlltw896 mm[Hg]SRAVANTHI Nazario MD Work Phone: [facility]11-07-2022 11:01-0500Body temperature 97.39 [degF]SRAVANTHI Nazario MD Work Phone: [facility]11-07-2022 11:01-0500Body bvplic44.35 kgSRAVANTHI Nazario MD Work Phone: [facility]11-07-2022 11:01-0500Diastolic blood ahhxcctf62 mm[Hg]SRAVANTHI Nazario MD Work Phone: [facility]11-07-2022 11:01-0500Heart rate55 /min SRAVANTHI Nazario MD Work Phone: [facility]11-07-2022 11:01-0500Respiratory rate 18 /AmberSRAVANTHI Nazario MD Work Phone: [facility]11-07-2022 11:01-9721BuP6% (BldA) [Mass fraction]98 %SRAVANTHI Nazario MD Work Phone: [facility]11-07-2022 11:01-0500Systolic blood ujtzeefc427 mm[Hg]SRAVANTHI Nazario MD Work Phone: [facility]10-31-2022 15:33-0400Body temperature 96.69 [degF]SRAVANTHI Nazario MD Work Phone: [facility]10-31-2022 15:33-0400Body apwttn12.8 kgSRAVANTHI Nazario MD Work Phone: [facility]10-31-2022 15:33-0400Diastolic blood mtqoczmb79 mm[Hg]SRAVANTHI Nazario MD Work Phone: [phone]10-31-2022 15:33-0400Heart rate54 /min SRAVANTHI Nazario MD Work Phone: [phone]10-31-2022 15:33-0400Respiratory rate 18 /AmberSRAVANTHI Nazario MD Work Phone: [phone]10-31-2022 15:33-1355QcR8% (BldA) [Mass fraction]97 %SRAVANTHI Nazario MD Work Phone: [phone]10-31-2022 15:33-0400Systolic blood vakhtuqt169 mm[Hg]SRAVANTHI Nazario MD Work Phone: 1(523)253-[address] [place], [place] 3175710-24-2022 16:03-0400Body temperature 98.01 [degF]SRAVANTHI Nazario MD Work Phone: [phone] [place], [place] 3175710-24-2022 16:03-0400Body smhojh63.44 kgSRAVANTHI Nazario MD Work Phone: 1(635)218-[address] [place], [place] 3175710-24-2022 16:03-0400Diastolic blood gapxalri95 mm[Hg]SRAVANTHI Nazario MD Work Phone: 1(371)425-[address] [place], [place] 3175710-24-2022 16:03-0400Heart rate50 /min SRAVANTHI Nazario MD Work Phone: [phone]10-24-2022 16:03-0400Respiratory rate 16 /AmberSRAVANTHI Nazario MD Work Phone: [facility]10-24-2022 16:03-3696BiX0% (BldA) [Mass fraction]100 %SRAVANTHI Nazario MD Work Phone: [phone]10-24-2022 16:03-0400Systolic blood iolvwvkv706 mm[Hg]SRAVANTHI Nazario MD Work Phone: [phone]10-18-2022 11:52-0400Body temperature 97.9 [degF]SRAVANTHI Nazario MD Work Phone: [facility]10-18-2022 11:52-0400Body .44 kgSRAVANTHI Nazario MD Work Phone: [facility]10-18-2022 11:52-0400Diastolic blood tvnmpshy37 mm[Hg]SRAVANTHI Nazario MD Work Phone: [facility]10-18-2022 11:52-0400Heart rate56 /min SRAVANTHI Nazario MD Work Phone: [facility]10-18-2022 11:52-0400Respiratory rate 16 /AmberSRAVANTHI Nazario MD Work Phone: [facility]10-18-2022 11:52-7044JcP5% (BldA) [Mass fraction]96 %SRAVANTHI Nazario MD Work Phone: [facility]10-18-2022 11:52-0400Systolic blood ivsqjvok641 mm[Hg]SRAVANTHI Nazario MD Work Phone: [facility]07-12-2022 09:19-0400Body ekipee508.9 cmSRAVANTHI Nazario MD Work Phone: [facility]07-12-2022 09:19-0400Body temperature 98.71 [degF]SRAVANTHI Nazario MD Work Phone: [facility]07-12-2022 09:19-0400Body cbyzjv47.35 kgSRAVANTHI Nazario MD Work Phone: [facility]07-12-2022 09:19-0400Diastolic blood ldjmlexy47 mm[Hg]SRAVANTHI Nazario MD Work Phone: [facility]07-12-2022 09:19-0400Heart rate51 /min SRAVANTHI Nazario MD Work Phone: [facility]07-12-2022 09:19-0400Respiratory rate 16 /AmberSRAVANTHI Nazario MD Work Phone: [facility]07-12-2022 09:19-6085GnH2% (BldA) [Mass fraction]97 %SRAVANTHI Nazario MD Work Phone: [facility]07-12-2022 09:19-0400Systolic blood gaoclxhg221 mm[Hg]SRAVANTHI Nazario MD Work Phone: [facility]06-06-2022 09:48-0400Blood Pressure LocationPaharoldo PRESTON [facility] 06-06-2022 09:48-0400Diastolic blood cwkszezj11 mm[Hg] Barbara JOHNSTON [facility] 06-06-2022 09:48-0400Heart rate52 /minBarbara PRESTON [facility] 06-06-2022 09:48-0400Systolic blood ugyfqlae095 mm[Hg] Barbara JOHNSTON [facility] 05-26-2022 16:40-0400Body uhptnu636.8 cmAbdul Vivian Other [employer] Other 05-26-2022 16:40-0400Body mass index (BMI) [Ratio] 29.01 kg/l0Uxvkz Vivian Other [employer] Other 05-26-2022 16:40-0400Body [degF]Theo Vivian Other [employer] Other 05-26-2022 16:40-0400Body itfnqo34.72 kgAbdul Vivian Other [employer] Other 05-26-2022 16:40-0400Diastolic blood autfxxbc23 mm[Hg] Theo Vivian Other [employer] Other 05-26-2022 16:40-0400Respiratory rate18 /minAbdul Vivian Other [facility] [employer] Other 05-26-2022 16:40-5600UwD9% (BldA) [Mass fraction]96 % Theo Vivian Other [employer] Other 05-26-2022 16:40-0400Systolic blood djgiocxw074 mm[Hg] Theo Vivian Other [employer] Other Encounters Encounter DateEncounter TypeCare ProviderFacilityStart: 73-50-1601nnksdqthve Barbara JOHNSTONFacility:[facility]Start: 91-52-5189pksjlinmalEwwhuve R WATERS Facility:[facility]Start: 35-46-5687voftalingvJmvxaxx R WATERS Facility:CD:[id number]: 86-62-9026xqgaiqjaoiWTAIX [facility]: 03-14-2025 End: 68-95-5459vrlqiouyjoRwrk Naderer MD Work Phone: [facility] Work Phone: Start: 03-14-2025 End: 82-86-9982Ruzrdol encounter procedureJebradley Nuñez DO-[facility] Work Phone: Start: 82-29-7934Gqx-patient / Non-visitBarbara Johnston MD-[facility] [employer] [employer] Work Phone: Start: 03-07-2025 End: 06-56-6123tnuoeuamvtLobrvuk R WATERSFacility:FTMCStart: 87-25-6625Auc- patient / Non-visitBarbara Johnston MD-[facility] Work Phone: Start: 03-01-2025 End: 23-13-2134jwqaxovgfaVXMGP [facility] Start: 02-21-2025 End: 58-59-0996Ljsigpogr Result EncounterGeneric External Data ProviderNOMS External Department UnsolicitedStart: 02-21-2025 End: 54-62-1369Hqhsthory Result EncounterGeneric External Data ProviderNOMS External Department UnsolicitedStart: 02-20-2025 End: 88-93-9386cpwrwfddnfRzlj Naderer MD Work Phone: [facility] Work Phone: Start: 02-20-2025 End: 78-29-8929Giwbbia encounter procedureTheo Thakkar MD-[facility] Work Phone: Start: 02-13-2025 End: 26-75-9376Zakoailpj Result EncounterGeneric External Data ProviderNOMS External Department UnsolicitedStart: 02-13-2025 End: 73-22-1014Eplvlrvys Result EncounterGeneric External Data ProviderNOMS External Department UnsolicitedStart: 52-93-4177Ezu-patient / Non-visitTheo Thakkar MD-[facility] Work Phone: Start: 01-18-2025 End: 76-41-3947Ukrkzt outpatient visit 15 minutesG Jose Nazario MD Work Phone: Radiation OncologyComment on above:Cancer of prostate w/med recur risk (T2b-c or Nicola 7 or PSA 10-20) (HCC) (Primary Dx)Start: 01-18-2025 End: 14-35-2510arzfmqryliA PHILLIP ENGELERFacility:[facility] Start: 01-12-2025 End: 75-21-6636Jnldflooq Result EncounterGeneric External Data ProviderNOMS External Department UnsolicitedStart: 01-12-2025 End: 90-69-1356Hnpybgfon Result EncounterGeneric External Data ProviderNOMS External Department UnsolicitedStart: 01-12-2025 End: 13-99-7950xcbninnrvfW JOSE VJDYANARFacility:[facility] Start: 09-12-2024 End: 71-41-8416IpiqtyWazq Naderer MD Work Phone: noms [facility] FMComment on above:Primary hypertension (CMS/HCC)Start: 08-30-2024 End: 77-90-5153onnqbxxyeaCVBDU K [facility] AmbulatoryStart: 08-30-2024 End: 09-87-1748Ukkyta outpatient visit 15 minutesJose Hector PARTS SPECIALIST-SOUND RANGING CREWMEMBER Work Phone: uh FirelandsComment on above:Mixed hyperlipidemia (Primary Dx); Bilateral carotid artery disease, unspecified type; Hypertension, unspecified type; BMI 28.0-28.9,adult; Smoker; Prostate cancer (Multi); Chronic kidney disease, stage 3b (Multi); ASHD (arteriosclerotic heart disease); PVD (peripheral vascular disease) ([facility]-HCC)Start: 08-29-2024 End: 49-08-4868xszbmaokhoRKJVRLZL E PERRYFacility:FTMCStart: 08-29-2024 End: 99-33-5153Fpo Drop offJENNIFER E BRITNI [facility] Start: 08-29-2024 End: 23-32-4666aswvadwqouNBWRCFJA E PERRYFacility:EU BellevueStart: 08-22-2024 End: 52-24-7384kejnzevxshUrldoy X OrzechFacility:FTMCStart: 08-22-2024 End: 49-27-4451Org Drop offAurora X Orzech [facility] Start: 08-22-2024 End: 50-03-5203jtojqmvjkxOblcymw R WATERSFacility:EU BellevueStart: 08-18-2024 End: 51-56-2019zohgrdxocbMBLSCMC OVThe Surgical Hospital at Southwoodstart: 08-15-2024 End: 90-77-8449pkmiegfqvxXigq Naderer MD Work Phone: [facility] Work Phone: Start: 08-15-2024 End: 70-10-4023Cldepgw encounter procedureBrian Avalos MD Work Phone: [facility] Work Phone: Start: 08-10-2024 End: 70-04-4323Nxqazpc encounter procedureBrian Avalos MD Work Phone: [facility] [place] Work Phone: Start: 08-10-2024 End: 95-10-1176cjqpwfqyziGewe Naderer MD Work Phone: [facility] Work Phone: Start: 08-08-2024 End: 07-90-8620Mzv Drop offJENNIFER E BRITNI [facility] Start: 08-08-2024 End: 10-08-6215lnjhjmppxyAFSQKVME E PERRYFacility:FTMCStart: 07-14-2024 End: 92-88-9242Adzwanszg department patient visitBrian Avalos MD Work Phone: [facility]-Emergency Room Work Phone: Start: 07-13-2024 End: 59-96-0519Qatxyz flowsheetBrtariq CarterWard FINANCIAL LEGAL ASSISTANT Work Phone: NOSD CWM FMStart: 07-13-2024 End: 60-78-7939Bzphox flowsheetBrittany Ward FINANCIAL LEGAL ASSISTANT Work Phone: noms CWM FMStart: 07-13-2024 End: 07-37-2045Ohurnx outpatient visit 15 minutesBrittjustin CarterWard FINANCIAL LEGAL ASSISTANT Work Phone: noms CWM FMComment on above:Stage 3a chronic kidney disease (HCC) (CMS/HCC) (Primary Dx); Lumbar stenosis with neurogenic claudication; Mixed hyperlipidemia (CMS/HCC); Primary hypertension (CMS/HCC)Start: 07-13-2024 End: 57-73-0403pmhilxbxhcIJVLVEUJ FITZPATRICKNot AvailableStart: 04-21-2024 End: 47-93-2327Mrzzpb flowsheetBrittany Ward FINANCIAL LEGAL ASSISTANT Work Phone: noms CWM FMStart: 04-21-2024 End: 84-84-4572Lsfadt flowsheetBrittany Ward FINANCIAL LEGAL ASSISTANT Work Phone: noms CWM FMStart: 04-21-2024 End: 85-39-9941Figjxr outpatient visit 15 minutesBrtariq Lopeztrick FINANCIAL LEGAL ASSISTANT Work Phone: noms CWM FMComment on above:Mixed hyperlipidemia (CMS/HCC) (Primary Dx); Primary hypertension (CMS/HCC); Stage 3a chronic kidney disease (HCC) (CMS/HCC)Start: 04-21-2024 End: 45-58-7016fqwftbkiswEAUEKAYE DEANDREZPATRICKNot AvailableStart: 04-18-2024 End: 12-11-4964pgkcqhjoejVjlwxdf R WATERSFacility:EU BellevueStart: 04-18-2024 End: 27-48-8995Hpyddyx encounter procedureBarbara JOHNSTON [facility] start: 04-07-2024 End: 99-31-7734Tqv Drop offKarime Gunderson [facility] Start: 04-07-2024 End: 23-86-2078fhsmwghqnrGmwyur J GaleaFacility:FTMCStart: 04-07-2024 End: 29-73-6831Hxccgyo encounter procedureKarime Gunderson [facility] Sawyer start: 02-29-2024 End: 75-81-3780xtxvcpyxniLXONMALNH NO [facility] Work Phone: Start: 02-29-2024 End: 69-75-5706Xrdpoec encounter procedurePHYSICIAN NO [facility] Nephrology Xenia Work Phone: Start: 02-25-2024 End: 76-25-8331hehchpnzdoISAUHVLAS NO [facility] Work Phone: Start: 02-25-2024 End: 68-90-0356Vetsron encounter procedurePHYSICIAN NO [facility] [place] Work Phone: Start: 02-18-2024 End: 88-76-3618DkkdvpCqzdti [place] MANOMS CWM FMComment on above:Primary hypertension (CMS/HCC)Start: 02-02-2024 End: 60-85-3806SgyesqDigshg [place] MANOMS CWM IMComment on above:Primary hypertension (CMS/HCC)Start: 01-20-2024 End: 89-24-2041Kmkzox outpatient visit 25 Preston Ward NP Work Phone: noms CWM FMComment on above:Primary hypertension (CMS/HCC) (Primary Dx); 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 (CMS/HCC); Stage 3a chronic kidney disease (HCC) (CMS/HCC); Gastroesophageal reflux disease without esophagitis; Tobacco abuse; Prostate cancer (CMS/HCC); Benign prostatic hyperplasia with lower urinary tract symptoms, symptom details unspecifiedStart: 01-20-2024 End: 19-57-5397mzljftsyegGGDXRVHK FITZPATRICKNot AvailableStart: 01-20-2024 End: 51-50-0185Vumchz flowsheetBrittany Ward FINANCIAL LEGAL ASSISTANT Work Phone: noms CWM FMStart: 01-20-2024 End: 13-32-5910Nbitld flowsheetBrittany Ward FINANCIAL LEGAL ASSISTANT Work Phone: noms CW FMStart: 12-15-2023 End: 35-71-0529Zcbfsug encounter procedureG Jose Nazario MD Work Phone: Radiation OncologyComment on above:Prostate cancer (HCC) (Primary Dx); Stage 3 chronic kidney disease, unspecified whether stage 3a or 3b CKD (HCC) Start: 12-08-2023 End: 37-08-3664taafoajjscBTFDGG FAWWADNot AvailableStart: 10-15-2023 End: 72-04-0544Hnkauof encounter procedureMD Shaikh Storm Work Phone: [facility] Vascular Surgery Work Phone: Start: 10-01-2023 End: 36-74-9609swqawdmvrbKP Carreongeri Storm Work Phone: [facility] Work Phone: Start: 10-01-2023 End: 21-88-1941Nhtkqfx encounter procedure Carreon Dotty Work Phone: [facility] [place] Work Phone: Start: 09-28-2023 End: 82-09-1354jlfvuiyxdbHFIXNW FAWWADNot AvailableStart: 09-18-2023 End: 58-58-9887jsrtmkrqzzAjqqkic R WATERSFacility:EU BellevueStart: 09-18-2023 End: 51-96-3682Wmqanzs encounter procedureBarbara JOHNSTON [facility] start: 40-90-0756Lpb-patient / Non-visitMD Shaikh Dotty Work Phone: [facility] GroupSamaritan [facility] Work Phone: Start: 08-18-2023 End: 61-22-9938Kqmaxk outpatient visit 25 minutesChaim Grayson DO Work Phone: uh Wikinvestwillapa harbor hospitalComment on above:Hypertension, unspecified type; Mixed hyperlipidemia; Bilateral carotid artery disease, unspecified type (CMS/HCC); History of [place] (myocardial infarction); BMI 28.0-28.9,adult; ASHD (arteriosclerotic heart disease); PVD (peripheral vascular disease) (CMS/HCC); Smoker; Chest pain, unspecified typeStart: 08-10-2023 End: 93-96-7892iuoyjhoqekOjifhauAdalid Will MDFacility:[facility] Start: 07-07-2023 End: 21-59-6532hlzxhqjolyRSUWTCFF E PERRYFacility:FTROBERT H. BALLARD REHABIL[facility]ATION HOSPITALtart: 06-18-2023 End: 63-27-3219tphxhhdsziEHHEMMY S Marion Hospitaltart: 06-18-2023 End: 12-14-1179Qncleqmxky hospital visit by Mimi [place] [facility] 1 [facility] HospitalStart: 06-12-2023 End: 59-93-7214xtlyeaeafkTOCVEPB G MENDISFacility:[facility] Columbustart: 06-12-2023 End: 11-02-7285Jpypvm outpatient new 45 minutesBilal Conor Reynolds MD Work Phone: [facility] InstituteComment on above:Spondylolisthesis of lumbar region (Primary Dx)Start: 06-04-2023 End: 64-15-8551Sfzzta consultation new/estab patient 80 minPratimajamila Grayson DO Work Phone: uh Firewillapa harbor hospitalComment on above:Hypertension, unspecified type; Stage 3 chronic kidney disease, unspecified whether stage 3a or 3b CKD (CMS/HCC); Mixed hyperlipidemia; Bilateral carotid artery disease, unspecified type (CMS/HCC); Smoker; Chest pressureStart: 05-21-2023 End: 45-95-3948jgxyzsbfwzCT Shaikh Fawwad Work Phone: [facility] Work Phone: Start: 05-21-2023 End: 85-79-0448Wgjauwz encounter procedure Shaikh Dotty Work Phone: [facility]-Electrodiagnostics Work Phone: Start: 00-13-9257Zdszrgxow encounterG Jose Nazario MD Work Phone: Cancer Appts MCComment on above:Appointment ConfirmationStart: 13-41-6680vataeuduogLwnmgsd Hyun Mendgentry DO Work Phone: [facility] FHCStart: 90-33-3839Frbljzn encounter procedurePhillip Hyun Mendis DO Work Phone: Spine MedicineComment on above:Consultation with a surgeonStart: 04-21-2023 End: 49-43-2933djstgvwycyXPXDQXWP E PERRYFacility:FTMCStart: 04-21-2023 End: 76-28-6263Zdm Drop offJENNIFER E BRITNI [facility] Start: 04-21-2023 End: 94-02-9391Pxcqznr encounter procedureJENNIFER E BRITNI [facility] start: 54-08-6190Jzipja outpatient visit 15 minutes Jose Martin Mena Vascular SurgeryStart: 04-16-2023 End: 32-53-2448nvpvwaxqgxTG Shaikh Donaldbokoer Work Phone: [employer] Other Start: 04-16-2023 End: 85-85-7201Kuotxoj encounter procedureMD Shaikh Elainegage Work Phone: [facility]-Ultras[facility] VascularStart: 03-23-2023 End: 22-90-5150Mynbjdjfg to same day surgery centerMD Shubhamstaciagage Work Phone: [facility]-Interventional Radiology Work Phone: Start: 03-23-2023 End: 14-41-3411zjwuabjhazUJ Shaikh Elainegage Work Phone: [facility] Work Phone: Start: 03-12-2023 End: 30-34-3569zvjlcpzqzyVyjtkfb Langenberg Other [employer] Other Start: 08-80-1048Dvibno outpatient visit 25 minutes Jose Martin Mena Vascular SurgeryStart: 18-92-4671Ekarkvogw encounterAbdul QadirFPG NephrologyStart: 03-09-2023 End: 51-03-7616urzqbvnbmnSR Shaikh Elainegage Work Phone: [facility] Work Phone: Start: 03-09-2023 End: 41-86-9532Ztgzlrn encounter procedureMD Shaikh Elainegage Work Phone: [facility] [place] Work Phone: Start: 03-05-2023 End: 93-17-7127tcgpwtovbkMI Shaikh Elainegage Work Phone: [facility] Work Phone: Start: 03-05-2023 End: 27-96-2311Ujxpexe encounter procedureMD Dotty Work Phone: [facility]-Ultrasound [facility] [place] Work Phone: Start: 03-04-2023 End: 97-26-7613vhizqncigrKN Dotty Work Phone: [facility] Work Phone: Start: 03-04-2023 End: 40-36-3062Ioxnyct encounter procedureMD Shaikh Elainegage Work Phone: [facility]-Ultrasound [facility] [place] Work Phone: Start: 02-20-2023 End: 03-92-6579Pibkanupc to same day surgery centerMD Dotty Work Phone: [facility]gery Center [facility] CenterStart: 02-18-2023 End: 79-56-4243ujzimzfqztUfslno Ruttino Other [employer] Other Start: 12-38-1520Noyivr outpatient new 60 minutes Bonnie Moyer Vascular SurgeryStart: 02-11-2023 End: 90-44-5573Vxgycpe encounter procedureCLAIRE JAMES [facility] start: 02-06-2023 End: 32-83-6179ddgdbcryomYH Shubhamstaciagage Work Phone: [facility] Work Phone: Start: 02-06-2023 End: 93-26-4953Afyrpqay ReferredMD Shaikh Elainegage Work Phone: [facility] Iln-Vrk-Jaanqbrg Testing Work Phone: Start: 02-06-2023 End: 71-99-2756Csxpgex encounter procedureMD Carreon Dotty Work Phone: [facility] Wsh-Bon-Zownentm Testing Work Phone: Start: 19-67-2630Elbrbbzjp encounterConstance BROWN Hematology/OncologyComment on above:Social Work ServicesStart: 01-19-2023 End: 69-78-6303Dclkmjr encounter procedurePhihermesfloyd Nichols DO Work Phone: Spine MedicineComment on above:Spinal stenosis, lumbar region with neurogenic claudication (Primary Dx); Foraminal stenosis of lumbar region; Peripheral artery disease (HCC); Prostate cancer (HCC)Start: 09-46-7233Lvgiwqgyz encounterPhillfloyd Hyun Nichols DO Work Phone: [phone] InstituteComment on above:Orders; AppointmentStart: 01-09-2023 End: 02-11-8494joltjqijmwZM Shaikh Shubhamkaushik Work Phone: [facility] Work Phone: Start: 01-09-2023 End: 69-98-2386Tlwykvx encounter procedure Shaikh Donaldbooker Work Phone: [facility] [place] Work Phone: Start: 40-30-5431Kttuspiul encounterHyun Nazario MD Work Phone: Radiation OncologyComment on above:OrdersStart: 44-21-4018Atiajotmp encounterMepina Chamberlain RNFV INTERVENTIONAL RADIOLOGYComment on above:Patient Question; AppointmentStart: 12-03-2022 End: 34-44-1988Psdcfse encounter procedureCLAIRE JAMES [facility] start: 70-22-5306Ipqmvcpch encounterHyun Nazario MD Work Phone: Cancer Appts MCComment on above:Referral Information Start: 11-18-2022 End: 14-57-3342rkogtefngwPmtab Martinez APRN.CNP Work Phone: Hematology/OncologyComment on above:Prostate cancer (HCC); Stage 3 chronic kidney disease, unspecified whether stage 3a or 3b CKD (HCC) Start: 11-18-2022 End: 80-80-2609Glwxxlq encounter procedureG Jose Nazario MD Work Phone: Radiation OncologyComment on above:History of prostate cancer (Primary Dx); Spinal arthritis; Spinal stenosis of lumbar region, unspecified whether neurogenic claudication presentStart: 10-28-2022 End: 28-40-2630qdcjwmioboMRFPMY H FAWWADFacility:A6Grrqj: 10-09-2022 End: 94-35-9485yvippuimkxPCOCUZSWPJVM LAKSHMIPATHY .Facility:R3Oeeho: 07-15-2022 ambulatoryGEORGE MOUKAINLAND NORTHWEST BEHAVIORAL HEALTHacility:C5Vjksx: 16-41-2060Zwksicemn encounterLori Ladarius LSWHematology/OncologyComment on above:Social Work ServicesStart: 06-05-2022 End: 72-16-6467Zlvexko encounter procedureLab/Bernice Jama Work Phone: Radiation OncologyComment on above:Urinary tract infection without hematuria, site unspecified (Primary Dx)Start: 05-15-2022 Telephone encounterG Jose Nazario MD Work Phone: Radiation OncologyComment on above:Results; AppointmentStart: 05-15-2022 End: 38-76-8466ptnepoeiddZC VIMAL S KUMAR .Facility:S0Vwlcp: 05-09-2022 End: 50-08-6131oawhgieszqNMMireya Storm Work Phone: [facility] Work Phone: Start: 05-09-2022 End: 79-57-5785Jnbknbd encounter Brenton Storm Work Phone: [facility]-Lab Main CampusStart: 92-35-3221Bbsbqb WorkLori Ladarius BROOKSWHematology/OncologyStart: 04-23-2022 End: 32-89-4905odtgxvgslaSTMireya Storm Work Phone: [facility] Work Phone: Start: 04-23-2022 End: 02-96-8863Jmrozvp encounter procedureMD Shaikh Dotty Work Phone: [facility]-Lab Main CampusStart: 40-12-0340Vmhirtdxk Oncology NoteG Jose Nazario MD Work Phone: Radiation OncologyComment on above:Completion Note Start: 04-21-2022 End: 58-99-4367Ljlnsic encounter procedureHyun Nazario MD Work Phone: Radiation OncologyComment on above:Malignant neoplasm of prostate (HCC) (Primary Dx)Start: 04-14-2022 End: 26-10-1253Otddjlp encounter procedureHyun Nazario MD Work Phone: Radiation OncologyComment on above:Malignant neoplasm of prostate (HCC) (Primary Dx)Start: 04-07-2022 End: 69-83-4405Rpqrart encounter procedureHyun Nazario MD Work Phone: Radiation OncologyComment on above:Malignant neoplasm of prostate (HCC) (Primary Dx)Start: 03-31-2022 End: 39-55-2193Bkzbjb WorkLorchilo BROOKSWHematology/OncologyComment on above: Malignant neoplasm of prostate (HCC) (Primary Dx)Start: 03-27-2022 End: 98-39-1229Veimusb encounter procedureBryan/Bernice Jama Work Phone: Radiation OncologyComment on above:Malignant neoplasm of prostate (HCC)Start: 03-24-2022 End: 05-32-8466Fatlkwf encounter procedureHyun Nazario MD Work Phone: Radiation OncologyComment on above:Malignant neoplasm of prostate (HCC) (Primary Dx)Start: 36-07-5055Fwffoxgha encounterHyun Nazario MD Work Phone: Radiation OncologyComment on above:OrdersStart: 03-18-2022 End: 11-03-4655Ojbytou encounter procedureG Jose Nazario MD Work Phone: Radiation OncologyComment on above:Malignant neoplasm of prostate (HCC) (Primary Dx)Start: 03-13-2022 End: 40-76-2789rqltizxzyfUE HOSEA Laeny OLIVA .Facility:B0Rwzao: 59-69-1437Qkwixjt encounter procedureG Jose Nazario MD Work Phone: SANDUSKYStart: 59-87-4193Mgxqwruuf Oncology NoteG Jose Nazario MD Work Phone: Radiation OncologyComment on above:Treatment Planning Start: 03-12-2022 End: 68-65-4613Hukjga WorkLori Ladarius LSWHematology/OncologyStart: 03-04-2022 Telephone encounterLori Ladarius LSWHematology/OncologyComment on above:Social Work ServicesStart: 03-03-2022 End: 19-22-5889Hahzwah encounter procedureG Jose Nazario MD Work Phone: Radiation OncologyComment on above:Malignant neoplasm of prostate (HCC) (Primary Dx)Start: 85-78-0717Njeeebbor encounterG Jose Nazario MD Work Phone: Radiation OncologyComment on above:Patient Update; AppointmentStart: 44-39-7937lawmfvdfjzGsmdcodg:69416Xktyu: 02-13-2022 End: 27-02-0675Lbtbqml encounter procedureZeinab Justice [facility] Start: 02-11-2022 End: 41-01-3426xcyxamluctZW HOSEA Laney OLIVA .Facility:C9Knnbm: 72-47-0362Rqewnhisk for preprocedural laboratory examinationDR HOSEA OLIVA .[facility] Start: 15-12-4848Bojmngkop encounterG Jose Nazario MD Work Phone: Radiation OncologyComment on above:Patient Update Start: 02-07-2022 End: 16-90-0884rfigmygsouFW HOSEA OLIVA .Facility:L1Qldmv: 02-07-2022 End: 69-18-5009Fqpnpurwo for preprocedural laboratory examinationDR HOSEA OLIVA .Facility:M6Veggo: 09-82-6377baluzyexakGB HOSEA OLIVA .Facility:E1Ntiew: 01-30-2022 End: 32-15-2437ubbvaiofnzCRBJQ QADIRFacility:I6Pxkiy: 01-23-2022 End: 50-96-5720fjlgyduadvNEOW HOBBS .Facility:Y9Yffth: 01-07-2022 End: 48-53-5782ohsecovmqrGR HOSEA OLIVA .Facility:N4Nxmmo: 12-26-2021 End: 50-97-4981hdyudmlvcnDXKB SOLIS .Facility:Q8Oktvy: 23-91-5353Vbdubakfn encounterG Jose Nazario MD Work Phone: Radiation OncologyComment on above:Patient Update Start: 12-17-2021 End: 90-97-8732vfkltfldanAK HOSEA OLIVA .Facility:G7Fvqow: 12-12-2021 End: 81-68-7893xdndxkvrvsKAHV SOLIS .Facility:V1Nrcnc: 12-10-2021 End: 14-99-6224Tfzvinq encounter procedureG Jose Nazario MD Work Phone: Radiation OncologyComment on above:Malignant neoplasm of prostate (HCC) (Primary Dx)Start: 11-04-2021 End: 92-13-0975Tvzkima encounter procedurePaharoldo JOHNSTON [facility] start: 10-24-2021 End: 60-27-1138lwwuebnmnvKkwuw Vivian Other [employer] Other Start: 75-57-9691Tzverq outpatient new 45 minutesAbdul QadirFPG Nephrology Rene Procedures DateProcedureProcedure DetailPerforming ClinicianStart: 49-99-9795Kr lumbar spine w/o contrast materialGeneric External Data ProviderStart: 72-97-8207TFBL CBC WITH PLATELET NO DIFFERENTIALGeneric External Data ProviderStart: 01-12-2025 [facility] PSA SERPL-MCNCGeneric External Data ProviderStart: 70-09-7306Zdxfrq-up visit Follow-Yazmin OVITTStart: 18-88-8294Guoxg cultureMarc Bailey MAK Work Phone: Start: 85-39-4690Gsrib culturePHYSICIAN NO FAMILY Start: 70-94-3607Qfhdvhmpi on backPaDine perfectk [employer] Start: 65-17-4306Wfg routine ecg w/least 12 lds w/i&r Chaim Laney Kenan [employer] Work Phone: Start: 33-34-6760FHAGQRS STRESS TESTTIFFANIEMARKIE GRAYSON Start: 23-46-1678Zk strs tst xers&/or rx cont ecg trcg onlyWillmarkie Grayson [employer] Work Phone: Start: 41-11-9596Pyl routine ecg w/least 12 lds w/i&r Chaim Davison Kenan [employer] Work Phone: Start: 42-63-6162Uakrr brachial pressure indexRI Shaikh Dotty Work Phone: Start: 48-44-4082Dyeke limb angiographyRI Shaikh Donaldbooker Work Phone: Start: 55-18-1458Tazdn cultureRI Shaikh Dotty Work Phone: Start: 30-77-0204Xslsp volume recorder plethysmography MD Shaikh Storm Work Phone: Start: 87-15-4162Zfmfnes ultrasonography of bilateral carotid arteriesRI Carreon Shubhamstaciachasitybooker Work Phone: Start: 04-66-6461IQ pre/post mri xrayRI Carreonantonio Storm Work Phone: Start: 71-03-8131QW CAT/MRI W/ IV SEDATION (Not Applicable)MD Shaikh Storm Work Phone: Start: 61-59-8624PEX of lumbar spine with contrastMD Shaikh Storm Work Phone: Start: 09-86-8426Adejo beam external beam radiation therapyCLAIRE JAMES Start: 67-37-5614Inuet count complete auto&auto difrntl wbcG Jose Nazario MD Work Phone: Start: 26-13-1390Kskqtpjkybbcc prostatectomyPassHat Start: 40-55-5270Eabgnwyehzp biopsy of prostate using ultrasound guidancePassHat Start: 25-49-6399Dpkjgzzijkshv cystoscopyPassHat Bilateral cataracts (disorder)CLAIREJAVIER JAMES ColonoscopyPassHat EndarterectomyCLAIRE JAMES Procedure on backPassHat Plan of Treatment DateCare ActivityDetailAuthorStart: 14-83-8089Bhquxuxq ScreeningDiabetes ScreeningKettering Health Washington Townshiptart: 55-21-4289Pkhianpn ScreeningDiabetes Screening [facility] Townshiptart: 08-30-2025 End: 94-53-0346Vlrgchy encounter igjagqpyr49/01/2026 10:00 AM EDT Office Visit [facility] [address] [place] [address] Chaim Grayson DO [address] [place], [place] [id number] [facility] CenterStart: 95-69-6830csbfofsjtxJqpjvtpyug Facility: [place]Start: 04-20-2025 End: 93-20-8054Eghovcoo specific Ag [Mass/volume] in Serum or PlasmaPROSTATE- SPECIFIC ANTIGEN DIAGNOSTIC Lab Routine Cancer of prostate w/med recur risk (T2b-c or [place] 7 or PSA 10-20) (HCC) Expected: 04/20/2025, Expires: 07/20/2025[facility] Work Phone: Comment on above:Expected: 04/20/2025, Expires: 07/20/2025Start: 04-20-2025 End: 27-61-6710Hvbgkhg encounter nospyridk19/20/2025 9:45 AM EST Office Visit Radiation Oncology [address] [place] [address] Hyun Nazario MD [address] [place] [address] 3 month follow upRadiation OncologyComment on above:3 month follow upStart: 99-45-9747RxgpmoajxAll[facility] Start: 12-14-2024 End: 10-59-7060Wmdwqcwj specific Ag [Mass/volume] in Serum or PlasmaPROSTATE- SPECIFIC ANTIGEN DIAGNOSTIC Lab Routine Prostate cancer (HCC) Expected: 12/14/2024, Expires: 03/15/2025[facility] Work Phone: Comment on above:Expected: 12/14/2024, Expires: 03/15/2025Start: 12-13-2024 End: 76-23-2918Surjnvp encounter cviaujnnk07/15/2025 1:15 PM EDT Office Visit Radiation Oncology [address] [place] [address] Hyun Nazario MD [address] [place] [address] 1 yr rvRadiation OncologyComment on above:1 yr rvStart: 07-09-2025Medicare Annual Wellness (AWV)Medicare Annual Wellness (AWV)[facility] HealthcareStart: 12-06-2024 End: 08-13-3487Ysvkmxo encounter scoqenbkg64/08/2025 1:00 PM EDT Office Visit [facility] [address] [place] [address] [facility] LaboratoryComment on above:LabStart: 52-47-0096Fzbeorlw blood countHemoglobin/HematocritKettering Health Washington Townshiptart: 94-86-6421Ygrsjnlvpd measurementSerum CreatinineMemorial Health System Start: 09-29-2024 End: 67-39-4416Doeemik encounter yymugollr74/01/2025 10:00 AM EDT Office Visit [facility] [address] [place] [address] Nasir Ward, VALENTIN [address] [place] [place] [address] [facility] FMStart: 08-18-2024 End: 93-50-9111Pobwtjy encounter pcrddibss05/20/2025 10:00 AM EDT Office Visit [place] [address] [facility] [address] [place] [address] Chaim Grayson, [address] [facility] [address] [place] [address] [facility]Start: 32-41-3675Wtptdtdh identified in Urine by CultureUrine [facility] Centertart: 08-10-2024 Urine cultureMiami Valley Hospitaltart: 07-13-2024 End: 81-00-8553Avifsvg encounter procedureNOMS CWM FMComment on above:Arrived Start: 74-98-0833Fktuyjigop measurementSerum CreatinineKettering Health Washington Townshiptart: 50-56-7217Cazibul Directive DiscussionAdvance Directive DiscussionKettering Health Washington Townshiptart: 01-01-2025Medicare Advantage Annual Wellness VisitMedicare [facility] Annual Wellness VisitKettering Health Washington Townshiptart: 04-21-2024 End: 43-32-5061Diqdajj encounter procedureNOMS CWM FMComment on above:Arrived Start: 64-50-5366Vnccrpmm identified in Urine by [facility] Centertart: 97-91-2405Poosu-19 Vaccine ( season)Covid-19 Vaccine ()[facility]art: 84-16-8991Dcciimhwq vaccinationInfluenza Vaccine (#1)[facility]: 01-20-2024 End: 57-15-9599Xvgffjh encounter fjcndtfry60/21/2024 6:00 PM EDT Office Visit [facility] [address] [place] [place] [address] Nasir Ward, VALENTIN [address] [place] [address] Primary hypertension (CMS/HCC) (Primary Dx); 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 (CMS/HCC); Stage 3a chronic kidney disease (HCC) (CMS/HCC); Gastroesophageal reflux disease without esophagitisNOMS CWM FMComment on above:Primary hypertension (CMS/HCC) (Primary Dx); 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 (CMS/HCC); Stage 3a chronic kidney disease (HCC) (CMS/HCC); Gastroesophageal reflux disease without esophagitisStart: 76-62-5959Qrtoq brachial pressure indexMiami Valley Hospitaltart: 08-18-2023 End: 36-73-3982Uiivknw encounter jthhdgrjo27/19/2024 11:10 AM EDT Office Visit [address] [place] [address] Chaim Grayson DO [address] [facility] [address] [place] [address] [facility]Start: 07-08-2023 End: 85-66-5822Vcpbwdbg Pjieuem5407/08/2023 10:30 AM EST Clinical Support [address] [place] [address] [facility] Start: 06-04-2023 End: 30-88-0868Mkcozau aminotransferase [Enzymatic activity/volume] in Serum or Plasma by With P-5'-PAlanine Aminotransferase Lab Routine Hypertension, unspecified type Bilateral carotid artery disease, unspecified type (CMS/HCC) Expected: 06/04/2023 (Approximate), Expires: 06/04/2024[facility] Work Phone: Comment on above:Expected: 06/04/2023 (Approximate), Expires: 06/04/2024Start: 06-04-2023 End: 49-38-0377Sdfipizdp aminotransferase [Enzymatic activity/volume] in Serum or Plasma by With P-5'-PAspartate Aminotransferase Lab Routine Hypertension, unspecified type Bilateral carotid artery disease, unspecified type (CMS/HCC) Expected: 06/04/2023 (Approximate), Expires: 06/04/2024[facility] Work Phone: Comment on above:Expected: 06/04/2023 (Approximate), Expires: 06/04/2024Start: 06-04-2023 End: 57-21-3303Wketc metabolic 2000 panel - Serum or PlasmaBasic Metabolic Panel Lab Routine Hypertension, unspecified type Mixed hyperlipidemia Expected: 08/2023 (Approximate), Expires: 06/04/2024[facility] Work Phone: Comment on above:Expected: 06/04/2023 (Approximate), Expires: 06/04/2024Start: 06-04-2023 End: 40-71-2266Fdlyy 1996 panel - Serum or PlasmaLipid Panel Lab Routine Mixed hyperlipidemia Expected: 06/04/2023 (Approximate), Expires: 06/04/2024[facility] Work Phone: Comment on above:Expected: 06/04/2023 (Approximate), Expires: 06/04/2024Start: 06-04-2023 End: 82-83-8629HN Heart Perfusion W stress and W radionuclide IVNuclear Stress Test Cardiac Nuclear Medicine Routine Hypertension, unspecified type Bilateral carotid artery disease, unspecified type (CMS/HCC) Chest pressure Expected: 06/04/2023 (Approximate), Expires: 06/04/2025[facility] Work Phone: Comment on above:Expected: 06/04/2023 (Approximate), Expires: 06/04/2025Start: 86-85-7822Blutils Directive DiscussionAdvance Directive DiscussionKettering Health Washington Townshiptart: 54-96-2088Qevrlxxaie Health Screening Behavioral Health ScreeningKettering Health Washington Townshiptart: 28-19-3262Dyluhqeyam AssessmentDepression AssessmentKettering Health Washington Townshiptart: 05-20-2023 End: 03-91-8929Bsgmvrpc specific Ag [Mass/volume] in Serum or Plasma PSA/PROSTSPECAG DIAG Lab Routine History of prostate cancer Expected: 05/20/2023, Expires: 07/20/2023[facility] Work Phone: Comment on above:Expected: 05/20/2023, Expires: 07/20/2023Start: 61-70-8299Auekobug blood countHemoglobin/HematocritKettering Health Washington Townshiptart: 07-84-4198HSFCRMCWUG/HEMATOCRITHEMOGLOBIN/HEMATOCRITKettering Health Washington Townshiptart: 26-66-6786FnyhmalzoMiami Valley Hospitaltart: 03-09-2023 Bacteria identified in Urine by CultureMiami Valley Hospitaltart: 94-68-1852Culmb volume recorder plethysmographyScci Hospital Lima Start: 02-20-2023 End: 53-08-4536OebxeksvrMiami Valley Hospitaltart: 27-35-1422Ucdkb-19 Vaccine ( season)Covid-19 Vaccine ()[facility]: 93-16-6059Ulfdhwsou vaccinationKettering Health Washington Townshiptart: 06-03-2022 End: 85-02-9699Pfvtrruz identified in Urine by CultureURINE CULTURE Microbiology Routine Hematuria, unspecified type Malignant neoplasm of prostate (HCC) Expected: 06/03/2022 (Approximate), Expires: 08/03/2022[facility] Work Phone: Comment on above:Expected: 06/03/2022 (Approximate), Expires: 08/03/2022Start: 06-03-2022 End: 58-66-3914IN DIP B/OUA DIP B/O Lab Routine Hematuria, unspecified type Malignant neoplasm of prostate (HCC) Expected: 06/03/2022 (Approximate), Expires: 08/03/2022[facility] Work Phone: Comment on above:Expected: 06/03/2022 (Approximate), Expires: 08/03/2022Start: 45-10-5245BPIYHYM DIRECTIVE DISCUSSIONADVANCE DIRECTIVE DISCUSSIONKettering Health Washington Townshiptart: 69-45-8295BQTVDNEGAU ASSESSMENT DEPRESSION ASSESSMENTKettering Health Washington Townshiptart: 04-21-2022 End: 39-60-1038Qomkrjbk specific Ag [Mass/volume] in Serum or Plasma PSA/PROSTSPECAG DIAG Lab Routine Malignant neoplasm of prostate (HCC) Expected: 04/21/2022, Expires: 06/21/2022[facility] Work Phone: Comment on above:Expected: 04/21/2022, Expires: 06/21/2022Start: 03-27-2022 End: 41-60-2979TWR W Auto Differential panel - BloodCBC + DIFF Lab Routine Malignant neoplasm of prostate (HCC) Expected: 03/27/2022, Expires: 03/18/2023 [facility] Work Phone: Comment on above:Expected: 03/27/2022, Expires: 03/18/2023Start: 29-34-8420Lmglakmaa vaccinationINFLUENZA (#1)[facility] Start: 68-79-6151YXNFISF DIRECTIVE DISCUSSIONADVANCE DIRECTIVE DISCUSSION [facility]: 02-25-1625YKZNOUNSTE ASSESSMENTDEPRESSION ASSESSMENT [facility]: 43-40-3910YFRHK-19 VACCINE (3 - Booster for Moderna series)COVID-19 VACCINE (3 - Booster for Moderna series)[facility]: 44-86-5017YKUZY-19 VACCINE (3 - Booster for Moderna series)COVID-19 VACCINE (3 - Booster for Moderna series)[facility]: 94-67-7162KMIBQ-19 VACCINE (3 - Moderna series)COVID-19 VACCINE (3 - Moderna series)[facility]: 64-25-5969PRBWU-19 VACCINE (4 - Booster)COVID-19 VACCINE (4 - Booster)[facility]: 35-64-4240OGDXG-19 Vaccine (4 - Moderna series)COVID-19 Vaccine (4 - Moderna series)[facility]: 95-99-1765IFU High Risk: (Elderly (60+) or Population) (1 - 1-dose 75+ series)RSV High Risk: (Elderly (60+) or Population) (1 - 1-dose 75+ series)[facility]: 89-70-3339XTF Vaccine (1 - 1-dose 75+ series)RSV Vaccine (1 - 1-dose 75+ series)[facility]: 45-50-3498YJQ Vaccine (1 - 1-dose 60+ series)RSV Vaccine (1 - 1-dose 60+ series)[facility]: 13-36-7898Rgzxhstdy vaccinationLUNG CANCER SCREENINGK[facility]tering Health Washington Townshiptart: 18-81-2906Hzlufaasi for malignant neoplasm of lungLung Cancer ScreeningKettering Health Washington Townshiptart: 69-73-5333WHPOLFTT VACCINE (1 of 2)SHINGRIX VACCINE (1 of 2) [facility]: 02-96-5097Ipdejk Vaccines (1 of 2)Zoster Vaccines (1 of 2)[facility]: 96-44-8628PIZXWQQE SCREENDIABETES SCREENKettering Health Washington Townshiptart: 28-32-6218Nxwlcift ScreeningDiabetes Screening [facility]: 96-92-4795CTdK/Tdap/Td Vaccines (1 - Tdap)DTaP/Tdap/Td Vaccines (1 - Tdap)[facility]: 1964 Pneumococcal vaccinationPneumococcal Vaccine (1 of 2 - PCV)[facility]: 13-98-1907Cdvyjpspxtlz Vaccine: 50+ (1 of 2 - PCV) Pneumococcal Vaccine: 50+ (1 of 2 - PCV)[facility]: 1964 Pneumococcal Vaccine: 65+ Years (1 of 2 - PCV)Pneumococcal Vaccine: 65+ Years (1 of 2 - PCV)[facility]Start: 69-18-8799Yfifs microalbumin profileKettering Health Washington Townshiptart: 01-93-1807Ympuk screening for proteinCKD: Urine Protein Screening [facility]: 67-54-4751NBRIWP PCP TEAM CHRONIC DISEASE VISITANNUAL PCP TEAM CHRONIC DISEASE VISITKettering Health Washington Townshiptart: 47-54-2148Mvyhmpr ScreeningAnxiety ScreeningK[facility]tering Health [facility] Townshiptart: 1963 Creatinine measurementSerum CreatinineKettering Health Washington Townshiptart: 1963 Depression ScreeningDepression ScreeningK[facility]tering Health [facility] Townshiptart: 1963 HEPATITIS C SCREENINGHEPATITIS C SCREENINGK[facility]tering Health [facility] Townshiptart: 1963 Hepatitis C screeningHepatitis C ScreeningK[facility] Health [facility] Townshiptart: 92-68-0195GCMQO CREATININESERUM CREATININEGuernsey Memorial Hospitalrt: 60-08-3217Pspwp depression screening assessmentDEPRESSION SCREENINGK[facility]tering Health [facility] Townshiptart: 1951 Pneumococcal Vaccine: 65+ (1 - PCV)Pneumococcal Vaccine: 65+ (1 - PCV)[facility]: 02-43-6947Jhthsdslrtmj Vaccine: 65+ (1 of 2 - PCV)Pneumococcal Vaccine: 65+ (1 of 2 - PCV)[facility]: 03-75-4823Wqwruirpqgal Vaccine: 65+ Years (1 - PCV)Pneumococcal Vaccine: 65+ Years (1 - PCV)[facility] HospitalStlake charles: 29-88-7030Gtchnqehdwir Vaccine: 65+ Years (1 of 2 - PCV)Pneumococcal Vaccine: 65+ Years (1 of 2 - PCV)[facility] CenterStart: 27-13-6053DKASWXOPAYCB: 65+ (1 - PCV)PNEUMOCOCCAL: 65+ (1 - PCV)[facility] Start: 07-08-6728Jqiqb panelLipid PanelUnMemorial Health System Selby General HospitalStlake charles: 01-24-1946Medicare Annual Wellness VisitMedicare Annual Wellness Visit (AWV) [facility] HospitalCBC W Auto Differential panel - BloodCBC and differential Lab Routine Stage 3a chronic kidney disease (HCC) (CMS/HCC) Ordered: 07/13/2024[facility] Work Phone: Comment on above:Ordered: 07/13/2024omprehensive metabolic 2000 panel - Serum or PlasmaComprehensive metabolic panel Lab Routine Stage 3a chronic kidney disease (HCC) (CMS/HCC) Ordered: 07/13/2024[facility] HealthcareComment on above:Ordered: 07/13/2024T SIM PLANNING RADIATION ONCOLOGY CT SIM PLANNING RADIATION ONCOLOGY Radiology Routine Malignant neoplasm of prostate (HCC) Ordered: 03/03/2022[facility] Work Phone: Comment on above:Ordered: 03/03/2022 End: 28-32-3685Cde spinal canal lumbar w/o & w/contr matrlMRI LUMBAR SPINE WO/W IVCON Radiology Routine Spinal stenosis of lumbar region, unspecified whether neurogenic claudication present 1 Occurrences starting 11/19/[address] [place] [address] Work Phone: Comment on above:1 Occurrences starting 11/19/2022 until 12/19/2023 End: 93-15-6705Ein spinal canal lumbar w/o & w/contr matrlMRI LUMBAR SPINE WO/W IVCON Radiology Routine Spinal stenosis of lumbar region without neurogenic cl audication 1 Occurrences starting 11/21/[address] [place] [address] Work Phone: Comment on above:1 Occurrences starting 11/21/2022 until 12/21/2023 End: 46-76-4212Jjf spinal canal lumbar w/o & w/contr matrlMRI LUMBAR SPINE WO/W IVCON Radiology Routine Spinal stenosis of lumbar region, unspecified whether neurogenic claudication present 1 Occurrences starting 01/06/[address] [place] [address] Work Phone: Comment on above:1 Occurrences starting 01/06/2023 until 4Patient EducationOur [facility] Of [facility] Work Phone: Patient referralOur Lady Of Mercy Hospital [facility]tr Work Phone: Renal function 1999 panel - Serum or PlasmaScci Hospital LimaRenal function 1999 panel - Serum or [facility] HospitalRenal function 1999 panel - Serum or PlasmaFirelands Regional Medical CenterCleveland ClinicCleveland ClinicCleveland ClinicCleveland ClinicCleveland ClinicCleveland ClinicC[facility] Immunizations Immunization DateImmunizationNotesCare FfdtnnerOxlunpwl80-95-5058KJII-WxR-0 (COVID-19) mRNA-1273 vaccinePaharoldo JOHNSTON [facility] 01-118140-38-2421NENI-SwT-0 (COVID-19) mRNA-1273 vaccine Barbara JOHNSTON [facility] 01-194776-95-2709TCODH-14 mRNA-1273 (Moderna)MD Shaikh Storm Work Phone: [facility] Hospital LimaNEGATED: Highlighted row has not occurred!42-94-6119zndjcxxnu virus vaccine, unspecified formulation CLAIREPRABHAKAR JAMES [facility] Payers DatePayer CategoryPayerPolicy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 Unspecified essential hypertension Stage 3a chronic kidney disease (HCC) (CMS/HCC) Lumbar stenosis with neurogenic claudication Mixed hyperlipidemia (CMS/HCC) Mixed hyperlipidemia Elevated random blood glucose level Unintentional weight change Gastroesophageal reflux disease without esophagitis Esophageal reflux 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 CenterUwexngjqpr22-28-9703 History of Present illness Narrative* Nasir Ward [...] CHOLESTEROL mg/dL 16 CHOL/HDL RATIO <5.0 3.6 [facility] CKD: Follows with Nephrology. Avoid nephrotoxic agents. Monitor closely. Following with Pain Management for Lumbar Stenosis. Recently had surgery. Pt reports he recently had blood work done in January- nothing new in [employer]. Will request labs from Dr. Thakkar. Review [...] List Items Addressed This Visit HLD (hyperlipidemia) ([facility]) - Primary Currently taking Prvastatin 40mg Denies any myalgias. Continue current regimen. Hypertension ([facility]) Currently taking amlodipine, valsartan. Follows with Cardiology Does not check BP at home; Denies orthostatic changes, dizziness, cough, shortness of breath, swelling in extremities. Continue current regimen. Given BP log, advised pt to record BP and bring log back with them to next visit. Stage 3 chronic kidney disease (HCC) ([facility]) Follows with Nephrology. Avoid nephrotoxic agents. Monitor closely. documented in this encounterSt. [facility] Medical CenterAunysfkrhi18-34-7038 Hospital Discharge instructions Patient Education 04/18/2024 12:09:27 [...] Treatment for this condition includes: Antibiotic medicine. Ybpm-mut-hvieaoe medicines to treat discomfort. Drinking enough water [...] Follow these instructions at home: Medicines Take obvx-wuk-ylvbljx and prescription medicines only as told by [...] provider. Document Revised: 12/23/2020 Document Reviewed: 12/28/2020 [employer] Patient Education 2023 [facility]. Follow Up Care 09/18/2023 12:00:10 With:PRESTON MAK, Barbara Warner, URL Address: [facility] [address] [place] [address]- [phone] When: Unknown Comments:1 yr w/ PSA [facility] 11-18-2024 NotePatient Education Obstetrics and Gynecology Urinary [...] this condition includes: ??? Antibiotic medicine. ??? Afcd-yty-urpzxvx medicines to treat discomfort. ??? Drinking enough [...] these instructions at home: Medicines ??? Take calw-set-ctwctfb and prescription medicines only as told by [...] Make sure you di (more content not included)...[facility]09-19-2024 Telephone encounter Note* Telephone Encounter - Sugar Wellington MA - 02/18/2024 9:49 AM EDT [facility] [id number] Miscellaneous Notes* Telephone Encounter - Sugar Wellington MA - 02/18/2024 9:49 AM EDT Refill request from [facility] - documented in this encounterSt. Louis [facility] Medical CenterYapqvrdzop57-96-9699 Telephone encounter Note* Telephone Encounter - Sugar Wellington MA - 02/02/2024 11:29 AM EDT PT INTO OFFICE AND SAID ALL OTHER RXS WERE SENT IN FOR 90 DAY SUPPLIES BUT AMLODIPINE WASN'T SENT IN? CAN YOU SEND IN A BEFORE THURSDAY THEY ARE LEAVING OUT OF STATE FOR THREE MONTHS. -SCR [facility] CenterVodejsekag55-38-8942 Miscellaneous Notes* Telephone Encounter - Sugar Wellington MA - 02/02/2024 11:29 AM EDT PT INTO OFFICE AND SAID ALL OTHER RXS WERE SENT IN FOR 90 DAY SUPPLIES BUT AMLODIPINE WASN'T SENT IN? CAN YOU SEND IN A BEFORE THURSDAY THEY ARE LEAVING OUT OF STATE FOR THREE MONTHS. -SCR documented in this encounterSt. Louis VA Medical CenterQneyjncdlk29-65-8476 History of Present illness Narrative* Nasir Ward [...] PM EDTAssociated Problem(s): Coronary artery disease involving pamunkey coronary artery of pamunkey heart with out angina pectoris (CMS/HCC) Follows [...] Problem List Items Addressed This Visit Hypertension ([facility]/HCC) - Primary Taking Amlodipine and Valsartan Denies orthostatic changes Continue amlodipine and valsartan Stage 3 chronic kidney disease (HCC) (CMS/HCC) Follows Nephrology Dr. Thakkar CKD stage 3. Continue to monitor and avoid nephrotoxic agents. 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 Denies complaints. documented in this encounterSt. Louis VA Medical CenterHlffhmyodh26-91-9828 Instructions* Patient Instructions* Nasir Ward NP - 01/20/2024 6:00 PM EDT Referral sent to Dr. Bryant- Urology; They will call you! Call if you need anything! documented in this encounterSt. Louis VA Medical CenterEibtluhhni92-25-0501 Evaluation note* Diagnosis Prostate cancer (HCC)- Primary Malignant neoplasm of prostate Stage 3 chronic kidney disease, unspecified whether stage 3a or 3b CKD (HCC) documented [facility] encounter [facility] Nurse Note* Diane Parada LPN - 12/15/2023 2:36 PM EDT AUA= 13 [facility]07-[facility] Nurse Note* Diane Parada LPN - 12/15/2023 2:36 PM EDT AUA= 13 documented in this encounterMemorial Health System07-[facility]-2024 History of Present illness Narrative* Hyun Nazario MD - 12/15/2023 2:30 PM EDT Radiation Oncology - Follow Up Note PATIENT NAME: Yesenia Broussard PATIENT DIAGNOSIS: Prostate adenocarcinoma, initial PSA 9.95, biopsy [place] score 3 + 4 = 7 (grade [...] ASSESSMENT/PLAN: Prostate adenocarcinoma, initial PSA 9.95, biopsy [place] score 3 + 4 = 7 (grade [...] MD cc: Shaikh Dotty [address] [address] documented in this encounterMemorial Health System04-19-2024 Hospital Discharge instructions Patient Education 09/18/2023 11:40:21 [...] to keep your urine pale yellow. ?Take ewxt-sro-agcvzpk or prescription medicines. ?Eat foods that are high in fiber, such as beans, whole grains, and fresh fruits and vegetables. ?Limit foods that are high in fat and processed sugars, such as fried or sweet foods. General instructions Take hsjn-xoz-jdmmqnb and prescription medicines only as told by [...] the muscles that help control urination. Take jkhs-ywh-lopvwkt and prescription medicines only as told by your health care provider. Contact a health care provider if your symptoms do not improve or get worse. This information is not intended to replace advice given to you by your health care provider. Make sure you discuss any questions you have with your health care provider. Document Revised: 12/21/2020 Document Reviewed: 12/21/2020 [employer] Patient Education 2022 [facility]. Follow Up Care 07/07/2023 09:49:12 With:PRESTON MAK, Barbara Warner, URL Address: [address] [place] [id number]- When: Unknown [facility] 03-19-2024 History of Present illness Narrative* Chaim [...] his history are noted for prior inferior IL with revascularization of the RCA in [place] followed by bilateral carotid endarterectomies. More recently [...] normal. Judgment: Judgment normal. Allergies Ezetimibe and Esalkkb-imq-hlg reductase inhibitors Current Medications Current Outpatient Medications: [...] , Rfl: ergocalciferol (Vitamin D-2) 1.25 MG (87382 UT) capsule, Take 1 capsule (1,250 mcg) by mouth 1 (one) time per week., Disp: , Rfl: gabapentin (Neurontin) 100 mg capsule, Take 1 capsule (100 mg) by mouth 2 times a day., Disp: , Rfl: HYDROcodone-acetaminophen (Bricelyn) 7.5-325 mg tablet, Take 1 tablet by [...] Follow Up In Cardiology 4. History of IL (myocardial infarction) 5. BMI 28.0-28.9,adult 6. ASHD [...] exam, discussion and plan. documented in this [facility] Work Phone: 1(562) 883-317903-19-2024 Instructions* Patient Instructions* Shahla Foster MA - [...] time of your visit. documented in this encounterParkview [facility] Work Phone: 1(488) 909-185001-14-2024 NoteHNO ID: [id number] Author: KODI REYNOLDS MD Service: ? Author [...] pleasant 77-year-old male who recently moved from [place] to [place]. He reports longstanding history of back and [...] 0 0 0 PHQ- (more content not included)...[place] [id number] History of Present illness Narrative* Kodi Reynolds [...] pleasant 77-year-old male who recently moved from [place] to [place]. He reports longstanding history of back and [...] BICEPS TRICEPS DELTS Wrist Ext Wrist Flex Fire Regulator HI R 5 5 5 5 5 [...] activities? No Bert Harper documented in this encounterMemorial Health System01-12-2024 NoteHNO ID: [id number] Author: ?, ?, ? Service: ? Author [...] completing routine daily living activities? No Bert Ortega [facility]01-04-2024 History of Present illness Narrative * Chaim Grayson, DO - 06/04/2023 9:50 AM EST Cardiology Consultation- New Consult Reason for referral: 77-year-old gentleman seen in cardiology consultation at the request of primary care physician Dr. Storm, for further evaluation regarding chest discomfort. Patient moved from [place] to the local area approximately 2 years ago. He has a history of previous inferior IL in the mid with revascularization of the RCA in [place] followed by stroke with subsequent bilateral carotid [...] ischemia given his risk factors and previous IL and revascularization on follow-up thereafterwards HPI: Yesenia Renteria is a 77 y.o. male Past Medical History: He has a past medical history of Abnormal ECG (05-20-2023), Cancer ([facility]/HCC) (07/07/2021), Chronic kidney disease, Coronary artery disease, Hypertension, Myocardial infarction ([facility]/HCC) (10/30/1996), and Stroke ([facility]) (01/31/12). Surgical History: He has a past [...] Alcohol use: Not Currently Allergies: Ezetimibe and Bfofkvc-ovy-opt reductase inhibitors Current Medications: Current Outpatient Medications: [...] , Rfl: ergocalciferol (Vitamin D-2) 1.25 MG (76750 UT) capsule, Take 1 capsule (1,250 mcg) by mouth 1 (one) time per week., Disp: , Rfl: HYDROcodone-acetaminophen (Bricelyn) 7.5-325 mg tablet, Take 1 tablet by [...] signing my name below, Mary Ellen Yanez LPN, Scribe attest that this documentation has been prepared under the direction and in the presence of Kaya Grayson DO. documented in [facility]Park[facility] Work Phone: 1(916) 214-973101-04-2024 Instructions* Patient Instructions* Yunier Mathur MA - [...] time of your visit. documented in this encounterPark[facility] Work Phone: 1(907) 308-886701-04-2024 Evaluation note* Diagnosis Hypertension, unspecified type Stage 3 chronic kidney disease, unspecified whether stage 3a or 3b CKD (CMS/HCC) Mixed hyperlipidemia Bilateral carotid artery disease, unspecified type (CMS/HCC) Smoker Tobacco use disorder Chest pressure Other chest pain documented in this encounter [facility] Work Phone: 1(558) 912-649912-20-2023 Miscellaneous Notes* Telephone Encounter - Claire Koroma - 05/20/2023 9:14 AM EST Margaret- records were not sent, so we shouldn't have to call and cancel. * Telephone Encounter - Diane Parada LPN - 05/20/2023 9:08 AM EST Mrs. Broussard called stating they contacted one of Dexter's previous physicians at [facility] spine [facility] and he will arrange for Dexter to see [facility] neurosurgeon. Please cancel the referral to [facility] neurosurgeon perpatient request. Diane Parada RN * Telephone Encounter - Margaret Castle - 05/19/2023 2:11 PM EST Neelam when order is signed can you please send records to Dr Marvin at [facility] thank you! Facesheet in your box documented in this encounterMemorial Health System12-19-2023 Miscellaneous Notes* Telephone Encounter - Julianna Yuan RN - 05/19/2023 10:45 AM EST Patient is requesting referral to Surgeon. He looks like had MRI of Lumbar spine on 02/20/2023 but no images in system. We do have report. documented in this encounterMemorial Health System11-21-2023 Hospital Discharge instructions Patient Education [...] Follow these instructions at home: Medicines Take gtzp-neb-litossh and prescription medicines only as told by [...] provider. Document Revised: 08/14/2021 Document Reviewed: 08/14/2021 [employer] Patient Education 2022 [facility]. Follow Up Care 02/11/2023 15:24:55 With:CLAIRE JAMES PA-C, URL Address: [address] [place] [address]. [place] [address] [phone] When: Unknown [facility] 11-16-2023 Evaluation note* Encounter Date Diagnosis Assessment [...] in 6 months with repeat surveillance ABIs. [facility]* Encounter Date Diagnosis Assessment Notes [...] and possibly therapeutic intervention. He does have evidenceof severe PAD during the walking exercise test. [...] will schedule this in the near future. [facility] Other 09-20-2023 Evaluation note* Encounter Date Diagnosis Assessment Notes Treatment Notes Treatment Clinical Notes Jan, H/O carotid endarterectomy (ICD- 10 - Z98.890) Jan,ostoperative carotid endarterectomy surveillance, encounter for (ICD-10 - Z48.812)This patient is overdue for surveillance studies of his primarily repaired carotid arteries bilaterally. We will order a carotid duplex and see him back to go over those results in the near future. Jan,FHx: carotid endarterectomy (ICD-10 - Z82.49) Jan,AD (peripheral artery disease) (ICD-10 - I73.9) Jan,laudication of both lower extremities (ICD-10 - I73.9)This patient has had previous noninvasive arterial studies [...] once again all his questions were addressed. [facility] Other 09-13-2023 Hospital Discharge instructions Patient Education [...] urethra. Follow these instructions at home: Take tsmt-yfr-wjcdyoy and prescription medicines only as told by [...] provider. Document Revised: 12/04/2021 Document Reviewed: 12/04/2021 [employer] Patient Education 2022 [facility]. Follow Up Care 01/05/2023 13:14:43 With:CLAIRE JAMES PA-C, URL Address: [address] [place] [address] When:Within 8 Week(s) [facility] 08-22-2023 Miscellaneous Notes* Telephone Encounter - Constance [...] Team tab: Yes Patient appears on the [facility] Peer39 SW Report for a PHQ-9 score of [...] as appropriate. JENNIE Lange documented in this encounterMemorial Health System08-21-2023 History of Present illness Narrative* Jose Nichols DO - 01/19/2023 12:49 PM EDT Images from the original note were not included. [facility] [place] [facility] [...] lumbar decompression and partial [facility]ce[facility] L[facility] [place] . Now follows with Pain Management in [place], [place]. Received opinion from his son's spine surgeon Dr. Farias in [place]. After review of imaging he was offered L4-S1 ALIF with posterior L4-S1 robotic assisted fusion. Since they do not live in [place] he was recommended to seek consultation at [facility]. Pain is located midline and [...] spine interventions: -Lumbar procedures with [facility] Dr. Oliva. -RFA ordered following MBB #2 01/07/22 BL L2, L3, L4, L5 MBB - 95% relief same day 12/17/21 BL L2, L3, L4, L5 MBB - 90% relief x 1 hour, then 50% for a few hours -Lumbar injections in [place] prior to surgery. Had at least a few injections, including RFA, LESI, SIJ, he remembers one of the injections helping. Prior spine surgery: L4-5 Previously treated by: -[facility] -[facility] in [place], [place], Dr. Barbara Farias on 07/07/22 virtual [...] See below Social: Home life: Moved to [place] 2020. Litigation: No Workers' Compensation: No YELLOW [...] independently reviewed 11/26/21 MRI lumbar spine [facility]: The bones of the lumbar spine are [...] nerve root. 11/26/21 MRI prostate w/wo contrast, [facility]: Bones: No suspicious bony lesion. Normal appearing [...] 2023 TIME: 12:50 PM documented in this encounterMemorial Health System08-18-2023 Miscellaneous Notes* Telephone Encounter - Julianna Yuan RN - 01/16/2023 8:13 AM EDT Left message on voicemail for patient to call office back or to read [employer]. * Telephone Encounter - Julianna Yuan RN [...] calling: self Call patient at: at home [phone] (home) [phone] (cell) Was an appointment scheduled: No Closing statement: Results or non-symptom based questions: Thank you for calling [facility], your call will be returned within the next business day. Paul Cat documented in this encounterMemorial Health System08-08-2023 Miscellaneous Notes* Telephone Encounter - Livier Barrera RN - 01/06/2023 8:13 AM EDT Please sign pended new order for Lumbar Spine MRI as it needs to state that it needs to be done with anesthesia. Thank you Livier Barrera RN documented in this encounterMemorial Health System08-07-2023 Miscellaneous Notes* Telephone Encounter - Evelyn Chamberlain RN - 01/05/2023 4:52 PM EDT Spoke to patient's . Explained differences between anxiolysis and full anesthesia. Per patient's , patient needs full anesthesia-will not tolerate procedure with anxiolysis alone. Communicated to office that new order needs to be placed for MRI with anesthesia, and will need to be scheduled at [facility] [place]. documented in this encounterMemorial Health System07-05-2023 Hospital Discharge instructions Patient Education [...] to keep your urine pale yellow. ?Take mito-qmm-mfmohtv or prescription medicines. ?Eat foods that are high in fiber, such as beans, whole grains, and fresh fruits and vegetables. ?Limit foods that are high in fat and processed sugars, such as fried or sweet foods. General instructions Take gcto-vxy-amsuyzo and prescription medicines only as told by [...] the muscles that help control urination. Take fote-bru-lzpkjgm and prescription medicines only as told by your health care provider. Contact a health care provider if your symptoms do not improve or get worse. This information is not intended to replace advice given to you by your health care provider. Make sure you discuss any questions you have with your health care provider. Document Revised: 12/21/2020 Document Reviewed: 12/21/2020 [employer] Patient Education 2022 [facility]. Follow Up Care 10/28/2022 10:11:31 With:BRITNI ENCINAS, CLIARE Boswell, URL Address: [address] [place] [address] When:Within 5 Week(s) [facility] 06-23-2023 Miscellaneous Notes* Telephone Encounter - Kadi [...] completed. This can only be completed at [facility] & orders must be revised to reflect such. Thanks, Kadi Cotton * Telephone Encounter - Kadi Cotton - 11/18/2022 2:17 PM EDT Per [facility] Neurosurgery, a more recent MRI is required before scheduling the patient to be seen. They are requesting new MRI orders to be placed before completing consult. Kadi Cotton documented in this encounterMemorial Health System06-21-2023 History of Present illness Narrative* Elizabeth Freire [...] cancer. Elizabeth Freire APRN.CNP documented in this encounterMemorial Health System06-21-2023 Evaluation note* Diagnosis Prostate cancer (HCC) Malignant neoplasm of prostate Stage 3 chronic kidney disease, unspecified whether stage 3a or 3b CKD (HCC) documented in this encounter [facility]06-20-2023 Nurse Note* Nadja Guardado - 11/18/2022 2:34 PM EDT Clinical questionnaires incomplete due to Patient was roomed by provider documented in this encounterMemorial Health System06-20-2023 Nurse Note* Livier Barrera RN - 11/18/2022 1:32 PM EDT AUA 21 Livier Barrera RN documented in this encounterMemorial Health System06-20-2023 History of Present illness Narrative* G Jose [...] ASSESSMENT/PLAN: Prostate adenocarcinoma, initial PSA 9.95, biopsy [place] score 3 + 4 = 7 (grade [...] Nazario MD cc: Shaikh Dotty [address] [place] [address] documented in this encounterMemorial Health System01-06-2023 Miscellaneous Notes* Telephone Encounter - [...] call back. JENNIE Lange documented in this encounterMemorial Health System01-05-2023 Nurse Note* Kelly Hector - 06/05/2022 12:40 PM EST Back office UA test performed. Results entered in [employer] and doctor notified. Kelly Hector MA documented in this encounterMemorial Health System12-15-2022 Miscellaneous Notes* Telephone Encounter - Diane Parada LPN - 05/15/2022 1:51 PM EST Nena, pt's , notified to have Dexter complete the Cipro prescription and have urine rechecked in 2-3 weeks. Call transferred to [facility] to schedule lab appt. Dr. Nazario, please sign pended lab orders. Diane Parada LPN documented in this encounterMemorial Health System12-15-2022 NoteCONSULTATION CONSULTATION DATE: 05/15/2022 HISTORY [...] he has a son who lives in [place] with the same symptoms and gained relief after seeing a specialist and having surgery. Medications include Lyrica 75 mg t.i.d., Bricelyn 5/325 t.i.d. and baclofen 10 mg q.h.s. [...] are going to spend three months in [place] with his son in early July and he wishes to see the specialist out there. I told him we would continue to medically manage him, which he does agree to. Patient will call the office for an appointment upon return from [place].[facility] [id number] History of Present illness Narrative* STEPHANIE Lange - 04/30/2022 3:01 PM EST SOCIAL WORK FOLLOW UP NOTE: [facility] Date of service:04/30/22 TOPICS ADDRESSED: community resources PLAN: Continue follow up as needed Assigned SW listed in Care Team tab: Yes SW completed and faxed a mileage reimbursement log to [facility] for the month of April 2022. JENNIE Lange documented in this encounterMemorial Health System11-23-2022 History of Present illness Narrative* Hyun Nazario MD - 04/23/2022 12:00 AM EST [facility] Radiation Oncology Department RADIATION ONCOLOGY - [...] follow-up. Staff Physician Jose Nazario M.D. / WSKimmy 23:35 PM documented in this encounterMemorial Health System11-21-2022 History of Present illness Narrative* [...] treatment. Hyun Nazario MD documented in this encounterMemorial Health System11-14-2022 History of Present illness Narrative* Hyun Nazario MD - 04/14/2022 3:05 PM EST Radiation Oncology - On Treatment Review (OTR) Note PATIENT NAME: Yesenia Broussard PATIENT DIAGNOSIS: Prostate adenocarcinoma, initial PSA 9.95, biopsy [place] score 3 + 4 = 7 (grade [...] outlined. Hyun Nazario MD documented in this encounterMemorial Health System11-07-2022 History of Present illness Narrative* Hyun Nazario MD - 04/07/2022 11:03 AM EST Radiation Oncology - On Treatment Review (OTR) Note PATIENT NAME: Yesenia Broussard PATIENT DIAGNOSIS: Prostate adenocarcinoma, initial PSA 9.95, biopsy [place] score 3 + 4 = 7 (grade [...] outlined. Hyun Nazario MD documented in this encounterMemorial Health System10-31-2022 History of Present illness Narrative* Hyun Nazario MD - 03/31/2022 3:29 PM EDT Radiation Oncology - On Treatment Review (OTR) Note PATIENT NAME: Yesenia Broussard PATIENT DIAGNOSIS: Prostate adenocarcinoma, initial PSA 9.95, biopsy [place] score 3 + 4 = 7 (grade [...] outlined. Hyun Nazario MD documented in this [facility]10-31-2022 History of Present illness Narrative* STEPHANIE [...] March 2022. JENNIE Lange documented in this [facility]10-27-2022 Nurse Note* Livier Barrera RN - [...] assist. Livier Barrera RN documented in this encounterMemorial Health System10-24-2022 History of Present illness Narrative* Hyun Nazario MD - 03/24/2022 4:00 PM EDT Radiation Oncology - On Treatment Review (OTR) Note PATIENT NAME: Yesenia Broussard PATIENT DIAGNOSIS: Prostate adenocarcinoma, initial PSA 9.95, biopsy [place] score 3 + 4 = 7 (grade [...] outlined. Hyun Nazario MD documented in this encounterMemorial Health System10-18-2022 History of Present illness Narrative* Hyun Nazario MD - 03/18/2022 3:58 PM EDT Radiation Oncology - On Treatment Review (OTR) Note PATIENT NAME: Yesenia Broussard PATIENT DIAGNOSIS: Prostate adenocarcinoma, initial PSA 9.95, biopsy [place] score 3 + 4 = 7 (grade [...] prescribed. Hyun Nazario MD documented in this encounterMemorial Health System10-18-2022 Miscellaneous Notes* Telephone Encounter - Diane Parada LPN - 03/18/2022 8:31 AM EDT CBC order the second week during radiation is pending your approval. Diane Parada LPN documented in this encounterMemorial Health System10-13-2022 NoteCONSULTATION PROCEDURE DATE: 03/13/2022 PREOPERATIVE [...] the procedure well with no overt complications.[facility] [id number] NoteCONSULTATION CONSULTATION DATE: 03/13/2022 HISTORY OF PRESENT [...] current medications include Lyrica 75 mg t.i.d., Bricelyn 5/325 t.i. d., baclofen 10 mg q.h.s. [...] and will return in six weeks' time.[facility] [id number] History of Present illness Narrative* STEPHANIE Lange [...] as appropriate. JENNIE Lange documented in this encounterMemorial Health System10-12-2022 History of Present illness Narrative* Hyun Nazario MD - 03/12/2022 12:00 AM EDT YESENIA BROUSSARD [id number] 03/12/2022 [facility] Department of Radiation Oncology Treatment Planning [...] Nazario M.D. :57 PM documented in this encounterMemorial Health System10-04-2022 Miscellaneous Notes* Telephone Encounter - [...] as appropriate. JENNIE Lange documented in this encounterMemorial Health System10-03-2022 History of Present illness Narrative* Hyun Nazario MD - 03/03/2022 10:42 AM EDT Unable to complete simulation due to anxiety related to claustrophobia. Prescription for Valium given. We will reschedule. documented in this encounterMemorial Health System09-27-2022 Miscellaneous Notes* Telephone Encounter - Margaret Haas [...] Thanks Diane Parada LPN documented in this encounterMemorial Health System09-12-2022 Miscellaneous Notes* Telephone Encounter - Livier Cook - 02/10/2022 1:25 PM EDT Patient is scheduled and aware of his appt on 02/25/22 for sim * Telephone Encounter - Maddy Ravindra - 02/07/2022 10:22 AM EDT Pt called [...] Thanks Maddy Waite MA documented in this encounterMemorial Health System08-25-2022 NoteCONSULTATION CONSULTATION DATE: 01/23/2022 HISTORY [...] ice. Medications include baclofen 10 mg q.h.s., Bricelyn 5/325 t.i.d., Lyrica 75 mg b.i.d. Patient's [...] followed up in the clinic post procedure.[facility] HospitalNyugwift11-04-3542 Miscellaneous Notes* Telephone Encounter - Diane Parada [...] advise. Diane Parada LPN documented in this encounterMemorial Health System07-28-2022 NoteCONSULTATION CONSULTATION DATE: 12/26/2021 HISTORY [...] His medications include baclofen 10 mg q.h.s., Bricelyn 5/325 t.i.d. and Lyrica 50 mg b.i.d. [...] and he is in agreement to this.[facility] [id number] Nurse Note* Diane Parada LPN - 12/10/2021 9:20 AM EDT AUA= 10 documented in this encounterMemorial Health System07-12-2022 History of Present illness Narrative* Hyun Nazario MD - 12/10/2021 9:00 AM EDT Radiation Oncology - Prostate Cancer New Patient/Consult Note PATIENT NAME: Yesenia Broussard PATIENT REQUESTING PROVIDER: Dr. Johnston DIAGNOSIS: 76 year old male with prostate adenocarcinoma, initial PSA 9.95, biopsy [place] score 3 + 4 = 7 (grade [...] underwent TURP on 06/06/2021. Pathology demonstrating adenocarcinoma, [place] 7 (3+4), involving 21 to 30% of [...] ASSESSMENT/PLAN: Prostate adenocarcinoma, initial PSA 9.95, biopsy [place] score 3 + 4 = 7 (grade [...] MD cc: Shaikh Dotty [address] [place] [address] Barbara Johnston [address] [place] [address] documented in this encounterMemorial Health System06-06-2022 Evaluation + Plan note Diagnostic Tests Pending * PSA Total 11/04/21 [facility] 06-06-2022 Hospital Discharge instructions Patient Education 11/04/2021 [...] 05/18/2006 Document Revised: 02/04/2019 Document Reviewed: 04/17/2017 [employer] Patient Education 2020 [facility]. 11/04/2021 10:39:39 Benign Prostatic Hyperplasia Benign Prostatic [...] urethra. Follow these instructions at home: Take evmn-ste-jxanzsh and prescription medicines only as told by [...] 05/18/2006 Document Revised: 04/12/2019 Document Reviewed: 06/22/2017 [employer] Patient Education 2020 [employer] 11/04/2021 10:39:34 Prostate Cancer Prostate Cancer [...] who: Are older than age 65. Are -[place]. Are obese. Have a family history of [...] cells. Follow these instructions at home: Take kxop-fba-nyawmcq and prescription medicines only as told by [...] 05/18/2006 Document Revised: 04/30/2018 Document Reviewed: 01/26/2017 [employer] Patient Education 2020 [facility]. Follow Up Care 07/01/2021 09:43:21 With:PRESTON MAK, Barbara Warner, URL Address: [facility] [address], [place] [address] [phone] When: Unknown Comments:Will schedule MRI of prostate w/wo and Perineal prostate biopsy. [facility] 05-26-2022 Evaluation note* Encounter Date Diagnosis Assessment Notes Treatment Notes Treatment Clinical Notes September, Chronic kidney disease, stage II I (moderate) (ICD-10 - N18.30) Thanks for referring [...] to slow down the progression of CKD. 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 He appears to be euvolemic. Continue current hypertensive medication. September,econdary hyperparathyroidism (ICD-10 - N25.81)Calcium within normal limit. We will check PTH and vitamin D. September,yslipidemia (ICD-10 - E78.5)Continue statins. Monitor LFTs and lipid profile periodically. [facility] Other Evaluation + Plan note Future Appointments Appointment Date:01/06/2023 09:15:00 AM Scheduled Provider:CLAIRE JAMES PA-C Location:[facility] Appointment Type:URO Office Visit [facility] evaluation + Plan note Future Appointments Appointment Date:04/21/2023 08:30:00 AM Scheduled Provider:CLAIRE JAMES PA-C Location:[facility] Appointment Type:URO Office Visit [facility] evaluation + Plan note Future Appointments Appointment Date:07/07/2023 09:00:00 AM Scheduled Provider:CLAIRE JAMES PA-C Location:[facility] Appointment Type:URO Office Visit Diagnostic Tests Pending * Electrolyte Panel 04/21/23 [facility] evaluation + Plan note Future Appointments Appointment Date:07/07/2023 09:00:00 AM Scheduled Provider:CLAIRE JAMES PA-C Location:[facility] Appointment Type:URO Office Visit Diagnostic Tests Pending * [facility] Future App[facility]ments Appointment Date:04/01/2024 10:45:00 AM Scheduled Provider:Barbara JOHNSTON MD Location:[facility] Appointment Type:URO Office Visit Diagnostic Tests Pending * PSA Total 12/31/23 [facility] evaluation + Plan note Future Appointments Appointment Date:04/18/2024 12:45:00 PM Scheduled Provider:Barbara JOHNSTON MD Location:[facility] Appointment Type:URO Office Visit Diagnostic Tests Pending * Urine Culture 04/07/24 [facility] evaluation + Plan note Future Appointments Appointment Date:04/18/2024 12:45:00 PM Scheduled Provider:Barbara JOHNSTON MD Location:[facility] Appointment Type:URO Office Visit [facility] evaluation + Plan note Future Appointments Appointment Date:04/21/2025 10:15:00 AM Scheduled Provider:Barbara JOHNSTON MD Location:[facility] Appointment Type:URO Office Visit Diagnostic Tests Pending * PSA Total 04/18/[address] [facility] evaluation + Plan note Future Appointments Appointment Date:04/21/2025 10:15:00 AM Scheduled Provider:Barbara JOHNSTON MD Location:[facility] Appointment Type:URO Office Visit Diagnostic Tests Pending * Urine Culture 08/08/24 [facility] evaluation + Plan note Future Appointments Appointment Date:04/21/2025 10:15:00 AM Scheduled Provider:Barbara JOHNSTON MD Location:[facility] Appointment Type:URO Office Visit Diagnostic Tests Pending * Urine Culture 08/22/24 [facility] evaluation + Plan note Future Appointments Appointment Date:04/21/2025 10:15:00 AM Scheduled Provider:Barbara JOHNSTON MD Location:[facility] Appointment Type:URO Office Visit Diagnostic Tests Pending * Urine Cytology ([facility]) 08/29/24 [facility] evaluation note* Diagnosis Malignant neoplasm of prostate (HCC)- Primary Malignant neoplasm of prostate documented in this encounter [facility] note* Diagnosis Malignant neoplasm of prostate (HCC)- Primary Malignant neoplasm of prostate documented in this encounter [facility] note* Diagnosis Malignant neoplasm of prostate (HCC)- Primary Malignant neoplasm of prostate [facility]* Diagnosis Malignant neoplasm of prostate (HCC)- Primary Malignant neoplasm of prostate documented in this encounter [facility] note* Diagnosis Malignant neoplasm of prostate (HCC) Malignant neoplasm of prostate [facility]* Diagnosis Malignant neoplasm of prostate (HCC)- Primary Malignant neoplasm of prostate documented in this encounter [facility] note* Diagnosis Malignant neoplasm of prostate (HCC)- Primary Malignant neoplasm of prostate documented in this [facility]* Diagnosis Malignant neoplasm of prostate (HCC)- Primary Malignant neoplasm of prostate documented in this encounter [facility] noteNo assessment information [facility] Work Phone: Evaluation note* Diagnosis Hematuria, unspecified type- Primary Malignant neoplasm of prostate (HCC) Malignant neoplasm of prostate documented in this encounter [facility]* Diagnosis Urinary tract infection without hematuria, site unspecified- Primary documented in this encounter [facility] note* Diagnosis History of prostate cancer- Primary Personal history of malignant neoplasm of prostate Spinal arthritis Spondylosis of unspecified site without mention of myelopathy Spinal stenosis of lumbar region, unspecified whether neurogenic claudication present documented in this encounter [facility] note* Diagnosis Spinal stenosis of lumbar region without neurogenic claudication- Primary Spinal stenosis, lumbar region, without neurogenic claudication documented in this encounter [facility] note* Diagnosis Spinal stenosis of lumbar region, unspecified whether neurogenic claudication present- Primary documented in this encounter [facility] note* Diagnosis Spinal stenosis, lumbar region with neurogenic claudication- Primary Foraminal stenosis of lumbar region Spinal stenosis, lumbar region, without neurogenic claudication Peripheral artery disease (HCC) Peripheral vascular disease, unspecified Prostate cancer (HCC) Malignant neoplasm of prostate documented in this encounter [facility] noteNo InformationFolsom [employer] Other Evaluation note* Diagnosis Spinal stenosis, lumbar region with neurogenic claudication- Primary Foraminal stenosis of lumbar region Spinal stenosis, lumbar region, without neurogenic claudication documented in this encounter [facility] note* Diagnosis Spondylolisthesis of lumbar region- Primary Acquired spondylolisthesis [facility] Diagnosis Hypertension, unspecified type Mixed hyperlipidemia Bilateral carotid artery disease, unspecified type ([facility]/HCC) History of [place] (myocardial infarction) Old myocardial infarction BMI 28.0-28.9,adult ASHD (arteriosclerotic heart disease) Coronary atherosclerosis of unspecified type of vessel, pamunkey or graft PVD (peripheral vascular disease) (CMS/HCC) Unspecified peripheral vascular disease Smoker Tobacco use disorder Chest pain, unspecified type documented in this encounter [facility] Work Phone: Evaluation note* Diagnosis Onset Date Resolution Status Current every day smoker acutePAD (peripheral artery disease)[facility] Work Phone: Evaluation note* Diagnosis Onset Date Resolution Status Anemia of renal disease acuteCKD (chronic kidney disease) stage 3, GFR 30-59 ml/minacute [id number] hyperparathyroidismacuteUTI (urinary tract infection)[facility] Work Phone: Evaluation note* Diagnosis Primary hypertension (CMS/HCC)- Primary Unspecified essential hypertension Stage 3a chronic kidney disease (HCC) (CMS/HCC) Mixed hyperlipidemia (CMS/HCC) Mixed hyperlipidemia Claudication (CMS/[facility]) Unspecified peripheral vascular disease Peripheral vascular disease ([facility]/HCC) Unspecified peripheral vascular disease Bradycardia Other specified [...] neoplasm of prostate 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 (CMS/HCC) H/O prostate cancer Mixed hyperlipidemia (CMS/HCC) Mixed hyperlipidemia Chronic bilateral low back pain with bilateral sciatica 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 (CMS/HCC)- Primary PAD (peripheral artery disease) (CMS/HCC) Unspecified peripheral vascular disease Primary hypertension (CMS/HCC) Unspecified essential hypertension Stage 3a chronic kidney disease (HCC) (CMS/HCC) Lumbar stenosis with neurogenic claudication Mixed hyperlipidemia (CMS/HCC) Mixed hyperlipidemia Elevated random blood glucose level Unintentional weight change Gastroesophageal reflux disease without esophagitis Esophageal reflux 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 (CMS/HCC)- Primary Stage 3a chronic kidney disease (HCC) (CMS/HCC) Lumbar stenosis with neurogenic claudication Primary hypertension (CMS/HCC)- Primary Unspecified essential hypertension 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 (CMS/HCC) Stage 3a [...] disease (HCC) (CMS/HCC) documented in this encounter [facility]* Diagnosis Primary hypertension (CMS/HCC)- Primary Unspecified essential hypertension 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 (CMS/HCC) Stage 3a chronic kidney disease (HCC) (CMS/HCC) Gastroesophageal reflux disease without esophagitis Esophageal reflux Tobacco abuse Tobacco use disorder Prostate cancer (CMS/HCC) Malignant neoplasm of prostate Benign prostatic hyperplasia with lower urinary tract symptoms, symptom details unspecified documented in this encounter [facility]* Diagnosis Primary hypertension (CMS/HCC) Unspecified essential hypertension documented in this encounter [facility]* Diagnosis Onset Date Resolution Status Admit Date Anemia of renal disease acuteMarch 2024 10:35amCKD (chronic kidney disease) stage 3, GFR 30-59 ml/minacuteTri[facility] 2024 10:35amHypertensive chronic kidney disease with stage 1 through stage 4 chronic kiacuteMarch 2024 10:35amMicroscopic hematuriaacuteMarch 2024 10:35amSecondary hyperparathyroidismacuteMar 2024 10:35am [facility] Work Phone: Evaluation note* Diagnosis Mixed hyperlipidemia- Primary Bilateral carotid artery disease, unspecified type Hypertension, unspecified type BMI 28.0-28.9,adult Smoker Tobacco use disorder Prostate cancer (Multi) Malignant neoplasm of prostate Chronic kidney disease, stage 3b (Multi) ASHD (arteriosclerotic heart disease) Coronary atherosclerosis of unspecified type of vessel, pamunkey or graft PVD (peripheral vascular disease) ([facility]-HCC) Unspecified peripheral vascular disease documented in this encounter [facility] Work Phone: Evaluation note* Diagnosis Onset Date Resolution Status Admit Date Anemia of renal disease acuteSept2024 11:31amCKD (chronic kidney disease) stage 3, GFR 30-59 ml/minacuteSeptember 2024 11:31amHypertensive chronic kidney disease with stage 1 through stage 4 chronic kiacuteSept2024 11:31amMicroscopic hematuriaacuteSept2024 11:31amSecondary hyperparathyroidismacute Kelli 2024 11:31am [facility] Work Phone: History general Narrative - Reported* Type Description Date Medical History CKD (CHRONIC KIDNEY DISEASE) STA GE III Medical HistoryCLAUDICATIONMedical HistoryHYPERLIPIDEMIAMedical HistoryBPH Medical HistoryANXIETYMedical HistoryCORONARY ATHEROSCLEROSISMedical History PERIPHERAL ARTERIAL DISEASEMedical HistoryHYPERTENSIONMedical HistoryPROSTATE CANCERSurgical HistoryBILATERAL CAROTID [id number] History CORONARY STENT IN Surgical HistoryPROSTATE SURGERYHospitalization HistorySEE [facility]OVE [facility] Other History general Narrative - Reported* Type Description Date Medical History CKD (CHRONIC KIDNEY DISEASE) STA GE III Medical HistoryCLAUDICATIONMedical HistoryHYPERLIPIDEMIAMedical HistoryBPH Medical HistoryANXIETYMedical HistoryCORONARY ATHEROSCLEROSISMedical History PERIPHERAL ARTERIAL DISEASEMedical HistoryHYPERTENSIONMedical HistoryPROSTATE CANCERSurgical HistoryBILATERAL CAROTID [id number] History CORONARY STENT IN VWI1004Surgical HistoryPROSTATE SURGERYSurgical History ANGIOPLASTY Hospitalization HistorySEE ABOVE [employer] Other Hospital course Narrative No data available for this section [facility] Discharge instructions No data available for this section [facility] No data available for this section [facility] HospitalReason for referral (narrative)* Consultation (Routine) - AuthorizedSpecialtyDiagnoses / ProceduresReferred By Contact Referred To ContactCardiology Diagnoses Hypertension, unspecified type Mixed hyperlipidemia Bilateral carotid artery disease, unspecified type (CMS/HCC) Procedures Follow Up In Cardiology Chaim Grayson, DO [address] [facility] [address], [place] [id number] Chaim Grayson, DO [address] [place] [address] [address], [place] [phone] Referral IDStatusReasonStart DateExpiration DateVisits RequestedVisits [id number]/4/20241/3/202511 * Cardiovascular (Routine) - Pending ReviewSpecialtyDiagnoses / Procedures Referred By ContactReferred To Contact Diagnoses Mixed hyperlipidemia Bilateral carotid artery disease, unspecified type (CMS/HCC) Procedures ECG 12 Lead Chaim Grayson, [address] [place] [address] [address], [place] [phone] Referral IDStatusReasonStart DateExpiration DateVisits RequestedVisits [id number] Review * Consultation (Routine) - AuthorizedSpecialtyDiagnoses / ProceduresReferred By ContactReferred To ContactCardiology Diagnoses Hypertension, unspecified type Bilateral carotid artery disease, unspecified type (CMS/HCC) Procedures Follow Up In Cardiology Chaim Grayson, [address] [place] [address] [address], [place] [phone] Referral IDStatusReasonStart DateExpiration DateVisits RequestedVisits [id number]/4/20241/3/202511 * Cardiac Stress Testing (Routine) - Pending ReviewSpecialtyDiagnoses / ProceduresReferred By ContactReferred To ContactRadiology Diagnoses Hypertension, unspecified type Bilateral carotid artery disease, unspecified type (CMS/HCC) Chest pressure Procedures Nuclear Stress Test CHG MYOCARDIAL SPECT MULTIPLE STUDIES CHG MYOCARDIAL SPECT SINGLE STUDY AT REST OR STRESS Chaim Grayson DO [address] [facility] [address], [facility] [address] [place] [address] Referral IDStatusReasonStlake charles DateExpiration DateVisits RequestedVisits [id number] Review [facility] Work Phone: Reason for referral (narrative)* Consultation (Routine) - Pending ReviewSpecialtyDiagnoses / ProceduresReferred By Contact Referred To ContactUrology Diagnoses Prostate cancer (CMS/HCC) Benign prostatic hyperplasia with lower urinary tract symptoms, symptom details unspecified Procedures PA OFFICE/OUTPATIENT NEW HIGH MDM 60 MINUTES Nasir Ward NP [address] [place] [address] Travis Bryant MD [address] [place] [address] Referral IDStatusReasonStlake charles DateExpiration DateVisits RequestedVisits [id number] Review Specialty Services Required Scheduling Instructions Please include OV note from today and from Dr. Johnston office VLADIMIR Allen for referral (narrative)No reason for referral information [facility] Work Phone: Summary Purpose Family History No Family History Records Found Relationship Condition Age at Onset Recorded Date/T yudi father Parkinson's disease Unknown Diabetes mellitusUnknownNot SpecifiedHeart diseaseUnknown Relationship Condition Age at Onset Recorded Date/T yudi father Parkinson's disease Unknown Diabetes mellitusUnknownNot SpecifiedHeart diseaseUnknownfatherDeceasedUnknown Parkinson's diseaseUnknownNot SpecifiedHypertensionUnknownHeart diseaseUnknown Family history of mental disorderUnknownDeceasedUnknownnatural sonHeart disease Unknown Relationship Condition Age at Onset Recorded Date/T yudi father Parkinson's disease Unknown Diabetes mellitusUnknownmotherHeart diseaseUnknownfatherDeceasedUnknown Parkinson's diseaseUnknownmotherHypertensionUnknownHeart diseaseUnknownFamily history of mental disorderUnknownDeceasedUnknownsonHeart diseaseUnknown Relationship Condition Age at Onset Recorded Date/T yudi father Parkinson's disease Unknown Diabetes mellitusUnknownmotherHeart diseaseUnknownfatherDeceasedUnknown Parkinson's diseaseUnknownmotherHypertensionUnknownHeart diseaseUnknownDeceased UnknownsonHeart diseaseUnknown Advance Directives No Advanced Directives Records Found [...] Z85.46 6 MO F/U; PERI'S BOTH LEGS 11AReason for VisitCurrent every day smoker PAD (peripheral artery disease) Chief Complaint N18.30 I12.9 N25.81 E78.5 Chief Complaint N18.30 I12.9 N25.81 E78.5 RENAL 1 year follow upReason for VisitAnemia of renal disease CKD (chronic kidney disease) stage 3, GFR 30-59 ml/min [id number] Secondary hyperparathyroidism UTI (urinary tract infection) Chief [...] 11:31am Secondary hyperparathyroidism February 20, 2025 11:31am Chief Complaint Admit Date renal 6 month [...] 2025 10:51am Secondary hyperparathyroidism March 142024 10:51am Reason for Referral SpecialtyDiagnoses / ProceduresReferred By ContactReferred To Contact Diagnoses Bilateral carotid artery disease, unspecified type (CMS/HCC) History of [place] (myocardial infarction) ASHD (arteriosclerotic heart disease) PVD (peripheral vascular disease) (CMS/[facility]) Chest pain, unspecified type Procedures ECG 12 Lead Chaim Grayson, DO [address] [facility] [address], [address] [place] [address] Referral IDStatusReasonStart DateExpiration DateVisits RequestedVisits [id number]/19/20243/19/[id number] / Procedures Referred By ContactReferred To ContactCardiology Diagnoses Bilateral carotid artery disease, unspecified type (CMS/HCC) Procedures Follow Up In Cardiology Chaim Grayson, DO [address] [facility] [address], [address] [place] [phone] Chaim Grayson, DO [address] [facility] [address], [facility] [address] [place] [phone] Referral IDStatusReasonStart DateExpiration DateVisits RequestedVisits [id number]/19/20243/19/137679VoapjdyqcWmhefdiij / Procedures Referred By ContactReferred To [facility] Diagnoses Spondylolisthesis of lumbar region Procedures CONSULT TO [facility] ([facility]IN) OFFICE/OUTPATIENT [facility] 60 MINUTES Kodi Reynolds MD [address] [place] [address] Referral IDStatusReasonStart DateExpiration DateVisits RequestedVisits [id number] Review PCP Requested Referral /[id number] / ProceduresReferred By ContactReferred To Contact Diagnoses Spinal stenosis, lumbar region with neurogenic claudication Foraminal stenosis of lumbar region Procedures CONSULT TO SPINE SURGERY OFFICE/OUTPATIENT [facility] 60-74 MINUTES Jose Nichols DO [address] [place] [phone] Referral IDStatusReasonStart DateExpiration DateVisits RequestedVisits [id number] Review PCP Requested Referral /[id number] / ProceduresReferred By ContactReferred To ContactMR IMAGING Diagnoses Spinal stenosis of lumbar region, unspecified whether neurogenic claudication present Procedures MRI LUMBAR SPINE WO/W IVCON MRI SPINAL CANAL LUMBAR W/O & W/CONTR MATRL Hyun Nazario MD [address] [place] [address] [place] [address] Mr Imaging Referral IDStatusReasonStart DateExpiration DateVisits RequestedVisits [id number] Review Auto-Generated Referral /[id number] / ProceduresReferred By ContactReferred To ContactNeurosurgery Diagnoses Spinal arthritis Procedures CONSULT TO NEUROSURGERY OFFICE/OUTPATIENT [facility] 60-74 MINUTES Hyun Nazario MD [address] [place] [address] [place] [address] Referral IDStatusReasonStart DateExpiration DateVisits RequestedVisits [id number] Review PCP Requested Referral / Additional Source Comments (unrecognized sect ion and [...] section and content) DATE CREATED AUTHOR 06/12/2021 [facility] DATE CREATED AUTHOR AUTHOR'S ORGANIZ ATION 03/27/2022 [facility] DATE CREATED AUTHOR AUTHOR'S ORGANIZ ATION 11/07/2022 [facility] DATE CREATED AUTHOR AUTHOR'S ORGANIZ ATION 01/06/2023 [facility] DATE CREATED AUTHOR AUTHOR'S ORGANIZ ATION 06/16/2023 [facility] DATE CREATED AUTHOR AUTHOR'S ORGANIZ ATION 06/29/2023 [facility] DATE CREATED AUTHOR AUTHOR'S ORGANIZ ATION 08/17/2023 [facility] DATE CREATED AUTHOR AUTHOR'S ORGANIZ ATION 04/11/2024 [facility] DATE CREATED AUTHOR AUTHOR'S ORGANIZ ATION 04/21/2024 [facility] DATE CREATED AUTHOR AUTHOR'S ORGANIZ ATION 07/15/2024 [facility] DATE CREATED AUTHOR AUTHOR'S ORGANIZ ATION 08/15/2024 [facility] DATE CREATED AUTHOR AUTHOR'S ORGANIZ ATION 08/26/2024 [facility] DATE CREATED AUTHOR AUTHOR'S ORGANIZ ATION 08/30/2024 [facility] DATE CREATED AUTHOR AUTHOR'S ORGANIZ ATION 01/19/2025 [facility] DATE CREATED AUTHOR AUTHOR'S ORGANIZ ATION 02/21/2025 [facility] DATE CREATED AUTHOR AUTHOR'S ORGANIZ ATION 03/04/2025 [facility] DATE CREATED AUTHOR AUTHOR'S ORGANIZ ATION 03/06/2025 [facility] DATE CREATED AUTHOR AUTHOR'S ORGANIZ ATION 03/09/2025 [facility] DATE CREATED AUTHOR AUTHOR'S ORGANIZ ATION 03/16/2025 [facility] DATE CREATED AUTHOR AUTHOR'S ORGANIZ ATION 03/20/2025 [facility] REASON FOR VISIT (unrecogniz ed section and content) ReasonCommentsConsultReasonCommentsPatient UpdateReasonCommentsPatient Update AppointmentReasonOnset DateCommentsSimulation Request Form2Reason CommentsSocial Work ServicesReasonCommentsOrdersReasonCommentsRadiotherapy On- treatment VisitReasonCommentsPhlebotomyReasonCommentsResultsAppointmentReason CommentsProstate CancerReasonCommentsReferral InformationReasonCommentsPatient QuestionAppointmentReasonCommentsOrdersReasonCommentsOrdersAppointmentReason CommentsNew PatientLow Back PainSpecialtyDiagnoses / ProceduresReferred By ContactReferred To ContactNeurosurgery Diagnoses Spinal arthritis Procedures CONSULT TO NEUROSURGERY OFFICE/OUTPATIENT [facility] 60-74 MINUTES Hyun Nazario MD [address] [place] [address] [place] [address] Referral IDStatusReasonStart DateExpiration DateVisits RequestedVisits [id number] Review PCP Requested Referral /[id number]g ConfirmationReasonComments Establish CareFawwad pvd HTN abn ekgSpecialtyDiagnoses / ProceduresReferred By ContactReferred To Contact Diagnoses Mixed hyperlipidemia Bilateral carotid artery disease, unspecified type (CMS/HCC) Procedures ECG 12 Lead Chaim Grayson, [address] [facility] [address] [place] [phone] Referral IDStatusReasonStart DateExpiration DateVisits RequestedVisits [id number] [id number] Back PainNew Patient EvaluationNew PatientSpecialtyDiagnoses / ProceduresReferred By Contact Referred To ContactRadiology Diagnoses Hypertension, unspecified type Bilateral carotid artery disease, unspecified type (CMS/HCC) Chest pressure Procedures Nuclear Stress Test CHG MYOCARDIAL SPECT MULTIPLE STUDIES CHG MYOCARDIAL SPECT SINGLE STUDY AT REST OR STRESS Chaim Grayson, [address] [facility] [address], [place] [phone] Referral IDStatusReasonStart DateExpiration DateVisits RequestedVisits [id number]/4/20241/3/235129CkledtGcxaeyaqZibbxi-ry9boFblpflpcb Diagnoses / ProceduresReferred By ContactReferred To ContactCardiology Diagnoses Hypertension, unspecified type Mixed hyperlipidemia Bilateral carotid artery disease, unspecified type (CMS/HCC) Procedures Follow Up In Cardiology Chaim Grayson, [address] [facility] [address], [place] [phone] Chaim Grayson, [address] [facility] [address] [place], [place] [phone] Referral IDStatusReasonStart DateExpiration DateVisits RequestedVisits [id number]/4/86900/3/611631MqigbtXpmefruqJbzivbol Cancer SpecialtyDiagnoses / ProceduresReferred By ContactReferred To ContactRadiation Oncology / RADIATION ONCOLOGY Diagnoses Malignant neoplasm of prostate jeovany treating prostate Procedures SIMULATION [place] IMRT 28fractions Hyun Nazario MD [address] [place] [address] [place] [address] Hyun Nazario MD [address] [place] [address] [place] [address] Referral IDStatusReasonStart DateExpiration DateVisits RequestedVisits [id number]/27/20221/[id number] RefillReason Onset DateCommentsMed Urhsdy524ReasonOnset DateCommentsMed Refill 4ReasonCommentsFollow-upReasonCommentsAnnual Exam1y Follow up for Coronary Artery DiseaseSpecialtyDiagnoses / ProceduresReferred By Contact Referred To ContactCardiology Diagnoses Bilateral carotid artery disease, unspecified type Procedures Follow Up In Cardiology Chaim Grayson, DO [address] [facility] [address], [place] [phone] Phone: tel: fax: Chaim Grayson, DO [address] [facility] [address], [place] [phone] Phone: tel: fax: Referral IDStatusReasonStart DateExpiration DateVisits RequestedVisits [id number]/19/20243/513203KjrtoaKoauo DateCommentsMed Znuumk1809/12/2024ReasonCommentsProstate CancerFollow up Source Comments (unrecognize d section and content) In the event this informatio n is protected by the Federal Confidentiality of Alcohol and Drug Abuse Patient Records regulations: The Federal rules restrict any use of the information to criminally investigate or prosecute any alcohol or drug abuse patient.[facility] SystemIn the event this information is protected by the Federal Confidentiality of Alcohol and Drug Abuse Patient Records regulations: The Federal rules restrict any use of the information to criminally investigate or prosecute any alcohol or drug abuse patient.[facility] SystemIn the event this information is protected by the Federal Confidentiality of Alcohol and Drug Abuse Patient Records regulations: The Federal rules restrict any use of the information to criminally investigate or prosecute any alcohol or drug abuse patient.[facility] SystemIn the event this information is protected by the Federal Confidentiality of Alcohol and Drug Abuse Patient Records regulations: The Federal rules restrict any use of the information to criminally investigate or prosecute any alcohol or drug abuse patient.[facility] SystemIn the event this information is protected by the Federal Confidentiality of Alcohol and Drug Abuse Patient Records regulations: The Federal rules restrict any use of the information to criminally investigate or prosecute any alcohol or drug abuse patient.[facility] SystemIn the event this information is protected by the Federal Confidentiality of Alcohol and Drug Abuse Patient Records regulations: The Federal rules restrict any use of the information to criminally investigate or prosecute any alcohol or drug abuse patient.[facility] SystemIn the event this information is protected by the Federal Confidentiality of Alcohol and Drug Abuse Patient Records regulations: The Federal rules restrict any use of the information to criminally investigate or prosecute any alcohol or drug abuse patient.[facility] SystemIn the event this information is protected by the Federal Confidentiality of Alcohol and Drug Abuse Patient Records regulations: The Federal rules restrict any use of the information to criminally investigate or prosecute any alcohol or drug abuse patient.[facility] SystemIn the event this information is protected by the Federal Confidentiality of Alcohol and Drug Abuse Patient Records regulations: The Federal rules restrict any use of the information to criminally investigate or prosecute any alcohol or drug abuse patient.[facility] SystemIn the event this information is protected by the Federal Confidentiality of Alcohol and Drug Abuse Patient Records regulations: The Federal rules restrict any use of the information to criminally investigate or prosecute any alcohol or drug abuse patient.[facility] SystemIn the event this information is protected by the Federal Confidentiality of Alcohol and Drug Abuse Patient Records regulations: The Federal rules restrict any use of the information to criminally investigate or prosecute any alcohol or drug abuse patient.[facility] SystemIn the event this information is protected by the Federal Confidentiality of Alcohol and Drug Abuse Patient Records regulations: The Federal rules restrict any use of the information to criminally investigate or prosecute any alcohol or drug abuse patient.[facility] SystemIn the event this information is protected by the Federal Confidentiality of Alcohol and Drug Abuse Patient Records regulations: The Federal rules restrict any use of the information to criminally investigate or prosecute any alcohol or drug abuse patient.[facility] SystemIn the event this information is protected by the Federal Confidentiality of Alcohol and Drug Abuse Patient Records regulations: The Federal rules restrict any use of the information to criminally investigate or prosecute any alcohol or drug abuse patient.[facility] SystemIn the event this information is protected by the Federal Confidentiality of Alcohol and Drug Abuse Patient Records regulations: The Federal rules restrict any use of the information to criminally investigate or prosecute any alcohol or drug abuse patient.[facility] SystemIn the event this information is protected by the Federal Confidentiality of Alcohol and Drug Abuse Patient Records regulations: The Federal rules restrict any use of the information to criminally investigate or prosecute any alcohol or drug abuse patient.[facility] SystemIn the event this information is protected by the Federal Confidentiality of Alcohol and Drug Abuse Patient Records regulations: The Federal rules restrict any use of the information to criminally investigate or prosecute any alcohol or drug abuse patient.[facility] SystemIn the event this information is protected by the Federal Confidentiality of Alcohol and Drug Abuse Patient Records regulations: The Federal rules restrict any use of the information to criminally investigate or prosecute any alcohol or drug abuse patient.[facility] SystemIn the event this information is protected by the Federal Confidentiality of Alcohol and Drug Abuse Patient Records regulations: The Federal rules restrict any use of the information to criminally investigate or prosecute any alcohol or drug abuse patient.[facility] SystemIn the event this information is protected by the Federal Confidentiality of Alcohol and Drug Abuse Patient Records regulations: The Federal rules restrict any use of the information to criminally investigate or prosecute any alcohol or drug abuse patient.[facility] SystemIn the event this information is protected by the Federal Confidentiality of Alcohol and Drug Abuse Patient Records regulations: The Federal rules restrict any use of the information to criminally investigate or prosecute any alcohol or drug abuse patient.[facility] SystemIn the event this information is protected by the Federal Confidentiality of Alcohol and Drug Abuse Patient Records regulations: The Federal rules restrict any use of the information to criminally investigate or prosecute any alcohol or drug abuse patient.[facility] SystemIn the event this information is protected by the Federal Confidentiality of Alcohol and Drug Abuse Patient Records regulations: The Federal rules restrict any use of the information to criminally investigate or prosecute any alcohol or drug abuse patient.[facility] SystemIn the event this information is protected by the Federal Confidentiality of Alcohol and Drug Abuse Patient Records regulations: The Federal rules restrict any use of the information to criminally investigate or prosecute any alcohol or drug abuse patient.[facility] SystemIn the event this information is protected by the Federal Confidentiality of Alcohol and Drug Abuse Patient Records regulations: The Federal rules restrict any use of the information to criminally investigate or prosecute any alcohol or drug abuse patient.[facility] SystemIn the event this information is protected by the Federal Confidentiality of Alcohol and Drug Abuse Patient Records regulations: The Federal rules restrict any use of the information to criminally investigate or prosecute any alcohol or drug abuse patient.[facility] SystemIn the event this information is protected by the Federal Confidentiality of Alcohol and Drug Abuse Patient Records regulations: The Federal rules restrict any use of the information to criminally investigate or prosecute any alcohol or drug abuse patient.[facility] SystemIn the event this information is protected by the Federal Confidentiality of Alcohol and Drug Abuse Patient Records regulations: The Federal rules restrict any use of the information to criminally investigate or prosecute any alcohol or drug abuse patient.[facility] SystemIn the event this information is protected by the Federal Confidentiality of Alcohol and Drug Abuse Patient Records regulations: The Federal rules restrict any use of the information to criminally investigate or prosecute any alcohol or drug abuse patient.[facility] SystemIn the event this information is protected by the Federal Confidentiality of Alcohol and Drug Abuse Patient Records regulations: The Federal rules restrict any use of the information to criminally investigate or prosecute any alcohol or drug abuse patient.[facility] SystemIn the event this information is protected by the Federal Confidentiality of Alcohol and Drug Abuse Patient Records regulations: The Federal rules restrict any use of the information to criminally investigate or prosecute any alcohol or drug abuse patient.[facility] SystemIn the event this information is protected by the Federal Confidentiality of Alcohol and Drug Abuse Patient Records regulations: The Federal rules restrict any use of the information to criminally investigate or prosecute any alcohol or drug abuse patient.[facility] SystemIn the event this information is protected by the Federal Confidentiality of Alcohol and Drug Abuse Patient Records regulations: The Federal rules restrict any use of the information to criminally investigate or prosecute any alcohol or drug abuse patient.[facility] SystemIn the event this information is protected by the Federal Confidentiality of Alcohol and Drug Abuse Patient Records regulations: The Federal rules restrict any use of the information to criminally investigate or prosecute any alcohol or drug abuse patient.[facility] SystemIn the event this information is protected by the Federal Confidentiality of Alcohol and Drug Abuse Patient Records regulations: The Federal rules restrict any use of the information to criminally investigate or prosecute any alcohol or drug abuse patient.[facility] SystemIn the event this information is protected by the Federal Confidentiality of Alcohol and Drug Abuse Patient Records regulations: The Federal rules restrict any use of the information to criminally investigate or prosecute any alcohol or drug abuse patient.[facility] Care Teams (unrecognized sec tion and content) Team Status: Active Member Role Status Dates Brian Avalos MD Primary Care Provider Active Team Status: Active Member Role Status Dates Brian Avalos MD Primary Care Provider Active S tart: February 13, 2025 Qasim Cueva ProviderActiveStart: February 13, 2025 Team Status: Inactive Member Role Status Dates Brian Avalos MD Primary Care Provider Active S tart: February 20, 2025 End: February 20bdQasim Quigley ProviderActiveStart: February 20, 2025 End: February 20, 2025 Team Status: Active Member Role Status Dates Shaikh Dotty MD Primary Care Provider Active Team Status: Active Member Role Status Dates Shaikh Dotty MD Primary Care Provider Active Start: September 15, 2023 Nicki Sierra CMAAttcharly ProviderActiveStart: September 15, 2023 Team Status: Inactive Member Role Status Dates Shaikh Dotty MD Primary Care Provide r, Attending Provider Active Start: October 01, 2023 End: September 30JENNY De Leoneferring ProviderActiveStart: October 01, 2023 End: October 01, 2023 Team Status: Inactive Member Role Status Dates Shaikh Dotty MD Primary Care Provider, Other Provid er Active Loco Ferrera NP-CAttending ProviderActiveTeam MemberRelationshipSpecialtyStart DateEnd Date Shaikh Storm MD [address] [place] [address] PCP - GeneralPrimary Care12/06/21 Barbara Johnston MD [address] [place] [address] ReferringUrology12/06/21Team MemberRelationshipSpecialtyStart DateEnd Date Shaikh Storm MD [address] [place] [address] PCP - GeneralPrimary Care12/06/21 Barbara Johnston MD [address] [place] [address] ReferringUrology12/06/21Team MemberRelationshipSpecialtyStart DateEnd Date Shaikh Storm MD [address] [place] [address] PCP - GeneralPrimary Care12/06/21 Barbara Johnston MD [address] [place] [address] ReferringUrology12/06/21Team MemberRelationshipSpecialtyStart DateEnd Date Shaikh Storm MD [address] [place] [address] PCP - GeneralPrimary Care12/06/21 Barbara Johnston MD [address] [place] [address] ReferringUrology12/06/21Team MemberRelationshipSpecialtyStart DateEnd Date Shaikh Storm MD [address] [place] [address] PCP - GeneralPrimary Care12/06/21 Barbara Johnston MD [address] [place] [address] ReferringUrology12/06/21 Constance Durand, [facility] Social Llshmj94/4/22Team MemberRelationshipSpecialtyStart DateEnd Date Shaikh Storm MD [address] [place] [address] PCP - GeneralPrimary Care12/06/21 Barbara Johnston MD [address] [place] [address] ReferringUrology12/06/21 Constance Durand, [facility] Social Gqatni43/4/22Team MemberRelationshipSpecialtyStart DateEnd Date Shaikh Storm MD [address] [place] [address] PCP - GeneralPrimary Care12/06/21 Barbara Johnston MD [address] [place] [address] ReferringUrology12/06/21 Constance Durand, [facility] Social Jcqbvz74/4/22Team MemberRelationshipSpecialtyStart DateEnd Date Shaikh Storm MD [address] [place] [address] PCP - GeneralPrimary Care12/06/21 Barbara Johnston MD [address] [place] [address] ReferringUrology12/06/21 Constance Durand, [facility] Social Dddjvb78/4/22Team MemberRelationshipSpecialtyStart DateEnd Date Shaikh Storm MD [address] [place] [address] PCP - GeneralPrimary Care12/06/21 Barbara Johnston MD [address] [place] [address] ReferringUrology12/06/21 Constance Durand, [facility] Social Odwcdq40/4/22Team MemberRelationshipSpecialtyStart DateEnd Date Shaikh Storm MD [address] [place] [address] PCP - GeneralPrimary Care12/06/21 Barbara Johnston MD [address] [place] [address] ReferringUrology12/06/21 Constance Durand, [facility] Social Jwbbeq03/4/22Team MemberRelationshipSpecialtyStart DateEnd Date Shaikh Storm MD [address] [place] [address] PCP - GeneralPrimary Care12/06/21 Barbara Johnston MD [address] [place] [address] ReferringUrology12/06/21 Constance DurandFORMERLY [facility] Social Ngcdqq39/4/22Team MemberRelationshipSpecialtyStart DateEnd Date Shaikh Storm MD [address] [place] [address] PCP - GeneralPrimary Care12/06/21 Barbara Johnston MD [address] [place] [address] ReferringUrology12/06/21 Constance Durand, [facility] Social Veuxfm37/4/22Team MemberRelationshipSpecialtyStart DateEnd Date Shaikh Storm MD [address] [place] [address] PCP - GeneralPrimary Care12/06/21 Barbara Johnston MD [address] [place] [address] ReferringUrology12/06/21 Constance Durand, [facility] Social Xqqloe78/4/22Team MemberRelationshipSpecialtyStart DateEnd Date Shaikh Storm MD [address] [place] [address] PCP - GeneralPrimary Care12/06/21 Barbara Johnston MD [address] [place] [address] ReferringUrology12/06/21 Constance Durand, [facility] Social Xlqreo94/4/22Team MemberRelationshipSpecialtyStart DateEnd Date Shaikh Storm MD [address] [place] [address] PCP - GeneralPrimary Care12/06/21 Barbara Johnston MD [address] [place] [address] ReferringUrology12/06/21 Constance DurandFORMERLY [facility] Social Xyoacz92/4/22 Team Status: Inactive Member Role Status Dates Shaikh Dotty MD Primary Care Provider Active Zeinab Justice MDAt[facility] ProviderActiveTeam MemberRelationshipSpecialtyStart DateEnd Date Shaikh Storm MD [address] [place] [address] PCP - GeneralPrimary Care12/06/21 Barbara Johnston MD [address] [place] [address] ReferringUrology12/06/21 Constance Durand, [facility] Social Mmxgeg78/4/22 Team Status: Inactive Member Role Status Dates Shaikh Dotty MD Primary Care Provider Active Lyla Nazario MDAttecu [facility] ProviderActiveTeam MemberRelationshipSpecialty Start DateEnd Date Shaikh Storm MD [address] [place] [address] PCP - GeneralPrimary Care12/06/21 Barbara Johnston MD [address] [place] [address] ReferringUrology12/06/21 Constance Durand, [facility] Social Rzyenk42/4/22Team MemberRelationshipSpecialtyStart DateEnd Date Shaikh Storm MD [address] [place] [address] PCP - GeneralPrimary Care12/06/21 Barbara Johnston MD [address] [place] [address] ReferringUrology12/06/21 Constance Durand, [facility] Social Tckauw02/4/22Team MemberRelationshipSpecialtyStart DateEnd Date Shaikh Storm MD [address] [place] [address] PCP - GeneralPrimary Care12/06/21 Barbara Johnston MD [address] [place] [address] ReferringUrology12/06/21 Constance Durand, [facility] Social Zalcbm68/4/22Team MemberRelationshipSpecialtyStart DateEnd Date Shaikh Storm MD [address] [place] [address] PCP - GeneralPrimary Care12/06/21 Barbara Johnston MD [address] [place], [place] [address] ReferringUrology12/06/21 Constance Durand, [facility] Social Ktsdzz83/4/22Team MemberRelationshipSpecialtyStart DateEnd Date Shaikh Storm MD [address] [place] [address] PCP - GeneralPrimary Care12/06/21 Barbara Johnston MD [address] [place], [place] [address] ReferringUrology12/06/21 Constance Durand, [facility] Social Qqlnev80/4/22Te MemberRelationshipSpecialtyStart DateEnd Date Shaikh Storm MD [address] [place] [address] PCP - GeneralPrimary Care12/06/21 Barbara Johnston MD [address] [place] [address] ReferringUrology12/06/21 Constance DurandFORMERLY [facility] Social Chjyox90/4/22Team MemberRelationshipSpecialtyStart DateEnd Date Shaikh Storm MD [address] [place] [address] PCP - GeneralPrimary Care12/06/21 Barbara Johnston MD [address] [place], [place] [address] ReferringUrology12/06/21 Constance Durand, RE[employer]ING DEVELOPER Social Bzeskm38/4/22Team MemberRelationshipSpecialtyStart DateEnd Date Shaikh Storm MD [address] [place] [address] PCP - GeneralPrimary Care12/06/21 Barbara Johnston MD [address] [place] [address] ReferringUrology12/06/21 Constance Durand, [facility] Social Imdbpn24/4/22Team MemberRelationshipSpecialtyStart DateEnd Date Shaikh Storm MD [address] [place] [address] PCP - GeneralPrimary Care12/06/21 Barbara Johnston MD [address] [place], [place] [address] ReferringUrology12/06/21 Constance Durand, [facility] Social Icfbat60/4/22 Team Status: Inactive Member Role Status Dates Shaikh Dotty MD Primary Care Provider Active Temporary AnesthesiologistAttending ProviderActiveTeam MemberRelationship SpecialtyStart DateEnd Date Shaikh Storm MD [address] [place] [address] PCP - GeneralPrimary Care12/06/21 Barbara Johnston MD [address] [place] [address] ReferringUrology12/06/21 Constance Durand, [facility] Social Xtxzoz21/4/22 Team Status: Inactive Member Role Status Dates Shaikh Dotty MD Primary Care Provider Active Jose Martin Mchugh MDAttending ProviderActive Team Status: Inactive Member Role Status Dates Shaikh Dotty MD Primary Care Provider Active Qasim Cueva ProviderActiveTeam MemberRelationshipSpecialtyStart DateEnd Date Shaikh Storm MD [address] [place] [address] PCP - GeneralPrimary Care12/06/21 Barbara Johnston MD [address] [place] [address] ReferringUrology12/06/21 Constance Durand, [facility] Social Wckuvs91/4/22Team MemberRelationshipSpecialtyStart DateEnd Date Shaikh Storm MD [address] [address] PCP - GeneralPrimary Care12/06/21 Barbara Johnston MD [address] [place] [address] ReferringUrology12/06/21 Constance Durand, [facility] Social Ybudcj61/4/22 Team Status: Inactive Member Role Status Dates Shaikh Dotty MD Primary Care Provider, Attending Pr ovider Active Team MemberRelationshipSpecialtyStart DateEnd Date Shaikh Storm MD [address] [place] [address] PCP - GeneralInternal Medicine06/04/23Team MemberRelationshipSpecialtyStart Date End Date Shaikh Storm MD [address] [place] [address] PCP - GeneralPrimary Care12/06/21 Barbara Johnston MD [address] [place] [address] ReferringUrology12/06/21 Constance Durand LSW Social Esfywu66/4/22Team MemberRelationshipSpecialtyStart DateEnd Date Shaikh Storm MD [address] [place] [address] PCP - GeneralInternal Medicine06/04/23Team MemberRelationshipSpecialtyStart Date End Date Shaikh Storm MD [address] [place] [address] PCP - GeneralInternal Medicine06/04/23Team MemberRelationshipSpecialtyStart Date End Date Shaikh Storm MD PCP - GeneralInternal Medicine06/04/23 Team Status: Inactive Member Role Status Dates Shaikh Dotty MD Primary Care Provider Active Start: October 15, 2023 End: October 15, 2023Bonnie Tan FINANCIAL LEGAL ASSISTANT-CAttending ProviderActiveStart: October 15, 2023 End: October 15, 2023Team MemberRelationshipSpecialtyStart DateEnd Date Shaikh Storm MD [address] [place] [address] PCP - GeneralPrimary Care12/06/21 Barbara Johnston MD [address] [place] [address] ReferringUrology12/06/21 Constance Durand LSW Social Rsafvz21/4/22Team MemberRelationshipSpecialtyStart DateEnd Date Shaikh Storm MD [address] [place] [place] [address] PCP - GeneralPrimary Care12/06/21 Barbara Johnston MD [address] [place] [address] ReferringUrology12/06/21 Constance Durand LSW Social Dcvuwl89/4/22 Team Status: Active Member Role Status Dates PHYSICIAN NO FAMILY Primary Care Provider Active Team Status: Inactive Member Role Status Dates PHYSICIAN NO FAMILY Primary Care Provider Active Start: February 25, 2024 End: February 24bob Thakkar MDAttending ProviderActiveStart: February 25, 2024 End: February 25, 2024 Team Status: Inactive Member Role Status Dates Theo Thakkar MD Attending Provider Active Start : February 29, 2024 End: February 28HYSICIAN NO FAMILYPrimary Care ProviderActiveStart: February 29, 2024 End: February 29, 2024Team MemberRelationshipSpecialtyStart DateEnd Date Brian Avalos MD [address] [place] [address] PCP - GeneralFamily Medicine01/12/24 Nasir Ward NP [address] [place] [address] Nurse PractitionerFamily Medicine01/12/24Team MemberRelationshipSpecialtyStart DateEnd Date Brian Avalos MD [address] [place] [address] [facility] - [facility]/24 Nasir Ward NP [address] [place], [place] [address] Nurse PractitionerP[facility]01/12/24Team MemberRelationshipSpecialtyStart DateEnd Date Brian Avalos MD [address] [place] [address] PCP - [facility]01/12/24 Nasir Ward NP [address] [place], [place] [address] Nurse PractitionerPiedmont [facility]01/12/24Team MemberRelationshipSpecialtyStart DateEnd Date Brian Avalos MD [address] [place] [address] PCP - [facility]01/12/24 Nasir Ward NP [address] [place] [address] Nurse PractitionerP[facility]01/12/24Team MemberRelationshipSpecialtyStart DateEnd Date Brian Avalos MD [address] [place] [address] PCP - [facility]01/12/24 Nasir Ward NP [address] [place] [address] Nurse PractitionerPied[facility]01/12/24Team MemberRelationshipSpecialtyStart DateEnd Date Brian Avalos MD [address] [place] [address] PCP - [facility]01/12/24 Nasir Ward NP [address] [place] [address] Nurse PractitionerP[facility]01/12/24Team MemberRelationshipSpecialtyStart DateEnd Date Brian Avalos MD [address] [place] [address] PCP - [facility]01/12/24 Nasir Ward NP [address] [place] [address] Nurse PractitionerPiedmont [facility]01/12/24 Team Status: Inactive Member Role Status Dates Brian Avalos MD Primary Care Provider Active S tart: July 14, 2024 End: July 14, 2024DeMEHRDAD Johnston[facility]manuela ProviderActiveStart: July 14, 2024 End: July 14, 2024 Team Status: Inactive Member Role Status Dates Brian Avalos MD Primary Care Provider Active S tart: August 10, 2024 End: August 10Qasim Kyle ProviderActiveStart: August 10, 2024 End: August 10, 2024 Team Status: Inactive Member Role Status Dates Theo Thakkar MD Attending Provider Active Start : August 15, 2024 End: August 15, 2024Marc Naderer , MDPrimary Care ProviderActiveStart: August 15, 2024 End: August 15, 2024Team MemberRelationshipSpecialtyStart DateEnd Date Shaikh Storm MD PCP - GeneralInternal Medicine06/04/23Team MemberRelationshipSpecialtyStart Date End Date Brian Avalos MD [address] [address] [facility] - [facility]01/12/24 Nasir Ward NP [address] [address] Nurse PractitionerAusten Riggs Center Medicine01/12/24Team MemberRelationshipSpecialtyStart DateEnd Date Brian Avalos MD [address] [place] [address] [facility]CP - [facility]01/12/24 Nasir Ward NP [address] [place] [id number] Nurse PractitionerPiedmont Mcduffie01/12/24Team MemberRelationshipSpecialtyStart DateEnd Date Shaikh Storm MD [address] [address] PCP - GeneralPrimary Care12/06/21 Barbara Johnston MD [address] [address] ReferringUrology12/06/21 Constance Durand LSW Social Orvuqk29/4/22Team MemberRelationshipSpecialtyStart DateEnd Date Brian Avalos MD [facility] - [facility]01/12/24 Nasir Ward NP Nurse PractitionerAusten Riggs Center Medicine01/12/24 Team Status: Active Member Role Status Dates Lucinda Nuñez DO Primary Care Provider Active Team Status: Active Member Role Status Dates Brian Avalos MD Primary Care Provider Active S tart: March 02, 2025 Qasim Saavedra ProviderActiveStart: March 02, 2025 Team Status: Active Member Role Status Dates Brian Avalos MD Primary Care Provider Active S tart: March 13, 2025 Qasim Saavedra ProviderActiveStart: March 13, 2025 Team Status: Inactive Member Role Status Dates Lucinda Nuñez DO Primary Care Provider Active S tart: March 14, 2025 End: March 14, 2025Lucinda Nuñez DOAttcharly ProviderActiveStart: March 14, 2025 End: March 14, 2025 Goals (unrecognized section and content) Goals [...] BE BASED ON THE PRIMARY CLINICAL RECORDS. [employer] [facility]. provides no warranty or guarantee of the accuracy or completeness of information in this document.
--- OUTSIDE RECORDS SUMMARY | 2025-03-23 06:58 | XMS_ITS | Encounter Summary ---
Author Organization [facility] Address [address] [place] [address] Phone Care Team Providers Care Egg Grader Name Role Phone Shaikh AUBREE Storm Primary Care Provider [phone] Reason for Visit * ReasonOnset DateCommentsPre-op Fefubvztb86/09/2025med hold03/09/2025 Encounter Details DateTypeDepartmentCare Team (Latest Contact Info)Kdlesrkfbci25/09/2025Telephone [place] [address] [address] [address] Lissy Kirkpatrick LPN Pre-op Clearance; med hold Social History Tobacco UseTypesPacks/DayYears UsedDateSmoking Tobacco: Every DayCigarettes0.560 Smokeless Tobacco: Never Comments:Trying to quit Alcohol UseStandard Drinks/WeekCommentsNever0 (1 standard drink = 0.6 oz pure alcohol)Sex and Gender InformationValueDate RecordedSex Assigned at BirthMale 06/09/2023 3:20 PM ESTLegal CdxCjyr60/26/2022 4:46 PM ESTGender IdentityMale 06/09/2023 3:20 PM ESTSexual LykzexaedgxKoozkamx01/09/2024 3:20 PM ESTdocumented as of this encounter Miscellaneous Notes * Addendum Note - Lopez Sahni LPN - 03/15/2025 4:24 PM EDTAddended by: LOPEZ SAHNI on: 03/15/2025 04:24 PM Modules accepted: Orders * Telephone Encounter - Lopez Sahni LPN - 03/15/2025 4:21 PM EDT Patients contacted and verbalized understanding. States Dr. Butler gave the rx for plavix after angioplasty and stenting of the legs. Mentioned procedure was done over one year ago. Advised from a cardiac standpoint he only needs to resume asa at 81 mg daily. Verbalized understanding. * Telephone Encounter - Claire Meredith LPN - 03/15/2025 10:[address] Chaim Grayson DO, patient is cleared for surgery. Patient may hold ASA and Plavix for 7 days prior to surgery, and restart only ASA 81 mg daily after procedure. 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 Chaim Grayson DO. Dr. Alaniz' office notified via fax and phone call. Patient called, no answer. Left voicemail to return call to discuss. To [facility] for follow up. * Telephone Encounter - Lissy Kirkpatrick LPN - 03/14/2025 11:30 AM EDT Printed to Dr. Chaim Grayson DO desk * Telephone Encounter - Lissy Kirkpatrick LPN - 03/09/2025 1:11 PM EDT Qian at dr. Alaniz office phoned requesting POC. Patient to have bladder tumor removal 03/23/[address] [facility]. General anesthesia. Need poc and ok to hold asa/plavix 7 days prior [phone] option 3 Fax-[phone] documented in this encounter Plan of Treatment DateTypeDepartmentCare Team (Latest Contact Info)Gmzuzzwmraf64/01/2026 10:[address] [address] [place] [id number] Chaim Grayson, [address] [facility] [address] [place] [address] documented as of this encounter Visit Diagnoses Not on filedocumented in this encounter Additional Health Concerns AssessmentNoted TimeA fall risk assessment has been completed for the patient 08/30/2024 11:16 AM EDTdocumented as of this encounter Care Teams Team MemberRelationshipSpecialtyStart DateEnd Date Shaikh Storm MD PCP - GeneralInternal Medicine06/04/23documented as of this encounter
--- OUTSIDE RECORDS SUMMARY | 2025-03-23 06:58 | XMS_ITS ---
Author Organization [facility] Address [address] [place], [place] [id number] Care Team Providers Care Electronic Device Monitor Name Role Phone Shaikh AUBREE Storm Primary Care Provider [phone] Ronaldo Alaniz MD Unavailable [phone] Constance Durand Unavailable Unavailable Active Problems ProblemNoted DateDiagnosed DateStage 3 chronic kidney /21/2023Prostate fvijra6711/18/2022 Current Treatment and Therapy Plans No current [...] you may be interested in: [email or web address] [email or web address] Tea Leaf Reader Flux Plant Operator Art Therapy Support Groups- Contact Tea Leaf Reader for dates and times. Prepared by: Elizabeth Freire APRN.ZIGZAG TUNNEL ELASTIC OPERATOR Delivered on: November 18, 2022 - This [...]
--- OUTSIDE RECORDS SUMMARY | 2025-03-23 06:58 | XMS_ITS | Clinical Summary ---
Author Organization [facility] Address [address] [place] [address] Care Team Providers Care Gas Blender Name Role Phone Shaikh AUBREE Storm Primary Care Provider [phone] Ronaldo Alaniz MD Unavailable [phone] Constance Durand Unavailable Unavailable Allergies No known active allergies Medications MedicationSigDispense QuantityRefillsLast FilledStart DateEnd DateStatus aspirin 81 mg cap Take by mouth.03/22/2021ctive pravastatin (PRAVACHOL) 10 mg tablet pravastatin 10 mg zoavqr8203/22/2021ctive amLODIPine (NORVASC) 10 mg tablet amlodipine 10 mg enyrwx4103/22/2021ctive ergocalciferol, vitamin D2, (VITAMIN D2 ORAL) Take by mouth.Active HYDROcodone-acetaminophen (NORCO) 5-325 mg per tablet Take 1 tablet by mouth two times a day as needed for pain.Active clopidogrel (PLAVIX) 75 mg tablet Take 75 mg by mouth once daily.Active lisinopril (ZESTRIL) 20 mg tablet Take 1 tablet by mouth once daily.03/25/2021ctive pregabalin (LYRICA) 50 mg capsule Take 1 capsule by mouth two times a day.Active Active Problems ProblemNoted DateDiagnosed DateStage 3 chronic kidney yxhdlmf9611/19/2022rostate sxegem5411/18/2022 Encounters DateTypeDepartmentCare YogyPwlfboawale28/20/2025 9:45 AM EDTOffice Visit Radiation Oncology [address] [place] [address] [place] [address] Hyun Raza MD Cancer of prostate w/med recur risk (T2b-c or [place] 7 or PSA 10-20) (HCC) (Primary Dx)01/18/20253172Mwqlvo81/13/2025Travelfrom Last 3 Months Immunizations ImmunizationAdministration DatesNext DueCOVID-19 original vaccine, full dose, monovalent (MODERNA)07/26/2020,06/28/2020 Family History Medical HistoryRelationCommentsOvarian cancerSisterRelationStatusCommentsSister Social History Tobacco UseTypesPacks/DayYears UsedDateSmoking Tobacco: Every DffTitftuswku035 Smokeless Tobacco: Never Tobacco Cessation:Ready to Q uit: Not Asked; Counseling Given: Not Answered Comments:2 ppd x 20 yrs, 1 ppd x 40 yrs Alcohol UseStandard Drinks/WeekCommentsNot Currently0 (1 standard drink = 0.6 oz pure alcohol)PHQ-2AnswerDate RecordedPHQ-2 sdaxe1145Area Deprivation IndexAnswerDate RecordedNational Score (1-100), lower number is lower risk61 11/18/2022State Score (1-10), lower number is lower hugv1553Data from: https://www.neighborhoodatlas.medicine.[facility].edu/. Last address used for ldrfodutaxh7565 [address]/18/2022Sex and Gender InformationValueDate RecordedSex Assigned at FkswsOklx98/17/2023 11:44 AM EDTLegal XkfHhck5312/06/2021 11:51 AM EDT Gender DrvpttehQdxh34/17/2023 11:44 AM EDTSexual BfkgbvoboamHmnykbct09/17/2023 11:44 AM EDT Last Filed Vital Signs Vital SignReadingTime TakenCommentsBlood Rpdomxon803/75001/18/2025 9:27 AM EDT Vpzaa687001/18/2025 9:27 AM XVYYuyurffpzca03 ??C (98.6 ??F)01/18/2025 9:27 AM EDT Respiratory Djtx601401/18/2025 9:27 AM EDTOxygen Lnmsfddeps90%01/18/2025 9:27 AM EDTInhaled Oxygen Concentration--Ahafpk59.5 kg (195 lb 1.7 oz)01/18/2025 9:27 AM XITEmsjlt757.8 cm (5' 10 )01/18/2025 9:27 AM EDTBody Mass Index27.9901/18/2025 9:27 AM EDT Plan of Treatment DateTypeDepartmentCare Team (Latest Contact Info)Fguwjwlkbsx45/20/2025 9:45 AM ESTOffice Visit Radiation Oncology [address] [place] [address] Hyun Raza MD [address] [place] [address] [place] [address] 3 month follow upHealth MaintenanceDue DateLast DoneCommentsAnnual PCP Team Chronic Disease Visit1963Anxiety Dbkgutqsr34/24/1964Depression Screening 1963DTaP,Tdap,Td Vaccine (1 - Tdap)1964Pneumococcal Vaccine: 50+ (1 of 2 - PCV)1964Shingrix Vaccine (1 of 2)1995RSV Vaccine (1 - 1-dose 75+ series)2020dvance Directive Ggwokssdby74/01/2025Medicare Advantage Annual Wellness Visit06/01/2024Serum Rerydmowve54/19/202506/, 11/05/2023, 10/01/2023, Additional history existsCovid-19 Vaccine ( season) /, 06/28/2020Influenza Vaccine (#1)2025Diabetes Vuluqwpbx32/19/370441/, 11/05/2023, 10/01/2023, Additional history exists Procedures Procedure NamePriorityDate/TimeAssociated DiagnosisCommentsPSA/PROSTSPECAG DIAG Phahmxz0401/12/2025 11:43 AM EDT Prostate cancer (HCC) from Last 3 Months Results * PROSTATE-SPECIFIC ANTIGEN DIAGNOSTIC (01/12/2025 11:43 AM EDT)ComponentValue Ref RangeTest MethodAnalysis TimePerformed AtPathologist SignaturePSA1.56<2.60 ng/mL01/12/2025 10:52 PM EDTCST. CHARLES HOSPITAL LABComment:Total PSA test methodology used is the Electrochemiluminescence Immunoassay by [employer]. Total PSA values by differing methodologies cannot be interchanged.Specimen (Source)Anatomical Location / LateralityCollection Method / VolumeCollection TimeReceived TimeBloodBLOOD SPECIMEN / Unknown Venipuncture / Jmzbxsm4301/12/2025 11:43 AM EDT01/12/2025 11:43 AM EDT Narrative Authorizing ProviderResult TypeResult StatusG Jose Raza MDLABORATORYFinal ResultPerforming OrganizationAddressCity/State/ZIP CodePhone Number [facility] [address] [address], from Last 3 Months [place] [facility] [place] [facility] [place] Address: [address] [address] Care Teams Team MemberRelationshipSpecialtyStart DateEnd Date Shaikh Storm MD [address] [place] [address] PCP - GeneralPrimary Care12/06/21 Ronaldo Alaniz MD [address] [address] ReferringUrology12/06/21 Constance Durand LSW Social Flaijh44/4/22
--- OUTSIDE RECORDS SUMMARY | 2025-03-23 06:58 | XMS_ITS | Clinical Summary ---
Author Organization [facility] Address [address] [place] [address] Care Team Providers Care Director Of State Name Role Phone Brian Avalos MD Primary Care Provider [phone] Kayley Ward MED SURG NURSE Unavailable [phone] Allergies Active AllergyReactionsCriticalityNoted DateCommentsEzetimibeGI intolerance 04/27/20239593QurcroxNpsgzCeeebq41/30/2023 Muscle/Joint Pain Other Reaction(s): Other Muscle/Joint Pain ??Other Reaction(s): lipitor Medications MedicationSigDispense QuantityRefillsLast FilledStart DateEnd DateStatus pravastatin (Pravachol) 40 MG tablet Take 40 mg by mouth at bedtime.Active ergocalciferol (Vitamin D-2) 1.25 MG (68581 UT) capsule Take 1.25 mg by mouth 1 (one) time per week.Active ASPIRIN 81 MG chewable tablet Chew 81 mg in the morning.Active clopidogrel (Plavix) 75 MG tablet Take 75 mg by mouth in the morning.04/21/2023ctive valsartan (Diovan) 80 MG tablet Take 80 mg by mouth in the morning.06/04/2023ctive acetaminophen (Tylenol) 325 MG tablet Take 650 mg by mouth every 8 (eight) hours11/18/2023ctive amLODIPine (Norvasc) 10 MG tablet Indications:Primary hypertensionTake 1 tablet (10 mg) by mouth in the morning. 90 tablet 12/09/2024tive Active Problems ProblemNoted DateDiagnosed DateAge-related nuclear cataract of left eye 09/28/2023Nuclear senile qdccikbn05/29/2024Elevated random blood glucose level 09/28/2023 Assessment & Plan (09/28/2023 9:46 AM EDT): Elevated random blood glucose levels when he had labs earlier this year. Check A1C. Unintentional weight qowkat5209/28/2023 Assessment & Plan (09/28/2023 9:45 AM EDT): Weight loss of 7 lbs in 3 months. Reports feeling tired. Check TSH. Gastroesophageal reflux disease without jemubojotjq85/29/2024 Assessment & Plan (01/20/2024 6:53 PM EDT): Taking Omeprazole 40mg Reports he is doing very well. Denies complaints. Assessment & Plan (09/28/2023 9:47 AM EDT): Reports metallic taste in mouth, early satiety and mild abdominal discomfort. Trial of Omerpazole. Follow up in 2 months. Lumbar vozkrpowosguh07/03/2024Lumbar stenosis with neurogenic claudication 09/02/2023 Assessment & Plan (07/13/2024 1:50 PM EST): Following with Pain Management for Lumbar Stenosis. Recently reduced dosage of Glenham. Feels symptoms are well controlled. Continue current regimen as directed by PM. Assessment & Plan (12/08/2023 11:52 AM EDT): S/p lumbar surgery. Well healed surgical scars. Pain is well controlled Assessment & Plan (09/28/2023 9:45 AM EDT): Recommended surgery by NS. He is planning to go ahead with it. Pain is persistent, unchanged. Synovial cyst of lumbar facet joint09/02/2023oronary artery disease involving asa'carsarmiut coronary artery of asa'carsarmiut heart without angina bcgiqamz77/29/2024 Assessment & Plan (01/20/2024 6:42 PM EDT): [...] bradycardia. Chronic right-sided low back pain with right-sided zdythecd35/29/2024Tobacco abuse06/29/2023 Assessment & Plan (01/20/2024 6:54 PM EDT): [...] Chronic bilateral low back pain with bilateral nueiuzkq06/29/2024 Assessment & Plan (06/29/2023 7:14 PM EST): Chronic LBP with claudication on ambulation. His symptoms were presumed to be multifactorial and claudication resulting from vascular insufficiency along with neurological claudication. His left LE pain has sig improved since vascular surgery in 03/23. He continues to exp pain in low back, with radiation to b/l hips on prolonged ambulation. Patient is on Glenham for chronic pain. He was evaluated by NS at [facility] and it seemed like they were concerned about possible opioid induced hyperalgesia. Patient has been trying to wean himself off of Glenham but if he does not use it [...] foraminal stenosis Will refer to NS at [facility]. CVA (cerebral vascular accident)06/04/2023 Assessment & Plan (06/29/2023 6:57 PM EST): Prior hx of ischemic CVA. No residual deficit. On ASA, statin. Carotid artery kcdktvw5506/04/2023AD (peripheral artery disease)06/04/2023 Assessment & Plan (09/28/2023 9:43 AM EDT): On ASA, Plavix and statin. [place] [facility] Leg pain has improved and is doing well Heart oiqrswm8306/04/2023PH (benign prostatic hyperplasia)06/04/2023History of OR (myocardial infarction)06/04/2023HLD (hyperlipidemia)04/27/2023 Assessment & Plan (07/13/2024 1:50 PM EST): [...] surgery. Check Lipid Panel in one month. Tkesmbcxgwqy33/27/2023 Assessment & Plan (07/13/2024 1:50 PM EST): [...] to r/o heart block, TSH. Peripheral vascular ejeeuwh5504/27/2023 Assessment & Plan (06/29/2023 7:01 PM EST): Recent revascularization 03/23 - with excellent results and improved LLE pain. On ASA, plavix and statin. No ulcers/rest pain Assessment & Plan (04/27/2023 12:00 PM EST): S/p revascularization, percutaneous and stent placed last month in March. Doing well. No active complaints to offer Follows up with Dr Justin. H/O prostate sgbuxh5904/27/2023 Assessment & Plan (06/29/2023 7:06 PM EST): S/p radiation for it. PSA Normal 04/[address] Alaniz and Oncology. Fsujzyzqbxh13/27/2023 Assessment & Plan (04/27/2023 12:03 PM EST): Reports bradycardia with fatigue and HR in low 40s sometimes. He has been skipping atenolol every now and then because of it. Will discontinue Atenolol Check TSH, EKG Prostate msddgh4804/27/2023Stage 3 chronic kidney yxnvcif2911/19/2022 Assessment & Plan (07/13/2024 1:50 PM EST): [...] Follows Dr Thakkar for CKD. Resolved Problems ProblemNoted DateDiagnosed DateResolved DatePeripheral arterial disease Encounters DateTypeDepartmentCare SpfhDogzvxzecuh93/23/2025Clinisync Result Encounter [facility] Unsolicited Provider, Generic External Data 02/13/2025linisync Result Encounter [facility] External [facility] Unsolicited Provider, Generic External Data 5Clinisync Result Encounter [facility] External Department Unsolicited Provider, Generic External Data from Last 3 Months Immunizations ImmunizationAdministration DatesNext DueModerna SARS-CoV-2 Jwwawzqlynd92/25/2021 Family History Medical HistoryRelationNameCommentsDiabetesFatherHeart diseaseMotherRelationName StatusCommentsFatherDeceasedMotherDeceasedcataract surgery Social History Tobacco UseTypesPacks/DayYears UsedDateSmoking Tobacco: Every DayCigarettes0.365 Passive Smoke Exposure: CurrentSmokeless Tobacco: Never Tobacco Cessation:Ready to Q uit: Not Asked; Counseling Given: Not Answered Comments:Pt down to 4 per day, required to quit smoking before back surgery could be done. Alcohol UseStandard Drinks/WeekCommentsNot Currently0 (1 standard drink = 0.6 oz pure alcohol)tspbpqX1646 Health LiteracyAnswerDate RecordedHow often do you need to have someone help you when you read instructions, pamphlets, or other written material from your doctor or pharmacy?Never01/20/2024Social Connection and Isolation PanelAnswerDate RecordedIn a typical week, how many times do you talk on the phone with family, friends, or neighbors?Patient zqsocdvj35/21/2024How often do you get together with friends or relatives?Patient gqarsfsj90/21/2024 How often do you attend rastafarian or temple services?Patient ycvrkunt70/21/2024 Do you belong to any clubs or organizations such as rastafarian groups, unions, fraternal or athletic groups, or school groups?Patient stqtcrci50/21/2024How often do you attend meetings of the clubs or organizations you belong to?Patient qjbiszzl09/21/2024re you , , , , never , or living with a partner?Patient tsompuiy75/21/2024UDIT-CAnswerDate RecordedQ1: How often do you have a drink containing alcohol?Never01/20/2024Q2: How many drinks containing alcohol do you have on a typical day when you are drinking? Patient does not drink01/20/2024Q3: How often do you have six or more drinks on one occasion?Never01/20/2024Overall Financial Resource Strain (CARDIA)AnswerDate RecordedHow hard is it for you to pay for the very basics like food, housing, medical care, and heating?Patient sbxjvenq43/21/2024HQ-2AnswerDate Recorded Patient Health Questionnaire-2 Wud[place]012Exercise Vital SignAnswerDate RecordedOn average, how many days per week do you engage in moderate to strenuous exercise (like a brisk walk)?Patient uysqmdrv29/21/2024On average, how many minutes do you engage in exercise at this level?Patient madjtube57/21/2024 Hunger Vital SignAnswerDate RecordedWithin the past 12 months, you worried that your food would run out before you got the money to buymore.Patient declined 01/20/2024Within the past 12 months, the food you bought just didn't last and you didn't have money to get more.Patient eopqrwgq80/21/2024RAPARE - TransportationAnswerDate RecordedIn the past 12 months, has lack of transportation kept you from medical appointments or from getting medications?No 01/20/2024In the past 12 months, has lack of transportation kept you from meetings, work, or from getting things needed for daily living?No01/20/2024 Housing Stability Vital SignAnswerDate RecordedIn the last 12 months, was there a time when you were not able to pay the mortgage or rent on time?No01/20/2024 Number of Times Moved in the Last YearNot on file01/20/2024t any time in the past 12 months, were you homeless or living in a detention (including now)?No 01/20/2024Sex and Gender InformationValueDate RecordedSex Assigned at BirthNot on fileLegal KqjBmxo0908/13/2022 11:33 PM EDTGender IdentityNot on fileSexual OrientationNot on file Last Filed Vital Signs Vital SignReadingTime TakenCommentsBlood Dtergfed523/70007/13/2024 1:16 PM EST Odkgm957707/13/2024 1:16 PM NTDHkhzmkzfevw96.5 ??C (97.7 ??F)07/13/2024 1:16 PM ESTRespiratory Qrwh265507/13/2024 1:16 PM ESTOxygen Pyhwzakpmy77%07/13/2024 1:16 PM ESTInhaled Oxygen Concentration--Vdwtpi54.2 kg (201 lb)07/13/2024 1:16 PM EST Ouqrqt493.8 cm (5' 10 )07/13/2024 1:16 PM ESTBody Mass Index28.8407/13/2024 1:16 PM EST Plan of Treatment Health MaintenanceDue DateLast DoneCommentsPneumococcal Vaccine: 65+ Years (1 of 1 - PCV)1995Influenza Vaccine (#1)2025 Procedures Procedure NamePriorityDate/TimeAssociated DiagnosisCommentsCT LUMBAR SPINE WO IV TPAQWIHL72/23/2025 11:31 AM EDT [facility] URINE T PROTEIN CREAT XHGMMKnnndhg14/15/2025 12:30 PM EDT [facility] URINALYSIS, WITH AWRHBKVCZJJNevpjzx72/15/2025 12:30 PM EDT [facility] PTH, LDWGJUSHABONEQWcsmuvd65/15/2025 10:59 AM EDT [facility] VITAMIN D 25 LGYblonui76/15/2025 10:59 AM EDT [facility] JMFAOJDJHtncqaq15/15/2025 10:59 AM EDT [facility] UETRQwnxsmp55/15/2025 10:59 AM EDT ALL TSMMPSAHJIunftun52/15/2025 10:59 AM EDT ALL URIC UXIMOekttxx53/15/2025 10:59 AM EDT ALL RENAL FUNCTION XLOASNeeffmh03/15/2025 10:59 AM EDT [facility] CBC WITH PLATELET NO DDVKSZVJIOKPPdshqlr45/15/2025 10:59 AM EDT [facility] PSA SERPL-KADVCyromjv73/14/2025 11:43 AM EDT from Last 3 Months Results * CT lumbar spine wo IV contrast (02/21/2025 11:31 AM EDT)Anatomical Region LateralityModalitySpine, L-spineComputed TomographySpecimen (Source)Anatomical Location / LateralityCollection Method / VolumeCollection TimeReceived Time 02/21/2025 11:31 AM EDT Narrative 02/21/2025 11:34 AM EDT [facility] ?[address] ? [place] [address] ? CT Scan Report ? Signed ? Patient: YESENIA BROUSSARD ?MR#: [id number] ?? : 1945 ?Acct:[id number] ?? Age/Sex: 79 / M ?ADM Date: 02/21/25 ?? Loc: CT ? Attending Dr: Loco Farias MED SURG NURSE ? Ordering Physician: Loco Farias NP ?? Date of Service: 02/21/25 ?? Procedure(s): CT lumbar spine wo con ?? Accession Number(s): [id number] ? cc: Shaikh Joanna Storm ? [facility] ? [address] ? [place] [address] ? Patient Name: ?? YESENIA BROUSSARD ? MRN: [facility]:[id number] ? date: 1945 ?Sex: M ?? Assigned Patient Location: CT ?? Current Patient Location: CT ?? Accession/Order Number: [id number] ?? Exam Date: 02/21/2025 ??10:02 ?Report Date: 02/21/2025 ??11:31 ? At the request of: ?? LOCO ??DINORA ??MED SURG NURSE ? Procedure: ??CT lumbar spine wo con ? CT LUMBAR SPINE WITHOUT CONTRAST WITH 3-D RECONSTRUCTIONS ? COMPARISON: MRI 02/20/2023 ? CLINICAL DATA: Chronic low back pain radiating to the right buttock. ??Previous ?? surgery. ? Spiral axial unenhanced images were obtained through the lumbar spine. ? Sagittal, coronal and 3-D volume rendered reconstructions were reviewed. ??This ?? CT exam was performed using one or more following dose reduction techniques: ?? Automated exposure control, adjustment of the mA and/or kV according to ?? patient size, or use of iterative reconstruction technique. ? There is slight dextroscoliotic curvature. ??Structures are osteopenic. ??No ?? acute compression fractures are identified. ??There is still slight ?? anterolisthesis of L3 on L4 and L4 and L5. ??There is mild disc space narrowing ?? at L3-4, L4-5 and at the lumbosacral junction. ??Mild endplate spurring and ?? moderate bilateral facet hypertrophy are present. ??There is a suspected right ?? hemilaminotomy defect at L4 and possibly on the left at L5. ??Degenerative ?? changes are seen SI joints, right greater than left. ? At L2-3, there is minor disco-osteophytic bulging toward the neural foramen ?? where mild inferior foraminal encroachment is noted. ? At L3-4, there is disco-osteophytic bulging, greater through the neural ?? foramen. ??There is mild thickening of ligamentum flavum along with facet ?? hypertrophy. ??There is still at least moderate thecal sac effacement and ?? moderate to severe narrowing of the neural foramen, right worse than left. ? At L4-5, disco-osteophytic bulging is present. ??There is ligamentous as well ?? as facet hypertrophy. ??There is mild to moderate thecal sac effacement. ??There ?? is moderate to severe bilateral foraminal encroachment, greater on the left. ? At the lumbosacral junction, there is disco-osteophytic bulging, greater at ?? the neural foramen. ??There is no significant thecal sac effacement. ??There is ?? moderate left and severe right foraminal impingement. ? No paraspinal soft tissue abnormalities are present. ??There is no contributory ?? finding at the lower imaged lungs. ??There is moderate atherosclerotic disease ?? as well as an ectatic aorta with maximum AP diameter of 3.1 cm. ??There are ?? small cortical hypodensities at both kidneys that may be cysts. ??There is an ?? exophytic slightly hyperdense nodule at the inferior pole of the left kidney ?? that might be a hemorrhagic cyst. ??Sigmoid diverticular disease is visualized. ?? There is also suggestion of a sigmoid anastomosis. ??Urinary bladder is poorly ?? distended and the wall appears thickened. ??No ascites is seen. ? CT/CT lumbar spine wo con ?? IMPRESSION: ? SLIGHT DEXTROSCOLIOTIC CURVATURE, POSTOPERATIVE AND DISCOVERTEBRAL ?? DEGENERATIVE CHANGES WITH ASSOCIATED STENOSIS, DISCUSSED ABOVE. ? Impression dictated by: Lorelei Waite M.D. ??02/21/2025 11:31 AM ? Dictation Location: [place] [address] ? Electronically authenticated by: [id number] ??Y ?? Date: 02/21/2025 ??11:31 ? Dictated By: ?Lorelei Waite M.D. ? Signed By: ?02/21/25 1134 ? DD/ 1131 ? TD/TT: ? Hooker Operator: Procedure Note Radiology, Radiologist, - 02/21/2025 [place] [address] CT Scan Report Signed Patient: YESENIA BROUSSARD RMR#: [id number] : 1945cct:[id number] Age/Sex: 79 / MADM Date: 02/21/25 Loc: CT Attending Dr: Loco Farias NP Ordering Physician: Loco Farias NP Date of Service: 02/21/25 Procedure(s): CT lumbar spine wo con Accession Number(s): [id number] cc: Shaikh Joanna Storm [place] [id number] Patient Name: YESENIA BROUSSARD MRN: [facility]:[id number] date: 1945 Sex: M Assigned Patient Location: CT Current Patient Location: CT Accession/Order Number: [id number] Exam Date: 02/21/2025 10:02 Report Date: 02/21/2025 [...] Waite M.D. 02/21/2025 11:31 AM Dictation Location: [place] [address] Electronically authenticated by: [id number] Y Date: 1:31 Dictated By: Lorelei Waite M.D. Signed By:02/21/25 1134 DD/ 1131 TD/TT: Hooker Operator: Authorizing ProviderResult TypeResult StatusGeneric External Data ProviderIMG CT PROCEDURESFinal Result * (ABNORMAL) [facility] URINE T PROTEIN CREAT RATIO (02/13/2025 12:30 PM EDT)Component ValueRef RangeTest MethodAnalysis TimePerformed AtPathologist SignatureTOTAL PROTEIN URINE TJMBMM851.8(H)<=11.9 mg/dLTBHCREATININE URINE XYIEBS476.6120.00 - 300.00 mg/dLTBHPROTEIN CREATININE RATIO URINE0.69TBHSpecimen (Source) Anatomical Location / LateralityCollection Method / VolumeCollection Time Received Time02/13/2025 12:30 PM EDT02/13/2025 12:45 PM EDT Narrative BRITTNEYIA - 02/13/2025 2:58 PM EDT Authorizing ProviderResult TypeResult StatusGeneric External Data Provider CLINISYNCFinal ResultPerforming OrganizationAddressCity/State/ZIP CodePhone Number [facility] * (ABNORMAL) [facility] URINALYSIS, WITH MICROSCOPIC (02/13/2025 12:30 PM EDT) ComponentValueRef RangeTest MethodAnalysis TimePerformed AtPathologist SignatureCOLOR URINELT. YELLOWYELLOWTBHCLARITY URINESL CLOUDYCLEARTBHSPECIFIC GRAVITY URINE1.0251.005 - 1.025TBHPH URINE5.55.0 - 9.0TBHPROTEIN ICBXG806(A) NEG/TRACE mg/dLTBHGLUCOSE URINE UANEGATIVENEGATIVE mg/dLTBHBILIRUBIN URINE SMALL(A)NEGATIVETBHKETONES URINETRACE(A)NEGATIVE mg/dLTBHBLOOD URINETRACE-I NEGATIVETBHNITRITE URINENEGATIVENEGATIVETBHUROBILINOGEN URINE0.20.2 - 1.0 EU/dLTBHLEUKOCYTE ESTERASE URINELARGE(A)NEGATIVETBHTBH UGN94-40(A)NONE SEEN #/HPFTBHTBH RBC0-20 - 2 #/HPFTBHBACTERIA URINESMALL(A)NONE SEEN #/HPFTBHMUCUS URINENONE SEENNONE SEENTBHSQUAMOUS EPITHELIAL CELL URINERARENONE/RARE #/LPFTBH CRYSTALS SEEN?None SeenNone Seen #/HPFTBHCAST SEEN?NONE SEENNONE SEEN #/LPFTBH Specimen (Source)Anatomical Location / LateralityCollection Method / Volume Collection TimeReceived Time02/13/2025 12:30 PM EDT02/13/2025 12:45 PM EDT Narrative DOLORES - 02/13/2025 1:32 PM EDT Authorizing ProviderResult TypeResult StatusGeneric External Data Provider CLINISYNCFinal ResultPerforming OrganizationAddressty/State/ZIP CodePhone Number [facility] * [facility] VITAMIN D 25 [place] (02/13/2025 10:59 AM EDT)ComponentValueRef RangeTest MethodAnalysis TimePerformed AtPathologist SignatureVITAMIN D43.3ng/mLTBH Comment: <20 ng/mL Vit D deficient 20-<30 ng/mL Vit D insufficient 30-100 ng/mL ??Vit D sufficient >100 ng/mL Potential Toxicity Specimen (Source)Anatomical Location / LateralityCollection Method / Volume Collection TimeReceived Time02/13/2025 10:59 AM EDT02/13/2025 11:03 AM EDT Narrative [facility] - 02/13/2025 1:10 PM EDT Authorizing ProviderResult TypeResult StatusGeneric External Data Provider CLINISYNCFinal ResultPerforming OrganizationAddressty/State/ZIP CodePhone Number [facility] * [facility] (02/13/2025 10:59 AM EDT)ComponentValueRef RangeTest MethodAnalysis TimePerformed AtPathologist SignatureTBH IRON80.065.0 - 175.0 ug/dLTBHTBH TOTAL IRON BINDING SHKEHLFV711.0250.0 - 450.0 ug/dLTBHTBH PERCENT IRON BZAGWWCFKG51.6%TBHSpecimen (Source)Anatomical Location / Laterality Collection Method / VolumeCollection TimeReceived Time02/13/2025 10:59 AM EDT 02/13/2025 11:03 AM EDT Narrative [facility] - 02/13/2025 12:10 PM EDT Authorizing ProviderResult TypeResult StatusGeneric External Data Provider CLINISYNCFinal ResultPerforming OrganizationAddressty/State/ZIP CodePhone Number [facility] * (ABNORMAL) [facility] PTH, INTRAOPERATIVE (02/13/2025 10:59 AM EDT)ComponentValueRef RangeTest MethodAnalysis TimePerformed AtPathologist SignaturePTH, NUJDSD47(A) 15 - 65 pg/mLTBHComment: Performed at: ??CB - [facility] [address] ??[id number] Yoker Machine Operator: Rojelio Nelson PhD, Phone: ??[phone] Specimen (Source)Anatomical Location / LateralityCollection Method / Volume Collection TimeReceived Time02/13/2025 10:59 AM EDT02/13/2025 11:03 AM EDT Narrative CLIN[facility] - 02/14/2025 10:09 AM EDT Authorizing ProviderResult TypeResult StatusGeneric External Data Provider CLINISYNCFinal ResultPerforming OrganizationAddressCity/State/ZIP CodePhone Number [facility] * ([facility]) [facility] CBC WITH PLATELET NO DIFFERENTIAL (02/13/2025 10:59 AM EDT) ComponentValueRef RangeTest MethodAnalysis TimePerformed AtPathologist SignatureTBH WBC8.04.0 - 11.0 10 3/uLTBHTBH RBC4.18(L)4.70 - 6.10 10 6/uLTBH TBH HGB12.9(L)14.0 - 18.0 g/dLTBHTBH HCT39.3(L)42.0 - 54.0 %TBHTBH MCV94.080.0 - 94.0 fLTBHTBH MCH30.925.9 - 34.0 pgTBHTBH MCHC32.829.9 - 35.2 g/dLTBHTBH RDW 13.611.0 - 15.0 %TBHTBH MBV181999 - 450 10 3/uLTBHTBH MPV10.39.5 - 13.5 fLTBH Specimen (Source)Anatomical Location / LateralityCollection Method / Volume Collection TimeReceived Time02/13/2025 10:59 AM EDT02/13/2025 11:03 AM EDT Narrative [facility] - 02/13/2025 11:10 AM EDT Authorizing ProviderResult TypeResult StatusGeneric External Data Provider CLINISYNCFinal ResultPerforming OrganizationAddressCity/State/ZIP CodePhone Number [facility] * [facility] FERRITIN (02/13/2025 10:59 AM EDT)ComponentValueRef RangeTest Method Analysis TimePerformed AtPathologist YbshhozhqQNSVJUNC21.026.0 - 388.0 ng/mL TBHSpecimen (Source)Anatomical Location / LateralityCollection Method / Volume Collection TimeReceived Time02/13/2025 10:59 AM EDT02/13/2025 11:03 AM EDT Narrative [facility] - 02/13/2025 1:10 PM EDT Authorizing ProviderResult TypeResult StatusGeneric External Data Provider CLINISYNCFinal ResultPerforming OrganizationAddressCity/State/ZIP CodePhone Number [facility] * ALL URIC ACID (02/13/2025 10:59 AM EDT)ComponentValueRef RangeTest Method Analysis TimePerformed AtPathologist SignatureURIC ACID6.63.5 - 7.2 mg/dLTBH Specimen (Source)Anatomical Location / LateralityCollection Method / Volume Collection TimeReceived Time02/13/2025 10:59 AM EDT02/13/2025 11:03 AM EDT Narrative CLIN[facility] - 02/13/2025 11:39 AM EDT Authorizing ProviderResult TypeResult StatusGeneric External Data Provider CLINISYNCFinal ResultPerforming OrganizationAddressty/State/ZIP CodePhone Number [facility] * (ABNORMAL) ALL RENAL FUNCTION PANEL (02/13/2025 10:59 AM EDT)ComponentValueRef RangeTest MethodAnalysis TimePerformed AtPathologist VwqifudjlVEJOLU284223 - 145 mmol/LTBHPOTASSIUM5.2(H)3.5 - 5.1 mmol/JZICVKHKHJOK70410 - 107 mmol/LTBH CARBON SVMCYYE95.621.0 - 32.0 mmol/LTBHANION GAP14.5UUTWPMKHMQ79754 - 106 mg/dLTBHBLOOD UREA IXSQQYEC37.0(H)7.0 - 18.0 mg/dLTBHCREATININE1.93(H)0.70 - 1.30 mg/dLTBHTBH EGFR-AF OOMYFBMJ05(L)>=60 mL/min/1.73m 2TBHTBH EGFR-NON AF TRNFPYAN04(L)>=60 mL/min/1.73m 2TBHBUN CREATININE RATIO14.0YIZNWIDYWT7.28.5 - 10.1 mg/dLTBHPHOSPHORUS3.92.6 - 4.7 mg/dLTBHALBUMIN LEVEL3.83.4 - 5.0 g/dLTBH Specimen (Source)Anatomical Location / LateralityCollection Method / Volume Collection TimeReceived Time02/13/2025 10:59 AM EDT02/13/2025 11:03 AM EDT Narrative [facility] - 02/13/2025 11:39 AM EDT Authorizing ProviderResult TypeResult StatusGeneric External Data Provider CLINISYNCFinal ResultPerforming OrganizationAddressCity/State/ZIP CodePhone Number [facility] * ALL MAGNESIUM (02/13/2025 10:59 AM EDT)ComponentValueRef RangeTest Method Analysis TimePerformed AtPathologist SignatureMAGNESIUM2.01.8 - 2.4 mg/dLTBH Specimen (Source)Anatomical Location / LateralityCollection Method / Volume Collection TimeReceived Time02/13/2025 10:59 AM EDT02/13/2025 11:03 AM EDT Narrative CL[facility] - 02/13/2025 11:39 AM EDT Authorizing ProviderResult TypeResult StatusGeneric External Data Provider CLINISYNCFinal ResultPerforming OrganizationAddressCity/State/ZIP CodePhone Number [facility] * [facility] PSA SERPL-MCNC (01/12/2025 11:43 AM EDT)ComponentValueRef RangeTest Method Analysis TimePerformed AtPathologist SignatureCCF PSA SERPL-MCNC1.56<2.60 ng/mLCCFComment:Total PSA test methodology used is the Electrochemiluminescence Immunoassay by [employer]. Total PSA values by differing methodologies cannot be interchanged.Specimen (Source)Anatomical Location / LateralityCollection Method / VolumeCollection TimeReceived Time 01/12/2025 11:43 AM EDT01/12/2025 2:35 PM EDT Narrative CLIN[facility] - 01/12/2025 10:52 PM EDT Specimen Type: BLOOD SPECIMEN Ordering Facility: [facility] ?Address: [address] [place] [address] Original Ordering Provider: Hyun NAZARIO Authorizing ProviderResult TypeResult StatusGeneric External Data Provider CLINISYNCFinal ResultPerforming OrganizationAddPottstown Hospitalty/State/ZIP CodePhone Number KEEGANISYNC [address] [place] [address] from Last [address] [place] [address] Care Teams Team MemberRelationshipSpecialtyStart DateEnd Date Brian Avalos MD PCP - GeneralFamily Medicine01/12/24 Kayley Ward NP Nurse PractitionerFamily Medicine01/12/24
--- OUTSIDE RECORDS SUMMARY | 2025-03-23 06:58 | XMS_ITS | Clinical Summary ---
Author Organization [facility] Address [address] [place] [address] Care Team Providers Care Creative Arts Therapist Name Role Phone Shaikh AUBREE Storm Primary Care Provider [phone] Allergies Active AllergyReactionsCriticalityNoted DateCommentsEzetimibeGI intoleranceHigh 04/27/2023 Other reaction(s): Nausea/vomiting Cblpwup-Sba-Oaw Reductase HsqclmgvnsLqlnqPgcbqg06/30/2023 Muscle/Joint Pain Other Reaction(s): lipitor Medications MedicationSigDispense QuantityRefillsLast FilledStart DateEnd DateStatus valsartan (Diovan) 80 mg tablet Take 80 mg by mouth in the morning.06/04/2023ctive amLODIPine (Norvasc) 10 mg tablet Take 1 tablet by mouth in the morning.03/22/2021ctive baclofen (Lioresal) 10 mg tablet Take 10 mg by mouth at bedtime.08/17/2023ctive ergocalciferol (Vitamin D-2) 1.25 MG (30006 Units) capsule Take 1,250 mcg by mouth 1 (one) time per week.Active aspirin 81 mg capsule Indications:PAD (peripheral artery disease)Take 81 mg by mouth in the morning. Restart on Thursday11/22/2023 30 capsule 11/18/2023ctive nitroglycerin (Nitrostat) 0.4 mg SL tablet Refills(s) ctive HYDROcodone-acetaminophen (Oxford) 7.5-325 mg tablet 1 tablet.09/08/2023Active clopidogrel (Plavix) 75 mg tablet Take 1 tablet by mouth in the morning.5Active cyclobenzaprine (Flexeril) 10 mg tablet 10 mg if needed at bedtime for muscle spasms.5Active pravastatin (Pravachol) 10 mg tablet Take 10 mg by mouth at bedtime./Discontinued(Therapy completed) varenicline (Chantix) 0.5 mg tablet Take 0.5 mg by mouth in the morning and at bedtime. Take with full glass of water.03/15/2025Discontinued(Therapy completed) omeprazole (PriLOSEC) [address] capsule TAKE 1 CAPSULE BY MOUTH IN THE MORNING BEFORE MEALS DO NOT CRUSH OR CHEW Discontinued(Therapy completed) Active Problems ProblemNoted DateDiagnosed DateS/P lumbar uenenxlcgmh67/18/2024ge-related nuclear cataract of left eye09/28/2023Nuclear senile /29/2024Elevated random blood glucose level09/28/2023 Overview (11/05/2023): Last Assessment & Plan: Elevated random blood glucose levels when he had labs earlier this year. Check A1C. Gastroesophageal reflux disease without znwozqfzihf77/29/2024 Overview (11/05/2023): Last Assessment & Plan: Reports metallic taste in mouth, early satiety and mild abdominal discomfort. Trial of Omerpazole. Follow up in 2 months. Unintentional weight ljtsnh4609/28/2023 Overview (11/05/2023): Last Assessment & Plan: Weight loss of 7 lbs in 3 months. Reports feeling tired. Check TSH. Lumbar stenosis with neurogenic mfmukwvdvkbd53/03/2024 Overview (11/05/2023): Last Assessment & Plan: Recommended surgery by NS. He is planning to go ahead with it. Pain is persistent, unchanged. Synovial cyst of lumbar facet joint09/02/2023Lumbar epqkpdokwbtay01/03/2024MI 28.0-28.9,adult08/18/2023therosclerotic heart disease of ambler coronary artery without angina pmzifpgq50/29/2024 Overview (11/05/2023): Last Assessment & Plan: S/p PCI years ago. Nuclear stress 2022 - normal C/w ASA, plavix and statin Chronic low back pain06/29/2023 Overview (11/05/2023): Last Assessment & Plan: Chronic LBP with claudication on ambulation. His symptoms were presumed to be multifactorial and claudication resulting from vascular insufficiency along with neurological claudication. His left LE pain has sig improved since vascular surgery in 03/23. He continues to exp pain in low back, with radiation to b/l hips on prolonged ambulation. Patient is on Oxford for chronic pain. He was evaluated by NS at [facility] and it seemed like they were concerned about possible opioid induced hyperalgesia. Patient has been trying to wean himself off of Oxford but if he does not use it [...] foraminal stenosis Will refer to NS at [facility]. Tobacco abuse06/29/2023 Overview (11/05/2023): Last Assessment & Plan: He is using Nicotine patches currently. Trying to quite smoking. Will call in Automated Insights[employer] for the patient. Patient counseled on smoking/tobacco [...] minutes were spent on Smoking/Tobacco use counseling. Qmfxiyn9006/04/2023PH with urinary fdkkduvyrvr96/04/2024hest /04/2024 Chronic pain ycwitjuf81/04/2024hronic /04/2024Feeling of incomplete bladder pmpfzcih54/04/2024Erectile almvjvftzmx61/04/2024Gross psodidwxt47/04/2024arotid artery jzegqsd6906/04/2023VA (cerebral vascular accident)06/04/2023 Overview (11/05/2023): Last Assessment & Plan: Prior hx of ischemic CVA. No residual deficit. On ASA, statin. Heart pscvjov9406/04/2023AD (peripheral artery disease)06/04/2023 Overview (11/05/2023): Last Assessment & Plan: On ASA, Plavix and statin. [place] [facility] Leg pain has improved and is doing well History of NE (myocardial infarction)06/04/2023Kidney crusynb7906/04/2023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) 06/04/20237826Mlcblexd42/04/2024rostate pzwnsy7906/04/2023ecurrent UTI06/04/2023 Xokcda2206/04/2023Umbilical joimjv1806/04/2023UTI agsuzqwo84/04/2024radycardia 04/27/2023 Overview (11/05/2023): Last Assessment & Plan: [...] discontinue Atenolol Check TSH, EKG H/O prostate rochil0004/27/2023 Overview (11/05/2023): Last Assessment & Plan: S/p radiation for it. PSA Normal 04/[address] Alaniz and Oncology. Vddbbtdqvvmb75/27/2023 Overview (11/05/2023): Last Assessment & Plan: Well controlled on current regimen. Has noted lately that his HR is sometimes in the low 40,50 range while onatenolol. At the same he has noticed fatigue too. Discontinue Atenolol. Monitor BP at home w.o it. Will order an EKG to r/o heart block, TSH. Last Assessment & Plan: C/w amlodipine. At goal. Monitor. Peripheral vascular qqdpzyj1104/27/2023 Overview (11/05/2023): Last Assessment & Plan: Recent revascularization 03/23 - with excellent results and improved LLE pain. On ASA, plavix and statin. No ulcers/rest pain HLD (hyperlipidemia)04/27/2023 Overview (11/05/2023): Last Assessment & Plan: Recently started on Pravastatin by Vascular surgery. Check Lipid Panel in one month. Last Assessment & Plan: On pravastatin Check lipid panel . Stage 3 chronic kidney garnylr5711/19/2022 Overview (11/05/2023): Last Assessment & Plan: CKD 3, due to HTN. Monitor. Cr stable, no change C.w treatment for HTN. Follows Dr Thakkar for CKD. Last Assessment & Plan: Stable. Check labs Prostate sshfjt1811/18/2022Intermittent kabydsfsvcjw83/04/2021 Encounters DateTypeDepartmentCare KombEgaeusqyuwo22/15/2025 12:40 PM EDTFollow-Up Karon He [facility] [address] [place] [address] Vasile Watson MD Lumbar spondylosis (Primary Dx); Chronic bilateral low back pain without xdzswrke49/01/2025 - 03/01/2025 11:59 PM EDTHospital Encounter [facility] Radiology External Films [address] [place] [address] Discharge Disposition: Home or Self Care (01)from Last 3 Months Family History Medical HistoryRelationNameCommentsDiabetesFatherRay HansenHypertensionMother Cynthia StutzelRelationNameStatusCommentsFatherRay HansenMotherLorraine Stutzel Social History Tobacco UseTypesPacks/DayYears UsedDateSmoking Tobacco: Every DayCigarettes0.390 Passive Smoke Exposure: PastSmokeless Tobacco: Never Comments:I am in the process of quitting Alcohol UseStandard Drinks/WeekCommentsNot Currently0 (1 standard drink = 0.6 oz pure alcohol)[facility] UtilitiesAnswerDate RecordedIn the past 12 months has the Knowable, gas, oil, or water Inbilin threatened to shut off services in your home?No01/12/2024Humiliation, Afraid, Rape, and Kick questionnaireAnswerDate RecordedWithin the last year, have you been afraid of your partner or ex-partner?No01/12/2024Emotionally AbusedNot on file01/12/2024 Physically AbusedNot on file01/12/2024Sexually AbusedNot on file01/12/2024 Overall Financial Resource Strain (CARDIA)AnswerDate RecordedHow hard is it for you to pay for the very basics like food, housing, medical care, and heating?Not hard at all01/12/2024HQ-2AnswerDate RecordedPatient Health Questionnaire-2 Suhnz975TransportationAnswerDate RecordedIn the past 12 months, has lack [...] file01/12/2024Sex and Gender InformationValueDate RecordedSex Assigned at SxibbTtax82/03/2024 10:58 AM EDTLegal OqkKegj0611/28/2021 12:39 AM EDTGender DriyiijwWdge72/03/2024 10:58 AM EDTSexual OrientationHeterosexual or Isddydyj42/03/2024 10:58 AM EDT Last Filed Vital Signs Vital SignReadingTime TakenCommentsBlood Btrjsylu677/8803/15/2025 12:56 PM EDT Zcbmt309003/15/2025 12:56 PM LUMIabmbhskynt20.6 ??C (97.8 ??F)01/12/2024 1:09 PM EDTRespiratory Eqnk156111/18/2023 7:01 AM EDTOxygen Bzlupkkcnh17%08/18/2024 2:10 PM EDTInhaled Oxygen Concentration--Jywbrf85.8 kg (198 lb)03/15/2025 12:56 PM XWWRxzrpm803.8 cm (5' 10 )08/18/2024 2:10 PM EDTBody Mass Index28.41008/18/2024 2:10 PM EDT Plan of Treatment Health MaintenanceDue DateLast DoneCommentsMedicare Annual Wellness (AWV) 1945Pneumococcal Vaccine: 50+ Years (1 of 2 - PCV)1964Adult Tetanus 1967Zoster Vaccines (1 of 2)1995COVID-19 Vaccine (3 - season)502/, 06/28/2020Influenza Vaccine (#1)2025 Depression Ydqcqnkis04Fall Risk Wqbekzcof73 HIB VaccinesAged OutNo longer eligible based on patient's age to complete this topicHPV VaccinesAged OutNo longer eligible based on patient's age to complete this topicIPV VaccinesAged OutNo longer eligible based on patient's age to complete this topicMeningococcal B VaccineAged OutNo longer eligible based on patient's age to complete this topicMeningococcal VaccineAged OutNo longer eligible based on patient's age to complete this topicRotavirus VaccinesAged Out No longer eligible based on patient's age to complete this topic Procedures Procedure NamePriorityDate/TimeAssociated DiagnosisCommentsCT TRANSFER OF OUTSIDE ZUOXNYcvroxp18/01/2025 12:00 AM EDT from Last 3 Months Results * CT transfer of outside films (03/01/2025 12:00 AM EDT)Specimen (Source) Anatomical Location / LateralityCollection Method / VolumeCollection Time Received Time Narrative IMAGING - 03/01/2025 11:41 AM EDT This order has been auto-finalized and does not contain a result. Authorizing ProviderResult TypeResult StatusVasile CRESPO CT PROCEDURES Final ResultPerforming OrganizationAddressCity/State/ZIP CodePhone Number IMAGING from Last 3 Months Insurance Advance Directives * Full Code (Latest Code Status on File) Date ActivatedDate InactivatedComments11/17/2023 12:45 PM11/18/2023 2:28 PM Care Teams Team MemberRelationshipSpecialtyStart DateEnd Date Shaikh Storm MD PCP - GeneralFamily Medicine09/02/23
--- OUTSIDE RECORDS SUMMARY | 2025-03-23 06:58 | XMS_ITS | Clinical Summary ---
Author Organization [employer] [facility] Address [id number] [place] [address] Care Team Providers Care Mint Wafer Depositor Name Role Phone Unavailable Primary Care Provider Unavailabl e Social History Tobacco UseTypesPacks/DayYears UsedDateSmoking Tobacco: Never Assessed CommentsUnknownSex and Gender InformationValueDate RecordedSex Assigned at Not on fileLegal HtuLjiiwe54/23/2024 2:14 PM ESTGender IdentityNot on fileSexual OrientationNot on file Plan of Treatment Health MaintenanceDue DateLast DoneCommentsDepression Chxrwctvm67/24/1958Tobacco Czngtltiu99/24/1958DTaP,Tdap and Td Vaccines (1 - Tdap)1964Zoster (Shingles) Vaccine (1 of 2)1995Fall Risk Bvkcnpttm68/24/2011Influenza Fcwceyn6801/30/2025 Medical Devices Not on file Insurance
--- OUTSIDE RECORDS SUMMARY | 2025-03-23 06:58 | XMS_ITS | Clinical Summary ---
Author Organization [facility] Address [address] [place] [address] Phone Care Team Providers Care Chef French Name Role Phone Shaikh AUBREE Storm Primary Care Provider [phone] Allergies Active AllergyReactionsCriticalityNoted DateCommentsEzetimibeGI intolerance, Nausea/pvdcdrowIbay03/27/9617Wlbqtfm-Wku-Cwl Reductase InhibitorsOtherMedium 03/30/2023 Muscle/Joint Pain Medications MedicationSigDispense QuantityRefillsLast FilledStart DateEnd DateStatus aspirin 81 mg EC tablet Take 1 tablet (81 mg) by mouth once daily.Active ergocalciferol (Vitamin D-2) 1.25 MG (78222 UT) capsule Take 1 capsule (1,250 mcg) by mouth 1 (one) time per week.Active HYDROcodone-acetaminophen ([place]) 7.5-325 mg tablet Take 1 tablet by mouth 3 times a day as needed.Active nitroglycerin (Nitrostat) 0.4 mg SL tablet Indications:Chest pain, unspecified typePlace 1 tablet (0.4 mg) under the tongue every 5 minutes if needed for chest pain. May repeat dose every 5 minutes for up to 3 doses total. 100 tablet ctive amLODIPine (Norvasc) 10 mg tablet Take 1 tablet (10 mg) by mouth once daily in the morning. Take before meals. 05/31/2024ctive pravastatin (Pravachol) 40 mg tablet Indications:Mixed hyperlipidemia,Bilateral carotid artery disease, unspecified typeTake 1 tablet (40 mg) by mouth once daily at bedtime. 90 tablet 304/25/637538/6Active valsartan (Diovan) 80 mg tablet Indications:Hypertension, unspecified typeTake 1 tablet (80 mg) by mouth once daily. 90 tablet 305/08/013051/6Active clopidogrel (Plavix) 75 mg tablet Take 1 tablet (75 mg) by mouth once daily.Discontinued (Therapy completed) Active Problems ProblemNoted DateDiagnosed DateBMI 28.0-28.9,adult08/18/2023 Assessment & Plan (08/30/2024 1:10 PM EDT): Reviewed the merits of healthy lifestyle choices on overall cardiovascular health. 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)06/04/20238492Kmiqnsdy06/04/2024rostate cnmuds8106/04/2023 Recurrent UTI06/04/2023Umbilical kfocsh4406/04/2023UTI umvzuwpb13/04/2024arotid artery clvapuz3206/04/2023 Assessment & Plan (08/30/2024 1:10 PM EDT): Bilateral carotid endarterectomy Managed by local vascular team Chest ywbpnzym23/04/2024VD (peripheral vascular disease)06/04/2023 Assessment & Plan (08/30/2024 1:10 PM EDT): 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 Continued every day tobacco use. Have reviewed the negative cardiovascular impact of nicotine. Continues to decline pharmacological assistance. Vpzmuojjqae98/27/2023 Overview (06/04/2023): Last Assessment & Plan: Reports bradycardia with fatigue and HR in low 40s sometimes. He has been skipping atenolol every now and then because of it. Will discontinue Atenolol Check TSH, EKG H/O prostate babsss8204/27/2023HLD (hyperlipidemia)04/27/2023 Overview (06/04/2023): Last Assessment & Plan: Recently started on Pravastatin by Vascular surgery. Check Lipid Panel in one month. Assessment & Plan (08/30/2024 1:09 PM EDT): Moderate intensity statin September 2023 LDL 81, HDL 38 Nlskouabagmp04/27/2023 Overview (06/04/2023): Last Assessment & Plan: Well controlled on current regimen. Has noted lately that his HR is sometimes in the low 40,50 range while onatenolol. At the same he has noticed fatigue too. Discontinue Atenolol. Monitor BP at home w.o it. Will order an EKG to r/o heart block, TSH. Assessment & Plan (08/30/2024 1:09 PM EDT): Optimal in office Prostate rhwncq8504/27/2023hronic kidney disease, stage 3b11/19/2022 Overview (06/04/2023): Last Assessment & Plan: CKD 3, due to HTN. Monitor. Cr stable, no change C.w treatment for HTN. Follows Dr Thakkar for CKD. Assessment & Plan (08/30/2024 1:10 PM EDT): Follows routinely with nephrology September 2024 creatinine 1.7 Resolved Problems ProblemNoted DateDiagnosed DateResolved DateHeart wooijzk76 Encounters DateTypeDepartmentCare JqtnGmfogteijdc12/09/2025Telephone [facility] [address] [facility] [address] [place] [address] Lissy Kirkpatrick, HOSE SEAMER Pre-op Clearance; med holdfrom Last 3 Months Immunizations ImmunizationAdministration DatesNext DueModerna SARS-CoV-2 Ixtqtxrrebs13/25/2021 Family History Medical HistoryRelationNameCommentsNo Known ProblemsFatherHeart attackMother Cynthia StutzelRelationNameStatusCommentsFatherMotherLorraine Stutzel Social History Tobacco UseTypesPacks/DayYears UsedDateSmoking Tobacco: Every DayCigarettes0.560 Smokeless Tobacco: Never Tobacco Cessation:Ready to Q uit: No; Counseling Given: Yes Comments:Trying to quit Alcohol UseStandard Drinks/WeekCommentsNever0 (1 standard drink = 0.6 oz pure alcohol)Sex and Gender InformationValueDate RecordedSex Assigned at BirthMale 06/09/2023 3:20 PM ESTLegal YveEvag59/26/2022 4:46 PM ESTGender IdentityMale 06/09/2023 3:20 PM ESTSexual DnhxqauejtbEcnvsmio49/09/2024 3:20 PM EST Last Filed Vital Signs Vital SignReadingTime TakenCommentsBlood Jmflxtfq313/6804 11:30 AM EDT Kcogr8828 11:16 AM EDTTemperature--Respiratory Rate--Oxygen Saturation-- Inhaled Oxygen Concentration--Avojrs09.3 kg (199 lb)08/30/2024 11:16 AM EDT Rxzofv274.8 cm (5' 10 )08/30/2024 11:16 AM EDTBody Mass Index28.55008/30/2024 11:16 AM EDT Plan of Treatment DateTypeDepartmentCare Team (Latest Contact Info)Lqonundkoif11/01/2026 10:00 AM EDTOffice Visit [facility] [address] [facility] [address] [place] [address] Chaim Grayson, [address] [facility] [address] [place] [address] Health MaintenanceDue DateLast DoneCommentsLipid Panel1945Medicare Annual Wellness Visit (AWV)1945Hepatitis C Abjksyjgu82/24/1964CKD: Urine Protein Czqqjhcii10/24/1965Pneumococcal Vaccine (1 of 2 - PCV)1964DTaP/Tdap/Td Vaccines (1 - Tdap)1967Lung Cancer Cowzhphly55/24/1996Zoster Vaccines (1 of 2)1995RSV High Risk: (Elderly (60+) or Population) (1 - 1-dose 75+ series)2020Influenza Vaccine (#1)5COVID-19 Vaccine (3 - 2024- season)5007/26/2020, 06/25/2020HIB VaccinesAged OutNo longer eligible based on patient's age to complete this topicHPV VaccinesAged OutNo longer eligible based on patient's age to complete this topicHepatitis A VaccinesAged OutNo longer eligible based on patient's age to complete this topicHepatitis B VaccinesAged OutNo longer eligible based on patient's age to complete this topic IPV VaccinesAged OutNo longer eligible based on patient's age to complete this topicMeningococcal VaccineAged OutNo longer eligible based on patient's age to complete this topicRotavirus VaccinesAged OutNo longer eligible based on patient's age to complete this topic Insurance Care Teams Team MemberRelationshipSpecialtyStart DateEnd Date Shaikh Storm MD PCP - GeneralInternal Medicine06/04/23
[2025-03-23] MEDS: CEFAZOLIN SODIUM 2 GM/50 ML D5W PREMIX IV (08:04)
--- NOTE | 2025-03-23 08:47 | PM.URSON ---
Urology Surgery Operative Note Operative Note Procedure Date: 03/23/25 Time Out Performed: yes Pre-op Diagnosis: Gross hematuria and bladder lesions Post-op Diagnosis: same as pre-op Procedures performed: 1. Cystoscopy. 2. Transurethral resection of bladder lesions approximately 3 cm. Anesthesia: GETA Primary Surgeon: Ronaldo Alaniz Complications: None Estimated blood loss (mL): 5 Findings: erythematous ulcerated area on the left lateral wall of the bladder. Specimens: Bladder lesions Drains: 20 [place] Carr catheter in the bladder Indications for Procedures: This gentleman who has a history of prostate cancer for which he had external beam radiation therapy, developed gross hematuria. Endoscopy revealed that he had some red raised ulcerated areas on his left wall. He now presents for cystoscopy and transurethral resection of these bladder lesions. He has signed an informed consent after risks were explained. Some of these risks include bleeding, infection, anesthesia, bladder perforation and possible need for further operations to name a few. Detailed description of Procedure: The patient was brought to the operating room and placed on the operating room table in the supine position. SCDs were placed on the lower extremities and turned on and functioning during the entire case. Timeout was done by all parties in the room. We all agreed upon the patient's identification and the planned procedures for this patient. Genn. anesthesia was then administered. The patient was then repositioned into the modified dorsal lithotomy position. All pressure points were satisfactorily padded. Genitalia were sterilely prepped and draped in usual fashion. I started by passing a 26 [place] Olympus resectoscope with a standard bipolar loop electrode per urethra and into the bladder. Anterior urethra was normal. Prostatic urethra was open. Panendoscopy in the bladder revealed the previously noted raised red ulcerated areas on his left lateral wall. I uniformly and deeply resected these areas. The Elick was used to get the tissue out of the bladder and this was sent for permanent sections. The resection bed was coagulated. Other adjacent erythematous areas with concerning vascular patterns were coagulated with the loop electrode. Upon completion, there was no evidence of bleeding. There were no red raised ulcerated areas remaining in the bladder. The scope was then removed. A 20 [place] Carr catheter was placed in the bladder. 10 cc of fluid was placed in the balloon. It drained clearly. The anesthetic was then reversed. He was then transferred to a [facility] bed and wheeled to PACU in stable condition.
[2025-03-23] MEDS: SOLIFENACIN SUCCINATE 10 MG TABLET PO (09:57)
== END 2025-03-23 10:20 | disposition home or self-care (01) ==
PROVIDERS: PCP Family Medicine; Visit Provider Urology
PROC: (CPT 52234; principal; 2025-03-23 08:00)
DX: N30.21 Other chronic cystitis with hematuria (principal); N32.9 Bladder disorder, unspecified; F41.9 Anxiety disorder, unspecified; Z85.46 Personal history of malignant neoplasm of prostate; E78.5 Hyperlipidemia, unspecified; Z79.01 Long term (current) use of anticoagulants; I25.10 Atherosclerotic heart disease of native coronary artery without angina pectoris; F17.210 Nicotine dependence, cigarettes, uncomplicated; I73.9 Peripheral vascular disease, unspecified; Z95.5 Presence of coronary angioplasty implant and graft; Z86.73 Personal history of transient ischemic attack (TIA), and cerebral infarction without residual deficits; N18.9 Chronic kidney disease, unspecified; I12.9 Hypertensive chronic kidney disease with stage 1 through stage 4 chronic kidney disease, or unspecified chronic kidney disease; M19.90 Unspecified osteoarthritis, unspecified site
CPT/HCPCS: 52234; 36415; 88305; J0690; J1100; J2250; J2405; J2704; J3010

== ENCOUNTER 2025-04-11 11:26 | Outpatient (OUT) | payer MEDICARE, SELFPAY ==
--- OUTSIDE RECORDS SUMMARY | 2025-04-11 11:32 | XMS_ITS | Clinical Summary ---
Author Organization [facility] Address [address] [place] [address] Care Team Providers Care Hot Metal Charger Name Role Phone Shaikh AUBREE Storm Primary Care Provider [phone] Ronaldo Alaniz MD Unavailable Constance Durand Unavailable Unavailable Allergies No known active allergies Medications MedicationSigDispense QuantityRefillsLast FilledStart DateEnd DateStatus aspirin 81 mg cap Take by mouth.03/22/2021ctive pravastatin (PRAVACHOL) 10 mg tablet pravastatin 10 mg uxcvig9603/22/2021ctive amLODIPine (NORVASC) 10 mg tablet amlodipine 10 mg isgsuk7303/22/2021ctive ergocalciferol, vitamin D2, (VITAMIN D2 ORAL) Take [...] Problems ProblemNoted DateDiagnosed DateStage 3 chronic kidney zcdewfh9911/19/2022rostate wuacik3611/18/2022 Encounters DateTypeDepartmentCare XbusDhkcnzclprz89/20/2025 9:45 AM EDTOffice Visit Radiation Oncology [address] [place] [address] [place] [address] Hyun Raza MD Cancer of prostate w/med recur risk (T2b-c or [place] 7 or PSA 10-20) (HCC) (Primary Dx)01/18/20252546Cgpreg43/13/2025Travelfrom Last 3 Months Immunizations ImmunizationAdministration DatesNext DueCOVID-19 original vaccine, full dose, monovalent (MODERNA)07/26/2020,06/28/2020 Family History Medical HistoryRelationCommentsOvarian cancerSisterRelationStatusCommentsSister Social History Tobacco UseTypesPacks/DayYears UsedDateSmoking Tobacco: Every UdoOldfdjgvio751 Smokeless Tobacco: Never Tobacco Cessation:Ready to Q uit: Not Asked; Counseling Given: Not Answered Comments:2 ppd x 20 yrs, 1 ppd x 40 yrs Alcohol UseStandard Drinks/WeekCommentsNot Currently0 (1 standard drink = 0.6 oz pure alcohol)PHQ-2AnswerDate RecordedPHQ-2 qxonv4815Area Deprivation IndexAnswerDate RecordedNational Score (1-100), lower number is lower risk61 11/18/2022State Score (1-10), lower number is lower tjuq5823Data from: https://www.neighborhoodatlas.medicine.[facility].edu/. Last address used for dhrcsfhxfin3285 6903411/18/2022Sex and Gender InformationValueDate RecordedSex Assigned at YfqbtUldw04/17/2023 11:44 AM EDTLegal AihSoim0712/06/2021 11:51 AM EDT Gender WyspqbncBgif74/17/2023 11:44 AM EDTSexual VfqjcjhaxokWlqarcgd54/17/2023 11:44 AM EDT Last Filed Vital Signs Vital SignReadingTime TakenCommentsBlood Jjagwxiv026/75001/18/2025 9:27 AM EDT Vtavx881501/18/2025 9:27 AM OMIGrliwamcldz95 ??C (98.6 ??F)01/18/2025 9:27 AM EDT Respiratory Piuf158101/18/2025 9:27 AM EDTOxygen Papihuaakz43%01/18/2025 9:27 AM EDTInhaled Oxygen Concentration--Fomblp76.5 kg (195 lb 1.7 oz)01/18/2025 9:27 AM MFFRhmajq054.8 cm (5' 10 )01/18/2025 9:27 AM EDTBody Mass Index27.9901/18/2025 9:27 AM EDT Plan of Treatment DateTypeDepartmentCare Team (Latest Contact Info)Dpybagdidxj05/20/2025 9:45 AM ESTOffice Visit Radiation Oncology [address] [place] [address] Hyun Raza MD [address] [place] [address] [place] [address] 3 month follow upHealth MaintenanceDue DateLast DoneCommentsAnnual PCP Team Chronic Disease Visit1963Anxiety Uvijtjzom87/24/1964Depression Screening 1963DTaP,Tdap,Td Vaccine (1 - Tdap)1964Pneumococcal Vaccine: 50+ (1 of 2 - PCV)1964Shingrix Vaccine (1 of 2)1995RSV Vaccine (1 - 1-dose 75+ series)2020dvance Directive Acktiimcvy59/01/2025Medicare Advantage Annual Wellness Visit06/01/2024Serum Kcdqotxvia94/19/202506/, 11/05/2023, 10/01/2023, Additional history existsCovid-19 Vaccine ( season) /, 06/28/2020Influenza Vaccine (#1)2025Diabetes Ujuyrynyx11/19/862261/, 11/05/2023, 10/01/2023, Additional history exists Procedures Procedure NamePriorityDate/TimeAssociated DiagnosisCommentsPSA/PROSTSPECAG DIAG Kkjdcqk2401/12/2025 11:43 AM EDT Prostate cancer (HCC) from Last 3 Months Results * PROSTATE-SPECIFIC ANTIGEN DIAGNOSTIC (01/12/2025 11:43 AM EDT)ComponentValue Ref RangeTest MethodAnalysis TimePerformed AtPathologist SignaturePSA1.56<2.60 ng/mL01/12/2025 10:52 PM EDTCMERCY HEALTH WILLARD HOSPITAL LABComment:Total PSA test methodology used is the Electrochemiluminescence Immunoassay by [employer]. Total PSA values by differing methodologies cannot be interchanged.Specimen (Source)Anatomical Location / LateralityCollection Method / VolumeCollection TimeReceived TimeBloodBLOOD SPECIMEN / Unknown Venipuncture / Dpzellm0801/12/2025 11:43 AM EDT01/12/2025 11:43 AM EDT Narrative Authorizing ProviderResult TypeResult StatusG Jose Raza MDLABORATORYFinal ResultPerforming OrganizationAddressCity/State/ZIP CodePhone Number [facility] [address] [address], from Last 3 Months Insurance Care Teams Team MemberRelationshipSpecialtyStart DateEnd Date Shaikh Storm MD [address] [place] [address] PCP - GeneralPrimary Care12/06/21 Ronaldo Alaniz MD [address] [place] [address] ReferringUrology12/06/21 Constance Durand LSW Social Bijubn67/4/22
--- OUTSIDE RECORDS SUMMARY | 2025-04-11 11:32 | XMS_ITS | Clinical Summary ---
Author Organization [facility] Address [address] [place] [address] Phone Care Team Providers Care Counselor Marriage And Family Name Role Phone Shaikh AUBREE Storm Primary Care Provider [phone] Allergies Active AllergyReactionsCriticalityNoted DateCommentsEzetimibeGI intolerance, Nausea/ibqbrnpwFoox96/27/7986Mhsjjlr-Oqo-Wyr Reductase InhibitorsOtherMedium 03/30/2023 Muscle/Joint Pain Medications MedicationSigDispense QuantityRefillsLast FilledStart DateEnd DateStatus aspirin 81 mg EC tablet Take 1 tablet (81 mg) by mouth once daily.Active ergocalciferol (Vitamin D-2) 1.25 MG (72442 UT) capsule Take 1 capsule (1,250 mcg) by mouth 1 (one) time per week.Active HYDROcodone-acetaminophen ([place]) 7.5-325 mg tablet Take 1 tablet by mouth 3 times a day as needed.Active nitroglycerin (Nitrostat) 0.4 mg SL tablet Indications:Chest pain, unspecified typePlace 1 tablet (0.4 mg) under the tongue every 5 minutes if needed for chest pain. May repeat dose every 5 minutes for up to 3 doses total. 100 tablet 11008/18/2023ctive amLODIPine (Norvasc) 10 mg tablet Take 1 tablet (10 mg) by mouth once daily in the morning. Take before meals. 05/31/2024ctive pravastatin (Pravachol) 40 mg tablet Indications:Mixed hyperlipidemia,Bilateral carotid artery disease, unspecified typeTake 1 tablet (40 mg) by mouth once daily at bedtime. 90 tablet 304/25/892119/6Active valsartan (Diovan) 80 mg tablet Indications:Hypertension, unspecified typeTake 1 tablet (80 mg) by mouth once daily. 90 tablet 305/08/411786/6Active clopidogrel (Plavix) 75 mg tablet Take 1 tablet (75 mg) by mouth once daily.Discontinued (Therapy completed) Active Problems ProblemNoted DateDiagnosed DateBMI 28.0-28.9,adult08/18/2023 Assessment & Plan (08/30/2024 1:10 PM EDT): Reviewed the merits of healthy lifestyle choices on overall cardiovascular health. 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)06/04/20239628Lntliuuz89/04/2024rostate tjgimk4306/04/2023 Recurrent UTI06/04/2023Umbilical srkxxw1806/04/2023UTI sngabfpr93/04/2024arotid artery etcixtf5506/04/2023 Assessment & Plan (08/30/2024 1:10 PM EDT): Bilateral carotid endarterectomy Managed by local vascular team Chest pvbnquqq09/04/2024VD (peripheral vascular disease)06/04/2023 Assessment & Plan (08/30/2024 1:10 PM EDT): Right lower extremity END FINDER FORMING DEPARTMENT/stenting Follows routinely with vascular Denies claudication History of [place] (myocardial infarction)06/04/2023[place] (cerebral vascular accident) 06/04/20231264Wprprt78/04/2024 Assessment & Plan (08/30/2024 11:27 AM EDT): Down to less than a pack per day In past: did have benefit nicoderm patches and chantix. Continued every day tobacco use. Have reviewed the negative cardiovascular impact of nicotine. Continues to decline pharmacological assistance. Fatzcvfdzfm61/27/2023 Overview (06/04/2023): Last Assessment & Plan: Reports bradycardia with fatigue and HR in low 40s sometimes. He has been skipping atenolol every now and then because of it. Will discontinue Atenolol Check TSH, EKG H/O prostate ygnckp7104/27/2023HLD (hyperlipidemia)04/27/2023 Overview (06/04/2023): Last Assessment & Plan: Recently started on Pravastatin by Vascular surgery. Check Lipid Panel in one month. Assessment & Plan (08/30/2024 1:09 PM EDT): Moderate intensity statin September 2023 LDL 81, HDL 38 Qdwkerrsnvrr75/27/2023 Overview (06/04/2023): Last Assessment & Plan: Well controlled on current regimen. Has noted lately that his HR is sometimes in the low 40,50 range while onatenolol. At the same he has noticed fatigue too. Discontinue Atenolol. Monitor BP at home w.o it. Will order an EKG to r/o heart block, TSH. Assessment & Plan (08/30/2024 1:09 PM EDT): Optimal in office Prostate qejebc1804/27/2023hronic kidney disease, stage 3b11/19/2022 Overview (06/04/2023): Last Assessment & Plan: CKD 3, due to HTN. Monitor. Cr stable, no change C.w treatment for HTN. Follows Dr Thakkar for CKD. Assessment & Plan (08/30/2024 1:10 PM EDT): Follows routinely with nephrology September 2024 creatinine 1.7 Resolved Problems ProblemNoted DateDiagnosed DateResolved DateHeart aiwcnuq47 Encounters DateTypeDepartmentCare VocjDxvjeagjbir56/09/2025Telephone [facility] [address] [facility] [address] [place] [address] Lissy Kirkpatrick, TRAVEL ATTENDANTS Pre-op Clearance; med holdfrom Last 3 Months Immunizations ImmunizationAdministration DatesNext DueModerna SARS-CoV-2 Umvdnczrcdx14/25/2021 Family History Medical HistoryRelationNameCommentsNo Known ProblemsFatherHeart attackMother Cynthia StutzelRelationNameStatusCommentsFatherMotherLorraine Stutzel Social History Tobacco UseTypesPacks/DayYears UsedDateSmoking Tobacco: Every DayCigarettes0.560 Smokeless Tobacco: Never Tobacco Cessation:Ready to Q uit: No; Counseling Given: Yes Comments:Trying to quit Alcohol UseStandard Drinks/WeekCommentsNever0 (1 standard drink = 0.6 oz pure alcohol)Sex and Gender InformationValueDate RecordedSex Assigned at BirthMale 06/09/2023 3:20 PM ESTLegal WbfTayj93/26/2022 4:46 PM ESTGender IdentityMale 06/09/2023 3:20 PM ESTSexual YojpgiibxfaCvushcrr18/09/2024 3:20 PM EST Last Filed Vital Signs Vital SignReadingTime TakenCommentsBlood Qspenwyq343/6804 11:30 AM EDT Pghds2929 11:16 AM EDTTemperature--Respiratory Rate--Oxygen Saturation-- Inhaled Oxygen Concentration--Zygmmz74.3 kg (199 lb)08/30/2024 11:16 AM EDT Vvfrtk917.8 cm (5' 10 )08/30/2024 11:16 AM EDTBody Mass Index28.55008/30/2024 11:16 AM EDT Plan of Treatment DateTypeDepartmentCare Team (Latest Contact Info)Zsjbjlxaeqm58/01/2026 10:00 AM EDTOffice Visit [facility] [address] [facility] [address] [place] [address] Chaim Grayson, [address] [facility] [address] [place] [address] Health MaintenanceDue DateLast DoneCommentsLipid Panel1945Medicare Annual Wellness Visit (AWV)1945Hepatitis C Tzhjusjzx03/24/1964CKD: Urine Protein Cjdutijet75/24/1965Pneumococcal Vaccine (1 of 2 - PCV)1964DTaP/Tdap/Td Vaccines (1 - Tdap)1967Lung Cancer Cuennoswt00/24/1996Zoster Vaccines (1 of 2)1995RSV High Risk: (Elderly [...]
--- OUTSIDE RECORDS SUMMARY | 2025-04-11 11:32 | XMS_ITS ---
Author Organization [facility] Address [address] [place], [place] [address] Care Team Providers Care Sales Order Processor Name Role Phone Shaikh AUBREE Storm Primary Care Provider [phone] Ronaldo Alaniz MD Unavailable [phone] Constance Durand Unavailable Unavailable Active Problems ProblemNoted DateDiagnosed DateStage 3 chronic kidney nmyiipw61/21/2023Prostate rcstea6411/18/2022 Current Treatment and Therapy Plans No current [...] Cancer Stage:IIB; Clinical stage T1b, N0, M0 [place] Score: 3+4=7 PSA at Diagnosis: 9.95 Clinical [...] you may be interested in: [email or web address] Cnc Specialist Cctv Technician Art Therapy Support Groups- Contact Cnc Specialist for dates and times. Prepared by: Elizabeth Freire APRN.MUSIC VIDEO DIRECTOR Delivered on: November 18, 2022 - This [...]
--- OUTSIDE RECORDS SUMMARY | 2025-04-11 11:32 | XMS_ITS | Clinical Summary ---
Author Organization [facility] Address [id number] [address] [place] [address] Care Team Providers Care Machine Operator Name Role Phone Unavailable Primary Care Provider Unavailabl e Social History Tobacco UseTypesPacks/DayYears UsedDateSmoking Tobacco: Never Assessed CommentsUnknownSex and Gender InformationValueDate RecordedSex Assigned at Not on fileLegal ShqPmxwhv73/23/2024 2:14 PM ESTGender IdentityNot on fileSexual OrientationNot on file Plan of Treatment Health MaintenanceDue DateLast DoneCommentsDepression Ezivobrnb09/24/1958Tobacco Xuwlcqjvu1958DTaP,Tdap and Td Vaccines (1 - Tdap)1964Zoster (Shingles) Vaccine (1 of 2)1995Fall Risk Eokhcomvm11/24/2011RSV ( or age 60+ yrs) (1 - 1-dose 75+ series)2020Influenza Bjuxhyj4401/30/2025 Medical Devices Not on file Insurance
--- OUTSIDE RECORDS SUMMARY | 2025-04-11 11:32 | XMS_ITS | Clinical Summary ---
Author Organization [facility] [place] [facility] Address [address] [place] [address] Care Team Providers Care Apiculturist Name Role Phone Shaikh AUBREE Storm Primary Care Provider [phone] Allergies Active AllergyReactionsCriticalityNoted DateCommentsEzetimibeGI intoleranceHigh 04/27/2023 Other reaction(s): Nausea/vomiting Xpwrojz-Qpl-Mvy Reductase LckhdbjsolWdjvsKndqis11/30/2023 Muscle/Joint Pain Other Reaction(s): lipitor Medications MedicationSigDispense QuantityRefillsLast FilledStart DateEnd DateStatus valsartan (Diovan) 80 mg tablet Take 80 mg by mouth in the morning.06/04/2023ctive amLODIPine (Norvasc) 10 mg tablet Take 1 tablet by mouth in the morning.03/22/2021ctive baclofen (Lioresal) 10 mg tablet Take 10 mg by mouth at bedtime.08/17/2023ctive ergocalciferol (Vitamin D-2) 1.25 MG (08785 Units) capsule Take 1,250 mcg by mouth 1 (one) time per week.Active aspirin 81 mg capsule Indications:PAD (peripheral artery disease)Take 81 mg by mouth in the morning. Restart on Thursday11/22/2023 30 capsule 11/18/2023ctive nitroglycerin (Nitrostat) 0.4 mg SL tablet Refills(s) ctive HYDROcodone-acetaminophen ([place]) 7.5-325 mg tablet 1 tablet.09/08/2023Active clopidogrel (Plavix) [...] completed) Active Problems ProblemNoted DateDiagnosed DateS/P lumbar ibesdukzdqh88/18/2024ge-related nuclear cataract of left eye09/28/2023Nuclear senile xvjddyol22/29/2024Elevated random blood glucose level09/28/2023 Overview (11/05/2023): Last Assessment & Plan: Elevated random blood glucose levels when he had labs earlier this year. Check A1C. Gastroesophageal reflux disease without wmizyaonete06/29/2024 Overview (11/05/2023): Last Assessment & Plan: Reports metallic taste in mouth, early satiety and mild abdominal discomfort. Trial of Omerpazole. Follow up in 2 months. Unintentional weight xlrfiy5109/28/2023 Overview (11/05/2023): Last Assessment & Plan: Weight loss of 7 lbs in 3 months. Reports feeling tired. Check TSH. Lumbar stenosis with neurogenic kjzgljmlafph41/03/2024 Overview (11/05/2023): Last Assessment & Plan: Recommended surgery by NS. He is planning to go ahead with it. Pain is persistent, unchanged. Synovial cyst of lumbar facet joint09/02/2023Lumbar bdwxxsodfvpme07/03/2024MI 28.0-28.9,adult08/18/2023therosclerotic heart disease of [place] coronary artery without angina jcqxvorj33/29/2024 Overview (11/05/2023): Last Assessment & Plan: S/p [...] hips on prolonged ambulation. Patient is on [place] for chronic pain. He was evaluated by NS at [facility] and it seemed like they were concerned about possible opioid induced hyperalgesia. Patient has been trying to wean himself off of [place] but if he does not use it [...] foraminal stenosis Will refer to NS at [facility]. Tobacco abuse06/29/2023 Overview (11/05/2023): Last Assessment & Plan: He is using Nicotine patches currently. Trying to quite smoking. Will call in [employer] for the patient. Patient counseled on smoking/tobacco [...] minutes were spent on Smoking/Tobacco use counseling. Lkaasyr2206/04/2023PH with urinary nqmhlucwskq33/04/2024hest ikyzsaih46/04/2024 Chronic pain epruasay68/04/2024hronic lwaxppntsof63/04/2024Feeling of incomplete bladder vcaynopw93/04/2024Erectile dzvzjxbthey94/04/2024Gross wogxdhwxf37/04/2024arotid artery ydudiik5506/04/2023[place] (cerebral vascular accident)06/04/2023 Overview (11/05/2023): Last Assessment & Plan: Prior hx of ischemic CVA. No residual deficit. On ASA, statin. Heart mcwnyya6206/04/2023AD (peripheral artery disease)06/04/2023 Overview (11/05/2023): Last Assessment & Plan: On ASA, Plavix and statin. [place] 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 PSA Normal 04/[address] Alaniz and Oncology. Xmxnqpnhushk30/27/2023 Overview (11/05/2023): Last Assessment & Plan: Well controlled on current regimen. Has noted lately that his HR is sometimes in the low 40,50 range while onatenolol. At the same he has noticed fatigue too. Discontinue Atenolol. Monitor BP at home w.o it. Will order an EKG to r/o heart block, TSH. Last Assessment & Plan: C/w amlodipine. At goal. Monitor. Peripheral vascular zsxxdnz5104/27/2023 Overview (11/05/2023): Last Assessment & Plan: Recent revascularization 03/23 - with excellent results and improved LLE pain. On ASA, plavix and statin. No ulcers/rest pain HLD (hyperlipidemia)04/27/2023 Overview (11/05/2023): Last Assessment & Plan: Recently started on Pravastatin by Vascular surgery. Check Lipid Panel in one month. Last Assessment & Plan: On pravastatin Check lipid panel . Stage 3 chronic kidney ejirehu5811/19/2022 Overview (11/05/2023): Last Assessment & Plan: CKD 3, due to HTN. Monitor. Cr stable, no change C.w treatment for HTN. Follows Dr Thakkar for CKD. Last Assessment & Plan: Stable. Check labs Prostate hojhav7011/18/2022Intermittent tmyuzsniqiqu35/04/2021 Encounters DateTypeDepartmentCare EyxeXamqtjyozcg70/15/2025 12:40 PM EDTFollow-Up Karon He [facility] Oncology [address] [place] [address] Vasile Watson MD Lumbar spondylosis (Primary Dx); Chronic bilateral low back pain without yskygqzb69/01/2025 - 03/01/2025 11:59 PM EDTHospital Encounter [facility] Radiology External Films [address] [place] [address] Discharge Disposition: Home or Self Care (01)from Last 3 Months Family History Medical HistoryRelationNameCommentsDiabetesFatherRay HansenHypertensionMother Cynthia StutzelRelationNameStatusCommentsFatherRay HansenMotherLorraine Stutzel Social History Tobacco UseTypesPacks/DayYears UsedDateSmoking Tobacco: Every DayCigarettes0.390 Passive Smoke Exposure: PastSmokeless Tobacco: Never Comments:I am in the process of quitting Alcohol UseStandard Drinks/WeekCommentsNot Currently0 (1 standard drink = 0.6 oz pure alcohol)Have not [facility]PAR[facility] UtilitiesAnswerDate RecordedIn the past 12 months has the [place], gas, oil, or water [place] threatened to shut off services in your [...] heating?Not hard at all01/12/2024HQ-2AnswerDate RecordedPatient Health Questionnaire-2 Lvhtg953UT Safety & EnvironmentAnswerDate RecordedWithin the last year, have you been afraid of your partner or ex-partner?No11/17/2023Emotionally AbusedNot on file11/17/2023hysically AbusedNot on file11/17/2023Sexually Abused Not on file11/17/2023In the past year have you been physically or sexually abused?Unrecognized value11/17/2023TransportationAnswerDate RecordedIn the past 12 months, has lack [...] file01/12/2024Sex and Gender InformationValueDate RecordedSex Assigned at JknrzNwko32/03/2024 10:58 AM EDTLegal IprIizz7511/28/2021 12:39 AM EDTGender XdtsmuvmIcmf39/03/2024 10:58 AM EDTSexual OrientationHeterosexual or Pvzraceo90/03/2024 10:58 AM EDT Last Filed Vital Signs Vital SignReadingTime TakenCommentsBlood Ngbcpjdq376/8810 12:56 PM EDT Wakiz185903/15/2025 12:56 PM WBQTzjgzskfxip68.6 ??C (97.8 ??F)01/12/2024 1:09 PM EDTRespiratory Ilrj153711/18/2023 7:01 AM EDTOxygen Dbjeoahfby17%08/18/2024 2:10 PM EDTInhaled Oxygen Concentration--Sltvmv13.8 kg (198 lb)03/15/2025 12:56 PM JVEMfbfyk292.8 cm (5' 10 )08/18/2024 2:10 PM EDTBody Mass Index28.41008/18/2024 2:10 PM EDT Plan of Treatment Health MaintenanceDue DateLast DoneCommentsMedicare Annual Wellness (AWV) 1945Pneumococcal Vaccine: 50+ Years (1 of 2 - PCV)1964Adult Tetanus 1967Zoster Vaccines (1 of 2)1995COVID-19 Vaccine (3 - season), 06/28/2020Influenza Vaccine (#1)2025 Depression Ehsmcqqxw49Fall Risk Inaxgalib99 HIB VaccinesAged OutNo longer eligible based on [...] Procedures Procedure NamePriorityDate/TimeAssociated DiagnosisCommentsCT TRANSFER OF OUTSIDE WKIIPKitfgum49/01/2025 12:00 AM EDT from Last 3 Months [...]
--- OUTSIDE RECORDS SUMMARY | 2025-04-11 11:32 | XMS_ITS | Clinical Summary ---
Author Organization [facility] Address [address] [place] [address] Care Team Providers Care Object Oriented Developer Name Role Phone Brian Avalos MD Primary Care Provider [phone] Kayley Ward SENIOR ACCOUNT EXECUTIVE Unavailable [phone] Allergies Active AllergyReactionsCriticalityNoted DateCommentsEzetimibeGI intolerance 04/27/20236454YtndioiAnhphWreiva96/30/2023 Muscle/Joint Pain Other Reaction(s): Other Muscle/Joint Pain ??Other Reaction(s): lipitor Medications MedicationSigDispense QuantityRefillsLast FilledStart DateEnd DateStatus pravastatin (Pravachol) 40 MG tablet Take 40 mg by mouth at bedtime.Active ergocalciferol (Vitamin D-2) 1.25 MG (20619 UT) capsule Take 1.25 mg by mouth [...] nuclear cataract of left eye 09/28/2023Nuclear senile stemkydx20/29/2024Elevated random blood glucose level 09/28/2023 Assessment & Plan (09/28/2023 9:46 AM EDT): Elevated random blood glucose levels when he had labs earlier this year. Check A1C. Unintentional weight esdofd5909/28/2023 Assessment & Plan (09/28/2023 9:45 AM EDT): Weight loss of 7 lbs in 3 months. Reports feeling tired. Check TSH. Gastroesophageal reflux disease without laytsvuuduq24/29/2024 Assessment & Plan (01/20/2024 6:53 PM EDT): Taking Omeprazole 40mg Reports he is doing very well. Denies complaints. Assessment & Plan (09/28/2023 9:47 AM EDT): Reports metallic taste in mouth, early satiety and mild abdominal discomfort. Trial of Omerpazole. Follow up in 2 months. Lumbar hcualgfcvzsec38/03/2024Lumbar stenosis with neurogenic claudication 09/02/2023 Assessment & Plan (07/13/2024 1:50 PM EST): Following with Pain Management for Lumbar Stenosis. Recently reduced dosage of Vidalia. Feels symptoms are well controlled. Continue current regimen as directed by PM. Assessment & Plan (12/08/2023 11:52 AM EDT): S/p lumbar surgery. Well healed surgical scars. Pain is well controlled Assessment & Plan (09/28/2023 9:45 AM EDT): Recommended surgery by NS. He is planning to go ahead with it. Pain is persistent, unchanged. Synovial cyst of lumbar facet joint09/02/2023oronary artery disease involving nikolski coronary artery of nikolski heart without angina tkaudmzw00/29/2024 Assessment & Plan (01/20/2024 6:42 PM EDT): [...] Chronic right-sided low back pain with right-sided fccilpjg91/29/2024Tobacco abuse06/29/2023 Assessment & Plan (01/20/2024 6:54 PM [...] Chronic bilateral low back pain with bilateral /29/2024 Assessment & Plan (06/29/2023 7:14 PM EST): Chronic LBP with claudication on ambulation. His symptoms were presumed to be multifactorial and claudication resulting from vascular insufficiency along with neurological claudication. His left LE pain has sig improved since vascular surgery in 03/23. He continues to exp pain in low back, with radiation to b/l hips on prolonged ambulation. Patient is on Vidalia for chronic pain. He was evaluated by NS at [facility] and it seemed like they were concerned about possible opioid induced hyperalgesia. Patient has been trying to wean himself off of Vidalia but if he does not use it [...] foraminal stenosis Will refer to NS at [facility]. CVA (cerebral vascular accident)06/04/2023 Assessment & Plan (06/29/2023 6:57 PM EST): Prior hx of ischemic CVA. No residual deficit. On ASA, statin. Carotid artery nloomhz4806/04/2023AD (peripheral artery disease)06/04/2023 Assessment & Plan (09/28/2023 9:43 AM EDT): On ASA, Plavix and statin. [place] 20[place] at [facility]. Leg pain has improved and is doing well Heart uttyxru5806/04/2023PH (benign prostatic hyperplasia)06/04/2023History of SC (myocardial infarction)06/04/2023HLD (hyperlipidemia)04/27/2023 Assessment & Plan (07/13/2024 [...] surgery. Check Lipid Panel in one month. Btvuoydeiqfy31/27/2023 Assessment & Plan (07/13/2024 1:50 PM EST): [...] to r/o heart block, TSH. Peripheral vascular mftxlbe3204/27/2023 Assessment & Plan (06/29/2023 7:01 PM EST): Recent revascularization 03/23 - with excellent results and improved LLE pain. On ASA, plavix and statin. No ulcers/rest pain Assessment & Plan (04/27/2023 12:00 PM EST): S/p revascularization, percutaneous and stent placed last month in March. Doing well. No active complaints to offer Follows up with Dr Justin. H/O prostate jflumn0404/27/2023 Assessment & Plan (06/29/2023 7:06 PM EST): S/p radiation for it. PSA Normal 04/[address] Alaniz and Oncology. Olnhhwerrvd50/27/2023 Assessment & Plan (04/27/2023 12:03 PM EST): Reports bradycardia with fatigue and HR in low 40s sometimes. He has been skipping atenolol every now and then because of it. Will discontinue Atenolol Check TSH, EKG Prostate phqlaj9504/27/2023Stage 3 chronic kidney jwycogr6411/19/2022 Assessment & Plan (07/13/2024 1:50 PM EST): [...] DateDiagnosed DateResolved DatePeripheral arterial disease Encounters DateTypeDepartmentCare AmrqOxnbuulgpyb01/23/2025Clinisync Result Encounter [facility] Unsolicited Provider, Generic External Data 02/13/2025linisync Result Encounter [facility] External [facility] Unsolicited Provider, Generic External Data 5Clinisync Result Encounter [facility] External [facility] Unsolicited Provider, Generic External Data from Last 3 Months Immunizations ImmunizationAdministration DatesNext DueModerna SARS-CoV-2 Rafeimwkppt59/25/2021 Family History Medical HistoryRelationNameCommentsDiabetesFatherHeart diseaseMotherRelationName StatusCommentsFatherDeceasedMotherDeceasedcataract surgery Social History Tobacco UseTypesPacks/DayYears UsedDateSmoking Tobacco: Every DayCigarettes0.365 Passive Smoke Exposure: CurrentSmokeless Tobacco: Never Tobacco Cessation:Ready to Q uit: Not Asked; Counseling Given: Not Answered Comments:Pt down to 4 per day, required to quit smoking before back surgery could be done. Alcohol UseStandard Drinks/WeekCommentsNot Currently0 (1 standard drink = 0.6 oz pure alcohol)jgndgvB7966 Health LiteracyAnswerDate RecordedHow often do you need to have someone help you when you read instructions, pamphlets, or other written material from your doctor or pharmacy?Never01/20/2024Social Connection and Isolation PanelAnswerDate RecordedIn a typical week, how many times do you talk on the phone with family, friends, or neighbors?Patient ajkenpqt43/21/2024How often do you get together with friends or relatives?Patient scmeaiwa25/21/2024 How often do you attend congregational or voodoo services?Patient sutqhqcw19/21/2024 Do you belong to any clubs or organizations such as congregational groups, unions, fraternal or athletic groups, or school groups?Patient /21/2024How often do you attend meetings of the clubs or organizations you belong to?Patient iruvlyez11/21/2024re you , , , , never , or living with a partner?Patient eucxdunr49/21/2024UDIT-CAnswerDate RecordedQ1: How often do you have a [...] like food, housing, medical care, and heating?Patient bevjjvjj52/21/2024HQ-2AnswerDate Recorded Patient Health Questionnaire-2 Ailbu119Exercise Vital SignAnswerDate RecordedOn average, how many days per week do you engage in moderate to strenuous exercise (like a brisk walk)?Patient kwcztsiq51/21/2024On average, how many minutes do you engage in exercise at this level?Patient /21/2024 Hunger Vital SignAnswerDate RecordedWithin the past 12 months, you worried that your food would run out before you got the money to buymore.Patient declined 01/20/2024Within the past 12 months, the food you bought just didn't last and you didn't have money to get more.Patient hppaxyll34/21/2024RAPARE - TransportationAnswerDate RecordedIn the past 12 months, [...] InformationValueDate RecordedSex Assigned at BirthNot on fileLegal RvuWhid0908/13/2022 11:33 PM EDTGender IdentityNot on fileSexual OrientationNot on file Last Filed Vital Signs Vital SignReadingTime TakenCommentsBlood Ialfjodv560/70007/13/2024 1:16 PM EST Reddr646107/13/2024 1:16 PM VHIKrhgrohhwtp30.5 ??C (97.7 ??F)07/13/2024 1:16 PM ESTRespiratory Rivt053507/13/2024 1:16 PM ESTOxygen Arkfrzyidb81%07/13/2024 1:16 PM ESTInhaled Oxygen Concentration--Uzhlrr22.2 kg (201 lb)07/13/2024 1:16 PM EST Yoizka305.8 cm (5' 10 )07/13/2024 1:16 PM ESTBody Mass Index28.8407/13/2024 1:16 PM EST Plan of Treatment Health MaintenanceDue DateLast DoneCommentsPneumococcal Vaccine: 65+ Years (1 of 1 - PCV)1995COVID-19 Vaccine (3 - 2024- season)5007/26/2020, 06/25/2020Influenza Vaccine (#1)2025 Procedures Procedure NamePriorityDate/TimeAssociated DiagnosisCommentsCT LUMBAR SPINE WO IV PMAJNTLK71/23/2025 11:31 AM EDT [facility] URINE T PROTEIN CREAT TWAZHQcsrdeq82/15/2025 12:30 PM EDT [facility] URINALYSIS, WITH MGIATYZTDBWGgrthtz82/15/2025 12:30 PM EDT [facility] PTH, GJJBYCHUITCTCRFzhwmia28/15/2025 10:59 AM EDT [facility] VITAMIN D 25 GFGmnnhsg66/15/2025 10:59 AM EDT [facility] LFTVIRQEIgvbinw25/15/2025 10:59 AM EDT [facility] IRON [facility] SXLSBezaxew35/15/2025 10:59 AM EDT ALL ETEUBKVRSHtyoggg62/15/2025 10:59 AM EDT ALL URIC YXFGExranxd65/15/2025 10:59 AM EDT ALL RENAL FUNCTION WROIXErlbubl00/15/2025 10:59 AM EDT [facility] CBC WITH PLATELET NO PVSPTTHHMTDORuyowww67/15/2025 10:59 AM EDT [facility] PSA SERPL-NKXUDiapjbj46/14/2025 11:43 AM EDT from Last 3 Months Results * CT lumbar spine wo IV contrast (02/21/2025 11:31 AM EDT)Anatomical Region LateralityModalitySpine, L-spineComputed TomographySpecimen (Source)Anatomical Location / LateralityCollection Method / VolumeCollection TimeReceived Time 02/21/2025 11:31 AM EDT Narrative 02/21/2025 11:34 AM EDT [facility] ?[address] ? [place] [address] ? CT Scan Report ? Signed ? Patient: YESENIA BROUSSARD ?MR#: [id number] ?? : 1945 ?Acct:[id number] ?? Age/Sex: 79 / M ?ADM Date: //25 ?? Loc: CT ? Attending Dr: Loco Farias SENIOR ACCOUNT EXECUTIVE ? Ordering Physician: Loco Farias NP ?? Date of Service: 02/21/25 ?? Procedure(s): CT lumbar spine wo con ?? Accession Number(s): [id number] ? cc: Shaikh Joanna Storm ? [facility] ? [address] ? [place] [address] ? Patient Name: ?? YESENIA BROUSSARD ? MRN: [facility]:[id number] ? date: 1945 ?Sex: M ?? Assigned Patient Location: CT ?? Current Patient Location: CT ?? Accession/Order Number: [id number] ?? Exam Date: 02/21/2025 ??10:02 ?Report Date: 02/21/2025 ??11:31 ? At the request of: ?? LOCO ??DINORA ??SENIOR ACCOUNT EXECUTIVE ? Procedure: ??CT lumbar spine wo con [...] M.D. ??02/21/2025 11:31 AM ? Dictation Location: RADIO-PC-30 ? Electronically authenticated by: [id number] ??Y ?? Date: 02/21/2025 ??11:31 ? Dictated By: ?Lorelei Waite M.D. ? Signed By: ?02/21/25 1134 ? DD/ 113 ? TD/TT: ? Cell Room Operator: Procedure Note Radiology, Radiologist, MD - 02/21/[address] [address] [address] Scan Report Signed Patient: YESENIA BROUSSARD RMR#: [id number] : 1945cct:[id number] Age/Sex: 79 / MADM Date: 02/21/25 Loc: CT Attending Dr: Loco Farias NP Ordering Physician: Loco Farias NP Date of Service: 02/21/25 Procedure(s): CT lumbar spine wo con Accession Number(s): [id number] cc: Shaikh Joanna Storm The [address] [address] Patient Name: YESENIA BROUSSARD MRN: [id number] date: 1945 Sex: M Assigned Patient Location: CT Current Patient Location: CT Accession/Order Number: [id number] Exam Date: 02/21/2025 10:02 Report Date: 02/21/2025 [...] Waite M.D. 02/21/2025 11:31 AM Dictation Location: [place] [address] Electronically authenticated by: [id number] Y Date: 1:31 Dictated By: Lorelei Waite M.D. Signed By:02/21/25 1134 DD/ 1131 TD/TT: Cell Room Operator: Authorizing ProviderResult TypeResult StatusGeneric External Data ProviderIMG CT PROCEDURESFinal Result * (ABNORMAL) [facility] URINE T PROTEIN CREAT RATIO (02/13/2025 12:30 PM EDT)Component ValueRef RangeTest MethodAnalysis TimePerformed AtPathologist SignatureTOTAL PROTEIN URINE HMBCIQ469.8(H)<=11.9 mg/dLTBHCREATININE URINE VQJRWD908.6120.00 - 300.00 mg/dLTBHPROTEIN CREATININE RATIO URINE0.69TBHSpecimen (Source) Anatomical Location / LateralityCollection Method / VolumeCollection Time Received Time02/13/2025 12:30 PM EDT02/13/2025 12:45 PM EDT Narrative [facility] - 02/13/2025 2:58 PM EDT Authorizing ProviderResult TypeResult StatusGeneric External Data Provider CLINISYNCFinal ResultPerforming OrganizationAddressCity/State/ZIP CodePhone Number [facility] * (ABNORMAL) [facility] URINALYSIS, WITH MICROSCOPIC (02/13/2025 12:30 PM EDT) ComponentValueRef RangeTest MethodAnalysis TimePerformed AtPathologist SignatureCOLOR URINELT. YELLOWYELLOWTBHCLARITY URINESL CLOUDYCLEARTBHSPECIFIC GRAVITY URINE1.0251.005 - 1.025TBHPH URINE5.55.0 - 9.0TBHPROTEIN EILOI857(A) NEG/TRACE mg/dLTBHGLUCOSE URINE UANEGATIVENEGATIVE mg/dLTBHBILIRUBIN URINE SMALL(A)NEGATIVETBHKETONES URINETRACE(A)NEGATIVE mg/dLTBHBLOOD URINETRACE-I NEGATIVETBHNITRITE URINENEGATIVENEGATIVETBHUROBILINOGEN URINE0.20.2 - 1.0 EU/dLTBHLEUKOCYTE ESTERASE URINELARGE(A)NEGATIVETBHTBH AQS02-60(A)NONE SEEN #/HPFTBHTBH RBC0-20 - 2 #/HPFTBHBACTERIA URINESMALL(A)NONE SEEN #/HPFTBHMUCUS URINENONE SEENNONE SEENTBHSQUAMOUS EPITHELIAL CELL URINERARENONE/RARE #/LPFTBH CRYSTALS SEEN?None SeenNone Seen #/HPFTBHCAST SEEN?NONE SEENNONE SEEN #/LPFTBH Specimen (Source)Anatomical Location / LateralityCollection Method / Volume Collection TimeReceived Time02/13/2025 12:30 PM EDT02/13/2025 12:45 PM EDT Narrative [facility] - 02/13/2025 1:32 PM EDT Authorizing ProviderResult TypeResult StatusGeneric External Data Provider CLINISYNCFinal ResultPerforming OrganizationAddressCity/State/ZIP CodePhone Number [facility] * [facility] VITAMIN D 25 [place] (02/13/2025 10:59 AM EDT)ComponentValueRef RangeTest MethodAnalysis TimePerformed AtPathologist SignatureVITAMIN D43.3ng/mLTBH Comment: <20 ng/mL Vit D deficient 20-<30 ng/mL Vit D insufficient 30-100 ng/mL ??Vit D sufficient >100 ng/mL Potential Toxicity Specimen (Source)Anatomical Location / LateralityCollection Method / Volume Collection TimeReceived Time02/13/2025 10:59 AM EDT02/13/2025 11:03 AM EDT [facility]ative [facility] - 02/13/2025 1:10 PM EDT Authorizing ProviderResult TypeResult StatusGeneric External Data Provider CLINISYNCFinal ResultPerforming OrganizationAddressCity/State/ZIP CodePhone Number [facility] * [facility] (02/13/2025 10:59 AM EDT)ComponentValueRef RangeTest MethodAnalysis TimePerformed AtPathologist SignatureTBH IRON80.065.0 - 175.0 ug/dLTBHTBH TOTAL IRON BINDING NEQTKHIS985.0250.0 - 450.0 ug/dLTBHTBH PERCENT IRON OIWUAIIWYV09.6%TBHSpecimen (Source)Anatomical Location / Laterality Collection Method / VolumeCollection TimeReceived Time02/13/2025 10:59 AM EDT 02/13/2025 11:03 AM EDT Narrative [facility] - 02/13/2025 12:10 PM EDT Authorizing ProviderResult TypeResult StatusGeneric External Data Provider CLINISYNCFinal ResultPerforming OrganizationAddressty/State/ZIP CodePhone Number [facility] * (ABNORMAL) [facility] PTH, INTRAOPERATIVE (02/13/2025 10:59 AM EDT)ComponentValueRef RangeTest MethodAnalysis TimePerformed AtPathologist SignaturePTH, NXPEVP55(A) 15 - 65 pg/mLTBHComment: Performed at: ?? - [facility] ??[id number] Measurement And Sensing Technician: Rojelio Nelson PhD, Phone: ??[phone] Specimen (Source)Anatomical Location / LateralityCollection Method / Volume Collection TimeReceived Time02/13/2025 10:59 AM EDT02/13/2025 11:03 AM EDT Narrative [facility] - 02/14/2025 10:09 AM EDT Authorizing ProviderResult TypeResult StatusGeneric External Data Provider CLINISYNCFinal ResultPerforming OrganizationAddressty/State/ZIP CodePhone Number [facility] * (ABNORMAL) [facility] CBC WITH PLATELET NO DIFFERENTIAL (02/13/2025 10:59 AM EDT) ComponentValueRef RangeTest MethodAnalysis TimePerformed AtPathologist SignatureTBH WBC8.04.0 - 11.0 10 3/uLTBHTBH RBC4.18(L)4.70 - 6.10 10 6/uLTBH TBH HGB12.9(L)14.0 - 18.0 g/dLTBHTBH HCT39.3(L)42.0 - 54.0 %TBHTBH MCV94.080.0 - 94.0 fLTBHTBH MCH30.925.9 - 34.0 pgTBHTBH MCHC32.829.9 - 35.2 g/dLTBHTBH RDW 13.611.0 - 15.0 %TBHTBH RVG573810 - 450 10 3/uLTBHTBH MPV10.39.5 - 13.5 fLTBH Specimen (Source)Anatomical Location / LateralityCollection Method / Volume Collection TimeReceived Time02/13/2025 10:59 AM EDT02/13/2025 11:03 AM EDT Narrative [facility] - 02/13/2025 11:10 AM EDT Authorizing ProviderResult TypeResult StatusGeneric External Data Provider CLINISYNCFinal ResultPerforming OrganizationAddressty/State/ZIP CodePhone Number [facility] * [facility] FERRITIN (02/13/2025 10:59 AM EDT)ComponentValueRef RangeTest Method Analysis TimePerformed AtPathologist TanxziiljUAJUVKOF90.026.0 - 388.0 ng/mL TBHSpecimen (Source)Anatomical Location / LateralityCollection Method / Volume Collection TimeReceived Time02/13/2025 10:59 AM EDT02/13/2025 11:03 AM EDT Narrative [facility] - 02/13/2025 1:10 PM EDT Authorizing ProviderResult TypeResult StatusGeneric External Data Provider CLINISYNCFinal ResultPerforming OrganizationAddressty/State/ZIP CodePhone Number [facility] * ALL URIC ACID (02/13/2025 10:59 AM EDT)ComponentValueRef RangeTest Method Analysis TimePerformed AtPathologist SignatureURIC ACID6.63.5 - 7.2 mg/dLTBH Specimen (Source)Anatomical Location / LateralityCollection Method / Volume Collection TimeReceived Time02/13/2025 10:59 AM EDT02/13/2025 11:03 AM EDT Narrative [facility] - 02/13/2025 11:39 AM EDT Authorizing ProviderResult TypeResult StatusGeneric External Data Provider CLINISYNCFinal ResultPerforming OrganizationAddressty/State/ZIP CodePhone Number [facility] * (ABNORMAL) ALL RENAL FUNCTION PANEL (02/13/2025 10:59 AM EDT)ComponentValueRef RangeTest MethodAnalysis TimePerformed AtPathologist JsikjawzdJPPMPE356697 - 145 mmol/LTBHPOTASSIUM5.2(H)3.5 - 5.1 mmol/AVPKOYAYQUJK44728 - 107 mmol/LTBH CARBON LZADIYY60.621.0 - 32.0 mmol/LTBHANION GAP14.2JYKOQPPQOK40195 - 106 mg/dLTBHBLOOD UREA NUBAKIZS24.0(H)7.0 - 18.0 mg/dLTBHCREATININE1.93(H)0.70 - 1.30 mg/dLTBHTBH EGFR-AF LHWGDVWX36(L)>=60 mL/min/1.73m 2TBHTBH EGFR-NON AF SQTVJSNN42(L)>=60 mL/min/1.73m 2TBHBUN CREATININE RATIO14.7JXYXUVPZRW5.28.5 - 10.1 mg/dLTBHPHOSPHORUS3.92.6 - 4.7 mg/dLTBHALBUMIN LEVEL3.83.4 - 5.0 g/dLTBH Specimen (Source)Anatomical Location / LateralityCollection Method / Volume Collection TimeReceived Time02/13/2025 10:59 AM EDT02/13/2025 11:03 AM EDT Narrative [facility] - 02/13/2025 11:39 AM EDT Authorizing ProviderResult TypeResult StatusGeneric External Data Provider CLINISYNCFinal ResultPerforming OrganizationAddressCity/State/ZIP CodePhone Number [facility] * ALL MAGNESIUM (02/13/2025 10:59 AM EDT)ComponentValueRef RangeTest Method Analysis TimePerformed AtPathologist SignatureMAGNESIUM2.01.8 - 2.4 mg/dLTBH Specimen (Source)Anatomical Location / LateralityCollection Method / Volume Collection TimeReceived Time02/13/2025 10:59 AM EDT02/13/2025 11:03 AM EDT Narrative [facility] - 02/13/2025 11:39 AM EDT Authorizing ProviderResult TypeResult StatusGeneric External Data Provider CLINISYNCFinal ResultPerforming OrganizationAddressCity/State/ZIP CodePhone Number [facility] * [facility] PSA SERPL-MCNC (01/12/2025 11:43 [...] EDT Specimen Type: BLOOD SPECIMEN Ordering Facility: [facility] ?Address: [address] [place] [address] Original Ordering Provider: Hyun NAZARIO Authorizing ProviderResult TypeResult StatusGeneric External Data Provider CLINISYNCFinal ResultPerforming OrganizationAddressCity/State/ZIP CodePhone [place] [facility] [place] [address] [place] [address] [place] [address] from Last [address] [place] [address] Care Teams Team MemberRelationshipSpecialtyStart DateEnd Date Brian Avalos MD PCP - GeneralFamily Medicine01/12/24 Kayley Ward NP Nurse PractitionerFamily Medicine01/12/24
--- OUTSIDE RECORDS SUMMARY | 2025-04-11 11:32 | XMS_ITS | Encounter Summary ---
Author Organization [facility] Address [address] [address] Care Team Providers Care Road Worker Name Role Phone Shaikh AUBREE Malik Primary Care Provider [phone] Shaikh AUBREE Malik Primary Care Provider [phone] Brian Avalos MD Primary Care Provider [phone] Kayley Ward NP Unavailable [phone] Encounter Details DateTypeDepartmentCare Team (Latest Contact Info)Vmuzopcrtoz44/18/2024Clinisync Result Encounter [facility] Unsolicited Provider, Generic External Data Social History Tobacco UseTypesPacks/DayYears UsedDateSmoking Tobacco: Every DayCigarettes0.365 Smokeless Tobacco: Never Comments:Thinking about quit ting Alcohol UseStandard Drinks/WeekCommentsNot Currently0 (1 standard drink = 0.6 oz pure alcohol)[id number] Health LiteracyAnswerDate RecordedHow often do you need to have someone help you when you read instructions, pamphlets, or other written material from your doctor or pharmacy?Never01/20/2024Social Connection and Isolation PanelAnswerDate RecordedIn a typical week, how many times do you talk on the phone with family, friends, or neighbors?Patient tpggqibg92/21/2024How often do you get together with friends or relatives?Patient gmqtplde29/21/2024 How often do you attend alevism or confucianism services?Patient fowhyqwy30/21/2024 Do you belong to any clubs or organizations such as alevism groups, unions, fraternal or athletic groups, or school groups?Patient /21/2024How often do you attend meetings of the clubs or organizations you belong to?Patient rvphesjb56/21/2024re you , , , , never , or living with a partner?Patient /21/2024UDIT-CAnswerDate RecordedQ1: How often do you have a [...] like food, housing, medical care, and heating?Patient oiauzufy85/21/2024HQ-2AnswerDate Recorded Patient Health Questionnaire-2 [id number] Vital SignAnswerDate RecordedOn average, how many days per week do you engage in moderate to strenuous exercise (like a brisk walk)?Patient pivtpqqs03/21/2024On average, how many minutes do you engage in exercise at this level?Patient iugczywj44/21/2024 Hunger Vital SignAnswerDate RecordedWithin the past 12 months, you worried that your food would run out before you got the money to buymore.Patient declined 01/20/2024Within the past 12 months, the food you bought just didn't last and you didn't have money to get more.Patient nrbyqxca29/21/2024RAPARE - TransportationAnswerDate RecordedIn the past 12 months, [...] or living in a senior living (including now)?No 01/20/2024Sex and Gender InformationValueDate RecordedSex Assigned at BirthNot on fileLegal YtxOham4508/13/2022 11:33 PM EDTGender IdentityNot on fileSexual OrientationNot on filedocumented as of this encounter Functional Status * AUDIT-C ScoreAnswerDate of PpmvutqubeZyaack859/21/2024 2:38 PM EDGeovanna Generic * Q1: How often do you have a drink containing alcohol?AnswerDate of Assessment CaiaevEcbbx86/21/2024 2:38 PM EDGeovanna Generic * Q2: How many drinks containing alcohol do you have on a typical day when you are drinking?AnswerDate of AssessmentAuthorPatient does not drink01/20/2024 2:38 PM Maureen Generic * Q3: How often do you have six or more drinks on one occasion?AnswerDate of FivrrjskhqTiosboCyatr21/21/2024 2:38 PM Maureen Generic * Over the past 2 weeks, how often have you been bothered by any of the following problems?QuestionAnswerDate of AssessmentAuthorLittle interest or pleasure in doing thingsNot at all01/20/2024 5:52 PM Sugar Le MA Feeling down, depressed, or hopelessNot at all01/20/2024 5:52 PM Sugar Le MAPatient Health Questionnaire-2 [id number] 5:52 PM Sugar Le MA * QuestionAnswerDate of AssessmentAuthorTrouble falling or staying asleep, or sleeping too muchSeveral days12/08/2023 11:00 AM Shaikh Fuentes MDFeeling tired or having little energySeveral days12/08/2023 11:00 AM Shaikh Fuentes MDPoor appetite or overeatingNot at all12/08/2023 11:00 AM Shaikh Fuentes MDFeeling bad about yourself - or that you are a failure or have let yourself or your family downSeveral days12/08/2023 11:00 AM EDTFawwad, Rendon, MDTrouble concentrating on things, such as reading the newspaper or watching televisionNot at all12/08/2023 11:00 AM Shaikh Fuentes MDMoving or speaking so slowly that other people could have noticed? Or the opposite - being so fidgety or restless that you have been moving around a lot more than usual.Not at all12/08/2023 11:00 AM Shaikh Fuentes MDThoughts that you would be better off or hurting yourself in some wayNot at all12/08/2023 11:00 AM Shaikh Fuentes MDPatient Health Questionnaire-9 [id number] 11:00 AM Shaikh Fuentes MD * How difficult have these problems made it for you to do your work, take care of things at home, or get along with other people?AnswerDate of Assessment AuthorNot difficult at all12/08/2023 11:00 AM Shaikh Fuentes MD documented as of this encounter Plan of Treatment Not on file documented as of this encounter Procedures Procedure NamePriorityDate/TimeAssociated DiagnosisCommentsNUCLEAR STRESS TEST EXERCISE (CARD)06/18/2023 12:00 PM EST documented in this encounter Results * NUCLEAR STRESS TEST EXERCISE (CARD) (06/18/2023 12:00 PM EST)Anatomical Region LateralityModalityRadiographic ImagingSpecimen (Source)Anatomical Location / LateralityCollection Method / VolumeCollection TimeReceived Time06/18/2023 12:00 PM EST Narrative 06/19/2023 11:20 AM EST Interpreted By: ??Inge Dickerson, ??and Timur Alicea STUDY: MYOCARDIAL PERFUSION STRESS TEST WITH LEXISCAN ?? Performing facility: [facility], [address] [place] [address], [address], [place] [address] [facility] Provider: ??Sylvester Grayson DO, FACC PCP: ??Dr. Agus MALIK Supervising provider: ??Inge Dickerson MD ?? INDICATION: HTN, Bilateral Carotid, Chest Pain ?? HISTORY: Gender: ??M; Age: ??77 y/o ; Height: ??HT 177.8 cm cm; Weight: ?? WT 89.812 kg kg. ?? CAD; ??High Cholesterol; ??Abnormal EKG; RBBB ??Previous [place]; ??Family HX CAD; ??Chest Pain; ??COPD; ??PAD, CVA, Carotid Disease, CKD ?? Currently smoking. ?? Cardiac catheterization. ??PTCA 1990s RCA. ?? COMPARISON: No comparison. ? ACCESSION NUMBER(S): [id number] ?? ORDERING CLINICIAN: VANDANA GRAYSON ?? TECHNIQUE: ONE DAY protocol. Stress injection: Date:06/18/23, 33.1 mCi of Myoview IV 20 seconds after rapid injection of Lexiscan. Rest injection: Date: 06/18/23, 10 mCi of Myoview IV at rest. The patient had a rapid injection of ??0.4 mg of Lexiscan IV over 10 seconds. Imaging was performed by ??gated tomographic technique. Reason for Lexiscan: PVD? ?? STRESS TEST DATA: Resting heart rate was 86 BPM. Resting blood pressure was 154/94 mmHg. Peak blood pressure was 144/82 mmHg. Peak heart rate was 111 BPM. ?? TEST TERMINATED DUE TO: ??Protocol completed ?? FINDINGS: STRESS TEST RESULTS: ?? Resting electrocardiogram revealed normal sinus rhythm. There were no significant ischemic ECG changes or dysrhythmias. The patient did not have chest pains/symptoms during procedure. There was a normal recovery phase. ?? IMAGING RESULTS: ?? Image quality was good. Rest and stress tomographic images were reviewed and revealed normal perfusion without evidence of ischemia, myocardial infarction, or left ventricular dilatation with stress. Overall left ventricular systolic function appeared to be normal without regional wall motion abnormalities. Ejection fraction was 58%. TID is 1.01 and is normal. There were no evidence of ??attenuation artifact. ?? IMPRESSION: Normal Lexiscan Myoview cardiac perfusion stress test. No evidence of ischemia or myocardial infarction by perfusion imaging. Normal left ventricular systolic function, ejection fraction 58%. No previous study available for comparison. ?? Signed by: Inge Dickerson 06/19/2023 11:20 AM Dictation workstation: ?? [id number] Procedure Note Radiology, Radiologist, - 06/19/2023 Interpreted By: Inge Dickerson and Beal Gina STUDY: MYOCARDIAL PERFUSION STRESS TEST WITH LEXISCAN Performing facility: [facility], [address] [place] [address], [address], [place] [address] [facility] Provider: Sylvester Grayson DO, [facility] PCP: Dr. Agus MALIK Supervising provider: Inge Dickerson MD INDICATION: HTN, Bilateral Carotid, Chest Pain HISTORY: Gender: M; Age: 77 y/o ; Height: HT 177.8 cm cm; Weight: WT 89.812 kg kg. CAD; High Cholesterol; Abnormal EKG; RBBB Previous WI; Family HX CAD; Chest Pain; COPD; PAD, CVA, Carotid Disease, CKD Currently smoking. Cardiac catheterization. PTCA 1990s RCA. COMPARISON: No comparison. ACCESSION NUMBER(S): [id number] ORDERING CLINICIAN: VANDANA GRAYSON TECHNIQUE: ONE DAY [...] Inge Dickerson 06/19/2023 11:20 AM Dictation workstation: [id number] Authorizing ProviderResult TypeResult StatusGeneric External Data ProviderIMG XR PROCEDURESFinal Result documented in this encounter Visit Diagnoses Not on filedocumented in this encounter Care Teams Team MemberRelationshipSpecialtyStart DateEnd Date Shaikh Malik MD PCP - GeneralInternal Medicine Shaikh Malik MD PCP - GeneralInternal Medicine Brian Avalos MD PCP - GeneralFamily Medicine01/12/24 Kayley Ward NP Nurse PractitionerFamily Medicine01/12/24documented as of this encounter
--- OUTSIDE RECORDS SUMMARY | 2025-04-11 11:35 | XMS_ITS | CCD ---
Author Organization [facility] Care Team Providers Care Groover Runner Name Role Phone Sterling Vizcaino Primary Care Physician [phone] Theo Thakkar Unavailable Dotty MAK [facility] Primary Care Provider Barbara Johnston MD Unavailable [phone] YAHAIRA STORMIKH Primary Care Physician [phone] Dotty MAK [facility] Primary Care Provider Barbara Johnston MD Unavailable Constance Beverly Unavailable Unavailable Dotty MAK [facility] Primary Care Provider Barbara Johnston MD Unavailable [phone] Constance Beverly Unavailable Unavailable MD Dotty [facility] Primary Care Provider MD Zeinab Justice Attending Provider [phone] MD Lyla Nazario Attending Provider LAKSHMIPATHY ., NARENDRANATH Attending Kiera vailable LAKSHMIPATHY ., NARENDRANATH Admitting Kiera vailable JOHN .HUBERT Consulting Unavailable [facility] Primary Care Unavailable OLIVA ., DR HOSEA Davison Admitting Unavailable LOPEZ MENJIVAR Consulting Unavailable OLIVA ., DR HOSEA Davison Attending Unavailable [facility] Primary Care Unavailable OLIVA ., DR HOSEA Davison Admitting Unavailable OLIVA ., DR HOSEA Davison Consulting Unavailable [facility] Primary Care Unavailable KRISTEN ., DR HOSEA Davison Attending Unavailable [facility] Consulting Unavailable HOBBS ., LOPEZ Consulting Unavailable OLIVA ., DR HOSEA Davison Attending Unavailable OLIVA ., DR HOSEA Davison Admitting [facility] Primary Care Unavailable OLIVA ., DR HOSEA Davison Consulting Unavailable OLIVA ., DR HOSEA Davison Admitting Unavailable OLIVA ., DR HOSEA Davison Consulting Un[facility] Primary Care Unavailable OLIVA ., DR HOSEA Davison Attending Unavailable [facility], [facility] Consulting Unavailable JONATHAN MARTIN Consulting Unavailable HOBBS ., LOPEZ Consulting Unavailable OLIVA ., DR HOSEA Davison Admitting [facility] Primary Care Unavailable OLIVA ., DR HOSEA Davison Attending Unavailable HOBBS ., LOPEZ Consulting Unavailable OLIVA ., DR HOSEA Davison Attending Unavailable OLIVA ., DR HOSEA Davison Admitting [facility] Primary Care Unavailable OLIVA ., DR HOSEA Davison Attending Unavailable OLIVA ., DR HOSEA Davison Admitting Un[facility] Primary Care Unavailable OLIVA ., DR HOSEA Davison Consulting Unavailable HOBBS ., LOPEZ Consulting Unavailable OLIVA ., DR HOSEA Davison Attending Unavailable OLIVA ., DR HOSEA Davison Admitting Un[facility] Primary Care Unavailable OLIVA ., DR HOSEA Davison [facility] Primary Care Unavailable OLIVA ., DR HOSEA Davison Attending Unavailable OLIVA ., DR HOSEA Davison Admitting Unavailable OLIVA ., DR HOSEA Davison Consulting [facility] Primary Care Unavailable OLIVA ., DR HOSEA Davison Attending Unavailable [facility], [facility] Primary Care Unavailable JOHNSTON ., DR JIMENEZ Consulting Unavailable JOHNSTON ., DR JIMENEZ Attending Unavailable JOHNSTON ., DR JIMENEZ Admitting Unavailable VIVIAN, THEO Consulting Unavailable VIVIANNIXONUL Attending Unavailable VIVIAN, THEO Admitting Unavailable [facility] Primary Care Unavailable RUT KIRBY Attending Unavailable RUT KIRBY Admitting Unavailable [facility] Primary Care Unavailable MD Justice Storm Primary Care Provider MD Justice Storm Other Provider ABE Ferrera Attending Provider [phone] Anesthesiologist, Temporary Attending Provider U prabhu Bonnie Tan Unavailable MD Lyla Nazario Attending Provider MD Jose Martin Mchugh Attending Provider [phone] MD Theo Thakkar Attending Provider Jose Martin Mchugh Unavailable [phone] MD Dotty [facility] Primary Care Provider Anesthesiologist, Temporary Attending Provider U MD Lyla Carvalho Attending Provider MD Jose Martin Mchugh Attending Provider MD Theo Thakkar Attending Provider MD Yahaira Stormikh Primary Care Provider MD Justice Storm Attending Provider Dotty MAK [facility] Primary Care Provider JOSE NICHOLS Referring [facility] Primary Care Unavailable KODI REYNOLDS Attending Unavailable Dotty MAK [facility] Primary Care Provider CHAIM GRAYSON Referring Unavailable [facility] Primary Care Unavailable CHAIM GRAYSON Referring Unavailable [facility] Primary Care Unavailable CHAIM GRAYSON Referring Unavailable [facility] Primary Care Unavailable Nicolette MAK, Adalid Powers Attending Unavailable Dotty MAK [facility] Primary Care Provider MD Yahaira Stormikh Primary Care Provider MD Justice Storm Attending Provider MD Barbara Johnston Referring Provider Yahaira Storm MDikh Primary Care Provider NO FAMILY, PHYSICIAN Primary Care Provider Unava ilMD Theo Grigsby Attending Provider MS. ALMA WARDY DENZEL Primary Care P hysician Barbara JOHNSTON Attending [facility]available [facility]av[facility] e BRITNI, CLAIRE E Admitting Unavailable BRITNI, CLAIRE E Attending Unavailable BRITNI, CLAIRE E Admitting Unavailable BRITNI, CLAIRE E Attending Unavailable Galthao, Karime J Admitting Unavailable Galthao, Karime Stone Attending Unavailable [facility]avail[facility] e Barbara JOHNSTON Attending Unavailable BRITNI, CLAIRE E Attending Unavailable Galthao, Karime Stone Attending Unavailable [facility] Unavailaudie Avalos MD, Brian Primary Care Provider Ed SIDING STAPLER, Nasir Unavailable [phone] Brian Avalos MD Primary Care Provider Farooq Quezada PA-C Emergency Provider NASIR WARD Attending Unavailabl SHAIKH Schmidt Attending Unavailable SHAIKH STORM Attending Unavailable NASIR WARD Attending Unavailabl e NASIR WARD Attending Unavailabl AMBROSIO Galvan Primary Care Physician Brian Avalos MD Primary Care Provider Farooq Quezada PA-C Emergency Provider Theo Thakkar MD Attending Provider OrzeCherie byrne X Attending Unavailable Orzech Cherie X Admitting Unavailable BRITNI, CLAIRE E Attending Unavailable BRITNI, CLAIRE E Admitting Unavailable Barbara JOHNSTON Attending Unavailable Shaikh Storm MD Primary Care Provider [phone] BRITNI, CLAIRE E Attending Unavailable BRITNI, CLAIRE E Admitting Unavailable Ward SIDING STAPLER, [facility] Unavailable Barbara Johnston MD Unavailable Genoveva NAZARIO Attending Unavailable FAWWAD, CARREON Primary Care Unavailable Genoveva NAZARIO Referring Unavailable DOTTY, [facility] Unavailable Bailey MAK, Brian Primary Care Provider Ed HANSON, Nasir Unavailable [phone] Bailey MAK, Brian Primary Care Provider Vivian MAK, Theo Attending Provider CLAIRE JAMES Attending Unavailable Barbara Johnston MD Attending Provider Savannah DO, [facility] Primary Care Provider [facility] DO, [facility] Attending Provider JOSE HECTOR Attending Unavailable CHAIM GRAYSON Referring Unavailable DOTTY [facility] Primary Care Unavailable VASILE MADERA Referring Unavailable VASILE MADERA Attending Unavailable NICKOLAS BENÍTEZ Attending Unavailable Brian Avalos Primary Care Unavailable Farooq Quezada Attending Unavailable Farooq Quezada Admitting Unavailable Barbara Johnston Attending Unavailable Barbara Johnston Admitting Unavailable Theo Thakkar Admitting Unavailable Brian Avalos Primary Care Unavailable Theo Thakkar Attending Unavailable Dotty MAK, [facility] Primary Care Provider Dotty MAK, [facility] Primary Care Provider Barbara JOHNSTON Attending Unavailable Barbara JOHNSTON Attending Unavailable PRESTON, Barbara Warner Referring Unavailable PRESTON, Barbara Warner Admitting Unavailable Barbara JOHNSTON Attending Unavailable Barbara JOHNSTON Attending Unavailable Barbara JOHNSTON Attending Unavailable LUCINA WARDTANY [facility] Unavailabl e CLAIRE JAMES Attending Unavailable ED [facility] Unavailaudie e Allergies Allergy ClassificationReported Allergen(s)Allergy TypeDate of OnsetReaction(s) Facility (20 sources)ezetimibe; Translations: [EZETIMIBE]Drug Cqkbavm23-76-0584IY intolerance, Nausea/vomitingOhiohealth (8 sources)HMG-CoA reductase inhibitor; Translations: [COHQAER-LYA-TOO REDUCTASE INHIBITORS]Drug Jjsiimzoapu05-58-8000QbiwhEakiqorsfvSCCI Hospital Lima Work Phone: (16 sources)HMG-CoA reductase inhibitorDrug Hubiozukmik06-58-1216AhqikQKBP Healthcare Medications Current Medications MedicationDrug Class(es)DatesSig (Normalized)Sig (Original)acetaminophen 325 mg oral tablet (14 sources)Start: 64-98-7151dbja 2 tablets by mouth every eight hours acetaminophen (Tylenol) 325 MG tablet Take 650 mg by mouth every 8 (eight) hours 11/18/2023 Activeacetaminophen 325 mg / HYDROcodone bitartrate 5 mg oral tablet (20 sources)Opioid AgonistStart: 33-73-0541zruv 1 tablet by mouth once daily as neededStart: 01-14-2024 End: 74-02-6983DMQBHvyhgym-acetaminophen ([place]) 5-325 MG tablet TAKE 1 TABLET BY MOUTH 2 TO 3 TIMES A DAY FOR 14 DAYS 01/14/2024 07/13/2024 DiscontinuedStart: 01-08-2023 End: 15-69-7286vylv 1 tablet by mouth three times daily as needed for pain Hydrocodone-Acetaminophen 7.5-325 mg tablet Discontinued 1 TAB PO Three times daily as needed for Pain February 06, 2023 12:00am February 29, 2024 11:39amStart: 11-09-2021 End: 74-38-5465rvwj 1 tablet by mouth twice daily as needed for painHydrocodone- Acetaminophen 5-325 mg tablet Discontinued 1 TAB PO Twice daily as needed for Pain 2021 12:00am February 06, 2023 11:57amStart: 11-09-2021 End: 88-77-8803FIQFZtiezkp-acetaminophen (NORCO) 5-325 mg per tablet 11/09/2021 12/15/2023 Discontinued (Discontinued by another Health Care Provider)Start: 22-52-7229aecl 1 tablet by mouth every six hoursNorco 5/325 Tab Oral, q6hr, Refill(s) 0 Start Date: 03/22/21 Status: Ordered Medication Dispense Status: Completed Total Allowed Fills: 1 Fills Dispensed: 0Start: 80-29-0994tgwt 1 tablet by mouth every six hoursNorco 5/325 Tab Oral, q6hr, Refill(s) 0 Start Date: 03/22/21 Status: Ordered Repeat number: 1Start: 11-97-9723Gpaun 5/325 Tab Oral, q6hr, Refill(s) 0 Start Date: 03/22/21 Status: OrderedStart: 03-22-2021 [place] 5/325 Tab Oral, q6hr, Refill(s) 0 Start Date: 03/22/21 Status: Orderedtake 1 tablet by mouth every six hours as neededNorco 5-325 MG 1 tablet as needed Orally every 6 hrs ActiveComment on above:TAKE 1 TABLET BY MOUTH TWICE DAILY NEEDED FOR LUMBAR RADICULOPATHYTAKE 1 TABLET BY MOUTH THREE TIMES DAILY NEEDED MUST LAST 30 DAYSamLODIPine 10 mg oral tablet (20 sources)Dihydropyridine Calcium Channel BlockerStart: 07-51-1160jevr 1 mg by mouth once dailyamLODIPine 5 mg Tab mg tab(s), Oral, Daily, Refills(s) 0 Start Date: 03/22/21 Status: OrderedStart: 03-22-2021 End: 72-61-0846xxRYKUJfvy 10 mg Tab 10 mg = 1 tab(s), Refills(s) 0 Start Date: 04/18/24 Status: Ordered MedicationDispense Status: Completed Total Allowed Fills: 1 Fills Dispensed: 0Comment on above:amlodipine 10 mg tabletamoxicillin 500 mg oral capsule (2 sources)Penicillin-class AntibacterialStart: 83-80-9581hfuu 1 capsule by mouth every eight hoursAmoxicillin 500 MG 1 capsule Orally every 8 hrs for 5 day(s) Mar, Activeaspirin 81 mg delayed release oral tablet (20 sources)Platelet Aggregation Inhibitor, Nonsteroidal Anti-inflammatory Drug Start: 41-12-4392dkds 1 tablet by mouth once dailyStart: 37-67-8477qizi 1 mg by mouth every four hoursaspirin 81 mg oral capsule mg cap(s), Oral, q4hr, Refills(s) 0 Start Date: 03/22/21 Status: OrderedMedication Dispense Status: Completed Total Allowed Fills: 1 Fills Dispensed: 0Start: 06-07-7435mjkxofs 81 mg cap Take by mouth. 03/22/2021 ActiveASPIRIN 81 MG chewable tablet Chew 81 mg in the morning. Activetake 1 tablet by mouth once dailyAspirin 81 81 MG 1 tablet Orally Once a day ActiveComment on above:Take by mouth.cephalexin 500 mg oral capsule (1 source)Cephalosporin AntibacterialStart: 08-08-2024 End: 28-25-9473zgzl 1 capsule by mouth every twelve hoursKeflex 500 mg Cap 500 mg = 1 cap(s), Oral, q12hr, X 7 day(s), # 14 cap(s), Refills(s) 0, Pharmacy: [facility]/pharmacy #[id number], 178, cm, 08/08/24 12:38:00 EDT, Height/Length Dosing, 90.4, kg, 08/08/24 12:38:00 EDT, Weight Dosing Start Date: 08/08/24 Stop Date: 08/15/24 Status: Orderedclopidogrel 75 mg oral tablet (20 sources)P2Y12 Platelet InhibitorStart: 03-23-2023 End: 99-81-4690rezsvhltvkp 75 mg Tab 75 mg = 1 tab(s) Start Date: 04/21/23 Status: Ordered Medication Dispense Status: Completed Total Allowed Fills: 1 Fills Dispensed: 0Clopidogrel Bisulfate ActiveCranberry preparation (4 sources)Non-Standardized Food Allergenic Extract, Non-Standardized Plant Allergenic ExtractStart: 27-34-3720Ogw cranberry Refill(s) 0 Start Date: 09/18/23 Status: Orderedcyclobenzaprine hydrochloride 10 mg oral tablet (2 sources)Muscle RelaxantStart: 19-96-7343cycp 1 tablet by mouth once daily at bedtimedesmopressin acetate 0.1 mg oral tablet (7 sources)Vasopressin Analog, Factor VIII ActivatorStart: 05-05-2023 End: 60-87-6659ncou 1 tablet by mouth once daily at bedtimedesmopressin (DDAVP) 0.1 mg tablet Take 1 tablet (100 mcg) by mouth once daily at bedtime. 05/05/2023 08/30/2024 Discontinued (Therapy completed)Start: 04-21-2023 End: 01-79-6437qzen 0.5 tablet by mouth at bedtimedesmopressin 0.1 mg oral tablet 0.05 mg = 0.5 tab(s), Oral, As Directed, take a half tab at bedtime, X 10 day(s), # 5 tab(s), Refills(s) 0, Pharmacy: [facility] #[id number], 178, cm, 04/21/23 8:36:00 EST, Height/Length Dosing, 92, kg, 04/21/23 8:36:00 EST, Weight Dosing Start Date: 04/21/23 Stop Date: 05/01/23 Status: OrdereddiazePAM 5 mg oral tablet (3 sources)BenzodiazepineStart: 03-03-2022 End: 46-62-0007bacrvBQD (VALIUM) 5 mg tablet Indications: Malignant neoplasm of prostate (HCC) Take 1 tablet by mouth as directed for 12 days. Take 1 tablet by mouth one hour prior to procedure. 12 tablet 0 03/03/2022 03/15/2022 Active Comment on above:Take 1 tablet by mouth as directed for 12 days. Take 1 tablet by mouth one hour prior to procedure.doxycycline hyclate 100 mg oral capsule (9 sources)Tetracycline-class DrugStart: 04-07-2024 End: 47-25-8581gwmy 1 capsule by mouth twice dailydoxycycline hyclate 100 mg Cap 100 mg = 1 cap(s), Oral, BID, X 7 day(s), # 14 cap(s), Refills(s) 0,Pharmacy: [facility] #[id number], 178, cm, 09/18/23 10:55:00 EDT, Height/Length Dosing, 92, kg,09/18/23 10:55:00 EDT, Weight Dosing Start Date: 04/07/24 Stop Date: 04/14/24 Status: OrderedStart: 02-29-2024 End: 58-93-9153furt 1 tablet by mouth twice dailyDoxycycline Hyclate 100 mg tablet Discontinued 100 MG PO Twice daily 14 February 29, 2024 12:00am August 15, 2024 10:38amergocalciferol 1.25 mg oral capsule (20 sources)Provitamin D2 CompoundStart: 03-11-2024 End: 12-80-3156uhal 1 capsule by mouth every weekStart: 01-78-6400eesq 1 capsule by mouth every weekErgocalciferol (Vitamin D2) 1,250 mcg (50,000 unit) capsule Active 0 .ROUTE .COMPLEX March 11, 2024 10:14am TAKE 1 CAPSULE BY MOUTH ONCE A WEEKStart: 65-16-3152kjzv 1 capsule by mouth every weekErgocalciferol (Vitamin D2) 1,250 mcg (50,000 unit) capsule Active 0 .ROUTE .COMPLEX March 11, 2024 9:14am TAKE 1 CAPSULE BY MOUTH ONCE A WEEKStart: 09-15-2023 End: 08-67-3237Vylvgdrjotzknl (Vitamin D2) 1,250 mcg (50,000 unit) capsule Discontinued 77958 UNIT PO Once a week 14 06September 15, 2023 5:43pm March 11, 2024 10:15amStart: 09-15-2023 End: 53-61-1083sjvf 96013 [IU] by mouth every weekErgocalciferol (Vitamin D2) Active 10070 UNIT PO Once a week September 15, 2023 5:43pmStart: 21-74-6159lzej 1 capsule by mouth every weekErgocalciferol 1.25 MG (43876 UT) 1 capsule Orally Q week for 90 days Mar, Activetake 1 capsule by mouth every week ergocalciferol (Vitamin D-2) 1.25 MG (61654 UT) capsule Take 1 capsule (1,250 mcg) by mouth 1 (one)time per week. Activeergocalciferol, vitamin D2, (VITAMIN D2 ORAL) (4 sources)ergocalciferol, vitamin D2, (VITAMIN D2 ORAL) Take by mouth. Active ergocalciferol, vitamin D2, (VITAMIN D2 ORAL) Take by mouth. 0 ActiveComment on above:Take by mouth.ezetimibe 10 mg oral tablet (2 sources)Dietary Cholesterol Absorption InhibitorStart: 10-56-2718ajqm 1 mg by mouth once dailyezetimibe 10 mg Tab mg tab(s), Oral, Daily, Refills(s) 0 Start Date: 03/25/21 Status: Orderedferrous sulfate 325 mg oral tablet (2 sources)Start: 59-32-2477koun 1 tablet by mouth every other daygabapentin 100 mg oral capsule (20 sources)Anti-epileptic AgentStart: 02-11-2023 End: 16-15-5910qizi 1 capsule by mouth twice dailygabapentin (Neurontin) 100 mg capsule Take 1 capsule (100 mg) by mouth 2 times a day. 02/11/2023 08/30/2024 Discontinued (Therapy completed)Start: 02-06-2023 End: 66-39-0893mwpu 1 capsule by mouth once dailyGabapentin 100 mg Capsule Discontinued 100 MG PO Daily February 06, 2023 12:00am August 15, 086682:38am Start: 10-97-8290hoph 1 mg by mouth once dailyGabapentin Active MG PO Daily February 06, 2023 12:00amhydroCHLOROthiazide 12.5 mg / lisinopril 20 mg oral tablet (2 sources)Thiazide Diuretic, Angiotensin Converting Enzyme InhibitorStart: 76-46-9697awsu 1 tablet by mouth once dailyhydrochlorothiazide-lisinopril 12.5 mg-20 mg Tab tab(s), Oral, Daily, Refill(s) 0 Start Date: 03/22/21 Status: Orderediv contrast (will be provided with radiology test) (3 sources)Start: 01-06-2023 End: 38-16-2542rf contrast (will be provided with radiology test) [...] link. 1 Each 01/07/2023 ActiveStart: 11-21-2022 End: 60-86-2043xj contrast (will be provided with radiology test) [...] Each 0 11/21/2022 11/22/2022 ActiveStart: 11-19-2022 End: 38-86-7853we contrast (will be provided with radiology test) [...] mg oral tablet (2 sources)Leukotriene Receptor AntagonistStart: 14-75-7288uuvi 1 mg by mouth once dailymontelukast 10 mg Tab mg tab(s), Oral, Daily, Refills(s) 0 Start Date: 03/25/21 Status: Orderednitroglycerin 0.4 mg sublingual tablet (15 sources)Nitrate VasodilatorStart: 75-37-8219iedcvdahardgt 0.4 mg sublingual Tab Refills(s) 0 Start Date: 09/18/23 Status: Ordered Medication Dispense Status: Completed Total Allowed Fills: 1 Fills Dispensed: 0Start: 08-18-2023 End: 73-41-4465Mppiefhsdj XL 5mg (4 sources)Oxybutinin XL 5mg ONCE A DAY ActiveOxybutinin XL 5mg Activeoxybutynin chloride 5 mg oral tablet (19 sources)Cholinergic Muscarinic AntagonistStart: 15-13-5132yqqc 2 tablets by mouth at bedtimeoxybutynin 5 mg Tab 10 mg = 2 tab(s), Oral, Bedtime, # 60 tab(s), Refills(s) 3, Pharmacy: [facility] #72, 178, cm, 02/11/23 14:50:00 EDT, Height/Length Dosing, 92, kg, 02/11/23 14:50:00 EDT, Weight Dosing Start Date: 02/11/23 Status: OrderedStart: 02-06-2023 End: 60-19-7477kbdl 1 tablet by mouth once daily at bedtimeOxybutynin Chloride 5 mg Tablet Discontinued 5 MG PO Daily at bedtime February 06, 2023 12:00am October 15, 2023 9:17amStart: 10-58-3845wsdn 1 tablet by mouth at bedtimeoxybutynin 5 mg Tab 5 mg = 1 tab(s), Oral, Bedtime, # 30 tab(s), Refills(s) 2, Pharmacy: [facility] #[id number], 178, cm, 12/03/22 15:00:00 EDT, Height/Length Dosing, 93, kg, 12/03/22 15:00:00 EDT, Weight Dosing Start Date: 12/03/22 Status: Orderedpravastatin sodium 40 mg oral tablet (20 sources)HMG-CoA Reductase InhibitorStart: 03-23-2023 End: 07-11-8059zzlohchcgvs 40 mg Tab Refills(s) 0 Start Date: 04/21/23 Status: Ordered Medication Dispense Status:Completed Total Allowed Fills: 1 Fills Dispensed: 0Start: 03-22-2021 End: 30-77-2467opke 1 tablet by mouth once dailyPravastatin 10 mg tablet Discontinued 10 MG PO Daily November 22, 2021 12:00am March 23, 2023 10:03am CADComment on above:pravastatin 10 mg tabletsildenafil 50 mg oral tablet (7 sources)Phosphodiesterase 5 InhibitorStart: 04-21-2023 End: 10-31-1402twyyrhbelo (Viagra) 50 mg tablet Take 1 tablet (50 mg) by mouth if needed. 04/21/2023 08/30/2024 Discontinued (Therapy completed)tadalafil 20 mg oral tablet (4 sources)Phosphodiesterase 5 InhibitorStart: 44-52-9872Tteehz 20 mg Tab 20 mg = 1 tab(s), Oral, As Directed, Do not exceed 20mg within 48 hours., # 30 tab(s), Refills(s) 1, Pharmacy: [facility] #[id number], 178, cm, 07/07/23 9:25:00 EST, Height/Length Dosing, 92, kg, 07/07/23 9:25:00 EST, Weight Dosing Start Date: 07/07/23 Status: Orderedvalsartan 80 mg oral tablet (20 sources)Angiotensin 2 Receptor BlockerStart: 06-04-2023 End: 23-05-4147etyyefgag 80 mg Tab Refills(s) 0 Start Date: 09/18/23 Status: Ordered Medication Dispense Status: Completed Total Allowed Fills: 1 Fills Dispensed: 0Varenicline (Chantix Starting Month Box) 0.5 mg (11)- 1 mg (42) tablets,dose pack (1 source)Start: 42-71-9830ccdl 1 tablet by mouth onceVarenicline (Chantix Starting Month Box) 0.5 mg (11)- 1 mg (42) tablets,dose pack Active 0 PO per pa ckage directions February 29, 2024 12:00am PO PER PKG DIRvitamin B12 (2 sources)Vitamin P60Rnbzc: 84-38-7569Qafahle B12 Refills(s) 0 Start Date: 03/22/21 Status: OrderedVitamin D2 50,000 intl units (1.25 mg) oral capsule (11 sources)Start: 72-13-4360qawh 1 capsule by mouth every weekVitamin D2 50,000 intl units (1.25 mg) oral capsule International_Unit cap(s), Oral, qWeek Start Date: 04/21/23 Status: Ordered Medication Dispense Status: Completed Total Allowed Fills: 1 Fills Dispensed: 0Start: 57-34-4715ypkd 1 capsule by mouth every weekVitamin D2 50,000 intl units (1.25 mg) oral capsule International_Unit cap(s), Oral, qWeek Start Date: 04/21/23 Status: Ordered Repeat number: 1Start: 51-22-5367auuy 1 capsule by mouth every weekVitamin D2 50,000 intl units (1.25 mg) oral capsule International_Unit cap(s), Oral, qWeek Start Date: 04/21/23 Status: Ordered Completed/Discontinued Medications MedicationDrug Class(es)DatesSig (Normalized)Sig (Original)atenolol 50 mg oral tablet (20 sources)beta-Adrenergic BlockerStart: 03-22-2021 End: 03-17-1891dnpk 1 tablet by mouth once dailyAtenolol 50 mg tablet Discontinued 50 MG PO Daily November 22, 2021 12:00am October 15, 2023 9:17amComment on above:atenolol 50 mg tabletbaclofen 10 mg oral tablet (20 sources)gamma-Aminobutyric Acid-ergic AgonistStart: 11-04-2021 End: 19-62-4805uchd 1 tablet by mouth once daily at bedtimeBaclofen 10 mg tablet Discontinued 10 MG PO Daily at bedtime November 22, 2021 12:00am August 15, 2024 10:38am muscle spasmsStart: 11-04-2021 End: 91-23-5509iifj 1 mg by mouth three times dailybaclofen 10 mg Tab mg tab(s), Oral, TID, Refills(s) 0 Start Date: 11/04/21 Status: OrderedComment on above: baclofen 10 mg tabletciprofloxacin 500 mg oral tablet (2 sources)Quinolone AntimicrobialStart: 74-88-9952tyaz 1 tablet by mouth once dailyCipro 500 mg Tab 500 mg = 1 tab(s), Oral, Daily, Take 1 tablet the day before the procedure and 1 tablet after the procedure, # 2 tab(s), Refills(s) 0, Pharmacy: [facility]/pharmacy #[id number], 178, cm, 08/30/2511:03:00 EDT, Height/Length Dosing, 90, kg, 08/29/24 12:03:00 EDT, Weight Dosing Start Date: 02/21/25 Status: Ordered Medication Dispense Status: Completed Quantity: 2.0 Unit: tab(s) Total Allowed Fills: 1 Fills Dispensed: 0Start: 05-13-2022 End: 50-73-8040hiuj 1 tablet by mouth twice dailyciprofloxacin HCl (CIPRO) 500 mg tablet Take 1 tablet by mouth twice daily for 14 days. 20 tablet 05/27/2022 ActiveComment on above:Take 1 tablet by mouth twice daily for 14 days.lisinopril 20 mg oral tablet (20 sources)Angiotensin Converting Enzyme InhibitorStart: 03-13-2025 End: 49-03-8812fcio 1 tablet by mouth once dailyLisinopril 20 mg tablet Discontinued 20 MG PO Daily March 13, 2025 12:00am March 14, 2025 11 :06amStart: 03-25-2021 End: 12-89-0724dpojbkjsqf (ZESTRIL, PRINIVIL) 20 mg tablet q 24 HR. 03/25/2021 12/15/2023 Discontinued (Discontinued by another Health Care Provider)Start: 03-25-2021 End: 28-76-9400yolt 1 tablet by mouth once dailyLisinopril 20 mg tablet Discontinued 20 MG PO Daily November 22, 2021 12:00am October 15, 2023 9:17am HTN Comment on above:q 24 HR.ofloxacin 3 mg/ml ophthalmic solution (6 sources)Quinolone AntimicrobialStart: 07-14-2024 End: 56-62-9332xttk 0.3 drop(s) into the eye(s) every six hoursOfloxacin 0.3 % drops Discontinued 2 DROPS EYE-LEFT Every 6 hours 5 0 July 14, 2024 1:00am August 15, 2024 10:38am 2 drps Left Eye;Start: 07-14-2024 End: 16-73-8969rtkj 0.3 drop(s) into the eye(s) every six hoursOfloxacin 0.3 % drops Discontinued 2 DROPS EYE-LEFT Every 6 hours July 14, 2024 1:00am August 15, 2024 10:38am 2 drps Left Eye;omeprazole 40 mg delayed release oral capsule (17 sources)Proton Pump InhibitorStart: 09-28-2023 End: 82-86-3549rrie 1 capsule by mouth once dailyOmeprazole 40 mg capsule,delayed release(DR/EC) Discontinued 40 MG PO Daily October 15, 2023 12:00am February 29, 2024 11:41amoxyCODONE hydrochloride 5 mg oral tablet (9 sources)Opioid AgonistStart: 12-02-2023 End: 50-80-6045ymlw 1 tablet by mouth every six hours as neededoxyCODONE IR (ROXICODONE) 5 mg immediate release tablet TAKE 1 TO 2 TABLETS BY MOUTH EVERY 6 HOURS NEEDED for up to 7 (SEVEN) days 12/02/2023 01/18/2025 Discontinued (Discontinued by Patient)pregabalin 50 mg oral capsule (20 sources)Start: 03-13-2025 End: 60-03-0954budz 1 capsule by mouth twice dailyPregabalin (Lyrica) 50 mg capsule Discontinued 50 MG PO Twice daily March 13, 2025 12:00am March 14, 2025 11:06amStart: 01-08-2023 End: 15-71-1081bbor 1 capsule by mouth once daily at bedtimepregabalin (LYRICA) 75 mg capsule Take 1 capsule by mouth once daily. At bedtime. 0 01/08/202312/14 Discontinued (Discontinued by another Health Care Provider)Start: 11-22-2021 End: 79-81-5833lgwm 1 capsule by mouth twice dailyPregabalin 50 mg capsule Discontinued 50 MG PO Twice daily November 22, 2021 12:00am February 06, 2023 11:58am nerve painStart: 59-65-0123eids 1 capsule by mouth twice dailyLyrica 25 mg Cap 25 mg = 1 cap(s), Oral, BID, # 60 cap(s), Refills(s) 0 Start Date: 11/04/21 Status: OrderedComment on above:Take 50 mg by mouth twice daily.Take 1 capsule by mouth once daily. At bedtime.Take 50 mg by mouth two times a day.regadenoson (Lexiscan) injection 0.4 mg (2 sources)Start: 06-18-2023 End: 06-40-3207xwsecpbwgea (Lexiscan) injection 0.4 mgterazosin 10 mg oral capsule (20 sources)alpha-Adrenergic BlockerStart: 10-04-2021 End: 35-03-1532liuj 1 capsule by mouth once daily at bedtimeTerazosin 10 mg capsule Discontinued 10 MG PO Daily at bedtime November 22, 2021 12:00am October 15, 2023 9:17am ProstateStart: 74-34-4422ufkw 1 mg by mouth once daily at bedtime terazosin 2 mg Cap mg cap(s), Oral, Once a day (at bedtime), Refills(s) 0 Start Date: 03/22/21 Status: Orderedvarenicline 1 mg oral tablet (13 sources)Partial Cholinergic Nicotinic AgonistStart: 10-22-2023 End: 11-03-0794tuqd 1 tablet by mouth onceVarenicline Tartrate (Chantix Starting Month Box) 0.5 mg (11)- 1 mg (42) tablets,dose pack Discontinued 0 PO per package directions February 29, 2024 12:00am August 15, 2024 10:38am PO PER PKG DIRVarenicline Tartrate (Chantix Starting Month Box) 0.5 mg (11)- 1 mg (42) tablets,dose pack (3 sources)Start: 02-29-2024 End: 77-22-3774ripe 1 tablet by mouth onceVarenicline Tartrate (Chantix Starting Month Box) 0.5 mg (11)- 1 mg (42) tablets,dose pack Discontinued 0 PO per package directions February 29, 2024 12:00am August 15, 2024 10:38am PO PER PKG DIRStart: 57-76-7034rjhp 1 tablet by mouth onceVarenicline Tartrate (Chantix [...] Problems Active Problems Problem ClassificationProblemDateDocumented DateEpisodic/ChronicAbdominal hernia (20 sources)Umbilical hernia; Translations: [Umbilical hernia without obstruction or gangrene]Onset: 585971-67-3187RflesalsCqbrc cerebrovascular disease (20 sources)Cerebrovascular accident; Translations: [Cerebral infarction, unspecified]Onset: 772614-79-4663ImrlxexJfvwrsz disorders (20 sources)Anxiety; Translations: [Anxiety disorder, unspecified]Onset: 707009-46-0932HlfkhkzOjdpzv of prostate (20 sources)Malignant neoplasm of prostate; Translations: [Malignant tumor of prostate]Onset: 51-49-8502YfguijrPyrqcxu on above:hx radiation treatmentsCancer of prostate (20 sources)History of malignant neoplasm of prostate; Translations: [Personal history of malignant neoplasm ofprostate]Onset: 81-73-3889YbhwjinuRmkhmrds (20 sources)Age-related nuclear cataract of left eye; Translations: [Age-related nuclear cataract, left eye]Onset: 847643-21-5014KpxprkmAkoetsv kidney disease (20 sources)Chronic kidney disease stage 3; Translations: [Stage 3 chronic kidney disease]Onset: 350084-39-1558ZoqwyzeNemwojf kidney disease (6 sources)Chronic kidney disease; Translations: [Chronic kidney disease, stage III (moderate)]Onset: 10-24-2021 Resolved: 90-62-4190Pvivmekv atherosclerosis and other heart disease (20 sources)History of myocardial infarction; Translations: [Old myocardial infarction]Onset: 225488-90-9036PfvpslxKafkjboxnx and other anemia (1 source)Anemia in chronic kidney disease; Translations: [Anemia in chronic kidney disease]Onset: 46-44-1378NgztwwzQrqssuerl of lipid metabolism (20 sources)Hyperlipidemia; Translations: [Dyslipidemia]Onset: 10-24-2021 Resolved: 574798-97-4439OslxtcjZwypzaahyn disorders (18 sources)Gastroesophageal reflux disease without esophagitis; Translations: [Gastro-esophageal reflux disease without esophagitis]Onset: 09-28-2023 10-22-3388PtgwotaCpelyxjgi hypertension (20 sources)Hypertensive disorder; Translations: [Essential (primary) hypertension]Onset: 481473-62-5898MmulqhkOicsmhqqwrpay symptoms and ill- defined conditions (20 sources)Nocturia; Translations: [Nocturia]Onset: 20-94-2620Mcztyxwa Hyperplasia of prostate (20 sources)Benign prostatic hypertrophy with outflow obstruction; Translations: [Benign prostatic hyperplasia with lower urinary tract symptoms]Onset: 74-63-0058FkqdqnrKtqgsputknkm with complications and secondary hypertension (20 sources)Chronic kidney disease due to hypertension; Translations: [Hypertensive chronic kidney disease withstage 1 through stage 4 chronic kidney disease, or unspecified chronic kidney disease]Onset: 10-24-2021 Resolved: 32-50-9850SibcuaeQebelxxpyufh conditions of male genital organs (20 sources)Chronic prostatitis; Translations: [Chronic prostatitis]Onset: 975535-66-7055YwsiyheDmpnuiuxkhgu conditions of male genital organs (14 sources)Qsekoaxolwj82-93-6358BvymxkuyYgasngmrj; nephrosis; renal sclerosis (5 sources)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; Translations: [Nephrotic syndromewith diffuse mesangiocapillary glomerulonephritis]Onset: 000313-52-1329BvpwqzxGtko wounds of head; neck; and trunk (6 sources)Laceration of left cornea; Translations: [Ocular laceration without prolapse or loss of intraoculartissue, left eye, initial encounter]07-14-2024 EpisodicOther acquired deformities (1 source)Lumbar spondylolisthesis; Translations: [Spondylolisthesis, lumbar region]55-76-5502WioxkhcmEczyz acquired deformities (1 source)Spondylolisthesis, lumbar region; Translations: [Spondylolisthesis of lumbar region]Onset: 44-28-4952YlitubujZaoam aftercare (1 source)Encounter for surgical aftercare following surgery on the circulatory systemEpisodicOther and ill-defined heart disease (20 sources)Heart disease; Translations: [Heart disease, unspecified]Onset: 06-04-2023 Resolved: 750180-08-1692CnglchdRnvrr circulatory disease (20 sources)Disorder of carotid artery; Translations: [Disorder of arteries and arterioles, unspecified]Onset: 037480-45-6771EoijsuvVjhng circulatory disease (4 sources)Disorder of arteries and arterioles, unspecified; Translations: [Disorder of arteries and arterioles, unspecified (CMS/HCC)]Onset: 06-04-2023 ChronicOther connective tissue disease (3 sources)Muscle pain; Translations: [Myalgia, unspecified site]03-14-2025 EpisodicOther diseases of kidney and ureters (16 sources)Secondary hyperparathyroidism; Translations: [Secondary hyperparathyroidism of renal origin]71-75-4622AxiyekaKmudi diseases of kidney and ureters (6 sources)Secondary hyperparathyroidism of renal origin; Translations: [Secondary hyperparathyroidism (of renal origin)]Onset: 10-24-2021 Resolved: 13-60-1369HbviexbHxztc diseases of kidney and ureters (1 source)Urinary tract obstruction; Translations: [Other obstructive and reflux uropathy]Onset: 79-83-7649FmhcptvrEaiym diseases of kidney and ureters (20 sources)Kidney disease; Translations: [Disorder of kidney and ureter, unspecified]Onset: 026163-02-2695HmgticlaKykii male genital disorders (20 sources)Male erectile dysfunction, unspecified; Translations: [Erectile dysfunction]Onset: 11-60-1751RwtwnstEpvnf nervous system disorders (20 sources)Chronic pain syndrome; Translations: [Chronic pain syndrome]Onset: 938799-73-8345UvowydxBmqsj nervous system disorders (1 source)Other chronic pain; Translations: [OTHER CHRONIC PAIN]Onset: 25-26-9244EjxurrqEjajx nutritional; endocrine; and metabolic disorders (4 sources)Overweight in adulthood with body mass index of 25 or more but less than 30; Translations: [Body mass index (BMI) 28.0-28.9, adult]Onset: 08-18-2023 59-38-6228AgjkwzztIzcnxvpshv and visceral atherosclerosis (20 sources)Peripheral vascular disease, unspecified; Translations: [Peripheral vascular disease, unspecified]Onset: 04-27-2023 Resolved: 253918-26-2245HvayzwmKjatcju on above:legsResidual codes; unclassified (1 source)Other specified postprocedural statesEpisodicResidual codes; unclassified (1 source)Family history of ischemic heart disease and other diseases of the circulatory systemEpisodicSpondylosis; intervertebral disc disorders; other back problems (11 sources)Spondylosis without myelopathy or radiculopathy, lumbar region; Translations: [Other intervertebraldisc degeneration, lumbar region]Onset: 21-26-5479VoyyncrOdfbgdqge-related disorders (20 sources)Smoker; Translations: [Nicotine dependence, unspecified, uncomplicated]Onset: 083353-04-9415LhxltkcTsgttyv on above:Added secondary to documentation in Social History.Unclassified (15 sources)Finding of sensation of adjmlpg47-46-4766Zzncflwsgbwi (4 sources)LOW BACK PAIN, UNSPECIFIED; Translations: [LOW BACK PAIN, UNSPECIFIED]Onset: 49-01-9934Nbmtjkiviesf (1 source)CONTACT W/AND (SUSP) EXPOS COVID-19; Translations: [CONTACT W/AND (SUSP) EXPOS COVID-19]Onset: 16-48-6286Iygmbyzdtiee (1 source)CHRN KIDNEY DISEASE STG 3 UNSP; Translations: [CHRN KIDNEY DISEASE STG 3 UNSP]Onset: 21-52-3497Armtsyipqork (1 source)Foreign body sensation, unspecified; Translations: [Foreign body sensation, unspecified]Onset: 26-05-8208Kxvpnhu tract infections (20 sources)Urinary tract infectious disease; Translations: [Urinary tract infection, site not specified]Onset: 23-14-0431Kloahvhr Past or Other Problems Problem ClassificationProblemDateDocumented DateEpisodic/ChronicCardiac dysrhythmias (20 sources)Bradycardia; Translations: [Bradycardia, unspecified]Onset: 720714-43-8368UhwxuswiXlihnabo mellitus without complication (16 sources)High glucose level in blood; Translations: [Hyperglycemia, unspecified]Onset: 496780-36-2030RpzxabycWuax disorders (15 sources)Mood disordersOnset: 557806-15-1923Ipywyknxibh chest pain (9 sources)Chest discomfort; Translations: [Other chest pain]Onset: 06-04-2023 00-49-0383UvsyofagPzvji connective tissue disease (4 sources)Other muscle spasm; Translations: [OTHER MUSCLE SPASM]Onset: 48-96-9170RgagvwxfEvwhq connective tissue disease (16 sources)Synovial cyst of lumbar spine; Translations: [Other bursal cyst, other site]Onset: 355249-77-3922KsyejkzqDxide nutritional; endocrine; and metabolic disorders (2 sources)Body mass index (BMI) 28.0-28.9, adult; Translations: [Body mass index (BMI) 28.0-28.9, adult]Onset: 41-21-8056CkgagfpzPfrmviei codes; unclassified (18 sources)Tobacco user; Translations: [Tobacco use]Onset: EpisodicResidual codes; unclassified (16 sources)Weight change finding; Translations: [Other general symptoms and signs]Onset: 34-85-912051187517-90-6104MpzrjdfjKonhstrijjo; intervertebral disc disorders; other back problems (20 sources)Spinal stenosis, lumbar region without neurogenic claudication; Translations: [Intervertebral disc disorders with radiculopathy, lumbar region] Onset: 51-83-9009AclbxqcxPzjdgfjocvjx (1 source)LOW BACK PAIN, UNSPECIFIED; Translations: [LOW BACK PAIN, UNSPECIFIED] Onset: 36-72-5927Fptgjvmcrtes (5 sources)Onset: 06-04-2023 Resolved: Results Test NameValueInterpretationReference RangeFacilityUrology Office/Clinic Noteon 52-45-7221Ybbnywl Office/Clinic NoteUrology Office/Clinic Note Chief Complaint Review TURBT path HPI Staff Pt is a 79 year old male here to review TURBT path report Dx: hx of UTI, hx of prostate cancer (EBRT 2021), BPH with urinary obstruction (TURP 06/06/21), nocturia and ED, gross hematuria PSA: 04/17/21 - 9.95 11/04/21 - 3.73 05/09/22 - 2.81 11/17/22 - 0.50 05/11/23 - 0.43 10/01/23 - 0.42 12/10/23 - 0.43 IPSS score today is 5. Nocturia x3. Incomplete emptying and frequency less than 1 in 5x. Denies any painful urination or visible blood. History of Present Illness Tests reviewed: op note, path I have reviewed the previous health record [...] & Measurements T: 37 ???C(Temporal Artery) HR: 78(Peripheral) RR: 16 BP: 138/83 HT: 178 cm HT: 70 in WT: 90 kg WT: 198.416 lb BMI: 28.41 General Appearance: alert, no distress, well nourished, well developed adult. Assessment/Plan Pt accompanied by an elderly female today. 1. 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 No classic bladder tumors are noted. TURBT 03/23/25 - Neg for malignancy. 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 Cath removed 03/29/25. The pathology report was reviewed with the patient in detail today. There is no evidence of malignancy and no further evaluation of the tissue removed is planned. All questions were answered and the report discussed in terms that the patient could understand. Question if inflammatory path finding secondary to incomplete emptying or not voiding frequently enough. -Timed voids q2-3hr -Ensure complete emptying 2. Recurrent UTI (N39.0: Urinary tract infection, site not specified) UCx Mar 2023 - 100k staph tx'd by nephro w amox Apr 2023 - 15k Staphylococcus aureus, tx'd w/Keflex 07/07/23 - 25k Staphylococcus aureus, tx'd w/ Bactrim 04/07/24 - 30k Staph aureus, tx'd w/ doxycycline bid x7 days. -Cont high fluid intake -Cont cranberry supplement 3. BPH with urinary obstruction (N40.1: Benign prostatic hyperplasia with lower urinary tract symptoms) S/p TURP 06/06/21. IPSS 5. No BPH meds. Voiding comfortable now. Urination has greatly improved since increasing fluid intake. No longer straining, urination feels almost normal. Refills 10 oz bottle, estimates 15x daily. Mild intermittent gross hematuria has also stopped. Hasn't had infection recently either. I feel so much better. -Cont high fluid intake -Timed voids q2-3hr -Ensure complete emptying 4. History of prostate cancer (Z85.46: Personal [...] developing extraprostatic extension EBRT 03/18/22 - 04/23/22. Has f/u with Dr Nazario this month. Will get PSA on the and forward it to this office. Follow up 6 mos with another PSA (in addition to the upcoming one from Dr Nazario) or sooner if needed. Pt understands and agrees with plan. 5. Erectile dysfunction (N52.9: Male erectile dysfunction, unspecified) Has tried Viagra in the past but d/c due to expense. Denies hx of MIs. Not on Nitro. [1] Taking Cialis 20mg prn. Follow-up With When Contact Information Barbara JOHNSTON MD, URL [facility] [address] [place] [address]- Additional Instructions: 6 mos with another PSA (in addition to the upcoming one from Dr Nazario) Patient Education Benign Prostatic Hyperplasia I, Fauzia Leon, personally scribed for Dr. Johnston on 04/03/2025 12:43:54. . Documentation recorded by the scribe, Fauzia Leon, accurately reflects the services(s) I performed and decisions made by me. Authenticated by Dr. Johnston on 04/03/2025 12:46:20. Problem List/Past Medical History Ongoing Anxiety BPH with urinary obstruction Chronic pain disorder Chronic prostatitis Erectile dysfunction Feeling of incomplete bladder emptying Follicular cystit (more content not included)...[facility] HospitalComment on above:Result Comment: Electronically Signed By: Barbara JOHNSTON MD\.br\Date and Time Signed: 04/03/25 12:46 EST\.br\Electronically Co- Signed By: Fauzia Leon\.br\Date and Time Co-Signed: 04/03/25 12:44 EST Ambulatory Visit Summaryon 56-73-7492Mjizveywcv Visit SummaryAmbulatory Visit Summary YESENIA BROUSSARD :1945 Visit Date:03/29/2025 Ambulatory Visit Instructions Your Care Team Attending Physician - Barbara JOHNSTON MD Primary Care Physician - AMBROSIO SCALES CNP This Is Your Medications List acetaminophen-hydrocodone ([place] 5/325 Tab) amlodipine (amLODIPine 10 mg Tab) aspirin (aspirin 81 mg oral capsule) ciprofloxacin (Cipro 500 mg Tab) clopidogrel (clopidogrel 75 mg Tab) [...] to do next Scheduled Follow-Up Appointments Thursday 11:30 AM EST With: Barbara JOHNSTON MD Where: [facility] [address] [address]- Thursday 9:45 AM EST With: Barbara JOHNSTON MD Where: [facility] [address] [address]- Medications What How Much When Instructions Unchanged acetaminophen-hydrocodone ([place] 5/ 325 Tab) By Mouth Every 6 hours Unchanged amlodipine (amLODIPine 10 mg Tab) 1 Tablets Unchanged aspirin (aspirin 81 mg oral capsule) By Mouth Every 4 hours Unchanged ciprofloxacin (Cipro 500 mg Tab) 1 Tablets By Mouth Every day Take 1 tablet the day before the procedure and 1 tablet after the procedure Unchanged clopidogrel (clopidogrel 75 mg Tab) 1 [...] you for choosing us for your care. Patient Portal You may access all of your results and other medical record information on our secure patient portal. If you are not signed up for this yet, please contact [employer] at [phone] to get signed up today. Language Information Language assistance services are available as needed. [facility] 03-23-2025 Specimen: [id number] Received: 03/23/25 Status: ALIE Deandre Num: [id number] Spec Type: Surgical Subm Dr: Barbara Johnston MD Tissues: A Urinary Bladder - TUR (BLADDER TUMOR) Procedures: KAYLA, Gross/Shira L5 Age/ Patient Sex Location Account Attending Physician Yesenia Broussard 79/M LABELL [id number] Barbara Johnston MD SPEC NUM: [id number] RECD: 03/23/25 STATUS: ALIE LUCIA NUM: [id number] MICHAEL: 03/23/[address] [facility] [address]: Barbara Johnston MD ENTERED: 03/23/[address] [facility] [address]: Bryan Arias SPEC TYPE: Surgical DEPT: [facility] ENTERED BY: [id number] RECV BY: [id number] ORDERED: HE, Gross/Micro L5 ORDERED: HE, Gross/Micro L5 Pathological Diagnosis Bladder, tumor, biopsy: - 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 - No evidence of malignancy identified. Clinical Information Bladder tumor/lesions, hematuria Gross Description Received in formalin labeled with the patient's name, date of , and bladder tumor are two less than 0.1 grams, khan-pink, rubbery tissue chips, 0.6 and 0.7 cm in length. The specimen is entirely submitted in a single cassette. (1, danielle, [id number] A) J Microscopic Description Microscopic examination is performed. CPT Codes 40517 Specimen: [id number] Received: 03/23/25 Status: ALIE Lucia Num: [id number] Spec Type: Surgical Subm Dr: Barbara Johnston MD Tissues: A Urinary Bladder - TUR (BLADDER TUMOR) Procedures: Yari GARZA/Shira L5 Patient: Yesenia Broussard [id number] (Continued) Signed (signature on file) Mani Hernandez MD 03/24/25 1305Normal [facility] Physician GroupFollow-Upon [id number]-[id number] Yesenia Broussard 1945 M Date Provider Department Center 03/15/2025 Fabio-VASILE MADERA ONC DCC Family History Problem Relation Age of Onset Hypertension Mother Diabetes Father Family Status - Relation Status Age at Mother Father Level of Service:45769 OR OFFICE/OUTPATIENT ESTABLISHED LOW MDM 20 [facility] HospitalAct[facility] partial thromboplastin time (aPTT) in platelet poor plasma by coagulation aOrdered By: Barbara Johnston on 03-13-2025 aPTT Coag (PPP) [Time]24.5 s22.3-36.2FPremier Health Miami Valley HospitalBasophils Auto (Bld) [#/Vol]Ordered By: Barbara Johnston on 57-89-1189Xdgrpbwcw (Bld) [#/Vol]0.0 10 3/uL0.0-0.1FPremier Health Miami Valley HospitalBasophils/100 WBC Auto (Bld)Ordered By: Barabra Johnston on 11-40-9216Okcqptffq/100 WBC (Bld)0.3 % 0.2-2.0OhiohealthEosinophils/100 WBC Auto (Bld)Ordered By: Barbara Johnston on 02-41-6528Oachljckjgv/100 WBC (Bld)3.2 %0.9-7.0OhiohealthErythrocyte distribution width Auto (RBC) [Ratio]Ordered By: Barbara Johnston on 60-41-1069Oiktqedxrng distribution width (RBC) [Ratio]13.5 %11.0-15.0OhiohealthGlomerular filtration rate (GFR) estimation in non- AmericanOrdered By: Barbara Johnston on 03-13-2025 GFR/1.73 sq M.predicted among non-blacks MDRD (S/P/Bld) [Vol rate/Area]29 mL/min/{1.73_m2}Low>=60 mL/min/1.73m 2FPremier Health Miami Valley Hospital Hematocrit Auto (Bld) [Volume fraction]Ordered By: Barbara Johnston on 03-13-2025 Hematocrit (Bld) [Volume fraction]36.4 %Low42.0-54.0OhiohealthHemoglobin [Mass/volume] in BloodOrdered By: Barbara Johnston on 03-13-2025 Hemoglobin (Bld) [Mass/Vol]12.0 g/dLLow14.0-18.0OhiohealthINR in Platelet poor plasma by Coagulation assayOrdered By: Barbara Johnston on 85-23-3812UEA Coag (PPP) [Relative time]0.97 {INR}OhiohealthComment on above:DESIRED INR:2.0-3.0 CONDITIONS NOT LISTED BELOW2.5-3.5 FOR PROSTHETIC HEART VALVE REPLACEMENT2.5-3.5 RECURRENT THROMBOSISLaboratory - Chemistry and Chemistry - challengeOrdered By: Barbara Johnston on 03-13-2025 Calcium [Mass/Vol]8.5 mg/dL8.5-10.1FPremier Health Miami Valley HospitalChloride [Moles/Vol]109 mmol/JKsxi47-908AupucrtyhOhiohealthCO2 [Moles/Vol] 23.3 mmol/L21.0-32.0OhiohealthCreatinine [Mass/Vol]2.20 mg/dLHigh0.70-1.30OhiohealthGFR/1.73 sq M.predicted MDRD (S/P/Bld) [Vol rate/Area]35 mL/min/{1.73_m2}Low>=60 mL/min/1.73m 2FPremier Health Miami Valley HospitalGlucose [Mass/Vol]148 mg/sMBcfo67-379GendxtvqyOhiohealthPotassium [Moles/Vol]4.6 mmol/L3.5-5.1FOhioHealth Grove City Methodist Hospitalodium [Moles/Vol]142 mmol/H543-575RzzynfdlaOhiohealthUrea nitrogen [Mass/Vol]25.0 mg/dLHigh7.0-18.0OhiohealthUrea nitrogen/Creatinine [Mass ratio]11.4 mg/mgOhiohealth Laboratory - Hematology and Cell countsOrdered By: Barbara Johnston on 03-13-2025 Immature granulocytes/100 WBC (Bld)0.4 %0.0-0.5FPremier Health Miami Valley Hospital Leukocytes [#/volume] corrected for nucleated erythrocytes in Blood by Automated counOrdered By: Barbara Johnston on 45-62-8211KUC corrected for nucl RBC Auto (Bld) [#/Vol]7.4 10 3/uL4.0-11.0OhiohealthLymphocytes Auto (Bld) [#/Vol]Ordered By: Barbara Johnston on 06-70-3440Btwubhnkoih (Bld) [#/Vol]1.2 10 3/uL1.2-3.8OhiohealthLymphocytes/100 WBC Auto (Bld)Ordered By: Barbara Johnston on 36-15-0690Hbuangeynjn/100 WBC (Bld)16.2 %Low20.5-60.0[facility] - TrumbullH Auto (RBC) [Entitic mass] Ordered By: Barbara Johnston on 09-35-5597KME (RBC) [Entitic mass]31.3 pg25.9-34.0 OhiohealthMCHC Auto (RBC) [Mass/Vol]Ordered By: Barbara Johnston on 28-01-5420MNXQ (RBC) [Mass/Vol]33.0 g/dL29.9-35.2FPremier Health Miami Valley HospitalMCV Auto (RBC) [Entitic vol]Ordered By: Barbara Johnston on 51-94-3102BPG (RBC) [Entitic vol]95.0 lZIrcw89.0-94.0OhiohealthMonocytes Auto (Bld) [#/Vol]Ordered By: Barbara Johnston on 03-13-2025 Monocytes (Bld) [#/Vol]0.6 10 3/uL0.3-0.8[facility] Monocytes/100 WBC Auto (Bld)Ordered By: Barbara Johnston on 03-13-2025 Monocytes/100 WBC (Bld)8.1 %1.7-12.0OhiohealthNeutrophils Auto (Bld) [#/Vol]Ordered By: Barbara Johnston on 46-67-9939Fzgzvroisnb (Bld) [#/Vol]5.3 10 3/uL1.4-6.5FPremier Health Miami Valley HospitalNeutrophils/100 WBC Auto (Bld)Ordered By: Barbara Johnston on 31-21-5074Wludejhgzad/100 WBC (Bld)71.8 %43.0-75.0OhiohealthNo Panel InformationOrdered By: Barbara Johnston on 71-56-1415Khwzqmcearb # (Auto)0.2 10 3/uL0.0-0.7FPremier Health Miami Valley HospitalImmature Granulocyte # (Auto)0.03 10 3/uL0.00-0.03 OhiohealthPlatelet mean volume Auto (Bld) [Entitic vol] Ordered By: Barbara Johnston on 94-28-2352Olmudawe mean volume (Bld) [Entitic vol] 10.6 fL9.5-13.5FPremier Health Miami Valley HospitalPlatelets Auto (Bld) [#/Vol] Ordered By: Barbara Johnston on 63-56-0543Okrdoruot (Bld) [#/Vol]266 10 3/uL 150-450OhiohealthProthrombin time (PT)Ordered By: Barbara Johnston on 24-78-9268GI Coag (PPP) [Time]10.3 s9.0-11.6FPremier Health Miami Valley HospitalRBC Auto (Bld) [#/Vol]Ordered By: Barbara Johnston on 43-49-5910MCG (Bld) [#/Vol]3.83 10 6/uLLow4.70-6.10Glenbeigh Hospitalerum or plasma anion gap determinationOrdered By: Barbara Johnston on 95-02-1603Bxren gap [Moles/Vol]14.3 mmol/[facility] HospitalMain OR Intraoperative Recordon 98-65-5269Peoq OR Intraoperative RecordMain OR Intraoperative Record IntraOp Document Type FTURO Summary Primary Physician: Barbara JOHNSTON MD Finalized Date/Time: 03/07/25 14:17:54 Pt. Name: YESENIA BROUSSARD/Sex: 1945 Male Med Rec #: [id number] Physician: Barbara JOHNSTON MD Financial #: [id number] Pt. Type: O Room/Bed: / Admit/Disch: 03/07/25 [...] Kendall R Role Performed Surgeon - Primary Ironer - Primary Scrub - Primary Time In [...] Prep Agents Betadine Scrub Skin. Condition Intact, [place], Warm, & Dry Additional None Specimens Collected [...] Document Signatures Signed By: Ethan Bundy 03/07/25 14:17[facility] HospitalMain OR Preoperative Recordon 32-03-8586Obxx OR Preoperative RecordMain OR Preoperative Record Holding Area Document Type FTURO Summary Primary Physician: Barbara JOHNSTON MD Finalized Date/Time: 03/07/25 13:56:28 Pt. Name: YESENIA BROUSSARD/Sex: 1945 Male Med Rec #: [id number] Physician: Barbara JOHNSTON MD Financial #: [id number] Pt. Type: O Room/Bed: / Admit/Disch: 03/07/25 [...] Document Signatures Signed By: Zakiya Dumas 03/07/25 13:56NoProMedica Fostoria Community HospitalOperative Reporton 55-52-1525Amcrtynnj ReportOperative Report Patient: YESENIA BROUSSARD Age: 79 [...] and transurethral resection of bladder lesions under anesthesia..[facility] HospitalComment on above:Result Comment: Electronically Signed By: PRESTON MAK, Barbara Coy.br\Date and Time Signed: 03/07/25 14:22 EDTGlomerular filtration rate (GFR) estimation in non- AmericanOrdered By: Barbara Johnston on 55-37-0327BSN/1.73 sq M.predicted among non-blacks MDRD (S/P/Bld) [Vol rate/Area]30 mL/min/{1.73_m2}Low>=60 mL/min/1.73m [address] [place], [place] [address]Laboratory - Chemistry and Chemistry - challengeOrdered By: Barbara Johnston on 86-69-7480Opcnsbxrpz [Mass/Vol]2.14 mg/dL High0.70-1.30OhiohealthGFR/1.73 sq M.predicted MDRD (S/P/Bld) [Vol rate/Area]36 mL/min/{1.73_m2}Low>=60 mL/min/1.73m [address] [place] [address] 30-98-8786RaedkuulkAoanlqxhf From: Bhavana Banks To: TRISTIN Johnston; Sent: [...] Pt [place] [facility] [place] [facility] [place]. Not sure what was ordered. Report not available yet. Pt sched for 03/07/25 at [facility] for cysto Order faxed to [facility] for Ct urogram.[facility] HospitalCT Lumbar spine WO contraston 68-11[place]5710[place] [address] CT Scan Report Signed Patient: YESENIA BROUSSARD MR#: [id number] : 1945 Acct:[id number] Age/Sex: 79 / M ADM Date: 02/21/25 Loc: CT Attending Dr: Loco Ferrera NP Ordering Physician: Loco Ferrera NP Date of Service: 02/21/25 Procedure(s): CT lumbar spine wo con Accession Number(s): [id number] cc: Shaikh Joanna [place] [address] Patient Name: YESENIA BROUSSARD MRN: [id number] date: 1945 Sex: M Assigned Patient Location: CT Current Patient Location: CT Accession/Order Number: [id number] Exam Date: 02/21/2025 10:02 Report Date: 02/21/2025 [...] Waite M.D. 02/21/2025 11:31 AM Dictation Location: [place] [address] Electronically authenticated by: [id number] Y Date: 02/21/2025 11:31 Dictated By: Lorelei Waite M.D. Signed By: 02/21/25 1134 DD/ 1131 (more content not included)...TBHRadiology, Radiologist, - 02/21/[address] [address] [address] Scan Report Signed Patient: YESENIA BROUSSARD MR#: [id number] : 1945 Acct:[id number] Age/Sex: 79 / M ADM Date: 02/21/25 Loc: CT Attending Dr: Loco Ferrera NP Ordering Physician: Loco Ferrera NP Date of Service: 02/21/25 Procedure(s): CT lumbar spine wo con Accession Number(s): [id number] cc: Shaikh Joanna [place] [address] Patient Name: YESENIA BROUSSARD MRN: [id number] date: 1945 Sex: M Assigned Patient Location: CT Current Patient Location: CT Accession/Order Number: [id number] Exam Date: 02/21/2025 10:02 Report Date: 02/21/2025 [...] Waite M.D. 02/21/2025 11:31 AM Dictation Location: [place] [address] Electronically authenticated by: [id number] Y Date: 02/21/2025 11:31 Dictated By: Lorelei Waite M.D. Signed By: 02/21/25 1134 DD/ 1131 TD/TT: Command Center Analyst: [facility] HealthcareRadiology Study observation (narrative)[facility] HospitalCT Lumbar spine WO contrastOrdered By: Radiologist Radiology on 49-55-5728QQEJSoutheast Missouri Hospital Work Phone: Erythrocyte distribution width Auto (RBC) [Ratio] Ordered By: Theo Thakkar on 74-69-3595Zpbevryspfj distribution width (RBC) [Ratio]13.6 %11.0-15.0OhiohealthGlomerular filtration rate (GFR) estimation in non- AmericanOrdered By: Theo Thakkar on 14-58-8977QZG/1.73 sq M.predicted among non-blacks MDRD (S/P/Bld) [Vol rate/Area]34 mL/min/{1.73_m2}Low>=60 mL/min/1.73m [address] [place] [address] CBC WITH PLATELET NO DIFFERENTIALon 62-00-1738Cdqcopbtojn distribution width (RBC) [Ratio]13.6 %11.0 - 15.0 %[facility]OM HealthcareHematocrit (Bld) [Volume fraction]39.3 %Low42.0 - 54.0 %[facility] HealthcareHemoglobin (Bld) [Mass/Vol]12.9 g/dLLow14.0 - 18.0 g/dLSoutheast Missouri HospitalInterpretation and review of laboratory resultsAbnormalSaint John's Saint Francis HospitalH (RBC) [Entitic mass]30.9 pg25.9 - 34.0 pgSaint John's Saint Francis HospitalHC (RBC) [Mass/Vol]32.8 g/dL29.9 - 35.2 g/dLSaint John's Saint Francis HospitalV (RBC) [Entitic vol]94 fL80.0 - 94.0 fLSoutheast Missouri HospitalPlatelet mean volume (Bld) [Entitic vol]10.3 fL9.5 - 13.5 fLBarton County Memorial Hospital GRQ442SEYGUniversity Hospital RBC4.18LowBarton County Memorial Hospital NOR7QQPPSoutheast Missouri HospitalCLINISYNCNOMS HealthcareHematocrit Auto (Bld) [Volume fraction]Ordered By: Theo Thakkar on 85-49-2285Btugivyano (Bld) [Volume fraction]39.3 %Low42.0-54.0OhiohealthHemoglobin [Mass/volume] in BloodOrdered By: Theo Thakkar on 54-99-0830Jwnywwbiez (Bld) [Mass/Vol]12.9 g/dLLow14.0-18.0OhiohealthIron binding capacity [Mass/volume] in Serum or PlasmaOrdered By: Theo Thakkar on 67-73-2804Lkry binding capacity [Mass/Vol]354.0 ug/dL250.0-450.0 OhiohealthIron saturation [Mass Fraction] in Serum or PlasmaOrdered By: Theo Thakkar on 65-88-5006Jzsv saturation [Mass fraction]22.6 % OhiohealthLaboratory - Chemistry and Chemistry - challengeOrdered By: Theo Thakkar on 23-81-1665Zjstuqzfi Ql (U)SMALLAbnormal NEGATIVEOhiohealthGlucose (U) [Mass/Vol]NegativeNEGATIVE OhiohealthKetones Ql (U)TRACE mg/dLAbnormalNEGATIVE OhiohealthpH (U)5.5 [pH]5.0-9.0Glenbeigh Hospitalpecific gravity (U) [Rel density]1.0251.005-1.025OhiohealthUrobilinogen Qn (U)0.2 {Jing'U}/dL0.2-1.0OhiohealthAlbumin [Mass/Vol]3.8 g/dL3.4-5.0[facility] Calcium [Mass/Vol]9.2 mg/dL8.5-10.1FPremier Health Miami Valley HospitalChloride [Moles/Vol]106 mmol/W39-799HlrvzjbanOhiohealthCO2 [Moles/Vol]23.6 mmol/L21.0-32.0OhiohealthCreatinine [Mass/Vol]1.93 mg/dL High0.70-1.30OhiohealthFerritin [Mass/Vol]45.0 ng/mL 26.0-388.0OhiohealthGFR/1.73 sq M.predicted MDRD (S/P/Bld) [Vol rate/Area]41 mL/min/{1.73_m2}Low>=60 mL/min/1.73m 2FPremier Health Miami Valley HospitalGlucose [Mass/Vol]105 mg/yM93-736TswweapccOhiohealthIron [Mass/Vol]80.0 ug/dL65.0-175.0OhiohealthMagnesium [Mass/Vol]2.0 mg/dL1.8-2.4FPremier Health Miami Valley Hospital Potassium [Moles/Vol]5.2 mmol/LHigh3.5-5.1FPremier Health Miami Valley Hospital Sodium [Moles/Vol]139 mmol/U072-588LfmnmsuviOhiohealthUrate [Mass/Vol]6.6 mg/dL3.5-7.2FPremier Health Miami Valley HospitalUrea nitrogen [Mass/Vol]28.0 mg/dLHigh7.0-18.0OhiohealthUrea nitrogen/Creatinine [Mass ratio]14.5 mg/mgOhiohealth Laboratory - Specimen informationOrdered By: Theo Thakkar on 32-91-8920Xxgxsgzvgb (U)SL CLOUDYCLEMansfield HospitalColor (U)LT. YELLOWYELChildren's Hospital of ColumbusLaboratory - UrinalysisOrdered By: Theo Thakkar on 84-73-1178Jyprqxcsl esterase Test strip Ql (U)LARGEAbnormalNEGATIVEOhiohealthMucus Ql (Urine sed)NONE SEENNONE SEENOhiohealthNitrite Ql (U)NegativeNEGATIVEOhiohealth Protein (U) [Mass/Vol]147.8 mg/dLHigh<=11.9Ohiohealth Protein Ql (U)100 mg/dLAbnormalNEG/TRACEOhiohealth Leukocytes [#/volume] corrected for nucleated erythrocytes in Blood by Automated counOrdered By: Theo Thakkar on 75-87-4355GVU corrected for nucl RBC Auto (Bld) [#/Vol]8.0 10 3/uL4.0-11.0[facility] Auto (RBC) [Entitic mass]Ordered By: Theo Thakkar on 70-47-2462SOB (RBC) [Entitic mass]30.9 pg25.9-34.0OhiohealthMC Auto (RBC) [Mass/Vol]Ordered By: Theo Thakkar on 28-54-9450CPRR (RBC) [Mass/Vol]32.8 g/dL29.9-35.2FPremier Health Miami Valley HospitalMCV Auto (RBC) [Entitic vol]Ordered By: Theo Thakkar on 94-24-5695WKC (RBC) [Entitic vol]94.0 fL80.0-94.0OhiohealthNo Panel InformationOrdered By: Theo Thakkar on 94-26-5737Ioeva Bacteria SMALL #/HPFAbnormalNONE [facility] HospitalUrine Occult Blood TRACE-INEGATIVEOhiohealthUrine Other CastsNONE SEEN #/LPF NONE [facility] HospitalUrine Other CrystalsNone Seen #/HPF None [facility] Hospital at SouthwoodsUrine Random Ypfrvzhpww368.61 mg/dL 20.00-300.00OhiohealthUrine RBC0-2 #/HPF0-[address] [place], [place] [address]Urine Squamous Epithelial CellsRARE #/LPFNONE/RARE OhiohealthUrine FRF58-27 #/HPFAbnormalNONE [facility]25-Hydroxy Vitamin D Total43.3 ng/mLOhiohealthComment on above:<20 ng/mL Vit D shpdocbim19-<30 ng/mL Vit D kpysmsmofxeh41-710 ng/mL Vit D sufficient>100 ng/mL Potential Toxicity Parathyroid Hormone (Intact)81 pg/ySRylmgjxv18-58FadshtmefOhiohealthComment on above:Performed at: - Lab[address] [id number] Director: Rojelio Nelson PhD, Phone: [phone] Phosphorus Level3.9 mg/dL2.6-4.7FPremier Health Miami Valley HospitalPlatelet mean volume Auto (Bld) [Entitic vol]Ordered By: Theo Thakkar on 05-23-3138Jigigoww mean volume (Bld) [Entitic vol]10.3 fL9.5-13.5FPremier Health Miami Valley Hospital Platelets Auto (Bld) [#/Vol]Ordered By: Theo Thakkar on 16-17-3420Mvlvwstjw (Bld) [#/Vol]271 10 3/vU878-418ZbmuonhnmOhiohealthRBC Auto (Bld) [#/Vol]Ordered By: Theo Thakkar on 97-17-8446JPS (Bld) [#/Vol]4.18 10 6/uLLow 4.70-6.10Glenbeigh Hospitalerum or plasma anion gap determinationOrdered By: Theo Thakkar on 16-62-5437Mskik gap [Moles/Vol]14.6 mmol/LFPremier Health Miami Valley HospitalUrine protein/creatinine ratioOrdered By: Theo Thakkar on 67-26-6190Zorbyzk/Creatinine (U) [Ratio]0.69OhiohealthCNOVon 91-26-7491YUXQArrjrj Visit (MINDYA) YESENIA BROUSSARD ([id number]) 1945 M Date Time Provider Department 01/18/25 9:45 AM Genoveva NAZARIO During your visit today, we recorded the following information about you: Temperature Pulse Respiration Blood pressure 98.6 degrees 92/minute 16/minute 150/75 Weight Height 88.5 kg 1.778 m Kelly Hector MA 01/18/2025 9:49 AM Signed AUA=6 Genoveva Nazario MD 01/18/2025 9:49 AM Signed Radiation Oncology - Follow Up Note PATIENT NAME: Yesenia Broussard PATIENT DIAGNOSIS: Prostate adenocarcinoma, initial PSA 9.95, biopsy Suring score 3 + 4 = 7 (grade [...] ASSESSMENT/PLAN: Prostate adenocarcinoma, initial PSA 9.95, biopsy Suring score 3 + 4 = 7 (grade [...] by: Genoveva Nazario MD cc: Shaikh Dotty [address] [place] [address] Allergies As of Date: 01/18/2025 (No Known Allergies) Date Reviewed: 01/18/2025 Reviewed by: Kelly Hector MA - Fully Assessed Reason for Visit: Prostate Cancer [590] Cmt: Follow up Primary Visit Diagnosis:Cancer of prostate w/med recur risk (T2b-c or Suring 7 or PSA 10-20) (HCC) [C61] Order(s):PROSTATE-SPECIFIC ANTIGEN DIAGNOSTIC [SQPSA] Order #: [id number] FUTURE Prescriptions as of 01/18/2025 - HYDROcodone-acetaminophen [...] Service: OFFICE/OUTPATIENT ESTABLISHED LOW MDM 20 MIN [07682] Additional E/M codes: VISIT CPLX INHERENT EANDM ASSOC WITH MED * (more content not included)...NormalWexner Medical Center PSA SERPL-MCNC on 62-14-3493GBA PSA SERPL-MCNC1.56 ng/mLNINF - 2.60 ng/mLNHASKELL COUNTY COMM[facility]ITY [facility] HealthcareComment on above:Total PSA test methodology used is the Electrochemiluminescence Immunoassay by [employer]. Total PSA values by differing methodologies cannot be interchanged.Specimen Type: BLOOD SPECIMEN Ordering Facility: [facility] Address: [address] [place] [address] Original Ordering Provider: Genoveva HUDSON [facility] HospitalA SerPl-mCncon 98-56-4281Zoqqdgqc specific Ag [Mass/Vol]1.56 ng/mLNormal<2.60 [facility] HospitalComcorewell health ludington hospital on above:Order Comment: Specimen Type: BLOOD SPECIMEN Ordering Facility: [facility] Address: [address] [place], [place] [address]Result Comment: Total PSA test methodology used is the Electrochemiluminescence Immunoassay by [employer]. Total PSA values by differing methodologies cannot be interchanged. Performed By: #### [id number] #### [facility] CLIA [id number] [address] [place], [place] [address] [address] [place] STATES OF AMERICAUrine Cytology ( Labs)on 81-28-7619Nmlnfjngwte exam Cytology (U) [Interp]Diagnosis InfoInvalid Interpretation CodeFrancescoMedStar Union Memorial HospitalComment on above:Result Comment: A:Urine,Urine:Voided Interpretation - Adequate cellularity for evaluation. CPT 11998 MicroScopic Description - Adequacy - Gross Description Site ID:A color Yellow fixative Alcohol Specimen designated Urine received in alcohol preservative and labeled with the patient???s name, consists of 70ml clear yellow fluid. Electronically signed by : on: 09/02/2024 13:57:41Performed By: #### [id number] #### [facility] [address] [place], [place] [address]Ambulatory Visit Summaryon 99-30-2576Kwlstzsqfb Visit Summary Ambulatory Visit Summary YESENIA BROUSSARD :1945 Visit Date:08/29/2024 Ambulatory Visit Instructions Your Diagnosis Gross hematuria Your Care Team Attending Physician - CLAIRE JAMES PA-C Primary Care Physician - AMBROSIO SCALES CNP This Is Your Medications List acetaminophen-hydrocodone ([place] 5/325 Tab) amlodipine (amLODIPine 10 mg Tab) [...] MAK, Barbara Warner Where: [facility] [address] You Need to Schedule the Following Appointments Follow Up with [facility] Xenia When: Comments: For procedure as scheduled. Where: Medications What How Much When Instructions Unchanged acetaminophen-hydrocodone ([place] 5/ 325 Tab) By Mouth Every 6 [...] these instructions at home: Medicines ??? Take ygda-esh-qrdnnje and prescription medicines only as told by [...] straining your urine to (more content not included)...NormalCleveland Clinic Medina HospitalUrine Cytology ([facility])on 78-84-4544BZ Method of ExtractionVoidedLicking Memorial HospitalComment on above:Performed By: #### [id number] #### [facility] [address] [place], [place] [address]AN Number of Rhzh8Ieqekor Interpretation [facility] HospitalComment on above:Performed By: #### [id number] #### [facility] [address] [place], [place] [address]PV SpecimenUrineNoProMedica Fostoria Community HospitalComment on above:Performed By: #### [id number] #### [facility] [address] [place], [place] [address]SN Type of ServiceTechnical OnlyLicking Memorial HospitalComment on above:Performed By: #### [id number] #### [facility] [address] [place], [place] [address]Uxtamql Office/Clinic Noteon 90-29-3485Kwknxpd Office/Clinic NoteUrology Office/Clinic Note Chief Complaint gross [...] E&M of Est. Patient Moderate 30-39 Min 31274 Urine Cytology ([facility]) Urnls Dip Stick Auto w/o Microscopy POC 19047 Follow-up With When Contact Information [facility] [place] Additional Instructions: For procedure as scheduled. Patient [...] 1 tab(s) nitroglycerin 0.4 mg sublingual Tab [place] 5/325 Tab, Oral, q6hr pravastatin 40 mg [...] (08/29/24 11:52:00) Blood U (more content not included)...Licking Memorial HospitalComment on above:Result Comment: Electronically Signed By: CLAIRE JAMES PA-C\Date and Time Signed: 08/29/2513:09 EDTC Urineon 13-95-0646Bnthfonu identified Cx Nom (U)Microbiology PROCEDURE: Urine Culture [R1] SOURCE: U CleanCatch BODY SITE: COLLECTED DATE/TIME: 08/22/2024 16:34 EDT RECEIVED DATE/TIME: 08/23/2024 17:54 EDT START DATE/TIME: 08/23/2024 17:54 EDT FREE TEXT SOURCE: Stewart MCMULLEN, NITESH-C, Stewart MCMULLEN, PARKS RECREATION DIRECTOR-C, Cherie X Cherie X FINAL REPORTS Final Report [] Verified Date/Time: 08/25/2024 07:02 EDT 100 cfu/ml Mixed skin contaminants Performing Locations R1: This test was performed at: [facility], [address] [place] [address], [address] [place] [address], DpbbmcFfaijlProMedica Fostoria Community HospitalComment on above:Performed By: #### [id number] #### [facility] [address] [place], [place] [address]Ambulatory Visit Summaryon 13-74-0609Kgczeoujuz Visit Summary Ambulatory Visit Summary YESENIA BROUSSARD :1945 Visit Date:08/22/2024 Ambulatory Visit Instructions Your Care Team Attending Physician - PRESTON AMK, Barbara Warner Primary Care Physician - AMBROSIO SCALES CNP This Is Your Medications List acetaminophen-hydrocodone ([place] 5/325 Tab) amlodipine (amLODIPine 10 mg Tab) [...] MAK, Barbara Warner Where: [facility] [address] [facility] [place] [address]- Medications What How Much When Instructions Unchanged acetaminophen-hydrocodone ([place] 5/ 325 Tab) By Mouth Every 6 [...] you for choosing us for your care. [facility] HospitalFollow-Upon 58-67-1172Ewtmjc-Up [id number] Yesenia Broussard 1945 M Date Provider Department Center 08/18/2024 NICKOLAS STANTON [facility] SURG Second Fl Family History Problem Relation Age of Onset Hypertension Mother Diabetes Father Family Status - Relation Status Age at Mother Father Level of Service:37612 OR OFFICE/OUTPATIENT ESTABLISHED LOW MDM 20 MIN Reason for Visit and Comments: Follow-up [326856][facility] Urineon 08-12-2024 Bacteria identified Cx Nom (U)Microbiology [...] Locations R1: This test was performed at: [facility], [address] [place] [address], [address] , [place], QpzazpVgskmlProMedica Fostoria Community HospitalComment on above:Performed By: #### [id number] #### [facility] [address] [place] [address]Grmmsvc [Mass/volume] in Serum or Plasma by Bromocresol green (BCG) dye binding methoOrdered By: Theo Thakkar on 77-32-2921Sjbohuh BCG dye [Mass/Vol]Albumin [Mass/volume] in Serum or Plasma by Bromocresol green (BCG) dye binding metho3.5-5.7FPremier Health Miami Valley HospitalAppearance of Urine Ordered By: Theo Thakkar on 24-60-8762Arxvmdohjh (U)Urine appearanceClear OhiohealthBacteria [Presence] in Urine by Automated Ordered By: Theo Thakkar on 30-65-0747Kvjrapjo Auto Ql (U)Bacteria [Presence] in Urine by AutomatedNone SeenOhiohealthBilirubin Test strip Ql (U)Ordered By: Theo Thakkar on 41-86-6652Kiougvsmg Ql (U)Bilirubin.total [Presence] in Urine by Test stripNegativeOhiohealth Calcium [Mass/volume] in Serum or PlasmaOrdered By: Theo Thakkar on 08-10-2024 Calcium [Mass/Vol]Calcium [Mass/volume] in Serum or Plasma8.6-10.3FPremier Health Miami Valley HospitalCarbon dioxide, total [Moles/volume] in Serum or Plasma Ordered By: Theo Thakkar on 08-40-5141HB5 [Moles/Vol]Carbon dioxide, total [Moles/volume] in Serum or Zaxhdo66.0-31.0[facility] Chloride [Moles/volume] in Serum or PlasmaOrdered By: Theo Thakkar on 08-10-2024 Chloride [Moles/Vol]Chloride [Moles/volume] in Serum or Auzupg40-620XcxzqqfgfOhiohealthColor Auto (U)Ordered By: Theo Vivian on 95-45-5492Qhjab (U)Color of Urine by AutoYellowOhiohealthCreatinine [Mass/volume] in Serum or PlasmaOrdered By: Theo Vivian on 08-99-9396Pvrjnasjad [Mass/Vol]Creatinine [Mass/volume] in Serum or PlasmaHigh0.70-1.30OhiohealthCreatinine [Mass/volume] in UrineOrdered By: Theo Vivian on 11-64-3432Dqsseajqca (U) [Mass/Vol]Creatinine [Mass/volume] in UrineOhiohealthComment on above:No reference range establishedDipstick and Microscopicon 90-68-0812Szbakfoacx (U)ClearNormalClearThe [facility] / Nhrmc Physician GroupComment on above:Order Comment: Name Collection Type:: Clean- Voided MidstreamPerformed By: #### ADDONUAPLUS, PROCRERAT, CUU #### [facility] [address] [place] [address] USABacteria,UrineNone SeenNormalNone SeenThe [facility] / Nhrmc Physician GroupComment on above:Order Comment: Name Collection Type:: Clean- Voided MidstreamPerformed By: #### ADDONUAPLUS, PROCRERAT, CUU #### [facility] [address] [place] [id number] USABilirubin,UrineNegativeNormalNegativeThe [facility] / Nhrmc Physician GroupComment on above:Order Comment: Name Collection Type:: Clean- Voided MidstreamPerformed By: #### ADDONUAPLUS, PROCRERAT, CUU #### [facility] [address] [place] [address] USAColor (U)Light-YellowNormalYellowThe [facility] / Nhrmc Physician GroupComment on above:Order Comment: Name Collection Type:: Clean-Voided MidstreamPerformed By: #### ADDONUAPLUS, PROCRERAT, CUU #### [place] [address] USAGlucose Ql (U)NormalNormalNormalThe [facility] N[facility]rmc Physician GroupComment on above:Order Comment: Name Collection Type:: Clean-Voided MidstreamPerformed By: #### ADDONUAPLUS, PROCRERAT, CUU #### [place] [address] USAHyaline Casts,Zduaj7-7Qbfjbl9-6Syv [facility] Physician GroupComment on above:Order Comment: Name Collection Type:: Clean-Voided MidstreamPerformed By: #### ADDONUAPLUS, PROCRERAT, CUU #### [place] [address] USAKetones Ql (U)NegativeNormalNegativeHalifax Health Medical Center Of Daytona Beach Physician GroupComment on above:Order Comment: Name Collection Type:: Clean- Voided MidstreamPerformed By: #### ADDONUAPLUS, PROCRERAT, CUU #### [place] [address] USALeukocyte esterase Test strip Ql (U)2+HighNegativeThe [facility] / Nhrmc Physician GroupComment on above:Order Comment: Name Collection Type:: Clean-Voided MidstreamPerformed By: #### ADDONUAPLUS, PROCRERAT, CUU #### [place] [address] USAMucus,UrineRareNormalThe [facility] Nhrmc Physician GroupComment on above:Order Comment: Name Collection Type:: Clean-Voided MidstreamResult Comment: PERFORMED BY: [place] [address] PATHOLOGIST OCCUPATIONAL HEALTH MANAGER ROS GUNDERSON M.D.Performed By: #### ADDONUAPLUS, PROCRERAT, CUU #### [place] [address] USANitrite,UrineNegativeNormalNegativeThe [facility] N[facility]rmc Physician GroupComment on above:Order Comment: Name Collection Type:: Clean-Voided MidstreamPerformed By: #### ADDONUAPLUS, PROCRERAT, CUU #### [facility] [address] [place] [address] USAOccult Blood,Urine1+HighNegativeThe [facility]rmc Physician GroupComment on above:Order Comment: Name Collection Type:: Clean-Voided MidstreamPerformed By: #### ADDONUAPLUS, PROCRERAT, CUU #### [place] [address] USApH (U)6.0 [pH]Normal5.0-9.0The [facility] Comment on above:Order Comment: Name Collection Type:: Clean-Voided Midstream Performed By: #### ADDONUAPLUS, PROCRERAT, CUU #### [place] [address] USAProtein (U) [Mass/Vol]50 mg/dLHighNegativeThe [facility]rmc Physician GroupComment on above:Order Comment: Name Collection Type:: Clean- Voided MidstreamPerformed By: #### ADDONUAPLUS, PROCRERAT, CUU #### [place] [address] USARBC,Vijqp0-6Kkzs1-6Kst [facility] Physician GroupComment on above:Order Comment: Name Collection Type:: Clean-Voided MidstreamPerformed By: #### ADDONUAPLUS, PROCRERAT, CUU #### [place] [address] USASpecificy Manvel,Urine1.090Dcljto1.001-1.030The [facility] Physician GroupComment on above:Order Comment: Name Collection Type:: Clean- Voided MidstreamPerformed By: #### ADDONUAPLUS, PROCRERAT, CUU #### [place] [address] USAUrobilinogen,UrineNormalNormalNormalThe [facility] Physician GroupComment on above:Order Comment: Name Collection Type:: Clean- Voided MidstreamPerformed By: #### ADDONUAPLUS, PROCRERAT, CUU #### [place] [address] USAWBC CLUMP, UrineOccasionalHighNone SeenThe [facility] Physician GroupComment on above:Order Comment: Name Collection Type:: Clean- Voided MidstreamPerformed By: #### ADDONUAPLUS, PROCRERAT, CUU #### [facility] [address] [place] [address] USAWBC,Rfftz34-96Orgf2-5Umi [facility] Physician GroupComment on above:Order Comment: Name Collection Type:: Clean-Voided MidstreamPerformed By: #### ADDONUAPLUS, PROCRERAT, CUU #### [facility] [address] [place] [address] USAEpithelial cells.squamous [#/area] in Urine sediment by Automated countOrdered By: Theo Thakkar on 83-46-2561Mzirjlslnh cells.squamous Auto (Urine sed) [#/Area]Epithelial cells.squamous [#/area] in Urine sediment by Automated countOhiohealthErythrocyte distribution width Auto (RBC) [Ratio]Ordered By: Theo Thakkar on 59-38-0888Gokfkztfith distribution width (RBC) [Ratio]Erythrocyte distribution width [Ratio] by Automated countHigh 12.0-14.8OhiohealthErythrocytes [#/area] in Urine sediment by Automated countOrdered By: Theo Thakkar on 29-81-2069IQO Auto (Urine sed) [#/Area]Erythrocytes [#/area] in Urine sediment by Automated countHigh0-4 OhiohealthFerritinon 56-22-2873Uhntsntp [Mass/Vol]14.0 ng/mLLow23.9-336.2The [facility] Physician GroupComment on above:Performed By: #### MG, [id number], URIC, CBCNO, JAVIER, FE and TIBC, PTH, RENAL #### [facility] [address] [place] [address] USAFerritin [Mass/volume] in Serum or PlasmaOrdered By: Theo Thakkar on 62-27-7221Ffsqsrxg [Mass/Vol]Ferritin [Mass/volume] in Serum or Plasma Low23.9-336.2FPremier Health Miami Valley HospitalGlucose [Mass/volume] in Serum or PlasmaOrdered By: Theo Thakkar on 87-75-5441Kykqwvt [Mass/Vol]Glucose [Mass/volume] in Serum or CyropzAhxl59-399TzzcyjbjuOhiohealth Comment on above:ADA recommended reference rangeRandom Glucose Reference Range is dependent on time and content of last meal. Glucose of more than 200 mg/dL in a nonstressed, ambulatory subject supports the diagnosisof Diabetes Mellitus. Glucose [Mass/volume] in Urine by Test stripOrdered By: Theo Thakkar on 05-03-8098Oainkkl Test strip (U) [Mass/Vol]Glucose [Mass/volume] in Urine by Test stripNormalOhiohealthHematocrit Auto (Bld) [Volume fraction]Ordered By: Theo Thakkar on 60-87-4125Donlvcwwjp (Bld) [Volume fraction] Hematocrit [Volume Fraction] of Blood by Automated count38.8-50.0OhiohealthHemoglobin Test strip Ql (U)Ordered By: Theo Thakkar on 77-47-6745Rllnmbertm Ql (U)Hemoglobin [Presence] in Urine by Test stripHigh NegativeOhiohealthHemoglobin [Mass/volume] in Blood Ordered By: Theo Thakkar on 10-89-5913Gviehyjzgh (Bld) [Mass/Vol]Hemoglobin [Mass/volume] in Blood13.0-17.0OhiohealthHemogram CBC Without Diffon 28-86-6898Ijfxqcifgos distribution width (RBC) [Ratio]15.8 %High 12.0-14.8The [facility] Physician GroupComment on above:Performed By: #### MG, [id number], URIC, CBCNO, JAVIER, FE and TIBC, PTH, RENAL #### [facility] [address] [place] [id number] USAHematocrit (Bld) [Volume fraction]39.2 %Lcmdnj48.8-50.0The [facility]c Physician GroupComment on above:Performed By: #### MG, [id number], URIC, CBCNO, JAVIER, FE and TIBC, PTH, RENAL #### [facility] [address] [place] [id number] USAHemoglobin (Bld) [Mass/Vol]13.0 g/oWGxugkn26.0-17.0The [facility] Physician GroupComment on above:Performed By: #### MG, [id number], URIC, CBCNO, JAVIER, FE and TIBC, PTH, RENAL #### [facility] [address] StreetMCH (RBC) [Entitic mass]29.9 lqXkhmhr56.5-35.2The [facility] Physician GroupComment on above:Performed By: #### MG, SGCR97VH, URIC, CBCNO, JAVIER, FE and TIBC, PTH, RENAL #### [address]V (RBC) [Entitic vol]90.3 fUEvxmqn51.5-101The [facility] Physician GroupComment on above:Performed By: #### MG, [id number], URIC, CBCNO, JAVIER, FE and TIBC, PTH, RENAL #### [facility] [address] [place] [address] USAMean Corpuscular HGB Conc33.1 g/hKPgbnnf29.5-35.6The [facility] Physician GroupComment on above:Performed By: #### MG, RELP41QR, URIC, CBCNO, JAVIER, FE and TIBC, PTH, RENAL #### [place] [address] USAPlatelet mean volume (Bld) [Entitic vol]8.9 fLNormal 6.6-10.1The [facility] Physician GroupComment on above:Result Comment: PERFORMED BY: [place] [address] PATHOLOGIST OCCUPATIONAL HEALTH MANAGER ROS GUNDERSON M.D.Performed By: #### MG, [id number], URIC, CBCNO, JAVIER, FE and TIBC, PTH, RENAL #### [place] [address] USAPlatelets (Bld) [#/Vol]293 10*3/fVNisspd035-067Zdx [facility] GroupComment on above:Performed By: #### MG, [id number], URIC, CBCNO, JAVIER, FE and TIBC, PTH, RENAL #### [facility] [address] [place] [address] USARBC (Bld) [#/Vol]4.34 10*6/uLNormal3.90-5.60The [facility] Physician GroupComment on above:Performed By: #### MG, AWMT26ZD, URIC, CBCNO, JAVIER, FE and TIBC, PTH, RENAL #### [facility] [address] [place] [address] USAWBC (Bld) [#/Vol]6.9 10*3/uLNormal4.1-10.5The [facility] Physician GroupComment on above:Performed By: #### MG, TPMB37DX, URIC, CBCNO, JAVIER, FE and TIBC, PTH, RENAL #### [place] [address] USAHyaline casts [#/area] in Urine sediment by Automated countOrdered By: Theo Thakkar on 84-20-8070Gohqavx casts Auto (Urine sed) [#/Area]Hyaline casts [#/area] in Urine sediment by Automated count0-8OhiohealthIron [Mass/volume] in Serum or PlasmaOrdered By: Theo Thakkar on 81-36-8533Yhze [Mass/Vol]Iron [Mass/volume] in Serum or Tljkxw58-195 OhiohealthIron and TIBC Profileon 08-10-2024% Iron Yfzxfmryot81.9 %Rdp54-68Oyu [facility] Physician GroupComment on above:Performed By: #### MG, [id number], URIC, CBCNO, JAVIER, FE and TIBC, PTH, RENAL #### [facility] [address] [place] [address] USAIron [Mass/Vol]87 ug/aWVfcypb66-983Cso [facility] Phys[facility] GroupComment on above:Performed By: #### MG, [id number], URIC, CBCNO, JAVIER, FE and TIBC, PTH, RENAL #### [facility] [address] [place] [address] USATotal Iron Binding Qyceages804 ug/nPSsaqks162-331Qtf [facility] Physician GroupComment on above:Performed By: #### MG, QSYE14FI, URIC, CBCNO, JAVIER, FE and TIBC, PTH, RENAL #### [facility] [address] [place] [id number] USATransferrin [Mass/Vol]313 mg/uOBlprji323-294Joe [facility] Physician GroupComment on above:Performed By: #### MG, FPAV53LU, URIC, CBCNO, JAVIER, FE and TIBC, PTH, RENAL #### [facility] [address] [place] [address] USAKetones Test strip Ql (U)Ordered By: Theo Thakkar on 13-01-1088Qpojcyv Ql (U)Ketones [Presence] in Urine by Test stripNegMiddletown HospitalLeukocyte clumps [Presence] in Urine by AutomatedOrdered By: Theo Thakkar on 50-85-7539Jlackdusi clumps Auto Ql (U) Leukocyte clumps [Presence] in Urine by AutomatedOhioHealth Grady Memorial HospitalLeukocyte esterase [Presence] in Urine by Test stripOrdered By: Theo Thakkar on 21-85-0044Yybolffqk esterase Test strip Ql (U)Leukocyte esterase [Presence] in Urine by Test stripMary Rutan Hospital Leukocytes [#/area] in Urine sediment by Automated countOrdered By: Theo Thakkar on 37-48-3086QQW Auto (Urine sed) [#/Area]Leukocytes [#/area] in Urine sediment by Automated countHigh04FPremier Health Miami Valley HospitalLeukocytes [#/volume] corrected for nucleated erythrocytes in Blood by Automated counOrdered By: Theo Thakkar on 42-95-1592PFQ corrected for nucl RBC Auto (Bld) [#/Vol]Leukocytes [#/volume] corrected for nucleated erythrocytes in Blood by Automated coun 4.1-10.5FFlower HospitalH Auto (RBC) [Entitic mass]Ordered By: Theo Thakkar on 15-80-5336ODZ (RBC) [Entitic mass]MCH [Entitic mass] by Automated count27.5-35.2FFlower HospitalHC Auto (RBC) [Mass/Vol]Ordered By: Theo Thakkar on 52-68-2499AGPM (RBC) [Mass/Vol]MCHC [Mass/volume] by Automated count32.5-35.6FPremier Health Miami Valley HospitalMCV Auto (RBC) [Entitic vol]Ordered By: Theo Thakkar on 87-03-0686ONF (RBC) [Entitic vol]MCV [Entitic volume] by Automated count83.5-101OhiohealthMagnesiumon 59-40-3315Disiaydpp [Mass/Vol]2.1 mg/dLNormal1.9-2.7The [facility] Physician GroupComment on above:Performed By: #### MG, BCNS63KF, URIC, CBCNO, JAVIER, FE and TIBC, PTH, RENAL #### [facility] [address] [place] [address] USAMagnesium [Mass/volume] in Serum or PlasmaOrdered By: Theo Thakkar on 96-77-5727Rhjhqnllh [Mass/Vol]Magnesium [Mass/volume] in Serum or Plasma1.9-2.7FPremier Health Miami Valley HospitalMucus [Presence] in Urine by AutomatedOrdered By: Theo Thakkar on 70-86-5036Wztea Auto Ql (U)Mucus [Presence] in Urine by AutomatedOhiohealthNitrite Test strip Ql (U) Ordered By: Theo Thakkar on 38-42-8127Sgmahmw Ql (U)Nitrite [Presence] in Urine by Test stripNegativeOhiohealthNo Panel Information Ordered By: Theo Thakkar on 22-91-3616Kgifeanjw GFR (CKD-EPI)39.659 mL/Min OhiohealthPharmacy Creatinine Clearance (ChemN/[facility] Health CenterParathyrin.intact [Mass/volume] in Serum or Plasma Ordered By: Theo Thakkar on 33-44-2001Vbgqgplplz.intact [Mass/Vol] Parathyrin.intact [Mass/volume] in Serum or ShhggrGjwq71-44HazffukyjOhiohealthParathyroid Hormone Intacton 73-22-0629Nrppkvvwdwv Hormone Intact 96.1 pg/qWWisz63-46Kqi [facility] Physician GroupComment on above:Result Comment: PERFORMED BY: [place] [address] PATHOLOGIST OCCUPATIONAL HEALTH MANAGER ROS GUNDERSON M.D.Performed By: #### MG, [id number], URIC, CBCNO, JAVIER, FE and TIBC, PTH, RENAL #### [facility] [address] [place] [address] USAPhosphate [Mass/volume] in Serum or PlasmaOrdered By: Theo Vivian on 79-38-5154Umbjiybpa [Mass/Vol]Phosphate [Mass/volume] in Serum or Plasma2.5-4.5FPremier Health Miami Valley HospitalPlatelet mean volume Auto (Bld) [Entitic vol]Ordered By: Theo Vivian on 06-87-8794Vvsalpuo mean volume (Bld) [Entitic vol]Platelet mean volume [Entitic volume] in Blood by Automated count 6.6-10.1FPremier Health Miami Valley HospitalPlatelets Auto (Bld) [#/Vol]Ordered By: Theo Vivian on 78-50-7274Tqtrxazpo (Bld) [#/Vol]Platelets [#/volume] in Blood by Automated -637WrfziopbuOhiohealthPotassium [Moles/volume] in Serum or PlasmaOrdered By: Theo Vivian on 45-92-0618Gurafeqfr [Moles/Vol]Potassium [Moles/volume] in Serum or Plasma3.5-5.1FPremier Health Miami Valley HospitalProtein Creat Ratio Ur Randomon 38-37-6228Hqsbuvlggc, Urine (Random)114.00 mg/dLNormalThe [facility] GroupComment on above:Result Comment: No reference range establishedPerformed By: #### EM CHO CUU #### [place] [address] USAProtein (U) [Mass/Vol]81 mg/dLHigh0-9[facility] Physician GroupComment on above:Performed By: #### EM CHO, CUU #### [address] [place] [address] USAUrine Protein/Creatinine Opgdn739 mg/g{Cre}High0-200The [facility] Physician GroupComment on above:Result Comment: PERFORMED BY: [place] [address] PATHOLOGIST OCCUPATIONAL HEALTH MANAGER ROS GUNDERSON M.D.Performed By: #### BELEM CHORELESLI WEAVER #### [place] [address] USAProtein Test strip (U) [Mass/Vol]Ordered By: Theo Herrmanndir on 59-23-6801Hoaywmd (U) [Mass/Vol]Protein [Mass/volume] in Urine by Test strip HighNegativeOhiohealthProtein [Mass/volume] in Urine Ordered By: Theo Herrmanndir on 92-39-4945Mvleicp (U) [Mass/Vol]Protein [Mass/volume] in UrineHigh0-9OhiohealthRBC Auto (Bld) [#/Vol]Ordered By: Theo Vivian on 34-34-3496DLY (Bld) [#/Vol]Erythrocytes [#/volume] in Blood by Automated count3.90-5.60OhiohealthRenal Function Panel on 03-52-2304Elslacp [Mass/Vol]4.3 g/dLNormal3.5-5.7The [facility]ician GroupComment on above:Performed By: #### MG, KDEI85VR, URIC, CBCNO, JAVIER, FE and TIBC, PTH, RENAL #### [place] [id number] USAAnion gap [Moles/Vol]9.2 mmol/LNormal6.0-15.0The [facility] Physician GroupComment on above:Performed By: #### MG, CRUL25KQ, URIC, CBCNO, JAVIER, FE and TIBC, PTH, RENAL #### [place] [address] USACalcium [Mass/Vol]9.2 mg/dLNormal8.6-10.3The [facility] Physician GroupComment on above:Performed By: #### MG, [id number], URIC, CBCNO, JAVIER, FE and TIBC, PTH, RENAL #### [facility] [address] [place] [address] USAChloride [Moles/Vol]106 mmol/ZVreuwm01-158Xjc [facility] GroupComment on above:Performed By: #### MG, [id number], URIC, CBCNO, JAVIER, FE and TIBC, PTH, RENAL #### [facility] [address] [place] [address] USACO2 [Moles/Vol]27.7 mmol/VTezspz88.0-31.0The [facility] Physician GroupComment on above:Performed By: #### MG, [id number], URIC, CBCNO, JAVIER, FE and TIBC, PTH, RENAL #### [place] [address] USACreatinine [Mass/Vol]1.73 mg/dLHigh0.70-1.30The [facility] Physician GroupComment on above:Performed By: #### MG, [id number], URIC, CBCNO, JAVIER, FE and TIBC, PTH, RENAL #### [place] [address] USAEstimated GFR39.659 mL/MinNormalThe [facility]ician [facility] CenterComment on above:Performed By: #### MG, [id number], URIC, CBCNO, JAVIER, FE and TIBC, PTH, RENAL #### [place] [address] USAGlucose [Mass/Vol]119 mg/mEDqxb11-563Bei [facility]ician [facility] Medical CenterComment on above:Result Comment: Random Glucose Reference Range is dependent on time and content of last meal. Glucose of more than 200 mg/dL in a nonstressed, ambulatory subject supports the diagnosis of Diabetes Mellitus. ADA recommended reference rangePerformed By: #### MG, [id number], URIC, CBCNO, JAVIER, FE and TIBC, PTH, RENAL #### [place] [address] USAPhosphate [Mass/Vol]3.4 mg/dLNormal2.5-4.5The [facility] Physician GroupComment on above:Performed By: #### MG, [id number], URIC, CBCNO, JAVIER, FE and TIBC, PTH, RENAL #### [facility] [address] [place] [address] USAPotassium [Moles/Vol]4.9 mmol/LNormal3.5-5.1The [facility] Physician GroupComment on above:Performed By: #### MG, [id number], URIC, CBCNO, JAVIER, FE and TIBC, PTH, RENAL #### [facility] [address] [place] [address] USASodium [Moles/Vol]138 mmol/DLhodty246-961Khb [facility] GroupComment on above:Performed By: #### MG, OBKO97MN, URIC, CBCNO, JAVIER, FE and TIBC, PTH, RENAL #### [facility] [address] [place] [address] USAUrea nitrogen [Mass/Vol]24 mg/dLNormal7-25The [facility]ician GroupComment on above:Performed By: #### MG, SXSB18VZ, URIC, CBCNO, JAVIER, FE and TIBC, PTH, RENAL #### [facility] [address] [place] [address] USASerum or plasma anion gap determinationOrdered By: Theo Thakkar on 76-09-8718Xqhqg gap [Moles/Vol]Serum or plasma anion gap determination 6.0-15.0[facility]lenbeigh Hospitalerum or plasma iron binding capacity measurement (mass/volume)Ordered By: Theo Thakkar on 78-08-7412Lyin binding capacity [Mass/Vol]Iron binding capacity [Mass/volume] in Serum or Atnxfl106-221 [facility]igh Hospitalerum or plasma iron saturation measurement (mass fraction)Ordered By: Theo Thakkar on 96-39-3736Tnls saturation [Mass fraction]Iron saturation [Mass Fraction] in Serum or OafbefDfq44-42FrjkexwivGlenbeigh Hospitalodium [Moles/volume] in Serum or PlasmaOrdered By: Theo Thakkar on 20-23-7410Maywsb [Moles/Vol]Sodium [Moles/volume] in Serum or Plasma 136-145Glenbeigh Hospitalpecific gravity Test strip (U) [Rel density]Ordered By: Theo Thakkar on 55-51-8043Etqmnotj gravity (U) [Rel density] Specific gravity of Urine by Test strip1.001-1.030OhiohealthTransferrin [Mass/volume] in Serum or PlasmaOrdered By: Theo Thakkar on 02-16-9621Discxispyja [Mass/Vol]Transferrin [Mass/volume] in Serum or Plasma 203-362OhiohealthUrate [Mass/volume] in Serum or Plasma Ordered By: Theo Herrmanndir on 20-73-4032Nifhc [Mass/Vol]Urate [Mass/volume] in Serum or Plasma4.4-7.6FPremier Health Miami Valley HospitalUrea nitrogen [Mass/volume] in Serum or PlasmaOrdered By: Theo Joycer on 07-15-2211Uxpi nitrogen [Mass/Vol]Urea nitrogen [Mass/volume] in Serum or Plasma7-25OhiohealthUric Acidon 69-09-6582Fmirp [Mass/Vol]6.2 mg/dLNormal 4.4-7.6The [facility] Physician GroupComment on above:Performed By: #### MG, [id number], URIC, CBCNO, JAVIER, FE and TIBC, PTH, RENAL #### [facility] [address] [place] [address] USAUrine Cultureon 11-95-6689Gmkojfcl identified Cx Nom (U)No Growth 2 Days PERFORMED BY: [place] [address] PATHOLOGIST OCCUPATIONAL HEALTH MANAGER ROS GUNDERSON M.D.NormalThe [facility] Physician GroupComment on above: Performed By: #### MG, IQDI81RP, URIC, CBCNO, JAVIER, FE and TIBC, PTH, RENAL #### [facility] [address] [place], [place] [address]Urine cultureOrdered By: Theo Thakkar on 57-85-2381Uveezfzh identified Cx Nom (U)Urine cultureOhiohealthUrine protein/creatinine ratioOrdered By: Theo Thakkar on 54-23-2473Vwbsxxe/Creatinine (U) [Ratio]Urine protein/creatinine ratioHigh0-200OhiohealthUrobilinogen Test strip (U) [Mass/Vol]Ordered By: Theo Thakkar on 66-26-3589Ucpgohnxzklh (U) [Mass/Vol]Urobilinogen [Mass/volume] in Urine by Test stripNormalOhiohealthVitamin D 25 Hydroxy Totalon 53-88-5626Keshjrs D 25 Hydroxy Total51.2 ng/xUIihqqh85-957Jfm [facility] Physician GroupComment on above:Result Comment: VITAMIN D STATUS 25(OH)VITAMIN D RANGE (ng/mL) Deficient <20 Insufficient 20 to <30 Sufficient 30 to 100 Reference: Wayne Patterson, John VILLEGAS, et al. Evaluation,treatment, and prevention of vitamin D deficiency; an Endocrine Society clinical practice guideline. JCEM. 2010; 96(7):1911-. PERFORMED BY: [place] [address] PATHOLOGIST OCCUPATIONAL HEALTH MANAGER ROS GUNDERSON M.D.Performed By: #### MG, [id number], URIC, CBCNO, JAVIER, FE and TIBC, PTH, RENAL #### [address] StreetVitamin D+Metabolites [Mass/volume] in Serum or Plasma Ordered By: Theo Thakkar on 29-15-8550Ozmisei D+Metabolites [Mass/Vol]Vitamin D+Metabolites [Mass/volume] in Serum or Tmorbm07-587JbusmepfsOhiohealthComment on above:VITAMIN D STATUS 25(OH)VITAMIN D RANGE (ng/mL) Deficient <20 Insufficient 20 to <97Qdqeuzeixd46 to 100Reference: Wayne Patterson, John VILLEGAS, et al. Evaluation,treatment, and prevention of vitamin D deficiency; an Endocrine Society clinical practice guideline. JCEM. 2010; 96 (7):1911-30.pH Test strip (U)Ordered By: Theo Thakkar on 16-25-9307mU (U)pH of Urine by Test strip5.0-9.0OhiohealthUrology Office/Clinic Noteon 03-83-9176Clgeyog Office/Clinic NoteUrology Office/Clinic Note Chief Complaint gross [...] day(s), # 14 cap(s), Refills(s) 0, Pharmacy: [facility]/pharmacy #[id number], 178, cm, 08/08/24 12:38:00 EDT, Height/Length Dosing, 90.4, kg, 08/08/24 12:38:00 EDT,Weight Dosing 82237 Measure Post Void residual urine and/or bladder capacity by US- non-imaging Body Mass Index (BMI) documented 3008F Current tobacco smoker 1034F Depression Screening Negative 3352F E&M of Est. Patient Moderate 30-39 Min 37852 Influenza immunization status assessed 1030F Medication list [...] Urnls Dip Stick Auto w/o Microscopy POC 03345 Orders: tadalafil, 20 mg = 1 tab(s), Oral, As Directed, Do not exceed 20mg within 48 hours., # 30 tab(s), Refills(s) 1, Pharmacy: [facility] #[id number], 178, cm, 07/07/23 9:25:00 EST, Height/Length Dosing, 92, kg, 07/07/23 9:25:00 EST, Weight Dosing Follow-up With When Contact Information [facility] Additional Instructions: Only if needed/new [...] Oral, q12hr nitroglycerin 0.4 mg sublingual Tab [place] 5/325 Tab, Oral, q6hr pravastatin 40 mg [...] Cigarettes, Yes, 08/08/2024 F (more content not included)...[facility] HospitalComment on above:Result Comment: Electronically Signed By: CLAIRE JAMES PA-C\.br\Date and Time Signed: 08/08/2512:51 EDTAmbulatory Visit Summaryon [...] prescribing physician if questions or concerns acetaminophen-hydrocodone ([place] 5/325 Tab) amlodipine (amLODIPine 10 mg Tab) [...] MD Where: [facility] [address] [place], [place] [id number]- You Need to Schedule the Following Appointments Follow Up with Barbara JOHNSTON MD, URL When: Comments: 1 yr w/ PSA Where: [facility] [address], [place] [address] [phone] Medications What How Much When Instructions Unchanged tadalafil (Cialis 20 mg Tab) 1 Tablets By Mouth As Directed Do not exceed 20mg within 48 hours. Unchanged acetaminophen-hydrocodone ([place] 5/ 325 Tab) By Mouth Every 6 [...] medicines. ??? You villegas (more content not included)...[facility] HospitalUrology Office/Clinic Noteon 10-94-8008Nyvsqew Office/Clinic NoteUrology Office/Clinic Note Chief Complaint hx [...] URL [facility] [address], [place] [phone] Additional Instructions: 1 yr w/ PSA Patient [...] (urinary tract infection) UTI (more content not included)...[facility] HospitalComment on above:Result Comment: Electronically Signed By: Barbara JOHNSTON MD\.br\Date and Time Signed: 04/18/24 12:11 EST\.br\Electronically Co-Signed By: Rosario Byrne.br\Date and Time Co-Signed: 04/18/24 12:10 ESTC Urineon 45-29-5996Dcxcxvta identified Cx Nom (U)Microbiology PROCEDURE: Urine Culture [...] Locations R1: This test was performed at: [facility], [address] [place] [address], [address]- , , GhzeshQnqxenLicking Memorial HospitalComment on above:Performed By: #### [id number] #### [facility] [address] [place] [address]Vrgjilg [Mass/volume] in Serum or Plasma by Bromocresol green (BCG) dye binding methoOrdered By: Theo Thakkar on 60-79-2895Lybmkoc BCG dye [Mass/Vol]4.2 g/dL3.5-5.7FPremier Health Miami Valley HospitalBacteria [Presence] in Urine by AutomatedOrdered By: Theo Thakkar on 30-65-4241Ppbzybbh Auto Ql (U)None seen [HPF]None SeenOhiohealthBilirubin Test strip Ql (U) Ordered By: Theo Thakkar on 37-13-4215Bpxcdrfau Ql (U)NegativeNegativeOhiohealthCalcium [Mass/volume] in Serum or PlasmaOrdered By: Theo Thakkar on 69-08-6211Unnkdct [Mass/Vol]9.4 mg/dL8.6-10.3FPremier Health Miami Valley HospitalCarbon dioxide, total [Moles/volume] in Serum or PlasmaOrdered By: Theo Thakkar on 28-61-1080AE6 [Moles/Vol]24.9 mmol/L21.0-31.0OhiohealthChloride [Moles/volume] in Serum or PlasmaOrdered By: Theo Thakkar on 22-46-5247Xxpmislj [Moles/Vol]105 mmol/A33-582HokmzlrddOhiohealthColor Auto (U)Ordered By: Theo Thakkar on 52-77-9188Shamk (U)YellowYellow OhiohealthCreatinine [Mass/volume] in Serum or Plasma Ordered By: Theo Thakkar on 02-19-1886Dsbmdnstig [Mass/Vol]1.67 mg/dLHigh 0.70-1.30OhiohealthCreatinine [Mass/volume] in Urine Ordered By: Theo Thakkar on 08-83-2013Mnntpapdhs (U) [Mass/Vol]173.00 mg/dL OhiohealthComment on above:No reference range established Epithelial cells.squamous [#/area] in Urine sediment by Automated countOrdered By: Theo Thakkar on 47-59-1580Nzurizrcmi cells.squamous Auto (Urine sed) [#/Area] 1-2 [HPF]0-2FPremier Health Miami Valley HospitalErythrocyte distribution width Auto (RBC) [Ratio]Ordered By: Theo Thakkar on 44-79-8971Tcrdempohej distribution width (RBC) [Ratio]15.0 %High12.0-14.8[facility] Erythrocytes [#/area] in Urine sediment by Automated countOrdered By: Theo Thakkar on 83-07-0857NGW Auto (Urine sed) [#/Area]10-19 [HPF]High04FPremier Health Miami Valley HospitalGlucose [Mass/volume] in Serum or PlasmaOrdered By: Theo Thakkra on 31-36-8588Kcnbhjq [Mass/Vol]95 mg/eO35-479GfxbfxflwOhiohealthComment on above:ADA recommended reference rangeRandom Glucose Reference Range is dependent on time and content of last meal. Glucose of more than 200 mg/dL in a nonstressed, ambulatory subject supports the diagnosisof Diabetes Mellitus.Glucose [Mass/volume] in Urine by Test stripOrdered By: Theo Thakkar on 52-00-2517Fehaqpv Test strip (U) [Mass/Vol]Normal mg/dLNormalOhiohealthGranular casts [#/area] in Urine by Computer assisted method Ordered By: Theo Thakkar on 95-87-3522Lzjchxil casts Computer assisted (U) [#/Area]5-9 [LPF]HighNone SeenOhiohealthHematocrit Auto (Bld) [Volume fraction]Ordered By: Theo Thakkar on 03-54-0446Fmexishths (Bld) [Volume fraction]34.7 %Low38.8-50.0OhiohealthHemoglobin Test strip Ql (U)Ordered By: Theo Thakkar on 15-83-5381Zymkmyfchg Ql (U)1+High NegativeOhiohealthHemoglobin [Mass/volume] in Blood Ordered By: Theo Thakkar on 13-19-7257Xemnlvsmur (Bld) [Mass/Vol]11.4 g/dLLow 13.0-17.0OhiohealthHyaline casts [#/area] in Urine sediment by Automated countOrdered By: Theo Thakkar on 97-23-0022Cgbboaq casts Auto (Urine sed) [#/Area]20-49 [LPF]High0-8[facility] Ketones Test strip Ql (U)Ordered By: Theo Thakkar on 35-81-2310Kbgqbol Ql (U) NegativeNegSouthern Ohio Medical CenterLeukocyte clumps [Presence] in Urine by AutomatedOrdered By: Theo Thakkar on 35-11-9253Cwvpjwhmr clumps Auto Ql (U)Many [LPF]HighNone SeenOhiohealthLeukocyte esterase [Presence] in Urine by Test stripOrdered By: Theo Thakkar on 22-49-5032Ojzftrpkq esterase Test strip Ql (U)4+HighNegSouthern [facility] Medical Center Leukocytes [#/area] in Urine sediment by Automated countOrdered By: Theo Thakkar on 21-65-6148WQS Auto (Urine sed) [#/Area]Innumerable [HPF]High0-4FPremier Health Miami Valley HospitalLeukocytes [#/volume] corrected for nucleated erythrocytes in Blood by Automated counOrdered By: Theo Thakkar on 44-53-1403WHS corrected for nucl RBC Auto (Bld) [#/Vol]6.9 10*3/uL4.1-10.5FFlower HospitalH Auto (RBC) [Entitic mass]Ordered By: Theo Thakkar on 02-25-2024 MCH (RBC) [Entitic mass]28.4 pg27.5-35.2FPremier Health Miami Valley HospitalMCHC Auto (RBC) [Mass/Vol]Ordered By: hTeo Thakkar on 27-12-8504BGTK (RBC) [Mass/Vol] 32.9 g/dL32.5-35.6FPremier Health Miami Valley HospitalMCV Auto (RBC) [Entitic vol] Ordered By: Theo Thakkar on 50-89-0449CSF (RBC) [Entitic vol]86.3 fL83.5-101 [facility]healthMagnesium [Mass/volume] in Serum or Plasma Ordered By: Theo Thakkar on 34-64-9146Lyayiewbm [Mass/Vol]2.2 mg/dL1.9-2.7 [facility]healthMucus [Presence] in Urine by AutomatedOrdered By: Theo Thakkar on 42-15-0890Azbfk Auto Ql (U)Rare [LPF]OhiohealthNitrite Test strip Ql (U)Ordered By: Theo Thakkar on 02-25-2024 Nitrite Ql (U)NegativeNegativeOhiohealthNo Panel InformationOrdered By: Theo Thakkar on 90-97-6918Acaljwbqw GFR (CKD-EPI)41.634 mL/MinOhiohealthPharmacy Creatinine Clearance (ChemN/A OhiohealthParathyrin.intact [Mass/volume] in Serum or PlasmaOrdered By: Theo Thakkar on 74-97-4245Kcjufyffgk.intact [Mass/Vol]97.8 pg/vGLiph96-12ZgiepuhxmOhiohealthPhosphate [Mass/volume] in Serum or PlasmaOrdered By: Theo Thakkar on 89-72-1711Xkeofxoyt [Mass/Vol]3.6 mg/dL 2.5-4.5FPremier Health Miami Valley HospitalPlatelet mean volume Auto (Bld) [Entitic vol]Ordered By: Theo Thakkar on 73-94-2994Wcowuagx mean volume (Bld) [Entitic vol]8.9 fL6.6-10.1FPremier Health Miami Valley HospitalPlatelets Auto (Bld) [#/Vol] Ordered By: Theo Thakkar on 12-04-4171Xkgpgffrb (Bld) [#/Vol]305 10*3/xY426-007 [facility]healthPotassium [Moles/volume] in Serum or Plasma Ordered By: Teho Thakkar on 78-01-5298Tlpwxfijy [Moles/Vol]4.8 mmol/L3.5-5.1 [facility]healthProtein Test strip (U) [Mass/Vol]Ordered By: Theo Thakkar on 74-12-9708Drdolaw (U) [Mass/Vol]100 mg/dLHighNegSouthern Ohio Medical CenterProtein [Mass/volume] in UrineOrdered By: Theo Thakkar on 64-05-7208Myauqty (U) [Mass/Vol]136 mg/dLHigh0-9OhiohealthRBC Auto (Bld) [#/Vol]Ordered By: Theo Thakkar on 13-33-5612GMV (Bld) [#/Vol]4.02 10*6/uL3.90-5.60[facility]igh Hospitalerum or plasma anion gap determinationOrdered By: Theo Thakkar on 12-96-5402Wiado gap [Moles/Vol]11.9 mmol/L6.0-15.0[facility]beigh Hospitalodium [Moles/volume] in Serum or PlasmaOrdered By: Theo Thakkar on 44-27-5952Aftcxj [Moles/Vol]137 mmol/E919-163CfdpgcerhGlenbeigh Hospitalpecific gravity Test strip (U) [Rel density]Ordered By: Theo Thakkar on 89-56-5835Jeuncvkz gravity (U) [Rel density]1.0181.001-1.030OhiohealthUrate [Mass/volume] in Serum or PlasmaOrdered By: Theo Thakkar on 95-53-1147Gerav [Mass/Vol]5.7 mg/dL4.4-7.6FPremier Health Miami Valley HospitalUrea nitrogen [Mass/volume] in Serum or PlasmaOrdered By: Theo Thakkar on 11-51-3801Wymh nitrogen [Mass/Vol]23 mg/dL7-25OhiohealthUrine appearance Ordered By: Theo Thakkar on 75-26-0450Qjveoqkikp (U)CloudyAbnormalClearFPremier Health Miami Valley HospitalUrine culture routineOrdered By: Theo Thakkar on 64-69-0436Lrdhjvcp identified Cx Nom (U)Staphylococcus aureusAbSalem Regional Medical CenterUrine protein/creatinine ratioOrdered By: Theo Thakkar on 78-84-3673Czaxvtt/Creatinine (U) [Ratio]786 mg/g{Cre}High0-200OhiohealthUrobilinogen Test strip (U) [Mass/Vol]Ordered By: Theo Thakkar on 91-12-4128Tcokqpyrvrwc (U) [Mass/Vol]Normal mg/dLNoCity HospitalVitamin D+Metabolites [Mass/volume] in Serum or PlasmaOrdered By: Theo Thakkar on 85-27-5914Pmeehgn D+Metabolites [Mass/Vol]60.3 ng/yT42-548 [facility]healthComment on above:VITAMIN D STATUS 25(OH)VITAMIN D RANGE (ng/mL) Deficient <20 Insufficient 20 to <17Xvxzmeirfa48 to 100Reference: Grecia MF,Wayne NC, John VILLEGAS, et al. Evaluation,treatment, and prevention of vitamin D deficiency; an Endocrine Society clinical practice guideline. JCEM. 2010; 96(7):1911-30.pH Test strip (U)Ordered By: Theo Thakkar on 84-13-6599yG (U)6.0 [pH]5.0-9.0OhiohealthLab Reportson 27-22-3087Iby Reports [id number]#1.00TIFLouis Stokes Cleveland VA Medical CenterAlanine aminotransferase [Enzymatic activity/volume] in Serum or Plasma Ordered By: Shaikh Dotty on 72-95-3484ZQR [Catalytic activity/Vol]13 U/L7-52 [facility]healthAlbumin [Mass/volume] in Serum or Plasma by Bromocresol green (BCG) dye binding methoOrdered By: Shaikh Dotty on 10-01-2023 Albumin BCG dye [Mass/Vol]4.2 g/dL3.5-5.7FPremier Health Miami Valley Hospital Alkaline phosphatase [Enzymatic activity/volume] in Serum or PlasmaOrdered By: Shaikh Dotty on 32-40-4635BTW [Catalytic activity/Vol]58 U/S50-931FwaqjratqOhiohealthAspartate aminotransferase [Enzymatic activity/volume] in Serum or PlasmaOrdered By: Shaikh Dotty on 30-03-4339VGW [Catalytic activity/Vol]13 U/G28-78TwwombolrOhiohealthBasophils Auto (Bld) [#/Vol]Ordered By: Shaikh Dotty on 95-42-9524Rnzxapfaq (Bld) [#/Vol]0.0 10*3/uL 0.0-0.2FPremier Health Miami Valley HospitalBasophils/100 WBC Auto (Bld)Ordered By: Shaikh Dotty on 11-63-9803Ozcldajhr/100 WBC (Bld)0.4 %.OhiohealthBilirubin.total [Mass/volume] in Serum or PlasmaOrdered By: Shaikh Dotty on 16-48-5960Ydkqivoyc [Mass/Vol]0.3 mg/dL0.3-1.0[facility]healthCalcium [Mass/volume] in Serum or PlasmaOrdered By: Shaikh Dotty on 71-36-7734Pxpqbam [Mass/Vol]9.4 mg/dL8.6-10.3FPremier Health Miami Valley HospitalCarbon dioxide, total [Moles/volume] in Serum or PlasmaOrdered By: Shaikh Dotty on 44-97-4003ER3 [Moles/Vol]27.0 mmol/L21.0-31.0[facility]healthChloride [Moles/volume] in Serum or PlasmaOrdered By: Shaikh Dotty on 84-84-6503Gauribca [Moles/Vol]108 mmol/S04-765LbnvnolabOhiohealthCholesterol [Mass/volume] in Serum or PlasmaOrdered By: Shaikh Dotty on 57-06-6739Qxtjmtiwzuo [Mass/Vol]135 mg/oH979-422XminccpgxOhiohealthComment on above:Chol less than 200 mg/dl low riskChol 201-239 mg/dl borderline riskChol 240 mg/dl and greater high riskCholesterol in LDL Calc [Mass/Vol]Ordered By: Shaikh Dotty on 02-55-7614Jaihjzrcyly in LDL [Mass/Vol] 81 mg/dL0-100OhiohealthComment on above:LDL ATP III CLASSIFICATIONLDL less than 100 mg/dL OptimalLDL 100-129 mg/dL Near or above atciecnGJK221-052 mg/dL Borderline highLDL 160-189 mg/dL HighLDL greater than 189 mg/dL Very highCholesterol in VLDL Calc [Mass/Vol]Ordered By: Shaikh Dotty on 60-48-2532Moxygjwzlni in VLDL [Mass/Vol]16 mg/dLOhiohealthCreatinine [Mass/volume] in Serum or PlasmaOrdered By: Shaikh Dotty on 19-04-5456Frquqsplly [Mass/Vol]1.89 mg/dL0.70-1.30OhiohealthCreatinine [Mass/volume] in UrineOrdered By: Shaikh Dotty on 10-01-2023 Creatinine (U) [Mass/Vol]164.0 mg/dLOhiohealthComment on above:No reference range establishedEosinophils Auto (Bld) [#/Vol]Ordered By: Shaikh Dotty on 60-75-1557Iugugozfbcp (Bld) [#/Vol]0.2 10*3/uL0.0-0.45OhiohealthEosinophils/100 WBC Auto (Bld)Ordered By: Shaikh Dotty on 39-08-0598Osgzkjoyezg/100 WBC (Bld)2.7 %.[facility] Erythrocyte distribution width Auto (RBC) [Ratio]Ordered By: Shaikh Dotty on 30-96-8687Vipfbjggdjy distribution width (RBC) [Ratio]14.9 %12.0-14.8OhiohealthGlobulin Calc (S) [Mass/Vol]Ordered By: Shaikh Dotty on 95-02-8802Eqlirnhn (S) [Mass/Vol]2.5 g/dLOhiohealth Glucose [Mass/volume] in Serum or PlasmaOrdered By: Shaikh Dotty on 10-01-2023 Glucose [Mass/Vol]115 mg/cI22-051DaaqnjwffOhiohealthComment on above:ADA recommended reference rangeRandom Glucose Reference Range is dependent on time and content of last meal. Glucose of more than 200 mg/dL in a nonstressed, ambulatory subject supports the diagnosisof Diabetes Mellitus. Glucose mean value [Mass/volume] in Blood Estimated from glycated hemoglobin Ordered By: Shaikh Dotty on 29-04-5235Dmqmosx glucose Estimated from glycated hemoglobin (Bld) [Mass/Vol]128 mg/dLOhiohealthHematocrit Auto (Bld) [Volume fraction]Ordered By: Shaikh Dotty on 52-58-3070Lpkbvzhqrn (Bld) [Volume fraction]37.2 %38.8-50.0[facility] Hemoglobin A1c percentageOrdered By: Shaikh Dotty on 50-09-5626KlE7i (Bld) [Mass fraction]6.1 %4.3-5.6FPremier Health Miami Valley HospitalComment on above: Increased risk for diabetes: 5.7 - 6.4diabetes: >6.4glycemic control for adults with diabetes: <7.0Hemoglobin [Mass/volume] in BloodOrdered By: Shaikh Dotty on 55-93-8556Hiasxphfcl (Bld) [Mass/Vol]12.3 g/dL13.0-17.0[facility]healthLeukocytes [#/volume] corrected for nucleated erythrocytes in Blood by Automated counOrdered By: Shaikh Dotty on 65-04-1115EZH corrected for nucl RBC Auto (Bld) [#/Vol]8.3 10*3/uL4.1-10.5FPremier Health Miami Valley Hospital Lymphocytes Auto (Bld) [#/Vol]Ordered By: Shaikh Dotty on 35-56-7308Hzxwaxfjijc (Bld) [#/Vol]1.3 10*3/uL1.00-4.8[facility] Lymphocytes/100 WBC Auto (Bld)Ordered By: Shaikh Dotty on 10-01-2023 Lymphocytes/100 WBC (Bld)16.1 %.[facility] Auto (RBC) [Entitic mass]Ordered By: Shaikh Dotty on 80-79-7233FEM (RBC) [Entitic mass] 30.5 pg27.5-35.2FPremier Health Miami Valley HospitalMCHC Auto (RBC) [Mass/Vol] Ordered By: Shaikh Dotty on 80-63-0645YDCW (RBC) [Mass/Vol]33.1 g/dL32.5-35.6 [facility]healthMCV Auto (RBC) [Entitic vol]Ordered By: Shaikh Dotty on 11-29-6786XLS (RBC) [Entitic vol]92.2 fL83.5-101OhiohealthMonocytes Auto (Bld) [#/Vol]Ordered By: Shaikh Dotty on 93-86-7560Jmenihtnw (Bld) [#/Vol]0.6 10*3/uL0.0-0.8OhiohealthMonocytes/100 WBC Auto (Bld)Ordered By: Shaikh Dotty on 10-01-2023 Monocytes/100 WBC (Bld)7.6 %.OhiohealthNeutrophils Auto (Bld) [#/Vol]Ordered By: Shaikh Dotty on 29-38-5901Inzszuxrgmu (Bld) [#/Vol]6.1 10*3/uL1.8-7.7FPremier Health Miami Valley HospitalNeutrophils/100 WBC Auto (Bld) Ordered By: Shaikh Dotty on 72-31-2734Khsdjqytvoh/100 WBC (Bld)73.2 %.[facility]healthNo Panel InformationOrdered By: Shaikh Dotty on 59-44-0757Auwzmijow GFR (CKD-EPI)35.887 mL/MinOhiohealth Pharmacy Creatinine Clearance (ChemN/AFPremier Health Miami Valley HospitalNucleated erythrocytes [Presence] in Blood by Automated countOrdered By: Shaikh Dotty on 20-28-7235Bloyxplnn RBC Auto Ql (Bld)0.1 /100{WBC}0-0.5FPremier Health Miami Valley HospitalPlatelet mean volume Auto (Bld) [Entitic vol]Ordered By: Shaikh Dotty on 07-01-1474Lkgjrtse mean volume (Bld) [Entitic vol]8.7 fL6.6-10.1 [facility]healthPlatelets Auto (Bld) [#/Vol]Ordered By: Shaikh Dotty on 36-95-5817Cjtiyizwt (Bld) [#/Vol]270 10*3/oY460-692JrfamlouuOhiohealthPotassium [Moles/volume] in Serum or PlasmaOrdered By: Shaikh Dotty on 58-68-9628Vtzdnoclp [Moles/Vol]4.9 mmol/L3.5-5.1FPremier Health Miami Valley HospitalProstate specific Ag [Mass/volume] in Serum or PlasmaOrdered By: Barbara Johnston on 60-19-0471Ororohse specific Ag [Mass/Vol]0.420 ng/mL 0.000-4.000OhiohealthComment on above:Serial tumor marker results determined by assays using different manufacturers or methods may not be comparable.[facility] mosquito sprayer and method:[place] DXI, CHEMILUMINESCENT IMMUNOASSAY.Protein [Mass/volume] in Serum or PlasmaOrdered By: Shaikh Dotty on 10-26-1544Medcifl [Mass/Vol]6.7 g/dL6.4-8.9OhiohealthProtein [Mass/volume] in UrineOrdered By: Shaikh Dotty on 20-73-0299Seubktl (U) [Mass/Vol]124 mg/dL0-9OhiohealthRBC Auto (Bld) [#/Vol]Ordered By: Shaikh Dotty on 84-21-4451VIO (Bld) [#/Vol]4.04 10*6/uL3.90-5.60[facility] Hospitalerum or plasma albumin/globulin mass ratioOrdered By: Shaikh Dotty on 10-01-2023 Albumin/Globulin [Mass ratio]1.7 {ratio}[facility] Hospitalerum or plasma anion gap determinationOrdered By: Shaikh Dotty on 21-77-1128Liiqo gap [Moles/Vol]9.9 mmol/L6.0-15.0[facility] Hospitalerum or plasma high density lipoprotein (HDL) cholesterol measurementOrdered By: Shaikh Dotty on 30-50-0205Prfjsqqvprg in HDL [Mass/Vol]38 mg/nW24-77FhupidmboOhiohealthComment on above:HDL CHOL ATP-III CLASSIFICATION Cardiovascular RiskHDL > or equal to 60 mg/dL LOWHDL < 40 mg/dL HIGHSerum or plasma total cholesterol/high density lipoprotein (HDL) cholesterol mass ratOrdered By: Shaikh Dotty on 91-97-2654Ezcwenstwai.total/Cholesterol in HDL [Mass ratio]3.6 {ratio}<5.0Glenbeigh Hospitalodium [Moles/volume] in Serum or PlasmaOrdered By: Shaikh Dotty on 22-31-4582Jltuuc [Moles/Vol]140 mmol/G466-351 OhiohealthThyrotropin [Units/volume] in Serum or Plasma Ordered By: Shaikh Dotty on 02-64-7663JTG Qn1.61 m[IU]/L0.45-5.33OhiohealthTriglyceride [Mass/volume] in Serum or PlasmaOrdered By: Shaikh Dotty on 84-86-2282Rqtaetipxhle [Mass/Vol]80 mg/dL0-149OhiohealthComment on above:TRIG ATP III CLASSIFICATIONTRIG less than 150 mg/dL NormalTRIG 150-199 mg/dL Borderline highTRIG 200-500 mg/dL High TRIG greater than 500 mg/dL Very highStandard traceable to the Center for Disease Conrtrol and Prevention (CDC) test method.Urea nitrogen [Mass/volume] in Serum or PlasmaOrdered By: Shaikh Dotty on 86-11-9703Putk nitrogen [Mass/Vol] 33 mg/dL7-25OhiohealthWBC Auto (Bld) [#/Vol]Ordered By: Shaikh Dotty on 09-42-0139SRS (Bld) [#/Vol]8.3 10*3/uL4.1-10.5FPremier Health Miami Valley HospitalAmbulatory Visit Summaryon 65-97-2996Qgdwzkjccs Visit Summary YESENIA BROUSSARD :1945 Visit Date:09/18/2023 Ambulatory Visit Instructions Your Diagnosis Nocturia Erectile dysfunction BPH with urinary obstruction History of prostate cancer History of UTI Your Care Team Attending Physician - Barbara JOHNSTON MD Primary Care Physician - DOTTY MAK, This Is Your Medications List tadalafil (Cialis 20 mg Tab) Contact prescribing physician if questions or concerns acetaminophen-hydrocodone ([place] 5/325 Tab) amlodipine (amLODIPine 5 mg Tab) [...] with PRESTON MAK, GLO Ortega When: Where: [address] [place] [address]- Medications What How Much When Instructions Unchanged tadalafil (Cialis 20 mg Tab) 1 Tablets By Mouth As Directed Do not exceed 20mg within 48 hours. Unchanged acetaminophen-hydrocodone ([place] 5/ 325 Tab) By Mouth Every 6 [...] Keep a bladder diary (more content not included)...[facility] HospitalPatient Educationon 07-68-2917Tpjlbik EducationUrology Urinary Frequency, Adult Urinary frequency means [...] keep your urine pale yellow. ? Take eflv-uhp-hmuxdly or prescription medicines. ? Eat foods that are high in fiber, such as beans, whole grains, and fresh fruits and vegetables. ? Limit foods that are high in fat and processed sugars, such as fried or sweet foods. General instructions ? Take ukul-nti-pahspbw and prescription medicines only as told by [...] muscles that help control urination. ? Take xjta-cbr-rjdpugk and prescription medicines only as told by your health care provider. ? Contact a health care provider if your symptoms do not improve or get worse. This information is not intended to replace advice given to you by your health care provider. Make sure you discuss any questions you have with your health care provider. Document Revised: 12/21/2020 Document Reviewed: 12/21/2020 [employer] Patient Education ? 2022 [employer].[facility] Urology Office/Clinic Noteon 57-32-2380Ctrwtid Office/Clinic NoteChief Complaint 3m to med change [...] Information PRESTON MAK, Barbara Warner, URL [address] [id number]- Additional Instructions: 6 mos w/ PSA Patient Education Urinary Frequency, Adult I, Tabitha Saenz, personally scribed for Dr. Johnston on 09/18/2023 11:55:58. . Documentation recorded by the scribTabitha boswell, accurately reflects the services(s) I performed and decisions made by me. Authenticated by Dr. Johnston on 09/18/2023 11:59:13. Problem List/Past Medical History Ongoing Anxiety BPH with (more content not included)...[facility] HospitalComment on above:Result Comment: Electronically Signed By: Barbara JOHNSTON MD\.br\Date and Time Signed: 09/18/23 11:59 EDT\.br\Electronically Co-Signed By: Tabitha Saenzbr\Date and Time Co-Signed: 09/17/2410:56 EDTECG 12 Leadon 41-33-2855Bsqykm sinus rhythm, right bundle branch block and left anterior fascicular block consistent with bifascicular block, abnormal ECGCPACSSelect Medical [facility]Health Rehabilitation Hospital Work Phone: c Urineon 63-97-0254Jnmsurfb identified Cx Nom (U) Microbiology PROCEDURE: Urine [...] Locations R1: This test was performed at: [facility], [address] [place] [address], [facility] , , AhzjsaBwlddoLicking Memorial HospitalComment on above:Performed By: #### [id number] ####[facility] [address] [place], [place] [address]Consultation Noteon 97-96-6474Gujexpiriuks Note [id number]#1.00TIFLouis Stokes Cleveland VA Medical CenterLab Reportson 93-37-5462Qvf Reports [id number]#1.00[facility] MemorialPatient Educationon 89-90-0953Oiusfdb EducationUrology Urinary Frequency, Adult Urinary frequency means [...] keep your urine pale yellow. ? Take jvnf-ncy-zdawpzx or prescription medicines. ? Eat foods that are high in fiber, such as beans, whole grains, and fresh fruits and vegetables. ? Limit foods that are high in fat and processed sugars, such as fried or sweet foods. General instructions ? Take pdas-tno-szpxhyn and prescription medicines only as told by [...] muscles that help control urination. ? Take efuo-vfp-yrsrlei and prescription medicines only as told by your health care provider. ? Contact a health care provider if your symptoms do not improve or get worse. This information is not intended to replace advice given to you by your health care provider. Make sure you discuss any questions you have with your health care provider. Document Revised: 12/21/2020 Document Reviewed: 12/21/2020 [employer] Patient Education ? 2022 [employer].[facility] Urology Office/Clinic Noteon 80-96-4808Hhvyqnx Office/Clinic NoteChief Complaint 2 month F/U HPI [...] Contact Information PRESTON MAK, Barbara Warner, [address] [place] [address]- Additional Instructions: 3 mos Patient Education Urinary Frequency, Adult Documentation recorded by the scribelbert Saenz accurately reflects the services(s) I performed and decisions made (more content not included)...Normal [facility] HospitalComment on above:Result Comment: Electronically Signed By: CLAIRE JAMES PA-C.br\Date and Time Signed: 07/07/2409:08 EST\.br\Electronically Co-Signed By: Tabitha Saenz.da\Date and Time Co- Signed: 02/06/24 09:50 ESTNUCLEAR STRESS TEST EXERCISE (CARD)on 06-19-2023 Interpreted By: Inge Dickerson and Beal Gina STUDY: MYOCARDIAL PERFUSION STRESS TEST WITH LEXISCAN Performing facility: [facility], [address] [place] [address], [address], [place] [address] [facility] Provider: Sylvester Grayson DO, [facility] PCP: Dr. Agus STORM Supervising provider: Inge Dickerson MD INDICATION: HTN, Bilateral Carotid, Chest Pain HISTORY: Gender: M; Age: 77 y/o ; Height: HT 177.8 cm cm; Weight: WT 89.812 kg kg. CAD; High Cholesterol; Abnormal EKG; RBBB Previous NV; Family HX CAD; Chest Pain; COPD; PAD, CVA, Carotid Disease, CKD Currently smoking. Cardiac catheterization. PTCA 1990s RCA. COMPARISON: No comparison. ACCESSION NUMBER(S): [id number] ORDERING CLINICIAN: CHAIM GRAYSON TECHNIQUE: ONE DAY [...] Inge Dickerson 06/19/2023 11:20 AM Dictation workstation: [id number], Radiologist, - 06/19/2023 Interpreted By: Inge Dickerson, Aracely Alicea STUDY: MYOCARDIAL PERFUSION STRESS TEST WITH LEXISCAN Performing facility: [facility], [address] [place] [address], [address], [place], [place] [address] Provider: Sylvester Grayson DO, [facility] PCP: Dr. Agus STORM Supervising provider: Inge Dickerson MD INDICATION: HTN, Bilateral Carotid, Chest Pain HISTORY: Gender: M; Age: 77 y/o ; Height: HT 177.8 cm cm; Weight: WT 89.812 kg kg. CAD; High Cholesterol; Abnormal EKG; RBBB Previous NV; Family HX CAD; Chest Pain; COPD; PAD, CVA, Carotid Disease, CKD Currently smoking. Cardiac catheterization. PTCA 1990s RCA. COMPARISON: No comparison. ACCESSION NUMBER(S): [id number] ORDERING CLINICIAN: CHAIM GRAYSON TECHNIQUE: ONE DAY [...] Inge Dickerson 06/19/2023 11:20 AM Dictation workstation: [id number] [facility] HospitalNUCLEAR STRESS TEST EXERCISE (CARD)Ordered By: Radiologist Radiology on 38-09-7015KTSL [place] Work Phone: NUCLEAR STRESS TESTon 51-97-9337HQSSJAG STRESS TEST Interpreted By: Inge Dickerson and Beal Gina STUDY: MYOCARDIAL PERFUSION STRESS TEST WITH LEXISCAN Performing facility: [facility], [address] [place] [address], [address], [address] Provider: Sylvester Grayson DO, [facility] PCP: Dr. Agus STORM Supervising provider: Inge Dickerson MD INDICATION: HTN, Bilateral Carotid, Chest Pain HISTORY: Gender: M; Age: 77 y/o ; Height: HT 177.8 cm cm; Weight: WT 89.812 kg kg. CAD; High Cholesterol; Abnormal EKG; RBBB Previous NV; Family HX CAD; Chest Pain; COPD; PAD, CVA, Carotid Disease, CKD Currently smoking. Cardiac catheterization. PTCA 1990s RCA. COMPARISON: No comparison. ACCESSION NUMBER(S): [id number] ORDERING CLINICIAN: CHAIM GRAYSON TECHNIQUE: ONE DAY [...] Inge Dickerson 06/19/2023 11:20 AM Dictation workstation: [id number] [facility] NUCLEAR STRESS TEST EXERCISE (CARD)on 01-51-4221Eirxfejeo Study observation (narrative)[facility] 64-97-0860EOWNWjpqzt Visit (SPSLU) YESENIA BROUSSARD ([id number]) 1945 M Date Time Provider Department 06/12/23 11:00 AM [facility] During your visit today, we recorded the [...] heat Medications: See medication reconciliation list in [facility] MEDICATIONS: Hydrocodone, Gabapentin 2017 back surgery [...] pleasant 77-year-old male who recently moved from [place] to [place]. He reports longstanding history of back and [...] law suit/legal clai (more content not included)...[facility] [address] 27-75-4165Zkyqw rhythm, right bundle branch block, left axis deviation, abnormal ECGCPACSSelect Medical [facility]Health Rehabilitation Hospital Work Phone: Lab Reportson 51-99-5836Jbo Reports [id number]#1.00TIFLouis Stokes Cleveland VA Medical CenterLab Reportson 06-47-0398Uuy Reports [id number]#1.00TIFLouis Stokes Cleveland VA Medical CenterPhysician Orderon 39-04-7296Zchanblxu Order [id number]#1.00TIFFNoAna [facility] Urineon 61-68-1785Lpxcoqjs identified Cx Nom (U)Microbiology PROCEDURE: Urine Culture [R1] SOURCE: U Random BODY SITE: COLLECTED DATE/TIME: 04/21/2023 09:29 EST RECEIVED DATE/TIME: 04/21/2023 17:59 EST START DATE/TIME: 04/21/2023 18:00 EST FREE TEXT SOURCE: BRITNI ENCINAS, CLAIRE [...] Locations R1: This test was performed at: [facility], [address] [place] [address], [address]- , , ByhevqCeogvoLicking Memorial HospitalComment on above:Performed By: #### [id number] ####[facility] [address] [place], [place] [address]Szfennczs 85-92-9691Foyavaz [id number]#1.00[facility] [id number]#1.00[facility] MemorialAmbulatory Visit Summaryon 69-61-2101Cerlzkpahb Visit Summary YESENIA BROUSSARD :1945 Visit Date:04/21/2023 Ambulatory Visit Instructions Your Diagnosis Nocturia UTI symptoms Erectile dysfunction Prostate cancer BPH with urinary obstruction Tests Performed Urnls Dip Stick Auto w/o Microscopy POC 97169 Your Care Team Attending Physician - CLAIRE JAMES PA-C Primary Care Physician - DOTTY MAK, CARREON This Is Your Medications List oxybutynin (oxybutynin 5 mg Tab) Contact prescribing physician if questions or concerns acetaminophen-hydrocodone ([place] 5/325 Tab) amlodipine (amLODIPine 5 mg Tab) [...] CLAIRE JAMES PA-C Where: [facility] Educationon 26-75-7694Dkbmsac EducationUrology Erectile Dysfunction Erectile dysfunction (ED) is [...] these instructions at home: Medicines ? Take qqky-jjb-aeanpxz and prescription medicines only as told by [...] These products include cig (more content not included)...[facility] Office/Clinic Noteon 85-15-4257Jlyythm Office/Clinic NoteChief Complaint 2 month F/U178 HPI [...] rad onc note found on [facility] or [facility] BPH *No BPH meds at this time* [...] 0.05mg qhs. Rx sent to [facility] in [place]. -Check electrolytes in 1 wk after starting [...] 50mg prn. Rx sent to [facility] in [place]. 4. Prostate cancer (C61: Malignant neoplasm of [...] with urinary obstruction (N4 (more content not included)...[facility] HospitalComment on above:Result Comment: Electronically Signed By: CLAIRE JAMES PA-C\.br\Date and Time Signed: 04/21/2309:33 EST\.br\Electronically Co-Signed By: Rosario Byrne\.br\Date and Time Co-Signed: 04/21/23 09:14 ESTCreatinine [Mass/volume] in Serum or PlasmaOrdered By: Jose Martin Mchugh on 43-81-9833Fxwhyjrddn [Mass/Vol]2.03 mg/dL0.70-1.30OhiohealthNo Panel InformationOrdered By: Jose Martin Mchugh on 37-97-7714Umtkntzgl GFR (CKD-EPI)33.144 mL/MinOhiohealth Pharmacy Creatinine Clearance (Chem34.29OhiohealthUrea nitrogen [Mass/volume] in Serum or PlasmaOrdered By: Jose Martin Mchugh on 95-47-4079Sgnh nitrogen [Mass/Vol]35 mg/dL7-[facility] Albumin [Mass/volume] in Serum or Plasma by Bromocresol green (BCG) dye binding methoOrdered By: Theo Thakkar on 14-20-8343Awbhlvm BCG dye [Mass/Vol]4.1 g/dL 3.5-5.7FPremier Health Miami Valley HospitalAutomated erythrocytes count in urine sediment (number/area)Ordered By: Theo Thakkar on 55-07-0459OAQ Auto (Urine sed) [#/Area]5-9 [HPF]0-4FPremier Health Miami Valley HospitalAutomated leukocytes count in urine sediment (number/area)Ordered By: Theo Thakkar on 55-31-4266NVK Auto (Urine sed) [#/Area]Innumerable [HPF]0-4FPremier Health Miami Valley Hospital Bilirubin Test strip Ql (U)Ordered By: Theo Thakkar on 03-45-0811Liaunhcrz Ql (U) NegativeNegativeOhiohealthCalcium [Mass/volume] in Serum or PlasmaOrdered By: Theo Thakkar on 28-08-5202Gbqeqqa [Mass/Vol]9.3 mg/dL 8.6-10.3FPremier Health Miami Valley HospitalCarbon dioxide, total [Moles/volume] in Serum or PlasmaOrdered By: Theo Thakkar on 00-65-5668RO4 [Moles/Vol]26.4 mmol/L 21.0-31.0OhiohealthChloride [Moles/volume] in Serum or PlasmaOrdered By: Theo Thakkar on 07-87-2821Crfxdcpg [Moles/Vol]104 mmol/L98-107 OhiohealthColor Auto (U)Ordered By: Theo Thakkar on 42-09-9897Nyrle (U)YellowYellowOhiohealthCreatinine [Mass/volume] in Serum or PlasmaOrdered By: Theo Thakkar on 81-73-6260Rhgdqamgwa [Mass/Vol]1.83 mg/dL0.70-1.30OhiohealthCreatinine [Mass/volume] in UrineOrdered By: Theo Thakkar on 75-27-4367Cygddbxjqa (U) [Mass/Vol]162.0 mg/dL14.0-26.0OhiohealthGlucose [Mass/volume] in Serum or PlasmaOrdered By: Theo Thakkar on 19-77-3410Qvmrmhq [Mass/Vol]126 mg/sI76-308VydlbgnfuOhiohealthComment on above:ADA recommended reference rangeRandom Glucose Reference Range is dependent on time and content of last meal. Glucose of more than 200 mg/dL in a nonstressed, ambulatory subject supports the diagnosisof Diabetes Mellitus.Ketones Auto test strip (U) [Mass/Vol]Ordered By: Theo Thakkar on 01-56-1719Qsldgtn (U) [Mass/Vol] NegativeNegativeOhiohealthLaboratory - UrinalysisOrdered By: Theo Thakkar on 18-72-2745Wqpyeip casts LM Ql (Urine sed)None seen [LPF]0-8 OhiohealthMagnesium [Mass/volume] in Serum or Plasma Ordered By: Theo Thakkar on 04-77-6004Kkdmzcyah [Mass/Vol]2.2 mg/dL1.9-2.7 OhiohealthNitrite Test strip Ql (U)Ordered By: Theo Thakkar on 81-23-3673Miogeqi Ql (U)NegativeNegativeOhiohealthNo Panel InformationOrdered By: Theo Thakkar on 01-47-0642Fuomwszyg GFR (CKD-EPI)37.537 mL/MinOhiohealthPharmacy Creatinine Clearance (ChemN/AFPremier Health Miami Valley HospitalParathyrin.intact [Mass/volume] in Serum or PlasmaOrdered By: Theo Thakkar on 03-09-2023 Parathyrin.intact [Mass/Vol]128.0 pg/cP28-10SgwgfzjshOhiohealth Phosphate [Mass/volume] in Serum or PlasmaOrdered By: Theo Thakkar on 03-09-2023 Phosphate [Mass/Vol]4.1 mg/dL3.7-7.2FPremier Health Miami Valley HospitalPotassium [Moles/volume] in Serum or PlasmaOrdered By: Theo Thakkar on 60-81-6540Ydyuawrxo [Moles/Vol]4.7 mmol/L3.5-5.1FPremier Health Miami Valley HospitalProtein Auto test strip (U) [Mass/Vol]Ordered By: Theo Thakkar on 62-58-7538Esrnehs (U) [Mass/Vol] 100 mg/dLNegativeOhiohealthProtein [Mass/volume] in Urine Ordered By: Theo Thakkar on 95-82-8633Dwkjohp (U) [Mass/Vol]104 mg/dL0-9[facility] Hospitalerum or plasma anion gap determinationOrdered By: Theo Thakkar on 65-01-1548Agohp gap [Moles/Vol]10.3 mmol/L6.0-15.0[facility] Hospitalodium [Moles/volume] in Serum or PlasmaOrdered By: Theo Thakkar on 97-94-4035Agudpn [Moles/Vol]136 mmol/Y962-489KoavdmfcgOhiohealth Specific gravity Auto test strip (U) [Rel density]Ordered By: Theo Thakkar on 11-02-0673Njjgmhdd gravity (U) [Rel density]1.0181.001-1.030[facility] Hospitalquamous epithelial cells detection in urine sediment by light microscopyOrdered By: Theo Thakkar on 55-48-9893Zhditjakji cells.squamous LM Ql (Urine sed)None seen [HPF]0-2FPremier Health Miami Valley HospitalUrate [Mass/volume] in Serum or PlasmaOrdered By: Theo Thakkar on 16-22-7003Zqlpc [Mass/Vol]7.1 mg/dL4.4-7.6FPremier Health Miami Valley HospitalUrea nitrogen [Mass/volume] in Serum or PlasmaOrdered By: Theo Thakkar on 75-34-5618Xbwt nitrogen [Mass/Vol]30 mg/dL7-25OhiohealthUrine bacteria detection by automated methodOrdered By: Theo Thakkar on 67-27-2808Hksxochu Auto Ql (U)None seenNone SeenOhiohealthUrine clarity by refractometry automatedOrdered By: Theo Thakkar on 16-33-2975Faggsbm Refractometry automated (U)CloudyCleTriHealth Good Samaritan HospitalUrine culture routineOrdered By: Theo Thakkar on 41-37-6009Edojxliu identified Cx Nom (U)Staphylococcus aureusOhiohealthBacteria identified Cx Nom (U)Staphylococcus aureusOhiohealthUrine glucose measurement by automated test strip (mass/volume)Ordered By: Theo Thakkar on 13-17-6986Vgrqlyv Auto test strip (U) [Mass/Vol]Normal mg/dLNormalOhiohealthUrine hemoglobin detection by automated test stripOrdered By: Theo Thakkar on 73-94-5182Xlisqliekw Auto test strip Ql (U)1+Negative OhiohealthUrine leukocyte esterase detection by automated test stripOrdered By: Theo Thakkar on 07-43-7787Ohevvajpd esterase Auto test strip Ql (U)4+NegativeOhiohealthUrine protein/creatinine ratioOrdered By: Theo Thakkar on 55-45-3284Dizpemn/Creatinine (U) [Ratio]642 mg/g{Cre}0-200OhiohealthUrobilinogen Auto test strip (U) [Mass/Vol]Ordered By: Theo Thakkar on 83-58-1969Xvgbnhekhfyf (U) [Mass/Vol]Normal mg/dLNormalOhiohealthVitamin D+Metabolites [Mass/volume] in Serum or PlasmaOrdered By: Theo Thakkar on 85-63-8127Tzdsszh D+Metabolites [Mass/Vol]18.9 ng/rO94-698HukgrupobOhiohealthComment on above: VITAMIN D STATUS 25(OH)VITAMIN D RANGE (ng/mL) Deficient <20 Insufficient 20 to <08Tubsjohqds76 to 100Reference: Grecia MF,Wayne PALMER, John VILLEGAS, et al. Evaluation,treatment, and prevention of vitamin D deficiency; an Endocrine Society clinical practice guideline. JCEM. 2010; 96(7):1911-30.pH Auto test strip (U)Ordered By: Theo Thakkar on 12-46-4782yB (U)5.5 [pH]5.0-9.0OhiohealthAlanine aminotransferase [Enzymatic activity/volume] in Serum or PlasmaOrdered By: Shaikh Dotty on 07-10-6199COY [Catalytic activity/Vol]12 U/L7-52OhiohealthAlbumin [Mass/volume] in Serum or Plasma by Bromocresol green (BCG) dye binding methoOrdered By: Shaikh Dotty on 48-46-4713Ecmehrr BCG dye [Mass/Vol]4.2 g/dL3.5-5.7FPremier Health Miami Valley HospitalAlkaline phosphatase [Enzymatic activity/volume] in Serum or PlasmaOrdered By: Shaikh Dotty on 70-61-8044SNO [Catalytic activity/Vol]66 U/L 34-104OhiohealthAspartate aminotransferase [Enzymatic activity/volume] in Serum or PlasmaOrdered By: Shaikh Dotty on 71-67-4361XXL [Catalytic activity/Vol]13 U/R59-02QczuaicpsOhiohealthBasophils Auto (Bld) [#/Vol]Ordered By: Shaikh Dotty on 85-12-4197Taxqkfxym (Bld) [#/Vol] 0.0 10*3/uL0.0-0.2FPremier Health Miami Valley HospitalBasophils/100 WBC Auto (Bld) Ordered By: Shaikh Dotty on 45-69-7166Jubuuzvdd/100 WBC (Bld)0.5 %.OhiohealthBilirubin.total [Mass/volume] in Serum or PlasmaOrdered By: Shaikh Dotty on 01-68-7184Ffeeebzom [Mass/Vol]0.3 mg/dL0.3-1.0OhiohealthCalcium [Mass/volume] in Serum or PlasmaOrdered By: Shaikh Dotty on 29-00-8081Phqfmqc [Mass/Vol]9.2 mg/dL8.6-10.3FPremier Health Miami Valley HospitalCarbon dioxide, total [Moles/volume] in Serum or PlasmaOrdered By: Shaikh Dotty on 71-18-8819ZY8 [Moles/Vol]26.1 mmol/L21.0-31.0OhiohealthChloride [Moles/volume] in Serum or PlasmaOrdered By: Shaikh Dotty on 96-95-4252Mpqzvorl [Moles/Vol]109 mmol/F74-016AqowzedvvOhiohealthCholesterol [Mass/volume] in Serum or PlasmaOrdered By: Shaikh Dotty on 55-04-8021Syshynunxhg [Mass/Vol]178 mg/nF981-088CjpivywkdOhiohealthComment on above:Chol less than 200 mg/dl low riskChol 201-239 mg/dl borderline riskChol 240 mg/dl and greater high riskCholesterol in LDL Calc [Mass/Vol]Ordered By: Shaikh Dotty on 87-09-5943Aicaigeaddb in LDL [Mass/Vol]115 mg/dL0-100OhiohealthComment on above:LDL ATP III CLASSIFICATIONLDL less than 100 mg/dL OptimalLDL 100-129 mg/dL Near or above qgfghkwJEZ412-477 mg/dL Borderline highLDL 160-189 mg/dL HighLDL greater than 189 mg/dL Very highCholesterol in VLDL Calc [Mass/Vol]Ordered By: Shaikh Dotty on 77-54-8502Pfceuguetni in VLDL [Mass/Vol]32 mg/dLOhiohealthCreatinine [Mass/volume] in Serum or PlasmaOrdered By: Shaikh Dotty on 77-91-4024Xwoklpavdn [Mass/Vol]1.80 mg/dL0.70-1.30OhiohealthEosinophils Auto (Bld) [#/Vol]Ordered By: Shaikh Dotty on 67-55-6254Xwacbjtxesl (Bld) [#/Vol]0.2 10*3/uL0.0-0.45OhiohealthEosinophils/100 WBC Auto (Bld)Ordered By: Shaikh Dotty on 01-09-2023 Eosinophils/100 WBC (Bld)3.9 %.OhiohealthErythrocyte distribution width Auto (RBC) [Ratio]Ordered By: Shaikh Dotty on 01-09-2023 Erythrocyte distribution width (RBC) [Ratio]14.6 %12.0-14.8OhiohealthGlobulin Calc (S) [Mass/Vol]Ordered By: Shaikh Dotty on 14-26-2972Xmxyeanv (S) [Mass/Vol]2.7 g/dLOhiohealth Glucose [Mass/volume] in Serum or PlasmaOrdered By: Shaikh Dotty on 01-09-2023 Glucose [Mass/Vol]114 mg/sZ37-251YirgwynrvOhiohealthComment on above:ADA recommended reference rangeRandom Glucose Reference Range is dependent on time and content of last meal. Glucose of more than 200 mg/dL in a nonstressed, ambulatory subject supports the diagnosisof Diabetes Mellitus. Hematocrit Auto (Bld) [Volume fraction]Ordered By: Shaikh Dotty on 01-09-2023 Hematocrit (Bld) [Volume fraction]40.3 %38.8-50.0OhiohealthHemoglobin [Mass/volume] in BloodOrdered By: Shaikh Dotty on 01-09-2023 Hemoglobin (Bld) [Mass/Vol]13.3 g/dL13.0-17.0[facility] Leukocytes [#/volume] corrected for nucleated erythrocytes in Blood by Automated counOrdered By: Shaikh Dotty on 48-38-8695ZHX corrected for nucl RBC Auto (Bld) [#/Vol]5.6 10*3/uL4.1-10.5FPremier Health Miami Valley HospitalLymphocytes Auto (Bld) [#/Vol]Ordered By: Shaikh Dotty on 22-72-2472Xyemjofyber (Bld) [#/Vol]1.1 10*3/uL1.00-4.8OhiohealthLymphocytes/100 WBC Auto (Bld)Ordered By: Shaikh Dotty on 49-94-1767Dmoyogfdhkn/100 WBC (Bld)19.3 % .OhiohealthMCH Auto (RBC) [Entitic mass]Ordered By: Shaikh Dotty on 17-72-3723MOR (RBC) [Entitic mass]30.0 pg27.5-35.2FPremier Health Miami Valley HospitalMCHC Auto (RBC) [Mass/Vol]Ordered By: Shaikh Dotty on 33-85-2327UNRD (RBC) [Mass/Vol]32.9 g/dL32.5-35.6FPremier Health Miami Valley HospitalMCV Auto (RBC) [Entitic vol]Ordered By: Shaikh Dotty on 72-53-6217HJY (RBC) [Entitic vol]91.2 fL83.5-101OhiohealthMonocytes Auto (Bld) [#/Vol]Ordered By: Shaikh Dotty on 27-29-2243Sihowlpfg (Bld) [#/Vol] 0.5 10*3/uL0.0-0.8OhiohealthMonocytes/100 WBC Auto (Bld) Ordered By: Shaikh Dotty on 34-22-7933Dxshfzyhm/100 WBC (Bld)8.7 %.OhiohealthNeutrophils Auto (Bld) [#/Vol]Ordered By: Shaikh Dotty on 08-38-3999Kbnapdmxvhf (Bld) [#/Vol]3.8 10*3/uL1.8-7.7FPremier Health Miami Valley HospitalNeutrophils/100 WBC Auto (Bld)Ordered By: Shaikh Dotty on 94-59-7685Uiqunovvbis/100 WBC (Bld)67.6 %.OhiohealthNo Panel InformationOrdered By: Shaikh Dotty on 35-51-3515Cbuygcduf GFR (CKD-EPI) 38.289 mL/MinOhiohealthPharmacy Creatinine Clearance (ChemN/[facility] North Health CenterNucleated erythrocytes [Presence] in Blood by Automated countOrdered By: Shaikh Dotty on 01-27-4769Tqrdymsid RBC Auto Ql (Bld)0.1 /100{WBC}0-0.5FPremier Health Miami Valley HospitalPlatelet mean volume Auto (Bld) [Entitic vol]Ordered By: Shaikh Dotty on 01-53-8004Ykvidtva mean volume (Bld) [Entitic vol]9.7 fL6.6-10.1FPremier Health Miami Valley Hospital Platelets Auto (Bld) [#/Vol]Ordered By: Shaikh Dotty on 54-08-3088Debbgmqcu (Bld) [#/Vol]173 10*3/bP757-050HdovvtccwOhiohealthPotassium [Moles/volume] in Serum or PlasmaOrdered By: Shaikh Dotty on 01-09-2023 Potassium [Moles/Vol]4.9 mmol/L3.5-5.1FPremier Health Miami Valley HospitalProtein [Mass/volume] in Serum or PlasmaOrdered By: Shaikh Dotty on 63-07-8727Xutxvgi [Mass/Vol]6.9 g/dL6.4-8.9OhiohealthRBC Auto (Bld) [#/Vol] Ordered By: Shaikh Dotty on 09-22-5622YCK (Bld) [#/Vol]4.42 10*6/uL3.90-5.60 [facility] Hospitalerum or plasma albumin/globulin mass ratio Ordered By: Shaikh Dotty on 40-13-9618Agnzybi/Globulin [Mass ratio]1.6 {ratio} [facility] Hospitalerum or plasma anion gap determinationOrdered By: Shaikh Dotty on 41-48-4563Vyzpe gap [Moles/Vol]9.8 mmol/L6.0-15.0[facility] Hospitalerum or plasma high density lipoprotein (HDL) cholesterol measurementOrdered By: Shaikh Dotty on 18-18-5310Qojpmfxuuhd in HDL [Mass/Vol]31 mg/mQ91-22AmsbdcrigOhiohealthComment on above:HDL CHOL ATP-III CLASSIFICATION Cardiovascular RiskHDL > or equal to 60 mg/dL LOWHDL < 40 mg/dL HIGHSerum or plasma total cholesterol/high density lipoprotein (HDL) cholesterol mass ratOrdered By: Shaikh Dotty on 01-09-2023 Cholesterol.total/Cholesterol in HDL [Mass ratio]5.7 {ratio}<5.0[facility] Hospitalodium [Moles/volume] in Serum or PlasmaOrdered By: Shaikh Dotty on 80-97-0417Gssyqm [Moles/Vol]140 mmol/W668-799PjfpvjxpgOhiohealthTriglyceride [Mass/volume] in Serum or PlasmaOrdered By: Shaikh Dotty on 40-05-2691Pxfsaamriunh [Mass/Vol]162 mg/dL0-149OhiohealthComment on above:TRIG ATP III CLASSIFICATIONTRIG less than 150 mg/dL NormalTRIG 150-199 mg/dL Borderline highTRIG 200-500 mg/dL High TRIG greater than 500 mg/dL Very highStandard traceable to the Center for Disease Co nrtrol and Prevention (CDC) test method.Urea nitrogen [Mass/volume] in Serum or PlasmaOrdered By: Shaikh Dotty on 62-69-2317Axsm nitrogen [Mass/Vol]34 mg/dL 7-25OhiohealthWBC Auto (Bld) [#/Vol]Ordered By: Shaikh Dotty on 36-36-5692UZF (Bld) [#/Vol]5.6 10*3/uL4.1-10.5FPremier Health Miami Valley HospitalCNPNon 81-44-0274WQMYEqdpsjago (IRRFV) HELENAYESENIA ([id number]) 1945 M Date Time Provider Department 01/05/23 [...] will need to be scheduled at [facility] [place]. Allergies As of Date: 01/05/2023 (No Known Allergies) Date Reviewed: 11/19/2022 Reviewed by: Elizabeth Freire APRN.[employer] - Fully Assessed Reason for Visit: Patient Question [0997] Appointment [186] Prescriptions as of 01/05/2023 - [...] 11/19/2022 Encounter Status:Closed by EVELYN CHAMBERLAIN on 01/05/23NormalFanorth adams regional hospital HospitalCULTURE URINEon 58-40-3357XCSTUKI URINECulture Observations: LIGHT GROWTH OF MIXED SKIN DANIELLE. NO POTENTIAL PATHOGENS SEEN.NormalThe [facility]al Medical CenterComment on above:Performed By: #### URCX #### [facility] [address] [address] [address] Leighann Garcia Panel InformationOrdered By: Genoveva Nazario on 99-66-4704Fzxwztzc Specific Antigen Total2.810 ng/mL0.000-4.000[facility] Basophils Auto (Bld) [#/Vol]Ordered By: Zeinab Justice on 12-20-0898Rfkhhyqfn (Bld) [#/Vol]0.0 10*3/uL0.0-0.2FPremier Health Miami Valley HospitalBasophils/100 WBC Auto (Bld)Ordered By: Zeinab Justice on 58-76-2153Sfqylgrhs/100 WBC (Bld)0.5 % .OhiohealthBody fluid albumin measurement (mass/volume) Ordered By: Zeinab Justice on 18-29-8963Ckdaemy (Body fld) [Mass/Vol]3.6 g/dL 3.2-5.5FPremier Health Miami Valley HospitalCreatinine and Glomerular filtration rate.predicted panel (S/P/Bld)Ordered By: Zeinab Justice on 82-48-0551Rmgngfgsfc [Mass/Vol]1.65 mg/dL0.64-1.27OhiohealthEosinophils Auto (Bld) [#/Vol]Ordered By: Zeinab Justice on 79-13-0072Vieyycxltsq (Bld) [#/Vol]0.2 10*3/uL0.0-0.45OhiohealthEosinophils/100 WBC Auto (Bld) Ordered By: Zeinab Justice on 20-25-7405Mqapdyiwqxp/100 WBC (Bld)3.4 %.OhiohealthErythrocyte distribution width Auto (RBC) [Ratio]Ordered By: Zeinab Justice on 55-27-4820Gturhfezajg distribution width (RBC) [Ratio]15.0 % 12.0-14.8OhiohealthEstimated glomerular filtration rate (GFR) non- AmericanOrdered By: Zeinab Justice on 37-96-0971MLY/1.73 sq M.predicted among non-blacks MDRD (S/P/Bld) [Vol rate/Area]41 mL/MinOhiohealthGlobulin Calc (S) [Mass/Vol]Ordered By: Zeinab Justice on 67-22-2746Mstthggb (S) [Mass/Vol]2.6 g/dLOhiohealth Hematocrit Auto (Bld) [Volume fraction]Ordered By: Zeinab Justice on 04-23-2022 Hematocrit (Bld) [Volume fraction]38.0 %38.8-50.0OhiohealthHemoglobin [Mass/volume] in BloodOrdered By: Zeinab Justice on 04-23-2022 Hemoglobin (Bld) [Mass/Vol]12.3 g/dL13.0-17.0[facility] Laboratory - Hematology and Cell countsOrdered By: Zeinab Justice on 04-23-2022 Nucleated RBC/100 WBC (Bld) [Ratio]0.2 %0-0.5FPremier Health Miami Valley Hospital Leukocytes [#/volume] in Blood by Automated countOrdered By: Zeinab Justice on 39-59-3378TMT (Bld) [#/Vol]5.3 10*3/uL4.5-11.0[facility] Lymphocytes Auto (Bld) [#/Vol]Ordered By: Zeinab Justice on 64-57-6354Dzbtvtcsrzo (Bld) [#/Vol]0.9 10*3/uL1.00-4.8OhiohealthLymphocytes/100 WBC Auto (Bld)Ordered By: Zeinab Justice on 42-98-7419Hwddrdxjhwl/100 WBC (Bld) 17.1 %.[facility]ullH Auto (RBC) [Entitic mass]Ordered By: Zeinab Justice on 49-77-2168AMQ (RBC) [Entitic mass]30.6 pg27.5-35.2FPremier Health Miami Valley HospitalMCHC Auto (RBC) [Mass/Vol]Ordered By: Zeinab Justice on 65-61-3159UGRX (RBC) [Mass/Vol]32.4 g/dL32.5-35.6FPremier Health Miami Valley HospitalMCV Auto (RBC) [Entitic vol]Ordered By: Zeinab Justice on 04-50-9329ZSX (RBC) [Entitic vol]94.4 fL83.5-101OhiohealthMonocytes Auto (Bld) [#/Vol]Ordered By: Zeinab Justice on 13-57-2073Ytbtblcex (Bld) [#/Vol] 0.6 10*3/uL0.0-0.8OhiohealthMonocytes/100 WBC Auto (Bld) Ordered By: Zeinab Justice on 44-33-5025Aqmlysvil/100 WBC (Bld)10.5 %.OhiohealthNeutrophils Auto (Bld) [#/Vol]Ordered By: Zeinab Justice on 16-08-9366Vstotqjcjwi (Bld) [#/Vol]3.6 10*3/uL1.8-7.7FPremier Health Miami Valley HospitalNeutrophils/100 WBC Auto (Bld)Ordered By: Zeinab Justice on 04-23-2022 Neutrophils/100 WBC (Bld)68.5 %.OhiohealthNo Panel InformationOrdered By: Zeinab Justice on 55-85-8792Ubmoltpbt GFR ()49 mL/MinOhiohealthComment on above:GFR estimated reference range: According to KDOQI guidelines, <60 ml/min/1.73m2 is sufficient todiagnose a patient with chronic kidney disease.Pharmacy Creatinine Clearance (ChemN/AFPremier Health Miami Valley HospitalPlatelet mean volume Auto (Bld) [Entitic vol]Ordered By: Zeinab Justice on 88-50-6585Npxcsyfv mean volume (Bld) [Entitic vol]9.7 fL6.6-10.1FPremier Health Miami Valley HospitalPlatelets Auto (Bld) [#/Vol]Ordered By: Zeinab Justice on 31-81-1070Tlmyxqodr (Bld) [#/Vol]170 10*3/bC530-634JohzmgjewOhiohealthProtein [Mass/volume] in Serum or PlasmaOrdered By: Zeinab Justice on 99-29-4377Vljhnsh [Mass/Vol]6.2 g/dL6.1-7.9 OhiohealthRBC Auto (Bld) [#/Vol]Ordered By: Zeinab Justice on 32-60-1871XWV (d) [#/Vol]4.02 10*6/uL3.90-5.60[facility] Hospitalerum or plasma alanine aminotransferase measurement without P-5'-P (enzymatic activiOrdered By: Zeinab Justice on 05-15-6703IID No additional P-5'-P [Catalytic activity/Vol]19 U/G19-96UywdhyjpbGlenbeigh Hospitalerum or plasma albumin/globulin mass ratioOrdered By: Zeinab Justice on 04-23-2022 Albumin/Globulin [Mass ratio]1.4 {ratio}[facility] Hospitalerum or plasma alkaline phosphatase measurement (enzymatic activity/volume)Ordered By: Zeinab Justice on 30-27-2057JEY [Catalytic activity/Vol]51 U/T77-71HvakdhmxrGlenbeigh Hospitalerum or plasma anion gap determinationOrdered By: Zeinab Justice on 58-22-9308Nlhgs gap [Moles/Vol]13.2 mmol/L6.0-15.0[facility] Hospitalerum or plasma aspartate aminotransferase measurement (enzymatic activity/volume)Ordered By: Zeinab Justice on 58-57-6056UPM [Catalytic activity/Vol]18 U/X23-87AnsebuayqGlenbeigh Hospitalerum or plasma calcium measurement (mass/volume)Ordered By: Zeinab Justice on 49-66-2366Znkmocp [Mass/Vol]8.8 mg/dL8.2-10.2FOhioHealth Grove City Methodist Hospitalerum or plasma chloride measurement (moles/volume)Ordered By: Zeinab Justice on 04-23-2022 Chloride [Moles/Vol]104 mmol/P33-653HxzoydatsGlenbeigh Hospitalerum or plasma glucose measurement (mass/volume)Ordered By: Zeinab Justice on 04-23-2022 Glucose [Mass/Vol]98 mg/jB87-139MfjrumfiuOhiohealthComment on above:ADA recommended reference rangeRandom Glucose Reference Range is dependent on time and content of last meal. Glucose of more than 200 mg/dL in a nonstressed, ambulatory subject supports the diagnosisof Diabetes Mellitus.Serum or plasma potassium measurement (moles/volume)Ordered By: Zeinab Justice on [id number] [Moles/Vol]4.6 mmol/L3.5-5.1FOhioHealth Grove City Methodist Hospitalerum or plasma sodium measurement (moles/volume)Ordered By: Zeinab Justice on [id number] [Moles/Vol]136 mmol/G644-689RqfjmlptyGlenbeigh Hospitalerum or plasma total bilirubin measurement (mass/volume)Ordered By: Zeinab Justice on 07-54-0822Uwaxwgddu [Mass/Vol]0.5 mg/dL0.3-1.2FOhioHealth Grove City Methodist Hospitalerum or plasma total carbon dioxide measurement (moles/volume) Ordered By: Zeniab Justice on [id number] [Moles/Vol]23.4 mmol/L22.0-30.0 [facility] Hospitalerum or plasma urea nitrogen measurement (mass/volume)Ordered By: Zeinab Justice on 40-59-8428Woeh nitrogen [Mass/Vol]22 mg/dL9-OhiohealthCBC W Auto Differential panel (Bld)on 62-34-3341Yfryjvooq (Bld) [#/Vol]<0.11 k/uLPremier Health Miami Valley Hospital SouthBasophils/100 WBC (Bld)0.3 %[facility] SouthDifferential cell count method Nom (Bld)AutoCleveland ClinicEosinophils (Bld) [#/Vol]0.25 10*3/uL<0.46 k/uLPremier Health Miami [facility] South Eosinophils/100 WBC (Bld)3.2 %[facility] SouthErythrocyte distribution width (RBC) [Ratio]14.3 %11.5 - 15.0 %[facility] SouthHematocrit (Bld) [Volume fraction]39.3 %39.0 - 51.0 %[facility] SouthHemoglobin (Bld) [Mass/Vol]12.8 g/dL Low13.0 - 17.0 g/dLPremier Health Miami Valley Hospital SouthImmature granulocytes (Bld) [#/Vol]0.03 10*3/uL<0.10 k/uLPremier Health Miami Valley Hospital SouthImmature granulocytes/100 WBC (Bld)0.4 % [facility] SouthLymphocytes (Bld) [#/Vol]1.53 10*3/uL1.00 - 4.00 k/uLPremier Health Miami Valley Hospital SouthLymphocytes/100 WBC (Bld)19.8 %[facility] HospitalH (RBC) [Entitic mass] 31.4 pg26.0 - 34.0 pgClevelCentervilleMCHC (RBC) [Mass/Vol]32.6 g/dL30.5 - 36.0 g/dLMcCullough-Hyde Memorial HospitalV (RBC) [Entitic vol]96.6 fL80.0 - 100.0 fLCleveland ClinicMonocytes (Bld) [#/Vol]0.67 10*3/uL<0.87 k/uLNaples ClinicMonocytes/100 WBC (Bld)8.7 %[facility] ClinicNeutrophils (Bld) [#/Vol]5.21 10*3/uL1.45 - 7.50 k/uLNaples ClinicNeutrophils/100 WBC (Bld)67.6 %[facility] SouthNucleated RBC (Bld) [#/Vol]<0.01 k/uLPremier Health Miami Valley Hospital SouthNucleated RBC/100 WBC (Bld) [Ratio]0.0 /100 WBCPremier Health Miami Valley Hospital SouthPlatelet mean volume (Bld) [Entitic vol]11.2 fL9.0 - 12.7 fLClevelblowing rock hospital ClinicPlatelets (Bld) [#/Vol]183 10*3/uL150 - 400 k/uLPremier Health Miami Valley Hospital SouthRBC (Bld) [#/Vol]4.07 10*6/uLLow4.20 - 6.00 m/[facility] HospitalWBC (Bld) [#/Vol]7.71 10*3/uL3.70 - 11.00 k/uLNaples ClinicCHEMISTRYOrdered By: SYSTEM SYSTEM on 20-02-9935Zwrnmwa [Mass/Vol]4.0 g/dLNormal3.3 - 5.0 gm/dLFTMC Remisol Albumin/Globulin [Mass ratio]1.2 {ratio}Normal1.1 - 2.2[facility] RemisolALP [Catalytic activity/Vol]52 [iU]/dTtmngj26 - 98 Int._Unit/LFTMC RemisolALT No additional P-5'-P [Catalytic activity/Vol]15 [iU]/dNormal6 - 46 Int._Unit/LFTMC RemisolAnion gap [Moles/Vol]10 mmol/LNormal6 - 16 mEq/LFTMC RemisolAST [Catalytic activity/Vol]17 [iU]/dNormal5 - 43 Int._Unit/LFTMC RemisolBilirubin [Mass/Vol]0.3 mg/dLNormal0.0 - 1.1 mg/dLFTMC RemisolCalcium [Mass/Vol]9.1 mg/dL Normal8.9 - 11.1 mg/dLFTMC RemisolChloride [Moles/Vol]107 mmol/BFvpcgv005 - 111 mmol/LFTMC RemisolCO2 [Moles/Vol]25 mmol/AGzcsly39 - 31 mmol/LFTMC Remisol Creatinine [Mass/Vol]1.8 mg/dLHigh0.5 - 1.3 mg/dLFTMC RemisolGFR/1.73 sq M.predicted among blacks MDRD (S/P/Bld) [Vol rate/Area]45 mL/min/1.73 m2Low >=59mL/min/1.73 m2FT Chem SGFR/1.73 sq M.predicted among non-blacks MDRD (S/P/Bld) [Vol rate/Area]37 mL/min/1.73 m2Low>=59mL/min/1.73 m2FT Chem S Globulin (S) [Mass/Vol]3.3 g/dLNormal1.4 - 4.0 gm/dLFTMC RemisolGlucose [Mass/Vol]95 mg/iDErvhxr37 - 199 mg/dLFTMC RemisolPotassium [Moles/Vol]4.5 mmol/LNormal3.5 - 5.3 mmol/LFTMC RemisolProtein [Mass/Vol]7.3 g/dLNormal6.0 - 7.8 gm/dLFTMC RemisolSodium [Moles/Vol]137 mmol/TGgzkkl898 - 145 mmol/LFTMC RemisolUrea nitrogen [Mass/Vol]27 mg/dLHigh5 - 21 mg/dLFTMC RemisolUrea nitrogen/Creatinine [Mass ratio]15 mg/nnMfvate00 - 20FT[facility] RemisolHEMATOLOGY Ordered By: SYSTEM SYSTEM on 21-54-2216Cdznzmztn/100 WBC (Bld)0.9 %Normal0.0 - 2.0 %[facility] HemeAutoSSBasophils/Leukocytes Auto (Bld) [Pure # fraction]0.1 E9/L Normal0.0 - 0.2 E9/LFTMC HemeAutoSSEosinophils/100 WBC (Bld)2.9 %Normal0.0 - 8.0 %[facility] HemeAutoSSEosinophils/Leukocytes Auto (Bld) [Pure # fraction]0.2 E9/L Normal0.0 - 0.5 E9/LFTMC HemeAutoSSLymphocytes/100 WBC (Bld)23.0 %Ucvzub19.0 - 50.0 %[facility] HemeAutoSSLymphocytes/Leukocytes Auto (Bld) [Pure # fraction]1.6 E9/L Normal1.0 - 4.0 E9/LFTMC HemeAutoSSMonocytes/100 WBC (Bld)9.4 %Normal4.0 - 14.0 %[facility] HemeAutoSSMonocytes/Leukocytes Auto (Bld) [Pure # fraction]0.6 E9/LNormal 0.2 - 1.0 E9/LFTMC HemeAutoSSNeutrophils/100 WBC (Bld)63.8 %Thjeyf56.0 - 75.0 % [facility] HemeAutoSSNeutrophils/Leukocytes Auto (Bld) [Pure # fraction]4.4 E9/LNormal 2.0 - 7.5 E9/LFTMC HemeAutoSSHEMATOLOGYOrdered By: Tyshawn Winchester on 99-20-6390Hptjkchyuoz distribution width (RBC) [Ratio]15.0 %High10.9 - 14.2 % [facility] HemeAutoSSHematocrit (Bld) [Volume fraction]40.2 %Fawleo36.7 - 49.0 %[facility] HemeAutoSSHemoglobin (Bld) [Mass/Vol]13.2 g/dLLow13.5 - 17.5 gm/dLFTMC HemeAutoSSMCH (RBC) [Entitic mass]30.2 hbZtwexh74.0 - 34.0 pgFTMC HemeAutoSSMCHC (RBC) [Mass/Vol]32.9 g/uMOtfbnm58.4 - 36.0 gm/dLFTMC HemeAutoSSMCV (RBC) [Entitic vol]91.6 sZGavgbh71.0 - 100.0 fLFTMC HemeAutoSSPlatelet mean volume (Bld) [Entitic vol]9.8 fLNormal6.4 - 10.8 fLFTMC HemeAutoSSPlatelets (Bld) [#/Vol]197.0 E9/WOhhlid037.0 - 500.0 E9/LFTMC HemeAutoSSRBC (Bld) [#/Vol]4.4 E12/LNormal4.3 - 5.9 E12/LFTMC HemeAutoSSWBC corrected for nucl RBC Auto (Bld) [#/Vol]6.9 E9/LNormal4.0 - 11.0 E9/LFTMC HemeAutoSSCovid-19 PCR (CVDTB)on 93-70-7529DPVG-CoV-2 (COVID-19) RNA WENCESLAO+probe Ql (Unsp spec)Not detectedNormal NOT DETECTEDThe [facility] CenterComment on above:Result Comment: This test is not yet approved or cleared by the [place] FDA. When there are no FDA- approved or cleared tests available, and other criteria are met, FDA can make tests available under an emergency access mechanism called an Emergency Use Authorization (EUA). The EUA for this test is supported by the [place] of Health and Human Service's (HHS's) declaration [...] consistent with SARS-CoV-2.Performed By: #### CVDTBH #### [facility] [address] [address] [address] Leighann SantanaPTH INTACTon 42-60-8244EFL, Gyfmkn51 pg/aKJbqqfd11-31Hfa [facility] CenterComment on above:Performed By: #### PTHINT #### [facility] [address] [address] [address] Leighann Gutiérrez D 25-OH LABCORPon 64-35-6829Pwfzjua D, 25-Rmhohqt08.2 ng/mL Critically low30.0-100.0The [facility] Medical CenterComment on above:Result Comment: Vitamin D deficiency has been defined by the [place] of Medicine and an Endocrine Society practice guideline as a level of serum 25-OH vitamin D less than 20 ng/mL (1,2). The Endocrine Society went on to further define vitamin D insufficiency as a level between 21 and 29 ng/mL (2). 1. IOM ([place] of Medicine). 2010. Dietary reference intakes for calcium and D. [place]: The National Academies Press. 2. Grecia MF, Wayne [place], John VILLEGAS, et al. Evaluation, treatment, and prevention of vitamin D deficiency: an Endocrine Society clinical practice guideline. JCEM. 2010; 96(7):1911-30.Performed By: #### VITADLC #### [facility] [address] [place] [address] Dr. Leighann SantanaHEMOGRAM AND PLATELon 83-79-1051Pxdxnxglwd (Bld) [Volume fraction]39.3 %Critically low42.0-54.0The [facility] CenterComment on above: Performed By: #### HH ####[facility] [address] [id number]. Leighann SantanaHemoglobin (Bld) [Mass/Vol]12.5 g/dL Critically low14.0-18.0The [facility] CenterComment on above:Performed By: #### HH ####[facility] [address] [address]Dr. Leighann SantanaARNOT [facility] (RBC) [Entitic mass]30.2 awNjgnfz67.9-34.0The [facility] Comment on above:Performed By: #### HH ####[facility] [address] [address]Dr. Leighann SantanaHC (RBC) [Mass/Vol]31.8 g/dL Crhtch40.9-35.2The [facility] CenterComment on above:Performed By: #### HH ####[facility] [address] [address]Dr. Nathaniel SantanaV (RBC) [Entitic vol]94.9 fLCritically high80.0-94.0The [facility] CenterComment on above:Performed By: #### HH ####[facility] [address] [address]Dr. Leighann SantanaPLT191 103/ul Lwjmpd878-991Efe [facility] CenterComment on above:Performed By: #### HH ####[facility] [address] [address]Dr. Nathaniel SantanaRBC4.14 106/ulCritically low4.70-6.10The [facility] CenterComment on above:Performed By: #### HH ####[facility] [address] [address]Dr. Leighann SantanaWBC7.3 103/ulNormal4.0-11.0The [facility] CenterComment on above:Performed By: #### HH ####[facility] [address] [address]Dr. Leighann SantanaMAGNESIUMon 81-61-7503Bxtajvrse [Mass/Vol]1.9 mg/dLNormal1.8-2.4The [facility] CenterComment on above:Performed By: #### RENAL, MG, URIC ####[facility] [address] [address]Dr. Leighann Grafton State HospitalRENAL FUNCTION PANELon 45-84-5179Nwibcoi [Mass/Vol]3.4 g/dLNormal3.4-5.0The [facility] Comment on above:Performed By: #### RENAL, MG, URIC ####[facility] [address] [address]Dr. Yilan ChangCalcium [Mass/Vol]8.7 mg/dLNormal8.5-10.1The [facility] CenterComment on above:Performed By: #### RENAL, MG, URIC ####[facility] [address] [place], [place] [address]Dr. Yilan ChangChloride [Moles/Vol]105 mmol/LNormal 98-107The [facility] CenterComment on above:Performed By: #### RENAL, MG, URIC ####[facility] [address] [place], [place] [address]Dr. Yilan ChangCO2 [Moles/Vol]26.5 mmol/RAdjibo97.0-32.0The [facility] CenterComment on above:Performed By: #### RENAL, MG, URIC ####[facility] [address] [place], [place] [address]Dr. Yilan ChangCreatinine [Mass/Vol]1.77 mg/dLCritically high0.70-1.30The [facility] Hospitalment on above:Performed By: #### RENAL, MG, URIC ####[facility] [address] [place], [place] [address]Dr. Yilan ChangEGFR-AF BWNTIUGU26 mL/min/1.80a9Uwsjtxtbey low>=60The [facility] Hospitalment on above:Performed By: #### RENAL, MG, URIC ####[facility] [address] [place], [place] [address]Dr. Yilan ChangEGFR-NON AF JCMKVUXL68 mL/min/1.73m2 Critically low>=60The [facility] Hospitalment on above:Performed By: #### RENAL, MG, URIC ####[facility] [address] [place], [place] [address]Dr. Yilan ChangGlucose [Mass/Vol]136 mg/dLCritically zlsa22-297Elf [facility] CenterComment on above:Performed By: #### RENAL, MG, URIC ####[facility] [address] [address]Dr. Ghadalan ChangPhosphate [Mass/Vol]3.6 mg/dLNormal2.6-4.7The [facility] Comment on above:Performed By: #### RENAL, MG, URIC ####[facility] [address] [address]Dr. Yilan ChangPotassium [Moles/Vol]4.5 mmol/LNormal3.5-5.1The [facility] CenterComment on above: Performed By: #### RENAL, MG, URIC ####[facility] [address] [address]Dr. Yilan ChangSodium [Moles/Vol]140 mmol/LNormal 136-145The [facility] CenterComment on above:Performed By: #### RENAL, MG, URIC ####[facility] [address] [address]Dr. Leighann ChangUrea nitrogen [Mass/Vol]25.0 mg/dLCritically high7.0-18.0The [facility] CenterComment on above:Performed By: #### RENAL, MG, URIC ####[facility] [address] [address]Dr. Leighann SantanaUA RANDOM W/MICROSCOPICon 24-35-2953LGLRTYTWDQXYFHkaxtadlUGQS SEENOhio State University Wexner Medical CenterComment on above:Performed By: #### UAMIC #### [facility] [address] [place] [address] Dr. Leighann Curtisirubin Ql (U)NegativeNormalNEGATIVEOhio State University Wexner Medical Center Comment on above:Performed By: #### UAMIC #### [facility] [address] [address] [address] Leighann SantanaCASTNONElbert SEENNormalNONE SEENOhio State University Wexner Medical CenterComment on above:Performed By: #### UAMIC #### [facility] [address] [address] [address] Leighann SantanaClarity (U)CLEARNormalCLEARThe [facility] CenterComment on above: Performed By: #### UAMIC #### [facility] [address] [address] [address] Leighann Meza (U)LT. YELLOWNormalYELLOWOhio State University Wexner Medical CenterComcorewell health ludington hospital on above:Performed By: #### UAMIC #### [facility] [address] [address] [address] Leighann SantanaCrystals LM Nom (Urine sed)NONE SEENNormalNONE SEENOhio State University Wexner Medical CenterComment on above:Performed By: #### UAMIC #### [facility] [address] [place] [address] Dr. Lawton ChangEpithelial cells LM Ql (Urine sed)FEWAbnormalNONE SEEN /RAREOhio State University Wexner Medical CenterComcorewell health ludington hospital on above:Performed By: #### UAMIC #### [facility] [address] [place] [address] Dr. Leighann SantanaGlucose Ql (U)NegativeNormalNEGATIVEOhio State University Wexner Medical CenterComcorewell health ludington hospital on above:Performed By: #### UAMIC #### [facility] [address] [place] [address] Dr. Leighann SantanaHemoglobin Ql (U)TRACE-INTACTAbnormalNEGATIVEOhio State University Wexner Medical CenterComcorewell health ludington hospital on above:Performed By: #### UAMIC #### [facility] [address] [place] [address] Dr. Leighann SantanaKetones Ql (U)NegativeNormalNEGATIVEOhio State University Wexner Medical CenterComcorewell health ludington hospital on above:Performed By: #### UAMIC #### [facility] [address] [place] [address] Dr. Leighann SantanaLEUKOCYTESMODERATEAbnormalNEGATIVEOhio State University Wexner Medical CenterComcorewell health ludington hospital on above:Performed By: #### UAMIC #### [facility] [address] [place] [address] Dr. Leighann SantanaMUCOUSNONE SEENNormalNONE SEENOhio State University Wexner Medical CenterComcorewell health ludington hospital on above:Performed By: #### UAMIC #### [facility] [address] [place] [address] Dr. Leighann SantanaNitrite Ql (U)PositiveAbnormalNEGATIVEOhio State University [facility] Medical Center Comment on above:Performed By: #### UAMIC #### [facility] [address] [address] [address] Leighann SantanapH (U)5.5 [pH]Normal5-9The [facility] CenterComment on above: Performed By: #### UAMIC #### [facility] [address] [address] [address] Leighann SantanaJwnolFKH6-9Xpsacwds2-1Rxo [facility] CenterComment on above:Performed By: #### UAMIC #### [facility] [address] [address] [address] Leighann SantanaSPEC GRAVITY>=1.675Pmkckapj4.005-<=1.025The [facility] Comment on above:Performed By: #### UAMIC #### [facility] [address] [place] [address] Dr. Leighann SantanaUA HACNKAP43 mg/dlAbnormalNEGATIVE/ TRACEThe [facility] Comment on above:Performed By: #### UAMIC #### [facility] [address] [address] [address] Leighann Mallorybilino Qn (U)0.2 {Jing'U}/dLNormal0.2 - 1.0The [facility] CenterComment on above:Performed By: #### UAMIC #### [facility] [address] [address] [address] Leighann SantanaKutecPUQ85-58DcovlqfpVVXE SEENThe [facility] CenterComment on above: Performed By: #### UAMIC #### [facility] [address] [address] [address] Leighann SantanaURIC ACID SERUMon 06-70-5193Qycpd [Mass/Vol]6.5 mg/dLNormal 3.5-7.2The [facility] CenterComment on above:Performed By: #### RENAL, MG, URIC ####[facility] [address] [address]Dr. Leighann Troy T PROTEIN CREAT RATIOon 03-43-4702Cykcmdt (U) [Mass/Vol]73.2 mg/dLCritically high<=12.0Ohio [facility] Medical CenterComment on above:Performed By: #### URTPCR #### [facility] [address] [address] [address] Leighann Guzman PROT CREAT RAT0.42NormalThe [facility] CenterComment on above: Performed By: #### URTPCR #### [facility] [address] [address] [address] Leighann Troy TENGZ326.21 mg/sXTzgfys05.00-300.00[facility] Comment on above:Performed By: #### URTPCR #### [facility] [address] [address] [address] Leighann SantanaSURGICAL PATH REPORTon 23-07-6324GPOIVEJU PATH REPORTSCleveland Clinic [facility] Department of Pathology [address] [place] [address] Name: YESENIA BROUSSARD : 1945 Located Within [facility] [phone] Number: Gender: Male Location: [facility] Admit 75 years Attending BARBARA JOHNSTON Age: Provider: Ordering BARBARA JOHNSTON Provider: Consulting: Surgical Pathology Report ACCESSION: COLLECTED DATE/TIME: RECEIVED DATE/TIME: PATHOLOGIST: [id number] 06/06/2021 16:30 EST 06/07/2021 11:15 EST QUINN MAK, [facility] Final Diagnosis Report for THE [place], [place] PROSTATE TISSUE; TURP: - PROSTATIC ACINAR ADENOCARCINOMA, 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 COMMENT: Intradepartmental consultation was obtained with diagnostic concurrence. CANCER CASE SUMMARY SPECIMEN Procedure Transurethral resection of the prostate (TURP) TUMOR Histologic Type Acinar adenocarcinoma Histologic Grade Grade Grade group 2 (Suring Score 3 + 4 = 7) Percentage of Pattern 4 6 - 10% Intraductal Carcinoma (IDC) Not identified Cribriform Glands Not identified Print Date/ 06/11/2021 16:16 EST Number: Time: [facility] Department of Pathology [address] [place] [address] Name: YESENIA BROUSSARD : 1945 Located Within [facility] [id number] Number: Gender: Male Location: [facility] Admit 75 years Attending BARBARA JOHNSTON Age: Provider: Ordering BARBARA JOHNSTON Provider: Consulting: Surgical Pathology Report ACCESSION: COLLECTED DATE/TIME: RECEIVED DATE/TIME: PATHOLOGIST: [id number] 06/06/2021 16:30 EST 06/07/2021 11:15 EST QUINN [...] Print Date/ 06/11/2021 16:16 EST Number: Time: [facility] Department of Pathology [address] [place] [address] Name: YESENIA BROUSSARD : 1945 Located Within [facility] [id number] Number: Gender: Male Location: [facility] Admit 75 years Attending BARBARA JOHNSTON Age: Provider: Ordering BARBARA JOHNSTON Provider: Consulting: Surgical Pathology Report ACCESSION: COLLECTED DATE/TIME: RECEIVED DATE/TIME: PATHOLOGIST: [id number] 06/06/2021 16:30 EST 06/07/2021 11:15 EST QUINN [...] MP/dakotah 06/07/2021 Tissue pathology report for: [facility], [address] [place] [address]; PATHOLOGY SERVICES PROVIDED BY [facility] CENTERWunderdata, [facility] (CLIA #[id number]) in cooperation with [facility] at [address] [place] [address] (CLIA #[id number]) Codes CPT CODE: 61739 Print Date06/11/2021 16:16 EST Number: Time: [facility] HospitalComment on above:Performed By: #### [id number] #### [facility] Services [address] [place] [address] Dye Winch Operator: Gigi Peters MD Vital Signs Date TimeVital SignValuePerforming [id number] 11:020400Body fvzdbu772.8 cmBrian Avalos MD Work Phone: [phone]10-14-2025 11:02-0400 Body mass index (BMI) [Ratio]28.3 kg/m2Brian Avalos MD Work Phone: [phone]10-14-2025 11:02-0400 Body xopktq69.35 kgBrian Avalos MD Work Phone: [phone] [place], [place] [address]0-14-2025 11:02-0400 Diastolic blood oliuvrsd60 mm[Hg]Brian Avalos MD Work Phone: [phone] [place], [place] [address]120110-14-2025 11:02-0400 Heart rate71 /minBrian Avalos MD Work Phone: [phone] [place], [place] 012[address]10-14-2025 11:02-0400 Respiratory rate20 /minBrian Avalos MD Work Phone: [phone] [place], [place] [address]10-14-2025 11:02-0400 SaO2% (BldA) [Mass fraction]97 %Brian Avalos MD Work Phone: [phone] [place], [place] [address]0-14-2025 11:02-0400 Systolic blood kapcylva478 mm[Hg]Brian Avalos MD Work Phone: [phone] [place], [place] 012[address]09-22-2025 11:37-0400 Body efogbh056.8 cmBrian Avalos MD Work Phone: [phone] [place], [place] 012[address]09-22-2025 11:37-0400 Body mass index (BMI) [Ratio]28.1 kg/m2Brian Avalos MD Work Phone: [phone] [place], [place] [address]09-22-2025 11:37-0400 Body .01 kgBrian Avalos MD Work Phone: [phone]09-22-2025 11:37-0400 Diastolic blood monvetip55 mm[Hg]Brian Avalos MD Work Phone: [facility]09-22-2025 11:37-0400 Heart rate75 /minBrian Avalos MD Work Phone: [facility]09-22-2025 11:37-0400 Respiratory rate18 /minBrian Avalos MD Work Phone: [facility]09-22-2025 11:37-0400 SaO2% (BldA) [Mass fraction]97 %Brian Avalos MD Work Phone: [facility]09-22-2025 11:37-0400 Systolic blood ixjkuflj773 mm[Hg]Brian Avalos MD Work Phone: [phone] 09:27-0400 Body .8 cmNA Luz Marina MAK Work Phone: [facility]08-20-2025 09:27-0400Body mass index (BMI) [Ratio]27.99 kg/m2PRASHANTH Nazario MD Work Phone: [facility]08-20-2025 09:27-0400Body temperature 98.6 [degF]PRASHANTH Nazario MD Work Phone: [facility]08-20-2025 09:27-0400Body iqlmyo62.5 kgPRASHANTH Nazario MD Work Phone: [facility]08-20-2025 09:27-0400Diastolic blood qakphdkq36 mm[Hg]PRASHANTH Nazario MD Work Phone: [facility]08-20-2025 09:27-0400Heart rate92 /min PRASHANTH Nazario MD Work Phone: [facility]08-20-2025 09:27-0400Respiratory rate 16 /AmberPRASHANTH Nazario MD Work Phone: [facility]08-20-2025 09:27-3181HwW7% (BldA) [Mass fraction]96 %PRASHANTH Nazario MD Work Phone: [facility]08-20-2025 09:27-0400Systolic blood wfsmjxef886 mm[Hg]PRASHANTH Nazario MD Work Phone: [facility]04-01-2025 11:30-0400Diastolic blood tigghjdy75 mm[Hg]Jose Hector HALL CLERK-[employer] Work Phone: [facility]04-01-2025 11:30-0400 Systolic blood uknmhtad275 mm[Hg]Jose Hector HALL CLERK-[employer]ER Work Phone: [facility]04-01-2025 11:16-0400 Body zprehn799.8 cmJose Hector HALL CLERK-[employer] Work Phone: [facility]04-01-2025 11:16-0400 Body mass index (BMI) [Ratio]28.55 kg/k6Krhmgprashanth Hector HALL CLERK-[employer] Work Phone: [facility]04-01-2025 11:16-0400 Body voudoq26.27 kgJose Hector HALL CLERK-[employer] Work Phone: [facility]04-01-2025 11:16-0400 Heart rate84 /Jyoti Hector HALL CLERK-[employer]ER Work Phone: [facility]03-17-2025 10:39-0400 Body qtgrux917.8 cmBrian Avalos MD Work Phone: [facility]03-17-2025 10:39-0400 Body mass index (BMI) [Ratio]28.4 kg/m2Brian Avalos MD Work Phone: [facility]03-17-2025 10:39-0400 Body oswoofxcsvu53.8 [degF]Brian Avalos MD Work Phone: [facility]03-17-2025 10:39-0400 Body ruqdtx97.92 kgBrian Avalos MD Work Phone: [facility]03-17-2025 10:39-0400 Diastolic blood mm[Hg]Brian Avalos MD Work Phone: 1([phone])[address]03-17-2025 10:39-0400 Heart rate85 /minBrian Avalos MD Work Phone: 1(634)[address]03-17-2025 10:39-0400 Respiratory rate16 /minBrian Avalos MD Work Phone: 1(281)[address] [place], [place] 0120103-17-2025 10:39-0400 SaO2% (BldA) [Mass fraction]98 %Brian Avalos MD Work Phone: 1(255)[address] [place], [place] 0120103-17-2025 10:39-0400 Systolic blood runklpit330 mm[Hg]Brian Avalos MD Work Phone: 1(159)[address] [place], [place] 0120102-13-2025 11:14-0500 Body owqelo816.8 cmBrian Avalos MD Work Phone: 1(397)[address] [place], [place] 0120102-13-2025 11:14-0500 Body atiwbhcfhij39 [degF]Brian Avalos MD Work Phone: 1(260)[address] [place], [place] 0120102-13-2025 11:14-0500 Body aoqltf38 kgBrian Avalos MD Work Phone: 1(448)[address] [place], [place] 0120102-13-2025 11:14-0500 Diastolic blood xwcdscyo96 mm[Hg]Brian Avalos MD Work Phone: 1(773)[address] [place], [place] 0120102-13-2025 11:14-0500 Heart thmq785 /minBrian Avalos MD Work Phone: 1(689)[address]02-13-2025 11:14-0500 Respiratory rate18 /minBrian Avalos MD Work Phone: 1([phone])[address]02-13-2025 11:14-0500 SaO2% (BldA) [Mass fraction]96 %Brian Avalos MD Work Phone: [facility]02-13-2025 11:14-0500 Systolic blood wwnumcao490 mm[Hg]Brian Avalos MD Work Phone: [facility]02-12-2025 13:16-0500 Body avvudi975.8 cmBrittany Ward [employer] [facility]: [facility] 13:16-0500Body mass index (BMI) [Ratio]28.84 kg/z4Topbjqji Ward [employer] Work Phone: [facility]Kubxvhhqmx88-70-2223 13:16-0500Body temperature 97.7 [degF]Nasir Ward [employer] Work Phone: [facility]Mlioojlxld67-88-9090 13:16-0500Body ewgdbe90.17 kgBrittany Ward [employer] Work Phone: [facility]Mijxudhsdh22-48-5256 13:16-0500Diastolic blood qdctscpu76 mm[Hg]Nasir Ward [employer] Work Phone: [facility] HospitalFjvddrsfsn20-40-7705 13:16-0500Heart rate94 /min Nasir Ward [employer] Work Phone: [facility]Hrpfbhexpn28-51-6316 13:16-0500Respiratory rate16 /minBrnathenjustin Ward [employer] Work Phone: [facility] HospitalCsajvetfip84-49-2572 13:16-6385AmH9% (BldA) [Mass fraction]94 %Nasir Ward [employer] Work Phone: [facility] HospitalVyceamozqt12-07-7864 13:16-0500Systolic blood cftgmgad180 mm[Hg]Nasir Ward [employer] Work Phone: [facility] HospitalLqhrzhvnwx60-05-5784 11:12-0500Body fvbeme242.8 cmBrittany Ward [employer] Work Phone: [place] [address]Pqujxiznki86-92-5368 11:12-0500Body mass index (BMI) [Ratio]27.86 kg/v2Adsmrmwr Ward [employer] Work Phone: 1(794)459-[address] [place], [place] [address]Rcqwmovrmf66-23-7930 11:12-0500Body temperature 96.3 [degF]Nasir Ward [employer] Work Phone: [place] [address]Hduacivprr17-87-0176 11:12-0500Body xdlikh92.09 kgBrtariq Ward [employer] Work Phone: 1([phone])4-[address] [place], [place] [address]Wqfumuegjs43-68-0807 11:12-0500Diastolic blood bhzwhiwi39 mm[Hg]Nasir Ward [employer] Work Phone: 1(786)598-[address] [place], [place] [address]Jydcuxnupp80-48-5770 11:12-0500Heart rate93 /min Nasir Ward [employer] Work Phone: [place] [address]Aajyqpyeoo22-15-7112 11:12-0500Respiratory rate16 /minBrtariq Ward [employer] Work Phone: [place] [address]Ytjmrkdibb42-11-3415 11:12-6886TrR9% (BldA) [Mass fraction]93 %Nasir Ward [employer] Work Phone: [place] [address]Wxjfudgsfo36-75-1095 11:12-0500Systolic blood qyjloelu396 mm[Hg]Nasir Ward [employer] Work Phone: 1(731)585-[address] [place], [place] [address]Kepefhbqwd08-40-4246 11:31-0500Blood Pressure LocationBarbara JOHNSTON [facility]11-18-2024 11:31-0500Body .6 [degF]Barbara JOHNSTON [facility]11-18-2024 11:31-0500Diastolic blood ywxjirhq97 mm[Hg]Barbara JOHNSTON [facility]11-18-2024 11:31-0500Heart rate95 /minPatrick JOHNSTON [facility]11-18-2024 11:31-0500Respiratory rate16 /minPatrick JOHNSTON [facility]11-18-2024 11:31-0500Systolic blood mm[Hg]Barbara JOHNSTON [facility]09-30-2024 08:28-0400Body vedmur575.8 cmPHYSICIAN [facility]09-30-2024 08:28-0400Body mass index (BMI) [Ratio]27.4 kg/o7WHLTFABMP [facility]09-30-2024 08:28-0400 Body ablxzbscake11.8 [degF]PHYSICIAN [facility] 02-29-2024 08:28-0400Body nfecaa41.86 kgPHYSICIAN [facility]09-30-2024 08:28-0400Diastolic blood zzrdvixy92 mm[Hg]PHYSICIAN [facility]09-30-2024 08:28-0400Heart rate98 /min PHYSICIAN [facility]09-30-2024 08:28-0400 Respiratory rate16 /minPHYSICIAN [facility] 02-29-2024 08:28-5598AaB3% (BldA) [Mass fraction]99 %PHYSICIAN [facility]09-30-2024 08:28-0400Systolic blood hobyvsqh673 mm[Hg]PHYSICIAN [facility]08-21-2024 17:46-0400 Body vtiedd008.8 cmNasir Ward NP Work Phone: [facility] HospitalRvbamraeae44-49-5918 17:46-0400Body mass index (BMI) [Ratio]27.55 kg/v5Rnvlmsqg Ward [employer] Work Phone: noCass [facility] CenterIcdqmparvj57-22-6870 17:46-0400Body temperature 98.49 [degF]Nasir Gascapatrick [employer] Work Phone: [facility] HospitalMwyfqrgmst91-08-9871 17:46-0400Body uirytg33.09 kgNasir Gascapatrick [employer] Work Phone: [facility] HospitalNojrbmqdii63-56-4951 17:46-0400Diastolic blood mm[Hg]Nasir Gascapatrick [employer] Work Phone: [facility] HospitalYqgqiiagmw44-75-6226 17:46-0400Heart rate76 /min Nasir Gascapatrick [employer] Work Phone: noDC HealthcareComment on above:97% C793-91-0725 17:46-0400Systolic blood ulkdzsdl245 mm[Hg]Nasir Gascapatrick [employer] Work Phone: [facility] HospitalRywaylpmmp34-51-0470 14:33-0400Body mass index (BMI) [Ratio]27.49 kg/m2PRASHANTH Nazario MD Work Phone: [facility]07-16-2024 14:33-0400Body temperature 97.81 [degF]PRASHANTH Nazario MD Work Phone: [facility]07-16-2024 14:33-0400Body odxawb24.9 kgPRASHANTH Nazario MD Work Phone: [place] [address]-16-2024 14:33-0400Diastolic blood mm[Hg]PRASHANTH Nazario MD Work Phone: [facility]07-16-2024 14:33-0400Heart rate86 /min PRASHANTH Nazario MD Work Phone: [facility]07-16-2024 14:33-0400Respiratory rate 16 /AmberPRASHANTH Nazario MD Work Phone: [place] [address]-16-2024 14:33-1430GgO6% (BldA) [Mass fraction]98 %PRASHANTH Nazario MD Work Phone: [facility]07-16-2024 14:33-0400Systolic blood krmweben761 mm[Hg]PRASHANTH Nazario MD Work Phone: [facility]05-16-2024 09:17-0400Body uvpmar769.8 cmMD Shaikh Storm Work Phone: 1(326)229-[address] [place], [place] [address]05-16-2024 09:17-0400 Body mass index (BMI) [Ratio]28.1 kg/m2MD Shaikh Storm Work Phone: 1(206)[address]05-16-2024 09:17-0400 Body tizanjextag02.8 [degF]MD Shaikh Storm Work Phone: 1(693)[address]05-16-2024 09:17-0400 Body jpnopt34 kgMD Shaikh Dotty Work Phone: 1(330)[address]05-16-2024 09:17-0400 Diastolic blood utyhabls48 mm[Hg]MD Shaikh Storm Work Phone: 1(473)[address]05-16-2024 09:17-0400 Heart rate67 /minMD Shaikh Storm Work Phone: 1(575)190-[address] [place], [place] [address]05-16-2024 09:17-0400 Respiratory rate16 /minMD Shaikh Storm Work Phone: 1(367)998-[address] [place], [place] [address]05-16-2024 09:17-0400 SaO2% (BldA) [Mass fraction]94 %MD Shaikh Storm Work Phone: 1(554)513-[address] [place], [place] [address]05-16-2024 09:17-0400 Systolic blood swcoqlfu398 mm[Hg]MD Shaikh Storm Work Phone: 1(417)[address]04-19-2024 10:50-0400 Blood Pressure LocationPatrick PRESTON [facility]04-19-2024 10:50-0400Diastolic blood ismoeayg90 mm[Hg]Barbara JOHNSTON [facility]04-19-2024 10:50-0400Heart rate76 /minPatrick PRESTON [facility]04-19-2024 10:50-0400Respiratory rate16 /minPatrick PRESTON [facility]04-19-2024 10:50-0400Systolic blood mm[Hg]Barbara JOHNSTON [facility]03-19-2024 12:12-0400Diastolic blood trleagfr23 mm[Hg]Chaim Grayson DO Work Phone: [facility]03-19-2024 12:12-0400 Systolic blood mm[Hg]Chaim Grayson DO Work Phone: [facility]03-19-2024 11:52-0400 Body krtimk407.8 cmWilavernvalencia Kenan DO Work Phone: [facility]03-19-2024 11:52-0400 Body mass index (BMI) [Ratio]28.12 kg/l6Eoefjyl Kenan DO Work Phone: [facility]03-19-2024 11:52-0400 Body fribzv98.91 kgWillmarkie Kenan DO Work Phone: [facility]03-19-2024 11:52-0400 Heart rate80 /minChaim Grayson DO Work Phone: [facility]01-18-2024 13:11-0500 Diastolic blood xmfjzjki13 mm[Hg]Tram [address] [place] [address] 06-18-2023 13:11-0500Heart rate86 /minEly [address] [place] [address] 06-18-2023 13:11-0500Systolic blood inuvychr114 mm[Hg]Tram [address] [place], [place] [address]01-12-2024 11:11-0500Body wurhpa158.8 cmKodi Reynolds MD Work Phone: [facility]01-12-2024 11:11-0500Body danrty54.91 kgKodi Reynolds MD Work Phone: [facility]01-04-2024 10:19-0500Diastolic blood mm[Hg]Chaim Grayson DO Work Phone: [facility]01-04-2024 10:19-0500 Systolic blood gtyjugzc606 mm[Hg]Chaim Grayson DO Work Phone: [facility]01-04-2024 10:18-0500 Body ynakxc477.8 cmWijamila Grayson DO Work Phone: [facility]01-04-2024 10:18-0500 Body mass index (BMI) [Ratio]28.41 kg/x3YbonhxlChaim Austindon DO Work Phone: [facility]01-04-2024 10:18-0500 Body qiggrm73.81 kgChaim Austindon DO Work Phone: [facility]01-04-2024 10:18-0500 Heart rate83 /minChaim Austindon DO Work Phone: [facility]11-21-2023 09:05-0500 Diastolic blood vlimebpy94 mm[Hg]CLAIRE JAMES [facility]11-21-2023 09:05-0500Heart rate76 /Bryanna JAMES [facility]11-21-2023 09:05-0500Mean blood dslplmis374 mm[Hg]CLAIRE BRITNI [facility]11-21-2023 09:05-0500Systolic blood nublsbru816 mm[Hg]CLAIRE BRITNI [facility]11-21-2023 08:20-0500Blood Pressure LocationJENNIFER BRITNI [facility] [place] [address]-21-2023 08:20-0500Diastolic blood dhfrztbo93 mm[Hg]CLAIRE BRITNI [facility]11-21-2023 08:20-0500Heart rate79 /minJENNIFER BRITNI [facility]11-21-2023 08:20-0500Respiratory rate16 /minJENNIFER BRITNI [facility]11-21-2023 08:20-0500Systolic blood rcrqukll066 mm[Hg]CLAIRE BRITNI [facility]11-16-2023 11:30-0500Body zuufts038.8 cmMagermania Mchugh Other [employer] Other 11-16-2023 11:30-0500Body mass index (BMI) [Ratio] 28.26 kg/f8DpkgnmbJose Martin Mchugh Other [employer] Other 11-16-2023 11:30-0500Body euhggpzwrxc78.8 [degF] Jose Martin Mchugh Other [employer] Other 11-16-2023 11:30-0500Body bqdiyr14.36 kgJose Martin Mchugh Other [employer] Other 11-16-2023 11:30-0500Diastolic blood rrjgmanl14 mm[Hg] Jose Martin Mchugh Other [employer] Other 11-16-2023 11:30-0746QiP7% (BldA) [Mass fraction]97 % Jose Martin Mchugh Other [employer] Other 11-16-2023 11:30-0500Systolic blood mm[Hg] Jose Martni Mchugh Other [employer] Other 10-23-2023 12:55-0400Diastolic blood vznxzklu08 mm[Hg] MD Shaikh Storm Work Phone: [facility]10-23-2023 12:55-0400 Heart rate54 /minMD Shaikh Storm Work Phone: [facility]10-23-2023 12:55-0400 Respiratory rate16 /minMD Shaikh Storm Work Phone: [facility]10-23-2023 12:55-0400 SaO2% (BldA) [Mass fraction]95 %MD Shaikh Storm Work Phone: [facility]10-23-2023 12:55-0400 Systolic blood myeehffs261 mm[Hg]MD Shaikh Storm Work Phone: [facility]10-23-2023 09:48-0400 Inhaled oxygen flow rate4 L/minMD Shaikh Storm Work Phone: [facility]10-23-2023 07:22-0400 Body fppkge197.8 cmMD Shaikh Storm Work Phone: [facility]10-23-2023 07:22-0400 Body .35 kgMD Shaikh Storm Work Phone: [facility]10-12-2023 08:30-0400 Body jcofvp315.8 cmMattblanquita Mchugh Other [employer] Other 10-12-2023 08:30-0400Body mass index (BMI) [Ratio] 28.26 kg/y0OybtaomJose Martin Mchugh Other [employer] Other 10-12-2023 08:30-0400Body xpzhodzlnxd54.5 [degF] Jose Martin Mchugh Other [employer] Other 10-12-2023 08:30-0400Body yrzsrp06.36 kgMagermania Mchugh Other [employer] Other 10-12-2023 08:30-0400Diastolic blood zqdgehdz20 mm[Hg] Jose Martin Mchugh Other [employer] Other 10-12-2023 08:30-6424JqY9% (BldA) [Mass fraction]97 % Jose Martin [facility]chugh [facility] Other 10-12-2023 08:30-0400Systolic blood uphfgjhu640 mm[Hg] Jose Martin Mchugh Other [employer] Other 09-22-2023 11:15-0400Diastolic blood arwvwozx11 mm[Hg] MD Shaikh Storm Work Phone: 1(737)504-[address] [place], [place] 9170909-22-2023 11:15-0400 Heart rate45 /minMD Shaikh Storm Work Phone: 1(393)425-[address] [place], [place] 9170909-22-2023 11:15-0400 Respiratory rate18 /minMD Shaikh Storm Work Phone: 1(533)962-[address] [place], [place] 9170909-22-2023 11:15-0400 SaO2% (BldA) [Mass fraction]95 %MD Shaikh Storm Work Phone: 1(123)[address]09-22-2023 11:15-0400 Systolic blood mm[Hg]MD Shaikh Storm Work Phone: 1(959)[address]09-22-2023 11:07-0400 Body mmxjji558.8 cmMD Shaikh Storm Work Phone: 1(772)[address]09-22-2023 11:07-0400 Body mass index (BMI) [Ratio]29 kg/m2MD Shaikh Storm Work Phone: 1(528)[address]09-22-2023 11:07-0400 Body wujmpb29 kgMD Shaikh Storm Work Phone: 1(191)213-[address] [place], [place] 9170909-22-2023 07:53-0400 Body pprzaqgcbaw31 [degF]MD Shaikh Storm Work Phone: 1(307)559-[address] [place], [place] 9170909-20-2023 11:30-0400 Body .8 cmBonnie Tan Other [facility] [employer] Other 09-20-2023 11:30-0400Body mass index (BMI) [Ratio] 29.12 kg/q0EmwipeBonnie Tan Other [employer] Other 09-20-2023 11:30-0400Body arnfldiqcuh38.8 [degF]Bonnie Tan Other [employer] Other 09-20-2023 11:30-0400Body auyhxy10.08 kgJaric Tan Other [employer] Other 09-20-2023 11:30-0400Diastolic blood xkkdvpve59 mm[Hg] Bonnie Johnfilipeyaneli Other [employer] Other 09-20-2023 11:30-3720XnS7% (BldA) [Mass fraction]97 % Bonnie Tan Other [employer] Other 09-20-2023 11:30-0400Systolic blood yrlmgtrt276 mm[Hg] Bonnie Tan Other [employer] Other 09-13-2023 14:48-0400Blood Pressure LocationJENNIFER BRITNI [facility]09-13-2023 14:48-0400Diastolic blood gcwqrwez97 mm[Hg]CLAIRE BRITNI [facility]09-13-2023 14:48-0400Heart rate80 /minJENNIFER BRITNI [facility]09-13-2023 14:48-0400Respiratory rate16 /minJENNIFER BRITNI [facility]09-13-2023 14:48-0400Systolic blood peczmbnl096 mm[Hg]CLAIRE BRITNI [facility]08-21-2023 13:04-0400Body slqzif59.63 kgPhijessie Nichols DO Work Phone: [facility]08-21-2023 13:04-0400Diastolic blood ogfsxghw00 mm[Hg]Jose Nichols DO Work Phone: [facility]08-21-2023 13:04-0400Heart rate48 /min Jose Nichols DO Work Phone: [facility]08-21-2023 13:04-0400Systolic blood ambggcqm890 mm[Hg]Jose Nichols DO Work Phone: [facility]07-05-2023 14:57-0400Blood Pressure LocationJENNIFER BRITNI [facility]07-05-2023 14:57-0400Diastolic blood pjldxygf52 mm[Hg]CLAIRE BRITNI [facility]07-05-2023 14:57-0400Heart rate69 /minJENNIFER BRITNI [facility]07-05-2023 14:57-0400Respiratory rate16 /minJENNIFER BRITNI [facility]07-05-2023 14:57-0400Systolic blood yhcqelas509 mm[Hg]CLAIRE BRITNI [facility]06-20-2023 13:29-0400Body gaflupyymiz52.71 [degF]PRASHANTH Nazario MD Work Phone: [facility]06-20-2023 13:29-0400Body gquyad79.53 kgPRASHANTH Nazario MD Work Phone: [facility]06-20-2023 13:29-0400Diastolic blood ogglqamn65 mm[Hg]PRASHANTH Nazario MD Work Phone: [facility]06-20-2023 13:29-0400Heart rate56 /min PRASHANTH Nazario MD Work Phone: [facility]06-20-2023 13:29-0400Respiratory rate 18 /AmberPRASHANTH Nazario MD Work Phone: [facility]06-20-2023 13:29-8470ZdW7% (BldA) [Mass fraction]96 %PRASHANTH Nazario MD Work Phone: [facility]06-20-2023 13:29-0400Systolic blood mm[Hg]PRASHANTH Nazario MD Work Phone: [facility]11-21-2022 15:30-0500Body temperature 96.69 [degF]PRASHANTH Nazario MD Work Phone: [facility]11-21-2022 15:30-0500Body nmopwu53.71 kgPRASHANTH Nazario MD Work Phone: [facility]11-21-2022 15:30-0500Diastolic blood hcrbsfez88 mm[Hg]PRASHANTH Nazario MD Work Phone: [facility]11-21-2022 15:30-0500Heart rate58 /min PRASHANTH Nazario MD Work Phone: [facility]11-21-2022 15:30-0500Respiratory rate 18 /AmberPRASHANTH Nazario MD Work Phone: [facility]11-21-2022 15:30-8088HhS8% (BldA) [Mass fraction]98 %PRASHANTH Nazario MD Work Phone: [facility]11-21-2022 15:30-0500Systolic blood sghilmbf881 mm[Hg]PRASHANTH Nazario MD Work Phone: [place] [address]-14-2022 15:04-0500Body temperature 97.59 [degF]PRASHANTH Nazario MD Work Phone: [phone])509-24[place] [address]-14-2022 15:04-0500Body .44 kgPRASHANTH Nazario MD Work Phone: [facility]11-14-2022 15:04-0500Diastolic blood vhzuibqb07 mm[Hg]PRASHANTH Nazario MD Work Phone: 1([phone]11-14-2022 15:04-0500Heart rate64 /min PRASHANTH Nazario MD Work Phone: 1(049)[address] [place] [address]-14-2022 15:04-0500Respiratory rate 16 /AmberPRASHANTH Nazario MD Work Phone: 1(641)489-[address] [place], [place] 7256111-14-2022 15:04-8089AdX7% (BldA) [Mass fraction]97 %PRASHANTH Nazario MD Work Phone: 1(054)722-60[place] [address]-14-2022 15:04-0500Systolic blood wdpkehas409 mm[Hg]PRASHANTH Nazario MD Work Phone: [facility]11-07-2022 11:01-0500Body temperature 97.39 [degF]PRASHANTH Nazario MD Work Phone: [facility]11-07-2022 11:01-0500Body .35 kgPRASHANTH Nazario MD Work Phone: [facility]11-07-2022 11:01-0500Diastolic blood rtiyoeqd60 mm[Hg]PRASHANTH Nazario MD Work Phone: [phone]11-07-2022 11:01-0500Heart rate55 /min PRASHANTH Nazario MD Work Phone: [place] [address]-07-2022 11:01-0500Respiratory rate 18 /AmberPRASHANTH Nazario MD Work Phone: [facility]11-07-2022 11:01-3473HxA6% (BldA) [Mass fraction]98 %PRASHANTH Nazario MD Work Phone: [facility]11-07-2022 11:01-0500Systolic blood rhebwymj829 mm[Hg]PRASHANTH Nazario MD Work Phone: [facility]10-31-2022 15:33-0400Body temperature 96.69 [degF]PRASHANTH Nazario MD Work Phone: [facility]10-31-2022 15:33-0400Body .8 kgPRASHANTH Nazario MD Work Phone: [facility]10-31-2022 15:33-0400Diastolic blood qvbucbty03 mm[Hg]PRASHANTH Nazario MD Work Phone: [facility]10-31-2022 15:33-0400Heart rate54 /min PRASHANTH Nazario MD Work Phone: [facility]10-31-2022 15:33-0400Respiratory rate 18 /AmberPRASHANTH Nazario MD Work Phone: [facility]10-31-2022 15:33-0109VhD9% (BldA) [Mass fraction]97 %PRASHANTH Nazario MD Work Phone: [facility]10-31-2022 15:33-0400Systolic blood mm[Hg]PRASHANTH Nazario MD Work Phone: [facility]10-24-2022 16:03-0400Body temperature 98.01 [degF]PRASHANTH Nazario MD Work Phone: [facility]10-24-2022 16:03-0400Body jbogae63.44 kgPRASHANTH Nazario MD Work Phone: [facility]10-24-2022 16:03-0400Diastolic blood cfpvxekj40 mm[Hg]PRASHANTH Nazario MD Work Phone: [facility]10-24-2022 16:03-0400Heart rate50 /min PRASHANTH Nazario MD Work Phone: [facility]10-24-2022 16:03-0400Respiratory rate 16 /AmberPRASHANTH Nazario MD Work Phone: [facility]10-24-2022 16:03-4195VrS9% (BldA) [Mass fraction]100 %PRASHANTH Nazario MD Work Phone: [facility]10-24-2022 16:03-0400Systolic blood nefhqlbi516 mm[Hg]PRASHANTH Nazario MD Work Phone: [facility]10-18-2022 11:52-0400Body temperature 97.9 [degF]PRASHANTH Nazario MD Work Phone: [facility]10-18-2022 11:52-0400Body .44 kgNA Luz Marina MAK Work Phone: [facility]10-18-2022 11:52-0400Diastolic blood mm[Hg]PRASHANTH Nazario MD Work Phone: [facility]10-18-2022 11:52-0400Heart rate56 /min PRASHANTH Nazario MD Work Phone: [facility]10-18-2022 11:52-0400Respiratory rate 16 /AmberPRASHANTH Nazario MD Work Phone: [facility]10-18-2022 11:52-6432CkR7% (BldA) [Mass fraction]96 %PRASHANTH Nazario MD Work Phone: [facility]10-18-2022 11:52-0400Systolic blood appwudjy548 mm[Hg]PRASHANTH Nazario MD Work Phone: [facility]07-12-2022 09:19-0400Body ioavqx044.9 cmPRASHANTH Nazario MD Work Phone: [facility]07-12-2022 09:19-0400Body temperature 98.71 [degF]PRASHANTH Nazario MD Work Phone: [facility]07-12-2022 09:19-0400Body dfbeab04.35 kgPRASHANTH Nazario MD Work Phone: [facility] [facility]07-12-2022 09:19-0400Diastolic blood xoxmamrb70 mm[Hg]PRASHANTH Nazario MD Work Phone: [facility]07-12-2022 09:19-0400Heart rate51 /min PRASHANTH Nazario MD Work Phone: [facility]07-12-2022 09:19-0400Respiratory rate 16 /AmberPRASHANTH Nazario MD Work Phone: [facility]07-12-2022 09:19-4945AwQ6% (BldA) [Mass fraction]97 %PRASHANTH Nazario MD Work Phone: [facility]07-12-2022 09:19-0400Systolic blood emfcobkf574 mm[Hg]PRASHANTH Nazario MD Work Phone: [facility]06-06-2022 09:48-0400Blood Pressure LocationBarbara JOHNSTON [facility] 06-06-2022 09:48-0400Diastolic blood ciukafpw85 mm[Hg] Barbara JOHNSTON [facility] 06-06-2022 09:48-0400Heart rate52 /minBarbara JOHNSTON [facility] 06-06-2022 09:48-0400Systolic blood okpzewxq646 mm[Hg] Barbara JOHNSTON [facility] 05-26-2022 16:40-0400Body qdfygu001.8 cmAbdul Vivian Other [employer] Other 05-26-2022 16:40-0400Body mass index (BMI) [Ratio] 29.01 kg/x8Caykr Vivian Other [facility] [employer] Other 05-26-2022 16:40-0400Body jswyspcuyip88 [degF]Theo Vivian Other [facility] [employer] Other 05-26-2022 16:40-0400Body zydmmu76.72 kgAbdul Vivian Other [facility] [employer] Other 05-26-2022 16:40-0400Diastolic blood imkcwkwm76 mm[Hg] Theo Vivian Other [facility] [employer] Other 05-26-2022 16:40-0400Respiratory rate18 /minAbdul Vivian Other [employer] Other 05-26-2022 16:40-5348UvM4% (BldA) [Mass fraction]96 % Theo Vivian Other [facility] [employer] Other 05-26-2022 16:40-0400Systolic blood gfrpxofp552 mm[Hg] Theo Vivian Other [employer] Other Encounters Encounter DateEncounter TypeCare ProviderFacilityStart: 04-03-2025 End: 48-88-8712bvsxbypouhEocpept R WATERSFacility:TRISTIN BellevueStart: 04-03-2025 End: 31-35-5086Gcgqhfu encounter procedurePaharoldo JOHNSTON [facility] start: 03-29-2025 End: 26-53-1785mgtdvcsomnAsothsd R WATERSFacility:EU [facility]Start: 03-29-2025 End: 55-72-3231Jtevfjc encounter procedureBarbara JOHNSTON [facility] start: 03-23-2025 End: 02-66-3451cgkskslincUbou Naderer MD Work Phone: -[facility] [place] [facility]ospStart: 03-23-2025 End: 09-33-8665Rcvraexx ReferredBarbara Johnston MD-[facility] Start: 03-23-2025 End: 70-12-7559rebxqaoexdZaukxjo R WATERSFacility:CD:[id number]: 03-15-2025 [facility]14[facility]25 End: 63-89-1561lxyrothspmUqqq Naderer MD Work Phone: [facility] Work Phone: Start: 03-14-2025 End: 20-27-5144Kejascr encounter procedureJebradley Nuñez DO-[facility] Rene Work Phone: Start: 08-42-4480Dbi-patient / Non-visitBarbara Johnston MD-[facility] Work Phone: Start: 03-07-2025 End: 88-98-8992syiyiomuwlQwgmxtw R WATERSFacility:[facility]ENTERtart: 65-49-6582Zga- patient / Non-visitBarbara Johnston MD-[facility] Work Phone: Start: 03-01-2025 End: 69-61-4368dyvdytueojSVXQPHolmes County [facility] Start: 02-21-2025 End: 43-88-7377Dptvszhwr Result EncounterGeneric External Data ProviderNOMS External Department UnsolicitedStart: 02-21-2025 End: 46-10-7875Imqcrwojx Result EncounterGeneric External Data ProviderNOMS External Department UnsolicitedStart: 02-20-2025 End: 20-69-8598akjbaxcefjTayn Naderer MD Work Phone: [facility] Work Phone: Start: 02-20-2025 End: 29-57-4916Vrlpvvp encounter procedureTheo Thakkar MD-[facility] Work Phone: Start: 02-13-2025 End: 65-30-9201Dfcxkenqx Result EncounterGeneric External Data ProviderNOMS External Department UnsolicitedStart: 02-13-2025 End: 86-06-0796Nypxdboqd Result EncounterGeneric External Data ProviderNOMS External Department UnsolicitedStart: 13-99-0945Rfn-patient / Non-visitTheo Thakkar MD-[facility] Work Phone: Start: 01-18-2025 End: 60-45-3106Wvuhkk outpatient visit 15 minutesG Jose Nazario MD Work Phone: Radiation OncologyComment on above:Cancer of prostate w/med recur risk (T2b-c or Nicola 7 or PSA 10-20) (HCC) (Primary Dx)Start: 01-18-2025 End: 68-34-3366wgenhxwvkyNPancho DE LA GARZAacility:[facility] Start: 01-12-2025 End: 64-40-3472Awlokdajq Result EncounterGeneric External Data ProviderNOMS External Department UnsolicitedStart: 01-12-2025 End: 33-37-7142Gxdhwksrw Result EncounterGeneric External Data ProviderNOMS External Department UnsolicitedStart: 01-12-2025 End: 97-92-9433hgjpuffglrUPancho DE LA GARZAacility:[facility] Start: 09-12-2024 End: 44-34-6067GvzeljPdzn Naderer MD Work Phone: [facility] FMComment on above:Primary hypertension ([facility]/HCC)Start: 08-30-2024 End: 21-77-3091jrzwlyujbwFUZEP K [facility] HospitalStart: 08-30-2024 End: 49-53-8252Ltvwok outpatient visit 15 minutesJose Hector HALL CLERK-FIRST COAT SANDER Work Phone: FirelandsComment on above:Mixed hyperlipidemia (Primary Dx); Bilateral carotid artery disease, unspecified type; Hypertension, unspecified type; BMI 28.0-28.9,adult; Smoker; Prostate cancer (Multi); Chronic kidney disease, stage 3b (Multi); ASHD (arteriosclerotic heart disease); PVD (peripheral vascular disease) ([facility]-HCC)Start: 08-29-2024 End: 78-26-2822vwqowcossjSFUFLXBN E PERRYFacility:FTMCStart: 08-29-2024 End: 86-40-7574Nop Drop offJENNIFER E BRITNI [facility] Start: 08-29-2024 End: 34-99-5803mjhijsehabFHRYUYQN E PERRYFacility:EU BellevueStart: 08-22-2024 End: 85-21-6820cvtvxfsfruQeorsw X OrzechFacility:FTMCStart: 08-22-2024 End: 66-45-9084Zxr Drop offAurora X Orzech [facility] Start: 08-22-2024 End: 69-57-1551iynotststyLmgxdkg R WATERSFacility:EU BellevueStart: 08-18-2024 End: 05-86-1032jddzintaoaSHYRJYE [facility] Hospitaltart: 08-15-2024 End: 78-42-4460usuhsnchutVcaj Naderer MD Work Phone: [facility] Work Phone: Start: 08-15-2024 End: 81-75-6386Ptbfwjg encounter procedureBrian Avalos MD Work Phone: [facility] Work Phone: Start: 08-10-2024 End: 89-70-0211Edeiopy encounter procedureBrian Avalos MD Work Phone: [facility]-Lab [place] Work Phone: Start: 08-10-2024 End: 87-83-8903waxsyjvtdhRfkr Naderer MD Work Phone: [facility] Work Phone: Start: 08-08-2024 End: 93-33-0607Rng Drop offJENNIFER E BRITNI [facility] Start: 08-08-2024 End: 52-13-7336bemtxnmxjqCLFSUNNQ E PERRYFacility:FTMCStart: 07-14-2024 End: 03-69-0663Gjhqdtcwm department patient visitBrian Avalos MD Work Phone: [facility]-Emergency Room Work Phone: Start: 07-13-2024 End: 98-32-9198Nchflx flowsheetBrtariq Duttonk SIDING STAPLER Work Phone: noms CWM FMStart: 07-13-2024 End: 96-80-8513Gxrqbm flowsheetBrtariq Lopeztrick SIDING STAPLER Work Phone: noms CWM FMStart: 07-13-2024 End: 62-26-7835Egugfb outpatient visit 15 minutesBrtariq Duttonk SIDING STAPLER Work Phone: NOIY CWM FMComment on above:Stage 3a chronic kidney disease (HCC) (CMS/HCC) (Primary Dx); Lumbar stenosis with neurogenic claudication; Mixed hyperlipidemia (CMS/HCC); Primary hypertension (CMS/HCC)Start: 07-13-2024 End: 05-30-1948svnhbikthbMWYGDAPH FITZPATRICKNot AvailableStart: 04-21-2024 End: 10-50-1851Hhcqts flowsheetBrittany Ward SIDING STAPLER Work Phone: noms CWM FMStart: 04-21-2024 End: 53-82-6687Ccqayx flowsheetBrittany Ward SIDING STAPLER Work Phone: noms CWM FMStart: 04-21-2024 End: 49-85-1083Tujvja outpatient visit 15 minutesBrittany Ward SIDING STAPLER Work Phone: noms CWM FMComment on above:Mixed hyperlipidemia (CMS/HCC) (Primary Dx); Primary hypertension (CMS/HCC); Stage 3a chronic kidney disease (HCC) (CMS/HCC)Start: 04-21-2024 End: 66-04-6739hcybkeubacRXWNGXRA FITZPATRICKNot AvailableStart: 04-18-2024 End: 67-70-4799rgqgmtfhjjGseunob R WATERSFacility:EU ueStart: 04-18-2024 End: 73-58-6571Vrncwtl encounter procedureBarbara JOHNSTON [facility] start: 04-07-2024 End: 18-50-1050Kuo Drop offKarime Gunderson [facility] Start: 04-07-2024 End: 16-93-2374euhdpadcxlNiudcc J GaleaFacility:FTMCStart: 04-07-2024 End: 69-91-1073Vszabfh encounter procedureAlysbakari Gunderson [facility] start: 02-29-2024 End: 50-18-3181cunqyhpbkgJPIWOOZRZ NO [facility] Work Phone: Start: 02-29-2024 End: 48-60-8539Mrssvxi encounter procedurePHYSICIAN NO [facility] Nephrology [place] Work Phone: Start: 02-25-2024 End: 68-59-1974ihlockkraaQWZINHRKQ NO [facility] Work Phone: Start: 02-25-2024 End: 22-88-4424Inwarzi encounter procedurePHYSICIAN NO [facility]-Lab [place] Work Phone: Start: 02-18-2024 End: 45-63-0962XrolleOvrsan Wellington MANOMS CWM FMComment on above:Primary hypertension (CMS/HCC)Start: 02-02-2024 End: 10-93-4414NiqypzFrxjmf [place] MANOMS CWM IMComment on above:Primary hypertension (CMS/HCC)Start: 01-20-2024 End: 74-13-5762Ogavsx outpatient visit 25 minutesBrtariq Duttonk SIDING STAPLER Work Phone: noms CWM FMComment on above:Primary hypertension (CMS/HCC) (Primary Dx); Coronary artery disease involving caddo coronary artery of caddo heart without angina pectoris (CMS/HCC); Stage 3a chronic kidney disease (HCC) (CMS/HCC); Gastroesophageal reflux disease without esophagitis; Tobacco abuse; Prostate cancer (CMS/HCC); Benign prostatic hyperplasia with lower urinary tract symptoms, symptom details unspecifiedStart: 01-20-2024 End: 37-01-2619yiuabpwlznAQJKHAQJ FITZPATRICKNot AvailableStart: 01-20-2024 End: 50-17-5445Cwzwxs flowsheetBrittany Ward SIDING STAPLER Work Phone: noms CWM FMStart: 01-20-2024 End: 46-35-4311Hxpigp flowsheetBrittany Ward SIDING STAPLER Work Phone: noms CWM FMStart: 12-15-2023 End: 90-92-4499Kbagapi encounter procedureG Jose Nazario MD Work Phone: Radiation OncologyComment on above:Prostate cancer (HCC) (Primary Dx); Stage 3 chronic kidney disease, unspecified whether stage 3a or 3b CKD (HCC) Start: 12-08-2023 End: 87-74-2020opqypmucouPAHHLX FAWWADNot AvailableStart: 10-15-2023 End: 97-36-2045Fxkpjvh encounter procedureMD Dotty Work Phone: [facility] Vascular Surgery Work Phone: Start: 10-01-2023 End: 96-86-9301stmblhiuqhDX Dotty Work Phone: [facility] Work Phone: Start: 10-01-2023 End: 71-58-4332Epsnrip encounter procedureMD Shaikh Shubhamkaushik Work Phone: [facility]-Lab [facility] [place] Work Phone: Start: 09-28-2023 End: 30-67-9237mrqfekigmtIRLYNI FAWWADNot AvailableStart: 09-18-2023 End: 32-37-7038wapxtkmyreNnqcoiw R WATERSFacility:EU BellevueStart: 09-18-2023 End: 42-38-1460Aishork encounter procedurePaharoldo JOHNSTON [facility] [place] start: 88-06-8075Ujw-patient / Non-visit Carreongeri Storm Work Phone: [facility]Saint [facility] Work Phone: Start: 08-18-2023 End: 34-28-4461Yhlbct outpatient visit 25 minutesChaim Grayson DO Work Phone: uh [facility]hrmcComment on above:Hypertension, unspecified type; Mixed hyperlipidemia; Bilateral carotid artery disease, unspecified type (CMS/HCC); History of NV (myocardial infarction); BMI 28.0-28.9,adult; ASHD (arteriosclerotic heart disease); PVD (peripheral vascular disease) ([facility]/HCC); Smoker; Chest pain, unspecified typeStart: 08-10-2023 End: 24-01-4835aidpgtxfnaVqvajsvAdalid Will MDFacility:PM [place] Start: 07-07-2023 End: 62-15-9455zilkcqdwoiPUOBGTAQ E PERRYFacility:FTMCStart: 06-18-2023 End: 71-91-2689ceetgalbotQLGURJX S SHELDONProMedica Defiance Regional Hospitaltart: 06-18-2023 End: 35-06-1783Quabzqrpb Result EncounterGeneric External Data ProviderNOMS External Department UnsolicitedStart: 06-18-2023 End: 63-55-5564Fmokpqsrv Result EncounterGeneric External Data ProviderNOMS External Department UnsolicitedStart: 06-18-2023 End: 22-43-0495Ltgrycoeoy hospital visit by Mimi Jama [facility]Start: 06-12-2023 End: 21-49-0010jpfsbmfxiqMXBGBED G MENDISFacility:[facility] Hospitaltart: 06-12-2023 End: 89-11-3778Qhpbkk outpatient new 45 minutesBilal Conor Reynolds MD Work Phone: [facility] InstituteComment on above:Spondylolisthesis of lumbar region (Primary Dx)Start: 06-04-2023 End: 88-62-1553Iodjqn consultation new/estab patient [address] Grayson DO Work Phone: uh [facility] NhrmcComment on above:Hypertension, unspecified type; Stage 3 chronic kidney disease, unspecified whether stage 3a or 3b CKD (CMS/HCC); Mixed hyperlipidemia; Bilateral carotid artery disease, unspecified type (CMS/HCC); Smoker; Chest pressureStart: 05-21-2023 End: 04-39-2138ejyjzvzvuaAC Shaikh Fawwad Work Phone: [facility] Work Phone: Start: 05-21-2023 End: 65-14-9377Efhxlcr encounter procedureMD Shaikh Dotty Work Phone: [facility]-Electrodiagnostics Work Phone: Start: 87-41-7627Yurrgwvct encounterG Jose Nazario MD Work Phone: Cancer Appts MCComment on above:Appointment ConfirmationStart: 91-30-7656ikukgnlwrsSvyekay Genoveva Nichols DO Work Phone: [facility] FHCStart: 98-50-0507Jfjynjr encounter procedurePhillip Genoveva Mendgentry DO Work Phone: Spbko MedicineComment on above:Consultation with a surgeonStart: 04-21-2023 End: 80-21-4936bmjyvrlievMGLFMPIG E PERRYFacility:FTMCStart: 04-21-2023 End: 92-21-8626Llu Drop offJENNIFER E BRITNI [facility] Start: 04-21-2023 End: 38-86-5819Rojuwex encounter procedureJENNIFER E BRITNI [facility] start: 85-79-3277Joviig outpatient visit 15 minutes Jose Martin Mena Vascular SurgeryStart: 04-16-2023 End: 74-74-3043ktjwzvadwjYQ Shaikh Donaldbooker Work Phone: [place] [employer] Other Start: 04-16-2023 End: 70-66-6445Xzfdrda encounter procedureMD Shaikh Storm Work Phone: [facility] VascularStart: 03-23-2023 End: 42-05-3633Otfaynbmw to same day surgery center Shubhamstaciagage Work Phone: [facility]-Interventional Radiology Work Phone: Start: 03-23-2023 End: 03-49-9674okchxmsvjuRW Shaikh Donaldbooker Work Phone: [facility] Work Phone: Start: 03-12-2023 End: 84-60-4229yybiwxajeuMgqstwh [place] Other [place] [employer] Other Start: 96-68-7506Empqmw outpatient visit 25 minutes Jose Martin Mena Vascular SurgeryStart: 00-09-4806Rrrbsihqo encounterAbdbalta Henning NephrologyStart: 03-09-2023 End: 88-32-4712snaaxvyiplQQ Shaikh Donaldbooker Work Phone: [facility] Work Phone: Start: 03-09-2023 End: 53-76-4457Qvmovph encounter procedureMD Shaikh Donaldbooker Work Phone: [facility]-Lab [facility] [place] Work Phone: Start: 03-05-2023 End: 93-24-9573rwbgtquvxsJQ Shaikh Donaldbooker Work Phone: [facility] Work Phone: Start: 03-05-2023 End: 16-38-5694Rptumch encounter procedureMD Shaikh Donaldbooker Work Phone: [facility]-Ultrasound [place] Work Phone: Start: 03-04-2023 End: 87-51-0154dztzdfnqbiRJ Shaikh Donaldbooker Work Phone: [facility] Work Phone: Start: 03-04-2023 End: 14-18-0959Siiklcs encounter procedureMD Shaikh Dotty Work Phone: [facility]-Ultrasound [facility] [place] Work Phone: Start: 02-20-2023 End: 28-06-8807Cnzmiabqt to same day surgery centerMD Shaikh Storm Work Phone: [facility]-Surgery Center Main CampusStart: 02-18-2023 End: 60-06-0790reoclunyvqRpdhfl Ruttino Other [facility] [employer] Other Start: 06-77-3567Qbefoc outpatient new 60 minutes Bonnie Moyer Vascular SurgeryStart: 02-11-2023 End: 34-01-0933Wfyauen encounter procedureJEDANNI JAMES [facility] start: 02-06-2023 End: 54-57-7769yzacpyamyjMV Shaikh Dotty Work Phone: [facility] Work Phone: Start: 02-06-2023 End: 65-43-8908Hvqnyrao ReferredMD Shaikh Storm Work Phone: [facility] Sfb-Fvi-Ttwcaxsm Testing Work Phone: Start: 02-06-2023 End: 37-82-8851Jczsuxt encounter procedureMD Shaikh Storm Work Phone: [facility] Jue-Pnl-Nntmswzd Testing Work Phone: Start: 93-16-3957Awfxrqmwa encounterConstance BROWN Hematology/OncologyComment on above:Social Work ServicesStart: 01-19-2023 End: 85-45-0791Jbybned encounter procedurePhijessie Genoveva Nichols DO Work Phone: Spine MedicineComment on above:Spinal stenosis, lumbar region with neurogenic claudication (Primary Dx); Foraminal stenosis of lumbar region; Peripheral artery disease (HCC); Prostate cancer (HCC)Start: 47-84-6393Onlmyamhw encounterPhillfloyd Genoveva Nichols DO Work Phone: [phone] InstituteComment on above:Orders; AppointmentStart: 01-09-2023 End: 56-05-2156tuvpqvzztdGJ Shaikh Elainegage Work Phone: [facility] Work Phone: Start: 01-09-2023 End: 42-80-3501Flnguxn encounter procedure Shaikh Donaldbooker Work Phone: [facility]-Lab [facility] [place] Work Phone: Start: 87-05-5406Vhjpqhhpe encounterG Jose Nazario MD Work Phone: Radiation OncologyComment on above:OrdersStart: 08-79-3358Ipvapeqqu encounterMepina Chamberlain RNFV INTERVENTIONAL RADIOLOGYComment on above:Patient Question; AppointmentStart: 12-03-2022 End: 44-26-8926Czboubj encounter procedureCLAIRE AJMES [facility] start: 00-21-4446Uguweabna encounterGenoveva Nazario MD Work Phone: Cancer Appts MCComment on above:Referral Information Start: 11-18-2022 End: 53-17-1059gqwojhwmytHlqxt Tani TRISTAN Work Phone: Hematology/OncologyComment on above:Prostate cancer (HCC); Stage 3 chronic kidney disease, unspecified whether stage 3a or 3b CKD (HCC) Start: 11-18-2022 End: 29-63-1080Ohjsdkx encounter procedureGenoveva Nazario MD Work Phone: Radiation OncologyComment on above:History of prostate cancer (Primary Dx); Spinal arthritis; Spinal stenosis of lumbar region, unspecified whether neurogenic claudication presentStart: 10-28-2022 End: 77-24-4363aytvntdlttKFYEWD Geri ELAINEWAMELONIEacility:Q4Qclzk: 10-09-2022 End: 55-47-0352rfsfvtilvlSMBZMLFODNKK LAKSHMIPATHY .Facility:K2Mrtha: 07-15-2022 ambulatoryGEORGE MOUKARBELFacility:G3Ygted: 76-57-9845Gjlesopqh encounterLori Ladarius LSWHematology/OncologyComment on above:Social Work ServicesStart: 06-05-2022 End: 88-41-7403Fvbynas encounter procedureLab/[place] Jama Work Phone: Radiation OncologyComment on above:Urinary tract infection without hematuria, site unspecified (Primary Dx)Start: 05-15-2022 Telephone encounterG Jose Nazario MD Work Phone: Radiation OncologyComment on above:Results; AppointmentStart: 05-15-2022 End: 15-25-8160gcondnglmaXM HOSEA OLIVA .Facility:X0Plgzr: 05-09-2022 End: 39-00-3899iieodxvvdgSO Shaikh Fawwad Work Phone: [facility] Work Phone: Start: 05-09-2022 End: 62-68-6178Cijuaat encounter procedureMD Shaikh Storm Work Phone: [facility] C[facility]-Lab Main CampusStart: 93-46-1508Jlcwvj WorkLori Ladarius BARAJASematology/OncologyStart: 04-23-2022 End: 70-36-4086ulbhhzgkldBYMireya Storm Work Phone: [facility] Work Phone: Start: 04-23-2022 End: 35-54-1987Pscjpbz encounter procedureMD Shaikh Dotty Work Phone: [facility] Main CampusStart: 45-79-8372Npwrgiffb Oncology NoteG Jose Nazario MD Work Phone: Radiation OncologyComment on above:Completion Note Start: 04-21-2022 End: 89-44-2565Vwqdygx encounter procedureG Jose Nazario MD Work Phone: Radiation OncologyComment on above:Malignant neoplasm of prostate (HCC) (Primary Dx)Start: 04-14-2022 End: 04-03-3645Tqpjltn encounter procedureGenoveva Nazario MD Work Phone: Radiation OncologyComment on above:Malignant neoplasm of prostate (HCC) (Primary Dx)Start: 04-07-2022 End: 96-81-4900Astzeqi encounter procedureGenoveva Nazario MD Work Phone: Radiation OncologyComment on above:Malignant neoplasm of prostate (HCC) (Primary Dx)Start: 03-31-2022 End: 21-79-7478Pgyxef WorkLori Ladarius BROOKSWHematology/OncologyComment on above: Malignant neoplasm of prostate (HCC) (Primary Dx)Start: 03-27-2022 End: 71-05-1947Dchezea encounter procedureLab/Bernice Jama Work Phone: Radiation OncologyComment on above:Malignant neoplasm of prostate (HCC)Start: 03-24-2022 End: 05-05-4213Makjqli encounter procedureGenoveva Nazario MD Work Phone: Radiation OncologyComment on above:Malignant neoplasm of prostate (HCC) (Primary Dx)Start: 00-74-4243Mmzlabtaw encounterGenoveva Nazario MD Work Phone: Radiation OncologyComment on above:OrdersStart: 03-18-2022 End: 23-86-2055Wrwtezx encounter procedureGenoveva Nazario MD Work Phone: Radiation OncologyComment on above:Malignant neoplasm of prostate (HCC) (Primary Dx)Start: 03-13-2022 End: 08-94-8748ejrgpmvhwoXQ HOSEA S OLIVA .Facility:W6Juvqw: 13-62-0126Gaciurl encounter procedureGenoveva Nazario MD Work Phone: SANDUSKYStart: 49-11-7555Kbezknbnf Oncology NoteG Jose Nazario MD Work Phone: Radiation OncologyComment on above:Treatment Planning Start: 03-12-2022 End: 20-09-0733Ocsimv WorkLori Ladarius LSWHematology/OncologyStart: 03-04-2022 Telephone encounterLori Ladarius LSWHematology/OncologyComment on above:Social Work ServicesStart: 03-03-2022 End: 46-97-6963Svbwqlh encounter procedureG Jose Nazario MD Work Phone: Radiation OncologyComment on above:Malignant neoplasm of prostate (HCC) (Primary Dx)Start: 09-60-3296Pkqckjaze encounterG Jose Nazario MD Work Phone: Radiation OncologyComment on above:Patient Update; AppointmentStart: 52-27-6683lweeiqcosyNesbtlyk:09732Glmyi: 02-13-2022 End: 50-34-4174Fnkxyqg encounter procedureZeinab Justice [facility] Start: 02-11-2022 End: 47-56-2933vmklohtklbNG HOSEA S OLIVA .Facility:Q2Jpgxh: 04-91-0547Ugrcxlqzd for preprocedural laboratory examinationDR HOSEA S OLIVA .[facility] Start: 44-60-4629Eqlvukqhr encounterG Jose Nazario MD Work Phone: Radiation OncologyComment on above:Patient Update Start: 02-07-2022 End: 03-72-4166mexvhrwdrnZN HOSEA S OLIVA .Facility:N1Hqchc: 02-07-2022 End: 58-33-7546Fubwbrxpl for preprocedural laboratory examinationDR HOSEA S OLIVA .Facility:T7Akokj: 27-37-5785crbcsyawyeVA HOSEA OLIVA .Facility:O8Dsrhx: 01-30-2022 End: 83-91-9947jkxchihprbKYMYU QADIRFacility:K9Tmznq: 01-23-2022 End: 02-55-2924fmgihrhkxaRYEI SOLIS .Facility:C5Slnro: 01-07-2022 End: 72-44-8106pgfyeectjeML HOSEA OLIVA .Facility:S8Eyfgl: 12-26-2021 End: 45-55-3991dfvbfaxxxgZZAQ SOLIS .Facility:J1Vtihd: 70-62-0761Sejkzulzg encounterG Jose Nazario MD Work Phone: Radiation OncologyComment on above:Patient Update Start: 12-17-2021 End: 98-19-9109oopyjifxobDK HOSEA OLVIA .Facility:F4Uzgol: 12-12-2021 End: 21-96-4299dviutijomrUUBB SOLIS .Facility:J8Kdnof: 12-10-2021 End: 42-13-6930Dhkmwdh encounter procedureG Jose Nazario MD Work Phone: Radiation OncologyComment on above:Malignant neoplasm of prostate (HCC) (Primary Dx)Start: 11-04-2021 End: 21-79-6911Vtsryaw encounter procedureBarbara JOHNSTON [facility] start: 10-24-2021 End: 01-79-2487iofrdapwyqThorq Vivian Other [employer] Other Start: 38-93-5937Ngwptx outpatient new 45 minutesAbdul QadirFPG Nephrology Rene Procedures DateProcedureProcedure DetailPerforming ClinicianStart: 12-68-1675Hofswyysdtmnp resection of bladder neoplasmBarbara JOHNSTON Start: 41-82-4320Am lumbar spine w/o contrast material Generic External Data ProviderStart: 92-65-3680NNWB CBC WITH PLATELET NO DIFFERENTIALGeneric External Data ProviderStart: 20-38-6717ZCG PSA SERPL-MCNC Generic External Data ProviderStart: 82-40-0662Zetcwm-up visitFollow-upALLISON OVITTStart: 50-52-7971Nmuuw cultureZuleykac Bailey MAK Work Phone: Start: 14-47-8486Exfls culturePHYSICIAN NO FAMILY Start: 10-39-3424Jcbluwhri on backPatrick Rescale Start: 76-26-1547Psf routine ecg w/least 12 lds w/i&r Chaim S Kenan 5o9 Work Phone: Start: 85-17-4886WJKQNCN STRESS TESTWILLMARKIE GRAYSON Start: 51-95-0377Ol strs tst xers&/or rx cont ecg trcg onlyWillmarkie Grayson 5o9 Work Phone: Start: 14-59-3972RIWIFQC STRESS TEST EXERCISE (CARD) Generic External Data ProviderStart: 08-13-0676Mve routine ecg w/least 12 lds w/i&rWilliam S Kenan ALBA Work Phone: Start: 23-49-5385Pohpw brachial pressure indexTX Shaikh Dotty Work Phone: Start: 13-33-8642Ippta limb angiographyTX Shaikh Dotty Work Phone: Start: 13-18-1179Psojj cultureTX Shaikh Dotty Work Phone: Start: 86-23-0684Admhr volume recorder plethysmography MD Shaikh Storm Work Phone: Start: 34-45-4281Nklkxky ultrasonography of bilateral carotid arteriesTX Shaikh Dotty Work Phone: Start: 08-48-3964LI pre/post mri xrayMD Shaikh Bennettbooker Work Phone: start: 38-35-7450JS CAT/MRI W/ IV SEDATION (Not Applicable)MD Shaikh Storm Work Phone: Start: 18-68-1362UMY of lumbar spine with contrastMD Shaikh Storm Work Phone: Start: 93-93-6734Zsank beam external beam radiation therapyCLAIRE JAMES Start: 03-02-8192Shrgt count complete auto&auto difrntl wbcG Jose Nazario MD Work Phone: Start: 93-28-6251Kgmigrhpcoqoh prostatectomyNeoChord Start: 26-02-8285Vhglkyhficw biopsy of prostate using ultrasound guidanceConversion Sound Start: 93-73-9828Gwgeoihanixsk cystoscopyPaMedeFile International Bilateral cataracts (disorder)CLAIRE JAMES ColonoscopyNeoChord EndarterectomyCLAIRE JAMES Procedure on backConversion Sound Plan of Treatment DateCare ActivityDetailAuthorStart: 83-45-8926Zvjpguvk ScreeningDiabetes ScreeningWVUMedicine Barnesville Hospitaltart: 18-30-7234Vfwnkxqs ScreeningDiabetes Screening [facility]: 97-39-4986jbwrupkmjcWkuhjcwlvaLjtzoesz:EU BellevueStart: 08-30-2025 End: 75-96-9102Chjjubn encounter ckkkjuzrb45/01/2026 10:00 AM EDT Office Visit [facility] [address] [facility] [address] [place] [address] Chaim Grayson, [address] [place] [address] [facility]: 04[facility]25 End: 55-36-0803Ecxvxiym specific Ag [Mass/volume] in Serum or PlasmaPROSTATE- SPECIFIC ANTIGEN DIAGNOSTIC Lab Routine Cancer of prostate w/med recur risk (T2b-c or Nicola 7 or PSA 10-20) (HCC) Expected: 04/20/2025, Expires: 07/20/2025[facility] Work Phone: Comment on above:Expected: 04/20/2025, Expires: 07/20/2025Start: 04-20-2025 End: 62-74-3978Bpzyoif encounter hutiwasot62/20/2025 9:45 AM EST Office Visit Rad[facility] Oncology [address] [place] [address] Genoveva Nazario MD [address] [place] [address] [place] [address] 3 month follow upRadiation OncologyComment on above:3 month follow upStart: 57-74-7188XacvxhinqKettering Health [facility] Start: 12-14-2024 End: 97-36-9007Sqjvszey specific Ag [Mass/volume] in Serum or PlasmaPROSTATE- SPECIFIC ANTIGEN DIAGNOSTIC Lab Routine Prostate cancer (HCC) Expected: 12/14/2024, Expires: 03/15/2025[facility] Work Phone: Comment on above:Expected: 12/14/2024, Expires: 03/15/2025Start: 12-13-2024 End: 45-14-4420Ghuzctj encounter /15/2025 1:15 PM EDT Office Visit Radiation Oncology [address] [place] [address] Genoveva Nazario MD [address] [place] [address] 1 yr rvRadiation OncologyComment on above:1 yr rvStart: 07-09-2025Medicare Annual Wellness (AWV)Medicare Annual Wellness (AWV)[facility] HealthcareStart: 12-06-2024 End: 43-95-2538Snrruhk encounter nzwayqlhb60/08/2025 1:00 PM EDT Office Visit [facility] [address] [place] [address] LabNortMyMichigan Medical [facility] LaboratoryComment on above:LabStart: 35-08-5130Duflpvwz blood countHemoglobin/HematocritWVUMedicine Barnesville Hospitaltart: 04-91-8267Xzwqmrzcjc measurementSerum CreatininePremier Health [facility] Start: 09-29-2024 End: 92-21-0026Naxvxcl encounter zihughgjv79/01/2025 10:00 AM EDT Office Visit [facility] [address] [place] [address] Nasir Ward, VALENTIN [address] [place] [address] [facility] FMStart: 08-18-2024 End: 34-85-1190Azevggv encounter cygrkgosi22/20/2025 10:00 AM EDT Office Visit [facility] [address] [facility] [address] [place] [address] Chaim Grayson, [address] [facility] [address] [place], [place] [address] [facility]Start: 89-63-1052Yhyloicw identified in Urine by CultureUrine CultureGlenbeigh Hospitaltart: 08-10-2024 Urine cultureGlenbeigh Hospitaltart: 07-13-2024 End: 82-90-1751Vxqavoj encounter procedureNOMS CWM FMComment on above:Arrived Start: 14-93-9306Ajbfekcznt measurementSerum CreatinineWVUMedicine Barnesville Hospitaltart: 24-37-1177Ctoalxy Directive DiscussionAdvance Directive DiscussionWVUMedicine Barnesville Hospitaltart: 01-01-2025Medicare Advantage Annual Wellness VisitMedicare [facility] Annual Wellness VisitWVUMedicine Barnesville Hospitaltart: 04-21-2024 End: 19-95-5616Pgqfemm encounter procedureNOMS CWM FMComment on above:Arrived Start: 23-99-9502Mbxncqwo identified in Urine by CultureGlenbeigh Hospitaltart: 82-15-5542Fqhfk-19 Vaccine ( season)Covid-19 Vaccine ( season)[facility]: 39-77-5565Vdybduuht vaccinationInfluenza Vaccine (#1)[facility]: 01-20-2024 End: 05-00-2871Zgshfab encounter jzmdjxitj20/21/2024 6:00 PM EDT Office Visit [facility] [address] [place] [address] Nasir Ward, VLAENTIN [address] [place] [place] [address] Primary hypertension (CMS/HCC) (Primary Dx); Coronary artery disease involving caddo coronary artery of caddo heart without angina pectoris (CMS/HCC); Stage 3a chronic kidney disease (HCC) (CMS/HCC); Gastroesophageal reflux disease without esophagitisNOMS CWM FMComment on above:Primary hypertension (CMS/HCC) (Primary Dx); Coronary artery disease involving caddo coronary artery of caddo heart without angina pectoris (CMS/HCC); Stage 3a chronic kidney disease (HCC) (CMS/HCC); Gastroesophageal reflux disease without esophagitisStart: 43-48-3392Hdleu brachial pressure indexGlenbeigh Hospitaltart: 08-18-2023 End: 51-08-6532Lftscip encounter pksegyxqn81/19/2024 11:10 AM EDT Office Visit [address] [place] [address] Chaim Grayson DO [address] [facility] [address] [place], [place] [id number] [facility]: 07[facility]2023 End: 33-80-7778Jimrmkvz Syvvnup6407/08/2023 10:30 AM EST Clinical Support [address] [place] [address] [facility] Start: 06-04-2023 End: 29-64-4378Gimxgik aminotransferase [Enzymatic activity/volume] in Serum or Plasma by With P-5'-PAlanine Aminotransferase Lab Routine Hypertension, unspecified type Bilateral carotid artery disease, unspecified type (CMS/HCC) Expected: 06/04/2023 (Approximate), Expires: 06/04/2024[facility] Work Phone: Comment on above:Expected: 06/04/2023 (Approximate), Expires: 06/04/2024Start: 06-04-2023 End: 76-93-3483Whmzisxnn aminotransferase [Enzymatic activity/volume] in Serum or Plasma by With P-5'-PAspartate Aminotransferase Lab Routine Hypertension, unspecified type Bilateral carotid artery disease, unspecified type (CMS/HCC) Expected: 06/04/2023 (Approximate), Expires: 06/04/2024[facility]Park[facility] Work Phone: Comment on above:Expected: 06/04/2023 (Approximate), Expires: 06/04/2024Start: 06-04-2023 End: 55-03-0949Zqfyx metabolic 2000 panel - Serum or PlasmaBasic Metabolic Panel Lab Routine Hypertension, unspecified type Mixed hyperlipidemia Expected: 08/2023 (Approximate), Expires: 06/04/2024UnPark[facility] Work Phone: Comment on above:Expected: 06/04/2023 (Approximate), Expires: 06/04/2024Start: 06-04-2023 End: 89-48-9080Ccpuc 1996 panel - Serum or PlasmaLipid Panel Lab Routine Mixed hyperlipidemia Expected: 06/04/2023 (Approximate), Expires: 06/04/2024[facility] Work Phone: Comment on above:Expected: 06/04/2023 (Approximate), Expires: 06/04/2024Start: 06-04-2023 End: 73-73-9936JD Heart Perfusion W stress and W radionuclide IVNuclear Stress Test Cardiac Nuclear Medicine Routine Hypertension, unspecified type Bilateral carotid artery disease, unspecified type (CMS/HCC) Chest pressure Expected: 06/04/2023 (Approximate), Expires: 06/04/2025[facility] Service Area Work Phone: Comment on above:Expected: 06/04/2023 (Approximate), Expires: 06/04/2025Start: 67-41-2609Nczvgda Directive DiscussionAdvance Directive DiscussionWVUMedicine Barnesville Hospitaltart: 59-68-3073Sdufpvqbyq Health Screening Behavioral Health ScreeningWVUMedicine Barnesville Hospitaltart: 80-03-6465Suaboztkgd AssessmentDepression AssessmentWVUMedicine Barnesville Hospitaltart: 05-20-2023 End: 38-98-0785Vderymqb specific Ag [Mass/volume] in Serum or Plasma PSA/PROSTSPECAG DIAG Lab Routine History of prostate cancer Expected: 05/20/2023, Expires: 07/20/2023[facility] Work Phone: Comment on above:Expected: 05/20/2023, Expires: 07/20/2023Start: 34-52-5495Zywaazts blood countHemoglobin/HematocritWVUMedicine Barnesville Hospitaltart: 30-78-5274KYEVMETRAF/HEMATOCRITHEMOGLOBIN/HEMATOCRITWVUMedicine Barnesville Hospitaltart: 62-34-1575ZntlosdbhGlenbeigh Hospitaltart: 03-09-2023 Bacteria identified in Urine by CultureGlenbeigh Hospitaltart: 60-45-7321Fuxym volume recorder plethysmographyOhiohealth Start: 02-20-2023 End: 05-82-3893FmfqidmucGlenbeigh Hospitaltart: 28-26-3910Kziaj-19 Vaccine ( season)Covid-19 Vaccine ( season)[facility]: 07-66-5251Rzmrmbujq vaccinationWVUMedicine Barnesville Hospitaltart: 06-03-2022 End: 04-32-9434Vfbhuxvt identified in Urine by CultureURINE CULTURE Microbiology Routine Hematuria, unspecified type Malignant neoplasm of prostate (HCC) Expected: 06/03/2022 (Approximate), Expires: 08/03/2022[facility] Work Phone: Comment on above:Expected: 06/03/2022 (Approximate), Expires: 08/03/2022Start: 06-03-2022 End: 76-78-5027JO DIP B/OUA DIP B/O Lab Routine Hematuria, unspecified type Malignant neoplasm of prostate (HCC) Expected: 06/03/2022 (Approximate), Expires: 08/03/2022[facility] Work Phone: Comment on above:Expected: 06/03/2022 (Approximate), Expires: 08/03/2022Start: 95-42-9867VBEVQEF DIRECTIVE DISCUSSIONADVANCE DIRECTIVE DISCUSSIONWVUMedicine Barnesville Hospitaltart: 63-26-1946QDXQTNSYEF ASSESSMENT DEPRESSION ASSESSMENTWVUMedicine Barnesville Hospitaltart: 04-21-2022 End: 08-21-8452Oibfdbfe specific Ag [Mass/volume] in Serum or Plasma PSA/PROSTSPECAG DIAG Lab Routine Malignant neoplasm of prostate (HCC) Expected: 04/21/2022, Expires: 06/21/2022[facility] Work Phone: Comment on above:Expected: 04/21/2022, Expires: 06/21/2022Start: 03-27-2022 End: 34-01-4973IHX W Auto Differential panel - BloodCBC + DIFF Lab Routine Malignant neoplasm of prostate (HCC) Expected: 03/27/2022, Expires: 03/18/2023 [facility] Work Phone: Comment on above:Expected: 03/27/2022, Expires: 03/18/2023Start: 04-74-7735Hrtcvcbpl vaccinationINFLUENZA (#1)[facility] Start: 64-25-9213ZKVNTHO DIRECTIVE DISCUSSIONADVANCE DIRECTIVE DISCUSSION [facility]: 51-79-0844GSOWWCYSDM ASSESSMENTDEPRESSION ASSESSMENT [facility]: 50-00-5104MYUYE-19 VACCINE (3 - Booster for Moderna series)COVID-19 VACCINE (3 - Booster for Moderna series)[facility]: 66-39-3513MQIOQ-19 VACCINE (3 - Booster for Moderna series)COVID-19 VACCINE (3 - Booster for Moderna series)[facility]: 95-50-3110HRYDK-19 VACCINE (3 - Moderna series)COVID-19 VACCINE (3 - Moderna series)[facility]: 39-14-0352TKLLP-19 VACCINE (4 - Booster)COVID-19 VACCINE (4 - Booster)[facility]: 75-05-3248XOFJH-19 Vaccine (4 - Moderna series)COVID-19 Vaccine (4 - Moderna series)[facility] HospitalStart: 61-40-0752OFT High Risk: (Elderly (60+) or Population) (1 - 1-dose 75+ series)RSV High Risk: (Elderly (60+) or Population) (1 - 1-dose 75+ series)[facility]: 61-99-4914DKF Vaccine (1 - 1-dose 75+ series)RSV Vaccine (1 - 1-dose 75+ series)[facility]: 57-27-2326TPP Vaccine (1 - 1-dose 60+ series)RSV Vaccine (1 - 1-dose 60+ series)[facility]: 35-96-3175Awccaxzmb vaccinationLUNG CANCER SCREENINGWVUMedicine Barnesville Hospitaltart: 07-61-7166Buhsdknmnnnc Vaccine: 65+ Years (1 of 1 - PCV)Pneumococcal Vaccine: 65+ Years (1 of 1 - PCV)[facility]: 64-97-2321Aznbzvdve for malignant neoplasm of lungLung Cancer ScreeningWVUMedicine Barnesville Hospitaltart: 63-05-2735LRNDQQOD VACCINE (1 of 2)SHINGRIX VACCINE (1 of 2)[facility]: 40-64-2474Njxwhg Vaccines (1 of 2)Zoster Vaccines (1 of 2)[facility] Start: 55-00-8328TLPEGJSX SCREENDIABETES SCREENWVUMedicine Barnesville Hospitaltart: 1990 Diabetes ScreeningDiabetes ScreeningWVUMedicine Barnesville Hospitaltart: 1967 DTaP/Tdap/Td Vaccines (1 - Tdap)DTaP/Tdap/Td Vaccines (1 - Tdap)[facility] HospitalStlamar: 13-45-0039Eeiiyruejghe vaccinationPneumococcal Vaccine (1 of 2 - PCV)[facility]: 1964 Pneumococcal Vaccine: 50+ (1 of 2 - PCV)Pneumococcal Vaccine: 50+ (1 of 2 - PCV) [facility]: 14-64-7603Egqnmatljtbu Vaccine: 65+ Years (1 of 2 - PCV) Pneumococcal Vaccine: 65+ Years (1 of 2 - PCV)[facility] 1964 Urine microalbumin profileWVUMedicine Barnesville Hospitaltart: 08-73-7090Vljbn screening for proteinCKD: Urine Protein ScreeningUniversity [facility]als [facility]: 99-61-8521QSSUFM PCP TEAM CHRONIC DISEASE VISITANNUAL PCP TEAM CHRONIC DISEASE VISITWVUMedicine Barnesville Hospitaltart: 16-43-2186Bksuwml ScreeningAnxiety Screening [facility]: 29-23-1230Duozrevtpb measurementSerum CreatinineWVUMedicine Barnesville Hospitaltart: 81-45-2312Iowwcuyxlz ScreeningDepression ScreeningPremier Health [facility] Start: 84-07-3172WCUBXDSGK C SCREENINGHEPATITIS C SCREENINGPremier Health [facility] Start: 86-88-0378Rczascyzf C screeningHepatitis C ScreeningPremier Health [facility] Start: 62-52-3761WQVSG CREATININESERUM CREATININEWVUMedicine Barnesville Hospitaltart: 28-06-1276Dmucx depression screening assessmentDEPRESSION SCREENINGWVUMedicine Barnes[facility] Hospitaltart: 60-29-7953Bztgrvfpqxwg Vaccine: 65+ (1 - PCV)Pneumococcal Vaccine: 65+ (1 - PCV)[facility]: 03-77-7108Jbfpaebxexjw Vaccine: 65+ (1 of 2 - PCV)Pneumococcal Vaccine: 65+ (1 of 2 - PCV)[facility]: 1951 Pneumococcal Vaccine: 65+ Years (1 - PCV)Pneumococcal Vaccine: 65+ Years (1 - PCV)[facility] HospitalSt[facility]: 48-03-3039Lrjcbszijwzu Vaccine: 65+ Years (1 of 2 - PCV)Pneumococcal Vaccine: 65+ Years (1 of 2 - PCV)[facility] HospitalStart: 57-58-4244UGMKGTYQHYBO: 65+ (1 - PCV)PNEUMOCOCCAL: 65+ (1 - PCV)[facility]: 87-96-4251Tguie panelLipid PanelUniversity Hospitals [facility] Medical Center: 01-24-1946Medicare Annual Wellness VisitMedicare Annual Wellness Visit (AWV)[facility] HospitalCBC W Auto Differential panel - BloodCBC and differential Lab Routine Stage 3a chronic kidney disease (HCC) ([facility]) Ordered: 07/13/2024[facility] [place] Work Phone: Comment on above:Ordered: 07/13/2024omprehensive metabolic 2000 panel - Serum or PlasmaComprehensive metabolic panel Lab Routine Stage 3a chronic kidney disease (HCC) (CMS/HCC) Ordered: 07/13/2024[facility] HealthcareComment on above:Ordered: 07/13/2024T SIM PLANNING RADIATION ONCOLOGY CT SIM PLANNING RADIATION ONCOLOGY Radiology Routine Malignant neoplasm of prostate (HCC) Ordered: 03/03/2022[facility] Work Phone: Comment on above:Ordered: 03/03/2022 End: 18-32-5313Cbr spinal canal lumbar w/o & w/contr matrlMRI LUMBAR SPINE WO/W IVCON Radiology Routine Spinal stenosis of lumbar region, unspecified whether neurogenic claudication present 1 Occurrences starting 11/19/[address] [place] [address] Work Phone: Comment on above:1 Occurrences starting 11/19/2022 until 12/19/2023 End: 86-71-2164Rgj spinal canal lumbar w/o & w/contr matrlMRI LUMBAR SPINE WO/W IVCON Radiology Routine Spinal stenosis of lumbar region without neurogenic cl audication 1 Occurrences starting 11/21/[address] [place] [address] Work Phone: Comment on above:1 Occurrences starting 11/21/2022 until 12/21/2023 End: 76-93-5783Zbz spinal canal lumbar w/o & w/contr matrlMRI LUMBAR SPINE WO/W IVCON Radiology Routine Spinal stenosis of lumbar region, unspecified whether neurogenic claudication present 1 Occurrences starting 01/06/[address] [place] [address] Work Phone: Comment on above:1 Occurrences starting 01/06/2023 until 4Patient EducationAd[facility] Work Phone: Patient referralAdams County Regional [facility] Center [facility] Work Phone: Renal function 2000 panel - Serum or PlasmaFirelands Regional Medical CenterRenal function 2000 panel - Serum or [facility] HospitalRenal function 2000 panel - Serum or [facility] Immunizations Immunization DateImmunizationNotesCare PbqcovnuYmhguzmi91-56-9307LLYK-OrP-3 (COVID-19) mRNA-1273 vaccinePaharoldo JOHNSTON [facility]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 document. documented in this [facility] Work Phone: 1(423) [phone] Instructions* Patient Instructions* MIKKI Montejo - 08/30/2024 [...] we can help. You may also call [phone] MomNOW for free resources and assistance. documented in this [facility] Work Phone: [phone] NotePatient Education Urology Hematuria, Adult Hematuria is [...] these instructions at home: Medicines ??? Take csda-cjb-ajwxayn and prescription medicines only as told by [...] the blood stops without treatment. ??? Take vvyg-awu-cdagnww and prescription medicines only as told by your health care provider. ??? Drink enough fluid to keep your urine pale yellow. This information is not intended to replace advice given to you by your health care provider. Make sure you discuss any questions you have with your health care provider. Document Revised: 01/16/2021 Document Reviewed: 01/16/2021 [employer] Patient Education ? 2023 [employer].[facility] 08-18-2024 NoteSUBJECTIVE: Chief complaint: Return visit [...] been able to decrease his dose of [place], which he has been on for many years. He notes that when he tries to stop the [place] completely, he experiences increased pain in his [...] , Rfl: ergocalciferol (Vitamin D-2) 1.25 MG (62634 Units) capsule, Take 1,250 mcg by mouth 1 (one) time per week., Disp: , Rfl: HYDROcodone-acetaminophen ([place]) 7.5-325 mg tablet, 1 tablet., Disp: , [...] Reactions Ezetimibe GI intolerance Other reaction(s): Nausea/vomiting Kwmhjrg-Nrk-Pcl Reductase Inhibitors Other Muscle/Joint Pain Other Reaction(s): [...] bulk appropriate for age (more content not included)...[facility] 08-08-2024 NotePatient Education Urology Hematuria, Adult [...] these instructions at home: Medicines ??? Take vzgv-hxd-xyjkgqm and prescription medicines only as told by [...] the blood stops without treatment. ??? Take jivv-dej-ivwculf and prescription medicines only as told by your health care provider. ??? Drink enough fluid to keep your urine pale yellow. This information is not intended to replace advice given to you by your health care provider. Make sure you discuss any questions you have with your health care provider. Document Revised: 01/16/2021 Document Reviewed: 01/16/2021 [employer] Patient Education ? 2023 [employer] [facility] 07-[facility]-2024 Hospital Discharge instructions Additional Instructions Begin taking topical antibiotic as prescribed. Encourage you follow-up with your steel layout worker within 24 to 48 hours to ensure proper healing. It is very important that you follow up with your primary care provider in the next 2-3 days unless instructed to do otherwise. If you do not have a primary care provider, you can contact [facility] and ask about being established for primary care services. If you require specialist follow up, such as with an orthopedic physician, revenue officer, urologist, or other medical specialty, you should [...] should first take Tylenol or ibuprofen available gjeg-cle-xtfckho. Medications, if prescribed to treat pain from [...] ED or if you have any other concernsReg[facility] Work Phone: 1([phone]) 288-640602-12-2025 History of Present illness Narrative* Nasir Ward NP - 07/13/2024 1:50 PM ESTAssociated Problem(s): Hypertension ([facility]) Currently taking amlodipine, valsartan. Follows with Cardiology [...] for Lumbar Stenosis. Recently reduced dosage of [place]. Feels symptoms are well controlled. Continue current [...] CHOLESTEROL mg/dL 16 CHOL/HDL RATIO <5.0 3.6 [facility] CKD: Follows with Nephrology- Dr. Thakkar Most Recent eGFR: 47 Creatinine: 1.51 Avoid nephrotoxic agents. Monitor closely. Following with Pain Management for Lumbar Stenosis. Recently reduced dosage of [place]. Feels symptoms are well controlled. Continue current [...] for Lumbar Stenosis. Recently reduced dosage of [place]. Feels symptoms are well controlled. Continue current regimen as directed by PM. documented in this encounterSoutheast Missouri HospitalQtopybsrim85-05-1900 Evaluation note* Diagnosis Primary hypertension (CMS/HCC)- Primary Unspecified essential hypertension Stage 3a chronic kidney disease (HCC) ([facility]/HCC) Mixed hyperlipidemia ([facility]/HCC) Mixed hyperlipidemia Claudication ([facility]/HCC) Unspecified peripheral vascular disease Peripheral vascular disease ([facility]/HCC) Unspecified peripheral vascular disease Bradycardia Other specified cardiac dysrhythmias Prostate cancer (CMS/HCC) Malignant neoplasm of prostate Peripheral vascular disease (CMS/HCC)- Primary Unspecified peripheral vascular disease Stage 3a chronic kidney disease (HCC) ([facility]/HCC) Primary hypertension ([facility]/HCC) Unspecified essential hypertension Cerebrovascular accident (CVA), unspecified mechanism ([facility]/HCC) Tobacco abuse Tobacco use disorder Chronic kidney disease, stage 3b (N18.32) Peripheral vascular disease, unspecified (I73.9) Peripheral vascular disease, unspecified Malignant neoplasm of prostate (C61) Malignant neoplasm of prostate Coronary artery disease involving caddo coronary artery of caddo heart without angina pectoris ([facility]/HCC) H/O prostate cancer Mixed hyperlipidemia ([facility]/HCC) Mixed hyperlipidemia Chronic bilateral low back pain with bilateral sciatica Coronary artery disease involving caddo coronary artery of caddo heart without angina pectoris ([facility]/HCC)- Primary PAD (peripheral artery disease) ([facility]/HCC) Unspecified peripheral vascular disease Primary hypertension ([facility]/HCC) Unspecified essential hypertension Stage 3a chronic kidney disease (HCC) ([facility]/HCC) Lumbar stenosis with neurogenic claudication Mixed hyperlipidemia ([facility]/HCC) Mixed hyperlipidemia Elevated random blood glucose level Unintentional weight change Gastroesophageal reflux disease without esophagitis Esophageal reflux Coronary artery disease involving caddo coronary artery of caddo heart without angina pectoris (CMS/HCC)- Primary Stage 3a chronic kidney disease (HCC) ([facility]/HCC) Lumbar stenosis with neurogenic claudication Primary hypertension ([facility]/HCC)- Primary Unspecified essential hypertension Coronary artery disease involving caddo coronary artery of caddo heart without angina pectoris (CMS/HCC) Stage 3a chronic kidney disease (HCC) ([facility]/HCC) Gastroesophageal reflux disease without esophagitis Esophageal reflux Tobacco abuse Tobacco use disorder Prostate cancer ([facility]/HCC) Malignant neoplasm of prostate Benign prostatic hyperplasia with lower urinary tract symptoms, symptom details unspecified Mixed hyperlipidemia ([facility]/HCC)- Primary Mixed hyperlipidemia Primary hypertension ([facility]/HCC) Unspecified essential hypertension Stage 3a chronic kidney disease (HCC) ([facility]/HCC) Stage 3a chronic kidney disease (HCC) ([facility]/HCC)- Primary Lumbar stenosis with neurogenic claudication Mixed hyperlipidemia (CMS/HCC) Mixed hyperlipidemia Primary hypertension (CMS/HCC) Unspecified essential hypertension documented in this encounter [facility] [place] [id number] History of Present illness Narrative* Nasir Ward [...] 04/21/2024 11:42 AM ESTAssociated Problem(s): HLD (hyperlipidemia) ([facility]/HCC) Currently taking Prvastatin 40mg Denies any [...] CHOLESTEROL mg/dL 16 CHOL/HDL RATIO <5.0 3.6 [facility] CKD: Follows with Nephrology. Avoid nephrotoxic agents. Monitor closely. Following with Pain Management for Lumbar Stenosis. Recently had surgery. Pt reports he recently had blood work done in January- nothing new in [facility]. Will request labs from Dr. Thakkar. [...] Denies any myalgias. Continue current regimen. Hypertension ([facility]/HCC) Currently taking amlodipine, valsartan. Follows with Cardiology Does not check BP at home; Denies orthostatic changes, dizziness, cough, shortness of breath, swelling in extremities. Continue current regimen. Given BP log, advised pt to record BP and bring log back with them to next visit. Stage 3 chronic kidney disease (HCC) (CMS/HCC) Follows with Nephrology. Avoid nephrotoxic agents. Monitor closely. documented in this encounterSoutheast Missouri HospitalNjtabijdef43-10-6029 Hospital Discharge instructions Patient Education 04/18/2024 12:09:27 [...] Treatment for this condition includes: Antibiotic medicine. Dtsg-eyj-myqoice medicines to treat discomfort. Drinking enough water [...] Follow these instructions at home: Medicines Take dzye-hjm-msuuahk and prescription medicines only as told by [...] provider. Document Revised: 12/23/2020 Document Reviewed: 12/28/2020 [employer] Patient Education 2023 [employer]. Follow Up Care 09/18/2023 12:00:10 With:PRESTON MAK, Barbara Warner, URL Address: [facility] [address] [place] [address]- [phone] When: Unknown Comments:1 yr w/ PSA [facility] 11-18-2024 NotePatient Education Obstetrics and [...] this condition includes: ??? Antibiotic medicine. ??? Snkf-clm-afosrxb medicines to treat discomfort. ??? Drinking enough [...] these instructions at home: Medicines ??? Take lgum-pld-mmiyfbg and prescription medicines only as told by [...] Make sure you di (more content not included)...[facility]09-19-2024 Telephone encounter Note* Telephone Encounter - Sugar Wellington MA - 02/18/2024 9:49 AM EDT Refill request from [facility] - [facility] [place] [id number] Miscellaneous Notes* Telephone Encounter - Sugar Wellington MA - 02/18/2024 9:49 AM EDT Refill request from [facility] - documented in this encounterSoutheast Missouri HospitalHquxmvflgy63-53-2166 Telephone encounter Note* Telephone Encounter - Sugar Wellington MA - 02/02/2024 11:29 AM EDT PT INTO OFFICE AND SAID ALL OTHER RXS WERE SENT IN FOR 90 DAY SUPPLIES BUT AMLODIPINE WASN'T SENT IN? CAN YOU SEND IN A DAY BEFORE THURSDAY THEY ARE LEAVING OUT OF STATE FOR THREE MONTHS. -SCR [facility] [place] HospitalYumoquezvt14-61-3909 Miscellaneous Notes* Telephone Encounter - Sugar Wellington MA - 02/02/2024 11:29 AM EDT PT INTO OFFICE AND SAID ALL OTHER RXS WERE SENT IN FOR 90 DAY SUPPLIES BUT AMLODIPINE WASN'T SENT IN? CAN YOU SEND IN A BEFORE THURSDAY THEY ARE LEAVING OUT OF STATE FOR THREE MONTHS. -SCR documented in this encounterSoutheast Missouri HospitalPjjvzilrem71-76-9100 History of Present illness Narrative* Nasir Ward [...] Problem(s): Stage 3 chronic kidney disease (HCC) ([facility]/HCC) Follows Nephrology Dr. Thakkar CKD stage 3. Continue to monitor and avoid nephrotoxic agents. * Nasir Ward NP - 01/20/2024 6:42 PM EDTAssociated Problem(s): Coronary artery disease involving caddo coronary artery of caddo heart with out angina pectoris (CMS/HCC) Follows [...] avoid nephrotoxic agents. Coronary artery disease involving caddo coronary artery of caddo heart without angina pectoris (CMS/HCC) Follows Cardiology [...] very well. Denies complaints. documented in this encounterSoutheast Missouri HospitalTrsmmqtzjy16-16-5698 Instructions* Patient Instructions* Nasir Ward NP - 01/20/2024 6:00 PM EDT Referral sent to Dr. Bryant- Urology; They will call you! Call if you need anything! documented in this encounterSoutheast Missouri HospitalHdpdduwlek68-87-6298 Evaluation note* Diagnosis Prostate cancer (HCC)- Primary Malignant neoplasm of prostate Stage 3 chronic kidney disease, unspecified whether stage 3a or 3b CKD (HCC) documented in this encounter [facility]07-16-2024 Nurse Note* Diane Parada LPN - 12/15/2023 2:36 PM EDT AUA= 13 [facility]07-16-2024 Nurse Note* Daine Parada LPN - 12/15/2023 2:36 PM EDT AUA= 13 documented in this encounterPremier Health [facility]07-[facility] History of Present illness Narrative* Genoveva Nazario MD - 12/15/2023 2:30 PM EDT Radiation Oncology - Follow Up Note PATIENT NAME: Yesenia Broussard PATIENT DIAGNOSIS: Prostate adenocarcinoma, initial PSA 9.95, biopsy Suring score 3 + 4 = 7 (grade [...] Genoveva Nazario MD cc: Shaikh Dotty [address] [place] [address] documented in this encounterPremier Health [facility]04-[facility] Hospital Discharge instructions Patient Education 09/18/2023 11:40:21 [...] to keep your urine pale yellow. ?Take gmaj-brp-qhvirsw or prescription medicines. ?Eat foods that are high in fiber, such as beans, whole grains, and fresh fruits and vegetables. ?Limit foods that are high in fat and processed sugars, such as fried or sweet foods. General instructions Take vhqj-udi-hzsaznw and prescription medicines only as told by [...] the muscles that help control urination. Take qlqo-kru-qjvmbjs and prescription medicines only as told by your health care provider. Contact a health care provider if your symptoms do not improve or get worse. This information is not intended to replace advice given to you by your health care provider. Make sure you discuss any questions you have with your health care provider. Document Revised: 12/21/2020 Document Reviewed: 12/21/2020 [employer] Patient Education 2022 [employer]. Follow Up Care 07/07/2023 09:49:12 With:PRESTON MAK, Barbara Warner, URL Address: [address] [place], [place] [id number]- When: Unknown [facility] 03-19-2024 History of Present illness Narrative* Chaim Davison Kenan, DO - 08/18/2023 11:10 AM EDT Subjective Yesenia Broussard is a 78 y.o. male Chief Complaint Follow-up 78-year-old gentleman returns for follow-up following recent imaging, stress perfusion imaging is reviewed and revealed normal left ventricular function and normal perfusion exam without evidence forischemia or infarction and preserved ejection fraction Details of his history are noted for prior inferior NV with revascularization of the RCA in [place] followed by bilateral carotid endarterectomies. More recently [...] normal. Judgment: Judgment normal. Allergies Ezetimibe and Ihuztso-lsa-ipk reductase inhibitors Current Medications Current Outpatient Medications: [...] , Rfl: ergocalciferol (Vitamin D-2) 1.25 MG (95820 UT) capsule, Take 1 capsule (1,250 mcg) by mouth 1 (one) time per week., Disp: , Rfl: gabapentin (Neurontin) 100 mg capsule, Take 1 capsule (100 mg) by mouth 2 times a day., Disp: , Rfl: HYDROcodone-acetaminophen ([place]) 7.5-325 mg tablet, Take 1 tablet by [...] Follow Up In Cardiology 4. History of NV (myocardial infarction) 5. BMI 28.0-28.9,adult 6. ASHD (arteriosclerotic heart disease) 7. PVD (peripheral vascular disease) ([facility]) 8. Smoker 9. Chest pain, unspecified type Scribe Attestation By signing my name below, IJaky JAH Scribelbert attest that this documentation has been [...] and plan. documented in this encounterSelect [facility] Work Phone: 1(428) 459-854303-19-2024 Instructions* Patient Instructions* Shahla Foster MA - [...] your visit. documented in this encounterSelect Medical [facility] Work Phone: 1(522) 964-106301-14-2024 NoteHNO ID: [id number] Author: KODI REYNOLDS MD Service: ? Author [...] pleasant 77-year-old male who recently moved from [place] to [place]. He reports longstanding history of back and [...] 0 0 0 PHQ- (more content not included)...[facility] HospitalPtkinrcj88-75-0246 History of Present illness Narrative* Kodi Reynolds [...] pleasant 77-year-old male who recently moved from [place] to [place]. 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 Yes Do you have concerns about falling or have you fallen in the past year? No Do you have difficulty performing or completing routine daily living activities? No Bert Harper documented in this encounterCleveland Golfvc13-82-4015 NoteHNO ID: [id number] Author: ?, ?, ? Service: ? Author [...] heat Medications: See medication reconciliation list in [facility] MEDICATIONS: Hydrocodone, Gabapentin 2017 back surgery with a 50-70% relieve PT done 2021 How is your appetite?: normal Do you feel safe in the home? Yes Do you have concerns about falling or have you fallen in the past year? No Do you have difficulty performing or completing routine daily living activities? No [facility]01-04-2024 History of Present illness Narrative * Chaim Grayson, DO - 06/04/2023 9:50 AM EST Cardiology Consultation- New Consult Reason for referral: 77-year-old gentleman seen in cardiology consultation at the request of primary care physician Dr. Storm, for further evaluation regarding chest discomfort. Patient moved from [place] to the local area approximately 2 years ago. He has a history of previous inferior NV in the mid with revascularization of the RCA in [place] followed by stroke with subsequent bilateral carotid [...] ischemia given his risk factors and previous NV and revascularization on follow-up thereafterwards HPI: Yesenia Renteria is a 77 y.o. male Past Medical History: He has a past medical history of Abnormal ECG (05-20-2023), Cancer ([facility]) (07/07/2021), Chronic kidney disease, Coronary artery disease, Hypertension, Myocardial infarction ([facility]/HCC) (10/30/1996), and Stroke ([facility]) (01/31/12). Surgical History: He has [...] Alcohol use: Not Currently Allergies: Ezetimibe and Nitozzx-msz-pux reductase inhibitors Current Medications: Current Outpatient Medications: [...] , Rfl: ergocalciferol (Vitamin D-2) 1.25 MG (62281 UT) capsule, Take 1 capsule (1,250 mcg) by mouth 1 (one) time per week., Disp: , Rfl: HYDROcodone-acetaminophen ([place]) 7.5-325 mg tablet, Take 1 tablet by [...] of Kaya Grayson DO. documented in this [facility] Work Phone: 1(559) 398-995901-04-2024 Instructions* Patient Instructions* Yunier Mathur MA - [...] your visit. documented in this encounterSelect Medical [facility] Work Phone: 1(744) 922-487201-04-2024 Evaluation note* Diagnosis Hypertension, unspecified type Stage 3 chronic kidney disease, unspecified whether stage 3a or 3b CKD (CMS/HCC) Mixed hyperlipidemia Bilateral carotid artery disease, unspecified type (CMS/HCC) Smoker Tobacco use disorder Chest pressure Other chest pain documented in this encounter [facility] Work Phone: 1(480) 614-919412-20-2023 Miscellaneous Notes* Telephone Encounter - Claire Koroma - 05/20/2023 9:14 AM EST Margaret- records were not sent, so we shouldn't have to call and cancel. * Telephone Encounter - Diane Parada LPN - 05/20/2023 9:08 AM EST Mrs. Broussard called stating they contacted one of Dexter's previous physicians at [facility] spine clinic and he will arrange for Dexter to see [facility] neurosurgeon. Please cancel the referral to [facility] neuro[facility] perpatient request. Diane Parada RN * Telephone Encounter - Margaret Castle - 05/19/2023 2:11 PM EST Neelam when order is signed can you please send records to Dr Marvin at [facility] thank you! Facesheet in your box documented in this encounterPrem[facility]-2023 Miscellaneous Notes* Telephone Encounter - Julianna Yuan RN - 05/19/2023 10:45 AM EST Patient is requesting referral to Surgeon. He looks like had MRI of Lumbar spine on 02/20/2023 but no images in system. We do have report. documented in this encounterPremier Health [facility]11-21-2023 Hospital Discharge instructions Patient Education 04/21/2023 09:12:49 [...] Follow these instructions at home: Medicines Take praw-nzc-usjjmri and prescription medicines only as told by [...] provider. Document Revised: 08/14/2021 Document Reviewed: 08/14/2021 [employer] Patient Education 2022 [employer] Follow Up Care 02/11/2023 15:24:55 With:BRITNI ENCINAS CLAIRE Elbert, URL Address: [address] [place] [address] [phone] When: Unknown [facility] 11-16-2023 Evaluation note* Encounter Date Diagnosis Assessment [...] in 6 months with repeat surveillance ABIs. [employer] Other 10-23-2023 Procedure noteOhiohealth10-12-2023 Evaluation note* Encounter Date Diagnosis Assessment Notes [...] will schedule this in the near future. [employer] Other 09-20-2023 Evaluation note* Encounter Date Diagnosis [...] once again all his questions were addressed. [employer] Other 09-13-2023 Hospital Discharge instructions Patient Education [...] urethra. Follow these instructions at home: Take gxok-tnm-zhezqrz and prescription medicines only as told by [...] provider. Document Revised: 12/04/2021 Document Reviewed: 12/04/2021 [employer] Patient Education 2022 [employer]. Follow Up Care 01/05/2023 13:14:43 With:CLAIRE JAMES PA-C, URL Address: [address] [place] [address] When:Within 8 Week(s) [facility] 08-22-2023 Miscellaneous Notes* Telephone Encounter [...] Team tab: Yes Patient appears on the [employer] SW Report for a PHQ-9 score of [...] as appropriate. JENNIE Lange documented in this encounterPremier Health [facility]08-21-2023 History of Present illness Narrative* [employer] Jose GenovevaDO - 01/19/2023 12:49 PM EDT Images from the original note were not included. [facility] - Medical [...] lumbar decompression and partial disce[place] L4-5 [place] . Now follows with Pain Management in [place], [place]. Received opinion from his son's spine surgeon Dr. Farias in [place]. After review of imaging he was offered L4-S1 ALIF with posterior L4-S1 robotic assisted fusion. Since they do not live in [place] he was recommended to seek consultation at [facility]. Pain is located midline and bilateral [...] spine interventions: -Lumbar procedures with Pain Management [facility] Dr. Oliva. -RFA ordered following MBB #2 01/07/22 BL L2, L3, L4, L5 MBB - 95% relief same day 12/17/21 BL L2, L3, L4, L5 MBB - 90% relief x 1 hour, then 50% for a few hours -Lumbar injections in [place] prior to surgery. Had at least a few injections, including RFA, LESI, SIJ, he remembers one of the injections helping. Prior spine surgery: L4-5 Previously treated by: -Pain Management at [facility] in [place], [place], Dr. Barbara Farias on 07/07/22 virtual [...] See below Social: Home life: Moved to [place] 2020. Litigation: No Workers' Compensation: No YELLOW [...] independently [facility] The bones of the lumbar [...] L5 nerve root. 11/26/21 [facility]: Bones: No suspicious bony lesion. [...] 2023 TIME: 12:50 PM documented in this encounterPremier Health [facility]08-18-2023 Miscellaneous Notes* Telephone Encounter - Julianna Yuan RN - 01/16/2023 8:13 AM EDT Left message on voicemail for patient to call office back or to read [employer] message. * Telephone Encounter - Julianna Yuan [...] calling: self Call patient at: at home [phone] (home) [phone] (cell) Was an appointment scheduled: No Closing statement: Results or non-symptom based questions: Thank you for calling [facility], your call will be returned within the next business day. Paul Cat documented in this encounterPremier Health [facility]08-08-2023 Miscellaneous Notes* Telephone Encounter - Livier Barrera RN - 01/06/2023 8:13 AM EDT Please sign pended new order for Lumbar Spine MRI as it needs to state that it needs to be done with anesthesia. Thank you Livier Barrera RN documented in this encounterPremier Health [facility]08-07-2023 Miscellaneous Notes* Telephone Encounter - Evelyn Chamberlain RN - 01/05/2023 4:52 PM EDT Spoke to patient's . Explained differences between anxiolysis and full anesthesia. Per patient's , patient needs full anesthesia-will not tolerate procedure with anxiolysis alone. Communicated to office that new order needs to be placed for MRI with anesthesia, and will need to be scheduled at [facility]. documented in this encounterPremier Health [facility]07-05-2023 Hospital Discharge instructions Patient Education 12/03/2022 15:36:37 [...] to keep your urine pale yellow. ?Take tmyp-bdo-gjdcjzo or prescription medicines. ?Eat foods that are high in fiber, such as beans, whole grains, and fresh fruits and vegetables. ?Limit foods that are high in fat and processed sugars, such as fried or sweet foods. General instructions Take fgbs-hkj-pnbppwv and prescription medicines only as told by [...] the muscles that help control urination. Take yuhy-phc-aqgdkav and prescription medicines only as told by your health care provider. Contact a health care provider if your symptoms do not improve or get worse. This information is not intended to replace advice given to you by your health care provider. Make sure you discuss any questions you have with your health care provider. Document Revised: 12/21/2020 Document Reviewed: 12/21/2020 [employer] Patient Education 2022 [employer]. Follow Up Care 10/28/2022 10:11:31 With:BRITNI ENCINAS, CLAIRE Boswell, URL Address: [address] [place] [address] When:Within 5 Week(s) [facility] 06-23-2023 Miscellaneous Notes* Telephone Encounter [...] completed. This can only be completed at [facility] Main & orders must be revised to reflect such. Thanks, Kadi Cotton * Telephone Encounter - Kadi Cotton - 11/18/2022 2:17 PM EDT Per [facility] Neurosurgery, a more recent MRI is required before scheduling the patient to be seen. They are requesting new MRI orders to be placed before completing consult. Kadi Cotton documented in this encounterPremier Health [facility]06-21-2023 History of Present illness Narrative* Elizabeth Freire APRN.[employer] - 11/19/2022 12:22 PM EDT Yesenia Broussard [...] cancer. Elizabeth Freire APRN.GILBERTO documented in this encounterPremier Health [facility]06-21-2023 Evaluation note* Diagnosis Prostate cancer (HCC) Malignant neoplasm of prostate Stage 3 chronic kidney disease, unspecified whether stage 3a or 3b CKD (HCC) documented in this encounter [facility]06-20-2023 Nurse Note* Nadja Guardado - 11/18/2022 2:34 PM EDT Clinical questionnaires incomplete due to Patient was roomed by provider documented in this encounterPremier Health [facility]06-20-2023 Nurse Note* Livier Barrera RN - 11/18/2022 1:32 PM EDT AUA 21 Livier Barrera RN documented in this encounterPremier Health [facility]06-20-2023 History of Present illness Narrative* Genoveva Nazario [...] Genoveva Nazario MD cc: Shaikh Dotty [phone] [place] [address] documented in this encounter[facility] Miscellaneous Notes* Telephone Encounter - STEPHANIE Lange [...] call back. JENNIE Lange documented in this encounterPremier Health [facility]01-05-2023 Nurse Note* Kelly Hector - 06/05/2022 12:40 PM EST Back office UA test performed. Results entered in Coffee[employer] and doctor notified. Kelly Hector MA documented in this encounterPremier Health [facility]12-15-2022 Miscellaneous Notes* Telephone Encounter - Diane Parada LPN - 05/15/2022 1:51 PM EST Nena, pt's , notified to have Dexter complete the Cipro prescription and have urine rechecked in 2-3 weeks. Call transferred to [facility] to schedule lab appt. Dr. Nazario, please sign pended lab orders. Diane Parada LPN documented in this encounterPremier Health Miami [facility]12-15-2022 NoteCONSULTATION CONSULTATION DATE: 05/15/2022 HISTORY OF PRESENT [...] he has a son who lives in [place] with the same symptoms and gained relief after seeing a specialist and having surgery. Medications include Lyrica 75 mg t.i.d., [place] 5/325 t.i.d. and baclofen 10 mg q.h.s. [...] are going to spend three months in [place] with his son in early July and he wishes to see the specialist out there. I told him we would continue to medically manage him, which he does agree to. Patient will call the office for an appointment upon return from [place].[facility] [id number] History of Present illness Narrative* STEPHANIE Lange - 04/30/2022 3:01 PM EST SOCIAL WORK FOLLOW UP NOTE: [facility] Date of service:04/30/22 TOPICS ADDRESSED: community resources PLAN: Continue follow up as needed Assigned SW listed in Care Team tab: Yes SW completed and faxed a mileage reimbursement log to [facility] for the month of April 2022. JENNIE Lange documented in this encounterPremier Health [facility]11-23-2022 History of Present illness Narrative* Genoveva Nazario MD - 04/23/2022 12:00 AM EST [facility] Radiation Oncology Department RADIATION ONCOLOGY - COMPLETION NOTE PATIENT: YESENIA BROUSSARD: 1945 DATES OF TREATMENT: 03/18/2022- 04/23/2022 DIAGNOSIS: Prostate adenocarcinoma, initial PSA 9.95, biopsy Suring score 3 + 4 = 7 (grade [...] Staff Physician Jose Nazario M.D. / WST :35 PM documented in this encounterPremier Health [facility]11-21-2022 History of Present illness Narrative* Genoveva Nazario MD - 04/21/2022 3:23 PM EST genoveva Radiation Oncology - On Treatment Review (OTR) Note PATIENT NAME: Yesenia Broussard PATIENT DIAGNOSIS: Prostate adenocarcinoma, initial PSA 9.95, biopsy Suring score 3 + 4 = 7 (grade [...] treatment. Genoveva Nazario MD documented in this encounterPremier Health [facility]11-14-2022 History of Present illness Narrative* Genoveva Nazario [...] outlined. Genoveva Nazario MD documented in this encounterPremier Health [facility]11-07-2022 History of Present illness Narrative* Genoveva Nazario MD - 04/07/2022 11:03 AM EST Radiation Oncology - On Treatment Review (OTR) Note PATIENT NAME: Yesenia Broussard PATIENT DIAGNOSIS: Prostate adenocarcinoma, initial PSA 9.95, biopsy Suring score 3 + 4 = 7 (grade [...] outlined. Genoveva Nazario MD documented in this encounterPremier Health [facility]10-31-2022 History of Present illness Narrative* Genoveva Nazario MD - 03/31/2022 3:29 PM EDT Radiation Oncology - On Treatment Review (OTR) Note PATIENT NAME: Yesenia Broussard PATIENT DIAGNOSIS: Prostate adenocarcinoma, initial PSA 9.95, biopsy Suring score 3 + 4 = 7 (grade [...] outlined. Genoveva Nazario MD documented in this encounterPremier Health [facility]10-31-2022 History of Present illness Narrative* STEPHANIE Lange [...] March 2022. JENNIE Lange documented in this encounterPremier Health [facility]10-27-2022 Nurse Note* Livier Barrera RN - 03/27/2022 [...] assist. Livier Barrera RN documented in this encounterPremier Health [facility]10-24-2022 History of Present illness Narrative* G Jose Nazario MD - 03/24/2022 4:00 PM EDT Radiation Oncology - On Treatment Review (OTR) Note PATIENT NAME: Yesenia Broussard PATIENT DIAGNOSIS: Prostate adenocarcinoma, initial PSA 9.95, biopsy Suring score 3 + 4 = 7 (grade [...] outlined. Genoveva Nazario MD documented in this encounterPrem[facility]10-18-2022 History of Present illness Narrative* Genoveva Nazario MD - 03/18/2022 3:58 PM EDT Radiation Oncology - On Treatment Review (OTR) Note PATIENT NAME: Yesenia Broussard PATIENT DIAGNOSIS: Prostate adenocarcinoma, initial PSA 9.95, biopsy Suring score 3 + 4 = 7 (grade [...] prescribed. Genoveva Nazario MD documented in this encounterPremier Health [facility]10-18-2022 Miscellaneous Notes* Telephone Encounter - Diane Parada LPN - 03/18/2022 8:31 AM EDT CBC order the second week during radiation is pending your approval. Diane Parada LPN documented in this encounterPremier Health [facility]10-13-2022 NoteCONSULTATION PROCEDURE DATE: 03/13/2022 PREOPERATIVE DIAGNOSIS: Bilateral [...] the procedure well with no overt complications.[facility] [id number] NoteCONSULTATION CONSULTATION DATE: 03/13/2022 HISTORY OF PRESENT [...] current medications include Lyrica 75 mg t.i.d., [place] 5/325 t.i. d., baclofen 10 mg q.h.s. [...] and will return in six weeks' time.[facility] [id number] History of Present illness Narrative* STEPHANIE Lange [...] as appropriate. JENNIE Lange documented in this encounterPremier Health [facility]10-12-2022 History of Present illness Narrative* Genoveva Nazario MD - 03/12/2022 12:00 AM EDT YESENIA BROUSSARD [id number] 03/12/2022 [facility] Department of Radiation Oncology Treatment [...] Nazario M.D. 21:57 PM documented in this encounterPremier Health [facility]10-04-2022 Miscellaneous Notes* Telephone Encounter - STEPHANIE Lange [...] as appropriate. JENNIE Lange documented in this encounterPremier Health [facility]10-03-2022 History of Present illness Narrative* Genoveva Nazario MD - 03/03/2022 10:42 AM EDT Unable to complete simulation due to anxiety related to claustrophobia. Prescription for Valium given. We will reschedule. documented in this encounterPremier Health [facility]09-27-2022 Miscellaneous Notes* Telephone Encounter - Margaret Mcpherson [...] Thanks Diane Parada LPN documented in this encounterPremier Health [facility]09-12-2022 Miscellaneous Notes* Telephone Encounter - Livier Cook [...] Thanks Maddy Waite MA documented in this encounterPremier Health [facility] South08-25-2022 NoteCONSULTATION CONSULTATION DATE: 01/23/2022 HISTORY OF PRESENT [...] well enough that [place] went [place] the [employer] to [place] a [place] pull. Sitting on [...] ice. Medications include baclofen 10 mg q.h.s., [place] 5/325 t.i.d., Lyrica 75 mg b.i.d. Patient's [...] followed up in the clinic post procedure.The [place] [address]-01-2022 Miscellaneous Notes* Telephone Encounter - Diane Parada [...] advise. Diane Parada LPN documented in this encounterPremier Health [facility]07-28-2022 NoteCONSULTATION CONSULTATION DATE: 12/26/2021 HISTORY OF PRESENT [...] His medications include baclofen 10 mg q.h.s., [place] 5/325 t.i.d. and Lyrica 50 mg b.i.d. [...] and he is in agreement to this.[facility] [id number] Nurse Note* Diane Parada LPN - 12/10/2021 9:20 AM EDT AUA= 10 documented in this encounterPremier Health [facility]07-12-2022 History of Present illness Narrative* Genoveva Nazario MD - 12/10/2021 9:00 AM EDT Radiation Oncology - Prostate Cancer New Patient/Consult Note PATIENT NAME: Yesenia Broussard PATIENT REQUESTING PROVIDER: Dr. Johnston DIAGNOSIS: 76 year old male with prostate adenocarcinoma, initial PSA 9.95, biopsy Suring score 3 + 4 = 7 (grade [...] underwent TURP on 06/06/2021. Pathology demonstrating adenocarcinoma, Suring 7 (3+4), involving 21 to 30% of submitted tissue. No evidence of intraductal component, or LVI. 6 to 10% percentage of Suring pattern 4 Repeat PSA 11/04/2021 3.73. MRI [...] ASSESSMENT/PLAN: Prostate adenocarcinoma, initial PSA 9.95, biopsy Suring score 3 + 4 = 7 (grade [...] MD cc: Shaikh Dotty [address] [address] Barbara Johnston [address] [place] [address] documented in this encounterPremier Health [facility]06-06-2022 Evaluation + Plan note Diagnostic Tests Pending * PSA Total 11/04/21 [facility] 06-06-2022 Hospital Discharge instructions Patient Education 11/04/2021 [...] 05/18/2006 Document Revised: 02/04/2019 Document Reviewed: 04/17/2017 [employer] Patient Education 2020 [employer]. 11/04/2021 10:39:39 Benign Prostatic Hyperplasia Benign Prostatic [...] urethra. Follow these instructions at home: Take ttdm-bzk-ntkfxlp and prescription medicines only as told by [...] 05/18/2006 Document Revised: 04/12/2019 Document Reviewed: 06/22/2017 [employer] Patient Education 2020 [employer]. 11/04/2021 10:39:34 Prostate Cancer Prostate Cancer The [...] who: Are older than age 65. Are -Israeli. Are obese. Have a family history of [...] cells. Follow these instructions at home: Take jcej-nij-mobnpll and prescription medicines only as told by [...] 05/18/2006 Document Revised: 04/30/2018 Document Reviewed: 01/26/2017 [employer] Patient Education 2020 [employer]. Follow Up Care 07/01/2021 09:43:21 With:PRESTON MAK, Barbara Warner, URL Address: [facility] [address] , [place] [phone] When: Unknown Comments:Will schedule MRI of prostate w/wo and Perineal prostate biopsy. [facility] 05-26-2022 Evaluation note* Encounter Date [...] statins. Monitor LFTs and lipid profile periodically. [employer] Other Evaluation + Plan note Future Appointments Appointment Date:01/06/2023 09:15:00 AM Scheduled Provider:CLAIRE JAMES PA-C Location:[facility] Appointment Type:URO Office Visit [facility] evaluation + Plan note Future Appointments Appointment Date:04/21/2023 08:30:00 AM Scheduled Provider:CLAIRE JAMES PA-C Location:[facility] Appointment Type:URO Office Visit [facility] evaluation + Plan note Future Appointments Appointment Date:07/07/2023 09:00:00 AM Scheduled Provider:CLAIRE JAMES PA-C Location:[facility] Appointment Type:URO Office Visit Diagnostic Tests Pending * Electrolyte Panel 04/21/23 [facility] evaluation + Plan note Future Appointments Appointment Date:07/07/2023 09:00:00 AM Scheduled Provider:CLAIRE JAMES PA-C Location:[facility] Appointment Type:URO Office Visit Diagnostic Tests Pending * [facility] Appointment Date:04/01/2024 10:45:00 AM Scheduled Provider:Barbara JOHNSTON MD Location:[facility] Appointment Type:URO Office Visit Diagnostic Tests Pending * PSA Total 12/31/23 [facility] evaluation + Plan note Future Appointments Appointment Date:04/18/2024 12:45:00 PM Scheduled Provider:Barbara JOHNSTON MD Location:[facility] Appointment Type:URO Office Visit Diagnostic Tests Pending * Urine Culture 04/07/24 [facility] evaluation + Plan note Future Appointments Appointment Date:04/18/2024 12:45:00 PM Scheduled Provider:Barbara JOHNSTON MD Location:[facility] Appointment Type:URO Office Visit [facility] evaluation + Plan note Future Appointments Appointment Date:04/21/2025 10:15:00 AM Scheduled Provider:Barbara JOHNSTON MD Location:[facility] Appointment Type:URO Office Visit Diagnostic Tests Pending * PSA Total 04/18/24 [facility] evaluation + Plan note Future Appointments Appointment Date:04/21/2025 10:15:00 AM Scheduled Provider:Barbara JOHNSTON MD Location:[facility] Appointment Type:URO Office Visit Diagnostic Tests Pending * Urine Culture 08/08/24 [facility] evaluation + Plan note Future Appointments Appointment Date:04/21/2025 10:15:00 AM Scheduled Provider:[facility] Office Visit Diagnostic Tests Pending * Urine Culture 08/22/24 [facility] Evaluation + Plan note Future Appointments Appointment Date:04/21/2025 10:15:00 AM Scheduled Provider:Bar[facility] JOHNSTON MD [facility] Type:[facility]O Office Visit Diagnostic Tests Pending * Urine Cytology ([facility]) 08/29/24 [facility]* Diagnosis Malignant neoplasm of prostate (HCC)- Primary Malignant neoplasm of prostate [facility] encounter [facility]* Diagnosis Malignant neoplasm of prostate (HCC)- Primary Malignant neoplasm of prostate documented in this encounter [facility] note* Diagnosis Malignant neoplasm of prostate (HCC)- Primary Malignant neoplasm of prostate documented [facility] this encounter [facility]* Diagnosis Malignant neoplasm of prostate (HCC)- Primary Malignant neoplasm of prostate documented in this encounter [facility] note* Diagnosis Malignant neoplasm of prostate (HCC) Malignant neoplasm of prostate documented in this encounter [facility]* Diagnosis Malignant neoplasm of prostate (HCC)- Primary Malignant neoplasm of prostate documented in this encounter [facility] note* Diagnosis Malignant neoplasm of prostate (HCC)- Primary Malignant neoplasm of prostate [facility]* Diagnosis Malignant neoplasm of prostate (HCC)- Primary Malignant neoplasm of prostate documented in this encounter [facility] noteNo assessment information availableRegional Medical Center Work Phone: evaluation note* Diagnosis Hematuria, unspecified type- Primary Malignant neoplasm of prostate (HCC) Malignant neoplasm of prostate documented in this encounter [facility] note* Diagnosis Urinary tract infection without hematuria, site unspecified- Primary documented in this encounter [facility] note* Diagnosis History of prostate cancer- Primary Personal history of malignant neoplasm of prostate Spinal arthritis Spondylosis of unspecified site without mention of myelopathy Spinal stenosis of lumbar region, unspecified whether neurogenic claudication present documented in this encounter [facility]* Diagnosis Spinal stenosis of lumbar region without neurogenic claudication- Primary Spinal stenosis, lumbar region, without neurogenic claudication documented in this encounter [facility]* Diagnosis Spinal stenosis of lumbar region, unspecified whether neurogenic claudication present- Primary documented in this encounter [facility] note* Diagnosis Spinal stenosis, lumbar region with neurogenic claudication- Primary Foraminal stenosis of lumbar region Spinal stenosis, lumbar region, without neurogenic claudication Peripheral artery disease (HCC) Peripheral vascular disease, unspecified Prostate cancer (HCC) Malignant neoplasm of prostate documented in this encounter [facility] noteNo [employer] Other Evaluation note* Diagnosis Spinal stenosis, lumbar region with neurogenic claudication- Primary Foraminal stenosis of lumbar region Spinal stenosis, lumbar region, without neurogenic claudication documented in this encounter [facility]* Diagnosis Spondylolisthesis of lumbar region- Primary Acquired spondylolisthesis documented in this encounter [facility] note* Diagnosis Hypertension, unspecified type Mixed hyperlipidemia Bilateral carotid artery disease, unspecified type (CMS/HCC) History of NV (myocardial infarction) Old myocardial infarction BMI 28.0-28.9,adult ASHD (arteriosclerotic heart disease) Coronary atherosclerosis of unspecified type of vessel, caddo or graft PVD (peripheral vascular disease) ([facility]/HCC) Unspecified peripheral vascular disease Smoker Tobacco use disorder Chest pain, unspecified type documented in this encounter [facility] Work Phone: Evaluation note* Diagnosis Onset Date Resolution Status Current every day smoker acutePAD (peripheral artery disease)[facility] Work Phone: Evaluation note* Diagnosis Onset Date Resolution Status Anemia of renal disease acuteCKD (chronic kidney disease) stage 3, GFR 30-59 ml/minacute [id number] hyperparathyroidismacuteUTI (urinary tract infection)[facility] Work Phone: Evaluation note* Diagnosis Primary [...] neoplasm of prostate Coronary artery disease involving caddo coronary artery of caddo heart without angina pectoris (CMS/HCC) H/O prostate cancer Mixed hyperlipidemia (CMS/HCC) Mixed hyperlipidemia Chronic bilateral low back pain with bilateral sciatica Coronary artery disease involving caddo coronary artery of caddo heart without angina pectoris (CMS/HCC)- Primary PAD (peripheral artery disease) (CMS/HCC) Unspecified peripheral vascular disease Primary hypertension (CMS/HCC) Unspecified essential hypertension Stage 3a chronic kidney disease (HCC) (CMS/HCC) Lumbar stenosis with neurogenic claudication Mixed hyperlipidemia (CMS/HCC) Mixed hyperlipidemia Elevated random blood glucose level Unintentional weight change Gastroesophageal reflux disease without esophagitis Esophageal reflux Coronary artery disease involving caddo coronary artery of caddo heart without angina pectoris (CMS/HCC)- Primary Stage 3a chronic kidney disease (HCC) (CMS/HCC) Lumbar stenosis with neurogenic claudication Primary hypertension (CMS/HCC)- Primary Unspecified essential hypertension Coronary artery disease involving caddo coronary artery of caddo heart without angina pectoris (CMS/HCC) Stage 3a [...] disease (HCC) (CMS/HCC) documented in this encounter [facility] HealthcareEvaluation note* Diagnosis Primary hypertension (CMS/HCC)- Primary Unspecified essential hypertension Coronary artery disease involving caddo coronary artery of caddo heart without angina pectoris (CMS/HCC) Stage 3a chronic kidney disease (HCC) (CMS/HCC) Gastroesophageal reflux disease without esophagitis Esophageal reflux Tobacco abuse Tobacco use disorder Prostate cancer (CMS/HCC) Malignant neoplasm of prostate Benign prostatic hyperplasia with lower urinary tract symptoms, symptom details unspecified documented in this encounter [facility] HealthcareEvaluation note* Diagnosis Primary hypertension ([facility]) Unspecified essential hypertension documented in this encounter [facility] HealthcareEvaluation note* Diagnosis Onset Date Resolution Status Admit Date Anemia of renal disease acuteMarch 2024 10:35amCKD (chronic kidney disease) stage 3, GFR 30-59 ml/minacuteMarch 2024 10:35amHypertensive chronic kidney disease with stage 1 through stage 4 chronic kiacuteMarch 2024 10:35amMicroscopic hematuriaacuteMarch 2024 10:35amSecondary hyperparathyroidismacuteMarch 2024 10:35am [facility] Work Phone: Evaluation note* Diagnosis Mixed hyperlipidemia- Primary Bilateral carotid artery disease, unspecified type Hypertension, unspecified type BMI 28.0-28.9,adult Smoker Tobacco use disorder Prostate cancer (Multi) Malignant neoplasm of prostate Chronic kidney disease, stage 3b (Multi) ASHD (arteriosclerotic heart disease) Coronary atherosclerosis of unspecified type of vessel, c[place]o or graft PVD (peripheral vascular disease) ([facility]) Unspecified peripheral vascular disease documented in this encounter [facility] Work Phone: Evaluation note* Diagnosis Onset Date Resolution Status Admit Date Anemia of renal disease acuteSeptember 2024 11:31amCKD (chronic kidney disease) stage 3, GFR 30-59 ml/minacuteSeptember 2024 11:31amHypertensive chronic kidney disease with stage 1 through stage 4 chronic kiacuteSeptember 2024 11:31amMicroscopic hematuriaacuteSeptember 2024 11:31amSecondary hyperparathyroidismacute Kelli 2024 11:31am [facility] Work Phone: History general Narrative - Reported* Type Description Date Medical History CKD (CHRONIC KIDNEY DISEASE) STA GE III Medical HistoryCLAUDICATIONMedical HistoryHYPERLIPIDEMIAMedical HistoryBPH Medical HistoryANXIETYMedical HistoryCORONARY ATHEROSCLEROSISMedical History PERIPHERAL ARTERIAL DISEASEMedical HistoryHYPERTENSIONMedical HistoryPROSTATE CANCERSurgical HistoryBILATERAL CAROTID [id number] History CORONARY STENT IN [id number] HistoryPROSTATE SURGERYHospitalization HistorySEE ABOVE [employer] Other History general Narrative - Reported* Type Description Date Medical History CKD (CHRONIC KIDNEY DISEASE) STA GE III Medical HistoryCLAUDICATIONMedical HistoryHYPERLIPIDEMIAMedical HistoryBPH Medical HistoryANXIETYMedical HistoryCORONARY ATHEROSCLEROSISMedical History PERIPHERAL ARTERIAL DISEASEMedical HistoryHYPERTENSIONMedical HistoryPROSTATE CANCERSurgical HistoryBILATERAL CAROTID [id number] History CORONARY STENT IN [id number] HistoryPROSTATE SURGERYSurgical History ANGIOPLASTY LT03/2023Hospitalization HistorySEE ABOVE [employer] Other Hospital course Narrative No data available for this section [facility] Discharge instructions No data available for this section [facility] No data available for this section [facility] CenterReason for referral (narrative)* Consultation (Routine) - AuthorizedSpecialtyDiagnoses / ProceduresReferred By Contact Referred To ContactCardiology Diagnoses Hypertension, unspecified type Mixed hyperlipidemia Bilateral carotid artery disease, unspecified type (CMS/HCC) Procedures Follow Up In Cardiology Chaim Grayson DO [address] [place] [address] 2, [address] [address] Chaim Grayson DO [address] [facility] 2, [address] [address] Referral IDStatusReasonStart DateExpiration DateVisits RequestedVisits [id number]/4/20241/ * Cardiovascular (Routine) - Pending ReviewSpecialtyDiagnoses / Procedures Referred By ContactReferred To Contact Diagnoses Mixed hyperlipidemia Bilateral carotid artery disease, unspecified type (CMS/HCC) Procedures ECG 12 Lead Chaim Grayson DO [address] [facility] 2, [place] [id number] Referral IDStatusReasonStlamar DateExpiration DateVisits RequestedVisits [id number] Review * Consultation (Routine) - AuthorizedSpecialtyDiagnoses / ProceduresReferred By ContactReferred To ContactCardiology Diagnoses Hypertension, unspecified type Bilateral carotid artery disease, unspecified type (CMS/HCC) Procedures Follow Up In Cardiology Chaim Grayson DO [place] [address] [place] [address], [address] [address] Referral IDStatusReasonStlamar DateExpiration DateVisits RequestedVisits [id number]/4/20241/3/[id number] * Cardiac Stress Testing (Routine) - Pending ReviewSpecialtyDiagnoses / ProceduresReferred By ContactReferred To ContactRadiology Diagnoses Hypertension, unspecified type Bilateral carotid artery disease, unspecified type (CMS/HCC) Chest pressure Procedures Nuclear Stress Test CHG MYOCARDIAL SPECT MULTIPLE STUDIES CHG MYOCARDIAL SPECT SINGLE STUDY AT REST OR STRESS KenanChaim DO Laney [address] [place] [address] 2, [address] [address] Referral IDStatusReasonStlamar DateExpiration DateVisits RequestedVisits [id number] Review [facility] Work Phone: Reason for referral (narrative)* Consultation (Routine) - Pending ReviewSpecialtyDiagnoses / ProceduresReferred By Contact Referred To ContactUrology Diagnoses Prostate cancer (CMS/HCC) Benign prostatic hyperplasia with lower urinary tract symptoms, symptom details unspecified Procedures OR OFFICE/OUTPATIENT NEW HIGH MDM 60 MINUTES Nasir Ward NP [address] [place] [address] Travis Bryant MD [address] [place] [address] Referral IDStatusReasonStart DateExpiration DateVisits RequestedVisits [id number] Review Specialty Services Required / Scheduling Instructions Please include OV note from today and from Dr. Johnston office VLADIMIR Allen for referral (narrative)No reason for referral information availablePremier Health [facility] Work Phone: Summary Purpose Family History No [...] kidney disease) stage 3, GFR 30-59 ml/min [id number] Secondary hyperparathyroidism UTI (urinary tract infection) Chief [...] 2025 10:51am Secondary hyperparathyroidism March 142024 10:51am Chief Complaint Admit Date renal 6 month f/u February 20, 2025 11:31am 6M and medication refills March 14, 2025 10:51am Unknown March 23, 2025 8 :32am Reason for Visit Admit Date Anemia of [...] 10:51am Hyperlipidemia March 14, 2025 1 0:51am Myalgia March 14, 2025 1 0:51am PAD (peripheral artery disease) March 14, 2025 10:51am Prostate cancer March 14, 2025 1 0:51am PVD (peripheral vascular disease) with c laudication March 14, 2025 10:51am Secondary hyperparathyroidism March 142024 10:51am Reason for Referral SpecialtyDiagnoses / ProceduresReferred By ContactReferred To Contact Diagnoses Bilateral carotid artery disease, unspecified type (CMS/HCC) History of NV (myocardial infarction) ASHD (arteriosclerotic heart disease) PVD (peripheral vascular disease) (CMS/[facility]) Chest pain, unspecified type Procedures ECG 12 Lead Chaim Grayson, DO [address] [facility] 2, [address] [place], [place] [id number] Referral IDStatusReasonStart DateExpiration DateVisits RequestedVisits [id number]/19/20243/19/[id number] / Procedures Referred By ContactReferred To ContactCardiology Diagnoses Bilateral carotid artery disease, unspecified type (CMS/[facility]) Procedures Follow Up In Cardiology Chaim Grayson, DO [address] [facility] 2, [address] [place] [id number] KenanChaim, DO [address] [facility] 2, [place] [id number] Referral IDStatusReasonStart DateExpiration DateVisits RequestedVisits [id number]/19/20243/[id number] / Procedures Referred By ContactReferred To [facility] Diagnoses Spondylolisthesis of lumbar region Procedures CONSULT TO [facility] ([facility]RONIC PAIN) OFFICE/OUTPATIENT [facility] 60 MINUTES Kodi Reynolds MD [address] [place] [address] Referral IDStatusReasonStart DateExpiration DateVisits RequestedVisits [id number] Review PCP Requested Referral /[id number] / ProceduresReferred By ContactReferred To Contact Diagnoses Spinal stenosis, lumbar region with neurogenic claudication Foraminal stenosis of lumbar region Procedures CONSULT TO SPINE SURGERY OFFICE/OUTPATIENT [facility] 60-74 MINUTES Jose Nichols DO [address] [place] [address] Referral IDStatusReasonStart DateExpiration DateVisits RequestedVisits [id number] Review PCP Requested Referral /[id number] / ProceduresReferred By ContactReferred To ContactMR IMAGING Diagnoses Spinal stenosis of lumbar region, unspecified whether neurogenic claudication present Procedures MRI LUMBAR SPINE WO/W IVCON MRI SPINAL CANAL LUMBAR W/O & W/CONTR MATRL Genoveva Nazario MD [address] [place] [address] Mr Imaging Referral IDStatusReasonStlamar DateExpiration DateVisits RequestedVisits [id number] Review Auto-Generated Referral /[id number] / ProceduresReferred By ContactReferred To ContactNeurosurgery Diagnoses Spinal arthritis Procedures CONSULT TO NEUROSURGERY OFFICE/OUTPATIENT [facility] 60-74 MINUTES Genoveva Nazario MD [address] [place] [address] Referral IDStatusReasonStlamar DateExpiration DateVisits RequestedVisits [id number] Review PCP Requested Referral / Additional Source [...] content) DATE CREATED AUTHOR 06/12/2021 [facility] DATE CREATED AUTHOR AUTHOR'S ORGANIZ ATION 03/27/2022 [facility] DATE CREATED AUTHOR AUTHOR'S ORGANIZ ATION 11/07/2022 [facility] DATE CREATED AUTHOR AUTHOR'S ORGANIZ ATION 01/06/2023 [facility] DATE CREATED AUTHOR AUTHOR'S ORGANIZ ATION 06/16/2023 [facility] DATE CREATED AUTHOR AUTHOR'S ORGANIZ ATION 06/29/2023 [facility] DATE CREATED AUTHOR AUTHOR'S ORGANIZ ATION 08/17/2023 [facility] DATE CREATED AUTHOR AUTHOR'S ORGANIZ ATION 04/11/2024 [facility] DATE CREATED AUTHOR AUTHOR'S ORGANIZ ATION 04/21/2024 [facility] DATE CREATED AUTHOR AUTHOR'S ORGANIZ ATION 07/15/2024 [facility] DATE CREATED AUTHOR AUTHOR'S ORGANIZ ATION 08/15/2024 [facility] DATE CREATED AUTHOR AUTHOR'S ORGANIZ ATION 08/26/2024 [facility] DATE CREATED AUTHOR AUTHOR'S ORGANIZ ATION 08/30/2024 [facility] DATE CREATED AUTHOR AUTHOR'S ORGANIZ ATION 01/19/2025 [facility] DATE CREATED AUTHOR AUTHOR'S ORGANIZ ATION 03/04/2025 [facility] DATE CREATED AUTHOR AUTHOR'S ORGANIZ ATION 03/16/2025 [facility] DATE CREATED AUTHOR AUTHOR'S ORGANIZ ATION 03/20/2025 [facility] DATE CREATED AUTHOR AUTHOR'S ORGANIZ ATION 03/25/2025 [facility] DATE CREATED AUTHOR AUTHOR'S ORGANIZ ATION 04/04/2025 [facility] REASON FOR VISIT (unrecogniz ed section and content) ReasonCommentsConsultReasonCommentsPatient UpdateReasonCommentsPatient Update AppointmentReasonOnset DateCommentsSimulation Request Form2Reason CommentsSocial Work ServicesReasonCommentsOrdersReasonCommentsRadiotherapy On- treatment VisitReasonCommentsPhlebotomyReasonCommentsResultsAppointmentReason CommentsProstate CancerReasonCommentsReferral InformationReasonCommentsPatient QuestionAppointmentReasonCommentsOrdersReasonCommentsOrdersAppointmentReason CommentsNew PatientLow Back PainSpecialtyDiagnoses / ProceduresReferred By ContactReferred To ContactNeurosurgery Diagnoses Spinal arthritis Procedures CONSULT TO NEUROSURGERY OFFICE/OUTPATIENT [facility] 60-74 MINUTES Genoveva Nazario MD [address] [place] [address] [place] [address] Referral IDStatusReasonStart DateExpiration DateVisits RequestedVisits [id number] Review PCP Requested Referral [id number] ConfirmationReasonComments Establish CareFawwad pvd HTN abn ekgSpecialtyDiagnoses / ProceduresReferred By ContactReferred To Contact Diagnoses Mixed hyperlipidemia Bilateral carotid artery disease, unspecified type (CMS/HCC) Procedures ECG 12 Lead Chaim Grayson, DO [address], [address] [place] [phone] Referral IDStatusReasonStart DateExpiration DateVisits RequestedVisits [id number] [id number] Back PainNew Patient EvaluationNew PatientSpecialtyDiagnoses / ProceduresReferred By Contact Referred To ContactRadiology Diagnoses Hypertension, unspecified type Bilateral carotid artery disease, unspecified type (CMS/HCC) Chest pressure Procedures Nuclear Stress Test CHG MYOCARDIAL SPECT MULTIPLE STUDIES CHG MYOCARDIAL SPECT SINGLE STUDY AT REST OR STRESS Chaim Grayson, DO [address] [facility] 2, [address] [place] [address] Referral IDStatusReasonStart DateExpiration DateVisits RequestedVisits [id number]/4/20241/3/[id number]-ry0bxSwrdgsogw Diagnoses / ProceduresReferred By ContactReferred To ContactCardiology Diagnoses Hypertension, unspecified type Mixed hyperlipidemia Bilateral carotid artery disease, unspecified type (CMS/HCC) Procedures Follow Up In Cardiology Kenan, Chaim Davison, DO [address] [facility] 2, [address] [place] [address] Kenan Chaim Laney, DO [address], [address] [place] [address] Referral IDStatusReasonStart DateExpiration DateVisits RequestedVisits [id number]/4/20241/[id number] Cancer SpecialtyDiagnoses / ProceduresReferred By ContactReferred To ContactRadiation Oncology / RADIATION ONCOLOGY Diagnoses Malignant neoplasm of prostate jeovany treating prostate Procedures SIMULATION PARTRIDGE IMRT 28fractions Genoveva Nazario MD [address] [place] [address] [place] [address] Genoveva Nazario MD [address] [place] [address] [place] [address] Referral IDStatusReasonStart DateExpiration DateVisits RequestedVisits [id number]/27/20221/[id number] RefillReason Onset DateCommentsMed [id number] DateCommentsMed Refill 4ReasonCommentsFollow-upReasonCommentsAnnual Exam1y Follow up for Coronary Artery DiseaseSpecialtyDiagnoses / ProceduresReferred By Contact Referred To ContactCardiology Diagnoses Bilateral carotid artery disease, unspecified type Procedures Follow Up In Cardiology Chaim Grayson, [place] [id number] Phone: tel: fax: Chaim Grayson, [address], [place] [phone] Phone: tel: fax: Referral IDStatusReasonStart DateExpiration DateVisits RequestedVisits [id number]/19/20243/[id number] DateCommentsMed Lwavvt8609/12/2024ReasonCommentsProstate CancerFollow up Source Comments (unrecognize d section and content) In the event this informatio n is protected by the Federal Confidentiality of Alcohol and Drug Abuse Patient Records regulations: The Federal rules restrict any use of the information to criminally investigate or prosecute any alcohol or drug abuse patient.[facility] SouthIn the event this information is protected by the Federal Confidentiality of Alcohol and Drug Abuse Patient Records regulations: The Federal rules restrict any use of the information to criminally investigate or prosecute any alcohol or drug abuse patient.[facility] SouthIn the event this information is protected by the Federal Confidentiality of Alcohol and Drug Abuse Patient Records regulations: The Federal rules restrict any use of the information to criminally investigate or prosecute any alcohol or drug abuse patient.[facility] SouthIn the event this information is protected by the Federal Confidentiality of Alcohol and Drug Abuse Patient Records regulations: The Federal rules restrict any use of the information to criminally investigate or prosecute any alcohol or drug abuse patient.[facility] SouthIn the event this information is protected by the Federal Confidentiality of Alcohol and Drug Abuse Patient Records regulations: The Federal rules restrict any use of the information to criminally investigate or prosecute any alcohol or drug abuse patient.[facility] SouthIn the event this information is protected by the Federal Confidentiality of Alcohol and Drug Abuse Patient Records regulations: The Federal rules restrict any use of the information to criminally investigate or prosecute any alcohol or drug abuse patient.[facility] SouthIn the event this information is protected by the Federal Confidentiality of Alcohol and Drug Abuse Patient Records regulations: The Federal rules restrict any use of the information to criminally investigate or prosecute any alcohol or drug abuse patient.[facility] SouthIn the event this information is protected by the Federal Confidentiality of Alcohol and Drug Abuse Patient Records regulations: The Federal rules restrict any use of the information to criminally investigate or prosecute any alcohol or drug abuse patient.[facility] SouthIn the event this information is protected by the Federal Confidentiality of Alcohol and Drug Abuse Patient Records regulations: The Federal rules restrict any use of the information to criminally investigate or prosecute any alcohol or drug abuse patient.[facility] SouthIn the event this information is protected by the Federal Confidentiality of Alcohol and Drug Abuse Patient Records regulations: The Federal rules restrict any use of the information to criminally investigate or prosecute any alcohol or drug abuse patient.[facility] SouthIn the event this information is protected by the Federal Confidentiality of Alcohol and Drug Abuse Patient Records regulations: The Federal rules restrict any use of the information to criminally investigate or prosecute any alcohol or drug abuse patient.[facility] SouthIn the event this information is protected by the Federal Confidentiality of Alcohol and Drug Abuse Patient Records regulations: The Federal rules restrict any use of the information to criminally investigate or prosecute any alcohol or drug abuse patient.[facility] SouthIn the event this information is protected by the Federal Confidentiality of Alcohol and Drug Abuse Patient Records regulations: The Federal rules restrict any use of the information to criminally investigate or prosecute any alcohol or drug abuse patient.[facility] SouthIn the event this information is protected by the Federal Confidentiality of Alcohol and Drug Abuse Patient Records regulations: The Federal rules restrict any use of the information to criminally investigate or prosecute any alcohol or drug abuse patient.[facility] SouthIn the event this information is protected by the Federal Confidentiality of Alcohol and Drug Abuse Patient Records regulations: The Federal rules restrict any use of the information to criminally investigate or prosecute any alcohol or drug abuse patient.[facility] SouthIn the event this information is protected by the Federal Confidentiality of Alcohol and Drug Abuse Patient Records regulations: The Federal rules restrict any use of the information to criminally investigate or prosecute any alcohol or drug abuse patient.[facility] SouthIn the event this information is protected by the Federal Confidentiality of Alcohol and Drug Abuse Patient Records regulations: The Federal rules restrict any use of the information to criminally investigate or prosecute any alcohol or drug abuse patient.[facility] SouthIn the event this information is protected by the Federal Confidentiality of Alcohol and Drug Abuse Patient Records regulations: The Federal rules restrict any use of the information to criminally investigate or prosecute any alcohol or drug abuse patient.[facility] SouthIn the event this information is protected by the Federal Confidentiality of Alcohol and Drug Abuse Patient Records regulations: The Federal rules restrict any use of the information to criminally investigate or prosecute any alcohol or drug abuse patient.[facility] SouthIn the event this information is protected by the Federal Confidentiality of Alcohol and Drug Abuse Patient Records regulations: The Federal rules restrict any use of the information to criminally investigate or prosecute any alcohol or drug abuse patient.[facility] SouthIn the event this information is protected by the Federal Confidentiality of Alcohol and Drug Abuse Patient Records regulations: The Federal rules restrict any use of the information to criminally investigate or prosecute any alcohol or drug abuse patient.[facility] SouthIn the event this information is protected by the Federal Confidentiality of Alcohol and Drug Abuse Patient Records regulations: The Federal rules restrict any use of the information to criminally investigate or prosecute any alcohol or drug abuse patient.[facility] SouthIn the event this information is protected by the Federal Confidentiality of Alcohol and Drug Abuse Patient Records regulations: The Federal rules restrict any use of the information to criminally investigate or prosecute any alcohol or drug abuse patient.[facility] SouthIn the event this information is protected by the Federal Confidentiality of Alcohol and Drug Abuse Patient Records regulations: The Federal rules restrict any use of the information to criminally investigate or prosecute any alcohol or drug abuse patient.[facility] SouthIn the event this information is protected by the Federal Confidentiality of Alcohol and Drug Abuse Patient Records regulations: The Federal rules restrict any use of the information to criminally investigate or prosecute any alcohol or drug abuse patient.[facility] SouthIn the event this information is protected by the Federal Confidentiality of Alcohol and Drug Abuse Patient Records regulations: The Federal rules restrict any use of the information to criminally investigate or prosecute any alcohol or drug abuse patient.[facility] SouthIn the event this information is protected by the Federal Confidentiality of Alcohol and Drug Abuse Patient Records regulations: The Federal rules restrict any use of the information to criminally investigate or prosecute any alcohol or drug abuse patient.[facility] SouthIn the event this information is protected by the Federal Confidentiality of Alcohol and Drug Abuse Patient Records regulations: The Federal rules restrict any use of the information to criminally investigate or prosecute any alcohol or drug abuse patient.[facility] SouthIn the event this information is protected by the Federal Confidentiality of Alcohol and Drug Abuse Patient Records regulations: The Federal rules restrict any use of the information to criminally investigate or prosecute any alcohol or drug abuse patient.[facility] SouthIn the event this information is protected by the Federal Confidentiality of Alcohol and Drug Abuse Patient Records regulations: The Federal rules restrict any use of the information to criminally investigate or prosecute any alcohol or drug abuse patient.[facility] SouthIn the event this information is protected by the Federal Confidentiality of Alcohol and Drug Abuse Patient Records regulations: The Federal rules restrict any use of the information to criminally investigate or prosecute any alcohol or drug abuse patient.[facility] SouthIn the event this information is protected by the Federal Confidentiality of Alcohol and Drug Abuse Patient Records regulations: The Federal rules restrict any use of the information to criminally investigate or prosecute any alcohol or drug abuse patient.[facility] SouthIn the event this information is protected by the Federal Confidentiality of Alcohol and Drug Abuse Patient Records regulations: The Federal rules restrict any use of the information to criminally investigate or prosecute any alcohol or drug abuse patient.[facility] SouthIn the event this information is protected by the Federal Confidentiality of Alcohol and Drug Abuse Patient Records regulations: The Federal rules restrict any use of the information to criminally investigate or prosecute any alcohol or drug abuse patient.[facility] SouthIn the event this information is protected by the Federal Confidentiality of Alcohol and Drug Abuse Patient Records regulations: The Federal rules restrict any use of the information to criminally investigate or prosecute any alcohol or drug abuse patient.[facility] SouthIn the event this information is protected by the Federal Confidentiality of Alcohol and Drug Abuse Patient Records regulations: The Federal rules restrict any use of the information to criminally investigate or prosecute any alcohol or drug abuse patient.[facility] Care Teams (unrecognized sec tion and content) Team Status: Active Member Role Status Dates Brian Avalos MD Primary Care Provider Active Team Status: Active Member Role Status Dates Brian Avalos MD Primary Care Provider Active S tart: February 13, 2025 Theobalta Thakkar , MDAttending ProviderActiveStart: February 13, 2025 Team Status: Inactive Member Role Status Dates Brian Avalos MD Primary Care Provider Active S tart: February 20, 2025 End: February 20bdbalta Thakkar , MDAttending ProviderActiveStart: February 20, 2025 End: February 20, 2025 Team Status: Active Member Role Status Dates Shaikh Dotty MD Primary Care Provider Active Team Status: Active Member Role Status Dates Shaikh Dotty MD Primary Care Provider Active Start: September 15, 2023 Nicki Sierra CMAAttending ProviderActiveStart: September 15, 2023 Team Status: Inactive Member Role Status Dates Shaikh Dotty MD Primary Care Provide r, Attending Provider Active Start: October 01, 2023 End: September 30JENNY De Leoneferring ProviderActiveStart: October 01, 2023 End: October 01, 2023 Team Status: Inactive Member Role Status Dates Shaikh Dotty MD Primary Care Provider, Other Provid er Active Loco Ferrera [employer]-CAttending ProviderActiveTeam MemberRelationshipSpecialtyStart DateEnd Date Shaikh Storm MD [address] [place] [address] PCP - GeneralPrimary Care12/06/21 Barbara Johnston MD [address] [place] [address] ReferringUrology12/06/21Team MemberRelationshipSpecialtyStart DateEnd Date Shaikh Storm MD [address] [address] PCP - GeneralPrimary Care12/06/21 Barbara Johnston MD [address] [place] [address] ReferringUrology12/06/21Team MemberRelationshipSpecialtyStart DateEnd Date Shaikh Storm MD [address] [address] PCP - GeneralPrimary Care12/06/21 Barbara Johnston MD [address] [place] [address] ReferringUrology12/06/21Team MemberRelationshipSpecialtyStart DateEnd Date Shaikh Storm MD [address] [address] PCP - GeneralPrimary Care12/06/21 Barbara Johnston MD [address] [place] [address] ReferringUrology12/06/21Team MemberRelationshipSpecialtyStart DateEnd Date Shaikh Storm MD [address] [address] PCP - GeneralPrimary Care12/06/21 Barbara Johnston MD [address] [place] [address] ReferringUrology12/06/21 Constance Durand, [facility] Social Asgjki15/4/22Team MemberRelationshipSpecialtyStart DateEnd Date Shaikh Storm MD [address] [address] PCP - GeneralPrimary Care12/06/21 Barbara Johnston MD [address] [place] [address] ReferringUrology12/06/21 Constance Durand, [facility] Social Dcnczz06/4/22Team MemberRelationshipSpecialtyStart DateEnd Date Shaikh Storm MD [address] [address] PCP - GeneralPrimary Care12/06/21 Barbara Johnston MD [address] [place] [address] ReferringUrology12/06/21 Con[facility]andATRI[facility] Social Nccvur81/4/22Team MemberRelationshipSpecialtyStart DateEnd Date Shaikh Storm MD [address] [address] PCP - GeneralPrimary Care12/06/21 Barbara Johnston MD [address] [place] [address] ReferringUrology12/06/21 Constance [facility]AT[facility] Social Wnheqm58/4/22Team MemberRelationshipSpecialtyStart DateEnd Date Shaikh Storm MD [address] [address] PCP - GeneralPrimary Care12/06/21 Barbara Johnston MD [address] [place] [address] ReferringUrology12/06/21 Constance Durand, [facility] Social Fchysy13/4/22Team MemberRelationshipSpecialtyStart DateEnd Date Shaikh Storm MD [address] [place] [address] PCP - GeneralPrimary Care12/06/21 Barbara Johnston MD [address] [place] [address] ReferringUrology12/06/21 Constance Durand, [facility] Social Ecosrx05/4/22Team MemberRelationshipSpecialtyStart DateEnd Date Shaikh Storm MD [address] [address] PCP - GeneralPrimary Care12/06/21 Barbara Johnston MD [address] [place] [address] ReferringUrology12/06/21 Constance Durand, [facility] Social Rjxsmf73/4/22Team MemberRelationshipSpecialtyStart DateEnd Date Shaikh Storm MD [address] [address] PCP - GeneralPrimary Care12/06/21 Barbara Johnston MD [address] [place] [address] ReferringUrology12/06/21 Constance Durand, [facility] Social Pqtojk66/4/22Team MemberRelationshipSpecialtyStart DateEnd Date Shaikh Storm MD [address] [place] [address] PCP - GeneralPrimary Care12/06/21 Barbara Johnston MD [address] [place] [address] ReferringUrology12/06/21 Constance [facility] Social Osando08/4/22Team MemberRelationshipSpecialtyStart DateEnd Date Shaikh Storm MD [address] [place] [address] PCP - GeneralPrimary Care12/06/21 Barbara Johnston MD [address] [place] [address] ReferringUrology12/06/21 Constance [facility]AT[facility] Social Bfjxwr51/4/22Team MemberRelationshipSpecialtyStart DateEnd Date Shaikh Storm MD [address] [place] [place] [address] PCP - GeneralPrimary Care12/06/21 Barbara Johnston MD [address] [place] [address] ReferringUrology12/06/21 Con[facility] Social Oopadd63/4/22 Team Status: Inactive Member Role Status Dates Shaikh Dotty MD Primary Care Provider Active Zeinab Justice [facility] ProviderActiveTeam MemberRelationshipSpecialtyStart DateEnd Date Shaikh Storm MD [address] [address] PCP - GeneralPrimary Care12/06/21 Barbara Johnston MD [address] [place] [address] ReferringUrology12/06/21 Constance Durand [facility] Social Womevm39/4/22 Team Status: Inactive Member Role Status Dates Shaikh Dotty MD Primary Care Provider Active Lyla Nazario [facility] ProviderActiveTeam MemberRelationshipSpecialty Start DateEnd Date Shaikh Storm MD [address] [address] PCP - GeneralPrimary Care12/06/21 Barbara Johnston MD [address] [place] [address] ReferringUrology12/06/21 Constance Durand LSW Social Vdxksb98/4/22Team MemberRelationshipSpecialtyStart DateEnd Date Shaikh Storm MD [address] [address] PCP - GeneralPrimary Care12/06/21 Barbara Johnston MD [address] [place] [address] ReferringUrology12/06/21 Constance Durand LSW Social Jjqban81/4/22Team MemberRelationshipSpecialtyStart DateEnd Date Shaikh Storm MD [address] [address] PCP - GeneralPrimary Care12/06/21 Barbara Johnston MD [address] [place] [address] ReferringUrology12/06/21 Constance Durand LSW Social Orojqc13/4/22Team MemberRelationshipSpecialtyStart DateEnd Date Shaikh Storm MD [address] [place] [address] PCP - GeneralPrimary Care12/06/21 Barbara Johnston MD [address] [place] [address] ReferringUrology12/06/21 Constance Durand, [facility] Social Wloiyp38/4/22Team MemberRelationshipSpecialtyStart DateEnd Date Shaikh Storm MD [address] [address] PCP - GeneralPrimary Care12/06/21 Barbara Johnston MD [address] [place] [address] ReferringUrology12/06/21 Con[facility] Social Wietvf60/4/22Te MemberRelationshipSpecialtyStart DateEnd Date Shaikh Storm MD [address] [place] [address] PCP - GeneralPrimary Care12/06/21 Barbara Johnston MD [address] [place] [address] ReferringUrology12/06/21 Constance [facility] Social Zwfkan32/4/22Te MemberRelationshipSpecialtyStart DateEnd Date Shaikh Storm MD [address] [place] [address] PCP - GeneralPrimary Care12/06/21 Barbara Johnston MD [address] [place] [address] ReferringUrology12/06/21 Constance Durand, [facility] Social Tlrimc80/4/22Team MemberRelationshipSpecialtyStart DateEnd Date Shaikh Storm MD [address] [address] PCP - GeneralPrimary Care12/06/21 Barbara Johnston MD [address] [place] [address] ReferringUrology12/06/21 Constance Durand, [facility] Social Mzensm48/4/22Team MemberRelationshipSpecialtyStart DateEnd Date Shaikh Storm MD [address] [address] PCP - GeneralPrimary Care12/06/21 Barbara Johnston MD [address] [place] [address] ReferringUrology12/06/21 Constance Durand, [facility] Social Jdgmcn67/4/22 Team Status: Inactive Member Role Status Dates Shaikh Dotty MD Primary Care Provider Active Temporary AnesthesiologistAttending ProviderActiveTeam MemberRelationship SpecialtyStart DateEnd Date Shaikh Storm MD [address] [address] PCP - GeneralPrimary Care12/06/21 Barbara Johnston MD [address] [place], [place] [address] ReferringUrology12/06/21 Constance Durand, [facility] Social Vltyyn56/4/22 Team Status: Inactive Member Role Status Dates Shaikh Dotty MD Primary Care Provider Active Qasim May ProviderActive Team Status: Inactive Member Role Status Dates Shaikh Dotty MD Primary Care Provider Active Qasim Cueva ProviderActiveTeam MemberRelationshipSpecialtyStart DateEnd Date Shaikh Storm MD [address] [place] [address] PCP - GeneralPrimary Care12/06/21 Barbara Johnston MD [address] [place] [address] ReferringUrology12/06/21 Constance Durand, [facility] Social Spfylu05/4/22Team MemberRelationshipSpecialtyStart DateEnd Date Shaikh Storm MD [address] [place] [address] PCP - GeneralPrimary Care12/06/21 Barbara Johnston MD [address] [place] [address] ReferringUrology12/06/21 Constance Durand, [facility] Social Kfbdec19/4/22 Team Status: Inactive Member Role Status Dates Shaikh Dotty MD Primary Care Provider, Attending Pr ovider Active Team MemberRelationshipSpecialtyStart DateEnd Date Shaikh Storm MD [address] [place] [address] PCP - GeneralInternal Medicine06/04/23Team MemberRelationshipSpecialtyStart Date End Date Shaikh Storm MD [address] [place] [address] PCP - GeneralPrimary Care12/06/21 Barbara Johnston MD [address] [place] [address] ReferringUrology12/06/21 Constance Durand LSW Social Nhnfiw94/4/22Team MemberRelationshipSpecialtyStart DateEnd Date Shaikh Storm MD [address] [place] [address] PCP - GeneralInternal Medicine06/04/23Team MemberRelationshipSpecialtyStart Date End Date Shaikh Storm MD [address] [place] [address] PCP - GeneralInternal Medicine06/04/23Team MemberRelationshipSpecialtyStart Date End Date Shaikh Storm MD PCP - GeneralInternal Medicine06/04/23 Team Status: Inactive Member Role Status Dates Shaikh Dotty MD Primary Care Provider Active Start: October 15, 2023 End: October 15, 2023Bonnie Tan [employer]AP[employer]-CAttending ProviderActiveStart: October 15, 2023 End: October 15, 2023Team MemberRelationshipSpecialtyStart DateEnd Date Shaikh Storm MD [address] [place] [address] PCP - GeneralPrimary Care12/06/21 Barbara Johnston MD [address] [place] [address] ReferringUrology12/06/21 Constance Durand LSW Social Irupwn21/4/22Team MemberRelationshipSpecialtyStart DateEnd Date Shaikh Storm MD [address] [address] PCP - GeneralPrimary Care12/06/21 Barbara Johnston MD [address] [place] [address] ReferringUrology12/06/21 Constance Durand L[facility] Social Lxfuhc74/4/22 Team Status: Active Member Role Status Dates [...] Date Brian Avalos MD [address] [place] [address] PCP - GeneralFamily Medicine01/12/24 Nasir Ward NP [address] [place] [address] Nurse PractitionerFamily Medicine01/12/24Team MemberRelationshipSpecialtyStart DateEnd Date Brian Avalos MD [address] [place], [place] [address] [facility] - [facility]/12/24 Nasir Ward NP [address] [place], [place] [address] [facility]01/12/24Team MemberRelationshipSpecialtyStart DateEnd Date Brian Avalos MD [address] [place], [place] [address] PCP - [facility]01/12/24 Nasir Ward, VALENTIN [address] [place], [place] [address] Nurse [facility]01/12/24Team MemberRelationshipSpecialtyStart DateEnd Date Brian Avalos MD [address] [place], [place] [address] PCP - [facility]01/12/24 Nasir Ward, VALENTIN [address] [place] [address] [facility]01/12/24Team MemberRelationshipSpecialtyStart DateEnd Date Brian Avalos MD [address] [place], [place] [address] PCP - [facility]01/12/24 Nasir Ward, VALENTIN [address] [place] [address] Nurse [facility]01/12/24Team MemberRelationshipSpecialtyStart DateEnd Date Brian Avalos MD [address] [place] [address] PCP - [facility]01/12/24 Nasir Ward NP [address] [place] [address] Nurse [facility]01/12/24Team MemberRelationshipSpecialtyStart DateEnd Date Brian Avalos MD [address] [place], [place] [address] PCP - [facility]01/12/24 Nasir Ward NP [address] [place], [place] [address] Nurse [facility]01/12/24 Team Status: Inactive Member Role Status Dates Brian Avalos MD Primary Care Provider Active S tart: July 14, 2024 End: July 14, 2024MEHRDAD Rasmussen-CEmergency ProviderActiveStart: July 14, 2024 End: July 14, 2024 Team Status: Inactive Member Role Status Dates Brian Avalos MD Primary Care Provider Active S tart: August 10, 2024 End: August 10Qasim Kyle ProviderActiveStart: August 10, 2024 End: August 10, 2024 Team Status: Inactive Member Role Status Dates Theo Thakkar MD Attending Provider Active Start : August 15, 2024 End: August 15, 2024[facility] Bailey ABDIfainast. vincent's hospitalnathaniel Care ProviderActiveStart: August 15, 2024 End: August 15, 2024Team MemberRelationshipSpecialtyStart DateEnd Date Shaikh Storm MD PCP - GeneralMount [facility] Centernal Medicine06/04/23Team MemberRelationshipSpecialtyStart Date End Date Brian Avalos MD [address] [place] [address] [facility] - [facility]01/12/24 Nasir Ward NP [address] [place] [address] Nurse Pract[facility] Medicine01/12/24Team MemberRelationshipSpecialtyStart DateEnd Date Brian Avalos MD [address] [place] [address] PCP - [facility] Medicine01/12/24 Nasir Ward NP [address] [address] Nurse Pract[facility] Medicine01/12/24Team MemberRelationshipSpecialtyStart DateEnd Date Shaikh Storm MD [address] [place] [address] PCP - GeneralPrecu health bertie hospitalry Care12/06/21 Barbara Johnston MD [address] [place] [address] ReferringUrology12/06/21 Constance Durnad LSW Social Ionpgp77/4/22Team MemberRelationshipSpecialtyStart DateEnd Date Brian Avalos MD [facility] - [facility] Medicine01/12/24 Nasir Ward NP Nurse Pract[facility]erW[facility] Medicine01/12/24 Team Status: Active Member Role Status [...] March 14, 2025 End: March 14, 2025 Team Status: Active Member Role/Relationship Status Dates Brian Avalos MD Primary Care Provider Active S tart: February 13, 2025 Qasim Cueva ProviderActiveStart: February 13, 2025 Team Status: Inactive Member Role/Relationship Status Dates Brian Avalos MD Primary Care Provider Active S tart: February 20, 2025 End: February 20Qasim Kyle ProviderActiveStart: February 20, 2025 End: February 20, 2025 Team Status: Active Member Role/Relationship Status Dates Brian Avalos MD Primary Care Provider Active S tart: March 02, 2025 Qasim Saavedra ProviderActiveStart: March 02, 2025 Team Status: Active Member Role/Relationship Status Dates Brian Avalos MD Primary Care Provider Active S tart: March 13, 2025 Qasim Saavedra ProviderActiveStart: March 13, 2025 Team Status: Inactive Member Role/Relationship Status Dates Lucindajodi Nuñez DO Primary Care Provider Active S tart: March 14, 2025 End: March 14, 2025Lucinda Savannah Attending ProviderActiveStart: March 14, 2025 End: March 14, 2025 Team Status: Inactive Member Role/Relationship Status Dates Barbara Johnston MD Attending Provider Active St art: March 23, 2025 End: March 23, 2025Team MemberRelationshipSpecialtyStart DateEnd Date Shaikh Storm MD PCP - GeneralInternal Medicine Shaikh Storm MD PCP - GeneralInternal Medicine Brian Avalos MD PCP - GeneralFamily Medicine01/12/24 Nasir Ward NP Nurse Pract[facility]erW[facility] Medicine01/12/24 Goals (unrecognized section and content) Goals may [...] BE BASED ON THE PRIMARY CLINICAL RECORDS. [facility] provides no warranty or guarantee of the accuracy or completeness of information in this document.
[2025-04-11 13:16] LABS: Prostate Specific Antigen Dx 3.43 ng/mL (<=4.00)
== END 2025-04-11 11:27 | disposition home or self-care (01) ==
PROVIDERS: PCP Family Medicine; Visit Provider Radiology Radiation Oncology
DX: C61 Malignant neoplasm of prostate (principal)
CPT/HCPCS: 36415; 84153

== ENCOUNTER 2025-04-17 14:38 | Outpatient (OUT) | payer MEDICARE, SELFPAY ==
--- OUTSIDE RECORDS SUMMARY | 2025-04-17 14:52 | XMS_ITS | CCD ---
Author Organization [facility] Care Team Providers Care Hog Scraper Name Role Phone Sterling Vizcaino Primary Care Physician [phone] Theo Thakkar Unavailable Dotty MAK [facility] Primary Care Provider Barbara Johnston MD Unavailable YAHAIRA STORMIKH Primary Care Physician Dotty MAK [facility] Primary Care Provider Barbara Johnston MD Unavailable Cnostance Beverly Unavailable Unavailable Dotty MAK [facility] Primary Care Provider Barbara Johnston MD Unavailable Constance Beverly Unavailable Unavailable MD Dotty [facility] Primary Care Provider MD Zeinab Justice Attending Provider MD Lyla Nazario Attending Provider LAKSHMIPATHY ., NARENDRANATH Attending Kiera vailable LAKSHMIPATHY ., NARENDRANATH Admitting Kiera vailable JOHN .HUBERT Consulting Unavailable [facility] Primary Care Unavailable OLIVA ., DR HOSEA Davison Admitting Unavailable LOPEZ MENJIVAR Consulting Unavailable OLIVA ., DR HOSEA Davison Attending Unavailable [facility] Primary Care Unavailable OLIVA ., DR HOSEA Davison Admitting Unavailable OLIVA ., DR HOSEA Davison Consulting Unavailable [facility] Primary Care Unavailable KRISTEN ., DR HOSEA Davison Attending Unavailable [facility] Consulting Unavailable HOBBS ., LOPEZ Consulting Unavailable OLIVA ., DR HOSEA Davison Attending Unavailable OLIVA ., DR HOSEA Davison Admitting [facility] Primary Care Unavailable OLIVA ., DR HOSEA Davison Consulting Unavailable OLIVA ., DR HOSEA Davison Admitting Unavailable OLIVA ., DR HOSEA Davison Consulting [facility] Primary Care Unavailable OLIVA ., DR HOSEA Davison Attending Unavailable [facility], [facility] Consulting Unavailable JONATHAN MARTIN Consulting Unavailable HOBSB ., LOPEZ Consulting Unavailable OLIVA ., DR HOSEA Davison Admitting [facility] Primary Care Unavailable OLIVA ., DR HOSEA Davison Attending Unavailable HOBBS ., LOPEZ Consulting Unavailable OLIVA ., DR HOSEA Davison Attending Unavailable OLIVA ., DR HOSEA Davison Admitting [facility] Primary Care Unavailable OLIVA ., DR HOSEA Davison Attending Unavailable OLIVA ., DR HOSEA Davison Admitting [facility] Primary Care Unavailable OLIVA ., DR HOSEA Davison Consulting Unavailable HOBBS ., LOPEZ Consulting Unavailable OLIVA ., DR HOSEA Davison Attending Unavailable OLIVA ., DR HOSEA Davison Admitting [facility] Primary Care Unavailable OLIVA ., DR HOSEA Davison Admitting [facility] Primary Care Unavailable OLIVA ., DR HOSEA Davison Attending Unavailable OLIVA ., DR HOSEA Davison Admitting Unavailable OLIVA ., DR HOSEA Davison Consulting [facility] Primary Care Unavailable OLIVA ., DR HOSEA Davison Attending Unavailable [facility], [facility] Primary Care Unavailable JOHNSTON ., DR JIMENEZ Consulting Unavailable JOHNSTON ., DR JIMENEZ Attending Unavailable JOHNSTON ., DR JIMENEZ Admitting Unavailable VIVIAN, THEO Consulting Unavailable VIVIANNIXONUL Attending Unavailable VIVIAN, THEO Admitting [facility] Primary Care Unavailable RUT KIRBY Attending Unavailable RUT KIRBY Admitting [facility] Primary Care Unavailable MD Justice Storm Primary Care Provider [phone] MD Justice Storm Other Provider ABE Ferrera Attending Provider Anesthesiologist, Temporary Attending Provider U prabhu Bonnie Tan Unavailable MD Lyla Nazario Attending Provider MD Jose Martin Mchugh Attending Provider MD Theo Thakkar Attending Provider Jose Martin Mchugh Unavailable MD Dotty [facility] Primary Care Provider Anesthesiologist, Temporary Attending Provider U MD Lyla Carvalho Attending Provider MD Jose Martin Mchugh Attending Provider MD Theo Thakkar Attending Provider MD Yahaira Stormikh Primary Care Provider MD Justice Storm Attending Provider [phone] Dotty MAK [facility] Primary Care Provider JOSE NICHOLS Referring [facility] Primary Care Unavailable KODI REYNOLDS Attending Unavailable Dotty MAK [facility] Primary Care Provider CHAIM GRAYSON Referring [facility] Primary Care Unavailable CHAIM GRAYSON Referring [facility] Primary Care Unavailable CHAIM GRAYSON Referring [facility]available [facility] Primary Care Unavailable Nicolette MAK, Adalid Powers Attending Unavailable Dotty MAK [facility] Primary Care Provider MD Yahaira Stormikh Primary Care Provider MD Justice Storm Attending Provider MD Barbara Johnston Referring Provider Yahaira Storm MDikh Primary Care Provider NO FAMILY, PHYSICIAN Primary Care Provider Unava ilMD Theo Grigsby Attending Provider MS. [facility] WARDY DENZEL Primary Care P hysician Barbara JOHNSTON Attending [facility] BRITNI, CLAIRE E Admitting Unavailable BRITNI, CLAIRE E Attending Unavailable BRITNI, CLAIRE E Admitting Unavailable BRITNI, CLAIRE E Attending Unavailable Galthao, Karime J Admitting Unavailable Galthao, Karime Stone Attending [facility]available [facility] Unavailabl e Barbara JOHNSTON Attending Unavailable BRITNI, CLAIRE E Attending Unavailable Galthao, Karime Stone Attending [facility]available [facility] Unavailaudie Avalos MD, Brian Primary Care Provider Ed AQUACULTURE PROGRAM DIRECTOR, Nasir Unavailable [phone] Brian Avalos MD Primary Care Provider [phone] Farooq Quezada PA-C Emergency Provider [phone] NASIR WARD Attending Unavailabl SHAIKH Schmidt Attending Unavailable SHAIKH STORM Attending Unavailable NASIR WARD Attending Unavailabl e NASIR WARD Attending Unavailabl AMBROSIO Galvan Primary Care Physician Brian Avalos MD Primary Care Provider Farooq Quezada PA-C Emergency Provider Theo Thakkar MD Attending Provider [phone] OrzeCherie byrne X Attending Unavailable Orzech Cherie X Admitting Unavailable BRITNI, CLAIRE E Attending Unavailable BRITNI, CLAIRE E Admitting Unavailable Barbara JOHNSTON Attending Unavailable Shaikh Storm MD Primary Care Provider BRITNI, CLAIRE E Attending Unavailable BRITNI, CLAIRE E Admitting Unavailable Ward AQUACULTURE PROGRAM DIRECTOR, [facility] Unavailable Barbara Johnston MD Unavailable Genoveva NAZARIO Attending Unavailable FAWWAD, CARREON Primary Care Unavailable Genoveva NAZARIO Referring Unavailable DOTTY, [facility] Unavailable Bailey MAK, Brian Primary Care Provider [phone] Ed HANSON, Nasir Unavailable Bailey MAK, Brian Primary Care Provider Vivian MAK, Theo Attending Provider CLAIRE JAMES Attending Unavailable Barbara Johnston MD Attending Provider Savannah DO, [facility] Primary Care Provider [facility] DO, [facility] Attending Provider JOSE HECTOR Attending Unavailable CHAIM GRAYSON Referring Unavailable DOTTY [facility] Primary Care Unavailable VASILE MADERA Referring Unavailable VASILE MADERA Attending Unavailable NICKOLAS BENÍTEZ Attending Unavailable Brian Avalos Primary Care Unavailable Farooq Quezada Attending Unavailable Farooq Quezada Admitting Unavailable Barbara Johnston Attending Unavailable Barbara Johnston Admitting Unavailable Theo Thakkar Admitting Unavailable Brian Avalos Primary Care Unavailable Theo Thakkar Attending Unavailable Dotty MAK, [facility] Primary Care Provider Dotty MAK, [facility] Primary Care Provider Barbara JOHNSTON Attending Unavailable Barbara JOHNSTON Attending Unavailable PRESTON, Barbara Warner Referring Unavailable PRESTON, Barbara Warner Admitting Unavailable Barbara JOHNSTON Attending Unavailable Barbara JOHNSTON Attending Unavailable Barbara JOHNSTON Attending Unavailable LUCINA WARDTANY [facility] Unavailabl e CLAIRE JAMES Attending Unavailable ED [facility] Unavailaudie e Allergies Allergy ClassificationReported Allergen(s)Allergy TypeDate of OnsetReaction(s) Facility (20 sources)ezetimibe; Translations: [EZETIMIBE]Drug Cvfsliw59-89-4349AE intolerance, Nausea/[facility]iting[facility] (8 sources)HMG-CoA reductase inhibitor; Translations: [VSQTZTI-WKO-HIT REDUCTASE INHIBITORS]Drug Ycitpqzcijs48-44-3039IqzqvEheubmwthkParkview Health [facility] Work Phone: (16 sources)HMG-CoA reductase inhibitorDrug Pahvadjrmyo18-59-5975JkqapOCNU Healthcare Medications Current Medications MedicationDrug Class(es)DatesSig (Normalized)Sig (Original)acetaminophen 325 mg oral tablet (14 sources)Start: 90-63-5246wvtg 2 tablets by mouth every eight hours acetaminophen (Tylenol) 325 MG tablet Take 650 mg by mouth every 8 (eight) hours 11/18/2023 Activeacetaminophen 325 mg / HYDROcodone bitartrate 5 mg oral tablet (20 sources)Opioid AgonistStart: 46-59-1725mnqo 1 tablet by mouth once daily as neededStart: 01-14-2024 End: 00-61-7475DEWMAxcfyyl-acetaminophen ([place]ster) 5-325 MG tablet TAKE 1 TABLET BY MOUTH 2 TO 3 TIMES A DAY FOR 14 DAYS 01/14/2024 07/13/2024 DiscontinuedStart: 01-08-2023 End: 45-03-9267bepp 1 tablet by mouth three times daily as needed for pain Hydrocodone-Acetaminophen 7.5-325 mg tablet Discontinued 1 TAB PO Three times daily as needed for Pain February 06, 2023 12:00am February 29, 2024 11:39amStart: 11-09-2021 End: 09-12-3055siqa 1 tablet by mouth twice daily as needed for painHydrocodone- Acetaminophen 5-325 mg tablet Discontinued 1 TAB PO Twice daily as needed for Pain 2021 12:00am February 06, 2023 11:57amStart: 11-09-2021 End: 15-90-5688TWGKKtyxzwi-acetaminophen (NORCO) 5-325 mg per tablet 11/09/2021 12/15/2023 Discontinued (Discontinued by another Health Care Provider)Start: 59-91-0740qxax 1 tablet by mouth every six hoursNorco 5/325 Tab Oral, q6hr, Refill(s) 0 Start Date: 03/22/21 Status: Ordered Medication Dispense Status: Completed Total Allowed Fills: 1 Fills Dispensed: 0Start: 79-78-3589ugob 1 tablet by mouth every six hoursNorco 5/325 Tab Oral, q6hr, Refill(s) 0 Start Date: 03/22/21 Status: Ordered Repeat number: 1Start: 07-09-1346Bmvwk 5/325 Tab Oral, q6hr, Refill(s) 0 Start Date: 03/22/21 Status: OrderedStart: 03-22-2021 Brewster 5/325 Tab Oral, q6hr, Refill(s) 0 Start [...] oral tablet (20 sources)Dihydropyridine Calcium Channel BlockerStart: 44-30-0194kkwm 1 mg by mouth once dailyamLODIPine 5 mg Tab mg tab(s), Oral, Daily, Refills(s) 0 Start Date: 03/22/21 Status: OrderedStart: 03-22-2021 End: 05-76-9356leYCJQRrce 10 mg Tab 10 mg = 1 tab(s), Refills(s) 0 Start Date: 04/18/24 Status: Ordered MedicationDispense Status: Completed Total Allowed Fills: 1 Fills Dispensed: 0Comment on above:amlodipine 10 mg tabletamoxicillin 500 mg oral capsule (2 sources)Penicillin-class AntibacterialStart: 92-24-0596exjq 1 capsule by mouth every eight hoursAmoxicillin 500 MG 1 capsule Orally every 8 hrs for 5 day(s) Mar, Activeaspirin 81 mg delayed release oral tablet (20 sources)Platelet Aggregation Inhibitor, Nonsteroidal Anti-inflammatory Drug Start: 84-40-3251gsqg 1 tablet by mouth once dailyStart: 37-48-6221lpij 1 mg by mouth every four hoursaspirin 81 mg oral capsule mg cap(s), Oral, q4hr, Refills(s) 0 Start Date: 03/22/21 Status: OrderedMedication Dispense Status: Completed Total Allowed Fills: 1 Fills Dispensed: 0Start: 42-21-7168cwqrmvn 81 mg cap Take by mouth. 03/22/2021 ActiveASPIRIN 81 MG chewable tablet Chew 81 mg in the morning. Activetake 1 tablet by mouth once dailyAspirin 81 81 MG 1 tablet Orally Once a day ActiveComment on above:Take by mouth.cephalexin 500 mg oral capsule (1 source)Cephalosporin AntibacterialStart: 08-08-2024 End: 29-01-5740brqy 1 capsule by mouth every twelve hoursKeflex 500 mg Cap 500 mg = 1 cap(s), Oral, q12hr, X 7 day(s), # 14 cap(s), Refills(s) 0, Pharmacy: [facility]/pharmacy #[id number], 178, cm, 08/08/24 12:38:00 EDT, Height/Length Dosing, 90.4, kg, 08/08/24 12:38:00 EDT, Weight Dosing Start Date: 08/08/24 Stop Date: 08/15/24 Status: Orderedclopidogrel 75 mg oral tablet (20 sources)P2Y12 Platelet InhibitorStart: 03-23-2023 End: 68-34-8752gesrnoqrxti 75 mg Tab 75 mg = 1 tab(s) Start Date: 04/21/23 Status: Ordered Medication Dispense Status: Completed Total Allowed Fills: 1 Fills Dispensed: 0Clopidogrel Bisulfate ActiveCranberry preparation (4 sources)Non-Standardized Food Allergenic Extract, Non-Standardized Plant Allergenic ExtractStart: 85-69-4049Cch cranberry Refill(s) 0 Start Date: 09/18/23 Status: Orderedcyclobenzaprine hydrochloride 10 mg oral tablet (2 sources)Muscle RelaxantStart: 94-86-3334phhj 1 tablet by mouth once daily at bedtimedesmopressin acetate 0.1 mg oral tablet (7 sources)Vasopressin Analog, Factor VIII ActivatorStart: 05-05-2023 End: 67-35-1214xbvk 1 tablet by mouth once daily at bedtimedesmopressin (DDAVP) 0.1 mg tablet Take 1 tablet (100 mcg) by mouth once daily at bedtime. 05/05/2023 08/30/2024 Discontinued (Therapy completed)Start: 04-21-2023 End: 78-12-9532feqr 0.5 tablet by mouth at bedtimedesmopressin 0.1 mg oral tablet 0.05 mg = 0.5 tab(s), Oral, As Directed, take a half tab at bedtime, X 10 day(s), # 5 tab(s), Refills(s) 0, Pharmacy: [facility] #[id number], 178, cm, 04/21/23 8:36:00 EST, Height/Length Dosing, 92, kg, 04/21/23 8:36:00 EST, Weight Dosing Start Date: 04/21/23 Stop Date: 05/01/23 Status: OrdereddiazePAM 5 mg oral tablet (3 sources)BenzodiazepineStart: 03-03-2022 End: 89-03-8727yncowWTR (VALIUM) 5 mg tablet Indications: Malignant neoplasm [...] oral capsule (9 sources)Tetracycline-class DrugStart: 04-07-2024 End: 35-54-2039jrfj 1 capsule by mouth twice dailydoxycycline hyclate 100 mg Cap 100 mg = 1 cap(s), Oral, BID, X 7 day(s), # 14 cap(s), Refills(s) 0,Pharmacy: [facility] #[id number], 178, cm, 09/18/23 10:55:00 EDT, Height/Length Dosing, 92, kg,09/18/23 10:55:00 EDT, Weight Dosing Start Date: 04/07/24 Stop Date: 04/14/24 Status: OrderedStart: 02-29-2024 End: 93-35-9109hmad 1 tablet by mouth twice dailyDoxycycline Hyclate 100 mg tablet Discontinued 100 MG PO Twice daily 14 February 29, 2024 12:00am August 15, 2024 10:38amergocalciferol 1.25 mg oral capsule (20 sources)Provitamin D2 CompoundStart: 03-11-2024 End: 47-67-4021pdvb 1 capsule by mouth every weekStart: 60-72-4070syyw 1 capsule by mouth every weekErgocalciferol (Vitamin D2) 1,250 mcg (50,000 unit) capsule Active 0 .ROUTE .COMPLEX March 11, 2024 10:14am TAKE 1 CAPSULE BY MOUTH ONCE A WEEKStart: 88-89-4916qddf 1 capsule by mouth every weekErgocalciferol (Vitamin D2) 1,250 mcg (50,000 unit) capsule Active 0 .ROUTE .COMPLEX March 11, 2024 9:14am TAKE 1 CAPSULE BY MOUTH ONCE A WEEKStart: 09-15-2023 End: 35-42-6345Eatizglehtfjfu (Vitamin D2) 1,250 mcg (50,000 unit) capsule Discontinued 23837 UNIT PO Once a week 14 06September 15, 2023 5:43pm March 11, 2024 10:15amStart: 09-15-2023 End: 76-90-0332zukk 22869 [IU] by mouth every weekErgocalciferol (Vitamin D2) Active 66603 UNIT PO Once a week September 15, 2023 5:43pmStart: 23-26-6264pckv 1 capsule by mouth every weekErgocalciferol 1.25 MG (49103 UT) 1 capsule Orally Q week for 90 days Mar, Activetake 1 capsule by mouth every week ergocalciferol (Vitamin D-2) 1.25 MG (69890 UT) capsule Take 1 capsule (1,250 mcg) by mouth 1 (one)time per week. Activeergocalciferol, vitamin D2, (VITAMIN D2 ORAL) (4 sources)ergocalciferol, vitamin D2, (VITAMIN D2 ORAL) Take by mouth. Active ergocalciferol, vitamin D2, (VITAMIN D2 ORAL) Take by mouth. 0 ActiveComment on above:Take by mouth.ezetimibe 10 mg oral tablet (2 sources)Dietary Cholesterol Absorption InhibitorStart: 33-94-6135yocs 1 mg by mouth once dailyezetimibe 10 mg Tab mg tab(s), Oral, Daily, Refills(s) 0 Start Date: 03/25/21 Status: Orderedferrous sulfate 325 mg oral tablet (2 sources)Start: 51-56-1257peub 1 tablet by mouth every other daygabapentin 100 mg oral capsule (20 sources)Anti-epileptic AgentStart: 02-11-2023 End: 85-02-7463qvct 1 capsule by mouth twice dailygabapentin (Neurontin) 100 mg capsule Take 1 capsule (100 mg) by mouth 2 times a day. 02/11/2023 08/30/2024 Discontinued (Therapy completed)Start: 02-06-2023 End: 86-51-2481iwnm 1 capsule by mouth once dailyGabapentin 100 mg Capsule Discontinued 100 MG PO Daily February 06, 2023 12:00am August 15, 021039:38am Start: 34-81-5151tgwz 1 mg by mouth once dailyGabapentin Active MG PO Daily February 06, 2023 12:00amhydroCHLOROthiazide 12.5 mg / lisinopril 20 mg oral tablet (2 sources)Thiazide Diuretic, Angiotensin Converting Enzyme InhibitorStart: 67-52-3217zuci 1 tablet by mouth once dailyhydrochlorothiazide-lisinopril 12.5 mg-20 mg Tab tab(s), Oral, Daily, Refill(s) 0 Start Date: 03/22/21 Status: Orderediv contrast (will be provided with radiology test) (3 sources)Start: 01-06-2023 End: 40-00-8273tr contrast (will be provided with radiology test) [...] link. 1 Each 01/07/2023 ActiveStart: 11-21-2022 End: 49-12-9862zn contrast (will be provided with radiology test) [...] Each 0 11/21/2022 11/22/2022 ActiveStart: 11-19-2022 End: 94-19-1429gm contrast (will be provided with radiology test) [...] mg oral tablet (2 sources)Leukotriene Receptor AntagonistStart: 38-66-3038thsm 1 mg by mouth once dailymontelukast 10 mg Tab mg tab(s), Oral, Daily, Refills(s) 0 Start Date: 03/25/21 Status: Orderednitroglycerin 0.4 mg sublingual tablet (15 sources)Nitrate VasodilatorStart: 31-76-1809szdezyzyqcvbk 0.4 mg sublingual Tab Refills(s) 0 Start Date: 09/18/23 Status: Ordered Medication Dispense Status: Completed Total Allowed Fills: 1 Fills Dispensed: 0Start: 08-18-2023 End: 98-78-6380Qxxlzwmskj XL 5mg (4 sources)Oxybutinin XL 5mg ONCE A DAY ActiveOxybutinin XL 5mg Activeoxybutynin chloride 5 mg oral tablet (19 sources)Cholinergic Muscarinic AntagonistStart: 22-35-3575bcrg 2 tablets by mouth at bedtimeoxybutynin 5 mg Tab 10 mg = 2 tab(s), Oral, Bedtime, # 60 tab(s), Refills(s) 3, Pharmacy: [facility] #[id number], 178, cm, 02/11/23 14:50:00 EDT, Height/Length Dosing, 92, kg, 02/11/23 14:50:00 EDT, Weight Dosing Start Date: 02/11/23 Status: OrderedStart: 02-06-2023 End: 47-43-3403mlrq 1 tablet by mouth once daily at bedtimeOxybutynin Chloride 5 mg Tablet Discontinued 5 MG PO Daily at bedtime February 06, 2023 12:00am October 15, 2023 9:17amStart: 04-16-7246tdsl 1 tablet by mouth at bedtimeoxybutynin 5 mg Tab 5 mg = 1 tab(s), Oral, Bedtime, # 30 tab(s), Refills(s) 2, Pharmacy: [facility] #[id number], 178, cm, 12/03/22 15:00:00 EDT, Height/Length Dosing, 93, kg, 12/03/22 15:00:00 EDT, Weight Dosing Start Date: 12/03/22 Status: Orderedpravastatin sodium 40 mg oral tablet (20 sources)HMG-CoA Reductase InhibitorStart: 03-23-2023 End: 43-37-3148ndsvlrcfwqj 40 mg Tab Refills(s) 0 Start Date: 04/21/23 Status: Ordered Medication Dispense Status:Completed Total Allowed Fills: 1 Fills Dispensed: 0Start: 03-22-2021 End: 26-68-4866wmav 1 tablet by mouth once dailyPravastatin 10 mg tablet Discontinued 10 MG PO Daily November 22, 2021 12:00am March 23, 2023 10:03am CADComment on above:pravastatin 10 mg tabletsildenafil 50 mg oral tablet (7 sources)Phosphodiesterase 5 InhibitorStart: 04-21-2023 End: 98-02-7109zdrfsvwggz (Viagra) 50 mg tablet Take 1 tablet (50 mg) by mouth if needed. 04/21/2023 08/30/2024 Discontinued (Therapy completed)tadalafil 20 mg oral tablet (4 sources)Phosphodiesterase 5 InhibitorStart: 25-51-2958Lwrgfw 20 mg Tab 20 mg = 1 tab(s), Oral, As Directed, Do not exceed 20mg within 48 hours., # 30 tab(s), Refills(s) 1, Pharmacy: [facility] #[id number], 178, cm, 07/07/23 9:25:00 EST, Height/Length Dosing, 92, kg, 07/07/23 9:25:00 EST, Weight Dosing Start Date: 07/07/23 Status: Orderedvalsartan 80 mg oral tablet (20 sources)Angiotensin 2 Receptor BlockerStart: 06-04-2023 End: 34-96-2429ijjruinvs 80 mg Tab Refills(s) 0 Start Date: 09/18/23 Status: Ordered Medication Dispense Status: Completed Total Allowed Fills: 1 Fills Dispensed: 0Varenicline (Chantix Starting Month Box) 0.5 mg (11)- 1 mg (42) tablets,dose pack (1 source)Start: 24-45-8755pukg 1 tablet by mouth onceVarenicline (Chantix Starting Month Box) 0.5 mg (11)- 1 mg (42) tablets,dose pack Active 0 PO per pa ckage directions February 29, 2024 12:00am PO PER PKG DIRvitamin B12 (2 sources)Vitamin J49Uubbz: 18-01-2981Lumtqcn B12 Refills(s) 0 Start Date: 03/22/21 Status: OrderedVitamin D2 50,000 intl units (1.25 mg) oral capsule (11 sources)Start: 24-07-4877nlcm 1 capsule by mouth every weekVitamin D2 50,000 intl units (1.25 mg) oral capsule International_Unit cap(s), Oral, qWeek Start Date: 04/21/23 Status: Ordered Medication Dispense Status: Completed Total Allowed Fills: 1 Fills Dispensed: 0Start: 58-83-1271csfq 1 capsule by mouth every weekVitamin D2 50,000 intl units (1.25 mg) oral capsule International_Unit cap(s), Oral, qWeek Start Date: 04/21/23 Status: Ordered Repeat number: 1Start: 49-95-0892dnmf 1 capsule by mouth every weekVitamin D2 50,000 intl units (1.25 mg) oral capsule International_Unit cap(s), Oral, qWeek Start Date: 04/21/23 Status: Ordered Completed/Discontinued Medications MedicationDrug Class(es)DatesSig (Normalized)Sig (Original)atenolol 50 mg oral tablet (20 sources)beta-Adrenergic BlockerStart: 03-22-2021 End: 25-64-3157qeiw 1 tablet by mouth once dailyAtenolol 50 mg tablet Discontinued 50 MG PO Daily November 22, 2021 12:00am October 15, 2023 9:17amComment on above:atenolol 50 mg tabletbaclofen 10 mg oral tablet (20 sources)gamma-Aminobutyric Acid-ergic AgonistStart: 11-04-2021 End: 86-81-3318tabm 1 tablet by mouth once daily at bedtimeBaclofen 10 mg tablet Discontinued 10 MG PO Daily at bedtime November 22, 2021 12:00am August 15, 2024 10:38am muscle spasmsStart: 11-04-2021 End: 80-38-7730caek 1 mg by mouth three times dailybaclofen 10 mg Tab mg tab(s), Oral, TID, Refills(s) 0 Start Date: 11/04/21 Status: OrderedComment on above: baclofen 10 mg tabletciprofloxacin 500 mg oral tablet (2 sources)Quinolone AntimicrobialStart: 56-90-7829thbi 1 tablet by mouth once dailyCipro 500 mg Tab 500 mg = 1 tab(s), Oral, Daily, Take 1 tablet the day before the procedure and 1 tablet after the procedure, # 2 tab(s), Refills(s) 0, Pharmacy: [facility]/pharmacy #[id number], 178, cm, 08/30/2511:03:00 EDT, Height/Length Dosing, 90, kg, 08/29/24 12:03:00 EDT, Weight Dosing Start Date: 02/21/25 Status: Ordered Medication Dispense Status: Completed Quantity: 2.0 Unit: tab(s) Total Allowed Fills: 1 Fills Dispensed: 0Start: 05-13-2022 End: 36-38-7071zmpq 1 tablet by mouth twice dailyciprofloxacin HCl (CIPRO) 500 mg tablet Take 1 tablet by mouth twice daily for 14 days. 20 tablet 05/27/2022 ActiveComment on above:Take 1 tablet by mouth twice daily for 14 days.lisinopril 20 mg oral tablet (20 sources)Angiotensin Converting Enzyme InhibitorStart: 03-13-2025 End: 00-78-0194zkmt 1 tablet by mouth once dailyLisinopril 20 mg tablet Discontinued 20 MG PO Daily March 13, 2025 12:00am March 14, 2025 11 :06amStart: 03-25-2021 End: 17-86-3544eyfgwaibim (ZESTRIL, PRINIVIL) 20 mg tablet q 24 HR. 03/25/2021 12/15/2023 Discontinued (Discontinued by another Health Care Provider)Start: 03-25-2021 End: 46-93-2558peke 1 tablet by mouth once dailyLisinopril 20 mg tablet Discontinued 20 MG PO Daily November 22, 2021 12:00am October 15, 2023 9:17am HTN Comment on above:q 24 HR.ofloxacin 3 mg/ml ophthalmic solution (6 sources)Quinolone AntimicrobialStart: 07-14-2024 End: 93-23-6844qpht 0.3 drop(s) into the eye(s) every six hoursOfloxacin 0.3 % drops Discontinued 2 DROPS EYE-LEFT Every 6 hours 5 0 July 14, 2024 1:00am August 15, 2024 10:38am 2 drps Left Eye;Start: 07-14-2024 End: 73-99-5290xnya 0.3 drop(s) into the eye(s) every six hoursOfloxacin 0.3 % drops Discontinued 2 DROPS EYE-LEFT Every 6 hours July 14, 2024 1:00am August 15, 2024 10:38am 2 drps Left Eye;omeprazole 40 mg delayed release oral capsule (17 sources)Proton Pump InhibitorStart: 09-28-2023 End: 68-48-9709bder 1 capsule by mouth once dailyOmeprazole 40 mg capsule,delayed release(DR/EC) Discontinued 40 MG PO Daily October 15, 2023 12:00am February 29, 2024 11:41amoxyCODONE hydrochloride 5 mg oral tablet (9 sources)Opioid AgonistStart: 12-02-2023 End: 29-59-3158jkqu 1 tablet by mouth every six hours as neededoxyCODONE IR (ROXICODONE) 5 mg immediate release tablet TAKE 1 TO 2 TABLETS BY MOUTH EVERY 6 HOURS NEEDED for up to 7 (SEVEN) days 12/02/2023 01/18/2025 Discontinued (Discontinued by Patient)pregabalin 50 mg oral capsule (20 sources)Start: 03-13-2025 End: 11-06-7655uvwk 1 capsule by mouth twice dailyPregabalin (Lyrica) 50 mg capsule Discontinued 50 MG PO Twice daily March 13, 2025 12:00am March 14, 2025 11:06amStart: 01-08-2023 End: 28-87-1990wfoa 1 capsule by mouth once daily at bedtimepregabalin (LYRICA) 75 mg capsule Take 1 capsule by mouth once daily. At bedtime. 0 01/08/202312/14 Discontinued (Discontinued by another Health Care Provider)Start: 11-22-2021 End: 22-00-0600oecx 1 capsule by mouth twice dailyPregabalin 50 mg capsule Discontinued 50 MG PO Twice daily November 22, 2021 12:00am February 06, 2023 11:58am nerve painStart: 91-19-3505yclh 1 capsule by mouth twice dailyLyrica 25 mg Cap 25 mg = 1 cap(s), Oral, BID, # 60 cap(s), Refills(s) 0 Start Date: 11/04/21 Status: OrderedComment on above:Take 50 mg by mouth twice daily.Take 1 capsule by mouth once daily. At bedtime.Take 50 mg by mouth two times a day.regadenoson (Lexiscan) injection 0.4 mg (2 sources)Start: 06-18-2023 End: 54-94-2847wwuhpogvfyr (Lexiscan) injection 0.4 mgterazosin 10 mg oral capsule (20 sources)alpha-Adrenergic BlockerStart: 10-04-2021 End: 15-09-2636xebs 1 capsule by mouth once daily at bedtimeTerazosin 10 mg capsule Discontinued 10 MG PO Daily at bedtime November 22, 2021 12:00am October 15, 2023 9:17am ProstateStart: 94-81-8784wwif 1 mg by mouth once daily at bedtime terazosin 2 mg Cap mg cap(s), Oral, Once a day (at bedtime), Refills(s) 0 Start Date: 03/22/21 Status: Orderedvarenicline 1 mg oral tablet (13 sources)Partial Cholinergic Nicotinic AgonistStart: 10-22-2023 End: 10-95-5413ztlf 1 tablet by mouth onceVarenicline Tartrate (Chantix Starting Month Box) 0.5 mg (11)- 1 mg (42) tablets,dose pack Discontinued 0 PO per package directions February 29, 2024 12:00am August 15, 2024 10:38am PO PER PKG DIRVarenicline Tartrate (Chantix Starting Month Box) 0.5 mg (11)- 1 mg (42) tablets,dose pack (3 sources)Start: 02-29-2024 End: 98-81-1031ewcn 1 tablet by mouth onceVarenicline Tartrate (Chantix Starting Month Box) 0.5 mg (11)- 1 mg (42) tablets,dose pack Discontinued 0 PO per package directions February 29, 2024 12:00am August 15, 2024 10:38am PO PER PKG DIRStart: 27-73-6826dwlf 1 tablet by mouth onceVarenicline Tartrate (Chantix [...] Translations: [Umbilical hernia without obstruction or gangrene]Onset: 552160-34-0828QqpfcssxJhdhd cerebrovascular disease (20 sources)Cerebrovascular accident; Translations: [Cerebral infarction, unspecified]Onset: 341450-00-5500LsbystxPiitlut disorders (20 sources)Anxiety; Translations: [Anxiety disorder, unspecified]Onset: 674570-02-9248NaushtbQbaqjy of prostate (20 sources)Malignant neoplasm of prostate; Translations: [Malignant tumor of prostate]Onset: 41-37-3936LuuwxlnNcylkyf on above:hx radiation treatmentsCancer of prostate (20 sources)History of malignant neoplasm of prostate; Translations: [Personal history of malignant neoplasm ofprostate]Onset: 79-07-9867EbvsumzqLaxaxoer (20 sources)Age-related nuclear cataract of left eye; Translations: [Age-related nuclear cataract, left eye]Onset: 834306-64-1388TtvqjzrHafocbo kidney disease (20 sources)Chronic kidney disease stage 3; Translations: [Stage 3 chronic kidney disease]Onset: 271223-29-6803RsebrnmKiqgicv kidney disease (6 sources)Chronic kidney disease; Translations: [Chronic kidney disease, stage III (moderate)]Onset: 10-24-2021 Resolved: 15-07-1116Nwfaajpo atherosclerosis and other heart disease (20 sources)History of myocardial infarction; Translations: [Old myocardial infarction]Onset: 742669-46-1295TkfaaovXbwjxcyxfj and other anemia (1 source)Anemia in chronic kidney disease; Translations: [Anemia in chronic kidney disease]Onset: 80-24-9451AuvauqfPdsegvrbc of lipid metabolism (20 sources)Hyperlipidemia; Translations: [Dyslipidemia]Onset: 10-24-2021 Resolved: 302292-72-6962AjsxgdiRwzvonozzl disorders (18 sources)Gastroesophageal reflux disease without esophagitis; Translations: [Gastro-esophageal reflux disease without esophagitis]Onset: 09-28-2023 04-71-8251KbyeeciYopdhonnh hypertension (20 sources)Hypertensive disorder; Translations: [Essential (primary) hypertension]Onset: 503009-85-9661RzgewkoNcjncjavhyada symptoms and ill- defined conditions (20 sources)Nocturia; Translations: [Nocturia]Onset: 43-60-0689Juholehh Hyperplasia of prostate (20 sources)Benign prostatic hypertrophy with outflow obstruction; Translations: [Benign prostatic hyperplasia with lower urinary tract symptoms]Onset: 07-95-0016MogkdjgBpspbklbbgoo with complications and secondary hypertension (20 sources)Chronic kidney disease due to hypertension; Translations: [Hypertensive chronic kidney disease withstage 1 through stage 4 chronic kidney disease, or unspecified chronic kidney disease]Onset: 10-24-2021 Resolved: 95-73-9049QnoswloHchxtkdcpbvy conditions of male genital organs (20 sources)Chronic prostatitis; Translations: [Chronic prostatitis]Onset: 697451-78-7424TcjvocuJmfznqhzgvrc conditions of male genital organs (14 sources)Nugxlcksmlw34-88-0360VstvytzhVpbidrggo; nephrosis; renal sclerosis (5 sources)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; Translations: [Nephrotic syndromewith diffuse mesangiocapillary glomerulonephritis]Onset: 030710-56-6956KielziwTrem wounds of head; neck; and trunk (6 sources)Laceration of left cornea; Translations: [Ocular laceration without prolapse or loss of intraoculartissue, left eye, initial encounter]07-14-2024 EpisodicOther acquired deformities (1 source)Lumbar spondylolisthesis; Translations: [Spondylolisthesis, lumbar region]11-23-2683BpdjcyyvNnwma acquired deformities (1 source)Spondylolisthesis, lumbar region; Translations: [Spondylolisthesis of lumbar region]Onset: 19-53-2963AjcqnlcwLuagm aftercare (1 source)Encounter for surgical aftercare following surgery on the circulatory systemEpisodicOther and ill-defined heart disease (20 sources)Heart disease; Translations: [Heart disease, unspecified]Onset: 06-04-2023 Resolved: 550070-05-8124YtflwekInxkw circulatory disease (20 sources)Disorder of carotid artery; Translations: [Disorder of arteries and arterioles, unspecified]Onset: 780329-90-3082TjmiezhBopnh circulatory disease (4 sources)Disorder of arteries and arterioles, unspecified; Translations: [Disorder of arteries and arterioles, unspecified (CMS/HCC)]Onset: 06-04-2023 ChronicOther connective tissue disease (3 sources)Muscle pain; Translations: [Myalgia, unspecified site]03-14-2025 EpisodicOther diseases of kidney and ureters (16 sources)Secondary hyperparathyroidism; Translations: [Secondary hyperparathyroidism of renal origin]59-48-8327BfasmmxBphuo diseases of kidney and ureters (6 sources)Secondary hyperparathyroidism of renal origin; Translations: [Secondary hyperparathyroidism (of renal origin)]Onset: 10-24-2021 Resolved: 29-57-3628FdukbbxGymas diseases of kidney and ureters (1 source)Urinary tract obstruction; Translations: [Other obstructive and reflux uropathy]Onset: 61-39-5929WrexcnfgMmycx diseases of kidney and ureters (20 sources)Kidney disease; Translations: [Disorder of kidney and ureter, unspecified]Onset: 076553-61-3721QiggogrbQdwak male genital disorders (20 sources)Male erectile dysfunction, unspecified; Translations: [Erectile dysfunction]Onset: 48-11-8795TazlztuBulie nervous system disorders (20 sources)Chronic pain syndrome; Translations: [Chronic pain syndrome]Onset: 736391-32-6444PldnvcfIaalp nervous system disorders (1 source)Other chronic pain; Translations: [OTHER CHRONIC PAIN]Onset: 09-60-9671MtflmjjMkuqf nutritional; endocrine; and metabolic disorders (4 sources)Overweight in adulthood with body mass index of 25 or more but less than 30; Translations: [Body mass index (BMI) 28.0-28.9, adult]Onset: 08-18-2023 21-64-4025EtpdbjnfXwmvkmjakq and visceral atherosclerosis (20 sources)Peripheral vascular disease, unspecified; Translations: [Peripheral vascular disease, unspecified]Onset: 04-27-2023 Resolved: 509052-48-1557YxpkkfeWibetug on above:legsResidual codes; unclassified (1 source)Other specified postprocedural statesEpisodicResidual codes; unclassified (1 source)Family history of ischemic heart disease and other diseases of the circulatory systemEpisodicSpondylosis; intervertebral disc disorders; other back problems (11 sources)Spondylosis without myelopathy or radiculopathy, lumbar region; Translations: [Other intervertebraldisc degeneration, lumbar region]Onset: 44-81-9888LtwffklVlhhoxpho-related disorders (20 sources)Smoker; Translations: [Nicotine dependence, unspecified, uncomplicated]Onset: 363115-31-5190OjlwrlmNselxrw on above:Added secondary to documentation in Social History.Unclassified (15 sources)Finding of sensation of jdayayu22-92-1223Hyrwitoaqfhb (4 sources)LOW BACK PAIN, UNSPECIFIED; Translations: [LOW BACK PAIN, UNSPECIFIED]Onset: 51-39-9614Ukxitpydaaxo (1 source)CONTACT W/AND (SUSP) EXPOS COVID-19; Translations: [CONTACT W/AND (SUSP) EXPOS COVID-19]Onset: 86-59-7571Piiuvtiiakvf (1 source)CHRN KIDNEY DISEASE STG 3 UNSP; Translations: [CHRN KIDNEY DISEASE STG 3 UNSP]Onset: 07-38-1846Hoctkpcpfrmq (1 source)Foreign body sensation, unspecified; Translations: [Foreign body sensation, unspecified]Onset: 30-59-9715Akdpnez tract infections (20 sources)Urinary tract infectious disease; Translations: [Urinary tract infection, site not specified]Onset: 62-68-4521Fxsiqnwp Past or Other Problems Problem ClassificationProblemDateDocumented DateEpisodic/ChronicCardiac dysrhythmias (20 sources)Bradycardia; Translations: [Bradycardia, unspecified]Onset: 037472-84-9266VdifmggcCvinuqqn mellitus without complication (16 sources)High glucose level in blood; Translations: [Hyperglycemia, unspecified]Onset: 381342-60-7778ZptshxnhNyax disorders (15 sources)Mood disordersOnset: 961187-74-3518Bnalhkbezyw chest pain (9 sources)Chest discomfort; Translations: [Other chest pain]Onset: 06-04-2023 94-63-5697CvrohcntIelpr connective tissue disease (4 sources)Other muscle spasm; Translations: [OTHER MUSCLE SPASM]Onset: 07-72-8378FkauhohhOcbwk connective tissue disease (16 sources)Synovial cyst of lumbar spine; Translations: [Other bursal cyst, other site]Onset: 937350-92-1879LscjfcxkPuign nutritional; endocrine; and metabolic disorders (2 sources)Body mass index (BMI) 28.0-28.9, adult; Translations: [Body mass index (BMI) 28.0-28.9, adult]Onset: 16-63-6260VspmehysCllooewh codes; unclassified (18 sources)Tobacco user; Translations: [Tobacco use]Onset: EpisodicResidual codes; unclassified (16 sources)Weight change finding; Translations: [Other general symptoms and signs]Onset: 73-66-687004416989-08-3117LtgacidzZeduopcjsyp; intervertebral disc disorders; other back problems (20 sources)Spinal stenosis, lumbar region without neurogenic claudication; Translations: [Intervertebral disc disorders with radiculopathy, lumbar region] Onset: 43-47-4081XymztoinSvezvvghwhfg (1 source)LOW BACK PAIN, UNSPECIFIED; Translations: [LOW BACK PAIN, UNSPECIFIED] Onset: 86-92-3670Mqjshfytzdfk (5 sources)Onset: 06-04-2023 Resolved: Results Test NameValueInterpretationReference RangeFacilityUrology Office/Clinic Noteon 63-63-3738Gmcxots Office/Clinic NoteUrology Office/Clinic Note Chief Complaint Review [...] [facility] [address], [place] [address]- Additional Instructions: 6 mos with another PSA [...] bladder emptying Follicular cystit (more content not included)...[facility] CenterComment on above:Result Comment: Electronically Signed By: Barbara JOHNSTON MD\.br\Date and Time Signed: 04/03/25 12:46 EST\.br\Electronically Co- Signed By: Fauzia Leon\.br\Date and Time Co-Signed: 04/03/25 12:44 EST Ambulatory Visit Summaryon 66-57-9797Kqwrxfbzpu Visit SummaryAmbulatory Visit Summary YESENIA BROUSSARD :1945 Visit Date:03/29/2025 Ambulatory Visit Instructions Your Care Team Attending Physician - Barbara JOHNSTON MD Primary Care Physician - AMBROSIO SCALES CNP This Is Your Medications List acetaminophen-hydrocodone ([place] 5/325 Tab) amlodipine (amLODIPine 10 mg Tab) [...] Barbara JOHNSTON MD Where: [facility] [address] [address]- Thursday 9:45 AM EST With: Barbara JOHNSTON MD Where: [facility] [address] [address]- Medications What How Much When Instructions Unchanged acetaminophen-hydrocodone ([place] 5/ 325 Tab) By Mouth Every 6 [...] signed up for this yet, please contact [facility] at [phone] to get signed up today. Language Information Language assistance services are available as needed. [facility] 03-23-2025 Specimen: [id number] Received: 03/23/25 Status: ALIE Deandre Num: [id number] Spec Type: Surgical Subm Dr: Barbara Johnston MD Tissues: A Urinary Bladder - TUR (BLADDER TUMOR) Procedures: KAYLA, Gross/Shira L5 Age/ Patient Sex Location Account Attending Physician Yesenia Broussard 79/M LABELL [id number] Barbara Johnston MD SPEC NUM: [id number] RECD: 03/23/25 STATUS: ALIE LUCIA NUM: [id number] MICHAEL: 03/23/25 [facility] DR: Barbara Johnston MD ENTERED: 03/23/[address] [facility] [address]: Bryan Arias SPEC TYPE: Surgical DEPT: [facility] ENTERED BY: [id number] RECV BY: [id number] ORDERED: HE, Gross/Micro L5 ORDERED: HE, Gross/Micro [...] submitted in a single cassette. (1, danielle, [id number] A) J Microscopic Description Microscopic examination is performed. CPT Codes 50033 Specimen: [id number] Received: 03/23/25 Status: ALIE Lucia Num: [id number] Spec Type: Surgical Subm Dr: Barbara Johnston MD Tissues: A Urinary Bladder - TUR (BLADDER TUMOR) Procedures: Yari GARZA/Shira L5 Patient: Yesenia Broussard [id number] (Continued) Signed (signature on file) Mani Hernandez MD 03/24/25 1305Normal [facility] GroupFollow-Upon 43-74-9445Mbpnyp-[id number] Yesenia Broussard 1945 M Date Provider Department Center 03/15/2025 Fabio-VASILE MADERA ONC DCC Family History Problem Relation Age of Onset Hypertension Mother Diabetes Father Family Status - Relation Status Age at Mother Father Level of Service:[address] [place] OFFICE/OUTPATIENT ESTABLISHED LOW MDM 20 [facility] HospitalActivated partial thromboplastin time (aPTT) in platelet poor plasma by coagulation aOrdered By: Barbara Johnston on 03-13-2025 aPTT Coag (PPP) [Time]24.5 s22.3-36.2FSalem Regional Medical CenterBasophils Auto (Bld) [#/Vol]Ordered By: Barbara Johnston on 63-95-9034Lqptxangl (Bld) [#/Vol]0.0 10 3/uL0.0-0.1FSalem Regional Medical CenterBasophils/100 WBC Auto (Bld)Ordered By: Barbara Johnston on 58-89-3382Mejquyzbt/100 WBC (Bld)0.3 % 0.2-2.0[facility] CenterEosinophils/100 WBC Auto (Bld)Ordered By: Barbara Johnston on 88-48-0424Sezujvzziid/100 WBC (Bld)3.2 %0.9-7.0[facility] CenterErythrocyte distribution width Auto (RBC) [Ratio]Ordered By: Barbara Johnston on 25-46-6232Ucmnclhocbm distribution width (RBC) [Ratio]13.5 %11.0-15.0[facility] Medical CenterGlomerular filtration rate (GFR) estimation in non- AmericanOrdered By: Barbara Johnston on 03-13-2025 GFR/1.73 sq M.predicted among non-blacks MDRD (S/P/Bld) [Vol rate/Area]29 mL/min/{1.73_m2}Low>=60 mL/min/1.73m 2FSalem Regional Medical Center Hematocrit Auto (Bld) [Volume fraction]Ordered By: Barbara Johnston on 03-13-2025 Hematocrit (Bld) [Volume fraction]36.4 %Low42.0-54.0[facility] CenterHemoglobin [Mass/volume] in BloodOrdered By: Barbara Johnston on 03-13-2025 Hemoglobin (Bld) [Mass/Vol]12.0 g/dLLow14.0-18.0[facility] CenterINR in Platelet poor plasma by Coagulation assayOrdered By: Barbara Johnston on 27-62-1271GVL Coag (PPP) [Relative time]0.97 {INR}[facility] Medical CenterComment on above:DESIRED INR:2.0-3.0 CONDITIONS NOT LISTED BELOW2.5-3.5 FOR PROSTHETIC HEART VALVE REPLACEMENT2.5-3.5 RECURRENT THROMBOSISLaboratory - Chemistry and Chemistry - challengeOrdered By: Barbara Johnston on 03-13-2025 Calcium [Mass/Vol]8.5 mg/dL8.5-10.1FSalem Regional Medical CenterChloride [Moles/Vol]109 mmol/LOesm68-893LjxxrqklnMetrohealth Parma Medical CenterCO2 [Moles/Vol] 23.3 mmol/L21.0-32.0[facility] CenterCreatinine [Mass/Vol]2.20 mg/dLHigh0.70-1.30[facility] CenterGFR/1.73 sq M.predicted MDRD (S/P/Bld) [Vol rate/Area]35 mL/min/{1.73_m2}Low>=60 mL/min/1.73m 2FSalem Regional Medical CenterGlucose [Mass/Vol]148 mg/eBRqaj36-964GstvpbxvvMetrohealth Parma Medical CenterPotassium [Moles/Vol]4.6 mmol/L3.5-5.1FDoctors Hospitalodium [Moles/Vol]142 mmol/V217-695TsiakvfbsMetrohealth Parma Medical CenterUrea nitrogen [Mass/Vol]25.0 mg/dLHigh7.0-18.0[facility] CenterUrea nitrogen/Creatinine [Mass ratio]11.4 mg/mgMetrohealth Parma Medical Center Laboratory - Hematology and Cell countsOrdered By: Barbara Johnston on 03-13-2025 Immature granulocytes/100 WBC (Bld)0.4 %0.0-0.5FSalem Regional Medical Center Leukocytes [#/volume] corrected for nucleated erythrocytes in Blood by Automated counOrdered By: Barbara Johnston on 88-66-8785ECZ corrected for nucl RBC Auto (Bld) [#/Vol]7.4 10 3/uL4.0-11.0[facility] CenterLymphocytes Auto (Bld) [#/Vol]Ordered By: Barbara Johnston on 11-23-9327Hgndzakkorn (Bld) [#/Vol]1.2 10 3/uL1.2-3.8[facility] CenterLymphocytes/100 WBC Auto (Bld)Ordered By: Barbara Johnston on 99-47-3358Mmbpmbsnsge/100 WBC (Bld)16.2 %Low20.5-60.0[facility] CenterH Auto (RBC) [Entitic mass] Ordered By: Barbara Johnston on 82-84-4137KEF (RBC) [Entitic mass]31.3 pg25.9-34.0 [facility] CenterMCHC Auto (RBC) [Mass/Vol]Ordered By: Barbara Johnston on 73-68-9103YRXW (RBC) [Mass/Vol]33.0 g/dL29.9-35.2FSalem Regional Medical CenterMCV Auto (RBC) [Entitic vol]Ordered By: Barbara Johnston on 82-53-6173SVM (RBC) [Entitic vol]95.0 rCFxrv33.0-94.0[facility] CenterMonocytes Auto (Bld) [#/Vol]Ordered By: Barbara Johnston on 03-13-2025 Monocytes (Bld) [#/Vol]0.6 10 3/uL0.3-0.8[facility] Monocytes/100 WBC Auto (Bld)Ordered By: Barbara Johnston on 03-13-2025 Monocytes/100 WBC (Bld)8.1 %1.7-12.0[facility] CenterNeutrophils Auto (Bld) [#/Vol]Ordered By: Barbara Johnston on 57-65-7113Cagnbavapls (Bld) [#/Vol]5.3 10 3/uL1.4-6.5FSalem Regional Medical CenterNeutrophils/100 WBC Auto (Bld)Ordered By: Barbara Johnston on 97-73-6870Hnkwolbcger/100 WBC (Bld)71.8 %43.0-75.0[facility] CenterNo Panel InformationOrdered By: Barbara Johnston on 38-34-3665Ipamiprzgcf # (Auto)0.2 10 3/uL0.0-0.7FSalem Regional Medical CenterImmature Granulocyte # (Auto)0.03 10 3/uL0.00-0.03 [facility] CenterPlatelet mean volume Auto (Bld) [Entitic vol] Ordered By: Barbara Johnston on 07-42-8208Hiyacujk mean volume (Bld) [Entitic vol] 10.6 fL9.5-13.5FSalem Regional Medical CenterPlatelets Auto (Bld) [#/Vol] Ordered By: Barbara Johnston on 37-66-4047Tkgampekq (Bld) [#/Vol]266 10 3/uL 150-450[facility] CenterProthrombin time (PT)Ordered By: Barbara Johnston on 03-56-8353EQ Coag (PPP) [Time]10.3 s9.0-11.6FSalem Regional Medical CenterRBC Auto (Bld) [#/Vol]Ordered By: Barbara Johnston on 67-69-1135UTH (Bld) [#/Vol]3.83 10 6/uLLow4.70-6.10[facility]ima Memorial Hospitalerum or plasma anion gap determinationOrdered By: Barbara Johnston on 75-27-9481Mjlff gap [Moles/Vol]14.3 mmol/[facility] CenterMain OR Intraoperative Recordon 03-60-6817Zdsu OR Intraoperative RecordMain OR Intraoperative Record IntraOp Document Type FTURO Summary Primary Physician: Barbara JOHNSTON MD Finalized Date/Time: 03/07/25 14:17:54 Pt. Name: YESENIA BROUSSARD/Sex: 1945 Male Med Rec #: [id number] Physician: Barbara JOHNSTON MD Financial #: [id number] Pt. Type: O Room/Bed: / Admit/Disch: 03/07/25 [...] Kendall R Role Performed Surgeon - Primary [employer]iter - Primary Scrub - Primary Time In [...] Prep Agents Betadine Scrub Skin. Condition Intact, [place], Warm, & Dry Additional None Specimens Collected [...] Document Signatures Signed By: Ethan Bundy 03/07/25 14:17[facility] CenterMain OR Preoperative Recordon 35-59-4146Tkke OR Preoperative RecordMain OR Preoperative Record Holding Area Document Type FTURO Summary Primary Physician: Barbara JOHNSTON MD Finalized Date/Time: 03/07/25 13:56:28 Pt. Name: YESENIA BROUSSARD/Sex: 1945 Male Med Rec #: [id number] Physician: Barbara JOHNSTON MD Financial #: [id number] Pt. Type: O Room/Bed: / Admit/Disch: 03/07/25 [...] Document Signatures Signed By: Zakiya Dumas 03/07/25 13:56NoFirelands Regional Medical CenterOperative Reporton 45-39-7396Vplnsizbe ReportOperative Report Patient: YESENIA BROUSSARD Age: 79 [...] and transurethral resection of bladder lesions under anesthesia..[facility] CenterComment on above:Result Comment: Electronically Signed By: PRESTON MAK, Barbara Coy.br\Date and Time Signed: 03/07/25 14:22 EDTGlomerular filtration rate (GFR) estimation in non- AmericanOrdered By: Barbara Johnston on 53-54-3455PJP/1.73 sq M.predicted among non-blacks MDRD (S/P/Bld) [Vol rate/Area]30 mL/min/{1.73_m2}Low>=60 mL/min/1.73m [address] [place], [place] [address]Laboratory - Chemistry and Chemistry - challengeOrdered By: Barbara Johnston on 70-35-2798Sixshfdhvr [Mass/Vol]2.14 mg/dL High0.70-1.30[facility] CenterGFR/1.73 sq M.predicted MDRD (S/P/Bld) [Vol rate/Area]36 mL/min/{1.73_m2}Low>=60 mL/min/1.73m [address] [place] [address] 99-43-9178HfyawqugqLblusbmsw From: Bhavana Banks To: TRISTIN Johnston; Sent: [...] Pt had Ct scan done today at [facility] for his back. Not sure what was ordered. Report not available yet. Pt sched for 03/07/25 at [facility] for cysto Order [facility]gram.[facility]CT Lumbar spine WO contraston 44-72-5855[place] [address] [place] Scan Report Signed Patient: YESENIA BROUSSARD MR#: [id number] : 1945 Acct:[id number] Age/Sex: 79 / M ADM Date: 02/21/25 Loc: CT Attending Dr: Loco Ferrera NP Ordering Physician: Loco Ferrera NP Date of Service: 02/21/25 Procedure(s): CT lumbar spine wo con Accession Number(s): [id number] cc: Shaikh Joanna Storm [place] [address] Patient Name: YESENIA BROUSSARD MRN: [id number] date: 1945 Sex: M Assigned Patient Location: CT Current Patient Location: CT Accession/Order Number: [id number] Exam Date: 02/21/2025 10:02 Report Date: 02/21/2025 [...] Waite M.D. 02/21/2025 11:31 AM Dictation Location: [place] [address] Electronically authenticated by: [id number] Y Date: 02/21/2025 11:31 Dictated By: Lorelei Waite M.D. Signed By: 02/21/25 1134 DD/ 1131 (more content not included)...TBHRadiology, Radiologist, - 02/21/[address] [address] [address] Scan Report Signed Patient: YESENIA BROUSSARD MR#: [id number] : 1945 Acct:[id number] Age/Sex: 79 / M ADM Date: 02/21/25 Loc: CT Attending Dr: Loco Ferrera NP Ordering Physician: Loco Ferrera NP Date of Service: 02/21/25 Procedure(s): CT lumbar spine wo con Accession Number(s): [id number] cc: Shaikh Joanna Storm [place] [address] Patient Name: YESENIA BROUSSARD MRN: [id number] date: 1945 Sex: M Assigned Patient Location: CT Current Patient Location: CT Accession/Order Number: [id number] Exam Date: 02/21/2025 10:02 Report Date: 02/21/2025 [...] Waite M.D. 02/21/2025 11:31 AM Dictation Location: [place] [address] Electronically authenticated by: [id number] Y Date: 02/21/2025 11:31 Dictated By: Lorelei Waite M.D. Signed By: 02/21/25 1134 DD/ 1131 TD/TT: Package Sealer Machine: [facility] HealthcareRadiology Study observation (narrative)[facility] CenterCT Lumbar spine WO contrastOrdered By: Radiologist Radiology on 67-47-6119TUXXSSM DePaul Health Center Work Phone: Erythrocyte distribution width Auto (RBC) [Ratio] Ordered By: Theo Thakkar on 23-21-7733Thxiayvyfyy distribution width (RBC) [Ratio]13.6 %11.0-15.0[facility] Medical CenterGlomerular filtration rate (GFR) estimation in non- AmericanOrdered By: Theo Thakkar on 67-01-8323YNB/1.73 sq M.predicted among non-blacks MDRD (S/P/Bld) [Vol rate/Area]34 mL/min/{1.73_m2}Low>=60 mL/min/1.73m [address] [place] [address] CBC WITH PLATELET NO DIFFERENTIALon 79-34-7525Kzekctmxcwb distribution width (RBC) [Ratio]13.6 %11.0 - 15.0 %[facility]OM HealthcareHematocrit (Bld) [Volume fraction]39.3 %Low42.0 - 54.0 %[facility] HealthcareHemoglobin (Bld) [Mass/Vol]12.9 g/dLLow14.0 - 18.0 g/dLSSM DePaul Health CenterInterpretation and review of laboratory resultsAbnormalNortheast Regional Medical CenterH (RBC) [Entitic mass]30.9 pg25.9 - 34.0 pgNortheast Regional Medical CenterHC (RBC) [Mass/Vol]32.8 g/dL29.9 - 35.2 g/dLNortheast Regional Medical CenterV (RBC) [Entitic vol]94 fL80.0 - 94.0 fLSSM DePaul Health CenterPlatelet mean volume (Bld) [Entitic vol]10.3 fL9.5 - 13.5 fLSSM Health Cardinal Glennon [facility]'s [facility] GTD102FRPGMercy Hospital St. Louis RBC4.18LowSSM Health [facility] QJW8HZJDSSM DePaul Health CenterCLINISYNCNOMS HealthcareHematocrit Auto (Bld) [Volume fraction]Ordered By: Theo Thakkar on 49-76-3990Isqfrjjmvj (Bld) [Volume fraction]39.3 %Low42.0-54.0[facility] CenterHemoglobin [Mass/volume] in BloodOrdered By: Theo Thakkar on 78-87-4006Xyzhsbhukv (Bld) [Mass/Vol]12.9 g/dLLow14.0-18.0[facility] Medical CenterIron binding capacity [Mass/volume] in Serum or PlasmaOrdered By: Theo Thakkar on 07-36-2163Ojav binding capacity [Mass/Vol]354.0 ug/dL250.0-450.0 [facility] CenterIron saturation [Mass Fraction] in Serum or PlasmaOrdered By: Theo Thakkar on 98-63-1792Ngha saturation [Mass fraction]22.6 % [facility] CenterLaboratory - Chemistry and Chemistry - challengeOrdered By: Theo Thakkar on 92-51-7289Zmfwnaahx Ql (U)SMALLAbnormal NEGATIVEMetrohealth Parma Medical CenterGlucose (U) [Mass/Vol]NegativeNEGATIVE [facility] CenterKetones Ql (U)TRACE mg/dLAbnormalNEGATIVE [facility] CenterpH (U)5.5 [pH]5.0-9.0[facility]ima Memorial Hospitalpecific gravity (U) [Rel density]1.0251.005-1.025[facility] CenterUrobilinogen Qn (U)0.2 {Jing'U}/dL0.2-1.0[facility] CenterAlbumin [Mass/Vol]3.8 g/dL3.4-5.0[facility] Calcium [Mass/Vol]9.2 mg/dL8.5-10.1FSalem Regional Medical CenterChloride [Moles/Vol]106 mmol/J96-244FrpzqdlyzMetrohealth Parma Medical CenterCO2 [Moles/Vol]23.6 mmol/L21.0-32.0[facility] CenterCreatinine [Mass/Vol]1.93 mg/dL High0.70-1.30[facility] CenterFerritin [Mass/Vol]45.0 ng/mL 26.0-388.0[facility] CenterGFR/1.73 sq M.predicted MDRD (S/P/Bld) [Vol rate/Area]41 mL/min/{1.73_m2}Low>=60 mL/min/1.73m 2FSalem Regional Medical CenterGlucose [Mass/Vol]105 mg/rK75-784LnmpwntuuMetrohealth Parma Medical CenterIron [Mass/Vol]80.0 ug/dL65.0-175.0[facility] CenterMagnesium [Mass/Vol]2.0 mg/dL1.8-2.4FSalem Regional Medical Center Potassium [Moles/Vol]5.2 mmol/LHigh3.5-5.1FSalem Regional Medical Center Sodium [Moles/Vol]139 mmol/Y565-774KsvpipujyMetrohealth Parma Medical CenterUrate [Mass/Vol]6.6 mg/dL3.5-7.2FSalem Regional Medical CenterUrea nitrogen [Mass/Vol]28.0 mg/dLHigh7.0-18.0[facility] CenterUrea nitrogen/Creatinine [Mass ratio]14.5 mg/mgMetrohealth Parma Medical Center Laboratory - Specimen informationOrdered By: Theo Thakakr on 53-49-3225Dnohqumhkq (U)SL CLOUDYCLEDelaware County HospitalColor (U)LT. YELLOWYELCincinnati Shriners HospitalLaboratory - UrinalysisOrdered By: Theo Thakkar on 06-74-9022Ealipzjgm esterase Test strip Ql (U)LARGEAbnormalNEGATIVEMetrohealth Parma Medical CenterMucus Ql (Urine sed)NONE SEENNONE SEENMetrohealth Parma Medical CenterNitrite Ql (U)NegativeNEGATIVEMetrohealth Parma Medical Center Protein (U) [Mass/Vol]147.8 mg/dLHigh<=11.9[facility] Protein Ql (U)100 mg/dLAbnormalNEG/TRACEMetrohealth Parma Medical Center Leukocytes [#/volume] corrected for nucleated erythrocytes in Blood by Automated counOrdered By: Theo Thakkar on 89-00-7101OLE corrected for nucl RBC Auto (Bld) [#/Vol]8.0 10 3/uL4.0-11.0[facility] Auto (RBC) [Entitic mass]Ordered By: Theo Thakkar on 16-80-6570VAW (RBC) [Entitic mass]30.9 pg25.9-34.0[facility] CenterMC Auto (RBC) [Mass/Vol]Ordered By: Theo Thakkar on 98-21-8177NRJC (RBC) [Mass/Vol]32.8 g/dL29.9-35.2FSalem Regional Medical CenterMCV Auto (RBC) [Entitic vol]Ordered By: Theo Thakkar on 70-34-3812POP (RBC) [Entitic vol]94.0 fL80.0-94.0[facility] CenterNo Panel InformationOrdered By: Theo Thakkar on 48-43-8740Kjoua Bacteria SMALL #/HPFAbnormalNONE [facility] HospitalUrine Occult Blood TRACE-INEGATIVEMetrohealth Parma Medical CenterUrine Other CastsNONE SEEN #/LPF NONE [facility] HospitalUrine Other CrystalsNone Seen #/HPF None [facility] CenterUrine Random Mpayhlyxsz384.61 mg/dL 20.00-300.00[facility] CenterUrine RBC0-2 #/HPF0-[address] [place], [place] [address]Urine Squamous Epithelial CellsRARE #/LPFNONE/RARE [facility] CenterUrine DVU43-58 #/HPFAbnormalNONE [facility]25-Hydroxy Vitamin D Total43.3 ng/mLMetrohealth Parma Medical CenterComment on above:<20 ng/mL Vit D ifddqzhrq07-<30 ng/mL Vit D errzvsnqgwbr29-911 ng/mL Vit D sufficient>100 ng/mL Potential Toxicity Parathyroid Hormone (Intact)81 pg/hWSxrtuafu93-88AcerxfshzMetrohealth Parma Medical CenterComment on above:Performed at: - Lab[address] [id number] Director: Rojelio Nelson PhD, Phone: [phone] Phosphorus Level3.9 mg/dL2.6-4.7FSalem Regional Medical CenterPlatelet mean volume Auto (Bld) [Entitic vol]Ordered By: Theo Thakkar on 76-95-1389Ligesuwt mean volume (Bld) [Entitic vol]10.3 fL9.5-13.5FSalem Regional Medical Center Platelets Auto (Bld) [#/Vol]Ordered By: Theo Thakkar on 25-97-6106Wqnodmyeg (Bld) [#/Vol]271 10 3/nE166-669QolhvybfyMetrohealth Parma Medical CenterRBC Auto (Bld) [#/Vol]Ordered By: Theo Thakkar on 25-94-6956NPU (Bld) [#/Vol]4.18 10 6/uLLow 4.70-6.10Lima Memorial Hospitalerum or plasma anion gap determinationOrdered By: Theo Thakkar on 89-21-5933Mgvzw gap [Moles/Vol]14.6 mmol/LFSalem Regional Medical CenterUrine protein/creatinine ratioOrdered By: Theo Thakkar on 28-93-6200Yhfukca/Creatinine (U) [Ratio]0.69[facility] CenterCNOVon 06-26-1791BCTGExnafd Visit (MINDYA) YESENIA BROUSSARD ([id number]) 1945 M Date Time Provider Department 01/18/25 [...] DIAGNOSIS: Prostate adenocarcinoma, initial PSA 9.95, biopsy Union score 3 + 4 = 7 (grade [...] ASSESSMENT/PLAN: Prostate adenocarcinoma, initial PSA 9.95, biopsy Union score 3 + 4 = 7 (grade [...] by: Genoveva Nazario MD cc: Shaikh Dotty [address] [place] [address] Allergies As of Date: 01/18/2025 (No Known Allergies) Date Reviewed: 01/18/2025 Reviewed by: Kelly Hector MA - Fully Assessed Reason for Visit: Prostate Cancer [590] Cmt: Follow up Primary Visit Diagnosis:Cancer of prostate w/med recur risk (T2b-c or Union 7 or PSA 10-20) (HCC) [C61] Order(s):PROSTATE-SPECIFIC ANTIGEN DIAGNOSTIC [SQPSA] Order #: [id number] FUTURE Prescriptions as of 01/18/2025 - HYDROcodone-acetaminophen [...] Service: OFFICE/OUTPATIENT ESTABLISHED LOW MDM 20 MIN [53736] Additional E/M codes: VISIT CPLX INHERENT EANDM ASSOC WITH MED * (more content not included)...NormalK[facility] PSA SERPL-MCNC on 58-64-2781QID PSA SERPL-MCNC1.56 ng/mLNINF - 2.60 ng/mLNCOMMUNITY HOSPITAL – OKLAH[facility] CITY HealthcareComment on above:Total PSA test methodology used is the Electrochemiluminescence Immunoassay by [employer]. Total PSA values by differing methodologies cannot be interchanged.Specimen Type: BLOOD SPECIMEN Ordering Facility: [facility] Address: [address] [place] [address] Original Ordering Provider: Genoveva HUDSON [facility] HospitalA SerPl-mCncon 56-83-3282Ptkielca specific Ag [Mass/Vol]1.56 ng/mLNormal<2.60 [facility] HospitalCombeaumont hospital on above:Order Comment: Specimen Type: BLOOD SPECIMEN Ordering Facility: [facility] Address: [address] [place], [place] [address]Result Comment: Total PSA test methodology used is the Electrochemiluminescence Immunoassay by [employer]. Total PSA values by differing methodologies cannot be interchanged. Performed By: #### [id number] #### [facility] CLIA [id number] [address] [place], [place] [address] [address] [place] OF AMERICAUrine Cytology ( Labs)on 04-10-0836Nuqxmqjqhok exam Cytology (U) [Interp]Diagnosis InfoInvalid Interpretation CodeFrancescoJohns Hopkins Bayview Medical CenterComment on above:Result Comment: A:Urine,Urine:Voided Interpretation - Adequate cellularity for evaluation. CPT 00498 MicroScopic Description - Adequacy - Gross Description Site ID:A color Yellow fixative Alcohol Specimen designated Urine received in alcohol preservative and labeled with the patient???s name, consists of 70ml clear yellow fluid. Electronically signed by : on: 09/02/2024 13:57:41Performed By: #### [id number] #### [facility] [address] [place], [place] [address]Ambulatory Visit Summaryon 22-80-4431Opbzdpwzns Visit Summary Ambulatory Visit Summary YESENIA BROUSSARD :1945 Visit Date:08/29/2024 Ambulatory Visit Instructions Your Diagnosis Gross hematuria Your Care Team Attending Physician - CLAIRE JAMES PA-C Primary Care Physician - AMBROSIO SCALES CNP This Is Your Medications List acetaminophen-hydrocodone (Brewster 5/325 Tab) amlodipine (amLODIPine 10 mg Tab) [...] MAK, Barbara Warner Where: [facility] [address] You Need to Schedule the Following Appointments Follow Up with [facility] [place] When: Comments: For procedure as scheduled. Where: Medications What How Much When Instructions Unchanged acetaminophen-hydrocodone (Brewster 5/ 325 Tab) By Mouth Every 6 [...] these instructions at home: Medicines ??? Take mszt-ioa-xxuovrt and prescription medicines only as told by [...] straining your urine to (more content not included)...NormalTrihealth Bethesda North HospitalUrine Cytology ([facility])on 04-63-2211JG Method of ExtractionVoidedCoshocton Regional Medical CenterComment on above:Performed By: #### [id number] #### [facility] [address] [place], [place] [address]EN Number of Nppg1Pmvvkal Interpretation [facility] HospitalComment on above:Performed By: #### [id number] #### [facility] [address] [place], [place] [address]ZU SpecimenUrineNoFirelands Regional Medical CenterComment on above:Performed By: #### [id number] #### [facility] [address] [place], [place] [address]ZI Type of ServiceTechnical OnlyCoshocton Regional Medical CenterComment on above:Performed By: #### [id number] #### [facility] [address] [place], [place] [address]Mkfpugc Office/Clinic Noteon 17-62-1899Whkjwyo Office/Clinic NoteUrology Office/Clinic Note Chief Complaint gross [...] E&M of Est. Patient Moderate 30-39 Min 22156 Urine Cytology ([facility]) Urnls Dip Stick Auto w/o Microscopy POC 01914 Follow-up With When Contact Information [facility] [place] Additional Instructions: For procedure as scheduled. Patient [...] 1 tab(s) nitroglycerin 0.4 mg sublingual Tab Brewster 5/325 Tab, Oral, q6hr pravastatin 40 mg [...] (08/29/24 11:52:00) Blood U (more content not included)...[facility] Regional Medical CenterComment on above:Result Comment: Electronically Signed By: CLAIRE JAMES PA-C\Date and Time Signed: 08/29/2513:09 EDTC Urineon 31-71-2218Vxbwavya identified Cx Nom (U)Microbiology PROCEDURE: Urine Culture [R1] SOURCE: U CleanCatch BODY SITE: COLLECTED DATE/TIME: 08/22/2024 16:34 EDT RECEIVED DATE/TIME: 08/23/2024 17:54 EDT START DATE/TIME: 08/23/2024 17:54 EDT FREE TEXT SOURCE: Stewart MCMULLEN, NITESH-C, Stewart MCMULLEN, SERVICE CREW SUPERVISOR-C, Cherie X Cherie X FINAL REPORTS Final Report [] Verified Date/Time: 08/25/2024 07:02 EDT 100 cfu/ml Mixed skin contaminants Performing Locations R1: This test was performed at: [facility], [address] [place] [address], [address] [place] [address], QmicqzBztwzpFirelands Regional Medical CenterComment on above:Performed By: #### [id number] #### [facility] [address] [place], [place] [address]Ambulatory Visit Summaryon 88-05-3694Fxlwyhksmh Visit Summary Ambulatory Visit Summary YESENIA BROUSSARD :1945 Visit Date:08/22/2024 Ambulatory Visit Instructions Your Care Team Attending Physician - PRESTON MAK, Barbara Warner Primary Care Physician - AMBROSIO SCALES CNP This Is Your Medications List acetaminophen-hydrocodone (Brewster 5/325 Tab) amlodipine (amLODIPine 10 mg Tab) [...] MAK, Barbara Warner Where: [facility] [address] [facility] [place] [address]- Medications What How Much When Instructions Unchanged acetaminophen-hydrocodone (Brewster 5/ 325 Tab) By Mouth Every 6 [...] you for choosing us for your care. [facility] Medical CenterFollow-Upon 06-42-7900Ptycdf-Up [id number] Yesenia Broussard 1945 M Date Provider Department Center 08/18/2024 NICKOLAS STANTON [facility] SURG Second Fl Family History Problem Relation Age of Onset Hypertension Mother Diabetes Father Family Status - Relation Status Age at Mother Father Level of Service:[address] [place] OFFICE/OUTPATIENT ESTABLISHED LOW MDM 20 MIN Reason for Visit and Comments: Follow-up [364628][facility] Urineon 08-12-2024 Bacteria identified Cx [...] Locations R1: This test was performed at: [facility], [address] [place] [address], [phone] , [place], KbzktnEedkhbFirelands Regional Medical CenterComment on above:Performed By: #### [id number] #### [facility] [address] [place] [address]Slefede [Mass/volume] in Serum or Plasma by Bromocresol green (BCG) dye binding methoOrdered By: Theo Thakkar on 20-51-1418Ophrhxa BCG dye [Mass/Vol]Albumin [Mass/volume] in Serum or Plasma by Bromocresol green (BCG) dye binding metho3.5-5.7FSalem Regional Medical CenterAppearance of Urine Ordered By: Theo Thakkar on 48-48-3726Qxumswpfzl (U)Urine appearanceClear [facility] CenterBacteria [Presence] in Urine by Automated Ordered By: Theo Thakkar on 76-65-4161Wnxeuzwb Auto Ql (U)Bacteria [Presence] in Urine by AutomatedNone SeenMetrohealth Parma Medical CenterBilirubin Test strip Ql (U)Ordered By: Theo Thakkar on 41-82-0884Bqdnsprph Ql (U)Bilirubin.total [Presence] in Urine by Test stripNegativeMetrohealth Parma Medical Center Calcium [Mass/volume] in Serum or PlasmaOrdered By: Theo Thakkar on 08-10-2024 Calcium [Mass/Vol]Calcium [Mass/volume] in Serum or Plasma8.6-10.3FSalem Regional Medical CenterCarbon dioxide, total [Moles/volume] in Serum or Plasma Ordered By: Theo Thakkar on 50-20-8586FC3 [Moles/Vol]Carbon dioxide, total [Moles/volume] in Serum or Jgfved00.0-31.0[facility] Chloride [Moles/volume] in Serum or PlasmaOrdered By: Theo Thakkar on 08-10-2024 Chloride [Moles/Vol]Chloride [Moles/volume] in Serum or Puunnk70-862ScypdetirMetrohealth Parma Medical CenterColor Auto (U)Ordered By: Theo Vivian on 62-84-8597Ofpmx (U)Color of Urine by AutoYellowMetrohealth Parma Medical CenterCreatinine [Mass/volume] in Serum or PlasmaOrdered By: Theo Vivian on 33-41-7392Qbfiiluirj [Mass/Vol]Creatinine [Mass/volume] in Serum or PlasmaHigh0.70-1.30[facility] CenterCreatinine [Mass/volume] in UrineOrdered By: Theo Vivian on 06-29-0685Pdzjixjtnb (U) [Mass/Vol]Creatinine [Mass/volume] in UrineMetrohealth Parma Medical CenterComment on above:No reference range establishedDipstick and Microscopicon 88-20-6830Psjuacdgni (U)ClearNormalClearThe [facility] Physician GroupComment on above:Order Comment: Name Collection Type:: Clean- Voided MidstreamPerformed By: #### ADDONUAPLUS, PROCRERAT, CUU #### [facility] [address] [place] [address] USABacteria,UrineNone SeenNormalNone SeenThe [facility] Center Physician GroupComment on above:Order Comment: Name Collection Type:: Clean- Voided MidstreamPerformed By: #### ADDONUAPLUS, PROCRERAT, CUU #### [facility] [address] [place] [id number] USABilirubin,UrineNegativeNormalNegativeThe [facility] Physician GroupComment on above:Order Comment: Name Collection Type:: Clean- Voided MidstreamPerformed By: #### ADDONUAPLUS, PROCRERAT, CUU #### [facility] [address] [place] [address] USAColor (U)Light-YellowNormalYellowThe [facility] Center Physician GroupComment on above:Order Comment: Name Collection Type:: Clean-Voided MidstreamPerformed By: #### ADDONUAPLUS, PROCRERAT, CUU #### [place] [address] USAGlucose Ql (U)NormalNormalNormalThe [facility] Physician GroupComment on above:Order Comment: Name Collection Type:: Clean-Voided MidstreamPerformed By: #### ADDONUAPLUS, PROCRERAT, CUU #### [place] [address] USAHyaline Casts,Evdrk9-3Txqvtl6-8Jeq [facility] Physician GroupComment on above:Order Comment: Name Collection Type:: Clean-Voided MidstreamPerformed By: #### ADDONUAPLUS, PROCRERAT, CUU #### [place] [address] USAKetones Ql (U)NegativeNormalNegativeAdventhealth Orlando Physician GroupComment on above:Order Comment: Name Collection Type:: Clean- Voided MidstreamPerformed By: #### ADDONUAPLUS, PROCRERAT, CUU #### [place] [address] USALeukocyte esterase Test strip Ql (U)2+HighNegativeThe [facility] Physician GroupComment on above:Order Comment: Name Collection Type:: Clean-Voided MidstreamPerformed By: #### ADDONUAPLUS, PROCRERAT, CUU #### [place] [address] USAMucus,UrineRareNormalThe [facility] Physician GroupComment on above:Order Comment: Name Collection Type:: Clean-Voided MidstreamResult Comment: PERFORMED BY: [place] [address] PATHOLOGIST LOADING UNIT OPERATOR ROS GUNDERSON M.D.Performed By: #### ADDONUAPLUS, PROCRERAT, CUU #### [place] [address] USANitrite,UrineNegativeNormalNegativeThe [facility] Physician GroupComment on above:Order Comment: Name Collection Type:: Clean-Voided MidstreamPerformed By: #### ADDONUAPLUS, PROCRERAT, CUU #### [facility] [address] [place] [address] USAOccult Blood,Urine1+HighNegativeThe [facility] Physician GroupComment on above:Order Comment: Name Collection Type:: Clean-Voided MidstreamPerformed By: #### ADDONUAPLUS, PROCRERAT, CUU #### [place] [address] USApH (U)6.0 [pH]Normal5.0-9.0The [facility] Physician Group Comment on above:Order Comment: Name Collection Type:: Clean-Voided Midstream Performed By: #### ADDONUAPLUS, PROCRERAT, CUU #### [place] [address] USAProtein (U) [Mass/Vol]50 mg/dLHighNegativeThe [facility] Physician GroupComment on above:Order Comment: Name Collection Type:: Clean- Voided MidstreamPerformed By: #### ADDONUAPLUS, PROCRERAT, CUU #### [place] [address] USARBC,Gxmje9-8Tyxw4-3Umq [facility] Physician GroupComment on above:Order Comment: Name Collection Type:: Clean-Voided MidstreamPerformed By: #### ADDONUAPLUS, PROCRERAT, CUU #### [place] [address] USASpecificy [place],Urine1.457Lhqpww7.001-1.030The [facility] Physician GroupComment on above:Order Comment: Name Collection Type:: Clean- Voided MidstreamPerformed By: #### ADDONUAPLUS, PROCRERAT, CUU #### [place] [address] USAUrobilinogen,UrineNormalNormalNormalThe [facility] Physician GroupComment on above:Order Comment: Name Collection Type:: Clean- Voided MidstreamPerformed By: #### ADDONUAPLUS, PROCRERAT, CUU #### [place] [address] USAWBC CLUMP, UrineOccasionalHighNone SeenThe [facility] Physician GroupComment on above:Order Comment: Name Collection Type:: Clean- Voided MidstreamPerformed By: #### ADDONUAPLUS, PROCRERAT, CUU #### [facility] [address] [place] [address] USAWBC,Sqvjv35-32Qsav9-4Nqh [facility] Physician GroupComment on above:Order Comment: Name Collection Type:: Clean-Voided MidstreamPerformed By: #### ADDONUAPLUS, PROCRERAT, CUU #### [facility] [address] [place] [address] USAEpithelial cells.squamous [#/area] in Urine sediment by Automated countOrdered By: Theo Thakkar on 08-25-8857Qrbmkffepo cells.squamous Auto (Urine sed) [#/Area]Epithelial cells.squamous [#/area] in Urine sediment by Automated countMetrohealth Parma Medical CenterErythrocyte distribution width Auto (RBC) [Ratio]Ordered By: Theo Thakkar on 13-47-9718Susqkyjxalh distribution width (RBC) [Ratio]Erythrocyte distribution width [Ratio] by Automated countHigh 12.0-14.8[facility] Medical CenterErythrocytes [#/area] in Urine sediment by Automated countOrdered By: Theo Thakkar on 12-61-2337VVN Auto (Urine sed) [#/Area]Erythrocytes [#/area] in Urine sediment by Automated countHigh0-4 [facility] CenterFerritinon 21-23-1544Pybeveip [Mass/Vol]14.0 ng/mLLow23.9-336.2The [facility] Physician GroupComment on above:Performed By: #### MG, JZDD19SN, URIC, CBCNO, JAVIER, FE and TIBC, PTH, RENAL #### [facility] [address] [place] [address] USAFerritin [Mass/volume] in Serum or PlasmaOrdered By: Theo Thakkar on 29-89-6297Ggpcmvay [Mass/Vol]Ferritin [Mass/volume] in Serum or Plasma Low23.9-336.2FSalem Regional Medical CenterGlucose [Mass/volume] in Serum or PlasmaOrdered By: Theo Thakkar on 04-30-4897Xmvxupw [Mass/Vol]Glucose [Mass/volume] in Serum or KmxnkbHvou52-154HagcrrmrkMetrohealth [facility] Medical Center Comment on above:ADA recommended reference rangeRandom Glucose Reference Range is dependent on time and content of last meal. Glucose of more than 200 mg/dL in a nonstressed, ambulatory subject supports the diagnosisof Diabetes Mellitus. Glucose [Mass/volume] in Urine by Test stripOrdered By: Theo Thakkar on 29-33-0592Maaxuol Test strip (U) [Mass/Vol]Glucose [Mass/volume] in Urine by Test stripNormalMetrohealth Parma Medical CenterHematocrit Auto (Bld) [Volume fraction]Ordered By: Theo Thakkar on 84-72-8051Lqhetlbwoa (Bld) [Volume fraction] Hematocrit [Volume Fraction] of Blood by Automated count38.8-50.0[facility] Medical CenterHemoglobin Test strip Ql (U)Ordered By: Theo Thakkar on 24-95-4061Dmxbqfvhyx Ql (U)Hemoglobin [Presence] in Urine by Test stripHigh NegativeMetrohealth Parma Medical CenterHemoglobin [Mass/volume] in Blood Ordered By: Theo Thakkar on 74-62-4629Uhnfsyhptc (Bld) [Mass/Vol]Hemoglobin [Mass/volume] in Blood13.0-17.0[facility] Medical CenterHemogram CBC Without Diffon 78-39-1306Pupslrahgon distribution width (RBC) [Ratio]15.8 %High 12.0-14.8The [facility] Physician GroupComment on above:Performed By: #### MG, TQNI98NN, URIC, CBCNO, JAVIER, FE and TIBC, PTH, RENAL #### [facility] [address] [place] [id number] USAHematocrit (Bld) [Volume fraction]39.2 %Rbqazs87.8-50.0The [facility] Physician GroupComment on above:Performed By: #### MG, [id number], URIC, CBCNO, JAVIER, FE and TIBC, PTH, RENAL #### [facility] [address] [place] [id number] USAHemoglobin (Bld) [Mass/Vol]13.0 g/vDMgxxet73.0-17.0The [facility] Physician GroupComment on above:Performed By: #### MG, [id number], URIC, CBCNO, JAVIER, FE and TIBC, PTH, RENAL #### [facility] [address]MCH (RBC) [Entitic mass]29.9 inDdygfr59.5-35.2The [facility] Physician GroupComment on above:Performed By: #### MG, [id number], URIC, CBCNO, JAVIER, FE and TIBC, PTH, RENAL #### [address]V (RBC) [Entitic vol]90.3 jWPcsohr91.5-101The [facility] Physician GroupComment on above:Performed By: #### MG, [id number], URIC, CBCNO, JAVIER, FE and TIBC, PTH, RENAL #### [facility] [address] [place] [address] USAMean Corpuscular HGB Conc33.1 g/nEDyvjxb27.5-35.6The [facility] Physician GroupComment on above:Performed By: #### MG, [id number], URIC, CBCNO, JAVIER, FE and TIBC, PTH, RENAL #### [place] [address] USAPlatelet mean volume (Bld) [Entitic vol]8.9 fLNormal 6.6-10.1The [facility] Physician GroupComment on above:Result Comment: PERFORMED BY: [place] [address] PATHOLOGIST LOADING UNIT OPERATOR ROS GUNDERSON M.D.Performed By: #### MG, [id number], URIC, CBCNO, JAVIER, FE and TIBC, PTH, RENAL #### [place] [address] USAPlatelets (Bld) [#/Vol]293 10*3/uMGlvony830-448Mrc [facility] Physician GroupComment on above:Performed By: #### MG, [id number], URIC, CBCNO, JAVIER, FE and TIBC, PTH, RENAL #### [facility] [address] [place] [address] USARBC (Bld) [#/Vol]4.34 10*6/uLNormal3.90-5.60The [facility] Physician GroupComment on above:Performed By: #### MG, [id number], URIC, CBCNO, JAVIER, FE and TIBC, PTH, RENAL #### [facility] [address] [place] [address] USAWBC (Bld) [#/Vol]6.9 10*3/uLNormal4.1-10.5The [facility] Physician GroupComment on above:Performed By: #### MG, [id number], URIC, CBCNO, JAVIER, FE and TIBC, PTH, RENAL #### [place] [address] USAHyaline casts [#/area] in Urine sediment by Automated countOrdered By: Theo Thakkar on 12-28-4185Yobgwui casts Auto (Urine sed) [#/Area]Hyaline casts [#/area] in Urine sediment by Automated count0-8[facility] Medical CenterIron [Mass/volume] in Serum or PlasmaOrdered By: Theo Thakkar on 44-35-6685Epit [Mass/Vol]Iron [Mass/volume] in Serum or Gvsgjf17-949 [facility] CenterIron and TIBC Profileon 08-10-2024% Iron Dkytncerxq76.9 %Hvz63-13Rqm [facility] Physician GroupComment on above:Performed By: #### MG, [id number], URIC, CBCNO, JAVIER, FE and TIBC, PTH, RENAL #### [facility] [address] [place] [address] USAIron [Mass/Vol]87 ug/oGCrnbsa11-175Yvn [facility] Physician GroupComment on above:Performed By: #### MG, [id number], URIC, CBCNO, JAVIER, FE and TIBC, PTH, RENAL #### [facility] [address] [place] [address] USATotal Iron Binding Yspoqbll022 ug/xIOleshb983-175Wxp [place] Physician GroupComment on above:Performed By: #### MG, [id number], URIC, CBCNO, JAVIER, FE and TIBC, PTH, RENAL #### [facility] [address] [place] [id number] USATransferrin [Mass/Vol]313 mg/eMCrzmdw403-028Wug [facility] Physician GroupComment on above:Performed By: #### MG, [id number], URIC, CBCNO, JAVIER, FE and TIBC, PTH, RENAL #### [facility] [address] [place] [address] USAKetones Test strip Ql (U)Ordered By: Theo Thakkar on 88-48-5693Aornmyo Ql (U)Ketones [Presence] in Urine by Test stripNegCleveland Clinic Mercy HospitalLeukocyte clumps [Presence] in Urine by AutomatedOrdered By: Theo Thakkar on 16-60-2405Tqupzxwca clumps Auto Ql (U) Leukocyte clumps [Presence] in Urine by AutomatedSelect Medical Specialty Hospital - CantonLeukocyte esterase [Presence] in Urine by Test stripOrdered By: Theo Thakkar on 57-54-3516Oncubksed esterase Test strip Ql (U)Leukocyte esterase [Presence] in Urine by Test stripUniversity Hospitals Health System Leukocytes [#/area] in Urine sediment by Automated countOrdered By: Theo Thakkar on 63-93-4351UDS Auto (Urine sed) [#/Area]Leukocytes [#/area] in Urine sediment by Automated countHigh04FSalem Regional Medical CenterLeukocytes [#/volume] corrected for nucleated erythrocytes in Blood by Automated counOrdered By: Theo Thakkar on 17-52-6084VED corrected for nucl RBC Auto (Bld) [#/Vol]Leukocytes [#/volume] corrected for nucleated erythrocytes in Blood by Automated coun 4.1-10.5FKettering HealthH Auto (RBC) [Entitic mass]Ordered By: Theo Thakkar on 95-64-3998QNO (RBC) [Entitic mass]MCH [Entitic mass] by Automated count27.5-35.2FKettering HealthHC Auto (RBC) [Mass/Vol]Ordered By: Theo Thakkar on 45-97-1403PBJT (RBC) [Mass/Vol]MCHC [Mass/volume] by Automated count32.5-35.6FSalem Regional Medical CenterMCV Auto (RBC) [Entitic vol]Ordered By: Theo Thakkar on 19-60-2769CTS (RBC) [Entitic vol]MCV [Entitic volume] by Automated count83.5-101[facility] Medical CenterMagnesiumon 61-50-6923Dndfczvic [Mass/Vol]2.1 mg/dLNormal1.9-2.7The [facility] Physician GroupComment on above:Performed By: #### MG, [id number], URIC, CBCNO, JAVIER, FE and TIBC, PTH, RENAL #### [facility] [address] [place] [address] USAMagnesium [Mass/volume] in Serum or PlasmaOrdered By: Theo Thakkar on 88-25-6099Vlkpgtnpo [Mass/Vol]Magnesium [Mass/volume] in Serum or Plasma1.9-2.7FSalem Regional Medical CenterMucus [Presence] in Urine by AutomatedOrdered By: Theo Thakkar on 87-87-7389Jhwjo Auto Ql (U)Mucus [Presence] in Urine by AutomatedMetrohealth Parma Medical CenterNitrite Test strip Ql (U) Ordered By: Theo Thakkar on 33-05-3497Vbjfzfi Ql (U)Nitrite [Presence] in Urine by Test stripNegativeMetrohealth Parma Medical CenterNo Panel Information Ordered By: Theo Thakkar on 58-44-7360Koozoafbs GFR (CKD-EPI)39.659 mL/Min [facility] CenterPharmacy Creatinine Clearance (ChemN/[facility]red Hospital DaytonParathyrin.intact [Mass/volume] in Serum or Plasma Ordered By: Theo Thakkar on 45-62-7989Uegxquykxz.intact [Mass/Vol] Parathyrin.intact [Mass/volume] in Serum or BphzpyYgmw12-18PvqgcjckkMetrohealth Parma Medical CenterParathyroid Hormone Intacton 77-81-6208Oibnybkjwvr Hormone Intact 96.1 pg/zOWyhr09-54Sjf [place] Physician GroupComment on above:Result Comment: PERFORMED BY: [place] [address] PATHOLOGIST LOADING UNIT OPERATOR ROS GUNDERSON M.D.Performed By: #### MG, [id number], URIC, CBCNO, JAVIER, FE and TIBC, PTH, RENAL #### [facility] [address] [place] [address] USAPhosphate [Mass/volume] in Serum or PlasmaOrdered By: Theo Vivian on 35-22-1925Kulrrkwtg [Mass/Vol]Phosphate [Mass/volume] in Serum or Plasma2.5-4.5FSalem Regional Medical CenterPlatelet mean volume Auto (Bld) [Entitic vol]Ordered By: Theo Vivian on 32-91-1684Feldubos mean volume (Bld) [Entitic vol]Platelet mean volume [Entitic volume] in Blood by Automated count 6.6-10.1FSalem Regional Medical CenterPlatelets Auto (Bld) [#/Vol]Ordered By: Theo Vivian on 12-40-8727Uybbfmako (Bld) [#/Vol]Platelets [#/volume] in Blood by Automated hatlt757-178SygbsvuqiMetrohealth Parma Medical CenterPotassium [Moles/volume] in Serum or PlasmaOrdered By: Theo Vivian on 62-70-7523Omzhbsfhj [Moles/Vol]Potassium [Moles/volume] in Serum or Plasma3.5-5.1FSalem Regional Medical CenterProtein Creat Ratio Ur Randomon 03-44-9225Rndaengzfb, Urine (Random)114.00 mg/dLNormalThe [facility] Physician GroupComment on above:Result Comment: No reference range establishedPerformed By: #### EM CHO CUU #### [place] [address] USAProtein (U) [Mass/Vol]81 mg/dLHigh0-9[facility] Physician GroupComment on above:Performed By: #### EM CHO, CUU #### [address] [place] [address] USAUrine Protein/Creatinine Plmlz456 mg/g{Cre}High0-200The [facility] Physician GroupComment on above:Result Comment: PERFORMED BY: [place] [address] PATHOLOGIST LOADING UNIT OPERATOR ROS GUNDERSON M.D.Performed By: #### BELEM CHORELESLI WEAVER #### [place] [address] USAProtein Test strip (U) [Mass/Vol]Ordered By: Theo Herrmanndir on 55-00-8761Vkrgduc (U) [Mass/Vol]Protein [Mass/volume] in Urine by Test strip HighNegativeMetrohealth Parma Medical CenterProtein [Mass/volume] in Urine Ordered By: Theo Herrmanndir on 37-59-8335Xvmilfy (U) [Mass/Vol]Protein [Mass/volume] in UrineHigh0-9[facility] Medical CenterRBC Auto (Bld) [#/Vol]Ordered By: Theo Vivian on 97-58-7007BWR (Bld) [#/Vol]Erythrocytes [#/volume] in Blood by Automated count3.90-5.60[facility] Medical CenterRenal Function Panel on 28-09-5561Lvcjggz [Mass/Vol]4.3 g/dLNormal3.5-5.7The [facility] Physician GroupComment on above:Performed By: #### MG, [id number], URIC, CBCNO, JAVIER, FE and TIBC, PTH, RENAL #### [place] [id number] USAAnion gap [Moles/Vol]9.2 mmol/LNormal6.0-15.0The [facility] Physician GroupComment on above:Performed By: #### MG, [id number], URIC, CBCNO, JAVIER, FE and TIBC, PTH, RENAL #### [place] [address] USACalcium [Mass/Vol]9.2 mg/dLNormal8.6-10.3The [facility] Physician GroupComment on above:Performed By: #### MG, [id number], URIC, CBCNO, JAVIER, FE and TIBC, PTH, RENAL #### [facility] [address] [place] [address] USAChloride [Moles/Vol]106 mmol/RGsonaa26-252Wej [facility] Physician GroupComment on above:Performed By: #### MG, [id number], URIC, CBCNO, JAVIER, FE and TIBC, PTH, RENAL #### [facility] [address] [place] [address] USACO2 [Moles/Vol]27.7 mmol/GDkpvfb67.0-31.0The [facility] Physician GroupComment on above:Performed By: #### MG, [id number], URIC, CBCNO, JAVIER, FE and TIBC, PTH, RENAL #### [place] [address] USACreatinine [Mass/Vol]1.73 mg/dLHigh0.70-1.30The [facility] Physician GroupComment on above:Performed By: #### MG, [id number], URIC, CBCNO, JAVIER, FE and TIBC, PTH, RENAL #### [place] [address] USAEstimated GFR39.659 mL/MinNormalThe [facility] Physician [facility] HospitalComment on above:Performed By: #### MG, [id number], URIC, CBCNO, JAVIER, FE and TIBC, PTH, RENAL #### [place] [address] USAGlucose [Mass/Vol]119 mg/cJXldp19-653Wjt [facility] Physician [facility] Regional HospitalComment on above:Result Comment: Random Glucose Reference Range is dependent on time and content of last meal. Glucose of more than 200 mg/dL in a nonstressed, ambulatory subject supports the diagnosis of Diabetes Mellitus. ADA recommended reference rangePerformed By: #### MG, [id number], URIC, CBCNO, JAVIER, FE and TIBC, PTH, RENAL #### [place] [address] USAPhosphate [Mass/Vol]3.4 mg/dLNormal2.5-4.5The [facility] Physician GroupComment on above:Performed By: #### MG, [id number], URIC, CBCNO, JAVIER, FE and TIBC, PTH, RENAL #### [facility] [address] [place] [address] USAPotassium [Moles/Vol]4.9 mmol/LNormal3.5-5.1The [facility] Physician GroupComment on above:Performed By: #### MG, [id number], URIC, CBCNO, JAVIER, FE and TIBC, PTH, RENAL #### [facility] [address] [place] [address] USASodium [Moles/Vol]138 mmol/ZDpxlgc947-532Xrt [facility] Physician GroupComment on above:Performed By: #### MG, [id number], URIC, CBCNO, JAVIER, FE and TIBC, PTH, RENAL #### [facility] [address] [place] [address] USAUrea nitrogen [Mass/Vol]24 mg/dLNormal7-25The [facility] Physician GroupComment on above:Performed By: #### MG, [id number], URIC, CBCNO, JAVIER, FE and TIBC, PTH, RENAL #### [facility] [address] [place] [address] USASerum or plasma anion gap determinationOrdered By: Theo Thakkar on 73-02-5843Wimys gap [Moles/Vol]Serum or plasma anion gap determination 6.0-15.0L[facility] Memorial Hospitalerum or plasma iron binding capacity measurement (mass/volume)Ordered By: Theo Thakkar on 35-15-3449Lnfb binding capacity [Mass/Vol]Iron binding capacity [Mass/volume] in Serum or Alffds908-208 [facility] Hospitalerum or plasma iron saturation measurement (mass fraction)Ordered By: Theo Thakkar on 47-18-5041Knic saturation [Mass fraction]Iron saturation [Mass Fraction] in Serum or LmomtqGbm05-74UecuevduvLima Memorial Hospitalodium [Moles/volume] in Serum or PlasmaOrdered By: Theo Thakkar on 08-80-6952Egavil [Moles/Vol]Sodium [Moles/volume] in Serum or Plasma 136-145L[facility] Memorial Hospitalpecific gravity Test strip (U) [Rel density]Ordered By: Theo Thakkar on 24-78-2192Qluwvogb gravity (U) [Rel density] Specific gravity of Urine by Test strip1.001-1.030[facility] Medical CenterTransferrin [Mass/volume] in Serum or PlasmaOrdered By: Theo Thakkar on 90-53-9472Qlnlsihlsxn [Mass/Vol]Transferrin [Mass/volume] in Serum or Plasma 203-362Met[facility] Medical CenterUrate [Mass/volume] in Serum or Plasma Ordered By: Theo Herrmanndir on 35-83-3948Uxetg [Mass/Vol]Urate [Mass/volume] in Serum or Plasma4.4-7.6FSalem Regional Medical CenterUrea nitrogen [Mass/volume] in Serum or PlasmaOrdered By: Theo Joycer on 09-52-7550Vyya nitrogen [Mass/Vol]Urea nitrogen [Mass/volume] in Serum or Plasma7-25[facility] Medical CenterUric Acidon 65-29-3001Xputu [Mass/Vol]6.2 mg/dLNormal 4.4-7.6The [facility] Physician GroupComment on above:Performed By: #### MG, [id number], URIC, CBCNO, JAVIER, FE and TIBC, PTH, RENAL #### [facility] [address] [place] [address] USAUrine Cultureon 12-41-2134Wtpngolr identified Cx Nom (U)No Growth 2 Days PERFORMED BY: [place] [address] PATHOLOGIST LOADING UNIT OPERATOR ROS GUNDERSON M.D.NormalThe [facility] Physician GroupComment on above: Performed By: #### MG, [id number], URIC, CBCNO, JAVIER, FE and TIBC, PTH, RENAL #### [facility] [address] [place], [place] [address]Urine cultureOrdered By: Theo Thakkar on 14-12-5445Pneprovy identified Cx Nom (U)Urine cultureMetrohealth Parma Medical CenterUrine protein/creatinine ratioOrdered By: Theo Thakkar on 87-37-1919Afwnouu/Creatinine (U) [Ratio]Urine protein/creatinine ratioHigh0-200[facility] Medical CenterUrobilinogen Test strip (U) [Mass/Vol]Ordered By: Theo Thakkar on 76-19-5499Ncxabtfsqtrz (U) [Mass/Vol]Urobilinogen [Mass/volume] in Urine by Test stripNormalMetrohealth Parma Medical CenterVitamin D 25 Hydroxy Totalon 75-33-0537Dpmafuu D 25 Hydroxy Total51.2 ng/xDYacjjh12-875Pfo [facility] Physician GroupComment on above:Result Comment: VITAMIN D STATUS 25(OH)VITAMIN D RANGE (ng/mL) Deficient <20 Insufficient 20 to <30 Sufficient 30 to 100 Reference: Wayne Patterson, John VILLEGAS, et al. Evaluation,treatment, and prevention of vitamin D deficiency; an Endocrine Society clinical practice guideline. JCEM. 2010; 96(7):1911-. PERFORMED BY: [place] [address] PATHOLOGIST LOADING UNIT OPERATOR ROS GUNDERSON M.D.Performed By: #### MG, [id number], URIC, CBCNO, JAVIER, FE and TIBC, PTH, RENAL #### [address] Wise StreetVitamin D+Metabolites [Mass/volume] in Serum or Plasma Ordered By: Theo Thakkar on 91-28-4704Hmavavg D+Metabolites [Mass/Vol]Vitamin D+Metabolites [Mass/volume] in Serum or Qytlsa06-204NanbkvrrmMetrohealth Parma Medical CenterComment on above:VITAMIN D STATUS 25(OH)VITAMIN D RANGE (ng/mL) Deficient <20 Insufficient 20 to <62Bthqvpwnav98 to 100Reference: Wayne Patterson, John VILLEGAS, et al. Evaluation,treatment, and prevention of vitamin D deficiency; an Endocrine Society clinical practice guideline. JCEM. 2010; 96 (7):1911-30.pH Test strip (U)Ordered By: Theo Thakkar on 46-02-0200gK (U)pH of Urine by Test strip5.0-9.0[facility] Medical CenterUrology Office/Clinic Noteon 09-16-0045Linoexd Office/Clinic NoteUrology Office/Clinic Note Chief Complaint gross [...] day(s), # 14 cap(s), Refills(s) 0, Pharmacy: [facility]/pharmacy #[id number], 178, cm, 08/08/24 12:38:00 EDT, Height/Length Dosing, 90.4, kg, 08/08/24 12:38:00 EDT,Weight Dosing 55465 Measure Post Void residual urine and/or bladder capacity by US- non-imaging Body Mass Index (BMI) documented 3008F Current tobacco smoker 1034F Depression Screening Negative 3352F E&M of Est. Patient Moderate 30-39 Min 76962 Influenza immunization status assessed 1030F Medication list [...] Urnls Dip Stick Auto w/o Microscopy POC 03249 Orders: tadalafil, 20 mg = 1 tab(s), Oral, As Directed, Do not exceed 20mg within 48 hours., # 30 tab(s), Refills(s) 1, Pharmacy: [facility] #[id number], 178, cm, 07/07/23 9:25:00 EST, Height/Length Dosing, 92, kg, 07/07/23 9:25:00 EST, Weight Dosing Follow-up With When Contact Information [facility] Additional Instructions: Only if needed/new problems [...] Oral, q12hr nitroglycerin 0.4 mg sublingual Tab Brewster 5/325 Tab, Oral, q6hr pravastatin 40 mg [...] Cigarettes, Yes, 08/08/2024 F (more content not included)...[facility] CenterComment on above:Result Comment: Electronically Signed [...] prescribing physician if questions or concerns acetaminophen-hydrocodone (Brewster 5/325 Tab) amlodipine (amLODIPine 10 mg Tab) [...] Barbara JOHNSTON MD Where: [facility] [address] [place], [place] [id number]- You Need to Schedule the Following Appointments Follow Up with Barbara JOHNSTON MD, URL When: Comments: 1 yr w/ PSA Where: [facility] [address], [place] [address] [phone] Medications What How Much When Instructions Unchanged tadalafil (Cialis 20 mg Tab) 1 Tablets By Mouth As Directed Do not exceed 20mg within 48 hours. Unchanged acetaminophen-hydrocodone (Brewster 5/ 325 Tab) By Mouth Every 6 [...] medicines. ??? You villegas (more content not included)...[facility] CenterUrology Office/Clinic Noteon 51-40-1603Qzzuuju Office/Clinic NoteUrology Office/Clinic Note Chief Complaint hx [...] URL [facility] [address], [place] [phone] Additional Instructions: 1 yr w/ PSA Patient [...] (urinary tract infection) UTI (more content not included)...[facility] Medical CenterComment on above:Result Comment: Electronically Signed By: Barbara JOHNSTON MD\.br\Date and Time Signed: 04/18/24 12:11 EST\.br\Electronically Co-Signed By: Rosraio Byrne.br\Date and Time Co-Signed: 04/18/24 12:10 ESTC Urineon 43-01-4836Hcqxbzmc identified Cx Nom (U)Microbiology PROCEDURE: Urine Culture [...] Locations R1: This test was performed at: [facility], [address] [place] [address], [phone]- , , GmtwnmUyxasgCoshocton Regional Medical CenterComment on above:Performed By: #### [id number] #### [facility] [address] [place] [address]Speyefy [Mass/volume] in Serum or Plasma by Bromocresol green (BCG) dye binding methoOrdered By: Theo Thakkar on 65-90-8639Ruhmbtv BCG dye [Mass/Vol]4.2 g/dL3.5-5.7FSalem Regional Medical CenterBacteria [Presence] in Urine by AutomatedOrdered By: Theo Thakkar on 79-84-0002Thbxjdwz Auto Ql (U)None seen [HPF]None SeenMetrohealth Parma Medical CenterBilirubin Test strip Ql (U) Ordered By: Theo Thakkar on 89-23-0450Nhrofctwc Ql (U)NegativeNegativeMetrohealth Parma Medical CenterCalcium [Mass/volume] in Serum or PlasmaOrdered By: Theo Thakkar on 32-84-8413Pwacxio [Mass/Vol]9.4 mg/dL8.6-10.3FSalem Regional Medical CenterCarbon dioxide, total [Moles/volume] in Serum or PlasmaOrdered By: Theo Thakkar on 13-35-0619PM9 [Moles/Vol]24.9 mmol/L21.0-31.0[facility] Medical CenterChloride [Moles/volume] in Serum or PlasmaOrdered By: Theo Thakkar on 90-39-8987Vdmeslxk [Moles/Vol]105 mmol/I07-620GknptovhjMetrohealth Parma Medical CenterColor Auto (U)Ordered By: Theo Thakkar on 34-68-6743Pxohk (U)YellowYellow [facility] CenterCreatinine [Mass/volume] in Serum or Plasma Ordered By: Theo Thakkar on 17-97-5528Yxwnsinbpn [Mass/Vol]1.67 mg/dLHigh 0.70-1.30[facility] Medical CenterCreatinine [Mass/volume] in Urine Ordered By: Theo Thakkar on 73-35-0957Xcowttooot (U) [Mass/Vol]173.00 mg/dL [facility] CenterComment on above:No reference range established Epithelial cells.squamous [#/area] in Urine sediment by Automated countOrdered By: Theo Thakkar on 77-20-3622Qfrdmwuaom cells.squamous Auto (Urine sed) [#/Area] 1-2 [HPF]0-2FSalem Regional Medical CenterErythrocyte distribution width Auto (RBC) [Ratio]Ordered By: Theo Thakkar on 51-34-3208Vfrplxmtphx distribution width (RBC) [Ratio]15.0 %High12.0-14.8[facility] Erythrocytes [#/area] in Urine sediment by Automated countOrdered By: Theo Thakkar on 86-84-3470CJA Auto (Urine sed) [#/Area]10-19 [HPF]High04FSalem Regional Medical CenterGlucose [Mass/volume] in Serum or PlasmaOrdered By: Theo Thakkar on 62-62-5878Mpkrbyv [Mass/Vol]95 mg/kI29-157ZiywsnczpMetrohealth Parma Medical CenterComment on above:ADA recommended reference rangeRandom Glucose Reference Range is dependent on time and content of last meal. Glucose of more than 200 mg/dL in a nonstressed, ambulatory subject supports the diagnosisof Diabetes Mellitus.Glucose [Mass/volume] in Urine by Test stripOrdered By: Theo Thakkar on 47-76-1796Opafrse Test strip (U) [Mass/Vol]Normal mg/dLNormalMetrohealth Parma Medical CenterGranular casts [#/area] in Urine by Computer assisted method Ordered By: Theo Thakkar on 92-35-6156Apvmrymx casts Computer assisted (U) [#/Area]5-9 [LPF]HighNone SeenMetrohealth Parma Medical CenterHematocrit Auto (Bld) [Volume fraction]Ordered By: Theo Thakkar on 84-98-5668Qgdsrfgwxy (Bld) [Volume fraction]34.7 %Low38.8-50.0[facility] Medical CenterHemoglobin Test strip Ql (U)Ordered By: Theo Thakkar on 88-08-3249Srnivmpova Ql (U)1+High NegativeMetrohealth Parma Medical CenterHemoglobin [Mass/volume] in Blood Ordered By: Theo Thakkar on 95-77-3481Grfsiinafd (Bld) [Mass/Vol]11.4 g/dLLow 13.0-17.0[facility] Medical CenterHyaline casts [#/area] in Urine sediment by Automated countOrdered By: Theo Thakkar on 59-46-7190Dkyqhkz casts Auto (Urine sed) [#/Area]20-49 [LPF]High0-8[facility] Ketones Test strip Ql (U)Ordered By: Theo Thakkar on 10-36-9486Yrvxoxq Ql (U) NegativeNegOhioHealth Arthur G.H. Bing, MD, Cancer CenterLeukocyte clumps [Presence] in Urine by AutomatedOrdered By: Theo Thakkar on 54-84-0274Gcjwmdvvu clumps Auto Ql (U)Many [LPF]HighNone SeenMetrohealth Parma Medical CenterLeukocyte esterase [Presence] in Urine by Test stripOrdered By: Theo Thakkar on 19-39-4783Fbwtndhas esterase Test strip Ql (U)4+HighNegOhioHealth Arthur G.H. Bing, MD, Cancer Center Leukocytes [#/area] in Urine sediment by Automated countOrdered By: Theo Thakkar on 48-09-4229DZQ Auto (Urine sed) [#/Area]Innumerable [HPF]High0-4FSalem Regional Medical CenterLeukocytes [#/volume] corrected for nucleated erythrocytes in Blood by Automated counOrdered By: Theo Thakkar on 85-28-6538DID corrected for nucl RBC Auto (Bld) [#/Vol]6.9 10*3/uL4.1-10.5FKettering HealthH Auto (RBC) [Entitic mass]Ordered By: Theo Thakkar on 02-25-2024 MCH (RBC) [Entitic mass]28.4 pg27.5-35.2FSalem Regional Medical CenterMCHC Auto (RBC) [Mass/Vol]Ordered By: Theo Thakkar on 42-62-0230IZQY (RBC) [Mass/Vol] 32.9 g/dL32.5-35.6FSalem Regional Medical CenterMCV Auto (RBC) [Entitic vol] Ordered By: Theo Thakkar on 83-11-7351HNR (RBC) [Entitic vol]86.3 fL83.5-101 [facility] CenterMagnesium [Mass/volume] in Serum or Plasma Ordered By: Theo Thakkar on 30-13-5317Tpcvufmmc [Mass/Vol]2.2 mg/dL1.9-2.7 [facility] CenterMucus [Presence] in Urine by AutomatedOrdered By: Theo Thakkar on 32-50-5978Utnaj Auto Ql (U)Rare [LPF][facility] Medical CenterNitrite Test strip Ql (U)Ordered By: Theo Thakkar on 02-25-2024 Nitrite Ql (U)NegativeNegativeMetrohealth Parma Medical CenterNo Panel InformationOrdered By: Theo Thakkar on 77-42-0117Ggsckglhg GFR (CKD-EPI)41.634 mL/MinMetrohealth Parma Medical CenterPharmacy Creatinine Clearance (ChemN/A [facility] Medical CenterParathyrin.intact [Mass/volume] in Serum or PlasmaOrdered By: Theo Thakkar on 28-50-6953Mnpbeoxkba.intact [Mass/Vol]97.8 pg/hSKglu22-69MouwsehceMetrohealth Parma Medical CenterPhosphate [Mass/volume] in Serum or PlasmaOrdered By: Theo Thakkar on 62-54-1732Tlwzryypg [Mass/Vol]3.6 mg/dL 2.5-4.5FSalem Regional Medical CenterPlatelet mean volume Auto (Bld) [Entitic vol]Ordered By: Theo Thakkar on 73-60-7874Srxzmxfc mean volume (Bld) [Entitic vol]8.9 fL6.6-10.1FSalem Regional Medical CenterPlatelets Auto (Bld) [#/Vol] Ordered By: Theo Thakkar on 97-92-6249Qkekvkaga (Bld) [#/Vol]305 10*3/wS854-813 [facility] CenterPotassium [Moles/volume] in Serum or Plasma Ordered By: Theo Thakkar on 31-24-4942Weommdqen [Moles/Vol]4.8 mmol/L3.5-5.1 [facility] CenterProtein Test strip (U) [Mass/Vol]Ordered By: Theo Thakkar on 40-41-6433Pyymivw (U) [Mass/Vol]100 mg/dLHighNegOhioHealth Arthur G.H. Bing, MD, Cancer CenterProtein [Mass/volume] in UrineOrdered By: Teho Thakkar on 51-76-3681Dfxsbkb (U) [Mass/Vol]136 mg/dLHigh0-9[facility] CenterRBC Auto (Bld) [#/Vol]Ordered By: Theo Thakkar on 69-96-2755XCU (Bld) [#/Vol]4.02 10*6/uL3.90-5.60[facility] Hospitalerum or plasma anion gap determinationOrdered By: Theo Thakkar on 31-86-4871Kpcoy gap [Moles/Vol]11.9 mmol/L6.0-15.0[facility] Hospitalodium [Moles/volume] in Serum or PlasmaOrdered By: Theo Thakkar on 40-56-7502Afzyiu [Moles/Vol]137 mmol/V043-317FtmsnsaoeLima Memorial Hospitalpecific gravity Test strip (U) [Rel density]Ordered By: Theo Thakkar on 83-89-6666Aetuvemn gravity (U) [Rel density]1.0181.001-1.030[facility] CenterUrate [Mass/volume] in Serum or PlasmaOrdered By: Theo Thakkar on 90-13-3271Ogflo [Mass/Vol]5.7 mg/dL4.4-7.6FSalem Regional Medical CenterUrea nitrogen [Mass/volume] in Serum or PlasmaOrdered By: Theo Thakkar on 95-13-9093Cjsf nitrogen [Mass/Vol]23 mg/dL7-25[facility] CenterUrine appearance Ordered By: Theo Thakkar on 72-43-2469Ewwdriqucm (U)CloudyAbnormalClearFSalem Regional Medical CenterUrine culture routineOrdered By: Theo Thakkar on 53-05-0037Hmhgntdz identified Cx Nom (U)Staphylococcus aureusAbChildren's Hospital for RehabilitationUrine protein/creatinine ratioOrdered By: Theo Thakkar on 70-59-7861Nlqcexg/Creatinine (U) [Ratio]786 mg/g{Cre}High0-200[facility] CenterUrobilinogen Test strip (U) [Mass/Vol]Ordered By: Theo Thakkar on 11-57-7781Suepxdobsvcx (U) [Mass/Vol]Normal mg/dLNoCleveland Clinic Medina HospitalVitamin D+Metabolites [Mass/volume] in Serum or PlasmaOrdered By: Theo Thakkar on 92-15-3911Lwzdixp D+Metabolites [Mass/Vol]60.3 ng/cU19-729 [facility] CenterComment on above:VITAMIN D STATUS 25(OH)VITAMIN D RANGE (ng/mL) Deficient <20 Insufficient 20 to <72Ljuitvjbuv82 to 100Reference: Grecia MF,Wayne NC, John VILLEGAS, et al. Evaluation,treatment, and prevention of vitamin D deficiency; an Endocrine Society clinical practice guideline. JCEM. 2010; 96(7):1911-30.pH Test strip (U)Ordered By: Theo Thakkar on 69-89-7170kZ (U)6.0 [pH]5.0-9.0[facility] CenterLab Reportson 81-99-1417Jql Reports [id number]#1.00TIFMartins Ferry HospitalAlanine aminotransferase [Enzymatic activity/volume] in Serum or Plasma Ordered By: Shaikh Dotty on 84-74-2016BVG [Catalytic activity/Vol]13 U/L7-52 [facility] CenterAlbumin [Mass/volume] in Serum or Plasma by Bromocresol green (BCG) dye binding methoOrdered By: Shaikh Dotty on 10-01-2023 Albumin BCG dye [Mass/Vol]4.2 g/dL3.5-5.7FSalem Regional Medical Center Alkaline phosphatase [Enzymatic activity/volume] in Serum or PlasmaOrdered By: Shaikh Dotty on 74-60-2690IDP [Catalytic activity/Vol]58 U/S78-698RlgfhlfjuMetrohealth Parma Medical CenterAspartate aminotransferase [Enzymatic activity/volume] in Serum or PlasmaOrdered By: Shaikh Dotty on 60-42-5864YXT [Catalytic activity/Vol]13 U/K44-05EtqdsxqjxMetrohealth Parma Medical CenterBasophils Auto (Bld) [#/Vol]Ordered By: Shaikh Dotty on 49-79-4773Sdrdpramh (Bld) [#/Vol]0.0 10*3/uL 0.0-0.2FSalem Regional Medical CenterBasophils/100 WBC Auto (Bld)Ordered By: Shaikh Dotty on 85-45-9763Jmvzsllis/100 WBC (Bld)0.4 %.[facility] CenterBilirubin.total [Mass/volume] in Serum or PlasmaOrdered By: Shaikh Dotty on 64-14-9371Ydunhmxdz [Mass/Vol]0.3 mg/dL0.3-1.0[facility] CenterCalcium [Mass/volume] in Serum or PlasmaOrdered By: Shaikh Dotty on 11-41-1907Plnmncq [Mass/Vol]9.4 mg/dL8.6-10.3FSalem Regional Medical CenterCarbon dioxide, total [Moles/volume] in Serum or PlasmaOrdered By: Shaikh Dotty on 67-43-5221EU9 [Moles/Vol]27.0 mmol/L21.0-31.0[facility] CenterChloride [Moles/volume] in Serum or PlasmaOrdered By: Shaikh Dotty on 00-41-2334Cswjmdjr [Moles/Vol]108 mmol/D79-425HibuappqaMetrohealth Parma Medical CenterCholesterol [Mass/volume] in Serum or PlasmaOrdered By: Shaikh Dotty on 89-11-0712Aixktabwvww [Mass/Vol]135 mg/nN532-012YpdqufficMetrohealth Parma Medical CenterComment on above:Chol less than 200 mg/dl low riskChol 201-239 mg/dl borderline riskChol 240 mg/dl and greater high riskCholesterol in LDL Calc [Mass/Vol]Ordered By: Shaikh Dotty on 21-05-2111Psnepqcbjyy in LDL [Mass/Vol] 81 mg/dL0-100[facility] CenterComment on above:LDL ATP III CLASSIFICATIONLDL less than 100 mg/dL OptimalLDL 100-129 mg/dL Near or above vytsmgkKZU947-329 mg/dL Borderline highLDL 160-189 mg/dL HighLDL greater than 189 mg/dL Very highCholesterol in VLDL Calc [Mass/Vol]Ordered By: Shaikh Dotty on 22-35-6509Dnmijlkkivn in VLDL [Mass/Vol]16 mg/dLMetrohealth Parma Medical CenterCreatinine [Mass/volume] in Serum or PlasmaOrdered By: Shaikh Dotty on 46-45-9529Owzetxyiyd [Mass/Vol]1.89 mg/dL0.70-1.30[facility] CenterCreatinine [Mass/volume] in UrineOrdered By: Shaikh Dotty on 10-01-2023 Creatinine (U) [Mass/Vol]164.0 mg/dLMetrohealth Parma Medical CenterComment on above:No reference range establishedEosinophils Auto (Bld) [#/Vol]Ordered By: Shaikh Dotty on 95-10-4948Vmkkqsbanvw (Bld) [#/Vol]0.2 10*3/uL0.0-0.45[facility] CenterEosinophils/100 WBC Auto (Bld)Ordered By: Shaikh Dotty on 07-85-9260Jevrosnfoji/100 WBC (Bld)2.7 %.[facility] Erythrocyte distribution width Auto (RBC) [Ratio]Ordered By: Shaikh Dotty on 82-98-9707Kbtkemgciuw distribution width (RBC) [Ratio]14.9 %12.0-14.8[facility] CenterGlobulin Calc (S) [Mass/Vol]Ordered By: Shaikh Dotty on 89-79-6054Fgnrjthf (S) [Mass/Vol]2.5 g/dLMetrohealth Parma Medical Center Glucose [Mass/volume] in Serum or PlasmaOrdered By: Shaikh Dotty on 10-01-2023 Glucose [Mass/Vol]115 mg/mA31-733JuulwxdqgMetrohealth Parma Medical CenterComment on above:ADA recommended reference rangeRandom Glucose Reference Range is dependent on time and content of last meal. Glucose of more than 200 mg/dL in a nonstressed, ambulatory subject supports the diagnosisof Diabetes Mellitus. Glucose mean value [Mass/volume] in Blood Estimated from glycated hemoglobin Ordered By: Shaikh Dotty on 28-30-5128Dseamlt glucose Estimated from glycated hemoglobin (Bld) [Mass/Vol]128 mg/dLMetrohealth Parma Medical CenterHematocrit Auto (Bld) [Volume fraction]Ordered By: Shaikh Dotty on 05-82-0531Tcxciimjcw (Bld) [Volume fraction]37.2 %38.8-50.0[facility] Hemoglobin A1c percentageOrdered By: Shaikh Dotty on 70-25-3734ObF9v (Bld) [Mass fraction]6.1 %4.3-5.6FSalem Regional Medical CenterComment on above: Increased risk for diabetes: 5.7 - 6.4diabetes: >6.4glycemic control for adults with diabetes: <7.0Hemoglobin [Mass/volume] in BloodOrdered By: Shaikh Dotty on 71-10-7434Qcmrbslmrk (Bld) [Mass/Vol]12.3 g/dL13.0-17.0[facility] CenterLeukocytes [#/volume] corrected for nucleated erythrocytes in Blood by Automated counOrdered By: Shaikh Dotty on 26-84-6393KCA corrected for nucl RBC Auto (Bld) [#/Vol]8.3 10*3/uL4.1-10.5FSalem Regional Medical Center Lymphocytes Auto (Bld) [#/Vol]Ordered By: Shaikh Dotty on 27-62-7142Xzkkdauovmm (Bld) [#/Vol]1.3 10*3/uL1.00-4.8[facility] Lymphocytes/100 WBC Auto (Bld)Ordered By: Shaikh Dotty on 10-01-2023 Lymphocytes/100 WBC (Bld)16.1 %.[facility] Auto (RBC) [Entitic mass]Ordered By: Shaikh Dotty on 49-28-4578PGS (RBC) [Entitic mass] 30.5 pg27.5-35.2FSalem Regional Medical CenterMCHC Auto (RBC) [Mass/Vol] Ordered By: Shaikh Dotty on 90-47-9232KOKM (RBC) [Mass/Vol]33.1 g/dL32.5-35.6 [facility] CenterMCV Auto (RBC) [Entitic vol]Ordered By: Shaikh Dotty on 89-25-5542ZRA (RBC) [Entitic vol]92.2 fL83.5-101[facility] CenterMonocytes Auto (Bld) [#/Vol]Ordered By: Shaikh Dotty on 04-59-8326Spykjjswt (Bld) [#/Vol]0.6 10*3/uL0.0-0.8[facility] CenterMonocytes/100 WBC Auto (Bld)Ordered By: Shaikh Dotty on 10-01-2023 Monocytes/100 WBC (Bld)7.6 %.[facility] CenterNeutrophils Auto (Bld) [#/Vol]Ordered By: Shaikh Dotty on 52-64-8639Lcqxrkaylun (Bld) [#/Vol]6.1 10*3/uL1.8-7.7FSalem Regional Medical CenterNeutrophils/100 WBC Auto (Bld) Ordered By: Shaikh Dotty on 08-18-3094Rmddqsknkkc/100 WBC (Bld)73.2 %.[facility] CenterNo Panel InformationOrdered By: Shaikh Dotty on 64-98-1283Mdmszslih GFR (CKD-EPI)35.887 mL/MinMetrohealth Parma Medical Center Pharmacy Creatinine Clearance (ChemN/AFSalem Regional Medical CenterNucleated erythrocytes [Presence] in Blood by Automated countOrdered By: Shaikh Dotty on 61-00-2073Bavptbmcy RBC Auto Ql (Bld)0.1 /100{WBC}0-0.5FSalem Regional Medical CenterPlatelet mean volume Auto (Bld) [Entitic vol]Ordered By: Shaikh Dotty on 71-67-2098Tqnnhsyz mean volume (Bld) [Entitic vol]8.7 fL6.6-10.1 [facility] CenterPlatelets Auto (Bld) [#/Vol]Ordered By: Shaikh Dotty on 97-92-3274Qqrywxxje (Bld) [#/Vol]270 10*3/hF554-563PcdszsqwaMetrohealth Parma Medical CenterPotassium [Moles/volume] in Serum or PlasmaOrdered By: Shaikh Dotty on 75-39-0697Rpeaccuhm [Moles/Vol]4.9 mmol/L3.5-5.1FSalem Regional Medical CenterProstate specific Ag [Mass/volume] in Serum or PlasmaOrdered By: Barbara Johnston on 33-20-2201Njqsienc specific Ag [Mass/Vol]0.420 ng/mL 0.000-4.000[facility] CenterComment on above:Serial tumor marker results determined by assays using different manufacturers or methods may not be comparable.[facility] Laboratory corn cutter and method:[employer] DXI, CHEMILUMINESCENT IMMUNOASSAY.Protein [Mass/volume] in Serum or PlasmaOrdered By: Shaikh Dotty on 41-59-8255Zfhloun [Mass/Vol]6.7 g/dL6.4-8.9[facility] CenterProtein [Mass/volume] in UrineOrdered By: Shaikh Dotty on 20-45-1581Byfrekv (U) [Mass/Vol]124 mg/dL0-9[facility] CenterRBC Auto (Bld) [#/Vol]Ordered By: Shaikh Dotty on 66-92-5944ESA (Bld) [#/Vol]4.04 10*6/uL3.90-5.60[facility] Hospitalerum or plasma albumin/globulin mass ratioOrdered By: Shaikh Dotty on 10-01-2023 Albumin/Globulin [Mass ratio]1.7 {ratio}[facility] Hospitalerum or plasma anion gap determinationOrdered By: Shaikh Dotty on 92-41-8947Javgo gap [Moles/Vol]9.9 mmol/L6.0-15.0[facility] Hospitalerum or plasma high density lipoprotein (HDL) cholesterol measurementOrdered By: Shaikh Dotty on 19-21-6001Fglnnzvxhxt in HDL [Mass/Vol]38 mg/hB60-56BqqnyhkuuMetrohealth Parma Medical CenterComment on above:HDL CHOL ATP-III CLASSIFICATION Cardiovascular RiskHDL > or equal to 60 mg/dL LOWHDL < 40 mg/dL HIGHSerum or plasma total cholesterol/high density lipoprotein (HDL) cholesterol mass ratOrdered By: Shaikh Dotty on 34-13-4254Dlpoipypeio.total/Cholesterol in HDL [Mass ratio]3.6 {ratio}<5.0[facility] Hospitalodium [Moles/volume] in Serum or PlasmaOrdered By: Shaikh Dotty on 31-79-3116Snckzs [Moles/Vol]140 mmol/V068-463 [facility] CenterThyrotropin [Units/volume] in Serum or Plasma Ordered By: Shaikh Dotty on 30-29-7215EOW Qn1.61 m[IU]/L0.45-5.33[facility] CenterTriglyceride [Mass/volume] in Serum or PlasmaOrdered By: Shaikh Dotty on 05-81-8230Ejbtmxedoreh [Mass/Vol]80 mg/dL0-149[facility] CenterComment on above:TRIG ATP III CLASSIFICATIONTRIG less than 150 mg/dL NormalTRIG 150-199 mg/dL Borderline highTRIG 200-500 mg/dL High TRIG greater than 500 mg/dL Very highStandard traceable to the Center for Disease Conrtrol and Prevention (CDC) test method.Urea nitrogen [Mass/volume] in Serum or PlasmaOrdered By: Shaikh Dotty on 92-90-8712Hmkf nitrogen [Mass/Vol] 33 mg/dL7-25[facility] CenterWBC Auto (Bld) [#/Vol]Ordered By: Shaikh Dotty on 73-90-6740VOH (Bld) [#/Vol]8.3 10*3/uL4.1-10.5FSalem Regional Medical CenterAmbulatory Visit Summaryon 65-89-3357Bykeuabvch Visit Summary YESENIA BROUSSARD :1945 Visit Date:09/18/2023 Ambulatory Visit Instructions Your Diagnosis Nocturia Erectile dysfunction BPH with urinary obstruction History of prostate cancer History of UTI Your Care Team Attending Physician - Barbara JOHNSTON MD Primary Care Physician - DOTTY MAK, This Is Your Medications List tadalafil (Cialis 20 mg Tab) Contact prescribing physician if questions or concerns acetaminophen-hydrocodone (Brewster 5/325 Tab) amlodipine (amLODIPine 5 mg Tab) [...] with PRESTON MAK, GLO Ortega When: Where: [address] [place] [address]- Medications What How Much When Instructions Unchanged tadalafil (Cialis 20 mg Tab) 1 Tablets By Mouth As Directed Do not exceed 20mg within 48 hours. Unchanged acetaminophen-hydrocodone (Brewster 5/ 325 Tab) By Mouth Every 6 [...] Keep a bladder diary (more content not included)...[facility] CenterPatient Educationon 60-26-6272Hksxwky EducationUrology Urinary Frequency, Adult Urinary frequency means [...] keep your urine pale yellow. ? Take hjma-ggm-rrqnmmr or prescription medicines. ? Eat foods that are high in fiber, such as beans, whole grains, and fresh fruits and vegetables. ? Limit foods that are high in fat and processed sugars, such as fried or sweet foods. General instructions ? Take uhev-vhz-ovkypdh and prescription medicines only as told by [...] muscles that help control urination. ? Take dxzf-frg-zwvvfdk and prescription medicines only as told by your health care provider. ? Contact a health care provider if your symptoms do not improve or get worse. This information is not intended to replace advice given to you by your health care provider. Make sure you discuss any questions you have with your health care provider. Document Revised: 12/21/2020 Document Reviewed: 12/21/2020 [employer] Patient Education ? 2022 [employer].[facility] Urology Office/Clinic Noteon 01-74-0649Jvozpin Office/Clinic NoteChief Complaint 3m to med change [...] Information PRESTON MAK, Barbara Warner, [address] [id number]- Additional Instructions: 6 mos w/ PSA Patient Education Urinary Frequency, Adult I, Tabitha Saenz, personally scribed for Dr. Johnston on 09/18/2023 11:55:58. . Documentation recorded by the scribTabitha boswell, accurately reflects the services(s) I performed and decisions made by me. Authenticated by Dr. Johnston on 09/18/2023 11:59:13. Problem List/Past Medical History Ongoing Anxiety BPH with (more content not included)...[facility] CenterComment on above:Result Comment: Electronically Signed By: Barbara JOHNSTON MD\.br\Date and Time Signed: 09/18/23 11:59 EDT\.br\Electronically Co-Signed By: Tabitha Saenzbr\Date and Time Co-Signed: 09/17/2410:56 EDTECG 12 Leadon 32-34-7829Dpycro sinus rhythm, right bundle branch block and left anterior fascicular block consistent with bifascicular block, abnormal ECGCPACSHolzer Hospital Work Phone: c Urineon 02-30-9566Glahrdxe identified Cx Nom (U) Microbiology PROCEDURE: Urine [...] Locations R1: This test was performed at: [facility], [address] [place] [address], [facility] , , DdxighIbvoffCoshocton Regional Medical CenterComment on above:Performed By: #### [id number] ####[facility] [address] [place], [place] [address]Consultation Noteon 33-63-8450Hqchkurfbmtm Note [id number]#1.00TIFMartins Ferry HospitalLab Reportson 01-42-1301Zvj Reports [id number]#1.00[facility] SystemPatient Educationon 91-53-8731Ngrfzhg EducationUrology Urinary Frequency, Adult Urinary frequency means [...] keep your urine pale yellow. ? Take nrpr-fut-koyqhaj or prescription medicines. ? Eat foods that are high in fiber, such as beans, whole grains, and fresh fruits and vegetables. ? Limit foods that are high in fat and processed sugars, such as fried or sweet foods. General instructions ? Take iluu-mcr-ahcmsnr and prescription medicines only as told by [...] muscles that help control urination. ? Take ocdu-iey-kmavcgd and prescription medicines only as told by your health care provider. ? Contact a health care provider if your symptoms do not improve or get worse. This information is not intended to replace advice given to you by your health care provider. Make sure you discuss any questions you have with your health care provider. Document Revised: 12/21/2020 Document Reviewed: 12/21/2020 [employer] Patient Education ? 2022 [employer].[facility] Urology Office/Clinic Noteon 60-72-8496Zttrjvd Office/Clinic NoteChief Complaint 2 month F/U HPI [...] Contact Information PRESTON MAK, Barbara Warner, [address] [place] [address]- Additional Instructions: 3 mos Patient Education Urinary Frequency, Adult Documentation recorded by the scribelbert Saenz accurately reflects the services(s) I performed and decisions made (more content not included)...Normal [facility] HospitalComment on above:Result Comment: Electronically Signed By: CLAIRE JAMES PA-C.br\Date and Time Signed: 07/07/2409:08 EST\.br\Electronically Co-Signed By: Tabitha Saenz.da\Date and Time Co- Signed: 02/06/24 09:50 ESTNUCLEAR STRESS TEST EXERCISE (CARD)on 06-19-2023 Interpreted By: Inge Dickerson and Beal Gina STUDY: MYOCARDIAL PERFUSION STRESS TEST WITH LEXISCAN Performing facility: [facility], [address] [place] [address], [address], [place] [address] [facility] Provider: Sylvester Grayson DO, [facility] PCP: Dr. Agus STORM Supervising provider: Inge Dickerson MD INDICATION: HTN, Bilateral Carotid, Chest Pain HISTORY: Gender: M; Age: 77 y/o ; Height: HT 177.8 cm cm; Weight: WT 89.812 kg kg. CAD; High Cholesterol; Abnormal EKG; RBBB Previous VT; Family HX CAD; Chest Pain; COPD; PAD, CVA, Carotid Disease, CKD Currently smoking. Cardiac catheterization. PTCA 1990s RCA. COMPARISON: No comparison. ACCESSION NUMBER(S): [id number] ORDERING CLINICIAN: CHAIM GRAYSON TECHNIQUE: ONE DAY [...] Inge Dickerson 06/19/2023 11:20 AM Dictation workstation: [id number], Radiologist, - 06/19/2023 Interpreted By: Inge Dickerson, Aracely Alicea STUDY: MYOCARDIAL PERFUSION STRESS TEST WITH LEXISCAN Performing facility: [facility], [address] [place] [address], [address], [place], [place] [address] Provider: Sylvester Grayson DO, [facility] PCP: Dr. Agus STORM Supervising provider: Inge Dickerson MD INDICATION: HTN, Bilateral Carotid, Chest Pain HISTORY: Gender: M; Age: 77 y/o ; Height: HT 177.8 cm cm; Weight: WT 89.812 kg kg. CAD; High Cholesterol; Abnormal EKG; RBBB Previous VT; Family HX CAD; Chest Pain; COPD; PAD, CVA, Carotid Disease, CKD Currently smoking. Cardiac catheterization. PTCA 1990s RCA. COMPARISON: No comparison. ACCESSION NUMBER(S): [id number] ORDERING CLINICIAN: CHAIM GRAYSON TECHNIQUE: ONE DAY [...] Inge Dickerson 06/19/2023 11:20 AM Dictation workstation: [id number] [facility] CenterNUCLEAR STRESS TEST EXERCISE (CARD)Ordered By: Radiologist Radiology on 16-89-6016BQZL [employer] Work Phone: NUCLEAR STRESS TESTon 48-39-2077WHUQGGE STRESS TEST Interpreted By: Inge Dickerson and Beal Gina STUDY: MYOCARDIAL PERFUSION STRESS TEST WITH LEXISCAN Performing facility: [facility], [address] [place] [address], [address], [address] Provider: Sylvester Grayson DO, [facility] PCP: Dr. Agus STORM Supervising provider: Inge Dickerson MD INDICATION: HTN, Bilateral Carotid, Chest Pain HISTORY: Gender: M; Age: 77 y/o ; Height: HT 177.8 cm cm; Weight: WT 89.812 kg kg. CAD; High Cholesterol; Abnormal EKG; RBBB Previous VT; Family HX CAD; Chest Pain; COPD; PAD, CVA, Carotid Disease, CKD Currently smoking. Cardiac catheterization. PTCA 1990s RCA. COMPARISON: No comparison. ACCESSION NUMBER(S): [id number] ORDERING CLINICIAN: CHAIM GRAYSON TECHNIQUE: ONE DAY [...] Inge Dickerson 06/19/2023 11:20 AM Dictation workstation: [id number]h Arthur G.[facility], [facility], Cancer Center NUCLEAR STRESS TEST EXERCISE (CARD)on 27-74-3515Hlqlteamc Study observation (narrative)[facility] 49-69-0967GNCZFphqat Visit (SPSLU) YESENIA BROUSSARD ([id number]) 1945 M Date Time Provider Department 06/12/23 11:00 AM [facility] During your visit today, we recorded the [...] heat Medications: See medication reconciliation list in [facility] MEDICATIONS: Hydrocodone, Gabapentin 2017 back surgery [...] pleasant 77-year-old male who recently moved from [place] to [place]. He reports longstanding history of back and [...] law suit/legal clai (more content not included)...[facility] [address] 56-54-1803Ayhks rhythm, right bundle branch block, left axis deviation, abnormal ECGCPACSHolzer Hospital Work Phone: Lab Reportson 63-71-7513Rxj Reports [id number]#1.00TIFMartins Ferry HospitalLab Reportson 20-33-6719Tkn Reports [id number]#1.00TIFMartins Ferry HospitalPhysician Orderon 84-08-6929Sojcpwodu Order [id number]#1.00TIFFNoAna [facility] Urineon 30-64-0472Kagvmfut identified Cx Nom (U)Microbiology PROCEDURE: Urine Culture [...] Locations R1: This test was performed at: [facility], [address] [place] [address], [address]- , , RdhsopZwcnblCoshocton Regional Medical CenterComment on above:Performed By: #### [id number] ####[facility] [address] [place], [place] [address]Amrvmpiqg 45-34-1057Gwtrprz [id number]#1.00[facility] County [id number]#1.00[facility] Health SystemAmbulatory Visit Summaryon 70-84-0270Cjdubpevqh Visit Summary YESENIA BROUSSARD :1945 Visit Date:04/21/2023 Ambulatory Visit Instructions Your Diagnosis Nocturia UTI symptoms Erectile dysfunction Prostate cancer BPH with urinary obstruction Tests Performed Urnls Dip Stick Auto w/o Microscopy POC 76949 Your Care Team Attending Physician - CLAIRE JAMES PA-C Primary Care Physician - DOTTY MAK, CARREON This Is Your Medications List oxybutynin (oxybutynin 5 mg Tab) Contact prescribing physician if questions or concerns acetaminophen-hydrocodone (Brewster 5/325 Tab) amlodipine (amLODIPine 5 mg Tab) [...] JAMES PA-C Where: [facility] Educationon 74-01-8071Phxllxq EducationUrology Erectile Dysfunction Erectile dysfunction (ED) is [...] these instructions at home: Medicines ? Take qstn-wes-juqtgpx and prescription medicines only as told by [...] These products include cig (more content not included)...[facility] Urology Office/Clinic Noteon 25-20-2163Vvpvhqz Office/Clinic NoteChief Complaint 2 month F/U178 HPI [...] 0.05mg qhs. Rx sent to [facility] in [place]. -Check electrolytes in 1 wk after starting [...] 50mg prn. Rx sent to [facility] in [place]. 4. Prostate cancer (C61: Malignant neoplasm of [...] with urinary obstruction (N4 (more content not included)...[facility] CenterComment on above:Result Comment: Electronically Signed By: CLAIRE JAMES PA-C\.br\Date and Time Signed: 04/21/2309:33 EST\.br\Electronically Co-Signed By: Rosario Byrne\.br\Date and Time Co-Signed: 04/21/23 09:14 ESTCreatinine [Mass/volume] in Serum or PlasmaOrdered By: Jose Martin Mchugh on 88-54-9269Hjztigjbjr [Mass/Vol]2.03 mg/dL0.70-1.30[facility] CenterNo Panel InformationOrdered By: Jose Martin Mchugh on 22-92-0226Samzwzvtp GFR (CKD-EPI)33.144 mL/MinMetrohealth [facility] Creatinine Clearance (Chem34.29[facility] CenterUrea nitrogen [Mass/volume] in Serum or PlasmaOrdered By: Jose Martin Mchugh on 35-53-8736Fwzu nitrogen [Mass/Vol]35 mg/dL7-[facility] Albumin [Mass/volume] in Serum or Plasma by Bromocresol green (BCG) dye binding methoOrdered By: Theo Thakkar on 71-21-3213Fbgrrjj BCG dye [Mass/Vol]4.1 g/dL 3.5-5.7FSalem Regional Medical CenterAutomated erythrocytes count in urine sediment (number/area)Ordered By: hTeo Thakkar on 79-83-7370IFB Auto (Urine sed) [#/Area]5-9 [HPF]0-4FSalem Regional Medical CenterAutomated leukocytes count in urine sediment (number/area)Ordered By: Theo Thakkar on 79-48-6618TJX Auto (Urine sed) [#/Area]Innumerable [HPF]0-4FSalem Regional Medical Center Bilirubin Test strip Ql (U)Ordered By: Theo Thakkar on 12-71-4228Uroqgambe Ql (U) NegativeNegativeMetrohealth Par[facility] Medical CenterCalcium [Mass/volume] in Serum or PlasmaOrdered By: Theo Thakkar on 97-43-5643Klhtgio [Mass/Vol]9.3 mg/dL 8.6-10.3FSalem Regional Medical CenterCarbon dioxide, total [Moles/volume] in Serum or PlasmaOrdered By: Theo Thakkar on 94-25-8668RE5 [Moles/Vol]26.4 mmol/L 21.0-31.0[facility] CenterChloride [Moles/volume] in Serum or PlasmaOrdered By: Theo Thakkar on 63-39-5392Vtancdzp [Moles/Vol]104 mmol/L98-107 [facility] CenterColor Auto (U)Ordered By: Theo Thakkar on 18-68-0815Xfohe (U)YellowYellowMetrohealth Par[facility] Medical CenterCreatinine [Mass/volume] in Serum or PlasmaOrdered By: Theo hTakkar on 43-67-9903Jyffkwhoyi [Mass/Vol]1.83 mg/dL0.70-1.30[facility] CenterCreatinine [Mass/volume] in UrineOrdered By: Theo Thakkar on 40-57-7853Xkjzyxkuqi (U) [Mass/Vol]162.0 mg/dL14.0-26.0[facility] CenterGlucose [Mass/volume] in Serum or PlasmaOrdered By: Theo Thakkar on 44-30-3166Bolexba [Mass/Vol]126 mg/eR90-565GjuhklugfMetrohealth [facility] Medical CenterComment on above:ADA recommended reference rangeRandom Glucose Reference Range is dependent on time and content of last meal. Glucose of more than 200 mg/dL in a nonstressed, ambulatory subject supports the diagnosisof Diabetes Mellitus.Ketones Auto test strip (U) [Mass/Vol]Ordered By: Theo Thakkar on 67-83-6059Twgevmi (U) [Mass/Vol] NegativeNegativeMetrohealth [facility] CenterLaboratory - UrinalysisOrdered By: Theo Thakkar on 58-37-3075Arsuuzv casts LM Ql (Urine sed)None seen [LPF]0-8 [facility] CenterMagnesium [Mass/volume] in Serum or Plasma Ordered By: Theo Thakkar on 39-65-8224Bxjzdrvfs [Mass/Vol]2.2 mg/dL1.9-2.7 [facility] CenterNitrite Test strip Ql (U)Ordered By: Theo Thakkar on 82-73-9057Ztesydf Ql (U)NegativeNegativeMetrohealth [facility] Medical CenterNo Panel InformationOrdered By: Theo Thakkar on 49-82-9244Cyyckkzhi GFR (CKD-EPI)37.537 mL/MinMetrohealth [facility] CenterPharmacy Creatinine Clearance (ChemN/AFSalem Regional Medical CenterParathyrin.intact [Mass/volume] in Serum or PlasmaOrdered By: Theo Thakkar on 03-09-2023 Parathyrin.intact [Mass/Vol]128.0 pg/yK76-40YroomuqkfMetrohealth [facility] Medical Center Phosphate [Mass/volume] in Serum or PlasmaOrdered By: Theo Thakkar on 03-09-2023 Phosphate [Mass/Vol]4.1 mg/dL3.7-7.2FSalem Regional Medical CenterPotassium [Moles/volume] in Serum or PlasmaOrdered By: Theo Thakkar on 23-21-7703Xtycfhvek [Moles/Vol]4.7 mmol/L3.5-5.1FSalem Regional Medical CenterProtein Auto test strip (U) [Mass/Vol]Ordered By: Theo Thakkar on 76-68-5212Zrvagif (U) [Mass/Vol] 100 mg/dLNegativeMetrohealth [facility] Medical CenterProtein [Mass/volume] in Urine Ordered By: Theo Thakkar on 54-43-6617Xukjrrs (U) [Mass/Vol]104 mg/dL0-9[facility] Hospitalerum or plasma anion gap determinationOrdered By: Theo Thakkar on 31-45-9231Nqyqn gap [Moles/Vol]10.3 mmol/L6.0-15.0[facility] Hospitalodium [Moles/volume] in Serum or PlasmaOrdered By: Theo Thakkar on 77-93-4416Fgsifp [Moles/Vol]136 mmol/T766-537XpxdkfdqdMetrohealth [facility] Center Specific gravity Auto test strip (U) [Rel density]Ordered By: Theo Thakkar on 69-56-1666Ggkrziep gravity (U) [Rel density]1.0181.001-1.030[facility] Hospitalquamous epithelial cells detection in urine sediment by light microscopyOrdered By: Theo Thakkar on 40-49-3655Zdnclbwxsf cells.squamous LM Ql (Urine sed)None seen [HPF]0-2FSalem Regional Medical CenterUrate [Mass/volume] in Serum or PlasmaOrdered By: Theo Thakkar on 73-20-6203Ljeyp [Mass/Vol]7.1 mg/dL4.4-7.6FSalem Regional Medical CenterUrea nitrogen [Mass/volume] in Serum or PlasmaOrdered By: Theo Thakkar on 09-03-9598Lgto nitrogen [Mass/Vol]30 mg/dL7-25[facility] CenterUrine bacteria detection by automated methodOrdered By: Theo Thakkar on 77-37-5841Uzgkafpf Auto Ql (U)None seenNone SeenMetrohealth Parma Medical CenterUrine clarity by refractometry automatedOrdered By: Theo Thakkar on 10-69-4976Gmsqpby Refractometry automated (U)CloudyCleOhioHealth Van Wert HospitalUrine culture routineOrdered By: Theo Thakkar on 49-29-2496Wyffvqmz identified Cx Nom (U)Staphylococcus aureusMetrohealth Parma Medical CenterBacteria identified Cx Nom (U)Staphylococcus aureusMetrohealth [facility] Medical CenterUrine glucose measurement by automated test strip (mass/volume)Ordered By: Theo Thakkar on 21-07-3247Kmyctvw Auto test strip (U) [Mass/Vol]Normal mg/dLNormalMetrohealth [facility] CenterUrine hemoglobin detection by automated test stripOrdered By: Theo Thakkar on 47-25-1165Djohwtdkun Auto test strip Ql (U)1+Negative [facility] CenterUrine leukocyte esterase detection by automated test stripOrdered By: Theo Thakkar on 59-78-3679Syyltxokf esterase Auto test strip Ql (U)4+NegativeMetrohealth Parma Medical CenterUrine protein/creatinine ratioOrdered By: Theo Thakkar on 29-97-8264Ejarbir/Creatinine (U) [Ratio]642 mg/g{Cre}0-200[facility] CenterUrobilinogen Auto test strip (U) [Mass/Vol]Ordered By: Theo Thakkar on 85-95-0173Hemgugeqixmk (U) [Mass/Vol]Normal mg/dLNormalMetrohealth [facility] CenterVitamin D+Metabolites [Mass/volume] in Serum or PlasmaOrdered By: Theo Thakkar on 25-53-8482Xewajqu D+Metabolites [Mass/Vol]18.9 ng/aG69-545KggjgzltoMetrohealth [facility] Medical CenterComment on above: VITAMIN D STATUS 25(OH)VITAMIN D RANGE (ng/mL) Deficient <20 Insufficient 20 to <44Vbaypwsddc07 to 100Reference: Grecia MF,Wayne PALMER, John VILLEGAS, et al. Evaluation,treatment, and prevention of vitamin D deficiency; an Endocrine Society clinical practice guideline. JCEM. 2010; 96(7):1911-30.pH Auto test strip (U)Ordered By: Theo Thakkar on 41-61-6895uU (U)5.5 [pH]5.0-9.0[facility] CenterAlanine aminotransferase [Enzymatic activity/volume] in Serum or PlasmaOrdered By: Shaikh Dotty on 86-20-1183ACW [Catalytic activity/Vol]12 U/L7-52[facility] CenterAlbumin [Mass/volume] in Serum or Plasma by Bromocresol green (BCG) dye binding methoOrdered By: Shaikh Dotty on 53-89-7885Xixxvke BCG dye [Mass/Vol]4.2 g/dL3.5-5.7FSalem Regional Medical CenterAlkaline phosphatase [Enzymatic activity/volume] in Serum or PlasmaOrdered By: Shaikh Dotty on 81-33-1594CYC [Catalytic activity/Vol]66 U/L 34-104[facility] CenterAspartate aminotransferase [Enzymatic activity/volume] in Serum or PlasmaOrdered By: Shaikh Dotty on 19-06-1064SXX [Catalytic activity/Vol]13 U/G34-86WzjxjejybMetrohealth [facility] Medical CenterBasophils Auto (Bld) [#/Vol]Ordered By: Shaikh Dotty on 67-37-9923Bwddwulwp (Bld) [#/Vol] 0.0 10*3/uL0.0-0.2FSalem Regional Medical CenterBasophils/100 WBC Auto (Bld) Ordered By: Shaikh Dotty on 97-88-6909Qwdbzpswx/100 WBC (Bld)0.5 %.[facility] CenterBilirubin.total [Mass/volume] in Serum or PlasmaOrdered By: Shaikh Dotty on 25-16-7002Kkuyfwdvo [Mass/Vol]0.3 mg/dL0.3-1.0[facility] CenterCalcium [Mass/volume] in Serum or PlasmaOrdered By: Shaikh Dotty on 16-60-9023Ewgtkkz [Mass/Vol]9.2 mg/dL8.6-10.3FSalem Regional Medical CenterCarbon dioxide, total [Moles/volume] in Serum or PlasmaOrdered By: Shaikh Dotty on 12-03-4477OT8 [Moles/Vol]26.1 mmol/L21.0-31.0[facility] CenterChloride [Moles/volume] in Serum or PlasmaOrdered By: Shaikh Dotty on 93-01-2221Vjuadtbh [Moles/Vol]109 mmol/Y62-257QhgoitronMetrohealth [facility] Medical CenterCholesterol [Mass/volume] in Serum or PlasmaOrdered By: Shaikh Dotty on 27-55-0701Ippfrjcragu [Mass/Vol]178 mg/mS531-834LfkwywyoaMetrohealth [facility] CenterComment on above:Chol less than 200 mg/dl low riskChol 201-239 mg/dl borderline riskChol 240 mg/dl and greater high riskCholesterol in LDL Calc [Mass/Vol]Ordered By: Shaikh Dotty on 00-99-1072Qwvzugruswi in LDL [Mass/Vol]115 mg/dL0-100[facility] CenterComment on above:LDL ATP III CLASSIFICATIONLDL less than 100 mg/dL OptimalLDL 100-129 mg/dL Near or above xsrcskmZWX571-629 mg/dL Borderline highLDL 160-189 mg/dL HighLDL greater than 189 mg/dL Very highCholesterol in VLDL Calc [Mass/Vol]Ordered By: Shaikh Dotty on 52-69-5703Ziptamitsjj in VLDL [Mass/Vol]32 mg/dLMetrohealth [facility] Medical CenterCreatinine [Mass/volume] in Serum or PlasmaOrdered By: Shaikh Dotty on 68-17-5874Bpulwbtgwb [Mass/Vol]1.80 mg/dL0.70-1.30[facility] CenterEosinophils Auto (Bld) [#/Vol]Ordered By: Shaikh Dotty on 03-00-9025Thabcsnrloq (Bld) [#/Vol]0.2 10*3/uL0.0-0.45[facility] CenterEosinophils/100 WBC Auto (Bld)Ordered By: Shaikh Dotty on 01-09-2023 Eosinophils/100 WBC (Bld)3.9 %.[facility] CenterErythrocyte distribution width Auto (RBC) [Ratio]Ordered By: Shaikh Dotty on 01-09-2023 Erythrocyte distribution width (RBC) [Ratio]14.6 %12.0-14.8[facility] CenterGlobulin Calc (S) [Mass/Vol]Ordered By: Shaikh Dotty on 16-34-8250Unlfaesu (S) [Mass/Vol]2.7 g/dLMetrohealth [facility] Center Glucose [Mass/volume] in Serum or PlasmaOrdered By: Shaikh Dotty on 01-09-2023 Glucose [Mass/Vol]114 mg/cQ78-423GdgntisqhMetrohealth [facility] Medical CenterComment on above:ADA recommended reference rangeRandom Glucose Reference Range is dependent on time and content of last meal. Glucose of more than 200 mg/dL in a nonstressed, ambulatory subject supports the diagnosisof Diabetes Mellitus. Hematocrit Auto (Bld) [Volume fraction]Ordered By: Shaikh Dotty on 01-09-2023 Hematocrit (Bld) [Volume fraction]40.3 %38.8-50.0[facility] CenterHemoglobin [Mass/volume] in BloodOrdered By: Shaikh Dotty on 01-09-2023 Hemoglobin (Bld) [Mass/Vol]13.3 g/dL13.0-17.0[facility] Leukocytes [#/volume] corrected for nucleated erythrocytes in Blood by Automated counOrdered By: Shaikh Dotty on 83-16-7967QYL corrected for nucl RBC Auto (Bld) [#/Vol]5.6 10*3/uL4.1-10.5FSalem Regional Medical CenterLymphocytes Auto (Bld) [#/Vol]Ordered By: Shaikh Dotty on 20-88-5412Dpkfhpjjpjl (Bld) [#/Vol]1.1 10*3/uL1.00-4.8[facility] CenterLymphocytes/100 WBC Auto (Bld)Ordered By: Shaikh Dotty on 18-57-6108Gqmmsuduvfo/100 WBC (Bld)19.3 % .[facility] CenterMCH Auto (RBC) [Entitic mass]Ordered By: Shaikh Dotty on 51-62-3788DXE (RBC) [Entitic mass]30.0 pg27.5-35.2FSalem Regional Medical CenterMCHC Auto (RBC) [Mass/Vol]Ordered By: Shaikh Dotty on 79-20-3990BJWB (RBC) [Mass/Vol]32.9 g/dL32.5-35.6FSalem Regional Medical CenterMCV Auto (RBC) [Entitic vol]Ordered By: Shaikh Dotty on 46-37-1883TMC (RBC) [Entitic vol]91.2 fL83.5-101[facility] CenterMonocytes Auto (Bld) [#/Vol]Ordered By: Shaikh Dotty on 97-27-7766Nmwgnjlvi (Bld) [#/Vol] 0.5 10*3/uL0.0-0.8[facility] CenterMonocytes/100 WBC Auto (Bld) Ordered By: Shaikh Dotty on 91-54-5924Jfwjvjmxj/100 WBC (Bld)8.7 %.[facility] CenterNeutrophils Auto (Bld) [#/Vol]Ordered By: Shaikh Dotty on 66-76-9987Czozieeeygv (Bld) [#/Vol]3.8 10*3/uL1.8-7.7FSalem Regional Medical CenterNeutrophils/100 WBC Auto (Bld)Ordered By: Shaikh Dotty on 16-95-5596Uugrrxohpxq/100 WBC (Bld)67.6 %.[facility] CenterNo Panel InformationOrdered By: Shaikh Dotty on 12-21-9292Xzcbiivth GFR (CKD-EPI) 38.289 mL/MinMetrohealth [facility] Medical CenterPharmacy Creatinine Clearance (ChemN/[facility]red Hospital DaytonNucleated erythrocytes [Presence] in Blood by Automated countOrdered By: Shaikh Dotty on 70-31-7595Rsvjbuxdb RBC Auto Ql (Bld)0.1 /100{WBC}0-0.5FSalem Regional Medical CenterPlatelet mean volume Auto (Bld) [Entitic vol]Ordered By: Shaikh Dotty on 63-88-8631Gyokcion mean volume (Bld) [Entitic vol]9.7 fL6.6-10.1FSalem Regional Medical Center Platelets Auto (Bld) [#/Vol]Ordered By: Shaikh Dotty on 83-11-6454Ygcpolvtw (Bld) [#/Vol]173 10*3/vU132-531FtmoixduiMetrohealth [facility] Medical CenterPotassium [Moles/volume] in Serum or PlasmaOrdered By: Shaikh Dotty on 01-09-2023 Potassium [Moles/Vol]4.9 mmol/L3.5-5.1FSalem Regional Medical CenterProtein [Mass/volume] in Serum or PlasmaOrdered By: Shaikh Dotty on 45-49-8668Touhbyd [Mass/Vol]6.9 g/dL6.4-8.9[facility] CenterRBC Auto (Bld) [#/Vol] Ordered By: Shaikh Dotty on 11-77-8220TCX (Bld) [#/Vol]4.42 10*6/uL3.90-5.60 [facility] Hospitalerum or plasma albumin/globulin mass ratio Ordered By: Shaikh Dotty on 58-74-6368Bpabizf/Globulin [Mass ratio]1.6 {ratio} [facility] Hospitalerum or plasma anion gap determinationOrdered By: Shaikh Dotty on 28-93-1735Lcqzg gap [Moles/Vol]9.8 mmol/L6.0-15.0[facility] Hospitalerum or plasma high density lipoprotein (HDL) cholesterol measurementOrdered By: Shaikh Dotty on 61-13-5783Mqlmwexzdrl in HDL [Mass/Vol]31 mg/bF79-03QflonhrceMetrohealth [facility] Medical CenterComment on above:HDL CHOL ATP-III CLASSIFICATION Cardiovascular RiskHDL > or equal to 60 mg/dL LOWHDL < 40 mg/dL HIGHSerum or plasma total cholesterol/high density lipoprotein (HDL) cholesterol mass ratOrdered By: Shaikh Dotty on 01-09-2023 Cholesterol.total/Cholesterol in HDL [Mass ratio]5.7 {ratio}<5.0[facility] Hospitalodium [Moles/volume] in Serum or PlasmaOrdered By: Shaikh Dotty on 46-04-4605Ryshue [Moles/Vol]140 mmol/D626-706AwixwzgkjMetrohealth [facility] Medical CenterTriglyceride [Mass/volume] in Serum or PlasmaOrdered By: Shaikh Dotty on 09-89-4584Cmjhvuhbymtq [Mass/Vol]162 mg/dL0-149[facility] CenterComment on above:TRIG ATP III CLASSIFICATIONTRIG less than 150 mg/dL NormalTRIG 150-199 mg/dL Borderline highTRIG 200-500 mg/dL High TRIG greater than 500 mg/dL Very highStandard traceable to the Center for Disease Co nrtrol and Prevention (CDC) test method.Urea nitrogen [Mass/volume] in Serum or PlasmaOrdered By: Shaikh Dotty on 87-71-1729Oeyl nitrogen [Mass/Vol]34 mg/dL 7-25[facility] CenterWBC Auto (Bld) [#/Vol]Ordered By: Shaikh Dotty on 92-79-7071IBK (Bld) [#/Vol]5.6 10*3/uL4.1-10.5FSalem Regional Medical CenterCNPNon 61-03-1082CQBMLpksiqcfg (IRRFV) HELENAYESENIA ([id number]) 1945 M Date Time Provider Department 01/05/23 [...] will need to be scheduled at [facility]. Allergies As of Date: 01/05/2023 (No Known Allergies) Date Reviewed: 11/19/2022 Reviewed by: Elizabeth Freire APRN.MORTGAGE SPECIALIST - Fully Assessed Reason for Visit: Patient Question [0047] Appointment [186] Prescriptions as of 01/05/2023 - [...] 11/19/2022 Encounter Status:Closed by EVELYN CHAMBERLAIN on 01/05/23NormalFakindred hospital northeast HospitalCULTURE URINEon 14-91-6544TLFNTMU URINECulture Observations: LIGHT GROWTH OF MIXED SKIN DANIELLE. NO POTENTIAL PATHOGENS SEEN.NormalThe [facility] HospitalComment on above:Performed By: #### URCX #### [facility] [address] [address] [address] Leighann Garcia Panel InformationOrdered By: Genoveva Nazario on 32-49-5762Ypsjrhzm Specific Antigen Total2.810 ng/mL0.000-4.000[facility] Basophils Auto (Bld) [#/Vol]Ordered By: Zeinab Justice on 47-78-5368Uqouwzaes (Bld) [#/Vol]0.0 10*3/uL0.0-0.2FSalem Regional Medical CenterBasophils/100 WBC Auto (Bld)Ordered By: Zeinab Justice on 07-48-7706Rxapkqgab/100 WBC (Bld)0.5 % .[facility] CenterBody fluid albumin measurement (mass/volume) Ordered By: Zeinab Justice on 53-12-7509Bwuagee (Body fld) [Mass/Vol]3.6 g/dL 3.2-5.5FSalem Regional Medical CenterCreatinine and Glomerular filtration rate.predicted panel (S/P/Bld)Ordered By: Zeinab Justice on 28-31-6470Zztyusuzts [Mass/Vol]1.65 mg/dL0.64-1.27[facility] CenterEosinophils Auto (Bld) [#/Vol]Ordered By: Zeinab Justice on 97-29-6260Ctdcpxajemp (Bld) [#/Vol]0.2 10*3/uL0.0-0.45[facility] CenterEosinophils/100 WBC Auto (Bld) Ordered By: Zeinab Justice on 19-74-0510Kjlecijwcsy/100 WBC (Bld)3.4 %.[facility] CenterErythrocyte distribution width Auto (RBC) [Ratio]Ordered By: Zeinab Justice on 56-55-5467Ujbzjlhrmju distribution width (RBC) [Ratio]15.0 % 12.0-14.8[facility] CenterEstimated glomerular filtration rate (GFR) non- AmericanOrdered By: Zeinab Justice on 27-63-5495QWD/1.73 sq M.predicted among non-blacks MDRD (S/P/Bld) [Vol rate/Area]41 mL/MinMetrohealth [facility] Medical CenterGlobulin Calc (S) [Mass/Vol]Ordered By: Zeinab Justice on 32-95-0620Gtvrctfg (S) [Mass/Vol]2.6 g/dLMetrohealth [facility] Center Hematocrit Auto (Bld) [Volume fraction]Ordered By: Zeinab Justice on 04-23-2022 Hematocrit (Bld) [Volume fraction]38.0 %38.8-50.0[facility] CenterHemoglobin [Mass/volume] in BloodOrdered By: Zeinab Justice on 04-23-2022 Hemoglobin (Bld) [Mass/Vol]12.3 g/dL13.0-17.0[facility] - Hematology and Cell countsOrdered By: Zeinab Justice on 04-23-2022 Nucleated RBC/100 WBC (Bld) [Ratio]0.2 %0-0.5FSalem Regional Medical Center Leukocytes [#/volume] in Blood by Automated countOrdered By: Zeinab Justice on 91-16-1394ULC (Bld) [#/Vol]5.3 10*3/uL4.5-11.0[facility] Lymphocytes Auto (Bld) [#/Vol]Ordered By: Zeinab Justice on 19-79-7611Lfacjhpswgf (Bld) [#/Vol]0.9 10*3/uL1.00-4.8[facility] CenterLymphocytes/100 WBC Auto (Bld)Ordered By: Zeinab Justice on 28-27-6478Mvcxoahyqdv/100 WBC (Bld) 17.1 %.[facility] CenterH Auto (RBC) [Entitic mass]Ordered By: Zeinab Justice on 22-31-0367CNQ (RBC) [Entitic mass]30.6 pg27.5-35.2FSalem Regional Medical CenterMCHC Auto (RBC) [Mass/Vol]Ordered By: Zeinab Justice on 76-63-4031YHWZ (RBC) [Mass/Vol]32.4 g/dL32.5-35.6FSalem Regional Medical CenterMCV Auto (RBC) [Entitic vol]Ordered By: Zeinab Justice on 38-92-8136KKP (RBC) [Entitic vol]94.4 fL83.5-101[facility] CenterMonocytes Auto (Bld) [#/Vol]Ordered By: Zeinab Justice on 96-86-0500Dhcqymcsf (Bld) [#/Vol] 0.6 10*3/uL0.0-0.8[facility] CenterMonocytes/100 WBC Auto (Bld) Ordered By: Zeinab Justice on 70-36-0284Nowdivsqu/100 WBC (Bld)10.5 %.[facility] CenterNeutrophils Auto (Bld) [#/Vol]Ordered By: Zeinab Justice on 71-53-3478Hfghxnrtbyg (Bld) [#/Vol]3.6 10*3/uL1.8-7.7FSalem Regional Medical CenterNeutrophils/100 WBC Auto (Bld)Ordered By: Zeinab Justice on 04-23-2022 Neutrophils/100 WBC (Bld)68.5 %.[facility] CenterNo Panel InformationOrdered By: Zeinab Justice on 81-79-9100Mhwnanwyj GFR ()49 mL/MinMetrohealth Parma Medical CenterComment on above:GFR estimated reference range: According to KDOQI guidelines, <60 ml/min/1.73m2 is sufficient todiagnose a patient with chronic kidney disease.Pharmacy Creatinine Clearance (ChemN/AFSalem Regional Medical CenterPlatelet mean volume Auto (Bld) [Entitic vol]Ordered By: Zeinab Justice on 31-72-9687Jtzkrrjp mean volume (Bld) [Entitic vol]9.7 fL6.6-10.1FSalem Regional Medical CenterPlatelets Auto (Bld) [#/Vol]Ordered By: Zeinab Justice on 34-10-8632Nwrujmbcp (Bld) [#/Vol]170 10*3/yA166-159AygqcgshwMetrohealth [facility] Medical CenterProtein [Mass/volume] in Serum or PlasmaOrdered By: Zeinab Justice on 40-92-4597Factudu [Mass/Vol]6.2 g/dL6.1-7.9 [facility] CenterRBC Auto (Bld) [#/Vol]Ordered By: Zeinab Justice on 61-50-9811JNW (d) [#/Vol]4.02 10*6/uL3.90-5.60[facility] Hospitalerum or plasma alanine aminotransferase measurement without P-5'-P (enzymatic activiOrdered By: Zeinab Justice on 98-94-1696SGO No additional P-5'-P [Catalytic activity/Vol]19 U/D55-95WsajskphzLima Memorial Hospitalerum or plasma albumin/globulin mass ratioOrdered By: Zeinab Justice on 04-23-2022 Albumin/Globulin [Mass ratio]1.4 {ratio}[facility] Hospitalerum or plasma alkaline phosphatase measurement (enzymatic activity/volume)Ordered By: Zeinab Justice on 29-82-9954COB [Catalytic activity/Vol]51 U/F22-77JbadrzonqLima Memorial Hospitalerum or plasma anion gap determinationOrdered By: Zeinab Justice on 98-51-9932Awjxc gap [Moles/Vol]13.2 mmol/L6.0-15.0[facility] Hospitalerum or plasma aspartate aminotransferase measurement (enzymatic activity/volume)Ordered By: Zeinab Justice on 88-24-7229GFX [Catalytic activity/Vol]18 U/D60-12CrpmqcofbLima Memorial Hospitalerum or plasma calcium measurement (mass/volume)Ordered By: Zeinab Justice on 23-46-2275Lxlombl [Mass/Vol]8.8 mg/dL8.2-10.2FDoctors Hospitalerum or plasma chloride measurement (moles/volume)Ordered By: Zeinab Justice on 04-23-2022 Chloride [Moles/Vol]104 mmol/T32-719IalcaqqsuLima Memorial Hospitalerum or plasma glucose measurement (mass/volume)Ordered By: Zeinab Justice on 04-23-2022 Glucose [Mass/Vol]98 mg/wO56-884HhaybxvimMetrohealth [facility] CenterComment on above:ADA recommended reference rangeRandom Glucose Reference Range is dependent on time and content of last meal. Glucose of more than 200 mg/dL in a nonstressed, ambulatory subject supports the diagnosisof Diabetes Mellitus.Serum or plasma potassium measurement (moles/volume)Ordered By: Zeinab Justice on 38-15-7441Hjnxozjhw [Moles/Vol]4.6 mmol/L3.5-5.1FDoctors Hospitalerum or plasma sodium measurement (moles/volume)Ordered By: Zeinab Justice on 60-35-8602Vrstfl [Moles/Vol]136 mmol/I530-117QyuqqwlsuLima Memorial Hospitalerum or plasma total bilirubin measurement (mass/volume)Ordered By: Zeinab Justice on 67-58-2304Lkofylrsi [Mass/Vol]0.5 mg/dL0.3-1.2FDoctors Hospitalerum or plasma total carbon dioxide measurement (moles/volume) Ordered By: Zeinab Justice on 82-22-3550OD9 [Moles/Vol]23.4 mmol/L22.0-30.0 [facility] Hospitalerum or plasma urea nitrogen measurement (mass/volume)Ordered By: Zeinab Justice on 49-77-5883Vwpn nitrogen [Mass/Vol]22 mg/dL9-[facility] CenterCBC W Auto Differential panel (Bld)on 00-63-0414Ejfpszejo (Bld) [#/Vol]<0.11 k/uLSelect Medical Specialty Hospital - AkronBasophils/100 WBC (Bld)0.3 %[facility] - AkronDifferential cell count method Nom (Bld)AutoCleveland ClinicEosinophils (Bld) [#/Vol]0.25 10*3/uL<0.46 k/uLSelect Medical Specialty Hospital - [place]ron Eosinophils/100 WBC (Bld)3.2 %[facility] - AkronErythrocyte distribution width (RBC) [Ratio]14.3 %11.5 - 15.0 %[facility] - AkronHematocrit (Bld) [Volume fraction]39.3 %39.0 - 51.0 %[facility] - AkronHemoglobin (Bld) [Mass/Vol]12.8 g/dL Low13.0 - 17.0 g/dLSelect Medical Specialty Hospital - AkronImmature granulocytes (Bld) [#/Vol]0.03 10*3/uL<0.10 k/uLSelect Medical Specialty Hospital - AkronImmature granulocytes/100 WBC (Bld)0.4 % [facility] - AkronLymphocytes (Bld) [#/Vol]1.53 10*3/uL1.00 - 4.00 k/uLSelect Medical Specialty Hospital - AkronLymphocytes/100 WBC (Bld)19.8 %[facility] CenterH (RBC) [Entitic mass] 31.4 pg26.0 - 34.0 pgClevelLouis Stokes Cleveland VA Medical CenterMCHC (RBC) [Mass/Vol]32.6 g/dL30.5 - 36.0 g/dLOhioHealth Southeastern Medical CenterV (RBC) [Entitic vol]96.6 fL80.0 - 100.0 fLCleveland ClinicMonocytes (Bld) [#/Vol]0.67 10*3/uL<0.87 k/uLAladdin ClinicMonocytes/100 WBC (Bld)8.7 %[facility] ClinicNeutrophils (Bld) [#/Vol]5.21 10*3/uL1.45 - 7.50 k/uLAladdin ClinicNeutrophils/100 WBC (Bld)67.6 %[facility]ronNucleated RBC (Bld) [#/Vol]<0.01 k/uLSelect Medical Specialty Hospital - AkronNucleated RBC/100 WBC (Bld) [Ratio]0.0 /100 WBCSelect Medical Specialty Hospital - AkronPlatelet mean volume (Bld) [Entitic vol]11.2 fL9.0 - 12.7 fLClevelecu health duplin hospital ClinicPlatelets (Bld) [#/Vol]183 10*3/uL150 - 400 k/uLSelect Medical Specialty Hospital - AkronRBC (Bld) [#/Vol]4.07 10*6/uLLow4.20 - 6.00 m/[facility] HospitalWBC (Bld) [#/Vol]7.71 10*3/uL3.70 - 11.00 k/uLAladdin ClinicCHEMISTRYOrdered By: SYSTEM SYSTEM on 72-46-6915Lfpzyyr [Mass/Vol]4.0 g/dLNormal3.3 - 5.0 gm/dLFTMC Remisol Albumin/Globulin [Mass ratio]1.2 {ratio}Normal1.1 - 2.2[facility] RemisolALP [Catalytic activity/Vol]52 [iU]/eAzwubu06 - 98 Int._Unit/LFTMC RemisolALT No additional P-5'-P [Catalytic activity/Vol]15 [iU]/dNormal6 - 46 Int._Unit/LFTMC RemisolAnion gap [Moles/Vol]10 mmol/LNormal6 - 16 mEq/LFTMC RemisolAST [Catalytic activity/Vol]17 [iU]/dNormal5 - 43 Int._Unit/LFTMC RemisolBilirubin [Mass/Vol]0.3 mg/dLNormal0.0 - 1.1 mg/dLFTMC RemisolCalcium [Mass/Vol]9.1 mg/dL Normal8.9 - 11.1 mg/dLFTMC RemisolChloride [Moles/Vol]107 mmol/BVvsdxo824 - 111 mmol/LFTMC RemisolCO2 [Moles/Vol]25 mmol/EYkyzax85 - 31 mmol/LFTMC Remisol Creatinine [Mass/Vol]1.8 mg/dLHigh0.5 - 1.3 mg/dLFTMC RemisolGFR/1.73 sq M.predicted among blacks MDRD (S/P/Bld) [Vol rate/Area]45 mL/min/1.73 m2Low >=59mL/min/1.73 m2FT Chem SGFR/1.73 sq M.predicted among non-blacks MDRD (S/P/Bld) [Vol rate/Area]37 mL/min/1.73 m2Low>=59mL/min/1.73 m2FT Chem S Globulin (S) [Mass/Vol]3.3 g/dLNormal1.4 - 4.0 gm/dLFTMC RemisolGlucose [Mass/Vol]95 mg/lCVezvfc23 - 199 mg/dLFTMC RemisolPotassium [Moles/Vol]4.5 mmol/LNormal3.5 - 5.3 mmol/LFTMC RemisolProtein [Mass/Vol]7.3 g/dLNormal6.0 - 7.8 gm/dLFTMC RemisolSodium [Moles/Vol]137 mmol/WWteyfu389 - 145 mmol/LFTMC RemisolUrea nitrogen [Mass/Vol]27 mg/dLHigh5 - 21 mg/dLFTMC RemisolUrea nitrogen/Creatinine [Mass ratio]15 mg/joOhdhqi45 - 20[facility] RemisolHEMATOLOGY Ordered By: SYSTEM SYSTEM on 13-97-7665Owscxzlwd/100 WBC (Bld)0.9 %Normal0.0 - 2.0 %[facility] HemeAutoSSBasophils/Leukocytes Auto (Bld) [Pure # fraction]0.1 E9/L Normal0.0 - 0.2 E9/LFTMC HemeAutoSSEosinophils/100 WBC (Bld)2.9 %Normal0.0 - 8.0 %[facility] HemeAutoSSEosinophils/Leukocytes Auto (Bld) [Pure # fraction]0.2 E9/L Normal0.0 - 0.5 E9/LFTMC HemeAutoSSLymphocytes/100 WBC (Bld)23.0 %Spurdr83.0 - 50.0 %[facility] HemeAutoSSLymphocytes/Leukocytes Auto (Bld) [Pure # fraction]1.6 E9/L Normal1.0 - 4.0 E9/LFTMC HemeAutoSSMonocytes/100 WBC (Bld)9.4 %Normal4.0 - 14.0 %[facility] HemeAutoSSMonocytes/Leukocytes Auto (Bld) [Pure # fraction]0.6 E9/LNormal 0.2 - 1.0 E9/LFTMC HemeAutoSSNeutrophils/100 WBC (Bld)63.8 %Kochzm00.0 - 75.0 % [facility] HemeAutoSSNeutrophils/Leukocytes Auto (Bld) [Pure # fraction]4.4 E9/LNormal 2.0 - 7.5 E9/LFTMC HemeAutoSSHEMATOLOGYOrdered By: Tyshawn Winchester on 53-28-1563Nhcqbiikntb distribution width (RBC) [Ratio]15.0 %High10.9 - 14.2 % [facility] HemeAutoSSHematocrit (Bld) [Volume fraction]40.2 %Kmuked93.7 - 49.0 %[facility] HemeAutoSSHemoglobin (Bld) [Mass/Vol]13.2 g/dLLow13.5 - 17.5 gm/dLFTMC HemeAutoSSMCH (RBC) [Entitic mass]30.2 wkOtzqej21.0 - 34.0 pgFTMC HemeAutoSSMCHC (RBC) [Mass/Vol]32.9 g/kLHwavjo82.4 - 36.0 gm/dLFTMC HemeAutoSSMCV (RBC) [Entitic vol]91.6 rOZfbwke61.0 - 100.0 fLFTMC HemeAutoSSPlatelet mean volume (Bld) [Entitic vol]9.8 fLNormal6.4 - 10.8 fLFTMC HemeAutoSSPlatelets (Bld) [#/Vol]197.0 E9/IHtnfzl344.0 - 500.0 E9/LFTMC HemeAutoSSRBC (Bld) [#/Vol]4.4 E12/LNormal4.3 - 5.9 E12/LFTMC HemeAutoSSWBC corrected for nucl RBC Auto (Bld) [#/Vol]6.9 E9/LNormal4.0 - 11.0 E9/LFTMC HemeAutoSSCovid-19 PCR (CVDTB)on 16-92-1478FPHU-CoV-2 (COVID-19) RNA WENCESLAO+probe Ql (Unsp spec)Not detectedNormal NOT DETECTEDThe [facility] HospitalComment on above:Result Comment: This test is not yet approved or cleared by the [place] FDA. When there are no FDA- approved or cleared tests available, and other criteria are met, FDA can make tests available under an emergency access mechanism called an Emergency Use Authorization (EUA). The EUA for this test is supported by the [place] of Health and Human Service's (HHS's) declaration [...] with SARS-CoV-2.Performed By: #### CVDTBH #### [facility] [address] [address] [address] Leighann SantanaPTH INTACTon 37-45-7041YBW, Mblvlw44 pg/yIHanuhh01-74Pop [facility] HospitalComment on above:Performed By: #### PTHINT #### [facility] [address] [address] [address] Leighann Gutiérrez D 25-OH LABCORPon 95-43-5822Dzqnyof D, 25-Ezymrvl35.2 ng/mL Critically low30.0-100.0The [facility] HospitalComment on above:Result Comment: Vitamin D deficiency has been defined by the [place] of Medicine and an Endocrine Society practice guideline as a level of serum 25-OH vitamin D less than 20 ng/mL (1,2). The Endocrine Society went on to further define vitamin D insufficiency as a level between 21 and 29 ng/mL (2). 1. IOM ([place] of Medicine). 2010. Dietary reference intakes for calcium and D. [place]: The National Academies Press. 2. Grecia MF, Wayne [place], John VILLEGAS, et al. Evaluation, treatment, and prevention of vitamin D deficiency: an Endocrine Society clinical practice guideline. JCEM. 2010; 96(7):1911-30.Performed By: #### VITADLC #### [facility] [address] [place] [address] Dr. Leighann SantanaHEMOGRAM AND PLATELon 70-84-5846Nxtblqqjtd (Bld) [Volume fraction]39.3 %Critically low42.0-54.0The [facility] HospitalComment on above: Performed By: #### HH ####[facility] [address] [address]Dr. Leighann SantanaHemoglobin (Bld) [Mass/Vol]12.5 g/dL Critically low14.0-18.0The [facility] HospitalComment on above:Performed By: #### HH ####[facility] [address] [address]Dr. Leighann SantanaA.O. [facility] (RBC) [Entitic mass]30.2 wjTpgova63.9-34.0The [facility] Comment on above:Performed By: #### HH ####[facility] [address] [address]Dr. Leighann SantanaHC (RBC) [Mass/Vol]31.8 g/dL Mofgvw77.9-35.2The [facility] HospitalComment on above:Performed By: #### HH ####[facility] [address] [address]Dr. Nathaniel SantanaV (RBC) [Entitic vol]94.9 fLCritically high80.0-94.0The [facility] HospitalComment on above:Performed By: #### HH ####[facility] [address] [address]Dr. Leighann SantanaPLT191 103/ul Trukux682-521Chg [facility] HospitalComment on above:Performed By: #### HH ####[facility] [address] [address]Dr. Nathaniel SantanaRBC4.14 106/ulCritically low4.70-6.10The [facility] HospitalComment on above:Performed By: #### HH ####[facility] [address] [address]Dr. Leighann SantanaWBC7.3 103/ulNormal4.0-11.0The [facility] HospitalComment on above:Performed By: #### HH ####[facility] [address] [address]Dr. Leighann SantanaMAGNESIUMon 03-52-3217Jkseptznx [Mass/Vol]1.9 mg/dLNormal1.8-2.4The [facility] HospitalComment on above:Performed By: #### RENAL, MG, URIC ####[facility] [address] [address]Dr. Leighann [facility] HospitalRENAL FUNCTION PANELon 61-85-0969Lheudnd [Mass/Vol]3.4 g/dLNormal3.4-5.0The [facility] Comment on above:Performed By: #### RENAL, MG, URIC ####[facility] [address] [address]Dr. Yilan ChangCalcium [Mass/Vol]8.7 mg/dLNormal8.5-10.1The [facility] HospitalComment on above:Performed By: #### RENAL, MG, URIC ####[facility] [address] [place], [place] [address]Dr. Yilan ChangChloride [Moles/Vol]105 mmol/LNormal 98-107The [facility] HospitalComment on above:Performed By: #### RENAL, MG, URIC ####[facility] [address] [place], [place] [address]Dr. Yilan ChangCO2 [Moles/Vol]26.5 mmol/FXqjcft21.0-32.0The [facility] HospitalComment on above:Performed By: #### RENAL, MG, URIC ####[facility] W[address] [place], [place] [address]Dr. Yilan ChangCreatinine [Mass/Vol]1.77 mg/dLCritically high0.70-1.30The [facility] Hospitalment on above:Performed By: #### RENAL, MG, URIC ####[facility] [address] [place], [place] [address]Dr. Yilan ChangEGFR-AF GTGUBGZR90 mL/min/1.60t2Ispfiudrxd low>=60The [facility] Hospitalment on above:Performed By: #### RENAL, MG, URIC ####[facility] [address] [place], [place] [address]Dr. Yilan ChangEGFR-NON AF UYBJBQFO20 mL/min/1.73m2 Critically low>=60The [facility] Hospitalment on above:Performed By: #### RENAL, MG, URIC ####[facility] [address] [place], [place] [address]Dr. Yilan ChangGlucose [Mass/Vol]136 mg/dLCritically xhxr12-083Afl [facility] HospitalComment on above:Performed By: #### RENAL, MG, URIC ####[facility] [address] [address]Dr. Ghadalan ChangPhosphate [Mass/Vol]3.6 mg/dLNormal2.6-4.7The [facility] Comment on above:Performed By: #### RENAL, MG, URIC ####[facility] [address] [address]Dr. Yilan ChangPotassium [Moles/Vol]4.5 mmol/LNormal3.5-5.1The [facility] HospitalComment on above: Performed By: #### RENAL, MG, URIC ####[facility] [address] [address]Dr. Yilan ChangSodium [Moles/Vol]140 mmol/LNormal 136-145The [facility] HospitalComment on above:Performed By: #### RENAL, MG, URIC ####[facility] [address] [address]Dr. Leighann ChangUrea nitrogen [Mass/Vol]25.0 mg/dLCritically high7.0-18.0The [facility] HospitalComment on above:Performed By: #### RENAL, MG, URIC ####[facility] [address] [address]Dr. Leighann SantanaUA RANDOM W/MICROSCOPICon 45-30-7833AIPNKMKLOPAGHWoczrnszAOVU SEENFulton County Health CenterComment on above:Performed By: #### UAMIC #### [facility] [address] [place] [address] Dr. Leighann Curtisirubin Ql (U)NegativeNormalNEGATIVEFulton County Health Center Comment on above:Performed By: #### UAMIC #### [facility] [address] [address] [address] Leighann SantanaCASTNONElbert SEENNormalNONE SEENFulton County Health CenterComment on above:Performed By: #### UAMIC #### [facility] [address] [address] [address] Leighann SantanaClarity (U)CLEARNormalCLEARThe [facility] HospitalComment on above: Performed By: #### UAMIC #### [facility] [address] [address] [address] Leighann Meza (U)LT. YELLOWNormalYELLOWFulton County Health CenterCombeaumont hospital on above:Performed By: #### UAMIC #### [facility] [address] [address] [address] Leighann SantanaCrystals LM Nom (Urine sed)NONE SEENNormalNONE SEENFulton County Health CenterComment on above:Performed By: #### UAMIC #### [facility] [address] [place] [address] Dr. Lawton ChangEpithelial cells LM Ql (Urine sed)FEWAbnormalNONE SEEN /RAREFulton County Health CenterCombeaumont hospital on above:Performed By: #### UAMIC #### [facility] [address] [place] [address] Dr. Leighann SantanaGlucose Ql (U)NegativeNormalNEGATIVEFulton County Health CenterCombeaumont hospital on above:Performed By: #### UAMIC #### [facility] [address] [place] [address] Dr. Leighann SantanaHemoglobin Ql (U)TRACE-INTACTAbnormalNEGATIVEFulton County Health CenterCombeaumont hospital on above:Performed By: #### UAMIC #### [facility] [address] [place] [address] Dr. Leighann SantanaKetones Ql (U)NegativeNormalNEGATIVEFulton County Health CenterCombeaumont hospital on above:Performed By: #### UAMIC #### [facility] [address] [place] [address] Dr. Leighann SantanaLEUKOCYTESMODERATEAbnormalNEGATIVEFulton County Health CenterCombeaumont hospital on above:Performed By: #### UAMIC #### [facility] [address] [place] [address] Dr. Leighann SantanaMUCOUSNONE SEENNormalNONE SEENFulton County Health CenterCombeaumont hospital on above:Performed By: #### UAMIC #### [facility] [address] [place] [address] Dr. Leighann SantanaNitrite Ql (U)PositiveAbnormalNEGATIVEFulton County Health Center Comment on above:Performed By: #### UAMIC #### [facility] [address] [address] [address] Leighann SantanapH (U)5.5 [pH]Normal5-9The [facility] HospitalComment on above: Performed By: #### UAMIC #### [facility] [address] [address] [address] Leighann SantanaIotegIKD4-1Uoiykmfb3-9Rnt [facility] HospitalComment on above:Performed By: #### UAMIC #### [facility] [address] [address] [address] Leighann SantanaSPEC GRAVITY>=1.356Tlrsvdyq5.005-<=1.025The [facility] Comment on above:Performed By: #### UAMIC #### [facility] [address] [place] [address] Dr. Leighann SantanaUA YLJGONO13 mg/dlAbnormalNEGATIVE/ TRACEThe [facility] Comment on above:Performed By: #### UAMIC #### [facility] [address] [address] [address] Leighann Mallorybilino Qn (U)0.2 {Jing'U}/dLNormal0.2 - 1.0The [facility] HospitalComment on above:Performed By: #### UAMIC #### [facility] [address] [address] [address] Leighann SnatanaWxtmoBHE04-49HmtwlyglLCPC SEENThe [facility] HospitalComment on above: Performed By: #### UAMIC #### [facility] [address] [address] [address] Leighann SantanaURIC ACID SERUMon 82-16-2609Dqniu [Mass/Vol]6.5 mg/dLNormal 3.5-7.2The [facility] HospitalComment on above:Performed By: #### RENAL, MG, URIC ####[facility] [address] [address]Dr. Leighann Troy T PROTEIN CREAT RATIOon 97-57-8931Nrimxqu (U) [Mass/Vol]73.2 mg/dLCritically high<=12.0[facility] CenterComment on above:Performed By: #### URTPCR #### [facility] [address] [address] [address] Leighann Guzman PROT CREAT RAT0.42NormalThe [facility] HospitalComment on above: Performed By: #### URTPCR #### [facility] [address] [address] [address] Leighann Troy DPGSO574.21 mg/sIOnsyux75.00-300.00[facility] Comment on above:Performed By: #### URTPCR #### [facility] [address] [address] [address] Leighann SantanaSURGICAL PATH REPORTon [id number] PATH REPORTSKettering Health [facility] Memorial Department of Pathology [address] [place] [address] Name: YESENIA BROUSSARD : 1945 [facility] [id number] Number: Gender: Male Location: [facility] Admit 75 years Attending BARBARA JOHNSTON Age: Provider: Ordering BARBARA JOHNSTON Provider: Consulting: Surgical Pathology Report ACCESSION: COLLECTED DATE/TIME: RECEIVED DATE/TIME: PATHOLOGIST: [id number] 06/06/2021 16:30 EST 06/07/2021 11:15 EST QUINN MAK, [facility] Final Diagnosis Report for THE [facility], [place] PROSTATE TISSUE; TURP: - PROSTATIC ACINAR ADENOCARCINOMA, 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 COMMENT: Intradepartmental consultation was obtained with diagnostic concurrence. CANCER CASE SUMMARY SPECIMEN Procedure Transurethral resection of the prostate (TURP) TUMOR Histologic Type Acinar adenocarcinoma Histologic Grade Grade Grade group 2 (Union Score 3 + 4 = 7) Percentage of Pattern 4 6 - 10% Intraductal Carcinoma (IDC) Not identified Cribriform Glands Not identified Print Date/ 06/11/2021 16:16 EST Number: Time: [facility] Department of Pathology [address] [place] [address] Name: YESENIA BROUSSARD : 1945 [facility] [id number] Number: Gender: Male Location: [facility] Admit 75 years Attending BARBARA JOHNSTON Age: Provider: Ordering BARBARA JOHNSTON Provider: Consulting: Surgical Pathology Report ACCESSION: COLLECTED DATE/TIME: RECEIVED DATE/TIME: PATHOLOGIST: [id number] 06/06/2021 16:30 EST 06/07/2021 11:15 EST QUINN [...] Print Date/ 06/11/2021 16:16 EST Number: Time: [facility] Department of Pathology [address] [place] [address] Name: YESENIA BROUSSARD : 1945 [facility] [id number] Number: Gender: Male Location: [facility] Admit 75 years Attending BARBARA JOHNSTON Age: Provider: Ordering BARBARA JOHNSTON Provider: Consulting: Surgical Pathology Report ACCESSION: COLLECTED DATE/TIME: RECEIVED DATE/TIME: PATHOLOGIST: [id number] 06/06/2021 16:30 EST 06/07/2021 11:15 EST QUINN MAK, [facility] Gross Description Labeled prostate tissue. Received in formalin are multiple hemicylindrical segments of khan- pink firm, but pliable tissue. The segments have an aggregate weight of 12 grams and measure in aggregate 7.8 x 6.4 x 2.0 cm. There are calculi present amongst the tissue segment. The specimen is entirely submitted in twelve cassettes. MP/dakotah 06/07/2021 Tissue pathology report for: [facility], [address] [place] [address]; PATHOLOGY SERVICES PROVIDED BY [facility], [facility] (CLIA #[id number]) in cooperation with [facility] at [address] [place] [address] (CLIA #[id number]) Codes CPT CODE: 36998 Print Date06/11/2021 16:16 EST Number: Time: [facility]edoComment on above:Performed By: #### [id number] #### [facility] Services [address] [place] [address] Improvement Spec: Gigi Peters MD Vital Signs Date TimeVital SignValuePerforming KboxuxjorXescpbkw43-69-7774 11:020400Body wzzciz293.8 cmBrian Avalos MD Work Phone: [phone])[address]10-14-2025 11:02-0400 Body mass index (BMI) [Ratio]28.3 kg/m2Brian Avalos MD Work Phone: [phone] [address]10-14-2025 11:02-0400 Body vrnduc39.35 kgBrian Avalos MD Work Phone: [phone] [place], [place] 1784610-14-2025 11:02-0400 Diastolic blood jtenkmhu57 mm[Hg]Brian Avalos MD Work Phone: [phone] [place], [place] [address]10-14-2025 11:02-0400 Heart rate71 /minBrian Avalos MD Work Phone: [phone])[address] [place], [place] [address]10-14-2025 11:02-0400 Respiratory rate20 /minBrian Avalos MD Work Phone: [phone] [place], [place] [address]10-14-2025 11:02-0400 SaO2% (BldA) [Mass fraction]97 %Brian Avalos MD Work Phone: [phone] [place], [place] 1784610-14-2025 11:02-0400 Systolic blood bbolheoj062 mm[Hg]Brian Avalos MD Work Phone: [phone])[address] [place], [place] 777[address]09-22-2025 11:37-0400 Body .8 cmBrian Avalos MD Work Phone: [phone] [place], [place] 777[address]09-22-2025 11:37-0400 Body mass index (BMI) [Ratio]28.1 kg/m2Brian Avalos MD Work Phone: [phone])[address] [place], [place] 777[address]09-22-2025 11:37-0400 Body .01 kgBrian Avalos MD Work Phone: [phone]09-22-2025 11:37-0400 Diastolic blood mm[Hg]Brian Avalos MD Work Phone: [facility]09-22-2025 11:37-0400 Heart rate75 /minBrian Avalos MD Work Phone: [facility]09-22-2025 11:37-0400 Respiratory rate18 /minBrian Avalos MD Work Phone: [facility]09-22-2025 11:37-0400 SaO2% (BldA) [Mass fraction]97 %Brian Avalos MD Work Phone: [facility]09-22-2025 11:37-0400 Systolic blood awjildfy857 mm[Hg]Brian Avalos MD Work Phone: [phone]08-20-2025 09:27-0400 Body .8 cmNA Luz Marina MAK Work Phone: [facility]08-20-2025 09:27-0400Body mass index (BMI) [Ratio]27.99 kg/m2PRASHANTH Nazario MD Work Phone: [facility]08-20-2025 09:27-0400Body temperature 98.6 [degF]PRASHANTH Nazario MD Work Phone: [facility]08-20-2025 09:27-0400Body xatqgg18.5 kgPRASHANTH Nazario MD Work Phone: [facility]08-20-2025 09:27-0400Diastolic blood bdpaiakd98 mm[Hg]PRASHANTH Nazario MD Work Phone: [facility]08-20-2025 09:27-0400Heart rate92 /min PRASHANTH Nazario MD Work Phone: [facility]08-20-2025 09:27-0400Respiratory rate 16 /AmberPRASHANTH Nazario MD Work Phone: [facility]08-20-2025 09:27-6082IpY0% (BldA) [Mass fraction]96 %PRASHANTH Nazario MD Work Phone: [facility]08-20-2025 09:27-0400Systolic blood vpvjkazg414 mm[Hg]PRASHANTH Nazario MD Work Phone: [facility]04-01-2025 11:30-0400Diastolic blood czpnpqwi11 mm[Hg]Jose Hector VISITOR SERVICES SPECIALIST-MORTGAGE SPECIALIST Work Phone: [facility]04-01-2025 11:30-0400 Systolic blood chcuvbqy138 mm[Hg]Jose Hector VISITOR SERVICES SPECIALIST-MORTGAGE SPECIALIST Work Phone: [facility]04-01-2025 11:16-0400 Body caaqiv720.8 cmJose Hector VISITOR SERVICES SPECIALIST-MORTGAGE SPECIALIST Work Phone: [facility]04-01-2025 11:16-0400 Body mass index (BMI) [Ratio]28.55 kg/w3Mkugaprashanth Hector VISITOR SERVICES SPECIALIST-MORTGAGE SPECIALIST Work Phone: [facility]04-01-2025 11:16-0400 Body vutrgc46.27 kgJose Hector VISITOR SERVICES SPECIALIST-MORTGAGE SPECIALIST Work Phone: [facility]04-01-2025 11:16-0400 Heart rate84 /Jyoti Hector VISITOR SERVICES SPECIALIST-MORTGAGE SPECIALIST Work Phone: [facility]03-17-2025 10:39-0400 Body .8 cmBrian Avalos MD Work Phone: [facility]03-17-2025 10:39-0400 Body mass index (BMI) [Ratio]28.4 kg/m2Brian Avalos MD Work Phone: [facility]03-17-2025 10:39-0400 Body nwfaqwihwcq48.8 [degF]Brian Avalos MD Work Phone: [facility]03-17-2025 10:39-0400 Body unycqa63.92 kgBrian Avalos MD Work Phone: [facility]03-17-2025 10:39-0400 Diastolic blood auskdscf27 mm[Hg]Brian Avalos MD Work Phone: [phone]03-17-2025 10:39-0400 Heart rate85 /minBrian Avalos MD Work Phone: [phone]03-17-2025 10:39-0400 Respiratory rate16 /minBrian Avalos MD Work Phone: [phone])[address] [place], [place] 7771303-17-2025 10:39-0400 SaO2% (BldA) [Mass fraction]98 %Brian Avalos MD Work Phone: [phone])[address] [place], [place] 7771303-17-2025 10:39-0400 Systolic blood pndtonyr296 mm[Hg]Brian Avalos MD Work Phone: [phone])[address] [place], [place] 7771302-13-2025 11:14-0500 Body fgowfl816.8 cmBrian Avalos MD Work Phone: [phone])[address] [place], [place] 7771302-13-2025 11:14-0500 Body vzjqkrdrluc30 [degF]Brian Avalos MD Work Phone: [phone])[address] [place], [place] 7771302-13-2025 11:14-0500 Body tujxep10 kgBrian Avalos MD Work Phone: [phone])[address] [place], [place] 7771302-13-2025 11:14-0500 Diastolic blood eexfymac36 mm[Hg]Brian Avalos MD Work Phone: [phone])[address] [place], [place] 7771302-13-2025 11:14-0500 Heart bshn717 /minBrian Avalos MD Work Phone: [phone]02-13-2025 11:14-0500 Respiratory rate18 /minBrian Avalos MD Work Phone: [phone]02-13-2025 11:14-0500 SaO2% (BldA) [Mass fraction]96 %Brian Avalos MD Work Phone: [facility]02-13-2025 11:14-0500 Systolic blood mm[Hg]Brian Avalos MD Work Phone: [facility]02-12-2025 13:16-0500 Body .8 cmBrittany Awrd AQUACULTURE PROGRAM DIRECTOR Work Phone: [facility] CenterUzlaebtusl37-05-4704 13:16-0500Body mass index (BMI) [Ratio]28.84 kg/i9Wjjdjwuu Ward AQUACULTURE PROGRAM DIRECTOR Work Phone: [facility] [phone] 13:16-0500Body temperature 97.7 [degF]Nasir Ward AQUACULTURE PROGRAM DIRECTOR Work Phone: [facility] CenterSljurleenb04-74-9266 13:16-0500Body mlaoqs13.17 kgBrittany Ward AQUACULTURE PROGRAM DIRECTOR Work Phone: [facility] CenterKkgrahwiqz63-28-6163 13:16-0500Diastolic blood riveurme27 mm[Hg]Nasir Ward AQUACULTURE PROGRAM DIRECTOR Work Phone: [facility] CenterHmrihahkcx80-73-0279 13:16-0500Heart rate94 /min Nasir Ward AQUACULTURE PROGRAM DIRECTOR Work Phone: [facility] CenterSeuofggtin82-88-9142 13:16-0500Respiratory rate16 /minBrnathenjustin Ward AQUACULTURE PROGRAM DIRECTOR Work Phone: [facility] CenterHegaewcdve60-19-0224 13:16-2409YvN2% (BldA) [Mass fraction]94 %Nasir Ward AQUACULTURE PROGRAM DIRECTOR Work Phone: [facility] CenterBwcehpkidb94-75-2893 13:16-0500Systolic blood nqwuzbob212 mm[Hg]Nasir Ward AQUACULTURE PROGRAM DIRECTOR Work Phone: [facility] CenterNxmgpppcpv26-36-4991 11:12-0500Body bfemud495.8 cmBrittany Ward AQUACULTURE PROGRAM DIRECTOR Work Phone: [place] [address]Bwttnczqqp14-85-3821 11:12-0500Body mass index (BMI) [Ratio]27.86 kg/k3Qyizvmtr Ward AQUACULTURE PROGRAM DIRECTOR Work Phone: 1(467)787-[address] [place], [place] [address]Znodwzujnd16-14-6298 11:12-0500Body temperature 96.3 [degF]Nasir Ward AQUACULTURE PROGRAM DIRECTOR Work Phone: [place] [address]Wreacjsmmu60-89-4283 11:12-0500Body cbkfaz76.09 kgBrtariq Ward AQUACULTURE PROGRAM DIRECTOR Work Phone: 1([phone] [place], [place] [address]Afiuukstqr85-56-9507 11:12-0500Diastolic blood bniokntd69 mm[Hg]Nasir Ward AQUACULTURE PROGRAM DIRECTOR Work Phone: 1(096)013-[address] [place], [place] [address]Wpslcqkmln01-88-6256 11:12-0500Heart rate93 /min Nasir Ward AQUACULTURE PROGRAM DIRECTOR Work Phone: [place] [address]Pqkdrwizsc57-23-3928 11:12-0500Respiratory rate16 /minBrtariq Ward AQUACULTURE PROGRAM DIRECTOR Work Phone: [place] [address]Legklwdypi86-91-8031 11:12-9111AjK2% (BldA) [Mass fraction]93 %Nasir Ward AQUACULTURE PROGRAM DIRECTOR Work Phone: [place] [address]Gvrjbloqcp51-89-3984 11:12-0500Systolic blood vmnfoxfn636 mm[Hg]Nasir Ward AQUACULTURE PROGRAM DIRECTOR Work Phone: 1(291)821-[address] [place], [place] [address]Mtzmqarlpm46-67-4797 11:31-0500Blood Pressure LocationBarbara JOHNSTON [facility]11-18-2024 11:31-0500Body qvwoqriyxoi53.6 [degF]Barbara JOHNSTON [facility]11-18-2024 11:31-0500Diastolic blood osfcwlfg64 mm[Hg]Barbara JOHNSTON [facility]11-18-2024 11:31-0500Heart rate95 /minPatrick JOHNSTON [facility]11-18-2024 11:31-0500Respiratory rate16 /minPatrick JOHNSTON [facility]11-18-2024 11:31-0500Systolic blood kqfyxqdw357 mm[Hg]Barbara JOHNSTON [facility]09-30-2024 08:28-0400Body lkjybe627.8 cmPHYSICIAN [facility]09-30-2024 08:28-0400Body mass index (BMI) [Ratio]27.4 kg/p0HJYNZSVBA [facility]09-30-2024 08:28-0400 Body zntrochajom19.8 [degF]PHYSICIAN [facility] 02-29-2024 08:28-0400Body rmweze98.86 kgPHYSICIAN [facility]09-30-2024 08:28-0400Diastolic blood pifqdome36 mm[Hg]PHYSICIAN [facility]09-30-2024 08:28-0400Heart rate98 /min PHYSICIAN [facility]09-30-2024 08:28-0400 Respiratory rate16 /minPHYSICIAN [facility] 02-29-2024 08:28-6122EoN1% (BldA) [Mass fraction]99 %PHYSICIAN [facility]09-30-2024 08:28-0400Systolic blood bdfkqrof287 mm[Hg]PHYSICIAN [facility]08-21-2024 17:46-0400 Body .8 cmNasir Ward NP Work Phone: [facility] CenterDbviuwaaah80-58-7021 17:46-0400Body mass index (BMI) [Ratio]27.55 kg/p4Xwsoxcur Ward AQUACULTURE PROGRAM DIRECTOR Work Phone: noSaint [facility] HospitalKlpixgzzkf79-03-6631 17:46-0400Body temperature 98.49 [degF]Nasir Gascapatrick AQUACULTURE PROGRAM DIRECTOR Work Phone: [facility] CenterEvgtcwiybx01-92-4926 17:46-0400Body gtkzby00.09 kgNasir Gascapatrick AQUACULTURE PROGRAM DIRECTOR Work Phone: [facility] CenterAmygzqobxf11-83-1860 17:46-0400Diastolic blood qetgtlob73 mm[Hg]Nasir Gascapatrick AQUACULTURE PROGRAM DIRECTOR Work Phone: [facility] CenterMfaojujcyn92-50-9019 17:46-0400Heart rate76 /min Nasir Gascapatrick AQUACULTURE PROGRAM DIRECTOR Work Phone: noWI HealthcareComment on above:97% N896-84-4542 17:46-0400Systolic blood xfhmtvyp046 mm[Hg]Nasir Gascapatrick AQUACULTURE PROGRAM DIRECTOR Work Phone: [facility] CenterJvbzkftmgf12-74-6381 14:33-0400Body mass index (BMI) [Ratio]27.49 kg/m2PRASHANTH Nazario MD Work Phone: [facility]07-16-2024 14:33-0400Body temperature 97.81 [degF]PRASHANTH Nazario MD Work Phone: [facility]07-16-2024 14:33-0400Body evjnhc87.9 kgPRASHANTH Nazario MD Work Phone: [place] [address]-16-2024 14:33-0400Diastolic blood ikivyggy53 mm[Hg]PRASHANTH Nazario MD Work Phone: [facility]07-16-2024 14:33-0400Heart rate86 /min PRASHANTH Nazario MD Work Phone: [facility]07-16-2024 14:33-0400Respiratory rate 16 /AmberPRASHANTH Nazario MD Work Phone: [place] [address]-16-2024 14:33-0755JtP8% (BldA) [Mass fraction]98 %PRASHANTH Nazario MD Work Phone: [facility]07-16-2024 14:33-0400Systolic blood msouoaxp314 mm[Hg]PRASHANTH Nazario MD Work Phone: [facility]05-16-2024 09:17-0400Body dhfgsu533.8 cmMD Shaikh Storm Work Phone: 1(462)211-[address] [place], [place] [address]005-16-2024 09:17-0400 Body mass index (BMI) [Ratio]28.1 kg/m2MD Shaikh Storm Work Phone: [phone]05-16-2024 09:17-0400 Body dibhutabddv90.8 [degF]MD Shaikh Storm Work Phone: 1(252)[address]05-16-2024 09:17-0400 Body ycemcn95 kgMD Shaikh Dotty Work Phone: 1(662)[address]05-16-2024 09:17-0400 Diastolic blood asjbqahx00 mm[Hg]MD Shaikh Storm Work Phone: 1(406)[address]05-16-2024 09:17-0400 Heart rate67 /minMD Shaikh Storm Work Phone: 1(794)928-[address] [place], [place] 1885005-16-2024 09:17-0400 Respiratory rate16 /minMD Shaikh Storm Work Phone: 1(731)185-[address] [place], [place] 1885005-16-2024 09:17-0400 SaO2% (BldA) [Mass fraction]94 %MD Shaikh Storm Work Phone: 1(045)183-[address] [place], [place] [address]005-16-2024 09:17-0400 Systolic blood dnmjcuyz124 mm[Hg]MD Shaikh Storm Work Phone: 1([phone])[address]04-19-2024 10:50-0400 Blood Pressure LocationPatrick PRESTON [facility]04-19-2024 10:50-0400Diastolic blood pizqgpfi78 mm[Hg]Barbara JOHNSTON [facility]04-19-2024 10:50-0400Heart rate76 /minPatrick PRESTON [facility]04-19-2024 10:50-0400Respiratory rate16 /minPatrick PRESTON [facility]04-19-2024 10:50-0400Systolic blood lytbqtoy937 mm[Hg]Barbara JOHNSTON [facility]03-19-2024 12:12-0400Diastolic blood ubnlnmwc69 mm[Hg]Chaim Grayson DO Work Phone: [facility]03-19-2024 12:12-0400 Systolic blood jprerbox630 mm[Hg]Chaim Grayson DO Work Phone: [facility]03-19-2024 11:52-0400 Body .8 cmWilavernvalencia Kenan DO Work Phone: [facility]03-19-2024 11:52-0400 Body mass index (BMI) [Ratio]28.12 kg/h3Lepfimd Kenan DO Work Phone: [facility]03-19-2024 11:52-0400 Body .91 kgWillmarkie Kenan DO Work Phone: [facility]03-19-2024 11:52-0400 Heart rate80 /minChaim Grayson DO Work Phone: [facility]01-18-2024 13:11-0500 Diastolic blood abpcvbna07 mm[Hg]Tram [address] [place] [address] 06-18-2023 13:11-0500Heart rate86 /minEly [address] [place] [address] 06-18-2023 13:11-0500Systolic blood oegryqif844 mm[Hg]Tram [address] [place], [place] [address]01-12-2024 11:11-0500Body .8 cmKodi Reynolds MD Work Phone: [facility]01-12-2024 11:11-0500Body akcazg41.91 kgKodi Reynolds MD Work Phone: [facility]01-04-2024 10:19-0500Diastolic blood noyxaoyd41 mm[Hg]Chaim Grayson DO Work Phone: [facility]01-04-2024 10:19-0500 Systolic blood zokevsvg341 mm[Hg]Chaim Grayson DO Work Phone: [facility]01-04-2024 10:18-0500 Body iwnrxg568.8 cmWijamila Grayson DO Work Phone: [facility]01-04-2024 10:18-0500 Body mass index (BMI) [Ratio]28.41 kg/z3AtfebznChaim Austindon DO Work Phone: [facility]01-04-2024 10:18-0500 Body ntehpw58.81 kgChaim Austindon DO Work Phone: [facility]01-04-2024 10:18-0500 Heart rate83 /minChaim Austindon DO Work Phone: [facility]11-21-2023 09:05-0500 Diastolic blood ytbprgyv32 mm[Hg]CLAIRE JAMES [facility]11-21-2023 09:05-0500Heart rate76 /Bryanna JAMES [facility]11-21-2023 09:05-0500Mean blood obbeovsb885 mm[Hg]CLAIRE BRITNI [facility]11-21-2023 09:05-0500Systolic blood mm[Hg]CLAIRE BRITNI [facility]11-21-2023 08:20-0500Blood Pressure LocationJENNIFER BRITNI [facility] [place] [address]-21-2023 08:20-0500Diastolic blood bauwbtmb65 mm[Hg]CLAIRE BRITNI [facility]11-21-2023 08:20-0500Heart rate79 /minJENNIFER BRITNI [facility]11-21-2023 08:20-0500Respiratory rate16 /minJENNIFER BRITNI [facility]11-21-2023 08:20-0500Systolic blood qedmbvwv931 mm[Hg]CLAIRE BRITNI [facility]11-16-2023 11:30-0500Body ttgxma747.8 cmMagermania Mchugh Other [facility] Other 11-16-2023 11:30-0500Body mass index (BMI) [Ratio] 28.26 kg/b8JlgazvlJose Martin Mchugh Other [employer] Other 11-16-2023 11:30-0500Body uzigktqfotn43.8 [degF] Jose Martin Mchugh Other [facility] Other 11-16-2023 11:30-0500Body jllgce68.36 kgJose Martin Mchugh Other [facility] Other 11-16-2023 11:30-0500Diastolic blood vrsdwcol52 mm[Hg] Jose Martin Mchugh Other [facility] Other 11-16-2023 11:30-0503GhK9% (BldA) [Mass fraction]97 % Jose Martin Mchugh Other [facility] Other 11-16-2023 11:30-0500Systolic blood ddjqxfut036 mm[Hg] Jose Martin Mchugh Other [place] Other 10-23-2023 12:55-0400Diastolic blood dapmcahe89 mm[Hg] MD Shaikh Storm Work Phone: [facility]10-23-2023 12:55-0400 Heart rate54 /minMD Shaikh Storm Work Phone: [facility]10-23-2023 12:55-0400 Respiratory rate16 /minMD Shaikh Storm Work Phone: [facility]10-23-2023 12:55-0400 SaO2% (BldA) [Mass fraction]95 %MD Shaikh Storm Work Phone: [facility]10-23-2023 12:55-0400 Systolic blood qsecrlpw512 mm[Hg]MD Shaikh Storm Work Phone: [facility]10-23-2023 09:48-0400 Inhaled oxygen flow rate4 L/minMD Shaikh Storm Work Phone: [facility]10-23-2023 07:22-0400 Body hzokzd503.8 cmMD Shaikh Storm Work Phone: [facility]10-23-2023 07:22-0400 Body mbjyrm27.35 kgMD Shaikh Storm Work Phone: [facility]10-12-2023 08:30-0400 Body .8 cmMattblanquita Mchugh Other [facility] Other 10-12-2023 08:30-0400Body mass index (BMI) [Ratio] 28.26 kg/g1CeqjxsdJose Martin Mchugh Other [facility] Other 10-12-2023 08:30-0400Body gbgjynxtnoc31.5 [degF] Jose Martin Mchugh Other [facility] Other 10-12-2023 08:30-0400Body odndjj78.36 kgMagermania Mchugh Other [facility] Other 10-12-2023 08:30-0400Diastolic blood vtxpefdr41 mm[Hg] Jose Martin Mchugh Other [facility] Other 10-12-2023 08:30-1181GwT6% (BldA) [Mass fraction]97 % Jose [facility]ugh [facility] Other 10-12-2023 08:30-0400Systolic blood gzzkasfr627 mm[Hg] Jose Martin Mchugh Other [place] Other 09-22-2023 11:15-0400Diastolic blood efccvzrr46 mm[Hg] MD Shaikh Storm Work Phone: 1(943)689-[address] [place], [place] 1885009-22-2023 11:15-0400 Heart rate45 /minMD Shaikh Storm Work Phone: 1(197)231-[address] [place], [place] 1885009-22-2023 11:15-0400 Respiratory rate18 /minMD Shaikh Storm Work Phone: 1(146)975-[address] [place], [place] 1885009-22-2023 11:15-0400 SaO2% (BldA) [Mass fraction]95 %MD Shaikh Storm Work Phone: 1(510)[address]09-22-2023 11:15-0400 Systolic blood dqlhckod354 mm[Hg]MD Shaikh Storm Work Phone: 1(669)[address]09-22-2023 11:07-0400 Body .8 cmMD Shaikh Storm Work Phone: 1(917)[address]09-22-2023 11:07-0400 Body mass index (BMI) [Ratio]29 kg/m2MD Shaikh Storm Work Phone: 1(272)[address]13 [address]09-22-2023 11:07-0400 Body kgMD Shaikh Storm Work Phone: 1(457)062-[address] [place], [place] 1885009-22-2023 07:53-0400 Body mmatbymtfzj20 [degF]MD Shaikh Storm Work Phone: 1(248)457-[address] [place], [place] 1885009-20-2023 11:30-0400 Body iolppb360.8 cmBonnie Tan Other [facility] [employer] Other 09-20-2023 11:30-0400Body mass index (BMI) [Ratio] 29.12 kg/t7CgqkauBonnie Tan Other [place] [facility] Other 09-20-2023 11:30-0400Body .8 [degF]Bonnie Tan Other [place] Other 09-20-2023 11:30-0400Body xgygbd11.08 kgJaric Tan Other [facility] Other 09-20-2023 11:30-0400Diastolic blood rzpkjzag48 mm[Hg] Bonnie Johnfilipeyaneli Other [facility] Other 09-20-2023 11:30-7963ScA7% (BldA) [Mass fraction]97 % Bonnie Tan Other [facility] Other 09-20-2023 11:30-0400Systolic blood jgozvqlj599 mm[Hg] Bonnie Tan Other [facility] Other 09-13-2023 14:48-0400Blood Pressure LocationJENNIFER BRITNI [facility]09-13-2023 14:48-0400Diastolic blood ztiscsoq23 mm[Hg]CLAIRE BRITNI [facility]09-13-2023 14:48-0400Heart rate80 /minJENNIFER BRITNI [facility]09-13-2023 14:48-0400Respiratory rate16 /minJENNIFER BRITNI [facility]09-13-2023 14:48-0400Systolic blood ikegxdan982 mm[Hg]CLAIRE BRITNI [facility]08-21-2023 13:04-0400Body njqaym12.63 kgPhijessie Nichols DO Work Phone: [facility]08-21-2023 13:04-0400Diastolic blood tshdyrdu37 mm[Hg]Jose Nichols DO Work Phone: [facility]08-21-2023 13:04-0400Heart rate48 /min Jose Nichols DO Work Phone: [facility]08-21-2023 13:04-0400Systolic blood eyrcbgbm779 mm[Hg]Jose Nichols DO Work Phone: [facility]07-05-2023 14:57-0400Blood Pressure LocationJENNIFER BRITNI [facility]07-05-2023 14:57-0400Diastolic blood imnkbiqb39 mm[Hg]CLAIRE BRITNI [facility]07-05-2023 14:57-0400Heart rate69 /minJENNIFER BRITNI [facility]07-05-2023 14:57-0400Respiratory rate16 /minJENNIFER BRITNI [facility]07-05-2023 14:57-0400Systolic blood atjpvxlb952 mm[Hg]CLAIRE BRITNI [facility]06-20-2023 13:29-0400Body kgxpvnuhiat76.71 [degF]PRASHANTH Nazario MD Work Phone: [facility]06-20-2023 13:29-0400Body llofbn08.53 kgPRASHANTH Nazario MD Work Phone: [facility]06-20-2023 13:29-0400Diastolic blood wtfeoabb31 mm[Hg]PRASHANTH Nazario MD Work Phone: [facility]06-20-2023 13:29-0400Heart rate56 /min PRASHANTH Nazario MD Work Phone: [facility]06-20-2023 13:29-0400Respiratory rate 18 /AmberPRASHANTH Nazario MD Work Phone: [facility]06-20-2023 13:29-1885HqB3% (BldA) [Mass fraction]96 %PRASHANTH Nazario MD Work Phone: [facility]06-20-2023 13:29-0400Systolic blood gclseccf401 mm[Hg]PRASHANTH Nazario MD Work Phone: [facility]11-21-2022 15:30-0500Body temperature 96.69 [degF]PRASHANTH Nazario MD Work Phone: [facility]11-21-2022 15:30-0500Body .71 kgPRASHANTH Nazario MD Work Phone: [facility]11-21-2022 15:30-0500Diastolic blood mm[Hg]PRASHANTH Nazario MD Work Phone: [facility]11-21-2022 15:30-0500Heart rate58 /min PRASHANTH Nazario MD Work Phone: [facility]11-21-2022 15:30-0500Respiratory rate 18 /AmberPRASHANTH Nazario MD Work Phone: [facility]11-21-2022 15:30-2907EvV2% (BldA) [Mass fraction]98 %PRASHANTH Nazario MD Work Phone: [facility]11-21-2022 15:30-0500Systolic blood xjfxvjbe046 mm[Hg]PRASHANTH Nazario MD Work Phone: [place] [address]-14-2022 15:04-0500Body temperature 97.59 [degF]PRASHANTH Nazario MD Work Phone: [phone] [address]-14-2022 15:04-0500Body yqftaj66.44 kgPRASHANTH Nazario MD Work Phone: [facility]11-14-2022 15:04-0500Diastolic blood tkvgrezh58 mm[Hg]PRASHANTH Nazario MD Work Phone: [phone]11-14-2022 15:04-0500Heart rate64 /min PRASHANTH Nazario MD Work Phone: 1(415)[address] [place] [address]-14-2022 15:04-0500Respiratory rate 16 /AmberPRASHANTH Nazario MD Work Phone: 1(581)354-[address] [place], [place] 368[address]11-14-2022 15:04-3627XkV3% (BldA) [Mass fraction]97 %PRASHANTH Nazraio MD Work Phone: [phone] [address]-14-2022 15:04-0500Systolic blood ffunfpyw313 mm[Hg]PRASHANTH Nazario MD Work Phone: [facility]11-07-2022 11:01-0500Body temperature 97.39 [degF]PRASHANTH Nazario MD Work Phone: [facility]11-07-2022 11:01-0500Body elgxqr27.35 kgPRASHANTH Nazario MD Work Phone: [facility]11-07-2022 11:01-0500Diastolic blood utfkfzna16 mm[Hg]PRASHANTH Nazario MD Work Phone: [phone]11-07-2022 11:01-0500Heart rate55 /min PRASHANTH Nazario MD Work Phone: [place] [address]-07-2022 11:01-0500Respiratory rate 18 /AmberPRASHANTH Nazario MD Work Phone: [facility]11-07-2022 11:01-3188DwA3% (BldA) [Mass fraction]98 %PRASHANTH Nazario MD Work Phone: [facility]11-07-2022 11:01-0500Systolic blood xsgudiat899 mm[Hg]PRASHANTH Nazario MD Work Phone: [facility]10-31-2022 15:33-0400Body temperature 96.69 [degF]PRASHANTH Nazario MD Work Phone: [facility]10-31-2022 15:33-0400Body dzbegb98.8 kgPRASHANTH Nazario MD Work Phone: [facility]10-31-2022 15:33-0400Diastolic blood mm[Hg]PRASHANTH Nazario MD Work Phone: [facility]10-31-2022 15:33-0400Heart rate54 /min PRASHANTH Nazario MD Work Phone: [facility]10-31-2022 15:33-0400Respiratory rate 18 /AmberPRASHANTH Nazario MD Work Phone: [facility]10-31-2022 15:33-6089PhD8% (BldA) [Mass fraction]97 %PRASHANTH Nazario MD Work Phone: [facility]10-31-2022 15:33-0400Systolic blood keppqyyw172 mm[Hg]PRASHANTH Nazario MD Work Phone: [facility]10-24-2022 16:03-0400Body temperature 98.01 [degF]PRASHANTH Nazario MD Work Phone: [facility]10-24-2022 16:03-0400Body afidon24.44 kgPRASHANTH Nazario MD Work Phone: [facility]10-24-2022 16:03-0400Diastolic blood cnhfrsla41 mm[Hg]PRASHANTH Nazario MD Work Phone: [facility]10-24-2022 16:03-0400Heart rate50 /min PRASHANTH Nazario MD Work Phone: [facility]10-24-2022 16:03-0400Respiratory rate 16 /AmberPRASHANTH Nazario MD Work Phone: [facility]10-24-2022 16:03-0252UzH5% (BldA) [Mass fraction]100 %PRASHANTH Nazario MD Work Phone: [facility]10-24-2022 16:03-0400Systolic blood iucenrqd610 mm[Hg]PRASHANTH Nazario MD Work Phone: [facility]10-18-2022 11:52-0400Body temperature 97.9 [degF]PRASHANTH Nazario MD Work Phone: [facility]10-18-2022 11:52-0400Body tlzniy41.44 kgNA Luz Marina MAK Work Phone: [facility]10-18-2022 11:52-0400Diastolic blood koomydyx67 mm[Hg]PRASHANTH Nazario MD Work Phone: [facility]10-18-2022 11:52-0400Heart rate56 /min PRASHANTH Nazario MD Work Phone: [facility]10-18-2022 11:52-0400Respiratory rate 16 /AmberPRASHANTH Nazario MD Work Phone: [facility]10-18-2022 11:52-4005EvG3% (BldA) [Mass fraction]96 %PRASHANTH Nazario MD Work Phone: [facility]10-18-2022 11:52-0400Systolic blood rxawdyou095 mm[Hg]PRASHANTH Nazario MD Work Phone: [facility]07-12-2022 09:19-0400Body .9 cmPRASHANTH Nazario MD Work Phone: [facility]07-12-2022 09:19-0400Body temperature 98.71 [degF]PRASHANTH Nazario MD Work Phone: [facility]07-12-2022 09:19-0400Body rerrcq05.35 kgPRASHANTH Nazario MD Work Phone: [facility]07-12-2022 09:19-0400Diastolic blood neqauzca83 mm[Hg]PRASHANTH Nazario MD Work Phone: [facility]07-12-2022 09:19-0400Heart rate51 /min PRASHANTH Nazario MD Work Phone: [facility]07-12-2022 09:19-0400Respiratory rate 16 /AmberPRASHANTH Nazario MD Work Phone: [facility]07-12-2022 09:19-1461MwN9% (BldA) [Mass fraction]97 %PRASHANTH Nazario MD Work Phone: [facility]07-12-2022 09:19-0400Systolic blood ohchuaac681 mm[Hg]PRASHANTH Nazario MD Work Phone: [facility]06-06-2022 09:48-0400Blood Pressure LocationBarbara JOHNSTON [facility] 06-06-2022 09:48-0400Diastolic blood dqfgdjek82 mm[Hg] Barbara JOHNSTON [facility] 06-06-2022 09:48-0400Heart rate52 /minBarbara JOHNSTON [facility] 06-06-2022 09:48-0400Systolic blood govyeroq581 mm[Hg] Barbara JOHNSTON [facility] 05-26-2022 16:40-0400Body khdbiv021.8 cmAbdul Vivian Other [facility] Other 05-26-2022 16:40-0400Body mass index (BMI) [Ratio] 29.01 kg/r0Mtgvz Vivian Other [facility] Other 05-26-2022 16:40-0400Body mkwpqgwonvf71 [degF]Theo Vivian Other [facility] Other 05-26-2022 16:40-0400Body afyudk87.72 kgAbdul Vivian Other [facility] Other 05-26-2022 16:40-0400Diastolic blood euiljegq35 mm[Hg] Theo Vivian Other [facility] Other 05-26-2022 16:40-0400Respiratory rate18 /minAbdul Vivian Other [facility] Other 05-26-2022 16:40-2422OhT2% (BldA) [Mass fraction]96 % Theo Vivian Other [facility] Other 05-26-2022 16:40-0400Systolic blood wkdnikvw618 mm[Hg] Theo Vivian Other [employer] Other Encounters Encounter DateEncounter TypeCare ProviderFacilityStart: 04-03-2025 End: 53-42-6472kicnokvoweAvycfmz R WATERSFacility:[facility] BellevueStart: 04-03-2025 End: 51-95-5443Mrhvpez encounter procedurePaharoldo JOHNSTON [facility] start: 03-29-2025 End: 62-86-3327hvvgysrrjhSizhmom R WATERSFacility:[facility]imaueStart: 03-29-2025 End: 52-50-6449Poedtsp encounter procedureBarbara JOHNSTON [facility] start: 03-23-2025 End: 01-03-9676jeburmacpbHtuo Naderer MD Work Phone: -[facility]: 03-23-2025 End: 02-59-1088Syuxjtti ReferredBarbara Johnston MD-[facility] Start: 03-23-2025 End: 58-23-1923mdmoorypuzTjfenmb R WATERSFacility:CD:[id number]: 03-15-2025 [facility]25 End: 13-61-3666rsfmhcjauuTnmm Naderer MD Work Phone: [facility] Work Phone: Start: 03-14-2025 End: 05-96-0032Ghzsvjh encounter procedureJebradley Nuñez DO-[facility] Work Phone: Start: 60-87-6863Dcj-patient / Non-visitBarbara Johnston MD-[facility] Work Phone: Start: 03-07-2025 End: 43-40-6454woqpcdaqcmOjyurxf R WATERSFacility:[facility]STtart: 03-54-6434Zsg- patient / Non-visitBarbara Johnston MD-[facility] [employer] Work Phone: Start: 03-01-2025 End: 93-53-7158vdsghupnoqYRGHGEast [facility] Start: 02-21-2025 End: 39-44-0027Bsawzfwev Result EncounterGeneric External Data ProviderNOMS External Department UnsolicitedStart: 02-21-2025 End: 44-59-6961Dnmbzlqkf Result EncounterGeneric External Data ProviderNOMS External Department UnsolicitedStart: 02-20-2025 End: 52-95-7138mrodecpypkLmuc Naderer MD Work Phone: [facility] Work Phone: Start: 02-20-2025 End: 43-16-0477Fvmopyl encounter procedureTheo Thakkar MD-[facility] Work Phone: Start: 02-13-2025 End: 00-07-6747Kvzvtcmsi Result EncounterGeneric External Data ProviderNOMS External Department UnsolicitedStart: 02-13-2025 End: 23-02-2482Efvakktkb Result EncounterGeneric External Data ProviderNOMS External Department UnsolicitedStart: 75-06-8714Bfg-patient / Non-visitTheo Thakkar MD-[facility] Professional [employer] Work Phone: Start: 01-18-2025 End: 56-12-9732Oglvkb outpatient visit 15 minutesG Jose Nazario MD Work Phone: Radiation OncologyComment on above:Cancer of prostate w/med recur risk (T2b-c or Nicola 7 or PSA 10-20) (HCC) (Primary Dx)Start: 01-18-2025 End: 91-20-7610uqkypagfopWPancho DE LA GARZAacility:[facility] Start: 01-12-2025 End: 94-01-6186Amphchsua Result EncounterGeneric External Data ProviderNOMS External Department UnsolicitedStart: 01-12-2025 End: 64-57-9907Ehvawmkvc Result EncounterGeneric External Data ProviderNOMS External Department UnsolicitedStart: 01-12-2025 End: 78-79-6246cxdxaibwmkOPancho DE LA GARZAacility:[facility] Start: 09-12-2024 End: 80-50-2297XabpmuKmbv Naderer MD Work Phone: [facility] FMComment on above:Primary hypertension ([facility]/HCC)Start: 08-30-2024 End: 09-62-5197rbnonaidunBWMXR K Premier HealthStart: 08-30-2024 End: 84-37-0607Rlpjja outpatient visit 15 minutesJose Hector VISITOR SERVICES SPECIALIST-MORTGAGE SPECIALIST Work Phone: FirelandsComment on above:Mixed hyperlipidemia (Primary Dx); Bilateral carotid artery disease, unspecified type; Hypertension, unspecified type; BMI 28.0-28.9,adult; Smoker; Prostate cancer (Multi); Chronic kidney disease, stage 3b (Multi); ASHD (arteriosclerotic heart disease); PVD (peripheral vascular disease) ([facility]-HCC)Start: 08-29-2024 End: 43-14-1818hejlbbkfyvIZTPEYHA E PERRYFacility:FTMCStart: 08-29-2024 End: 73-44-1485Kup Drop offJENNIFER E BRITNI [facility] Start: 08-29-2024 End: 09-72-4500zutixgkatcDHXXBTRY E PERRYFacility:EU BellevueStart: 08-22-2024 End: 11-44-9627jkuiivlpigWnsxxi X OrzechFacility:FTMCStart: 08-22-2024 End: 60-99-1755Kav Drop offAurora X Orzech [facility] Start: 08-22-2024 End: 20-52-5443gvkerkvvodFvfpbtg R WATERSFacility:EU BellevueStart: 08-18-2024 End: 35-59-0087aycsjzyskfVQOWRZZ [facility]tart: 08-15-2024 End: 10-89-4228qqibkmtroxEzlh Naderer MD Work Phone: [facility] Work Phone: Start: 08-15-2024 End: 34-86-3351Jvcnpxo encounter procedureBrian Avalos MD Work Phone: [facility] Work Phone: Start: 08-10-2024 End: 60-98-4190Dbfnzff encounter procedureBrian Avalos MD Work Phone: [facility] [place] Work Phone: Start: 08-10-2024 End: 30-74-6946ivrhxualncYayh Naderer MD Work Phone: [facility] Work Phone: Start: 08-08-2024 End: 02-07-9214Mwh Drop offJENNIFER E BRITNI [facility] Start: 08-08-2024 End: 56-10-6631nhcnwimqeeVTEAPMEI E PERRYFacility:FTMCStart: 07-14-2024 End: 44-26-5739Hufbidvgj department patient visitBrian Avalos MD Work Phone: [facility]-Emer[facility] Work Phone: Start: 07-13-2024 End: 25-51-3955Uyrfbd flowsheetBrtariq Duttonk AQUACULTURE PROGRAM DIRECTOR Work Phone: noms CWM FMStart: 07-13-2024 End: 16-11-0990Bqoxmv flowsheetBrtariq Lopeztrick AQUACULTURE PROGRAM DIRECTOR Work Phone: noms CWM FMStart: 07-13-2024 End: 38-06-6615Vyvtdj outpatient visit 15 minutesBrtariq Duttonk AQUACULTURE PROGRAM DIRECTOR Work Phone: NOTP CWM FMComment on above:Stage 3a chronic kidney disease (HCC) (CMS/HCC) (Primary Dx); Lumbar stenosis with neurogenic claudication; Mixed hyperlipidemia (CMS/HCC); Primary hypertension (CMS/HCC)Start: 07-13-2024 End: 54-73-6250sfwiylgtigYDBPOGQI FITZPATRICKNot AvailableStart: 04-21-2024 End: 48-24-3546Cadoes flowsheetBrittany Ward AQUACULTURE PROGRAM DIRECTOR Work Phone: noms CWM FMStart: 04-21-2024 End: 69-83-5829Gdmlfy flowsheetBrittany Ward AQUACULTURE PROGRAM DIRECTOR Work Phone: noms CWM FMStart: 04-21-2024 End: 54-24-0578Bbbwfo outpatient visit 15 minutesBrittany Ward AQUACULTURE PROGRAM DIRECTOR Work Phone: noms CWM FMComment on above:Mixed hyperlipidemia (CMS/HCC) (Primary Dx); Primary hypertension (CMS/HCC); Stage 3a chronic kidney disease (HCC) (CMS/HCC)Start: 04-21-2024 End: 92-77-9583kfoyyyqcwxOJJQNQRN FITZPATRICKNot AvailableStart: 04-18-2024 End: 77-75-7175ulgbgkuiexVeucura R WATERSFacility:EU ueStart: 04-18-2024 End: 48-35-1907Jvspbjc encounter procedureBarbara JOHNSTON [facility] start: 04-07-2024 End: 08-25-9921Lfr Drop offKarime Gunderson [facility] Start: 04-07-2024 End: 16-60-9846kywoyfpuxoHkssqg J GaleaFacility:FTMCStart: 04-07-2024 End: 61-32-0484Mwckiks encounter procedureAlysbakari Gunderson [facility] start: 02-29-2024 End: 81-91-5465bibnwyadqgQPIKKSLDA NO [facility] Work Phone: Start: 02-29-2024 End: 84-64-1385Mtnurpx encounter procedurePHYSICIAN NO [facility] Nephrology [place] Work Phone: Start: 02-25-2024 End: 36-34-2955renpuigbsqTSAHWZFEO NO [facility] Work Phone: Start: 02-25-2024 End: 33-43-5431Roalowl encounter procedurePHYSICIAN NO [facility] [place] Work Phone: Start: 02-18-2024 End: 46-31-3182PlsjqkLvbcfz [place] MANOMS CWM FMComment on above:Primary hypertension (CMS/HCC)Start: 02-02-2024 End: 79-56-0618NvrcqwNwdexd [place] MANOMS CWM IMComment on above:Primary hypertension (CMS/HCC)Start: 01-20-2024 End: 28-59-2372Hmmdfw outpatient visit 25 minutesBrtariq Duttonk AQUACULTURE PROGRAM DIRECTOR Work Phone: noms CWM FMComment on above:Primary hypertension (CMS/HCC) (Primary Dx); Coronary artery disease involving [place] coronary artery of [place] heart without angina pectoris (CMS/HCC); Stage 3a chronic kidney disease (HCC) (CMS/HCC); Gastroesophageal reflux disease without esophagitis; Tobacco abuse; Prostate cancer (CMS/HCC); Benign prostatic hyperplasia with lower urinary tract symptoms, symptom details unspecifiedStart: 01-20-2024 End: 12-14-8286lwrektciwiSNNLODGR FITZPATRICKNot AvailableStart: 01-20-2024 End: 27-00-3581Pktgcz flowsheetBrittany Ward AQUACULTURE PROGRAM DIRECTOR Work Phone: noms CWM FMStart: 01-20-2024 End: 65-25-3685Oliejw flowsheetBrittany Ward AQUACULTURE PROGRAM DIRECTOR Work Phone: noms CWM FMStart: 12-15-2023 End: 82-61-3812Acmimah encounter procedureG Jose Nazario MD Work Phone: Radiation OncologyComment on above:Prostate cancer (HCC) (Primary Dx); Stage 3 chronic kidney disease, unspecified whether stage 3a or 3b CKD (HCC) Start: 12-08-2023 End: 94-85-5603ybjxwypsxqFSNNTX FAWWADNot AvailableStart: 10-15-2023 End: 60-48-0719Aipnerr encounter procedureMD Dotty Work Phone: [facility] Vascular Surgery Work Phone: Start: 10-01-2023 End: 41-85-1474jexhephkymMC Dotty Work Phone: [facility] Work Phone: Start: 10-01-2023 End: 69-65-8471Dlgokdq encounter procedureMD Shaikh Shubhamkaushik Work Phone: [facility] [place] Work Phone: Start: 09-28-2023 End: 63-46-8258qkmsycbrnfFKFOFP FAWWADNot AvailableStart: 09-18-2023 End: 94-75-1716rkwrxtnqlpFiizich R WATERSFacility:EU BellevueStart: 09-18-2023 End: 21-03-2140Gppyihf encounter procedurePaharoldo JOHNSTON [facility] Caret start: 19-42-1983Uze-patient / Non-visit Carreongeri Storm Work Phone: [facility] Work Phone: Start: 08-18-2023 End: 04-52-3188Ikipzi outpatient visit 25 minutesChaim Grayson DO Work Phone: uh [facility] CenterComment on above:Hypertension, unspecified type; Mixed hyperlipidemia; Bilateral carotid artery disease, unspecified type (CMS/HCC); History of VT (myocardial infarction); BMI 28.0-28.9,adult; ASHD (arteriosclerotic heart disease); PVD (peripheral vascular disease) ([facility]/HCC); Smoker; Chest pain, unspecified typeStart: 08-10-2023 End: 56-65-1361owqfpqlywmGivipuxAdalid Will MDFacility:PM Caret Start: 07-07-2023 End: 02-27-4554tvoafidwgaCENCRJNZ E PERRYFacility:FTMCStart: 06-18-2023 End: 63-17-7182obgvphyxlgCGNMLCV S SHELDONProMedica Toledo Hospitaltart: 06-18-2023 End: 57-73-1931Guqbqifll Result EncounterGeneric External Data ProviderNOMS External Department UnsolicitedStart: 06-18-2023 End: 81-97-4139Dhmtdavdn Result EncounterGeneric External Data ProviderNOMS External Department UnsolicitedStart: 06-18-2023 End: 77-48-4580Bohhotuniw hospital visit by Mimi [place] [facility] 1 [facility] HospitalStart: 06-12-2023 End: 75-77-6568iszycqqbsvLBKNHDU G MENDISFacility:[facility] Hospitaltart: 06-12-2023 End: 08-93-1948Aseisi outpatient new 45 minutesBilal Conor Reynolds MD Work Phone: [facility] InstituteComment on above:Spondylolisthesis of lumbar region (Primary Dx)Start: 06-04-2023 End: 33-10-7472Xeemcv consultation new/estab patient [address] Grayson DO Work Phone: uh [facility] CenterComment on above:Hypertension, unspecified type; Stage 3 chronic kidney disease, unspecified whether stage 3a or 3b CKD (CMS/HCC); Mixed hyperlipidemia; Bilateral carotid artery disease, unspecified type (CMS/HCC); Smoker; Chest pressureStart: 05-21-2023 End: 97-90-9590clwttiwlyvCE Shaikh Fawwad Work Phone: [facility] Work Phone: Start: 05-21-2023 End: 22-77-3622Tujwisa encounter procedureMD Shaikh Dotty Work Phone: [facility]-Electrodiagnostics Work Phone: Start: 97-12-6384Wmgiuffhj encounterG Jose Nazario MD Work Phone: Cancer Appts MCComment on above:Appointment ConfirmationStart: 02-60-8152othejicgprLghhcgn Genoveva Nichols DO Work Phone: [facility] FHCStart: 48-69-0827Annurtm encounter procedurePhillip Genoveva Mendgentry DO Work Phone: Spvqp MedicineComment on above:Consultation with a surgeonStart: 04-21-2023 End: 39-79-9330seqvndmehdBUIRUFCY E PERRYFacility:FTMCStart: 04-21-2023 End: 33-48-6229Feo Drop offJENNIFER E BRITNI [facility] Start: 04-21-2023 End: 73-13-5468Xogbzhv encounter procedureJENNIFER E BRITNI [facility] start: 23-20-3589Lxqxau outpatient visit 15 minutes Jose Martin Mena Vascular SurgeryStart: 04-16-2023 End: 46-76-5555oubzasqpknLJ Shaikh Donaldbooker Work Phone: [place] cuaQea Other Start: 04-16-2023 End: 89-01-7736Htpmnvm encounter procedureMD Shaikh Storm Work Phone: [facility] VascularStart: 03-23-2023 End: 93-05-0973Rfgisivlr to same day surgery center Shubhamstaciagage Work Phone: [facility]-Interventional Radiology Work Phone: Start: 03-23-2023 End: 96-49-6328bylhqgmrhoEN Shaikh Donaldbooker Work Phone: [facility] Work Phone: Start: 03-12-2023 End: 35-57-5462dbvttzoljoQsovvko Langenberg Other [place] cuaQea Other Start: 56-33-9877Vaexak outpatient visit 25 minutes Jose Martin Mena Vascular SurgeryStart: 74-12-7971Esxebatof encounterAbdbalta Henning NephrologyStart: 03-09-2023 End: 69-93-4609lpmuhdbvysXV Shaikh Donaldbooker Work Phone: [facility] Work Phone: Start: 03-09-2023 End: 14-59-4887Ghgqryv encounter procedureMD Shaikh Donaldbooker Work Phone: [facility] [place] Work Phone: Start: 03-05-2023 End: 28-71-6136ixalggdhqaWA Shaikh Donaldbooker Work Phone: [facility] Work Phone: Start: 03-05-2023 End: 73-32-2403Pkixwsx encounter procedureMD Shaikh Donaldbooker Work Phone: [facility]-Ultrasound [facility] [place] Work Phone: Start: 03-04-2023 End: 17-72-6636upnnvxkxmeDU Shaikh Donaldbooker Work Phone: [facility] Work Phone: Start: 03-04-2023 End: 78-72-9457Rjgzsjn encounter procedureMD Shaikh Dotty Work Phone: [facility]-Ultrasound [facility] [place] Work Phone: Start: 02-20-2023 End: 25-00-2072Mptjjbgcq to same day surgery centerMD Shaikh Storm Work Phone: [facility]-Surgery Center Main CampusStart: 02-18-2023 End: 02-59-8512wvocqnkjgxAcdlmx Ruttino Other [facility] cuaQea Other Start: 90-51-4542Gdasmr outpatient new 60 minutes Bonnie Moyer Vascular SurgeryStart: 02-11-2023 End: 75-94-6993Ixrayve encounter procedureJEDANNI JAMES [facility] start: 02-06-2023 End: 51-86-9038ddkommqumrSF Shaikh Dotty Work Phone: [facility] Work Phone: Start: 02-06-2023 End: 86-37-8325Cvkicbyv ReferredMD Shaikh Storm Work Phone: [facility]-Sal-Ndnkxpde Testing Work Phone: Start: 02-06-2023 End: 49-57-2874Pgevebf encounter procedureMD Shaikh Storm Work Phone: [facility] Xer-Lwq-Occwjimq Testing Work Phone: Start: 80-06-8686Dbstmqsmh encounterConstance BROWN Hematology/OncologyComment on above:Social Work ServicesStart: 01-19-2023 End: 66-33-5068Lohijnd encounter procedurePhijessie Genoveva Nichols DO Work Phone: Spine MedicineComment on above:Spinal stenosis, lumbar region with neurogenic claudication (Primary Dx); Foraminal stenosis of lumbar region; Peripheral artery disease (HCC); Prostate cancer (HCC)Start: 77-69-9756Oodqznrnt encounterPhillfloyd Genoveva Nichols DO Work Phone: [phone] InstituteComment on above:Orders; AppointmentStart: 01-09-2023 End: 55-32-3331gkepjcbuaoUF Shaikh Elainegage Work Phone: [facility] Work Phone: Start: 01-09-2023 End: 82-60-6763Flwaazy encounter procedure Shaikh Donaldbooker Work Phone: [facility] [place] Work Phone: Start: 50-11-1670Mwtsxikwy encounterG Jose Nazario MD Work Phone: Radiation OncologyComment on above:OrdersStart: 49-97-4256Mdcgvxqyn encounterMepina Chamberlain RNFV INTERVENTIONAL RADIOLOGYComment on above:Patient Question; AppointmentStart: 12-03-2022 End: 82-70-4676Eefgvyz encounter procedureCLAIRE JAMES [facility] start: 82-49-4676Zecqsgvxo encounterGenoveva Nazario MD Work Phone: Cancer Appts MCComment on above:Referral Information Start: 11-18-2022 End: 38-50-9340unewtnynlcArhym Tani TRISTAN Work Phone: Hematology/OncologyComment on above:Prostate cancer (HCC); Stage 3 chronic kidney disease, unspecified whether stage 3a or 3b CKD (HCC) Start: 11-18-2022 End: 00-22-2780Sflpahq encounter procedureGenoveva Nazario MD Work Phone: Radiation OncologyComment on above:History of prostate cancer (Primary Dx); Spinal arthritis; Spinal stenosis of lumbar region, unspecified whether neurogenic claudication presentStart: 10-28-2022 End: 16-13-9634dgiosimmfzTSGNTX Geri ELAINEWAMELONIEacility:U8Rfzxf: 10-09-2022 End: 76-42-8936fbwluspahmNXOIYCZKTLHI LAKSHMIPATHY .Facility:Q5Ohmgn: 07-15-2022 ambulatoryGEORGE MOUKARBELFacility:M6Wpkje: 48-82-3627Lyjbphvpu encounterLori Ladarius LSWHematology/OncologyComment on above:Social Work ServicesStart: 06-05-2022 End: 78-30-2916Xuljnkt encounter procedureLab/[place] Donnie Jama Work Phone: Radiation OncologyComment on above:Urinary tract infection without hematuria, site unspecified (Primary Dx)Start: 05-15-2022 Telephone encounterG Jose Nazario MD Work Phone: Radiation OncologyComment on above:Results; AppointmentStart: 05-15-2022 End: 47-63-9056ctcyaopgbtJP HOSEA OLIVA .Facility:R8Kamgd: 05-09-2022 End: 90-46-0331kkzeayqkiiCX Shaikh Fawwad Work Phone: [facility] Work Phone: Start: 05-09-2022 End: 08-78-3506Ggnhrah encounter procedureMD Shaikh Storm Work Phone: [facility]-Lab Main CampusStart: 05-27-3071Ftpdwp WorkLori Ladarius BARAJASematology/OncologyStart: 04-23-2022 End: 19-05-1059hurwwccoriVPMireya Storm Work Phone: [facility] Work Phone: Start: 04-23-2022 End: 21-85-8093Nhznbfg encounter procedureMD Shaikh Dotty Work Phone: [facility]-Lab Main CampusStart: 49-65-8370Rvocjwdou Oncology NoteG Jose Nazario MD Work Phone: Radiation OncologyComment on above:Completion Note Start: 04-21-2022 End: 57-82-9069Bwpaqym encounter procedureG Jose Nazario MD Work Phone: Radiation OncologyComment on above:Malignant neoplasm of prostate (HCC) (Primary Dx)Start: 04-14-2022 End: 24-31-2939Ydakjwt encounter procedureGenoveva Nazario MD Work Phone: Radiation OncologyComment on above:Malignant neoplasm of prostate (HCC) (Primary Dx)Start: 04-07-2022 End: 16-66-7728Bmegplh encounter procedureGenoveva Nazario MD Work Phone: Radiation OncologyComment on above:Malignant neoplasm of prostate (HCC) (Primary Dx)Start: 03-31-2022 End: 76-29-6388Laafnf WorkLori Ladarius BROOKSWHematology/OncologyComment on above: Malignant neoplasm of prostate (HCC) (Primary Dx)Start: 03-27-2022 End: 63-94-4129Blqgxpx encounter procedureLab/Bernice Jama Work Phone: Radiation OncologyComment on above:Malignant neoplasm of prostate (HCC)Start: 03-24-2022 End: 32-20-9402Nhzeqzb encounter procedureGenoveva Nazario MD Work Phone: Radiation OncologyComment on above:Malignant neoplasm of prostate (HCC) (Primary Dx)Start: 21-20-4350Cswefojnh encounterGenoveva Nazario MD Work Phone: Radiation OncologyComment on above:OrdersStart: 03-18-2022 End: 52-50-0619Wvzscgl encounter procedureGenoveva Nazario MD Work Phone: Radiation OncologyComment on above:Malignant neoplasm of prostate (HCC) (Primary Dx)Start: 03-13-2022 End: 57-01-2496uxqxdwvofcDG HOSEA S OLIVA .Facility:M4Fydmi: 10-41-7857Gbqdvha encounter procedureGenoveva Nazario MD Work Phone: SANDUSKYStart: 44-06-4999Gedhsduda Oncology NoteG Jose Nazario MD Work Phone: Radiation OncologyComment on above:Treatment Planning Start: 03-12-2022 End: 55-07-8253Xclmnp WorkLori Ladarius LSWHematology/OncologyStart: 03-04-2022 Telephone encounterLori Ladarius LSWHematology/OncologyComment on above:Social Work ServicesStart: 03-03-2022 End: 91-52-9398Yzitvql encounter procedureG Jose Nazario MD Work Phone: Radiation OncologyComment on above:Malignant neoplasm of prostate (HCC) (Primary Dx)Start: 04-54-7863Yzfblypfz encounterG Jose Nazario MD Work Phone: Radiation OncologyComment on above:Patient Update; AppointmentStart: 66-29-9882etniouarlfEfrviokj:25394Pqbcn: 02-13-2022 End: 64-48-8065Rvtimuz encounter procedureZeinab Justice [facility] Start: 02-11-2022 End: 18-62-0026uijgegfllrGQ HOSEA S OLIVA .Facility:P8Emrge: 91-30-0689Vtxjkehau for preprocedural laboratory examinationDR HOSEA S OLIVA .[facility] Start: 55-81-5358Nazxemxdr encounterG Jose Nazario MD Work Phone: Radiation OncologyComment on above:Patient Update Start: 02-07-2022 End: 18-20-0539bzsqvtbwmyTJ HOSEA S OLIVA .Facility:O6Vrdtd: 02-07-2022 End: 16-51-8092Zajjjfrkv for preprocedural laboratory examinationDR HOSEA S OLIVA .Facility:D9Fjmlk: 24-52-1700mzylirkvplWS HOSEA OLIVA .Facility:W6Fztjb: 01-30-2022 End: 97-54-6618xwzyabjprbJHAHY QADIRFacility:R8Itwiw: 01-23-2022 End: 45-59-2456zldgxbonhjHKHI SOLIS .Facility:B4Zejjp: 01-07-2022 End: 95-08-0257avyigqtkupRF HOSEA OLIVA .Facility:S7Oophy: 12-26-2021 End: 55-83-8874zjncljgmiuQFQS SOLIS .Facility:O2Rmnvg: 43-67-7879Qdwfxfoqy encounterG Jose Nazario MD Work Phone: Radiation OncologyComment on above:Patient Update Start: 12-17-2021 End: 98-00-3855vssvqargkjFX HOSEA OLIVA .Facility:R8Xjgjj: 12-12-2021 End: 93-92-0530upwegopveyTOPY SOLIS .Facility:L6Oklhs: 12-10-2021 End: 28-58-1725Qlkaiyc encounter procedureG Jose Nazario MD Work Phone: Radiation OncologyComment on above:Malignant neoplasm of prostate (HCC) (Primary Dx)Start: 11-04-2021 End: 34-05-2842Xsbvurc encounter procedureBarbara JOHNSTON [facility] start: 10-24-2021 End: 58-79-4628iztzfdxffiIakoe Vivian Other Nort cuaQea Other Start: 04-85-6543Ootjtn outpatient new 45 minutesAbdul QadirFPG Nephrology Rene Procedures DateProcedureProcedure DetailPerforming ClinicianStart: 07-39-9841Brpbbgvpbrvxl resection of bladder neoplasmBarbara JOHNSTON Start: 11-09-1144Wc lumbar spine w/o contrast material Generic External Data ProviderStart: 17-05-1867CRDL CBC WITH PLATELET NO DIFFERENTIALGeneric External Data ProviderStart: 96-06-0694DOA PSA SERPL-MCNC Generic External Data ProviderStart: 15-23-7733Toxgan-up visitFollow-upALLISON OVITTStart: 22-56-6412Zijnc cultureZuleykac Bailey MAK Work Phone: Start: 39-78-1862Onpri culturePHYSICIAN NO FAMILY Start: 37-72-7022Mwuzxcvoj on backPatrick Numedeon Start: 14-83-6315Cns routine ecg w/least 12 lds w/i&r Chaim S Kenan [employer] Work Phone: Start: 91-22-5165SBLUVYK STRESS TESTWILLMARKIE GRAYSON Start: 31-78-9343Pt strs tst xers&/or rx cont ecg trcg onlyWillmarkie Grayson [employer] Work Phone: Start: 45-18-8210PCDTENW STRESS TEST EXERCISE (CARD) Generic External Data ProviderStart: 14-15-5497Wua routine ecg w/least 12 lds w/i&rWilliam S Kenan ALBA Work Phone: Start: 15-44-3288Qzoqs brachial pressure indexWI Shaikh Dotty Work Phone: Start: 98-90-8749Lzskv limb angiographyWI Shaikh Dotty Work Phone: Start: 22-31-7277Xwaxn cultureWI Shaikh Dotty Work Phone: Start: 85-34-4820Oxucl volume recorder plethysmography MD Shaikh Storm Work Phone: Start: 60-79-1158Sbtdsvd ultrasonography of bilateral carotid arteriesWI Shaikh Dotty Work Phone: Start: 2569TX pre/post mri xrayMD Shaikh Bennettbooker Work Phone: start: 83-50-3228LH CAT/MRI W/ IV SEDATION (Not Applicable)MD Shaikh Storm Work Phone: Start: 96-94-5523VPM of lumbar spine with contrastMD Shaikh Storm Work Phone: Start: 38-25-5217Tccbv beam external beam radiation therapyCLAIRE JAMES Start: 77-06-3148Pwcxv count complete auto&auto difrntl wbcG Jose Nazario MD Work Phone: Start: 76-77-5176Vysrfodyomkim prostatectomyData Marketplace Start: 84-22-8507Ekcodwszjlf biopsy of prostate using ultrasound guidanceGroupon Start: 14-84-2424Gubvanbiujgsa cystoscopyPaCareers360 Bilateral cataracts (disorder)CLAIRE JAMES ColonoscopyData Marketplace EndarterectomyCLAIRE JAMES Procedure on backGroupon Plan of Treatment DateCare ActivityDetailAuthorStart: 21-25-6081Xmktinwv ScreeningDiabetes ScreeningOhio State University Wexner Medical Centertart: 49-80-5768Rvcnrxxy ScreeningDiabetes Screening [facility] Medical Centertart: 61-54-9829wrindfffhjMamcvsucxgFwlukgcy:EU BellevueStart: 08-30-2025 End: 22-48-1812Pptcgut encounter nifyiiqwk30/01/2026 10:00 AM EDT Office Visit [facility] [address] [place] [id number] Chaim Grayson, [address] [place] [address] [facility] CenterStart: 04-20-2025 End: 33-42-6883Stouxdxk specific Ag [Mass/volume] in Serum or PlasmaPROSTATE- SPECIFIC ANTIGEN DIAGNOSTIC Lab Routine Cancer of prostate w/med recur risk (T2b-c or Nicola 7 or PSA 10-20) (HCC) Expected: 04/20/2025, Expires: 07/20/2025[facility] Work Phone: Comment on above:Expected: 04/20/2025, Expires: 07/20/2025Start: 04-20-2025 End: 63-81-5366Bocnsif encounter yaujtfzsd45/20/2025 9:45 AM EST Office Visit Radiation Oncology [address] [place] [address] Genoveva Nazario MD [address] [place] [address] [place] [address] 3 month follow upRadiation OncologyComment on above:3 month follow upStart: 98-50-2017ZomtawfprUK Healthcare Start: 12-14-2024 End: 37-66-5392Ubabfcak specific Ag [Mass/volume] in Serum or PlasmaPROSTATE- SPECIFIC [facility] Lab Routine Prostate cancer (HCC) Expected: 12/14/2024, Expires: 03/15/2025[facility] Work Phone: Comment on above:Expected: 12/14/2024, Expires: 03/15/2025Start: 12-13-2024 End: 57-44-4773Qorrqen encounter kfnsftenl13/15/2025 1:15 PM EDT Office Visit Radiation Oncology [address] [place] [address] Genoveva Nazario MD [address] [place] [address] 1 yr rvRadiation OncologyComment on above:1 yr rvStart: 07-09-2025Medicare Annual Wellness (AWV)Medicare Annual Wellness (AWV)[facility] HealthcareStart: 12-06-2024 End: 64-78-3561Nduqfay encounter isvsetbgj52/08/2025 1:00 PM EDT Office Visit [facility] Laboratory [address] [place] [address] [facility] LaboratoryComment on above:LabStart: 74-07-5638Xikarhml blood countHemoglobin/HematocritOhio State University Wexner Medical Centertart: 12-57-6037Zlzonelfhq measurementSerum CreatinineSelect [facility]ty [facility] Start: 09-29-2024 End: 47-97-9750Kbtzbjr encounter ovglvtjxm10/01/2025 10:00 AM EDT Office Visit [facility] [address] [place] [address] Nasir Ward, VALENTIN [address] [place] [address] [facility] FMStart: 08-18-2024 End: 10-89-4386Tuvjanz encounter pezamoqrk88/20/2025 10:00 AM EDT Office Visit [facility] [address] [place] [address] Chaim Grayson, [address] [place], [place] [id number] [facility] CenterStart: 87-65-9384Xaqrqaaj identified in Urine by CultureUrine CultureLima Memorial Hospitaltart: 08-10-2024 Urine cultureLima Memorial Hospitaltart: 07-13-2024 End: 91-70-0299Fxrqkpt encounter procedureNOMS CWM FMComment on above:Arrived Start: 55-58-3537Hbmrmujfsi measurementSerum CreatinineOhio State University Wexner Medical Centertart: 08-69-4230Dxtvlsf Directive DiscussionAdvance Directive DiscussionOhio State University Wexner Medical Centertart: 01-01-2025Medicare Advantage Annual Wellness VisitMedicare [facility] Annual Wellness VisitOhio State University Wexner Medical Centertart: 04-21-2024 End: 00-97-4555Uedrltn encounter procedureNOMS CWM FMComment on above:Arrived Start: 72-94-1552Gabwmvxs identified in Urine by CultureLima Memorial Hospitaltart: 07-77-0813Wsidb-19 Vaccine ( season)Covid-19 Vaccine ( season)[facility] Cent[facility]art: 10-35-9816Xrrnnuxds vaccinationInfluenza Vaccine (#1)[facility] Cent[facility]art: 01-20-2024 End: 78-36-3931Ofeefsx encounter lndvyggrw78/21/2024 6:00 PM EDT Office Visit [facility] [address] [place] [place] [address] Nasir Ward, VALENTIN [address] [place] [address] Primary hypertension (CMS/HCC) (Primary Dx); Coronary artery disease involving [place] coronary artery of [place] heart without angina pectoris (CMS/HCC); Stage 3a chronic kidney disease (HCC) (CMS/HCC); Gastroesophageal reflux disease without esophagitisNOMS CWM FMComment on above:Primary hypertension (CMS/HCC) (Primary Dx); Coronary artery disease involving [place] coronary artery of [place] heart without angina pectoris (CMS/HCC); Stage 3a chronic kidney disease (HCC) (CMS/HCC); Gastroesophageal reflux disease without esophagitisStart: 38-78-6741Fbldo brachial pressure indexLima Memorial Hospitaltart: 08-18-2023 End: 35-08-6223Msptcjh encounter /19/2024 11:10 AM EDT Office Visit [address] [place] [address] Chaim Grayson DO [address] [facility] [address] [address] [place], [place] [address] [facility] CenterStart: 07-08-2023 End: 29-28-5808Pmkryuue Ldaovoq3407/08/2023 10:30 AM EST Clinical Support [address] [place] [address] [facility] Start: 06-04-2023 End: 48-85-3446Xgymvdd aminotransferase [Enzymatic activity/volume] in Serum or Plasma by With P-5'-PAlanine Aminotransferase Lab Routine Hypertension, unspecified type Bilateral carotid artery disease, unspecified type (CMS/HCC) Expected: 06/04/2023 (Approximate), Expires: 06/04/2024Un[facility] Work Phone: Comment on above:Expected: 06/04/2023 (Approximate), Expires: 06/04/2024Start: 06-04-2023 End: 87-06-7958Rwlprsvrn aminotransferase [Enzymatic activity/volume] in Serum or Plasma by With P-5'-PAspartate Aminotransferase Lab Routine Hypertension, unspecified type Bilateral carotid artery disease, unspecified type (CMS/HCC) Expected: 06/04/2023 (Approximate), Expires: 06/04/2024UnOhio[facility] Hospital Work Phone: Comment on above:Expected: 06/04/2023 (Approximate), Expires: 06/04/2024Start: 06-04-2023 End: 87-69-3884Cqmsc metabolic 2000 panel - Serum or PlasmaBasic Metabolic Panel Lab Routine Hypertension, unspecified type Mixed hyperlipidemia Expected: 08/2023 (Approximate), Expires: 06/04/2024UnOhio[facility] Hospital Work Phone: Comment on above:Expected: 06/04/2023 (Approximate), Expires: 06/04/2024Start: 06-04-2023 End: 47-03-5558Zmswu 1996 panel - Serum or PlasmaLipid Panel Lab Routine Mixed hyperlipidemia Expected: 06/04/2023 (Approximate), Expires: 06/04/2024[facility] Work Phone: Comment on above:Expected: 06/04/2023 (Approximate), Expires: 06/04/2024Start: 06-04-2023 End: 06-09-8793DB Heart Perfusion W stress and W radionuclide IVNuclear Stress Test Cardiac Nuclear Medicine Routine Hypertension, unspecified type Bilateral carotid artery disease, unspecified type (CMS/HCC) Chest pressure Expected: 06/04/2023 (Approximate), Expires: 06/04/2025[facility] Service Area Work Phone: Comment on above:Expected: 06/04/2023 (Approximate), Expires: 06/04/2025Start: 20-94-0026Efwqkbs Directive DiscussionAdvance Directive DiscussionOhio State University Wexner Medical Centertart: 48-69-2134Dhqzzcdple Health Screening Behavioral Health ScreeningOhio State University Wexner Medical Centertart: 85-03-4157Gbozffvhqm AssessmentDepression AssessmentOhio State University Wexner Medical Centertart: 05-20-2023 End: 99-18-7015Ivmvyvin specific Ag [Mass/volume] in Serum or Plasma PSA/PROSTSPECAG DIAG Lab Routine History of prostate cancer Expected: 05/20/2023, Expires: 07/20/2023[facility] Work Phone: Comment on above:Expected: 05/20/2023, Expires: 07/20/2023Start: 27-95-2351Bfvnuiab blood countHemoglobin/HematocritOhio State University Wexner Medical Centertart: 40-66-7741OOPBPAKRKH/HEMATOCRITHEMOGLOBIN/HEMATOCRITOhio State University Wexner Medical Centertart: 39-50-0603KryqrwkocLima Memorial Hospitaltart: 03-09-2023 Bacteria identified in Urine by CultureLima Memorial Hospitaltart: 96-01-8153Gtzdx volume recorder plethysmographyMetrohealth Parma Medical Center Start: 02-20-2023 End: 44-58-9725UrtscebdhLima Memorial Hospitaltart: 27-04-0932Nodmq-19 Vaccine ( season)Covid-19 Vaccine ( season)[facility] Centertart: 81-64-1814Rlxtfitov vaccinationOhio State University Wexner Medical Centertart: 06-03-2022 End: 20-63-1715Fkgfkjmf identified in Urine by CultureURINE CULTURE Microbiology Routine Hematuria, unspecified type Malignant neoplasm of prostate (HCC) Expected: 06/03/2022 (Approximate), Expires: 08/03/2022[facility] Work Phone: Comment on above:Expected: 06/03/2022 (Approximate), Expires: 08/03/2022Start: 06-03-2022 End: 01-26-3181QT DIP B/OUA DIP B/O Lab Routine Hematuria, unspecified type Malignant neoplasm of prostate (HCC) Expected: 06/03/2022 (Approximate), Expires: 08/03/2022[facility] Work Phone: Comment on above:Expected: 06/03/2022 (Approximate), Expires: 08/03/2022Start: 49-33-0492BXDGUMB DIRECTIVE DISCUSSIONADVANCE DIRECTIVE DISCUSSIONOhio State University Wexner Medical Centertart: 29-52-5624AXBDSJPLBB ASSESSMENT DEPRESSION ASSESSMENTOhio State University Wexner Medical Centertart: 04-21-2022 End: 45-15-3704Yyctwfia specific Ag [Mass/volume] in Serum or Plasma PSA/PROSTSPECAG DIAG Lab Routine Malignant neoplasm of prostate (HCC) Expected: 04/21/2022, Expires: 06/21/2022[facility] Work Phone: Comment on above:Expected: 04/21/2022, Expires: 06/21/2022Start: 03-27-2022 End: 59-80-0291FVE W Auto Differential panel - BloodCBC + DIFF Lab Routine Malignant neoplasm of prostate (HCC) Expected: 03/27/2022, Expires: 03/18/2023 [facility] Work Phone: Comment on above:Expected: 03/27/2022, Expires: 03/18/2023Start: 44-48-7249Tshxldnuk vaccinationINFLUENZA (#1)[facility] Start: 19-40-0946FBXEUTH DIRECTIVE DISCUSSIONADVANCE DIRECTIVE DISCUSSION [facility] Centertart: 90-80-6633UHAHOKNIAP ASSESSMENTDEPRESSION ASSESSMENT [facility]art: 31-24-2131LAZOB-19 VACCINE (3 - Booster for Moderna series)COVID-19 VACCINE (3 - Booster for Moderna series)[facility]: 95-64-4218ZJGVA-19 VACCINE (3 - Booster for Moderna series)COVID-19 VACCINE (3 - Booster for Moderna series)[facility]: 32-40-4290SOVFC-19 VACCINE (3 - Moderna series)COVID-19 VACCINE (3 - Moderna series)[facility]: 09-91-3094NCTNZ-19 VACCINE (4 - Booster)COVID-19 VACCINE (4 - Booster)[facility]: 02-51-4388BBZYT-19 Vaccine (4 - Moderna series)COVID-19 Vaccine (4 - Moderna series)[facility]: 17-71-4180ZJJ High Risk: (Elderly (60+) or Population) (1 - 1-dose 75+ series)RSV High Risk: (Elderly (60+) or Population) (1 - 1-dose 75+ series)[facility]: 57-75-9307KNC Vaccine (1 - 1-dose 75+ series)RSV Vaccine (1 - 1-dose 75+ series)[facility]: 29-84-8618PIV Vaccine (1 - 1-dose 60+ series)RSV Vaccine (1 - 1-dose 60+ series)[facility]: 90-64-0002Lfmmkkozl vaccinationLUNG CANCER SCREENINGOhio State University Wexner Medical Centertart: 94-81-8839Paoxpkxajipn Vaccine: 65+ Years (1 of 1 - PCV)Pneumococcal Vaccine: 65+ Years (1 of 1 - PCV)[facility] CenterStart: 79-55-4658Hfjcnqgis for malignant neoplasm of lungLung Cancer ScreeningOhio State University Wexner Medical Centertart: 14-91-2013ABYUKGKX VACCINE (1 of 2)SHINGRIX VACCINE (1 of 2)[facility] Centertart: 49-23-7609Lduooz Vaccines (1 of 2)Zoster Vaccines (1 of 2)[facility] Start: 02-65-6227INLYMOHS SCREENDIABETES SCREENOhio State University Wexner Medical Centertart: 1990 Diabetes ScreeningDiabetes ScreeningOhio State University Wexner Medical Centertart: 1967 DTaP/Tdap/Td Vaccines (1 - Tdap)DTaP/Tdap/Td Vaccines (1 - Tdap)[facility]: 05-14-4253Eiekeeyivllf vaccinationPneumococcal Vaccine (1 of 2 - PCV)[facility]: 1964 Pneumococcal Vaccine: 50+ (1 of 2 - PCV)Pneumococcal Vaccine: 50+ (1 of 2 - PCV) [facility]: 93-68-6511Llazkfzjumrj Vaccine: 65+ Years (1 of 2 - PCV) Pneumococcal Vaccine: 65+ Years (1 of 2 - PCV)[facility] CenterStart: 1964 Urine microalbumin profileOhio State University Wexner Medical Centertart: 00-92-5716Advih screening for proteinCKD: Urine Protein ScreeningOhioHealth Marion General Hospital: 30-91-4951JUJHDC PCP TEAM CHRONIC DISEASE VISITANNUAL PCP TEAM CHRONIC DISEASE VISITOhio State University Wexner Medical Centertart: 38-51-3644Vvqweeo ScreeningAnxiety Screening [facility]ertart: 64-66-9249Cwrhyqaklg measurementSerum CreatinineOhio State University Wexner Medical Centertart: 53-68-3688Alwskncavi ScreeningDepression ScreeningSelect [facility] Specialty [facility] Start: 97-93-1022OHFMRGOYL C SCREENINGHEPATITIS C SCREENINGSelect [facility] Specialty [facility] Start: 03-24-4531Kflscpobv C screeningHepatitis C ScreeningSelect Medical Specialty [facility] Start: 68-90-8524IBEBI CREATININESERUM CREATININEOhio State University Wexner Medical Centertart: 39-25-7677Bxhlk depression screening assessmentDEPRESSION SCREENINGOhio State University We[facility] Medical Centertart: 10-77-1844Heqjlcxextyo Vaccine: 65+ (1 - PCV)Pneumococcal Vaccine: 65+ (1 - PCV)[facility]: 84-28-7010Unxpvdvlctkq Vaccine: 65+ (1 of 2 - PCV)Pneumococcal Vaccine: 65+ (1 of 2 - PCV)[facility]art: 1951 Pneumococcal Vaccine: 65+ Years (1 - PCV)Pneumococcal Vaccine: 65+ Years (1 - PCV)[facility]: 96-64-5586Mdfbbeqcscrs Vaccine: 65+ Years (1 of 2 - PCV)Pneumococcal Vaccine: 65+ Years (1 of 2 - PCV)[facility] CenterStart: 77-17-0025DHEEAGPXSZYM: 65+ (1 - PCV)PNEUMOCOCCAL: 65+ (1 - PCV)[facility]: 79-49-6041Nmhlf panelLipid PanelOhioHealth Marion General Hospital: 01[birth year]24-1946Medicare Annual Wellness VisitMedicare Annual Wellness Visit (AWV)[facility] HospitalCBC W Auto Differential panel - BloodCBC and differential Lab Routine Stage 3a chronic kidney disease (HCC) ([facility]/HCC) Ordered: 07/13/2024[facility] [employer] Work Phone: Comment on above:Ordered: 07/13/2024omprehensive metabolic 2000 panel - Serum or PlasmaComprehensive metabolic panel Lab Routine Stage 3a chronic kidney disease (HCC) (CMS/HCC) Ordered: 07/13/2024[facility] HealthcareComment on above:Ordered: 07/13/2024T SIM PLANNING RADIATION ONCOLOGY CT SIM PLANNING RADIATION ONCOLOGY Radiology Routine Malignant neoplasm of prostate (HCC) Ordered: 03/03/2022[facility] Work Phone: Comment on above:Ordered: 03/03/2022 End: 40-03-4646Sgb spinal canal lumbar w/o & w/contr matrlMRI LUMBAR SPINE WO/W IVCON Radiology Routine Spinal stenosis of lumbar region, unspecified whether neurogenic claudication present 1 Occurrences starting 11/19/[address] [place] [address] Work Phone: Comment on above:1 Occurrences starting 11/19/2022 until 12/19/2023 End: 31-67-9017Zyz spinal canal lumbar w/o & w/contr matrlMRI LUMBAR SPINE WO/W IVCON Radiology Routine Spinal stenosis of lumbar region without neurogenic cl audication 1 Occurrences starting 11/21/[address] [place] [address] Work Phone: Comment on above:1 Occurrences starting 11/21/2022 until 12/21/2023 End: 59-62-3497Nkt spinal canal lumbar w/o & w/contr matrlMRI LUMBAR SPINE WO/W IVCON Radiology Routine Spinal stenosis of lumbar region, unspecified whether neurogenic claudication present 1 Occurrences starting 01/06/[address] [place] [address] Work Phone: Comment on above:1 Occurrences starting 01/06/2023 until 4[facility] EducationK[facility] Work Phone: Patient referralKettering Health [facility]tr Work Phone: Renal function 2000 panel - Serum or PlasmaFirelands Regional Medical CenterRenal function 2000 panel - Serum or Berger HospitalRenal function 2000 panel - Serum or [facility] [place] Immunizations Immunization DateImmunizationNotesCare XkopxpfpVkwvqunb35-60-7174WYLO-PuL-7 (COVID-19) mRNA-1273 vaccinePaharoldo JOHNSTON [facility] 01-672595-46-3197ZOND-UvV-0 (COVID-19) mRNA-1273 vaccine Barbara JOHNSTON [facility] 01-004079-70-1620IUOXZ-43 mRNA-1273 (Moderna)MD Shaikh Storm Work Phone: [facility] CenterNEGATED: Highlighted row has not occurred!68-99-8597cvmbjyymo virus vaccine, unspecified formulation CLAIRE BRITNI [facility] Payers DatePayer CategoryPayerPolicy [id number] [id number] [id number] 2023Medicare (Managed Care)[id number].10072-38-7489[employer] Insurance1.2.840.663499.1.13.647.2.7.3.323250.315 2022MedicareHUMANA MEDICARE HUMANA GOLD PLUS [id number] 2021-[facility] [phone] [address] [address] [place], [place] [id number] 1.2.840.283456.1.13.159.2.7.3.799745.315 2022Medicare1.2.840.199932.1.13.159.2.7.3.676331.44801-17-6924Njzazmk Health [id number] 2.0.0.835663.52967401-79-1151Mzql-pay [id number] 2.0.1.685152.3.579.2.66633-23-3438Cxtjhqy4164428 2.0.1.001012.3.579.2.00382-15-2303Lqfkjsd5778163 2.0.1.821092.3.579.2.40985-45-7963Bcvuafe9872236 2.840.1.780296.3.579.2.18644-49-1963Zhdnkaj4332106 2.0.1.264617.3.579.2.54554-09-2049Hloizce3894148 2.16840.1.347158.3.579.2.54064-08-6435Ociewtv7572093 2.840.1.610435.3.579.2.31971-96-2968Jjazoyl3526229 2.840.1.198477.3.579.2.38466-21-2520Ntemjbs3491254 2.840.1.490398.3.579.2.67171-17-7880Bjhuyjr1598116 2.16.840.1.976054.3.579.2.95697-13-0316Tvvqgtb8153376 2.16.840.1.947499.3.579.2.63380-21-4202Irihdgg2661746 2.16840.1.455232.3.579.2.96529-97-0269Qndbtqt3916483 2.16840.1.341243.3.579.2.60789-33-4562Phthmtw1912201 2.16840.1.795346.3.579.2.70786-86-3436Gjgomwv8815962 2.16840.1.570167.3.579.2.33825-34-8801Cccdfrw6732205 2.16840.1.689501.3.579.2.892214-87-7447Bnosaqs1877936 2.16840.1.605787.3.579.2.500592-66-9494Pmmnzym3360851 2.16840.1.337830.3.579.2.325472-83-3236Yxcytej4857321 2.16840.1.129010.3.579.2.153726-37-3041Kdygmam9414830 2.16840.1.737217.3.579.2.555780-67-4140Bdlbnhy223430399 2.16840.1.782583.3.579.2.31296-70-5404Cnmskam21360987 2.16840.1.871173.3.579.2.02426-67-9608Onmjtiz79896491 2.16840.1.760189.3.579.2.40641-96-6630Wzdouje66879556 2.16.840.1.216591.3.579.2.86294-54-0629Pcpxaar08975625 2.16840.1.656396.3.579.2.08770-17-6095Cepzrpw10582975 2.16840.1.043409.3.579.2.64051-20-9295Lrtfhqt86091507 2.16840.1.344509.3.579.2.21758-57-9948Qeuttrt66783363 2.16840.1.750958.3.579.2.73696-39-9819Rpntjqj6801222 2.16840.1.592693.3.579.2.431099-04-4141Wyttsew7728018 2.840.1.479115.3.579.2.742221-74-8007Ifwswui4684047 2.16840.1.612838.3.579.2.976413-74-4738Bmngatk0140800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 artery of [place] heart without angina pectoris (CMS/HCC)- Primary Stage 3a chronic kidney disease (HCC) ([facility]/HCC) Lumbar stenosis with neurogenic claudication Primary hypertension ([facility]/HCC)- Primary Unspecified essential hypertension Coronary artery disease involving [place] coronary artery of [place] heart without angina pectoris (CMS/HCC) Stage 3a chronic kidney disease (HCC) ([facility]/HCC) Gastroesophageal reflux disease without esophagitis Esophageal reflux Tobacco abuse Tobacco use disorder Prostate cancer ([facility]/HCC) Malignant neoplasm of prostate Benign prostatic hyperplasia with lower urinary tract symptoms, symptom details unspecified Mixed hyperlipidemia ([facility]/HCC)- Primary Mixed hyperlipidemia Primary hypertension ([facility]/HCC) Unspecified essential hypertension Stage 3a chronic kidney disease (HCC) ([facility]/HCC) Stage 3a chronic kidney disease (HCC) ([facility]/HCC)- Primary Lumbar stenosis with neurogenic claudication Mixed hyperlipidemia (CMS/HCC) Mixed hyperlipidemia Primary hypertension (CMS/HCC) Unspecified essential hypertension documented in this encounter [facility] [id number] History of Present illness Narrative* Nasir Ward [...] 04/21/2024 11:42 AM ESTAssociated Problem(s): HLD (hyperlipidemia) ([facility]/HCC) Currently taking Prvastatin 40mg Denies any myalgias. [...] CHOLESTEROL mg/dL 16 CHOL/HDL RATIO <5.0 3.6 [facility] CKD: Follows with Nephrology. Avoid nephrotoxic agents. Monitor closely. Following with Pain Management for Lumbar Stenosis. Recently had surgery. Pt reports he recently had blood work done in January- nothing new in [facility]. Will request labs from Dr. Thakkar. [...] Denies any myalgias. Continue current regimen. Hypertension ([facility]/HCC) Currently taking amlodipine, valsartan. Follows with Cardiology Does not check BP at home; Denies orthostatic changes, dizziness, cough, shortness of breath, swelling in extremities. Continue current regimen. Given BP log, advised pt to record BP and bring log back with them to next visit. Stage 3 chronic kidney disease (HCC) (CMS/HCC) Follows with Nephrology. Avoid nephrotoxic agents. Monitor closely. documented in this encounterSSM DePaul Health CenterIfwmdiuria02-06-7061 Hospital Discharge instructions Patient Education 04/18/2024 12:09:27 [...] Treatment for this condition includes: Antibiotic medicine. Axbs-ljp-cjvbirk medicines to treat discomfort. Drinking enough water [...] Follow these instructions at home: Medicines Take chpi-aem-jyolzmq and prescription medicines only as told by [...] provider. Document Revised: 12/23/2020 Document Reviewed: 12/28/2020 [employer] Patient Education 2023 [employer]. Follow Up Care 09/18/2023 12:00:10 With:PRESTON MAK, Barbara Warner, URL Address: [facility] [address] [place] [address]- [phone] When: Unknown Comments:1 yr w/ PSA [facility] 11-18-2024 NotePatient Education Obstetrics and [...] this condition includes: ??? Antibiotic medicine. ??? Zjpn-hvb-htmebdd medicines to treat discomfort. ??? Drinking enough [...] these instructions at home: Medicines ??? Take btca-qyi-rqjcqtd and prescription medicines only as told by [...] Make sure you di (more content not included)...[facility]09-19-2024 Telephone encounter Note* Telephone Encounter - Sugar Wellington MA - 02/18/2024 9:49 AM EDT [facility]ill [facility] from [facility] [id number] Miscellaneous Notes* Telephone Encounter - Sugar Wellington MA - 02/18/2024 9:49 AM EDT Refill request from [facility] - documented in this encounterSSM [facility] CenterYdwfxawoju96-11-0129 Telephone encounter Note* Telephone Encounter - Sugar Wellington MA - 02/02/2024 11:29 AM EDT PT INTO OFFICE AND SAID ALL OTHER RXS WERE SENT IN FOR 90 DAY SUPPLIES BUT AMLODIPINE WASN'T SENT IN? CAN YOU SEND IN A DAY BEFORE THURSDAY THEY ARE LEAVING OUT OF STATE FOR THREE MONTHS. -SCR [facility] CenterFhsgkrsjdf34-12-8925 Miscellaneous Notes* Telephone Encounter - Sugar Wellington MA - 02/02/2024 11:29 AM EDT PT INTO OFFICE AND SAID ALL OTHER RXS WERE SENT IN FOR 90 DAY SUPPLIES BUT AMLODIPINE WASN'T SENT IN? CAN YOU SEND IN A BEFORE THURSDAY THEY ARE LEAVING OUT OF STATE FOR THREE MONTHS. -SCR documented in this encounterSSM DePaul Health [id number] History of Present illness Narrative* Nasir Ward [...] Problem(s): Stage 3 chronic kidney disease (HCC) ([facility]/HCC) Follows Nephrology Dr. Thakkar CKD stage 3. Continue to monitor and avoid nephrotoxic agents. * Nasir Ward NP - 01/20/2024 6:42 PM EDTAssociated Problem(s): Coronary artery disease involving [place] coronary artery of [place] heart with out angina pectoris (CMS/HCC) Follows [...] avoid nephrotoxic agents. Coronary artery disease involving [place] coronary artery of [place] heart without angina pectoris (CMS/HCC) Follows Cardiology [...] very well. Denies complaints. documented in this encounterSSM DePaul Health [id number] Instructions* Patient Instructions* Nasir Ward NP - 01/20/2024 6:00 PM EDT Referral sent to Dr. Bryant- Urology; They will call you! Call if you need anything! documented in this encounterSSM DePaul Health [id number] Evaluation note* Diagnosis Prostate cancer (HCC)- Primary Malignant neoplasm of prostate Stage 3 chronic kidney disease, unspecified whether stage 3a or 3b CKD (HCC) documented in this encounter [facility]07-16-2024 Nurse Note* Diane Parada LPN - 12/15/2023 2:36 PM EDT AUA= 13 [facility]07-16-2024 Nurse Note* Diane Parada LPN - 12/15/2023 2:36 PM EDT AUA= 13 documented in this encounterSelect Medical [facility]07-[facility]-2024 History of Present illness Narrative* Genoveva Nazario MD - 12/15/2023 2:30 PM EDT Radiation Oncology - Follow Up Note PATIENT NAME: Yesenia Broussard PATIENT DIAGNOSIS: Prostate adenocarcinoma, initial PSA 9.95, biopsy Union score 3 + 4 = 7 (grade [...] Genoveva Nazario MD cc: Shaikh Dotty [address] [place] [address] documented in this encounterSelect Medical [facility]04-[facility]24 Hospital Discharge instructions Patient Education 09/18/2023 11:40:21 [...] to keep your urine pale yellow. ?Take aoqs-oyw-utieofp or prescription medicines. ?Eat foods that are high in fiber, such as beans, whole grains, and fresh fruits and vegetables. ?Limit foods that are high in fat and processed sugars, such as fried or sweet foods. General instructions Take qxpt-lay-izqloct and prescription medicines only as told by [...] the muscles that help control urination. Take pnyg-lny-dahumor and prescription medicines only as told by your health care provider. Contact a health care provider if your symptoms do not improve or get worse. This information is not intended to replace advice given to you by your health care provider. Make sure you discuss any questions you have with your health care provider. Document Revised: 12/21/2020 Document Reviewed: 12/21/2020 [employer] Patient Education 2022 [employer]. Follow Up Care 07/07/2023 09:49:12 With:PRESTON MAK, Barbara Warner, URL Address: [address] [place], [place] [id number]- When: Unknown [facility] 03-19-2024 History of Present illness Narrative* Chaim [...] his history are noted for prior inferior VT with revascularization of the RCA in [place] followed by bilateral carotid endarterectomies. More [...] normal. Judgment: Judgment normal. Allergies Ezetimibe and Srxoqlc-uvp-zpa reductase inhibitors Current Medications Current Outpatient Medications: [...] , Rfl: ergocalciferol (Vitamin D-2) 1.25 MG (68981 UT) capsule, Take 1 capsule (1,250 mcg) by mouth 1 (one) time per week., Disp: , Rfl: gabapentin (Neurontin) 100 mg capsule, Take 1 capsule (100 mg) by mouth 2 times a day., Disp: , Rfl: HYDROcodone-acetaminophen (Brewster) 7.5-325 mg tablet, Take 1 tablet by [...] Follow Up In Cardiology 4. History of VT (myocardial infarction) 5. BMI 28.0-28.9,adult 6. ASHD (arteriosclerotic heart disease) 7. PVD (peripheral vascular disease) ([facility]) 8. Smoker 9. Chest pain, unspecified type [...] exam, discussion and plan. documented in this encounterHolzer Hospital Work Phone: 1(760) 255-770703-19-2024 Instructions* Patient Instructions* Shahla Foster MA - [...] time of your visit. documented in this encounterHolzer Hospital Work Phone: 1(491) 684-747301-14-2024 NoteHNO ID: [id number] Author: KODI REYNOLDS MD Service: ? Author [...] pleasant 77-year-old male who recently moved from [place] to [place]. He reports longstanding history of back and [...] 0 0 0 PHQ- (more content not included)...Wilson [id number] History of Present illness Narrative* Kodi Reynolds [...] pleasant 77-year-old male who recently moved from [place] to [place]. He reports longstanding history of back and [...] BICEPS TRICEPS DELTS Wrist Ext Wrist Flex Vamp Seamer HI R 5 5 5 5 5 [...] heat Medications: See medication reconciliation list in [facility] MEDICATIONS: Hydrocodone, Gabapentin 2018 back surgery with a 50-70% relieve PT done 2021 How is your appetite?: normal Do you feel safe in the home? Yes Do you have concerns about falling or have you fallen in the past year? No Do you have difficulty performing or completing routine daily living activities? No Bert Harper documented in this encounterCleveland Uatbjx23-10-1999 NoteHNO ID: [id number] Author: ?, ?, ? Service: ? Author [...] heat Medications: See medication reconciliation list in [facility] MEDICATIONS: Hydrocodone, Gabapentin 2017 back surgery with a 50-70% relieve PT done 2021 How is your appetite?: normal Do you feel safe in the home? Yes Do you have concerns about falling or have you fallen in the past year? No Do you have difficulty performing or completing routine daily living activities? No [facility]01-04-2024 History of Present illness Narrative * Chaim Grayson, DO - 06/04/2023 9:50 AM EST Cardiology Consultation- New Consult Reason for referral: 77-year-old gentleman seen in cardiology consultation at the request of primary care physician Dr. Storm, for further evaluation regarding chest discomfort. Patient moved from [place] to the local area approximately 2 years ago. He has a history of previous inferior VT in the mid with revascularization of the RCA in [place] followed by stroke with subsequent bilateral [...] ischemia given his risk factors and previous VT and revascularization on follow-up thereafterwards HPI: Yesenia Renteria is a 77 y.o. male Past Medical History: He has a past medical history of Abnormal ECG (05-20-2023), Cancer ([facility]) (07/07/2021), Chronic kidney disease, Coronary artery disease, Hypertension, Myocardial infarction ([facility]/HCC) (10/30/1996), and Stroke ([facility]) (01/31/12). Surgical History: He has a past [...] Alcohol use: Not Currently Allergies: Ezetimibe and Tmbgwus-ktj-qjd reductase inhibitors Current Medications: Current Outpatient Medications: [...] , Rfl: ergocalciferol (Vitamin D-2) 1.25 MG (93213 UT) capsule, Take 1 capsule (1,250 mcg) by mouth 1 (one) time per week., Disp: , Rfl: HYDROcodone-acetaminophen (Brewster) 7.5-325 mg tablet, Take 1 tablet by [...] of Kaya Grayson DO. documented in this [facility] Work Phone: 1(145) 309-870001-04-2024 Instructions* Patient Instructions* Yunier Mathur MA - [...] time of your visit. documented in this encounterHolzer Hospital Work Phone: 1(339) 452-237901-04-2024 Evaluation note* Diagnosis Hypertension, unspecified type Stage 3 chronic kidney disease, unspecified whether stage 3a or 3b CKD (CMS/HCC) Mixed hyperlipidemia Bilateral carotid artery disease, unspecified type (CMS/HCC) Smoker Tobacco use disorder Chest pressure Other chest pain documented in this encounter [facility] Work Phone: 1(587) 334-632012-20-2023 Miscellaneous Notes* Telephone Encounter - Claire Koroma - 05/20/2023 9:14 AM EST Margaret- records were not sent, so we shouldn't have to call and cancel. * Telephone Encounter - Diane Parada LPN - 05/20/2023 9:08 AM EST Mrs. Broussard called stating they contacted one of Dexter's previous physicians at [facility] spine clinic and he will arrange for Dexter to see [facility] neurosurgeon. Please cancel the referral to [facility] neurosurgeon perpatient request. Diane Parada RN * Telephone Encounter - Margaret Castle - 05/19/2023 2:11 PM EST Neelam when order is signed can you please send records to Dr Marvin at [facility] thank you! Facesheet in your box documented in this encounterSelect [facility]23 Miscellaneous Notes* Telephone Encounter - Julianna Yuan RN - 05/19/2023 10:45 AM EST Patient is requesting referral to Surgeon. He looks like had MRI of Lumbar spine on 02/20/2023 but no images in system. We do have report. documented in this encounterSelect Medical [facility]11-21-2023 Hospital Discharge instructions Patient Education 04/21/2023 09:12:49 [...] Follow these instructions at home: Medicines Take itvr-wot-zvksqat and prescription medicines only as told by [...] provider. Document Revised: 08/14/2021 Document Reviewed: 08/14/2021 BioAtlantis Patient Education 2022 [employer]. Follow Up Care 02/11/2023 15:24:55 With:BRITNI ENCINAS CLAIRE Elbert, URL Address: [address] [place] [address] [phone] When: Unknown [facility] 11-16-2023 Evaluation note* Encounter Date Diagnosis [...] in 6 months with repeat surveillance ABIs. [facility] Other 10-23-20[facility]* Encounter Date Diagnosis [...] will schedule this in the near future. [facility] Other 09-20-2023 Evaluation note* Encounter Date Diagnosis [...] once again all his questions were addressed. [facility] Other 09-13-2023 Hospital Discharge instructions Patient Education [...] urethra. Follow these instructions at home: Take nlnr-hwk-nzmkycy and prescription medicines only as told by [...] provider. Document Revised: 12/04/2021 Document Reviewed: 12/04/2021 [employer] Patient Education 2022 [employer]. Follow Up Care 01/05/2023 13:14:43 With:CLAIRE JAMES PA-C, URL Address: [address] [place] [address] When:Within 8 Week(s) [facility] 08-22-2023 Miscellaneous Notes* Telephone Encounter [...] Team tab: Yes Patient appears on the [facility] SW Report for a PHQ-9 score of [...] as appropriate. JENNIE Lange documented in this encounterSelect [facility]-21-2023 History of Present illness Narrative* [employer] Jose GenovevaDO - 01/19/2023 12:49 PM EDT Images from the original note were not included. [facility] - Medical [...] lumbar decompression and partial discectomy L4-5 [place] . Now follows with Pain Management in [place], [place]. Received opinion from his son's spine surgeon Dr. Farias [place]. After review of imaging he was offered L4-S1 ALIF with posterior L4-S1 robotic assisted fusion. Since they do not live in [place] he was recommended to seek consultation at [facility]. Pain is located midline and bilateral [...] interventions: -Lumbar procedures with [facility] Management [facility] Dr. Oliva. -RFA ordered following MBB #2 01/07/22 BL L2, L3, L4, L5 MBB - 95% relief same day 12/17/21 BL L2, L3, L4, L5 MBB - 90% relief x 1 hour, then 50% for a few hours -Lumbar injections in [place] prior to surgery. Had at least a few injections, including RFA, LESI, SIJ, he remembers one of the injections helping. Prior spine surgery: L4-5 Previously treated by: -Pain Management at [facility] in [place], [place], Dr. Barbara Farias on 07/07/22 virtual [...] See below Social: Home life: Moved to [place] 2020. Litigation: No Workers' Compensation: No YELLOW [...] [facility] The bones of the lumbar spine [...] L5 nerve root. 11/26/21 [facility] Bones: No suspicious bony lesion. Normal [...] 2023 TIME: 12:50 PM documented in this encounterSelect Medical [facility]08-18-2023 Miscellaneous Notes* Telephone Encounter - Julianna Yuan RN - 01/16/2023 8:13 AM EDT Left message on voicemail for patient to call office back or to read [employer] message. * Telephone Encounter - Julianna Yuan [...] calling: self Call patient at: at home [phone] (home) [phone] (cell) Was an appointment scheduled: No Closing statement: Results or non-symptom based questions: Thank you for calling [facility], your call will be returned within the next business day. Paul Cat documented in this encounterSelect Medical Specialty [facility]08-08-2023 Miscellaneous Notes* Telephone Encounter - Livier Barrera RN - 01/06/2023 8:13 AM EDT Please sign pended new order for Lumbar Spine MRI as it needs to state that it needs to be done with anesthesia. Thank you Livier Barrera RN documented in this encounterSelect Medical [facility]ty [facility]08-07-2023 Miscellaneous Notes* Telephone Encounter - Evelyn Chamberlain RN - 01/05/2023 4:52 PM EDT Spoke to patient's . Explained differences between anxiolysis and full anesthesia. Per patient's , patient needs full anesthesia-will not tolerate procedure with anxiolysis alone. Communicated to office that new order needs to be placed for MRI with anesthesia, and [facility]. documented in this encounterSelect Medical Specialty [facility]07-05-2023 Hospital Discharge instructions Patient Education 12/03/2022 15:36:37 [...] to keep your urine pale yellow. ?Take pvhc-kcf-apviuvm or prescription medicines. ?Eat foods that are high in fiber, such as beans, whole grains, and fresh fruits and vegetables. ?Limit foods that are high in fat and processed sugars, such as fried or sweet foods. General instructions Take jrfx-aty-yusslhy and prescription medicines only as told by [...] the muscles that help control urination. Take qwdi-ojn-peseqsc and prescription medicines only as told by your health care provider. Contact a health care provider if your symptoms do not improve or get worse. This information is not intended to replace advice given to you by your health care provider. Make sure you discuss any questions you have with your health care provider. Document Revised: 12/21/2020 Document Reviewed: 12/21/2020 [employer] Patient Education 2022 [employer]. Follow Up Care 10/28/2022 10:11:31 With:BRITNI ENCINAS, CLAIRE Boswell, URL Address: [address] [place] [address] When:Within 5 Week(s) [facility] 06-23-2023 Miscellaneous Notes* Telephone Encounter [...] completed. This can only be completed at [facility] Main & orders must be revised to reflect such. Thanks, Kadi Cotton * Telephone Encounter - Kadi Cotton - 11/18/2022 2:17 PM EDT Per [facility] Neurosurgery, a more recent MRI is required before scheduling the patient to be seen. They are requesting new MRI orders to be placed before completing consult. Kadi Cotton documented in this encounterSelect Medical Specialty [facility]06-21-2023 History of Present illness Narrative* Elizabeth Freire APRN.MORTGAGE SPECIALIST - 11/19/2022 12:22 PM EDT Yesenia Broussard [...] cancer. Elizabeth Freire APRN.GILBERTO documented in this encounterSelect Medical Specialty [facility]06-21-2023 Evaluation note* Diagnosis Prostate cancer (HCC) Malignant neoplasm of prostate Stage 3 chronic kidney disease, unspecified whether stage 3a or 3b CKD (HCC) documented in this encounter [facility]06-20-2023 Nurse Note* Nadja Guardado - 11/18/2022 2:34 PM EDT Clinical questionnaires incomplete due to Patient was roomed by provider documented in this encounterSelect Medical Specialty Hospital [facility]06-20-2023 Nurse Note* Livier Barrera RN - 11/18/2022 1:32 PM EDT AUA 21 Livier Barrera RN documented in this encounterSelect Medical Specialty [facility]06-20-2023 History of Present illness Narrative* Genoveva Nazario [...] MD cc: Shaikh Dotty [address] [place] [address] documented in this encounterSelect Medical [facility]01-06-2023 Miscellaneous Notes* Telephone Encounter - STEPHANIE Lange [...] call back. JENNIE Lange documented in this encounterSelect Medical [facility]01-05-2023 Nurse Note* Kelly Hector - 06/05/2022 12:40 PM EST Back office UA test performed. Results entered in [facility] and doctor notified. Kelly Hector MA documented in this encounterSelect Medical Specialty [facility]12-15-2022 Miscellaneous Notes* Telephone Encounter - Diane Parada LPN - 05/15/2022 1:51 PM EST Nena, pt's , notified to have Dexter complete the Cipro prescription and have urine rechecked in 2-3 weeks. Call transferred to [facility] to schedule lab appt. Dr. Nazario, please sign pended lab orders. Diane Parada LPN documented in this encounterSelect Medical Specialty [facility]12-15-2022 NoteCONSULTATION CONSULTATION DATE: 05/15/2022 HISTORY OF PRESENT [...] he has a son who lives in [place] with the same symptoms and gained relief after seeing a specialist and having surgery. Medications include Lyrica 75 mg t.i.d., Brewster 5/325 t.i.d. and baclofen 10 mg q.h.s. [...] are going to spend three months in [place] with his son in early July and he wishes to see the specialist out there. I told him we would continue to medically manage him, which he does agree to. Patient will call the office for an appointment upon return from [place].[facility] HospitalUxksyyrh17-15-0301 History of Present illness Narrative* STEPHANIE Lange - 04/30/2022 3:01 PM EST SOCIAL WORK FOLLOW UP NOTE: [facility] Date of service:04/30/22 TOPICS ADDRESSED: community resources PLAN: Continue follow up as needed Assigned SW listed in Care Team tab: Yes SW completed and faxed a mileage reimbursement log to [facility] for the month of April 2022. JENNIE Lange documented in this encounterSelect Medical Specialty [facility]11-23-2022 History of Present illness Narrative* Genoveva Nazario MD - 04/23/2022 12:00 AM EST [facility] Radiation Oncology Department RADIATION ONCOLOGY - COMPLETION NOTE PATIENT: YESENIA BROUSSARD: 1945 DATES OF TREATMENT: 03/18/2022- 04/23/2022 DIAGNOSIS: Prostate adenocarcinoma, initial PSA 9.95, biopsy Union score 3 + 4 = 7 (grade [...] / WST :35 PM documented in this encounterSelect Medical Specialty Hospital [facility]11-21-2022 History of Present illness Narrative* Genoveva Nazario MD - 04/21/2022 3:23 PM EST genoveva Radiation Oncology - On Treatment Review (OTR) Note PATIENT NAME: Yesenia Broussard PATIENT DIAGNOSIS: Prostate adenocarcinoma, initial PSA 9.95, biopsy Union score 3 + 4 = 7 (grade [...] treatment. Genoveva Nazario MD documented in this encounterSelect Medical Specialty [facility]11-14-2022 History of Present illness Narrative* Genoveva Nazario [...] outlined. Genoveva Nazario MD documented in this encounterSelect Medical [facility]11-07-2022 History of Present illness Narrative* Genoveva Nazario MD - 04/07/2022 11:03 AM EST Radiation Oncology - On Treatment Review (OTR) Note PATIENT NAME: Yesenia Broussard PATIENT DIAGNOSIS: Prostate adenocarcinoma, initial PSA 9.95, biopsy Union score 3 + 4 = 7 (grade [...] outlined. Genoveva Nazario MD documented in this encounterSelect Medical [facility]ty [facility]10-31-2022 History of Present illness Narrative* Genoveva Nazario MD - 03/31/2022 3:29 PM EDT Radiation Oncology - On Treatment Review (OTR) Note PATIENT NAME: Yesenia Broussard PATIENT DIAGNOSIS: Prostate adenocarcinoma, initial PSA 9.95, biopsy Union score 3 + 4 = 7 (grade [...] outlined. Genoveva Nazario MD documented in this encounterSelect Medical Specialty [facility]10-31-2022 History of Present illness Narrative* STEPHANIE Lange [...] March 2022. JENNIE Lange documented in this encounterSelect Medical Specialty [facility]10-27-2022 Nurse Note* Livier Barrera RN - 03/27/2022 [...] assist. Livier Barrera RN documented in this encounterSelect Medical Specialty [facility]10-24-2022 History of Present illness Narrative* G Jose Nazario MD - 03/24/2022 4:00 PM EDT Radiation Oncology - On Treatment Review (OTR) Note PATIENT NAME: Yesenia Broussard PATIENT DIAGNOSIS: Prostate adenocarcinoma, initial PSA 9.95, biopsy Union score 3 + 4 = 7 (grade [...] outlined. Genoveva Nazario MD documented in this encounterSelect Medical [facility]10-18-2022 History of Present illness Narrative* Genoveva Nazario MD - 03/18/2022 3:58 PM EDT Radiation Oncology - On Treatment Review (OTR) Note PATIENT NAME: Yesenia Broussard PATIENT DIAGNOSIS: Prostate adenocarcinoma, initial PSA 9.95, biopsy Union score 3 + 4 = 7 (grade [...] prescribed. Genoveva Nazario MD documented in this encounterSelect Medical Specialty [facility]10-18-2022 Miscellaneous Notes* Telephone Encounter - Diane Parada LPN - 03/18/2022 8:31 AM EDT CBC order the second week during radiation is pending your approval. Diane Parada LPN documented in this encounterSelect Medical Specialty [facility]10-13-2022 NoteCONSULTATION PROCEDURE DATE: 03/13/2022 PREOPERATIVE DIAGNOSIS: Bilateral [...] procedure well with no overt complications.[facility] HospitalHsjelvfs54-68-0757 NoteCONSULTATION CONSULTATION DATE: 03/13/2022 HISTORY OF PRESENT [...] current medications include Lyrica 75 mg t.i.d., Brewster 5/325 t.i. d., baclofen 10 mg q.h.s. [...] will return in six weeks' time.[facility] HospitalFeewsvfl10-26-9234 History of Present illness Narrative* STEPHANIE Lange [...] as appropriate. JENNIE Lange documented in this encounterSelect Medical [facility]10-12-2022 History of Present illness Narrative* Genoveva Nazario MD - 03/12/2022 12:00 AM EDT YESENIA BROUSSARD [id number] 03/12/[address] [facility] Department of Radiation Oncology Treatment Planning [...] Nazario M.D. 21:57 PM documented in this encounterSelect Medical Specialty Hospital [facility]10-04-2022 Miscellaneous Notes* Telephone Encounter - STEPHANIE Lange [...] as appropriate. JENNIE Lange documented in this encounterSelect Medical Specialty [facility]10-03-2022 History of Present illness Narrative* Genoveva Nazario MD - 03/03/2022 10:42 AM EDT Unable to complete simulation due to anxiety related to claustrophobia. Prescription for Valium given. We will reschedule. documented in this encounterSelect Medical [facility] Miscellaneous Notes* Telephone Encounter - Margaret Mcpherson [...] Thanks Diane Parada LPN documented [facility] [place] Miscellaneous Notes* Telephone Encounter - Livier Cook [...] Thanks Maddy Waite MA documented in [facility] [place]22 NoteCONSULTATION CONSULTATION DATE: 01/23/2022 HISTORY OF PRESENT [...] well enough that [place] [employer] [place]. Sitting on [...] ice. Medications include baclofen 10 mg q.h.s., Brewster 5/325 t.i.d., Lyrica 75 mg b.i.d. Patient's [...] followed up in the clinic post procedure.[facility] [place] [address]-01-2022 Miscellaneous Notes* Telephone Encounter - Diane Parada [...] advise. Diane Parada LPN documented in this encounterSelect [facility] [place]22 NoteCONSULTATION CONSULTATION DATE: 12/26/2021 HISTORY OF PRESENT [...] His medications include baclofen 10 mg q.h.s., Brewster 5/325 t.i.d. and Lyrica 50 mg b.i.d. [...] he is in agreement to this.[facility] Nurse Note* Diane Parada LPN - 12/10/2021 9:20 AM EDT AUA= 10 documented in this encounterSelect [facility] [place] History of Present illness Narrative* Genoveva Nazario MD - 12/10/2021 9:00 AM EDT Radiation Oncology - Prostate Cancer New Patient/Consult Note PATIENT NAME: Yesenia Broussard PATIENT REQUESTING PROVIDER: Dr. Johnston DIAGNOSIS: 76 year old male with prostate adenocarcinoma, initial PSA 9.95, biopsy Union score 3 + 4 = 7 (grade [...] underwent TURP on 06/06/2021. Pathology demonstrating adenocarcinoma, Union 7 (3+4), involving 21 to 30% of submitted tissue. No evidence of intraductal component, or LVI. 6 to 10% percentage of Union pattern 4 Repeat PSA 11/04/2021 3.73. MRI [...] ASSESSMENT/PLAN: Prostate adenocarcinoma, initial PSA 9.95, biopsy Union score 3 + 4 = 7 (grade [...] MD cc: Shaikh Dotty [address] [address] Barbara Johnston [address] [place] [address] documented in this encounterSelect [facility] [place] Evaluation + Plan note Diagnostic Tests Pending * PSA Total 11/04/21 [facility] 06-06-2022 Hospital Discharge instructions Patient Education [...] 05/18/2006 Document Revised: 02/04/2019 Document Reviewed: 04/17/2017 [employer] Patient Education 2020 [employer]. 11/04/2021 10:39:39 Benign Prostatic Hyperplasia Benign Prostatic [...] urethra. Follow these instructions at home: Take oyyw-hrb-kuxatpe and prescription medicines only as told by [...] 05/18/2006 Document Revised: 04/12/2019 Document Reviewed: 06/22/2017 [employer] Patient Education 2020 [employer]. 11/04/2021 10:39:34 Prostate Cancer Prostate Cancer The [...] who: Are older than age 65. Are -[place]. Are obese. Have a family history of [...] cells. Follow these instructions at home: Take zobv-owh-zcxzkna and prescription medicines only as told by [...] 05/18/2006 Document Revised: 04/30/2018 Document Reviewed: 01/26/2017 [employer] Patient Education 2020 [employer]. Follow Up Care 07/01/2021 09:43:21 With:PRESTON MAK, Barbara Warner, URL Address: [facility] [address] , [place] [address] [phone] When: Unknown Comments:Will schedule MRI of prostate w/wo and Perineal prostate biopsy. [facility] 05-26-2022 Evaluation note* Encounter Date [...] statins. Monitor LFTs and lipid profile periodically. [facility] Other Evaluation + Plan note Future Appointments Appointment Date:01/06/2023 09:15:00 AM Scheduled Provider:CLAIRE JAMES PA-C Location:[facility] Appointment Type:URO Office Visit [facility] evaluation + Plan note Future Appointments Appointment Date:04/21/2023 08:30:00 AM Scheduled Provider:CLAIRE JAMES PA-C Location:[facility] Appointment Type:URO Office Visit [facility] evaluation + Plan note Future Appointments Appointment Date:07/07/2023 09:00:00 AM Scheduled Provider:CLAIRE JAMES PA-C Location:[facility] Appointment Type:URO Office Visit Diagnostic Tests Pending * Electrolyte Panel 04/21/23 [facility] evaluation + Plan note Future Appointments Appointment Date:07/07/2023 09:00:00 AM Scheduled Provider:CLAIRE JAMES PA-C Location:[facility] Appointment Type:URO Office Visit Diagnostic Tests Pending * Urine [facility] Future Appointments Appointment Date:04/01/2024 10:45:00 AM Scheduled Provider:Barbara JOHNSTON MD Location:[facility] Appointment Type:URO Office Visit Diagnostic Tests Pending * PSA Total 12/31/23 [facility] evaluation + Plan note Future Appointments Appointment Date:04/18/2024 12:45:00 PM Scheduled Provider:Barbara JOHNSTON MD Location:[facility] Appointment Type:URO Office Visit Diagnostic Tests Pending * Urine Culture 04/07/24 [facility] evaluation + Plan note Future Appointments Appointment Date:04/18/2024 12:45:00 PM Scheduled Provider:Barbara JOHNSTON MD Location:[facility] Appointment Type:URO Office Visit [facility] evaluation + Plan note Future Appointments Appointment Date:04/21/2025 10:15:00 AM Scheduled Provider:Barbara JOHNSTON MD Location:[facility] Appointment Type:URO Office Visit Diagnostic Tests Pending * PSA Total 04/18/24 [facility] evaluation + Plan note Future Appointments Appointment Date:04/21/2025 10:15:00 AM Scheduled Provider:Barbara JOHNSTON MD Location:[facility] Appointment Type:URO Office Visit Diagnostic Tests Pending * Urine Culture 08/08/24 [facility] evaluation + Plan note Future Appointments Appointment Date:04/21/2025 10:15:00 AM Scheduled Provider:Barbara JOHNSTON MD Location:[facility]ue Appointment Type:URO Office Visit Diagnostic Tests Pending * Urine Culture 08/22/24 [facility] Evaluation + Plan note Future Appointments Appointment Date:04/21/2025 10:15:00 AM Scheduled Provider:Barbara JOHNSTON MD Location:[facility]]ue Appointment Type:URO Office Visit Diagnostic Tests Pending * Urine Cytology ([facility]) 08/29/24 [facility]* Diagnosis Malignant neoplasm of prostate (HCC)- Primary Malignant neoplasm of prostate [facility]* Diagnosis Malignant neoplasm of prostate (HCC)- Primary Malignant neoplasm of prostate documented in this encounter [facility] note* Diagnosis Malignant neoplasm of prostate (HCC)- Primary Malignant neoplasm of prostate [facility]* Diagnosis Malignant neoplasm of prostate (HCC)- Primary Malignant neoplasm of prostate documented in this encounter [facility] note* Diagnosis Malignant neoplasm of prostate (HCC) Malignant neoplasm of prostate [facility]* Diagnosis Malignant neoplasm of prostate (HCC)- Primary Malignant neoplasm of prostate documented in this encounter [facility] note* Diagnosis Malignant neoplasm of prostate (HCC)- Primary Malignant neoplasm of prostate [facility]* Diagnosis Malignant neoplasm of prostate (HCC)- Primary Malignant neoplasm of prostate [facility] noteNo assessment information availableShelby Memorial Hospital Work Phone: evaluation note* Diagnosis Hematuria, unspecified type- Primary Malignant neoplasm of prostate (HCC) Malignant neoplasm of prostate documented in this encounter [facility] note* Diagnosis Urinary tract infection without hematuria, site unspecified- Primary documented in this encounter [facility] note* Diagnosis History of prostate cancer- Primary Personal history of malignant neoplasm of prostate Spinal arthritis Spondylosis of unspecified site without mention of myelopathy Spinal stenosis of lumbar region, unspecified whether neurogenic claudication present [facility]* Diagnosis Spinal stenosis of lumbar region without neurogenic claudication- Primary Spinal stenosis, lumbar region, without neurogenic claudication documented [facility]* Diagnosis Spinal stenosis of lumbar region, unspecified whether neurogenic claudication present- Primary documented in this encounter [facility] note* Diagnosis Spinal stenosis, lumbar region with neurogenic claudication- Primary Foraminal stenosis of lumbar region Spinal stenosis, lumbar region, without neurogenic claudication Peripheral artery disease (HCC) Peripheral vascular disease, unspecified Prostate cancer (HCC) Malignant neoplasm of prostate [facility] noteNo PrescreenShoshone cuaQea Other Evaluation note* Diagnosis Spinal stenosis, lumbar region with neurogenic claudication- Primary Foraminal stenosis of lumbar region Spinal stenosis, lumbar region, without neurogenic claudication documented [facility] this [facility]* Diagnosis Spondylolisthesis of lumbar region- Primary Acquired spondylolisthesis documented in this encounter [facility] note* Diagnosis Hypertension, unspecified type Mixed hyperlipidemia Bilateral carotid artery disease, unspecified type (CMS/HCC) History of VT (myocardial infarction) Old myocardial infarction BMI 28.0-28.9,adult ASHD (arteriosclerotic heart disease) Coronary atherosclerosis of unspecified type of vessel, [place] or graft PVD (peripheral vascular disease) ([facility]/HCC) Unspecified peripheral vascular disease Smoker Tobacco use disorder Chest pain, unspecified type documented in this encounter [facility] Work Phone: Evaluation note* Diagnosis Onset Date Resolution Status Current every day smoker acutePAD (peripheral artery disease)[facility] Work Phone: Evaluation note* Diagnosis Onset Date Resolution Status Anemia of renal disease acuteCKD (chronic kidney disease) stage 3, GFR 30-59 ml/minacute [id number] hyperparathyroidismacuteUTI (urinary tract infection)[facility] Work Phone: Evaluation note* Diagnosis Primary [...] neoplasm of prostate Coronary artery disease involving [place] coronary artery of [place] heart without angina pectoris (CMS/HCC) H/O prostate cancer Mixed hyperlipidemia (CMS/HCC) Mixed hyperlipidemia Chronic bilateral low back pain with bilateral sciatica Coronary artery disease involving [place] coronary artery of [place] heart without angina pectoris (CMS/HCC)- Primary PAD (peripheral artery disease) (CMS/HCC) Unspecified peripheral vascular disease Primary hypertension (CMS/HCC) Unspecified essential hypertension Stage 3a chronic kidney disease (HCC) (CMS/HCC) Lumbar stenosis with neurogenic claudication Mixed hyperlipidemia (CMS/HCC) Mixed hyperlipidemia Elevated random blood glucose level Unintentional weight change Gastroesophageal reflux disease without esophagitis Esophageal reflux Coronary artery disease involving [place] coronary artery of [place] heart without angina pectoris (CMS/HCC)- Primary Stage 3a chronic kidney disease (HCC) (CMS/HCC) Lumbar stenosis with neurogenic claudication Primary hypertension (CMS/HCC)- Primary Unspecified essential hypertension Coronary artery disease involving [place] coronary artery of [place] heart without angina pectoris (CMS/HCC) Stage 3a [...] disease (HCC) (CMS/HCC) documented [facility] encounter [facility]* Diagnosis Primary hypertension (CMS/HCC)- Primary Unspecified essential hypertension Coronary artery disease involving [place] coronary artery of [place] heart without angina pectoris (CMS/HCC) Stage 3a chronic kidney disease (HCC) (CMS/HCC) Gastroesophageal reflux disease without esophagitis Esophageal reflux Tobacco abuse Tobacco use disorder Prostate cancer (CMS/HCC) Malignant neoplasm of prostate Benign prostatic hyperplasia with lower urinary tract symptoms, symptom details unspecified documented in this encounter [facility] Healthcare[facility]* Diagnosis Primary hypertension ([facility]) Unspecified essential hypertension documented in this encounter [facility] Healthcare[facility]* Diagnosis Onset Date Resolution Status Admit Date Anemia of renal disease acuteMarch 2024 10:35amCKD (chronic kidney disease) stage 3, GFR 30-59 ml/minacuteMarch 2024 10:35amHypertensive chronic kidney disease with stage 1 through stage 4 chronic kiacuteMarch 2024 10:35amMicroscopic hematuriaacuteMarch 2024 10:35amSecondary hyperparathyroidismacuteMarch 2024 10:35am [facility] Work Phone: Evaluation note* Diagnosis Mixed hyperlipidemia- Primary Bilateral carotid artery disease, unspecified type Hypertension, unspecified type BMI 28.0-28.9,adult Smoker Tobacco use disorder Prostate cancer (Multi) Malignant neoplasm of prostate Chronic kidney disease, stage 3b (Multi) ASHD (arteriosclerotic heart disease) Coronary atherosclerosis of unspecified type of vessel, [place] or graft PVD (peripheral vascular disease) ([facility]) Unspecified peripheral vascular disease documented in this encounter [facility] Work Phone: Evaluation note* Diagnosis Onset Date Resolution Status Admit Date Anemia of renal disease acuteSeptember 2024 11:31amCKD (chronic kidney disease) stage 3, GFR 30-59 ml/minacuteSeptember 2024 11:31amHypertensive chronic kidney disease with stage 1 through stage 4 chronic kiacuteSeptember 2024 11:31amMicroscopic hematuriaacuteSeptember 2024 11:31amSecondary hyperparathyroidismacute Kelli 2024 11:31am [facility] Work Phone: History general Narrative - Reported* Type Description Date Medical History CKD (CHRONIC KIDNEY DISEASE) STA GE III Medical HistoryCLAUDICATIONMedical HistoryHYPERLIPIDEMIAMedical HistoryBPH Medical HistoryANXIETYMedical HistoryCORONARY ATHEROSCLEROSISMedical History PERIPHERAL ARTERIAL DISEASEMedical HistoryHYPERTENSIONMedical HistoryPROSTATE CANCERSurgical HistoryBILATERAL CAROTID [id number] History CORONARY STENT IN [id number] HistoryPROSTATE SURGERYHospitalization HistorySEE ABOVE [facility] Other History general Narrative - Reported* Type Description Date Medical History CKD (CHRONIC KIDNEY DISEASE) STA GE III Medical HistoryCLAUDICATIONMedical HistoryHYPERLIPIDEMIAMedical HistoryBPH Medical HistoryANXIETYMedical HistoryCORONARY ATHEROSCLEROSISMedical History PERIPHERAL ARTERIAL DISEASEMedical HistoryHYPERTENSIONMedical HistoryPROSTATE CANCERSurgical HistoryBILATERAL CAROTID [id number] History CORONARY STENT IN [id number] HistoryPROSTATE SURGERYSurgical History ANGIOPLASTY LT03/2023Hospitalization HistorySEE ABOVE [facility] Other Hospital course Narrative No data available for this section [facility] Discharge instructions No data available for this section [facility] No data available for this section [facility] CampusReason for referral (narrative)* Consultation (Routine) - AuthorizedSpecialtyDiagnoses / ProceduresReferred By Contact Referred To ContactCardiology Diagnoses Hypertension, unspecified type Mixed hyperlipidemia Bilateral carotid artery disease, unspecified type (CMS/HCC) Procedures Follow Up In Cardiology Chaim Grayson DO [address] [place] [address] 2, [address] [address] Chaim Grayson DO [address] [facility] 2, [address] [address] Referral IDStatusReasonStart DateExpiration DateVisits RequestedVisits [id number]/4/20241/ * Cardiovascular (Routine) - Pending ReviewSpecialtyDiagnoses / Procedures Referred By ContactReferred To Contact Diagnoses Mixed hyperlipidemia Bilateral carotid artery disease, unspecified type (CMS/HCC) Procedures ECG 12 Lead Chaim Grayson DO [address] [facility] 2, [place] [id number] Referral IDStatusReasonStwoodburn DateExpiration DateVisits RequestedVisits [id number] Review * Consultation (Routine) - AuthorizedSpecialtyDiagnoses / ProceduresReferred By ContactReferred To ContactCardiology Diagnoses Hypertension, unspecified type Bilateral carotid artery disease, unspecified type (CMS/HCC) Procedures Follow Up In Cardiology Chaim Grayson DO [place] [address] [place] [address], [address] [address] Referral IDStatusReasonStwoodburn DateExpiration DateVisits RequestedVisits [id number]/4/20241/3/[id number] * Cardiac Stress Testing (Routine) - Pending ReviewSpecialtyDiagnoses / ProceduresReferred By ContactReferred To ContactRadiology Diagnoses Hypertension, unspecified type Bilateral carotid artery disease, unspecified type (CMS/HCC) Chest pressure Procedures Nuclear Stress Test CHG MYOCARDIAL SPECT MULTIPLE STUDIES CHG MYOCARDIAL SPECT SINGLE STUDY AT REST OR STRESS KenanChaim DO [place] [address] [place] [address] [address], [address] [address] Referral IDStatusReasonStwoodburn DateExpiration DateVisits RequestedVisits [id number] Review [facility] Work Phone: Reason for referral (narrative)* Consultation (Routine) - Pending ReviewSpecialtyDiagnoses / ProceduresReferred By Contact Referred To ContactUrology Diagnoses Prostate cancer (CMS/HCC) Benign prostatic hyperplasia with lower urinary tract symptoms, symptom details unspecified Procedures [place] OFFICE/OUTPATIENT NEW HIGH MDM 60 MINUTES Nasir Ward NP [address] [place] [address] Travis Bryant MD [address] [place] [address] Referral IDStatusReasonStart DateExpiration DateVisits RequestedVisits [id number] Review Specialty Services Required / Scheduling Instructions Please include OV note from today and from Dr. Johnston office VLADIMIR Allen for referral (narrative)No reason for referral information availableMercy Health [facility] Hospital Work Phone: Summary Purpose Family History [...] kidney disease) stage 3, GFR 30-59 ml/min [id number] Secondary hyperparathyroidism UTI (urinary tract infection) Chief [...] artery disease, unspecified type (CMS/HCC) History of VT (myocardial infarction) ASHD (arteriosclerotic heart disease) PVD (peripheral vascular disease) (CMS/[facility]) Chest pain, unspecified type Procedures ECG 12 Lead Chaim Grayson, DO [address] [facility] 2, [address] [place], [place] [address] Referral IDStatusReasonStart DateExpiration DateVisits RequestedVisits [id number]/19/20243/19/[id number] / Procedures Referred By ContactReferred To ContactCardiology Diagnoses Bilateral carotid artery disease, unspecified type (CMS/[facility]) Procedures Follow Up In Cardiology Chaim Grayson, DO [address] [facility] 2, [address] [place] [phone] KenanChaim, DO [address] [facility] 2, [place] [address] Referral IDStatusReasonStart DateExpiration DateVisits RequestedVisits [id number]/19/20243/480038ZpmfmoqcqBbyunysfy / Procedures Referred By ContactReferred To [facility] Diagnoses Spondylolisthesis of lumbar region Procedures CONSULT TO [facility] (CH[facility] PAIN) OFFICE/OUTPATIENT [facility] 60 MINUTES Kodi Reynolds MD [address] [place] [address] Referral IDStatusReasonStart DateExpiration DateVisits RequestedVisits [id number] Review PCP Requested Referral /[id number] / ProceduresReferred By ContactReferred To Contact Diagnoses Spinal stenosis, lumbar region with neurogenic claudication Foraminal stenosis of lumbar region Procedures CONSULT TO SPINE SURGERY OFFICE/OUTPATIENT [facility] 60-74 MINUTES Jose Nichols DO [address] [place] [address] Referral IDStatusReasonStart DateExpiration DateVisits RequestedVisits [id number] Review PCP Requested Referral /[id number] / ProceduresReferred By ContactReferred To ContactMR IMAGING Diagnoses Spinal stenosis of lumbar region, unspecified whether neurogenic claudication present Procedures MRI LUMBAR SPINE WO/W IVCON MRI SPINAL CANAL LUMBAR W/O & W/CONTR MATRL Genoveva Nazario MD [address] [place] [address] Mr Imaging Referral IDStatusReasonStwoodburn DateExpiration DateVisits RequestedVisits [id number] Review Auto-Generated Referral /[id number] / ProceduresReferred By ContactReferred To ContactNeurosurgery Diagnoses Spinal arthritis Procedures CONSULT TO NEUROSURGERY OFFICE/OUTPATIENT [facility] 60-74 MINUTES Genoveva Nazario MD [address] [place] [address] Referral IDStatusReasonStwoodburn DateExpiration DateVisits RequestedVisits [id number] Review PCP Requested Referral / Additional Source [...] section and content) DATE CREATED AUTHOR 06/12/2021 [facility] DATE CREATED AUTHOR AUTHOR'S ORGANIZ ATION 03/27/2022 [facility] DATE CREATED AUTHOR AUTHOR'S ORGANIZ ATION 11/07/2022 [facility] DATE CREATED AUTHOR AUTHOR'S ORGANIZ ATION 01/06/2023 [facility] DATE CREATED AUTHOR AUTHOR'S ORGANIZ ATION 06/16/2023 [facility] DATE CREATED AUTHOR AUTHOR'S ORGANIZ ATION 06/29/2023 [facility] DATE CREATED AUTHOR AUTHOR'S ORGANIZ ATION 08/17/2023 [facility] DATE CREATED AUTHOR AUTHOR'S ORGANIZ ATION 04/11/2024 [facility] DATE CREATED AUTHOR AUTHOR'S ORGANIZ ATION 04/21/2024 [facility] DATE CREATED AUTHOR AUTHOR'S ORGANIZ ATION 07/15/2024 [facility] DATE CREATED AUTHOR AUTHOR'S ORGANIZ ATION 08/15/2024 [facility] DATE CREATED AUTHOR AUTHOR'S ORGANIZ ATION 08/26/2024 [facility] DATE CREATED AUTHOR AUTHOR'S ORGANIZ ATION 08/30/2024 [facility] DATE CREATED AUTHOR AUTHOR'S ORGANIZ ATION 01/19/2025 [facility] DATE CREATED AUTHOR AUTHOR'S ORGANIZ ATION 03/04/2025 [facility] DATE CREATED AUTHOR AUTHOR'S ORGANIZ ATION 03/16/2025 [facility] DATE CREATED AUTHOR AUTHOR'S ORGANIZ ATION 03/20/2025 [facility] DATE CREATED AUTHOR AUTHOR'S ORGANIZ ATION 03/25/2025 [facility] DATE CREATED AUTHOR AUTHOR'S ORGANIZ ATION 04/04/2025 [facility] REASON FOR VISIT (unrecogniz ed section and content) ReasonCommentsConsultReasonCommentsPatient UpdateReasonCommentsPatient Update AppointmentReasonOnset DateCommentsSimulation Request Form2Reason CommentsSocial Work ServicesReasonCommentsOrdersReasonCommentsRadiotherapy On- treatment VisitReasonCommentsPhlebotomyReasonCommentsResultsAppointmentReason CommentsProstate CancerReasonCommentsReferral InformationReasonCommentsPatient QuestionAppointmentReasonCommentsOrdersReasonCommentsOrdersAppointmentReason CommentsNew PatientLow Back PainSpecialtyDiagnoses / ProceduresReferred By ContactReferred To ContactNeurosurgery Diagnoses Spinal arthritis Procedures CONSULT TO NEUROSURGERY OFFICE/OUTPATIENT [facility] 60-74 MINUTES Genoveva Nazario MD [address] [place] [address] [place] [address] Referral IDStatusReasonStart DateExpiration DateVisits RequestedVisits [id number] Review PCP Requested Referral [id number]a ConfirmationReasonComments Establish CareFawwad pvd HTN abn ekgSpecialtyDiagnoses / ProceduresReferred By ContactReferred To Contact Diagnoses Mixed hyperlipidemia Bilateral carotid artery disease, unspecified type (CMS/HCC) Procedures ECG 12 Lead Chaim Grayson, DO [address], [address] [place] [id number] Referral IDStatusReasonStart DateExpiration DateVisits RequestedVisits [id number] [id number] Back PainNew Patient EvaluationNew PatientSpecialtyDiagnoses / ProceduresReferred By Contact Referred To ContactRadiology Diagnoses Hypertension, unspecified type Bilateral carotid artery disease, unspecified type (CMS/HCC) Chest pressure Procedures Nuclear Stress Test CHG MYOCARDIAL SPECT MULTIPLE STUDIES CHG MYOCARDIAL SPECT SINGLE STUDY AT REST OR STRESS Chaim Grayson, DO [address] [facility] 2, [address] [place] [address] Referral IDStatusReasonStart DateExpiration DateVisits RequestedVisits [id number]/4/20241/3/[id number]-vn4gnFifldrjvk Diagnoses / ProceduresReferred By ContactReferred To ContactCardiology Diagnoses Hypertension, unspecified type Mixed hyperlipidemia Bilateral carotid artery disease, unspecified type (CMS/HCC) Procedures Follow Up In Cardiology Kenan, Chaim Davison, DO [address] [facility] 2, [address] [place] [address] Kenan Chaim Laney, DO [address], [address] [place] [id number] Referral IDStatusReasonStart DateExpiration DateVisits RequestedVisits [id number]/[id number]/[id number] Cancer SpecialtyDiagnoses / ProceduresReferred By ContactReferred To ContactRadiation Oncology / RADIATION ONCOLOGY Diagnoses Malignant neoplasm of prostate jeovany treating prostate Procedures SIMULATION [place] IMRT 28fractions Genoveva Nazario MD [address] [place] [address] [place] [address] Genoveva Nazario MD [address] [place] [address] [place] [address] Referral IDStatusReasonStart DateExpiration DateVisits RequestedVisits [id number]/27/[id number] RefillReason Onset DateCommentsMed Irdemh564ReasonOnset DateCommentsMed Refill 4ReasonCommentsFollow-upReasonCommentsAnnual Exam1y Follow up for Coronary Artery DiseaseSpecialtyDiagnoses / ProceduresReferred By Contact Referred To ContactCardiology Diagnoses Bilateral carotid artery disease, unspecified type Procedures Follow Up In Cardiology Chaim Grayson, [place] [id number] Phone: tel: fax: Chaim Grayson, [address], [place] [phone] Phone: tel: fax: Referral IDStatusReasonStart DateExpiration DateVisits RequestedVisits [id number]/19/20243/[id number] DateCommentsMed Rilexn0809/12/2024ReasonCommentsProstate CancerFollow up Source Comments (unrecognize d section and content) In the event this informatio n is protected by the Federal Confidentiality of Alcohol and Drug Abuse Patient Records regulations: The Federal rules restrict any use of the information to criminally investigate or prosecute any alcohol or drug abuse patient.[facility]In the event this information is protected by the Federal Confidentiality of Alcohol and Drug Abuse Patient Records regulations: The Federal rules restrict any use of the information to criminally investigate or prosecute any alcohol or drug abuse patient.[facility]ronIn the event this information is protected by the Federal Confidentiality of Alcohol and Drug Abuse Patient Records regulations: The Federal rules restrict any use of the information to criminally investigate or prosecute any alcohol or drug abuse patient.[facility]ronIn the event this information is protected by the Federal Confidentiality of Alcohol and Drug Abuse Patient Records regulations: The Federal rules restrict any use of the information to criminally investigate or prosecute any alcohol or drug abuse patient.[facility]ronIn the event this information is protected by the Federal Confidentiality of Alcohol and Drug Abuse Patient Records regulations: The Federal rules restrict any use of the information to criminally investigate or prosecute any alcohol or drug abuse patient.[facility]ronIn the event this information is protected by the Federal Confidentiality of Alcohol and Drug Abuse Patient Records regulations: The Federal rules restrict any use of the information to criminally investigate or prosecute any alcohol or drug abuse patient.[facility]ronIn the event this information is protected by the Federal Confidentiality of Alcohol and Drug Abuse Patient Records regulations: The Federal rules restrict any use of the information to criminally investigate or prosecute any alcohol or drug abuse patient.[facility]ronIn the event this information is protected by the Federal Confidentiality of Alcohol and Drug Abuse Patient Records regulations: The Federal rules restrict any use of the information to criminally investigate or prosecute any alcohol or drug abuse patient.[facility]ronIn the event this information is protected by the Federal Confidentiality of Alcohol and Drug Abuse Patient Records regulations: The Federal rules restrict any use of the information to criminally investigate or prosecute any alcohol or drug abuse patient.[facility]ronIn the event this information is protected by the Federal Confidentiality of Alcohol and Drug Abuse Patient Records regulations: The Federal rules restrict any use of the information to criminally investigate or prosecute any alcohol or drug abuse patient.[facility]ronIn the event this information is protected by the Federal Confidentiality of Alcohol and Drug Abuse Patient Records regulations: The Federal rules restrict any use of the information to criminally investigate or prosecute any alcohol or drug abuse patient.[facility]ronIn the event this information is protected by the Federal Confidentiality of Alcohol and Drug Abuse Patient Records regulations: The Federal rules restrict any use of the information to criminally investigate or prosecute any alcohol or drug abuse patient.[facility]ronIn the event this information is protected by the Federal Confidentiality of Alcohol and Drug Abuse Patient Records regulations: The Federal rules restrict any use of the information to criminally investigate or prosecute any alcohol or drug abuse patient.[facility]ronIn the event this information is protected by the Federal Confidentiality of Alcohol and Drug Abuse Patient Records regulations: The Federal rules restrict any use of the information to criminally investigate or prosecute any alcohol or drug abuse patient.[facility]ronIn the event this information is protected by the Federal Confidentiality of Alcohol and Drug Abuse Patient Records regulations: The Federal rules restrict any use of the information to criminally investigate or prosecute any alcohol or drug abuse patient.[facility]ronIn the event this information is protected by the Federal Confidentiality of Alcohol and Drug Abuse Patient Records regulations: The Federal rules restrict any use of the information to criminally investigate or prosecute any alcohol or drug abuse patient.[facility]ronIn the event this information is protected by the Federal Confidentiality of Alcohol and Drug Abuse Patient Records regulations: The Federal rules restrict any use of the information to criminally investigate or prosecute any alcohol or drug abuse patient.[facility]ronIn the event this information is protected by the Federal Confidentiality of Alcohol and Drug Abuse Patient Records regulations: The Federal rules restrict any use of the information to criminally investigate or prosecute any alcohol or drug abuse patient.[facility]ronIn the event this information is protected by the Federal Confidentiality of Alcohol and Drug Abuse Patient Records regulations: The Federal rules restrict any use of the information to criminally investigate or prosecute any alcohol or drug abuse patient.[facility]ronIn the event this information is protected by the Federal Confidentiality of Alcohol and Drug Abuse Patient Records regulations: The Federal rules restrict any use of the information to criminally investigate or prosecute any alcohol or drug abuse patient.[facility]ronIn the event this information is protected by the Federal Confidentiality of Alcohol and Drug Abuse Patient Records regulations: The Federal rules restrict any use of the information to criminally investigate or prosecute any alcohol or drug abuse patient.[facility]ronIn the event this information is protected by the Federal Confidentiality of Alcohol and Drug Abuse Patient Records regulations: The Federal rules restrict any use of the information to criminally investigate or prosecute any alcohol or drug abuse patient.[facility]ronIn the event this information is protected by the Federal Confidentiality of Alcohol and Drug Abuse Patient Records regulations: The Federal rules restrict any use of the information to criminally investigate or prosecute any alcohol or drug abuse patient.[facility]ronIn the event this information is protected by the Federal Confidentiality of Alcohol and Drug Abuse Patient Records regulations: The Federal rules restrict any use of the information to criminally investigate or prosecute any alcohol or drug abuse patient.[facility]ronIn the event this information is protected by the Federal Confidentiality of Alcohol and Drug Abuse Patient Records regulations: The Federal rules restrict any use of the information to criminally investigate or prosecute any alcohol or drug abuse patient.[facility]ronIn the event this information is protected by the Federal Confidentiality of Alcohol and Drug Abuse Patient Records regulations: The Federal rules restrict any use of the information to criminally investigate or prosecute any alcohol or drug abuse patient.[facility]ronIn the event this information is protected by the Federal Confidentiality of Alcohol and Drug Abuse Patient Records regulations: The Federal rules restrict any use of the information to criminally investigate or prosecute any alcohol or drug abuse patient.[facility]ronIn the event this information is protected by the Federal Confidentiality of Alcohol and Drug Abuse Patient Records regulations: The Federal rules restrict any use of the information to criminally investigate or prosecute any alcohol or drug abuse patient.[facility]ronIn the event this information is protected by the Federal Confidentiality of Alcohol and Drug Abuse Patient Records regulations: The Federal rules restrict any use of the information to criminally investigate or prosecute any alcohol or drug abuse patient.[facility]ronIn the event this information is protected by the Federal Confidentiality of Alcohol and Drug Abuse Patient Records regulations: The Federal rules restrict any use of the information to criminally investigate or prosecute any alcohol or drug abuse patient.[facility]ronIn the event this information is protected by the Federal Confidentiality of Alcohol and Drug Abuse Patient Records regulations: The Federal rules restrict any use of the information to criminally investigate or prosecute any alcohol or drug abuse patient.[facility]ronIn the event this information is protected by the Federal Confidentiality of Alcohol and Drug Abuse Patient Records regulations: The Federal rules restrict any use of the information to criminally investigate or prosecute any alcohol or drug abuse patient.[facility]ronIn the event this information is protected by the Federal Confidentiality of Alcohol and Drug Abuse Patient Records regulations: The Federal rules restrict any use of the information to criminally investigate or prosecute any alcohol or drug abuse patient.[facility]ronIn the event this information is protected by the Federal Confidentiality of Alcohol and Drug Abuse Patient Records regulations: The Federal rules restrict any use of the information to criminally investigate or prosecute any alcohol or drug abuse patient.[facility]ronIn the event this information is protected by the Federal Confidentiality of Alcohol and Drug Abuse Patient Records regulations: The Federal rules restrict any use of the information to criminally investigate or prosecute any alcohol or drug abuse patient.[facility]ronIn the event this information is protected by the Federal Confidentiality of Alcohol and Drug Abuse Patient Records regulations: The Federal rules restrict any use of the information to criminally investigate or prosecute any alcohol or drug abuse patient.[facility] Care Teams (unrecognized sec tion and content) [...] Provider, Other Provid er Active Loco Ferrera AQUACULTURE PROGRAM DIRECTOR-CAttending ProviderActiveTeam MemberRelationshipSpecialtyStart DateEnd Date Shaikh Storm MD [address] [place] [address] PCP - GeneralPrimary Care12/06/21 Barbara Johnston MD [address] [place] [address] ReferringUrology12/06/21Team MemberRelationshipSpecialtyStart DateEnd Date Shaikh Storm MD [address] [place] [address] PCP - GeneralPrimary Care12/06/21 Barbara Johnston MD [address] [place] [address] ReferringUrology12/06/21Team MemberRelationshipSpecialtyStart DateEnd Date Shaikh Storm MD [address] [place] [address] PCP - GeneralPrimary Care12/06/21 Barbara Johnston MD [address] [place] [address] ReferringUrology12/06/21Team MemberRelationshipSpecialtyStart DateEnd Date Shaikh Storm MD [address] [place] [address] PCP - GeneralPrimary Care12/06/21 Barbara Johnston MD [address] [place] [address] ReferringUrology12/06/21Team MemberRelationshipSpecialtyStart DateEnd Date Shaikh Storm MD [address] [place] [address] PCP - GeneralPrimary Care12/06/21 Barbara Johnston MD [address] [place] [address] ReferringUrology12/06/21 Constance Durand, [facility] Social Puviok99/4/22Team MemberRelationshipSpecialtyStart DateEnd Date Shaikh Storm MD [address] [place] [address] PCP - GeneralPrimary Care12/06/21 Barbara Johnston MD [address] [place] [address] ReferringUrology12/06/21 Constance Durand, [facility] Social Veiuwx21/4/22Team MemberRelationshipSpecialtyStart DateEnd Date Shaikh Storm MD [address] [place] [address] PCP - GeneralPrimary Care12/06/21 Barbara Johnston MD [address] [place] [address] ReferringUrology12/06/21 Constance DurandFIRST[facility]ALTH Social Rlahbt21/4/22Team MemberRelationshipSpecialtyStart DateEnd Date Shaikh Storm MD [address] [place] [address] PCP - GeneralPrimary Care12/06/21 Barbara Johnston MD [address] [place] [address] ReferringUrology12/06/21 Constance DurandFIRST[facility]ALTH Social Ysvumq22/4/22Team MemberRelationshipSpecialtyStart DateEnd Date Shaikh Storm MD [address] [place] [address] PCP - GeneralPrimary Care12/06/21 Barbara Johnston MD [address] [place] [address] ReferringUrology12/06/21 Constance Durand, [facility] Social Oznhxj72/4/22Team MemberRelationshipSpecialtyStart DateEnd Date Shaikh Storm MD [address] [place] [address] PCP - GeneralPrimary Care12/06/21 Barbara Johnston MD [address] [place] [address] ReferringUrology12/06/21 Constance Durand, [facility] Social Noomud45/4/22Team MemberRelationshipSpecialtyStart DateEnd Date Shaikh Storm MD [address] [place] [address] PCP - GeneralPrimary Care12/06/21 Barbara Johnston MD [address] [place] [address] ReferringUrology12/06/21 Constance Durand, [facility] Social Fdjfrb35/4/22Team MemberRelationshipSpecialtyStart DateEnd Date Shaikh Storm MD [address] [place] [address] PCP - GeneralPrimary Care12/06/21 Barbara Johnston MD [address] [place] [address] ReferringUrology12/06/21 Constance Durand, [facility] Social Jkzheg60/4/22Team MemberRelationshipSpecialtyStart DateEnd Date Shaikh Storm MD [address] [place] [address] PCP - GeneralPrimary Care12/06/21 Barbara Johnston MD [address] [place] [address] ReferringUrology12/06/21 Constance DurandFIRST[facility]ALTH Social Ewmvsk91/4/22Team MemberRelationshipSpecialtyStart DateEnd Date Shaikh Storm MD [address] [place] [address] PCP - GeneralPrimary Care12/06/21 Barbara Johnston MD [address] [place] [address] ReferringUrology12/06/21 Constance DurandFIRST[facility] Social Fopreh06/4/22Team MemberRelationshipSpecialtyStart DateEnd Date Shaikh Storm MD [address] [place] [address] PCP - GeneralPrimary Care12/06/21 Barbara Johnston MD [address] [place] [address] ReferringUrology12/06/21 Constance DurandFIRST[facility] Social Yeudgn91/4/22 Team Status: Inactive Member Role Status Dates Shaikh Dotty MD Primary Care Provider Active Zeinab [facility] ProviderActiveTeam MemberRelationshipSpecialtyStart DateEnd Date Shaikh Storm MD [address] [place] [address] PCP - GeneralPrimary Care12/06/21 Barbara Johnston MD [address] [place] [address] ReferringUrology12/06/21 Constacne Durand LSW Social Qpbssf18/4/22 Team Status: Inactive Member Role Status Dates Shaikh Dotty MD Primary Care Provider Active Lyla Nazario [facility] ProviderActiveTeam MemberRelationshipSpecialty Start DateEnd Date Shaikh Storm MD [address] [place] [address] PCP - GeneralPrimary Care12/06/21 Barbara Johnston MD [address] [place] [address] ReferringUrology12/06/21 Constance Durand LSW Social Hkpfpk31/4/22Team MemberRelationshipSpecialtyStart DateEnd Date Shaikh Storm MD [address] [place] [address] PCP - GeneralPrimary Care12/06/21 Barbara Johnston MD [address] [place] [address] ReferringUrology12/06/21 Constance Durand LSW Social Fishkq02/4/22Team MemberRelationshipSpecialtyStart DateEnd Date Shaikh Storm MD [address] [place] [address] PCP - GeneralPrimary Care12/06/21 Barbara Johnston MD [address] [place] [address] ReferringUrology12/06/21 Constance Durand LSW Social Ihnjdy21/4/22Team MemberRelationshipSpecialtyStart DateEnd Date Shaikh Storm MD [address] [place] [address] PCP - GeneralPrimary Care12/06/21 Barbara Johnston MD [address] [place] [address] ReferringUrology12/06/21 Constance Durand, [facility] Social Yfovqj00/4/22Team MemberRelationshipSpecialtyStart DateEnd Date Shaikh Storm MD [address] [place] [address] PCP - GeneralPrimary Care12/06/21 Barbara Johnston MD [address] [place] [address] ReferringUrology12/06/21 Constance DurandFIRST[facility] Social Uynyrk64/4/22Te MemberRelationshipSpecialtyStart DateEnd Date Shaikh Storm MD [address] [place] [place] [address] PCP - GeneralPrimary Care12/06/21 Barbara Johnston MD [address] [place] [address] ReferringUrology12/06/21 Constance [facility]andFIRST[facility] Social Jgarku67/4/22Te MemberRelationshipSpecialtyStart DateEnd Date Shaikh Storm MD [address] [place] [address] PCP - GeneralPrimary Care12/06/21 Barbara Johnston MD [address] [place] [address] ReferringUrology12/06/21 Constance Durand, [facility] Social Mowwbc78/4/22Team MemberRelationshipSpecialtyStart DateEnd Date Shaikh Storm MD [address] [place] [address] PCP - GeneralPrimary Care12/06/21 Barbara Johnston MD [address] [place] [address] ReferringUrology12/06/21 Constance Durand, [facility] Social Yzqslw44/4/22Team MemberRelationshipSpecialtyStart DateEnd Date Shaikh Storm MD [address] [place] [address] PCP - GeneralPrimary Care12/06/21 Barbara Johnston MD [address] [place] [address] ReferringUrology12/06/21 Constance Durand, [facility] Social Stdhmt22/4/22 Team Status: Inactive Member Role Status Dates Shaikh Dotty MD Primary Care Provider Active Temporary AnesthesiologistAttending ProviderActiveTeam MemberRelationship SpecialtyStart DateEnd Date Shaikh Storm MD [address] [place] [address] PCP - GeneralPrimary Care12/06/21 Barbara Johnston MD [address] [place], [place] [address] ReferringUrology12/06/21 Constance Durand, [facility] Social Ywcnzw98/4/22 Team Status: Inactive Member Role Status Dates Shaikh Dotty MD Primary Care Provider Active Qasim May ProviderActive Team Status: Inactive Member Role Status Dates Shaikh Dotty MD Primary Care Provider Active Qasim Cueva ProviderActiveTeam MemberRelationshipSpecialtyStart DateEnd Date Shaikh Storm MD [address] [place] [address] PCP - GeneralPrimary Care12/06/21 Barbara Johnston MD [address] [place] [address] ReferringUrology12/06/21 Constance Durand, [facility] Social Vdisur53/4/22Team MemberRelationshipSpecialtyStart DateEnd Date Shaikh Storm MD [address] [place] [address] PCP - GeneralPrimary Care12/06/21 Barbara Johnston MD [address] [place] [address] ReferringUrology12/06/21 Constance Durand, [facility] Social Bbddpd57/4/22 Team Status: Inactive Member Role Status Dates Shaikh Dotty MD Primary Care Provider, Attending Pr ovider Active Team MemberRelationshipSpecialtyStart DateEnd Date Shaikh Storm MD [address] [place] [address] PCP - GeneralInternal Medicine06/04/23Team MemberRelationshipSpecialtyStart Date End Date Shaikh Storm MD [address] [place] [address] PCP - GeneralPrimary Care12/06/21 Barbara Johnston MD [address] [place] [address] ReferringUrology12/06/21 Constance Durand LSW Social Jtqwlm24/4/22Team MemberRelationshipSpecialtyStart DateEnd Date Shaikh Storm MD [address] [place] [address] PCP - GeneralInternal Medicine06/04/23Team MemberRelationshipSpecialtyStart Date End Date Shaikh Storm MD [address] [place] [address] PCP - GeneralInternal Medicine06/04/23Team MemberRelationshipSpecialtyStart Date End Date Shaikh Storm MD PCP - GeneralInternal Medicine06/04/23 Team Status: Inactive Member Role Status Dates Shaikh Dotty MD Primary Care Provider Active Start: October 15, 2023 End: October 15, 2023Bonnie Tan AQUACULTURE PROGRAM DIRECTOR-CAttending ProviderActiveStart: October 15, 2023 End: October 15, 2023Team MemberRelationshipSpecialtyStart DateEnd Date Shaikh Storm MD [address] [place] [address] PCP - GeneralPrimary Care12/06/21 Barbara Johnston MD [address] [place] [address] ReferringUrology12/06/21 Constance Durand LSW Social Amajyl06/4/22Team MemberRelationshipSpecialtyStart DateEnd Date Shaikh Storm MD [address] [address] PCP - GeneralPrimary Care12/06/21 Barbara Johnston MD [address] [place] [address] ReferringUrology12/06/21 Constance Durand LSW Social Bxbgdm79/4/22 Team Status: Active Member Role Status Dates [...] Date Brian Avalos MD [address] [place] [address] PCP - GeneralFamily Medicine01/12/24 Nasir Ward NP [address] [place] [address] Nurse PractitionerFamily Medicine01/12/24Team MemberRelationshipSpecialtyStart DateEnd Date Brian Avalos MD [address] [place], [place] [address] [facility] - [facility]01/12/24 Nasir Ward NP [address] [place], [place] [address] Nurse Pract[facility]Em[facility]01/12/24Team MemberRelationshipSpecialtyStart DateEnd Date Brian Avalos MD [address] [place], [place] [address] PCP - [facility]Em[facility]01/12/24 Nasir Ward, VALENTIN [address] [place], [place] [address] Nurse PractitionerEm[facility]01/12/24Team MemberRelationshipSpecialtyStart DateEnd Date Brian Avalos MD [address] [place], [place] [address] PCP - GeneralEm[facility]01/12/24 Nasir Ward, VALENTIN [address] [place], [place] [address] Nurse PractitionerEm[facility]01/12/24Team MemberRelationshipSpecialtyStart DateEnd Date Brian Avalos MD [address] [place], [place] [address] PCP - GeneralEm[facility]01/12/24 Nasir Ward, VALENTIN [address] [place], [place] [address] Nurse PractitionerEm[facility]01/12/24Team MemberRelationshipSpecialtyStart DateEnd Date Brian Avalos MD [address] [place], [place] [address] PCP - [facility]Em[facility]01/12/24 Nasir Ward NP [address] [place], [place] [address] Nurse PractitionerEm[facility]01/12/24Team MemberRelationshipSpecialtyStart DateEnd Date Brian Avalos MD [address] [place], [place] [address] PCP - [facility]01/12/24 Nasir Ward NP [address] [place], [place] [address] Nurse PractitionerEm[facility]01/12/24 Team Status: Inactive Member Role Status [...] : August 15, 2024 End: August 15, 2024[facility] ABDIfainachilton medical centernathaniel Care ProviderActiveStart: August 15, 2024 End: August 15, 2024Team MemberRelationshipSpecialtyStart DateEnd Date Shaikh Storm MD PCP - GeneralBanner Ironwood Medical Centernal Medicine06/04/23Team MemberRelationshipSpecialtyStart Date End Date Brian Avalos MD [address], [place] [address] PCP - [facility] Medicine01/12/24 Nasir Ward NP [address] [place], [place] [address] Nurse Practition[facility] Medicine01/12/24Team MemberRelationshipSpecialtyStart DateEnd Date Brian Avalos MD [address] [place], [place] [address] PCP - [facility] Medicine01/12/24 Nasir Ward NP [address] [place], [place] [address] Nurse PractitionerW[facility] Medicine01/12/24Team MemberRelationshipSpecialtyStart DateEnd Date Shaikh Storm MD [address] [place] [address] PCP - GeneralPrnovant health charlotte orthopaedic hospitalry Care12/06/21 Barbara Johnston MD [address] [place] [address] ReferringUrology12/06/21 Constance Durand LSW Social Zykjwd13/4/22Team MemberRelationshipSpecialtyStart DateEnd Date Brian Avalos MD PCP - [facility] Medicine01/12/24 Nasir Ward NP Nurse PractitionerW[facility] Medicine01/12/24 Team Status: Active Member Role [...] - GeneralFamily Medicine01/12/24 Nasir Ward NP Nurse PractitionerW[facility] Medicine01/12/24 Goals (unrecognized section and content) [...] BE BASED ON THE PRIMARY CLINICAL RECORDS. [employer] [facility]. provides no warranty or guarantee of the accuracy or completeness of information in this document.
[2025-04-17 16:02] LABS: Prostate Specific Antigen Dx 3.28 ng/mL (<=4.00)
== END 2025-04-17 14:39 | disposition home or self-care (01) ==
PROVIDERS: PCP Family Medicine; Visit Provider Urology
DX: Z85.46 Personal history of malignant neoplasm of prostate (principal)
CPT/HCPCS: 36415; 84153

== ENCOUNTER 2025-05-03 10:23 | Outpatient (OUT) | payer MEDICARE, SELFPAY ==
--- OUTSIDE RECORDS SUMMARY | 2025-04-20 09:45 | XMS_ITS | Encounter Summary ---
Author Organization [facility] Address [address] [place] [address] Care Team Providers Care Cdl A Driver Name Role Phone Shaikh AUBREE Storm Primary Care Provider [phone] Ronaldo Alaniz MD Unavailable [phone] Constance Durand Unavailable Unavailable Source Comments In the event this information is protected by the Federal Confidentiality of Alcohol and Drug AbusePatient Records regulations: The Federal rules restrict any use of the information to criminally investigate or prosecute any alcohol or drug abuse patient.[facility] Reason for Referral * Diagnostic Procedure Only (Routine) - New RequestSpecialtyDiagnoses / ProceduresReferred By ContactReferred To ContactMOLECULAR & FUNCTIONAL IMAGING Diagnoses Prostate cancer (HCC) Procedures NM PET/CT PROSTATE WHOLE BODY IMAGING PET IMAGING CT ATTENUATION SKULL BASE MID-THIGH Hyun Raza MD [address] [place] [address] [place] [address] Phone: tel: fax: Molecular Imaging [address] [phone] Phone: tel: Referral IDStatusMaco DateExpiration DateVisits RequestedVisits [id number] Request Auto-Generated Referral Reason for Visit * ReasonCommentsProstate Cancer Encounter Details DateTypeDepartmentCare Team (Latest Contact Info)Uzccgayeybl69/20/2025 9:45 AM ESTOffice Visit Radiation Oncology [address] [place] [address] [place] [address] Hyun Raza MD [address] [place] [address] [place] [address] Prostate cancer (HCC) (Primary Dx) Social History Tobacco UseTypesPacks/DayYears UsedDateSmoking Tobacco: Every MknTgdmosvyqj982 Smokeless Tobacco: Never Comments:2 ppd x 20 yrs, 1 p pd x 40 yrs Alcohol UseStandard Drinks/WeekCommentsNot Currently0 (1 standard drink = 0.6 oz pure alcohol)PHQ-2AnswerDate RecordedPHQ-2 yjaqu0865Area Deprivation IndexAnswerDate RecordedNational Score (1-100), lower number is lower risk61 11/18/2022State Score (1-10), lower number is lower ydes8413Data from: https://www.neighborhoodatlas.medicine.[facility].edu/. Last address used for x[address] Sex and Gender InformationValueDate RecordedSex Assigned at JxrfrAdsn65/17/2023 11:44 AM EDTLegal YjuMxgw6612/06/2021 11:51 AM EDT Gender RuygmderYhup50/17/2023 11:44 AM EDTSexual AgyeqtfubkmBhwcgyfq10/17/2023 11:44 AM EDTdocumented as of this encounter Last Filed Vital Signs Vital SignReadingTime TakenCommentsBlood Kcjvbeca711/80106/20/2024 9:43 AM EST Bybnl482504/20/2025 9:43 AM ESTTemperature--Respiratory Dnzf213106/20/2024 9:43 AM ESTOxygen Rmfgnvarlj97%04/20/2025 9:43 AM ESTInhaled Oxygen Concentration-- Rpexmp13.6 kg (199 lb 11.8 oz)04/20/2025 9:43 AM ESTHeight--Body Mass Index28.66 01/18/2025 9:27 AM EDTdocumented in this encounter Progress Notes * Livier Barrera RN - 04/20/2025 9:48 AM EST AUA 5. Livier Barrera RN * Hyun Raza MD - 04/20/2025 9:44 AM EST Radiation Oncology - Follow Up Note PATIENT NAME: Vasyl Broussard PATIENT DIAGNOSIS: Prostate adenocarcinoma, initial PSA 9.95, biopsy [place] score 3 + 4 = 7 (grade [...] fractions ELAPSED TIME: 36 days. INTERVAL HISTORY: Patient has had increased urinary issues including hematuria, currently on antibiotic for UTI. Has also had anemia and is following urology. Has undergone cystoscopy in March. Mucosal changes without tumor. Biopsy without remarkable findings. He has also been worked up for some lower back pain with CT lumbar spine showing degenerative changes with associated stenosis without evidence of malignancy. PSA HISTORY: PSA (ng/mL) Date Value 01/12/2025 1.56 12/10/2023 0.43 05/11/2023 0.43 11/17/2022 0.50 PSA. (no units) Date Value 04/11/2025 3.43 05/09/2022 2.810 No Known Allergies HYDROcodone-acetaminophen (NORCO) 5-325 mg per tablet Take 1 tablet by mouth two times a day as needed for pain. lisinopril (ZESTRIL) 20 mg tablet Take 1 tablet by mouth once daily. pregabalin (LYRICA) 50 mg capsule Take 1 capsule by mouth two times a day. ergocalciferol, vitamin D2, (VITAMIN D2 ORAL) Take by mouth. aspirin 81 mg cap Take by mouth. pravastatin (PRAVACHOL) 10 mg tablet pravastatin 10 mg tablet amLODIPine (NORVASC) 10 mg tablet amlodipine 10 mg tablet clopidogrel (PLAVIX) 75 mg tablet Take 75 mg by mouth once daily. (Patient not taking: Reported on 04/20/2025) REVIEW OF SYSTEMS: D/N = 5-6/2-4 Hematuria: none Dysuria: none Incontinence: Yes Urgency: mild Catheter use: none Medications to aid urination: y - Total AUA Score: 5 Bowel movement frequency: 1/day Bowel movement quality: normal Blood per rectum: none PHYSICAL EXAM: BP 138/80 Pulse 87 Resp 16 Wt 90.6 kg (199 lb 11.8 oz) SpO2 97% BMI 28.66 kg/m?? KPS: 90 General Appearance: Alert and oriented. No acute distress. Rectal exam is deferred. ASSESSMENT/PLAN: Prostate adenocarcinoma, initial PSA 9.95, biopsy Nicola score 3 + 4 = 7 (grade group 2), clinical stage T1b, N0, M0, stage IIB [T1-T2, N0, M0, PSA <20, GG 2] (AJCC 8th ed.), s/pdefinitive radiation completed April 2022. 1. Prostate cancer. Patient has had several issues including hematuria current with UTI. However his PSA has climbed fairly significantly over the last 6 months. Given this I do feel further imaging with PSMA PET is indicated to rule out any extra prostatic findings. 2. Spinal stenosis, lumbar spine. Follows with neurosurgery Signed by: Hyun Raza MD cc: Shaikh Dotty [address] [place] [address] documented in this encounter Plan of Treatment NameTypePriorityAssociated DiagnosesOrder ScheduleNM PET/CT PROSTATE WHOLE BODY IMAGINGRadiologyRoutine Prostate cancer (HCC) Expected: 04/27/2025, Expires: 05/20/2026documented as of this encounter Procedures Procedure NamePriorityDate/TimeAssociated DiagnosisCommentsPSA (OUTSIDE)Routine 04/17/2025 PSA (OUTSIDE)Dovgyhp7404/11/2025 documented in this encounter Results * PSA (OUTSIDE) (04/17/2025)ComponentValueRef RangeTest MethodAnalysis Time Performed AtPathologist SignaturePSA.3.28Specimen (Source)Anatomical Location / LateralityCollection Method / VolumeCollection TimeReceived TimeBLOOD SPECIMEN / Wwsbser3004/17/2025 Narrative Authorizing ProviderResult TypeResult StatusCcf ProviderLABORATORYFinal Result * PSA (OUTSIDE) (04/11/2025)ComponentValueRef RangeTest MethodAnalysis Time Performed AtPathologist SignaturePSA.3.43Specimen (Source)Anatomical Location / LateralityCollection Method / VolumeCollection TimeReceived TimeBLOOD SPECIMEN / Zahebxu4304/11/2025 Narrative Authorizing ProviderResult TypeResult StatusCcf ProviderLABORATORYFinal Result documented in this encounter Visit Diagnoses Diagnosis Prostate cancer (HCC)- Primary Malignant neoplasm of prostate documented in this encounter Care Teams Team MemberRelationshipSpecialtyStart DateEnd Date Shaikh Storm MD [address] [place] [address] PCP - GeneralPrimary Care12/06/21 Ronaldo Alaniz MD [address] [place] [address] ReferringUrology12/06/21 Constance Durand LSW Social Ksegdi33/4/22documented as of this encounter
--- OUTSIDE RECORDS SUMMARY | 2025-05-03 10:27 | XMS_ITS | Encounter Summary ---
Author Organization [facility] Address [address] [place] [address] Care Team Providers Care Gas Operations Analyst Name Role Phone Shaikh AUBREE Storm Primary Care Provider [phone] Ronaldo Alaniz MD Unavailable [phone] Constance Durand Unavailable Unavailable Source Comments In the event this information is protected by the Federal Confidentiality of Alcohol and Drug AbusePatient Records regulations: The Federal rules restrict any use of the information to criminally investigate or prosecute any alcohol or drug abuse patient.[facility] Reason for Visit * ReasonCommentsNm Pet Request Encounter Details DateTypeDepartmentCare Team (Latest Contact Info)Rguhffdgbbl27/20/2025Telephone Cancer Appts [facility] [place] [address] Hyun Raza MD [facility] [place] [address] Nm Pet Request Social History Tobacco UseTypesPacks/DayYears UsedDateSmoking Tobacco: Every PqoXmhbqorruf194 Smokeless Tobacco: Never Comments:2 ppd x 20 yrs, 1 p pd x 40 yrs Alcohol UseStandard Drinks/WeekCommentsNot Currently0 (1 standard drink = 0.6 oz pure alcohol)PHQ-2AnswerDate RecordedPHQ-2 lyhmw2915Area Deprivation IndexAnswerDate RecordedNational Score (1-100), lower number is lower risk61 11/18/2022State Score (1-10), lower number is lower ofhn0583Data from: https://www.neighborhoodatlas.[facility]/. Last address used for [address]/18/2022Sex and Gender InformationValueDate RecordedSex Assigned at EcnmgCcod74/17/2023 11:44 AM EDTLegal BpyBisy4012/06/2021 11:51 AM EDT Gender HdgswsiyIxys89/17/2023 11:44 AM EDTSexual TixqansyankYptgncwp55/17/2023 11:44 AM EDTdocumented as of this encounter Miscellaneous Notes * Telephone Encounter - Enedina Ramos - 05/02/2025 10:30 AM EST Per message from Princess, this is being worked on * Telephone Encounter - Enedina Ramos - 05/01/2025 11:07 AM EST HI there just wondering if there is any kind of update on this. Thanks so much * Telephone Encounter - Princess Humphries, MEHNAZ - 04/20/2025 10:27 AM EST PSMA Comments for Blueprint Clerk: Xenia Will the patient need anesthesia: no Primary Insurance: [employer] [id number] Diagnosis: Prostate cancer (HCC) [C61] Pathology: Prostate adenocarcinoma, initial PSA 9.95, biopsy Nicola score 3 + 4 = 7 (grade group 2), clinical stage T1b, N0, M0, stage IIB Unfavorable Intermediate Risk Group Labs: 01-12-25 PSA 1.56 7-11-24 PSA 0.43 05-11-23 PSA 0.43 Clinical Notes Reviewed: 04-20-25 Office note blank, 01-18-25 Rad Onc Date of last: 03/18/2022- 04/23/2022 pelvis/ prostate 7000 cGy in 28 fractions, Additional Information/Imaging: N/A Is this the first PSMA PET:Yes (Please schedule as requested by patient or office) Positive Scan Schedule as place of last (DOS) [facility] or Region Negative Scan Schedule at ANY PSMA site requested Isotope used: Region F-18 flotufolastat,18F flotufolastat Posluma GA68 PSMA PET 49117/LOCAMETZ (Gallium GA-68 Gozetotide) (6 mCi) A9800 - Posluma (Flotufolastat F18) (8mCi), A9608 - Region Auth#: Date Range: NPI: Bob Raza [id number] Member ID: [employer] [id number] Site/Contact: Case/Ref#: Notes: 05-02 form and clinical faxed to [phone] for review Route to or Requested Scheduling Pool: P PET PACKAGING LINE ATTENDANT , P [facility] CLERICAL POOL([place]), [facility] * Telephone Encounter - Enedina Ramos - 04/20/2025 10:25 AM EST This form is used for MAIN CAMPUS APPOINTMENTS ONLY. Is this request for a [facility] [place] PET scan appointment? Yes: Chief Of Service: Enedina Ramos Who do we call to schedule this appointment? Other Contact: PSMA Pet to be done at [facility]. Route to Lazara Leyva for scheduling Requesting Staff Jose Raza Area Code + Phone/Pager: [phone] PET Orders (A delay in scheduling will result if the orders are not present at time of review): Internal ADDITIONAL ACTION MAY BE REQUIRED IF PATIENTS OON INSURANCE OR SELF PAY COVERAGE HAS NOT BEEN CLEARED FOR REQUESTED APPOINTMENT. Scheduling: ROBERT: As soon as insurance will allow What account will this PET appointment be linked to? P/F Type of PET: Oncology: Are there additional diagnostic CT scans required to be done at time of PET scan? No Is the request for a PET MR ? No What account will diagnostic testing appointment be linked to? P/F Will the patient need anesthesia? NO Send requests to P [facility] documented in this encounter Plan of Treatment Not on file documented as of this encounter Visit Diagnoses Not on filedocumented in this encounter Care Teams Team MemberRelationshipSpecialtyStart DateEnd Date Shaikh Storm MD [address] [place] [address] PCP - GeneralPrimary Care12/06/21 Ronaldo Alaniz MD [address] [place] [address] ReferringUrology12/06/21 Constance Durand LSW Social Qxlcax73/4/22documented as of this encounter
--- OUTSIDE RECORDS SUMMARY | 2025-05-03 10:27 | XMS_ITS | Clinical Summary ---
Author Organization [facility] Address [address] [place] [address] Care Team Providers Care Tax Investigator Name Role Phone Brian Avalos MD Primary Care Provider [phone] Kayley Ward BELT NOTCHER Unavailable [phone] Allergies Active AllergyReactionsCriticalityNoted DateCommentsEzetimibeGI intolerance 04/27/20237012KnelwvbChqwfWspgok60/30/2023 Muscle/Joint Pain Other Reaction(s): Other Muscle/Joint Pain ??Other Reaction(s): lipitor Medications MedicationSigDispense QuantityRefillsLast FilledStart DateEnd DateStatus pravastatin (Pravachol) 40 MG tablet Take 40 mg by mouth at bedtime.Active ergocalciferol (Vitamin D-2) 1.25 MG (06478 UT) capsule Take 1.25 mg by mouth [...] nuclear cataract of left eye 09/28/2023Nuclear senile /29/2024Elevated random blood glucose level 09/28/2023 Assessment & Plan (09/28/2023 9:46 AM EDT): Elevated random blood glucose levels when he had labs earlier this year. Check A1C. Unintentional weight qrijit1509/28/2023 Assessment & Plan (09/28/2023 9:45 AM EDT): Weight loss of 7 lbs in 3 months. Reports feeling tired. Check TSH. Gastroesophageal reflux disease without jukntftvdon78/29/2024 Assessment & Plan (01/20/2024 6:53 PM EDT): Taking Omeprazole 40mg Reports he is doing very well. Denies complaints. Assessment & Plan (09/28/2023 9:47 AM EDT): Reports metallic taste in mouth, early satiety and mild abdominal discomfort. Trial of Omerpazole. Follow up in 2 months. Lumbar wjfbpimupenmt66/03/2024Lumbar stenosis with neurogenic claudication 09/02/2023 Assessment & Plan (07/13/2024 1:50 PM EST): Following with Pain Management for Lumbar Stenosis. Recently reduced dosage of [place]. Feels symptoms are well controlled. Continue current regimen as directed by PM. Assessment & Plan (12/08/2023 11:52 AM EDT): S/p lumbar surgery. Well healed surgical scars. Pain is well controlled Assessment & Plan (09/28/2023 9:45 AM EDT): Recommended surgery by NS. He is planning to go ahead with it. Pain is persistent, unchanged. Synovial cyst of lumbar facet joint09/02/2023oronary artery disease involving [place] coronary artery of [place] heart without angina xmnfyuls34/29/2024 Assessment & Plan (01/20/2024 6:42 PM EDT): [...] Chronic right-sided low back pain with right-sided vbpulnfd94/29/2024Tobacco abuse06/29/2023 Assessment & Plan (01/20/2024 6:54 PM [...] Chronic bilateral low back pain with bilateral mifufzxj77/29/2024 Assessment & Plan (06/29/2023 7:14 PM EST): Chronic LBP with claudication on ambulation. His symptoms were presumed to be multifactorial and claudication resulting from vascular insufficiency along with neurological claudication. His left LE pain has sig improved since vascular surgery in 03/23. He continues to exp pain in low back, with radiation to b/l hips on prolonged ambulation. Patient is on [place] for chronic pain. He was evaluated by NS at [facility] and it seemed like they were concerned about possible opioid induced hyperalgesia. Patient has been trying to wean himself off of [place] but if he does not use it [...] foraminal stenosis Will refer to NS at [facility]. CVA (cerebral vascular accident)06/04/2023 Assessment & Plan (06/29/2023 6:57 PM EST): Prior hx of ischemic CVA. No residual deficit. On ASA, statin. Carotid artery uwqcgav4806/04/2023AD (peripheral artery disease)06/04/2023 Assessment & Plan (09/28/2023 9:43 AM EDT): On ASA, Plavix and statin. Left leg revascularization 2022 at [facility]. Leg pain has improved and is doing well Heart cebtyii0606/04/2023PH (benign prostatic hyperplasia)06/04/2023History of ND (myocardial infarction)06/04/2023HLD (hyperlipidemia)04/27/2023 Assessment & Plan (07/13/2024 [...] surgery. Check Lipid Panel in one month. Ugzcvlidjccr67/27/2023 Assessment & Plan (07/13/2024 1:50 PM EST): [...] to r/o heart block, TSH. Peripheral vascular oeqeodm1004/27/2023 Assessment & Plan (06/29/2023 7:01 PM EST): Recent revascularization 03/23 - with excellent results and improved LLE pain. On ASA, plavix and statin. No ulcers/rest pain Assessment & Plan (04/27/2023 12:00 PM EST): S/p revascularization, percutaneous and stent placed last month in March. Doing well. No active complaints to offer Follows up with Dr Justin. H/O prostate mpeggv7504/27/2023 Assessment & Plan (06/29/2023 7:06 PM EST): S/p radiation for it. PSA Normal 04/[address] Alaniz and Oncology. Vleiyifyxma74/27/2023 Assessment & Plan (04/27/2023 12:03 PM EST): Reports bradycardia with fatigue and HR in low 40s sometimes. He has been skipping atenolol every now and then because of it. Will discontinue Atenolol Check TSH, EKG Prostate xxhmbr2404/27/2023Stage 3 chronic kidney jqtlnqh5411/19/2022 Assessment & Plan (07/13/2024 1:50 PM EST): [...] DateDiagnosed DateResolved DatePeripheral arterial disease Encounters DateTypeDepartmentCare ZtciNqiqnmaheyf54/23/2025linisync Result Encounter [facility] Unsolicited Provider, Generic External Data 02/13/2025linisync Result Encounter [facility] External Department Unsolicited Provider, Generic External Data from Last 3 Months Immunizations ImmunizationAdministration DatesNext DueModerna SARS-CoV-2 Pqwragblxpw33/25/2021 Family History Medical HistoryRelationNameCommentsDiabetesFatherHeart diseaseMotherRelationName StatusCommentsFatherDeceasedMotherDeceasedcataract surgery Social History Tobacco UseTypesPacks/DayYears UsedDateSmoking Tobacco: Every DayCigarettes0.365 Passive Smoke Exposure: CurrentSmokeless Tobacco: Never Tobacco Cessation:Ready to Q uit: Not Asked; Counseling Given: Not Answered Comments:Pt down to 4 per day, required to quit smoking before back surgery could be done. Alcohol UseStandard Drinks/WeekCommentsNot Currently0 (1 standard drink = 0.6 oz pure alcohol)[id number] Health LiteracyAnswerDate RecordedHow often do you need to have someone help you when you read instructions, pamphlets, or other written material from your doctor or pharmacy?Never01/20/2024Social Connection and Isolation PanelAnswerDate RecordedIn a typical week, how many times do you talk on the phone with family, friends, or neighbors?Patient nexqyomq54/21/2024How often do you get together with friends or relatives?Patient bzitlvtr14/21/2024 How often do you attend anabaptism or mu-ism services?Patient unbnkavk69/21/2024 Do you belong to any clubs or organizations such as anabaptism groups, unions, fracoUrbanize or athletic groups, or school groups?Patient inknficj33/21/2024How often do you attend meetings of the clubs or organizations you belong to?Patient kcbgynyw74/21/2024re you , , , , never , [...] like food, housing, medical care, and heating?Patient dszbwtmu96/21/2024HQ-2AnswerDate Recorded Patient Health Questionnaire-2 Pzezb785Exercise Vital SignAnswerDate RecordedOn average, how many days per week do you engage in moderate to strenuous exercise (like a brisk walk)?Patient ekkbcdms76/21/2024On average, how many minutes do you engage in exercise at this level?Patient ptimines02/21/2024 Hunger Vital SignAnswerDate RecordedWithin the past 12 months, you worried that your food would run out before you got the money to buymore.Patient declined 01/20/2024Within the past 12 months, the food you bought just didn't last and you didn't have money to get more.Patient fkqzegnd77/21/2024RAPARE - TransportationAnswerDate RecordedIn the past 12 months, [...] were you homeless or living in a correction (including now)?No 01/20/2024Sex and Gender InformationValueDate RecordedSex Assigned at BirthNot on fileLegal NyfTpxs9808/13/2022 11:33 PM EDTGender IdentityNot on fileSexual OrientationNot on file Last Filed Vital Signs Vital SignReadingTime TakenCommentsBlood Qjfiekrg868/70007/13/2024 1:16 PM EST Ivmwx436307/13/2024 1:16 PM SMGMxeztxlzwbw63.5 ??C (97.7 ??F)07/13/2024 1:16 PM ESTRespiratory Osgg972807/13/2024 1:16 PM ESTOxygen Rtxxnevbzw45%07/13/2024 1:16 PM ESTInhaled Oxygen Concentration--Zejscm86.2 kg (201 lb)07/13/2024 1:16 PM EST Gffzpg796.8 cm (5' 10 )07/13/2024 1:16 PM ESTBody Mass Index28.8407/13/2024 1:16 PM EST Plan of Treatment Not on file Procedures Procedure NamePriorityDate/TimeAssociated DiagnosisCommentsCT LUMBAR SPINE WO IV YZEJLPNB44/23/2025 11:31 AM EDT TBH URINE T PROTEIN CREAT GYXWBDzjsgac18/15/2025 12:30 PM EDT HM[facility] URINALYSIS, WITH WNVCREGLELALcqjmvi88/15/2025 12:30 PM EDT [facility] PTH, NKPMFMXOHOGKDHNihabmp48/15/2025 10:59 AM EDT TBH VITAMIN D 25 JZOhaqkcd52/15/2025 10:59 AM EDT [facility] MPWJFFSWIrdviio60/15/2025 10:59 AM EDT [facility] IRON AND PQWVEgnclvb00/15/2025 10:59 AM EDT ALL QTIEGZKRYLadhrve06/15/2025 10:59 AM EDT ALL URIC MDJBYjosmpe57/15/2025 10:59 AM EDT ALL RENAL FUNCTION JRJFFWcfpcug93/15/2025 10:59 AM EDT HM[facility] CBC WITH PLATELET NO GYGSUUACOHYALduhttf43/15/2025 10:59 AM EDT from Last 3 Months Results * CT lumbar spine wo IV contrast (02/21/2025 11:31 AM EDT)Anatomical Region LateralityModalitySpine, L-spineComputed TomographySpecimen (Source)Anatomical Location / LateralityCollection Method / VolumeCollection TimeReceived Time 02/21/2025 11:31 AM EDT Narrative 02/21/2025 11:34 AM EDT [facility] ?[address] ? [place] [address] ? CT Scan Report ? Signed ? Patient: YESENIA BROUSSARD ?MR#: [id number] ?? : 1945 ?Acct:[id number] ?? Age/Sex: 79 / M ?ADM Date: 02/21/25 ?? Loc: CT ? Attending Dr: Loco Farias BELT NOTCHER ? Ordering Physician: Loco Farias NP ?? Date of Service: 02/21/25 ?? Procedure(s): CT lumbar spine wo con ?? Accession Number(s): [id number] ? cc: Shaikh Joanna Storm ? [facility] ? [address] ? [place] [address] ? Patient Name: ?? YESENIA BROUSSARD ? MRN: [facility]:[id number] ? date: 1945 ?Sex: M ?? Assigned Patient Location: CT ?? Current Patient Location: CT ?? Accession/Order Number: [id number] ?? Exam Date: 02/21/2025 ??10:02 ?Report Date: 02/21/2025 ??11:31 ? At the request of: ?? LOCO ??DINORA ??BELT NOTCHER ? Procedure: ??CT lumbar spine wo con [...] M.D. ??02/21/2025 11:31 AM ? Dictation Location: [place] [address] ? Electronically authenticated by: [id number] ??Y ?? Date: 02/21/2025 ??11:31 ? Dictated By: ?Lorelei Waite M.D. ? Signed By: ?02/21/25 1134 ? DD/ 1131 ? TD/TT: ? Sr. Merchandise Planner: Procedure Note Radiology, Radiologist, - 02/21/2025 [place] [address] CT Scan Report Signed Patient: YESENIA BROUSSARD R#: [id number] : 6Acct:[id number] Age/Sex: 79 / MADM Date: 02/21/25 Loc: CT Attending Dr: Loco Farias NP Ordering Physician: Loco Farias NP Date of Service: 02/21/25 Procedure(s): CT lumbar spine wo con Accession Number(s): [id number] cc: Shaikh Joanna Storm [address] [address] Patient Name: YESENIA BROUSSARD MRN: [id number] date: 1945 Sex: M Assigned Patient Location: CT Current Patient Location: CT Accession/Order Number: [id number] Exam Date: 02/21/2025 10:02 Report Date: 02/21/2025 [...] Waite M.D. 02/21/2025 11:31 AM Dictation Location: [place] [address] Electronically authenticated by: [id number] Y Date: 1:31 Dictated By: Lorelei Waite M.D. Signed By:02/21/25 1134 DD/ 1131 TD/TT: Sr. Merchandise Planner: Authorizing ProviderResult TypeResult StatusGeneric External Data ProviderIMG CT PROCEDURESFinal Result * (ABNORMAL) [facility] URINE T PROTEIN CREAT RATIO (02/13/2025 12:30 PM EDT)Component ValueRef RangeTest MethodAnalysis TimePerformed AtPathologist SignatureTOTAL PROTEIN URINE NPAZFC066.8(H)<=11.9 mg/dLTBHCREATININE URINE IZJDFN939.6120.00 - 300.00 mg/dLTBHPROTEIN CREATININE RATIO URINE0.69TBHSpecimen (Source) Anatomical Location / LateralityCollection Method / VolumeCollection Time Received Time02/13/2025 12:30 PM EDT02/13/2025 12:45 PM EDT Narrative CLINISYNC - 02/13/2025 2:58 PM EDT Authorizing ProviderResult TypeResult StatusGeneric External Data Provider CLINISYNCFinal ResultPerforming OrganizationAddressCity/State/ZIP CodePhone Number [facility] * (ABNORMAL) [facility] URINALYSIS, WITH MICROSCOPIC (02/13/2025 12:30 PM EDT) ComponentValueRef RangeTest MethodAnalysis TimePerformed AtPathologist SignatureCOLOR URINELT. YELLOWYELLOWTBHCLARITY URINESL CLOUDYCLEARTBHSPECIFIC GRAVITY URINE1.0251.005 - 1.025TBHPH URINE5.55.0 - 9.0TBHPROTEIN YJHRV289(A) NEG/TRACE mg/dLTBHGLUCOSE URINE UANEGATIVENEGATIVE mg/dLTBHBILIRUBIN URINE SMALL(A)NEGATIVETBHKETONES URINETRACE(A)NEGATIVE mg/dLTBHBLOOD URINETRACE-I NEGATIVETBHNITRITE URINENEGATIVENEGATIVETBHUROBILINOGEN URINE0.20.2 - 1.0 EU/dLTBHLEUKOCYTE ESTERASE URINELARGE(A)NEGATIVETBHTBH KCF41-21(A)NONE SEEN #/HPFTBHTBH RBC0-20 - 2 #/HPFTBHBACTERIA URINESMALL(A)NONE SEEN #/HPFTBHMUCUS URINENONE SEENNONE SEENTBHSQUAMOUS EPITHELIAL CELL URINERARENONE/RARE #/LPFTBH CRYSTALS SEEN?None SeenNone Seen #/HPFTBHCAST SEEN?NONE SEENNONE SEEN #/LPFTBH Specimen (Source)Anatomical Location / LateralityCollection Method / Volume Collection TimeReceived Time02/13/2025 12:30 PM EDT02/13/2025 12:45 PM EDT Narrative CLINISYNC - 02/13/2025 1:32 PM EDT Authorizing ProviderResult TypeResult StatusGeneric External Data Provider CLINISYNCFinal ResultPerforming OrganizationAddressCity/State/ZIP CodePhone Number [facility] * [facility] VITAMIN D 25 [place] [...] ResultPerforming OrganizationAddressCity/State/ZIP CodePhone Number CLINISYNC TB * [facility] IRON AND TIBC (02/13/2025 10:59 AM EDT)ComponentValueRef RangeTest MethodAnalysis TimePerformed AtPathologist SignatureTBH IRON80.065.0 - 175.0 ug/dLTBHTBH TOTAL IRON BINDING GCGCRGAN628.0250.0 - 450.0 ug/dLTBHTBH PERCENT IRON FKUZSIKPSR74.6%TBHSpecimen (Source)Anatomical Location / Laterality Collection Method / VolumeCollection TimeReceived Time02/13/2025 10:59 AM EDT 02/13/2025 11:03 AM EDT Narrative CLINISYNM - 02/13/2025 12:10 PM EDT Authorizing ProviderResult TypeResult StatusGeneric External Data Provider CLINISYNCFinal ResultPerforming OrganizationAddressCity/State/ZIP CodePhone Number CLINISYNC TB * (ABNORMAL) [facility] PTH, INTRAOPERATIVE (02/13/2025 10:59 AM EDT)ComponentValueRef RangeTest MethodAnalysis TimePerformed AtPathologist SignaturePTH, MOROVY03(A) 15 - 65 pg/mLTBHComment: Performed at: ?? - [facility] ??[id number] Can Marker: Rojelio Nelson PhD, Phone: ??[phone] Specimen (Source)Anatomical Location / LateralityCollection Method / Volume Collection TimeReceived Time02/13/2025 10:59 AM EDT02/13/2025 11:03 AM EDT Narrative CLINISYNM - 02/14/2025 10:09 AM EDT Authorizing ProviderResult TypeResult StatusGeneric External Data Provider CLINISYNCFinal ResultPerforming OrganizationAddressCity/State/ZIP CodePhone Number [facility]NC [facility] * (ABNORMAL) [facility] CBC WITH PLATELET NO DIFFERENTIAL (02/13/2025 10:59 AM EDT) ComponentValueRef RangeTest MethodAnalysis TimePerformed AtPathologist SignatureTBH WBC8.04.0 - 11.0 10 3/uLTBHTBH RBC4.18(L)4.70 - 6.10 10 6/uLTBH TBH HGB12.9(L)14.0 - 18.0 g/dLTBHTBH HCT39.3(L)42.0 - 54.0 %TBHTBH MCV94.080.0 - 94.0 fLTBHTBH MCH30.925.9 - 34.0 pgTBHTBH MCHC32.829.9 - 35.2 g/dLTBHTBH RDW 13.611.0 - 15.0 %TBHTBH FUE561257 - 450 10 3/uLTBHTBH MPV10.39.5 - 13.5 fLTBH Specimen (Source)Anatomical Location / LateralityCollection Method / Volume Collection TimeReceived Time02/13/2025 10:59 AM EDT02/13/2025 11:03 AM EDT Narrative CLINISYNM - 02/13/2025 11:10 AM EDT Authorizing ProviderResult TypeResult StatusGeneric External Data Provider CLINISYNCFinal ResultPerforming OrganizationAddressCity/State/ZIP CodePhone Number [facility] * [facility] FERRITIN (02/13/2025 10:59 AM EDT)ComponentValueRef RangeTest Method Analysis TimePerformed AtPathologist CrusgeiwsACPBBMJJ52.026.0 - 388.0 ng/mL TBHSpecimen (Source)Anatomical Location / LateralityCollection Method / Volume Collection TimeReceived Time02/13/2025 10:59 AM EDT02/13/2025 11:03 AM EDT Narrative CLINISYNC - 02/13/2025 1:10 PM EDT Authorizing ProviderResult TypeResult StatusGeneric External Data Provider CLINISYNCFinal ResultPerforming OrganizationAddressCity/State/ZIP CodePhone Number [facility] * ALL URIC ACID (02/13/2025 10:59 AM EDT)ComponentValueRef RangeTest Method Analysis TimePerformed AtPathologist SignatureURIC ACID6.63.5 - 7.2 mg/dLTBH Specimen (Source)Anatomical Location / LateralityCollection Method / Volume Collection TimeReceived Time02/13/2025 10:59 AM EDT02/13/2025 11:03 AM EDT Narrative CLINISYNC - 02/13/2025 11:39 AM EDT Authorizing ProviderResult TypeResult StatusGeneric External Data Provider CLINISYNCFinal ResultPerforming OrganizationAddressty/State/ZIP CodePhone Number [facility] * (ABNORMAL) ALL RENAL FUNCTION PANEL (02/13/2025 10:59 AM EDT)ComponentValueRef RangeTest MethodAnalysis TimePerformed AtPathologist VduthrimaVYKRNC580594 - 145 mmol/LTBHPOTASSIUM5.2(H)3.5 - 5.1 mmol/YLQMXAXLDUHN04122 - 107 mmol/LTBH CARBON ZUIGRCF30.621.0 - 32.0 mmol/LTBHANION GAP14.3SOOLAOHAOK43634 - 106 mg/dLTBHBLOOD UREA FNBXQSEH71.0(H)7.0 - 18.0 mg/dLTBHCREATININE1.93(H)0.70 - 1.30 mg/dLTBHTBH EGFR-AF HKDWMBZZ86(L)>=60 mL/min/1.73m 2TBHTBH EGFR-NON AF SEWFZZJH34(L)>=60 mL/min/1.73m 2TBHBUN CREATININE RATIO14.2JIZUMJXYYJ5.28.5 - 10.1 mg/dLTBHPHOSPHORUS3.92.6 - 4.7 mg/dLTBHALBUMIN LEVEL3.83.4 - 5.0 g/dLTBH Specimen (Source)Anatomical Location / LateralityCollection Method / Volume Collection TimeReceived Time02/13/2025 10:59 AM EDT02/13/2025 11:03 AM EDT Narrative CLINISYNC - 02/13/2025 11:39 AM EDT Authorizing ProviderResult TypeResult StatusGeneric External Data Provider CLINISYNCFinal ResultPerforming OrganizationAddressty/State/ZIP CodePhone Number [facility] * ALL MAGNESIUM (02/13/2025 10:59 AM EDT)ComponentValueRef RangeTest Method Analysis TimePerformed AtPathologist SignatureMAGNESIUM2.01.8 - 2.4 mg/dLTBH Specimen (Source)Anatomical Location / LateralityCollection Method / Volume Collection TimeReceived Time02/13/2025 10:59 AM EDT02/13/2025 11:03 AM EDT Narrative CLINISYNC - 02/13/2025 11:39 AM EDT Authorizing ProviderResult TypeResult StatusGeneric External Data Provider CLINISYNCFinal ResultPerforming OrganizationAddressCity/State/ZIP CodePhone Number [facility] from Last [address] [place] [address] Care Teams Team MemberRelationshipSpecialtyStart DateEnd Date Brian Avalos MD PCP - GeneralFahily Medicine01/12/24 Kayley Ward NP Nurse PractitionerFamily Medicine01/12/24
--- OUTSIDE RECORDS SUMMARY | 2025-05-03 10:27 | XMS_ITS | Encounter Summary ---
Author Organization [facility] Address [address] [place], [place] [address] Care Team Providers Care Digital Strategist Senior Manager Name Role Phone Shaikh AUBREE Storm Primary Care Provider [phone] Ronaldo Alaniz MD Unavailable [phone] Constance Durand Unavailable Unavailable Source Comments In the event this information is protected by the Federal Confidentiality of Alcohol and Drug AbusePatient Records regulations: The Federal rules restrict any use of the information to criminally investigate or prosecute any alcohol or drug abuse patient.[facility] Encounter Details DateTypeDepartmentCare Team (Latest Contact Info)Ugjmaczodmc04/01/2025H&P External-NonCCF Provider, External, PAPat Do not enter address information under generic External Provider. Social History Tobacco UseTypesPacks/DayYears UsedDateSmoking Tobacco: Every IcgLddbupsxan937 Smokeless Tobacco: Never Comments:2 ppd x 20 yrs, 1 p pd x 40 yrs Alcohol UseStandard Drinks/WeekCommentsNot Currently0 (1 standard drink = 0.6 oz pure alcohol)PHQ-2AnswerDate RecordedPHQ-2 ouujm4465Area Deprivation IndexAnswerDate RecordedNational Score (1-100), lower number is lower risk61 11/18/2022State Score (1-10), lower number is lower blrn4223Data from: https://www.neighborhoodatlas.medicine.[employer] [facility].edu/. Last address used for [address] [place] [address]/18/2022Sex and Gender InformationValueDate RecordedSex Assigned at OgbqcXkqi70/17/2023 11:44 AM EDTLegal UpcVgtp2212/06/2021 11:51 AM EDT Gender VvqhvanvEesn60/17/2023 11:44 AM EDTSexual DanhhslomseQuxjlpil60/17/2023 11:44 AM EDTdocumented as of this encounter Plan of Treatment Not on file documented as of this encounter Visit Diagnoses Not on filedocumented in this encounter Care Teams Team MemberRelationshipSpecialtyStart DateEnd Date Shaikh Storm MD [address] [place] [address] PCP - GeneralPrimary Care12/06/21 Ronaldo Alaniz MD [address] [place] [address] ReferringUrology12/06/21 Constance Durand LSW Social Nynzwq67/4/22documented as of this encounter
--- OUTSIDE RECORDS SUMMARY | 2025-05-03 10:27 | XMS_ITS | Clinical Summary ---
Author Organization [facility] Address [address] [place] [address] Phone Care Team Providers Care Trichologist Name Role Phone Shaikh AUBREE Storm Primary Care Provider [phone] Allergies Active AllergyReactionsCriticalityNoted DateCommentsEzetimibeGI intolerance, Nausea/qpcstohfEbwh62/27/1350Zzsgajh-Ghv-Gmw Reductase InhibitorsOtherMedium 03/30/2023 Muscle/Joint Pain Medications MedicationSigDispense QuantityRefillsLast FilledStart DateEnd DateStatus aspirin 81 mg EC tablet Take 1 tablet (81 mg) by mouth once daily.Active ergocalciferol (Vitamin D-2) 1.25 MG (29903 UT) capsule Take 1 capsule (1,250 mcg) by mouth 1 (one) time per week.Active HYDROcodone-acetaminophen ([place]) 7.5-325 mg tablet Take 1 tablet by [...] mouth once daily at bedtime. 90 tablet 304/25/472325/6Active valsartan (Diovan) 80 mg tablet Indications:Hypertension, unspecified typeTake 1 tablet (80 mg) by mouth once daily. 90 tablet 305/08/297855/6Active Active Problems ProblemNoted DateDiagnosed DateBMI 28.0-28.9,adult08/18/2023 Assessment & Plan (08/30/2024 1:10 PM EDT): Reviewed the merits of healthy lifestyle choices on overall cardiovascular health. ASHD (arteriosclerotic heart disease)08/18/2023 Assessment & Plan (08/30/2024 1:09 PM EDT): Mid 90s Inferior STEMI in [place] Jun 2023 MPI No ischemia/no infarct TID ration 1.10 EF 58% Current daily activity > 4 METs without concerning symptoms Stxyypo6806/04/2023PH with urinary ssqalzufgfq73/04/2024hronic pain disorder 06/04/2023hronic upwuvxnyidu24/04/2024Erectile vwlhrflkhiv21/04/2024Feeling of incomplete bladder izmdkavo45/04/2024Gross kikbdpywi92/04/2024Kidney disease 06/04/2023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)06/04/20237369Bxezhimr25/04/2024rostate jnqdat0206/04/2023 Recurrent UTI06/04/2023Umbilical rvbhrj0506/04/2023UTI ggtyajfc82/04/2024arotid artery yhwggrp4206/04/2023 Assessment & Plan (08/30/2024 1:10 PM EDT): Bilateral carotid endarterectomy Managed by local vascular team Chest gpzafhzg10/04/2024VD (peripheral vascular disease)06/04/2023 Assessment & Plan (08/30/2024 1:10 PM EDT): 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 Continued every day tobacco use. Have reviewed the negative cardiovascular impact of nicotine. Continues to decline pharmacological assistance. Mvxhistfinh52/27/2023 Overview (06/04/2023): Last Assessment & Plan: Reports bradycardia with fatigue and HR in low 40s sometimes. He has been skipping atenolol every now and then because of it. Will discontinue Atenolol Check TSH, EKG H/O prostate kcvllx4304/27/2023HLD (hyperlipidemia)04/27/2023 Overview (06/04/2023): Last Assessment & Plan: Recently started on Pravastatin by Vascular surgery. Check Lipid Panel in one month. Assessment & Plan (08/30/2024 1:09 PM EDT): Moderate intensity statin September 2023 LDL 81, HDL 38 Eifwnquaqedj38/27/2023 Overview (06/04/2023): Last Assessment & Plan: Well controlled on current regimen. Has noted lately that his HR is sometimes in the low 40,50 range while onatenolol. At the same he has noticed fatigue too. Discontinue Atenolol. Monitor BP at home w.o it. Will order an EKG to r/o heart block, TSH. Assessment & Plan (08/30/2024 1:09 PM EDT): Optimal in office Prostate tnoomn3504/27/2023hronic kidney disease, stage 3b11/19/2022 Overview (06/04/2023): Last Assessment & Plan: CKD 3, due to HTN. Monitor. Cr stable, no change C.w treatment for HTN. Follows Dr Thakkar for CKD. Assessment & Plan (08/30/2024 1:10 PM EDT): Follows routinely with nephrology September 2024 creatinine 1.7 Resolved Problems ProblemNoted DateDiagnosed DateResolved DateHeart Encounters DateTypeDepartmentCare AwkhVqjfvipvfvy69/09/2025Telephone [facility] [address] [facility] [address] [place] [address] Lissy Kirkpatrick LPN Pre-op Clearance; med holdfrom Last 3 Months Immunizations ImmunizationAdministration DatesNext DueModerna SARS-CoV-2 Koczqcqovzb34/25/2021 Family History Medical HistoryRelationNameCommentsNo Known ProblemsFatherHeart attackMother Cynthia StutzelRelationNameStatusCommentsFatherMotherLorraine Stutzel Social History Tobacco UseTypesPacks/DayYears UsedDateSmoking Tobacco: Every DayCigarettes0.560 Smokeless Tobacco: Never Tobacco Cessation:Ready to Q uit: No; Counseling Given: Yes Comments:Trying to quit Alcohol UseStandard Drinks/WeekCommentsNever0 (1 standard drink = 0.6 oz pure alcohol)Sex and Gender InformationValueDate RecordedSex Assigned at BirthMale 06/09/2023 3:20 PM ESTLegal DsoInug20/26/2022 4:46 PM ESTGender IdentityMale 06/09/2023 3:20 PM ESTSexual KfytnutqmbsYqpbblhi89/09/2024 3:20 PM EST Last Filed Vital Signs Vital SignReadingTime TakenCommentsBlood Tybyzpqi076/6804 11:30 AM EDT Tldsv6271 11:16 AM EDTTemperature--Respiratory Rate--Oxygen Saturation-- Inhaled Oxygen Concentration--Ykofsz27.3 kg (199 lb)08/30/2024 11:16 AM EDT Xboxoz023.8 cm (5' 10 )08/30/2024 11:16 AM EDTBody Mass Index28.55008/30/2024 11:16 AM EDT Plan of Treatment DateTypeDepartmentCare Team (Latest Contact Info)Kxxtgsjvyct72/01/2026 10:00 AM EDTOffice Visit [facility] [address] [facility] [address] [place] [id number] Chaim Grayson, [address] [facility] [address] [place], [place] [id number] Health MaintenanceDue DateLast DoneCommentsLipid Panel1945Medicare Annual Wellness Visit (AWV)1945Hepatitis C Pzsmguwmi92/24/1964CKD: Urine Protein Ebymfafwg48/24/1965Pneumococcal Vaccine (1 of 2 - PCV)1964DTaP/Tdap/Td Vaccines (1 - Tdap)1967Lung Cancer Icmceejtv72/24/1996Zoster Vaccines (1 of 2)1995RSV High Risk: (Elderly (60+) or Population) (1 - 1-dose 75+ series)2020Influenza Vaccine (#1)5COVID-19 Vaccine (3 - 2024- season)502/, 06/25/2020HIB VaccinesAged OutNo longer eligible based on [...] patient's age to complete this topic Insurance * Guarantor: Vasyl Broussard TypeRelation to PatientDate of BirthPhone Billing AddressPersonal/EbvbtyCtgm59/24/1946 [address] [address] Care Teams Team MemberRelationshipSpecialtyStart DateEnd Date Shaikh Storm MD PCP - GeneralInternal Medicine06/04/23
--- OUTSIDE RECORDS SUMMARY | 2025-05-03 10:27 | XMS_ITS | Clinical Summary ---
Author Organization [facility] Address [id number] [place] [address] Care Team Providers Care Third Shift Lieutenant Name Role Phone Unavailable Primary Care Provider Unavailabl e Social History Tobacco UseTypesPacks/DayYears UsedDateSmoking Tobacco: Never Assessed CommentsUnknownSex and Gender InformationValueDate RecordedSex Assigned at Not on fileLegal OkqWzmfyr79/23/2024 2:14 PM ESTGender IdentityNot on fileSexual OrientationNot on file Plan of Treatment Health MaintenanceDue DateLast DoneCommentsDepression Qmncqencm98/24/1958Tobacco Vprzhalkq29/24/1958DTaP,Tdap and Td Vaccines (1 - Tdap)1964Zoster (Shingles) Vaccine (1 of 2)1995Fall Risk Gmwvuzjvv66/24/2011RSV ( or age 60+ yrs) (1 - 1-dose 75+ series)2020Influenza Hgurwbb6001/30/2025 Medical Devices Not on file Insurance
--- OUTSIDE RECORDS SUMMARY | 2025-05-03 10:27 | XMS_ITS ---
Author Organization [facility] Address [address] [place], [place] [id number] Care Team Providers Care Operator Cavity Pump Name Role Phone Shaikh AUBREE Storm Primary Care Provider [phone] Ronaldo Alaniz MD Unavailable [phone] Constance Durand Unavailable Unavailable Active Problems ProblemNoted DateDiagnosed DateStage 3 chronic kidney /21/2023Prostate sbueud2911/18/2022 Current Treatment and Therapy Plans No current [...] you may be interested in: [email or web address] Children'S Nursery Assistant Production Superintendent Art Therapy Support Groups- Contact Children'S Nursery Assistant for dates and times. Prepared by: Elizabeth Freire APRN.CT SCAN SPECIAL PROCEDURES TECHNOLOGIST Delivered on: November 18, 2022 - This [...]
--- OUTSIDE RECORDS SUMMARY | 2025-05-03 10:27 | XMS_ITS | Encounter Summary ---
Author Organization [facility] Address [address] [place] [address] Care Team Providers Care Machinist First Class Name Role Phone Shaikh AUBREE Storm Primary Care Provider [phone] Ronaldo Alaniz MD Unavailable [phone] Constance Durand Unavailable Unavailable Source Comments In the event this information is protected by the Federal Confidentiality of Alcohol and Drug AbusePatient Records regulations: The Federal rules restrict any use of the information to criminally investigate or prosecute any alcohol or drug abuse patient.[facility] Encounter Details DateTypeDepartmentCare Team (Latest Contact Info)Xblagmesoqf55/01/2025Clinical Document [facility] [place] [address] Provider, Ccf Social History Tobacco UseTypesPacks/DayYears UsedDateSmoking Tobacco: Every FurHxzuxfjgfv337 Smokeless Tobacco: Never Comments:2 ppd x 20 yrs, 1 p pd x 40 yrs Alcohol UseStandard Drinks/WeekCommentsNot Currently0 (1 standard drink = 0.6 oz pure alcohol)PHQ-2AnswerDate RecordedPHQ-2 nhcvq0375Area Deprivation IndexAnswerDate RecordedNational Score (1-100), lower number is lower risk61 11/18/2022State Score (1-10), lower number is lower cymx929ata from: https://www.neighborhoodatlas.medicine.[facility].edu/. Last address used for [address] [place] [address]11/18/2022Sex and Gender InformationValueDate RecordedSex Assigned at IxnoxLiog19/17/2023 11:44 AM EDTLegal FdrSmxh1412/06/2021 11:51 AM EDT Gender PycvijycHzbz48/17/2023 11:44 AM EDTSexual RzrcvynmtiuWdqrsadp64/17/2023 11:44 AM EDTdocumented as of this encounter Plan of Treatment Not on file documented as of this encounter Visit Diagnoses Not on filedocumented in this encounter Care Teams Team MemberRelationshipSpecialtyStart DateEnd Date Shaikh Storm MD [address] [place] [address] PCP - GeneralPrimary Care12/06/21 Ronaldo Alaniz MD [address] [place] [address] ReferringUrology12/06/21 Constance Durand LSW Social Dzekey47/4/22documented as of this encounter
--- OUTSIDE RECORDS SUMMARY | 2025-05-03 10:27 | XMS_ITS | Clinical Summary ---
Author Organization [facility] Address [address] [place] [address] Care Team Providers Care Transport Nurse Name Role Phone Shaikh AUBREE Storm Primary Care Provider [phone] Allergies Active AllergyReactionsCriticalityNoted DateCommentsEzetimibeGI intoleranceHigh 04/27/2023 Other reaction(s): Nausea/vomiting Uaiyudf-Npq-Bph Reductase MskpqviaksPrgtaPlorqc68/30/2023 Muscle/Joint Pain Other Reaction(s): lipitor Medications MedicationSigDispense QuantityRefillsLast FilledStart DateEnd DateStatus valsartan (Diovan) 80 mg tablet Take 80 mg by mouth in the morning.06/04/2023ctive amLODIPine (Norvasc) 10 mg tablet Take 1 tablet by mouth in the morning.03/22/2021ctive baclofen (Lioresal) 10 mg tablet Take 10 mg by mouth at bedtime.08/17/2023ctive ergocalciferol (Vitamin D-2) 1.25 MG (43661 Units) capsule Take 1,250 mcg by mouth 1 (one) time per week.Active aspirin 81 mg capsule Indications:PAD (peripheral artery disease)Take 81 mg by mouth in the morning. Restart on Thursday11/22/2023 30 capsule 11/18/2023ctive nitroglycerin (Nitrostat) 0.4 mg SL tablet Refills(s) ctive HYDROcodone-acetaminophen ([place]) 7.5-325 mg tablet 1 tablet.09/08/2023Active clopidogrel (Plavix) 75 mg tablet Take 1 tablet by mouth in the morning.5Active cyclobenzaprine (Flexeril) 10 mg tablet 10 mg if needed at bedtime for muscle spasms.5Active Active Problems ProblemNoted DateDiagnosed DateS/P lumbar vcuklkuwoul88/18/2024ge-related nuclear cataract of left eye09/28/2023Nuclear senile lgmbswne71/29/2024Elevated random blood glucose level09/28/2023 Overview (11/05/2023): Last Assessment & Plan: Elevated random blood glucose levels when he had labs earlier this year. Check A1C. Gastroesophageal reflux disease without gwniofkzflh29/29/2024 Overview (11/05/2023): Last Assessment & Plan: Reports metallic taste in mouth, early satiety and mild abdominal discomfort. Trial of Omerpazole. Follow up in 2 months. Unintentional weight crttju4409/28/2023 Overview (11/05/2023): Last Assessment & Plan: Weight loss of 7 lbs in 3 months. Reports feeling tired. Check TSH. Lumbar stenosis with neurogenic rtwucxfxjcju03/03/2024 Overview (11/05/2023): Last Assessment & Plan: Recommended surgery by NS. He is planning to go ahead with it. Pain is persistent, unchanged. Synovial cyst of lumbar facet joint09/02/2023Lumbar omubtblmjezoa66/03/2024MI 28.0-28.9,adult08/18/2023therosclerotic heart disease of lower [place] coronary artery without angina rtuwbncn03/29/2024 Overview (11/05/2023): Last Assessment & Plan: S/p [...] hips on prolonged ambulation. Patient is on [place] for chronic pain. He was evaluated by NS at [facility] and it seemed like they were concerned about possible opioid induced hyperalgesia. Patient has been trying to wean himself off of [place] but if he does not use [...] NS at [facility]. Tobacco abuse06/29/2023 Overview (11/05/2023): Last Assessment & [...] minutes were spent on Smoking/Tobacco use counseling. Mhodkuz5106/04/2023PH with urinary tzazsgafnfn90/04/2024hest pekijbwp65/04/2024 Chronic pain strbuqfc53/04/2024hronic mcmkzvavpni80/04/2024Feeling of incomplete bladder oeudfdkl91/04/2024Erectile gmkjfwoubsa47/04/2024Gross iebxeloye04/04/2024arotid artery dtbhkqm1506/04/2023VA (cerebral vascular accident)06/04/2023 Overview (11/05/2023): Last Assessment & Plan: Prior hx of ischemic CVA. No residual deficit. On ASA, statin. Heart gcbsgyj0206/04/2023AD (peripheral artery disease)06/04/2023 Overview (11/05/2023): Last Assessment & Plan: On ASA, Plavix and statin. Left leg revascularization 2022 at [facility]. 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 PSA Normal 04/[address] Alaniz and Oncology. Vvkqcfaekvhf08/27/2023 Overview (11/05/2023): Last Assessment & Plan: Well controlled on current regimen. Has noted lately that his HR is sometimes in the low 40,50 range while onatenolol. At the same he has noticed fatigue too. Discontinue Atenolol. Monitor BP at home w.o it. Will order an EKG to r/o heart block, TSH. Last Assessment & Plan: C/w amlodipine. At goal. Monitor. Peripheral vascular pwqvqbk4804/27/2023 Overview (11/05/2023): Last Assessment & Plan: Recent revascularization 03/23 - with excellent results and improved LLE pain. On ASA, plavix and statin. No ulcers/rest pain HLD (hyperlipidemia)04/27/2023 Overview (11/05/2023): Last Assessment & Plan: Recently started on Pravastatin by Vascular surgery. Check Lipid Panel in one month. Last Assessment & Plan: On pravastatin Check lipid panel . Stage 3 chronic kidney xmdxdfe1311/19/2022 Overview (11/05/2023): Last Assessment & Plan: CKD 3, due to HTN. Monitor. Cr stable, no change C.w treatment for HTN. Follows Dr Thakkar for CKD. Last Assessment & Plan: Stable. Check labs Prostate hzkodz7511/18/2022Intermittent lxluktpdugug85/04/2021 Encounters DateTypeDepartmentCare GtuvXonztohbyxx85/15/2025 12:40 PM EDTFollow-Up [facility] [address] [place] [address] Vasile Watson MD Lumbar spondylosis (Primary Dx); Chronic bilateral low back pain without zmuexwia20/01/2025 - 03/01/2025 11:59 PM EDTHospital Encounter [facility] Radiology External Films [address] [place] [address] Discharge Disposition: Home or Self Care [...] RecordedIn the past 12 months has the SecretSales, gas, oil, or water Memoir threatened to shut off services in your [...] heating?Not hard at all01/12/2024HQ-2AnswerDate RecordedPatient Health Questionnaire-2 Ozojo354UT Safety & EnvironmentAnswerDate RecordedWithin the last year, [...] file01/12/2024Sex and Gender InformationValueDate RecordedSex Assigned at XeiurSvhz59/03/2024 10:58 AM EDTLegal YsnPxqy9611/28/2021 12:39 AM EDTGender VjpqncktDnsx78/03/2024 10:58 AM EDTSexual OrientationHeterosexual or Tyctsybn62/03/2024 10:58 AM EDT Last Filed Vital Signs Vital SignReadingTime TakenCommentsBlood Rasvfzsw496/8810 12:56 PM EDT Ebprc290803/15/2025 12:56 PM EPRYqfbgdzkfoz17.6 ??C (97.8 ??F)01/12/2024 1:09 PM EDTRespiratory Zwab689511/18/2023 7:01 AM EDTOxygen Gxuesdyqmg82%08/18/2024 2:10 PM EDTInhaled Oxygen Concentration--Ifkndg54.8 kg (198 lb)03/15/2025 12:56 PM ZNBPmggbd803.8 cm (5' 10 )08/18/2024 2:10 PM EDTBody Mass Index28.41008/18/2024 2:10 PM EDT Plan of Treatment Health MaintenanceDue DateLast DoneCommentsMedicare Annual Wellness (AWV) 1945Pneumococcal Vaccine: 50+ Years (1 of 2 - PCV)1964Adult Tetanus 1967Zoster Vaccines (1 of 2)1995COVID-19 Vaccine (3 - season)502/, 06/28/2020Influenza Vaccine (#1)2025 Depression Bavovhdnf81Fall Risk Sqkdearzh08 HIB VaccinesAged OutNo longer eligible based on [...] Procedures Procedure NamePriorityDate/TimeAssociated DiagnosisCommentsCT TRANSFER OF OUTSIDE KUEKVGjgzrtf26/01/2025 12:00 AM EDT from Last 3 Months [...]
--- OUTSIDE RECORDS SUMMARY | 2025-05-03 10:27 | XMS_ITS | Encounter Summary ---
Author Organization [facility] Address [address] [place] [address] Care Team Providers Care Lead Fire Protection Engineer Name Role Phone Shaikh AUBREE Storm Primary Care Provider [phone] Ronaldo Alaniz MD Unavailable [phone] Constance Durand Unavailable Unavailable Source Comments In the event this information is protected by the Federal Confidentiality of Alcohol and Drug AbusePatient Records regulations: The Federal rules restrict any use of the information to criminally investigate or prosecute any alcohol or drug abuse patient.[facility] Encounter Details DateTypeDepartmentCare Team (Latest Contact Info)Eowxohvsaju44/19/2025Travel Social History Tobacco UseTypesPacks/DayYears UsedDateSmoking Tobacco: Every HhsUyixkdakfe362 Smokeless Tobacco: Never Comments:2 ppd x 20 yrs, 1 p pd x 40 yrs Alcohol UseStandard Drinks/WeekCommentsNot Currently0 (1 standard drink = 0.6 oz pure alcohol)PHQ-2AnswerDate RecordedPHQ-2 lijai9675Area Deprivation IndexAnswerDate RecordedNational Score (1-100), lower number is lower risk61 11/18/2022State Score (1-10), lower number is lower klrn625ata from: https://www.neighborhoodatlas.medicine.[facility].edu/. Last address used for [address] [place] [address]/18/2022Sex and Gender InformationValueDate RecordedSex Assigned at NvvtyRjbb61/17/2023 11:44 AM EDTLegal DguZpxb8812/06/2021 11:51 AM EDT Gender DcxskncnLdjh99/17/2023 11:44 AM EDTSexual KfcglglkxpwHvqurxkt29/17/2023 11:44 AM EDTdocumented as of this encounter Plan of Treatment Not on file documented as of this encounter Visit Diagnoses Not on filedocumented in this encounter Care Teams Team MemberRelationshipSpecialtyStart DateEnd Date Shaikh Storm MD [address] [place] [address] PCP - GeneralPrimary Care12/06/21 Ronaldo Alaniz MD [address] [place] [address] ReferringUrology12/06/21 Constance Durand LSW Social Zbsvjb94/4/22documented as of this encounter
--- OUTSIDE RECORDS SUMMARY | 2025-05-03 10:27 | XMS_ITS | Clinical Summary ---
Author Organization [facility] Address [address] [place], [place] [id number] Care Team Providers Care Bean Snipper Name Role Phone Shaikh AUBREE Storm Primary Care Provider [phone] Ronaldo Alaniz MD Unavailable [phone] Constance Durand Unavailable Unavailable Allergies No known active allergies Medications MedicationSigDispense QuantityRefillsLast FilledStart DateEnd DateStatus aspirin 81 mg cap Take by mouth.03/22/2021ctive pravastatin (PRAVACHOL) 10 mg tablet pravastatin 10 mg hbyvau1703/22/2021ctive amLODIPine (NORVASC) 10 mg tablet amlodipine 10 mg vhbhme3703/22/2021ctive ergocalciferol, vitamin D2, (VITAMIN D2 ORAL) Take [...] Problems ProblemNoted DateDiagnosed DateStage 3 chronic kidney xkwbhrb7611/19/2022rostate cferkd7511/18/2022 Encounters DateTypeDepartmentCare KrwmCeliloegcpd15/01/2025linical Document [facility] [address] Provider, [facility] 05/01/2025H&P External-NonCCF Provider, HUANG Easley 04/20/2025 9:45 AM ESTOffice Visit Radiation Oncology [address] [place] [address] [place] [address] Hyun Raza MD Prostate cancer (HCC) (Primary Dx)04/20/2025Telephone Cancer Appts [address] [place] [address] Hyun Raza MD Nm Pet Fpldhsl4004/19/2025Travelfrom Last 3 Months Immunizations ImmunizationAdministration DatesNext DueCOVID-19 original vaccine, full dose, monovalent (MODERNA)07/26/2020,06/28/2020 Family History Medical HistoryRelationCommentsOvarian cancerSisterRelationStatusCommentsSister Social History Tobacco UseTypesPacks/DayYears UsedDateSmoking Tobacco: Every DvyCibewbqyga266 Smokeless Tobacco: Never Tobacco Cessation:Ready to Q uit: Not Asked; Counseling Given: Not Answered Comments:2 ppd x 20 yrs, 1 ppd x 40 yrs Alcohol UseStandard Drinks/WeekCommentsNot Currently0 (1 standard drink = 0.6 oz pure alcohol)PHQ-2AnswerDate RecordedPHQ-2 slbvc7415Area Deprivation IndexAnswerDate RecordedNational Score (1-100), lower number is lower risk61 11/18/2022State Score (1-10), lower number is lower cdeg9283Data from: https://www.neighborhoodatlas.medicine.[facility].edu/. Last address used for [address] [place] [address]/18/2022Sex and Gender InformationValueDate RecordedSex Assigned at NlcmnDjkg22/17/2023 11:44 AM EDTLegal JivXdga3812/06/2021 11:51 AM EDT Gender KvwqojwfXvnf95/17/2023 11:44 AM EDTSexual OzcttlaoiodQpepwwul04/17/2023 11:44 AM EDT Last Filed Vital Signs Vital SignReadingTime TakenCommentsBlood Badlktye446/8011 9:43 AM EST Awyvm715004/20/2025 9:43 AM KAKNnmuoexvaxq27 ??C (98.6 ??F)01/18/2025 9:27 AM EDT Respiratory Wksv623706/20/2024 9:43 AM ESTOxygen Vvbwgcmdvd87%04/20/2025 9:43 AM ESTInhaled Oxygen Concentration--Jfvqyo90.6 kg (199 lb 11.8 oz)04/20/2025 9:43 AM NVROfqwep272.8 cm (5' 10 )01/18/2025 9:27 AM EDTBody Mass Index28.66 01/18/2025 9:27 AM EDT Plan of Treatment Health MaintenanceDue DateLast DoneCommentsAnnual PCP Team Chronic Disease Visit 1963Anxiety Mblrghzjs43/24/1964Depression Wepshgfxp37/24/1964DTaP,Tdap,Td Vaccine (1 - Tdap)1964Pneumococcal Vaccine: 50+ (1 of 2 - PCV)1964 Shingrix Vaccine (1 of 2)1995RSV Vaccine (1 - 1-dose 75+ series)2020 Advance Directive Zxdgxkdfsd64/01/2025Medicare Advantage Annual Wellness Visit 06/01/2024Serum Hjehxvvddu72/19/878769/, 11/05/2023, 10/01/2023, Additional history existsCovid-19 Vaccine ( - season)2025 07/26/2020, 06/28/2020Influenza Vaccine (#1)2025Diabetes Screening 706/, 11/05/2023, 10/01/2023, Additional history exists Procedures Procedure NamePriorityDate/TimeAssociated DiagnosisCommentsEXTERNAL PROCEDURE 05/01/2025 4:01 PM EST EXTERNAL LAB05/01/2025 4:01 PM EST EXTERNAL LTWJGFO3504/26/2025 2:06 PM EST EXTERNAL LAB04/20/2025 4:11 PM EST EXTERNAL LAB04/17/2025 3:35 PM EST PSA (OUTSIDE)Evgudgv6704/17/2025 PSA (OUTSIDE)Zaixrdn8804/11/2025 from Last 3 Months Results * EXTERNAL PROCEDURE (05/01/2025 4:01 PM EST) Narrative Authorizing ProviderResult TypeResult StatusExternal Provider PA-CPROCEDUREFinal Result * EXTERNAL LAB (05/01/2025 4:01 PM EST) Only the most recent of3 resultswithin the time period is included. Narrative Authorizing ProviderResult TypeResult StatusExternal Provider PA-CLABORATORY Final Result * EXTERNAL IMAGING (04/26/2025 2:06 PM EST)Anatomical RegionLateralityModality Other Narrative Authorizing ProviderResult TypeResult StatusExternal Provider PA-CRADIOLOGYFinal Result * PSA (OUTSIDE) (04/17/2025) Only the most recent of2 resultswithin the time period is included. ComponentValueRef RangeTest MethodAnalysis TimePerformed AtPathologist Signature PSA.3.28Specimen (Source)Anatomical Location / LateralityCollection Method / VolumeCollection TimeReceived TimeBLOOD SPECIMEN / Edmzisr6404/17/2025 Narrative Authorizing ProviderResult TypeResult StatusCcf ProviderLABORATORYFinal Result from Last 3 Months Insurance Care Teams Team MemberRelationshipSpecialtyStart DateEnd Date Fawwad, Rendon, MD [address] [place] [address] PCP - GeneralPrimary Care12/06/21 Ronaldo Alaniz MD [address] [place] [address] ReferringUrology12/06/21 Constance Durand LSW Social Oqvcrk35/4/22
--- OUTSIDE RECORDS SUMMARY | 2025-05-03 10:45 | XMS_ITS | CCD ---
Author Organization [facility] Care Team Providers Care Hospital Chief Executive Officer Name Role Phone Sterling Vizcaino Primary Care Physician Theo Thakkar Unavailable Dotty MAK [facility] Primary Care Provider Barbara Johnston MD Unavailable YAHAIRA STORMIKH Primary Care Physician Dotty MAK [facility] Primary Care Provider Barbara Johnston MD Unavailable Constance Beverly Unavailable Unavailable Dotty MAK [facility] Primary Care Provider [phone] Barbara Johnston MD Unavailable [phone] Constance Beverly Unavailable Unavailable MD Dotty [facility] Primary Care Provider MD Zeinab Justice Attending Provider [phone] MD Lyla Nazario Attending Provider LAKSHMIPATHY ., NARENDRANATH Attending Kiera vailable LAKSHMIPATHY ., NARENDRANATH Admitting Kiera vailable JOHN .HUBERT Consulting Unavailable [facility] Primary Care Unavailable OLIVA ., DR HOSEA Davison Admitting Unavailable LOPEZ MENJIVAR Consulting Unavailable OLIVA ., DR HOSEA Davison Attending Unavailable [facility] Primary Care Unavailable OLIVA ., DR HOSEA Davison Admitting Unavailable OLIVA ., DR HOSEA Davison Consulting Unavailable [facility] Primary Care Unavailable KRISTEN ., DR HOSEA Davison Attending Unavailable [facility] Consulting Unavailable HOBBS ., LOPEZ Consulting Unavailable OLIVA ., DR HOSEA Davison Attending Unavailable OLIVA ., DR HOSEA Davison Admitting [facility]available [facility] Primary Care Unavailable OLIVA ., DR HOSEA Davison Consulting Unavailable OLIVA ., DR HOSEA Davison Admitting Unavailable OLIVA ., DR HOSEA Davison Consulting Unavailable [facility] Primary Care Unavailable OLIVA ., DR HOSEA Davison Attending Unavailable [facility], [facility] Consulting Unavailable JONATHAN MARTIN Consulting Unavailable HOBBS ., LOPEZ Consulting Unavailable OLIVA ., DR HOSEA Davison Admitting Unavailable [facility] Primary Care Unavailable OLIVA ., DR HOSEA Davison Attending Unavailable HOBBS ., LOPEZ Consulting Unavailable OLIVA ., DR HOSEA Davison Attending Unavailable OLIVA ., DR HOSEA Davison Admitting Unavailable [facility] Primary Care Unavailable OLIVA ., DR HOSEA Davison Attending Unavailable OLIVA ., DR HOSEA Davison Admitting Unavailable [facility] Primary Care Unavailable OLIVA ., DR HOSEA Davison Consulting Unavailable HOBBS ., LOPEZ Consulting Unavailable OLIVA ., DR HOSEA Davison Attending Unavailable OLIVA ., DR HOSEA Davison Admitting Unavailable [facility] Primary Care Unavailable OLIVA ., DR HOSEA Davison Admitting Unavailable [facility] Primary Care Unavailable OLIVA ., DR HOSEA Davison Attending Unavailable OLIVA ., DR HOSEA Davison Admitting Unavailable OLIVA ., DR HOSEA Davison Consulting Unavailable [facility] Primary Care Unavailable OLIVA ., DR HOSEA Davison Attending Unavailable [facility], [facility] Primary Care Unavailable JOHNSTON ., DR JIMENEZ Consulting Unavailable JOHNSTON ., DR JIMENEZ Attending Unavailable JOHNSTON ., DR JIMENEZ Admitting Unavailable VIVIAN, THEO Consulting Unavailable VIVIANNIXONUL Attending Unavailable VIVIAN, THEO Admitting Unavailable [facility] Primary Care Unavailable RUT KIRBY Attending Unavailable RUT KIRBY Admitting Unavailable [facility] Primary Care Unavailable MD Justice Storm Primary Care Provider MD Justice Storm Other Provider ABE Ferrera Attending Provider Anesthesiologist, Temporary Attending Provider U prabhu Bonnie Tan Unavailable MD Lyla Nazario Attending Provider MD Jose Martin Mchugh Attending Provider MD Theo Thakkar Attending Provider Jose Martin Mchugh Unavailable MD Dotty [facility] Primary Care Provider Anesthesiologist, Temporary Attending Provider U MD Lyla Carvalho Attending Provider MD Jose Martin Mchugh Attending Provider MD Theo Thakkar Attending Provider MD Yahaira Stormikh Primary Care Provider MD Justice Storm Attending Provider Dotty MAK [facility] Primary Care Provider JOSE NICHOLS Referring [facility] Primary Care Unavailable KODI REYNOLDS Attending Unavailable Dotty MAK [facility] Primary Care Provider CHAIM GRAYSON Referring [facility]available [facility] Primary Care Unavailable CHAIM GRAYSON Referring [facility]available [facility] Primary Care Unavailable CHAIM GRAYSON Referring [facility] Primary Care Unavailable Nicolette MAK, Adalid Powers Attending Unavailable Dotty MAK [facility] Primary Care Provider MD Yahaira Stormikh Primary Care Provider MD Justice Storm Attending Provider MD Barbara Johnston Referring Provider [phone] Yahaira Storm MDikh Primary Care Provider NO FAMILY, PHYSICIAN Primary Care Provider Unava ilMD Theo Grigsby Attending Provider [phone] MS. [facility] WARDY DENZEL Primary Care P hysician Barbara JOHNSTON Attending [facility]available [facility] e BRITNI, CLAIRE E Admitting Unavailable BRITNI, CLAIRE E Attending Unavailable BRITNI, CLAIRE E Admitting Unavailable BRITNI, CLAIRE E Attending Unavailable Galthao, Karime J Admitting Unavailable Galthao, Karime Stone Attending Unavailable [facility] [place] Unavailabl e Barbara JOHNSTON Attending Unavailable BRITNI, CLAIRE E Attending Unavailable Galthao, Karime Stone Attending Unavailable [facility] [place] Unavailaudie Avalos MD, Brian Primary Care Provider [phone] Ed RECEIVING CLERK, Nasir Unavailable Brian Avalos MD Primary Care Provider Fraooq Quezada PA-C Emergency Provider NASIR WARD Attending Unavailabl SHAIKH Schmidt Attending Unavailable SHAIKH STORM Attending Unavailable NASIR WARD Attending Unavailabl e NASIR WARD Attending Unavailabl AMBROSIO Galvna Primary Care Physician Brian Avalos MD Primary Care Provider Farooq Quezada PA-C Emergency Provider Theo Thakkar MD Attending Provider OrzeCherie byrne X Attending Unavailable Orzech Cherie X Admitting Unavailable BRITNI, CLAIRE E Attending Unavailable BRITNI, CLAIRE E Admitting Unavailable Barbara JOHNSTON Attending Unavailable Shaikh Storm MD Primary Care Provider BRITNI, CLAIRE E Attending Unavailable BRITNI, CLAIRE E Admitting Unavailable Ward RECEIVING CLERK, [facility] Unavailable [phone] Barbara Johnston MD Unavailable [phone] Genoveva NAZARIO Attending Unavailable FAWWAD, CARREON Primary Care Unavailable Genoveva NAZARIO Referring Unavailable DOTTY, [facility] Unavailable Bailey MAK, Brian Primary Care Provider Ed HANSON, Nasir Unavailable [phone] Bailey MAK, Brian Primary Care Provider [phone] Vivian MAK, Theo Attending Provider CLAIRE JAMES Attending Unavailable Barbara Johnston MD Attending Provider Savannah DO, [facility] Primary Care Provider [facility] DO, [facility] Attending Provider [phone] JOSE HECTOR Attending Unavailable CHAIM GRAYSON Referring Unavailable DOTTY [facility] Primary Care Unavailable VASILE MADERA Referring Unavailable VASILE MADERA Attending Unavailable NICKOLAS BENÍTEZ Attending Unavailable Brian Avalos Primary Care Unavailable Farooq Quezada Attending Unavailable Farooq Quezada Admitting Unavailable Barbara Johnston Attending Unavailable Barbara Johnston Admitting Unavailable Theo Thakkar Admitting Unavailable Brian Avalos Primary Care Unavailable Theo Thakkar Attending Unavailable Dotty MAK, [facility] Primary Care Provider Dotty MAK, [facility] Primary Care Provider Barbara JOHNSTON Attending Unavailable Barbara JOHNSTON Attending Unavailable PRESTON, Barbara Warner Referring Unavailable PRESTON, Barbara Warner Admitting Unavailable Barbara JOHNSTON Attending Unavailable Barbara JOHNSTON Attending Unavailable Barbara JOHNSTON Attending Unavailable LUCINA WARDTANY [facility] Unavailabl e CLAIRE JAMES Attending Unavailable ED [facility] Unavailaudie e Allergies Allergy ClassificationReported Allergen(s)Allergy TypeDate of OnsetReaction(s) Facility (20 sources)ezetimibe; Translations: [EZETIMIBE]Drug Dtsohnu24-04-0557KA intolerance, Nause[facility] (8 sources)HMG-CoA reductase inhibitor; Translations: [RUPXQDD-OCM-BDJ REDUCTASE INHIBITORS]Drug Gewrubuwyql60-23-8301KpvtrTcgxcjapbeKettering Health [facility] Work Phone: (16 sources)HMG-CoA reductase inhibitorDrug Qtxqsxytvkl17-41-8660UpxrsPMBC Healthcare Medications Current Medications MedicationDrug Class(es)DatesSig (Normalized)Sig (Original)acetaminophen 325 mg oral tablet (14 sources)Start: 40-45-4165smdc 2 tablets by mouth every eight hours acetaminophen (Tylenol) 325 MG tablet Take 650 mg by mouth every 8 (eight) hours 11/18/2023 Activeacetaminophen 325 mg / HYDROcodone bitartrate 5 mg oral tablet (20 sources)Opioid AgonistStart: 28-53-8001ktul 1 tablet by mouth once daily as neededStart: 01-14-2024 End: 07-92-7102FHWPJieucyw-acetaminophen ([place]) 5-325 MG tablet TAKE 1 TABLET BY MOUTH 2 TO 3 TIMES A DAY FOR 14 DAYS 01/14/2024 07/13/2024 DiscontinuedStart: 01-08-2023 End: 89-66-4593luak 1 tablet by mouth three times daily as needed for pain Hydrocodone-Acetaminophen 7.5-325 mg tablet Discontinued 1 TAB PO Three times daily as needed for Pain February 06, 2023 12:00am February 29, 2024 11:39amStart: 11-09-2021 End: 16-62-3536vzzx 1 tablet by mouth twice daily as needed for painHydrocodone- Acetaminophen 5-325 mg tablet Discontinued 1 TAB PO Twice daily as needed for Pain 2021 12:00am February 06, 2023 11:57amStart: 11-09-2021 End: 42-76-3923RIDFLlalrro-acetaminophen (NORCO) 5-325 mg per tablet 11/09/2021 12/15/2023 Discontinued (Discontinued by another Health Care Provider)Start: 59-22-3774vvdb 1 tablet by mouth every six hoursNorco 5/325 Tab Oral, q6hr, Refill(s) 0 Start Date: 03/22/21 Status: Ordered Medication Dispense Status: Completed Total Allowed Fills: 1 Fills Dispensed: 0Start: 65-30-8351nqww 1 tablet by mouth every six hoursNorco 5/325 Tab Oral, q6hr, Refill(s) 0 Start Date: 03/22/21 Status: Ordered Repeat number: 1Start: 37-67-0429Dhekf 5/325 Tab Oral, q6hr, Refill(s) 0 Start Date: 03/22/21 Status: OrderedStart: 03-22-2021 [place] 5/325 Tab Oral, q6hr, Refill(s) 0 Start [...] oral tablet (20 sources)Dihydropyridine Calcium Channel BlockerStart: 04-88-8730lnbg 1 mg by mouth once dailyamLODIPine 5 mg Tab mg tab(s), Oral, Daily, Refills(s) 0 Start Date: 03/22/21 Status: OrderedStart: 03-22-2021 End: 16-89-1745qpLOKIZhlx 10 mg Tab 10 mg = 1 tab(s), Refills(s) 0 Start Date: 04/18/24 Status: Ordered MedicationDispense Status: Completed Total Allowed Fills: 1 Fills Dispensed: 0Comment on above:amlodipine 10 mg tabletamoxicillin 500 mg oral capsule (2 sources)Penicillin-class AntibacterialStart: 83-87-8210ymwp 1 capsule by mouth every eight hoursAmoxicillin 500 MG 1 capsule Orally every 8 hrs for 5 day(s) Mar, Activeaspirin 81 mg delayed release oral tablet (20 sources)Platelet Aggregation Inhibitor, Nonsteroidal Anti-inflammatory Drug Start: 51-26-2137vcnu 1 tablet by mouth once dailyStart: 86-62-3494kgro 1 mg by mouth every four hoursaspirin 81 mg oral capsule mg cap(s), Oral, q4hr, Refills(s) 0 Start Date: 03/22/21 Status: OrderedMedication Dispense Status: Completed Total Allowed Fills: 1 Fills Dispensed: 0Start: 58-29-0397gnzisub 81 mg cap Take by mouth. 03/22/2021 ActiveASPIRIN 81 MG chewable tablet Chew 81 mg in the morning. Activetake 1 tablet by mouth once dailyAspirin 81 81 MG 1 tablet Orally Once a day ActiveComment on above:Take by mouth.cephalexin 500 mg oral capsule (1 source)Cephalosporin AntibacterialStart: 08-08-2024 End: 87-52-5482pxlj 1 capsule by mouth every twelve hoursKeflex 500 mg Cap 500 mg = 1 cap(s), Oral, q12hr, X 7 day(s), # 14 cap(s), Refills(s) 0, Pharmacy: [facility]/pharmacy #[id number], 178, cm, 08/08/24 12:38:00 EDT, Height/Length Dosing, 90.4, kg, 08/08/24 12:38:00 EDT, Weight Dosing Start Date: 08/08/24 Stop Date: 08/15/24 Status: Orderedclopidogrel 75 mg oral tablet (20 sources)P2Y12 Platelet InhibitorStart: 03-23-2023 End: 99-14-4390cxjccatxcgv 75 mg Tab 75 mg = 1 tab(s) Start Date: 04/21/23 Status: Ordered Medication Dispense Status: Completed Total Allowed Fills: 1 Fills Dispensed: 0Clopidogrel Bisulfate ActiveCranberry preparation (4 sources)Non-Standardized Food Allergenic Extract, Non-Standardized Plant Allergenic ExtractStart: 43-17-4080Clq cranberry Refill(s) 0 Start Date: 09/18/23 Status: Orderedcyclobenzaprine hydrochloride 10 mg oral tablet (2 sources)Muscle RelaxantStart: 96-85-6676esjn 1 tablet by mouth once daily at bedtimedesmopressin acetate 0.1 mg oral tablet (7 sources)Vasopressin Analog, Factor VIII ActivatorStart: 05-05-2023 End: 61-97-2125nyow 1 tablet by mouth once daily at bedtimedesmopressin (DDAVP) 0.1 mg tablet Take 1 tablet (100 mcg) by mouth once daily at bedtime. 05/05/2023 08/30/2024 Discontinued (Therapy completed)Start: 04-21-2023 End: 41-61-8011lalv 0.5 tablet by mouth at bedtimedesmopressin 0.1 mg oral tablet 0.05 mg = 0.5 tab(s), Oral, As Directed, take a half tab at bedtime, X 10 day(s), # 5 tab(s), Refills(s) 0, [facility]: [id number], 178, cm, 04/21/23 8:36:00 EST, Height/Length Dosing, 92, kg, 04/21/23 8:36:00 EST, Weight Dosing Start Date: 04/21/23 Stop Date: 05/01/23 Status: OrdereddiazePAM 5 mg oral tablet (3 sources)BenzodiazepineStart: 03-03-2022 End: 35-69-8283wvcadRBY (VALIUM) 5 mg tablet Indications: Malignant neoplasm [...] oral capsule (9 sources)Tetracycline-class DrugStart: 04-07-2024 End: 39-42-4069qwzp 1 capsule by mouth twice dailydoxycycline hyclate 100 mg Cap 100 mg = 1 cap(s), Oral, BID, X 7 day(s), # 14 cap(s), Refills(s) 0,Pharmacy: [facility], 178, cm, 09/18/23 10:55:00 EDT, Height/Length Dosing, 92, kg,09/18/23 10:55:00 EDT, Weight Dosing Start Date: 04/07/24 Stop Date: 04/14/24 Status: OrderedStart: 02-29-2024 End: 02-24-0273atvi 1 tablet by mouth twice dailyDoxycycline Hyclate 100 mg tablet Discontinued 100 MG PO Twice daily 14 February 29, 2024 12:00am August 15, 2024 10:38amergocalciferol 1.25 mg oral capsule (20 sources)Provitamin D2 CompoundStart: 03-11-2024 End: 20-70-2289rvsm 1 capsule by mouth every weekStart: 78-93-7289cngv 1 capsule by mouth every weekErgocalciferol (Vitamin D2) 1,250 mcg (50,000 unit) capsule Active 0 .ROUTE .COMPLEX March 11, 2024 10:14am TAKE 1 CAPSULE BY MOUTH ONCE A WEEKStart: 02-32-3007iyzy 1 capsule by mouth every weekErgocalciferol (Vitamin D2) 1,250 mcg (50,000 unit) capsule Active 0 .ROUTE .COMPLEX March 11, 2024 9:14am TAKE 1 CAPSULE BY MOUTH ONCE A WEEKStart: 09-15-2023 End: 41-39-6822Vcwxojqiqhlpav (Vitamin D2) 1,250 mcg (50,000 unit) capsule Discontinued 62003 UNIT PO Once a week 14 06September 15, 2023 5:43pm March 11, 2024 10:15amStart: 09-15-2023 End: 73-00-8810gllt 39196 [IU] by mouth every weekErgocalciferol (Vitamin D2) Active 95861 UNIT PO Once a week September 15, 2023 5:43pmStart: 95-95-2292kyne 1 capsule by mouth every weekErgocalciferol 1.25 MG (68912 UT) 1 capsule Orally Q week for 90 days Mar, Activetake 1 capsule by mouth every week ergocalciferol (Vitamin D-2) 1.25 MG (93032 UT) capsule Take 1 capsule (1,250 mcg) by mouth 1 (one)time per week. Activeergocalciferol, vitamin D2, (VITAMIN D2 ORAL) (4 sources)ergocalciferol, vitamin D2, (VITAMIN D2 ORAL) Take by mouth. Active ergocalciferol, vitamin D2, (VITAMIN D2 ORAL) Take by mouth. 0 ActiveComment on above:Take by mouth.ezetimibe 10 mg oral tablet (2 sources)Dietary Cholesterol Absorption InhibitorStart: 03-76-6026powm 1 mg by mouth once dailyezetimibe 10 mg Tab mg tab(s), Oral, Daily, Refills(s) 0 Start Date: 03/25/21 Status: Orderedferrous sulfate 325 mg oral tablet (2 sources)Start: 35-32-9260aemr 1 tablet by mouth every other daygabapentin 100 mg oral capsule (20 sources)Anti-epileptic AgentStart: 02-11-2023 End: 17-55-1563cjyb 1 capsule by mouth twice dailygabapentin (Neurontin) 100 mg capsule Take 1 capsule (100 mg) by mouth 2 times a day. 02/11/2023 08/30/2024 Discontinued (Therapy completed)Start: 02-06-2023 End: 87-77-5180uafz 1 capsule by mouth once dailyGabapentin 100 mg Capsule Discontinued 100 MG PO Daily February 06, 2023 12:00am August 15, 994306:38am Start: 86-41-7642nryf 1 mg by mouth once dailyGabapentin Active MG PO Daily February 06, 2023 12:00amhydroCHLOROthiazide 12.5 mg / lisinopril 20 mg oral tablet (2 sources)Thiazide Diuretic, Angiotensin Converting Enzyme InhibitorStart: 86-59-0657dvwz 1 tablet by mouth once dailyhydrochlorothiazide-lisinopril 12.5 mg-20 mg Tab tab(s), Oral, Daily, Refill(s) 0 Start Date: 03/22/21 Status: Orderediv contrast (will be provided with radiology test) (3 sources)Start: 01-06-2023 End: 39-14-4095yc contrast (will be provided with radiology test) [...] link. 1 Each 01/07/2023 ActiveStart: 11-21-2022 End: 20-27-8676hr contrast (will be provided with radiology test) [...] Each 0 11/21/2022 11/22/2022 ActiveStart: 11-19-2022 End: 61-96-5395kg contrast (will be provided with radiology test) [...] mg oral tablet (2 sources)Leukotriene Receptor AntagonistStart: 64-89-3104hrua 1 mg by mouth once dailymontelukast 10 mg Tab mg tab(s), Oral, Daily, Refills(s) 0 Start Date: 03/25/21 Status: Orderednitroglycerin 0.4 mg sublingual tablet (15 sources)Nitrate VasodilatorStart: 76-23-9645cswoicvgdrmhb 0.4 mg sublingual Tab Refills(s) 0 Start Date: 09/18/23 Status: Ordered Medication Dispense Status: Completed Total Allowed Fills: 1 Fills Dispensed: 0Start: 08-18-2023 End: 98-68-0564Rjbwbcoxzo XL 5mg (4 sources)Oxybutinin XL 5mg ONCE A DAY ActiveOxybutinin XL 5mg Activeoxybutynin chloride 5 mg oral tablet (19 sources)Cholinergic Muscarinic AntagonistStart: 94-59-7919onjy 2 tablets by mouth at bedtimeoxybutynin 5 mg Tab 10 mg = 2 tab(s), Oral, Bedtime, # 60 tab(s), Refills(s) 3, Pharmacy: [facility], 178, cm, 02/11/23 14:50:00 EDT, Height/Length Dosing, 92, kg, 02/11/23 14:50:00 EDT, Weight Dosing Start Date: 02/11/23 Status: OrderedStart: 02-06-2023 End: 80-34-9914kpor 1 tablet by mouth once daily at bedtimeOxybutynin Chloride 5 mg Tablet Discontinued 5 MG PO Daily at bedtime February 06, 2023 12:00am October 15, 2023 9:17amStart: 99-84-4384uetr 1 tablet by mouth at bedtimeoxybutynin 5 mg Tab 5 mg = 1 tab(s), Oral, Bedtime, # 30 tab(s), Refills(s) 2, Pharmacy: [facility], 178, cm, 12/03/22 15:00:00 EDT, Height/Length Dosing, 93, kg, 12/03/22 15:00:00 EDT, Weight Dosing Start Date: 12/03/22 Status: Orderedpravastatin sodium 40 mg oral tablet (20 sources)HMG-CoA Reductase InhibitorStart: 03-23-2023 End: 43-13-4473kekwrclmsxw 40 mg Tab Refills(s) 0 Start Date: 04/21/23 Status: Ordered Medication Dispense Status:Completed Total Allowed Fills: 1 Fills Dispensed: 0Start: 03-22-2021 End: 78-34-1893nhkt 1 tablet by mouth once dailyPravastatin 10 mg tablet Discontinued 10 MG PO Daily November 22, 2021 12:00am March 23, 2023 10:03am CADComment on above:pravastatin 10 mg tabletsildenafil 50 mg oral tablet (7 sources)Phosphodiesterase 5 InhibitorStart: 04-21-2023 End: 22-80-9622damlykxxlh (Viagra) 50 mg tablet Take 1 tablet (50 mg) by mouth if needed. 04/21/2023 08/30/2024 Discontinued (Therapy completed)tadalafil 20 mg oral tablet (4 sources)Phosphodiesterase 5 InhibitorStart: 53-52-6269Sqfgnk 20 mg Tab 20 mg = 1 tab(s), Oral, As Directed, Do not exceed 20mg within 48 hours., # 30 tab(s), Refills(s) 1, Pharmacy: [id number], 178, cm, 07/07/23 9:25:00 EST, Height/Length Dosing, 92, kg, 07/07/23 9:25:00 EST, Weight Dosing Start Date: 07/07/23 Status: Orderedvalsartan 80 mg oral tablet (20 sources)Angiotensin 2 Receptor BlockerStart: 06-04-2023 End: 57-45-0766zeuwuhukq 80 mg Tab Refills(s) 0 Start Date: 09/18/23 Status: Ordered Medication Dispense Status: Completed Total Allowed Fills: 1 Fills Dispensed: 0Varenicline (Chantix Starting Month Box) 0.5 mg (11)- 1 mg (42) tablets,dose pack (1 source)Start: 57-96-4191zjiu 1 tablet by mouth onceVarenicline (Chantix Starting Month Box) 0.5 mg (11)- 1 mg (42) tablets,dose pack Active 0 PO per pa ckage directions February 29, 2024 12:00am PO PER PKG DIRvitamin B12 (2 sources)Vitamin Z54Ndrpk: 05-83-7062Bnlollg B12 Refills(s) 0 Start Date: 03/22/21 Status: OrderedVitamin D2 50,000 intl units (1.25 mg) oral capsule (11 sources)Start: 30-13-2351cqun 1 capsule by mouth every weekVitamin D2 50,000 intl units (1.25 mg) oral capsule International_Unit cap(s), Oral, qWeek Start Date: 04/21/23 Status: Ordered Medication Dispense Status: Completed Total Allowed Fills: 1 Fills Dispensed: 0Start: 35-08-3811bkwd 1 capsule by mouth every weekVitamin D2 50,000 intl units (1.25 mg) oral capsule International_Unit cap(s), Oral, qWeek Start Date: 04/21/23 Status: Ordered Repeat number: 1Start: 58-32-0327wryt 1 capsule by mouth every weekVitamin D2 50,000 intl units (1.25 mg) oral capsule International_Unit cap(s), Oral, qWeek Start Date: 04/21/23 Status: Ordered Completed/Discontinued Medications MedicationDrug Class(es)DatesSig (Normalized)Sig (Original)atenolol 50 mg oral tablet (20 sources)beta-Adrenergic BlockerStart: 03-22-2021 End: 08-32-7670qtky 1 tablet by mouth once dailyAtenolol 50 mg tablet Discontinued 50 MG PO Daily November 22, 2021 12:00am October 15, 2023 9:17amComment on above:atenolol 50 mg tabletbaclofen 10 mg oral tablet (20 sources)gamma-Aminobutyric Acid-ergic AgonistStart: 11-04-2021 End: 07-22-1627kepq 1 tablet by mouth once daily at bedtimeBaclofen 10 mg tablet Discontinued 10 MG PO Daily at bedtime November 22, 2021 12:00am August 15, 2024 10:38am muscle spasmsStart: 11-04-2021 End: 93-29-5058ufvj 1 mg by mouth three times dailybaclofen 10 mg Tab mg tab(s), Oral, TID, Refills(s) 0 Start Date: 11/04/21 Status: OrderedComment on above: baclofen 10 mg tabletciprofloxacin 500 mg oral tablet (2 sources)Quinolone AntimicrobialStart: 14-17-5428ogje 1 tablet by mouth once dailyCipro 500 mg Tab 500 mg = 1 tab(s), Oral, Daily, Take 1 tablet the day before the procedure and 1 tablet after the procedure, # 2 tab(s), Refills(s) 0, Pharmacy: [facility]/pharmacy #[id number], 178, cm, 08/30/2511:03:00 EDT, Height/Length Dosing, 90, kg, 08/29/24 12:03:00 EDT, Weight Dosing Start Date: 02/21/25 Status: Ordered Medication Dispense Status: Completed Quantity: 2.0 Unit: tab(s) Total Allowed Fills: 1 Fills Dispensed: 0Start: 05-13-2022 End: 01-92-7640wqyd 1 tablet by mouth twice dailyciprofloxacin HCl (CIPRO) 500 mg tablet Take 1 tablet by mouth twice daily for 14 days. 20 tablet 05/27/2022 ActiveComment on above:Take 1 tablet by mouth twice daily for 14 days.lisinopril 20 mg oral tablet (20 sources)Angiotensin Converting Enzyme InhibitorStart: 03-13-2025 End: 57-10-1431vqmy 1 tablet by mouth once dailyLisinopril 20 mg tablet Discontinued 20 MG PO Daily March 13, 2025 12:00am March 14, 2025 11 :06amStart: 03-25-2021 End: 22-89-8912ozuubmrhac (ZESTRIL, PRINIVIL) 20 mg tablet q 24 HR. 03/25/2021 12/15/2023 Discontinued (Discontinued by another Health Care Provider)Start: 03-25-2021 End: 38-96-3828bkva 1 tablet by mouth once dailyLisinopril 20 mg tablet Discontinued 20 MG PO Daily November 22, 2021 12:00am October 15, 2023 9:17am HTN Comment on above:q 24 HR.ofloxacin 3 mg/ml ophthalmic solution (6 sources)Quinolone AntimicrobialStart: 07-14-2024 End: 73-96-0481eisz 0.3 drop(s) into the eye(s) every six hoursOfloxacin 0.3 % drops Discontinued 2 DROPS EYE-LEFT Every 6 hours 5 0 July 14, 2024 1:00am August 15, 2024 10:38am 2 drps Left Eye;Start: 07-14-2024 End: 12-22-1659pwrc 0.3 drop(s) into the eye(s) every six hoursOfloxacin 0.3 % drops Discontinued 2 DROPS EYE-LEFT Every 6 hours July 14, 2024 1:00am August 15, 2024 10:38am 2 drps Left Eye;omeprazole 40 mg delayed release oral capsule (17 sources)Proton Pump InhibitorStart: 09-28-2023 End: 91-53-0127itqd 1 capsule by mouth once dailyOmeprazole 40 mg capsule,delayed release(DR/EC) Discontinued 40 MG PO Daily October 15, 2023 12:00am February 29, 2024 11:41amoxyCODONE hydrochloride 5 mg oral tablet (9 sources)Opioid AgonistStart: 12-02-2023 End: 86-85-5402rext 1 tablet by mouth every six hours as neededoxyCODONE IR (ROXICODONE) 5 mg immediate release tablet TAKE 1 TO 2 TABLETS BY MOUTH EVERY 6 HOURS NEEDED for up to 7 (SEVEN) days 12/02/2023 01/18/2025 Discontinued (Discontinued by Patient)pregabalin 50 mg oral capsule (20 sources)Start: 03-13-2025 End: 34-61-0855rwoh 1 capsule by mouth twice dailyPregabalin (Lyrica) 50 mg capsule Discontinued 50 MG PO Twice daily March 13, 2025 12:00am March 14, 2025 11:06amStart: 01-08-2023 End: 31-54-1866ngjo 1 capsule by mouth once daily at bedtimepregabalin (LYRICA) 75 mg capsule Take 1 capsule by mouth once daily. At bedtime. 0 01/08/202312/14 Discontinued (Discontinued by another Health Care Provider)Start: 11-22-2021 End: 44-72-3495dxmf 1 capsule by mouth twice dailyPregabalin 50 mg capsule Discontinued 50 MG PO Twice daily November 22, 2021 12:00am February 06, 2023 11:58am nerve painStart: 07-28-3160qndy 1 capsule by mouth twice dailyLyrica 25 mg Cap 25 mg = 1 cap(s), Oral, BID, # 60 cap(s), Refills(s) 0 Start Date: 11/04/21 Status: OrderedComment on above:Take 50 mg by mouth twice daily.Take 1 capsule by mouth once daily. At bedtime.Take 50 mg by mouth two times a day.regadenoson (Lexiscan) injection 0.4 mg (2 sources)Start: 06-18-2023 End: 90-64-5406slbcnbktdkt (Lexiscan) injection 0.4 mgterazosin 10 mg oral capsule (20 sources)alpha-Adrenergic BlockerStart: 10-04-2021 End: 42-88-2746vpbf 1 capsule by mouth once daily at bedtimeTerazosin 10 mg capsule Discontinued 10 MG PO Daily at bedtime November 22, 2021 12:00am October 15, 2023 9:17am ProstateStart: 49-31-7795dumi 1 mg by mouth once daily at bedtime terazosin 2 mg Cap mg cap(s), Oral, Once a day (at bedtime), Refills(s) 0 Start Date: 03/22/21 Status: Orderedvarenicline 1 mg oral tablet (13 sources)Partial Cholinergic Nicotinic AgonistStart: 10-22-2023 End: 48-71-4429gsbd 1 tablet by mouth onceVarenicline Tartrate (Chantix Starting Month Box) 0.5 mg (11)- 1 mg (42) tablets,dose pack Discontinued 0 PO per package directions February 29, 2024 12:00am August 15, 2024 10:38am PO PER PKG DIRVarenicline Tartrate (Chantix Starting Month Box) 0.5 mg (11)- 1 mg (42) tablets,dose pack (3 sources)Start: 02-29-2024 End: 23-94-1532skrr 1 tablet by mouth onceVarenicline Tartrate (Chantix Starting Month Box) 0.5 mg (11)- 1 mg (42) tablets,dose pack Discontinued 0 PO per package directions February 29, 2024 12:00am August 15, 2024 10:38am PO PER PKG DIRStart: 83-04-6070gcgq 1 tablet by mouth onceVarenicline Tartrate (Chantix [...] Translations: [Umbilical hernia without obstruction or gangrene]Onset: 554920-24-8893RfxybgpkLrbhe cerebrovascular disease (20 sources)Cerebrovascular accident; Translations: [Cerebral infarction, unspecified]Onset: 625539-90-0418OsnbhezCcgzrjp disorders (20 sources)Anxiety; Translations: [Anxiety disorder, unspecified]Onset: 072760-71-3153XpmuxluEcqewl of prostate (20 sources)Malignant neoplasm of prostate; Translations: [Malignant tumor of prostate]Onset: 07-74-7801TmsgwqzGnpzpki on above:hx radiation treatmentsCancer of prostate (20 sources)History of malignant neoplasm of prostate; Translations: [Personal history of malignant neoplasm ofprostate]Onset: 49-92-7319UqpezhhiMmyoudli (20 sources)Age-related nuclear cataract of left eye; Translations: [Age-related nuclear cataract, left eye]Onset: 740495-64-2217BilqahkWjbhrst kidney disease (20 sources)Chronic kidney disease stage 3; Translations: [Stage 3 chronic kidney disease]Onset: 430836-18-7559MnwivpuUezlldx kidney disease (6 sources)Chronic kidney disease; Translations: [Chronic kidney disease, stage III (moderate)]Onset: 10-24-2021 Resolved: 00-36-5056Ooyrkeom atherosclerosis and other heart disease (20 sources)History of myocardial infarction; Translations: [Old myocardial infarction]Onset: 459570-83-9494KkzematYeaeqevosk and other anemia (1 source)Anemia in chronic kidney disease; Translations: [Anemia in chronic kidney disease]Onset: 65-16-3233DzxavutGpyenycno of lipid metabolism (20 sources)Hyperlipidemia; Translations: [Dyslipidemia]Onset: 10-24-2021 Resolved: 190930-29-8633LaggepnBbhgipdszw disorders (18 sources)Gastroesophageal reflux disease without esophagitis; Translations: [Gastro-esophageal reflux disease without esophagitis]Onset: 09-28-2023 45-35-1163GnvhvspZqgdxxlfn hypertension (20 sources)Hypertensive disorder; Translations: [Essential (primary) hypertension]Onset: 593667-22-5740ZmkmbpiXnsmsqaolqhlj symptoms and ill- defined conditions (20 sources)Nocturia; Translations: [Nocturia]Onset: 58-56-0623Hlabvqfg Hyperplasia of prostate (20 sources)Benign prostatic hypertrophy with outflow obstruction; Translations: [Benign prostatic hyperplasia with lower urinary tract symptoms]Onset: 19-83-9600UrojqxnRpnbvjtjaurc with complications and secondary hypertension (20 sources)Chronic kidney disease due to hypertension; Translations: [Hypertensive chronic kidney disease withstage 1 through stage 4 chronic kidney disease, or unspecified chronic kidney disease]Onset: 10-24-2021 Resolved: 32-04-8847UctbftdMfmfbadtrgfy conditions of male genital organs (20 sources)Chronic prostatitis; Translations: [Chronic prostatitis]Onset: 342512-60-0004DbdeqdiLnvjyamzpqnw conditions of male genital organs (14 sources)Qgkovvikxfb96-94-4476OioyuxnoPdpnqdmpe; nephrosis; renal sclerosis (5 sources)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; Translations: [Nephrotic syndromewith diffuse mesangiocapillary glomerulonephritis]Onset: 221934-49-9661GbgebqdFznc wounds of head; neck; and trunk (6 sources)Laceration of left cornea; Translations: [Ocular laceration without prolapse or loss of intraoculartissue, left eye, initial encounter]07-14-2024 EpisodicOther acquired deformities (1 source)Lumbar spondylolisthesis; Translations: [Spondylolisthesis, lumbar region]63-57-7827HkcqlzxmTlmda acquired deformities (1 source)Spondylolisthesis, lumbar region; Translations: [Spondylolisthesis of lumbar region]Onset: 31-41-0994FzaklczxPqsxl aftercare (1 source)Encounter for surgical aftercare following surgery on the circulatory systemEpisodicOther and ill-defined heart disease (20 sources)Heart disease; Translations: [Heart disease, unspecified]Onset: 06-04-2023 Resolved: 183058-92-7421PmqoalcIgfxf circulatory disease (20 sources)Disorder of carotid artery; Translations: [Disorder of arteries and arterioles, unspecified]Onset: 952460-15-7608QwjjsqdHmmsi circulatory disease (4 sources)Disorder of arteries and arterioles, unspecified; Translations: [Disorder of arteries and arterioles, unspecified (CMS/HCC)]Onset: 06-04-2023 ChronicOther connective tissue disease (3 sources)Muscle pain; Translations: [Myalgia, unspecified site]03-14-2025 EpisodicOther diseases of kidney and ureters (16 sources)Secondary hyperparathyroidism; Translations: [Secondary hyperparathyroidism of renal origin]08-05-7811VfhyrmjSejua diseases of kidney and ureters (6 sources)Secondary hyperparathyroidism of renal origin; Translations: [Secondary hyperparathyroidism (of renal origin)]Onset: 10-24-2021 Resolved: 54-88-6888PsdhhqqPsrth diseases of kidney and ureters (1 source)Urinary tract obstruction; Translations: [Other obstructive and reflux uropathy]Onset: 58-24-5768AbasrhxhKmoim diseases of kidney and ureters (20 sources)Kidney disease; Translations: [Disorder of kidney and ureter, unspecified]Onset: 009601-73-7971ZrjnznclIxtan male genital disorders (20 sources)Male erectile dysfunction, unspecified; Translations: [Erectile dysfunction]Onset: 75-76-3461HtvyrlfVuhdr nervous system disorders (20 sources)Chronic pain syndrome; Translations: [Chronic pain syndrome]Onset: 283830-15-7378BxnzstiYcqda nervous system disorders (1 source)Other chronic pain; Translations: [OTHER CHRONIC PAIN]Onset: 41-96-1496GlhsqxgOtpck nutritional; endocrine; and metabolic disorders (4 sources)Overweight in adulthood with body mass index of 25 or more but less than 30; Translations: [Body mass index (BMI) 28.0-28.9, adult]Onset: 08-18-2023 81-05-4001AweyadzdBokmjxdsnz and visceral atherosclerosis (20 sources)Peripheral vascular disease, unspecified; Translations: [Peripheral vascular disease, unspecified]Onset: 04-27-2023 Resolved: 260541-41-8577TxlqhhfSyarcst on above:legsResidual codes; unclassified (1 source)Other specified postprocedural statesEpisodicResidual codes; unclassified (1 source)Family history of ischemic heart disease and other diseases of the circulatory systemEpisodicSpondylosis; intervertebral disc disorders; other back problems (11 sources)Spondylosis without myelopathy or radiculopathy, lumbar region; Translations: [Other intervertebraldisc degeneration, lumbar region]Onset: 97-61-6807QohjnimXnbzuxjbc-related disorders (20 sources)Smoker; Translations: [Nicotine dependence, unspecified, uncomplicated]Onset: 440880-23-8305DufjdagPrtwdhn on above:Added secondary to documentation in Social History.Unclassified (15 sources)Finding of sensation of misrbod14-72-1468Tpjunmcbxqgu (4 sources)LOW BACK PAIN, UNSPECIFIED; Translations: [LOW BACK PAIN, UNSPECIFIED]Onset: 26-60-9433Jucgtlmclino (1 source)CONTACT W/AND (SUSP) EXPOS COVID-19; Translations: [CONTACT W/AND (SUSP) EXPOS COVID-19]Onset: 60-71-0257Jbcjgawddnun (1 source)CHRN KIDNEY DISEASE STG 3 UNSP; Translations: [CHRN KIDNEY DISEASE STG 3 UNSP]Onset: 08-49-2561Rahlynwcwcij (1 source)Foreign body sensation, unspecified; Translations: [Foreign body sensation, unspecified]Onset: 98-81-1252Mbwatrj tract infections (20 sources)Urinary tract infectious disease; Translations: [Urinary tract infection, site not specified]Onset: 40-08-0057Cedyknvz Past or Other Problems Problem ClassificationProblemDateDocumented DateEpisodic/ChronicCardiac dysrhythmias (20 sources)Bradycardia; Translations: [Bradycardia, unspecified]Onset: 314336-73-2144TbogtlniTscitqvm mellitus without complication (16 sources)High glucose level in blood; Translations: [Hyperglycemia, unspecified]Onset: 163383-93-8990BsldxkwdInqt disorders (15 sources)Mood disordersOnset: 165242-29-5369Rrdkkcvvfhp chest pain (9 sources)Chest discomfort; Translations: [Other chest pain]Onset: 06-04-2023 26-02-0508VditugzeEcbkr connective tissue disease (4 sources)Other muscle spasm; Translations: [OTHER MUSCLE SPASM]Onset: 26-87-8216VagxycalYzhdq connective tissue disease (16 sources)Synovial cyst of lumbar spine; Translations: [Other bursal cyst, other site]Onset: 830395-81-0349BsbswkpnQaxio nutritional; endocrine; and metabolic disorders (2 sources)Body mass index (BMI) 28.0-28.9, adult; Translations: [Body mass index (BMI) 28.0-28.9, adult]Onset: 44-61-4201ZezdfszqCruclzsx codes; unclassified (18 sources)Tobacco user; Translations: [Tobacco use]Onset: EpisodicResidual codes; unclassified (16 sources)Weight change finding; Translations: [Other general symptoms and signs]Onset: 30-99-903846731351-99-1049NtarooxrEjrebklaxac; intervertebral disc disorders; other back problems (20 sources)Spinal stenosis, lumbar region without neurogenic claudication; Translations: [Intervertebral disc disorders with radiculopathy, lumbar region] Onset: 34-31-5272WhdxtmymXpaogcmlqpvr (1 source)LOW BACK PAIN, UNSPECIFIED; Translations: [LOW BACK PAIN, UNSPECIFIED] Onset: 43-37-8306Gpvaasggwhxy (5 sources)Onset: 06-04-2023 Resolved: Results Test NameValueInterpretationReference RangeFacilityUrology Office/Clinic Noteon 39-90-5226Pgbodpc Office/Clinic NoteUrology Office/Clinic Note Chief Complaint Review [...] [facility] [address] [place] [address]- Additional Instructions: 6 mos with another PSA [...] bladder emptying Follicular cystit (more content not included)...[facility] HospitalComment on above:Result Comment: Electronically Signed By: Barbara JOHNSTON MD\.br\Date and Time Signed: 04/03/25 12:46 EST\.br\Electronically Co- Signed By: Fauzia Leon\.br\Date and Time Co-Signed: 04/03/25 12:44 EST Ambulatory Visit Summaryon 37-96-6454Jzbhgzpxyy Visit SummaryAmbulatory Visit Summary YESENIA BROUSSARD :1945 Visit Date:03/29/2025 Ambulatory Visit Instructions Your Care Team Attending Physician - Barbara JOHNSTON MD Primary Care Physician - AMBROSIO SCALES CNP This Is Your Medications List acetaminophen-hydrocodone ([place] 5/325 Tab) amlodipine (amLODIPine 10 mg Tab) [...] Barbara JOHNSTON MD Where: [facility] [address] [address]- Thursday 9:45 AM EST With: Barbara JOHNSTON MD Where: [facility] [address] [address]- Medications What How Much When Instructions Unchanged acetaminophen-hydrocodone ([place] 5/ 325 Tab) By Mouth Every 6 [...] signed up for this yet, please contact [employer] at [phone] to get signed up today. Language Information Language assistance services are available as needed. [facility] 03-23-2025 Specimen: [id number] Received: 03/23/25 Status: ALIE Deandre Num: [id number] Spec Type: Surgical Subm Dr: Barbara Johnston MD Tissues: A Urinary Bladder - TUR (BLADDER TUMOR) Procedures: KAYLA, Gross/Shira L5 Age/ Patient Sex Location Account Attending Physician Yesenia Broussard 79/M [facility]ELL [id number] Barbara Johnston MD SPEC NUM: [id number] RECD: 03/23/25 STATUS: ALIE LUCIA NUM: [id number] MICHAEL: 03/23/[address] [facility] [address]: Barbara Johnston MD ENTERED: 03/23/[address] [facility] [address]: Bryan Arias SPEC TYPE: Surgical DEPT: [facility] ENTERED BY: [id number] RECV BY: [id number] ORDERED: HE, Gross/Micro L5 ORDERED: HE, Gross/Micro [...] submitted in a single cassette. (1, danielle, [id number] A) J Microscopic Description Microscopic examination is performed. CPT Codes 86238 Specimen: [id number] Received: 03/23/25 Status: ALIE Lucia Num: [id number] Spec Type: Surgical Subm Dr: Barbara Johnston MD Tissues: A Urinary Bladder - TUR (BLADDER TUMOR) Procedures: Yari GARZA/Shira L5 Patient: Yesenia Broussard [id number] (Continued) Signed (signature on file) Mani Hernandez MD 03/24/25 1305Normal [facility] Physician GroupFollow-Upon [id number]-[id number] Yesenia Broussard 1945 M Date Provider Department Center 03/15/2025 Fabio-VASILE MADERA ONC DCC Family History Problem Relation Age of Onset Hypertension Mother Diabetes Father Family Status - Relation Status Age at Mother Father Level of Service:15322 DE OFFICE/OUTPATIENT ESTABLISHED LOW MDM 20 [facility] HospitalAct[facility] partial thromboplastin time (aPTT) in platelet poor plasma by coagulation aOrdered By: Barbara Johnston on 03-13-2025 aPTT Coag (PPP) [Time]24.5 s22.3-36.2FOhioHealth Southeastern Medical CenterBasophils Auto (Bld) [#/Vol]Ordered By: Barbara Johnston on 42-61-4656Etkitwzcn (Bld) [#/Vol]0.0 10 3/uL0.0-0.1FOhioHealth Southeastern Medical CenterBasophils/100 WBC Auto (Bld)Ordered By: Barbara Johnston on 96-33-9100Lyixonaar/100 WBC (Bld)0.3 % 0.2-2.0[facility] HospitalEosinophils/100 WBC Auto (Bld)Ordered By: Barbara Johnston on 55-51-8798Kwnwbhylczd/100 WBC (Bld)3.2 %0.9-7.0[facility] HospitalErythrocyte distribution width Auto (RBC) [Ratio]Ordered By: Barbara Johnston on 96-06-3694Bjfgsxikkzu distribution width (RBC) [Ratio]13.5 %11.0-15.0[facility] HospitalGlomerular filtration rate (GFR) estimation in non- AmericanOrdered By: Barbara Johnston on 03-13-2025 GFR/1.73 sq M.predicted among non-blacks MDRD (S/P/Bld) [Vol rate/Area]29 mL/min/{1.73_m2}Low>=60 mL/min/1.73m 2FOhioHealth Southeastern Medical Center Hematocrit Auto (Bld) [Volume fraction]Ordered By: Barbara Johnston on 03-13-2025 Hematocrit (Bld) [Volume fraction]36.4 %Low42.0-54.0[facility] HospitalHemoglobin [Mass/volume] in BloodOrdered By: Barbara Johnston on 03-13-2025 Hemoglobin (Bld) [Mass/Vol]12.0 g/dLLow14.0-18.0[facility] HospitalINR in Platelet poor plasma by Coagulation assayOrdered By: Barbara Johnston on 65-59-5126BAT Coag (PPP) [Relative time]0.97 {INR}[facility] HospitalComment on above:DESIRED INR:2.0-3.0 CONDITIONS NOT LISTED BELOW2.5-3.5 FOR PROSTHETIC HEART VALVE REPLACEMENT2.5-3.5 RECURRENT THROMBOSISLaboratory - Chemistry and Chemistry - challengeOrdered By: Barbara Johnston on 03-13-2025 Calcium [Mass/Vol]8.5 mg/dL8.5-10.1FOhioHealth Southeastern Medical CenterChloride [Moles/Vol]109 mmol/ZWuac51-110BsavzirjfLancaster Municipal HospitalCO2 [Moles/Vol] 23.3 mmol/L21.0-32.0[facility] HospitalCreatinine [Mass/Vol]2.20 mg/dLHigh0.70-1.30[facility] HospitalGFR/1.73 sq M.predicted MDRD (S/P/Bld) [Vol rate/Area]35 mL/min/{1.73_m2}Low>=60 mL/min/1.73m 2FOhioHealth Southeastern Medical CenterGlucose [Mass/Vol]148 mg/eFHugy30-304NijlyfjnsLancaster Municipal HospitalPotassium [Moles/Vol]4.6 mmol/L3.5-5.1FThe Bellevue Hospitalodium [Moles/Vol]142 mmol/C594-174OzflaowrzLancaster Municipal HospitalUrea nitrogen [Mass/Vol]25.0 mg/dLHigh7.0-18.0[facility] HospitalUrea nitrogen/Creatinine [Mass ratio]11.4 mg/mgLancaster Municipal Hospital Laboratory - Hematology and Cell countsOrdered By: Barbara Johnston on 03-13-2025 Immature granulocytes/100 WBC (Bld)0.4 %0.0-0.5FOhioHealth Southeastern Medical Center Leukocytes [#/volume] corrected for nucleated erythrocytes in Blood by Automated counOrdered By: Barbara Johnston on 71-36-9424EUY corrected for nucl RBC Auto (Bld) [#/Vol]7.4 10 3/uL4.0-11.0[facility] HospitalLymphocytes Auto (Bld) [#/Vol]Ordered By: Barbara Johnston on 08-24-9858Cmzoxwerebc (Bld) [#/Vol]1.2 10 3/uL1.2-3.8[facility] HospitalLymphocytes/100 WBC Auto (Bld)Ordered By: Barbara Johnston on 42-63-8492Tvxegzguctw/100 WBC (Bld)16.2 %Low20.5-60.0[facility] Medical CenterH Auto (RBC) [Entitic mass] Ordered By: Barbara Johnston on 05-28-8205MWI (RBC) [Entitic mass]31.3 pg25.9-34.0 [facility] HospitalMCHC Auto (RBC) [Mass/Vol]Ordered By: Barbara Johnston on 06-62-4165NLUA (RBC) [Mass/Vol]33.0 g/dL29.9-35.2FOhioHealth Southeastern Medical CenterMCV Auto (RBC) [Entitic vol]Ordered By: Barbara Johnston on 18-97-8089KOV (RBC) [Entitic vol]95.0 jGAniu00.0-94.0[facility] HospitalMonocytes Auto (Bld) [#/Vol]Ordered By: Barbara Johnston on 03-13-2025 Monocytes (Bld) [#/Vol]0.6 10 3/uL0.3-0.8[facility] Monocytes/100 WBC Auto (Bld)Ordered By: Barbara Johnston on 03-13-2025 Monocytes/100 WBC (Bld)8.1 %1.7-12.0[facility] HospitalNeutrophils Auto (Bld) [#/Vol]Ordered By: Barbara Johnston on 97-42-6512Jhlhzemsida (Bld) [#/Vol]5.3 10 3/uL1.4-6.5FOhioHealth Southeastern Medical CenterNeutrophils/100 WBC Auto (Bld)Ordered By: Barbara Johnston on 14-43-0324Dmgianjvstw/100 WBC (Bld)71.8 %43.0-75.0[facility] HospitalNo Panel InformationOrdered By: Barbara Johnston on 85-28-6657Snwgsvagmbv # (Auto)0.2 10 3/uL0.0-0.7FOhioHealth Southeastern Medical CenterImmature Granulocyte # (Auto)0.03 10 3/uL0.00-0.03 [facility] HospitalPlatelet mean volume Auto (Bld) [Entitic vol] Ordered By: Barbara Johnston on 03-04-3048Ekcyfbvw mean volume (Bld) [Entitic vol] 10.6 fL9.5-13.5FOhioHealth Southeastern Medical CenterPlatelets Auto (Bld) [#/Vol] Ordered By: Barbara Johnston on 37-68-0765Ridvasvlt (Bld) [#/Vol]266 10 3/uL 150-450[facility] HospitalProthrombin time (PT)Ordered By: Barbara Johnston on 35-68-0800VL Coag (PPP) [Time]10.3 s9.0-11.6FOhioHealth Southeastern Medical CenterRBC Auto (Bld) [#/Vol]Ordered By: Barbara Johnston on 14-22-1142OZH (Bld) [#/Vol]3.83 10 6/uLLow4.70-6.10[facility] Memorial Hospitalerum or plasma anion gap determinationOrdered By: Barbara Johnston on 43-12-7796Ybumy gap [Moles/Vol]14.3 mmol/[facility] HospitalMain OR Intraoperative Recordon 66-36-0612Szzu OR Intraoperative RecordMain OR Intraoperative Record IntraOp Document Type FTURO Summary Primary Physician: Barbara JOHNSTON MD Finalized Date/Time: 03/07/25 14:17:54 Pt. Name: YESENIA BROUSSARD/Sex: 1945 Male Med Rec #: [id number] Physician: Barbara JOHNSTON MD Financial #: [id number] Pt. Type: O Room/Bed: / Admit/Disch: 03/07/25 [...] Kendall R Role Performed Surgeon - Primary Tobacco Baler - Primary Scrub - Primary Time In [...] Prep Agents Betadine Scrub Skin. Condition Intact, [place], Warm, & Dry Additional None Specimens Collected [...] Document Signatures Signed By: Ethan Bundy 03/07/25 14:17[facility] HospitalMain OR Preoperative Recordon 51-18-9389Hvcf OR Preoperative RecordMain OR Preoperative Record Holding Area Document Type FTURO Summary Primary Physician: Barbara JOHNSTON MD Finalized Date/Time: 03/07/25 13:56:28 Pt. Name: YESENIA BROUSSARD/Sex: 1945 Male Med Rec #: [id number] Physician: Barbara JOHNSTON MD Financial #: [id number] Pt. Type: O Room/Bed: / Admit/Disch: 03/07/25 [...] Document Signatures Signed By: Zakiya Dumas 03/07/25 13:56NoParma Community General HospitalOperative Reporton 88-71-8357Fmraeijzr ReportOperative Report Patient: YESENIA BROUSSARD Age: 79 [...] and transurethral resection of bladder lesions under anesthesia..[facility] HospitalComment on above:Result Comment: Electronically Signed By: PRESTON MAK, Barbara Coy.br\Date and Time Signed: 03/07/25 14:22 EDTGlomerular filtration rate (GFR) estimation in non- AmericanOrdered By: Barbara Johnston on 36-66-8615IGF/1.73 sq M.predicted among non-blacks MDRD (S/P/Bld) [Vol rate/Area]30 mL/min/{1.73_m2}Low>=60 mL/min/1.73m [address] [place], [place] [address]Laboratory - Chemistry and Chemistry - challengeOrdered By: Barbara Johnston on 12-61-9792Pobllqbgpo [Mass/Vol]2.14 mg/dL High0.70-1.30[facility] HospitalGFR/1.73 sq M.predicted MDRD (S/P/Bld) [Vol rate/Area]36 mL/min/{1.73_m2}Low>=60 mL/min/1.73m [address] [place] [address] 43-65-2447SamnoroygWbnytporc From: Bhavana Banks To: TRISTIN Johnston; Sent: [...] Pt [place] Ct [place] [facility] [place]. Not sure what was ordered. Report not available yet. Pt sched for 03/07/25 at [facility] for cysto Order faxed to [facility] Ct [facility]gram.[facility] OhioCT Lumbar spine WO contraston 71-25-8151[place] [address] [place] Scan Report Signed Patient: YESENIA BROUSSARD MR#: [id number] : 1945 Acct:[id number] Age/Sex: 79 / M ADM Date: 02/21/25 Loc: CT Attending Dr: Loco Ferrera NP Ordering Physician: Loco Ferrera NP Date of Service: 02/21/25 Procedure(s): CT lumbar spine wo con Accession Number(s): [id number] cc: Shaikh Joanna Storm [place] [address] Patient Name: YESENIA BROUSSARD MRN: [id number] date: 1945 Sex: M Assigned Patient Location: CT Current Patient Location: CT Accession/Order Number: [id number] Exam Date: 02/21/2025 10:02 Report Date: 02/21/2025 [...] Waite M.D. 02/21/2025 11:31 AM Dictation Location: [place] [address] Electronically authenticated by: [id number] Y Date: 02/21/2025 11:31 Dictated By: Lorelei Waite M.D. Signed By: 02/21/25 1134 DD/ 1131 (more content not included)...TBHRadiology, Radiologist, - 02/21/[address] [address] [address] Scan Report Signed Patient: YESENIA BROUSSARD MR#: [id number] : 1945 Acct:[id number] Age/Sex: 79 / M ADM Date: 02/21/25 Loc: CT Attending Dr: Loco Ferrera NP Ordering Physician: Loco Ferrera NP Date of Service: 02/21/25 Procedure(s): CT lumbar spine wo con Accession Number(s): [id number] cc: Shaikh Joanna Storm [place] [address] Patient Name: YESENIA BROUSSARD MRN: [id number] date: 1945 Sex: M Assigned Patient Location: CT Current Patient Location: CT Accession/Order Number: [id number] Exam Date: 02/21/2025 10:02 Report Date: 02/21/2025 [...] Waite M.D. 02/21/2025 11:31 AM Dictation Location: [place] [address] Electronically authenticated by: [id number] Y Date: 02/21/2025 11:31 Dictated By: Lorelei Waite M.D. Signed By: 02/21/25 1134 DD/ 1131 TD/TT: Electronics Test Engineer: [facility] HealthcareRadiology Study observation (narrative)[facility] HospitalCT Lumbar spine WO contrastOrdered By: Radiologist Radiology on 95-75-6639ZCTLBates County Memorial Hospital Work Phone: Erythrocyte distribution width Auto (RBC) [Ratio] Ordered By: Theo Thakkar on 82-83-5644Bmwrwkeewql distribution width (RBC) [Ratio]13.6 %11.0-15.0[facility] HospitalGlomerular filtration rate (GFR) estimation in non- AmericanOrdered By: Theo Thakkar on 85-91-8007HRR/1.73 sq M.predicted among non-blacks MDRD (S/P/Bld) [Vol rate/Area]34 mL/min/{1.73_m2}Low>=60 mL/min/1.73m [address] [place] [address] CBC WITH PLATELET NO DIFFERENTIALon 69-47-8049Xzgqlqhrcrv distribution width (RBC) [Ratio]13.6 %11.0 - 15.0 %[facility] HealthcareHematocrit (Bld) [Volume fraction]39.3 %Low42.0 - 54.0 %[facility] HealthcareHemoglobin (Bld) [Mass/Vol]12.9 g/dLLow14.0 - 18.0 g/dLBates County Memorial HospitalInterpretation and review of laboratory resultsAbnormalPershing Memorial HospitalH (RBC) [Entitic mass]30.9 pg25.9 - 34.0 pgPershing Memorial HospitalHC (RBC) [Mass/Vol]32.8 g/dL29.9 - 35.2 g/dLPershing Memorial HospitalV (RBC) [Entitic vol]94 fL80.0 - 94.0 fLBates County Memorial HospitalPlatelet mean volume (Bld) [Entitic vol]10.3 fL9.5 - 13.5 fLSSM Health Cardinal Glennon Children's Hospital LPW860OKWFMetropolitan Saint [facility]iatric [facility] RBC4.18LowSSM Health Cardinal [facility] NJH7GBORBates County Memorial HospitalCLINISYNCNOMS HealthcareHematocrit Auto (Bld) [Volume fraction]Ordered By: Theo Thakkar on 04-33-4013Zaibpskyje (Bld) [Volume fraction]39.3 %Low42.0-54.0[facility] HospitalHemoglobin [Mass/volume] in BloodOrdered By: Theo Thakkar on 60-43-9711Gwhwxbuyhn (Bld) [Mass/Vol]12.9 g/dLLow14.0-18.0[facility] HospitalIron binding capacity [Mass/volume] in Serum or PlasmaOrdered By: Theo Thakkar on 60-95-7879Nzuy binding capacity [Mass/Vol]354.0 ug/dL250.0-450.0 [facility] HospitalIron saturation [Mass Fraction] in Serum or PlasmaOrdered By: Theo Thakkar on 53-37-0726Ptsv saturation [Mass fraction]22.6 % [facility] HospitalLaboratory - Chemistry and Chemistry - challengeOrdered By: Theo Thakkar on 83-32-4426Zzqkwxppk Ql (U)SMALLAbnormal NEGATIVELancaster Municipal HospitalGlucose (U) [Mass/Vol]NegativeNEGATIVE [facility] HospitalKetones Ql (U)TRACE mg/dLAbnormalNEGATIVE [facility] HospitalpH (U)5.5 [pH]5.0-9.0McC[facility]de Memorial Hospitalpecific gravity (U) [Rel density]1.0251.005-1.025L[facility] HospitalUrobilinogen Qn (U)0.2 {Jing'U}/dL0.2-1.0[facility] HospitalAlbumin [Mass/Vol]3.8 g/dL3.4-5.0[facility] Calcium [Mass/Vol]9.2 mg/dL8.5-10.1FOhioHealth Southeastern Medical CenterChloride [Moles/Vol]106 mmol/B44-654HxnpntivhLancaster Municipal HospitalCO2 [Moles/Vol]23.6 mmol/L21.0-32.0[facility] HospitalCreatinine [Mass/Vol]1.93 mg/dL High0.70-1.30[facility] HospitalFerritin [Mass/Vol]45.0 ng/mL 26.0-388.0[facility] HospitalGFR/1.73 sq M.predicted MDRD (S/P/Bld) [Vol rate/Area]41 mL/min/{1.73_m2}Low>=60 mL/min/1.73m 2FOhioHealth Southeastern Medical CenterGlucose [Mass/Vol]105 mg/zM36-605GfivvlwcbLancaster Municipal HospitalIron [Mass/Vol]80.0 ug/dL65.0-175.0[facility] HospitalMagnesium [Mass/Vol]2.0 mg/dL1.8-2.4FOhioHealth Southeastern Medical Center Potassium [Moles/Vol]5.2 mmol/LHigh3.5-5.1FOhioHealth Southeastern Medical Center Sodium [Moles/Vol]139 mmol/Z292-514LbgylxgcpLancaster Municipal HospitalUrate [Mass/Vol]6.6 mg/dL3.5-7.2FOhioHealth Southeastern Medical CenterUrea nitrogen [Mass/Vol]28.0 mg/dLHigh7.0-18.0[facility] HospitalUrea nitrogen/Creatinine [Mass ratio]14.5 mg/mgLancaster Municipal Hospital Laboratory - Specimen informationOrdered By: Theo Thakkar on 03-87-3162Qrjexjqvcu (U)SL CLOUDYCLETriHealthColor (U)LT. YELLOWYELAvita Health System Bucyrus HospitalLaboratory - UrinalysisOrdered By: Theo Thakkar on 94-84-3159Ohctmendm esterase Test strip Ql (U)LARGEAbnormalNEGATIVELancaster Municipal HospitalMucus Ql (Urine sed)NONE SEENNONE SEENLancaster Municipal HospitalNitrite Ql (U)NegativeNEGATIVELancaster Municipal Hospital Protein (U) [Mass/Vol]147.8 mg/dLHigh<=11.9[facility] Protein Ql (U)100 mg/dLAbnormalNEG/TRACELancaster Municipal Hospital Leukocytes [#/volume] corrected for nucleated erythrocytes in Blood by Automated counOrdered By: Theo Thakkar on 82-40-1339JCK corrected for nucl RBC Auto (Bld) [#/Vol]8.0 10 3/uL4.0-11.0[facility] Auto (RBC) [Entitic mass]Ordered By: Theo Thakkar on 47-25-9994IJH (RBC) [Entitic mass]30.9 pg25.9-34.0[facility] HospitalMC Auto (RBC) [Mass/Vol]Ordered By: Theo Thakkar on 68-40-0802KCDG (RBC) [Mass/Vol]32.8 g/dL29.9-35.2FOhioHealth Southeastern Medical CenterMCV Auto (RBC) [Entitic vol]Ordered By: Theo Thakkar on 89-48-8680JKE (RBC) [Entitic vol]94.0 fL80.0-94.0[facility] HospitalNo Panel InformationOrdered By: Theo Thakkar on 40-71-0994Ubkyc Bacteria SMALL #/HPFAbnormalNONE [facility] HospitalUrine Occult Blood TRACE-INEGATIVELancaster Municipal HospitalUrine Other CastsNONE SEEN #/LPF NONE [facility] HospitalUrine Other CrystalsNone Seen #/HPF None [facility] for RehabilitationUrine Random Adiasntptl798.61 mg/dL 20.00-300.00[facility] HospitalUrine RBC0-2 #/HPF0-[address] [place], [place] [address]Urine Squamous Epithelial CellsRARE #/LPFNONE/RARE [facility] HospitalUrine FTU91-59 #/HPFAbnormalNONE [facility]25-Hydroxy Vitamin D Total43.3 ng/mLLancaster Municipal HospitalComment on above:<20 ng/mL Vit D ffspokbwg15-<30 ng/mL Vit D dytutdxmaabg16-672 ng/mL Vit D sufficient>100 ng/mL Potential Toxicity Parathyroid Hormone (Intact)81 pg/pYFstkcmvh38-84NjlqdmpxvLancaster Municipal HospitalComment on above:Performed at: - Lab[address] [id number] Director: Rojelio Nelson PhD, Phone: [phone] Phosphorus Level3.9 mg/dL2.6-4.7FOhioHealth Southeastern Medical CenterPlatelet mean volume Auto (Bld) [Entitic vol]Ordered By: Theo Thakkar on 66-74-6386Ihqrjwkn mean volume (Bld) [Entitic vol]10.3 fL9.5-13.5FOhioHealth Southeastern Medical Center Platelets Auto (Bld) [#/Vol]Ordered By: Theo Thakkar on 58-92-2934Xeacmrfnd (Bld) [#/Vol]271 10 3/rG613-597KiyhwzcicLancaster Municipal HospitalRBC Auto (Bld) [#/Vol]Ordered By: Theo Thakkar on 47-67-6185AXQ (Bld) [#/Vol]4.18 10 6/uLLow 4.70-6.10McCullough-Hyde Memorial Hospitalerum or plasma anion gap determinationOrdered By: Theo Thakkar on 55-38-0433Hkabt gap [Moles/Vol]14.6 mmol/LFOhioHealth Southeastern Medical CenterUrine protein/creatinine ratioOrdered By: Theo Thakkar on 52-68-0441Lzguvsh/Creatinine (U) [Ratio]0.69L[facility] HospitalCNOVon 32-77-4061PZHDRqtmki Visit (MINDYA) YESENIA BROUSSARD ([id number]) 1945 M Date Time Provider Department 01/18/25 [...] by: Genoveva Nazario MD cc: Shaikh Dotty [address] [place] [address] Allergies As of Date: 01/18/2025 (No Known Allergies) Date Reviewed: 01/18/2025 Reviewed by: Kelly Hector MA - Fully Assessed Reason for Visit: Prostate Cancer [590] Cmt: Follow up Primary Visit Diagnosis:Cancer of prostate w/med recur risk (T2b-c or [place] 7 or PSA 10-20) (HCC) [C61] Order(s):PROSTATE-SPECIFIC ANTIGEN DIAGNOSTIC [SQPSA] Order #: [id number] FUTURE Prescriptions as of 01/18/2025 - HYDROcodone-acetaminophen [...] Service: OFFICE/OUTPATIENT ESTABLISHED LOW MDM 20 MIN [45248] Additional E/M codes: VISIT CPLX INHERENT EANDM ASSOC WITH MED * (more content not included)...NormalPeoples Hospital PSA SERPL-MCNC on 87-23-1049LKQ PSA SERPL-MCNC1.56 ng/mLNINF - 2.60 ng/mLNBAILEY MEDICAL CENTER – [place], [place] HealthcareComment on above:Total PSA test methodology used is the Electrochemiluminescence Immunoassay by [employer]. Total PSA values by differing methodologies cannot be interchanged.Specimen Type: BLOOD SPECIMEN Ordering Facility: [facility] Address: [address] [place] [address] Original Ordering Provider: Genoveva HUDSON [facility] SystemA SerPl-mCncon 75-06-3973Ssbgsimx specific Ag [Mass/Vol]1.56 ng/mLNormal<2.60 [facility] ColumbusComhur[facility] on above:Order Comment: Specimen Type: BLOOD SPECIMEN Ordering Facility: [facility] Address: [address] [place], [place] [address]Result Comment: Total PSA test methodology used is the Electrochemiluminescence Immunoassay by [employer]. Total PSA values by differing methodologies cannot be interchanged. Performed By: #### [id number] #### [facility] CLIA [id number] [address] [place], [place] [address] [place] [address] [place] STATES OF AMERICAUrine Cytology ( Labs)on 60-90-0191Pdzqpxlsyyr exam Cytology (U) [Interp]Diagnosis InfoInvalid Interpretation CodeFrancescoMedStar Harbor HospitalComment on above:Result Comment: A:Urine,Urine:Voided Interpretation - Adequate cellularity for evaluation. CPT 56337 MicroScopic Description - Adequacy - Gross Description Site ID:A color Yellow fixative Alcohol Specimen designated Urine received in alcohol preservative and labeled with the patient???s name, consists of 70ml clear yellow fluid. Electronically signed by : on: 09/02/2024 13:57:41Performed By: #### [id number] #### [facility] [address] [place], [place] [address]Ambulatory Visit Summaryon 45-03-6426Znkmukidnt Visit Summary Ambulatory Visit Summary YESENIA BROUSSARD :1945 Visit Date:08/29/2024 Ambulatory Visit Instructions Your Diagnosis Gross hematuria Your Care Team Attending Physician - CLAIRE JAMES PA-C Primary Care Physician - AMBROSIO SCALES CNP This Is Your Medications List acetaminophen-hydrocodone ([place] 5/325 Tab) amlodipine (amLODIPine 10 mg Tab) [...] MAK, Barbara Warner Where: [facility] [address] You Need to Schedule the Following Appointments Follow Up with [facility] Xenia When: Comments: For procedure as scheduled. Where: Medications What How Much When Instructions Unchanged acetaminophen-hydrocodone ([place] 5/ 325 Tab) By Mouth Every 6 [...] these instructions at home: Medicines ??? Take umxy-tav-axekrmt and prescription medicines only as told by [...] straining your urine to (more content not included)...NormalRiverview Health InstituteUrine Cytology ([facility])on 70-51-6959QO Method of ExtractionVoidedOhio State Harding HospitalComment on above:Performed By: #### [id number] #### [facility] [address] [place], [place] [address]YD Number of Kfxx1Gmdiksz Interpretation [facility] Anne HospitalComment on above:Performed By: #### [id number] #### [facility] [address] [place], [place] [address]GN SpecimenUrineNoParma Community General HospitalComment on above:Performed By: #### [id number] #### [facility] [address] [place], [place] [address]WG Type of ServiceTechnical OnlyOhio State Harding HospitalComment on above:Performed By: #### [id number] #### [facility] [address] [place], [place] [address]Ezeawuf Office/Clinic Noteon 43-72-2173Atkyakv Office/Clinic NoteUrology Office/Clinic Note Chief Complaint gross [...] E&M of Est. Patient Moderate 30-39 Min 06669 Urine Cytology ([facility]) Urnls Dip Stick Auto w/o Microscopy POC 67952 Follow-up With When Contact Information [facility] [place] Additional Instructions: For procedure as scheduled. Patient [...] 1 tab(s) nitroglycerin 0.4 mg sublingual Tab [place] 5/325 Tab, Oral, q6hr pravastatin 40 mg [...] (08/29/24 11:52:00) Blood U (more content not included)...[facility] Hard[facility] HospitalComment on above:Result Comment: Electronically Signed By: CLAIRE JAMES PA-C\Date and Time Signed: 08/29/2513:09 EDTC Urineon 44-11-4126Vyutvhfa identified Cx Nom (U)Microbiology PROCEDURE: Urine Culture [R1] SOURCE: U CleanCatch BODY SITE: COLLECTED DATE/TIME: 08/22/2024 16:34 EDT RECEIVED DATE/TIME: 08/23/2024 17:54 EDT START DATE/TIME: 08/23/2024 17:54 EDT FREE TEXT SOURCE: Stewart MCMULLEN, NITESH-C, Stewart MCMULLEN, RODEO PERFORMER-C, Cherie X Cherie X FINAL REPORTS Final Report [] Verified Date/Time: 08/25/2024 07:02 EDT 100 cfu/ml Mixed skin contaminants Performing Locations R1: This test was performed at: [facility], [address] [place] [address], [address] [place] [address], OtlzlfBvfzotParma Community General HospitalComment on above:Performed By: #### [id number] #### [facility] [address] [place], [place] [address]Ambulatory Visit Summaryon 20-08-6853Iwzwzbijnr Visit Summary Ambulatory Visit Summary YESENIA BROUSSARD :1945 Visit Date:08/22/2024 Ambulatory Visit Instructions Your Care Team Attending Physician - PRESTON MAK, Barbara Warner Primary Care Physician - AMBROSIO SCALES CNP This Is Your Medications List acetaminophen-hydrocodone ([place] 5/325 Tab) amlodipine (amLODIPine 10 mg Tab) [...] MAK, Barbara Warner Where: [facility] [address] [facility] [place] [address]- Medications What How Much When Instructions Unchanged acetaminophen-hydrocodone ([place] 5/ 325 Tab) By Mouth Every 6 [...] you for choosing us for your care. [facility] Harding HospitalFollow-Upon 28-88-9463Ttdawm-Up [id number] Yesenia Broussard 1945 M Date Provider Department Center 08/18/2024 NICKOLAS [facility] SURG Second Fl Family History Problem Relation Age of Onset Hypertension Mother Diabetes Father Family Status - Relation Status Age at Mother Father Level of Service:64362 DE OFFICE/OUTPATIENT ESTABLISHED LOW MDM 20 MIN Reason for Visit and Comments: Follow-up [118231][facility] Urineon 08-12-2024 Bacteria identified Cx Nom [...] Locations R1: This test was performed at: [facility], [address] [place] [address], [address] , [place], GhfzxuBkmfkkParma Community General HospitalComment on above:Performed By: #### [id number] #### [facility] [address] [place] [address]Basxfle [Mass/volume] in Serum or Plasma by Bromocresol green (BCG) dye binding methoOrdered By: Theo Thakkar on 64-08-5661Rgsncjl BCG dye [Mass/Vol]Albumin [Mass/volume] in Serum or Plasma by Bromocresol green (BCG) dye binding metho3.5-5.7FOhioHealth Southeastern Medical CenterAppearance of Urine Ordered By: Theo Thakkar on 70-18-5624Dcczgwfszf (U)Urine appearanceClear [facility] HospitalBacteria [Presence] in Urine by Automated Ordered By: Theo Thakkar on 19-87-9824Yteugdzx Auto Ql (U)Bacteria [Presence] in Urine by AutomatedNone SeenLancaster Municipal HospitalBilirubin Test strip Ql (U)Ordered By: Theo Thakkar on 79-33-4239Ifgypxvkc Ql (U)Bilirubin.total [Presence] in Urine by Test stripNegativeLancaster Municipal Hospital Calcium [Mass/volume] in Serum or PlasmaOrdered By: Theo Thakkar on 08-10-2024 Calcium [Mass/Vol]Calcium [Mass/volume] in Serum or Plasma8.6-10.3FOhioHealth Southeastern Medical CenterCarbon dioxide, total [Moles/volume] in Serum or Plasma Ordered By: Theo Thakkar on 96-14-1069UM8 [Moles/Vol]Carbon dioxide, total [Moles/volume] in Serum or Fxkoit08.0-31.0[facility] Chloride [Moles/volume] in Serum or PlasmaOrdered By: Theo Thakkar on 08-10-2024 Chloride [Moles/Vol]Chloride [Moles/volume] in Serum or Qidxrz93-888WczyddfovLancaster Municipal HospitalColor Auto (U)Ordered By: Theo Vivian on 54-42-2238Vreqt (U)Color of Urine by AutoYellowLancaster Municipal HospitalCreatinine [Mass/volume] in Serum or PlasmaOrdered By: Theo Vivian on 47-30-3071Crokyuondy [Mass/Vol]Creatinine [Mass/volume] in Serum or PlasmaHigh0.70-1.30L[facility] HospitalCreatinine [Mass/volume] in UrineOrdered By: Theo Vivian on 73-69-5680Aarhuvnjwl (U) [Mass/Vol]Creatinine [Mass/volume] in UrineLancaster Municipal HospitalComment on above:No reference range establishedDipstick and Microscopicon 91-74-7921Lljhokjkuq (U)ClearNormalClearThe [facility], [facility] Health Physician GroupComment on above:Order Comment: Name Collection Type:: Clean- Voided MidstreamPerformed By: #### ADDONUAPLUS, PROCRERAT, CUU #### [facility] [address] [place] [address] USABacteria,UrineNone SeenNormalNone SeenThe [facility], [facility] Health Physician GroupComment on above:Order Comment: Name Collection Type:: Clean- Voided MidstreamPerformed By: #### ADDONUAPLUS, PROCRERAT, CUU #### [facility] [address] [place] [id number] USABilirubin,UrineNegativeNormalNegativeThe [facility], [facility] Health Physician GroupComment on above:Order Comment: Name Collection Type:: Clean- Voided MidstreamPerformed By: #### ADDONUAPLUS, PROCRERAT, CUU #### [facility] [address] [place] [address] USAColor (U)Light-YellowNormalYellowThe [facility], [facility] Physician GroupComment on above:Order Comment: Name Collection Type:: Clean-Voided MidstreamPerformed By: #### ADDONUAPLUS, PROCRERAT, CUU #### [place] [address] USAGlucose Ql (U)NormalNormalNormalThe [facility], [facility] Health Physician GroupComment on above:Order Comment: Name Collection Type:: Clean-Voided MidstreamPerformed By: #### ADDONUAPLUS, PROCRERAT, CUU #### [place] [address] USAHyaline Casts,Nojfa3-0Webljp9-4Jqs [facility] Physician GroupComment on above:Order Comment: Name Collection Type:: Clean-Voided MidstreamPerformed By: #### ADDONUAPLUS, PROCRERAT, CUU #### [place] [address] USAKetones Ql (U)NegativeNormalNegativeAdventhealth For Children Physician GroupComment on above:Order Comment: Name Collection Type:: Clean- Voided MidstreamPerformed By: #### ADDONUAPLUS, PROCRERAT, CUU #### [place] [address] USALeukocyte esterase Test strip Ql (U)2+HighNegativeThe [facility], [facility] Physician GroupComment on above:Order Comment: Name Collection Type:: Clean-Voided MidstreamPerformed By: #### ADDONUAPLUS, PROCRERAT, CUU #### [place] [address] USAMucus,UrineRareNormalThe [facility], [facility] Physician GroupComment on above:Order Comment: Name Collection Type:: Clean-Voided MidstreamResult Comment: PERFORMED BY: [place] [address] PATHOLOGIST SENIOR IOS DEVELOPER ROS GUNDERSON M.D.Performed By: #### ADDONUAPLUS, PROCRERAT, CUU #### [place] [address] USANitrite,UrineNegativeNormalNegativeThe [facility], [facility] Health Physician GroupComment on above:Order Comment: Name Collection Type:: Clean-Voided MidstreamPerformed By: #### ADDONUAPLUS, PROCRERAT, CUU #### [facility] [address] [place] [address] USAOccult Blood,Urine1+HighNegativeThe [facility], [facility] Physician GroupComment on above:Order Comment: Name Collection Type:: Clean-Voided MidstreamPerformed By: #### ADDONUAPLUS, PROCRERAT, CUU #### [place] [address] USApH (U)6.0 [pH]Normal5.0-9.0The [facility] Comment on above:Order Comment: Name Collection Type:: Clean-Voided Midstream Performed By: #### ADDONUAPLUS, PROCRERAT, CUU #### [place] [address] USAProtein (U) [Mass/Vol]50 mg/dLHighNegativeThe [facility], [facility] Physician GroupComment on above:Order Comment: Name Collection Type:: Clean- Voided MidstreamPerformed By: #### ADDONUAPLUS, PROCRERAT, CUU #### [place] [address] USARBC,Gupby4-9Mghe8-3Azr [facility] Physician GroupComment on above:Order Comment: Name Collection Type:: Clean-Voided MidstreamPerformed By: #### ADDONUAPLUS, PROCRERAT, CUU #### [place] [address] USASpecificy Weed,Urine1.161Mazapg1.001-1.030The [facility], [facility] Physician GroupComment on above:Order Comment: Name Collection Type:: Clean- Voided MidstreamPerformed By: #### ADDONUAPLUS, PROCRERAT, CUU #### [place] [address] USAUrobilinogen,UrineNormalNormalNormalThe [facility], [facility] Physician GroupComment on above:Order Comment: Name Collection Type:: Clean- Voided MidstreamPerformed By: #### ADDONUAPLUS, PROCRERAT, CUU #### [place] [address] USAWBC CLUMP, UrineOccasionalHighNone SeenThe [facility], [facility] Physician GroupComment on above:Order Comment: Name Collection Type:: Clean- Voided MidstreamPerformed By: #### ADDONUAPLUS, PROCRERAT, CUU #### [facility] [address] [place] [address] USAWBC,Gkvvo56-15Dmkv3-5Zbx [facility] Physician GroupComment on above:Order Comment: Name Collection Type:: Clean-Voided MidstreamPerformed By: #### ADDONUAPLUS, PROCRERAT, CUU #### [facility] [address] [place] [address] USAEpithelial cells.squamous [#/area] in Urine sediment by Automated countOrdered By: Theo Thakkar on 23-22-4869Nqveqcptdv cells.squamous Auto (Urine sed) [#/Area]Epithelial cells.squamous [#/area] in Urine sediment by Automated countLancaster Municipal HospitalErythrocyte distribution width Auto (RBC) [Ratio]Ordered By: Theo Thakkar on 52-69-8213Dybpbkrdifr distribution width (RBC) [Ratio]Erythrocyte distribution width [Ratio] by Automated countHigh 12.0-14.8L[facility]aster Municipal HospitalErythrocytes [#/area] in Urine sediment by Automated countOrdered By: Theo Thakkar on 89-05-7888YXU Auto (Urine sed) [#/Area]Erythrocytes [#/area] in Urine sediment by Automated countHigh0-4 [facility] HospitalFerritinon 51-71-7834Cxayibux [Mass/Vol]14.0 ng/mLLow23.9-336.2The [facility], [facility] Physician GroupComment on above:Performed By: #### MG, JFWU78WQ, URIC, CBCNO, JAVIER, FE and TIBC, PTH, RENAL #### [facility] [address] [place] [address] USAFerritin [Mass/volume] in Serum or PlasmaOrdered By: Theo Thakkar on 23-72-9765Qjmkuoam [Mass/Vol]Ferritin [Mass/volume] in Serum or Plasma Low23.9-336.2FOhioHealth Southeastern Medical CenterGlucose [Mass/volume] in Serum or PlasmaOrdered By: Theo Thakkar on 74-46-3756Vmzlbgn [Mass/Vol]Glucose [Mass/volume] in Serum or ZyktxvQlju69-860LvjwfmqfmLancaster Municipal Hospital Comment on above:ADA recommended reference rangeRandom Glucose Reference Range is dependent on time and content of last meal. Glucose of more than 200 mg/dL in a nonstressed, ambulatory subject supports the diagnosisof Diabetes Mellitus. Glucose [Mass/volume] in Urine by Test stripOrdered By: Theo Thakkar on 74-68-5015Ukzvjsc Test strip (U) [Mass/Vol]Glucose [Mass/volume] in Urine by Test stripNormalLancaster Municipal HospitalHematocrit Auto (Bld) [Volume fraction]Ordered By: Theo Thakkar on 66-93-0402Cffqkdozor (Bld) [Volume fraction] Hematocrit [Volume Fraction] of Blood by Automated count38.8-50.0L[facility]aster Municipal HospitalHemoglobin Test strip Ql (U)Ordered By: Theo Thakkar on 57-86-4826Qrgezuravs Ql (U)Hemoglobin [Presence] in Urine by Test stripHigh NegativeLancaster Municipal HospitalHemoglobin [Mass/volume] in Blood Ordered By: Theo Thakkar on 17-91-0443Coyzkfgtqt (Bld) [Mass/Vol]Hemoglobin [Mass/volume] in Blood13.0-17.0L[facility] Municipal HospitalHemogram CBC Without Diffon 83-47-6232Glpqvpspkqt distribution width (RBC) [Ratio]15.8 %High 12.0-14.8The [facility] Health Physician GroupComment on above:Performed By: #### MG, ALNG02GO, URIC, CBCNO, JAVIER, FE and TIBC, PTH, RENAL #### [facility] [address] [place] [id number] USAHematocrit (Bld) [Volume fraction]39.2 %Fmbhbv85.8-50.0The [facility], [facility]compass Health Physician GroupComment on above:Performed By: #### MG, [id number], URIC, CBCNO, JAVIER, FE and TIBC, PTH, RENAL #### [facility] [address] [id number] USAHemoglobin (Bld) [Mass/Vol]13.0 g/bWBmturl55.0-17.0The [facility] Physician GroupComment on above:Performed By: #### MG, [id number], URIC, CBCNO, JAVIER, FE and TIBC, PTH, RENAL #### [facility] [address] StreetMCH (RBC) [Entitic mass]29.9 wwPotlfk07.5-35.2The [facility] Physician GroupComment on above:Performed By: #### MG, [id number], URIC, CBCNO, JAVIER, FE and TIBC, PTH, RENAL #### [address]V (RBC) [Entitic vol]90.3 bVLbfsxa37.5-101The [facility] Physician GroupComment on above:Performed By: #### MG, [id number], URIC, CBCNO, JAVIER, FE and TIBC, PTH, RENAL #### [facility] [address] [place] [address] USAMean Corpuscular HGB Conc33.1 g/hWIcrxah47.5-35.6The [facility] Physician GroupComment on above:Performed By: #### MG, HWQG30FU, URIC, CBCNO, JAVIER, FE and TIBC, PTH, RENAL #### [place] [address] USAPlatelet mean volume (Bld) [Entitic vol]8.9 fLNormal 6.6-10.1The [facility] Physician GroupComment on above:Result Comment: PERFORMED BY: [place] [address] PATHOLOGIST SENIOR IOS DEVELOPER ROS GUNDERSON M.D.Performed By: #### MG, [id number], URIC, CBCNO, JAVIER, FE and TIBC, PTH, RENAL #### [place] [address] USAPlatelets (Bld) [#/Vol]293 10*3/vHYdsbda074-895Pzg [facility] Physician GroupComment on above:Performed By: #### MG, [id number], URIC, CBCNO, JAVIER, FE and TIBC, PTH, RENAL #### [facility] [address] [place] [address] USARBC (Bld) [#/Vol]4.34 10*6/uLNormal3.90-5.60The [facility] Physician GroupComment on above:Performed By: #### MG, [id number], URIC, CBCNO, JAVIER, FE and TIBC, PTH, RENAL #### [facility] [address] [place] [address] USAWBC (Bld) [#/Vol]6.9 10*3/uLNormal4.1-10.5The [facility] Physician GroupComment on above:Performed By: #### MG, HCPP51WO, URIC, CBCNO, JAVIER, FE and TIBC, PTH, RENAL #### [place] [address] USAHyaline casts [#/area] in Urine sediment by Automated countOrdered By: Theo Thakkar on 23-56-3274Gkxziwf casts Auto (Urine sed) [#/Area]Hyaline casts [#/area] in Urine sediment by Automated count0-8L[facility] Municipal HospitalIron [Mass/volume] in Serum or PlasmaOrdered By: Theo Thakkar on 67-99-0149Rwss [Mass/Vol]Iron [Mass/volume] in Serum or Ryzsmr83-892 [facility] HospitalIron and TIBC Profileon 08-10-2024% Iron Zppycjydzv77.9 %Lvk75-04Agh [facility] Physician GroupComment on above:Performed By: #### MG, [id number], URIC, CBCNO, JAVIER, FE and TIBC, PTH, RENAL #### [facility] [address] [place] [address] USAIron [Mass/Vol]87 ug/fHUztraa96-719Zih [facility] Physician GroupComment on above:Performed By: #### MG, [id number], URIC, CBCNO, JAVIER, FE and TIBC, PTH, RENAL #### [facility] [address] [place] [address] USATotal Iron Binding Mdfbifro076 ug/qNTwlfqq441-874Tyl [place] Physician GroupComment on above:Performed By: #### MG, PVWH16MW, URIC, CBCNO, JAVIER, FE and TIBC, PTH, RENAL #### [facility] [address] [id number] USATransferrin [Mass/Vol]313 mg/tCAfbddr015-112Rej [facility] Physician GroupComment on above:Performed By: #### MG, QIRC64WT, URIC, CBCNO, JAVIER, FE and TIBC, PTH, RENAL #### [facility] [address] [place] [address] USAKetones Test strip Ql (U)Ordered By: Theo Thakkar on 41-06-5636Gvuuxlw Ql (U)Ketones [Presence] in Urine by Test stripNegKnox Community HospitalLeukocyte clumps [Presence] in Urine by AutomatedOrdered By: Theo Thakkar on 53-10-4038Glyzmrxjz clumps Auto Ql (U) Leukocyte clumps [Presence] in Urine by AutomatedVan Wert County HospitalLeukocyte esterase [Presence] in Urine by Test stripOrdered By: Theo Thakkar on 92-40-6589Hyciiinaz esterase Test strip Ql (U)Leukocyte esterase [Presence] in Urine by Test stripOhioHealth Dublin Methodist Hospital Leukocytes [#/area] in Urine sediment by Automated countOrdered By: Theo Thakkar on 71-85-0390LXQ Auto (Urine sed) [#/Area]Leukocytes [#/area] in Urine sediment by Automated countHigh04FOhioHealth Southeastern Medical CenterLeukocytes [#/volume] corrected for nucleated erythrocytes in Blood by Automated counOrdered By: Theo Thakkar on 31-93-4374TNS corrected for nucl RBC Auto (Bld) [#/Vol]Leukocytes [#/volume] corrected for nucleated erythrocytes in Blood by Automated coun 4.1-10.5FSelect Medical OhioHealth Rehabilitation HospitalH Auto (RBC) [Entitic mass]Ordered By: Theo Thakkar on 65-58-5682OFR (RBC) [Entitic mass]MCH [Entitic mass] by Automated count27.5-35.2FSelect Medical OhioHealth Rehabilitation HospitalHC Auto (RBC) [Mass/Vol]Ordered By: Theo Thakkar on 99-41-7948WZZS (RBC) [Mass/Vol]MCHC [Mass/volume] by Automated count32.5-35.6FOhioHealth Southeastern Medical CenterMCV Auto (RBC) [Entitic vol]Ordered By: Theo Thakkar on 52-56-9875GLQ (RBC) [Entitic vol]MCV [Entitic volume] by Automated count83.5-101L[facility] HospitalMagnesiumon 63-50-6025Wbtpumtcs [Mass/Vol]2.1 mg/dLNormal1.9-2.7The [facility] Physician GroupComment on above:Performed By: #### MG, [id number], URIC, CBCNO, JAVIER, FE and TIBC, PTH, RENAL #### [facility] [address] [place] [address] USAMagnesium [Mass/volume] in Serum or PlasmaOrdered By: Theo Thakkar on 86-25-4918Jmffdktiy [Mass/Vol]Magnesium [Mass/volume] in Serum or Plasma1.9-2.7FOhioHealth Southeastern Medical CenterMucus [Presence] in Urine by AutomatedOrdered By: Theo Thakkar on 51-63-5696Gmxbk Auto Ql (U)Mucus [Presence] in Urine by AutomatedLancaster Municipal HospitalNitrite Test strip Ql (U) Ordered By: Theo Thakkar on 08-31-1132Fubfwdu Ql (U)Nitrite [Presence] in Urine by Test stripNegativeLancaster Municipal HospitalNo Panel Information Ordered By: Theo Thakkar on 45-07-4954Jzvwydxvd GFR (CKD-EPI)39.659 mL/Min [facility] HospitalPharmacy Creatinine Clearance (ChemN/[facility]field HospitalParathyrin.intact [Mass/volume] in Serum or Plasma Ordered By: Theo Thakkar on 56-55-8156Tcmaljvguo.intact [Mass/Vol] Parathyrin.intact [Mass/volume] in Serum or ZidujtAgac42-48QsldquiesLancaster Municipal HospitalParathyroid Hormone Intacton 97-16-5187Ktgmzcaergu Hormone Intact 96.1 pg/eHEzof48-18Xor [place] Physician GroupComment on above:Result Comment: PERFORMED BY: [place] [address] PATHOLOGIST SENIOR IOS DEVELOPER ROS GUNDERSON M.D.Performed By: #### MG, [id number], URIC, CBCNO, JAVIER, FE and TIBC, PTH, RENAL #### [facility] [address] [place] [address] USAPhosphate [Mass/volume] in Serum or PlasmaOrdered By: Theo Vivian on 91-42-7012Wwsvnpacp [Mass/Vol]Phosphate [Mass/volume] in Serum or Plasma2.5-4.5FOhioHealth Southeastern Medical CenterPlatelet mean volume Auto (Bld) [Entitic vol]Ordered By: Theo Vivian on 31-80-1535Krsefrzi mean volume (Bld) [Entitic vol]Platelet mean volume [Entitic volume] in Blood by Automated count 6.6-10.1FOhioHealth Southeastern Medical CenterPlatelets Auto (Bld) [#/Vol]Ordered By: Theo Vivian on 97-64-9807Qrxszsjoa (Bld) [#/Vol]Platelets [#/volume] in Blood by Automated gxruk478-250WzbauglwgLancaster Municipal HospitalPotassium [Moles/volume] in Serum or PlasmaOrdered By: Theo Vivian on 37-84-3335Qamqihbgr [Moles/Vol]Potassium [Moles/volume] in Serum or Plasma3.5-5.1FOhioHealth Southeastern Medical CenterProtein Creat Ratio Ur Randomon 64-45-7418Zqyyaygfpa, Urine (Random)114.00 mg/dLNormalThe [facility] Physician GroupComment on above:Result Comment: No reference range establishedPerformed By: #### EM CHO CUU #### [place] [address] USAProtein (U) [Mass/Vol]81 mg/dLHigh0-9[facility] Physician GroupComment on above:Performed By: #### EM CHO, CUU #### [address] [place] [address] USAUrine Protein/Creatinine Qpivd908 mg/g{Cre}High0-200The [facility] Health Physician GroupComment on above:Result Comment: PERFORMED BY: [place] [address] PATHOLOGIST SENIOR IOS DEVELOPER ROS GUNDERSON M.D.Performed By: #### BELEM COHRELESLI WEAVER #### [place] [address] USAProtein Test strip (U) [Mass/Vol]Ordered By: Theo Herrmanndir on 12-11-2794Hnqmzln (U) [Mass/Vol]Protein [Mass/volume] in Urine by Test strip HighNegativeLancaster Municipal HospitalProtein [Mass/volume] in Urine Ordered By: Theo Herrmanndir on 12-07-5089Oehcxkx (U) [Mass/Vol]Protein [Mass/volume] in UrineHigh0-9L[facility] Municipal HospitalRBC Auto (Bld) [#/Vol]Ordered By: Theo Vivian on 99-43-3033DKK (Bld) [#/Vol]Erythrocytes [#/volume] in Blood by Automated count3.90-5.60L[facility] Municipal HospitalRenal Function Panel on 71-77-9706Xrnqhyf [Mass/Vol]4.3 g/dLNormal3.5-5.7The [facility] Physician GroupComment on above:Performed By: #### MG, [id number], URIC, CBCNO, JAVIER, FE and TIBC, PTH, RENAL #### [place] [id number] USAAnion gap [Moles/Vol]9.2 mmol/LNormal6.0-15.0The [facility] Physician GroupComment on above:Performed By: #### MG, GENJ92RW, URIC, CBCNO, JAVIER, FE and TIBC, PTH, RENAL #### [place] [address] USACalcium [Mass/Vol]9.2 mg/dLNormal8.6-10.3The [facility] Physician GroupComment on above:Performed By: #### MG, [id number], URIC, CBCNO, JAVIER, FE and TIBC, PTH, RENAL #### [facility] [address] [place] [address] USAChloride [Moles/Vol]106 mmol/EOcfkvi32-669Etk [facility] Physician GroupComment on above:Performed By: #### MG, [id number], URIC, CBCNO, JAVIER, FE and TIBC, PTH, RENAL #### [facility] [address] [place] [address] USACO2 [Moles/Vol]27.7 mmol/MLydwjz07.0-31.0The [facility] Physician GroupComment on above:Performed By: #### MG, [id number], URIC, CBCNO, JAVIER, FE and TIBC, PTH, RENAL #### [place] [address] USACreatinine [Mass/Vol]1.73 mg/dLHigh0.70-1.30The [facility] Physician GroupComment on above:Performed By: #### MG, [id number], URIC, CBCNO, JAVIER, FE and TIBC, PTH, RENAL #### [place] [address] USAEstimated GFR39.659 mL/MinNormalThe [facility] Physician [facility] Promise Of VicksburgComment on above:Performed By: #### MG, [id number], URIC, CBCNO, JAVIER, FE and TIBC, PTH, RENAL #### [place] [address] USAGlucose [Mass/Vol]119 mg/lESpyf59-200Tvv [facility] Physician [facility] Promise Of VicksburgComment on above:Result Comment: Random Glucose Reference Range is dependent on time and content of last meal. Glucose of more than 200 mg/dL in a nonstressed, ambulatory subject supports the diagnosis of Diabetes Mellitus. ADA recommended reference rangePerformed By: #### MG, [id number], URIC, CBCNO, JAVIER, FE and TIBC, PTH, RENAL #### [place] [address] USAPhosphate [Mass/Vol]3.4 mg/dLNormal2.5-4.5The [facility] Physician GroupComment on above:Performed By: #### MG, [id number], URIC, CBCNO, JAVIER, FE and TIBC, PTH, RENAL #### [facility] [address] [place] [address] USAPotassium [Moles/Vol]4.9 mmol/LNormal3.5-5.1The [facility] Physician GroupComment on above:Performed By: #### MG, [id number], URIC, CBCNO, JAVIER, FE and TIBC, PTH, RENAL #### [facility] [address] [place] [address] USASodium [Moles/Vol]138 mmol/YWgklia749-416Cop [facility] Physician GroupComment on above:Performed By: #### MG, NZUC35AO, URIC, CBCNO, JAVIER, FE and TIBC, PTH, RENAL #### [facility] [address] [place] [address] USAUrea nitrogen [Mass/Vol]24 mg/dLNormal7-25The [facility] Physician GroupComment on above:Performed By: #### MG, [id number], URIC, CBCNO, JAVIER, FE and TIBC, PTH, RENAL #### [facility] [address] [place] [address] USASerum or plasma anion gap determinationOrdered By: Theo Thakkar on 84-59-2139Jdnel gap [Moles/Vol]Serum or plasma anion gap determination 6.0-15.0McC[facility]-Hyde Memorial Hospitalerum or plasma iron binding capacity measurement (mass/volume)Ordered By: Theo Thakkar on 48-93-5873Huat binding capacity [Mass/Vol]Iron binding capacity [Mass/volume] in Serum or Idinbx742-606 [facility] Hospitalerum or plasma iron saturation measurement (mass fraction)Ordered By: Theo Thakkar on 85-32-7510Vjnb saturation [Mass fraction]Iron saturation [Mass Fraction] in Serum or XtgbihVnl67-40DwinmkskyMcCullough-Hyde Memorial Hospitalodium [Moles/volume] in Serum or PlasmaOrdered By: Theo Thakkar on 92-64-9168Lbzehf [Moles/Vol]Sodium [Moles/volume] in Serum or Plasma 136-145McCull[facility]-Hyde Memorial Hospitalpecific gravity Test strip (U) [Rel density]Ordered By: Theo Thakkar on 74-66-9994Xliukfvg gravity (U) [Rel density] Specific gravity of Urine by Test strip1.001-1.030L[facility] HospitalTransferrin [Mass/volume] in Serum or PlasmaOrdered By: Theo Thakkar on 81-55-3221Dxylbelrciz [Mass/Vol]Transferrin [Mass/volume] in Serum or Plasma 203-362L[facility] Municipal HospitalUrate [Mass/volume] in Serum or Plasma Ordered By: Theo Herrmanndir on 52-62-8661Rosdz [Mass/Vol]Urate [Mass/volume] in Serum or Plasma4.4-7.6FOhioHealth Southeastern Medical CenterUrea nitrogen [Mass/volume] in Serum or PlasmaOrdered By: Theo Joycer on 05-04-1138Qwut nitrogen [Mass/Vol]Urea nitrogen [Mass/volume] in Serum or Plasma7-25[facility] HospitalUric Acidon 28-69-4424Eiqwc [Mass/Vol]6.2 mg/dLNormal 4.4-7.6The [facility] Physician GroupComment on above:Performed By: #### MG, [id number], URIC, CBCNO, JAVIER, FE and TIBC, PTH, RENAL #### [facility] [address] [place] [address] USAUrine Cultureon 23-89-7410Hlwgchwx identified Cx Nom (U)No Growth 2 Days PERFORMED BY: [place] [address] PATHOLOGIST SENIOR IOS DEVELOPER ROS GUNDERSON M.D.NormalThe [facility] Physician GroupComment on above: Performed By: #### MG, GWPL46AC, URIC, CBCNO, JAVIER, FE and TIBC, PTH, RENAL #### [facility] [address] [place], [place] [address]Urine cultureOrdered By: Theo Thakkar on 64-02-6761Gncloelf identified Cx Nom (U)Urine cultureLancaster Municipal HospitalUrine protein/creatinine ratioOrdered By: Theo Thakkar on 87-09-5102Prtachd/Creatinine (U) [Ratio]Urine protein/creatinine ratioHigh0-200[facility] HospitalUrobilinogen Test strip (U) [Mass/Vol]Ordered By: Theo Thakkar on 11-92-8670Dfpvrrksabbj (U) [Mass/Vol]Urobilinogen [Mass/volume] in Urine by Test stripNormalLancaster Municipal HospitalVitamin D 25 Hydroxy Totalon 18-72-8436Umogwfl D 25 Hydroxy Total51.2 ng/aZFvrokx55-136Kti [facility] Physician GroupComment on above:Result Comment: VITAMIN D STATUS 25(OH)VITAMIN D RANGE (ng/mL) Deficient <20 Insufficient 20 to <30 Sufficient 30 to 100 Reference: Wayne Patterson, John VILLEGAS, et al. Evaluation,treatment, and prevention of vitamin D deficiency; an Endocrine Society clinical practice guideline. JCEM. 2010; 96(7):1911-. PERFORMED BY: [place] [address] PATHOLOGIST SENIOR IOS DEVELOPER ROS GUNDERSON M.D.Performed By: #### MG, DEMW75HJ, URIC, CBCNO, JAVIER, FE and TIBC, PTH, RENAL #### [address] StreetVitamin D+Metabolites [Mass/volume] in Serum or Plasma Ordered By: Theo Thakkar on 38-55-3948Vnbsocn D+Metabolites [Mass/Vol]Vitamin D+Metabolites [Mass/volume] in Serum or Xxlgnm69-748HjuficdugLancaster Municipal HospitalComment on above:VITAMIN D STATUS 25(OH)VITAMIN D RANGE (ng/mL) Deficient <20 Insufficient 20 to <62Jqsxemfbdq20 to 100Reference: Wayne Patterson, John VILLEGAS, et al. Evaluation,treatment, and prevention of vitamin D deficiency; an Endocrine Society clinical practice guideline. JCEM. 2010; 96 (7):1911-30.pH Test strip (U)Ordered By: Theo Thakkar on 79-35-1866tS (U)pH of Urine by Test strip5.0-9.0L[facility] HospitalUrology Office/Clinic Noteon 56-56-5367Ubwykcn Office/Clinic NoteUrology Office/Clinic Note Chief Complaint gross [...] day(s), # 14 cap(s), Refills(s) 0, Pharmacy: [facility]/pharmacy #[id number], 178, cm, 08/08/24 12:38:00 EDT, Height/Length Dosing, 90.4, kg, 08/08/24 12:38:00 EDT,Weight Dosing 13271 Measure Post Void residual urine and/or bladder capacity by US- non-imaging Body Mass Index (BMI) documented 3008F Current tobacco smoker 1034F Depression Screening Negative 3352F E&M of Est. Patient Moderate 30-39 Min 70542 Influenza immunization status assessed 1030F Medication list [...] Urnls Dip Stick Auto w/o Microscopy POC 35190 Orders: tadalafil, 20 mg = 1 tab(s), Oral, As Directed, Do not exceed 20mg within 48 hours., # 30 tab(s), Refills(s) 1, Pharmacy: [facility], 178, cm, 07/07/23 9:25:00 EST, Height/Length Dosing, 92, kg, 07/07/23 9:25:00 EST, Weight Dosing Follow-up With When Contact Information [facility] Additional Instructions: Only if needed/new problems [...] Oral, q12hr nitroglycerin 0.4 mg sublingual Tab [place] 5/325 Tab, Oral, q6hr pravastatin 40 mg [...] Cigarettes, Yes, 08/08/2024 F (more content not included)...[facility] HospitalComment on above:Result Comment: Electronically Signed By: [...] prescribing physician if questions or concerns acetaminophen-hydrocodone ([place] 5/325 Tab) amlodipine (amLODIPine 10 mg Tab) [...] Barbara JOHNSTON MD Where: [facility] [address] [place], [place] [id number]- You Need to Schedule the Following Appointments Follow Up with Barbara JOHNSTON MD, URL When: Comments: 1 yr w/ PSA Where: [facility] [address], [place] [id number] Medications What How Much When Instructions Unchanged tadalafil (Cialis 20 mg Tab) 1 Tablets By Mouth As Directed Do not exceed 20mg within 48 hours. Unchanged acetaminophen-hydrocodone ([place] 5/ 325 Tab) By Mouth Every 6 [...] medicines. ??? You villegas (more content not included)...[facility] HospitalUrology Office/Clinic Noteon 84-11-1140Bblikkq Office/Clinic NoteUrology Office/Clinic Note Chief Complaint hx [...] URL [facility] [address], [place] [phone] Additional Instructions: 1 yr w/ PSA Patient [...] (urinary tract infection) UTI (more content not included)...[facility] HospitalComment on above:Result Comment: Electronically Signed By: Barbara JOHNSTON MD\.br\Date and Time Signed: 04/18/24 12:11 EST\.br\Electronically Co-Signed By: Rosario Byrne.br\Date and Time Co-Signed: 04/18/24 12:10 ESTC Urineon 83-99-5148Jxbadhcu identified Cx Nom (U)Microbiology PROCEDURE: Urine Culture [...] Locations R1: This test was performed at: [facility], [address] [place] [address], [address]- , , SrdmsbAqgttoOhio State Harding HospitalComment on above:Performed By: #### [id number] #### [facility] [address] [place] [address]Noubfin [Mass/volume] in Serum or Plasma by Bromocresol green (BCG) dye binding methoOrdered By: Theo Thakkar on 52-99-4874Utcigxq BCG dye [Mass/Vol]4.2 g/dL3.5-5.7FOhioHealth Southeastern Medical CenterBacteria [Presence] in Urine by AutomatedOrdered By: Theo Thakkar on 87-26-2896Gnbeqent Auto Ql (U)None seen [HPF]None SeenLancaster Municipal HospitalBilirubin Test strip Ql (U) Ordered By: Theo Thakkar on 94-31-6341Nxlwbhszt Ql (U)NegativeNegativeLancaster Municipal HospitalCalcium [Mass/volume] in Serum or PlasmaOrdered By: Theo Thakkar on 45-34-8581Xreiuut [Mass/Vol]9.4 mg/dL8.6-10.3FOhioHealth Southeastern Medical CenterCarbon dioxide, total [Moles/volume] in Serum or PlasmaOrdered By: Theo Thakkar on 14-95-8670QO4 [Moles/Vol]24.9 mmol/L21.0-31.0L[facility] HospitalChloride [Moles/volume] in Serum or PlasmaOrdered By: Theo Thakkar on 65-67-0129Gkegcqza [Moles/Vol]105 mmol/J53-969QljvrftnrLancaster Municipal HospitalColor Auto (U)Ordered By: Theo Thakkar on 54-60-7716Gznmx (U)YellowYellow [facility] HospitalCreatinine [Mass/volume] in Serum or Plasma Ordered By: Theo Thakkar on 73-01-3074Yhsxtleqom [Mass/Vol]1.67 mg/dLHigh 0.70-1.30L[facility] HospitalCreatinine [Mass/volume] in Urine Ordered By: Theo Thakkar on 42-62-3118Emcuaipgfu (U) [Mass/Vol]173.00 mg/dL [facility] HospitalComment on above:No reference range established Epithelial cells.squamous [#/area] in Urine sediment by Automated countOrdered By: Theo Thakkar on 53-28-4138Otqvcqjqji cells.squamous Auto (Urine sed) [#/Area] 1-2 [HPF]0-2FOhioHealth Southeastern Medical CenterErythrocyte distribution width Auto (RBC) [Ratio]Ordered By: Theo Thakkar on 35-15-3264Ltbyzogazqd distribution width (RBC) [Ratio]15.0 %High12.0-14.8[facility] Erythrocytes [#/area] in Urine sediment by Automated countOrdered By: Theo Thakkar on 14-30-8069DIJ Auto (Urine sed) [#/Area]10-19 [HPF]High04FOhioHealth Southeastern Medical CenterGlucose [Mass/volume] in Serum or PlasmaOrdered By: Theo Thakkar on 18-39-4167Aqvbxvf [Mass/Vol]95 mg/zI68-665RoachmvtoLancaster Municipal HospitalComment on above:ADA recommended reference rangeRandom Glucose Reference Range is dependent on time and content of last meal. Glucose of more than 200 mg/dL in a nonstressed, ambulatory subject supports the diagnosisof Diabetes Mellitus.Glucose [Mass/volume] in Urine by Test stripOrdered By: Theo Thakkar on 79-54-6075Heilero Test strip (U) [Mass/Vol]Normal mg/dLNormalLancaster Municipal HospitalGranular casts [#/area] in Urine by Computer assisted method Ordered By: Theo Thakkar on 16-21-8767Dfqhbqbi casts Computer assisted (U) [#/Area]5-9 [LPF]HighNone SeenLancaster Municipal HospitalHematocrit Auto (Bld) [Volume fraction]Ordered By: Theo Thakkar on 85-71-2241Ibisvxoxaq (Bld) [Volume fraction]34.7 %Low38.8-50.0L[facility] HospitalHemoglobin Test strip Ql (U)Ordered By: Theo Thakkar on 42-37-9806Rukelodaji Ql (U)1+High NegativeLancaster Municipal HospitalHemoglobin [Mass/volume] in Blood Ordered By: Theo Thakkar on 93-58-1948Orokqrczqe (Bld) [Mass/Vol]11.4 g/dLLow 13.0-17.0L[facility] HospitalHyaline casts [#/area] in Urine sediment by Automated countOrdered By: Theo Thakkar on 47-12-9412Kxhievo casts Auto (Urine sed) [#/Area]20-49 [LPF]High0-8[facility] Ketones Test strip Ql (U)Ordered By: Theo Thakkar on 21-11-3259Qptuyhn Ql (U) NegativeNegMercy Health – The Jewish HospitalLeukocyte clumps [Presence] in Urine by AutomatedOrdered By: Theo Thakkar on 98-07-4380Plsguwtuk clumps Auto Ql (U)Many [LPF]HighNone SeenLancaster Municipal HospitalLeukocyte esterase [Presence] in Urine by Test stripOrdered By: Theo Thakkar on 80-79-1652Hybqgqllz esterase Test strip Ql (U)4+HighNegMercy Health – The Jewish Hospital Leukocytes [#/area] in Urine sediment by Automated countOrdered By: Theo Thakkar on 93-74-9699IAE Auto (Urine sed) [#/Area]Innumerable [HPF]High0-4FOhioHealth Southeastern Medical CenterLeukocytes [#/volume] corrected for nucleated erythrocytes in Blood by Automated counOrdered By: Theo Thakkar on 13-42-9941RUX corrected for nucl RBC Auto (Bld) [#/Vol]6.9 10*3/uL4.1-10.5FSelect Medical OhioHealth Rehabilitation HospitalH Auto (RBC) [Entitic mass]Ordered By: Theo Thakkar on 02-25-2024 MCH (RBC) [Entitic mass]28.4 pg27.5-35.2FOhioHealth Southeastern Medical CenterMCHC Auto (RBC) [Mass/Vol]Ordered By: Theo Thakkar on 14-07-9328APYH (RBC) [Mass/Vol] 32.9 g/dL32.5-35.6FOhioHealth Southeastern Medical CenterMCV Auto (RBC) [Entitic vol] Ordered By: Theo Thakkar on 41-56-0506BMV (RBC) [Entitic vol]86.3 fL83.5-101 [facility] HospitalMagnesium [Mass/volume] in Serum or Plasma Ordered By: Theo Thakkar on 33-39-8076Ahopmnhvr [Mass/Vol]2.2 mg/dL1.9-2.7 [facility] HospitalMucus [Presence] in Urine by AutomatedOrdered By: Theo Thakkar on 44-91-3446Yisxj Auto Ql (U)Rare [LPF][facility] HospitalNitrite Test strip Ql (U)Ordered By: Theo Thakkar on 02-25-2024 Nitrite Ql (U)NegativeNegativeLancaster Municipal HospitalNo Panel InformationOrdered By: Theo Thakkar on 70-73-8806Jxctjkyde GFR (CKD-EPI)41.634 mL/MinLancaster Municipal HospitalPharmacy Creatinine Clearance (ChemN/A [facility] HospitalParathyrin.intact [Mass/volume] in Serum or PlasmaOrdered By: Theo Thakkar on 18-45-6597Snzdjzkwix.intact [Mass/Vol]97.8 pg/gFZqhg74-88AaahpkmftLancaster Municipal HospitalPhosphate [Mass/volume] in Serum or PlasmaOrdered By: Theo Thakkar on 02-63-2334Qkycxhvay [Mass/Vol]3.6 mg/dL 2.5-4.5FOhioHealth Southeastern Medical CenterPlatelet mean volume Auto (Bld) [Entitic vol]Ordered By: Theo Thakkar on 64-98-4732Hvegthzx mean volume (Bld) [Entitic vol]8.9 fL6.6-10.1FOhioHealth Southeastern Medical CenterPlatelets Auto (Bld) [#/Vol] Ordered By: Theo Thakkar on 15-34-2327Golvquygg (Bld) [#/Vol]305 10*3/pK187-863 [facility] HospitalPotassium [Moles/volume] in Serum or Plasma Ordered By: Theo Thakkar on 27-23-7977Gmeeuoeip [Moles/Vol]4.8 mmol/L3.5-5.1 [facility] HospitalProtein Test strip (U) [Mass/Vol]Ordered By: Theo Thakkar on 38-68-6027Hvqqgiz (U) [Mass/Vol]100 mg/dLHighNegMercy Health – The Jewish HospitalProtein [Mass/volume] in UrineOrdered By: Theo Thakkar on 42-89-8581Dycelze (U) [Mass/Vol]136 mg/dLHigh0-9L[facility] HospitalRBC Auto (Bld) [#/Vol]Ordered By: Theo Thakkar on 22-15-5080IAC (Bld) [#/Vol]4.02 10*6/uL3.90-5.60McC[facility]-Hyde Memorial Hospitalerum or plasma anion gap determinationOrdered By: Theo Thakkar on 75-09-1696Kksqg gap [Moles/Vol]11.9 mmol/L6.0-15.0McC[facility]-Hy[facility] Memorial Hospitalodium [Moles/volume] in Serum or PlasmaOrdered By: Theo Thakkar on 16-15-4246Eixzkc [Moles/Vol]137 mmol/D505-830TgenkawclMcCullough-Hyde Memorial Hospitalpecific gravity Test strip (U) [Rel density]Ordered By: Theo Thakkar on 70-27-1036Ekhxwmtv gravity (U) [Rel density]1.0181.001-1.030L[facility] HospitalUrate [Mass/volume] in Serum or PlasmaOrdered By: Theo Thakkar on 55-74-9142Vizdl [Mass/Vol]5.7 mg/dL4.4-7.6FOhioHealth Southeastern Medical CenterUrea nitrogen [Mass/volume] in Serum or PlasmaOrdered By: Theo Thakkar on 44-80-8824Ruhw nitrogen [Mass/Vol]23 mg/dL7-25L[facility] HospitalUrine appearance Ordered By: Theo Thakkar on 61-24-4827Yhzjwjjhmh (U)CloudyAbnormalClearFOhioHealth Southeastern Medical CenterUrine culture routineOrdered By: Theo Thakkar on 39-89-3134Vfmcecsv identified Cx Nom (U)Staphylococcus aureusAbMercy Health St. Elizabeth Boardman HospitalUrine protein/creatinine ratioOrdered By: Theo Thakkar on 44-05-1615Ghxgjiz/Creatinine (U) [Ratio]786 mg/g{Cre}High0-200L[facility] HospitalUrobilinogen Test strip (U) [Mass/Vol]Ordered By: Theo Thakkar on 12-88-7108Sbkeocahzqxq (U) [Mass/Vol]Normal mg/dLNoGrand Lake Joint Township District Memorial HospitalVitamin D+Metabolites [Mass/volume] in Serum or PlasmaOrdered By: Theo Thakkar on 39-69-5251Pvgjuls D+Metabolites [Mass/Vol]60.3 ng/iL10-796 [facility] HospitalComment on above:VITAMIN D STATUS 25(OH)VITAMIN D RANGE (ng/mL) Deficient <20 Insufficient 20 to <53Fyburqgtwx44 to 100Reference: Grecia MF,Wayne NC, John VILLEGAS, et al. Evaluation,treatment, and prevention of vitamin D deficiency; an Endocrine Society clinical practice guideline. JCEM. 2010; 96(7):1911-30.pH Test strip (U)Ordered By: Theo Thakkar on 27-32-9020pM (U)6.0 [pH]5.0-9.0[facility] HospitalLab Reportson 28-93-3184Fmm Reports [id number]#1.00TIFMercy Health West HospitalAlanine aminotransferase [Enzymatic activity/volume] in Serum or Plasma Ordered By: Shaikh Dotty on 46-03-8247JMB [Catalytic activity/Vol]13 U/L7-52 [facility] HospitalAlbumin [Mass/volume] in Serum or Plasma by Bromocresol green (BCG) dye binding methoOrdered By: Shaikh Dotty on 10-01-2023 Albumin BCG dye [Mass/Vol]4.2 g/dL3.5-5.7FOhioHealth Southeastern Medical Center Alkaline phosphatase [Enzymatic activity/volume] in Serum or PlasmaOrdered By: Shaikh Dotty on 78-47-7910NMO [Catalytic activity/Vol]58 U/T56-749RljtqbswtLancaster Municipal HospitalAspartate aminotransferase [Enzymatic activity/volume] in Serum or PlasmaOrdered By: Shaikh Dotty on 54-12-9790STM [Catalytic activity/Vol]13 U/T70-86NtbloiutsLancaster Municipal HospitalBasophils Auto (Bld) [#/Vol]Ordered By: Shaikh Dotty on 89-17-8678Dtuxblzsb (Bld) [#/Vol]0.0 10*3/uL 0.0-0.2FOhioHealth Southeastern Medical CenterBasophils/100 WBC Auto (Bld)Ordered By: Shaikh Dotty on 73-24-9140Uuskqfbdd/100 WBC (Bld)0.4 %.[facility] HospitalBilirubin.total [Mass/volume] in Serum or PlasmaOrdered By: Shaikh Dotyt on 06-74-6221Movajuvdy [Mass/Vol]0.3 mg/dL0.3-1.0[facility] HospitalCalcium [Mass/volume] in Serum or PlasmaOrdered By: Shaikh Dotty on 27-76-3020Klzphxp [Mass/Vol]9.4 mg/dL8.6-10.3FOhioHealth Southeastern Medical CenterCarbon dioxide, total [Moles/volume] in Serum or PlasmaOrdered By: Shaikh Dotty on 87-04-9737IZ5 [Moles/Vol]27.0 mmol/L21.0-31.0[facility] HospitalChloride [Moles/volume] in Serum or PlasmaOrdered By: Shaikh Dotty on 14-06-2213Vmlsrybf [Moles/Vol]108 mmol/M16-812KjfimecniLancaster Municipal HospitalCholesterol [Mass/volume] in Serum or PlasmaOrdered By: Shaikh Dotty on 88-53-8046Qhmmyapufsv [Mass/Vol]135 mg/gD075-682KjrnaetisLancaster Municipal HospitalComment on above:Chol less than 200 mg/dl low riskChol 201-239 mg/dl borderline riskChol 240 mg/dl and greater high riskCholesterol in LDL Calc [Mass/Vol]Ordered By: Shaikh Dotty on 75-72-4818Egidcpgsbhk in LDL [Mass/Vol] 81 mg/dL0-100L[facility] HospitalComment on above:LDL ATP III CLASSIFICATIONLDL less than 100 mg/dL OptimalLDL 100-129 mg/dL Near or above wjaxoeiISN481-950 mg/dL Borderline highLDL 160-189 mg/dL HighLDL greater than 189 mg/dL Very highCholesterol in VLDL Calc [Mass/Vol]Ordered By: Shaikh Dotty on 84-36-1060Zxtgnitymyd in VLDL [Mass/Vol]16 mg/dLLancaster Municipal HospitalCreatinine [Mass/volume] in Serum or PlasmaOrdered By: Shaikh Dotty on 28-91-8256Ovahasuhue [Mass/Vol]1.89 mg/dL0.70-1.30[facility] HospitalCreatinine [Mass/volume] in UrineOrdered By: Shaikh Dotty on 10-01-2023 Creatinine (U) [Mass/Vol]164.0 mg/dLLancaster Municipal HospitalComment on above:No reference range establishedEosinophils Auto (Bld) [#/Vol]Ordered By: Shaikh Dotty on 77-55-0900Dpexaojqiqy (Bld) [#/Vol]0.2 10*3/uL0.0-0.45L[facility] HospitalEosinophils/100 WBC Auto (Bld)Ordered By: Shaikh Dotty on 63-20-9732Vdrurzytvda/100 WBC (Bld)2.7 %.[facility] Erythrocyte distribution width Auto (RBC) [Ratio]Ordered By: Shaikh Dotty on 81-75-2745Zidkrvikeks distribution width (RBC) [Ratio]14.9 %12.0-14.8L[facility] HospitalGlobulin Calc (S) [Mass/Vol]Ordered By: Shaikh Dotty on 10-13-8250Tdqxxisj (S) [Mass/Vol]2.5 g/dLLancaster Municipal Hospital Glucose [Mass/volume] in Serum or PlasmaOrdered By: Shaikh Dotty on 10-01-2023 Glucose [Mass/Vol]115 mg/qO19-620WavampuppLancaster Municipal HospitalComment on above:ADA recommended reference rangeRandom Glucose Reference Range is dependent on time and content of last meal. Glucose of more than 200 mg/dL in a nonstressed, ambulatory subject supports the diagnosisof Diabetes Mellitus. Glucose mean value [Mass/volume] in Blood Estimated from glycated hemoglobin Ordered By: Shaikh Dotty on 13-17-0799Jaitdtm glucose Estimated from glycated hemoglobin (Bld) [Mass/Vol]128 mg/dLLancaster Municipal HospitalHematocrit Auto (Bld) [Volume fraction]Ordered By: Shaikh Dotty on 38-58-1653Qyitwfqlxx (Bld) [Volume fraction]37.2 %38.8-50.0[facility] Hemoglobin A1c percentageOrdered By: Shaikh Dotty on 81-58-9258LaW1t (Bld) [Mass fraction]6.1 %4.3-5.6FOhioHealth Southeastern Medical CenterComment on above: Increased risk for diabetes: 5.7 - 6.4diabetes: >6.4glycemic control for adults with diabetes: <7.0Hemoglobin [Mass/volume] in BloodOrdered By: Shaikh Dotty on 68-43-4071Wjycrviqck (Bld) [Mass/Vol]12.3 g/dL13.0-17.0[facility] HospitalLeukocytes [#/volume] corrected for nucleated erythrocytes in Blood by Automated counOrdered By: Shaikh Dotty on 71-56-3332NYX corrected for nucl RBC Auto (Bld) [#/Vol]8.3 10*3/uL4.1-10.5FOhioHealth Southeastern Medical Center Lymphocytes Auto (Bld) [#/Vol]Ordered By: Shaikh Dotty on 13-34-4807Tdgcsejxxdh (Bld) [#/Vol]1.3 10*3/uL1.00-4.8[facility] Lymphocytes/100 WBC Auto (Bld)Ordered By: Shaikh Dotty on 10-01-2023 Lymphocytes/100 WBC (Bld)16.1 %.[facility] Auto (RBC) [Entitic mass]Ordered By: Shaikh Dotty on 38-95-5936TYS (RBC) [Entitic mass] 30.5 pg27.5-35.2FOhioHealth Southeastern Medical CenterMCHC Auto (RBC) [Mass/Vol] Ordered By: Shaikh Dotty on 10-89-2638EXFP (RBC) [Mass/Vol]33.1 g/dL32.5-35.6 [facility] HospitalMCV Auto (RBC) [Entitic vol]Ordered By: Shaikh Dotty on 85-83-7408HTY (RBC) [Entitic vol]92.2 fL83.5-101L[facility] HospitalMonocytes Auto (Bld) [#/Vol]Ordered By: Shaikh Dotty on 59-71-8522Wdnvgasfz (Bld) [#/Vol]0.6 10*3/uL0.0-0.8[facility] HospitalMonocytes/100 WBC Auto (Bld)Ordered By: Shaikh Dotty on 10-01-2023 Monocytes/100 WBC (Bld)7.6 %.[facility] HospitalNeutrophils Auto (Bld) [#/Vol]Ordered By: Shaikh Dotty on 95-68-9383Vdjfrxhlcee (Bld) [#/Vol]6.1 10*3/uL1.8-7.7FOhioHealth Southeastern Medical CenterNeutrophils/100 WBC Auto (Bld) Ordered By: Shaikh Dotty on 82-86-8123Refzugycdxv/100 WBC (Bld)73.2 %.[facility] HospitalNo Panel InformationOrdered By: Shaikh Dotty on 31-77-2543Prdokpwji GFR (CKD-EPI)35.887 mL/MinLancaster Municipal Hospital Pharmacy Creatinine Clearance (ChemN/AFOhioHealth Southeastern Medical CenterNucleated erythrocytes [Presence] in Blood by Automated countOrdered By: Shaikh Dotty on 47-92-6331Djmlrzexp RBC Auto Ql (Bld)0.1 /100{WBC}0-0.5FOhioHealth Southeastern Medical CenterPlatelet mean volume Auto (Bld) [Entitic vol]Ordered By: Shaikh Dotty on 98-69-8204Kremiqen mean volume (Bld) [Entitic vol]8.7 fL6.6-10.1 [facility] HospitalPlatelets Auto (Bld) [#/Vol]Ordered By: Shaikh Dotty on 29-67-7342Emrlkxtfv (Bld) [#/Vol]270 10*3/kQ265-123SrtfckotsLancaster Municipal HospitalPotassium [Moles/volume] in Serum or PlasmaOrdered By: Shaikh Dotty on 79-25-9281Udcjcxzan [Moles/Vol]4.9 mmol/L3.5-5.1FOhioHealth Southeastern Medical CenterProstate specific Ag [Mass/volume] in Serum or PlasmaOrdered By: Barbara Johnston on 19-48-3625Thqqfdaj specific Ag [Mass/Vol]0.420 ng/mL 0.000-4.000L[facility] HospitalComment on above:Serial tumor marker results determined by assays using different manufacturers or methods may not be comparable.[facility], [facility] costume rental clerk and method:[employer] DXI, CHEMILUMINESCENT IMMUNOASSAY.Protein [Mass/volume] in Serum or PlasmaOrdered By: Shaikh Dotty on 92-48-3745Edlobfp [Mass/Vol]6.7 g/dL6.4-8.9L[facility] HospitalProtein [Mass/volume] in UrineOrdered By: Shaikh Dotty on 80-44-2456Usrgubf (U) [Mass/Vol]124 mg/dL0-9L[facility] HospitalRBC Auto (Bld) [#/Vol]Ordered By: Shaikh Dotty on 55-60-2464ZVK (Bld) [#/Vol]4.04 10*6/uL3.90-5.60McC[facility] Hospitalerum or plasma albumin/globulin mass ratioOrdered By: Shaikh Dotty on 10-01-2023 Albumin/Globulin [Mass ratio]1.7 {ratio}McC[facility] Memorial Hospitalerum or plasma anion gap determinationOrdered By: Shaikh Dotty on 15-88-5813Vtkph gap [Moles/Vol]9.9 mmol/L6.0-15.0McC[facility]-Hyde Memorial Hospitalerum or plasma high density lipoprotein (HDL) cholesterol measurementOrdered By: Shaikh Dotty on 13-53-1624Wkpmfrvdjtc in HDL [Mass/Vol]38 mg/iB37-74WoeznjbevLancaster Municipal HospitalComment on above:HDL CHOL ATP-III CLASSIFICATION Cardiovascular RiskHDL > or equal to 60 mg/dL LOWHDL < 40 mg/dL HIGHSerum or plasma total cholesterol/high density lipoprotein (HDL) cholesterol mass ratOrdered By: Shaikh Dotty on 87-55-4342Dbgacqoukbp.total/Cholesterol in HDL [Mass ratio]3.6 {ratio}<5.0McC[facility]-Hyde Memorial Hospitalodium [Moles/volume] in Serum or PlasmaOrdered By: Shaikh Dotty on 71-77-5040Vrqdzx [Moles/Vol]140 mmol/U459-301 [facility] HospitalThyrotropin [Units/volume] in Serum or Plasma Ordered By: Shaikh Dotty on 70-54-7879AJI Qn1.61 m[IU]/L0.45-5.33L[facility] HospitalTriglyceride [Mass/volume] in Serum or PlasmaOrdered By: Shaikh Dotty on 43-25-0771Caiinesdmemu [Mass/Vol]80 mg/dL0-149L[facility] HospitalComment on above:TRIG ATP III CLASSIFICATIONTRIG less than 150 mg/dL NormalTRIG 150-199 mg/dL Borderline highTRIG 200-500 mg/dL High TRIG greater than 500 mg/dL Very highStandard traceable to the Center for Disease Conrtrol and Prevention (CDC) test method.Urea nitrogen [Mass/volume] in Serum or PlasmaOrdered By: Shaikh Dotty on 11-59-6686Ywhn nitrogen [Mass/Vol] 33 mg/dL7-25[facility] HospitalWBC Auto (Bld) [#/Vol]Ordered By: Shaikh Dotty on 42-11-9164NPV (Bld) [#/Vol]8.3 10*3/uL4.1-10.5FOhioHealth Southeastern Medical CenterAmbulatory Visit Summaryon 61-64-1199Inetjykscl Visit Summary YESENIA BROUSSARD :1945 Visit Date:09/18/2023 Ambulatory Visit Instructions Your Diagnosis Nocturia Erectile dysfunction BPH with urinary obstruction History of prostate cancer History of UTI Your Care Team Attending Physician - Barbara JOHNSTON MD Primary Care Physician - DOTTY MAK, This Is Your Medications List tadalafil (Cialis 20 mg Tab) Contact prescribing physician if questions or concerns acetaminophen-hydrocodone ([place] 5/325 Tab) amlodipine (amLODIPine 5 mg Tab) [...] with PRESTON MAK, GLO Ortega When: Where: [address] [place] [address]- Medications What How Much When Instructions Unchanged tadalafil (Cialis 20 mg Tab) 1 Tablets By Mouth As Directed Do not exceed 20mg within 48 hours. Unchanged acetaminophen-hydrocodone ([place] 5/ 325 Tab) By Mouth Every 6 [...] Keep a bladder diary (more content not included)...[facility] HospitalPatient Educationon 31-73-9223Vxcedfo EducationUrology Urinary Frequency, Adult Urinary frequency means [...] keep your urine pale yellow. ? Take pycx-afv-iewcmyk or prescription medicines. ? Eat foods that are high in fiber, such as beans, whole grains, and fresh fruits and vegetables. ? Limit foods that are high in fat and processed sugars, such as fried or sweet foods. General instructions ? Take kcva-pzg-jxxelqr and prescription medicines only as told by [...] muscles that help control urination. ? Take vxbi-ysg-qgudupe and prescription medicines only as told by your health care provider. ? Contact a health care provider if your symptoms do not improve or get worse. This information is not intended to replace advice given to you by your health care provider. Make sure you discuss any questions you have with your health care provider. Document Revised: 12/21/2020 Document Reviewed: 12/21/2020 [employer] Patient Education ? 2022 [employer].[facility] Urology Office/Clinic Noteon 03-45-0363Iozrrko Office/Clinic NoteChief Complaint 3m to med change [...] Information PRESTON MAK, Barbara Warner, [address] [id number]- Additional Instructions: 6 mos w/ PSA Patient Education Urinary Frequency, Adult I, Tabitha Saenz, personally scribed for Dr. Johnston on 09/18/2023 11:55:58. . Documentation recorded by the scribTabitha boswell, accurately reflects the services(s) I performed and decisions made by me. Authenticated by Dr. Johnston on 09/18/2023 11:59:13. Problem List/Past Medical History Ongoing Anxiety BPH with (more content not included)...[facility] HospitalComment on above:Result Comment: Electronically Signed By: Barbara JOHNSTON MD\.br\Date and Time Signed: 09/18/23 11:59 EDT\.br\Electronically Co-Signed By: Tabitha Saenzbr\Date and Time Co-Signed: 09/17/2410:56 EDTECG 12 Leadon 89-38-5544Ksdfhy sinus rhythm, right bundle branch block and left anterior fascicular block consistent with bifascicular block, abnormal ECGCPACSSelect Medical Specialty Hospital - [facility] Work Phone: c Urineon 67-50-0635Zvvczvbd identified Cx Nom (U) Microbiology PROCEDURE: Urine [...] Locations R1: This test was performed at: [facility], [address] [place] [address], [facility] , , SmejmsNmgmiqOhio State Harding HospitalComment on above:Performed By: #### [id number] ####[facility] [address] [place], [place] [address]Consultation Noteon 56-27-0058Iwdqxoaaymbx Note [id number]#1.00TIFMercy Health West HospitalLab Reportson 46-50-8511Dzg Reports [id number]#1.00[facility] Medical CenterPatient Educationon 10-27-3627Udxkbfg EducationUrology Urinary Frequency, Adult Urinary frequency means [...] keep your urine pale yellow. ? Take jjnn-hls-biixhfg or prescription medicines. ? Eat foods that are high in fiber, such as beans, whole grains, and fresh fruits and vegetables. ? Limit foods that are high in fat and processed sugars, such as fried or sweet foods. General instructions ? Take qobh-ypw-vqhooil and prescription medicines only as told by [...] muscles that help control urination. ? Take fwxi-xrc-wlwmvir and prescription medicines only as told by your health care provider. ? Contact a health care provider if your symptoms do not improve or get worse. This information is not intended to replace advice given to you by your health care provider. Make sure you discuss any questions you have with your health care provider. Document Revised: 12/21/2020 Document Reviewed: 12/21/2020 [employer] Patient Education ? 2022 [employer].[facility] Urology Office/Clinic Noteon 66-54-1074Xbyntyq Office/Clinic NoteChief Complaint 2 month F/U HPI [...] Contact Information PRESTON MAK, Barbara Warner, [address] [place] [address]- Additional Instructions: 3 mos Patient Education Urinary Frequency, Adult Documentation recorded by the scribelbert Saenz accurately reflects the services(s) I performed and decisions made (more content not included)...Normal [facility] Health InstituteComment on above:Result Comment: Electronically Signed By: CLAIRE JAMES PA-C.br\Date and Time Signed: 07/07/2409:08 EST\.br\Electronically Co-Signed By: Tabitha Saenz.da\Date and Time Co- Signed: 02/06/24 09:50 ESTNUCLEAR STRESS TEST EXERCISE (CARD)on 06-19-2023 Interpreted By: Inge Dickerson and Beal Gina STUDY: MYOCARDIAL PERFUSION STRESS TEST WITH LEXISCAN Performing facility: [facility], [address] [place] [address], [address], [place] [address] [facility] Provider: Sylvester Grayson DO, [facility] PCP: Dr. Agus STORM Supervising provider: [...] 1990s RCA. COMPARISON: No comparison. ACCESSION NUMBER(S): [id number] ORDERING CLINICIAN: CHAIM GRAYSON TECHNIQUE: ONE DAY [...] Inge Dickerson 06/19/2023 11:20 AM Dictation workstation: [id number], Radiologist, - 06/19/2023 Interpreted By: Inge Dickerson, Aracely Alicea STUDY: MYOCARDIAL PERFUSION STRESS TEST WITH LEXISCAN Performing facility: [facility], [address] [place] [address], [address], [place], [place] [address] Provider: Sylvester Grayson DO, [facility] PCP: Dr. Agus STORM Supervising provider: [...] 1990s RCA. COMPARISON: No comparison. ACCESSION NUMBER(S): [id number] ORDERING CLINICIAN: CHAIM GRAYSON TECHNIQUE: ONE DAY [...] Inge Dickerson 06/19/2023 11:20 AM Dictation workstation: [id number] [facility] HospitalNUCLEAR STRESS TEST EXERCISE (CARD)Ordered By: Radiologist Radiology on 29-12-7911QIYW [employer] Work Phone: NUCLEAR STRESS TESTon 66-78-3586VOVTIQP STRESS TEST Interpreted By: Inge Dickerson and Beal Gina STUDY: MYOCARDIAL PERFUSION STRESS TEST WITH LEXISCAN Performing facility: [facility], [address] [place] [address], [address], [address] Provider: Sylvester Grayson DO, [facility] PCP: Dr. Agus STORM Supervising provider: [...] 1990s RCA. COMPARISON: No comparison. ACCESSION NUMBER(S): [id number] ORDERING CLINICIAN: CHAIM GRAYSON TECHNIQUE: ONE DAY [...] Inge Dickerson 06/19/2023 11:20 AM Dictation workstation: [id number]d Clinic NUCLEAR STRESS TEST EXERCISE (CARD)on 82-16-3400Dpcgjzqcf Study observation (narrative)[facility] 40-35-8636QZQIZfifdh Visit (SPSLU) YESENIA BROUSSARD ([id number]) 1945 M Date Time Provider Department 06/12/23 11:00 AM [facility] During your visit today, we recorded the [...] heat Medications: See medication reconciliation list in [facility] MEDICATIONS: Hydrocodone, Gabapentin 2017 back [...] male who recently moved from [place] to [place]. He reports longstanding history of back and [...] law suit/legal clai (more content not included)...[facility] [address] 98-58-0858Tpoue rhythm, right bundle branch block, left axis deviation, abnormal ECGCPACSSelect Medical Specialty Hospital - [place] Work Phone: Lab Reportson 30-91-3497Otf Reports [id number]#1.00TIFMercy Health West HospitalLab Reportson 75-54-4186Ztn Reports [id number]#1.00TIFMercy Health West HospitalPhysician Orderon 27-65-9739Vjjjoxdyu Order [id number]#1.00TIFFNoAna [facility] Urineon 70-01-4799Ptgyymhw identified Cx Nom (U)Microbiology PROCEDURE: Urine Culture [R1] SOURCE: U Random BODY SITE: COLLECTED DATE/TIME: 04/21/2023 09:29 EST RECEIVED DATE/TIME: 04/21/2023 17:59 EST START DATE/TIME: 04/21/2023 18:00 EST FREE TEXT SOURCE: BRITNI ENCINSA, CLAIRE JAMES PA-C, CLAIRE Boswell FINAL REPORTS [...] Locations R1: This test was performed at: [facility], [address] [place] [address], [address] , , JhkulrWsvgnuOhio State Harding HospitalComment on above:Performed By: #### [id number] ####[facility] [address] [place], [place] [address]Byvjfblkv 56-30-2003Qurzbfa [id number]#1.00[facility] Brentwood [id number]#1.00[facility] Medical CenterAmbulatory Visit Summaryon 06-84-5539Fvnapgsnmn Visit Summary YESENIA BROUSSARD :1945 Visit Date:04/21/2023 Ambulatory Visit Instructions Your Diagnosis Nocturia UTI symptoms Erectile dysfunction Prostate cancer BPH with urinary obstruction Tests Performed Urnls Dip Stick Auto w/o Microscopy POC [id number] Your Care Team Attending Physician - CLAIRE JAMES PA-C Primary Care Physician - DOTTY MAK, CARREON This Is Your Medications List oxybutynin (oxybutynin 5 mg Tab) Contact prescribing physician if questions or concerns acetaminophen-hydrocodone ([place] 5/325 Tab) amlodipine (amLODIPine 5 mg Tab) [...] CLAIRE JAMES PA-C Where: [facility] Educationon 27-14-7619Coqmrus EducationUrology Erectile Dysfunction Erectile dysfunction (ED) is [...] these instructions at home: Medicines ? Take mjwz-avw-odpozoo and prescription medicines only as told by [...] These products include cig (more content not included)...[facility] Urology Office/Clinic Noteon 12-88-3066Ncgrowp Office/Clinic NoteChief Complaint 2 month F/U178 HPI [...] 0.05mg qhs. Rx sent to [facility] in [place]. -Check electrolytes in 1 wk after starting [...] 50mg prn. Rx sent to [facility] in [place]. 4. Prostate cancer (C61: Malignant neoplasm of [...] with urinary obstruction (N4 (more content not included)...[facility] HospitalComment on above:Result Comment: Electronically Signed By: CLAIRE JAMES PA-C\.br\Date and Time Signed: 04/21/2309:33 EST\.br\Electronically Co-Signed By: Rosario Byrne\.br\Date and Time Co-Signed: 04/21/23 09:14 ESTCreatinine [Mass/volume] in Serum or PlasmaOrdered By: Jose Martin Mchugh on 73-94-2513Woxpprnpjo [Mass/Vol]2.03 mg/dL0.70-1.30[facility] HospitalNo Panel InformationOrdered By: Jose Martin Mchugh on 73-78-5179Vfhgohddm GFR (CKD-EPI)33.144 mL/MinLancaster Municipal Hospital Pharmacy Creatinine Clearance (Chem34.29[facility] HospitalUrea nitrogen [Mass/volume] in Serum or PlasmaOrdered By: Jose Martin Mchugh on 30-98-3407Zzfu nitrogen [Mass/Vol]35 mg/dL7-[facility] Albumin [Mass/volume] in Serum or Plasma by Bromocresol green (BCG) dye binding methoOrdered By: Theo Thakkar on 92-96-9898Hpwedsm BCG dye [Mass/Vol]4.1 g/dL 3.5-5.7FOhioHealth Southeastern Medical CenterAutomated erythrocytes count in urine sediment (number/area)Ordered By: Theo Thakkar on 82-03-0589CTP Auto (Urine sed) [#/Area]5-9 [HPF]0-4FOhioHealth Southeastern Medical CenterAutomated leukocytes count in urine sediment (number/area)Ordered By: Theo Thakkar on 03-81-1345SCR Auto (Urine sed) [#/Area]Innumerable [HPF]0-4FOhioHealth Southeastern Medical Center Bilirubin Test strip Ql (U)Ordered By: Theo Thakkar on 14-20-1667Khfsvslxg Ql (U) NegativeNegativeLancaster Municipal HospitalCalcium [Mass/volume] in Serum or PlasmaOrdered By: Theo Thakkar on 50-10-9499Rbzjnbp [Mass/Vol]9.3 mg/dL 8.6-10.3FOhioHealth Southeastern Medical CenterCarbon dioxide, total [Moles/volume] in Serum or PlasmaOrdered By: Theo Thakkar on 80-93-3884PZ8 [Moles/Vol]26.4 mmol/L 21.0-31.0[facility] HospitalChloride [Moles/volume] in Serum or PlasmaOrdered By: Theo Thakkar on 72-26-1328Ftdzrrgq [Moles/Vol]104 mmol/L98-107 [facility] HospitalColor Auto (U)Ordered By: Theo Thakkar on 21-92-9212Kzeat (U)YellowYellowLancaster Municipal HospitalCreatinine [Mass/volume] in Serum or PlasmaOrdered By: Theo Thakkar on 27-43-3207Audarqxgwq [Mass/Vol]1.83 mg/dL0.70-1.30[facility] HospitalCreatinine [Mass/volume] in UrineOrdered By: Theo Thakkar on 15-05-5359Narzzrbhol (U) [Mass/Vol]162.0 mg/dL14.0-26.0[facility] HospitalGlucose [Mass/volume] in Serum or PlasmaOrdered By: Theo Thakkar on 09-88-6781Ybrxupm [Mass/Vol]126 mg/aS89-397IgmlkvgpuLancaster Municipal HospitalComment on above:ADA recommended reference rangeRandom Glucose Reference Range is dependent on time and content of last meal. Glucose of more than 200 mg/dL in a nonstressed, ambulatory subject supports the diagnosisof Diabetes Mellitus.Ketones Auto test strip (U) [Mass/Vol]Ordered By: Theo Thakkar on 33-22-7085Niknuaq (U) [Mass/Vol] NegativeNegativeLancaster Municipal HospitalLaboratory - UrinalysisOrdered By: Theo Thakkar on 12-17-7133Ovtbdjt casts LM Ql (Urine sed)None seen [LPF]0-8 [facility] HospitalMagnesium [Mass/volume] in Serum or Plasma Ordered By: Theo Thakkar on 09-52-8061Mevgecljq [Mass/Vol]2.2 mg/dL1.9-2.7 [facility] HospitalNitrite Test strip Ql (U)Ordered By: Theo Thakkar on 30-20-9518Jsiqepm Ql (U)NegativeNegativeLancaster Municipal HospitalNo Panel InformationOrdered By: Theo Thakkar on 92-74-5657Lcdfskkea GFR (CKD-EPI)37.537 mL/MinLancaster Municipal HospitalPharmacy Creatinine Clearance (ChemN/AFOhioHealth Southeastern Medical CenterParathyrin.intact [Mass/volume] in Serum or PlasmaOrdered By: Theo Thakkar on 03-09-2023 Parathyrin.intact [Mass/Vol]128.0 pg/nE74-80JkivwincrL[facility] Hospital Phosphate [Mass/volume] in Serum or PlasmaOrdered By: Theo Thakkar on 03-09-2023 Phosphate [Mass/Vol]4.1 mg/dL3.7-7.2FOhioHealth Southeastern Medical CenterPotassium [Moles/volume] in Serum or PlasmaOrdered By: Theo Thakkar on 13-72-9957Zwvobpwpl [Moles/Vol]4.7 mmol/L3.5-5.1FOhioHealth Southeastern Medical CenterProtein Auto test strip (U) [Mass/Vol]Ordered By: Theo Thakkar on 24-27-3402Lakgqod (U) [Mass/Vol] 100 mg/dLNegativeLancaster Municipal HospitalProtein [Mass/volume] in Urine Ordered By: Theo Thakkar on 72-02-8099Xdiorxn (U) [Mass/Vol]104 mg/dL0-9McC[facility] Hospitalerum or plasma anion gap determinationOrdered By: Theo Thakkar on 15-03-9794Ycubu gap [Moles/Vol]10.3 mmol/L6.0-15.0McC[facility] Hospitalodium [Moles/volume] in Serum or PlasmaOrdered By: Theo Thakkar on 87-27-7247Dgfnnj [Moles/Vol]136 mmol/A714-009MljtdtrezLancaster [facility] Hospital Specific gravity Auto test strip (U) [Rel density]Ordered By: Theo Thakkar on 16-28-0738Cfrfhhkt gravity (U) [Rel density]1.0181.001-1.030McC[facility] Hospitalquamous epithelial cells detection in urine sediment by light microscopyOrdered By: Theo Thakkar on 90-30-2188Avschzfrmb cells.squamous LM Ql (Urine sed)None seen [HPF]0-2FOhioHealth Southeastern Medical CenterUrate [Mass/volume] in Serum or PlasmaOrdered By: Thoe Thakkar on 09-64-1299Wtiyf [Mass/Vol]7.1 mg/dL4.4-7.6FOhioHealth Southeastern Medical CenterUrea nitrogen [Mass/volume] in Serum or PlasmaOrdered By: Theo Thakkar on 27-50-7063Kunx nitrogen [Mass/Vol]30 mg/dL7-25[facility] HospitalUrine bacteria detection by automated methodOrdered By: Theo Thakkar on 44-93-5856Jkubhbzj Auto Ql (U)None seenNone SeenLancaster Municipal HospitalUrine clarity by refractometry automatedOrdered By: Theo Thakkar on 19-82-5249Tfvnxrg Refractometry automated (U)CloudyCleRegional Medical CenterUrine culture routineOrdered By: Theo Thakkar on 62-51-9918Wdgmcepo identified Cx Nom (U)Staphylococcus aureusLancaster Municipal HospitalBacteria identified Cx Nom (U)Staphylococcus aureusLancaster Municipal HospitalUrine glucose measurement by automated test strip (mass/volume)Ordered By: Theo Thakkar on 01-62-1736Dxtjhdk Auto test strip (U) [Mass/Vol]Normal mg/dLNormalLancaster Municipal HospitalUrine hemoglobin detection by automated test stripOrdered By: Theo Thakkar on 56-88-0315Bkrvnwwjoc Auto test strip Ql (U)1+Negative [facility] HospitalUrine leukocyte esterase detection by automated test stripOrdered By: Theo Thakkar on 81-93-5111Hpxtbycon esterase Auto test strip Ql (U)4+NegativeLancaster Municipal HospitalUrine protein/creatinine ratioOrdered By: Theo Thakkar on 86-74-2690Dbfjuny/Creatinine (U) [Ratio]642 mg/g{Cre}0-200[facility] HospitalUrobilinogen Auto test strip (U) [Mass/Vol]Ordered By: Theo Thakkar on 02-58-4972Cfhqhmgabxbb (U) [Mass/Vol]Normal mg/dLNormalLancaster Municipal HospitalVitamin D+Metabolites [Mass/volume] in Serum or PlasmaOrdered By: Theo Thakkar on 11-24-4973Tdhrzxu D+Metabolites [Mass/Vol]18.9 ng/hK26-673JrtridklwLancaster Municipal HospitalComment on above: VITAMIN D STATUS 25(OH)VITAMIN D RANGE (ng/mL) Deficient <20 Insufficient 20 to <55Fzjjyypoiq49 to 100Reference: Grecia MF,Wayne PALMER, John VILLEGAS, et al. Evaluation,treatment, and prevention of vitamin D deficiency; an Endocrine Society clinical practice guideline. JCEM. 2010; 96(7):1911-30.pH Auto test strip (U)Ordered By: Theo Thakkar on 67-22-0895rH (U)5.5 [pH]5.0-9.0[facility] HospitalAlanine aminotransferase [Enzymatic activity/volume] in Serum or PlasmaOrdered By: Shaikh Dotty on 44-86-2677FGB [Catalytic activity/Vol]12 U/L7-52[facility] HospitalAlbumin [Mass/volume] in Serum or Plasma by Bromocresol green (BCG) dye binding methoOrdered By: Shaikh Dotty on 51-03-9373Cwkccov BCG dye [Mass/Vol]4.2 g/dL3.5-5.7FOhioHealth Southeastern Medical CenterAlkaline phosphatase [Enzymatic activity/volume] in Serum or PlasmaOrdered By: Shaikh Dotty on 32-84-3955UEQ [Catalytic activity/Vol]66 U/L 34-104[facility] HospitalAspartate aminotransferase [Enzymatic activity/volume] in Serum or PlasmaOrdered By: Shaikh Dotty on 52-41-0280GPY [Catalytic activity/Vol]13 U/W48-94NkfmwrjtgLancaster Municipal HospitalBasophils Auto (Bld) [#/Vol]Ordered By: Shaikh Dotty on 63-12-1105Wvfqtrlfj (Bld) [#/Vol] 0.0 10*3/uL0.0-0.2FOhioHealth Southeastern Medical CenterBasophils/100 WBC Auto (Bld) Ordered By: Shaikh Dotty on 05-66-2237Dockszvpe/100 WBC (Bld)0.5 %.[facility] HospitalBilirubin.total [Mass/volume] in Serum or PlasmaOrdered By: Shaikh Dotty on 87-25-3887Wwgpzcksn [Mass/Vol]0.3 mg/dL0.3-1.0[facility] HospitalCalcium [Mass/volume] in Serum or PlasmaOrdered By: Shaikh Dotty on 54-90-4979Ygbyjqf [Mass/Vol]9.2 mg/dL8.6-10.3FOhioHealth Southeastern Medical CenterCarbon dioxide, total [Moles/volume] in Serum or PlasmaOrdered By: Shaikh Dotty on 58-96-1507KD5 [Moles/Vol]26.1 mmol/L21.0-31.0[facility] HospitalChloride [Moles/volume] in Serum or PlasmaOrdered By: Shaikh Dotty on 17-98-3944Eaypfvvp [Moles/Vol]109 mmol/A78-041OhjfszfsoLancaster Municipal HospitalCholesterol [Mass/volume] in Serum or PlasmaOrdered By: Shaikh Dotty on 62-64-2407Tysxwmpinep [Mass/Vol]178 mg/qC844-228IzjomwbheLancaster Municipal HospitalComment on above:Chol less than 200 mg/dl low riskChol 201-239 mg/dl borderline riskChol 240 mg/dl and greater high riskCholesterol in LDL Calc [Mass/Vol]Ordered By: Shaikh Dotty on 43-70-2063Hktyzckqwif in LDL [Mass/Vol]115 mg/dL0-100[facility] HospitalComment on above:LDL ATP III CLASSIFICATIONLDL less than 100 mg/dL OptimalLDL 100-129 mg/dL Near or above rbszbosMQQ325-927 mg/dL Borderline highLDL 160-189 mg/dL HighLDL greater than 189 mg/dL Very highCholesterol in VLDL Calc [Mass/Vol]Ordered By: Shaikh Dotty on 18-85-6799Jrkveerxjev in VLDL [Mass/Vol]32 mg/dLLancaster Municipal HospitalCreatinine [Mass/volume] in Serum or PlasmaOrdered By: Shaikh Dotty on 45-08-7986Swzvvtxnrj [Mass/Vol]1.80 mg/dL0.70-1.30[facility] HospitalEosinophils Auto (Bld) [#/Vol]Ordered By: Shaikh Dotty on 72-51-6456Eqhzdymfmfs (Bld) [#/Vol]0.2 10*3/uL0.0-0.45[facility] HospitalEosinophils/100 WBC Auto (Bld)Ordered By: Shaikh Dotty on 01-09-2023 Eosinophils/100 WBC (Bld)3.9 %.[facility] HospitalErythrocyte distribution width Auto (RBC) [Ratio]Ordered By: Shaikh Dotty on 01-09-2023 Erythrocyte distribution width (RBC) [Ratio]14.6 %12.0-14.8[facility] HospitalGlobulin Calc (S) [Mass/Vol]Ordered By: Shaikh Dotty on 66-59-1991Extjmcvv (S) [Mass/Vol]2.7 g/dLLancaster Municipal Hospital Glucose [Mass/volume] in Serum or PlasmaOrdered By: Shaikh Dotty on 01-09-2023 Glucose [Mass/Vol]114 mg/uJ89-837NrpwgcidjLancaster Municipal HospitalComment on above:ADA recommended reference rangeRandom Glucose Reference Range is dependent on time and content of last meal. Glucose of more than 200 mg/dL in a nonstressed, ambulatory subject supports the diagnosisof Diabetes Mellitus. Hematocrit Auto (Bld) [Volume fraction]Ordered By: Shaikh Dotty on 01-09-2023 Hematocrit (Bld) [Volume fraction]40.3 %38.8-50.0[facility] HospitalHemoglobin [Mass/volume] in BloodOrdered By: Shaikh Dotty on 01-09-2023 Hemoglobin (Bld) [Mass/Vol]13.3 g/dL13.0-17.0[facility] Leukocytes [#/volume] corrected for nucleated erythrocytes in Blood by Automated counOrdered By: Shaikh Dotty on 69-22-2896MME corrected for nucl RBC Auto (Bld) [#/Vol]5.6 10*3/uL4.1-10.5FOhioHealth Southeastern Medical CenterLymphocytes Auto (Bld) [#/Vol]Ordered By: Shaikh Dotty on 43-27-3364Eryzygdpjwa (Bld) [#/Vol]1.1 10*3/uL1.00-4.8[facility] HospitalLymphocytes/100 WBC Auto (Bld)Ordered By: Shaikh Dotty on 14-42-2716Puunumqlzuk/100 WBC (Bld)19.3 % .[facility] HospitalMCH Auto (RBC) [Entitic mass]Ordered By: Shaikh Dotty on 65-42-9899KEZ (RBC) [Entitic mass]30.0 pg27.5-35.2FOhioHealth Southeastern Medical CenterMCHC Auto (RBC) [Mass/Vol]Ordered By: Shaikh Dotty on 98-36-6766GCPB (RBC) [Mass/Vol]32.9 g/dL32.5-35.6FOhioHealth Southeastern Medical CenterMCV Auto (RBC) [Entitic vol]Ordered By: Shaikh Dotty on 20-37-9410ILL (RBC) [Entitic vol]91.2 fL83.5-101[facility] HospitalMonocytes Auto (Bld) [#/Vol]Ordered By: Shaikh Dotty on 70-40-5681Sarmatvia (Bld) [#/Vol] 0.5 10*3/uL0.0-0.8[facility] HospitalMonocytes/100 WBC Auto (Bld) Ordered By: Shaikh Dotty on 44-39-3976Zqcbjagir/100 WBC (Bld)8.7 %.[facility] HospitalNeutrophils Auto (Bld) [#/Vol]Ordered By: Shaikh Dotty on 63-25-4987Iwbmetiaeoz (Bld) [#/Vol]3.8 10*3/uL1.8-7.7FOhioHealth Southeastern Medical CenterNeutrophils/100 WBC Auto (Bld)Ordered By: Shaikh Dotty on 64-90-3486Bkuwosdlijr/100 WBC (Bld)67.6 %.[facility] HospitalNo Panel InformationOrdered By: Shaikh Dotty on 80-00-0654Sevlsijsm GFR (CKD-EPI) 38.289 mL/MinLancaster Municipal HospitalPharmacy Creatinine Clearance (ChemN/[facility] HospitalNucleated erythrocytes [Presence] in Blood by Automated countOrdered By: Shaikh Dotty on 21-98-1725Gorlkvnbk RBC Auto Ql (Bld)0.1 /100{WBC}0-0.5FOhioHealth Southeastern Medical CenterPlatelet mean volume Auto (Bld) [Entitic vol]Ordered By: Shaikh Dotty on 04-50-7736Zzhczhqe mean volume (Bld) [Entitic vol]9.7 fL6.6-10.1FOhioHealth Southeastern Medical Center Platelets Auto (Bld) [#/Vol]Ordered By: Shaikh Dotty on 78-20-5916Cmpbevfxp (Bld) [#/Vol]173 10*3/jE933-939OzpxcxxcdLancaster Municipal HospitalPotassium [Moles/volume] in Serum or PlasmaOrdered By: Shaikh Dotty on 01-09-2023 Potassium [Moles/Vol]4.9 mmol/L3.5-5.1FOhioHealth Southeastern Medical CenterProtein [Mass/volume] in Serum or PlasmaOrdered By: Shaikh Dotty on 93-01-0740Rjniuao [Mass/Vol]6.9 g/dL6.4-8.9[facility] HospitalRBC Auto (Bld) [#/Vol] Ordered By: Shaikh Dotty on 83-90-0551XFO (Bld) [#/Vol]4.42 10*6/uL3.90-5.60 [facility] Hospitalerum or plasma albumin/globulin mass ratio Ordered By: Shaikh Dotty on 20-53-5453Vrwvhbr/Globulin [Mass ratio]1.6 {ratio} [facility] Hospitalerum or plasma anion gap determinationOrdered By: Shaikh Dotty on 23-14-0568Pjkjf gap [Moles/Vol]9.8 mmol/L6.0-15.0[facility] Hospitalerum or plasma high density lipoprotein (HDL) cholesterol measurementOrdered By: Shaikh Dotty on 90-12-5997Cybiifujosv in HDL [Mass/Vol]31 mg/uQ14-94VgdsbidybLancaster Municipal HospitalComment on above:HDL CHOL ATP-III CLASSIFICATION Cardiovascular RiskHDL > or equal to 60 mg/dL LOWHDL < 40 mg/dL HIGHSerum or plasma total cholesterol/high density lipoprotein (HDL) cholesterol mass ratOrdered By: Shaikh Dotty on 01-09-2023 Cholesterol.total/Cholesterol in HDL [Mass ratio]5.7 {ratio}<5.0[facility] Hospitalodium [Moles/volume] in Serum or PlasmaOrdered By: Shaikh Dotty on 63-43-6969Yewajp [Moles/Vol]140 mmol/V587-504VyqselwavLancaster Municipal HospitalTriglyceride [Mass/volume] in Serum or PlasmaOrdered By: Shaikh Dotty on 89-88-1401Xnqgrrtwaidr [Mass/Vol]162 mg/dL0-149[facility] HospitalComment on above:TRIG ATP III CLASSIFICATIONTRIG less than 150 mg/dL NormalTRIG 150-199 mg/dL Borderline highTRIG 200-500 mg/dL High TRIG greater than 500 mg/dL Very highStandard traceable to the Center for Disease Co nrtrol and Prevention (CDC) test method.Urea nitrogen [Mass/volume] in Serum or PlasmaOrdered By: Shaikh Dotty on 40-26-0070Jjsb nitrogen [Mass/Vol]34 mg/dL 7-25[facility] HospitalWBC Auto (Bld) [#/Vol]Ordered By: Shaikh Dotty on 52-33-1573KUI (Bld) [#/Vol]5.6 10*3/uL4.1-10.5FOhioHealth Southeastern Medical CenterCNPNon 85-05-8791TVOQMlsdhbzlc (IRRFV) HELENAYESENIA ([id number]) 1945 M Date Time Provider Department 01/05/23 [...] will need to be scheduled at [facility] [place]. Allergies As of Date: 01/05/2023 (No Known Allergies) Date Reviewed: 11/19/2022 Reviewed by: Elizabeth Freire APRN.TELEPHONE QUOTATION CLERK - Fully Assessed Reason for Visit: Patient Question [2547] Appointment [[id number]] Prescriptions as of 01/05/2023 - [...] 11/19/2022 Encounter Status:Closed by EVELYN CHAMBERLAIN on 01/05/23NormalFaclover hill hospital HospitalCULTURE URINEon 78-87-1417BXMYTPY URINECulture Observations: LIGHT GROWTH OF MIXED SKIN DANIELLE. NO POTENTIAL PATHOGENS SEEN.NormalThe Flower HospitalComment on above:Performed By: #### URCX #### [facility] [address] [address] [address] Leighann Garcia Panel InformationOrdered By: Genoveva Nazario on 93-57-3062Nkoxrmik Specific Antigen Total2.810 ng/mL0.000-4.000[facility] Basophils Auto (Bld) [#/Vol]Ordered By: Zeinab Justice on 06-78-2861Wwyyekiqq (Bld) [#/Vol]0.0 10*3/uL0.0-0.2FOhioHealth Southeastern Medical CenterBasophils/100 WBC Auto (Bld)Ordered By: Zeinab Justice on 37-06-1937Iqywehfjk/100 WBC (Bld)0.5 % .[facility] HospitalBody fluid albumin measurement (mass/volume) Ordered By: Zeinab Justice on 63-92-5956Zustqcv (Body fld) [Mass/Vol]3.6 g/dL 3.2-5.5FOhioHealth Southeastern Medical CenterCreatinine and Glomerular filtration rate.predicted panel (S/P/Bld)Ordered By: Zeinab Justice on 30-37-0132Jdhdujzadf [Mass/Vol]1.65 mg/dL0.64-1.27[facility] HospitalEosinophils Auto (Bld) [#/Vol]Ordered By: Zeinab Justice on 98-93-3528Snghfkxprup (Bld) [#/Vol]0.2 10*3/uL0.0-0.45[facility] HospitalEosinophils/100 WBC Auto (Bld) Ordered By: Zeianb Justice on 40-35-4104Bqftrwxpzku/100 WBC (Bld)3.4 %.[facility] HospitalErythrocyte distribution width Auto (RBC) [Ratio]Ordered By: Zeinab Justice on 35-33-5058Vxgivcvazfx distribution width (RBC) [Ratio]15.0 % 12.0-14.8[facility] HospitalEstimated glomerular filtration rate (GFR) non- AmericanOrdered By: Zeinab Justice on 11-61-1456TNT/1.73 sq M.predicted among non-blacks MDRD (S/P/Bld) [Vol rate/Area]41 mL/MinLancaster Municipal HospitalGlobulin Calc (S) [Mass/Vol]Ordered By: Zeinab Justice on 40-96-4851Uezolwhb (S) [Mass/Vol]2.6 g/dLLancaster Municipal Hospital Hematocrit Auto (Bld) [Volume fraction]Ordered By: Zeinab Justice on 04-23-2022 Hematocrit (Bld) [Volume fraction]38.0 %38.8-50.0[facility] HospitalHemoglobin [Mass/volume] in BloodOrdered By: Zeinab Justice on 04-23-2022 Hemoglobin (Bld) [Mass/Vol]12.3 g/dL13.0-17.0[facility] - Hematology and Cell countsOrdered By: Zeinab Justice on 04-23-2022 Nucleated RBC/100 WBC (Bld) [Ratio]0.2 %0-0.5FOhioHealth Southeastern Medical Center Leukocytes [#/volume] in Blood by Automated countOrdered By: Zeinab Justice on 10-82-4669EAM (Bld) [#/Vol]5.3 10*3/uL4.5-11.0[facility] Lymphocytes Auto (Bld) [#/Vol]Ordered By: Zeinab Justice on 43-73-6634Nmobwufkixf (Bld) [#/Vol]0.9 10*3/uL1.00-4.8[facility] HospitalLymphocytes/100 WBC Auto (Bld)Ordered By: Zeinab Justice on 91-50-6181Tqeevngsygr/100 WBC (Bld) 17.1 %.[facility] CenterH Auto (RBC) [Entitic mass]Ordered By: Zeinab Justice on 08-04-7796PTM (RBC) [Entitic mass]30.6 pg27.5-35.2FOhioHealth Southeastern Medical CenterMCHC Auto (RBC) [Mass/Vol]Ordered By: Zeinab Justice on 72-32-5323SYOG (RBC) [Mass/Vol]32.4 g/dL32.5-35.6FOhioHealth Southeastern Medical CenterMCV Auto (RBC) [Entitic vol]Ordered By: Zeinab Justice on 40-77-5997LAV (RBC) [Entitic vol]94.4 fL83.5-101[facility] HospitalMonocytes Auto (Bld) [#/Vol]Ordered By: Zeinab Justice on 91-54-0333Whkotkyza (Bld) [#/Vol] 0.6 10*3/uL0.0-0.8[facility] HospitalMonocytes/100 WBC Auto (Bld) Ordered By: Zeinab Justice on 13-38-1252Heehrgfbt/100 WBC (Bld)10.5 %.[facility] HospitalNeutrophils Auto (Bld) [#/Vol]Ordered By: Zeinab Justice on 85-28-7239Rdqslpoxryq (Bld) [#/Vol]3.6 10*3/uL1.8-7.7FOhioHealth Southeastern Medical CenterNeutrophils/100 WBC Auto (Bld)Ordered By: Zeinab Justice on 04-23-2022 Neutrophils/100 WBC (Bld)68.5 %.[facility] HospitalNo Panel InformationOrdered By: Zeinab Justice on 36-89-0595Qjxginrzs GFR ()49 mL/MinLancaster Municipal HospitalComment on above:GFR estimated reference range: According to KDOQI guidelines, <60 ml/min/1.73m2 is sufficient todiagnose a patient with chronic kidney disease.Pharmacy Creatinine Clearance (ChemN/AFOhioHealth Southeastern Medical CenterPlatelet mean volume Auto (Bld) [Entitic vol]Ordered By: Zeinab Justice on 34-77-3830Yxwhuvwl mean volume (Bld) [Entitic vol]9.7 fL6.6-10.1FOhioHealth Southeastern Medical CenterPlatelets Auto (Bld) [#/Vol]Ordered By: Zeinab Justice on 63-01-0545Macvqruhs (Bld) [#/Vol]170 10*3/aD418-040OnbshnwtvLancaster Municipal HospitalProtein [Mass/volume] in Serum or PlasmaOrdered By: Zeinab Justice on 38-81-3674Qvqjvno [Mass/Vol]6.2 g/dL6.1-7.9 [facility] HospitalRBC Auto (Bld) [#/Vol]Ordered By: Zeinab Justice on 57-25-9554ZLW (d) [#/Vol]4.02 10*6/uL3.90-5.60[facility] Hospitalerum or plasma alanine aminotransferase measurement without P-5'-P (enzymatic activiOrdered By: Zeinab Justice on 56-09-8865YBR No additional P-5'-P [Catalytic activity/Vol]19 U/F77-92AqrplmrohMcCullough-Hyde Memorial Hospitalerum or plasma albumin/globulin mass ratioOrdered By: Zeinab Justice on 04-23-2022 Albumin/Globulin [Mass ratio]1.4 {ratio}[facility] Hospitalerum or plasma alkaline phosphatase measurement (enzymatic activity/volume)Ordered By: Zeinab Justice on 73-01-0211UZU [Catalytic activity/Vol]51 U/I91-82RidwglzosMcCullough-Hyde Memorial Hospitalerum or plasma anion gap determinationOrdered By: Zeinab Justice on 93-71-6585Uhqtl gap [Moles/Vol]13.2 mmol/L6.0-15.0[facility] Hospitalerum or plasma aspartate aminotransferase measurement (enzymatic activity/volume)Ordered By: Zeinab Justice on 96-54-6711FHI [Catalytic activity/Vol]18 U/E79-99EcwsekubaMcCullough-Hyde Memorial Hospitalerum or plasma calcium measurement (mass/volume)Ordered By: Zeinab Justice on 26-85-3901Sqmutcn [Mass/Vol]8.8 mg/dL8.2-10.2FThe Bellevue Hospitalerum or plasma chloride measurement (moles/volume)Ordered By: Zeinab Justice on 04-23-2022 Chloride [Moles/Vol]104 mmol/O40-925WrnbkgxmhMcCullough-Hyde Memorial Hospitalerum or plasma glucose measurement (mass/volume)Ordered By: Zeinab Justice on 04-23-2022 Glucose [Mass/Vol]98 mg/qS95-848XeehswowiLancaster Municipal HospitalComment on above:ADA recommended reference rangeRandom Glucose Reference Range is dependent on time and content of last meal. Glucose of more than 200 mg/dL in a nonstressed, ambulatory subject supports the diagnosisof Diabetes Mellitus.Serum or plasma potassium measurement (moles/volume)Ordered By: Zeinab Justice on 45-45-5525Dijfcerhp [Moles/Vol]4.6 mmol/L3.5-5.1FThe Bellevue Hospitalerum or plasma sodium measurement (moles/volume)Ordered By: Zeinab Justice on 22-73-7561Urixyi [Moles/Vol]136 mmol/C383-702LgynrdfsxMcCullough-Hyde Memorial Hospitalerum or plasma total bilirubin measurement (mass/volume)Ordered By: Zeinab Justice on 87-33-2236Liskwawjo [Mass/Vol]0.5 mg/dL0.3-1.2FThe Bellevue Hospitalerum or plasma total carbon dioxide measurement (moles/volume) Ordered By: Zeinab Justice on 39-03-4240XR9 [Moles/Vol]23.4 mmol/L22.0-30.0 [facility] Hospitalerum or plasma urea nitrogen measurement (mass/volume)Ordered By: Zeinab Justice on 09-45-4315Vjcz nitrogen [Mass/Vol]22 mg/dL9-[facility] HospitalCBC W Auto Differential panel (Bld)on 38-62-1451Nvdpactgy (Bld) [#/Vol]<0.11 k/uLTrumbull Memorial HospitalBasophils/100 WBC (Bld)0.3 %[facility] HospitalDifferential cell count method Nom (Bld)AutoCleveland ClinicEosinophils (Bld) [#/Vol]0.25 10*3/uL<0.46 k/uLTrumbull Memorial Hospital Eosinophils/100 WBC (Bld)3.2 %[facility] HospitalErythrocyte distribution width (RBC) [Ratio]14.3 %11.5 - 15.0 %[facility] HospitalHematocrit (Bld) [Volume fraction]39.3 %39.0 - 51.0 %[facility] HospitalHemoglobin (Bld) [Mass/Vol]12.8 g/dL Low13.0 - 17.0 g/dLTrumbull Memorial HospitalImmature granulocytes (Bld) [#/Vol]0.03 10*3/uL<0.10 k/uLTrumbull Memorial HospitalImmature granulocytes/100 WBC (Bld)0.4 % [facility] HospitalLymphocytes (Bld) [#/Vol]1.53 10*3/uL1.00 - 4.00 k/uLTrumbull Memorial HospitalLymphocytes/100 WBC (Bld)19.8 %OhioHealthH (RBC) [Entitic mass] 31.4 pg26.0 - 34.0 pgClevelKeenan Private HospitalMCHC (RBC) [Mass/Vol]32.6 g/dL30.5 - 36.0 g/dLOhioHealthV (RBC) [Entitic vol]96.6 fL80.0 - 100.0 fLCleveland ClinicMonocytes (Bld) [#/Vol]0.67 10*3/uL<0.87 k/uLPulaski ClinicMonocytes/100 WBC (Bld)8.7 %[facility] ClinicNeutrophils (Bld) [#/Vol]5.21 10*3/uL1.45 - 7.50 k/uLPulaski ClinicNeutrophils/100 WBC (Bld)67.6 %[facility] HospitalNucleated RBC (Bld) [#/Vol]<0.01 k/uLTrumbull Memorial HospitalNucleated RBC/100 WBC (Bld) [Ratio]0.0 /100 WBCTrumbull Memorial HospitalPlatelet mean volume (Bld) [Entitic vol]11.2 fL9.0 - 12.7 fLClevelnovant health charlotte orthopaedic hospital ClinicPlatelets (Bld) [#/Vol]183 10*3/uL150 - 400 k/uLTrumbull Memorial HospitalRBC (Bld) [#/Vol]4.07 10*6/uLLow4.20 - 6.00 m/[facility] HealthWBC (Bld) [#/Vol]7.71 10*3/uL3.70 - 11.00 k/uLPulaski ClinicCHEMISTRYOrdered By: SYSTEM SYSTEM on [id number] [Mass/Vol]4.0 g/dLNormal3.3 - 5.0 gm/dLFTMC Remisol Albumin/Globulin [Mass ratio]1.2 {ratio}Normal1.1 - 2.2FT[facility] RemisolALP [Catalytic activity/Vol]52 [iU]/kQobmcy79 - 98 Int._Unit/L[facility] RemisolALT No additional P-5'-P [Catalytic activity/Vol]15 [iU]/dNormal6 - 46 Int._Unit/[facility] RemisolAnion gap [Moles/Vol]10 mmol/LNormal6 - 16 mEq/L[facility] RemisolAST [Catalytic activity/Vol]17 [iU]/dNormal5 - 43 Int._Unit/[facility] RemisolBilirubin [Mass/Vol]0.3 mg/dLNormal0.0 - 1.1 mg/dLFTMC RemisolCalcium [Mass/Vol]9.1 mg/dL Normal8.9 - 11.1 mg/dLFTMC RemisolChloride [Moles/Vol]107 mmol/EGkfpdh060 - 111 mmol/L[facility]MC RemisolCO2 [Moles/Vol]25 mmol/UTyjbir07 - 31 mmol/L[facility]MC Remisol Creatinine [Mass/Vol]1.8 mg/dLHigh0.5 - 1.3 mg/dLFTMC RemisolGFR/1.73 sq M.predicted among blacks MDRD (S/P/Bld) [Vol rate/Area]45 mL/min/1.73 m2Low >=59mL/min/1.73 m2FT Chem SGFR/1.73 sq M.predicted among non-blacks MDRD (S/P/Bld) [Vol rate/Area]37 mL/min/1.73 m2Low>=59mL/min/1.73 m2FT Chem S Globulin (S) [Mass/Vol]3.3 g/dLNormal1.4 - 4.0 gm/dLFTMC RemisolGlucose [Mass/Vol]95 mg/oYCxxijm82 - 199 mg/dLFTMC RemisolPotassium [Moles/Vol]4.5 mmol/LNormal3.5 - 5.3 mmol/LFTMC RemisolProtein [Mass/Vol]7.3 g/dLNormal6.0 - 7.8 gm/dLFTMC RemisolSodium [Moles/Vol]137 mmol/MJqecdy760 - 145 mmol/LFTMC RemisolUrea nitrogen [Mass/Vol]27 mg/dLHigh5 - 21 mg/dLFTMC RemisolUrea nitrogen/Creatinine [Mass ratio]15 mg/vcGrhqvg89 - 20[facility] RemisolHEMATOLOGY Ordered By: SYSTEM SYSTEM on 17-07-4924Lqulbctjf/100 WBC (Bld)0.9 %Normal0.0 - 2.0 %[facility] HemeAutoSSBasophils/Leukocytes Auto (Bld) [Pure # fraction]0.1 E9/L Normal0.0 - 0.2 E9/LFTMC HemeAutoSSEosinophils/100 WBC (Bld)2.9 %Normal0.0 - 8.0 %[facility] HemeAutoSSEosinophils/Leukocytes Auto (Bld) [Pure # fraction]0.2 E9/L Normal0.0 - 0.5 E9/LFTMC HemeAutoSSLymphocytes/100 WBC (Bld)23.0 %Kdxhev16.0 - 50.0 %[facility] HemeAutoSSLymphocytes/Leukocytes Auto (Bld) [Pure # fraction]1.6 E9/L Normal1.0 - 4.0 E9/LFTMC HemeAutoSSMonocytes/100 WBC (Bld)9.4 %Normal4.0 - 14.0 %[facility] HemeAutoSSMonocytes/Leukocytes Auto (Bld) [Pure # fraction]0.6 E9/LNormal 0.2 - 1.0 E9/L[facility] HemeAutoSSNeutrophils/100 WBC (Bld)63.8 %Oavnhq00.0 - 75.0 % [facility] HemeAutoSSNeutrophils/Leukocytes Auto (Bld) [Pure # fraction]4.4 E9/LNormal 2.0 - 7.5 E9/LFTMC HemeAutoSSHEMATOLOGYOrdered By: Tyshawn Winchester on 45-02-6908Cxdkudczwgg distribution width (RBC) [Ratio]15.0 %High10.9 - 14.2 % [facility] HemeAutoSSHematocrit (Bld) [Volume fraction]40.2 %Runckj89.7 - 49.0 %[facility] HemeAutoSSHemoglobin (Bld) [Mass/Vol]13.2 g/dLLow13.5 - 17.5 gm/dLFTMC HemeAutoSSMCH (RBC) [Entitic mass]30.2 gaJcnphq82.0 - 34.0 pgFTMC HemeAutoSSMCHC (RBC) [Mass/Vol]32.9 g/iOKimnyr49.4 - 36.0 gm/dLFTMC HemeAutoSSMCV (RBC) [Entitic vol]91.6 rXTlhzah35.0 - 100.0 fLFTMC HemeAutoSSPlatelet mean volume (Bld) [Entitic vol]9.8 fLNormal6.4 - 10.8 fLFTMC HemeAutoSSPlatelets (Bld) [#/Vol]197.0 E9/JPixmuy289.0 - 500.0 E9/L[facility]MC HemeAutoSSRBC (Bld) [#/Vol]4.4 E12/LNormal4.3 - 5.9 E12/LFTMC HemeAutoSSWBC corrected for nucl RBC Auto (Bld) [#/Vol]6.9 E9/LNormal4.0 - 11.0 E9/L[facility] HemeAutoSSCovid-19 PCR (CVDTB)on 75-28-2621DQAP-CoV-2 (COVID-19) RNA WENCESLAO+probe Ql (Unsp spec)Not detectedNormal NOT DETECTEDThe Flower HospitalComment on above:Result Comment: This test is not yet approved or cleared by the [place] FDA. When there are no FDA- approved or cleared tests available, and other criteria are met, FDA can make tests available under an emergency access mechanism called an Emergency Use Authorization (EUA). The EUA for this test is supported by the Warehouse Operations Manager of Health and Human Service's (HHS's) declaration [...] consistent with SARS-CoV-2.Performed By: #### CVDTBH #### [facility] [address] [address] [address] Leighann SantanaPTH INTACTon 95-20-8000MTJ, Ropvoi07 pg/eYBmbdnh09-42Wdt [facility] HospitalComment on above:Performed By: #### PTHINT #### [facility] [address] [address] [address] Leighann Gutiérrez D 25-OH LABCORPon 32-71-6873Rfcmstn D, 25-Kgaqktp09.2 ng/mL Critically low30.0-100.0The Flower HospitalComment on above:Result Comment: Vitamin D deficiency has been defined by the [place] of Medicine and an Endocrine Society practice guideline as a level of serum 25-OH vitamin D less than 20 ng/mL (1,2). The Endocrine Society went on to further define vitamin D insufficiency as a level between 21 and 29 ng/mL (2). 1. IOM ([place] of Medicine). 2010. Dietary reference intakes for calcium and D. [place]: The National Academies Press. 2. Grecia MF, Wayne [place], John VILLEGAS, et al. Evaluation, treatment, and prevention of vitamin D deficiency: an Endocrine Society clinical practice guideline. JCEM. 2010; 96(7):1911-30.Performed By: #### VITADLC #### [facility] [address] [place] [address] Dr. Leighann SantanaHEMOGRAM AND PLATELon 83-31-9021Ogtlrrxbwn (Bld) [Volume fraction]39.3 %Critically low42.0-54.0The Flower HospitalComment on above: Performed By: #### HH ####[facility] [address] [id number]. Leighann SantanaHemoglobin (Bld) [Mass/Vol]12.5 g/dL Critically low14.0-18.0The [facility] HospitalComment on above:Performed By: #### HH ####[facility] [address] [address]Dr. [facility]ann [facility]anaH[facility] (RBC) [Entitic mass]30.2 cxJktgly28.9-34.0[facility] Comment on above:Performed By: #### HH ####[facility] [address] [address]Dr. Leighann SantanaHC (RBC) [Mass/Vol]31.8 g/dL Cuayuj70.9-35.2The [facility] HospitalComment on above:Performed By: #### HH ####[facility] [address] [address]Dr. Nathaniel SantanaV (RBC) [Entitic vol]94.9 fLCritically high80.0-94.0The [facility] HospitalComment on above:Performed By: #### HH ####[facility] [address] [address]Dr. Leighann SantanaPLT191 103/ul Xcsxbi259-249Ubm [facility] HospitalComment on above:Performed By: #### HH ####[facility] [address] [address]Dr. Nathaniel SantanaRBC4.14 106/ulCritically low4.70-6.10The Flower HospitalComment on above:Performed By: #### HH ####[facility] [address] [address]Dr. Leighann SantanaWBC7.3 103/ulNormal4.0-11.0The F[facility] HospitalComment on above:Performed By: #### HH ####[facility] [address] [address]Dr. Leighann SantanaMAGNESIUMon 78-14-4025Pqrkszqvu [Mass/Vol]1.9 mg/dLNormal1.8-2.4The [facility] HospitalComment on above:Performed By: #### RENAL, MG, URIC ####[facility] [address] [address]Dr. Leighann [facility] HospitalRENAL FUNCTION PANELon 44-65-4299Uzwczlk [Mass/Vol]3.4 g/dLNormal3.4-5.0[facility] Comment on above:Performed By: #### RENAL, MG, URIC ####[facility] [address] [address]Dr. Yilan ChangCalcium [Mass/Vol]8.7 mg/dLNormal8.5-10.1The [facility] HospitalComment on above:Performed By: #### RENAL, MG, URIC ####[facility] [address] [place], [place] [address]Dr. Yilan ChangChloride [Moles/Vol]105 mmol/LNormal 98-107The [facility] HospitalComment on above:Performed By: #### RENAL, MG, URIC ####[facility] W[address] [place], [place] [address]Dr. Yilan ChangCO2 [Moles/Vol]26.5 mmol/LHnwsop68.0-32.0The [facility] HospitalComment on above:Performed By: #### RENAL, MG, URIC ####[facility] Jhwsm[address]be[address] [place], [place] [address]Dr. Yilan ChangCreatinine [Mass/Vol]1.77 mg/dLCritically high0.70-1.30The [facility] Hospitalment on above:Performed By: #### RENAL, MG, URIC ####[facility] Pdyrhpbp[address] [place], [place] [address]Dr. Yilan ChangEGFR-AF JYOGQADA52 mL/min/1.63j1Iqtyuvnmso low>=60The [facility] Hospitalment on above:Performed By: #### RENAL, MG, URIC ####[facility] Mf[address] [place], [place] [address]Dr. Yilan ChangEGFR-NON AF YLGVGMFG14 mL/min/1.73m2 Critically low>=60The [facility] Hospitalment on above:Performed By: #### RENAL, MG, URIC ####[facility] [address] [place], [place] [address]Dr. Yilan ChangGlucose [Mass/Vol]136 mg/dLCritically nplz50-272Knt [facility] HospitalComment on above:Performed By: #### RENAL, MG, URIC ####[facility] [address] [address]Dr. Ghadalan ChangPhosphate [Mass/Vol]3.6 mg/dLNormal2.6-4.7[facility] Comment on above:Performed By: #### RENAL, MG, URIC ####[facility] [address] [address]Dr. Yilan ChangPotassium [Moles/Vol]4.5 mmol/LNormal3.5-5.1The [facility] HospitalComment on above: Performed By: #### RENAL, MG, URIC ####[facility] [address] [address]Dr. Yilan ChangSodium [Moles/Vol]140 mmol/LNormal 136-145The [facility] HospitalComment on above:Performed By: #### RENAL, MG, URIC ####[facility] [address] [address]Dr. Leighann ChangUrea nitrogen [Mass/Vol]25.0 mg/dLCritically high7.0-18.0The [facility] HospitalComment on above:Performed By: #### RENAL, MG, URIC ####[facility] [address] [address]Dr. Leighann SantanaUA RANDOM W/MICROSCOPICon 28-32-4139NPLCPZLWSPTIZUcscegffXBIM SEENAshtabula County Medical CenterComment on above:Performed By: #### UAMIC #### [facility] [address] [place] [address] Dr. Leighann Curtisirubin Ql (U)NegativeNormalNEGATIVEAshtabula County Medical Center Comment on above:Performed By: #### UAMIC #### [facility] [address] [address] [address] Leighann SantanaCASTNONElbert SEENNormalNONE SEENAshtabula County Medical CenterComment on above:Performed By: #### UAMIC #### [facility] [address] [address] [address] Leighann SantanaClarity (U)CLEARNormalCLEARThe Flower HospitalComment on above: Performed By: #### UAMIC #### [facility] [address] [address] [address] Leighann Meza (U)LT. YELLOWNormalYELLOWAshtabula County Medical CenterComhurley medical center on above:Performed By: #### UAMIC #### [facility] [address] [address] [address] Leighann SantanaCrystals LM Nom (Urine sed)NONE SEENNormalNONE SEENAshtabula County Medical CenterComment on above:Performed By: #### UAMIC #### [facility] [address] [place] [address] Dr. Lawton ChangEpithelial cells LM Ql (Urine sed)FEWAbnormalNONE SEEN /RAREAshtabula County Medical CenterComhurley medical center on above:Performed By: #### UAMIC #### [facility] [address] [place] [address] Dr. Leighann SantanaGlucose Ql (U)NegativeNormalNEGATIVEAshtabula County Medical CenterComhurley medical center on above:Performed By: #### UAMIC #### [facility] [address] [place] [address] Dr. Leighann SantanaHemoglobin Ql (U)TRACE-INTACTAbnormalNEGATIVEAshtabula County Medical CenterComhurley medical center on above:Performed By: #### UAMIC #### [facility] [address] [place] [address] Dr. Leighann SantanaKetones Ql (U)NegativeNormalNEGATIVEAshtabula County Medical CenterComhurley medical center on above:Performed By: #### UAMIC #### [facility] [address] [place] [address] Dr. Leighann SantanaLEUKOCYTESMODERATEAbnormalNEGATIVEAshtabula County Medical CenterComhurley medical center on above:Performed By: #### UAMIC #### [facility] [address] [place] [address] Dr. Leighann SantanaMUCOUSNONE SEENNormalNONE SEENAshtabula County Medical CenterComhurley medical center on above:Performed By: #### UAMIC #### [facility] [address] [place] [address] Dr. Leighann SantanaNitrite Ql (U)PositiveAbnormalNEGATIVEAshtabula County Medical Center Comment on above:Performed By: #### UAMIC #### [facility] [address] [address] [address] Leighann SantanapH (U)5.5 [pH]Normal5-9The [facility] HospitalComment on above: Performed By: #### UAMIC #### [facility] [address] [address] [address] Leighann SantanaIsvhwETL8-3Wfvhjdyr8-8Rtg [facility] HospitalComment on above:Performed By: #### UAMIC #### [facility] [address] [address] [address] Leighann SantanaSPEC GRAVITY>=1.119Fydynhlp8.005-<=1.025The [facility] Comment on above:Performed By: #### UAMIC #### [facility] [address] [place] [address] Dr. Leighann SantanaUA VFHCERB89 mg/dlAbnormalNEGATIVE/ TRACEThe [facility] Comment on above:Performed By: #### UAMIC #### [facility] [address] [address] [address] Leighann Mallorybilino Qn (U)0.2 {Jing'U}/dLNormal0.2 - 1.0The [facility] HospitalComment on above:Performed By: #### UAMIC #### [facility] [address] [address] [address] Leighann SantanaNwzmgDGZ33-98RqkxwbptDWJZ SEENThe Flower HospitalComment on above: Performed By: #### UAMIC #### [facility] [address] [address] [address] Leighann SantanaURIC ACID SERUMon 30-53-3140Vfijl [Mass/Vol]6.5 mg/dLNormal 3.5-7.2The [facility] HospitalComment on above:Performed By: #### RENAL, MG, URIC ####[facility] [address] [address]Dr. Leighann Troy T PROTEIN CREAT RATIOon 52-83-9285Kgyiduo (U) [Mass/Vol]73.2 mg/dLCritically high<=12.0As[facility] Medical CenterComment on above:Performed By: #### URTPCR #### [facility] [address] [address] [address] Leighann Guzman PROT CREAT RAT0.42NormalThe Flower HospitalComment on above: Performed By: #### URTPCR #### [facility] [address] [address] [address] Leighann Troy NEBIV112.21 mg/yGGmtlsi97.00-300.00[facility] Comment on above:Performed By: #### URTPCR #### [facility] [address] [address] [address] Leighann SantanaSURGICAL PATH REPORTon 54-82-4868YDHQZAWS PATH REPORTSSamaritan Hospital Department of Pathology [address] [place] [address] Name: YESENIA BROUSSARD : 1945 [facility] [id number] Number: Gender: Male Location: [facility] Admit 75 years Attending BARBARA JOHNSTON Age: Provider: Ordering BARBARA JOHNSTON Provider: Consulting: Surgical Pathology Report ACCESSION: COLLECTED DATE/TIME: RECEIVED DATE/TIME: PATHOLOGIST: [id number] 06/06/2021 16:30 EST 06/07/2021 11:15 EST QUINN MAK, [facility] Final Diagnosis Report for [facility], [place] PROSTATE TISSUE; TURP: - PROSTATIC ACINAR [...] Print Date/ 06/11/2021 16:16 EST Number: Time: [facility] Department of Pathology [address] [place] [address] Name: YESENIA BROUSSARD : 1945 [facility] [id number] Number: Gender: Male Location: [facility] Admit 75 years Attending BARBARA JOHNSTON Age: Provider: Ordering BARBARA JOHNSTON Provider: Consulting: Surgical Pathology Report ACCESSION: COLLECTED DATE/TIME: RECEIVED DATE/TIME: PATHOLOGIST: [id number] 06/06/2021 16:30 EST 06/07/2021 11:15 EST QUINN [...] Print Date/ 06/11/2021 16:16 EST Number: Time: [facility] Department of Pathology [address] [place] [address] Name: YESENIA BROUSSARD : 1945 [facility] [id number] Number: Gender: Male Location: [facility] Admit 75 years Attending BARBARA JOHNSTON Age: Provider: Ordering BARBARA JOHNSTON Provider: Consulting: Surgical Pathology Report ACCESSION: COLLECTED DATE/TIME: RECEIVED DATE/TIME: PATHOLOGIST: [id number] 06/06/2021 16:30 EST 06/07/2021 11:15 EST QUINN MAK, [facility] Gross Description Labeled prostate tissue. Received in formalin are multiple hemicylindrical segments of khan- pink firm, but pliable tissue. The segments have an aggregate weight of 12 grams and measure in aggregate 7.8 x 6.4 x 2.0 cm. There are calculi present amongst the tissue segment. The specimen is entirely submitted in twelve cassettes. MP/dakotah 06/07/2021 Tissue pathology report for: [facility], [address] [place] [address]; PATHOLOGY SERVICES [facility] BY [facility], [facility] (CLIA #[id number]) in cooperation with [facility] at [address] [place] [address] (CLIA #[id number]) Codes CPT CODE: 37065 Print Date06/11/2021 16:16 EST Number: Time: [facility] HospitalComment on above:Performed By: #### [id number] #### [facility] Services [address] [place] [address] Microarray Analyst: Gigi Peters MD Vital Signs Date TimeVital SignValuePerforming UiflqmeywKlkybade93-12-4213 11:020400Body felooo526.8 cmBrian Avalos MD Work Phone: [phone])[address]10-14-2025 11:02-0400 Body mass index (BMI) [Ratio]28.3 kg/m2Brian Avalos MD Work Phone: [phone]10-14-2025 11:02-0400 Body jaxidx83.35 kgBrian Avalos MD Work Phone: [phone] [place], [place] 4653010-14-2025 11:02-0400 Diastolic blood abvomjkn31 mm[Hg]Brian Avalos MD Work Phone: [phone])[address] [place], [place] 1380710-14-2025 11:02-0400 Heart rate71 /minBrian Avalos MD Work Phone: [phone])[address] [place], [place] 1380710-14-2025 11:02-0400 Respiratory rate20 /minBrian Avalos MD Work Phone: [phone] [place], [place] 1380710-14-2025 11:02-0400 SaO2% (BldA) [Mass fraction]97 %Brian Avalos MD Work Phone: [phone])[address] [place], [place] 4653010-14-2025 11:02-0400 Systolic blood zyeppvmy239 mm[Hg]Brian Avalos MD Work Phone: [phone] [place], [place] 1380709-22-2025 11:37-0400 Body nnlcjy406.8 cmBrian Avalos MD Work Phone: [phone] [place], [place] 1380709-22-2025 11:37-0400 Body mass index (BMI) [Ratio]28.1 kg/m2Brian Avalos MD Work Phone: [phone] [place], [place] 1380709-22-2025 11:37-0400 Body tfqnae68.01 kgBrian Avalos MD Work Phone: [phone]09-22-2025 11:37-0400 Diastolic blood qgfmfmgy54 mm[Hg]Brian Avalos MD Work Phone: [facility]09-22-2025 11:37-0400 Heart rate75 /minBrian Avalos MD Work Phone: [facility]09-22-2025 11:37-0400 Respiratory rate18 /minBrian Avalos MD Work Phone: [facility]09-22-2025 11:37-0400 SaO2% (BldA) [Mass fraction]97 %Brian Avalos MD Work Phone: [facility]09-22-2025 11:37-0400 Systolic blood nqfyslfe018 mm[Hg]Brian Avalos MD Work Phone: [phone]08-20-2025 09:27-0400 Body lzrnaq422.8 cmNA Luz Marina MAK Work Phone: [facility]08-20-2025 09:27-0400Body mass index (BMI) [Ratio]27.99 kg/m2PRASHANTH Nazario MD Work Phone: [facility]08-20-2025 09:27-0400Body temperature 98.6 [degF]PRASHANTH Nazario MD Work Phone: [facility]08-20-2025 09:27-0400Body qavqhm14.5 kgPRASHANTH Nazario MD Work Phone: [facility]08-20-2025 09:27-0400Diastolic blood ebqezzlo21 mm[Hg]PRASHANTH Nazario MD Work Phone: [facility]08-20-2025 09:27-0400Heart rate92 /min PRASHANTH Nazario MD Work Phone: [facility]08-20-2025 09:27-0400Respiratory rate 16 /AmberPRASHANTH Nazario MD Work Phone: [facility]08-20-2025 09:27-8345MsO5% (BldA) [Mass fraction]96 %PRASHANTH Nazario MD Work Phone: [facility]08-20-2025 09:27-0400Systolic blood dbfdodse649 mm[Hg]PRASHANTH Nazario MD Work Phone: [facility]04-01-2025 11:30-0400Diastolic blood rvrmufma48 mm[Hg]Jose Hector SCALE ADJUSTER-TELEPHONE QUOTATION CLERK Work Phone: [facility]04-01-2025 11:30-0400 Systolic blood necycglu839 mm[Hg]Jose Hector SCALE ADJUSTER-TELEPHONE QUOTATION CLERK Work Phone: [facility]04-01-2025 11:16-0400 Body qapdbn808.8 cmJose Hector SCALE ADJUSTER-TELEPHONE QUOTATION CLERK Work Phone: [facility]04-01-2025 11:16-0400 Body mass index (BMI) [Ratio]28.55 kg/x6Gkcomprashanth Hector SCALE ADJUSTER-TELEPHONE QUOTATION CLERK Work Phone: [facility]04-01-2025 11:16-0400 Body wdvuhl63.27 kgJose Hector SCALE ADJUSTER-TELEPHONE QUOTATION CLERK Work Phone: [facility]04-01-2025 11:16-0400 Heart rate84 /Jyoti Hector SCALE ADJUSTER-TELEPHONE QUOTATION CLERK Work Phone: [facility]03-17-2025 10:39-0400 Body frvdon828.8 cmBrian Avalos MD Work Phone: [facility]03-17-2025 10:39-0400 Body mass index (BMI) [Ratio]28.4 kg/m2Brian Avalos MD Work Phone: [facility]03-17-2025 10:39-0400 Body yzatjadjuye55.8 [degF]Brian Avalos MD Work Phone: [facility]03-17-2025 10:39-0400 Body rhinkh06.92 kgBrian Avalos MD Work Phone: [facility]03-17-2025 10:39-0400 Diastolic blood fzbafyoo85 mm[Hg]Brian Avalos MD Work Phone: [phone]03-17-2025 10:39-0400 Heart rate85 /minBrian Avalos MD Work Phone: [phone]03-17-2025 10:39-0400 Respiratory rate16 /minBrian Avalos MD Work Phone: [phone] [place], [place] 1380703-17-2025 10:39-0400 SaO2% (BldA) [Mass fraction]98 %Brian Avalos MD Work Phone: [phone])[address] [place], [place] 1380703-17-2025 10:39-0400 Systolic blood qblduazb076 mm[Hg]Brian Avalos MD Work Phone: [phone] [place], [place] 1380702-13-2025 11:14-0500 Body nydveq038.8 cmBrian Avalos MD Work Phone: [phone])[address] [place], [place] 1380702-13-2025 11:14-0500 Body qwmacambhmd22 [degF]Brian Avalos MD Work Phone: [phone] [place], [place] 1380702-13-2025 11:14-0500 Body kgBrian Avalos MD Work Phone: [phone])[address] [place], [place] 1380702-13-2025 11:14-0500 Diastolic blood mm[Hg]Brian Avalos MD Work Phone: [phone] [place], [place] 1380702-13-2025 11:14-0500 Heart ihdt568 /minBrian Avalos MD Work Phone: [phone]02-13-2025 11:14-0500 Respiratory rate18 /minBrian Avalos MD Work Phone: [phone]02-13-2025 11:14-0500 SaO2% (BldA) [Mass fraction]96 %Brian Avalos MD Work Phone: [facility]02-13-2025 11:14-0500 Systolic blood upbnmocr621 mm[Hg]Brian Avalos MD Work Phone: [facility]02-12-2025 13:16-0500 Body adesze360.8 cmBrittany Ward RECEIVING CLERK Work Phone: [facility] HospitalGftawrksbe54-11-9069 13:16-0500Body mass index (BMI) [Ratio]28.84 kg/o1Disrgvdt Ward RECEIVING CLERK Work Phone: [facility] HospitalGaaqqpjxmo29-29-0707 13:16-0500Body temperature 97.7 [degF]Nasir Ward RECEIVING CLERK Work Phone: [facility] HospitalFivwycwkpb80-75-7699 13:16-0500Body hummlq84.17 kgBrittany Ward RECEIVING CLERK Work Phone: [facility] HospitalEfecyvwsra91-21-6080 13:16-0500Diastolic blood upkpucht54 mm[Hg]Nasir Ward RECEIVING CLERK Work Phone: [facility] HospitalKdrwzelgvs85-82-9668 13:16-0500Heart rate94 /min Nasir Ward RECEIVING CLERK Work Phone: [facility] HospitalLzcrsjkwrv85-62-2691 13:16-0500Respiratory rate16 /minBrnathenjustin Ward RECEIVING CLERK Work Phone: [facility] HospitalEfkoydckar21-75-7028 13:16-7967InH4% (BldA) [Mass fraction]94 %Nasir Ward RECEIVING CLERK Work Phone: [facility] HospitalBaslhnttum78-40-0593 13:16-0500Systolic blood iqifkfws976 mm[Hg]Nasir Ward RECEIVING CLERK Work Phone: [facility] HospitalMucmjvffda28-58-6523 11:12-0500Body sgujoj911.8 cmBrittany Ward RECEIVING CLERK Work Phone: [place] [address]Nkagtibemf44-76-0012 11:12-0500Body mass index (BMI) [Ratio]27.86 kg/g7Wzjwpxgm Ward RECEIVING CLERK Work Phone: [phone] [place], [place] [address]Daeoltlywi35-96-2347 11:12-0500Body temperature 96.3 [degF]Nasir Awrd RECEIVING CLERK Work Phone: [place] [address]Bdrtmjcsxv93-06-5746 11:12-0500Body fubskl35.09 kgBrtariq Ward RECEIVING CLERK Work Phone: [phone] [place], [place] [address]Jjoxorslro17-58-4626 11:12-0500Diastolic blood nhvdiajx00 mm[Hg]Nasir Ward RECEIVING CLERK Work Phone: [phone] [place], [place] [id number] 11:12-0500Heart rate93 /min Nasir Ward RECEIVING CLERK Work Phone: [place] [id number] 11:12-0500Respiratory rate16 /minBrtariq Ward RECEIVING CLERK Work Phone: [place] [id number] 11:12-5048LfW8% (BldA) [Mass fraction]93 %Nasir Ward RECEIVING CLERK Work Phone: [place] [id number] 11:12-0500Systolic blood ljcuitcs257 mm[Hg]Nasir Ward RECEIVING CLERK Work Phone: [phone]([phone] [place], [place] [id number] 11:31-0500Blood Pressure LocationBarbara JOHNSTON [facility] [facility]11-18-2024 11:31-0500Body .6 [degF]Barbara JOHNSTON [facility]11-18-2024 11:31-0500Diastolic blood iptgvgjt44 mm[Hg]Barbara JOHNSTON [facility]11-18-2024 11:31-0500Heart rate95 /minPatrick JOHNSTON [facility]11-18-2024 11:31-0500Respiratory rate16 /minPatrick JOHNSTON [facility]11-18-2024 11:31-0500Systolic blood aepwqmmu347 mm[Hg]Barbara JOHNSTON [facility]09-30-2024 08:28-0400Body cvaqnz955.8 cmPHYSICIAN [facility]09-30-2024 08:28-0400Body mass index (BMI) [Ratio]27.4 kg/b4RAHDXLWTU [facility]09-30-2024 08:28-0400 Body yakvcdipkfa49.8 [degF]PHYSICIAN [facility] 02-29-2024 08:28-0400Body ocmybk95.86 kgPHYSICIAN [facility]09-30-2024 08:28-0400Diastolic blood fsmimaep89 mm[Hg]PHYSICIAN [facility]09-30-2024 08:28-0400Heart rate98 /min PHYSICIAN [facility]09-30-2024 08:28-0400 Respiratory rate16 /minPHYSICIAN [facility] 02-29-2024 08:28-8971XgR8% (BldA) [Mass fraction]99 %PHYSICIAN [facility]09-30-2024 08:28-0400Systolic blood mm[Hg]PHYSICIAN [facility]08-21-2024 17:46-0400 Body jzzual783.8 cmNasir Ward NP Work Phone: [facility] HospitalNcumhpqlgy50-31-6516 17:46-0400Body mass index (BMI) [Ratio]27.55 kg/h9Mbphivae Ward RECEIVING CLERK Work Phone: noWestern [facility] CenterTlxvbntwsr11-90-4095 17:46-0400Body temperature 98.49 [degF]Nasir Gascapatrick RECEIVING CLERK Work Phone: [facility] HospitalTphubkfoew60-24-7772 17:46-0400Body iflgaf83.09 kgNasir Gascapatrick RECEIVING CLERK Work Phone: [facility] HospitalKpwesjpxqy77-66-5280 17:46-0400Diastolic blood vfbaoesy74 mm[Hg]Nasir Gascapatrick RECEIVING CLERK Work Phone: [facility] HospitalMcypvuilfi11-13-8160 17:46-0400Heart rate76 /min Nasir Gascapatrick RECEIVING CLERK Work Phone: noIN HealthcareComment on above:97% [id number] 17:46-0400Systolic blood gbhbquit964 mm[Hg]Nasir Gascapatrick RECEIVING CLERK Work Phone: [facility] HospitalBubgjpqmyo22-29-3019 14:33-0400Body mass index (BMI) [Ratio]27.49 kg/m2PRASHANTH Nazario MD Work Phone: [facility]07-16-2024 14:33-0400Body temperature 97.81 [degF]PRASHANTH Nazario MD Work Phone: [facility]07-16-2024 14:33-0400Body rkjust90.9 kgPRASHANTH Nazario MD Work Phone: [place] [address]-16-2024 14:33-0400Diastolic blood pfqozifb30 mm[Hg]PRASHANTH Nazario MD Work Phone: [facility]07-16-2024 14:33-0400Heart rate86 /min PRASHANTH Nazario MD Work Phone: [facility]07-16-2024 14:33-0400Respiratory rate 16 /AmberPRASHANTH Nazario MD Work Phone: [place] [address]-16-2024 14:33-4532HpL0% (BldA) [Mass fraction]98 %PRASHANTH Nazario MD Work Phone: [facility]07-16-2024 14:33-0400Systolic blood bwwyvpnq546 mm[Hg]PRASHANTH Nazario MD Work Phone: [facility]05-16-2024 09:17-0400Body .8 cmMD Shaikh Storm Work Phone: 1(178)565-[address] [place], [place] 9673805-16-2024 09:17-0400 Body mass index (BMI) [Ratio]28.1 kg/m2MD Shaikh Storm Work Phone: 1(604)[address]05-16-2024 09:17-0400 Body tuhenmvxuap96.8 [degF]MD Shaikh Storm Work Phone: 1(704)[address]05-16-2024 09:17-0400 Body fyzdfh74 kgMD Shaikh Dotty Work Phone: 1(310)[address]05-16-2024 09:17-0400 Diastolic blood oxcojggo12 mm[Hg]MD Shaikh Storm Work Phone: 1(371)[address]05-16-2024 09:17-0400 Heart rate67 /minMD Shaikh Storm Work Phone: 1(128)203-[address] [place], [place] [address]673805-16-2024 09:17-0400 Respiratory rate16 /minMD Shaikh Storm Work Phone: 1(232)833-[address] [place], [place] 9673805-16-2024 09:17-0400 SaO2% (BldA) [Mass fraction]94 %MD Shaikh Storm Work Phone: 1(215)575-[address] [place], [place] 9[address]3805-16-2024 09:17-0400 Systolic blood mm[Hg]MD Shaikh Storm Work Phone: 1(030)[address]04-19-2024 10:50-0400 Blood Pressure LocationPatrick PRESTON [facility]04-19-2024 10:50-0400Diastolic blood zyoqnxiq91 mm[Hg]Barbara JOHNSTON [facility]04-19-2024 10:50-0400Heart rate76 /minPatrick PRESTON [facility]04-19-2024 10:50-0400Respiratory rate16 /minPatrick PRESTON [facility]04-19-2024 10:50-0400Systolic blood bobkxfrx096 mm[Hg]Barbara JOHNSTON [facility]03-19-2024 12:12-0400Diastolic blood xcinsjue30 mm[Hg]Chaim Grayson DO Work Phone: [facility]03-19-2024 12:12-0400 Systolic blood xdohjodr439 mm[Hg]Chaim Grayson DO Work Phone: [facility]03-19-2024 11:52-0400 Body miivbb826.8 cmWilavernvalencia Kenan DO Work Phone: [facility]03-19-2024 11:52-0400 Body mass index (BMI) [Ratio]28.12 kg/f9Rjalxes Kenan DO Work Phone: [facility]03-19-2024 11:52-0400 Body zevhml43.91 kgWillmarkie Kenan DO Work Phone: [facility]03-19-2024 11:52-0400 Heart rate80 /minChaim Grayson DO Work Phone: [facility]01-18-2024 13:11-0500 Diastolic blood mm[Hg]Tram [address] [place] [address] 06-18-2023 13:11-0500Heart rate86 /minEly [address] [place] [address] 06-18-2023 13:11-0500Systolic blood xvvozzjp812 mm[Hg]Tram [address] [place], [place] 9959001-12-2024 11:11-0500Body qixkpp275.8 cmKodi Reynolds MD Work Phone: [facility]01-12-2024 11:11-0500Body gemzqb21.91 kgKodi Reynolds MD Work Phone: [facility]01-04-2024 10:19-0500Diastolic blood dptzocdb40 mm[Hg]Chaim Grayson DO Work Phone: [facility]01-04-2024 10:19-0500 Systolic blood gdcknugi679 mm[Hg]Chaim Grayson DO Work Phone: [facility]01-04-2024 10:18-0500 Body mmpqoz094.8 cmWijamila Grayson DO Work Phone: [facility]01-04-2024 10:18-0500 Body mass index (BMI) [Ratio]28.41 kg/o7ClduaitChaim Austindon DO Work Phone: [facility]01-04-2024 10:18-0500 Body .81 kgChaim Austindon DO Work Phone: [facility]01-04-2024 10:18-0500 Heart rate83 /minChaim Austindon DO Work Phone: [facility]11-21-2023 09:05-0500 Diastolic blood akjmfusi40 mm[Hg]CLAIRE JAMES [facility]11-21-2023 09:05-0500Heart rate76 /Bryanna JAMES [facility]11-21-2023 09:05-0500Mean blood ivzskafd273 mm[Hg]CLAIRE BRITNI [facility]11-21-2023 09:05-0500Systolic blood gopyksvh668 mm[Hg]CLAIRE BRITNI [facility]11-21-2023 08:20-0500Blood Pressure LocationJENNIFER BRITNI [facility] [place] [address]-21-2023 08:20-0500Diastolic blood losayzvf46 mm[Hg]CLAIRE BRITNI [facility]11-21-2023 08:20-0500Heart rate79 /minJENNIFER BRITNI [facility]11-21-2023 08:20-0500Respiratory rate16 /minJENNIFER BRITNI [facility]11-21-2023 08:20-0500Systolic blood tkwehofm183 mm[Hg]CLAIRE BRITNI [facility]11-16-2023 11:30-0500Body bawxer194.8 cmMagermania Mchugh Other [employer] Other 11-16-2023 11:30-0500Body mass index (BMI) [Ratio] 28.26 kg/r5RnayqkzJose Martin Mchugh Other [employer] Other 11-16-2023 11:30-0500Body hwixucmsqul36.8 [degF] Jose Martin Mchugh Other [place] [employer] Other 11-16-2023 11:30-0500Body sorvbu05.36 kgJose Martin Mchugh Other [place] [employer] Other 11-16-2023 11:30-0500Diastolic blood teksmxik16 mm[Hg] Jose Martin Mchugh Other [place] [employer] Other 11-16-2023 11:30-3221VzE1% (BldA) [Mass fraction]97 % Jose Martin Mchugh Other [place] [employer] Other 11-16-2023 11:30-0500Systolic blood dsvuczuy272 mm[Hg] Jose Martin Mchugh Other [place] [employer] Other 10-23-2023 12:55-0400Diastolic blood qlsejxgk02 mm[Hg] MD Shaikh Storm Work Phone: [facility]10-23-2023 12:55-0400 Heart rate54 /minMD Shaikh Storm Work Phone: [facility]10-23-2023 12:55-0400 Respiratory rate16 /minMD Shaikh Storm Work Phone: [facility]10-23-2023 12:55-0400 SaO2% (BldA) [Mass fraction]95 %MD Shaikh Storm Work Phone: [facility]10-23-2023 12:55-0400 Systolic blood veixjnzf471 mm[Hg]MD Shaikh Storm Work Phone: [facility]10-23-2023 09:48-0400 Inhaled oxygen flow rate4 L/minMD Shaikh Storm Work Phone: [facility]10-23-2023 07:22-0400 Body jvuouc822.8 cmMD Shaikh Storm Work Phone: [facility]10-23-2023 07:22-0400 Body gaposk94.35 kgMD Shaikh Storm Work Phone: [facility]10-12-2023 08:30-0400 Body ujijsz876.8 cmMattblanquita Mchugh Other [place] Other 10-12-2023 08:30-0400Body mass index (BMI) [Ratio] 28.26 kg/u4AdiriuyJose Martin Mchugh Other [place] Other 10-12-2023 08:30-0400Body .5 [degF] Jose Martin Mchugh Other [place] Other 10-12-2023 08:30-0400Body izwlfe65.36 kgMagermania Mchugh Other [place] Other 10-12-2023 08:30-0400Diastolic blood figkzuur26 mm[Hg] Jose Martin Mchugh Other [employer] Other 10-12-2023 08:30-5449CpW9% (BldA) [Mass fraction]97 % Jose Martin Mchugh Other [facility] Other 10-12-2023 08:30-0400Systolic blood wviwmdhb488 mm[Hg] Jose Martin Mchugh Other [place] [employer] Other 09-22-2023 11:15-0400Diastolic blood mlhcamsi42 mm[Hg] MD Shaikh Storm Work Phone: 1(991)702-[address] [place], [place] [address]673809-22-2023 11:15-0400 Heart rate45 /minMD Shaikh Storm Work Phone: 1(450)824-[address] [place], [place] 9673809-22-2023 11:15-0400 Respiratory rate18 /minMD Shaikh Storm Work Phone: 1(082)849-[address] [place], [place] [address]9-22-2023 11:15-0400 SaO2% (BldA) [Mass fraction]95 %MD Shaikh Storm Work Phone: 1(853)[address]09-22-2023 11:15-0400 Systolic blood axfmvuxn596 mm[Hg]MD Shaikh Storm Work Phone: 1(653)[address]09-22-2023 11:07-0400 Body fwutwu740.8 cmMD Shaikh Storm Work Phone: 1(640)[address]09-22-2023 11:07-0400 Body mass index (BMI) [Ratio]29 kg/m2MD Shaikh Storm Work Phone: 1(316)[address]09-22-2023 11:07-0400 Body kmsusr26 kgMD Shaikh Storm Work Phone: 1(383)126-[address] [place], [place] [address]9-22-2023 07:53-0400 Body walxghzlnor05 [degF]MD Shaikh Storm Work Phone: 1(152)819-[address] [place], [place] [address]67[address]9-20-2023 11:30-0400 Body duppmg239.8 cmBonnie Tan Other [facility] [employer] Other 09-20-2023 11:30-0400Body mass index (BMI) [Ratio] 29.12 kg/b0CrthraBonnie Tan Other [place] [employer] Other 09-20-2023 11:30-0400Body ybagsaiozme40.8 [degF]Bonnie Tan Other [place] [employer] Other 09-20-2023 11:30-0400Body .08 kgJaric Tan Other [place] [employer] Other 09-20-2023 11:30-0400Diastolic blood vajtorma16 mm[Hg] Bonnie Johnfilipeyaneli Other [employer] Other 09-20-2023 11:30-5199ZnE5% (BldA) [Mass fraction]97 % Bonnie Tan Other [place] [employer] Other 09-20-2023 11:30-0400Systolic blood pekninwp151 mm[Hg] Bonnie Tan Other [place] [employer] Other 09-13-2023 14:48-0400Blood Pressure LocationJENNIFER BRITNI [facility]09-13-2023 14:48-0400Diastolic blood byfyltga49 mm[Hg]CLAIRE BRITNI [facility]09-13-2023 14:48-0400Heart rate80 /minJENNIFER BRITNI [facility]09-13-2023 14:48-0400Respiratory rate16 /minJENNIFER BRITNI [facility]09-13-2023 14:48-0400Systolic blood szycbpyb663 mm[Hg]CLAIRE BRITNI [facility]08-21-2023 13:04-0400Body ahqfya41.63 kgPhijessie Nichols DO Work Phone: [facility]08-21-2023 13:04-0400Diastolic blood zjvdrxyv19 mm[Hg]Jose Nichols DO Work Phone: [facility]08-21-2023 13:04-0400Heart rate48 /min Jose Nichols DO Work Phone: [facility]08-21-2023 13:04-0400Systolic blood xhzyyjqb014 mm[Hg]Jose Nichols DO Work Phone: [facility]07-05-2023 14:57-0400Blood Pressure LocationJENNIFER BRITNI [facility]07-05-2023 14:57-0400Diastolic blood igaqnptn63 mm[Hg]CLAIRE BRITNI [facility]07-05-2023 14:57-0400Heart rate69 /minJENNIFER BRITNI [facility]07-05-2023 14:57-0400Respiratory rate16 /minJENNIFER BRITNI [facility]07-05-2023 14:57-0400Systolic blood ozcjzfag331 mm[Hg]CLAIRE BRITNI [facility]06-20-2023 13:29-0400Body knzulfxxvng84.71 [degF]PRASHANTH Nazario MD Work Phone: [facility]06-20-2023 13:29-0400Body .53 kgPRASHANTH Nazario MD Work Phone: [facility]06-20-2023 13:29-0400Diastolic blood mm[Hg]PRASHANTH Nazario MD Work Phone: [facility]06-20-2023 13:29-0400Heart rate56 /min PRASHANTH Nazario MD Work Phone: [facility]06-20-2023 13:29-0400Respiratory rate 18 /AmberPRASHANTH Nazario MD Work Phone: [facility]06-20-2023 13:29-8797CnN6% (BldA) [Mass fraction]96 %PRASHANTH Nazario MD Work Phone: [facility]06-20-2023 13:29-0400Systolic blood ppmhuihg054 mm[Hg]PRASHANTH Nazario MD Work Phone: [facility]11-21-2022 15:30-0500Body temperature 96.69 [degF]PRASHANTH Nazario MD Work Phone: [facility]11-21-2022 15:30-0500Body jaijio78.71 kgPRASHANTH Nazario MD Work Phone: [facility]11-21-2022 15:30-0500Diastolic blood sjywegmg29 mm[Hg]PRASHANTH Nazario MD Work Phone: [facility]11-21-2022 15:30-0500Heart rate58 /min PRASHANTH Nazario MD Work Phone: [facility]11-21-2022 15:30-0500Respiratory rate 18 /AmberPRASHANTH Nazario MD Work Phone: [facility]11-21-2022 15:30-2645FqG0% (BldA) [Mass fraction]98 %PRASHANTH Nazario MD Work Phone: [facility]11-21-2022 15:30-0500Systolic blood usuwteus321 mm[Hg]PRASHANTH Nazario MD Work Phone: [place] [address]-14-2022 15:04-0500Body temperature 97.59 [degF]PRASHANTH Nazario MD Work Phone: 1(513)852-41[place] [address]-14-2022 15:04-0500Body tkvqeg50.44 kgPRASHANTH Nazario MD Work Phone: [facility]11-14-2022 15:04-0500Diastolic blood xhfgmafy51 mm[Hg]PRASHANTH Nazario MD Work Phone: 1(437)277-30[facility]11-14-2022 15:04-0500Heart rate64 /min PRASHANTH Nazario MD Work Phone: 1(271)[address] [place] [address]-14-2022 15:04-0500Respiratory rate 16 /AmberPRASHANTH Nazario MD Work Phone: 1(835)459-[address] [place], [place] [address]11-14-2022 15:04-1461IaB8% (BldA) [Mass fraction]97 %PRASHANTH Nazario MD Work Phone: 1(155)243-08[place] [address]-14-2022 15:04-0500Systolic blood swpjzowa297 mm[Hg]PRASHANTH Nazario MD Work Phone: [facility]11-07-2022 11:01-0500Body temperature 97.39 [degF]PRASHANTH Nazario MD Work Phone: [facility]11-07-2022 11:01-0500Body .35 kgPRASHANTH Nazario MD Work Phone: [facility]11-07-2022 11:01-0500Diastolic blood hmorgeho87 mm[Hg]PRASHANTH Nazario MD Work Phone: 1([phone]11-07-2022 11:01-0500Heart rate55 /min PRASHANTH Nazario MD Work Phone: [place] [address]-07-2022 11:01-0500Respiratory rate 18 /AmberPRASHANTH Nazario MD Work Phone: [facility]11-07-2022 11:01-4935TyK6% (BldA) [Mass fraction]98 %PRASHANTH Nazario MD Work Phone: [facility]11-07-2022 11:01-0500Systolic blood zxcyhdhj340 mm[Hg]PRASHANTH Nazario MD Work Phone: [facility]10-31-2022 15:33-0400Body temperature 96.69 [degF]PRASHANTH Nazario MD Work Phone: [facility]10-31-2022 15:33-0400Body uzmvbi24.8 kgPRASHANTH Nazario MD Work Phone: [facility]10-31-2022 15:33-0400Diastolic blood wwespdve51 mm[Hg]PRASHANTH Nazario MD Work Phone: [facility]10-31-2022 15:33-0400Heart rate54 /min PRASHANTH Nazario MD Work Phone: [facility]10-31-2022 15:33-0400Respiratory rate 18 /AmberPRASHANTH Nazario MD Work Phone: [facility]10-31-2022 15:33-2336LvR5% (BldA) [Mass fraction]97 %PRASHANTH Nazario MD Work Phone: [facility]10-31-2022 15:33-0400Systolic blood iutyldny933 mm[Hg]PRASHANTH Nazario MD Work Phone: [facility]10-24-2022 16:03-0400Body temperature 98.01 [degF]PRASHANTH Nazario MD Work Phone: [facility]10-24-2022 16:03-0400Body xhoevi94.44 kgPRASHANTH Nazario MD Work Phone: [facility]10-24-2022 16:03-0400Diastolic blood kyjrvaxa25 mm[Hg]PRASHANTH Nazario MD Work Phone: [facility]10-24-2022 16:03-0400Heart rate50 /min PRASHANTH Nazario MD Work Phone: [facility]10-24-2022 16:03-0400Respiratory rate 16 /AmberPRASHANTH Nazario MD Work Phone: [facility]10-24-2022 16:03-1768CnA4% (BldA) [Mass fraction]100 %PRASHANTH Nazario MD Work Phone: [facility]10-24-2022 16:03-0400Systolic blood qemngowg720 mm[Hg]PRASHANTH Nazario MD Work Phone: [facility]10-18-2022 11:52-0400Body temperature 97.9 [degF]PRASHANTH Nazario MD Work Phone: [facility]10-18-2022 11:52-0400Body .44 kgNA Luz Marina MAK Work Phone: [facility]10-18-2022 11:52-0400Diastolic blood orlcvaiq18 mm[Hg]PRASHANTH Nazario MD Work Phone: [facility]10-18-2022 11:52-0400Heart rate56 /min PRASHANTH Nazario MD Work Phone: [facility]10-18-2022 11:52-0400Respiratory rate 16 /AmberPRASHANTH Nazario MD Work Phone: [facility]10-18-2022 11:52-2430CpG8% (BldA) [Mass fraction]96 %PRASHANTH Nazario MD Work Phone: [facility]10-18-2022 11:52-0400Systolic blood ctvabolv047 mm[Hg]PRASHANTH Nazario MD Work Phone: [facility]07-12-2022 09:19-0400Body lonzqa367.9 cmPRASHANTH Nazario MD Work Phone: [facility]07-12-2022 09:19-0400Body temperature 98.71 [degF]PRASHANTH Nazario MD Work Phone: [facility]07-12-2022 09:19-0400Body .35 kgPRASHANTH Nazario MD Work Phone: [facility]07-12-2022 09:19-0400Diastolic blood vzqpueks20 mm[Hg]PRASHANTH Nazario MD Work Phone: [facility]07-12-2022 09:19-0400Heart rate51 /min PRASHANTH Nazario MD Work Phone: [facility]07-12-2022 09:19-0400Respiratory rate 16 /AmberPRASHANTH Nazario MD Work Phone: [facility]07-12-2022 09:19-2839PzK7% (BldA) [Mass fraction]97 %PRASHANTH Nazario MD Work Phone: [facility]07-12-2022 09:19-0400Systolic blood oihadmdg531 mm[Hg]PRASHANTH Nazario MD Work Phone: [facility]06-06-2022 09:48-0400Blood Pressure LocationBarbara JOHNSTON [facility] 06-06-2022 09:48-0400Diastolic blood eqxpwcww46 mm[Hg] Barbara JOHNSTON [facility] 06-06-2022 09:48-0400Heart rate52 /minBarbara JOHNSTON [facility] 06-06-2022 09:48-0400Systolic blood tygaxbnv302 mm[Hg] Barbara JOHNSTON [facility] 05-26-2022 16:40-0400Body .8 cmAbdul Vivian Other [employer] Other 05-26-2022 16:40-0400Body mass index (BMI) [Ratio] 29.01 kg/o8Gjiox Vivian Other [facility] [facility] [employer] Other 05-26-2022 16:40-0400Body sxnclsuwhey36 [degF]Theo Vivian Other [facility] [employer] Other 05-26-2022 16:40-0400Body hobhbl42.72 kgAbdul Vivian Other [facility] [employer] Other 05-26-2022 16:40-0400Diastolic blood nhvoiqha01 mm[Hg] Theo Vivian Other [facility] [employer] Other 05-26-2022 16:40-0400Respiratory rate18 /minAbdul Vivian Other [employer] Other 05-26-2022 16:40-5153KgZ3% (BldA) [Mass fraction]96 % Theo Vivian Other [facility] [employer] Other 05-26-2022 16:40-0400Systolic blood nhnqqiud671 mm[Hg] Theo Vivian Other [employer] Other Encounters Encounter DateEncounter TypeCare ProviderFacilityStart: 04-03-2025 End: 14-00-7321okszpbjgwuCcjlgog R WATERSFacility:TRISTIN BellevueStart: 04-03-2025 End: 85-93-5784Rudgwon encounter procedurePaharoldo JOHNSTON [facility] start: 03-29-2025 End: 18-64-3483bfszpiahcxKwnsjay R WATERSFacility:EU [facility] OhioueStart: 03-29-2025 End: 33-75-6694Qzedbkm encounter procedureBarbara JOHNSTON [facility] start: 03-23-2025 End: 39-38-9778ldksaonevxGjvm Naderer MD Work Phone: [facility]: 03-23-2025 End: 13-01-3405Nqsyhhkt ReferredBarbara Johnston MD-[facility] Start: 03-23-2025 End: 86-52-0124wgmpckdukxJbefibn R WATERSFacility:CD:[id number]: 03-15-2025 [facility]: 03-14-2025 End: 78-22-5982kuewpnrvipEked Naderer MD Work Phone: [facility] Work Phone: Start: 03-14-2025 End: 53-55-9092Ymebonz encounter procedureJebradley Nuñez DO-[facility] Medicine Rene Work Phone: Start: 74-10-0645Rmh-patient / Non-visitBarbara Johnston MD-[facility] Work Phone: Start: 03-07-2025 End: 95-45-1290xdwdhcuwiwWesoolg R WATERSFacility:[facility]OSPITALtart: 08-86-7225Uwq- patient / Non-visitBarbara Johnston MD-[facility] Work Phone: Start: 03-01-2025 End: 34-13-8493rwwulvfsrtHISQIOhioHealth [facility] Start: 02-21-2025 End: 05-00-1608Egpdzhljm Result EncounterGeneric External Data ProviderNOMS External Department UnsolicitedStart: 02-21-2025 End: 38-24-2397Bpfeddjrt Result EncounterGeneric External Data ProviderNOMS External Department UnsolicitedStart: 02-20-2025 End: 62-68-1908yhmaqjbcvzTcoy Naderer MD Work Phone: [facility] Work Phone: Start: 02-20-2025 End: 74-75-5853Zvotnot encounter procedureTheo Thakkar MD-[facility] Work Phone: Start: 02-13-2025 End: 26-96-4220Frzorfirm Result EncounterGeneric External Data ProviderNOMS External Department UnsolicitedStart: 02-13-2025 End: 38-38-8504Thvdsgssn Result EncounterGeneric External Data ProviderNOMS External Department UnsolicitedStart: 70-88-5688Kwz-patient / Non-visitTheo Thakkar MD-[facility] Work Phone: Start: 01-18-2025 End: 37-33-7476Swqfxp outpatient visit 15 minutesG Jose Nazario MD Work Phone: Radiation OncologyComment on above:Cancer of prostate w/med recur risk (T2b-c or [place] 7 or PSA 10-20) (HCC) (Primary Dx)Start: 01-18-2025 End: 00-85-3677stpxbunybeTPacnho [place] GARZAacility:[facility] Start: 01-12-2025 End: 54-47-5243Ropcnqprm Result EncounterGeneric External Data ProviderNOMS External Department UnsolicitedStart: 01-12-2025 End: 99-11-7760Vpnouwwke Result EncounterGeneric External Data ProviderNOMS External Department UnsolicitedStart: 01-12-2025 End: 85-11-5620wpmjbocgmgLPancho [place] GARZAacility:[facility] [facility] Start: 09-12-2024 End: 28-16-2378IfiaqbBaie Naderer MD Work Phone: [facility] FMComment on above:Primary hypertension ([facility]/HCC)Start: 08-30-2024 End: 11-61-0953hegurrkleqOGHUT K [facility] CenterStart: 08-30-2024 End: 00-56-2087Wnrvyl outpatient visit 15 minutesJose Hector SCALE ADJUSTER-TELEPHONE QUOTATION CLERK Work Phone: FirelandsComment on above:Mixed hyperlipidemia (Primary Dx); Bilateral carotid artery disease, unspecified type; Hypertension, unspecified type; BMI 28.0-28.9,adult; Smoker; Prostate cancer (Multi); Chronic kidney disease, stage 3b (Multi); ASHD (arteriosclerotic heart disease); PVD (peripheral vascular disease) ([facility]-HCC)Start: 08-29-2024 End: 11-52-9833zgtakyswksXPCERDYQ E PERRYFacility:FTMCStart: 08-29-2024 End: 14-64-1044Rpw Drop offJENNIFER E BRITNI [facility] Start: 08-29-2024 End: 85-19-9905qmsspjcioaGAXPTFEX E PERRYFacility:EU BellevueStart: 08-22-2024 End: 58-20-5441saiakwekuyDvpwdc X OrzechFacility:FTMCStart: 08-22-2024 End: 78-13-3971Efn Drop offAurora X Orzech [facility] Start: 08-22-2024 End: 97-61-1374jjmeblskpmFeqvjei R WATERSFacility:EU BellevueStart: 08-18-2024 End: 47-41-0865lepkuorwtgLLTYSWJ [facility]tart: 08-15-2024 End: 01-60-0829zjuzttaafwShto Naderer MD Work Phone: [facility] Work Phone: Start: 08-15-2024 End: 63-91-7631Qijdojo encounter procedureBrian Avalos MD Work Phone: [facility] Work Phone: Start: 08-10-2024 End: 11-05-7097Waojzvz encounter procedureBrian Avalos MD Work Phone: [facility] C[facility]-Lab Main [place] Work Phone: Start: 08-10-2024 End: 92-35-2608wuhnzrreexIohh Naderer MD Work Phone: [facility] Work Phone: Start: 08-08-2024 End: 82-57-5207Gts Drop offJENNIFER E BRITNI [facility] Start: 08-08-2024 End: 92-17-2195gkyduylqxqFIDQEUQO E PERRYFacility:FTMCStart: 07-14-2024 End: 58-21-2914Hsgdklhlu department patient visitBrian Avalos MD Work Phone: [facility] C[facility]-Emergency Room Work Phone: Start: 07-13-2024 End: 73-55-7270Obqnye flowsheetBrtariq Duttonk RECEIVING CLERK Work Phone: noms CWM FMStart: 07-13-2024 End: 80-17-1226Jythsq flowsheetBrtariq Lopeztrick RECEIVING CLERK Work Phone: noms CWM FMStart: 07-13-2024 End: 29-21-3530Eolsrl outpatient visit 15 minutesBrtariq Duttonk RECEIVING CLERK Work Phone: NOHO CWM FMComment on above:Stage 3a chronic kidney disease (HCC) (CMS/HCC) (Primary Dx); Lumbar stenosis with neurogenic claudication; Mixed hyperlipidemia (CMS/HCC); Primary hypertension (CMS/HCC)Start: 07-13-2024 End: 42-88-3645tmcflxelxiOZQMXLRJ FITZPATRICKNot AvailableStart: 04-21-2024 End: 85-24-1205Sorftf flowsheetBrittany Ward RECEIVING CLERK Work Phone: noms CWM FMStart: 04-21-2024 End: 72-75-8982Blsggy flowsheetBrittany Ward RECEIVING CLERK Work Phone: noms CWM FMStart: 04-21-2024 End: 40-67-8076Rnzufj outpatient visit 15 minutesBrittany Ward RECEIVING CLERK Work Phone: noms CWM FMComment on above:Mixed hyperlipidemia (CMS/HCC) (Primary Dx); Primary hypertension (CMS/HCC); Stage 3a chronic kidney disease (HCC) (CMS/HCC)Start: 04-21-2024 End: 19-19-3378kokxipugvsMUGBPSUV FITZPATRICKNot AvailableStart: 04-18-2024 End: 52-25-6913hgsfsaaqrqZsglpjw R WATERSFacility:EU ueStart: 04-18-2024 End: 04-15-8137Rwhzxro encounter procedureBarbara JOHNSTON [facility] start: 04-07-2024 End: 26-24-4889Ges Drop offKarime Gunderson [facility] Start: 04-07-2024 End: 21-64-1756xaiozvyraxXjtouk J GaleaFacility:FTMCStart: 04-07-2024 End: 42-75-3805Lytugav encounter procedureAlysbakari Gunderson [facility] start: 02-29-2024 End: 67-06-9174qzedtkrvnuORKEMGTAG NO [facility] Work Phone: Start: 02-29-2024 End: 56-30-9198Vjdsqtx encounter procedurePHYSICIAN NO [facility] Nephrology [place] Work Phone: Start: 02-25-2024 End: 72-86-1780jhtgntfpsdYORTKMIZY NO [facility] Work Phone: Start: 02-25-2024 End: 70-82-0395Aetxzqs encounter procedurePHYSICIAN NO [facility]-Lab Main [place] Work Phone: Start: 02-18-2024 End: 91-13-6811SmuxkpYultjc [place] MANOMS CWM FMComment on above:Primary hypertension (CMS/HCC)Start: 02-02-2024 End: 59-07-3873EhmfryZrczau [place] MANOMS CWM IMComment on above:Primary hypertension (CMS/HCC)Start: 01-20-2024 End: 25-47-3371Enbtko outpatient visit 25 minutesBrtariq Duttonk RECEIVING CLERK Work Phone: noms CWM FMComment on above:Primary hypertension (CMS/HCC) (Primary Dx); Coronary artery disease involving [place] coronary artery of [place] heart without angina pectoris (CMS/HCC); Stage 3a chronic kidney disease (HCC) (CMS/HCC); Gastroesophageal reflux disease without esophagitis; Tobacco abuse; Prostate cancer (CMS/HCC); Benign prostatic hyperplasia with lower urinary tract symptoms, symptom details unspecifiedStart: 01-20-2024 End: 04-37-0393kpcpxgornmWQSILCZB FITZPATRICKNot AvailableStart: 01-20-2024 End: 38-88-3156Khkdjd flowsheetBrittany Ward RECEIVING CLERK Work Phone: noms CWM FMStart: 01-20-2024 End: 37-33-6331Ntxipy flowsheetBrittany Ward RECEIVING CLERK Work Phone: noms CWM FMStart: 12-15-2023 End: 18-38-3471Pclwkij encounter procedureG Jose Nazario MD Work Phone: Radiation OncologyComment on above:Prostate cancer (HCC) (Primary Dx); Stage 3 chronic kidney disease, unspecified whether stage 3a or 3b CKD (HCC) Start: 12-08-2023 End: 86-79-3455mqwqygsbkcTWGDAW FAWWADNot AvailableStart: 10-15-2023 End: 46-77-2468Okyvwvo encounter procedureMD Dotty Work Phone: [facility] Vascular Surgery Work Phone: Start: 10-01-2023 End: 11-33-5954gtvwxlckgyLX Dotty Work Phone: [facility] Work Phone: Start: 10-01-2023 End: 48-00-4013Zidivzn encounter procedureMD Shaikh Shubhamkaushik Work Phone: [facility] C[facility]-Lab Main [place] Work Phone: Start: 09-28-2023 End: 66-80-1645mubrxdiwoqOGCIBY FAWWADNot AvailableStart: 09-18-2023 End: 64-84-0021vndxzybqluHydzrsf R WATERSFacility:EU BellevueStart: 09-18-2023 End: 07-80-1202Vxgsmzk encounter procedurePaharoldo JOHNSTON [facility] start: 90-10-4183Tdg-patient / Non-visit Carreongeri Storm Work Phone: [facility] Work Phone: Start: 08-18-2023 End: 19-71-6502Caerfz outpatient visit 25 minutesChaim Grayson DO Work Phone: uh [facility] HealthComment on above:Hypertension, unspecified type; Mixed hyperlipidemia; Bilateral carotid artery disease, unspecified type (CMS/HCC); History of PR (myocardial infarction); BMI 28.0-28.9,adult; ASHD (arteriosclerotic heart disease); PVD (peripheral vascular disease) ([facility]/HCC); Smoker; Chest pain, unspecified typeStart: 08-10-2023 End: 38-29-0669iklnqyyoygEzmmatwAdalid Will MDFacility:PM [place]yer Start: 07-07-2023 End: 44-97-2048zdmxqeuejqXFWHXBQL E PERRYFacility:FTMCStart: 06-18-2023 End: 60-32-6099bqgugsbfufKHEZPUT S SHELDONCleveland Clinic Mercy Hospitaltart: 06-18-2023 End: 34-20-6264Rmnwjopcn Result EncounterGeneric External Data ProviderNOMS External Department UnsolicitedStart: 06-18-2023 End: 91-58-5745Lcaiskjrh Result EncounterGeneric External Data ProviderNOMS External Department UnsolicitedStart: 06-18-2023 End: 52-97-7221Oyuhwvzytx hospital visit by Mimi Jama [facility]Start: 06-12-2023 End: 35-25-7874bdoeqebgngHTABVFB G MENDISFacility:[facility] Street Hospitaltart: 06-12-2023 End: 31-64-1524Qijbjg outpatient new 45 minutesBilal Conor Reynolds MD Work Phone: [facility] Wayne InstituteComment on above:Spondylolisthesis of lumbar region (Primary Dx)Start: 06-04-2023 End: 97-59-4122Ndowns consultation new/estab patient [address] [facility] [address] Grayson DO Work Phone: uh [facility] HealthComment on above:Hypertension, unspecified type; Stage 3 chronic kidney disease, unspecified whether stage 3a or 3b CKD (CMS/HCC); Mixed hyperlipidemia; Bilateral carotid artery disease, unspecified type (CMS/HCC); Smoker; Chest pressureStart: 05-21-2023 End: 90-75-5402cwwejvnginYG Shaikh Fawwad Work Phone: [facility] Work Phone: Start: 05-21-2023 End: 95-85-7036Owwmepq encounter procedureMD Shaikh Dotty Work Phone: [facility] Ctr-Electrodiagnostics Work Phone: Start: 35-32-1050Sfhfiwxrz encounterG Jose Nazario MD Work Phone: Cancer Appts MCComment on above:Appointment ConfirmationStart: 76-96-3938dmyaiupsygBkqcxcn Genoveva Nichols DO Work Phone: [facility] FHCStart: 13-70-7202Xdkgded encounter procedurePhillip Genoveva Mendgentry DO Work Phone: Spqbb MedicineComment on above:Consultation with a surgeonStart: 04-21-2023 End: 21-94-4027exerpaydqtILZFLJJA E PERRYFacility:FTMCStart: 04-21-2023 End: 54-06-9658Qgg Drop offJENNIFER E BRITNI [facility] Start: 04-21-2023 End: 06-79-2020Yatmbwn encounter procedureJENNIFER E BRITNI [facility] start: 30-67-1551Krxkwp outpatient visit 15 minutes Jose Martin Mena Vascular SurgeryStart: 04-16-2023 End: 24-44-3123rhwrhylxsaZC Shaikh Donaldbooker Work Phone: [place] [employer] Other Start: 04-16-2023 End: 36-07-8360Esdgvmk encounter procedureMD Shaikh Storm Work Phone: [facility] Ctr-Ultrasound [facility] VascularStart: 03-23-2023 End: 37-77-9889Vkjezfkff to same day surgery center Shubhamstaciagage Work Phone: [facility] C[facility]-Interventional Radiology Work Phone: Start: 03-23-2023 End: 41-70-5552lyymbxtwskTN Shaikh Donaldbooker Work Phone: [facility] C[facility] Work Phone: Start: 03-12-2023 End: 16-33-9055ymzwgkwntyBzaiuke Langenberg Other [place] [employer] Other Start: 82-54-5853Xwodri outpatient visit 25 minutes Jose Martin Mena Vascular SurgeryStart: 43-38-4279Ksrzctizg encounterAbdbalta Henning NephrologyStart: 03-09-2023 End: 91-43-5110cxlxskihiwIM Shaikh Donaldbooker Work Phone: [facility] Work Phone: Start: 03-09-2023 End: 89-45-0242Bpdytjk encounter procedureMD Shaikh Donaldbooker Work Phone: [facility] C[facility]-Lab Main [place] Work Phone: Start: 03-05-2023 End: 10-36-6882ohckugsbntAA Shaikh Donaldbooker Work Phone: [facility] Work Phone: Start: 03-05-2023 End: 68-76-8947Ukpweha encounter procedureMD Shaikh Donaldbooker Work Phone: [facility] Ctr-Ultrasound Main [place] Work Phone: Start: 03-04-2023 End: 83-10-3254mkyesvmnttJR Shaikh Donaldbooker Work Phone: [facility] Work Phone: Start: 03-04-2023 End: 44-37-7744Varapxc encounter procedureMD Shaikh Dotty Work Phone: [facility] Ctr-Ultrasound [place] Work Phone: Start: 02-20-2023 End: 44-60-5475Dhlnblvdx to same day surgery centerMD Shaikh Storm Work Phone: [facility] Ctr-Surgery Center Main CampusStart: 02-18-2023 End: 30-69-8108zmbdjqehgzFmslkd Ruttino Other [facility] [employer] Other Start: 12-73-2848Kzshfk outpatient new 60 minutes Bonnie Moyer Vascular SurgeryStart: 02-11-2023 End: 68-44-2602Rkxwebf encounter procedureJEDANNI JAMES [facility] start: 02-06-2023 End: 19-41-6732dtkqcbrncbVR Shaikh Dotty Work Phone: [facility] Work Phone: Start: 02-06-2023 End: 84-66-4508Dbzoooyx ReferredMD Shaikh Storm Work Phone: [facility] Usd-Pft-Wgejyqwy Testing Work Phone: Start: 02-06-2023 End: 45-17-4114Munextk encounter procedureMD Shaikh Storm Work Phone: [facility] Rij-Qck-Uhqeldqs Testing Work Phone: Start: 28-57-7999Hzpvfkzfh encounterConstance BROWN Hematology/OncologyComment on above:Social Work ServicesStart: 01-19-2023 End: 17-64-7828Otovxvs encounter procedurePhijessie Genoveva Nichols DO Work Phone: Spine MedicineComment on above:Spinal stenosis, lumbar region with neurogenic claudication (Primary Dx); Foraminal stenosis of lumbar region; Peripheral artery disease (HCC); Prostate cancer (HCC)Start: 71-36-2016Bfevesquh encounterPhillfloyd Genoveva Nichols DO Work Phone: [phone] InstituteComment on above:Orders; AppointmentStart: 01-09-2023 End: 25-43-3102xdbhgqyzmeIH Shaikh Elainegage Work Phone: [facility] Work Phone: Start: 01-09-2023 End: 28-41-8808Jljwfxt encounter procedure Shaikh Donaldbooker Work Phone: [facility] Ctr-Lab Main [place] Work Phone: Start: 18-50-3198Izukrmpds encounterG Jose Nazario MD Work Phone: Radiation OncologyComment on above:OrdersStart: 97-79-5758Yyzytfwwc encounterMepina Chamberlain RNFV INTERVENTIONAL RADIOLOGYComment on above:Patient Question; AppointmentStart: 12-03-2022 End: 45-03-1206Bihfpyh encounter procedureCLAIRE JAMES [facility] start: 55-99-9921Tkpywthtd encounterGenoveva Nazario MD Work Phone: Cancer Appts MCComment on above:Referral Information Start: 11-18-2022 End: 80-33-1145vmixfqabpzJupdm Tani TRISTAN Work Phone: Hematology/OncologyComment on above:Prostate cancer (HCC); Stage 3 chronic kidney disease, unspecified whether stage 3a or 3b CKD (HCC) Start: 11-18-2022 End: 66-04-7992Ynvxfwc encounter procedureGenoveva Nazario MD Work Phone: Radiation OncologyComment on above:History of prostate cancer (Primary Dx); Spinal arthritis; Spinal stenosis of lumbar region, unspecified whether neurogenic claudication presentStart: 10-28-2022 End: 36-52-9936ahjlncbuanESQMVM Geri ELAINEWAMELONIEacility:B2Gjovf: 10-09-2022 End: 13-10-7518bzjmxzwvelXADEFLGZKUZQ LAKSHMIPATHY .Facility:U4Dmulo: 07-15-2022 ambulatoryGEORGE MOUKARBELFacility:I4Sgedd: 01-50-7497Jyjuezsns encounterLori Ladarius LSWHematology/OncologyComment on above:Social Work ServicesStart: 06-05-2022 End: 64-03-3803Ambwhtl encounter procedureLab/[place] Donnie Jama Work Phone: Radiation OncologyComment on above:Urinary tract infection without hematuria, site unspecified (Primary Dx)Start: 05-15-2022 Telephone encounterG Jose Nazario MD Work Phone: Radiation OncologyComment on above:Results; AppointmentStart: 05-15-2022 End: 33-43-1276rqdppaxxpkOM HOSEA OLIVA .Facility:K2Ixgiw: 05-09-2022 End: 92-71-0690cimpxvxbxuTU Shaikh Fawwad Work Phone: [facility] Work Phone: Start: 05-09-2022 End: 85-15-5934Kbrrhnv encounter procedureMD Shaikh Storm Work Phone: [facility] Ctr-Lab Main CampusStart: 80-11-6436Aowobm WorkLori Ladarius BARAJASematology/OncologyStart: 04-23-2022 End: 99-91-7556mhletjqfdmAMMireya Storm Work Phone: [facility] Work Phone: Start: 04-23-2022 End: 74-37-0928Qqkbvog encounter procedureMD Shaikh Dotty Work Phone: [facility]-Lab Main CampusStart: 43-42-8296Zframzrdx Oncology NoteG Jose Nazario MD Work Phone: Radiation OncologyComment on above:Completion Note Start: 04-21-2022 End: 61-52-4336Bhebwya encounter procedureG Jose Nazario MD Work Phone: Radiation OncologyComment on above:Malignant neoplasm of prostate (HCC) (Primary Dx)Start: 04-14-2022 End: 13-00-3634Dyhjhbj encounter procedureGenoveva Nazario MD Work Phone: Radiation OncologyComment on above:Malignant neoplasm of prostate (HCC) (Primary Dx)Start: 04-07-2022 End: 71-21-0659Wddzbxm encounter procedureGenoveva Nazario MD Work Phone: Radiation OncologyComment on above:Malignant neoplasm of prostate (HCC) (Primary Dx)Start: 03-31-2022 End: 76-42-1719Yltdha WorkLori Ladarius BROOKSWHematology/OncologyComment on above: Malignant neoplasm of prostate (HCC) (Primary Dx)Start: 03-27-2022 End: 67-78-1805Dxbjyyp encounter procedureLab/Bernice Jama Work Phone: Radiation OncologyComment on above:Malignant neoplasm of prostate (HCC)Start: 03-24-2022 End: 80-73-0409Rmvjsuv encounter procedureGenoveva Nazario MD Work Phone: Radiation OncologyComment on above:Malignant neoplasm of prostate (HCC) (Primary Dx)Start: 37-18-9796Kbzdtlvxf encounterGenoveva Nazario MD Work Phone: Radiation OncologyComment on above:OrdersStart: 03-18-2022 End: 74-55-6039Ldiupiz encounter procedureGenoveva Nazario MD Work Phone: Radiation OncologyComment on above:Malignant neoplasm of prostate (HCC) (Primary Dx)Start: 03-13-2022 End: 23-79-8434cxpidjlkvcCO HOSEA S OLIVA .Facility:U7Fqtbh: 01-15-1890Anuaxtx encounter procedureGenoveva Nazario MD Work Phone: SANDUSKYStart: 66-04-1581Rlicovbuq Oncology NoteG Jose Nazario MD Work Phone: Radiation OncologyComment on above:Treatment Planning Start: 03-12-2022 End: 31-19-6097Njlgvo WorkLori Ladarius LSWHematology/OncologyStart: 03-04-2022 Telephone encounterLori Ladarius LSWHematology/OncologyComment on above:Social Work ServicesStart: 03-03-2022 End: 74-60-8233Dcpxuch encounter procedureG Jose Nazario MD Work Phone: Radiation OncologyComment on above:Malignant neoplasm of prostate (HCC) (Primary Dx)Start: 25-57-7408Kzyihbqvn encounterG Jose Nazario MD Work Phone: Radiation OncologyComment on above:Patient Update; AppointmentStart: 97-38-7158hutnjaqslgHbfoialo:05430Euzlw: 02-13-2022 End: 44-55-7609Dbgehbb encounter procedureZeinab Justice [facility] Start: 02-11-2022 End: 26-48-9363hhntcflgpeAD HOSEA S OLIVA .Facility:Y9Jkmmi: 65-00-4898Momvirlsl for preprocedural laboratory examinationDR HOSEA S OLIVA .[facility] Start: 64-20-6172Egiujbtqt encounterG Jose Nazario MD Work Phone: Radiation OncologyComment on above:Patient Update Start: 02-07-2022 End: 56-08-4046cmuveuyawqGP HOSEA S OLIVA .Facility:F9Qvvdj: 02-07-2022 End: 60-36-6053Jvymywlkl for preprocedural laboratory examinationDR HOSEA S OLIVA .Facility:O6Tjaby: 89-40-6880evnvvgmushFF HOSEA OLIVA .Facility:K9Tlmnh: 01-30-2022 End: 52-84-2569eeibzyrfcvUCFXH QADIRFacility:Q7Ovmhi: 01-23-2022 End: 49-31-7048xjaglnglkrDXTC SOLIS .Facility:F4Oeeqf: 01-07-2022 End: 99-95-9738xfrxxshpfyYJ HSOEA OLIVA .Facility:F8Mfsfv: 12-26-2021 End: 27-30-4526gibpwitclxHYMX SOLIS .Facility:I6Aunvy: 88-17-9356Kpgtovovi encounterG Jose Nazario MD Work Phone: Radiation OncologyComment on above:Patient Update Start: 12-17-2021 End: 04-74-6547biacrqurftZK HOSEA OLIVA .Facility:U2Fyild: 12-12-2021 End: 83-72-9127nhbyuptheyOOOP SOLIS .Facility:O8Phjpe: 12-10-2021 End: 60-53-3444Jxaylyx encounter procedureG Jose Nazario MD Work Phone: Radiation OncologyComment on above:Malignant neoplasm of prostate (HCC) (Primary Dx)Start: 11-04-2021 End: 81-36-7907Qtyydmq encounter procedureBarbara JOHNSTON [facility] start: 10-24-2021 End: 22-35-3840zzhngrudsvNpnwe Vivian Other [place] [employer] Other Start: 42-15-8685Qicxdz outpatient new 45 minutesAbdul QadirFPG Nephrology Rene Procedures DateProcedureProcedure DetailPerforming ClinicianStart: 35-20-5386Qsnthqyqufalq resection of bladder neoplasmBarbara JOHNSTON Start: 58-01-6956Mh lumbar spine w/o contrast material Generic External Data ProviderStart: 37-24-6241HJJL CBC WITH PLATELET NO DIFFERENTIALGeneric External Data ProviderStart: 01-58-0657RZC PSA SERPL-MCNC Generic External Data ProviderStart: 88-93-0948Jcecgc-up visitFollow-upALLISON OVITTStart: 74-68-3784Apjmu cultureZuleykac Bailey MAK Work Phone: Start: 81-71-8805Phbdb culturePHYSICIAN NO FAMILY Start: 77-04-1962Mkkdnroib on backPatrick P4RC Start: 95-98-9117Hxr routine ecg w/least 12 lds w/i&r Chaim S Kenan [employer] Work Phone: Start: 42-88-3024MBIQYSM STRESS TESTWILLMARKIE GRAYSON Start: 03-07-3519Sn strs tst xers&/or rx cont ecg trcg onlyWillmarkie Grayson [employer] Work Phone: Start: 59-66-8150WFWMAOG STRESS TEST EXERCISE (CARD) Generic External Data ProviderStart: 97-30-6673Nka routine ecg w/least 12 lds w/i&rWilliam S Kenan ALBA Work Phone: Start: 28-54-9893Ogelj brachial pressure indexPR Shaikh Dotty Work Phone: Start: 95-39-4146Nmpvi limb angiographyPR Shaikh Dotty Work Phone: Start: 91-37-3278Fjobh culturePR Shaikh Dotty Work Phone: Start: 08-16-3539Xegkw volume recorder plethysmography MD Shaikh Storm Work Phone: Start: 42-15-1936Zjmufoy ultrasonography of bilateral carotid arteriesPR Shaikh Dotty Work Phone: Start: 48-23-3204AZ pre/post mri xrayMD Shaikh Bennettbooker Work Phone: start: 04-51-0879AL CAT/MRI W/ IV SEDATION (Not Applicable)MD Shaikh Storm Work Phone: Start: 46-47-8552VRS of lumbar spine with contrastMD Shaikh Storm Work Phone: Start: 07-80-5379Gmwyk beam external beam radiation therapyCLAIRE JAMES Start: 61-97-0540Opitv count complete auto&auto difrntl wbcG Jose Nazario MD Work Phone: Start: 56-21-7341Tezzxmeaupvyd prostatectomyI-MD Start: 89-71-4943Tjvnfzgsfrd biopsy of prostate using ultrasound guidanceChina Communications Services Corporation Start: 86-54-4389Twkctfartuqww cystoscopyPaPortapure Bilateral cataracts (disorder)CLAIRE JAMES ColonoscopyI-MD EndarterectomyCLAIRE JAMES Procedure on backChina Communications Services Corporation Plan of Treatment DateCare ActivityDetailAuthorStart: 13-63-7250Lmctbivd ScreeningDiabetes ScreeningDiley Ridge Medical Centertart: 59-04-7220Dpnvtyps ScreeningDiabetes Screening [facility] Centertart: 96-34-0453pyngxcnuraMqwoghzqmjKxrdcsyo:EU BellevueStart: 08-30-2025 End: 70-18-0954Tfegwng encounter fpzzwjhzo12/01/2026 10:00 AM EDT Office Visit [facility] [address] [place] [id number] Chaim Grayson, [address] [place] [address] [facility]: 04-20-2025 End: 25-89-7994Wcjpjrgg specific Ag [Mass/volume] in Serum or PlasmaPROSTATE- SPECIFIC ANTIGEN DIAGNOSTIC Lab Routine Cancer of prostate w/med recur risk (T2b-c or Nicola 7 or PSA 10-20) (HCC) Expected: 04/20/2025, Expires: 07/20/2025[facility] Work Phone: Comment on above:Expected: 04/20/2025, Expires: 07/20/2025Start: 04-20-2025 End: 47-71-3754Vhgnulj encounter imvjuymum79/20/2025 9:45 AM EST Office Visit Radiation Oncology [address] [place] [address] Genoveva Nazario MD [address] [place] [address] [place] [address] 3 month follow upRadiation OncologyComment on above:3 month follow upStart: 24-26-9691SapgpjeiiSelect [facility] Start: 12-14-2024 End: 34-28-6232Mbohyfjt specific Ag [Mass/volume] in Serum or PlasmaPROSTATE- SPECIFIC ANTIGEN DIAGNOSTIC Lab Routine Prostate cancer (HCC) Expected: 12/14/2024, Expires: 03/15/2025[facility] Work Phone: Comment on above:Expected: 12/14/2024, Expires: 03/15/2025Start: 12-13-2024 End: 39-93-8202Ftbcwkm encounter aiagbafca48/15/2025 1:15 PM EDT Office Visit Radiation Oncology [address] [place] [address] Genoveva Nazario MD [address] [place] [address] 1 yr rvRadiation OncologyComment on above:1 yr rvStart: 07-09-2025Medicare Annual Wellness (AWV)Medicare Annual Wellness (AWV)[facility] HealthcareStart: 12-06-2024 End: 61-36-4579Iiaphox encounter /08/2025 1:00 PM EDT Office Visit [facility] [address] [place] [address] LabNortCorewell Health [facility] LaboratoryComment on above:LabStart: 87-58-2816Vnraeodv blood countHemoglobin/HematocritDiley Ridge Medical Centertart: 43-16-2547Wpvauqnfkg measurementSerum CreatinineTrumbull Memorial Hospital Start: 09-29-2024 End: 54-07-3932Npitxld encounter /01/2025 10:00 AM EDT Office Visit [facility] [address] [place] [address] Nasir Ward, VALENTIN [address] [place] [address] [facility] FMStart: 08-18-2024 End: 52-46-7530Bwiyurg encounter qnhxgehfj29/20/2025 10:00 AM EDT Office Visit [facility] [address] [facility] [address] [place] [address] Chaim Grayson, [address] [facility] [address] [place], [place] [id number] [facility]: 42-69-0242Cgldsioj identified in Urine by CultureUrine CultureMcCullough-Hyde Memorial Hospitaltart: 08-10-2024 Urine cultureMcCullough-Hyde Memorial Hospitaltart: 07-13-2024 End: 05-54-7409Phpidqj encounter procedureNOMS CWM FMComment on above:Arrived Start: 85-62-6776Qjcvwhvdxf measurementSerum CreatinineDiley Ridge Medical Centertart: 65-46-6858Wskeskg Directive DiscussionAdvance Directive DiscussionDiley Ridge Medical Centertart: 01-01-2025Medicare Advantage Annual Wellness VisitMedicare American Healthcare Systems Annual Wellness VisitDiley Ridge Medical Centertart: 04-21-2024 End: 19-31-5756Ojjktnc encounter procedureNOMS CWM FMComment on above:Arrived Start: 97-89-3662Aepxlyiv identified in Urine by CultureMcCullough-Hyde Memorial Hospitaltart: 73-00-2007Ejlob-19 Vaccine ( season)Covid-19 Vaccine ( season)[facility]art: 08-80-4988Wgdluguot vaccinationInfluenza Vaccine (#1)[facility]: 01-20-2024 End: 87-43-2947Odknkdb encounter azwadqbid83/21/2024 6:00 PM EDT Office Visit [facility] [address] [place] [address] Nasir Ward, VALENTIN [address] [place] [address] Primary hypertension (CMS/HCC) (Primary Dx); Coronary artery disease involving [place] coronary artery of [place] heart without angina pectoris (CMS/HCC); Stage 3a chronic kidney disease (HCC) (CMS/HCC); Gastroesophageal reflux disease without esophagitisNOMS CWM FMComment on above:Primary hypertension (CMS/HCC) (Primary Dx); Coronary artery disease involving [place] coronary artery of [place] heart without angina pectoris (CMS/HCC); Stage 3a chronic kidney disease (HCC) (CMS/HCC); Gastroesophageal reflux disease without esophagitisStart: 81-38-7591Hknnl brachial pressure indexMcCullough-Hyde Memorial Hospitaltart: 08-18-2023 End: 23-27-3284Gwnmpax encounter pecfyrqsi38/19/2024 11:10 AM EDT Office Visit [address] [place] [phone] Chaim Grayson DO [address] [facility] [address] [place], [place] [id number] [facility]: 07-08-2023 End: 83-23-4155Bcjxafrq Jtfmqhx2207/08/2023 10:30 AM EST Clinical Support [address] [place] [phone] [facility] Start: 06-04-2023 End: 33-79-7536Rdcopws aminotransferase [Enzymatic activity/volume] in Serum or Plasma by With P-5'-PAlanine Aminotransferase Lab Routine Hypertension, unspecified type Bilateral carotid artery disease, unspecified type (CMS/HCC) Expected: 06/04/2023 (Approximate), Expires: [facility]2024[facility] Work Phone: Comment on above:Expected: 06/04/2023 (Approximate), Expires: 06/04/2024Start: 06-04-2023 End: 47-86-7786Jecmclzwg aminotransferase [Enzymatic activity/volume] in Serum or Plasma by With P-5'-PAspartate Aminotransferase Lab Routine Hypertension, unspecified type Bilateral carotid artery disease, unspecified type (CMS/HCC) Expected: 06/04/2023 (Approximate), Expires: 06/04/2024[facility] Work Phone: Comment on above:Expected: 06/04/2023 (Approximate), Expires: 06/04/2024Start: 06-04-2023 End: 42-90-5851Qahfh metabolic 2000 panel - Serum or PlasmaBasic Metabolic Panel Lab Routine Hypertension, unspecified type Mixed hyperlipidemia Expected: 08/2023 (Approximate), Expires: 06/04/2024[facility] Work Phone: Comment on above:Expected: 06/04/2023 (Approximate), Expires: 06/04/2024Start: 06-04-2023 End: 43-68-6395Npdzx 1996 panel - Serum or PlasmaLipid Panel Lab Routine Mixed hyperlipidemia Expected: 06/04/2023 (Approximate), Expires: 06/04/2024[facility] Work Phone: Comment on above:Expected: 06/04/2023 (Approximate), Expires: 06/04/2024Start: 06-04-2023 End: 27-01-0692PL Heart Perfusion W stress and W radionuclide IVNuclear Stress Test Cardiac Nuclear Medicine Routine Hypertension, unspecified type Bilateral carotid artery disease, unspecified type (CMS/HCC) Chest pressure Expected: 06/04/2023 (Approximate), Expires: 06/04/2025[facility] Service Area Work Phone: Comment on above:Expected: 06/04/2023 (Approximate), Expires: 06/04/2025Start: 17-28-7351Mjtskfn Directive DiscussionAdvance Directive DiscussionDiley Ridge Medical Centertart: 20-04-7614Dnblxeileu Health Screening Behavioral Health ScreeningDiley Ridge Medical Centertart: 99-12-2123Oypjumvnim AssessmentDepression AssessmentDiley Ridge Medical Centertart: 05-20-2023 End: 03-17-8807Zgzgyarq specific Ag [Mass/volume] in Serum or Plasma PSA/PROSTSPECAG DIAG Lab Routine History of prostate cancer Expected: 05/20/2023, Expires: 07/20/2023[facility] Work Phone: Comment on above:Expected: 05/20/2023, Expires: 07/20/2023Start: 00-57-0886Zyphrzfb blood countHemoglobin/HematocritDiley Ridge Medical Centertart: 19-22-9495PSLAPFNSGP/HEMATOCRITHEMOGLOBIN/HEMATOCRITDiley Ridge Medical Centertart: 18-55-9849PbdnolxxoMcCullough-Hyde Memorial Hospitaltart: 03-09-2023 Bacteria identified in Urine by CultureMcCullough-Hyde Memorial Hospitaltart: 95-55-5518Covcv volume recorder plethysmographyLancaster Municipal Hospital Start: 02-20-2023 End: 46-84-3999WaqmjmoxcMcCullough-Hyde Memorial Hospitaltart: 08-33-5447Xmibk-19 Vaccine ( season)Covid-19 Vaccine ( season)[facility]: 28-19-3025Zqejgalod vaccinationDiley Ridge Medical Centertart: 06-03-2022 End: 18-31-4881Fibghenw identified in Urine by CultureURINE CULTURE Microbiology Routine Hematuria, unspecified type Malignant neoplasm of prostate (HCC) Expected: 06/03/2022 (Approximate), Expires: 08/03/2022[facility] Work Phone: Comment on above:Expected: 06/03/2022 (Approximate), Expires: 08/03/2022Start: 06-03-2022 End: 14-24-6473CA DIP B/OUA DIP B/O Lab Routine Hematuria, unspecified type Malignant neoplasm of prostate (HCC) Expected: 06/03/2022 (Approximate), Expires: 08/03/2022[facility] Work Phone: Comment on above:Expected: 06/03/2022 (Approximate), Expires: 08/03/2022Start: 04-21-7531TLNWALG DIRECTIVE DISCUSSIONADVANCE DIRECTIVE DISCUSSIONDiley Ridge Medical Centertart: 48-25-1194XHLDJMUFXF ASSESSMENT DEPRESSION ASSESSMENTDiley Ridge Medical Centertart: 04-21-2022 End: 37-21-6510Jvfpjnji specific Ag [Mass/volume] in Serum or Plasma PSA/PROSTSPECAG DIAG Lab Routine Malignant neoplasm of prostate (HCC) Expected: 04/21/2022, Expires: 06/21/2022[facility] Work Phone: Comment on above:Expected: 04/21/2022, Expires: 06/21/2022Start: 03-27-2022 End: 36-86-1032TTV W Auto Differential panel - BloodCBC + DIFF Lab Routine Malignant neoplasm of prostate (HCC) Expected: 03/27/2022, Expires: 03/18/2023 [facility] Work Phone: Comment on above:Expected: 03/27/2022, Expires: 03/18/2023Start: 71-05-8496Fekdarpny vaccinationINFLUENZA (#1)[facility] Start: 02-22-0590UJPWTAW DIRECTIVE DISCUSSIONADVANCE DIRECTIVE DISCUSSION [facility]: 51-98-5343ZUKMNAVGPE ASSESSMENTDEPRESSION ASSESSMENT [facility]: 28-84-0306CBMEO-19 VACCINE (3 - Booster for Moderna series)COVID-19 VACCINE (3 - Booster for Moderna series)[facility]: 23-84-8857SZEDI-19 VACCINE (3 - Booster for Moderna series)COVID-19 VACCINE (3 - Booster for Moderna series)[facility]: 46-09-2603FXOLW-19 VACCINE (3 - Moderna series)COVID-19 VACCINE (3 - Moderna series)[facility]: 92-03-1873RPMHS-19 VACCINE (4 - Booster)COVID-19 VACCINE (4 - Booster)[facility]: 43-58-4187CJQPR-19 Vaccine (4 - Moderna series)COVID-19 Vaccine (4 - Moderna series)[facility]: 24-73-7554IAT High Risk: (Elderly (60+) or Population) (1 - 1-dose 75+ series)RSV High Risk: (Elderly (60+) or Population) (1 - 1-dose 75+ series)[facility]: 88-98-7742UKR Vaccine (1 - 1-dose 75+ series)RSV Vaccine (1 - 1-dose 75+ series)[facility]: 87-76-1502HHL Vaccine (1 - 1-dose 60+ series)RSV Vaccine (1 - 1-dose 60+ series)[facility]: 24-88-6263Gkqabbgyc vaccinationLUNG CANCER SCREENINGDiley Ridge Medical Centertart: 73-57-1911Ohxgxzgnahgj Vaccine: 65+ Years (1 of 1 - PCV)Pneumococcal Vaccine: 65+ Years (1 of 1 - PCV)[facility] HospitalStart: 11-34-9379Asvflojje for malignant neoplasm of lungLung Cancer ScreeningDiley Ridge Medical Centertart: 07-98-5882XUSZEVZF VACCINE (1 of 2)SHINGRIX VACCINE (1 of 2)[facility]: 54-22-3406Vqmeiy Vaccines (1 of 2)Zoster Vaccines (1 of 2)[facility] Start: 05-30-5457NWYFDMAP SCREENDIABETES SCREENDiley Ridge Medical Centertart: 1990 Diabetes ScreeningDiabetes ScreeningDiley Ridge Medical Centertart: 1967 DTaP/Tdap/Td Vaccines (1 - Tdap)DTaP/Tdap/Td Vaccines (1 - Tdap)[facility] [place]: 29-03-9832Gltbexqvlsot vaccinationPneumococcal Vaccine (1 of 2 - PCV)[facility]: 1964 Pneumococcal Vaccine: 50+ (1 of 2 - PCV)Pneumococcal Vaccine: 50+ (1 of 2 - PCV) [facility]: 04-02-2233Gjfotvbhoopu Vaccine: 65+ Years (1 of 2 - PCV) Pneumococcal Vaccine: 65+ Years (1 of 2 - PCV)[facility] HospitalStart: 1964 Urine microalbumin profileDiley Ridge Medical Centertart: 48-51-0762Krzis screening for proteinCKD: Urine Protein ScreeningSumma Health: 79-41-6288QLRRFX PCP TEAM CHRONIC DISEASE VISITANNUAL PCP TEAM CHRONIC DISEASE VISITDiley Ridge Medical Centertart: 48-72-7291Buxesil ScreeningAnxiety Screening [facility]ertart: 06-43-4374Peoeshocvb measurementSerum CreatinineDiley Ridge Medical Centertart: 12-97-8689Tsmlojaahf ScreeningDepression ScreeningTrumbull Memorial Hospital Start: 25-80-8438KBKYHEKVY C SCREENINGHEPATITIS C SCREENINGTrumbull Memorial Hospital Start: 90-59-4205Bhkzbhrld C screeningHepatitis C ScreeningTrumbull Memorial Hospital Start: 56-80-5041CXRWS CREATININESERUM CREATININEDiley Ridge Medical Centertart: 05-80-8951Uahda depression screening assessmentDEPRESSION SCREENINGDiley Ridge Medical Centertart: 50-93-5041Rfumafeklmss Vaccine: 65+ (1 - PCV)Pneumococcal Vaccine: 65+ (1 - PCV)[facility]: 78-02-7761Hzfgbjqhzinh Vaccine: 65+ (1 of 2 - PCV)Pneumococcal Vaccine: 65+ (1 of 2 - PCV)[facility]: 1951 Pneumococcal Vaccine: 65+ Years (1 - PCV)Pneumococcal Vaccine: 65+ Years (1 - PCV)[facility]: 93-60-7191Zetrgetnvuyk Vaccine: 65+ Years (1 of 2 - PCV)Pneumococcal Vaccine: 65+ Years (1 of 2 - PCV)[facility] HospitalStart: 07-50-5365WDYJIMCQENYJ: 65+ (1 - PCV)PNEUMOCOCCAL: 65+ (1 - PCV)[facility]ert[facility]: 87-18-7467Ystmx panelLipid PanelSumma Health: 01-24-1946Medicare Annual Wellness VisitMedicare Annual Wellness Visit (AWV)[facility] W Auto Differential panel - BloodCBC and differential Lab Routine Stage 3a chronic kidney disease (HCC) ([facility]/HCC) Ordered: 07/13/2024[facility] [employer] Work Phone: Comment on above:Ordered: 07/13/2024omprehensive metabolic 2000 panel - Serum or PlasmaComprehensive metabolic panel Lab Routine Stage 3a chronic kidney disease (HCC) (CMS/HCC) Ordered: 07/13/2024[facility] HealthcareComment on above:Ordered: 07/13/2024T SIM PLANNING RADIATION ONCOLOGY CT SIM PLANNING RADIATION ONCOLOGY Radiology Routine Malignant neoplasm of prostate (HCC) Ordered: 03/03/2022[facility] Work Phone: Comment on above:Ordered: 03/03/2022 End: 79-90-1426Mcl spinal canal lumbar w/o & w/contr matrlMRI LUMBAR SPINE WO/W IVCON Radiology Routine Spinal stenosis of lumbar region, unspecified whether neurogenic claudication present 1 Occurrences starting 11/19/[address] [place] [address] Work Phone: Comment on above:1 Occurrences starting 11/19/2022 until 12/19/2023 End: 77-73-0215Qfd spinal canal lumbar w/o & w/contr matrlMRI LUMBAR SPINE WO/W IVCON Radiology Routine Spinal stenosis of lumbar region without neurogenic cl audication 1 Occurrences starting 11/21/[address] [place] [address] Work Phone: Comment on above:1 Occurrences starting 11/21/2022 until 12/21/2023 End: 36-15-5720Gvi spinal canal lumbar w/o & w/contr matrlMRI LUMBAR SPINE WO/W IVCON Radiology Routine Spinal stenosis of lumbar region, unspecified whether neurogenic claudication present 1 Occurrences starting 01/06/[address] [place] [address] Work Phone: Comment on above:1 Occurrences starting 01/06/2023 until 4Patient EducationOhiohealth [facility] Work Phone: Patient referralOhiohealth [facility] Work Phone: Renal function 2000 panel - Serum or PlasmaFirelands Regional Medical CenterRenal function 2000 panel - Serum or [facility] SystemRenal function 2000 panel - Serum or [facility] Immunizations Immunization DateImmunizationNotesCare GxovprhcJrlmpsex38-78-0302SVTV-QtK-3 (COVID-19) mRNA-1273 vaccinePaharoldo JOHNSTON [facility] 01-643879-13-8910TXVT-PrD-3 (COVID-19) mRNA-1273 vaccine Barbara JOHNSTON [facility] 01-914168-43-1701IJGFA-15 mRNA-1273 (Moderna)MD Shaikh Storm Work Phone: [facility] HospitalNEGATED: Highlighted row has not occurred!38-00-8418ligfdfppb virus vaccine, unspecified formulation CLAIRE BRITNI [facility] Payers DatePayer CategoryPayerPolicy [id number] [id number] [id number] 2023Medicare (Managed Care)[id number] Health Insurance1.2.840.0555[id number] 2022MedicareHUMANA MEDICARE HUMANA GOLD PLUS [id number] 2021-[facility] [phone] [address] [address] [place], [place] [id number] 1.2.840.046132.1.13.159.2.7.3.226887.315 2022Medicare1.2.840.742052.1.13.159.2.7.3.164576.15382-38-2882Beronlx Health [id number] 2.0.3.737948.72390372-97-3673Zlol-pay [id number] 2.0.1.454229.3.57[id number] 2.0.1.289707.3.579.2.84066-09-7971Apbbioa6442568 2.0.1.917732.3.579.2.44903-53-2994Iikcavn4763079 2.840.1.045526.3.579.2.81922-43-8405Hoehleh0848124 2.0.1.323257.3.579.2.67287-62-8898Oxmrhdj4605764 2.16840.1.637475.3.579.2.84395-37-1970Qnnumjo4305121 2.840.1.330436.3.579.2.74971-89-1715Yisztea8882310 2.840.1.485749.3.579.2.67313-47-6196Pebburf4649301 2.840.1.426414.3.579.2.02850-09-0852Ywayihv4563919 2.16.840.1.457111.3.579.2.14970-25-9432Jomccbl6507478 2.16.840.1.733528.3.579.2.75991-07-8569Neueiyv4502338 2.16840.1.073869.3.579.2.86076-95-0156Mucusyz0391103 2.16840.1.249968.3.579.2.46511-11-3535Vapucbe2482943 2.16840.1.223880.3.579.2.06140-02-6417Kbrepnj4451156 2.16840.1.421437.3.579.2.21587-12-3235Wplxujl8366712 2.16840.1.212689.3.579.2.200297-41-1484Bviyjwz9319202 2.16840.1.458502.3.579.2.608464-17-2120Eqgsmct0064291 2.16840.1.133951.3.579.2.192258-58-2323Wsukbvh9629843 2.16840.1.179068.3.579.2.878105-43-6053Ubgacxs3160404 2.16840.1.570732.3.579.2.481406-12-8715Gijygao607028697 2.16840.1.012399.3.579.2.66331-32-7275Vpasudx11804130 2.16840.1.300172.3.579.2.09798-35-3553Hzpnkph44622329 2.16840.1.185375.3.579.2.59814-48-3678Oiwynpt23538611 2.16.840.1.581071.3.579.2.74289-56-7411Obrhard51065469 2.16840.1.593709.3.579.2.68469-66-1610Gelgktt29391713 2.16840.1.087240.3.579.2.73147-60-1930Vhafdiz62840355 2.16840.1.348788.3.579.2.38227-91-4742Qbovkqx28364664 2.16840.1.733795.3.579.2.42867-23-4441Fjxshti7162767 2.16840.1.613112.3.579.2.306942-47-6394Ujiwhbv9754022 2.840.1.615315.3.579.2.180140-51-8118Svzerpn4412697 2.16840.1.361967.3.579.2.998870-58-8363Djwmpxq7503413 2.16840.1.946119.3.579.2.897851-96-4096Wskaapj6709577 2.16840.1.585085.3.579.2.368545-33-2252Ozhuxna14030182 2.16840.1.954069.3.579.2.56068-94-0428Telhbwl58297907 2.16840.1.856793.3.579.2.15921-10-0127Lfoeoaj67463553 2.16840.1.092487.3.579.2.72119-49-0328Zdcawlj83337911 2.16840.1.438652.3.579.2.89410-25-1658Bqwidlo97481700 2.16.840.1.809890.3.579.2.13192-40-4421Rumpsvl663230267 2.16.840.1.469438.3.579.2.340344-37-5219Lnqoios42781851 2.16.840.1.622514.3.579.2.09616-40-7748Pgoiytz97254042 2.16.840.1.460522.3.579.2.29690-63-8658Felhvat40074924 2.16.840.1.522380.3.579.2.52164-89-0826Dobfmwf41359903 2.16.840.1.578398.3.579.2.10463-89-4285Tbdnwkc57378668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 claudication Mixed hyperlipidemia (CMS/HCC) Mixed hyperlipidemia Primary hypertension (CMS/HCC) Unspecified essential hypertension documented in this encounter [facility] HospitalUzdolctett43-45-4459 History of Present illness Narrative* Nasir Ward [...] 04/21/2024 11:42 AM ESTAssociated Problem(s): HLD (hyperlipidemia) ([facility]/HCC) Currently taking Prvastatin 40mg Denies any myalgias. [...] CHOLESTEROL mg/dL 16 CHOL/HDL RATIO <5.0 3.6 [facility] CKD: Follows with Nephrology. Avoid nephrotoxic agents. Monitor closely. Following with Pain Management for Lumbar Stenosis. Recently had surgery. Pt reports he recently had blood work done in January- nothing new in [place]. Will request labs from Dr. Thakkar. Review [...] Denies any myalgias. Continue current regimen. Hypertension ([facility]/HCC) Currently taking amlodipine, valsartan. Follows with Cardiology Does not check BP at home; Denies orthostatic changes, dizziness, cough, shortness of breath, swelling in extremities. Continue current regimen. Given BP log, advised pt to record BP and bring log back with them to next visit. Stage 3 chronic kidney disease (HCC) (CMS/HCC) Follows with Nephrology. Avoid nephrotoxic agents. Monitor closely. documented in this encounterBates County Memorial HospitalTyhsoczixm78-07-3101 Hospital Discharge instructions Patient Education 04/18/2024 12:09:27 [...] Treatment for this condition includes: Antibiotic medicine. Fkcv-zpz-rvznfzf medicines to treat discomfort. Drinking enough water [...] Follow these instructions at home: Medicines Take nxpv-elc-kyxxwwk and prescription medicines only as told by [...] provider. Document Revised: 12/23/2020 Document Reviewed: 12/28/2020 [employer] Patient Education 2023 [employer]. Follow Up Care 09/18/2023 12:00:10 With:PRESTON MAK, Barbara Warner, URL Address: [facility] [address] [place] [address]- [phone] When: Unknown Comments:1 yr w/ PSA [facility] 11-18-2024 NotePatient Education Obstetrics and Gynecology [...] this condition includes: ??? Antibiotic medicine. ??? Annn-lnf-kivfguv medicines to treat discomfort. ??? Drinking enough [...] these instructions at home: Medicines ??? Take hjsy-xzx-hmensrd and prescription medicines only as told by [...] Make sure you di (more content not included)...[facility]09-19-2024 Telephone encounter Note* Telephone Encounter - Sugar Wellington MA - 02/18/2024 9:49 AM EDT [facility] from [facility] HospitalOavjcyvgbb17-70-4854 Miscellaneous Notes* Telephone Encounter - Sugar Wellington MA - 02/18/2024 9:49 AM EDT Refill request from [facility] - documented in this encounterBates County Memorial HospitalJsylhcdpjn46-97-1104 Telephone encounter Note* Telephone Encounter - Sugar Wellington MA - 02/02/2024 11:29 AM EDT PT INTO OFFICE AND SAID ALL OTHER RXS WERE SENT IN FOR 90 DAY SUPPLIES BUT AMLODIPINE WASN'T SENT IN? CAN YOU SEND IN A DAY BEFORE THURSDAY THEY ARE LEAVING OUT OF STATE FOR THREE MONTHS. -SCR [facility] HospitalRpbvbjlyee64-00-7975 Miscellaneous Notes* Telephone Encounter - Sugar Wellington MA - 02/02/2024 11:29 AM EDT PT INTO OFFICE AND SAID ALL OTHER RXS WERE SENT IN FOR 90 DAY SUPPLIES BUT AMLODIPINE WASN'T SENT IN? CAN YOU SEND IN A BEFORE THURSDAY THEY ARE LEAVING OUT OF STATE FOR THREE MONTHS. -SCR documented in this encounterBates County Memorial HospitalYypjexkoyu19-31-0881 History of Present illness Narrative* Nasir Ward [...] Problem(s): Stage 3 chronic kidney disease (HCC) ([facility]/HCC) Follows Nephrology Dr. Thakkar CKD stage 3. Continue to monitor and avoid nephrotoxic agents. * Nasir Ward NP - 01/20/2024 6:42 PM EDTAssociated Problem(s): Coronary artery disease involving [place] coronary artery of [place] heart with out angina pectoris (CMS/HCC) Follows [...] avoid nephrotoxic agents. Coronary artery disease involving [place] coronary artery of [place] heart without angina pectoris (CMS/HCC) Follows Cardiology [...] very well. Denies complaints. documented in this encounterBates County Memorial [id number] Instructions* Patient Instructions* Nasir Ward NP - 01/20/2024 6:00 PM EDT Referral sent to Dr. Bryant- Urology; They will call you! Call if you need anything! documented in this encounterBates County Memorial [id number] Evaluation note* Diagnosis Prostate cancer (HCC)- Primary Malignant neoplasm of prostate Stage 3 chronic kidney disease, unspecified whether stage 3a or 3b CKD (HCC) documented in this encounter [facility] Nurse Note* Diane Parada LPN - 12/15/2023 2:36 PM EDT AUA= 13 [facility]07-16-2024 Nurse Note* Diane Parada LPN - 12/15/2023 2:36 PM EDT AUA= 13 documented in this encounterTrumbull Memorial Hospital07-16-2024 History of Present illness Narrative* Genoveva [...] ASSESSMENT/PLAN: Prostate adenocarcinoma, initial PSA 9.95, biopsy Seattle score 3 + 4 = 7 (grade [...] Genoveva Nazario MD cc: Shaikh Dotty [address] [place] [address] documented in this encounterTrumbull Memorial Hospital04-19-2024 Hospital Discharge instructions Patient Education 09/18/2023 11:40:21 [...] to keep your urine pale yellow. ?Take wkee-ocw-pjufjzo or prescription medicines. ?Eat foods that are high in fiber, such as beans, whole grains, and fresh fruits and vegetables. ?Limit foods that are high in fat and processed sugars, such as fried or sweet foods. General instructions Take vpli-lfi-moissvp and prescription medicines only as told by [...] the muscles that help control urination. Take fepu-nwl-rvsketw and prescription medicines only as told by your health care provider. Contact a health care provider if your symptoms do not improve or get worse. This information is not intended to replace advice given to you by your health care provider. Make sure you discuss any questions you have with your health care provider. Document Revised: 12/21/2020 Document Reviewed: 12/21/2020 ElseAny+Times Patient Education 2022 [employer]. Follow Up Care 07/07/2023 09:49:12 With:PRESTON MAK, Barbara Warner, URL Address: [address] [place], [place] [address]- When: Unknown [facility] 03-19-2024 History of Present illness Narrative* [...] his history are noted for prior inferior PR with revascularization of the RCA in [place] [...] normal. Judgment: Judgment normal. Allergies Ezetimibe and Gixloza-eth-vkm reductase inhibitors Current Medications Current Outpatient Medications: [...] , Rfl: ergocalciferol (Vitamin D-2) 1.25 MG (60362 UT) capsule, Take 1 capsule (1,250 mcg) by mouth 1 (one) time per week., Disp: , Rfl: gabapentin (Neurontin) 100 mg capsule, Take 1 capsule (100 mg) by mouth 2 times a day., Disp: , Rfl: HYDROcodone-acetaminophen (Wyaconda) 7.5-325 mg tablet, Take 1 tablet by [...] Follow Up In Cardiology 4. History of PR (myocardial infarction) 5. BMI 28.0-28.9,adult 6. ASHD (arteriosclerotic heart disease) 7. PVD (peripheral vascular disease) ([facility]) 8. Smoker 9. Chest pain, unspecified type [...] in [facility] Work Phone: 1(753) 762-385303-19-2024 Instructions* Patient Instructions* Shahla Foster MA - [...] in this encounterSelect [facility] [place] Work Phone: 1(450) 952-735901-14-2024 NoteHNO ID: [id number] Author: KODI REYNOLDS MD Service: ? Author [...] male who recently moved from [place] to [place]. He reports longstanding history of back and [...] 0 0 0 PHQ- (more content not included)...[facility] [id number] History of Present illness Narrative* Kodi Reynolds [...] male who recently moved from [place] to [place]. He reports longstanding history of back and [...] BICEPS TRICEPS DELTS Wrist Ext Wrist Flex Or Manager HI R 5 5 5 5 [...] heat Medications: See medication reconciliation list in [facility] MEDICATIONS: Hydrocodone, Gabapentin 2018 back surgery with a 50-70% relieve PT done 2021 How is your appetite?: normal Do you feel safe in the home? Yes Do you have concerns about falling or have you fallen in the past year? No Do you have difficulty performing or completing routine daily living activities? No Bert Harper documented in this encounterCleveland [id number] NoteHNO ID: [id number] Author: ?, ?, ? Service: ? Author [...] heat Medications: See medication reconciliation list in [facility] MEDICATIONS: Hydrocodone, Gabapentin 2017 back surgery with a 50-70% relieve PT done 2021 How is your appetite?: normal Do you feel safe in the home? Yes Do you have concerns about falling or have you fallen in the past year? No Do you have difficulty performing or completing routine daily living activities? No [facility]01[facility]04[facility] History of Present illness Narrative * Chaim Grayson, DO - 06/04/2023 9:50 AM EST Cardiology Consultation- New Consult Reason for referral: 77-year-old gentleman seen in cardiology consultation at the request of primary care physician Dr. Storm, for further evaluation regarding chest discomfort. Patient moved from [place] to the local area approximately 2 years ago. He has a history of previous inferior PR in the mid with revascularization of the [...] ischemia given his risk factors and previous PR and revascularization on follow-up thereafterwards HPI: Yesenia Renteria is a 77 y.o. male Past Medical History: He has a past medical history of Abnormal ECG (05-20-2023), Cancer ([facility]) (07/07/2021), Chronic kidney disease, Coronary artery disease, Hypertension, Myocardial infarction ([facility]/HCC) (10/30/1996), and Stroke ([facility]) (01/31/12). Surgical History: He has a [...] Alcohol use: Not Currently Allergies: Ezetimibe and Zdewced-jze-oud reductase inhibitors Current Medications: Current Outpatient Medications: [...] , Rfl: ergocalciferol (Vitamin D-2) 1.25 MG (50977 UT) capsule, Take 1 capsule (1,250 mcg) by mouth 1 (one) time per week., Disp: , Rfl: HYDROcodone-acetaminophen (Wyaconda) 7.5-325 mg tablet, Take 1 tablet by [...] of Kaya Grayson DO. documented in this [facility] Work Phone: 1(974) 581-524001-04-2024 Instructions* Patient Instructions* Yunier Mathur MA - [...] in this encounterSelect [facility] [place] Work Phone: 1(886) 380-143001-04-2024 Evaluation note* Diagnosis Hypertension, unspecified type Stage 3 chronic kidney disease, unspecified whether stage 3a or 3b CKD (CMS/HCC) Mixed hyperlipidemia Bilateral carotid artery disease, unspecified type (CMS/HCC) Smoker Tobacco use disorder Chest pressure Other chest pain documented in this encounter [facility] Work Phone: 1(249) 144-819512-20-2023 Miscellaneous Notes* Telephone Encounter - Claire Koroma - 05/20/2023 9:14 AM EST Margaret- records were not sent, so we shouldn't have to call and cancel. * Telephone Encounter - Diane Parada LPN - 05/20/2023 9:08 AM EST Mrs. Broussard called stating they contacted one of Dexter's previous physicians at [facility] spine clinic and he will arrange for Dexter to see [facility] neurosurgeon. Please cancel the referral to [facility] neurosurgeon perpatient request. Diane Parada RN * Telephone Encounter - Margaret Castle - 05/19/2023 2:11 PM EST Neelam when order is signed can you please send records to Dr Marvin at [facility] thank you! Facesheet in your box documented in this encounterTrumbull Memorial Hospital12-19-2023 Miscellaneous Notes* Telephone Encounter - Julianna Yuan RN - 05/19/2023 10:45 AM EST Patient is requesting referral to Surgeon. He looks like had MRI of Lumbar spine on 02/20/2023 but no images in system. We do have report. documented in this encounterTrumbull Memorial Hospital11-21-2023 Hospital Discharge instructions Patient Education 04/21/2023 [...] Follow these instructions at home: Medicines Take skqb-sxf-grevfty and prescription medicines only as told by [...] provider. Document Revised: 08/14/2021 Document Reviewed: 08/14/2021 [employer] Patient Education 2022 [employer] Follow Up Care 02/11/2023 15:24:55 With:BRITNI ENCINAS CLAIRE Elbert, URL Address: [address] [address] [phone] When: Unknown [facility] 11-16-2023 Evaluation note* Encounter Date Diagnosis [...] in 6 months with repeat surveillance ABIs. [facility] 10-23-2023 [facility]* Encounter Date Diagnosis Assessment [...] will schedule this in the near future. [facility] 09-20-2023 Evaluation note* Encounter Date Diagnosis [...] once again all his questions were addressed. [facility] 09-13-2023 Hospital Discharge instructions Patient Education [...] urethra. Follow these instructions at home: Take qqzz-yfu-tnmxmuy and prescription medicines only as told by [...] provider. Document Revised: 12/04/2021 Document Reviewed: 12/04/2021 [employer] Patient Education 2022 Bundlr. Follow Up Care 01/05/2023 13:14:43 With:CLAIRE JAMES PA-C, URL Address: [address] [place] [address] When:Within 8 Week(s) [facility] 08-22-2023 Miscellaneous Notes* Telephone Encounter - [...] Team tab: Yes Patient appears on the [employer] SW Report for a PHQ-9 score of [...] as appropriate. JENNIE Lange documented in this encounterTrumbull Memorial Hospital08-21-2023 History of Present illness Narrative* [employer] Jose GenovevaDO - 01/19/2023 12:49 PM EDT Images from the original note were not included. [facility] - Medical [...] lumbar decompression and partial discectomy L4-5 at [facility] in [place] . Now follows with Pain Management in [place], [place]. Received opinion from his son's spine surgeon Dr. Farias in [place]. After review of imaging he was offered L4-S1 ALIF with posterior L4-S1 robotic assisted fusion. Since they do not live in [place] he was recommended to seek consultation at [facility]. Pain is located midline and bilateral [...] spine interventions: -Lumbar procedures with [facility] Dr. Oliva. -RFA ordered following MBB [...] Previously treated by: -Pain Management at [facility] in [place], [place], Dr. Barbara Farias on 07/07/22 virtual [...] See below Social: Home life: Moved to [place] 2020. Litigation: No Workers' Compensation: No YELLOW [...] independently [facility] The bones of the lumbar spine [...] L5 nerve root. 11/26/21 [facility]: Bones: No suspicious bony lesion. Normal [...] 2023 TIME: 12:50 PM documented in this encounterTrumbull Memorial Hospital08-18-2023 Miscellaneous Notes* Telephone Encounter - Julianna Yuan RN - 01/16/2023 8:13 AM EDT Left message on voicemail for patient to call office back or to read [employer] message. * Telephone Encounter - Julianna Yuan [...] calling: self Call patient at: at home [phone] (home) [phone] (cell) Was an appointment scheduled: No Closing statement: Results or non-symptom based questions: Thank you for calling [facility], your call will be returned within the next business day. Paul Cat documented in this encounterTrumbull Memorial Hospital08-08-2023 Miscellaneous Notes* Telephone Encounter - Livier Barrera RN - 01/06/2023 8:13 AM EDT Please sign pended new order for Lumbar Spine MRI as it needs to state that it needs to be done with anesthesia. Thank you Livier Barrera RN documented in this encounterTrumbull Memorial Hospital08-07-2023 Miscellaneous Notes* Telephone Encounter - Evelyn [...] [facility]. documented in this encounterTrumbull Memorial Hospital07-05-2023 Hospital Discharge instructions Patient Education 12/03/2022 [...] to keep your urine pale yellow. ?Take raeg-juu-lhvoddc or prescription medicines. ?Eat foods that are high in fiber, such as beans, whole grains, and fresh fruits and vegetables. ?Limit foods that are high in fat and processed sugars, such as fried or sweet foods. General instructions Take kmhw-yek-bdmsikv and prescription medicines only as told by [...] the muscles that help control urination. Take jukh-muo-ftgekug and prescription medicines only as told by your health care provider. Contact a health care provider if your symptoms do not improve or get worse. This information is not intended to replace advice given to you by your health care provider. Make sure you discuss any questions you have with your health care provider. Document Revised: 12/21/2020 Document Reviewed: 12/21/2020 [employer] Patient Education 2022 Bundlr. Follow Up Care 10/28/2022 10:11:31 With:BRITNI ENCINAS, CLAIRE Boswell, URL Address: [address] [place] [address] When:Within 5 Week(s) [facility] 06-23-2023 Miscellaneous Notes* Telephone Encounter - [...] completed. This can only be completed at [facility] Main & orders must be revised to reflect such. Thanks, Kadi Cotton * Telephone Encounter - Kadi Cotton - 11/18/2022 2:17 PM EDT Per [facility] Neurosurgery, a more recent MRI is required before scheduling the patient to be seen. They are requesting new MRI orders to be placed before completing consult. Kadi Cotton documented in this encounterTrumbull Memorial Hospital06-21-2023 History of Present illness Narrative* Elizabeth Freire APRN.TELEPHONE QUOTATION CLERK - 11/19/2022 12:22 PM EDT Yesenia Broussard [...] cancer. Elizabeth Freire APRN.GILBERTO documented in this encounterTrumbull Memorial Hospital06-21-2023 Evaluation note* Diagnosis Prostate cancer (HCC) Malignant neoplasm of prostate Stage 3 chronic kidney disease, unspecified whether stage 3a or 3b CKD (HCC) documented in this encounter [facility]06-[facility] Nurse Note* Nadja Guardado - 11/18/2022 2:34 PM EDT Clinical questionnaires incomplete due to Patient was roomed by provider documented in this encounterTrumbull Memorial Hospital06-20-2023 Nurse Note* Livier Barrera RN - 11/18/2022 1:32 PM EDT AUA 21 Livier Barrera RN documented in this encounterTrumbull Memorial Hospital06-20-2023 History of Present illness Narrative* Genoveva [...] ASSESSMENT/PLAN: Prostate adenocarcinoma, initial PSA 9.95, biopsy Seattle score 3 + 4 = 7 (grade [...] MD cc: Shaikh Dotty [address] [place] [address] documented in this encounterTrumbull Memorial Hospital01-06-2023 Miscellaneous Notes* Telephone Encounter - STEPHANIE [...] call back. JENNIE Lange documented in this encounterTrumbull Memorial Hospital01-05-2023 Nurse Note* Kelly Hector - 06/05/2022 12:40 PM EST Back office UA test performed. Results entered in [employer] and doctor notified. Kelly Hector MA documented in this encounterTrumbull Memorial Hospital12-15-2022 Miscellaneous Notes* Telephone Encounter - Diane Parada LPN - 05/15/2022 1:51 PM EST Nena, pt's , notified to have Dexter complete the Cipro prescription and have urine rechecked in 2-3 weeks. Call transferred to [facility] to schedule lab appt. Dr. Nazario, please sign pended lab orders. Diane Parada LPN documented in this encounterTrumbull Memorial Hospital12-15-2022 NoteCONSULTATION CONSULTATION DATE: 05/15/2022 HISTORY OF [...] surgery. Medications include Lyrica 75 mg t.i.d., Wyaconda 5/325 t.i.d. and baclofen 10 mg q.h.s. [...] for an appointment upon return from [place].[facility] [id number] History of Present illness Narrative* STEPHANIE Lange - 04/30/2022 3:01 PM EST SOCIAL WORK FOLLOW UP NOTE: [facility] Date of service:04/30/22 TOPICS ADDRESSED: community resources PLAN: Continue follow up as needed Assigned SW listed in Care Team tab: Yes SW completed and faxed a mileage reimbursement log to [facility] for the month of April 2022. JENNIE Lange documented in this encounterTrumbull Memorial Hospital11-23-2022 History of Present illness Narrative* Genoveva Nazario MD - 04/23/2022 12:00 AM EST [facility] Radiation Oncology Department RADIATION ONCOLOGY - COMPLETION NOTE PATIENT: YESENIA BROUSSARD: 1945 DATES OF TREATMENT: 03/18/2022- 04/23/2022 DIAGNOSIS: Prostate adenocarcinoma, initial PSA 9.95, biopsy Seattle score 3 + 4 = 7 (grade [...] / WST :35 PM documented in this encounterTrumbull Memorial Hospital11-21-2022 History of Present illness Narrative* Genoveva [...] treatment. Genoveva Nazario MD documented in this encounterTrumbull Memorial Hospital11-14-2022 History of Present illness Narrative* Genoveva [...] outlined. Genoveva Nazario MD documented in this encounterTrumbull Memorial Hospital11-07-2022 History of Present illness Narrative* Genoveva Nazario MD - 04/07/2022 11:03 AM EST Radiation Oncology - On Treatment Review (OTR) Note PATIENT NAME: Yesenia Broussard PATIENT DIAGNOSIS: Prostate adenocarcinoma, initial PSA 9.95, biopsy Seattle score 3 + 4 = 7 (grade [...] outlined. Genoveva Nazario MD documented in this encounterTrumbull Memorial Hospital10-31-2022 History of Present illness Narrative* Genoveva Nazario MD - 03/31/2022 3:29 PM EDT Radiation Oncology - On Treatment Review (OTR) Note PATIENT NAME: Yesenia Broussard PATIENT DIAGNOSIS: Prostate adenocarcinoma, initial PSA 9.95, biopsy Seattle score 3 + 4 = 7 (grade [...] outlined. Genoveva Nazario MD documented in this encounterTrumbull Memorial Hospital10-31-2022 History of Present illness Narrative* STEPHANIE [...] March 2022. JENNIE Lange documented in this encounterTrumbull Memorial Hospital10-27-2022 Nurse Note* Livier Barrera RN - [...] assist. Livier Barrera RN documented in this encounterTrumbull Memorial Hospital10-24-2022 History of Present illness Narrative* G Jose Nazario MD - 03/24/2022 4:00 PM EDT Radiation Oncology - On Treatment Review (OTR) Note PATIENT NAME: Yesenia Broussard PATIENT DIAGNOSIS: Prostate adenocarcinoma, initial PSA 9.95, biopsy Seattle score 3 + 4 = 7 (grade [...] outlined. Genoveva Nazario MD documented in this encounterTrumbull Memorial Hospital10-18-2022 History of Present illness Narrative* Genoveva [...] prescribed. Genoveva Nazario MD documented in this encounterTrumbull Memorial Hospital10-18-2022 Miscellaneous Notes* Telephone Encounter - Diane Parada LPN - 03/18/2022 8:31 AM EDT CBC order the second week during radiation is pending your approval. Diane Parada LPN documented in this encounterTrumbull Memorial Hospital10-13-2022 NoteCONSULTATION PROCEDURE DATE: 03/13/2022 PREOPERATIVE DIAGNOSIS: [...] the procedure well with no overt complications.[facility] F[facility] [id number] NoteCONSULTATION CONSULTATION DATE: 03/13/2022 HISTORY OF PRESENT [...] current medications include Lyrica 75 mg t.i.d., Wyaconda 5/325 t.i. d., baclofen 10 mg q.h.s. [...] and will return in six weeks' time.[facility] [id number] History of Present illness Narrative* STEPHANIE Lange [...] as appropriate. JENNIE Lange documented in this encounterTrumbull Memorial Hospital10-12-2022 History of Present illness Narrative* Genoveva Nazario MD - 03/12/2022 12:00 AM EDT YESENIA BROUSSARD [id number] 03/12/2022 [facility] Department of Radiation Oncology Treatment Planning [...] and/or ports and DVH. Electronically Signed Jose Naazrio M.D. 21:57 PM documented in this encounterTrumbull Memorial Hospital10-04-2022 Miscellaneous Notes* Telephone Encounter - STEPHANIE [...] as appropriate. JENNIE Lange documented in this encounterTrumbull Memorial Hospital10-03-2022 History of Present illness Narrative* Genoveva Nazario MD - 03/03/2022 10:42 AM EDT Unable to complete simulation due to anxiety related to claustrophobia. Prescription for Valium given. We will reschedule. documented in this encounterTrumbull Memorial Hospital09-27-2022 Miscellaneous Notes* Telephone Encounter - Margaret Mcpherson [...] Thanks Diane Parada LPN documented in this encounterTrumbull Memorial Hospital09-12-2022 Miscellaneous Notes* Telephone Encounter - Livier [...] Thanks Maddy Waite MA documented in this encounterTrumbull Memorial Hospital08-25-2022 NoteCONSULTATION CONSULTATION DATE: 01/23/2022 HISTORY OF [...] well enough that he went [place] the [employer] to watch a tractor pull. Sitting on [...] ice. Medications include baclofen 10 mg q.h.s., Wyaconda 5/325 t.i.d., Lyrica 75 mg b.i.d. Patient's [...] followed up in the clinic post procedure.[facility] [place] [address]-01-2022 Miscellaneous Notes* Telephone Encounter - Diane Parada [...] advise. Diane Parada LPN documented in this encounterTrumbull Memorial Hospital07-28-2022 NoteCONSULTATION CONSULTATION DATE: 12/26/2021 HISTORY OF [...] His medications include baclofen 10 mg q.h.s., Wyaconda 5/325 t.i.d. and Lyrica 50 mg b.i.d. [...] and he is in agreement to this.The Flower [id number] Nurse Note* Diane Parada LPN - 12/10/2021 9:20 AM EDT AUA= 10 documented in this encounterTrumbull Memorial Hospital07-12-2022 History of Present illness Narrative* Genoveva Nazario MD - 12/10/2021 9:00 AM EDT Radiation Oncology - Prostate Cancer New Patient/Consult Note PATIENT NAME: Yesenia Broussard PATIENT REQUESTING PROVIDER: Dr. Johnston DIAGNOSIS: 76 year old male with prostate adenocarcinoma, initial PSA 9.95, biopsy Seattle score 3 + 4 = 7 (grade [...] underwent TURP on 06/06/2021. Pathology demonstrating adenocarcinoma, Seattle 7 (3+4), involving 21 to 30% of [...] ASSESSMENT/PLAN: Prostate adenocarcinoma, initial PSA 9.95, biopsy Seattle score 3 + 4 = 7 (grade [...] MD cc: Shaikh Dotty [address] [address] Barbara Johnston [address] [place] [address] documented in this encounterTrumbull Memorial Hospital06-06-2022 Evaluation + Plan note Diagnostic Tests Pending * PSA Total 11/04/21 [facility] 06-06-2022 Hospital Discharge instructions Patient Education [...] 05/18/2006 Document Revised: 02/04/2019 Document Reviewed: 04/17/2017 [employer] Patient Education 2020 [employer]. 11/04/2021 10:39:39 Benign Prostatic Hyperplasia Benign Prostatic [...] urethra. Follow these instructions at home: Take hptn-nez-uynmmcy and prescription medicines only as told by [...] 05/18/2006 Document Revised: 04/12/2019 Document Reviewed: 06/22/2017 [employer] Patient Education 2020 [employer]. 11/04/2021 10:39:34 Prostate Cancer Prostate Cancer The [...] who: Are older than age 65. Are -Singaporean. Are obese. Have a family history of [...] cells. Follow these instructions at home: Take inuq-laq-qhjknkb and prescription medicines only as told by [...] 05/18/2006 Document Revised: 04/30/2018 Document Reviewed: 01/26/2017 [employer] Patient Education 2020 [employer]. Follow Up Care 07/01/2021 09:43:21 With:PRESTON MAK, Barbara Warner, URL Address: [facility] [address] [place] [id number] When: Unknown Comments:Will schedule MRI of prostate w/wo and Perineal prostate biopsy. [facility] 05-26-2022 Evaluation note* Encounter Date Diagnosis [...] statins. Monitor LFTs and lipid profile periodically. [facility] Other Evaluation + Plan note Future Appointments Appointment Date:01/06/2023 09:15:00 AM Scheduled Provider:CLAIRE JAMES PA-C Location:[facility] Appointment Type:URO Office Visit [facility] evaluation + Plan note Future Appointments Appointment Date:04/21/2023 08:30:00 AM Scheduled Provider:CLAIRE JAMES PA-C Location:[facility] Appointment Type:URO Office Visit [facility] evaluation + Plan note Future Appointments Appointment Date:07/07/2023 09:00:00 AM Scheduled Provider:CLAIRE JAMES PA-C Location:[facility] Appointment Type:URO Office Visit Diagnostic Tests Pending * Electrolyte Panel 04/21/23 [facility] evaluation + Plan note Future Appointments Appointment Date:07/07/2023 09:00:00 AM Scheduled Provider:CLAIRE JAMES PA-C Location:[facility] Appointment Type:URO Office Visit Diagnostic Tests Pending * [facility]ments Appointment Date:04/01/2024 10:45:00 AM Scheduled Provider:Barbara JOHNSTON MD Location:[facility] Appointment Type:URO Office Visit Diagnostic Tests Pending * PSA Total 12/31/23 [facility] evaluation + Plan note Future Appointments Appointment Date:04/18/2024 12:45:00 PM Scheduled Provider:Barbara JOHNSTON MD Location:[facility] Appointment Type:URO Office Visit Diagnostic Tests Pending * Urine Culture 04/07/24 [facility] evaluation + Plan note Future Appointments Appointment Date:04/18/2024 12:45:00 PM Scheduled Provider:Barbara JOHNSTON MD Location:[facility] Appointment Type:URO Office Visit [facility] evaluation + Plan note Future Appointments Appointment Date:04/21/2025 10:15:00 AM Scheduled Provider:Barbara JOHNSTON MD Location:[facility] Appointment Type:URO Office Visit Diagnostic Tests Pending * PSA Total 04/18/24 [facility] evaluation + Plan note Future Appointments Appointment Date:04/21/2025 10:15:00 AM Scheduled Provider:Barbara JOHNSTON MD Location:[facility] Appointment Type:URO Office Visit Diagnostic Tests Pending * Urine Culture 08/08/24 [facility] evaluation + Plan note Future Appointments Appointment Date:04/21/2025 10:15:00 AM Scheduled Provider:Barbara JOHNSTON MD [facility] Appoint[facility] Type:URO Office Visit Diagnostic Tests Pending * Urine Culture 08/22/24 [facility] Evaluation + Plan note Future Appointments Appointment Date:04/21/2025 10:15:00 AM Scheduled Provider:Barbara JOHNSTON MD [facility] App[facility] Type:URO Office Visit Diagnostic Tests Pending * Urine Cytology ([facility]) 08/29/24 [facility] Diagnosis Malignant neoplasm of prostate (HCC)- Primary Malignant neoplasm of prostate [facility] Diagnosis Malignant neoplasm of prostate (HCC)- Primary Malignant neoplasm of prostate documented in this encounter [facility] note* Diagnosis Malignant neoplasm of prostate (HCC)- Primary Malignant neoplasm of prostate [facility]* Diagnosis Malignant neoplasm of prostate (HCC)- Primary Malignant neoplasm of prostate documented in this encounter [facility] note* Diagnosis Malignant neoplasm of prostate (HCC) Malignant neoplasm of prostate [facility]* Diagnosis Malignant neoplasm of prostate (HCC)- Primary Malignant neoplasm of prostate documented in this encounter [facility] note* Diagnosis Malignant neoplasm of prostate (HCC)- Primary Malignant neoplasm of prostate [facility]* Diagnosis Malignant neoplasm of prostate (HCC)- Primary Malignant neoplasm of prostate [facility] noteNo assessment information availableSalem [facility] Work Phone: evaluation note* Diagnosis Hematuria, unspecified type- Primary Malignant neoplasm of prostate (HCC) Malignant neoplasm of prostate documented in this encounter [facility] note* Diagnosis Urinary tract infection without hematuria, site unspecified- Primary documented in this encounter [facility] note* Diagnosis History of prostate cancer- Primary Personal history of malignant neoplasm of prostate Spinal arthritis Spondylosis of unspecified site without mention of myelopathy Spinal stenosis of lumbar region, unspecified whether neurogenic claudication present documented [facility] this [facility]* Diagnosis Spinal stenosis of lumbar region without neurogenic claudication- Primary Spinal stenosis, lumbar region, without neurogenic claudication documented in [facility]* Diagnosis Spinal stenosis of lumbar region, unspecified whether neurogenic claudication present- Primary documented in this encounter [facility] note* Diagnosis Spinal stenosis, lumbar region with neurogenic claudication- Primary Foraminal stenosis of lumbar region Spinal stenosis, lumbar region, without neurogenic claudication Peripheral artery disease (HCC) Peripheral vascular disease, unspecified Prostate cancer (HCC) Malignant neoplasm of prostate documented in [facility] noteNo [employer] Other Evaluation note* Diagnosis Spinal stenosis, lumbar region with neurogenic claudication- Primary Foraminal stenosis of lumbar region Spinal stenosis, lumbar region, without neurogenic claudication documented in this [facility]* Diagnosis Spondylolisthesis of lumbar region- Primary Acquired spondylolisthesis documented in this encounter [facility] note* Diagnosis Hypertension, unspecified type Mixed hyperlipidemia Bilateral carotid artery disease, unspecified type (CMS/HCC) History of PR (myocardial infarction) Old myocardial infarction BMI 28.0-28.9,adult ASHD (arteriosclerotic heart disease) Coronary atherosclerosis of unspecified type of vessel, [place] or graft PVD (peripheral vascular disease) ([facility]/HCC) Unspecified peripheral vascular disease Smoker Tobacco use disorder Chest pain, unspecified type documented in this encounter [facility] Work Phone: Evaluation note* Diagnosis Onset Date Resolution Status Current every day smoker acutePAD (peripheral artery disease)[facility] Work Phone: Evaluation note* Diagnosis Onset Date Resolution Status Anemia of renal disease acuteCKD (chronic kidney disease) stage 3, GFR 30-59 ml/minacute [id number] hyperparathyroidismacuteUTI (urinary tract infection)[facility] Work Phone: Evaluation note* Diagnosis Primary hypertension [...] neoplasm of prostate Coronary artery disease involving [place] coronary artery of [place] heart without angina pectoris (CMS/HCC) H/O prostate cancer Mixed hyperlipidemia (CMS/HCC) Mixed hyperlipidemia Chronic bilateral low back pain with bilateral sciatica Coronary artery disease involving [place] coronary artery of [place] heart without angina pectoris (CMS/HCC)- Primary PAD (peripheral artery disease) (CMS/HCC) Unspecified peripheral vascular disease Primary hypertension (CMS/HCC) Unspecified essential hypertension Stage 3a chronic kidney disease (HCC) (CMS/HCC) Lumbar stenosis with neurogenic claudication Mixed hyperlipidemia (CMS/HCC) Mixed hyperlipidemia Elevated random blood glucose level Unintentional weight change Gastroesophageal reflux disease without esophagitis Esophageal reflux Coronary artery disease involving [place] coronary artery of [place] heart without angina pectoris (CMS/HCC)- Primary Stage 3a chronic kidney disease (HCC) (CMS/HCC) Lumbar stenosis with neurogenic claudication Primary hypertension (CMS/HCC)- Primary Unspecified essential hypertension Coronary artery disease involving [place] coronary artery of [place] heart without angina pectoris (CMS/HCC) Stage 3a [...] disease (HCC) (CMS/HCC) documented in [facility] encounter [facility]* Diagnosis Primary hypertension (CMS/HCC)- Primary Unspecified essential hypertension Coronary artery disease involving [place] coronary artery of [place] heart without angina pectoris (CMS/HCC) Stage 3a chronic kidney disease (HCC) (CMS/HCC) Gastroesophageal reflux disease without esophagitis Esophageal reflux Tobacco abuse Tobacco use disorder Prostate cancer (CMS/HCC) Malignant neoplasm of prostate Benign prostatic hyperplasia with lower urinary tract symptoms, symptom details unspecified documented in this encounter [facility] HealthcareEvaluation note* Diagnosis Primary hypertension ([facility]) Unspecified essential hypertension documented in this encounter [facility] HealthcareEvaluation note* Diagnosis Onset Date Resolution Status Admit Date Anemia of renal disease acuteMarch 2024 10:35amCKD (chronic kidney disease) stage 3, GFR 30-59 ml/minacuteMarch 2024 10:35amHypertensive chronic kidney disease with stage 1 through stage 4 chronic kiacuteMarch 2024 10:35amMicroscopic hematuriaacuteMarch 2024 10:35amSecondary hyperparathyroidismacuteMarch 2024 10:35am [facility] Work Phone: Evaluation note* Diagnosis Mixed hyperlipidemia- Primary Bilateral carotid artery disease, unspecified type Hypertension, unspecified type BMI 28.0-28.9,adult Smoker Tobacco use disorder Prostate cancer (Multi) Malignant neoplasm of prostate Chronic kidney disease, stage 3b (Multi) ASHD (arteriosclerotic heart disease) Coronary atherosclerosis of unspecified type of vessel, [place] or graft PVD (peripheral vascular disease) ([facility]) Unspecified peripheral vascular disease documented in this encounter [facility] Work Phone: Evaluation note* Diagnosis Onset Date Resolution Status Admit Date Anemia of renal disease acuteSeptember 2024 11:31amCKD (chronic kidney disease) stage 3, GFR 30-59 ml/minacuteSeptember 2024 11:31amHypertensive chronic kidney disease with stage 1 through stage 4 chronic kiacuteSeptember 2024 11:31amMicroscopic hematuriaacuteSeptember 2024 11:31amSecondary hyperparathyroidismacute Kelli 2024 11:31am [facility] Work Phone: History general Narrative - Reported* Type Description Date Medical History CKD (CHRONIC KIDNEY DISEASE) STA GE III Medical HistoryCLAUDICATIONMedical HistoryHYPERLIPIDEMIAMedical HistoryBPH Medical HistoryANXIETYMedical HistoryCORONARY ATHEROSCLEROSISMedical History PERIPHERAL ARTERIAL DISEASEMedical HistoryHYPERTENSIONMedical HistoryPROSTATE CANCERSurgical HistoryBILATERAL CAROTID [id number] History CORONARY STENT IN [id number]/1995Surgical HistoryPROSTATE SURGERYHospitalization HistorySEE ABOVE [facility] Other History general Narrative - Reported* Type Description Date Medical History CKD (CHRONIC KIDNEY DISEASE) STA GE III Medical HistoryCLAUDICATIONMedical HistoryHYPERLIPIDEMIAMedical HistoryBPH Medical HistoryANXIETYMedical HistoryCORONARY ATHEROSCLEROSISMedical History PERIPHERAL ARTERIAL DISEASEMedical HistoryHYPERTENSIONMedical HistoryPROSTATE CANCERSurgical HistoryBILATERAL CAROTID [id number] History CORONARY STENT IN [id number] HistoryPROSTATE SURGERYSurgical History ANGIOPLASTY LT03/2023Hospitalization HistorySEE ABOVE [facility] Other Hospital course Narrative No data available for this section [facility] Discharge instructions No data available for this section [facility] No data available for this section [facility] for [facility] (narrative)* Consultation (Routine) - AuthorizedSpecialtyDiagnoses / ProceduresReferred By Contact Referred To ContactCardiology Diagnoses Hypertension, unspecified type Mixed hyperlipidemia Bilateral carotid artery disease, unspecified type (CMS/HCC) Procedures Follow Up In Cardiology Chaim Grayson DO [address] [place] [address] 2, [address] [address] Chaim Grayson DO [address] [facility] 2, [address] [address] Referral IDStatusReasonStart DateExpiration DateVisits RequestedVisits [id number]/4/20241/ * Cardiovascular (Routine) - Pending ReviewSpecialtyDiagnoses / Procedures Referred By ContactReferred To Contact Diagnoses Mixed hyperlipidemia Bilateral carotid artery disease, unspecified type (CMS/HCC) Procedures ECG 12 Lead Chaim Grayson DO [address] [facility] 2, [place] [id number] Referral IDStatusReasonStwarrensville DateExpiration DateVisits RequestedVisits [id number] Review * Consultation (Routine) - AuthorizedSpecialtyDiagnoses / ProceduresReferred By ContactReferred To ContactCardiology Diagnoses Hypertension, unspecified type Bilateral carotid artery disease, unspecified type (CMS/HCC) Procedures Follow Up In Cardiology Chaim Grayson DO [place] [address] [place] [address], [address] [address] Referral IDStatusReasonStwarrensville DateExpiration DateVisits RequestedVisits [id number]/4/20241/3/202511 * Cardiac Stress Testing (Routine) - Pending ReviewSpecialtyDiagnoses / ProceduresReferred By ContactReferred To ContactRadiology Diagnoses Hypertension, unspecified type Bilateral carotid artery disease, unspecified type (CMS/HCC) Chest pressure Procedures Nuclear Stress Test CHG MYOCARDIAL SPECT MULTIPLE STUDIES CHG MYOCARDIAL SPECT SINGLE STUDY AT REST OR STRESS KenanhCaim DO [place] [address] [place] [address] [address], [address] [address] Referral IDStatusReasonStwarrensville DateExpiration DateVisits RequestedVisits [id number] Review [facility] Work Phone: Reason for referral (narrative)* Consultation (Routine) - Pending ReviewSpecialtyDiagnoses / ProceduresReferred By Contact Referred To ContactUrology Diagnoses Prostate cancer (CMS/HCC) Benign prostatic hyperplasia with lower urinary tract symptoms, symptom details unspecified Procedures DE OFFICE/OUTPATIENT NEW HIGH MDM 60 MINUTES Nsair Ward NP [address] [place] [address] Travis Bryant MD [address] [place] [address] Referral IDStatusReasonStart DateExpiration DateVisits RequestedVisits [id number] Review Specialty Services Required / Scheduling Instructions Please include OV note from today and from Dr. Johnston office VLADIMIR Allen for referral (narrative)No reason for referral information availableSelect [facility] Work Phone: Summary Purpose Family History No [...] kidney disease) stage 3, GFR 30-59 ml/min [id number] Secondary hyperparathyroidism UTI (urinary tract infection) Chief [...] artery disease, unspecified type (CMS/HCC) History of PR (myocardial infarction) ASHD (arteriosclerotic heart disease) PVD (peripheral vascular disease) (CMS/[facility]) Chest pain, unspecified type Procedures ECG 12 Lead Chaim Grayson, DO [address] [facility] 2, [address] [place], [place] [address] Referral IDStatusReasonStart DateExpiration DateVisits RequestedVisits [id number]/19/20243/19/[id number] / Procedures Referred By ContactReferred To ContactCardiology Diagnoses Bilateral carotid artery disease, unspecified type (CMS/[facility]) Procedures Follow Up In Cardiology Chaim Grayson, DO [address] [facility] 2, [address] [place] [id number] KenanChaim, DO [address] [facility] 2, [place] [phone] Referral IDStatusReasonStart DateExpiration DateVisits RequestedVisits [id number]/19/20243/[id number] / Procedures Referred By ContactReferred To [facility] Diagnoses Spondylolisthesis of lumbar region Procedures CONSULT TO [facility] (CHRONIC PAIN) OFFICE/OUTPATIENT [facility] 60 MINUTES Kodi Reynolds MD [address] [place] [address] Referral IDStatusReasonStart DateExpiration DateVisits RequestedVisits [id number] Review PCP Requested Referral /[id number] / ProceduresReferred By ContactReferred To Contact Diagnoses Spinal stenosis, lumbar region with neurogenic claudication Foraminal stenosis of lumbar region Procedures CONSULT TO SPINE SURGERY OFFICE/OUTPATIENT [facility] 60-74 MINUTES Jose Nichols DO [address] [place] [address] Referral IDStatusReasonStart DateExpiration DateVisits RequestedVisits [id number] Review PCP Requested Referral /[id number] / ProceduresReferred By ContactReferred To ContactMR IMAGING Diagnoses Spinal stenosis of lumbar region, unspecified whether neurogenic claudication present Procedures MRI LUMBAR SPINE WO/W IVCON MRI SPINAL CANAL LUMBAR W/O & W/CONTR MATRL Genoveva Nazario MD [address] [place] [address] Mr Imaging Referral IDStatusReasonStwarrensville DateExpiration DateVisits RequestedVisits [id number] Review Auto-Generated Referral /[id number] / ProceduresReferred By ContactReferred To ContactNeurosurgery Diagnoses Spinal arthritis Procedures CONSULT TO NEUROSURGERY OFFICE/OUTPATIENT [facility] 60-74 MINUTES Genoveva Nazario MD [address] [place] [address] Referral IDStatusReasonStwar[place] DateExpiration DateVisits RequestedVisits [id number] Review PCP Requested Referral / Additional Source [...] CREATED AUTHOR 06/12/2021 [facility] DATE CREATED AUTHOR AUTHOR'S ORGANIZ ATION 03/27/2022 [facility] DATE CREATED AUTHOR AUTHOR'S ORGANIZ ATION 11/07/2022 [facility] DATE CREATED AUTHOR AUTHOR'S ORGANIZ ATION 01/06/2023 [facility] DATE CREATED AUTHOR AUTHOR'S ORGANIZ ATION 06/16/[address] [facility] DATE CREATED AUTHOR AUTHOR'S ORGANIZ ATION 06/29/2023 [facility] DATE CREATED AUTHOR AUTHOR'S ORGANIZ ATION 08/17/2023 [facility] DATE CREATED AUTHOR AUTHOR'S ORGANIZ ATION 04/11/2024 [facility] DATE CREATED AUTHOR AUTHOR'S ORGANIZ ATION 04/21/2024 [facility] DATE CREATED AUTHOR AUTHOR'S ORGANIZ ATION 07/15/2024 [facility] DATE CREATED AUTHOR AUTHOR'S ORGANIZ ATION 08/15/2024 [facility] DATE CREATED AUTHOR AUTHOR'S ORGANIZ ATION 08/26/2024 [facility] DATE CREATED AUTHOR AUTHOR'S ORGANIZ ATION 08/30/2024 [facility] DATE CREATED AUTHOR AUTHOR'S ORGANIZ ATION 01/19/2025 [facility] DATE CREATED AUTHOR AUTHOR'S ORGANIZ ATION 03/04/2025 [facility] DATE CREATED AUTHOR AUTHOR'S ORGANIZ ATION 03/16/2025 [facility] DATE CREATED AUTHOR AUTHOR'S ORGANIZ ATION 03/20/2025 [facility] DATE CREATED AUTHOR AUTHOR'S ORGANIZ ATION 03/25/2025 [facility] DATE CREATED AUTHOR AUTHOR'S ORGANIZ ATION 04/04/2025 [facility] REASON FOR VISIT (unrecogniz ed section and content) ReasonCommentsConsultReasonCommentsPatient UpdateReasonCommentsPatient Update AppointmentReasonOnset DateCommentsSimulation Request Form2Reason CommentsSocial Work ServicesReasonCommentsOrdersReasonCommentsRadiotherapy On- treatment VisitReasonCommentsPhlebotomyReasonCommentsResultsAppointmentReason CommentsProstate CancerReasonCommentsReferral InformationReasonCommentsPatient QuestionAppointmentReasonCommentsOrdersReasonCommentsOrdersAppointmentReason CommentsNew PatientLow Back PainSpecialtyDiagnoses / ProceduresReferred By ContactReferred To ContactNeurosurgery Diagnoses Spinal arthritis Procedures CONSULT TO NEUROSURGERY OFFICE/OUTPATIENT [facility] 60-74 MINUTES Genoveva Nazario MD [address] [place] [address] [place] [address] Referral IDStatusReasonStart DateExpiration DateVisits RequestedVisits [id number] Review PCP Requested Referral [id number]c ConfirmationReasonComments Establish CareFawwad pvd HTN abn ekgSpecialtyDiagnoses / ProceduresReferred By ContactReferred To Contact Diagnoses Mixed hyperlipidemia Bilateral carotid artery disease, unspecified type (CMS/HCC) Procedures ECG 12 Lead Chaim Grayson, DO [address], [address] [place] [phone] Referral IDStatusReasonStart DateExpiration DateVisits RequestedVisits [id number] [id number] Back PainNew Patient EvaluationNew PatientSpecialtyDiagnoses / ProceduresReferred By Contact Referred To ContactRadiology Diagnoses Hypertension, unspecified type Bilateral carotid artery disease, unspecified type (CMS/HCC) Chest pressure Procedures Nuclear Stress Test CHG MYOCARDIAL SPECT MULTIPLE STUDIES CHG MYOCARDIAL SPECT SINGLE STUDY AT REST OR STRESS Chaim Grayson, DO [address] [facility] 2, [address] [place] [address] Referral IDStatusReasonStart DateExpiration DateVisits RequestedVisits [id number]/4/20241/3/[id number]-nm7taShfdwfqxr Diagnoses / ProceduresReferred By ContactReferred To ContactCardiology Diagnoses Hypertension, unspecified type Mixed hyperlipidemia Bilateral carotid artery disease, unspecified type (CMS/HCC) Procedures Follow Up In Cardiology Kenan, Chaim Davison, DO [address] [facility] 2, [address] [place] [address] Kenan Chaim Laney, DO [address], [address] [place] [address] Referral IDStatusReasonStart DateExpiration DateVisits RequestedVisits [id number]/4/20241/248968VygpfdCzhnwogbFaxcidwh Cancer SpecialtyDiagnoses / ProceduresReferred By ContactReferred To ContactRadiation Oncology / RADIATION ONCOLOGY Diagnoses Malignant neoplasm of prostate jeovany treating prostate Procedures SIMULATION [place] IMRT 28fractions Genoveva Nazario MD [address] [place] [address] [place] [address] Genoveva Nazario MD [address] [place] [address] [place] [address] Referral IDStatusReasonStart DateExpiration DateVisits RequestedVisits [id number]/27/20221/[id number] RefillReason Onset DateCommentsMed Gfowzb254ReasonOnset DateCommentsMed Refill 4ReasonCommentsFollow-upReasonCommentsAnnual Exam1y Follow up for Coronary Artery DiseaseSpecialtyDiagnoses / ProceduresReferred By Contact Referred To ContactCardiology Diagnoses Bilateral carotid artery disease, unspecified type Procedures Follow Up In Cardiology Chaim Grayson, [place] [id number] Phone: tel: fax: Chaim Grayson, [address], [place] [phone] Phone: tel: fax: Referral IDStatusReasonStart DateExpiration DateVisits RequestedVisits [id number]/19/20243/598878HtsqeaZnrai DateCommentsMed Cbhhnd5209/12/2024ReasonCommentsProstate CancerFollow up Source Comments (unrecognize d section and content) In the event this informatio n is protected by the Federal Confidentiality of Alcohol and Drug Abuse Patient Records regulations: The Federal rules restrict any use of the information to criminally investigate or prosecute any alcohol or drug abuse patient.[facility] HospitalIn the event this information is protected by the Federal Confidentiality of Alcohol and Drug Abuse Patient Records regulations: The Federal rules restrict any use of the information to criminally investigate or prosecute any alcohol or drug abuse patient.[facility] HospitalIn the event this information is protected by the Federal Confidentiality of Alcohol and Drug Abuse Patient Records regulations: The Federal rules restrict any use of the information to criminally investigate or prosecute any alcohol or drug abuse patient.[facility] HospitalIn the event this information is protected by the Federal Confidentiality of Alcohol and Drug Abuse Patient Records regulations: The Federal rules restrict any use of the information to criminally investigate or prosecute any alcohol or drug abuse patient.[facility] HospitalIn the event this information is protected by the Federal Confidentiality of Alcohol and Drug Abuse Patient Records regulations: The Federal rules restrict any use of the information to criminally investigate or prosecute any alcohol or drug abuse patient.[facility] HospitalIn the event this information is protected by the Federal Confidentiality of Alcohol and Drug Abuse Patient Records regulations: The Federal rules restrict any use of the information to criminally investigate or prosecute any alcohol or drug abuse patient.[facility] HospitalIn the event this information is protected by the Federal Confidentiality of Alcohol and Drug Abuse Patient Records regulations: The Federal rules restrict any use of the information to criminally investigate or prosecute any alcohol or drug abuse patient.[facility] HospitalIn the event this information is protected by the Federal Confidentiality of Alcohol and Drug Abuse Patient Records regulations: The Federal rules restrict any use of the information to criminally investigate or prosecute any alcohol or drug abuse patient.[facility] HospitalIn the event this information is protected by the Federal Confidentiality of Alcohol and Drug Abuse Patient Records regulations: The Federal rules restrict any use of the information to criminally investigate or prosecute any alcohol or drug abuse patient.[facility] HospitalIn the event this information is protected by the Federal Confidentiality of Alcohol and Drug Abuse Patient Records regulations: The Federal rules restrict any use of the information to criminally investigate or prosecute any alcohol or drug abuse patient.[facility] HospitalIn the event this information is protected by the Federal Confidentiality of Alcohol and Drug Abuse Patient Records regulations: The Federal rules restrict any use of the information to criminally investigate or prosecute any alcohol or drug abuse patient.[facility] HospitalIn the event this information is protected by the Federal Confidentiality of Alcohol and Drug Abuse Patient Records regulations: The Federal rules restrict any use of the information to criminally investigate or prosecute any alcohol or drug abuse patient.[facility] HospitalIn the event this information is protected by the Federal Confidentiality of Alcohol and Drug Abuse Patient Records regulations: The Federal rules restrict any use of the information to criminally investigate or prosecute any alcohol or drug abuse patient.[facility] HospitalIn the event this information is protected by the Federal Confidentiality of Alcohol and Drug Abuse Patient Records regulations: The Federal rules restrict any use of the information to criminally investigate or prosecute any alcohol or drug abuse patient.[facility] HospitalIn the event this information is protected by the Federal Confidentiality of Alcohol and Drug Abuse Patient Records regulations: The Federal rules restrict any use of the information to criminally investigate or prosecute any alcohol or drug abuse patient.[facility] HospitalIn the event this information is protected by the Federal Confidentiality of Alcohol and Drug Abuse Patient Records regulations: The Federal rules restrict any use of the information to criminally investigate or prosecute any alcohol or drug abuse patient.[facility] HospitalIn the event this information is protected by the Federal Confidentiality of Alcohol and Drug Abuse Patient Records regulations: The Federal rules restrict any use of the information to criminally investigate or prosecute any alcohol or drug abuse patient.[facility] HospitalIn the event this information is protected by the Federal Confidentiality of Alcohol and Drug Abuse Patient Records regulations: The Federal rules restrict any use of the information to criminally investigate or prosecute any alcohol or drug abuse patient.[facility] HospitalIn the event this information is protected by the Federal Confidentiality of Alcohol and Drug Abuse Patient Records regulations: The Federal rules restrict any use of the information to criminally investigate or prosecute any alcohol or drug abuse patient.[facility] HospitalIn the event this information is protected by the Federal Confidentiality of Alcohol and Drug Abuse Patient Records regulations: The Federal rules restrict any use of the information to criminally investigate or prosecute any alcohol or drug abuse patient.[facility] HospitalIn the event this information is protected by the Federal Confidentiality of Alcohol and Drug Abuse Patient Records regulations: The Federal rules restrict any use of the information to criminally investigate or prosecute any alcohol or drug abuse patient.[facility] HospitalIn the event this information is protected by the Federal Confidentiality of Alcohol and Drug Abuse Patient Records regulations: The Federal rules restrict any use of the information to criminally investigate or prosecute any alcohol or drug abuse patient.[facility] HospitalIn the event this information is protected by the Federal Confidentiality of Alcohol and Drug Abuse Patient Records regulations: The Federal rules restrict any use of the information to criminally investigate or prosecute any alcohol or drug abuse patient.[facility] HospitalIn the event this information is protected by the Federal Confidentiality of Alcohol and Drug Abuse Patient Records regulations: The Federal rules restrict any use of the information to criminally investigate or prosecute any alcohol or drug abuse patient.[facility] HospitalIn the event this information is protected by the Federal Confidentiality of Alcohol and Drug Abuse Patient Records regulations: The Federal rules restrict any use of the information to criminally investigate or prosecute any alcohol or drug abuse patient.[facility] HospitalIn the event this information is protected by the Federal Confidentiality of Alcohol and Drug Abuse Patient Records regulations: The Federal rules restrict any use of the information to criminally investigate or prosecute any alcohol or drug abuse patient.[facility] HospitalIn the event this information is protected by the Federal Confidentiality of Alcohol and Drug Abuse Patient Records regulations: The Federal rules restrict any use of the information to criminally investigate or prosecute any alcohol or drug abuse patient.[facility] HospitalIn the event this information is protected by the Federal Confidentiality of Alcohol and Drug Abuse Patient Records regulations: The Federal rules restrict any use of the information to criminally investigate or prosecute any alcohol or drug abuse patient.[facility] HospitalIn the event this information is protected by the Federal Confidentiality of Alcohol and Drug Abuse Patient Records regulations: The Federal rules restrict any use of the information to criminally investigate or prosecute any alcohol or drug abuse patient.[facility] HospitalIn the event this information is protected by the Federal Confidentiality of Alcohol and Drug Abuse Patient Records regulations: The Federal rules restrict any use of the information to criminally investigate or prosecute any alcohol or drug abuse patient.[facility] HospitalIn the event this information is protected by the Federal Confidentiality of Alcohol and Drug Abuse Patient Records regulations: The Federal rules restrict any use of the information to criminally investigate or prosecute any alcohol or drug abuse patient.[facility] HospitalIn the event this information is protected by the Federal Confidentiality of Alcohol and Drug Abuse Patient Records regulations: The Federal rules restrict any use of the information to criminally investigate or prosecute any alcohol or drug abuse patient.[facility] HospitalIn the event this information is protected by the Federal Confidentiality of Alcohol and Drug Abuse Patient Records regulations: The Federal rules restrict any use of the information to criminally investigate or prosecute any alcohol or drug abuse patient.[facility] HospitalIn the event this information is protected by the Federal Confidentiality of Alcohol and Drug Abuse Patient Records regulations: The Federal rules restrict any use of the information to criminally investigate or prosecute any alcohol or drug abuse patient.[facility] HospitalIn the event this information is protected by the Federal Confidentiality of Alcohol and Drug Abuse Patient Records regulations: The Federal rules restrict any use of the information to criminally investigate or prosecute any alcohol or drug abuse patient.[facility] HospitalIn the event this information is protected by the Federal Confidentiality of Alcohol and Drug Abuse Patient Records regulations: The Federal rules restrict any use of the information to criminally investigate or prosecute any alcohol or drug abuse patient.[facility] Care Teams (unrecognized sec tion and [...] Provider, Other Provid er Active Loco Ferrera RECEIVING CLERK-CAttending ProviderActiveTeam MemberRelationshipSpecialtyStart DateEnd Date Shaikh Storm MD [address] [place] [address] PCP - GeneralPrimary Care12/06/21 Barbara Johnston MD [address] [place] [address] ReferringUrology12/06/21Team MemberRelationshipSpecialtyStart DateEnd Date Shaikh Storm MD [address] [place] [address] PCP - GeneralPrimary Care12/06/21 Barbara Johnston MD [address] [place] [address] ReferringUrology12/06/21Team MemberRelationshipSpecialtyStart DateEnd Date Shaikh Storm MD [address] [place] [address] PCP - GeneralPrimary Care12/06/21 Barbara Johnston MD [address] [place] [address] ReferringUrology12/06/21Team MemberRelationshipSpecialtyStart DateEnd Date Shaikh Storm MD [address] [place] [address] PCP - GeneralPrimary Care12/06/21 Barbara Johnston MD [address] [place] [address] ReferringUrology12/06/21Team MemberRelationshipSpecialtyStart DateEnd Date Shaikh Storm MD [address] [place] [address] PCP - GeneralPrimary Care12/06/21 Barbara Johnston MD [address] [place] [address] ReferringUrology12/06/21 Constance Durand, [facility] Social Hwitkg35/4/22Team MemberRelationshipSpecialtyStart DateEnd Date Shaikh Storm MD [address] [place] [address] PCP - GeneralPrimary Care12/06/21 Barbara Johnston MD [address] [place] [address] ReferringUrology12/06/21 Constance Durand, [facility] Social Jcqcsf88/4/22Team MemberRelationshipSpecialtyStart DateEnd Date Shaikh Storm MD [address] [place] [address] PCP - GeneralPrimary Care12/06/21 Barbara Johnston MD [address] [place] [address] ReferringUrology12/06/21 [facility] Social Sblvbd72/4/22Team MemberRelationshipSpecialtyStart DateEnd Date Shaikh Storm MD [address] [place] [address] PCP - GeneralPrimary Care12/06/21 Barbara Johnston MD [address] [place] [address] ReferringUrology12/06/21 [facility] Social Ntynwi78/4/22Team MemberRelationshipSpecialtyStart DateEnd Date Shaikh Storm MD [address] [place] [address] PCP - GeneralPrimary Care12/06/21 Barbara Johnston MD [address] [place] [address] ReferringUrology12/06/21 Constance Durand, [facility] Social Ifswgs97/4/22Team MemberRelationshipSpecialtyStart DateEnd Date Shaikh Storm MD [address] [place] [address] PCP - GeneralPrimary Care12/06/21 Barbara Johnston MD [address] [place] [address] ReferringUrology12/06/21 Constance Durand, [facility] Social Azkqcf83/4/22Team MemberRelationshipSpecialtyStart DateEnd Date Shaikh Storm MD [address] [place] [address] PCP - GeneralPrimary Care12/06/21 Barbara Johnston MD [address] [place] [address] ReferringUrology12/06/21 Constance Durand, [facility] Social Mmckpy07/4/22Team MemberRelationshipSpecialtyStart DateEnd Date Shaikh Storm MD [address] [place] [address] PCP - GeneralPrimary Care12/06/21 Barbara Johnston MD [address] [place] [address] ReferringUrology12/06/21 Constance Durand, [facility] Social Xhsxya17/4/22Team MemberRelationshipSpecialtyStart DateEnd Date Shaikh Storm MD [address] [place] [address] PCP - GeneralPrimary Care12/06/21 Barbara Johnston MD [address] [place] [address] ReferringUrology12/06/21 [facility] Social Hkyytp42/4/22Team MemberRelationshipSpecialtyStart DateEnd Date Shaikh Storm MD [address] [place] [address] PCP - GeneralPrimary Care12/06/21 Barbara Johnston MD [address] [place] [address] ReferringUrology12/06/21 [facility] Social Hrakad43/4/22Team MemberRelationshipSpecialtyStart DateEnd Date Shaikh Storm MD [address] [place] [address] PCP - GeneralPrimary Care12/06/21 Barbara Johnston MD [address] [place] [address] ReferringUrology12/06/21 [facility] Social Akedmv81/4/22 Team Status: Inactive Member Role Status Dates Shaikh Dotty MD Primary Care Provider Active Zeinab Justice [facility] ProviderActiveTeam MemberRelationshipSpecialtyStart DateEnd Date Shaikh Storm MD [address] [place] [address] PCP - GeneralPrimary Care12/06/21 Barbara Johnston MD [address] [place] [address] ReferringUrology12/06/21 Constance Durand LSW Social Nxywof63/4/22 Team Status: Inactive Member Role Status Dates Shaikh Dotty MD Primary Care Provider Active Lyla Nazario [facility] ProviderActiveTeam MemberRelationshipSpecialty Start DateEnd Date Shaikh Storm MD [address] [place] [address] PCP - GeneralPrimary Care12/06/21 Barbara Johnston MD [address] [place] [address] ReferringUrology12/06/21 Constance Durand LSW Social Weqbfd55/4/22Team MemberRelationshipSpecialtyStart DateEnd Date Shaikh Storm MD [address] [place] [address] PCP - GeneralPrimary Care12/06/21 Barbara Johnston MD [address] [place] [address] ReferringUrology12/06/21 Constance Durand LSW Social Pgxhwo39/4/22Team MemberRelationshipSpecialtyStart DateEnd Date Shaikh Storm MD [address] [place] [address] PCP - GeneralPrimary Care12/06/21 Barbara Johnston MD [address] [place] [address] ReferringUrology12/06/21 Constance Durand LSW Social Edfgrr50/4/22Team MemberRelationshipSpecialtyStart DateEnd Date Shaikh Storm MD [address] [place] [address] PCP - GeneralPrimary Care12/06/21 Barbara Johnston MD [address] [place] [address] ReferringUrology12/06/21 Constance Durand, [facility] Social Zmoasj09/4/22Team MemberRelationshipSpecialtyStart DateEnd Date Shaikh Storm MD [address] [place] [address] PCP - GeneralPrimary Care12/06/21 Barbara Johnston MD [address] [place] [address] ReferringUrology12/06/21 [facility] Social Bgigca99/4/22Te MemberRelationshipSpecialtyStart DateEnd Date Shaikh Storm MD [address] [place] [place] [address] PCP - GeneralPrimary Care12/06/21 Barbara Johnston MD [address] [place] [address] ReferringUrology12/06/21 [facility] Social Lommrb60/4/22Te MemberRelationshipSpecialtyStart DateEnd Date Shaikh Storm MD [address] [place] [address] PCP - GeneralPrimary Care12/06/21 Barbara Johnston MD [address] [place] [address] ReferringUrology12/06/21 Constance Durand, [facility] Social Lotayc52/4/22Team MemberRelationshipSpecialtyStart DateEnd Date Shaikh Storm MD [address] [place] [address] PCP - GeneralPrimary Care12/06/21 Barbara Johnston MD [address] [place] [address] ReferringUrology12/06/21 Constance Durand, [facility] Social Hzyacg72/4/22Team MemberRelationshipSpecialtyStart DateEnd Date Shaikh Storm MD [address] [place] [address] PCP - GeneralPrimary Care12/06/21 Barbara Johnston MD [address] [place] [address] ReferringUrology12/06/21 Constance Durand, [facility] Social Wyuqgu11/4/22 Team Status: Inactive Member Role Status Dates Shaikh Dotty MD Primary Care Provider Active Temporary AnesthesiologistAttending ProviderActiveTeam MemberRelationship SpecialtyStart DateEnd Date Shaikh Storm MD [address] [place] [address] PCP - GeneralPrimary Care12/06/21 Barbara Johnston MD [address] [place], [place] [address] ReferringUrology12/06/21 Constance Durand, [facility] Social Amwfrh82/4/22 Team Status: Inactive Member Role Status Dates Shaikh Dotty MD Primary Care Provider Active Qasim May ProviderActive Team Status: Inactive Member Role Status Dates Shaikh Dotty MD Primary Care Provider Active Qasim Cueva ProviderActiveTeam MemberRelationshipSpecialtyStart DateEnd Date Shaikh Storm MD [address] [place] [address] PCP - GeneralPrimary Care12/06/21 Barbara Johnston MD [address] [place] [address] ReferringUrology12/06/21 Constance Durand, [facility] Social Tybbiq55/4/22Team MemberRelationshipSpecialtyStart DateEnd Date Shaikh Storm MD [address] [place] [address] PCP - GeneralPrimary Care12/06/21 Barbara Johnston MD [address] [place] [address] ReferringUrology12/06/21 Constance Durand, [facility] Social Qthbxm02/4/22 Team Status: Inactive Member Role Status Dates Shaikh Dotty MD Primary Care Provider, Attending Pr ovider Active Team MemberRelationshipSpecialtyStart DateEnd Date Shaikh Storm MD [address] [place] [address] PCP - GeneralInternal Medicine06/04/23Team MemberRelationshipSpecialtyStart Date End Date Shaikh Storm MD [address] [place] [address] PCP - GeneralPrimary Care12/06/21 Barbara Johnston MD [address] [place] [address] ReferringUrology12/06/21 Constance Durand LSW Social Yufkjg60/4/22Team MemberRelationshipSpecialtyStart DateEnd Date Shaikh Storm MD [address] [place] [address] PCP - GeneralInternal Medicine06/04/23Team MemberRelationshipSpecialtyStart Date End Date Shaikh Storm MD [address] [place] [address] PCP - GeneralInternal Medicine06/04/23Team MemberRelationshipSpecialtyStart Date End Date Shaikh Storm MD PCP - GeneralInternal Medicine06/04/23 Team Status: Inactive Member Role Status Dates Shaikh Dotty MD Primary Care Provider Active Start: October 15, 2023 End: October 15, 2023Bonnie Tan RECEIVING CLERK-CAttending ProviderActiveStart: October 15, 2023 End: October 15, 2023Team MemberRelationshipSpecialtyStart DateEnd Date Shaikh Storm MD [address] [place] [address] PCP - GeneralPrimary Care12/06/21 Barbara Johnston MD [address] [place] [address] ReferringUrology12/06/21 Constance Durand LSW Social Gfapee25/4/22Team MemberRelationshipSpecialtyStart DateEnd Date Shaikh Storm MD [address] [place] [address] PCP - GeneralPrimary Care12/06/21 Barbara Johnston MD [address] [place] [address] ReferringUrology12/06/21 Constance Durand LSW Social Lcvzqa75/4/22 Team Status: Active Member Role Status Dates [...] Date Brian Avalos MD [address] [place] [address] PCP - GeneralFamily Medicine01/12/24 Nasir Ward NP [address] [place] [address] Nurse PractitionerFamily Medicine01/12/24Team MemberRelationshipSpecialtyStart DateEnd Date Brian Avalos MD [address] [place] [address] PCP - [facility] Medicine01/12/24 Nasir Ward NP [address] [place], [place] [address] Nurse PractitionerP[facility]01/12/24Team MemberRelationshipSpecialtyStart DateEnd Date Brian Avalos MD [address] [place], [place] [address] PCP - GeneralP[facility]01/12/24 Nasir Ward, VALENTIN [address] [place], [place] [address] Nurse PractitionerP[facility]mont [facility]01/12/24Team MemberRelationshipSpecialtyStart DateEnd Date Brian Avalos MD [address] [place], [place] [address] PCP - GeneralP[facility]01/12/24 Nasir Ward, VALENTIN [address] [place] [address] Nurse PractitionerPiedmont [facility]01/12/24Team MemberRelationshipSpecialtyStart DateEnd Date Brian Avalos MD [address] [place], [place] [address] PCP - GeneralP[facility]01/12/24 Nasir Ward, VALENTIN [address] [place] [address] Nurse PractitionerP[facility]01/12/24Team MemberRelationshipSpecialtyStart DateEnd Date Brian Avalos MD [address] [place] [address] PCP - GeneralP[facility]01/12/24 Nasir Ward NP [address] [place] [address] Nurse PractitionerPiedmont [facility]01/12/24Team MemberRelationshipSpecialtyStart DateEnd Date Brian Avalos MD [address] [place], [place] [address] PCP - [facility]01/12/24 Nasir Ward NP [address] [place], [place] [address] Nurse PractitionerP[facility]mont [facility]01/12/24 Team Status: Inactive Member Role Status Dates [...] : August 15, 2024 End: August 15, 2024[facility] ABDIfainacentral alabama va [facility] center–t[facility]kegeenathaniel Care ProviderActiveStart: August 15, 2024 End: August 15, 2024Team MemberRelationshipSpecialtyStart DateEnd Date Shaikh Storm MD PCP - GeneralAri[facility] Hospitalnal Medicine06/04/23Team MemberRelationshipSpecialtyStart Date End Date Brian Avalos MD [address] [place] [address] PCP - [facility]Law[facility] Medicine01/12/24 Nasir Ward NP [address] [place] [address] Nurse PractitionerLawrence F. [facility] Medicine01/12/24Team MemberRelationshipSpecialtyStart DateEnd Date Brian Avalos MD [address] [place] [address] PCP - [facility]Law[facility] Medicine01/12/24 Nasir Ward NP [address] [place] [address] Nurse PractitionerLawrence F. [facility] Medicine01/12/24Team MemberRelationshipSpecialtyStart DateEnd Date Shaikh Storm MD [address] [place] [address] PCP - GeneralPrhugh chatham memorial hospitalry Care12/06/21 Barbara Johnston MD [address] [place] [address] ReferringUrology12/06/21 Constance Durand LSW Social Ndqmdj27/4/22Team MemberRelationshipSpecialtyStart DateEnd Date Brian Avalos MD PCP - GeneralLaw[facility] Medicine01/12/24 Nasir Ward NP Nurse PractitionerLawrence F. [facility]ig[facility] Medicine01/12/24 Team Status: Active Member Role [...] - GeneralFamily Medicine01/12/24 Nasir Ward NP Nurse PractitionerLawrence F. [facility]igley [facility] Medicine01/12/24 Goals (unrecognized section and content) [...] BE BASED ON THE PRIMARY CLINICAL RECORDS. [email or web address] [facility] provides no warranty or guarantee of the accuracy or completeness of information in this document.
--- NOTE | 2025-05-03 10:56 | PM.CN ---
Consult Note: HPI Data of Consult Patient: known to practice within the last 3 years Requesting Physician: Jennie Ferrera NP Primary Care Provider: Lucinda Nuñez DO Consult Narrative Reason for consult: back pain Narrative: Vasyl Broussard a pleasant 79 year old male with chronic low back pain post L4/5 discectomy/laminectomy continues to endorse moderate to severe low back pain. Pt has failed to benefit from > 6 weeks of HEP, heat, ice, tylenol, and cannot take NSAIDs on plavix. Pain today 2/10 increasing to 10/10 with standing, walking, bending, weather changes, and activity. notes improvement with sleep, lying, and sitting. utilizing norco 5-325mg bid prn pain with benefit without side effects. notes moderate pain relief for 5-6 hours. utilizing flexeril 10mg hs prn pain/spasms. cc:: CC: Jennie Ferrera NP Review of Systems ROS Musculoskeletal Reports: back pain, extremity pain and joint pain PFSH PFSH Medical History (Updated 03/13/25 @ 14:28 by Livier Saldivar NP) Arthritis ?M19.90 - Unspecified osteoarthritis, unspecified site (ICD-10) Transient ischemic attack ?G45.9 - Transient cerebral ischemic attack, unspecified (ICD-10) Myocardial infarction ?I21.9 - Acute myocardial infarction, unspecified (ICD-10) High cholesterol ?E78.00 - Pure hypercholesterolemia, unspecified (ICD-10) Hypotension after procedure ?I95.81 - Postprocedural hypotension (ICD-10) Peripheral vascular disease ?I73.9 - Peripheral vascular disease, unspecified (ICD-10) Carotid artery disease ?I77.9 - Disorder of arteries and arterioles, unspecified (ICD-10) Back pain ?M54.9 - Dorsalgia, unspecified (ICD-10) CAD (coronary artery disease) ?I25.10 - Atherosclerotic heart disease of [place] coronary artery without angina pectoris (ICD-10) Bladder tumor ?D49.4 - Neoplasm of unspecified behavior of bladder (ICD-10) History of stress test ?Z92.89 - Personal history of other medical treatment (ICD-10) Osteoarthritis ?M19.90 - Unspecified osteoarthritis, unspecified site (ICD-10) Hearing deficit ?H91.90 - Unspecified hearing loss, unspecified ear (ICD-10) Prostate cancer ?C61 - Malignant neoplasm of prostate (ICD-10) Enlarged prostate ?N40.0 - Benign prostatic hyperplasia without lower urinary tract symptoms (ICD-10) Kidney disease ?N28.9 - Disorder of kidney and ureter, unspecified (ICD-10) Surgical History H/O angioplasty ?Z98.62 - Peripheral vascular angioplasty status (ICD-10) History of cardiac catheterization ?Z98.890 - Other specified postprocedural states (ICD-10) History of colonoscopy ?Z98.890 - Other specified postprocedural states (ICD-10) History of spinal surgery ?Z98.890 - Other specified postprocedural states (ICD-10) S/P cataract extraction and insertion of intraocular lens ?Z98.49 - Cataract extraction status, unspecified eye (ICD-10) ?Z96.1 - Presence of intraocular lens (ICD-10) H/O endarterectomy ?Z98.890 - Other specified postprocedural states (ICD-10) History of bowel resection ?Z90.49 - Acquired absence of other specified parts of digestive tract (ICD-10) History of exploratory laparotomy ?Z98.890 - Other specified postprocedural states (ICD-10) History of lumbar discectomy ?Z98.890 - Other specified postprocedural states (ICD-10) History of heart artery stent ?Z95.5 - Presence of coronary angioplasty implant and graft (ICD-10) Family History Other Family history of Parkinson disease Family history of diabetes mellitus Family history of heart disease Social History Within the past year, how often did you have a drink containing alcohol: never Score interpretation: A score less than 4 is consistent with normal alcohol consumption. Smoking status: Current every day smoker What tobacco products do you use: cigarettes Cigarettes per day: 22 Years smoked: 68 Smoking pack-years: 74.80 Non-prescribed substance use: denies use Highest level of school completed/degree received: 10th grade Meds Home Medications and Allergies Home Medications ?Medication ?Instructions ?Recorded ?Confirmed ?Type amlodipine 10 mg tablet 10 mg PO DAILY 02/05/23 03/23/25 History aspirin 81 mg capsule 81 mg PO DAILY 02/05/23 03/23/25 History clopidogrel 75 mg tablet (Plavix) 75 mg PO DAILY 07/30/23 03/23/25 History pravastatin 40 mg tablet 40 mg PO DAILY 07/30/23 03/23/25 History naloxone 4 mg/actuation nasal 4 mg intranasal Q2M PRN opioid 05/26/24 03/23/25 Rx spray (Narcan) overdose #2 ea valsartan 80 mg tablet 80 mg PO DAILY 09/21/24 03/23/25 History cyclobenzaprine 10 mg tablet 10 mg PO HS PRN muscle spasm #30 02/08/25 03/23/25 Rx tabs hydrocodone 5 mg-acetaminophen 325 1 tab PO BID PRN pain #60 tabs 03/02/25 03/23/25 Rx mg tablet ergocalciferol (vitamin D2) 1,250 50,000 unit PO QWEEK 03/13/25 03/23/25 History mcg (50,000 unit) capsule ferrous sulfate 325 mg (65 mg 325 mg PO DAILY 03/13/25 03/23/25 History iron) tablet,delayed release nitroglycerin 0.4 mg sublingual 0.4 mg sublingual Q5M 03/13/25 03/23/25 History tablet cephalexin 500 mg capsule 500 mg PO BID 5 days #10 caps 03/23/25 Rx vibegron 75 mg tablet (Gemtesa) 75 mg PO DAILY #7 tabs 03/23/25 Rx hydrocodone 5 mg-acetaminophen 325 1 tab PO BID PRN pain #60 tabs 03/31/25 Rx mg tablet Allergies Allergy/AdvReac Type Severity Reaction Status Date / Time ezetimibe Allergy myalgia Verified 03/23/25 07:11 Exam Constitutional Documenting provider has reviewed patient's vital signs: yes Common normals: no apparent distress, oriented x3 and alert General appearance: cooperative HENMT Common normals: normocephalic, hearing grossly normal bilaterally and moist oral mucous membranes Head and scalp: normocephalic Eye Common normals: PERRL Pupil: PERRL Neck & C-Spine Common normals: full ROM General: normal visual inspection Chest Common normals: inspection of chest normal Respiratory Common normals: normal respiratory effort, no retractions and no use of accessory muscles Back & Pelvis Lumbar spine/lower back: ROM limited, pain with ROM, straight leg raise positive right and straight leg raise positive left Other: strength 4/5 in BLE sensation intact BLE notes significant pain with standing and walking, as well as forward flexion. pain does improve significantly with sitting and lying Neuro Common normals: oriented x3 Sensorium/orientation: alert Psych Common normals: mental status grossly normal, thought process normal, cooperative, affect normal, speech normal and activity/motor behavior normal Speech: normal speech Thought process: normal thought process Results Additional Findings Additional findings: If on a controlled substance or opioids, I have checked an [place] report on this patient and there are no aberrancies noted in the prescribing history.??If on a controlled substance or opioid a drug screen was completed and reviewed within the last year, and if there has not been a drug screen completed we ordered one today to monitor higher risk, state monitored pain medication use. As part of providing excellent, safe, comprehensive care, the following was completed at our patient's visit: 1. A medication reconciliation and review to ensure accurate knowledge of current/active medications, including asking our patients to inform us about any [id number] medications or herbal remedies/nutritional supplements/alternative remedies. 2. A review to specifically ensure our patients have had annual screening for screening for depression, screening for tobacco use, and screening for unhealthy alcohol use. For concerning screenings had a discussion with the patient, provided patient education, and recommended follow-up with primary care provider when appropriate. If patient noted with a risk of falling, they received education on strength, gait, and balance training to prevent future risk of falling. Portions of this note may have been carried over from the previous visit and updated as appropriate. Please note this office utilizes paper charting in addition to the electronic medical record. A list of current medications, vitals, and PMH is available there as the clinical staff outside of myself do not have access to [employer] charting during the clinic day operations. As part of providing quality comprehensive care the current medications, vitals, and PMH were reviewed in the paper chart. 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 Patient has completed >6 weeks of guided home exercise program and/or formal physical therapy program without relief of their symptoms.? The Oswestry Disability Index was completed, and the patient scored a 38%.? continue flexeril 10mg hs prn pain/spasms continue hydrocodone-acetaminophen 5-325mg bid prn moderate to severe pain, notes moderate to significant relief for 5-6 hours after each dose without side effects will request ns consultation notes, pt not interested in scs trial at this time. pending additional evaluation with oncology for concerns of elevated PSA f/u 3 months for medication management, sooner if needed
== END 2025-05-03 10:24 | disposition home or self-care (01) ==
LOC: PM 10:24
PROVIDERS: PCP Family Medicine; Visit Provider Nurse Practitioner
DX: M96.1 Postlaminectomy syndrome, not elsewhere classified (principal); M48.062 Spinal stenosis, lumbar region with neurogenic claudication; M47.816 Spondylosis without myelopathy or radiculopathy, lumbar region; M62.838 Other muscle spasm; Z79.891 Long term (current) use of opiate analgesic
CPT/HCPCS: G0463